=== PATIENT | male | born 1955 | race Caucasian/White ===

== ENCOUNTER 2019-04-21 22:12 | Emergency (ER) | payer OTHER ==
[2019-04-21 23:14] LABS: Absolute Lymphocytes (CBC) 0.1 K/uL (0.7-4.9); Basophils % 0.6 % (0-1.3); Lymphocytes % 4.8 % (15.3-44.8); MPV 9.7 fL (7.6-11.3); RBC Red Blood Cell Count 3.11 M/uL (4.33-5.43)
[2019-04-21 23:20] LABS: Protime INR 2.2
[2019-04-21] MEDS ORDERED: Levofloxacin500mg IV 500 MG/100 ML BAG IV ONE (23:55)
[2019-04-21] MEDS ORDERED: CEFEPIME 2 GM VIAL ONE (23:55)
[2019-04-21] MEDS ORDERED: NA CHLORIDE 0.9% 250 ML ONE (23:55)
[2019-04-22 00:14] LABS: ALT/SGPT 50 U/L (12-78); AST/SGOT 42 U/L (15-37); Alkaline Phosphatase 257 U/L (45-117); BUN Blood Urea Nitrogen 47 mg/dL (7-18); Bicarbonate 17 mmol/L (21-32); Bilirubin Direct 1.3 mg/dL (0-0.2); Bilirubin Total 2.4 mg/dL (0.2-1.0); Glucose Level 77 mg/dL (74-106); NT PRO-BNP 2131 pg/mL (<125); Potassium 5.4 mmol/L (3.5-5.1); Protein, Total 5.5 g/dL (6.4-8.2); Sodium Level 147 mmol/L (136-145); Troponin (Emerg Dept Use Only) < 0.02 ng/mL (0.0-0.045)
[2019-04-22 00:19] LABS: Magnesium 1.2 mg/dL (1.8-2.4)
[2019-04-22 00:30] LABS: Blood Morphology Comment NOT SEEN (NOT SEEN); Platelet Estimate DECR
[2019-04-22] MEDS ORDERED: MORPHINE 2 MG/ML SYR ONE (01:47)
[2019-04-22] MEDS ORDERED: ONDANSETRON 4 MG/2 ML VIAL ONE (01:47)
[2019-04-22] MEDS ORDERED: MAGNESIUM SULFATE 1 gm IVPB 1 GM/100 ML BAG IV ONE (01:48)
--- NOTE | 2019-04-22 01:48 | EDPHYS ---
Physician Documentation [facility] Name: Joel Desouza Age: 63 yrs Sex: Male : 1955 Arrival Date: 04/21/2019 Time: 22:17 Bed 4 Private MD: ED Physician Diaz Millan HPI: 04/22 00:48 This 63 yrs old Male presents to ER via Ambulatory with complaints of tw4 Shortness Of Breath, Vomiting. 00:48 The patient has shortness of breath at rest. Onset: The symptoms/episode began/occurred tw4 today. Duration: The symptoms are continuous, and are unchanged since they started. The patient's shortness of breath has no apparent modifying factors. Associated signs and symptoms: The patient has no apparent associated signs or symptoms. Severity of symptoms: At their worst the symptoms were mild in the emergency department the symptoms are unchanged. The patient has not experienced similar symptoms in the past. Historical: - Allergies: 04/21 22:42 No Known Allergies; ao - Home Meds: 22:42 tocophersolan oral oral [Active]; Prednisone 4 MG Oral [Active]; Metoprolol Tartrate ao Oral [Active]; Omeprazole Oral [Active]; - PMHx: 22:42 Cirrhosis; ao - PSHx: 22:42 Lung transplant; ao - Immunization history:: Adult Immunizations up to date. - Social history:: Smoking status: Patient/guardian denies using tobacco. - Ebola Screening: : Patient negative for fever greater than or equal to 101.5 degrees Fahrenheit, and additional compatible Ebola Virus Disease symptoms Patient denies exposure to infectious person Patient denies travel to an Ebola-affected area in the 21 days before illness onset. ROS: 04/22 00:48 ENT: Negative for injury, pain, and discharge, Neck: Negative for injury, pain, and tw4 swelling, Cardiovascular: Negative for chest pain, palpitations, and edema, Abdomen/GI: Negative for abdominal pain, nausea, vomiting, diarrhea, and constipation, Back: Negative for injury and pain, MS/Extremity: Negative for injury and deformity, Skin: Negative for injury, rash, and discoloration, Neuro: Negative for headache, weakness, numbness, tingling, and seizure. Constitutional: Positive for fever, malaise. Respiratory: Positive for cough, dyspnea on exertion, shortness of breath, on exertion. Exam: 00:48 Constitutional: This is a well developed, well nourished patient who is awake, alert, tw4 and in no acute distress. Head/Face: Normocephalic, atraumatic. Chest/axilla: Normal chest wall appearance and motion. Nontender with no deformity. No lesions are appreciated. Cardiovascular: Regular rate and rhythm with a normal S1 and S2. No gallops, murmurs, or rubs. Normal PMI, no JVD. No pulse deficits. Abdomen/GI: Soft, non-tender, with normal bowel sounds. No distension or tympany. No guarding or rebound. No evidence of tenderness throughout. Back: No spinal tenderness. No costovertebral tenderness. Full range of motion. Skin: Warm, dry with normal turgor. Normal color with no rashes, no lesions, and no evidence of cellulitis. MS/ Extremity: Pulses equal, no cyanosis. Neurovascular intact. Full, normal range of motion. Neuro: Awake and alert, GCS 15, oriented to person, place, time, and situation. Cranial nerves II-XII grossly intact. Motor strength 5/5 in all extremities. Sensory grossly intact. Cerebellar exam normal. Normal gait. 00:48 Respiratory: mild respiratory distress is noted, Respirations: normal, Breath sounds: rhonchi, are heard in the right middle lobe, right lower lobe, right posterior middle lobe and right posterior lower lobe. Vital Signs: 04/21 22:39 BP 90 / 58; Pulse 96; Resp 18; Temp 98.6(O); Pulse Ox 96% on R/A; Weight 50.8 kg (R); ao Height 5 ft. 6 in. (167.64 cm) (R); Pain 6/10; 04/22 00:05 BP 95 / 55; Pulse 95; Resp 18; Pulse Ox 100% on 2 lpm NC; ao 01:01 BP 97 / 58; Pulse 82; Resp 16; Pulse Ox 100% on 2 lpm NC; ao 02:11 BP 102 / 60; Pulse 85; Resp 16; Temp 98.5(O); Pulse Ox 99% on 2 lpm NC; ao 04/21 22:39 Body Mass Index 18.08 (50.80 kg, 167.64 cm) ao MDM: 04/21 22:30 Patient medically screened. tw4 10/23 00:48 Differential diagnosis: Anemia Anxiety Reaction reactive airway disease, Sepsis. tw4 Antibiotic administration: Not indicated. Data reviewed: vital signs, nurses notes. Data reviewed: lab test result(s), cardiac enzymes, troponin i, CBC, white blood cell count, hemoglobin, hematocrit, platelets, electrolytes, sodium, potassium, chloride, serum bicarbonate, BUN, creatinine, serum glucose. Data interpreted: Pulse oximetry: Interpretation: normal. Counseling: I had a detailed discussion with the patient and/or guardian regarding: the historical points, exam findings, and any diagnostic results supporting the discharge/admit diagnosis, lab results, radiology results. 04/21 22:43 Order name: Basic Metabolic Panel; Complete Time: 00:30 4 04/22 00:30 Interpretation: Normal except: NA 147; CL 117; CO2 17; K 5.4; BUN 47; CRE 2.73; GFR 24. tw04/21:43 Order name: CBC with Diff; Complete Time: 00:32 4 04/22 00:32 Interpretation: Normal except: RBC 3.11; WBC 1.9; HGB 9.6; HCT 28.0; PLT 47; RDW 17.5; tw4 JESSICA% 89.1; LYM% 4.8. 04/21 22:43 Order name: LFT's; Complete Time: 00:30 4 04/22 00:30 Interpretation: Normal except: AST 42; ALK 257; BILIT 2.4; BILID 1.3; TP 5.5; ALB 3.0. 04/21:43 Order name: Magnesium; Complete Time: 00:30 04/22 00:30 Interpretation: Normal except: MG 1.2. 04/21:43 Order name: NT PRO-BNP; Complete Time: 00:30 4 04/22 00:31 Interpretation: Normal except: NT PRO-BNP 2131. 04/21:43 Order name: PT-INR; Complete Time: 00:16 4 04/22 00:32 Interpretation: Normal except: PT 25.2. 04/21:43 Order name: Troponin (emerg Dept Use Only); Complete Time: 00:30 4 04/22 00:31 Interpretation: Within normal limits: TROPED < 0.02. /22 22:43 Order name: XRAY Chest (1 view) tw4 04/21 22:52 Order name: Blood Culture Adult (2) tw4 04/21 23:18 Order name: Manual Differential; Complete Time: 00:32 EDMS 04/22 00:32 Interpretation: Normal except: BANDS [F] 25; LYM 5; META 1. tw4 04/21 22:43 Order name: EKG; Complete Time: 22:44 tw4 04/21 22:43 Order name: Cardiac monitoring; Complete Time: 22:52 tw4 04/21 22:43 Order name: EKG - Nurse/Tech; Complete Time: 23:14 tw4 04/21 22:43 Order name: IV Saline Lock; Complete Time: 23:14 tw4 04/21 22:43 Order name: Labs collected and sent; Complete Time: 23:14 tw4 04/21 22:43 Order name: O2 Per Protocol; Complete Time: 22:52 tw4 04/21 22:43 Order name: O2 Sat Monitoring; Complete Time: 22:52 tw4 EC:48 Rate is 84 beats/min. Rhythm is regular. QRS [place] is Normal. [place] interval is normal. QRS tw4 interval is normal. QT interval is normal. No Q waves. T waves are Flattened. No ST changes noted. Clinical impression: NSR w/ Non-specific ST/T Changes. Interpreted by me. Reviewed by me. Administered Medications: 04/21 23:17 Drug: NS 0.9% 1000 ml Route: IV; Rate: 1 bolus; Site: right antecubital; ao 04/22 02:00 Follow up: IV Status: Completed infusion; IV Intake: 1000ml ao 00:04 Drug: LevaQUIN 500 mg Volume: 100 ml; Route: IVPB; Infused Over: 60 mins; Site: right ao antecubital; 01:00 Follow up: IV Status: Completed infusion; IV Intake: 200ml ao 00:05 Drug: Cefepime 2 grams Route: IVPB; Rate: 200 ml/hr; Infused Over: 30 mins; Site: right ao antecubital; 01:00 Follow up: IV Status: Completed infusion; IV Intake: 100ml ao 01:50 Drug: Magnesium Sulfate 1 grams Route: IVPB; Infused Over: 1 hrs; Site: right ao antecubital; 02:10 Follow up: IV Status: Infusion continued upon transfer ao 01:57 Drug: Zofran 4 mg Route: IVP; Site: right antecubital; ao 02:10 Follow up: Response: No adverse reaction ao 01:58 Drug: morphine 2 mg Route: IVP; Site: right antecubital; ao 02:10 Follow up: Response: No adverse reaction; Pain is decreased ao Disposition: 04/22/19 01:47 Transfer ordered to [facility]. Diagnosis are Neutropenia, unspecified, Fever of other and unknown origin, Thrombocytopenia, unspecified, Hypomagnesemia. - Reason for transfer: Higher level of care. - Accepting physician is Dr Lozano. - Condition is Stable. - Problem is new. - Symptoms are unchanged. Signatures: Dispatcher [employer] Chriss Rodriguez RN RN Diaz Burt MD MD tw Corrections: (The following items were deleted from the chart) 00:32 00:31 Normal except: RBC 3.11; WBC 1.9; HGB 9.6; HCT 28.0. 02:14 01:47 04/22/2019 01:47 Transfer ordered to [facility]. Diagnosis is ao Neutropenia, unspecified; Fever of other and unknown origin; Thrombocytopenia, unspecified; Hypomagnesemia. Reason for transfer: Higher level of care. Accepting physician is Dr Lozano. Condition is Stable. Problem is new. Symptoms are unchanged.
--- NOTE | 2019-04-22 01:48 | ER ---
Nurse's Notes [facility] Name: Joel Desouza Age: 63 yrs Sex: Male : 1955 Arrival Date: 04/21/2019 Time: 22:17 Bed 4 Private MD: Diagnosis: Neutropenia, unspecified;Fever of other and unknown origin;Thrombocytopenia, unspecified;Hypomagnesemia Presentation: 04/21 22:37 Presenting complaint: Patient states: Had a lung transplant 6 years ago and now when I ao had fever I come to the hospital. Pt C/O fever, SOB, Vomiting and diarrhea as today. Transition of care: patient was not received from another setting of care. Onset of symptoms is unknown. Risk Assessment: Do you want to hurt yourself or someone else? Patient reports no desire to harm self or others. Initial Sepsis Screen: Does the patient meet any 2 criteria? No. Patient's initial sepsis screen is negative. Does the patient have a suspected source of infection? No. Patient's initial sepsis screen is negative. Care prior to arrival: None. 22:37 Method Of Arrival: Ambulatory ao 22:37 Acuity: TESSIE 3 ao Triage Assessment: 22:44 General: Appears in no apparent distress. comfortable. Respiratory: Reports shortness ao of breath at rest Onset: The symptoms/episode began/occurred suddenly, the patient has moderate shortness of breath. Historical: - Allergies: 22:42 No Known Allergies; ao - Home Meds: 22:42 tocophersolan oral oral [Active]; Prednisone 4 MG Oral [Active]; Metoprolol Tartrate ao Oral [Active]; Omeprazole Oral [Active]; - PMHx: 22:42 Cirrhosis; ao - PSHx: 22:42 Lung transplant; ao - Immunization history:: Adult Immunizations up to date. - Social history:: Smoking status: Patient/guardian denies using tobacco. - Ebola Screening: : Patient negative for fever greater than or equal to 101.5 degrees Fahrenheit, and additional compatible Ebola Virus Disease symptoms Patient denies exposure to infectious person Patient denies travel to an Ebola-affected area in the 21 days before illness onset. Screenin:45 Abuse screen: Denies threats or abuse. Denies injuries from another. Nutritional ao screening: No deficits noted. Tuberculosis screening: No symptoms or risk factors identified. Fall Risk None identified. Assessment: 22:42 General: Appears in no apparent distress. comfortable, Behavior is calm, cooperative, ao appropriate for age. Pain:. Neuro: Level of Consciousness is awake, alert, obeys commands, Oriented to person, place, time, situation, Appropriate for age Moves all extremities. Full function Speech is normal, Facial symmetry appears normal. Cardiovascular: Heart tones S1 S2 Rhythm is regular. Respiratory: Airway is patent Respiratory effort is even, unlabored, Respiratory pattern is regular, symmetrical, Breath sounds are clear. GI: Abdomen is flat. : No signs and/or symptoms were reported regarding the genitourinary system. EENT: No signs and/or symptoms were reported regarding the EENT system. Derm: Skin is intact, Skin is pink, warm \T\ dry. normal, Skin temperature is warm. Musculoskeletal: Circulation, motion, and sensation intact. Range of motion: intact in all extremities. 04/22 00:05 Reassessment: Patient appears in no apparent distress at this time. Patient and/or ao family updated on plan of care and expected duration. Pain level reassessed. Patient in no distress. 01:01 Reassessment: Patient appears in no apparent distress at this time. Patient and/or ao family updated on plan of care and expected duration. Pain level reassessed. Waiting on dispo orders. Per Dr Millan patient to be transfer. 01:45 Reassessment: Received and order from DR Millan to medicate patient with Morphine 2 Mg, ao Zofran 4mg and Magnesium 1 GM. See MAR. 01:50 Reassessment: Called report to [facility]. Patient waiting on EMS for transportation. ao 02:12 Reassessment: Hand off care to [facility]. Patient VS Stable. ao Vital Signs: 04/21 22:39 BP 90 / 58; Pulse 96; Resp 18; Temp 98.6(O); Pulse Ox 96% on R/A; Weight 50.8 kg (R); ao Height 5 ft. 6 in. (167.64 cm) (R); Pain 12/08; 04/22 00:05 BP 95 / 55; Pulse 95; Resp 18; Pulse Ox 100% on 2 lpm NC; ao 01:01 BP 97 / 58; Pulse 82; Resp 16; Pulse Ox 100% on 2 lpm NC; ao 02:11 BP 102 / 60; Pulse 85; Resp 16; Temp 98.5(O); Pulse Ox 99% on 2 lpm NC; ao 04/21 22:39 Body Mass Index 18.08 (50.80 kg, 167.64 cm) ao ED Course: 04/21 22:17 Patient arrived in ED. cl3 22:26 Lm Gibson is Primary Nurse. wh 22:30 Diaz Millan MD is Attending Physician. tw4 22:39 Triage completed. ao 22:40 Arm band placed on right wrist. Patient placed in an exam room, on a stretcher, on ao oxygen, on quality assurance monitor final, on pulse oximetry, Patient notified of wait time. 22:45 Patient has correct armband on for positive identification. shelter monitor on. Pulse ao ox on. NIBP on. 22:56 XRAY Chest (1 view) In Process Unspecified. EDMS 04/22 02:12 No provider procedures requiring assistance completed. Patient transferred, IV remains ao in place. Administered Medications: 04/21 23:17 Drug: NS 0.9% 1000 ml Route: IV; Rate: 1 bolus; Site: right antecubital; ao 04/22 02:00 Follow up: IV Status: Completed infusion; IV Intake: 1000ml ao 00:04 Drug: LevaQUIN 500 mg Volume: 100 ml; Route: IVPB; Infused Over: 60 mins; Site: right ao antecubital; 01:00 Follow up: IV Status: Completed infusion; IV Intake: 200ml ao 00:05 Drug: Cefepime 2 grams Route: IVPB; Rate: 200 ml/hr; Infused Over: 30 mins; Site: right ao antecubital; 01:00 Follow up: IV Status: Completed infusion; IV Intake: 100ml ao 01:50 Drug: Magnesium Sulfate 1 grams Route: IVPB; Infused Over: 1 hrs; Site: right ao antecubital; 02:10 Follow up: IV Status: Infusion continued upon transfer ao 01:57 Drug: Zofran 4 mg Route: IVP; Site: right antecubital; ao 02:10 Follow up: Response: No adverse reaction ao 01:58 Drug: morphine 2 mg Route: IVP; Site: right antecubital; ao 02:10 Follow up: Response: No adverse reaction; Pain is decreased ao Intake: 01:00 IV: 100ml; Total: 100ml. ao 01:00 IV: 200ml; Total: 300ml. ao 02:00 IV: 1000ml; Total: 1300ml. ao Outcome: 01:47 ER care complete, transfer ordered by MD. [email or web address] 02:12 Transferred by ground EMS to [facility], Transfer form completed. ao X-rays sent w/ patient. 02:12 Condition: stable 02:14 Patient left the ED. ao Addendum: 04/24/2019 08:38 Addendum: Culture Results: Positive blood culture. pt transferred to [facility], i w faxed report to [address] [place] [address], . Signatures: Dispatcher [employer] Hilda Roman RN RN iw Ortiz, Alex, RN RN ao Habalo, Winsy wh Wadley, Terrence, MD MD tw4 Joce Shipley cl3
[2019-04-22 02:29] VITALS: BP 102/60; TEMP 98.5; O2SAT 99
--- NOTE | 2019-04-22 07:04 | EKG ---
Test Date: 2019-04-21 Test Time: 23:02:06 Construction Driller: CONSTANTINE MEASUREMENT RESULTS: Intervals: Rate: 84 NJ: 120 QRSD: 84 QT: 364 QTc: 430 Epes: P: 35 NJ: 120 QRS: 44 T: 14 INTERPRETIVE STATEMENTS: Normal sinus rhythm Septal infarct, age undetermined Abnormal ECG Compared to ECG 09/29/2010 15:19:06 Myocardial infarct finding now present Left ventricular hypertrophy no longer present Electronically Signed On 04-22-19 07:03:39 CDT by Reg Tafoya
--- NOTE | 2019-04-22 08:10 | RAD REPORT ---
EXAM DESCRIPTION: [place] Single View04/21/2019 10:56 pm CLINICAL HISTORY: Shortness of breath COMPARISON: 2011 FINDINGS: Mildly prominent interstitial pattern within the lungs bilaterally. . The heart is normal size Postsurgical changes involve the chest. IMPRESSION: Mildly prominent interstitial pattern within the lungs bilaterally. This may indicate a n atypical infection or pneumonitis
== END 2019-04-22 02:14 | disposition short-term general hospital (02) ==
LOC: ER 22:12
DX: D70.9 Neutropenia, unspecified (principal); R50.81 Fever presenting with conditions classified elsewhere; D69.6 Thrombocytopenia, unspecified; E83.42 Hypomagnesemia; Z94.4 Liver transplant status
CPT/HCPCS: 96365; 96367; 96361; 96368; 93005; 87040 ×2; 85025; 80048; 36415; 83735; 87205 ×4; 85610; 80076; 87077 ×2; 87186 ×2; 84484; 83880; 71045; 96375; 99285; J0692; J3475; J2270; J7030; J2405

== ENCOUNTER 2019-07-05 20:13 | Emergency (ER) | payer OTHER ==
--- OUTSIDE RECORDS SUMMARY | 2019-07-05 20:28 | XMS REPORT ---
:1955 Author Organization [facility] Address [address] [place] [address] [place] [id number] Care Team Providers Name Role Phone ROBERT URIAS Unavailable Unavailable RAUL LOVETT Unavailable Unavailable MARAH CASTAÑEDA Unavailable Unavailable FRANKLIN SALDIVAR Unavailable Unavailable CHRISTIANO SEE Unavailable Unavailable DELIA MARTINEZ Unavailable Unavailable CHIOMA HERRERA Unavailable Unavailable YARY LOZANO Unavailable Unavailable REG SERRANO Unavailable Unavailable RAUL RAZA Unavailable Unavailable FABRICE FERRER Unavailable Unavailable Problems This patient has no known problems. Allergies, Adverse Reactions, Alerts This patient has no known allergies or adverse reactions. Medications This patient has no known medications. Results Test Description Test Time Test Comments Text Results Atomic Results Result Comments TACROLIMUS LEVEL 2019-07-03 13:42:00 Test Item Value Reference Range Comments TACROLIMUS BLOOD (BEAKER) (test fwnl=594) 5.3 ng/mL 10.0-20.0 [id number] 12:03:00 Test Item Value Reference Range Comments PHOSPHORUS (BEAKER) (test ivnu=975) 2.9 mg/dL 2.3-4.7 [id number] 12:03:00 Test Item Value Reference Range Comments MAGNESIUM (BEAKER) (test vhnc=993) 1.7 mg/dL 1.6-2.6 COMPREHENSIVE METABOLIC [id number] 12:03:00 Test Item Value Reference Range Comments TOTAL PROTEIN (BEAKER) 5.4 gm/dL 6.0-8.3 (test bqcl=265) ALBUMIN (BEAKER) (test 3.6 g/dL 3.5-5.0 skgm=5852) ALKALINE PHOSPHATASE 436 U/L 40-150 (BEAKER) (test pwdl=550) BILIRUBIN TOTAL (BEAKER) 0.9 mg/dL 0.2-1.2 (test eiao=015) SODIUM (BEAKER) (test 140 meq/L 136-145 ewqc=446) POTASSIUM (BEAKER) (test 4.3 meq/L 3.5-5.1 qqvb=800) CHLORIDE (BEAKER) (test 113 meq/L 98-107 wnuc=456) CO2 (BEAKER) (test 19 meq/L 22-29 exlo=716) BLOOD UREA NITROGEN 25 mg/dL 7-21 (BEAKER) (test wyez=524) CREATININE (BEAKER) (test 1.63 mg/dL 0.57-1.25 uglg=761) GLUCOSE RANDOM (BEAKER) 92 mg/dL 70-105 (test gmha=984) CALCIUM (BEAKER) (test 8.4 mg/dL 8.4-10.2 tqxo=737) AST (SGOT) (BEAKER) (test 41 U/L 5-34 rjsg=157) ALT (SGPT) (BEAKER) (test 34 U/L 6-55 snqi=583) EGFR (BEAKER) (test 43 mL/min/1.73 sq m ESTIMATED GFR IS NOT xtie=3365) ACCURATE CREATININE CLEARANCE IN PREDICTING GLOMERULAR FILTRATION RATE. ESTIMATED GFR IS NOT APPLICABLE FOR DIALYSIS PATIENTS. LACTATE DEHYDROGENASE (LDH)2019-07-03 12:03:00 Test Item Value Reference Range Comments LACTATE DEHYDROGENASE (BEAKER) (test ltzp=823) 207 U/L 125-220 CBC W/PLT COUNT & AUTO [id number] 11:41:00 Test Item Value Reference Range Comments WHITE BLOOD CELL COUNT (BEAKER) (test xhfx=061) 5.8 K/ L 3.5-10.5 RED BLOOD CELL COUNT (BEAKER) (test yxkp=301) 3.07 M/ L 4.63-6.08 HEMOGLOBIN (BEAKER) (test kaht=589) 9.3 GM/DL 13.7-17.5 HEMATOCRIT (BEAKER) (test nbvh=864) 28.4 % 40.1-51.0 MEAN CORPUSCULAR VOLUME (BEAKER) (test agut=648) 92.5 fL 79.0-92.2 MEAN CORPUSCULAR HEMOGLOBIN (BEAKER) (test 30.3 pg 25.7-32.2 zhdi=083) MEAN CORPUSCULAR HEMOGLOBIN CONC (BEAKER) (test 32.7 GM/DL 32.3-36.5 oruv=854) RED CELL DISTRIBUTION WIDTH (BEAKER) (test 17.5 % 11.6-14.4 gbny=556) PLATELET COUNT (BEAKER) (test ubny=036) 114 K/CU MM 150-450 MEAN PLATELET VOLUME (BEAKER) (test dyqi=586) 11.1 fL 9.4-12.4 NUCLEATED RED BLOOD CELLS (BEAKER) (test 0 /100 WBC 0-0 vduz=297) NEUTROPHILS RELATIVE PERCENT (BEAKER) (test 76 % mwsi=870) LYMPHOCYTES RELATIVE PERCENT (BEAKER) (test 12 % abyn=146) MONOCYTES RELATIVE PERCENT (BEAKER) (test 7 % zmhk=766) EOSINOPHILS RELATIVE PERCENT (BEAKER) (test 4 % rzvo=989) BASOPHILS RELATIVE PERCENT (BEAKER) (test 1 % dexl=589) NEUTROPHILS ABSOLUTE COUNT (BEAKER) (test 4.41 K/ L 1.78-5.38 eviw=004) LYMPHOCYTES ABSOLUTE COUNT (BEAKER) (test 0.70 K/ L 1.32-3.57 tybw=376) MONOCYTES ABSOLUTE COUNT (BEAKER) (test 0.42 K/ L 0.30-0.82 njem=238) EOSINOPHILS ABSOLUTE COUNT (BEAKER) (test 0.22 K/ L 0.04-0.54 fnbp=850) BASOPHILS ABSOLUTE COUNT (BEAKER) (test 0.04 K/ L 0.01-0.08 sbdb=220) IMMATURE GRANULOCYTES-RELATIVE PERCENT (BEAKER) 0 % 0-1 (test euxj=5394) U/S, [id number] 12:23:00Referring: Dr. Yary Fernando for exam: ->ABDOMINAL PAINReason for exam:->ASCITESFINAL REPORT Procedure: Ultrasound-Guided Paracentesis: Clinical History: Ascites Physician: Natali Sedation: None Local anesthesia: 1% Xylocaine and sodium bicarbonate Technique: Following informed consent, the right abdomen was prepped and draped with maximal sterile barriertechnique and local anesthesia given. A 5 F paracentesis catheter was inserted into the peritoneal space with ultrasound guidance and 2600 cc of yellow ascites was aspirated. The catheter was removed.No immediate complications were noted. Impression: Uncomplicated ultrasound-guided paracentesis. Signed: Joey Hurst MDReport Verified Date/Time : 06/27/2019 12:23:23 Reading Location: [facility] C013T Transitional Reading Room BASIC METABOLIC [id number] 10:54:00 Test Item Value Reference Range Comments SODIUM (BEAKER) (test 139 meq/L 136-145 suat=198) POTASSIUM (BEAKER) (test 4.0 meq/L 3.5-5.1 kubs=558) CHLORIDE (BEAKER) (test 113 meq/L 98-107 wbbx=977) CO2 (BEAKER) (test 17 meq/L 22-29 oqsc=281) BLOOD UREA NITROGEN 22 mg/dL 7-21 (BEAKER) (test dgxh=799) CREATININE (BEAKER) (test 1.32 mg/dL 0.57-1.25 qpjl=875) GLUCOSE RANDOM (BEAKER) 80 mg/dL 70-105 (test udnt=535) CALCIUM (BEAKER) (test 8.0 mg/dL 8.4-10.2 xnzu=084) EGFR (BEAKER) (test 55 mL/min/1.73 sq m ESTIMATED GFR IS NOT uvlk=3262) ACCURATE CREATININE CLEARANCE IN PREDICTING GLOMERULAR FILTRATION RATE. ESTIMATED GFR IS NOT APPLICABLE FOR DIALYSIS PATIENTS. PROTHROMBIN [id number] 10:41:00 Test Item Value Reference Range Comments PROTIME (BEAKER) (test hfbi=261) 17.0 seconds 11.9-14.2 INR (BEAKER) (test gajm=068) 1.4 <=5.9 Effective 11/26/2018: PT Reference Range ChangeNew: 11.9-14.2 Previous: 11.7- 14.7RECOMMENDED COUMADIN/WARFARIN INR THERAPY RANGESSTANDARD DOSE: 2.0-3.0 Includes: PROPHYLAXIS for venous thrombosis, systemic embolization; TREATMENT for venous thrombosis and/or pulmonary embolus.HIGH RISK: Target INR is2.5-3.5 for patients wiht mechanical heart valves.CBC W/PLT COUNT & AUTO [id number] 10:35:00 Test Item Value Reference Range Comments WHITE BLOOD CELL COUNT (BEAKER) (test svsa=656) 4.8 K/ L 3.5-10.5 RED BLOOD CELL COUNT (BEAKER) (test swhp=595) 3.01 M/ L 4.63-6.08 HEMOGLOBIN (BEAKER) (test ovjp=237) 9.0 GM/DL 13.7-17.5 HEMATOCRIT (BEAKER) (test xxcu=697) 27.9 % 40.1-51.0 MEAN CORPUSCULAR VOLUME (BEAKER) (test ynvs=237) 92.7 fL 79.0-92.2 MEAN CORPUSCULAR HEMOGLOBIN (BEAKER) (test 29.9 pg 25.7-32.2 ncid=178) MEAN CORPUSCULAR HEMOGLOBIN CONC (BEAKER) (test 32.3 GM/DL 32.3-36.5 wfzl=742) RED CELL DISTRIBUTION WIDTH (BEAKER) (test 17.4 % 11.6-14.4 krns=010) PLATELET COUNT (BEAKER) (test fwcs=296) 105 K/CU MM 150-450 MEAN PLATELET VOLUME (BEAKER) (test ahrf=647) 11.4 fL 9.4-12.4 NUCLEATED RED BLOOD CELLS (BEAKER) (test 0 /100 WBC 0-0 simu=901) NEUTROPHILS RELATIVE PERCENT (BEAKER) (test 66 % zewa=070) LYMPHOCYTES RELATIVE PERCENT (BEAKER) (test 22 % kiwz=749) MONOCYTES RELATIVE PERCENT (BEAKER) (test 8 % ejku=543) EOSINOPHILS RELATIVE PERCENT (BEAKER) (test 3 % rrgd=652) BASOPHILS RELATIVE PERCENT (BEAKER) (test 1 % jbcx=067) NEUTROPHILS ABSOLUTE COUNT (BEAKER) (test 3.14 K/ L 1.78-5.38 aesk=646) LYMPHOCYTES ABSOLUTE COUNT (BEAKER) (test 1.05 K/ L 1.32-3.57 xxxm=007) MONOCYTES ABSOLUTE COUNT (BEAKER) (test 0.37 K/ L 0.30-0.82 vtpc=777) EOSINOPHILS ABSOLUTE COUNT (BEAKER) (test 0.14 K/ L 0.04-0.54 ainb=334) BASOPHILS ABSOLUTE COUNT (BEAKER) (test 0.05 K/ L 0.01-0.08 zjrx=130) IMMATURE GRANULOCYTES-RELATIVE PERCENT (BEAKER) 0 % 0-1 (test geof=9894) TACROLIMUS [id number] 14:52:00 Test Item Value Reference Range Comments TACROLIMUS BLOOD (BEAKER) (test bzau=830) 7.9 ng/mL 10.0-20.0 [id number] 14:27:00 Test Item Value Reference Range Comments MAGNESIUM (BEAKER) (test imbj=187) 1.6 mg/dL 1.6-2.6 BASIC METABOLIC [id number] 14:27:00 Test Item Value Reference Range Comments SODIUM (BEAKER) (test 140 meq/L 136-145 uyka=212) POTASSIUM (BEAKER) (test 4.0 meq/L 3.5-5.1 swxm=125) CHLORIDE (BEAKER) (test 115 meq/L 98-107 chmb=739) CO2 (BEAKER) (test 18 meq/L 22-29 joji=984) BLOOD UREA NITROGEN 28 mg/dL 7-21 (BEAKER) (test pqjn=538) CREATININE (BEAKER) (test 1.71 mg/dL 0.57-1.25 ktno=865) GLUCOSE RANDOM (BEAKER) 113 mg/dL 70-105 (test pnny=786) CALCIUM (BEAKER) (test 8.7 mg/dL 8.4-10.2 hdpu=930) EGFR (BEAKER) (test 41 mL/min/1.73 sq m ESTIMATED GFR IS NOT mddn=0919) ACCURATE CREATININE CLEARANCE IN PREDICTING GLOMERULAR FILTRATION RATE. ESTIMATED GFR IS NOT APPLICABLE FOR DIALYSIS PATIENTS. CBC W/PLT COUNT & AUTO [id number] 14:18:00 Test Item Value Reference Range Comments WHITE BLOOD CELL COUNT (BEAKER) (test qqdw=462) 8.1 K/ L 3.5-10.5 RED BLOOD CELL COUNT (BEAKER) (test zxdl=703) 3.48 M/ L 4.63-6.08 HEMOGLOBIN (BEAKER) (test egnp=621) 10.2 GM/DL 13.7-17.5 HEMATOCRIT (BEAKER) (test pbdw=401) 32.9 % 40.1-51.0 MEAN CORPUSCULAR VOLUME (BEAKER) (test jmet=545) 94.5 fL 79.0-92.2 MEAN CORPUSCULAR HEMOGLOBIN (BEAKER) (test 29.3 pg 25.7-32.2 kwje=516) MEAN CORPUSCULAR HEMOGLOBIN CONC (BEAKER) (test 31.0 GM/DL 32.3-36.5 vhep=408) RED CELL DISTRIBUTION WIDTH (BEAKER) (test 16.4 % 11.6-14.4 wucu=204) PLATELET COUNT (BEAKER) (test felj=745) 83 K/CU MM 150-450 MEAN PLATELET VOLUME (BEAKER) (test bciu=069) 10.7 fL 9.4-12.4 NUCLEATED RED BLOOD CELLS (BEAKER) (test 0 /100 WBC 0-0 klei=049) NEUTROPHILS RELATIVE PERCENT (BEAKER) (test 84 % nqae=307) LYMPHOCYTES RELATIVE PERCENT (BEAKER) (test 11 % zbwe=161) MONOCYTES RELATIVE PERCENT (BEAKER) (test 3 % zevg=617) EOSINOPHILS RELATIVE PERCENT (BEAKER) (test 1 % poxo=047) BASOPHILS RELATIVE PERCENT (BEAKER) (test 1 % nsxs=834) NEUTROPHILS ABSOLUTE COUNT (BEAKER) (test 6.80 K/ L 1.78-5.38 ianr=562) LYMPHOCYTES ABSOLUTE COUNT (BEAKER) (test 0.87 K/ L 1.32-3.57 fsyr=759) MONOCYTES ABSOLUTE COUNT (BEAKER) (test rlff=562) 0.26 K/ L 0.30-0.82 EOSINOPHILS ABSOLUTE COUNT (BEAKER) (test 0.11 K/ L 0.04-0.54 loks=758) BASOPHILS ABSOLUTE COUNT (BEAKER) (test ifko=049) 0.05 K/ L 0.01-0.08 IMMATURE GRANULOCYTES-RELATIVE PERCENT (BEAKER) 0 % 0-1 (test yjwh=6084) CMV PCR, [id number] 15:45:00 Test Item Value Reference Range Comments CMV VIRAL LOAD - NEGATIVE Negative or below the linear (BEAKER) (test tdui=7514) range of the assay (<375 copies/mL) Cytomegalovirus (CMV) infection can cause significant disease in immunosuppressed patients. However,it is common for CMV to manifest as a limited infection which is of no clinical significance in immunosuppressed patients or in healthy individuals.Viral load measurements are helpful to identify clinical CMV infection and to guide the pre-emptive management of antiviral therapy. For treatment of CMVinfection due to reactivation in transplant recipients, a threshold between 4,000 and 5,000 copies/mL is suggested. For treatment of primary CMV infection, a lower threshold can be used.CMV infection may also be monitored using weekly serial measurements. Serial measurements of CMV DNA viral load canbe evaluated by identifying a 10- fold change, as well as assessing the CMV DNA viral load and the clinical context for each patient.The plasma CMV DNA viral load was detected using quantitative polymerase chain reaction and fluorescent monitoring of a specific hybridized probe. Genetic variation and other factors can affect the accuracy of nucleic acid testing. Therefore, the results should be interpreted in light of clinical data. A negative result may not exclude the presence of CMV disease.This test was developed and its performance characteristics determined by the [facility] Pathology Department, Section of Molecular Pathology. It has not been cleared or approved by the U.S. Food and Drug Administration (FDA), since FDA approval is not required for clinical use of the test. Validation was done as required by The Clinical Laboratory Improvement Amendments of 1988.TACROLIMUS [id number] 12:22:00 Test Item Value Reference Range Comments TACROLIMUS BLOOD (BEAKER) (test xynj=540) 8.9 ng/mL 10.0-20.0 RAD, CHEST, 2 [id number] 11:35:00Referring: Dr. Yary Fernando for Exam:->s/p lung transplantFINAL REPORT INDICATION: s/ p lung transplant COMPARISON: None TECHNIQUE: Frontal and lateral views of the chest. FINDINGS: Lungs and pleura: Clear lungs. No effusion.Heart and mediastinum: Normal heart size. Unremarkable mediastinal contours.Osseous structures: No acute abnormality.Additional findings: Post procedure changes compatible with prior transplant. IMPRESSION: No acute intrathoracic abnormality. Signed: Fitz Hall MDReport Verified Date/Time: 05/19/2019 11 :35:20 Reading Location: [facility] Radiology Reading Room COMPREHENSIVE METABOLIC [id number] 10:12:00 Test Item Value Reference Range Comments TOTAL PROTEIN (BEAKER) 5.8 gm/dL 6.0-8.3 (test zuci=732) ALBUMIN (BEAKER) (test 3.8 g/dL 3.5-5.0 lsum=2903) ALKALINE PHOSPHATASE 447 U/L 40-150 (BEAKER) (test qzzj=827) BILIRUBIN TOTAL (BEAKER) 0.8 mg/dL 0.2-1.2 (test tlbl=450) SODIUM (BEAKER) (test 145 meq/L 136-145 whku=879) POTASSIUM (BEAKER) (test 5.8 meq/L 3.5-5.1 jtnx=220) CHLORIDE (BEAKER) (test 120 meq/L 98-107 dwdl=308) CO2 (BEAKER) (test 18 meq/L 22-29 rldy=738) BLOOD UREA NITROGEN 23 mg/dL 7-21 (BEAKER) (test amkb=710) CREATININE (BEAKER) (test 2.28 mg/dL 0.57-1.25 ppfc=050) GLUCOSE RANDOM (BEAKER) 97 mg/dL 70-105 (test pugj=701) CALCIUM (BEAKER) (test 8.8 mg/dL 8.4-10.2 ikkr=283) AST (SGOT) (BEAKER) (test 47 U/L 5-34 lcli=706) ALT (SGPT) (BEAKER) (test 43 U/L 6-55 zdhr=275) EGFR (BEAKER) (test 29 mL/min/1.73 sq m ESTIMATED GFR IS NOT nozt=6943) ACCURATE CREATININE CLEARANCE IN PREDICTING GLOMERULAR FILTRATION RATE. ESTIMATED GFR IS NOT APPLICABLE FOR DIALYSIS PATIENTS. [id number] 10:04:00 Test Item Value Reference Range Comments PHOSPHORUS (BEAKER) (test arsp=024) 3.7 mg/dL 2.3-4.7 [id number] 10:04:00 Test Item Value Reference Range Comments MAGNESIUM (BEAKER) (test ahnt=172) 1.5 mg/dL 1.6-2.6 LACTATE DEHYDROGENASE (LDH)2019-05-19 10:04:00 Test Item Value Reference Range Comments LACTATE DEHYDROGENASE (BEAKER) (test voub=870) 186 U/L 125-220 CBC W/PLT COUNT & AUTO [id number] 09:24:00 Test Item Value Reference Range Comments WHITE BLOOD CELL COUNT (BEAKER) (test fknz=122) 4.5 K/ L 3.5-10.5 RED BLOOD CELL COUNT (BEAKER) (test yrtx=138) 3.49 M/ L 4.63-6.08 HEMOGLOBIN (BEAKER) (test tzqh=789) 10.3 GM/DL 13.7-17.5 HEMATOCRIT (BEAKER) (test cbhd=131) 34.0 % 40.1-51.0 MEAN CORPUSCULAR VOLUME (BEAKER) (test gnjz=590) 97.4 fL 79.0-92.2 MEAN CORPUSCULAR HEMOGLOBIN (BEAKER) (test 29.5 pg 25.7-32.2 vqbn=247) MEAN CORPUSCULAR HEMOGLOBIN CONC (BEAKER) (test 30.3 GM/DL 32.3-36.5 kfls=546) RED CELL DISTRIBUTION WIDTH (BEAKER) (test 17.1 % 11.6-14.4 obab=625) PLATELET COUNT (BEAKER) (test ishe=081) 96 K/CU MM 150-450 MEAN PLATELET VOLUME (BEAKER) (test wdmz=384) 11.0 fL 9.4-12.4 NUCLEATED RED BLOOD CELLS (BEAKER) (test 0 /100 WBC 0-0 imrl=658) NEUTROPHILS RELATIVE PERCENT (BEAKER) (test 64 % ipuy=828) LYMPHOCYTES RELATIVE PERCENT (BEAKER) (test 21 % gjhk=755) MONOCYTES RELATIVE PERCENT (BEAKER) (test 9 % ohxu=980) EOSINOPHILS RELATIVE PERCENT (BEAKER) (test 4 % vkjj=403) BASOPHILS RELATIVE PERCENT (BEAKER) (test 1 % lunm=061) NEUTROPHILS ABSOLUTE COUNT (BEAKER) (test 2.91 K/ L 1.78-5.38 ruhv=916) LYMPHOCYTES ABSOLUTE COUNT (BEAKER) (test 0.95 K/ L 1.32-3.57 fxay=924) MONOCYTES ABSOLUTE COUNT (BEAKER) (test mvxt=562) 0.40 K/ L 0.30-0.82 EOSINOPHILS ABSOLUTE COUNT (BEAKER) (test 0.17 K/ L 0.04-0.54 yxcs=246) BASOPHILS ABSOLUTE COUNT (BEAKER) (test okyk=701) 0.04 K/ L 0.01-0.08 IMMATURE GRANULOCYTES-RELATIVE PERCENT (BEAKER) 1 % 0-1 (test luar=5713) CMV PCR, [id number] 14:26:00 Test Item Value Reference Range Comments CMV VIRAL LOAD - NEGATIVE Negative or below the linear (BEAKER) (test jzbi=7076) range of the assay (<375 copies/mL) Cytomegalovirus (CMV) infection can cause significant disease in immunosuppressed patients. However,it is common for CMV to manifest as a limited infection which is of no clinical significance in immunosuppressed patients or in healthy individuals.Viral load measurements are helpful to identify clinical CMV infection and to guide the pre-emptive management of antiviral therapy. For treatment of CMVinfection due to reactivation in transplant recipients, a threshold between 4,000 and 5,000 copies/mL is suggested. For treatment of primary CMV infection, a lower threshold can be used.CMV infection may also be monitored using weekly serial measurements. Serial measurements of CMV DNA viral load canbe evaluated by identifying a 10- fold change, as well as assessing the CMV DNA viral load and the clinical context for each patient.The plasma CMV DNA viral load was detected using quantitative polymerase chain reaction and fluorescent monitoring of a specific hybridized probe. Genetic variation and other factors can affect the accuracy of nucleic acid testing. Therefore, the results should be interpreted in light of clinical data. A negative result may not exclude the presence of CMV disease.This test was developed and its performance characteristics determined by the [facility] Pathology Department, Section of Molecular Pathology. It has not been cleared or approved by the U.S. Food and Drug Administration (FDA), since FDA approval is not required for clinical use of the test. Validation was done as required by The Clinical Laboratory Improvement Amendments of 1988.MR, ABDOMEN, [id number] 15:52:00Referring: Dr. Yary Noriega MRCPWith MRCPLocation: For [place] Only->with MRCPFINAL REPORT TECHNIQUE: MRI of the abdomen and MRCP WITHOUT and WITH intravenous contrast. 3-D volume reconstructions were obtained to evaluate the biliary ductal system. INDICATION: with MRCP, Cirrhosis, elevated alkaline phosphatase, screening for cancer, evaluate bile ducts. COMPARISON: CT of the abdomen and pelvis from 11/2013. FINDINGS: LOWER THORAX: Unchanged left pleural thickening. LIVER: Nodular liver contour compatible with cirrhosis. No hepatic signal abnormality. There are scattered simple cysts throughout the liver. There is a 1 cm focus of arterial enhancement in segment without associated washout (series 19 image 57). There is subtle T2 hyperintensity associated with this lesion. Additional subcentimeter foci of arterial phase enhancement without associated T2 abnormality or washout in the periphery of segment and VIII are likely perfusional.BILIARY: Cholelithiasis. No gallbladder wall thickening.. No biliary ductal dilatation or filling defect.SPLEEN: 17.4 cm splenomegaly. Scattered nonenhancing splenic cysts.PANCREAS: No focal masses or ductal dilatation. ADRENALS: No adrenal nodules.KIDNEYS/URETERS: No hydronephrosis or solid mass lesions. Simple cysts in both kidneys. PERITONEUM/RETROPERITONEUM: Moderate ascites.LYMPH NODES: No lymphadenopathy.VESSELS: The portal vein is patent and measures 1.9 cm. Conventional hepatic arterial anatomy. 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 GI TRACT: There are thickened loops of small bowel and colon, which likely related to patient's volume status. This is similar to comparison prior studies.. BONES AND SOFT TISSUES: Unremarkable. IMPRESSION: 1.Cirrhosis andportal hypertension. 2.A 1 cm segment arterial enhancing lesion without washout and associated T2 hyperintensity which could represent shunt. However dysplastic nodule or early HCC are considerations. Recommend follow-up MRI in three months for reevaluation. 3.Tiny arterial enhancing foci without associated T2 abnormality or washout are most likely perfusional. These can also be reassessed on follow-up MRI. 4.Cholelithiasis. Signed: Georgi Mike MDReport Verified Date/Time: 2018 15:52:20 Reading Location: [address] TACROLIMUS [id number] 13:36:00 Test Item Value Reference Range Comments TACROLIMUS BLOOD (BEAKER) (test mmmc=323) 9.8 ng/mL 10.0-20.0 [id number] 13:00:00 Test Item Value Reference Range Comments PHOSPHORUS (BEAKER) (test nnww=614) 3.2 mg/dL 2.3-4.7 [id number] 13:00:00 Test Item Value Reference Range Comments MAGNESIUM (BEAKER) (test jpcs=171) 1.6 mg/dL 1.6-2.6 COMPREHENSIVE METABOLIC [id number] 13:00:00 Test Item Value Reference Range Comments TOTAL PROTEIN (BEAKER) 5.1 gm/dL 6.0-8.3 (test fybc=300) ALBUMIN (BEAKER) (test 3.3 g/dL 3.5-5.0 crhp=0443) ALKALINE PHOSPHATASE 392 U/L 40-150 (BEAKER) (test fzdi=584) BILIRUBIN TOTAL (BEAKER) 0.8 mg/dL 0.2-1.2 (test vsox=745) SODIUM (BEAKER) (test 139 meq/L 136-145 jjxw=712) POTASSIUM (BEAKER) (test 4.4 meq/L 3.5-5.1 cvhp=323) CHLORIDE (BEAKER) (test 113 meq/L 98-107 hkyr=136) CO2 (BEAKER) (test 19 meq/L 22-29 qkeg=151) BLOOD UREA NITROGEN 19 mg/dL 7-21 (BEAKER) (test gcjn=792) CREATININE (BEAKER) (test 1.70 mg/dL 0.57-1.25 bwck=379) GLUCOSE RANDOM (BEAKER) 130 mg/dL 70-105 (test nbdo=599) CALCIUM (BEAKER) (test 8.0 mg/dL 8.4-10.2 avzv=779) AST (SGOT) (BEAKER) (test 43 U/L 5-34 hmib=384) ALT (SGPT) (BEAKER) (test 36 U/L 6-55 neuv=716) EGFR (BEAKER) (test 41 mL/min/1.73 sq m ESTIMATED GFR IS NOT zmvy=5653) ACCURATE CREATININE CLEARANCE IN PREDICTING GLOMERULAR FILTRATION RATE. ESTIMATED GFR IS NOT APPLICABLE FOR DIALYSIS PATIENTS. CBC W/PLT COUNT & AUTO [id number] 12:49:00 Test Item Value Reference Range Comments WHITE BLOOD CELL COUNT (BEAKER) (test bipm=450) 1.7 K/ L 3.5-10.5 RED BLOOD CELL COUNT (BEAKER) (test hmcn=052) 2.98 M/ L 4.63-6.08 HEMOGLOBIN (BEAKER) (test ptnf=868) 8.8 GM/DL 13.7-17.5 HEMATOCRIT (BEAKER) (test zuio=908) 28.9 % 40.1-51.0 MEAN CORPUSCULAR VOLUME (BEAKER) (test xita=838) 97.0 fL 79.0-92.2 MEAN CORPUSCULAR HEMOGLOBIN (BEAKER) (test 29.5 pg 25.7-32.2 tnpp=971) MEAN CORPUSCULAR HEMOGLOBIN CONC (BEAKER) (test 30.4 GM/DL 32.3-36.5 ycyi=737) RED CELL DISTRIBUTION WIDTH (BEAKER) (test 16.9 % 11.6-14.4 myuk=676) PLATELET COUNT (BEAKER) (test ayns=897) 60 K/CU MM 150-450 MEAN PLATELET VOLUME (BEAKER) (test pwhx=032) 11.1 fL 9.4-12.4 NUCLEATED RED BLOOD CELLS (BEAKER) (test 0 /100 WBC 0-0 lpks=860) No clot(CELLAVISION MANUAL DIFF)2019-05-13 12:49:00 Test Item Value Reference Range Comments NEUTROPHILS - REL (CELLAVISION)(BEAKER) (test 66 % epvy=0893) LYMPHOCYTES - REL (CELLAVISION)(BEAKER) (test 18 % xthy=6451) MONOCYTES - REL (CELLAVISION)(BEAKER) (test 9 % ztcz=0765) EOSINOPHILS - REL (CELLAVISION)(BEAKER) (test 1 % nwiw=5431) BASOPHILS - REL (CELLAVISION)(BEAKER) (test 2 % xnjf=4955) BANDS - REL (CELLAVISION)(BEAKER) (test eoai=5259) 3 % 0-10 NEUTROPHILS - ABS (CELLAVISION)(BEAKER) (test 1.12 K/ul 1.78-5.38 murb=4490) LYMPHOCYTES - ABS (CELLAVISION)(BEAKER) (test 0.31 K/ul 1.32-3.57 olyr=4703) MONOCYTES - ABS (CELLAVISION)(BEAKER) (test 0.15 K/uL 0.30-0.82 nnpw=4329) EOSINOPHILS - ABS (CELLAVISION)(BEAKER) (test 0.02 K/uL 0.04-0.54 armi=9277) BASOPHILS - ABS (CELLAVISION)(BEAKER) (test 0.03 K/uL 0.01-0.08 ezxr=4720) BANDS - ABS (CELLAVISION)(BEAKER) (test aefj=1252) 0.05 K/uL 0.00-0.80 TOTAL COUNTED (BEAKER) (test tuew=6646) 100 WBC MORPHOLOGY (BEAKER) (test vptl=025) Normal PLT MORPHOLOGY (BEAKER) (test fivp=489) Normal ANISOCYTOSIS (BEAKER) (test suuu=458) 1+ few POIKILOCYTES (BEAKER) (test jgvv=448) 3+ many ELLIPTOCYTES (BEAKER) (test gbwa=888) 1+ few OVALOCYTES (BEAKER) (test oofd=045) 3+ many ARTIFACT (CELLAVISION)(BEAKER) (test gbsg=6700) Present PLATELET CONCENTRATION (CELLAVISION)(BEAKER) (test Decreased qblc=1889) Received comment: User comments: Slide comments:TACROLIMUS [id number] 09:45 :00 Test Item Value Reference Range Comments TACROLIMUS BLOOD (BEAKER) (test xkkj=297) 13.2 ng/mL 10.0-20.0 ALPHA FETOPROTEIN (AFP), TUMOR [id number] 18:10:00 Test Item Value Reference Range Comments ALPHA-FETOPROTEIN (BEAKER) (test xbhy=1683) 2.8 ng/mL <10.0 [id number] 17:45:00 Test Item Value Reference Range Comments MAGNESIUM (BEAKER) (test dttu=083) 1.6 mg/dL 1.6-2.6 BASIC METABOLIC [id number] 17:45:00 Test Item Value Reference Range Comments SODIUM (BEAKER) (test 141 meq/L 136-145 tfna=211) POTASSIUM (BEAKER) (test 5.1 meq/L 3.5-5.1 liey=691) CHLORIDE (BEAKER) (test 115 meq/L 98-107 gvzm=214) CO2 (BEAKER) (test 25 meq/L 22-29 rhzc=056) BLOOD UREA NITROGEN 27 mg/dL 7-21 (BEAKER) (test wjcl=032) CREATININE (BEAKER) (test 1.61 mg/dL 0.57-1.25 hvvs=767) GLUCOSE RANDOM (BEAKER) 101 mg/dL 70-105 (test vugx=919) CALCIUM (BEAKER) (test 8.2 mg/dL 8.4-10.2 acod=086) EGFR (BEAKER) (test 44 mL/min/1.73 sq m ESTIMATED GFR IS NOT gvcf=4937) ACCURATE CREATININE CLEARANCE IN PREDICTING GLOMERULAR FILTRATION RATE. ESTIMATED GFR IS NOT APPLICABLE FOR DIALYSIS PATIENTS. HEPATIC FUNCTION [id number] 17:45:00 Test Item Value Reference Range Comments TOTAL PROTEIN (BEAKER) (test jxsp=536) 4.9 gm/dL 6.0-8.3 ALBUMIN (BEAKER) (test vhsw=3271) 3.1 g/dL 3.5-5.0 BILIRUBIN TOTAL (BEAKER) (test ddmw=095) 1.0 mg/dL 0.2-1.2 BILIRUBIN DIRECT (BEAKER) (test xzxw=629) 0.6 mg/dL 0.1-0.5 ALKALINE PHOSPHATASE (BEAKER) (test ugae=248) 340 U/L 40-150 AST (SGOT) (BEAKER) (test lfji=469) 41 U/L 5-34 ALT (SGPT) (BEAKER) (test hutl=005) 32 U/L 6-55 BASIC METABOLIC [id number] 17:43:00 Test Item Value Reference Range Comments SODIUM (BEAKER) (test 141 meq/L 136-145 tsqm=190) POTASSIUM (BEAKER) (test 5.1 meq/L 3.5-5.1 wjhi=763) CHLORIDE (BEAKER) (test 115 meq/L 98-107 zkkm=829) CO2 (BEAKER) (test 25 meq/L 22-29 qetp=316) BLOOD UREA NITROGEN 27 mg/dL 7-21 (BEAKER) (test iiac=563) CREATININE (BEAKER) (test 1.63 mg/dL 0.57-1.25 fpog=584) GLUCOSE RANDOM (BEAKER) 100 mg/dL 70-105 (test ryfk=950) CALCIUM (BEAKER) (test 8.2 mg/dL 8.4-10.2 czfr=385) EGFR (BEAKER) (test 43 mL/min/1.73 sq m ESTIMATED GFR IS NOT rrny=1220) ACCURATE CREATININE CLEARANCE IN PREDICTING GLOMERULAR FILTRATION RATE. ESTIMATED GFR IS NOT APPLICABLE FOR DIALYSIS PATIENTS. URINALYSIS W/ [id number] 17:35:00 Test Item Value Reference Range Comments COLOR (BEAKER) (test irvy=286) Yellow CLARITY (BEAKER) (test stzh=475) Clear SPECIFIC GRAVITY UA (BEAKER) (test uhvq=869) 1.023 1.001-1.035 PH UA (BEAKER) (test mvlo=480) 5.0 5.0-8.0 PROTEIN UA (BEAKER) (test ohnq=812) 20 mg/dL Negative GLUCOSE UA (BEAKER) (test deey=675) Negative Negative KETONES UA (BEAKER) (test wlqa=947) Negative Negative BILIRUBIN UA (BEAKER) (test gbgh=104) Negative Negative BLOOD UA (BEAKER) (test zzqi=174) Negative Negative NITRITE UA (BEAKER) (test waxr=883) Negative Negative LEUKOCYTE ESTERASE UA (BEAKER) (test kkkk=165) Negative Negative UROBILINOGEN UA (BEAKER) (test ckqj=560) 0.2 mg/dL 0.2-1.0 RBC UA (BEAKER) (test ifmz=783) < /HPF WBC UA (BEAKER) (test iscq=135) < /HPF MUCUS (BEAKER) (test xcbl=7133) Occasional HYALINE CASTS (BEAKER) (test pxsi=599) 2 /LPF SOURCE(BEAKER) (test uotz=6976) PROTHROMBIN [id number] 17:26:00 Test Item Value Reference Range Comments PROTIME (BEAKER) (test yzjx=752) 15.9 seconds 11.9-14.2 INR (BEAKER) (test fskt=964) 1.3 <=5.9 Effective 11/26/2018: PT Reference Range ChangeNew: 11.9-14.2 Previous: 11.7- 14.7RECOMMENDED COUMADIN/WARFARIN INR THERAPY RANGESSTANDARD DOSE: 2.0-3.0 Includes: PROPHYLAXIS for venous thrombosis, systemic embolization; TREATMENT for venous thrombosis and/or pulmonary embolus.HIGH RISK: Target INR is2.5-3.5 for patients wiht mechanical heart valves.CBC W/PLT COUNT & AUTO [id number] 17:19:00 Test Item Value Reference Range Comments WHITE BLOOD CELL COUNT (BEAKER) (test xtnm=745) 4.0 K/ L 3.5-10.5 RED BLOOD CELL COUNT (BEAKER) (test thra=984) 3.08 M/ L 4.63-6.08 HEMOGLOBIN (BEAKER) (test ckfq=611) 9.1 GM/DL 13.7-17.5 HEMATOCRIT (BEAKER) (test mhaz=496) 29.7 % 40.1-51.0 MEAN CORPUSCULAR VOLUME (BEAKER) (test nfoy=849) 96.4 fL 79.0-92.2 MEAN CORPUSCULAR HEMOGLOBIN (BEAKER) (test 29.5 pg 25.7-32.2 xdcg=870) MEAN CORPUSCULAR HEMOGLOBIN CONC (BEAKER) (test 30.6 GM/DL 32.3-36.5 pjps=439) RED CELL DISTRIBUTION WIDTH (BEAKER) (test 17.5 % 11.6-14.4 exac=627) PLATELET COUNT (BEAKER) (test xnbt=103) 112 K/CU MM 150-450 MEAN PLATELET VOLUME (BEAKER) (test lttf=749) 10.9 fL 9.4-12.4 NUCLEATED RED BLOOD CELLS (BEAKER) (test 0 /100 WBC 0-0 pxay=648) NEUTROPHILS RELATIVE PERCENT (BEAKER) (test 66 % ietl=180) LYMPHOCYTES RELATIVE PERCENT (BEAKER) (test 22 % jfvz=444) MONOCYTES RELATIVE PERCENT (BEAKER) (test 8 % ugsr=123) EOSINOPHILS RELATIVE PERCENT (BEAKER) (test 2 % qlbo=743) BASOPHILS RELATIVE PERCENT (BEAKER) (test 2 % qgwt=565) NEUTROPHILS ABSOLUTE COUNT (BEAKER) (test 2.61 K/ L 1.78-5.38 yeod=182) LYMPHOCYTES ABSOLUTE COUNT (BEAKER) (test 0.88 K/ L 1.32-3.57 jolj=316) MONOCYTES ABSOLUTE COUNT (BEAKER) (test 0.31 K/ L 0.30-0.82 vnsh=192) EOSINOPHILS ABSOLUTE COUNT (BEAKER) (test 0.07 K/ L 0.04-0.54 npkz=909) BASOPHILS ABSOLUTE COUNT (BEAKER) (test 0.08 K/ L 0.01-0.08 khru=475) IMMATURE GRANULOCYTES-RELATIVE PERCENT (BEAKER) 0 % 0-1 (test sfxa=0482) CBC W/PLT COUNT & AUTO [id number] 17:18:00 Test Item Value Reference Range Comments WHITE BLOOD CELL COUNT (BEAKER) (test rosq=915) 4.0 K/ L 3.5-10.5 RED BLOOD CELL COUNT (BEAKER) (test qysw=004) 3.00 M/ L 4.63-6.08 HEMOGLOBIN (BEAKER) (test arbd=205) 9.0 GM/DL 13.7-17.5 HEMATOCRIT (BEAKER) (test evet=619) 29.3 % 40.1-51.0 MEAN CORPUSCULAR VOLUME (BEAKER) (test lvhq=686) 97.7 fL 79.0-92.2 MEAN CORPUSCULAR HEMOGLOBIN (BEAKER) (test 30.0 pg 25.7-32.2 orzi=990) MEAN CORPUSCULAR HEMOGLOBIN CONC (BEAKER) (test 30.7 GM/DL 32.3-36.5 uijb=541) RED CELL DISTRIBUTION WIDTH (BEAKER) (test 17.5 % 11.6-14.4 derr=130) PLATELET COUNT (BEAKER) (test kovv=772) 113 K/CU MM 150-450 MEAN PLATELET VOLUME (BEAKER) (test ubrk=096) 11.3 fL 9.4-12.4 NUCLEATED RED BLOOD CELLS (BEAKER) (test 0 /100 WBC 0-0 lpfl=022) NEUTROPHILS RELATIVE PERCENT (BEAKER) (test 68 % koga=591) LYMPHOCYTES RELATIVE PERCENT (BEAKER) (test 21 % fxiy=460) MONOCYTES RELATIVE PERCENT (BEAKER) (test 7 % xgaw=696) EOSINOPHILS RELATIVE PERCENT (BEAKER) (test 2 % xtpa=121) BASOPHILS RELATIVE PERCENT (BEAKER) (test 2 % hini=689) NEUTROPHILS ABSOLUTE COUNT (BEAKER) (test 2.76 K/ L 1.78-5.38 nqea=266) LYMPHOCYTES ABSOLUTE COUNT (BEAKER) (test 0.83 K/ L 1.32-3.57 gbgu=820) MONOCYTES ABSOLUTE COUNT (BEAKER) (test 0.29 K/ L 0.30-0.82 bogs=587) EOSINOPHILS ABSOLUTE COUNT (BEAKER) (test 0.07 K/ L 0.04-0.54 kjhr=940) BASOPHILS ABSOLUTE COUNT (BEAKER) (test 0.06 K/ L 0.01-0.08 rjxv=649) IMMATURE GRANULOCYTES-RELATIVE PERCENT (BEAKER) 1 % 0-1 (test txzq=5337) BODY FLUID CULTURE + GRAM [id number] 14:13:00 Test Item Value Reference Range Comments CULTURE (BEAKER) (test cjxa=4514) No growth GRAM STAIN RESULT (BEAKER) (test 1+ WBCs htfo=3618) GRAM STAIN RESULT (BEAKER) (test No organisms seen lbzk=37635) LACTATE DEHYDROGENASE (LDH), BODY [id number] 19:19:00 Test Item Value Reference Range Comments LACTATE DEHYDROGENASE FLUID (BEAKER) (test xzok=389) < U/L Absence of reference range indicates that normals have not been defined.Assay performance has not been validated for this type of specimen.U/S, [id number] 18:38:00Referring: Dr. Yary Olivas to be ordered:-& gt;Body Fluid Culture (w/Gram Stain, C\\T\\S)Reason for exam:->ABDOMINAL PAINFINAL REPORT Ultrasound guided paracentesis Clinical History: Ascites. Sedation: None. Fire Alarm Repairer: Aure Huerta PA-C Supervising Physician: Torey Etienne MD [employer] Math Teacher: None. Estimated Blood Loss: < 1 mL. Specimen: 2700 mL of clear yellow fluid, samples sent to laboratory. Technique: Informed consent was obtained. The risks of pain, bleeding, infection, bowel perforation, injury to adjacent structures, and adverse medication reactions were discussed with the patient. After informed consent was obtained, the patient's abdomen was scanned. The right lower quadrant of the abdomen was selected for paracentesis. After the largest fluid pocket area was marked, and the anterior abdominal wall was evaluated with color Doppler to exclude presenceof blood vessels traversing the area, the skin was prepped and draped in the usual sterile manner. After local anesthesia was achieved with lidocaine, a 5 Italian one-step catheter was advanced into the peritoneal cavity under ultrasound guidance. After completion of drainage, the catheter was removed. There was no evidence of complication. This procedure was performed by PRIYANKA Ramírez under direct supervision of Torey Etienne M.D. Impression:Successful ultrasound guided paracentesis. Signed:Torey Etienne MDReport Verified Date/Time: 05/01/2019 18:38:36 Reading Location: [address] Ultrasound Reading Room U/S, [id number] 18:05:00Referring: Dr. Yary Olivas to be ordered:->Body Fluid Culture (w/Gram Stain, C\\T\\S) Labs to be ordered:->Glucose+LDH+ProteinReason for exam:->ABD SWELLINGShould this be performed at the bedside?->YesFINAL REPORT Ultrasound guided paracentesis, 05/01/2019. Clinical History: Ascites. Sedation: None. Fire Alarm Repairer: Lola. Middle School Math Teacher: None. Estimated Blood Loss: < 1 cc. Specimen: 800 cc of clear yellow fluid , samples sent to laboratory. Technique: Informed consent was obtained. The risks of pain, bleeding, infection, bowel perforation, injury to adjacent structures, and adverse medication reactions were discussed with the patient. After informed consent was obtained, the patient's abdomen was scanned. The right lower quadrant of the abdomen was selected for paracentesis. After the largest fluid pocket area was marked, and the anterior abdominalwall was evaluated with color Doppler to exclude presence of blood vessels traversing the area, the skin was prepped and draped in the usual sterile manner. After local anesthesia was achieved with 1%lidocaine, a 5 Italian one-step catheter was advanced into the peritoneal cavity under ultrasound guidance. After completion of drainage, the catheter was removed. There was no evidence of complication.Patient Disposition: The patient was discharged from the ultrasound department after the paracentesis, in good condition. Impression: Successful ultrasound guided paracentesis. Signed: Anton Davila MDRthe [facility] of living Verified Date/Time: 05/01/2019 18:05:44 Reading Location: [place] [id number] Angio Body Reading Room Electronically signed by: ANTON DAVILA M.D. on 2018 06:05 PMBODY FLUID CELL COUNT WITH [id number] 17:23:00 Test Item Value Reference Range Comments APPEARANCE FLUID (BEAKER) (test jiim=106) Slightly Cloudy Clear COLOR FLUID (BEAKER) (test fvbv=273) Straw Colorless, Straw RBC FLUID (BEAKER) (test etfz=431) 370 /cu mm <=1 ADJUSTED WBC FLUID (BEAKER) (test 624 /cu mm <=5 ujyx=2328) LINING CELLS (BEAKER) (test yyeu=2662) 6 /cu mm <=1 NEUTROPHILS FLUID (BEAKER) (test sbju=3199) 8 % LYMPHS FLUID (BEAKER) (test iwwv=563) 44 % MONO/MACROPHAGE FLUID (BEAKER) (test 47 % cbcd=688) EOSINOPHILS FLUID (BEAKER) (test bznp=376) 0 % BASO FLUID (BEAKER) (test ljgx=431) 1 % CONTAINER BODY FLUID (BEAKER) (test EDTA Tube eist=7654) ALBUMIN, BODY [id number] 17:17:00 Test Item Value Reference Range Comments ALBUMIN FLUID (BEAKER) (test lqma=203) 0.5 gm/dL Reference Range: No Normals Assay performance has not been validated for this type of specimen.PROTEIN, BODY [id number] 17:16:00 Test Item Value Reference Range Comments PROTEIN FLUID (BEAKER) (test kgrm=618) 0.8 g/dL Absence of reference range indicates that normals have not been defined.Assay performance has not been validated for this type of specimen.GLUCOSE, BODY [id number] 17:07:00 Test Item Value Reference Range Comments GLUCOSE, BODY FLUID (BEAKER) (test tznc=9620) 94 mg/dL Absence of reference range indicates that normals have not been defined.Assay performance has not been validated for this type of specimen.TACROLIMUS [id number] 16:10:00 Test Item Value Reference Range Comments TACROLIMUS BLOOD (BEAKER) (test yeje=286) 7.4 ng/mL 10.0-20.0 COMPREHENSIVE METABOLIC [id number] 15:01:00 Test Item Value Reference Range Comments TOTAL PROTEIN (BEAKER) 5.3 gm/dL 6.0-8.3 (test duvp=060) ALBUMIN (BEAKER) (test 3.2 g/dL 3.5-5.0 butp=0273) ALKALINE PHOSPHATASE 373 U/L 40-150 (BEAKER) (test cyjm=715) BILIRUBIN TOTAL (BEAKER) 1.0 mg/dL 0.2-1.2 (test lcxx=716) SODIUM (BEAKER) (test 139 meq/L 136-145 psdm=451) POTASSIUM (BEAKER) (test 4.5 meq/L 3.5-5.1 sbqp=945) CHLORIDE (BEAKER) (test 111 meq/L 98-107 ejpt=359) CO2 (BEAKER) (test 23 meq/L 22-29 aayp=764) BLOOD UREA NITROGEN 27 mg/dL 7-21 (BEAKER) (test veyf=686) CREATININE (BEAKER) (test 1.41 mg/dL 0.57-1.25 nxdk=564) GLUCOSE RANDOM (BEAKER) 84 mg/dL 70-105 (test suay=953) CALCIUM (BEAKER) (test 7.8 mg/dL 8.4-10.2 bojf=713) AST (SGOT) (BEAKER) (test 54 U/L 5-34 jthi=778) ALT (SGPT) (BEAKER) (test 40 U/L 6-55 cwyo=224) EGFR (BEAKER) (test 51 mL/min/1.73 sq m ESTIMATED GFR IS NOT asto=8594) ACCURATE CREATININE CLEARANCE IN PREDICTING GLOMERULAR FILTRATION RATE. ESTIMATED GFR IS NOT APPLICABLE FOR DIALYSIS PATIENTS. [id number] 14:57:00 Test Item Value Reference Range Comments MAGNESIUM (BEAKER) (test uwef=496) 1.8 mg/dL 1.6-2.6 [id number] 14:57:00 Test Item Value Reference Range Comments PROTIME (BEAKER) (test gvit=107) 15.1 seconds 11.9-14.2 INR (BEAKER) (test wlbq=764) 1.2 <=5.9 PARTIAL THROMBOPLASTIN TIME (BEAKER) (test 32.8 seconds 22.5-36.0 yjmo=742) Effective 11/26/2018: PT Reference Range ChangeNew: 11.9-14.2 Previous: 11.7- 14.7RECOMMENDED COUMADIN/WARFARIN INR THERAPY RANGESSTANDARD DOSE: 2.0-3.0 Includes: PROPHYLAXIS for venous thrombosis, systemic embolization; TREATMENT for venous thrombosis and/or pulmonary embolus.HIGH RISK: Target INR is2.5-3.5 for patients wiht mechanical heart valves.RAD, CHEST, 1 VIEW, NON [id number] 14:53:00Referring: Dr. Yary Fernando for exam:->chest painShould this be performed at the bedside?->YesFINAL REPORT TECHNIQUE: Frontal chest radiograph dated 05/01/2019. CLINICAL HISTORY: Chest pain COMPARISON STUDY: Chest radiograph dated 04/22/2019 IMPRESSION:Blunting along the costophrenic angles is due to either scarring and/or trace effusion. No pneumothorax. Cardiomediastinal silhouette is normal in size. No pulmonary edema. No fracture. Midline sternotomy wires are intactand well aligned. Signed : Micheal Crenshaw MDReport Verified Date/Time: 05/01/2019 14:53:51 Reading Location: [facility] Reading Room CBC W/PLT COUNT & AUTO [id number] 14:42:00 Test Item Value Reference Range Comments WHITE BLOOD CELL COUNT (BEAKER) (test lwud=279) 3.8 K/ L 3.5-10.5 RED BLOOD CELL COUNT (BEAKER) (test oonw=444) 3.17 M/ L 4.63-6.08 HEMOGLOBIN (BEAKER) (test gyko=694) 9.5 GM/DL 13.7-17.5 HEMATOCRIT (BEAKER) (test aqaz=054) 30.8 % 40.1-51.0 MEAN CORPUSCULAR VOLUME (BEAKER) (test cnff=633) 97.2 fL 79.0-92.2 MEAN CORPUSCULAR HEMOGLOBIN (BEAKER) (test 30.0 pg 25.7-32.2 msoz=901) MEAN CORPUSCULAR HEMOGLOBIN CONC (BEAKER) (test 30.8 GM/DL 32.3-36.5 tjlo=110) RED CELL DISTRIBUTION WIDTH (BEAKER) (test 17.2 % 11.6-14.4 hmss=096) PLATELET COUNT (BEAKER) (test swlz=497) 66 K/CU MM 150-450 MEAN PLATELET VOLUME (BEAKER) (test wvtq=659) 12.4 fL 9.4-12.4 NUCLEATED RED BLOOD CELLS (BEAKER) (test 0 /100 WBC 0-0 slof=416) NEUTROPHILS RELATIVE PERCENT (BEAKER) (test 73 % dxht=219) LYMPHOCYTES RELATIVE PERCENT (BEAKER) (test 18 % wpea=312) MONOCYTES RELATIVE PERCENT (BEAKER) (test 5 % smlg=316) EOSINOPHILS RELATIVE PERCENT (BEAKER) (test 2 % ocbb=566) BASOPHILS RELATIVE PERCENT (BEAKER) (test 1 % wczo=911) NEUTROPHILS ABSOLUTE COUNT (BEAKER) (test 2.76 K/ L 1.78-5.38 pash=521) LYMPHOCYTES ABSOLUTE COUNT (BEAKER) (test 0.68 K/ L 1.32-3.57 kwuy=904) MONOCYTES ABSOLUTE COUNT (BEAKER) (test ewxw=746) 0.20 K/ L 0.30-0.82 EOSINOPHILS ABSOLUTE COUNT (BEAKER) (test 0.09 K/ L 0.04-0.54 fzxc=197) BASOPHILS ABSOLUTE COUNT (BEAKER) (test grdf=451) 0.02 K/ L 0.01-0.08 IMMATURE GRANULOCYTES-RELATIVE PERCENT (BEAKER) 1 % 0-1 (test ykcu=5648) BODY FLUID CULTURE + GRAM [id number] 11:52:00 Test Item Value Reference Range Comments CULTURE (BEAKER) (test bpew=9623) No growth GRAM STAIN RESULT (BEAKER) (test <1+ White blood cells seen hmfm=3899) GRAM STAIN RESULT (BEAKER) (test No organisms seen iwzz=75452) BODY FLUID CELL COUNT WITH [id number] 18:29:00 Test Item Value Reference Range Comments APPEARANCE FLUID (BEAKER) (test npmc=395) Slightly Hazy Clear COLOR FLUID (BEAKER) (test czut=262) Yellow Colorless, Straw RBC FLUID (BEAKER) (test owti=656) 403 /cu mm <=1 ADJUSTED WBC FLUID (BEAKER) (test hsdj=4299) 650 /cu mm <=5 LINING CELLS (BEAKER) (test wfgf=1396) 6 /cu mm <=1 NEUTROPHILS FLUID (BEAKER) (test zzlj=3894) 44 % LYMPHS FLUID (BEAKER) (test rqhm=648) 32 % MONO/MACROPHAGE FLUID (BEAKER) (test 23 % gfnz=714) EOSINOPHILS FLUID (BEAKER) (test fjok=423) 0 % BASO FLUID (BEAKER) (test qlif=827) 1 % CONTAINER BODY FLUID (BEAKER) (test EDTA Tube wuuu=6789) CBC W/PLT COUNT & AUTO [id number] 14:08:00 Test Item Value Reference Range Comments WHITE BLOOD CELL COUNT (BEAKER) (test szzw=430) 4.0 K/ L 3.5-10.5 RED BLOOD CELL COUNT (BEAKER) (test txjx=881) 3.09 M/ L 4.63-6.08 HEMOGLOBIN (BEAKER) (test blqo=063) 9.1 GM/DL 13.7-17.5 HEMATOCRIT (BEAKER) (test gyzu=953) 29.3 % 40.1-51.0 MEAN CORPUSCULAR VOLUME (BEAKER) (test ztac=477) 94.8 fL 79.0-92.2 MEAN CORPUSCULAR HEMOGLOBIN (BEAKER) (test 29.4 pg 25.7-32.2 pbud=750) MEAN CORPUSCULAR HEMOGLOBIN CONC (BEAKER) (test 31.1 GM/DL 32.3-36.5 eaye=823) RED CELL DISTRIBUTION WIDTH (BEAKER) (test 17.0 % 11.6-14.4 ukby=939) PLATELET COUNT (BEAKER) (test hujp=573) 41 K/CU MM 150-450 MEAN PLATELET VOLUME (BEAKER) (test fivg=026) 10.1 fL 9.4-12.4 NUCLEATED RED BLOOD CELLS (BEAKER) (test 1 /100 WBC 0-0 epvj=846) (CELLAVISION MANUAL DIFF)[id number] 14:08:00 Test Item Value Reference Range Comments NEUTROPHILS - REL (CELLAVISION)(BEAKER) (test 70 % zgtb=7240) LYMPHOCYTES - REL (CELLAVISION)(BEAKER) (test 13 % tkow=3019) MONOCYTES - REL (CELLAVISION)(BEAKER) (test 9 % efkc=6749) EOSINOPHILS - REL (CELLAVISION)(BEAKER) (test 2 % eyky=2603) METAMYELOCYTES - REL (CELLAVISION)(BEAKER) (test 3 % 0-0 xnyd=0384) MYELOCYTES - REL (CELLAVISION)(BEAKER) (test 3 % 0-0 tgjp=4325) NEUTROPHILS - ABS (CELLAVISION)(BEAKER) (test 2.80 K/ul 1.78-5.38 pmsq=1941) LYMPHOCYTES - ABS (CELLAVISION)(BEAKER) (test 0.52 K/ul 1.32-3.57 fqvo=5656) MONOCYTES - ABS (CELLAVISION)(BEAKER) (test 0.36 K/uL 0.30-0.82 wpkj=6587) EOSINOPHILS - ABS (CELLAVISION)(BEAKER) (test 0.08 K/uL 0.04-0.54 ooum=2343) METAMYELOCYTES - ABS (CELLAVISION)(BEAKER) (test 0.12 K/uL 0.00-0.00 brly=6932) MYELOCYTES-ABS (CELLAVISION)(BEAKER) (test 0.12 K/uL 0.00-0.00 wgcb=3857) TOTAL COUNTED (BEAKER) (test zrht=5205) 100 WBC MORPHOLOGY (BEAKER) (test tlqk=496) Normal PLT MORPHOLOGY (BEAKER) (test kujs=577) Normal ANISOCYTOSIS (BEAKER) (test ojfp=589) 1+ few MICROCYTES (BEAKER) (test wspi=276) 1+ few POIKILOCYTES (BEAKER) (test mgjg=915) 2+ moderate ELLIPTOCYTES (BEAKER) (test ltpb=260) 2+ moderate ACANTHOCYTES (BEAKER) (test blhp=378) 1+ few ARTIFACT (CELLAVISION)(BEAKER) (test iifd=3337) Present PLATELET CONCENTRATION (CELLAVISION)(BEAKER) Decreased (test wepn=9678) Received comment: User comments: Slide comments:[id number] 12:58:00 Test Item Value Reference Range Comments LIPASE (BEAKER) (test yivg=246) 153 U/L 8-78 BASIC METABOLIC [id number] 12:58:00 Test Item Value Reference Range Comments SODIUM (BEAKER) (test 142 meq/L 136-145 mwnd=309) POTASSIUM (BEAKER) (test 4.1 meq/L 3.5-5.1 cgkc=499) CHLORIDE (BEAKER) (test 110 meq/L 98-107 btgp=137) CO2 (BEAKER) (test 23 meq/L 22-29 iupb=442) BLOOD UREA NITROGEN 54 mg/dL 7-21 (BEAKER) (test fxmb=454) CREATININE (BEAKER) (test 1.75 mg/dL 0.57-1.25 ckgo=392) GLUCOSE RANDOM (BEAKER) 101 mg/dL 70-105 (test pmua=081) CALCIUM (BEAKER) (test 8.3 mg/dL 8.4-10.2 kskp=960) EGFR (BEAKER) (test 40 mL/min/1.73 sq m ESTIMATED GFR IS NOT zrsc=3811) ACCURATE CREATININE CLEARANCE IN PREDICTING GLOMERULAR FILTRATION RATE. ESTIMATED GFR IS NOT APPLICABLE FOR DIALYSIS PATIENTS. HEPATIC FUNCTION [id number] 12:58:00 Test Item Value Reference Range Comments TOTAL PROTEIN (BEAKER) (test gnnt=331) 4.9 gm/dL 6.0-8.3 ALBUMIN (BEAKER) (test sqoa=6818) 2.9 g/dL 3.5-5.0 BILIRUBIN TOTAL (BEAKER) (test hgwo=474) 1.1 mg/dL 0.2-1.2 BILIRUBIN DIRECT (BEAKER) (test bahe=903) 0.6 mg/dL 0.1-0.5 ALKALINE PHOSPHATASE (BEAKER) (test mobi=135) 304 U/L 40-150 AST (SGOT) (BEAKER) (test xvse=093) 44 U/L 5-34 ALT (SGPT) (BEAKER) (test vskd=652) 37 U/L 6-55 [id number] 12:49:00 Test Item Value Reference Range Comments PROTIME (BEAKER) (test lyjo=407) 16.0 seconds 11.9-14.2 INR (BEAKER) (test ivlb=159) 1.4 <=5.9 PARTIAL THROMBOPLASTIN TIME (BEAKER) (test 36.7 seconds 22.5-36.0 jvor=024) Effective 11/26/2018: PT Reference Range ChangeNew: 11.9-14.2 Previous: 11.7- 14.7RECOMMENDED COUMADIN/WARFARIN INR THERAPY RANGESSTANDARD DOSE: 2.0-3.0 Includes: PROPHYLAXIS for venous thrombosis, systemic embolization; TREATMENT for venous thrombosis and/or pulmonary embolus.HIGH RISK: Target INR is2.5-3.5 for patients wiht mechanical heart valves.BLOOD [id number] 12:00:00 Test Item Value Reference Range Comments CULTURE (BEAKER) (test vqwg=4479) No growth in 5 days BLOOD [id number] 12:00:00 Test Item Value Reference Range Comments CULTURE (BEAKER) (test bdkj=6242) No growth in 5 days STOOL CULTURE + SHIGA [id number] 15:15:00 Test Item Value Reference Range Comments CULTURE (BEAKER) (test No Salmonella, Shigella or mnup=4165) Campylobacter isolated TACROLIMUS [id number] 09:27:00 Test Item Value Reference Range Comments TACROLIMUS BLOOD (BEAKER) (test xrtp=379) 9.5 ng/mL 10.0-20.0 CBC W/PLT COUNT & AUTO [id number] 08:36:00 Test Item Value Reference Range Comments WHITE BLOOD CELL COUNT (BEAKER) (test syju=212) 4.8 K/ L 3.5-10.5 RED BLOOD CELL COUNT (BEAKER) (test rtsb=032) 3.13 M/ L 4.63-6.08 HEMOGLOBIN (BEAKER) (test ikjg=299) 9.3 GM/DL 13.7-17.5 HEMATOCRIT (BEAKER) (test neum=102) 30.9 % 40.1-51.0 MEAN CORPUSCULAR VOLUME (BEAKER) (test gecy=492) 98.7 fL 79.0-92.2 MEAN CORPUSCULAR HEMOGLOBIN (BEAKER) (test 29.7 pg 25.7-32.2 kcqy=663) MEAN CORPUSCULAR HEMOGLOBIN CONC (BEAKER) (test 30.1 GM/DL 32.3-36.5 bhkl=978) RED CELL DISTRIBUTION WIDTH (BEAKER) (test 16.8 % 11.6-14.4 eqvm=521) PLATELET COUNT (BEAKER) (test qbcb=245) 43 K/CU MM 150-450 MEAN PLATELET VOLUME (BEAKER) (test sbkf=404) 13.0 fL 9.4-12.4 NUCLEATED RED BLOOD CELLS (BEAKER) (test 1 /100 WBC 0-0 suan=334) (CELLAVISION MANUAL DIFF)[id number] 08:36:00 Test Item Value Reference Range Comments NEUTROPHILS - REL (CELLAVISION)(BEAKER) (test 69 % gyyh=1474) LYMPHOCYTES - REL (CELLAVISION)(BEAKER) (test 15 % cnkr=8527) MONOCYTES - REL (CELLAVISION)(BEAKER) (test 3 % oaub=0070) EOSINOPHILS - REL (CELLAVISION)(BEAKER) (test 1 % jtvs=4199) BASOPHILS - REL (CELLAVISION)(BEAKER) (test 1 % rkty=2508) BANDS - REL (CELLAVISION)(BEAKER) (test 11 % 0-10 aqqa=4089) NEUTROPHILS - ABS (CELLAVISION)(BEAKER) (test 3.31 K/ul 1.78-5.38 fpes=4385) LYMPHOCYTES - ABS (CELLAVISION)(BEAKER) (test 0.72 K/ul 1.32-3.57 joxz=2699) MONOCYTES - ABS (CELLAVISION)(BEAKER) (test 0.14 K/uL 0.30-0.82 icon=7350) EOSINOPHILS - ABS (CELLAVISION)(BEAKER) (test 0.05 K/uL 0.04-0.54 nnnl=4770) BASOPHILS - ABS (CELLAVISION)(BEAKER) (test 0.05 K/uL 0.01-0.08 vxzf=6165) BANDS - ABS (CELLAVISION)(BEAKER) (test 0.53 K/uL 0.00-0.80 rraz=6590) TOTAL COUNTED (BEAKER) (test ibmm=7735) 100 MANUAL NRBC PER 100 CELLS (BEAKER) (test 4 /100 WBC 0-0 mdxv=1690) WBC MORPHOLOGY (BEAKER) (test pwmm=042) Normal PLT MORPHOLOGY (BEAKER) (test ctzm=490) Normal POLYCHROMATOPHILLIC RBCS(BEAKER) (test kojy=207) 1+ few ANISOCYTOSIS (BEAKER) (test ceup=154) 1+ few MACROCYTES (BEAKER) (test bikl=689) 1+ few POIKILOCYTES (BEAKER) (test kfqt=995) 3+ many ELLIPTOCYTES (BEAKER) (test bvhz=163) 2+ moderate MICKEY CELLS (BEAKER) (test pqnf=763) 2+ moderate ARTIFACT (CELLAVISION)(BEAKER) (test rhlz=7698) Present PLATELET CONCENTRATION (CELLAVISION)(BEAKER) Decreased (test fnoz=1103) Received comment: User comments: Slide comments:[id number] 07:02:00 Test Item Value Reference Range Comments PHOSPHORUS (BEAKER) (test hakj=357) 2.7 mg/dL 2.3-4.7 [id number] 07:02:00 Test Item Value Reference Range Comments MAGNESIUM (BEAKER) (test aowu=564) 1.7 mg/dL 1.6-2.6 BASIC METABOLIC [id number] 07:02:00 Test Item Value Reference Range Comments SODIUM (BEAKER) (test 138 meq/L 136-145 gpml=653) POTASSIUM (BEAKER) (test 4.3 meq/L 3.5-5.1 sylc=335) CHLORIDE (BEAKER) (test 106 meq/L 98-107 wpyd=450) CO2 (BEAKER) (test 22 meq/L 22-29 cgbg=342) BLOOD UREA NITROGEN 51 mg/dL 7-21 (BEAKER) (test nazb=747) CREATININE (BEAKER) (test 2.07 mg/dL 0.57-1.25 yewf=498) GLUCOSE RANDOM (BEAKER) 216 mg/dL 70-105 (test hdgn=976) CALCIUM (BEAKER) (test 8.5 mg/dL 8.4-10.2 cnwn=897) EGFR (BEAKER) (test 33 mL/min/1.73 sq m ESTIMATED GFR IS NOT rhgp=1064) ACCURATE CREATININE CLEARANCE IN PREDICTING GLOMERULAR FILTRATION RATE. ESTIMATED GFR IS NOT APPLICABLE FOR DIALYSIS PATIENTS. HEPATIC FUNCTION [id number] 07:02:00 Test Item Value Reference Range Comments TOTAL PROTEIN (BEAKER) (test nugq=661) 5.4 gm/dL 6.0-8.3 ALBUMIN (BEAKER) (test ukfi=1891) 3.1 g/dL 3.5-5.0 BILIRUBIN TOTAL (BEAKER) (test ofic=982) 1.2 mg/dL 0.2-1.2 BILIRUBIN DIRECT (BEAKER) (test uelx=567) 0.7 mg/dL 0.1-0.5 ALKALINE PHOSPHATASE (BEAKER) (test lrns=931) 306 U/L 40-150 AST (SGOT) (BEAKER) (test cfdz=468) 32 U/L 5-34 ALT (SGPT) (BEAKER) (test nddu=671) 29 U/L 6-55 CALCIUM, [id number] 06:41:00 Test Item Value Reference Range Comments CALCIUM IONIZED (BEAKER) (test skie=260) 1.10 mmol/L 1.12-1.27 PH, BLOOD (BEAKER) (test tfon=0907) 7.41 SHIGA TOXIN [id number] 13:55:00 Test Item Value Reference Range Comments SHIGA TOXIN 1 (BEAKER) (test ujxp=8087) Not detected Not detected SHIGA TOXIN 2 (BEAKER) (test paii=9920) Not detected Not detected CBC W/PLT COUNT & AUTO [id number] 13:00:00 Test Item Value Reference Range Comments WHITE BLOOD CELL COUNT (BEAKER) (test xoqs=816) 2.3 K/ L 3.5-10.5 RED BLOOD CELL COUNT (BEAKER) (test nziu=374) 2.70 M/ L 4.63-6.08 HEMOGLOBIN (BEAKER) (test yghf=622) 8.0 GM/DL 13.7-17.5 HEMATOCRIT (BEAKER) (test mcbm=494) 25.7 % 40.1-51.0 MEAN CORPUSCULAR VOLUME (BEAKER) (test apwf=849) 95.2 fL 79.0-92.2 MEAN CORPUSCULAR HEMOGLOBIN (BEAKER) (test 29.6 pg 25.7-32.2 ystd=081) MEAN CORPUSCULAR HEMOGLOBIN CONC (BEAKER) (test 31.1 GM/DL 32.3-36.5 qkuj=765) RED CELL DISTRIBUTION WIDTH (BEAKER) (test 17.1 % 11.6-14.4 jiyx=236) PLATELET COUNT (BEAKER) (test amck=660) 36 K/CU MM 150-450 MEAN PLATELET VOLUME (BEAKER) (test vcje=688) 12.0 fL 9.4-12.4 NUCLEATED RED BLOOD CELLS (BEAKER) (test 0 /100 WBC 0-0 hbsy=828) (CELLAVISION MANUAL DIFF)2019-04-24 13:00:00 Test Item Value Reference Range Comments NEUTROPHILS - REL (CELLAVISION)(BEAKER) (test 68 % pkbj=6569) LYMPHOCYTES - REL (CELLAVISION)(BEAKER) (test 12 % gvxv=8371) MONOCYTES - REL (CELLAVISION)(BEAKER) (test 14 % jxhf=0671) EOSINOPHILS - REL (CELLAVISION)(BEAKER) (test 3 % kjyt=7276) METAMYELOCYTES - REL (CELLAVISION)(BEAKER) (test 2 % 0-0 zncf=9277) BANDS - REL (CELLAVISION)(BEAKER) (test dwrw=1089) 1 % 0-10 NEUTROPHILS - ABS (CELLAVISION)(BEAKER) (test 1.56 K/ul 1.78-5.38 cpwd=8488) LYMPHOCYTES - ABS (CELLAVISION)(BEAKER) (test 0.28 K/ul 1.32-3.57 itnb=7114) MONOCYTES - ABS (CELLAVISION)(BEAKER) (test 0.32 K/uL 0.30-0.82 jgxn=7486) EOSINOPHILS - ABS (CELLAVISION)(BEAKER) (test 0.07 K/uL 0.04-0.54 ntfg=2917) METAMYELOCYTES - ABS (CELLAVISION)(BEAKER) (test 0.05 K/uL 0.00-0.00 qvwq=3206) BANDS - ABS (CELLAVISION)(BEAKER) (test zahs=3801) 0.02 K/uL 0.00-0.80 TOTAL COUNTED (BEAKER) (test bkhh=8851) 100 WBC MORPHOLOGY (BEAKER) (test axkq=204) Normal PLT MORPHOLOGY (BEAKER) (test eyfg=062) Normal POLYCHROMATOPHILLIC RBCS(BEAKER) (test cgnt=251) 1+ few HYPOCHROMIA (BEAKER) (test hzjd=571) 1+ few ANISOCYTOSIS (BEAKER) (test rtet=746) 1+ few MACROCYTES (BEAKER) (test dust=810) 1+ few POIKILOCYTES (BEAKER) (test axep=143) 1+ few SCHISTOCYTES (BEAKER) (test doim=492) 1+ few ELLIPTOCYTES (BEAKER) (test jhtq=362) 1+ few OVALOCYTES (BEAKER) (test rwdj=306) 1+ few TEAR DROP CELLS (BEAKER) (test czai=078) 1+ few Wbc differential done manuallyTACROLIMUS [id number] 10:40:00 Test Item Value Reference Range Comments TACROLIMUS BLOOD (BEAKER) (test dlkp=399) 3.0 ng/mL 10.0-20.0 STOOL PATH [id number] 10:16:00 Test Item Value Reference Range Comments PATHOGEN EXAM CHARGED (BEAKER) (test ynjy=0409) Done CALCIUM, [id number] 07:43:00 Test Item Value Reference Range Comments CALCIUM IONIZED (BEAKER) (test ohwt=291) 1.14 mmol/L 1.12-1.27 PH, BLOOD (BEAKER) (test hlli=0591) 7.42 [id number] 06:35:00 Test Item Value Reference Range Comments PHOSPHORUS (BEAKER) (test qkis=618) 2.4 mg/dL 2.3-4.7 [id number] 06:35:00 Test Item Value Reference Range Comments MAGNESIUM (BEAKER) (test ehat=769) 1.6 mg/dL 1.6-2.6 BASIC METABOLIC [id number] 06:35:00 Test Item Value Reference Range Comments SODIUM (BEAKER) (test 141 meq/L 136-145 dezu=051) POTASSIUM (BEAKER) (test 3.4 meq/L 3.5-5.1 lvbx=980) CHLORIDE (BEAKER) (test 109 meq/L 98-107 zopw=701) CO2 (BEAKER) (test 24 meq/L 22-29 muuz=926) BLOOD UREA NITROGEN 45 mg/dL 7-21 (BEAKER) (test oijn=356) CREATININE (BEAKER) (test 1.74 mg/dL 0.57-1.25 vtmc=610) GLUCOSE RANDOM (BEAKER) 86 mg/dL 70-105 (test eocd=798) CALCIUM (BEAKER) (test 8.6 mg/dL 8.4-10.2 dmtx=503) EGFR (BEAKER) (test 40 mL/min/1.73 sq m ESTIMATED GFR IS NOT yzzx=1703) ACCURATE CREATININE CLEARANCE IN PREDICTING GLOMERULAR FILTRATION RATE. ESTIMATED GFR IS NOT APPLICABLE FOR DIALYSIS PATIENTS. HEPATIC FUNCTION [id number] 06:35:00 Test Item Value Reference Range Comments TOTAL PROTEIN (BEAKER) (test hfoh=540) 4.6 gm/dL 6.0-8.3 ALBUMIN (BEAKER) (test uovw=6941) 2.9 g/dL 3.5-5.0 BILIRUBIN TOTAL (BEAKER) (test sraq=308) 1.3 mg/dL 0.2-1.2 BILIRUBIN DIRECT (BEAKER) (test ebpi=000) 0.8 mg/dL 0.1-0.5 ALKALINE PHOSPHATASE (BEAKER) (test avbx=179) 224 U/L 40-150 AST (SGOT) (BEAKER) (test tqqr=922) 36 U/L 5-34 ALT (SGPT) (BEAKER) (test qrmk=677) 30 U/L 6-55 RESPIRATORY PANEL [id number] 14:16:00 Test Item Value Reference Range Comments HUMAN METAPNEUMOVIRUS (BEAKER) (test Not detected Not detected, Equivocal xcji=5284) RHINOVIRUS (BEAKER) (test eelz=2095) Not detected Not detected, Equivocal INFLUENZA A (BEAKER) (test bipp=3406) Not detected Not detected, Equivocal INFLUENZA A (NO SUBTYPE) (test odmo=3682) INFLUENZA A SUBTYPE H1 (BEAKER) (test dbbr=5886) INFLUENZA A SUBTYPE H3 (BEAKER) (test rzuv=2138) INFLUENZA A SUBTYPE H1-2009 (BEAKER) (test pzfa=0019) INFLUENZA B (BEAKER) (test wrgy=4369) Not detected Not detected, Equivocal RESPIRATORY SYNCYTIAL VIRUS (BEAKER) Not detected Not detected, Equivocal (test tnro=0309) PARAINFLUENZA VIRUS 1 (BEAKER) (test Not detected Not detected, Equivocal ftbp=5720) PARAINFLUENZA VIRUS 2 (BEAKER) (test Not detected Not detected, Equivocal bgxu=6361) PARAINFLUENZA VIRUS 3 (BEAKER) (test Not detected Not detected, Equivocal hyux=0574) PARAINFLUENZA VIRUS 4 (BEAKER) (test Not detected Not detected, Equivocal wwmz=1416) ADENOVIRUS (BEAKER) (test uxjo=4468) Not detected Not detected, Equivocal CORONAVIRUS 229E (BEAKER) (test Not detected Not detected, Equivocal mqvu=7347) CORONAVIRUS HKU1 (BEAKER) (test Not detected Not detected, Equivocal vwho=6075) CORONAVIRUS NL63 (BEAKER) (test Not detected Not detected, Equivocal omhd=2222) CORONAVIRUS OC43 (BEAKER) (test Not detected Not detected, Equivocal fong=4185) BORDETELLA PERTUSSIS (BEAKER) (test Not detected Not detected, Equivocal ggni=3589) CHLAMYDOPHILA PNEUMONIAE (BEAKER) (test Not detected Not detected, Equivocal kwjl=5446) MYCOPLASMA PNEUMONIAE (BEAKER) (test Not detected Not detected, Equivocal hzmz=8638) Other viruses and bacteria not targeted by this PCR panel cannot be excluded; therefore clinical correlation and follow up of serology, culture results, and other molecular studies is required. The results are not intended to be used as the sole means for clinical diagnosis or patient management decisions. This sample was tested at the [facility] Molecular Diagnostics Laboratory using the CheggArray Respiratory Panel. It is FDA cleared and has been verified and approved by the [facility] Molecular Diagnostics Laboratory for clinical use on nasopharyngeal swab specimens.The performance of the FilmArrayRP has not been established in individuals who received influenza vaccine. Recent administration ofa nasal influenza vaccine may cause false positive results for Influenza A and/orInfluenza B.TACROLIMUS [id number] 11:08:00 Test Item Value Reference Range Comments TACROLIMUS BLOOD (BEAKER) (test vrih=675) 2.8 ng/mL 10.0-20.0 C. DIFFICILE GDH [id number] 10:53:00 Test Item Value Reference Range Comments CDT TOXIN (test Negative Negative phzl=[id number]) CDT GDH ANTIGEN (test Negative Negative No indication of Clostridium wpvx=[id number]) difficile infection and no colonization. Discontinue enteric isolation and therapy. Testing performed by [employer] Rapid Cassette Assay. For GDH, published sensitivity of the assay is 98.7% compared to cytotoxicity testing. For Toxin AB, published sensitivity is 87.8% and specificity 99.4% compared to cytotoxicity testing.Verification of kit performance was done by the [facility] Microbiology Lab prior to clinical use.BASIC METABOLIC [id number] 10:21:00 Test Item Value Reference Range Comments SODIUM (BEAKER) (test 139 meq/L 136-145 tdyg=647) POTASSIUM (BEAKER) (test 3.3 meq/L 3.5-5.1 kvys=440) CHLORIDE (BEAKER) (test 106 meq/L 98-107 wffu=849) CO2 (BEAKER) (test 22 meq/L 22-29 dfdo=984) BLOOD UREA NITROGEN 53 mg/dL 7-21 (BEAKER) (test jpjd=262) CREATININE (BEAKER) (test 2.05 mg/dL 0.57-1.25 ojdu=500) GLUCOSE RANDOM (BEAKER) 109 mg/dL 70-105 (test gdwe=609) CALCIUM (BEAKER) (test 8.4 mg/dL 8.4-10.2 cvik=979) EGFR (BEAKER) (test 33 mL/min/1.73 sq m ESTIMATED GFR IS NOT sqcg=7935) ACCURATE CREATININE CLEARANCE IN PREDICTING GLOMERULAR FILTRATION RATE. ESTIMATED GFR IS NOT APPLICABLE FOR DIALYSIS PATIENTS. PERIPHERAL BLOOD SMEAR - PATHOLOGIST [id number] 09:58:00 Test Item Value Reference Range Comments PERIPHERAL SMR REVIEW (BEAKER) Rare atypical lymphocytes, (test kmmo=6760) favore reactive. No circulating blasts. Clinical follow up recommended. [id number]-[id number] (BEAKER) Macario Walker (test ldci=6252) Ben(electronic signature) CBC W/PLT COUNT & AUTO [id number] 09:36:00 Test Item Value Reference Range Comments WHITE BLOOD CELL COUNT (BEAKER) (test abhk=566) 1.2 K/ L 3.5-10.5 RED BLOOD CELL COUNT (BEAKER) (test mima=546) 2.46 M/ L 4.63-6.08 HEMOGLOBIN (BEAKER) (test tufg=086) 7.3 GM/DL 13.7-17.5 HEMATOCRIT (BEAKER) (test qrez=605) 23.0 % 40.1-51.0 MEAN CORPUSCULAR VOLUME (BEAKER) (test qhjv=426) 93.5 fL 79.0-92.2 MEAN CORPUSCULAR HEMOGLOBIN (BEAKER) (test 29.7 pg 25.7-32.2 hehc=039) MEAN CORPUSCULAR HEMOGLOBIN CONC (BEAKER) (test 31.7 GM/DL 32.3-36.5 gfzj=113) RED CELL DISTRIBUTION WIDTH (BEAKER) (test 17.0 % 11.6-14.4 zrmt=520) PLATELET COUNT (BEAKER) (test jdft=149) 36 K/CU MM 150-450 MEAN PLATELET VOLUME (BEAKER) (test xsbn=366) 12.3 fL 9.4-12.4 NUCLEATED RED BLOOD CELLS (BEAKER) (test 0 /100 WBC 0-0 mjwh=573) (CELLAVISION MANUAL DIFF)2019-04-23 09:36:00 Test Item Value Reference Range Comments NEUTROPHILS - REL (CELLAVISION)(BEAKER) (test 64 % ivcz=9572) LYMPHOCYTES - REL (CELLAVISION)(BEAKER) (test 13 % bgfk=9052) MONOCYTES - REL (CELLAVISION)(BEAKER) (test 10 % swuw=1259) EOSINOPHILS - REL (CELLAVISION)(BEAKER) (test 4 % vtyx=5607) BANDS - REL (CELLAVISION)(BEAKER) (test pgdy=0908) 9 % 0-10 ATYPICAL LYMPHOCYTES - REL (CELLAVISION)(BEAKER) 1 % 0-0 (test wxmy=2824) NEUTROPHILS - ABS (CELLAVISION)(BEAKER) (test 0.77 K/ul 1.78-5.38 ekjd=4588) LYMPHOCYTES - ABS (CELLAVISION)(BEAKER) (test 0.16 K/ul 1.32-3.57 idek=2139) MONOCYTES - ABS (CELLAVISION)(BEAKER) (test 0.12 K/uL 0.30-0.82 ejie=4217) EOSINOPHILS - ABS (CELLAVISION)(BEAKER) (test 0.05 K/uL 0.04-0.54 heto=1448) BANDS - ABS (CELLAVISION)(BEAKER) (test hhhq=2868) 0.11 K/uL 0.00-0.80 ATYPICAL LYMPHOCYTES - ABS (CELLAVISION)(BEAKER) 0.01 K/uL 0.00-0.00 (test gbdy=1434) TOTAL COUNTED (BEAKER) (test gyzr=5828) 100 WBC MORPHOLOGY (BEAKER) (test pvoa=836) Normal PLT MORPHOLOGY (BEAKER) (test qzmc=239) Normal POLYCHROMATOPHILLIC RBCS(BEAKER) (test xbiu=078) 1+ few HYPOCHROMIA (BEAKER) (test pqhf=855) 1+ few SCHISTOCYTES (BEAKER) (test gijc=258) 1+ few OVALOCYTES (BEAKER) (test maoq=170) 1+ few TEAR DROP CELLS (BEAKER) (test gmol=264) 1+ few MICKEY CELLS (BEAKER) (test ohcr=234) 1+ few ARTIFACT (CELLAVISION)(BEAKER) (test ceaz=5966) Present PLATELET CONCENTRATION (CELLAVISION)(BEAKER) (test Decreased etdx=0889) Received comment: User comments: Slide comments:POCT-GLUCOSE [id number] 09: 31:00 Test Item Value Reference Range Comments POC-GLUCOSE METER (BEAKER) 103 mg/dL 70-110 : TESTED AT [facility] [address] [facility] (test erxa=4993) [facility] [place], [address]: [employer] IK=[id number] for BG SALAS IMMUNOGLOBULIN G (IGG)2019-04-23 07:17:00 Test Item Value Reference Range Comments IMMUNOGLOBULIN G (IGG) (BEAKER) (test mqgd=612) 291 mg/dL 540-1,822 CALCIUM, [id number] 07:14:00 Test Item Value Reference Range Comments CALCIUM IONIZED (BEAKER) (test odxv=417) 1.10 mmol/L 1.12-1.27 PH, BLOOD (BEAKER) (test nvlx=8334) 7.43 [id number] 07:11:00 Test Item Value Reference Range Comments CORTISOL, TOTAL (BEAKER) (test owro=7194) 3.7 ug/dL 3.7-19.4 BLOOD GAS, [id number] 07:09:00 Test Item Value Reference Range Comments PH VENOUS (BEAKER) (test szpk=926) 7.43 7.32-7.42 PCO2 VENOUS (BEAKER) (test bnve=311) 35 mmHg 41-51 PO2 VENOUS (BEAKER) (test yqrp=741) 62 mmHg 25-40 O2 SATURATION VENOUS (BEAKER) (test upbp=105) 92.9 % 40.0-70.0 HCO3 VENOUS (BEAKER) (test aund=497) 23 mmol/L 21-29 BASE EXCESS VENOUS (BEAKER) (test mbtf=413) -1.2 mmol/L -2.0-3.0 PATIENT TEMPERATURE (BEAKER) (test wfvx=4048) 36.6 C FIO2 (BEAKER) (test wefn=3419) 21.0 % [id number] 06:54:00 Test Item Value Reference Range Comments PHOSPHORUS (BEAKER) (test psci=286) 3.1 mg/dL 2.3-4.7 [id number] 06:54:00 Test Item Value Reference Range Comments MAGNESIUM (BEAKER) (test apyb=345) 1.7 mg/dL 1.6-2.6 BASIC METABOLIC [id number] 06:54:00 Test Item Value Reference Range Comments SODIUM (BEAKER) (test 139 meq/L 136-145 yxrg=417) POTASSIUM (BEAKER) (test 3.8 meq/L 3.5-5.1 qyxm=475) CHLORIDE (BEAKER) (test 109 meq/L 98-107 uwsk=443) CO2 (BEAKER) (test 22 meq/L 22-29 maas=664) BLOOD UREA NITROGEN 53 mg/dL 7-21 (BEAKER) (test itex=749) CREATININE (BEAKER) (test 1.97 mg/dL 0.57-1.25 yjhd=060) GLUCOSE RANDOM (BEAKER) 94 mg/dL 70-105 (test zbgw=428) CALCIUM (BEAKER) (test 8.0 mg/dL 8.4-10.2 medf=067) EGFR (BEAKER) (test 35 mL/min/1.73 sq m ESTIMATED GFR IS NOT dnnq=5732) ACCURATE CREATININE CLEARANCE IN PREDICTING GLOMERULAR FILTRATION RATE. ESTIMATED GFR IS NOT APPLICABLE FOR DIALYSIS PATIENTS. HEPATIC FUNCTION [id number] 06:54:00 Test Item Value Reference Range Comments TOTAL PROTEIN (BEAKER) (test cith=359) 4.4 gm/dL 6.0-8.3 ALBUMIN (BEAKER) (test eent=8789) 2.7 g/dL 3.5-5.0 BILIRUBIN TOTAL (BEAKER) (test jwvk=335) 1.3 mg/dL 0.2-1.2 BILIRUBIN DIRECT (BEAKER) (test edvt=201) 0.9 mg/dL 0.1-0.5 ALKALINE PHOSPHATASE (BEAKER) (test bfjz=260) 148 U/L 40-150 AST (SGOT) (BEAKER) (test ujzu=519) 28 U/L 5-34 ALT (SGPT) (BEAKER) (test wvbx=238) 28 U/L 6-55 VANCOMYCIN LEVEL, [id number] 06:48:00 Test Item Value Reference Range Comments VANCOMYCIN RANDOM (BEAKER) (test ujsm=732) 6.0 ug/mL Reference Range: No NormalsLACTIC ACID, [id number] 06:42:00 Test Item Value Reference Range Comments LACTATE BLOOD ARTERIAL (2) (BEAKER) (test 2.1 mmol/L 0.5-2.2 rhfh=0957) FECAL [id number] 01:59:00 Test Item Value Reference Range Comments FECAL LEUKOCYTES (BEAKER) No fecal leukocytes seen No fecal leukocytes seen (test xdqb=448) BLOOD GAS, [id number] 23:40:00 Test Item Value Reference Range Comments PH VENOUS (BEAKER) (test icjn=148) 7.39 7.32-7.42 PCO2 VENOUS (BEAKER) (test clrj=251) 34 mmHg 41-51 PO2 VENOUS (BEAKER) (test yuyi=497) 52 mmHg 25-40 O2 SATURATION VENOUS (BEAKER) (test hpbs=977) 88.0 % 40.0-70.0 HCO3 VENOUS (BEAKER) (test wsvb=730) 21 mmol/L 21-29 BASE EXCESS VENOUS (BEAKER) (test wczh=563) -4.0 mmol/L -2.0-3.0 PATIENT TEMPERATURE (BEAKER) (test odvp=2843) 36.6 C FIO2 (BEAKER) (test alsh=1309) 21.0 % LEGIONELLA ANTIGEN, [id number] 19:38:00 Test Item Value Reference Range Comments L. PNEUMOPHILA SEROGP 1 Negative - see Negative for L. UR AG (BEAKER) (test comment pneumophila serogroup 1 dpdo=6442) antigen, suggesting no recent or current infection with this serogroup. Legionellosis cannot be ruled out since other serogroups and species may cause disease. STREP PNEUMONIAE [id number] 19:38:00 Test Item Value Reference Range Comments STREP PNEUMONIAE ANTIGEN Presumptive negative for Presumptive negative for (BEAKER) (test pneumococcal pneumonia - pneumococcal pneumonia - wkzy=8345) see comment see commen Presumptive negative for pneumococcal pneumonia, suggesting no current or recent pneumococcal infection. Infection due to S. pneumoniae cannot be ruled out since the antigen present in the sample may be below the detection limit of the test.BASIC METABOLIC [id number] 19:14:00 Test Item Value Reference Range Comments SODIUM (BEAKER) (test 138 meq/L 136-145 znav=895) POTASSIUM (BEAKER) (test 5.0 meq/L 3.5-5.1 yaxz=949) CHLORIDE (BEAKER) (test 112 meq/L 98-107 vxaw=575) CO2 (BEAKER) (test 19 meq/L 22-29 mkbp=634) BLOOD UREA NITROGEN 53 mg/dL 7-21 (BEAKER) (test semv=712) CREATININE (BEAKER) (test 2.18 mg/dL 0.57-1.25 ippo=125) GLUCOSE RANDOM (BEAKER) 125 mg/dL 70-105 (test cfef=622) CALCIUM (BEAKER) (test 8.1 mg/dL 8.4-10.2 wqjy=273) EGFR (BEAKER) (test 31 mL/min/1.73 sq m ESTIMATED GFR IS NOT jryx=3513) ACCURATE CREATININE CLEARANCE IN PREDICTING GLOMERULAR FILTRATION RATE. ESTIMATED GFR IS NOT APPLICABLE FOR DIALYSIS PATIENTS. [id number] 19:13:00 Test Item Value Reference Range Comments HAPTOGLOBIN (BEAKER) (test ouib=558) 63 mg/dL 14-258 LACTIC ACID, [id number] 19:11:00 Test Item Value Reference Range Comments LACTATE BLOOD VENOUS (2) (BEAKER) (test 2.0 mmol/L 0.5-2.2 efte=9289) LACTATE DEHYDROGENASE (LDH)2019-04-22 18:26:00 Test Item Value Reference Range Comments LACTATE DEHYDROGENASE (BEAKER) (test moqi=003) 199 U/L 125-220 U/S, ABDOMINAL, [id number] 16:07:00Referring: Dr. Yary Fernando for exam:->abnormal LFTs and renal fxnFINAL REPORT Ultrasound of the abdomen. Clinical History: abnormal LFTs and renal fxn. Comparison study: December 26, [address] scan of the chest dated January 20, 2019. Findings: Theliver is echogenic in nature consistent with fatty infiltration. No definite focal masses are seen. It measures 15.3 cm in length. There is no evidence of intra or extrahepatic biliary dilatation with the common bile duct measuring 5 mm. The main portal vein diameter is 1.3 cm. Multiple gallstones areseen with the gallbladder wall thickened measuring 8 mm. No gallbladder distention is seen. There juan m small amount of pericholecystic fluid. No sonographic Baltazar sign is present. The spleen measures 16.4 cm, enlarged. The pancreas is only partially visualized. No ascites is present. The right kidneymeasures 8.8 cm and left kidney measures 11.1 cm. A 1.1 x 0.9 x 1.0 cm cyst is seen in the left kidney. The proximal aorta and IVC are unremarkable. No pleural effusions are seen. Impression: 1. Echogenic liver consistent with fatty infiltration. No focal masses.2. Splenomegaly.3. Multiple gallstones with gallbladder wall thickening and minimal pericholecystic fluid. No gallbladder distention or sonographic Baltazar sign are present and therefore this is felt most likely to be related to a low albuminstate. The gallbladder appears less distended than on the prior study dated December 27, 2017.4. Left renal cyst. Signed : Georgi Mike MDReport Verified Date/Time: 04/22/2019 16:07:26 Reading Location:[address] Radiology Reading Room CMV PCR, [id number] 15:18 :00 Test Item Value Reference Range Comments CMV VIRAL LOAD - NEGATIVE Negative or below the linear (BEAKER) (test iwnt=0300) range of the assay (<375 copies/mL) Cytomegalovirus (CMV) infection can cause significant disease in immunosuppressed patients. However,it is common for CMV to manifest as a limited infection which is of no clinical significance in immunosuppressed patients or in healthy individuals.Viral load measurements are helpful to identify clinical CMV infection and to guide the pre-emptive management of antiviral therapy. For treatment of CMVinfection due to reactivation in transplant recipients, a threshold between 4,000 and 5,000 copies/mL is suggested. For treatment of primary CMV infection, a lower threshold can be used.CMV infection may also be monitored using weekly serial measurements. Serial measurements of CMV DNA viral load canbe evaluated by identifying a 10- fold change, as well as assessing the CMV DNA viral load and the clinical context for each patient.The plasma CMV DNA viral load was detected using quantitative polymerase chain reaction and fluorescent monitoring of a specific hybridized probe. Genetic variation and other factors can affect the accuracy of nucleic acid testing. Therefore, the results should be interpreted in light of clinical data. A negative result may not exclude the presence of CMV disease.This test was developed and its performance characteristics determined by the [facility] [place] [facility] Department, Section of Molecular Pathology. It has not been cleared or approved by the U.S. Food and Drug Administration (FDA), since FDA approval is not required for clinical use of the test. Validation was done as required by The Clinical Laboratory Improvement Amendments of 1988.EBV VIRAL [id number] 15:07:00 Test Item Value Reference Range Comments EBV VIRAL LOAD - NEGATIVE Negative or below the linear (BEAKER) (test ojaj=5278) range of the assay (<500 copies/mL) This assay was performed by real-time PCR for the detection of the Elina-Joyner virus (EBV) gene EBNA-1. The test is composed of (1) DNA extraction from patient specimen, and (2) real-time PCR amplification and detection with EBNA-1- specific primers and probes. A well-conserved region of the EBNA-1 gene is targeted, along with an internal control sequence used to confirm PCR amplification. Asymptomatic carriers and viral genetic variation, among other factors, can affect the accuracy of nucleic acid testing; therefore, results should be interpreted in light of clinical data.This test was developedand its performance characteristics determined by the [facility] [place] [facility] Department, Section of Molecular Pathology. It has not been cleared or approved by the U.S. Food and Drug Administration (FDA), since FDA approval is not required for clinical use of the test. Validation was doneas required by The Clinical Laboratory Improvement Amendments of 1988.(CELLAVISION MANUAL DIFF) 2019-04-22 14:01:00 Test Item Value Reference Range Comments NEUTROPHILS - REL (CELLAVISION)(BEAKER) (test 60 % uzmn=3538) LYMPHOCYTES - REL (CELLAVISION)(BEAKER) (test 7 % ltlg=6427) MONOCYTES - REL (CELLAVISION)(BEAKER) (test 10 % elby=3380) BASOPHILS - REL (CELLAVISION)(BEAKER) (test 1 % diup=0177) METAMYELOCYTES - REL (CELLAVISION)(BEAKER) (test 1 % 0-0 seyn=3028) BANDS - REL (CELLAVISION)(BEAKER) (test 19 % 0-10 rgav=4197) ATYPICAL LYMPHOCYTES - REL (CELLAVISION)(BEAKER) 1 % 0-0 (test uwsw=7418) NEUTROPHILS - ABS (CELLAVISION)(BEAKER) (test 0.66 K/ul 1.78-5.38 knwh=5823) LYMPHOCYTES - ABS (CELLAVISION)(BEAKER) (test 0.08 K/ul 1.32-3.57 tyqi=8935) MONOCYTES - ABS (CELLAVISION)(BEAKER) (test 0.11 K/uL 0.30-0.82 ccax=3257) BASOPHILS - ABS (CELLAVISION)(BEAKER) (test 0.01 K/uL 0.01-0.08 bjca=3758) METAMYELOCYTES - ABS (CELLAVISION)(BEAKER) (test 0.01 K/uL 0.00-0.00 tgge=0451) BANDS - ABS (CELLAVISION)(BEAKER) (test 0.21 K/uL 0.00-0.80 xxpa=7760) ATYPICAL LYMPHOCYTES - ABS (CELLAVISION)(BEAKER) 0.01 K/uL 0.00-0.00 (test vqiz=8634) TOTAL COUNTED (BEAKER) (test lymn=4121) 100 GIANT PLATELETS (BEAKER) (test iyst=859) Present PLASMA CELLS(BEAKER) (test xnak=5911) Present POLYCHROMATOPHILLIC RBCS(BEAKER) (test asra=431) 1+ few HYPOCHROMIA (BEAKER) (test cgeg=504) 1+ few ANISOCYTOSIS (BEAKER) (test gccl=017) 2+ moderate MICROCYTES (BEAKER) (test dezk=642) 2+ moderate MACROCYTES (BEAKER) (test gccw=330) 1+ few POIKILOCYTES (BEAKER) (test ikbk=961) 2+ moderate SCHISTOCYTES (BEAKER) (test omfj=961) 1+ few ELLIPTOCYTES (BEAKER) (test zqed=248) 2+ moderate MICKEY CELLS (BEAKER) (test ccph=193) 2+ moderate ARTIFACT (CELLAVISION)(BEAKER) (test pqqu=6232) Present PLATELET CONCENTRATION (CELLAVISION)(BEAKER) Decreased (test igpw=6622) Received comment: User comments: Slide comments:CBC W/PLT COUNT & AUTO [id number] 14:00:00 Test Item Value Reference Range Comments WHITE BLOOD CELL COUNT (BEAKER) (test zzhf=322) 1.1 K/ L 3.5-10.5 RED BLOOD CELL COUNT (BEAKER) (test udfy=495) 2.59 M/ L 4.63-6.08 HEMOGLOBIN (BEAKER) (test huyx=258) 7.8 GM/DL 13.7-17.5 HEMATOCRIT (BEAKER) (test mwiz=430) 25.2 % 40.1-51.0 MEAN CORPUSCULAR VOLUME (BEAKER) (test xqys=463) 97.3 fL 79.0-92.2 MEAN CORPUSCULAR HEMOGLOBIN (BEAKER) (test 30.1 pg 25.7-32.2 fqcw=218) MEAN CORPUSCULAR HEMOGLOBIN CONC (BEAKER) (test 31.0 GM/DL 32.3-36.5 xlzz=974) RED CELL DISTRIBUTION WIDTH (BEAKER) (test 17.0 % 11.6-14.4 zeoi=952) PLATELET COUNT (BEAKER) (test uufl=810) 36 K/CU MM 150-450 MEAN PLATELET VOLUME (BEAKER) (test xdtm=047) 12.6 fL 9.4-12.4 NUCLEATED RED BLOOD CELLS (BEAKER) (test 0 /100 WBC 0-0 waob=494) TROPONIN [id number] 13:53:00 Test Item Value Reference Range Comments TROPONIN I (BEAKER) (test nzac=151) < ng/mL 0.00-0.03 Troponin I (TnI) levels must be interpreted in the context of the presenting symptoms and the clinical findings. Elevated TnI levels indicate myocardial damage, but are not specific for ischemic heart disease. Elevated TnI levels are seen in patients with other cardiac conditions (including myocarditis and congestive heart failure), and slight TnI elevations occur in patients with other conditions, including sepsis, renal failure, acidosis, acute neurological disease, and persistent tachyarrhythmia.BASIC METABOLIC [id number] 13:45:00 Test Item Value Reference Range Comments SODIUM (BEAKER) (test 135 meq/L 136-145 kjqy=625) POTASSIUM (BEAKER) (test 5.6 meq/L 3.5-5.1 njqs=047) CHLORIDE (BEAKER) (test 111 meq/L 98-107 efej=769) CO2 (BEAKER) (test 14 meq/L 22-29 xvki=195) BLOOD UREA NITROGEN 51 mg/dL 7-21 (BEAKER) (test crgj=027) CREATININE (BEAKER) (test 2.13 mg/dL 0.57-1.25 rrpl=684) GLUCOSE RANDOM (BEAKER) 77 mg/dL 70-105 (test smvr=489) CALCIUM (BEAKER) (test 7.9 mg/dL 8.4-10.2 tuod=800) EGFR (BEAKER) (test 32 mL/min/1.73 sq m ESTIMATED GFR IS NOT ezdl=5398) ACCURATE CREATININE CLEARANCE IN PREDICTING GLOMERULAR FILTRATION RATE. ESTIMATED GFR IS NOT APPLICABLE FOR DIALYSIS PATIENTS. CHLORIDE, RANDOM [id number] 12:41:00 Test Item Value Reference Range Comments CHLORIDE URINE (BEAKER) (test regv=413) 45 meq/L Reference Range: No NormalsCREATININE, RANDOM [id number] 12:41:00 Test Item Value Reference Range Comments CREATININE URINE (BEAKER) (test igdb=578) 131.6 mg/dL Reference Range: No NormalsPOTASSIUM, RANDOM [id number] 12:41:00 Test Item Value Reference Range Comments POTASSIUM URINE (BEAKER) (test vvby=105) 68.5 meq/L Reference Range: No NormalsSODIUM, RANDOM [id number] 12:41:00 Test Item Value Reference Range Comments SODIUM URINE (BEAKER) (test dlyu=738) 27 meq/L Reference Range: No NormalsUREA NITROGEN, RANDOM [id number] 12:41:00 Test Item Value Reference Range Comments UREA NITROGEN URINE (BEAKER) (test qnrg=131) 732 mg/dL Reference Range: No NormalsURINALYSIS W/ REFLEX URINE [id number] 11:59:00 Test Item Value Reference Range Comments COLOR (BEAKER) (test iqfu=679) Yellow CLARITY (BEAKER) (test qxmf=349) Hazy SPECIFIC GRAVITY UA (BEAKER) (test yzxh=527) 1.024 1.001-1.035 PH UA (BEAKER) (test lnld=959) 5.0 5.0-8.0 PROTEIN UA (BEAKER) (test mbbh=865) 30 mg/dL Negative GLUCOSE UA (BEAKER) (test qlid=870) Negative Negative KETONES UA (BEAKER) (test qydg=943) Trace Negative BILIRUBIN UA (BEAKER) (test mxdj=942) Negative Negative BLOOD UA (BEAKER) (test eemo=603) Negative Negative NITRITE UA (BEAKER) (test gtto=917) Negative Negative LEUKOCYTE ESTERASE UA (BEAKER) (test qihd=150) Trace Negative UROBILINOGEN UA (BEAKER) (test hlqu=665) 0.2 mg/dL 0.2-1.0 RBC UA (BEAKER) (test cdvp=680) 0 /HPF WBC UA (BEAKER) (test dnqn=679) 3 /HPF BACTERIA (BEAKER) (test errq=806) Rare MUCUS (BEAKER) (test jquu=1317) Rare SQUAMOUS EPITHELIAL (BEAKER) (test lorp=729) 2 /HPF HYALINE CASTS (BEAKER) (test aeic=995) 3 /LPF GRANULAR CASTS (BEAKER) (test lelo=082) 15 /LPF AMORPHOUS CRYSTALS (BEAKER) (test paue=7597) Rare SOURCE(BEAKER) (test wrle=3923) OSMOLALITY, [id number] 11:59:00 Test Item Value Reference Range Comments OSMOLALITY URINE (BEAKER) (test gmcx=928) 536 mOsm/kg 40-1,400 SPECIFIC GRAVITY, [id number] 11:52:00 Test Item Value Reference Range Comments SPECIFIC GRAVITY UA (BEAKER) (test qrvy=001) 1.024 1.001-1.035 TACROLIMUS [id number] 11:08:00 Test Item Value Reference Range Comments TACROLIMUS BLOOD (BEAKER) (test tjgq=880) 3.9 ng/mL 10.0-20.0 [id number] 09:00:00 Test Item Value Reference Range Comments PROCALCITONIN (BEAKER) (test woxq=8039) 64.50 ng/mL <0.05 SEPSIS RISK (ng/mL)Low: 0.05-0.50Intermediate: 0.51-2.00High: & gt;=2.01RAPID INFLUENZA A&B [id number] 07:45:00 Test Item Value Reference Range Comments RAPID INFLUENZA A AG (BEAKER) (test Negative Negative, Inconclusive htyq=6061) RAPID INFLUENZA B AG (BEAKER) (test Negative Negative, Inconclusive zypz=0214) B-TYPE NATRIURETIC FACTOR (BNP)2019-04-22 07:27:00 Test Item Value Reference Range Comments B-TYPE NATRIURETIC PEPTIDE (BEAKER) (test 1132 pg/mL 0-100 mwfe=184) TROPONIN [id number] 07:27:00 Test Item Value Reference Range Comments TROPONIN I (BEAKER) (test gkzw=277) 0.05 ng/mL 0.00-0.03 Troponin I (TnI) levels must be interpreted in the context of the presenting symptoms and the clinical findings. Elevated TnI levels indicate myocardial damage, but are not specific for ischemic heart disease. Elevated TnI levels are seen in patients with other cardiac conditions (including myocarditis and congestive heart failure), and slight TnI elevations occur in patients with other conditions, including sepsis, renal failure, acidosis, acute neurological disease, and persistent tachyarrhythmia.BASIC METABOLIC [id number] 07:21:00 Test Item Value Reference Range Comments SODIUM (BEAKER) (test 135 meq/L 136-145 ugdt=963) POTASSIUM (BEAKER) (test 5.4 meq/L 3.5-5.1 dbxp=553) CHLORIDE (BEAKER) (test 112 meq/L 98-107 sixq=450) CO2 (BEAKER) (test 13 meq/L 22-29 xvfj=104) BLOOD UREA NITROGEN 47 mg/dL 7-21 (BEAKER) (test rajj=225) CREATININE (BEAKER) (test 2.17 mg/dL 0.57-1.25 fazn=668) GLUCOSE RANDOM (BEAKER) 67 mg/dL 70-105 (test nxnc=421) CALCIUM (BEAKER) (test 7.7 mg/dL 8.4-10.2 cslh=090) EGFR (BEAKER) (test 31 mL/min/1.73 sq m ESTIMATED GFR IS NOT solg=0987) ACCURATE CREATININE CLEARANCE IN PREDICTING GLOMERULAR FILTRATION RATE. ESTIMATED GFR IS NOT APPLICABLE FOR DIALYSIS PATIENTS. [id number] 07:20:00 Test Item Value Reference Range Comments PHOSPHORUS (BEAKER) (test dvfs=321) 4.7 mg/dL 2.3-4.7 [id number] 07:20:00 Test Item Value Reference Range Comments MAGNESIUM (BEAKER) (test yukd=791) 1.5 mg/dL 1.6-2.6 HEPATIC FUNCTION [id number] 07:20:00 Test Item Value Reference Range Comments TOTAL PROTEIN (BEAKER) (test znqy=528) 4.6 gm/dL 6.0-8.3 ALBUMIN (BEAKER) (test zgei=6071) 3.0 g/dL 3.5-5.0 BILIRUBIN TOTAL (BEAKER) (test jtyi=765) 2.2 mg/dL 0.2-1.2 BILIRUBIN DIRECT (BEAKER) (test qwvb=465) 1.6 mg/dL 0.1-0.5 ALKALINE PHOSPHATASE (BEAKER) (test svcx=469) 185 U/L 40-150 AST (SGOT) (BEAKER) (test foap=265) 29 U/L 5-34 ALT (SGPT) (BEAKER) (test qnkj=251) 33 U/L 6-55 [id number] 07:13:00 Test Item Value Reference Range Comments PROTIME (BEAKER) (test mddi=598) 26.2 seconds 11.9-14.2 INR (BEAKER) (test bgow=447) 2.6 <=5.9 PARTIAL THROMBOPLASTIN TIME (BEAKER) (test 51.0 seconds 22.5-36.0 xdch=623) Effective 11/26/2018: PT Reference Range ChangeNew: 11.9-14.2 Previous: 11.7- 14.7RECOMMENDED COUMADIN/WARFARIN INR THERAPY RANGESSTANDARD DOSE: 2.0-3.0 Includes: PROPHYLAXIS for venous thrombosis, systemic embolization; TREATMENT for venous thrombosis and/or pulmonary embolus.HIGH RISK: Target INR is2.5-3.5 for patients wiht mechanical heart valves.PROTHROMBIN TIME/[id number] 07:11: 00 Test Item Value Reference Range Comments PROTIME (BEAKER) (test egop=450) 26.2 seconds 11.9-14.2 INR (BEAKER) (test loah=832) 2.6 <=5.9 Effective 11/26/2018: PT Reference Range ChangeNew: 11.9-14.2 Previous: 11.7- 14.7RECOMMENDED COUMADIN/WARFARIN INR THERAPY RANGESSTANDARD DOSE: 2.0-3.0 Includes: PROPHYLAXIS for venous thrombosis, systemic embolization; TREATMENT for venous thrombosis and/or pulmonary embolus.HIGH RISK: Target INR is2.5-3.5 for patients wiht mechanical heart valves.CALCIUM, [id number] 06:59:00 Test Item Value Reference Range Comments CALCIUM IONIZED (BEAKER) (test cwpy=405) 1.10 mmol/L 1.12-1.27 PH, BLOOD (BEAKER) (test ppvu=9404) 7.32 BLOOD GAS, [id number] 06:58:00 Test Item Value Reference Range Comments PH VENOUS (BEAKER) (test djao=427) 7.32 7.32-7.42 PCO2 VENOUS (BEAKER) (test ucke=546) 29 mmHg 41-51 PO2 VENOUS (BEAKER) (test jkje=838) 49 mmHg 25-40 O2 SATURATION VENOUS (BEAKER) (test cptv=796) 82.1 % 40.0-70.0 HCO3 VENOUS (BEAKER) (test kmsz=985) 15 mmol/L 21-29 BASE EXCESS VENOUS (BEAKER) (test xlcd=034) -10.4 mmol/L -2.0-3.0 PATIENT TEMPERATURE (BEAKER) (test isic=0514) 37.0 C FIO2 (BEAKER) (test eojb=1993) 21.0 % RAD, ABDOMEN/KUB, 1 VIEW [id number] 06:48:00Referring: Dr. Yary Fernando for exam:->abdominal painFINAL REPORT CLINICAL HISTORY: Abdominal pain COMPARISON: 12/31/2017 FINDINGS:Two supine views of the abdomen are submitted. The abdominal bowel gas pattern is nonspecific but grossly unobstructed. There is no focus of gas dilated large or small bowel. There is splenomegaly. No abnormal calcification is noted. There is no acute bony abnormality. Signed: Alvarez Romero MDReportVerified Date/Time: 04/22 06:48:47 Electronically signed by: ALVAREZ ROMERO M.D. on 2018 06:48 AMRAD, CHEST, 1 VIEW, NON [id number] 06:46:00Referring: Dr. Yary Fernando for exam:->chest discomfortShould this be performed at the bedside?->YesFINAL REPORT History: Chest discomfort. Comparison: 01/20/2019 Findings: A single view of the chest is submitted. The examination is limited by low lung volumes and slight rightward rotation. The cardiac silhouette is prominent in size, and appearance likely magnified by low lung volumes and portable technique. Sternotomy wires are in place. There is central vascular congestion. Diffuse interstitial opacities, including peripheral interlobular septal thickening, suggest pulmonary edema. Patchy bibasilar airspace opacities may reflect a combination of atelectasis and edema but pneumonitis should be excluded clinically. There is no pneumothorax or acute bony abnormality. Signed: Alvarez Romeroeport Verified Date/Time: 04/22/2019 06:46:48 BUN AND [id number] 12:39:00 Test Item Value Reference Range Comments BLOOD UREA NITROGEN 29 mg/dL 7-21 (BEAKER) (test ounz=463) CREATININE (BEAKER) (test 1.40 mg/dL 0.57-1.25 Specimen moderately ozsm=148) hemolyzed EGFR (BEAKER) (test 52 mL/min/1.73 sq m ESTIMATED GFR IS NOT rith=3818) ACCURATE CREATININE CLEARANCE IN PREDICTING GLOMERULAR FILTRATION RATE. ESTIMATED GFR IS NOT APPLICABLE FOR DIALYSIS PATIENTS. TISSUE [id number] 12:55:00Surgical Pathology Report Case: [id number] Authorizing Provider: Reg Serrano, Collected: 02/20/2019 1622 [facility] Received: 2018 0843 Services Pathologist: Gemma Samayoa MD Specimens: A) -Polyp, Colon - Cecum, cecum polyp B) - Large Intestine, Colon - Right/Ascending, random right colon biopsy R/O microscopic colitis C) - Polyp, Colon - Right/Ascending, ascending colon polyp x 3 D) - Large Intestine, Colon - Left/ Descending, random left colon biopsy R/O microscopic colitis A. COLON , CECUM POLYP, POLYPECTOMY- POLYPOID MUCOSAL FRAGMENTS WITHOUT ADENOMATOUS OR HYPERPLASTIC CHANGE- FOCAL ACUTE COLITIS, MILDB. COLON, RIGHT/ASCENDING, BIOPSY- NO EVIDENCE OF LYMPHOCYTIC OR COLLAGENOUS COLITIS- CD 138 DOESNOT HIGHLIGHT PLASMA CELLS IN LAMINA PROPRIA (SEE COMMENT)C. COLON, RIGHT/ ASCENDING COLON POLYP, POLYPECTOMY- TUBULAR ADENOMA, TWO- ONE POLYPOID MUCOSAL FRAGMENT WITHOUT DIAGNOSTIC ALTERATIOND.COLON, LEFT/DESCENDING, BIOPSY- NO EVIDENCE OF LYMPHOCYTIC OR COLLAGENOUS COLITIS- MILD EDEMA IN LAMINA PROPRIA - CD 138 DOES NOT HIGHLIGHT PLASMA CELLS IN LAMINA PROPRIA IN MAJORITY OF THE FRAGMENTS EXCEPT ONE (SEE COMMENT) Signing Pathologist Direct Phone Line: [phone] signed by Gemma Samayoa MD on 03/03/2019 at 12:55 PMDecreased to absent plasma cells are seen inthe lamina propria consistent with history of common variable immunodeficiency. No features of microscopic colitis, active inflammation or parasites are seen.INTRADEPARTMENTAL CONSULTATION: - Sarah Siegel MD has seen specimen B and D and agrees with the diagnosis.[id number] x 4, 17744, 40826Uqjjglk diarrhea, polyp of cecum , H/O lung transplant in 12/2012, Common variable immunodeficiencyA. Cecum polyp. B.Random right colon biopsy, rule out microscopic colitis. C. Ascending colon polyp x3. D. Random leftcolon biopsy, rule out microscopic colitis.Received in formalin in four parts, all labeled with the patient's name and accession number.Part A. Labeled "polyp, colon-cecum" are two irregular salvador- red soft tissue fragments each measuring 0.3 cm, which are submitted in toto in A1.Part B. Labeled "large intestine, colon-right/ascending" are two irregular salvador soft tissue fragments measuring 0.5 cm and 0.4cm, which are submitted in toto in B1.Part C. Labeled "polyp, colon-right/ascending" are multiple salvador soft tissue fragments admixed with clotted blood ranging 0.2-0.5 cm, which are submitted in toto inC1.Part D. Labeled "large intestine, colon-left/descending" are multiple salvador soft tissue fragments ranging from 0.2-0.5 cm, which are submitted in toto in D1. CG/ewPerformed.The interpretation of this case included the use of immunohistochemistry or special stains.JRC176- no plasma cells highlighted in lamina propriaD CD138- no plasma cells highlighted in lamina propria , except in one fragmentControl Slides Examined: In-house known positive controls were evaluated along with the test tissue. These control slides run alongside of the patients sample show appropriate staining. Internal positive and negative controls when available are evaluated [facility] where it was developed and its performancecharacteristics were determined. It has not been cleared or approved by the U.S. Food and Drug Administration. The FDA has determined that such clearance or approval is not necessary. The test is used for clinical purposes. It should not be regarded as investigational or for research. This laboratory is certified under the Clinical Laboratory Improvement Amendments of 1988 (CLIA- 88) as qualified to perform high complexity clinical laboratory testing.CT, CHEST, WITHOUT [id number] 16:06:00Referring: Dr. Yary Fernando for Exam:->s/p lung transplant, yearly follow upFINAL REPORT CT scan of the chest. HISTORY: Blunt abdominal trauma, microscopic hematuria, lung transplant follow-up. COMPARISON STUDY: Chest x-ray dated October and CT scanof the chest dated March 02, 2016. TECHNIQUE: Contiguous helical slices were acquired through thethorax without the administration of contrast. This exam was performed according to our department dose optimization program which includes automated exposure control, adjustment of the mA and/or kV according to the patient's size and/or use of iterative reconstruction technique. FINDINGS: The mediastinum demonstrates atherosclerosis but no suspicious masses or adenopathy. Post lung transplant changes are seen. There are trace effusions/pleural thickening, similar to previous and slightly more pronounced on the left side. The visualized portions of the upper abdomen demonstrate a nodular, cirrhoticappearing liver and splenomegaly with the spleen measuring 13.7 cm in AP diameter. Cholelithiasis isseen. Trace ascites is noted. The tracheobronchial tree is clear with no endobronchial lesions. The pulmonary parenchyma demonstrates atelectasis or fibrosis in both lung bases. A 4 mm nodule is seen in the posterior aspect of the left lung apex, likely scarring. Stable minimal nodularity is seen in the right upper lobe, image 16. Bone windows demonstrate degenerative changes. Post sternotomy changesare seen. IMPRESSION:1. Status post bilateral lung transplant. There is 4 mm nodule in the posterioraspect of the left lung apex which is more pronounced on previous. While it likely represent subpleural scarring, it could be followed up in 3-6 months time.2. There is pleural thickening, similar to previous.3. Nodular, cirrhotic liver with splenomegaly and trace ascites. The ascites is new.4. Cholelithiasis. Signed: Georgi Mike MDReport Verified Date/Time: 2018 16:06:56 Reading Location:[facility] C013Y CT Body Reading Room CMV PCR, [id number] 13:51:00 Test Item Value Reference Range Comments CMV VIRAL LOAD - NEGATIVE Negative or below the linear (BEAKER) (test jffr=7422) range of the assay (<375 copies/mL) Cytomegalovirus (CMV) infection can cause significant disease in immunosuppressed patients. However,it is common for CMV to manifest as a limited infection which is of no clinical significance in immunosuppressed patients or in healthy individuals.Viral load measurements are helpful to identify clinical CMV infection and to guide the pre-emptive management of antiviral therapy. For treatment of CMVinfection due to reactivation in transplant recipients, a threshold between 4,000 and 5,000 copies/mL is suggested. For treatment of primary CMV infection, a lower threshold can be used.CMV infection may also be monitored using weekly serial measurements. Serial measurements of CMV DNA viral load canbe evaluated by identifying a 10- fold change, as well as assessing the CMV DNA viral load and the clinical context for each patient.The plasma CMV DNA viral load was detected using quantitative polymerase chain reaction and fluorescent monitoring of a specific hybridized probe. Genetic variation and other factors can affect the accuracy of nucleic acid testing. Therefore, the results should be interpreted in light of clinical data. A negative result may not exclude the presence of CMV disease.This test was developed and its performance characteristics determined by the [facility] Pathology Department, Section of Molecular Pathology. It has not been cleared or approved by the U.S. Food and Drug Administration (FDA), since FDA approval is not required for clinical use of the test. Validation was done as required by The Clinical Laboratory Improvement Amendments of 1988.TACROLIMUS [id number] 12:43:00 Test Item Value Reference Range Comments TACROLIMUS BLOOD (BEAKER) (test clgg=008) 10.4 ng/mL 10.0-20.0 RAD, CHEST, 2 [id number] 12:28:00Referring: Dr. Yary Lozano Reason for Exam:->s/p lung transplantFINAL REPORT PA and lateral chest, 01/20/2019 COMPARISON: 11/18/2018 The heart,lungs and mediastinum remain within normal limits. Sternal sutures and mediastinal clips are noted. There is persistent minimal blunting of both costophrenic angles consistent with mild thickening or tiny effusions. No significant osseous abnormalities are identified. Signed: Noe Rowan MDReport Verified Date/Time: 01/20/2019 12:28 :25 Reading Location: [facility] Diagnostic Imaging Reading Room - [facility] 1.310.12 [id number] 12:02:00 Test Item Value Reference Range Comments PROSTATE SPECIFIC ANTIGEN (BEAKER) (test bbtw=278) 0.3 ng/mL 0.0-4.0 MALES onlyVITAMIN D, [id number] 12:02:00 Test Item Value Reference Range Comments VITAMIN D 25-OH (BEAKER) (test luhf=8649) 23.8 ng/mL 6.6-49.9 Effective 04/10/2017: Reference Range ChangeNew: 6.6-49.9 ng/mL Previous: 13.0 -47.8 ng/mLRecommended Vitamin D Target Range: 30.0-40.0 ng/mLMALES onlyHEMOGLOBIN [id number] 11:40:00 Test Item Value Reference Range Comments HEMOGLOBIN A1C (BEAKER) (test onxm=484) 4.4 % 4.3-6.1 [id number] 10:45:00 Test Item Value Reference Range Comments PHOSPHORUS (BEAKER) (test oach=511) 3.5 mg/dL 2.3-4.7 [id number] 10:45:00 Test Item Value Reference Range Comments MAGNESIUM (BEAKER) (test uzle=793) 1.5 mg/dL 1.6-2.6 COMPREHENSIVE METABOLIC [id number] 10:45:00 Test Item Value Reference Range Comments TOTAL PROTEIN (BEAKER) 6.1 gm/dL 6.0-8.3 (test fkxc=300) ALBUMIN (BEAKER) (test 4.0 g/dL 3.5-5.0 twqw=5909) ALKALINE PHOSPHATASE 383 U/L 40-150 (BEAKER) (test qqld=705) BILIRUBIN TOTAL (BEAKER) 0.9 mg/dL 0.2-1.2 (test emxz=534) SODIUM (BEAKER) (test 140 meq/L 136-145 nuhn=156) POTASSIUM (BEAKER) (test 5.2 meq/L 3.5-5.1 mwdn=428) CHLORIDE (BEAKER) (test 116 meq/L 98-107 prit=700) CO2 (BEAKER) (test 19 meq/L 22-29 fpsb=324) BLOOD UREA NITROGEN 36 mg/dL 7-21 (BEAKER) (test batv=004) CREATININE (BEAKER) (test 1.47 mg/dL 0.57-1.25 bwmx=766) GLUCOSE RANDOM (BEAKER) 85 mg/dL 70-105 (test jgrg=386) CALCIUM (BEAKER) (test 8.9 mg/dL 8.4-10.2 lgpf=275) AST (SGOT) (BEAKER) (test 59 U/L 5-34 iiqn=496) ALT (SGPT) (BEAKER) (test 54 U/L 6-55 ryri=750) EGFR (BEAKER) (test 49 mL/min/1.73 sq m ESTIMATED GFR IS NOT okxk=6422) ACCURATE CREATININE CLEARANCE IN PREDICTING GLOMERULAR FILTRATION RATE. ESTIMATED GFR IS NOT APPLICABLE FOR DIALYSIS PATIENTS. LIPID [id number] 10:45:00 Test Item Value Reference Range Comments TRIGLYCERIDES (BEAKER) (test phsf=128) 82 mg/dL CHOLESTEROL (BEAKER) (test wyma=644) 117 mg/dL HDL CHOLESTEROL (BEAKER) (test iqea=251) 39 mg/dL LDL CHOLESTEROL CALCULATED (BEAKER) (test 62 mg/dL tdfb=061) Triglyceride Reference Range: Low Risk <150 Borderline 150- 199 High Risk 200-499 Very High Risk >=500Cholesterol Reference Range: Low Risk <200 Borderline 200-239 High Risk > 240HDL Cholesterol Reference Range: Low Risk >=60 High Risk <40LDL Cholesterol Reference Range: Optimal <100 Near Optimal 100-129 Borderline 130-159 High 160-189 Very High >=190LACTATE DEHYDROGENASE (LDH)2019-01-20 10:45:00 Test Item Value Reference Range Comments LACTATE DEHYDROGENASE (BEAKER) (test wpro=525) 205 U/L 125-220 CBC W/PLT COUNT & AUTO [id number] 09:48:00 Test Item Value Reference Range Comments WHITE BLOOD CELL COUNT (BEAKER) (test bfcf=665) 3.9 K/ L 3.5-10.5 RED BLOOD CELL COUNT (BEAKER) (test jdre=472) 3.25 M/ L 4.63-6.08 HEMOGLOBIN (BEAKER) (test topa=685) 10.2 GM/DL 13.7-17.5 HEMATOCRIT (BEAKER) (test cckg=482) 31.7 % 40.1-51.0 MEAN CORPUSCULAR VOLUME (BEAKER) (test itmd=712) 97.5 fL 79.0-92.2 MEAN CORPUSCULAR HEMOGLOBIN (BEAKER) (test 31.4 pg 25.7-32.2 wlfe=532) MEAN CORPUSCULAR HEMOGLOBIN CONC (BEAKER) (test 32.2 GM/DL 32.3-36.5 glsg=654) RED CELL DISTRIBUTION WIDTH (BEAKER) (test 15.7 % 11.6-14.4 scjy=477) PLATELET COUNT (BEAKER) (test vmhy=624) 73 K/CU MM 150-450 MEAN PLATELET VOLUME (BEAKER) (test ccwi=456) 11.9 fL 9.4-12.4 NUCLEATED RED BLOOD CELLS (BEAKER) (test 0 /100 WBC 0-0 abhx=137) NEUTROPHILS RELATIVE PERCENT (BEAKER) (test 70 % czhf=165) LYMPHOCYTES RELATIVE PERCENT (BEAKER) (test 19 % trko=690) MONOCYTES RELATIVE PERCENT (BEAKER) (test 7 % tdpx=662) EOSINOPHILS RELATIVE PERCENT (BEAKER) (test 2 % hhqu=113) BASOPHILS RELATIVE PERCENT (BEAKER) (test 1 % kugj=402) NEUTROPHILS ABSOLUTE COUNT (BEAKER) (test 2.71 K/ L 1.78-5.38 chhg=143) LYMPHOCYTES ABSOLUTE COUNT (BEAKER) (test 0.75 K/ L 1.32-3.57 epab=853) MONOCYTES ABSOLUTE COUNT (BEAKER) (test yybh=009) 0.28 K/ L 0.30-0.82 EOSINOPHILS ABSOLUTE COUNT (BEAKER) (test 0.07 K/ L 0.04-0.54 uncz=836) BASOPHILS ABSOLUTE COUNT (BEAKER) (test rtol=163) 0.04 K/ L 0.01-0.08 IMMATURE GRANULOCYTES-RELATIVE PERCENT (BEAKER) 0 % 0-1 (test frgi=9045) SPUTUM CULTURE + GRAM [id number] 23:12:00 Test Item Value Reference Range Comments CULTURE (BEAKER) (test Oropharyngeal contamination, xuji=0514) specimen rejected. Recollect requested. GRAM STAIN RESULT (BEAKER) <1+ WBCs (test rwsv=4563) GRAM STAIN RESULT (BEAKER) 10-15 epithelial cells (test yunv=17035) GRAM STAIN RESULT (BEAKER) <1+ gram negative rods (test mxue=53572) GRAM STAIN RESULT (BEAKER) 3+ gram positive cocci in pairs (test gufs=730393) and clusters TACROLIMUS [id number] 11:06:00 Test Item Value Reference Range Comments TACROLIMUS BLOOD (BEAKER) (test hmiy=313) 9.7 ng/mL 10.0-20.0 [id number] 09:20:00 Test Item Value Reference Range Comments MAGNESIUM (BEAKER) (test dxan=496) 1.7 mg/dL 1.6-2.6 COMPREHENSIVE METABOLIC [id number] 09:20:00 Test Item Value Reference Range Comments TOTAL PROTEIN (BEAKER) 5.7 gm/dL 6.0-8.3 (test vypo=835) ALBUMIN (BEAKER) (test 3.8 g/dL 3.5-5.0 bxko=8935) ALKALINE PHOSPHATASE 495 U/L 40-150 (BEAKER) (test apxh=855) BILIRUBIN TOTAL (BEAKER) 0.7 mg/dL 0.2-1.2 (test uxqa=812) SODIUM (BEAKER) (test 144 meq/L 136-145 uaon=531) POTASSIUM (BEAKER) (test 5.3 meq/L 3.5-5.1 talw=009) CHLORIDE (BEAKER) (test 119 meq/L 98-107 uhsc=443) CO2 (BEAKER) (test 20 meq/L 22-29 hcpc=719) BLOOD UREA NITROGEN 30 mg/dL 7-21 (BEAKER) (test cver=695) CREATININE (BEAKER) (test 1.50 mg/dL 0.57-1.25 cclh=976) GLUCOSE RANDOM (BEAKER) 93 mg/dL 70-105 (test lhcl=126) CALCIUM (BEAKER) (test 9.2 mg/dL 8.4-10.2 hyiu=720) AST (SGOT) (BEAKER) (test 41 U/L 5-34 otdp=830) ALT (SGPT) (BEAKER) (test 49 U/L 6-55 alnr=377) EGFR (BEAKER) (test 48 mL/min/1.73 sq m ESTIMATED GFR IS NOT gmcp=1728) ACCURATE CREATININE CLEARANCE IN PREDICTING GLOMERULAR FILTRATION RATE. ESTIMATED GFR IS NOT APPLICABLE FOR DIALYSIS PATIENTS. CBC W/PLT COUNT & AUTO [id number] 09:01:00 Test Item Value Reference Range Comments WHITE BLOOD CELL COUNT (BEAKER) (test rkdf=771) 4.0 K/ L 3.5-10.5 RED BLOOD CELL COUNT (BEAKER) (test jhzh=949) 3.21 M/ L 4.63-6.08 HEMOGLOBIN (BEAKER) (test afal=885) 9.6 GM/DL 13.7-17.5 HEMATOCRIT (BEAKER) (test weut=646) 31.4 % 40.1-51.0 MEAN CORPUSCULAR VOLUME (BEAKER) (test mggm=653) 97.8 fL 79.0-92.2 MEAN CORPUSCULAR HEMOGLOBIN (BEAKER) (test 29.9 pg 25.7-32.2 giru=968) MEAN CORPUSCULAR HEMOGLOBIN CONC (BEAKER) (test 30.6 GM/DL 32.3-36.5 lqrm=767) RED CELL DISTRIBUTION WIDTH (BEAKER) (test 18.0 % 11.6-14.4 msmd=850) PLATELET COUNT (BEAKER) (test crof=835) 84 K/CU MM 150-450 MEAN PLATELET VOLUME (BEAKER) (test vjuk=320) 9.8 fL 9.4-12.4 NUCLEATED RED BLOOD CELLS (BEAKER) (test 0 /100 WBC 0-0 xpqa=548) NEUTROPHILS RELATIVE PERCENT (BEAKER) (test 70 % fdzl=723) LYMPHOCYTES RELATIVE PERCENT (BEAKER) (test 19 % qfxm=150) MONOCYTES RELATIVE PERCENT (BEAKER) (test 7 % nqrr=184) EOSINOPHILS RELATIVE PERCENT (BEAKER) (test 3 % nhyg=567) BASOPHILS RELATIVE PERCENT (BEAKER) (test 1 % hyrg=865) NEUTROPHILS ABSOLUTE COUNT (BEAKER) (test 2.82 K/ L 1.78-5.38 nrje=772) LYMPHOCYTES ABSOLUTE COUNT (BEAKER) (test 0.78 K/ L 1.32-3.57 ocxb=137) MONOCYTES ABSOLUTE COUNT (BEAKER) (test vvvq=261) 0.28 K/ L 0.30-0.82 EOSINOPHILS ABSOLUTE COUNT (BEAKER) (test 0.10 K/ L 0.04-0.54 ltmp=510) BASOPHILS ABSOLUTE COUNT (BEAKER) (test vqxs=153) 0.03 K/ L 0.01-0.08 IMMATURE GRANULOCYTES-RELATIVE PERCENT (BEAKER) 1 % 0-1 (test vprr=5776) CMV PCR, [id number] 15:10:00 Test Item Value Reference Range Comments CMV VIRAL LOAD - NEGATIVE Negative or below the linear (BEAKER) (test mtzy=3932) range of the assay (<375 copies/mL) Cytomegalovirus (CMV) infection can cause significant disease in immunosuppressed patients. However,it is common for CMV to manifest as a limited infection which is of no clinical significance in immunosuppressed patients or in healthy individuals.Viral load measurements are helpful to identify clinical CMV infection and to guide the pre-emptive management of antiviral therapy. For treatment of CMVinfection due to reactivation in transplant recipients, a threshold between 4,000 and 5,000 copies/mL is suggested. For treatment of primary CMV infection, a lower threshold can be used.CMV infection may also be monitored using weekly serial measurements. Serial measurements of CMV DNA viral load canbe evaluated by identifying a 10- fold change, as well as assessing the CMV DNA viral load and the clinical context for each patient.The plasma CMV DNA viral load was detected using quantitative polymerase chain reaction and fluorescent monitoring of a specific hybridized probe. Genetic variation and other factors can affect the accuracy of nucleic acid testing. Therefore, the results should be interpreted in light of clinical data. A negative result may not exclude the presence of CMV disease.This test was developed and its performance characteristics determined by the [facility] Pathology Department, Section of Molecular Pathology. It has not been cleared or approved by the U.S. Food and Drug Administration (FDA), since FDA approval is not required for clinical use of the test. Validation was done as required by The Clinical Laboratory Improvement Amendments of 1988.RESPIRATORY PANEL [id number] 16:22:00 Test Item Value Reference Range Comments HUMAN METAPNEUMOVIRUS (BEAKER) (test Not detected Not detected, Equivocal wsna=4039) RHINOVIRUS (BEAKER) (test hplt=5581) Not detected Not detected, Equivocal INFLUENZA A (BEAKER) (test jtku=6637) Not detected Not detected, Equivocal INFLUENZA A (NO SUBTYPE) (test Not detected, Equivocal ldiv=3561) INFLUENZA A SUBTYPE H1 (BEAKER) (test Not detected, Equivocal azqq=8122) INFLUENZA A SUBTYPE H3 (BEAKER) (test Not detected, Equivocal alzu=0450) INFLUENZA A SUBTYPE H1-2009 (BEAKER) Not detected, Equivocal (test yqjm=2420) INFLUENZA B (BEAKER) (test tujx=0845) Not detected Not detected, Equivocal RESPIRATORY SYNCYTIAL VIRUS (BEAKER) Not detected Not detected, Equivocal (test jxzv=7994) PARAINFLUENZA VIRUS 1 (BEAKER) (test Not detected Not detected, Equivocal lith=4853) PARAINFLUENZA VIRUS 2 (BEAKER) (test Not detected Not detected, Equivocal rhmr=9408) PARAINFLUENZA VIRUS 3 (BEAKER) (test Not detected Not detected, Equivocal xkjq=8620) PARAINFLUENZA VIRUS 4 (BEAKER) (test Not detected Not detected, Equivocal hfoj=2377) ADENOVIRUS (BEAKER) (test pdmy=2308) Not detected Not detected, Equivocal CORONAVIRUS 229E (BEAKER) (test Not detected Not detected, Equivocal pydl=0246) CORONAVIRUS HKU1 (BEAKER) (test Not detected Not detected, Equivocal hawn=9911) CORONAVIRUS NL63 (BEAKER) (test Not detected Not detected, Equivocal lxpr=4698) CORONAVIRUS OC43 (BEAKER) (test Not detected Not detected, Equivocal logb=7765) BORDETELLA PERTUSSIS (BEAKER) (test Not detected Not detected, Equivocal bcxj=7488) CHLAMYDOPHILA PNEUMONIAE (BEAKER) (test Not detected Not detected, Equivocal afue=8104) MYCOPLASMA PNEUMONIAE (BEAKER) (test Not detected Not detected, Equivocal rfgg=2727) Other viruses and bacteria not targeted by this PCR panel cannot be excluded; therefore clinical correlation and follow up of serology, culture results, and other molecular studies is required. The results are not intended to be used as the sole means for clinical diagnosis or patient management decisions. This sample was tested at the [facility] Molecular Diagnostics Laboratory using the CheggArray Respiratory Panel. It is FDA cleared and has been verified and approved by the [facility] Molecular Diagnostics Laboratory for clinical use on nasopharyngeal swab specimens.The performance of the FilmArrayRP has not been established in individuals who received influenza vaccine. Recent administration ofa nasal influenza vaccine may cause false positive results for Influenza A and/orInfluenza B.HEMOGLOBIN [id number] 12:52:00 Test Item Value Reference Range Comments HEMOGLOBIN A1C (BEAKER) (test fshj=144) 4.9 % 4.3-6.1 TACROLIMUS [id number] 12:24:00 Test Item Value Reference Range Comments TACROLIMUS BLOOD (BEAKER) (test rbtz=244) 2.8 ng/mL 10.0-20.0 [id number] 11:47:00 Test Item Value Reference Range Comments PHOSPHORUS (BEAKER) (test oxtz=473) 3.2 mg/dL 2.3-4.7 [id number] 11:47:00 Test Item Value Reference Range Comments MAGNESIUM (BEAKER) (test fsto=872) 1.6 mg/dL 1.6-2.6 COMPREHENSIVE METABOLIC [id number] 11:47:00 Test Item Value Reference Range Comments TOTAL PROTEIN (BEAKER) 5.9 gm/dL 6.0-8.3 (test tgjf=220) ALBUMIN (BEAKER) (test 3.7 g/dL 3.5-5.0 dlxn=6960) ALKALINE PHOSPHATASE 593 U/L 40-150 (BEAKER) (test haao=255) BILIRUBIN TOTAL (BEAKER) 0.5 mg/dL 0.2-1.2 (test nqva=053) SODIUM (BEAKER) (test 139 meq/L 136-145 oadp=330) POTASSIUM (BEAKER) (test 4.5 meq/L 3.5-5.1 kult=961) CHLORIDE (BEAKER) (test 111 meq/L 98-107 orzp=703) CO2 (BEAKER) (test 23 meq/L 22-29 dfyb=318) BLOOD UREA NITROGEN 26 mg/dL 7-21 (BEAKER) (test mile=718) CREATININE (BEAKER) (test 1.23 mg/dL 0.57-1.25 shjw=487) GLUCOSE RANDOM (BEAKER) 93 mg/dL 70-105 (test fzhl=327) CALCIUM (BEAKER) (test 8.8 mg/dL 8.4-10.2 vqko=794) AST (SGOT) (BEAKER) (test 36 U/L 5-34 bpvc=297) ALT (SGPT) (BEAKER) (test 49 U/L 6-55 foul=497) EGFR (BEAKER) (test 60 mL/min/1.73 sq m ESTIMATED GFR IS NOT fvuf=0151) ACCURATE CREATININE CLEARANCE IN PREDICTING GLOMERULAR FILTRATION RATE. ESTIMATED GFR IS NOT APPLICABLE FOR DIALYSIS PATIENTS. LIPID [id number] 11:47:00 Test Item Value Reference Range Comments TRIGLYCERIDES (BEAKER) (test hqzs=512) 94 mg/dL CHOLESTEROL (BEAKER) (test sdvf=449) 135 mg/dL HDL CHOLESTEROL (BEAKER) (test krii=692) 41 mg/dL LDL CHOLESTEROL CALCULATED (BEAKER) (test 75 mg/dL tvap=634) Triglyceride Reference Range: Low Risk <150 Borderline 150- 199 High Risk 200-499 Very High Risk >=500Cholesterol Reference Range: Low Risk <200 Borderline 200-239 High Risk > 240HDL Cholesterol Reference Range: Low Risk >=60 High Risk <40LDL Cholesterol Reference Range: Optimal <100 Near Optimal 100-129 Borderline 130-159 High 160-189 Very High >=190LACTATE DEHYDROGENASE (LDH)2018-11-18 11:47:00 Test Item Value Reference Range Comments LACTATE DEHYDROGENASE (BEAKER) (test blec=634) 194 U/L 125-220 CBC W/PLT COUNT & AUTO [id number] 11:19:00 Test Item Value Reference Range Comments WHITE BLOOD CELL COUNT (BEAKER) (test zgey=311) 6.1 K/ L 3.5-10.5 RED BLOOD CELL COUNT (BEAKER) (test sykm=428) 2.95 M/ L 4.63-6.08 HEMOGLOBIN (BEAKER) (test ibvz=776) 8.7 GM/DL 13.7-17.5 HEMATOCRIT (BEAKER) (test xxss=869) 27.9 % 40.1-51.0 MEAN CORPUSCULAR VOLUME (BEAKER) (test qwpc=471) 94.6 fL 79.0-92.2 MEAN CORPUSCULAR HEMOGLOBIN (BEAKER) (test 29.5 pg 25.7-32.2 zqba=439) MEAN CORPUSCULAR HEMOGLOBIN CONC (BEAKER) (test 31.2 GM/DL 32.3-36.5 jhoo=087) RED CELL DISTRIBUTION WIDTH (BEAKER) (test 16.1 % 11.6-14.4 xlad=003) PLATELET COUNT (BEAKER) (test fxdg=702) 99 K/CU MM 150-450 MEAN PLATELET VOLUME (BEAKER) (test gote=996) 10.7 fL 9.4-12.4 NUCLEATED RED BLOOD CELLS (BEAKER) (test 0 /100 WBC 0-0 nmpm=045) NEUTROPHILS RELATIVE PERCENT (BEAKER) (test 84 % jqbn=413) LYMPHOCYTES RELATIVE PERCENT (BEAKER) (test 9 % osri=219) MONOCYTES RELATIVE PERCENT (BEAKER) (test 5 % vlek=622) EOSINOPHILS RELATIVE PERCENT (BEAKER) (test 0 % thoz=777) BASOPHILS RELATIVE PERCENT (BEAKER) (test 0 % sqta=673) NEUTROPHILS ABSOLUTE COUNT (BEAKER) (test 5.10 K/ L 1.78-5.38 soqn=174) LYMPHOCYTES ABSOLUTE COUNT (BEAKER) (test 0.57 K/ L 1.32-3.57 bxff=654) MONOCYTES ABSOLUTE COUNT (BEAKER) (test hogp=301) 0.31 K/ L 0.30-0.82 EOSINOPHILS ABSOLUTE COUNT (BEAKER) (test 0.02 K/ L 0.04-0.54 luxm=412) BASOPHILS ABSOLUTE COUNT (BEAKER) (test zrjr=871) 0.01 K/ L 0.01-0.08 IMMATURE GRANULOCYTES-RELATIVE PERCENT (BEAKER) 2 % 0-1 (test ngzk=9018) RAD, CHEST, 2 [id number] 10:04:00Reason for Exam:->s/p lung transplantFINAL REPORT Chest, 2 views. Clinical History: s/p lung transplant ComparisonStudy: August 05, 2018 Findings: The heart and lungs are within normal limits. Sternotomy wires are seen. Blunting of the right costophrenic angle is seen. No significant bony or soft tissue abnormalities are seen. Impression: No significant change. Signed: Georgi Mike Verified Date/Time: 11/18/2018 10:04:14 Reading Location: [address] Radiology Reading Room [id number] 13:40:00 Test Item Value Reference Range Comments BLOOD UREA NITROGEN (BEAKER) (test rsxj=632) 22 mg/dL - [id number] 13:40:00 Test Item Value Reference Range Comments CREATININE (BEAKER) (test 1.03 mg/dL 0.57-1.25 sxbi=073) EGFR (BEAKER) (test 73 mL/min/1.73 sq m ESTIMATED GFR IS NOT aome=4398) ACCURATE CREATININE CLEARANCE IN PREDICTING GLOMERULAR FILTRATION RATE. ESTIMATED GFR IS NOT APPLICABLE FOR DIALYSIS PATIENTS. GIARDIA [id number] 15:23:00 Test Item Value Reference Range Comments GIARDIA ANTIGEN (QUEST) Not detected Not detected NOTE: Due to (test rckl=[id number]) intermittent shedding, one negative sample does not necessarily rule out the presence of a parasitic infection. Performing Lab *[facility], [address] [place] [id number] Sumi Davila MD, PhDOVA AND PARASITE [id number] 07:46:00 Test Item Value Reference Range Comments DIRECT SMEAR - O\\T\\P No ova or parasites seen No ova or parasites seen (BEAKER) (test ulkx=930) CONCENTRATE SMEAR - O\\T\\P No ova or parasites seen No ova or parasites seen (BEAKER) (test tbqv=452) TRICHROME SMEAR - O\\T\\P No ova or parasites seen No ova or parasites seen (BEAKER) (test wndy=433) U/S, [id number] 15:43:00Reason for Exam:->abdl distentionReason for Exam:->s/p lung transplantFINAL REPORT Ultrasound guided paracentesis Clinical History: Ascites LocalAnesthesia: 5 cc of 1% lidocaine Technique: Informed consent is obtained. The risks of pain , bleeding, infection, bowel perforation, injury to adjacent structures, and adverse medication reactions are discussed with the patient. After informed consent is obtained, the patient's abdomen is scanned. The right lower quadrant of the abdomen is selected for paracentesis. After the largest fluid pocket area is marked, and the anterior abdominal wall is evaluated with color Doppler to exclude presence of blood vessels traversing the area, the skin is prepped and draped in the usual sterile manner.After local anesthesia is achieved, a 5 Italian catheter is advanced into the peritoneal cavity. Approximately 1300 cc of serosanguineous fluid is drained, without immediate complications. Fluid is sent for analysis. Patient Disposition: The patient is discharged from the ultrasound department after the paracentesis, in good condition. Impression: Successful and uncomplicated ultrasound guided paracentesis is performed. Signed: Tonny Perryort Verified Date/Time: 2018 15:43:52 Reading Location: [address] Ultrasound Reading Room Electronically signed by: TONNY PERRY M.D. on08/19/2018 03:43 PMRESPIRATORY PANEL [id number] 13:59:00 Test Item Value Reference Range Comments HUMAN METAPNEUMOVIRUS (BEAKER) (test Not detected Not detected, Equivocal czio=3064) RHINOVIRUS (BEAKER) (test klaw=8031) Not detected Not detected, Equivocal INFLUENZA A (BEAKER) (test krph=9146) Not detected Not detected, Equivocal INFLUENZA A (NO SUBTYPE) (test Not detected, Equivocal ejxu=6432) INFLUENZA A SUBTYPE H1 (BEAKER) (test Not detected, Equivocal dbbl=1100) INFLUENZA A SUBTYPE H3 (BEAKER) (test Not detected, Equivocal ypzp=3749) INFLUENZA A SUBTYPE H1-2009 (BEAKER) Not detected, Equivocal (test koyi=7198) INFLUENZA B (BEAKER) (test ybma=8413) Not detected Not detected, Equivocal RESPIRATORY SYNCYTIAL VIRUS (BEAKER) Not detected Not detected, Equivocal (test lebi=5424) PARAINFLUENZA VIRUS 1 (BEAKER) (test Not detected Not detected, Equivocal fvnh=6520) PARAINFLUENZA VIRUS 2 (BEAKER) (test Not detected Not detected, Equivocal jnyw=0629) PARAINFLUENZA VIRUS 3 (BEAKER) (test Not detected Not detected, Equivocal tegj=3548) PARAINFLUENZA VIRUS 4 (BEAKER) (test Not detected Not detected, Equivocal tlrg=0681) ADENOVIRUS (BEAKER) (test zona=2678) Not detected Not detected, Equivocal CORONAVIRUS 229E (BEAKER) (test Not detected Not detected, Equivocal vbhx=1520) CORONAVIRUS HKU1 (BEAKER) (test Not detected Not detected, Equivocal tpfu=9217) CORONAVIRUS NL63 (BEAKER) (test Not detected Not detected, Equivocal wqaa=6213) CORONAVIRUS OC43 (BEAKER) (test Not detected Not detected, Equivocal rvfp=2653) BORDETELLA PERTUSSIS (BEAKER) (test Not detected Not detected, Equivocal rwri=1228) CHLAMYDOPHILA PNEUMONIAE (BEAKER) (test Not detected Not detected, Equivocal mbky=5945) MYCOPLASMA PNEUMONIAE (BEAKER) (test Not detected Not detected, Equivocal bbat=6641) Other viruses and bacteria not targeted by this PCR panel cannot be excluded; therefore clinical correlation and follow up of serology, culture results, and other molecular studies is required. The results are not intended to be used as the sole means for clinical diagnosis or patient management decisions. This sample was tested at the [facility] Molecular Diagnostics Laboratory using the CheggArray Respiratory Panel. It is FDA cleared and has been verified and approved by the [facility] Molecular Diagnostics Laboratory for clinical use on nasal swab specimens. It is not FDA-cleared for use on bronchial wash/lavage samples. However, for this sample type, validation was performed and test characteristics were determined and approved, by [facility] laboratory for clinical use under the Clinical Laboratory Improvement Amendments (CLIA) of 1988 requirements. Therefore, FDA clearance isnot required. This laboratory is CLIA-certified and [employer] ([employer])-accredited to perform high complexity testing.TACROLIMUS [id number] 13:46:00 Test Item Value Reference Range Comments TACROLIMUS BLOOD (BEAKER) (test dkfv=986) 5.5 ng/mL 10.0-20.0 PROTHROMBIN [id number] 13:05:00 Test Item Value Reference Range Comments PROTIME (BEAKER) (test jdbm=909) 14.6 seconds 11.7-14.7 INR (BEAKER) (test lesx=855) 1.1 <=5.9 RECOMMENDED COUMADIN/WARFARIN INR THERAPY RANGESSTANDARD DOSE: 2.0 - 3.0 Includes: PROPHYLAXIS forvenous thrombosis, systemic embolization; TREATMENT for venous thrombosis and/or pulmonary embolus.HIGH RISK: Target INR is 2.5-3.5 for patients with mechanical heart valves.RAPID STREP A [id number] 11:41: 00 Test Item Value Reference Range Comments STREP A ANTIGEN (BEAKER) (test sjhz=479) Negative Negative [id number] 11:10:00 Test Item Value Reference Range Comments MAGNESIUM (BEAKER) (test wshj=175) 1.4 mg/dL 1.6-2.6 BASIC METABOLIC [id number] 11:10:00 Test Item Value Reference Range Comments SODIUM (BEAKER) (test 141 meq/L 136-145 uxlj=115) POTASSIUM (BEAKER) (test 3.9 meq/L 3.5-5.1 ufgt=052) CHLORIDE (BEAKER) (test 114 meq/L 98-107 tebt=666) CO2 (BEAKER) (test 21 meq/L 22-29 hpdl=923) BLOOD UREA NITROGEN 15 mg/dL 7-21 (BEAKER) (test tsct=134) CREATININE (BEAKER) (test 1.12 mg/dL 0.57-1.25 rqyy=541) GLUCOSE RANDOM (BEAKER) 82 mg/dL 70-105 (test nerx=979) CALCIUM (BEAKER) (test 8.1 mg/dL 8.4-10.2 kjdy=143) EGFR (BEAKER) (test 67 mL/min/1.73 sq m ESTIMATED GFR IS NOT qeor=9806) ACCURATE CREATININE CLEARANCE IN PREDICTING GLOMERULAR FILTRATION RATE. ESTIMATED GFR IS NOT APPLICABLE FOR DIALYSIS PATIENTS. CBC W/PLT COUNT & AUTO [id number] 10:55:00 Test Item Value Reference Range Comments WHITE BLOOD CELL COUNT (BEAKER) (test eadx=791) 3.0 K/ L 3.5-10.5 RED BLOOD CELL COUNT (BEAKER) (test psky=027) 3.28 M/ L 4.63-6.08 HEMOGLOBIN (BEAKER) (test zhql=027) 8.7 GM/DL 13.7-17.5 HEMATOCRIT (BEAKER) (test njta=585) 29.0 % 40.1-51.0 MEAN CORPUSCULAR VOLUME (BEAKER) (test xzdt=518) 88.4 fL 79.0-92.2 MEAN CORPUSCULAR HEMOGLOBIN (BEAKER) (test 26.5 pg 25.7-32.2 ffkj=500) MEAN CORPUSCULAR HEMOGLOBIN CONC (BEAKER) (test 30.0 GM/DL 32.3-36.5 xnyw=014) RED CELL DISTRIBUTION WIDTH (BEAKER) (test 16.7 % 11.6-14.4 ribr=598) PLATELET COUNT (BEAKER) (test kjfb=018) 80 K/CU MM 150-450 MEAN PLATELET VOLUME (BEAKER) (test wmyd=083) 11.0 fL 9.4-12.4 NUCLEATED RED BLOOD CELLS (BEAKER) (test 0 /100 WBC 0-0 ssnz=494) NEUTROPHILS RELATIVE PERCENT (BEAKER) (test 76 % paca=053) LYMPHOCYTES RELATIVE PERCENT (BEAKER) (test 17 % mtsz=337) MONOCYTES RELATIVE PERCENT (BEAKER) (test 5 % vahh=388) EOSINOPHILS RELATIVE PERCENT (BEAKER) (test 1 % aard=026) BASOPHILS RELATIVE PERCENT (BEAKER) (test 0 % wkri=349) NEUTROPHILS ABSOLUTE COUNT (BEAKER) (test 2.27 K/ L 1.78-5.38 tqil=050) LYMPHOCYTES ABSOLUTE COUNT (BEAKER) (test 0.51 K/ L 1.32-3.57 kjfd=176) MONOCYTES ABSOLUTE COUNT (BEAKER) (test dwfs=408) 0.16 K/ L 0.30-0.82 EOSINOPHILS ABSOLUTE COUNT (BEAKER) (test 0.02 K/ L 0.04-0.54 zjst=519) BASOPHILS ABSOLUTE COUNT (BEAKER) (test hzon=669) 0.01 K/ L 0.01-0.08 IMMATURE GRANULOCYTES-RELATIVE PERCENT (BEAKER) 0 % 0-1 (test iork=8305) BUN AND [id number] 15:09:00 Test Item Value Reference Range Comments BLOOD UREA NITROGEN 22 mg/dL 7-21 (BEAKER) (test xiul=806) CREATININE (BEAKER) (test 1.19 mg/dL 0.57-1.25 Specimen slightly hvas=540) hemolyzed EGFR (BEAKER) (test 62 mL/min/1.73 sq m ESTIMATED GFR IS NOT etcy=0284) ACCURATE CREATININE CLEARANCE IN PREDICTING GLOMERULAR FILTRATION RATE. ESTIMATED GFR IS NOT APPLICABLE FOR DIALYSIS PATIENTS. STOOL CULTURE + SHIGA [id number] 12:11:00 Test Item Value Reference Range Comments CULTURE (BEAKER) (test No Salmonella, Shigella or gozb=3736) Campylobacter isolated SHIGA TOXIN [id number] 16:28:00 Test Item Value Reference Range Comments SHIGA TOXIN 1 (BEAKER) (test llbd=3156) Not detected Not detected SHIGA TOXIN 2 (BEAKER) (test hcfh=9326) Not detected Not detected STOOL PATH [id number] 12:11:00 Test Item Value Reference Range Comments PATHOGEN EXAM CHARGED (BEAKER) (test kkrm=1592) Done C. DIFFICILE GDH [id number] 16:18:00 Test Item Value Reference Range Comments CDT TOXIN (test Negative Negative seki=[id number]) CDT GDH ANTIGEN (test Negative Negative No indication of Clostridium seop=[id number]) difficile infection and no colonization. Discontinue enteric isolation and therapy. Testing performed by [employer] Rapid Cassette Assay. For GDH, published sensitivity of the assay is 98.7% compared to cytotoxicity testing. For Toxin AB, published sensitivity is 87.8% and specificity 99.4% compared to cytotoxicity testing.Verification of kit performance was done by the [facility] Microbiology Lab prior to clinical use.FECAL [id number] 14:50:00 Test Item Value Reference Range Comments FECAL LEUKOCYTES (BEAKER) No fecal leukocytes seen No fecal leukocytes seen (test olat=386) CMV PCR, [id number] 14:34:00 Test Item Value Reference Range Comments CMV VIRAL LOAD - NEGATIVE Negative or below the linear (BEAKER) (test jguk=[id number]) range of the assay (<375 copies/mL) Cytomegalovirus (CMV) infection can cause significant disease in immunosuppressed patients. However,it is common for CMV to manifest as a limited infection which is of no clinical significance in immunosuppressed patients or in healthy individuals.Viral load measurements are helpful to identify clinical CMV infection and to guide the pre-emptive management of antiviral therapy. For treatment of CMVinfection due to reactivation in transplant recipients, a threshold between 4,000 and 5,000 copies/mL is suggested. For treatment of primary CMV infection, a lower threshold can be used.CMV infection may also be monitored using weekly serial measurements. Serial measurements of CMV DNA viral load canbe evaluated by identifying a 10- fold change, as well as assessing the CMV DNA viral load and the clinical context for each patient.The plasma CMV DNA viral load was detected using quantitative polymerase chain reaction and fluorescent monitoring of a specific hybridized probe. Genetic variation and other factors can affect the accuracy of nucleic acid testing. Therefore, the results should be interpreted in light of clinical data. A negative result may not exclude the presence of CMV disease.This test was developed and its performance characteristics determined by the [facility] [place] Pathology Department, Section of Molecular Pathology. It has not been cleared or approved by the [place]. Food and Drug Administration (FDA), since FDA approval is not required for clinical use of the test. Validation was done as required by The Clinical Laboratory Improvement Amendments of 1988.TACROLIMUS [id number] 12:06:00 Test Item Value Reference Range Comments TACROLIMUS BLOOD (BEAKER) (test pcah=881) 4.8 ng/mL 10.0-20.0 [id number] 08:47:00 Test Item Value Reference Range Comments PHOSPHORUS (BEAKER) (test ifbb=877) 2.1 mg/dL 2.3-4.7 [id number] 08:47:00 Test Item Value Reference Range Comments MAGNESIUM (BEAKER) (test sqmy=489) 1.7 mg/dL 1.6-2.6 COMPREHENSIVE METABOLIC [id number] 08:47:00 Test Item Value Reference Range Comments TOTAL PROTEIN (BEAKER) 5.2 gm/dL 6.0-8.3 (test kkqw=648) ALBUMIN (BEAKER) (test 3.7 g/dL 3.5-5.0 jexb=9985) ALKALINE PHOSPHATASE 421 U/L 40-150 (BEAKER) (test gmdv=593) BILIRUBIN TOTAL (BEAKER) 0.8 mg/dL 0.2-1.2 (test yfbv=940) SODIUM (BEAKER) (test 145 meq/L 136-145 hmul=175) POTASSIUM (BEAKER) (test 5.2 meq/L 3.5-5.1 ttyk=464) CHLORIDE (BEAKER) (test 117 meq/L 98-107 ndct=661) CO2 (BEAKER) (test 22 meq/L 22-29 zqbd=032) BLOOD UREA NITROGEN 23 mg/dL 7-21 (BEAKER) (test qqni=032) CREATININE (BEAKER) (test 1.21 mg/dL 0.57-1.25 awcm=755) GLUCOSE RANDOM (BEAKER) 91 mg/dL 70-105 (test fbhj=553) CALCIUM (BEAKER) (test 8.6 mg/dL 8.4-10.2 mxzc=753) AST (SGOT) (BEAKER) (test 39 U/L 5-34 ohrm=083) ALT (SGPT) (BEAKER) (test 44 U/L 6-55 dapd=371) EGFR (BEAKER) (test 61 mL/min/1.73 sq m ESTIMATED GFR IS NOT veod=4319) ACCURATE CREATININE CLEARANCE IN PREDICTING GLOMERULAR FILTRATION RATE. ESTIMATED GFR IS NOT APPLICABLE FOR DIALYSIS PATIENTS. LACTATE DEHYDROGENASE (LDH)2018-08-05 08:47:00 Test Item Value Reference Range Comments LACTATE DEHYDROGENASE (BEAKER) (test ztfx=060) 189 U/L 125-220 RAD, CHEST, 2 [id number] 08:33:00Reason for Exam:->s/p lung transplantFINAL REPORT CHEST, AP AND LATERAL. HISTORY: Status post lung transplant. COMPARISON: 05/29/2018. FINDINGS/IMPRESSION: There are post surgical changes from prior median sternotomy. The trachea is midline. There are suspected trace bilateral pleural effusions and bibasilar opacities suggestive of atelectasis. There is no evidence for large focal consolidation or pneumothorax. The cardiomediastinal silhouette is stable in appearance. No acute osseous abnormalities identified. The soft tissues are unremarkable. Signed: Javed Paezeport Verified Date/Time: 08/05/2018 08: 33:35 Reading Location: [facility] Radiology Reading Room CBC W/PLT COUNT & AUTO [id number] 08:23:00 Test Item Value Reference Range Comments WHITE BLOOD CELL COUNT (BEAKER) (test meiw=200) 5.5 K/ L 3.5-10.5 RED BLOOD CELL COUNT (BEAKER) (test eamy=725) 3.46 M/ L 4.63-6.08 HEMOGLOBIN (BEAKER) (test rhao=472) 9.4 GM/DL 13.7-17.5 HEMATOCRIT (BEAKER) (test iwxv=513) 31.3 % 40.1-51.0 MEAN CORPUSCULAR VOLUME (BEAKER) (test qhdl=492) 90.5 fL 79.0-92.2 MEAN CORPUSCULAR HEMOGLOBIN (BEAKER) (test 27.2 pg 25.7-32.2 vjmg=017) MEAN CORPUSCULAR HEMOGLOBIN CONC (BEAKER) (test 30.0 GM/DL 32.3-36.5 hnrw=654) RED CELL DISTRIBUTION WIDTH (BEAKER) (test 16.5 % 11.6-14.4 yfnf=199) PLATELET COUNT (BEAKER) (test wxcg=303) 126 K/CU MM 150-450 MEAN PLATELET VOLUME (BEAKER) (test uper=882) 11.0 fL 9.4-12.4 NUCLEATED RED BLOOD CELLS (BEAKER) (test 0 /100 WBC 0-0 rjhj=333) NEUTROPHILS RELATIVE PERCENT (BEAKER) (test 74 % oneo=441) LYMPHOCYTES RELATIVE PERCENT (BEAKER) (test 16 % greh=034) MONOCYTES RELATIVE PERCENT (BEAKER) (test 8 % bpyy=850) EOSINOPHILS RELATIVE PERCENT (BEAKER) (test 2 % yrwi=535) BASOPHILS RELATIVE PERCENT (BEAKER) (test 1 % riwe=845) NEUTROPHILS ABSOLUTE COUNT (BEAKER) (test 4.03 K/ L 1.78-5.38 jdpa=293) LYMPHOCYTES ABSOLUTE COUNT (BEAKER) (test 0.86 K/ L 1.32-3.57 xhgd=951) MONOCYTES ABSOLUTE COUNT (BEAKER) (test 0.41 K/ L 0.30-0.82 qsxq=654) EOSINOPHILS ABSOLUTE COUNT (BEAKER) (test 0.13 K/ L 0.04-0.54 jlwx=641) BASOPHILS ABSOLUTE COUNT (BEAKER) (test 0.03 K/ L 0.01-0.08 verh=354) IMMATURE GRANULOCYTES-RELATIVE PERCENT (BEAKER) 0 % 0-1 (test twgm=3045) AFB CULTURE + [id number] 12:42:00 Test Item Value Reference Range Comments CULTURE (BEAKER) (test No acid-fast bacilli isolated rpzm=6522) in 42 days AFB SMEAR (BEAKER) (test No acid fast bacilli seen qzgp=967) TACROLIMUS [id number] 11:26:00 Test Item Value Reference Range Comments TACROLIMUS BLOOD (BEAKER) (test lpll=751) 5.6 ng/mL 10.0-20.0 CBC W/PLT COUNT & AUTO [id number] 08:07:00 Test Item Value Reference Range Comments WHITE BLOOD CELL COUNT (BEAKER) (test kacg=142) 5.2 K/ L 3.5-10.5 RED BLOOD CELL COUNT (BEAKER) (test jqdl=318) 3.11 M/ L 4.63-6.08 HEMOGLOBIN (BEAKER) (test giub=083) 9.1 GM/DL 13.7-17.5 HEMATOCRIT (BEAKER) (test cvrm=604) 29.2 % 40.1-51.0 MEAN CORPUSCULAR VOLUME (BEAKER) (test sjmn=064) 93.9 fL 79.0-92.2 MEAN CORPUSCULAR HEMOGLOBIN (BEAKER) (test 29.3 pg 25.7-32.2 uzeg=398) MEAN CORPUSCULAR HEMOGLOBIN CONC (BEAKER) (test 31.2 GM/DL 32.3-36.5 orbm=300) RED CELL DISTRIBUTION WIDTH (BEAKER) (test 15.9 % 11.6-14.4 pslo=506) PLATELET COUNT (BEAKER) (test gcce=141) 100 K/CU MM 150-450 MEAN PLATELET VOLUME (BEAKER) (test bzus=387) 10.0 fL 9.4-12.4 NUCLEATED RED BLOOD CELLS (BEAKER) (test 0 /100 WBC 0-0 wsep=899) NEUTROPHILS RELATIVE PERCENT (BEAKER) (test 82 % pwzk=408) LYMPHOCYTES RELATIVE PERCENT (BEAKER) (test 10 % zbkt=973) MONOCYTES RELATIVE PERCENT (BEAKER) (test 7 % drvt=927) EOSINOPHILS RELATIVE PERCENT (BEAKER) (test 1 % ttpx=165) BASOPHILS RELATIVE PERCENT (BEAKER) (test 1 % twtu=460) NEUTROPHILS ABSOLUTE COUNT (BEAKER) (test 4.24 K/ L 1.78-5.38 ccif=859) LYMPHOCYTES ABSOLUTE COUNT (BEAKER) (test 0.49 K/ L 1.32-3.57 gxyi=397) MONOCYTES ABSOLUTE COUNT (BEAKER) (test 0.34 K/ L 0.30-0.82 hryo=327) EOSINOPHILS ABSOLUTE COUNT (BEAKER) (test 0.07 K/ L 0.04-0.54 nejv=632) BASOPHILS ABSOLUTE COUNT (BEAKER) (test 0.03 K/ L 0.01-0.08 zbyf=630) IMMATURE GRANULOCYTES-RELATIVE PERCENT (BEAKER) 0 % 0-1 (test pxsa=2911) [id number] 07:54:00 Test Item Value Reference Range Comments MAGNESIUM (BEAKER) (test djaq=079) 1.7 mg/dL 1.6-2.6 BASIC METABOLIC [id number] 07:54:00 Test Item Value Reference Range Comments SODIUM (BEAKER) (test 140 meq/L 136-145 yeli=912) POTASSIUM (BEAKER) (test 4.6 meq/L 3.5-5.1 hydc=694) CHLORIDE (BEAKER) (test 109 meq/L 98-107 vevz=297) CO2 (BEAKER) (test 24 meq/L 22-29 oxcp=593) BLOOD UREA NITROGEN 30 mg/dL 7-21 (BEAKER) (test glpj=704) CREATININE (BEAKER) (test 1.77 mg/dL 0.57-1.25 ctbl=133) GLUCOSE RANDOM (BEAKER) 94 mg/dL 70-105 (test nfhd=635) CALCIUM (BEAKER) (test 9.0 mg/dL 8.4-10.2 ftwq=482) EGFR (BEAKER) (test 39 mL/min/1.73 sq m ESTIMATED GFR IS NOT vvyu=8643) ACCURATE CREATININE CLEARANCE IN PREDICTING GLOMERULAR FILTRATION RATE. ESTIMATED GFR IS NOT APPLICABLE FOR DIALYSIS PATIENTS. FUNGUS CULTURE + [id number] 13:47:00 Test Item Value Reference Range Comments CULTURE (BEAKER) (test <1+ Jane dubliniensis muon=2686) FUNGUS SMEAR (BEAKER) (test No fungi seen ebsk=8756) TACROLIMUS [id number] 12:34:00 Test Item Value Reference Range Comments TACROLIMUS BLOOD (BEAKER) (test nqja=261) 3.3 ng/mL 10.0-20.0 RAD, BONE DENSITY [id number] 12:09:00Reason for Exam:->terminal worker use of prednisoneReason for Exam:->s/p lung transplantFINAL REPORT Bone mineral density study, 06/05/2018. CLINICAL INDICATION: Long-term prednisone use. COMPARISON: None. IMPRESSION: Bone densitometry of the femoral necks and lumbar spine was performed. The left femoral neck bone mineral density is 0.689 gm/cm2, the T-score is -2.9, and the Z-score is -1.5. The right femoral neck total bone mineral density is 0.649 gm/cm2, the T-score is - 3.2, and the Z-score is -1.7. The lumbar spine total bone mineral density is 0.887 gm/cm2, the T-score is -2.9, and the Z-score is -1.7. Signed: Damari Ocampo MDReport Verified Date/Time: 06/05/2018 12:09:02 Reading Location: [facility] Reading Room IMMUNOGLOBULIN A (IGA)2018-06-05 11:42:00 Test Item Value Reference Range Comments IMMUNOGLOBULIN A (IGA) (BEAKER) (test zcjf=125) < mg/dL 63-484 IMMUNOGLOBULIN M (IGM)2018-06-05 11:42:00 Test Item Value Reference Range Comments IMMUNOGLOBULIN M (IGM) (BEAKER) (test kbem=728) < mg/dL 22-293 IMMUNOGLOBULIN G (IGG)2018-06-05 11:42:00 Test Item Value Reference Range Comments IMMUNOGLOBULIN G (IGG) (BEAKER) (test yrup=530) < mg/dL 540-1,822 [id number] 11:15:00 Test Item Value Reference Range Comments MAGNESIUM (BEAKER) (test xwih=934) 1.6 mg/dL 1.6-2.6 BASIC METABOLIC [id number] 11:15:00 Test Item Value Reference Range Comments SODIUM (BEAKER) (test 142 meq/L 136-145 divg=694) POTASSIUM (BEAKER) (test 4.5 meq/L 3.5-5.1 ndqd=550) CHLORIDE (BEAKER) (test 110 meq/L 98-107 zves=783) CO2 (BEAKER) (test 25 meq/L 22-29 qitz=305) BLOOD UREA NITROGEN 35 mg/dL 7-21 (BEAKER) (test wtrm=213) CREATININE (BEAKER) (test 1.62 mg/dL 0.57-1.25 fclt=435) GLUCOSE RANDOM (BEAKER) 91 mg/dL 70-105 (test jkwy=306) CALCIUM (BEAKER) (test 9.5 mg/dL 8.4-10.2 pfmn=884) EGFR (BEAKER) (test 44 mL/min/1.73 sq m ESTIMATED GFR IS NOT coeu=9294) ACCURATE CREATININE CLEARANCE IN PREDICTING GLOMERULAR FILTRATION RATE. ESTIMATED GFR IS NOT APPLICABLE FOR DIALYSIS PATIENTS. CBC W/PLT COUNT & AUTO [id number] 11:12:00 Test Item Value Reference Range Comments WHITE BLOOD CELL COUNT (BEAKER) (test kigp=824) 4.0 K/ L 3.5-10.5 RED BLOOD CELL COUNT (BEAKER) (test ndas=253) 2.91 M/ L 4.63-6.08 HEMOGLOBIN (BEAKER) (test yurf=378) 8.8 GM/DL 13.7-17.5 HEMATOCRIT (BEAKER) (test bukc=942) 27.7 % 40.1-51.0 MEAN CORPUSCULAR VOLUME (BEAKER) (test qayq=077) 95.2 fL 79.0-92.2 MEAN CORPUSCULAR HEMOGLOBIN (BEAKER) (test 30.2 pg 25.7-32.2 pvgd=106) MEAN CORPUSCULAR HEMOGLOBIN CONC (BEAKER) (test 31.8 GM/DL 32.3-36.5 rzpy=386) RED CELL DISTRIBUTION WIDTH (BEAKER) (test 16.1 % 11.6-14.4 orxr=462) PLATELET COUNT (BEAKER) (test vrol=372) 78 K/CU MM 150-450 MEAN PLATELET VOLUME (BEAKER) (test kosw=749) 10.7 fL 9.4-12.4 NUCLEATED RED BLOOD CELLS (BEAKER) (test 0 /100 WBC 0-0 fpdj=891) NEUTROPHILS RELATIVE PERCENT (BEAKER) (test 81 % lwwy=245) LYMPHOCYTES RELATIVE PERCENT (BEAKER) (test 10 % sieg=427) MONOCYTES RELATIVE PERCENT (BEAKER) (test 7 % vgdo=149) EOSINOPHILS RELATIVE PERCENT (BEAKER) (test 2 % oxvr=642) BASOPHILS RELATIVE PERCENT (BEAKER) (test 1 % hlea=212) NEUTROPHILS ABSOLUTE COUNT (BEAKER) (test 3.23 K/ L 1.78-5.38 xydd=808) LYMPHOCYTES ABSOLUTE COUNT (BEAKER) (test 0.40 K/ L 1.32-3.57 egfa=828) MONOCYTES ABSOLUTE COUNT (BEAKER) (test nhrx=209) 0.26 K/ L 0.30-0.82 EOSINOPHILS ABSOLUTE COUNT (BEAKER) (test 0.06 K/ L 0.04-0.54 flaz=125) BASOPHILS ABSOLUTE COUNT (BEAKER) (test ygen=957) 0.04 K/ L 0.01-0.08 IMMATURE GRANULOCYTES-RELATIVE PERCENT (BEAKER) 0 % 0-1 (test dsdk=3513) SPUTUM CULTURE + GRAM [id number] 19:04:00 Test Item Value Reference Range Comments CULTURE (BEAKER) (test 4+ Normal respiratory tre yxri=5594) present GRAM STAIN RESULT (BEAKER) 1+ WBCs (test stjt=7694) GRAM STAIN RESULT (BEAKER) 0-5 epithelial cells (test ywed=93439) GRAM STAIN RESULT (BEAKER) 1+ gram negative rods (test qinc=37279) GRAM STAIN RESULT (BEAKER) 3+ gram positive rods (test ptme=749925) SPIN/CONCENTRATION [id number] 00:19:00 Test Item Value Reference Range Comments CONCENTRATION CHARGED (BEAKER) (test bwfe=3288) Done CMV PCR, [id number] 14:39:00 Test Item Value Reference Range Comments CMV VIRAL LOAD - NEGATIVE Negative or below the linear (BEAKER) (test hiet=2567) range of the assay (<375 copies/mL) Cytomegalovirus (CMV) infection can cause significant disease in immunosuppressed patients. However,it is common for CMV to manifest as a limited infection which is of no clinical significance in immunosuppressed patients or in healthy individuals.Viral load measurements are helpful to identify clinical CMV infection and to guide the pre-emptive management of antiviral therapy. For treatment of CMVinfection due to reactivation in transplant recipients, a threshold between 4,000 and 5,000 copies/mL is suggested. For treatment of primary CMV infection, a lower threshold can be used.CMV infection may also be monitored using weekly serial measurements. Serial measurements of CMV DNA viral load canbe evaluated by identifying a 10- fold change, as well as assessing the CMV DNA viral load and the clinical context for each patient.The plasma CMV DNA viral load was detected using quantitative polymerase chain reaction and fluorescent monitoring of a specific hybridized probe. Genetic variation and other factors can affect the accuracy of nucleic acid testing. Therefore, the results should be interpreted in light of clinical data. A negative result may not exclude the presence of CMV disease.This test was developed and its performance characteristics determined by the [facility] Pathology Department, Section of Molecular Pathology. It has not been cleared or approved by the U.S. Food and Drug Administration (FDA), since FDA approval is not required for clinical use of the test. Validation was done as required by The Clinical Laboratory Improvement Amendments of 1988.TACROLIMUS [id number] 14:31:00 Test Item Value Reference Range Comments TACROLIMUS BLOOD (BEAKER) (test hsie=020) 13.0 ng/mL 10.0-20.0 RESPIRATORY PANEL [id number] 12:51:00 Test Item Value Reference Range Comments HUMAN METAPNEUMOVIRUS Not detected Not detected, (BEAKER) (test jgny=0787) Equivocal RHINOVIRUS (BEAKER) (test Detected Not detected, Assay is not able kzva=0442) Equivocal differentiate between Human Rhinovirus and Enterovirus.Droplet isolation. Contact isolation if young infants. Consider stopping antibiotics. INFLUENZA A (BEAKER) (test Not detected Not detected, tjew=1752) Equivocal INFLUENZA A (NO SUBTYPE) Not detected, (test bolo=1186) Equivocal INFLUENZA A SUBTYPE H1 Not detected, (BEAKER) (test vibe=5826) Equivocal INFLUENZA A SUBTYPE H3 Not detected, (BEAKER) (test ochd=6449) Equivocal INFLUENZA A SUBTYPE H1-2009 Not detected, (BEAKER) (test ffrd=2182) Equivocal INFLUENZA B (BEAKER) (test Not detected Not detected, fduk=8790) Equivocal RESPIRATORY SYNCYTIAL VIRUS Not detected Not detected, (BEAKER) (test ammi=2121) Equivocal PARAINFLUENZA VIRUS 1 Not detected Not detected, (BEAKER) (test ystl=6808) Equivocal PARAINFLUENZA VIRUS 2 Not detected Not detected, (BEAKER) (test lrrb=2963) Equivocal PARAINFLUENZA VIRUS 3 Not detected Not detected, (BEAKER) (test bpmj=7614) Equivocal PARAINFLUENZA VIRUS 4 Not detected Not detected, (BEAKER) (test ejnd=3471) Equivocal ADENOVIRUS (BEAKER) (test Not detected Not detected, elfk=9558) Equivocal CORONAVIRUS 229E (BEAKER) Not detected Not detected, (test gqut=1400) Equivocal CORONAVIRUS HKU1 (BEAKER) Not detected Not detected, (test hfsl=5251) Equivocal CORONAVIRUS NL63 (BEAKER) Not detected Not detected, (test qiad=5326) Equivocal CORONAVIRUS OC43 (BEAKER) Not detected Not detected, (test vcze=7458) Equivocal BORDETELLA PERTUSSIS Not detected Not detected, (BEAKER) (test tuml=1954) Equivocal CHLAMYDOPHILA PNEUMONIAE Not detected Not detected, (BEAKER) (test urqr=0504) Equivocal MYCOPLASMA PNEUMONIAE Not detected Not detected, (BEAKER) (test smxq=0587) Equivocal Other viruses and bacteria not targeted by this PCR panel cannot be excluded; therefore clinical correlation and follow up of serology, culture results, and other molecular studies is required. The results are not intended to be used as the sole means for clinical diagnosis or patient management decisions. This sample was tested at the [facility] Molecular Diagnostics Laboratory using the [employer] Respiratory Panel. It is FDA cleared and has been verified and approved by the [facility] Molecular Diagnostics Laboratory for clinical use on nasal swab specimens. It is not FDA-cleared for use on bronchial wash/lavage samples. However, for this sample type, validation was performed and test characteristics were determined and approved, by [facility] laboratory for clinical use under the Clinical Laboratory Improvement Amendments (CLIA) of 1988 requirements. Therefore, FDA clearance isnot required. This laboratory is CLIA-certified and [employer] ([employer])-accredited to perform high complexity testing.HEMOGLOBIN [id number] 10:37:00 Test Item Value Reference Range Comments HEMOGLOBIN A1C (BEAKER) (test esyd=173) 4.5 % 4.3-6.1 CREATININE, RANDOM [id number] 09:55:00 Test Item Value Reference Range Comments CREATININE URINE (BEAKER) (test sqas=586) 195.0 mg/dL Reference Range: No NormalsPROTEIN, RANDOM [id number] 09:55:00 Test Item Value Reference Range Comments PROTEIN, URINE (BEAKER) (test pxen=9744) 18 mg/dL 0-14 MICROALBUMIN, RANDOM [id number] 09:55:00 Test Item Value Reference Range Comments MICROALBUMIN URINE (BEAKER) (test kvgk=8189) 1.5 mg/dL Reference Range: No NormalsRAD, CHEST, 2 [id number] 09:22:00Reason for Exam :->s/p lung transplantFINAL REPORT INDICATION: s/p lung transplant COMPARISON: February 05, 2018 TECHNIQUE: Frontal and lateral views of the chest. FINDINGS: Lungs and pleura: Clear lungs. Small posterior fusions bilaterally.Heart and mediastinum: Normal heart size. Stable surgical changes.Osseous structures: No acute abnormality.Additional findings: None. IMPRESSION: No acute intrathoracic abnormality. Signed: JR Rizzo Robert MDReport Verified Date/Time: 05/29/2018 09:22:59 Reading Location: [facility] Radiology Reading Room [id number] 09:10:00 Test Item Value Reference Range Comments PROSTATE SPECIFIC ANTIGEN (BEAKER) (test etkf=527) 0.4 ng/mL 0.0-4.0 MALES onlyHEPATITIS PANEL, [id number] 09:10:00 Test Item Value Reference Range Comments HEPATITIS A IGM ANTIBODY (BEAKER) (test Nonreactive Nonreactive rgmh=831) HEPATITIS B CORE IGM ANTIBODY (BEAKER) (test Nonreactive Nonreactive nwlv=541) HEPATITIS C ANTIBODY (BEAKER) (test bmqd=628) Nonreactive Nonreactive HEPATITIS B SURFACE ANTIGEN (2) (BEAKER) (test Nonreactive Nonreactive togx=6062) MALES onlyVITAMIN D, [id number] 09:10:00 Test Item Value Reference Range Comments VITAMIN D 25-OH (BEAKER) (test gomd=0543) 26.8 ng/mL 6.6-49.9 Effective 04/10/2017: Reference Range ChangeNew: 6.6-49.9 ng/mL Previous: 13.0 -47.8 ng/mLRecommended Vitamin D Target Range: 30.0-40.0 ng/mLMALES onlyHIV-1 ANTIGEN WITH HIV-1/2 [id number] 09:10:00 Test Item Value Reference Range Comments HIV-1 ANTIGEN WITH HIV 1\\T\\2 ANTIBODY (2) Nonreactive Nonreactive (BEAKER) (test srro=3689) MALES [id number] 08:48:00 Test Item Value Reference Range Comments PHOSPHORUS (BEAKER) (test cjqp=471) 3.2 mg/dL 2.3-4.7 COMPREHENSIVE METABOLIC [id number] 08:48:00 Test Item Value Reference Range Comments TOTAL PROTEIN (BEAKER) 5.9 gm/dL 6.0-8.3 (test lfhl=921) ALBUMIN (BEAKER) (test 4.2 g/dL 3.5-5.0 hjhm=0051) ALKALINE PHOSPHATASE 361 U/L 40-150 (BEAKER) (test cbkb=991) BILIRUBIN TOTAL (BEAKER) 0.8 mg/dL 0.2-1.2 (test gqct=924) SODIUM (BEAKER) (test 143 meq/L 136-145 mpxv=517) POTASSIUM (BEAKER) (test 5.1 meq/L 3.5-5.1 kmaz=782) CHLORIDE (BEAKER) (test 111 meq/L 98-107 plmo=704) CO2 (BEAKER) (test 23 meq/L 22-29 ceav=036) BLOOD UREA NITROGEN 29 mg/dL 7-21 (BEAKER) (test zgpk=058) CREATININE (BEAKER) (test 1.72 mg/dL 0.57-1.25 noba=175) GLUCOSE RANDOM (BEAKER) 95 mg/dL 70-105 (test rsgt=140) CALCIUM (BEAKER) (test 9.5 mg/dL 8.4-10.2 udbh=426) AST (SGOT) (BEAKER) (test 45 U/L 5-34 kpcj=953) ALT (SGPT) (BEAKER) (test 49 U/L 6-55 fbap=375) EGFR (BEAKER) (test 41 mL/min/1.73 sq m ESTIMATED GFR IS NOT nhzi=8016) ACCURATE CREATININE CLEARANCE IN PREDICTING GLOMERULAR FILTRATION RATE. ESTIMATED GFR IS NOT APPLICABLE FOR DIALYSIS PATIENTS. LIPID [id number] 08:48:00 Test Item Value Reference Range Comments TRIGLYCERIDES (BEAKER) (test xmcj=496) 61 mg/dL CHOLESTEROL (BEAKER) (test fokq=509) 119 mg/dL HDL CHOLESTEROL (BEAKER) (test afzp=932) 37 mg/dL LDL CHOLESTEROL CALCULATED (BEAKER) (test 70 mg/dL pycd=839) Triglyceride Reference Range: Low Risk <150 Borderline 150- 199 High Risk 200-499 Very High Risk >=500Cholesterol Reference Range: Low Risk <200 Borderline 200-239 High Risk > 240HDL Cholesterol Reference Range: Low Risk >=60 High Risk <40LDL Cholesterol Reference Range: Optimal <100 Near Optimal 100-129 Borderline 130-159 High 160-189 Very High >=190LACTATE DEHYDROGENASE (LDH)2018-05-29 08:48:00 Test Item Value Reference Range Comments LACTATE DEHYDROGENASE (BEAKER) (test llnl=100) 200 U/L 125-220 CBC W/PLT COUNT & AUTO [id number] 08:30:00 Test Item Value Reference Range Comments WHITE BLOOD CELL COUNT (BEAKER) (test ywgw=435) 4.3 K/ L 3.5-10.5 RED BLOOD CELL COUNT (BEAKER) (test pute=558) 3.15 M/ L 4.63-6.08 HEMOGLOBIN (BEAKER) (test jymd=854) 9.3 GM/DL 13.7-17.5 HEMATOCRIT (BEAKER) (test xnza=078) 29.8 % 40.1-51.0 MEAN CORPUSCULAR VOLUME (BEAKER) (test mxir=968) 94.6 fL 79.0-92.2 MEAN CORPUSCULAR HEMOGLOBIN (BEAKER) (test 29.5 pg 25.7-32.2 tdli=173) MEAN CORPUSCULAR HEMOGLOBIN CONC (BEAKER) (test 31.2 GM/DL 32.3-36.5 rbjm=070) RED CELL DISTRIBUTION WIDTH (BEAKER) (test 16.9 % 11.6-14.4 hvwe=828) PLATELET COUNT (BEAKER) (test cpwp=941) 98 K/CU MM 150-450 MEAN PLATELET VOLUME (BEAKER) (test pdfg=642) 10.1 fL 9.4-12.4 NUCLEATED RED BLOOD CELLS (BEAKER) (test 0 /100 WBC 0-0 kfvj=457) NEUTROPHILS RELATIVE PERCENT (BEAKER) (test 73 % pzsj=737) LYMPHOCYTES RELATIVE PERCENT (BEAKER) (test 17 % shzl=148) MONOCYTES RELATIVE PERCENT (BEAKER) (test 6 % uklp=622) EOSINOPHILS RELATIVE PERCENT (BEAKER) (test 3 % kofr=499) BASOPHILS RELATIVE PERCENT (BEAKER) (test 1 % ywuv=454) NEUTROPHILS ABSOLUTE COUNT (BEAKER) (test 3.13 K/ L 1.78-5.38 pvdc=016) LYMPHOCYTES ABSOLUTE COUNT (BEAKER) (test 0.72 K/ L 1.32-3.57 rism=988) MONOCYTES ABSOLUTE COUNT (BEAKER) (test fscq=900) 0.27 K/ L 0.30-0.82 EOSINOPHILS ABSOLUTE COUNT (BEAKER) (test 0.12 K/ L 0.04-0.54 ggmf=694) BASOPHILS ABSOLUTE COUNT (BEAKER) (test senv=472) 0.03 K/ L 0.01-0.08 IMMATURE GRANULOCYTES-RELATIVE PERCENT (BEAKER) 0 % 0-1 (test opbt=2311) AFB CULTURE + [id number] 17:58:00 Test Item Value Reference Range Comments CULTURE (BEAKER) (test No acid-fast bacilli isolated jcan=3644) in 42 days AFB SMEAR (BEAKER) (test No acid fast bacilli seen idqr=846) BODY FLUID CULTURE + GRAM [id number] 18:20:00 Test Item Value Reference Range Comments CULTURE (BEAKER) (test snqv=9554) No growth GRAM STAIN RESULT (BEAKER) (test <1+ WBCs yrnf=8320) GRAM STAIN RESULT (BEAKER) (test No organisms seen qdhi=46534) CBC W/PLT COUNT & AUTO [id number] 11:48:00 Test Item Value Reference Range Comments WHITE BLOOD CELL COUNT (BEAKER) (test ejuh=185) 1.9 K/ L 3.5-10.5 RED BLOOD CELL COUNT (BEAKER) (test nuar=918) 2.39 M/ L 4.63-6.08 HEMOGLOBIN (BEAKER) (test bubo=959) 7.0 GM/DL 13.7-17.5 HEMATOCRIT (BEAKER) (test kybc=790) 22.8 % 40.1-51.0 MEAN CORPUSCULAR VOLUME (BEAKER) (test xzxf=616) 95.4 fL 79.0-92.2 MEAN CORPUSCULAR HEMOGLOBIN (BEAKER) (test 29.3 pg 25.7-32.2 wgno=905) MEAN CORPUSCULAR HEMOGLOBIN CONC (BEAKER) (test 30.7 GM/DL 32.3-36.5 swlo=812) RED CELL DISTRIBUTION WIDTH (BEAKER) (test 15.7 % 11.6-14.4 ydyh=938) PLATELET COUNT (BEAKER) (test umin=131) 78 K/CU MM 150-450 MEAN PLATELET VOLUME (BEAKER) (test ahuc=283) 9.7 fL 9.4-12.4 NUCLEATED RED BLOOD CELLS (BEAKER) (test 0 /100 WBC 0-0 mtkh=662) (CELLAVISION MANUAL DIFF)[id number] 11:48:00 Test Item Value Reference Range Comments NEUTROPHILS - REL (CELLAVISION)(BEAKER) (test 64 % unyn=7156) LYMPHOCYTES - REL (CELLAVISION)(BEAKER) (test 30 % dpgh=2914) MONOCYTES - REL (CELLAVISION)(BEAKER) (test 4 % side=5552) EOSINOPHILS - REL (CELLAVISION)(BEAKER) (test 1 % qvkf=6945) BASOPHILS - REL (CELLAVISION)(BEAKER) (test 1 % ovqb=3105) NEUTROPHILS - ABS (CELLAVISION)(BEAKER) (test 1.22 K/ul 1.78-5.38 idpp=1078) LYMPHOCYTES - ABS (CELLAVISION)(BEAKER) (test 0.57 K/ul 1.32-3.57 rtns=8245) MONOCYTES - ABS (CELLAVISION)(BEAKER) (test 0.08 K/uL 0.30-0.82 iqds=2914) EOSINOPHILS - ABS (CELLAVISION)(BEAKER) (test 0.02 K/uL 0.04-0.54 zjhl=8063) BASOPHILS - ABS (CELLAVISION)(BEAKER) (test 0.02 K/uL 0.01-0.08 ymch=8133) TOTAL COUNTED (BEAKER) (test ymqd=2730) 100 WBC MORPHOLOGY (BEAKER) (test kfhk=445) Normal PLT MORPHOLOGY (BEAKER) (test tksf=462) Normal ANISOCYTOSIS (BEAKER) (test zrgm=759) 2+ moderate POIKILOCYTES (BEAKER) (test mjec=347) 2+ moderate ARTIFACT (CELLAVISION)(BEAKER) (test ockl=2399) Present PLATELET CONCENTRATION (CELLAVISION)(BEAKER) Decreased (test ljjm=8218) Received comment: User comments: Slide comments:TACROLIMUS [id number] 09:58 :00 Test Item Value Reference Range Comments TACROLIMUS BLOOD (BEAKER) (test kulm=000) 5.3 ng/mL 10.0-20.0 POCT-GLUCOSE [id number] 08:33:00 Test Item Value Reference Range Comments POC-GLUCOSE METER (BEAKER) 100 mg/dL 70-110 TESTED AT [address] (test xxws=5238) [facility] [address] [id number] 07:13:00 Test Item Value Reference Range Comments MAGNESIUM (BEAKER) (test piyt=726) 1.6 mg/dL 1.6-2.6 COMPREHENSIVE METABOLIC [id number] 07:13:00 Test Item Value Reference Range Comments TOTAL PROTEIN (BEAKER) 4.6 gm/dL 6.0-8.3 (test rvye=707) ALBUMIN (BEAKER) (test 3.2 g/dL 3.5-5.0 aigt=4199) ALKALINE PHOSPHATASE 445 U/L 40-150 (BEAKER) (test ztea=282) BILIRUBIN TOTAL (BEAKER) 0.7 mg/dL 0.2-1.2 (test xitb=109) SODIUM (BEAKER) (test 137 meq/L 136-145 qdrz=684) POTASSIUM (BEAKER) (test 4.9 meq/L 3.5-5.1 fxse=340) CHLORIDE (BEAKER) (test 109 meq/L 98-107 osua=885) CO2 (BEAKER) (test 20 meq/L 22-29 kmos=093) BLOOD UREA NITROGEN 20 mg/dL 7-21 (BEAKER) (test jxol=754) CREATININE (BEAKER) (test 1.09 mg/dL 0.57-1.25 utsa=051) GLUCOSE RANDOM (BEAKER) 88 mg/dL 70-105 (test bjsz=985) CALCIUM (BEAKER) (test 8.4 mg/dL 8.4-10.2 xfwc=633) AST (SGOT) (BEAKER) (test 30 U/L 5-34 hcje=106) ALT (SGPT) (BEAKER) (test 28 U/L 6-55 begt=157) EGFR (BEAKER) (test 69 mL/min/1.73 sq m ESTIMATED GFR IS NOT vkrk=2635) ACCURATE CREATININE CLEARANCE IN PREDICTING GLOMERULAR FILTRATION RATE. ESTIMATED GFR IS NOT APPLICABLE FOR DIALYSIS PATIENTS. BODY FLUID CELL COUNT WITH [id number] 17:27:00 Test Item Value Reference Range Comments APPEARANCE FLUID (BEAKER) (test naft=206) Cloudy Clear COLOR FLUID (BEAKER) (test kugn=427) Yellow Colorless, Straw RBC FLUID (BEAKER) (test snwp=974) 90 /cu mm <=1 ADJUSTED WBC FLUID (BEAKER) (test immu=7219) 250 /cu mm <=5 LINING CELLS (BEAKER) (test fdyy=9430) 0 /cu mm <=1 NEUTROPHILS FLUID (BEAKER) (test pjit=0379) 20 % LYMPHS FLUID (BEAKER) (test fghu=956) 70 % MONO/MACROPHAGE FLUID (BEAKER) (test pvkz=872) 10 % EOSINOPHILS FLUID (BEAKER) (test ftyg=651) 0 % BASO FLUID (BEAKER) (test imjn=437) 0 % CONTAINER BODY FLUID (BEAKER) (test nqpp=5210) EDTA Tube PROTEIN, BODY [id number] 17:03:00 Test Item Value Reference Range Comments PROTEIN FLUID (BEAKER) (test znvg=967) 1.2 g/dL Absence of reference range indicates that normals have not been defined.Assay performance has not been validated for this type of specimen.ascitesascitesGLUCOSE, BODY [id number] 17:03:00 Test Item Value Reference Range Comments GLUCOSE, BODY FLUID (BEAKER) (test ajmj=5000) 92 mg/dL Absence of reference range indicates that normals have not been defined.Assay performance has not been validated for this type of specimen.ascitesascitesTACROLIMUS [id number] 15:07:00 Test Item Value Reference Range Comments TACROLIMUS BLOOD (BEAKER) (test csnm=980) 7.7 ng/mL 10.0-20.0 VITAMIN B12 AND [id number] 14:40:00 Test Item Value Reference Range Comments VITAMIN B12 (BEAKER) (test bkwz=980) 714 pg/mL 213-816 FOLATE (BEAKER) (test vngr=314) 13.4 ng/mL >=7.0 IMMUNOGLOBULIN G (IGG)[id number] 14:19:00 Test Item Value Reference Range Comments IMMUNOGLOBULIN G (IGG) (BEAKER) (test efnd=910) 133 mg/dL 540-1822 POCT-GLUCOSE [id number] 13:31:00 Test Item Value Reference Range Comments POC-GLUCOSE METER (BEAKER) 149 mg/dL 70-110 TESTED AT [facility] [address] [place] [address] (test ksij=9062) [facility] [address] U/S, [id number] 11:08:00Reason for exam:->ABDOMINAL PAINFINAL REPORT HISTORY : Ascites Comment : The procedure, including the risks and complications of the procedure, were explained to the patient and the patient consented. A pocketof fluid was identified in the right lower quadrant of the abdomen. This area was marked. The area was prepped and draped in the usual sterile fashion. 1% lidocaine was applied to the skin and deep soft tissues. A 5 Italian multi-sidehole catheter was inserted and removed from the peritoneal space and approximately 3.1 liters of clear yellow fluid was aspirated from the abdomen. Specimens were collected for the lab. There were no immediate complications. Impression: Successful ultrasound guided paracentesis with aspiration of 3.1 liters of fluid. Signed: Javed Paezort Verified Date/Time: 02/05/2018 11:08:13 Reading Location: [facility] [id number] Ultrasound Reading Room Electronically signedby: JAVED PAEZ MD on 02/05/2018 11:08 AMCBC W/PLT COUNT & AUTO [id number] 09:16:00 Test Item Value Reference Range Comments WHITE BLOOD CELL COUNT (BEAKER) (test ttba=042) 2.6 K/ L 3.5-10.5 RED BLOOD CELL COUNT (BEAKER) (test gmjx=513) 2.44 M/ L 4.63-6.08 HEMOGLOBIN (BEAKER) (test artz=171) 7.3 GM/DL 13.7-17.5 HEMATOCRIT (BEAKER) (test buqi=963) 23.8 % 40.1-51.0 MEAN CORPUSCULAR VOLUME (BEAKER) (test srpr=823) 97.5 fL 79.0-92.2 MEAN CORPUSCULAR HEMOGLOBIN (BEAKER) (test 29.9 pg 25.7-32.2 noyh=151) MEAN CORPUSCULAR HEMOGLOBIN CONC (BEAKER) (test 30.7 GM/DL 32.3-36.5 efdz=590) RED CELL DISTRIBUTION WIDTH (BEAKER) (test 15.9 % 11.6-14.4 thic=709) PLATELET COUNT (BEAKER) (test hvre=870) 82 K/CU MM 150-450 MEAN PLATELET VOLUME (BEAKER) (test szcv=631) 10.1 fL 9.4-12.4 NUCLEATED RED BLOOD CELLS (BEAKER) (test 0 /100 WBC 0-0 tzue=892) NEUTROPHILS RELATIVE PERCENT (BEAKER) (test 53 % uoim=730) LYMPHOCYTES RELATIVE PERCENT (BEAKER) (test 35 % kcoh=989) MONOCYTES RELATIVE PERCENT (BEAKER) (test 9 % oeqg=789) EOSINOPHILS RELATIVE PERCENT (BEAKER) (test 2 % ikhl=515) BASOPHILS RELATIVE PERCENT (BEAKER) (test 0 % xodo=150) NEUTROPHILS ABSOLUTE COUNT (BEAKER) (test 1.38 K/ L 1.78-5.38 cfth=937) LYMPHOCYTES ABSOLUTE COUNT (BEAKER) (test 0.91 K/ L 1.32-3.57 kkow=498) MONOCYTES ABSOLUTE COUNT (BEAKER) (test fyxb=649) 0.24 K/ L 0.30-0.82 EOSINOPHILS ABSOLUTE COUNT (BEAKER) (test 0.04 K/ L 0.04-0.54 gfoh=643) BASOPHILS ABSOLUTE COUNT (BEAKER) (test zfbp=552) 0.01 K/ L 0.01-0.08 IMMATURE GRANULOCYTES-RELATIVE PERCENT (BEAKER) 0 % 0-1 (test mino=2050) TROPONIN [id number] 09:11:00 Test Item Value Reference Range Comments TROPONIN I (BEAKER) (test auzl=507) < ng/mL 0.00-0.03 Troponin I (TnI) levels must be interpreted in the context of the presenting symptoms and the clinical findings. Elevated TnI levels indicate myocardial damage, but are not specific for ischemic heart disease. Elevated TnI levels are seen in patients with other cardiac conditions (including myocarditis and congestive heart failure), and slight TnI elevations occur in patients with other conditions, including sepsis, renal failure, acidosis, acute neurological disease, and persistent tachyarrhythmia.B-TYPE NATRIURETIC FACTOR (BNP) 09:10:00 Test Item Value Reference Range Comments B-TYPE NATRIURETIC PEPTIDE (BEAKER) (test 353 pg/mL 0-100 jdlm=132) [id number] 09:04:00 Test Item Value Reference Range Comments MAGNESIUM (BEAKER) (test wlwj=219) 1.7 mg/dL 1.6-2.6 BASIC METABOLIC [id number] 09:04:00 Test Item Value Reference Range Comments SODIUM (BEAKER) (test 140 meq/L 136-145 ndrd=110) POTASSIUM (BEAKER) (test 4.8 meq/L 3.5-5.1 wjnm=518) CHLORIDE (BEAKER) (test 111 meq/L 98-107 rtbp=142) CO2 (BEAKER) (test 23 meq/L 22-29 qgof=943) BLOOD UREA NITROGEN 21 mg/dL 7-21 (BEAKER) (test gscn=962) CREATININE (BEAKER) (test 1.17 mg/dL 0.57-1.25 pkqf=172) GLUCOSE RANDOM (BEAKER) 83 mg/dL 70-105 (test ayvo=517) CALCIUM (BEAKER) (test 8.9 mg/dL 8.4-10.2 rrlu=150) EGFR (BEAKER) (test 64 mL/min/1.73 sq m ESTIMATED GFR IS NOT qvyu=5690) ACCURATE CREATININE CLEARANCE IN PREDICTING GLOMERULAR FILTRATION RATE. ESTIMATED GFR IS NOT APPLICABLE FOR DIALYSIS PATIENTS. HEPATIC FUNCTION [id number] 09:04:00 Test Item Value Reference Range Comments TOTAL PROTEIN (BEAKER) (test goxa=846) 4.9 gm/dL 6.0-8.3 ALBUMIN (BEAKER) (test sckp=0584) 3.3 g/dL 3.5-5.0 BILIRUBIN TOTAL (BEAKER) (test bnbx=078) 0.5 mg/dL 0.2-1.2 BILIRUBIN DIRECT (BEAKER) (test pvbd=457) 0.3 mg/dL 0.1-0.5 ALKALINE PHOSPHATASE (BEAKER) (test iirp=297) 480 U/L 40-150 AST (SGOT) (BEAKER) (test rcct=525) 39 U/L 5-34 ALT (SGPT) (BEAKER) (test wixt=727) 38 U/L 6-55 [id number] 09:04:00 Test Item Value Reference Range Comments AMYLASE (BEAKER) (test enhg=378) 79 U/L 25-125 [id number] 09:04:00 Test Item Value Reference Range Comments LIPASE (BEAKER) (test xyjz=813) 36 U/L 8-78 [id number] 08:54:00 Test Item Value Reference Range Comments PROTIME (BEAKER) (test jscr=262) 16.7 seconds 11.7-14.7 INR (BEAKER) (test blyh=348) 1.4 <=5.9 PARTIAL THROMBOPLASTIN TIME (BEAKER) (test 34.6 seconds 22.5-36.0 rwwk=483) RECOMMENDED COUMADIN/WARFARIN INR THERAPY RANGESSTANDARD DOSE: 2.0 - 3.0 Includes: PROPHYLAXIS forvenous thrombosis, systemic embolization; TREATMENT for venous thrombosis and/or pulmonary embolus.HIGH RISK: Target INR is 2.5-3.5 for patients with mechanical heart valves.RAD, CHEST, 1 VIEW, NON [id number] 07:45:00Reason for exam:->chest painFINAL REPORT Chest one view AP 02/05/2018 7:45 AM CLINICAL INDICATION: chest pain COMPARISON: IMPRESSION: There are trace bilateral pleural effusions with adjacent basilar atelectasis. Cardiomediastinal contours are within normal limits. The central pulmonary vasculatureis not engorged. Sternotomy wires remain midline. Signed: Jacob Craven Verified Date/Time: 02/05/2018 07:45:26 Reading Location: [place] [id number] Neuro Reading Room FUNGUS CULTURE + [id number] 12:31:00 Test Item Value Reference Range Comments CULTURE (BEAKER) (test No fungus isolated in 28 days pgua=0965) FUNGUS SMEAR (BEAKER) (test No fungi seen zxws=1411) VIRUS [id number] 12:15:00 Test Item Value Reference Range Comments CULTURE (BEAKER) (test izui=0241) No virus isolated CMV PCR, [id number] 14:49:00 Test Item Value Reference Range Comments CMV VIRAL LOAD - NEGATIVE Negative or below the linear (BEAKER) (test horc=0795) range of the assay (<375 copies/mL) Cytomegalovirus (CMV) infection can cause significant disease in immunosuppressed patients. However,it is common for CMV to manifest as a limited infection which is of no clinical significance in immunosuppressed patients or in healthy individuals.Viral load measurements are helpful to identify clinical CMV infection and to guide the pre-emptive management of antiviral therapy. For treatment of CMVinfection due to reactivation in transplant recipients, a threshold between 4,000 and 5,000 copies/mL is suggested. For treatment of primary CMV infection, a lower threshold can be used.CMV infection may also be monitored using weekly serial measurements. Serial measurements of CMV DNA viral load canbe evaluated by identifying a 10- fold change, as well as assessing the CMV DNA viral load and the clinical context for each patient.The plasma CMV DNA viral load was detected using quantitative polymerase chain reaction and fluorescent monitoring of a specific hybridized probe. Genetic variation and other factors can affect the accuracy of nucleic acid testing. Therefore, the results should be interpreted in light of clinical data. A negative result may not exclude the presence of CMV disease.This test was developed and its performance characteristics determined by the [facility] Pathology Department, Section of Molecular Pathology. It has not been cleared or approved by the U.S. Food and Drug Administration (FDA), since FDA approval is not required for clinical use of the test. Validation was done as required by The Clinical Laboratory Improvement Amendments of 1988.TACROLIMUS [id number] 12:09:00 Test Item Value Reference Range Comments TACROLIMUS BLOOD (BEAKER) (test unam=662) 3.9 ng/mL 10.0-20.0 POCT-GLUCOSE [id number] 11:51:00 Test Item Value Reference Range Comments POC-GLUCOSE METER (BEAKER) 121 mg/dL 70-110 TESTED AT [facility] [address] [facility] (test kxmt=3206) [facility] [address] RAD, CHEST, 1 VIEW, NON [id number] 08:39:00Reason for exam:->Follow-up respiratory failureShould this be performed at the bedside?->YesFINAL REPORT Chest one view compared to January 07, 2018 Discussion: Moderately improved bilateral airspace opacities. Right PICC line in place. No gross effusion or pneumothorax. Signed: Raul Callejas Verified Date/Time : 01/13/2018 08:39:15 Reading Location: [facility] Reading Room HEPATIC FUNCTION [id number] 07:13:00 Test Item Value Reference Range Comments TOTAL PROTEIN (BEAKER) (test cmpm=629) 4.2 gm/dL 6.0-8.3 ALBUMIN (BEAKER) (test jfxi=8568) 2.8 g/dL 3.5-5.0 BILIRUBIN TOTAL (BEAKER) (test xmtg=806) 1.1 mg/dL 0.2-1.2 BILIRUBIN DIRECT (BEAKER) (test ydbd=940) 0.6 mg/dL 0.1-0.5 ALKALINE PHOSPHATASE (BEAKER) (test gstm=105) 241 U/L 40-150 AST (SGOT) (BEAKER) (test mdls=280) 56 U/L 5-34 ALT (SGPT) (BEAKER) (test pgxn=279) 55 U/L 6-55 BASIC METABOLIC [id number] 07:13:00 Test Item Value Reference Range Comments SODIUM (BEAKER) (test 142 meq/L 136-145 qyrh=252) POTASSIUM (BEAKER) (test 3.7 meq/L 3.5-5.1 kypy=784) CHLORIDE (BEAKER) (test 109 meq/L 98-107 vrph=326) CO2 (BEAKER) (test 26 meq/L 22-29 zjqa=427) BLOOD UREA NITROGEN 54 mg/dL 7-21 (BEAKER) (test nfnx=251) CREATININE (BEAKER) (test 1.25 mg/dL 0.57-1.25 dxwq=437) GLUCOSE RANDOM (BEAKER) 76 mg/dL 70-105 (test bmha=941) CALCIUM (BEAKER) (test 8.3 mg/dL 8.4-10.2 zxem=954) EGFR (BEAKER) (test 59 mL/min/1.73 sq m ESTIMATED GFR IS NOT tjgq=8494) ACCURATE CREATININE CLEARANCE IN PREDICTING GLOMERULAR FILTRATION RATE. ESTIMATED GFR IS NOT APPLICABLE FOR DIALYSIS PATIENTS. PT/[id number] 06:52:00 Test Item Value Reference Range Comments PROTIME (BEAKER) (test cylz=239) 17.3 seconds 11.7-14.7 INR (BEAKER) (test jdmg=924) 1.4 <=5.9 PARTIAL THROMBOPLASTIN TIME (BEAKER) (test 33.4 seconds 22.5-36.0 nhuu=907) RECOMMENDED COUMADIN/WARFARIN INR THERAPY RANGESSTANDARD DOSE: 2.0 - 3.0 Includes: PROPHYLAXIS forvenous thrombosis, systemic embolization; TREATMENT for venous thrombosis and/or pulmonary embolus.HIGH RISK: Target INR is 2.5-3.5 for patients with mechanical heart valves.CBC W/PLT COUNT & AUTO [id number] 06:45:00 Test Item Value Reference Range Comments WHITE BLOOD CELL COUNT (BEAKER) (test hnlh=857) 3.6 K/ L 3.5-10.5 RED BLOOD CELL COUNT (BEAKER) (test bchm=371) 2.41 M/ L 4.63-6.08 HEMOGLOBIN (BEAKER) (test nsgs=476) 7.3 GM/DL 13.7-17.5 HEMATOCRIT (BEAKER) (test oeni=616) 24.1 % 40.1-51.0 MEAN CORPUSCULAR VOLUME (BEAKER) (test ucyp=191) 100.0 fL 79.0-92.2 MEAN CORPUSCULAR HEMOGLOBIN (BEAKER) (test 30.3 pg 25.7-32.2 seol=838) MEAN CORPUSCULAR HEMOGLOBIN CONC (BEAKER) (test 30.3 GM/DL 32.3-36.5 iops=724) RED CELL DISTRIBUTION WIDTH (BEAKER) (test 16.7 % 11.6-14.4 xqfh=367) PLATELET COUNT (BEAKER) (test rjyl=691) 95 K/CU MM 150-450 MEAN PLATELET VOLUME (BEAKER) (test kigs=015) 11.3 fL 9.4-12.4 NUCLEATED RED BLOOD CELLS (BEAKER) (test 0 /100 WBC 0-0 takl=728) NEUTROPHILS RELATIVE PERCENT (BEAKER) (test 71 % kmti=731) LYMPHOCYTES RELATIVE PERCENT (BEAKER) (test 19 % ymyj=697) MONOCYTES RELATIVE PERCENT (BEAKER) (test 7 % wppv=163) EOSINOPHILS RELATIVE PERCENT (BEAKER) (test 1 % mmqm=201) BASOPHILS RELATIVE PERCENT (BEAKER) (test 1 % xgyk=746) NEUTROPHILS ABSOLUTE COUNT (BEAKER) (test 2.55 K/ L 1.78-5.38 yler=943) LYMPHOCYTES ABSOLUTE COUNT (BEAKER) (test 0.68 K/ L 1.32-3.57 tcfm=939) MONOCYTES ABSOLUTE COUNT (BEAKER) (test ofbk=701) 0.26 K/ L 0.30-0.82 EOSINOPHILS ABSOLUTE COUNT (BEAKER) (test 0.04 K/ L 0.04-0.54 oyfn=084) BASOPHILS ABSOLUTE COUNT (BEAKER) (test vpzo=551) 0.02 K/ L 0.01-0.08 IMMATURE GRANULOCYTES-RELATIVE PERCENT (BEAKER) 1 % 0-1 (test hvit=4611) POCT-GLUCOSE [id number] 22:11:00 Test Item Value Reference Range Comments POC-GLUCOSE METER (BEAKER) 165 mg/dL 70-110 TESTED AT [facility] [address] [facility] (test hsct=6977) [facility] [address] C. DIFFICILE GDH [id number] 16:06:00 Test Item Value Reference Range Comments CDT TOXIN (test Negative Negative ykrq=[id number]) CDT GDH ANTIGEN (test Negative Negative No indication of Clostridium ozgj=[id number]) difficile infection and no colonization. Discontinue enteric isolation and therapy. Testing performed by [employer] Rapid Cassette Assay. For GDH, published sensitivity of the assay is 98.7% compared to cytotoxicity testing. For Toxin AB, published sensitivity is 87.8% and specificity 99.4% compared to cytotoxicity testing.Verification of kit performance was done by the [facility] Microbiology Lab prior to clinical use.TACROLIMUS [id number] 10:30:00 Test Item Value Reference Range Comments TACROLIMUS BLOOD (BEAKER) (test mkwl=868) 2.7 ng/mL 10.0-20.0 [id number] 07:37:00 Test Item Value Reference Range Comments PHOSPHORUS (BEAKER) (test otkn=860) 4.1 mg/dL 2.3-4.7 BASIC METABOLIC [id number] 07:37:00 Test Item Value Reference Range Comments SODIUM (BEAKER) (test 143 meq/L 136-145 syns=747) POTASSIUM (BEAKER) (test 4.0 meq/L 3.5-5.1 unds=483) CHLORIDE (BEAKER) (test 106 meq/L 98-107 pnvw=718) CO2 (BEAKER) (test 25 meq/L 22-29 xdup=386) BLOOD UREA NITROGEN 65 mg/dL 7-21 (BEAKER) (test zlzq=187) CREATININE (BEAKER) (test 1.39 mg/dL 0.57-1.25 yybp=152) GLUCOSE RANDOM (BEAKER) 83 mg/dL 70-105 (test rbcj=844) CALCIUM (BEAKER) (test 8.2 mg/dL 8.4-10.2 ysly=687) EGFR (BEAKER) (test 52 mL/min/1.73 sq m ESTIMATED GFR IS NOT xzos=4612) ACCURATE CREATININE CLEARANCE IN PREDICTING GLOMERULAR FILTRATION RATE. ESTIMATED GFR IS NOT APPLICABLE FOR DIALYSIS PATIENTS. POCT-GLUCOSE [id number] 07:30:00 Test Item Value Reference Range Comments POC-GLUCOSE METER (BEAKER) 103 mg/dL 70-110 TESTED AT [facility] [address] (test qllx=1450) [facility] [address] CBC W/PLT COUNT & AUTO [id number] 07:16:00 Test Item Value Reference Range Comments WHITE BLOOD CELL COUNT (BEAKER) (test tymt=020) 4.0 K/ L 3.5-10.5 RED BLOOD CELL COUNT (BEAKER) (test aovk=650) 2.51 M/ L 4.63-6.08 HEMOGLOBIN (BEAKER) (test lgqz=314) 7.6 GM/DL 13.7-17.5 HEMATOCRIT (BEAKER) (test tmrh=498) 25.1 % 40.1-51.0 MEAN CORPUSCULAR VOLUME (BEAKER) (test mthk=380) 100.0 fL 79.0-92.2 MEAN CORPUSCULAR HEMOGLOBIN (BEAKER) (test 30.3 pg 25.7-32.2 lrsr=966) MEAN CORPUSCULAR HEMOGLOBIN CONC (BEAKER) (test 30.3 GM/DL 32.3-36.5 enyt=288) RED CELL DISTRIBUTION WIDTH (BEAKER) (test 16.9 % 11.6-14.4 vkuy=691) PLATELET COUNT (BEAKER) (test hscc=777) 102 K/CU MM 150-450 MEAN PLATELET VOLUME (BEAKER) (test tliu=365) 11.0 fL 9.4-12.4 NUCLEATED RED BLOOD CELLS (BEAKER) (test 0 /100 WBC 0-0 adql=682) NEUTROPHILS RELATIVE PERCENT (BEAKER) (test 74 % bcnd=462) LYMPHOCYTES RELATIVE PERCENT (BEAKER) (test 17 % firu=895) MONOCYTES RELATIVE PERCENT (BEAKER) (test 7 % xwoq=749) EOSINOPHILS RELATIVE PERCENT (BEAKER) (test 1 % azan=500) BASOPHILS RELATIVE PERCENT (BEAKER) (test 1 % cmho=426) NEUTROPHILS ABSOLUTE COUNT (BEAKER) (test 2.98 K/ L 1.78-5.38 xfph=480) LYMPHOCYTES ABSOLUTE COUNT (BEAKER) (test 0.67 K/ L 1.32-3.57 ywfh=890) MONOCYTES ABSOLUTE COUNT (BEAKER) (test 0.28 K/ L 0.30-0.82 lbft=772) EOSINOPHILS ABSOLUTE COUNT (BEAKER) (test 0.03 K/ L 0.04-0.54 dhkv=714) BASOPHILS ABSOLUTE COUNT (BEAKER) (test 0.03 K/ L 0.01-0.08 qxwx=241) IMMATURE GRANULOCYTES-RELATIVE PERCENT (BEAKER) 1 % 0-1 (test neug=7245) POCT-GLUCOSE [id number] 21:04:00 Test Item Value Reference Range Comments POC-GLUCOSE METER (BEAKER) 161 mg/dL 70-110 TESTED AT [facility] [address] (test twwb=2471) [facility] [address] TACROLIMUS [id number] 10:37:00 Test Item Value Reference Range Comments TACROLIMUS BLOOD (BEAKER) (test vozp=681) 3.4 ng/mL 10.0-20.0 [id number] 07:21:00 Test Item Value Reference Range Comments PHOSPHORUS (BEAKER) (test echa=427) 5.3 mg/dL 2.3-4.7 BASIC METABOLIC [id number] 07:21:00 Test Item Value Reference Range Comments SODIUM (BEAKER) (test 145 meq/L 136-145 wuwd=192) POTASSIUM (BEAKER) (test 3.9 meq/L 3.5-5.1 cshg=566) CHLORIDE (BEAKER) (test 105 meq/L 98-107 aosz=270) CO2 (BEAKER) (test 29 meq/L 22-29 tend=877) BLOOD UREA NITROGEN 78 mg/dL 7-21 (BEAKER) (test xakj=137) CREATININE (BEAKER) (test 1.74 mg/dL 0.57-1.25 fwjn=475) GLUCOSE RANDOM (BEAKER) 110 mg/dL 70-105 (test ztnk=458) CALCIUM (BEAKER) (test 7.8 mg/dL 8.4-10.2 zmur=680) EGFR (BEAKER) (test 40 mL/min/1.73 sq m ESTIMATED GFR IS NOT pbfw=9814) ACCURATE CREATININE CLEARANCE IN PREDICTING GLOMERULAR FILTRATION RATE. ESTIMATED GFR IS NOT APPLICABLE FOR DIALYSIS PATIENTS. CBC W/PLT COUNT & AUTO [id number] 07:03:00 Test Item Value Reference Range Comments WHITE BLOOD CELL COUNT (BEAKER) (test msdu=935) 3.0 K/ L 3.5-10.5 RED BLOOD CELL COUNT (BEAKER) (test snyy=840) 2.53 M/ L 4.63-6.08 HEMOGLOBIN (BEAKER) (test nios=535) 7.8 GM/DL 13.7-17.5 HEMATOCRIT (BEAKER) (test dore=003) 25.3 % 40.1-51.0 MEAN CORPUSCULAR VOLUME (BEAKER) (test oxlq=983) 100.0 fL 79.0-92.2 MEAN CORPUSCULAR HEMOGLOBIN (BEAKER) (test 30.8 pg 25.7-32.2 wkkb=729) MEAN CORPUSCULAR HEMOGLOBIN CONC (BEAKER) (test 30.8 GM/DL 32.3-36.5 haoi=574) RED CELL DISTRIBUTION WIDTH (BEAKER) (test 17.3 % 11.6-14.4 hokc=456) PLATELET COUNT (BEAKER) (test pjia=864) 109 K/CU MM 150-450 MEAN PLATELET VOLUME (BEAKER) (test bhkb=788) 11.3 fL 9.4-12.4 NUCLEATED RED BLOOD CELLS (BEAKER) (test 0 /100 WBC 0-0 xbxe=768) NEUTROPHILS RELATIVE PERCENT (BEAKER) (test 69 % ofev=410) LYMPHOCYTES RELATIVE PERCENT (BEAKER) (test 22 % scex=055) MONOCYTES RELATIVE PERCENT (BEAKER) (test 8 % mflz=910) EOSINOPHILS RELATIVE PERCENT (BEAKER) (test 1 % gbsj=125) BASOPHILS RELATIVE PERCENT (BEAKER) (test 1 % qpyr=788) NEUTROPHILS ABSOLUTE COUNT (BEAKER) (test 2.08 K/ L 1.78-5.38 ywdd=184) LYMPHOCYTES ABSOLUTE COUNT (BEAKER) (test 0.66 K/ L 1.32-3.57 xnlf=449) MONOCYTES ABSOLUTE COUNT (BEAKER) (test 0.23 K/ L 0.30-0.82 qguo=730) EOSINOPHILS ABSOLUTE COUNT (BEAKER) (test 0.03 K/ L 0.04-0.54 ffmr=766) BASOPHILS ABSOLUTE COUNT (BEAKER) (test 0.02 K/ L 0.01-0.08 iadw=095) IMMATURE GRANULOCYTES-RELATIVE PERCENT (BEAKER) 0 % 0-1 (test wiwm=4648) POCT-GLUCOSE [id number] 17:24:00 Test Item Value Reference Range Comments POC-GLUCOSE METER (BEAKER) 178 mg/dL 70-110 TESTED AT [facility] [address] [facility] (test mbbx=7351) [facility] [address] [place] [id number] 12:24:00 Test Item Value Reference Range Comments TACROLIMUS BLOOD (BEAKER) (test amow=346) 4.3 ng/mL 10.0-20.0 POCT-GLUCOSE [id number] 09:17:00 Test Item Value Reference Range Comments POC-GLUCOSE METER (BEAKER) 162 mg/dL 70-110 TESTED AT [facility] [address] [facility] (test oyvp=6964) [place] [address] CBC W/PLT COUNT & AUTO [id number] 07:36:00 Test Item Value Reference Range Comments WHITE BLOOD CELL COUNT (BEAKER) (test nibz=534) 4.9 K/ L 3.5-10.5 RED BLOOD CELL COUNT (BEAKER) (test bbay=480) 2.47 M/ L 4.63-6.08 HEMOGLOBIN (BEAKER) (test fpsq=635) 7.7 GM/DL 13.7-17.5 HEMATOCRIT (BEAKER) (test ebdl=466) 24.1 % 40.1-51.0 MEAN CORPUSCULAR VOLUME (BEAKER) (test aubo=605) 97.6 fL 79.0-92.2 MEAN CORPUSCULAR HEMOGLOBIN (BEAKER) (test 31.2 pg 25.7-32.2 hkas=410) MEAN CORPUSCULAR HEMOGLOBIN CONC (BEAKER) (test 32.0 GM/DL 32.3-36.5 oger=247) RED CELL DISTRIBUTION WIDTH (BEAKER) (test 17.4 % 11.6-14.4 yjpl=192) PLATELET COUNT (BEAKER) (test xydk=694) 100 K/CU MM 150-450 MEAN PLATELET VOLUME (BEAKER) (test itga=854) 11.5 fL 9.4-12.4 NUCLEATED RED BLOOD CELLS (BEAKER) (test 0 /100 WBC 0-0 tyou=687) NEUTROPHILS RELATIVE PERCENT (BEAKER) (test 72 % aynp=550) LYMPHOCYTES RELATIVE PERCENT (BEAKER) (test 18 % bvbd=036) MONOCYTES RELATIVE PERCENT (BEAKER) (test 9 % xysd=753) EOSINOPHILS RELATIVE PERCENT (BEAKER) (test 1 % vwnc=968) BASOPHILS RELATIVE PERCENT (BEAKER) (test 0 % wpdc=862) NEUTROPHILS ABSOLUTE COUNT (BEAKER) (test 3.48 K/ L 1.78-5.38 ajgl=174) LYMPHOCYTES ABSOLUTE COUNT (BEAKER) (test 0.86 K/ L 1.32-3.57 wknn=783) MONOCYTES ABSOLUTE COUNT (BEAKER) (test 0.45 K/ L 0.30-0.82 boda=985) EOSINOPHILS ABSOLUTE COUNT (BEAKER) (test 0.04 K/ L 0.04-0.54 bwjn=138) BASOPHILS ABSOLUTE COUNT (BEAKER) (test 0.01 K/ L 0.01-0.08 sqxu=497) IMMATURE GRANULOCYTES-RELATIVE PERCENT (BEAKER) 1 % 0-1 (test rvoj=7379) BASIC METABOLIC [id number] 06:41:00 Test Item Value Reference Range Comments SODIUM (BEAKER) (test 143 meq/L 136-145 ovcg=924) POTASSIUM (BEAKER) (test 3.8 meq/L 3.5-5.1 wnej=760) CHLORIDE (BEAKER) (test 104 meq/L 98-107 jegz=460) CO2 (BEAKER) (test 25 meq/L 22-29 lbth=507) BLOOD UREA NITROGEN 86 mg/dL 7-21 (BEAKER) (test iffl=374) CREATININE (BEAKER) (test 2.14 mg/dL 0.57-1.25 auoj=771) GLUCOSE RANDOM (BEAKER) 104 mg/dL 70-105 (test bilx=328) CALCIUM (BEAKER) (test 7.5 mg/dL 8.4-10.2 erjy=199) EGFR (BEAKER) (test 32 mL/min/1.73 sq m ESTIMATED GFR IS NOT firw=5574) ACCURATE CREATININE CLEARANCE IN PREDICTING GLOMERULAR FILTRATION RATE. ESTIMATED GFR IS NOT APPLICABLE FOR DIALYSIS PATIENTS. [id number] 06:39:00 Test Item Value Reference Range Comments PHOSPHORUS (BEAKER) (test loxx=172) 6.1 mg/dL 2.3-4.7 LEGIONELLA [id number] 04:55:00 Test Item Value Reference Range Comments CULTURE (BEAKER) (test No Legionella species isolated zamb=9615) POCT-GLUCOSE [id number] 21:37:00 Test Item Value Reference Range Comments POC-GLUCOSE METER (BEAKER) 174 mg/dL 70-110 TESTED AT [facility] [address] [facility] (test jwyk=2370) [facility] [address] POCT-GLUCOSE [id number] 18:18:00 Test Item Value Reference Range Comments POC-GLUCOSE METER (BEAKER) 230 mg/dL 70-110 TESTED AT [facility] [address] [facility] (test pkop=1341) [facility] [address] POCT-GLUCOSE [id number] 13:15:00 Test Item Value Reference Range Comments POC-GLUCOSE METER (BEAKER) 104 mg/dL 70-110 TESTED AT [address] (test shkz=0620) [facility] [address] [place] [id number] 11:40:00 Test Item Value Reference Range Comments TACROLIMUS BLOOD (BEAKER) (test tsvz=642) 4.3 ng/mL 10.0-20.0 POCT-GLUCOSE [id number] 09:28:00 Test Item Value Reference Range Comments POC-GLUCOSE METER (BEAKER) 206 mg/dL 70-110 TESTED AT [address] (test yojc=3283) [place] [id number] BASIC METABOLIC [id number] 07:44:00 Test Item Value Reference Range Comments SODIUM (BEAKER) (test 139 meq/L 136-145 iais=121) POTASSIUM (BEAKER) (test 4.0 meq/L 3.5-5.1 xopf=521) CHLORIDE (BEAKER) (test 103 meq/L 98-107 qkho=236) CO2 (BEAKER) (test 25 meq/L 22-29 oiwf=466) BLOOD UREA NITROGEN 83 mg/dL 7-21 (BEAKER) (test usiw=983) CREATININE (BEAKER) (test 2.43 mg/dL 0.57-1.25 nuhq=380) GLUCOSE RANDOM (BEAKER) 116 mg/dL 70-105 (test nidz=759) CALCIUM (BEAKER) (test 7.6 mg/dL 8.4-10.2 qgkx=309) EGFR (BEAKER) (test 27 mL/min/1.73 sq m ESTIMATED GFR IS NOT kuxc=7965) ACCURATE CREATININE CLEARANCE IN PREDICTING GLOMERULAR FILTRATION RATE. ESTIMATED GFR IS NOT APPLICABLE FOR DIALYSIS PATIENTS. CBC W/PLT COUNT & AUTO [id number] 06:46:00 Test Item Value Reference Range Comments WHITE BLOOD CELL COUNT (BEAKER) (test gcwt=243) 4.4 K/ L 3.5-10.5 RED BLOOD CELL COUNT (BEAKER) (test cwdw=987) 2.44 M/ L 4.63-6.08 HEMOGLOBIN (BEAKER) (test slts=014) 7.4 GM/DL 13.7-17.5 HEMATOCRIT (BEAKER) (test fnwq=854) 23.8 % 40.1-51.0 MEAN CORPUSCULAR VOLUME (BEAKER) (test heuu=982) 97.5 fL 79.0-92.2 MEAN CORPUSCULAR HEMOGLOBIN (BEAKER) (test 30.3 pg 25.7-32.2 bjji=600) MEAN CORPUSCULAR HEMOGLOBIN CONC (BEAKER) (test 31.1 GM/DL 32.3-36.5 tnoa=862) RED CELL DISTRIBUTION WIDTH (BEAKER) (test 17.5 % 11.6-14.4 nhco=975) PLATELET COUNT (BEAKER) (test zioi=612) 95 K/CU MM 150-450 MEAN PLATELET VOLUME (BEAKER) (test algc=720) 11.4 fL 9.4-12.4 NUCLEATED RED BLOOD CELLS (BEAKER) (test 0 /100 WBC 0-0 eqjm=989) NEUTROPHILS RELATIVE PERCENT (BEAKER) (test 72 % yozi=357) LYMPHOCYTES RELATIVE PERCENT (BEAKER) (test 16 % skey=042) MONOCYTES RELATIVE PERCENT (BEAKER) (test 10 % xaer=895) EOSINOPHILS RELATIVE PERCENT (BEAKER) (test 1 % lttp=466) BASOPHILS RELATIVE PERCENT (BEAKER) (test 0 % arpr=726) NEUTROPHILS ABSOLUTE COUNT (BEAKER) (test 3.18 K/ L 1.78-5.38 moww=806) LYMPHOCYTES ABSOLUTE COUNT (BEAKER) (test 0.72 K/ L 1.32-3.57 nnkh=071) MONOCYTES ABSOLUTE COUNT (BEAKER) (test tjuq=122) 0.43 K/ L 0.30-0.82 EOSINOPHILS ABSOLUTE COUNT (BEAKER) (test 0.04 K/ L 0.04-0.54 nvnk=667) BASOPHILS ABSOLUTE COUNT (BEAKER) (test rosc=688) 0.01 K/ L 0.01-0.08 IMMATURE GRANULOCYTES-RELATIVE PERCENT (BEAKER) 1 % 0-1 (test xett=9803) POCT-GLUCOSE [id number] 18:11:00 Test Item Value Reference Range Comments POC-GLUCOSE METER (BEAKER) 214 mg/dL 70-110 TESTED AT [facility] [address] [facility] (test uyxq=0948) [facility] [address] POCT-GLUCOSE [id number] 12:38:00 Test Item Value Reference Range Comments POC-GLUCOSE METER (BEAKER) 173 mg/dL 70-110 TESTED AT [facility] [address] [facility] (test qfte=4221) [facility] [address] [place] [id number] 10:03:00 Test Item Value Reference Range Comments TACROLIMUS BLOOD (BEAKER) (test tepi=117) 6.2 ng/mL 10.0-20.0 CBC W/PLT COUNT & AUTO [id number] 07:36:00 Test Item Value Reference Range Comments WHITE BLOOD CELL COUNT (BEAKER) (test hlia=865) 14.9 K/ L 3.5-10.5 RED BLOOD CELL COUNT (BEAKER) (test erca=118) 2.96 M/ L 4.63-6.08 HEMOGLOBIN (BEAKER) (test dahb=851) 9.0 GM/DL 13.7-17.5 HEMATOCRIT (BEAKER) (test nmnw=053) 28.3 % 40.1-51.0 MEAN CORPUSCULAR VOLUME (BEAKER) (test lzef=141) 95.6 fL 79.0-92.2 MEAN CORPUSCULAR HEMOGLOBIN (BEAKER) (test 30.4 pg 25.7-32.2 cvzs=370) MEAN CORPUSCULAR HEMOGLOBIN CONC (BEAKER) (test 31.8 GM/DL 32.3-36.5 hres=936) RED CELL DISTRIBUTION WIDTH (BEAKER) (test 18.1 % 11.6-14.4 nrfg=913) PLATELET COUNT (BEAKER) (test hiyv=210) 138 K/CU MM 150-450 MEAN PLATELET VOLUME (BEAKER) (test welz=166) 11.5 fL 9.4-12.4 NUCLEATED RED BLOOD CELLS (BEAKER) (test 0 /100 WBC 0-0 lusw=553) (CELLAVISION MANUAL DIFF)2018-01-08 07:36:00 Test Item Value Reference Range Comments NEUTROPHILS - REL (CELLAVISION)(BEAKER) (test 86 % ectx=9299) LYMPHOCYTES - REL (CELLAVISION)(BEAKER) (test 7 % ouhv=2027) MONOCYTES - REL (CELLAVISION)(BEAKER) (test 5 % xogq=5663) EOSINOPHILS - REL (CELLAVISION)(BEAKER) (test 2 % oewf=8405) NEUTROPHILS - ABS (CELLAVISION)(BEAKER) (test 12.81 K/ul 1.78-5.38 mrbk=9941) LYMPHOCYTES - ABS (CELLAVISION)(BEAKER) (test 1.04 K/ul 1.32-3.57 dcjr=1816) MONOCYTES - ABS (CELLAVISION)(BEAKER) (test 0.75 K/uL 0.30-0.82 yehz=8479) EOSINOPHILS - ABS (CELLAVISION)(BEAKER) (test 0.30 K/uL 0.04-0.54 tbti=3985) TOTAL COUNTED (BEAKER) (test nlpf=2697) 100 WBC MORPHOLOGY (BEAKER) (test hiua=035) Normal PLT MORPHOLOGY (BEAKER) (test altr=522) Normal ANISOCYTOSIS (BEAKER) (test ybms=317) 1+ few MICROCYTES (BEAKER) (test qzcx=309) 1+ few POIKILOCYTES (BEAKER) (test irlh=841) 1+ few ARTIFACT (CELLAVISION)(BEAKER) (test amfy=8643) Present PLATELET CONCENTRATION (CELLAVISION)(BEAKER) Decreased (test xdty=4493) Received comment: User comments: Slide comments:HEPATIC FUNCTION [id number] 06:16:00 Test Item Value Reference Range Comments TOTAL PROTEIN (BEAKER) (test sddv=149) 4.9 gm/dL 6.0-8.3 ALBUMIN (BEAKER) (test trch=6068) 3.3 g/dL 3.5-5.0 BILIRUBIN TOTAL (BEAKER) (test ymff=986) 1.7 mg/dL 0.2-1.2 BILIRUBIN DIRECT (BEAKER) (test yfzt=298) 1.1 mg/dL 0.1-0.5 ALKALINE PHOSPHATASE (BEAKER) (test almq=919) 263 U/L 40-150 AST (SGOT) (BEAKER) (test ehvi=999) 58 U/L 5-34 ALT (SGPT) (BEAKER) (test kmjs=080) 84 U/L 6-55 BASIC METABOLIC [id number] 06:16:00 Test Item Value Reference Range Comments SODIUM (BEAKER) (test 139 meq/L 136-145 ojyq=206) POTASSIUM (BEAKER) (test 4.1 meq/L 3.5-5.1 ugjs=239) CHLORIDE (BEAKER) (test 102 meq/L 98-107 yuoq=512) CO2 (BEAKER) (test 23 meq/L 22-29 vbmj=996) BLOOD UREA NITROGEN 76 mg/dL 7-21 (BEAKER) (test itvx=353) CREATININE (BEAKER) (test 2.77 mg/dL 0.57-1.25 ygls=896) GLUCOSE RANDOM (BEAKER) 111 mg/dL 70-105 (test pdxp=408) CALCIUM (BEAKER) (test 8.2 mg/dL 8.4-10.2 ahdq=895) EGFR (BEAKER) (test 24 mL/min/1.73 sq m ESTIMATED GFR IS NOT anjr=4702) ACCURATE CREATININE CLEARANCE IN PREDICTING GLOMERULAR FILTRATION RATE. ESTIMATED GFR IS NOT APPLICABLE FOR DIALYSIS PATIENTS. POCT-GLUCOSE [id number] 00:25:00 Test Item Value Reference Range Comments POC-GLUCOSE METER (BEAKER) 149 mg/dL 70-110 TESTED AT [address] (test axbs=8467) [place] [address] POCT-GLUCOSE [id number] 18:42:00 Test Item Value Reference Range Comments POC-GLUCOSE METER (BEAKER) 204 mg/dL 70-110 TESTED AT [address] (test eurt=6909) [place] [address] POCT-GLUCOSE [id number] 11:49:00 Test Item Value Reference Range Comments POC-GLUCOSE METER (BEAKER) 104 mg/dL 70-110 TESTED AT [address] (test bkbg=8422) [place] [address] [place] [id number] 09:02:00 Test Item Value Reference Range Comments TACROLIMUS BLOOD (BEAKER) (test isll=454) 7.4 ng/mL 10.0-20.0 RAD, CHEST, 1 VIEW, NON [id number] 08:16:00Reason for exam:->respiratory failureShould this be performed at the bedside?->YesFINAL REPORT Chest one view compared to January 06 Discussion: Bilateral airspacepulmonary opacities are similar. Lateral lines in place lower SVC level. No gross effusion or pneumothorax. Signed: Raul Callejaseport Verified Date/Time: 01/07/2018 08:16:36 Reading Location: [facility] Radiology Reading Room Electronically signed by: RAUL CALLEJAS M.D. on 03/2018 08:16 AMBASIC METABOLIC [id number] 05:23:00 Test Item Value Reference Range Comments SODIUM (BEAKER) (test 141 meq/L 136-145 adnc=381) POTASSIUM (BEAKER) (test 4.2 meq/L 3.5-5.1 nmua=289) CHLORIDE (BEAKER) (test 108 meq/L 98-107 oqhx=792) CO2 (BEAKER) (test 22 meq/L 22-29 cbcu=567) BLOOD UREA NITROGEN 54 mg/dL 7-21 (BEAKER) (test apul=926) CREATININE (BEAKER) (test 2.35 mg/dL 0.57-1.25 dcwi=669) GLUCOSE RANDOM (BEAKER) 77 mg/dL 70-105 (test ffmh=444) CALCIUM (BEAKER) (test 7.9 mg/dL 8.4-10.2 pewr=268) EGFR (BEAKER) (test 28 mL/min/1.73 sq m ESTIMATED GFR IS NOT gkaj=8917) ACCURATE CREATININE CLEARANCE IN PREDICTING GLOMERULAR FILTRATION RATE. ESTIMATED GFR IS NOT APPLICABLE FOR DIALYSIS PATIENTS. CBC W/PLT COUNT & AUTO [id number] 05:21:00 Test Item Value Reference Range Comments WHITE BLOOD CELL COUNT (BEAKER) (test pdlo=173) 16.5 K/ L 3.5-10.5 RED BLOOD CELL COUNT (BEAKER) (test zqje=672) 2.92 M/ L 4.63-6.08 HEMOGLOBIN (BEAKER) (test fieq=728) 8.8 GM/DL 13.7-17.5 HEMATOCRIT (BEAKER) (test cscf=259) 28.4 % 40.1-51.0 MEAN CORPUSCULAR VOLUME (BEAKER) (test fyex=145) 97.3 fL 79.0-92.2 MEAN CORPUSCULAR HEMOGLOBIN (BEAKER) (test 30.1 pg 25.7-32.2 risb=075) MEAN CORPUSCULAR HEMOGLOBIN CONC (BEAKER) (test 31.0 GM/DL 32.3-36.5 okkl=405) RED CELL DISTRIBUTION WIDTH (BEAKER) (test 17.7 % 11.6-14.4 ojmf=431) PLATELET COUNT (BEAKER) (test bpuq=634) 104 K/CU MM 150-450 MEAN PLATELET VOLUME (BEAKER) (test ohts=996) 11.9 fL 9.4-12.4 NUCLEATED RED BLOOD CELLS (BEAKER) (test 0 /100 WBC 0-0 axod=849) NEUTROPHILS RELATIVE PERCENT (BEAKER) (test 82 % xuml=462) LYMPHOCYTES RELATIVE PERCENT (BEAKER) (test 7 % aeso=553) MONOCYTES RELATIVE PERCENT (BEAKER) (test 7 % juyu=264) EOSINOPHILS RELATIVE PERCENT (BEAKER) (test 1 % xaif=414) BASOPHILS RELATIVE PERCENT (BEAKER) (test 0 % bcqz=229) NEUTROPHILS ABSOLUTE COUNT (BEAKER) (test 13.47 K/ L 1.78-5.38 leaf=408) LYMPHOCYTES ABSOLUTE COUNT (BEAKER) (test 1.16 K/ L 1.32-3.57 rbyt=899) MONOCYTES ABSOLUTE COUNT (BEAKER) (test 1.22 K/ L 0.30-0.82 fmru=565) EOSINOPHILS ABSOLUTE COUNT (BEAKER) (test 0.21 K/ L 0.04-0.54 wiqv=253) BASOPHILS ABSOLUTE COUNT (BEAKER) (test 0.02 K/ L 0.01-0.08 uplw=651) IMMATURE GRANULOCYTES-RELATIVE PERCENT (BEAKER) 2 % 0-1 (test uyif=5083) HEPATIC FUNCTION [id number] 05:21:00 Test Item Value Reference Range Comments TOTAL PROTEIN (BEAKER) (test xnet=510) 4.4 gm/dL 6.0-8.3 ALBUMIN (BEAKER) (test bgbl=3919) 2.9 g/dL 3.5-5.0 BILIRUBIN TOTAL (BEAKER) (test wsoy=357) 1.9 mg/dL 0.2-1.2 BILIRUBIN DIRECT (BEAKER) (test zmli=947) 1.2 mg/dL 0.1-0.5 ALKALINE PHOSPHATASE (BEAKER) (test ihpj=416) 263 U/L 40-150 AST (SGOT) (BEAKER) (test uiqj=927) 64 U/L 5-34 ALT (SGPT) (BEAKER) (test wqzv=989) 91 U/L 6-55 POCT-GLUCOSE [id number] 23:36:00 Test Item Value Reference Range Comments POC-GLUCOSE METER (BEBANNER) 86 mg/dL 70-110 TESTED AT [address] (test tfmy=0735) [place] [address] POCT-GLUCOSE [id number] 22:44:00 Test Item Value Reference Range Comments POC-GLUCOSE METER ([facility]) 138 mg/dL 70-110 TESTED AT [address] (test mwrc=6341) [place] [address] HEPATOBILIARY [id number] 16:02:00Per REPORT PROCEDURE: HEPATOBILIARY SCAN CPT CODE: [id number] INDICATION: Right upper quadrant pain, fever, leukocytosis PROTOCOL: 5.35 mCi of Tc-99m mebrofenin was injected intravenously. Images of the upper abdomen were obtained for approximately 60 minutes after tracer injection. Four-hour delay images were also obtained. FINDINGS: Initial tracer uptake into the liver is physiological. Subsequent tracer clearance from the liver proceeds normally. There is good visualization of the extrahepatic biliary duct but minimal visualization of the gallbladder. Tracer appears appropriately in the small bowel. IMPRESSION:1. There is nonvisualization of the gallbladder. While this finding is consistent with acute cholecystitis, no morphine sulfate aredelayed images were obtained to verify and to increase the positive predictive value. Imaging studies available for correlation included ultrasound abdomen 12/27/2017. Signed: Rush Aiken MDReport Verified Date/Time : 01/06/2018 16:02:34 Reading Location: [address] Reading Room TACROLIMUS [id number] 10:39:00 Test Item Value Reference Range Comments TACROLIMUS BLOOD (KATELYNN) (test gojm=402) 9.1 ng/mL 10.0-20.0 RAD, CHEST, 1 VIEW, NON [id number] 03:58:00Reason for exam:->respiratory failureShould this be performed at the bedside?->YesFINAL REPORT EXAMINATION: AP PORTABLE CHEST RADIOGRAPH CLINICAL INDICATION: Respiratory failure IMPRESSION: Compared with 01/05/2018 Support tube and catheter positions are unchanged. Cardiac and mediastinal contours are stable. Relatively stable opacities are again noted throughout both lungs, most conspicuous in the perihilar regions and lung bases. The small superimposed pleural effusions and/or pleural thickening are also stable. No evidence of new lung consolidation or pneumothorax. In summary, no significant interval change. Signed: Osiris Lira MDReport Verified Date/Time: 01/06/2018 03:58:03 Reading Location: [address] Reading Room CBC W/PLT COUNT & AUTO [id number] 03:53:00 Test Item Value Reference Range Comments WHITE BLOOD CELL COUNT (BEAKER) (test mlwb=400) 10.2 K/ L 3.5-10.5 RED BLOOD CELL COUNT (BEAKER) (test wgmo=240) 2.58 M/ L 4.63-6.08 HEMOGLOBIN (BEAKER) (test gfpc=632) 7.9 GM/DL 13.7-17.5 HEMATOCRIT (BEAKER) (test pqvr=787) 24.4 % 40.1-51.0 MEAN CORPUSCULAR VOLUME (BEAKER) (test nclm=903) 94.6 fL 79.0-92.2 MEAN CORPUSCULAR HEMOGLOBIN (BEAKER) (test 30.6 pg 25.7-32.2 udld=821) MEAN CORPUSCULAR HEMOGLOBIN CONC (BEAKER) (test 32.4 GM/DL 32.3-36.5 qikk=968) RED CELL DISTRIBUTION WIDTH (BEAKER) (test 17.0 % 11.6-14.4 ibcp=465) PLATELET COUNT (BEAKER) (test sfzy=578) 51 K/CU MM 150-450 MEAN PLATELET VOLUME (BEAKER) (test hzle=962) 12.8 fL 9.4-12.4 NUCLEATED RED BLOOD CELLS (BEAKER) (test 0 /100 WBC 0-0 gers=803) NEUTROPHILS RELATIVE PERCENT (BEAKER) (test 84 % ndjb=728) LYMPHOCYTES RELATIVE PERCENT (BEAKER) (test 6 % nfwi=348) MONOCYTES RELATIVE PERCENT (BEAKER) (test 5 % mxry=290) EOSINOPHILS RELATIVE PERCENT (BEAKER) (test 1 % zuxd=351) BASOPHILS RELATIVE PERCENT (BEAKER) (test 0 % anaw=260) NEUTROPHILS ABSOLUTE COUNT (BEAKER) (test 8.55 K/ L 1.78-5.38 azos=927) LYMPHOCYTES ABSOLUTE COUNT (BEAKER) (test 0.65 K/ L 1.32-3.57 uekn=054) MONOCYTES ABSOLUTE COUNT (BEAKER) (test gqbh=814) 0.53 K/ L 0.30-0.82 EOSINOPHILS ABSOLUTE COUNT (BEAKER) (test 0.11 K/ L 0.04-0.54 gtdv=636) BASOPHILS ABSOLUTE COUNT (BEAKER) (test yzbg=506) 0.01 K/ L 0.01-0.08 IMMATURE GRANULOCYTES-RELATIVE PERCENT (BEAKER) 4 % 0-1 (test xlaw=2226) BASIC METABOLIC [id number] 03:51:00 Test Item Value Reference Range Comments SODIUM (BEAKER) (test 137 meq/L 136-145 tjfo=295) POTASSIUM (BEAKER) (test 4.1 meq/L 3.5-5.1 ivcm=519) CHLORIDE (BEAKER) (test 106 meq/L 98-107 ptds=166) CO2 (BEAKER) (test 23 meq/L 22-29 hoko=379) BLOOD UREA NITROGEN 36 mg/dL 7-21 (BEAKER) (test ymdu=571) CREATININE (BEAKER) (test 1.83 mg/dL 0.57-1.25 qypu=097) GLUCOSE RANDOM (BEAKER) 113 mg/dL 70-105 (test stdk=687) CALCIUM (BEAKER) (test 8.2 mg/dL 8.4-10.2 zrqy=015) EGFR (BEAKER) (test 38 mL/min/1.73 sq m ESTIMATED GFR IS NOT jhgp=0811) ACCURATE CREATININE CLEARANCE IN PREDICTING GLOMERULAR FILTRATION RATE. ESTIMATED GFR IS NOT APPLICABLE FOR DIALYSIS PATIENTS. [id number] 03:51:00 Test Item Value Reference Range Comments MAGNESIUM (BEAKER) (test knbu=294) 2.1 mg/dL 1.6-2.6 [id number] 03:51:00 Test Item Value Reference Range Comments PHOSPHORUS (BEAKER) (test qwqu=321) 3.9 mg/dL 2.3-4.7 POCT-GLUCOSE [id number] 00:02:00 Test Item Value Reference Range Comments POC-GLUCOSE METER (BEAKER) 110 mg/dL 70-110 TESTED AT [address] (test isvi=5977) [place] [address] BASIC METABOLIC [id number] 18:14:00 Test Item Value Reference Range Comments SODIUM (BEAKER) (test 137 meq/L 136-145 dmwl=816) POTASSIUM (BEAKER) (test 4.5 meq/L 3.5-5.1 zwek=131) CHLORIDE (BEAKER) (test 106 meq/L 98-107 ziki=832) CO2 (BEAKER) (test 22 meq/L 22-29 geya=857) BLOOD UREA NITROGEN 28 mg/dL 7-21 (BEAKER) (test rqop=756) CREATININE (BEAKER) (test 1.33 mg/dL 0.57-1.25 ejrp=391) GLUCOSE RANDOM (BEAKER) 134 mg/dL 70-105 (test bsap=777) CALCIUM (BEAKER) (test 8.5 mg/dL 8.4-10.2 jzyb=042) EGFR (BEAKER) (test 55 mL/min/1.73 sq m ESTIMATED GFR IS NOT ohmb=3815) ACCURATE CREATININE CLEARANCE IN PREDICTING GLOMERULAR FILTRATION RATE. ESTIMATED GFR IS NOT APPLICABLE FOR DIALYSIS PATIENTS. POCT-GLUCOSE [id number] 17:56:00 Test Item Value Reference Range Comments POC-GLUCOSE METER (BEAKER) 143 mg/dL 70-110 TESTED AT [address] (test ivwu=5732) [place] [address] [id number] 16:39:00 Test Item Value Reference Range Comments POTASSIUM (BEAKER) (test yygy=289) 4.7 meq/L 3.5-5.1 CALCIUM, [id number] 16:33:00 Test Item Value Reference Range Comments CALCIUM IONIZED (BEAKER) (test nqli=823) 1.11 mmol/L 1.12-1.27 PH, BLOOD (BEAKER) (test dkgc=2065) 7.53 [id number] 12:31:00 Test Item Value Reference Range Comments POTASSIUM (BEAKER) (test vhos=647) 4.2 meq/L 3.5-5.1 POCT-GLUCOSE [id number] 12:06:00 Test Item Value Reference Range Comments POC-GLUCOSE METER (BEAKER) 137 mg/dL 70-110 TESTED AT [facility] [address] [facility] (test nfpx=1416) [facility] [address] [id number] 10:53:00 Test Item Value Reference Range Comments AMYLASE (BEAKER) (test syna=230) 53 U/L 25-125 Specimen slightly [id number] 10:53:00 Test Item Value Reference Range Comments LIPASE (BEAKER) (test cpqc=803) 34 U/L 8-78 Specimen slightly ictericTACROLIMUS [id number] 10:02:00 Test Item Value Reference Range Comments TACROLIMUS BLOOD (BEAKER) (test tbgn=278) 8.9 ng/mL 10.0-20.0 [id number] 08:58:00 Test Item Value Reference Range Comments PHOSPHORUS (BEAKER) (test ebsw=253) 2.5 mg/dL 2.3-4.7 [id number] 08:58:00 Test Item Value Reference Range Comments MAGNESIUM (BEAKER) (test ttzc=421) 1.9 mg/dL 1.6-2.6 BASIC METABOLIC [id number] 08:58:00 Test Item Value Reference Range Comments SODIUM (BEAKER) (test 139 meq/L 136-145 nqcw=219) POTASSIUM (BEAKER) (test 4.1 meq/L 3.5-5.1 voku=395) CHLORIDE (BEAKER) (test 108 meq/L 98-107 xhmv=228) CO2 (BEAKER) (test 23 meq/L 22-29 sham=522) BLOOD UREA NITROGEN 29 mg/dL 7-21 (BEAKER) (test kwaj=943) CREATININE (BEAKER) (test 1.37 mg/dL 0.57-1.25 hntv=664) GLUCOSE RANDOM (BEAKER) 138 mg/dL 70-105 (test zspu=007) CALCIUM (BEAKER) (test 8.7 mg/dL 8.4-10.2 nlcs=163) EGFR (BEAKER) (test 53 mL/min/1.73 sq m ESTIMATED GFR IS NOT jyfj=7340) ACCURATE CREATININE CLEARANCE IN PREDICTING GLOMERULAR FILTRATION RATE. ESTIMATED GFR IS NOT APPLICABLE FOR DIALYSIS PATIENTS. CALCIUM, [id number] 08:38:00 Test Item Value Reference Range Comments CALCIUM IONIZED (BEAKER) (test cker=408) 1.07 mmol/L 1.12-1.27 PH, BLOOD (BEAKER) (test wosd=0521) 7.51 RAD, CHEST, 1 VIEW, NON [id number] 06:36:00Reason for exam:->respiratory failureShould this be performed at the bedside?->YesFINAL REPORT Chest one view. Clinical history: respiratory failure Comparison: Chest radiograph 01/04/2018. Technique: A single frontal view of the chest was obtained. Findings: Cardiomediastinal contours are unchanged. There is a feeding tube in satisfactory position. There has been interval removal of endotracheal tube. There is a left-sided central venous catheter with tipin the SVC. There is a right PICC line with tip in the SVC/RA junction.The patient is status post median sternotomy. Surgical clips overlie the left mediastinum. There are diffuse bilateral airspace opacities, not significantly changed. There are small bilateral pleural effusions. There is no pneumothorax. Signed : David Brantley MDReport Verified Date/Time: 01/05/2018 06:36:45 Reading Location: [address] Transitional Reading Room BASIC METABOLIC [id number] 06:33:00 Test Item Value Reference Range Comments SODIUM (BEAKER) (test 139 meq/L 136-145 ebyx=500) POTASSIUM (BEAKER) (test 4.1 meq/L 3.5-5.1 wwye=721) CHLORIDE (BEAKER) (test 108 meq/L 98-107 eorq=967) CO2 (BEAKER) (test 24 meq/L 22-29 khwd=633) BLOOD UREA NITROGEN 29 mg/dL 7-21 (BEAKER) (test tlow=414) CREATININE (BEAKER) (test 1.31 mg/dL 0.57-1.25 hjpi=892) GLUCOSE RANDOM (BEAKER) 132 mg/dL 70-105 (test rmte=825) CALCIUM (BEAKER) (test 8.8 mg/dL 8.4-10.2 aanv=249) EGFR (BEAKER) (test 56 mL/min/1.73 sq m ESTIMATED GFR IS NOT dwzk=3744) ACCURATE CREATININE CLEARANCE IN PREDICTING GLOMERULAR FILTRATION RATE. ESTIMATED GFR IS NOT APPLICABLE FOR DIALYSIS PATIENTS. Specimen slightly ictericHEPATIC FUNCTION [id number] 06:33:00 Test Item Value Reference Range Comments TOTAL PROTEIN (BEAKER) (test bzqt=491) 4.4 gm/dL 6.0-8.3 ALBUMIN (BEAKER) (test rqmy=2533) 3.0 g/dL 3.5-5.0 BILIRUBIN TOTAL (BEAKER) (test hydj=195) 2.7 mg/dL 0.2-1.2 BILIRUBIN DIRECT (BEAKER) (test wovu=649) 1.7 mg/dL 0.1-0.5 ALKALINE PHOSPHATASE (BEAKER) (test tpzd=308) 265 U/L 40-150 AST (SGOT) (BEAKER) (test bltd=357) 78 U/L 5-34 ALT (SGPT) (BEAKER) (test xioz=372) 114 U/L 6-55 Specimen slightly ictericCBC W/PLT COUNT & AUTO [id number] 06:07 :00 Test Item Value Reference Range Comments WHITE BLOOD CELL COUNT (BEAKER) (test nrkc=255) 12.0 K/ L 3.5-10.5 RED BLOOD CELL COUNT (BEAKER) (test meft=214) 2.55 M/ L 4.63-6.08 HEMOGLOBIN (BEAKER) (test ozai=662) 7.8 GM/DL 13.7-17.5 HEMATOCRIT (BEAKER) (test hxqo=210) 24.4 % 40.1-51.0 MEAN CORPUSCULAR VOLUME (BEAKER) (test mpaj=547) 95.7 fL 79.0-92.2 MEAN CORPUSCULAR HEMOGLOBIN (BEAKER) (test 30.6 pg 25.7-32.2 qjoq=467) MEAN CORPUSCULAR HEMOGLOBIN CONC (BEAKER) (test 32.0 GM/DL 32.3-36.5 usgj=750) RED CELL DISTRIBUTION WIDTH (BEAKER) (test 15.8 % 11.6-14.4 boez=960) PLATELET COUNT (BEAKER) (test xrgr=581) 39 K/CU MM 150-450 MEAN PLATELET VOLUME (BEAKER) (test xayi=387) 13.4 fL 9.4-12.4 NUCLEATED RED BLOOD CELLS (BEAKER) (test 0 /100 WBC 0-0 mzdp=882) NEUTROPHILS RELATIVE PERCENT (BEAKER) (test 87 % ykzz=302) LYMPHOCYTES RELATIVE PERCENT (BEAKER) (test 5 % exhb=893) MONOCYTES RELATIVE PERCENT (BEAKER) (test 3 % mxtk=062) EOSINOPHILS RELATIVE PERCENT (BEAKER) (test 1 % letd=898) BASOPHILS RELATIVE PERCENT (BEAKER) (test 0 % ymhb=831) NEUTROPHILS ABSOLUTE COUNT (BEAKER) (test 10.49 K/ L 1.78-5.38 obtp=367) LYMPHOCYTES ABSOLUTE COUNT (BEAKER) (test 0.55 K/ L 1.32-3.57 tejq=598) MONOCYTES ABSOLUTE COUNT (BEAKER) (test iydc=927) 0.40 K/ L 0.30-0.82 EOSINOPHILS ABSOLUTE COUNT (BEAKER) (test 0.14 K/ L 0.04-0.54 kvge=656) BASOPHILS ABSOLUTE COUNT (BEAKER) (test mwse=043) 0.01 K/ L 0.01-0.08 IMMATURE GRANULOCYTES-RELATIVE PERCENT (BEAKER) 4 % 0-1 (test tllj=1471) [id number] 00:54:00 Test Item Value Reference Range Comments POTASSIUM (BEAKER) (test ywbc=281) 4.0 meq/L 3.5-5.1 CALCIUM, [id number] 00:39:00 Test Item Value Reference Range Comments CALCIUM IONIZED (BEAKER) (test vvta=276) 1.09 mmol/L 1.12-1.27 PH, BLOOD (BEAKER) (test yidp=6616) 7.49 POCT-GLUCOSE [id number] 00:12:00 Test Item Value Reference Range Comments POC-GLUCOSE METER (BEAKER) 96 mg/dL 70-110 TESTED AT [facility] [address] [facility] (test qejv=9563) [facility] [address] [id number] 20:37:00 Test Item Value Reference Range Comments POTASSIUM (BEAKER) (test jobc=944) 4.3 meq/L 3.5-5.1 [id number] 20:37:00 Test Item Value Reference Range Comments MAGNESIUM (BEAKER) (test fwtt=510) 2.0 mg/dL 1.6-2.6 [id number] 20:37:00 Test Item Value Reference Range Comments PHOSPHORUS (BEAKER) (test nnwl=486) 2.1 mg/dL 2.3-4.7 [id number] 17:29:00 Test Item Value Reference Range Comments POTASSIUM (BEAKER) (test qgjx=928) 4.6 meq/L 3.5-5.1 BASIC METABOLIC [id number] 17:29:00 Test Item Value Reference Range Comments SODIUM (BEAKER) (test 136 meq/L 136-145 pkbh=603) POTASSIUM (BEAKER) (test 4.6 meq/L 3.5-5.1 wakh=689) CHLORIDE (BEAKER) (test 105 meq/L 98-107 jfci=637) CO2 (BEAKER) (test 23 meq/L 22-29 rsnr=022) BLOOD UREA NITROGEN 33 mg/dL 7-21 (BEAKER) (test jxbx=193) CREATININE (BEAKER) (test 1.39 mg/dL 0.57-1.25 khfq=368) GLUCOSE RANDOM (BEAKER) 211 mg/dL 70-105 (test kvuc=773) CALCIUM (BEAKER) (test 8.6 mg/dL 8.4-10.2 bgon=982) EGFR (BEAKER) (test 52 mL/min/1.73 sq m ESTIMATED GFR IS NOT cfgh=1248) ACCURATE CREATININE CLEARANCE IN PREDICTING GLOMERULAR FILTRATION RATE. ESTIMATED GFR IS NOT APPLICABLE FOR DIALYSIS PATIENTS. Specimen slightly ictericCALCIUM, [id number] 17:06:00 Test Item Value Reference Range Comments CALCIUM IONIZED (BEAKER) (test clfx=291) 1.09 mmol/L 1.12-1.27 PH, BLOOD (BEAKER) (test hgiy=5309) 7.49 TACROLIMUS [id number] 14:39:00 Test Item Value Reference Range Comments TACROLIMUS BLOOD (BEAKER) (test gcsm=413) 9.5 ng/mL 10.0-20.0 [id number] 13:49:00 Test Item Value Reference Range Comments POTASSIUM (BEAKER) (test spvh=749) 4.4 meq/L 3.5-5.1 POCT-GLUCOSE [id number] 12:21:00 Test Item Value Reference Range Comments POC-GLUCOSE METER (BEAKER) 182 mg/dL 70-110 TESTED AT [facility] [address] [facility] (test vwjh=5587) [facility] [address] [id number] 10:13:00 Test Item Value Reference Range Comments MAGNESIUM (BEAKER) (test oohp=344) 2.3 mg/dL 1.6-2.6 BASIC METABOLIC [id number] 10:13:00 Test Item Value Reference Range Comments SODIUM (BEAKER) (test 136 meq/L 136-145 lfnc=610) POTASSIUM (BEAKER) (test 4.1 meq/L 3.5-5.1 dqgm=087) CHLORIDE (BEAKER) (test 105 meq/L 98-107 fadi=376) CO2 (BEAKER) (test 23 meq/L 22-29 pciw=854) BLOOD UREA NITROGEN 35 mg/dL 7-21 (BEAKER) (test lvmr=428) CREATININE (BEAKER) (test 1.37 mg/dL 0.57-1.25 aawb=753) GLUCOSE RANDOM (BEAKER) 186 mg/dL 70-105 (test ymel=530) CALCIUM (BEAKER) (test 8.3 mg/dL 8.4-10.2 wrbu=351) EGFR (BEAKER) (test 53 mL/min/1.73 sq m ESTIMATED GFR IS NOT nbtq=7336) ACCURATE CREATININE CLEARANCE IN PREDICTING GLOMERULAR FILTRATION RATE. ESTIMATED GFR IS NOT APPLICABLE FOR DIALYSIS PATIENTS. Specimen slightly ictericRAD, CHEST, 1 VIEW, NON [id number] 09:57:00Reason for exam:->respiratory failureShould this be performed at the bedside?-> YesFINAL REPORT Chest dated 01/04/2018 COMPARISON: December Clinical Information: respiratory failure Comment: Heart is enlarged. Pulmonary vasculature is indistinct. Airspace disease is seen bilaterally suggestive of pulmonary edema or pneumonia unchanged from prior study. No pleural effusion or pneumothorax is seen. Endotracheal tube, feeding tube, left IJ central venous catheter, and right PICC line remain in place. No pneumothorax is noted. Impression: Bilateral airspace disease suggestive of pulmonary edema or pneumonia unchanged from prior study. Signed: Ken Harper MDReport Verified Date/Time: 01/04/2018 09:57:17 Reading Location: [facility] B1 C013Y CT Body Reading Room Electronically signed by: KEN HARPER M.D. on 12/2017 09:57 AMCALCIUM, [id number] 09:33:00 Test Item Value Reference Range Comments CALCIUM IONIZED (BEAKER) (test emtb=809) 1.12 mmol/L 1.12-1.27 PH, BLOOD (BEAKER) (test ywko=7039) 7.45 Check serum Ionized Calcium level after 4 hours after IV Calcium replacement.[id number] 06:16:00 Test Item Value Reference Range Comments PHOSPHORUS (BEAKER) (test nonb=261) 3.2 mg/dL 2.3-4.7 [id number] 06:16:00 Test Item Value Reference Range Comments MAGNESIUM (BEAKER) (test cagk=908) 1.9 mg/dL 1.6-2.6 BASIC METABOLIC [id number] 06:16:00 Test Item Value Reference Range Comments SODIUM (BEAKER) (test 136 meq/L 136-145 owkj=734) POTASSIUM (BEAKER) (test 4.1 meq/L 3.5-5.1 uimm=396) CHLORIDE (BEAKER) (test 106 meq/L 98-107 miwq=068) CO2 (BEAKER) (test 23 meq/L 22-29 ldmy=591) BLOOD UREA NITROGEN 34 mg/dL 7-21 (BEAKER) (test yjhy=915) CREATININE (BEAKER) (test 1.39 mg/dL 0.57-1.25 detk=444) GLUCOSE RANDOM (BEAKER) 173 mg/dL 70-105 (test rlgk=643) CALCIUM (BEAKER) (test 8.3 mg/dL 8.4-10.2 ovtl=218) EGFR (BEAKER) (test 52 mL/min/1.73 sq m ESTIMATED GFR IS NOT fnyq=0342) ACCURATE CREATININE CLEARANCE IN PREDICTING GLOMERULAR FILTRATION RATE. ESTIMATED GFR IS NOT APPLICABLE FOR DIALYSIS PATIENTS. Specimen slightly ictericCBC W/PLT COUNT & AUTO [id number] 05:51 :00 Test Item Value Reference Range Comments WHITE BLOOD CELL COUNT (BEAKER) (test mvpk=180) 13.3 K/ L 3.5-10.5 RED BLOOD CELL COUNT (BEAKER) (test gmtg=429) 2.42 M/ L 4.63-6.08 HEMOGLOBIN (BEAKER) (test pzic=636) 7.4 GM/DL 13.7-17.5 HEMATOCRIT (BEAKER) (test zeos=353) 23.1 % 40.1-51.0 MEAN CORPUSCULAR VOLUME (BEAKER) (test csrg=352) 95.5 fL 79.0-92.2 MEAN CORPUSCULAR HEMOGLOBIN (BEAKER) (test 30.6 pg 25.7-32.2 vnyp=153) MEAN CORPUSCULAR HEMOGLOBIN CONC (BEAKER) (test 32.0 GM/DL 32.3-36.5 tibg=410) RED CELL DISTRIBUTION WIDTH (BEAKER) (test 14.9 % 11.6-14.4 gubg=440) PLATELET COUNT (BEAKER) (test hmgf=687) 28 K/CU MM 150-450 MEAN PLATELET VOLUME (BEAKER) (test tbbm=860) 13.3 fL 9.4-12.4 NUCLEATED RED BLOOD CELLS (BEAKER) (test 0 /100 WBC 0-0 dibx=414) NEUTROPHILS RELATIVE PERCENT (BEAKER) (test 86 % oshq=327) LYMPHOCYTES RELATIVE PERCENT (BEAKER) (test 4 % pqpg=661) MONOCYTES RELATIVE PERCENT (BEAKER) (test 3 % zfve=540) EOSINOPHILS RELATIVE PERCENT (BEAKER) (test 2 % avwm=182) BASOPHILS RELATIVE PERCENT (BEAKER) (test 0 % gifz=074) NEUTROPHILS ABSOLUTE COUNT (BEAKER) (test 11.41 K/ L 1.78-5.38 ahjs=187) LYMPHOCYTES ABSOLUTE COUNT (BEAKER) (test 0.54 K/ L 1.32-3.57 piwf=735) MONOCYTES ABSOLUTE COUNT (BEAKER) (test jbhn=134) 0.36 K/ L 0.30-0.82 EOSINOPHILS ABSOLUTE COUNT (BEAKER) (test 0.22 K/ L 0.04-0.54 mxwz=924) BASOPHILS ABSOLUTE COUNT (BEAKER) (test zfjx=272) 0.02 K/ L 0.01-0.08 IMMATURE GRANULOCYTES-RELATIVE PERCENT (BEAKER) 5 % 0-1 (test yytp=5170) BLOOD GAS, [id number] 05:27:00 Test Item Value Reference Range Comments PH ARTERIAL (BEAKER) (test rdhq=765) 7.42 7.35-7.45 PCO2 ARTERIAL (BEAKER) (test hgau=280) 40 mmHg 35-45 PO2 ARTERIAL (BEAKER) (test abic=183) 90 mmHg 80-90 O2 SATURATION ARTERIAL (BEAKER) (test jroe=675) 97.0 % 96.0-97.0 HCO3 ARTERIAL (BEAKER) (test jcoa=338) 26 mmol/L 21-29 BASE EXCESS ARTERIAL (BEAKER) (test dgym=909) 1.0 mmol/L -2.0-3.0 PATIENT TEMPERATURE (BEAKER) (test ubmh=1403) 37.0 C FIO2 (BEAKER) (test kyiv=7855) 40.0 % CALCIUM, [id number] 05:27:00 Test Item Value Reference Range Comments CALCIUM IONIZED (BEAKER) (test jzbd=385) 1.14 mmol/L 1.12-1.27 PH, BLOOD (BEAKER) (test wigg=5024) 7.42 [id number] 00:40:00 Test Item Value Reference Range Comments POTASSIUM (BEAKER) (test dxdp=474) 4.2 meq/L 3.5-5.1 CALCIUM, [id number] 00:26:00 Test Item Value Reference Range Comments CALCIUM IONIZED (BEAKER) (test tsat=051) 1.15 mmol/L 1.12-1.27 PH, BLOOD (BEAKER) (test jpqu=4095) 7.42 POCT-GLUCOSE [id number] 00:09:00 Test Item Value Reference Range Comments POC-GLUCOSE METER (BEAKER) 224 mg/dL 70-110 TESTED AT [facility] [address] [facility] (test jfoo=9204) [facility] [address] [id number] 21:19:00 Test Item Value Reference Range Comments POTASSIUM (BEAKER) (test zfuf=686) 4.6 meq/L 3.5-5.1 [id number] 21:19:00 Test Item Value Reference Range Comments MAGNESIUM (BEAKER) (test cwab=480) 1.9 mg/dL 1.6-2.6 [id number] 21:19:00 Test Item Value Reference Range Comments PHOSPHORUS (BEAKER) (test gqjf=323) 2.7 mg/dL 2.3-4.7 BASIC METABOLIC [id number] 19:10:00 Test Item Value Reference Range Comments SODIUM (BEAKER) (test 137 meq/L 136-145 nvpe=846) POTASSIUM (BEAKER) (test 4.7 meq/L 3.5-5.1 mrab=245) CHLORIDE (BEAKER) (test 108 meq/L 98-107 cuex=469) CO2 (BEAKER) (test 21 meq/L 22-29 lkfl=712) BLOOD UREA NITROGEN 35 mg/dL 7-21 (BEAKER) (test dzyx=613) CREATININE (BEAKER) (test 1.45 mg/dL 0.57-1.25 ypje=995) GLUCOSE RANDOM (BEAKER) 201 mg/dL 70-105 (test vfbw=283) CALCIUM (BEAKER) (test 7.8 mg/dL 8.4-10.2 zcas=491) EGFR (BEAKER) (test 50 mL/min/1.73 sq m ESTIMATED GFR IS NOT iicl=4546) ACCURATE CREATININE CLEARANCE IN PREDICTING GLOMERULAR FILTRATION RATE. ESTIMATED GFR IS NOT APPLICABLE FOR DIALYSIS PATIENTS. POCT-GLUCOSE [id number] 18:48:00 Test Item Value Reference Range Comments POC-GLUCOSE METER (BEAKER) 176 mg/dL 70-110 TESTED AT [address] (test jvhe=5590) [facility] [address] [id number] 16:50:00 Test Item Value Reference Range Comments POTASSIUM (BEAKER) (test dnms=529) 4.9 meq/L 3.5-5.1 CALCIUM, [id number] 16:31:00 Test Item Value Reference Range Comments CALCIUM IONIZED (BEAKER) (test adje=413) 1.12 mmol/L 1.12-1.27 PH, BLOOD (BEAKER) (test spzd=0144) 7.42 POCT-GLUCOSE [id number] 13:33:00 Test Item Value Reference Range Comments POC-GLUCOSE METER (BEAKER) 259 mg/dL 70-110 [address] (test npza=6325) [facility] [address] [id number] 13:26:00 Test Item Value Reference Range Comments POTASSIUM (BEAKER) (test lpzt=783) 4.5 meq/L 3.5-5.1 [id number] 10:47:00 Test Item Value Reference Range Comments CORTISOL, TOTAL (BEAKER) (test hrrk=4020) 8.7 ug/dL 3.7-19.4 It is important that this lab be drawn as close to 8 am as possible. Thanks! [id number] 09:00:00 Test Item Value Reference Range Comments PHOSPHORUS (BEAKER) (test pdkc=689) 2.4 mg/dL 2.3-4.7 [id number] 09:00:00 Test Item Value Reference Range Comments MAGNESIUM (BEAKER) (test auey=763) 2.1 mg/dL 1.6-2.6 BASIC METABOLIC [id number] 09:00:00 Test Item Value Reference Range Comments SODIUM (BEAKER) (test 137 meq/L 136-145 bnno=197) POTASSIUM (BEAKER) (test 3.8 meq/L 3.5-5.1 omwn=258) CHLORIDE (BEAKER) (test 108 meq/L 98-107 rbrz=404) CO2 (BEAKER) (test 23 meq/L 22-29 pgly=735) BLOOD UREA NITROGEN 36 mg/dL 7-21 (BEAKER) (test ozju=109) CREATININE (BEAKER) (test 1.56 mg/dL 0.57-1.25 zhoq=396) GLUCOSE RANDOM (BEAKER) 169 mg/dL 70-105 (test xgkm=856) CALCIUM (BEAKER) (test 8.2 mg/dL 8.4-10.2 inzy=190) EGFR (BEAKER) (test 46 mL/min/1.73 sq m ESTIMATED GFR IS NOT pcuk=8720) ACCURATE CREATININE CLEARANCE IN PREDICTING GLOMERULAR FILTRATION RATE. ESTIMATED GFR IS NOT APPLICABLE FOR DIALYSIS PATIENTS. Specimen slightly ictericTACROLIMUS [id number] 08:45:00 Test Item Value Reference Range Comments TACROLIMUS BLOOD (BEAKER) (test denp=726) 8.1 ng/mL 10.0-20.0 CBC W/PLT COUNT & AUTO [id number] 08:28:00 Test Item Value Reference Range Comments WHITE BLOOD CELL COUNT (BEAKER) (test orxk=050) 31.2 K/ L 3.5-10.5 RED BLOOD CELL COUNT (BEAKER) (test fues=281) 2.56 M/ L 4.63-6.08 HEMOGLOBIN (BEAKER) (test lcjp=008) 8.0 GM/DL 13.7-17.5 HEMATOCRIT (BEAKER) (test lwro=825) 23.9 % 40.1-51.0 MEAN CORPUSCULAR VOLUME (BEAKER) (test tinb=690) 93.4 fL 79.0-92.2 MEAN CORPUSCULAR HEMOGLOBIN (BEAKER) (test 31.3 pg 25.7-32.2 tipw=606) MEAN CORPUSCULAR HEMOGLOBIN CONC (BEAKER) (test 33.5 GM/DL 32.3-36.5 tehs=154) RED CELL DISTRIBUTION WIDTH (BEAKER) (test 15.0 % 11.6-14.4 ivmx=899) PLATELET COUNT (BEAKER) (test ippk=318) 39 K/CU MM 150-450 MEAN PLATELET VOLUME (BEAKER) (test avfh=901) 13.2 fL 9.4-12.4 NUCLEATED RED BLOOD CELLS (BEAKER) (test 1 /100 WBC 0-0 ixyb=082) (CELLAVISION MANUAL DIFF)2018-01-03 08:28:00 Test Item Value Reference Range Comments NEUTROPHILS - REL (CELLAVISION)(BEAKER) (test 92 % aomu=4614) LYMPHOCYTES - REL (CELLAVISION)(BEAKER) (test 2 % nhfi=5361) MONOCYTES - REL (CELLAVISION)(BEAKER) (test 3 % gqtw=0227) MYELOCYTES - REL (CELLAVISION)(BEAKER) (test 3 % 0-0 vebk=2956) NEUTROPHILS - ABS (CELLAVISION)(BEAKER) (test 28.70 K/ul 1.78-5.38 bghb=6022) LYMPHOCYTES - ABS (CELLAVISION)(BEAKER) (test 0.62 K/ul 1.32-3.57 pjid=4328) MONOCYTES - ABS (CELLAVISION)(BEAKER) (test 0.94 K/uL 0.30-0.82 elsw=6648) MYELOCYTES-ABS (CELLAVISION)(BEAKER) (test 0.94 K/uL 0.00-0.00 ohcd=2765) TOTAL COUNTED (BEAKER) (test mzeo=1360) 100 MANUAL NRBC PER 100 CELLS (BEAKER) (test 1 /100 WBC 0-0 bade=6360) WBC MORPHOLOGY (BEAKER) (test wiwq=488) Normal PLT MORPHOLOGY (BEAKER) (test pvpi=498) Normal ANISOCYTOSIS (BEAKER) (test yjkb=170) 1+ few MICROCYTES (BEAKER) (test hcar=252) 1+ few POIKILOCYTES (BEAKER) (test wyzd=632) 1+ few OVALOCYTES (BEAKER) (test qyni=978) 1+ few BASOPHILIC STIPPLING (BEAKER) (test qoyc=487) Present ARTIFACT (CELLAVISION)(BEAKER) (test jywc=3245) Present PLATELET CONCENTRATION (CELLAVISION)(BEAKER) Decreased (test gcrj=5100) Received comment: User comments: Slide comments:CALCIUM, [id number] 08:15 :00 Test Item Value Reference Range Comments CALCIUM IONIZED (BEAKER) (test fdou=870) 1.03 mmol/L 1.12-1.27 PH, BLOOD (BEAKER) (test dkmm=1848) 7.40 RAD, CHEST, 1 VIEW, NON [id number] 07:27:00Reason for exam:->respiratory failureShould this be performed at the bedside?->YesFINAL REPORT Chest one view. Clinical history: respiratory failure Comparison: Discussion: A frontal chest is provided. Cardiomediastinal contours are unchanged. Lines and tubes are in stable position. Extensive bilateral interstitial and airspace opacities appear unchanged. Small right pleural effusion is suspected. No pneumothorax. Signed: Tonny Perry Verified Date/ Time: 01/03/2018 07:27:35 Reading Location: [facility] Radiology Reading Room POCT -GLUCOSE [id number] 06:51:00 Test Item Value Reference Range Comments POC-GLUCOSE METER (BEAKER) 230 mg/dL 70-110 TESTED AT [facility] [address] (test allk=6020) [place] [address] [id number] 04:24:00 Test Item Value Reference Range Comments MAGNESIUM (BEAKER) (test eihf=138) 2.1 mg/dL 1.6-2.6 BASIC METABOLIC [id number] 04:24:00 Test Item Value Reference Range Comments SODIUM (BEAKER) (test 139 meq/L 136-145 orcv=522) POTASSIUM (BEAKER) (test 3.8 meq/L 3.5-5.1 kzze=234) CHLORIDE (BEAKER) (test 107 meq/L 98-107 kaax=990) CO2 (BEAKER) (test 22 meq/L 22-29 vmdo=876) BLOOD UREA NITROGEN 40 mg/dL 7-21 (BEAKER) (test pgue=619) CREATININE (BEAKER) (test 1.60 mg/dL 0.57-1.25 bkha=952) GLUCOSE RANDOM (BEAKER) 225 mg/dL 70-105 (test kgkj=235) CALCIUM (BEAKER) (test 8.4 mg/dL 8.4-10.2 muys=515) EGFR (BEAKER) (test 44 mL/min/1.73 sq m ESTIMATED GFR IS NOT vgfj=0419) ACCURATE CREATININE CLEARANCE IN PREDICTING GLOMERULAR FILTRATION RATE. ESTIMATED GFR IS NOT APPLICABLE FOR DIALYSIS PATIENTS. Specimen slightly ictericCALCIUM, [id number] 04:07:00 Test Item Value Reference Range Comments CALCIUM IONIZED (BEAKER) (test qdzo=080) 1.12 mmol/L 1.12-1.27 PH, BLOOD (BEAKER) (test olwc=1821) 7.39 BLOOD GAS, [id number] 04:07:00 Test Item Value Reference Range Comments PH ARTERIAL (BEAKER) (test fqjl=303) 7.40 7.35-7.45 PCO2 ARTERIAL (BEAKER) (test bsig=091) 41 mmHg 35-45 PO2 ARTERIAL (BEAKER) (test qrui=359) 94 mmHg 80-90 O2 SATURATION ARTERIAL (BEAKER) (test glvg=499) 97.4 % 96.0-97.0 HCO3 ARTERIAL (BEAKER) (test sbct=410) 25 mmol/L 21-29 BASE EXCESS ARTERIAL (BEAKER) (test xqmk=863) 0.0 mmol/L -2.0-3.0 PATIENT TEMPERATURE (BEAKER) (test opfd=2983) 36.4 C FIO2 (BEAKER) (test atbw=3232) 40.0 % [id number] 01:24:00 Test Item Value Reference Range Comments POTASSIUM (BEAKER) (test hmmv=081) 4.0 meq/L 3.5-5.1 CALCIUM, [id number] 01:04:00 Test Item Value Reference Range Comments CALCIUM IONIZED (BEAKER) (test ixae=139) 1.09 mmol/L 1.12-1.27 PH, BLOOD (BEAKER) (test vghh=8508) 7.36 POCT-GLUCOSE [id number] 00:16:00 Test Item Value Reference Range Comments POC-GLUCOSE METER (BEAKER) 227 mg/dL 70-110 TESTED AT [facility] [address] [facility] (test eyhz=1452) [facility] [address] [id number] 20:37:00 Test Item Value Reference Range Comments POTASSIUM (BEAKER) (test fase=427) 4.4 meq/L 3.5-5.1 [id number] 20:37:00 Test Item Value Reference Range Comments MAGNESIUM (BEAKER) (test tvuv=789) 1.9 mg/dL 1.6-2.6 [id number] 20:37:00 Test Item Value Reference Range Comments PHOSPHORUS (BEAKER) (test fjvr=679) 1.8 mg/dL 2.3-4.7 BASIC METABOLIC [id number] 18:56:00 Test Item Value Reference Range Comments SODIUM (BEAKER) (test 136 meq/L 136-145 sxxi=995) POTASSIUM (BEAKER) (test 4.5 meq/L 3.5-5.1 aicz=118) CHLORIDE (BEAKER) (test 105 meq/L 98-107 nvdj=352) CO2 (BEAKER) (test 22 meq/L 22-29 hhkj=780) BLOOD UREA NITROGEN 44 mg/dL 7-21 (BEAKER) (test wowe=621) CREATININE (BEAKER) (test 1.60 mg/dL 0.57-1.25 jndq=212) GLUCOSE RANDOM (BEAKER) 235 mg/dL 70-105 (test rybm=688) CALCIUM (BEAKER) (test 8.2 mg/dL 8.4-10.2 vqrm=386) EGFR (BEAKER) (test 44 mL/min/1.73 sq m ESTIMATED GFR IS NOT jnse=8391) ACCURATE CREATININE CLEARANCE IN PREDICTING GLOMERULAR FILTRATION RATE. ESTIMATED GFR IS NOT APPLICABLE FOR DIALYSIS PATIENTS. Specimen slightly ictericPOCT-GLUCOSE [id number] 18:20:00 Test Item Value Reference Range Comments POC-GLUCOSE METER (BEAKER) 224 mg/dL 70-110 TESTED AT [address] (test cdqe=1596) [place] [address] [id number] 17:48:00 Test Item Value Reference Range Comments POTASSIUM (BEAKER) (test 4.7 meq/L 3.5-5.1 Specimen slightly hemolyzed fxux=497) CALCIUM, [id number] 17:35:00 Test Item Value Reference Range Comments CALCIUM IONIZED (BEAKER) (test djae=643) 1.12 mmol/L 1.12-1.27 PH, BLOOD (BEAKER) (test qbal=7067) 7.41 PLATELET [id number] 17:35:00 Test Item Value Reference Range Comments PLATELET COUNT (BEAKER) (test jukb=714) 31 K/CU MM 150-450 POCT-GLUCOSE [id number] 12:15:00 Test Item Value Reference Range Comments POC-GLUCOSE METER (BEAKER) 181 mg/dL 70-110 TESTED AT [address] (test rhvo=6425) [place] [id number] 10:15:00 Test Item Value Reference Range Comments POTASSIUM (BEAKER) (test kbct=566) 4.4 meq/L 3.5-5.1 [id number] 10:15:00 Test Item Value Reference Range Comments MAGNESIUM (BEAKER) (test vgbr=462) 2.3 mg/dL 1.6-2.6 [id number] 10:15:00 Test Item Value Reference Range Comments PHOSPHORUS (BEAKER) (test umdt=909) 2.2 mg/dL 2.3-4.7 BASIC METABOLIC [id number] 10:15:00 Test Item Value Reference Range Comments SODIUM (BEAKER) (test 138 meq/L 136-145 cwpe=192) POTASSIUM (BEAKER) (test 4.4 meq/L 3.5-5.1 uhcv=199) CHLORIDE (BEAKER) (test 107 meq/L 98-107 ozbn=425) CO2 (BEAKER) (test 23 meq/L 22-29 acry=816) BLOOD UREA NITROGEN 48 mg/dL 7-21 (BEAKER) (test toyx=033) CREATININE (BEAKER) (test 1.52 mg/dL 0.57-1.25 arnb=278) GLUCOSE RANDOM (BEAKER) 181 mg/dL 70-105 (test eacn=201) CALCIUM (BEAKER) (test 8.5 mg/dL 8.4-10.2 dmdi=381) EGFR (BEAKER) (test 47 mL/min/1.73 sq m ESTIMATED GFR IS NOT eyar=5260) ACCURATE CREATININE CLEARANCE IN PREDICTING GLOMERULAR FILTRATION RATE. ESTIMATED GFR IS NOT APPLICABLE FOR DIALYSIS PATIENTS. Specimen slightly ictericTACROLIMUS [id number] 09:21:00 Test Item Value Reference Range Comments TACROLIMUS BLOOD (BEAKER) (test sqwf=548) 7.8 ng/mL 10.0-20.0 CALCIUM, [id number] 09:15:00 Test Item Value Reference Range Comments CALCIUM IONIZED (BEAKER) (test wiij=151) 1.15 mmol/L 1.12-1.27 PH, BLOOD (BEAKER) (test rgmc=7030) 7.42 RAD, CHEST, 1 VIEW, NON [id number] 09:14:00Reason for exam:->respiratory failureShould this be performed at the bedside?->YesFINAL REPORT CLINICAL HISTORY: respiratory failure TECHNIQUE: 1 view of the chest. COMPARISON: 01/01/2018 IMPRESSION: The supporting lines and tubes are unchanged. Diffuse bilateral pulmonary infiltrates are unchanged. A small right pleural effusion is again suspected. The cardiomediastinal silhouette is magnified by technique with sternotomy wires. Signed: Jad Bernabe MDReport Verified Date/Time: 01/02/2018 09:14:20 Reading Location: [facility] Radiology Reading Room Electronically signed by: JAD BERNABE M.D. on 2017 09:14 AMBLOOD GAS, [id number] 05:19:00 Test Item Value Reference Range Comments PH ARTERIAL (BEAKER) (test eyfs=866) 7.41 7.35-7.45 PCO2 ARTERIAL (BEAKER) (test saar=937) 39 mmHg 35-45 PO2 ARTERIAL (BEAKER) (test dkiz=428) 118 mmHg 80-90 O2 SATURATION ARTERIAL (BEAKER) (test nvpk=317) 98.4 % 96.0-97.0 HCO3 ARTERIAL (BEAKER) (test mdwd=616) 24 mmol/L 21-29 BASE EXCESS ARTERIAL (BEAKER) (test gdel=871) -0.5 mmol/L -2.0-3.0 PATIENT TEMPERATURE (BEAKER) (test yytt=0369) 36.1 C FIO2 (BEAKER) (test agde=1345) 40.0 % CBC W/PLT COUNT & AUTO [id number] 05:04:00 Test Item Value Reference Range Comments WHITE BLOOD CELL COUNT (BEAKER) (test vlfl=666) 9.8 K/ L 3.5-10.5 RED BLOOD CELL COUNT (BEAKER) (test kyrr=736) 2.64 M/ L 4.63-6.08 HEMOGLOBIN (BEAKER) (test ovyk=301) 7.9 GM/DL 13.7-17.5 HEMATOCRIT (BEAKER) (test apzt=919) 24.2 % 40.1-51.0 MEAN CORPUSCULAR VOLUME (BEAKER) (test gjcz=551) 91.7 fL 79.0-92.2 MEAN CORPUSCULAR HEMOGLOBIN (BEAKER) (test 29.9 pg 25.7-32.2 gyyd=921) MEAN CORPUSCULAR HEMOGLOBIN CONC (BEAKER) (test 32.6 GM/DL 32.3-36.5 ezhu=226) RED CELL DISTRIBUTION WIDTH (BEAKER) (test 14.7 % 11.6-14.4 kmop=381) PLATELET COUNT (BEAKER) (test fazi=884) 19 K/CU MM 150-450 MEAN PLATELET VOLUME (BEAKER) (test kmpk=288) 12.4 fL 9.4-12.4 NUCLEATED RED BLOOD CELLS (BEAKER) (test 0 /100 WBC 0-0 vbqu=370) NEUTROPHILS RELATIVE PERCENT (BEAKER) (test 92 % uvns=120) LYMPHOCYTES RELATIVE PERCENT (BEAKER) (test 2 % gvam=477) MONOCYTES RELATIVE PERCENT (BEAKER) (test 4 % ccmg=882) EOSINOPHILS RELATIVE PERCENT (BEAKER) (test 0 % jhnz=699) BASOPHILS RELATIVE PERCENT (BEAKER) (test 0 % qpud=712) NEUTROPHILS ABSOLUTE COUNT (BEAKER) (test 9.08 K/ L 1.78-5.38 vkuo=647) LYMPHOCYTES ABSOLUTE COUNT (BEAKER) (test 0.23 K/ L 1.32-3.57 oxcy=246) MONOCYTES ABSOLUTE COUNT (BEAKER) (test srcw=699) 0.35 K/ L 0.30-0.82 EOSINOPHILS ABSOLUTE COUNT (BEAKER) (test 0.02 K/ L 0.04-0.54 jxxs=056) BASOPHILS ABSOLUTE COUNT (BEAKER) (test skgt=267) 0.01 K/ L 0.01-0.08 IMMATURE GRANULOCYTES-RELATIVE PERCENT (BEAKER) 2 % 0-1 (test ingm=6572) BASIC METABOLIC [id number] 05:04:00 Test Item Value Reference Range Comments SODIUM (BEAKER) (test 137 meq/L 136-145 stos=173) POTASSIUM (BEAKER) (test 4.0 meq/L 3.5-5.1 hqsw=076) CHLORIDE (BEAKER) (test 105 meq/L 98-107 gpmh=073) CO2 (BEAKER) (test 22 meq/L 22-29 ahvi=429) BLOOD UREA NITROGEN 48 mg/dL 7-21 (BEAKER) (test hmmg=460) CREATININE (BEAKER) (test 1.53 mg/dL 0.57-1.25 gsnj=243) GLUCOSE RANDOM (BEAKER) 220 mg/dL 70-105 (test kisu=456) CALCIUM (BEAKER) (test 8.5 mg/dL 8.4-10.2 fvnp=651) EGFR (BEAKER) (test 47 mL/min/1.73 sq m ESTIMATED GFR IS NOT bufq=7979) ACCURATE CREATININE CLEARANCE IN PREDICTING GLOMERULAR FILTRATION RATE. ESTIMATED GFR IS NOT APPLICABLE FOR DIALYSIS PATIENTS. Specimen slightly ictericCALCIUM, [id number] 04:48:00 Test Item Value Reference Range Comments CALCIUM IONIZED (BEAKER) (test haan=334) 1.10 mmol/L 1.12-1.27 PH, BLOOD (BEAKER) (test jnns=1160) 7.39 [id number] 01:06:00 Test Item Value Reference Range Comments POTASSIUM (BEAKER) (test qkct=695) 4.2 meq/L 3.5-5.1 CALCIUM, [id number] 00:53:00 Test Item Value Reference Range Comments CALCIUM IONIZED (BEAKER) (test kcem=272) 1.17 mmol/L 1.12-1.27 PH, BLOOD (BEAKER) (test ispt=0951) 7.36 POCT-GLUCOSE [id number] 00:37:00 Test Item Value Reference Range Comments POC-GLUCOSE METER (BEAKER) 233 mg/dL 70-110 TESTED AT [address] [address] (test sgzq=8464) [place] [address] [id number] 21:09:00 Test Item Value Reference Range Comments POTASSIUM (BEAKER) (test wgry=011) 4.2 meq/L 3.5-5.1 [id number] 21:09:00 Test Item Value Reference Range Comments MAGNESIUM (BEAKER) (test pbnb=794) 2.1 mg/dL 1.6-2.6 [id number] 21:09:00 Test Item Value Reference Range Comments PHOSPHORUS (BEAKER) (test ckeo=820) 2.3 mg/dL 2.3-4.7 POCT-GLUCOSE [id number] 18:00:00 Test Item Value Reference Range Comments POC-GLUCOSE METER (BEAKER) 262 mg/dL 70-110 TESTED AT [address] (test fqgk=0672) [place] [address] BASIC METABOLIC [id number] 17:51:00 Test Item Value Reference Range Comments SODIUM (BEAKER) (test 137 meq/L 136-145 lamf=387) POTASSIUM (BEAKER) (test 3.8 meq/L 3.5-5.1 rrpj=048) CHLORIDE (BEAKER) (test 105 meq/L 98-107 wobs=055) CO2 (BEAKER) (test 20 meq/L 22-29 kxie=992) BLOOD UREA NITROGEN 55 mg/dL 7-21 (BEAKER) (test irlq=277) CREATININE (BEAKER) (test 1.78 mg/dL 0.57-1.25 xktn=166) GLUCOSE RANDOM (BEAKER) 234 mg/dL 70-105 (test rleg=821) CALCIUM (BEAKER) (test 8.3 mg/dL 8.4-10.2 zxjz=239) EGFR (BEAKER) (test 39 mL/min/1.73 sq m ESTIMATED GFR IS NOT pqys=2791) ACCURATE CREATININE CLEARANCE IN PREDICTING GLOMERULAR FILTRATION RATE. ESTIMATED GFR IS NOT APPLICABLE FOR DIALYSIS PATIENTS. Specimen slightly ictericVANCOMYCIN LEVEL, [id number] 17:51:00 Test Item Value Reference Range Comments VANCOMYCIN TROUGH (BEAKER) (test kzhs=344) 11.6 ug/mL 10.0-20.0 CALCIUM, [id number] 17:26:00 Test Item Value Reference Range Comments CALCIUM IONIZED (BEAKER) (test oukv=927) 1.09 mmol/L 1.12-1.27 PH, BLOOD (BEAKER) (test vmuu=7337) 7.38 [id number] 14:04:00 Test Item Value Reference Range Comments POTASSIUM (BEAKER) (test lqny=294) 4.0 meq/L 3.5-5.1 BRONCHIAL CULTURE + GRAM [id number] 13:45:00 Test Item Value Reference Range Comments CULTURE (BEAKER) (test wcmj=3781) No growth GRAM STAIN RESULT (BEAKER) (test 1+ WBCs rsgy=6742) GRAM STAIN RESULT (BEAKER) (test No organisms seen ogkh=50237) POCT-GLUCOSE [id number] 13:12:00 Test Item Value Reference Range Comments POC-GLUCOSE METER (BEAKER) 210 mg/dL 70-110 TESTED AT [address] (test wcvf=4028) [facility] [address] BLOOD GAS, [id number] 11:50:00 Test Item Value Reference Range Comments PH ARTERIAL (BEAKER) (test etzw=953) 7.39 7.35-7.45 PCO2 ARTERIAL (BEAKER) (test fumz=742) 34 mmHg 35-45 PO2 ARTERIAL (BEAKER) (test uvtv=533) 94 mmHg 80-90 O2 SATURATION ARTERIAL (BEAKER) (test ocpp=470) 97.3 % 96.0-97.0 HCO3 ARTERIAL (BEAKER) (test vfzg=087) 20 mmol/L 21-29 BASE EXCESS ARTERIAL (BEAKER) (test nslo=061) -4.1 mmol/L -2.0-3.0 PATIENT TEMPERATURE (BEAKER) (test kzsx=8148) 36.8 C FIO2 (BEAKER) (test nhvm=2570) 40.0 % [id number] 09:26:00 Test Item Value Reference Range Comments POTASSIUM (BEAKER) (test meve=603) 4.3 meq/L 3.5-5.1 [id number] 09:26:00 Test Item Value Reference Range Comments MAGNESIUM (BEAKER) (test gshp=051) 2.1 mg/dL 1.6-2.6 [id number] 09:26:00 Test Item Value Reference Range Comments PHOSPHORUS (BEAKER) (test spwb=846) 3.0 mg/dL 2.3-4.7 TACROLIMUS [id number] 09:06:00 Test Item Value Reference Range Comments TACROLIMUS BLOOD (BEAKER) (test pfbs=123) 7.8 ng/mL 10.0-20.0 POCT-GLUCOSE [id number] 08:39:00 Test Item Value Reference Range Comments POC-GLUCOSE METER (BEAKER) 255 mg/dL 70-110 TESTED AT [facility] [address] [facility] (test kgph=5831) [facility] [address] CALCIUM, [id number] 08:34:00 Test Item Value Reference Range Comments CALCIUM IONIZED (BEAKER) (test iexb=473) 1.14 mmol/L 1.12-1.27 PH, BLOOD (BEAKER) (test iyvh=3432) 7.39 CBC W/PLT COUNT & AUTO [id number] 07:35:00 Test Item Value Reference Range Comments WHITE BLOOD CELL COUNT (BEAKER) (test lrwd=966) 15.0 K/ L 3.5-10.5 RED BLOOD CELL COUNT (BEAKER) (test jchx=733) 2.72 M/ L 4.63-6.08 HEMOGLOBIN (BEAKER) (test rlxk=488) 8.1 GM/DL 13.7-17.5 HEMATOCRIT (BEAKER) (test mrhl=912) 24.8 % 40.1-51.0 MEAN CORPUSCULAR VOLUME (BEAKER) (test sqor=556) 91.2 fL 79.0-92.2 MEAN CORPUSCULAR HEMOGLOBIN (BEAKER) (test 29.8 pg 25.7-32.2 nttn=272) MEAN CORPUSCULAR HEMOGLOBIN CONC (BEAKER) (test 32.7 GM/DL 32.3-36.5 wrxp=041) RED CELL DISTRIBUTION WIDTH (BEAKER) (test 15.1 % 11.6-14.4 vcbo=958) PLATELET COUNT (BEAKER) (test aszs=979) 30 K/CU MM 150-450 MEAN PLATELET VOLUME (BEAKER) (test hmni=695) 12.1 fL 9.4-12.4 NUCLEATED RED BLOOD CELLS (BEAKER) (test 0 /100 WBC 0-0 hnlo=971) (CELLAVISION MANUAL DIFF)2018-01-01 07:35:00 Test Item Value Reference Range Comments NEUTROPHILS - REL (CELLAVISION)(BEAKER) (test 94 % zhzi=5431) LYMPHOCYTES - REL (CELLAVISION)(BEAKER) (test 2 % evaa=9193) MONOCYTES - REL (CELLAVISION)(BEAKER) (test 4 % ohth=3327) NEUTROPHILS - ABS (CELLAVISION)(BEAKER) (test 14.10 K/ul 1.78-5.38 bzzm=1471) LYMPHOCYTES - ABS (CELLAVISION)(BEAKER) (test 0.30 K/ul 1.32-3.57 cglp=3648) MONOCYTES - ABS (CELLAVISION)(BEAKER) (test 0.60 K/uL 0.30-0.82 fbvp=7043) TOTAL COUNTED (BEAKER) (test qaps=7005) 100 MANUAL NRBC PER 100 CELLS (BEAKER) (test 1 /100 WBC 0-0 dkmu=9488) WBC MORPHOLOGY (BEAKER) (test shbf=631) Normal PLT MORPHOLOGY (BEAKER) (test ufrd=182) Normal ANISOCYTOSIS (BEAKER) (test izlp=743) 1+ few MICROCYTES (BEAKER) (test imrw=527) 1+ few POIKILOCYTES (BEAKER) (test ascg=289) 2+ moderate OVALOCYTES (BEAKER) (test kfpv=944) 1+ few ARTIFACT (CELLAVISION)(BEAKER) (test jqgt=0147) Present PLATELET CONCENTRATION (CELLAVISION)(BEAKER) Decreased (test kqwc=4957) Received comment: User comments: Slide comments:BLOOD GAS, [id number] 06 :11:00 Test Item Value Reference Range Comments PH ARTERIAL (BEAKER) (test jiub=127) 7.36 7.35-7.45 PCO2 ARTERIAL (BEAKER) (test gwfu=619) 36 mmHg 35-45 PO2 ARTERIAL (BEAKER) (test rzwd=458) 107 mmHg 80-90 O2 SATURATION ARTERIAL (BEAKER) (test xgvu=260) 97.9 % 96.0-97.0 HCO3 ARTERIAL (BEAKER) (test hinx=647) 20 mmol/L 21-29 BASE EXCESS ARTERIAL (BEAKER) (test onwd=366) -5.0 mmol/L -2.0-3.0 PATIENT TEMPERATURE (BEAKER) (test ktzi=3700) 36.4 C FIO2 (BEAKER) (test xped=8948) 40.0 % BLOOD [id number] 06:00:00 Test Item Value Reference Range Comments CULTURE (BEAKER) (test torj=4314) No growth in 5 days BLOOD [id number] 06:00:00 Test Item Value Reference Range Comments CULTURE (BEAKER) (test likw=2380) No growth in 5 days RAD, CHEST, 1 VIEW, NON [id number] 05:37:00Reason for exam:->shortness of breathShould this be performed at the bedside?->YesFINAL REPORT Comparison exam: 12/31/2017 Diffuse bilateral pulmonary opacities, unchanged. Blunting of the right costophrenic angle. Stable cardiomediastinal contours. Appropriate position of the support hardware. Signed: Mio Em MDReport Verified Date/Time: 01/01/2018 05:37:06 Reading Location: [address] Transitional Reading Room BASIC METABOLIC [id number] 05:06:00 Test Item Value Reference Range Comments SODIUM (BEAKER) (test 136 meq/L 136-145 zlvs=023) POTASSIUM (BEAKER) (test 4.6 meq/L 3.5-5.1 insw=598) CHLORIDE (BEAKER) (test 104 meq/L 98-107 hhcu=348) CO2 (BEAKER) (test 19 meq/L 22-29 etzj=570) BLOOD UREA NITROGEN 63 mg/dL 7-21 (BEAKER) (test rymz=956) CREATININE (BEAKER) (test 1.99 mg/dL 0.57-1.25 tmyf=020) GLUCOSE RANDOM (BEAKER) 188 mg/dL 70-105 (test gcqe=870) CALCIUM (BEAKER) (test 9.0 mg/dL 8.4-10.2 tmwp=557) EGFR (BEAKER) (test 34 mL/min/1.73 sq m ESTIMATED GFR IS NOT gdtc=8619) ACCURATE CREATININE CLEARANCE IN PREDICTING GLOMERULAR FILTRATION RATE. ESTIMATED GFR IS NOT APPLICABLE FOR DIALYSIS PATIENTS. Specimen slightly [id number] 01:21:00 Test Item Value Reference Range Comments POTASSIUM (BEAKER) (test zepz=161) 4.3 meq/L 3.5-5.1 CRYPTOCOCCAL [id number] 01:09:00 Test Item Value Reference Range Comments CRYPTOCOCCAL ANTIGEN, SERUM (BEAKER) (test Negative Negative, Interference sipg=9116) CALCIUM, [id number] 00:26:00 Test Item Value Reference Range Comments CALCIUM IONIZED (BEAKER) (test kdcl=446) 1.09 mmol/L 1.12-1.27 PH, BLOOD (BEAKER) (test pakp=8046) 7.38 POCT-GLUCOSE [id number] 00:02:00 Test Item Value Reference Range Comments POC-GLUCOSE METER (BEAKER) 165 mg/dL 70-110 TESTED AT [facility] [address] [facility] (test khpz=8330) [facility] [address] [id number] 21:18:00 Test Item Value Reference Range Comments POTASSIUM (BEAKER) (test gqrp=579) 4.6 meq/L 3.5-5.1 [id number] 21:18:00 Test Item Value Reference Range Comments MAGNESIUM (BEAKER) (test ccof=712) 2.1 mg/dL 1.6-2.6 [id number] 21:18:00 Test Item Value Reference Range Comments PHOSPHORUS (BEAKER) (test bbkr=699) 4.2 mg/dL 2.3-4.7 POCT-GLUCOSE [id number] 18:03:00 Test Item Value Reference Range Comments POC-GLUCOSE METER (BEAKER) 142 mg/dL 70-110 TESTED AT [facility] [address] (test weyl=2979) [facility] [address] BLOOD GAS, [id number] 17:55:00 Test Item Value Reference Range Comments PH ARTERIAL (BEAKER) (test xbcf=999) 7.37 7.35-7.45 PCO2 ARTERIAL (BEAKER) (test dexf=454) 38 mmHg 35-45 PO2 ARTERIAL (BEAKER) (test djdh=049) 94 mmHg 80-90 O2 SATURATION ARTERIAL (BEAKER) (test qxps=004) 96.8 % 96.0-97.0 HCO3 ARTERIAL (BEAKER) (test pmsg=366) 21 mmol/L 21-29 BASE EXCESS ARTERIAL (BEAKER) (test vgyx=471) -3.7 mmol/L -2.0-3.0 PATIENT TEMPERATURE (BEAKER) (test qyle=2560) 37.5 C FIO2 (BEAKER) (test qige=3193) 40.0 % [id number] 17:29:00 Test Item Value Reference Range Comments POTASSIUM (BEAKER) (test wniq=795) 4.9 meq/L 3.5-5.1 CALCIUM, [id number] 16:38:00 Test Item Value Reference Range Comments CALCIUM IONIZED (BEAKER) (test reez=696) 1.05 mmol/L 1.12-1.27 PH, BLOOD (BEAKER) (test vypv=1348) 7.37 [id number] 14:13:00Medical Cytology Report Case: [id number] Authorizing Provider: Yary Lozano MD Collected: 12/30/2017 1434 Ordering Location: [address] Received: 12/30/2017 1620 Pathologist: Rivera Painter MD Specimen: Lung, Right Middle Lobe, BAL RIGHT MIDDLE LOBELUNG, BAL (CYTOSPINS): - NEGATIVE FOR MALIGNANCY LIMITED BY OBSCURING ACUTE INFLAMMATION AND SCANT PULMONARY ELEMENTS The GMS stains are negative for Pneumocystis organisms and other fungi. No viral inclusions are seen. - The iron stain is negative Signing Pathologist Direct Phone Line: [phone] signed by Rivera Painter MD on 12/31/2017 at 2:13 [id number], [id number], [id number] post lung transplant, evaluate for infection and rejection.RIGHT MIDDLE LOBE LUNG BALPrepared 3 cytospins, 1 iron stain and 1 GMS from 40 ml cytorich red fixative sampleCollected: [id number]: [id number] following special studies were performed on this case and the interpretation is incorporated in the diagnostic report above:GMS, [facility] [place] [facility], Department of Pathology, [address] [place] [address], [facility], [facility], [address] [place] [address], [facility], Department of [facility], [address] [place] [address], [id number] 13:49:00 Test Item Value Reference Range Comments POTASSIUM (BEAKER) (test ssjk=428) 4.9 meq/L 3.5-5.1 RAD, ABDOMEN/KUB, 1 VIEW [id number] 13:24:00Reason for exam:->corpak placement Should this be performed at the bedside?->YesFINAL REPORT TECHNIQUE: Supine view of the abdomen dated 12/31/2017 COMPARISON: Abdominal radiograph dated 04/28/2014 HISTORY: Enteric tube placement. IMPRESSION:Enteric tube is seen with the tip in the region of the ligament of Treitz. No air-filled, dilated loops of bowel to suggest obstruction. No free intraperitoneal air. No abnormal soft tissue mass or calcification. No fracture. Signed: Micheal Crenshaw Verified Date/Time: 12/31/2017 13 :24:39 Reading Location: [facility] Radiology Reading Room POCT-GLUCOSE [id number] 12: 27:00 Test Item Value Reference Range Comments POC-GLUCOSE METER (BEAKER) 170 mg/dL 70-110 TESTED AT [facility] [address] (test pnax=4480) [facility] [address] SPIN/CONCENTRATION [id number] 12:24:00 Test Item Value Reference Range Comments CONCENTRATION CHARGED (BEAKER) (test gike=3027) Done [id number] 09:52:00 Test Item Value Reference Range Comments POTASSIUM (BEAKER) (test aljs=587) 4.7 meq/L 3.5-5.1 [id number] 09:52:00 Test Item Value Reference Range Comments MAGNESIUM (BEAKER) (test vhot=677) 2.3 mg/dL 1.6-2.6 [id number] 09:52:00 Test Item Value Reference Range Comments PHOSPHORUS (BEAKER) (test jabv=741) 5.3 mg/dL 2.3-4.7 TACROLIMUS [id number] 08:55:00 Test Item Value Reference Range Comments TACROLIMUS BLOOD (BEAKER) (test zxdw=289) 7.2 ng/mL 10.0-20.0 CALCIUM, [id number] 08:29:00 Test Item Value Reference Range Comments CALCIUM IONIZED (BEAKER) (test tahw=195) 1.01 mmol/L 1.12-1.27 PH, BLOOD (BEAKER) (test duda=8035) 7.36 Check serum Ionized Calcium level after 4 hours after IV Calcium replacement.RAD , CHEST, 1 VIEW, NON [id number] 06:37:00Reason for exam:->shortness of breathShould this be performed at the bedside?->YesFINAL REPORT Comparison exam: 12/30/2017 Extensive bilateral airspace opacities unchanged. Stable cardiomediastinal contours. Appropriate position of the support hardware. Signed: Mio Em MDReport Verified Date/Time: 2017 06:37:39 Reading Location: [address] Transitional Reading Room BASIC METABOLIC [id number] 04:02:00 Test Item Value Reference Range Comments SODIUM (BEAKER) (test 138 meq/L 136-145 itcu=215) POTASSIUM (BEAKER) (test 5.3 meq/L 3.5-5.1 naju=718) CHLORIDE (BEAKER) (test 103 meq/L 98-107 ufnf=445) CO2 (BEAKER) (test 17 meq/L 22-29 ifmq=529) BLOOD UREA NITROGEN 91 mg/dL 7-21 (BEAKER) (test tynv=195) CREATININE (BEAKER) (test 2.53 mg/dL 0.57-1.25 phej=042) GLUCOSE RANDOM (BEAKER) 143 mg/dL 70-105 (test fbas=937) CALCIUM (BEAKER) (test 8.1 mg/dL 8.4-10.2 tfyu=591) EGFR (BEAKER) (test 26 mL/min/1.73 sq m ESTIMATED GFR IS NOT rqoy=5661) ACCURATE CREATININE CLEARANCE IN PREDICTING GLOMERULAR FILTRATION RATE. ESTIMATED GFR IS NOT APPLICABLE FOR DIALYSIS PATIENTS. Specimen slightly ictericHEPATIC FUNCTION [id number] 03:57:00 Test Item Value Reference Range Comments TOTAL PROTEIN (BEAKER) (test oivk=215) 4.4 gm/dL 6.0-8.3 ALBUMIN (BEAKER) (test oljs=5400) 3.0 g/dL 3.5-5.0 BILIRUBIN TOTAL (BEAKER) (test wrep=158) 3.7 mg/dL 0.2-1.2 BILIRUBIN DIRECT (BEAKER) (test rxzw=254) 2.8 mg/dL 0.1-0.5 ALKALINE PHOSPHATASE (BEAKER) (test brze=664) 116 U/L 40-150 AST (SGOT) (BEAKER) (test gqin=516) 58 U/L 5-34 ALT (SGPT) (BEAKER) (test jxiw=134) 62 U/L 6-55 Specimen slightly ictericCBC W/PLT COUNT & AUTO [id number] 03:43 :00 Test Item Value Reference Range Comments WHITE BLOOD CELL COUNT (BEAKER) (test oaol=162) 16.2 K/ L 3.5-10.5 RED BLOOD CELL COUNT (BEAKER) (test wfsj=365) 2.44 M/ L 4.63-6.08 HEMOGLOBIN (BEAKER) (test wbqg=102) 7.4 GM/DL 13.7-17.5 HEMATOCRIT (BEAKER) (test hvru=895) 22.7 % 40.1-51.0 MEAN CORPUSCULAR VOLUME (BEAKER) (test mezv=087) 93.0 fL 79.0-92.2 MEAN CORPUSCULAR HEMOGLOBIN (BEAKER) (test 30.3 pg 25.7-32.2 jefb=621) MEAN CORPUSCULAR HEMOGLOBIN CONC (BEAKER) (test 32.6 GM/DL 32.3-36.5 tazo=866) RED CELL DISTRIBUTION WIDTH (BEAKER) (test 15.4 % 11.6-14.4 nowp=004) PLATELET COUNT (BEAKER) (test sqgv=538) 40 K/CU MM 150-450 MEAN PLATELET VOLUME (BEAKER) (test zqpq=187) 12.0 fL 9.4-12.4 NUCLEATED RED BLOOD CELLS (BEAKER) (test 0 /100 WBC 0-0 dqdt=939) NEUTROPHILS RELATIVE PERCENT (BEAKER) (test 92 % inoa=610) LYMPHOCYTES RELATIVE PERCENT (BEAKER) (test 1 % voev=308) MONOCYTES RELATIVE PERCENT (BEAKER) (test 7 % vgux=421) EOSINOPHILS RELATIVE PERCENT (BEAKER) (test 0 % zvcn=045) BASOPHILS RELATIVE PERCENT (BEAKER) (test 0 % xuip=600) NEUTROPHILS ABSOLUTE COUNT (BEAKER) (test 14.94 K/ L 1.78-5.38 hlyp=505) LYMPHOCYTES ABSOLUTE COUNT (BEAKER) (test 0.16 K/ L 1.32-3.57 emug=651) MONOCYTES ABSOLUTE COUNT (BEAKER) (test uwli=024) 1.09 K/ L 0.30-0.82 EOSINOPHILS ABSOLUTE COUNT (BEAKER) (test 0.00 K/ L 0.04-0.54 jynq=392) BASOPHILS ABSOLUTE COUNT (BEAKER) (test zbys=771) 0.01 K/ L 0.01-0.08 IMMATURE GRANULOCYTES-RELATIVE PERCENT (BEAKER) 0 % 0-1 (test czkd=5103) BLOOD GAS, [id number] 03:30:00 Test Item Value Reference Range Comments PH ARTERIAL (BEAKER) (test kjtm=321) 7.34 7.35-7.45 PCO2 ARTERIAL (BEAKER) (test ayjk=961) 42 mmHg 35-45 PO2 ARTERIAL (BEAKER) (test uapg=915) 191 mmHg 80-90 O2 SATURATION ARTERIAL (BEAKER) (test ibls=679) 99.2 % 96.0-97.0 HCO3 ARTERIAL (BEAKER) (test pcbh=906) 22 mmol/L 21-29 BASE EXCESS ARTERIAL (BEAKER) (test xrrg=766) -3.8 mmol/L -2.0-3.0 PATIENT TEMPERATURE (BEAKER) (test mmrj=0813) 37.0 C FIO2 (BEAKER) (test syky=8876) 65.0 % OXYGEN SATURATION, [id number] 01:31:00 Test Item Value Reference Range Comments O2 SATURATION (MEASURED) (BEAKER) (test vska=5313) 87.4 % CALCIUM, [id number] 01:26:00 Test Item Value Reference Range Comments CALCIUM IONIZED (BEAKER) (test xfoh=062) 0.93 mmol/L 1.12-1.27 PH, BLOOD (BEAKER) (test rmqc=1425) 7.32 Check serum Ionized Calcium level after 4 hours after IV Calcium replacement.BLOOD GAS, [id number] 01:12:00 Test Item Value Reference Range Comments PH ARTERIAL (BEAKER) (test dbke=723) 7.29 7.35-7.45 PCO2 ARTERIAL (BEAKER) (test tgaz=827) 41 mmHg 35-45 PO2 ARTERIAL (BEAKER) (test rbdh=954) 193 mmHg 80-90 O2 SATURATION ARTERIAL (BEAKER) (test xgcg=490) 99.1 % 96.0-97.0 HCO3 ARTERIAL (BEAKER) (test pkpl=969) 19 mmol/L 21-29 BASE EXCESS ARTERIAL (BEAKER) (test qsdv=128) -7.1 mmol/L -2.0-3.0 PATIENT TEMPERATURE (BEAKER) (test qvva=2432) 37.0 C FIO2 (BEAKER) (test hezl=5891) 80.0 % BASIC METABOLIC [id number] 00:59:00 Test Item Value Reference Range Comments SODIUM (BEAKER) (test 137 meq/L 136-145 qfqe=105) POTASSIUM (BEAKER) (test 5.5 meq/L 3.5-5.1 jktj=389) CHLORIDE (BEAKER) (test 103 meq/L 98-107 avxh=493) CO2 (BEAKER) (test 16 meq/L 22-29 sjmf=717) BLOOD UREA NITROGEN 98 mg/dL 7-21 (BEAKER) (test atcr=621) CREATININE (BEAKER) (test 2.62 mg/dL 0.57-1.25 jcvs=974) GLUCOSE RANDOM (BEAKER) 150 mg/dL 70-105 (test xcbg=010) CALCIUM (BEAKER) (test 7.5 mg/dL 8.4-10.2 vpat=789) EGFR (BEAKER) (test 25 mL/min/1.73 sq m ESTIMATED GFR IS NOT uqqo=1632) ACCURATE CREATININE CLEARANCE IN PREDICTING GLOMERULAR FILTRATION RATE. ESTIMATED GFR IS NOT APPLICABLE FOR DIALYSIS PATIENTS. Specimen slightly [id number] 00:57:00 Test Item Value Reference Range Comments MAGNESIUM (BEAKER) (test nwwe=532) 2.2 mg/dL 1.6-2.6 LACTIC ACID, ARTERIAL, WHOLE [id number] 00:55:00 Test Item Value Reference Range Comments LACTATE BLOOD ARTERIAL (2) (BEAKER) (test 1.3 mmol/L 0.5-2.2 wsmk=1736) Effective 11/02/2015: Units/Reference Range ChangeNew: 0.5-2.2 mmol/L Previous: 5 -20 mg/dLSpecimen slightly [id number] 22:04:00 Test Item Value Reference Range Comments POTASSIUM (BEAKER) (test npxr=763) 5.7 meq/L 3.5-5.1 [id number] 20:35:00 Test Item Value Reference Range Comments PHOSPHORUS (BEAKER) (test xssr=114) 6.9 mg/dL 2.3-4.7 [id number] 20:35:00 Test Item Value Reference Range Comments MAGNESIUM (BEAKER) (test pkdd=504) 2.2 mg/dL 1.6-2.6 BODY FLUID CELL COUNT WITH [id number] 18:56:00 Test Item Value Reference Range Comments APPEARANCE FLUID (BEAKER) (test lrhf=459) Moderately Bloody Clear COLOR FLUID (BEAKER) (test dlrv=345) Colorless Colorless, Straw RBC FLUID (BEAKER) (test rmqt=210) 245[address] /cu mm <=1 ADJUSTED WBC FLUID (BEAKER) (test 859 /cu mm <=5 ujib=5754) LINING CELLS (BEAKER) (test lpmc=9789) 0 /cu mm <=1 NEUTROPHILS FLUID (BEAKER) (test 88 % lybf=0849) LYMPHS FLUID (BEAKER) (test qzdq=390) 3 % MONO/MACROPHAGE FLUID (BEAKER) (test 9 % jxwu=619) EOSINOPHILS FLUID (BEAKER) (test 0 % lskt=257) BASO FLUID (BEAKER) (test mvox=166) 0 % CONTAINER BODY FLUID (BEAKER) (test EDTA Tube axsw=6051) POCT-GLUCOSE [id number] 18:40:00 Test Item Value Reference Range Comments POC-GLUCOSE METER (BEAKER) 156 mg/dL 70-110 TESTED AT [facility] [address] [facility] (test hukf=4246) [facility] [address] BLOOD GAS, [id number] 18:15:00 Test Item Value Reference Range Comments PH ARTERIAL (BEAKER) (test cgdb=432) 7.27 7.35-7.45 PCO2 ARTERIAL (BEAKER) (test juao=666) 38 mmHg 35-45 PO2 ARTERIAL (BEAKER) (test jqzy=178) 147 mmHg 80-90 O2 SATURATION ARTERIAL (BEAKER) (test npzd=936) 98.7 % 96.0-97.0 HCO3 ARTERIAL (BEAKER) (test nfbf=834) 17 mmol/L 21-29 BASE EXCESS ARTERIAL (BEAKER) (test dtlz=834) -9.3 mmol/L -2.0-3.0 PATIENT TEMPERATURE (BEAKER) (test wbeu=0338) 36.0 C FIO2 (BEAKER) (test ihge=0799) 80.0 % U/S, RENAL, [id number] 18:05:00Reason for exam:->NOHEMI AND ASSESS PVRFINAL REPORT Renal ultrasound Comparison: No comparison ultrasounds ClinicalHistory: Acute kidney injury Technique: Sonographic evaluation of the kidneys was performed. 36 images were submitted for interpretation, using a five MHz transducer. Right kidney:The kidney measures 9.4 cm in length. The cortical echogenicity is increased. The cortex measures 1.1 cm. There is no evidence of a focal mass. There is no evidence of hydronephrosis. There is no evidence of a shadowing stone. There is no evidence of a cyst. There is no evidence of a perinephric fluid collection. Flow was visualized to the right kidney. Left kidney:The kidney measures 11.4 cm in length. The cortical echogenicity is increased. The cortex measures one cm. There is no evidence of a focal mass. There is no evidence of hydronephrosis. There is no evidence of a shadowing stone. There is no evidence of a cyst. There is no evidence of a perinephric fluid collection. Flow was visualized to the left kidney. Survey images of the bladder demonstrate a Parnell catheter. Impression:Small right kidney.There is no evidence of hydronephrosis. There is increased echogenicity bilaterally. Signed : Genesis Bates MDReport Verified Date/Time: 12/30/2017 18:05:19 Reading Location : [address] Ultrasound Reading Room CYTOLOGY [id number] 18:00:00 Test Item Value Reference Range Comments CYTOLOGY RESULT POINTER (BEAKER) (test See Separate Report rajc=[id number]) BASIC METABOLIC [id number] 15:00:00 Test Item Value Reference Range Comments SODIUM (BEAKER) (test 139 meq/L 136-145 lzuc=328) POTASSIUM (BEAKER) (test 5.2 meq/L 3.5-5.1 fqfs=174) CHLORIDE (BEAKER) (test 98 meq/L 98-107 nzxp=745) CO2 (BEAKER) (test 17 meq/L 22-29 mmsw=250) BLOOD UREA NITROGEN 114 mg/dL 7-21 (BEAKER) (test czgr=064) CREATININE (BEAKER) (test 3.17 mg/dL 0.57-1.25 jjky=230) GLUCOSE RANDOM (BEAKER) 144 mg/dL 70-105 (test ygdp=708) CALCIUM (BEAKER) (test 8.4 mg/dL 8.4-10.2 hyii=806) EGFR (BEAKER) (test 20 mL/min/1.73 sq m ESTIMATED GFR IS NOT fhzn=2122) ACCURATE CREATININE CLEARANCE IN PREDICTING GLOMERULAR FILTRATION RATE. ESTIMATED GFR IS NOT APPLICABLE FOR DIALYSIS PATIENTS. Specimen slightly [id number] 14:59:00 Test Item Value Reference Range Comments MAGNESIUM (BEAKER) (test xtjk=174) 2.4 mg/dL 1.6-2.6 RAD, CHEST, 1 VIEW, NON [id number] 14:45:00Reason for exam:->s/p intubation and dialysis line placementFINAL REPORT AP chest, two images HISTORY: Intubation COMPARISON: 12/30/2017 IMPRESSION: Endotracheal tube placed in satisfactory position. Left IJ catheter present with tip at upper SVC. Right arm PICC present. Stable cardiac silhouette. Diffuse airspace disease in both lungs may reflect edema, pneumonia or ARDS. No pneumothorax. Signed: Damari Ocampo MDReport Verified Date/Time: 12/30/2017 14:45:29 Reading Location: [facility] Reading Room CALCIUM, [id number] 14: 42:00 Test Item Value Reference Range Comments CALCIUM IONIZED (BEAKER) (test kylp=538) 1.02 mmol/L 1.12-1.27 PH, BLOOD (BEAKER) (test ftln=2805) 7.21 Check serum Ionized Calcium level after 4 hours after IV Calcium replacement.BLOOD GAS, [id number] 14:42:00 Test Item Value Reference Range Comments PH ARTERIAL (BEAKER) (test tnui=753) 7.21 7.35-7.45 PCO2 ARTERIAL (BEAKER) (test qpdf=663) 45 mmHg 35-45 PO2 ARTERIAL (BEAKER) (test ahin=220) 88 mmHg 80-90 O2 SATURATION ARTERIAL (BEAKER) (test fgly=231) 94.8 % 96.0-97.0 HCO3 ARTERIAL (BEAKER) (test tutl=429) 18 mmol/L 21-29 BASE EXCESS ARTERIAL (BEAKER) (test nyeo=709) -9.8 mmol/L -2.0-3.0 PATIENT TEMPERATURE (BEAKER) (test lkjr=1975) 37.0 C FIO2 (BEAKER) (test mgom=3254) 100.0 % CMV PCR, [id number] 13:37:00 Test Item Value Reference Range Comments CMV VIRAL LOAD - NEGATIVE Negative or below the linear (BEAKER) (test sdxu=9255) range of the assay (<375 copies/mL) Cytomegalovirus (CMV) infection can cause significant disease in immunosuppressed patients. However,it is common for CMV to manifest as a limited infection which is of no clinical significance in immunosuppressed patients or in healthy individuals.Viral load measurements are helpful to identify clinical CMV infection and to guide the pre-emptive management of antiviral therapy. For treatment of CMVinfection due to reactivation in transplant recipients, a threshold between 4,000 and 5,000 copies/mL is suggested. For treatment of primary CMV infection, a lower threshold can be used.CMV infection may also be monitored using weekly serial measurements. Serial measurements of CMV DNA viral load canbe evaluated by identifying a 10- fold change, as well as assessing the CMV DNA viral load and the clinical context for each patient.The plasma CMV DNA viral load was detected using quantitative polymerase chain reaction and fluorescent monitoring of a specific hybridized probe. Genetic variation and other factors can affect the accuracy of nucleic acid testing. Therefore, the results should be interpreted in light of clinical data. A negative result may not exclude the presence of CMV disease.This test was developed and its performance characteristics determined by the [facility] [place] [facility] Pathology Department, Section of Molecular Pathology. It has not been cleared or approved by the U.S. Food and Drug Administration (FDA), since FDA approval is not required for clinical use of the test. Validation was done as required by The Clinical Laboratory Improvement Amendments of 1988.BLOOD GAS, [id number] 13:09:00 Test Item Value Reference Range Comments PH ARTERIAL (BEAKER) (test gcdj=721) 7.17 7.35-7.45 PCO2 ARTERIAL (BEAKER) (test bdsq=271) 55 mmHg 35-45 PO2 ARTERIAL (BEAKER) (test aztu=998) 123 mmHg 80-90 O2 SATURATION ARTERIAL (BEAKER) (test dmyj=322) 97.4 % 96.0-97.0 HCO3 ARTERIAL (BEAKER) (test ylkv=064) 20 mmol/L 21-29 BASE EXCESS ARTERIAL (BEAKER) (test xdzw=296) -8.9 mmol/L -2.0-3.0 PATIENT TEMPERATURE (BEAKER) (test uyij=1723) 37.0 C FIO2 (BEAKER) (test nuor=7151) 100.0 % BLOOD GAS, [id number] 12:16:00 Test Item Value Reference Range Comments PH ARTERIAL (BEAKER) (test sskt=794) 7.18 7.35-7.45 PCO2 ARTERIAL (BEAKER) (test ehhe=592) 57 mmHg 35-45 PO2 ARTERIAL (BEAKER) (test zhii=805) 62 mmHg 80-90 O2 SATURATION ARTERIAL (BEAKER) (test jmwy=735) 86.0 % 96.0-97.0 HCO3 ARTERIAL (BEAKER) (test blwd=266) 21 mmol/L 21-29 BASE EXCESS ARTERIAL (BEAKER) (test vlva=889) -7.4 mmol/L -2.0-3.0 PATIENT TEMPERATURE (BEAKER) (test ctex=4148) 36.6 C FIO2 (BEAKER) (test yvts=7099) 100.0 % POCT-LACTIC ACID, [id number] 11:59:00 Test Item Value Reference Range Comments POC-LACTIC ACID, ARTERIAL 2.1 mmol/L 0.4-1.3 [address] (BEAKER) (test tkkm=6232) [place] [id number] POCT-BLOOD GASES, [id number] 11:59:00 Test Item Value Reference Range Comments TEMP, CELSIUS-POC (BEAKER) 37.0 (test nncf=7623) FIO2-POC (BEAKER) (test TESTED AT [address] hxvw=9144) [facility] [address] PH, ARTERIAL-POC (BEAKER) 7.151 7.350-7.450 (test dmao=7958) PCO2, ARTERIAL-POC (BEAKER) 48.3 mm Hg 35.0-45.0 (test ozmq=1565) PO2, ARTERIAL-POC (BEAKER) 49.0 mm Hg 80.0-90.0 (test kohi=8801) SO2, ARTERIAL-POC (BEAKER) 73.0 % 96.0-97.0 (test vlqi=1202) HCO3, ARTERIAL-POC (BEAKER) 16.9 meq/L 21.0-29.0 (test iwaj=1802) BASE EXCESS, ARTERIAL-POC -12.0 meq/L -2.0-3.0 (BEAKER) (test qbdn=7393) [id number] 11:59:00 Test Item Value Reference Range Comments POC-SODIUM (BEAKER) (test 136 meq/L 135-148 TESTED AT [address] pmem=6395) [place] [address] [id number] 11:59:00 Test Item Value Reference Range Comments POC-POTASSIUM (BEAKER) (test 5.7 meq/L 3.6-5.5 TESTED AT [address] sled=1473) [place] [address] [id number] 11:59:00 Test Item Value Reference Range Comments POC-GLUCOSE (BEAKER) (test 123 mg/dL 70-110 TESTED AT [address] bqxk=1260) [place] [address] POCT-CALCIUM [id number] 11:59:00 Test Item Value Reference Range Comments POC-CALCIUM IONIZED (BEAKER) 1.06 mmol/L 1.12-1.27 TESTED AT [address] (test gqet=4769) [place] [address] [id number] 11:59:00 Test Item Value Reference Range Comments POC-HEMATOCRIT (BEAKER) (test 25 % 40-50 TESTED AT [address] jsuo=1135) [place] [address] [id number] 11:59:00 Test Item Value Reference Range Comments POC-HEMOGLOBIN (BEAKER) 8.5 g/dL 13.0-16.8 TESTED AT [address] (test uczf=8796) [place] [address]TESTED AT [place] [address] TACROLIMUS [id number] 10:52:00 Test Item Value Reference Range Comments TACROLIMUS BLOOD (BEAKER) (test lxaz=735) 8.6 ng/mL 10.0-20.0 RAD, CHEST, 1 VIEW, NON [id number] 04:44:00Reason for exam:->shortness of breathShould this be performed at the bedside?->YesFINAL REPORT Comparison exam: 12/28/2017 Increasing bilateral airspace consolidation. Stable cardiomediastinal contours. Right PICC line terminates in the right atrium. Signed: Mio Em Verified Date/Time : 12/30/2017 04:44:59 Reading Location: [address] Ortho Consult Reading Room CBC W/PLT COUNT & AUTO [id number] 03:53:00 Test Item Value Reference Range Comments WHITE BLOOD CELL COUNT (BEAKER) (test nmyf=579) 15.3 K/ L 3.5-10.5 RED BLOOD CELL COUNT (BEAKER) (test legk=482) 2.68 M/ L 4.63-6.08 HEMOGLOBIN (BEAKER) (test aauq=900) 8.3 GM/DL 13.7-17.5 HEMATOCRIT (BEAKER) (test xctp=503) 24.9 % 40.1-51.0 MEAN CORPUSCULAR VOLUME (BEAKER) (test lgia=157) 92.9 fL 79.0-92.2 MEAN CORPUSCULAR HEMOGLOBIN (BEAKER) (test 31.0 pg 25.7-32.2 tckh=190) MEAN CORPUSCULAR HEMOGLOBIN CONC (BEAKER) (test 33.3 GM/DL 32.3-36.5 wsip=155) RED CELL DISTRIBUTION WIDTH (BEAKER) (test 15.1 % 11.6-14.4 jbbn=768) PLATELET COUNT (BEAKER) (test hrvt=533) 32 K/CU MM 150-450 MEAN PLATELET VOLUME (BEAKER) (test gdpg=321) 12.3 fL 9.4-12.4 NUCLEATED RED BLOOD CELLS (BEAKER) (test 0 /100 WBC 0-0 zjps=583) NEUTROPHILS RELATIVE PERCENT (BEAKER) (test 94 % lhkb=431) LYMPHOCYTES RELATIVE PERCENT (BEAKER) (test 1 % qnnb=533) MONOCYTES RELATIVE PERCENT (BEAKER) (test 4 % kbhh=081) EOSINOPHILS RELATIVE PERCENT (BEAKER) (test 0 % lsqa=805) BASOPHILS RELATIVE PERCENT (BEAKER) (test 0 % lltt=995) NEUTROPHILS ABSOLUTE COUNT (BEAKER) (test 14.45 K/ L 1.78-5.38 vatx=161) LYMPHOCYTES ABSOLUTE COUNT (BEAKER) (test 0.15 K/ L 1.32-3.57 figo=947) MONOCYTES ABSOLUTE COUNT (BEAKER) (test haqm=165) 0.55 K/ L 0.30-0.82 EOSINOPHILS ABSOLUTE COUNT (BEAKER) (test 0.00 K/ L 0.04-0.54 bryu=173) BASOPHILS ABSOLUTE COUNT (BEAKER) (test zsje=600) 0.02 K/ L 0.01-0.08 IMMATURE GRANULOCYTES-RELATIVE PERCENT (BEAKER) 1 % 0-1 (test yscq=9984) BASIC METABOLIC [id number] 03:35:00 Test Item Value Reference Range Comments SODIUM (BEAKER) (test 138 meq/L 136-145 bqac=098) POTASSIUM (BEAKER) (test 4.8 meq/L 3.5-5.1 enpk=683) CHLORIDE (BEAKER) (test 100 meq/L 98-107 qezb=946) CO2 (BEAKER) (test 16 meq/L 22-29 plbo=974) BLOOD UREA NITROGEN 100 mg/dL 7-21 (BEAKER) (test jfff=651) CREATININE (BEAKER) (test 2.97 mg/dL 0.57-1.25 dmlu=872) GLUCOSE RANDOM (BEAKER) 105 mg/dL 70-105 (test optm=890) CALCIUM (BEAKER) (test 8.4 mg/dL 8.4-10.2 vyjt=616) EGFR (BEAKER) (test 22 mL/min/1.73 sq m ESTIMATED GFR IS NOT sdeh=7578) ACCURATE CREATININE CLEARANCE IN PREDICTING GLOMERULAR FILTRATION RATE. ESTIMATED GFR IS NOT APPLICABLE FOR DIALYSIS PATIENTS. [id number] 03:34:00 Test Item Value Reference Range Comments MAGNESIUM (BEAKER) (test qkwi=266) 2.5 mg/dL 1.6-2.6 HEPATIC FUNCTION [id number] 03:34:00 Test Item Value Reference Range Comments TOTAL PROTEIN (BEAKER) (test gnkr=648) 5.0 gm/dL 6.0-8.3 ALBUMIN (BEAKER) (test fftj=8256) 3.2 g/dL 3.5-5.0 BILIRUBIN TOTAL (BEAKER) (test suji=285) 2.4 mg/dL 0.2-1.2 BILIRUBIN DIRECT (BEAKER) (test ctnk=661) 1.6 mg/dL 0.1-0.5 ALKALINE PHOSPHATASE (BEAKER) (test edoe=789) 91 U/L 40-150 AST (SGOT) (BEAKER) (test rjli=183) 78 U/L 5-34 ALT (SGPT) (BEAKER) (test wuaw=125) 86 U/L 6-55 CALCIUM, [id number] 03:24:00 Test Item Value Reference Range Comments CALCIUM IONIZED (BEAKER) (test wzon=395) 1.04 mmol/L 1.12-1.27 PH, BLOOD (BEAKER) (test cmbr=8764) 7.29 BLOOD GAS, [id number] 03:24:00 Test Item Value Reference Range Comments PH ARTERIAL (BEAKER) (test kxvj=177) 7.30 7.35-7.45 PCO2 ARTERIAL (BEAKER) (test zdkr=409) 38 mmHg 35-45 PO2 ARTERIAL (BEAKER) (test vvdy=387) 170 mmHg 80-90 O2 SATURATION ARTERIAL (BEAKER) (test qtgl=866) 99.0 % 96.0-97.0 HCO3 ARTERIAL (BEAKER) (test iezd=963) 18 mmol/L 21-29 BASE EXCESS ARTERIAL (BEAKER) (test sxdr=550) -7.8 mmol/L -2.0-3.0 PATIENT TEMPERATURE (BEAKER) (test ccdb=3343) 36.5 C FIO2 (BEAKER) (test qadb=3706) 85.0 % BLOOD GAS, [id number] 21:12:00 Test Item Value Reference Range Comments PH ARTERIAL (BEAKER) (test jivr=447) 7.37 7.35-7.45 PCO2 ARTERIAL (BEAKER) (test ebud=248) 32 mmHg 35-45 PO2 ARTERIAL (BEAKER) (test kegn=043) 230 mmHg 80-90 O2 SATURATION ARTERIAL (BEAKER) (test iuhz=346) 99.5 % 96.0-97.0 HCO3 ARTERIAL (BEAKER) (test xiww=555) 18 mmol/L 21-29 BASE EXCESS ARTERIAL (BEAKER) (test iiex=623) -6.5 mmol/L -2.0-3.0 PATIENT TEMPERATURE (BEAKER) (test lhmf=5988) 37.0 C FIO2 (BEAKER) (test fwfv=7507) 85.0 % POCT-GLUCOSE [id number] 21:11:00 Test Item Value Reference Range Comments POC-GLUCOSE METER (BEAKER) 117 mg/dL 70-110 TESTED AT [address] (test moaz=7026) [facility] [address] LACTIC ACID, ARTERIAL, WHOLE [id number] 20:27:00 Test Item Value Reference Range Comments LACTATE BLOOD ARTERIAL (2) (BEAKER) (test 1.0 mmol/L 0.5-2.2 mbpy=7855) Effective 11/02/2015: Units/Reference Range ChangeNew: 0.5-2.2 mmol/L Previous: 5 -20 mg/dLBLOOD GAS, [id number] 20:09:00 Test Item Value Reference Range Comments PH ARTERIAL (BEAKER) (test ergb=915) 7.34 7.35-7.45 PCO2 ARTERIAL (BEAKER) (test zumf=850) 30 mmHg 35-45 PO2 ARTERIAL (BEAKER) (test hrma=609) 93 mmHg 80-90 O2 SATURATION ARTERIAL (BEAKER) (test wwqk=935) 96.8 % 96.0-97.0 HCO3 ARTERIAL (BEAKER) (test ntym=142) 16 mmol/L 21-29 BASE EXCESS ARTERIAL (BEAKER) (test snmm=873) -9.1 mmol/L -2.0-3.0 PATIENT TEMPERATURE (BEAKER) (test dbtx=0503) 37.0 C COMPREHENSIVE METABOLIC [id number] 18:59:00 Test Item Value Reference Range Comments TOTAL PROTEIN (BEAKER) 4.8 gm/dL 6.0-8.3 (test ontn=722) ALBUMIN (BEAKER) (test 3.1 g/dL 3.5-5.0 iwnl=3826) ALKALINE PHOSPHATASE 74 U/L 40-150 (BEAKER) (test noxz=871) BILIRUBIN TOTAL (BEAKER) 2.3 mg/dL 0.2-1.2 (test zlkt=055) SODIUM (BEAKER) (test 137 meq/L 136-145 juii=748) POTASSIUM (BEAKER) (test 4.5 meq/L 3.5-5.1 zbtq=417) CHLORIDE (BEAKER) (test 101 meq/L 98-107 wlqi=865) CO2 (BEAKER) (test 14 meq/L 22-29 iolp=494) BLOOD UREA NITROGEN 90 mg/dL 7-21 (BEAKER) (test sofi=710) CREATININE (BEAKER) (test 2.78 mg/dL 0.57-1.25 ioqc=880) GLUCOSE RANDOM (BEAKER) 98 mg/dL 70-105 (test zcve=898) CALCIUM (BEAKER) (test 8.3 mg/dL 8.4-10.2 fmrk=043) AST (SGOT) (BEAKER) (test 72 U/L 5-34 huvc=249) ALT (SGPT) (BEAKER) (test 88 U/L 6-55 zmvg=078) EGFR (BEAKER) (test 23 mL/min/1.73 sq m ESTIMATED GFR IS NOT povu=7733) ACCURATE CREATININE CLEARANCE IN PREDICTING GLOMERULAR FILTRATION RATE. ESTIMATED GFR IS NOT APPLICABLE FOR DIALYSIS PATIENTS. [id number] 18:35:00 Test Item Value Reference Range Comments MAGNESIUM (BEAKER) (test lsta=920) 2.3 mg/dL 1.6-2.6 BLOOD GAS, [id number] 18:00:00 Test Item Value Reference Range Comments PH ARTERIAL (BEAKER) (test spuj=077) 7.35 7.35-7.45 PCO2 ARTERIAL (BEAKER) (test dabo=377) 29 mmHg 35-45 PO2 ARTERIAL (BEAKER) (test tmqw=579) 63 mmHg 80-90 O2 SATURATION ARTERIAL (BEAKER) (test iibv=877) 91.4 % 96.0-97.0 HCO3 ARTERIAL (BEAKER) (test atwj=772) 16 mmol/L 21-29 BASE EXCESS ARTERIAL (BEAKER) (test fqdo=345) -9.1 mmol/L -2.0-3.0 PATIENT TEMPERATURE (BEAKER) (test ubet=6711) 37.0 C OXYGEN SATURATION, [id number] 18:00:00 Test Item Value Reference Range Comments O2 SATURATION (MEASURED) (BEAKER) (test czdd=3811) 89.9 % CALCIUM, [id number] 18:00:00 Test Item Value Reference Range Comments CALCIUM IONIZED (BEAKER) (test fjmn=955) 1.03 mmol/L 1.12-1.27 PH, BLOOD (BEAKER) (test jdpt=8238) 7.35 CBC W/PLT COUNT & AUTO [id number] 15:15:00 Test Item Value Reference Range Comments WHITE BLOOD CELL COUNT (BEAKER) (test oaiw=519) 9.6 K/ L 3.5-10.5 RED BLOOD CELL COUNT (BEAKER) (test hmpe=930) 2.60 M/ L 4.63-6.08 HEMOGLOBIN (BEAKER) (test zdke=366) 8.2 GM/DL 13.7-17.5 HEMATOCRIT (BEAKER) (test qsrf=720) 24.0 % 40.1-51.0 MEAN CORPUSCULAR VOLUME (BEAKER) (test ylxy=836) 92.3 fL 79.0-92.2 MEAN CORPUSCULAR HEMOGLOBIN (BEAKER) (test 31.5 pg 25.7-32.2 upza=499) MEAN CORPUSCULAR HEMOGLOBIN CONC (BEAKER) (test 34.2 GM/DL 32.3-36.5 qoev=633) RED CELL DISTRIBUTION WIDTH (BEAKER) (test 15.4 % 11.6-14.4 ehnt=571) PLATELET COUNT (BEAKER) (test vujj=157) 30 K/CU MM 150-450 MEAN PLATELET VOLUME (BEAKER) (test iuwi=566) 12.2 fL 9.4-12.4 NUCLEATED RED BLOOD CELLS (BEAKER) (test 0 /100 WBC 0-0 zrvv=283) NEUTROPHILS RELATIVE PERCENT (BEAKER) (test 95 % wfsg=189) LYMPHOCYTES RELATIVE PERCENT (BEAKER) (test 1 % pvhu=893) MONOCYTES RELATIVE PERCENT (BEAKER) (test 3 % jcdk=976) EOSINOPHILS RELATIVE PERCENT (BEAKER) (test 0 % fyxh=899) BASOPHILS RELATIVE PERCENT (BEAKER) (test 0 % misp=939) NEUTROPHILS ABSOLUTE COUNT (BEAKER) (test 9.14 K/ L 1.78-5.38 qvlr=299) LYMPHOCYTES ABSOLUTE COUNT (BEAKER) (test 0.10 K/ L 1.32-3.57 isvj=864) MONOCYTES ABSOLUTE COUNT (BEAKER) (test jbvb=459) 0.26 K/ L 0.30-0.82 EOSINOPHILS ABSOLUTE COUNT (BEAKER) (test 0.00 K/ L 0.04-0.54 uxnd=230) BASOPHILS ABSOLUTE COUNT (BEAKER) (test ribq=526) 0.02 K/ L 0.01-0.08 IMMATURE GRANULOCYTES-RELATIVE PERCENT (BEAKER) 1 % 0-1 (test faav=3237) POCT-GLUCOSE [id number] 12:54:00 Test Item Value Reference Range Comments POC-GLUCOSE METER (BEAKER) 111 mg/dL 70-110 TESTED AT [facility] [address] (test toqi=9324) [facility] [address] SPUTUM CULTURE + GRAM [id number] 10:56:00 Test Item Value Reference Range Comments CULTURE (BEAKER) (test 3+ Normal respiratory tre twmp=6440) present GRAM STAIN RESULT (BEAKER) 3+ White blood cells seen (test rltk=4485) GRAM STAIN RESULT (BEAKER) 0-5 epithelial cells (test olxt=91289) GRAM STAIN RESULT (BEAKER) <1+ gram negative rods (test feah=75564) GRAM STAIN RESULT (BEAKER) <1+ gram positive rods (test xqaz=231600) GRAM STAIN RESULT (BEAKER) <1+ gram positive cocci in (test unap=830610) clusters TACROLIMUS [id number] 10:34:00 Test Item Value Reference Range Comments TACROLIMUS BLOOD (BEAKER) (test qumh=482) 9.2 ng/mL 10.0-20.0 BLOOD GAS, [id number] 08:45:00 Test Item Value Reference Range Comments PH ARTERIAL (BEAKER) (test zdnq=822) 7.42 7.35-7.45 PCO2 ARTERIAL (BEAKER) (test fzqv=956) 24 mmHg 35-45 PO2 ARTERIAL (BEAKER) (test dwrw=956) 85 mmHg 80-90 O2 SATURATION ARTERIAL (BEAKER) (test cknp=091) 96.9 % 96.0-97.0 HCO3 ARTERIAL (BEAKER) (test ykuc=003) 16 mmol/L 21-29 BASE EXCESS ARTERIAL (BEAKER) (test wmmq=543) -7.8 mmol/L -2.0-3.0 PATIENT TEMPERATURE (BEAKER) (test kyhx=0792) 36.8 C FIO2 (BEAKER) (test ihiw=9732) 40.0 % CALCIUM, [id number] 07:52:00 Test Item Value Reference Range Comments CALCIUM IONIZED (BEAKER) (test trqp=738) 1.01 mmol/L 1.12-1.27 PH, BLOOD (BEAKER) (test uctk=4317) 7.41 Check serum Ionized Calcium level after 4 hours after IV Calcium replacement.BASIC METABOLIC [id number] 06:54:00 Test Item Value Reference Range Comments SODIUM (BEAKER) (test 141 meq/L 136-145 gciz=367) POTASSIUM (BEAKER) (test 4.3 meq/L 3.5-5.1 bipx=360) CHLORIDE (BEAKER) (test 105 meq/L 98-107 zdth=759) CO2 (BEAKER) (test 15 meq/L 22-29 bwaa=379) BLOOD UREA NITROGEN 77 mg/dL 7-21 (BEAKER) (test rxkx=319) CREATININE (BEAKER) (test 2.66 mg/dL 0.57-1.25 pqkm=837) GLUCOSE RANDOM (BEAKER) 75 mg/dL 70-105 (test psth=019) CALCIUM (BEAKER) (test 8.3 mg/dL 8.4-10.2 teff=473) EGFR (BEAKER) (test 25 mL/min/1.73 sq m ESTIMATED GFR IS NOT znbs=3607) ACCURATE CREATININE CLEARANCE IN PREDICTING GLOMERULAR FILTRATION RATE. ESTIMATED GFR IS NOT APPLICABLE FOR DIALYSIS PATIENTS. HEPATIC FUNCTION [id number] 06:14:00 Test Item Value Reference Range Comments TOTAL PROTEIN (BEAKER) (test mlbh=028) 4.8 gm/dL 6.0-8.3 ALBUMIN (BEAKER) (test hyxb=2931) 3.2 g/dL 3.5-5.0 BILIRUBIN TOTAL (BEAKER) (test jgsn=559) 2.3 mg/dL 0.2-1.2 BILIRUBIN DIRECT (BEAKER) (test uckn=917) 1.5 mg/dL 0.1-0.5 ALKALINE PHOSPHATASE (BEAKER) (test ubuy=762) 63 U/L 40-150 AST (SGOT) (BEAKER) (test riqr=799) 72 U/L 5-34 ALT (SGPT) (BEAKER) (test iwup=161) 96 U/L 6-55 VANCOMYCIN LEVEL, [id number] 06:12:00 Test Item Value Reference Range Comments VANCOMYCIN TROUGH (BEAKER) (test pfmw=017) 17.7 ug/mL 10.0-20.0 HEPATITIS PANEL, [id number] 01:10:00 Test Item Value Reference Range Comments HEPATITIS A IGM ANTIBODY (BEAKER) (test Nonreactive Nonreactive eqyg=379) HEPATITIS B CORE IGM ANTIBODY (BEAKER) (test Nonreactive Nonreactive yltb=866) HEPATITIS C ANTIBODY (BEAKER) (test msjc=717) Nonreactive Nonreactive HEPATITIS B SURFACE ANTIGEN (2) (BEAKER) (test Nonreactive Nonreactive qnoe=1393) BLOOD GAS, [id number] 23:35:00 Test Item Value Reference Range Comments PH ARTERIAL (BEAKER) (test sdwr=985) 7.44 7.35-7.45 PCO2 ARTERIAL (BEAKER) (test cfgm=041) 27 mmHg 35-45 PO2 ARTERIAL (BEAKER) (test tnex=623) 101 mmHg 80-90 O2 SATURATION ARTERIAL (BEAKER) (test bajn=222) 97.9 % 96.0-97.0 HCO3 ARTERIAL (BEAKER) (test rdfx=446) 18 mmol/L 21-29 BASE EXCESS ARTERIAL (BEAKER) (test biaq=354) -4.9 mmol/L -2.0-3.0 PATIENT TEMPERATURE (BEAKER) (test pzmq=5379) 37.0 C FIO2 (BEAKER) (test qktr=2771) 40.0 % 30 minutes after sodium bicarbonate administration.CALCIUM, [id number] 20 :10:00 Test Item Value Reference Range Comments CALCIUM IONIZED (BEAKER) (test jmnt=743) 1.02 mmol/L 1.12-1.27 PH, BLOOD (BEAKER) (test pybx=9418) 7.38 BLOOD GAS, [id number] 20:09:00 Test Item Value Reference Range Comments PH ARTERIAL (BEAKER) (test mfpw=912) 7.38 7.35-7.45 PCO2 ARTERIAL (BEAKER) (test eyrs=326) 28 mmHg 35-45 PO2 ARTERIAL (BEAKER) (test gmsw=678) 168 mmHg 80-90 O2 SATURATION ARTERIAL (BEAKER) (test cbiw=732) 99.1 % 96.0-97.0 HCO3 ARTERIAL (BEAKER) (test hfvn=582) 16 mmol/L 21-29 BASE EXCESS ARTERIAL (BEAKER) (test tgka=158) -8.0 mmol/L -2.0-3.0 PATIENT TEMPERATURE (BEAKER) (test zdfz=7763) 37.0 C FIO2 (BEAKER) (test pfjy=9055) 40.0 % [id number] 17:27:00 Test Item Value Reference Range Comments HAPTOGLOBIN (BEAKER) (test iwpk=916) 86 mg/dL 14-258 CREATININE, RANDOM [id number] 16:05:00 Test Item Value Reference Range Comments CREATININE URINE (BEAKER) (test esec=016) 53.1 mg/dL Reference Range: No NormalsPOTASSIUM, RANDOM [id number] 16:05:00 Test Item Value Reference Range Comments POTASSIUM URINE (BEAKER) (test bnvi=595) 48.4 meq/L Reference Range: No NormalsPROTEIN, RANDOM [id number] 16:05:00 Test Item Value Reference Range Comments PROTEIN, URINE (BEAKER) (test hmho=0000) 9 mg/dL 0-14 SODIUM, RANDOM [id number] 16:05:00 Test Item Value Reference Range Comments SODIUM URINE (BEAKER) (test tqes=661) 64 meq/L Reference Range: No NormalsURINALYSIS W/ [id number] 16:02:00 Test Item Value Reference Range Comments COLOR (BEAKER) (test qqdc=349) Yellow CLARITY (BEAKER) (test gxcs=051) Clear SPECIFIC GRAVITY UA (BEAKER) (test yiof=295) 1.011 1.001-1.035 PH UA (BEAKER) (test jwie=352) 5.0 5.0-8.0 PROTEIN UA (BEAKER) (test agyj=381) Negative Negative GLUCOSE UA (BEAKER) (test tsdc=485) Negative Negative KETONES UA (BEAKER) (test qeyp=807) Trace Negative BILIRUBIN UA (BEAKER) (test dqty=264) Negative Negative BLOOD UA (BEAKER) (test thbj=782) Negative Negative NITRITE UA (BEAKER) (test utkp=464) Negative Negative LEUKOCYTE ESTERASE UA (BEAKER) (test avpc=776) Negative Negative UROBILINOGEN UA (BEAKER) (test hwrm=066) 0.2 mg/dL 0.2-1.0 RBC UA (BEAKER) (test ujce=421) 0 /HPF WBC UA (BEAKER) (test cgcg=082) < /HPF MUCUS (BEAKER) (test nmbf=5562) Rare SOURCE(BEAKER) (test oyim=3160) Urine, Voided CREATINE KINASE (CK)2017-12-28 15:27:00 Test Item Value Reference Range Comments CREATINE KINASE TOTAL (BEAKER) (test thwh=923) 133 U/L 29-200 [id number] 15:26:00 Test Item Value Reference Range Comments POTASSIUM (BEAKER) (test begy=577) 4.6 meq/L 3.5-5.1 [id number] 15:26:00 Test Item Value Reference Range Comments MAGNESIUM (BEAKER) (test mnre=750) 2.2 mg/dL 1.6-2.6 [id number] 15:26:00 Test Item Value Reference Range Comments PHOSPHORUS (BEAKER) (test ahbp=610) 4.1 mg/dL 2.3-4.7 CALCIUM, [id number] 14:59:00 Test Item Value Reference Range Comments CALCIUM IONIZED (BEAKER) (test ucgy=457) 0.98 mmol/L 1.12-1.27 PH, BLOOD (BEAKER) (test wvpe=8974) 7.42 [id number] 12:31:00 Test Item Value Reference Range Comments PROCALCITONIN (BEAKER) (test koez=1342) > ng/mL <0.05 SEPSIS RISK (ng/mL)Low: 0.05-0.50Intermediate: 0.51-2.00High: & gt;=2.01IMMUNOGLOBULIN G (IGG)2017-12-28 12:15:00 Test Item Value Reference Range Comments IMMUNOGLOBULIN G (IGG) (BEAKER) (test qtke=456) < mg/dL 540-1822 CBC W/PLT COUNT & AUTO [id number] 11:41:00 Test Item Value Reference Range Comments WHITE BLOOD CELL COUNT (BEAKER) (test uuzj=308) 10.6 K/ L 3.5-10.5 RED BLOOD CELL COUNT (BEAKER) (test gxyk=157) 2.78 M/ L 4.63-6.08 HEMOGLOBIN (BEAKER) (test puyh=485) 8.4 GM/DL 13.7-17.5 HEMATOCRIT (BEAKER) (test umgo=682) 25.5 % 40.1-51.0 MEAN CORPUSCULAR VOLUME (BEAKER) (test fznn=965) 91.7 fL 79.0-92.2 MEAN CORPUSCULAR HEMOGLOBIN (BEAKER) (test 30.2 pg 25.7-32.2 ntze=878) MEAN CORPUSCULAR HEMOGLOBIN CONC (BEAKER) (test 32.9 GM/DL 32.3-36.5 qhap=546) RED CELL DISTRIBUTION WIDTH (BEAKER) (test 15.3 % 11.6-14.4 jvho=837) PLATELET COUNT (BEAKER) (test dzic=249) 35 K/CU MM 150-450 MEAN PLATELET VOLUME (BEAKER) (test rjqz=825) 12.3 fL 9.4-12.4 NUCLEATED RED BLOOD CELLS (BEAKER) (test 0 /100 WBC 0-0 sfoe=072) (CELLAVISION MANUAL DIFF)2017-12-28 11:41:00 Test Item Value Reference Range Comments NEUTROPHILS - REL (CELLAVISION)(BEAKER) (test 71 % aleq=8289) MONOCYTES - REL (CELLAVISION)(BEAKER) (test 4 % bgse=1282) METAMYELOCYTES - REL (CELLAVISION)(BEAKER) (test 2 % 0-0 ouug=3017) BANDS - REL (CELLAVISION)(BEAKER) (test 22 % 0-10 lauw=3069) NEUTROPHILS - ABS (CELLAVISION)(BEAKER) (test 7.53 K/ul 1.78-5.38 ynig=8088) MONOCYTES - ABS (CELLAVISION)(BEAKER) (test 0.42 K/uL 0.30-0.82 hwkf=5565) METAMYELOCYTES - ABS (CELLAVISION)(BEAKER) (test 0.21 K/uL 0.00-0.00 jfow=0190) BANDS - ABS (CELLAVISION)(BEAKER) (test 2.33 K/uL 0.00-0.80 smte=8648) TOTAL COUNTED (BEAKER) (test axhq=0019) 100 WBC MORPHOLOGY (BEAKER) (test xxfs=999) Normal PLT MORPHOLOGY (BEAKER) (test wijv=882) Normal HYPOCHROMIA (BEAKER) (test cnti=276) 1+ few ANISOCYTOSIS (BEAKER) (test mnra=039) 2+ moderate MICROCYTES (BEAKER) (test dlmk=495) 1+ few MACROCYTES (BEAKER) (test ynil=853) 2+ moderate POIKILOCYTES (BEAKER) (test dvbz=991) 2+ moderate OVALOCYTES (BEAKER) (test isye=595) 1+ few TEAR DROP CELLS (BEAKER) (test wssy=435) 1+ few ACANTHOCYTES (BEAKER) (test cqou=585) 1+ few MICKEY CELLS (BEAKER) (test fkgr=625) 2+ moderate ARTIFACT (CELLAVISION)(BEAKER) (test aqac=4511) Present PLATELET CONCENTRATION (CELLAVISION)(BEAKER) Decreased (test gjrz=7389) Received comment: User comments: Slide comments:RAD, CHEST, 1 VIEW, NON [id number] -[id number] 10:56:00Reason for exam:->dyspneaShould this be performed at the bedside?->YesFINAL REPORT Chest, one view. HISTORY: Dyspnea COMPARISON: 12/27/2017 IMPRESSION: No significant change. Right-sided PICC unchanged in position. Unchanged patchy bilateral airspace disease. Trace bilateral pleural effusions, right greater than left. Cardiomediastinal silhouette is persistently enlarged. Median sternotomy wires and post surgical changes in the mediastinum. Signed: Torey Sam MDReport Verified Date/Time: 12/28/2017 10:56:56 Reading Location: [address] Consult Reading Room HEPATIC FUNCTION [id number] 10:02:00 Test Item Value Reference Range Comments TOTAL PROTEIN (BEAKER) (test utoz=675) 4.7 gm/dL 6.0-8.3 ALBUMIN (BEAKER) (test hyly=6784) 3.3 g/dL 3.5-5.0 BILIRUBIN TOTAL (BEAKER) (test fllj=368) 1.8 mg/dL 0.2-1.2 BILIRUBIN DIRECT (BEAKER) (test zaml=688) 1.3 mg/dL 0.1-0.5 ALKALINE PHOSPHATASE (BEAKER) (test odlm=423) 68 U/L 40-150 AST (SGOT) (BEAKER) (test hvdm=610) 90 U/L 5-34 ALT (SGPT) (BEAKER) (test alay=142) 107 U/L 6-55 LACTATE DEHYDROGENASE (LDH)2017-12-28 10:01:00 Test Item Value Reference Range Comments LACTATE DEHYDROGENASE (BEAKER) (test fetq=498) 235 U/L 125-220 HEPATIC FUNCTION [id number] 09:38:00 Test Item Value Reference Range Comments TOTAL PROTEIN (BEAKER) (test bmjh=835) 4.5 gm/dL 6.0-8.3 ALBUMIN (BEAKER) (test pvov=8886) 3.1 g/dL 3.5-5.0 BILIRUBIN TOTAL (BEAKER) (test bmas=923) 1.4 mg/dL 0.2-1.2 BILIRUBIN DIRECT (BEAKER) (test vbmd=132) 1.0 mg/dL 0.1-0.5 ALKALINE PHOSPHATASE (BEAKER) (test vkhs=472) 63 U/L 40-150 AST (SGOT) (BEAKER) (test unah=483) 97 U/L 5-34 ALT (SGPT) (BEAKER) (test dspv=115) 109 U/L 6-55 TACROLIMUS [id number] 08:50:00 Test Item Value Reference Range Comments TACROLIMUS BLOOD (BEAKER) (test xyzf=526) 11.2 ng/mL 10.0-20.0 [id number] 08:44:00 Test Item Value Reference Range Comments CORTISOL, TOTAL (BEAKER) (test hgye=0345) 16.7 ug/dL 3.7-19.4 BASIC METABOLIC [id number] 07:08:00 Test Item Value Reference Range Comments SODIUM (BEAKER) (test 138 meq/L 136-145 flej=388) POTASSIUM (BEAKER) (test 4.9 meq/L 3.5-5.1 jzkw=392) CHLORIDE (BEAKER) (test 107 meq/L 98-107 vjwa=697) CO2 (BEAKER) (test 15 meq/L 22-29 ycvj=975) BLOOD UREA NITROGEN 56 mg/dL 7-21 (BEAKER) (test uycp=236) CREATININE (BEAKER) (test 2.66 mg/dL 0.57-1.25 tezt=193) GLUCOSE RANDOM (BEAKER) 113 mg/dL 70-105 (test drft=015) CALCIUM (BEAKER) (test 7.5 mg/dL 8.4-10.2 chma=756) EGFR (BEAKER) (test 25 mL/min/1.73 sq m ESTIMATED GFR IS NOT vvdy=1579) ACCURATE CREATININE CLEARANCE IN PREDICTING GLOMERULAR FILTRATION RATE. ESTIMATED GFR IS NOT APPLICABLE FOR DIALYSIS PATIENTS. VANCOMYCIN LEVEL, [id number] 06:47:00 Test Item Value Reference Range Comments VANCOMYCIN RANDOM (BEAKER) (test uolm=916) 13.8 ug/mL Reference Range: No [id number] 06:23:00 Test Item Value Reference Range Comments MAGNESIUM (BEAKER) (test crzf=656) 1.7 mg/dL 1.6-2.6 BLOOD GAS, [id number] 06:07:00 Test Item Value Reference Range Comments PH ARTERIAL (BEAKER) (test xfjr=889) 7.39 7.35-7.45 PCO2 ARTERIAL (BEAKER) (test eiqv=132) 30 mmHg 35-45 PO2 ARTERIAL (BEAKER) (test ztxy=743) 109 mmHg 80-90 O2 SATURATION ARTERIAL (BEAKER) (test zsjs=674) 98.1 % 96.0-97.0 HCO3 ARTERIAL (BEAKER) (test zesx=176) 18 mmol/L 21-29 BASE EXCESS ARTERIAL (BEAKER) (test kwrf=109) -6.3 mmol/L -2.0-3.0 PATIENT TEMPERATURE (BEAKER) (test zkzb=0201) 36.5 C FIO2 (BEAKER) (test aqso=2209) 100.0 % LACTIC ACID, ARTERIAL, WHOLE [id number] 05:20:00 Test Item Value Reference Range Comments LACTATE BLOOD ARTERIAL (2) (BEAKER) (test 3.1 mmol/L 0.5-2.2 ixir=9677) Effective 11/02/2015: Units/Reference Range ChangeNew: 0.5-2.2 mmol/L Previous: 5 -20 mg/dLLACTIC ACID, VENOUS, WHOLE [id number] 23:10:00 Test Item Value Reference Range Comments LACTATE BLOOD VENOUS (2) (BEAKER) (test 4.1 mmol/L 0.5-2.2 vful=8289) Effective 11/02/2015: Units/Reference Range ChangeNew: 0.5-2.2 mmol/L Previous: 5 -20 mg/[id number] 23:09:00 Test Item Value Reference Range Comments POTASSIUM (BEAKER) (test xbiq=472) 5.0 meq/L 3.5-5.1 BLOOD GAS, [id number] 22:54:00 Test Item Value Reference Range Comments PH VENOUS (BEAKER) (test cblu=140) 7.34 7.32-7.42 PCO2 VENOUS (BEAKER) (test lvsq=361) 32 mmHg 41-51 PO2 VENOUS (BEAKER) (test dsmo=106) 36 mmHg 25-40 O2 SATURATION VENOUS (BEAKER) (test harj=720) 66.4 % 40.0-70.0 HCO3 VENOUS (BEAKER) (test begr=853) 17 mmol/L 21-29 BASE EXCESS VENOUS (BEAKER) (test ynsm=979) -8.0 mmol/L -2.0-3.0 PATIENT TEMPERATURE (BEAKER) (test lafo=2293) 37.0 C U/S, ABDOMINAL, [id number] 22:00:00Abdomen limited area? Add comment if clarification is needed.->Right upper quadrantReason for exam:->Ascites, hepatosplenomegalyShould this be performed at the bedside?->YesFINAL REPORT Comparison exam: Abdominal ultrasound 03/09/2015 The liver is normal in size, morphology, and echotexture. Gallstones. Gallbladder wall thickening. Questionable sonographic Baltazar's sign. No intrahepatic biliary ductal dilatation. Normal IVC and hepatic veins. Incomplete visualization of the pancreas.Normal aorta.Normal right kidney. Small volume ascites. Bilateralpleural effusions. The measurements are as follows: Liver : 16.9 cmGallbladder wall : 5 mmCommon bile duct: 6 mmPortal vein diameter : 9 mmRight kidney : 9.1 x 3.8 x 3.9 cm Impression: 1. Cholelithiasis with gallbladder wall thickening and questionable sonographic Baltazar's sign. Further evaluation with a nuclear medicine hepatobiliary scan may be of value to exclude the possibility of acute cholecystitis. 2. Small volume ascites. Signed : Mio Emeport Verified Date/Time: 12/27/2017 22:00:32 Reading Location: [address] Consult Reading Room RAD, CHEST, 1 VIEW, NON [id number] 19:03:00Reason for exam:->eval pulmonary congestion/dyspneaShould this be performed at the bedside?->YesFINAL REPORT RAD, CHEST , 1 VIEW, NON DEPT INDICATION: eval pulmonary congestion/dyspnea COMPARISON: Three hours prior FINDINGS: Portable frontal view of the chest. IMPRESSION: Support Lines: Stable right PICC. Lungs and pleura: No significant interval change in previously noted interstitial congestion. Bilateral pleural effusions again noted, greater on the right. No pneumothorax.Heart and mediastinum: Stable contours. Stable surgical changes.Additional findings: None. Signed: JR Rizzo Robert MDReport Verified Date/Time: 12/27/2017 19:03:45 Reading Location: [address] Reading Room BLOOD GAS, [id number] 18:29:00 Test Item Value Reference Range Comments PH ARTERIAL (BEAKER) (test yywq=515) 7.41 7.35-7.45 PCO2 ARTERIAL (BEAKER) (test ubxu=193) 24 mmHg 35-45 PO2 ARTERIAL (BEAKER) (test mbhd=245) 69 mmHg 80-90 O2 SATURATION ARTERIAL (BEAKER) (test ebec=527) 94.8 % 96.0-97.0 HCO3 ARTERIAL (BEAKER) (test wdfs=213) 15 mmol/L 21-29 BASE EXCESS ARTERIAL (BEAKER) (test uktk=832) -8.2 mmol/L -2.0-3.0 PATIENT TEMPERATURE (BEAKER) (test pvaz=9776) 36.4 C FIO2 (BEAKER) (test rkfi=6880) 21.0 % RAD, CHEST, 1 VIEW, NON [id number] 15:36:00Reason for exam:->RUE picc line placement Should this be performed at the bedside?->YesFINAL REPORT CLINICAL HISTORY:RUE picc line placement TECHNIQUE: 1 view of the chest. COMPARISON: 12/26/2017 IMPRESSION: The tip of the right PICC line is in the right atrium approximately 6 cm below the cavoatrial junction. There are increased right asymmetric airspace opacities. A small right effusion is again seen. The cardiomediastinal silhouette is magnified by technique with sternotomy wires.. Signed: Jad Bernabe MDReport Verified Date/Time: 2017 15:36:05 Reading Location: [address] Consult Reading Room BASI METABOLIC [id number] 14:47:00 Test Item Value Reference Range Comments SODIUM (BEAKER) (test 138 meq/L 136-145 menf=582) POTASSIUM (BEAKER) (test 5.2 meq/L 3.5-5.1 xvin=681) CHLORIDE (BEAKER) (test 111 meq/L 98-107 tfoh=245) CO2 (BEAKER) (test 15 meq/L 22-29 eqxk=657) BLOOD UREA NITROGEN 45 mg/dL 7-21 (BEAKER) (test yhdt=328) CREATININE (BEAKER) (test 2.34 mg/dL 0.57-1.25 xvge=455) GLUCOSE RANDOM (BEAKER) 88 mg/dL 70-105 (test pzmk=104) CALCIUM (BEAKER) (test 7.9 mg/dL 8.4-10.2 lnms=059) EGFR (BEAKER) (test 29 mL/min/1.73 sq m ESTIMATED GFR IS NOT fnuj=4310) ACCURATE CREATININE CLEARANCE IN PREDICTING GLOMERULAR FILTRATION RATE. ESTIMATED GFR IS NOT APPLICABLE FOR DIALYSIS PATIENTS. LACTIC ACID, ARTERIAL, WHOLE [id number] 14:33:00 Test Item Value Reference Range Comments LACTATE BLOOD ARTERIAL (2) (BEAKER) (test 4.2 mmol/L 0.5-2.2 ejkq=7113) Effective 11/02/2015: Units/Reference Range ChangeNew: 0.5-2.2 mmol/L Previous: 5 -20 mg/dLBLOOD GAS, [id number] 14:11:00 Test Item Value Reference Range Comments PH ARTERIAL (BEAKER) (test zrmr=398) 7.38 7.35-7.45 PCO2 ARTERIAL (BEAKER) (test yeer=763) 26 mmHg 35-45 PO2 ARTERIAL (BEAKER) (test jtdj=780) 174 mmHg 80-90 O2 SATURATION ARTERIAL (BEAKER) (test qrvu=929) 99.2 % 96.0-97.0 HCO3 ARTERIAL (BEAKER) (test cxte=727) 15 mmol/L 21-29 BASE EXCESS ARTERIAL (BEAKER) (test hgvi=605) -8.7 mmol/L -2.0-3.0 PATIENT TEMPERATURE (BEAKER) (test agpn=1646) 36.5 C FIO2 (BEAKER) (test mjow=7368) 21.0 % PROTHROMBIN [id number] 11:17:00 Test Item Value Reference Range Comments PROTIME (BEAKER) (test yndl=033) 23.8 seconds 11.7-14.7 INR (BEAKER) (test kvua=103) 2.1 <=5.9 RECOMMENDED COUMADIN/WARFARIN INR THERAPY RANGESSTANDARD DOSE: 2.0 - 3.0 Includes: PROPHYLAXIS forvenous thrombosis, systemic embolization; TREATMENT for venous thrombosis and/or pulmonary embolus.HIGH RISK: Target INR is 2.5-3.5 for patients with mechanical heart valves.[id number] 11:17:00 Test Item Value Reference Range Comments FIBRINOGEN LEVEL (BEAKER) (test xxnu=902) 337 mg/dl 225-434 CBC W/PLT COUNT & AUTO [id number] 11:13:00 Test Item Value Reference Range Comments WHITE BLOOD CELL COUNT (BEAKER) (test ksza=138) 9.2 K/ L 3.5-10.5 RED BLOOD CELL COUNT (BEAKER) (test hnen=024) 2.92 M/ L 4.63-6.08 HEMOGLOBIN (BEAKER) (test pvib=329) 8.9 GM/DL 13.7-17.5 HEMATOCRIT (BEAKER) (test ajkz=149) 28.0 % 40.1-51.0 MEAN CORPUSCULAR VOLUME (BEAKER) (test qvzc=864) 95.9 fL 79.0-92.2 MEAN CORPUSCULAR HEMOGLOBIN (BEAKER) (test 30.5 pg 25.7-32.2 pfet=003) MEAN CORPUSCULAR HEMOGLOBIN CONC (BEAKER) (test 31.8 GM/DL 32.3-36.5 igfm=816) RED CELL DISTRIBUTION WIDTH (BEAKER) (test 15.0 % 11.6-14.4 oqzv=600) PLATELET COUNT (BEAKER) (test pkos=500) 46 K/CU MM 150-450 MEAN PLATELET VOLUME (BEAKER) (test afup=850) 12.1 fL 9.4-12.4 NUCLEATED RED BLOOD CELLS (BEAKER) (test 0 /100 WBC 0-0 zflv=556) (CELLAVISION MANUAL DIFF)2017-12-27 11:13:00 Test Item Value Reference Range Comments NEUTROPHILS - REL (CELLAVISION)(BEAKER) (test 70 % qpfs=6536) LYMPHOCYTES - REL (CELLAVISION)(BEAKER) (test 4 % pyfa=9422) MONOCYTES - REL (CELLAVISION)(BEAKER) (test 2 % vzpk=7337) MYELOCYTES - REL (CELLAVISION)(BEAKER) (test 3 % 0-0 irel=3852) BANDS - REL (CELLAVISION)(BEAKER) (test 21 % 0-10 uwgr=2300) NEUTROPHILS - ABS (CELLAVISION)(BEAKER) (test 6.44 K/ul 1.78-5.38 gqlb=6100) LYMPHOCYTES - ABS (CELLAVISION)(BEAKER) (test 0.37 K/ul 1.32-3.57 fvts=8157) MONOCYTES - ABS (CELLAVISION)(BEAKER) (test 0.18 K/uL 0.30-0.82 albi=8197) MYELOCYTES-ABS (CELLAVISION)(BEAKER) (test 0.28 K/uL 0.00-0.00 yxve=8606) BANDS - ABS (CELLAVISION)(BEAKER) (test 1.93 K/uL 0.00-0.80 mtrm=4520) TOTAL COUNTED (BEAKER) (test fkmc=7151) 100 WBC MORPHOLOGY (BEAKER) (test bcho=626) Normal PLT MORPHOLOGY (BEAKER) (test mymm=132) Normal ANISOCYTOSIS (BEAKER) (test gzbe=747) 2+ moderate MICROCYTES (BEAKER) (test jsor=750) 2+ moderate POIKILOCYTES (BEAKER) (test lpzo=644) 3+ many OVALOCYTES (BEAKER) (test kkuw=785) 1+ few MICKEY CELLS (BEAKER) (test nyqv=462) 1+ few ARTIFACT (CELLAVISION)(BEAKER) (test xlrv=4408) Present PLATELET CONCENTRATION (CELLAVISION)(BEAKER) Decreased (test duxj=6365) Received comment: User comments: Slide comments:RESPIRATORY PANEL [id number] 10:38:00 Test Item Value Reference Range Comments HUMAN METAPNEUMOVIRUS (BEAKER) (test Not detected Not detected, Inconclusive zmas=9741) RHINOVIRUS (BEAKER) (test agxm=2103) Not detected Not detected, Inconclusive INFLUENZA A (BEAKER) (test Not detected Not detected, Inconclusive ozwm=8438) INFLUENZA A SUBTYPE H1 (BEAKER) Not detected Not detected, Inconclusive (test esps=3161) INFLUENZA A SUBTYPE H3 (BEAKER) Not detected Not detected, Inconclusive (test wpxp=5187) INFLUENZA A SUBTYPE H1-2009 (BEAKER) Not detected Not detected, Inconclusive (test dzzn=2325) INFLUENZA B (BEAKER) (test Not detected Not detected, Inconclusive ylfj=4986) RESPIRATORY SYNCYTIAL VIRUS (BEAKER) Not detected Not detected, Inconclusive (test nros=6062) PARAINFLUENZA VIRUS 1 (BEAKER) (test Not detected Not detected, Inconclusive icyh=3611) PARAINFLUENZA VIRUS 2 (BEAKER) (test Not detected Not detected, Inconclusive kjyw=8959) PARAINFLUENZA VIRUS 3 (BEAKER) (test Not detected Not detected, Inconclusive wyhw=9903) PARAINFLUENZA VIRUS 4 (BEAKER) (test Not detected Not detected, Inconclusive qyle=9597) ADENOVIRUS (BEAKER) (test fucs=2059) Not detected Not detected, Inconclusive CORONAVIRUS 229E (BEAKER) (test Not detected Not detected, Inconclusive wuwx=1683) CORONAVIRUS HKU1 (BEAKER) (test Not detected Not detected, Inconclusive qzdp=0995) CORONAVIRUS NL63 (BEAKER) (test Not detected Not detected, Inconclusive nvlv=7627) CORONAVIRUS OC43 (BEAKER) (test Not detected Not detected, Inconclusive klmt=5523) BORDETELLA PERTUSSIS (BEAKER) (test Not detected Not detected, Inconclusive cnea=8277) CHLAMYDOPHILA PNEUMONIAE (BEAKER) Not detected Not detected, Inconclusive (test ygeu=7773) MYCOPLASMA PNEUMONIAE (BEAKER) (test Not detected Not detected, Inconclusive ukjq=2923) TACROLIMUS [id number] 08:44:00 Test Item Value Reference Range Comments TACROLIMUS BLOOD (BEAKER) (test sdag=962) 12.2 ng/mL 10.0-20.0 [id number] 08:35:00 Test Item Value Reference Range Comments MAGNESIUM (BEAKER) (test vyun=310) 1.7 mg/dL 1.6-2.6 CALCIUM, [id number] 06:59:00 Test Item Value Reference Range Comments CALCIUM IONIZED (BEAKER) (test dbuz=220) 1.05 mmol/L 1.12-1.27 PH, BLOOD (BEAKER) (test cfxt=6664) 7.35 Check serum Ionized Calcium level after 4 hours after IV Calcium replacement.BASIC METABOLIC [id number] 06:02:00 Test Item Value Reference Range Comments SODIUM (BEAKER) (test 141 meq/L 136-145 bjkb=490) POTASSIUM (BEAKER) (test 4.5 meq/L 3.5-5.1 gsex=982) CHLORIDE (BEAKER) (test 112 meq/L 98-107 nmyn=964) CO2 (BEAKER) (test 15 meq/L 22-29 bhdd=179) BLOOD UREA NITROGEN 38 mg/dL 7-21 (BEAKER) (test vuii=153) CREATININE (BEAKER) (test 1.96 mg/dL 0.57-1.25 jajl=937) GLUCOSE RANDOM (BEAKER) 117 mg/dL 70-105 (test glcr=209) CALCIUM (BEAKER) (test 7.9 mg/dL 8.4-10.2 gdef=902) EGFR (BEAKER) (test 35 mL/min/1.73 sq m ESTIMATED GFR IS NOT bupq=9439) ACCURATE CREATININE CLEARANCE IN PREDICTING GLOMERULAR FILTRATION RATE. ESTIMATED GFR IS NOT APPLICABLE FOR DIALYSIS PATIENTS. LACTIC ACID, VENOUS, WHOLE [id number] 05:50:00 Test Item Value Reference Range Comments LACTATE BLOOD VENOUS (2) (BEAKER) (test 5.9 mmol/L 0.5-2.2 anqf=7703) Effective 11/02/2015: Units/Reference Range ChangeNew: 0.5-2.2 mmol/L Previous: 5 -20 mg/dLBLOOD GAS, [id number] 05:29:00 Test Item Value Reference Range Comments PH VENOUS (BEAKER) (test eptf=570) 7.34 7.32-7.42 PCO2 VENOUS (BEAKER) (test tubt=671) 33 mmHg 41-51 PO2 VENOUS (BEAKER) (test svjn=712) 50 mmHg 25-40 O2 SATURATION VENOUS (BEAKER) (test ivda=601) 83.5 % 40.0-70.0 HCO3 VENOUS (BEAKER) (test xldy=716) 17 mmol/L 21-29 BASE EXCESS VENOUS (BEAKER) (test xmgy=713) -7.7 mmol/L -2.0-3.0 PATIENT TEMPERATURE (BEAKER) (test rvry=7108) 37.0 C FIO2 (BEAKER) (test zpyz=5349) 21.0 % STREP PNEUMONIAE [id number] 04:39:00 Test Item Value Reference Range Comments STREP PNEUMONIAE ANTIGEN Presumptive negative for Presumptive negative for (BEAKER) (test pneumococcal pneumonia - pneumococcal pneumonia - gqub=7360) see comment see commen Presumptive negative for pneumococcal pneumonia, suggesting no current or recent pneumococcal infection. Infection due to S. pneumoniae cannot be ruled out since the antigen present in the sample may be below the detection limit of the test.LEGIONELLA ANTIGEN, [id number] 04:39:00 Test Item Value Reference Range Comments L. PNEUMOPHILA SEROGP 1 Negative - see Negative for L. UR AG (BEAKER) (test comment pneumophila serogroup 1 llnp=3441) antigen, suggesting no recent or current infection with this serogroup. Legionellosis cannot be ruled out since other serogroups and species may cause disease. [id number] 02:38:00 Test Item Value Reference Range Comments POTASSIUM (BEAKER) (test kqjp=067) 5.2 meq/L 3.5-5.1 LACTIC ACID, ARTERIAL, WHOLE [id number] 02:38:00 Test Item Value Reference Range Comments LACTATE BLOOD ARTERIAL (2) 6.1 mmol/L 0.5-2.2 Specimen slightly hemolyzed (BEAKER) (test cpae=2285) Effective 11/02/2015: Units/Reference Range ChangeNew: 0.5-2.2 mmol/L Previous: 5 -20 mg/dLBLOOD GAS, [id number] 02:17:00 Test Item Value Reference Range Comments PH VENOUS (BEAKER) (test dcpm=020) 7.27 7.32-7.42 PCO2 VENOUS (BEAKER) (test ufoh=715) 31 mmHg 41-51 PO2 VENOUS (BEAKER) (test gpid=424) 49 mmHg 25-40 O2 SATURATION VENOUS (BEAKER) (test iwpl=922) 80.2 % 40.0-70.0 HCO3 VENOUS (BEAKER) (test ikuq=952) 14 mmol/L 21-29 BASE EXCESS VENOUS (BEAKER) (test bglt=064) -11.7 mmol/L -2.0-3.0 PATIENT TEMPERATURE (BEAKER) (test rycx=2957) 37.0 C FIO2 (BEAKER) (test fsvv=8588) 100.0 % BASIC METABOLIC [id number] 01:24:00 Test Item Value Reference Range Comments SODIUM (BEAKER) (test 137 meq/L 136-145 wbrr=658) POTASSIUM (BEAKER) (test 5.8 meq/L 3.5-5.1 sdjh=185) CHLORIDE (BEAKER) (test 114 meq/L 98-107 kdri=378) CO2 (BEAKER) (test 9 meq/L 22-29 nvzd=308) BLOOD UREA NITROGEN 36 mg/dL 7-21 (BEAKER) (test dcyn=313) CREATININE (BEAKER) (test 1.82 mg/dL 0.57-1.25 krkf=061) GLUCOSE RANDOM (BEAKER) 93 mg/dL 70-105 (test rooy=827) CALCIUM (BEAKER) (test 7.7 mg/dL 8.4-10.2 wkoh=941) EGFR (BEAKER) (test 38 mL/min/1.73 sq m ESTIMATED GFR IS NOT hzeg=7126) ACCURATE CREATININE CLEARANCE IN PREDICTING GLOMERULAR FILTRATION RATE. ESTIMATED GFR IS NOT APPLICABLE FOR DIALYSIS PATIENTS. [id number] 01:12:00 Test Item Value Reference Range Comments MAGNESIUM (BEAKER) (test dqdc=245) 1.2 mg/dL 1.6-2.6 LACTIC ACID, VENOUS, WHOLE [id number] 01:04:00 Test Item Value Reference Range Comments LACTATE BLOOD VENOUS (2) (BEAKER) (test 6.2 mmol/L 0.5-2.2 uifv=1957) Effective 11/02/2015: Units/Reference Range ChangeNew: 0.5-2.2 mmol/L Previous: 5 -20 mg/dLCALCIUM, [id number] 00:32:00 Test Item Value Reference Range Comments CALCIUM IONIZED (BEAKER) (test icub=847) 1.05 mmol/L 1.12-1.27 PH, BLOOD (BEAKER) (test nksx=7318) 7.22 BLOOD GAS, [id number] 00:31:00 Test Item Value Reference Range Comments PH VENOUS (BEAKER) (test zoqh=730) 7.22 7.32-7.42 PCO2 VENOUS (BEAKER) (test ttnw=053) 29 mmHg 41-51 PO2 VENOUS (BEAKER) (test sgje=247) 51 mmHg 25-40 O2 SATURATION VENOUS (BEAKER) (test jeog=996) 79.7 % 40.0-70.0 HCO3 VENOUS (BEAKER) (test qopw=115) 12 mmol/L 21-29 BASE EXCESS VENOUS (BEAKER) (test wtrg=688) -14.5 mmol/L -2.0-3.0 PATIENT TEMPERATURE (BEAKER) (test nirk=6692) 37.0 C FIO2 (BEAKER) (test lsnq=3940) 21.0 % HEMOGLOBIN AND [id number] 00:28:00 Test Item Value Reference Range Comments HEMOGLOBIN (BEAKER) (test xgsy=945) 9.9 GM/DL 13.7-17.5 HEMATOCRIT (BEAKER) (test zybh=307) 31.0 % 40.1-51.0 (CELLAVISION MANUAL DIFF)2017-12-26 22:19:00 Test Item Value Reference Range Comments NEUTROPHILS - REL (CELLAVISION)(BEAKER) (test 61 % wtvn=5543) LYMPHOCYTES - REL (CELLAVISION)(BEAKER) (test 2 % tano=8582) MONOCYTES - REL (CELLAVISION)(BEAKER) (test 12 % klhj=0898) METAMYELOCYTES - REL (CELLAVISION)(BEAKER) (test 1 % 0-0 loxv=6719) BANDS - REL (CELLAVISION)(BEAKER) (test 24 % 0-10 mxya=5567) NEUTROPHILS - ABS (CELLAVISION)(BEAKER) (test 10.61 K/ul 1.78-5.38 nnhw=3479) LYMPHOCYTES - ABS (CELLAVISION)(BEAKER) (test 0.35 K/ul 1.32-3.57 vjpw=1092) MONOCYTES - ABS (CELLAVISION)(BEAKER) (test 2.09 K/uL 0.30-0.82 uelk=3078) METAMYELOCYTES - ABS (CELLAVISION)(BEAKER) (test 0.17 K/uL 0.00-0.00 towt=5073) BANDS - ABS (CELLAVISION)(BEAKER) (test 4.18 K/uL 0.00-0.80 xjni=5464) TOTAL COUNTED (BEAKER) (test eujh=9052) 100 WBC MORPHOLOGY (BEAKER) (test kylo=024) Normal GIANT PLATELETS (BEAKER) (test mxtj=725) Present POLYCHROMATOPHILLIC RBCS(BEAKER) (test jlot=303) 1+ few HYPOCHROMIA (BEAKER) (test ugbl=209) 1+ few ANISOCYTOSIS (BEAKER) (test pjoz=211) 1+ few MICROCYTES (BEAKER) (test gdin=140) 1+ few POIKILOCYTES (BEAKER) (test tgkc=321) 3+ many PLATELET CONCENTRATION (CELLAVISION)(BEAKER) Decreased (test xjcq=3788) Received comment: User comments: Slide comments:COMPREHENSIVE METABOLIC [id number] 22:18:00 Test Item Value Reference Range Comments TOTAL PROTEIN (BEAKER) 4.4 gm/dL 6.0-8.3 (test ytsy=950) ALBUMIN (BEAKER) (test 3.3 g/dL 3.5-5.0 sbdw=9682) ALKALINE PHOSPHATASE 210 U/L 40-150 (BEAKER) (test qvbd=148) BILIRUBIN TOTAL (BEAKER) 1.2 mg/dL 0.2-1.2 (test mbsp=726) SODIUM (BEAKER) (test 141 meq/L 136-145 yjbq=837) POTASSIUM (BEAKER) (test 5.6 meq/L 3.5-5.1 ubju=289) CHLORIDE (BEAKER) (test 117 meq/L 98-107 nysl=545) CO2 (BEAKER) (test 10 meq/L 22-29 rvoc=679) BLOOD UREA NITROGEN 33 mg/dL 7-21 (BEAKER) (test mkhr=736) CREATININE (BEAKER) (test 1.97 mg/dL 0.57-1.25 qlbs=547) GLUCOSE RANDOM (BEAKER) 84 mg/dL 70-105 (test biog=257) CALCIUM (BEAKER) (test 7.8 mg/dL 8.4-10.2 ssrc=504) AST (SGOT) (BEAKER) (test 49 U/L 5-34 skwl=471) ALT (SGPT) (BEAKER) (test 51 U/L 6-55 rigd=399) EGFR (BEAKER) (test 35 mL/min/1.73 sq m ESTIMATED GFR IS NOT zrcs=4736) ACCURATE CREATININE CLEARANCE IN PREDICTING GLOMERULAR FILTRATION RATE. ESTIMATED GFR IS NOT APPLICABLE FOR DIALYSIS PATIENTS. CBC W/PLT COUNT & AUTO [id number] 22:18:00 Test Item Value Reference Range Comments WHITE BLOOD CELL COUNT (BEAKER) (test ymmg=253) 17.4 K/ L 3.5-10.5 RED BLOOD CELL COUNT (BEAKER) (test hxub=027) 3.52 M/ L 4.63-6.08 HEMOGLOBIN (BEAKER) (test xtxy=194) 10.7 GM/DL 13.7-17.5 HEMATOCRIT (BEAKER) (test snoy=678) 35.9 % 40.1-51.0 MEAN CORPUSCULAR VOLUME (BEAKER) (test lrlm=789) 102.0 fL 79.0-92.2 MEAN CORPUSCULAR HEMOGLOBIN (BEAKER) (test 30.4 pg 25.7-32.2 ymgp=666) MEAN CORPUSCULAR HEMOGLOBIN CONC (BEAKER) (test 29.8 GM/DL 32.3-36.5 xpsn=744) RED CELL DISTRIBUTION WIDTH (BEAKER) (test 14.8 % 11.6-14.4 olgm=542) PLATELET COUNT (BEAKER) (test zmfo=675) 92 K/CU MM 150-450 MEAN PLATELET VOLUME (BEAKER) (test yayh=695) 12.2 fL 9.4-12.4 NUCLEATED RED BLOOD CELLS (BEAKER) (test 0 /100 WBC 0-0 riab=582) LACTIC ACID, VENOUS, WHOLE [id number] 22:08:00 Test Item Value Reference Range Comments LACTATE BLOOD VENOUS (2) (BEAKER) (test 9.1 mmol/L 0.5-2.2 eniq=3176) Effective 11/02/2015: Units/Reference Range ChangeNew: 0.5-2.2 mmol/L Previous: 5 -20 mg/dLRAD, CHEST, 1 VIEW, NON [id number] 21:46:00Reason for exam:-> SOBFINAL REPORT RAD, CHEST, 1 VIEW, NON DEPT INDICATION: SOB COMPARISON: Prior day's exam FINDINGS: Portable frontal view of the chest. IMPRESSION: Support Lines: None. Lungs andpleura: Bibasilar subsegmental atelectasis. Right basilar consolidation, concerning for developing pneumonia. Trace bilateral effusions. No pneumothorax.Heart and mediastinum: Stable contours. Stable surgical changes.Additional findings: None. Signed: JR Rizzo Robert MDReport Verified Date/Time: 12/26/2017 21:46:39 Reading Location: [address] Reading Room TACROLIMUS [id number] 15: 12:00 Test Item Value Reference Range Comments TACROLIMUS BLOOD (BEAKER) (test edyz=248) 11.5 ng/mL 10.0-20.0 [id number] 11:00:00 Test Item Value Reference Range Comments MAGNESIUM (BEAKER) (test ajmv=750) 1.9 mg/dL 1.6-2.6 BASIC METABOLIC [id number] 11:00:00 Test Item Value Reference Range Comments SODIUM (BEAKER) (test 141 meq/L 136-145 khcf=173) POTASSIUM (BEAKER) (test 5.1 meq/L 3.5-5.1 jipz=196) CHLORIDE (BEAKER) (test 109 meq/L 98-107 jpuu=633) CO2 (BEAKER) (test 25 meq/L 22-29 xzho=177) BLOOD UREA NITROGEN 31 mg/dL 7-21 (BEAKER) (test fmqz=303) CREATININE (BEAKER) (test 1.59 mg/dL 0.57-1.25 klro=758) GLUCOSE RANDOM (BEAKER) 129 mg/dL 70-105 (test zemr=971) CALCIUM (BEAKER) (test 9.2 mg/dL 8.4-10.2 czzt=677) EGFR (BEAKER) (test 45 mL/min/1.73 sq m ESTIMATED GFR IS NOT cjdm=2584) ACCURATE CREATININE CLEARANCE IN PREDICTING GLOMERULAR FILTRATION RATE. ESTIMATED GFR IS NOT APPLICABLE FOR DIALYSIS PATIENTS. CBC W/PLT COUNT & AUTO [id number] 10:42:00 Test Item Value Reference Range Comments WHITE BLOOD CELL COUNT (BEAKER) (test ftqp=524) 3.9 K/ L 3.5-10.5 RED BLOOD CELL COUNT (BEAKER) (test ebzi=062) 3.75 M/ L 4.63-6.08 HEMOGLOBIN (BEAKER) (test jwhk=744) 11.8 GM/DL 13.7-17.5 HEMATOCRIT (BEAKER) (test obyr=538) 36.3 % 40.1-51.0 MEAN CORPUSCULAR VOLUME (BEAKER) (test hxrw=370) 96.8 fL 79.0-92.2 MEAN CORPUSCULAR HEMOGLOBIN (BEAKER) (test 31.5 pg 25.7-32.2 rnry=041) MEAN CORPUSCULAR HEMOGLOBIN CONC (BEAKER) (test 32.5 GM/DL 32.3-36.5 berl=340) RED CELL DISTRIBUTION WIDTH (BEAKER) (test 14.0 % 11.6-14.4 emok=675) PLATELET COUNT (BEAKER) (test gyao=499) 73 K/CU MM 150-450 MEAN PLATELET VOLUME (BEAKER) (test tifp=031) 9.9 fL 9.4-12.4 NUCLEATED RED BLOOD CELLS (BEAKER) (test 0 /100 WBC 0-0 ntyw=906) NEUTROPHILS RELATIVE PERCENT (BEAKER) (test 75 % oakm=417) LYMPHOCYTES RELATIVE PERCENT (BEAKER) (test 14 % clin=684) MONOCYTES RELATIVE PERCENT (BEAKER) (test 8 % pktv=716) EOSINOPHILS RELATIVE PERCENT (BEAKER) (test 2 % uhij=516) BASOPHILS RELATIVE PERCENT (BEAKER) (test 1 % iadb=697) NEUTROPHILS ABSOLUTE COUNT (BEAKER) (test 2.96 K/ L 1.78-5.38 uacn=158) LYMPHOCYTES ABSOLUTE COUNT (BEAKER) (test 0.53 K/ L 1.32-3.57 bgyj=017) MONOCYTES ABSOLUTE COUNT (BEAKER) (test zzeg=466) 0.30 K/ L 0.30-0.82 EOSINOPHILS ABSOLUTE COUNT (BEAKER) (test 0.09 K/ L 0.04-0.54 lpmh=511) BASOPHILS ABSOLUTE COUNT (BEAKER) (test nafd=668) 0.03 K/ L 0.01-0.08 IMMATURE GRANULOCYTES-RELATIVE PERCENT (BEAKER) 1 % 0-1 (test oemn=7717) BLOOD [id number] 13:27:00 Test Item Value Reference Range Comments CULTURE (BEAKER) (test kybo=7666) No growth in 5 days SPUTUM CULTURE + GRAM [id number] 13:39:00 Test Item Value Reference Range Comments CULTURE (BEAKER) (test 2+ Normal respiratory tre igcs=4579) present GRAM STAIN RESULT (BEAKER) 3+ WBCs (test tfod=6455) GRAM STAIN RESULT (BEAKER) 0-5 epithelial cells (test goru=26465) GRAM STAIN RESULT (BEAKER) No organisms seen (test gmup=67349) TACROLIMUS [id number] 09:48:00 Test Item Value Reference Range Comments TACROLIMUS BLOOD (BEAKER) (test tayf=541) 7.3 ng/mL 10.0-20.0 BASIC METABOLIC [id number] 06:43:00 Test Item Value Reference Range Comments SODIUM (BEAKER) (test 139 meq/L 136-145 xlgf=170) POTASSIUM (BEAKER) (test 4.6 meq/L 3.5-5.1 ouiy=886) CHLORIDE (BEAKER) (test 111 meq/L 98-107 mjnv=960) CO2 (BEAKER) (test 20 meq/L 22-29 ixra=769) BLOOD UREA NITROGEN 26 mg/dL 7-21 (BEAKER) (test hgko=743) CREATININE (BEAKER) (test 1.26 mg/dL 0.57-1.25 iaqt=215) GLUCOSE RANDOM (BEAKER) 171 mg/dL 70-105 (test sift=806) CALCIUM (BEAKER) (test 8.3 mg/dL 8.4-10.2 jimv=788) EGFR (BEAKER) (test 59 mL/min/1.73 sq m ESTIMATED GFR IS NOT xrzt=9091) ACCURATE CREATININE CLEARANCE IN PREDICTING GLOMERULAR FILTRATION RATE. ESTIMATED GFR IS NOT APPLICABLE FOR DIALYSIS PATIENTS. CBC W/PLT COUNT & AUTO [id number] 06:41:00 Test Item Value Reference Range Comments WHITE BLOOD CELL COUNT (BEAKER) (test yjee=640) 5.0 K/ L 4.0-10.0 RED BLOOD CELL COUNT (BEAKER) (test ptll=827) 3.62 M/ L 4.20-5.80 HEMOGLOBIN (BEAKER) (test ubeq=109) 11.5 GM/DL 13.0-16.8 HEMATOCRIT (BEAKER) (test euvj=362) 35.2 % 40.0-50.0 MEAN CORPUSCULAR VOLUME (BEAKER) (test zwgx=488) 97.2 fL 82.0-98.0 MEAN CORPUSCULAR HEMOGLOBIN (BEAKER) (test 31.9 pg 27.0-33.0 zjif=335) MEAN CORPUSCULAR HEMOGLOBIN CONC (BEAKER) (test 32.9 GM/DL 32.0-36.0 jodx=632) RED CELL DISTRIBUTION WIDTH (BEAKER) (test 12.0 % 10.3-14.2 vlgp=936) PLATELET COUNT (BEAKER) (test odov=921) 116 K/CU MM 150-430 MEAN PLATELET VOLUME (BEAKER) (test vnwt=161) 7.6 fL 6.5-10.5 NUCLEATED RED BLOOD CELLS (BEAKER) (test 0 /100 WBC 0-0 eqrs=040) NEUTROPHILS RELATIVE PERCENT (BEAKER) (test 85 % gaae=362) LYMPHOCYTES RELATIVE PERCENT (BEAKER) (test 10 % lemz=895) MONOCYTES RELATIVE PERCENT (BEAKER) (test 4 % bmfi=576) EOSINOPHILS RELATIVE PERCENT (BEAKER) (test 1 % zljq=177) BASOPHILS RELATIVE PERCENT (BEAKER) (test 0 % kxcs=905) NEUTROPHILS ABSOLUTE COUNT (BEAKER) (test 4.24 K/ L 1.80-8.00 rnmn=894) LYMPHOCYTES ABSOLUTE COUNT (BEAKER) (test 0.51 K/ L 1.48-4.50 zuzy=144) MONOCYTES ABSOLUTE COUNT (BEAKER) (test 0.20 K/ L 0.00-1.30 hwpb=715) EOSINOPHILS ABSOLUTE COUNT (BEAKER) (test 0.03 K/ L 0.00-0.50 ivvq=845) BASOPHILS ABSOLUTE COUNT (BEAKER) (test 0.02 K/ L 0.00-0.20 ajvw=946) 0.00TACROLIMUS [id number] 12:16:00 Test Item Value Reference Range Comments TACROLIMUS BLOOD (BEAKER) (test utqm=256) 7.3 ng/mL 10.0-20.0 CBC W/PLT COUNT & AUTO [id number] 07:26:00 Test Item Value Reference Range Comments WHITE BLOOD CELL COUNT (BEAKER) (test ffec=001) 4.3 K/ L 4.0-10.0 RED BLOOD CELL COUNT (BEAKER) (test dzrh=441) 3.40 M/ L 4.20-5.80 HEMOGLOBIN (BEAKER) (test xfbg=882) 11.2 GM/DL 13.0-16.8 HEMATOCRIT (BEAKER) (test pnfg=490) 32.3 % 40.0-50.0 MEAN CORPUSCULAR VOLUME (BEAKER) (test dtrv=763) 95.0 fL 82.0-98.0 MEAN CORPUSCULAR HEMOGLOBIN (BEAKER) (test 32.9 pg 27.0-33.0 rytn=785) MEAN CORPUSCULAR HEMOGLOBIN CONC (BEAKER) (test 34.6 GM/DL 32.0-36.0 twdu=496) RED CELL DISTRIBUTION WIDTH (BEAKER) (test 12.8 % 10.3-14.2 cazd=685) PLATELET COUNT (BEAKER) (test hqhk=525) 109 K/CU MM 150-430 MEAN PLATELET VOLUME (BEAKER) (test klnx=005) 7.3 fL 6.5-10.5 NUCLEATED RED BLOOD CELLS (BEAKER) (test 0 /100 WBC 0-0 pxxn=187) NEUTROPHILS RELATIVE PERCENT (BEAKER) (test 72 % skdr=871) LYMPHOCYTES RELATIVE PERCENT (BEAKER) (test 18 % qmea=285) MONOCYTES RELATIVE PERCENT (BEAKER) (test 8 % bsbe=121) EOSINOPHILS RELATIVE PERCENT (BEAKER) (test 2 % xqkp=153) BASOPHILS RELATIVE PERCENT (BEAKER) (test 0 % mmcq=815) NEUTROPHILS ABSOLUTE COUNT (BEAKER) (test 3.07 K/ L 1.80-8.00 blzg=163) LYMPHOCYTES ABSOLUTE COUNT (BEAKER) (test 0.77 K/ L 1.48-4.50 wtun=876) MONOCYTES ABSOLUTE COUNT (BEAKER) (test 0.33 K/ L 0.00-1.30 leqw=935) EOSINOPHILS ABSOLUTE COUNT (BEAKER) (test 0.09 K/ L 0.00-0.50 bpnf=819) BASOPHILS ABSOLUTE COUNT (BEAKER) (test 0.01 K/ L 0.00-0.20 suer=918) 0.00BASIC METABOLIC [id number] 06:50:00 Test Item Value Reference Range Comments SODIUM (BEAKER) (test 141 meq/L 136-145 tnbd=230) POTASSIUM (BEAKER) (test 3.7 meq/L 3.5-5.1 sczv=389) CHLORIDE (BEAKER) (test 111 meq/L 98-107 xhwu=980) CO2 (BEAKER) (test 24 meq/L 22-29 mmgo=568) BLOOD UREA NITROGEN 20 mg/dL 7-21 (BEAKER) (test wybt=890) CREATININE (BEAKER) (test 1.13 mg/dL 0.57-1.25 bpaa=229) GLUCOSE RANDOM (BEAKER) 128 mg/dL 70-105 (test icia=122) CALCIUM (BEAKER) (test 8.3 mg/dL 8.4-10.2 ryjv=607) EGFR (BEAKER) (test 66 mL/min/1.73 sq m ESTIMATED GFR IS NOT zvjr=8772) ACCURATE CREATININE CLEARANCE IN PREDICTING GLOMERULAR FILTRATION RATE. ESTIMATED GFR IS NOT APPLICABLE FOR DIALYSIS PATIENTS. SPUTUM CULTURE + GRAM [id number] 15:49:00 Test Item Value Reference Range Comments CULTURE (BEAKER) (test Oropharyngeal contamination, eufz=1086) specimen rejected. Recollect requested. GRAM STAIN RESULT (BEAKER) 3+ White blood cells seen (test ozgz=2661) GRAM STAIN RESULT (BEAKER) >25 epithelial cells (test eawm=09982) GRAM STAIN RESULT (BEAKER) <1+ gram negative rods (test ebkw=57855) TACROLIMUS [id number] 13:39:00 Test Item Value Reference Range Comments TACROLIMUS BLOOD (BEAKER) (test pirs=042) 6.1 ng/mL 10.0-20.0 RESPIRATORY PANEL [id number] 13:06:00 Test Item Value Reference Range Comments HUMAN METAPNEUMOVIRUS (BEAKER) (test Not detected Not detected, Inconclusive xqsa=6376) RHINOVIRUS (BEAKER) (test nbjk=8886) Not detected Not detected, Inconclusive INFLUENZA A (BEAKER) (test Not detected Not detected, Inconclusive ircg=0155) INFLUENZA A SUBTYPE H1 (BEAKER) Not detected Not detected, Inconclusive (test flvd=5229) INFLUENZA A SUBTYPE H3 (BEAKER) Not detected Not detected, Inconclusive (test uwud=9101) INFLUENZA A SUBTYPE H1-2009 (BEAKER) Not detected Not detected, Inconclusive (test hnfo=1290) INFLUENZA B (BEAKER) (test Not detected Not detected, Inconclusive itrc=7642) RESPIRATORY SYNCYTIAL VIRUS (BEAKER) Not detected Not detected, Inconclusive (test vfva=6903) PARAINFLUENZA VIRUS 1 (BEAKER) (test Not detected Not detected, Inconclusive pzzc=3885) PARAINFLUENZA VIRUS 2 (BEAKER) (test Not detected Not detected, Inconclusive oukw=1795) PARAINFLUENZA VIRUS 3 (BEAKER) (test Not detected Not detected, Inconclusive fylw=0563) PARAINFLUENZA VIRUS 4 (BEAKER) (test Not detected Not detected, Inconclusive cucx=8546) ADENOVIRUS (BEAKER) (test jnsz=6507) Not detected Not detected, Inconclusive CORONAVIRUS 229E (BEAKER) (test Not detected Not detected, Inconclusive nipy=5290) CORONAVIRUS HKU1 (BEAKER) (test Not detected Not detected, Inconclusive onmu=6330) CORONAVIRUS NL63 (BEAKER) (test Not detected Not detected, Inconclusive mwmb=0551) CORONAVIRUS OC43 (BEAKER) (test Not detected Not detected, Inconclusive yerd=7928) BORDETELLA PERTUSSIS (BEAKER) (test Not detected Not detected, Inconclusive kyhl=9877) CHLAMYDOPHILA PNEUMONIAE (BEAKER) Not detected Not detected, Inconclusive (test kbxk=3478) MYCOPLASMA PNEUMONIAE (BEAKER) (test Not detected Not detected, Inconclusive haum=7065) TACROLIMUS [id number] 11:17:00 Test Item Value Reference Range Comments TACROLIMUS BLOOD (BEAKER) (test exmm=729) 5.9 ng/mL 10.0-20.0 BASIC METABOLIC [id number] 07:20:00 Test Item Value Reference Range Comments SODIUM (BEAKER) (test 141 meq/L 136-145 qmxm=399) POTASSIUM (BEAKER) (test 4.4 meq/L 3.5-5.1 Specimen slightly ptab=468) hemolyzed CHLORIDE (BEAKER) (test 112 meq/L 98-107 egzy=510) CO2 (BEAKER) (test 19 meq/L 22-29 qkxk=351) BLOOD UREA NITROGEN 25 mg/dL 7-21 (BEAKER) (test rnna=997) CREATININE (BEAKER) (test 1.23 mg/dL 0.57-1.25 Specimen slightly pukp=492) hemolyzed GLUCOSE RANDOM (BEAKER) 137 mg/dL 70-105 (test ugyp=289) CALCIUM (BEAKER) (test 8.8 mg/dL 8.4-10.2 kdxp=902) EGFR (BEAKER) (test 60 mL/min/1.73 sq m ESTIMATED GFR IS NOT wmos=8497) ACCURATE CREATININE CLEARANCE IN PREDICTING GLOMERULAR FILTRATION RATE. ESTIMATED GFR IS NOT APPLICABLE FOR DIALYSIS PATIENTS. CBC W/PLT COUNT & AUTO [id number] 07:16:00 Test Item Value Reference Range Comments WHITE BLOOD CELL COUNT (BEAKER) (test ptpw=897) 6.1 K/ L 4.0-10.0 RED BLOOD CELL COUNT (BEAKER) (test drqq=844) 4.01 M/ L 4.20-5.80 HEMOGLOBIN (BEAKER) (test hvma=493) 12.5 GM/DL 13.0-16.8 HEMATOCRIT (BEAKER) (test mhbp=186) 39.1 % 40.0-50.0 MEAN CORPUSCULAR VOLUME (BEAKER) (test jdki=337) 97.5 fL 82.0-98.0 MEAN CORPUSCULAR HEMOGLOBIN (BEAKER) (test 31.0 pg 27.0-33.0 wqmd=331) MEAN CORPUSCULAR HEMOGLOBIN CONC (BEAKER) (test 31.8 GM/DL 32.0-36.0 yzww=129) RED CELL DISTRIBUTION WIDTH (BEAKER) (test 12.2 % 10.3-14.2 ifjp=877) PLATELET COUNT (BEAKER) (test rxjk=867) 125 K/CU MM 150-430 MEAN PLATELET VOLUME (BEAKER) (test dmft=963) 7.9 fL 6.5-10.5 NUCLEATED RED BLOOD CELLS (BEAKER) (test 0 /100 WBC 0-0 rnbg=812) NEUTROPHILS RELATIVE PERCENT (BEAKER) (test 76 % hszg=917) LYMPHOCYTES RELATIVE PERCENT (BEAKER) (test 15 % ybwn=858) MONOCYTES RELATIVE PERCENT (BEAKER) (test 8 % sxvm=924) EOSINOPHILS RELATIVE PERCENT (BEAKER) (test 1 % zmwp=799) BASOPHILS RELATIVE PERCENT (BEAKER) (test 0 % fyke=067) NEUTROPHILS ABSOLUTE COUNT (BEAKER) (test 4.59 K/ L 1.80-8.00 xgqb=149) LYMPHOCYTES ABSOLUTE COUNT (BEAKER) (test 0.93 K/ L 1.48-4.50 ppod=720) MONOCYTES ABSOLUTE COUNT (BEAKER) (test 0.48 K/ L 0.00-1.30 qqwo=857) EOSINOPHILS ABSOLUTE COUNT (BEAKER) (test 0.06 K/ L 0.00-0.50 mfrf=542) BASOPHILS ABSOLUTE COUNT (BEAKER) (test 0.01 K/ L 0.00-0.20 spbl=882) 0.00CREATINE KINASE (CK), TOTAL AND [id number] 18:57:00 Test Item Value Reference Range Comments CREATINE KINASE TOTAL (BEAKER) (test mmyh=007) 35 U/L 29-200 CREATINE KINASE-MB (BEAKER) (test udfg=395) 0.9 ng/mL 0.0-6.6 CREATINE KINASE-MB INDEX (BEAKER) (test ahsw=947) 2.6 % Effective 05/18/2014: CK-MB Reference Range ChangeNew: 0.0-6.6 Previous: 0.0- 4.9CK-MB Reference Range:<6.7 Normal6.7-10.0 Borderline>10.0 AbnormalTROPONIN [id number] 18:57:00 Test Item Value Reference Range Comments TROPONIN I (BEAKER) (test cano=422) < ng/mL 0.00-0.03 Effective 05/18/2014: Reference Range ChangeNew: 0.00-0.03 Previous 0.00- 0.15Troponin I (TnI) levels must be interpreted in the context of the presenting symptoms and the clinical findings. Elevated TnI levels indicate myocardial damage, but are not specific for ischemic heart disease. Elevated TnI levels are seen in patients with other cardiac conditions (including myocarditis and congestive heartfailure), and slight TnI elevations occur in patients with other conditions, including sepsis, renalfailure, acidosis, acute neurological disease, and persistent tachyarrhythmia.B-TYPE NATRIURETIC FACTOR ( BNP)[id number] 18:57:00 Test Item Value Reference Range Comments B-TYPE NATRIURETIC PEPTIDE (BEAKER) (test etnw=623) 61 pg/mL 0-100 BASIC METABOLIC [id number] 18:50:00 Test Item Value Reference Range Comments SODIUM (BEAKER) (test 141 meq/L 136-145 mknv=324) POTASSIUM (BEAKER) (test 3.8 meq/L 3.5-5.1 Specimen slightly ygdx=624) hemolyzed CHLORIDE (BEAKER) (test 107 meq/L 98-107 rgpy=003) CO2 (BEAKER) (test 20 meq/L 22-29 pcrw=649) BLOOD UREA NITROGEN 28 mg/dL 7-21 (BEAKER) (test moyu=572) CREATININE (BEAKER) (test 1.45 mg/dL 0.57-1.25 Specimen slightly ukwt=804) hemolyzed GLUCOSE RANDOM (BEAKER) 202 mg/dL 70-105 (test yoik=858) CALCIUM (BEAKER) (test 9.4 mg/dL 8.4-10.2 rogj=558) EGFR (BEAKER) (test 50 mL/min/1.73 sq m ESTIMATED GFR IS NOT vegj=7549) ACCURATE CREATININE CLEARANCE IN PREDICTING GLOMERULAR FILTRATION RATE. ESTIMATED GFR IS NOT APPLICABLE FOR DIALYSIS PATIENTS. [id number] 18:50:00 Test Item Value Reference Range Comments PROTIME (BEAKER) (test fapl=845) 15.2 seconds 11.7-14.7 INR (BEAKER) (test fsod=754) 1.2 <=5.9 PARTIAL THROMBOPLASTIN TIME (BEAKER) (test 33.6 seconds 22.5-36.0 itfd=896) RECOMMENDED COUMADIN/WARFARIN INR THERAPY RANGESSTANDARD DOSE: 2.0 - 3.0 Includes: PROPHYLAXIS forvenous thrombosis, systemic embolization; TREATMENT for venous thrombosis and/or pulmonary embolus.HIGH RISK: Target INR is 2.5-3.5 for patients with mechanical heart valves.CBC W/PLT COUNT & AUTO [id number] 18:47:00 Test Item Value Reference Range Comments WHITE BLOOD CELL COUNT (BEAKER) (test xcjf=987) 10.0 K/ L 4.0-10.0 RED BLOOD CELL COUNT (BEAKER) (test wjac=981) 4.52 M/ L 4.20-5.80 HEMOGLOBIN (BEAKER) (test unub=243) 14.6 GM/DL 13.0-16.8 HEMATOCRIT (BEAKER) (test ghil=727) 42.8 % 40.0-50.0 MEAN CORPUSCULAR VOLUME (BEAKER) (test npnw=147) 94.7 fL 82.0-98.0 MEAN CORPUSCULAR HEMOGLOBIN (BEAKER) (test 32.3 pg 27.0-33.0 qunr=846) MEAN CORPUSCULAR HEMOGLOBIN CONC (BEAKER) (test 34.1 GM/DL 32.0-36.0 sboi=732) RED CELL DISTRIBUTION WIDTH (BEAKER) (test 12.2 % 10.3-14.2 kfzl=208) PLATELET COUNT (BEAKER) (test bxvf=605) 158 K/CU MM 150-430 MEAN PLATELET VOLUME (BEAKER) (test dnmh=413) 7.4 fL 6.5-10.5 NUCLEATED RED BLOOD CELLS (BEAKER) (test 0 /100 WBC 0-0 kjvg=754) NEUTROPHILS RELATIVE PERCENT (BEAKER) (test 81 % qvcd=807) LYMPHOCYTES RELATIVE PERCENT (BEAKER) (test 12 % ksrp=621) MONOCYTES RELATIVE PERCENT (BEAKER) (test 6 % inry=864) EOSINOPHILS RELATIVE PERCENT (BEAKER) (test 1 % ssnn=904) BASOPHILS RELATIVE PERCENT (BEAKER) (test 0 % fafd=626) NEUTROPHILS ABSOLUTE COUNT (BEAKER) (test 8.10 K/ L 1.80-8.00 staw=078) LYMPHOCYTES ABSOLUTE COUNT (BEAKER) (test 1.18 K/ L 1.48-4.50 yipc=421) MONOCYTES ABSOLUTE COUNT (BEAKER) (test 0.59 K/ L 0.00-1.30 yuou=316) EOSINOPHILS ABSOLUTE COUNT (BEAKER) (test 0.08 K/ L 0.00-0.50 ywdo=162) BASOPHILS ABSOLUTE COUNT (BEAKER) (test 0.02 K/ L 0.00-0.20 zyve=082) 0.00LACTIC ACID, VENOUS, WHOLE [id number] 18:46:00 Test Item Value Reference Range Comments LACTATE BLOOD VENOUS (2) 1.7 mmol/L 0.5-2.2 Specimen moderately hemolyzed (BEAKER) (test yhxj=5106) Effective 11/02/2015: Units/Reference Range ChangeNew: 0.5-2.2 mmol/L Previous: 5 -20 mg/dL
[2019-07-05] MEDS ORDERED: NA CHLORIDE 0.9% 1,000 ML ONE ×2 (20:38→21:06)
[2019-07-05] MEDS ORDERED: NA CHLORIDE 0.9% 500 ML ONE (20:47)
[2019-07-05] MEDS ORDERED: IBUPROFEN 200 MG TAB PO ONE (20:47)
[2019-07-05] MEDS ORDERED: VANCOMYCIN 1 GM/VIAL ONE (20:47)
[2019-07-05] MEDS ORDERED: NA CHLORIDE 0.9% 250 ML ONE (20:47)
[2019-07-05] MEDS ORDERED: CEFEPIME 1 GM/100 ML BAG IV ONE ×2 (20:48→21:46)
[2019-07-05 21:23] LABS: Absolute Lymphocytes (CBC) 0.5 K/uL (0.7-4.9); Basophils % 0.3 % (0-1.3); Hematocrit 30.4 % (39.6-49.0); Lymphocytes % 4.8 % (15.3-44.8); MPV 8.3 fL (7.6-11.3); RBC Red Blood Cell Count 3.38 M/uL (4.33-5.43)
--- NOTE | 2019-07-05 21:26 | RAD REPORT ---
EXAM DESCRIPTION: RAD - Chest Single View - 07/05/2019 9:10 pm CLINICAL HISTORY: CHEST PAIN Chest pain. COMPARISON: Chest Single View dated 04/21/2019; CHEST PA AND LAT 2 VIEW dated 02/07/2012; CHEST SINGLE VIEW dated 09/29/2010; CHEST PA AND LAT 2 VIEW dated 10/31/2009 FINDINGS: Portable technique limits examination quality. Moderate airspace opacity is seen in the left lower lobe most compatible with pneumonia. The heart is upper limit of normal in size. Sternotomy wires. IMPRESSION: Left lower lung pneumonia suspected.
[2019-07-05 21:30] LABS: Protime INR 1.44
[2019-07-05 21:46] LABS: ALT/SGPT 45 U/L (12-78); AST/SGOT 38 U/L (15-37); Alkaline Phosphatase 408 U/L (45-117); BUN Blood Urea Nitrogen 23 mg/dL (7-18); Bicarbonate 18 mmol/L (21-32); Bilirubin Direct 0.4 mg/dL (0-0.2); Bilirubin Total 1.1 mg/dL (0.2-1.0); CKMB Creatine Kinase MB < 1.0 ng/mL (0.3-3.6); Creatine Phosphokinase 95 U/L (39-308); Glucose Level 96 mg/dL (74-106); Lipase 121 U/L (73-393); Potassium 4.1 mmol/L (3.5-5.1); Protein, Total 5.2 g/dL (6.4-8.2); Sodium Level 141 mmol/L (136-145); Troponin (Emerg Dept Use Only) < 0.02 ng/mL (0.0-0.045)
[2019-07-05 21:47] LABS: Blood Morphology Comment NOTED (NOT SEEN); Elliptocytes 1+; Platelet Estimate ADEQ; Poikilocytosis 1+; Teardrop Cell 1+
--- NOTE | 2019-07-05 22:28 | EDPHYS ---
Physician Documentation [facility] Name: Joel Desouza Age: 63 yrs Sex: Male : 1955 Arrival Date: 07/05/2019 Time: 20:15 Bed 27 Private MD: ED Physician Maykel Burton HPI: 07/05 20:39 This 63 yrs old Male presents to ER via Ambulatory with complaints of Fever. cp 20:39 The patient reports fever, that was measured at 102 degrees Fahrenheit. cp 20:39 Onset: The symptoms/episode began/occurred today. Associated signs and symptoms: cp Pertinent positives: chills, Pertinent negatives: abdominal pain, altered mental status, chest pain, cough, diarrhea, headache, vomiting. Severity of symptoms: in the emergency department the symptoms are unchanged despite home interventions. Patient reports PMHX of bilateral lung transplant in 2012, liver cirrhosis, and Common Variable Immune Disorder. Historical: - Allergies: 20:36 No Known Allergies; ca1 - Home Meds: 22:58 Metoprolol Tartrate Oral [Active]; Omeprazole Oral [Active]; Prednisone 4 mg Oral mg2 [Active]; tocophersolan Oral [Active]; Folic Acid Oral [Active]; antidiarrheal [Active]; tacrolimus oral oral [Active]; - PMHx: 20:36 Cirrhosis; CVID - Common Variable Immune Disorder; ca1 - PSHx: 20:36 Lung transplant; ca1 20:36 Appendectomy; ca1 - Immunization history:: Adult Immunizations up to date, Pneumococcal vaccine is up to date, Flu vaccine is up to date. - Social history:: Smoking status: Patient/guardian denies using tobacco. - Ebola Screening: : Patient negative for fever greater than or equal to 101.5 degrees Fahrenheit, and additional compatible Ebola Virus Disease symptoms Patient denies exposure to infectious person Patient denies travel to an Ebola-affected area in the 21 days before illness onset No symptoms or risks identified at this time. ROS: 20:45 Constitutional: Positive for chills, fever, Negative for body aches, poor PO intake. cp 20:45 Eyes: Negative for injury, pain, redness, and discharge. cp 20:45 ENT: Negative for drainage from ear(s), ear pain, sore throat, difficulty swallowing, difficulty handling secretions. 20:45 Cardiovascular: Negative for chest pain, palpitations. 20:45 Respiratory: Negative for cough, shortness of breath, wheezing. 20:45 Abdomen/GI: Positive for abdominal distension, Negative for abdominal pain, nausea, vomiting, and diarrhea, black/tarry stool, rectal bleeding. 20:45 Back: Negative for pain at rest, pain with movement. 20:45 : Negative for urinary symptoms. 20:45 Skin: Negative for cellulitis, rash. 20:45 Neuro: Negative for altered mental status, headache, weakness. 20:45 All other systems are negative. Exam: 20:52 Constitutional: The patient appears in no acute distress, alert, awake, cp non-diaphoretic, non-toxic, well developed, well nourished. 20:52 Head/Face: Normocephalic, atraumatic. cp 20:52 Eyes: Periorbital structures: appear normal, Conjunctiva: normal, no exudate, no injection, Sclera: no appreciated abnormality, Lids and lashes: appear normal, bilaterally. 20:52 ENT: External ear(s): are unremarkable, Ear canal(s): are normal, clear, TM's: dullness, bilaterally, Nose: is normal, Mouth: Lips: moist, Oral mucosa: pink and intact, moist, Posterior pharynx: Airway: no evidence of obstruction, patent, Tonsils: are normal in appearance, erythema, is not appreciated, exudate, is not appreciated. 20:52 Neck: ROM/movement: Meningeal signs: are not present, nuchal rigidity, is not appreciated. 20:52 Chest/axilla: Inspection: normal, Palpation: is normal, no crepitus, no tenderness. 20:52 Cardiovascular: Rate: tachycardic, Rhythm: regular, Edema: is not appreciated, JVD: is not appreciated. 20:52 Respiratory: the patient does not display signs of respiratory distress, Respirations: normal, no use of accessory muscles, no retractions, no splinting, no tachypnea, Breath sounds: decreased breath sounds, that are mild, are located in both bases, rhonchi, that are mild, are heard in the left posterior lower lobe, wheezing: is not appreciated. 20:52 Abdomen/GI: Inspection: distension, that is moderate, in the abdomen diffusely, Bowel sounds: active, all quadrants, Palpation: soft, in all quadrants, mild abdominal tenderness, in all quadrants, rebound tenderness, is not appreciated, voluntary guarding, is not appreciated, involuntary guarding, is not appreciated. 20:52 Back: pain, is absent, ROM is normal. 20:52 Skin: no rash present. 20:52 Neuro: Orientation: to person, place \T\ time. Mentation: is normal, Motor: moves all fours, strength is normal. 21:09 ECG was reviewed by the Attending Physician. cp Vital Signs: 20:36 BP 135 / 85; Pulse 110; Resp 18 S; Temp 101.4(O); Pulse Ox 98% on R/A; Weight 51.71 kg ca1 (R); Height 5 ft. 3 in. (160.02 cm); Pain 7/10; 22:33 BP 117 / 75; Pulse 92; Resp 18; Temp 99.3; Pulse Ox 100% on R/A; mg2 22:56 BP 116 / 73; Pulse 88; Resp 18; Temp 99.3; Pulse Ox 100% on R/A; mg2 20:36 Body Mass Index 20.19 (51.71 kg, 160.02 cm) ca1 MDM: 20:31 Patient medically screened. [place] 20:45 Differential diagnosis: viral Infection, bacterial infection, pneumonia UTI, cp meningitis, sepsis. 22:09 Data reviewed: vital signs, nurses notes, lab test result(s), EKG, radiologic studies, cp plain films. 22:09 Test interpretation: by ED physician or midlevel provider: ECG, plain radiologic cp studies, chest xray shows opacity left lower lung. Counseling: I had a detailed discussion with the patient and/or guardian regarding: the historical points, exam findings, and any diagnostic results supporting the discharge/admit diagnosis, lab results, radiology results, the need to transfer to another facility, for higher level of care. 22:12 Physician consultation: DR Cordero \T\[facility], discussed cp patient's condition and approved transfer for continued care. 07/05 20:27 Order name: Basic Metabolic Panel; Complete Time: 21:48 mg2 07/05 21:48 Interpretation: Normal except: CL 115; CO2 18; BUN 23; CRE 1.62; GFR 44. cp 07/05 20:27 Order name: Blood Culture Adult (2) mg2 07/05 20:27 Order name: CBC with Diff; Complete Time: 21:49 mg2 07/05 21:33 Interpretation: Normal except: RBC 3.38; HGB 10.4; HCT 30.4; PLT 108; RDW 17.9; JESSICA% cp 91.0; LYM% 4.8; MN% 3.1; NEUT A 8.9; LYMA 0.5. 07/05 20:27 Order name: Ckmb; Complete Time: 21:48 mg2 07/05 20:27 Order name: CPK; Complete Time: 21:48 mg2 07/05 20:27 Order name: Lactate; Complete Time: 21:48 mg2 07/05 20:27 Order name: LFT's; Complete Time: 21:48 mg2 07/05 20:27 Order name: Lipase; Complete Time: 21:48 mg2 07/05 20:27 Order name: Procalcitonin; Complete Time: 22:09 mg2 07/05 20:27 Order name: Protime (+inr); Complete Time: 21:48 mg2 07/05 20:27 Order name: Ptt, Activated; Complete Time: 21:48 mg2 07/05 20:27 Order name: Troponin (emerg Dept Use Only); Complete Time: 21:48 mg2 07/05 20:27 Order name: Chest Single View XRAY; Complete Time: 21:32 mg2 07/05 21:33 Interpretation: Report review. cp 07/05 20:27 Order name: Accucheck; Complete Time: 21:16 mg2 07/05 20:27 Order name: Cardiac monitoring; Complete Time: 21:52 mg2 07/05 20:27 Order name: EKG - Nurse/Tech; Complete Time: 21:52 mg2 07/05 20:27 Order name: IV Saline Lock - Large Bore; Complete Time: 21:52 mg2 07/05 20:27 Order name: Labs collected and sent; Complete Time: 21:52 mg2 07/05 20:27 Order name: O2 Per Protocol; Complete Time: 21:52 mg2 07/05 20:27 Order name: O2 Sat Monitoring; Complete Time: 21:52 mg2 07/05 20:33 Order name: Influenza Screen (a \T\ B); Complete Time: 21:48 cp 07/05 21:27 Order name: Glucose, Ancillary Testing; Complete Time: 21:32 EDMS 07/05 21:48 Order name: Manual Differential; Complete Time: 21:49 EDMS 07/05 21:49 Interpretation: Normal except: SEGS 86; BANDS [F] 5; LYM 7. cp 07/05 21:49 Order name: PO challenge: crackers and juice ok; Complete Time: 22:32 cp 07/05 22:14 Order name: Vital Signs: update to include temp; Complete Time: 22:36 cp EC:09 Rate is 100 beats/min. Rhythm is regular. WA interval is normal. QRS interval is cp normal. QT interval is normal. T waves are Inverted in leads V3, V4, V5, V6. Interpreted by me. Reviewed by me. Administered Medications: 21:10 Drug: Cefepime 2 grams Route: IVPB; Rate: 200 ml/hr; Infused Over: 30 mins; Site: right mg2 antecubital; 23:33 Follow up: Response: No adverse reaction; IV Status: Completed infusion mg2 21:12 CANCELLED (Physician Discretion): Cefepime 1 grams IVPB at 200 ml/hr once over 30 mins; cp (mix in NS 100 mL) 21:16 Drug: Ibuprofen 600 mg Route: PO; mg2 23:34 Follow up: Response: No adverse reaction; Temperature is decreased mg2 21:18 Drug: NS 0.9% (30 ml/kg) 30 ml/kg Route: IV; Rate: bolus; Site: right antecubital; mg2 23:35 Follow up: Response: No adverse reaction; IV Status: Completed infusion; IV Intake: mg2 1500ml 22:23 Drug: vancoMYCIN 1 grams Route: IVPB; Infused Over: 2 hrs; Site: right antecubital; mg2 23:35 Follow up: Response: No adverse reaction; IV Status: Infusion continued upon transfer mg2 Disposition: 07/06 09:46 Co-signature as Attending Physician, Maykel Burton MD I agree with the assessment and [facility] plan of care. Disposition: 07/05/19 22:24 Transfer ordered to [facility]. Diagnosis is Pneumonia due to other specified bacteria. - Reason for transfer: Higher level of care. - Accepting physician is DR Galaviz. - Condition is Stable. - Problem is new. - Symptoms have improved. Signatures: Dispatcher [employer] EDNH Maykel Burton MD MD cha Page, Corey, PA PA cp Gardose, Michele, RN RN mg2 Acob, Barbi, RN RN ca1 Corrections: (The following items were deleted from the chart) 07/05 21:12 20:33 Cefepime 1 grams IVPB at 200 ml/hr once over 30 mins; (mix in NS 100 mL) ordered. cp cp 23:41 22:24 07/05/2019 22:24 Transfer ordered to [facility]. Diagnosis is mg2 Pneumonia due to other specified bacteria. Reason for transfer: Higher level of care. Accepting physician is DR Galaviz. Condition is Stable. Problem is new. Symptoms have improved. cp
--- NOTE | 2019-07-05 22:28 | ER ---
Nurse's Notes [facility] Name: Joel Desouza Age: 63 yrs Sex: Male : 1955 Arrival Date: 07/05/2019 Time: 20:15 Bed 27 Private MD: Diagnosis: Pneumonia due to other specified bacteria Presentation: 07/05 20:31 Presenting complaint: Patient states: "I have a fever of 102.2 today. 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 Pt also reports Stage 4 Liver Cirrhosis and regular paracentesis. Transition of care: patient was not received from another setting of care. Onset of symptoms was July 05, 2019. Risk Assessment: Do you want to hurt yourself or someone else? Patient reports no desire to harm self or others. Initial Sepsis Screen: Does the patient meet any 2 criteria? Temp <36.0*C (96.8*F)) or > 38.3*C (100.9*F). HR > 90 bpm. Yes Does the patient have a suspected source of infection? Yes: Other: pt on immunosuppressants. Care prior to arrival: None. 20:31 Method Of Arrival: Ambulatory ca1 20:31 Acuity: TESSIE 2 ca1 Triage Assessment: 23:00 General: Behavior is calm, cooperative. mg2 Historical: - Allergies: 20:36 No Known Allergies; ca1 - Home Meds: 22:58 Metoprolol Tartrate Oral [Active]; Omeprazole Oral [Active]; Prednisone 4 mg Oral mg2 [Active]; tocophersolan Oral [Active]; Folic Acid Oral [Active]; antidiarrheal [Active]; tacrolimus oral oral [Active]; - PMHx: 20:36 Cirrhosis; CVID - Common Variable Immune Disorder; ca1 - PSHx: 20:36 Lung transplant; ca1 20:36 Appendectomy; ca1 - Immunization history:: Adult Immunizations up to date, Pneumococcal vaccine is up to date, Flu vaccine is up to date. - Social history:: Smoking status: Patient/guardian denies using tobacco. - Ebola Screening: : Patient negative for fever greater than or equal to 101.5 degrees Fahrenheit, and additional compatible Ebola Virus Disease symptoms Patient denies exposure to infectious person Patient denies travel to an Ebola-affected area in the 21 days before illness onset No symptoms or risks identified at this time. Screenin:55 Abuse screen: Denies threats or abuse. Denies injuries from another. Nutritional mg2 screening: No deficits noted. Tuberculosis screening: No symptoms or risk factors identified. Fall Risk IV access (20 points). Assessment: 22:00 General: Appears in no apparent distress. comfortable. Pain: Complains of pain in mg2 abdomen. Neuro: Level of Consciousness is awake, alert, obeys commands, Oriented to person, place, time, situation. Cardiovascular: Capillary refill < 3 seconds Patient's skin is warm and dry. Respiratory: Airway is patent Respiratory effort is even, unlabored, Respiratory pattern is regular, symmetrical. GI: Abdomen is distended, noted to have ascites, Reports lower abdominal pain, upper abdominal pain, diarrhea. : No signs and/or symptoms were reported regarding the genitourinary system. EENT: No signs and/or symptoms were reported regarding the EENT system. Derm: Skin is intact, is healthy with good turgor, Skin is pink, warm \\T\\ dry. normal. Musculoskeletal: Circulation, motion, and sensation intact. Capillary refill < 3 seconds. 22:59 Reassessment: report given to DELISA Irizarry of [facility]. mg2 23:15 Reassessment: Patient appears in no apparent distress at this time. Patient and/or mg2 family updated on plan of care and expected duration. Pain level reassessed. Patient is alert, oriented x 3, equal unlabored respirations, skin warm/dry/pink. 23:37 Reassessment: report given to EMS, patient in good condition, AOx4, IV intact, t mg2 with IV Vancomycin ongoing. Vital Signs: 20:36 BP 135 / 85; Pulse 110; Resp 18 S; Temp 101.4(O); Pulse Ox 98% on R/A; Weight 51.71 kg ca1 (R); Height 5 ft. 3 in. (160.02 cm); Pain 7/10; 22:33 BP 117 / 75; Pulse 92; Resp 18; Temp 99.3; Pulse Ox 100% on R/A; mg2 22:56 BP 116 / 73; Pulse 88; Resp 18; Temp 99.3; Pulse Ox 100% on R/A; mg2 20:36 Body Mass Index 20.19 (51.71 kg, 160.02 cm) ca1 ED Course: 20:15 Patient arrived in ED. cl3 20:26 Yaya Navarrete, DELISA is Primary Nurse. mg2 20:31 Maykel Weinstein PA is PHCP. cp 20:31 Maykel Burton MD is Attending Physician. cp 20:35 Triage completed. ca1 20:36 Arm band placed on right wrist. ca1 21:00 Inserted saline lock: 20 gauge in right antecubital area, using aseptic technique. mg2 Blood collected. 21:00 First set of blood cultures drawn. mg2 21:10 Chest Single View XRAY In Process Unspecified. EDMS 22:56 Patient has correct armband on for positive identification. electronic device monitor on. Pulse mg2 ox on. NIBP on. Door closed. 22:56 No provider procedures requiring assistance completed. mg2 23:36 Patient transferred, IV remains in place. mg2 Administered Medications: 21:10 Drug: Cefepime 2 grams Route: IVPB; Rate: 200 ml/hr; Infused Over: 30 mins; Site: right mg2 antecubital; 23:33 Follow up: Response: No adverse reaction; IV Status: Completed infusion mg2 21:12 CANCELLED (Physician Discretion): Cefepime 1 grams IVPB at 200 ml/hr once over 30 mins; cp (mix in NS 100 mL) 21:16 Drug: Ibuprofen 600 mg Route: PO; mg2 23:34 Follow up: Response: No adverse reaction; Temperature is decreased mg2 21:18 Drug: NS 0.9% (30 ml/kg) 30 ml/kg Route: IV; Rate: bolus; Site: right antecubital; mg2 23:35 Follow up: Response: No adverse reaction; IV Status: Completed infusion; IV Intake: mg2 1500ml 22:23 Drug: vancoMYCIN 1 grams Route: IVPB; Infused Over: 2 hrs; Site: right antecubital; mg2 23:35 Follow up: Response: No adverse reaction; IV Status: Infusion continued upon transfer mg2 Intake: 23:35 IV: 1500ml; Total: 1500ml. mg2 Outcome: 22:24 ER care complete, transfer ordered by . cp 23:40 Transferred by ground EMS to [facility], Transfer form completed. mg2 23:40 Condition: stable 23:40 Instructed on the need for transfer, Demonstrated understanding of instructions. 23:41 Patient left the ED. mg2 Signatures: Dispatcher [employer] EDMS Maykel Weinstein PA PA cp Gardose, Michele, RN RN mg2 Barbi Bailey RN RN ca1 Joce Shipley cl3 Corrections: (The following items were deleted from the chart) 20:37 20:31 Presenting complaint: Patient states: "I have a fever of 102.2 today. I am ca1 Bilateral lung transplant pt and on immunosuppressants so every time i get a temperature I should be in the ER" Denies cough and congestion, abdominal pain, diarrhea. Pt also reports Stage 4 Liver Cirrhosis and regular paracentesis. ca1
[2019-07-05 23:57] VITALS: TEMP 99.3; O2SAT 100
[2019-07-05 23:59] VITALS: BP 116/73
--- NOTE | 2019-07-06 09:24 | EKG ---
Test Date: 2019-07-05 Test Time: 20:47:55 Manager Cath Lab: [facility] MEASUREMENT RESULTS: Intervals: Rate: 100 CO: 116 QRSD: 76 QT: 332 QTc: 428 [place]: P: 9 CO: 116 QRS: 37 T: -72 INTERPRETIVE STATEMENTS: Normal sinus rhythm ST & T wave abnormality, consider anterolateral ischemia Abnormal ECG Compared to ECG 04/21/2019 23:02:06 ST (T wave) deviation now present Possible ischemia now present Myocardial infarct finding no longer present Electronically Signed On 07-06-19 09:23:35 FRAMING INSPECTOR by Tahir Israel
== END 2019-07-05 23:41 | disposition short-term general hospital (02) ==
LOC: ER 20:13
DX: J15.8 Pneumonia due to other specified bacteria (principal); K74.60 Unspecified cirrhosis of liver; Z94.2 Lung transplant status
CPT/HCPCS: 96365; 96361; 96368; 93005; 87040 ×2; 85025; 80048; 36415; 82550; 85610; 82947; 80076; 83605; 85730; 84484; 82553; 83690; 84145; 87804 ×2; 71045; 99285; 96366; J0692 ×2; J7030 ×3; J7040; 96367

== ENCOUNTER 2020-06-07 16:27 | Emergency (ER) | payer OTHER ==
[2020-06-07 17:30] LABS: Absolute Lymphocytes (CBC) 0.5 K/uL (0.7-4.9); Basophils % 1.4 % (0-1.3); Hematocrit 19.9 % (39.6-49.0); Lymphocytes % 17.2 % (15.3-44.8); MPV 8.6 fL (7.6-11.3); RBC Red Blood Cell Count 2.08 M/uL (4.33-5.43)
[2020-06-07 17:52] LABS: Albumin 2.3 g/dL (3.4-5.0); Bilirubin Total 2.2 mg/dL (0.2-1.0); Protein, Total 3.8 g/dL (6.4-8.2)
[2020-06-07 18:04] LABS: Blood Morphology Comment NOT SEEN (NOT SEEN); Platelet Estimate DECR; White Blood Cell Scan OK (OK)
[2020-06-07] MEDS ORDERED: NA CHLORIDE 0.9% 100 ML ONE (18:35)
--- OUTSIDE RECORDS SUMMARY | 2020-06-07 18:51 | XMS REPORT | Clinical Summary ---
:1955 Author Organization [facility] Address [address] [place] [address] Care Team Providers Name Role Phone Ez Rodriguez RN Registered Nurse Unavailable Ramiro Centeno MD Primary Care Provider Allergies No Known Allergies Medications Medication Sig Dispensed Refills Start End Date Status Date multivitamin capsule Take 1 0 Active capsule by mouth daily. folic acid (FOLVITE) Take 1 mg by 0 Active 1 MG tablet mouth daily. simethicone Take 1 30 tablet 3 Active (MYLICON) 80 MG tablet (80 0 chewable tablet mg total) by mouth every 6 (six) hours as needed (flatulence or gas). omeprazole Take 2 120 capsule 2 Active (PRILOSEC) 20 MG capsules (40 0 capsule mg total) by mouth 2 (two) times daily. rifAXIMin 550 mg Tab Take 1 60 tablet 2 Active tablet (550 0 mg total) by mouth 2 (two) times daily. predniSONE Take 4 360 tablet 3 Active (DELTASONE) 1 MG tablets (4 0 tabletIndications: mg total) by S/P lung transplant mouth daily. (HCC) gabapentin Take 1 30 capsule 0 Active (NEURONTIN) 100 MG capsule (100 0 capsuleIndications: mg total) by Itching mouth nightly. tacrolimus (PROGRAF) Take 1 30 capsule 3 02/26/20 Active 0.5 MG capsule capsule (0.5 0 21 mg total) by mouth daily Starting 02/26. ergocalciferol Take 1 6 capsule 0 03/03/20 Activ e (ERGOCALCIFEROL) capsule 0 21 1,250 mcg (50,000 (50,000 unit) capsule Units total) by mouth once a week Every . AZITHROmycin Take 1 36 tablet 3 Active (ZITHROMAX) 250 MG tablet (250 0 tablet mg total) by mouth 3 (three) times a week MON/SAT/SAT Take by mouth as directed.. ondansetron (ZOFRAN) Take 4 mg by 0 Active 4 MG tablet mouth 3 0 (three) times daily as needed . gabapentin Take 3 30 capsule 1 Active (NEURONTIN) 100 MG capsules 0 capsuleIndications: (300 mg Itching total) by mouth every night as needed. sevelamer (RENVELA) Take 1 90 tablet 11 05/01/20 Active 800 mg tablet tablet (800 0 21 mg total) by mouth 3 (three) times daily with meals. sodium bicarbonate Take 2 180 tablet 11 05/01/20 Active 650 MG tablet tablets 0 21 (1,300 mg total) by mouth 3 (three) times daily. lactulose Take 30 mLs 2700 mL 1 Active (CHRONULAC) 20 (20 g total) 0 gram/30 mL solution by mouth 3 (three) times daily Take up to three times daily for a goal of 2-3 bowel movement per day. calcitrioL Take 1 30 capsule 1 05/01/20 Active (ROCALTROL) 0.25 MCG capsule 0 21 capsule (0.25 mcg total) by mouth daily For kidney disease. inuylo-iarpwcdf-zugi Take 2 tabs 180 capsule 11 Active ase (CREON) po with 0 36,000-114,000- meals. 180,000 unit CpDR capsule omeprazole Take 40 mg 0 07/30/19 Disconti nued (PRILOSEC) 20 MG by mouth 20 (Re order) capsule daily . propranolol Take 10 mg 0 07/08/19 Discont inued (INDERAL) 10 MG by mouth 20 (Sto p Taking at tablet daily. Discharge) lactobacillus Take 1 30 capsule 6 08/17/19 Disco ntinued rhamnosus, GG, capsule by 9 20 (Err or) (CULTURELLE) 10 mouth daily. billion cell capsuleIndications: Diarrhea, unspecified type predniSONE TAKE FOUR 90 tablet 1 08/31/19 Discontin ued (DELTASONE) 1 MG TABLETS BY 9 20 (R eorder) tabletIndications: MOUTH DAILY S/P lung transplant ([facility]) azithromycin Take 1 12 tablet 6 02/05/20 Discont inued (ZITHROMAX) 250 MG tablet (250 9 20 tabletIndications: mg total) by Lung transplanted mouth 3 ([facility]) (three) times a week EVERY SATURDAY, SATURDAY, AND SATURDAY. midodrine Take 1 90 tablet 6 02/05/20 Discontinu ed (PROAMATINE) 5 MG tablet (5 mg 9 20 tablet total) by mouth 3 (three) times daily. fludrocortisone Take 0.5 15 tablet 11 07/08/19 Disc ontinued (FLORINEF) 0.1 mg tablets 9 20 (R eorder) tabletIndications: (0.05 mg Hyperkalemia total) by mouth daily. mmgxbc-suwgerpk-iwix Take 2 tabs 180 capsule 11 05/16 Discontinued ase (CREON) po with 9 20 (Reorder ) 36,000-114,000- meals. 180,000 unit CpDR capsule tacrolimus (PROGRAF) Take 1 30 capsule 11 07/30/19 Discontinued 0.5 MG capsule capsule (0.5 9 20 (R eorder) mg total) by mouth Daily (0600). levoFLOXacin Take 2 tabs 9 tablet 0 07/08/19 Disco ntinued (LEVAQUIN) 250 MG (500 mg) day 9 20 (Reorder) tabletIndications: 1, then 1 Fever, unspecified tab daily fever cause for 1 week.. fludrocortisone Take 1 30 tablet 3 02/05/20 Disc ontinued (MD (FLORINEF) 0.1 mg tablet (0.1 0 20 Discontinued) tabletIndications: mg total) by Hyperkalemia mouth daily. levoFLOXacin Take 1 7 tablet 0 07/15/19 (LEVAQUIN) 500 MG tablet (500 0 20 tabletIndications: mg total) by Fever, unspecified mouth daily fever cause for 7 days. omeprazole Take 2 120 capsule 1 07/30/19 Discont inued (PRILOSEC) 20 MG capsules (40 0 20 (Reorder) capsule mg total) by mouth 2 (two) times daily. tacrolimus (PROGRAF) Take 1 60 capsule 1 08/26/19 Discontinued 0.5 MG capsule capsule (0.5 0 20 (S top Taking at mg total) by Dischar ge) mouth 2 (two) times daily. sucralfate Take 10 mLs 800 mL 1 08/29/19 (CARAFATE) 100 mg/mL (1 g total) 0 20 suspension by mouth every 6 (six) hours for 30 days. cefdinir (OMNICEF) Take 1 4 capsule 0 08/01/19 E xpired 300 MG capsule capsule (300 0 20 mg total) by mouth 2 (two) times daily for 2 days. tacrolimus (PROGRAF) Take 1 30 capsule 3 02/26/20 Discontinued 0.5 MG capsule capsule (0.5 0 20 (R eorder) mg total) by mouth 3 (three) times a week MON/WED/FRI. tacrolimus (PROGRAF) Take 1 30 capsule 6 12/11/19 Discontinued 0.5 MG capsule capsule (0.5 0 20 (R eorder) mg total) by mouth Daily (0600). predniSONE Take 4 360 tablet 3 09/03/19 Disconti nued (DELTASONE) 1 MG tablets (4 0 20 (R eorder) tabletIndications: mg total) by S/P lung transplant mouth daily. (HCC) furosemide (LASIX) Take 1 90 tablet 1 12/11/19 D iscontinued 20 MG tablet (20 0 20 (Reorder) tabletIndications: mg total) by Other ascites mouth daily for 180 days. spironolactone Take 1 60 tablet 2 12/11/19 Disco ntinued (ALDACTONE) 50 MG tablet (50 0 20 ( Reorder) tabletIndications: mg total) by Other ascites mouth daily for 180 days. hydrOXYzine (ATARAX) Take 1 10 tablet 0 09/30/19 25 MG tablet (25 0 20 tabletIndications: mg total) by Itching mouth once in morning for 1 dose. gabapentin Take 1 60 capsule 0 02/16/20 Disconti nued (NEURONTIN) 300 MG capsule (300 0 20 (Reorder) capsuleIndications: mg total) by Itching mouth once at bedtime. furosemide (LASIX) Take 1 90 tablet 1 02/26/20 D iscontinued 20 MG tablet (20 0 20 (Stop Darrick ing at tabletIndications: mg total) by Discharge) Other ascites mouth daily for 180 days. spironolactone Take 1 60 tablet 1 02/05/20 Disco ntinued (ALDACTONE) 50 MG tablet (50 0 20 tabletIndications: mg total) by Other ascites mouth daily for 180 days. tacrolimus (PROGRAF) Take 1 30 capsule 6 02/26/20 Discontinued 0.5 MG capsule capsule (0.5 0 20 (S top Taking at mg total) by Dischar ge) mouth Daily (0600) On , , Sat, Sat. sodium polystyrene Take 60 mLs 60 mL 0 01/28/20 (KAYEXALATE) 15 (15 g total) 0 20 gram/60 mL by mouth suspensionIndication once for 1 s: Hyperkalemia dose. citric acid-sodium Take 30 mLs 473 mL 6 02/26/20 Discontinued citrate (BICITRA) by mouth 3 0 20 ( Stop Taking at 500-334 mg/5 mL (three) Disc harge) solution times daily with meals for 30 days. sodium polystyrene Take 120 mLs 120 mL 3 02/05/20 (KAYEXALATE) 15 (30 g total) 0 20 gram/60 mL by mouth suspension once for 1 dose. spironolactone Hold per 60 tablet 1 02/26/20 Disco ntinued (ALDACTONE) 50 MG liver team. 0 20 (Stop Taking at tabletIndications: D ischarge) Other ascites midodrine Patient 90 tablet 6 02/26/20 Discontinu ed (PROAMATINE) 5 MG states he is 0 20 (Stop Taking at tablet not taking. Discharg e) gabapentin Take 1 60 capsule 0 02/26/20 Disconti nued (NEURONTIN) 300 MG capsule (300 0 20 (Reorder) capsuleIndications: mg total) by Itching mouth once at bedtime. lactulose Take 30 mLs 2700 mL 0 05/01/20 Disconti nued (CHRONULAC) 20 (20 g total) 0 20 (R eorder) gram/30 mL solution by mouth 3 (three) times daily Take up to three times daily for a goal of 2-3 bowel movement per day. calcitrioL Take 1 30 capsule 0 05/01/20 Disconti nued (ROCALTROL) 0.25 MCG capsule 0 20 (Reorder) capsule (0.25 mcg total) by mouth daily For kidney disease. furosemide (LASIX) Take 1 90 tablet 0 03/30/20 D iscontinued 40 MG tablet tablet (40 0 20 (Reord er) mg total) by mouth 3 (three) times daily. AZITHROmycin Take 1 36 tablet 3 03/29/20 Discont inued (ZITHROMAX) 250 MG tablet (250 0 20 (Reorder) tablet mg total) by mouth 3 (three) times a week MON/WED/FRI Take by mouth as directed.. furosemide (LASIX) Take 1 90 tablet 1 05/01/20 D iscontinued 40 MG tablet (40 0 20 (Stop Darrick ing at tabletIndications: mg total) by Discharge) Hypervolemia, mouth daily unspecified as needed. hypervolemia type Hospital, Clinic, or Other Ordered Dose Route Frequency Start Date End Date Status Facility Administered Medication diphenhydrAMINE (BENADRYL) 25 mg IV Once 12/01/2019 Ended injection 25 mg diphenhydrAMINE (BENADRYL) 25 mg IV Once 01/26/2020 Ended injection 25 mg Active Problems Problem Noted Date CKD (chronic kidney disease) 04/06/2020 Last Assessment & Plan: He has CKD and does not currently requir e dialysis but has required it in the past. He will continue follow up with nephrolo gy. Impaired ambulation 04/06/2020 Last Assessment & Plan: He will benefit from home physical thera py. He states that he has issues with his ambulation while ambulating at home. Drug use 04/06/2020 Last Assessment & Plan: He states that he consumes "marijuana gu mmies" for anxiety. He was instructed to abstain from consuming marijuana contain ing treats. Pre-transplant evaluation for liver transplant 020 Last Assessment & Plan: He will be considered a high risk candid ate due to his social history s/p lung transplant. He will require routine imag ing/testing and official review at [facility] for official candidacy. Volume overload 02/23/2020 NOHEMI (acute kidney injury) 02/23/2020 Dyspnea and respiratory abnormality 12/10/2019 Portal hypertension 11/05/2019 Last Assessment & Plan: Portal hypertension with evidence by asc ites (s/p TIPs), varices and splenomegaly. S/P TIPS (transjugular intrahepatic portosystemic shun t) 08/31/2019 Scrotal swelling 08/23/2019 Esophageal ulcer 07/29/2019 Sarcopenia 05/07/2019 Hypotension due to drugs 05/07/2019 Chest discomfort 04/22/2019 Other cirrhosis of liver 12/05/2018 Last Assessment & Plan: His liver biopsy in August indicated fibrosis stage 4 of 4, consistent with cirrhosis. 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 He will continue follow up with pulmonary. Bronchiectasis 05/07/2012 GERD (gastroesophageal reflux disease) 05/07/2012 CVID (common variable immunodeficiency) 05/07/2012 COPD (chronic obstructive pulmonary disease) 2 Acute respiratory distress Cardiac arrest Resolved Problems Problem Noted Date Resolved Date Cirrhosis 07/29/2019 11/05/2019 Septic shock 12/28/2017 03/12/2020 Transaminitis 12/28/2017 09/18/2019 Severe sepsis 12/27/2017 03/12/2020 S/P lung transplant 03/11/2015 11/05/2019 Lung transplanted 03/09/2015 09/18/2019 Nausea & vomiting 04/27/2014 03/12/2020 Encounters Date Type Specialty Care Team Description Documentation Hepatology Jos Skinner 0 Spring, RN IMCU Orders Only Hepatology Jos Skinner Other ascites 0 Spring, RN IMCU (Primary Dx) Documentation Transplant Hepatology Shaista Ellington 0 Office Visit Hepatology Amari Carlton Other cirrho sis of liver (HCC) (Primary Dx); 0 MD Robert Portal hyperten shar (HCC); S/P TIPS (trans jugular intrahepatic portosystemic shunt); Double Lung Tra nsplant; Stage 5 chronic kidney disease not on chronic dialysis (HCC) Telephone Transplant Hepatology Karlie Juarez Appo intment 0 Telephone Transplant Hepatology Karlie Juarez Resu lts of testing 0 Abstract Transplant Analisa Wallis 0 Y, RN Telephone Transplant Augusta Rodriguez Medication R efill 0 C, RN Telephone Transplant Hepatology Karlie Juarez Cert ified Letter 0 Documentation Transplant Hepatology Shaista Ellington 0 Documentation Transplant Hepatology Salima Valentin 0 R, RN Documentation Transplant July Macias 0 Telephone Transplant July Macias Appointment (Called 0 pt to schedule post MRB recommendat ions (lab), pt asked if he can do it at [facility] in [place] , nurse coordinat or said yes and sh e put in lab orders f or pt to have labs do ne 05/13/2020. Pt aware. ) Orders Only Transplant Analisa Wallis Pre-transplan t evaluation for chronic kidney disease (Primary Dx); 0 Y, RN NOHEMI (acute kidn ey injury) (HCC); Immunosuppressi on (HCC) Telephone Transplant Hepatology Ayala Rodriguez Foll ow-up 0 RN Documentation Transplant Hepatology Shaista Ellington 0 Telephone Transplant Hepatology Salima Valentin ow-up 0 R, RN Documentation Transplant [place], [place], Pre-transpla nt evaluation for chronic kidney disease (Primary Dx); 0 RN Abnormal blood chemistry Telephone Transplant [place], [place], Committee Rev iew 0 RN Documentation Transplant Hepatology Karlie Juarez 0 Social Work Transplant Hepatology Tahir, 0 RAMA LopezW Documentation Transplant Hepatology Karlie Juarez 0 Telephone Transplant [place], [place], 0 RN Telephone Transplant Cori Renee referrals fo r 0 T, TIME CYCLE OPERATOR providers Documentation Transplant [place], [place], 0 RN Documentation Transplant [place], [place], 0 RN Documentation Transplant [place], [place], Acute kidney injury 0 RN (nontraumatic) (HCC) Documentation Transplant Hepatology Salima Valentin 0 R, RN Social Work Transplant Hepatology Tahir, 0 Shdarlinribetty, TIME CYCLE OPERATOR Documentation Transplant DavilaReina friedman 0 Documentation Transplant [place], [place], 0 RN Telephone Transplant Hepatology Ayala Rodriguez Foll ow-up 0 RN Surgery Ivette, R & L CATH / CO RONARY 0 MD Vahid ANGIOS (+/- LV) Documentation Transplant Lisa Jung, 0 RN Travel 0 Documentation Transplant Hepatology Shaista Ellington 0 Documentation Transplant Hepatology Jana Tucker 0 Social Work Transplant Hepatology Tahir, 0 ShJEREMIAS matos Hospital Encounter Cardiology MarvinVahid kaufman, NOHEMI ( acute kidney injury) (HCC) (Primary Dx); 0 - MD Hypervolemia, unspecified hypervolemia t ype; [place] Sage Other fatigue; 0 MD Bryan Generalized wea kness; Metabolic acido sis; Stage 5 chronic kidney disease not on chronic dialysis (HCC); Lung transplant status, bilateral (HCC); Other cirrhosis of liver (HCC); S/P TIPS (trans jugular intrahepatic portosystemic shunt); Uremic acidosis ; Anemia due to s tage 5 chronic kidney disease, not on chronic dialysis (HCC); Decompensated h epatic cirrhosis (HCC); Portal hyperten shar (HCC); Other ascites; Portal hyperten sive gastropathy (HCC); Hepatic encepha lopathy (HCC); Chronic kidney disease, unspecified CKD stage; Esophageal vari mark without bleeding, unspecified esophageal varices type (HCC); Screening for m alignant neoplasm; Pre-transplant evaluation for liver transplant; Encounter for p re-operative cardiovascular clearance; Pre-transplant evaluation for chronic kidney disease; CKD (chronic ki dney disease) stage 5, GFR less than 15 ml/min (HCC); Acute kidney in jury (nontraumatic) (HCC); CVID (common va riable immunodeficiency) (HCC); S/P lung transp lant (HCC); Anemia, unspeci fied type; Bronchiectasis without complication (HCC); Elevated liver enzymes; Malignant melan jennifer of face (HCC); 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); Cirrhosis of li ramiro without ascites, unspecified hepatic cirrhosis type (HCC); CKD (chronic ki dney disease) stage 4, GFR 15-29 ml/min (HCC) Orders Only General Internal 0 Medicine Telephone Transplant Hepatology Ayala Rodriguez MRB recommendations 0 RN Refill Hepatology Aaron Reese 0 MD Zahra Telephone Transplant Hepatology Ayala Rodriguez MRB recommendations 0 RN Abstract Transplant Hepatology Zully Spicer 0 Office Visit Cardiology Ivette, Pre-transplant 0 MD Vahid evaluation for liver transplant Hospital Encounter Radiology Vincenzo Linares, Other cirrhosis of liver (HCC); 0 Pre-transplant evaluation for liver transplant; Screening for m alignant neoplasm Hospital Encounter Radiology Aaron Reese Pre-tr ansplant evaluation for liver transplant; 0 MD Zahra Cirrhosis of li ramiro with ascites, unspecified hepatic cirrhosis type (HCC) Orders Only General Internal 0 Medicine Documentation Transplant Hepatology Shaista Ellington 0 Orders Only Transplant Hepatology Salima Valentin Pre- transplant evaluation for liver transplant (Primary Dx); 0 R, RN Cirrhosis of li ramiro with ascites, unspecified hepatic cirrhosis type (HCC) Telephone Transplant Hepatology Ayala Rodriguez, MELD score 0 RN Documentation Transplant Hepatology Karlie Juarez 0 Documentation Transplant Hepatology Karlie Juarez 0 Documentation Transplant Hepatology Karlie Juarez 0 Hospital Encounter Radiology Aaron Reese Encoun ter for preprocedural cardiovascular examination ; 0 MD Zahra Pre-transplant evaluation for liver transplant; Cirrhosis of li ramiro with ascites, unspecified hepatic cirrhosis type (HCC) Hospital Encounter Cardiology Aaron Reese Encoun ter for follow-up examination after completed treatment for conditions other than malignant neoplasm ; 0 MD Zahra Pre-transplant evaluation for liver transplant; Cirrhosis of li ramiro with ascites, unspecified hepatic cirrhosis type (HCC) Hospital Encounter Cardiology Aaron Reese Pre-tr ansplant evaluation for liver transplant; 0 MD Zahra Cirrhosis of li ramiro with ascites, unspecified hepatic cirrhosis type (HCC) Telephone Transplant Hepatology Shaista Ellington Nai er Transplant 0 Pre-evaluation (Left LVM asking pt t o retrun my call, liver txp eval schedu ling needed.) Orders Only General Internal 0 Medicine Hospital Encounter Aaron Reese Pre-tr ansplant evaluation for liver transplant; 0 MD Zahra Cirrhosis of li ramiro with ascites, unspecified hepatic cirrhosis type (HCC) Hospital Encounter Aaron Reese Pre-tr ansplant evaluation for liver transplant; 0 MD Zahar Cirrhosis of li ramiro with ascites, unspecified hepatic cirrhosis type (HCC) Hospital Encounter Aaron Reese Pre-tr ansplant evaluation for liver transplant; 0 MD Zahra Cirrhosis of li ramiro with ascites, unspecified hepatic cirrhosis type (HCC) Evaluation Transplant Hepatology Vincenzo Linares, 0 Aurea Branch Evaluation Transplant Hepatology Vincenzo Linares, Ot er cirrhosis of liver (HCC); 0 Pre-transplant evaluation for liver winn splant; Brenna Quick Portal hyperten shar (HCC); CAIN Roth Double Lung Tr ansplant; Impaired ambula tion; Drug use Evaluation Transplant Hepatology Vincenzo Linares, Pre -transplant 0 evaluation for liver LawZully R transplant ( Primary Dx) Social Work Transplant Hepatology Vincenzo Linares, 0 John Huffman LCSW Orders Only Transplant Hepatology Vincenzo Linares, Pre -transplant evaluation for liver transplant; 0 Cirrhosis of li ramiro with ascites, unspecified hepatic cirrhosis type (HCC); Screening for e ndocrine, nutritional, metabolic and immunity disorder; Abnormal findin g of blood chemistry, unspecified ; Acidosis ; Screening for m alignant neoplasm; Encounter for s creening for other viral diseases; Immunity status testing Orders Only Transplant Hepatology Salima Valentin cirrhosis of liver (HCC) (Primary Dx); 0 R, RN Pre-transplant evaluation for liver transplant; Screening for m alignant neoplasm Documentation Transplant Hepatology Karlie Juarez 0 Orders Only Transplant Hepatology Salima Valentin Oteugenio r cirrhosis of 0 R, RN liver (HCC) (Pr imary Dx) Documentation Transplant Hepatology Karlie Juarez 0 Abstract Transplant Hepatology Salima Valentin 0 R, RN Documentation Transplant Hepatology Salima Valentin 0 R, RN Documentation Transplant Hepatology Karlie Juarez 0 Documentation Transplant Hepatology Karlie Juarez 0 Documentation Transplant Hepatology Karlie Juarez 0 Telephone Hepatology Chanel Grijalva, Follow-up 0 RN Orders Only Hepatology Jos Skinner Hypervolemia, 0 Spring, RN IMCU unspecified hypervolemia ty pe (Primary Dx) Telephone Transplant Hepatology Aure De La Paz ret patient 0 L, TIME CYCLE OPERATOR call Refill Transplant Augusta Rodriguez 0 C, RN Refill Transplant Augusta Rodriguez 0 C, RN Documentation Transplant Hepatology Karlie Juarez 0 Orders Only Transplant Hepatology Salima Valentin Pre- transplant evaluation for liver transplant (Primary Dx); 0 R, RN Cirrhosis of li ramiro with ascites, unspecified hepatic cirrhosis type (HCC); Screening for m alignant neoplasm; Encounter for s creening for other viral diseases; Immunity status testing; Screening for e ndocrine, nutritional, metabolic and immunity disorder; Abnormal findin g of blood chemistry, unspecified ; Acidosis ; Encounter for p reprocedural cardiovascular examination ; Encounter for f ollow-up examination after completed treatment for conditions other than malignant neoplasm Refill Hepatology Aaron Reese Other ascite s 0 MD Zahra Abstract Transplant Hepatology Raul Del Toro Jr., MD Office Visit Hepatology Aaron Reese Acute kidney injury (nontraumatic) (HCC) (Primary Dx); 0 MD Zahra Other cirrhosis of liver (HCC); Acute on chroni c respiratory failure with hypoxemia (HCC); CVID (common va riable immunodeficiency) (HCC); Double Lung Tra nsplant; Elevated liver enzymes; S/P TIPS (trans jugular intrahepatic portosystemic shunt); Portal hyperten shar (HCC); Sarcopenia; Immunosuppressi on (HCC) Telephone Hepatology Ariel Goel Appointment 0 H, SARA Orders Only Transplant Ryan, NOHEMI (acute kidn ey 0 Bhamidipati injury) (HCC) MD Joao (Primary Dx) Telephone Transplant Augusta Rodriguez Prior auth 0 C, RN Hospital Encounter Transplant [place], [place] Hypervole eileen, unspecified hypervolemia type (Primary Dx); 0 - MD Bryan Lung replaced b y transplant (HCC); Generalized abd ominal pain; 0 Acute kidney in jury (nontraumatic) (HCC); Acute on chroni c respiratory failure with hypoxemia (HCC); Acute urinary t ract infection; Other ascites; CVID (common va riable immunodeficiency) (HCC); Immunosuppressi on (HCC); Lung transplant status, bilateral (HCC); Dyspnea and res piratory abnormality; Other hypervole eileen; Other cirrhosis of liver (HCC); Itching; NOHEMI (acute kidn ey injury) (HCC) Office Visit Transplant Li July S/P lung transp lant (HCC); 0 MD Sweta Hyperglycemia Pb Gross MD Hospital Encounter Respiratory Therapy S/ P lung transplant 0 (HCC) Hospital Encounter Radiology S/P lung transplant 0 (HCC) Orders Only Transplant Michael, Augusta S/P lung tra nsplant (HCC) (Primary Dx); 0 C, RN Hyperglycemia Refill Transplant Blake, Yary Lung transpla nted 0 MD Ez (HCC) Telephone Transplant Michael, Augusta Labs Only 0 C, RN Documentation Hepatology Jos Skinner 0 Spring, RN IMCU Documentation Hepatology Jos Skinner 0 Spring, RN IMCU Orders Only Hepatology Jos Skinner Itching 0 Spring, RN IMCU Refill Hepatology Aaron Reese Itching 0 MD Zahra Abstract Hepatology Tiera Barrios, 0 MA Orders Only Transplant Michael, Augusta S/P lung tra nsplant 0 C, RN (HCC) Telephone Transplant Michael, [place] Labs Only 0 C, RN Telephone Transplant Michael, [place] Abnormal Lab 0 C, RN Orders Only Transplant Michael, Augusta 0 C, RN Telephone Transplant Michael, [place] Labs Only 0 C, RN Telephone Transplant Michael, August[place] Labs Only 0 C, RN Orders Only Transplant Augusta Rodriguez S/P lung tra nsplant 0 C, RN (HCC) Telephone Hepatology Erik Pina Abnormal Lab 0 PRIYANKA Peguero Telephone Transplant Augusta Rodriguez Follow-up 0 C, RN Orders Only Transplant MichaelAugusta friedman S/P lung tra nsplant (HCC) (Primary Dx); 0 C, RN Scrotal swellin g; Hepatic cirrhos is, unspecified hepatic cirrhosis type, unspecified whether ascites present (HCC) Telephone Transplant Augusta Rodriguez Labs Only 0 C, RN Telephone Hepatology Miriam Mckinney Follow-up 0 WES Estevez Orders Only Hepatology Miriam Mckinney Hyperkalemia (P rimary 0 WES Estevez Dx) Infusion Oncology Minoo, July 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) (Primary Dx) Abstract Transplant Hepatology Rainer Ramírez, 0 RN Telephone Transplant Mark, Medication Refi ll 0 DELISA Collado Audio - Hepatology Jerrod Santos Cirrhosis of l iver with ascites, unspecified hepatic cirrhosis type (HCC) (Primary Dx); 0 Telemedicine MD Que Chronic kidney disease, unspecified CKD stage; KaMiriam rodriguez Other ascites; WES Estevez Esophageal michael ices without bleeding, unspecified esophageal varices type (HCC); Hepatic encepha lopathy (HCC); Cancer screenin g Orders Only Hepatology Miriam Mckinney Cirrhosis of li ramiro 0 WES Estevez with ascites, unspecified hep atic cirrhosis type (HCC) Telephone Hepatology Odilia Wolfe, Marlon ( ZOOM) 0 SARA Mott Orders Only Hepatology Jos Skinner Other ascites 0 Spring, RN IMCU (Primary Dx) Travel 0 Emergency General Internal Jana Kelly MD Dyspnea and respiratory abnormality (Stephanie graeme Dx); 0 - Medicine Abril Foster Acute pulmona ry edema (HCC); MD Greg Elevated brain natriuretic peptide (BNP) level; 0 History of lung transplant (HCC); History of cirr hosis; Other ascites Orders Only General Internal 0 Medicine Travel 0 Telephone Hepatology Jos Skinner discussion wit h 0 Spring, RN IMCU transplant Telephone Transplant Augusta Rodriguez other 0 C, RN Telephone Hepatology Jos Skinner follow up call 0 Spring, RN IMCU Orders Only Hepatology Ronna Landeros Other cirrh osis of 0 A., TRANSPLANT RN liver (HCC) (Pr imary Dx) Telephone Hepatology Ronna Landeros RN IMCU of the d ay call 0 A., TRANSPLANT RN Infusion Oncology Dronavalli, CVID (common va riable 0 MD Claudio immunodeficienc y) (HCC) (Primary Dx) Orders Only Hepatology Erik Pina Cirrhosis of l iver 0 PRIYANKA Peguero with ascites, unspecified hep atic cirrhosis type (HCC) (Primary Dx) Telephone Hepatology Jos Skinner follow up call 0 Spring, RN IMCU Telephone Hepatology Jos Skinner follow up call 0 Spring, RN IMCU Video - Hepatology Aaron Reese Cirrhosis of liver with ascites, unspecified hepatic cirrhosis type (HCC) (Primary Dx); 0 Telemedicine MD Zahra Lung transplant ed (HCC); Sarcopenia; S/P TIPS (trans jugular intrahepatic portosystemic shunt); S/P lung transp lant (HCC); Other cirrhosis of liver (HCC); CVID (common va riable immunodeficiency) (HCC); Double Lung Tra nsplant; Portal hyperten shar (HCC) Telephone Hepatology Tiera Barrios, Appointment 0 MA Orders Only Transplant Augusta Rodriguez S/P lung tra nsplant 0 C, RN (HCC) Orders Only Transplant Augusta Rodriguez Li-Fraumeni syndrome (Primary Dx); 0 C, RN S/P lung transp lant (HCC) Orders Only Hepatology Erik Pina Cirrhosis of l iver 0 PRIYANKA Peguero with ascites, unspecified hep atic cirrhosis type (HCC) (Primary Dx) Telephone Hepatology Jos Skinner Labs Only 0 Spring, RN IMCU Telephone Transplant Augusta Rodriguez Labs Only 0 C, RN Telephone Hepatology Odilia Wolfe, RETURNING LUZMARIA L FOR 0 SARA Mott-RN IMCU Telephone Hepatology Jos Skinner labs/new medic ation 0 Spring, RN IMCU Telephone Hepatology Chanel Grijalva, Follow up 0 RN Telephone Hepatology Jos Skinner itching/labs 0 Spring, RN IMCU Telephone Hepatology Chanel Grijalva, Follow up 0 RN Telephone Hepatology Chanel Grijalva, Follow up 0 RN Orders Only Transplant Hepatology Aaron Reese Ot er ascites; 0 MD Zahra Cirrhosis of li ramiro with ascites, unspecified hepatic cirrhosis type (HCC); S/P lung transp lant (HCC) Orders Only Hepatology Cho, Line S/P lung winn splant 0 Kastrup, TRANSPLANT RN (HCC) (Primary Dx) Telephone Hepatology Jos Skinner itching 0 Spring, RN IMCU Telephone Hepatology Jos Skinner follow up call 0 Spring, RN IMCU Office Visit Hepatology Aaron Reese Other ascite s (Primary Dx); 0 MD Zahra Cirrhosis of li ramiro with ascites, unspecified hepatic cirrhosis type (HCC); S/P TIPS (trans jugular intrahepatic portosystemic shunt); S/P lung transp lant (HCC); Other cirrhosis of liver (HCC); Immunosuppressi on (HCC); CVID (common va riable immunodeficiency) (HCC); Double Lung Tra nsplant; Diarrhea, unspe cified type Telephone Hepatology Jos Skinner COVID 19 - scr eening 0 Spring, RN IMCU Telephone Hepatology PRIOR Willie AUTH (XIF AXAN 0 Sydni 550 MG ) Documentation Hepatology Erik Pina 0 PRIYANKA Peguero Refill Transplant Augusta Rodriguez S/P lung tra nsplant 0 C, RN (HCC) Anesthesia Event Josie, 0 Josep Ceja MD Surgery Virtual, Surgeon PROCEDURE D ONE 0 OUTSIDE OR Hospital Encounter General Internal Vincenzo Linares, Ot her ascites (Primary Dx); 0 - Medicine Double Lung Transplant Natanael Morales 0 MD Greta Peña Tuan Quoc, MD Travel 0 Refill Transplant Augusta Rodriguez S/P lung tra nsplant 0 C, RN (HCC) Orders Only Internal Medicine Bill Scanlon 0 MD Addis Orders Only Hepatology Ronna Landeros Cirrhosis o f liver 0 A., TRANSPLANT RN with ascites, unspecified hep atic cirrhosis type (HCC) (Primary Dx) Telephone Hepatology Ronna Landeros Order kiana fication 0 A., TRANSPLANT RN Orders Only General Internal 0 Medicine Orders Only Hepatology Erik Pina Other ascites 0 PRIYANKA Peguero (Primary Dx) Documentation Hepatology Erik Pina 0 PRIYANKA Peguero Telephone Hepatology Brook Gomez returned page 0 CAIN Peguero Orders Only Transplant MichaelAugusta friedman 0 Ez, RN Surgery Moustapha Fabian, R CATH 0 Hospital Encounter Transplant Mark Ortiz MD Scrotal swelling (Primary Dx); 0 - Joudah, Skinny Hepatic cirrhos is, unspecified hepatic cirrhosis type, unspecified whether ascites present (HCC); MD Patricia S/P lung transp lant (HCC); 0 Immunosuppressi on (HCC); Acute kidney in jury (nontraumatic) (HCC); Other ascites; Cirrhosis of li ramiro with ascites, unspecified hepatic cirrhosis type (HCC); CVID (common va riable immunodeficiency) (HCC); Elevated liver enzymes; Portal hyperten shar (HCC); 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); Cancer screenin g; Screening for m alignant neoplasm Travel 0 Anesthesia Event Gastroenterology Siria Fish, DO 0 Surgery Gastroenterology Vincenzo Linares, UPPER EN DOSCOPY 0 Hospital Encounter Gastroenterology Vincenzo Linares, 0 Orders Only Cardiology Minoo, July Double Lung 0 MD Sweta Transplant Hospital Encounter Radiology Vincenzo Linares, Cirrho sis of liver 0 with ascites, unspecified hep atic cirrhosis type (HCC) Orders Only Hepatology Erik Pina Liver mass (Pr imary Dx); 0 PRIYANKA Peguero Cirrhosis of li ramiro with ascites, unspecified hepatic cirrhosis type (HCC) Hospital Encounter Pre-Admission Testing 0 Telephone Transplant Cori Renee follow up pu lmonary 0 T, TIME CYCLE OPERATOR rehab referral Hospital Encounter Radiology Vincenzo Linares, Cirrho sis of liver 0 with ascites, unspecified hep atic cirrhosis type (HCC) Telephone Hepatology Desiree Chaves, Follow-up (O rders for 0 RN Paracentesis) Orders Only Hepatology Erik Pina Cirrhosis of l iver 0 PRIYANKA Peguero with ascites, unspecified hep atic cirrhosis type (HCC) (Primary Dx) Hospital Encounter Radiology Vincenzo Linares, Other ascites 0 Telephone Transplant Cori Renee pulmonary re hab 0 T, TIME CYCLE OPERATOR Telephone Hepatology Augusta Pardo Procedure ( EGD/TIVA) 0 Emergency Emergency Medicine Ricky Benton Chronic l iver disease (Primary Dx); 0 MD Rivera Other ascites; Hernan Stock MD Travel 0 Telephone Transplant Cori Renee pulmonary re hab 0 T, TIME CYCLE OPERATOR Telephone Transplant Cori Renee status of pu lmonary 0 T, TIME CYCLE OPERATOR rehab Surgery Gastroenterology Familia Day UPPER ENDOS COPY 0 Fernando Pagan III, MD Anesthesia Event Gastroenterology [place] 0 MD Maria Isabel Curry Chandra Ann, CRNA Hospital Encounter General Internal Vu, Mark Lopez MD Generalized abdominal pain (Primary Dx); 0 - Medicine Huber Mcadams, Melena; Other cirrhosis of liver (HCC); 0 Other ascites; Lung transplant ed (HCC); Acute on chroni c respiratory failure with hypoxemia (HCC); Chronic diarrhe a; Elevated liver enzymes; CVID (common va riable immunodeficiency) (HCC); Gastroesophagea l reflux disease with esophagitis Travel 0 Orders Only Transplant Michael Augusta Double Lung 0 C, community service director (Stephanie graeme Dx) Telephone Transplant Cori Renee follow up st atus 0 T, TIME CYCLE OPERATOR pulmonary rehab Hospital Encounter Radiology Vincenzo Linares, Other ascites 0 Hospital Encounter Transplant Jose Galaviz zeclaire abdominal pain; 0 - MD Fidencio CVID (common variable immunodeficiency) (HCC); July Hennessy Other cirrhosis of liver (HCC); 0 MD Sweta Fever, unspeci fied fever cause; Hyperkalemia Telephone Hepatology Edelmira Pereira, Paracentesis order 0 MA Travel 0 Orders Only Transplant Lokesh Vega Double Lung 0 MD Andre Transplant Orders Only Hepatology Federico Bonds Other ascites 0 CAIN Salas (Primary Dx) Outside Orders Central Scheduling Gary Lokesh Lung transplant 0 MD Andre status, bilater al (HCC) (Primary Dx) Emergency Emergency Medicine Raul Diaz Abdominal distention (Primary Dx); 9 MD Cristo Other ascites Travel 9 Infusion Oncology Dronavalli, CVID (common va riable 9 MD Claudio immunodeficienc y) (HCC) (Primary Dx) after 06/07/2019 Immunizations Name Administration Dates Next Due Hepatitis B 08/11/2012, 06/16/2012 INFLUENZA TRIVALENT ADJUVANTED PF IM 04/25/2019 Influenza High Dose Preservative Free IM 05/29/2018, 016 Influenza High Dose Preservative Free TG338005/24/2015 Influenza TIV (IM) 03/01/2012 Influenza, High Dose Seasonal 04/20/2014 Pneumococcal Conjugate (Prevnar) 13-Valent 05/29/2018 Pneumococcal Polysaccharide (Pneumovax) 07/01/2008 Family History Medical History Relation Name Comments Hypertension Brother Cancer Father Cancer Mother Cancer Paternal Aunt Relation Name Status Comments Brother Father Mother Paternal Aunt Social History Tobacco Use Types Packs/Day Years Used Date Former Smoker 1 20 Quit: 01/18/20 03 Smokeless Tobacco: Never Used Alcohol Use Drinks/Week oz/Week Comments No Sex Assigned at Date Recorded Not on file Last Filed Vital Signs Vital Sign Reading Time Taken Comments Blood Pressure 112/64 05/01/2020 8:16 AM APPLICATIONS INTERN Pulse 68 05/01/2020 8:16 AM APPLICATIONS INTERN Temperature 36.5 C (97.7 F) 05/01/2020 8:16 AM APPLICATIONS INTERN Respiratory Rate 18 05/01/2020 8:16 AM APPLICATIONS INTERN Oxygen Saturation 100% 05/01/2020 8:16 AM APPLICATIONS INTERN Inhaled Oxygen Concentration 21% 04/25/2020 7:34 PM CDT Weight 49.5 kg (109 lb 1.6 oz) 05/20/2020 9:22 AM APPLICATIONS INTERN Height 175.3 cm (5' 9") 05/20/2020 9:22 AM APPLICATIONS INTERN Body Mass Index 16.11 05/20/2020 9:22 AM APPLICATIONS INTERN Plan of Treatment Date Type Specialty Care Team Description 06/10/2020 Hospital Encounter Radiology Jos Skinner NP [address] [facility] [id number] [place], [place] [address] [phone] 06/17/2020 Office Visit Hepatology Amari Carlton MD [address] [facility] [address] [place], [place] [address] [phone] Health Maintenance Due Date Last Done Comments COLON CANCER SCREENING ANNUAL FOBT 1955 PNEUMOCOCCAL VACCINE 0-64 YRS (3 07/24/2018 05/29/2018, 07/2008 of 3 - PPSV23) DEPRESSION SCREENING (12+) 07/01/2019 08/31/2019 INFLUENZA VACCINE (#1) 2020 04/25/2019, 05/29/2018, 06/05/2016, Additional history exists LIPID PANEL 04/06/2025 04/06/2020, 01/20/2019, 11/18/2018, Additional history exists Procedures Procedure Name Priority Date/Time Associated Comments Diagnosis EBV ANTIBODY, IGG Routine 05/13/2020 1:22 Pre-transplant Resu lts for this PM APPLICATIONS INTERN evaluation for procedure are in chronic kidney the results disease section. NOHEMI (acute kidney injury) (HCC) Immunosuppression (HCC) POCT-GLUCOSE METER Routine 05/01/2020 8:19 Resul ts for this AM APPLICATIONS INTERN procedure are i n the results section. CBC W/PLT COUNT & AUTO Routine 05/01/2020 5:03 R esults for this DIFFERENTIAL AM APPLICATIONS INTERN procedure are i n the results section. B-TYPE NATRIURETIC Routine 05/01/2020 5:03 Resul ts for this FACTOR (BNP) AM APPLICATIONS INTERN procedure are i n the results section. TACROLIMUS LEVEL Routine 05/01/2020 5:03 Results for this AM APPLICATIONS INTERN procedure are i n the results section. PHOSPHORUS Routine 05/01/2020 5:03 Results for this AM APPLICATIONS INTERN procedure are i n the results section. MAGNESIUM Routine 05/01/2020 5:03 Results for this AM APPLICATIONS INTERN procedure are i n the results section. CBC W/PLT COUNT & AUTO Routine 05/01/2020 5:03 R esults for this DIFFERENTIAL AM APPLICATIONS INTERN procedure are i n the results section. PROTHROMBIN TIME/INR Routine 05/01/2020 5:03 Res ults for this AM APPLICATIONS INTERN procedure are i n the results section. HEPATIC FUNCTION PANEL Routine 05/01/2020 5:03 R esults for this AM APPLICATIONS INTERN procedure are i n the results section. BASIC METABOLIC PANEL Routine 05/01/2020 5:03 Re sults for this (7) AM APPLICATIONS INTERN procedure are i n the results section. POCT-GLUCOSE METER Routine 04/30/2020 11:54 Resul ts for this AM CDT procedure are i n the results section. POCT-GLUCOSE METER Routine 04/30/2020 8:09 Resul ts for this AM CDT procedure are i n the results section. CBC W/PLT COUNT & AUTO Routine 04/30/2020 5:32 R esults for this DIFFERENTIAL AM CDT procedure are i n the results section. B-TYPE NATRIURETIC Routine 04/30/2020 5:32 Resul ts for this FACTOR (BNP) AM CDT procedure are i n the results section. TACROLIMUS LEVEL Routine 04/30/2020 5:32 Results for this AM CDT procedure are i n the results section. PHOSPHORUS Routine 04/30/2020 5:32 Results for this AM CDT procedure are i n the results section. MAGNESIUM Routine 04/30/2020 5:32 Results for this AM CDT procedure are i n the results section. CBC W/PLT COUNT & AUTO Routine 04/30/2020 5:32 R esults for this DIFFERENTIAL AM CDT procedure are i n the results section. PROTHROMBIN TIME/INR Routine 04/30/2020 5:32 Res ults for this AM CDT procedure are i n the results section. HEPATIC FUNCTION PANEL Routine 04/30/2020 5:32 R esults for this AM CDT procedure are i n the results section. BASIC METABOLIC PANEL Routine 04/30/2020 5:32 Re sults for this (7) AM CDT procedure are i n the results section. POCT-GLUCOSE METER Routine 04/29/2020 11:58 Resul ts for this AM CDT procedure are i n the results section. HLA TYPING CII MEHRAN 04/29/2020 10:41 Results f or this AM CDT procedure are i n the results section. HLA TYPING CI MEHRAN 04/29/2020 10:41 Results fo r this AM CDT procedure are i n the results section. FLOW PRA CLASS II WITH MEHRAN 04/29/2020 10:41 R esults for this REFLEX TO ANTIBODY AM CDT procedure are in SPECIFICITY the results section. FLOW PRA CLASS I WITH MEHRAN 04/29/2020 10:41 Re sults for this REFLEX TO ANTIBODY AM CDT procedure are in SPECIFICITY the results section. POCT-GLUCOSE METER Routine 04/29/2020 8:23 Resul ts for this AM CDT procedure are i n the results section. B-TYPE NATRIURETIC Routine 04/29/2020 6:00 Resul ts for this FACTOR (BNP) AM CDT procedure are i n the results section. CBC W/PLT COUNT & AUTO Routine 04/29/2020 5:59 R esults for this DIFFERENTIAL AM CDT procedure are i n the results section. TACROLIMUS LEVEL Routine 04/29/2020 5:59 Results for this AM CDT procedure are i n the results section. PHOSPHORUS Routine 04/29/2020 5:59 Results for this AM CDT procedure are i n the results section. MAGNESIUM Routine 04/29/2020 5:59 Results for this AM CDT procedure are i n the results section. CBC W/PLT COUNT & AUTO Routine 04/29/2020 5:59 R esults for this DIFFERENTIAL AM CDT procedure are i n the results section. PROTHROMBIN TIME/INR Routine 04/29/2020 5:59 Res ults for this AM CDT procedure are i n the results section. HEPATIC FUNCTION PANEL Routine 04/29/2020 5:59 R esults for this AM CDT procedure are i n the results section. BASIC METABOLIC PANEL Routine 04/29/2020 5:59 Re sults for this (7) AM CDT procedure are i n the results section. POCT-GLUCOSE METER Routine 04/28/2020 9:47 Resul ts for this PM CDT procedure are i n the results section. POCT-GLUCOSE METER Routine 04/28/2020 5:38 Resul ts for this PM CDT procedure are i n the results section. POCT-GLUCOSE METER Routine 04/28/2020 12:19 Resul ts for this PM CDT procedure are i n the results section. US PELVIS WITH DOPPLER Routine 04/28/2020 11:15 R esults for this AM CDT procedure are i n the results section. POCT-GLUCOSE METER Routine 04/28/2020 7:31 Resul ts for this AM CDT procedure are i n the results section. PREPARE LEUKO-REDUCED Routine 04/27/2020 11:54 Re sults for this RBC PM CDT procedure are i n the results section. POCT-GLUCOSE METER Routine 04/27/2020 10:00 Resul ts for this PM CDT procedure are i n the results section. POCT-GLUCOSE METER Routine 04/27/2020 5:54 Resul ts for this PM CDT procedure are i n the results section. HEMOGLOBIN AND Routine 04/27/2020 4:50 Results f or this HEMATOCRIT PM CDT procedure are i n the results section. POCT-ACT Routine 04/27/2020 4:49 Results for this PM CDT procedure are i n the results section. POCT-GLUCOSE METER Routine 04/27/2020 4:49 Resul ts for this PM CDT procedure are i n the results section. POCT-GLUCOSE METER Routine 04/27/2020 3:22 Resul ts for this PM CDT procedure are i n the results section. POCT-GLUCOSE METER Routine 04/27/2020 3:12 Resul ts for this PM CDT procedure are i n the results section. POCT-ACT Routine 04/27/2020 1:40 Results for this PM CDT procedure are i n the results section. POCT-GLUCOSE METER Routine 04/27/2020 11:23 Resul ts for this AM CDT procedure are i n the results section. R & L CATH / CORONARY 04/27/2020 11:13 Other specified ANGIOS (+/- LV) AM CDT pre-operative examination POCT-GLUCOSE METER Routine 04/27/2020 9:58 Resul ts for this AM CDT procedure are i n the results section. CBC W/PLT COUNT & AUTO Routine 04/27/2020 5:31 R esults for this DIFFERENTIAL AM CDT procedure are i n the results section. B-TYPE NATRIURETIC Routine 04/27/2020 5:31 Resul ts for this FACTOR (BNP) AM CDT procedure are i n the results section. TACROLIMUS LEVEL Routine 04/27/2020 5:31 Results for this AM CDT procedure are i n the results section. PHOSPHORUS Routine 04/27/2020 5:31 Results for this AM CDT procedure are i n the results section. MAGNESIUM Routine 04/27/2020 5:31 Results for this AM CDT procedure are i n the results section. CBC W/PLT COUNT & AUTO Routine 04/27/2020 5:31 R esults for this DIFFERENTIAL AM CDT procedure are i n the results section. PROTHROMBIN TIME/INR Routine 04/27/2020 5:31 Res ults for this AM CDT procedure are i n the results section. HEPATIC FUNCTION PANEL Routine 04/27/2020 5:31 R esults for this AM CDT procedure are i n the results section. BASIC METABOLIC PANEL Routine 04/27/2020 5:31 Re sults for this (7) AM CDT procedure are i n the results section. TRANSFUSE LEUKO-REDUCED Routine 04/26/2020 8:54 RED BLOOD CELLS PM CDT POCT-GLUCOSE METER Routine 04/26/2020 7:48 Resul ts for this PM CDT procedure are i n the results section. US DOPPLER STAT 04/26/2020 4:07 Results for this PM CDT procedure are i n the results section. US ABDOMEN COMPLETE STAT 04/26/2020 4:07 Resu lts for this PM CDT procedure are i n the results section. TRANSFUSE LEUKO-REDUCED Routine 04/26/2020 3:19 RED BLOOD CELLS PM CDT POCT-GLUCOSE METER Routine 04/26/2020 12:18 Resul ts for this PM CDT procedure are i n the results section. HAPTOGLOBIN Routine 04/26/2020 9:05 Results for this AM CDT procedure are i n the results section. VITAMIN B12 AND FOLATE Routine 04/26/2020 9:05 R esults for this AM CDT procedure are i n the results section. CBC W/PLT COUNT & AUTO STAT 04/26/2020 8:06 R esults for this DIFFERENTIAL AM CDT procedure are i n the results section. ABORH, MANUAL Routine 04/26/2020 8:06 Results fo r this AM CDT procedure are i n the results section. TYPE AND SCREEN, Routine 04/26/2020 8:06 Results for this AUTOMATED AM CDT procedure are i n the results section. CBC W/PLT COUNT & AUTO STAT 04/26/2020 8:06 R esults for this DIFFERENTIAL AM CDT procedure are i n the results section. POCT-GLUCOSE METER Routine 04/26/2020 7:46 Resul ts for this AM CDT procedure are i n the results section. (CELLAVISION MANUAL Routine 04/26/2020 5:31 Resu lts for this DIFF) AM CDT procedure are i n the results section. CBC W/PLT COUNT & AUTO Routine 04/26/2020 5:31 R esults for this DIFFERENTIAL AM CDT procedure are i n the results section. RETICULOCYTE COUNT Add-On 04/26/2020 5:31 Resul ts for this AM CDT procedure are i n the results section. LACTATE DEHYDROGENASE Add-On 04/26/2020 5:31 Re sults for this (LDH) AM CDT procedure are i n the results section. B-TYPE NATRIURETIC Routine 04/26/2020 5:31 Resul ts for this FACTOR (BNP) AM CDT procedure are i n the results section. TACROLIMUS LEVEL Routine 04/26/2020 5:31 Results for this AM CDT procedure are i n the results section. PHOSPHORUS Routine 04/26/2020 5:31 Results for this AM CDT procedure are i n the results section. MAGNESIUM Routine 04/26/2020 5:31 Results for this AM CDT procedure are i n the results section. CBC W/PLT COUNT & AUTO Routine 04/26/2020 5:31 R esults for this DIFFERENTIAL AM CDT procedure are i n the results section. PROTHROMBIN TIME/INR Routine 04/26/2020 5:31 Res ults for this AM CDT procedure are i n the results section. HEPATIC FUNCTION PANEL Routine 04/26/2020 5:31 R esults for this AM CDT procedure are i n the results section. BASIC METABOLIC PANEL Routine 04/26/2020 5:31 Re sults for this (7) AM CDT procedure are i n the results section. POCT-GLUCOSE METER Routine 04/25/2020 10:06 Resul ts for this PM CDT procedure are i n the results section. BLOOD GAS, VENOUS Routine 04/25/2020 9:40 Result s for this PM CDT procedure are i n the results section. VITAMIN D, 25-HYDROXY Routine 04/25/2020 7:55 Re sults for this PM CDT procedure are i n the results section. IRON, TIBC, % SAT. Routine 04/25/2020 7:55 Resul ts for this (WITHOUT FERRITIN) PM CDT procedure are in the results section. FERRITIN Routine 04/25/2020 7:55 Results for this PM CDT procedure are i n the results section. TOXICOLOGY SCREEN, STAT 04/25/2020 7:53 Resul ts for this SERUM PM CDT procedure are i n the results section. POCT-GLUCOSE METER Routine 04/25/2020 3:14 Resul ts for this PM CDT procedure are i n the results section. MISCELLANEOUS LAB ORDER STAT 04/25/2020 2:44 PM CDT POCT-GLUCOSE METER Routine 04/25/2020 11:21 Resul ts for this AM CDT procedure are i n the results section. POCT-GLUCOSE METER Routine 04/25/2020 7:35 Resul ts for this AM CDT procedure are i n the results section. FIBRINOGEN STAT 04/25/2020 5:51 Results for this AM CDT procedure are i n the results section. LACTIC ACID, VENOUS Routine 04/25/2020 5:51 Resu lts for this AM CDT procedure are i n the results section. CBC W/PLT COUNT & AUTO Routine 04/25/2020 4:16 R esults for this DIFFERENTIAL AM CDT procedure are i n the results section. LIPASE Routine 04/25/2020 4:16 Results for this AM CDT procedure are i n the results section. IMMUNOGLOBULIN M (IGM) Routine 04/25/2020 4:16 R esults for this AM CDT procedure are i n the results section. IMMUNOGLOBULIN A (IGA) Routine 04/25/2020 4:16 R esults for this AM CDT procedure are i n the results section. IMMUNOGLOBULIN G (IGG) Routine 04/25/2020 4:16 R esults for this AM CDT procedure are i n the results section. B-TYPE NATRIURETIC Routine 04/25/2020 4:16 Resul ts for this FACTOR (BNP) AM CDT procedure are i n the results section. TACROLIMUS LEVEL Routine 04/25/2020 4:16 Results for this AM CDT procedure are i n the results section. PHOSPHORUS Routine 04/25/2020 4:16 Results for this AM CDT procedure are i n the results section. MAGNESIUM Routine 04/25/2020 4:16 Results for this AM CDT procedure are i n the results section. CBC W/PLT COUNT & AUTO Routine 04/25/2020 4:16 R esults for this DIFFERENTIAL AM CDT procedure are i n the results section. HEPATIC FUNCTION PANEL Routine 04/25/2020 4:16 R esults for this AM CDT procedure are i n the results section. BASIC METABOLIC PANEL Routine 04/25/2020 4:16 Re sults for this (7) AM CDT procedure are i n the results section. IGG SUBCLASSES PANEL Routine 04/25/2020 4:15 Res ults for this AM CDT procedure are i n the results section. PROTHROMBIN TIME/INR Routine 04/25/2020 4:15 Res ults for this AM CDT procedure are i n the results section. XR ABDOMEN / KUB 1 VIEW STAT 04/25/2020 1:19 Results for this AM CDT procedure are i n the results section. US RENAL COMPLETE STAT 04/25/2020 1:05 Result s for this AM CDT procedure are i n the results section. POCT-GLUCOSE METER Routine 04/25/2020 12:29 Resul ts for this AM CDT procedure are i n the results section. SARS-COV2/RT-PCR ([facility] [facility] STAT 04/25/2020 12:05 R esults for this & REF LABS) AM CDT procedure are i n the results section. POCT-GLUCOSE METER Routine 04/24/2020 11:40 Resul ts for this PM CDT procedure are i n the results section. PROTEIN, RANDOM URINE Routine 04/24/2020 9:31 Re sults for this PM CDT procedure are i n the results section. CREATININE, RANDOM Routine 04/24/2020 9:31 Resul ts for this URINE PM CDT procedure are i n the results section. UREA NITROGEN, RANDOM Routine 04/24/2020 9:31 Re sults for this URINE PM CDT procedure are i n the results section. POTASSIUM, RANDOM URINE Routine 04/24/2020 9:31 Results for this PM CDT procedure are i n the results section. CHLORIDE, RANDOM URINE Routine 04/24/2020 9:31 R esults for this PM CDT procedure are i n the results section. SODIUM, RANDOM URINE Routine 04/24/2020 9:31 Res ults for this PM CDT procedure are i n the results section. URINALYSIS W/ REFLEX STAT 04/24/2020 9:31 Res ults for this URINE CULTURE PM CDT procedure are in the results section. TACROLIMUS LEVEL STAT 04/24/2020 9:05 Results for this PM CDT procedure are i n the results section. LACTIC ACID, VENOUS STAT 04/24/2020 9:05 Resu lts for this PM CDT procedure are i n the results section. ECG 12-LEAD Routine 04/24/2020 9:04 Results for this PM CDT procedure are i n the results section. ECG 12-LEAD Routine 04/24/2020 9:04 PM CDT Procedure Note - Interface, External Ris In - 04/24/2020 10:46 PM CDT Ventricular Rate 66 BPM Atrial Rate 66 BPM P-R Interval 134 ms QRS Duration 94 ms Q-T Interval 442 ms QTC Calculation(Bazett) 463 ms P [place] 68 degrees R [place] 48 degrees T [place] 226 degrees Sinus rhythm with Premature atrial complexes Nonspecific T wave abnormali ty Abnormal ECG When compared with ECG of 21:00, Sinus rhythm has replaced Ju nctional rhythm Nonspecific T wave abnormali ty has replaced inverted T waves in Anterior leads Nonspecific T wave abnormali ty, worse in Lateral leads ECG 12-LEAD Routine 04/24/2020 9:00 PM CDT Procedure Note - Interface, External Ris In - 04/24/2020 10:46 PM CDT Ventricular Rate 65 BPM Atrial Rate 65 BPM QRS Duration 96 ms Q-T Interval 440 ms QTC Calculation(Bazett) 457 ms R [place] 20 degrees T [place] -55 degrees Junctional rhythm Left ventricular hypertrophy with repolarization abnormality Abnormal ECG When compared with ECG of 11:13, Junctional rhythm has replac ed Sinus rhythm Inverted T waves have replac ed nonspecific T wave abnormality in Inferior leads T wave inversion more eviden t in Anterior leads ECG 12-LEAD STAT 04/24/2020 9:00 Results for this PM CDT procedure are i n the results section. XR CHEST 2 VIEWS STAT 04/24/2020 6:36 Results for this PM CDT procedure are i n the results section. T4, FREE Routine 04/24/2020 6:33 Results for this PM CDT procedure are i n the results section. B-TYPE NATRIURETIC STAT 04/24/2020 6:33 Resul ts for this FACTOR (BNP) PM CDT procedure are i n the results section. TSH/FREE T4 IF STAT 04/24/2020 6:33 Results f or this INDICATED PM CDT procedure are i n the results section. PROCALCITONIN STAT 04/24/2020 6:33 Results fo r this PM CDT procedure are i n the results section. BLOOD GAS, VENOUS STAT 04/24/2020 6:33 Result s for this PM CDT procedure are i n the results section. CBC W/PLT COUNT & AUTO STAT 04/24/2020 6:22 R esults for this DIFFERENTIAL PM CDT procedure are i n the results section. TROPONIN I STAT 04/24/2020 6:22 Results for this PM CDT procedure are i n the results section. APTT STAT 04/24/2020 6:22 Results for this PM CDT procedure are i n the results section. PROTHROMBIN TIME/INR STAT 04/24/2020 6:22 Res ults for this PM CDT procedure are i n the results section. COMPREHENSIVE METABOLIC STAT 04/24/2020 6:22 Results for this PANEL PM CDT procedure are i n the results section. LACTIC ACID, VENOUS STAT 04/24/2020 6:22 Resu lts for this PM CDT procedure are i n the results section. CBC W/PLT COUNT & AUTO STAT 04/24/2020 6:22 R esults for this DIFFERENTIAL PM CDT procedure are i n the results section. BLOOD CULTURE STAT 04/24/2020 6:22 Results fo r this PM CDT procedure are i n the results section. BLOOD CULTURE STAT 04/24/2020 6:22 Results fo r this PM CDT procedure are i n the results section. ED ECG INTERPRETATION Routine 04/24/2020 5:38 Re sults for this PM CDT procedure are i n the results section. REPORT OF PROCEDURE - 04/24/2020 Result s for this ENDOSCOPY SCAN procedure are in the results section. CARDIAC CATH REPORT - 04/24/2020 Result s for this SCAN procedure are i n the results section. NM MYOCARDIAL PERFUSION Routine 04/19/2020 3:30 Pre-transplan t Results for this SPECT, PHARM(LEXISCAN) PM CDT evaluation for pro cedure are in liver transplant the results Cirrhosis of liver section. with ascites, unspecified hepatic cirrhosis type (HCC) TREADMILL Routine 04/19/2020 11:26 Results for this TOLERANCE(NON-NUCLEAR AM CDT proced ure are in TREADMILL) the results section. ECG 12-LEAD Routine 04/19/2020 11:13 Results for this AM CDT procedure are i n the results section. ECG 12-LEAD Routine 04/19/2020 11:13 AM CDT Procedure Note - Interface, External Ris In - 04/19/2020 1:04 PM CDT Ventricular Rate 83 BPM Atrial Rate 83 BPM P-R Interval 140 ms QRS Duration 78 ms Q-T Interval 400 ms QTC Calculation(Bazett) 470 ms P [place] 62 degrees R [place] 36 degrees T [place] 21 degrees Normal sinus rhythm Nonspecific ST and T wave ab normality Prolonged QT Abnormal ECG ECG 12-LEAD Routine 04/19/2020 11:12 AM CDT Procedure Note - Interface, External Ris In - 04/19/2020 1:04 PM CDT Ventricular Rate 84 BPM Atrial Rate 84 BPM P-R Interval 136 ms QRS Duration 78 ms Q-T Interval 392 ms QTC Calculation(Bazett) 463 ms P [place] 66 degrees R [place] 39 degrees T [place] 15 degrees Sinus rhythm with Premature atrial complexes Nonspecific T wave abnormali ty Prolonged QT Abnormal ECG CAROTID DOPPLER Routine 04/07/2020 9:05 Encounter for follow- up Results for this BILATERAL AM CDT examination after completed procedure are in treatment for conditions the results other than malignant section . neoplasm Pre-transplant evaluation for liver transp lant Cirrhosis of liver with ascites, unspecified hepatic cirrhosis type (HCC) ECG 12-LEAD Routine 04/07/2020 8:45 AM CDT Procedure Note - Interface, External Ris In - 04/07/2020 9:30 AM CDT Ventricular Rate 68 BPM Atrial Rate 68 BPM P-R Interval 132 ms QRS Duration 98 ms Q-T Interval 408 ms QTC Calculation(Bazett) 433 ms P [place] 97 degrees R [place] 46 degrees T [place] -3 degrees Normal sinus rhythm with sin us arrhythmia Nonspecific T wave abnormali ty Abnormal ECG When compared with ECG of 18:48, Inverted T waves have replac ed nonspecific T wave abnormality in Inferior leads Nonspecific T wave abnormali ty, worse in Anterolateral leads ECG 12-LEAD Routine 04/07/2020 Pre-transplant evaluation Re sults for 8:45 AM CDT for liver transp lant this procedure Cirrhosis of liver with are in the ascites, unspecified results hepatic cirrhosis type secti on. (HCC) XR CHEST 2 VIEWS Routine 04/06/2020 Pre-transplant evaluatio n Results for 12:40 PM CDT for liver transp lant this procedure Cirrhosis of liver with are in the ascites, unspecified results hepatic cirrhosis type secti on. (HCC) XR MANDIBLE 4 VIEWS Routine 04/06/2020 Pre-transplant evalua tion Results for MIN 12:40 PM CDT for liver transp lant this procedure Cirrhosis of liver with are in the ascites, unspecified results hepatic cirrhosis type secti on. (HCC) XR DXA BONE DENSITY Routine 04/06/2020 Pre-transplant evalua tion Results for STUDY 12:39 PM CDT for liver transp lant this procedure Cirrhosis of liver with are in the ascites, unspecified results hepatic cirrhosis type secti on. (HCC) MISCELLANEOUS LAB Routine 04/06/2020 Other cirrhosis of live r ORDER 10:55 AM CDT (HCC) CBC W/PLT COUNT & AUTO Routine 04/06/2020 Pre-transplant stevenson luation Results for DIFFERENTIAL 7:38 AM CDT for liver transp lant this procedure Cirrhosis of liver with are in the ascites, unspecified results hepatic cirrhosis type secti on. (HCC) RUBELLA ANTIBODY, IGG Routine 04/06/2020 Immunity status mindy ting Results for 7:38 AM CDT this procedure are in the results section. VARICELLA ZOSTER Routine 04/06/2020 Immunity status testing Results for ANTIBODY, IGG 7:38 AM CDT this procedure are in the results section. CRYPTOCOCCAL ANTIGEN Routine 04/06/2020 Immunity status test ing Results for 7:38 AM CDT this procedure are in the results section. ALPHA-1 ANTITRYPSIN Routine 04/06/2020 Pre-transplant evalua tion Results for MUTATION ANALYSIS 7:38 AM CDT for liver winn splant this procedure Cirrhosis of liver with are in the ascites, unspecified results hepatic cirrhosis type secti on. (HCC) URINALYSIS W/ Routine 04/06/2020 Pre-transplant evaluation R esults for MICROSCOPIC 7:38 AM CDT for liver transp lant this procedure Cirrhosis of liver with are in the ascites, unspecified results hepatic cirrhosis type secti on. (HCC) T SPOT TB Routine 04/06/2020 Pre-transplant evaluation Re sults for 7:38 AM CDT for liver transp lant this procedure Cirrhosis of liver with are in the ascites, unspecified results hepatic cirrhosis type secti on. (HCC) Encounter for screening for other viral diseases RPR Routine 04/06/2020 Pre-transplant evaluation Re sults for 7:38 AM CDT for liver transp lant this procedure Cirrhosis of liver with are in the ascites, unspecified results hepatic cirrhosis type secti on. (HCC) Encounter for screening for other viral diseases EBV ANTIBODY, IGM Routine 04/06/2020 Pre-transplant evaluati on Results for 7:38 AM CDT for liver transp lant this procedure Cirrhosis of liver with are in the ascites, unspecified results hepatic cirrhosis type secti on. (HCC) Encounter for screening for other viral diseases CYTOMEGALOVIRUS Routine 04/06/2020 Pre-transplant evaluation Results for ANTIBODY, IGM 7:38 AM CDT for liver transp lant this procedure Cirrhosis of liver with are in the ascites, unspecified results hepatic cirrhosis type secti on. (HCC) Encounter for screening for other viral diseases T3 Routine 04/06/2020 Pre-transplant evaluation Re sults for 7:38 AM CDT for liver transp lant this procedure Cirrhosis of liver with are in the ascites, unspecified results hepatic cirrhosis type secti on. (HCC) Screening for endocrine, nutritional, metabolic and immunity disorder URIC ACID Routine 04/06/2020 Pre-transplant evaluation Re sults for 7:38 AM CDT for liver transp lant this procedure Cirrhosis of liver with are in the ascites, unspecified results hepatic cirrhosis type secti on. (HCC) Screening for endocrine, nutritional, metabolic and immunity disorder ZINC Routine 04/06/2020 Pre-transplant evaluation Re sults for 7:38 AM CDT for liver transp lant this procedure Cirrhosis of liver with are in the ascites, unspecified results hepatic cirrhosis type secti on. (HCC) Screening for endocrine, nutritional, metabolic and immunity disorder DRUG SCREEN, URINE, Routine 04/06/2020 Acidosis TRANSPLANT 7:38 AM CDT Pre-transplant evaluation for liver transp lant Cirrhosis of liver with ascites, unspecified hepatic cirrhosis type (HCC) Screening for endocrine, nutritional, metabolic and immunity disorder LIPID PANEL Routine 04/06/2020 Abnormal finding of blood Re sults for 7:38 AM CDT chemistry, unspe cified this procedure Pre-transplant evaluation ar e in the for liver transp lant results Cirrhosis of liver with sect ion. ascites, unspecified hepatic cirrhosis type (HCC) Screening for endocrine, nutritional, metabolic and immunity disorder CBC W/PLT COUNT & AUTO Routine 04/06/2020 Pre-transplant stevenson luation Results for DIFFERENTIAL 7:38 AM CDT for liver transp lant this procedure Cirrhosis of liver with are in the ascites, unspecified results hepatic cirrhosis type secti on. (HCC) PHOSPHORUS Routine 04/06/2020 Pre-transplant evaluation Re sults for 7:38 AM CDT for liver transp lant this procedure Cirrhosis of liver with are in the ascites, unspecified results hepatic cirrhosis type secti on. (HCC) Screening for endocrine, nutritional, metabolic and immunity disorder MAGNESIUM Routine 04/06/2020 Pre-transplant evaluation Re sults for 7:38 AM CDT for liver transp lant this procedure Cirrhosis of liver with are in the ascites, unspecified results hepatic cirrhosis type secti on. (HCC) Screening for endocrine, nutritional, metabolic and immunity disorder CALCIUM, IONIZED Routine 04/06/2020 Pre-transplant evaluatio n Results for 7:38 AM CDT for liver transp lant this procedure Cirrhosis of liver with are in the ascites, unspecified results hepatic cirrhosis type secti on. (HCC) Screening for endocrine, nutritional, metabolic and immunity disorder GAMMA GLUTAMYL Routine 04/06/2020 Pre-transplant evaluation Results for TRANSFERASE (GGT) 7:38 AM CDT for liver winn splant this procedure Cirrhosis of liver with are in the ascites, unspecified results hepatic cirrhosis type secti on. (HCC) Screening for endocrine, nutritional, metabolic and immunity disorder BILIRUBIN, DIRECT Routine 04/06/2020 Pre-transplant evaluati on Results for 7:38 AM CDT for liver transp lant this procedure Cirrhosis of liver with are in the ascites, unspecified results hepatic cirrhosis type secti on. (HCC) Screening for endocrine, nutritional, metabolic and immunity disorder COMPREHENSIVE Routine 04/06/2020 Pre-transplant evaluation R esults for METABOLIC PANEL 7:38 AM CDT for liver transp lant this procedure Cirrhosis of liver with are in the ascites, unspecified results hepatic cirrhosis type secti on. (HCC) Screening for endocrine, nutritional, metabolic and immunity disorder [id number] Routine 04/06/2020 Pre-transplant evalua tion Results for (AAT) PHENOTYPE 7:37 AM CDT for liver transp lant this procedure Cirrhosis of liver with are in the ascites, unspecified results hepatic cirrhosis type secti on. (HCC) [id number], Routine 04/06/2020 Pre-transplant eval uation Results for SERUM 7:37 AM CDT for liver transp lant this procedure Cirrhosis of liver with are in the ascites, unspecified results hepatic cirrhosis type secti on. (HCC) RUBEOLA ANTIBODY IGG Routine 04/06/2020 Immunity status test ing Results for 7:37 AM CDT this procedure are in the results section. MUMPS ANTIBODY, IGG Routine 04/06/2020 Immunity status testi ng Results for 7:37 AM CDT this procedure are in the results section. TESTOSTERONE, FREE + Routine 04/06/2020 Pre-transplant evalu ation Results for TOTAL 7:37 AM CDT for liver transp lant this procedure Cirrhosis of liver with are in the ascites, unspecified results hepatic cirrhosis type secti on. (HCC) Screening for endocrine, nutritional, metabolic and immunity disorder PSA Routine 04/06/2020 Pre-transplant evaluation Re sults for 7:37 AM CDT for liver transp lant this procedure Cirrhosis of liver with are in the ascites, unspecified results hepatic cirrhosis type secti on. (HCC) Screening for endocrine, nutritional, metabolic and immunity disorder [id number] Routine 04/06/2020 Pre-transplant evalua tion QUANTITATION & 7:37 AM CDT for liver transp lant PHENOTYPE Cirrhosis of liver with ascites, unspecified hepatic cirrhosis type (HCC) HIV-1 ANTIGEN WITH Routine 04/06/2020 Pre-transplant evaluat ion Results for HIV-1/2 ANTIBODY 7:37 AM CDT for liver trans plant this procedure Cirrhosis of liver with are in the ascites, unspecified results hepatic cirrhosis type secti on. (HCC) Encounter for screening for other viral diseases HEPATITIS C ANTIBODY Routine 04/06/2020 Pre-transplant evalu ation Results for 7:37 AM CDT for liver transp lant this procedure Cirrhosis of liver with are in the ascites, unspecified results hepatic cirrhosis type secti on. (HCC) Encounter for screening for other viral diseases HEPATITIS B CORE Routine 04/06/2020 Pre-transplant evaluatio n Results for ANTIBODY, IGM 7:37 AM CDT for liver transp lant this procedure Cirrhosis of liver with are in the ascites, unspecified results hepatic cirrhosis type secti on. (HCC) Encounter for screening for other viral diseases HEPATITIS B CORE Routine 04/06/2020 Pre-transplant evaluatio n Results for ANTIBODY, TOTAL 7:37 AM CDT for liver transp lant this procedure Cirrhosis of liver with are in the ascites, unspecified results hepatic cirrhosis type secti on. (HCC) Encounter for screening for other viral diseases HEPATITIS B SURFACE Routine 04/06/2020 Pre-transplant evalua tion Results for ANTIBODY 7:37 AM CDT for liver transp lant this procedure Cirrhosis of liver with are in the ascites, unspecified results hepatic cirrhosis type secti on. (HCC) Encounter for screening for other viral diseases HEPATITIS B SURFACE Routine 04/06/2020 Pre-transplant evalua tion Results for ANTIGEN 7:37 AM CDT for liver transp lant this procedure Cirrhosis of liver with are in the ascites, unspecified results hepatic cirrhosis type secti on. (HCC) Encounter for screening for other viral diseases HEPATITIS A ANTIBODY, Routine 04/06/2020 Pre-transplant eval uation Results for IGM 7:37 AM CDT for liver transp lant this procedure Cirrhosis of liver with are in the ascites, unspecified results hepatic cirrhosis type secti on. (HCC) Encounter for screening for other viral diseases HEPATITIS A ANTIBODY, Routine 04/06/2020 Pre-transplant eval uation Results for IGG 7:37 AM CDT for liver transp lant this procedure Cirrhosis of liver with are in the ascites, unspecified results hepatic cirrhosis type secti on. (HCC) Encounter for screening for other viral diseases T4 Routine 04/06/2020 Pre-transplant evaluation Re sults for 7:37 AM CDT for liver transp lant this procedure Cirrhosis of liver with are in the ascites, unspecified results hepatic cirrhosis type secti on. (HCC) Screening for endocrine, nutritional, metabolic and immunity disorder TSH Routine 04/06/2020 Pre-transplant evaluation Re sults for 7:37 AM CDT for liver transp lant this procedure Cirrhosis of liver with are in the ascites, unspecified results hepatic cirrhosis type secti on. (HCC) Screening for endocrine, nutritional, metabolic and immunity disorder CARCINOEMBRYONIC Routine 04/06/2020 Pre-transplant evaluatio n Results for ANTIGEN (CEA) 7:37 AM CDT for liver transp lant this procedure Cirrhosis of liver with are in the ascites, unspecified results hepatic cirrhosis type secti on. (HCC) Screening for malignant neoplasm CARBOHYDRATE ANTIGEN Routine 04/06/2020 Pre-transplant evalu ation Results for 19-9 (CA 19-9) 7:37 AM CDT for liver transp lant this procedure Cirrhosis of liver with are in the ascites, unspecified results hepatic cirrhosis type secti on. (HCC) Screening for malignant neoplasm ETHANOL Routine 04/06/2020 Acidosis Results for 7:37 AM CDT Pre-transplant evaluation th is procedure for liver transp lant are in the Cirrhosis of liver with resu lts ascites, unspecified section . hepatic cirrhosis type (HCC) Screening for endocrine, nutritional, metabolic and immunity disorder VITAMIN D, 25-HYDROXY Routine 04/06/2020 Pre-transplant eval uation Results for 7:37 AM CDT for liver transp lant this procedure Cirrhosis of liver with are in the ascites, unspecified results hepatic cirrhosis type secti on. (HCC) Screening for endocrine, nutritional, metabolic and immunity disorder CERULOPLASMIN Routine 04/06/2020 Pre-transplant evaluation R esults for 7:37 AM CDT for liver transp lant this procedure Cirrhosis of liver with are in the ascites, unspecified results hepatic cirrhosis type secti on. (HCC) Screening for endocrine, nutritional, metabolic and immunity disorder TRANSFERRIN Routine 04/06/2020 Pre-transplant evaluation Re sults for 7:37 AM CDT for liver transp lant this procedure Cirrhosis of liver with are in the ascites, unspecified results hepatic cirrhosis type secti on. (HCC) Screening for endocrine, nutritional, metabolic and immunity disorder ACTIN (SMOOTH MUSCLE) Routine 04/06/2020 Pre-transplant eval uation Results for ANTIBODY, IGG 7:37 AM CDT for liver transp lant this procedure Cirrhosis of liver with are in the ascites, unspecified results hepatic cirrhosis type secti on. (HCC) APTT Routine 04/06/2020 Pre-transplant evaluation Re sults for 7:37 AM CDT for liver transp lant this procedure Cirrhosis of liver with are in the ascites, unspecified results hepatic cirrhosis type secti on. (HCC) Screening for endocrine, nutritional, metabolic and immunity disorder PROTHROMBIN TIME/INR Routine 04/06/2020 Pre-transplant evalu ation Results for 7:37 AM CDT for liver transp lant this procedure Cirrhosis of liver with are in the ascites, unspecified results hepatic cirrhosis type secti on. (HCC) Screening for endocrine, nutritional, metabolic and immunity disorder FIBRINOGEN Routine 04/06/2020 Pre-transplant evaluation Re sults for 7:37 AM CDT for liver transp lant this procedure Cirrhosis of liver with are in the ascites, unspecified results hepatic cirrhosis type secti on. (HCC) Screening for endocrine, nutritional, metabolic and immunity disorder CBC W/PLT COUNT & AUTO Routine 03/09/2020 Acute kidney injur y Results for DIFFERENTIAL 2:31 PM CDT (nontraumatic) ( HCC) this procedure Other cirrhosis of liver are in the (HCC) results section. TACROLIMUS LEVEL Routine 03/09/2020 Acute kidney injury Resu lts for 2:31 PM CDT (nontraumatic) ( HCC) this procedure Other cirrhosis of liver are in the (HCC) results section. ALPHA FETOPROTEIN Routine 03/09/2020 Acute kidney injury Res ults for (AFP), TUMOR MARKER 2:31 PM CDT (nontraumati c) (HCC) this procedure Other cirrhosis of liver are in the (HCC) results section. PROTHROMBIN TIME/INR Routine 03/09/2020 Acute kidney injury Results for 2:31 PM CDT (nontraumatic) ( HCC) this procedure Other cirrhosis of liver are in the (HCC) results section. CBC W/PLT COUNT & AUTO Routine 03/09/2020 Acute kidney injur y Results for DIFFERENTIAL 2:31 PM CDT (nontraumatic) ( HCC) this procedure Other cirrhosis of liver are in the (HCC) results section. HEPATIC FUNCTION PANEL Routine 03/09/2020 Acute kidney injur y Results for 2:31 PM CDT (nontraumatic) ( HCC) this procedure Other cirrhosis of liver are in the (HCC) results section. BASIC METABOLIC PANEL Routine 03/09/2020 Acute kidney injury Results for (7) 2:31 PM CDT (nontraumatic) ( HCC) this procedure Other cirrhosis of liver are in the (HCC) results section. BASIC METABOLIC PANEL Routine 02/29/2020 NOHEMI (acute kidney i njury) Results for (7) 12:46 PM CDT (HCC) this procedure are in the results section. MAGNESIUM Routine 02/26/2020 Results for 6:15 AM CDT this procedure are in the results section. TACROLIMUS LEVEL Routine 02/26/2020 Results for 6:15 AM CDT this procedure are in the results section. BASIC METABOLIC PANEL Routine 02/26/2020 Result s for (7) 6:15 AM CDT this procedure are in the results section. BASIC METABOLIC PANEL Routine 02/25/2020 Result s for (7) 2:04 PM CDT this procedure are in the results section. PULMONARY FUNCTION - 02/25/2020 Results for SCAN 1:40 PM CDT this procedure are in the results section. HEPATIC FUNCTION PANEL Add-On 02/25/2020 Resul ts for 5:52 AM CDT this procedure are in the results section. VITAMIN D, 25-HYDROXY Routine 02/25/2020 Result s for 5:52 AM CDT this procedure are in the results section. PTH, INTACT Routine 02/25/2020 Results for 5:52 AM CDT this procedure are in the results section. CBC (HEMOGRAM ONLY) Routine 02/25/2020 Results for 5:52 AM CDT this procedure are in the results section. MAGNESIUM Routine 02/25/2020 Results for 5:52 AM CDT this procedure are in the results section. TACROLIMUS LEVEL Routine 02/25/2020 Results for 5:52 AM CDT this procedure are in the results section. BASIC METABOLIC PANEL Routine 02/25/2020 Result s for (7) 5:52 AM CDT this procedure are in the results section. US ABDOMINAL WITH Routine 02/24/2020 Results fo r DOPPLER 10:56 PM CDT this procedure are in the results section. BLOOD GAS, VENOUS Routine 02/24/2020 Results fo r 6:13 PM CDT this procedure are in the results section. CREATININE, RANDOM Routine 02/24/2020 Results f or URINE 6:02 PM CDT this procedure are in the results section. UREA NITROGEN, RANDOM Routine 02/24/2020 Result s for URINE 6:02 PM CDT this procedure are in the results section. CHLORIDE, RANDOM URINE Routine 02/24/2020 Resul ts for 6:02 PM CDT this procedure are in the results section. POTASSIUM, RANDOM Routine 02/24/2020 Results fo r URINE 6:02 PM CDT this procedure are in the results section. SODIUM, RANDOM URINE Routine 02/24/2020 Results for 6:02 PM CDT this procedure are in the results section. BASIC METABOLIC PANEL Routine 02/24/2020 Result s for (7) 12:47 PM CDT this procedure are in the results section. 2D ECHO W/ DOPPLER Routine 02/24/2020 Results f or (CW/PW/COLOR) 11:53 AM CDT this procedure are in the results section. TACROLIMUS LEVEL Routine 02/24/2020 Results for 6:07 AM CDT this procedure are in the results section. PROTHROMBIN TIME/INR Routine 02/24/2020 Results for 6:07 AM CDT this procedure are in the results section. BASIC METABOLIC PANEL Routine 02/24/2020 Result s for (7) 6:07 AM CDT this procedure are in the results section. US RENAL COMPLETE Routine 02/24/2020 Results fo r 12:25 AM CDT this procedure are in the results section. PROTEIN, RANDOM URINE Routine 02/23/2020 Result s for 8:51 PM CDT this procedure are in the results section. CREATININE, RANDOM Routine 02/23/2020 Results f or URINE 8:51 PM CDT this procedure are in the results section. SODIUM, RANDOM URINE Routine 02/23/2020 Results for 8:51 PM CDT this procedure are in the results section. URINALYSIS W/ Routine 02/23/2020 Results for MICROSCOPIC 8:51 PM CDT this procedure are in the results section. FERRITIN Routine 02/23/2020 Results for 5:53 PM CDT this procedure are in the results section. VITAMIN B12 AND FOLATE Routine 02/23/2020 Resul ts for 5:53 PM CDT this procedure are in the results section. IRON, TIBC, % SAT. Routine 02/23/2020 Results f or (WITHOUT FERRITIN) 5:53 PM CDT this proc edure are in the results section. B-TYPE NATRIURETIC Routine 02/23/2020 Results f or FACTOR (BNP) 5:53 PM CDT this procedure are in the results section. BASIC METABOLIC PANEL Routine 02/23/2020 Result s for (7) 5:53 PM CDT this procedure are in the results section. SARS-COV2/RT-PCR ([facility] Routine 02/23/2020 Resul ts for & REF LABS) 12:33 PM CDT this procedure are in the results section. XR CHEST 2 VIEWS Routine 02/23/2020 S/P lung transplant ([facility] ) Results for 11:42 AM CDT this procedure are in the results section. SPIROMETRY Routine 02/23/2020 S/P lung transplant ([facility]) Re sults for 10:54 AM CDT this procedure are in the results section. CBC W/PLT COUNT & AUTO Routine 02/23/2020 S/P lung transplan t ([facility]) Results for DIFFERENTIAL 10:27 AM CDT this procedure are in the results section. AB DONOR SPECIFIC, DSA Routine 02/23/2020 S/P lung transplan t ([facility]) Results for 10:27 AM CDT this procedure are in the results section. PHOSPHORUS Routine 02/23/2020 S/P lung transplant ([facility]) Re sults for 10:27 AM CDT this procedure are in the results section. MAGNESIUM Routine 02/23/2020 S/P lung transplant ([facility]) Re sults for 10:27 AM CDT this procedure are in the results section. HEMOGLOBIN A1C Routine 02/23/2020 S/P lung transpl ant ([facility]) Results for 10:27 AM CDT Hyperglycemia this procedure are in the results section. FLOW PRA CLASS II WITH Routine 02/23/2020 S/P lung transplan t ([facility]) Results for REFLEX TO ANTIBODY 10:27 AM CDT this proc edure SPECIFICITY are in the results section. FLOW PRA CLASS I WITH Routine 02/23/2020 S/P lung transplant ([facility]) Results for REFLEX TO ANTIBODY 10:27 AM CDT this proc edure SPECIFICITY are in the results section. COMPREHENSIVE Routine 02/23/2020 S/P lung transplant ([facility]) R esults for METABOLIC PANEL 10:27 AM CDT this procedu re are in the results section. CBC W/PLT COUNT & AUTO Routine 02/23/2020 S/P lung transplan t ([facility]) Results for DIFFERENTIAL 10:27 AM CDT this procedure are in the results section. AB SPECIFICITY CLASS Routine 02/23/2020 S/P lung transplant ([facility]) Results for II 10:27 AM CDT this procedure are in the results section. AB SPECIFICITY CLASS I Routine 02/23/2020 S/P lung transplan t ([facility]) Results for 10:27 AM CDT this procedure are in the results section. TACROLIMUS LEVEL Routine 02/23/2020 S/P lung transplant (HCC ) Results for 10:26 AM CDT this procedure are in the results section. CMV PCR, QUANTITATIVE Routine 02/23/2020 S/P lung transplant (HCC) Results for 10:26 AM CDT this procedure are in the results section. CBC W/PLT COUNT & AUTO Routine 01/27/2020 Cirrhosis of liver with Results for DIFFERENTIAL 10:56 AM CDT ascites, unspecified this pr ocedure hepatic cirrhosis type are i n the (HCC) results section. BASIC METABOLIC PANEL Routine 01/27/2020 Cirrhosis of liver with Results for (7) 10:56 AM CDT ascites, unspecified this pr ocedure hepatic cirrhosis type are i n the (HCC) results section. HEPATIC FUNCTION PANEL Routine 01/27/2020 Cirrhosis of liver with Results for 10:56 AM CDT ascites, unspecified this pr ocedure hepatic cirrhosis type are i n the (HCC) results section. PROTHROMBIN TIME/INR Routine 01/27/2020 Cirrhosis of liver w ith Results for 10:56 AM CDT ascites, unspecified this pr ocedure hepatic cirrhosis type are i n the (HCC) results section. REPORT OF PROCEDURE - 12/17/2019 ENDOSCOPY SCAN 3:00 PM CDT RHYTHM STRIP - SCAN 12/14/2019 10:01 AM CDT BLOOD CULTURE STAT 12/10/2019 Results for 8:28 PM CDT this procedure are in the results section. LACTIC ACID, VENOUS STAT 12/10/2019 Results for 8:27 PM CDT this procedure are in the results section. CBC W/PLT COUNT & AUTO STAT 12/10/2019 Resul ts for DIFFERENTIAL 8:07 PM CDT this procedure are in the results section. B-TYPE NATRIURETIC STAT 12/10/2019 Results f or FACTOR (BNP) 8:07 PM CDT this procedure are in the results section. TROPONIN I STAT 12/10/2019 Results for 8:07 PM CDT this procedure are in the results section. HEPATIC FUNCTION PANEL STAT 12/10/2019 Resul ts for 8:07 PM CDT this procedure are in the results section. BASIC METABOLIC PANEL STAT 12/10/2019 Result s for (7) 8:07 PM CDT this procedure are in the results section. APTT STAT 12/10/2019 Results for 8:07 PM CDT this procedure are in the results section. PROTHROMBIN TIME/INR STAT 12/10/2019 Results for 8:07 PM CDT this procedure are in the results section. LACTIC ACID, VENOUS STAT 12/10/2019 Results for 8:07 PM CDT this procedure are in the results section. CBC W/PLT COUNT & AUTO STAT 12/10/2019 Resul ts for DIFFERENTIAL 8:07 PM CDT this procedure are in the results section. BLOOD CULTURE STAT 12/10/2019 Results for 8:07 PM CDT this procedure are in the results section. SARS-COV2/RT-PCR ([facility] STAT 12/10/2019 Resul ts for & REF LABS) 8:07 PM CDT this procedure are in the results section. XR CHEST 1 VIEW STAT 12/10/2019 Results for PORTABLE/BEDSIDE 7:48 PM CDT this proced ure are in the results section. ED ECG INTERPRETATION Routine 12/10/2019 Result s for 6:59 PM CDT this procedure are in the results section. ECG 12-LEAD Routine 12/10/2019 Results for 6:48 PM CDT this procedure are in the results section. ECG 12-LEAD Routine 12/10/2019 6:48 PM CDT Procedure Note - Interface, External Ris In - 12/11/2019 1:08 AM CDT Ventricular Rate 66 BPM Atrial Rate 66 BPM P-R Interval 126 ms QRS Duration 84 ms Q-T Interval 400 ms QTC Calculation(Bazett) 419 ms P [place] 40 degrees R [place] 17 degrees T [place] 61 degrees Normal sinus rhythm Normal ECG When compared with ECG of 07:44, Nonspecific T wave abnormali ty no longer evident in Anterior leads BASIC METABOLIC Routine 11/09/2019 3:39 Cirrhosis of liver wi th Results for PANEL (7) PM CDT ascites, unspecified this pr ocedure hepatic cirrhosis type are i n the (HCC) results section. HEPATIC FUNCTION Routine 11/09/2019 3:39 Cirrhosis of liver w ith Results for PANEL PM CDT ascites, unspecified this pr ocedure hepatic cirrhosis type are i n the (HCC) results section. CBC W/PLT COUNT & Routine 11/09/2019 3:39 Cirrhosis of liver with Results for AUTO DIFFERENTIAL PM CDT ascites, unspecified th is procedure hepatic cirrhosis type are i n the (HCC) results section. PROTHROMBIN Routine 11/09/2019 3:39 Cirrhosis of liver with Results for TIME/INR PM CDT ascites, unspecified this pr ocedure hepatic cirrhosis type are i n the (HCC) results section. TACROLIMUS LEVEL Routine 11/09/2019 3:39 Lung transplanted ([facility]) Results for PM CDT this procedure are in the results section. TACROLIMUS LEVEL Routine 10/20/2019 8:57 Immunosuppression ([facility]) Results for AM CDT this procedure are in the results section. PROTHROMBIN Routine 10/20/2019 8:52 Cirrhosis of liver with Results for TIME/INR AM CDT ascites, unspecified this pr ocedure hepatic cirrhosis type are i n the (HCC) results section. CBC W/PLT COUNT & Routine 10/20/2019 8:52 Cirrhosis of liver with Results for AUTO DIFFERENTIAL AM CDT ascites, unspecified th is procedure hepatic cirrhosis type are i n the (HCC) results section. HEPATIC FUNCTION Routine 10/20/2019 8:52 Cirrhosis of liver w ith Results for PANEL AM CDT ascites, unspecified this pr ocedure hepatic cirrhosis type are i n the (HCC) results section. BASIC METABOLIC Routine 10/20/2019 8:52 Cirrhosis of liver wi th Results for PANEL (7) AM CDT ascites, unspecified this pr ocedure hepatic cirrhosis type are i n the (HCC) results section. CBC W/PLT COUNT & Routine 10/05/2019 1:43 Other ascites Results for AUTO DIFFERENTIAL PM CDT Cirrhosis of liver with this procedure ascites, unspecified are in the hepatic cirrhosis type resul ts (HCC) section. CMV PCR, Routine 10/05/2019 1:43 S/P lung transplant Resu lts for QUANTITATIVE PM CDT (HCC) this procedure are in the results section. TACROLIMUS LEVEL Routine 10/05/2019 1:43 S/P lung transplant Results for PM CDT (HCC) this procedure are in the results section. ALPHA FETOPROTEIN Routine 10/05/2019 1:43 Other ascites Results for (AFP), TUMOR MARKER PM CDT Cirrhosis of liver wi th this procedure ascites, unspecified are in the hepatic cirrhosis type resul ts (HCC) section. PROTHROMBIN Routine 10/05/2019 1:43 Other ascites Results for TIME/INR PM CDT Cirrhosis of liver with this procedure ascites, unspecified are in the hepatic cirrhosis type resul ts (HCC) section. CBC W/PLT COUNT & Routine 10/05/2019 1:43 Other ascites Results for AUTO DIFFERENTIAL PM CDT Cirrhosis of liver with this procedure ascites, unspecified are in the hepatic cirrhosis type resul ts (HCC) section. HEPATIC FUNCTION Routine 10/05/2019 1:43 Other ascites Results for PANEL PM CDT Cirrhosis of liver with this procedure ascites, unspecified are in the hepatic cirrhosis type resul ts (HCC) section. BASIC METABOLIC Routine 10/05/2019 1:43 Other ascites Results for PANEL (7) PM CDT Cirrhosis of liver with this procedure ascites, unspecified are in the hepatic cirrhosis type resul ts (HCC) section. RHYTHM STRIP - SCAN 09/03/2019 8:50 AM APPLICATIONS INTERN IR TIPSS PROCEDURE Routine 08/31/2019 11:30 Other ascites Resu lts for AM APPLICATIONS INTERN this procedure are in the results section. TISSUE EXAM AP Routine 08/31/2019 11:20 Results for AM APPLICATIONS INTERN this procedure are in the results section. ECG 12-LEAD Routine 08/31/2019 7:44 AM APPLICATIONS INTERN Procedure Note - Interface, External Ris In - 08/31/2019 7:46 AM APPLICATIONS INTERN Ventricular Rate 64 BPM Atrial Rate 64 BPM P-R Interval 132 ms QRS Duration 86 ms Q-T Interval 402 ms QTC Calculation(Bazett) 414 ms P [place] 50 degrees R [place] 38 degrees T [place] 57 degrees Normal sinus rhythm Nonspecific T wave abnormali ty Abnormal ECG When compared with ECG of 14:08, No significant change was fo und ECG 12-LEAD Routine 08/31/2019 7:44 AM Results for this APPLICATIONS INTERN procedure are i n the results section. CBC W/PLT COUNT & AUTO Routine 08/31/2019 7:31 AM Results for this DIFFERENTIAL APPLICATIONS INTERN procedure are i n the results section. APTT Routine 08/31/2019 7:31 AM Results for this APPLICATIONS INTERN procedure are i n the results section. PROTHROMBIN TIME/INR Routine 08/31/2019 7:31 AM Results for this APPLICATIONS INTERN procedure are i n the results section. CBC W/PLT COUNT & AUTO Routine 08/31/2019 7:31 AM Results for this DIFFERENTIAL APPLICATIONS INTERN procedure are i n the results section. BILIRUBIN, DIRECT Routine 08/31/2019 7:31 AM Res ults for this APPLICATIONS INTERN procedure are i n the results section. COMPREHENSIVE Routine 08/31/2019 7:31 AM Results for this METABOLIC PANEL APPLICATIONS INTERN procedure ar e in the results section. PROCEDURE DONE OUTSIDE 08/31/2019 7:30 AM Alcoholic OR APPLICATIONS INTERN cirrhosis, unspecified whether ascites present (HCC) Status post transplant, lung (HCC) Special Needs (RM 1210) CARDIAC CATH REPORT 08/28/2019 1:40 - SCAN PM APPLICATIONS INTERN CBC W/PLT COUNT & Routine 08/26/2019 5:55 Result s for this AUTO DIFFERENTIAL AM APPLICATIONS INTERN procedure are in the results section. PROTHROMBIN TIME/INR Routine 08/26/2019 5:55 Res ults for this AM APPLICATIONS INTERN procedure are i n the results section. APTT Routine 08/26/2019 5:55 Results for this AM APPLICATIONS INTERN procedure are i n the results section. TACROLIMUS LEVEL Routine 08/26/2019 5:55 Results for this AM APPLICATIONS INTERN procedure are i n the results section. BASIC METABOLIC Routine 08/26/2019 5:55 Results for this PANEL (7) AM APPLICATIONS INTERN procedure are i n the results section. CBC W/PLT COUNT & Routine 08/26/2019 5:55 Result s for this AUTO DIFFERENTIAL AM APPLICATIONS INTERN procedure are in the results section. US HEPATIC PORTAL Routine 08/25/2019 9:15 Result s for this VESSEL WITH DOPPLER PM APPLICATIONS INTERN procedur e are in the results section. BASIC METABOLIC Routine 08/25/2019 7:22 Results for this PANEL (7) AM APPLICATIONS INTERN procedure are i n the results section. (CELLAVISION MANUAL Routine 08/25/2019 6:42 Resu lts for this DIFF) AM APPLICATIONS INTERN procedure are i n the results section. CBC W/PLT COUNT & Routine 08/25/2019 6:42 Result s for this AUTO DIFFERENTIAL AM APPLICATIONS INTERN procedure are in the results section. PROTHROMBIN TIME/INR Routine 08/25/2019 6:42 Res ults for this AM APPLICATIONS INTERN procedure are i n the results section. APTT Routine 08/25/2019 6:42 Results for this AM APPLICATIONS INTERN procedure are i n the results section. TACROLIMUS LEVEL Routine 08/25/2019 6:42 Results for this AM APPLICATIONS INTERN procedure are i n the results section. CBC W/PLT COUNT & Routine 08/25/2019 6:42 Result s for this AUTO DIFFERENTIAL AM APPLICATIONS INTERN procedure are in the results section. R CATH 08/24/2019 1:49 Pre-op evaluation PM APPLICATIONS INTERN (CELLAVISION MANUAL Routine 08/24/2019 6:06 Resu lts for this DIFF) AM APPLICATIONS INTERN procedure are i n the results section. CBC W/PLT COUNT & Routine 08/24/2019 6:06 Result s for this AUTO DIFFERENTIAL AM APPLICATIONS INTERN procedure are in the results section. GAMMA GLUTAMYL Routine 08/24/2019 6:06 Results f or this TRANSFERASE (GGT) AM APPLICATIONS INTERN procedure are in the results section. HEPATIC FUNCTION Routine 08/24/2019 6:06 Results for this PANEL AM APPLICATIONS INTERN procedure are i n the results section. BASIC METABOLIC Routine 08/24/2019 6:06 Results for this PANEL (7) AM APPLICATIONS INTERN procedure are i n the results section. CBC W/PLT COUNT & Routine 08/24/2019 6:06 Result s for this AUTO DIFFERENTIAL AM APPLICATIONS INTERN procedure are in the results section. US TESTICULAR WITH STAT 08/23/2019 1:20 Resul ts for this DOPPLER PM APPLICATIONS INTERN procedure are i n the results section. US ABDOMEN LIMITED STAT 08/23/2019 12:25 Resul ts for this PM APPLICATIONS INTERN procedure are i n the results section. CBC W/PLT COUNT & STAT 08/23/2019 10:46 Result s for this AUTO DIFFERENTIAL AM APPLICATIONS INTERN procedure are in the results section. AMYLASE STAT 08/23/2019 10:46 Results for this AM APPLICATIONS INTERN procedure are i n the results section. APTT STAT 08/23/2019 10:46 Results for this AM APPLICATIONS INTERN procedure are i n the results section. PROTHROMBIN TIME/INR STAT 08/23/2019 10:46 Res ults for this AM APPLICATIONS INTERN procedure are i n the results section. BASIC METABOLIC STAT 08/23/2019 10:46 Results for this PANEL (7) AM APPLICATIONS INTERN procedure are i n the results section. HEPATIC FUNCTION STAT 08/23/2019 10:46 Results for this PANEL AM APPLICATIONS INTERN procedure are i n the results section. LIPASE STAT 08/23/2019 10:46 Results for this AM APPLICATIONS INTERN procedure are i n the results section. CBC W/PLT COUNT & STAT 08/23/2019 10:46 Result s for this AUTO DIFFERENTIAL AM APPLICATIONS INTERN procedure are in the results section. REPORT OF PROCEDURE 08/20/2019 12:19 - ENDOSCOPY URL PM APPLICATIONS INTERN UPPER ENDOSCOPY 08/20/2019 11:51 Cirrhosis of liver AM APPLICATIONS INTERN without ascites, unspecified hepatic cirrhosis type ( HCC) Esophageal varices without bleeding, unspecified esophageal varices type (HCC) CBC W/PLT COUNT & Routine 08/19/2019 12:45 Double Lung Transpl ant Results for this AUTO DIFFERENTIAL PM APPLICATIONS INTERN procedure are in the results section. TACROLIMUS LEVEL Routine 08/19/2019 12:45 Double Lung Transpla nt Results for this PM APPLICATIONS INTERN procedure are i n the results section. CBC W/PLT COUNT & Routine 08/19/2019 12:45 Double Lung Transpl ant Results for this AUTO DIFFERENTIAL PM APPLICATIONS INTERN procedure are in the results section. BASIC METABOLIC Routine 08/19/2019 12:45 Double Lung Transplan t Results for this PANEL (7) PM APPLICATIONS INTERN procedure are i n the results section. US PARACENTESIS Routine 08/19/2019 11:22 Cirrhosis of liver wi th Results for this AM APPLICATIONS INTERN ascites, unspecified procedu re are in hepatic cirrhosis type the r esults (HCC) section. BODY FLUID CELL Routine 08/19/2019 11:12 Results for this COUNT WITH AM APPLICATIONS INTERN procedure are i n DIFFERENTIAL the results section. POCT-CREATININE Routine 08/19/2019 11:07 Results for this AM APPLICATIONS INTERN procedure are i n the results section. US PARACENTESIS Routine 08/12/2019 5:30 Cirrhosis of liver wi th Results for this PM APPLICATIONS INTERN ascites, unspecified procedu re are in hepatic cirrhosis type the r esults (HCC) section. BODY FLUID CELL Routine 08/12/2019 5:27 Results for this COUNT WITH PM APPLICATIONS INTERN procedure are i n DIFFERENTIAL the results section. POCT-CREATININE Routine 08/12/2019 4:02 Results for this PM APPLICATIONS INTERN procedure are i n the results section. US PARACENTESIS Routine 08/05/2019 11:11 Other ascites Results for this AM APPLICATIONS INTERN procedure are i n the results section. BODY FLUID CELL Routine 08/05/2019 10:41 Results for this COUNT WITH AM APPLICATIONS INTERN procedure are i n DIFFERENTIAL the results section. POCT-CREATININE Routine 08/05/2019 9:52 Results for this AM APPLICATIONS INTERN procedure are i n the results section. BODY FLUID CELL STAT 08/01/2019 9:35 Results for this COUNT WITH PM APPLICATIONS INTERN procedure are i n DIFFERENTIAL the results section. CBC W/PLT COUNT & STAT 08/01/2019 4:37 Result s for this AUTO DIFFERENTIAL PM APPLICATIONS INTERN procedure are in the results section. BASIC METABOLIC STAT 08/01/2019 4:37 Results for this PANEL (7) PM APPLICATIONS INTERN procedure are i n the results section. PT/APTT STAT 08/01/2019 4:37 Results for this PM APPLICATIONS INTERN procedure are i n the results section. HEPATIC FUNCTION STAT 08/01/2019 4:37 Results for this PANEL PM APPLICATIONS INTERN procedure are i n the results section. CBC W/PLT COUNT & STAT 08/01/2019 4:37 Result s for this AUTO DIFFERENTIAL PM APPLICATIONS INTERN procedure are in the results section. ABDOMINAL Routine 08/01/2019 3:57 Results for this PARACENTESIS-SUBSEQU PM APPLICATIONS INTERN procedu re are in ENT the results section. RHYTHM STRIP - SCAN 07/31/2019 1:40 PM APPLICATIONS INTERN RHYTHM STRIP - SCAN 07/31/2019 11:10 AM APPLICATIONS INTERN CBC W/PLT COUNT & Routine 07/30/2019 7:07 Result s for this AUTO DIFFERENTIAL AM APPLICATIONS INTERN procedure are in the results section. TACROLIMUS LEVEL Routine 07/30/2019 7:07 Results for this AM APPLICATIONS INTERN procedure are i n the results section. HEPATIC FUNCTION Routine 07/30/2019 7:07 Results for this PANEL AM APPLICATIONS INTERN procedure are i n the results section. PHOSPHORUS Routine 07/30/2019 7:07 Results for this AM APPLICATIONS INTERN procedure are i n the results section. MAGNESIUM Routine 07/30/2019 7:07 Results for this AM APPLICATIONS INTERN procedure are i n the results section. BASIC METABOLIC Routine 07/30/2019 7:07 Results for this PANEL (7) AM APPLICATIONS INTERN procedure are i n the results section. CBC W/PLT COUNT & Routine 07/30/2019 7:07 Result s for this AUTO DIFFERENTIAL AM APPLICATIONS INTERN procedure are in the results section. CBC W/PLT COUNT & Routine 07/29/2019 6:43 Result s for this AUTO DIFFERENTIAL AM APPLICATIONS INTERN procedure are in the results section. TACROLIMUS LEVEL Routine 07/29/2019 6:43 Results for this AM APPLICATIONS INTERN procedure are i n the results section. HEPATIC FUNCTION Routine 07/29/2019 6:43 Results for this PANEL AM APPLICATIONS INTERN procedure are i n the results section. PHOSPHORUS Routine 07/29/2019 6:43 Results for this AM APPLICATIONS INTERN procedure are i n the results section. MAGNESIUM Routine 07/29/2019 6:43 Results for this AM APPLICATIONS INTERN procedure are i n the results section. BASIC METABOLIC Routine 07/29/2019 6:43 Results for this PANEL (7) AM APPLICATIONS INTERN procedure are i n the results section. CBC W/PLT COUNT & Routine 07/29/2019 6:43 Result s for this AUTO DIFFERENTIAL AM APPLICATIONS INTERN procedure are in the results section. TRANSFUSION SERVICE 07/28/2019 6:26 REPORT - SCAN PM APPLICATIONS INTERN REPORT OF PROCEDURE 07/28/2019 3:39 - ENDOSCOPY URL PM APPLICATIONS INTERN UPPER ENDOSCOPY 07/28/2019 12:29 Gastrointestinal PM APPLICATIONS INTERN hemorrhage, unspecified gastrointestinal hemorrhage type Special Needs egd w/ anes XR CHEST 1 VIEW Routine 07/28/2019 9:12 Results for this PORTABLE/BEDSIDE AM APPLICATIONS INTERN procedure a re in the results section. (CELLAVISION MANUAL Routine 07/28/2019 4:52 Resu lts for this DIFF) AM APPLICATIONS INTERN procedure are i n the results section. CBC W/PLT COUNT & AUTO Routine 07/28/2019 4:52 R esults for this DIFFERENTIAL AM APPLICATIONS INTERN procedure are i n the results section. CMV PCR, QUANTITATIVE Routine 07/28/2019 4:52 Re sults for this AM APPLICATIONS INTERN procedure are i n the results section. TACROLIMUS LEVEL Routine 07/28/2019 4:52 Results for this AM APPLICATIONS INTERN procedure are i n the results section. HEPATIC FUNCTION PANEL Routine 07/28/2019 4:52 R esults for this AM APPLICATIONS INTERN procedure are i n the results section. PHOSPHORUS Routine 07/28/2019 4:52 Results for this AM APPLICATIONS INTERN procedure are i n the results section. MAGNESIUM Routine 07/28/2019 4:52 Results for this AM APPLICATIONS INTERN procedure are i n the results section. BASIC METABOLIC PANEL Routine 07/28/2019 4:52 Re sults for this (7) AM APPLICATIONS INTERN procedure are i n the results section. CBC W/PLT COUNT & AUTO Routine 07/28/2019 4:52 R esults for this DIFFERENTIAL AM APPLICATIONS INTERN procedure are i n the results section. US PARACENTESIS STAT 07/27/2019 6:20 Results for this PM APPLICATIONS INTERN procedure are i n the results section. BODY FLUID CULTURE + STAT 07/27/2019 6:00 Res ults for this GRAM STAIN PM APPLICATIONS INTERN procedure are i n the results section. BODY FLUID CELL COUNT Routine 07/27/2019 6:00 Re sults for this WITH DIFFERENTIAL PM APPLICATIONS INTERN procedure are in the results section. POCT OCCULT BLOOD STAT 07/27/2019 1:51 Result s for this STOOL(GUIAC) PM APPLICATIONS INTERN procedure are i n the results section. CBC W/PLT COUNT & AUTO STAT 07/27/2019 12:25 R esults for this DIFFERENTIAL PM APPLICATIONS INTERN procedure are i n the results section. TYPE AND SCREEN, STAT 07/27/2019 12:25 Results for this AUTOMATED PM APPLICATIONS INTERN procedure are i n the results section. AMYLASE STAT 07/27/2019 12:25 Results for this PM APPLICATIONS INTERN procedure are i n the results section. BLOOD GAS, VENOUS STAT 07/27/2019 12:25 Result s for this PM APPLICATIONS INTERN procedure are i n the results section. HEPATIC FUNCTION PANEL STAT 07/27/2019 12:25 R esults for this PM APPLICATIONS INTERN procedure are i n the results section. LACTIC ACID, VENOUS STAT 07/27/2019 12:25 Resu lts for this PM APPLICATIONS INTERN procedure are i n the results section. LIPASE STAT 07/27/2019 12:25 Results for this PM APPLICATIONS INTERN procedure are i n the results section. B-TYPE NATRIURETIC STAT 07/27/2019 12:25 Resul ts for this FACTOR (BNP) PM APPLICATIONS INTERN procedure are i n the results section. MAGNESIUM STAT 07/27/2019 12:25 Results for this PM APPLICATIONS INTERN procedure are i n the results section. PHOSPHORUS STAT 07/27/2019 12:25 Results for this PM APPLICATIONS INTERN procedure are i n the results section. BASIC METABOLIC PANEL STAT 07/27/2019 12:25 Re sults for this (7) PM APPLICATIONS INTERN procedure are i n the results section. CBC W/PLT COUNT & AUTO STAT 07/27/2019 12:25 R esults for this DIFFERENTIAL PM APPLICATIONS INTERN procedure are i n the results section. BLOOD CULTURE STAT 07/27/2019 12:25 Results fo r this PM APPLICATIONS INTERN procedure are i n the results section. PT/APTT STAT 07/27/2019 12:10 Results for this PM APPLICATIONS INTERN procedure are i n the results section. BLOOD CULTURE STAT 07/27/2019 12:10 Results fo r this PM APPLICATIONS INTERN procedure are i n the results section. POCT-CREATININE Routine 07/10/2019 3:34 Results for this PM APPLICATIONS INTERN procedure are i n the results section. US PARACENTESIS Routine 07/10/2019 3:19 Other ascites Results for this PM APPLICATIONS INTERN procedure are i n the results section. TRANSFUSION SERVICE 07/09/2019 6:01 REPORT - SCAN PM APPLICATIONS INTERN PREPARE LEUKO-REDUCED Routine 07/08/2019 11:54 Re sults for this RBC PM APPLICATIONS INTERN procedure are i n the results section. TRANSFUSION SERVICE 07/08/2019 6:14 REPORT - SCAN PM APPLICATIONS INTERN CBC W/PLT COUNT & AUTO Routine 07/08/2019 5:54 R esults for this DIFFERENTIAL AM APPLICATIONS INTERN procedure are i n the results section. TACROLIMUS LEVEL Routine 07/08/2019 5:54 Results for this AM APPLICATIONS INTERN procedure are i n the results section. MAGNESIUM Routine 07/08/2019 5:54 Results for this AM APPLICATIONS INTERN procedure are i n the results section. CBC W/PLT COUNT & AUTO Routine 07/08/2019 5:54 R esults for this DIFFERENTIAL AM APPLICATIONS INTERN procedure are i n the results section. BASIC METABOLIC PANEL Routine 07/08/2019 5:54 Re sults for this (7) AM APPLICATIONS INTERN procedure are i n the results section. TRANSFUSE LEUKO-REDUCED Routine 07/07/2019 4:57 RED BLOOD CELLS PM APPLICATIONS INTERN US PARACENTESIS Routine 07/07/2019 11:39 Results for this AM APPLICATIONS INTERN procedure are i n the results section. GLUCOSE PERITONEAL FLUID Routine 07/07/2019 11:28 Results for this AM APPLICATIONS INTERN procedure are i n the results section. BODY FLUID CULTURE + Routine 07/07/2019 11:27 Res ults for this GRAM STAIN AM APPLICATIONS INTERN procedure are i n the results section. BODY FLUID CELL COUNT Routine 07/07/2019 11:27 Re sults for this WITH DIFFERENTIAL AM APPLICATIONS INTERN procedure are in the results section. LACTATE DEHYDROGENASE Routine 07/07/2019 11:26 Re sults for this (LD), PERITONEAL FLUID AM APPLICATIONS INTERN proce dure are in the results section. PROTEIN, BODY FLUID Routine 07/07/2019 11:26 Resu lts for this AM APPLICATIONS INTERN procedure are i n the results section. ABORH, MANUAL MEHRAN 07/07/2019 7:55 Results fo r this AM APPLICATIONS INTERN procedure are i n the results section. TYPE AND SCREEN, MEHRAN 07/07/2019 7:55 Results for this AUTOMATED AM APPLICATIONS INTERN procedure are i n the results section. CBC W/PLT COUNT & AUTO Routine 07/07/2019 5:45 R esults for this DIFFERENTIAL AM APPLICATIONS INTERN procedure are i n the results section. TACROLIMUS LEVEL Routine 07/07/2019 5:45 Results for this AM APPLICATIONS INTERN procedure are i n the results section. MAGNESIUM Routine 07/07/2019 5:45 Results for this AM APPLICATIONS INTERN procedure are i n the results section. CBC W/PLT COUNT & AUTO Routine 07/07/2019 5:45 R esults for this DIFFERENTIAL AM APPLICATIONS INTERN procedure are i n the results section. BASIC METABOLIC PANEL Routine 07/07/2019 5:45 Re sults for this (7) AM APPLICATIONS INTERN procedure are i n the results section. PHOSPHORUS Routine 07/07/2019 5:45 Results for this AM APPLICATIONS INTERN procedure are i n the results section. HEPATIC FUNCTION PANEL Routine 07/07/2019 5:45 R esults for this AM APPLICATIONS INTERN procedure are i n the results section. BLOOD CULTURE Routine 07/06/2019 1:02 Results fo r this PM APPLICATIONS INTERN procedure are i n the results section. RESPIRATORY PANEL SLHS Routine 07/06/2019 12:34 R esults for this PM APPLICATIONS INTERN procedure are i n the results section. BLOOD CULTURE Routine 07/06/2019 12:15 Results fo r this PM APPLICATIONS INTERN procedure are i n the results section. CBC W/PLT COUNT & AUTO Routine 07/06/2019 6:14 R esults for this DIFFERENTIAL AM APPLICATIONS INTERN procedure are i n the results section. CBC W/PLT COUNT & AUTO Routine 07/06/2019 6:14 R esults for this DIFFERENTIAL AM APPLICATIONS INTERN procedure are i n the results section. PHOSPHORUS Routine 07/06/2019 6:14 Results for this AM APPLICATIONS INTERN procedure are i n the results section. MAGNESIUM Routine 07/06/2019 6:14 Results for this AM APPLICATIONS INTERN procedure are i n the results section. HEPATIC FUNCTION PANEL Routine 07/06/2019 6:14 R esults for this AM APPLICATIONS INTERN procedure are i n the results section. BASIC METABOLIC PANEL Routine 07/06/2019 6:14 Re sults for this (7) AM APPLICATIONS INTERN procedure are i n the results section. XR CHEST 2 VIEWS STAT 07/06/2019 2:11 Results for this AM APPLICATIONS INTERN procedure are i n the results section. CBC W/PLT COUNT & AUTO Routine 07/06/2019 1:39 R esults for this DIFFERENTIAL AM APPLICATIONS INTERN procedure are i n the results section. TACROLIMUS LEVEL Routine 07/06/2019 1:39 Results for this AM APPLICATIONS INTERN procedure are i n the results section. CBC W/PLT COUNT & AUTO Routine 07/06/2019 1:39 R esults for this DIFFERENTIAL AM APPLICATIONS INTERN procedure are i n the results section. PHOSPHORUS Routine 07/06/2019 1:39 Results for this AM APPLICATIONS INTERN procedure are i n the results section. MAGNESIUM Routine 07/06/2019 1:39 Results for this AM APPLICATIONS INTERN procedure are i n the results section. PROTHROMBIN TIME/INR Routine 07/06/2019 1:39 Res ults for this AM APPLICATIONS INTERN procedure are i n the results section. PT/APTT Routine 07/06/2019 1:39 Results for this AM APPLICATIONS INTERN procedure are i n the results section. HEPATIC FUNCTION PANEL Routine 07/06/2019 1:39 R esults for this AM APPLICATIONS INTERN procedure are i n the results section. BASIC METABOLIC PANEL Routine 07/06/2019 1:39 Re sults for this (7) AM APPLICATIONS INTERN procedure are i n the results section. CBC W/PLT COUNT & AUTO Routine 07/03/2019 10:57 Double Lung R esults for this DIFFERENTIAL AM APPLICATIONS INTERN Transplant procedure are i n the results section. TACROLIMUS LEVEL Routine 07/03/2019 10:57 Double Lung Results for this AM APPLICATIONS INTERN Transplant procedure are i n the results section. CBC W/PLT COUNT & AUTO Routine 07/03/2019 10:57 Double Lung R esults for this DIFFERENTIAL AM APPLICATIONS INTERN Transplant procedure are i n the results section. LACTATE DEHYDROGENASE Routine 07/03/2019 10:57 Double Lung Re sults for this (LDH) AM APPLICATIONS INTERN Transplant procedure are i n the results section. PHOSPHORUS Routine 07/03/2019 10:57 Double Lung Results for this AM APPLICATIONS INTERN Transplant procedure are i n the results section. MAGNESIUM Routine 07/03/2019 10:57 Double Lung Results for this AM APPLICATIONS INTERN Transplant procedure are i n the results section. COMPREHENSIVE METABOLIC Routine 07/03/2019 10:57 Double Lung Results for this PANEL AM APPLICATIONS INTERN Transplant procedure are i n the results section. US PARACENTESIS STAT 06/27/2019 11:52 Results for this AM APPLICATIONS INTERN procedure are i n the results section. CBC W/PLT COUNT & AUTO STAT 06/27/2019 10:21 R esults for this DIFFERENTIAL AM APPLICATIONS INTERN procedure are i n the results section. PROTHROMBIN TIME/INR STAT 06/27/2019 10:21 Res ults for this AM APPLICATIONS INTERN procedure are i n the results section. CBC W/PLT COUNT & AUTO STAT 06/27/2019 10:21 R esults for this DIFFERENTIAL AM APPLICATIONS INTERN procedure are i n the results section. BASIC METABOLIC PANEL STAT 06/27/2019 10:21 Re sults for this (7) AM APPLICATIONS INTERN procedure are i n the results section. after 06/07/2019 Results EBV-VCA antibody, IgG (05/13/2020 1:22 PM APPLICATIONS INTERN) Pathologist Sig nature EBV Ab VCA, IgG 21.5 (H) 0.0 - 17.9 U/mL [facility] 1 Comment: A second sample should be collected and tested no less than 2-4 weeks. Negat alvaro <18.0 Equiv ocal 18.0 - 21.9 Posit alvaro >21.9 Specimen Blood Narrative Performed At Performed at: 01 - [facility] [place] [facility] [address] [place], [place] [address] 143 Fiction Writer: Ortega Santiago MD, Phone: [phone] Performing Organization Address City/State/Zipcode Phone Number [facility] POC-Glucose meter (05/01/2020 8:19 AM APPLICATIONS INTERN)Only the most recent of25 results within the time period is included. POC-Glucose Meter 119 (H) 70 - 110 mg/dL [facility] Comment: [facility] : TESTED AT [facility] [address] [facility], [address] CENTER : Activities Aide/Combine Driver ID = [id number] for [place] Specimen Blood Performing Organization Address City/State/Zipcode Phone Number [place] [phone] [place], [place] [phone] CENTER CBC with platelet count + automated diff (05/01/2020 5:03 AM APPLICATIONS INTERN)Only the most recent of30 resultswithin the time period is included. Pathologist Sig nature WBC 4.1 3.5 - 10.5 [facility] K/L [facility] RBC 2.18 (L) 4.63 - 6.08 [facility] M/L [facility] Hemoglobin 7.0 (L) 13.7 - 17.5 [facility] GM/DL [facility] Hematocrit 21.5 (L) 40.1 - 51.0 % [facility] MCV 98.6 (H) 79.0 - 92.2 fL [facility] MCH 32.1 25.7 - 32.2 pg [facility] MCHC 32.6 32.3 - 36.5 [facility] GM/DL [facility] RDW 20.5 (H) 11.6 - 14.4 % [facility] Platelets 41 (L) 150 - 450 K/CU [facility] MM [facility] MPV 10.5 9.4 - 12.4 fL [facility] nRBC 0 0 - 0 /100 WBC [facility] % Neutros 81 % [facility] % Lymphs 11 % [facility] % Monos 5 % [facility] % Eos 1 % [facility] % Baso 0 % [facility] # Neutros 3.31 1.78 - 5.38 [facility] # Lymphs 0.46 (L) 1.32 - 3.57 [facility]/L [facility] # Monos 0.22 (L) 0.30 - 0.82 [facility] # Eos 0.02 (L) 0.04 - 0.54 [facility] # Baso 0.01 0.01 - 0.08 [facility] Immature 2 (H) 0 - 1 % [facility] Granulocytes-Relative [facility] Specimen Blood Performing Organization Address City/[facility]/Zipcode Phone Number [place] [phone] CENTER Tacrolimus level (05/01/2020 5:03 AM APPLICATIONS INTERN)Only the most recent of25 results within the time period is included. Pathologist Sig nature Tacrolimus Lvl 7.5 (L) 10.0 - 20.0 ng/mL [facility] Specimen Blood Narrative Performed At Activities Aide EL[facility]ETH - MARCELLE F [facility] Performing Organization Address City/[facility]/Zipcode Phone Number [address] [address] CENTER Prothrombin time/INR (05/01/2020 5:03 AM APPLICATIONS INTERN)Only the most recent of21 results within the time period is included. Pathologist Sig nature Protime 22.9 (H) 11.9 - 14.2 seconds [facility] INR 2.08 <=5.90 [facility] Specimen Blood Narrative Performed At Effective 11/26/2018: PT Reference Range [facility] Change New: 11.9-14.2 Previous: 11.7-14.7 RECOMMENDED COUMADIN/WARFARIN INR THERAPY RANGES STANDARD DOSE: 2.0-3.0 Includes: PROPHYLAXIS for venous thrombosis, systemic embolization; TREATMENT for venous thrombosis and/or pulmonary embolus. HIGH RISK: Target INR is 2.5-3.5 for patients wiht mechanical heart valves. Performing Organization Address [facility] Phone Number [address] [address] CENTER Phosphorus (05/01/2020 5:03 AM APPLICATIONS INTERN)Only the most recent of16 resultswithin the time period is included. Pathologist Sig nature Phosphorus 4.2 2.3 - 4.7 mg/dL [facility] Specimen Blood Narrative Performed At Activities Aide [facility] Performing Organization Address [facility] Phone Number [address] [address] CENTER B-type Natriuretic Factor (BNP) (05/01/2020 5:03 AM APPLICATIONS INTERN)Only the most recent of 10 resultswithin the time period is included. Pathologist Sig nature BNP 996 (H) 0 - 100 pg/mL [facility] Specimen Blood Narrative Performed At Activities Aide ID - [facility] Performing Organization Address [facility] Phone Number [address] [address] CENTER Magnesium (05/01/2020 5:03 AM APPLICATIONS INTERN)Only the most recent of19 resultswithin the time period is included. Pathologist Sig nature Magnesium 1.8 1.6 - 2.6 mg/dL [facility] Specimen Blood Narrative Performed At Activities Aide [facility] Performing Organization Address [facility] Phone Number [address] [address] CENTER Hepatic function panel (05/01/2020 5:03 AM APPLICATIONS INTERN)Only the most recent of23 resultswithin the time period is included. Pathologist Sig nature Protein, Total 3.5 (L) 6.0 - 8.3 gm/dL [facility] Albumin 2.6 (L) 3.5 - 5.0 g/dL [facility] Total Bilirubin 1.2 0.2 - 1.2 mg/dL [facility] Bilirubin, Direct 0.9 (H) 0.1 - 0.5 mg/dL [facility] Alkaline Phosphatase 129 40 - 150 U/L [facility] AST 22 5 - 34 U/L [facility] ALT 15 6 - 55 U/L [facility] Specimen Blood Narrative Performed At Activities Aide ID - EDASI [facility] Performing Organization Address City/State/Zipcode Phone Number [facility] [address] [place] [address] CENTER Basic Metabolic Panel (05/01/2020 5:03 AM APPLICATIONS INTERN)Only the most recent of34 results within the time period is included. Sodium 140 136 - 145 meq/L [facility] Potassium 4.1 3.5 - 5.1 meq/L [facility] Chloride 109 (H) 98 - 107 meq/L [facility] CO2 17 (L) 22 - 29 meq/L [facility] BUN 68 (H) 7 - 21 mg/dL [facility] Creatinine 4.47 (H) 0.57 - 1.25 [facility] mg/dL [facility] Glucose 120 (H) 70 - 105 mg/dL [facility] Calcium 7.7 (L) 8.4 - 10.2 [facility] mg/dL [facility] EGFR 13Comment: ESTIMATED mL/min/1.73 sq [facility] GFR IS NOT [facility] ACCURATE CENTER CREATININE CLEARANCE IN PREDICTING GLOMERULAR FILTRATION RATE. ESTIMATED GFR IS NOT APPLICABLE FOR DIALYSIS PATIENTS. Specimen Blood Narrative Performed At Activities Aide ELIZABETH - DIOGENES [facility] Performing Organization Address City/State/Zipcode Phone Number [facility] [address] [place] [address] CENTER HLA TYPING CII (04/29/2020 10:41 AM CDT) Pathologist Sig nature HLA-DR AG1 [address] [facility] HLA TESTING HLA-DR AG2 [address] [facility] HLA TESTING HLA-DR AG3-[address] [facility] HLA TESTING HLA-DR AG4-[address] [facility] HLA TESTING HLA-DQA1 AG 1-[address] [facility] HLA TESTING HLA-DQA1 AG 1-[address] [facility] HLA TESTING HLA-DQB1 AG 1-[address] [facility] HLA TESTING HLA-DQB1 AG 1-[address] [facility] HLA TESTING HLA-DPA1 AG 1-[address] [facility] HLA TESTING HLA-DPA1 AG 1-[address] [facility] HLA TESTING HLA-DPB1 AG 1-1 04:[address] [facility] HLA TESTING HLA-DPB1 AG 1-2 04:[address] [facility] HLA TESTING Specimen Blood Performing Organization Address City/[facility] Phone Number [facility] HLA TESTING ONE [facility] [place], [place]: [place] [address] [id number], CLIA#[id number] CAP#[id number] UNOS#[id number] HLA TYPING CI (04/29/2020 10:41 AM CDT) Pathologist Sig nature HLA-A AG1 [address] [facility] HLA TESTING HLA-A AG2 [address] [facility] HLA TESTING HLA-B AG1 [address] [facility] HLA TESTING HLA-B AG2 [address] [facility] HLA TESTING HLA-C AG1 [address] [facility] HLA TESTING HLA-C AG2 [address] [facility] HLA TESTING HLA-B BW1 [address] [facility] HLA TESTING HLA-B BW2 [address] [facility] HLA TESTING Specimen Blood Performing Organization Address City/[facility] Phone Number [facility] HLA TESTING ONE [facility] [place], [place]: [place] [address] [id number], CLIA#[id number] CAP#[id number] UNOS#[id number] FLOW PRA CLASS II WITH REFLEX TO ANTIBODY SPECIFICITY (04/29/2020 10:41 AM CDT) Only the most recent of2 resultswithin the time period is included. Pathologist Sig nature Flow Class II Percent [address] [facility] HLA TESTING Positive Specimen Blood Performing Organization Address City/[facility] Phone Number [facility] HLA TESTING ONE Juan R Delar[place], [place]: [place] [address] [id number], CLIA#[id number] CAP#[id number] UNOS#[id number] FLOW PRA CLASS I WITH REFLEX TO ANTIBODY SPECIFICITY (04/29/2020 10:41 AM CDT) Only the most recent of2 resultswithin the time period is included. Pathologist Sig nature Flow Class I Percent [address] [facility] HLA TESTING Positive Specimen Blood Performing Organization Address [facility] Phone Number [facility] HLA TESTING ONE [facility] [place], [place]: [place] [address] [id number], CLIA#[id number] CAP#[id number] UNOS#[id number] US pelvis with doppler (04/28/2020 11:15 AM CDT) Specimen Narrative Performed At FINAL REPORT [facility] TECHNIQUE: Grayscale, color Doppler, and spectral Doppler ultrasound of the distal aorta and bilateral iliac arteries. INDICATION: 64-year-old man for renal tr ansplant evaluation. COMPARISON: None. FINDINGS: Distal abdominal aorta is patent and gracie sures 1.6 cm. Common iliac arteries are patent and gracie sure 1.3 cm on the right and 1.1 cm on the left. External iliac arteries are patent and m easure 0.7 cm on the right and 0.7 cm on the left. Internal iliac arteries are patent and m easure 0.6 cm on the right and 0.5 cm on the left. Normal velocities and waveforms in the d istal aorta and visualized bilateral iliac arteries. Bilateral common, external, and internal iliac veins are patent. IMPRESSION: Unremarkable Doppler ultrasound of the b ilateral iliac vessels. Signed: Alyx Valentine MD Report Verified Date/Time: 04/28/2020 12:18:58 Procedure Note Interface, External Ris In - 04/28/2020 12:21 PM CDT FINAL REPORT TECHNIQUE: Grayscale, color Doppler, and spectral Doppler ultrasound of the distal aorta and bilateral iliac arteries. INDICATION: 64-year-old man for renal tr ansplant evaluation. COMPARISON: None. FINDINGS: Distal abdominal aorta is patent and gracie sures 1.6 cm. Common iliac arteries are patent and gracie sure 1.3 cm on the right and 1.1 cm on the left. External iliac arteries are patent and m easure 0.7 cm on the right and 0.7 cm on the left. Internal iliac arteries are patent and m easure 0.6 cm on the right and 0.5 cm on the left. Normal velocities and waveforms in the d istal aorta and visualized bilateral iliac arteries. Bilateral common, external, and internal iliac veins are patent. IMPRESSION: Unremarkable Doppler ultrasound of the b ilateral iliac vessels. Signed: Alyx Valentine MD Report Verified Date/Time: 04/28/2020 1 2:18:58 Performing Organization Address [facility] Phone Number GE RIS Prepare Leuko-Red RBC (04/27/2020 11:54 PM CDT)Only the most recent of2 results within the time period is included. Pathologist Sig nature CROSSMATCH COMPATIBLE SAFETRACE TX Unit ABO A Pos SAFETRACE TX UNIT NUMBER [id number] SAFETRACE TX Status TX_TIMEINCHART SAFETRACE TX Blood Bank Product RED BLOOD CELLS SAFETRACE TX PRODUCT CODE [id number] SAFETRACE TX CROSSMATCH COMPATIBLE SAFETRACE TX Unit ABO A Pos SAFETRACE TX UNIT NUMBER [id number] SAFETRACE TX Status TX_TIMEINCHART SAFETRACE TX Blood Bank Product RED BLOOD CELLS SAFETRACE TX PRODUCT CODE [id number] SAFETRACE TX Specimen Other Performing Organization Address [email or web address] Phone Number SAFETRACE TX Hemoglobin and hematocrit (04/27/2020 4:50 PM CDT) Pathologist Sig nature Hemoglobin 8.3 (L) 13.7 - 17.5 GM/DL [facility] Hematocrit 24.8 (L) 40.1 - 51.0 % [facility] Specimen Blood Narrative Performed At Activities Aide ID - [id number] [facility] Performing Organization Address City/State/Zipcode Phone Number [facility] [address] [place] [phone] CENTER POC ACTIVATED CLOTTING TIME (04/27/2020 4:49 PM CDT)Only the most recent of2 resultswithin the time period is included. Activated Clotting 147 sec [facility] Comment: [facility] : 74-137 seconds, Baseline CENTER : TESTED AT [address], [address] : Activities Aide/Combine Driver ID = [id number] for SEMAJ SUN Specimen Blood Performing Organization Address [facility] Hospital[facility] Phone Number [address] [phone] CENTER Transfuse Leuko-Red RBC (04/26/2020 8:54 PM CDT)Only the most recent of3 resultswithin the time period is included.US doppler (04/26/2020 4:07 PM CDT) Specimen Narrative Performed At FINAL REPORT [facility] TECHNIQUE: Grayscale ultrasound of the a bdomen with color Doppler and spectral Doppler ultrasound of the dominik l/hepatic vasculature. INDICATION: 64-year-old man with metabol ic acidosis, acute kidney injury, generalized weakness, fatigue, a nd hypervolemia. COMPARISON: Abdomen ultrasound 02/24/2020 , abdomen MRI 05/13/2019. FINDINGS: LIVER: Suboptimal evaluation of the left hepatic lobe secondary to patient agitation. Liver is normal in si ze with coarsened echotexture and nodular contour, consistent with cir rhosis. No definite focal lesion. HEPATIC VASCULATURE: Main portal vein is prominent and measures 1.4 cm in diameter. Portal veins are patent with normal directionality. Flow velocity in the main portal vein is within normal limits. Proper and right hepatic arteries are patent wi th normal resistive indices. Normal acceleration time in the proper h epatic artery. Left hepatic artery is not clearly visualized as this region was suboptimally evaluated secondary to patient agitation . Hepatic veins and confluence are patent. TIPS stent is pat ent with intrastent velocities which range between 109-154 c m/s. BILIARY: Gallbladder: Stones in the gallbladder. Gallbladder wall is mildly thickened up to 0.4 cm, nonspecific find ing in the setting of cirrhosis/ascites. No pericholecystic fl uid or gallbladder distention. Reported negative sonographi c Baltazar sign. Common bile duct measures 0.3 cm, within normal limits. No intrahepatic biliary ductal dilatation. PANCREAS: Visualized portions of the saenz creas are unremarkable. SPLEEN: Spleen is prominent and measures 16 cm. PERITONEUM: Small volume ascites in the right upper quadrant. KIDNEYS: Both kidneys are mildly echogen ic. Right kidney measures 8.4 x 4.2 x 3.7 cm with cortical thickness o f 1.1 cm. Left kidney measures 9.7 x 5 x 4.5 cm with cortical thickness of 1.2 cm. No hydronephrosis. No sonographically evide nt mass. MIDLINE VASCULATURE: Inferior vena cava is not clearly visualized due to overlying bowel gas. Maximum visualiz ed aortic diameter is 1.9 cm. Splenic artery and vein are patent. IMPRESSION: Suboptimal evaluation of the left hepati c lobe secondary to patient agitation. Cirrhosis. No definite focal liver lesio n. Left hepatic artery is not clearly visua lized. Otherwise, unremarkable Doppler evaluation of the p ortal and hepatic vasculature. Patent TIPS stent. Splenomegaly. Small volume ascites. Mildly echogenic kidneys, suggestive of medical renal disease. Cholelithiasis. Signed: Alyx Valentine MD Report Verified Date/Time: 04/26/2020 17:14:41 Procedure Note Interface, External Ris In - 04/26/2020 5:16 PM CDT FINAL REPORT TECHNIQUE: Grayscale ultrasound of the a bdomen with color Doppler and spectral Doppler ultrasound of the dominik l/hepatic vasculature. INDICATION: 64-year-old man with metabol ic acidosis, acute kidney injury, generalized weakness, fatigue, a nd hypervolemia. COMPARISON: Abdomen ultrasound 02/24/2020 , abdomen MRI 05/13/2019. FINDINGS: LIVER: Suboptimal evaluation of the left hepatic lobe secondary to patient agitation. Liver is normal in si ze with coarsened echotexture and nodular contour, consistent with cir rhosis. No definite focal lesion. HEPATIC VASCULATURE: Main portal vein is prominent and measures 1.4 cm in diameter. Portal veins are patent with normal directionality. Flow velocity in the main portal vein is within normal limits. Proper and right hepatic arteries are patent wi th normal resistive indices. Normal acceleration time in the proper h epatic artery. Left hepatic artery is not clearly visualized as this region was suboptimally evaluated secondary to patient agitation . Hepatic veins and confluence are patent. TIPS stent is pat ent with intrastent velocities which range between 109-154 c m/s. BILIARY: Gallbladder: Stones in the gallbladder. Gallbladder wall is mildly thickened up to 0.4 cm, nonspecific find ing in the setting of cirrhosis/ascites. No pericholecystic fl uid or gallbladder distention. Reported negative sonographi c Baltazar sign. Common bile duct measures 0.3 cm, within normal limits. No intrahepatic biliary ductal dilatation. PANCREAS: Visualized portions of the saenz creas are unremarkable. SPLEEN: Spleen is prominent and measures 16 cm. PERITONEUM: Small volume ascites in the right upper quadrant. KIDNEYS: Both kidneys are mildly echogen ic. Right kidney measures 8.4 x 4.2 x 3.7 cm with cortical thickness o f 1.1 cm. Left kidney measures 9.7 x 5 x 4.5 cm with cortical thickness of 1.2 cm. No hydronephrosis. No sonographically evide nt mass. MIDLINE VASCULATURE: Inferior vena cava is not clearly visualized due to overlying bowel gas. Maximum visualiz ed aortic diameter is 1.9 cm. Splenic artery and vein are patent. IMPRESSION: Suboptimal evaluation of the left hepati c lobe secondary to patient agitation. Cirrhosis. No definite focal liver lesio n. Left hepatic artery is not clearly visua lized. Otherwise, unremarkable Doppler evaluation of the p ortal and hepatic vasculature. Patent TIPS stent. Splenomegaly. Small volume ascites. Mildly echogenic kidneys, suggestive of medical renal disease. Cholelithiasis. Signed: Alyx Valentine MD Report Verified Date/Time: 04/26/2020 1 7:14:41 Performing Organization Address City/State/Zipcode Phone Number [facility] US abdomen complete (04/26/2020 4:07 PM CDT) Specimen Narrative Performed At FINAL REPORT [facility] TECHNIQUE: Grayscale ultrasound of the a bdomen with color Doppler and spectral Doppler ultrasound of the dominik l/hepatic vasculature. INDICATION: 64-year-old man with metabol ic acidosis, acute kidney injury, generalized weakness, fatigue, a nd hypervolemia. COMPARISON: Abdomen ultrasound 02/24/2020 , abdomen MRI 05/13/2019. FINDINGS: LIVER: Suboptimal evaluation of the left hepatic lobe secondary to patient agitation. Liver is normal in si ze with coarsened echotexture and nodular contour, consistent with cir rhosis. No definite focal lesion. HEPATIC VASCULATURE: Main portal vein is prominent and measures 1.4 cm in diameter. Portal veins are patent with normal directionality. Flow velocity in the main portal vein is within normal limits. Proper and right hepatic arteries are patent wi th normal resistive indices. Normal acceleration time in the proper h epatic artery. Left hepatic artery is not clearly visualized as this region was suboptimally evaluated secondary to patient agitation . Hepatic veins and confluence are patent. TIPS stent is pat ent with intrastent velocities which range between 109-154 c m/s. BILIARY: Gallbladder: Stones in the gallbladder. Gallbladder wall is mildly thickened up to 0.4 cm, nonspecific find ing in the setting of cirrhosis/ascites. No pericholecystic fl uid or gallbladder distention. Reported negative sonographi c Baltazar sign. Common bile duct measures 0.3 cm, within normal limits. No intrahepatic biliary ductal dilatation. PANCREAS: Visualized portions of the saenz creas are unremarkable. SPLEEN: Spleen is prominent and measures 16 cm. PERITONEUM: Small volume ascites in the right upper quadrant. KIDNEYS: Both kidneys are mildly echogen ic. Right kidney measures 8.4 x 4.2 x 3.7 cm with cortical thickness o f 1.1 cm. Left kidney measures 9.7 x 5 x 4.5 cm with cortical thickness of 1.2 cm. No hydronephrosis. No sonographically evide nt mass. MIDLINE VASCULATURE: Inferior vena cava is not clearly visualized due to overlying bowel gas. Maximum visualiz ed aortic diameter is 1.9 cm. Splenic artery and vein are patent. IMPRESSION: Suboptimal evaluation of the left hepati c lobe secondary to patient agitation. Cirrhosis. No definite focal liver lesio n. Left hepatic artery is not clearly visua lized. Otherwise, unremarkable Doppler evaluation of the p ortal and hepatic vasculature. Patent TIPS stent. Splenomegaly. Small volume ascites. Mildly echogenic kidneys, suggestive of medical renal disease. Cholelithiasis. Signed: Alyx Valentine MD Report Verified Date/Time: 04/26/2020 17:14:41 Procedure Note Interface, External Ris In - 04/26/2020 5:16 PM CDT FINAL REPORT TECHNIQUE: Grayscale ultrasound of the a bdomen with color Doppler and spectral Doppler ultrasound of the dominik l/hepatic vasculature. INDICATION: 64-year-old man with metabol ic acidosis, acute kidney injury, generalized weakness, fatigue, a nd hypervolemia. COMPARISON: Abdomen ultrasound 02/24/2020 , abdomen MRI 05/13/2019. FINDINGS: LIVER: Suboptimal evaluation of the left hepatic lobe secondary to patient agitation. Liver is normal in si ze with coarsened echotexture and nodular contour, consistent with cir rhosis. No definite focal lesion. HEPATIC VASCULATURE: Main portal vein is prominent and measures 1.4 cm in diameter. Portal veins are patent with normal directionality. Flow velocity in the main portal vein is within normal limits. Proper and right hepatic arteries are patent wi th normal resistive indices. Normal acceleration time in the proper h epatic artery. Left hepatic artery is not clearly visualized as this region was suboptimally evaluated secondary to patient agitation . Hepatic veins and confluence are patent. TIPS stent is pat ent with intrastent velocities which range between 109-154 c m/s. BILIARY: Gallbladder: Stones in the gallbladder. Gallbladder wall is mildly thickened up to 0.4 cm, nonspecific find ing in the setting of cirrhosis/ascites. No pericholecystic fl uid or gallbladder distention. Reported negative sonographi c Baltazar sign. Common bile duct measures 0.3 cm, within normal limits. No intrahepatic biliary ductal dilatation. PANCREAS: Visualized portions of the saenz creas are unremarkable. SPLEEN: Spleen is prominent and measures 16 cm. PERITONEUM: Small volume ascites in the right upper quadrant. KIDNEYS: Both kidneys are mildly echogen ic. Right kidney measures 8.4 x 4.2 x 3.7 cm with cortical thickness o f 1.1 cm. Left kidney measures 9.7 x 5 x 4.5 cm with cortical thickness of 1.2 cm. No hydronephrosis. No sonographically evide nt mass. MIDLINE VASCULATURE: Inferior vena cava is not clearly visualized due to overlying bowel gas. Maximum visualiz ed aortic diameter is 1.9 cm. Splenic artery and vein are patent. IMPRESSION: Suboptimal evaluation of the left hepati c lobe secondary to patient agitation. Cirrhosis. No definite focal liver lesio n. Left hepatic artery is not clearly visua lized. Otherwise, unremarkable Doppler evaluation of the p ortal and hepatic vasculature. Patent TIPS stent. Splenomegaly. Small volume ascites. Mildly echogenic kidneys, suggestive of medical renal disease. Cholelithiasis. Signed: Alyx Valentine MD Report Verified Date/Time: 04/26/2020 1 7:14:41 Performing Organization Address City/[facility] Phone Number [facility] Vitamin B12 and Folate (04/26/2020 9:05 AM CDT)Only the most recent of2 results within the time period is included. Pathologist Sig nature Vitamin B12 1,346 (H) 213 - 816 pg/mL [facility] Folate 9.20 >=7.00 ng/mL [facility] Specimen Blood Narrative Performed At Activities Aide ID - RM [facility] CENTER Performing Organization Address [facility] Phone Number [address] [id number] CENTER Haptoglobin (04/26/2020 9:05 AM CDT) Pathologist Sig nature Haptoglobin 15 14 - 258 mg/dL [facility] Specimen Blood Narrative Performed At Activities Aide ID - ROSIANG [facility] CENTER Performing Organization Address [facility] Phone Number [address] [address] CENTER Type and screen, automated (04/26/2020 8:06 AM CDT)Only the most recent of3 resultswithin the time period is included. Pathologist Sig nature Ab Scrn NEGATIVEComment: [facility] Echo 2 [facility] Specimen Blood Performing Organization Address [facility] Hospital[facility] Phone Number [address] [address] ABORH, manual (04/26/2020 8:06 AM CDT)Only the most recent of2 resultswithin the time period is included. Pathologist Sig nature ABO Grouping A [facility] DICAL DRISCOLL Rh Factor POS [facility] Specimen Blood Performing Organization Address City/State/Zipcode Phone Number [facility] [address] [place] [address] Manual Differential (04/26/2020 5:31 AM CDT)Only the most recent of4 results within the time period is included. % Neutros 71 % [facility] % Lymphs 26 % [facility] % Monos 1 % [facility] % Eos 1 % [facility] % Baso 1 % [facility] # Neutros 1.14 (L) 1.78 - 5.38 [facility] # Lymphs 0.42 (L) 1.32 - 3.57 [facility] # Monos 0.02 (L) 0.30 - 0.82 [facility] # Eos 0.02 (L) 0.04 - 0.54 [facility] # Baso 0.02 0.01 - 0.08 [facility] Total Counted 100 [facility] WBC Morphology Normal [facility] Platelet Morphology Normal [facility] Anisocytosis 2+ moderate [facility] Microcytes 2+ moderate [facility] Macrocytes 1+ few [facility] Poikilocytes 3+ many [facility] Ovalocytes 1+ few [facility] Acanthocytes 1+ few [facility] Artifact Present [facility] Platelet Conc Decreased [facility] Specimen Blood Narrative Performed At Activities Aide ID - [id number] [facility] Activities Aide ID - Sadia Parviz User comments: Slide comments: Performing Organization Address [facility] Phone Number [facility] [address] [place] [address] CENTER Reticulocyte count (04/26/2020 5:31 AM CDT) Pathologist Sig nature % Retic 3.2 (H) 0.5 - 1.8 % [facility] Specimen Blood Narrative Performed At Activities Aide ID - [id number] [facility] Performing Organization Address [facility] Phone Number [address] [address] CENTER Lactate dehydrogenase (LDH) (04/26/2020 5:31 AM CDT)Only the most recent of2 resultswithin the time period is included. Pathologist Sig nature LDH 156Comment: Specimen 125 - 220 U/L [facility] slightly hemolyzed [facility] Specimen Blood Narrative Performed At Activities Aide ID - ROSIANG [facility] Performing Organization Address [facility] Phone Number [address] [address] DRISCOLL Blood gas, venous (04/25/2020 9:40 PM CDT)Only the most recent of4 results within the time period is included. Pathologist Sig nature pH, Robbie 7.28 (L) 7.32 - 7.42 [facility] pCO2, Robbie 29 (L) 41 - 51 mm Hg [facility] pO2, Robbie 129 (H) 25 - 40 mm Hg [facility] O2 Sat, Robbie 98.4 (H) 40.0 - 70.0 % [facility] HCO3, Robbie 14 (L) 21 - 29 mmol/L [facility] Base Excess, Robbie -12.2 (L) -2.0 - 3.0 [facility] mmol/L [facility] Patient Temperature 36.0 [facility] FIO2 21.0 [facility] Specimen Blood Performing Organization Address City/[facility] Phone Number [address] [address] CENTER Iron, TIBC, % sat. (without ferritin) (04/25/2020 7:55 PM CDT)Only the most recent of2 resultswithin the time period is included. Pathologist Sig nature Iron 54.0 40.0 - 160.0 [facility] ug/dL [facility] TIBC 115 (L) 250 - 450 ug/dL [facility] Iron % Saturation 47 20 - 55 % [facility] Specimen Blood Narrative Performed At Activities Aide ID - DB [facility] Performing Organization Address [facility] Phone Number [address] [address] CENTER Vitamin D, 25-Hydroxy (04/25/2020 7:55 PM CDT)Only the most recent of3 results within the time period is included. Pathologist Sig nature Vitamin D 25-Hydroxy 8.1 6.6 - 49.9 ng/mL [facility] Specimen Blood Narrative Performed At Effective 04/10/2017: Reference Range Ch stella [facility] New: 6.6-49.9 ng/mL Previous: 13.0-47.8 ng/mL Recommended Vitamin D Target Range: 30.0-40.0 ng/mL Activities Aide ID - DB Performing Organization Address City/[facility] Phone Number [address] [address] CENTER Ferritin (04/25/2020 7:55 PM CDT)Only the most recent of2 resultswithin the time period is included. Pathologist Sig nature Ferritin 150.49 5.00 - 275.00 ng/mL [facility] Specimen Blood Narrative Performed At Activities Aide ID - BS [facility] Performing Organization Address City/State/Zipcode Phone Number [facility] [address] [place] [address] CENTER Toxicology screen, serum (04/25/2020 7:53 PM CDT) DRUG TEST, see note [facility] Comment: [facility] TOXICOLOGY, The following compounds were detected: URINE,[facility] Acetaminophen Hydromorphone Gabapentin Caffeine Hydrocodone THC-COOH For a list of compounds and limits of detection go to: http://education.Aidin/faq/WXE164 This test was developed and its analytical performance characteristics have been determined by [place]. It has not been cleared or approved by the U.S. Food and Drug Administration. This assay has been validated pursuant to the CLIA regulations and is used for clinical purposes. ACETONE ([facility]) 14 (H) mg/dL [facility] METHANOL([facility]) None Detected [facility] Isopropanol(Ques None Detected [facility] t) INC[facility]PORATED ETHANOL None Detected [facility] Comment: INCORPORATED Volatile Limit of Detectio n: 5 mg/dL Specimen Blood Narrative Performed At Performing Lab [facility] [address] [facility], [address] [facility] [place] [address] Rabia Sin MD, PhD Performing Organization Address City/[facility]/Zipcode Phone Number [facility] [place] [address] [facility]ORPORATED [id number] [address] phosphatidylethanol (04/25/2020 2:44 PM CDT)Only the most recent of2 results within the time period is included. Pathologist Sig nature Scan Result [facility] Specimen Blood - Left upper arm structure (body s tructure) Narrative Performed At This result has an attachment that is no t available. Performing Organization Address City/State/Zipcode Phone Number [facility] [address] [place] Lactic acid, venous (04/25/2020 5:51 AM CDT)Only the most recent of6 results within the time period is included. Pathologist Sig nature Lactate, Venous 1.08 0.50 - 2.20 mmol/L [facility] Specimen Blood Narrative Performed At Activities Aide ID - SERGIO Le [facility] Specimen slightly icteric Performing Organization Address [facility] Phone Number [address] [address] CENTER Fibrinogen (04/25/2020 5:51 AM CDT)Only the most recent of2 resultswithin the time period is included. Pathologist Sig nature Fibrinogen 282 225 - 434 mg/dl [facility] Specimen Blood Performing Organization Address [facility] Phone Number [address] [address] CENTER Lipase (04/25/2020 4:16 AM CDT)Only the most recent of3 resultswithin the time period is included. Pathologist Sig nature Lipase 222 (H) 8 - 78 U/L [facility] Specimen Blood Narrative Performed At Activities Aide ELIZABETH - SERGIO Le [facility] Specimen slightly icteric Performing Organization Address [facility] Phone Number [address] [address] CENTER Immunoglobulin A (IgA) (04/25/2020 4:16 AM CDT) Pathologist Sig nature IgA <5 (L) 63 - 484 mg/dL [facility] Specimen Blood Narrative Performed At Activities Aide ID - SERGIO [facility] Activities Aide ID - SERGIO Le Performing Organization Address [facility] Phone Number [address] [address] CENTER Immunoglobulin M (IgM) (04/25/2020 4:16 AM CDT) Pathologist Sig nature IgM <5 (L) 22 - 293 mg/dL [facility] Specimen Blood Narrative Performed At Activities Aide ELIZABETH Le [facility] Activities Aide ELIZABETH Le Performing Organization Address [facility] Phone Number [facility] [address] [place] [address] CENTER Immunoglobulin G (IgG) (04/25/2020 4:16 AM CDT) Pathologist Sig nature IgG <109 (L) 540-1,822 mg/dL [facility] Specimen Blood Narrative Performed At Activities Aide ID - SERGIO Le [facility] Activities Aide ELIZABETH Le Performing Organization Address [facility] Phone Number [address] [address] CENTER IgG subclasses panel (04/25/2020 4:15 AM CDT) Pathologist Sig nature IgG 1 60 (L) 382 - 929 mg/dL [facility] Igg 2 36 (L) 241 - 700 mg/dL [facility] IgG 3 3 (L) 22 - 178 mg/dL [facility] Igg 4 <0.5 (L) 4 - 86 mg/dL [facility] Igg,Serum 107 (L) 600 - 1540 mg/dL [facility] Specimen Blood Narrative Performed At Performing Lab [facility] [address] [place] [address] Chun Dunne MD, PhD, JEAN Performing Organization Address City/[facility] Phone Number [place] [address] INCORPORATED [address] [facility] XR abdomen / KUB 1 view (04/25/2020 1:19 AM CDT) Specimen Narrative Performed At FINAL REPORT GE RIS CLINICAL HISTORY: Abdominal pain COMPARISON: 04/22/2019 FINDINGS: Two supine views of the abdomen are subm itted. The abdominal bowel gas pattern is nonsp ecific but grossly unobstructed. There is no focus of gas d ilated large or small bowel. Centralization of the mid small bowel lo ops suggests underlying ascites. A TIPS shunt overlies the right upper qu adrant. There is no acute bony abnormality. Please note that a supine examination is insensitive in the detection of free intraperitoneal air. Signed: Karissa Haile MD Report Verified Date/Time: 04/25/2020 01:28:39 Procedure Note Interface, External Ris In - 04/25/2020 1:30 AM CDT FINAL REPORT CLINICAL HISTORY: Abdominal pain COMPARISON: 04/22/2019 FINDINGS: Two supine views of the abdomen are subm itted. The abdominal bowel gas pattern is nonsp ecific but grossly unobstructed. There is no focus of gas d ilated large or small bowel. Centralization of the mid small bowel lo ops suggests underlying ascites. A TIPS shunt overlies the right upper qu adrant. There is no acute bony abnormality. Please note that a supine examination is insensitive in the detection of free intraperitoneal air. Signed: Karissa Haile MD Report Verified Date/Time: 04/25/2020 0 1:28:39 Performing Organization Address City/State/Zipcode Phone Number [facility] US renal complete (04/25/2020 1:05 AM CDT)Only the most recent of2 results within the time period is included. Specimen Narrative Performed At FINAL REPORT [facility] Renal ultrasound dated 04/25/2020 CLINICAL HISTORY: Acute on chronic renal dysfunction COMPARISON: 02/23/2020 Comment: Real-time transabdominal jorge l ultrasound was performed. Right kidney measures 6.9 x 3.8 x 4.1 cm . Left kidney measures 8.1 x 4.4 x 3.7 cm. Right renal cortex measures 1.2 cm. Left renal cortex measures 1.2 cm. Renal parenchymal echogenicity: Elevated . No hydronephrosis, nephrolithiasis or so lid mass is seen. No cyst is identified on either kidney. Doppler ultrasound demonstrates a patent main renal artery and vein bilaterally. The bladder is unremarkable. Nodular hepatic margin consistent with c irrhosis. Moderate to large volume ascites. Impression: Elevated renal parenchymal echogenicity, a nonspecific finding suggesting medical renal disease. Cirrhosis and ascites. Signed: Karissa Haile MD Report Verified Date/Time: 04/25/2020 01:26:38 Procedure Note Interface, External Ris In - 04/25/2020 1:28 AM CDT FINAL REPORT Renal ultrasound dated 04/25/2020 CLINICAL HISTORY: Acute on chronic renal dysfunction COMPARISON: 02/23/2020 Comment: Real-time transabdominal renal ultrasound was performed. Right kidney measures 6.9 x 3.8 x 4.1 cm . Left kidney measures 8.1 x 4.4 x 3.7 cm. Right renal cortex measures 1.2 cm. Left renal cortex measures 1.2 cm. Renal parenchymal echogenicity: Elevated . No hydronephrosis, nephrolithiasis or so lid mass is seen. No cyst is identified on either kidney. Doppler ultrasound demonstrates a patent main renal artery and vein bilaterally. The bladder is unremarkable. Nodular hepatic margin consistent with c irrhosis. Moderate to large volume ascites. Impression: Elevated renal parenchymal echogenicity, a nonspecific finding suggesting medical renal disease. Cirrhosis and ascites. Signed: Karissa Haile MD Report Verified Date/Time: 04/25/2020 0 1:26:38 Performing Organization Address City/State/Zipcode Phone Number [facility] SARS-CoV2/RT-PCR (Symptomatic ONLY) (04/25/2020 12:05 AM CDT)Only the most recent of3 resultswithin the time period is included. SARS-COV2/RT-PCR Negative Not Detected, [facility] Negative, See [facility] external report CENTER for linked test SARS-COV-2 [facility] Specimen Other - Nasopharyngeal wall structure (b gibson structure) Narrative Performed At Negative results do not preclude SARS-CoV-2 [facility] infection and should not be used as the sole basis for patient management decisions. Negative results must be combined with clinical observations, patient history, and epidemiological information. A false negative result may occur if a specimen is improperly collected, transported or handled. The limit of detection for this assay is 250 copies/mL. This SARS CoV-2 test is a rapid, real-time RT-PCR test intended for the qualitative detection of nucleic acid from SARS-CoV-2 in a nasopharyngeal swab specimen collected from individuals suspected of COVID-19 by their healthcare provider. This test has not been Food and Drug Administration (FDA) cleared or approved and has been authorized by FDA under an Emergency Use Authorization (EUA). This EUA will be effective until the declaration that circumstances exist justifying the authorization of the emergency use of in vitro diagnostic tests for detection and/or diagnosis of COVID-19 is terminated under Section 564(b)(2) of the Act or the EUA is revoked under Section 564(g) of the Act. Fact Sheet for Healthcare Providers: https://www.[employer]Documents/Xpert%20Xpre ss%20SARS%20CoV-2/Fact%20Sheets/3023802%20SAR S-COV-2%20HEALTHCARE%20PROVIDERS%20FACT%20SHEE T.pdf Fact Sheet for Healthcare Patients: https://www.[employer]Documents/Xpert%20Xpre ss%20SARS%20CoV-2/Fact%20Sheets/3023801%20SAR S-COV-2%20PATIENT%20FACT%20SHEET.pdf Performing Laboratory: [address] [place] [address] Performing Organization Address City/State/Zipcode Phone Number [place] [phone] CENTER Urinalysis w/Microscopic + Reflex to Culture (04/24/2020 9:31 PM CDT) Pathologist Sig nature Color, UA Yellow [facility] Clarity, UA Clear [facility] Specific [place], UA 1.009 1.001 - 1.035 [facility] pH, UA 5.0 5.0 - 8.0 [facility] Protein, UA Negative Negative [facility] Glucose, UA Negative Negative [facility] Ketones, UA Negative Negative [facility] Bilirubin, UA Negative Negative [facility] Blood, UA Negative Negative [facility] Nitrite, UA Negative Negative [facility] Leukocytes, UA Negative Negative [facility] Urobilinogen, UA 0.2 0.2 - 1.0 mg/dL [facility] RBC, UA <1 /HPF [facility] WBC, UA 1 /HPF [facility] Bacteria, UA Rare [facility] Mucus Rare [facility] Hyaline Casts, UA 17 /LPF [facility] Specimen Source [facility] Specimen Urine Narrative Performed At Activities Aide ID - [auto] [facility] Activities Aide ID - tech Performing Organization Address City/[facility] Phone Number [address] [address] [place] Urea Nitrogen, random urine (04/24/2020 9:31 PM CDT)Only the most recent of2 resultswithin the time period is included. Pathologist Sig nature Urea Nitrogen, Ur 367 mg/dL [facility] Specimen Urine Narrative Performed At Reference Range: No Normals [facility] Activities Aide ID - DB Performing Organization Address City/[facility] Phone Number [address] [address] [place] Sodium, random urine (04/24/2020 9:31 PM CDT)Only the most recent of3 results within the time period is included. Pathologist Sig nature Sodium Urine 53 meq/L [facility] Specimen Urine Narrative Performed At Reference Range: No Normals [facility] Activities Aide ID - DB Performing Organization Address City/State/Zipcode Phone Number [address] [address] CENTER Protein, random urine (04/24/2020 9:31 PM CDT)Only the most recent of2 results within the time period is included. Pathologist Sig nature Protein, Urine <7 0 - 14 mg/dL [facility] Specimen Urine Narrative Performed At Activities Aide ID - DB [facility] Performing Organization Address City/[facility]/Zipcode Phone Number [address] [address] CENTER Potassium, random urine (04/24/2020 9:31 PM CDT)Only the most recent of2 resultswithin the time period is included. Pathologist Sig nature Potassium Urine 21.7 meq/L [facility] Specimen Urine Narrative Performed At Reference Range: No Normals [facility] Activities Aide ID - DB Performing Organization Address [facility] Phone Number [address] [address] CENTER Creatinine, random urine (04/24/2020 9:31 PM CDT)Only the most recent of3 resultswithin the time period is included. Pathologist Sig nature Creatinine, Ur 85.6 mg/dL [facility] [place] Specimen Urine Narrative Performed At Reference Range: No Normals [facility] Activities Aide ID - DB Performing Organization Address City/[facility] Phone Number [address] [address] CENTER Chloride, random urine (04/24/2020 9:31 PM CDT)Only the most recent of2 results within the time period is included. Pathologist Sig nature ChlorideUr 67 meq/L [facility] Specimen Urine Narrative Performed At Reference Range: No Normals [facility] Activities Aide ID - DB Performing Organization Address City/State/Zipcode Phone Number [facility] [address] [place] [address] CENTER ECG 12 lead (04/24/2020 9:04 PM CDT)Only the most recent of6 resultswithin the time period is included. Specimen Narrative Performed At Ventricular Rate 66 BPM GE MUSE Atrial Rate 66 BPM P-R Interval 134 ms QRS Duration 94 ms Q-T Interval 442 ms QTC Calculation(Bazett) 463 ms P [place] 68 degrees R [place] 48 degrees T [place] 226 degrees Sinus rhythm with Premature atrial compl exes Nonspecific T wave abnormality Abnormal ECG When compared with ECG of 24-APR-2020 21 :00, Sinus rhythm has replaced Junctional rhy thm Nonspecific T wave abnormality has replaced inverted T waves in Anterior leads Nonspecific T wave abnormality, worse in Lateral leads Confirmed by MD BOONE JOSEPH P ([id number]) on 04/25/20 6:38:14 AM Procedure Note Interface, External Ris In - 04/25/2020 6:38 AM CDT Ventricular Rate 66 BPM Atrial Rate 66 BPM P-R Interval 134 ms QRS Duration 94 ms Q-T Interval 442 ms QTC Calculation(Bazett) 463 ms P [place] 68 degrees R [place] 48 degrees T [place] 226 degrees Sinus rhythm with Premature atrial compl exes Nonspecific T wave abnormality Abnormal ECG When compared with ECG of 24-APR-2020 21 :00, Sinus rhythm has replaced Junctional rhy thm Nonspecific T wave abnormality has repla yuri inverted T waves in Anterior leads Nonspecific T wave abnormality, worse in Lateral leads Confirmed by MD BOONE JOSEPH P ([id number]) on 04/25/2020 6:38:14 AM Performing Organization Address City/[facility] Phone Number [facility] XR chest 2 views (04/24/2020 6:36 PM CDT)Only the most recent of4 resultswithin the time period is included. Specimen Narrative Performed At FINAL REPORT [facility] RAD, CHEST, 2 VIEWS CLINICAL HISTORY: FATIGUE TECHNIQUE: 2 views of the chest COMPARISON: April 06, 2020 IMPRESSION: Development of interstitial opacities wi th peripheral Josr B lines suggesting mild pulmonary edema but pneu monitis should be excluded clinically. Blunted costophrenic angles may represent trace effusions, pleural thickening or atelect asis. No pneumothorax. No focal lung consolidation. Cardiomediasti nal silhouette is stable. Stable osseous structures. Signed: Jed Guadarrama MD Report Verified Date/Time: 04/24/2020 19:10:21 Procedure Note Interface, External Ris In - 04/24/2020 7:13 PM CDT FINAL REPORT RAD, CHEST, 2 VIEWS CLINICAL HISTORY: FATIGUE TECHNIQUE: 2 views of the chest COMPARISON: April 06, 2020 IMPRESSION: Development of interstitial opacities wi th peripheral Josr B lines suggesting mild pulmonary edema but pneu monitis should be excluded clinically. Blunted costophrenic angles may represent trace effusions, pleural thickening or atelect asis. No pneumothorax. No focal lung consolidation. Cardiomediasti nal silhouette is stable. Stable osseous structures. Signed: Jed Guadarrama MD Report Verified Date/Time: 04/24/2020 1 9:10:21 Performing Organization Address [facility] Phone Number GE RIS Procalcitonin (04/24/2020 6:33 PM CDT) Pathologist Sig nature Procalcitonin 5.20 (H) <0.05 ng/mL [facility] Specimen Blood Narrative Performed At SEPSIS RISK (ng/mL) [facility] Low: 0.05-0.50 Intermediate: 0.51-2.00 High: >=2.01 Performing Organization Address [facility] Phone Number [address] [address] CENTER TSH/Free T4 If Indicated (04/24/2020 6:33 PM CDT) Pathologist Sig nature TSH 5.602 (H) 0.350 - 4.940 uIU/mL [facility] Specimen Blood Narrative Performed At Activities Aide ID - DB [facility] Performing Organization Address [facility] Phone Number [address] [address] CENTER T4, free (04/24/2020 6:33 PM CDT) Pathologist Sig nature Free T4 0.55 (L) 0.70 - 1.48 ng/dL [facility] Specimen Blood Narrative Performed At Activities Aide ID - DB [facility] Performing Organization Address City/[facility]/Zipcode Phone Number [address] [address] [place] Troponin I (not available at [facility] [place]) (04/24/2020 6:22 PM CDT)Only the most recent of2 resultswithin the time period is included. Pathologist Sig nature Troponin I <0.01 0.00 - 0.03 ng/mL [facility] Specimen Blood Narrative Performed At Troponin I (TnI) levels must be interpreted [facility] in the context of the presenting symptoms and the clinical findings. Elevated TnI levels indicate myocardial damage, but are not specific for ischemic heart disease. Elevated TnI levels are seen in patients with other cardiac conditions (including myocarditis and congestive heart failure), and slight TnI elevations occur in patients with other conditions, including sepsis, renal failure, acidosis, acute neurological disease, and persistent tachyarrhythmia. Activities Aide ID - DB Performing Organization Address [facility] Phone Number [address] [address] [place] Blood Culture #2 (04/24/2020 6:22 PM CDT)Only the most recent of8 resultswithin the time period is included. Pathologist Sig nature Result No growth in 5 days [facility] Specimen Blood Performing Organization Address City/[facility]/Zipcode Phone Number [address] [address] CENTER aPTT (04/24/2020 6:22 PM CDT)Only the most recent of7 resultswithin the time period is included. Pathologist Sig nature PTT 40.9 (H) 22.5 - 36.0 seconds [facility] Specimen Blood Performing Organization Address City/[facility]/Zipcode Phone Number [facility] [address] [place] [address] CENTER Comprehensive metabolic panel (04/24/2020 6:22 PM CDT)Only the most recent of5 resultswithin the time period is included. Protein, Total 3.9 (L) 6.0 - 8.3 [facility] gm/dL [facility] Albumin 2.7 (L) 3.5 - 5.0 [facility] g/dL [facility] Alkaline 196 (H) 40 - 150 U/L [facility] Phosphatase [facility] Total Bilirubin 2.5 (H) 0.2 - 1.2 [facility] mg/dL [facility] Sodium 136 136 - 145 [facility] meq/L [facility] Potassium 5.4 (H) 3.5 - 5.1 [facility] meq/L [facility] Chloride 109 (H) 98 - 107 [facility] meq/L [facility] CO2 12 (L) 22 - 29 meq/L [facility] BUN 86 (H) 7 - 21 mg/dL [facility] Creatinine 5.06 (H) 0.57 - 1.25 [facility] mg/dL [facility] Glucose 105 70 - 105 [facility] mg/dL [facility] Calcium 7.8 (L) 8.4 - 10.2 [facility] mg/dL [facility] AST 22 5 - 34 U/L [facility] ALT 17 6 - 55 U/L [facility] EGFR 12Comment: mL/min/1.73 [facility] ESTIMATED GFR IS sq [facility] NOT ACCURATE [facility] CREATININE CLEARANCE IN PREDICTING GLOMERULAR FILTRATION RATE. ESTIMATED GFR IS NOT APPLICABLE FOR DIALYSIS PATIENTS. Specimen Blood Narrative Performed At Activities Aide ID - DB [facility] Specimen slightly icteric Performing Organization Address City/State/Zipcode Phone Number [facility] [address] [place] [address] CENTER ECG/EKG Interpretation (04/24/2020 5:38 PM CDT)Only the most recent of2 results within the time period is included. Narrative Performed At Vahid Aguiar MD 04/24/2020 9 :30 PM ECG/EKG Interpretation Date/Time: 04/24/2020 9:30 PM Performed by: Vahid Aguiar MD Authorized by: Vahid Aguiar MD Comments: Sinus rhythm with PACs, rate 66, NV 134, QRS 84, QTc 463, normal axis, no significant ST elevation, ST depressions, T w ave inversions. No QRS prolongation or peak T waves. EKG-SCANNED (04/24/2020)Only the most recent of2 resultswithin the time period is included. Narrative Performed At This result has an attachment that is no t available. Ordered by an unspecified provider. CARDIAC CATH REPORT - SCAN (04/24/2020) Narrative Performed At This result has an attachment that is no t available. Ordered by an unspecified provider. NM myocardial perfusion SPECT, pharm(Lexiscan) (04/19/2020 3:30 PM CDT) Specimen Narrative Performed At FINAL REPORT [facility] PROCEDURE: Rest/Stress MYOCARDIA L PERFUSION SPECT with regadenoson\\XA9\\ CPT CODE: 43920 INDICATION: Preoperative evaluat ion for liver transplant PROTOCOL: 10.4 mCi of Tc-99m ses tamibi was injected iv at rest, and SPECT (tomographic) images were obta ined. Also, 28.8 mCi of Tc-99m sestamibi was injected iv at expe cted peak pharmacologic effect, and gated SPECT images were obta ined. PRELIMINARY STRESS TEST DATA FROM [facility]: Pharmacologic stress was by 10-second iv infusion of 0.4 mg of regadenoson. Radiotracer was injected 30 seconds after start of stress. Heart rate was 85 beats/min at r est and 90 beats/min (56 % of MPHR) at tracer injection. BP was 117/57 mmHg at rest and 114/53 mmHg at tracer injection. Stress was stopped for predetermined endpoint. The patient experienced no symptoms; lamar atment was not required. Preliminary ECG evaluation revealed sinu s rhythm at rest and no ischemic changes with stress. (Final ECG interpretation and other stress and monitoring data are reported separately by Cardiology.) IMAGING FINDINGS: Study quality is good. Im ages obtained after rest and stress injections show normal L V activity. LV and RV volumes appear normal. Gated images obtained at rest after stress show normal LV wall motion and thickening. QGS LVEF is 55%. IMPRESSION: 1. Normal study. 2. Appropriate pharm acologic stress. 3. Normal myocardial perfusion. 4. Nor mal resting LV function. 5. Normal extracardiac tracer distribution. 6. No prior study. Signed: Geoff Edwards MD Report Verified Date/Time: 04/19/2020 15:55:39 Reading Location: [address] Reading Room Procedure Note Interface, External Ris In - 04/19/2020 3:57 PM CDT FINAL REPORT PROCEDURE: Rest/Stress MYOCARDIAL P ERFUSION SPECT with regadenoson\\XA9\\ CPT CODE: 36155 INDICATION: Preoperative evaluation for liver transplant PROTOCOL: 10.4 mCi of Tc-99m sestam ibi was injected iv at rest, and SPECT (tomographic) images were obta ined. Also, 28.8 mCi of Tc-99m sestamibi was injected iv at expe cted peak pharmacologic effect, and gated SPECT images were obta ined. PRELIMINARY STRESS TEST DATA FROM [facility]: Pharmacologic stress was by 10-second iv infusion of 0.4 mg of regadenoson. Radiotracer was injected 30 seconds after start of stress. Heart rate was 85 beats/min at r est and 90 beats/min (56 % of MPHR) at tracer injection. BP was 117/57 mmHg at rest and 114/53 mmHg at tracer injection. Stress was stopped for predetermined endpoint. The patient experienced no symptoms; lamar atment was not required. Preliminary ECG evaluation revealed sinu s rhythm at rest and no ischemic changes with stress. (Final ECG interpretation and other stress and monitoring data are reported separately by Cardiology.) IMAGING FINDINGS: Study quality i s good. Images obtained after rest and stress injections show normal L V activity. LV and RV volumes appear normal. Gated images obtained at rest after stress show normal LV wall motion and thickening. QGS LVEF is 55%. IMPRESSION: 1. Normal study. 2. Appro priate pharmacologic stress. 3. Normal myocardial perfusion. 4. Norm al resting LV function. 5. Normal extracardiac tracer distribution. 6. No prior study. Signed: Geoff Edwards MD Report Verified Date/Time: 04/19/2020 1 5:55:39 Reading Location: [address] Reading Room Performing Organization Address City/[facility] Phone Number GE RIS Treadmill tolerance(Non-Nuclear Treadmill) (04/19/2020 11:26 AM CDT) Specimen Narrative Performed At Protocol Name REGADENOSON GE MUSE Time In Exercise Phase 00:01:00 Max. Systolic BP 114 mmHg Max Diastolic BP 53 mmHg Max Heart Rate 90 BPM Max Predicted Heart Rate 158 BPM Reason For Termination Predetermined end point Reason for Test pre-transplant liver stevenson luation Target HR Formula (220 - Age)*100% Arrhythmias none Resting ECG Normal sinus rhythm ST Changes No Significant Changes Overall Impression Indeterminate due to pharmacological stress Chest Pain none HR Response To Exercise BP Response To Exercise LASIX lactulose Confirmed by fellow Ricky Kwong ([id number]) on 04/19/2020 1:29:04 PM Confirmed by MD Webster Mahboob ([id number]) on 04/21/2020 3: 31:05 PM Procedure Note Interface, External Ris In - 04/21/2020 3:31 PM CDT Protocol Name REGADENOSON Time In Exercise Phase 00:01:00 Max. Systolic BP 114 mmHg Max Diastolic BP 53 mmHg Max Heart Rate 90 BPM Max Predicted Heart Rate 158 BPM Reason For Termination Predetermined end point Reason for Test pre-transplant liver stevenson luation Target HR Formula (220 - Age)*100% Arrhythmias none Resting ECG Normal sinus rhythm ST Changes No Significant Changes Overall Impression Indeterminate due to pharmacological stress Chest Pain none HR Response To Exercise BP Response To Exercise LASIX lactulose Confirmed by fellow Ricky Kwong ([id number]) on 04/19/2020 1:29:04 PM Confirmed by MD Webster Mahboob ([id number]) on 04/21/2020 3:31:05 PM Performing Organization Address City/[facility] Phone Number GE MUSE Carotid doppler bilateral (04/07/2020 9:05 AM CDT) [facility] nature Ejection Fraction [facility] Specimen Impressions Performed At Right Impression [facility] 1. There is <50% diameter reduction (approximately 23% by 2-D measurement) in the internal carotid artery with a peak velocity of 82.5 cm/sec and heterogeneous plaque. 2. The external carotid artery is within normal limits. 3. There is non-occluding plaque in the common carotid artery. 4. The vertebral artery flow is antegrade and normal. 5. The subclavian artery is within normal limits where visualized. Left Impression 1. There is <50% diameter reduction (approximately 24% by 2-D measurement) in the internal carotid artery with a peak velocity of 73.3 cm/sec and heterogeneous plaque. 2. The external carotid artery is within normal limits. 3. There is non-occluding plaque in the common carotid artery. 4. The vertebral artery flow is antegrade and normal. 5. The subclavian artery is within normal limits where visualized. Conclusions Summary Carotid duplex scanning and color flow imaging were performed bilaterally. The arteries were adequately visualized. The bilateral internal carotid arteries had <50% hemodynamically insignificant stenosis (approximately 23% by 2-D measurement on the right, approximately 24% by 2-D measurement on the left) with heterogeneous plaque. The vertebral artery flow was antegrade and normal bilaterally. The subclavian arteries were patent with normal flow bilaterally where visualize d. Signature Velocities are measured in cm/s ; Diameters are measured in cm Carotid Right Measurements + +----+----+-----+ +---- + + !Location !PSV !EDV !Angle!%Stenosis 2D!%Stenosis Doppler!Tortuosity ! + +----+----+-----+ +---- + + !Prox CCA !70.9!14.1!60 ! ! ! ! + +----+----+-----+ +---- + + !Dist CCA !65.1!17.6!60 ! ! ! ! + +----+----+-----+ +---- + + !Prox ICA !46.4!21.2!60 ! ! ! ! + +----+----+-----+ +---- + + !Dist ICA !82.5!29.9!60 ! ! ! ! + +----+----+-----+ +---- + + !Prox ECA !110 !18.1!60 ! ! ! ! + +----+----+-----+ +---- + + !Vertebral !48.7!16.4!60 ! ! ! ! + +----+----+-----+ +---- + + !Prox Subclavian!100 !0 !60 ! ! ! ! + +----+----+-----+ +---- + + - There is antegrade vertebral flow noted on the right side. - Additional Measurements:ICAPSV/CCAPSV 1.27.ICAEDV/CCAEDV 2.12. Carotid Left Measurements + +----+----+-----+ +---- + + !Location !PSV !EDV !Angle!%Stenosis 2D!%Stenosis Doppler!Tortuosity ! + +----+----+-----+ +---- + + !Prox CCA !101 !29.1!60 ! ! ! ! + +----+----+-----+ +---- + + !Dist CCA !75.6!18.8!60 ! ! ! ! + +----+----+-----+ +---- + + !Prox ICA !56.3!22.3!60 ! ! ! ! + +----+----+-----+ +---- + + !Dist ICA !73.3!27.6!60 ! ! ! ! + +----+----+-----+ +---- + + !Prox ECA !81.5!13.5!60 ! ! ! ! + +----+----+-----+ +---- + + !Vertebral !53.9!26.4!60 ! ! ! ! + +----+----+-----+ +---- + + !Prox Subclavian!129 !0 !60 ! ! ! ! + +----+----+-----+ +---- + + - There is antegrade vertebral flow noted on the left side. - Additional Measurements:ICAPSV/CCAPSV 0.97.ICAEDV/CCAEDV 0.95. Narrative Performed At PV LAB - Carotid Duplex Study [facility] Demographics Patient Name JOEL DESOUZA Date of Study 04/07/2020 MELLY Age 64 Visit Number [id number] Gender Male Accession Number [id number] Date of 1955 Referring Mary Ann Palmer Room Number Physician Guide Dog Mobility Instructor Irma Romero T Interpreting Cori Kidd, Physician Procedure Type of Study: Cerebral: Carotid, CAROTID DOPPLER, SOCO ATERAL. Indications for Study:Liver transplant e valuation. Patient Status:Routine. Study Location:Vascular Lab. Technical Quality:Adequate visualization . Risk Factors History of Disease + +----+ + !Diagnosis !Date!Comments ! + +----+ + !History/Risk Factors: ! !h/o lung transplant, cirrhosis, ckd ! + +----+ + Procedure Note Interface, External Ris In - 04/08/2020 7:34 AM CDT [facility] - Carotid Duplex Study Demographics Patient Name JOEL DESOUZA Da te of Study 04/07/2020 MELLY Ag e 64 Visit Number [id number] Ge nder Male Accession Number [id number] Da te of 1955 Referring Mary Ann Esquivel om Number Physician Guide Dog Mobility Instructor Irma Romero RVT In terpreting Cori Kidd, Ph ysician Procedure Type of Study: Cerebral: Carotid, CAROTID DOPPLER, SOCO ATERAL. Indications for Study:Liver transplant e valuation. Patient Status:Routine. Study Location:Vascular Lab. Technical Quality:Adequate visualization . Risk Factors History of Disease + +----+--------- + !Diagnosis !Date!Comments ! + +----+--------- + !History/Risk Factors: ! !h/o lung transplant, cirrhosis, ckd ! + +----+--------- + Impressions Right Impression 1. There is <50% diameter reduction (manas roximately 23% by 2-D measurement) in the internal carotid artery with a pe ak velocity of 82.5 cm/sec and heterogeneous plaque. 2. The external carotid artery is within normal limits. 3. There is non-occluding plaque in the common carotid artery. 4. The vertebral artery flow is antegrad e and normal. 5. The subclavian artery is within conchita l limits where visualized. Left Impression 1. There is <50% diameter reduction (manas roximately 24% by 2-D measurement) in the internal carotid artery with a pe ak velocity of 73.3 cm/sec and heterogeneous plaque. 2. The external carotid artery is within normal limits. 3. There is non-occluding plaque in the common carotid artery. 4. The vertebral artery flow is antegrad e and normal. 5. The subclavian artery is within conchita l limits where visualized. Conclusions Summary Carotid duplex scanning and color flow imaging were performed bilaterally. The arteries were adequately visualized . The bilateral internal carotid arteries had <50% hemodynamically insig nificant stenosis (approximately 23% by 2-D measurement on the right, ap proximately 24% by 2-D measurement on the left) with heterogeneous plaque. The vertebral artery flow was antegrade and normal bilaterally. The s ubclavian arteries were patent with normal flow bilaterally where visualize d. Signature Velocities are measured in cm/s ; Diamet ers are measured in cm Carotid Right Measurements + +----+----+-----+------- -----+ + + !Location !PSV !EDV !Angle!%Stenos is 2D!%Stenosis Doppler!Tortuosity ! + +----+----+-----+------- -----+ + + !Prox CCA !70.9!14.1!60 ! ! ! ! + +----+----+-----+------- -----+ + + !Dist CCA !65.1!17.6!60 ! ! ! ! + +----+----+-----+------- -----+ + + !Prox ICA !46.4!21.2!60 ! ! ! ! + +----+----+-----+------- -----+ + + !Dist ICA !82.5!29.9!60 ! ! ! ! + +----+----+-----+------- -----+ + + !Prox ECA !110 !18.1!60 ! ! ! ! + +----+----+-----+------- -----+ + + !Vertebral !48.7!16.4!60 ! ! ! ! + +----+----+-----+------- -----+ + + !Prox Subclavian!100 !0 !60 ! ! ! ! + +----+----+-----+------- -----+ + + - There is antegrade vertebral flow no abdullahi on the right side. - Additional Measurements:ICAPSV/CCAPS V 1.27.ICAEDV/CCAEDV 2.12. Carotid Left Measurements + +----+----+-----+------- -----+ + + !Location !PSV !EDV !Angle!%Stenos is 2D!%Stenosis Doppler!Tortuosity ! + +----+----+-----+------- -----+ + + !Prox CCA !101 !29.1!60 ! ! ! ! + +----+----+-----+------- -----+ + + !Dist CCA !75.6!18.8!60 ! ! ! ! + +----+----+-----+------- -----+ + + !Prox ICA !56.3!22.3!60 ! ! ! ! + +----+----+-----+------- -----+ + + !Dist ICA !73.3!27.6!60 ! ! ! ! + +----+----+-----+------- -----+ + + !Prox ECA !81.5!13.5!60 ! ! ! ! + +----+----+-----+------- -----+ + + !Vertebral !53.9!26.4!60 ! ! ! ! + +----+----+-----+------- -----+ + + !Prox Subclavian!129 !0 !60 ! ! ! ! + +----+----+-----+------- -----+ + + - There is antegrade vertebral flow no abdullahi on the left side. - Additional Measurements:ICAPSV/CCAPS V 0.97.ICAEDV/CCAEDV 0.95. Performing Organization Address City/State/Zipcode Phone Number [facility] XR mandible 4 views min (04/06/2020 12:40 PM CDT) Specimen Narrative Performed At FINAL REPORT [facility] Clinical history: Liver transplant evalu ation TECHNIQUE: Five views of the mandible we re obtained IMPRESSION: None FINDINGS: There is no evidence for acute fracture or dislocation. No focal lytic or blastic abnormality is identifi ed. Dental hardware is noted. No significant periodontal lucency is id entified to suggest periodontal disease. The surrounding sof t tissues are unremarkable. IMPRESSION: No acute radiographic abnormality identi fied within the mandible. Signed: Javed Paez MD Report Verified Date/Time: 04/06/2020 13:44:20 Procedure Note Interface, External Ris In - 04/06/2020 1:46 PM CDT FINAL REPORT Clinical history: Liver transplant evalu ation TECHNIQUE: Five views of the mandible we re obtained IMPRESSION: None FINDINGS: There is no evidence for acute fracture or dislocation. No focal lytic or blastic abnormality is identifi ed. Dental hardware is noted. No significant periodontal lucency is id entified to suggest periodontal disease. The surrounding sof t tissues are unremarkable. IMPRESSION: No acute radiographic abnormality identi fied within the mandible. Signed: Javed Paez MD Report Verified Date/Time: 04/06/2020 1 3:44:20 Performing Organization Address City/State/Zipcode Phone Number [facility] XR dxa bone density study (04/06/2020 12:39 PM CDT) Specimen Narrative Performed At FINAL REPORT [facility] Bone mineral density study. CLINICAL INDICATION: Liver transplant ev aluation. COMPARISON: 06/05/2018. FINDINGS: Bone densitometry of the femoral necks a nd lumbar spine was performed. The left femoral neck bone mineral densi ty is 0.482 gm/cm2, the T-score is -4.5, and the Z-score is -2.9 . Left femoral neck bone mineral density is decreased 29.8% from the prior examination from 06/05/2018. The right femoral neck total bone minera l density is 0.495 gm/cm2, the T-score is -4.4, and the Z-score is -2.8. Right femoral neck bone mineral density is decreased 23.7% from the prior examination from 06/05/2018. The lumbar spine total bone mineral dens ity is 0.744 gm/cm2, the T-score is -4.0, and the Z-score is -2.6 . Lumbar spine bone mineral density is decreased 15.2% from the prio r examination from 06/05/2018. IMPRESSION: 1. WHO classification of osteoporosis fo r the left femoral neck with a high risk of fracture. 2. WHO classification of osteoporosis fo r the right femoral neck with a high risk of fracture. 3. WHO classification of osteoporosis fo r the lumbar spine with a high risk of fracture. Signed: Javed Paez MD Report Verified Date/Time: 04/06/2020 12:40:47 Procedure Note Interface, External Ris In - 04/06/2020 12:42 PM CDT FINAL REPORT Bone mineral density study. CLINICAL INDICATION: Liver transplant ev aluation. COMPARISON: 06/05/2018. FINDINGS: Bone densitometry of the femoral necks a nd lumbar spine was performed. The left femoral neck bone mineral densi ty is 0.482 gm/cm2, the T-score is -4.5, and the Z-score is -2.9 . Left femoral neck bone mineral density is decreased 29.8% from the prior examination from 06/05/2018. The right femoral neck total bone minera l density is 0.495 gm/cm2, the T-score is -4.4, and the Z-score is -2.8. Right femoral neck bone mineral density is decreased 23.7% from the prior examination from 06/05/2018. The lumbar spine total bone mineral dens ity is 0.744 gm/cm2, the T-score is -4.0, and the Z-score is -2.6 . Lumbar spine bone mineral density is decreased 15.2% from the prio r examination from 06/05/2018. IMPRESSION: 1. WHO classification of osteoporosis fo r the left femoral neck with a high risk of fracture. 2. WHO classification of osteoporosis fo r the right femoral neck with a high risk of fracture. 3. WHO classification of osteoporosis fo r the lumbar spine with a high risk of fracture. Signed: Javed Paez MD Report Verified Date/Time: 04/06/2020 1 2:40:47 Performing Organization Address City/State/Zipcode Phone Number GE [facility] Alpha-1 antitrypsin Mutation Analysis (04/06/2020 7:38 AM CDT) A1 Antitrypsin Mut SEE BELOW [facility] Comment: INCORPORATED RESULT: NO MUTATION DETECTED Interpretation: DNA testing indicates that this indivi dual is negative for the PI*Z and PI*S alleles in the qqdqd-3-lrtesalhytd ( PI) gene (genotype PI*M/PI*M). This negative result does not rule out the presence of other mutations within the PI gene or other causes of alpha- 1-antitrypsin deficiency. Therefore, these results should be interpr eted in the context of the individual's clinical presentation, and other labo ratory tests such as measurement of serum wkpjh-6-urermfdxtkg levels. Laboratory testing supervised and results monito red by Dianna Kendrick, Ph.D., FACMG, HCLD, CGMBS. Axkgw-7-cftswhccnet deficiency is a relatively common autosomal recessive condition. The two most common deficiency alleles in the butbw-4-crbovoqqbzb gene (protease inhibitor locus, PI) are designated PI*Z and PI*S, and the normal allele is designated PI*M. The PI*Z/PI*Z, PI*S/PI*Z, and PI*S/PI*S genotypes associated with decreased serum PI levels that are equivalent to approximately 10-20%, 35-40%, and 50-60% of normal, respectively. The PI*Z/PI*Z and PI*S/PI*Z genotypes are reported to be associated with an increased risk of liver disease in childhood, and chronic obstructive pulmonary disease (COPD) and emphysema in adult life. The PI*M/PI*Z, and PI*M/PI*S genotypes are also associated with decreased serum PI levels but these levels, and the PI levels associated with the PI*S/PI*S genotype, are apparently adequate to protect the lungs in the vast majority of individuals. Individuals with the PI*M/PI*Z genotype may have decreased pulmonary function, and may be at increased risk for COPD, especially if they smoke. It should be noted that serum mcuyb-7-fbttcqqbjwm levels can be induced by a wide variety of conditions that include , infection, numerous inflammatory conditions, cancer, and liver disease. Levels of sotpj-0-azrlxettpfj may be reduced by other conditions. Therefore, immunological and functional determinations of serum djcrp-0-dropzeagooa levels may not correlate with the individual's PI genotype. The PI*Z, PI*S, and PI*M alleles are detected by multiplex polymerase chain reaction (PCR) amplification of specific regions of the PI gene, followed by restriction enzyme digestion and capillary electrophoresis. This assay does not test for the presence of other mutations within the idxqx-7-egflwnqhzkz gene or non-genetic causes of cknuq-2-xmgfxvpupep deficiency. Since genetic variation and other factors can affect the accuracy of direct mutation testing, these results should be interpreted in light of clinical and familial data. This test was developed and its analytical performance characteristics have been determined by [facility]. It has not been cleared or approved by FDA. This assay has been validated pursuant to the CLIA regulations and is used for clini luzmaria purposes. Clinical NOT GIVEN [facility] Indication INCORPORATED Referring NOT GIVEN [facility] Physician INCORPORATED Specimen Blood Narrative Performed At Performing Lab [facility] E[facility] [address] [place] [address] Cuhn Dunne MD, PhD, JEAN Performing Organization Address City/State/Zipcode Phone Number [place] [address] INCORPORATED [address] [facility] Drug screen, urine, transplant (04/06/2020 7:38 AM CDT) Specimen Urine Narrative Performed At This result has an attachment that is no t available. Performing Organization Address City/State/[facility] Phone Number [place] [phone] [place] [address] T Spot TB (04/06/2020 7:38 AM CDT) Pathologist Sig nature T-Spot TB Negative [facility] Neg Ctrl Spot Count 0 [facility] Panel A Spot 1 [facility] Panel B Spot 1 [facility] Pos Ctrl Spot Ct 0 [facility] Scan Result [facility] Specimen Blood Narrative Performed At This result has an attachment that is no t available. Performing Organization Address City/[facility]/Zipcode Phone Number [facility] [phone]ATOR[address] Calcium, Ionized (04/06/2020 7:38 AM CDT) Pathologist Sig [facility] Calcium, Ion 1.15 1.12 - 1.27 mmol/L [facility] pH, Blood 7.33 [facility] Specimen Blood Performing Organization Address City/State/Zipcode Phone Number [facility] [address] [place] [address] CENTER Cytomegalovirus antibody, IgM (04/06/2020 7:38 AM CDT) Pathologist Sig nature CMV IGM Negative Negative, Equivocal [facility] Specimen Blood Narrative Performed At CMV IgM Result Interpretation: [facility] </= 0.8 Al Negative 0.9-1.0 Al Equivocal >/= 1.1 Al Positive Performing Organization Address City/[facility]/Zipcode Phone Number [address] [address] [place] Cryptococcal antigen (04/06/2020 7:38 AM CDT) Cryptococcal Negative Negative, [facility] Antigen, Serum Interference [facility] Specimen Blood Performing Organization Address [facility] Phone Number [address] [address] [place] Zinc (04/06/2020 7:38 AM CDT) Zinc 46 (L) 60 - 130 [facility] Comment: mcg/dL INCORPORATED This test was developed and its analytical performance characteristics have been determined by [facility]. It has not been cleared or approved by [facility] FDA. This assay has been validated pursuant to the CLI A regulations and is used for clinical purposes. Specimen Blood Narrative Performed At Performing Lab [facility] *[facility], [id number] [place] [phone] Nallely Flores MD Performing Organization Address City/[facility] Phone Number [facility] [place] [address] INCORPORATED [address] [facility] EBV-VCA antibody, IgM (04/06/2020 7:38 AM CDT) ELINA JOYNER VIRAL Negative Negative, Equivocal [facility] CAPSID ANTIGEN IGM [facility] Specimen Blood Narrative Performed At Elina Joyner Viral Capsid Antigen IgM Result [facility] Interpretation: </= 0.8 Al Negative 0.9-1.0 Al Equivocal >/= 1.1 Al Positive Performing Organization Address [facility] Phone Number [address] [address] [place] Rubella antibody, IgG (04/06/2020 7:38 AM CDT) Pathologist Sig nature Rubella IgG Quant 9.0 <8.0 IU/mL [facility] Specimen Blood Narrative Performed At Rubella IgG Result Interpretation: [facility] </= 7.0 IU/mL Negative - Presumed non-immune 8.0 - 9.9 IU/mL Equivocal >= 10.0 IU/mL Positive - Presumed immune Performing Organization Address City/[facility]/Zipcode Phone Number [facility] [address] [place] [address] [place] RPR (04/06/2020 7:38 AM CDT) Pathologist Sig nature RPR Nonreactive Nonreactive [facility] Specimen Blood Performing Organization Address City/[facility]/Zipcode Phone Number [address] [address] [place] Urinalysis w/Microscopic (04/06/2020 7:38 AM CDT)Only the most recent of2 resultswithin the time period is included. Pathologist Sig nature Color, UA Yellow [facility] Clarity, UA Clear [facility] Specific [place], UA 1.014 1.001 - 1.035 [facility] pH, UA 5.0 5.0 - 8.0 [facility] Protein, UA Negative Negative [facility] Glucose, UA Negative Negative [facility] Ketones, UA Negative Negative [facility] Bilirubin, UA Negative Negative [facility] Blood, UA Negative Negative [facility] Nitrite, UA Negative Negative [facility] Leukocytes, UA Negative Negative [facility] Urobilinogen, UA 0.2 0.2 - 1.0 mg/dL [facility] RBC, UA 0 /HPF [facility] WBC, UA 2 /HPF [facility] Squam Epithel, UA <1 /HPF [facility] Hyaline Casts, UA 3 /LPF [facility] Specimen Source [facility] Specimen Urine Narrative Performed At Activities Aide ID - [auto] [facility] Activities Aide ID - tech Performing Organization Address City/[facility] Phone Number [facility] [address] [place] [address] CENTER Varicella zoster antibody, IgG (04/06/2020 7:38 AM CDT) Pathologist Sig [facility] Varicella IgG 0.9 [facility] DICAL [place] Specimen Blood Narrative Performed At VARICELLA ZOSTER RESULT INTERPRETATIONS: [facility] <=0.8 Al Nonreactive: Presumed non-immune to VZV 0.9-1.0 Al Equivocal >=1.1 Al Reactive: Presumed immune to VZV Performing Organization Address [facility] Phone Number [address] [address] CENTER Uric acid (04/06/2020 7:38 AM CDT) Pathologist Sig [facility] Uric Acid 15.2 (H) 2.6 - 7.2 mg/dL [facility] Specimen Blood Narrative Performed At Activities Aide ID - GENARO Hui [facility] Performing Organization Address City/[facility]/Zipcode Phone Number [address] [address] [place] T3 (04/06/2020 7:38 AM CDT) Pathologist Sig nature T3, Total 36 (L) 48 - 159 ng/dL [facility] Specimen Blood Narrative Performed At This result has an attachment that is no t available. Performing Organization Address City/[facility]/Zipcode Phone Number [facility] [address] [place], [place] Gamma Glutamyl Transferase (GGT) (04/06/2020 7:38 AM CDT)Only the most recent of2 resultswithin the time period is included. Pathologist Sig nature GGT 46 9 - 64 U/L [facility] Specimen Blood Narrative Performed At Activities Aide ID - GENARO C [facility] ICAL [place] Performing Organization Address [facility] Phone Number [address] [address] CENTER Bilirubin, direct (04/06/2020 7:38 AM CDT)Only the most recent of2 results within the time period is included. Pathologist Sig nature Bilirubin, Direct 0.9 (H) 0.1 - 0.5 mg/dL [facility] Specimen Blood Narrative Performed At Activities Aide ID - GENARO C [facility] Performing Organization Address [facility] Phone Number [address] [address] [place] Lipid panel (04/06/2020 7:38 AM CDT) Pathologist Sig nature Triglycerides 56 mg/dL [facility] DICAL CENTER Cholesterol 100 mg/dL [facility] ICAL [place] HDL 34 mg/dL [facility] ICAL [place] LDL Calculated 55 mg/dL [facility] EDICAL [place] Specimen Blood Narrative Performed At Triglyceride Reference Range: [facility] Low Risk <150 Borderline 150-199 High Risk 200-499 Very High Risk >=500 Cholesterol Reference Range: Low Risk <200 Borderline 200-239 High Risk >240 HDL Cholesterol Reference Range: Low Risk >=60 High Risk <40 LDL Cholesterol Reference Range: Optimal <100 Near Optimal 100-129 Borderline 130-159 High 160-189 Very High >=190 Activities Aide ID - GENARO C Performing Organization Address [facility] Phone Number [address] [address] CENTER Gtmbh-3-Vlwsizbujna (AAT) Phenotype (04/06/2020 7:37 AM CDT) A-1 Antitryp SEE BELOW [facility] Phenotyp Comment: INCORPORATED THIS PATIENT'S PIWJW-4-GMWUCXYCHYE PHENOTYPE IS PI*MM. 90% of normal individuals have the MM phenotype, with normal quantitative AAT levels. Many phenotypic patterns have been described, including deficiency states with F, S, Z, or other alleles. As a gene ral estimation, compared to M allele of 100% of normal X-7-Dqlcpnlycfw protein, the S allele produces approximately 60% and the Z allele 20%. For example, a n MS phenotype would have about 80% of normal L-2-Ifgqrstwkzp protein level , a 50% contribution from the M allele and 30% from the S allele. A ZZ phen otype would have about 20% of normal levels, a 10% contribution from each Z g roni. The F allele has normal I-9-Guqshkrrbjq levels, but the kinetics of elastase inhibition is not as efficient as an M allele product; F alleles should be considered functionally mildly deficient. Other variants are iden tifiable by phenotypic analysis. These include CM, DP, EM, GM, IS, LM, M1M2, M3M3, MP, MT, XX, MY, and M1N. I, P, T and null alleles are considered delet erious. C, D, E, G, L, M1, M2, M3, X and Y alleles are generally considered n ormal variants. The MZ-Vargas phenotype is a normal variant; care should be taken to avoid confusion with the deficient MZ phenotype. Specimen Blood Narrative Performed At Performing Lab [facility] [address] [place] [address] Chun Dunne MD, PhD, JEAN Performing Organization Address City/[facility]/Zipcode Phone Number [facility] [place] [address] INCORPORATED [address] [facility] Hepatitis A antibody, IgG ([facility] Lab ONLY) (04/06/2020 7:37 AM CDT) Pathologist Sig nature Hep A IgG Reactive (A) Nonreactive [facility] Specimen Blood Narrative Performed At Activities Aide ELIZABETH Hui [facility] Performing Organization Address City/[facility]/Zipcode Phone Number [facility] [address] [facility] [place] [address] CENTER Asume-3-hrtfftbptlq Quant and Phenotype (04/06/2020 7:37 AM CDT) Specimen Blood Performing Organization Address City/[facility]/Zipcode Phone Number [facility] [address] INCORPORATED [address] [facility] HIV-1 Antigen with HIV-1/2 Antibody (04/06/2020 7:37 AM CDT) Pathologist Sig nature HIV-1 Antigen with Nonreactive Nonreactive [facility] HIV 1&2 Antibody [facility] Specimen Blood Narrative Performed At Activities Aide ID - GENARO C [facility] Performing Organization Address City/[facility]/Zipcode Phone Number [address] [phone] [place] Hepatitis C antibody (04/06/2020 7:37 AM CDT) Pathologist Sig nature Hepatitis C Ab Nonreactive Nonreactive [facility] Specimen Blood Narrative Performed At Activities Aide ID - GENARO C [facility] Performing Organization Address City/[facility] Phone Number [address] [address] [place] Actin (Smooth Muscle) Antibody, IgG (04/06/2020 7:37 AM CDT) Anti-Smooth <20 See Note: U [facility] Comment: INCORPORATED Reference Range: <20 NEGATIVE > OR = 20 POSITIVE Antibodies recognizing actin are the main component of smooth muscle antibodies associated with autoimmune liver disease. Actin antibodies are found in approximately 75% of patients with autoimmune hepatitis (AIH) type 1, approximately 65% of patients with autoimmune cholangitis, approximately 30% of patients with primary biliary cirrhosis, and approximately 2% of healthy people. High values are closely correlated with AIH type 1. Specimen Blood Narrative Performed At Performing Lab [facility] EZ [facility] [place] [address] [place] [address] Chun Dunne MD, PhD, JEAN Performing Organization Address City/[facility]/Zipcode Phone Number [place] [address] INCORPORATED [address] [facility] Htnza-7-xlvyhjnauzi (04/06/2020 7:37 AM CDT) Pathologist Sig nature Fnleg-1-Etxskuinjdt 133 83 - 199 mg/dL [facility] Specimen Blood Narrative Performed At Performing Lab [facility] [place] [address] [place] [address] Chun Dunne MD, PhD, JEAN Performing Organization Address City/[facility] Phone Number [place] [address] INCORPORATED [address] [facility] Hepatitis A antibody, IgM (04/06/2020 7:37 AM CDT) Pathologist Sig nature Hep A IgM Nonreactive Nonreactive [facility] Specimen Blood Narrative Performed At Activities Aide ELIZABETH - GENARO Ez [facility] Performing Organization Address City/[facility] Phone Number [facility] [address] [place] [address] CENTER Carbohydrate antigen 19-9 (CA 19-9) (04/06/2020 7:37 AM CDT) CA 19-9 33 <34 U/mL [facility] Comment: INCORPORATED This test was performed using the Siemens Chemilumines cent method. Values obtained from different assay methods cannot be used interchangeably. CA19-9 levels, regardless of value, should not be inte rpreted as absolute evidence of the presence or absence of disease. Specimen Blood Narrative Performed At Performing Lab [facility] [place] [address] [place] [address] Chun Dunne MD, PhD, JEAN Performing Organization Address [facility] Phone Number [place] [address] INCORPORATED [address] [facility] Ceruloplasmin (04/06/2020 7:37 AM CDT) Pathologist Sig nature Ceruloplasmin 14 (L) 18 - 36 mg/dL [facility] Specimen Blood Narrative Performed At Performing Lab [facility] *YOJANA [facility], [address] [id number] Nallely Flores MD Performing Organization Address City/[facility] Phone Number [place] [address] INCORPORATED [address] [facility] Rubeola antibody IgG (04/06/2020 7:37 AM CDT) Rubeola Ab, Igg 43.20 AU/mL [facility] Comment: INCORPORATED REFERENCE RANGE: <13.50 AU/mL AU/mL Interpretation <13.50 Negative 13.50-16.49 Equivocal >16.49 Positive A positive result indicates that the patient has antibody to measles virus. It does not differentiate between an active or past infection. The clinical diagnosis must be interpreted in conjunction with clinical signs and symptoms of the patient. For additional information, please refer to http://education.[employer]/faq/FWL934 (This link is being provided for informational/ educational purposes only.) Specimen Blood Narrative Performed At Performing Lab [facility] *QDID [facility] [address] [place] [address] Luz Kiser MD Performing Organization Address City/[facility] Phone Number [place] [address] INCORPORATED [address] [facility] Hepatitis B core antibody, IgM (04/06/2020 7:37 AM CDT) Pathologist Sig nature Hep B C IgM Nonreactive Nonreactive [facility] Specimen Blood Narrative Performed At Activities Aide ID - GENARO C [facility]ENTER Performing Organization Address City/State/Zipcode Phone Number [address] [address] CENTER Hepatitis B core antibody, total (04/06/2020 7:37 AM CDT) Pathologist Sig nature Hep B Core Total Ab Nonreactive Nonreactive [facility] Specimen Blood Narrative Performed At Activities Aide ID - GENARO C [facility] Performing Organization Address City/[facility]/Zipcode Phone Number [address], [place] [phone] [place] Hepatitis B surface antibody (04/06/2020 7:37 AM CDT) Pathologist Sig nature Hep B S Ab 60.7 (H) <8.0 mIU/mL [facility] Specimen Blood Narrative Performed At Activities Aide ID - GENARO Hui [facility] Performing Organization Address [facility]/Zipcode Phone Number [address] [phone] [place] Hepatitis B surface antigen (04/06/2020 7:37 AM CDT) Pathologist Sig nature HBsAg Screen Nonreactive Nonreactive [facility] Specimen Blood Narrative Performed At Specimen is considered negative for HBsAg. [facility] Performing Organization Address [facility]/Zipcode Phone Number [address] [address] [place] Testosterone, free + total (04/06/2020 7:37 AM CDT) Testosterone 15 (L) 250 - 1100 [facility] Comment: ng/dL INCORPORATED Men with clinically significant hypogonadal symptoms and testosterone values repeatedly in the range of the 200-300 ng/dL or less, may benefit from testosterone treatment after adequate risk and benefits counseling. For additional information, please refer to http://education.[employer].Yidio/faq/Total TestosteroneLCMSMS (This link is being provided for informational/e ducational purposes only.) This test was developed and its analytical performance characteristics have been determined by [employer]. It has not been cleared or approved by [facility] FDA. This assay has been validated pursuant to the CLI A regulations and is used for clinical purposes. Testosterone, Free 1.9 (L) 35.0 - [facility] Comment: 155.0 INCORPORATED pg/mL This test was developed and its analytical performance characteristics have been determined by [facility]. It has not been cleared or approved by [facility] FDA. This assay has been validated pursuant to the CLI A regulations and is used for clinical purposes. Specimen Blood Narrative Performed At Performing Lab [facility] *YOJANA [facility], [address] [place] [address] T Sandra ARGUETA Performing Organization Address City/[facility] Phone Number [place] [address] INCORPORATED [address] [facility] Mumps antibody, IgG (04/06/2020 7:37 AM CDT) Mumps Ab Igg <9.00 (L) AU/mL [facility] Comment: INCORPORATED REFERENCE RANGE: <9.00 AU/mL Interpretation <9.00 Negative 9.00-10.99 Equivocal >10.99 Positive A positive result indicates that the patient has antibody to mumps virus. It does not differentiate between an active or past infection. The clinical diagnosis must be interpreted in conjunction with clinical signs and symptoms of the patient. Specimen Blood Narrative Performed At Performing Lab [facility] *QDID [employer] [facility] [address] [place] [address] H Sumi Kiser MD Performing Organization Address [facility] Phone Number [place] [address] INCORPORATED [address] [facility] Transferrin (04/06/2020 7:37 AM CDT) Pathologist Sig nature Transferrin 134 (L) 174 - 382 mg/dL [facility] Specimen Blood Narrative Performed At Activities Aide ID - GENARO C [facility] Performing Organization Address City/[facility] Phone Number [address] [address] CENTER TSH (04/06/2020 7:37 AM CDT) Pathologist Sig nature TSH 4.994 (H) 0.350 - 4.940 uIU/mL [facility] Specimen Blood Narrative Performed At Activities Aide ID - GENARO C [facility] CENTER Performing Organization Address City/[facility]/Zipcode Phone Number [address] [address] CENTER T4 (04/06/2020 7:37 AM CDT) Pathologist Sig nature T4, Total 3.8 (L) 4.9 - 11.7 ug/dL [facility] Specimen Blood Narrative Performed At Activities Aide ID - GENARO Hui [facility] Performing Organization Address City/[facility] Phone Number [address] [address] CENTER PSA (04/06/2020 7:37 AM CDT) Pathologist Sig [facility] PSA 0.0 0.0 - 4.0 ng/mL [facility] Specimen Blood Narrative Performed At Activities Aide ID - GENARO Hui [facility] Performing Organization Address City/[facility] Phone Number [address] [address] CENTER Carcinoembryonic Antigen (CEA) (04/06/2020 7:37 AM CDT) Pathologist Sig [facility] CEA, SERUM 3.6 0.0 - 5.0 ng/mL [facility] Specimen Blood Narrative Performed At Activities Aide ID - GENARO Hui [facility] Performing Organization Address City/[facility] Phone Number [address] [address] CENTER Ethanol (04/06/2020 7:37 AM CDT) Pathologist Sig [facility] Ethanol Lvl <10 <=10 mg/dL [facility] Specimen Blood Narrative Performed At Activities Aide ID - GENARO Hui [facility] Performing Organization Address City/[facility] Phone Number [address] [address] CENTER Alpha fetoprotein (AFP), tumor marker (03/09/2020 2:31 PM CDT)Only the most recent of2 resultswithin the time period is included. Pathologist Sig [facility] Alpha-Fetoprotein 3.0 <10.0 ng/mL [facility] Specimen Blood Narrative Performed At Activities Aide ID - BS [facility] Performing Organization Address City/State/Zipcode Phone Number [facility] [address] [place] [address] CENTER PULMONARY FUNCTION - SCAN (02/25/2020 1:40 PM CDT) Narrative Performed At This result has an attachment that is no t available. CBC (Hemogram only) (02/25/2020 5:52 AM CDT) Pathologist Sig nature WBC 2.8 (L) 3.5 - 10.5 K/L [facility] RBC 2.21 (L) 4.63 - 6.08 M/L [facility] Hemoglobin 7.3 (L) 13.7 - 17.5 GM/DL [facility] Hematocrit 22.4 (L) 40.1 - 51.0 % [facility] MCV 101.4 (H) 79.0 - 92.2 fL [facility] MCH 33.0 (H) 25.7 - 32.2 pg [facility] MCHC 32.6 32.3 - 36.5 GM/DL [facility] RDW 17.2 (H) 11.6 - 14.4 % [facility] Platelets 48 (L) 150 - 450 K/CU MM [facility] MPV 10.6 9.4 - 12.4 fL [facility] nRBC 0 0 - 0 /100 WBC [facility] Specimen Blood Performing Organization Address City/State/Zipcode Phone Number [facility] [address] [place] [address] CENTER PTH, intact (02/25/2020 5:52 AM CDT) Pathologist Sig nature PTH 425.2 (H) 8.5 - 72.5 pg/mL [facility] Specimen Blood Narrative Performed At Activities Aide ID - NTP [facility] CENTER Performing Organization Address City/State/Zipcode Phone Number [facility] [address] [place] [address] CENTER US abdominal with doppler (02/24/2020 10:56 PM CDT) Specimen Narrative Performed At FINAL REPORT [facility] Exam: U/S, ABDOMINAL, WITH DOPPLER Clinical History: HCC screening in cir rhotic patient and TIPS evaluation (rule out thrombosis) Discussion: Sonographic evaluation of the abdomen wa s performed with Doppler. Comparison is made to right upper quadra nt ultrasound with Doppler 08/25/2019 Liver: 9.7 cm in length at the right midclavicular line. Cirrhotic morphology. 9 x 8 x 8 mm cyst in the r ight hepatic lobe. TIPS stent noted. Main portal vein diameter 1.6 cm. Biliary tree: Common duct 6 mm. No i ntrahepatic biliary ductal dilatation. Gallbladder: Contracted. Cholelithiasi s. No wall thickening. No pericholecystic fluid. Negative sonograp hic Baltazar's sign. Pancreas: Partially obscured by bowel ga s but the visualized portions are unremarkable. Ascites: Small right abdominal ascites Spleen: 15.8 cm in length. Kidneys: Right kidney 8.5 x 4 x 3.5 c m with cortical thickness of 0.9 cm. Left kidney 9.3 x 4.5 x 4 cm w ith cortical thickness of 1.3 cm. Normal cortical echogenicity. N o shadowing calculus, no hydronephrosis. IVC/Aorta: Segments partially seen. Unremarkable. Color and spectral Doppler evaluation of the hepatic vasculature: The main portal vein and branches are patent and demonstrate appropriate directional flow. The peak systolic [place] in the main portal vein is 26 cm/s. The TIPS is patent without a velocity gradient to suggest thrombosis or stenosis. The peak systoli c velocities in the proximal, mid and distal TIPS are 120 cm/s, 118 cm /s and 99 cm/s respectively. The proper, right and left hepatic arter ies are patent with normal waveforms. The resistive indices in the proper, right and left hepatic arteries are 0.7, 0.8 and 0.8 re spectively. The hepatic confluence, main hepatic vein and branch es are patent with normal waveforms. The splenic vein at the pancr eatic head and tail are patent with normal waveforms. Impression: Cirrhosis and evidence of portal hyperte nsion. Small liver cyst. Please note that liver protocol CT or MRI is more sensitive for the evaluation of HCC. Patent TIPS. No evidence of thrombosis. Elevated resistive indices in the right and left hepatic arteries. Cholelithiasis without sonographic evide nce of acute cholecystitis. Small abdominal ascites. Signed: David Yee MD Report Verified Date/Time: 02/24/2020 23:24:17 Procedure Note Interface, External Ris In - 02/24/2020 11:26 PM CDT FINAL REPORT Exam: U/S, ABDOMINAL, WITH DOPPLER Clinical History: HCC screening in [facility] patient and TIPS evaluation (rule out thrombosis) Discussion: Sonographic evaluation of the abdomen wa s performed with Doppler. Comparison is made to right upper quadra nt ultrasound with Doppler 08/25/2019 Liver: 9.7 cm in length at the right m idclavicular line. Cirrhotic morphology. 9 x 8 x 8 mm cyst in the ri ght hepatic lobe. TIPS stent noted. Main portal vein diameter 1.6 cm. Biliary tree: Common duct 6 mm. No int rahepatic biliary ductal dilatation. Gallbladder: Contracted. Cholelithiasis . No wall thickening. No pericholecystic fluid. Negative sonograp hic Baltazar's sign. Pancreas: Partially obscured by bowel ga s but the visualized portions are unremarkable. Ascites: Small right abdominal ascites Spleen: 15.8 cm in length. Kidneys: Right kidney 8.5 x 4 x 3.5 cm with cortical thickness of 0.9 cm. Left kidney 9.3 x 4.5 x 4 cm wi th cortical thickness of 1.3 cm. Normal cortical echogenicity. No shadowing calculus, no hydronephrosis. IVC/Aorta: Segments partially seen. Un remarkable. Color and spectral Doppler evaluation of the hepatic vasculature: The main portal vein and branches are patent and demonstrate appropriate directional flow. The peak systolic [place] in the main portal vein is 26 cm/s. The TIPS is patent without a velocity gradient to suggest thrombosis or stenosis. The peak systoli c velocities in the proximal, mid and distal TIPS are 120 cm/s, 118 cm /s and 99 cm/s respectively. The proper, right and left hepatic arter ies are patent with normal waveforms. The resistive indices in the proper, right and left hepatic arteries are 0.7, 0.8 and 0.8 re spectively. The hepatic confluence, main hepatic vein and branch es are patent with normal waveforms. The splenic vein at the pancr eatic head and tail are patent with normal waveforms. Impression: Cirrhosis and evidence of portal hyperte nsion. Small liver cyst. Please note that liver protocol CT or MRI is more sensitive for the evaluation of HCC. Patent TIPS. No evidence of thrombosis. Elevated resistive indices in the right and left hepatic arteries. Cholelithiasis without sonographic evide nce of acute cholecystitis. Small abdominal ascites. Signed: David Yee MD Report Verified Date/Time: 02/24/2020 2 3:24:17 Performing Organization Address City/State/Zipcode Phone Number [facility] 2D Echo W/Doppler(CW/PW/Color) (02/24/2020 11:53 AM CDT) Pathologist Sig nature Ejection Fraction [facility] Specimen Narrative Performed At Transthoracic Echocardiography Report (T TE) [facility] Demographics Patient Name JOEL DESOUZA Date of Study 02/24/2020 MELLY Gender Male Visit Number [id number] Race Unknown Room Number 1230 Number Date of 1955 Referring [facility] Age 64 year(s) Guide Dog Mobility Instructor Arsenio pringle RDCS Police Detective Concepcion Lion RDCS Interpreting Elaina buckley Physician Procedure Type of Study TTE procedure:2DECHO W DOPPLER(CW/PW/COLOR) (Routine) Indications:Known or suspected cardiomyo sara. Clinical History NOHEMI, COPD, Pneumonia Lung transplant (12/2012) HGB 7.3 HCT 23.0 % Height: 66 inches Weight: 53.07 kg (117 lbs) BSA: 1.59 m^2 BMI: 18.88 kg/m^2 HR: 60 bpm BP: 149/65 mmHg Summary 1. LV is mildly enlarged. All segments contract normally. LVEF is normal (>60%) . 2. Normal RV size and function. 3. Estimated peak systolic PA pressure is 20-25 mmHg (normal range) . 4. E/e' is normal c/w normal left atria l pressure Previous Study In comparison with the prior exam on 01/20/2019 there are no significant changes. Signature Findings Left Ventricle The left ventricle is chamber size (by vol index) is mildly enlarged (male - LVED 75-89ml/m2). No evidence of LV hypertrophy. All of the LV segments contract normally . Global LV systolic function normal . LVEF by Solano's method of disk assessment is normal (>60%) . LV diastolic function is indeterminate. E/e' is normal c/w normal left atrial pressure Left Atrium LA size is severely enlarged (>48 ml/m2) . Right Ventricle The right ventricular chamber size and systolic function are within normal limits. Right Atrium RA size is normal. Aortic Valve Normal AoV structure and function. Mitral Valve Mild MV leaflet thickening. Trace mitral regurgitation. Tricuspid Valve TV structure is normal. Mild tricuspid regurgitation. Estimated peak systolic PA pressure is 20-25 mmHg (normal range) . Pulmonic Valve Normal PV structure and function by limited views and Doppler. Aorta Aortic root size (SInus of Valsalva diameter) is norm al . Pericardium No pericardial effusion is visualized. Ascites is visualized. IVC/SVC/PA/PV/Pleural The estimated RA pressure by IVC dynamics 0-5mmHg . Chambers/Structures Left Atrium LA Volume: 106.29 ml LA Area: 27.54 cm^2 LA Vol. Index: 67 ml/m^2 Left Ventricle LVIDd: 4.91 cm LVIDs: 3.13 cm LV Septum Diastolic: 1.05 cm LV PW Diastolic: 1.07 cm LV FS: 36.3 % LVEDV Solano's:132.53 ml LVESV Solano's:51.21 ml LVEDVI: 83 ml/m^2 LVEF Solano's: 61.4 % LVESVI: 32 ml/m^2 LVOT Diameter: 1.88 cm Aorta Ao Root S of Yojana.: 3.65 cm Doppler/Quantitative Measurements Mitral Valve MV Peak E-Wave: 0.8 m/s MV Peak A-Wave: 0.44 m/s E/A Ratio: 1.81 Peak Gradient: 2.56 mmHg Deceleration Time: 199.5 msec MV Gui. Peak: Tissue Doppler E' Lateral Velocity: 0.13 m/s E/E': 6.23 Aortic Valve Peak Velocity: 1.37 m/s Mean Velocity: 0.87 m/s Peak Gradient: 7.54 mmHg Mean Gradient: 3.63 mmHg AV Area (continuity): 2.31 cm^2 AV VTI: 33.2 cm AV DVI: 0.83 LVOT Peak Velocity: 1.27 m/s Peak Gradient: 6.44 mmHg Mean Velocity: 0.74 m/s Mean Gradient: 2.69 mmHg LVOT Diameter: 1.88 cm LVOT VTI: 27.6 cm LVOT Area: 2.78 cm^2 LVOT SV:76.58 ml LVOT CO: 4.59 l/min LVOT CI: 2.89 l/min/m^2 Tricuspid Valve TR Velocity: 2.05 m/s TR Gradient: 16.76 mmHg Procedure Note Interface, External Ris In - 02/24/2020 8:08 PM CDT Transthoracic Echocardiography Report (TTE) Demographics Patient Name JOEL DESOUZA Date of Study 02/24/2020 MELLY Gende r Male Visit Number [id number] Race Unknown Room Number 1230 Number Date of 1955 Refer ring [place] [facility] Mely demetrice Age 64 year(s) Sonog rapher Arsenio Jason RDCS Police Detective Concepcion Lion RDCS Inter pretmaria de jesus L[facility] Physi demetrice ARGUETA Procedure Type of Study TTE procedure:2DECHO W DOPPLE R(CW/PW/COLOR) (Routine) Indications:Known or suspected cardiomyo sara. Clinical History NOHEMI, COPD, Pneumonia Lung transplant (12/2012) HGB 7.3 HCT 23.0 % Height: 66 inches Weight: 53.07 kg (117 lbs) BSA: 1.59 m^2 BMI: 18.88 kg/m^2 HR: 60 bpm BP: 149/65 mmHg Summary 1. LV is mildly enlarged. All segments contract normally. LVEF is normal (>60%) . 2. Normal RV size and function. 3. Estimated peak systolic PA pressure is 20-25 mmHg (normal range) . 4. E/e' is normal c/w normal left atria l pressure Previous Study In comparison with the prior exam on there are no significant changes. Signature Findings Left Ventricle The left ventric le is chamber size (by vol index) is mildly enlarg ed (male - LVED 75-89ml/m2). No evidence of LV h ypertrophy. All of the LV segments contract normall y . Global LV systolic function normal . LVEF by Solano's method of disk assessment is no rmal (>60%) . LV diastolic function is indeterminate . E/e' is normal c/w normal left atrial pressure Left Atrium LA size is sever corine enlarged (>48 ml/m2) . Right Ventricle The right ventri cular chamber size and systolic function are wit hin normal limits. Right Atrium RA size is conchita l. Aortic Valve Normal AoV struc ture and function. Mitral Valve Mild MV leaflet thickening. Trace mitral reg urgitation. Tricuspid Valve TV structure is normal. Mild tricuspid r egurgitation. Estimated peak s ystolic PA pressure is 20-25 mmHg (normal range) . Pulmonic Valve Normal PV struct ure and function by limited views and Doppler. Aorta Aortic root size (SInus of Valsalva diameter) is normal . Pericardium No pericardial e ffusion is visualized. Ascites is visua lized. IVC/SVC/PA/PV/Pleural The estimated RA pressure by IVC dynamics 0-5mmHg . Chambers/Structures Left Atrium LA Volume: 106.29 ml LA Area: 27.54 cm^2 LA Vol. Index: 67 ml/m^2 Left Ventricle LVIDd: 4.91 cm LVIDs: 3.13 cm LV Septum Diastolic: 1.05 cm LV PW Diastolic: 1.07 cm LV FS: 36.3 % LVEDV Solano's:132.53 ml LVESV Solano's:51.21 ml LVEDVI: 83 ml/m^2 LVEF Solano's: 61.4 % LVESVI: 32 ml/m^2 LVOT Diameter: 1.88 cm Aorta Ao Root S of Yojana.: 3.65 cm Doppler/Quantitative Measurements Mitral Valve MV Peak E-Wave: 0.8 m/s M V Peak A-Wave: 0.44 m/s E /A Ratio: 1.81 P eak Gradient: 2.56 mmHg D eceleration Time: 199.5 msec MV Gui. Peak: Tissue Doppler E' Lateral Velocity: 0.13 m/s E /E': 6.23 Aortic Valve Peak Velocity: 1.37 m/s Mean Velocity: 0.87 m/s Peak Gradient: 7.54 mmHg Mean Gradient: 3.63 mmHg AV Area (continuity): 2.31 cm^2 AV VTI: 33.2 cm AV DVI: 0.83 LVOT Peak Velocity: 1.27 m/s Pea k Gradient: 6.44 mmHg Mean Velocity: 0.74 m/s Gracie n Gradient: 2.69 mmHg LVOT Diameter: 1.88 cm LVO T VTI: 27.6 cm LVOT Area: 2.78 cm^2 LVO T SV:76.58 ml LVOT CO: 4.59 l/min LVO T CI: 2.89 l/min/m^2 Tricuspid Valve TR Velocity: 2.05 m/s TR Gradient: 16.76 mmHg Performing Organization Address City/State/Zipcode Phone Number [facility] Pulmonary Funct Lab Spirometry (02/23/2020 10:54 AM CDT) Narrative Performed At [place], [facility], [facility] 02/23/20 20 4:15 PM [facility] PFT CHARTING REPORT Infection Control/Hand Hygiene procedure s followed throughout the encounter with patient: Yes Patient Identification Method: Patient n maria luisa verified on armband, and Medical record on armband, Is the order complete?: Yes Account ID#: [id number] Patient Name: Joel Desouza Birthdate: 1955 Age: 64 y.o. Sex: male Admission Date: 02/23/2020 Patient Status: Outpatient Reasons/Symptom for having the Test?: th e need of post-op transplant evaluation Type of study/treatment ordered by physi demetrice: Spirometry Lab Results Component Value Date HGB 7.3 (L) 02/23/2020 Ranges: Adult Male 13 - 16.8 g/dl Adult Female 12 - 15 g/dl 6 Minute Walk (read only) 12/11/201902/2202/23/2020 BP Pre - - - Start Time - - - Young Perceived Exertion Scale Pre - - - Ordering Physician - - - Interval - - - Pulse 67 63 72 SpO2 98 100 99 Supplemental O2 Flow Activity - - - Activity - - - Total Distance (in mts) - - - BP Post - - - Tank Pulled? - - - Tank Carried? - - - End Time - - - Young Perceived Exertion Scale Post - - - Study Date: 02/23/20 Jamison dy Time: 1054 ASSESSMENT History & Physical Mode of Arrival: Ambulatory Pulse: 72 Resp: 19 SPO2: 99 % on RA Pain Assessment Pain:None TESTING/THERAPEUTICS Medications ordered or required for pro cedure: N/A PT EDUCATION/INSTRUCTIONS Barriers to learning: No Known learning barriers Learning need identified: Yes, Patient/ Family/Guradian was informed of the ordered study by the jacki jim Barriers to performing study or treatme nt: Patient has no known disability to perform the study or treat ment. DISCHARGE The study was completed in accordance wi th the physician's order and patient released from the lab withou t adverse outcome. AB SPECIFICITY CLASS II (02/23/2020 10:27 AM CDT) AB Specificity Class NO CLASS II [facility] HLA TESTING II ANTIBODY DETECTED WITH MFIs > 1000 Specimen Blood Narrative Performed At Disclaimer: [facility] HLA TESTING This test was developed and its performance characteri stics determined by the [facility] Laboratory. It has not been aleks red or approved by the U.S. Food and Drug Administration. The FDA has determined that such clearance or approval is not nece ssary. This test is used for clinical purposes. It should not be r egarded as investigational or for research. This laboratory is ce rtified under the Clinical Laboratory Improvement Amendments o f 1988 (CLIA-88) as qualified to perform high complexity clin ical laboratory testing. Performing Organization Address City/[facility]/Zipcode Phone Number [facility] HLA TESTING ONE Juan R Delarosa, MS: [place] [address] [id number], CLIA#[id number] CAP#[id number] UNOS#[id number] AB SPECIFICITY CLASS I (02/23/2020 10:27 AM CDT) Pathologist [facility] AB Specificity Class NO CLASS I [facility] HLA TESTING I ANTIBODY DETECTED WITH MFIs > 1000 Specimen Blood Narrative Performed At Disclaimer: [facility] HLA TESTING This test was developed and its performance characteri stics determined by the [facility] Laboratory. It has not been aleks red or approved by the U.S. Food and Drug Administration. The FDA has determined that such clearance or approval is not nece ssary. This test is used for clinical purposes. It should not be r egarded as investigational or for research. This laboratory is ce rtified under the Clinical Laboratory Improvement Amendments o f 1988 (CLIA-88) as qualified to perform high complexity clin ical laboratory testing. Performing Organization Address City/State/Zipcode Phone Number [facility] HLA TESTING ONE Juan R Delarosa, MS: [place] [address] [id number], CLIA#[id number] CAP#[id number] UNOS#[id number] AB Specifities DSA (02/23/2020 10:27 AM CDT) Pathologist [facility] DSA A AG1 03:[address] [facility] HLA TESTING DSA B AG1 44:[address] [facility] HLA TESTING DSA B AG2 58:[address] [facility] HLA TESTING DSA C AG1 06:[address] [facility] HLA TESTING DSA C AG2 16:[address] [facility] HLA TESTING DSA DR AG1 07:[address] [facility] HLA TESTING DSA DR AG2 03:[address] [facility] HLA TESTING DSA DRw AG1 4*01:[address] [facility] HLA TESTING DSA DRw AG2 3*01:[address] [facility] HLA TESTING DSA DQA AG1 02:[address] [facility] HLA TESTING DSA DQA AG2 04:[address] [facility] HLA TESTING DSA DQB AG1 04:[address] [facility] HLA TESTING DSA DQB AG2 02:[address] [facility] HLA TESTING DSA DPA AG1 02:[address] [facility] HLA TESTING DSA DPA AG2 02:[address] [facility] HLA TESTING DSA DPB AG1 01:[address] [facility] HLA TESTING DSA DPB AG2 11:[address] [facility] HLA TESTING AB Specificity DSA NO DONOR SPECIFIC [facility] HLA Comment ANTIBODY DETECTED TESTING WITH MFIs > 1000; If a specific bead is not available on single antigen panel and MFIs > 1000, results reflect the average of beads with serological equivalence. Specimen Blood Narrative Performed At Disclaimer: [facility] HLA TESTING This test was developed and its performance characteri stics determined by the [facility] Laboratory. It has not been aleks red or approved by the U.S. Food and Drug Administration. The FDA has determined that such clearance or approval is not nece ssary. This test is used for clinical purposes. It should not be r egarded as investigational or for research. This laboratory is ce rtified under the Clinical Laboratory Improvement Amendments o f 1988 (CLIA-88) as qualified to perform high complexity clin ical laboratory testing. Performing Organization Address City/State/Zipcode Phone Number [facility] HLA TESTING ONE Juan R Delarosa, MS: [place] [address] [id number], CLIA#[id number] CAP#[id number] UNOS#[id number] Hemoglobin A1c (02/23/2020 10:27 AM CDT) Pathologist Sig nature Hemoglobin A1C <3.8 (L) 4.3 - 6.1 % [facility] Specimen Blood Performing Organization Address City/State/Zipcode Phone Number [facility] [address], [place] [phone] CENTER CMV PCR, quantitative (02/23/2020 10:26 AM CDT)Only the most recent of3 results within the time period is included. CMV DNA Viral Load Comment: See [facility] Scanned Report. (ANY) CMV DNA Viral Load Comment: See [facility] Scanned Report. (ANY) Specimen Blood Narrative Performed At This result has an attachment that is no t available. Performing Organization Address City/State/Zipcode Phone Number [facility] (ANY) CBC with platelet count + automated diff (01/27/2020 10:56 AM CDT)Only the most recent of3 resultswithin the time period is included. WBC 5.2 3.4 - 10.8 [facility] 1 x10E3/uL RBC 2.18 (LL) 4.14 - 5.80 [facility] 1 x10E6/uL Hemoglobin 7.2 (L) 13.0 - 17.7 [facility] 1 g/dL Hematocrit 21.2 (L) 37.5 - 51.0 % [facility] 1 MCV 97 79 - 97 fL [facility] 1 MCH 33.0 26.6 - 33.0 pg [facility] 1 MCHC 34.0 31.5 - 35.7 [facility] 1 g/dL RDW 13.3 11.6 - 15.4 % [facility] 1 Platelets 52 (LL) 150 - 450 [facility] 1 Comment: x10E3/uL Platelet count verified by examination of peripheral b lood smear. Decreased. % Neutros 88 Not Estab. % [facility] 1 % Lymphs 6 Not Estab. % [facility] 1 % Monos 5 Not Estab. % [facility] 1 % Eos 0 Not Estab. % [facility] 1 % Baso 0 Not Estab. % [facility] 1 # Neutros 4.6 1.4 - 7.0 [facility] 1 x10E3/uL # Lymphs 0.3 (L) 0.7 - 3.1 [facility] 1 x10E3/uL # Monos 0.3 0.1 - 0.9 [facility] 1 x10E3/uL # Eos 0.0 0.0 - 0.4 [facility] 1 x10E3/uL Baso (Absolute) 0.0 0.0 - 0.2 [facility] 1 x10E3/uL % Immature Grans 1 Not Estab. % [facility] 1 # Immature Grans 0.0 0.0 - 0.1 [facility] 1 x10E3/uL Hematology Note:Comment: [facility] 1 Comments: Verified by microscopic examination. Specimen Blood Narrative Performed At Performed at: 01 - [facility] [place] [facility] [address] [place], [place] [address] 143 Fiction Writer: Ortega Santiago MD, Phone: [phone] Performing Organization Address City/State/Zipcode Phone Number [facility] 1 RHYTHM STRIP - SCAN (12/14/2019 10:01 AM CDT)Only the most recent of4 results within the time period is included. Narrative Performed At This result has an attachment that is no t available. XR chest 1 view portable / bedside (12/10/2019 7:48 PM CDT)Only the most recent of2 resultswithin the time period is included. Specimen Narrative Performed At FINAL REPORT GE RIS History: Shortness of breath. Comparison: 07/28/2019 Findings: A single view of the chest is submitted. The cardiac silhouette is within normal limits for size. The patient has undergone previous sternotomy. There is central vascular engorgement. D iffuse interstitial and patchy mid and lower lung airspace opaci ties suggest pulmonary edema. Small bilateral pleural effusions are pr esent and new from previous. There is no pneumothorax or acute bony a bnormality. Signed: Karissa Haile MD Report Verified Date/Time: 12/10/2019 20:23:47 Procedure Note Interface, External Ris In - 12/10/2019 8:25 PM CDT FINAL REPORT History: Shortness of breath. Comparison: 07/28/2019 Findings: A single view of the chest is submitted. The cardiac silhouette is within normal limits for size. The patient has undergone previous sternotomy. There is central vascular engorgement. D iffuse interstitial and patchy mid and lower lung airspace opaci ties suggest pulmonary edema. Small bilateral pleural effusions are pr esent and new from previous. There is no pneumothorax or acute bony a bnormality. Signed: Karissa Haile MD Report Verified Date/Time: 12/10/2019 2 0:23:47 Performing Organization Address City/State/Zipcode Phone Number [facility] TIPSS Procedure (08/31/2019 11:30 AM APPLICATIONS INTERN) Specimen Narrative Performed At FINAL REPORT [facility] History: Portal hypertension, recurrent ascites. PROCEDURE: Following informed written consent, gene ral endotracheal anesthesia was administered and the patient's right cervical region was prepped and draped in the usual sterile manner. Maximum sterile barrier techniques were utilized. Access was gai norah to the right internal jugular vein using ultrasound guidance a nd a micropuncture needle. A 10 [place] sheath was placed at the [facility] s site. A 5 [place] multipurpose catheter and Smith wire wer e then used to carefully select and perform right and middle hepa tic venography. The catheter was removed over the Smith wire and repl aced with a transjugular biopsy sheath. A total of three 19-gauge core tissue samples were obtained from the hepatic parenchyma adj acent to the middle hepatic vein and submitted in formalin to pathstephanie hidalgo for evaluation. Hepatic pressures were also measured. The biopsy sheath was then exchanged over the wire for a multipurpose cathete r which was used to select the right hepatic vein. The catheter was exchanged over the wire for a Col[place]into needle and tip sheath. The C olapinto needle was seated in the wall of the right hepatic vein and u sing coaxial technique and a 21-gauge 65 cm Chiba needle, percutaneou s access was gained to the right portal vein. An 018 wire was advan yuri through the needle into the main portal vein. The tract was dila abdullahi using a 5 mm balloon and a Berenstein catheter was advanced over the wire into the main portal vein. Portal venography was performed. A n Amplatz wire was then placed through the portal venous access and into the superior mesenteric vein. A 45 cm 10 [place] sheat h was advanced over the wire into the main portal vein. A 7 x 2 cm Vi ator stent was placed across the hepatic tract between the right port al and right hepatic veins. The stent was dilated using an 8 x 40 mm balloon. Repeat portal venogram and portal venous pressures wer e obtained. At the conclusion of the procedure, the catheter was remov ed and hemostasis achieved using May no compression. Overall, the p atient tolerated the procedure well without immediate complic ations and was discharged to the recovery room in stable condition. FINDINGS: Ultrasound images of the right internal jugular vein obtained prior to percutaneous access demonstrated hopkins nt and compressible vessel without evidence for thrombus. These viviana ges were archived to PACS. Right hepatic venogram shows a relativel y small but patent right hepatic vein. Middle hepatic vein is als o patent and is larger than the right. Portal venous pressures obtai norah at the time of the transjugular liver biopsy are as follows : Wedged hepatic pressure: 18 mmHg Three hepatic pressure: 5 mmHg Right atrial pressure: 5 mmHg Total gradient: 13 mmHg Following transhepatic access to the rig ht portal vein, portal venogram demonstrates a patent main righ t and left portal veins with hepatopedal flow. No filling defects or thrombus is identified. Following stent deployment and dilatatio n, the Viator stent is noted to lie in expected position between the right portal and right hepatic veins. Flow through the stent is brisk. Persistent hepatopedal flow is seen in the [place] p ortal veins. No varices are identified. Post stent gradient pressure s as follows: Main portal vein: 15 mmHg Right atrial pressure: 9 mmHg Total gradient: 6 mmHg IMPRESSION: 1. Successful uncomplicated transjugular liver biopsy and hepatic venous pressures as described above. A t otal of three 19-gauge core tissue samples were obtained from the li ramiro and submitted in formalin to pathology for evaluation. 2. Technically successful uncomplicated TIPS stent deployment between the right hepatic and right portal veins with a post stent gradient of 6 mmHg between the main portal vein a nd right atrium. Total fluoroscopy time: 15.6 minutes. Estimated total patient dose reported as (Ka,r): 358 mGy Signed: Raul Fernandez MD Report Verified Date/Time: 09/01/2019 18:36:48 Reading Location: [place] [address] Angio Body Reading Room Procedure Note Interface, External Ris In - 09/01/2019 6:39 PM APPLICATIONS INTERN FINAL REPORT History: Portal hypertension, recurrent ascites. PROCEDURE: Following informed written consent, gene ral endotracheal anesthesia was administered and the patient's right cervical region was prepped and draped in the usual sterile manner. Maximum sterile barrier techniques were utilized. Access was gai norah to the right internal jugular vein using ultrasound guidance a nd a micropuncture needle. A 10 [place] sheath was placed at the acces s site. A 5 [place] multipurpose catheter and Smith wire wer e then used to carefully select and perform right and middle hepa tic venography. The catheter was removed over the Smith wire and repl aced with a transjugular biopsy sheath. A total of three 19-gauge core tissue samples were obtained from the hepatic parenchyma adj acent to the middle hepatic vein and submitted in formalin to blanca hidalgo for evaluation. Hepatic pressures were also measured. The biopsy sheath was then exchanged over the wire for a multipurpose cathete r which was used to select the right hepatic vein. The catheter was exchanged over the wire for a Colapinto needle and tip sheath. The C olapinto needle was seated in the wall of the right hepatic vein and u sing coaxial technique and a 21-gauge 65 cm Chiba needle, percutaneou s access was gained to the right portal vein. An 018 wire was advan yuri through the needle into the main portal vein. The tract was dila abdullahi using a 5 mm balloon and a Berenstein catheter was advanced over the wire into the main portal vein. Portal venography was performed. A n Amplatz wire was then placed through the portal venous access and into the superior mesenteric vein. A 45 cm 10 [place] sheat h was advanced over the wire into the main portal vein. A 7 x 2 cm Vi ator stent was placed across the hepatic tract between the right port al and right hepatic veins. The stent was dilated using an 8 x 40 mm balloon. Repeat portal venogram and portal venous pressures wer e obtained. At the conclusion of the procedure, the catheter was remov ed and hemostasis achieved using May no compression. Overall, the p atient tolerated the procedure well without immediate complic ations and was discharged to the recovery room in stable condition. FINDINGS: Ultrasound images of the right internal jugular vein obtained prior to percutaneous access demonstrated hopkins nt and compressible vessel without evidence for thrombus. These viviana ges were archived to PACS. Right hepatic venogram shows a relativel y small but patent right hepatic vein. Middle hepatic vein is als o patent and is larger than the right. Portal venous pressures obtai norah at the time of the transjugular liver biopsy are as follows : Wedged hepatic pressure: 18 mmHg Three hepatic pressure: 5 mmHg Right atrial pressure: 5 mmHg Total gradient: 13 mmHg Following transhepatic access to the rig ht portal vein, portal venogram demonstrates a patent main righ t and left portal veins with hepatopedal flow. No filling defects or thrombus is identified. Following stent deployment and dilatatio n, the Viator stent is noted to lie in expected position between the right portal and right hepatic veins. Flow through the stent is brisk. Persistent hepatopedal flow is seen in the [place] p ortal veins. No varices are identified. Post stent gradient pressure s as follows: Main portal vein: 15 mmHg Right atrial pressure: 9 mmHg Total gradient: 6 mmHg IMPRESSION: 1. Successful uncomplicated transjugular liver biopsy and hepatic venous pressures as described above. A t otal of three 19-gauge core tissue samples were obtained from the li ramiro and submitted in formalin to pathology for evaluation. 2. Technically successful uncomplicated TIPS stent deployment between the right hepatic and right portal veins with a post stent gradient of 6 mmHg between the main portal vein a nd right atrium. Total fluoroscopy time: 15.6 minutes. Estimated total patient dose reported as (Ka,r): 358 mGy Signed: Raul Fernandez MD Report Verified Date/Time: 09/01/2019 1 8:36:48 Reading Location: [place] [address] Angio Body Reading Room Performing Organization Address City/State/Zipcode Phone Number [facility] Tissue Exam (08/31/2019 11:20 AM APPLICATIONS INTERN) Case Report Surgical Pathology Report Case: [id number] [facility] Authorizing Provider: Aaron Nunez MD Collected: 08/31/2019 1120 [facility] Ordering Location: [facility] Radiology Angio Received: 08/31/[address] [place] [address] Pathologist: Mandie Tyler MD Specimen: Biopsy, Liver DIAGNOSIS LIVER, TRANSJUGULAR NEEDLE BIOPSIES MELODY S [facility] Electronically - FIBROSIS STAGE 4 OF 4, CONSISTENT WITH CIRRHOSIS [facility] signed by Jayson, - see comment [facility] MD Mandie o n Signing Pathologist Direct Phone Line: [phone] 09/04/2019 at 10:25 AM COMMENT The liver biopsy shows [facility] foci of sinusoidal [facility] dilatation and congestion [facility] with dilated venous radicals. These features could be secondary to portal hypertension or may suggest a chronic venous outflow obstruction. 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 SPECIMEN SOURCE A. Liver biopsy [facility] GROSS DESCRIPTION The case is received in one part labeled with the patient's information as [id number] which corresponds to the accompanying requisition slip. [facility] A. Received in formalin labe led with the patient's information and "liver biopsy" are four fragments of kwong-red soft tissue needle cores measuring 1 x 0.3 x 0.3 cm in aggregate. They are submitted in toto after filtration in cassette A1. [place]/[facility] MICROSCOPIC Section shows four cores of liver parenchyma with greater than 10 portal tracts and is adequate for evaluation. Trichrome and reticulin stains show expanded fibrotic portal areas with foci of bridging a [facility] DES[facility] nd nodularity, consistent wi th cirrhosis. Perisinusoidal fibrosis is prominent. Focal areas suggest fibrosis of centrilobular hepatic veins and dilatation of venous radicals. Sinusoidal dilatation and c [facility] ongestion is present. Mild n onspecific lymphocyte predominant portal inflammation is present. There is ductular reaction with associated neutrophils. The bile ducts are preserved and appear unremarkable [facility] . No periductal inflammation , granulomas or bile duct scars are seen. Few glycogenated nuclei are present. No significant steatosis, ballooning degeneration, Sheron Denk hyaline, lobular necroinflammat ion or cholestasis is presen t. Minimal small droplet steatosis involving less than 5% of liver parenchyma is present. No hyaline globules are seen on PASD stain. Iron stain is negative. Special stains: trichrome, reticulin, iron and PAS wit h diastase SPECIAL STUDIES The interpretation of this c ase included the use of immunohistochemistry or special stains. [facility] Control Slides Examined: In -house known positive controls were evaluated along with the test tissue. These control slides run alongside of the patients sample show appropriate staining. Internal [facility] [address] alvaro and negative controls when available are evaluated Immunohistochemistry technic al testing was performed at [facility], Pathology Laboratory where it was developed and its performance characteristics were determined. It has not be en cleared or approved by [facility] [place]. Food and Drug Administration. The FDA has determined that such clearance or approval is not necessary. The test is used for clinical purposes. It should not be regarde d as investigational or for research. This laboratory is certified under the Clinical Laboratory Improvement Amendments of 1988 (CLIA-88) as qualified to perform high complexity clinical laboratory testing. Specimen Tissue - Biopsy, Liver Performing Organization Address City/State/Zipcode Phone Number [facility] [address] [place] [address] CENTER CARDIAC CATH REPORT - SCAN (08/28/2019 1:40 PM APPLICATIONS INTERN) Narrative Performed At This result has an attachment that is no t available. US Hepatic Portal Vessel with Doppler (08/25/2019 9:15 PM APPLICATIONS INTERN) Specimen Narrative Performed At FINAL REPORT [facility] TECHNIQUE: Grayscale ultrasound of the a bdomen with color Doppler and spectral Doppler ultrasound of the dominik l/hepatic vasculature. INDICATION: Assess for portal vein throm bus. COMPARISON: Ultrasound from 04/22/2019. MRI from 05/13/2019. FINDINGS: LIVER: Nodular liver contour. No focal l iver lesions. HEPATIC VASCULATURE: Portal veins are pa tent with normal waveform and directionality. Flow velocity in the kemal n portal vein is within normal limits. The hepatic veins and con fluence are patent. The main portal vein measures 1.6 cm in diameter. The left hepatic artery was unable to be visualized. The hepatic arterial resistive indices measure 0.7 o n the right hepatic artery and 0.8 in the proper hepatic artery. e proper hepatic arterial acceleration time measures 0.04 seconds. BILIARY: Gallbladder: The gallbladder is filled w ith stones. No gallbladder distention. Mild gallbladder wall thicke elsie may be related to the portal hypertension. Negative sonographi c Baltazar sign. Common bile duct measures 0.4 cm, within normal limits. No intrahepatic biliary ductal dilatation. PANCREAS: Incompletely visualized due to overlying bowel gas. The partially visualized pancreatic neck and body are normal. SPLEEN: Spleen is enlarged at 16.8 cm in length. PERITONEUM: No free fluid. KIDNEYS: The kidneys are small. The righ t kidney measures 8.4 x 3.8 x 3.7 cm, and the left kidney measures 9.9 x 3.4 x 3 cm. No hydronephrosis. No sonographically evide nt solid mass lesion. MIDLINE VASCULATURE: The visualized infe rior vena cava is patent. The maximum visualized aortic diameter is 2. 2 cm. Splenic artery and vein are patent. IMPRESSION: 1.The portal venous system is patent. 2.The left hepatic artery was unable to be visualized. The mildly elevated resistive index in the proper h epatic artery is likely due to the cirrhosis. 3.Cirrhosis with sequelae of portal hype rtension including small volume ascites and moderate splenomegaly . 4.Cholelithiasis. The gallbladder wall t hickening is likely related to the portal hypertension. No definitiv e signs of acute cholecystitis. 5.The kidneys are small. Signed: Yuni Mcmahan MD Report Verified Date/Time: 08/25/2019 22:44:25 Reading Location: [address] Procedure Note Interface, External Ris In - 08/25/2019 10:47 PM APPLICATIONS INTERN FINAL REPORT TECHNIQUE: Grayscale ultrasound of the a bdomen with color Doppler and spectral Doppler ultrasound of the dominik l/hepatic vasculature. INDICATION: Assess for portal vein throm bus. COMPARISON: Ultrasound from 04/22/2019. MRI from 05/13/2019. FINDINGS: LIVER: Nodular liver contour. No focal l iver lesions. HEPATIC VASCULATURE: Portal veins are pa tent with normal waveform and directionality. Flow velocity in the kemal n portal vein is within normal limits. The hepatic veins and con fluence are patent. The main portal vein measures 1.6 cm in diameter. The left hepatic artery was unable to be visualized. The hepatic arterial resistive indices measure 0.7 o n the right hepatic artery and 0.8 in the proper hepatic artery. Th e proper hepatic arterial acceleration time measures 0.04 seconds. BILIARY: Gallbladder: The gallbladder is filled w ith stones. No gallbladder distention. Mild gallbladder wall thicke elsie may be related to the portal hypertension. Negative sonographi c Baltazar sign. Common bile duct measures 0.4 cm, within normal limits. No intrahepatic biliary ductal dilatation. PANCREAS: Incompletely visualized due to overlying bowel gas. The partially visualized pancreatic neck and body are normal. SPLEEN: Spleen is enlarged at 16.8 cm in length. PERITONEUM: No free fluid. KIDNEYS: The kidneys are small. The righ t kidney measures 8.4 x 3.8 x 3.7 cm, and the left kidney measures 9.9 x 3.4 x 3 cm. No hydronephrosis. No sonographically evide nt solid mass lesion. MIDLINE VASCULATURE: The visualized infe rior vena cava is patent. The maximum visualized aortic diameter is 2. 2 cm. Splenic artery and vein are patent. IMPRESSION: 1.The portal venous system is patent. 2.The left hepatic artery was unable to be visualized. The mildly elevated resistive index in the proper h epatic artery is likely due to the cirrhosis. 3.Cirrhosis with sequelae of portal hype rtension including small volume ascites and moderate splenomegaly . 4.Cholelithiasis. The gallbladder wall t hickening is likely related to the portal hypertension. No definitiv e signs of acute cholecystitis. 5.The kidneys are small. Signed: Yuni Mcmahan MD Report Verified Date/Time: 08/25/2019 2 2:44:25 Reading Location: [facility] C013 Consult R reading [facility] Room Performing Organization Address City/State/Zipcode Phone Number [facility] US testicular with doppler (08/23/2019 1:20 PM APPLICATIONS INTERN) Specimen Narrative Performed At FINAL REPORT [facility] Limited abdominal ultrasound dated 2019 COMMENT: Limited ultrasound examination of the abdomen was performed. No ascites was seen in the abdomen. Plan norah ultrasound guided paracentesis was not performed. IMPRESSION: No ascites. Testicular ultrasound date 08/23/2019 Comment: Real-time ultrasound examinat ion of the testis were obtained. Right testes measures 4.0 x 2.6 x 2.2 cm . Left testes measures 3.9 x 32.4 x 3 point cm. Both testis are homogeneous without foca l mass. Doppler ultrasound demonstrates patent arterial and venous flow in both testis. Right epididymis measures 1.4 x 0.7 cm. Left epididymis measures 1.5 x 0.7 cm. There is bilateral hydrocele. Edema is s een involving the scrotum. Impression: Bilateral hydroceles and scr otal edema. Signed: Ken Harper MD Report Verified Date/Time: 08/23/2019 15:29:24 Reading Location: [facility] B1 C013X [facility] Reading Room Procedure Note Interface, External Ris In - 08/23/2019 3:31 PM APPLICATIONS INTERN FINAL REPORT Limited abdominal ultrasound dated 2019 COMMENT: Limited ultrasound examination of the abdomen was performed. No ascites was seen in the abdomen. Plan norah ultrasound guided paracentesis was not performed. IMPRESSION: No ascites. Testicular ultrasound date 08/23/2019 Comment: Real-time ultrasound examinati on of the testis were obtained. Right testes measures 4.0 x 2.6 x 2.2 cm . Left testes measures 3.9 x 32.4 x 3 point cm. Both testis are homogeneous without foca l mass. Doppler ultrasound demonstrates patent arterial and venous flow in both testis. Right epididymis measures 1.4 x 0.7 cm. Left epididymis measures 1.5 x 0.7 cm. There is bilateral hydrocele. Edema is s een involving the scrotum. Impression: Bilateral hydroceles and scr otal edema. Signed: Ken Harper MD Report Verified Date/Time: 08/23/2019 1 5:29:24 Reading Location: [facility] [id number] [facility] Reading Room Performing Organization Address City/State/Zipcode Phone Number [facility] US abdomen limited (08/23/2019 12:25 PM APPLICATIONS INTERN) Specimen Narrative Performed At FINAL REPORT [facility] Limited abdominal ultrasound dated 2019 COMMENT: Limited ultrasound examination of the abdomen was performed. No ascites was seen in the abdomen. Plan norah ultrasound guided paracentesis was not performed. IMPRESSION: No ascites. Testicular ultrasound date 08/23/2019 Comment: Real-time ultrasound examinat ion of the testis were obtained. Right testes measures 4.0 x 2.6 x 2.2 cm . Left testes measures 3.9 x 32.4 x 3 point cm. Both testis are homogeneous without foca l mass. Doppler ultrasound demonstrates patent arterial and venous flow in both testis. Right epididymis measures 1.4 x 0.7 cm. Left epididymis measures 1.5 x 0.7 cm. There is bilateral hydrocele. Edema is s een involving the scrotum. Impression: Bilateral hydroceles and scr otal edema. Signed: Ken Harper MD Report Verified Date/Time: 08/23/2019 15:29:24 Reading Location: [facility] C013[facility] Reading Room Procedure Note Interface, External Ris In - 08/23/2019 3:31 PM APPLICATIONS INTERN FINAL REPORT Limited abdominal ultrasound dated 2019 COMMENT: Limited ultrasound examination of the abdomen was performed. No ascites was seen in the abdomen. Plan norah ultrasound guided paracentesis was not performed. IMPRESSION: No ascites. Testicular ultrasound date 08/23/2019 Comment: Real-time ultrasound examinati on of the testis were obtained. Right testes measures 4.0 x 2.6 x 2.2 cm . Left testes measures 3.9 x 32.4 x 3 point cm. Both testis are homogeneous without foca l mass. Doppler ultrasound demonstrates patent arterial and venous flow in both testis. Right epididymis measures 1.4 x 0.7 cm. Left epididymis measures 1.5 x 0.7 cm. There is bilateral hydrocele. Edema is s een involving the scrotum. Impression: Bilateral hydroceles and scr otal edema. Signed: Ken Harper MD Report Verified Date/Time: 08/23/2019 1 5:29:24 Reading Location: [facility] C013[facility] Reading Room Performing Organization Address City/State/Zipcode Phone Number [facility] Amylase (08/23/2019 10:46 AM APPLICATIONS INTERN)Only the most recent of2 resultswithin the time period is included. Pathologist Sig nature Amylase 80 25 - 125 U/L [facility] Specimen Blood Narrative Performed At Activities Aide ID - MARCELLE Hampton [facility] Performing Organization Address City/State/Zipcode Phone Number [facility] [address] [address] CENTER REPORT OF PROCEDURE - ENDOSCOPY URL (08/20/2019 12:19 PM APPLICATIONS INTERN) Narrative Performed At This result has an attachment that is no t available. US paracentesis (08/19/2019 11:22 AM APPLICATIONS INTERN)Only the most recent of7 resultswithin the time period is included. Specimen Narrative Performed At FINAL REPORT [facility] Ultrasound guided paracentesis Clinical History: Ascites. Sedation: None. Building Equipment Operator: Aure Huerta PA-C Supervising Physician: Deanna Barraza MD Cracker Sprayer: None. Estimated Blood Loss: < 1 mL. Specimen: 3500 mL of cloudy yellow fluid , samples sent to laboratory. Technique: Informed consent was obtain ed. The risks of pain, bleeding, infection, bowel perforation, injury to adjacent structures, and adverse medication react ions were discussed with the patient. After informed consent was o btained, the patient's abdomen was scanned. The right lower quadrant of the abdomen was selected for paracentesis. After the largest fl uid pocket area was marked, and the anterior abdominal wall was eval uated with color Doppler to exclude presence of blood vessels lemuel sing the area, the skin was prepped and draped in the usual sterile manner. After local anesthesia was achieved with lidocaine, a 5 [place] one-step catheter was advanced into the peritoneal cavity under ultrasound guidance. After completion of drainage, the cathet er was removed. There was no evidence of complication. Impression: Successful ultrasound guided paracentesi s. Signed: Deanna Barraza MD Report Verified Date/Time: 08/19/2019 13:52:23 Reading Location: [facility] [id number] [facility] Reading Room Electronically signed by: DEANNA BARRAZA MD o n 08/19/2019 01:52 PM Procedure Note Interface, External Ris In - 08/19/2019 3:16 PM APPLICATIONS INTERN FINAL REPORT Ultrasound guided paracentesis Clinical History: Ascites. Sedation: None. Building Equipment Operator: Aure Huerta PA-C Supervising Physician: Deanna Barraza MD Cracker Sprayer: None. Estimated Blood Loss: < 1 mL. Specimen: 3500 mL of cloudy yellow fluid , samples sent to laboratory. Technique: Informed consent was obtaine d. The risks of pain, bleeding, infection, bowel perforation, injury to adjacent structures, and adverse medication react ions were discussed with the patient. After informed consent was ob tained, the patient's abdomen was scanned. The right lower quadrant o f the abdomen was selected for paracentesis. After the largest flu id pocket area was marked, and the anterior abdominal wall was eval uated with color Doppler to exclude presence of blood vessels lemuel sing the area, the skin was prepped and draped in the usual sterile manner. After local anesthesia was achieved with lidocaine, a 5 [place] one-step catheter was advanced into the peritoneal cavity under ultrasound guidance. After completion of drainage, the cathet er was removed. There was no evidence of complication. Impression: Successful ultrasound guided paracentesi s. Signed: Deanna Barraza MD Report Verified Date/Time: 08/19/2019 1 3:52:23 Reading Location: [facility] [id number] [facility] Reading Room Performing Organization Address City/[facility] Phone Number [facility] Body fluid cell count with differential (08/19/2019 11:12 AM APPLICATIONS INTERN)Only the most recent of6 resultswithin the time period is included. Pathologist Sig nature Appearance Hazy (A) Clear [facility] Color Straw Colorless, [facility] RBCs 1,040 (H) <=1 /cu mm [facility] Adjusted WBC Count 217 (H) <=5 /cu mm [facility] Lining Cells 4 (H) <=1 /cu mm [facility] % Segs 61 % [facility] % Lymphs 23 % [facility] % Monos 15 % [facility] % Eos 1 % [facility] % Baso 0 % [facility] Container Body Fluid EDTA Tube [facility] Specimen Body Fluid - Ascites (disorder) Performing Organization Address City/[facility]/Zipcode Phone Number [place] [id number] [place] [address] [id number] [place] POC-Creatinine (08/19/2019 11:07 AM APPLICATIONS INTERN)Only the most recent of4 resultswithin the time period is included. POC-Creatinine 1.9 (H)Comment: : 0.6 - 1.3 [facility] mg/dL [address], [id number]: Activities Aide/Technicia n ID = [id number] for SHOULDERS, CORI POC-EGFR 36 mL/min/1.73M2 [facility] Specimen Blood Performing Organization Address City/State/Zipcode Phone Number [address] [address] [place] PT/aPTT (08/01/2019 4:37 PM APPLICATIONS INTERN)Only the most recent of3 resultswithin the time period is included. Pathologist Sig nature Protime 16.4 (H) 11.9 - 14.2 seconds [facility] INR 1.4 <=5.9 [facility] PTT 30.1 22.5 - 36.0 seconds [facility] Specimen Blood Narrative Performed At Effective 11/26/2018: PT Reference Range [facility] Change New: 11.9-14.2 Previous: 11.7-14.7 RECOMMENDED COUMADIN/WARFARIN INR THERAPY RANGES STANDARD DOSE: 2.0-3.0 Includes: PROPHYLAXIS for venous thrombosis, systemic embolization; TREATMENT for venous thrombosis and/or pulmonary embolus. HIGH RISK: Target INR is 2.5-3.5 for patients wiht mechanical heart valves. Performing Organization Address City/State/Zipcode Phone Number [address] [address] [place] Paracentesis (08/01/2019 3:57 PM APPLICATIONS INTERN) Narrative Performed At Hernan Stock MD 08/02/2019 7:15 PM Paracentesis Date/Time: 08/01/2019 9:32 PM Performed by: Hernan Stock MD Authorized by: Hernan Stock MD Consent: Verbal consent obtained. Rosy pringle consent obtained. Consent given by: patient Patient understanding: patient states understanding of the procedure being performed Patient consent: the patient's understan ding of the procedure matches consent given Procedure consent: procedure consent mat ches procedure scheduled Relevant documents: relevant documents p resent and verified Test results: test results available and properly labeled Site marked: the operative site was sujata ed Imaging studies: imaging studies availab le Required items: required blood products, implants, devices, and special equipment available Patient identity confirmed: verbally wit h patient Time out: Immediately prior to procedure a "time out" was called to verify the correct patient, procedure, equipmen t, network support and site/side marked as required. Procedure purpose: therapeutic Indications: abdominal discomfort second mague to ascites Anesthesia: local infiltration Anesthesia: Local Anesthetic: lidocaine 1% without e pinephrine Anesthetic total: 5 mL Sedation: Patient sedated: no Needle gauge: 18 Ultrasound guidance: yes Puncture site: right lower quadrant Fluid appearance: bilious Patient tolerance: Patient tolerated the procedure wel l with no immediate complications Immediate Post-Procedure Note Date/Time: 08/01/2019 9:10 PM Assistants to the procedure: None Pre-procedure diagnosis: ascitis Post-procedure diagnosis: Same Procedures Performed: Paracentesis Specimens removed: None Estimated blood loss (mL): None Type of anesthesia: None Grafts or Implants: None Comments: 500 cc drained There was no large bore paracentecic kit available TRANSFUSION SERVICE REPORT - SCAN (07/28/2019 6:26 PM APPLICATIONS INTERN)Only the most recent of3 resultswithin the time period is included. Narrative Performed At This result has an attachment that is no t available. REPORT OF PROCEDURE - ENDOSCOPY URL (07/28/2019 3:39 PM APPLICATIONS INTERN) Narrative Performed At This result has an attachment that is no t available. Body fluid culture (07/27/2019 6:00 PM APPLICATIONS INTERN)Only the most recent of2 results within the time period is included. Result No growth [facility] Gram Stain Result 2+ White blood [facility] cells seen [facility] Gram Stain Result No organisms seen [facility] Specimen Body Fluid - Ascites (disorder) Performing Organization Address City/State/Zipcode Phone Number [facility] [address] [place] [address] CENTER POCT OCCULT BLOOD STOOL (GUIAC) [facility] ED & CEC'S ONLY (07/27/2019 1:51 PM APPLICATIONS INTERN) Pathologist Sig nature Fecal Occult Blood Positive (A) Negative (Guiac), POC QC Result QC Acceptable Acceptable?, POC FOB Card Lot #, POC [id number] 08-22 FOB Developer Lot # [id number].CDComment: POSITIVE Specimen Stool Glucose Peritoneal Fluid (07/07/2019 11:28 AM APPLICATIONS INTERN) Glucose, 130 mg/dL [facility] Peritoneal Fluid Comment: INCORPORATED Reference Range approximates that found in serum. Specimen Body Fluid - Ascites (disorder) Narrative Performed At Performing Lab [facility] [address] [address] [place] [address] Chun Dunen MD, PhD, JEAN Performing Organization Address [facility] Phone Number [facility] [place] [address] INCORPORATED [id number] [place] Protein, Total, Peritoneal Fluid (07/07/2019 11:26 AM APPLICATIONS INTERN) Pathologist Sig nature PROTEIN, TOTAL, 0.9 [facility] PERITONEAL FLUID INCORPORATED Specimen Body Fluid - Ascites (disorder) Narrative Performed At This result has an attachment that is no t available. Performing Organization Address [facility] Phone Number [facility] [place] [address] INCORPORATED [id number] [place] Lactate Dehydrogenase (LD), Peritoneal Fluid (07/07/2019 11:26 AM APPLICATIONS INTERN) Pathologist Sig nature LACTATE DEHYDROGENASE 32 <63 U/L [facility] (LD), PERITONEAL FLUID INCORPORATED Specimen Body Fluid - Ascites (disorder) Narrative Performed At Performing Lab [facility] [employer] [place] [address] [place] [address] Chun Dunne MD, PhD, JEAN Performing Organization Address [facility] Phone Number [facility] [place] [address] INCORPORATED [id number] [place] Respiratory Panel [facility] (07/06/2019 12:34 PM APPLICATIONS INTERN) Human Metapneumovirus Not detected Not detected, [facility] Rhinovirus Not detected Not detected, [facility] Influenza A Not detected Not detected, [facility] INFLUENZA A (NO [facility] SUBTYPE) [facility] Influenza A subtype H1 [facility] Influenza A Subtype H3 [facility] Influenza A Subtype [facility] H1-2009 [facility] Influenza B Not detected Not detected, [facility] Respiratory Syncytial Not detected Not detected, [facility] Virus [facility] Parainfluenza Virus 1 Not detected Not detected, [facility] Parainfluenza Virus 2 Not detected Not detected, [facility] Parainfluenza virus 3 Not detected Not detected, [facility] Parainfluenza Virus 4 Not detected Not detected, [facility] Adenovirus Not detected Not detected, [facility] Coronavirus 229E Not detected Not detected, [facility] Coronavirus HKU1 Not detected Not detected, [facility] Coronavirus NL63 Not detected Not detected, [facility] Coronavirus OC43 Not detected Not detected, [facility] Bordetella Pertussis Not detected Not detected, [facility] Chlamydophila Not detected Not detected, [facility] Pneumoniae [facility] Mycoplasma Pneumoniae Not detected Not detected, [facility] Specimen Nasopharyngeal - Nasopharyngeal wall str ucture (body structure) Narrative Performed At Other viruses and bacteria not targeted by [facility] this PCR panel cannot be excluded; therefore clinical correlation and follow up of serology, culture results, and other molecular studies is required. The results are not intended to be used as the sole means for clinical diagnosis or patient management decisions. This sample was tested at the [facility] Molecular Diagnostics Laboratory using the [employer] FilmArray Respiratory Panel. It is FDA cleared and has been verified and approved by the [facility] Molecular Diagnostics Laboratory for clinical use on nasopharyngeal swab specimens. The performance of the FilmArray RP has not been established in individuals who received influenza vaccine. Recent administration of a nasal influenza vaccine may cause false positive results for Influenza A and/or Influenza B. Performing Organization Address City/State/Zipcode Phone Number [facility] [address] [place] [address] CENTER after 06/07/2019 Insurance Payer Benefit Plan Subscriber ID Effective Dates Phone Address Type / Group MEDICAID - [facility] [id number] 2019-Georgina Gutierrez editzel MEDICAID MGD STAR PLAN [facility] (Home) [place] [address] Advance Directives For more information, please contact: [phone] Code Status Date Activated Date Inactivated Comments Full Code 04/24/2020 10:19 PM 05/01/2020 4:12 PM This code status was determined by: Patient Full Code 04/24/2020 8:55 PM 04/24/2020 10:18 PM This code status was determined by: Patient Full Code 02/23/2020 5:32 PM 02/26/2020 3:36 PM This code status was determined by: Patient Full Code 12/10/2019 7:02 PM 12/11/2019 12:37 PM This code status was determined by: Patient Full Code 08/31/2019 2:48 PM 09/01/2019 6:15 PM This code status was determined by: Patient Name Relationship Healthcare Agent Communication Relationship Chika Desouza Daughter Health Care Agent Abdifatah Desouza Son Second Alternate Health Care Agent (Mobile)
--- OUTSIDE RECORDS SUMMARY | 2020-06-07 18:56 | XMS REPORT | Continuity of Care Document ---
:1955 Author Organization [facility] t Address [address] [place] [address] Care Team Providers Name Role Phone Ramiro Centeno MD Primary Care Physician Ashley Skinner NP Attending Clinician Nestor Myers MD Attending Clinician Chandana Attending Clinician Unavailable Robert Carlton MD Attending Clinician Larry Attending Clinician Unavailable Bimal HERCULES, Yanet Attending Clinician Unavailable Michael HERCULES, C Attending Clinician Unavailable Homero HERCULES, R Attending Clinician Unavailable Rody Macias Attending Clinician Unavailable Michael HERCULES Attending Clinician Unavailable Dennys HERCULES Attending Clinician Unavailable Tahir ONTIVEROSW Attending Clinician Unavailable Víctor MCDOWELL, T Attending Clinician Unavailable COSME Attending Clinician Unavailable Cosme ARGUETA Attending Clinician Bryan Hernandez MD Attending Clinician Giovanni Attending Clinician Unavailable Ivette ARGUETA Attending Clinician Fabiana HERCULES Attending Clinician Unavailable Garrett Attending Clinician Unavailable Zahra Green MD Attending Clinician Jose Spicer Attending Clinician Unavailable Severo See MD Attending Clinician Michael Attending Clinician Unavailable Ira Quick NP Attending Clinician Severo SEE Attending Clinician Unavailable Rudi HERCULES Attending Clinician Unavailable Ana Cristina SPOT BILLING CLERK, L Attending Clinician Unavailable Delgado Del Toro MD Attending Clinician ZAHRA GREEN Attending Clinician Unavailable Luz Goel MA Attending Clinician Unavailable NESTOR MYERS Attending Clinician Unavailable Joao Davis MD Attending Clinician SWETA HENNESSY Attending Clinician Unavailable Sweta Hennessy MD Attending Clinician Charlie Gross MD Attending Clinician BRYAN HERNANDEZ Attending Clinician Unavailable Ez Eastman MD Attending Clinician Denis RUIZ Attending Clinician Unavailable Marielena Smith Attending Clinician Zenaida Mckinney PA-C Attending Clinician Darrell HERCULES Attending Clinician Unavailable Jas HERCULES Attending Clinician Unavailable Que Santos MD Attending Clinician Odilia Wolfe MA Attending Clinician Unavailable ROBIN Attending Clinician Unavailable Robin ARGUETA Attending Clinician Cristian ARGUETA V. Attending Clinician Sathish Lagos Attending Clinician Yariel ARGUETA Attending Clinician Renetta Cnaales Attending Clinician Unavailable Willie Attending Clinician Unavailable Casey Morales MD Attending Clinician Gerardo Hernandes MD Attending Clinician Marcial Galindo MD Attending Clinician Philip Attending Clinician Unavailable Addis Scanlon MD Attending Clinician Marielena Gomez NP Attending Clinician John Ortiz MD Attending Clinician Patricia Molina MD Attending Clinician Yumiko Fabian MD Attending Clinician Unavailable John ORTIZ Attending Clinician Unavailable Tommy Fish DO Attending Clinician Anastacio HERCULES, Y Attending Clinician Unavailable Rey Pardo Attending Clinician Unavailable Sarita Benton MD Attending Clinician Juan Stock MD Attending Clinician SARITA BENTON Attending Clinician Unavailable Esme ARGUETA Attending Clinician Fernando Day MD Attending Clinician [phone] Antoinette Teresa MD Attending Clinician Judy Nicolas CRNA Attending Clinician FIDENCIO JAIN Attending Clinician Unavailable Fidencio Jain MD Attending Clinician Randall RUIZ Attending Clinician Unavailable Andre Vega MD Attending Clinician ANDRE VEGA Attending Clinician Unavailable Vamshi BARLOW, Maritza Attending Clinician Cristo Diaz MD Attending Clinician CRISTO DIAZ Attending Clinician Unavailable YARIEL Attending Clinician Unavailable FAITH MARTINEZ Attending Clinician Unavailable KATI HERRERA Attending Clinician Unavailable Ez EASTMAN Attending Clinician Unavailable MYLES SERRANO Attending Clinician Unavailable Myles Serrano MD Attending Clinician KEN RAZA Attending Clinician Unavailable NOHEMY FERRER Attending Clinician Unavailable BRYAN HERNANDEZ Admitting Clinician Unavailable rGeg CORONEL Admitting Clinician Unavailable Severo SEE Admitting Clinician Unavailable PATRICIA MOLINA Admitting Clinician Unavailable ESME Admitting Clinician Unavailable FIDENICO JAIN Admitting Clinician Unavailable Ez EASTMAN Admitting Clinician Unavailable MYLES SERRANO Admitting Clinician Unavailable ANDRE VEGA Admitting Clinician Unavailable YARIEL Admitting Clinician Unavailable Payers Payer Name Policy Type Policy Effective Date Expiration Date Sour ce Number MEDICAID - [id number] 2019 [facility] MEDICAID MGD 00:00:00 - Medical [facility] Center STAR [id number] aid Contracted Problems Condition Condition Condition Status Onset Resolution Last Treating Co mments Source Name Details Category Date Date Treatment Clinician Date CKD CKD Disease Active 2019-[address] [facility] kidney kidney 00:00: t & Plan: Medical disease) disease) 00 He has Center CKD and does not currently require dialysis but has required it in the past. He will continue follow up with nephrolog y. Impaired Impaired Disease Active 2019-[facility]: t & Plan: Medical 00 He will Center benefit from home physical therapy. He states that he has issues with his ambulatio n while ambulatin g at home. Drug use Drug use Disease Active 2019-07 [facility]: t & Plan: Medical 00 He states Center that he consumes "marijuan a gummies" for anxiety. He was instructe d to abstain from consuming marijuana containin g treats. Pre-transp Pre-transp Disease Active 2019-[address] lant lant 0-[facility] 00:00: t & Plan: Medical for liver for liver [address] transplant transplant be considere d a high risk candidate due to his social history s/p lung transplan t. He will require routine imaging/t esting and official review at [facility] for official candidacy . Volume Volume Disease Active [facility] overload overload 8-25 [facility] - 00:00: Medical 00 Center NOHEMI (acute NOHEMI (acute Disease Active [facility] kidney kidney 8-25 [facility] - injury) injury) 00:00: Medical 00 Center Dyspnea Dyspnea Disease Active [facility] and and 6-11 [facility] - respirator respirator 00:00: Me dical y y 00 Center abnormalit abnormalit y y Portal Portal Disease Active [facility] St hypertensi hypertensi 5-07 [facility] - on on 00:00: t & Plan: Medical 00 Portal Center hypertens ion with evidence by ascites (s/p TIPs), varices and splenomeg jackelyn. S/P TIPS S/P TIPS Disease [facility] (transjugu (transjugu 3-02 [facility] - lar lar 00:00: Medical intrahepat intrahepat 00 Ce nter ic ic portosyste portosyste apoorva shunt) apoorva shunt) Scrotal Scrotal Disease Active [facility] swelling swelling 2- [facility] - 00:00: Medical 00 Center Esophageal Esophageal Disease Active [facility] ulcer ulcer 1- [facility] - 00:00: Medical 00 [place] Sarcopenia Sarcopenia Disease Active 2018-[address] 1-07 [facility] - 00:00: Medical 00 [place] Hypotensio Hypotensio Disease Active 2018-[address] n due to n due to 1 [facility] - drugs drugs 00:00: Medical 00 Center Chest Chest Disease Active 2018-[address] [facility] discomfort discomfort 0-23 [facility] - 00:00: Medical 00 Center Other Other Disease Active Last [facility] cirrhosis cirrhosis 6 [facility] - of liver of liver 00:00: t & Plan: Med ical 00 His liver Center biopsy in August indicated fibrosis stage 4 of 4, consisten t with cirrhosis . Chronic Chronic Disease Active [facility] diarrhea diarrhea 6- [facility] - 00:00: Medical 00 Center Cancer Cancer Disease Active [facility] screening screening 6-07 [facility] - 00:00: Medical 00 [place] Acute on Acute on Disease Active [facility] chronic chronic 6-30 [facility] - respirator respirator 00:00: Me dical y failure y failure 00 Cent er with with hypoxemia hypoxemia Acute Acute Disease Active [facility] kidney kidney 6-30 [facility] - injury injury 00:00: Medical (nontrauma (nontrauma 00 Ce nter tic) tic) Uremic Uremic Disease Active [facility] acidosis acidosis 6-30 [facility] - 00:00: Medical 00 Center Lactic Lactic Disease Active [facility] acid acid 6-30 [facility] - acidosis acidosis 00:00: Medica l 00 Center Metabolic Metabolic Disease Active [facility] acidosis acidosis 6-29 [facility] - 00:00: Medical 00 Center Acute Acute Disease Active [facility] urinary urinary 5-04 [facility] - tract tract 00:00: Medical infection infection 00 Cent er URI (upper URI (upper Disease Active [facility] respirator respirator 5-03 [facility] - y y 00:00: Medical infection) infection) 00 Ce nter Elevated Elevated Disease Active [facility] liver liver 623 [facility] - enzymes enzymes 00:00: Medical 00 Center Ascites Ascites Disease Active [facility] 6-23 [facility] - 00:00: Medical 00 Center Pneumonia Pneumonia Disease Active [facility] 5-06 [facility] - 00:00: Medical 00 Center Diarrhea Diarrhea Disease Active [facility] 2-26 [facility] - 00:00: Medical 00 Center Abdominal Abdominal Disease Active Overview: [facility] pain pain 8-30 [facility] - 00:00: Medical 00 [place] Gastropare Gastropare Disease Active [facility] sis sis 8-30 [facility] - 00:00: Medical 00 Center Immunosupp Immunosupp Disease Active [facility] ression ression 8-30 [facility] - 00:00: Medical 00 [place] 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 He will continue follow up with pulmonary . Bronchiect Bronchiect Disease Active 2011-[address] asis asis 07-07 [facility] - 00:00: Medical 00 [place] GERD GERD Disease Active 2011-[address] [facility] (gastroeso (gastroeso 07-07 [facility] - phageal phageal 00:00: [facility] reflux reflux 00 [place] disease) disease) CVID CVID Disease Active 2011-[address] [facility] (common (common 07-07 [facility] - variable variable 00:00: Medica l immunodefi immunodefi 00 Ce nter ciency) ciency) COPD COPD Disease Active 2011-[address] [facility] (chronic (chronic 07-07 [facility] - obstructiv obstructiv 00:00: Or dical e e 00 Center pulmonary pulmonary disease) disease) Acute Acute Disease Active [facility] respirator respirator [facility] - y distress y distress [facility] Disease [facility] arrest arrest [facility] History of Past Illness Condition Condition Condition Status Onset Resolution Last Treating Co mments Source Name Details Category Date Date Treatment Clinician Date Septic Septic Disease Resolve 2020-03-12 2020-03-[address] [facility] shock shock d 12-28 00:00:00 19:13:43 [facility] - 00:00: Medical 00 [place] Severe Severe Disease Resolve 2020-03-12 2020-03-[address] [facility] [facility] sepsis sepsis d 12-27 00:00:00 19:13:40 [facility] - 00:00: Medical 00 [place] Nausea & Nausea & Disease Resolve 2013-2020-03-12 2020-03-[address] [facility] vomiting vomiting d 0- 00:00:00 19:13:05 [facility] - 00:00: Medical 00 [place] Cirrhosis Cirrhosis Disease Resolve 2019-11-05 2019-11-[address] [facility] [facility] d 1- 00:00:00 11:30:52 [facility] - 00:00: Medical 00 [place] S/P lung S/P lung Disease Resolve 2019-11-05 2019-11-[address] [facility] transplant transplant d 03-11 00:00:00 11:31:32 [facility] - 00:[facility]: Medical 00 [place] Transamini Transamini Disease Resolve 2019-09-18 2019-09-[address] [facility] [facility] tis tis d 12-28 00:00:00 18:19:09 [facility] - 00:00: Medical 00 [place] Lung Lung Disease Resolve 2019-09-18 2019-09-[address] [facility] transplant transplant d 03-09 00:00:00 18:19:48 [facility] - ed ed 00:00: Medical 00 [place] Allergies, Adverse Reactions, Alerts This patient has no known allergies or adverse reactions. Family History Family Member Diagnosis Comments Start Date Stop Date Source Natural brother Hypertension [facility] Natural father Cancer [facility] Natural mother Cancer [facility] Paternal aunt Cancer [facility] Social History Social Habit Start Date Stop Date Quantity Comments Source Sex Assigned At [facility] Cigarettes smoked 2020-06-05 2020-06-05 [facility] - current (pack per 00:00:00 00:00:00 [facility] Center day) - Reported Cigarette 2020-06-05 2020-06-05 [facility] - pack-years 00:00:00 00:00:00 [facility] Tobacco use and 2020-06-05 2020-06-05 Never used [facility] - exposure 00:00:00 00:00:00 [facility] Alcohol intake 2020-06-05 2020-06-05 Current [facility] - 00:00:00 00:00:00 non-drinker of Medical Ce nter alcohol (finding) History of tobacco 2003-01-17 [facility] use 00[facility] Center Smoking Status Start Date Stop Date Source Former smoker 2020-06-05 00:00:00 2020-06-05 00:00:[address] [facility] - [facility] Center Medications Ordered Filled Start Stop Current Ordering Indication Dosage Frequency Signature Comments Components Source Medication Medication Date Date Medication? Clinician (SIG) Name Name multivitami 2019-07 Yes 1{capsu QD Take [address] n capsule 1-20 le} capsule by [facility] - 09:22: mouth Medical 49 daily. [place] folic acid 2019-07 Yes 1mg QD Take [address] (FOLVITE) 1 1-20 by mouth [facility] - MG tablet 09:22: daily. Medica l 49 [place] lipase-prot 2019-07 Yes Take [address] [facility] ease-amylas 1-16 tabs po [facility] - e (CREON) 00:00: with Medical 36,000-114, 00 meals. [place] 000- 180,000 unit CpDR capsule gabapentin 2019-07 Yes Itching 300mg Take [address] (NEURONTIN) 1-05 capsules [facility] - 100 MG 00:00: (300 mg Medical capsule 00 total) by Center mouth every night as needed. lactulose 2019-07 Yes 20g Q.[id number] Take [address] [facility] (CHRONULAC) 07-01 [id number] mLs (20 g [facility] - 20 gram/30 00:00: 3D total) by Or dical mL solution 00 mouth 3 Cente r (three) times daily Take up to three times daily for a goal of 2-3 bowel movement per day. sevelamer 2019-07- Yes 800mg Take [address] [facility] (RENVELA) 07-01 tablet [facility] - 800 mg 00:00: 23:59 (800 mg Medical tablet 00 :00 total) by Center mouth 3 (three) times daily with meals. sodium 2019-07- Yes 1300mg Q.[id number] Take [address] [facility] [address] bicarbonate 07-01 [id number] tablets [facility] - 650 MG 00:00: 23:59 3D (1,300 mg Medic al tablet 00 :00 total) by Center mouth 3 (three) times daily. calcitrioL 2019-07- Yes .25ug QD Take [address] [facility] [address] (ROCALTROL) 07-01 capsule [facility] - 0.25 MCG 00:00: 23:59 (0.25 mcg Med ical capsule 00 :00 total) by Center mouth daily For kidney disease. ondansetron 2019-07 Yes 4mg Take [address] (ZOFRAN) 4 0-08 by mouth 3 [facility] es - MG tablet 00:00: (three) Medic al 00 times Center daily as needed . AZITHROmyci Yes 250mg Q.[id number] Take [address] [facility] n 03-30 [id number] tablet [facility] - (ZITHROMAX) 00:00: 3W (250 mg Med ical 250 MG 00 total) by Center tablet mouth 3 (three) times a week I Take by mouth as directed.. furosemide 2019- No Hypervolemi 40mg Take [address] [facility] (LASIX) 40 03-30 a, tablet (40 [facility] - MG tablet 00:00: 00:00 unspecified mg total) Medical 00 :00 hypervolemi by mouth Cent er a type daily as needed. AZITHROmyci 2019- No 250mg Q.[id number] Take [address] [facility] n 03-28 [id number] tablet [facility] - (ZITHROMAX) 00:00: 00:00 3W (250 mg Me dical 250 MG 00 :00 total) by Center tablet mouth 3 (three) times a week I Take by mouth as directed.. ergocalcife 2020- No 38017H Q7D Take [address] rol 03-03 capsule [facility] - (ERGOCALCIF 00:00: 23:59 (50,000 Me dical FLORENTIN) 1,250 00 :00 Units Center mcg (50,000 total) by unit) mouth once capsule a week Every . calcitrioL 2020- No .25ug QD Take [address] [address] (ROCALTROL) 02-26 capsule [facility] - 0.25 MCG 00:00: 00:00 (0.25 mcg Med ical capsule 00 :00 total) by Center mouth daily For kidney disease. gabapentin Yes Itching 100mg QD Take [address] (NEURONTIN) 02-25 capsule [facility] - 100 MG 00:00: (100 mg Medical capsule 00 total) by Center mouth nightly. tacrolimus 2020- No .5mg QD Take [address] [facility] (PROGRAF) 02-25 capsule [facility] - 0.5 MG 00:00: 23:59 (0.5 mg Medical capsule 00 :00 total) by Center mouth daily Starting 02/26. lactulose 2019- No 20g Q.[id number] Take [address] [facility] (CHRONULAC) 02-25 [id number] mLs (20 g [facility] - 20 gram/30 00:00: 00:00 3D total) by [facility] mL solution 00 :00 mouth 3 Cente r (three) times daily Take up to three times daily for a goal of 2-3 bowel movement per day. furosemide No 40mg Q.[id number] Take [address] [facility] (LASIX) 40 02-25 [id number] tablet (40 [facility] - MG tablet 00:00: 00:00 3D mg total) Me dical 00 :00 by mouth 3 Center (three) times daily. gabapentin 2019- No Itching 300mg Take [address] [facility] (NEURONTIN) 02-15 capsule [facility] - 300 MG 00:00: 00:00 (300 mg Medical capsule 00 :00 total) by Center mouth once at bedtime. citric 2019- No 30mL Take [address] [facility] acid-sodium 02-04 mLs by [facility] - citrate 00:00: 00:00 mouth 3 Medica l (BICITRA) 00 :00 (three) Center 500-334 times mg/5 mL daily with solution meals for 30 days. spironolact 2019- No Other Hold per [facility] one 02-04 ascites liver [facility] - (ALDACTONE) 00:00: 00:00 team. Medi isis 50 MG 00 :00 Center tablet midodrine 2019- No Patient [facility] (PROAMATINE 02-04 states he [facility] - ) 5 MG 00:00: 00:00 is not Medical tablet 00 :00 taking. Center sodium 2020-0 2020- No 30g Take [address] [facility] polystyrene 8-07 08-07 mLs (30 g [facility] - (KAYEXALATE 00:00: 23:59 total) by Medical ) 15 00 :00 mouth once Center gram/60 mL for 1 suspension dose. sodium 2019-2019- No Hyperkalemi 15g Take [address] polystyrene 7-30 07-30 a mLs (15 g [facility] - (KAYEXALATE 00:00: 23:59 total) by Medical ) 15 00 :00 mouth once Center gram/60 mL for 1 suspension dose. diphenhydrA 2019-2019- No 25mg [facility] MINE 01-25 07- [facility] - (BENADRYL) 10:15: 10:10 Medica l injection 00 :00 Center 25 mg furosemide 2019-2019- No Other 20mg QD Take [address] [facility] (LASIX) 20 12-10 ascites tablet (20 [facility] - MG tablet 00:00: 00:00 mg total) Me dical 00 :00 by mouth Center daily for 180 days. tacrolimus 2019- No .5mg Take [address] [facility] (PROGRAF) 12-10 capsule [facility] - 0.5 MG 00:00: 00:00 (0.5 mg Medical capsule 00 :00 total) by Center mouth Daily (0600) On , , Sat, Sat. spironolact 2019-0 2019- No Other 50mg QD Take [address] one 12-10 08- ascites tablet (50 [facility] - (ALDACTONE) 00:00: 00:00 mg total) Medical 50 MG 00 :00 by mouth Center tablet daily for 180 days. diphenhydrA 2019-2019- No 25mg [facility] MINE 6 06- [facility] - (BENADRYL) 10:30: 10:20 Medica l injection 00 :00 Center 25 mg gabapentin 2019- 2020- No Itching 300mg Take [address] [facility] (NEURONTIN) 4-14 08-18 capsule [facility] - 300 MG 00:00: 00:00 (300 mg Medical capsule 00 :00 total) by Center mouth once at bedtime. hydrOXYzine 2019-2019- No Itching 25mg Take [address] [facility] (ATARAX) 25 09-28 04- tablet (25 L ukes - MG tablet 00:00: 23:59 mg total) Me dical 00 :00 by mouth Center once in morning for 1 dose. furosemide 2019-0 2020- No Other 20mg QD Take [address] [facility] (LASIX) 20 09-16-12 ascites tablet (20 [facility] - MG tablet 00:00: 00:00 mg total) Me dical 00 :00 by mouth Center daily for 180 days. spironolact 2019- 2020- No Other 50mg QD Take [address] [facility] one 09-16-12 ascites tablet (50 [facility] - (ALDACTONE) 00:00: 00:00 mg total) Medical 50 MG 00 :00 by mouth Center tablet daily for 180 days. predniSONE 2019-0 Yes S/P lung 4mg QD Take [address] (DELTASONE) 3-05 transplant tablets (4 [facility] - 1 MG tablet 00:00: (HCC) mg total) Medical 00 by mouth Center daily. rifAXIMin 0 Yes 550mg Q.5D Take 1 [facility] 550 mg Tab 3-03 tablet [facility] - 00:00: (550 mg Medical 00 total) by Center mouth 2 (two) times daily. predniSONE 2019-0 2020- No S/P lung 4mg QD Take [address] [facility] (DELTASONE) 3-02 03-05 transplant tablets (4 [facility] - 1 MG tablet 00:00: 00:00 (HCC) mg total) Medical 00 :00 by mouth Center daily. tacrolimus 2019-0 2020- No .5mg Take [address] [facility] (PROGRAF) 2- capsule [facility] - 0.5 MG 00:00: 00:00 (0.5 mg Medical capsule 00 :00 total) by Center mouth Daily (06). tacrolimus 2020-0 2020- No .5mg Q.[id number] Take [address] [facility] (PROGRAF) 2- [id number] capsule [facility] - 0.5 MG 00:00: 00:00 3W (0.5 mg Medical capsule 00 :00 total) by Center mouth 3 (three) times a week MON/SAT/ I. omeprazole 2019-0 2020- No 40mg QD Take [address] [facility] (PRILOSEC) 07-30- by mouth [facility] - 20 MG 13:24: 00:00 daily . Medical capsule 10 :00 Center omeprazole 2020-0 Yes 40mg Q.5D Take 2 [facility] (PRILOSEC) -30 capsules [facility] - 20 MG 00:00: (40 mg Medical capsule 00 total) by Center mouth 2 (two) times daily. sucralfate 2019-0 2020- No 1g Take [address] [facility] (CARAFATE) 07-30 02-29 mLs (1 g [facility] - 100 mg/mL 00:00: 23:59 total) by Me dical suspension 00 :00 mouth Center every 6 (six) hours for 30 days. tacrolimus 2019-0 2020- No .5mg Q.5D Take [address] [facility] (PROGRAF) 07-30-26 capsule [facility] - 0.5 MG 00:00: 00:00 (0.5 mg Medical capsule 00 :00 total) by Center mouth 2 (two) times daily. cefdinir 2019-0 2019- No 300mg Q.5D Take 1 [facility] (OMNICEF) 07-30- capsule [facility] - 300 MG 00:00: 23:59 (300 mg Medical capsule 00 :00 total) by Center mouth 2 (two) times daily for 2 days. omeprazole 2019-2019- No 40mg Q.5D Take [address] [facility] (PRILOSEC) 07-30-30 capsules [facility] - 20 MG 00:00: 00:00 (40 mg Medical capsule 00 :00 total) by Center mouth 2 (two) times daily. propranolol 2019-0 2019- No 10mg QD Take [address] [facility] (INDERAL) 07-08-08 by mouth [facility] - 10 MG 08:58: 00:00 daily. Medical tablet 27 :00 [place] simethicone 2019-0 Yes 80mg Take [address] [facility] (MYLICON) -08 tablet (80 [facility] - 80 MG 00:00: mg total) Medical chewable 00 by mouth [place] tablet every 6 (six) hours as needed (flatulenc e or gas). fludrocorti 2019-0 2020- No Hyperkalemi .1mg QD Take [address] [facility] sone 07-08 08-07 a tablet [facility] - (FLORINEF) 00:00: 00:00 (0.1 mg Med ical 0.1 mg 00 :00 total) by Center tablet mouth daily. levoFLOXaci 2019- No Fever, 500mg QD Take [address] [facility] n 1 01-15 unspecified tablet [facility] - (LEVAQUIN) 00:00: 23:59 fever cause (500 mg Medical 500 MG 00 :00 total) by Center tablet mouth daily for 7 days. levoFLOXaci 2018-07- No Fever, Take [address] n 2-08 unspecified tabs (500 [facility] - (LEVAQUIN) 00:00: 00:00 fever cause mg) day 1, Medical 250 MG 00 :00 then 1 tab Center tablet daily for 1 week.. lipase-prot 2018-07- No Take [address] [facility] ease-amylas 07-27 11-16 tabs po [facility] - e (CREON) 00:00: 00:00 with Medical 36,000-114, 00 :00 meals. Center 000- 180,000 unit CpDR capsule tacrolimus 2018-07- No .5mg Take [address] [facility] (PROGRAF) 07-27 capsule [facility] - 0.5 MG 00:00: 00:00 (0.5 mg Medical capsule 00 :00 total) by Center mouth Daily (0600). fludrocorti 2018-07- No Hyperkalemi .05mg QD Take 0.[address] sone 07-20 a tablets [facility] - (FLORINEF) 00:00: 00:00 (0.05 mg Me dical 0.1 mg 00 :00 total) by Center tablet mouth daily. midodrine 2018-07- No 5mg Q.[id number] Take [address] [facility] (PROAMATINE 07-06 [id number] tablet (5 [facility] - ) 5 MG 00:00: 00:00 3D mg total) Medic al tablet 00 :00 by mouth 3 Center (three) times daily. azithromyci 2019- No Lung 250mg Q.[id number] Take [address] [facility] n 6-14 07 transplante [id number] tablet [facility] - (ZITHROMAX) 00:00: 00:00 d (HCC) 3W (250 mg Medical 250 MG 00 :00 total) by Center tablet mouth 3 (three) times a week EVERY SATURDAY, SATURDAY, AND RODERICK. predniSONE 2019- No S/P lung TAKE FOUR [facility] (DELTASONE) 6-11 - transplant TABLETS BY Shea - 1 MG tablet 00:00: 00:00 ([facility]LY [facility]) MOUTH Med ical 00 :00 DAILY [place] [facility]- No Diarrhea, 1{capsu QD Take [address] [facility] [address] us 5-08-17 unspecified le} capsule by Rey ching - rhamnosus, 00:00: 00:00 type mouth Medic al GG, 00 :00 daily. [place] [facility] 10 billion cell capsule Immunizations Ordered Immunization Filled Immunization Date Status Commen ts Source Name Name INFLUENZA TRIVALENT 2019-04-[facility] IM 00:00:00 [facility] Pneumococcal Conjugate 2018-05-[address] [facility] [address] [facility] - (Prevnar) 13-Valent 00:00:00 Medic [facility] Influenza High Dose 2018-05-29 [facility] - Preservative Free IM 00:00:00 [facility] Influenza High Dose 2016-06-05 [facility] - Preservative Free IM 00:00:00 [facility] Influenza High Dose 2015-05-24 [facility] Preserv[facility] Free 00:00:00 [facility] [id number] Influenza, High Dose 2014-04-[address] [facility] Seasonal 00:00:00 [facility] Hepatitis B 2012-08-[address] [facility] 00:[facility]:00 [facility] Hepatitis B 2012-06-[address] [facility] - 00:[facility]:00 [facility] Influenza TIV (IM) 2012-03-[address] [facility] - 00:00:00 [facility] Pneumococcal 2008-07-[address] [facility] - Polysaccharide 00:00:00 Medical nter (Pneumovax) Vital Signs Vital Name Observation Time Observation Value Comments Source Body height 2020-05-20 09:22:00 175.3 cm [facility] Body weight 2020-05-20 09:22:00 49.487 kg [facility] BMI 2020-05-20 09:22:00 16.11 kg/m2 [facility] Systolic blood 2020-05-01 08:16:00 112 mm[Hg] [facility] Diastolic blood 2020-05-01 08:16:00 64 mm[Hg] [facility] Heart rate 2020-05-01 08:16:00 68 /min [facility] Body temperature 2020-05-01 08:16:00 36.5 Saray [facility] Respiratory rate 2020-05-01 08:16:00 18 /min [facility] Oxygen saturation in 2020-05-01 08:16:00 100 /min [facility] Arterial blood by Medical Ce nter Pulse oximetry Procedures Procedure Date / Time Performing Clinician Source Performed EBV ANTIBODY, IGG 2020-05-13 13:22:[address] [facility] POCT-GLUCOSE METER 2020-05-01 08:19:00 [place] Hernandez [facility] BASIC METABOLIC PANEL (7) 2020-05-01 05:03:00 Ernesot Funes [facility] HEPATIC FUNCTION PANEL 2020-05-01 05:03:00 Marin [facility] PROTHROMBIN TIME/INR 2020-05-01 05:03:00 [facility] MAGNESIUM 2020-05-01 05:03:00 [facility] PHOSPHORUS 2020-05-01 05:03:00 Marin [facility] TACROLIMUS LEVEL 2020-05-01 05:03:[address] [facility] B-TYPE NATRIURETIC FACTOR 2020-05-01 05:03:00 [facility] CBC W/PLT COUNT & AUTO 2020-05-01 05:03:00 Marin [facility] POCT-GLUCOSE METER 2020-04-30 11:54:00 [facility] POCT-GLUCOSE METER 2020-04-30 08:09:00 [place] Hernandez [facility] BASIC METABOLIC PANEL (7) 2020-04-30 05:32:00 Fajilan, Ernesto [facility] HEPATIC FUNCTION PANEL 2020-04-30 05:32:00 [facility] PROTHROMBIN TIME/INR 2020-04-30 05:32:00 Marin [facility] MAGNESIUM 2020-04-30 05:32:00 Marin [facility] PHOSPHORUS 2020-04-30 05:32:00 Marin [facility] TACROLIMUS LEVEL 2020-04-30 05:32:[address] [facility] B-TYPE NATRIURETIC FACTOR 2020-04-30 05:32:00 Marin [facility] (BNP) [facility] CBC W/PLT COUNT & AUTO 2020-04-30 05:32:00 Marin [facility] POCT-GLUCOSE METER 2020-04-29 11:58:00 [facility]ona [facility] FLOW PRA CLASS I WITH 2020-04-29 10:41:00 Ryan, Bhamidipati CH I [facility] - REFLEX TO ANTIBODY [facility] SPECIFICITY FLOW PRA CLASS II WITH 2020-04-29 10:41:00 Ryan, Bhamidipati C [facility] - REFLEX TO ANTIBODY [facility] SPECIFICITY HLA TYPING CI 2020-04-29 10:41:00 Ryan amidipati [facility] HLA TYPING CII 2020-04-29 10:41:00 Ryan, amidipati [facility] POCT-GLUCOSE METER 2020-04-29 08:23:00 AlonaMaine weston [facility] B-TYPE NATRIURETIC FACTOR 2020-04-29 06:00:00 [facility] BASIC METABOLIC PANEL (7) 2020-04-29 05:59:00 Mairn [facility] HEPATIC FUNCTION PANEL 2020-04-29 05:59:00 [facility] PROTHROMBIN TIME/INR 2020-04-29 05:59:00 Dominickkuldeep [facility] MAGNESIUM 2020-04-29 05:59:00 Shereeeduardo [facility] PHOSPHORUS 2020-04-29 05:59:00 Marin [facility] TACROLIMUS LEVEL 2020-04-29 05:59:[address] [facility] CBC W/PLT COUNT & AUTO 2020-04-29 05:59:00 Marin [facility] POCT-GLUCOSE METER 2020-04-28 21:47:00 Alona [facility] POCT-GLUCOSE METER 2020-04-28 17:38:00 Alona, [facility] POCT-GLUCOSE METER 2020-04-28 12:19:00 Alona [facility] US PELVIS WITH DOPPLER 2020-04-28 11:15:00 Josue [facility] POCT-GLUCOSE METER 2020-04-28 07:31:00 Alona [facility] PREPARE LEUKO-REDUCED RBC 2020-04-27 23:54:00 AlonaMaine weston [facility] POCT-GLUCOSE METER 2020-04-27 22:00:00 Alona, [facility] POCT-GLUCOSE METER 2020-04-27 17:54:00 Alona, [facility] HEMOGLOBIN AND HEMATOCRIT 2020-04-27 16:50:00 AlonaMaine weston a [facility] POCT-GLUCOSE METER 2020-04-27 16:49:00 Alona, [facility] POCT-ACT 2020-04-27 16:49:00 [facility] POCT-GLUCOSE METER 2020-04-27 15:22:00 [facility] POCT-GLU[facility]SE METER 2020-04-27 15:12:00 Alona, [place] [facility] POCT-ACT 2020-04-27 13:40:00 AlonaMaine weston [facility] POCT-GLUCOSE METER 2020-04-27 11:23:00 Kal[facility] R & L CATH / CORONARY 2020-04-27 11:13:00 Vahid Steele [facility] ANGIOS (+/- LV) [facility] POCT-GLUCOSE METER 2020-04-27 09:58:00 Alona [facility] BASIC METABOLIC PANEL (7) 2020-04-27 05:31:00 Marin [facility] HEPATIC FUNCTION PANEL 2020-04-27 05:31:00 Marin [facility] PROTHROMBIN TIME/INR 2020-04-27 05:31:00 Marin [facility] MAGNESIUM 2020-04-27 05:31:00 Marin [facility] PHOSPHORUS 2020-04-27 05:31:00 Marin [facility] TACROLIMUS LEVEL 2020-04-27 05:31:[address] [facility] B-TYPE NATRIURETIC FACTOR 2020-04-27 05:31:00 Marin [facility] (BNP) [facility] CBC W/PLT COUNT & AUTO 2020-04-27 05:31:00 Marin [facility] DIFFERENTIAL [facility] TRANSFUSE LEUKO-REDUCED RED 2020-04-26 20:54:02 Alona [place] [facility] BLOOD CELLS [facility] POCT-GLUCOSE METER 2020-04-26 19:48:00 Alona [place] [facility] US ABDOMEN COMPLETE 2020-04-26 16:07:00 Indio Pleitez [facility] US DOPPLER 2020-04-26 16:07:00 Alona [place] Kavehnorma [facility] TRANSFUSE LEUKO-REDUCED RED 2020-04-26 15:19:40 AlonaMaine [facility] BLOOD CELLS [facility] POCT-GLUCOSE METER 2020-04-26 12:18:00 AlonaMaine weston [facility] VITAMIN B12 AND FOLATE 2020-04-26 09:05:00 AlonaMaine weston C [facility] HAPTOGLOBIN 2020-04-26 09:05:00 Alona, [place] Adams [facility] ABORH, MANUAL 2020-04-26 08:06:00 AlonaMaine weston Kavehnorma [facility] CBC W/PLT COUNT & AUTO 2020-04-26 08:06:00 [place] Hernandez [facility] POCT-GLUCOSE METER 2020-04-26 07:46:00 AlonaMaine weston [facility] BASIC METABOLIC PANEL (7) 2020-04-26 05:31:00 Marin [facility] HEPATIC FUNCTION PANEL 2020-04-26 05:31:00 [facility]/INR 2020-04-26 05:31:00 Marin [facility] MAGNESIUM 2020-04-26 05:31:00 Marin [facility] PHOSPHORUS 2020-04-26 05:31:00 Marin [facility] TACROLIMUS LEVEL 2020-04-26 05:31:[address] [facility] B-TYPE NATRIURETIC FACTOR 2020-04-26 05:31:00 [facility]ha [facility] ([facility] LACTATE DEHYDROGENASE (LDH) 2020-04-26 05:31:00 [place] Hernandez [facility] RETICULOCYTE COUNT 2020-04-26 05:31:00 Alona, [facility] CBC W/PLT COUNT & AUTO 2020-04-26 05:31:00 Marin [facility] (CELLAVISION MANUAL DIFF) 2020-04-26 05:31:00 Marin [facility] POCT-GLUCOSE METER 2020-04-25 22:06:00 Alona [facility] BLOOD GAS, VENOUS 2020-04-25 21:40:00 [facility] FERRITIN 2020-04-25 19:55:00 [facility] IRON, TIBC, % SAT. (WITHOUT 2020-04-25 19:55:00 [facility] FERRITIN) [facility] VITAMIN D, 25-HYDROXY 2020-04-25 19:55:00 [facility] TOXICOLOGY SCREEN, SERUM 2020-04-25 19:53:00 [facility] PO[facility]SE METER 2020-04-25 15:14:00 Alona [facility] MISCELLANEOUS LAB ORDER 2020-04-25 14:44:00 Mary Ann, [facility] POCT-GLUCOSE METER 2020-04-25 11:21:00 Alona [facility] POCT-GLUCOSE METER 2020-04-25 07:35:00 Alona [facility] LACTIC ACID, VENOUS 2020-04-25 05:51:00 Marin [facility] FIBRINOGEN 2020-04-25 05:51:00 [facility] BASIC METABOLIC PANEL (7) 2020-04-25 04:16:00 Marin [facility] HEPATIC FUNCTION PANEL 2020-04-25 04:16:00 Marin [facility] MAGNESIUM 2020-04-25 04:16:00 Marin [facility] PHOSPHORUS 2020-04-25 04:16:00 Marin [facility] TACROLIMUS LEVEL 2020-04-25 04:16:[address] [facility] B-TYPE NATRIURETIC FACTOR 2020-04-25 04:16:00 Marin [facility] (BNP) [facility] IMMUNOGLOBULIN M (IGM) 2020-04-25 04:16:00 Marin [facility] LIPASE 2020-04-25 04:16:00 Marin [facility] CBC W/PLT COUNT & AUTO 2020-04-25 04:16:00 Marin [facility] PROTHROMBIN TIME/INR 2020-04-25 04:15:00 Marin [facility] IGG SUBCLASSES PANEL 2020-04-25 04:15:00 Marin [facility] XR ABDOMEN / KUB 1 VIEW 2020-04-25 01:19:00 Marin [facility] US RENAL COMPLETE 2020-04-25 01:05:00 Marin [facility] POCT-GLUCOSE METER 2020-04-25 00:29:00 Alona [facility] SARS-COV2/RT-PCR ([facility] 2020-04-25 00:05:00 Vahid Aguiar [facility] REF LABS) [facility] POCT-GLUCOSE METER 2020-04-24 23:40:00 Alona [facility] URINALYSIS W/ REFLEX URINE 2020-04-24 21:31:00 Vahid Aguiar [facility] SODIUM, RANDOM URINE 2020-04-24 21:31:00 Roman Myers [facility] CHLORIDE, RANDOM URINE 2020-04-24 21:31:00 Roman Myers [facility] POTASSIUM, RANDOM URINE 2020-04-24 21:31:00 Lucia, Roman Hui [facility] UREA NITROGEN, RANDOM URINE 2020-04-24 21:31:00 Lucia, Roman riley [facility] CREATININE, RANDOM URINE 2020-04-24 21:31:00 Lucia, [facility] PROTEIN, RANDOM URINE 2020-04-24 21:31:00 Lucia, [facility] LACTIC ACID, VENOUS 2020-04-24 21:05:00 Cosme, [facility] TACROLIMUS LEVEL 2020-04-24 21:05:00 Cosme, [facility] ECG 12-LEAD 2020-04-24 21:04:40 Unknown, Hl7 [facility] ECG 12-LEAD 2020-04-24 21:00:10 Unknown, Hl7 [facility] XR CHEST 2 VIEWS 2020-04-24 18:36:00 Cosme [facility] BLOOD GAS, VENOUS 2020-04-24 18:33:00 Cosme, [facility] PROCALCITONIN 2020-04-24 18:33:00 Cosme, [facility] TSH/FREE T4 IF INDICATED 2020-04-24 18:33:00 Cosme [facility] B-TYPE NATRIURETIC FACTOR 2020-04-24 18:33:00 Cosme, [facility] (BNP) [facility] T4, FREE 2020-04-24 18:33:00 Cosme, [facility] BLOOD CULTURE 2020-04-24 18:22:00 Cosme, [facility] LACTIC ACID, VENOUS 2020-04-24 18:22:00 Cosme, [facility] COMPREHENSIVE METABOLIC 2020-04-24 18:22:00 Cosme, [facility] PROTHROMBIN TIME/INR 2020-04-24 18:22:00 Cosme [facility] APTT 2020-04-24 18:22:00 Cosme [facility] TROPONIN I 2020-04-24 18:22:00 Cosme [facility] CBC W/PLT COUNT & AUTO 2020-04-24 18:22:00 Vahid Aguiar [facility] ED ECG INTERPRETATION 2020-04-24 17:38:57 Cosme [facility] CARDIAC CATH REPORT - SCAN 2020-04-24 00:00:00 Provider, Default [facility] REPORT OF PROCEDURE - 2020-04-24 00:00:00 Provider, Default [facility] ENDOSCOPY SCAN [facility] [place] MYOCARDIAL PERFUSION 2020-04-19 15:30:00 Vincenzo See [facility] - SPECT, PHARM(LEXISCAN) Medical C enter TREADMILL 2020-04-19 11:26:36 Unknown, Hl7 Doctor [facility] TOLERANCE(NON-NUCLEAR Medical Ce nter TREADMILL) ECG 12-LEAD 2020-04-19 11:13:30 Unknown, Hl7 [facility] ECG 12-LEAD 2020-04-19 11:12:55 Unknown, 7 [facility] CAROTID DOPPLER BILATERAL 2020-04-07 09:05:00 Aaron Green [facility] ECG 12-LEAD 2020-04-07 08:45:08 Unknown, 7 [facility] XR MANDIBLE 4 VIEWS MIN 2020-04-06 12:40:[address] [facility] XR CHEST 2 VIEWS 2020-04-06 12:40:00 Aaron Green [facility] XR DXA BONE DENSITY STUDY 2020-04-06 12:39:00 Aaron Green [facility] MISCELLANEOUS LAB ORDER 2020-04-06 10:55:00 Vincenzo See [facility] COMPREHENSIVE METABOLIC 2020-04-06 07:38:00 Aaron Green [facility] BILIRUBIN, DIRECT 2020-04-06 07:38:00 Aaron Green [facility] GAMMA GLUTAMYL TRANSFERASE 2020-04-06 07:38:00 Aaron Green [facility] (GGT) [facility] CALCIUM, IONIZED 2020-04-06 07:38:00 Aaron Green [facility] s [facility] MAGNESIUM 2020-04-06 07:38:00 Aaron Green [facility] PHOSPHORUS 2020-04-06 07:38:[address] [facility] LIPID PANEL 2020-04-06 07:38:[address] [facility] DRUG SCREEN, URINE, 2020-04-06 07:38:00 [facility] ZINC 2020-04-06 07:38:[address] [facility] URIC ACID 2020-04-06 07:38:00 Aaron Green [facility] T3 2020-04-06 07:38:[address] [facility] CYTOMEGALOVIRUS ANTIBODY, 2020-04-06 07:38:[address] [facility] IGM [facility] EBV ANTIBODY, IGM 2020-04-06 07:38:00 Aaron Green [facility] RPR 2020-04-06 07:38:[address] [facility] T SPOT TB 2020-04-06 07:38:[address] [facility] URINALYSIS W/ MICROSCOPIC 2020-04-06 07:38:00 Aaron Green [facility] ALPHA-1 ANTITRYPSIN 2020-04-06 07:38:00 Aaron Green [facility] - MUTATION ANALYSIS [facility] CRYPTOCOCCAL ANTIGEN 2020-04-06 07:38:[address] [facility] VARICELLA ZOSTER ANTIBODY, 2020-04-06 07:38:00 Aaron Green [facility] - IGG [facility] RUBELLA ANTIBODY, IGG 2020-04-06 07:38:[address] [facility] CBC W/PLT COUNT & AUTO 2020-04-06 07:38:00 Aaron Green [facility] DIFFERENTIAL [facility] FIBRINOGEN 2020-04-06 07:37:[address] [facility] PROTHROMBIN TIME/INR 2020-04-06 07:37:[address] [facility] APTT 2020-04-06 07:37:[address] [facility] ACTIN (SMOOTH MUSCLE) 2020-04-06 07:37:00 Aaron Green [facility] - ANTIBODY, IGG [facility] TRANSFERRIN 2020-04-06 07:37:[address] [facility] CERULOPLASMIN 2020-04-06 07:37:[address] [facility] VITAMIN D, 25-HYDROXY 2020-04-06 07:37:[address] [facility] ETHANOL 2020-04-06 07:37:[address] [facility] CARBOHYDRATE ANTIGEN 19-9 2020-04-06 07:37:[address] [facility] ([place] 19-9) [facility] CARCINOEMBRYONIC ANTIGEN 2020-04-06 07:37:00 Aaron Green [facility] (CEA) [facility] TSH 2020-04-06 07:37:[address] [facility] T4 2020-04-06 07:37:[address] [facility] HEPATITIS A ANTIBODY, IGG 2020-04-06 07:37:00 Aaron Green [facility] HEPATITIS A ANTIBODY, IGM 2020-04-06 07:37:00 Aaron Green [facility] HEPATITIS B SURFACE ANTIGEN 2020-04-06 07:37:[address] [facility] HEPATITIS B SURFACE 2020-04-06 07:37:00 Aaron Green [facility] uk - ANTIBODY [facility] HEPATITIS B CORE ANTIBODY, 2020-04-06 07:37:00 Aaron Green [facility] - TOTAL [facility] HEPATITIS B CORE ANTIBODY, 2020-04-06 07:37:00 Aaron Green [facility] - IGM [facility] HEPATITIS C ANTIBODY 2020-04-06 07:37:[address] [facility] HIV-1 ANTIGEN WITH HIV-1/2 2020-04-06 07:37:00 Aaron Green [facility] - ANTIBODY [facility] PSA 2020-04-06 07:37:[address] [facility] TESTOSTERONE, FREE + TOTAL 2020-04-06 07:37:00 Aaron Green [facility] MUMPS ANTIBODY, IGG 2020-04-06 07:37:[address] [facility] RUBEOLA ANTIBODY IGG 2020-04-06 07:37:[address] [facility] [id number]\\, SERUM 2020-04-06 07:37:[address] [facility] [id number] (AAT) 2020-04-06 07:37:00 Aaron Green [facility] BASIC METABOLIC PANEL (7) 2020-03-09 14:31:00 Jos Skinner [facility] HEPATIC FUNCTION PANEL 2020-03-09 14:31:00 Jos Skinner [facility] PROTHROMBIN TIME/INR 2020-03-09 14:31:00 Skinner, [facility] ALPHA FETOPROTEIN (AFP), 2020-03-09 14:31:00 Jos Skinner [facility] TUMOR MARKER [facility] TACROLIMUS LEVEL 2020-03-09 14:31:00 Susanne [facility] CBC W/PLT COUNT & AUTO 2020-03-09 14:31:00 Susanneformerly [facility] BASIC METABOLIC PANEL (7) 2020-02-29 12:46:[address] [facility] BASIC METABOLIC PANEL (7) 2020-02-26 06:15:00 Alona [place] Hyunn a [facility] TACROLIMUS LEVEL 2020-02-26 06:15:00 Ginny Pb [facility] MAGNESIUM 2020-02-26 06:15:00 Alona, [place] Hyunna [facility] BASIC METABOLIC PANEL (7) 2020-02-25 14:04:00 Dar Dacosta [facility] PULMONARY FUNCTION - SCAN 2020-02-25 13:40:03 Mayi Fragoso [facility] BASIC METABOLIC PANEL (7) 2020-02-25 05:52:00 Alona Maineva Linnunn a [facility] TACROLIMUS LEVEL 2020-02-25 05:52:00 GinnyPb [facility] MAGNESIUM 2020-02-25 05:52:00 Alona, [place] Hyunna [facility] CBC (HEMOGRAM ONLY) 2020-02-25 05:52:00 Alona [place] Hyunna [facility] PTH, INTACT 2020-02-25 05:52:00 Vo, [facility] VITAMIN D, 25-HYDROXY 2020-02-25 05:52:00 Vo, [facility] HEPATIC FUNCTION PANEL 2020-02-25 05:52:00 [facility] US ABDOMINAL WITH DOPPLER 2020-02-24 22:56:00 [facility] BLOOD GAS, VENOUS 2020-02-24 18:13:00 Vo, [facility] SODIUM, RANDOM URINE 2020-02-24 18:02:00 Vo, [facility] POTASSIUM, RANDOM URINE 2020-02-24 18:02:00 Vo, [facility] CHLORIDE, RANDOM URINE 2020-02-24 18:02:00 Vo, [facility] UREA NITROGEN, RANDOM URINE 2020-02-24 18:02:00 Vo, [facility] CREATININE, RANDOM URINE 2020-02-24 18:02:00 Vo, [facility] BASIC METABOLIC PANEL (7) 2020-02-24 12:47:00 Vo, [facility] 2D ECHO W/ DOPPLER 2020-02-24 11:53:11 Alona, [place] Adams [facility] (CW/PW/COLOR) [facility] BASIC METABOLIC PANEL (7) 2020-02-24 06:07:00 Alona, [place] jose [facility] PROTHROMBIN TIME/INR 2020-02-24 06:07:00 Alona, [place] Bryan [facility] TACROLIMUS LEVEL 2020-02-24 06:07:00 Pb Gross [facility] US RENAL COMPLETE 2020-02-24 00:25:00 Alona, [place] Rogersa [facility] URINALYSIS W/ MICROSCOPIC 2020-02-23 20:51:00 Alona, [place] Hyunn a [facility] SODIUM, RANDOM URINE 2020-02-23 20:51:00 Alona, [place] Hybrycea [facility] CREATININE, RANDOM URINE 2020-02-23 20:51:00 Alona, [place] Hybrycea [facility] PROTEIN, RANDOM URINE 2020-02-23 20:51:00 Alona, [place] Kena [facility] BASIC METABOLIC PANEL (7) 2020-02-23 17:53:00 Alona, [place] Linnunn a [facility] B-TYPE NATRIURETIC FACTOR 2020-02-23 17:53:00 Alona, Maineva Rogers a [facility] (BNP) [facility] IRON, TIBC, % SAT. (WITHOUT 2020-02-23 17:53:00 Alona, Maineva Bishop nna [facility] - FERRITIN) [facility] VITAMIN B12 AND FOLATE 2020-02-23 17:53:00 Alona, Maineva Adams C [facility] FERRITIN 2020-02-23 17:53:00 Alona, [place] Rogersa [facility] SARS-COV2/RT-PCR ([facility] & 2020-02-23 12:33:00 Pb Gross h [facility] - REF LABS) [facility] XR CHEST 2 VIEWS 2020-02-23 11:42:00 July Hennessy [facility] SPIROMETRY 2020-02-23 10:54:00 July Hennessy [facility] AB SPECIFICITY CLASS I 2020-02-23 10:27:00 July Hennessy [facility] AB SPECIFICITY CLASS II 2020-02-23 10:27:00 July Hennessy [facility] COMPREHENSIVE METABOLIC 2020-02-23 10:27:00 July Hennessy [facility] FLOW PRA CLASS I WITH 2020-02-23 10:27:00 July Hennessy [facility] - REFLEX TO ANTIBODY [facility] SPECIFICITY FLOW PRA CLASS II WITH 2020-02-23 10:27:00 [facility] SPECIFICITY HEMOGLOBIN A1C 2020-02-23 10:27:00 July Hennessy [facility] MAGNESIUM 2020-02-23 10:27:00 July Hennessy [facility] PHOSPHORUS 2020-02-23 10:27:00 Minoo [facility] AB DONOR SPECIFIC, DSA 2020-02-23 10:27:00 Li, July Erik-Bonds [facility] CBC W/PLT COUNT & AUTO 2020-02-23 10:27:00 July Hennessy [facility] CMV PCR, QUANTITATIVE 2020-02-23 10:26:00 July Hennessy [facility] TACROLIMUS LEVEL 2020-02-23 10:26:00 July HennessyVamshi [facility] PROTHROMBIN TIME/INR 2020-01-27 10:56:[address] [facility] HEPATIC FUNCTION PANEL 2020-01-27 10:56:[address] [facility] BASIC METABOLIC PANEL (7) 2020-01-27 10:56:00 Aaron Green [facility] CBC W/PLT COUNT & AUTO 2020-01-27 10:56:00 Mary AnnAaron riley [facility] REPORT OF PROCEDURE - 2019-12-17 15:00:40 Provider, [facility] SCAN [facility] [facility] RHYTHM STRIP - SCAN 2019-12-14 10:01:05 Provider, [facility] BLOOD CULTURE 2019-12-10 20:28:00 Robin, [facility] LACTIC ACID, VENOUS 2019-12-10 20:27:00 Robin, [facility] SARS-COV2/RT-PCR ([facility] 2019-12-10 20:07:00 Robin, [facility] REF [facility] BLOOD CULTURE 2019-12-10 20:07:00 Robin, [facility] LACTIC ACID, VENOUS 2019-12-10 20:07:00 Robin, [facility] PROTHROMBIN TIME/INR 2019-12-10 20:07:00 Robin, [facility] APTT 2019-12-10 20:07:00 Robin, [facility] BASIC METABOLIC PANEL (7) 2019-12-10 20:07:00 Robin, [facility] HEPATIC FUNCTION PANEL 2019-12-10 20:07:00 Robin, [facility] TROPONIN I 2019-12-10 20:07:00 Robin, [facility] B-TYPE NATRIURETIC FACTOR 2019-12-10 20:07:00 Robin, [facility] (BNP) [facility] CBC W/PLT COUNT & AUTO 2019-12-10 20:07:00 Robin, [facility] XR CHEST 1 VIEW 2019-12-10 19:48:00 Robin, [facility] ED ECG INTERPRETATION 2019-12-10 18:59:05 Robin, [facility] ECG 12-LEAD 2019-12-10 18:48:28 Unknown, Hl7 Doctor [facility] TACROLIMUS LEVEL 2019-11-09 15:39:00 [facility] PROT[facility] TIME/INR 2019-11-09 15:39:[address] [facility] CBC W/PLT COUNT & AUTO 2019-11-09 15:39:00 Mary AnnAaron riley [facility] HEPATIC FUNCTION PANEL 2019-11-09 15:39:[address] [facility] BASIC METABOLIC PANEL (7) 2019-11-09 15:39:00 Aaron Green [facility] TACROLIMUS LEVEL 2019-10-20 08:57:00 Susanne [facility] BASIC METABOLIC PANEL (7) 2019-10-20 08:52:00 Jos Skinner [facility] HEPATIC FUNCTION PANEL 2019-10-20 08:52:00 Susanne [facility] CBC W/PLT COUNT & AUTO 2019-10-20 08:52:00 Susanneformerly [facility] PROTHROMBIN TIME/INR 2019-10-20 [facility]OL[facility] PANEL (7) 2019-10-05 13:43:00 Aaron Green [facility] I [facility] HEPATIC FUNCTION PANEL 2019-10-05 13:43:[address] [facility] PROTHROMBIN TIME/INR 2019-10-05 13:43:[address] [facility] ALPHA FETOPROTEIN (AFP), 2019-10-05 13:43:00 Renaldo Greenan [facility] - TUMOR MARKER [facility] TACROLIMUS LEVEL 2019-10-05 13:43:00 [facility] CMV PCR, QUANTITATIVE 2019-10-05 13:43:00 Cho [facility] CBC W/PLT COUNT & AUTO 2019-10-05 13:43:00 Aaron Green [facility] DIFFERENTIAL [facility] RHYTHM STRIP - SCAN 2019-09-03 08:50:52 Provider, Mayi [facility] IR TIPSS PROCEDURE 2019-08-31 11:30:00 Vincenzo See [facility] TISSUE EXAM 2019-08-31 11:20:[address] [facility] ECG 12-LEAD 2019-08-31 07:44:47 Unknown, Hl7 Doctor [facility] COMPREHENSIVE METABOLIC 2019-08-31 07:31:00 Lynn Chávez [facility] BILIRUBIN, DIRECT 2019-08-31 07:31:00 Lynn Chávez [facility] PROTHROMBIN TIME/INR 2019-08-31 07:31:00 Lynn Chávez [facility] APTT 2019-08-31 07:31:00 Lynn [facility] CBC W/PLT COUNT & AUTO 2019-08-31 07:31:00 Lynn Ch[facility]vez [facility] PROCEDURE DONE OUTSIDE OR 2019-08-31 07:30:00 Virtual, Surgeon C [facility] CARDIAC CATH REPORT - SCAN 2019-08-28 13:40:29 Provider, Default [facility] BASIC METABOLIC PANEL (7) 2019-08-26 05:55:00 Siriafan Skinny Patricia [facility] TACROLIMUS LEVEL 2019-08-26 05:55:00 Lauro Peterson [facility] APTT 2019-08-26 05:55:00 Siriakenyattaluz Skinny Patricia [facility] PROTHROMBIN TIME/INR 2019-08-26 05:55:00 Danaluz Skinny Patricia [facility] CBC W/PLT COUNT & AUTO 2019-08-26 05:55:00 Giovanni Skinny Gomez [facility] US HEPATIC PORTAL VESSEL 2019-08-25 21:15:00 Lauro Peterson [facility] BASIC METABOLIC PANEL (7) 2019-08-25 07:22:00 Skinny Molina [facility] TACROLIMUS LEVEL 2019-08-25 06:42:00 Lauro Peterson [facility] APTT 2019-08-25 06:42:00 SiriakenyattaRustyy [facility] PROTHROMBIN TIME/INR 2019-08-25 06:42:00 Skinny Molina [facility] CBC W/PLT COUNT & AUTO 2019-08-25 06:42:[address] [facility] (CELLAVISION MANUAL DIFF) 2019-08-25 06:42:00 Skinny Molina [facility] R CATH 2019-08-24 13:49:00 Moustapha Fabian [facility] BASIC METABOLIC PANEL (7) 2019-08-24 06:06:00 Skinny Molina [facility] HEPATIC FUNCTION PANEL 2019-08-24 06:06:00 Skinny Molina CH I [facility] GAMMA GLUTAMYL TRANSFERASE 2019-08-24 06:06:00 Aaron [facility] W/[facility]T COUNT & AUTO 2019-08-24 06:06:00 Skinny Molina [facility] (CELLAVISION MANUAL DIFF) 2019-08-24 06:06:00 Skinny Molina [facility] US TESTICULAR WITH DOPPLER 2019-08-23 13:20:00 Mark Ortiz [facility] US ABDOMEN LIMITED 2019-08-23 12:25:00 Angel, Mark Lopez [facility] LIPASE 2019-08-23 10:46:00 Angel, [facility] HEPATIC FUNCTION PANEL 2019-08-23 10:46:00 Angel, [facility] BASIC METABOLIC PANEL (7) 2019-08-23 10:46:00 Angel, Mark Lopez [facility] PROTHROMBIN TIME/INR 2019-08-23 10:46:00 Angel, [facility] Eloisa [facility] APTT 2019-08-23 10:46:00 Angel, Mark Lopez [facility] AMYLASE 2019-08-23 10:46:00 nAgel, Mark Lopez [facility] CBC W/PLT COUNT & AUTO 2019-08-23 10:46:00 Angel, [facility] REPORT OF PROCEDURE - 2019-08-20 12:19:21 Vincenzo See [facility] ENDOSCOPY [facility] UPPER ENDOSCOPY 2019-08-20 11:51:00 Vincenzo See [facility] BASIC METABOLIC PANEL (7) 2019-08-19 12:45:00 July Hennessy [facility] TACROLIMUS LEVEL 2019-08-19 12:45:00 July Hennessy [facility] CBC W/PLT COUNT & AUTO 2019-08-19 12:45:00 July Hennessy [facility] US PARACENTESIS 2019-08-19 11:22:00 Vincenzo See [facility] BODY FLUID CELL COUNT WITH 2019-08-19 11:12:00 Erik Pina [facility] POCT-CREATININE 2019-08-19 11:07:00 VijayVincenzo womack [facility] US PARACENTESIS 2019-08-12 17:30:00 VijayVincenzo womack [facility] BODY FLUID CELL COUNT WITH 2019-08-12 17:27:00 VijayVincenzo womack [facility] POCT-CREATININE 2019-08-12 16:02:00 VijayVincenzo womack [facility] US PARACENTESIS 2019-08-05 11:11:00 VijayVincenzo womack [facility] BODY FLUID CELL COUNT WITH 2019-08-05 10:41:00 VijayVincenzo womack [facility] POCT-CREATININE 2019-08-05 09:52:00 VijayVincenzo womack [facility] BODY FLUID CELL COUNT WITH 2019-08-01 21:35:00 Hernan Stock [facility] HEPATIC FUNCTION PANEL 2019-08-01 16:37:00 Hernan Stock [facility] PT/APTT 2019-08-01 16:37:00 Hernan Stock [facility] BASIC METABOLIC PANEL (7) 2019-08-01 16:37:00 Hernan Stock [facility] CBC W/PLT COUNT & AUTO 2019-08-01 16:37:[address] [facility] ABDOMINAL 2019-08-01 15:57:23 Hernan Stock [facility]ENTESIS[facility] RHYTHM STRIP - SCAN 2019-07-31 13:40:15 Provider, Default [facility] RHYTHM STRIP - SCAN 2019-07-31 11:10:39 Provider, Default [facility] BASIC METABOLIC PANEL (7) 2019-07-30 07:07:00 Huber Mcadams [facility] MAGNESIUM 2019-07-30 07:07:00 Huber Mcadams [facility] PHOSPHORUS 2019-07-30 07:07:00 Esme [facility] HEPATIC FUNCTION PANEL 2019-07-30 07:07:00 Huber Mcadams [facility] TACROLIMUS LEVEL 2019-07-30 07:07:00 [facility] CBC W/PLT COUNT & AUTO 2019-07-30 07:07:00 [facility] BASIC METABOLIC PANEL (7) 2019-07-29 06:43:00 Huber Mcadams [facility] MAGNESIUM 2019-07-29 06:43:00 Esme [facility] PHOSPHORUS 2019-07-29 06:43:00 Esme [facility] HEPATIC FUNCTION PANEL 2019-07-29 06:43:00 Esme Huber [facility] TACROLIMUS LEVEL 2019-07-29 06:43:00 [facility] W/[facility]T COUNT & AUTO 2019-07-29 06:43:00 Esme [facility] TRANSFUSION SERVICE REPORT 2019-07-28 18:26:28 Mayi Fragoso [facility] - - SCAN Scanning [facility] REPORT OF PROCEDURE - 2019-07-28 15:39:22 Familia Day [facility] - ENDOSCOPY URL [facility] UPPER ENDOSCOPY 2019-07-28 12:29:00 Familia Day [facility] XR CHEST 1 VIEW 2019-07-28 09:12:00 July Hennessy-Vamshi [facility] - [facility]ABLE[facility] BASIC METABOLIC PANEL (7) 2019-07-28 04:52:00 Huber Mcadams [facility] MAGNESIUM 2019-07-28 04:52:00 Esme [facility] PHOSPHORUS 2019-07-28 04:52:00 Esme [facility] HEPATIC FUNCTION PANEL 2019-07-28 04:52:00 Huber Mcadams [facility] TACROLIMUS LEVEL 2019-07-28 04:52:00 Bernabe Duggan [facility] CMV PCR, QUANTITATIVE 2019-07-28 04:52:00 July Hennessy [facility] CBC W/PLT COUNT & AUTO 2019-07-28 04:52:00 Huber Mcadams [facility] (CELLAVISION MANUAL DIFF) 2019-07-28 04:52:00 Huber Mcadams [facility] US PARACENTESIS 2019-07-27 18:20:00 Mark Ortiz [facility] BODY FLUID CELL COUNT WITH 2019-07-27 18:00:00 Mark Ortiz [facility] BODY FLUID CULTURE + GRAM 2019-07-27 18:00:00 Mark Ortiz [facility] POCT OCCULT BLOOD 2019-07-27 13:51:00 Mark Ortiz [facility] - STOOL(GUIAC) [facility] BLOOD CULTURE 2019-07-27 12:25:00 Anna Herrera [facility] BASIC METABOLIC PANEL (7) 2019-07-27 12:25:00 Anna Herrera se [facility] PHOSPHORUS 2019-07-27 12:25:00 Anna Herrera [facility] MAGNESIUM 2019-07-27 12:25:00 Anna Herrera [facility] B-TYPE NATRIURETIC FACTOR 2019-07-27 12:25:00 Anna Herrera se [facility] (BNP) [facility] LIPASE 2019-07-27 12:25:00 Anna Herrera [facility] LACTIC ACID, VENOUS 2019-07-27 12:25:00 Anna Herrera [facility] HEPATIC FUNCTION PANEL 2019-07-27 12:25:00 Anna Herrera [facility] BLOOD GAS, VENOUS 2019-07-27 12:25:00 Anna Herrera [facility] AMYLASE 2019-07-27 12:25:00 Mark Ortiz [facility] TYPE AND SCREEN, AUTOMATED 2019-07-27 12:25:00 Anna Herrera [facility] CBC W/PLT COUNT & AUTO 2019-07-27 12:25:00 Anna Herrera [facility] BLOOD CULTURE 2019-07-27 12:10:00 Anna Herrera Kati [facility] PT/APTT 2019-07-27 12:10:00 Anna Herrera Kati [facility] POCT-CREATININE 2019-07-10 15:34:00 Vincenzo See [facility] US PARACENTESIS 2019-07-10 15:19:00 Vincenzo eSe [facility] TRANSFUSION SERVICE REPORT 2019-07-09 18:01:22 Provider, [facility] PREPARE LEUKO-REDUCED RBC 2019-07-08 23:54:00 July Hennessy [facility] TRANSFUSION SERVICE REPORT 2019-07-08 18:14:03 Provider, [facility] BASIC METABOLIC PANEL (7) 2019-07-08 05:54:00 Rozina Chou CH, I [facility] MAGNESIUM 2019-07-08 05:54:00 Rozina Chou [facility] TACROLIMUS LEVEL 2019-07-08 05:54:00 Rozina Chou [facility] CBC W/PLT COUNT & AUTO 2019-07-08 05:54:00 [facility] TRANSFUSE LEUKO-REDUCED RED 2019-07-07 16:57:30 July Hennessy [facility] BLOOD [facility] US PARACENTESIS 2019-07-07 11:39:00 July Hennessy [facility] GLUCOSE PERITONEAL FLUID 2019-07-07 11:28:00 July Hennessy g [facility] BODY FLUID CELL COUNT WITH 2019-07-07 11:27:00 July Hennessy [facility] BODY FLUID CULTURE + GRAM 2019-07-07 11:27:00 July Hennessy [facility] PROTEIN, BODY FLUID 2019-07-07 11:26:00 July Hennessy [facility] LACTATE DEHYDROGENASE (LD), 2019-07-07 11:26:00 July Hennessy [facility] PERITONEAL [facility] ABORH, MANUAL 2019-07-07 07:55:00 July Hennessy [facility] HEPATIC FUNCTION PANEL 2019-07-07 05:45:00 Campbell, [facility] PHOSPHORUS 2019-07-07 05:45:[facility] BASIC METABOLIC PANEL (7) 2019-07-07 05:45:00 Rozina Chou [facility] MAGNESIUM 2019-07-07 05:45:00 Effie Kell [facility] TACROLIMUS LEVEL 2019-07-07 05:45:00 Effie [facility] CBC W/PLT COUNT & AUTO 2019-07-07 05:45:00 Effie [facility] BLOOD CULTURE 2019-07-06 13:02:00 Bernabe Duggan [facility] RESPIRATORY PANEL [facility] 2019-07-06 12:34:00 Jose Jain [facility] BLOOD CULTURE 2019-07-06 12:15:00 Bernabe Duggan [facility] BASIC METABOLIC PANEL (7) 2019-07-06 06:14:00 Campbell, [facility] HEPATIC FUNCTION PANEL 2019-07-06 06:14:00 Campbell [facility] MAGNESIUM 2019-07-06 06:14:00 Campbell, [facility] PHOSPHORUS 2019-07-06 06:14:00 Adrian [facility] CBC W/PLT COUNT & AUTO 2019-07-06 06:14:00 Adrian [facility] XR CHEST 2 VIEWS 2019-07-06 02:11:00 [facility] BASIC MET[facility]OLIC PANEL (7) 2019-07-06 01:39:00 Adrian [facility] HEPATIC FUNCTION PANEL 2019-07-06 01:39:00 [facility] 2019-07-06 01:39:00 [facility] PROTHROMBIN TIME/INR 2019-07-06 01:39:00 [facility] MAGNESIUM 2019-07-06 01:39:00 [facility] PHOSPHORUS 2019-07-06 01:39:00 [facility]EL 2019-07-06 01:39:00 [facility] CBC W/PLT COUNT & AUTO 2019-07-06 01:39:00 [facility] COMPREHENSIVE METABOLIC 2019-07-03 10:57:00 Lokesh Vega p [facility] MAGNESIUM 2019-07-03 10:57:00 Lokesh Vega [facility] PHOSPHORUS 2019-07-03 10:57:00 Lokesh Vega [facility] LACTATE DEHYDROGENASE (LDH) 2019-07-03 10:57:00 Lokesh Vega [facility] TACROLIMUS LEVEL 2019-07-03 10:57:00 July Hennessy [facility] CBC W/PLT COUNT & AUTO 2019-07-03 10:57:00 July Hennessy [facility] US PARACENTESIS 2019-06-27 11:52:00 Denilson Diaz [facility] BASIC METABOLIC PANEL (7) 2019-06-27 10:21:00 Denilson Diaz [facility] PROTHROMBIN TIME/INR 2019-06-27 10:21:00 Denilson Diaz [facility] CBC W/PLT COUNT & AUTO 2019-06-27 10:21:00 Joe Denilson Hui HI [facility] Plan of Care Planned Activity Planned Date Details Comments Source Future Scheduled Test 2025-04-06 Lipid panel [facility] - 00:00:00 (procedure) [code = [facility] 44564935] Future Scheduled Test 2020-03-01 INFLUENZA VACCINE (#1) [facility] - 00:00:00 [code = INFLUENZA Medical Ce nter VACCINE (#1)] Future Scheduled Test 2019-07-01 DEPRESSION SCREENING [facility] - 00:00:00 (12+) [code = [facility] DEPRESSION SCREENING (12+)] Future Scheduled Test 2018-07-24 PNEUMOCOCCAL VACCINE [facility] - 00:00:00 0-64 YRS (3 of 3 - Medical C enter PPSV23) [code = PNEUMOCOCCAL VACCINE 0-64 YRS (3 of 3 - PPSV23)] Future Scheduled Test 1955 Screening for [facility] S t [facility] - 00:00:00 malignant neoplasm of [facility] colon (procedure) [code = 870242009] Future Appointment 2020-06-10 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; [facility] [address], [place] [address] Encounters Start End Encounter Admission Attending Care Care Encounter Source Date/Time Date/Time Type Type Clinicians Facility Department ID 2020-06-06 2020-06-06 Office Roman Myers [id number] 09:14:41 10:09:35 Visit Nestor AMBULATOR [id number] Preston Y [id number] 2019-02-04 2019-02-04 Office MAGI Serrano [id number] 13:15:13 13:45:13 Visit Reg AMBULATOR [id number] Shultz Y [id number] Results Test Description Test Time Test Comments Results Result Comments Source EBV-VCA antibody, IgG 2020-05-14 12:08:00 Test Item Value Reference Range Interpretation Comme nts EBV Ab VCA, IgG (test code = 21.5 U/mL 0-17.9 H A second sample should ) be collected an d tested no less than 2- 4 weeks. Negativ e <18.0 E quivocal 18.0 - 21.9 Positive >21.9 LATRELL (test code = LATRELL) Performed at: [facility] [id number] Director: Ortega Santiago MD, Phone: [phone] Lab Interpretation (test code Abnormal = 44185-1) [facility] [id number] 11:48:00 Test Item Value Reference Range Interpretation Comments SCAN RESULT (test code = 4572687) [id number] 11:48:00Scan ResultQUEST NON-INTERFACED LABGlendale Adventist Medical CenterCARDIAC CATH REPORT - [id number] 10:09:47Ordered by an unspecified provider.[facility] CenterToxicology screen, serum 2020-05-04 13:48:00 Test Item Value Reference Interpretation Comments Range DRUG TEST, see note The following c ompounds were GENERAL detected: Ac etaminophen TOXICOLOGY, Hydromorphone Gabapentin URINE,QUEST (test Caffein e Hydrocodone code = 3052) THC-COOH For a list of compounds and l imits of detection go to:http://educa tion.Codota.YupiCall/fa q/FKJ596 This test was claire guzman and its analytical performancechar acteristics have been deter mined by [email or web address] s [place], [place]. It hasnot been lyly ared or approved by the U.S. Food and DrugAdminis tration. This assay has been validated pursuantto the CLIA regulations and is used for clinicalpurpose s. ACETONE (QUEST) 14 mg/dL H (test code = 0619749) METHANOL(QUEST) None Detected (test code = 2439396) Isopropanol(Quest None Detected ) (test code = 3055) ETHANOL (test None Detected Volatile code = 2968) Limit of Detect ion: 5 mg/dL LATRELL (test code = Performing Lab LATRELL) [address] [facility] [address] [place] [address] Rabia Sin MD, PhD Lab Abnormal Interpretation (test code = 19634-8) [facility] PRA CLASS I WITH REFLEX TO ANTIBODY [id number] 13:37:00 Test Item Value Reference Range Interpretation Comments Flow Class I Percent Positive (test 0 code = 3229) [facility] PRA CLASS II WITH REFLEX TO ANTIBODY [id number] 13:37:00 Test Item Value Reference Range Interpretation Comments Flow Class II Percent Positive (test 0 code = 3231) [facility] CenterTacrolimus [id number] 12:17:00 Test Item Value Reference Range Interpretation Comments Tacrolimus Lvl (test code 7.5 ng/mL 10-20 L = 33313-5) LATRELL (test code = LATRELL) [employer] ID [place] IBANEZ F Lab Interpretation (test Abnormal code = 65298-4) [facility] CenterTACROLIMUS [id number] 12:17:00 Test Item Value Reference Range Interpretation Comments TACROLIMUS BLOOD (BEAKER) (test 7.5 ng/mL 10.0-20.0 L code = 657) [employer] ID [place] IBANEZ FPOC-Glucose [id number] 08:31:00 Test Item Value Reference Range Interpretation Comments POC-Glucose Meter (test 119 mg/dL 70-110 H : TE STED AT [facility] code = 1538) [address] [facility], 770 30: Leather Belt Shaper/Techni demetrice ID = [id number] for [place]abor[place]air[place] Lab Interpretation (test Abnormal code = 67770-9) [facility] CenterPOCT-GLUCOSE [id number] 08:31:00 Test Item Value Reference Range Interpretation Comments POC-GLUCOSE METER 119 mg/dL 70-110 H : TESTED A T [facility] 6720 (BEAKER) (test code = PARESH Garcia [facility], 1538) [address]: Leather Belt Shaper/Techni demetrice ID = [id number] for Be noit, Kyaira Basic Metabolic [id number] 06:20:00 Test Item Value Reference Range Interpretation Comments Sodium (test code = 140 meq/L 445-782 9166-2) Potassium (test code = 4.1 meq/L 3.5-5.1 2823-3) Chloride (test code = 109 meq/L 98-107 H 2075-0) CO2 (test code = 17 meq/L 22-29 L 2028-9) BUN (test code = 68 mg/dL 7-21 H 3094-0) Creatinine (test code 4.47 mg/dL 0.57-1.25 H = 2160-0) Glucose (test code = 120 mg/dL 70-105 H 2345-7) Calcium (test code = 7.7 mg/dL 8.4-10.2 L 49626-7) EGFR (test code = 13 mL/min/1.73 [place] [address]-2) NOT ACCURATE CREATININE CLEARANCE IN PREDICTING GLOMERULAR FILTRATION RATE . ESTIMATED GFR I S NOT APPLICABLE FOR DIALYSIS PATIENTS. LATRELL (test code = LATRELL) Leather Belt Shaper ID - EDASI Lab Interpretation Abnormal (test code = 83117-2) [facility] METABOLIC [id number] 06:20:00 Test Item Value Reference Range Interpretation Comments SODIUM (BEAKER) 140 meq/L 136-145 (test code = 381) POTASSIUM (BEAKER) 4.1 meq/L 3.5-5.1 (test code = 379) CHLORIDE (BEAKER) 109 meq/L 98-107 H (test code = 382) CO2 (BEAKER) (test 17 meq/L 22-29 L code = 355) BLOOD UREA NITROGEN 68 mg/dL 7-21 H (BEAKER) (test code = 354) CREATININE (BEAKER) 4.47 mg/dL 0.57-1.25 H (test code = 358) GLUCOSE RANDOM 120 mg/dL 70-105 H (BEAKER) (test code = 652) CALCIUM (BEAKER) 7.7 mg/dL 8.4-10.2 L (test code = 697) EGFR (BEAKER) (test 13 mL/min/1.73 ESTIMA ROBERTA GFR IS code = 1092) sq m NOT ACCURATE CREATININE CLEARANCE IN PREDICTING GLOMERULAR FILTRATION RATE . ESTIMATED GFR I S NOT APPLICABLE FOR DIALYSIS PATIEN TS. Leather Belt Shaper ID - EDASIHepatic function [id number] 06:18:00 Test Item Value Reference Range Interpretation Comments Protein, Total (test code 3.5 6.0- 8.3 gm/dL L = 2885-2) Albumin (test code = 2.6 g/dL 3.5-5 L 87981-0) Total Bilirubin (test code 1.2 mg/dL 0.2-1.2 = 1975-2) Bilirubin, Direct (test 0.9 mg/dL 0.1-0.5 H code = 1968-7) Alkaline Phosphatase (test 129 U/L 40-150 code = 6768-6) AST (test code = 1920-8) 22 U/L 5-34 ALT (test code = 1742-6) 15 U/L 6-55 LATRELL (test code = LATRELL) Leather Belt Shaper ID - EDASI Lab Interpretation (test Abnormal code = 59943-1) [facility] [facility]00 Test Item Value Reference Range Interpretation Comments Magnesium (test code = 1.8 mg/dL 1.6-2.6 03756-9) LATRELL (test code = LATRELL) Leather Belt Shaper ID - EDASI Lab Interpretation (test Normal code = 96642-3) [facility] 06:18:00 Test Item Value Reference Range Interpretation Comments Phosphorus (test code = 4.2 mg/dL 2.3-4.7 2777-1) LATRELL (test code = LATRELL) Leather Belt Shaper ID - EDASI Lab Interpretation (test Normal code = 82879-2) [facility]UM2020-[facility]-01 06:18:00 Test Item Value Reference Range Interpretation Comments MAGNESIUM (BEAKER) (test code = 1.8 mg/dL 1.6-2.6 627) Leather Belt Shaper ID - [id number] 06:18:00 Test Item Value Reference Range Interpretation Comments PHOSPHORUS (BEAKER) (test code = 4.2 mg/dL 2.3-4.7 604) Leather Belt Shaper ID - EDASIHEPATIC FUNCTION [id number] 06:18:00 Test Item Value Reference Range Interpretation Comments TOTAL PROTEIN (BEAKER) (test code = 3.5 gm/dL 6.0-8.3 L 770) ALBUMIN (BEAKER) (test code = 1145) 2.6 g/dL 3.5-5.0 L BILIRUBIN TOTAL (BEAKER) (test code 1.2 mg/dL 0.2-1.2 = 377) BILIRUBIN DIRECT (BEAKER) (test 0.9 mg/dL 0.1-0.5 H code = 706) ALKALINE PHOSPHATASE (BEAKER) (test 129 U/L 40-150 code = 346) AST (SGOT) (BEAKER) (test code = 22 U/L 5-34 353) ALT (SGPT) (BEAKER) (test code = 15 U/L 6-55 347) Leather Belt Shaper ID - EDASICBC with platelet count + automated [id number] 06:07:00 Test Item Value Reference Range Interpretation Comments WBC (test code = 6690-2) 4.1 3.5- 10.5 K/L RBC (test code = 789-8) 2.18 4.63- 6.08 M/L L MCHC (test code = 786-4) 32.6 32.3- 36.5 GM/DL L Hematocrit (test code = 4544-3) 21.5 % 40.1-51 L MCV (test code = 787-2) 98.6 fL 79-92.2 H MCH (test code = 785-6) 32.1 pg 25.7-32.2 RDW (test code = 788-0) 20.5 % 11.6-14.4 H Platelets (test code = 777-3) 41 150- 450 K/CU MM L MPV (test code = 94864-2) 10.5 fL 9.4-12.4 nRBC (test code = 413) 0 0- 0 /100 WBC % Neutros (test code = 429) 81 % % Lymphs (test code = 430) 11 % % Monos (test code = 431) 5 % % Eos (test code = 432) 1 % % Baso (test code = 437) 0 % # Neutros (test code = 670) 3.31 1.78- 5.38 K/L # Lymphs (test code = 414) 0.46 1.32- 3.57 K/L L # Monos (test code = 415) 0.22 0.30- 0.82 K/L L # Eos (test code = 416) 0.02 0.04- 0.54 K/L L # Baso (test code = 417) 0.01 0.01- 0.08 K/L Immature Granulocytes-Relative 2 % 0-1 H (test code = 2801) Lab Interpretation (test code = Abnormal 77320-4) [facility] W/PLT COUNT & AUTO [id number] 06:07:00 Test Item Value Reference Range Interpretation Comments WHITE BLOOD CELL COUNT (BEAKER) 4.1 K/ L 3.5-10.5 (test code = 775) RED BLOOD CELL COUNT (BEAKER) 2.18 M/ L 4.63-6.08 L (test code = 761) HEMOGLOBIN (BEAKER) (test code = 7.0 GM/DL 13.7-17.5 L 410) HEMATOCRIT (BEAKER) (test code = 21.5 % 40.1-51.0 L 411) MEAN CORPUSCULAR VOLUME (BEAKER) 98.6 fL 79.0-92.2 H (test code = 753) MEAN CORPUSCULAR HEMOGLOBIN 32.1 pg 25.7-32.2 (BEAKER) (test code = 751) MEAN CORPUSCULAR HEMOGLOBIN CONC 32.6 GM/DL 32.3-36.5 (BEAKER) (test code = 752) RED CELL DISTRIBUTION WIDTH 20.5 % 11.6-14.4 H (BEAKER) (test code = 412) PLATELET COUNT (BEAKER) (test code 41 K/CU MM 150-450 L = 756) MEAN PLATELET VOLUME (BEAKER) 10.5 fL 9.4-12.4 (test code = 754) NUCLEATED RED BLOOD CELLS (BEAKER) 0 /100 WBC 0-0 (test code = 413) NEUTROPHILS RELATIVE PERCENT 81 % (BEAKER) (test code = 429) LYMPHOCYTES RELATIVE PERCENT 11 % (BEAKER) (test code = 430) MONOCYTES RELATIVE PERCENT 5 % (BEAKER) (test code = 431) EOSINOPHILS RELATIVE PERCENT 1 % (BEAKER) (test code = 432) BASOPHILS RELATIVE PERCENT 0 % (BEAKER) (test code = 437) NEUTROPHILS ABSOLUTE COUNT 3.31 K/ L 1.78-5.38 (BEAKER) (test code = 670) LYMPHOCYTES ABSOLUTE COUNT 0.46 K/ L 1.32-3.57 L (BEAKER) (test code = 414) MONOCYTES ABSOLUTE COUNT (BEAKER) 0.22 K/ L 0.30-0.82 L (test code = 415) EOSINOPHILS ABSOLUTE COUNT 0.02 K/ L 0.04-0.54 L (BEAKER) (test code = 416) BASOPHILS ABSOLUTE COUNT (BEAKER) 0.01 K/ L 0.01-0.08 (test code = 417) IMMATURE GRANULOCYTES-RELATIVE 2 % 0-1 H PERCENT (BEAKER) (test code = 2801) Prothrombin time/[id number] 06:04:00 Test Item Value Reference Range Interpretation Comments Protime (test code = 22.9 11.9- 14.2 H 5902-2) seconds INR (test code = 2.08 <=5.90 6301-6) LATRELL (test code = LATRELL) Effective 11/26/2018: PT Reference Range ChangeNew: 11.9-14.2 Previous: 11.7-14.7 RECOMMENDED COUMADIN/WARFARIN INR THERAPY RANGESSTANDARD DOSE: 2.0-3.0 Includes: PROPHYLAXIS for venous thrombosis, systemic embolization; TREATMENT for venous thrombosis and/or pulmonary embolus.HIGH RISK: Target INR is 2.5-3.5 for patients wiht mechanical heart valves. Lab Interpretation Abnormal (test code = 10188-5) [facility] CenterPROTHROMBIN TIME/[id number] 06:04:00 Test Item Value Reference Range Interpretation Comments PROTIME (BEAKER) (test code = 22.9 seconds 11.9-14.2 H 759) INR (BEAKER) (test code = 370) 2.08 <=5.90 Effective 11/26/2018: PT Reference Range ChangeNew: 11.9-14.2 Previous: 11.7- 14.7RECOMMENDED COUMADIN/WARFARIN INR THERAPY RANGESSTANDARD DOSE: 2.0-3.0 Includes: PROPHYLAXIS for venous thrombosis, systemic embolization; TREATMENT for venous thrombosis and/or pulmonary embolus.HIGH RISK: Target INR is2.5-3.5 for patients wiht mechanical heart valves.B-type Natriuretic Factor (BNP) 2020-05-01 06:00:00 Test Item Value Reference Range Interpretation Comments BNP (test code = 88262-3) 996 pg/mL 0-100 H LATRELL (test code = LATRELL) Leather Belt Shaper ID - DB Lab Interpretation (test Abnormal code = 43105-6) [facility] Center[facility] NATRIURET[facility] FACTOR (BNP)2020-05-01 06:00:00 Test Item Value Reference Range Interpretation Comments B-TYPE NATRIURETIC PEPTIDE (BEAKER) 996 pg/mL 0-100 H (test code = 700) Leather Belt Shaper ID - DBPOCT-GLUCOSE [id number] 13:59:00 Test Item Value Reference Range Interpretation Comments POC-GLUCOSE METER 123 mg/dL 70-110 H : TESTED A T [facility] 6720 (BEAKER) (test code = [facility] Jose [facility], 1538) [address]: Leather Belt Shaper/Techni demetrice ID = [id number] for LEE JUAN M BEL POCT-GLUCOSE [id number] 13:54:00 Test Item Value Reference Range Interpretation Comments POC-GLUCOSE METER 78 mg/dL 70-110 : TESTED A T [facility] 6720 (BEAKER) (test code = [facility], 1538) [address]: Leather Belt Shaper/Techni demetrice ID = [id number] for HARDY ROMANYOR, KASSY TACROLIMUS [id number] 10:49:00 Test Item Value Reference Range Interpretation Comments TACROLIMUS BLOOD (BEAKER) (test 10.9 ng/mL 10.0-20.0 code = 657) Leather Belt Shaper ID - JUNO WCBC W/PLT COUNT & AUTO [id number] 06:48:00 Test Item Value Reference Range Interpretation Comments WHITE BLOOD CELL COUNT (BEAKER) 8.4 K/ L 3.5-10.5 (test code = 775) RED BLOOD CELL COUNT (BEAKER) 2.24 M/ L 4.63-6.08 L (test code = 761) HEMOGLOBIN (BEAKER) (test code = 7.1 GM/DL 13.7-17.5 L 410) HEMATOCRIT (BEAKER) (test code = 21.6 % 40.1-51.0 L 411) MEAN CORPUSCULAR VOLUME (BEAKER) 96.4 fL 79.0-92.2 H (test code = 753) MEAN CORPUSCULAR HEMOGLOBIN 31.7 pg 25.7-32.2 (BEAKER) (test code = 751) MEAN CORPUSCULAR HEMOGLOBIN CONC 32.9 GM/DL 32.3-36.5 (BEAKER) (test code = 752) RED CELL DISTRIBUTION WIDTH 19.9 % 11.6-14.4 H (BEAKER) (test code = 412) PLATELET COUNT (BEAKER) (test code 50 K/CU MM 150-450 L = 756) MEAN PLATELET VOLUME (BEAKER) 12.5 fL 9.4-12.4 H (test code = 754) NUCLEATED RED BLOOD CELLS (BEAKER) 0 /100 WBC 0-0 (test code = 413) NEUTROPHILS RELATIVE PERCENT 87 % (BEAKER) (test code = 429) LYMPHOCYTES RELATIVE PERCENT 8 % (BEAKER) (test code = 430) MONOCYTES RELATIVE PERCENT 3 % (BEAKER) (test code = 431) EOSINOPHILS RELATIVE PERCENT 1 % (BEAKER) (test code = 432) BASOPHILS RELATIVE PERCENT 0 % (BEAKER) (test code = 437) NEUTROPHILS ABSOLUTE COUNT 7.30 K/ L 1.78-5.38 H (BEAKER) (test code = 670) LYMPHOCYTES ABSOLUTE COUNT 0.68 K/ L 1.32-3.57 L (BEAKER) (test code = 414) MONOCYTES ABSOLUTE COUNT (BEAKER) 0.28 K/ L 0.30-0.82 L (test code = 415) EOSINOPHILS ABSOLUTE COUNT 0.05 K/ L 0.04-0.54 (BEAKER) (test code = 416) BASOPHILS ABSOLUTE COUNT (BEAKER) 0.02 K/ L 0.01-0.08 (test code = 417) IMMATURE GRANULOCYTES-RELATIVE 1 % 0-1 PERCENT (BEAKER) (test code = 2801) BASIC METABOLIC [id number] 06:35:00 Test Item Value Reference Range Interpretation Comments SODIUM (BEAKER) 139 meq/L 136-145 (test code = 381) POTASSIUM (BEAKER) 4.7 meq/L 3.5-5.1 Specimen slightly (test code = 379) hemolyzed CHLORIDE (BEAKER) 109 meq/L 98-107 H (test code = 382) CO2 (BEAKER) (test 16 meq/L 22-29 L code = 355) BLOOD UREA NITROGEN 73 mg/dL 7-21 H (BEAKER) (test code = 354) CREATININE (BEAKER) 4.62 mg/dL 0.57-1.25 H Specimen slightly (test code = 358) hemolyzed GLUCOSE RANDOM 85 mg/dL 70-105 (BEAKER) (test code = 652) CALCIUM (BEAKER) 7.6 mg/dL 8.4-10.2 L (test code = 697) EGFR (BEAKER) (test 13 mL/min/1.73 ESTIMA ROBERTA GFR IS code = 1092) sq m NOT ACCURATE CREATININE CLEARANCE IN PREDICTING GLOMERULAR FILTRATION RATE . ESTIMATED GFR I S NOT APPLICABLE FOR DIALYSIS PATIEN TS. Leather Belt Shaper ID - CASEY [id number] 06:25:00 Test Item Value Reference Range Interpretation Comments MAGNESIUM (BEAKER) 1.8 mg/dL 1.6-2.6 Specimen slightly (test code = 627) hemolyzed Leather Belt Shaper ID - CASEY [id number] 06:25:00 Test Item Value Reference Range Interpretation Comments PHOSPHORUS (BEAKER) 4.5 mg/dL 2.3-4.7 Specimen slightly (test code = 604) hemolyzed Leather Belt Shaper ID - CASEY MHEPATIC FUNCTION [id number] 06:25:00 Test Item Value Reference Range Interpretation Comments TOTAL PROTEIN (BEAKER) 3.7 gm/dL 6.0-8.3 L Speci men slightly (test code = 770) hemolyzed ALBUMIN (BEAKER) (test 2.6 g/dL 3.5-5.0 L Speci men slightly code = 1145) hemolyzed BILIRUBIN TOTAL 1.2 mg/dL 0.2-1.2 Specimen sli ghtly (BEAKER) (test code = hemoly zed 377) BILIRUBIN DIRECT 0.7 mg/dL 0.1-0.5 H Specimen sl ightly (BEAKER) (test code = hemoly zed 706) ALKALINE PHOSPHATASE 131 U/L 40-150 (BEAKER) (test code = 346) AST (SGOT) (BEAKER) 28 U/L 5-34 Specimen slightly (test code = 353) hemolyzed ALT (SGPT) (BEAKER) 12 U/L 6-55 Specimen slightly (test code = 347) hemolyzed Leather Belt Shaper ID - CASEY MB-TYPE NATRIURETIC FACTOR (BNP)2020-04-30 06:20:00 Test Item Value Reference Range Interpretation Comments B-TYPE NATRIURETIC PEPTIDE (BEAKER) 890 pg/mL 0-100 H (test code = 700) Leather Belt Shaper ID - EDASIPROTHROMBIN TIME/[id number] 06:11:00 Test Item Value Reference Range Interpretation Comments PROTIME (KATELYNN) (test code = 26.2 seconds 11.9-14.2 H 759) INR (KATELYNN) (test code = 370) 2.48 <=5.90 Effective 11/26/2018: PT Reference Range ChangeNew: 11.9-14.2 Previous: 11.7- 14.7RECOMMENDED COUMADIN/WARFARIN INR THERAPY RANGESSTANDARD DOSE: 2.0-3.0 Includes: PROPHYLAXIS for venous thrombosis, systemic embolization; TREATMENT for venous thrombosis and/or pulmonary embolus.HIGH RISK: Target INR is2.5-3.5 for patients wiht mechanical heart valves.HLA TYPING [id number] 23:22:00 Test Item Value Reference Range Interpretation Comments HLA-DR AG1 (test code = 3465) 4 HLA-DR AG2 (test code = 3472) 13 HLA-DR AG3-2 (test code = 3239) 52 HLA-DR AG4-1 (test code = 3240) 53 HLA-DQA1 AG 1-1 (test code = 3463) 3 HLA-DQA1 AG 1-2 (test code = 3464) 5 HLA-DQB1 AG 1-1 (test code = 3244) 7 HLA-DQB1 AG 1-2 (test code = 3245) 7 HLA-DPA1 AG 1-1 (test code = 3246) 1 HLA-DPA1 AG 1-2 (test code = 3247) 1 HLA-DPB1 AG 1-1 (test code = 3248) 04:01 HLA-DPB1 AG 1-2 (test code = 3249) 04:01 [facility] Center[facility] [id number] 23:17:00 Test Item Value Reference Range Interpretation Comments HLA-A AG1 (test code = 3466) 2 HLA-A AG2 (test code = 3467) 2 HLA-B AG1 (test code = 3468) 38 HLA-B AG2 (test code = 3469) 44 HLA-C AG1 (test code = 3470) 12 HLA-C AG2 (test code = 3471) 5 HLA-B BW1 (test code = 3234) 4 HLA-B BW2 (test code = 3235) 4 [facility] # 21:00:00 Test Item Value Reference Range Interpretation Comments Result (test code = No growth in 5 days 6463-4) [facility] CenterBLOOD [id number] 21:00:00 Test Item Value Reference Range Interpretation Comments CULTURE (BEAKER) (test No growth in 5 days code = 1095) BLOOD [id number] 21:00:00 Test Item Value Reference Range Interpretation Comments CULTURE (BEAKER) (test No growth in 5 days code = 1095) POCT-GLUCOSE [id number] 12:11:00 Test Item Value Reference Range Interpretation Comments POC-GLUCOSE METER 84 mg/dL 70-110 : TESTED A T [facility] 6720 (BEAKER) (test code = [facility], 1538) [address]: Leather Belt Shaper/Techni demetrice ID = [id number] for Yosi it Adams TACROLIMUS [id number] 08:57:00 Test Item Value Reference Range Interpretation Comments TACROLIMUS BLOOD (BEAKER) (test 7.8 ng/mL 10.0-20.0 L code = 657) Leather Belt Shaper ID - JUNO WPOCT-GLUCOSE [id number] 08:34:00 Test Item Value Reference Range Interpretation Comments POC-GLUCOSE METER 81 mg/dL 70-110 : TESTED A T [facility] 6720 (BEAKER) (test code = [facility], 1538) [address]: Leather Belt Shaper/Techni demetrice ID = [id number] for Yosi it, Kyaira BASIC METABOLIC [id number] 07:02:00 Test Item Value Reference Range Interpretation Comments SODIUM (BEAKER) 142 meq/L 136-145 (test code = 381) POTASSIUM (BEAKER) 4.3 meq/L 3.5-5.1 (test code = 379) CHLORIDE (BEAKER) 112 meq/L 98-107 H (test code = 382) CO2 (BEAKER) (test 16 meq/L 22-29 L code = 355) BLOOD UREA NITROGEN 77 mg/dL 7-21 H (BEAKER) (test code = 354) CREATININE (BEAKER) 4.76 mg/dL 0.57-1.25 H (test code = 358) GLUCOSE RANDOM 79 mg/dL 70-105 (BEAKER) (test code = 652) CALCIUM (BEAKER) 7.8 mg/dL 8.4-10.2 L (test code = 697) EGFR (BEAKER) (test 13 mL/min/1.73 ESTIMA ROBERTA GFR IS code = 1092) sq m NOT ACCURATE CREATININE CLEARANCE IN PREDICTING GLOMERULAR FILTRATION RATE . ESTIMATED GFR I S NOT APPLICABLE FOR DIALYSIS PATIEN TS. Leather Belt Shaper ID - EDASIB-TYPE NATRIURETIC FACTOR (BNP)2020-04-29 06:49:00 Test Item Value Reference Range Interpretation Comments B-TYPE NATRIURETIC PEPTIDE (BEAKER) 948 pg/mL 0-100 H (test code = 700) Leather Belt Shaper ID - [id number] 06:46:00 Test Item Value Reference Range Interpretation Comments MAGNESIUM (BEAKER) (test code = 1.8 mg/dL 1.6-2.6 627) Leather Belt Shaper ID - [id number] 06:46:00 Test Item Value Reference Range Interpretation Comments PHOSPHORUS (BEAKER) (test code = 4.1 mg/dL 2.3-4.7 604) Leather Belt Shaper ID - EDASIHEPATIC FUNCTION [id number] 06:46:00 Test Item Value Reference Range Interpretation Comments TOTAL PROTEIN (BEAKER) (test code = 3.6 gm/dL 6.0-8.3 L 770) ALBUMIN (BEAKER) (test code = 1145) 2.7 g/dL 3.5-5.0 L BILIRUBIN TOTAL (BEAKER) (test code 1.4 mg/dL 0.2-1.2 H = 377) BILIRUBIN DIRECT (BEAKER) (test 1.0 mg/dL 0.1-0.5 H code = 706) ALKALINE PHOSPHATASE (BEAKER) (test 122 U/L 40-150 code = 346) AST (SGOT) (BEAKER) (test code = 17 U/L 5-34 353) ALT (SGPT) (BEAKER) (test code = 11 U/L 6-55 347) Leather Belt Shaper ID - EDASIPROTHROMBIN TIME/[id number] 06:41:00 Test Item Value Reference Range Interpretation Comments PROTIME (BEAKER) (test code = 25.0 seconds 11.9-14.2 H 759) INR (BEAKER) (test code = 370) 2.33 <=5.90 Effective 11/26/2018: PT Reference Range ChangeNew: 11.9-14.2 Previous: 11.7- 14.7RECOMMENDED COUMADIN/WARFARIN INR THERAPY RANGESSTANDARD DOSE: 2.0-3.0 Includes: PROPHYLAXIS for venous thrombosis, systemic embolization; TREATMENT for venous thrombosis and/or pulmonary embolus.HIGH RISK: Target INR is2.5-3.5 for patients wiht mechanical heart valves.CBC W/PLT COUNT & AUTO [id number] 06:40:00 Test Item Value Reference Range Interpretation Comments WHITE BLOOD CELL COUNT 8.8 K/ L 3.5-10.5 (BEAKER) (test code = 775) RED BLOOD CELL COUNT 2.36 M/ L 4.63-6.08 L (BEAKER) (test code = 761) HEMOGLOBIN (BEAKER) 7.6 GM/DL 13.7-17.5 L (test code = 410) HEMATOCRIT (BEAKER) 22.9 % 40.1-51.0 L (test code = 411) MEAN CORPUSCULAR 97.0 fL 79.0-92.2 H Discordant mcv result VOLUME (BEAKER) (test compar ed to previous code = 753) result, clinica l correlation req uired MEAN CORPUSCULAR 32.2 pg 25.7-32.2 HEMOGLOBIN (BEAKER) (test code = 751) MEAN CORPUSCULAR 33.2 GM/DL 32.3-36.5 HEMOGLOBIN CONC (BEAKER) (test code = 752) RED CELL DISTRIBUTION 19.8 % 11.6-14.4 H WIDTH (BEAKER) (test code = 412) PLATELET COUNT 31 K/CU MM 150-450 L (BEAKER) (test code = 756) MEAN PLATELET VOLUME 11.9 fL 9.4-12.4 (BEAKER) (test code = 754) NUCLEATED RED BLOOD 0 /100 WBC 0-0 CELLS (BEAKER) (test code = 413) NEUTROPHILS RELATIVE 83 % PERCENT (BEAKER) (test code = 429) LYMPHOCYTES RELATIVE 10 % PERCENT (BEAKER) (test code = 430) MONOCYTES RELATIVE 3 % PERCENT (BEAKER) (test code = 431) EOSINOPHILS RELATIVE 1 % PERCENT (BEAKER) (test code = 432) BASOPHILS RELATIVE 1 % PERCENT (BEAKER) (test code = 437) NEUTROPHILS ABSOLUTE 7.30 K/ L 1.78-5.38 H COUNT (BEAKER) (test code = 670) LYMPHOCYTES ABSOLUTE 0.91 K/ L 1.32-3.57 L COUNT (BEAKER) (test code = 414) MONOCYTES ABSOLUTE 0.29 K/ L 0.30-0.82 L COUNT (BEAKER) (test code = 415) EOSINOPHILS ABSOLUTE 0.10 K/ L 0.04-0.54 COUNT (BEAKER) (test code = 416) BASOPHILS ABSOLUTE 0.05 K/ L 0.01-0.08 COUNT (BEAKER) (test code = 417) IMMATURE 2 % 0-1 H GRANULOCYTES-RELATIVE PERCENT (BEAKER) (test code = 2801) POCT-GLUCOSE [id number] 21:59:00 Test Item Value Reference Range Interpretation Comments POC-GLUCOSE METER 90 mg/dL 70-110 : TESTED A T [facility] 6720 (BEAKER) (test code = [facility], 1538) 07258: Leather Belt Shaper/Techni demetrice ID = [id number] for KALL ON, KAM POCT-GLUCOSE [id number] 17:53:00 Test Item Value Reference Range Interpretation Comments POC-GLUCOSE METER 87 mg/dL 70-110 : TESTED A T [facility] 6720 (BEAKER) (test code = [facility], 1538) 00081: Leather Belt Shaper/Techni demetrice ID = [id number] for Yosi it, Kyaira POCT-GLUCOSE [id number] 12:31:00 Test Item Value Reference Range Interpretation Comments POC-GLUCOSE METER 69 mg/dL 70-110 L : TESTED A T [facility] 6720 (BEAKER) (test code = [facility], 1538) 50643: Leather Belt Shaper/Techni demetrice ID = [id number] for Yosi it, Kyaira U/S, PELVIS, WITH [id number] 12:18:00Referring: Dr. Yary Eastman/ [place] for exam:->pre-kidney transplant evaluation of pelvic vessels [facility] 1955 Sex: MFINAL REPORT TECHNIQUE: Grayscale, color Doppler, and spectral Doppler ultrasound of the distal aorta and bilateral iliac arteries. INDICATION: 64-year-old man for renal transplant evaluation. COMPARISON: None. FINDINGS: Distal abdominal aorta is patent and measures 1.6 cm. Common iliac arteries are patent and measure 1.3 cm on the right and 1.1 cm on the left.External iliac arteries are patent and measure 0.7 cm on the right and 0.7 cm on the left.Internal iliac arteries are patent and measure 0.6 cm on the right and 0.5 cm on the left. Normal velocities and waveforms in the distal aorta and visualized bilateral iliac arteries. Bilateral common, external, andinternal iliac veins are patent. IMPRESSION:Unremarkable Doppler ultrasound of the bilateral iliac vessels. Signed: Alyx Valentine MDReport Verified Date/Time: 04/28/2020 12:18:58 Electronicallysigned by: ALYX VALENTINE MD on 04/28/2020 12:18 PMUS pelvis with [id number] 12:18:00Interface, External Ris In - 04/28/2020 12:21 PM CDTFINAL REPORT TECHNIQUE: Grayscale, color Doppler, and spectral Doppler ultrasound of the distal aorta and bilateral iliac arteries. INDICATION: 64-year-old man for renal transplant evaluation. COMPARISON: None. FINDINGS: Distal abdominal aorta is patent and measures 1.6 cm. Common iliac arteries are patent and measure 1.3 cm on the right and 1.1 cm on the left.External iliac arteries are patent and measure 0.7 cm on the right and 0.7 cm on the left.Internal iliac arteries are patent and measure 0.6 cm on the right and 0.5 cm on the left. Normal velocities and waveforms in the distal aorta and visualized bilateral iliac arteries. Bilateral common, external, and internal iliac veins are patent. IMPRESSION:Unremarkable Doppler ultrasound of the bilateral iliac vessels. Signed: Alyx Valentine MDReport Verified Date/Time: 04/28/2020 12:18:58 [facility] POCT-GLUCOSE [id number] 07:43:00 Test Item Value Reference Range Interpretation Comments POC-GLUCOSE METER 85 mg/dL 70-110 : TESTED A T [facility] 6720 (BEAKER) (test code = [facility] [place], 1538) 18[address]: Leather Belt Shaper/Techni demetrice ID = [id number] for Adams Villeda Prepare Leuko-Red [id number] 23:54:00 Test Item Value Reference Range Interpretation Comments CROSSMATCH (test code = 2264) COMPATIBLE Unit ABO (test code = A Pos 7477678) UNIT NUMBER (test code = [id number] 934-0) Status (test code = 8067281) TX_TIMEINCHART Blood Bank Product (test code RED BLOOD CELLS = 2263) PRODUCT CODE (test code = D3359T12 933-2) [facility] [id number] 22:37:00 Test Item Value Reference Range Interpretation Comments IgG 1 (test code = 60 mg/dL 382-929 L 2466-1) Igg 2 (test code = 36 mg/dL 241-700 L 0228570) IgG 3 (test code = 3 mg/dL 22-178 L 2468-7) Igg 4 (test code = <0.5 4-86 L 7400082) Igg,Serum (test code = 107 mg/dL 600-1540 L 1753765) LATRELL (test code = LATRELL) Performing Lab EZ [facility] [address] [place] [address] Chun Dunne MD, PhD, JEAN Lab Interpretation (test Abnormal code = 58625-7) [facility] [id number] 22:13:00 Test Item Value Reference Range Interpretation Comments POC-GLUCOSE METER 79 mg/dL 70-110 : Notified RN/MD: TESTED ([facility]) (test code = AT [place] [id number]) [facility], [address]: Leather Belt Shaper/Techni demetrice ID = [id number] for KENNETH MORAES POCT-GLUCOSE [id number] 18:06:00 Test Item Value Reference Range Interpretation Comments POC-GLUCOSE METER 105 mg/dL 70-110 : TESTED A T [place] [id number] ([facility]) (test code = PARESH Garcia [facility], 1538) [address]: Leather Belt Shaper/Techni demetrice ID = [id number] for KWASI GARCIA, IRIS POC ACTIVATED CLOTTING [id number] 17:07:00 Test Item Value Reference Range Interpretation Comments Activated Clotting Time 147 sec : 74 -137 seconds, (test code = 441) Baseline: TESTED AT [address], [address]: Leather Belt Shaper/Techni demetrice ID = [id number] for BA TTAD, SEMAJ [id number] 17:07:00 Test Item Value Reference Range Interpretation Comments ACTIVATED CLOTTING TIME 147 sec : 74 -137 seconds, ([facility]) (test code = Baseli ne: TESTED AT [employer]) [address], [address]: Leather Belt Shaper/Techni demetrice ID = [id number] for BA TTAD, SEMAJ POCT-GLUCOSE [id number] 17:05:00 Test Item Value Reference Range Interpretation Comments POC-GLUCOSE METER 127 mg/dL 70-110 H : TESTED A T [place] [id number] ([facility]) (test code [facility], = 1538) [address]: Leather Belt Shaper/Techni demetrice ID = [id number] for CONR OD DUPLECHIAN (V), DYLLAN Hemoglobin and [id number] 17:00:00 Test Item Value Reference Range Interpretation Comments Hemoglobin (test code = 8.3 13.7- 17.5 GM/DL L 786-4) Hematocrit (test code = 24.8 % 40.1-51 L 4544-3) LATRELL (test code = LATRELL) Leather Belt Shaper ID - [id number] Lab Interpretation (test Abnormal code = 23791-3) [facility] CenterHEMOGLOB[facility] AND [id number] 17:00:00 Test Item Value Reference Range Interpretation Comments HEMOGLOBIN ([facility]) (test code = 8.3 GM/DL 13.7-17.5 L 410) HEMATOCRIT ([facility]) (test code = 24.8 % 40.1-51.0 L 411) Leather Belt Shaper ID - [id number]-GLUCOSE [id number] 15:34:00 Test Item Value Reference Range Interpretation Comments POC-GLUCOSE METER 132 mg/dL 70-110 H : TESTED A T [facility] 6720 ([facility]) (test code = [facility], 153) [address]: Leather Belt Shaper/Techni demetrice ID = [id number] for BA TTAD, SEMAJ POCT-GLUCOSE [id number] 15:23:00 Test Item Value Reference Range Interpretation Comments POC-GLUCOSE METER 63 mg/dL 70-110 L : TESTED A T [facility] 6720 ([facility]) (test code = [facility], 153) [address]: Leather Belt Shaper/Techni demetrice ID = [id number] for RYAN MORENO MARCUS [id number] 14:00:00 Test Item Value Reference Range Interpretation Comments ACTIVATED CLOTTING TIME 252 sec : 74 -137 seconds, ([facility]) (test code = Baseli ne: TESTED AT 441) [facility] 67[address] [facility], 770 30: Leather Belt Shaper/Techni demetrice ID = [id number] for Ortiz SANCHEZ POCT-GLUCOSE [id number] 11:36:00 Test Item Value Reference Range Interpretation Comments POC-GLUCOSE METER 75 mg/dL 70-110 : TESTED A T [facility] 6720 ([facility]) (test code = [facility], 1538) [address]: Leather Belt Shaper/Techni demetrice ID = [id number] for LO GUERRERO POCT-GLUCOSE [id number] 10:10:00 Test Item Value Reference Range Interpretation Comments POC-GLUCOSE METER 79 mg/dL 70-110 : TESTED A T [facility] 6720 ([facility]) (test code = [facility], 1538) [address]: Leather Belt Shaper/Techni demetrice ID = [id number] for MORG AN, IRIS TACROLIMUS [id number] 09:38:00 Test Item Value Reference Range Interpretation Comments TACROLIMUS BLOOD (BEAKER) (test 12.2 ng/mL 10.0-20.0 code = 657) Leather Belt Shaper ID - SAMY MUÑOZEBASIC METABOLIC [id number] 06:45:00 Test Item Value Reference Range Interpretation Comments SODIUM (BEAKER) 140 meq/L 136-145 (test code = 381) POTASSIUM (BEAKER) 4.3 meq/L 3.5-5.1 (test code = 379) CHLORIDE (BEAKER) 112 meq/L 98-107 H (test code = 382) CO2 (BEAKER) (test 14 meq/L 22-29 L code = 355) BLOOD UREA NITROGEN 86 mg/dL 7-21 H (BEAKER) (test code = 354) CREATININE (BEAKER) 5.09 mg/dL 0.57-1.25 H (test code = 358) GLUCOSE RANDOM 106 mg/dL 70-105 H (BEAKER) (test code = 652) CALCIUM (BEAKER) 7.5 mg/dL 8.4-10.2 L (test code = 697) EGFR (BEAKER) (test 12 mL/min/1.73 ESTIMA ROBERTA GFR IS code = 1092) sq m NOT ACCURATE CREATININE CLEARANCE IN PREDICTING GLOMERULAR FILTRATION RATE . ESTIMATED GFR I S NOT APPLICABLE FOR DIALYSIS PATIEN TS. Leather Belt Shaper ID - TORREYASISpecimen slightly [id number] 06:43:00 Test Item Value Reference Range Interpretation Comments MAGNESIUM (BEAKER) (test code = 1.8 mg/dL 1.6-2.6 627) Leather Belt Shaper ID - [id number] 06:43:00 Test Item Value Reference Range Interpretation Comments PHOSPHORUS (BEAKER) (test code = 4.2 mg/dL 2.3-4.7 604) Leather Belt Shaper ID - EDASIHEPATIC FUNCTION [id number] 06:43:00 Test Item Value Reference Range Interpretation Comments TOTAL PROTEIN (BEAKER) (test code = 3.5 gm/dL 6.0-8.3 L 770) ALBUMIN (BEAKER) (test code = 1145) 2.6 g/dL 3.5-5.0 L BILIRUBIN TOTAL (BEAKER) (test code 2.8 mg/dL 0.2-1.2 H = 377) BILIRUBIN DIRECT (BEAKER) (test 1.5 mg/dL 0.1-0.5 H code = 706) ALKALINE PHOSPHATASE (BEAKER) (test 122 U/L 40-150 code = 346) AST (SGOT) (BEAKER) (test code = 16 U/L 5-34 353) ALT (SGPT) (BEAKER) (test code = 11 U/L 6-55 347) Leather Belt Shaper ID - EDASISpecimen slightly ictericB-TYPE NATRIURETIC FACTOR (BNP) 2020-04-27 06:40:00 Test Item Value Reference Range Interpretation Comments B-TYPE NATRIURETIC PEPTIDE (BEAKER) 871 pg/mL 0-100 H (test code = 700) Leather Belt Shaper ID - ELIZABETHAYA LCBC W/PLT COUNT & AUTO [id number] 06:38:00 Test Item Value Reference Range Interpretation Comments WHITE BLOOD CELL COUNT 8.1 K/ L 3.5-10.5 (BEAKER) (test code = 775) RED BLOOD CELL COUNT 2.84 M/ L 4.63-6.08 L (BEAKER) (test code = 761) HEMOGLOBIN (BEAKER) 8.8 GM/DL 13.7-17.5 L Discorda nt HGB result (test code = 410) compared t o previous result; clinica l correlation required.Patien t received blood products. HEMATOCRIT (BEAKER) 26.4 % 40.1-51.0 L (test code = 411) MEAN CORPUSCULAR 93.0 fL 79.0-92.2 H Discordant MCV result VOLUME (BEAKER) (test compar ed to previous code = 753) result; clinica l correlation req uired. MEAN CORPUSCULAR 31.0 pg 25.7-32.2 HEMOGLOBIN (BEAKER) (test code = 751) MEAN CORPUSCULAR 33.3 GM/DL 32.3-36.5 HEMOGLOBIN CONC (BEAKER) (test code = 752) RED CELL DISTRIBUTION 18.6 % 11.6-14.4 H WIDTH (BEAKER) (test code = 412) PLATELET COUNT 31 K/CU MM 150-450 L (BEAKER) (test code = 756) MEAN PLATELET VOLUME 9.5 fL 9.4-12.4 (BEAKER) (test code = 754) NUCLEATED RED BLOOD 0 /100 WBC 0-0 CELLS (BEAKER) (test code = 413) NEUTROPHILS RELATIVE 87 % PERCENT (BEAKER) (test code = 429) LYMPHOCYTES RELATIVE 6 % PERCENT (BEAKER) (test code = 430) MONOCYTES RELATIVE 3 % PERCENT (BEAKER) (test code = 431) EOSINOPHILS RELATIVE 1 % PERCENT (BEAKER) (test code = 432) BASOPHILS RELATIVE 0 % PERCENT (BEAKER) (test code = 437) NEUTROPHILS ABSOLUTE 7.03 K/ L 1.78-5.38 H COUNT (BEAKER) (test code = 670) LYMPHOCYTES ABSOLUTE 0.48 K/ L 1.32-3.57 L COUNT (BEAKER) (test code = 414) MONOCYTES ABSOLUTE 0.26 K/ L 0.30-0.82 L COUNT (BEAKER) (test code = 415) EOSINOPHILS ABSOLUTE 0.08 K/ L 0.04-0.54 COUNT (BEAKER) (test code = 416) BASOPHILS ABSOLUTE 0.02 K/ L 0.01-0.08 COUNT (BEAKER) (test code = 417) IMMATURE 2 % 0-1 H GRANULOCYTES-RELATIVE PERCENT (BEAKER) (test code = 2801) PROTHROMBIN [id number] 06:26:00 Test Item Value Reference Range Interpretation Comments PROTIME (BEAKER) (test code = 23.4 seconds 11.9-14.2 H 759) INR (BEAKER) (test code = 370) 2.14 <=5.90 Effective 11/26/2018: PT Reference Range ChangeNew: 11.9-14.2 Previous: 11.7- 14.7RECOMMENDED COUMADIN/WARFARIN INR THERAPY RANGESSTANDARD DOSE: 2.0-3.0 Includes: PROPHYLAXIS for venous thrombosis, systemic embolization; TREATMENT for venous thrombosis and/or pulmonary embolus.HIGH RISK: Target INR is2.5-3.5 for patients wiht mechanical heart valves.POCT-GLUCOSE [id number] 19:59:00 Test Item Value Reference Range Interpretation Comments POC-GLUCOSE METER 108 mg/dL 70-110 : TESTED A T [facility] 6720 (BEAKER) (test code = [facility] [place], 1538) [address]: Leather Belt Shaper/Techni demetrice ID = [id number] for Ba iley, Lesa U/S, ABDOMINAL, [id number] 17:14:00Referring: Dr. Yary Eastman/ [place] Liver lesions, and Hepatic Vasculature with Doppler. Determine amount of ascites - to determine need for ParacentesisReason for exam:- >Evaluate Liver lesions, and Hepatic Vasculature with DopplerHx of Liver cystReason for exam:->Determine amount of ascites - to determine need for ParacentesisShould this be performed at the bedside?->Yes [facility] : 1955 Sex: MFINAL REPORT TECHNIQUE: Grayscale ultrasound of the abdomen with color Doppler and spectral Doppler ultrasound of the portal/hepatic vasculature. INDICATION: 64-year-old man with metabolic acidosis, acute kidney injury, generalized weakness, fatigue, and hypervolemia. COMPARISON: Abdomen ultrasound 02/24/2020, abdomen MRI 05/13/2019. FINDINGS: LIVER: Suboptimal evaluation of the left hepatic lobe secondary to patient agitation. Liver is normal in size with coarsened echotexture and nodular contour, consistent with cirrhosis. No definite focal lesion. HEPATIC VASCULATURE: Main portal vein is prominent and measures 1.4 cm in diameter. Portal veins are patent withnormal directionality. Flow velocity in the main portal vein is within normal limits. Proper and right hepatic arteries are patent with normal resistive indices. Normal acceleration time in the proper hepatic artery. Left hepatic artery is not clearly visualized as this region was suboptimally evaluated secondary to patient agitation. Hepatic veins and confluence are patent. TIPS stent is patent withintrastent velocities which range between 109-154 cm/s. BILIARY:Gallbladder: Stones in the gallbladder. Gallbladder wall is mildly thickened up to 0.4 cm, nonspecific finding in the setting of cirrhosis/ascites. No pericholecystic fluid or gallbladder distention. Reported negative sonographic Baltazar sign.Common bile duct measures 0.3 cm, within normal limits. No intrahepatic biliary ductal dilatation. PANCREAS: Visualized portions of the pancreas are unremarkable. SPLEEN: Spleen is prominent and measures 16 cm. PERITONEUM: Small volume ascites in the right upper quadrant. KIDNEYS: Both kidneys are mildly echogenic. Right kidney measures 8.4 x 4.2 x 3.7 cm with cortical thickness of 1.1 cm. Left kid vianney measures 9.7 x 5 x 4.5 cm with cortical thickness of 1.2 cm. No hydronephrosis. No sonographically evident mass. MIDLINE VASCULATURE: Inferior vena cava is not clearly visualized due to overlying bowel gas. Maximum visualized aortic diameter is 1.9 cm. Splenic artery and vein are patent. IMPRESSION:Suboptimal evaluation of the left hepatic lobe secondary to patient agitation. Cirrhosis. No definite focal liver lesion. Left hepatic artery is not clearly visualized. Otherwise, unremarkable Doppler evaluation of the portal and hepatic vasculature. Patent TIPS stent. Splenomegaly. Small volume ascites. Mildly echogenic kidneys, suggestive of medical renal disease. Cholelithiasis. Signed: Alyx Valentine MDReport Verified Date/Time: 04/26/2020 17:14:41 U/S, DUPLEX, [id number] 17:14:00Referring: Dr. Yary Eastman/ [place] for exam:->Eval liver lesions and hepatic vasculature wDopplers- Determine amt of ascites to determine for paracentesisShould this be performed at [facility]?->[facility] : 1955 Sex: MFINAL REPORT TECHNIQUE: Grayscale ultrasound of the abdomen with color Doppler and spectral Doppler ultrasound of the portal/hepatic vasculature. INDICATION: 64-year-old man with metabolic acidosis, acute kidney injury, generalized weakness, fatigue, and hypervolemia. COMPARISON: Abdomen ultrasound 02/24/2020, abdomen MRI 05/13/2019. FINDINGS: LIVER: Suboptimal evaluation of the left hepatic lobe secondary to patient agitation. Liver is normal in size with coarsened echotexture and nodular contour, consistent with cirrhosis. No definite focal lesion. HEPATIC VASCULATURE: Main portal vein is prominent and measures 1.4 cm in diameter. Portal veins are patent withnormal directionality. Flow velocity in the main portal vein is within normal limits. Proper and right hepatic arteries are patent with normal resistive indices. Normal acceleration time in the proper hepatic artery. Left hepatic artery is not clearly visualized as this region was suboptimally evaluated secondary to patient agitation. Hepatic veins and confluence are patent. TIPS stent is patent withintrastent velocities which range between 109-154 cm/s. BILIARY:Gallbladder: Stones in the gallbladder. Gallbladder wall is mildly thickened up to 0.4 cm, nonspecific finding in the setting of cirrhosis/ascites. No pericholecystic fluid or gallbladder distention. Reported negative sonographic Baltazar sign.Common bile duct measures 0.3 cm, within normal limits. No intrahepatic biliary ductal dilatation. PANCREAS: Visualized portions of the pancreas are unremarkable. SPLEEN: Spleen is prominent and measures 16 cm. PERITONEUM: Small volume ascites in the right upper quadrant. KIDNEYS: Both kidneys are mildly echogenic. Right kidney measures 8.4 x 4.2 x 3.7 cm with cortical thickness of 1.1 cm. Left kid vianney measures 9.7 x 5 x 4.5 cm with cortical thickness of 1.2 cm. No hydronephrosis. No sonographically evident mass. MIDLINE VASCULATURE: Inferior vena cava is not clearly visualized due to overlying bowel gas. Maximum visualized aortic diameter is 1.9 cm. Splenic artery and vein are patent. IMPRESSION:Suboptimal evaluation of the left hepatic lobe secondary to patient agitation. Cirrhosis. No definite focal liver lesion. Left hepatic artery is not clearly visualized. Otherwise, unremarkable Doppler evaluation of the portal and hepatic vasculature. Patent TIPS stent. Splenomegaly. Small volume ascites. Mildly echogenic kidneys, suggestive of medical renal disease. Cholelithiasis. Signed: Likhari,Gauruv MDReport Verified Date/Time: 04/26/2020 17:14:41 US abdomen [id number] 17:14:00Interface, External Ris In - 04/26/2020 5:16 PM CDTFINAL REPORT TECHNIQUE: Grayscale ultrasound of the abdomen with color Doppler and spectral Doppler ultrasound of the portal/hepatic vasculature. INDICATION: 64-year-old man with metabolic acidosis, acute kidney injury, generalized weakness, fatigue, and hypervolemia. COMPARISON: Abdomen ultrasound 02/24/2020, abdomen MRI 05/13/2019. FINDINGS: LIVER: Suboptimal evaluation of the left hepatic lobe secondary to patient agitation. Liver is normal in size with coarsened echotexture and nodular contour, consistent with cirrhosis.No definite focal lesion. HEPATIC VASCULATURE: Main portal vein is prominent and measures 1.4 cm in diameter. Portal veins are patent with normal directionality. Flow velocity in the main portal vein is within normal limits. Proper and right hepatic arteries are patent with normal resistive indices. No rmal acceleration time in the proper hepatic artery. Left hepatic artery is not clearly visualized as this region was suboptimally evaluated secondary to patient agitation. Hepatic veins and confluenceare patent. TIPS stent is patent with intrastent velocities which range between 109-154 cm/s. BILIARY :Gallbladder: Stones in the gallbladder. Gallbladder wall is mildly thickened up to 0.4 cm, nonspecific finding in the setting of cirrhosis/ascites. No pericholecystic fluid or gallbladder distention. Reported negative sonographic Baltazar sign.Common bile duct measures 0.3 cm, within normal limits. No i ntrahepatic biliary ductal dilatation. PANCREAS: Visualized portions of the pancreas are unremarkable. SPLEEN: Spleen is prominent and measures 16 cm. PERITONEUM: Small volume ascites in the right upper quadrant. KIDNEYS: Both kidneys are mildly echogenic. Right kidney measures 8.4 x 4.2 x 3.7 cm with cortical thickness of 1.1 cm. Left kidney measures 9.7 x 5 x 4.5 cm with cortical thickness of 1.2 cm. No hydronephrosis. No sonographically evident mass. MIDLINE VASCULATURE: Inferior vena cava is notclearly visualized due to overlying bowel gas. Maximum visualized aortic diameter is 1.9 cm. Splenicartery and vein are patent. IMPRESSION:Suboptimal evaluation of the left hepatic lobe secondary to patient agitation. Cirrhosis. No definite focal liver lesion. Left hepatic artery is not clearly visualized. Otherwise, unremarkable Doppler evaluation of the portal and hepatic vasculature. Patent TIPSstent. Splenomegaly. Small volume ascites. Mildly echogenic kidneys, suggestive of medical renal disease. Cholelithiasis. Signed: Alyx Valentine MDReport Verified Date/Time: 04/26/2020 17:14:41 [facility] 2020-[facility] 17:14:00Interface, External Ris In - 04/26/2020 5:16 PM CDTFINAL REPORT TECHNIQUE: Grayscale ultrasound of the abdomen with color Doppler and spectral Doppler ultrasound of the portal/hepatic vasculature. INDICATION: 64-year-old man with metabolic acidosis, acute kidney injury, generalized weakness, fatigue, and hypervolemia. COMPARISON: Abdomen ultrasound 02/24/2020, abdomen MRI 05/13/2019. FINDINGS: LIVER: Suboptimal evaluation of the left hepatic lobe secondary to patient agitation. Liver is normal in size with coarsened echotexture and nodular contour, consistent with cirrhosis.No definite focal lesion. HEPATIC VASCULATURE: Main portal vein is prominent and measures 1.4 cm in diameter. Portal veins are patent with normal directionality. Flow velocity in the main portal vein is within normal limits. Proper and right hepatic arteries are patent with normal resistive indices. No rmal acceleration time in the proper hepatic artery. Left hepatic artery is not clearly visualized as this region was suboptimally evaluated secondary to patient agitation. Hepatic veins and confluenceare patent. TIPS stent is patent with intrastent velocities which range between 109-154 cm/s. BILIARY :Gallbladder: Stones in the gallbladder. Gallbladder wall is mildly thickened up to 0.4 cm, nonspecific finding in the setting of cirrhosis/ascites. No pericholecystic fluid or gallbladder distention. Reported negative sonographic Baltazar sign.Common bile duct measures 0.3 cm, within normal limits. No i ntrahepatic biliary ductal dilatation. PANCREAS: Visualized portions of the pancreas are unremarkable. SPLEEN: Spleen is prominent and measures 16 cm. PERITONEUM: Small volume ascites in the right upper quadrant. KIDNEYS: Both kidneys are mildly echogenic. Right kidney measures 8.4 x 4.2 x 3.7 cm with cortical thickness of 1.1 cm. Left kidney measures 9.7 x 5 x 4.5 cm with cortical thickness of 1.2 cm. No hydronephrosis. No sonographically evident mass. MIDLINE VASCULATURE: Inferior vena cava is notclearly visualized due to overlying bowel gas. Maximum visualized aortic diameter is 1.9 cm. Splenicartery and vein are patent. IMPRESSION:Suboptimal evaluation of the left hepatic lobe secondary to patient agitation. Cirrhosis. No definite focal liver lesion. Left hepatic artery is not clearly visualized. Otherwise, unremarkable Doppler evaluation of the portal and hepatic vasculature. Patent TIPSstent. Splenomegaly. Small volume ascites. Mildly echogenic kidneys, suggestive of medical renal disease. Cholelithiasis. Signed: Alyx Valentine MDReport Verified Date/Time: 04/26/2020 17:14:41 [facility] [id number] 12:29:00 Test Item Value Reference Range Interpretation Comments POC-GLUCOSE METER 100 mg/dL 70-110 : TESTED A T [facility] 6720 (BEAKER) (test code = [facility] [place], 1538) [address]: Leather Belt Shaper/Techni demetrice ID = [id number] for Adams Ordaz [id number] 10:27:00 Test Item Value Reference Range Interpretation Comments Haptoglobin (test code = 15 mg/dL 14-258 4542-7) LATRELL (test code = LATRELL) Leather Belt Shaper ID - JAVONG Lab Interpretation (test Normal code = 31857-0) [facility]2020[facility] 10:27:00 Test Item Value Reference Range Interpretation Comments HAPTOGLOBIN (AKER) (test code = 15 mg/dL 14-258 366) Leather Belt Shaper ID - JAVONGCBC W/PLT COUNT & AUTO [id number] 10:04:00 Test Item Value Reference Range Interpretation Comments WHITE BLOOD CELL COUNT ([facility]) 1.5 K/ L 3.5-10.5 L (test code = 775) RED BLOOD CELL COUNT ([facility]) 1.66 M/ L 4.63-6.08 L (test code = 761) HEMOGLOBIN (BEAKER) (test code = 5.4 GM/DL 13.7-17.5 LL 410) HEMATOCRIT (BEAKER) (test code = 17.1 % 40.1-51.0 L 411) MEAN CORPUSCULAR VOLUME (BEAKER) 103.0 fL 79.0-92.2 H (test code = 753) MEAN CORPUSCULAR HEMOGLOBIN 32.5 pg 25.7-32.2 H (BEAKER) (test code = 751) MEAN CORPUSCULAR HEMOGLOBIN CONC 31.6 GM/DL 32.3-36.5 L (BEAKER) (test code = 752) RED CELL DISTRIBUTION WIDTH 15.7 % 11.6-14.4 H (BEAKER) (test code = 412) PLATELET COUNT (BEAKER) (test code 36 K/CU MM 150-450 L = 756) MEAN PLATELET VOLUME (BEAKER) 11.8 fL 9.4-12.4 (test code = 754) NUCLEATED RED BLOOD CELLS (BEAKER) 0 /100 WBC 0-0 (test code = 413) Vitamin B12 and [id number] 10:02:00 Test Item Value Reference Range Interpretation Comments Vitamin B12 (test code = 1346 pg/mL 213-816 H 2132-9) Folate (test code = 2284-8) 9.20 ng/mL >=7.00 LATRELL (test code = LATRELL) Leather Belt Shaper ID - RM Lab Interpretation (test Abnormal code = 99167-7) [facility] CenterVITAMIN B12 AND [id number] 10:02:00 Test Item Value Reference Range Interpretation Comments VITAMIN B12 (BEAKER) (test code = 1346 pg/mL 213-816 H 774) FOLATE (BEAKER) (test code = 362) 9.20 ng/mL >=7.00 Leather Belt Shaper ID - RMManual [id number] 10:00:00 Test Item Value Reference Range Interpretation Comments % Neutros (test code = 71 % 2816) % Lymphs (test code = 26 % 2817) % Monos (test code = 1 % 2818) % Eos (test code = 2819) 1 % % Baso (test code = 1 % 2820) # Neutros (test code = 1.14 K/ul 1.78-5.38 L 2830) # Lymphs (test code = 0.42 K/ul 1.32-3.57 L 2831) # Monos (test code = 0.02 K/uL 0.3-0.82 L 2832) # Eos (test code = 2834) 0.02 K/uL 0.04-0.54 L # Baso (test code = 0.02 K/uL 0.01-0.08 2835) Total Counted (test code 100 = 1351) WBC Morphology (test Normal code = 487) Platelet Morphology Normal (test code = 486) Anisocytosis (test code 2+ moderate = 961) Microcytes (test code = 2+ moderate 965) Macrocytes (test code = 1+ few 964) Poikilocytes (test code 3+ many = 966) Ovalocytes (test code = 1+ few 477) Acanthocytes (test code 1+ few = 471) Artifact (test code = Present 3432) Platelet Conc (test code Decreased = 3438) LATRELL (test code = LATRELL) Leather Belt Shaper ID - IsabellaOperator ID - Sadia Reeder comments: Slide comments: Lab Interpretation (test Abnormal code = 93233-8) [facility](CELLAVISION MANUAL DIFF)2020-04-26 10:00:00 Test Item Value Reference Range Interpretation Comments NEUTROPHILS - REL 71 % (CELLAVISION)(BEAKER) (test code = 2816) LYMPHOCYTES - REL 26 % (CELLAVISION)(BEAKER) (test code = 2817) MONOCYTES - REL 1 % (CELLAVISION)(BEAKER) (test code = 2818) EOSINOPHILS - REL 1 % (CELLAVISION)(BEAKER) (test code = 2819) BASOPHILS - REL 1 % (CELLAVISION)(BEAKER) (test code = 2820) NEUTROPHILS - ABS 1.14 K/ul 1.78-5.38 L (CELLAVISION)(BEAKER) (test code = 2830) LYMPHOCYTES - ABS 0.42 K/ul 1.32-3.57 L (CELLAVISION)(BEAKER) (test code = 2831) MONOCYTES - ABS 0.02 K/uL 0.30-0.82 L (CELLAVISION)(BEAKER) (test code = 2832) EOSINOPHILS - ABS 0.02 K/uL 0.04-0.54 L (CELLAVISION)(BEAKER) (test code = 2834) BASOPHILS - ABS 0.02 K/uL 0.01-0.08 (CELLAVISION)(BEAKER) (test code = 2835) TOTAL COUNTED (BEAKER) (test code 100 = 1351) WBC MORPHOLOGY (BEAKER) (test Normal code = 487) PLT MORPHOLOGY (BEAKER) (test Normal code = 486) ANISOCYTOSIS (BEAKER) (test code 2+ moderate = 961) MICROCYTES (BEAKER) (test code = 2+ moderate 965) MACROCYTES (BEAKER) (test code = 1+ few 964) POIKILOCYTES (BEAKER) (test code 3+ many = 966) OVALOCYTES (BEAKER) (test code = 1+ few 477) ACANTHOCYTES (BEAKER) (test code 1+ few = 471) ARTIFACT (CELLAVISION)(BEAKER) Present (test code = 3432) PLATELET CONCENTRATION Decreased (CELLAVISION)(BEAKER) (test code = 3438) Leather Belt Shaper ID - [id number] ID - Sadia Reeder comments: Slide comments: ABORH, [id number] 09:22:00 Test Item Value Reference Range Interpretation Comments ABO Grouping (test code = 2588) A Rh Factor (test code = 2589) POS [facility] CenterType and screen, [id number] 09:15:00 Test Item Value Reference Range Interpretation Comments Ab Scrn (test code = 890-4) NEGATIVE Echo 2 [facility] CenterReticulocyte [id number] 08:41:00 Test Item Value Reference Range Interpretation Comments % Retic (test code = 3.2 % 0.5-1.8 H 08735-1) LATRELL (test code = LATRELL) Leather Belt Shaper ID - [id number] Lab Interpretation (test Abnormal code = 95897-2) [facility] CenterRETICULOCYTE [id number] 08:41:00 Test Item Value Reference Range Interpretation Comments RETICULOCYTE COUNT PCT (BEAKER) (test 3.2 % 0.5-1.8 H code = 575) Leather Belt Shaper ID - [id number] W/PLT COUNT & AUTO [id number] 08:35:00 Test Item Value Reference Range Interpretation Comments WHITE BLOOD CELL COUNT (BEAKER) 1.8 K/ L 3.5-10.5 L (test code = 775) RED BLOOD CELL COUNT (BEAKER) 1.69 M/ L 4.63-6.08 L (test code = 761) HEMOGLOBIN (BEAKER) (test code = 5.5 GM/DL 13.7-17.5 LL 410) HEMATOCRIT (BEAKER) (test code = 17.1 % 40.1-51.0 L 411) MEAN CORPUSCULAR VOLUME (BEAKER) 101.2 fL 79.0-92.2 H (test code = 753) MEAN CORPUSCULAR HEMOGLOBIN 32.5 pg 25.7-32.2 H (BEAKER) (test code = 751) MEAN CORPUSCULAR HEMOGLOBIN CONC 32.2 GM/DL 32.3-36.5 L (BEAKER) (test code = 752) RED CELL DISTRIBUTION WIDTH 15.6 % 11.6-14.4 H (BEAKER) (test code = 412) PLATELET COUNT (BEAKER) (test code 38 K/CU MM 150-450 L = 756) MEAN PLATELET VOLUME (BEAKER) 12.1 fL 9.4-12.4 (test code = 754) NUCLEATED RED BLOOD CELLS (BEAKER) 0 /100 WBC 0-0 (test code = 413) Lactate dehydrogenase (LDH)2020-04-26 08:34:00 Test Item Value Reference Range Interpretation Comments LDH (test code = 156 U/L 125-220 Specimen 2532-0) slightly hemolyzed LATRELL (test code = LATRELL) Leather Belt Shaper ID - MARLINE Lab Interpretation Normal (test code = 41233-1) [facility] Center[facility]CT[facility] DEHYDROGENASE (LDH)2020-04-26 08:34:00 Test Item Value Reference Range Interpretation Comments LACTATE DEHYDROGENASE 156 U/L 125-220 Specim en slightly (BEAKER) (test code = hemoly zed 635) Leather Belt Shaper ID - JOHNYACROLIMUS [id number] 08:33:00 Test Item Value Reference Range Interpretation Comments TACROLIMUS BLOOD (BEAKER) (test 5.6 ng/mL 10.0-20.0 L code = 657) Leather Belt Shaper ID - JUNO WPOCT-GLUCOSE [id number] 07:58:00 Test Item Value Reference Range Interpretation Comments POC-GLUCOSE METER 87 mg/dL 70-110 : TESTED A T [facility] 6720 (BEAKER) (test code = PARESH Garcia [place], 1538) [address]: Leather Belt Shaper/Techni demetrice ID = [id number] for Adams Villeda [id number] 06:19:00 Test Item Value Reference Range Interpretation Comments MAGNESIUM (BEAKER) 2.0 mg/dL 1.6-2.6 Specimen slightly (test code = 627) hemolyzed Leather Belt Shaper ID - eduasIUMHTBNWDM2190-75-02 06:19:00 Test Item Value Reference Range Interpretation Comments PHOSPHORUS (BEAKER) 5.4 mg/dL 2.3-4.7 H Specimen slightly (test code = 604) hemolyzed Leather Belt Shaper ID - edasiHEPATIC FUNCTION [id number] 06:19:00 Test Item Value Reference Range Interpretation Comments TOTAL PROTEIN (BEAKER) 3.6 gm/dL 6.0-8.3 L Speci men slightly (test code = 770) hemolyzed ALBUMIN (BEAKER) (test 2.5 g/dL 3.5-5.0 L Speci men slightly code = 1145) hemolyzed BILIRUBIN TOTAL 1.8 mg/dL 0.2-1.2 H Specimen sli ghtly (BEAKER) (test code = hemoly zed 377) BILIRUBIN DIRECT 1.1 mg/dL 0.1-0.5 H Specimen sl ightly (BEAKER) (test code = hemoly zed 706) ALKALINE PHOSPHATASE 126 U/L 40-150 (BEAKER) (test code = 346) AST (SGOT) (BEAKER) 18 U/L 5-34 Specimen slightly (test code = 353) hemolyzed ALT (SGPT) (BEAKER) 11 U/L 6-55 Specimen slightly (test code = 347) hemolyzed Leather Belt Shaper ID - edasiBASIC METABOLIC [id number] 06:19:00 Test Item Value Reference Range Interpretation Comments SODIUM (BEAKER) 138 meq/L 136-145 (test code = 381) POTASSIUM (BEAKER) 4.8 meq/L 3.5-5.1 Specimen slightly (test code = 379) hemolyzed CHLORIDE (BEAKER) 112 meq/L 98-107 H (test code = 382) CO2 (BEAKER) (test 14 meq/L 22-29 L code = 355) BLOOD UREA NITROGEN 91 mg/dL 7-21 H (BEAKER) (test code = 354) CREATININE (BEAKER) 5.24 mg/dL 0.57-1.25 H Specimen slightly (test code = 358) hemolyzed GLUCOSE RANDOM 85 mg/dL 70-105 (BEAKER) (test code = 652) CALCIUM (BEAKER) 7.6 mg/dL 8.4-10.2 L (test code = 697) EGFR (BEAKER) (test 11 mL/min/1.73 ESTIMA ROBERTA GFR IS code = 1092) sq m NOT ACCURATE CREATININE CLEARANCE IN PREDICTING GLOMERULAR FILTRATION RATE . ESTIMATED GFR I S NOT APPLICABLE FOR DIALYSIS PATIEN TS. Leather Belt Shaper ID - edasiB-TYPE NATRIURETIC FACTOR (BNP)2020-04-26 06:14:00 Test Item Value Reference Range Interpretation Comments B-TYPE NATRIURETIC PEPTIDE (BEAKER) 616 pg/mL 0-100 H (test code = 700) Leather Belt Shaper ID - edasiPROTHROMBIN TIME/[id number] 05:58:00 Test Item Value Reference Range Interpretation Comments PROTIME (BEAKER) (test code = 23.3 seconds 11.9-14.2 H 759) INR (BEAKER) (test code = 370) 2.13 <=5.90 Effective 11/26/2018: PT Reference Range ChangeNew: 11.9-14.2 Previous: 11.7- 14.7RECOMMENDED COUMADIN/WARFARIN INR THERAPY RANGESSTANDARD DOSE: 2.0-3.0 Includes: PROPHYLAXIS for venous thrombosis, systemic embolization; TREATMENT for venous thrombosis and/or pulmonary embolus.HIGH RISK: Target INR is2.5-3.5 for patients wiht mechanical heart valves.POCT-GLUCOSE [id number] 22:18:00 Test Item Value Reference Range Interpretation Comments POC-GLUCOSE METER 90 mg/dL 70-110 : TESTED A T [facility] 6720 (BEAKER) (test code = PARESH [place], 1538) [address]: Leather Belt Shaper/Techni demetrice ID = [id number] for Lesa Kay Blood gas, [id number] 21:59:00 Test Item Value Reference Range Interpretation Comments pH, Robbie (test code = 2746-6) 7.28 7.32-7.42 L pCO2, Robbie (test code = 755) 29 41- 51 mm Hg L pO2, Robbie (test code = 2705-2) 129 25- 40 mm Hg H O2 Sat, Robbie (test code = 2711-0) 98.4 % 40-70 H HCO3, Robbie (test code = 45823-7) 14 mmol/L 21-29 L Base Excess, Robbie (test code = -12.2 mmol/L -2-3 L 1927-3) Patient Temperature (test code = 36.0 8310-5) FIO2 (test code = 1819) 21 Lab Interpretation (test code = Abnormal 06757-7) [facility] Center[facility], [id number] 21:59:00 Test Item Value Reference Range Interpretation Comments PH VENOUS (BEAKER) (test code = 7.28 7.32-7.42 L 701) PCO2 VENOUS (BEAKER) (test code 29 mm Hg 41-51 L = 755) PO2 VENOUS (BEAKER) (test code = 129 mm Hg 25-40 H 702) O2 SATURATION VENOUS (BEAKER) 98.4 % 40.0-70.0 H (test code = 703) HCO3 VENOUS (BEAKER) (test code 14 mmol/L 21-29 L = 705) BASE EXCESS VENOUS (BEAKER) -12.2 mmol/L -2.0-3.0 L (test code = 704) PATIENT TEMPERATURE (BEAKER) 36.0 (test code = 1818) FIO2 (BEAKER) (test code = 1819) 21.0 [id number] 21:00:00 Test Item Value Reference Range Interpretation Comments Ferritin (test code = 150.49 ng/mL 5-275 2276-4) LATRELL (test code = LATRELL) Leather Belt Shaper ID - BS Lab Interpretation (test Normal code = 25673-6) [facility] CenterFERRITIN2020-10-26 21:00:00 Test Item Value Reference Range Interpretation Comments FERRITIN (BEAKER) (test code = 150.49 ng/mL 5.00-275.00 361) Leather Belt Shaper ID - BSVitamin D, 68-Rhxjubg3522-11-26 20:47:00 Test Item Value Reference Range Interpretation Comments Vitamin D 25-Hydroxy 8.1 ng/mL 6.6-49.9 (test code = 2764) LATRELL (test code = LATRELL) Effective 04/10/2017: Reference Range ChangeNew: 6.6-49.9 ng/mL Previous: 13.0-47.8 ng/mL Recommended Vitamin D Target Range: 30.0-40.0 ng/mLOperator ID - DB Lab Interpretation (test Normal code = 63588-1) [facility] CenterVITAMIN D, [id number] 20:47:00 Test Item Value Reference Range Interpretation Comments VITAMIN D 25-OH (BEAKER) (test code 8.1 ng/mL 6.6-49.9 = 2764) Effective 04/10/2017: Reference Range ChangeNew: 6.6-49.9 ng/mL Previous: 13.0-47.8 ng/mLRecommended Vitamin D Target Range: 30.0-40.0 ng/mLOperator ID - DBIron, TIBC, % sat. (without ferritin)2020-04-25 20:26:00 Test Item Value Reference Range Interpretation Comments Iron (test code = 2498-4) 54.0 ug/dL 40-160 TIBC (test code = 2500-7) 115 ug/dL 250-450 L Iron % Saturation (test code 47 % 20-55 = 2502-3) LATRELL (test code = LATRELL) Leather Belt Shaper ID - DB Lab Interpretation (test Abnormal code = 48853-5) [facility] CenterIRON, TIBC, % SAT. (WITHOUT FERRITIN)2020-04-25 20:26:00 Test Item Value Reference Range Interpretation Comments IRON (BEAKER) (test code = 547) 54.0 ug/dL 40.0-160.0 TOTAL IRON BINDING CAPACITY 115 ug/dL 250-450 L (BEAKER) (test code = 769) IRON % SATURATION (2) (BEAKER) 47 % 20-55 (test code = 2590) Leather Belt Shaper ID - DBPOCT-GLUCOSE [id number] 15:26:00 Test Item Value Reference Range Interpretation Comments POC-GLUCOSE METER 84 mg/dL 70-110 : TESTED A T [facility] 6720 (BEAKER) (test code = PARESH [place], 1538) [address]: Leather Belt Shaper/Techni demetrice ID = [id number] for ARNAUD KINSEY POCT-GLUCOSE [id number] 11:35:00 Test Item Value Reference Range Interpretation Comments POC-GLUCOSE METER 89 mg/dL 70-110 : TESTED A T [facility] 6720 (BEAKER) (test code = PARESH Garcia [facility], 1538) [address]: Leather Belt Shaper/Techni demetrice ID = [id number] for GAIL ZHOU TACROLIMUS [id number] 10:55:00 Test Item Value Reference Range Interpretation Comments TACROLIMUS BLOOD (BEAKER) (test 9.5 ng/mL 10.0-20.0 L code = 657) Leather Belt Shaper ID - MARCELLE FTACROLIMUS [id number] 10:55:00 Test Item Value Reference Range Interpretation Comments TACROLIMUS BLOOD (BEAKER) (test 11.4 ng/mL 10.0-20.0 code = 657) Leather Belt Shaper ID - MARCELLE FPOCT-GLUCOSE [id number] 07:51:00 Test Item Value Reference Range Interpretation Comments POC-GLUCOSE METER 110 mg/dL 70-110 : TESTED A T [facility] 6720 (BEAKER) (test code = PARESH Garcia [facility], 1538) [address]: Leather Belt Shaper/Techni demetrice ID = [id number] for GAIL ALVARENGA ECG 12 [id number] 06:38:19Interface, External Ris In - 04/25/2020 6:38 AM CDTVentricular Rate 66 BPMAtrial Rate 66 BPMP-R Interval 134 msQRS Duration 94 msQ-T Interval 442 msQTC Calculation(Bazett) 463 msP Pitman 68 degreesR Pitman 48 degreesT Pitman 226 degreesSinus rhythm with Premature atrial complexesNonspecific T wave abnormalityAbnormal ECGWhen compared with ECG of 24-APR-2020 21:00,Sinus rhythm has replaced Junctional rhythmNonspecific T wave abnormality has replaced inverted T waves in Anterior leadsNonspecific T wave abnormality, worse in Lateral leadsConfirmed by MD MELY, JOEL Camarillo ([id number]) on 04/25/2020 6:38:14 AM [facility] CenterFibrinogen2020-10-26 06:18:00 Test Item Value Reference Range Interpretation Comments Fibrinogen (test code = 3255-7) 282 mg/dl 225-434 Lab Interpretation (test code = Normal 97467-6) [facility] CenterFIBRINOGEN2020-10-26 06:18:00 Test Item Value Reference Range Interpretation Comments FIBRINOGEN LEVEL (BEAKER) (test 282 mg/dl 225-434 code = 658) Immunoglobulin G (IgG)2020-04-25 06:10:00 Test Item Value Reference Range Interpretation Comments IgG (test code = 2465-3) <673 683-8676 L LATRELL (test code = LATRELL) Leather Belt Shaper ID - PIANTONIO LOperator ID - PIAYA L Lab Interpretation (test Abnormal code = 55612-8) [facility] CenterImmunoglobulin M (IgM)2020-04-25 06:10:00 Test Item Value Reference Range Interpretation Comments IgM (test code = 2464-6) <5 22-293 L LATRELL (test code = LATRELL) Leather Belt Shaper ID - SERGIO Peresrator ID - PIAYA L Lab Interpretation (test Abnormal code = 54947-7) [facility] CenterImmunoglobulin A (IgA)2020-04-25 06:10:00 Test Item Value Reference Range Interpretation Comments IgA (test code = 2458-8) <5 63-484 L LARTELL (test code = LATRELL) Leather Belt Shaper ID - SERGIO Peresrator ID - PIAYA L Lab Interpretation (test Abnormal code = 96955-7) [facility] CenterIMMUNOGLOBULIN A (IGA)2020-04-25 06:10:00 Test Item Value Reference Range Interpretation Comments IMMUNOGLOBULIN A (IGA) (BEAKER) (test < mg/dL 63-484 L code = 639) Leather Belt Shaper ID - SERGIO Peresrator ID - PIAYA LIMMUNOGLOBULIN G (IGG)2020-04-25 06:10:00 Test Item Value Reference Range Interpretation Comments IMMUNOGLOBULIN G (IGG) (BEAKER) (test < mg/dL 540-1,822 L code = 427) Leather Belt Shaper ID - SERGIO Peresrator ID - PIAYA LIMMUNOGLOBULIN M (IGM)2020-04-25 06:10:00 Test Item Value Reference Range Interpretation Comments IMMUNOGLOBULIN M (IGM) (BEAKER) (test < mg/dL 22-293 L code = 638) Leather Belt Shaper ID - SERGIO LOperator ID - PIAYA LLactic acid, [id number] 06:09:00 Test Item Value Reference Range Interpretation Comments Lactate, Venous (test 1.08 mmol/L 0.5-2.2 code = 2872) LATRELL (test code = LATRELL) Leather Belt Shaper ID [place] HOWARDpecimen slightly icteric Lab Interpretation (test Normal code = 38081-5) [facility] CenterLACTIC ACID, [id number] 06:09:00 Test Item Value Reference Range Interpretation Comments LACTATE BLOOD VENOUS (2) (BEAKER) 1.08 mmol/L 0.50-2.20 (test code = 2872) Leather Belt Shaper ID [place] HOWARDpecimen slightly ictericB-TYPE NATRIURETIC FACTOR (BNP) 2020-04-25 04:54:00 Test Item Value Reference Range Interpretation Comments B-TYPE NATRIURETIC PEPTIDE (BEAKER) 699 pg/mL 0-100 H (test code = 700) Leather Belt Shaper ID [place] LBASIC METABOLIC [id number] 04:49:00 Test Item Value Reference Range Interpretation Comments SODIUM (BEAKER) 137 meq/L 136-145 (test code = 381) POTASSIUM (BEAKER) 4.8 meq/L 3.5-5.1 (test code = 379) CHLORIDE (BEAKER) 112 meq/L 98-107 H (test code = 382) CO2 (BEAKER) (test 12 meq/L 22-29 L code = 355) BLOOD UREA NITROGEN 90 mg/dL 7-21 H (BEAKER) (test code = 354) CREATININE (BEAKER) 5.02 mg/dL 0.57-1.25 H (test code = 358) GLUCOSE RANDOM 127 mg/dL 70-105 H (BEAKER) (test code = 652) CALCIUM (BEAKER) 7.6 mg/dL 8.4-10.2 L (test code = 697) EGFR (BEAKER) (test 12 mL/min/1.73 ESTIMA ROBERTA GFR IS code = 1092) sq m NOT ACCURATE CREATININE CLEARANCE IN PREDICTING GLOMERULAR FILTRATION RATE . ESTIMATED GFR I S NOT APPLICABLE FOR DIALYSIS PATIEN TS. Leather Belt Shaper ID [place] HOWARDpecimen slightly [id number] 04:45:00 Test Item Value Reference Range Interpretation Comments Lipase (test code = 222 U/L 8-78 H 3040-3) LATRELL (test code = LATRELL) Leather Belt Shaper ID - PIAYA LSpecimen slightly icteric Lab Interpretation (test Abnormal code = 35776-4) [facility] CenterMAGNESIUM2020-10-26 04:45:00 Test Item Value Reference Range Interpretation Comments MAGNESIUM (BEAKER) (test code = 2.2 mg/dL 1.6-2.6 627) Leather Belt Shaper ID - SERGIO [id number] 04:45:00 Test Item Value Reference Range Interpretation Comments PHOSPHORUS (BEAKER) (test code = 5.4 mg/dL 2.3-4.7 H 604) Leather Belt Shaper ID - SERGIO LHEPATIC FUNCTION [id number] 04:45:00 Test Item Value Reference Range Interpretation Comments TOTAL PROTEIN (BEAKER) (test code = 3.9 gm/dL 6.0-8.3 L 770) ALBUMIN (BEAKER) (test code = 1145) 2.7 g/dL 3.5-5.0 L BILIRUBIN TOTAL (BEAKER) (test code 2.6 mg/dL 0.2-1.2 H = 377) BILIRUBIN DIRECT (BEAKER) (test 1.7 mg/dL 0.1-0.5 H code = 706) ALKALINE PHOSPHATASE (BEAKER) (test 171 U/L 40-150 H code = 346) AST (SGOT) (BEAKER) (test code = 17 U/L 5-34 353) ALT (SGPT) (BEAKER) (test code = 15 U/L 6-55 347) Leather Belt Shaper ID - SERGIO HOWARDpecimen slightly [id number] 04:45:00 Test Item Value Reference Range Interpretation Comments LIPASE (BEAKER) (test code = 749) 222 U/L 8-78 H Leather Belt Shaper ID - SERGIO HOWARDpecimen slightly ictericPROTHROMBIN TIME/[id number] 04:35:00 Test Item Value Reference Range Interpretation Comments PROTIME (BEAKER) (test code = 19.6 seconds 11.9-14.2 H 759) INR (BEAKER) (test code = 370) 1.71 <=5.90 Effective 11/26/2018: PT Reference Range ChangeNew: 11.9-14.2 Previous: 11.7- 14.7RECOMMENDED COUMADIN/WARFARIN INR THERAPY RANGESSTANDARD DOSE: 2.0-3.0 Includes: PROPHYLAXIS for venous thrombosis, systemic embolization; TREATMENT for venous thrombosis and/or pulmonary embolus.HIGH RISK: Target INR is2.5-3.5 for patients wiht mechanical heart valves.CBC W/PLT COUNT & AUTO [id number] 04:29:00 Test Item Value Reference Range Interpretation Comments WHITE BLOOD CELL COUNT (BEAKER) 3.1 K/ L 3.5-10.5 L (test code = 775) RED BLOOD CELL COUNT (BEAKER) 2.20 M/ L 4.63-6.08 L (test code = 761) HEMOGLOBIN (BEAKER) (test code = 7.2 GM/DL 13.7-17.5 L 410) HEMATOCRIT (BEAKER) (test code = 22.6 % 40.1-51.0 L 411) MEAN CORPUSCULAR VOLUME (BEAKER) 102.7 fL 79.0-92.2 H (test code = 753) MEAN CORPUSCULAR HEMOGLOBIN 32.7 pg 25.7-32.2 H (BEAKER) (test code = 751) MEAN CORPUSCULAR HEMOGLOBIN CONC 31.9 GM/DL 32.3-36.5 L (BEAKER) (test code = 752) RED CELL DISTRIBUTION WIDTH 15.7 % 11.6-14.4 H (BEAKER) (test code = 412) PLATELET COUNT (BEAKER) (test code 41 K/CU MM 150-450 L = 756) MEAN PLATELET VOLUME (BEAKER) 9.4 fL 9.4-12.4 (test code = 754) NUCLEATED RED BLOOD CELLS (BEAKER) 0 /100 WBC 0-0 (test code = 413) NEUTROPHILS RELATIVE PERCENT 75 % (BEAKER) (test code = 429) LYMPHOCYTES RELATIVE PERCENT 15 % (BEAKER) (test code = 430) MONOCYTES RELATIVE PERCENT 7 % (BEAKER) (test code = 431) EOSINOPHILS RELATIVE PERCENT 2 % (BEAKER) (test code = 432) BASOPHILS RELATIVE PERCENT 0 % (BEAKER) (test code = 437) NEUTROPHILS ABSOLUTE COUNT 2.32 K/ L 1.78-5.38 (BEAKER) (test code = 670) LYMPHOCYTES ABSOLUTE COUNT 0.47 K/ L 1.32-3.57 L (BEAKER) (test code = 414) MONOCYTES ABSOLUTE COUNT (BEAKER) 0.23 K/ L 0.30-0.82 L (test code = 415) EOSINOPHILS ABSOLUTE COUNT 0.05 K/ L 0.04-0.54 (BEAKER) (test code = 416) BASOPHILS ABSOLUTE COUNT (BEAKER) 0.01 K/ L 0.01-0.08 (test code = 417) IMMATURE GRANULOCYTES-RELATIVE 1 % 0-1 PERCENT (BEAKER) (test code = 2801) SARS-CoV2/RT-PCR (Symptomatic ONLY)2020-04-25 04:12:00 Test Item Value Reference Range Interpretation Comments SARS-COV2/RT-PCR Negative Not Detected, (test code = Negative, See 23904-9) external report for linked test SARS-COV-2 [facility] PERFORMING LAB (test code = 15989-9) LATRELL (test code = Negative results do not LATRELL) preclude SARS-CoV-2 infection and should not be used as [...] of the Act. Fact Sheet for Healthcare Providers:https://www.Sumomi.YupiCall/Documents/Xper t%20Xpress%20SARS%20CoV- 2/Fact%20Sheets/302-0532 %47OMPV-IZP-2%20HEALTHCA RE%20PROVIDERS%20FACT%20 SHEET.pdf Fact Sheet for Healthcare Patients:https://www.[employer]/Documents/Xpert %20Xpress%20SARS%20CoV-2 /Fact%20Sheets/302-3801% 25HFEX-ZSG-6%20PATIENT%2 0FACT%20SHEET.pdf Performing Laboratory:[facility] [place] [address] [facility] ([facility])2020-04-25 04:12:00 Test Item Value Reference Range Interpretation Comments SARS-COV2/RT-PCR (test code Negative Not Detected, Negative, = 7464909) See external report for linked test SARS-COV-2 PERFORMING LAB [facility] (test code = 3852466) Negative results do not preclude SARS-CoV-2 infection and should not be used as the sole basis for patient management decisions. Negative results must be combined with clinical observations, patient history, and epidemiological information. A false negative result may occur if a specimen is improperly collected, transported or handled.The limit of detection for this assay is 250 copies/mL.This SARS CoV-2 test is a rapid, real-time RT-PCR test intended for the qualitative detection of nucleic acid from SARS-CoV-2 in a nasopharyngeal swab specimen collected from individuals suspected of COVID-19 by their healthcare provider.This test has not been Food and Drug [...] is revoked under Section 564(g) of the Act.Fact Sheet for Healthcare Pro viders:https://www.Wisr.YupiCall/Documents/Xpert%20Xpress%20SARS%20CoV-2/Fact%20Sh eets/3023802%21XTRT-HLY-8%20HEALTHCARE%20PROVIDERS%20FACT%20SHEET.pdfFact Sheet for Healthcare Patients:https://www.[employer]/Documents/Xpert%20Xpress%20SARS%20CoV-2/Fact%20Sheets/302-3801%20SARS-COV -2%20PATIENT%20FACT%20SHEET.pdfPerforming Laboratory:[facility], [place] [address]HYJ, ABDOMEN/KUB, 1 VIEW [id number] 01:28:00Referring: Dr. Yary Eastman/ [place] for exam:->abdominal pain [facility] 1955 Sex: MFINAL REPORT CLINICAL HISTORY: Abdominal pain COMPARISON: 04/22/2019 FINDINGS: Two supine views of the abdomen are submitted. The abdominal bowel gas pattern is nonspecific but grossly unobstructed. There is no focus of gas dilated large or small bowel. Centralization of the mid small bowel loops suggests underlying ascites. A TIPS shunt overlies the right upperquadrant. There is no acute bony abnormality. Please note that a supine examination is insensitive in the detection of free intraperitoneal air. Signed: Karissa Romero MDReport Verified Date/Time: 04/25/2020 01:28:39 XR abdomen / KUB 1 [id number] 01:28:00Interface, External Ris In - 04/25/2020 1:30 AM CDTFINAL REPORT CLINICAL HISTORY: Abdominal pain COMPARISON: 04/22/2019 FINDINGS: Two supine views of the abdomen are submitted.The abdominal bowel gas pattern is nonspecific but grossly unobstructed. There is no focus of gas dil ated large or small bowel. Centralization of the mid small bowel loops suggests underlying ascites.A TIPS shunt overlies the right upper quadrant. There is no acute bony abnormality. Please note thata supine examination is insensitive in the detection of free intraperitoneal air. Signed: Karissa Romeroeport Verified Date/Time: 04/25/2020 01:28:39 [facility] OaklandU/[facility], RENAL, [id number] 01:26:00Referring: Dr. Yary Eastman/ Alexandra include bladder as wellReason for exam:->NOHEMI on CKD [facility] 1955 Sex: MFINAL REPORT Renal ultrasound dated 04/25/2020 CLINICAL HISTORY: Acute on chronic renal dysfunction COMPARISON: 02/23/2020 Comment: Real-time transabdominal renal ultrasound was performed. Right kidney measures 6.9 x 3.8 x 4.1 cm. Left kidney measures 8.1 x 4.4 x 3.7 cm. Right renal cortex measures 1.2 cm. Left renal cortex measures 1.2 cm. Renal parenchymal echogenicity: Elevated. No hydronephrosis, nephrolithiasis or solid mass is seen. No cyst is identified on either kidney. Doppler ultrasound demonstrates a patent main renal artery and vein bilaterally. The bladder is unremarkable. Nodular hepatic margin consistent with cirrhosis. Moderate to large volume ascites. Impression: Elevated renal parenchymal echogenicity, a nonspecific finding suggestingmedical renal disease. Cirrhosis and ascites. Signed: Karissa Romero MDReport Verified Date/Time: 04/25/2020 01:26:38 US renal complete 2020-04-25 01:26:00Interface, External Ris In - 04/25/2020 1:28 AM CDTFINAL REPORT Renal ultrasound dated 04/25/2020 CLINICAL HISTORY: Acute on chronic renal dysfunction COMPARISON: 02/23/2020 Comment: Real-time transabdominal renal ultrasound was performed. Right kidney measures 6.9 x 3.8 x 4.1 cm. Left kidney measures 8.1 x 4.4 x 3.7 cm. Right renal cortex measures 1.2 cm. Left renal cortex measures 1.2 cm. Renal parenchymal echogenicity: Elevated. No hydronephrosis, nephrolithiasis or solid mass is seen. No cyst is identified on either kidney. Doppler ultrasound demonstrates a patent main renal artery and vein bilaterally. The bladder is unremarkable. Nodular hepatic margin consistent with cirrhosis. Moderate to large volume ascites. Impression: Elevated renal parenchymal echogenicity, a nonspecific finding suggesting medical renal disease. Cirrhosis and ascites. Signed: Karissa Romero MDReport Verified Date/Time: 04/25/2020 01:26:38 [facility] OaklandPOCT-GLUCOSE [id number] 00:44:00 Test Item Value Reference Range Interpretation Comments POC-GLUCOSE METER 177 mg/dL 70-110 H : TESTED A T [facility] 6720 ([employer]ital[employer]) (test code = TeacherTubeOR Tran[employer] [facility], 1538) [address]: Leather Belt Shaper/Techni demetrice ID = [id number] for CE BALLOS, TAN POCT-GLUCOSE [id number] 23:52:00 Test Item Value Reference Range Interpretation Comments POC-GLUCOSE METER 99 mg/dL 70-110 : TESTED A T [facility] 6720 (BEAKER) (test code = [facility] TranSiC [facility], 1538) [address]: Leather Belt Shaper/Techni demetrice ID = [id number] for CEBA LLOS, TAN Protein, random [id number] 22:02:00 Test Item Value Reference Range Interpretation Comments Protein, Urine (test code = <7 0-14 2888-6) LATRELL (test code = LATRELL) Leather Belt Shaper ID - DB Lab Interpretation (test Normal code = 03656-3) [facility] CenterPROTEIN, RANDOM [id number] 22:02:00 Test Item Value Reference Range Interpretation Comments PROTEIN, URINE (BEAKER) (test code = < mg/dL 0-14 1569) Leather Belt Shaper ID - DBChloride, random [id number] 22:01:00 Test Item Value Reference Range Interpretation Comments ChlorideUr (test 67 meq/L code = 90691-5) LATRELL (test code = Reference Range: No LATRELL) NormalsOperator ID - DB [facility] CenterCreatinine, random [id number] 22:01:00 Test Item Value Reference Range Interpretation Comments Creatinine, Ur 85.6 mg/dL (test code = 2161-8) LATRELL (test code = Reference Range: No LATRELL) NormalsOperator ID - DB [facility] CenterPotassium, random [id number] 22:01:00 Test Item Value Reference Range Interpretation Comments Potassium Urine 21.7 meq/L (test code = 2828-2) LATRELL (test code = Reference Range: No LATRELL) NormalsOperator ID - [facility] [id number] 22:01:00 Test Item Value Reference Range Interpretation Comments Sodium Urine (test 53 meq/L code = 2955-3) LATRELL (test code = Reference Range: No LATRELL) NormalsOperator ID - DB [facility] Nitrogen, random [id number] 22:01:00 Test Item Value Reference Range Interpretation Comments Urea Nitrogen, Ur 367 mg/dL (test code = 3095-7) LATRELL (test code = Reference Range: No LATRELL) NormalsOperator ID - DB [facility] CenterUREA NITROGEN, RANDOM [id number] 22:01:00 Test Item Value Reference Range Interpretation Comments UREA NITROGEN URINE (BEAKER) (test 367 mg/dL code = 538) Reference Range: No NormalsOperator ID - DBCHLORIDE, RANDOM [id number] 22:01:00 Test Item Value Reference Range Interpretation Comments CHLORIDE URINE (BEAKER) (test code = 67 meq/L 682) Reference Range: No NormalsOperator ID - DBCREATININE, RANDOM [id number] 22:01:00 Test Item Value Reference Range Interpretation Comments CREATININE URINE (BEAKER) (test 85.6 mg/dL code = 375) Reference Range: No NormalsOperator ID - DBPOTASSIUM, RANDOM [id number] 22:01:00 Test Item Value Reference Range Interpretation Comments POTASSIUM URINE (BEAKER) (test 21.7 meq/L code = 195) Reference Range: No NormalsOperator ID - DBSODIUM, RANDOM [id number] 22:01:00 Test Item Value Reference Range Interpretation Comments SODIUM URINE (BEAKER) (test code = 53 meq/L 243) Reference Range: No NormalsOperator ID - DBUrinalysis w/Microscopic + Reflex to [id number] 21:51:00 Test Item Value Reference Range Interpretation Comments Color, UA (test code = Yellow 5778-6) Clarity, UA (test code Clear = 5767-9) Specific Rush, UA 1.009 1.001-1.035 (test code = 5811-5) pH, UA (test code = 5.0 5.0-8.0 5803-2) Protein, UA (test code Negative Negative = 70598-0) Glucose, UA (test code Negative Negative = 365) Ketones, UA (test code Negative Negative = 2514-8) Bilirubin, UA (test Negative Negative code = 91716-2) Blood, UA (test code = Negative Negative 03524-1) Nitrite, UA (test code Negative Negative = 5802-4) Leukocytes, UA (test Negative Negative code = 5799-2) Urobilinogen, UA (test 0.2 mg/dL 0.2-1 code = 86348-7) RBC, UA (test code = <1 /HPF 42150-0) WBC, UA (test code = 1 /HPF 5821-4) Bacteria, UA (test code Rare = 10627-0) Mucus (test code = Rare 8247-9) Hyaline Casts, UA (test 17 /LPF code = 18247-9) Specimen Source (test code = 2795) LATRELL (test code = LATRELL) Leather Belt Shaper ID - [auto]Leather Belt Shaper ID - tech [facility] CenterURINALYSIS W/ REFLEX URINE [id number] 21:51:00 Test Item Value Reference Range Interpretation Comments COLOR (BEAKER) (test code = 470) Yellow CLARITY (BEAKER) (test code = 469) Clear SPECIFIC GRAVITY UA (BEAKER) (test 1.009 1.001-1.035 code = 468) PH UA (BEAKER) (test code = 467) 5.0 5.0-8.0 PROTEIN UA (BEAKER) (test code = Negative Negative 464) GLUCOSE UA (BEAKER) (test code = Negative Negative 365) KETONES UA (BEAKER) (test code = Negative Negative 371) BILIRUBIN UA (BEAKER) (test code = Negative Negative 462) BLOOD UA (BEAKER) (test code = 461) Negative Negative NITRITE UA (BEAKER) (test code = Negative Negative 465) LEUKOCYTE ESTERASE UA (BEAKER) Negative Negative (test code = 466) UROBILINOGEN UA (BEAKER) (test code 0.2 mg/dL 0.2-1.0 = 463) RBC UA (BEAKER) (test code = 519) < /HPF WBC UA (BEAKER) (test code = 520) 1 /HPF BACTERIA (BEAKER) (test code = 517) Rare MUCUS (BEAKER) (test code = 1574) Rare HYALINE CASTS (BEAKER) (test code = 17 /LPF 514) SOURCE(BEAKER) (test code = 2795) Leather Belt Shaper ID - [auto]Leather Belt Shaper ID - techLACTIC ACID, [id number] 21:32:00 Test Item Value Reference Range Interpretation Comments LACTATE BLOOD VENOUS (2) (BEAKER) 1.05 mmol/L 0.50-2.20 (test code = 2872) Leather Belt Shaper ID - DBSpecimen slightly ictericT, [id number] 20:07:00 Test Item Value Reference Range Interpretation Comments Free T4 (test code = 3024-7) 0.55 ng/dL 0.7-1.48 L LATRELL (test code = LATRELL) Leather Belt Shaper ID - DB Lab Interpretation (test Abnormal code = 12827-4) [facility] CenterT4, [id number] 20:07:00 Test Item Value Reference Range Interpretation Comments FREE T4 (BEAKER) (test code = 655) 0.55 ng/dL 0.70-1.48 L Leather Belt Shaper ID - VUMqowmvvkxukim2983-15-23 20:02:00 Test Item Value Reference Range Interpretation Comments Procalcitonin (test code = 5.20 ng/mL <0.05 H 27283-0) LATRELL (test code = LATRELL) SEPSIS RISK (ng/mL)Low: 0.05-0.50Intermedi ate: 0.51-2.00High: >=2.01 Lab Interpretation (test Abnormal code = 35001-2) [facility] CenterPROCALCITONIN2020-10-25 20:02:00 Test Item Value Reference Range Interpretation Comments PROCALCITONIN (BEAKER) (test code 5.20 ng/mL <0.05 H = 3036) SEPSIS RISK (ng/mL)Low: 0.05-0.50Intermediate: 0.51-2.00High: >=2.01Troponin I (not available at [facility])2020-04-24 19:34:00 Test Item Value Reference Range Interpretation Comments Troponin I (test code = <0.01 0-0.03 15708-3) LATRELL (test code = LATRELL) Troponin I (TnI) levels must be interpreted [...] failure, acidosis, acute neurological disease, and persistent tachyarrhythmia.Opera tor ID - DB Lab Interpretation (test Normal code = 11588-4) [facility] CenterTROPONIN [id number] 19:34:00 Test Item Value Reference Range Interpretation Comments TROPONIN I (BEAKER) (test code = 397) < ng/mL 0.00-0.03 Troponin I (TnI) levels [...] failure, acidosis, acute neurological disease, and persistent tachyarrhythmia.Leather Belt Shaper ID - DBTSH/Free T4 If Indicated 2020-04-24 19:33:00 Test Item Value Reference Range Interpretation Comments TSH (test code = 54393-0) 5.602 0.350- 4.940 uIU/mL H LATRELL (test code = LATRELL) Leather Belt Shaper ID - DB Lab Interpretation (test Abnormal code = 67088-2) [facility] CenterTSH/FREE T4 IF [id number] 19:33:00 Test Item Value Reference Range Interpretation Comments THYROID STIMULATING HORMONE 5.602 uIU/mL 0.350-4.940 H (BEAKER) (test code = 772) Leather Belt Shaper ID - DBRAD, CHEST, 2 [id number] 19:10:00Referring: Dr. Yary Eastman/ [place] for exam:->[facility] : 1955 Sex: MFINAL REPORT RAD, CHEST, 2 VIEWS CLINICAL HISTORY: FATIGUE TECHNIQUE: 2 views of the chest COMPARISON: April 06, 2020 IMPRESSION: Development of interstitial opacities with peripheral Josr B lines suggesting mild pulmonary edema but pneumonitis should be excluded clinically. Blunted costophrenic angles may represent trace effusions, pleural thickening or atelectasis. No pneumothorax. No focal lung consolidation. Cardiomediastinal silhouette is stable. Stable osseous structures. Signed: Jed Guadarrama MDReport Verified Date/Time: 04/24/2020 19:10:21 XR chest 2 [id number] 19:10:00Interface, External Ris In - 04/24/2020 7:13 PM CDTFINAL REPORT RAD, CHEST, 2 VIEWS CLINICAL HISTORY: FATIGUE TECHNIQUE: 2 views of the chest COMPARISON: April 06, 2020 IMPRESSION: Development of interstitial opacities with peripheral Josr B lines suggesting mild pulmonary edema but pneumonitis should be excluded clinically. Blunted costophrenic angles may represent trace effusions, pleural thickening or atelectasis. No pneumothorax. No focal lung consolidation. Cardiomediastinal silhouette is stable. Stable osseous structures. Signed: Jed Guadarrama MDReport Verified Date/Time: 04/24/2020 19:10:21 [facility]inoB-TYPE NATRIURETIC FACTOR (BNP)2020-04-24 19:09:00 Test Item Value Reference Range Interpretation Comments B-TYPE NATRIURETIC PEPTIDE (BEAKER) 619 pg/mL 0-100 H (test code = 700) Leather Belt Shaper ID - DBComprehensive metabolic [id number] 18:53:00 Test Item Value Reference Range Interpretation Comments Protein, Total (test 3.9 6.0- 8.3 gm/dL L code = 2885-2) Albumin (test code = 2.7 g/dL 3.5-5 L 23981-4) Alkaline Phosphatase 196 U/L 40-150 H (test code = 6768-6) Total Bilirubin (test 2.5 mg/dL 0.2-1.2 H code = 1975-2) Sodium (test code = 136 meq/L 565-736 8783-2) Potassium (test code 5.4 meq/L 3.5-5.1 H = 2823-3) Chloride (test code = 109 meq/L 98-107 H 2075-0) CO2 (test code = 12 meq/L 22-29 L 2028-9) BUN (test code = 86 mg/dL 7-21 H 3094-0) Creatinine (test code 5.06 mg/dL 0.57-1.25 H = 2160-0) Glucose (test code = 105 mg/dL 70-105 2345-7) Calcium (test code = 7.8 mg/dL 8.4-10.2 L 11628-4) AST (test code = 22 U/L 5-34 1920-8) ALT (test code = 17 U/L 6-55 1742-6) EGFR (test code = 12 mL/min/1.73 [place] [address]-5) NOT ACCURATE CREATININE CLEARANCE IN PREDICTING GLOMERULAR FILTRATION RATE . ESTIMATED GFR I S NOT APPLICABLE FOR DIALYSIS PATIENTS. LATRELL (test code = LATRELL) Leather Belt Shaper ID - DBSpecimen slightly icteric Lab Interpretation Abnormal (test code = 89966-4) [facility] CenterCOMPREHENSIVE METABOLIC [id number] 18:53:00 Test Item Value Reference Range Interpretation Comments TOTAL PROTEIN 3.9 gm/dL 6.0-8.3 L (BEAKER) (test code = 770) ALBUMIN (BEAKER) 2.7 g/dL 3.5-5.0 L (test code = 1145) ALKALINE PHOSPHATASE 196 U/L 40-150 H (BEAKER) (test code = 346) BILIRUBIN TOTAL 2.5 mg/dL 0.2-1.2 H (BEAKER) (test code = 377) SODIUM (BEAKER) (test 136 meq/L 136-145 code = 381) POTASSIUM (BEAKER) 5.4 meq/L 3.5-5.1 H (test code = 379) CHLORIDE (BEAKER) 109 meq/L 98-107 H (test code = 382) CO2 (BEAKER) (test 12 meq/L 22-29 L code = 355) BLOOD UREA NITROGEN 86 mg/dL 7-21 H (BEAKER) (test code = 354) CREATININE (BEAKER) 5.06 mg/dL 0.57-1.25 H (test code = 358) GLUCOSE RANDOM 105 mg/dL 70-105 (BEAKER) (test code = 652) CALCIUM (BEAKER) 7.8 mg/dL 8.4-10.2 L (test code = 697) AST (SGOT) (BEAKER) 22 U/L 5-34 (test code = 353) ALT (SGPT) (BEAKER) 17 U/L 6-55 (test code = 347) EGFR (BEAKER) (test 12 mL/min/1.73 ESTIMA ROBERTA GFR IS code = 1092) sq m NOT ACCURATE CREATININE CLEARANCE IN PREDICTING GLOMERULAR FILTRATION RATE . ESTIMATED GFR I S NOT APPLICABLE FOR DIALYSIS PATIEN TS. Leather Belt Shaper ID - DBSpecimen slightly [id number] 18:49:00 Test Item Value Reference Range Interpretation Comments PTT (test code = 30187-6) 40.9 22.5- 36.0 seconds H Lab Interpretation (test code = Abnormal 49060-1) [facility] CenterAPTT2020-10-25 18:49:00 Test Item Value Reference Range Interpretation Comments PARTIAL THROMBOPLASTIN TIME 40.9 seconds 22.5-36.0 H (BEAKER) (test code = 760) PROTHROMBIN TIME/[id number] 18:48:00 Test Item Value Reference Range Interpretation Comments PROTIME (BEAKER) (test code = 19.3 seconds 11.9-14.2 H 759) INR (BEAKER) (test code = 370) 1.68 <=5.90 Effective 11/26/2018: PT Reference Range ChangeNew: 11.9-14.2 Previous: 11.7- 14.7RECOMMENDED COUMADIN/WARFARIN INR THERAPY RANGESSTANDARD DOSE: 2.0-3.0 Includes: PROPHYLAXIS for venous thrombosis, systemic embolization; TREATMENT for venous thrombosis and/or pulmonary embolus.HIGH RISK: Target INR is2.5-3.5 for patients wiht mechanical heart valves.LACTIC ACID, [id number] 18:47:00 Test Item Value Reference Range Interpretation Comments LACTATE BLOOD VENOUS (2) (BEAKER) 1.10 mmol/L 0.50-2.20 (test code = 2872) Leather Belt Shaper ID - DBSpecimen slightly ictericBLOOD GAS, [id number] 18:42:00 Test Item Value Reference Range Interpretation Comments PH VENOUS (BEAKER) (test code = 7.28 7.32-7.42 L 701) PCO2 VENOUS (BEAKER) (test code 30 mm Hg 41-51 L = 755) PO2 VENOUS (BEAKER) (test code = 38 mm Hg 25-40 702) O2 SATURATION VENOUS (BEAKER) 65.8 % 40.0-70.0 (test code = 703) HCO3 VENOUS (BEAKER) (test code 14 mmol/L 21-29 L = 705) BASE EXCESS VENOUS (BEAKER) -11.8 mmol/L -2.0-3.0 L (test code = 704) PATIENT TEMPERATURE (BEAKER) 37.0 (test code = 1818) FIO2 (BEAKER) (test code = 1819) 21.0 CBC W/PLT COUNT & AUTO [id number] 18:39:00 Test Item Value Reference Range Interpretation Comments WHITE BLOOD CELL COUNT (BEAKER) 4.1 K/ L 3.5-10.5 (test code = 775) RED BLOOD CELL COUNT (BEAKER) 2.37 M/ L 4.63-6.08 L (test code = 761) HEMOGLOBIN (BEAKER) (test code = 7.7 GM/DL 13.7-17.5 L 410) HEMATOCRIT (BEAKER) (test code = 23.9 % 40.1-51.0 L 411) MEAN CORPUSCULAR VOLUME (BEAKER) 100.8 fL 79.0-92.2 H (test code = 753) MEAN CORPUSCULAR HEMOGLOBIN 32.5 pg 25.7-32.2 H (BEAKER) (test code = 751) MEAN CORPUSCULAR HEMOGLOBIN CONC 32.2 GM/DL 32.3-36.5 L (BEAKER) (test code = 752) RED CELL DISTRIBUTION WIDTH 15.9 % 11.6-14.4 H (BEAKER) (test code = 412) PLATELET COUNT (BEAKER) (test code 56 K/CU MM 150-450 L = 756) MEAN PLATELET VOLUME (BEAKER) 10.5 fL 9.4-12.4 (test code = 754) NUCLEATED RED BLOOD CELLS (BEAKER) 0 /100 WBC 0-0 (test code = 413) NEUTROPHILS RELATIVE PERCENT 74 % (BEAKER) (test code = 429) LYMPHOCYTES RELATIVE PERCENT 17 % (BEAKER) (test code = 430) MONOCYTES RELATIVE PERCENT 7 % (BEAKER) (test code = 431) EOSINOPHILS RELATIVE PERCENT 2 % (BEAKER) (test code = 432) BASOPHILS RELATIVE PERCENT 0 % (BEAKER) (test code = 437) NEUTROPHILS ABSOLUTE COUNT 3.02 K/ L 1.78-5.38 (BEAKER) (test code = 670) LYMPHOCYTES ABSOLUTE COUNT 0.68 K/ L 1.32-3.57 L (BEAKER) (test code = 414) MONOCYTES ABSOLUTE COUNT (BEAKER) 0.28 K/ L 0.30-0.82 L (test code = 415) EOSINOPHILS ABSOLUTE COUNT 0.06 K/ L 0.04-0.54 (BEAKER) (test code = 416) BASOPHILS ABSOLUTE COUNT (BEAKER) 0.01 K/ L 0.01-0.08 (test code = 417) IMMATURE GRANULOCYTES-RELATIVE 1 % 0-1 PERCENT (BEAKER) (test code = 2801) ECG/EKG [id number] 17:38:57Vahid Aguiar MD 04/24/2020 9:30 PMECG/EKG Interpretation Date/Time: 04/24/2020 9:30 PMPerformed by: Vahid Aguiar MDAuthorized by: Vahid Aguiar MD Comments: Sinus rhythm with PACs, rate66, [place] 134, QRS 84, QTc 463, normal axis, no significant ST elevation, ST depressions, T wave inversions. No QRS prolongation or peak T waves.[facility] CenterEKG-[id number] 00:00:00Ordered by an unspecified provider.[facility] CenterTreadmill tolerance(Non- Nuclear Treadmill)2020-04-21 15:31:30Interface, External Ris In - 04/21/2020 3:31 PM CDTProtocol Name REGADENOSON Time In Exercise Phase00:01:00 Max. Systolic BP 114 mmHgMax Diastolic BP 53 mmHgMax Heart Rate 90 BPMMax Predicted Heart Rate 158 BPMReason For Termination Predetermined end point Reason for Test pre-transplant liver evaluation Target HR Formula (220 - Age)*100% Arrhythmias none Resting ECG Normal sinus rhythm ST Changes No Significant Changes Overall Impression Indeterminate due to pharmacological stress Chest Pain none HR Response To Exercise BP Response To Exercise LASIXlactuloseConfirmed by fellow Ricky Kwong ([id number]) on 04/19/2020 1:29:04 PMConfirmed by MD Darin, Bella ([id number]) on 04/21/2020 3:31:05 [facility]inoMYOCARD IMAGING, MULTI, PHARM, [id number] 15:55:00Referring: Dr. Yary Eastman/ Josee Reason for Exam - Click Yes and Enter Reason Below->YesUnlisted Reason for Exam->liver transplant evaluation [facility] : 1955 Sex: MFINAL REPORT PROCEDURE: Rest/Stress MYOCARDIAL PERFUSION SPECT with regadenoson\\XA9\\ CPT CODE: 71258 INDICATION: Preoperative evaluation for liver transplant PROTOCOL: 10.4 mCi of Tc-99m sestamibi was injected iv at rest, and SPECT (tomographic) images were obtained. Also, 28.8 mCi of Tc-99m sestamibi was injected iv at expected peak pharmacologic effect, and gated SPECT images were obtained. PRELIMINARY STRESS TEST DATA FROM NONINVASIVE CARDIOLOGY: Pharmacologic stress was by 10-second iv infusion of 0.4 mg of regadenoson. Radiotracer was injected 30 seconds after start of stress. Heart rate was 85 beats/min at rest and 90 beats/min (56 % of MPHR) at tracer injection. BP was 117/57 mmHg at rest and 114/53 mmHg at tracer injection. Stress was stopped for predetermined endpoint. The patient experienced no symptoms; treatment was not required. Preliminary ECG evaluation revealed sinus rhythm at rest and no ischemic changes with stress. (Final ECG interpretation and other stress and monitoring data are reported separately by Cardiology.) IMAGING FINDINGS: Study quality is good. Images obtained after rest and stress injectionsshow normal LV activity. LV and RV volumes appear normal. Gated images obtained at rest after stressshow normal LV wall motion and thickening. QGS LVEF is 55%. IMPRESSION: 1. Normal study. 2. Appropriate pharmacologic stress. 3. Normal myocardial perfusion. 4. Normal resting LV function. 5. Normal extracardiac tracer distribution. 6. No prior study. Signed: Geoff Edwards MDReport Verified Date/Time: 04/19/2020 15:55:39 Reading Location: [facility] 3rd Flr [id number] Nuc Med Reading Room NM myocardial perfusion SPECT, pharm(Lexiscan)2020-04-19 15:55:00Interface, External Ris In - 04/19/2020 3:57 PM CDTFINAL REPORT PROCEDURE: Rest/Stress MYOCARDIAL PERFUSION SPECT with regadenoson\\XA9\\ CPT CODE: 38268 INDICATION: Preoperative evaluation for liver transplant PROTOCOL: 10.4 mCi of Tc-99m sestamibi was injected iv at rest, and SPECT (tomographic) images were obtained. Also, 28.8 mCi of Tc-99m sestamibi was injected iv at expected peak pharmacologic effect, and gated SPECT images were obtained. PRELIMINARY STRESS TEST DATA FROM NONINVASIVE CARDIOLOGY: Pharmacologic stress was by 10-second iv infusion of 0.4 mg of regadenoson. Radiotracer was injected 30 seconds after start of stress. Heart rate was 85 beats/min at rest and 90 beats/min (56 % of MPHR) at tracer injection. BP was 117/57 mmHg at rest and 114/53 mmHg at tracer injection. Stress was stopped for predetermined endpoint. The patient experienced no symptoms; treatment was not required. Preliminary ECG evaluation revealed sinus rhythm at rest and no ischemic changes with stress. (Final ECG interpretation and other stress and monitoring data are reported separately by Cardiology.) IMAGING FINDINGS: Study quality is good. Images obtained after rest and stress injections show normal LV activity. LV and RV volumes appear normal. Gated images obtained at rest after stress show normal LV wall motion and thickening. QGS LVEF is 55%. IMPRESSION: 1. Normal study. 2. Appropriate pharmacologic stress. 3. Normal myocardial perfusion.4. Normal resting LV function. 5. Normal extracardiac tracer distribution. 6. No prior study. Signed: Geoff dEwards MDReport Verified Date/Time: 04/19/2020 15:55:39 Reading Location: [place] [id number] Nuc Med Reading Room [facility]inoAlpha-1 antitrypsin Mutation [id number] 09:00:00 Test Item Value Reference Interpretation Comments Range A1 Antitrypsin SEE BELOW RESULT: NO MU TATION Mut (test code = DETECTED In terpretation: 3466463) DNA testing ind icates that this indiv idual is negative forthe PI*Z and PI*S alleles in the zscbd-3-hushrso psin (PI) gene (genotypePI*M/P I*M). This negative r esult does not rule o ut the presence of othermutations within the PI gene or other causes of xrpwb-5-snuzxcv psindefic iency. Therefor e, these results should be interpreted in the context ofthe individual's cl inical presentation, a nd other laboratory test s such asmeasurement o f serum rjehz-3-tybcmqz psin levels. Labora tory testing supervi sed and results monitor ed by Dianna Kendrick, Ph.D.,FACMG, HC LD, CGMBS. Ebevv-4-nolyhvg psin deficiency is a relativelycommo n autosomal reces sive condition. The twomost common deficien cy alleles in mzvihewj-3-okdu trypsin gene (protease inhibitorlocus, PI) are designated PI*Z and PI*S, and theno rmal allele is desig nated PI*M. The PI*Z/PI*Z,PI*S/ PI*Z, and PI*S/PI*S genot ypes associatedwith decreased serum PI levels that areequivalent t o approximately 1 0-20%, 35-40%, and50-6 0% of normal, respect ively. The PI*Z/PI*Z andPI*S/PI*Z ge notypes are reported to beassociated wi th an increased risk of liverdisease in childhood, and chronic obstructivepulm onary disease (COPD) and emphysema in ad ultlife. The PI*M/PI*Z, and PI*M/PI*S genot ypesare also associated with decreased serum PIlevels but these level s, and the PI levelsas sociated with the PI*S/P I*S genotype, areap parently adequate to pro tect the lungs inthe vas t majority of ind ividuals. Individualswith the PI*M/PI*Z genot ype may have decreasedp ulmonary function, and m ay be at increasedrisk f or COPD, especially if t hey smoke. It shoul d be noted that seru m nloyn-3-wvbniza psinlevel s can be induce d by a wide variety ofconditions th at include pregnan cy, infection,numer ous inflammatory co nditions, cancer, andlive r disease. Levels of bvcby-3-flkzpkn psinmay be reduced by o ther conditions. Therefore,immun ological and functional determinations ofserum dsmwy-4-kumyvoc psin levels may notc orrelate with the indivi dual's PI genotype. The P I*Z, PI*S, and PI*M alleles are detectedby multiplex polymerase marixa n reaction (PCR)amplificat ion of specific region s of the PIgene, followe d by restriction enz yme digestionand ca pillary electrophoresis . This assay doesnot t est for the presence of other mutationswithin the jjxpt-8-bzroaaf psin gene ornon-genetic c auses of aqgek-6-skpezqz psindefic iency. Since ge netic variation and otherfactors ca n affect the accuracy of directmutation testing, these results s hould beinterpreted i n light of clinical and familialdata. T his test was developed a nd its analytical perf ormance characteristics havebeen determined by [facility].It h as not been cleared or approved by FDA. This as say has been validatedp ursuant to the CLIA reg ulations and is used for clinical purposes. Clinical NOT GIVEN Indication (test code = 0846069) Referring NOT GIVEN Physician (test code = 7398612) LATRELL (test code = Performing Lab LATRELL) [facility] [address] [place] [address] Chun Dunne MD, PhD, JEAN [facility] CenterMISCELLANEOUS LAB [id number] 12:14:00 Test Item Value Reference Range Interpretation Comments SCAN RESULT (test code = 9747991) [id number] 17:08:00 Test Item Value Reference Interpretation Comments Range Zinc (test code = 46 60- 130 mcg/dL L This te st was 8056927) developed and i ts analytical performance characteristics have been determined by [employer]. It has not been cleared or appr hamida by theFDA. This assay has been validated pursu ant to the CLIA regulations and is used for clinic al purposes. LATRELL (test code = Performing Lab LATRELL) *LUZ MARIA [facility], [address] [place] [address] Nlalely Flores MD Lab Interpretation Abnormal (test code = 16481-7) [facility] CenterT Spot [id number] 13:21:00 Test Item Value Reference Range Interpretation Comments T-Spot TB (test code = 39247-6) Negative Neg Ctrl Spot Count (test code = 0 85064-5) Panel A Spot (test code = 15388-4) 1 Panel B Spot (test code = 14472-8) [address] (test code = 0 33117-2) Scan Result (test code = 1391422) [facility] CenterT SPOT [id number] 13:21:00 Test Item Value Reference Range Interpretation Comments T-SPOT TB (BEAKER) (test code = Negative 1683) NEG CONTROL SPOT COUNT (BEAKER) 0 (test code = 1684) PANEL A SPOT (BEAKER) (test code = 1 1685) PANEL B SPOT (BEAKER) (test code = 1 1686) POS CONTROL SPOT CT (BEAKER) (test 0 code = 1687) SCAN RESULT (test code = 3210971) [id number] 20:57:00 Test Item Value Reference Range Interpretation Comments Fxnow-6-Maikhqlfxwq 133 mg/dL 83-199 (test code = 2425108) LATRELL (test code = Performing Lab EZ LATRELL) [employer] [facility] [address] [place] [address] Chun Dunne MD, PhD, JEAN [facility] CenterAlpha-1-Antitrypsin (AAT) [id number] 20:57:00 Test Item Value Reference Interpretation Comments Range A-1 Antitryp SEE BELOW THIS PATIENT'S Phenotyp (test AAEFZ-6-JLEEW RYPSIN code = PHENOTYPE IS PI *MM. 90% of ) normal individu als have the MM phenotyp e, with normal quantita tive AATlevels. Many phenotypic patterns have b een described, incl uding deficiencystate s with F, S, Z, or other alleles. As a general estim ation, compared to Mal fabby of 100% of normal F-8-Pdrtmjjgjnx protein, the S allele producesapproxi mately 60% and the Z allel e 20%. For example, an MS phenotype wouldhave about 80% of normal A-1-Anti trypsin protein level, a 50% contributionfro m the M allele and 30% from the S allele. A ZZ ph enotype would have abou t20% of normal levels, a 10% contribution fr om each Z gene. The F all gregorio hasnormal A-1-A ntitrypsin levels, but the kinetics of elastase inh ibition is notas efficient as an M allele product; F alleles should be consideredfunct ionally mildly deficien t. Other variants are id entifiable by phenotypican alysis. These include C M, DP, EM, GM, IS, LM, M1M 2, M3M3, MP, MT, XX, MY, and M1N. I, P, T and null a lleles are considered philipp terious. C, D, E, G, L,M1, M2, M3, X and Y alleles a re generally consi dered normal variants . TheMZ-Vargas phe notype is a normal variant; care should be taken to avoidconfusion with the deficient MZ ph enotype. LATRELL (test code Performing Lab = LATRELL) [employer] [address] [address] Chun Dunne MD, PhD, JEAN [facility] CenterCarbohydrate antigen 19-9 (CA 19-9)2020-04-09 20:54:00 Test Item Value Reference Range Interpretation Comments CA 19-9 33 U/mL <34 This test was (test code = performed using the 23007-5) Siemens Chemiluminescen t method.Values o btained from different assay methods cannot be used interchangeably .CA19-9 levels, regardl ess of value, should n ot be interpreted as absoluteevidenc e of the presence or abs ence of disease. LATRELL (test Performing Lab code = LATRELL) [employer] [facility] [address] [place] [address] Chun Dunne MD, PhD, JEAN [facility] CenterMumps antibody, [id number] 17:56:00 Test Item Value Reference Interpretation Comments Range Mumps Ab Igg (test <9.00 AU/mL L REFERENCE RANGE: <9.00 code = 9053777) AU/mL Interpretation< 9.00 Negative9 .00-10.99 Equivocal >10.99 Positive A positive result indicates that the patient hasanti body to mumps virus. It does not differentiatebe tween an active or past infection. The clinicaldiagnos is must be interpreted in conjunction wit hclinical signs and sympt oms of the patient. LATRELL (test code = Performing Lab LATRELL) *QDID [employer] [facility] [address] [place] [address] Luz Kiser MD Lab Interpretation Abnormal (test code = 12245-3) [facility] CenterTestosterone, free + [id number] 15:21:00 Test Item Value Reference Interpretation Comments Range Testosterone (test 15 ng/dL 250-1100 L Men with clinically code = 2591911) significant hypogonadal symptomsand testosterone va lues repeatedly in t he range of the 20 0-300 ng/dL or less, may benefit from testosterone treatment after adequate risk a nd benefits kimber ordoñez. For additional information, pl ease refer to http://educatio n.[facility] stdiagnostics.c om/fa q/TotalTestoste Lorie [facility] (This li nk is being provided for informational/e ducat ional purposes only.) This mindy t was developed and i ts analytical performance characteristics have been determined by [employer]. It has not been cleared or appr hamida by theFDA. This assay has been validated pursu ant to the CLIA regulations and is used for clinic al purposes. Testosterone, Free 1.9 pg/mL 35-155 L This mindy t was (test code = developed and i ts 3028456) analytical performance characteristics have been determined by [employer]. It has not been cleared or appr hamida by theFDA. This assay has been validated pursu ant to the CLIA regulations and is used for clinic al purposes. LATRELL (test code = Performing Lab LATRELL) *LUZ MARIA [employer] [facility], [address] [place] [phone] Nallely Flores MD Lab Interpretation Abnormal (test code = 40234-3) [facility] CenterActin (Smooth Muscle) Antibody, [id number] 03:36:00 Test Item Value Reference Range Interpretation Comments Anti-Smooth <20 See Note: U Reference Range :<20 Muscle Ab NEGATIVE> O R = 20 (test code = POSITIVE Antibo dies 1583855) recognizing act in are the main compon entof smooth muscle antibodies asso ciated withautoimmune liver disease. Actin antibodies aref ound in approximatel y 75% of patients withautoimmune hepatitis (AIH) type 1, approximatel y65% of patients wit h autoimmune cholangitis,manas roxima tely 30% of pat ients with primary biliarycirrhosi s, and approximately 2 % of healthy people. High values are clos corine correlated with AIH type 1. LATRELL (test code Performing Lab = LATRELL) [employer] [facility] [address] [place] [address] Chun Dunne MD, PhD, JEAN [facility] CenterRubeola antibody [id number] 19:59:00 Test Item Value Reference Range Interpretation Comments Rubeola Ab, 43.2 AU/mL REFERENCE RANGE : Igg (test code <13.50 AU/mL = 13871-6) AU/mL Interpretation ==== <13.50 Negative 13.50-16.49 Equivocal >16.49 Positive A posi tive result indicate s that the patient hasantibody to measles virus. It does notdifferentiat e between an acti ve or past infection. The clinical diagno sis must be interpr eted inconjunction w ith clinical signs and symptoms ofthe patient. For additional information, pl ease refer tohttp://educat ion.[facility] stDiagnostics.c om/faq/ BZK209(This richelle k is being provided for informational/e ducatio nal purposes on ly.) LATRELL (test code Performing Lab = LATRELL) *QDID [employer] [facility] [address] [place] [address] Luz Kiser MD [facility] CenterCeruloplasmin2020-10-09 14:49:00 Test Item Value Reference Range Interpretation Comments Ceruloplasmin (test code 14 mg/dL 18-36 L = 7827808) LATRELL (test code = LATRELL) Performing Lab *LUZ MARIA [employer] [facility], [address] [place] [phone] Nallely Flores MD Lab Interpretation (test Abnormal code = 38365-0) [facility] CenterCarotid doppler [id number] 07:33:50 Ejection FractionSLEH ECHO HEARTLAB MKCKESSON CPACSRight Impression1. There is <50% diameter reduction (approximately 23% by 2-D measurement)in the internal carotid artery with a peak velocity of 82.5 cm/sec andheterogeneous plaque.2. The external carotid artery is within normal limits.3. There is non-occluding plaque in the common carotid artery.4. The vertebral artery flow is antegrade and normal.5. The subclavian artery is within normal limits where visualized.Left Impression1. There is <50% diameter reduction (approximately 24% by 2-D measurement)in the internal carotid artery with a peakvelocity of 73.3 cm/sec andheterogeneous plaque.2. The external carotid artery is within normal limits.3. There is non-occluding plaque in the common carotid artery.4. The vertebral artery flow is antegrade and normal.5. The subclavian artery is within normal limits [...] were patent with normal flow bilaterally where visualized. Signature Velocities are measured in cm/s ; Diameters are measured in cm Carotid Right Measureme nts+ +----+----+-----+ + + +! Location !PSV !EDV !Angle!%Stenosis 2D!%Stenosis Doppler!Tortuosity !+ +----+----+-----+ +- + +!Prox CCA !70.9!14.1!60 ! ! ! !+ +----+----+-----+ + + +!Di st CCA !65.1!17.6!60 ! ! ! !+ +----+----+-----+ + + +!Prox ICA !46.4!21.2!60 ! ! ! !+ +----+----+-----+ + + +!Di st ICA !82.5!29.9!60 ! ! ! !+ +----+----+-----+ + + +!Prox ECA !110 !18.1!60 ! ! ! !+ +----+----+-----+ + + +!Ve rtebral !48.7!16.4!60 ! ! ! !+ +----+----+-----+ -+ + +!Prox Subclavian!100 !0 !60 ! ! ! !+ +----+----+-----+ + + + - There is antegrade vertebral flow noted on the right side. - Additional Measurements:ICAPSV/CCAPSV 1.27.ICAEDV/CCAEDV 2.12. Carotid Left Measurements+ +----+----+-----+ + + +!Location !PSV !EDV !Angle!%Stenosis 2D!%Stenosis Doppler!Tortuosity !+ ---+----+----+-----+ + + +!Prox CCA !101 !29.1!60 ! ! ! !+ +----+----+-----+ + + +!Dist CCA !75.6!18.8!60 ! ! ! !+ ----+----+----+-----+ + + +!Prox ICA !56.3!22.3!60 ! ! ! !+ +----+----+-----+ + -+ +!Dist ICA !73.3!27.6!60 ! ! ! !+ -----+----+----+-----+ + + +!Prox ECA !81.5!13.5!60 ! ! ! !+ +----+----+-----+ + --+ +!Vertebral !53.9!26.4!60 ! ! ! !+--------- ------+----+----+-----+ + + +!Prox Subclavian!129 !0 !60 ! ! ! !+ +----+----+-----+ + + + - There is antegrade vertebral flow noted on the left side. - Additional Measurements:ICAPSV/CCAPSV 0.97.ICAEDV/CCAEDV 0.95. Interface, External Ris In - 04/08/2020 7:34 AM CDTPV LAB - Carotid Duplex Study Demographics Patient Name JOEL DESOUZA Date of Study 04/07/2020 MELLY Age 64 Visit Number [id number] Gender Male Accession Number [id number] Date of 1955 Referring Mary Ann Walker Estela Room Number Physician Licensed Clinician Irma Romero T Interpreting Cori Kidd, Physician ProcedureType of Study: Cerebral: Carotid, CAROTID DOPPLER, BILATERAL. Indications for Study:Liver transplant evaluation.Patient Status:Routine.Study Location:Vascular Lab.Technical Quality:Adequate visualization.Risk FactorsHistory of Disease+ +----+ +!Diagnosis !Date!Comments !+ +----+ +!Hi story/Risk Factors: ! !h/o lung transplant, cirrhosis, ckd !+ +----+ +ImpressionsRight Impression1. There is <50% diameter reduction (approximately 23% by 2-D measurement)in the internal carotid artery with a peak velocity of 82.5 cm/sec andheterogeneous plaque.2. The external carotid artery is within normal limits.3. There is non-occluding plaque in the common carotid artery.4. The vertebral artery flow is antegrade and normal.5. The subclavian artery is within normal limits where visualized.Left Impression1. There is <50% diameter reduction (approximately 24% by 2-D measurement)in the internal carotid artery with a peak velocity of73.3 cm/sec andheterogeneous plaque.2. The external carotid artery is within normal limits.3. There is non-occluding plaque in the common carotid artery.4. The vertebral artery flow is antegrade and normal.5. The subclavian artery is within normal limits where visualized. Conclusions Summary Carotidduplex scanning and color flow imaging were performed bilaterally. The arteries were adequately visualized. The bilateral internal carotid arteries had <50% hemodynamically insignificant stenosis (approximately 23% by 2-D measurement on the right, approximately 24% by 2-D measurement on the left) with heterogeneous plaque. The vertebral artery flow was antegrade and normal bilaterally. The subclavian arteries were patent with normal flow bilaterally where visualized. Signature Velocities are measured in cm/s ; Diameters are measured in cmCarotid Right Measurements+ -----+----+----+-----+ + + +!Location !PSV !EDV !Angle!%Stenosis 2D!%Stenosis Doppler!Tortuosity !+ +----+----+-----+ + --+ +!Prox CCA !70.9!14.1!60 ! ! ! !+--------- ------+----+----+-----+ + + +!Dist CCA !65.1!17.6!60 ! ! ! !+ +----+----+-----+ + ---+ +!Prox ICA !46.4!21.2!60 ! ! ! !+-------- -------+----+----+-----+ + + +!Dist ICA !82.5!29.9!60 ! ! ! !+ +----+----+-----+ + ----+ +!Prox ECA !110 !18.1!60 ! ! ! !+------- --------+----+----+-----+ + + +!Vertebral !48.7!16.4!60 ! ! ! !+ +----+----+-----+ + -----+ +!Prox Subclavian!100 !0 !60 ! ! ! !+------ ---------+----+----+-----+ + + + - There is antegrade vertebral flow noted on the right side. - Additional Measurements:ICAPSV/CCAPSV 1.27.ICAEDV/CCAEDV 2.12.Carotid Left Measurements+ +----+----+-----+ + +---- -------+!Location !PSV !EDV !Angle!%Stenosis 2D!%Stenosis Doppler!Tortuosity !+ +----+----+--- --+ + + +!Prox CCA !101 !29.1!60 ! ! ! !+ +----+----+-----+ + + +!Di st CCA !75.6!18.8!60 ! ! ! !+ +----+----+-- ---+ + + +!Prox ICA !56.3!22.3!60 ! ! ! !+ +----+----+-----+ + + +!Di st ICA !73.3!27.6!60 ! ! ! !+ +----+----+- ----+ + + +!Prox ECA !81.5!13.5!60 ! ! ! !+ +----+----+-----+ + + +!V ertebral !53.9!26.4!60 ! ! ! !+ +----+----+ -----+ + + +!Prox Subclavian!129 !0 !60 ! ! ! !+ +----+----+-----+ + + + - There is antegrade vertebral flow noted on the left side. - Additional Measurements:ICAPSV/CCAPSV 0.97.ICAEDV/CCAEDV 0.95.[facility] [id number] 12:43:00 Test Item Value Reference Range Interpretation Comments T3, Total (test code = 3053-6) 36 ng/dL 48-159 L Lab Interpretation (test code = Abnormal 90185-9) [facility] CenterT32020-10-08 12:43:00 Test Item Value Reference Range Interpretation Comments T3 TOTAL (ANYIAKER) (test code = 656) 36 ng/dL 48-159 L Varicella zoster antibody, [id number] 09:11:00 Test Item Value Reference Range Interpretation Comments Varicella IgG (test 0.9 code = 61808-2) LATRELL (test code = LATRELL) VARICELLA ZOSTER RESULT INTERPRETATIONS: <=0.8 Al Nonreactive: Presumed non-immune to VZV 0.9-1.0 Al Equivocal >=1.1 Al Reactive: Presumed immune to VZV [facility] CenterVARICELLA ZOSTER ANTIBODY, [id number] 09:11:00 Test Item Value Reference Range Interpretation Comments VARICELLA ZOSTER IGG (AL) (BEAKER) 0.9 (test code = 3197) VARICELLA ZOSTER RESULT INTERPRETATIONS: <=0.8 Al Nonreactive: Presumed non-immune to VZV 0.9-1.0 Al Equivocal >=1.1 Al Reactive: Presumed immune to VZVRubella antibody, [id number] 08:17:00 Test Item Value Reference Range Interpretation Comments Rubella IgG Quant (test 9.0 <8.0 IU/mL code = 8014-3) LATRELL (test code = LATRELL) Rubella IgG Result Interpretation: </= 7.0 IU/mL Negative - Presumed non-immune 8.0 - 9.9 IU/mL Equivocal >= 10.0 IU/mL Positive - Presumed immune Lab Interpretation (test Abnormal code = 97685-7) [facility] CenterEBV-VCA antibody, [id number] 08:17:00 Test Item Value Reference Range Interpretation Comments ELINA JOYNER VIRAL Negative Negative, CAPSID ANTIGEN IGM (test Equivocal code = 3418) LATRELL (test code = LATRELL) Elina Joyner Viral Capsid Antigen IgM Result Interpretation: </= 0.8 Al Negative 0.9-1.0 Al Equivocal >/= 1.1 Al Positive Lab Interpretation (test Normal code = 22476-5) [facility] CenterCytomegalovirus antibody, [id number] 08:17:00 Test Item Value Reference Range Interpretation Comments CMV IGM (test code = Negative Negative, 3437) Equivocal LATRELL (test code = LATRELL) CMV IgM Result Interpretation: </= 0.8 Al Negative 0.9-1.0 Al Equivocal >/= 1.1 Al Positive Lab Interpretation (test Normal code = 29300-0) [facility] CenterCYTOMEGALOVIRUS ANTIBODY, [id number] 08:17:00 Test Item Value Reference Range Interpretation Comments CYTOMEGALOVIRUS IGM ANTIBODY Negative Negative, Equivocal (BEAKER) (test code = 3437) CMV IgM Result Interpretation: </= 0.8 Al Negative 0.9-1.0 Al Equivocal >/= 1.1 Al PositiveEBV ANTIBODY, [id number] 08:17:00 Test Item Value Reference Range Interpretation Comments ELINA JOYNER VIRAL CAPSID Negative Negative, Equivocal ANTIGEN IGM (BEAKER) (test code = 3418) Elina Joyner Viral Capsid Antigen IgM Result Interpretation: </= 0.8 Al Negative 0.9-1.0 Al Equivocal >/= 1.1 Al PositiveRUBELLA ANTIBODY, IGG 2020-04-07 08:17:00 Test Item Value Reference Range Interpretation Comments RUBELLA IGG QUANTITATION (BEAKER) 9.0 IU/mL <8.0 (test code = 572) Rubella IgG Result Interpretation: </= 7.0 IU/mL Negative - Presumed non- immune 8.0 - 9.9 IU/mL Equivocal >= 10.0 IU/mL Positive - Presumed immune RAD, MANDIBLE, MIN 4 [id number] 13:44:00Referring: Dr. Yary Eastman/ [place] for Exam:->liver transplant evaluationFINAL REPORT Clinical history: Liver transplant evaluation TECHNIQUE: Five views of the mandible were obtained IMPRESSION: None FINDINGS:There is no evidence for acute fracture or dislocation. No focal lytic or blastic abnormality is identified. Dental hardware is noted. No significant periodontal lucency is identified to suggest periodontal disease. The surrounding soft tissues are unremarkable. IMPRESSION: No acute radiographic abnormality identified within the mandible. Signed: Javed Paez MDReport Verified Date/Time: 04/06/2020 13:44:20 XR mandible 4 views [id number] 13:44:00Interface, External Ris In - 04/06/2020 1:46 PM CDTFINAL REPORT Clinical history: Liver transplant evaluation TECHNIQUE: Five views of the mandible were obtained IMPRESSION: None FINDINGS:There is no evidence for acute fracture or dislocation. No focal lytic or blastic abnormality is identified. Dental hardware is noted. No significant periodontal lucency is identified to suggest periodontal disease. The surrounding soft tissues are unremarkable. IMPRESSION: No acute radiographic abnormality identified within the mandible. Signed: Javed Paez MDReport Verified Date/Time:04/06/2020 13:44:20 [facility] 2 [id number] 13:27:00Referring: Dr. Yary Eastman/ [place] for Exam:->liver transplant evaluationFINAL REPORT CHEST PA AND LATERAL COMPARISON STUDY: 02/23/2020 History provided : Liver transplantation evaluation Heart size normal. Prior sternotomy. Chronic blunting of the right costophrenic angle probably due to pleural thickening. Lungs clear and vascularity normal. Signed: Moreno Wilkes MDReport Verified Date/Time: 04/06/2020 13:27:52 Reading Location: [facility] Radiology Reading Room RAD, BONE DENSITY [id number] 12:40:00Referring: Dr. Yary Eastman/ [place] for Exam:->liver transplant evaluationFINAL REPORT Bone mineral density study. CLINICAL INDICATION: Liver transplant evaluation. COMPARISON: 06/05/2018. FINDINGS: Bone densitometry of the femoral necks and lumbar spine was performed. The left femoral neck bone mineral density is 0.482 gm/cm2, the T-score is -4.5, and the Z-score is -2.9. Left femoral neck bone mineral density is decreased 29.8% from the prior examination from 06/05/2018. The right femoral neck total bone mineral density is 0.495 gm/cm2, the T-scoreis -4.4, and the Z-score is -2.8. Right femoral neck bone mineral density is decreased 23.7% from the prior examination from 06/05/2018. The lumbar spine total bone mineral density is 0.744 gm/cm2, the T-score is -4.0, and the Z-score is -2.6. Lumbar spine bone mineral density is decreased 15.2% from the prior examination from 06/05/2018. IMPRESSION: 1. WHO classification of osteoporosis for the leftfemoral neck with a high risk of fracture. 2. WHO classification of osteoporosis for the right femoral neck with a high risk of fracture. 3. WHO classification of osteoporosis for the lumbar spine witha high risk of fracture. Signed: Javed Paez Verified Date/Time: 04/06/2020 12:40:47 XR dxa bone density [id number] 12:40:00Interface, External Ris In - 04/06/2020 12:42 PM CDTFINAL REPORT Bone mineral density study. CLINICAL INDICATION: Liver transplant evaluation. COMPARISON: 06/05/2018. FINDINGS: Bone densitometry of the femoral necks and lumbar spine was performed. The left femoral neck bone mineral density is 0.482 gm/cm2, the T-score is -4.5, and the Z-score is -2.9. Left femoral neck bone mineral density is decreased 29.8% from the prior examination from 06/05/2018. The right femoral neck total bone mineral density is 0.495 gm/cm2, the T-score is -4.4, and the Z-score is -2.8. Right femoral neck bone mineral density is decreased 23.7% from the prior examination from 06/05/2018. The lumbar spine total bone mineral density is 0.744 gm/cm2, the T-score is -4.0, and the Z-score is -2.6. Lumbar spine bone mineral density is decreased 15.2% from the prior examination from 06/05/2018. IMPRESSION: 1. WHO classification of osteoporosis for the left femoral neck with a high risk of fracture. 2. WHO classification of osteoporosis for the right femoral neck with a high risk of fracture. 3. WHO classification of osteoporosis for the lumbar spine with a high risk of fracture. Signed: Javed Paez MDRfernandoort Verified Date/Time: 04/06/2020 12:40:47 [facility]inoCryptococcal antigen 2020-04-06 11:19:00 Test Item Value Reference Range Interpretation Comments Cryptococcal Antigen, Serum Negative Negative, Interference (test code = 33523-7) Lab Interpretation (test code Normal = 34537-3) [facility] CenterCRYPTOCOCCAL [id number] 11:19:00 Test Item Value Reference Range Interpretation Comments CRYPTOCOCCAL ANTIGEN, SERUM Negative Negative, Interference (BEAKER) (test code = 1828) [id number] 11:16:00 Test Item Value Reference Range Interpretation Comments RPR (test code = 68727-3) Nonreactive Nonreactive Lab Interpretation (test code = Normal 73705-9) [facility] CenterRPR2020-10-07 11:16:00 Test Item Value Reference Range Interpretation Comments RPR SCREEN (BEAKER) (test code = Nonreactive Nonreactive 420) [id number] 10:35:00 Test Item Value Reference Range Interpretation Comments T4, Total (test code = 3.8 ug/dL 4.9-11.7 L 3026-2) LATRELL (test code = LATRELL) [employer] ID - GENARO C Lab Interpretation (test Abnormal code = 61943-7) [facility] CenterT42020-10-07 10:35:00 Test Item Value Reference Range Interpretation Comments T4 TOTAL (BEAKER) (test code = 895) 3.8 ug/dL 4.9-11.7 L [employer]ather Belt Shaper ID - GENARO [id number] 09:39:00 Test Item Value Reference Range Interpretation Comments PSA (test code = 2857-1) 0.0 ng/mL 0-4 LATRELL (test code = LATRELL) [employer]ather [employer] Shaper ID - GENARO C Lab Interpretation (test Normal code = 99732-7) [facility] CenterTSH2020-10-07 09:39:00 Test Item Value Reference Range Interpretation Comments TSH (test code = 4.994 0.350- 4.940 uIU/mL H 57295-5) LATRELL (test code = LATRELL) [employer]ather Belt Shaper ID - GENARO C Lab Interpretation (test Abnormal code = 06052-1) [facility] CenterHepatitis A antibody, IgG ([facility] ONLY)2020-04-06 09:39:00 Test Item Value Reference Range Interpretation Comments Hep A IgG (test code = Reactive Nonreactive A 45801-2) LATRELL (test code = LATRELL) Leather Belt Shaper ID - GENARO C Lab Interpretation (test Abnormal code = 10478-3) [facility] A ANTIBODY, [id number] 09:39:00 Test Item Value Reference Range Interpretation Comments HEPATITIS A IGG ANTIBODY (BEAKER) Reactive Nonreactive A (test code = 2797) [employer]ather Belt Shaper ID - GENARO [id number] 09:39:00 Test Item Value Reference Range Interpretation Comments PROSTATE SPECIFIC ANTIGEN (BEAKER) 0.0 ng/mL 0.0-4.0 (test code = 844) [employer] ID - GENARO [id number] 09:39:00 Test Item Value Reference Range Interpretation Comments THYROID STIMULATING HORMONE 4.994 uIU/mL 0.350-4.940 H (BEAKER) (test code = 772) [employer]ather Belt Shaper ID - GENARO CCarcinoembryonic Antigen (CEA)2020-04-06 09:26:00 Test Item Value Reference Range Interpretation Comments CEA, SERUM (test code = 3.6 ng/mL 0-5 9-6) LATRELL (test code = LATRELL) Leather Belt Shaper ID - GENARO C Lab Interpretation (test Normal code = 99245-9) [facility] B core antibody, [id number] 09:26:00 Test Item Value Reference Range Interpretation Comments Hep B Core Total Ab (test Nonreactive Nonreactive code = 60506-8) LATRELL (test code = LATRELL) Leather Belt Shaper ID - GENARO C Lab Interpretation (test Normal code = 76473-6) [facility] B core antibody, [id number] 09:26:00 Test Item Value Reference Range Interpretation Comments Hep B C IgM (test code = Nonreactive Nonreactive 81349-4) LATRELL (test code = LATRELL) Leather Belt Shaper ID - GENARO C Lab Interpretation (test Normal code = 04906-5) [facility] A antibody, [id number] 09:26:00 Test Item Value Reference Range Interpretation Comments Hep A IgM (test code = Nonreactive Nonreactive 25492-2) LATRELL (test code = LATRELL) Leather Belt Shaper ID - GENARO C Lab Interpretation (test Normal code = 55726-3) [facility] CenterCARCINOEMBRYONIC ANTIGEN (CEA)2020-04-06 09:26:00 Test Item Value Reference Range Interpretation Comments CARCINOEMBRYONIC ANTIGEN (BEAKER) 3.6 ng/mL 0.0-5.0 (test code = 685) [employer]ather [employer] Shaper ID - GENARO CHEPATITIS B CORE ANTIBODY, [id number] 09:26:00 Test Item Value Reference Range Interpretation Comments HEPATITIS B CORE IGM ANTIBODY Nonreactive Nonreactive (BEAKER) (test code = 645) Leather Belt Shaper ID - GENARO CHEPATITIS A ANTIBODY, [id number] 09:26:00 Test Item Value Reference Range Interpretation Comments HEPATITIS A IGM ANTIBODY (BEAKER) Nonreactive Nonreactive (test code = 498) Leather Belt Shaper [facility] - [facility]DEEPATITIS B CORE ANTIBODY, [id number] 09:26:00 Test Item Value Reference Range Interpretation Comments HEPATITIS B CORE TOTAL ANTIBODY Nonreactive Nonreactive (BEAKER) (test code = 497) Leather Belt Shaper [facility] - [facility] surface [id number] 09:23:00 Test Item Value Reference Range Interpretation Comments HBsAg Screen (test code Nonreactive Nonreactive = 5195-3) LATRELL (test code = LATRELL) Specimen is considered negative for HBsAg. Lab Interpretation (test Normal code = 91322-8) [facility] surface [id number] 09:23:00 Test Item Value Reference Range Interpretation Comments Hep B S Ab (test code = 60.7 <8.0 mIU/mL H 87288-8) LATRELL (test code = LATRELL) Leather Belt Shaper ID - [facility] C Lab Interpretation (test Abnormal code = 87480-8) [facility] C [id number] 09:23:00 Test Item Value Reference Range Interpretation Comments Hepatitis C Ab (test code Nonreactive Nonreactive = 72397-2) LATRELL (test code = LATRELL) Leather Belt Shaper HI - [facility] C Lab Interpretation (test Normal code = 91560-9) [facility] Antigen with HIV-1/2 [id number] 09:23:00 Test Item Value Reference Range Interpretation Comments HIV-1 Antigen with HIV Nonreactive Nonreactive 1&2 Antibody (test code = 33696-8) LATRELL (test code = LATRELL) Leather Belt Shaper ID - [facility] C Lab Interpretation (test Normal code = 27232-6) [facility] CenterHEPATITIS [facility] SURFACE [id number] 09:23:00 Test Item Value Reference Range Interpretation Comments HEPATITIS B SURFACE ANTIGEN (2) Nonreactive Nonreactive (BEAKER) (test code = 2585) Specimen is considered negative for HBsAg.HEPATITIS B SURFACE [id number] 09:23:00 Test Item Value Reference Range Interpretation Comments HEPATITIS B SURFACE ANTIBODY 60.7 mIU/mL <8.0 H (BEAKER) (test code = 647) Leather Belt Shaper ID - GENARO CHEPATITIS C [id number] 09:23:00 Test Item Value Reference Range Interpretation Comments HEPATITIS C ANTIBODY (BEAKER) Nonreactive Nonreactive (test code = 367) Leather Belt Shaper ID - GENARO CHIV-1 ANTIGEN WITH HIV-1/2 [id number] 09:23:00 Test Item Value Reference Range Interpretation Comments HIV-1 ANTIGEN WITH HIV 1\\T\\2 Nonreactive Nonreactive ANTIBODY (2) (BEAKER) (test code = 2586) Leather Belt Shaper ID - GENARO CVITAMIN D, [id number] 09:20:00 Test Item Value Reference Range Interpretation Comments VITAMIN D 25-OH (BEAKER) (test 12.7 ng/mL 6.6-49.9 code = 2764) Effective 04/10/2017: Reference Range ChangeNew: 6.6-49.9 ng/mL Previous: 13.0-47.8 ng/mLRecommended Vitamin D Target Range: 30.0-40.0 ng/mLOperator ID - GENARO CCOMPREHENSIVE METABOLIC [id number] 09:05:00 Test Item Value Reference Range Interpretation Comments TOTAL PROTEIN 4.1 gm/dL 6.0-8.3 L (BEAKER) (test code = 770) ALBUMIN (BEAKER) 3.0 g/dL 3.5-5.0 L (test code = 1145) ALKALINE PHOSPHATASE 183 U/L 40-150 H (BEAKER) (test code = 346) BILIRUBIN TOTAL 1.4 mg/dL 0.2-1.2 H (BEAKER) (test code = 377) SODIUM (BEAKER) (test 138 meq/L 136-145 code = 381) POTASSIUM (BEAKER) 5.4 meq/L 3.5-5.1 H (test code = 379) CHLORIDE (BEAKER) 111 meq/L 98-107 H (test code = 382) CO2 (BEAKER) (test 18 meq/L 22-29 L code = 355) BLOOD UREA NITROGEN 61 mg/dL 7-21 H (BEAKER) (test code = 354) CREATININE (BEAKER) 4.62 mg/dL 0.57-1.25 H (test code = 358) GLUCOSE RANDOM 114 mg/dL 70-105 H (BEAKER) (test code = 652) CALCIUM (BEAKER) 7.9 mg/dL 8.4-10.2 L (test code = 697) AST (SGOT) (BEAKER) 27 U/L 5-34 (test code = 353) ALT (SGPT) (BEAKER) 30 U/L 6-55 (test code = 347) EGFR (BEAKER) (test 13 mL/min/1.73 ESTIMA ROBERTA GFR IS code = 1092) sq m NOT ACCURATE CREATININE CLEARANCE IN PREDICTING GLOMERULAR FILTRATION RATE . ESTIMATED GFR I S NOT APPLICABLE FOR DIALYSIS PATIEN TS. Leather Belt Shaper ID - GENARO [id number] 09:01:00 Test Item Value Reference Range Interpretation Comments Transferrin (test code = 134 mg/dL 174-382 L 3034-6) LATRELL (test code = LATRELL) Leather Belt Shaper ID - GENARO C Lab Interpretation (test Abnormal code = 49622-6) [facility] CenterTRANSFERRIN2020-10-07 09:01:00 Test Item Value Reference Range Interpretation Comments TRANSFERRIN (BEAKER) (test code = 134 mg/dL 174-382 L 541) Leather Belt Shaper ID - GENARO CLipid [id number] 08:57:00 Test Item Value Reference Range Interpretation Comments Triglycerides (test 56 mg/dL code = 2571-8) Cholesterol (test code 100 mg/dL = 2093-3) HDL (test code = 34 mg/dL 2085-9) LDL Calculated (test 55 mg/dL code = 27385-8) LATRELL (test code = LATRELL) Triglyceride Reference Range: Low Risk <150 Borderline 150-199 High Risk 200-499 Very High Risk >=500 Cholesterol Reference Range: Low Risk <200 Borderline 200-239 High Risk >240 HDL Cholesterol Reference Range: Low Risk >=60 High Risk <40 LDL Cholesterol Reference Range: Optimal <100 Near Optimal 100-129 Borderline 130-159 High 160-189 Very High >=190 Leather Belt Shaper ID - GENARO C [facility] CenterEthanol2020-10-07 08:57:00 Test Item Value Reference Range Interpretation Comments Ethanol Lvl (test code = <10 <=10 mg/dL 5643-2) LATRELL (test code = LATRELL) Leather Belt Shaper ID - GENARO C Lab Interpretation (test Normal code = 95953-3) [facility] CenterBilirubin, [id number] 08:57:00 Test Item Value Reference Range Interpretation Comments Bilirubin, Direct (test 0.9 mg/dL 0.1-0.5 H code = 1968-7) LATRELL (test code = LATRELL) Leather Belt Shaper ID - GENARO C Lab Interpretation (test Abnormal code = 53524-0) [facility] CenterGamma Glutamyl Transferase (GGT)2020-04-06 08:57:00 Test Item Value Reference Range Interpretation Comments GGT (test code = 2324-2) 46 U/L 9-64 LATRELL (test code = LATRELL) Leather Belt Shaper ID - GENARO C Lab Interpretation (test Normal code = 40903-7) [facility] CenterUric [id number] 08:57:00 Test Item Value Reference Range Interpretation Comments Uric Acid (test code = 15.2 mg/dL 2.6-7.2 H 3084-1) LATRELL (test code = LATRELL) Leather Belt Shaper ID - GENARO C Lab Interpretation (test Abnormal code = 33626-7) [facility] CenterURIC [id number] 08:57:00 Test Item Value Reference Range Interpretation Comments URIC ACID (BEAKER) (test code = 15.2 mg/dL 2.6-7.2 H 773) Leather Belt Shaper ID - GENARO [id number] 08:57:00 Test Item Value Reference Range Interpretation Comments MAGNESIUM (BEAKER) (test code = 2.4 mg/dL 1.6-2.6 627) Leather Belt Shaper ID - GENARO [id number] 08:57:00 Test Item Value Reference Range Interpretation Comments PHOSPHORUS (BEAKER) (test code = 3.0 mg/dL 2.3-4.7 604) Leather Belt Shaper ID - GENARO CLIPID [id number] 08:57:00 Test Item Value Reference Range Interpretation Comments TRIGLYCERIDES (BEAKER) (test code = 56 mg/dL 540) CHOLESTEROL (BEAKER) (test code = 100 mg/dL 631) HDL CHOLESTEROL (BEAKER) (test code 34 mg/dL = 976) LDL CHOLESTEROL CALCULATED (BEAKER) 55 mg/dL (test code = 633) Triglyceride Reference Range: Low Risk <150 Borderline 150-199 High Risk 200-499 Very High Risk >=500Cholesterol Reference Range: Low Risk <200 Borderline 200-239 High Risk >240HDL Cholesterol Reference Range: Low Risk >=60 High Risk <40LDL Cholesterol Reference Range: Optimal <100 Near Optimal 100-129 Borderline 130-159 High 160-189 Very High >=190 Leather Belt Shaper ID - GENARO CBILIRUBIN, [id number] 08:57:00 Test Item Value Reference Range Interpretation Comments BILIRUBIN DIRECT (BEAKER) (test 0.9 mg/dL 0.1-0.5 H code = 706) Leather Belt Shaper ID - GENARO CGAMMA GLUTAMYL TRANSFERASE (GGT)2020-04-06 08:57:00 Test Item Value Reference Range Interpretation Comments GAMMA GLUTAMYL TRANSFERASE (BEAKER) 46 U/L 9-64 (test code = 364) Leather Belt Shaper ID - GENARO [id number] 08:57:00 Test Item Value Reference Range Interpretation Comments ETHANOL (BEAKER) (test code = 400) < mg/dL <=10 Leather Belt Shaper ID - GENARO CCBC W/PLT COUNT & AUTO [id number] 08:56:00 Test Item Value Reference Range Interpretation Comments WHITE BLOOD CELL COUNT (BEAKER) 4.1 K/ L 3.5-10.5 (test code = 775) RED BLOOD CELL COUNT (BEAKER) 2.07 M/ L 4.63-6.08 L (test code = 761) HEMOGLOBIN (BEAKER) (test code = 6.9 GM/DL 13.7-17.5 L 410) HEMATOCRIT (BEAKER) (test code = 21.1 % 40.1-51.0 L 411) MEAN CORPUSCULAR VOLUME (BEAKER) 101.9 fL 79.0-92.2 H (test code = 753) MEAN CORPUSCULAR HEMOGLOBIN 33.3 pg 25.7-32.2 H (BEAKER) (test code = 751) MEAN CORPUSCULAR HEMOGLOBIN CONC 32.7 GM/DL 32.3-36.5 (BEAKER) (test code = 752) RED CELL DISTRIBUTION WIDTH 17.8 % 11.6-14.4 H (BEAKER) (test code = 412) PLATELET COUNT (BEAKER) (test code 62 K/CU MM 150-450 L = 756) MEAN PLATELET VOLUME (BEAKER) 10.5 fL 9.4-12.4 (test code = 754) NUCLEATED RED BLOOD CELLS (BEAKER) 0 /100 WBC 0-0 (test code = 413) NEUTROPHILS RELATIVE PERCENT 78 % (BEAKER) (test code = 429) LYMPHOCYTES RELATIVE PERCENT 14 % (BEAKER) (test code = 430) MONOCYTES RELATIVE PERCENT 6 % (BEAKER) (test code = 431) EOSINOPHILS RELATIVE PERCENT 2 % (BEAKER) (test code = 432) BASOPHILS RELATIVE PERCENT 0 % (BEAKER) (test code = 437) NEUTROPHILS ABSOLUTE COUNT 3.20 K/ L 1.78-5.38 (BEAKER) (test code = 670) LYMPHOCYTES ABSOLUTE COUNT 0.58 K/ L 1.32-3.57 L (BEAKER) (test code = 414) MONOCYTES ABSOLUTE COUNT (BEAKER) 0.24 K/ L 0.30-0.82 L (test code = 415) EOSINOPHILS ABSOLUTE COUNT 0.06 K/ L 0.04-0.54 (BEAKER) (test code = 416) BASOPHILS ABSOLUTE COUNT (BEAKER) 0.01 K/ L 0.01-0.08 (test code = 417) IMMATURE GRANULOCYTES-RELATIVE 1 % 0-1 PERCENT (BEAKER) (test code = 2801) Urinalysis w/Tsvfyajqmgz2436-27-69 08:49:00 Test Item Value Reference Range Interpretation Comments Color, UA (test code = Yellow 5778-6) Clarity, UA (test code Clear = 5767-9) Specific Rush, UA 1.014 1.001-1.035 (test code = 5811-5) pH, UA (test code = 5.0 5.0-8.0 5803-2) Protein, UA (test code Negative Negative = 73425-5) Glucose, UA (test code Negative Negative = 365) Ketones, UA (test code Negative Negative = 2514-8) Bilirubin, UA (test Negative Negative code = 24068-9) Blood, UA (test code = Negative Negative 94644-8) Nitrite, UA (test code Negative Negative = 5802-4) Leukocytes, UA (test Negative Negative code = 5799-2) Urobilinogen, UA (test 0.2 mg/dL 0.2-1 code = 61957-7) RBC, UA (test code = 0 /HPF 78822-0) WBC, UA (test code = 2 /HPF 5821-4) Squam Epithel, UA (test <1 /HPF code = 16982-8) Hyaline Casts, UA (test 3 /LPF code = 52452-4) Specimen Source (test code = 2795) LATRELL (test code = LATRELL) Leather Belt Shaper ID - [auto]Leather Belt Shaper ID - tech [facility] CenterURINALYSIS W/ [id number] 08:49:00 Test Item Value Reference Range Interpretation Comments COLOR (BEAKER) (test code = 470) Yellow CLARITY (BEAKER) (test code = 469) Clear SPECIFIC GRAVITY UA (BEAKER) (test 1.014 1.001-1.035 code = 468) PH UA (BEAKER) (test code = 467) 5.0 5.0-8.0 PROTEIN UA (BEAKER) (test code = Negative Negative 464) GLUCOSE UA (BEAKER) (test code = Negative Negative 365) KETONES UA (BEAKER) (test code = Negative Negative 371) BILIRUBIN UA (BEAKER) (test code = Negative Negative 462) BLOOD UA (BEAKER) (test code = 461) Negative Negative NITRITE UA (BEAKER) (test code = Negative Negative 465) LEUKOCYTE ESTERASE UA (BEAKER) Negative Negative (test code = 466) UROBILINOGEN UA (BEAKER) (test code 0.2 mg/dL 0.2-1.0 = 463) RBC UA (BEAKER) (test code = 519) 0 /HPF WBC UA (BEAKER) (test code = 520) 2 /HPF SQUAMOUS EPITHELIAL (BEAKER) (test < /HPF code = 516) HYALINE CASTS (BEAKER) (test code = 3 /LPF 514) SOURCE(BEAKER) (test code = 2795) Leather Belt Shaper ID - [auto]Leather Belt Shaper ID - [id number] 08:48:00 Test Item Value Reference Range Interpretation Comments PARTIAL THROMBOPLASTIN TIME 33.4 seconds 22.5-36.0 (BEAKER) (test code = 760) [id number] 08:48:00 Test Item Value Reference Range Interpretation Comments FIBRINOGEN LEVEL (BEAKER) (test 163 mg/dl 225-434 L code = 658) PROTHROMBIN [id number] 08:47:00 Test Item Value Reference Range Interpretation Comments PROTIME (BEAKER) (test code = 18.5 seconds 11.9-14.2 H 759) INR (BEAKER) (test code = 370) 1.59 <=5.90 Effective 11/26/2018: PT Reference Range ChangeNew: 11.9-14.2 Previous: 11.7- 14.7RECOMMENDED COUMADIN/WARFARIN INR THERAPY RANGESSTANDARD DOSE: 2.0-3.0 Includes: PROPHYLAXIS for venous thrombosis, systemic embolization; TREATMENT for venous thrombosis and/or pulmonary embolus.HIGH RISK: Target INR is2.5-3.5 for patients wiht mechanical heart valves.Calcium, [id number] 08:32:00 Test Item Value Reference Range Interpretation Comments Calcium, Ion (test code = 1993-) 1.15 mmol/L 1.12-1.27 pH, Blood (test code = 13500-8) 7.33 [facility] CenterCALCIUM, [id number] 08:32:00 Test Item Value Reference Range Interpretation Comments CALCIUM IONIZED (BEAKER) (test 1.15 mmol/L 1.12-1.27 code = 698) PH, BLOOD (BEAKER) (test code = 7.33 1810) TACROLIMUS [id number] 08:39:00 Test Item Value Reference Range Interpretation Comments TACROLIMUS BLOOD (BEAKER) (test 8.3 ng/mL 10.0-20.0 L code = 657) Leather Belt Shaper ID - RMAlpha fetoprotein (AFP), tumor [id number] 19:02:00 Test Item Value Reference Range Interpretation Comments Alpha-Fetoprotein (test code 3.0 ng/mL <10.0 = 1834-1) LATRELL (test code = LATRELL) Leather Belt Shaper ID - BS Lab Interpretation (test Normal code = 74580-2) [facility] CenterALPHA FETOPROTEIN (AFP), TUMOR [id number] 19:02:00 Test Item Value Reference Range Interpretation Comments ALPHA-FETOPROTEIN (BEAKER) (test 3.0 ng/mL <10.0 code = 1094) Leather Belt Shaper ID - BSBASIC METABOLIC [id number] 17:37:00 Test Item Value Reference Range Interpretation Comments SODIUM (BEAKER) 143 meq/L 136-145 (test code = 381) POTASSIUM (BEAKER) 4.4 meq/L 3.5-5.1 (test code = 379) CHLORIDE (BEAKER) 111 meq/L 98-107 H (test code = 382) CO2 (BEAKER) (test 22 meq/L 22-29 code = 355) BLOOD UREA NITROGEN 39 mg/dL 7-21 H (BEAKER) (test code = 354) CREATININE (BEAKER) 3.49 mg/dL 0.57-1.25 H (test code = 358) GLUCOSE RANDOM 104 mg/dL 70-105 (BEAKER) (test code = 652) CALCIUM (BEAKER) 8.1 mg/dL 8.4-10.2 L (test code = 697) EGFR (BEAKER) (test 18 mL/min/1.73 ESTIMA ROBERTA GFR IS code = 1092) sq m NOT ACCURATE CREATININE CLEARANCE IN PREDICTING GLOMERULAR FILTRATION RATE . ESTIMATED GFR I S NOT APPLICABLE FOR DIALYSIS PATIEN TS. Leather Belt Shaper ID - BSSpecimen slightly ictericHEPATIC FUNCTION [id number] 17:32:00 Test Item Value Reference Range Interpretation Comments TOTAL PROTEIN (BEAKER) (test code = 4.8 gm/dL 6.0-8.3 L 770) ALBUMIN (BEAKER) (test code = 1145) 3.3 g/dL 3.5-5.0 L BILIRUBIN TOTAL (BEAKER) (test code 2.9 mg/dL 0.2-1.2 H = 377) BILIRUBIN DIRECT (BEAKER) (test 1.4 mg/dL 0.1-0.5 H code = 706) ALKALINE PHOSPHATASE (BEAKER) (test 201 U/L 40-150 H code = 346) AST (SGOT) (BEAKER) (test code = 35 U/L 5-34 H 353) ALT (SGPT) (BEAKER) (test code = 25 U/L 6-55 347) Leather Belt Shaper ID - BSSpecimen slightly ictericCBC W/PLT COUNT & AUTO DIFFERENTIAL 2020-03-09 15:54:00 Test Item Value Reference Range Interpretation Comments WHITE BLOOD CELL COUNT (BEAKER) 4.8 K/ L 3.5-10.5 (test code = 775) RED BLOOD CELL COUNT (BEAKER) 2.36 M/ L 4.63-6.08 L (test code = 761) HEMOGLOBIN (BEAKER) (test code = 7.9 GM/DL 13.7-17.5 L 410) HEMATOCRIT (BEAKER) (test code = 24.0 % 40.1-51.0 L 411) MEAN CORPUSCULAR VOLUME (BEAKER) 101.7 fL 79.0-92.2 H (test code = 753) MEAN CORPUSCULAR HEMOGLOBIN 33.5 pg 25.7-32.2 H (BEAKER) (test code = 751) MEAN CORPUSCULAR HEMOGLOBIN CONC 32.9 GM/DL 32.3-36.5 (BEAKER) (test code = 752) RED CELL DISTRIBUTION WIDTH 17.4 % 11.6-14.4 H (BEAKER) (test code = 412) PLATELET COUNT (BEAKER) (test code 73 K/CU MM 150-450 L = 756) MEAN PLATELET VOLUME (BEAKER) 10.2 fL 9.4-12.4 (test code = 754) NUCLEATED RED BLOOD CELLS (BEAKER) 0 /100 WBC 0-0 (test code = 413) NEUTROPHILS RELATIVE PERCENT 69 % (BEAKER) (test code = 429) LYMPHOCYTES RELATIVE PERCENT 19 % (BEAKER) (test code = 430) MONOCYTES RELATIVE PERCENT 8 % (BEAKER) (test code = 431) EOSINOPHILS RELATIVE PERCENT 2 % (BEAKER) (test code = 432) BASOPHILS RELATIVE PERCENT 1 % (BEAKER) (test code = 437) NEUTROPHILS ABSOLUTE COUNT 3.36 K/ L 1.78-5.38 (BEAKER) (test code = 670) LYMPHOCYTES ABSOLUTE COUNT 0.94 K/ L 1.32-3.57 L (BEAKER) (test code = 414) MONOCYTES ABSOLUTE COUNT (BEAKER) 0.39 K/ L 0.30-0.82 (test code = 415) EOSINOPHILS ABSOLUTE COUNT 0.10 K/ L 0.04-0.54 (BEAKER) (test code = 416) BASOPHILS ABSOLUTE COUNT (BEAKER) 0.03 K/ L 0.01-0.08 (test code = 417) IMMATURE GRANULOCYTES-RELATIVE 0 % 0-1 PERCENT (BEAKER) (test code = 2801) PROTHROMBIN [id number] 15:49:00 Test Item Value Reference Range Interpretation Comments PROTIME (BEAKER) (test code = 18.3 seconds 11.9-14.2 H 759) INR (BEAKER) (test code = 370) 1.56 <=5.90 Effective 11/26/2018: PT Reference Range ChangeNew: 11.9-14.2 Previous: 11.7- 14.7RECOMMENDED COUMADIN/WARFARIN INR THERAPY RANGESSTANDARD DOSE: 2.0-3.0 Includes: PROPHYLAXIS for venous thrombosis, systemic embolization; TREATMENT for venous thrombosis and/or pulmonary embolus.HIGH RISK: Target INR is2.5-3.5 for patients wiht mechanical heart valves.CMV PCR, [id number] 19:30:00 Test Item Value Reference Range Interpretation Comments CMV VIRAL LOAD - POSITIVE Se e Scanned Report. (BEAKER) (test code = 1557) CMV VIRAL LOAD - NEGATIVE Se e Scanned Report. (BEAKER) (test code = 2558) CMV PCR, [id number] 19:30:00CMV DNA Viral LoadComment: See Scanned Report.[facility] (ANY)CMV DNA Viral LoadComment: See Scanned Report.[facility] (ANY)[facility] CenterBASI METABOLIC [id number] 14:13:00 Test Item Value Reference Range Interpretation Comments SODIUM (BEAKER) 142 meq/L 136-145 (test code = 381) POTASSIUM (BEAKER) 4.5 meq/L 3.5-5.1 (test code = 379) CHLORIDE (BEAKER) 109 meq/L 98-107 H (test code = 382) CO2 (BEAKER) (test 20 meq/L 22-29 L code = 355) BLOOD UREA NITROGEN 58 mg/dL 7-21 H (BEAKER) (test code = 354) CREATININE (BEAKER) 5.58 mg/dL 0.57-1.25 H (test code = 358) GLUCOSE RANDOM 102 mg/dL 70-105 (BEAKER) (test code = 652) CALCIUM (BEAKER) 8.1 mg/dL 8.4-10.2 L (test code = 697) EGFR (BEAKER) (test 10 mL/min/1.73 ESTIMA ROBERTA GFR IS code = 1092) sq m NOT ACCURATE CREATININE CLEARANCE IN PREDICTING GLOMERULAR FILTRATION RATE . ESTIMATED GFR I S NOT APPLICABLE FOR DIALYSIS PATIEN TS. Leather Belt Shaper ID - GENARO CTACROLIMUS [id number] 10:37:00 Test Item Value Reference Range Interpretation Comments TACROLIMUS BLOOD (BEAKER) (test 8.3 ng/mL 10.0-20.0 L code = 657) Leather Belt Shaper ID - AAHAMIDBASIC METABOLIC [id number] 07:48:00 Test Item Value Reference Range Interpretation Comments SODIUM (BEAKER) 140 meq/L 136-145 (test code = 381) POTASSIUM (BEAKER) 4.4 meq/L 3.5-5.1 (test code = 379) CHLORIDE (BEAKER) 111 meq/L 98-107 H (test code = 382) CO2 (BEAKER) (test 18 meq/L 22-29 L code = 355) BLOOD UREA NITROGEN 58 mg/dL 7-21 H (BEAKER) (test code = 354) CREATININE (BEAKER) 5.98 mg/dL 0.57-1.25 H (test code = 358) GLUCOSE RANDOM 88 mg/dL 70-105 (BEAKER) (test code = 652) CALCIUM (BEAKER) 7.3 mg/dL 8.4-10.2 L (test code = 697) EGFR (BEAKER) (test 10 mL/min/1.73 ESTIMA ROBERTA GFR IS code = 1092) sq m NOT ACCURATE CREATININE CLEARANCE IN PREDICTING GLOMERULAR FILTRATION RATE . ESTIMATED GFR I S NOT APPLICABLE FOR DIALYSIS PATIEN TS. Leather Belt Shaper ID - GENARO [id number] 07:35:00 Test Item Value Reference Range Interpretation Comments MAGNESIUM (BEAKER) (test code = 1.9 mg/dL 1.6-2.6 627) Leather Belt Shaper ID - GENARO CBASIC METABOLIC [id number] 14:54:00 Test Item Value Reference Range Interpretation Comments SODIUM (BEAKER) 141 meq/L 136-145 (test code = 381) POTASSIUM (BEAKER) 5.0 meq/L 3.5-5.1 (test code = 379) CHLORIDE (BEAKER) 112 meq/L 98-107 H (test code = 382) CO2 (BEAKER) (test 19 meq/L 22-29 L code = 355) BLOOD UREA NITROGEN 56 mg/dL 7-21 H (BEAKER) (test code = 354) CREATININE (BEAKER) 6.16 mg/dL 0.57-1.25 H (test code = 358) GLUCOSE RANDOM 175 mg/dL 70-105 H (BEAKER) (test code = 652) CALCIUM (BEAKER) 7.4 mg/dL 8.4-10.2 L (test code = 697) EGFR (BEAKER) (test 9 mL/min/1.73 ESTIMAT ED GFR IS code = 1092) sq m NOT ACCURATE CREATININE CLEARANCE IN PREDICTING GLOMERULAR FILTRATION RATE . ESTIMATED GFR I S NOT APPLICABLE FOR DIALYSIS PATIEN TS. Leather Belt Shaper ID - RENETTAACROLIMUS [id number] 09:59:00 Test Item Value Reference Range Interpretation Comments TACROLIMUS BLOOD (BEAKER) (test 11.6 ng/mL 10.0-20.0 code = 657) Leather Belt Shaper ID - SAMY ZEEITAMIN D, [id number] 08:26:00 Test Item Value Reference Range Interpretation Comments VITAMIN D 25-OH (BEAKER) (test code 8.5 ng/mL 6.6-49.9 = 2764) Effective 04/10/2017: Reference Range ChangeNew: 6.6-49.9 ng/mL Previous: 13.0-47.8 ng/mLRecommended Vitamin D Target Range: 30.0-40.0 ng/mLOperator ID - NTPHEPATIC FUNCTION [id number] 08:00:00 Test Item Value Reference Range Interpretation Comments TOTAL PROTEIN (BEAKER) (test code = 4.1 gm/dL 6.0-8.3 L 770) ALBUMIN (BEAKER) (test code = 1145) 2.9 g/dL 3.5-5.0 L BILIRUBIN TOTAL (BEAKER) (test code 1.4 mg/dL 0.2-1.2 H = 377) BILIRUBIN DIRECT (BEAKER) (test 0.9 mg/dL 0.1-0.5 H code = 706) ALKALINE PHOSPHATASE (BEAKER) (test 223 U/L 40-150 H code = 346) AST (SGOT) (BEAKER) (test code = 41 U/L 5-34 H 353) ALT (SGPT) (BEAKER) (test code = 40 U/L 6-55 347) Leather Belt Shaper ID - [facility] (Hemogram only)2020-02-25 07:01:00 Test Item Value Reference Range Interpretation Comments WBC (test code = 6690-2) 2.8 3.5- 10.5 K/L L RBC (test code = 789-8) 2.21 4.63- 6.08 M/L L MCHC (test code = 786-4) 32.6 32.3- 36.5 GM/DL L Hematocrit (test code = 4544-3) 22.4 % 40.1-51 L MCV (test code = 787-2) 101.4 fL 79-92.2 H MCH (test code = 785-6) 33.0 pg 25.7-32.2 H RDW (test code = 788-0) 17.2 % 11.6-14.4 H Platelets (test code = 777-3) 48 150- 450 K/CU MM L MPV (test code = 87234-1) 10.6 fL 9.4-12.4 nRBC (test code = 413) 0 0- 0 /100 WBC Lab Interpretation (test code = Abnormal 06575-3) [facility] (HEMOGRAM ONLY)2020-02-25 07:01:00 Test Item Value Reference Range Interpretation Comments WHITE BLOOD CELL COUNT (BEAKER) 2.8 K/ L 3.5-10.5 L (test code = 775) RED BLOOD CELL COUNT (BEAKER) 2.21 M/ L 4.63-6.08 L (test code = 761) HEMOGLOBIN (BEAKER) (test code = 7.3 GM/DL 13.7-17.5 L 410) HEMATOCRIT (BEAKER) (test code = 22.4 % 40.1-51.0 L 411) MEAN CORPUSCULAR VOLUME (BEAKER) 101.4 fL 79.0-92.2 H (test code = 753) MEAN CORPUSCULAR HEMOGLOBIN 33.0 pg 25.7-32.2 H (BEAKER) (test code = 751) MEAN CORPUSCULAR HEMOGLOBIN CONC 32.6 GM/DL 32.3-36.5 (BEAKER) (test code = 752) RED CELL DISTRIBUTION WIDTH 17.2 % 11.6-14.4 H (BEAKER) (test code = 412) PLATELET COUNT (BEAKER) (test code 48 K/CU MM 150-450 L = 756) MEAN PLATELET VOLUME (BEAKER) 10.6 fL 9.4-12.4 (test code = 754) NUCLEATED RED BLOOD CELLS (BEAKER) 0 /100 WBC 0-0 (test code = 413) BASIC METABOLIC [id number] 07:01:00 Test Item Value Reference Range Interpretation Comments SODIUM (BEAKER) 140 meq/L 136-145 (test code = 381) POTASSIUM (BEAKER) 5.3 meq/L 3.5-5.1 H (test code = 379) CHLORIDE (BEAKER) 113 meq/L 98-107 H (test code = 382) CO2 (BEAKER) (test 18 meq/L 22-29 L code = 355) BLOOD UREA NITROGEN 55 mg/dL 7-21 H (BEAKER) (test code = 354) CREATININE (BEAKER) 6.06 mg/dL 0.57-1.25 H (test code = 358) GLUCOSE RANDOM 94 mg/dL 70-105 (BEAKER) (test code = 652) CALCIUM (BEAKER) 7.6 mg/dL 8.4-10.2 L (test code = 697) EGFR (BEAKER) (test 9 mL/min/1.73 ESTIMAT ED GFR IS code = 1092) sq m NOT ACCURATE CREATININE CLEARANCE IN PREDICTING GLOMERULAR FILTRATION RATE . ESTIMATED GFR I S NOT APPLICABLE FOR DIALYSIS PATIEN TS. Leather Belt Shaper ID - [id number] 06:49:00 Test Item Value Reference Range Interpretation Comments MAGNESIUM (BEAKER) (test code = 2.0 mg/dL 1.6-2.6 627) Leather [employer] Shaper ID - NTPPTH, [id number] 06:44:00 Test Item Value Reference Range Interpretation Comments PTH (test code = 2731-8) 425.2 pg/mL 8.5-72.5 H LATRELL (test code = LATRELL) Leather Belt Shaper ID - NTP Lab Interpretation (test Abnormal code = 52571-8) [facility] [id number] 06:44:00 Test Item Value Reference Range Interpretation Comments PARATHYROID HORMONE INTACT 425.2 pg/mL 8.5-72.5 H (KATELYNN) (test code = 577) Leather Belt Shaper ID - NTPU/S, ABDOMINAL, WITH [id number] 23:24:00Referring: Dr. Yary Eastman/ [facility] for exam:->HCC screening in cirrhotic patient and TIPS evaluation (rule out thrombosis)FINAL REPORT Exam: U/S, ABDOMINAL, WITH DOPPLER Clinical History: HCC screening in cirrhotic patient and TIPS evaluation (rule out thrombosis) Discussion: Sonographic evaluation of the abdomen was performed with Doppler. Comparison is made to right upper quadrant ultrasound with Doppler 08/25/2019 Liver: 9.7 cm in length at the right midclavicular line. Cirrhotic morphology. 9 x 8 x 8 mm cyst in the right hepatic lobe. TIPS stent noted. Main portal vein diameter 1.6 cm. Bi liary tree: Common duct 6 mm. No intrahepatic biliary ductal dilatation. Gallbladder: Contracted.Cholelithiasis. No wall thickening. No pericholecystic fluid. Negative sonographic Baltazar's sign. Pancreas: Partially obscured by bowel gas but the visualized portions are unremarkable. Ascites: Small right abdominal ascites Spleen: 15.8 cm in length. Kidneys: Right kidney 8.5 x 4 x 3.5 cm with cortical thickness of 0.9 cm. Left kidney 9.3 x 4.5 x 4 cm with cortical thickness of 1.3 cm. Normal cortical echogenicity. No shadowing calculus, no hydronephrosis. IVC/Aorta: Segments partially seen. Unremarkable. Color and spectral Doppler evaluation of the hepatic vasculature: The main portal vein and branches are patent and demonstrate appropriate directional flow. The peak systolic velocity in the main portal vein is 26 cm/s. The TIPS is patent without a velocity gradient to suggest thrombosis or stenosis. The peak systolic velocities in the proximal, mid and distal TIPS are 120 cm/s,118 cm/s and 99 cm/s respectively. The proper, right and left hepatic arteries are patent with normal waveforms. The resistive indices in the proper, right and left hepatic arteries are 0.7, 0.8 and 0.8 respectively. The hepatic confluence, main hepatic vein and branches are patent with normal waveforms. The splenic vein at the pancreatic head and tail are patent with normal waveforms. Impression:Cirrhosis and evidence of portal hypertension. Small liver cyst. Please note that liver protocol CT orMRI is more sensitive for the evaluation of HCC. Patent TIPS. No evidence of thrombosis. Elevated resistive indices in the right and left hepatic arteries. Cholelithiasis without sonographic evidence of acute cholecystitis. Small abdominal ascites. Signed: David Yee MDReport Verified Date/Time: 02/24/2020 23:24:17 US abdominal with [id number] 23:24:00Interface, External Ris In - 02/24/2020 11:26 PM CDTFINAL REPORT Exam: U/S, ABDOMINAL, WITH DOPPLER Clinical History: HCC screening in cirrhotic patient and TIPS evaluation (rule out thrombosis) Discussion: Sonographic evaluation of the abdomen was performed with Doppler. Comparison is made to right upper quadrant ultrasound with Doppler 08/25/2019 Liver: 9.7 cm in length atthe right midclavicular line. Cirrhotic morphology. 9 x 8 x 8 mm cyst in the right hepatic lobe. TIPS stent noted. Main portal vein diameter 1.6 cm. Biliary tree: Common duct 6 mm. No intrahepatic biliary ductal dilatation. Gallbladder: Contracted. Cholelithiasis. No wall thickening. No pericholecystic fluid. Negative sonographic Baltazar's sign. Pancreas: Partially obscured by bowel gas but thevisualized portions are unremarkable. Ascites: Small right abdominal ascites Spleen: 15.8 cm in l ength. Kidneys: Right kidney 8.5 x 4 x 3.5 cm with cortical thickness of 0.9 cm. Left kidney 9.3x 4.5 x 4 cm with cortical thickness of 1.3 cm. Normal cortical echogenicity. No shadowing calculus, no hydronephrosis. IVC/Aorta: Segments partially seen. Unremarkable. Color and spectral Dopplerevaluation of the hepatic vasculature: The main portal vein and branches are patent and demonstrate appropriate directional flow. The peak systolic velocity in the main portal vein is 26 cm/s. The TIPSis patent without a velocity gradient to suggest thrombosis or stenosis. The peak systolic velocities in the proximal, mid and distal TIPS are 120 cm/s, 118 cm/s and 99 cm/s respectively. The proper, right and left hepatic arteries are patent with normal waveforms. The resistive indices in the proper, right and left hepatic arteries are 0.7, 0.8 and 0.8 respectively. The hepatic confluence, main hepatic vein and branches are patent with normal waveforms. The splenic vein at the pancreatic head and tail are patent with normal waveforms. Impression:Cirrhosis and evidence of portal hypertension. Small liver cyst. Please note that liver protocol CT or MRI is more sensitive for the evaluation of HCC.Patent TIPS. No evidence of thrombosis. Elevated resistive indices in the right and left hepatic arteries. Cholelithiasis without sonographic evidence of acute cholecystitis. Small abdominal ascites. Signed: David Yeeeport Verified Date/Time: 02/24/2020 23:24:[address] Echo W/Doppler(CW/PW/Color) 2020-02-24 20:08:32Ejection FractionSLE ECHO HEARTLAB MKCKESSON CPACSInterface, External Ris In - 02/24/2020 8:08 PM CDTTransthoracic Echocardiography Report (TTE) Demographics Patient Name JOEL DESOUZA Date of Study 02/24/2020 MELLY Gender Male Visit Number [id number] Race Unknown Room Number 1230 Number Date of 1955 Referring Maine Hernandez Physician Age 64 year(s) Licensed Clinician Nallely Jason RDCS Electrician [employer] Concepcion Lion RDCS Interpreting Physician KENDALL Devries Procedure Type of Study TTE procedure:2DECHO W DOPPLER(CW/PW/COLOR) (Routine) Indications:Known or suspected cardiomyopathy.Clinical HistoryAKI, COPD, PneumoniaLung transplant (12/2012)HGB 7.3HCT 23.0 %Height: 66 inches Weight: 53.07 kg (117 lbs) BSA: 1.59 m^2 BMI: 18.88 kg/m^2HR: 60 bpm BP: 149/65 mmHg Summary 1. LV is mildly enlarged. All segments contract normally. LVEF is normal (>60%). 2. Normal RV size and function. 3. Estimated peak systolic PA pressure is 20-25 mmHg (normal range) . 4. E/e' is normal c/w normal left atrial pressure Previous Study In comparison with the priorexam on 01/20/2019 there are no significant changes. [...] Ventricle The right ventricular chamber size and systolicfunction are within normal limits. Right Atrium RA [...] diameter) is normal . Pericardium No pericardial effusion is visualized. Ascites is visualized. IVC/SVC/PA/PV/Pleural The estimated RA pressure by IVC dynamics 0- 5mmHg . Chambers/Structures Left Atrium LA Volume: 106.29 [...] 1.88 cm Aorta Ao Root S of Luz Maria.: 3.65 cm Doppler/Quantitative Measurements Mitral Valve MV [...] TR Velocity: 2.05 m/s TR Gradient: 16.76 mmHgCHI Pioneers [facility] HospitalCHLORIDE, RANDOM [id number] 18:44:00 Test Item Value Reference Range Interpretation Comments CHLORIDE URINE (BEAKER) (test code 130 meq/L = 682) Reference Range: No NormalsOperator ID - BSCREATININE, RANDOM [id number] 18:44:00 Test Item Value Reference Range Interpretation Comments CREATININE URINE (BEAKER) (test 27.5 mg/dL code = 375) Reference Range: No NormalsOperator ID - BSPOTASSIUM, RANDOM [id number] 18:44:00 Test Item Value Reference Range Interpretation Comments POTASSIUM URINE (BEAKER) (test 26.2 meq/L code = 195) Reference Range: No NormalsOperator ID - BSSODIUM, RANDOM [id number] 18:44:00 Test Item Value Reference Range Interpretation Comments SODIUM URINE (BEAKER) (test code = 102 meq/L 243) Reference Range: No NormalsOperator ID - BSUREA NITROGEN, RANDOM [id number] 18:44:00 Test Item Value Reference Range Interpretation Comments UREA NITROGEN URINE (BEAKER) (test 122 mg/dL code = 538) Reference Range: No NormalsOperator ID - BSBLOOD GAS, [id number] 18:33:00 Test Item Value Reference Range Interpretation Comments PH VENOUS (BEAKER) (test code = 7.30 7.32-7.42 L 701) PCO2 VENOUS (BEAKER) (test code = 37 mmHg 41-51 L 755) PO2 VENOUS (BEAKER) (test code = 60 mmHg 25-40 H 702) O2 SATURATION VENOUS (BEAKER) 88.7 % 40.0-70.0 H (test code = 703) HCO3 VENOUS (BEAKER) (test code = 18 mmol/L 21-29 L 705) BASE EXCESS VENOUS (BEAKER) (test -8.0 mmol/L -2.0-3.0 L code = 704) PATIENT TEMPERATURE (BEAKER) 37.0 C (test code = 1818) FIO2 (BEAKER) (test code = 1819) 21.0 % AB Specifities [id number] 14:52:00 Test Item Value Reference Range Interpretation Comments DSA A AG1 (test code 03:01 = 3253) DSA B AG1 (test code 44:02 = 3257) DSA B AG2 (test code 58:02 = 3259) DSA C AG1 (test code 06:02 = 3261) DSA C AG2 (test code 16:01 = 3263) DSA DR AG1 (test code 07:01 = 3265) DSA DR AG2 (test code 03:02 = 3267) DSA DRw AG1 (test 4*01:01 code = 3269) DSA DRw AG2 (test 3*01:01 code = 3271) DSA DQA AG1 (test 02:01 code = 3277) DSA DQA AG2 (test 04:01 code = 3279) DSA DQB AG1 (test 04:02 code = 3273) DSA DQB AG2 (test 02:02 code = 3275) DSA DPA AG1 (test 02:01 code = 3285) DSA DPA AG2 (test 02:02 code = 3287) DSA DPB AG1 (test 01: code = 3281) DSA DPB AG2 (test 11:01 code = 3283) AB Specificity DSA NO DONOR SPECIFIC Comment (test code = ANTIBODY DETECTED WITH 3452) MFIs > 1000; If a specific bead is not available on single antigen panel and MFIs > 1000, results reflect the average of beads with serological equivalence. LATRELL (test code = LATRELL) Disclaimer: This test was developed and its performance characteristics determined by the [facility]. It has not been cleared or approved by the U.S. Food and Drug Administration. The FDA has determined that such clearance or approval is not necessary. This test is used for clinical purposes. It should not be regarded as investigational or for research. This laboratory is certified under the Clinical Laboratory Improvement Amendments of 1988 (CLIA-88) as qualified to perform high complexity clinical laboratory testing. [facility] [id number] 14:47:00 Test Item Value Reference Range Interpretation Comments AB Specificity Class NO CLASS II ANTIBODY II (test code = 3458) DETECTED WITH MFIs > 1000 LATRELL (test code = LATRELL) Disclaimer: This test was developed and its performance characteristics determined by the [facility]. It has not been cleared or approved by the U.S. Food and Drug Administration. The FDA has determined that such clearance or approval is not necessary. This test is used for clinical purposes. It should not be regarded as investigational or for research. This laboratory is certified under the Clinical Laboratory Improvement Amendments of 1988 (CLIA-88) as qualified to perform high complexity clinical laboratory testing. [facility] SPE[facility] [id number] 14:46:00 Test Item Value Reference Range Interpretation Comments AB Specificity Class NO CLASS I ANTIBODY I (test code = 3457) DETECTED WITH MFIs > 1000 LATRELL (test code = LATRELL) Disclaimer: This test was developed and its performance characteristics determined by the [facility]. It has not been cleared or approved by the U.S. Food and Drug Administration. The FDA has determined that such clearance or approval is not necessary. This test is used for clinical purposes. It should not be regarded as investigational or for research. This laboratory is certified under the Clinical Laboratory Improvement Amendments of 1988 (CLIA-88) as qualified to perform high complexity clinical laboratory testing. [facility] METABOLIC [id number] 13:33:00 Test Item Value Reference Range Interpretation Comments SODIUM (BEAKER) 139 meq/L 136-145 (test code = 381) POTASSIUM (BEAKER) 5.0 meq/L 3.5-5.1 (test code = 379) CHLORIDE (BEAKER) 114 meq/L 98-107 H (test code = 382) CO2 (BEAKER) (test 18 meq/L 22-29 L code = 355) BLOOD UREA NITROGEN 53 mg/dL 7-21 H (BEAKER) (test code = 354) CREATININE (BEAKER) 5.82 mg/dL 0.57-1.25 H (test code = 358) GLUCOSE RANDOM 84 mg/dL 70-105 (BEAKER) (test code = 652) CALCIUM (BEAKER) 7.5 mg/dL 8.4-10.2 L (test code = 697) EGFR (BEAKER) (test 10 mL/min/1.73 ESTIMA ROBERTA GFR IS code = 1092) sq m NOT ACCURATE CREATININE CLEARANCE IN PREDICTING GLOMERULAR FILTRATION RATE . ESTIMATED GFR I S NOT APPLICABLE FOR DIALYSIS PATIEN TS. Leather Belt Shaper ID - GENARO CTACROLIMUS [id number] 11:30:00 Test Item Value Reference Range Interpretation Comments TACROLIMUS BLOOD (BEAKER) (test 13.2 ng/mL 10.0-20.0 code = 657) Leather Belt Shaper ID - [facility] METABOLIC [id number] 07:00:00 Test Item Value Reference Range Interpretation Comments SODIUM (BEAKER) 139 meq/L 136-145 (test code = 381) POTASSIUM (BEAKER) 5.6 meq/L 3.5-5.1 H (test code = 379) CHLORIDE (BEAKER) 116 meq/L 98-107 H (test code = 382) CO2 (BEAKER) (test 17 meq/L 22-29 L code = 355) BLOOD UREA NITROGEN 53 mg/dL 7-21 H (BEAKER) (test code = 354) CREATININE (BEAKER) 5.87 mg/dL 0.57-1.25 H (test code = 358) GLUCOSE RANDOM 79 mg/dL 70-105 (BEAKER) (test code = 652) CALCIUM (BEAKER) 7.3 mg/dL 8.4-10.2 L (test code = 697) EGFR (BEAKER) (test 10 mL/min/1.73 ESTIMA ROBERTA GFR IS code = 1092) sq m NOT ACCURATE CREATININE CLEARANCE IN PREDICTING GLOMERULAR FILTRATION RATE . ESTIMATED GFR I S NOT APPLICABLE FOR DIALYSIS PATIEN TS. Leather Belt Shaper ID - EDASIPROTHROMBIN [id number] 06:41:00 Test Item Value Reference Range Interpretation Comments PROTIME (KATELYNN) (test code = 19.0 seconds 11.9-14.2 H 759) INR (BENOLVIA) (test code = 370) 1.64 <=5.90 Effective 11/26/2018: PT Reference Range ChangeNew: 11.9-14.2 Previous: 11.7- 14.7RECOMMENDED COUMADIN/WARFARIN INR THERAPY RANGESSTANDARD DOSE: 2.0-3.0 Includes: PROPHYLAXIS for venous thrombosis, systemic embolization; TREATMENT for venous thrombosis and/or pulmonary embolus.HIGH RISK: Target INR is2.5-3.5 for patients wiht mechanical heart valves.U/S, RENAL, [id number] 01:22:00Referring: Dr. Yary Eastman/ [place] for exam:->NOHEMI on [id number] REPORT TECHNIQUE: Grayscale ultrasound of the kidneys and bladder with Doppler and spectral analysis. INDICATION: NOHEMI on CKD3. COMPARISON: 04/22/2019. FINDINGS: RIGHT KIDNEY: The right kidney is 8.7 x 3.9 x 4.5 cm. Cortical thickness is 0.9 cm. No solid mass lesions. No hydronephrosis. Renal artery and vein are patent. LEFT KIDNEY: The left kidney is 9.7 x 3.9 x 4.8 cm. Cortical thickness is 1.0 cm. No solid mass lesions. No hydronephrosis. Renal artery and vein are patent. BLADDER: Unremarkable. OTHER: Cirrhotic liver with perihepatic free fluid. IMPRESSION: 1. No acute abnormality of the kidneys. No hydronephrosis. 2. Mildly small right kidney unchanged compared to prior Signed: Ken Huertaeport Verified Date/Time: 02/24/2020 01:22:47 CREATININE, RANDOM [id number] 21:28:00 Test Item Value Reference Range Interpretation Comments CREATININE URINE (BEAKER) (test 82.9 mg/dL code = 375) Reference Range: No NormalsOperator ID - BSPROTEIN, RANDOM [id number] 21:28:00 Test Item Value Reference Range Interpretation Comments PROTEIN, URINE (BEAKER) (test code = 7 mg/dL 0-14 1569) Leather Belt Shaper ID - BSSODIUM, RANDOM [id number] 21:28:00 Test Item Value Reference Range Interpretation Comments SODIUM URINE (BEAKER) (test code = 67 meq/L 243) Reference Range: No NormalsOperator ID - BSURINALYSIS W/ [id number] 21:12:00 Test Item Value Reference Range Interpretation Comments COLOR (BEAKER) (test code = 470) Yellow CLARITY (BEAKER) (test code = 469) Clear SPECIFIC GRAVITY UA (BEAKER) (test 1.009 1.001-1.035 code = 468) PH UA (BEAKER) (test code = 467) 5.0 5.0-8.0 PROTEIN UA (BEAKER) (test code = Negative Negative 464) GLUCOSE UA (BEAKER) (test code = Negative Negative 365) KETONES UA (BEAKER) (test code = Negative Negative 371) BILIRUBIN UA (BEAKER) (test code = Negative Negative 462) BLOOD UA (BEAKER) (test code = 461) Negative Negative NITRITE UA (BEAKER) (test code = Negative Negative 465) LEUKOCYTE ESTERASE UA (BEAKER) Negative Negative (test code = 466) UROBILINOGEN UA (BEAKER) (test code 0.2 mg/dL 0.2-1.0 = 463) RBC UA (BEAKER) (test code = 519) < /HPF WBC UA (BEAKER) (test code = 520) 2 /HPF SQUAMOUS EPITHELIAL (BEAKER) (test < /HPF code = 516) CRYSTALS, URINE (BEAKER) (test code Rare = 1521) SOURCE(BEAKER) (test code = 2795) Leather Belt Shaper ID - [auto]Leather Belt Shaper ID - [id number] 19:00:00 Test Item Value Reference Range Interpretation Comments FERRITIN (BEAKER) (test code = 71.41 ng/mL 5.00-275.00 361) Leather Belt Shaper ID - BSVITAMIN B12 AND [id number] 19:00:00 Test Item Value Reference Range Interpretation Comments VITAMIN B12 (BEAKER) (test code = 633 pg/mL 213-816 774) FOLATE (BEAKER) (test code = 362) 16.00 ng/mL >=7.00 Leather Belt Shaper ID - BSB-TYPE NATRIURETIC FACTOR (BNP)2020-02-23 18:31:00 Test Item Value Reference Range Interpretation Comments B-TYPE NATRIURETIC PEPTIDE 1388 pg/mL 0-100 H (BEAKER) (test code = 700) Leather Belt Shaper ID - BSIRON, TIBC, % SAT. (WITHOUT FERRITIN)2020-02-23 18:24:00 Test Item Value Reference Range Interpretation Comments IRON (BEAKER) (test code = 547) 111.0 ug/dL 40.0-160.0 TOTAL IRON BINDING CAPACITY 214 ug/dL 250-450 L (BEAKER) (test code = 769) IRON % SATURATION (2) (BEAKER) 52 % 20-55 (test code = 2590) Leather Belt Shaper ID - BSBASIC METABOLIC [id number] 18:24:00 Test Item Value Reference Range Interpretation Comments SODIUM (BEAKER) 140 meq/L 136-145 (test code = 381) POTASSIUM (BEAKER) 4.8 meq/L 3.5-5.1 (test code = 379) CHLORIDE (BEAKER) 118 meq/L 98-107 H (test code = 382) CO2 (BEAKER) (test 12 meq/L 22-29 L code = 355) BLOOD UREA NITROGEN 51 mg/dL 7-21 H (BEAKER) (test code = 354) CREATININE (BEAKER) 5.84 mg/dL 0.57-1.25 H (test code = 358) GLUCOSE RANDOM 127 mg/dL 70-105 H (BEAKER) (test code = 652) CALCIUM (BEAKER) 7.6 mg/dL 8.4-10.2 L (test code = 697) EGFR (BEAKER) (test 10 mL/min/1.73 ESTIMA ROBERTA GFR IS code = 1092) sq m NOT ACCURATE CREATININE CLEARANCE IN PREDICTING GLOMERULAR FILTRATION RATE . ESTIMATED GFR I S NOT APPLICABLE FOR DIALYSIS PATIEN TS. Leather Belt Shaper ID - BSSARS-COV2/RT-PCR ([facility])2020-02-23 15:02:00 Test Item Value Reference Range Interpretation Comments SARS-COV2/RT-PCR (test code Negative Not Detected, Negative, = 8523209) See external report for linked test SARS-COV-2 PERFORMING LAB [facility] (test code = 4235284) Negative results do not preclude SARS-CoV-2 infection and should not be used as the sole basis for patient management decisions. Negative results must be combined with clinical observations, patient history, and epidemiological information. A false negative result may occur if a specimen is improperly collected, transported or handled.The limit of detection for this assay is 250 copies/mL.This SARS CoV-2 test is a rapid, real-time RT-PCR test intended for the qualitative detection of nucleic acid from SARS-CoV-2 in a nasopharyngeal swab specimen collected from individuals suspected of COVID-19 by their healthcare provider.This test has not been Food and Drug [...] is revoked under Section 564(g) of the Act.Fact Sheet for Healthcare Pro viders:https://www.Wisr.YupiCall/Documents/Xpert%20Xpress%20SARS%20CoV-2/Fact%20Sh eets/3023802%78MUFX-VKX-7%20HEALTHCARE%20PROVIDERS%20FACT%20SHEET.pdfFact Sheet for Healthcare Patients:https://www.BarEye.com/Documents/Xpert%20Xpress%20SARS%20CoV-2/Fact%20Sheets/3023801%20SARS-COV -2%20PATIENT%20FACT%20SHEET.pdfPerforming Laboratory:[facility], [place] [address]OLJJEQZVGH [id number] 12:46:00 Test Item Value Reference Range Interpretation Comments TACROLIMUS BLOOD (BEAKER) (test 18.3 ng/mL 10.0-20.0 code = 657) Leather Belt Shaper ID - RMRAD, CHEST, 2 [id number] 11:47:00Referring: Dr. Yary Eastman/ [place] for Exam:->s/p lung transplantFINAL REPORT INDICATION: s/p lung transplant COMPARISON: December 10, 2019 TECHNIQUE: Frontal and lateral views of the chest. FINDINGS: Lungs and pleura: Clear lungs. Small bilateraleffusions.Heart and mediastinum: Normal heart size. Unremarkable mediastinal contours.Osseous structures: No acute abnormality.Additional findings: Status post lung transplant. IMPRESSION: No acute intrathoracic abnormality. Signed: Fitz Fernandez Verified Date/Time: 02/23/2020 11:47:27 Reading Location: [facility] Radiology Reading Room Hemoglobin A1c 2020-02-23 11:44:00 Test Item Value Reference Range Interpretation Comments Hemoglobin A1C (test code = 4548-4) <3.8 4.3-6.1 L Lab Interpretation (test code = Abnormal 82404-0) [facility] [id number] 11:44:00 Test Item Value Reference Range Interpretation Comments HEMOGLOBIN A1C (BEAKER) (test code = < % 4.3-6.1 L 368) COMPREHENSIVE METABOLIC [id number] 11:14:00 Test Item Value Reference Range Interpretation Comments TOTAL PROTEIN 4.4 gm/dL 6.0-8.3 L (BEAKER) (test code = 770) ALBUMIN (BEAKER) 3.1 g/dL 3.5-5.0 L (test code = 1145) ALKALINE PHOSPHATASE 212 U/L 40-150 H (BEAKER) (test code = 346) BILIRUBIN TOTAL 1.2 mg/dL 0.2-1.2 (BEAKER) (test code = 377) SODIUM (BEAKER) (test 140 meq/L 136-145 code = 381) POTASSIUM (BEAKER) 5.3 meq/L 3.5-5.1 H (test code = 379) CHLORIDE (BEAKER) 115 meq/L 98-107 H (test code = 382) CO2 (BEAKER) (test 17 meq/L 22-29 L code = 355) BLOOD UREA NITROGEN 54 mg/dL 7-21 H (BEAKER) (test code = 354) CREATININE (BEAKER) 5.87 mg/dL 0.57-1.25 H (test code = 358) GLUCOSE RANDOM 108 mg/dL 70-105 H (BEAKER) (test code = 652) CALCIUM (BEAKER) 7.7 mg/dL 8.4-10.2 L (test code = 697) AST (SGOT) (BEAKER) 37 U/L 5-34 H (test code = 353) ALT (SGPT) (BEAKER) 38 U/L 6-55 (test code = 347) EGFR (BEAKER) (test 10 mL/min/1.73 ESTIMA ROBERTA GFR IS code = 1092) sq m NOT ACCURATE CREATININE CLEARANCE IN PREDICTING GLOMERULAR FILTRATION RATE . ESTIMATED GFR I S NOT APPLICABLE FOR DIALYSIS PATIEN TS. Leather Belt Shaper ID - [id number] 11:08:00 Test Item Value Reference Range Interpretation Comments PHOSPHORUS (BEAKER) (test code = 5.4 mg/dL 2.3-4.7 H 604) Leather Belt Shaper ID - [id number] 11:08:00 Test Item Value Reference Range Interpretation Comments MAGNESIUM (BEAKER) (test code = 2.3 mg/dL 1.6-2.6 627) Leather Belt Shaper ID - NTPCBC W/PLT COUNT & AUTO [id number] 10:57:00 Test Item Value Reference Range Interpretation Comments WHITE BLOOD CELL COUNT (BEAKER) 2.9 K/ L 3.5-10.5 L (test code = 775) RED BLOOD CELL COUNT (BEAKER) 2.24 M/ L 4.63-6.08 L (test code = 761) HEMOGLOBIN (BEAKER) (test code = 7.3 GM/DL 13.7-17.5 L 410) HEMATOCRIT (BEAKER) (test code = 23.0 % 40.1-51.0 L 411) MEAN CORPUSCULAR VOLUME (BEAKER) 102.7 fL 79.0-92.2 H (test code = 753) MEAN CORPUSCULAR HEMOGLOBIN 32.6 pg 25.7-32.2 H (BEAKER) (test code = 751) MEAN CORPUSCULAR HEMOGLOBIN CONC 31.7 GM/DL 32.3-36.5 L (BEAKER) (test code = 752) RED CELL DISTRIBUTION WIDTH 17.5 % 11.6-14.4 H (BEAKER) (test code = 412) PLATELET COUNT (BEAKER) (test code 44 K/CU MM 150-450 L = 756) MEAN PLATELET VOLUME (BEAKER) 10.0 fL 9.4-12.4 (test code = 754) NUCLEATED RED BLOOD CELLS (BEAKER) 0 /100 WBC 0-0 (test code = 413) NEUTROPHILS RELATIVE PERCENT 70 % (BEAKER) (test code = 429) LYMPHOCYTES RELATIVE PERCENT 18 % (BEAKER) (test code = 430) MONOCYTES RELATIVE PERCENT 8 % (BEAKER) (test code = 431) EOSINOPHILS RELATIVE PERCENT 2 % (BEAKER) (test code = 432) BASOPHILS RELATIVE PERCENT 1 % (BEAKER) (test code = 437) NEUTROPHILS ABSOLUTE COUNT 2.05 K/ L 1.78-5.38 (BEAKER) (test code = 670) LYMPHOCYTES ABSOLUTE COUNT 0.52 K/ L 1.32-3.57 L (BEAKER) (test code = 414) MONOCYTES ABSOLUTE COUNT (BEAKER) 0.23 K/ L 0.30-0.82 L (test code = 415) EOSINOPHILS ABSOLUTE COUNT 0.06 K/ L 0.04-0.54 (BEAKER) (test code = 416) BASOPHILS ABSOLUTE COUNT (BEAKER) 0.02 K/ L 0.01-0.08 (test code = 417) IMMATURE GRANULOCYTES-RELATIVE 1 % 0-1 PERCENT (BEAKER) (test code = 2801) Pulmonary Funct Lab [id number] 10:54:00Shauna Campa, GOLF BALL INSPECTOR, HARVEST SUPERVISOR 02/23/2020 4:15 [facility] PFT CHARTING REPORT Infection Control/Hand Hygiene procedures followed throughout the encounter with patient: YesPatient Identification Method: Patient name verified on armband, and Medical record on armband, Is the order complete?: Yes Account ID#: [id number] Name: Joel Desouza Birthdate: 1955 Age: 64 y.o. Sex: male Admission Date: 02/23/2020Patient Status: Outpatient Reasons/Symptom for having the Test?: the need of post-op transplant evaluation Type of study/treatment ordered by physician: Spirometry Lab Results Component Value Date HGB 7.3 (L) 02/23/2020 Ranges: Adult Male 13 - 16.8 g/dl Adult Female 12 - 15 g/dl 6 M inute Walk (read only) 12/11/2019 02/23/2020 02/23/2020 BP Pre - - - Start Time - - - Young Perceived Exertion Scale Pre - - - Ordering Physician - - - Interval - - - Pulse 67 63 72 SpO2 98 100 99 Supplemental O2 Flow Activity - - - Activity - - - Total Distance (in mts) - - - BP Post - - - Tank Pulled? -- - Tank Carried? - - - End Time - - - Young Perceived Exertion Scale Post - - - Study Date: 02/23/20 Study Time: 1054 ASSESSMENT History & Physical Mode of Arrival: Ambulatory Pulse: 72 Resp: 19 SPO2: 99 % on RA Pain Assessment Pain:None TESTING/THERAPEUTICS Medications ordered or required for procedure: N/A PT EDUCATION/INSTRUCTIONS Barriers to learning: No Known learning barriers Learning need identified: Yes, Patient/Family/Guradian was informed of the ordered study by the physician Barriers to performing study or treatment: Patient has no known disability to perform the study or treatment. DISCHARGE The study was completed in accordance with the physician's order and patient released from the lab without adverse outcome.[facility] 2020-01-28 12:10:00 Test Item Value Reference Range Interpretation Comments WBC (test code = 5.2 3.4- 10.8 ) x10E3/uL RBC (test code = 2.18 4.14- 5.80 LL 789-8) x10E6/uL Hemoglobin (test code 7.2 g/dL 13-17.7 L = ) Hematocrit (test code 21.2 % 37.5-51 L = ) MCV (test code = 97 fL 79-97 ) MCH (test code = 33.0 pg 26.6-33 ) MCHC (test code = 34.0 g/dL 31.5-35.7 ) RDW (test code = 13.3 % 11.6-15.4 ) Platelets (test code 52 150- 450 LL Platele t count = ) x10E3/uL verified by examination of peripheral bloo d smear.Decreased . % Neutros (test code 88 % Not Estab. = ) % Lymphs (test code = 6 % Not Estab. ) % Monos (test code = 5 % Not Estab. ) % Eos (test code = 0 % Not Estab. ) % Baso (test code = 0 % Not Estab. ) # Neutros (test code 4.6 1.4- 7.0 = ) x10E3/uL # Lymphs (test code = 0.3 0.7- 3.1 L ) x10E3/uL # Monos (test code = 0.3 0.1- 0.9 ) x10E3/uL # Eos (test code = 0.0 0.0- 0.4 ) x10E3/uL Baso (Absolute) (test 0.0 0.0- 0.2 code = ) x10E3/uL % Immature Grans 1 % Not Estab. (test code = ) # Immature Grans 0.0 0.0- 0.1 (test code = ) x10E3/uL Hematology Comments: Note: Verifie d by (test code = ) micros copic examination. LATRELL (test code = LATRELL) Performed at: [address] [place] [address] [id number] Director: Ortega Santiago MD, Phone: [phone] Lab Interpretation Abnormal (test code = 57030-1) [facility] [id number] 22:00:00 Test Item Value Reference Range Interpretation Comments CULTURE (BEAKER) (test No growth in 5 days code = 1095) BLOOD [id number] 22:00:00 Test Item Value Reference Range Interpretation Comments CULTURE (BEAKER) (test No growth in 5 days code = 1095) LACTIC ACID, [id number] 00:13:00 Test Item Value Reference Range Interpretation Comments LACTATE BLOOD VENOUS (2) (BEAKER) 1.38 mmol/L 0.50-2.20 (test code = 2872) Leather Belt Shaper ID - PIAYA LSARS-COV2/RT-PCR ([facility])2019-12-10 21:39:00 Test Item Value Reference Range Interpretation Comments SARS-COV2/RT-PCR (test Not Detected Not Detected, Negative code = 6223878) SARS-COV-2 PERFORMING LAB [facility] (test code = 6591843) Negative results do not preclude SARS-CoV-2 infection and should not be used as the sole basis for patient management decisions. Negative results must be combined with clinical observations, patient history, and epidemiological information. A false negative result may occur if a specimen is improperly collected, transported or handled.The limit of detection for this assay is 250 copies/mL.This SARS CoV-2 test is a rapid, real-time RT-PCR test intended for the qualitative detection of nucleic acid from SARS-CoV-2 in a nasopharyngeal swab specimen collected from individuals suspected of COVID-19 by their healthcare provider.This test has not been Food and Drug [...] is revoked under Section 564(g) of the Act.Fact Sheet for Healthcare Pro viders:https://www.WiFast/Documents/Xpert%20Xpress%20SARS%20CoV-2/Fact%20Sh eets/3023802%83EAAS-NCI-4%20HEALTHCARE%20PROVIDERS%20FACT%20SHEET.pdfFact Sheet for Healthcare Patients:https://www.BarEye.YupiCall/Documents/Xpert%20Xpress%20SARS%20CoV-2/Fact%20Sheets/3023801%20SARS-COV -2%20PATIENT%20FACT%20SHEET.pdfPerforming Laboratory:[facility], [place] [address]QVSQKMRV [id number] 20:47:00 Test Item Value Reference Range Interpretation Comments TROPONIN I (BEAKER) (test code = 397) < ng/mL 0.00-0.03 Troponin I (TnI) levels [...] failure, acidosis, acute neurological disease, and persistent tachyarrhythmia.Leather Belt Shaper ID - BSB-TYPE NATRIURETIC FACTOR (BNP)2019-12-10 20:45:00 Test Item Value Reference Range Interpretation Comments B-TYPE NATRIURETIC PEPTIDE 1761 pg/mL 0-100 H (BEAKER) (test code = 700) Leather Belt Shaper ID - [id number] 20:44:00 Test Item Value Reference Range Interpretation Comments PARTIAL THROMBOPLASTIN TIME 36.0 seconds 22.5-36.0 (BEAKER) (test code = 760) PROTHROMBIN [id number] 20:43:00 Test Item Value Reference Range Interpretation Comments PROTIME (BEAKER) (test code = 18.6 seconds 11.9-14.2 H 759) INR (BEAKER) (test code = 370) 1.6 <=5.9 Effective 11/26/2018: PT Reference Range ChangeNew: 11.9-14.2 Previous: 11.7- 14.7RECOMMENDED COUMADIN/WARFARIN INR THERAPY RANGESSTANDARD DOSE: 2.0-3.0 Includes: PROPHYLAXIS for venous thrombosis, systemic embolization; TREATMENT for venous thrombosis and/or pulmonary embolus.HIGH RISK: Target INR is2.5-3.5 for patients wiht mechanical heart valves.HEPATIC FUNCTION [id number] 20:41:00 Test Item Value Reference Range Interpretation Comments TOTAL PROTEIN (BEAKER) (test code = 4.1 gm/dL 6.0-8.3 L 770) ALBUMIN (BEAKER) (test code = 1145) 2.9 g/dL 3.5-5.0 L BILIRUBIN TOTAL (BEAKER) (test code 2.3 mg/dL 0.2-1.2 H = 377) BILIRUBIN DIRECT (BEAKER) (test 1.2 mg/dL 0.1-0.5 H code = 706) ALKALINE PHOSPHATASE (BEAKER) (test 308 U/L 40-150 H code = 346) AST (SGOT) (BEAKER) (test code = 37 U/L 5-34 H 353) ALT (SGPT) (BEAKER) (test code = 36 U/L 6-55 347) Leather Belt Shaper ID - BSBASIC METABOLIC [id number] 20:41:00 Test Item Value Reference Range Interpretation Comments SODIUM (BEAKER) 142 meq/L 136-145 (test code = 381) POTASSIUM (BEAKER) 4.3 meq/L 3.5-5.1 (test code = 379) CHLORIDE (BEAKER) 118 meq/L 98-107 H (test code = 382) CO2 (BEAKER) (test 17 meq/L 22-29 L code = 355) BLOOD UREA NITROGEN 30 mg/dL 7-21 H (BEAKER) (test code = 354) CREATININE (BEAKER) 2.06 mg/dL 0.57-1.25 H (test code = 358) GLUCOSE RANDOM 129 mg/dL 70-105 H (BEAKER) (test code = 652) CALCIUM (BEAKER) 7.5 mg/dL 8.4-10.2 L (test code = 697) EGFR (BEAKER) (test 33 mL/min/1.73 ESTIMA ROBERTA GFR IS code = 1092) sq m NOT ACCURATE CREATININE CLEARANCE IN PREDICTING GLOMERULAR FILTRATION RATE . ESTIMATED GFR I S NOT APPLICABLE FOR DIALYSIS PATIEN TS. Leather Belt Shaper ID - BSLACTIC ACID, [id number] 20:35:00 Test Item Value Reference Range Interpretation Comments LACTATE BLOOD VENOUS (2) (BEAKER) 2.02 mmol/L 0.50-2.20 (test code = 2872) Leather Belt Shaper ID - BSCBC W/PLT COUNT & AUTO [id number] 20:32:00 Test Item Value Reference Range Interpretation Comments WHITE BLOOD CELL COUNT (BEAKER) 2.6 K/ L 3.5-10.5 L (test code = 775) RED BLOOD CELL COUNT (BEAKER) 2.18 M/ L 4.63-6.08 L (test code = 761) HEMOGLOBIN (BEAKER) (test code = 7.4 GM/DL 13.7-17.5 L 410) HEMATOCRIT (BEAKER) (test code = 23.2 % 40.1-51.0 L 411) MEAN CORPUSCULAR VOLUME (BEAKER) 106.4 fL 79.0-92.2 H (test code = 753) MEAN CORPUSCULAR HEMOGLOBIN 33.9 pg 25.7-32.2 H (BEAKER) (test code = 751) MEAN CORPUSCULAR HEMOGLOBIN CONC 31.9 GM/DL 32.3-36.5 L (BEAKER) (test code = 752) RED CELL DISTRIBUTION WIDTH 16.1 % 11.6-14.4 H (BEAKER) (test code = 412) PLATELET COUNT (BEAKER) (test code 60 K/CU MM 150-450 L = 756) MEAN PLATELET VOLUME (BEAKER) 10.0 fL 9.4-12.4 (test code = 754) NUCLEATED RED BLOOD CELLS (BEAKER) 0 /100 WBC 0-0 (test code = 413) NEUTROPHILS RELATIVE PERCENT 70 % (BEAKER) (test code = 429) LYMPHOCYTES RELATIVE PERCENT 15 % (BEAKER) (test code = 430) MONOCYTES RELATIVE PERCENT 12 % (BEAKER) (test code = 431) EOSINOPHILS RELATIVE PERCENT 2 % (BEAKER) (test code = 432) BASOPHILS RELATIVE PERCENT 0 % (BEAKER) (test code = 437) NEUTROPHILS ABSOLUTE COUNT 1.79 K/ L 1.78-5.38 (BEAKER) (test code = 670) LYMPHOCYTES ABSOLUTE COUNT 0.39 K/ L 1.32-3.57 L (BEAKER) (test code = 414) MONOCYTES ABSOLUTE COUNT (BEAKER) 0.30 K/ L 0.30-0.82 (test code = 415) EOSINOPHILS ABSOLUTE COUNT 0.05 K/ L 0.04-0.54 (BEAKER) (test code = 416) BASOPHILS ABSOLUTE COUNT (BEAKER) 0.01 K/ L 0.01-0.08 (test code = 417) IMMATURE GRANULOCYTES-RELATIVE 1 % 0-1 PERCENT (BEAKER) (test code = 2801) RAD, CHEST, 1 VIEW, NON [id number] 20:23:00Referring: Dr. Yary Fernando for exam:->SHORTNESS OF BREATHFINAL REPORT History: Shortness of breath. Comparison: 07/28/2019 Findings: Asingle view of the chest is submitted. The cardiac silhouette is within normal limits for size. The patient has undergone previous sternotomy. There is central vascular engorgement. Diffuse interstitial and patchy mid and lower lung airspace opacities suggest pulmonary edema. Small bilateral pleural effusions are present and new from previous. There is no pneumothorax or acute bony abnormality. Signed: Karissa Romero MDReport Verified Date/Time: 12/10/2019 20:23:47 XR chest 1 view portable / [id number] 20:23:00Interface, External Ris In - 12/10/2019 8:25 PM CDTFINAL REPORT History: Shortness of breath. Comparison: 07/28/2019 Findings: A single view of the chest is submitted. The cardiac silhouette is within normal limits for size. The patient has undergone previous sternotomy. Thereis central vascular engorgement. Diffuse interstitial and patchy mid and lower lung airspace opacities suggest pulmonary edema. Small bilateral pleural effusions are present and new from previous. There is no pneumothorax or acute bony abnormality. Signed: Karissa Romero MDReport Verified Date/Time:12/10/2019 20:23:47 [facility], [id number] 14:32:00 Test Item Value Reference Range Interpretation Comments CMV VIRAL LOAD - Negative or below <375- >375,000 NEGATIVE (BEAKER) the linear range of copies/mL (test code = 2558) the assay (<375 copies/mL) Cytomegalovirus (CMV) infection [...] viral load canbe evaluated by identifying a 10-fold change, as well as assessing the CMV DNA viral load and the clinical context for each patient.The plasma CMV DNA viral load was detected using quantitative polymerase chain reaction and fluorescent monitoring of a specific hybridized probe. Genetic variation and ot her factors can affect the accuracy of nucleic acid testing. Therefore, the results should be interpreted in light of clinical data. A negative result may not exclude the presence of CMV disease.This test was developed and its performance characteristics determined by the [facility] Path ology Department, Section of Molecular Pathology. It has not been cleared or approved by the U.S. Food and Drug Administration (FDA), since FDA approval is not required for clinical use of the test. Validation was done as required by The Clinical Laboratory Improvement Amendments of 1988.TACROLIMUS LEVEL 2019-10-06 12:20:00 Test Item Value Reference Range Interpretation Comments TACROLIMUS BLOOD (BEAKER) (test 14.3 ng/mL 10.0-20.0 code = 657) [facility] LaboratoryALPHA FETOPROTEIN (AFP), TUMOR [id number] 18:05:00 Test Item Value Reference Range Interpretation Comments ALPHA-FETOPROTEIN (BEAKER) (test 2.8 ng/mL <10.0 code = 1094) Leather Belt Shaper ID - BSHEPATIC FUNCTION [id number] 15:21:00 Test Item Value Reference Range Interpretation Comments TOTAL PROTEIN (BEAKER) (test code = 4.8 gm/dL 6.0-8.3 L 770) ALBUMIN (BEAKER) (test code = 1145) 3.5 g/dL 3.5-5.0 BILIRUBIN TOTAL (BEAKER) (test code 3.2 mg/dL 0.2-1.2 H = 377) BILIRUBIN DIRECT (BEAKER) (test 1.1 mg/dL 0.1-0.5 H code = 706) ALKALINE PHOSPHATASE (BEAKER) (test 314 U/L 40-150 H code = 346) AST (SGOT) (BEAKER) (test code = 47 U/L 5-34 H 353) ALT (SGPT) (BEAKER) (test code = 42 U/L 6-55 347) Leather Belt Shaper ID - BSBASIC METABOLIC [id number] 15:21:00 Test Item Value Reference Range Interpretation Comments SODIUM (BEAKER) 143 meq/L 136-145 (test code = 381) POTASSIUM (BEAKER) 4.9 meq/L 3.5-5.1 (test code = 379) CHLORIDE (BEAKER) 115 meq/L 98-107 H (test code = 382) CO2 (BEAKER) (test 21 meq/L 22-29 L code = 355) BLOOD UREA NITROGEN 41 mg/dL 7-21 H (BEAKER) (test code = 354) CREATININE (BEAKER) 2.09 mg/dL 0.57-1.25 H (test code = 358) GLUCOSE RANDOM 110 mg/dL 70-105 H (BEAKER) (test code = 652) CALCIUM (BEAKER) 8.3 mg/dL 8.4-10.2 L (test code = 697) EGFR (BEAKER) (test 32 mL/min/1.73 ESTIMA ROBERTA GFR IS code = 1092) sq m NOT ACCURATE CREATININE CLEARANCE IN PREDICTING GLOMERULAR FILTRATION RATE . ESTIMATED GFR I S NOT APPLICABLE FOR DIALYSIS PATIEN TS. Leather Belt Shaper ID - BSPROTHROMBIN [id number] 15:03:00 Test Item Value Reference Range Interpretation Comments PROTIME (BEAKER) (test code = 17.1 seconds 11.9-14.2 H 759) INR (BEAKER) (test code = 370) 1.4 <=5.9 Effective 11/26/2018: PT Reference Range ChangeNew: 11.9-14.2 Previous: 11.7- 14.7RECOMMENDED COUMADIN/WARFARIN INR THERAPY RANGESSTANDARD DOSE: 2.0-3.0 Includes: PROPHYLAXIS for venous thrombosis, systemic embolization; TREATMENT for venous thrombosis and/or pulmonary embolus.HIGH RISK: Target INR is2.5-3.5 for patients wiht mechanical heart valves.CBC W/PLT COUNT & AUTO [id number] 14:52:00 Test Item Value Reference Range Interpretation Comments WHITE BLOOD CELL COUNT (BEAKER) 4.3 K/ L 3.5-10.5 (test code = 775) RED BLOOD CELL COUNT (BEAKER) 2.63 M/ L 4.63-6.08 L (test code = 761) HEMOGLOBIN (BEAKER) (test code = 8.8 GM/DL 13.7-17.5 L 410) HEMATOCRIT (BEAKER) (test code = 27.2 % 40.1-51.0 L 411) MEAN CORPUSCULAR VOLUME (BEAKER) 103.4 fL 79.0-92.2 H (test code = 753) MEAN CORPUSCULAR HEMOGLOBIN 33.5 pg 25.7-32.2 H (BEAKER) (test code = 751) MEAN CORPUSCULAR HEMOGLOBIN CONC 32.4 GM/DL 32.3-36.5 (BEAKER) (test code = 752) RED CELL DISTRIBUTION WIDTH 18.9 % 11.6-14.4 H (BEAKER) (test code = 412) PLATELET COUNT (BEAKER) (test code 91 K/CU MM 150-450 L = 756) MEAN PLATELET VOLUME (BEAKER) 9.7 fL 9.4-12.4 (test code = 754) NUCLEATED RED BLOOD CELLS (BEAKER) 0 /100 WBC 0-0 (test code = 413) NEUTROPHILS RELATIVE PERCENT 74 % (BEAKER) (test code = 429) LYMPHOCYTES RELATIVE PERCENT 14 % (BEAKER) (test code = 430) MONOCYTES RELATIVE PERCENT 7 % (BEAKER) (test code = 431) EOSINOPHILS RELATIVE PERCENT 3 % (BEAKER) (test code = 432) BASOPHILS RELATIVE PERCENT 1 % (BEAKER) (test code = 437) NEUTROPHILS ABSOLUTE COUNT 3.19 K/ L 1.78-5.38 (BEAKER) (test code = 670) LYMPHOCYTES ABSOLUTE COUNT 0.62 K/ L 1.32-3.57 L (BEAKER) (test code = 414) MONOCYTES ABSOLUTE COUNT (BEAKER) 0.32 K/ L 0.30-0.82 (test code = 415) EOSINOPHILS ABSOLUTE COUNT 0.14 K/ L 0.04-0.54 (BEAKER) (test code = 416) BASOPHILS ABSOLUTE COUNT (BEAKER) 0.05 K/ L 0.01-0.08 (test code = 417) IMMATURE GRANULOCYTES-RELATIVE 0 % 0-1 PERCENT (BEAKER) (test code = 2801) Tissue [id number] 10:25:00 Test Item Value Reference Range Interpretation Comments Case Report (test code Surgical Pathology = 104) Report Case: [id number] Authorizing Provider: Aaron Green MD Collected: 08/31/2019 1120 Ordering Location: [facility] Radiology Angio Received: 08/31/2019 [facility] Pathologist: Mandie Tyler MD Specimen: Biopsy, Liver DIAGNOSIS (test code = [id number] 3220) FuZzEwMzNcZnRuYmpcdWMx VOfoxdJmQVznm1SqF3HrQn AwMFxhbnNpXGRlZmxhbmcx MLYiFFE2uyRxCHTfNKxhOK ZzUVjvXp2gnMTsyHlqLcRg XIMyq7mmbpTWwenljAa8iG jlV16vh1Y3UgfaF6kdWNIo LBRmT6AjLX5aZUYkTot9ML Z3JCI2DPLwTWSoH2BdZR4n XOHzkDYfPJo5q4maiBykZN CkUFB8x7wiWIkebyLtTY9a vl5vqQh3k4wkoyYgSTTbMP CrtFLNLICvZ3SheRmdKb0y zTf2zNsaKjpcOOW2Cgh5LP 1rjl51iys8kLbbFNIszmiw MxH5FCfsOFSbakwaLOd8QF xtYXJnbDcyMFxtYXJncjcy MFxtYXJndDcyMFxtYXJnYj jyHEjuONUiAVG7KFgqh710 CQH2ALdlj0wjr6zecFWzAz u7LUVmKkIeNdqsTPgod2Jw o5awSTBieb6lFEH7zNUwuT enb9I4gWIkIUWcdDWurgHa ELGzDdK7VSjfBE4jev98MC MkHXR2vy9npJNywVbazhJc rAIxIDwoD7WeUNNda070XS MvH7EnMKPqm1S0wmKwThXb CKZdpCK6sqN0GSXoGOl3mV RzsaI6xxGnfBLgL8klfP65 AeCusFGiX1ScnR71IqYeuW GmD0XduU01ByBnmXVcU8Fw lY52QnXxyJIvJHIrnLNcDa 5wnYFhhHDfz9PpnEDkXMft L83pk222URZaktSfC5pndF FpblxwbGFpblxmMFxmczI0 XHFsXHBsYWluXGYwXGZzMj BcbGFuZzEwMzNcaGljaFxm HEscMxUlSKFlWRppB8otXo BcZnMyMCBMSVZFUiwgVFJB CgIKTZxTQQPKPH3ZNTETZH YEOU9UA7nVQ5lrEQWpQEGQ DGIKX3BNEhRFCXSUNKC7JS 6WJYXuCENOXeROR0LDXdEy G9rYTSBRVRTVOO7ATMQqjZ IoGW2tq0XuEIHbtG7vibZy mOTyfMcsgcXjGWxdp0ZtND cjCXWwNN3jkQrkXDHgZX7u DPOtK4eysP5iytv2FfScRQ UyPbA7BUVspqI1Nov2GOOv BXycu0glr0DzKSQbEGu4nQ tyOkXuYPAht4ahyaUiAoLz RNXkNPXnQSKpuMPuE275a3 gsi0ecvwGkkRW7ITQlIXO4 DMsmeyZmctT5PLcdfDKkOt D7DZqveqVnCPfwdwOetwWe Sod8UWCjP389VQF2hKucj6 xkLNA2XBKpSVPvGgJtUx2n wGQdS111QDDdGYOUPSToyP g1SWOyvdZwpbIuxZBPd845 G586n1kvVIUilhIdsHmApy iag3ltR589BSPpgJWnvoPp EfTuFTEqzXFryGK9AJXoKA 2rgfpxHIvyUXyyYTUcneA4 WMCcsMBvG2AsGGHrHR5roz nbIDC0SZdhJTGfSZT5PaZq OLBme3Znokw7LoBprz9yos 75EHP9n1NtuNilTBW4EYU8 EcBnKu2haNBqBCXgIF3aFp OtfEVwSCAzcx53vIpaEYkm SFC0KNDauePad1Ido7pgYq OqwrPsG2tnY5LtXQVfSXYl XBMmPcHgbcHjf4Fkr4KkcG VuhNd1k5nwDAJsQLSvqEhl e5rqDQE8MSEuaQKkD7azkJ 5fMNQsRW3qvlalq7mnCGyp WBcaIREpgPI5peO2FOWwxG KpN5GbkZ3xNZKwFPeoXYId pdn8RuBsHg3ssSXyxWgfTD xzYmtwYWdlXHBnbmNvbnRc cGduZGVjXHBsYWluXHBsYW luXGYwXGZzMjRccWxcbGFu ZzEwMzNcaGljaFxmMVxkYm AfKUXxNWfuF7vyJpVoCyAa Zcg9LDGukZHsKMOhXgb8LL PpmTRoQPGKvByoxM3tIPBt xZiboD9abPV0MHYalaRusZ VIhV9rONUKzE5xSxY0EtUj OkS9HSIoEYhvcOHorV8= COMMENT (test code = g8azeRPmUVBqzTPmDfNaNI 3357) ZzDTVjs3dtBIRroPZzClHk MzNcZnRuYmpcdWMxXGRlZm Qji7rls511mNNer5ljIMMj OfK5vGAdEPBnsCEaS112h1 mqq8gxlaZxbOI1EKBkIFB4 NAktzeBbrlN3EGffeCFkBt Z4KByeaeBmQCqscvYkuaMy Ffm3QQVtF438HYQ6iAazj8 myQZX2EYTnACKkEyLhQg0a zNRmT860JGNwKFNIYIRmdZ y6SGIoccPdxwQwaEPMp253 W904c7cnINIdmeWgbLcEqp mjt5moI990WBYdcIMdkqOq KxGaFRKdcEKxkZG6NUSxFP 0xibnxFaUuYG7eafuyVlBc FF1hjxc9AfHaDE2rmqhyRw FhJJzxNDNtuuxbCTEeg7Ob jbliXB0hR8Ucm7Z4xA0bfO JyTDKwzIRnMdYjWXOrch6s yODuYFmik7UjXEK0bjK6aI JwrTQvGXJrRO64Grmor2Rw CccnIEO6HLLaptGzq7Mpi2 uwHcEwqtQlF2gyK2UcOWYw ZCFjKXDzRzJdiyJmi8Sui1 NcmFYeyJg5p4vcSDAfINTx nRxgr4axCFN0OYRnB7A0vX Cda3epPWblYWDabPQ5udrh ADtwDBMxgsW6ezeqIXbtBQ OukDZ8dqciWCsfTZGsUdI2 jayfFZcqJHHvYUU5BMicz3 75NDI2TMyxYlebDOpvYRBn bmNvbnRccGduZGVjXHBsYW luXHBsYWluXGYwXGZzMjRc qXlmxGzcgX5qAqEbWlXwNG pmDM5fXIRlJ0fwnEXqZKLu SJBpZ5mzDbCmaR8eqYepGK xmczIwIFRoZSBsaXZlciBi kP4fm2exu9opu6PiEw3ahQ GmNlSzuV03r24rHJJiYVGo wPG4OUWwi71pQO5xGRMobv dec6Dkf19ap5u5vWJxtLws aUNgSOOrgl62epPfETYdV8 Hpbb1qGXpux5QuOfJvbIHv ZZItY790bDCvLySjf7Ovx7 3qMZG3HRAmUZEepbQkyLNf cZLgctLonfCgs78at8LyjQ K0HLI8O9lmg8AtKVRdzTQz lypbREAmhy59mgOqbONonW 74JQ8ap7LfqZT5sU6eZsBs cGFyfQ== CPT Code(s) (test code g0klyXFuZEJomWHeIcHpWY = 3357) AbRCUre6uvKIFxcANpShPd MzNcZnRuYmpcdWMxXGRlZm Kui0pvl233gZCje6agJNNz GyZ4nLWqKVIfgXDaL082p6 gdp5xtlcQbqZQ6JUFuOQN9 VTkesiTelzL4TItqaISnQy N0XGhdaiTzOGqhunIzrlWf Vnz2MXJzB745WAA2zUash4 ybWOB3VWFyAOFzIdWiOa8b kVOhU056CSMgQZXOESMpkT o4MHWyshLmjxFxxCJFd807 R040w0qjISDdlqDccYyNmo urz9qkF224EJAovNRnjiXv MpHtUWTlwDLyjMQ2OVMfOU 0wxmviJzQbNH8gygptPqTr TD7dbhn3OcCsCR8ozwrqQt VxMLorPGGftevzBNQbx3Wx ldhiLH0dL1Yza0H3eT2qnV ZuDBSnyJIwOfXuQEHkje1c oLLdOXuof8AdSHH8xbX7uY IhoXAdYDKcMO75Dufuy0Zl ZmljNIU7RZLsmjLkp9Edy4 lcAmYipjGmW6zgB3PyZQCl QQUtPQEjBuRxklJkf2Lxn9 MlgXGvdDs7j8cwGDCeWEPq eHgan5psSFH4CHGsM1K6xZ Kiq1dnSLliDEWtwTF2gdqg WMdjMOBgyhR8kufhLMcqFK SwdZQ7ipnyACzhWJSaCfB9 lqhzDMidLOKxGHG1OBhgd9 80YIY4QJaqLookQSwiENKd bmNvbnRccGduZGVjXHBsYW luXHBsYWluXGYwXGZzMjRc rVdfoBrzuS0gLzSyVuQcWS hrNT7lJNSpV1wxaQSqOWFl TQHdO1wgKtWtjZ0dzUieMM drtxYiJPn3StR3UJW7DWUp MyBYNFxwYXJccGFyfQ== CLINICAL HISTORY (test t3tlpERxEMYbhROlQsYwBV code = 3356) InSVYmm3igZIQqbLRhFeKb MzNcZnRuYmpcdWMxXGRlZm Afq9ktn321hMYtb5bcIRBr ChS6lSTmMKNlpESwK464x7 juw7lanpAcoTF5NIMeZSY8 JHwqppTwgwK3GAfwoLLoRp R0VJnwdgOcWRoktbKljuAf Cnr8FVViE947AQM6lGlpa5 faSSX8FEKuIABkToLxLp3p eDRkN778QRQzRQXODXYgcY w3NGMkhjNsneHuqFKZn824 W248f8lpAHLsjjCxqUgAng fag2kcJ417HIXpcSJijxKc YnEpHRFusONprEH3HJSzWZ 2ownioUlGdFW9kguoiNnTw SP4ykcs0IeHmZX0dirkgYm BlTIfcTSEpexofKSQxf9Tp qxqpQZ8rX5Qko2B9oH2ckA TcZXFqvMHxKeVlJNBoec1c wZZmHFkmj0FtYZZ0xjU4sL JqhCAqJTCvKM57Qsscy2Nk LbmyNCT9DSXvrqLhj6Lxg3 hzQnAnpqBiZ3dyI7GhJFVh KMFoHAFlEtIezmUhr2Hrw1 YjlANewOl7s6haGBSqGSPk eGyog5lqZYJ7SGUkK8D1iL Wxb9ayZIomGHGbaNH8bolw KZouQDWvrbJ0wsbsVMtoSD HkyKQ0fkzjZMooULLxOcT8 untcGMjpMKJiQBF2OOwhh0 44LAN5NMfwKavlTMonKHZd bmNvbnRccGduZGVjXHBsYW luXHBsYWluXGYwXGZzMjRc vBwsnMryqE0tSkEvZeHlXU gpBU5aQMWgS0lubBMqXOTb IMTpG9wxAsMzjI3xyCrbFW hlhkCpFZUjvDpikwSiw9g8 zOKleRP1n9D1WF8sFUYysH I7TQDyvJFnoG2vVTYuWW3p cGxhbnRzIGluIDIwMTMsIG LzSJFwk7eew3w5kQLtu6Ba iMZbQMZoWFZty8Z3IWinoI xxIDN3CW4alD6bNwGncOHo fQ== SPECIMEN SOURCE (test u6vnoPFrXKRraKOkWrSeZF code = 3377) CsRKBcf5mvHHDmiKInYbFm MzNcZnRuYmpcdWMxXGRlZm Imu2lqq346tYFbf8ucTDTt GfD1lALdTLEnjMQfA552z4 tiy3lctgBijWV1BDXaNML9 NOrylrHxdaO7MPjacAPdZk M6PMahahPjYHrvmgPptqFw Gyc9LTTeY334MUO7aHgdi6 ryRYD3IDJxHQSzBoDtHv3c wKQcP591WFZrIPAUVQRnuP m3KUAobcBllyDlhVACf551 F821s7oqCGLnbeRdqOaKug szq2doO498GMWtyCFaxlGk XkBoYIFhvPGkaES7CVRmAQ 6gpmjmAaQoUD0mehclAhRk TD6oozv8YdHsOV9eovczNi MoWQzrTBWdfxhkIEGdo5Rv mfedZA2gK0Qwd1D0oD9pwM BzKMRwcVAoLgRkXNQykx5a eTUfNYquk8AlZMK5gnB7qB BdsAKsZOPbYQ03Cutbs0Qj UqgvKVO8KOYyyaVsw1Dzg8 vhVtBrurSxV1ilG5GuZNUp AUQfJHVrPnKtlqGrs8Jpk0 XtjVSfgTp7h9rwOPUfLJWd qTacy7acLEO2INVtP2B7xT Xlm4dhQGcgDFXhuPY5scqy YXxzXAKpxaJ6wcfeHPxjVN TnlHZ1fgkpNFkgFMJjMfG1 fxfxKIulGDIoBSQ0JBflm9 55JTF1WAckNwduGHisOFPp bmNvbnRccGduZGVjXHBsYW luXHBsYWluXGYwXGZzMjRc qCrjpKwsxN1xSmUsLqYoTA vgWL9vRIGcO4nvvPLdNVSx YYBfA9bjGfSebZ4meCvaPU xmczIwIEEuIExpdmVyIGJp h4KmeJdrMJF9 GROSS DESCRIPTION (test m5bccACyBVOsdSXbIpRtLC code = 3366) QvCMIbl8dzVWQymSIvCjHd MzNcZnRuYmpcdWMxXGRlZm Lno0voc431fOKnm6axIGXw PeJ8sHOmLPJkpYBqF072VZ BdOPtbv6stg4HbSYVloNWz b2F2LYAZwbwllIz4oAfoE4 9hn6Q9ReaqL7oxHNTxXJnu DKSlOIqfaHMwJDV5KRNwPZ J9VGdlsbUnjnT4KWahqMBw KiM1WOr5b8qkjLsdRAHzFI K3r4jhHHkzsyIbOD6gft6y uHe7h8ddisQpKPZvKOJrdJ ADXPLdA1HioIyqSt3kuHg5 kLcrJqijLDT3Llo2UR3cnt 26lts0mRacMIZqsfvcAyH1 KOchUHByrccbTSl6BIncQH JnbDcyMFxtYXJncjcyMFxt YXJndDcyMFxtYXJnYjcyMF blQZYxBAB3FVrpb381XIQ3 OWfyv6ngl7pqoRWwFya0VQ TwPsDuHkhkYPntt8Rhc0lg NTWbta6rVHH4iOSarJwmc0 Q0eIXnTOTeeQQaxpGaUIVd PkB7KKlwYM3wsv87HNQaMV V2zb6ynAIplWuoceJjmMVv EXkjE5EkINQto173KKSpI9 FgCGOgb9E9uuSkXtHfJYFs tCO2lgS9KEQhBUh8cFAixj I7pqDfaTAnP5votH62PdJc hAGiF4JdtP84TxMicPAzG1 NumN68SgJemLBsL6RaoF06 CkQraVDcPGUbjTBiDf8awG ElzKBrw4PweKYxDHpiU38p o530QPLrdmCsO2yblYDgoe xwbGFpblxmMFxmczIwXHFs XHBsYWluXGYwXGZzMjBccG vvrS0aSjNkLmAiWLUYoGIr L6YiNUPqgfDlZPWmfVUbEU BpbiBvbmUgcGFydCBsYWJl bGVkIHdpdGggdGhlIHBhdG pswvVuovQrchClvd9mlGdf biBhcyBTMjAtMzIwNkEgd2 znZ1fbV09xoxShtW0dRHSm sM4rhWiyEQEmY25jlPLavU rdGyYwTCV1pOIluXcbhvFw bGlwLiBccGFyXHBhciBBLi PRDXCziJTkAVOlxfZeu1Sh YWxpbiBsYWJlbGVkIHdpdG ggdGhlIHBhdGllbnQncyBp llEiqn6wmLmkjfUhxiQwSg oeziKsWAEbt9ZboGGcBTXl XIZquJVpVbEzA14tnwWpKD 3fQNDwdq2qOOIcb67tmDC8 aXNzdWUgbmVlZGxlIGNvcm VkFR6sMKE3nmgqFxItXXxf LS7bUVktTK2tIMYjYRzwRP MhJ5WdT1U5RE3tEHferUYk llYsg9MbcTs8oUVyQPnkKY IreK2vMFR8QTTkSjbcePCz nEiozgNopqSsQBKjSCI4EE YKHQ1aEXVVO4RjJRCylc7= MICROSCOPIC DESCRIPTION c7oxlDSxUSEnuNVsRcDyEB (test code = 3371) LfXDDbw6ytOUHceHFpHqWh MzNcZnRuYmpcdWMxXGRlZm Zcr8evf371fZFrt9giFIZm TeB1hLEgRFZybJCpP235z0 nqg4rfwyKutVM5IEFaLYO0 ZUvijeOtqdK9IFumaRPpIs T3SWmcaqEwTPxjfwGpehIw Cks6XTYhS858XCS6dUynj8 vkAUI8CQOoVDOxStDhRo2d bGSvB571WRPxDBTBRACqhY s6FUXimgCbqkFviPCSw795 N526v9qwZLPrjcUwyMoQye qyp4tdI857MJCawEGsbeMz LiMfSUOosPHtkUU3FSAhSJ 1jnvnfIjIxSS7tqoyyLwZa EI8euma9OnTqJI7abxdbZf SlEFezCKThnrxzQFWaz4Bl cuqmCM2vT1Wzi7E4iX3qhB PfFSZpaHTrJjUpFLFeuh7b qOLaJXjff1GdPEW5peM4pA TytDHcYIRcJU02Bzuin8Us QvotOIU7IOTdkdWhz9Kem3 bkOuJjmyFcM8wcW6RdZUWy CUWePJXmAaQgkbVwm6Liy4 QbwJGzrZm0w2wmWBQyPYTu uScee8qyCUK7AQElR2J5cW Fcw2qkCRxdDQPlyDF5ldhc QEbqDIXwqsX7vbxmIAzsIU EjcVP8spwrZVokNXXbPrH7 znvzVEuhWUJqNOU4DYeuh8 34SWY3TAnpMyhhZVglIAUs bmNvbnRccGduZGVjXHBsYW luXHBsYWluXGYwXGZzMjRc jEmllEkevP2gGrXiMdAoXT trOH3oPBFoC3jypWMkZJEf NVQkZ9xcYhJjqX9itTmlRV mjguPmLHUnT6Fvl13ff3kw t1FdBd07kjEqc4QnniMgEb TezDAwdlFsVLJjorDuaB6m FLizcHvnO3WbTOLgugM2qD GeLKPySNAstkBzzCU3aeLc dHHkFW5oFEbuRMLiMPL6XQ BlWPNdatSospFwjCV5sU1g NuFArzqhdEYcaLJhAS3lOH JldGljdWxpbiBzdGFpbnMg l2aheoJreAXsfhZxZSOcuC Hay3EvXrGip1X0VVjcGIEn BCLnm6k0vESrh1XxXY4iGK GybQNdtT6eAQIqRZOzp0X7 eSQpaVF2NXGxn60agKS6XJ 57BAgauZyfA0zyrjdwh9ou KtRZDGUhz0uukAFxmUUxuB XdsDJnw5AftdBbnpKfij7v mW9wczFuMSDvK6KwPMIuGW MgDGK9D0cvg5IgTlonil6x fYXhp8VdM5IiqKHtvI3phX cgxzBuZHAqmGaoTBWrlZ5h KOFdZDPeiZgtpAC0cX6hUO 3tCDVepr96cnXaWWBwM8Zv fe1vT3zytTAewBMxtXNcpL lzxWO0oK1rIDPoZKQpt65e PEI7dD7vIPzlMKVbCAEwym KgVV2dqVMspf2cu6TxQ6gu tCDknGvbePhtT7z7KJYfqx Xcj60mrpVrcRJnz5N2BXzf xJ1ckJHckUQ7vG9nJQtbYO ByZXNlbnQuIFRoZXJlIGlz BVT6R7E6aJKeLXRrYWT7nF 1gQNpdpZwrVELmd5HlYANl PNErVAG0of6jkRjyqw5tKM hlIGJpbGUgZHVjdHMgYXJl IHByZXNlcnZlZCBhbmQgYX BwZWFyIHVucmVtYXJrYWJs JA8fQc0ciGQtcFP4E9WodP EnvlIvBE5lOTSfi37cOLja AT79sP2wHPRjn7AaMtzmHF NmzGZ5OZXvQGPeLHMiQKXa ACNgFaNZWSfkB3p6Q11iZL 1baKFuYK07O7ywjFNsusMs hYHui8NdsZ2oOo5lq7iicy rxyWJktdYvp5MuOZSes0ei BYGmCDupi06wvO6kWLFkH0 JiHXMcjOgcrdxoLGUbfK0o sGIBPD0hOXr0WMkuslZnKL bpFgRxYFTbxrQdlu1sdqWo SO9tCESta51tm7CvY6hzyL VxmIHehBGyjJJroTFaq0Sy hD0wZGpluT7ziGOvdNFbxD Dkrx2lsBN6PEY4XFF9r1Ds cyBpbnZvbHZpbmcgbGVzcy G4bZIgEIZiSJ6dVMykysSz HNWarbRpP5s6aWVuxXVexT Mfc6RkuD2kKy0kqEmkpKoc VLOxdU1ooGyzwiAjrdGld7 BohrFngfAWDNORMIV5YQsj JyXDwg6qJTT5SYgbMXvmTY 7iF2P4lIJhMhowOXOovVUh EHPdPDSbDSjtx9QedS4uJk C8pfxxcNRhfEZyCNRceAmj dWxpbiwgaXJvbiBhbmQgUE UWTIywgLggZCrek7Qkv6Zh cGFyXHBhclxwYXJ9 SPECIAL STUDIES (test y0djuTOwVZHfh6fiHKGnxW code = 3379) FuZzEwMzNcZnRuYmpcdWMx ZRiphgKjTEygm9QuP9NbFj AwMFxhbnNpXGRlZmxhbmcx GCVjRYK3syTfUCBqTGgaHN BmNIolEm4ugAMahThuIsZk EUDzu1ubuzAYdpbtvQl5l0 tyRFOyUdS9xDYpMTrdF8qi urVsrCCvQ2DkyUQfyVd7i1 tmNwKsLaQ4dOYdARnwL4wl dxMyyKIePBFzIVv0sW09LE XjdF2dsWXkCUrgfgPcOlT9 QVdxXJWeBuA6MJBczGAgNC OcI7xtDJGhDYmuBYLlLAaa fJHuMZA1pWryo9S3qKCorW HxvSpbHoMdZiQvGtHRt5Yz QZw6wYdkA9SgLWQtAtG8cC QgUGFyYWdyYXBoIEZvbnQ7 fYbhwdWpu73dhGIpGSPaCS PpUbIhvRdcGASgJLMJz2Ow yXyjHHP0oLj4nKoxKploJE K2Gne0PD6crm85xqk5zEvi YORuuazeQuC0HBpwEHNnto zkOKu4TYewJHAscEO5HYUm yWChL6XfSWCwLC8txfx1RW R3GJnrWBEiUlU8TNAlpAWc TWJmaIdmUMqsh699UTQ1Ll ImLT1xS5Jvj7F9qT9bwZLz DOLwvNAhTzKmPVIbdb2czS KeYGqbo6JiEAH7gqS2hLQv bTPsVLQcMT28Kxutx5TrAb ani4LlW85fzKR7QEsvx8vi YZ8kHnZ5eoItBDifo4sinN 0gAeR1ZAjdTO8aWR4eBNMm uA3bjcruZBSuWbXwlcmeWH AvvBxnbkByBt5zgEqbZXB1 IKgvK1xgmV9gUkK3NIijE4 iewH6sPXm3PHlzqDZ9AWPh fD5lZY2jcpwsn5coSEbbZC dqUYZocgR0ywK2LNBpeBYu X7RveT4rFCEyUC5xrniqa4 dvFVM4HRltLLDzIZS5GlUo TIDck7Byrar0WlZan6FcjY GlUIycG95cv267JFVzxdXd Z8yzpYZsridiiDYwifxwGV kyecA9QQSmGXSnBLdvFTWv XGZzMjJcbGFuZzEwMzNcaG ljaFxmMVxkYmNoXGYxXGxv B4qeVaDvL4UeVZRfYgRxDU imCWpkwHQvpSXkvNJ8yD4x II7uMWMdgXUtI3CcWRCyru JpjRDgWDF8kAEzvSJwDC6w BRynmAFfv0qhq9QwQ2mfdT nelJL7JF3yQHRdUOYkHBva o0QugV9aWycssNGtakbkTZ xmczIyXGxhbmcxMDMzXGhp I1tiZdFlKAYqlZbtLJcij5 NoXGYxXGNmMlxmczIyXGx0 cmNoXHBhclxwYXJccGxhaW 8zFnGoFrYmWebfJO7fEJDs W0objLQgDDRiVZAuY1xxJc ItwF5clOmdVSqfNjDyPxBb BeDDa176mq6hVIWacQBgmk ZQuYVdyK1eFKewWPwsWVaq uSGbFIttv5fyYVQuc7z4sX QmYKLtgdNpl1hiPViegzGe OFTboHWygEIxTJTgc62qQC ulpJmqaJxtYBUrj3SqqFhr h3AdZuAoKObia0OwH82yzZ JvbCBzbGlkZXMgcnVuIGFs f46ng6rbVAUsEuZ6rZFgoB P9zHZkwTCyl8YpmFmjMKVw j6soBMGqzy9gjcgngRWof2 YqqB6elxglVKiafMYijpNn MLFmv4q1mYGlBWIfTWLfZJ dymZr2KVIeg624yh1salR2 uYSlBXM7TDvdLBNlOONupz UgZXZhbHVhdGVkXHBsYWlu XGYxXGZzMjJcbGFuZzEwMz NcaGljaFxmMVxkYmNoXGYx QOfmT5vjZgEhI6JhRGWrQw CphGDnC3wcrHImCRMmMGfh XGYxXGZzMjJcbGFuZzEwMz NcaGljaFxmMVxkYmNoXGYx LIpgN2ejPkJgS7AvKAYdXu IgIFxwbGFpblxmMVxmczIy AVnxnchwRIAiQLdhR4tcAf VeARKssItiEUouo4TwRRCc JTPoZcgtjfGmMKy3npVgOE BhclxwbGFpblxmMVxmczIy OKcgalegJFMqMDexB5ohDd GgVDZpmNsaYJyog0QaCYTq XGNmMlxmczIyIEltbXVub2 biv4YgS8vqtXdfjDM2XHWi E8wmsBEmpMF3MZE9uH1qWM tlcaEcDSZaq2NtRQIfQHSb FuI0iY8uTKD7IxRMpAuhRO BsYWluXGYxXGZzMjJcbGFu ZzEwMzNcaGljaFxmMVxkYm SbHWOoQFotG5heQxNqW8Os LYOyFmBhbHjjNSxuUQv8Iy xwbGFpblxmMVxmczIyXGxh zrxmFNGqOPfgG7yiJhTfAZ WkyGegXNols0FuWWKtEAXf MlxmczIyIHMgTWVkaWNhbC NRXJ08FGKwCMWriHvgiO4p dMHSIJOqnvF8b8T0MDqwWJ HcKUu0FEmmbaVaNCEygK0h LZEpNW4bZSs9nrMvVGUib3 GoQG3tHEYagEAeQDD9EKDn p6PkS9Vnm0MzSLHtAMSgjy 6dudBcXnIJoKDnLZRmrh02 QSLgDS6dZ8vcTMMtIBBskg AzcUJte2UqBRBylUV5iZTh ZX1GAmFOn99zXIHcSOCOmy JhZCOfcQeseMU3pgI6rQ7u LiBUaGUgRkRBIGhhcyBkZX Bjrm3sndZwXOEfMTWgp2Gb pDLanBVahvHdS1Rwl0NxLH Bpfr61BCqkaQLdbh96UW4y U1Pcf8OttY0rNVwcJBRsv8 CtuKKmrXOzNXKvv6PwT9gb vbdwJLipyGZecW0bAXFkQC c7EKOik1ZlYBGqz0EsJgGz giQmMQWkRMWfSXSfcC61CC V1sKazrNbgfmGfNT9bXJRr wzMbHRJlGTXpuJ7jXGaews AlXHKcbtX1m7Z7JLinNRKf aiBxDfwtLOO0brIgagO4tY ZbE8opbuhhYTjdEMKrm4Pw lX5awCJZvURir0VnyBYbuC DUeRJcFG9vzrNxBW8bVTX6 ODggKENMSUEtODgpIGFzIH N8KSxfWopuEPS0lqQcULGe k7VxXYnrJ9joV89gcKysfW k9pLSdmIedcHOvwPQwHWVv xeQ5i4U6SQDql3WxkeqgJD BsYWluXGYyXGZzMjJcbGFu ZzEwMzNcaGljaFxmMlxkYm ZaNIGyWUikD7csFjVdCpKh AftjTML0iR== [id number] 10:25:00Surgical Pathology Report Case: [id number] Authorizing Provider: Aaron Green MD Collected: 08/31/2019 1120 Ordering Location: [facility] Radiology Angio Received: 08/31/2019 1257 Pathologist: Mandie Tyler MD Specimen: Biopsy, Liver LIVER, TRANSJUGULAR NEEDLE BIOPSIES- FIBROSIS STAGE 4 OF 4, CONSISTENT WITH CIRRHOSIS- see comment Signing Pathologist Direct Phone Line: [phone] signed by Mandie Tyler MD on 09/04/2019 at 10:25 AMThe liver biopsy shows foci of sinusoidal dilatation and congestion with dilated venous radicals. These features could be secondary to portal hypertension or may suggest a chronic venous outflow obstruction. [id number], [id number] with history of bilateral lung transplants in 2012, and now with a scites and portal hypertension. A. Liver biopsyThe case is received in one part labeled with the patient's information as [id number] which corresponds to the accompanying requisition slip. A. Received in formalin labeled with the patient's information and "liver biopsy" are four fragments of kwong-red soft tissue needle cores measuring 1 x 0.3 x 0.3 cm in aggregate. They are submitted in toto after filtration in cassette A1. SC/plSection shows four cores of liver parenchyma with greater than 10 portaltracts and is adequate for evaluation. Trichrome and reticulin stains show expanded fibrotic portal areas with foci of bridging and nodularity, consistent with cirrhosis. Perisinusoidal fibrosis is prominent. Focal areas suggest fibrosis of centrilobular hepatic veins and dilatation of venous radicals. Sinusoidal dilatation and congestion is present. Mild nonspecific lymphocyte predominant portal inflammation is present. There is ductular reaction with associated neutrophils. The bile ducts are preserved and appear unremarkable. No periductal inflammation, granulomas or bile duct scars are seen. Few glycogenated nuclei are present. No significant steatosis, ballooning degeneration, Sheron Denk hyaline, lobular necroinflammation or cholestasis is present. Minimal small droplet steatosis involvingless than 5% of liver parenchyma is present. No hyaline globules are seen on PASD stain. Iron stain is negative.Special stains: trichrome, reticulin, iron and PAS with diastaseThe interpretation of this case included the use of immunohistochemistry or special stains.Control Slides Examined: In-house known positive controls were evaluated along with the test tissue. These control slides run alongside of the patients sample show appropriate staining. Internal positive and negative controls when available are evaluated Immunohistochemistry technical testing was performed at [facility], Pathology Laboratory where it was developed and its performance characteristics were determined. It has not been cleared [...] qualified to perform high complexity clinical laboratory testing.SINA [id number] 18:36:00Referring: Dr. Yary Fernando for Exam:->refractory ascitesFINAL REPORT History: Portal hypertension, recurrent ascites. PROCEDURE: Following informed written consent, general endotracheal anesthesia was administered and the patient's right cervical region was prepped and draped in the usual sterile manner. Maximum sterile barrier techniques were utilized. Access was gained to the right internal jugular vein using ultrasound guidance and a micropuncture needle. A 10 Chinese sheath was placed at the access site. A 5 Chinese multipurpose catheter and Smith wire were then used to carefully select and perform right and middle hepatic venography. The catheter was removed over the Smith wire and replaced with a transjugular biopsy sheath. Atotal of three 19- gauge core tissue samples were obtained from the hepatic parenchyma adjacent to the middle hepatic vein and submitted in formalin to pathology for evaluation. Hepatic pressures were also measured. The biopsy sheath was then exchanged over the wire for a multipurpose catheter which was used to select the right hepatic vein. The catheter was exchanged over the wire for a Colapinto needle and tip sheath. The Colapinto needle was seated in the wall of the right hepatic vein and using coaxial technique and a 21-gauge 65 cm Chiba needle, percutaneous access was gained to the right portal vein. An 018 wire was advanced through the needle into the main portal vein. The tract was dilated using a 5 mm balloon and a Data Expeditionenstein catheter was advanced over the wire into the main portal vein. Portal venography was performed. An Amplatz wire was then placed through the portal venous access andinto the superior mesenteric vein. A 45 cm 10 Chinese sheath was advanced over the wire into the mainportal vein. A 7 x 2 cm Viator stent was placed across the hepatic tract between the right portal and right hepatic veins. The stent was dilated using an 8 x 40 mm balloon. Repeat portal venogram and portal venous pressures were obtained. At the conclusion of the procedure, the catheter was removed and hemostasis achieved using May no compression. Overall, the patient tolerated the procedure well without immediate complications and was discharged to the recovery room in stable condition. FINDINGS: Ultrasound images of the right internal jugular vein obtained prior to percutaneous access demonstrated patent and compressible vessel without evidence for thrombus. These images were archived to PACS. Right hepatic venogram shows a relatively small but patent right hepatic vein. Middle hepatic vein is also patent and is larger than the right. Portal venous pressures obtained at the time of the transjugular liver biopsy are as follows: Wedged hepatic pressure: 18 mmHgThree hepatic pressure: 5 mmHgRight atrial pressure: 5 mmHg Total gradient: 13 mmHg Following transhepatic access to the right portal vein, portal venogram demonstrates a patent main right and left portal veins with hepatopedal flow. Nofilling defects or thrombus is identified. Following stent deployment and dilatation, the Viator stent is noted to lie in expected position between the right portal and right hepatic veins. Flow through the stent is brisk. Persistent hepatopedal flow is seen in the venetie portal veins. No varices are identified. Post stent gradient pressures as follows: Main portal vein: 15 mmHgRight atrial pressure:9 mmHgTotal gradient: 6 mmHg IMPRESSION: 1. Successful uncomplicated transjugular liver biopsy and hepatic venous pressures as described above. A total of three 19-gauge core tissue samples were obtained from the liver and submitted in formalin to pathology for evaluation. 2. Technically successful uncomplicated TIPS stent deployment between the right hepatic and right portal veins with a post stent gradient of 6 mmHg between the main portal vein and right atrium. Total fluoroscopy time: 15.6 minutes. Estimated total patient dose reported as (Ka,r): 358 mGy Signed: Denilson Liao MDReport VerifiedDate/Time: 09/01/2019 18:36:48 Reading Location: [facility] P048 Angio Body Reading Room IR TIPSS [id number] 18:36:00Interface, External Ris In - 09/01/2019 6:39 PM CSTFINAL REPORT History: Portal hypertension, recurrent ascites. PROCEDURE: Following informed written consent, general endotracheal anesthesia was administered and the patient's right cervical region was prepped and draped in theusual sterile manner. Maximum sterile barrier techniques were utilized. Access was gained to the right internal jugular vein using ultrasound guidance and a micropuncture needle. A 10 Chinese sheath wasplaced at the access site. A 5 Chinese multipurpose catheter and Smith wire were then used to carefully select and perform right and middle hepatic venography. The catheter was removed over the Smith wire and replaced with a transjugular biopsy sheath. A total of three 19-gauge core tissue samples wereobtained from the hepatic parenchyma adjacent to the middle hepatic vein and submitted in formalin to pathology for evaluation. Hepatic pressures were also measured. The biopsy sheath was then exchanged over the wire for a multipurpose catheter which was used to select the right hepatic vein. The kareem ter was exchanged over the wire for a Colapinto needle and tip sheath. The Colapinto needle was seated in the wall of the right hepatic vein and using coaxial technique and a 21-gauge 65 cm Chiba needle, percutaneous access was gained to the right portal vein. An 018 wire was advanced through the needle into the main portal vein. The tract was dilated using a 5 mm balloon and a Berenstein catheter was advanced over the wire into the main portal vein. Portal venography was performed. An Amplatz wire was then placed through the portal venous access and into the superior mesenteric vein. A 45 cm 10 Chinese sheath was advanced over the wire into the main portal vein. A 7 x 2 cm Viator stent was placed across the hepatic tract between the right portal and right hepatic veins. The stent was dilated using an 8 x 40 mm balloon. Repeat portal venogram and portal venous pressures were obtained. At the conclusion of the procedure, the catheter was removed and hemostasis achieved using May no compression. Ov erall, the patient tolerated the procedure well without immediate complications and was discharged to the recovery room in stable condition. FINDINGS: Ultrasound images of the right internal jugular vein obtained prior to percutaneous access demonstrated patent and compressible vessel without evidence for thrombus. These images were archived to PACS. Right hepatic venogram shows a relatively small but patent right hepatic vein. Middle hepatic vein is also patent and is larger than the right. Portal venous pressures obtained at the time of the transjugular liver biopsy are as follows: Wedged hepaticpressure: 18 mmHgThree hepatic pressure: 5 mmHgRight atrial pressure: 5 mmHg Total gradient: 13 mmHgFollowing transhepatic access to the right portal vein, portal venogram demonstrates a patent main right and left portal veins with hepatopedal flow. No filling defects or thrombus is identified. Following stent deployment and dilatation, the Viator stent is noted to lie in expected position between the right portal and right hepatic veins. Flow through the stent is brisk. Persistent hepatopedal flowis seen in the venetie portal veins. No varices are identified. Post stent gradient pressures as follows: Main portal vein: 15 mmHgRight atrial pressure: 9 mmHgTotal gradient: 6 mmHg IMPRESSION: 1. Succe ssful uncomplicated transjugular liver biopsy and hepatic venous pressures as described above. A total of three 19-gauge core tissue samples were obtained from the liver and submitted in formalin to pathology for evaluation. 2. Technically successful uncomplicated TIPS stent deployment between the right hepatic and right portal veins with a post stent gradient of 6 mmHg between the main portal vein and right atrium. Total fluoroscopy time: 15.6 minutes. Estimated total patient dose reported as (Ka,r): 358 mGy Signed: Denilson Liaoeport Verified Date/Time: 09/01/2019 18:36:48 Reading Location: [place] [address] [facility]io Body [facility], [id number] 07:58:00 Test Item Value Reference Range Interpretation Comments BILIRUBIN DIRECT (BEAKER) (test 0.6 mg/dL 0.1-0.5 H code = 706) Leather Belt Shaper ID [place] PABLO MCOMPREHENSIVE METABOLIC [id number] 07:58:00 Test Item Value Reference Range Interpretation Comments TOTAL PROTEIN 4.6 gm/dL 6.0-8.3 L (BEAKER) (test code = 770) ALBUMIN (BEAKER) 3.3 g/dL 3.5-5.0 L (test code = 1145) ALKALINE PHOSPHATASE 506 U/L 40-150 H (BEAKER) (test code = 346) BILIRUBIN TOTAL 1.2 mg/dL 0.2-1.2 (BEAKER) (test code = 377) SODIUM (BEAKER) (test 138 meq/L 136-145 code = 381) POTASSIUM (BEAKER) 3.5 meq/L 3.5-5.1 (test code = 379) CHLORIDE (BEAKER) 112 meq/L 98-107 H (test code = 382) CO2 (BEAKER) (test 17 meq/L 22-29 L code = 355) BLOOD UREA NITROGEN 19 mg/dL 7-21 (BEAKER) (test code = 354) CREATININE (BEAKER) 1.56 mg/dL 0.57-1.25 H (test code = 358) GLUCOSE RANDOM 90 mg/dL 70-105 (BEAKER) (test code = 652) CALCIUM (BEAKER) 7.8 mg/dL 8.4-10.2 L (test code = 697) AST (SGOT) (BEAKER) 32 U/L 5-34 (test code = 353) ALT (SGPT) (BEAKER) 27 U/L 6-55 (test code = 347) EGFR (BEAKER) (test 45 mL/min/1.73 ESTIMA ROBERTA GFR IS code = 1092) sq m NOT ACCURATE CREATININE CLEARANCE IN PREDICTING GLOMERULAR FILTRATION RATE . ESTIMATED GFR I S NOT APPLICABLE FOR DIALYSIS PATIEN TS. Leather Belt Shaper ID [place] PABLO MPROTHROMBIN TIME/[id number] 07:53:00 Test Item Value Reference Range Interpretation Comments PROTIME (BEAKER) (test code = 18.0 seconds 11.9-14.2 H 759) INR (BEAKER) (test code = 370) 1.5 <=5.9 Effective 11/26/2018: PT Reference Range ChangeNew: 11.9-14.2 Previous: 11.7- 14.7RECOMMENDED COUMADIN/WARFARIN INR THERAPY RANGESSTANDARD DOSE: 2.0-3.0 Includes: PROPHYLAXIS for venous thrombosis, systemic embolization; TREATMENT for venous thrombosis and/or pulmonary embolus.HIGH RISK: Target INR is2.5-3.5 for patients wiht mechanical heart valves.[id number] 07:53:00 Test Item Value Reference Range Interpretation Comments PARTIAL THROMBOPLASTIN TIME 36.5 seconds 22.5-36.0 H (BEAKER) (test code = 760) CBC W/PLT COUNT & AUTO [id number] 07:45:00 Test Item Value Reference Range Interpretation Comments WHITE BLOOD CELL COUNT (BEAKER) 4.9 K/ L 3.5-10.5 (test code = 775) RED BLOOD CELL COUNT (BEAKER) 2.54 M/ L 4.63-6.08 L (test code = 761) HEMOGLOBIN (BEAKER) (test code = 7.9 GM/DL 13.7-17.5 L 410) HEMATOCRIT (BEAKER) (test code = 24.2 % 40.1-51.0 L 411) MEAN CORPUSCULAR VOLUME (BEAKER) 95.3 fL 79.0-92.2 H (test code = 753) MEAN CORPUSCULAR HEMOGLOBIN 31.1 pg 25.7-32.2 (BEAKER) (test code = 751) MEAN CORPUSCULAR HEMOGLOBIN CONC 32.6 GM/DL 32.3-36.5 (BEAKER) (test code = 752) RED CELL DISTRIBUTION WIDTH 16.0 % 11.6-14.4 H (BEAKER) (test code = 412) PLATELET COUNT (BEAKER) (test code 70 K/CU MM 150-450 L = 756) MEAN PLATELET VOLUME (BEAKER) 11.4 fL 9.4-12.4 (test code = 754) NUCLEATED RED BLOOD CELLS (BEAKER) 0 /100 WBC 0-0 (test code = 413) NEUTROPHILS RELATIVE PERCENT 81 % (BEAKER) (test code = 429) LYMPHOCYTES RELATIVE PERCENT 10 % (BEAKER) (test code = 430) MONOCYTES RELATIVE PERCENT 7 % (BEAKER) (test code = 431) EOSINOPHILS RELATIVE PERCENT 1 % (BEAKER) (test code = 432) BASOPHILS RELATIVE PERCENT 1 % (BEAKER) (test code = 437) NEUTROPHILS ABSOLUTE COUNT 3.92 K/ L 1.78-5.38 (BEAKER) (test code = 670) LYMPHOCYTES ABSOLUTE COUNT 0.49 K/ L 1.32-3.57 L (BEAKER) (test code = 414) MONOCYTES ABSOLUTE COUNT (BEAKER) 0.32 K/ L 0.30-0.82 (test code = 415) EOSINOPHILS ABSOLUTE COUNT 0.06 K/ L 0.04-0.54 (BEAKER) (test code = 416) BASOPHILS ABSOLUTE COUNT (BEAKER) 0.03 K/ L 0.01-0.08 (test code = 417) IMMATURE GRANULOCYTES-RELATIVE 1 % 0-1 PERCENT (BEAKER) (test code = 2801) TACROLIMUS [id number] 11:25:00 Test Item Value Reference Range Interpretation Comments TACROLIMUS BLOOD (BEAKER) (test 5.7 ng/mL 10.0-20.0 L code = 657) Leather Belt Shaper [place] - ETTRICK FBASIC METABOLIC [id number] 07:04:00 Test Item Value Reference Range Interpretation Comments SODIUM (BEAKER) 141 meq/L 136-145 (test code = 381) POTASSIUM (BEAKER) 4.1 meq/L 3.5-5.1 Specimen slightly (test code = 379) hemolyzed CHLORIDE (BEAKER) 119 meq/L 98-107 H (test code = 382) CO2 (BEAKER) (test 15 meq/L 22-29 L code = 355) BLOOD UREA NITROGEN 30 mg/dL 7-21 H (BEAKER) (test code = 354) CREATININE (BEAKER) 1.55 mg/dL 0.57-1.25 H Specimen slightly (test code = 358) hemolyzed GLUCOSE RANDOM 77 mg/dL 70-105 (BEAKER) (test code = 652) CALCIUM (BEAKER) 7.7 mg/dL 8.4-10.2 L (test code = 697) EGFR (BEAKER) (test 46 mL/min/1.73 ESTIMA ROBERTA GFR IS code = 1092) sq m NOT ACCURATE CREATININE CLEARANCE IN PREDICTING GLOMERULAR FILTRATION RATE . ESTIMATED GFR I S NOT APPLICABLE FOR DIALYSIS PATIEN TS. Leather Belt Shaper ID - [id number] 06:37:00 Test Item Value Reference Range Interpretation Comments PARTIAL THROMBOPLASTIN TIME 33.2 seconds 22.5-36.0 (BEAKER) (test code = 760) PROTHROMBIN [id number] 06:36:00 Test Item Value Reference Range Interpretation Comments PROTIME (BEAKER) (test code = 16.9 seconds 11.9-14.2 H 759) INR (BEAKER) (test code = 370) 1.4 <=5.9 Effective 11/26/2018: PT Reference Range ChangeNew: 11.9-14.2 Previous: 11.7- 14.7RECOMMENDED COUMADIN/WARFARIN INR THERAPY RANGESSTANDARD DOSE: 2.0-3.0 Includes: PROPHYLAXIS for venous thrombosis, systemic embolization; TREATMENT for venous thrombosis and/or pulmonary embolus.HIGH RISK: Target INR is2.5-3.5 for patients wiht mechanical heart valves.CBC W/PLT COUNT & AUTO [id number] 06:26:00 Test Item Value Reference Range Interpretation Comments WHITE BLOOD CELL COUNT 5.6 K/ L 3.5-10.5 (BEAKER) (test code = 775) RED BLOOD CELL COUNT 2.42 M/ L 4.63-6.08 L (BEAKER) (test code = 761) HEMOGLOBIN (BEAKER) 7.6 GM/DL 13.7-17.5 L (test code = 410) HEMATOCRIT (BEAKER) 24.0 % 40.1-51.0 L (test code = 411) MEAN CORPUSCULAR 99.2 fL 79.0-92.2 H DISCORDANT MCV RESULT VOLUME (BEAKER) (test COMPAR ED TO PREVIOUS code = 753) RESULT; CLINICA L CORRELATION REQ UIRED. MEAN CORPUSCULAR 31.4 pg 25.7-32.2 HEMOGLOBIN (BEAKER) (test code = 751) MEAN CORPUSCULAR 31.7 GM/DL 32.3-36.5 L HEMOGLOBIN CONC (BEAKER) (test code = 752) RED CELL DISTRIBUTION 16.6 % 11.6-14.4 H WIDTH (BEAKER) (test code = 412) PLATELET COUNT 74 K/CU MM 150-450 L (BEAKER) (test code = 756) MEAN PLATELET VOLUME 11.8 fL 9.4-12.4 (BEAKER) (test code = 754) NUCLEATED RED BLOOD 0 /100 WBC 0-0 CELLS (BEAKER) (test code = 413) NEUTROPHILS RELATIVE 84 % PERCENT (BEAKER) (test code = 429) LYMPHOCYTES RELATIVE 10 % PERCENT (BEAKER) (test code = 430) MONOCYTES RELATIVE 4 % PERCENT (BEAKER) (test code = 431) EOSINOPHILS RELATIVE 1 % PERCENT (BEAKER) (test code = 432) BASOPHILS RELATIVE 1 % PERCENT (BEAKER) (test code = 437) NEUTROPHILS ABSOLUTE 4.71 K/ L 1.78-5.38 COUNT (BEAKER) (test code = 670) LYMPHOCYTES ABSOLUTE 0.54 K/ L 1.32-3.57 L COUNT (BEAKER) (test code = 414) MONOCYTES ABSOLUTE 0.24 K/ L 0.30-0.82 L COUNT (BEAKER) (test code = 415) EOSINOPHILS ABSOLUTE 0.08 K/ L 0.04-0.54 COUNT (BEAKER) (test code = 416) BASOPHILS ABSOLUTE 0.03 K/ L 0.01-0.08 COUNT (BEAKER) (test code = 417) IMMATURE 0 % 0-1 GRANULOCYTES-RELATIVE PERCENT (BEAKER) (test code = 2801) U/S, HEPATIC PORTAL VESSEL WITH [id number] 22:44:00Referring: Dr. Yary Fernando for exam:->Assess for portal vein thrombusFINAL REPORT TECHNIQUE: Grayscale ultrasound of the abdomen with color Doppler and spectral Doppler ultrasound of the portal/hepatic vasculature. INDICATION: Assess for portal vein thrombus. COMPARISON: Ultrasound from 04/22/2019. MRI from 05/13/2019. FINDINGS: LIVER: Nodular liver contour. No focal liver lesions. HEPATIC VASCULATURE: Portal veins are patent with normal waveform and directionality. Flow velocity in the main portal vein is within normal limits. The hepatic veins and confluence are patent. The main portal vein measures 1.6 cm in diameter. The left hepatic artery was unable to be visualized. The hepatic arterial resistive indices measure 0.7 on the right hepatic artery and 0.8 in the proper hepatic artery. The proper hepatic arterial acceleration time measures 0.04 seconds. BILIARY:Gallbladder: The gallbladder is filled with stones. No gallbladder distention. Mild gallbladder wall thickening may be related to the portal hypertension. Negative sonographic Mur phy sign.Common bile duct measures 0.4 cm, within normal limits. No intrahepatic biliary ductal dilatation. PANCREAS: Incompletely visualized due to overlying bowel gas. The partially visualized pancreatic neck and body are normal. SPLEEN: Spleen is enlarged at 16.8 cm in length. PERITONEUM: No free fluid. KIDNEYS: The kidneys are small. The right kidney measures 8.4 x 3.8 x 3.7 cm, and the left kidney measures 9.9 x 3.4 x 3 cm. No hydronephrosis. No sonographically evident solid mass lesion. MIDLINE VASCULATURE: The visualized inferior vena cava is patent. The maximum visualized aortic diameter is2.2 cm. Splenic artery and vein are patent. IMPRESSION: 1.The portal venous system is patent. 2.The left hepatic artery was unable to be visualized. The mildly elevated resistive index in the proper hepatic artery is likely due to the cirrhosis. 3.Cirrhosis with sequelae of portal hypertension including small volume ascites and moderate splenomegaly. 4.Cholelithiasis. The gallbladder wall thickening is likely related to the portal hypertension. No definitive signs of acute cholecystitis. 5.The kidneys are small. Signed: Mina Mcmahan MDReport Verified Date/Time: 08/25/2019 22:44:25 Reading Location: [address] Consult Reading Room US Hepatic Portal Vessel with [id number] 22:44:00Interface, External Ris In - 08/25/2019 10:47 PM CSTFINAL REPORT TECHNIQUE: Grayscale ultrasound of the abdomen with color Doppler and spectral Doppler ultrasound of the portal/hepatic vasculature. INDICATION: Assess for portal vein thrombus. COMPARISON: Ultrasound from 04/22/2019. MRI from 05/13/2019. FINDINGS: LIVER: Nodular liver contour. No focal liver lesions. HEPATIC VASCULATURE: Portal veins are patent with normal waveform and directionality. Flow velocity in the main p ortal vein is within normal limits. The hepatic veins and confluence are patent. The main portal vein measures 1.6 cm in diameter. The left hepatic artery was unable to be visualized. The hepatic arterial resistive indices measure 0.7 on the right hepatic artery and 0.8 in the proper hepatic artery. The proper hepatic arterial acceleration time measures 0.04 seconds. BILIARY:Gallbladder: The gallbladder is filled with stones. No gallbladder distention. Mild gallbladder wall thickening may be relatedto the portal hypertension. Negative sonographic Baltazar sign.Common bile duct measures 0.4 cm, within normal limits. No intrahepatic biliary ductal dilatation. PANCREAS: Incompletely visualized due to overlying bowel gas. The partially visualized pancreatic neck and body are normal. SPLEEN: Spleen is enlarged at 16.8 cm in length. PERITONEUM: No free fluid. KIDNEYS: The kidneys are small. The right kidney measures 8.4 x 3.8 x 3.7 cm, and the left kidney measures 9.9 x 3.4 x 3 cm. No hydronephrosis. No sonographically evident solid mass lesion. MIDLINE VASCULATURE: The visualized inferior vena cava is patent. The maximum visualized aortic diameter is 2.2 cm. Splenic artery and vein are patent. IMPRESSION: 1.The portal venous system is patent. 2.The left hepatic artery was unable to be visualized. The mildly elevated resistive index in the proper hepatic artery is likely due to the cirrhosis. 3.Cirrhosis with sequelae of portal hypertension including small volume ascites and moderate splenomegaly. 4.Cholelithiasis. The gallbladder wall thickening is likely related to the portal hypertension. No definitive signs of acute cholecystitis. 5.The kidneys are small. Signed: Mina Mcmahan [facility] Verified Date/Time: 08/25/2019 22:44:25 Reading Location: [facility] C013W Consult Reading Room [facility] W/PLT COUNT & AUTO DIFFERENTIAL 2019-08-25 10:38:00 Test Item Value Reference Range Interpretation Comments WHITE BLOOD CELL COUNT (BEAKER) 8.3 K/ L 3.5-10.5 (test code = 775) RED BLOOD CELL COUNT (BEAKER) 2.52 M/ L 4.63-6.08 L (test code = 761) HEMOGLOBIN (BEAKER) (test code = 7.7 GM/DL 13.7-17.5 L 410) HEMATOCRIT (BEAKER) (test code = 24.0 % 40.1-51.0 L 411) MEAN CORPUSCULAR VOLUME (BEAKER) 95.2 fL 79.0-92.2 H (test code = 753) MEAN CORPUSCULAR HEMOGLOBIN 30.6 pg 25.7-32.2 (BEAKER) (test code = 751) MEAN CORPUSCULAR HEMOGLOBIN CONC 32.1 GM/DL 32.3-36.5 L (BEAKER) (test code = 752) RED CELL DISTRIBUTION WIDTH 16.4 % 11.6-14.4 H (BEAKER) (test code = 412) PLATELET COUNT (BEAKER) (test code 70 K/CU MM 150-450 L = 756) MEAN PLATELET VOLUME (BEAKER) 10.6 fL 9.4-12.4 (test code = 754) NUCLEATED RED BLOOD CELLS (BEAKER) 0 /100 WBC 0-0 (test code = 413) (CELLAVISION MANUAL DIFF)2019-08-25 10:38:00 Test Item Value Reference Range Interpretation Comments NEUTROPHILS - REL 81 % (CELLAVISION)(BEAKER) (test code = 2816) LYMPHOCYTES - REL 3 % (CELLAVISION)(BEAKER) (test code = 2817) MONOCYTES - REL 1 % (CELLAVISION)(BEAKER) (test code = 2818) EOSINOPHILS - REL 1 % (CELLAVISION)(BEAKER) (test code = 2819) BANDS - REL (CELLAVISION)(BEAKER) 14 % 0-10 H (test code = 2826) NEUTROPHILS - ABS 6.72 K/ul 1.78-5.38 H (CELLAVISION)(BEAKER) (test code = 2830) LYMPHOCYTES - ABS 0.25 K/ul 1.32-3.57 L (CELLAVISION)(BEAKER) (test code = 2831) MONOCYTES - ABS 0.08 K/uL 0.30-0.82 L (CELLAVISION)(BEAKER) (test code = 2832) EOSINOPHILS - ABS 0.08 K/uL 0.04-0.54 (CELLAVISION)(BEAKER) (test code = 2834) BANDS - ABS (CELLAVISION)(BEAKER) 1.16 K/uL 0.00-0.80 H (test code = 2840) TOTAL COUNTED (BEAKER) (test code 100 = 1351) PLT MORPHOLOGY (BEAKER) (test Normal code = 486) DOHLE BODIES (BEAKER) (test code Present = 359) TOXIC GRANULATION (BEAKER) (test Present code = 771) HYPOCHROMIA (BEAKER) (test code = 1+ few 963) ANISOCYTOSIS (BEAKER) (test code 1+ few = 961) MACROCYTES (BEAKER) (test code = 1+ few 964) POIKILOCYTES (BEAKER) (test code 2+ moderate = 966) ARTIFACT (CELLAVISION)(BEAKER) Present (test code = 3432) HELMET CELLS 2+ moderate (CELLAVISION)(BEAKER) (test code = 3434) PLATELET CONCENTRATION Decreased (CELLAVISION)(BEAKER) (test code = 3438) Leather Belt Shaper ID - Ade Lucero comments: Slide comments:TACROLIMUS [id number] 09:27:00 Test Item Value Reference Range Interpretation Comments TACROLIMUS BLOOD (BEAKER) (test 7.6 ng/mL 10.0-20.0 L code = 657) Leather Belt Shaper ID - MARCELLE FBASIC METABOLIC [id number] 08:01:00 Test Item Value Reference Range Interpretation Comments SODIUM (BEAKER) 141 meq/L 136-145 (test code = 381) POTASSIUM (BEAKER) 4.2 meq/L 3.5-5.1 (test code = 379) CHLORIDE (BEAKER) 117 meq/L 98-107 H (test code = 382) CO2 (BEAKER) (test 19 meq/L 22-29 L code = 355) BLOOD UREA NITROGEN 30 mg/dL 7-21 H (BEAKER) (test code = 354) CREATININE (BEAKER) 1.59 mg/dL 0.57-1.25 H (test code = 358) GLUCOSE RANDOM 79 mg/dL 70-105 (BEAKER) (test code = 652) CALCIUM (BEAKER) 7.9 mg/dL 8.4-10.2 L (test code = 697) EGFR (BEAKER) (test 44 mL/min/1.73 ESTIMA ROBERTA GFR IS code = 1092) sq m NOT ACCURATE CREATININE CLEARANCE IN PREDICTING GLOMERULAR FILTRATION RATE . ESTIMATED GFR I S NOT APPLICABLE FOR DIALYSIS PATIEN TS. Leather Belt Shaper ID - SAMY MPROTHROMBIN TIME/[id number] 07:12:00 Test Item Value Reference Range Interpretation Comments PROTIME (BEAKER) (test code = 17.4 seconds 11.9-14.2 H 759) INR (BEAKER) (test code = 370) 1.5 <=5.9 Effective 11/26/2018: PT Reference Range ChangeNew: 11.9-14.2 Previous: 11.7- 14.7RECOMMENDED COUMADIN/WARFARIN INR THERAPY RANGESSTANDARD DOSE: 2.0-3.0 Includes: PROPHYLAXIS for venous thrombosis, systemic embolization; TREATMENT for venous thrombosis and/or pulmonary embolus.HIGH RISK: Target INR is2.5-3.5 for patients wiht mechanical heart valves.[id number] 07:12:00 Test Item Value Reference Range Interpretation Comments PARTIAL THROMBOPLASTIN TIME 33.9 seconds 22.5-36.0 (BEAKER) (test code = 760) CBC W/PLT COUNT & AUTO [id number] 11:28:00 Test Item Value Reference Range Interpretation Comments WHITE BLOOD CELL COUNT (BEAKER) 1.9 K/ L 3.5-10.5 L (test code = 775) RED BLOOD CELL COUNT (BEAKER) 2.40 M/ L 4.63-6.08 L (test code = 761) HEMOGLOBIN (BEAKER) (test code = 7.5 GM/DL 13.7-17.5 L 410) HEMATOCRIT (BEAKER) (test code = 23.0 % 40.1-51.0 L 411) MEAN CORPUSCULAR VOLUME (BEAKER) 95.8 fL 79.0-92.2 H (test code = 753) MEAN CORPUSCULAR HEMOGLOBIN 31.3 pg 25.7-32.2 (BEAKER) (test code = 751) MEAN CORPUSCULAR HEMOGLOBIN CONC 32.6 GM/DL 32.3-36.5 (BEAKER) (test code = 752) RED CELL DISTRIBUTION WIDTH 16.5 % 11.6-14.4 H (BEAKER) (test code = 412) PLATELET COUNT (BEAKER) (test code 58 K/CU MM 150-450 L = 756) MEAN PLATELET VOLUME (BEAKER) 11.4 fL 9.4-12.4 (test code = 754) NUCLEATED RED BLOOD CELLS (BEAKER) 0 /100 WBC 0-0 (test code = 413) (CELLAVISION MANUAL DIFF)2019-08-24 11:28:00 Test Item Value Reference Range Interpretation Comments NEUTROPHILS - REL 79 % (CELLAVISION)(BEAKER) (test code = 2816) LYMPHOCYTES - REL 14 % (CELLAVISION)(BEAKER) (test code = 2817) MONOCYTES - REL 4 % (CELLAVISION)(BEAKER) (test code = 2818) BASOPHILS - REL 1 % (CELLAVISION)(BEAKER) (test code = 2820) BANDS - REL (CELLAVISION)(BEAKER) 2 % 0-10 (test code = 2826) NEUTROPHILS - ABS 1.50 K/ul 1.78-5.38 L (CELLAVISION)(BEAKER) (test code = 2830) LYMPHOCYTES - ABS 0.27 K/ul 1.32-3.57 L (CELLAVISION)(BEAKER) (test code = 2831) MONOCYTES - ABS 0.08 K/uL 0.30-0.82 L (CELLAVISION)(BEAKER) (test code = 2832) BASOPHILS - ABS 0.02 K/uL 0.01-0.08 (CELLAVISION)(BEAKER) (test code = 2835) BANDS - ABS (CELLAVISION)(BEAKER) 0.04 K/uL 0.00-0.80 (test code = 2840) TOTAL COUNTED (BEAKER) (test code 100 = 1351) WBC MORPHOLOGY (BEAKER) (test Normal code = 487) PLT MORPHOLOGY (BEAKER) (test Normal code = 486) ANISOCYTOSIS (BEAKER) (test code 1+ few = 961) MICROCYTES (BEAKER) (test code = 1+ few 965) POIKILOCYTES (BEAKER) (test code 2+ moderate = 966) OVALOCYTES (BEAKER) (test code = 2+ moderate 477) ARTIFACT (CELLAVISION)(BEAKER) Present (test code = 3432) PLATELET CONCENTRATION Decreased (CELLAVISION)(BEAKER) (test code = 3438) Leather Belt Shaper ID - Elisabet OverholtUser comments: Slide comments:HEPATIC FUNCTION PANEL 2019-08-24 07:38:00 Test Item Value Reference Range Interpretation Comments TOTAL PROTEIN (BEAKER) (test code = 4.4 gm/dL 6.0-8.3 L 770) ALBUMIN (BEAKER) (test code = 1145) 3.0 g/dL 3.5-5.0 L BILIRUBIN TOTAL (BEAKER) (test code 0.7 mg/dL 0.2-1.2 = 377) BILIRUBIN DIRECT (BEAKER) (test 0.4 mg/dL 0.1-0.5 code = 706) ALKALINE PHOSPHATASE (BEAKER) (test 415 U/L 40-150 H code = 346) AST (SGOT) (BEAKER) (test code = 36 U/L 5-34 H 353) ALT (SGPT) (BEAKER) (test code = 35 U/L 6-55 347) Leather Belt Shaper ID - MARCELLE FBASIC METABOLIC [id number] 07:38:00 Test Item Value Reference Range Interpretation Comments SODIUM (BEAKER) 142 meq/L 136-145 (test code = 381) POTASSIUM (BEAKER) 4.2 meq/L 3.5-5.1 (test code = 379) CHLORIDE (BEAKER) 118 meq/L 98-107 H (test code = 382) CO2 (BEAKER) (test 18 meq/L 22-29 L code = 355) BLOOD UREA NITROGEN 31 mg/dL 7-21 H (BEAKER) (test code = 354) CREATININE (BEAKER) 1.58 mg/dL 0.57-1.25 H (test code = 358) GLUCOSE RANDOM 76 mg/dL 70-105 (BEAKER) (test code = 652) CALCIUM (BEAKER) 8.0 mg/dL 8.4-10.2 L (test code = 697) EGFR (BEAKER) (test 45 mL/min/1.73 ESTIMA ROBERTA GFR IS code = 1092) sq m NOT ACCURATE CREATININE CLEARANCE IN PREDICTING GLOMERULAR FILTRATION RATE . ESTIMATED GFR I S NOT APPLICABLE FOR DIALYSIS PATIEN TS. Leather Belt Shaper ID [place] IBANEZ FGAMMA GLUTAMYL TRANSFERASE (GGT)2019-08-24 07:38:00 Test Item Value Reference Range Interpretation Comments GAMMA GLUTAMYL TRANSFERASE (BEAKER) 151 U/L 9-64 H (test code = 364) Leather Belt Shaper ID [place] IBANEZ FU/S, ABDOMINAL, [id number] 15:29:00Referring: Dr. Yary Eastman Labs to be ordered:->Other (please add comment) cell count Labs to be ordered:->Body Fluid Culture (w/Gram Stain, C\\T\\S) Reason for exam:->ASCITES Reason for exam:->GROIN SWELLINGFINAL REPORT Limited abdominal ultrasound dated 08/23/2019 COMMENT: Limited ult rasound examination of the abdomen was performed. No ascites was seen in the abdomen. Planned ultrasound guided paracentesis was not performed. IMPRESSION: No ascites. Testicular ultrasound date 08/23/2019 Comment: Real-time ultrasound examination of the testis were obtained. Right testes measures 4.0x 2.6 x 2.2 cm. Left testes measures 3.9 x 32.4 x 3 point cm. Both testis are homogeneous without focal mass. Doppler ultrasound demonstrates patent arterial and venous flow in both testis. Right epididymis measures 1.4 x 0.7 cm. Left epididymis measures 1.5 x 0.7 cm. There is bilateral hydrocele. Edema is seen involving the scrotum. Impression: Bilateral hydroceles and scrotal edema. Signed: Sumi Harpereport Verified Date/Time: 08/23/2019 15:29:24 Reading Location: [facility] C013X Ortho Consult Reading Room U/S, TESTICULAR, WITH [id number] 15:29:00 Referring: Dr. Yary Fernando for exam:->ASCITESReason for exam:- >GROIN SWELLINGFINAL REPORT Limited abdominal ultrasound dated 08/23/2019 COMMENT: Limited ultrasound examination of the abdomen was performed. No ascites was seen in the abdomen. Planned ultrasound guided paracentesis was not performed. IMPRESSION: No ascites. Testicular ultrasound date 08/23/2019 Comment: Real-time ultrasound examination of the testis were obtained. Right testes measures 4.0x 2.6 x 2.2 cm. Left testes measures 3.9 x 32.4 x 3 point cm. Both testis are homogeneous without focal mass. Doppler ultrasound demonstrates patent arterial and venous flow in both testis. Right epididymis measures 1.4 x 0.7 cm. Left epididymis measures 1.5 x 0.7 cm. There is bilateral hydrocele. Edema is seen involving the scrotum. Impression: Bilateral hydroceles and scrotal edema. Signed: Ken Harper MDRfernandoort Verified Date/Time: 08/23/2019 15:29:24 Reading Location: [address] Ortho Consult Reading Room US testicular with [id number] 15:29:00Interface, External Ris In - 08/23/2019 3:31 PM CSTFINAL REPORT Limited abdominal ultrasound dated 08/23/2019 COMMENT: Limited ultrasound examination of the abdomen was performed. No ascites was seen in the abdomen. Planned ultrasound guided paracentesis was not performed. IMPRESSION: No ascites. Testicular ultrasound date 08/23/2019 Comment: Real-time ultrasound examination ofthe testis were obtained. Right testes measures 4.0 x 2.6 x 2.2 cm. Left testes measures 3.9 x 32.4 x 3 point cm. Both testis are homogeneous without focal mass. Doppler ultrasound demonstrates patentarterial and venous flow in both testis. Right epididymis measures 1.4 x 0.7 cm. Left epididymis measures 1.5 x 0.7 cm. There is bilateral hydrocele. Edema is seen involving the scrotum. Impression: Bilateral hydroceles and scrotal edema. Signed: Ken Harper Verified Date/Time: 08/23/2019 15:29:24 Reading Location: [facility] C013X [facility] 2019-08-23 15:29:00Interface, External Ris In - 08/23/2019 3:31 PM CSTFINAL REPORT Limited abdominal ultrasound dated 08/23/2019 COMMENT: Limited ultrasound examination of the abdomen was performed. No ascites was seen in the abdomen. Planned ultrasound guided paracentesis was not performed. IMPRESSION: No ascites. Testicular ultrasound date 08/23/2019 Comment: Real-time ultrasound examination ofthe testis were obtained. Right testes measures 4.0 x 2.6 x 2.2 cm. Left testes measures 3.9 x 32.4 x 3 point cm. Both testis are homogeneous without focal mass. Doppler ultrasound demonstrates patentarterial and venous flow in both testis. Right epididymis measures 1.4 x 0.7 cm. Left epididymis measures 1.5 x 0.7 cm. There is bilateral hydrocele. Edema is seen involving the scrotum. Impression: Bilateral hydroceles and scrotal edema. Signed: Ken Harpereport Verified Date/Time: 08/23/2019 15: 29:24 Reading Location: [address] Ortho Consult Reading Room [facility]inoAmylase2020-02-23 11:14:00 Test Item Value Reference Range Interpretation Comments Amylase (test code = 80 U/L 25-125 1798-8) LATRELL (test code = LATRELL) Leather Belt Shaper ID [place] MARCELLE F Lab Interpretation (test Normal code = 27270-6) [facility] 11:14:00 Test Item Value Reference Range Interpretation Comments LIPASE (BEAKER) (test code = 749) 37 U/L 8-78 Leather Belt Shaper ID [place] IBANEZ [id number] 11:14:00 Test Item Value Reference Range Interpretation Comments AMYLASE (BEAKER) (test code = 349) 80 U/L 25-125 Leather Belt Shaper ID [place] MARCELLE FBASIC METABOLIC [id number] 11:14:00 Test Item Value Reference Range Interpretation Comments SODIUM (BEAKER) 140 meq/L 136-145 (test code = 381) POTASSIUM (BEAKER) 3.9 meq/L 3.5-5.1 (test code = 379) CHLORIDE (BEAKER) 115 meq/L 98-107 H (test code = 382) CO2 (BEAKER) (test 17 meq/L 22-29 L code = 355) BLOOD UREA NITROGEN 26 mg/dL 7-21 H (BEAKER) (test code = 354) CREATININE (BEAKER) 1.80 mg/dL 0.57-1.25 H (test code = 358) GLUCOSE RANDOM 74 mg/dL 70-105 (BEAKER) (test code = 652) CALCIUM (BEAKER) 8.2 mg/dL 8.4-10.2 L (test code = 697) EGFR (BEAKER) (test 38 mL/min/1.73 ESTIMA ROBERTA GFR IS code = 1092) sq m NOT ACCURATE CREATININE CLEARANCE IN PREDICTING GLOMERULAR FILTRATION RATE . ESTIMATED GFR I S NOT APPLICABLE FOR DIALYSIS PATIEN TS. Leather Belt Shaper ID - MARCELLE FHEPATIC FUNCTION [id number] 11:14:00 Test Item Value Reference Range Interpretation Comments TOTAL PROTEIN (BEAKER) (test code = 5.0 gm/dL 6.0-8.3 L 770) ALBUMIN (BEAKER) (test code = 1145) 3.5 g/dL 3.5-5.0 BILIRUBIN TOTAL (BEAKER) (test code 0.6 mg/dL 0.2-1.2 = 377) BILIRUBIN DIRECT (BEAKER) (test 0.3 mg/dL 0.1-0.5 code = 706) ALKALINE PHOSPHATASE (BEAKER) (test 444 U/L 40-150 H code = 346) AST (SGOT) (BEAKER) (test code = 32 U/L 5-34 353) ALT (SGPT) (BEAKER) (test code = 34 U/L 6-55 347) Leather Belt Shaper ID - MARCELLE [id number] 11:09:00 Test Item Value Reference Range Interpretation Comments PARTIAL THROMBOPLASTIN TIME 28.8 seconds 22.5-36.0 (BEAKER) (test code = 760) PROTHROMBIN [id number] 11:08:00 Test Item Value Reference Range Interpretation Comments PROTIME (BEAKER) (test code = 15.7 seconds 11.9-14.2 H 759) INR (BEAKER) (test code = 370) 1.3 <=5.9 Effective 11/26/2018: PT Reference Range ChangeNew: 11.9-14.2 Previous: 11.7- 14.7RECOMMENDED COUMADIN/WARFARIN INR THERAPY RANGESSTANDARD DOSE: 2.0-3.0 Includes: PROPHYLAXIS for venous thrombosis, systemic embolization; TREATMENT for venous thrombosis and/or pulmonary embolus.HIGH RISK: Target INR is2.5-3.5 for patients wiht mechanical heart valves.CBC W/PLT COUNT & AUTO [id number] 10:53:00 Test Item Value Reference Range Interpretation Comments WHITE BLOOD CELL COUNT (BEAKER) 2.6 K/ L 3.5-10.5 L (test code = 775) RED BLOOD CELL COUNT (BEAKER) 2.85 M/ L 4.63-6.08 L (test code = 761) HEMOGLOBIN (BEAKER) (test code = 8.6 GM/DL 13.7-17.5 L 410) HEMATOCRIT (BEAKER) (test code = 28.1 % 40.1-51.0 L 411) MEAN CORPUSCULAR VOLUME (BEAKER) 98.6 fL 79.0-92.2 H (test code = 753) MEAN CORPUSCULAR HEMOGLOBIN 30.2 pg 25.7-32.2 (BEAKER) (test code = 751) MEAN CORPUSCULAR HEMOGLOBIN CONC 30.6 GM/DL 32.3-36.5 L (BEAKER) (test code = 752) RED CELL DISTRIBUTION WIDTH 16.4 % 11.6-14.4 H (BEAKER) (test code = 412) PLATELET COUNT (BEAKER) (test code 75 K/CU MM 150-450 L = 756) MEAN PLATELET VOLUME (BEAKER) 10.7 fL 9.4-12.4 (test code = 754) NUCLEATED RED BLOOD CELLS (BEAKER) 0 /100 WBC 0-0 (test code = 413) NEUTROPHILS RELATIVE PERCENT 73 % (BEAKER) (test code = 429) LYMPHOCYTES RELATIVE PERCENT 16 % (BEAKER) (test code = 430) MONOCYTES RELATIVE PERCENT 8 % (BEAKER) (test code = 431) EOSINOPHILS RELATIVE PERCENT 3 % (BEAKER) (test code = 432) BASOPHILS RELATIVE PERCENT 1 % (BEAKER) (test code = 437) NEUTROPHILS ABSOLUTE COUNT 1.92 K/ L 1.78-5.38 (BEAKER) (test code = 670) LYMPHOCYTES ABSOLUTE COUNT 0.42 K/ L 1.32-3.57 L (BEAKER) (test code = 414) MONOCYTES ABSOLUTE COUNT (BEAKER) 0.20 K/ L 0.30-0.82 L (test code = 415) EOSINOPHILS ABSOLUTE COUNT 0.07 K/ L 0.04-0.54 (BEAKER) (test code = 416) BASOPHILS ABSOLUTE COUNT (BEAKER) 0.02 K/ L 0.01-0.08 (test code = 417) IMMATURE GRANULOCYTES-RELATIVE 0 % 0-1 PERCENT (BEAKER) (test code = 2801) Body fluid cell count with [id number] 14:49:00 Test Item Value Reference Range Interpretation Comments Appearance (test code = 9335-1) Hazy Clear A Color (test code = 6824-7) Straw Colorless, Straw RBCs (test code = 37816-6) 1040 <=1 /cu mm H Adjusted WBC Count (test code = 217 <=5 /cu mm H 64375-0) Lining Cells (test code = 49477-1) 4 <=1 /cu mm H % Segs (test code = 70101-7) 61 % % Lymphs (test code = 63605-7) 23 % % Monos (test code = 72397-1) 15 % % Eos (test code = 02330-7) 1 % % Baso (test code = 41076-6) 0 % Container Body Fluid (test code = EDTA Tube 2873) Lab Interpretation (test code = Abnormal 90887-8) [facility] WITH [id number] 14:49:00 Test Item Value Reference Range Interpretation Comments APPEARANCE FLUID (BEAKER) (test Hazy Clear A code = 510) COLOR FLUID (BEAKER) (test code Straw Colorless, Straw = 511) RBC FLUID (BEAKER) (test code = 1040 /cu mm <=1 H 513) ADJUSTED WBC FLUID (BEAKER) 217 /cu mm <=5 H (test code = 1691) LINING CELLS (BEAKER) (test code 4 /cu mm <=1 H = 1590) NEUTROPHILS FLUID (BEAKER) (test 61 % code = 1656) LYMPHS FLUID (BEAKER) (test code 23 % = 488) MONO/MACROPHAGE FLUID (BEAKER) 15 % (test code = 489) EOSINOPHILS FLUID (BEAKER) (test 1 % code = 491) BASO FLUID (BEAKER) (test code = 0 % 492) CONTAINER BODY FLUID (BEAKER) EDTA Tube (test code = 2873) TACROLIMUS [id number] 14:35:00 Test Item Value Reference Range Interpretation Comments TACROLIMUS BLOOD (BEAKER) (test 6.7 ng/mL 10.0-20.0 L code = 657) Leather Belt Shaper ID - SAMY DAWN/Cassandra, [id number] 13:52:00Referring: Dr. Yary Sears ascitic fluid for cell count and differential If Cr > 1.5, do not remove more than 3.5L of ascitic fluid. If > 3L removed, please administer 200 mL of albumin 25%(50 grams) IV x 1Labs to be ordered:->Other (please add comment)Reason for Exam:->ascitesFINAL REPORT Ultrasound guided paracentesis Clinical History: Ascites. Sedation: None. Tinsmith Apprentice: Aure Huerta PA-C Supervising Physician: Edmund Barraza MD Assistant Finance Manager: None. Estimated Blood Loss: < 1 mL. Specimen: 3500 mL of cloudy yellow fluid, samples sent to laboratory. Technique: [...] evaluated with color Doppler to exclude presence ofblood vessels traversing the area, the skin was prepped and draped in the usual sterile manner. After local anesthesia was achieved with lidocaine, a 5 Chinese one-step catheter was advanced into the peritoneal cavity under ultrasound guidance. After completion of drainage, the catheter was removed. Th ere was no evidence of complication. Impression:Successful ultrasound guided paracentesis. Signed: Edmund Barraza MDReport Verified Date/Time: 08/19/2019 13:52:23 Reading Location: [address] Ultrasound Reading Room US paracentesis 2019-08-19 13:52:00Interface, External Ris In - 08/19/2019 3:16 PM CSTFINAL REPORT Ultrasound guided paracentesis Clinical History: Ascites. Sedation: None. Tinsmith Apprentice: Aure Huerta PA-C Supervising Physician: Edmund Barraza MD Assistant Finance Manager: None. Estimated Blood Loss: < 1mL. Specimen: 3500 mL of cloudy yellow fluid, samples sent to laboratory. Technique: Informed consent was obtained. The risks of pain, bleeding, infection, bowel perforation, injury to adjacent structures, and adverse medication reactions were discussed with the patient. After informed consent wasobtained, the patient's abdomen was scanned. The right lower quadrant of the abdomen was selected for paracentesis. After the largest fluid pocket area was marked, and the anterior abdominal wall wasevaluated with color Doppler to exclude presence of blood vessels traversing the area, the skin was prepped and draped in the usual sterile manner. After local anesthesia was achieved with lidocaine, a 5 Chinese one-step catheter was advanced into the peritoneal cavity under ultrasound guidance. Aftercompletion of drainage, the catheter was removed. There was no evidence of complication. Impression:Successful ultrasound guided paracentesis. Signed: Edmund Barraza MDReport Verified Date/Time: 08/19/2019 13:52:23 Reading Location: [address] Ultrasound Reading [facility] [id number] 13:08:00 Test Item Value Reference Range Interpretation Comments SODIUM (BEAKER) 144 meq/L 136-145 (test code = 381) POTASSIUM (BEAKER) 4.2 meq/L 3.5-5.1 (test code = 379) CHLORIDE (BEAKER) 117 meq/L 98-107 H (test code = 382) CO2 (BEAKER) (test 20 meq/L 22-29 L code = 355) BLOOD UREA NITROGEN 40 mg/dL 7-21 H (BEAKER) (test code = 354) CREATININE (BEAKER) 2.02 mg/dL 0.57-1.25 H (test code = 358) GLUCOSE RANDOM 86 mg/dL 70-105 (BEAKER) (test code = 652) CALCIUM (BEAKER) 8.9 mg/dL 8.4-10.2 (test code = 697) EGFR (BEAKER) (test 34 mL/min/1.73 ESTIMA ROBERTA GFR IS code = 1092) sq m NOT ACCURATE CREATININE CLEARANCE IN PREDICTING GLOMERULAR FILTRATION RATE . ESTIMATED GFR I S NOT APPLICABLE FOR DIALYSIS PATIEN TS. Leather Belt Shaper ID - ROSIANGCBC W/PLT COUNT & AUTO [id number] 12:54:00 Test Item Value Reference Range Interpretation Comments WHITE BLOOD CELL COUNT (BEAKER) 2.8 K/ L 3.5-10.5 L (test code = 775) RED BLOOD CELL COUNT (BEAKER) 2.58 M/ L 4.63-6.08 L (test code = 761) HEMOGLOBIN (BEAKER) (test code = 8.0 GM/DL 13.7-17.5 L 410) HEMATOCRIT (BEAKER) (test code = 25.1 % 40.1-51.0 L 411) MEAN CORPUSCULAR VOLUME (BEAKER) 97.3 fL 79.0-92.2 H (test code = 753) MEAN CORPUSCULAR HEMOGLOBIN 31.0 pg 25.7-32.2 (BEAKER) (test code = 751) MEAN CORPUSCULAR HEMOGLOBIN CONC 31.9 GM/DL 32.3-36.5 L (BEAKER) (test code = 752) RED CELL DISTRIBUTION WIDTH 16.6 % 11.6-14.4 H (BEAKER) (test code = 412) PLATELET COUNT (BEAKER) (test code 59 K/CU MM 150-450 L = 756) MEAN PLATELET VOLUME (BEAKER) 10.7 fL 9.4-12.4 (test code = 754) NUCLEATED RED BLOOD CELLS (BEAKER) 0 /100 WBC 0-0 (test code = 413) NEUTROPHILS RELATIVE PERCENT 77 % (BEAKER) (test code = 429) LYMPHOCYTES RELATIVE PERCENT 13 % (BEAKER) (test code = 430) MONOCYTES RELATIVE PERCENT 8 % (BEAKER) (test code = 431) EOSINOPHILS RELATIVE PERCENT 2 % (BEAKER) (test code = 432) BASOPHILS RELATIVE PERCENT 1 % (BEAKER) (test code = 437) NEUTROPHILS ABSOLUTE COUNT 2.16 K/ L 1.78-5.38 (BEAKER) (test code = 670) LYMPHOCYTES ABSOLUTE COUNT 0.35 K/ L 1.32-3.57 L (BEAKER) (test code = 414) MONOCYTES ABSOLUTE COUNT (BEAKER) 0.22 K/ L 0.30-0.82 L (test code = 415) EOSINOPHILS ABSOLUTE COUNT 0.05 K/ L 0.04-0.54 (BEAKER) (test code = 416) BASOPHILS ABSOLUTE COUNT (BEAKER) 0.02 K/ L 0.01-0.08 (test code = 417) IMMATURE GRANULOCYTES-RELATIVE 0 % 0-1 PERCENT (BEAKER) (test code = 2801) [id number] 11:24:00 Test Item Value Reference Range Interpretation Comments POC-Creatinine (test code 1.9 mg/dL 0.6-1.3 H : TESTED AT [facility] = 1859) [address] [place], [address]: Leather Belt Shaper/Techni demetrice ID = [id number] for SHOULDERSELLE POC-EGFR (test code = 36 mL/min/1.73M2 1860) Lab Interpretation (test Abnormal code = 37670-8) [facility][id number] 11:24:00 Test Item Value Reference Range Interpretation Comments POC-CREATININE 1.9 mg/dL 0.6-1.3 H : TESTED AT [facility] (BEAKER) (test [address] code = 1859) [place], [address]: Leather Belt Shaper/Techni demetrice ID = [id number] for SHOULDERSELLE POC-EGFR (BEAKER) 36 mL/min/1.73M2 (test code = 1860) BODY FLUID CELL COUNT WITH [id number] 19:33:00 Test Item Value Reference Range Interpretation Comments APPEARANCE FLUID (BEAKER) (test Hazy Clear A code = 510) COLOR FLUID (BEAKER) (test code Straw Colorless, Straw = 511) RBC FLUID (BEAKER) (test code = 1000 /cu mm <=1 H 513) ADJUSTED WBC FLUID (BEAKER) 162 /cu mm <=5 H (test code = 1691) LINING CELLS (BEAKER) (test code 2 /cu mm <=1 H = 1590) NEUTROPHILS FLUID (BEAKER) (test 80 % code = 1656) LYMPHS FLUID (BEAKER) (test code 8 % = 488) MONO/MACROPHAGE FLUID (BEAKER) 11 % (test code = 489) EOSINOPHILS FLUID (BEAKER) (test 1 % code = 491) BASO FLUID (BEAKER) (test code = 0 % 492) CONTAINER BODY FLUID (BEAKER) EDTA Tube (test code = 2873) U/S, [id number] 17:37:00Referring: Dr. Yary Sears ascitic fluid for cell count and differential If Cr > 1.5, do not remove more than 3.5L of ascitic fluid. If > 3L removed, please administer 200 mL of albumin 25%(50 grams) IV x 1Labs to be ordered:->Other (please add comment)Reason for Exam:->ascitesFINAL REPORT HISTORY : Ascites Technique/findings:Informed written consent was obtained. Discussion of risks, benefits, and alternatives were made with the patient. The patient expressed understanding and agreed to proceed. A universal timeout was performed prior to starting the procedure. Initial ultrasound images demonstrate moderate to large volume of ascites. A pocket offluid was identified in the right lower quadrant of the abdomen. This area was marked. The area was prepped and draped in the usual sterile fashion. 1% lidocaine was applied to the skin and deep soft tissues. A 5 Chinese one-step catheter was inserted and removed from the peritoneal space and approximately 3.2 liters of clear yellow fluid was aspirated from the abdomen. Specimens were collected for the lab. There were no immediate complications. Impression: Successful ultrasound guided paracentesis with aspiration of 3.2 liters of fluid. Signed: Javed [facility] Verified Date/Time: 08/12/2019 17:37:37 Reading Location: [address] Body Reading Room -[id number] 16:08:00 Test Item Value Reference Range Interpretation Comments POC-CREATININE 2.2 mg/dL 0.6-1.[address] [facility] [address] (BEAKER) (test [address] [place] code = 1859) [address] POC-EGFR (BEAKER) 30 mL/min/1.73M2 (test code = 1860) BODY FLUID CELL COUNT WITH [id number] 15:08:00 Test Item Value Reference Range Interpretation Comments APPEARANCE FLUID (BEAKER) (test Hazy Clear A code = 510) COLOR FLUID (BEAKER) (test code Straw Colorless, Straw = 511) RBC FLUID (BEAKER) (test code = 2244 /cu mm <=1 H 513) ADJUSTED WBC FLUID (BEAKER) 198 /cu mm <=5 H (test code = 1691) LINING CELLS (BEAKER) (test code 0 /cu mm <=1 = 1590) NEUTROPHILS FLUID (BEAKER) (test 47 % code = 1656) LYMPHS FLUID (BEAKER) (test code 23 % = 488) MONO/MACROPHAGE FLUID (BEAKER) 30 % (test code = 489) EOSINOPHILS FLUID (BEAKER) (test 0 % code = 491) BASO FLUID (BEAKER) (test code = 0 % 492) CONTAINER BODY FLUID (BEAKER) EDTA Tube (test code = 2873) U/S, [id number] 13:11:00Referring: Dr. Yary Sears ascitic fluid for cell count and differential If Cr > 1.5, do not remove more than 3.5L of ascitic fluid. If > 3L removed, please administer 200 mL of albumin 25%(50 grams) IV x 1Labs to be ordered:->Other (please add comment)Reason for Exam:->ascitesFINAL REPORT Ultrasound guided paracentesis. Clinical History: Ascites. Sedation: None. Tinsmith Apprentice: Lynn Chávez PA-C Assistant Finance Manager: None. Estimated Blood Loss: < 1 cc. Specimen: 2850 cc of clear yellow fluid, samples sent to laboratory. Technique: Informed consent was obtained. The risks of pain, bleeding, infection, bowel perforation, injury to adjacent structures, and adverse medication reactions were discussed with the patient. After informed consent was obtained, the patient's abdomen was scanned. The RLQ of the abdomen was selected for paracentesis. After the largest fluid pocket area was marked, and the anterior abdominal wall was evaluated with color Doppler to exclude presence of blood vessels traversing the area, the skin was preppedand draped in the usual sterile manner. After local anesthesia was achieved with 2% lidocaine, a 5 Chinese one-step catheter was advanced into the peritoneal cavity under ultrasound guidance. After completion of drainage, the catheter was removed. There was no evidence of complication. Impression:Successful ultrasound guided paracentesis. Signed: Edmund Barrazaort Verified Date/Time: 08/05/2019 13 :11:25 Reading Location: [facility] [id number] Ultrasound Reading Room POCT-CREATININE 2019-08-05 09:57:00 Test Item Value Reference Range Interpretation Comments POC-CREATININE 1.6 mg/dL 0.6-1.[address] [facility] [address] (BEAKER) (test [address] [place] code = 1859) [address] POC-EGFR (BEAKER) 44 mL/min/1.73M2 (test code = 1860) BODY FLUID CELL COUNT WITH [id number] 22:25:00 Test Item Value Reference Range Interpretation Comments APPEARANCE FLUID (BEAKER) (test Hazy Clear A code = 510) COLOR FLUID (BEAKER) (test code Yellow Colorless, Straw A = 511) RBC FLUID (BEAKER) (test code = 2000 /cu mm <=1 H 513) ADJUSTED WBC FLUID (BEAKER) 98 /cu mm <=5 H (test code = 1691) LINING CELLS (BEAKER) (test 1 /cu mm <=1 code = 1590) NEUTROPHILS FLUID (BEAKER) 40 % (test code = 1656) LYMPHS FLUID (BEAKER) (test 46 % code = 488) MONO/MACROPHAGE FLUID (BEAKER) 14 % (test code = 489) EOSINOPHILS FLUID (BEAKER) 0 % (test code = 491) BASO FLUID (BEAKER) (test code 0 % = 492) CONTAINER BODY FLUID (BEAKER) Sterile Vial (test code = 2873) HEPATIC FUNCTION [id number] 17:04:00 Test Item Value Reference Range Interpretation Comments TOTAL PROTEIN (BEAKER) (test code = 4.6 gm/dL 6.0-8.3 L 770) ALBUMIN (BEAKER) (test code = 1145) 3.2 g/dL 3.5-5.0 L BILIRUBIN TOTAL (BEAKER) (test code 0.8 mg/dL 0.2-1.2 = 377) BILIRUBIN DIRECT (BEAKER) (test 0.5 mg/dL 0.1-0.5 code = 706) ALKALINE PHOSPHATASE (BEAKER) (test 379 U/L 40-150 H code = 346) AST (SGOT) (BEAKER) (test code = 41 U/L 5-34 H 353) ALT (SGPT) (BEAKER) (test code = 23 U/L 6-55 347) Leather Belt Shaper ID - PIAYA LBASIC METABOLIC [id number] 17:04:00 Test Item Value Reference Range Interpretation Comments SODIUM (BEAKER) 141 meq/L 136-145 (test code = 381) POTASSIUM (BEAKER) 5.0 meq/L 3.5-5.1 (test code = 379) CHLORIDE (BEAKER) 113 meq/L 98-107 H (test code = 382) CO2 (BEAKER) (test 24 meq/L 22-29 code = 355) BLOOD UREA NITROGEN 20 mg/dL 7-21 (BEAKER) (test code = 354) CREATININE (BEAKER) 1.53 mg/dL 0.57-1.25 H (test code = 358) GLUCOSE RANDOM 103 mg/dL 70-105 (BEAKER) (test code = 652) CALCIUM (BEAKER) 8.0 mg/dL 8.4-10.2 L (test code = 697) EGFR (BEAKER) (test 46 mL/min/1.73 ESTIMA ROBERTA GFR IS code = 1092) sq m NOT ACCURATE CREATININE CLEARANCE IN PREDICTING GLOMERULAR FILTRATION RATE . ESTIMATED GFR I S NOT APPLICABLE FOR DIALYSIS PATIEN TS. Leather Belt Shaper ID - PIAYA LPT/[id number] 17:00:00 Test Item Value Reference Range Interpretation Comments Protime (test code = 16.4 11.9- 14.2 H 5902-2) seconds INR (test code = 1.4 <=5.9 6301-6) PTT (test code = 30.1 22.5- 36.0 14916-6) seconds LATRELL (test code = LATRELL) Effective 11/26/2018: PT Reference Range ChangeNew: 11.9-14.2 Previous: 11.7-14.7 RECOMMENDED COUMADIN/WARFARIN INR THERAPY RANGESSTANDARD DOSE: 2.0-3.0 Includes: PROPHYLAXIS for venous thrombosis, systemic embolization; TREATMENT for venous thrombosis and/or pulmonary embolus.HIGH RISK: Target INR is 2.5-3.5 for patients wiht mechanical heart valves. Lab Interpretation Abnormal (test code = 27815-3) [facility]PT[facility][id number] 17:00:00 Test Item Value Reference Range Interpretation Comments PROTIME (BEAKER) (test code = 16.4 seconds 11.9-14.2 H 759) INR (BEAKER) (test code = 370) 1.4 <=5.9 PARTIAL THROMBOPLASTIN TIME 30.1 seconds 22.5-36.0 (BEAKER) (test code = 760) Effective 11/26/2018: PT Reference Range ChangeNew: 11.9-14.2 Previous: 11.7- 14.7RECOMMENDED COUMADIN/WARFARIN INR THERAPY RANGESSTANDARD DOSE: 2.0-3.0 Includes: PROPHYLAXIS for venous thrombosis, systemic embolization; TREATMENT for venous thrombosis and/or pulmonary embolus.HIGH RISK: Target INR is2.5-3.5 for patients wiht mechanical heart valves.CBC W/PLT COUNT & AUTO [id number] 16:45:00 Test Item Value Reference Range Interpretation Comments WHITE BLOOD CELL COUNT (BEAKER) 3.5 K/ L 3.5-10.5 (test code = 775) RED BLOOD CELL COUNT (BEAKER) 2.92 M/ L 4.63-6.08 L (test code = 761) HEMOGLOBIN (BEAKER) (test code = 8.8 GM/DL 13.7-17.5 L 410) HEMATOCRIT (BEAKER) (test code = 28.3 % 40.1-51.0 L 411) MEAN CORPUSCULAR VOLUME (BEAKER) 96.9 fL 79.0-92.2 H (test code = 753) MEAN CORPUSCULAR HEMOGLOBIN 30.1 pg 25.7-32.2 (BEAKER) (test code = 751) MEAN CORPUSCULAR HEMOGLOBIN CONC 31.1 GM/DL 32.3-36.5 L (BEAKER) (test code = 752) RED CELL DISTRIBUTION WIDTH 17.2 % 11.6-14.4 H (BEAKER) (test code = 412) PLATELET COUNT (BEAKER) (test code 67 K/CU MM 150-450 L = 756) MEAN PLATELET VOLUME (BEAKER) 10.3 fL 9.4-12.4 (test code = 754) NUCLEATED RED BLOOD CELLS (BEAKER) 0 /100 WBC 0-0 (test code = 413) NEUTROPHILS RELATIVE PERCENT 74 % (BEAKER) (test code = 429) LYMPHOCYTES RELATIVE PERCENT 15 % (BEAKER) (test code = 430) MONOCYTES RELATIVE PERCENT 9 % (BEAKER) (test code = 431) EOSINOPHILS RELATIVE PERCENT 2 % (BEAKER) (test code = 432) BASOPHILS RELATIVE PERCENT 1 % (BEAKER) (test code = 437) NEUTROPHILS ABSOLUTE COUNT 2.56 K/ L 1.78-5.38 (BEAKER) (test code = 670) LYMPHOCYTES ABSOLUTE COUNT 0.50 K/ L 1.32-3.57 L (BEAKER) (test code = 414) MONOCYTES ABSOLUTE COUNT (BEAKER) 0.30 K/ L 0.30-0.82 (test code = 415) EOSINOPHILS ABSOLUTE COUNT 0.06 K/ L 0.04-0.54 (BEAKER) (test code = 416) BASOPHILS ABSOLUTE COUNT (BEAKER) 0.02 K/ L 0.01-0.08 (test code = 417) IMMATURE GRANULOCYTES-RELATIVE 0 % 0-1 PERCENT (BEAKER) (test code = 2801) [id number] 15:57:23TorHerann fuentes MD 08/02/2019 7:15 PMParacentesisDate/Time: 08/01/2019 9:32 PMPerformed by: Hernan Stock MDAuthorized by: Hernan Stock MD Consent: Verbal consent obtained. Written consent obtained.Consent given by: patientPatient understanding: patient states understanding of the procedure being performedPatient consent: the patient's understanding of the procedure matches consent givenProcedure consent: procedure consent matches procedure scheduledRelevant documents: relevant docu ments present and verifiedTest results: test results available and properly labeledSite marked: the operative site was markedImaging studies: imaging studies availableRequired items: required blood products, implants, devices, and special equipment availablePatient identity confirmed: verbally with pat ientTime out: Immediately prior to procedure a "time out" was called to verify the correct patient, procedure, equipment, sales support administrator and site/side marked as required.Procedure purpose: therapeuticIndications: abdominal discomfort secondary to ascitesAnesthesia: local infiltration Anesthesia:Local Anesthetic: lidocaine 1% without epinephrineAnesthetic total: 5 mL Sedation:Patient sedated: no Needlegauge: 18Ultrasound guidance: yesPuncture site: right lower quadrantFluid appearance: biliousPatienttolerance: Patient tolerated the procedure well with no immediate complicationsImmediate Post-Procedure Note Date/Time: 08/01/2019 9:10 PMAssistants to the procedure: NonePre-procedure diagnosis: ascitisPost-procedure diagnosis: SameProcedures Performed: ParacentesisSpecimens removed: NoneEstimated blood loss (mL): NoneType of anesthesia: NoneGrafts or Implants: None Comments: 500 cc drainedThere was no large bore paracentecic kit availableGlendale Adventist Medical CenterBLOOD CULTURE 2019-08-01 14:00:00 Test Item Value Reference Range Interpretation Comments CULTURE (BEAKER) (test No growth in 5 days code = 1095) BLOOD [id number] 14:00:00 Test Item Value Reference Range Interpretation Comments CULTURE (BEAKER) (test No growth in 5 days code = 1095) Body fluid [id number] 09:19:00 Test Item Value Reference Range Interpretation Comments Result (test code = 6463-4) No growth Gram Stain Result (test No organisms seen code = 1123) [facility] CenterBODY FLUID CULTURE + GRAM [id number] 09:19:00 Test Item Value Reference Range Interpretation Comments CULTURE (BEAKER) (test No growth code = 1095) GRAM STAIN RESULT 2+ White blood cells (BEAKER) (test code = seen 1123) GRAM STAIN RESULT No organisms seen (BEAKER) (test code = 01804) TACROLIMUS [id number] 11:05:00 Test Item Value Reference Range Interpretation Comments TACROLIMUS BLOOD (BEAKER) (test 9.4 ng/mL 10.0-20.0 L code = 657) Leather Belt Shaper ID - MARCELLE FBASIC METABOLIC [id number] 07:34:00 Test Item Value Reference Range Interpretation Comments SODIUM (BEAKER) 137 meq/L 136-145 (test code = 381) POTASSIUM (BEAKER) 4.5 meq/L 3.5-5.1 (test code = 379) CHLORIDE (BEAKER) 111 meq/L 98-107 H (test code = 382) CO2 (BEAKER) (test 20 meq/L 22-29 L code = 355) BLOOD UREA NITROGEN 21 mg/dL 7-21 (BEAKER) (test code = 354) CREATININE (BEAKER) 1.63 mg/dL 0.57-1.25 H (test code = 358) GLUCOSE RANDOM 87 mg/dL 70-105 (BEAKER) (test code = 652) CALCIUM (BEAKER) 7.7 mg/dL 8.4-10.2 L (test code = 697) EGFR (BEAKER) (test 43 mL/min/1.73 ESTIMA ROBERTA GFR IS code = 1092) sq m NOT ACCURATE CREATININE CLEARANCE IN PREDICTING GLOMERULAR FILTRATION RATE . ESTIMATED GFR I S NOT APPLICABLE FOR DIALYSIS PATIEN TS. Leather Belt Shaper ID - CASEY [id number] 07:30:00 Test Item Value Reference Range Interpretation Comments PHOSPHORUS (BEAKER) (test code = 2.8 mg/dL 2.3-4.7 604) Leather Belt Shaper ID - CASEY [id number] 07:30:00 Test Item Value Reference Range Interpretation Comments MAGNESIUM (BEAKER) (test code = 1.7 mg/dL 1.6-2.6 627) Leather Belt Shaper ID - CASEY MHEPATIC FUNCTION [id number] 07:30:00 Test Item Value Reference Range Interpretation Comments TOTAL PROTEIN (BEAKER) (test code = 4.5 gm/dL 6.0-8.3 L 770) ALBUMIN (BEAKER) (test code = 1145) 3.1 g/dL 3.5-5.0 L BILIRUBIN TOTAL (BEAKER) (test code 0.8 mg/dL 0.2-1.2 = 377) BILIRUBIN DIRECT (BEAKER) (test 0.4 mg/dL 0.1-0.5 code = 706) ALKALINE PHOSPHATASE (BEAKER) (test 348 U/L 40-150 H code = 346) AST (SGOT) (BEAKER) (test code = 27 U/L 5-34 353) ALT (SGPT) (BEAKER) (test code = 18 U/L 6-55 347) Leather Belt Shaper ID - CASEY MCBC W/PLT COUNT & AUTO [id number] 07:15:00 Test Item Value Reference Range Interpretation Comments WHITE BLOOD CELL COUNT (BEAKER) 5.1 K/ L 3.5-10.5 (test code = 775) RED BLOOD CELL COUNT (BEAKER) 3.13 M/ L 4.63-6.08 L (test code = 761) HEMOGLOBIN (BEAKER) (test code = 9.6 GM/DL 13.7-17.5 L 410) HEMATOCRIT (BEAKER) (test code = 29.6 % 40.1-51.0 L 411) MEAN CORPUSCULAR VOLUME (BEAKER) 94.6 fL 79.0-92.2 H (test code = 753) MEAN CORPUSCULAR HEMOGLOBIN 30.7 pg 25.7-32.2 (BEAKER) (test code = 751) MEAN CORPUSCULAR HEMOGLOBIN CONC 32.4 GM/DL 32.3-36.5 (BEAKER) (test code = 752) RED CELL DISTRIBUTION WIDTH 17.2 % 11.6-14.4 H (BEAKER) (test code = 412) PLATELET COUNT (BEAKER) (test 110 K/CU MM 150-450 L code = 756) MEAN PLATELET VOLUME (BEAKER) 10.9 fL 9.4-12.4 (test code = 754) NUCLEATED RED BLOOD CELLS 0 /100 WBC 0-0 (BEAKER) (test code = 413) NEUTROPHILS RELATIVE PERCENT 63 % (BEAKER) (test code = 429) LYMPHOCYTES RELATIVE PERCENT 22 % (BEAKER) (test code = 430) MONOCYTES RELATIVE PERCENT 10 % (BEAKER) (test code = 431) EOSINOPHILS RELATIVE PERCENT 4 % (BEAKER) (test code = 432) BASOPHILS RELATIVE PERCENT 1 % (BEAKER) (test code = 437) NEUTROPHILS ABSOLUTE COUNT 3.24 K/ L 1.78-5.38 (BEAKER) (test code = 670) LYMPHOCYTES ABSOLUTE COUNT 1.14 K/ L 1.32-3.57 L (BEAKER) (test code = 414) MONOCYTES ABSOLUTE COUNT (BEAKER) 0.49 K/ L 0.30-0.82 (test code = 415) EOSINOPHILS ABSOLUTE COUNT 0.18 K/ L 0.04-0.54 (BEAKER) (test code = 416) BASOPHILS ABSOLUTE COUNT (BEAKER) 0.06 K/ L 0.01-0.08 (test code = 417) IMMATURE GRANULOCYTES-RELATIVE 0 % 0-1 PERCENT (BEAKER) (test code = 2801) TACROLIMUS [id number] 14:21:00 Test Item Value Reference Range Interpretation Comments TACROLIMUS BLOOD (BEAKER) (test 5.3 ng/mL 10.0-20.0 L code = 657) Leather Belt Shaper ID - AAHAMIDBASIC METABOLIC [id number] 07:26:00 Test Item Value Reference Range Interpretation Comments SODIUM (BEAKER) 137 meq/L 136-145 (test code = 381) POTASSIUM (BEAKER) 4.8 meq/L 3.5-5.1 (test code = 379) CHLORIDE (BEAKER) 110 meq/L 98-107 H (test code = 382) CO2 (BEAKER) (test 19 meq/L 22-29 L code = 355) BLOOD UREA NITROGEN 23 mg/dL 7-21 H (BEAKER) (test code = 354) CREATININE (BEAKER) 1.61 mg/dL 0.57-1.25 H (test code = 358) GLUCOSE RANDOM 88 mg/dL 70-105 (BEAKER) (test code = 652) CALCIUM (BEAKER) 7.6 mg/dL 8.4-10.2 L (test code = 697) EGFR (BEAKER) (test 44 mL/min/1.73 ESTIMA ROBERTA GFR IS code = 1092) sq m NOT ACCURATE CREATININE CLEARANCE IN PREDICTING GLOMERULAR FILTRATION RATE . ESTIMATED GFR I S NOT APPLICABLE FOR DIALYSIS PATIEN TS. Leather Belt Shaper ID [place] IBANEZ [id number] 07:22:00 Test Item Value Reference Range Interpretation Comments PHOSPHORUS (BEAKER) (test code = 3.4 mg/dL 2.3-4.7 604) Leather Belt Shaper ID - MARCELLE [id number] 07:22:00 Test Item Value Reference Range Interpretation Comments MAGNESIUM (BEAKER) (test code = 1.9 mg/dL 1.6-2.6 627) Leather Belt Shaper ID [place] IBANEZ FHEPATIC FUNCTION [id number] 07:22:00 Test Item Value Reference Range Interpretation Comments TOTAL PROTEIN (BEAKER) (test code = 4.5 gm/dL 6.0-8.3 L 770) ALBUMIN (BEAKER) (test code = 1145) 2.9 g/dL 3.5-5.0 L BILIRUBIN TOTAL (BEAKER) (test code 0.8 mg/dL 0.2-1.2 = 377) BILIRUBIN DIRECT (BEAKER) (test 0.4 mg/dL 0.1-0.5 code = 706) ALKALINE PHOSPHATASE (BEAKER) (test 335 U/L 40-150 H code = 346) AST (SGOT) (BEAKER) (test code = 28 U/L 5-34 353) ALT (SGPT) (BEAKER) (test code = 19 U/L 6-55 347) Leather Belt Shaper ID [place] IBANEZ FCBC W/PLT COUNT & AUTO [id number] 06:59:00 Test Item Value Reference Range Interpretation Comments WHITE BLOOD CELL COUNT (BEAKER) 3.1 K/ L 3.5-10.5 L (test code = 775) RED BLOOD CELL COUNT (BEAKER) 2.95 M/ L 4.63-6.08 L (test code = 761) HEMOGLOBIN (BEAKER) (test code = 9.0 GM/DL 13.7-17.5 L 410) HEMATOCRIT (BEAKER) (test code = 28.4 % 40.1-51.0 L 411) MEAN CORPUSCULAR VOLUME (BEAKER) 96.3 fL 79.0-92.2 H (test code = 753) MEAN CORPUSCULAR HEMOGLOBIN 30.5 pg 25.7-32.2 (BEAKER) (test code = 751) MEAN CORPUSCULAR HEMOGLOBIN CONC 31.7 GM/DL 32.3-36.5 L (BEAKER) (test code = 752) RED CELL DISTRIBUTION WIDTH 16.9 % 11.6-14.4 H (BEAKER) (test code = 412) PLATELET COUNT (BEAKER) (test code 86 K/CU MM 150-450 L = 756) MEAN PLATELET VOLUME (BEAKER) 11.1 fL 9.4-12.4 (test code = 754) NUCLEATED RED BLOOD CELLS (BEAKER) 0 /100 WBC 0-0 (test code = 413) NEUTROPHILS RELATIVE PERCENT 67 % (BEAKER) (test code = 429) LYMPHOCYTES RELATIVE PERCENT 20 % (BEAKER) (test code = 430) MONOCYTES RELATIVE PERCENT 8 % (BEAKER) (test code = 431) EOSINOPHILS RELATIVE PERCENT 4 % (BEAKER) (test code = 432) BASOPHILS RELATIVE PERCENT 1 % (BEAKER) (test code = 437) NEUTROPHILS ABSOLUTE COUNT 2.05 K/ L 1.78-5.38 (BEAKER) (test code = 670) LYMPHOCYTES ABSOLUTE COUNT 0.61 K/ L 1.32-3.57 L (BEAKER) (test code = 414) MONOCYTES ABSOLUTE COUNT (BEAKER) 0.25 K/ L 0.30-0.82 L (test code = 415) EOSINOPHILS ABSOLUTE COUNT 0.11 K/ L 0.04-0.54 (BEAKER) (test code = 416) BASOPHILS ABSOLUTE COUNT (BEAKER) 0.04 K/ L 0.01-0.08 (test code = 417) IMMATURE GRANULOCYTES-RELATIVE 0 % 0-1 PERCENT (BEAKER) (test code = 2801) U/S, [id number] 17:39:00Referring: Dr. Yary Olivas to be ordered:->Body Fluid Culture (w/Gram Stain, C\\T\\S)cell countReason for exam:- >ABDOMINAL PAINReason for exam:->EMESISFINAL REPORT Ultrasound guided paracentesis Clinical History: Ascites. Sedation: None. Tinsmith Apprentice: Aure Huerta PA-C Supervising Physician: Denilson Liao MD Assistant Finance Manager: None. Estimated Blood Loss: < 1 mL. Specimen: 3800 mL of clear yellow fluid, samples sent [...] anesthesia was achieved with lidocaine, a 5 Chinese one-step catheter was advanced into the peritoneal cavity under ultrasound guidance. After completion of drainage, the catheter was removed. T here was no evidence of complication. Impression:Successful ultrasound guided paracentesis. Signed: Denilson Liao MDReport Verified Date/Time: 07/28/2019 17:39:14 Reading Location: [address] Ultrasound Reading Room CMV PCR, [id number] 17:32:00 Test Item Value Reference Range Interpretation Comments CMV VIRAL LOAD - Negative or below <375- >375,000 NEGATIVE (BEAKER) the linear range of copies/mL (test code = 2558) the assay (<375 copies/mL) Cytomegalovirus (CMV) infection [...] viral load canbe evaluated by identifying a 10-fold change, as well as assessing the CMV DNA viral load and the clinical context for each patient.The plasma CMV DNA viral load was detected using quantitative polymerase chain reaction and fluorescent monitoring of a specific hybridized probe. Genetic variation and ot her factors can affect the accuracy of nucleic acid testing. Therefore, the results should be interpreted in light of clinical data. A negative result may not exclude the presence of CMV disease.This test was developed and its performance characteristics determined by the [facility] Path ology Department, Section of Molecular Pathology. It has not been cleared or approved by the U.S. Food and Drug Administration (FDA), since FDA approval is not required for clinical use of the test. Validation was done as required by The Clinical Laboratory Improvement Amendments of 1988.CBC W/PLT COUNT & AUTO [id number] 11:59:00 Test Item Value Reference Range Interpretation Comments WHITE BLOOD CELL COUNT (BEAKER) 1.6 K/ L 3.5-10.5 L (test code = 775) RED BLOOD CELL COUNT (BEAKER) 2.59 M/ L 4.63-6.08 L (test code = 761) HEMOGLOBIN (BEAKER) (test code = 7.8 GM/DL 13.7-17.5 L 410) HEMATOCRIT (BEAKER) (test code = 24.8 % 40.1-51.0 L 411) MEAN CORPUSCULAR VOLUME (BEAKER) 95.8 fL 79.0-92.2 H (test code = 753) MEAN CORPUSCULAR HEMOGLOBIN 30.1 pg 25.7-32.2 (BEAKER) (test code = 751) MEAN CORPUSCULAR HEMOGLOBIN CONC 31.5 GM/DL 32.3-36.5 L (BEAKER) (test code = 752) RED CELL DISTRIBUTION WIDTH 17.0 % 11.6-14.4 H (BEAKER) (test code = 412) PLATELET COUNT (BEAKER) (test code 62 K/CU MM 150-450 L = 756) MEAN PLATELET VOLUME (BEAKER) 11.4 fL 9.4-12.4 (test code = 754) NUCLEATED RED BLOOD CELLS (BEAKER) 0 /100 WBC 0-0 (test code = 413) (CELLAVISION MANUAL DIFF)2019-07-28 11:59:00 Test Item Value Reference Range Interpretation Comments NEUTROPHILS - REL 74 % (CELLAVISION)(BEAKER) (test code = 2816) LYMPHOCYTES - REL 18 % (CELLAVISION)(BEAKER) (test code = 2817) MONOCYTES - REL 4 % (CELLAVISION)(BEAKER) (test code = 2818) EOSINOPHILS - REL 4 % (CELLAVISION)(BEAKER) (test code = 2819) NEUTROPHILS - ABS 1.18 K/ul 1.78-5.38 L (CELLAVISION)(BEAKER) (test code = 2830) LYMPHOCYTES - ABS 0.29 K/ul 1.32-3.57 L (CELLAVISION)(BEAKER) (test code = 2831) MONOCYTES - ABS 0.06 K/uL 0.30-0.82 L (CELLAVISION)(BEAKER) (test code = 2832) EOSINOPHILS - ABS 0.06 K/uL 0.04-0.54 (CELLAVISION)(BEAKER) (test code = 2834) TOTAL COUNTED (BEAKER) (test code = 100 1351) WBC MORPHOLOGY (BEAKER) (test code Normal = 487) LARGE PLT(BEAKER) (test code = Present 2156) ANISOCYTOSIS (BEAKER) (test code = 1+ few 961) MICROCYTES (BEAKER) (test code = 1+ few 965) POIKILOCYTES (BEAKER) (test code = 1+ few 966) OVALOCYTES (BEAKER) (test code = 1+ few 477) ARTIFACT (CELLAVISION)(BEAKER) Present (test code = 3432) PLATELET CONCENTRATION Decreased (CELLAVISION)(BEAKER) (test code = 3438) Leather Belt Shaper ID - Phillip Ghassan comments: Slide comments:TACROLIMUS LEVEL 2019-07-28 10:17:00 Test Item Value Reference Range Interpretation Comments TACROLIMUS BLOOD (BEAKER) (test 3.9 ng/mL 10.0-20.0 L code = 657) Leather Belt Shaper ID - JONES, CHEST, 1 VIEW, NON [id number] 09:31:00Referring: Dr. Yary Fernando for exam:->s/p lung transplantFINAL REPORT TECHNIQUE: Frontal chest radiograph dated 07/28/2019. CLINICAL HI STORY: Status post lung transplant COMPARISON STUDY: Chest radiographs dated 07/06/2019 IMPRESSION:There is improved aeration of the left lung base. Stable airspace opacities seen throughout the right lung. No pleural effusion or pneumothorax. Cardiomediastinal silhouette is normal in size. No pulmonaryedema. Midline sternotomy wires are intact and well aligned. Signed: Micheal Crenshaw Verified Date/Time: 07/28/2019 09:31:05 Reading Location: [facility] Reading Room [id number] 05:42:00 Test Item Value Reference Range Interpretation Comments PHOSPHORUS (BEAKER) (test code = 3.3 mg/dL 2.3-4.7 604) Leather Belt Shaper ID - CASEY [id number] 05:42:00 Test Item Value Reference Range Interpretation Comments MAGNESIUM (BEAKER) (test code = 2.0 mg/dL 1.6-2.6 627) Leather Belt Shaper ID - CASEY MBASIC METABOLIC [id number] 05:42:00 Test Item Value Reference Range Interpretation Comments SODIUM (BEAKER) 139 meq/L 136-145 (test code = 381) POTASSIUM (BEAKER) 4.5 meq/L 3.5-5.1 (test code = 379) CHLORIDE (BEAKER) 112 meq/L 98-107 H (test code = 382) CO2 (BEAKER) (test 23 meq/L 22-29 code = 355) BLOOD UREA NITROGEN 24 mg/dL 7-21 H (BEAKER) (test code = 354) CREATININE (BEAKER) 1.39 mg/dL 0.57-1.25 H (test code = 358) GLUCOSE RANDOM 100 mg/dL 70-105 (BEAKER) (test code = 652) CALCIUM (BEAKER) 8.0 mg/dL 8.4-10.2 L (test code = 697) EGFR (BEAKER) (test 52 mL/min/1.73 ESTIMA ROBERTA GFR IS code = 1092) sq m NOT ACCURATE CREATININE CLEARANCE IN PREDICTING GLOMERULAR FILTRATION RATE . ESTIMATED GFR I S NOT APPLICABLE FOR DIALYSIS PATIEN TS. Leather Belt Shaper ID - CASEY EPATIC FUNCTION [id number] 05:42:00 Test Item Value Reference Range Interpretation Comments TOTAL PROTEIN (BEAKER) (test code = 4.0 gm/dL 6.0-8.3 L 770) ALBUMIN (BEAKER) (test code = 1145) 2.7 g/dL 3.5-5.0 L BILIRUBIN TOTAL (BEAKER) (test code 0.8 mg/dL 0.2-1.2 = 377) BILIRUBIN DIRECT (BEAKER) (test 0.5 mg/dL 0.1-0.5 code = 706) ALKALINE PHOSPHATASE (BEAKER) (test 309 U/L 40-150 H code = 346) AST (SGOT) (BEAKER) (test code = 33 U/L 5-34 353) ALT (SGPT) (BEAKER) (test code = 21 U/L 6-55 347) Leather Belt Shaper ID - CASEY MBODY FLUID CELL COUNT WITH [id number] 19:31:00 Test Item Value Reference Range Interpretation Comments APPEARANCE FLUID (BEAKER) (test Hazy Clear A code = 510) COLOR FLUID (BEAKER) (test code Yellow Colorless, Straw A = 511) RBC FLUID (BEAKER) (test code = 1810 /cu mm <=1 H 513) ADJUSTED WBC FLUID (BEAKER) 78 /cu mm <=5 H (test code = 1691) LINING CELLS (BEAKER) (test code 2 /cu mm <=1 H = 1590) NEUTROPHILS FLUID (BEAKER) (test 41 % code = 1656) LYMPHS FLUID (BEAKER) (test code 26 % = 488) MONO/MACROPHAGE FLUID (BEAKER) 33 % (test code = 489) EOSINOPHILS FLUID (BEAKER) (test 0 % code = 491) BASO FLUID (BEAKER) (test code = 0 % 492) CONTAINER BODY FLUID (BEAKER) EDTA Tube (test code = 1033) POCT OCCULT BLOOD STOOL (GUIAC) [facility] [id number] 13:51:00 Test Item Value Reference Range Interpretation Comments Fecal Occult Blood (Guiac), Positive Negative A POC (test code = 2335-8) QC Result Acceptable?, POC QC Acceptable (test code = 7243796) FOB Card Lot #, POC (test code 14111 4R 08-22 = [id number]) FOB Developer Lot # (test code 822018.CD POSITIVE = [id number]) Lab Interpretation (test code Abnormal = 95844-9) [facility] (BNP)2019-07-27 13:13:00 Test Item Value Reference Range Interpretation Comments B-TYPE NATRIURETIC PEPTIDE (BEAKER) 500 pg/mL 0-100 H (test code = 700) Leather Belt Shaper ID [place] MARCELLE [id number] 13:07:00 Test Item Value Reference Range Interpretation Comments PHOSPHORUS (BEAKER) (test code = 2.5 mg/dL 2.3-4.7 604) Leather Belt Shaper ID [place] MARCELLE [id number] 13:07:00 Test Item Value Reference Range Interpretation Comments MAGNESIUM (BEAKER) (test code = 1.5 mg/dL 1.6-2.6 L 627) Leather Belt Shaper ID [place] IBANEZ FBASIC METABOLIC [id number] 13:07:00 Test Item Value Reference Range Interpretation Comments SODIUM (BEAKER) 140 meq/L 136-145 (test code = 381) POTASSIUM (BEAKER) 4.7 meq/L 3.5-5.1 (test code = 379) CHLORIDE (BEAKER) 111 meq/L 98-107 H (test code = 382) CO2 (BEAKER) (test 21 meq/L 22-29 L code = 355) BLOOD UREA NITROGEN 25 mg/dL 7-21 H (BEAKER) (test code = 354) CREATININE (BEAKER) 1.30 mg/dL 0.57-1.25 H (test code = 358) GLUCOSE RANDOM 84 mg/dL 70-105 (BEAKER) (test code = 652) CALCIUM (BEAKER) 9.0 mg/dL 8.4-10.2 (test code = 697) EGFR (BEAKER) (test 56 mL/min/1.73 ESTIMA ROBERTA GFR IS code = 1092) sq m NOT ACCURATE CREATININE CLEARANCE IN PREDICTING GLOMERULAR FILTRATION RATE . ESTIMATED GFR I S NOT APPLICABLE FOR DIALYSIS PATIEN TS. Leather Belt Shaper ID [place] IBANEZ FHEPATIC FUNCTION [id number] 13:07:00 Test Item Value Reference Range Interpretation Comments TOTAL PROTEIN (BEAKER) (test code = 4.8 gm/dL 6.0-8.3 L 770) ALBUMIN (BEAKER) (test code = 1145) 3.3 g/dL 3.5-5.0 L BILIRUBIN TOTAL (BEAKER) (test code 1.2 mg/dL 0.2-1.2 = 377) BILIRUBIN DIRECT (BEAKER) (test 0.6 mg/dL 0.1-0.5 H code = 706) ALKALINE PHOSPHATASE (BEAKER) (test 395 U/L 40-150 H code = 346) AST (SGOT) (BEAKER) (test code = 40 U/L 5-34 H 353) ALT (SGPT) (BEAKER) (test code = 26 U/L 6-55 347) Leather Belt Shaper ID - MARCELLE [id number] 13:07:00 Test Item Value Reference Range Interpretation Comments AMYLASE (BEAKER) (test code = 349) 55 U/L 25-125 Leather Belt Shaper ID - MARCELLE [id number] 13:07:00 Test Item Value Reference Range Interpretation Comments LIPASE (BEAKER) (test code = 749) 14 U/L 8-78 Leather Belt Shaper ID [place] MARCELLE FLACTIC ACID, [id number] 13:01:00 Test Item Value Reference Range Interpretation Comments LACTATE BLOOD VENOUS 1.0 mmol/L 0.5-2.2 Specime n slightly (2) (BEAKER) (test hemolyzed code = 1898) Leather Belt Shaper ID [place] MARCELLE FCBC W/PLT COUNT & AUTO [id number] 12:40:00 Test Item Value Reference Range Interpretation Comments WHITE BLOOD CELL COUNT (BEAKER) 2.4 K/ L 3.5-10.5 L (test code = 775) RED BLOOD CELL COUNT (BEAKER) 2.96 M/ L 4.63-6.08 L (test code = 761) HEMOGLOBIN (BEAKER) (test code = 9.0 GM/DL 13.7-17.5 L 410) HEMATOCRIT (BEAKER) (test code = 28.7 % 40.1-51.0 L 411) MEAN CORPUSCULAR VOLUME (BEAKER) 97.0 fL 79.0-92.2 H (test code = 753) MEAN CORPUSCULAR HEMOGLOBIN 30.4 pg 25.7-32.2 (BEAKER) (test code = 751) MEAN CORPUSCULAR HEMOGLOBIN CONC 31.4 GM/DL 32.3-36.5 L (BEAKER) (test code = 752) RED CELL DISTRIBUTION WIDTH 17.3 % 11.6-14.4 H (BEAKER) (test code = 412) PLATELET COUNT (BEAKER) (test code 58 K/CU MM 150-450 L = 756) MEAN PLATELET VOLUME (BEAKER) 10.9 fL 9.4-12.4 (test code = 754) NUCLEATED RED BLOOD CELLS (BEAKER) 0 /100 WBC 0-0 (test code = 413) NEUTROPHILS RELATIVE PERCENT 66 % (BEAKER) (test code = 429) LYMPHOCYTES RELATIVE PERCENT 21 % (BEAKER) (test code = 430) MONOCYTES RELATIVE PERCENT 8 % (BEAKER) (test code = 431) EOSINOPHILS RELATIVE PERCENT 3 % (BEAKER) (test code = 432) BASOPHILS RELATIVE PERCENT 1 % (BEAKER) (test code = 437) NEUTROPHILS ABSOLUTE COUNT 1.62 K/ L 1.78-5.38 L (BEAKER) (test code = 670) LYMPHOCYTES ABSOLUTE COUNT 0.50 K/ L 1.32-3.57 L (BEAKER) (test code = 414) MONOCYTES ABSOLUTE COUNT (BEAKER) 0.20 K/ L 0.30-0.82 L (test code = 415) EOSINOPHILS ABSOLUTE COUNT 0.08 K/ L 0.04-0.54 (BEAKER) (test code = 416) BASOPHILS ABSOLUTE COUNT (BEAKER) 0.03 K/ L 0.01-0.08 (test code = 417) IMMATURE GRANULOCYTES-RELATIVE 0 % 0-1 PERCENT (BEAKER) (test code = 2801) BLOOD GAS, [id number] 12:40:00 Test Item Value Reference Range Interpretation Comments PH VENOUS (BEAKER) (test code = 7.37 7.32-7.42 701) PCO2 VENOUS (BEAKER) (test code = 43 mmHg 41-51 755) PO2 VENOUS (BEAKER) (test code = 21 mmHg 25-40 L 702) O2 SATURATION VENOUS (BEAKER) 33.0 % 40.0-70.0 L (test code = 703) HCO3 VENOUS (BEAKER) (test code = 24 mmol/L 70) BASE EXCESS VENOUS (BEAKER) (test -1.0 mmol/L -2.0-3.0 code = 704) PATIENT TEMPERATURE (BEAKER) 37.0 C (test code = 1818) FIO2 (BEAKER) (test code = 1819) 21.0 % [id number] 12:29:00 Test Item Value Reference Range Interpretation Comments PROTIME (BEAKER) (test code = 16.3 seconds 11.9-14.2 H 759) INR (BEAKER) (test code = 370) 1.4 <=5.9 PARTIAL THROMBOPLASTIN TIME 32.7 seconds 22.5-36.0 (BEAKER) (test code = 760) Effective 11/26/2018: PT Reference Range ChangeNew: 11.9-14.2 Previous: 11.7- 14.7RECOMMENDED COUMADIN/WARFARIN INR THERAPY RANGESSTANDARD DOSE: 2.0-3.0 Includes: PROPHYLAXIS for venous thrombosis, systemic embolization; TREATMENT for venous thrombosis and/or pulmonary embolus.HIGH RISK: Target INR is2.5-3.5 for patients wiht mechanical heart valves.U/S, [id number] 11:38:00 Referring: Dr. Yary Sears ascitic fluid for cell count and differential If Cr > 1.5, do not remove more than 3.5L of ascitic fluid. If > 3L removed, please administer 200 mL of albumin 25%(50 grams) IV x 1Labs to be ordered:->Other (please add comment)Reason for Exam:->ascitesFINAL REPORT Ultrasound guided paracentesis. Clinical History: Ascites. Sedation: None. Tinsmith Apprentice: Lynn Chávez PA-C Assistant Finance Manager: None. Estimated Blood Loss: < 1 cc. Specimen: 3300 cc of clear yellow fluid, samples sent to laboratory. Technique: Informed consent was obtained. The risks of pain, bleeding, infection, bowel perforation, injury to adjacent structures, and adverse medication reactions were discussed with the patient. After informed consent was obtained, the patient's abdomen was scanned. The RLQ of the abdomen was selected for paracentesis. After the largest fluid pocket area was marked, and the anterior abdominal wall was evaluated with color Doppler to exclude presence of blood vessels traversing the area, the skin was preppedand draped in the usual sterile manner. After local anesthesia was achieved with 2% lidocaine, a 5 Chinese one-step catheter was advanced into the peritoneal cavity under ultrasound guidance. After completion of drainage, the catheter was removed. There was no evidence of complication. Impression:Successful ultrasound guided paracentesis. Signed: Steven Kimbrough MDReport Verified Date/Time: 07/13/201911:38:58 Reading Location: [address] Ultrasound Reading Room BLOOD [id number] 13:44:00 Test Item Value Reference Range Interpretation Comments CULTURE (BEAKER) (test No growth in 5 days code = 1095) BLOOD [id number] 13:44:00 Test Item Value Reference Range Interpretation Comments CULTURE (BEAKER) (test No growth in 5 days code = 1095) BODY FLUID CULTURE + GRAM [id number] 10:08:00 Test Item Value Reference Range Interpretation Comments CULTURE (BEAKER) (test code No growth = 1095) GRAM STAIN RESULT (BEAKER) <1+ WBCs (test code = 1123) GRAM STAIN RESULT (BEAKER) No organisms seen (test code = 76428) [id number] 15:38:00 Test Item Value Reference Range Interpretation Comments POC-CREATININE 1.5 mg/dL 0.6-1.[address] [facility] 67[address] (BEAKER) (test [place] code = 1859) [address] POC-EGFR (BEAKER) 48 mL/min/1.73M2 (test code = 1860) Glucose Peritoneal [id number] 16:28:00 Test Item Value Reference Range Interpretation Comments Glucose, 130 mg/dL Reference Rang e Peritoneal Fluid approximate s that (test code = found in serum. 2347-3) LATRELL (test code = Performing Lab LATRELL) EZ [facility] [address] [place] [address] Chun Dunne MD, PhD, JEAN [facility] CenterLactate Dehydrogenase (LD), Peritoneal Fluid 2019-07-09 16:23:00 Test Item Value Reference Range Interpretation Comments LACTATE DEHYDROGENASE 32 U/L <63 (LD), PERITONEAL FLUID (test code = 26026-4) LATRELL (test code = LATRELL) Performing Lab EZ [facility] [address] [place] [address] Chun Dunne MD, PhD, JEAN [facility] CenterTACROLIMUS [id number] 10:37:00 Test Item Value Reference Range Interpretation Comments TACROLIMUS BLOOD (BEAKER) (test 4.6 ng/mL 10.0-20.0 L code = 657) [id number] 07:42:00 Test Item Value Reference Range Interpretation Comments MAGNESIUM (BEAKER) (test code = 1.6 mg/dL 1.6-2.6 627) BASIC METABOLIC [id number] 07:42:00 Test Item Value Reference Range Interpretation Comments SODIUM (BEAKER) 136 meq/L 136-145 (test code = 381) POTASSIUM (BEAKER) 4.5 meq/L 3.5-5.1 (test code = 379) CHLORIDE (BEAKER) 115 meq/L 98-107 H (test code = 382) CO2 (BEAKER) (test 13 meq/L 22-29 L code = 355) BLOOD UREA NITROGEN 27 mg/dL 7-21 H (BEAKER) (test code = 354) CREATININE (BEAKER) 1.44 mg/dL 0.57-1.25 H (test code = 358) GLUCOSE RANDOM 152 mg/dL 70-105 H (BEAKER) (test code = 652) CALCIUM (BEAKER) 7.9 mg/dL 8.4-10.2 L (test code = 697) EGFR (BEAKER) (test 50 mL/min/1.73 ESTIMA ROBERTA GFR IS code = 1092) sq m NOT ACCURATE CREATININE CLEARANCE IN PREDICTING GLOMERULAR FILTRATION RATE . ESTIMATED GFR I S NOT APPLICABLE FOR DIALYSIS PATIEN TS. Protein, Total, Peritoneal [id number] 07:36:00 Test Item Value Reference Range Interpretation Comments PROTEIN, TOTAL, PERITONEAL FLUID (test 0.9 code = 2883-7) [facility] W/PLT COUNT & AUTO [id number] 07:19:00 Test Item Value Reference Range Interpretation Comments WHITE BLOOD CELL COUNT (BEAKER) 5.1 K/ L 3.5-10.5 (test code = 775) RED BLOOD CELL COUNT (BEAKER) 2.99 M/ L 4.63-6.08 L (test code = 761) HEMOGLOBIN (BEAKER) (test code = 8.8 GM/DL 13.7-17.5 L 410) HEMATOCRIT (BEAKER) (test code = 27.3 % 40.1-51.0 L 411) MEAN CORPUSCULAR VOLUME (BEAKER) 91.3 fL 79.0-92.2 (test code = 753) MEAN CORPUSCULAR HEMOGLOBIN 29.4 pg 25.7-32.2 (BEAKER) (test code = 751) MEAN CORPUSCULAR HEMOGLOBIN CONC 32.2 GM/DL 32.3-36.5 L (BEAKER) (test code = 752) RED CELL DISTRIBUTION WIDTH 17.4 % 11.6-14.4 H (BEAKER) (test code = 412) PLATELET COUNT (BEAKER) (test code 86 K/CU MM 150-450 L = 756) MEAN PLATELET VOLUME (BEAKER) 10.9 fL 9.4-12.4 (test code = 754) NUCLEATED RED BLOOD CELLS (BEAKER) 0 /100 WBC 0-0 (test code = 413) NEUTROPHILS RELATIVE PERCENT 90 % (BEAKER) (test code = 429) LYMPHOCYTES RELATIVE PERCENT 5 % (BEAKER) (test code = 430) MONOCYTES RELATIVE PERCENT 4 % (BEAKER) (test code = 431) EOSINOPHILS RELATIVE PERCENT 0 % (BEAKER) (test code = 432) BASOPHILS RELATIVE PERCENT 0 % (BEAKER) (test code = 437) NEUTROPHILS ABSOLUTE COUNT 4.61 K/ L 1.78-5.38 (BEAKER) (test code = 670) LYMPHOCYTES ABSOLUTE COUNT 0.27 K/ L 1.32-3.57 L (BEAKER) (test code = 414) MONOCYTES ABSOLUTE COUNT (BEAKER) 0.21 K/ L 0.30-0.82 L (test code = 415) EOSINOPHILS ABSOLUTE COUNT 0.01 K/ L 0.04-0.54 L (BEAKER) (test code = 416) BASOPHILS ABSOLUTE COUNT (BEAKER) 0.01 K/ L 0.01-0.08 (test code = 417) IMMATURE GRANULOCYTES-RELATIVE 0 % 0-1 PERCENT (BEAKER) (test code = 2801) BODY FLUID CELL COUNT WITH [id number] 14:42:00 Test Item Value Reference Range Interpretation Comments APPEARANCE FLUID (BEAKER) Slightly Hazy Clear A (test code = 510) COLOR FLUID (BEAKER) (test Straw Colorless, Straw code = 511) RBC FLUID (BEAKER) (test code 1275 /cu mm <=1 H = 513) ADJUSTED WBC FLUID (BEAKER) 313 /cu mm <=5 H (test code = 1691) LINING CELLS (BEAKER) (test 16 /cu mm <=1 H code = 1590) NEUTROPHILS FLUID (BEAKER) 69 % (test code = 1656) LYMPHS FLUID (BEAKER) (test 14 % code = 488) MONO/MACROPHAGE FLUID (BEAKER) 16 % (test code = 489) EOSINOPHILS FLUID (BEAKER) 0 % (test code = 491) BASO FLUID (BEAKER) (test code 0 % = 492) CONTAINER BODY FLUID (BEAKER) EDTA Tube (test code = 2873) U/S, [id number] 13:48:00Referring: Dr. Yary Olivas to be ordered:->Body Fluid Culture (w/Gram Stain, C\\T\\S)fluid cell countLabs to be ordered:->Glucose+LDH+ProteinLabs to be ordered:->Other (please add comment)Reason for exam:->abdominal distention and ascites.FINAL REPORT Ultrasound guided paracentesis. Clinical History: Ascites. Sedation: None. Tinsmith Apprentice: Lynn Chávez PA-C Assistant Finance Manager: None. Estimated Blood Loss: < 1 cc. Specimen: 2800 cc of clear yellow fluid, samples sent to laboratory. Technique: Informed consent was obtained. The risks of pain, bleeding, infection, bowel perforation, injury to adjacent structures, and adverse medication reactions were discussed with the patient. After informed consent was obtained, the patient's abdomen was scanned. The RLQ of the abdomen was selected for paracentesis. After the largest fluid pocket area was marked, and the anterior abdominal wall was evaluated with color Doppler to exclude presence of blood vessels traversing the area, the skin was preppedand draped in the usual sterile manner. After local anesthesia was achieved with 2% lidocaine, a 5 Chinese one-step catheter was advanced into the peritoneal cavity under ultrasound guidance. After completion of drainage, the catheter was removed. There was no evidence of complication. Impression:Successful ultrasound guided paracentesis. Signed: Edmund Barraza MDReport Verified Date/Time: 07/07/2019 13:48:10 Reading Location: [facility] [id number] Ultrasound Reading Room TACROLIMUS [id number] 10:03:00 Test Item Value Reference Range Interpretation Comments TACROLIMUS BLOOD (BEAKER) (test 3.5 ng/mL 10.0-20.0 L code = 657) [id number] 07:00:00 Test Item Value Reference Range Interpretation Comments PHOSPHORUS (BEAKER) (test code = 2.9 mg/dL 2.3-4.7 604) [id number] 07:00:00 Test Item Value Reference Range Interpretation Comments MAGNESIUM (BEAKER) (test code = 1.4 mg/dL 1.6-2.6 L 627) HEPATIC FUNCTION [id number] 07:00:00 Test Item Value Reference Range Interpretation Comments TOTAL PROTEIN (BEAKER) (test code = 4.0 gm/dL 6.0-8.3 L 770) ALBUMIN (BEAKER) (test code = 1145) 2.6 g/dL 3.5-5.0 L BILIRUBIN TOTAL (BEAKER) (test code 0.5 mg/dL 0.2-1.2 = 377) BILIRUBIN DIRECT (BEAKER) (test 0.4 mg/dL 0.1-0.5 code = 706) ALKALINE PHOSPHATASE (BEAKER) (test 265 U/L 40-150 H code = 346) AST (SGOT) (BEAKER) (test code = 21 U/L 5-34 353) ALT (SGPT) (BEAKER) (test code = 24 U/L 6-55 347) CBC W/PLT COUNT & AUTO [id number] 07:00:00 Test Item Value Reference Range Interpretation Comments WHITE BLOOD CELL COUNT (BEAKER) 3.0 K/ L 3.5-10.5 L (test code = 775) RED BLOOD CELL COUNT (BEAKER) 2.25 M/ L 4.63-6.08 L (test code = 761) HEMOGLOBIN (BEAKER) (test code = 6.8 GM/DL 13.7-17.5 L 410) HEMATOCRIT (BEAKER) (test code = 21.0 % 40.1-51.0 L 411) MEAN CORPUSCULAR VOLUME (BEAKER) 93.3 fL 79.0-92.2 H (test code = 753) MEAN CORPUSCULAR HEMOGLOBIN 30.2 pg 25.7-32.2 (BEAKER) (test code = 751) MEAN CORPUSCULAR HEMOGLOBIN CONC 32.4 GM/DL 32.3-36.5 (BEAKER) (test code = 752) RED CELL DISTRIBUTION WIDTH 17.8 % 11.6-14.4 H (BEAKER) (test code = 412) PLATELET COUNT (BEAKER) (test code 66 K/CU MM 150-450 L = 756) MEAN PLATELET VOLUME (BEAKER) 11.9 fL 9.4-12.4 (test code = 754) NUCLEATED RED BLOOD CELLS (BEAKER) 0 /100 WBC 0-0 (test code = 413) NEUTROPHILS RELATIVE PERCENT 78 % (BEAKER) (test code = 429) LYMPHOCYTES RELATIVE PERCENT 12 % (BEAKER) (test code = 430) MONOCYTES RELATIVE PERCENT 6 % (BEAKER) (test code = 431) EOSINOPHILS RELATIVE PERCENT 4 % (BEAKER) (test code = 432) BASOPHILS RELATIVE PERCENT 0 % (BEAKER) (test code = 437) NEUTROPHILS ABSOLUTE COUNT 2.36 K/ L 1.78-5.38 (BEAKER) (test code = 670) LYMPHOCYTES ABSOLUTE COUNT 0.36 K/ L 1.32-3.57 L (BEAKER) (test code = 414) MONOCYTES ABSOLUTE COUNT (BEAKER) 0.19 K/ L 0.30-0.82 L (test code = 415) EOSINOPHILS ABSOLUTE COUNT 0.12 K/ L 0.04-0.54 (BEAKER) (test code = 416) BASOPHILS ABSOLUTE COUNT (BEAKER) 0.00 K/ L 0.01-0.08 L (test code = 417) IMMATURE GRANULOCYTES-RELATIVE 0 % 0-1 PERCENT (BEAKER) (test code = 2801) BASIC METABOLIC [id number] 07:00:00 Test Item Value Reference Range Interpretation Comments SODIUM (BEAKER) 138 meq/L 136-145 (test code = 381) POTASSIUM (BEAKER) 3.7 meq/L 3.5-5.1 (test code = 379) CHLORIDE (BEAKER) 115 meq/L 98-107 H (test code = 382) CO2 (BEAKER) (test 15 meq/L 22-29 L code = 355) BLOOD UREA NITROGEN 27 mg/dL 7-21 H (BEAKER) (test code = 354) CREATININE (BEAKER) 1.45 mg/dL 0.57-1.25 H (test code = 358) GLUCOSE RANDOM 87 mg/dL 70-105 (BEAKER) (test code = 652) CALCIUM (BEAKER) 7.4 mg/dL 8.4-10.2 L (test code = 697) EGFR (BEAKER) (test 49 mL/min/1.73 ESTIMA ROBERTA GFR IS code = 1092) sq m NOT ACCURATE CREATININE CLEARANCE IN PREDICTING GLOMERULAR FILTRATION RATE . ESTIMATED GFR I S NOT APPLICABLE FOR DIALYSIS PATIEN TS. Respiratory Panel [id number] 17:34:00 Test Item Value Reference Range Interpretation Comments Human Metapneumovirus Not detected Not detected, (test code = 52554-6) Equivocal Rhinovirus (test code = Not detected Not detected, 88134-0) Equivocal INFLUENZA A (NO Not detected Not detected, SUBTYPE) (test code = Equivocal 10664-7) Influenza A subtype H1 (test code = 38830-9) Influenza A Subtype H3 (test code = 71532-2) Influenza A Subtype H1-2009 (test code = 23823-0) Influenza B (test code Not detected Not detected, = 21134-6) Equivocal Respiratory Syncytial Not detected Not detected, Virus (test code = Equivocal 00029-1) Parainfluenza Virus 1 Not detected Not detected, (test code = 23764-4) Equivocal Parainfluenza Virus 2 Not detected Not detected, (test code = 67242-0) Equivocal Parainfluenza virus 3 Not detected Not detected, (test code = 27791-4) Equivocal Parainfluenza Virus 4 Not detected Not detected, (test code = 12628-2) Equivocal Adenovirus (test code = Not detected Not detected, 92101-4) Equivocal Coronavirus 229E (test Not detected Not detected, code = 16492-7) Equivocal Coronavirus HKU1 (test Not detected Not detected, code = 47904-1) Equivocal Coronavirus NL63 (test Not detected Not detected, code = 17259-5) Equivocal Coronavirus OC43 (test Not detected Not detected, code = 08438-8) Equivocal Bordetella Pertussis Not detected Not detected, (test code = 78233-6) Equivocal Chlamydophila Not detected Not detected, Pneumoniae (test code = Equivocal 21611-1) Mycoplasma Pneumoniae Not detected Not detected, (test code = 70898-0) Equivocal LATRELL (test code = LATRELL) Other viruses and bacteria not targeted by [...] [facility] Molecular [facility] Laboratory using the [employer] Respiratory Panel. It is FDA cleared and has been verified and approved by the [facility] Molecular Diagnostics Laboratory for clinical use on nasopharyngeal swab specimens. The performance of the FilmArray RP has not been established in individuals who received influenza vaccine. Recent administration of a nasal influenza vaccine may cause false positive results for Influenza A and/orInfluenza B. [facility] [id number] 17:34:00 Test Item Value Reference Range Interpretation Comments HUMAN METAPNEUMOVIRUS Not detected Not detected, (BEAKER) (test code = 2683) Equivocal RHINOVIRUS (BEAKER) (test Not detected Not detected, code = 2684) Equivocal INFLUENZA A (BEAKER) (test Not detected Not detected, code = 2685) Equivocal INFLUENZA A (NO SUBTYPE) (test code = 3606) INFLUENZA A SUBTYPE H1 (BEAKER) (test code = 2686) INFLUENZA A SUBTYPE H3 (BEAKER) (test code = 2687) INFLUENZA A SUBTYPE H1-2009 (BEAKER) (test code = 3198) INFLUENZA B (BEAKER) (test Not detected Not detected, code = 2688) Equivocal RESPIRATORY SYNCYTIAL VIRUS Not detected Not detected, (BEAKER) (test code = 3199) Equivocal PARAINFLUENZA VIRUS 1 Not detected Not detected, (BEAKER) (test code = 2691) Equivocal PARAINFLUENZA VIRUS 2 Not detected Not detected, (BEAKER) (test code = 2692) Equivocal PARAINFLUENZA VIRUS 3 Not detected Not detected, (BEAKER) (test code = 2693) Equivocal PARAINFLUENZA VIRUS 4 Not detected Not detected, (BEAKER) (test code = 3200) Equivocal ADENOVIRUS (BEAKER) (test Not detected Not detected, code = 2694) Equivocal CORONAVIRUS 229E (BEAKER) Not detected Not detected, (test code = 3201) Equivocal CORONAVIRUS HKU1 (BEAKER) Not detected Not detected, (test code = 3202) Equivocal CORONAVIRUS NL63 (BEAKER) Not detected Not detected, (test code = 3203) Equivocal CORONAVIRUS OC43 (BEAKER) Not detected Not detected, (test code = 3204) Equivocal BORDETELLA PERTUSSIS Not detected Not detected, (BEAKER) (test code = 3205) Equivocal CHLAMYDOPHILA PNEUMONIAE Not detected Not detected, (BEAKER) (test code = 3206) Equivocal MYCOPLASMA PNEUMONIAE Not detected Not detected, (BEAKER) (test code = 3207) Equivocal Other viruses and bacteria not targeted [...] [facility] Molecular Diagnostics Laboratory using the [employer] FilmArray Respiratory Panel. It is FDA cleared and has been verified and approved by the [facility] Molecular Diagnostics Laboratory for clinical use on nasopharyngeal swab specimens.The performance of the FilmArrayRP has not been established in individuals who received influenza vaccine. Recent administration ofa nasal influenza vaccine may cause false positive results for Influenza A and/orInfluenza B.TACROLIMUS [id number] 09:50:00 Test Item Value Reference Range Interpretation Comments TACROLIMUS BLOOD (BEAKER) (test 3.6 ng/mL 10.0-20.0 L code = 657) BASIC METABOLIC [id number] 07:47:00 Test Item Value Reference Range Interpretation Comments SODIUM (BEAKER) 136 meq/L 136-145 (test code = 381) POTASSIUM (BEAKER) 4.0 meq/L 3.5-5.1 (test code = 379) CHLORIDE (BEAKER) 115 meq/L 98-107 H (test code = 382) CO2 (BEAKER) (test 15 meq/L 22-29 L code = 355) BLOOD UREA NITROGEN 25 mg/dL 7-21 H (BEAKER) (test code = 354) CREATININE (BEAKER) 1.38 mg/dL 0.57-1.25 H (test code = 358) GLUCOSE RANDOM 80 mg/dL 70-105 (BEAKER) (test code = 652) CALCIUM (BEAKER) 7.2 mg/dL 8.4-10.2 L (test code = 697) EGFR (BEAKER) (test 52 mL/min/1.73 ESTIMA ROBERTA GFR IS code = 1092) sq m NOT ACCURATE CREATININE CLEARANCE IN PREDICTING GLOMERULAR FILTRATION RATE . ESTIMATED GFR I S NOT APPLICABLE FOR DIALYSIS PATIEN TS. [id number] 07:39:00 Test Item Value Reference Range Interpretation Comments PHOSPHORUS (BEAKER) (test code = 2.6 mg/dL 2.3-4.7 604) [id number] 07:39:00 Test Item Value Reference Range Interpretation Comments MAGNESIUM (BEAKER) (test code = 1.4 mg/dL 1.6-2.6 L 627) HEPATIC FUNCTION [id number] 07:39:00 Test Item Value Reference Range Interpretation Comments TOTAL PROTEIN (BEAKER) (test code = 4.1 gm/dL 6.0-8.3 L 770) ALBUMIN (BEAKER) (test code = 1145) 2.6 g/dL 3.5-5.0 L BILIRUBIN TOTAL (BEAKER) (test code 0.8 mg/dL 0.2-1.2 = 377) BILIRUBIN DIRECT (BEAKER) (test 0.4 mg/dL 0.1-0.5 code = 706) ALKALINE PHOSPHATASE (BEAKER) (test 280 U/L 40-150 H code = 346) AST (SGOT) (BEAKER) (test code = 28 U/L 5-34 353) ALT (SGPT) (BEAKER) (test code = 26 U/L 6-55 347) CBC W/PLT COUNT & AUTO [id number] 06:46:00 Test Item Value Reference Range Interpretation Comments WHITE BLOOD CELL COUNT (BEAKER) 5.4 K/ L 3.5-10.5 (test code = 775) RED BLOOD CELL COUNT (BEAKER) 2.44 M/ L 4.63-6.08 L (test code = 761) HEMOGLOBIN (BEAKER) (test code = 7.4 GM/DL 13.7-17.5 L 410) HEMATOCRIT (BEAKER) (test code = 22.7 % 40.1-51.0 L 411) MEAN CORPUSCULAR VOLUME (BEAKER) 93.0 fL 79.0-92.2 H (test code = 753) MEAN CORPUSCULAR HEMOGLOBIN 30.3 pg 25.7-32.2 (BEAKER) (test code = 751) MEAN CORPUSCULAR HEMOGLOBIN CONC 32.6 GM/DL 32.3-36.5 (BEAKER) (test code = 752) RED CELL DISTRIBUTION WIDTH 17.5 % 11.6-14.4 H (BEAKER) (test code = 412) PLATELET COUNT (BEAKER) (test code 63 K/CU MM 150-450 L = 756) MEAN PLATELET VOLUME (BEAKER) 10.3 fL 9.4-12.4 (test code = 754) NUCLEATED RED BLOOD CELLS (BEAKER) 0 /100 WBC 0-0 (test code = 413) NEUTROPHILS RELATIVE PERCENT 86 % (BEAKER) (test code = 429) LYMPHOCYTES RELATIVE PERCENT 6 % (BEAKER) (test code = 430) MONOCYTES RELATIVE PERCENT 5 % (BEAKER) (test code = 431) EOSINOPHILS RELATIVE PERCENT 2 % (BEAKER) (test code = 432) BASOPHILS RELATIVE PERCENT 0 % (BEAKER) (test code = 437) NEUTROPHILS ABSOLUTE COUNT 4.63 K/ L 1.78-5.38 (BEAKER) (test code = 670) LYMPHOCYTES ABSOLUTE COUNT 0.34 K/ L 1.32-3.57 L (BEAKER) (test code = 414) MONOCYTES ABSOLUTE COUNT (BEAKER) 0.25 K/ L 0.30-0.82 L (test code = 415) EOSINOPHILS ABSOLUTE COUNT 0.12 K/ L 0.04-0.54 (BEAKER) (test code = 416) BASOPHILS ABSOLUTE COUNT (BEAKER) 0.02 K/ L 0.01-0.08 (test code = 417) IMMATURE GRANULOCYTES-RELATIVE 0 % 0-1 PERCENT (BEAKER) (test code = 2801) PROTHROMBIN [id number] 02:37:00 Test Item Value Reference Range Interpretation Comments PROTIME (BEAKER) (test code = 19.4 seconds 11.9-14.2 H 759) INR (BEAKER) (test code = 370) 1.7 <=5.9 Effective 11/26/2018: PT Reference Range ChangeNew: 11.9-14.2 Previous: 11.7- 14.7RECOMMENDED COUMADIN/WARFARIN INR THERAPY RANGESSTANDARD DOSE: 2.0-3.0 Includes: PROPHYLAXIS for venous thrombosis, systemic embolization; TREATMENT for venous thrombosis and/or pulmonary embolus.HIGH RISK: Target INR is2.5-3.5 for patients wiht mechanical heart valves.[id number] 02:37:00 Test Item Value Reference Range Interpretation Comments PROTIME (BEAKER) (test code = 19.4 seconds 11.9-14.2 H 759) INR (BEAKER) (test code = 370) 1.7 <=5.9 PARTIAL THROMBOPLASTIN TIME 39.2 seconds 22.5-36.0 H (BEAKER) (test code = 760) Effective 11/26/2018: PT Reference Range ChangeNew: 11.9-14.2 Previous: 11.7- 14.7RECOMMENDED COUMADIN/WARFARIN INR THERAPY RANGESSTANDARD DOSE: 2.0-3.0 Includes: PROPHYLAXIS for venous thrombosis, systemic embolization; TREATMENT for venous thrombosis and/or pulmonary embolus.HIGH RISK: Target INR is2.5-3.5 for patients wiht mechanical heart valves.BASIC METABOLIC [id number] 02:23:00 Test Item Value Reference Range Interpretation Comments SODIUM (BEAKER) 137 meq/L 136-145 (test code = 381) POTASSIUM (BEAKER) 3.9 meq/L 3.5-5.1 (test code = 379) CHLORIDE (BEAKER) 114 meq/L 98-107 H (test code = 382) CO2 (BEAKER) (test 16 meq/L 22-29 L code = 355) BLOOD UREA NITROGEN 24 mg/dL 7-21 H (BEAKER) (test code = 354) CREATININE (BEAKER) 1.47 mg/dL 0.57-1.25 H (test code = 358) GLUCOSE RANDOM 111 mg/dL 70-105 H (BEAKER) (test code = 652) CALCIUM (BEAKER) 7.7 mg/dL 8.4-10.2 L (test code = 697) EGFR (BEAKER) (test 49 mL/min/1.73 ESTIMA ROBERTA GFR IS code = 1092) sq m NOT ACCURATE CREATININE CLEARANCE IN PREDICTING GLOMERULAR FILTRATION RATE . ESTIMATED GFR I S NOT APPLICABLE FOR DIALYSIS PATIEN TS. [id number] 02:22:00 Test Item Value Reference Range Interpretation Comments PHOSPHORUS (BEAKER) (test code = 2.1 mg/dL 2.3-4.7 L 604) [id number] 02:22:00 Test Item Value Reference Range Interpretation Comments MAGNESIUM (BEAKER) (test code = 1.4 mg/dL 1.6-2.6 L 627) HEPATIC FUNCTION [id number] 02:22:00 Test Item Value Reference Range Interpretation Comments TOTAL PROTEIN (BEAKER) (test code = 4.5 gm/dL 6.0-8.3 L 770) ALBUMIN (BEAKER) (test code = 1145) 3.0 g/dL 3.5-5.0 L BILIRUBIN TOTAL (BEAKER) (test code 0.9 mg/dL 0.2-1.2 = 377) BILIRUBIN DIRECT (BEAKER) (test 0.6 mg/dL 0.1-0.5 H code = 706) ALKALINE PHOSPHATASE (BEAKER) (test 325 U/L 40-150 H code = 346) AST (SGOT) (BEAKER) (test code = 31 U/L 5-34 353) ALT (SGPT) (BEAKER) (test code = 29 U/L 6-55 347) RAD, CHEST, 2 [id number] 02:14:00Referring: Dr. Yary Fernando for exam:->pneumoniaFINAL REPORT CLINICAL HISTORY: Pneumonia Two views of the chest are submitted. COMPARISON: 05/19/2019 The cardiac silhouette is within normal limits for size. Sternotomy wires are in place. Diffuse interstitial coarsening and vague airspace opacities in the left greater than right lungs, a nonspecific appearance which could reflect asymmetrical pulmonary edema or multifocal pneumonitis. Blunting of the costophrenic sulci suggests small effusions or pleural thickening. There is no pneumothorax or acute bony abnormality. Signed: Karissa Romero MDReport Verified Date/Time: 07/06/2019 02:14:45 CBC W/PLT COUNT & AUTO [id number] 01:50:00 Test Item Value Reference Range Interpretation Comments WHITE BLOOD CELL COUNT (BEAKER) 9.4 K/ L 3.5-10.5 (test code = 775) RED BLOOD CELL COUNT (BEAKER) 2.80 M/ L 4.63-6.08 L (test code = 761) HEMOGLOBIN (BEAKER) (test code = 8.4 GM/DL 13.7-17.5 L 410) HEMATOCRIT (BEAKER) (test code = 25.8 % 40.1-51.0 L 411) MEAN CORPUSCULAR VOLUME (BEAKER) 92.1 fL 79.0-92.2 (test code = 753) MEAN CORPUSCULAR HEMOGLOBIN 30.0 pg 25.7-32.2 (BEAKER) (test code = 751) MEAN CORPUSCULAR HEMOGLOBIN CONC 32.6 GM/DL 32.3-36.5 (BEAKER) (test code = 752) RED CELL DISTRIBUTION WIDTH 17.4 % 11.6-14.4 H (BEAKER) (test code = 412) PLATELET COUNT (BEAKER) (test code 76 K/CU MM 150-450 L = 756) MEAN PLATELET VOLUME (BEAKER) 10.0 fL 9.4-12.4 (test code = 754) NUCLEATED RED BLOOD CELLS (BEAKER) 0 /100 WBC 0-0 (test code = 413) NEUTROPHILS RELATIVE PERCENT 91 % (BEAKER) (test code = 429) LYMPHOCYTES RELATIVE PERCENT 5 % (BEAKER) (test code = 430) MONOCYTES RELATIVE PERCENT 3 % (BEAKER) (test code = 431) EOSINOPHILS RELATIVE PERCENT 1 % (BEAKER) (test code = 432) BASOPHILS RELATIVE PERCENT 0 % (BEAKER) (test code = 437) NEUTROPHILS ABSOLUTE COUNT 8.52 K/ L 1.78-5.38 H (BEAKER) (test code = 670) LYMPHOCYTES ABSOLUTE COUNT 0.43 K/ L 1.32-3.57 L (BEAKER) (test code = 414) MONOCYTES ABSOLUTE COUNT (BEAKER) 0.32 K/ L 0.30-0.82 (test code = 415) EOSINOPHILS ABSOLUTE COUNT 0.05 K/ L 0.04-0.54 (BEAKER) (test code = 416) BASOPHILS ABSOLUTE COUNT (BEAKER) 0.02 K/ L 0.01-0.08 (test code = 417) IMMATURE GRANULOCYTES-RELATIVE 1 % 0-1 PERCENT (BEAKER) (test code = 2801) TACROLIMUS [id number] 13:42:00 Test Item Value Reference Range Interpretation Comments TACROLIMUS BLOOD (BEAKER) (test 5.3 ng/mL 10.0-20.0 L code = 657) [id number] 12:03:00 Test Item Value Reference Range Interpretation Comments PHOSPHORUS (BEAKER) (test code = 2.9 mg/dL 2.3-4.7 604) [id number] 12:03:00 Test Item Value Reference Range Interpretation Comments MAGNESIUM (BEAKER) (test code = 1.7 mg/dL 1.6-2.6 627) COMPREHENSIVE METABOLIC [id number] 12:03:00 Test Item Value Reference Range Interpretation Comments TOTAL PROTEIN 5.4 gm/dL 6.0-8.3 L (BEAKER) (test code = 770) ALBUMIN (BEAKER) 3.6 g/dL 3.5-5.0 (test code = 1145) ALKALINE PHOSPHATASE 436 U/L 40-150 H (BEAKER) (test code = 346) BILIRUBIN TOTAL 0.9 mg/dL 0.2-1.2 (BEAKER) (test code = 377) SODIUM (BEAKER) (test 140 meq/L 136-145 code = 381) POTASSIUM (BEAKER) 4.3 meq/L 3.5-5.1 (test code = 379) CHLORIDE (BEAKER) 113 meq/L 98-107 H (test code = 382) CO2 (BEAKER) (test 19 meq/L 22-29 L code = 355) BLOOD UREA NITROGEN 25 mg/dL 7-21 H (BEAKER) (test code = 354) CREATININE (BEAKER) 1.63 mg/dL 0.57-1.25 H (test code = 358) GLUCOSE RANDOM 92 mg/dL 70-105 (BEAKER) (test code = 652) CALCIUM (BEAKER) 8.4 mg/dL 8.4-10.2 (test code = 697) AST (SGOT) (BEAKER) 41 U/L 5-34 H (test code = 353) ALT (SGPT) (BEAKER) 34 U/L 6-55 (test code = 347) EGFR (BEAKER) (test 43 mL/min/1.73 ESTIMA ROBERTA GFR IS code = 1092) sq m NOT ACCURATE CREATININE CLEARANCE IN PREDICTING GLOMERULAR FILTRATION RATE . ESTIMATED GFR I S NOT APPLICABLE FOR DIALYSIS PATIEN TS. LACTATE DEHYDROGENASE (LDH)2019-07-03 12:03:00 Test Item Value Reference Range Interpretation Comments LACTATE DEHYDROGENASE (BEAKER) (test 207 U/L 125-220 code = 635) CBC W/PLT COUNT & AUTO [id number] 11:41:00 Test Item Value Reference Range Interpretation Comments WHITE BLOOD CELL COUNT (BEAKER) 5.8 K/ L 3.5-10.5 (test code = 775) RED BLOOD CELL COUNT (BEAKER) 3.07 M/ L 4.63-6.08 L (test code = 761) HEMOGLOBIN (BEAKER) (test code = 9.3 GM/DL 13.7-17.5 L 410) HEMATOCRIT (BEAKER) (test code = 28.4 % 40.1-51.0 L 411) MEAN CORPUSCULAR VOLUME (BEAKER) 92.5 fL 79.0-92.2 H (test code = 753) MEAN CORPUSCULAR HEMOGLOBIN 30.3 pg 25.7-32.2 (BEAKER) (test code = 751) MEAN CORPUSCULAR HEMOGLOBIN CONC 32.7 GM/DL 32.3-36.5 (BEAKER) (test code = 752) RED CELL DISTRIBUTION WIDTH 17.5 % 11.6-14.4 H (BEAKER) (test code = 412) PLATELET COUNT (BEAKER) (test 114 K/CU MM 150-450 L code = 756) MEAN PLATELET VOLUME (BEAKER) 11.1 fL 9.4-12.4 (test code = 754) NUCLEATED RED BLOOD CELLS 0 /100 WBC 0-0 (BEAKER) (test code = 413) NEUTROPHILS RELATIVE PERCENT 76 % (BEAKER) (test code = 429) LYMPHOCYTES RELATIVE PERCENT 12 % (BEAKER) (test code = 430) MONOCYTES RELATIVE PERCENT 7 % (BEAKER) (test code = 431) EOSINOPHILS RELATIVE PERCENT 4 % (BEAKER) (test code = 432) BASOPHILS RELATIVE PERCENT 1 % (BEAKER) (test code = 437) NEUTROPHILS ABSOLUTE COUNT 4.41 K/ L 1.78-5.38 (BEAKER) (test code = 670) LYMPHOCYTES ABSOLUTE COUNT 0.70 K/ L 1.32-3.57 L (BEAKER) (test code = 414) MONOCYTES ABSOLUTE COUNT (BEAKER) 0.42 K/ L 0.30-0.82 (test code = 415) EOSINOPHILS ABSOLUTE COUNT 0.22 K/ L 0.04-0.54 (BEAKER) (test code = 416) BASOPHILS ABSOLUTE COUNT (BEAKER) 0.04 K/ L 0.01-0.08 (test code = 417) IMMATURE GRANULOCYTES-RELATIVE 0 % 0-1 PERCENT (BEAKER) (test code = 2801) U/S, [id number] 12:23:00Referring: Dr. Yary Fernando for exam:->ABDOMINAL PAINReason for exam:->ASCITESFINAL REPORT Procedure: Ultrasound-Guided Paracentesis: [...] noted. Impression: Uncomplicated ultrasound-guided paracentesis. Signed: Joey Liu MDReport Verified Date/Time: 06/27/2019 12:23:23 Reading Location: [address] Reading Room BASI METABOLIC [id number] 10:54:00 Test Item Value Reference Range Interpretation Comments SODIUM (BEAKER) 139 meq/L 136-145 (test code = 381) POTASSIUM (BEAKER) 4.0 meq/L 3.5-5.1 (test code = 379) CHLORIDE (BEAKER) 113 meq/L 98-107 H (test code = 382) CO2 (BEAKER) (test 17 meq/L 22-29 L code = 355) BLOOD UREA NITROGEN 22 mg/dL 7-21 H (BEAKER) (test code = 354) CREATININE (BEAKER) 1.32 mg/dL 0.57-1.25 H (test code = 358) GLUCOSE RANDOM 80 mg/dL 70-105 (BEAKER) (test code = 652) CALCIUM (BEAKER) 8.0 mg/dL 8.4-10.2 L (test code = 697) EGFR (BEAKER) (test 55 mL/min/1.73 ESTIMA ROBERTA GFR IS code = 1092) sq m NOT ACCURATE CREATININE CLEARANCE IN PREDICTING GLOMERULAR FILTRATION RATE . ESTIMATED GFR I S NOT APPLICABLE FOR DIALYSIS PATIEN TS. PROTHROMBIN [id number] 10:41:00 Test Item Value Reference Range Interpretation Comments PROTIME (BEAKER) (test code = 17.0 seconds 11.9-14.2 H 759) INR (BEAKER) (test code = 370) 1.4 <=5.9 Effective 11/26/2018: PT Reference Range ChangeNew: 11.9-14.2 Previous: 11.7- 14.7RECOMMENDED COUMADIN/WARFARIN INR THERAPY RANGESSTANDARD DOSE: 2.0-3.0 Includes: PROPHYLAXIS for venous thrombosis, systemic embolization; TREATMENT for venous thrombosis and/or pulmonary embolus.HIGH RISK: Target INR is2.5-3.5 for patients wiht mechanical heart valves.CBC W/PLT COUNT & AUTO [id number] 10:35:00 Test Item Value Reference Range Interpretation Comments WHITE BLOOD CELL COUNT (BEAKER) 4.8 K/ L 3.5-10.5 (test code = 775) RED BLOOD CELL COUNT (BEAKER) 3.01 M/ L 4.63-6.08 L (test code = 761) HEMOGLOBIN (BEAKER) (test code = 9.0 GM/DL 13.7-17.5 L 410) HEMATOCRIT (BEAKER) (test code = 27.9 % 40.1-51.0 L 411) MEAN CORPUSCULAR VOLUME (BEAKER) 92.7 fL 79.0-92.2 H (test code = 753) MEAN CORPUSCULAR HEMOGLOBIN 29.9 pg 25.7-32.2 (BEAKER) (test code = 751) MEAN CORPUSCULAR HEMOGLOBIN CONC 32.3 GM/DL 32.3-36.5 (BEAKER) (test code = 752) RED CELL DISTRIBUTION WIDTH 17.4 % 11.6-14.4 H (BEAKER) (test code = 412) PLATELET COUNT (BEAKER) (test 105 K/CU MM 150-450 L code = 756) MEAN PLATELET VOLUME (BEAKER) 11.4 fL 9.4-12.4 (test code = 754) NUCLEATED RED BLOOD CELLS 0 /100 WBC 0-0 (BEAKER) (test code = 413) NEUTROPHILS RELATIVE PERCENT 66 % (BEAKER) (test code = 429) LYMPHOCYTES RELATIVE PERCENT 22 % (BEAKER) (test code = 430) MONOCYTES RELATIVE PERCENT 8 % (BEAKER) (test code = 431) EOSINOPHILS RELATIVE PERCENT 3 % (BEAKER) (test code = 432) BASOPHILS RELATIVE PERCENT 1 % (BEAKER) (test code = 437) NEUTROPHILS ABSOLUTE COUNT 3.14 K/ L 1.78-5.38 (BEAKER) (test code = 670) LYMPHOCYTES ABSOLUTE COUNT 1.05 K/ L 1.32-3.57 L (BEAKER) (test code = 414) MONOCYTES ABSOLUTE COUNT (BEAKER) 0.37 K/ L 0.30-0.82 (test code = 415) EOSINOPHILS ABSOLUTE COUNT 0.14 K/ L 0.04-0.54 (BEAKER) (test code = 416) BASOPHILS ABSOLUTE COUNT (BEAKER) 0.05 K/ L 0.01-0.08 (test code = 417) IMMATURE GRANULOCYTES-RELATIVE 0 % 0-1 PERCENT (BEAKER) (test code = 2801) TACROLIMUS [id number] 14:52:00 Test Item Value Reference Range Interpretation Comments TACROLIMUS BLOOD (BEAKER) (test 7.9 ng/mL 10.0-20.0 L code = 657) [id number] 14:27:00 Test Item Value Reference Range Interpretation Comments MAGNESIUM (BEAKER) (test code = 1.6 mg/dL 1.6-2.6 627) BASIC METABOLIC [id number] 14:27:00 Test Item Value Reference Range Interpretation Comments SODIUM (BEAKER) 140 meq/L 136-145 (test code = 381) POTASSIUM (BEAKER) 4.0 meq/L 3.5-5.1 (test code = 379) CHLORIDE (BEAKER) 115 meq/L 98-107 H (test code = 382) CO2 (BEAKER) (test 18 meq/L 22-29 L code = 355) BLOOD UREA NITROGEN 28 mg/dL 7-21 H (BEAKER) (test code = 354) CREATININE (BEAKER) 1.71 mg/dL 0.57-1.25 H (test code = 358) GLUCOSE RANDOM 113 mg/dL 70-105 H (BEAKER) (test code = 652) CALCIUM (BEAKER) 8.7 mg/dL 8.4-10.2 (test code = 697) EGFR (BEAKER) (test 41 mL/min/1.73 ESTIMA ROBERTA GFR IS code = 1092) sq m NOT ACCURATE CREATININE CLEARANCE IN PREDICTING GLOMERULAR FILTRATION RATE . ESTIMATED GFR I S NOT APPLICABLE FOR DIALYSIS PATIEN TS. CBC W/PLT COUNT & AUTO [id number] 14:18:00 Test Item Value Reference Range Interpretation Comments WHITE BLOOD CELL COUNT (BEAKER) 8.1 K/ L 3.5-10.5 (test code = 775) RED BLOOD CELL COUNT (BEAKER) 3.48 M/ L 4.63-6.08 L (test code = 761) HEMOGLOBIN (BEAKER) (test code = 10.2 GM/DL 13.7-17.5 L 410) HEMATOCRIT (BEAKER) (test code = 32.9 % 40.1-51.0 L 411) MEAN CORPUSCULAR VOLUME (BEAKER) 94.5 fL 79.0-92.2 H (test code = 753) MEAN CORPUSCULAR HEMOGLOBIN 29.3 pg 25.7-32.2 (BEAKER) (test code = 751) MEAN CORPUSCULAR HEMOGLOBIN CONC 31.0 GM/DL 32.3-36.5 L (BEAKER) (test code = 752) RED CELL DISTRIBUTION WIDTH 16.4 % 11.6-14.4 H (BEAKER) (test code = 412) PLATELET COUNT (BEAKER) (test code 83 K/CU MM 150-450 L = 756) MEAN PLATELET VOLUME (BEAKER) 10.7 fL 9.4-12.4 (test code = 754) NUCLEATED RED BLOOD CELLS (BEAKER) 0 /100 WBC 0-0 (test code = 413) NEUTROPHILS RELATIVE PERCENT 84 % (BEAKER) (test code = 429) LYMPHOCYTES RELATIVE PERCENT 11 % (BEAKER) (test code = 430) MONOCYTES RELATIVE PERCENT 3 % (BEAKER) (test code = 431) EOSINOPHILS RELATIVE PERCENT 1 % (BEAKER) (test code = 432) BASOPHILS RELATIVE PERCENT 1 % (BEAKER) (test code = 437) NEUTROPHILS ABSOLUTE COUNT 6.80 K/ L 1.78-5.38 H (BEAKER) (test code = 670) LYMPHOCYTES ABSOLUTE COUNT 0.87 K/ L 1.32-3.57 L (BEAKER) (test code = 414) MONOCYTES ABSOLUTE COUNT (BEAKER) 0.26 K/ L 0.30-0.82 L (test code = 415) EOSINOPHILS ABSOLUTE COUNT 0.11 K/ L 0.04-0.54 (BEAKER) (test code = 416) BASOPHILS ABSOLUTE COUNT (BEAKER) 0.05 K/ L 0.01-0.08 (test code = 417) IMMATURE GRANULOCYTES-RELATIVE 0 % 0-1 PERCENT (BEAKER) (test code = 2801) CMV PCR, [id number] 15:45:00 Test Item Value Reference Range Interpretation Comments CMV VIRAL LOAD - Negative or below the NEGATIVE (BEAKER) (test linear range of the code = 2558) assay (<375 copies/mL) Cytomegalovirus (CMV) infection can [...] viral load canbe evaluated by identifying a 10-fold change, as well as assessing the CMV DNA viral load and the clinical context for each patient.The plasma CMV DNA viral load was detected using quantitative polymerase chain reaction and fluorescent monitoring of a specific hybridized probe. Genetic variation and ot her factors can affect the accuracy of nucleic acid testing. Therefore, the results should be interpreted in light of clinical data. A negative result may not exclude the presence of CMV disease.This test was developed and its performance characteristics determined by the [facility] Path ology Department, Section of Molecular Pathology. It has not been cleared or approved by the U.S. Food and Drug Administration (FDA), since FDA approval is not required for clinical use of the test. Validation was done as required by The Clinical Laboratory Improvement Amendments of 1988.TACROLIMUS LEVEL 2019-05-19 12:22:00 Test Item Value Reference Range Interpretation Comments TACROLIMUS BLOOD (BEAKER) (test 8.9 ng/mL 10.0-20.0 L code = 657) RAD, CHEST, 2 [id number] 11:35:00Referring: Dr. Yary Fernando for Exam:->s/p lung transplantFINAL REPORT INDICATION: s/p lung transplant COMPARISON: None TECHNIQUE: Frontal and lateral views of the chest. FINDINGS: Lungs and pleura: Clear lungs. No effusion.Heart and med iastinum: Normal heart size. Unremarkable mediastinal contours.Osseous structures: No acute abnormality.Additional findings: Post procedure changes compatible with prior transplant. IMPRESSION: No acute intrathoracic abnormality. Signed: Fitz Fernandez Verified Date/Time: 05/19/2019 11:35:20 Reading Location: [facility] Radiology Reading Room COMPREHENSIVE METABOLIC [id number] 10:12:00 Test Item Value Reference Range Interpretation Comments TOTAL PROTEIN 5.8 gm/dL 6.0-8.3 L (BEAKER) (test code = 770) ALBUMIN (BEAKER) 3.8 g/dL 3.5-5.0 (test code = 1145) ALKALINE PHOSPHATASE 447 U/L 40-150 H (BEAKER) (test code = 346) BILIRUBIN TOTAL 0.8 mg/dL 0.2-1.2 (BEAKER) (test code = 377) SODIUM (BEAKER) (test 145 meq/L 136-145 code = 381) POTASSIUM (BEAKER) 5.8 meq/L 3.5-5.1 H (test code = 379) CHLORIDE (BEAKER) 120 meq/L 98-107 H (test code = 382) CO2 (BEAKER) (test 18 meq/L 22-29 L code = 355) BLOOD UREA NITROGEN 23 mg/dL 7-21 H (BEAKER) (test code = 354) CREATININE (BEAKER) 2.28 mg/dL 0.57-1.25 H (test code = 358) GLUCOSE RANDOM 97 mg/dL 70-105 (BEAKER) (test code = 652) CALCIUM (BEAKER) 8.8 mg/dL 8.4-10.2 (test code = 697) AST (SGOT) (BEAKER) 47 U/L 5-34 H (test code = 353) ALT (SGPT) (BEAKER) 43 U/L 6-55 (test code = 347) EGFR (BEAKER) (test 29 mL/min/1.73 ESTIMA ROBERTA GFR IS code = 1092) sq m NOT ACCURATE CREATININE CLEARANCE IN PREDICTING GLOMERULAR FILTRATION RATE . ESTIMATED GFR I S NOT APPLICABLE FOR DIALYSIS PATIEN TS. [id number] 10:04:00 Test Item Value Reference Range Interpretation Comments PHOSPHORUS (BEAKER) (test code = 3.7 mg/dL 2.3-4.7 604) [id number] 10:04:00 Test Item Value Reference Range Interpretation Comments MAGNESIUM (BEAKER) (test code = 1.5 mg/dL 1.6-2.6 L 627) LACTATE DEHYDROGENASE (LDH)2019-05-19 10:04:00 Test Item Value Reference Range Interpretation Comments LACTATE DEHYDROGENASE (BEAKER) (test 186 U/L 125-220 code = 635) CBC W/PLT COUNT & AUTO [id number] 09:24:00 Test Item Value Reference Range Interpretation Comments WHITE BLOOD CELL COUNT (BEAKER) 4.5 K/ L 3.5-10.5 (test code = 775) RED BLOOD CELL COUNT (BEAKER) 3.49 M/ L 4.63-6.08 L (test code = 761) HEMOGLOBIN (BEAKER) (test code = 10.3 GM/DL 13.7-17.5 L 410) HEMATOCRIT (BEAKER) (test code = 34.0 % 40.1-51.0 L 411) MEAN CORPUSCULAR VOLUME (BEAKER) 97.4 fL 79.0-92.2 H (test code = 753) MEAN CORPUSCULAR HEMOGLOBIN 29.5 pg 25.7-32.2 (BEAKER) (test code = 751) MEAN CORPUSCULAR HEMOGLOBIN CONC 30.3 GM/DL 32.3-36.5 L (BEAKER) (test code = 752) RED CELL DISTRIBUTION WIDTH 17.1 % 11.6-14.4 H (BEAKER) (test code = 412) PLATELET COUNT (BEAKER) (test code 96 K/CU MM 150-450 L = 756) MEAN PLATELET VOLUME (BEAKER) 11.0 fL 9.4-12.4 (test code = 754) NUCLEATED RED BLOOD CELLS (BEAKER) 0 /100 WBC 0-0 (test code = 413) NEUTROPHILS RELATIVE PERCENT 64 % (BEAKER) (test code = 429) LYMPHOCYTES RELATIVE PERCENT 21 % (BEAKER) (test code = 430) MONOCYTES RELATIVE PERCENT 9 % (BEAKER) (test code = 431) EOSINOPHILS RELATIVE PERCENT 4 % (BEAKER) (test code = 432) BASOPHILS RELATIVE PERCENT 1 % (BEAKER) (test code = 437) NEUTROPHILS ABSOLUTE COUNT 2.91 K/ L 1.78-5.38 (BEAKER) (test code = 670) LYMPHOCYTES ABSOLUTE COUNT 0.95 K/ L 1.32-3.57 L (BEAKER) (test code = 414) MONOCYTES ABSOLUTE COUNT (BEAKER) 0.40 K/ L 0.30-0.82 (test code = 415) EOSINOPHILS ABSOLUTE COUNT 0.17 K/ L 0.04-0.54 (BEAKER) (test code = 416) BASOPHILS ABSOLUTE COUNT (BEAKER) 0.04 K/ L 0.01-0.08 (test code = 417) IMMATURE GRANULOCYTES-RELATIVE 1 % 0-1 PERCENT (BEAKER) (test code = 2801) CMV PCR, [id number] 14:26:00 Test Item Value Reference Range Interpretation Comments CMV VIRAL LOAD - Negative or below the NEGATIVE (BEAKER) (test linear range of the code = 2558) assay (<375 copies/mL) Cytomegalovirus (CMV) infection can [...] viral load canbe evaluated by identifying a 10-fold change, as well as assessing the CMV DNA viral load and the clinical context for each patient.The plasma CMV DNA viral load was detected using quantitative polymerase chain reaction and fluorescent monitoring of a specific hybridized probe. Genetic variation and ot her factors can affect the accuracy of nucleic acid testing. Therefore, the results should be interpreted in light of clinical data. A negative result may not exclude the presence of CMV disease.This test was developed and its performance characteristics determined by the [facility] Path ology Department, Section of Molecular Pathology. It has not been cleared or approved by the U.S. Food and Drug Administration (FDA), since FDA approval is not required for clinical use of the test. Validation was done as required by The Clinical Laboratory Improvement Amendments of 1988.MR, ABDOMEN, WITH 2019-05-13 15:52:00Referring: Dr. Yary Noriega MRCPWith MRCPLocation: For [place] Only->with MRCPFINAL REPORT TECHNIQUE: MRI of the [...] perfusional. These can also be reassessed on follow- up MRI. 4.Cholelithiasis. Signed: Georgi Mancilla MDReport Verified Date/Time: 05/13/2019 15:52:20 Reading Location: [address] TACROLIMUS [id number] 13:36:00 Test Item Value Reference Range Interpretation Comments TACROLIMUS BLOOD (BEAKER) (test 9.8 ng/mL 10.0-20.0 L code = 657) [id number] 13:00:00 Test Item Value Reference Range Interpretation Comments PHOSPHORUS (BEAKER) (test code = 3.2 mg/dL 2.3-4.7 604) [id number] 13:00:00 Test Item Value Reference Range Interpretation Comments MAGNESIUM (BEAKER) (test code = 1.6 mg/dL 1.6-2.6 627) COMPREHENSIVE METABOLIC [id number] 13:00:00 Test Item Value Reference Range Interpretation Comments TOTAL PROTEIN 5.1 gm/dL 6.0-8.3 L (BEAKER) (test code = 770) ALBUMIN (BEAKER) 3.3 g/dL 3.5-5.0 L (test code = 1145) ALKALINE PHOSPHATASE 392 U/L 40-150 H (BEAKER) (test code = 346) BILIRUBIN TOTAL 0.8 mg/dL 0.2-1.2 (BEAKER) (test code = 377) SODIUM (BEAKER) (test 139 meq/L 136-145 code = 381) POTASSIUM (BEAKER) 4.4 meq/L 3.5-5.1 (test code = 379) CHLORIDE (BEAKER) 113 meq/L 98-107 H (test code = 382) CO2 (BEAKER) (test 19 meq/L 22-29 L code = 355) BLOOD UREA NITROGEN 19 mg/dL 7-21 (BEAKER) (test code = 354) CREATININE (BEAKER) 1.70 mg/dL 0.57-1.25 H (test code = 358) GLUCOSE RANDOM 130 mg/dL 70-105 H (BEAKER) (test code = 652) CALCIUM (BEAKER) 8.0 mg/dL 8.4-10.2 L (test code = 697) AST (SGOT) (BEAKER) 43 U/L 5-34 H (test code = 353) ALT (SGPT) (BEAKER) 36 U/L 6-55 (test code = 347) EGFR (BEAKER) (test 41 mL/min/1.73 ESTIMA ROBERTA GFR IS code = 1092) sq m NOT ACCURATE CREATININE CLEARANCE IN PREDICTING GLOMERULAR FILTRATION RATE . ESTIMATED GFR I S NOT APPLICABLE FOR DIALYSIS PATIEN TS. CBC W/PLT COUNT & AUTO [id number] 12:49:00 Test Item Value Reference Range Interpretation Comments WHITE BLOOD CELL COUNT (BEAKER) 1.7 K/ L 3.5-10.5 L (test code = 775) RED BLOOD CELL COUNT (BEAKER) 2.98 M/ L 4.63-6.08 L (test code = 761) HEMOGLOBIN (BEAKER) (test code = 8.8 GM/DL 13.7-17.5 L 410) HEMATOCRIT (BEAKER) (test code = 28.9 % 40.1-51.0 L 411) MEAN CORPUSCULAR VOLUME (BEAKER) 97.0 fL 79.0-92.2 H (test code = 753) MEAN CORPUSCULAR HEMOGLOBIN 29.5 pg 25.7-32.2 (BEAKER) (test code = 751) MEAN CORPUSCULAR HEMOGLOBIN CONC 30.4 GM/DL 32.3-36.5 L (BEAKER) (test code = 752) RED CELL DISTRIBUTION WIDTH 16.9 % 11.6-14.4 H (BEAKER) (test code = 412) PLATELET COUNT (BEAKER) (test code 60 K/CU MM 150-450 L = 756) MEAN PLATELET VOLUME (BEAKER) 11.1 fL 9.4-12.4 (test code = 754) NUCLEATED RED BLOOD CELLS (BEAKER) 0 /100 WBC 0-0 (test code = 413) No clot(CELLAVISION MANUAL DIFF)2019-05-13 12:49:00 Test Item Value Reference Range Interpretation Comments NEUTROPHILS - REL 66 % (CELLAVISION)(BEAKER) (test code = 2816) LYMPHOCYTES - REL 18 % (CELLAVISION)(BEAKER) (test code = 2817) MONOCYTES - REL 9 % (CELLAVISION)(BEAKER) (test code = 2818) EOSINOPHILS - REL 1 % (CELLAVISION)(BEAKER) (test code = 2819) BASOPHILS - REL 2 % (CELLAVISION)(BEAKER) (test code = 2820) BANDS - REL (CELLAVISION)(BEAKER) 3 % 0-10 (test code = 2826) NEUTROPHILS - ABS 1.12 K/ul 1.78-5.38 L (CELLAVISION)(BEAKER) (test code = 2830) LYMPHOCYTES - ABS 0.31 K/ul 1.32-3.57 L (CELLAVISION)(BEAKER) (test code = 2831) MONOCYTES - ABS 0.15 K/uL 0.30-0.82 L (CELLAVISION)(BEAKER) (test code = 2832) EOSINOPHILS - ABS 0.02 K/uL 0.04-0.54 L (CELLAVISION)(BEAKER) (test code = 2834) BASOPHILS - ABS 0.03 K/uL 0.01-0.08 (CELLAVISION)(BEAKER) (test code = 2835) BANDS - ABS (CELLAVISION)(BEAKER) 0.05 K/uL 0.00-0.80 (test code = 2840) TOTAL COUNTED (BEAKER) (test code = 100 1351) WBC MORPHOLOGY (BEAKER) (test code Normal = 487) PLT MORPHOLOGY (BEAKER) (test code Normal = 486) ANISOCYTOSIS (BEAKER) (test code = 1+ few 961) POIKILOCYTES (BEAKER) (test code = 3+ many 966) ELLIPTOCYTES (BEAKER) (test code = 1+ few 962) OVALOCYTES (BEAKER) (test code = 3+ many 477) ARTIFACT (CELLAVISION)(BEAKER) Present (test code = 3432) PLATELET CONCENTRATION Decreased (CELLAVISION)(BEAKER) (test code = 3438) Received comment: User comments: Slide comments:TACROLIMUS [id number] 09:45:00 Test Item Value Reference Range Interpretation Comments TACROLIMUS BLOOD (BEAKER) (test 13.2 ng/mL 10.0-20.0 code = 657) ALPHA FETOPROTEIN (AFP), TUMOR [id number] 18:10:00 Test Item Value Reference Range Interpretation Comments ALPHA-FETOPROTEIN (BEAKER) (test 2.8 ng/mL <10.0 code = 1094) [id number] 17:45:00 Test Item Value Reference Range Interpretation Comments MAGNESIUM (BEAKER) (test code = 1.6 mg/dL 1.6-2.6 627) BASIC METABOLIC [id number] 17:45:00 Test Item Value Reference Range Interpretation Comments SODIUM (BEAKER) 141 meq/L 136-145 (test code = 381) POTASSIUM (BEAKER) 5.1 meq/L 3.5-5.1 (test code = 379) CHLORIDE (BEAKER) 115 meq/L 98-107 H (test code = 382) CO2 (BEAKER) (test 25 meq/L 22-29 code = 355) BLOOD UREA NITROGEN 27 mg/dL 7-21 H (BEAKER) (test code = 354) CREATININE (BEAKER) 1.61 mg/dL 0.57-1.25 H (test code = 358) GLUCOSE RANDOM 101 mg/dL 70-105 (BEAKER) (test code = 652) CALCIUM (BEAKER) 8.2 mg/dL 8.4-10.2 L (test code = 697) EGFR (BEAKER) (test 44 mL/min/1.73 ESTIMA ROBERTA GFR IS code = 1092) sq m NOT ACCURATE CREATININE CLEARANCE IN PREDICTING GLOMERULAR FILTRATION RATE . ESTIMATED GFR I S NOT APPLICABLE FOR DIALYSIS PATIEN TS. HEPATIC FUNCTION [id number] 17:45:00 Test Item Value Reference Range Interpretation Comments TOTAL PROTEIN (BEAKER) (test code = 4.9 gm/dL 6.0-8.3 L 770) ALBUMIN (BEAKER) (test code = 1145) 3.1 g/dL 3.5-5.0 L BILIRUBIN TOTAL (BEAKER) (test code 1.0 mg/dL 0.2-1.2 = 377) BILIRUBIN DIRECT (BEAKER) (test 0.6 mg/dL 0.1-0.5 H code = 706) ALKALINE PHOSPHATASE (BEAKER) (test 340 U/L 40-150 H code = 346) AST (SGOT) (BEAKER) (test code = 41 U/L 5-34 H 353) ALT (SGPT) (BEAKER) (test code = 32 U/L 6-55 347) BASIC METABOLIC [id number] 17:43:00 Test Item Value Reference Range Interpretation Comments SODIUM (BEAKER) 141 meq/L 136-145 (test code = 381) POTASSIUM (BEAKER) 5.1 meq/L 3.5-5.1 (test code = 379) CHLORIDE (BEAKER) 115 meq/L 98-107 H (test code = 382) CO2 (BEAKER) (test 25 meq/L 22-29 code = 355) BLOOD UREA NITROGEN 27 mg/dL 7-21 H (BEAKER) (test code = 354) CREATININE (BEAKER) 1.63 mg/dL 0.57-1.25 H (test code = 358) GLUCOSE RANDOM 100 mg/dL 70-105 (BEAKER) (test code = 652) CALCIUM (BEAKER) 8.2 mg/dL 8.4-10.2 L (test code = 697) EGFR (BEAKER) (test 43 mL/min/1.73 ESTIMA ROBERTA GFR IS code = 1092) sq m NOT ACCURATE CREATININE CLEARANCE IN PREDICTING GLOMERULAR FILTRATION RATE . ESTIMATED GFR I S NOT APPLICABLE FOR DIALYSIS PATIEN TS. URINALYSIS W/ [id number] 17:35:00 Test Item Value Reference Range Interpretation Comments COLOR (BEAKER) (test code = 470) Yellow CLARITY (BEAKER) (test code = 469) Clear SPECIFIC GRAVITY UA (BEAKER) (test 1.023 1.001-1.035 code = 468) PH UA (BEAKER) (test code = 467) 5.0 5.0-8.0 PROTEIN UA (BEAKER) (test code = 20 mg/dL Negative A 464) GLUCOSE UA (BEAKER) (test code = Negative Negative 365) KETONES UA (BEAKER) (test code = Negative Negative 371) BILIRUBIN UA (BEAKER) (test code = Negative Negative 462) BLOOD UA (BEAKER) (test code = Negative Negative 461) NITRITE UA (BEAKER) (test code = Negative Negative 465) LEUKOCYTE ESTERASE UA (BEAKER) Negative Negative (test code = 466) UROBILINOGEN UA (BEAKER) (test 0.2 mg/dL 0.2-1.0 code = 463) RBC UA (BEAKER) (test code = 519) < /HPF WBC UA (BEAKER) (test code = 520) < /HPF MUCUS (BEAKER) (test code = 1574) Occasional HYALINE CASTS (BEAKER) (test code 2 /LPF = 514) SOURCE(BEAKER) (test code = 2795) PROTHROMBIN [id number] 17:26:00 Test Item Value Reference Range Interpretation Comments PROTIME (BEAKER) (test code = 15.9 seconds 11.9-14.2 H 759) INR (BEAKER) (test code = 370) 1.3 <=5.9 Effective 11/26/2018: PT Reference Range ChangeNew: 11.9-14.2 Previous: 11.7- 14.7RECOMMENDED COUMADIN/WARFARIN INR THERAPY RANGESSTANDARD DOSE: 2.0-3.0 Includes: PROPHYLAXIS for venous thrombosis, systemic embolization; TREATMENT for venous thrombosis and/or pulmonary embolus.HIGH RISK: Target INR is2.5-3.5 for patients wiht mechanical heart valves.CBC W/PLT COUNT & AUTO [id number] 17:19:00 Test Item Value Reference Range Interpretation Comments WHITE BLOOD CELL COUNT (BEAKER) 4.0 K/ L 3.5-10.5 (test code = 775) RED BLOOD CELL COUNT (BEAKER) 3.08 M/ L 4.63-6.08 L (test code = 761) HEMOGLOBIN (BEAKER) (test code = 9.1 GM/DL 13.7-17.5 L 410) HEMATOCRIT (BEAKER) (test code = 29.7 % 40.1-51.0 L 411) MEAN CORPUSCULAR VOLUME (BEAKER) 96.4 fL 79.0-92.2 H (test code = 753) MEAN CORPUSCULAR HEMOGLOBIN 29.5 pg 25.7-32.2 (BEAKER) (test code = 751) MEAN CORPUSCULAR HEMOGLOBIN CONC 30.6 GM/DL 32.3-36.5 L (BEAKER) (test code = 752) RED CELL DISTRIBUTION WIDTH 17.5 % 11.6-14.4 H (BEAKER) (test code = 412) PLATELET COUNT (BEAKER) (test 112 K/CU MM 150-450 L code = 756) MEAN PLATELET VOLUME (BEAKER) 10.9 fL 9.4-12.4 (test code = 754) NUCLEATED RED BLOOD CELLS 0 /100 WBC 0-0 (BEAKER) (test code = 413) NEUTROPHILS RELATIVE PERCENT 66 % (BEAKER) (test code = 429) LYMPHOCYTES RELATIVE PERCENT 22 % (BEAKER) (test code = 430) MONOCYTES RELATIVE PERCENT 8 % (BEAKER) (test code = 431) EOSINOPHILS RELATIVE PERCENT 2 % (BEAKER) (test code = 432) BASOPHILS RELATIVE PERCENT 2 % (BEAKER) (test code = 437) NEUTROPHILS ABSOLUTE COUNT 2.61 K/ L 1.78-5.38 (BEAKER) (test code = 670) LYMPHOCYTES ABSOLUTE COUNT 0.88 K/ L 1.32-3.57 L (BEAKER) (test code = 414) MONOCYTES ABSOLUTE COUNT (BEAKER) 0.31 K/ L 0.30-0.82 (test code = 415) EOSINOPHILS ABSOLUTE COUNT 0.07 K/ L 0.04-0.54 (BEAKER) (test code = 416) BASOPHILS ABSOLUTE COUNT (BEAKER) 0.08 K/ L 0.01-0.08 (test code = 417) IMMATURE GRANULOCYTES-RELATIVE 0 % 0-1 PERCENT (BEAKER) (test code = 2801) CBC W/PLT COUNT & AUTO [id number] 17:18:00 Test Item Value Reference Range Interpretation Comments WHITE BLOOD CELL COUNT (BEAKER) 4.0 K/ L 3.5-10.5 (test code = 775) RED BLOOD CELL COUNT (BEAKER) 3.00 M/ L 4.63-6.08 L (test code = 761) HEMOGLOBIN (BEAKER) (test code = 9.0 GM/DL 13.7-17.5 L 410) HEMATOCRIT (BEAKER) (test code = 29.3 % 40.1-51.0 L 411) MEAN CORPUSCULAR VOLUME (BEAKER) 97.7 fL 79.0-92.2 H (test code = 753) MEAN CORPUSCULAR HEMOGLOBIN 30.0 pg 25.7-32.2 (BEAKER) (test code = 751) MEAN CORPUSCULAR HEMOGLOBIN CONC 30.7 GM/DL 32.3-36.5 L (BEAKER) (test code = 752) RED CELL DISTRIBUTION WIDTH 17.5 % 11.6-14.4 H (BEAKER) (test code = 412) PLATELET COUNT (BEAKER) (test 113 K/CU MM 150-450 L code = 756) MEAN PLATELET VOLUME (BEAKER) 11.3 fL 9.4-12.4 (test code = 754) NUCLEATED RED BLOOD CELLS 0 /100 WBC 0-0 (BEAKER) (test code = 413) NEUTROPHILS RELATIVE PERCENT 68 % (BEAKER) (test code = 429) LYMPHOCYTES RELATIVE PERCENT 21 % (BEAKER) (test code = 430) MONOCYTES RELATIVE PERCENT 7 % (BEAKER) (test code = 431) EOSINOPHILS RELATIVE PERCENT 2 % (BEAKER) (test code = 432) BASOPHILS RELATIVE PERCENT 2 % (BEAKER) (test code = 437) NEUTROPHILS ABSOLUTE COUNT 2.76 K/ L 1.78-5.38 (BEAKER) (test code = 670) LYMPHOCYTES ABSOLUTE COUNT 0.83 K/ L 1.32-3.57 L (BEAKER) (test code = 414) MONOCYTES ABSOLUTE COUNT (BEAKER) 0.29 K/ L 0.30-0.82 L (test code = 415) EOSINOPHILS ABSOLUTE COUNT 0.07 K/ L 0.04-0.54 (BEAKER) (test code = 416) BASOPHILS ABSOLUTE COUNT (BEAKER) 0.06 K/ L 0.01-0.08 (test code = 417) IMMATURE GRANULOCYTES-RELATIVE 1 % 0-1 PERCENT (BEAKER) (test code = 2801) BODY FLUID CULTURE + GRAM [id number] 14:13:00 Test Item Value Reference Range Interpretation Comments CULTURE (BEAKER) (test code No growth = 1095) GRAM STAIN RESULT (BEAKER) 1+ WBCs (test code = 1123) GRAM STAIN RESULT (BEAKER) No organisms seen (test code = 01659) LACTATE DEHYDROGENASE (LDH), BODY [id number] 19:19:00 Test Item Value Reference Range Interpretation Comments LACTATE DEHYDROGENASE FLUID (BEAKER) < U/L (test code = 634) Absence of reference range indicates that normals have not been defined.Assay performance has not been validated for this type of specimen.U/S, PARACENTESIS 2019-05-01 18:38:00Referring: Dr. Yary Olivas to be ordered:->Body Fluid Culture (w/Gram Stain, C\\T\\S)Reason for exam:->ABDOMINAL PAINFINAL REPORT Ultrasound guided paracentesis Clinical History: Ascites. Sedation: None. Tinsmith Apprentice: Aure Huerta PA-C Supervising Physician: Torey Burkett MD Assistant Finance Manager: None. Estimated Blood Loss: < 1 mL. [...] anesthesia was achieved with lidocaine, a 5 Chinese one-step catheter was advanced into the peritoneal cavity under ultrasound guidance. After completion of drainage, the catheter was removed. There was no evidence of complication. This procedure was performed by PRIYANKA Ramírez under direct supervision of Torey Burkett M.D. Impression:Successful ultrasound guided paracentesis. Signed:Torey Burkett MDReport Verified Date/Time: 05/01/2019 18:38:36 Reading Location: [facility] B1 [id number] Ultrasound Reading Room U/S, [id number] 18:05:00Referring: Dr. Yary Olvias to be ordered:->Body Fluid Culture (w/Gram Stain, C\\T\\S)Labs to be ordered:->Glucose+LDH+ProteinReason for exam:->ABD SWELLINGShould this be performed at the bedside?->YesFINAL REPORT Ultrasound guided paracentesis, 05/01/2019. Clinical History: Ascites. Sedation: None. Tinsmith Apprentice: Lola. Assistant Finance Manager: None. Estimated Blood Loss: < 1 cc. Specimen: 800 cc of clear yellow fluid, samples sent to [...] manner. After local anesthesia was achieved with 1% lidocaine, a 5 Chinese one-step catheter was advanced into the peritoneal cavity under ultrasound guidance. After completion of drainage, the catheter was removed. There was no evidence of complication.Patient Disposition: The patient was discharged from the ultrasound department after the paracentesis, in good condition. Impression:Successful ultrasound guided paracentesis. Signed: Rohit Ruth MDReport Verified Date/Time: 05/01/2019 18:05:44 Reading Location: [facility] P048 Angio Body Reading Room BODY FLUID CELL COUNT WITH [id number] 17:23:00 Test Item Value Reference Range Interpretation Comments APPEARANCE FLUID (BEAKER) Slightly Cloudy Clear A (test code = 510) COLOR FLUID (BEAKER) (test Straw Colorless, Straw code = 511) RBC FLUID (BEAKER) (test 370 /cu mm <=1 H code = 513) ADJUSTED WBC FLUID (BEAKER) 624 /cu mm <=5 H (test code = 1691) LINING CELLS (BEAKER) (test 6 /cu mm <=1 H code = 1590) NEUTROPHILS FLUID (BEAKER) 8 % (test code = 1656) LYMPHS FLUID (BEAKER) (test 44 % code = 488) MONO/MACROPHAGE FLUID 47 % (BEAKER) (test code = 489) EOSINOPHILS FLUID (BEAKER) 0 % (test code = 491) BASO FLUID (BEAKER) (test 1 % code = 492) CONTAINER BODY FLUID EDTA Tube (BEAKER) (test code = 2873) ALBUMIN, BODY [id number] 17:17:00 Test Item Value Reference Range Interpretation Comments ALBUMIN FLUID (BEAKER) (test code = 0.5 gm/dL 501) Reference Range: No Normals Assay performance has not been validated for this type of specimen.PROTEIN, BODY [id number] 17:16:00 Test Item Value Reference Range Interpretation Comments PROTEIN FLUID (BEAKER) (test code = 0.8 g/dL 579) Absence of reference range indicates that normals have not been defined.Assay performance has not been validated for this type of specimen.GLUCOSE, BODY FLUID 2019-05-01 17:07:00 Test Item Value Reference Range Interpretation Comments GLUCOSE, BODY FLUID (BEAKER) (test 94 mg/dL code = 1528) Absence of reference range indicates that normals have not been defined.Assay performance has not been validated for this type of specimen.TACROLIMUS LEVEL 2019-05-01 16:10:00 Test Item Value Reference Range Interpretation Comments TACROLIMUS BLOOD (BEAKER) (test 7.4 ng/mL 10.0-20.0 L code = 657) COMPREHENSIVE METABOLIC [id number] 15:01:00 Test Item Value Reference Range Interpretation Comments TOTAL PROTEIN 5.3 gm/dL 6.0-8.3 L (BEAKER) (test code = 770) ALBUMIN (BEAKER) 3.2 g/dL 3.5-5.0 L (test code = 1145) ALKALINE PHOSPHATASE 373 U/L 40-150 H (BEAKER) (test code = 346) BILIRUBIN TOTAL 1.0 mg/dL 0.2-1.2 (BEAKER) (test code = 377) SODIUM (BEAKER) (test 139 meq/L 136-145 code = 381) POTASSIUM (BEAKER) 4.5 meq/L 3.5-5.1 (test code = 379) CHLORIDE (BEAKER) 111 meq/L 98-107 H (test code = 382) CO2 (BEAKER) (test 23 meq/L 22-29 code = 355) BLOOD UREA NITROGEN 27 mg/dL 7-21 H (BEAKER) (test code = 354) CREATININE (BEAKER) 1.41 mg/dL 0.57-1.25 H (test code = 358) GLUCOSE RANDOM 84 mg/dL 70-105 (BEAKER) (test code = 652) CALCIUM (BEAKER) 7.8 mg/dL 8.4-10.2 L (test code = 697) AST (SGOT) (BEAKER) 54 U/L 5-34 H (test code = 353) ALT (SGPT) (BEAKER) 40 U/L 6-55 (test code = 347) EGFR (BEAKER) (test 51 mL/min/1.73 ESTIMA ROBERTA GFR IS code = 1092) sq m NOT ACCURATE CREATININE CLEARANCE IN PREDICTING GLOMERULAR FILTRATION RATE . ESTIMATED GFR I S NOT APPLICABLE FOR DIALYSIS PATIEN TS. [id number] 14:57:00 Test Item Value Reference Range Interpretation Comments MAGNESIUM (BEAKER) (test code = 1.8 mg/dL 1.6-2.6 627) [id number] 14:57:00 Test Item Value Reference Range Interpretation Comments PROTIME (BEAKER) (test code = 15.1 seconds 11.9-14.2 H 759) INR (BEAKER) (test code = 370) 1.2 <=5.9 PARTIAL THROMBOPLASTIN TIME 32.8 seconds 22.5-36.0 (BEAKER) (test code = 760) Effective 11/26/2018: PT Reference Range ChangeNew: 11.9-14.2 Previous: 11.7- 14.7RECOMMENDED COUMADIN/WARFARIN INR THERAPY RANGESSTANDARD DOSE: 2.0-3.0 Includes: PROPHYLAXIS for venous thrombosis, systemic embolization; TREATMENT for venous thrombosis and/or pulmonary embolus.HIGH RISK: Target INR is2.5-3.5 for patients wiht mechanical heart valves.RAD, CHEST, 1 VIEW, NON [id number] 14:53:00Referring: Dr. Yary Fernando for exam:->chest painShould this be performed at the bedside?->YesFINAL REPORT TECHNIQUE: Frontal chest radiograph dated 05/01/2019. CLINICAL HISTORY: Chest pain COMPARISON STUDY: Chest radiograph dated 04/22/2019 IMPRESSION:Blunting along the costophrenic angles is due to either scarring and/or trace effusion. No pneumothorax. Cardiomediastinal silhouette is normal in size. No pulmonary edema. No fracture. Midline sternotomy wires are intactand well aligned. Signed: Micheal Crenshaw MDReport Verified Date/Time: 05/01/2019 14:53:51 Reading Location: [facility] Reading Room CBC W/PLT COUNT & AUTO DIFFERENTIAL 2019-05-01 14:42:00 Test Item Value Reference Range Interpretation Comments WHITE BLOOD CELL COUNT (BEAKER) 3.8 K/ L 3.5-10.5 (test code = 775) RED BLOOD CELL COUNT (BEAKER) 3.17 M/ L 4.63-6.08 L (test code = 761) HEMOGLOBIN (BEAKER) (test code = 9.5 GM/DL 13.7-17.5 L 410) HEMATOCRIT (BEAKER) (test code = 30.8 % 40.1-51.0 L 411) MEAN CORPUSCULAR VOLUME (BEAKER) 97.2 fL 79.0-92.2 H (test code = 753) MEAN CORPUSCULAR HEMOGLOBIN 30.0 pg 25.7-32.2 (BEAKER) (test code = 751) MEAN CORPUSCULAR HEMOGLOBIN CONC 30.8 GM/DL 32.3-36.5 L (BEAKER) (test code = 752) RED CELL DISTRIBUTION WIDTH 17.2 % 11.6-14.4 H (BEAKER) (test code = 412) PLATELET COUNT (BEAKER) (test code 66 K/CU MM 150-450 L = 756) MEAN PLATELET VOLUME (BEAKER) 12.4 fL 9.4-12.4 (test code = 754) NUCLEATED RED BLOOD CELLS (BEAKER) 0 /100 WBC 0-0 (test code = 413) NEUTROPHILS RELATIVE PERCENT 73 % (BEAKER) (test code = 429) LYMPHOCYTES RELATIVE PERCENT 18 % (BEAKER) (test code = 430) MONOCYTES RELATIVE PERCENT 5 % (BEAKER) (test code = 431) EOSINOPHILS RELATIVE PERCENT 2 % (BEAKER) (test code = 432) BASOPHILS RELATIVE PERCENT 1 % (BEAKER) (test code = 437) NEUTROPHILS ABSOLUTE COUNT 2.76 K/ L 1.78-5.38 (BEAKER) (test code = 670) LYMPHOCYTES ABSOLUTE COUNT 0.68 K/ L 1.32-3.57 L (BEAKER) (test code = 414) MONOCYTES ABSOLUTE COUNT (BEAKER) 0.20 K/ L 0.30-0.82 L (test code = 415) EOSINOPHILS ABSOLUTE COUNT 0.09 K/ L 0.04-0.54 (BEAKER) (test code = 416) BASOPHILS ABSOLUTE COUNT (BEAKER) 0.02 K/ L 0.01-0.08 (test code = 417) IMMATURE GRANULOCYTES-RELATIVE 1 % 0-1 PERCENT (BEAKER) (test code = 2801) BODY FLUID CULTURE + GRAM [id number] 11:52:00 Test Item Value Reference Range Interpretation Comments CULTURE (BEAKER) (test No growth code = 1095) GRAM STAIN RESULT <1+ White blood cells (BEAKER) (test code = seen 1123) GRAM STAIN RESULT No organisms seen (BEAKER) (test code = 21316) BODY FLUID CELL COUNT WITH [id number] 18:29:00 Test Item Value Reference Range Interpretation Comments APPEARANCE FLUID (BEAKER) Slightly Hazy Clear A (test code = 510) COLOR FLUID (BEAKER) (test Yellow Colorless, Straw A code = 511) RBC FLUID (BEAKER) (test code 403 /cu mm <=1 H = 513) ADJUSTED WBC FLUID (BEAKER) 650 /cu mm <=5 H (test code = 1691) LINING CELLS (BEAKER) (test 6 /cu mm <=1 H code = 1590) NEUTROPHILS FLUID (BEAKER) 44 % (test code = 1656) LYMPHS FLUID (BEAKER) (test 32 % code = 488) MONO/MACROPHAGE FLUID (BEAKER) 23 % (test code = 489) EOSINOPHILS FLUID (BEAKER) 0 % (test code = 491) BASO FLUID (BEAKER) (test code 1 % = 492) CONTAINER BODY FLUID (BEAKER) EDTA Tube (test code = 2873) CBC W/PLT COUNT & AUTO [id number] 14:08:00 Test Item Value Reference Range Interpretation Comments WHITE BLOOD CELL COUNT (BEAKER) 4.0 K/ L 3.5-10.5 (test code = 775) RED BLOOD CELL COUNT (BEAKER) 3.09 M/ L 4.63-6.08 L (test code = 761) HEMOGLOBIN (BEAKER) (test code = 9.1 GM/DL 13.7-17.5 L 410) HEMATOCRIT (BEAKER) (test code = 29.3 % 40.1-51.0 L 411) MEAN CORPUSCULAR VOLUME (BEAKER) 94.8 fL 79.0-92.2 H (test code = 753) MEAN CORPUSCULAR HEMOGLOBIN 29.4 pg 25.7-32.2 (BEAKER) (test code = 751) MEAN CORPUSCULAR HEMOGLOBIN CONC 31.1 GM/DL 32.3-36.5 L (BEAKER) (test code = 752) RED CELL DISTRIBUTION WIDTH 17.0 % 11.6-14.4 H (BEAKER) (test code = 412) PLATELET COUNT (BEAKER) (test code 41 K/CU MM 150-450 L = 756) MEAN PLATELET VOLUME (BEAKER) 10.1 fL 9.4-12.4 (test code = 754) NUCLEATED RED BLOOD CELLS (BEAKER) 1 /100 WBC 0-0 H (test code = 413) (CELLAVISION MANUAL DIFF)[id number] 14:08:00 Test Item Value Reference Range Interpretation Comments NEUTROPHILS - REL 70 % (CELLAVISION)(BEAKER) (test code = 2816) LYMPHOCYTES - REL 13 % (CELLAVISION)(BEAKER) (test code = 2817) MONOCYTES - REL 9 % (CELLAVISION)(BEAKER) (test code = 2818) EOSINOPHILS - REL 2 % (CELLAVISION)(BEAKER) (test code = 2819) METAMYELOCYTES - REL 3 % 0-0 H (CELLAVISION)(BEAKER) (test code = 2821) MYELOCYTES - REL 3 % 0-0 H (CELLAVISION)(BEAKER) (test code = 2822) NEUTROPHILS - ABS 2.80 K/ul 1.78-5.38 (CELLAVISION)(BEAKER) (test code = 2830) LYMPHOCYTES - ABS 0.52 K/ul 1.32-3.57 L (CELLAVISION)(BEAKER) (test code = 2831) MONOCYTES - ABS 0.36 K/uL 0.30-0.82 (CELLAVISION)(BEAKER) (test code = 2832) EOSINOPHILS - ABS 0.08 K/uL 0.04-0.54 (CELLAVISION)(BEAKER) (test code = 2834) METAMYELOCYTES - ABS 0.12 K/uL 0.00-0.00 H (CELLAVISION)(BEAKER) (test code = 2836) MYELOCYTES-ABS 0.12 K/uL 0.00-0.00 H (CELLAVISION)(BEAKER) (test code = 2837) TOTAL COUNTED (BEAKER) (test code 100 = 1351) WBC MORPHOLOGY (BEAKER) (test Normal code = 487) PLT MORPHOLOGY (BEAKER) (test Normal code = 486) ANISOCYTOSIS (BEAKER) (test code 1+ few = 961) MICROCYTES (BEAKER) (test code = 1+ few 965) POIKILOCYTES (BEAKER) (test code 2+ moderate = 966) ELLIPTOCYTES (BEAKER) (test code 2+ moderate = 962) ACANTHOCYTES (BEAKER) (test code 1+ few = 471) ARTIFACT (CELLAVISION)(BEAKER) Present (test code = 3432) PLATELET CONCENTRATION Decreased (CELLAVISION)(BEAKER) (test code = 3438) Received comment: User comments: Slide comments:[id number] 12:58:00 Test Item Value Reference Range Interpretation Comments LIPASE (BEAKER) (test code = 749) 153 U/L 8-78 H BASIC METABOLIC [id number] 12:58:00 Test Item Value Reference Range Interpretation Comments SODIUM (BEAKER) 142 meq/L 136-145 (test code = 381) POTASSIUM (BEAKER) 4.1 meq/L 3.5-5.1 (test code = 379) CHLORIDE (BEAKER) 110 meq/L 98-107 H (test code = 382) CO2 (BEAKER) (test 23 meq/L 22-29 code = 355) BLOOD UREA NITROGEN 54 mg/dL 7-21 H (BEAKER) (test code = 354) CREATININE (BEAKER) 1.75 mg/dL 0.57-1.25 H (test code = 358) GLUCOSE RANDOM 101 mg/dL 70-105 (BEAKER) (test code = 652) CALCIUM (BEAKER) 8.3 mg/dL 8.4-10.2 L (test code = 697) EGFR (BEAKER) (test 40 mL/min/1.73 ESTIMA ROBERTA GFR IS code = 1092) sq m NOT ACCURATE CREATININE CLEARANCE IN PREDICTING GLOMERULAR FILTRATION RATE . ESTIMATED GFR I S NOT APPLICABLE FOR DIALYSIS PATIEN TS. HEPATIC FUNCTION [id number] 12:58:00 Test Item Value Reference Range Interpretation Comments TOTAL PROTEIN (BEAKER) (test code = 4.9 gm/dL 6.0-8.3 L 770) ALBUMIN (BEAKER) (test code = 1145) 2.9 g/dL 3.5-5.0 L BILIRUBIN TOTAL (BEAKER) (test code 1.1 mg/dL 0.2-1.2 = 377) BILIRUBIN DIRECT (BEAKER) (test 0.6 mg/dL 0.1-0.5 H code = 706) ALKALINE PHOSPHATASE (BEAKER) (test 304 U/L 40-150 H code = 346) AST (SGOT) (BEAKER) (test code = 44 U/L 5-34 H 353) ALT (SGPT) (BEAKER) (test code = 37 U/L 6-55 347) [id number] 12:49:00 Test Item Value Reference Range Interpretation Comments PROTIME (BEAKER) (test code = 16.0 seconds 11.9-14.2 H 759) INR (BEAKER) (test code = 370) 1.4 <=5.9 PARTIAL THROMBOPLASTIN TIME 36.7 seconds 22.5-36.0 H (BEAKER) (test code = 760) Effective 11/26/2018: PT Reference Range ChangeNew: 11.9-14.2 Previous: 11.7- 14.7RECOMMENDED COUMADIN/WARFARIN INR THERAPY RANGESSTANDARD DOSE: 2.0-3.0 Includes: PROPHYLAXIS for venous thrombosis, systemic embolization; TREATMENT for venous thrombosis and/or pulmonary embolus.HIGH RISK: Target INR is2.5-3.5 for patients wiht mechanical heart valves.BLOOD [id number] 12:00:00 Test Item Value Reference Range Interpretation Comments CULTURE (BEAKER) (test No growth in 5 days code = 1095) BLOOD [id number] 12:00:00 Test Item Value Reference Range Interpretation Comments CULTURE (BEAKER) (test No growth in 5 days code = 1095) STOOL CULTURE + SHIGA [id number] 15:15:00 Test Item Value Reference Range Interpretation Comments CULTURE (BEAKER) No Salmonella, Shigella (test code = 1095) or Campylobacter isolated TACROLIMUS [id number] 09:27:00 Test Item Value Reference Range Interpretation Comments TACROLIMUS BLOOD (BEAKER) (test 9.5 ng/mL 10.0-20.0 L code = 657) CBC W/PLT COUNT & AUTO [id number] 08:36:00 Test Item Value Reference Range Interpretation Comments WHITE BLOOD CELL COUNT (BEAKER) 4.8 K/ L 3.5-10.5 (test code = 775) RED BLOOD CELL COUNT (BEAKER) 3.13 M/ L 4.63-6.08 L (test code = 761) HEMOGLOBIN (BEAKER) (test code = 9.3 GM/DL 13.7-17.5 L 410) HEMATOCRIT (BEAKER) (test code = 30.9 % 40.1-51.0 L 411) MEAN CORPUSCULAR VOLUME (BEAKER) 98.7 fL 79.0-92.2 H (test code = 753) MEAN CORPUSCULAR HEMOGLOBIN 29.7 pg 25.7-32.2 (BEAKER) (test code = 751) MEAN CORPUSCULAR HEMOGLOBIN CONC 30.1 GM/DL 32.3-36.5 L (BEAKER) (test code = 752) RED CELL DISTRIBUTION WIDTH 16.8 % 11.6-14.4 H (BEAKER) (test code = 412) PLATELET COUNT (BEAKER) (test code 43 K/CU MM 150-450 L = 756) MEAN PLATELET VOLUME (BEAKER) 13.0 fL 9.4-12.4 H (test code = 754) NUCLEATED RED BLOOD CELLS (BEAKER) 1 /100 WBC 0-0 H (test code = 413) (CELLAVISION MANUAL DIFF)[id number] 08:36:00 Test Item Value Reference Range Interpretation Comments NEUTROPHILS - REL 69 % (CELLAVISION)(BEAKER) (test code = 2816) LYMPHOCYTES - REL 15 % (CELLAVISION)(BEAKER) (test code = 2817) MONOCYTES - REL 3 % (CELLAVISION)(BEAKER) (test code = 2818) EOSINOPHILS - REL 1 % (CELLAVISION)(BEAKER) (test code = 2819) BASOPHILS - REL 1 % (CELLAVISION)(BEAKER) (test code = 2820) BANDS - REL (CELLAVISION)(BEAKER) 11 % 0-10 H (test code = 2826) NEUTROPHILS - ABS 3.31 K/ul 1.78-5.38 (CELLAVISION)(BEAKER) (test code = 2830) LYMPHOCYTES - ABS 0.72 K/ul 1.32-3.57 L (CELLAVISION)(BEAKER) (test code = 2831) MONOCYTES - ABS 0.14 K/uL 0.30-0.82 L (CELLAVISION)(BEAKER) (test code = 2832) EOSINOPHILS - ABS 0.05 K/uL 0.04-0.54 (CELLAVISION)(BEAKER) (test code = 2834) BASOPHILS - ABS 0.05 K/uL 0.01-0.08 (CELLAVISION)(BEAKER) (test code = 2835) BANDS - ABS (CELLAVISION)(BEAKER) 0.53 K/uL 0.00-0.80 (test code = 2840) TOTAL COUNTED (BEAKER) (test code 100 = 1351) MANUAL NRBC PER 100 CELLS 4 /100 WBC 0-0 H (BEAKER) (test code = 1353) WBC MORPHOLOGY (BEAKER) (test Normal code = 487) PLT MORPHOLOGY (BEAKER) (test Normal code = 486) POLYCHROMATOPHILLIC RBCS(BEAKER) 1+ few (test code = 478) ANISOCYTOSIS (BEAKER) (test code 1+ few = 961) MACROCYTES (BEAKER) (test code = 1+ few 964) POIKILOCYTES (BEAKER) (test code 3+ many = 966) ELLIPTOCYTES (BEAKER) (test code 2+ moderate = 962) MICKEY CELLS (BEAKER) (test code = 2+ moderate 474) ARTIFACT (CELLAVISION)(BEAKER) Present (test code = 3432) PLATELET CONCENTRATION Decreased (CELLAVISION)(BEAKER) (test code = 3438) Received comment: User comments: Slide comments:[id number] 07:02:00 Test Item Value Reference Range Interpretation Comments PHOSPHORUS (BEAKER) (test code = 2.7 mg/dL 2.3-4.7 604) [id number] 07:02:00 Test Item Value Reference Range Interpretation Comments MAGNESIUM (BEAKER) (test code = 1.7 mg/dL 1.6-2.6 627) BASIC METABOLIC [id number] 07:02:00 Test Item Value Reference Range Interpretation Comments SODIUM (BEAKER) 138 meq/L 136-145 (test code = 381) POTASSIUM (BEAKER) 4.3 meq/L 3.5-5.1 (test code = 379) CHLORIDE (BEAKER) 106 meq/L 98-107 (test code = 382) CO2 (BEAKER) (test 22 meq/L 22-29 code = 355) BLOOD UREA NITROGEN 51 mg/dL 7-21 H (BEAKER) (test code = 354) CREATININE (BEAKER) 2.07 mg/dL 0.57-1.25 H (test code = 358) GLUCOSE RANDOM 216 mg/dL 70-105 H (BEAKER) (test code = 652) CALCIUM (BEAKER) 8.5 mg/dL 8.4-10.2 (test code = 697) EGFR (BEAKER) (test 33 mL/min/1.73 ESTIMA ROBERTA GFR IS code = 1092) sq m NOT ACCURATE CREATININE CLEARANCE IN PREDICTING GLOMERULAR FILTRATION RATE . ESTIMATED GFR I S NOT APPLICABLE FOR DIALYSIS PATIEN TS. HEPATIC FUNCTION [id number] 07:02:00 Test Item Value Reference Range Interpretation Comments TOTAL PROTEIN (BEAKER) (test code = 5.4 gm/dL 6.0-8.3 L 770) ALBUMIN (BEAKER) (test code = 1145) 3.1 g/dL 3.5-5.0 L BILIRUBIN TOTAL (BEAKER) (test code 1.2 mg/dL 0.2-1.2 = 377) BILIRUBIN DIRECT (BEAKER) (test 0.7 mg/dL 0.1-0.5 H code = 706) ALKALINE PHOSPHATASE (BEAKER) (test 306 U/L 40-150 H code = 346) AST (SGOT) (BEAKER) (test code = 32 U/L 5-34 353) ALT (SGPT) (BEAKER) (test code = 29 U/L 6-55 347) CALCIUM, [id number] 06:41:00 Test Item Value Reference Range Interpretation Comments CALCIUM IONIZED (BEAKER) (test 1.10 mmol/L 1.12-1.27 L code = 698) PH, BLOOD (BEAKER) (test code = 7.41 1810) SHIGA TOXIN [id number] 13:55:00 Test Item Value Reference Range Interpretation Comments SHIGA TOXIN 1 (BEAKER) (test Not detected Not detected code = 2177) SHIGA TOXIN 2 (BEAKER) (test Not detected Not detected code = 2179) CBC W/PLT COUNT & AUTO [id number] 13:00:00 Test Item Value Reference Range Interpretation Comments WHITE BLOOD CELL COUNT (BEAKER) 2.3 K/ L 3.5-10.5 L (test code = 775) RED BLOOD CELL COUNT (BEAKER) 2.70 M/ L 4.63-6.08 L (test code = 761) HEMOGLOBIN (BEAKER) (test code = 8.0 GM/DL 13.7-17.5 L 410) HEMATOCRIT (BEAKER) (test code = 25.7 % 40.1-51.0 L 411) MEAN CORPUSCULAR VOLUME (BEAKER) 95.2 fL 79.0-92.2 H (test code = 753) MEAN CORPUSCULAR HEMOGLOBIN 29.6 pg 25.7-32.2 (BEAKER) (test code = 751) MEAN CORPUSCULAR HEMOGLOBIN CONC 31.1 GM/DL 32.3-36.5 L (BEAKER) (test code = 752) RED CELL DISTRIBUTION WIDTH 17.1 % 11.6-14.4 H (BEAKER) (test code = 412) PLATELET COUNT (BEAKER) (test code 36 K/CU MM 150-450 L = 756) MEAN PLATELET VOLUME (BEAKER) 12.0 fL 9.4-12.4 (test code = 754) NUCLEATED RED BLOOD CELLS (BEAKER) 0 /100 WBC 0-0 (test code = 413) (CELLAVISION MANUAL DIFF)[id number] 13:00:00 Test Item Value Reference Range Interpretation Comments NEUTROPHILS - REL 68 % (CELLAVISION)(BEAKER) (test code = 2816) LYMPHOCYTES - REL 12 % (CELLAVISION)(BEAKER) (test code = 2817) MONOCYTES - REL 14 % (CELLAVISION)(BEAKER) (test code = 2818) EOSINOPHILS - REL 3 % (CELLAVISION)(BEAKER) (test code = 2819) METAMYELOCYTES - REL 2 % 0-0 H (CELLAVISION)(BEAKER) (test code = 2821) BANDS - REL (CELLAVISION)(BEAKER) 1 % 0-10 (test code = 2826) NEUTROPHILS - ABS 1.56 K/ul 1.78-5.38 L (CELLAVISION)(BEAKER) (test code = 2830) LYMPHOCYTES - ABS 0.28 K/ul 1.32-3.57 L (CELLAVISION)(BEAKER) (test code = 2831) MONOCYTES - ABS 0.32 K/uL 0.30-0.82 (CELLAVISION)(BEAKER) (test code = 2832) EOSINOPHILS - ABS 0.07 K/uL 0.04-0.54 (CELLAVISION)(BEAKER) (test code = 2834) METAMYELOCYTES - ABS 0.05 K/uL 0.00-0.00 H (CELLAVISION)(BEAKER) (test code = 2836) BANDS - ABS (CELLAVISION)(BEAKER) 0.02 K/uL 0.00-0.80 (test code = 2840) TOTAL COUNTED (BEAKER) (test code = 100 1351) WBC MORPHOLOGY (BEAKER) (test code Normal = 487) PLT MORPHOLOGY (BEAKER) (test code Normal = 486) POLYCHROMATOPHILLIC RBCS(BEAKER) 1+ few (test code = 478) HYPOCHROMIA (BEAKER) (test code = 1+ few 963) ANISOCYTOSIS (BEAKER) (test code = 1+ few 961) MACROCYTES (BEAKER) (test code = 1+ few 964) POIKILOCYTES (BEAKER) (test code = 1+ few 966) SCHISTOCYTES (BEAKER) (test code = 1+ few 765) ELLIPTOCYTES (BEAKER) (test code = 1+ few 962) OVALOCYTES (BEAKER) (test code = 1+ few 477) TEAR DROP CELLS (BEAKER) (test code 1+ few = 481) Wbc differential done manuallyTACROLIMUS [id number] 10:40:00 Test Item Value Reference Range Interpretation Comments TACROLIMUS BLOOD (BEAKER) (test 3.0 ng/mL 10.0-20.0 L code = 657) STOOL PATH [id number] 10:16:00 Test Item Value Reference Range Interpretation Comments PATHOGEN EXAM CHARGED (BEAKER) (test Done code = 2381) CALCIUM, [id number] 07:43:00 Test Item Value Reference Range Interpretation Comments CALCIUM IONIZED (BEAKER) (test 1.14 mmol/L 1.12-1.27 code = 698) PH, BLOOD (BEAKER) (test code = 7.42 1810) [id number] 06:35:00 Test Item Value Reference Range Interpretation Comments PHOSPHORUS (BEAKER) (test code = 2.4 mg/dL 2.3-4.7 604) [id number] 06:35:00 Test Item Value Reference Range Interpretation Comments MAGNESIUM (BEAKER) (test code = 1.6 mg/dL 1.6-2.6 627) BASIC METABOLIC [id number] 06:35:00 Test Item Value Reference Range Interpretation Comments SODIUM (BEAKER) 141 meq/L 136-145 (test code = 381) POTASSIUM (BEAKER) 3.4 meq/L 3.5-5.1 L (test code = 379) CHLORIDE (BEAKER) 109 meq/L 98-107 H (test code = 382) CO2 (BEAKER) (test 24 meq/L 22-29 code = 355) BLOOD UREA NITROGEN 45 mg/dL 7-21 H (BEAKER) (test code = 354) CREATININE (BEAKER) 1.74 mg/dL 0.57-1.25 H (test code = 358) GLUCOSE RANDOM 86 mg/dL 70-105 (BEAKER) (test code = 652) CALCIUM (BEAKER) 8.6 mg/dL 8.4-10.2 (test code = 697) EGFR (BEAKER) (test 40 mL/min/1.73 ESTIMA ROBERTA GFR IS code = 1092) sq m NOT ACCURATE CREATININE CLEARANCE IN PREDICTING GLOMERULAR FILTRATION RATE . ESTIMATED GFR I S NOT APPLICABLE FOR DIALYSIS PATIEN TS. HEPATIC FUNCTION [id number] 06:35:00 Test Item Value Reference Range Interpretation Comments TOTAL PROTEIN (BEAKER) (test code = 4.6 gm/dL 6.0-8.3 L 770) ALBUMIN (BEAKER) (test code = 1145) 2.9 g/dL 3.5-5.0 L BILIRUBIN TOTAL (BEAKER) (test code 1.3 mg/dL 0.2-1.2 H = 377) BILIRUBIN DIRECT (BEAKER) (test 0.8 mg/dL 0.1-0.5 H code = 706) ALKALINE PHOSPHATASE (BEAKER) (test 224 U/L 40-150 H code = 346) AST (SGOT) (BEAKER) (test code = 36 U/L 5-34 H 353) ALT (SGPT) (BEAKER) (test code = 30 U/L 6-55 347) RESPIRATORY PANEL [id number] 14:16:00 Test Item Value Reference Range Interpretation Comments HUMAN METAPNEUMOVIRUS Not detected Not detected, (BEAKER) (test code = 2683) Equivocal RHINOVIRUS (BEAKER) (test Not detected Not detected, code = 2684) Equivocal INFLUENZA A (BEAKER) (test Not detected Not detected, code = 2685) Equivocal INFLUENZA A (NO SUBTYPE) (test code = 3606) INFLUENZA A SUBTYPE H1 (BEAKER) (test code = 2686) INFLUENZA A SUBTYPE H3 (BEAKER) (test code = 2687) INFLUENZA A SUBTYPE H1-2009 (BEAKER) (test code = 3198) INFLUENZA B (BEAKER) (test Not detected Not detected, code = 2688) Equivocal RESPIRATORY SYNCYTIAL VIRUS Not detected Not detected, (BEAKER) (test code = 3199) Equivocal PARAINFLUENZA VIRUS 1 Not detected Not detected, (BEAKER) (test code = 2691) Equivocal PARAINFLUENZA VIRUS 2 Not detected Not detected, (BEAKER) (test code = 2692) Equivocal PARAINFLUENZA VIRUS 3 Not detected Not detected, (BEAKER) (test code = 2693) Equivocal PARAINFLUENZA VIRUS 4 Not detected Not detected, (BEAKER) (test code = 3200) Equivocal ADENOVIRUS (BEAKER) (test Not detected Not detected, code = 2694) Equivocal CORONAVIRUS 229E (BEAKER) Not detected Not detected, (test code = 3201) Equivocal CORONAVIRUS HKU1 (BEAKER) Not detected Not detected, (test code = 3202) Equivocal CORONAVIRUS NL63 (BEAKER) Not detected Not detected, (test code = 3203) Equivocal CORONAVIRUS OC43 (BEAKER) Not detected Not detected, (test code = 3204) Equivocal BORDETELLA PERTUSSIS Not detected Not detected, (BEAKER) (test code = 3205) Equivocal CHLAMYDOPHILA PNEUMONIAE Not detected Not detected, (BEAKER) (test code = 3206) Equivocal MYCOPLASMA PNEUMONIAE Not detected Not detected, (BEAKER) (test code = 3207) Equivocal Other viruses and bacteria not targeted [...] [facility] using the [employer] Respiratory Panel. It is FDA cleared and has been verified and approved by the [facility] Molecular Diagnostics Laboratory for clinical use on nasopharyngeal swab specimens.The performance of the FilmArrayRP has not been established in individuals who received influenza vaccine. Recent administration ofa nasal influenza vaccine may cause false positive results for Influenza A and/orInfluenza B.TACROLIMUS [id number] 11:08:00 Test Item Value Reference Range Interpretation Comments TACROLIMUS BLOOD (BEAKER) (test 2.8 ng/mL 10.0-20.0 L code = 657) C. DIFFICILE GDH [id number] 10:53:00 Test Item Value Reference Range Interpretation Comments CDT TOXIN (test code Negative Negative = [id number]) CDT GDH ANTIGEN (test Negative Negative No ind ication of code = [id number]) Clostridi um difficile infection and n o colonization. Discontinue ent phyllis isolation and t herapy. Testing performed by [employer] Rapid Cassette Assay. For GDH, published sensitivity of the assay is 98.7% compared to cytotoxicity testing. For Toxin AB, published sensitivity is 87.8% and specificity 99.4% compared to cytotoxicity testing.Verification of kit performance was done by the [facility] Microbiology Lab prior to clinical use.BASIC METABOLIC [id number] 10:21:00 Test Item Value Reference Range Interpretation Comments SODIUM (BEAKER) 139 meq/L 136-145 (test code = 381) POTASSIUM (BEAKER) 3.3 meq/L 3.5-5.1 L (test code = 379) CHLORIDE (BEAKER) 106 meq/L 98-107 (test code = 382) CO2 (BEAKER) (test 22 meq/L 22-29 code = 355) BLOOD UREA NITROGEN 53 mg/dL 7-21 H (BEAKER) (test code = 354) CREATININE (BEAKER) 2.05 mg/dL 0.57-1.25 H (test code = 358) GLUCOSE RANDOM 109 mg/dL 70-105 H (BEAKER) (test code = 652) CALCIUM (BEAKER) 8.4 mg/dL 8.4-10.2 (test code = 697) EGFR (BEAKER) (test 33 mL/min/1.73 ESTIMA ROBERTA GFR IS code = 1092) sq m NOT ACCURATE CREATININE CLEARANCE IN PREDICTING GLOMERULAR FILTRATION RATE . ESTIMATED GFR I S NOT APPLICABLE FOR DIALYSIS PATIEN TS. PERIPHERAL BLOOD SMEAR - PATHOLOGIST [id number] 09:58:00 Test Item Value Reference Range Interpretation Comments PERIPHERAL SMR REVIEW Rare atypical (BEAKER) (test code = lymphocytes, favore 7150) reactive. No circulating blasts. Clinical follow up recommended. [id number] Macario Walker, (BEAKER) (test code = M.D.(electronic 5083) signature) CBC W/PLT COUNT & AUTO [id number] 09:36:00 Test Item Value Reference Range Interpretation Comments WHITE BLOOD CELL COUNT (BEAKER) 1.2 K/ L 3.5-10.5 L (test code = 775) RED BLOOD CELL COUNT (BEAKER) 2.46 M/ L 4.63-6.08 L (test code = 761) HEMOGLOBIN (BEAKER) (test code = 7.3 GM/DL 13.7-17.5 L 410) HEMATOCRIT (BEAKER) (test code = 23.0 % 40.1-51.0 L 411) MEAN CORPUSCULAR VOLUME (BEAKER) 93.5 fL 79.0-92.2 H (test code = 753) MEAN CORPUSCULAR HEMOGLOBIN 29.7 pg 25.7-32.2 (BEAKER) (test code = 751) MEAN CORPUSCULAR HEMOGLOBIN CONC 31.7 GM/DL 32.3-36.5 L (BEAKER) (test code = 752) RED CELL DISTRIBUTION WIDTH 17.0 % 11.6-14.4 H (BEAKER) (test code = 412) PLATELET COUNT (BEAKER) (test code 36 K/CU MM 150-450 L = 756) MEAN PLATELET VOLUME (BEAKER) 12.3 fL 9.4-12.4 (test code = 754) NUCLEATED RED BLOOD CELLS (BEAKER) 0 /100 WBC 0-0 (test code = 413) (CELLAVISION MANUAL DIFF)2019-04-23 09:36:00 Test Item Value Reference Range Interpretation Comments NEUTROPHILS - REL 64 % (CELLAVISION)(BEAKER) (test code = 2816) LYMPHOCYTES - REL 13 % (CELLAVISION)(BEAKER) (test code = 2817) MONOCYTES - REL 10 % (CELLAVISION)(BEAKER) (test code = 2818) EOSINOPHILS - REL 4 % (CELLAVISION)(BEAKER) (test code = 2819) BANDS - REL (CELLAVISION)(BEAKER) 9 % 0-10 (test code = 2826) ATYPICAL LYMPHOCYTES - REL 1 % 0-0 H (CELLAVISION)(BEAKER) (test code = 2829) NEUTROPHILS - ABS 0.77 K/ul 1.78-5.38 L (CELLAVISION)(BEAKER) (test code = 2830) LYMPHOCYTES - ABS 0.16 K/ul 1.32-3.57 L (CELLAVISION)(BEAKER) (test code = 2831) MONOCYTES - ABS 0.12 K/uL 0.30-0.82 L (CELLAVISION)(BEAKER) (test code = 2832) EOSINOPHILS - ABS 0.05 K/uL 0.04-0.54 (CELLAVISION)(BEAKER) (test code = 2834) BANDS - ABS (CELLAVISION)(BEAKER) 0.11 K/uL 0.00-0.80 (test code = 2840) ATYPICAL LYMPHOCYTES - ABS 0.01 K/uL 0.00-0.00 H (CELLAVISION)(BEAKER) (test code = 2858) TOTAL COUNTED (BEAKER) (test code = 100 1351) WBC MORPHOLOGY (BEAKER) (test code Normal = 487) PLT MORPHOLOGY (BEAKER) (test code Normal = 486) POLYCHROMATOPHILLIC RBCS(BEAKER) 1+ few (test code = 478) HYPOCHROMIA (BEAKER) (test code = 1+ few 963) SCHISTOCYTES (BEAKER) (test code = 1+ few 765) OVALOCYTES (BEAKER) (test code = 1+ few 477) TEAR DROP CELLS (BEAKER) (test code 1+ few = 481) MICKEY CELLS (BEAKER) (test code = 1+ few 474) ARTIFACT (CELLAVISION)(BEAKER) Present (test code = 3432) PLATELET CONCENTRATION Decreased (CELLAVISION)(BEAKER) (test code = 3438) Received comment: User comments: Slide comments:POCT-GLUCOSE [id number] 09:31:00 Test Item Value Reference Range Interpretation Comments POC-GLUCOSE METER 103 mg/dL 70-110 : TESTED A T [facility] 6720 (BEAKER) (test code = [place], 1538) [address]: Le[employer]aper/Techni demetrice ID = [id number] for BG SAUC[place]O IMMUNOGLOBULIN G (IGG)2019-04-23 07:17:00 Test Item Value Reference Range Interpretation Comments IMMUNOGLOBULIN G (IGG) (BEAKER) 291 mg/dL 540-1,822 L (test code = 427) CALCIUM, [id number] 07:14:00 Test Item Value Reference Range Interpretation Comments CALCIUM IONIZED (BEAKER) (test 1.10 mmol/L 1.12-1.27 L code = 698) PH, BLOOD (BEAKER) (test code = 7.43 1810) [id number] 07:11:00 Test Item Value Reference Range Interpretation Comments CORTISOL, TOTAL (BEAKER) (test code 3.7 ug/dL 3.7-19.4 = 2755) BLOOD GAS, [id number] 07:09:00 Test Item Value Reference Range Interpretation Comments PH VENOUS (BEAKER) (test code = 7.43 7.32-7.42 H 701) PCO2 VENOUS (BEAKER) (test code = 35 mmHg 41-51 L 755) PO2 VENOUS (BEAKER) (test code = 62 mmHg 25-40 H 702) O2 SATURATION VENOUS (BEAKER) 92.9 % 40.0-70.0 H (test code = 703) HCO3 VENOUS (BEAKER) (test code = 23 mmol/L 21-29 705) BASE EXCESS VENOUS (BEAKER) (test -1.2 mmol/L -2.0-3.0 code = 704) PATIENT TEMPERATURE (BEAKER) 36.6 C (test code = 1818) FIO2 (BEAKER) (test code = 1819) 21.0 % [id number] 06:54:00 Test Item Value Reference Range Interpretation Comments PHOSPHORUS (BEAKER) (test code = 3.1 mg/dL 2.3-4.7 604) [id number] 06:54:00 Test Item Value Reference Range Interpretation Comments MAGNESIUM (BEAKER) (test code = 1.7 mg/dL 1.6-2.6 627) BASIC METABOLIC [id number] 06:54:00 Test Item Value Reference Range Interpretation Comments SODIUM (BEAKER) 139 meq/L 136-145 (test code = 381) POTASSIUM (BEAKER) 3.8 meq/L 3.5-5.1 (test code = 379) CHLORIDE (BEAKER) 109 meq/L 98-107 H (test code = 382) CO2 (BEAKER) (test 22 meq/L 22-29 code = 355) BLOOD UREA NITROGEN 53 mg/dL 7-21 H (BEAKER) (test code = 354) CREATININE (BEAKER) 1.97 mg/dL 0.57-1.25 H (test code = 358) GLUCOSE RANDOM 94 mg/dL 70-105 (BEAKER) (test code = 652) CALCIUM (BEAKER) 8.0 mg/dL 8.4-10.2 L (test code = 697) EGFR (BEAKER) (test 35 mL/min/1.73 ESTIMA ROBERTA GFR IS code = 1092) sq m NOT ACCURATE CREATININE CLEARANCE IN PREDICTING GLOMERULAR FILTRATION RATE . ESTIMATED GFR I S NOT APPLICABLE FOR DIALYSIS PATIEN TS. HEPATIC FUNCTION [id number] 06:54:00 Test Item Value Reference Range Interpretation Comments TOTAL PROTEIN (BEAKER) (test code = 4.4 gm/dL 6.0-8.3 L 770) ALBUMIN (BEAKER) (test code = 1145) 2.7 g/dL 3.5-5.0 L BILIRUBIN TOTAL (BEAKER) (test code 1.3 mg/dL 0.2-1.2 H = 377) BILIRUBIN DIRECT (BEAKER) (test 0.9 mg/dL 0.1-0.5 H code = 706) ALKALINE PHOSPHATASE (BEAKER) (test 148 U/L 40-150 code = 346) AST (SGOT) (BEAKER) (test code = 28 U/L 5-34 353) ALT (SGPT) (BEAKER) (test code = 28 U/L 6-55 347) VANCOMYCIN LEVEL, [id number] 06:48:00 Test Item Value Reference Range Interpretation Comments VANCOMYCIN RANDOM (BEAKER) (test 6.0 ug/mL code = 523) Reference Range: No NormalsLACTIC ACID, [id number] 06:42:00 Test Item Value Reference Range Interpretation Comments LACTATE BLOOD ARTERIAL (2) 2.1 mmol/L 0.5-2.2 (BEAKER) (test code = 2874) FECAL [id number] 01:59:00 Test Item Value Reference Range Interpretation Comments FECAL LEUKOCYTES No fecal leukocytes No fecal leukocytes (BEAKER) (test code = seen seen 992) BLOOD GAS, [id number] 23:40:00 Test Item Value Reference Range Interpretation Comments PH VENOUS (BEAKER) (test code = 7.39 7.32-7.42 701) PCO2 VENOUS (BEAKER) (test code = 34 mmHg 41-51 L 755) PO2 VENOUS (BEAKER) (test code = 52 mmHg 25-40 H 702) O2 SATURATION VENOUS (BEAKER) 88.0 % 40.0-70.0 H (test code = 703) HCO3 VENOUS (BEAKER) (test code = 21 mmol/L 21-29 705) BASE EXCESS VENOUS (BEAKER) (test -4.0 mmol/L -2.0-3.0 L code = 704) PATIENT TEMPERATURE (BEAKER) 36.6 C (test code = 1818) FIO2 (BEAKER) (test code = 1819) 21.0 % LEGIONELLA ANTIGEN, [id number] 19:38:00 Test Item Value Reference Range Interpretation Comments L. PNEUMOPHILA Negative - see Negative fo r L. SEROGP 1 UR AG comment pneumophila (BEAKER) (test code serogrou p 1 antigen, = 1156) suggesting no r ecent or current infe ction with this serog roup. Legionellosis c annot be ruled out si nce other serogroup s and species may cau se disease. STREP PNEUMONIAE [id number] 19:38:00 Test Item Value Reference Range Interpretation Comments STREP PNEUMONIAE Presumptive negative Presumptive negative ANTIGEN (BEAKER) for pneumococcal for pneumococcal (test code = 1615) pneumonia - see pneumonia - see comment commen Presumptive negative for pneumococcal pneumonia, suggesting no current or recent pneumococcal infection. Infection due to S. pneumoniae cannot be ruled out since the antigen present in the sample may be below the detection limit of the test.BASIC METABOLIC [id number] 19:14:00 Test Item Value Reference Range Interpretation Comments SODIUM (BEAKER) 138 meq/L 136-145 (test code = 381) POTASSIUM (BEAKER) 5.0 meq/L 3.5-5.1 (test code = 379) CHLORIDE (BEAKER) 112 meq/L 98-107 H (test code = 382) CO2 (BEAKER) (test 19 meq/L 22-29 L code = 355) BLOOD UREA NITROGEN 53 mg/dL 7-21 H (BEAKER) (test code = 354) CREATININE (BEAKER) 2.18 mg/dL 0.57-1.25 H (test code = 358) GLUCOSE RANDOM 125 mg/dL 70-105 H (BEAKER) (test code = 652) CALCIUM (BEAKER) 8.1 mg/dL 8.4-10.2 L (test code = 697) EGFR (BEAKER) (test 31 mL/min/1.73 ESTIMA ROBERTA GFR IS code = 1092) sq m NOT ACCURATE CREATININE CLEARANCE IN PREDICTING GLOMERULAR FILTRATION RATE . ESTIMATED GFR I S NOT APPLICABLE FOR DIALYSIS PATIEN TS. [id number] 19:13:00 Test Item Value Reference Range Interpretation Comments HAPTOGLOBIN (BEAKER) (test code = 63 mg/dL 14-258 366) LACTIC ACID, [id number] 19:11:00 Test Item Value Reference Range Interpretation Comments LACTATE BLOOD VENOUS (2) (BEAKER) 2.0 mmol/L 0.5-2.2 (test code = 2872) LACTATE DEHYDROGENASE (LDH)2019-04-22 18:26:00 Test Item Value Reference Range Interpretation Comments LACTATE DEHYDROGENASE (BEAKER) (test 199 U/L 125-220 code = 635) U/S, ABDOMINAL, [id number] 16:07:00Referring: Dr. Yary Fernando for exam:->abnormal LFTs [...] vein diameter is 1.3 cm. Multiple gallstones are seen with the gallbladder wall thickened measuring 8 mm. No gallbladder distention is seen. There juan m small amount of pericholecystic fluid. No sonographic Baltazar sign is present. The spleen measures 16.4 cm, enlarged. The pancreas is only partially visualized. No ascites is present. The right kidney measures 8.8 cm and left kidney measures 11.1 [...] dated December 27, 2017.4. Left renal cyst. Signed: Georgi Mancilla MDReport Verified Date/Time: 04/22/2019 16:07:26 Reading Location:[address] Radiology Reading Room CMV PCR, [id number] 15:18:00 Test Item Value Reference Range Interpretation Comments CMV VIRAL LOAD - Negative or below the NEGATIVE (BEAKER) (test linear range of the code = 2558) assay (<375 copies/mL) Cytomegalovirus (CMV) infection can [...] viral load canbe evaluated by identifying a 10-fold change, as well as assessing the CMV DNA viral load and the clinical context for each patient.The plasma CMV DNA viral load was detected using quantitative polymerase chain reaction and fluorescent monitoring of a specific hybridized probe. Genetic variation and ot her factors can affect the accuracy of nucleic acid testing. Therefore, the results should be interpreted in light of clinical data. A negative result may not exclude the presence of CMV disease.This test was developed and its performance characteristics determined by the [facility] Path ology Department, Section of Molecular Pathology. It has not been cleared or approved by the U.S. Food and Drug Administration (FDA), since FDA approval is not required for clinical use of the test. Validation was done as required by The Clinical Laboratory Improvement Amendments of 1988.EBV VIRAL [id number] 15:07:00 Test Item Value Reference Range Interpretation Comments EBV VIRAL LOAD - Negative or below the NEGATIVE (BEAKER) (test linear range of the code = 2559) assay (<500 copies/mL) This assay was performed by real-time PCR for the detection of the Elina-Joyner virus (EBV) gene EBNA-1. The test is composed of (1) DNA extraction from patient specimen, and (2) real-time PCR amplification and detection with GASF-1-kdltsrad primers and probes. A well-conserved region of the EBNA-1 gene is targeted, along with an internal control sequence used to confirm PCR amplification. Asymptomatic carriers and viral genetic variation, among other factors, can affect the accuracy of nucleic acid testing; therefore, results should be interpreted in light of clinical data.This test was developedand its performance characteristics determined by the [facility] Pathology Department, Section of Molecular Pathology. It has not been cleared or approved by the U.S. Food and Drug Administration (FDA), since FDA approval is not required for clinical use of the test. Validation was doneas required by The Clinical Laboratory Improvement Amendments of 1988.(CELLAVISION MANUAL DIFF) 2019-04-22 14:01:00 Test Item Value Reference Range Interpretation Comments NEUTROPHILS - REL 60 % (CELLAVISION)(BEAKER) (test code = 2816) LYMPHOCYTES - REL 7 % (CELLAVISION)(BEAKER) (test code = 2817) MONOCYTES - REL 10 % (CELLAVISION)(BEAKER) (test code = 2818) BASOPHILS - REL 1 % (CELLAVISION)(BEAKER) (test code = 2820) METAMYELOCYTES - REL 1 % 0-0 H (CELLAVISION)(BEAKER) (test code = 2821) BANDS - REL (CELLAVISION)(BEAKER) 19 % 0-10 H (test code = 2826) ATYPICAL LYMPHOCYTES - REL 1 % 0-0 H (CELLAVISION)(BEAKER) (test code = 2829) NEUTROPHILS - ABS 0.66 K/ul 1.78-5.38 L (CELLAVISION)(BEAKER) (test code = 2830) LYMPHOCYTES - ABS 0.08 K/ul 1.32-3.57 L (CELLAVISION)(BEAKER) (test code = 2831) MONOCYTES - ABS 0.11 K/uL 0.30-0.82 L (CELLAVISION)(BEAKER) (test code = 2832) BASOPHILS - ABS 0.01 K/uL 0.01-0.08 (CELLAVISION)(BEAKER) (test code = 2835) METAMYELOCYTES - ABS 0.01 K/uL 0.00-0.00 H (CELLAVISION)(BEAKER) (test code = 2836) BANDS - ABS (CELLAVISION)(BEAKER) 0.21 K/uL 0.00-0.80 (test code = 2840) ATYPICAL LYMPHOCYTES - ABS 0.01 K/uL 0.00-0.00 H (CELLAVISION)(BEAKER) (test code = 2858) TOTAL COUNTED (BEAKER) (test code 100 = 1351) GIANT PLATELETS (BEAKER) (test Present code = 313) PLASMA CELLS(BEAKER) (test code = Present 2151) POLYCHROMATOPHILLIC RBCS(BEAKER) 1+ few (test code = 478) HYPOCHROMIA (BEAKER) (test code = 1+ few 963) ANISOCYTOSIS (BEAKER) (test code 2+ moderate = 961) MICROCYTES (BEAKER) (test code = 2+ moderate 965) MACROCYTES (BEAKER) (test code = 1+ few 964) POIKILOCYTES (BEAKER) (test code 2+ moderate = 966) SCHISTOCYTES (BEAKER) (test code 1+ few = 765) ELLIPTOCYTES (BEAKER) (test code 2+ moderate = 962) MICKEY CELLS (BEAKER) (test code = 2+ moderate 474) ARTIFACT (CELLAVISION)(BEAKER) Present (test code = 3432) PLATELET CONCENTRATION Decreased (CELLAVISION)(BEAKER) (test code = 3438) Received comment: User comments: Slide comments:CBC W/PLT COUNT & AUTO [id number] 14:00:00 Test Item Value Reference Range Interpretation Comments WHITE BLOOD CELL COUNT (BEAKER) 1.1 K/ L 3.5-10.5 L (test code = 775) RED BLOOD CELL COUNT (BEAKER) 2.59 M/ L 4.63-6.08 L (test code = 761) HEMOGLOBIN (BEAKER) (test code = 7.8 GM/DL 13.7-17.5 L 410) HEMATOCRIT (BEAKER) (test code = 25.2 % 40.1-51.0 L 411) MEAN CORPUSCULAR VOLUME (BEAKER) 97.3 fL 79.0-92.2 H (test code = 753) MEAN CORPUSCULAR HEMOGLOBIN 30.1 pg 25.7-32.2 (BEAKER) (test code = 751) MEAN CORPUSCULAR HEMOGLOBIN CONC 31.0 GM/DL 32.3-36.5 L (BEAKER) (test code = 752) RED CELL DISTRIBUTION WIDTH 17.0 % 11.6-14.4 H (BEAKER) (test code = 412) PLATELET COUNT (BEAKER) (test code 36 K/CU MM 150-450 L = 756) MEAN PLATELET VOLUME (BEAKER) 12.6 fL 9.4-12.4 H (test code = 754) NUCLEATED RED BLOOD CELLS (BEAKER) 0 /100 WBC 0-0 (test code = 413) TROPONIN [id number] 13:53:00 Test Item Value Reference Range Interpretation Comments TROPONIN I (BEAKER) (test code = 397) < ng/mL 0.00-0.03 Troponin I (TnI) levels [...] acute neurological disease, and persistent tachyarrhythmia.BASIC METABOLIC [id number] 13:45:00 Test Item Value Reference Range Interpretation Comments SODIUM (BEAKER) 135 meq/L 136-145 L (test code = 381) POTASSIUM (BEAKER) 5.6 meq/L 3.5-5.1 H (test code = 379) CHLORIDE (BEAKER) 111 meq/L 98-107 H (test code = 382) CO2 (BEAKER) (test 14 meq/L 22-29 L code = 355) BLOOD UREA NITROGEN 51 mg/dL 7-21 H (BEAKER) (test code = 354) CREATININE (BEAKER) 2.13 mg/dL 0.57-1.25 H (test code = 358) GLUCOSE RANDOM 77 mg/dL 70-105 (BEAKER) (test code = 652) CALCIUM (BEAKER) 7.9 mg/dL 8.4-10.2 L (test code = 697) EGFR (BEAKER) (test 32 mL/min/1.73 ESTIMA ROBERTA GFR IS code = 1092) sq m NOT ACCURATE CREATININE CLEARANCE IN PREDICTING GLOMERULAR FILTRATION RATE . ESTIMATED GFR I S NOT APPLICABLE FOR DIALYSIS PATIEN TS. CHLORIDE, RANDOM [id number] 12:41:00 Test Item Value Reference Range Interpretation Comments CHLORIDE URINE (BEAKER) (test code = 45 meq/L 682) Reference Range: No NormalsCREATININE, RANDOM [id number] 12:41:00 Test Item Value Reference Range Interpretation Comments CREATININE URINE (BEAKER) (test 131.6 mg/dL code = 375) Reference Range: No NormalsPOTASSIUM, RANDOM [id number] 12:41:00 Test Item Value Reference Range Interpretation Comments POTASSIUM URINE (BEAKER) (test 68.5 meq/L code = 195) Reference Range: No NormalsSODIUM, RANDOM [id number] 12:41:00 Test Item Value Reference Range Interpretation Comments SODIUM URINE (BEAKER) (test code = 27 meq/L 243) Reference Range: No NormalsUREA NITROGEN, RANDOM [id number] 12:41:00 Test Item Value Reference Range Interpretation Comments UREA NITROGEN URINE (BEAKER) (test 732 mg/dL code = 538) Reference Range: No NormalsURINALYSIS W/ REFLEX URINE [id number] 11:59:00 Test Item Value Reference Range Interpretation Comments COLOR (BEAKER) (test code = 470) Yellow CLARITY (BEAKER) (test code = 469) Hazy SPECIFIC GRAVITY UA (BEAKER) (test 1.024 1.001-1.035 code = 468) PH UA (BEAKER) (test code = 467) 5.0 5.0-8.0 PROTEIN UA (BEAKER) (test code = 30 mg/dL Negative A 464) GLUCOSE UA (BEAKER) (test code = Negative Negative 365) KETONES UA (BEAKER) (test code = Trace Negative A 371) BILIRUBIN UA (BEAKER) (test code = Negative Negative 462) BLOOD UA (BEAKER) (test code = 461) Negative Negative NITRITE UA (BEAKER) (test code = Negative Negative 465) LEUKOCYTE ESTERASE UA (BEAKER) Trace Negative A (test code = 466) UROBILINOGEN UA (BEAKER) (test code 0.2 mg/dL 0.2-1.0 = 463) RBC UA (BEAKER) (test code = 519) 0 /HPF WBC UA (BEAKER) (test code = 520) 3 /HPF BACTERIA (BEAKER) (test code = 517) Rare MUCUS (BEAKER) (test code = 1574) Rare SQUAMOUS EPITHELIAL (BEAKER) (test 2 /HPF code = 516) HYALINE CASTS (BEAKER) (test code = 3 /LPF 514) GRANULAR CASTS (BEAKER) (test code 15 /LPF = 515) AMORPHOUS CRYSTALS (BEAKER) (test Rare code = 1584) SOURCE(BEAKER) (test code = 2795) OSMOLALITY, [id number] 11:59:00 Test Item Value Reference Range Interpretation Comments OSMOLALITY URINE (BEAKER) (test 536 mOsm/kg 40-1,400 code = 614) SPECIFIC GRAVITY, [id number] 11:52:00 Test Item Value Reference Range Interpretation Comments SPECIFIC GRAVITY UA (BEAKER) (test code 1.024 1.001-1.035 = 468) TACROLIMUS [id number] 11:08:00 Test Item Value Reference Range Interpretation Comments TACROLIMUS BLOOD (BEAKER) (test 3.9 ng/mL 10.0-20.0 L code = 657) [id number] 09:00:00 Test Item Value Reference Range Interpretation Comments PROCALCITONIN (BEAKER) (test code 64.50 ng/mL <0.05 HH = 3036) SEPSIS RISK (ng/mL)Low: 0.05-0.50Intermediate: 0.51-2.00High: >=2.01RAPID INFLUENZA A&B [id number] 07:45:00 Test Item Value Reference Range Interpretation Comments RAPID INFLUENZA A AG (BEAKER) Negative Negative, Inconclusive (test code = 1622) RAPID INFLUENZA B AG (BEAKER) Negative Negative, Inconclusive (test code = 1623) B-TYPE NATRIURETIC FACTOR (BNP)2019-04-22 07:27:00 Test Item Value Reference Range Interpretation Comments B-TYPE NATRIURETIC PEPTIDE 1132 pg/mL 0-100 H (BEAKER) (test code = 700) TROPONIN [id number] 07:27:00 Test Item Value Reference Range Interpretation Comments TROPONIN I (BEAKER) (test code = 0.05 ng/mL 0.00-0.03 H 397) Troponin I (TnI) levels must be interpreted [...] acute neurological disease, and persistent tachyarrhythmia.BASIC METABOLIC [id number] 07:21:00 Test Item Value Reference Range Interpretation Comments SODIUM (BEAKER) 135 meq/L 136-145 L (test code = 381) POTASSIUM (BEAKER) 5.4 meq/L 3.5-5.1 H (test code = 379) CHLORIDE (BEAKER) 112 meq/L 98-107 H (test code = 382) CO2 (BEAKER) (test 13 meq/L 22-29 L code = 355) BLOOD UREA NITROGEN 47 mg/dL 7-21 H (BEAKER) (test code = 354) CREATININE (BEAKER) 2.17 mg/dL 0.57-1.25 H (test code = 358) GLUCOSE RANDOM 67 mg/dL 70-105 L (BEAKER) (test code = 652) CALCIUM (BEAKER) 7.7 mg/dL 8.4-10.2 L (test code = 697) EGFR (BEAKER) (test 31 mL/min/1.73 ESTIMA ROBERTA GFR IS code = 1092) sq m NOT ACCURATE CREATININE CLEARANCE IN PREDICTING GLOMERULAR FILTRATION RATE . ESTIMATED GFR I S NOT APPLICABLE FOR DIALYSIS PATIEN TS. [id number] 07:20:00 Test Item Value Reference Range Interpretation Comments PHOSPHORUS (BEAKER) (test code = 4.7 mg/dL 2.3-4.7 604) [id number] 07:20:00 Test Item Value Reference Range Interpretation Comments MAGNESIUM (BEAKER) (test code = 1.5 mg/dL 1.6-2.6 L 627) HEPATIC FUNCTION [id number] 07:20:00 Test Item Value Reference Range Interpretation Comments TOTAL PROTEIN (BEAKER) (test code = 4.6 gm/dL 6.0-8.3 L 770) ALBUMIN (BEAKER) (test code = 1145) 3.0 g/dL 3.5-5.0 L BILIRUBIN TOTAL (BEAKER) (test code 2.2 mg/dL 0.2-1.2 H = 377) BILIRUBIN DIRECT (BEAKER) (test 1.6 mg/dL 0.1-0.5 H code = 706) ALKALINE PHOSPHATASE (BEAKER) (test 185 U/L 40-150 H code = 346) AST (SGOT) (BEAKER) (test code = 29 U/L 5-34 353) ALT (SGPT) (BEAKER) (test code = 33 U/L 6-55 347) [id number] 07:13:00 Test Item Value Reference Range Interpretation Comments PROTIME (BEAKER) (test code = 26.2 seconds 11.9-14.2 H 759) INR (BEAKER) (test code = 370) 2.6 <=5.9 PARTIAL THROMBOPLASTIN TIME 51.0 seconds 22.5-36.0 H (BEAKER) (test code = 760) Effective 11/26/2018: PT Reference Range ChangeNew: 11.9-14.2 Previous: 11.7- 14.7RECOMMENDED COUMADIN/WARFARIN INR THERAPY RANGESSTANDARD DOSE: 2.0-3.0 Includes: PROPHYLAXIS for venous thrombosis, systemic embolization; TREATMENT for venous thrombosis and/or pulmonary embolus.HIGH RISK: Target INR is2.5-3.5 for patients wiht mechanical heart valves.PROTHROMBIN [id number] 07:11:00 Test Item Value Reference Range Interpretation Comments PROTIME (BEAKER) (test code = 26.2 seconds 11.9-14.2 H 759) INR (BEAKER) (test code = 370) 2.6 <=5.9 Effective 11/26/2018: PT Reference Range ChangeNew: 11.9-14.2 Previous: 11.7- 14.7RECOMMENDED COUMADIN/WARFARIN INR THERAPY RANGESSTANDARD DOSE: 2.0-3.0 Includes: PROPHYLAXIS for venous thrombosis, systemic embolization; TREATMENT for venous thrombosis and/or pulmonary embolus.HIGH RISK: Target INR is2.5-3.5 for patients wiht mechanical heart valves.CALCIUM, [id number] 06:59:00 Test Item Value Reference Range Interpretation Comments CALCIUM IONIZED (BEAKER) (test 1.10 mmol/L 1.12-1.27 L code = 698) PH, BLOOD (BEAKER) (test code = 7.32 1810) BLOOD GAS, [id number] 06:58:00 Test Item Value Reference Range Interpretation Comments PH VENOUS (BEAKER) (test code = 7.32 7.32-7.42 701) PCO2 VENOUS (BEAKER) (test code 29 mmHg 41-51 L = 755) PO2 VENOUS (BEAKER) (test code = 49 mmHg 25-40 H 702) O2 SATURATION VENOUS (BEAKER) 82.1 % 40.0-70.0 H (test code = 703) HCO3 VENOUS (BEAKER) (test code 15 mmol/L 21-29 L = 705) BASE EXCESS VENOUS (BEAKER) -10.4 mmol/L -2.0-3.0 L (test code = 704) PATIENT TEMPERATURE (BEAKER) 37.0 C (test code = 1818) FIO2 (BEAKER) (test code = 1819) 21.0 % RAD, ABDOMEN/KUB, 1 VIEW [id number] 06:48:00Referring: Dr. Yary Fernando for exam:->abdominal painFINAL REPORT CLINICAL HISTORY: Abdominal pain COMPARISON: 12/31/2017 FINDINGS:Two supine views of the abdomen are submitted. The abdominal bowel gas pattern is nonspecific but lety ssly unobstructed. There is no focus of gas dilated large or small bowel. There is splenomegaly. No abnormal calcification is noted. There is no acute bony abnormality. Signed: Karissa Romero MDReportVerified Date/Time: 04/22/2019 06:48:47 RAD, CHEST, 1 VIEW, NON [id number] 06:46:00Referring: Dr. Yary Fernando for exam:->chest discomfortShould [facility]?->YesFINAL REPORT History: Chest discomfort. Comparison: 01/20/2019 Findings: [...] no pneumothorax or acute bony abnormality. Signed: Karissa Romero MDReport Verified Date/Time: 04/22/2019 06:46:48 BUN AND [id number] 12:39:00 Test Item Value Reference Range Interpretation Comments BLOOD UREA NITROGEN 29 mg/dL 7-21 H (BEAKER) (test code = 354) CREATININE (BEAKER) 1.40 mg/dL 0.57-1.25 H Specimen moderately (test code = 358) hemolyzed EGFR (BEAKER) (test 52 mL/min/1.73 ESTIMA ROBERTA GFR IS code = 1092) sq m NOT ACCURATE CREATININE CLEARANCE IN PREDICTING GLOMERULAR FILTRATION RATE . ESTIMATED GFR I S NOT APPLICABLE FOR DIALYSIS PATIEN TS. TISSUE [id number] 12:55:00Surgical Pathology Report Case: [id number] Authorizing Provider: Reg Serrano, Collected: 02/20/2019 Margret ARGUETA Ordering Location: [facility] Endoscopy Received: 02/23/2019 0843 Services Pathologist: Gemma Samayoa MD Specimens: A) -Polyp, Colon - Cecum, cecum polyp B) - Large Intestine, Colon - Right/Ascending, random right colon biopsy R/O microscopic colitis C) - Polyp, Colon - Right/Ascending, ascending colon polyp x 3 D) - Large Intestine, Colon - Left/Descending, random left colon biopsy R/O microscopic colitis A. COLON, CECUM POLYP, POLYPECTOMY- POLYPOID MUCOSAL FRAGMENTS WITHOUT ADENOMATOUS OR HYPERPLASTIC CHANGE- FOCAL ACUTE COLITIS, MILDB. COLON, RIGHT/ASCENDING, BIOPSY- NO EVIDENCE OF LYMPHOCYTIC OR COLLAGENOUS COLITIS- CD 138 DOESNOT HIGHLIGHT PLASMA CELLS IN LAMINA PROPRIA (SEE COMMENT)C. COLON, RIGHT/ASCENDING COLON POLYP, POLYPECTOMY- TUBULAR ADENOMA, TWO- ONE POLYPOID MUCOSAL FRAGMENT WITHOUT DIAGNOSTIC ALTERATIOND.COLON, LEFT/DESCENDING, BIOPSY- NO EVIDENCE OF LYMPHOCYTIC OR COLLAGENOUS COLITIS- MILD EDEMA IN LAMINA PROPRIA - CD 138 DOES NOT HIGHLIGHT PLASMA CELLS IN LAMINA PROPRIA IN MAJORITY OF THE FRAGMENTS EXCEPT ONE (SEE COMMENT) Signing Pathologist Direct Phone Line: [phone] signed by Gemma Samayoa MD on 03/03/2019 at 12:55 PMDecreased to absent plasma cells are seen inthe lamina propria consistent with history of common variable immunodeficiency. No features of microscopic colitis, active inflammation or parasites are seen.INTRADEPARTMENTAL CONSULTATION: - Sarah Siegel MD has seen specimen B and D and agrees with the diagnosis.[id number] x 4, [id number], [id number] diarrhea, polyp of cecum , H/O lung transplant in 12/2012, Common variable immunodeficiencyA. Cecum polyp. B.Random right colon biopsy, rule out microscopic colitis. C. Ascending colon polyp x3. D. Random leftcolon biopsy, rule out microscopic colitis.Received in formalin in four parts, all labeled with the patient's name and accession number.Part A. Labeled "polyp, colon-cecum" are two irregular kwong-red soft tissue fragments each measuring 0.3 cm, which are submitted in toto in A1.Part B. Labeled "large intestine, colon-right/ascending" are two irregular kwong soft tissue fragments measuring 0.5 cm and 0.4cm, which are submitted in toto in B1.Part C. Labeled "polyp, colon-right/ascending" are multiple wkong soft tissue fragments admixed with clotted blood ranging 0.2-0.5 cm, which are submitted in toto inC1.Part D. Labeled "large intestine, colon-left/descending" are multiple kwong soft tissue fragments ranging from 0.2-0.5 cm, which are submitted in toto in D1. CG/ewPerformed.The interpretation of this case included the use of immunohistochemistry or special stains.PHC539- no plasma cells highlighted in lamina propriaD CD138- no plasma cells highlighted in lamina propria , except in one fragmentControl Slides Examined: In-house known positive controls were evaluated along with the test tissue. These control slides run alongside of the patients sample show appropriate staining. Internal positive and negative controls when available are evaluated Immunohistochemistry technical testing [facility] where it was developed and its performancecharacteristics were determined. It has not been cleared or approved by the U.S. Food and Drug Administration. The FDA has determined that such clearance or approval is not necessary. The test is used f or clinical purposes. It should not be regarded as investigational or for research. This laboratory is certified under the Clinical Laboratory Improvement Amendments of 1988 (CLIA-88) as qualified to perform high complexity clinical laboratory testing.CT, CHEST, WITHOUT [id number] 16:06:00Referring: Dr. Yary Fernando for Exam:->s/p lung transplant, yearly follow upFINAL REPORT CT scan of the chest. HISTORY: Blunt abdominal trauma, microscopic hematuria, lung transplant follow-up. COMPARISON STUDY: Chest x-ray dated November 18, [address] scanof the chest dated March [...] is clear with no endobronchial lesions. The p ulmonary parenchyma demonstrates atelectasis or fibrosis in both [...] The ascites is new.4. Cholelithiasis. Signed: Georgi Mancilla MDReport Verified Date/Time: 01/20/2019 16:06:56 Reading Location:[facility] B1 C013Y CT Body Reading Room CMV PCR, QUANTITATIVE 2019-01-20 13:51:00 Test Item Value Reference Range Interpretation Comments CMV VIRAL LOAD - Negative or below the NEGATIVE (BEAKER) (test linear range of the code = 2558) assay (<375 copies/mL) Cytomegalovirus (CMV) infection can [...] viral load canbe evaluated by identifying a 10-fold change, as well as assessing the CMV DNA viral load and the clinical context for each patient.The plasma CMV DNA viral load was detected using quantitative polymerase chain reaction and fluorescent monitoring of a specific hybridized probe. Genetic variation and ot her factors can affect the accuracy of nucleic acid testing. Therefore, the results should be interpreted in light of clinical data. A negative result may not exclude the presence of CMV disease.This test was developed and its performance characteristics determined by the [facility] Path ology Department, Section of Molecular Pathology. It has not been cleared or approved by the U.S. Food and Drug Administration (FDA), since FDA approval is not required for clinical use of the test. Validation was done as required by The Clinical Laboratory Improvement Amendments of 1988.TACROLIMUS LEVEL 2019-01-20 12:43:00 Test Item Value Reference Range Interpretation Comments TACROLIMUS BLOOD (BEAKER) (test 10.4 ng/mL 10.0-20.0 code = 657) RAD, CHEST, 2 [id number] 12:28:00Referring: Dr. Yary Eastman Reason for Exam:->s/p lung transplantFINAL REPORT PA and lateral chest, 01/20/2019 COMPARISON: 11/18/2018 The heart,lungs and mediastinum remain within normal limits. Sternal sutures and mediastinal clips are noted. There is persistent minimal blunting of both costophrenic angles consistent with mild thickening or tiny effusions. No significant osseous abnormalities are identified. Signed: Fabio Rowan MDReport Verified Date/Time: 01/20/2019 12:28:25 Reading Location: [facility] Diagnostic Imaging Reading Room - [facility] [id number] 12:02:00 Test Item Value Reference Range Interpretation Comments PROSTATE SPECIFIC ANTIGEN (BEAKER) 0.3 ng/mL 0.0-4.0 (test code = 844) MALES onlyVITAMIN D, [id number] 12:02:00 Test Item Value Reference Range Interpretation Comments VITAMIN D 25-OH (BEAKER) (test 23.8 ng/mL 6.6-49.9 code = 2764) Effective 04/10/2017: Reference Range ChangeNew: 6.6-49.9 ng/mL Previous: 13.0-47.8 ng/mLRecommended Vitamin D Target Range: 30.0-40.0 ng/mLMALES only HEMOGLOBIN [id number] 11:40:00 Test Item Value Reference Range Interpretation Comments HEMOGLOBIN A1C (BEAKER) (test code = 4.4 % 4.3-6.1 368) [id number] 10:45:00 Test Item Value Reference Range Interpretation Comments PHOSPHORUS (BEAKER) (test code = 3.5 mg/dL 2.3-4.7 604) [id number] 10:45:00 Test Item Value Reference Range Interpretation Comments MAGNESIUM (BEAKER) (test code = 1.5 mg/dL 1.6-2.6 L 627) COMPREHENSIVE METABOLIC [id number] 10:45:00 Test Item Value Reference Range Interpretation Comments TOTAL PROTEIN 6.1 gm/dL 6.0-8.3 (BEAKER) (test code = 770) ALBUMIN (BEAKER) 4.0 g/dL 3.5-5.0 (test code = 1145) ALKALINE PHOSPHATASE 383 U/L 40-150 H (BEAKER) (test code = 346) BILIRUBIN TOTAL 0.9 mg/dL 0.2-1.2 (BEAKER) (test code = 377) SODIUM (BEAKER) (test 140 meq/L 136-145 code = 381) POTASSIUM (BEAKER) 5.2 meq/L 3.5-5.1 H (test code = 379) CHLORIDE (BEAKER) 116 meq/L 98-107 H (test code = 382) CO2 (BEAKER) (test 19 meq/L 22-29 L code = 355) BLOOD UREA NITROGEN 36 mg/dL 7-21 H (BEAKER) (test code = 354) CREATININE (BEAKER) 1.47 mg/dL 0.57-1.25 H (test code = 358) GLUCOSE RANDOM 85 mg/dL 70-105 (BEAKER) (test code = 652) CALCIUM (BEAKER) 8.9 mg/dL 8.4-10.2 (test code = 697) AST (SGOT) (BEAKER) 59 U/L 5-34 H (test code = 353) ALT (SGPT) (BEAKER) 54 U/L 6-55 (test code = 347) EGFR (BEAKER) (test 49 mL/min/1.73 ESTIMA ROBERTA GFR IS code = 1092) sq m NOT ACCURATE CREATININE CLEARANCE IN PREDICTING GLOMERULAR FILTRATION RATE . ESTIMATED GFR I S NOT APPLICABLE FOR DIALYSIS PATIEN TS. LIPID [id number] 10:45:00 Test Item Value Reference Range Interpretation Comments TRIGLYCERIDES (BEAKER) (test code = 82 mg/dL 540) CHOLESTEROL (BEAKER) (test code = 117 mg/dL 631) HDL CHOLESTEROL (BEAKER) (test code 39 mg/dL = 976) LDL CHOLESTEROL CALCULATED (BEAKER) 62 mg/dL (test code = 633) Triglyceride Reference Range: Low Risk <150 Borderline 150-199 High Risk 200-499 Very High Risk >=500Cholesterol Reference Range: Low Risk <200 Borderline 200-239 High Risk >240HDL Cholesterol Reference Range: Low Risk >=60 High Risk <40LDL Cholesterol Reference Range: Optimal <100 Near Optimal 100-129 Borderline 130-159 High 160-189 Very High >=190LACTATE DEHYDROGENASE (LDH)2019-01-20 10:45:00 Test Item Value Reference Range Interpretation Comments LACTATE DEHYDROGENASE (BEAKER) (test 205 U/L 125-220 code = 635) CBC W/PLT COUNT & AUTO [id number] 09:48:00 Test Item Value Reference Range Interpretation Comments WHITE BLOOD CELL COUNT (BEAKER) 3.9 K/ L 3.5-10.5 (test code = 775) RED BLOOD CELL COUNT (BEAKER) 3.25 M/ L 4.63-6.08 L (test code = 761) HEMOGLOBIN (BEAKER) (test code = 10.2 GM/DL 13.7-17.5 L 410) HEMATOCRIT (BEAKER) (test code = 31.7 % 40.1-51.0 L 411) MEAN CORPUSCULAR VOLUME (BEAKER) 97.5 fL 79.0-92.2 H (test code = 753) MEAN CORPUSCULAR HEMOGLOBIN 31.4 pg 25.7-32.2 (BEAKER) (test code = 751) MEAN CORPUSCULAR HEMOGLOBIN CONC 32.2 GM/DL 32.3-36.5 L (BEAKER) (test code = 752) RED CELL DISTRIBUTION WIDTH 15.7 % 11.6-14.4 H (BEAKER) (test code = 412) PLATELET COUNT (BEAKER) (test code 73 K/CU MM 150-450 L = 756) MEAN PLATELET VOLUME (BEAKER) 11.9 fL 9.4-12.4 (test code = 754) NUCLEATED RED BLOOD CELLS (BEAKER) 0 /100 WBC 0-0 (test code = 413) NEUTROPHILS RELATIVE PERCENT 70 % (BEAKER) (test code = 429) LYMPHOCYTES RELATIVE PERCENT 19 % (BEAKER) (test code = 430) MONOCYTES RELATIVE PERCENT 7 % (BEAKER) (test code = 431) EOSINOPHILS RELATIVE PERCENT 2 % (BEAKER) (test code = 432) BASOPHILS RELATIVE PERCENT 1 % (BEAKER) (test code = 437) NEUTROPHILS ABSOLUTE COUNT 2.71 K/ L 1.78-5.38 (BEAKER) (test code = 670) LYMPHOCYTES ABSOLUTE COUNT 0.75 K/ L 1.32-3.57 L (BEAKER) (test code = 414) MONOCYTES ABSOLUTE COUNT (BEAKER) 0.28 K/ L 0.30-0.82 L (test code = 415) EOSINOPHILS ABSOLUTE COUNT 0.07 K/ L 0.04-0.54 (BEAKER) (test code = 416) BASOPHILS ABSOLUTE COUNT (BEAKER) 0.04 K/ L 0.01-0.08 (test code = 417) IMMATURE GRANULOCYTES-RELATIVE 0 % 0-1 PERCENT (BEAKER) (test code = 2801) SPUTUM CULTURE + GRAM [id number] 23:12:00 Test Item Value Reference Range Interpretation Comments CULTURE (BEAKER) Oropharyngeal (test code = 1095) contamination, specimen rejected. Recollect requested. GRAM STAIN RESULT <1+ WBCs (BEAKER) (test code = 1123) GRAM STAIN RESULT 10-15 epithelial cells (BEAKER) (test code = 92036) GRAM STAIN RESULT <1+ gram negative rods (BEAKER) (test code = 98476) GRAM STAIN RESULT 3+ gram positive cocci in (BEAKER) (test code pairs and clusters = 950993) TACROLIMUS [id number] 11:06:00 Test Item Value Reference Range Interpretation Comments TACROLIMUS BLOOD (BEAKER) (test 9.7 ng/mL 10.0-20.0 L code = 657) [id number] 09:20:00 Test Item Value Reference Range Interpretation Comments MAGNESIUM (BEAKER) (test code = 1.7 mg/dL 1.6-2.6 627) COMPREHENSIVE METABOLIC [id number] 09:20:00 Test Item Value Reference Range Interpretation Comments TOTAL PROTEIN 5.7 gm/dL 6.0-8.3 L (BEAKER) (test code = 770) ALBUMIN (BEAKER) 3.8 g/dL 3.5-5.0 (test code = 1145) ALKALINE PHOSPHATASE 495 U/L 40-150 H (BEAKER) (test code = 346) BILIRUBIN TOTAL 0.7 mg/dL 0.2-1.2 (BEAKER) (test code = 377) SODIUM (BEAKER) (test 144 meq/L 136-145 code = 381) POTASSIUM (BEAKER) 5.3 meq/L 3.5-5.1 H (test code = 379) CHLORIDE (BEAKER) 119 meq/L 98-107 H (test code = 382) CO2 (BEAKER) (test 20 meq/L 22-29 L code = 355) BLOOD UREA NITROGEN 30 mg/dL 7-21 H (BEAKER) (test code = 354) CREATININE (BEAKER) 1.50 mg/dL 0.57-1.25 H (test code = 358) GLUCOSE RANDOM 93 mg/dL 70-105 (BEAKER) (test code = 652) CALCIUM (BEAKER) 9.2 mg/dL 8.4-10.2 (test code = 697) AST (SGOT) (BEAKER) 41 U/L 5-34 H (test code = 353) ALT (SGPT) (BEAKER) 49 U/L 6-55 (test code = 347) EGFR (BEAKER) (test 48 mL/min/1.73 ESTIMA ROBERTA GFR IS code = 1092) sq m NOT ACCURATE CREATININE CLEARANCE IN PREDICTING GLOMERULAR FILTRATION RATE . ESTIMATED GFR I S NOT APPLICABLE FOR DIALYSIS PATIEN TS. CBC W/PLT COUNT & AUTO [id number] 09:01:00 Test Item Value Reference Range Interpretation Comments WHITE BLOOD CELL COUNT (BEAKER) 4.0 K/ L 3.5-10.5 (test code = 775) RED BLOOD CELL COUNT (BEAKER) 3.21 M/ L 4.63-6.08 L (test code = 761) HEMOGLOBIN (BEAKER) (test code = 9.6 GM/DL 13.7-17.5 L 410) HEMATOCRIT (BEAKER) (test code = 31.4 % 40.1-51.0 L 411) MEAN CORPUSCULAR VOLUME (BEAKER) 97.8 fL 79.0-92.2 H (test code = 753) MEAN CORPUSCULAR HEMOGLOBIN 29.9 pg 25.7-32.2 (BEAKER) (test code = 751) MEAN CORPUSCULAR HEMOGLOBIN CONC 30.6 GM/DL 32.3-36.5 L (BEAKER) (test code = 752) RED CELL DISTRIBUTION WIDTH 18.0 % 11.6-14.4 H (BEAKER) (test code = 412) PLATELET COUNT (BEAKER) (test code 84 K/CU MM 150-450 L = 756) MEAN PLATELET VOLUME (BEAKER) 9.8 fL 9.4-12.4 (test code = 754) NUCLEATED RED BLOOD CELLS (BEAKER) 0 /100 WBC 0-0 (test code = 413) NEUTROPHILS RELATIVE PERCENT 70 % (BEAKER) (test code = 429) LYMPHOCYTES RELATIVE PERCENT 19 % (BEAKER) (test code = 430) MONOCYTES RELATIVE PERCENT 7 % (BEAKER) (test code = 431) EOSINOPHILS RELATIVE PERCENT 3 % (BEAKER) (test code = 432) BASOPHILS RELATIVE PERCENT 1 % (BEAKER) (test code = 437) NEUTROPHILS ABSOLUTE COUNT 2.82 K/ L 1.78-5.38 (BEAKER) (test code = 670) LYMPHOCYTES ABSOLUTE COUNT 0.78 K/ L 1.32-3.57 L (BEAKER) (test code = 414) MONOCYTES ABSOLUTE COUNT (BEAKER) 0.28 K/ L 0.30-0.82 L (test code = 415) EOSINOPHILS ABSOLUTE COUNT 0.10 K/ L 0.04-0.54 (BEAKER) (test code = 416) BASOPHILS ABSOLUTE COUNT (BEAKER) 0.03 K/ L 0.01-0.08 (test code = 417) IMMATURE GRANULOCYTES-RELATIVE 1 % 0-1 PERCENT (BEAKER) (test code = 2801) CMV PCR, [id number] 15:10:00 Test Item Value Reference Range Interpretation Comments CMV VIRAL LOAD - Negative or below the NEGATIVE (BEAKER) (test linear range of the code = 2558) assay (<375 copies/mL) Cytomegalovirus (CMV) infection can [...] viral load canbe evaluated by identifying a 10-fold change, as well as assessing the CMV DNA viral load and the clinical context for each patient.The plasma CMV DNA viral load was detected using quantitative polymerase chain reaction and fluorescent monitoring of a specific hybridized probe. Genetic variation and ot her factors can affect the accuracy of nucleic acid testing. Therefore, the results should be interpreted in light of clinical data. A negative result may not exclude the presence of CMV disease.This test was developed and its performance characteristics determined by the [facility] Path ology Department, Section of Molecular Pathology. It has not been cleared or approved by the U.S. Food and Drug Administration (FDA), since FDA approval is not required for clinical use of the test. Validation was done as required by The Clinical Laboratory Improvement Amendments of 1988.RESPIRATORY PANEL [facility] 2018-11-18 16:22:00 Test Item Value Reference Range Interpretation Comments HUMAN METAPNEUMOVIRUS Not detected Not detected, (BEAKER) (test code = 2683) Equivocal RHINOVIRUS (BEAKER) (test Not detected Not detected, code = 2684) Equivocal INFLUENZA A (BEAKER) (test Not detected Not detected, code = 2685) Equivocal INFLUENZA A (NO SUBTYPE) Not detected, (test code = 3606) Equivocal INFLUENZA A SUBTYPE H1 Not detected, (BEAKER) (test code = 2686) Equivocal INFLUENZA A SUBTYPE H3 Not detected, (BEAKER) (test code = 2687) Equivocal INFLUENZA A SUBTYPE H1-2009 Not detected, (BEAKER) (test code = 3198) Equivocal INFLUENZA B (BEAKER) (test Not detected Not detected, code = 2688) Equivocal RESPIRATORY SYNCYTIAL VIRUS Not detected Not detected, (BEAKER) (test code = 3199) Equivocal PARAINFLUENZA VIRUS 1 Not detected Not detected, (BEAKER) (test code = 2691) Equivocal PARAINFLUENZA VIRUS 2 Not detected Not detected, (BEAKER) (test code = 2692) Equivocal PARAINFLUENZA VIRUS 3 Not detected Not detected, (BEAKER) (test code = 2693) Equivocal PARAINFLUENZA VIRUS 4 Not detected Not detected, (BEAKER) (test code = 3200) Equivocal ADENOVIRUS (BEAKER) (test Not detected Not detected, code = 2694) Equivocal CORONAVIRUS 229E (BEAKER) Not detected Not detected, (test code = 3201) Equivocal CORONAVIRUS HKU1 (BEAKER) Not detected Not detected, (test code = 3202) Equivocal CORONAVIRUS NL63 (BEAKER) Not detected Not detected, (test code = 3203) Equivocal CORONAVIRUS OC43 (BEAKER) Not detected Not detected, (test code = 3204) Equivocal BORDETELLA PERTUSSIS Not detected Not detected, (BEAKER) (test code = 3205) Equivocal CHLAMYDOPHILA PNEUMONIAE Not detected Not detected, (BEAKER) (test code = 3206) Equivocal MYCOPLASMA PNEUMONIAE Not detected Not detected, (BEAKER) (test code = 3207) Equivocal Other viruses and bacteria not targeted [...] [facility] Molecular Diagnostics Laboratory using the Book Buyback[employer] Respiratory Panel. It is FDA cleared and has been verified and approved by the [facility] Molecular Diagnostics Laboratory for clinical use on nasopharyngeal swab specimens.The performance of the FilmArrayRP has not been established in individuals who received influenza vaccine. Recent administration ofa nasal influenza vaccine may cause false positive results for Influenza A and/orInfluenza B.HEMOGLOBIN [id number] 12:52:00 Test Item Value Reference Range Interpretation Comments HEMOGLOBIN A1C (BEAKER) (test code = 4.9 % 4.3-6.1 368) TACROLIMUS [id number] 12:24:00 Test Item Value Reference Range Interpretation Comments TACROLIMUS BLOOD (BEAKER) (test 2.8 ng/mL 10.0-20.0 L code = 657) [id number] 11:47:00 Test Item Value Reference Range Interpretation Comments PHOSPHORUS (BEAKER) (test code = 3.2 mg/dL 2.3-4.7 604) [id number] 11:47:00 Test Item Value Reference Range Interpretation Comments MAGNESIUM (BEAKER) (test code = 1.6 mg/dL 1.6-2.6 627) COMPREHENSIVE METABOLIC [id number] 11:47:00 Test Item Value Reference Range Interpretation Comments TOTAL PROTEIN 5.9 gm/dL 6.0-8.3 L (BEAKER) (test code = 770) ALBUMIN (BEAKER) 3.7 g/dL 3.5-5.0 (test code = 1145) ALKALINE PHOSPHATASE 593 U/L 40-150 H (BEAKER) (test code = 346) BILIRUBIN TOTAL 0.5 mg/dL 0.2-1.2 (BEAKER) (test code = 377) SODIUM (BEAKER) (test 139 meq/L 136-145 code = 381) POTASSIUM (BEAKER) 4.5 meq/L 3.5-5.1 (test code = 379) CHLORIDE (BEAKER) 111 meq/L 98-107 H (test code = 382) CO2 (BEAKER) (test 23 meq/L 22-29 code = 355) BLOOD UREA NITROGEN 26 mg/dL 7-21 H (BEAKER) (test code = 354) CREATININE (BEAKER) 1.23 mg/dL 0.57-1.25 (test code = 358) GLUCOSE RANDOM 93 mg/dL 70-105 (BEAKER) (test code = 652) CALCIUM (BEAKER) 8.8 mg/dL 8.4-10.2 (test code = 697) AST (SGOT) (BEAKER) 36 U/L 5-34 H (test code = 353) ALT (SGPT) (BEAKER) 49 U/L 6-55 (test code = 347) EGFR (BEAKER) (test 60 mL/min/1.73 ESTIMA ROBERTA GFR IS code = 1092) sq m NOT ACCURATE CREATININE CLEARANCE IN PREDICTING GLOMERULAR FILTRATION RATE . ESTIMATED GFR I S NOT APPLICABLE FOR DIALYSIS PATIEN TS. LIPID [id number] 11:47:00 Test Item Value Reference Range Interpretation Comments TRIGLYCERIDES (BEAKER) (test code = 94 mg/dL 540) CHOLESTEROL (BEAKER) (test code = 135 mg/dL 631) HDL CHOLESTEROL (BEAKER) (test code 41 mg/dL = 976) LDL CHOLESTEROL CALCULATED (BEAKER) 75 mg/dL (test code = 633) Triglyceride Reference Range: Low Risk <150 Borderline 150-199 High Risk 200-499 Very High Risk >=500Cholesterol Reference Range: Low Risk <200 Borderline 200-239 High Risk >240HDL Cholesterol Reference Range: Low Risk >=60 High Risk <40LDL Cholesterol Reference Range: Optimal <100 Near Optimal 100-129 Borderline 130-159 High 160-189 Very High >=190LACTATE DEHYDROGENASE (LDH)2018-11-18 11:47:00 Test Item Value Reference Range Interpretation Comments LACTATE DEHYDROGENASE (BEAKER) (test 194 U/L 125-220 code = 635) CBC W/PLT COUNT & AUTO [id number] 11:19:00 Test Item Value Reference Range Interpretation Comments WHITE BLOOD CELL COUNT (BEAKER) 6.1 K/ L 3.5-10.5 (test code = 775) RED BLOOD CELL COUNT (BEAKER) 2.95 M/ L 4.63-6.08 L (test code = 761) HEMOGLOBIN (BEAKER) (test code = 8.7 GM/DL 13.7-17.5 L 410) HEMATOCRIT (BEAKER) (test code = 27.9 % 40.1-51.0 L 411) MEAN CORPUSCULAR VOLUME (BEAKER) 94.6 fL 79.0-92.2 H (test code = 753) MEAN CORPUSCULAR HEMOGLOBIN 29.5 pg 25.7-32.2 (BEAKER) (test code = 751) MEAN CORPUSCULAR HEMOGLOBIN CONC 31.2 GM/DL 32.3-36.5 L (BEAKER) (test code = 752) RED CELL DISTRIBUTION WIDTH 16.1 % 11.6-14.4 H (BEAKER) (test code = 412) PLATELET COUNT (BEAKER) (test code 99 K/CU MM 150-450 L = 756) MEAN PLATELET VOLUME (BEAKER) 10.7 fL 9.4-12.4 (test code = 754) NUCLEATED RED BLOOD CELLS (BEAKER) 0 /100 WBC 0-0 (test code = 413) NEUTROPHILS RELATIVE PERCENT 84 % (BEAKER) (test code = 429) LYMPHOCYTES RELATIVE PERCENT 9 % (BEAKER) (test code = 430) MONOCYTES RELATIVE PERCENT 5 % (BEAKER) (test code = 431) EOSINOPHILS RELATIVE PERCENT 0 % (BEAKER) (test code = 432) BASOPHILS RELATIVE PERCENT 0 % (BEAKER) (test code = 437) NEUTROPHILS ABSOLUTE COUNT 5.10 K/ L 1.78-5.38 (BEAKER) (test code = 670) LYMPHOCYTES ABSOLUTE COUNT 0.57 K/ L 1.32-3.57 L (BEAKER) (test code = 414) MONOCYTES ABSOLUTE COUNT (BEAKER) 0.31 K/ L 0.30-0.82 (test code = 415) EOSINOPHILS ABSOLUTE COUNT 0.02 K/ L 0.04-0.54 L (BEAKER) (test code = 416) BASOPHILS ABSOLUTE COUNT (BEAKER) 0.01 K/ L 0.01-0.08 (test code = 417) IMMATURE GRANULOCYTES-RELATIVE 2 % 0-1 H PERCENT (BEAKER) (test code = 2801) RAD, CHEST, 2 [id number] 10:04:00Reason for Exam:->s/p lung transplant FINAL REPORT Chest, 2 views. Clinical History: s/p lung transplant ComparisonStudy: August 05, 2018 Findings: The heart and lungs are within normal limits. Sternotomy wires are seen. Blunting of the right costophrenic angle is seen. No significant bony or soft tissue abnormalities are seen. Impression: No significant change. Signed: Georgi Mancilla Verified Date/Time: 11/18/2018 10:04:14 Reading Location: [address] Radiology Reading Room [id number] 13:40:00 Test Item Value Reference Range Interpretation Comments BLOOD UREA NITROGEN (BEAKER) (test 22 mg/dL 7-21 H code = 354) [id number] 13:40:00 Test Item Value Reference Range Interpretation Comments CREATININE (BEAKER) 1.03 mg/dL 0.57-1.25 (test code = 358) EGFR (BEAKER) (test 73 mL/min/1.73 ESTIMA ROBERTA GFR IS code = 1092) sq m NOT ACCURATE CREATININE CLEARANCE IN PREDICTING GLOMERULAR FILTRATION RATE . ESTIMATED GFR I S NOT APPLICABLE FOR DIALYSIS PATIEN TS. GIARDIA [id number] 15:23:00 Test Item Value Reference Range Interpretation Comments GIARDIA ANTIGEN Not detected Not detected NOTE: Due to (QUEST) (test code intermitt ent shedding, = 1313104) one negative sample does not necess arily rule out the presence of a parasitic infec tion. Performing Lab *[facility], [address] [place] [id number] Sumi Davila MD, PhDOVA AND PARASITE [id number] 07:46:00 Test Item Value Reference Range Interpretation Comments DIRECT SMEAR - O\\T\\P No ova or parasites No ova or parasites (BEAKER) (test code = seen seen 196) CONCENTRATE SMEAR - No ova or parasites No ova or parasites O\\T\\P (BEAKER) (test seen seen code = 247) TRICHROME SMEAR - No ova or parasites No ova or parasites O\\T\\P (BEAKER) (test seen seen code = 248) U/S, [id number] 15:43:00Reason for Exam:->abdl distentionReason for Exam:->s/p lung transplantFINAL REPORT Ultrasound guided paracentesis Clinical History: Ascites LocalAnesthesia: 5 cc of 1% lidocaine Technique: Informed consent is obtained. The risks of pain, bleed ing, infection, bowel perforation, injury to adjacent structures, [...] manner.After local anesthesia is achieved, a 5 Chinese catheter is advanced into the peritoneal cavity. Approximately 1300 cc of serosanguineous fluid is drained, without immediate complications. Fluid is sent for analysis. Patient Disposition: The patient is discharged from the ultrasound department after the paracentesis, in good condition. Impression: Successful and uncomplicated ultrasound guided paracentesis is performed. Signed: Judy Perry Verified Date/Time: 08/19/2018 15:43:52 Reading Location: [address] Ultrasound Reading Room Electronically signed by: JUDY PERRY M.D. on08/19/2018 03:43 PMRESPIRATORY PANEL [id number] 13:59:00 Test Item Value Reference Range Interpretation Comments HUMAN METAPNEUMOVIRUS Not detected Not detected, (BEAKER) (test code = 2683) Equivocal RHINOVIRUS (BEAKER) (test Not detected Not detected, code = 2684) Equivocal INFLUENZA A (BEAKER) (test Not detected Not detected, code = 2685) Equivocal INFLUENZA A (NO SUBTYPE) Not detected, (test code = 3606) Equivocal INFLUENZA A SUBTYPE H1 Not detected, (BEAKER) (test code = 2686) Equivocal INFLUENZA A SUBTYPE H3 Not detected, (BEAKER) (test code = 2687) Equivocal INFLUENZA A SUBTYPE H1-2009 Not detected, (BEAKER) (test code = 3198) Equivocal INFLUENZA B (BEAKER) (test Not detected Not detected, code = 2688) Equivocal RESPIRATORY SYNCYTIAL VIRUS Not detected Not detected, (BEAKER) (test code = 3199) Equivocal PARAINFLUENZA VIRUS 1 Not detected Not detected, (BEAKER) (test code = 2691) Equivocal PARAINFLUENZA VIRUS 2 Not detected Not detected, (BEAKER) (test code = 2692) Equivocal PARAINFLUENZA VIRUS 3 Not detected Not detected, (BEAKER) (test code = 2693) Equivocal PARAINFLUENZA VIRUS 4 Not detected Not detected, (BEAKER) (test code = 3200) Equivocal ADENOVIRUS (BEAKER) (test Not detected Not detected, code = 2694) Equivocal CORONAVIRUS 229E (BEAKER) Not detected Not detected, (test code = 3201) Equivocal CORONAVIRUS HKU1 (BEAKER) Not detected Not detected, (test code = 3202) Equivocal CORONAVIRUS NL63 (BEAKER) Not detected Not detected, (test code = 3203) Equivocal CORONAVIRUS OC43 (BEAKER) Not detected Not detected, (test code = 3204) Equivocal BORDETELLA PERTUSSIS Not detected Not detected, (BEAKER) (test code = 3205) Equivocal CHLAMYDOPHILA PNEUMONIAE Not detected Not detected, (BEAKER) (test code = 3206) Equivocal MYCOPLASMA PNEUMONIAE Not detected Not detected, (BEAKER) (test code = 3207) Equivocal Other viruses and bacteria not targeted [...] [facility] Molecular Diagnostics Laboratory using the Book [employer] Respiratory Panel. It is FDA cleared and has been verified and approved by the [facility] Molecular Diagnostics Laboratory for clinical use on nasal swab specimens. It is not FDA-cleared for use on bronchial wash/lavage samples. However, for this sample type, validation was performed and test characteristics were determined and approved, by [facility] laboratory for clinical use under the Clinical Laboratory Improvement Amendments (CLIA) of 1988 requirements. Therefore, FDA clearance isnot required. This laboratory is CLIA-certified and [employer] ([employer])-accredited to perform high complexity testing.TACROLIMUS [id number] 13:46:00 Test Item Value Reference Range Interpretation Comments TACROLIMUS BLOOD (BEAKER) (test 5.5 ng/mL 10.0-20.0 L code = 657) PROTHROMBIN [id number] 13:05:00 Test Item Value Reference Range Interpretation Comments PROTIME (BEAKER) (test code = 14.6 seconds 11.7-14.7 759) INR (BEAKER) (test code = 370) 1.1 <=5.9 RECOMMENDED COUMADIN/WARFARIN INR THERAPY RANGESSTANDARD DOSE: 2.0 - 3.0 Includes: PROPHYLAXIS forvenous thrombosis, systemic embolization; TREATMENT for venous thrombosis and/or pulmonary embolus.HIGH RISK: Target INR is 2.5-3.5 for patients with mechanical heart valves.RAPID STREP A [id number] 11:41:00 Test Item Value Reference Range Interpretation Comments STREP A ANTIGEN (BEAKER) (test code Negative Negative = 556) [id number] 11:10:00 Test Item Value Reference Range Interpretation Comments MAGNESIUM (BEAKER) (test code = 1.4 mg/dL 1.6-2.6 L 627) BASIC METABOLIC [id number] 11:10:00 Test Item Value Reference Range Interpretation Comments SODIUM (BEAKER) 141 meq/L 136-145 (test code = 381) POTASSIUM (BEAKER) 3.9 meq/L 3.5-5.1 (test code = 379) CHLORIDE (BEAKER) 114 meq/L 98-107 H (test code = 382) CO2 (BEAKER) (test 21 meq/L 22-29 L code = 355) BLOOD UREA NITROGEN 15 mg/dL 7-21 (BEAKER) (test code = 354) CREATININE (BEAKER) 1.12 mg/dL 0.57-1.25 (test code = 358) GLUCOSE RANDOM 82 mg/dL 70-105 (BEAKER) (test code = 652) CALCIUM (BEAKER) 8.1 mg/dL 8.4-10.2 L (test code = 697) EGFR (BEAKER) (test 67 mL/min/1.73 ESTIMA ROBERTA GFR IS code = 1092) sq m NOT ACCURATE CREATININE CLEARANCE IN PREDICTING GLOMERULAR FILTRATION RATE . ESTIMATED GFR I S NOT APPLICABLE FOR DIALYSIS PATIEN TS. CBC W/PLT COUNT & AUTO [id number] 10:55:00 Test Item Value Reference Range Interpretation Comments WHITE BLOOD CELL COUNT (BEAKER) 3.0 K/ L 3.5-10.5 L (test code = 775) RED BLOOD CELL COUNT (BEAKER) 3.28 M/ L 4.63-6.08 L (test code = 761) HEMOGLOBIN (BEAKER) (test code = 8.7 GM/DL 13.7-17.5 L 410) HEMATOCRIT (BEAKER) (test code = 29.0 % 40.1-51.0 L 411) MEAN CORPUSCULAR VOLUME (BEAKER) 88.4 fL 79.0-92.2 (test code = 753) MEAN CORPUSCULAR HEMOGLOBIN 26.5 pg 25.7-32.2 (BEAKER) (test code = 751) MEAN CORPUSCULAR HEMOGLOBIN CONC 30.0 GM/DL 32.3-36.5 L (BEAKER) (test code = 752) RED CELL DISTRIBUTION WIDTH 16.7 % 11.6-14.4 H (BEAKER) (test code = 412) PLATELET COUNT (BEAKER) (test code 80 K/CU MM 150-450 L = 756) MEAN PLATELET VOLUME (BEAKER) 11.0 fL 9.4-12.4 (test code = 754) NUCLEATED RED BLOOD CELLS (BEAKER) 0 /100 WBC 0-0 (test code = 413) NEUTROPHILS RELATIVE PERCENT 76 % (BEAKER) (test code = 429) LYMPHOCYTES RELATIVE PERCENT 17 % (BEAKER) (test code = 430) MONOCYTES RELATIVE PERCENT 5 % (BEAKER) (test code = 431) EOSINOPHILS RELATIVE PERCENT 1 % (BEAKER) (test code = 432) BASOPHILS RELATIVE PERCENT 0 % (BEAKER) (test code = 437) NEUTROPHILS ABSOLUTE COUNT 2.27 K/ L 1.78-5.38 (BEAKER) (test code = 670) LYMPHOCYTES ABSOLUTE COUNT 0.51 K/ L 1.32-3.57 L (BEAKER) (test code = 414) MONOCYTES ABSOLUTE COUNT (BEAKER) 0.16 K/ L 0.30-0.82 L (test code = 415) EOSINOPHILS ABSOLUTE COUNT 0.02 K/ L 0.04-0.54 L (BEAKER) (test code = 416) BASOPHILS ABSOLUTE COUNT (BEAKER) 0.01 K/ L 0.01-0.08 (test code = 417) IMMATURE GRANULOCYTES-RELATIVE 0 % 0-1 PERCENT (BEAKER) (test code = 2801) BUN AND [id number] 15:09:00 Test Item Value Reference Range Interpretation Comments BLOOD UREA NITROGEN 22 mg/dL 7-21 H (BEAKER) (test code = 354) CREATININE (BEAKER) 1.19 mg/dL 0.57-1.25 Specimen slightly (test code = 358) hemolyzed EGFR (BEAKER) (test 62 mL/min/1.73 ESTIMA ROBERTA GFR IS code = 1092) sq m NOT ACCURATE CREATININE CLEARANCE IN PREDICTING GLOMERULAR FILTRATION RATE . ESTIMATED GFR I S NOT APPLICABLE FOR DIALYSIS PATIEN TS. STOOL CULTURE + SHIGA [id number] 12:11:00 Test Item Value Reference Range Interpretation Comments CULTURE (BEAKER) No Salmonella, Shigella (test code = 1095) or Campylobacter isolated SHIGA TOXIN [id number] 16:28:00 Test Item Value Reference Range Interpretation Comments SHIGA TOXIN 1 (BEAKER) (test Not detected Not detected code = 2177) SHIGA TOXIN 2 (BEAKER) (test Not detected Not detected code = 2179) STOOL PATH [id number] 12:11:00 Test Item Value Reference Range Interpretation Comments PATHOGEN EXAM CHARGED (BEAKER) (test Done code = 2381) C. DIFFICILE GDH [id number] 16:18:00 Test Item Value Reference Range Interpretation Comments CDT TOXIN (test code Negative Negative = [id number]) CDT GDH ANTIGEN (test Negative Negative No ind ication of code = [id number]) Clostridi um difficile infection and n o colonization. Discontinue ent phyllis isolation and t herapy. Testing performed by [employer] Rapid Cassette Assay. For GDH, published sensitivity of the assay is 98.7% compared to cytotoxicity testing. For Toxin AB, published sensitivity is 87.8% and specificity 99.4% compared to cytotoxicity testing.Verification of kit performance was done by the [facility] Microbiology Lab prior to clinical use.FECAL [id number] 14:50:00 Test Item Value Reference Range Interpretation Comments FECAL LEUKOCYTES No fecal leukocytes No fecal leukocytes (BEAKER) (test code = seen seen 992) CMV PCR, [id number] 14:34:00 Test Item Value Reference Range Interpretation Comments CMV VIRAL LOAD - Negative or below the NEGATIVE (BEAKER) (test linear range of the code = 2558) assay (<375 copies/mL) Cytomegalovirus (CMV) infection can [...] viral load canbe evaluated by identifying a 10-fold change, as well as assessing the CMV DNA viral load and the clinical context for each patient.The plasma CMV DNA viral load was detected using quantitative polymerase chain reaction and fluorescent monitoring of a specific hybridized probe. Genetic variation and ot her factors can affect the accuracy of nucleic acid testing. Therefore, the results should be interpreted in light of clinical data. A negative result may not exclude the presence of CMV disease.This test was developed and its performance characteristics determined by the [facility] Path ology Department, Section of Molecular Pathology. It has not been cleared or approved by the U.S. Food and Drug Administration (FDA), since FDA approval is not required for clinical use of the test. Validation was done as required by The Clinical Laboratory Improvement Amendments of 1988.TACROLIMUS LEVEL 2018-08-05 12:06:00 Test Item Value Reference Range Interpretation Comments TACROLIMUS BLOOD (BEAKER) (test 4.8 ng/mL 10.0-20.0 L code = 657) [id number] 08:47:00 Test Item Value Reference Range Interpretation Comments PHOSPHORUS (BEAKER) (test code = 2.1 mg/dL 2.3-4.7 L 604) [id number] 08:47:00 Test Item Value Reference Range Interpretation Comments MAGNESIUM (BEAKER) (test code = 1.7 mg/dL 1.6-2.6 627) COMPREHENSIVE METABOLIC [id number] 08:47:00 Test Item Value Reference Range Interpretation Comments TOTAL PROTEIN 5.2 gm/dL 6.0-8.3 L (BEAKER) (test code = 770) ALBUMIN (BEAKER) 3.7 g/dL 3.5-5.0 (test code = 1145) ALKALINE PHOSPHATASE 421 U/L 40-150 H (BEAKER) (test code = 346) BILIRUBIN TOTAL 0.8 mg/dL 0.2-1.2 (BEAKER) (test code = 377) SODIUM (BEAKER) (test 145 meq/L 136-145 code = 381) POTASSIUM (BEAKER) 5.2 meq/L 3.5-5.1 H (test code = 379) CHLORIDE (BEAKER) 117 meq/L 98-107 H (test code = 382) CO2 (BEAKER) (test 22 meq/L 22-29 code = 355) BLOOD UREA NITROGEN 23 mg/dL 7-21 H (BEAKER) (test code = 354) CREATININE (BEAKER) 1.21 mg/dL 0.57-1.25 (test code = 358) GLUCOSE RANDOM 91 mg/dL 70-105 (BEAKER) (test code = 652) CALCIUM (BEAKER) 8.6 mg/dL 8.4-10.2 (test code = 697) AST (SGOT) (BEAKER) 39 U/L 5-34 H (test code = 353) ALT (SGPT) (BEAKER) 44 U/L 6-55 (test code = 347) EGFR (BEAKER) (test 61 mL/min/1.73 ESTIMA ROBERTA GFR IS code = 1092) sq m NOT ACCURATE CREATININE CLEARANCE IN PREDICTING GLOMERULAR FILTRATION RATE . ESTIMATED GFR I S NOT APPLICABLE FOR DIALYSIS PATIEN TS. LACTATE DEHYDROGENASE (LDH)2018-08-05 08:47:00 Test Item Value Reference Range Interpretation Comments LACTATE DEHYDROGENASE (BEAKER) (test 189 U/L 125-220 code = 635) RAD, CHEST, 2 [id number] 08:33:00Reason for Exam:->s/p lung transplant FINAL REPORT CHEST, AP AND LATERAL. HISTORY: Status [...] The soft tissues are unremarkable. Signed: Javed Paez MDReport Verified Date/Time: 08/05/2018 08:33:35 Reading Location: [facility] Radiology Reading Room CBC W/PLT COUNT & AUTO [id number] 08:23:00 Test Item Value Reference Range Interpretation Comments WHITE BLOOD CELL COUNT (BEAKER) 5.5 K/ L 3.5-10.5 (test code = 775) RED BLOOD CELL COUNT (BEAKER) 3.46 M/ L 4.63-6.08 L (test code = 761) HEMOGLOBIN (BEAKER) (test code = 9.4 GM/DL 13.7-17.5 L 410) HEMATOCRIT (BEAKER) (test code = 31.3 % 40.1-51.0 L 411) MEAN CORPUSCULAR VOLUME (BEAKER) 90.5 fL 79.0-92.2 (test code = 753) MEAN CORPUSCULAR HEMOGLOBIN 27.2 pg 25.7-32.2 (BEAKER) (test code = 751) MEAN CORPUSCULAR HEMOGLOBIN CONC 30.0 GM/DL 32.3-36.5 L (BEAKER) (test code = 752) RED CELL DISTRIBUTION WIDTH 16.5 % 11.6-14.4 H (BEAKER) (test code = 412) PLATELET COUNT (BEAKER) (test 126 K/CU MM 150-450 L code = 756) MEAN PLATELET VOLUME (BEAKER) 11.0 fL 9.4-12.4 (test code = 754) NUCLEATED RED BLOOD CELLS 0 /100 WBC 0-0 (BEAKER) (test code = 413) NEUTROPHILS RELATIVE PERCENT 74 % (BEAKER) (test code = 429) LYMPHOCYTES RELATIVE PERCENT 16 % (BEAKER) (test code = 430) MONOCYTES RELATIVE PERCENT 8 % (BEAKER) (test code = 431) EOSINOPHILS RELATIVE PERCENT 2 % (BEAKER) (test code = 432) BASOPHILS RELATIVE PERCENT 1 % (BEAKER) (test code = 437) NEUTROPHILS ABSOLUTE COUNT 4.03 K/ L 1.78-5.38 (BEAKER) (test code = 670) LYMPHOCYTES ABSOLUTE COUNT 0.86 K/ L 1.32-3.57 L (BEAKER) (test code = 414) MONOCYTES ABSOLUTE COUNT (BEAKER) 0.41 K/ L 0.30-0.82 (test code = 415) EOSINOPHILS ABSOLUTE COUNT 0.13 K/ L 0.04-0.54 (BEAKER) (test code = 416) BASOPHILS ABSOLUTE COUNT (BEAKER) 0.03 K/ L 0.01-0.08 (test code = 417) IMMATURE GRANULOCYTES-RELATIVE 0 % 0-1 PERCENT (BEAKER) (test code = 2801) AFB CULTURE + [id number] 12:42:00 Test Item Value Reference Range Interpretation Comments CULTURE (BEAKER) (test No acid-fast bacilli code = 1095) isolated in 42 days AFB SMEAR (BEAKER) No acid fast bacilli (test code = 994) seen TACROLIMUS [id number] 11:26:00 Test Item Value Reference Range Interpretation Comments TACROLIMUS BLOOD (BEAKER) (test 5.6 ng/mL 10.0-20.0 L code = 657) CBC W/PLT COUNT & AUTO [id number] 08:07:00 Test Item Value Reference Range Interpretation Comments WHITE BLOOD CELL COUNT (BEAKER) 5.2 K/ L 3.5-10.5 (test code = 775) RED BLOOD CELL COUNT (BEAKER) 3.11 M/ L 4.63-6.08 L (test code = 761) HEMOGLOBIN (BEAKER) (test code = 9.1 GM/DL 13.7-17.5 L 410) HEMATOCRIT (BEAKER) (test code = 29.2 % 40.1-51.0 L 411) MEAN CORPUSCULAR VOLUME (BEAKER) 93.9 fL 79.0-92.2 H (test code = 753) MEAN CORPUSCULAR HEMOGLOBIN 29.3 pg 25.7-32.2 (BEAKER) (test code = 751) MEAN CORPUSCULAR HEMOGLOBIN CONC 31.2 GM/DL 32.3-36.5 L (BEAKER) (test code = 752) RED CELL DISTRIBUTION WIDTH 15.9 % 11.6-14.4 H (BEAKER) (test code = 412) PLATELET COUNT (BEAKER) (test 100 K/CU MM 150-450 L code = 756) MEAN PLATELET VOLUME (BEAKER) 10.0 fL 9.4-12.4 (test code = 754) NUCLEATED RED BLOOD CELLS 0 /100 WBC 0-0 (BEAKER) (test code = 413) NEUTROPHILS RELATIVE PERCENT 82 % (BEAKER) (test code = 429) LYMPHOCYTES RELATIVE PERCENT 10 % (BEAKER) (test code = 430) MONOCYTES RELATIVE PERCENT 7 % (BEAKER) (test code = 431) EOSINOPHILS RELATIVE PERCENT 1 % (BEAKER) (test code = 432) BASOPHILS RELATIVE PERCENT 1 % (BEAKER) (test code = 437) NEUTROPHILS ABSOLUTE COUNT 4.24 K/ L 1.78-5.38 (BEAKER) (test code = 670) LYMPHOCYTES ABSOLUTE COUNT 0.49 K/ L 1.32-3.57 L (BEAKER) (test code = 414) MONOCYTES ABSOLUTE COUNT (BEAKER) 0.34 K/ L 0.30-0.82 (test code = 415) EOSINOPHILS ABSOLUTE COUNT 0.07 K/ L 0.04-0.54 (BEAKER) (test code = 416) BASOPHILS ABSOLUTE COUNT (BEAKER) 0.03 K/ L 0.01-0.08 (test code = 417) IMMATURE GRANULOCYTES-RELATIVE 0 % 0-1 PERCENT (BEAKER) (test code = 2801) [id number] 07:54:00 Test Item Value Reference Range Interpretation Comments MAGNESIUM (BEAKER) (test code = 1.7 mg/dL 1.6-2.6 627) BASIC METABOLIC [id number] 07:54:00 Test Item Value Reference Range Interpretation Comments SODIUM (BEAKER) 140 meq/L 136-145 (test code = 381) POTASSIUM (BEAKER) 4.6 meq/L 3.5-5.1 (test code = 379) CHLORIDE (BEAKER) 109 meq/L 98-107 H (test code = 382) CO2 (BEAKER) (test 24 meq/L 22-29 code = 355) BLOOD UREA NITROGEN 30 mg/dL 7-21 H (BEAKER) (test code = 354) CREATININE (BEAKER) 1.77 mg/dL 0.57-1.25 H (test code = 358) GLUCOSE RANDOM 94 mg/dL 70-105 (BEAKER) (test code = 652) CALCIUM (BEAKER) 9.0 mg/dL 8.4-10.2 (test code = 697) EGFR (BEAKER) (test 39 mL/min/1.73 ESTIMA ROBERTA GFR IS code = 1092) sq m NOT ACCURATE CREATININE CLEARANCE IN PREDICTING GLOMERULAR FILTRATION RATE . ESTIMATED GFR I S NOT APPLICABLE FOR DIALYSIS PATIEN TS. FUNGUS CULTURE + [id number] 13:47:00 Test Item Value Reference Range Interpretation Comments CULTURE (BEAKER) A <1+ Jane (test code = 1095) [place] FUNGUS SMEAR No fungi seen (BEAKER) (test code = 1406) TACROLIMUS [id number] 12:34:00 Test Item Value Reference Range Interpretation Comments TACROLIMUS BLOOD (BEAKER) (test 3.3 ng/mL 10.0-20.0 L code = 657) RAD, BONE DENSITY [id number] 12:09:00Reason for Exam:->terminal supervisor use of prednisoneReason for Exam:->s/p lung transplantFINAL [...] density is 0.649 gm/cm2, the T-score is -3.2, and the Z-score is -1.7. The lumbar spine total bone mineral density is 0.887 gm/cm2, the T-score is -2.9, and the Z-score is -1.7. Signed: Damari Ocampo MDReport Verified Date/Time: 06/05/2018 12:09:02 Reading Location: [facility] Mammo Reading Room IMMUNOGLOBULIN A (IGA)2018-06-05 11:42:00 Test Item Value Reference Range Interpretation Comments IMMUNOGLOBULIN A (IGA) (BEAKER) (test < mg/dL 63-484 L code = 639) IMMUNOGLOBULIN M (IGM)2018-06-05 11:42:00 Test Item Value Reference Range Interpretation Comments IMMUNOGLOBULIN M (IGM) (BEAKER) (test < mg/dL 22-293 L code = 638) IMMUNOGLOBULIN G (IGG)2018-06-05 11:42:00 Test Item Value Reference Range Interpretation Comments IMMUNOGLOBULIN G (IGG) (BEAKER) (test < mg/dL 540-1,822 L code = 427) [id number] 11:15:00 Test Item Value Reference Range Interpretation Comments MAGNESIUM (BEAKER) (test code = 1.6 mg/dL 1.6-2.6 627) BASIC METABOLIC [id number] 11:15:00 Test Item Value Reference Range Interpretation Comments SODIUM (BEAKER) 142 meq/L 136-145 (test code = 381) POTASSIUM (BEAKER) 4.5 meq/L 3.5-5.1 (test code = 379) CHLORIDE (BEAKER) 110 meq/L 98-107 H (test code = 382) CO2 (BEAKER) (test 25 meq/L 22-29 code = 355) BLOOD UREA NITROGEN 35 mg/dL 7-21 H (BEAKER) (test code = 354) CREATININE (BEAKER) 1.62 mg/dL 0.57-1.25 H (test code = 358) GLUCOSE RANDOM 91 mg/dL 70-105 (BEAKER) (test code = 652) CALCIUM (BEAKER) 9.5 mg/dL 8.4-10.2 (test code = 697) EGFR (BEAKER) (test 44 mL/min/1.73 ESTIMA ROBERTA GFR IS code = 1092) sq m NOT ACCURATE CREATININE CLEARANCE IN PREDICTING GLOMERULAR FILTRATION RATE . ESTIMATED GFR I S NOT APPLICABLE FOR DIALYSIS PATIEN TS. CBC W/PLT COUNT & AUTO [id number] 11:12:00 Test Item Value Reference Range Interpretation Comments WHITE BLOOD CELL COUNT (BEAKER) 4.0 K/ L 3.5-10.5 (test code = 775) RED BLOOD CELL COUNT (BEAKER) 2.91 M/ L 4.63-6.08 L (test code = 761) HEMOGLOBIN (BEAKER) (test code = 8.8 GM/DL 13.7-17.5 L 410) HEMATOCRIT (BEAKER) (test code = 27.7 % 40.1-51.0 L 411) MEAN CORPUSCULAR VOLUME (BEAKER) 95.2 fL 79.0-92.2 H (test code = 753) MEAN CORPUSCULAR HEMOGLOBIN 30.2 pg 25.7-32.2 (BEAKER) (test code = 751) MEAN CORPUSCULAR HEMOGLOBIN CONC 31.8 GM/DL 32.3-36.5 L (BEAKER) (test code = 752) RED CELL DISTRIBUTION WIDTH 16.1 % 11.6-14.4 H (BEAKER) (test code = 412) PLATELET COUNT (BEAKER) (test code 78 K/CU MM 150-450 L = 756) MEAN PLATELET VOLUME (BEAKER) 10.7 fL 9.4-12.4 (test code = 754) NUCLEATED RED BLOOD CELLS (BEAKER) 0 /100 WBC 0-0 (test code = 413) NEUTROPHILS RELATIVE PERCENT 81 % (BEAKER) (test code = 429) LYMPHOCYTES RELATIVE PERCENT 10 % (BEAKER) (test code = 430) MONOCYTES RELATIVE PERCENT 7 % (BEAKER) (test code = 431) EOSINOPHILS RELATIVE PERCENT 2 % (BEAKER) (test code = 432) BASOPHILS RELATIVE PERCENT 1 % (BEAKER) (test code = 437) NEUTROPHILS ABSOLUTE COUNT 3.23 K/ L 1.78-5.38 (BEAKER) (test code = 670) LYMPHOCYTES ABSOLUTE COUNT 0.40 K/ L 1.32-3.57 L (BEAKER) (test code = 414) MONOCYTES ABSOLUTE COUNT (BEAKER) 0.26 K/ L 0.30-0.82 L (test code = 415) EOSINOPHILS ABSOLUTE COUNT 0.06 K/ L 0.04-0.54 (BEAKER) (test code = 416) BASOPHILS ABSOLUTE COUNT (BEAKER) 0.04 K/ L 0.01-0.08 (test code = 417) IMMATURE GRANULOCYTES-RELATIVE 0 % 0-1 PERCENT (BEAKER) (test code = 2801) SPUTUM CULTURE + GRAM [id number] 19:04:00 Test Item Value Reference Range Interpretation Comments CULTURE (BEAKER) 4+ Normal respiratory (test code = 1095) tre present GRAM STAIN RESULT 1+ WBCs (BEAKER) (test code = 1123) GRAM STAIN RESULT 0-5 epithelial cells (BEAKER) (test code = 08272) GRAM STAIN RESULT 1+ gram negative rods (BEAKER) (test code = 31829) GRAM STAIN RESULT 3+ gram positive rods (BEAKER) (test code = 287773) SPIN/CONCENTRATION [id number] 00:19:00 Test Item Value Reference Range Interpretation Comments CONCENTRATION CHARGED (BEAKER) (test Done code = 2657) CMV PCR, [id number] 14:39:00 Test Item Value Reference Range Interpretation Comments CMV VIRAL LOAD - Negative or below the NEGATIVE (BEAKER) (test linear range of the code = 2558) assay (<375 copies/mL) Cytomegalovirus (CMV) infection can [...] viral load canbe evaluated by identifying a 10-fold change, as well as assessing the CMV DNA viral load and the clinical context for each patient.The plasma CMV DNA viral load was detected using quantitative polymerase chain reaction and fluorescent monitoring of a specific hybridized probe. Genetic variation and ot her factors can affect the accuracy of nucleic acid testing. Therefore, the results should be interpreted in light of clinical data. A negative result may not exclude the presence of CMV disease.This test was developed and its performance characteristics determined by the [facility] Path ology Department, Section of Molecular Pathology. It has not been cleared or approved by the U.S. Food and Drug Administration (FDA), since FDA approval is not required for clinical use of the test. Validation was done as required by The Clinical Laboratory Improvement Amendments of 1988.TACROLIMUS LEVEL 2018-05-29 14:31:00 Test Item Value Reference Range Interpretation Comments TACROLIMUS BLOOD (BEAKER) (test 13.0 ng/mL 10.0-20.0 code = 657) RESPIRATORY PANEL [id number] 12:51:00 Test Item Value Reference Range Interpretation Comments HUMAN METAPNEUMOVIRUS Not detected Not detected, (BEAKER) (test code = Equivocal 2683) RHINOVIRUS (BEAKER) Detected Not detected, A Assay i s not able (test code = 2684) Equivocal different iate between Human Rhinovirus and Enterovirus.Yo plet isolation. Cont act isolation if yo kike infants. Consid er stopping antibiotics. INFLUENZA A (BEAKER) Not detected Not detected, (test code = 2685) Equivocal INFLUENZA A (NO Not detected, SUBTYPE) (test code = Equivocal 3606) INFLUENZA A SUBTYPE H1 Not detected, (BEAKER) (test code = Equivocal 2686) INFLUENZA A SUBTYPE H3 Not detected, (BEAKER) (test code = Equivocal 2687) INFLUENZA A SUBTYPE Not detected, H1-2009 (BEAKER) (test Equivocal code = 3198) INFLUENZA B (BEAKER) Not detected Not detected, (test code = 2688) Equivocal RESPIRATORY SYNCYTIAL Not detected Not detected, VIRUS (BEAKER) (test Equivocal code = 3199) PARAINFLUENZA VIRUS 1 Not detected Not detected, (BEAKER) (test code = Equivocal 2691) PARAINFLUENZA VIRUS 2 Not detected Not detected, (BEAKER) (test code = Equivocal 2692) PARAINFLUENZA VIRUS 3 Not detected Not detected, (BEAKER) (test code = Equivocal 2693) PARAINFLUENZA VIRUS 4 Not detected Not detected, (BEAKER) (test code = Equivocal 3200) ADENOVIRUS (BEAKER) Not detected Not detected, (test code = 2694) Equivocal CORONAVIRUS 229E Not detected Not detected, (BEAKER) (test code = Equivocal 3201) CORONAVIRUS HKU1 Not detected Not detected, (BEAKER) (test code = Equivocal 3202) CORONAVIRUS NL63 Not detected Not detected, (BEAKER) (test code = Equivocal 3203) CORONAVIRUS OC43 Not detected Not detected, (BEAKER) (test code = Equivocal 3204) BORDETELLA PERTUSSIS Not detected Not detected, (BEAKER) (test code = Equivocal 3205) CHLAMYDOPHILA Not detected Not detected, PNEUMONIAE (BEAKER) Equivocal (test code = 3206) MYCOPLASMA PNEUMONIAE Not detected Not detected, (BEAKER) (test code = Equivocal 3207) Other viruses and bacteria not targeted by [...] [facility] Molecular Diagnostics Laboratory using the [employer] Respiratory Panel. It is FDA cleared and has been verified and approved by the [facility] Molecular Diagnostics Laboratory for clinical use on nasal swab specimens. It is not FDA-cleared for use on bronchial wash/lavage samples. However, for this sample type, validation was performed and test characteristics were determined and approved, by [facility] Molecular Diagnostics laboratory for clinical use under the Clinical Laboratory Improvement Amendments (CLIA) of 1988 requirements. Therefore, FDA clearance isnot required. This laboratory is CLIA-certified and [employer] ([employer])-accredited to perform high complexity testing.HEMOGLOBIN [id number] 10:37:00 Test Item Value Reference Range Interpretation Comments HEMOGLOBIN A1C (BEAKER) (test code = 4.5 % 4.3-6.1 368) CREATININE, RANDOM [id number] 09:55:00 Test Item Value Reference Range Interpretation Comments CREATININE URINE (BEAKER) (test 195.0 mg/dL code = 375) Reference Range: No NormalsPROTEIN, RANDOM [id number] 09:55:00 Test Item Value Reference Range Interpretation Comments PROTEIN, URINE (BEAKER) (test code = 18 mg/dL 0-14 H 1569) MICROALBUMIN, RANDOM [id number] 09:55:00 Test Item Value Reference Range Interpretation Comments MICROALBUMIN URINE (BEAKER) (test 1.5 mg/dL code = 1794) Reference Range: No NormalsRAD, CHEST, 2 [id number] 09:22:00Reason for Exam:->s/p lung transplantFINAL REPORT INDICATION: s/p lung transplant COMPARISON: February 05, 2018 TECHNIQUE: Frontal and lateral views of the chest. FINDINGS: Lungs and pleura: Clear lungs. Small posterior fusions bilaterally.Heart and mediastinum: Normal heart size. Stable surgical changes.Osseous structures: No acute abnormality.Additional findings: None. IMPRESSION: No acute intrathoracic abnormality. Signed: JR Rizzo Robert MDReport Verified Date/Time: 05/29/2018 09:22:59 [facility] [id number] 09:10:00 Test Item Value Reference Range Interpretation Comments PROSTATE SPECIFIC ANTIGEN (BEAKER) 0.4 ng/mL 0.0-4.0 (test code = 844) MALES onlyHEPATITIS PANEL, [id number] 09:10:00 Test Item Value Reference Range Interpretation Comments HEPATITIS A IGM ANTIBODY (BEAKER) Nonreactive Nonreactive (test code = 498) HEPATITIS B CORE IGM ANTIBODY Nonreactive Nonreactive (BEAKER) (test code = 645) HEPATITIS C ANTIBODY (BEAKER) Nonreactive Nonreactive (test code = 367) HEPATITIS B SURFACE ANTIGEN (2) Nonreactive Nonreactive (BEAKER) (test code = 2585) MALES onlyVITAMIN D, [id number] 09:10:00 Test Item Value Reference Range Interpretation Comments VITAMIN D 25-OH (BEAKER) (test 26.8 ng/mL 6.6-49.9 code = 2764) Effective 04/10/2017: Reference Range ChangeNew: 6.6-49.9 ng/mL Previous: 13.0-47.8 ng/mLRecommended Vitamin D Target Range: 30.0-40.0 ng/mLMALES onlyHIV- 1 ANTIGEN WITH HIV-1/2 [id number] 09:10:00 Test Item Value Reference Range Interpretation Comments HIV-1 ANTIGEN WITH HIV 1\\T\\2 Nonreactive Nonreactive ANTIBODY (2) (BEAKER) (test code = 2586) MALES [id number] 08:48:00 Test Item Value Reference Range Interpretation Comments PHOSPHORUS (BEAKER) (test code = 3.2 mg/dL 2.3-4.7 604) COMPREHENSIVE METABOLIC [id number] 08:48:00 Test Item Value Reference Range Interpretation Comments TOTAL PROTEIN 5.9 gm/dL 6.0-8.3 L (BEAKER) (test code = 770) ALBUMIN (BEAKER) 4.2 g/dL 3.5-5.0 (test code = 1145) ALKALINE PHOSPHATASE 361 U/L 40-150 H (BEAKER) (test code = 346) BILIRUBIN TOTAL 0.8 mg/dL 0.2-1.2 (BEAKER) (test code = 377) SODIUM (BEAKER) (test 143 meq/L 136-145 code = 381) POTASSIUM (BEAKER) 5.1 meq/L 3.5-5.1 (test code = 379) CHLORIDE (BEAKER) 111 meq/L 98-107 H (test code = 382) CO2 (BEAKER) (test 23 meq/L 22-29 code = 355) BLOOD UREA NITROGEN 29 mg/dL 7-21 H (BEAKER) (test code = 354) CREATININE (BEAKER) 1.72 mg/dL 0.57-1.25 H (test code = 358) GLUCOSE RANDOM 95 mg/dL 70-105 (BEAKER) (test code = 652) CALCIUM (BEAKER) 9.5 mg/dL 8.4-10.2 (test code = 697) AST (SGOT) (BEAKER) 45 U/L 5-34 H (test code = 353) ALT (SGPT) (BEAKER) 49 U/L 6-55 (test code = 347) EGFR (BEAKER) (test 41 mL/min/1.73 ESTIMA ROBERTA GFR IS code = 1092) sq m NOT ACCURATE CREATININE CLEARANCE IN PREDICTING GLOMERULAR FILTRATION RATE . ESTIMATED GFR I S NOT APPLICABLE FOR DIALYSIS PATIEN TS. LIPID [id number] 08:48:00 Test Item Value Reference Range Interpretation Comments TRIGLYCERIDES (BEAKER) (test code = 61 mg/dL 540) CHOLESTEROL (BEAKER) (test code = 119 mg/dL 631) HDL CHOLESTEROL (BEAKER) (test code 37 mg/dL = 976) LDL CHOLESTEROL CALCULATED (BEAKER) 70 mg/dL (test code = 633) Triglyceride Reference Range: Low Risk <150 Borderline 150-199 High Risk 200-499 Very High Risk >=500Cholesterol Reference Range: Low Risk <200 Borderline 200-239 High Risk >240HDL Cholesterol Reference Range: Low Risk >=60 High Risk <40LDL Cholesterol Reference Range: Optimal <100 Near Optimal 100-129 Borderline 130-159 High 160-189 Very High >=190LACTATE DEHYDROGENASE (LDH)2018-05-29 08:48:00 Test Item Value Reference Range Interpretation Comments LACTATE DEHYDROGENASE (BEAKER) (test 200 U/L 125-220 code = 635) CBC W/PLT COUNT & AUTO [id number] 08:30:00 Test Item Value Reference Range Interpretation Comments WHITE BLOOD CELL COUNT (BEAKER) 4.3 K/ L 3.5-10.5 (test code = 775) RED BLOOD CELL COUNT (BEAKER) 3.15 M/ L 4.63-6.08 L (test code = 761) HEMOGLOBIN (BEAKER) (test code = 9.3 GM/DL 13.7-17.5 L 410) HEMATOCRIT (BEAKER) (test code = 29.8 % 40.1-51.0 L 411) MEAN CORPUSCULAR VOLUME (BEAKER) 94.6 fL 79.0-92.2 H (test code = 753) MEAN CORPUSCULAR HEMOGLOBIN 29.5 pg 25.7-32.2 (BEAKER) (test code = 751) MEAN CORPUSCULAR HEMOGLOBIN CONC 31.2 GM/DL 32.3-36.5 L (BEAKER) (test code = 752) RED CELL DISTRIBUTION WIDTH 16.9 % 11.6-14.4 H (BEAKER) (test code = 412) PLATELET COUNT (BEAKER) (test code 98 K/CU MM 150-450 L = 756) MEAN PLATELET VOLUME (BEAKER) 10.1 fL 9.4-12.4 (test code = 754) NUCLEATED RED BLOOD CELLS (BEAKER) 0 /100 WBC 0-0 (test code = 413) NEUTROPHILS RELATIVE PERCENT 73 % (BEAKER) (test code = 429) LYMPHOCYTES RELATIVE PERCENT 17 % (BEAKER) (test code = 430) MONOCYTES RELATIVE PERCENT 6 % (BEAKER) (test code = 431) EOSINOPHILS RELATIVE PERCENT 3 % (BEAKER) (test code = 432) BASOPHILS RELATIVE PERCENT 1 % (BEAKER) (test code = 437) NEUTROPHILS ABSOLUTE COUNT 3.13 K/ L 1.78-5.38 (BEAKER) (test code = 670) LYMPHOCYTES ABSOLUTE COUNT 0.72 K/ L 1.32-3.57 L (BEAKER) (test code = 414) MONOCYTES ABSOLUTE COUNT (BEAKER) 0.27 K/ L 0.30-0.82 L (test code = 415) EOSINOPHILS ABSOLUTE COUNT 0.12 K/ L 0.04-0.54 (BEAKER) (test code = 416) BASOPHILS ABSOLUTE COUNT (BEAKER) 0.03 K/ L 0.01-0.08 (test code = 417) IMMATURE GRANULOCYTES-RELATIVE 0 % 0-1 PERCENT (BEAKER) (test code = 2801) AFB CULTURE + [id number] 17:58:00 Test Item Value Reference Range Interpretation Comments CULTURE (BEAKER) (test No acid-fast bacilli code = 1095) isolated in 42 days AFB SMEAR (BEAKER) No acid fast bacilli (test code = 994) seen BODY FLUID CULTURE + GRAM [id number] 18:20:00 Test Item Value Reference Range Interpretation Comments CULTURE (BEAKER) (test code No growth = 1095) GRAM STAIN RESULT (BEAKER) <1+ WBCs (test code = 1123) GRAM STAIN RESULT (BEAKER) No organisms seen (test code = 81924) CBC W/PLT COUNT & AUTO [id number] 11:48:00 Test Item Value Reference Range Interpretation Comments WHITE BLOOD CELL COUNT (BEAKER) 1.9 K/ L 3.5-10.5 L (test code = 775) RED BLOOD CELL COUNT (BEAKER) 2.39 M/ L 4.63-6.08 L (test code = 761) HEMOGLOBIN (BEAKER) (test code = 7.0 GM/DL 13.7-17.5 L 410) HEMATOCRIT (BEAKER) (test code = 22.8 % 40.1-51.0 L 411) MEAN CORPUSCULAR VOLUME (BEAKER) 95.4 fL 79.0-92.2 H (test code = 753) MEAN CORPUSCULAR HEMOGLOBIN 29.3 pg 25.7-32.2 (BEAKER) (test code = 751) MEAN CORPUSCULAR HEMOGLOBIN CONC 30.7 GM/DL 32.3-36.5 L (BEAKER) (test code = 752) RED CELL DISTRIBUTION WIDTH 15.7 % 11.6-14.4 H (BEAKER) (test code = 412) PLATELET COUNT (BEAKER) (test code 78 K/CU MM 150-450 L = 756) MEAN PLATELET VOLUME (BEAKER) 9.7 fL 9.4-12.4 (test code = 754) NUCLEATED RED BLOOD CELLS (BEAKER) 0 /100 WBC 0-0 (test code = 413) (CELLAVISION MANUAL DIFF)2018-02-06 11:48:00 Test Item Value Reference Range Interpretation Comments NEUTROPHILS - REL 64 % (CELLAVISION)(BEAKER) (test code = 2816) LYMPHOCYTES - REL 30 % (CELLAVISION)(BEAKER) (test code = 2817) MONOCYTES - REL 4 % (CELLAVISION)(BEAKER) (test code = 2818) EOSINOPHILS - REL 1 % (CELLAVISION)(BEAKER) (test code = 2819) BASOPHILS - REL 1 % (CELLAVISION)(BEAKER) (test code = 2820) NEUTROPHILS - ABS 1.22 K/ul 1.78-5.38 L (CELLAVISION)(BEAKER) (test code = 2830) LYMPHOCYTES - ABS 0.57 K/ul 1.32-3.57 L (CELLAVISION)(BEAKER) (test code = 2831) MONOCYTES - ABS 0.08 K/uL 0.30-0.82 L (CELLAVISION)(BEAKER) (test code = 2832) EOSINOPHILS - ABS 0.02 K/uL 0.04-0.54 L (CELLAVISION)(BEAKER) (test code = 2834) BASOPHILS - ABS 0.02 K/uL 0.01-0.08 (CELLAVISION)(BEAKER) (test code = 2835) TOTAL COUNTED (BEAKER) (test code 100 = 1351) WBC MORPHOLOGY (BEAKER) (test Normal code = 487) PLT MORPHOLOGY (BEAKER) (test Normal code = 486) ANISOCYTOSIS (BEAKER) (test code 2+ moderate = 961) POIKILOCYTES (BEAKER) (test code 2+ moderate = 966) ARTIFACT (CELLAVISION)(BEAKER) Present (test code = 3432) PLATELET CONCENTRATION Decreased (CELLAVISION)(BEAKER) (test code = 3438) Received comment: User comments: Slide comments:TACROLIMUS [id number] 09:58:00 Test Item Value Reference Range Interpretation Comments TACROLIMUS BLOOD (BEAKER) (test 5.3 ng/mL 10.0-20.0 L code = 657) POCT-GLUCOSE [id number] 08:33:00 Test Item Value Reference Range Interpretation Comments POC-GLUCOSE METER 100 mg/dL 70-110 TESTED AT [facility] [address] (BEAKER) (test code = [place] 1538) [address] [id number] 07:13:00 Test Item Value Reference Range Interpretation Comments MAGNESIUM (BEAKER) (test code = 1.6 mg/dL 1.6-2.6 627) COMPREHENSIVE METABOLIC [id number] 07:13:00 Test Item Value Reference Range Interpretation Comments TOTAL PROTEIN 4.6 gm/dL 6.0-8.3 L (BEAKER) (test code = 770) ALBUMIN (BEAKER) 3.2 g/dL 3.5-5.0 L (test code = 1145) ALKALINE PHOSPHATASE 445 U/L 40-150 H (BEAKER) (test code = 346) BILIRUBIN TOTAL 0.7 mg/dL 0.2-1.2 (BEAKER) (test code = 377) SODIUM (BEAKER) (test 137 meq/L 136-145 code = 381) POTASSIUM (BEAKER) 4.9 meq/L 3.5-5.1 (test code = 379) CHLORIDE (BEAKER) 109 meq/L 98-107 H (test code = 382) CO2 (BEAKER) (test 20 meq/L 22-29 L code = 355) BLOOD UREA NITROGEN 20 mg/dL 7-21 (BEAKER) (test code = 354) CREATININE (BEAKER) 1.09 mg/dL 0.57-1.25 (test code = 358) GLUCOSE RANDOM 88 mg/dL 70-105 (BEAKER) (test code = 652) CALCIUM (BEAKER) 8.4 mg/dL 8.4-10.2 (test code = 697) AST (SGOT) (BEAKER) 30 U/L 5-34 (test code = 353) ALT (SGPT) (BEAKER) 28 U/L 6-55 (test code = 347) EGFR (BEAKER) (test 69 mL/min/1.73 ESTIMA ROBERTA GFR IS code = 1092) sq m NOT ACCURATE CREATININE CLEARANCE IN PREDICTING GLOMERULAR FILTRATION RATE . ESTIMATED GFR I S NOT APPLICABLE FOR DIALYSIS PATIEN TS. BODY FLUID CELL COUNT WITH [id number] 17:27:00 Test Item Value Reference Range Interpretation Comments APPEARANCE FLUID (BEAKER) (test Cloudy Clear A code = 510) COLOR FLUID (BEAKER) (test code = Yellow Colorless, Straw A 511) RBC FLUID (BEAKER) (test code = 90 /cu mm <=1 H 513) ADJUSTED WBC FLUID (BEAKER) (test 250 /cu mm <=5 H code = 1691) LINING CELLS (BEAKER) (test code 0 /cu mm <=1 = 1590) NEUTROPHILS FLUID (BEAKER) (test 20 % code = 1656) LYMPHS FLUID (BEAKER) (test code 70 % = 488) MONO/MACROPHAGE FLUID (BEAKER) 10 % (test code = 489) EOSINOPHILS FLUID (BEAKER) (test 0 % code = 491) BASO FLUID (BEAKER) (test code = 0 % 492) CONTAINER BODY FLUID (BEAKER) EDTA Tube (test code = 2873) PROTEIN, BODY [id number] 17:03:00 Test Item Value Reference Range Interpretation Comments PROTEIN FLUID (BEAKER) (test code = 1.2 g/dL 579) Absence of reference range indicates that normals have not been defined.Assay performance has not been validated for this type of specimen.ascitesascites GLUCOSE, BODY [id number] 17:03:00 Test Item Value Reference Range Interpretation Comments GLUCOSE, BODY FLUID (BEAKER) (test 92 mg/dL code = 1528) Absence of reference range indicates that normals have not been defined.Assay performance has not been validated for this type of specimen.ascitesascites TACROLIMUS [id number] 15:07:00 Test Item Value Reference Range Interpretation Comments TACROLIMUS BLOOD (BEAKER) (test 7.7 ng/mL 10.0-20.0 L code = 657) VITAMIN B12 AND [id number] 14:40:00 Test Item Value Reference Range Interpretation Comments VITAMIN B12 (BEAKER) (test code = 714 pg/mL 213-816 774) FOLATE (BEAKER) (test code = 362) 13.4 ng/mL >=7.0 IMMUNOGLOBULIN G (IGG)2018-02-05 14:19:00 Test Item Value Reference Range Interpretation Comments IMMUNOGLOBULIN G (IGG) (BEAKER) 133 mg/dL 540-1822 L (test code = 427) POCT-GLUCOSE [id number] 13:31:00 Test Item Value Reference Range Interpretation Comments POC-GLUCOSE METER 149 mg/dL 70-110 H TESTED AT [facility] 67[address] (BEAKER) (test code = PAR[place] 1538) [address] U/S, [id number] 11:08:00Reason for exam:->ABDOMINAL PAINFINAL REPORT HISTORY : [...] skin and deep soft tissues. A 5 Chinese multi-sidehole catheter was inserted and removed from the peritoneal space and approximately 3.1 liters of clear yellow fluid was aspirated from the abdomen. Specimens were collected for the lab. There were no immediate complications. Impression: Successful ultrasound guided paracentesis with aspiration of 3.1 liters of fluid. Signed: Javed Paez [facility]epmer[facility] Verified Date/Time: 02/05/2018 11:08:13 Reading Location: [address] Ultrasound Reading Room Electronically signedby: JAVED PAEZ MD on 02/05/2018 11:08 AMCBC W/PLT COUNT & AUTO [id number] 09:16:00 Test Item Value Reference Range Interpretation Comments WHITE BLOOD CELL COUNT (BEAKER) 2.6 K/ L 3.5-10.5 L (test code = 775) RED BLOOD CELL COUNT (BEAKER) 2.44 M/ L 4.63-6.08 L (test code = 761) HEMOGLOBIN (BEAKER) (test code = 7.3 GM/DL 13.7-17.5 L 410) HEMATOCRIT (BEAKER) (test code = 23.8 % 40.1-51.0 L 411) MEAN CORPUSCULAR VOLUME (BEAKER) 97.5 fL 79.0-92.2 H (test code = 753) MEAN CORPUSCULAR HEMOGLOBIN 29.9 pg 25.7-32.2 (BEAKER) (test code = 751) MEAN CORPUSCULAR HEMOGLOBIN CONC 30.7 GM/DL 32.3-36.5 L (BEAKER) (test code = 752) RED CELL DISTRIBUTION WIDTH 15.9 % 11.6-14.4 H (BEAKER) (test code = 412) PLATELET COUNT (BEAKER) (test code 82 K/CU MM 150-450 L = 756) MEAN PLATELET VOLUME (BEAKER) 10.1 fL 9.4-12.4 (test code = 754) NUCLEATED RED BLOOD CELLS (BEAKER) 0 /100 WBC 0-0 (test code = 413) NEUTROPHILS RELATIVE PERCENT 53 % (BEAKER) (test code = 429) LYMPHOCYTES RELATIVE PERCENT 35 % (BEAKER) (test code = 430) MONOCYTES RELATIVE PERCENT 9 % (BEAKER) (test code = 431) EOSINOPHILS RELATIVE PERCENT 2 % (BEAKER) (test code = 432) BASOPHILS RELATIVE PERCENT 0 % (BEAKER) (test code = 437) NEUTROPHILS ABSOLUTE COUNT 1.38 K/ L 1.78-5.38 L (BEAKER) (test code = 670) LYMPHOCYTES ABSOLUTE COUNT 0.91 K/ L 1.32-3.57 L (BEAKER) (test code = 414) MONOCYTES ABSOLUTE COUNT (BEAKER) 0.24 K/ L 0.30-0.82 L (test code = 415) EOSINOPHILS ABSOLUTE COUNT 0.04 K/ L 0.04-0.54 (BEAKER) (test code = 416) BASOPHILS ABSOLUTE COUNT (BEAKER) 0.01 K/ L 0.01-0.08 (test code = 417) IMMATURE GRANULOCYTES-RELATIVE 0 % 0-1 PERCENT (BEAKER) (test code = 2801) TROPONIN [id number] 09:11:00 Test Item Value Reference Range Interpretation Comments TROPONIN I (BEAKER) (test code = 397) < ng/mL 0.00-0.03 Troponin I (TnI) levels [...] disease, and persistent tachyarrhythmia.B-TYPE NATRIURETIC FACTOR (BNP) 2018-02-05 09:10:00 Test Item Value Reference Range Interpretation Comments B-TYPE NATRIURETIC PEPTIDE (BEAKER) 353 pg/mL 0-100 H (test code = 700) [id number] 09:04:00 Test Item Value Reference Range Interpretation Comments MAGNESIUM (BEAKER) (test code = 1.7 mg/dL 1.6-2.6 627) BASIC METABOLIC [id number] 09:04:00 Test Item Value Reference Range Interpretation Comments SODIUM (BEAKER) 140 meq/L 136-145 (test code = 381) POTASSIUM (BEAKER) 4.8 meq/L 3.5-5.1 (test code = 379) CHLORIDE (BEAKER) 111 meq/L 98-107 H (test code = 382) CO2 (BEAKER) (test 23 meq/L 22-29 code = 355) BLOOD UREA NITROGEN 21 mg/dL 7-21 (BEAKER) (test code = 354) CREATININE (BEAKER) 1.17 mg/dL 0.57-1.25 (test code = 358) GLUCOSE RANDOM 83 mg/dL 70-105 (BEAKER) (test code = 652) CALCIUM (BEAKER) 8.9 mg/dL 8.4-10.2 (test code = 697) EGFR (BEAKER) (test 64 mL/min/1.73 ESTIMA ROBERTA GFR IS code = 1092) sq m NOT ACCURATE CREATININE CLEARANCE IN PREDICTING GLOMERULAR FILTRATION RATE . ESTIMATED GFR I S NOT APPLICABLE FOR DIALYSIS PATIEN TS. HEPATIC FUNCTION [id number] 09:04:00 Test Item Value Reference Range Interpretation Comments TOTAL PROTEIN (BEAKER) (test code = 4.9 gm/dL 6.0-8.3 L 770) ALBUMIN (BEAKER) (test code = 1145) 3.3 g/dL 3.5-5.0 L BILIRUBIN TOTAL (BEAKER) (test code 0.5 mg/dL 0.2-1.2 = 377) BILIRUBIN DIRECT (BEAKER) (test 0.3 mg/dL 0.1-0.5 code = 706) ALKALINE PHOSPHATASE (BEAKER) (test 480 U/L 40-150 H code = 346) AST (SGOT) (BEAKER) (test code = 39 U/L 5-34 H 353) ALT (SGPT) (BEAKER) (test code = 38 U/L 6-55 347) [id number] 09:04:00 Test Item Value Reference Range Interpretation Comments AMYLASE (BEAKER) (test code = 349) 79 U/L 25-125 [id number] 09:04:00 Test Item Value Reference Range Interpretation Comments LIPASE (BEAKER) (test code = 749) 36 U/L 8-78 [id number] 08:54:00 Test Item Value Reference Range Interpretation Comments PROTIME (BEAKER) (test code = 16.7 seconds 11.7-14.7 H 759) INR (BEAKER) (test code = 370) 1.4 <=5.9 PARTIAL THROMBOPLASTIN TIME 34.6 seconds 22.5-36.0 (BEAKER) (test code = 760) RECOMMENDED COUMADIN/WARFARIN INR THERAPY RANGESSTANDARD DOSE: 2.0 - 3.0 Includes: PROPHYLAXIS forvenous thrombosis, systemic embolization; TREATMENT for venous thrombosis and/or pulmonary embolus.HIGH RISK: Target INR is 2.5-3.5 for patients with mechanical heart valves.RAD, CHEST, 1 VIEW, NON [id number] 07:45:00Reason for exam:->chest painFINAL REPORT Chest one view AP 02/05/2018 7:45 AM CLINICAL INDICATION: chest pain COMPARISON: 01/13/2018 IMPRESSION: There are trace bilateral pleural effusions with adjacent basilar atelectasis. Cardiomediastinal contours are within normal limits. The central pulmonary vasculatureis not engorged. Sternotomy wires remain midline. Signed: Bryce Craven Verified Date/Time: 02/05/2018 07:45:26 Reading Location: [facility] C013V Neuro Reading Room FUNGUS CULTURE + [id number] 12:31:00 Test Item Value Reference Range Interpretation Comments CULTURE (BEAKER) (test No fungus isolated in code = 1095) 28 days FUNGUS SMEAR (BEAKER) No fungi seen (test code = 1406) VIRUS [id number] 12:15:00 Test Item Value Reference Range Interpretation Comments CULTURE (BEAKER) (test code No virus isolated = 1095) CMV PCR, [id number] 14:49:00 Test Item Value Reference Range Interpretation Comments CMV VIRAL LOAD - Negative or below the NEGATIVE (BEAKER) (test linear range of the code = 2558) assay (<375 copies/mL) Cytomegalovirus (CMV) infection can [...] viral load canbe evaluated by identifying a 10-fold change, as well as assessing the CMV DNA viral load and the clinical context for each patient.The plasma CMV DNA viral load was detected using quantitative polymerase chain reaction and fluorescent monitoring of a specific hybridized probe. Genetic variation and ot her factors can affect the accuracy of nucleic acid testing. Therefore, the results should be interpreted in light of clinical data. A negative result may not exclude the presence of CMV disease.This test was developed and its performance characteristics determined by the [facility] Path ology Department, Section of Molecular Pathology. It has not been cleared or approved by the U.S. Food and Drug Administration (FDA), since FDA approval is not required for clinical use of the test. Validation was done as required by The Clinical Laboratory Improvement Amendments of 1988.TACROLIMUS LEVEL 2018-01-13 12:09:00 Test Item Value Reference Range Interpretation Comments TACROLIMUS BLOOD (KATELYNN) (test 3.9 ng/mL 10.0-20.0 L code = 657) POCT-GLUCOSE [id number] 11:51:00 Test Item Value Reference Range Interpretation Comments POC-GLUCOSE METER 121 mg/dL 70-110 H TESTED AT [facility] 67[address] (KATELYNN) (test code = [place] 1538) [address] RAD, CHEST, 1 VIEW, NON [id number] 08:39:00Reason for exam:->Follow-up respiratory failureShould this be performed at the bedside?->YesFINAL REPORT Chest one view compared to January 07, 2018 Discussion: Moderately improved bilateral airspace opacities. Right PICC line in place. No gross effusion or pneumothorax. Signed: Denilson Callejasjessica Verified Date/Time: 01/13/2018 08:39:15 Reading Location: [facility] Reading Room TIC FUNCTION [id number] 07:13:00 Test Item Value Reference Range Interpretation Comments TOTAL PROTEIN (BEAKER) (test code = 4.2 gm/dL 6.0-8.3 L 770) ALBUMIN (BEAKER) (test code = 1145) 2.8 g/dL 3.5-5.0 L BILIRUBIN TOTAL (BEAKER) (test code 1.1 mg/dL 0.2-1.2 = 377) BILIRUBIN DIRECT (BEAKER) (test 0.6 mg/dL 0.1-0.5 H code = 706) ALKALINE PHOSPHATASE (BEAKER) (test 241 U/L 40-150 H code = 346) AST (SGOT) (BEAKER) (test code = 56 U/L 5-34 H 353) ALT (SGPT) (BEAKER) (test code = 55 U/L 6-55 347) BASIC METABOLIC [id number] 07:13:00 Test Item Value Reference Range Interpretation Comments SODIUM (BEAKER) 142 meq/L 136-145 (test code = 381) POTASSIUM (BEAKER) 3.7 meq/L 3.5-5.1 (test code = 379) CHLORIDE (BEAKER) 109 meq/L 98-107 H (test code = 382) CO2 (BEAKER) (test 26 meq/L 22-29 code = 355) BLOOD UREA NITROGEN 54 mg/dL 7-21 H (BEAKER) (test code = 354) CREATININE (BEAKER) 1.25 mg/dL 0.57-1.25 (test code = 358) GLUCOSE RANDOM 76 mg/dL 70-105 (BEAKER) (test code = 652) CALCIUM (BEAKER) 8.3 mg/dL 8.4-10.2 L (test code = 697) EGFR (BEAKER) (test 59 mL/min/1.73 ESTIMA ROBERTA GFR IS code = 1092) sq m NOT ACCURATE CREATININE CLEARANCE IN PREDICTING GLOMERULAR FILTRATION RATE . ESTIMATED GFR I S NOT APPLICABLE FOR DIALYSIS PATIEN TS. [id number] 06:52:00 Test Item Value Reference Range Interpretation Comments PROTIME (BEAKER) (test code = 17.3 seconds 11.7-14.7 H 759) INR (BEAKER) (test code = 370) 1.4 <=5.9 PARTIAL THROMBOPLASTIN TIME 33.4 seconds 22.5-36.0 (BEAKER) (test code = 760) RECOMMENDED COUMADIN/WARFARIN INR THERAPY RANGESSTANDARD DOSE: 2.0 - 3.0 Includes: PROPHYLAXIS forvenous thrombosis, systemic embolization; TREATMENT for venous thrombosis and/or pulmonary embolus.HIGH RISK: Target INR is 2.5-3.5 for patients with mechanical heart valves.CBC W/PLT COUNT & AUTO DIFFERENTIAL 2018-01-13 06:45:00 Test Item Value Reference Range Interpretation Comments WHITE BLOOD CELL COUNT (BEAKER) 3.6 K/ L 3.5-10.5 (test code = 775) RED BLOOD CELL COUNT (BEAKER) 2.41 M/ L 4.63-6.08 L (test code = 761) HEMOGLOBIN (BEAKER) (test code = 7.3 GM/DL 13.7-17.5 L 410) HEMATOCRIT (BEAKER) (test code = 24.1 % 40.1-51.0 L 411) MEAN CORPUSCULAR VOLUME (BEAKER) 100.0 fL 79.0-92.2 H (test code = 753) MEAN CORPUSCULAR HEMOGLOBIN 30.3 pg 25.7-32.2 (BEAKER) (test code = 751) MEAN CORPUSCULAR HEMOGLOBIN CONC 30.3 GM/DL 32.3-36.5 L (BEAKER) (test code = 752) RED CELL DISTRIBUTION WIDTH 16.7 % 11.6-14.4 H (BEAKER) (test code = 412) PLATELET COUNT (BEAKER) (test code 95 K/CU MM 150-450 L = 756) MEAN PLATELET VOLUME (BEAKER) 11.3 fL 9.4-12.4 (test code = 754) NUCLEATED RED BLOOD CELLS (BEAKER) 0 /100 WBC 0-0 (test code = 413) NEUTROPHILS RELATIVE PERCENT 71 % (BEAKER) (test code = 429) LYMPHOCYTES RELATIVE PERCENT 19 % (BEAKER) (test code = 430) MONOCYTES RELATIVE PERCENT 7 % (BEAKER) (test code = 431) EOSINOPHILS RELATIVE PERCENT 1 % (BEAKER) (test code = 432) BASOPHILS RELATIVE PERCENT 1 % (BEAKER) (test code = 437) NEUTROPHILS ABSOLUTE COUNT 2.55 K/ L 1.78-5.38 (BEAKER) (test code = 670) LYMPHOCYTES ABSOLUTE COUNT 0.68 K/ L 1.32-3.57 L (BEAKER) (test code = 414) MONOCYTES ABSOLUTE COUNT (BEAKER) 0.26 K/ L 0.30-0.82 L (test code = 415) EOSINOPHILS ABSOLUTE COUNT 0.04 K/ L 0.04-0.54 (BEAKER) (test code = 416) BASOPHILS ABSOLUTE COUNT (BEAKER) 0.02 K/ L 0.01-0.08 (test code = 417) IMMATURE GRANULOCYTES-RELATIVE 1 % 0-1 PERCENT (BEAKER) (test code = 2801) POCT-GLUCOSE [id number] 22:11:00 Test Item Value Reference Range Interpretation Comments POC-GLUCOSE METER 165 mg/dL 70-110 H TESTED AT [facility] 6720 (AKER) (test code = PARESH Garcia [facility] 1538) [address] C. DIFFICILE GDH [id number] 16:06:00 Test Item Value Reference Range Interpretation Comments CDT TOXIN (test code Negative Negative = [id number]) CDT GDH ANTIGEN (test Negative Negative No ind ication of code = [id number]) Clostridi um difficile infection and n o colonization. Discontinue ent phyllis isolation and t herapy. Testing performed by [employer] Rapid Cassette Assay. For GDH, published sensitivity of the assay is 98.7% compared to cytotoxicity testing. For Toxin AB, published sensitivity is 87.8% and specificity 99.4% compared to cytotoxicity testing.Verification of kit performance was done by the [facility] Microbiology Lab prior to clinical use.TACROLIMUS [id number] 10:30:00 Test Item Value Reference Range Interpretation Comments TACROLIMUS BLOOD (BEAKER) (test 2.7 ng/mL 10.0-20.0 L code = 657) [id number] 07:37:00 Test Item Value Reference Range Interpretation Comments PHOSPHORUS (BEAKER) (test code = 4.1 mg/dL 2.3-4.7 604) BASIC METABOLIC [id number] 07:37:00 Test Item Value Reference Range Interpretation Comments SODIUM (BEAKER) 143 meq/L 136-145 (test code = 381) POTASSIUM (BEAKER) 4.0 meq/L 3.5-5.1 (test code = 379) CHLORIDE (BEAKER) 106 meq/L 98-107 (test code = 382) CO2 (BEAKER) (test 25 meq/L 22-29 code = 355) BLOOD UREA NITROGEN 65 mg/dL 7-21 H (BEAKER) (test code = 354) CREATININE (BEAKER) 1.39 mg/dL 0.57-1.25 H (test code = 358) GLUCOSE RANDOM 83 mg/dL 70-105 (BEAKER) (test code = 652) CALCIUM (BEAKER) 8.2 mg/dL 8.4-10.2 L (test code = 697) EGFR (BEAKER) (test 52 mL/min/1.73 ESTIMA ROBERTA GFR IS code = 1092) sq m NOT ACCURATE CREATININE CLEARANCE IN PREDICTING GLOMERULAR FILTRATION RATE . ESTIMATED GFR I S NOT APPLICABLE FOR DIALYSIS PATIEN TS. POCT-GLUCOSE [id number] 07:30:00 Test Item Value Reference Range Interpretation Comments POC-GLUCOSE METER 103 mg/dL 70-110 TESTED AT [facility] [address] ([facility]) (test code = [place] 1538) [id number] CBC W/PLT COUNT & AUTO [id number] 07:16:00 Test Item Value Reference Range Interpretation Comments WHITE BLOOD CELL COUNT (BEAKER) 4.0 K/ L 3.5-10.5 (test code = 775) RED BLOOD CELL COUNT (BEAKER) 2.51 M/ L 4.63-6.08 L (test code = 761) HEMOGLOBIN (BEAKER) (test code = 7.6 GM/DL 13.7-17.5 L 410) HEMATOCRIT (BEAKER) (test code = 25.1 % 40.1-51.0 L 411) MEAN CORPUSCULAR VOLUME (BEAKER) 100.0 fL 79.0-92.2 H (test code = 753) MEAN CORPUSCULAR HEMOGLOBIN 30.3 pg 25.7-32.2 (BEAKER) (test code = 751) MEAN CORPUSCULAR HEMOGLOBIN CONC 30.3 GM/DL 32.3-36.5 L (BEAKER) (test code = 752) RED CELL DISTRIBUTION WIDTH 16.9 % 11.6-14.4 H (BEAKER) (test code = 412) PLATELET COUNT (BEAKER) (test 102 K/CU MM 150-450 L code = 756) MEAN PLATELET VOLUME (BEAKER) 11.0 fL 9.4-12.4 (test code = 754) NUCLEATED RED BLOOD CELLS 0 /100 WBC 0-0 (BEAKER) (test code = 413) NEUTROPHILS RELATIVE PERCENT 74 % (BEAKER) (test code = 429) LYMPHOCYTES RELATIVE PERCENT 17 % (BEAKER) (test code = 430) MONOCYTES RELATIVE PERCENT 7 % (BEAKER) (test code = 431) EOSINOPHILS RELATIVE PERCENT 1 % (BEAKER) (test code = 432) BASOPHILS RELATIVE PERCENT 1 % (BEAKER) (test code = 437) NEUTROPHILS ABSOLUTE COUNT 2.98 K/ L 1.78-5.38 (BEAKER) (test code = 670) LYMPHOCYTES ABSOLUTE COUNT 0.67 K/ L 1.32-3.57 L (BEAKER) (test code = 414) MONOCYTES ABSOLUTE COUNT (BEAKER) 0.28 K/ L 0.30-0.82 L (test code = 415) EOSINOPHILS ABSOLUTE COUNT 0.03 K/ L 0.04-0.54 L (BEAKER) (test code = 416) BASOPHILS ABSOLUTE COUNT (BEAKER) 0.03 K/ L 0.01-0.08 (test code = 417) IMMATURE GRANULOCYTES-RELATIVE 1 % 0-1 PERCENT (BEAKER) (test code = 2801) POCT-GLUCOSE [id number] 21:04:00 Test Item Value Reference Range Interpretation Comments POC-GLUCOSE METER 161 mg/dL 70-110 H TESTED AT [facility] [address] (BEAKER) (test code = [place] 1538) [id number] TACROLIMUS [id number] 10:37:00 Test Item Value Reference Range Interpretation Comments TACROLIMUS BLOOD (BEAKER) (test 3.4 ng/mL 10.0-20.0 L code = 657) [id number] 07:21:00 Test Item Value Reference Range Interpretation Comments PHOSPHORUS (BEAKER) (test code = 5.3 mg/dL 2.3-4.7 H 604) BASIC METABOLIC [id number] 07:21:00 Test Item Value Reference Range Interpretation Comments SODIUM (BEAKER) 145 meq/L 136-145 (test code = 381) POTASSIUM (BEAKER) 3.9 meq/L 3.5-5.1 (test code = 379) CHLORIDE (BEAKER) 105 meq/L 98-107 (test code = 382) CO2 (BEAKER) (test 29 meq/L 22-29 code = 355) BLOOD UREA NITROGEN 78 mg/dL 7-21 H (BEAKER) (test code = 354) CREATININE (BEAKER) 1.74 mg/dL 0.57-1.25 H (test code = 358) GLUCOSE RANDOM 110 mg/dL 70-105 H (BEAKER) (test code = 652) CALCIUM (BEAKER) 7.8 mg/dL 8.4-10.2 L (test code = 697) EGFR (BEAKER) (test 40 mL/min/1.73 ESTIMA ROBERTA GFR IS code = 1092) sq m NOT ACCURATE CREATININE CLEARANCE IN PREDICTING GLOMERULAR FILTRATION RATE . ESTIMATED GFR I S NOT APPLICABLE FOR DIALYSIS PATIEN TS. CBC W/PLT COUNT & AUTO [id number] 07:03:00 Test Item Value Reference Range Interpretation Comments WHITE BLOOD CELL COUNT (BEAKER) 3.0 K/ L 3.5-10.5 L (test code = 775) RED BLOOD CELL COUNT (BEAKER) 2.53 M/ L 4.63-6.08 L (test code = 761) HEMOGLOBIN (BEAKER) (test code = 7.8 GM/DL 13.7-17.5 L 410) HEMATOCRIT (BEAKER) (test code = 25.3 % 40.1-51.0 L 411) MEAN CORPUSCULAR VOLUME (BEAKER) 100.0 fL 79.0-92.2 H (test code = 753) MEAN CORPUSCULAR HEMOGLOBIN 30.8 pg 25.7-32.2 (BEAKER) (test code = 751) MEAN CORPUSCULAR HEMOGLOBIN CONC 30.8 GM/DL 32.3-36.5 L (BEAKER) (test code = 752) RED CELL DISTRIBUTION WIDTH 17.3 % 11.6-14.4 H (BEAKER) (test code = 412) PLATELET COUNT (BEAKER) (test 109 K/CU MM 150-450 L code = 756) MEAN PLATELET VOLUME (BEAKER) 11.3 fL 9.4-12.4 (test code = 754) NUCLEATED RED BLOOD CELLS 0 /100 WBC 0-0 (BEAKER) (test code = 413) NEUTROPHILS RELATIVE PERCENT 69 % (BEAKER) (test code = 429) LYMPHOCYTES RELATIVE PERCENT 22 % (BEAKER) (test code = 430) MONOCYTES RELATIVE PERCENT 8 % (BEAKER) (test code = 431) EOSINOPHILS RELATIVE PERCENT 1 % (BEAKER) (test code = 432) BASOPHILS RELATIVE PERCENT 1 % (BEAKER) (test code = 437) NEUTROPHILS ABSOLUTE COUNT 2.08 K/ L 1.78-5.38 (BEAKER) (test code = 670) LYMPHOCYTES ABSOLUTE COUNT 0.66 K/ L 1.32-3.57 L (BEAKER) (test code = 414) MONOCYTES ABSOLUTE COUNT (BEAKER) 0.23 K/ L 0.30-0.82 L (test code = 415) EOSINOPHILS ABSOLUTE COUNT 0.03 K/ L 0.04-0.54 L (BEAKER) (test code = 416) BASOPHILS ABSOLUTE COUNT (BEAKER) 0.02 K/ L 0.01-0.08 (test code = 417) IMMATURE GRANULOCYTES-RELATIVE 0 % 0-1 PERCENT (BEAKER) (test code = 2801) POCT-GLUCOSE [id number] 17:24:00 Test Item Value Reference Range Interpretation Comments POC-GLUCOSE METER 178 mg/dL 70-110 H TESTED AT [place] [address] ([facility]) (test code = PARESH Garcia [facility] 1538) [address] TACROLIMUS [id number] 12:24:00 Test Item Value Reference Range Interpretation Comments TACROLIMUS BLOOD ([facility]) (test 4.3 ng/mL 10.0-20.0 L code = 657) POCT-GLUCOSE [id number] 09:17:00 Test Item Value Reference Range Interpretation Comments POC-GLUCOSE METER 162 mg/dL 70-110 H TESTED AT [facility] 6720 ([facility]) (test code = PARESH Garcia [facility] 1538) [address] CBC W/PLT COUNT & AUTO [id number] 07:36:00 Test Item Value Reference Range Interpretation Comments WHITE BLOOD CELL COUNT (BEAKER) 4.9 K/ L 3.5-10.5 (test code = 775) RED BLOOD CELL COUNT (BEAKER) 2.47 M/ L 4.63-6.08 L (test code = 761) HEMOGLOBIN (BEAKER) (test code = 7.7 GM/DL 13.7-17.5 L 410) HEMATOCRIT (BEAKER) (test code = 24.1 % 40.1-51.0 L 411) MEAN CORPUSCULAR VOLUME (BEAKER) 97.6 fL 79.0-92.2 H (test code = 753) MEAN CORPUSCULAR HEMOGLOBIN 31.2 pg 25.7-32.2 (BEAKER) (test code = 751) MEAN CORPUSCULAR HEMOGLOBIN CONC 32.0 GM/DL 32.3-36.5 L (BEAKER) (test code = 752) RED CELL DISTRIBUTION WIDTH 17.4 % 11.6-14.4 H (BEAKER) (test code = 412) PLATELET COUNT (BEAKER) (test 100 K/CU MM 150-450 L code = 756) MEAN PLATELET VOLUME (BEAKER) 11.5 fL 9.4-12.4 (test code = 754) NUCLEATED RED BLOOD CELLS 0 /100 WBC 0-0 (BEAKER) (test code = 413) NEUTROPHILS RELATIVE PERCENT 72 % (BEAKER) (test code = 429) LYMPHOCYTES RELATIVE PERCENT 18 % (BEAKER) (test code = 430) MONOCYTES RELATIVE PERCENT 9 % (BEAKER) (test code = 431) EOSINOPHILS RELATIVE PERCENT 1 % (BEAKER) (test code = 432) BASOPHILS RELATIVE PERCENT 0 % (BEAKER) (test code = 437) NEUTROPHILS ABSOLUTE COUNT 3.48 K/ L 1.78-5.38 (BEAKER) (test code = 670) LYMPHOCYTES ABSOLUTE COUNT 0.86 K/ L 1.32-3.57 L (BEAKER) (test code = 414) MONOCYTES ABSOLUTE COUNT (BEAKER) 0.45 K/ L 0.30-0.82 (test code = 415) EOSINOPHILS ABSOLUTE COUNT 0.04 K/ L 0.04-0.54 (BEAKER) (test code = 416) BASOPHILS ABSOLUTE COUNT (BEAKER) 0.01 K/ L 0.01-0.08 (test code = 417) IMMATURE GRANULOCYTES-RELATIVE 1 % 0-1 PERCENT (BEAKER) (test code = 2801) BASIC METABOLIC [id number] 06:41:00 Test Item Value Reference Range Interpretation Comments SODIUM (BEAKER) 143 meq/L 136-145 (test code = 381) POTASSIUM (BEAKER) 3.8 meq/L 3.5-5.1 (test code = 379) CHLORIDE (BEAKER) 104 meq/L 98-107 (test code = 382) CO2 (BEAKER) (test 25 meq/L 22-29 code = 355) BLOOD UREA NITROGEN 86 mg/dL 7-21 H (BEAKER) (test code = 354) CREATININE (BEAKER) 2.14 mg/dL 0.57-1.25 H (test code = 358) GLUCOSE RANDOM 104 mg/dL 70-105 (BEAKER) (test code = 652) CALCIUM (BEAKER) 7.5 mg/dL 8.4-10.2 L (test code = 697) EGFR (BEAKER) (test 32 mL/min/1.73 ESTIMA ROBERTA GFR IS code = 1092) sq m NOT ACCURATE CREATININE CLEARANCE IN PREDICTING GLOMERULAR FILTRATION RATE . ESTIMATED GFR I S NOT APPLICABLE FOR DIALYSIS PATIEN TS. [id number] 06:39:00 Test Item Value Reference Range Interpretation Comments PHOSPHORUS (BEAKER) (test code = 6.1 mg/dL 2.3-4.7 H 604) LEGIONELLA [id number] 04:55:00 Test Item Value Reference Range Interpretation Comments CULTURE (BEAKER) No Legionella species (test code = 1095) isolated POCT-GLUCOSE [id number] 21:37:00 Test Item Value Reference Range Interpretation Comments POC-GLUCOSE METER 174 mg/dL 70-110 H TESTED AT [facility] 67 ([facility] (test code = PARESH [place] 1538) [address] POCT-GLUCOSE [id number] 18:18:00 Test Item Value Reference Range Interpretation Comments POC-GLUCOSE METER 230 mg/dL 70-110 H TESTED AT [facility] 6720 ([facility] (test code = PARESH Garcia [place] 1538) [address] POCT-GLUCOSE [id number] 13:15:00 Test Item Value Reference Range Interpretation Comments POC-GLUCOSE METER 104 mg/dL 70-110 TESTED AT [place] [address] ([facility]) (test code = PARESH Garcia [place] 1538) [address] TACROLIMUS [id number] 11:40:00 Test Item Value Reference Range Interpretation Comments TACROLIMUS BLOOD (BEAKER) (test 4.3 ng/mL 10.0-20.0 L code = 657) POCT-GLUCOSE [id number] 09:28:00 Test Item Value Reference Range Interpretation Comments POC-GLUCOSE METER 206 mg/dL 70-110 H TESTED AT [facility] 6720 ([facility]) (test code = PARESH Garcia [facility] 1538) [address] BASIC METABOLIC [id number] 07:44:00 Test Item Value Reference Range Interpretation Comments SODIUM (BEAKER) 139 meq/L 136-145 (test code = 381) POTASSIUM (BEAKER) 4.0 meq/L 3.5-5.1 (test code = 379) CHLORIDE (BEAKER) 103 meq/L 98-107 (test code = 382) CO2 (BEAKER) (test 25 meq/L 22-29 code = 355) BLOOD UREA NITROGEN 83 mg/dL 7-21 H (BEAKER) (test code = 354) CREATININE (BEAKER) 2.43 mg/dL 0.57-1.25 H (test code = 358) GLUCOSE RANDOM 116 mg/dL 70-105 H (BEAKER) (test code = 652) CALCIUM (BEAKER) 7.6 mg/dL 8.4-10.2 L (test code = 697) EGFR (BEAKER) (test 27 mL/min/1.73 ESTIMA ROBERTA GFR IS code = 1092) sq m NOT ACCURATE CREATININE CLEARANCE IN PREDICTING GLOMERULAR FILTRATION RATE . ESTIMATED GFR I S NOT APPLICABLE FOR DIALYSIS PATIEN TS. CBC W/PLT COUNT & AUTO [id number] 06:46:00 Test Item Value Reference Range Interpretation Comments WHITE BLOOD CELL COUNT (BEAKER) 4.4 K/ L 3.5-10.5 (test code = 775) RED BLOOD CELL COUNT (BEAKER) 2.44 M/ L 4.63-6.08 L (test code = 761) HEMOGLOBIN (BEAKER) (test code = 7.4 GM/DL 13.7-17.5 L 410) HEMATOCRIT (BEAKER) (test code = 23.8 % 40.1-51.0 L 411) MEAN CORPUSCULAR VOLUME (BEAKER) 97.5 fL 79.0-92.2 H (test code = 753) MEAN CORPUSCULAR HEMOGLOBIN 30.3 pg 25.7-32.2 (BEAKER) (test code = 751) MEAN CORPUSCULAR HEMOGLOBIN CONC 31.1 GM/DL 32.3-36.5 L (BEAKER) (test code = 752) RED CELL DISTRIBUTION WIDTH 17.5 % 11.6-14.4 H (BEAKER) (test code = 412) PLATELET COUNT (BEAKER) (test code 95 K/CU MM 150-450 L = 756) MEAN PLATELET VOLUME (BEAKER) 11.4 fL 9.4-12.4 (test code = 754) NUCLEATED RED BLOOD CELLS (BEAKER) 0 /100 WBC 0-0 (test code = 413) NEUTROPHILS RELATIVE PERCENT 72 % (BEAKER) (test code = 429) LYMPHOCYTES RELATIVE PERCENT 16 % (BEAKER) (test code = 430) MONOCYTES RELATIVE PERCENT 10 % (BEAKER) (test code = 431) EOSINOPHILS RELATIVE PERCENT 1 % (BEAKER) (test code = 432) BASOPHILS RELATIVE PERCENT 0 % (BEAKER) (test code = 437) NEUTROPHILS ABSOLUTE COUNT 3.18 K/ L 1.78-5.38 (BEAKER) (test code = 670) LYMPHOCYTES ABSOLUTE COUNT 0.72 K/ L 1.32-3.57 L (BEAKER) (test code = 414) MONOCYTES ABSOLUTE COUNT (BEAKER) 0.43 K/ L 0.30-0.82 (test code = 415) EOSINOPHILS ABSOLUTE COUNT 0.04 K/ L 0.04-0.54 (BEAKER) (test code = 416) BASOPHILS ABSOLUTE COUNT (BEAKER) 0.01 K/ L 0.01-0.08 (test code = 417) IMMATURE GRANULOCYTES-RELATIVE 1 % 0-1 PERCENT (BEAKER) (test code = 2808) POCT-GLUCOSE [id number] 18:11:00 Test Item Value Reference Range Interpretation Comments POC-GLUCOSE METER 214 mg/dL 70-110 H TESTED AT [facility] 6720 (BEAKER) (test code = JACQUELINEYULISA [place] 1538) [address] POCT-GLUCOSE [id number] 12:38:00 Test Item Value Reference Range Interpretation Comments POC-GLUCOSE METER 173 mg/dL 70-110 H TESTED AT [facility] 6720 (BEAKER) (test code = PARESH [place] 1538) [address] TACROLIMUS [id number] 10:03:00 Test Item Value Reference Range Interpretation Comments TACROLIMUS BLOOD (BEAKER) (test 6.2 ng/mL 10.0-20.0 L code = 657) CBC W/PLT COUNT & AUTO [id number] 07:36:00 Test Item Value Reference Range Interpretation Comments WHITE BLOOD CELL COUNT (BEAKER) 14.9 K/ L 3.5-10.5 H (test code = 775) RED BLOOD CELL COUNT (BEAKER) 2.96 M/ L 4.63-6.08 L (test code = 761) HEMOGLOBIN (BEAKER) (test code = 9.0 GM/DL 13.7-17.5 L 410) HEMATOCRIT (BEAKER) (test code = 28.3 % 40.1-51.0 L 411) MEAN CORPUSCULAR VOLUME (BEAKER) 95.6 fL 79.0-92.2 H (test code = 753) MEAN CORPUSCULAR HEMOGLOBIN 30.4 pg 25.7-32.2 (BEAKER) (test code = 751) MEAN CORPUSCULAR HEMOGLOBIN CONC 31.8 GM/DL 32.3-36.5 L (BEAKER) (test code = 752) RED CELL DISTRIBUTION WIDTH 18.1 % 11.6-14.4 H (BEAKER) (test code = 412) PLATELET COUNT (BEAKER) (test 138 K/CU MM 150-450 L code = 756) MEAN PLATELET VOLUME (BEAKER) 11.5 fL 9.4-12.4 (test code = 754) NUCLEATED RED BLOOD CELLS 0 /100 WBC 0-0 (BEAKER) (test code = 413) (CELLAVISION MANUAL DIFF)[id number] 07:36:00 Test Item Value Reference Range Interpretation Comments NEUTROPHILS - REL 86 % (CELLAVISION)(BEAKER) (test code = 2816) LYMPHOCYTES - REL 7 % (CELLAVISION)(BEAKER) (test code = 2817) MONOCYTES - REL 5 % (CELLAVISION)(BEAKER) (test code = 2818) EOSINOPHILS - REL 2 % (CELLAVISION)(BEAKER) (test code = 2819) NEUTROPHILS - ABS 12.81 K/ul 1.78-5.38 H (CELLAVISION)(BEAKER) (test code = 2830) LYMPHOCYTES - ABS 1.04 K/ul 1.32-3.57 L (CELLAVISION)(BEAKER) (test code = 2831) MONOCYTES - ABS 0.75 K/uL 0.30-0.82 (CELLAVISION)(BEAKER) (test code = 2832) EOSINOPHILS - ABS 0.30 K/uL 0.04-0.54 (CELLAVISION)(BEAKER) (test code = 2834) TOTAL COUNTED (BEAKER) (test code 100 = 1351) WBC MORPHOLOGY (BEAKER) (test code Normal = 487) PLT MORPHOLOGY (BEAKER) (test code Normal = 486) ANISOCYTOSIS (BEAKER) (test code = 1+ few 961) MICROCYTES (BEAKER) (test code = 1+ few 965) POIKILOCYTES (BEAKER) (test code = 1+ few 966) ARTIFACT (CELLAVISION)(BEAKER) Present (test code = 3432) PLATELET CONCENTRATION Decreased (CELLAVISION)(BEAKER) (test code = 3438) Received comment: User comments: Slide comments:HEPATIC FUNCTION [id number] 06:16:00 Test Item Value Reference Range Interpretation Comments TOTAL PROTEIN (BEAKER) (test code = 4.9 gm/dL 6.0-8.3 L 770) ALBUMIN (BEAKER) (test code = 1145) 3.3 g/dL 3.5-5.0 L BILIRUBIN TOTAL (BEAKER) (test code 1.7 mg/dL 0.2-1.2 H = 377) BILIRUBIN DIRECT (BEAKER) (test 1.1 mg/dL 0.1-0.5 H code = 706) ALKALINE PHOSPHATASE (BEAKER) (test 263 U/L 40-150 H code = 346) AST (SGOT) (BEAKER) (test code = 58 U/L 5-34 H 353) ALT (SGPT) (BEAKER) (test code = 84 U/L 6-55 H 347) BASIC METABOLIC [id number] 06:16:00 Test Item Value Reference Range Interpretation Comments SODIUM (BEAKER) 139 meq/L 136-145 (test code = 381) POTASSIUM (BEAKER) 4.1 meq/L 3.5-5.1 (test code = 379) CHLORIDE (BEAKER) 102 meq/L 98-107 (test code = 382) CO2 (BEAKER) (test 23 meq/L 22-29 code = 355) BLOOD UREA NITROGEN 76 mg/dL 7-21 H (BEAKER) (test code = 354) CREATININE (BEAKER) 2.77 mg/dL 0.57-1.25 H (test code = 358) GLUCOSE RANDOM 111 mg/dL 70-105 H (BEAKER) (test code = 652) CALCIUM (BEAKER) 8.2 mg/dL 8.4-10.2 L (test code = 697) EGFR (BEAKER) (test 24 mL/min/1.73 ESTIMA ROBERTA GFR IS code = 1092) sq m NOT ACCURATE CREATININE CLEARANCE IN PREDICTING GLOMERULAR FILTRATION RATE . ESTIMATED GFR I S NOT APPLICABLE FOR DIALYSIS PATIEN TS. POCT-GLUCOSE [id number] 00:25:00 Test Item Value Reference Range Interpretation Comments POC-GLUCOSE METER 149 mg/dL 70-110 H TESTED AT [place] [address] ([facility]) (test code = [facility] 1538) [address] POCT-GLUCOSE [id number] 18:42:00 Test Item Value Reference Range Interpretation Comments POC-GLUCOSE METER 204 mg/dL 70-110 H TESTED AT [place] [address] ([facility]) (test code = [facility] 1538) [address] POCT-GLUCOSE [id number] 11:49:00 Test Item Value Reference Range Interpretation Comments POC-GLUCOSE METER 104 mg/dL 70-110 TESTED AT [place] [address] ([facility]) (test code = [facility] 1538) [address] TACROLIMUS [id number] 09:02:00 Test Item Value Reference Range Interpretation Comments TACROLIMUS BLOOD ([facility]) (test 7.4 ng/mL 10.0-20.0 L code = 657) RAD, CHEST, 1 VIEW, NON [id number] 08:16:00Reason for exam:->respiratory failureShould this be performed at the bedside?->YesFINAL REPORT Chest one view compared to January 06 Discussion: Bilateral airspace pulmonary opacities are similar. Lateral lines in place lower SVC level. No gross effusion or pneumothorax. Signed: Denilson Callejas Verified Date/Time: 01/07/2018 08:16:36 Reading Location: [facility] Reading Room BASIC METABOLIC [id number] 05:23:00 Test Item Value Reference Range Interpretation Comments SODIUM (BEAKER) 141 meq/L 136-145 (test code = 381) POTASSIUM (BEAKER) 4.2 meq/L 3.5-5.1 (test code = 379) CHLORIDE (BEAKER) 108 meq/L 98-107 H (test code = 382) CO2 (BEAKER) (test 22 meq/L 22-29 code = 355) BLOOD UREA NITROGEN 54 mg/dL 7-21 H (BEAKER) (test code = 354) CREATININE (BEAKER) 2.35 mg/dL 0.57-1.25 H (test code = 358) GLUCOSE RANDOM 77 mg/dL 70-105 (BEAKER) (test code = 652) CALCIUM (BEAKER) 7.9 mg/dL 8.4-10.2 L (test code = 697) EGFR (BEAKER) (test 28 mL/min/1.73 ESTIMA ROBERTA GFR IS code = 1092) sq m NOT ACCURATE CREATININE CLEARANCE IN PREDICTING GLOMERULAR FILTRATION RATE . ESTIMATED GFR I S NOT APPLICABLE FOR DIALYSIS PATIEN TS. CBC W/PLT COUNT & AUTO [id number] 05:21:00 Test Item Value Reference Range Interpretation Comments WHITE BLOOD CELL COUNT (BEAKER) 16.5 K/ L 3.5-10.5 H (test code = 775) RED BLOOD CELL COUNT (BEAKER) 2.92 M/ L 4.63-6.08 L (test code = 761) HEMOGLOBIN (BEAKER) (test code = 8.8 GM/DL 13.7-17.5 L 410) HEMATOCRIT (BEAKER) (test code = 28.4 % 40.1-51.0 L 411) MEAN CORPUSCULAR VOLUME (BEAKER) 97.3 fL 79.0-92.2 H (test code = 753) MEAN CORPUSCULAR HEMOGLOBIN 30.1 pg 25.7-32.2 (BEAKER) (test code = 751) MEAN CORPUSCULAR HEMOGLOBIN CONC 31.0 GM/DL 32.3-36.5 L (BEAKER) (test code = 752) RED CELL DISTRIBUTION WIDTH 17.7 % 11.6-14.4 H (BEAKER) (test code = 412) PLATELET COUNT (BEAKER) (test 104 K/CU MM 150-450 L code = 756) MEAN PLATELET VOLUME (BEAKER) 11.9 fL 9.4-12.4 (test code = 754) NUCLEATED RED BLOOD CELLS 0 /100 WBC 0-0 (BEAKER) (test code = 413) NEUTROPHILS RELATIVE PERCENT 82 % (BEAKER) (test code = 429) LYMPHOCYTES RELATIVE PERCENT 7 % (BEAKER) (test code = 430) MONOCYTES RELATIVE PERCENT 7 % (BEAKER) (test code = 431) EOSINOPHILS RELATIVE PERCENT 1 % (BEAKER) (test code = 432) BASOPHILS RELATIVE PERCENT 0 % (BEAKER) (test code = 437) NEUTROPHILS ABSOLUTE COUNT 13.47 K/ L 1.78-5.38 H (BEAKER) (test code = 670) LYMPHOCYTES ABSOLUTE COUNT 1.16 K/ L 1.32-3.57 L (BEAKER) (test code = 414) MONOCYTES ABSOLUTE COUNT (BEAKER) 1.22 K/ L 0.30-0.82 H (test code = 415) EOSINOPHILS ABSOLUTE COUNT 0.21 K/ L 0.04-0.54 (BEAKER) (test code = 416) BASOPHILS ABSOLUTE COUNT (BEAKER) 0.02 K/ L 0.01-0.08 (test code = 417) IMMATURE GRANULOCYTES-RELATIVE 2 % 0-1 H PERCENT (BEAKER) (test code = 2801) HEPATIC FUNCTION [id number] 05:21:00 Test Item Value Reference Range Interpretation Comments TOTAL PROTEIN (BEAKER) (test code = 4.4 gm/dL 6.0-8.3 L 770) ALBUMIN (BEAKER) (test code = 1145) 2.9 g/dL 3.5-5.0 L BILIRUBIN TOTAL (BEAKER) (test code 1.9 mg/dL 0.2-1.2 H = 377) BILIRUBIN DIRECT (BEAKER) (test 1.2 mg/dL 0.1-0.5 H code = 706) ALKALINE PHOSPHATASE ([facility]) (test 263 U/L 40-150 H code = 346) AST (SGOT) ([facility]) (test code = 64 U/L 5-34 H 353) ALT (SGPT) ([facility]) (test code = 91 U/L 6-55 H 347) POCT-GLUCOSE [id number] 23:36:00 Test Item Value Reference Range Interpretation Comments POC-GLUCOSE METER 86 mg/dL 70-110 TESTED AT [place] [address] ([facility]) (test code = [facility] [address] 1538) POCT-GLUCOSE [id number] 22:44:00 Test Item Value Reference Range Interpretation Comments POC-GLUCOSE METER 138 mg/dL 70-110 H TESTED AT [place] [address] ([facility]) (test code = [facility] 1538) [id number] HEPATOBILIARY [id number] 16:02:00Per REPORT PROCEDURE: HEPATOBILIARY SCAN CPT CODE: 09600 INDICATION: Right upper quadrant pain, fever, leukocytosis [...] consistent with acute cholecystitis, no morphine sulfate are delayed images were obtained to verify and to increase the positive predictive value. Imaging studies available for correlation included ultrasound abdomen 12/27/2017. Signed: Kasia Aiken MDReport Verified Date/Time: 01/06/2018 16:02:34 Reading Location: [address] Reading Room El ectronically signed by: KASIA AIKEN MD on 01/06/2018 04:02 PMTACROLIMUS [id number] 10:39:00 Test Item Value Reference Range Interpretation Comments TACROLIMUS BLOOD ([facility]) (test 9.1 ng/mL 10.0-20.0 L code = 657) RAD, CHEST, 1 VIEW, NON [id number] 03:58:00Reason for exam:->respiratory failureShould this be performed at the bedside?->YesFINAL REPORT EXAMINATION: AP PORTABLE CHEST RADIOGRAPH CLINICAL INDICATION: Re spiratory failure IMPRESSION: Compared with 01/05/2018 Support tube and catheter positions are unchanged. Cardiac and mediastinal contours are stable. Relatively stable opacities are again noted throughout both lungs, most conspicuous in the perihilar regions and lung bases. The small superimposed pleural effusions and/or pleural thickening are also stable. No evidence of new lung consolidation or pneumothorax. In summary, no significant interval change. Signed: Osiris Reagan MDReport Verified Date/Time: 01/06/2018 03:58:03 Reading Location: [address] Reading Room CBC W/PLT COUNT & AUTO [id number] 03:53:00 Test Item Value Reference Range Interpretation Comments WHITE BLOOD CELL COUNT (BEAKER) 10.2 K/ L 3.5-10.5 (test code = 775) RED BLOOD CELL COUNT (BEAKER) 2.58 M/ L 4.63-6.08 L (test code = 761) HEMOGLOBIN (BEAKER) (test code = 7.9 GM/DL 13.7-17.5 L 410) HEMATOCRIT (BEAKER) (test code = 24.4 % 40.1-51.0 L 411) MEAN CORPUSCULAR VOLUME (BEAKER) 94.6 fL 79.0-92.2 H (test code = 753) MEAN CORPUSCULAR HEMOGLOBIN 30.6 pg 25.7-32.2 (BEAKER) (test code = 751) MEAN CORPUSCULAR HEMOGLOBIN CONC 32.4 GM/DL 32.3-36.5 (BEAKER) (test code = 752) RED CELL DISTRIBUTION WIDTH 17.0 % 11.6-14.4 H (BEAKER) (test code = 412) PLATELET COUNT (BEAKER) (test code 51 K/CU MM 150-450 L = 756) MEAN PLATELET VOLUME (BEAKER) 12.8 fL 9.4-12.4 H (test code = 754) NUCLEATED RED BLOOD CELLS (BEAKER) 0 /100 WBC 0-0 (test code = 413) NEUTROPHILS RELATIVE PERCENT 84 % (BEAKER) (test code = 429) LYMPHOCYTES RELATIVE PERCENT 6 % (BEAKER) (test code = 430) MONOCYTES RELATIVE PERCENT 5 % (BEAKER) (test code = 431) EOSINOPHILS RELATIVE PERCENT 1 % (BEAKER) (test code = 432) BASOPHILS RELATIVE PERCENT 0 % (BEAKER) (test code = 437) NEUTROPHILS ABSOLUTE COUNT 8.55 K/ L 1.78-5.38 H (BEAKER) (test code = 670) LYMPHOCYTES ABSOLUTE COUNT 0.65 K/ L 1.32-3.57 L (BEAKER) (test code = 414) MONOCYTES ABSOLUTE COUNT (BEAKER) 0.53 K/ L 0.30-0.82 (test code = 415) EOSINOPHILS ABSOLUTE COUNT 0.11 K/ L 0.04-0.54 (BEAKER) (test code = 416) BASOPHILS ABSOLUTE COUNT (BEAKER) 0.01 K/ L 0.01-0.08 (test code = 417) IMMATURE GRANULOCYTES-RELATIVE 4 % 0-1 H PERCENT (BEAKER) (test code = 2801) BASIC METABOLIC [id number] 03:51:00 Test Item Value Reference Range Interpretation Comments SODIUM (BEAKER) 137 meq/L 136-145 (test code = 381) POTASSIUM (BEAKER) 4.1 meq/L 3.5-5.1 (test code = 379) CHLORIDE (BEAKER) 106 meq/L 98-107 (test code = 382) CO2 (BEAKER) (test 23 meq/L 22-29 code = 355) BLOOD UREA NITROGEN 36 mg/dL 7-21 H (BEAKER) (test code = 354) CREATININE (BEAKER) 1.83 mg/dL 0.57-1.25 H (test code = 358) GLUCOSE RANDOM 113 mg/dL 70-105 H (BEAKER) (test code = 652) CALCIUM (BEAKER) 8.2 mg/dL 8.4-10.2 L (test code = 697) EGFR (BEAKER) (test 38 mL/min/1.73 ESTIMA ROBERTA GFR IS code = 1092) sq m NOT ACCURATE CREATININE CLEARANCE IN PREDICTING GLOMERULAR FILTRATION RATE . ESTIMATED GFR I S NOT APPLICABLE FOR DIALYSIS PATIEN TS. [id number] 03:51:00 Test Item Value Reference Range Interpretation Comments MAGNESIUM (BEAKER) (test code = 2.1 mg/dL 1.6-2.6 627) [id number] 03:51:00 Test Item Value Reference Range Interpretation Comments PHOSPHORUS (BEAKER) (test code = 3.9 mg/dL 2.3-4.7 604) POCT-GLUCOSE [id number] 00:02:00 Test Item Value Reference Range Interpretation Comments POC-GLUCOSE METER 110 mg/dL 70-110 TESTED AT [facility] [address] (BEAKER) (test code = [facility] [place] 1538) [id number] BASIC METABOLIC [id number] 18:14:00 Test Item Value Reference Range Interpretation Comments SODIUM (BEAKER) 137 meq/L 136-145 (test code = 381) POTASSIUM (BEAKER) 4.5 meq/L 3.5-5.1 (test code = 379) CHLORIDE (BEAKER) 106 meq/L 98-107 (test code = 382) CO2 (BEAKER) (test 22 meq/L 22-29 code = 355) BLOOD UREA NITROGEN 28 mg/dL 7-21 H (BEAKER) (test code = 354) CREATININE (BEAKER) 1.33 mg/dL 0.57-1.25 H (test code = 358) GLUCOSE RANDOM 134 mg/dL 70-105 H (BEAKER) (test code = 652) CALCIUM (BEAKER) 8.5 mg/dL 8.4-10.2 (test code = 697) EGFR (BEAKER) (test 55 mL/min/1.73 ESTIMA ROBERTA GFR IS code = 1092) sq m NOT ACCURATE CREATININE CLEARANCE IN PREDICTING GLOMERULAR FILTRATION RATE . ESTIMATED GFR I S NOT APPLICABLE FOR DIALYSIS PATIEN TS. POCT-GLUCOSE [id number] 17:56:00 Test Item Value Reference Range Interpretation Comments POC-GLUCOSE METER 143 mg/dL 70-110 H TESTED AT [facility] [address] (BEAKER) (test code = [facility] [place] 1538) [id number] 16:39:00 Test Item Value Reference Range Interpretation Comments POTASSIUM (BEAKER) (test code = 4.7 meq/L 3.5-5.1 379) CALCIUM, [id number] 16:33:00 Test Item Value Reference Range Interpretation Comments CALCIUM IONIZED (BEAKER) (test 1.11 mmol/L 1.12-1.27 L code = 698) PH, BLOOD (BEAKER) (test code = 7.53 1810) [id number] 12:31:00 Test Item Value Reference Range Interpretation Comments POTASSIUM (BEAKER) (test code = 4.2 meq/L 3.5-5.1 379) POCT-GLUCOSE [id number] 12:06:00 Test Item Value Reference Range Interpretation Comments POC-GLUCOSE METER 137 mg/dL 70-110 H TESTED AT [facility] [address] (BEAKER) (test code = PARESH AVALOS [place]ON[place] 1538) [id number] 10:53:00 Test Item Value Reference Range Interpretation Comments AMYLASE (BEAKER) (test code = 349) 53 U/L 25-125 Specimen slightly [id number] 10:53:00 Test Item Value Reference Range Interpretation Comments LIPASE (BEAKER) (test code = 749) 34 U/L 8-78 Specimen slightly ictericTACROLIMUS [id number] 10:02:00 Test Item Value Reference Range Interpretation Comments TACROLIMUS BLOOD (BEAKER) (test 8.9 ng/mL 10.0-20.0 L code = 657) [id number] 08:58:00 Test Item Value Reference Range Interpretation Comments PHOSPHORUS (BEAKER) (test code = 2.5 mg/dL 2.3-4.7 604) [id number] 08:58:00 Test Item Value Reference Range Interpretation Comments MAGNESIUM (BEAKER) (test code = 1.9 mg/dL 1.6-2.6 627) BASIC METABOLIC [id number] 08:58:00 Test Item Value Reference Range Interpretation Comments SODIUM (BEAKER) 139 meq/L 136-145 (test code = 381) POTASSIUM (BEAKER) 4.1 meq/L 3.5-5.1 (test code = 379) CHLORIDE (BEAKER) 108 meq/L 98-107 H (test code = 382) CO2 (BEAKER) (test 23 meq/L 22-29 code = 355) BLOOD UREA NITROGEN 29 mg/dL 7-21 H (BEAKER) (test code = 354) CREATININE (BEAKER) 1.37 mg/dL 0.57-1.25 H (test code = 358) GLUCOSE RANDOM 138 mg/dL 70-105 H (BEAKER) (test code = 652) CALCIUM (BEAKER) 8.7 mg/dL 8.4-10.2 (test code = 697) EGFR (BEAKER) (test 53 mL/min/1.73 ESTIMA ROBERTA GFR IS code = 1092) sq m NOT ACCURATE CREATININE CLEARANCE IN PREDICTING GLOMERULAR FILTRATION RATE . ESTIMATED GFR I S NOT APPLICABLE FOR DIALYSIS PATIEN TS. CALCIUM, [id number] 08:38:00 Test Item Value Reference Range Interpretation Comments CALCIUM IONIZED (BEAKER) (test 1.07 mmol/L 1.12-1.27 L code = 698) PH, BLOOD (BEAKER) (test code = 7.51 1810) RAD, CHEST, 1 VIEW, NON [id number] 06:36:00Reason for exam:->respiratory failureShould this be performed [...] bilateral pleural effusions. There is no pneumothorax. Signed: David Yee MDReport Verified Date/Time: 01/05/2018 06:36:45 Reading Location: [address] Transitional Reading Room BASIC METABOLIC [id number] 06:33:00 Test Item Value Reference Range Interpretation Comments SODIUM (BEAKER) 139 meq/L 136-145 (test code = 381) POTASSIUM (BEAKER) 4.1 meq/L 3.5-5.1 (test code = 379) CHLORIDE (BEAKER) 108 meq/L 98-107 H (test code = 382) CO2 (BEAKER) (test 24 meq/L 22-29 code = 355) BLOOD UREA NITROGEN 29 mg/dL 7-21 H (BEAKER) (test code = 354) CREATININE (BEAKER) 1.31 mg/dL 0.57-1.25 H (test code = 358) GLUCOSE RANDOM 132 mg/dL 70-105 H (BEAKER) (test code = 652) CALCIUM (BEAKER) 8.8 mg/dL 8.4-10.2 (test code = 697) EGFR (BEAKER) (test 56 mL/min/1.73 ESTIMA ROBERTA GFR IS code = 1092) sq m NOT ACCURATE CREATININE CLEARANCE IN PREDICTING GLOMERULAR FILTRATION RATE . ESTIMATED GFR I S NOT APPLICABLE FOR DIALYSIS PATIEN TS. Specimen slightly ictericHEPATIC FUNCTION [id number] 06:33:00 Test Item Value Reference Range Interpretation Comments TOTAL PROTEIN (BEAKER) (test code = 4.4 gm/dL 6.0-8.3 L 770) ALBUMIN (BEAKER) (test code = 1145) 3.0 g/dL 3.5-5.0 L BILIRUBIN TOTAL (BEAKER) (test code 2.7 mg/dL 0.2-1.2 H = 377) BILIRUBIN DIRECT (BEAKER) (test 1.7 mg/dL 0.1-0.5 H code = 706) ALKALINE PHOSPHATASE (BEAKER) (test 265 U/L 40-150 H code = 346) AST (SGOT) (BEAKER) (test code = 78 U/L 5-34 H 353) ALT (SGPT) (BEAKER) (test code = 114 U/L 6-55 H 347) Specimen slightly ictericCBC W/PLT COUNT & AUTO [id number] 06:07:00 Test Item Value Reference Range Interpretation Comments WHITE BLOOD CELL COUNT (BEAKER) 12.0 K/ L 3.5-10.5 H (test code = 775) RED BLOOD CELL COUNT (BEAKER) 2.55 M/ L 4.63-6.08 L (test code = 761) HEMOGLOBIN (BEAKER) (test code = 7.8 GM/DL 13.7-17.5 L 410) HEMATOCRIT (BEAKER) (test code = 24.4 % 40.1-51.0 L 411) MEAN CORPUSCULAR VOLUME (BEAKER) 95.7 fL 79.0-92.2 H (test code = 753) MEAN CORPUSCULAR HEMOGLOBIN 30.6 pg 25.7-32.2 (BEAKER) (test code = 751) MEAN CORPUSCULAR HEMOGLOBIN CONC 32.0 GM/DL 32.3-36.5 L (BEAKER) (test code = 752) RED CELL DISTRIBUTION WIDTH 15.8 % 11.6-14.4 H (BEAKER) (test code = 412) PLATELET COUNT (BEAKER) (test code 39 K/CU MM 150-450 L = 756) MEAN PLATELET VOLUME (BEAKER) 13.4 fL 9.4-12.4 H (test code = 754) NUCLEATED RED BLOOD CELLS (BEAKER) 0 /100 WBC 0-0 (test code = 413) NEUTROPHILS RELATIVE PERCENT 87 % (BEAKER) (test code = 429) LYMPHOCYTES RELATIVE PERCENT 5 % (BEAKER) (test code = 430) MONOCYTES RELATIVE PERCENT 3 % (BEAKER) (test code = 431) EOSINOPHILS RELATIVE PERCENT 1 % (BEAKER) (test code = 432) BASOPHILS RELATIVE PERCENT 0 % (BEAKER) (test code = 437) NEUTROPHILS ABSOLUTE COUNT 10.49 K/ L 1.78-5.38 H (BEAKER) (test code = 670) LYMPHOCYTES ABSOLUTE COUNT 0.55 K/ L 1.32-3.57 L (BEAKER) (test code = 414) MONOCYTES ABSOLUTE COUNT (BEAKER) 0.40 K/ L 0.30-0.82 (test code = 415) EOSINOPHILS ABSOLUTE COUNT 0.14 K/ L 0.04-0.54 (BEAKER) (test code = 416) BASOPHILS ABSOLUTE COUNT (BEAKER) 0.01 K/ L 0.01-0.08 (test code = 417) IMMATURE GRANULOCYTES-RELATIVE 4 % 0-1 H PERCENT (BEAKER) (test code = 2801) [id number] 00:54:00 Test Item Value Reference Range Interpretation Comments POTASSIUM (BEAKER) (test code = 4.0 meq/L 3.5-5.1 379) CALCIUM, [id number] 00:39:00 Test Item Value Reference Range Interpretation Comments CALCIUM IONIZED (BEAKER) (test 1.09 mmol/L 1.12-1.27 L code = 698) PH, BLOOD (BEAKER) (test code = 7.49 1810) POCT-GLUCOSE [id number] 00:12:00 Test Item Value Reference Range Interpretation Comments POC-GLUCOSE METER 96 mg/dL 70-110 TESTED AT [facility] 67[address] (BEAKER) (test code = [place] [address] 1538) [id number] 20:37:00 Test Item Value Reference Range Interpretation Comments POTASSIUM (BEAKER) (test code = 4.3 meq/L 3.5-5.1 379) [id number] 20:37:00 Test Item Value Reference Range Interpretation Comments MAGNESIUM (BEAKER) (test code = 2.0 mg/dL 1.6-2.6 627) [id number] 20:37:00 Test Item Value Reference Range Interpretation Comments PHOSPHORUS (BEAKER) (test code = 2.1 mg/dL 2.3-4.7 L 604) [id number] 17:29:00 Test Item Value Reference Range Interpretation Comments POTASSIUM (BEAKER) (test code = 4.6 meq/L 3.5-5.1 379) BASIC METABOLIC [id number] 17:29:00 Test Item Value Reference Range Interpretation Comments SODIUM (BEAKER) 136 meq/L 136-145 (test code = 381) POTASSIUM (BEAKER) 4.6 meq/L 3.5-5.1 (test code = 379) CHLORIDE (BEAKER) 105 meq/L 98-107 (test code = 382) CO2 (BEAKER) (test 23 meq/L 22-29 code = 355) BLOOD UREA NITROGEN 33 mg/dL 7-21 H (BEAKER) (test code = 354) CREATININE (BEAKER) 1.39 mg/dL 0.57-1.25 H (test code = 358) GLUCOSE RANDOM 211 mg/dL 70-105 H (BEAKER) (test code = 652) CALCIUM (BEAKER) 8.6 mg/dL 8.4-10.2 (test code = 697) EGFR (BEAKER) (test 52 mL/min/1.73 ESTIMA ROBERTA GFR IS code = 1092) sq m NOT ACCURATE CREATININE CLEARANCE IN PREDICTING GLOMERULAR FILTRATION RATE . ESTIMATED GFR I S NOT APPLICABLE FOR DIALYSIS PATIEN TS. Specimen slightly ictericCALCIUM, [id number] 17:06:00 Test Item Value Reference Range Interpretation Comments CALCIUM IONIZED (BEAKER) (test 1.09 mmol/L 1.12-1.27 L code = 698) PH, BLOOD (BEAKER) (test code = 7.49 1810) TACROLIMUS [id number] 14:39:00 Test Item Value Reference Range Interpretation Comments TACROLIMUS BLOOD (BEAKER) (test 9.5 ng/mL 10.0-20.0 L code = 657) [id number] 13:49:00 Test Item Value Reference Range Interpretation Comments POTASSIUM (BEAKER) (test code = 4.4 meq/L 3.5-5.1 379) POCT-GLUCOSE [id number] 12:21:00 Test Item Value Reference Range Interpretation Comments POC-GLUCOSE METER 182 mg/dL 70-110 H TESTED AT [facility] [address] (BEAKER) (test code = PARESH AVAL[place] 1538) [id number] 10:13:00 Test Item Value Reference Range Interpretation Comments MAGNESIUM (BEAKER) (test code = 2.3 mg/dL 1.6-2.6 627) BASIC METABOLIC [id number] 10:13:00 Test Item Value Reference Range Interpretation Comments SODIUM (BEAKER) 136 meq/L 136-145 (test code = 381) POTASSIUM (BEAKER) 4.1 meq/L 3.5-5.1 (test code = 379) CHLORIDE (BEAKER) 105 meq/L 98-107 (test code = 382) CO2 (BEAKER) (test 23 meq/L 22-29 code = 355) BLOOD UREA NITROGEN 35 mg/dL 7-21 H (BEAKER) (test code = 354) CREATININE (BEAKER) 1.37 mg/dL 0.57-1.25 H (test code = 358) GLUCOSE RANDOM 186 mg/dL 70-105 H (BEAKER) (test code = 652) CALCIUM (BEAKER) 8.3 mg/dL 8.4-10.2 L (test code = 697) EGFR (BEAKER) (test 53 mL/min/1.73 ESTIMA ROBERTA GFR IS code = 1092) sq m NOT ACCURATE CREATININE CLEARANCE IN PREDICTING GLOMERULAR FILTRATION RATE . ESTIMATED GFR I S NOT APPLICABLE FOR DIALYSIS PATIEN TS. Specimen slightly ictericRAD, CHEST, 1 VIEW, NON [id number] 09:57:00Reason for exam:->respiratory failureShould this be performed at the bedside?->YesFINAL REPORT Chest dated 01/04/2018 COMPARISON: January 03, 2018 Clinical Information: respiratory failure Comment: Heart is [...] MDReport Verified Date/Time: 01/04/2018 09:57:17 Reading Location: [address] Body Reading Room CALCIUM, [id number] 09:33:00 Test Item Value Reference Range Interpretation Comments CALCIUM IONIZED (BEAKER) (test 1.12 mmol/L 1.12-1.27 code = 698) PH, BLOOD (BEAKER) (test code = 7.45 1810) Check serum Ionized Calcium level after 4 hours after IV Calcium replacement. [id number] 06:16:00 Test Item Value Reference Range Interpretation Comments PHOSPHORUS (BEAKER) (test code = 3.2 mg/dL 2.3-4.7 604) [id number] 06:16:00 Test Item Value Reference Range Interpretation Comments MAGNESIUM (BEAKER) (test code = 1.9 mg/dL 1.6-2.6 627) BASIC METABOLIC [id number] 06:16:00 Test Item Value Reference Range Interpretation Comments SODIUM (BEAKER) 136 meq/L 136-145 (test code = 381) POTASSIUM (BEAKER) 4.1 meq/L 3.5-5.1 (test code = 379) CHLORIDE (BEAKER) 106 meq/L 98-107 (test code = 382) CO2 (BEAKER) (test 23 meq/L 22-29 code = 355) BLOOD UREA NITROGEN 34 mg/dL 7-21 H (BEAKER) (test code = 354) CREATININE (BEAKER) 1.39 mg/dL 0.57-1.25 H (test code = 358) GLUCOSE RANDOM 173 mg/dL 70-105 H (BEAKER) (test code = 652) CALCIUM (BEAKER) 8.3 mg/dL 8.4-10.2 L (test code = 697) EGFR (BEAKER) (test 52 mL/min/1.73 ESTIMA ROBERTA GFR IS code = 1092) sq m NOT ACCURATE CREATININE CLEARANCE IN PREDICTING GLOMERULAR FILTRATION RATE . ESTIMATED GFR I S NOT APPLICABLE FOR DIALYSIS PATIEN TS. Specimen slightly ictericCBC W/PLT COUNT & AUTO [id number] 05:51:00 Test Item Value Reference Range Interpretation Comments WHITE BLOOD CELL COUNT (BEAKER) 13.3 K/ L 3.5-10.5 H (test code = 775) RED BLOOD CELL COUNT (BEAKER) 2.42 M/ L 4.63-6.08 L (test code = 761) HEMOGLOBIN (BEAKER) (test code = 7.4 GM/DL 13.7-17.5 L 410) HEMATOCRIT (BEAKER) (test code = 23.1 % 40.1-51.0 L 411) MEAN CORPUSCULAR VOLUME (BEAKER) 95.5 fL 79.0-92.2 H (test code = 753) MEAN CORPUSCULAR HEMOGLOBIN 30.6 pg 25.7-32.2 (BEAKER) (test code = 751) MEAN CORPUSCULAR HEMOGLOBIN CONC 32.0 GM/DL 32.3-36.5 L (BEAKER) (test code = 752) RED CELL DISTRIBUTION WIDTH 14.9 % 11.6-14.4 H (BEAKER) (test code = 412) PLATELET COUNT (BEAKER) (test code 28 K/CU MM 150-450 L = 756) MEAN PLATELET VOLUME (BEAKER) 13.3 fL 9.4-12.4 H (test code = 754) NUCLEATED RED BLOOD CELLS (BEAKER) 0 /100 WBC 0-0 (test code = 413) NEUTROPHILS RELATIVE PERCENT 86 % (BEAKER) (test code = 429) LYMPHOCYTES RELATIVE PERCENT 4 % (BEAKER) (test code = 430) MONOCYTES RELATIVE PERCENT 3 % (BEAKER) (test code = 431) EOSINOPHILS RELATIVE PERCENT 2 % (BEAKER) (test code = 432) BASOPHILS RELATIVE PERCENT 0 % (BEAKER) (test code = 437) NEUTROPHILS ABSOLUTE COUNT 11.41 K/ L 1.78-5.38 H (BEAKER) (test code = 670) LYMPHOCYTES ABSOLUTE COUNT 0.54 K/ L 1.32-3.57 L (BEAKER) (test code = 414) MONOCYTES ABSOLUTE COUNT (BEAKER) 0.36 K/ L 0.30-0.82 (test code = 415) EOSINOPHILS ABSOLUTE COUNT 0.22 K/ L 0.04-0.54 (BEAKER) (test code = 416) BASOPHILS ABSOLUTE COUNT (BEAKER) 0.02 K/ L 0.01-0.08 (test code = 417) IMMATURE GRANULOCYTES-RELATIVE 5 % 0-1 H PERCENT (BEAKER) (test code = 2801) BLOOD GAS, [id number] 05:27:00 Test Item Value Reference Range Interpretation Comments PH ARTERIAL (BEAKER) (test code = 7.42 7.35-7.45 383) PCO2 ARTERIAL (BEAKER) (test code 40 mmHg 35-45 = 384) PO2 ARTERIAL (BEAKER) (test code = 90 mmHg 80-90 385) O2 SATURATION ARTERIAL (BEAKER) 97.0 % 96.0-97.0 (test code = 386) HCO3 ARTERIAL (BEAKER) (test code 26 mmol/L 21-29 = 388) BASE EXCESS ARTERIAL (BEAKER) 1.0 mmol/L -2.0-3.0 (test code = 387) PATIENT TEMPERATURE (BEAKER) (test 37.0 C code = 1818) FIO2 (BEAKER) (test code = 1819) 40.0 % CALCIUM, [id number] 05:27:00 Test Item Value Reference Range Interpretation Comments CALCIUM IONIZED (BEAKER) (test 1.14 mmol/L 1.12-1.27 code = 698) PH, BLOOD (BEAKER) (test code = 7.42 1810) [id number] 00:40:00 Test Item Value Reference Range Interpretation Comments POTASSIUM (BEAKER) (test code = 4.2 meq/L 3.5-5.1 379) CALCIUM, [id number] 00:26:00 Test Item Value Reference Range Interpretation Comments CALCIUM IONIZED (BEAKER) (test 1.15 mmol/L 1.12-1.27 code = 698) PH, BLOOD (BEAKER) (test code = 7.42 1810) POCT-GLUCOSE [id number] 00:09:00 Test Item Value Reference Range Interpretation Comments POC-GLUCOSE METER 224 mg/dL 70-110 H TESTED AT [facility] [address] (BEAKER) (test code = PARESH [place] 1538) [id number] 21:19:00 Test Item Value Reference Range Interpretation Comments POTASSIUM (BEAKER) (test code = 4.6 meq/L 3.5-5.1 379) [id number] 21:19:00 Test Item Value Reference Range Interpretation Comments MAGNESIUM (BEAKER) (test code = 1.9 mg/dL 1.6-2.6 627) [id number] 21:19:00 Test Item Value Reference Range Interpretation Comments PHOSPHORUS (BEAKER) (test code = 2.7 mg/dL 2.3-4.7 604) BASIC METABOLIC [id number] 19:10:00 Test Item Value Reference Range Interpretation Comments SODIUM (BEAKER) 137 meq/L 136-145 (test code = 381) POTASSIUM (BEAKER) 4.7 meq/L 3.5-5.1 (test code = 379) CHLORIDE (BEAKER) 108 meq/L 98-107 H (test code = 382) CO2 (BEAKER) (test 21 meq/L 22-29 L code = 355) BLOOD UREA NITROGEN 35 mg/dL 7-21 H (BEAKER) (test code = 354) CREATININE (BEAKER) 1.45 mg/dL 0.57-1.25 H (test code = 358) GLUCOSE RANDOM 201 mg/dL 70-105 H (BEAKER) (test code = 652) CALCIUM (BEAKER) 7.8 mg/dL 8.4-10.2 L (test code = 697) EGFR (BEAKER) (test 50 mL/min/1.73 ESTIMA ROBERTA GFR IS code = 1092) sq m NOT ACCURATE CREATININE CLEARANCE IN PREDICTING GLOMERULAR FILTRATION RATE . ESTIMATED GFR I S NOT APPLICABLE FOR DIALYSIS PATIEN TS. POCT-GLUCOSE [id number] 18:48:00 Test Item Value Reference Range Interpretation Comments POC-GLUCOSE METER 176 mg/dL 70-110 H TESTED AT [facility] 67[address] (BEAKER) (test code = PARESH Garcia [place] 1538) [id number] 16:50:00 Test Item Value Reference Range Interpretation Comments POTASSIUM (BEAKER) (test code = 4.9 meq/L 3.5-5.1 379) CALCIUM, [id number] 16:31:00 Test Item Value Reference Range Interpretation Comments CALCIUM IONIZED (BEAKER) (test 1.12 mmol/L 1.12-1.27 code = 698) PH, BLOOD (BEAKER) (test code = 7.42 1810) POCT-GLUCOSE [id number] 13:33:00 Test Item Value Reference Range Interpretation Comments POC-GLUCOSE METER 259 mg/dL 70-110 H TESTED AT [facility] 67[address] (BEAKER) (test code = PARESH Garcia [place] 1538) [address] [id number] 13:26:00 Test Item Value Reference Range Interpretation Comments POTASSIUM (BEAKER) (test code = 4.5 meq/L 3.5-5.1 379) [id number] 10:47:00 Test Item Value Reference Range Interpretation Comments CORTISOL, TOTAL (BEAKER) (test code 8.7 ug/dL 3.7-19.4 = 2755) It is important that this lab be drawn as close to 8 am as possible. Thanks! [id number] 09:00:00 Test Item Value Reference Range Interpretation Comments PHOSPHORUS (BEAKER) (test code = 2.4 mg/dL 2.3-4.7 604) [id number] 09:00:00 Test Item Value Reference Range Interpretation Comments MAGNESIUM (BEAKER) (test code = 2.1 mg/dL 1.6-2.6 627) BASIC METABOLIC [id number] 09:00:00 Test Item Value Reference Range Interpretation Comments SODIUM (BEAKER) 137 meq/L 136-145 (test code = 381) POTASSIUM (BEAKER) 3.8 meq/L 3.5-5.1 (test code = 379) CHLORIDE (BEAKER) 108 meq/L 98-107 H (test code = 382) CO2 (BEAKER) (test 23 meq/L 22-29 code = 355) BLOOD UREA NITROGEN 36 mg/dL 7-21 H (BEAKER) (test code = 354) CREATININE (BEAKER) 1.56 mg/dL 0.57-1.25 H (test code = 358) GLUCOSE RANDOM 169 mg/dL 70-105 H (BEAKER) (test code = 652) CALCIUM (BEAKER) 8.2 mg/dL 8.4-10.2 L (test code = 697) EGFR (BEAKER) (test 46 mL/min/1.73 ESTIMA ROBERTA GFR IS code = 1092) sq m NOT ACCURATE CREATININE CLEARANCE IN PREDICTING GLOMERULAR FILTRATION RATE . ESTIMATED GFR I S NOT APPLICABLE FOR DIALYSIS PATIEN TS. Specimen slightly ictericTACROLIMUS [id number] 08:45:00 Test Item Value Reference Range Interpretation Comments TACROLIMUS BLOOD (BEAKER) (test 8.1 ng/mL 10.0-20.0 L code = 657) CBC W/PLT COUNT & AUTO [id number] 08:28:00 Test Item Value Reference Range Interpretation Comments WHITE BLOOD CELL COUNT (BEAKER) 31.2 K/ L 3.5-10.5 H (test code = 775) RED BLOOD CELL COUNT (BEAKER) 2.56 M/ L 4.63-6.08 L (test code = 761) HEMOGLOBIN (BEAKER) (test code = 8.0 GM/DL 13.7-17.5 L 410) HEMATOCRIT (BEAKER) (test code = 23.9 % 40.1-51.0 L 411) MEAN CORPUSCULAR VOLUME (BEAKER) 93.4 fL 79.0-92.2 H (test code = 753) MEAN CORPUSCULAR HEMOGLOBIN 31.3 pg 25.7-32.2 (BEAKER) (test code = 751) MEAN CORPUSCULAR HEMOGLOBIN CONC 33.5 GM/DL 32.3-36.5 (BEAKER) (test code = 752) RED CELL DISTRIBUTION WIDTH 15.0 % 11.6-14.4 H (BEAKER) (test code = 412) PLATELET COUNT (BEAKER) (test code 39 K/CU MM 150-450 L = 756) MEAN PLATELET VOLUME (BEAKER) 13.2 fL 9.4-12.4 H (test code = 754) NUCLEATED RED BLOOD CELLS (BEAKER) 1 /100 WBC 0-0 H (test code = 413) (CELLAVISION MANUAL DIFF)[id number] 08:28:00 Test Item Value Reference Range Interpretation Comments NEUTROPHILS - REL 92 % (CELLAVISION)(BEAKER) (test code = 2816) LYMPHOCYTES - REL 2 % (CELLAVISION)(BEAKER) (test code = 2817) MONOCYTES - REL 3 % (CELLAVISION)(BEAKER) (test code = 2818) MYELOCYTES - REL 3 % 0-0 H (CELLAVISION)(BEAKER) (test code = 2822) NEUTROPHILS - ABS 28.70 K/ul 1.78-5.38 H (CELLAVISION)(BEAKER) (test code = 2830) LYMPHOCYTES - ABS 0.62 K/ul 1.32-3.57 L (CELLAVISION)(BEAKER) (test code = 2831) MONOCYTES - ABS 0.94 K/uL 0.30-0.82 H (CELLAVISION)(BEAKER) (test code = 2832) MYELOCYTES-ABS 0.94 K/uL 0.00-0.00 H (CELLAVISION)(BEAKER) (test code = 2837) TOTAL COUNTED (BEAKER) (test code 100 = 1351) MANUAL NRBC PER 100 CELLS (BEAKER) 1 /100 WBC 0-0 H (test code = 1353) WBC MORPHOLOGY (BEAKER) (test code Normal = 487) PLT MORPHOLOGY (BEAKER) (test code Normal = 486) ANISOCYTOSIS (BEAKER) (test code = 1+ few 961) MICROCYTES (BEAKER) (test code = 1+ few 965) POIKILOCYTES (BEAKER) (test code = 1+ few 966) OVALOCYTES (BEAKER) (test code = 1+ few 477) BASOPHILIC STIPPLING (BEAKER) Present (test code = 473) ARTIFACT (CELLAVISION)(BEAKER) Present (test code = 3432) PLATELET CONCENTRATION Decreased (CELLAVISION)(BEAKER) (test code = 3438) Received comment: User comments: Slide comments:CALCIUM, [id number] 08:15:00 Test Item Value Reference Range Interpretation Comments CALCIUM IONIZED (BEAKER) (test 1.03 mmol/L 1.12-1.27 L code = 698) PH, BLOOD (BEAKER) (test code = 7.40 1810) RAD, CHEST, 1 VIEW, NON [id number] 07:27:00Reason for exam:->respiratory failureShould this be performed at the bedside?->YesFINAL REPORT Chest one view. Clinical history: respiratory failure Comparison: 01/02/2018 Discussion: A frontal chest is provided. Cardiomediastinal contours are unchanged. Lines and tubes are in stable position. Extensive bilateral interstitial and airspace opacities appear unchanged. Small right pleural effusion is suspected. No pneumothorax. Signed: Judy Perry Verified Date/Time: 01/03/2018 07:27:35 Reading Location: [facility] Radiology Reading Room POCT-GLUCOSE [id number] 06:51:00 Test Item Value Reference Range Interpretation Comments POC-GLUCOSE METER 230 mg/dL 70-110 H TESTED AT [facility] 6720 (BEAKER) (test code = PARESH Garcia [facility] 1538) [id number] 04:24:00 Test Item Value Reference Range Interpretation Comments MAGNESIUM (BEAKER) (test code = 2.1 mg/dL 1.6-2.6 627) BASIC METABOLIC [id number] 04:24:00 Test Item Value Reference Range Interpretation Comments SODIUM (BEAKER) 139 meq/L 136-145 (test code = 381) POTASSIUM (BEAKER) 3.8 meq/L 3.5-5.1 (test code = 379) CHLORIDE (BEAKER) 107 meq/L 98-107 (test code = 382) CO2 (BEAKER) (test 22 meq/L 22-29 code = 355) BLOOD UREA NITROGEN 40 mg/dL 7-21 H (BEAKER) (test code = 354) CREATININE (BEAKER) 1.60 mg/dL 0.57-1.25 H (test code = 358) GLUCOSE RANDOM 225 mg/dL 70-105 H (BEAKER) (test code = 652) CALCIUM (BEAKER) 8.4 mg/dL 8.4-10.2 (test code = 697) EGFR (BEAKER) (test 44 mL/min/1.73 ESTIMA ROBERTA GFR IS code = 1092) sq m NOT ACCURATE CREATININE CLEARANCE IN PREDICTING GLOMERULAR FILTRATION RATE . ESTIMATED GFR I S NOT APPLICABLE FOR DIALYSIS PATIEN TS. Specimen slightly ictericCALCIUM, [id number] 04:07:00 Test Item Value Reference Range Interpretation Comments CALCIUM IONIZED (BEAKER) (test 1.12 mmol/L 1.12-1.27 code = 698) PH, BLOOD (BEAKER) (test code = 7.39 1810) BLOOD GAS, [id number] 04:07:00 Test Item Value Reference Range Interpretation Comments PH ARTERIAL (BEAKER) (test code = 7.40 7.35-7.45 383) PCO2 ARTERIAL (BEAKER) (test code 41 mmHg 35-45 = 384) PO2 ARTERIAL (BEAKER) (test code = 94 mmHg 80-90 H 385) O2 SATURATION ARTERIAL (BEAKER) 97.4 % 96.0-97.0 H (test code = 386) HCO3 ARTERIAL (BEAKER) (test code 25 mmol/L 21-29 = 388) BASE EXCESS ARTERIAL (BEAKER) 0.0 mmol/L -2.0-3.0 (test code = 387) PATIENT TEMPERATURE (BEAKER) (test 36.4 C code = 1818) FIO2 (BEAKER) (test code = 1819) 40.0 % [id number] 01:24:00 Test Item Value Reference Range Interpretation Comments POTASSIUM (BEAKER) (test code = 4.0 meq/L 3.5-5.1 379) CALCIUM, [id number] 01:04:00 Test Item Value Reference Range Interpretation Comments CALCIUM IONIZED (BEAKER) (test 1.09 mmol/L 1.12-1.27 L code = 698) PH, BLOOD (BEAKER) (test code = 7.36 1810) POCT-GLUCOSE [id number] 00:16:00 Test Item Value Reference Range Interpretation Comments POC-GLUCOSE METER 227 mg/dL 70-110 H TESTED AT [facility] 6720 (BEAKER) (test code = PARESH WHITNEY 7285) [id number] 20:37:00 Test Item Value Reference Range Interpretation Comments POTASSIUM (BEAKER) (test code = 4.4 meq/L 3.5-5.1 379) [id number] 20:37:00 Test Item Value Reference Range Interpretation Comments MAGNESIUM (BEAKER) (test code = 1.9 mg/dL 1.6-2.6 627) [id number] 20:37:00 Test Item Value Reference Range Interpretation Comments PHOSPHORUS (BEAKER) (test code = 1.8 mg/dL 2.3-4.7 L 604) BASIC METABOLIC [id number] 18:56:00 Test Item Value Reference Range Interpretation Comments SODIUM (BEAKER) 136 meq/L 136-145 (test code = 381) POTASSIUM (BEAKER) 4.5 meq/L 3.5-5.1 (test code = 379) CHLORIDE (BEAKER) 105 meq/L 98-107 (test code = 382) CO2 (BEAKER) (test 22 meq/L 22-29 code = 355) BLOOD UREA NITROGEN 44 mg/dL 7-21 H (BEAKER) (test code = 354) CREATININE (BEAKER) 1.60 mg/dL 0.57-1.25 H (test code = 358) GLUCOSE RANDOM 235 mg/dL 70-105 H (BEAKER) (test code = 652) CALCIUM (BEAKER) 8.2 mg/dL 8.4-10.2 L (test code = 697) EGFR (BEAKER) (test 44 mL/min/1.73 ESTIMA ROBERTA GFR IS code = 1092) sq m NOT ACCURATE CREATININE CLEARANCE IN PREDICTING GLOMERULAR FILTRATION RATE . ESTIMATED GFR I S NOT APPLICABLE FOR DIALYSIS PATIEN TS. Specimen slightly ictericPOCT-GLUCOSE [id number] 18:20:00 Test Item Value Reference Range Interpretation Comments POC-GLUCOSE METER 224 mg/dL 70-110 H TESTED AT [facility] 6720 (BEAKER) (test code = JACQUELINEYULISA [place] 1538) [id number] 17:48:00 Test Item Value Reference Range Interpretation Comments POTASSIUM (BEAKER) 4.7 meq/L 3.5-5.1 Specimen slightly (test code = 379) hemolyzed CALCIUM, [id number] 17:35:00 Test Item Value Reference Range Interpretation Comments CALCIUM IONIZED (BEAKER) (test 1.12 mmol/L 1.12-1.27 code = 698) PH, BLOOD (BEAKER) (test code = 7.41 1810) PLATELET [id number] 17:35:00 Test Item Value Reference Range Interpretation Comments PLATELET COUNT (BEAKER) (test code 31 K/CU MM 150-450 L = 756) POCT-GLUCOSE [id number] 12:15:00 Test Item Value Reference Range Interpretation Comments POC-GLUCOSE METER 181 mg/dL 70-110 H TESTED AT [facility] 6720 (BEAKER) (test code = PARESH [place] 1538) [address] [id number] 10:15:00 Test Item Value Reference Range Interpretation Comments POTASSIUM (BEAKER) (test code = 4.4 meq/L 3.5-5.1 379) [id number] 10:15:00 Test Item Value Reference Range Interpretation Comments MAGNESIUM (BEAKER) (test code = 2.3 mg/dL 1.6-2.6 627) [id number] 10:15:00 Test Item Value Reference Range Interpretation Comments PHOSPHORUS (BEAKER) (test code = 2.2 mg/dL 2.3-4.7 L 604) BASIC METABOLIC [id number] 10:15:00 Test Item Value Reference Range Interpretation Comments SODIUM (BEAKER) 138 meq/L 136-145 (test code = 381) POTASSIUM (BEAKER) 4.4 meq/L 3.5-5.1 (test code = 379) CHLORIDE (BEAKER) 107 meq/L 98-107 (test code = 382) CO2 (BEAKER) (test 23 meq/L 22-29 code = 355) BLOOD UREA NITROGEN 48 mg/dL 7-21 H (BEAKER) (test code = 354) CREATININE (BEAKER) 1.52 mg/dL 0.57-1.25 H (test code = 358) GLUCOSE RANDOM 181 mg/dL 70-105 H (BEAKER) (test code = 652) CALCIUM (BEAKER) 8.5 mg/dL 8.4-10.2 (test code = 697) EGFR (BEAKER) (test 47 mL/min/1.73 ESTIMA ROBERTA GFR IS code = 1092) sq m NOT ACCURATE CREATININE CLEARANCE IN PREDICTING GLOMERULAR FILTRATION RATE . ESTIMATED GFR I S NOT APPLICABLE FOR DIALYSIS PATIEN TS. Specimen slightly ictericTACROLIMUS [id number] 09:21:00 Test Item Value Reference Range Interpretation Comments TACROLIMUS BLOOD (BEAKER) (test 7.8 ng/mL 10.0-20.0 L code = 657) CALCIUM, [id number] 09:15:00 Test Item Value Reference Range Interpretation Comments CALCIUM IONIZED (BEAKER) (test 1.15 mmol/L 1.12-1.27 code = 698) PH, BLOOD (BEAKER) (test code = 7.42 1810) RAD, CHEST, 1 VIEW, NON [id number] 09:14:00Reason for exam:->respiratory failureShould this be performed at the bedside?->YesFINAL REPORT CLINICAL HISTORY: respiratory failure TECHNIQUE: 1 view of the chest. COMPARISON: 01/01/2018 IMPRESSION: The supporting lines and tubes are unchanged. Diffuse bilateral pulmonary infiltrates are unchanged. A small right pleural effusion is again suspected. The cardiomediastinal silhouette is magnified by technique with sternotomy wires. Signed: Jad Isaac MDReport Verified Date/Time: 01/02/2018 09:14:20 Reading Location: [facility] Radiology Reading Room BLOOD GAS, [id number] 05:19:00 Test Item Value Reference Range Interpretation Comments PH ARTERIAL (BEAKER) (test code = 7.41 7.35-7.45 383) PCO2 ARTERIAL (BEAKER) (test code 39 mmHg 35-45 = 384) PO2 ARTERIAL (BEAKER) (test code 118 mmHg 80-90 H = 385) O2 SATURATION ARTERIAL (BEAKER) 98.4 % 96.0-97.0 H (test code = 386) HCO3 ARTERIAL (BEAKER) (test code 24 mmol/L 21-29 = 388) BASE EXCESS ARTERIAL (BEAKER) -0.5 mmol/L -2.0-3.0 (test code = 387) PATIENT TEMPERATURE (BEAKER) 36.1 C (test code = 1818) FIO2 (BEAKER) (test code = 1819) 40.0 % CBC W/PLT COUNT & AUTO [id number] 05:04:00 Test Item Value Reference Range Interpretation Comments WHITE BLOOD CELL COUNT (BEAKER) 9.8 K/ L 3.5-10.5 (test code = 775) RED BLOOD CELL COUNT (BEAKER) 2.64 M/ L 4.63-6.08 L (test code = 761) HEMOGLOBIN (BEAKER) (test code = 7.9 GM/DL 13.7-17.5 L 410) HEMATOCRIT (BEAKER) (test code = 24.2 % 40.1-51.0 L 411) MEAN CORPUSCULAR VOLUME (BEAKER) 91.7 fL 79.0-92.2 (test code = 753) MEAN CORPUSCULAR HEMOGLOBIN 29.9 pg 25.7-32.2 (BEAKER) (test code = 751) MEAN CORPUSCULAR HEMOGLOBIN CONC 32.6 GM/DL 32.3-36.5 (BEAKER) (test code = 752) RED CELL DISTRIBUTION WIDTH 14.7 % 11.6-14.4 H (BEAKER) (test code = 412) PLATELET COUNT (BEAKER) (test code 19 K/CU MM 150-450 L = 756) MEAN PLATELET VOLUME (BEAKER) 12.4 fL 9.4-12.4 (test code = 754) NUCLEATED RED BLOOD CELLS (BEAKER) 0 /100 WBC 0-0 (test code = 413) NEUTROPHILS RELATIVE PERCENT 92 % (BEAKER) (test code = 429) LYMPHOCYTES RELATIVE PERCENT 2 % (BEAKER) (test code = 430) MONOCYTES RELATIVE PERCENT 4 % (BEAKER) (test code = 431) EOSINOPHILS RELATIVE PERCENT 0 % (BEAKER) (test code = 432) BASOPHILS RELATIVE PERCENT 0 % (BEAKER) (test code = 437) NEUTROPHILS ABSOLUTE COUNT 9.08 K/ L 1.78-5.38 H (BEAKER) (test code = 670) LYMPHOCYTES ABSOLUTE COUNT 0.23 K/ L 1.32-3.57 L (BEAKER) (test code = 414) MONOCYTES ABSOLUTE COUNT (BEAKER) 0.35 K/ L 0.30-0.82 (test code = 415) EOSINOPHILS ABSOLUTE COUNT 0.02 K/ L 0.04-0.54 L (BEAKER) (test code = 416) BASOPHILS ABSOLUTE COUNT (BEAKER) 0.01 K/ L 0.01-0.08 (test code = 417) IMMATURE GRANULOCYTES-RELATIVE 2 % 0-1 H PERCENT (BEAKER) (test code = 2801) BASIC METABOLIC [id number] 05:04:00 Test Item Value Reference Range Interpretation Comments SODIUM (BEAKER) 137 meq/L 136-145 (test code = 381) POTASSIUM (BEAKER) 4.0 meq/L 3.5-5.1 (test code = 379) CHLORIDE (BEAKER) 105 meq/L 98-107 (test code = 382) CO2 (BEAKER) (test 22 meq/L 22-29 code = 355) BLOOD UREA NITROGEN 48 mg/dL 7-21 H (BEAKER) (test code = 354) CREATININE (BEAKER) 1.53 mg/dL 0.57-1.25 H (test code = 358) GLUCOSE RANDOM 220 mg/dL 70-105 H (BEAKER) (test code = 652) CALCIUM (BEAKER) 8.5 mg/dL 8.4-10.2 (test code = 697) EGFR (BEAKER) (test 47 mL/min/1.73 ESTIMA ROBERTA GFR IS code = 1092) sq m NOT ACCURATE CREATININE CLEARANCE IN PREDICTING GLOMERULAR FILTRATION RATE . ESTIMATED GFR I S NOT APPLICABLE FOR DIALYSIS PATIEN TS. Specimen slightly ictericCALCIUM, [id number] 04:48:00 Test Item Value Reference Range Interpretation Comments CALCIUM IONIZED (BEAKER) (test 1.10 mmol/L 1.12-1.27 L code = 698) PH, BLOOD (BEAKER) (test code = 7.39 1810) [id number] 01:06:00 Test Item Value Reference Range Interpretation Comments POTASSIUM (BEAKER) (test code = 4.2 meq/L 3.5-5.1 379) CALCIUM, [id number] 00:53:00 Test Item Value Reference Range Interpretation Comments CALCIUM IONIZED (BEAKER) (test 1.17 mmol/L 1.12-1.27 code = 698) PH, BLOOD (BEAKER) (test code = 7.36 1810) POCT-GLUCOSE [id number] 00:37:00 Test Item Value Reference Range Interpretation Comments POC-GLUCOSE METER 233 mg/dL 70-110 H TESTED AT [facility] 6720 (BEAKER) (test code = PARESH Garcia [place] 1538) [address] [id number] 21:09:00 Test Item Value Reference Range Interpretation Comments POTASSIUM (BEAKER) (test code = 4.2 meq/L 3.5-5.1 379) [id number] 21:09:00 Test Item Value Reference Range Interpretation Comments MAGNESIUM (BEAKER) (test code = 2.1 mg/dL 1.6-2.6 627) [id number] 21:09:00 Test Item Value Reference Range Interpretation Comments PHOSPHORUS (BEAKER) (test code = 2.3 mg/dL 2.3-4.7 604) POCT-GLUCOSE [id number] 18:00:00 Test Item Value Reference Range Interpretation Comments POC-GLUCOSE METER 262 mg/dL 70-110 H TESTED AT [place] [address] [facility] (test code = JACQUELINEOR Jose [facility] 1538) [address] BASIC METABOLIC [id number] 17:51:00 Test Item Value Reference Range Interpretation Comments SODIUM (BEAKER) 137 meq/L 136-145 (test code = 381) POTASSIUM (BEAKER) 3.8 meq/L 3.5-5.1 (test code = 379) CHLORIDE (BEAKER) 105 meq/L 98-107 (test code = 382) CO2 (BEAKER) (test 20 meq/L 22-29 L code = 355) BLOOD UREA NITROGEN 55 mg/dL 7-21 H (BEAKER) (test code = 354) CREATININE (BEAKER) 1.78 mg/dL 0.57-1.25 H (test code = 358) GLUCOSE RANDOM 234 mg/dL 70-105 H (BEAKER) (test code = 652) CALCIUM (BEAKER) 8.3 mg/dL 8.4-10.2 L (test code = 697) EGFR (BEAKER) (test 39 mL/min/1.73 ESTIMA ROBERTA GFR IS code = 1092) sq m NOT ACCURATE CREATININE CLEARANCE IN PREDICTING GLOMERULAR FILTRATION RATE . ESTIMATED GFR I S NOT APPLICABLE FOR DIALYSIS PATIEN TS. Specimen slightly ictericVANCOMYCIN LEVEL, [id number] 17:51:00 Test Item Value Reference Range Interpretation Comments VANCOMYCIN TROUGH (BEAKER) (test 11.6 ug/mL 10.0-20.0 code = 522) CALCIUM, [id number] 17:26:00 Test Item Value Reference Range Interpretation Comments CALCIUM IONIZED (BEAKER) (test 1.09 mmol/L 1.12-1.27 L code = 698) PH, BLOOD (BEAKER) (test code = 7.38 1810) [id number] 14:04:00 Test Item Value Reference Range Interpretation Comments POTASSIUM (BEAKER) (test code = 4.0 meq/L 3.5-5.1 379) BRONCHIAL CULTURE + GRAM [id number] 13:45:00 Test Item Value Reference Range Interpretation Comments CULTURE (BEAKER) (test code No growth = 1095) GRAM STAIN RESULT (BEAKER) 1+ WBCs (test code = 1123) GRAM STAIN RESULT (BEAKER) No organisms seen (test code = 39442) POCT-GLUCOSE [id number] 13:12:00 Test Item Value Reference Range Interpretation Comments POC-GLUCOSE METER 210 mg/dL 70-110 H TESTED AT [facility] 6720 (BEAKER) (test code = JACQUELINEYULISA [place] 1538) [address] BLOOD GAS, [id number] 11:50:00 Test Item Value Reference Range Interpretation Comments PH ARTERIAL (BEAKER) (test code = 7.39 7.35-7.45 383) PCO2 ARTERIAL (BEAKER) (test code 34 mmHg 35-45 L = 384) PO2 ARTERIAL (BEAKER) (test code 94 mmHg 80-90 H = 385) O2 SATURATION ARTERIAL (BEAKER) 97.3 % 96.0-97.0 H (test code = 386) HCO3 ARTERIAL (BEAKER) (test code 20 mmol/L 21-29 L = 388) BASE EXCESS ARTERIAL (BEAKER) -4.1 mmol/L -2.0-3.0 L (test code = 387) PATIENT TEMPERATURE (BEAKER) 36.8 C (test code = 1818) FIO2 (BEAKER) (test code = 1819) 40.0 % [id number] 09:26:00 Test Item Value Reference Range Interpretation Comments POTASSIUM (BEAKER) (test code = 4.3 meq/L 3.5-5.1 379) [id number] 09:26:00 Test Item Value Reference Range Interpretation Comments MAGNESIUM (BEAKER) (test code = 2.1 mg/dL 1.6-2.6 627) [id number] 09:26:00 Test Item Value Reference Range Interpretation Comments PHOSPHORUS (BEAKER) (test code = 3.0 mg/dL 2.3-4.7 604) TACROLIMUS [id number] 09:06:00 Test Item Value Reference Range Interpretation Comments TACROLIMUS BLOOD (BEAKER) (test 7.8 ng/mL 10.0-20.0 L code = 657) POCT-GLUCOSE [id number] 08:39:00 Test Item Value Reference Range Interpretation Comments POC-GLUCOSE METER 255 mg/dL 70-110 H TESTED AT [facility] 6720 (BEAKER) (test code = PARESH Garcia [place] 1538) [address] CALCIUM, [id number] 08:34:00 Test Item Value Reference Range Interpretation Comments CALCIUM IONIZED (BEAKER) (test 1.14 mmol/L 1.12-1.27 code = 698) PH, BLOOD (BEAKER) (test code = 7.39 1810) CBC W/PLT COUNT & AUTO [id number] 07:35:00 Test Item Value Reference Range Interpretation Comments WHITE BLOOD CELL COUNT (BEAKER) 15.0 K/ L 3.5-10.5 H (test code = 775) RED BLOOD CELL COUNT (BEAKER) 2.72 M/ L 4.63-6.08 L (test code = 761) HEMOGLOBIN (BEAKER) (test code = 8.1 GM/DL 13.7-17.5 L 410) HEMATOCRIT (BEAKER) (test code = 24.8 % 40.1-51.0 L 411) MEAN CORPUSCULAR VOLUME (BEAKER) 91.2 fL 79.0-92.2 (test code = 753) MEAN CORPUSCULAR HEMOGLOBIN 29.8 pg 25.7-32.2 (BEAKER) (test code = 751) MEAN CORPUSCULAR HEMOGLOBIN CONC 32.7 GM/DL 32.3-36.5 (BEAKER) (test code = 752) RED CELL DISTRIBUTION WIDTH 15.1 % 11.6-14.4 H (BEAKER) (test code = 412) PLATELET COUNT (BEAKER) (test code 30 K/CU MM 150-450 L = 756) MEAN PLATELET VOLUME (BEAKER) 12.1 fL 9.4-12.4 (test code = 754) NUCLEATED RED BLOOD CELLS (BEAKER) 0 /100 WBC 0-0 (test code = 413) (CELLAVISION MANUAL DIFF)[id number] 07:35:00 Test Item Value Reference Range Interpretation Comments NEUTROPHILS - REL 94 % (CELLAVISION)(BEAKER) (test code = 2816) LYMPHOCYTES - REL 2 % (CELLAVISION)(BEAKER) (test code = 2817) MONOCYTES - REL 4 % (CELLAVISION)(BEAKER) (test code = 2818) NEUTROPHILS - ABS 14.10 K/ul 1.78-5.38 H (CELLAVISION)(BEAKER) (test code = 2830) LYMPHOCYTES - ABS 0.30 K/ul 1.32-3.57 L (CELLAVISION)(BEAKER) (test code = 2831) MONOCYTES - ABS 0.60 K/uL 0.30-0.82 (CELLAVISION)(BEAKER) (test code = 2832) TOTAL COUNTED (BEAKER) (test code 100 = 1351) MANUAL NRBC PER 100 CELLS 1 /100 WBC 0-0 H (BEAKER) (test code = 1353) WBC MORPHOLOGY (BEAKER) (test Normal code = 487) PLT MORPHOLOGY (BEAKER) (test Normal code = 486) ANISOCYTOSIS (BEAKER) (test code 1+ few = 961) MICROCYTES (BEAKER) (test code = 1+ few 965) POIKILOCYTES (BEAKER) (test code 2+ moderate = 966) OVALOCYTES (BEAKER) (test code = 1+ few 477) ARTIFACT (CELLAVISION)(BEAKER) Present (test code = 3432) PLATELET CONCENTRATION Decreased (CELLAVISION)(BEAKER) (test code = 3438) Received comment: User comments: Slide comments:BLOOD GAS, [id number] 06:11:00 Test Item Value Reference Range Interpretation Comments PH ARTERIAL (BEAKER) (test code = 7.36 7.35-7.45 383) PCO2 ARTERIAL (BEAKER) (test code 36 mmHg 35-45 = 384) PO2 ARTERIAL (BEAKER) (test code 107 mmHg 80-90 H = 385) O2 SATURATION ARTERIAL (BEAKER) 97.9 % 96.0-97.0 H (test code = 386) HCO3 ARTERIAL (BEAKER) (test code 20 mmol/L 21-29 L = 388) BASE EXCESS ARTERIAL (BEAKER) -5.0 mmol/L -2.0-3.0 L (test code = 387) PATIENT TEMPERATURE (BEAKER) 36.4 C (test code = 1818) FIO2 (BEAKER) (test code = 1819) 40.0 % BLOOD [id number] 06:00:00 Test Item Value Reference Range Interpretation Comments CULTURE (BEAKER) (test No growth in 5 days code = 1095) BLOOD [id number] 06:00:00 Test Item Value Reference Range Interpretation Comments CULTURE (BEAKER) (test No growth in 5 days code = 1095) RAD, CHEST, 1 VIEW, NON [id number] 05:37:00Reason for exam:->shortness of breathShould this be performed at the bedside?->YesFINAL REPORT Comparison exam: 12/31/2017 Diffuse bilateral pulmonary opacities, unchanged. Blunting of the right costophrenic angle. Stable cardiomediastinal contours. Appropriate position of the support hardware. Signed: Mio Fink Verified Date/Time: 01/01/2018 05:37:06 Reading Location: [address] Transitional Reading Room BASIC METABOLIC [id number] 05:06:00 Test Item Value Reference Range Interpretation Comments SODIUM (BEAKER) 136 meq/L 136-145 (test code = 381) POTASSIUM (BEAKER) 4.6 meq/L 3.5-5.1 (test code = 379) CHLORIDE (BEAKER) 104 meq/L 98-107 (test code = 382) CO2 (BEAKER) (test 19 meq/L 22-29 L code = 355) BLOOD UREA NITROGEN 63 mg/dL 7-21 H (BEAKER) (test code = 354) CREATININE (BEAKER) 1.99 mg/dL 0.57-1.25 H (test code = 358) GLUCOSE RANDOM 188 mg/dL 70-105 H (BEAKER) (test code = 652) CALCIUM (BEAKER) 9.0 mg/dL 8.4-10.2 (test code = 697) EGFR (BEAKER) (test 34 mL/min/1.73 ESTIMA ROBERTA GFR IS code = 1092) sq m NOT ACCURATE CREATININE CLEARANCE IN PREDICTING GLOMERULAR FILTRATION RATE . ESTIMATED GFR I S NOT APPLICABLE FOR DIALYSIS PATIEN TS. Specimen slightly [id number] 01:21:00 Test Item Value Reference Range Interpretation Comments POTASSIUM (BEAKER) (test code = 4.3 meq/L 3.5-5.1 379) CRYPTOCOCCAL [id number] 01:09:00 Test Item Value Reference Range Interpretation Comments CRYPTOCOCCAL ANTIGEN, SERUM Negative Negative, Interference (BEAKER) (test code = 1828) CALCIUM, [id number] 00:26:00 Test Item Value Reference Range Interpretation Comments CALCIUM IONIZED (BEAKER) (test 1.09 mmol/L 1.12-1.27 L code = 698) PH, BLOOD (BEAKER) (test code = 7.38 1810) POCT-GLUCOSE [id number] 00:02:00 Test Item Value Reference Range Interpretation Comments POC-GLUCOSE METER 165 mg/dL 70-110 H TESTED AT [facility] 67 ([facility]) (test code = [facility] 1538) [address] [id number] 21:18:00 Test Item Value Reference Range Interpretation Comments POTASSIUM (BEAKER) (test code = 4.6 meq/L 3.5-5.1 379) [id number] 21:18:00 Test Item Value Reference Range Interpretation Comments MAGNESIUM (BEAKER) (test code = 2.1 mg/dL 1.6-2.6 627) [id number] 21:18:00 Test Item Value Reference Range Interpretation Comments PHOSPHORUS (BEAKER) (test code = 4.2 mg/dL 2.3-4.7 604) POCT-GLUCOSE [id number] 18:03:00 Test Item Value Reference Range Interpretation Comments POC-GLUCOSE METER 142 mg/dL 70-110 H TESTED AT [facility] 6720 ([facility]) (test code = [facility] 1538) [address] BLOOD GAS, [id number] 17:55:00 Test Item Value Reference Range Interpretation Comments PH ARTERIAL (BEAKER) (test code = 7.37 7.35-7.45 383) PCO2 ARTERIAL (BEAKER) (test code 38 mmHg 35-45 = 384) PO2 ARTERIAL (BEAKER) (test code 94 mmHg 80-90 H = 385) O2 SATURATION ARTERIAL (BEAKER) 96.8 % 96.0-97.0 (test code = 386) HCO3 ARTERIAL (BEAKER) (test code 21 mmol/L 21-29 = 388) BASE EXCESS ARTERIAL (BEAKER) -3.7 mmol/L -2.0-3.0 L (test code = 387) PATIENT TEMPERATURE (BEAKER) 37.5 C (test code = 1818) FIO2 (BEAKER) (test code = 1819) 40.0 % [id number] 17:29:00 Test Item Value Reference Range Interpretation Comments POTASSIUM (BEAKER) (test code = 4.9 meq/L 3.5-5.1 379) CALCIUM, [id number] 16:38:00 Test Item Value Reference Range Interpretation Comments CALCIUM IONIZED (BEAKER) (test 1.05 mmol/L 1.12-1.27 L code = 698) PH, BLOOD (BEAKER) (test code = 7.37 1810) [id number] 14:13:00Medical Cytology Report Case: [id number] Authorizing Provider: Yary Eastman MD Collected: 12/30/2017 1434 Ordering Location: [address] Received: 12/30/2017 1620 Pathologist: Sarita Painter MD Specimen: Lung, Right Middle Lobe, BAL RIGHT MIDDLE LOBELUNG, BAL (CYTOSPINS): - NEGATIVE FOR MALIGNANCY LIMITED BY OBSCURING ACUTE INFLAMMATION AND SCANT PULMONARY ELEMENTS The GMS stains are negative for Pneumocystis organisms and other fungi. No viral inclusions are seen. 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.RIGHT MIDDLE LOBE LUNG BALPrepared 3 cytospins, 1 iron stain and 1 GMS from 40 ml cytorich red fixative sampleCollected: [id number]: [id number] following special studies were performed on this case and the interpretation is incorporated in the diagnostic report above:GMS, [facility], Department of Pathology, [address] [place] [address], [facility], [facility] of [facility]ology, [address] [place] [address], [facility], Department of Pathology, [address] [place] [address], [id number] 13:49:00 Test Item Value Reference Range Interpretation Comments POTASSIUM (BEAKER) (test code = 4.9 meq/L 3.5-5.1 379) RAD, ABDOMEN/KUB, 1 VIEW [id number] 13:24:00Reason for exam:->corpak placement Should this be [...] mass or calcification. No fracture. Signed: Micheal Crenshaweport Verified Date/Time: 12/31/2017 13:24:39 Reading Location: [facility] Radiology Reading Room POCT-GLUCOSE [id number] 12:27:00 Test Item Value Reference Range Interpretation Comments POC-GLUCOSE METER 170 mg/dL 70-110 H TESTED AT [place] [address] (BEAKER) (test code = PARESH Garcia [facility] 1538) [address] SPIN/CONCENTRATION [id number] 12:24:00 Test Item Value Reference Range Interpretation Comments CONCENTRATION CHARGED (BEAKER) (test Done code = 2657) [id number] 09:52:00 Test Item Value Reference Range Interpretation Comments POTASSIUM (BEAKER) (test code = 4.7 meq/L 3.5-5.1 379) [id number] 09:52:00 Test Item Value Reference Range Interpretation Comments MAGNESIUM (BEAKER) (test code = 2.3 mg/dL 1.6-2.6 627) [id number] 09:52:00 Test Item Value Reference Range Interpretation Comments PHOSPHORUS (BEAKER) (test code = 5.3 mg/dL 2.3-4.7 H 604) TACROLIMUS [id number] 08:55:00 Test Item Value Reference Range Interpretation Comments TACROLIMUS BLOOD (BEAKER) (test 7.2 ng/mL 10.0-20.0 L code = 657) CALCIUM, [id number] 08:29:00 Test Item Value Reference Range Interpretation Comments CALCIUM IONIZED (BEAKER) (test 1.01 mmol/L 1.12-1.27 L code = 698) PH, BLOOD (BEAKER) (test code = 7.36 1810) Check serum Ionized Calcium level after 4 hours after IV Calcium replacement. RAD, CHEST, 1 VIEW, NON [id number] 06:37:00Reason for exam:->shortness of breathShould this be performed at the bedside?->YesFINAL REPORT Comparison exam: 12/30/2017 Extensive bilateral airspace opacities unchanged. Stable cardiomediastinal contours. Appropriate position of the support hardware. Signed: Mio Fink MDReport Verified Date/Time: 12/31/2017 06:37:39 Reading Location: [address] Transitional Reading Room BASIC METABOLIC [id number] 04:02:00 Test Item Value Reference Range Interpretation Comments SODIUM (BEAKER) 138 meq/L 136-145 (test code = 381) POTASSIUM (BEAKER) 5.3 meq/L 3.5-5.1 H (test code = 379) CHLORIDE (BEAKER) 103 meq/L 98-107 (test code = 382) CO2 (BEAKER) (test 17 meq/L 22-29 L code = 355) BLOOD UREA NITROGEN 91 mg/dL 7-21 H (BEAKER) (test code = 354) CREATININE (BEAKER) 2.53 mg/dL 0.57-1.25 H (test code = 358) GLUCOSE RANDOM 143 mg/dL 70-105 H (BEAKER) (test code = 652) CALCIUM (BEAKER) 8.1 mg/dL 8.4-10.2 L (test code = 697) EGFR (BEAKER) (test 26 mL/min/1.73 ESTIMA ROBERTA GFR IS code = 1092) sq m NOT ACCURATE CREATININE CLEARANCE IN PREDICTING GLOMERULAR FILTRATION RATE . ESTIMATED GFR I S NOT APPLICABLE FOR DIALYSIS PATIEN TS. Specimen slightly ictericHEPATIC FUNCTION [id number] 03:57:00 Test Item Value Reference Range Interpretation Comments TOTAL PROTEIN (BEAKER) (test code = 4.4 gm/dL 6.0-8.3 L 770) ALBUMIN (BEAKER) (test code = 1145) 3.0 g/dL 3.5-5.0 L BILIRUBIN TOTAL (BEAKER) (test code 3.7 mg/dL 0.2-1.2 H = 377) BILIRUBIN DIRECT (BEAKER) (test 2.8 mg/dL 0.1-0.5 H code = 706) ALKALINE PHOSPHATASE (BEAKER) (test 116 U/L 40-150 code = 346) AST (SGOT) (BEAKER) (test code = 58 U/L 5-34 H 353) ALT (SGPT) (BEAKER) (test code = 62 U/L 6-55 H 347) Specimen slightly ictericCBC W/PLT COUNT & AUTO [id number] 03:43:00 Test Item Value Reference Range Interpretation Comments WHITE BLOOD CELL COUNT (BEAKER) 16.2 K/ L 3.5-10.5 H (test code = 775) RED BLOOD CELL COUNT (BEAKER) 2.44 M/ L 4.63-6.08 L (test code = 761) HEMOGLOBIN (BEAKER) (test code = 7.4 GM/DL 13.7-17.5 L 410) HEMATOCRIT (BEAKER) (test code = 22.7 % 40.1-51.0 L 411) MEAN CORPUSCULAR VOLUME (BEAKER) 93.0 fL 79.0-92.2 H (test code = 753) MEAN CORPUSCULAR HEMOGLOBIN 30.3 pg 25.7-32.2 (BEAKER) (test code = 751) MEAN CORPUSCULAR HEMOGLOBIN CONC 32.6 GM/DL 32.3-36.5 (BEAKER) (test code = 752) RED CELL DISTRIBUTION WIDTH 15.4 % 11.6-14.4 H (BEAKER) (test code = 412) PLATELET COUNT (BEAKER) (test code 40 K/CU MM 150-450 L = 756) MEAN PLATELET VOLUME (BEAKER) 12.0 fL 9.4-12.4 (test code = 754) NUCLEATED RED BLOOD CELLS (BEAKER) 0 /100 WBC 0-0 (test code = 413) NEUTROPHILS RELATIVE PERCENT 92 % (BEAKER) (test code = 429) LYMPHOCYTES RELATIVE PERCENT 1 % (BEAKER) (test code = 430) MONOCYTES RELATIVE PERCENT 7 % (BEAKER) (test code = 431) EOSINOPHILS RELATIVE PERCENT 0 % (BEAKER) (test code = 432) BASOPHILS RELATIVE PERCENT 0 % (BEAKER) (test code = 437) NEUTROPHILS ABSOLUTE COUNT 14.94 K/ L 1.78-5.38 H (BEAKER) (test code = 670) LYMPHOCYTES ABSOLUTE COUNT 0.16 K/ L 1.32-3.57 L (BEAKER) (test code = 414) MONOCYTES ABSOLUTE COUNT (BEAKER) 1.09 K/ L 0.30-0.82 H (test code = 415) EOSINOPHILS ABSOLUTE COUNT 0.00 K/ L 0.04-0.54 L (BEAKER) (test code = 416) BASOPHILS ABSOLUTE COUNT (BEAKER) 0.01 K/ L 0.01-0.08 (test code = 417) IMMATURE GRANULOCYTES-RELATIVE 0 % 0-1 PERCENT (BEAKER) (test code = 2801) BLOOD GAS, [id number] 03:30:00 Test Item Value Reference Range Interpretation Comments PH ARTERIAL (BEAKER) (test code = 7.34 7.35-7.45 L 383) PCO2 ARTERIAL (BEAKER) (test code 42 mmHg 35-45 = 384) PO2 ARTERIAL (BEAKER) (test code 191 mmHg 80-90 H = 385) O2 SATURATION ARTERIAL (BEAKER) 99.2 % 96.0-97.0 H (test code = 386) HCO3 ARTERIAL (BEAKER) (test code 22 mmol/L 21-29 = 388) BASE EXCESS ARTERIAL (BEAKER) -3.8 mmol/L -2.0-3.0 L (test code = 387) PATIENT TEMPERATURE (BEAKER) 37.0 C (test code = 1818) FIO2 (BEAKER) (test code = 1819) 65.0 % OXYGEN SATURATION, [id number] 01:31:00 Test Item Value Reference Range Interpretation Comments O2 SATURATION (MEASURED) (BEAKER) 87.4 % (test code = 1455) CALCIUM, [id number] 01:26:00 Test Item Value Reference Range Interpretation Comments CALCIUM IONIZED (BEAKER) (test 0.93 mmol/L 1.12-1.27 L code = 698) PH, BLOOD (BEAKER) (test code = 7.32 1810) Check serum Ionized Calcium level after 4 hours after IV Calcium replacement. BLOOD GAS, [id number] 01:12:00 Test Item Value Reference Range Interpretation Comments PH ARTERIAL (BEAKER) (test code = 7.29 7.35-7.45 L 383) PCO2 ARTERIAL (BEAKER) (test code 41 mmHg 35-45 = 384) PO2 ARTERIAL (BEAKER) (test code 193 mmHg 80-90 H = 385) O2 SATURATION ARTERIAL (BEAKER) 99.1 % 96.0-97.0 H (test code = 386) HCO3 ARTERIAL (BEAKER) (test code 19 mmol/L 21-29 L = 388) BASE EXCESS ARTERIAL (BEAKER) -7.1 mmol/L -2.0-3.0 L (test code = 387) PATIENT TEMPERATURE (BEAKER) 37.0 C (test code = 1818) FIO2 (BEAKER) (test code = 1819) 80.0 % BASIC METABOLIC [id number] 00:59:00 Test Item Value Reference Range Interpretation Comments SODIUM (BEAKER) 137 meq/L 136-145 (test code = 381) POTASSIUM (BEAKER) 5.5 meq/L 3.5-5.1 H (test code = 379) CHLORIDE (BEAKER) 103 meq/L 98-107 (test code = 382) CO2 (BEAKER) (test 16 meq/L 22-29 L code = 355) BLOOD UREA NITROGEN 98 mg/dL 7-21 H (BEAKER) (test code = 354) CREATININE (BEAKER) 2.62 mg/dL 0.57-1.25 H (test code = 358) GLUCOSE RANDOM 150 mg/dL 70-105 H (BEAKER) (test code = 652) CALCIUM (BEAKER) 7.5 mg/dL 8.4-10.2 L (test code = 697) EGFR (BEAKER) (test 25 mL/min/1.73 ESTIMA ROBERTA GFR IS code = 1092) sq m NOT ACCURATE CREATININE CLEARANCE IN PREDICTING GLOMERULAR FILTRATION RATE . ESTIMATED GFR I S NOT APPLICABLE FOR DIALYSIS PATIEN TS. Specimen slightly [id number] 00:57:00 Test Item Value Reference Range Interpretation Comments MAGNESIUM (BEAKER) (test code = 2.2 mg/dL 1.6-2.6 627) LACTIC ACID, ARTERIAL, WHOLE [id number] 00:55:00 Test Item Value Reference Range Interpretation Comments LACTATE BLOOD ARTERIAL (2) 1.3 mmol/L 0.5-2.2 (BEAKER) (test code = 2874) Effective 11/02/2015: Units/Reference Range ChangeNew: 0.5-2.2 mmol/L Previous: 5-20 mg/dLSpecimen slightly [id number] 22:04:00 Test Item Value Reference Range Interpretation Comments POTASSIUM (BEAKER) (test code = 5.7 meq/L 3.5-5.1 H 379) [id number] 20:35:00 Test Item Value Reference Range Interpretation Comments PHOSPHORUS (BEAKER) (test code = 6.9 mg/dL 2.3-4.7 H 604) [id number] 20:35:00 Test Item Value Reference Range Interpretation Comments MAGNESIUM (BEAKER) (test code = 2.2 mg/dL 1.6-2.6 627) BODY FLUID CELL COUNT WITH [id number] 18:56:00 Test Item Value Reference Range Interpretation Comments APPEARANCE FLUID (BEAKER) Moderately Bloody Clear A (test code = 510) COLOR FLUID (BEAKER) (test Colorless Colorless, Straw code = 511) RBC FLUID (BEAKER) (test 60646 /cu mm <=1 H code = 513) ADJUSTED WBC FLUID 859 /cu mm <=5 H (BEAKER) (test code = 1691) LINING CELLS (BEAKER) 0 /cu mm <=1 (test code = 1590) NEUTROPHILS FLUID (BEAKER) 88 % (test code = 1656) LYMPHS FLUID (BEAKER) 3 % (test code = 488) MONO/MACROPHAGE FLUID 9 % (BEAKER) (test code = 489) EOSINOPHILS FLUID (BEAKER) 0 % (test code = 491) BASO FLUID (BEAKER) (test 0 % code = 492) CONTAINER BODY FLUID EDTA Tube (BEAKER) (test code = 2873) POCT-GLUCOSE [id number] 18:40:00 Test Item Value Reference Range Interpretation Comments POC-GLUCOSE METER 156 mg/dL 70-110 H TESTED AT [facility] 6720 (BEAKER) (test code = [place] 1538) [address] BLOOD GAS, [id number] 18:15:00 Test Item Value Reference Range Interpretation Comments PH ARTERIAL (BEAKER) (test code = 7.27 7.35-7.45 L 383) PCO2 ARTERIAL (BEAKER) (test code 38 mmHg 35-45 = 384) PO2 ARTERIAL (BEAKER) (test code 147 mmHg 80-90 H = 385) O2 SATURATION ARTERIAL (BEAKER) 98.7 % 96.0-97.0 H (test code = 386) HCO3 ARTERIAL (BEAKER) (test code 17 mmol/L 21-29 L = 388) BASE EXCESS ARTERIAL (BEAKER) -9.3 mmol/L -2.0-3.0 L (test code = 387) PATIENT TEMPERATURE (BEAKER) 36.0 C (test code = 1818) FIO2 (BEAKER) (test code = 1819) 80.0 % U/S, RENAL, [id number] 18:05:00Reason for exam:->NOHEMI AND ASSESS PVR FINAL REPORT Renal ultrasound Comparison: No comparison ultrasounds ClinicalHistory: Acute kidney injury Technique:Sonographic evaluation of the kidneys was performed. 36 images were submitted for interpretation, using a five MHz transducer. Right kidney:The kidney measures 9 .4 cm in length. The cortical echogenicity is increased. The cortex measures 1.1 cm. There is no evidence of a focal mass. There is no evidence of hydronephrosis. There is no evidence of a shadowing stone. There is no evidence of a cyst. There is no evidence of a perinephric fluid collection. F low was visualized to the right kidney. Left [...] of hydronephrosis. There is increased echogenicity bilaterally. Signed: Andrea Bates MDReport Verified Date/Time: 12/30/2017 18:05:19 Reading Location: [facility] [id number] [facility] CYTOLOGY [id number] 18:00:00 Test Item Value Reference Range Interpretation Comments CYTOLOGY RESULT POINTER See Separate Report (BEAKER) (test code = 2629) BASIC METABOLIC [id number] 15:00:00 Test Item Value Reference Range Interpretation Comments SODIUM (BEAKER) 139 meq/L 136-145 (test code = 381) POTASSIUM (BEAKER) 5.2 meq/L 3.5-5.1 H (test code = 379) CHLORIDE (BEAKER) 98 meq/L 98-107 (test code = 382) CO2 (BEAKER) (test 17 meq/L 22-29 L code = 355) BLOOD UREA NITROGEN 114 mg/dL 7-21 H (BEAKER) (test code = 354) CREATININE (BEAKER) 3.17 mg/dL 0.57-1.25 H (test code = 358) GLUCOSE RANDOM 144 mg/dL 70-105 H (BEAKER) (test code = 652) CALCIUM (BEAKER) 8.4 mg/dL 8.4-10.2 (test code = 697) EGFR (BEAKER) (test 20 mL/min/1.73 ESTIMA ROBERTA GFR IS code = 1092) sq m NOT ACCURATE CREATININE CLEARANCE IN PREDICTING GLOMERULAR FILTRATION RATE . ESTIMATED GFR I S NOT APPLICABLE FOR DIALYSIS PATIEN TS. Specimen slightly [id number] 14:59:00 Test Item Value Reference Range Interpretation Comments MAGNESIUM (BEAKER) (test code = 2.4 mg/dL 1.6-2.6 627) RAD, CHEST, 1 VIEW, NON [id number] 14:45:00Reason for exam:->s/p intubation and dialysis line placementFINAL REPORT AP chest, two images HISTORY: Intubation COMPARISON: 12/30/2017 IMP RESSION:Endotracheal tube placed in satisfactory position. Left IJ catheter present with tip at upper SVC. Right arm PICC present. Stable cardiac silhouette. Diffuse airspace disease in both lungs may reflect edema, pneumonia or ARDS. No pneumothorax. Signed: Damari Ocampo MDReport Verified Date/Time: 12/30/2017 14:45:29 Reading Location: [facility] Reading Room CALCIUM, IONIZED 2017-12-30 14:42:00 Test Item Value Reference Range Interpretation Comments CALCIUM IONIZED (BEAKER) (test 1.02 mmol/L 1.12-1.27 L code = 698) PH, BLOOD (BEAKER) (test code = 7.21 1810) Check serum Ionized Calcium level after 4 hours after IV Calcium replacement. BLOOD GAS, [id number] 14:42:00 Test Item Value Reference Range Interpretation Comments PH ARTERIAL (BEAKER) (test code = 7.21 7.35-7.45 L 383) PCO2 ARTERIAL (BEAKER) (test code 45 mmHg 35-45 = 384) PO2 ARTERIAL (BEAKER) (test code 88 mmHg 80-90 = 385) O2 SATURATION ARTERIAL (BEAKER) 94.8 % 96.0-97.0 L (test code = 386) HCO3 ARTERIAL (BEAKER) (test code 18 mmol/L 21-29 L = 388) BASE EXCESS ARTERIAL (BEAKER) -9.8 mmol/L -2.0-3.0 L (test code = 387) PATIENT TEMPERATURE (BEAKER) 37.0 C (test code = 1818) FIO2 (BEAKER) (test code = 1819) 100.0 % CMV PCR, [id number] 13:37:00 Test Item Value Reference Range Interpretation Comments CMV VIRAL LOAD - Negative or below the NEGATIVE (BEAKER) (test linear range of the code = 2558) assay (<375 copies/mL) Cytomegalovirus (CMV) infection can [...] viral load canbe evaluated by identifying a 10-fold change, as well as assessing the CMV DNA viral load and the clinical context for each patient.The plasma CMV DNA viral load was detected using quantitative polymerase chain reaction and fluorescent monitoring of a specific hybridized probe. Genetic variation and ot her factors can affect the accuracy of nucleic acid testing. Therefore, the results should be interpreted in light of clinical data. A negative result may not exclude the presence of CMV disease.This test was developed and its performance characteristics determined by the [facility] Path ology Department, Section of Molecular Pathology. It has not been cleared or approved by the U.S. Food and Drug Administration (FDA), since FDA approval is not required for clinical use of the test. Validation was done as required by The Clinical Laboratory Improvement Amendments of 1988.BLOOD GAS, ARTERIAL 2017-12-30 13:09:00 Test Item Value Reference Range Interpretation Comments PH ARTERIAL (BEAKER) (test code = 7.17 7.35-7.45 LL 383) PCO2 ARTERIAL (BEAKER) (test code 55 mmHg 35-45 H = 384) PO2 ARTERIAL (BEAKER) (test code 123 mmHg 80-90 H = 385) O2 SATURATION ARTERIAL (BEAKER) 97.4 % 96.0-97.0 H (test code = 386) HCO3 ARTERIAL (BEAKER) (test code 20 mmol/L 21-29 L = 388) BASE EXCESS ARTERIAL (BEAKER) -8.9 mmol/L -2.0-3.0 L (test code = 387) PATIENT TEMPERATURE (BEAKER) 37.0 C (test code = 1818) FIO2 (BEAKER) (test code = 1819) 100.0 % BLOOD GAS, [id number] 12:16:00 Test Item Value Reference Range Interpretation Comments PH ARTERIAL (BEAKER) (test code = 7.18 7.35-7.45 LL 383) PCO2 ARTERIAL (BEAKER) (test code 57 mmHg 35-45 H = 384) PO2 ARTERIAL (BEAKER) (test code 62 mmHg 80-90 L = 385) O2 SATURATION ARTERIAL (BEAKER) 86.0 % 96.0-97.0 L (test code = 386) HCO3 ARTERIAL (BEAKER) (test code 21 mmol/L 21-29 = 388) BASE EXCESS ARTERIAL (BEAKER) -7.4 mmol/L -2.0-3.0 L (test code = 387) PATIENT TEMPERATURE (BEAKER) 36.6 C (test code = 1818) FIO2 (BEAKER) (test code = 1819) 100.0 % POCT-LACTIC ACID, [id number] 11:59:00 Test Item Value Reference Range Interpretation Comments POC-LACTIC ACID, 2.1 mmol/L 0.4-1.3 H TESTED AT [facility] 67[address] ARTERIAL (BEAKER) [facility] [place] (test code = 2804) [address] POCT-BLOOD GASES, [id number] 11:59:00 Test Item Value Reference Range Interpretation Comments TEMP, CELSIUS-POC 37.0 (BEAKER) (test code = 1834) FIO2-POC (BEAKER) TESTED AT [facility] 6720 (test code = 1835) [place] [address] PH, ARTERIAL-POC 7.151 7.350-7.450 LL (BEAKER) (test code = 1836) PCO2, ARTERIAL-POC 48.3 mm Hg 35.0-45.0 H (BEAKER) (test code = 1837) PO2, ARTERIAL-POC 49.0 mm Hg 80.0-90.0 L (BEAKER) (test code = 1838) SO2, ARTERIAL-POC 73.0 % 96.0-97.0 L (BEAKER) (test code = 1839) HCO3, ARTERIAL-POC 16.9 meq/L 21.0-29.0 L (BEAKER) (test code = 1840) BASE EXCESS, -12.0 meq/L -2.0-3.0 L ARTERIAL-POC ([facility]) (test code = 1841) [id number] 11:59:00 Test Item Value Reference Range Interpretation Comments POC-SODIUM (BEAKER) 136 meq/L 135-148 TESTED A [place] [address] (test code = 1542) [facility] [address] [id number] 11:59:00 Test Item Value Reference Range Interpretation Comments POC-POTASSIUM 5.7 meq/L 3.6-5.5 H TESTED AT [place] [address] ([facility]) (test code [facility] [address] = 1540) [id number] 11:59:00 Test Item Value Reference Range Interpretation Comments POC-GLUCOSE ([facility]) 123 mg/dL 70-110 H TESTED AT [place] [address] (test code = 1855) [facility] [address] POCT-CALCIUM [id number] 11:59:00 Test Item Value Reference Range Interpretation Comments POC-CALCIUM IONIZED 1.06 mmol/L 1.12-1.27 L TESTED [place] [address] ([facility]) (test code = PAERSH Garcia [facility] 1537) [address] [id number] 11:59:00 Test Item Value Reference Range Interpretation Comments POC-HEMATOCRIT 25 % 40-50 L TESTED AT [place] [address] ([facility]) (test code = PARESH Garcia [facility] [address]) [id number] 11:59:00 Test Item Value Reference Range Interpretation Comments POC-HEMOGLOBIN 8.5 g/dL 13.0-16.8 L TESTED AT [place] [address] ([facility]) (test code = PARESH Garcia [facility] 1856) [address]HXPEOZ AT [place] [address] [place] [address] TACROLIMUS [id number] 10:52:00 Test Item Value Reference Range Interpretation Comments TACROLIMUS BLOOD ([facility]) (test 8.6 ng/mL 10.0-20.0 L code = 657) RAD, CHEST, 1 VIEW, NON [id number] 04:44:00Reason for exam:->shortness of breathShould this be performed at the bedside?->YesFINAL REPORT Comparison exam: 12/28/2017 Increasing bilateral airspace consoli dation. Stable cardiomediastinal contours. Right PICC line terminates in the right atrium. Signed: Mio Fink Verified Date/Time: 12/30/2017 04:44:59 Reading Location: [address] Ortho Consult Reading Room CBC W/PLT COUNT & AUTO [id number] 03:53:00 Test Item Value Reference Range Interpretation Comments WHITE BLOOD CELL COUNT (BEAKER) 15.3 K/ L 3.5-10.5 H (test code = 775) RED BLOOD CELL COUNT (BEAKER) 2.68 M/ L 4.63-6.08 L (test code = 761) HEMOGLOBIN (BEAKER) (test code = 8.3 GM/DL 13.7-17.5 L 410) HEMATOCRIT (BEAKER) (test code = 24.9 % 40.1-51.0 L 411) MEAN CORPUSCULAR VOLUME (BEAKER) 92.9 fL 79.0-92.2 H (test code = 753) MEAN CORPUSCULAR HEMOGLOBIN 31.0 pg 25.7-32.2 (BEAKER) (test code = 751) MEAN CORPUSCULAR HEMOGLOBIN CONC 33.3 GM/DL 32.3-36.5 (BEAKER) (test code = 752) RED CELL DISTRIBUTION WIDTH 15.1 % 11.6-14.4 H (BEAKER) (test code = 412) PLATELET COUNT (BEAKER) (test code 32 K/CU MM 150-450 L = 756) MEAN PLATELET VOLUME (BEAKER) 12.3 fL 9.4-12.4 (test code = 754) NUCLEATED RED BLOOD CELLS (BEAKER) 0 /100 WBC 0-0 (test code = 413) NEUTROPHILS RELATIVE PERCENT 94 % (BEAKER) (test code = 429) LYMPHOCYTES RELATIVE PERCENT 1 % (BEAKER) (test code = 430) MONOCYTES RELATIVE PERCENT 4 % (BEAKER) (test code = 431) EOSINOPHILS RELATIVE PERCENT 0 % (BEAKER) (test code = 432) BASOPHILS RELATIVE PERCENT 0 % (BEAKER) (test code = 437) NEUTROPHILS ABSOLUTE COUNT 14.45 K/ L 1.78-5.38 H (BEAKER) (test code = 670) LYMPHOCYTES ABSOLUTE COUNT 0.15 K/ L 1.32-3.57 L (BEAKER) (test code = 414) MONOCYTES ABSOLUTE COUNT (BEAKER) 0.55 K/ L 0.30-0.82 (test code = 415) EOSINOPHILS ABSOLUTE COUNT 0.00 K/ L 0.04-0.54 L (BEAKER) (test code = 416) BASOPHILS ABSOLUTE COUNT (BEAKER) 0.02 K/ L 0.01-0.08 (test code = 417) IMMATURE GRANULOCYTES-RELATIVE 1 % 0-1 PERCENT (BEAKER) (test code = 2801) BASIC METABOLIC [id number] 03:35:00 Test Item Value Reference Range Interpretation Comments SODIUM (BEAKER) 138 meq/L 136-145 (test code = 381) POTASSIUM (BEAKER) 4.8 meq/L 3.5-5.1 (test code = 379) CHLORIDE (BEAKER) 100 meq/L 98-107 (test code = 382) CO2 (BEAKER) (test 16 meq/L 22-29 L code = 355) BLOOD UREA NITROGEN 100 mg/dL 7-21 H (BEAKER) (test code = 354) CREATININE (BEAKER) 2.97 mg/dL 0.57-1.25 H (test code = 358) GLUCOSE RANDOM 105 mg/dL 70-105 (BEAKER) (test code = 652) CALCIUM (BEAKER) 8.4 mg/dL 8.4-10.2 (test code = 697) EGFR (BEAKER) (test 22 mL/min/1.73 ESTIMA ROBERTA GFR IS code = 1092) sq m NOT ACCURATE CREATININE CLEARANCE IN PREDICTING GLOMERULAR FILTRATION RATE . ESTIMATED GFR I S NOT APPLICABLE FOR DIALYSIS PATIEN TS. [id number] 03:34:00 Test Item Value Reference Range Interpretation Comments MAGNESIUM (BEAKER) (test code = 2.5 mg/dL 1.6-2.6 627) HEPATIC FUNCTION [id number] 03:34:00 Test Item Value Reference Range Interpretation Comments TOTAL PROTEIN (BEAKER) (test code = 5.0 gm/dL 6.0-8.3 L 770) ALBUMIN (BEAKER) (test code = 1145) 3.2 g/dL 3.5-5.0 L BILIRUBIN TOTAL (BEAKER) (test code 2.4 mg/dL 0.2-1.2 H = 377) BILIRUBIN DIRECT (BEAKER) (test 1.6 mg/dL 0.1-0.5 H code = 706) ALKALINE PHOSPHATASE (BEAKER) (test 91 U/L 40-150 code = 346) AST (SGOT) (BEAKER) (test code = 78 U/L 5-34 H 353) ALT (SGPT) (BEAKER) (test code = 86 U/L 6-55 H 347) CALCIUM, [id number] 03:24:00 Test Item Value Reference Range Interpretation Comments CALCIUM IONIZED (BEAKER) (test 1.04 mmol/L 1.12-1.27 L code = 698) PH, BLOOD (BEAKER) (test code = 7.29 1810) BLOOD GAS, [id number] 03:24:00 Test Item Value Reference Range Interpretation Comments PH ARTERIAL (BEAKER) (test code = 7.30 7.35-7.45 L 383) PCO2 ARTERIAL (BEAKER) (test code 38 mmHg 35-45 = 384) PO2 ARTERIAL (BEAKER) (test code 170 mmHg 80-90 H = 385) O2 SATURATION ARTERIAL (BEAKER) 99.0 % 96.0-97.0 H (test code = 386) HCO3 ARTERIAL (BEAKER) (test code 18 mmol/L 21-29 L = 388) BASE EXCESS ARTERIAL (BEAKER) -7.8 mmol/L -2.0-3.0 L (test code = 387) PATIENT TEMPERATURE (BEAKER) 36.5 C (test code = 1818) FIO2 (BEAKER) (test code = 1819) 85.0 % BLOOD GAS, [id number] 21:12:00 Test Item Value Reference Range Interpretation Comments PH ARTERIAL (BEAKER) (test code = 7.37 7.35-7.45 383) PCO2 ARTERIAL (BEAKER) (test code 32 mmHg 35-45 L = 384) PO2 ARTERIAL (BEAKER) (test code 230 mmHg 80-90 H = 385) O2 SATURATION ARTERIAL (BEAKER) 99.5 % 96.0-97.0 H (test code = 386) HCO3 ARTERIAL (BEAKER) (test code 18 mmol/L 21-29 L = 388) BASE EXCESS ARTERIAL (BEAKER) -6.5 mmol/L -2.0-3.0 L (test code = 387) PATIENT TEMPERATURE (BEAKER) 37.0 C (test code = 1818) FIO2 (BEAKER) (test code = 1819) 85.0 % POCT-GLUCOSE [id number] 21:11:00 Test Item Value Reference Range Interpretation Comments POC-GLUCOSE METER 117 mg/dL 70-110 H TESTED AT [facility] 6720 (BEAKER) (test code = [place] 15[address]) [address] LACTIC ACID, ARTERIAL, WHOLE [id number] 20:27:00 Test Item Value Reference Range Interpretation Comments LACTATE BLOOD ARTERIAL (2) 1.0 mmol/L 0.5-2.2 (BEAKER) (test code = 2874) Effective 11/02/2015: Units/Reference Range ChangeNew: 0.5-2.2 mmol/L Previous: 5-20 mg/dLBLOOD GAS, [id number] 20:09:00 Test Item Value Reference Range Interpretation Comments PH ARTERIAL (BEAKER) (test code = 7.34 7.35-7.45 L 383) PCO2 ARTERIAL (BEAKER) (test code 30 mmHg 35-45 L = 384) PO2 ARTERIAL (BEAKER) (test code 93 mmHg 80-90 H = 385) O2 SATURATION ARTERIAL (BEAKER) 96.8 % 96.0-97.0 (test code = 386) HCO3 ARTERIAL (BEAKER) (test code 16 mmol/L 21-29 L = 388) BASE EXCESS ARTERIAL (BEAKER) -9.1 mmol/L -2.0-3.0 L (test code = 387) PATIENT TEMPERATURE (BEAKER) 37.0 C (test code = 1818) COMPREHENSIVE METABOLIC [id number] 18:59:00 Test Item Value Reference Range Interpretation Comments TOTAL PROTEIN 4.8 gm/dL 6.0-8.3 L (BEAKER) (test code = 770) ALBUMIN (BEAKER) 3.1 g/dL 3.5-5.0 L (test code = 1145) ALKALINE PHOSPHATASE 74 U/L 40-150 (BEAKER) (test code = 346) BILIRUBIN TOTAL 2.3 mg/dL 0.2-1.2 H (BEAKER) (test code = 377) SODIUM (BEAKER) (test 137 meq/L 136-145 code = 381) POTASSIUM (BEAKER) 4.5 meq/L 3.5-5.1 (test code = 379) CHLORIDE (BEAKER) 101 meq/L 98-107 (test code = 382) CO2 (BEAKER) (test 14 meq/L 22-29 L code = 355) BLOOD UREA NITROGEN 90 mg/dL 7-21 H (BEAKER) (test code = 354) CREATININE (BEAKER) 2.78 mg/dL 0.57-1.25 H (test code = 358) GLUCOSE RANDOM 98 mg/dL 70-105 (BEAKER) (test code = 652) CALCIUM (BEAKER) 8.3 mg/dL 8.4-10.2 L (test code = 697) AST (SGOT) (BEAKER) 72 U/L 5-34 H (test code = 353) ALT (SGPT) (BEAKER) 88 U/L 6-55 H (test code = 347) EGFR (BEAKER) (test 23 mL/min/1.73 ESTIMA ROBERTA GFR IS code = 1092) sq m NOT ACCURATE CREATININE CLEARANCE IN PREDICTING GLOMERULAR FILTRATION RATE . ESTIMATED GFR I S NOT APPLICABLE FOR DIALYSIS PATIEN TS. [id number] 18:35:00 Test Item Value Reference Range Interpretation Comments MAGNESIUM (BEAKER) (test code = 2.3 mg/dL 1.6-2.6 627) BLOOD GAS, [id number] 18:00:00 Test Item Value Reference Range Interpretation Comments PH ARTERIAL (BEAKER) (test code = 7.35 7.35-7.45 383) PCO2 ARTERIAL (BEAKER) (test code 29 mmHg 35-45 L = 384) PO2 ARTERIAL (BEAKER) (test code 63 mmHg 80-90 L = 385) O2 SATURATION ARTERIAL (BEAKER) 91.4 % 96.0-97.0 L (test code = 386) HCO3 ARTERIAL (BEAKER) (test code 16 mmol/L 21-29 L = 388) BASE EXCESS ARTERIAL (BEAKER) -9.1 mmol/L -2.0-3.0 L (test code = 387) PATIENT TEMPERATURE (BEAKER) 37.0 C (test code = 1818) OXYGEN SATURATION, [id number] 18:00:00 Test Item Value Reference Range Interpretation Comments O2 SATURATION (MEASURED) (BEAKER) 89.9 % (test code = 1455) CALCIUM, [id number] 18:00:00 Test Item Value Reference Range Interpretation Comments CALCIUM IONIZED (BEAKER) (test 1.03 mmol/L 1.12-1.27 L code = 698) PH, BLOOD (BEAKER) (test code = 7.35 1810) CBC W/PLT COUNT & AUTO [id number] 15:15:00 Test Item Value Reference Range Interpretation Comments WHITE BLOOD CELL COUNT (BEAKER) 9.6 K/ L 3.5-10.5 (test code = 775) RED BLOOD CELL COUNT (BEAKER) 2.60 M/ L 4.63-6.08 L (test code = 761) HEMOGLOBIN (BEAKER) (test code = 8.2 GM/DL 13.7-17.5 L 410) HEMATOCRIT (BEAKER) (test code = 24.0 % 40.1-51.0 L 411) MEAN CORPUSCULAR VOLUME (BEAKER) 92.3 fL 79.0-92.2 H (test code = 753) MEAN CORPUSCULAR HEMOGLOBIN 31.5 pg 25.7-32.2 (BEAKER) (test code = 751) MEAN CORPUSCULAR HEMOGLOBIN CONC 34.2 GM/DL 32.3-36.5 (BEAKER) (test code = 752) RED CELL DISTRIBUTION WIDTH 15.4 % 11.6-14.4 H (BEAKER) (test code = 412) PLATELET COUNT (BEAKER) (test code 30 K/CU MM 150-450 L = 756) MEAN PLATELET VOLUME (BEAKER) 12.2 fL 9.4-12.4 (test code = 754) NUCLEATED RED BLOOD CELLS (BEAKER) 0 /100 WBC 0-0 (test code = 413) NEUTROPHILS RELATIVE PERCENT 95 % (BEAKER) (test code = 429) LYMPHOCYTES RELATIVE PERCENT 1 % (BEAKER) (test code = 430) MONOCYTES RELATIVE PERCENT 3 % (BEAKER) (test code = 431) EOSINOPHILS RELATIVE PERCENT 0 % (BEAKER) (test code = 432) BASOPHILS RELATIVE PERCENT 0 % (BEAKER) (test code = 437) NEUTROPHILS ABSOLUTE COUNT 9.14 K/ L 1.78-5.38 H (BEAKER) (test code = 670) LYMPHOCYTES ABSOLUTE COUNT 0.10 K/ L 1.32-3.57 L (BEAKER) (test code = 414) MONOCYTES ABSOLUTE COUNT (BEAKER) 0.26 K/ L 0.30-0.82 L (test code = 415) EOSINOPHILS ABSOLUTE COUNT 0.00 K/ L 0.04-0.54 L (BEAKER) (test code = 416) BASOPHILS ABSOLUTE COUNT (BEAKER) 0.02 K/ L 0.01-0.08 (test code = 417) IMMATURE GRANULOCYTES-RELATIVE 1 % 0-1 PERCENT (BEAKER) (test code = 2801) POCT-GLUCOSE [id number] 12:54:00 Test Item Value Reference Range Interpretation Comments POC-GLUCOSE METER 111 mg/dL 70-110 H TESTED AT [facility] 67[address] (BEAKER) (test code = [place] 1538) [address] SPUTUM CULTURE + GRAM [id number] 10:56:00 Test Item Value Reference Range Interpretation Comments CULTURE (BEAKER) 3+ Normal respiratory (test code = 1095) tre present GRAM STAIN RESULT 3+ White blood cells (BEAKER) (test code = seen 1123) GRAM STAIN RESULT 0-5 epithelial cells (BEAKER) (test code = 19450) GRAM STAIN RESULT <1+ gram negative rods (BEAKER) (test code = 54287) GRAM STAIN RESULT <1+ gram positive rods (BEAKER) (test code = 447784) GRAM STAIN RESULT <1+ gram positive cocci (BEAKER) (test code = in clusters [id number]) TACROLIMUS [id number] 10:34:00 Test Item Value Reference Range Interpretation Comments TACROLIMUS BLOOD (BEAKER) (test 9.2 ng/mL 10.0-20.0 L code = 657) BLOOD GAS, [id number] 08:45:00 Test Item Value Reference Range Interpretation Comments PH ARTERIAL (BEAKER) (test code = 7.42 7.35-7.45 383) PCO2 ARTERIAL (BEAKER) (test code 24 mmHg 35-45 L = 384) PO2 ARTERIAL (BEAKER) (test code 85 mmHg 80-90 = 385) O2 SATURATION ARTERIAL (BEAKER) 96.9 % 96.0-97.0 (test code = 386) HCO3 ARTERIAL (BEAKER) (test code 16 mmol/L 21-29 L = 388) BASE EXCESS ARTERIAL (BEAKER) -7.8 mmol/L -2.0-3.0 L (test code = 387) PATIENT TEMPERATURE (BEAKER) 36.8 C (test code = 1818) FIO2 (BEAKER) (test code = 1819) 40.0 % CALCIUM, [id number] 07:52:00 Test Item Value Reference Range Interpretation Comments CALCIUM IONIZED (BEAKER) (test 1.01 mmol/L 1.12-1.27 L code = 698) PH, BLOOD (BEAKER) (test code = 7.41 1810) Check serum Ionized Calcium level after 4 hours after IV Calcium replacement. BASIC METABOLIC [id number] 06:54:00 Test Item Value Reference Range Interpretation Comments SODIUM (BEAKER) 141 meq/L 136-145 (test code = 381) POTASSIUM (BEAKER) 4.3 meq/L 3.5-5.1 (test code = 379) CHLORIDE (BEAKER) 105 meq/L 98-107 (test code = 382) CO2 (BEAKER) (test 15 meq/L 22-29 L code = 355) BLOOD UREA NITROGEN 77 mg/dL 7-21 H (BEAKER) (test code = 354) CREATININE (BEAKER) 2.66 mg/dL 0.57-1.25 H (test code = 358) GLUCOSE RANDOM 75 mg/dL 70-105 (BEAKER) (test code = 652) CALCIUM (BEAKER) 8.3 mg/dL 8.4-10.2 L (test code = 697) EGFR (BEAKER) (test 25 mL/min/1.73 ESTIMA ROBERTA GFR IS code = 1092) sq m NOT ACCURATE CREATININE CLEARANCE IN PREDICTING GLOMERULAR FILTRATION RATE . ESTIMATED GFR I S NOT APPLICABLE FOR DIALYSIS PATIEN TS. HEPATIC FUNCTION [id number] 06:14:00 Test Item Value Reference Range Interpretation Comments TOTAL PROTEIN (BEAKER) (test code = 4.8 gm/dL 6.0-8.3 L 770) ALBUMIN (BEAKER) (test code = 1145) 3.2 g/dL 3.5-5.0 L BILIRUBIN TOTAL (BEAKER) (test code 2.3 mg/dL 0.2-1.2 H = 377) BILIRUBIN DIRECT (BEAKER) (test 1.5 mg/dL 0.1-0.5 H code = 706) ALKALINE PHOSPHATASE (BEAKER) (test 63 U/L 40-150 code = 346) AST (SGOT) (BEAKER) (test code = 72 U/L 5-34 H 353) ALT (SGPT) (BEAKER) (test code = 96 U/L 6-55 H 347) VANCOMYCIN LEVEL, [id number] 06:12:00 Test Item Value Reference Range Interpretation Comments VANCOMYCIN TROUGH (BEAKER) (test 17.7 ug/mL 10.0-20.0 code = 522) HEPATITIS PANEL, [id number] 01:10:00 Test Item Value Reference Range Interpretation Comments HEPATITIS A IGM ANTIBODY (BEAKER) Nonreactive Nonreactive (test code = 498) HEPATITIS B CORE IGM ANTIBODY Nonreactive Nonreactive (BEAKER) (test code = 645) HEPATITIS C ANTIBODY (BEAKER) Nonreactive Nonreactive (test code = 367) HEPATITIS B SURFACE ANTIGEN (2) Nonreactive Nonreactive (BEAKER) (test code = 2585) BLOOD GAS, [id number] 23:35:00 Test Item Value Reference Range Interpretation Comments PH ARTERIAL (BEAKER) (test code = 7.44 7.35-7.45 383) PCO2 ARTERIAL (BEAKER) (test code 27 mmHg 35-45 L = 384) PO2 ARTERIAL (BEAKER) (test code 101 mmHg 80-90 H = 385) O2 SATURATION ARTERIAL (BEAKER) 97.9 % 96.0-97.0 H (test code = 386) HCO3 ARTERIAL (BEAKER) (test code 18 mmol/L 21-29 L = 388) BASE EXCESS ARTERIAL (BEAKER) -4.9 mmol/L -2.0-3.0 L (test code = 387) PATIENT TEMPERATURE (BEAKER) 37.0 C (test code = 1818) FIO2 (BEAKER) (test code = 1819) 40.0 % 30 minutes after sodium bicarbonate administration.CALCIUM, [id number] 20:10:00 Test Item Value Reference Range Interpretation Comments CALCIUM IONIZED (BEAKER) (test 1.02 mmol/L 1.12-1.27 L code = 698) PH, BLOOD (BEAKER) (test code = 7.38 1810) BLOOD GAS, [id number] 20:09:00 Test Item Value Reference Range Interpretation Comments PH ARTERIAL (BEAKER) (test code = 7.38 7.35-7.45 383) PCO2 ARTERIAL (BEAKER) (test code 28 mmHg 35-45 L = 384) PO2 ARTERIAL (BEAKER) (test code 168 mmHg 80-90 H = 385) O2 SATURATION ARTERIAL (BEAKER) 99.1 % 96.0-97.0 H (test code = 386) HCO3 ARTERIAL (BEAKER) (test code 16 mmol/L 21-29 L = 388) BASE EXCESS ARTERIAL (BEAKER) -8.0 mmol/L -2.0-3.0 L (test code = 387) PATIENT TEMPERATURE (BEAKER) 37.0 C (test code = 1818) FIO2 (BEAKER) (test code = 1819) 40.0 % [id number] 17:27:00 Test Item Value Reference Range Interpretation Comments HAPTOGLOBIN (BEAKER) (test code = 86 mg/dL 14-258 366) CREATININE, RANDOM [id number] 16:05:00 Test Item Value Reference Range Interpretation Comments CREATININE URINE (BEAKER) (test 53.1 mg/dL code = 375) Reference Range: No NormalsPOTASSIUM, RANDOM [id number] 16:05:00 Test Item Value Reference Range Interpretation Comments POTASSIUM URINE (BEAKER) (test 48.4 meq/L code = 195) Reference Range: No NormalsPROTEIN, RANDOM [id number] 16:05:00 Test Item Value Reference Range Interpretation Comments PROTEIN, URINE (BEAKER) (test code = 9 mg/dL 0-14 1569) SODIUM, RANDOM [id number] 16:05:00 Test Item Value Reference Range Interpretation Comments SODIUM URINE (BEAKER) (test code = 64 meq/L 243) Reference Range: No NormalsURINALYSIS W/ [id number] 16:02:00 Test Item Value Reference Range Interpretation Comments COLOR (BEAKER) (test code = Yellow 470) CLARITY (BEAKER) (test code = Clear 469) SPECIFIC GRAVITY UA (BEAKER) 1.011 1.001-1.035 (test code = 468) PH UA (BEAKER) (test code = 5.0 5.0-8.0 467) PROTEIN UA (BEAKER) (test code Negative Negative = 464) GLUCOSE UA (BEAKER) (test code Negative Negative = 365) KETONES UA (BEAKER) (test code Trace Negative A = 371) BILIRUBIN UA (BEAKER) (test Negative Negative code = 462) BLOOD UA (BEAKER) (test code = Negative Negative 461) NITRITE UA (BEAKER) (test code Negative Negative = 465) LEUKOCYTE ESTERASE UA (BEAKER) Negative Negative (test code = 466) UROBILINOGEN UA (BEAKER) (test 0.2 mg/dL 0.2-1.0 code = 463) RBC UA (BEAKER) (test code = 0 /HPF 519) WBC UA (BEAKER) (test code = < /HPF 520) MUCUS (BEAKER) (test code = Rare 1574) SOURCE(BEAKER) (test code = Urine, Voided 5565) CREATINE KINASE (CK)2017-12-28 15:27:00 Test Item Value Reference Range Interpretation Comments CREATINE KINASE TOTAL (BEAKER) (test 133 U/L 29-200 code = 380) [id number] 15:26:00 Test Item Value Reference Range Interpretation Comments POTASSIUM (BEAKER) (test code = 4.6 meq/L 3.5-5.1 379) [id number] 15:26:00 Test Item Value Reference Range Interpretation Comments MAGNESIUM (BEAKER) (test code = 2.2 mg/dL 1.6-2.6 627) [id number] 15:26:00 Test Item Value Reference Range Interpretation Comments PHOSPHORUS (BEAKER) (test code = 4.1 mg/dL 2.3-4.7 604) CALCIUM, [id number] 14:59:00 Test Item Value Reference Range Interpretation Comments CALCIUM IONIZED (BEAKER) (test 0.98 mmol/L 1.12-1.27 L code = 698) PH, BLOOD (BEAKER) (test code = 7.42 1810) [id number] 12:31:00 Test Item Value Reference Range Interpretation Comments PROCALCITONIN (BEAKER) (test code = > ng/mL <0.05 3036) SEPSIS RISK (ng/mL)Low: 0.05-0.50Intermediate: 0.51-2.00High: >=2.01IMMUNOGLOBULIN G (IGG)2017-12-28 12:15:00 Test Item Value Reference Range Interpretation Comments IMMUNOGLOBULIN G (IGG) (BEAKER) (test < mg/dL 540-1822 L code = 427) CBC W/PLT COUNT & AUTO [id number] 11:41:00 Test Item Value Reference Range Interpretation Comments WHITE BLOOD CELL COUNT (BEAKER) 10.6 K/ L 3.5-10.5 H (test code = 775) RED BLOOD CELL COUNT (BEAKER) 2.78 M/ L 4.63-6.08 L (test code = 761) HEMOGLOBIN (BEAKER) (test code = 8.4 GM/DL 13.7-17.5 L 410) HEMATOCRIT (BEAKER) (test code = 25.5 % 40.1-51.0 L 411) MEAN CORPUSCULAR VOLUME (BEAKER) 91.7 fL 79.0-92.2 (test code = 753) MEAN CORPUSCULAR HEMOGLOBIN 30.2 pg 25.7-32.2 (BEAKER) (test code = 751) MEAN CORPUSCULAR HEMOGLOBIN CONC 32.9 GM/DL 32.3-36.5 (BEAKER) (test code = 752) RED CELL DISTRIBUTION WIDTH 15.3 % 11.6-14.4 H (BEAKER) (test code = 412) PLATELET COUNT (BEAKER) (test code 35 K/CU MM 150-450 L = 756) MEAN PLATELET VOLUME (BEAKER) 12.3 fL 9.4-12.4 (test code = 754) NUCLEATED RED BLOOD CELLS (BEAKER) 0 /100 WBC 0-0 (test code = 413) (CELLAVISION MANUAL DIFF)2017-12-28 11:41:00 Test Item Value Reference Range Interpretation Comments NEUTROPHILS - REL 71 % (CELLAVISION)(BEAKER) (test code = 2816) MONOCYTES - REL 4 % (CELLAVISION)(BEAKER) (test code = 2818) METAMYELOCYTES - REL 2 % 0-0 H (CELLAVISION)(BEAKER) (test code = 2821) BANDS - REL (CELLAVISION)(BEAKER) 22 % 0-10 H (test code = 2826) NEUTROPHILS - ABS 7.53 K/ul 1.78-5.38 H (CELLAVISION)(BEAKER) (test code = 2830) MONOCYTES - ABS 0.42 K/uL 0.30-0.82 (CELLAVISION)(BEAKER) (test code = 2832) METAMYELOCYTES - ABS 0.21 K/uL 0.00-0.00 H (CELLAVISION)(BEAKER) (test code = 2836) BANDS - ABS (CELLAVISION)(BEAKER) 2.33 K/uL 0.00-0.80 H (test code = 2840) TOTAL COUNTED (BEAKER) (test code 100 = 1351) WBC MORPHOLOGY (BEAKER) (test Normal code = 487) PLT MORPHOLOGY (BEAKER) (test Normal code = 486) HYPOCHROMIA (BEAKER) (test code = 1+ few 963) ANISOCYTOSIS (BEAKER) (test code 2+ moderate = 961) MICROCYTES (BEAKER) (test code = 1+ few 965) MACROCYTES (BEAKER) (test code = 2+ moderate 964) POIKILOCYTES (BEAKER) (test code 2+ moderate = 966) OVALOCYTES (BEAKER) (test code = 1+ few 477) TEAR DROP CELLS (BEAKER) (test 1+ few code = 481) ACANTHOCYTES (BEAKER) (test code 1+ few = 471) MICKEY CELLS (BEAKER) (test code = 2+ moderate 474) ARTIFACT (CELLAVISION)(BEAKER) Present (test code = 3432) PLATELET CONCENTRATION Decreased (CELLAVISION)(BEAKER) (test code = 3438) Received comment: User comments: Slide comments:RAD, CHEST, 1 VIEW, NON DEPT 2017-12-28 10:56:00Reason for exam:->dyspneaShould this be performed at the bedside?->YesFINAL REPORT Chest, one view. HISTORY: Dyspnea COMPARISON: 12/27/2017 IMPRESSION: No significant change. Right-sided PICC unchanged in position. Unchanged patchy bilateral airspace disease. Trace bilateral pleural effusions, right greater than left. Cardiomediastinal silhouette is persistently enlarged. Median sternotomy wires and post surgical changes in the mediastinum. Signed: Torey Hartley MDReport Verified Date/Time: 12/28/2017 10:56:56 Reading Location: [facility] [id number] Ortho Consult Reading Room [facility] [id number] 10:02:00 Test Item Value Reference Range Interpretation Comments TOTAL PROTEIN (BEAKER) (test code = 4.7 gm/dL 6.0-8.3 L 770) ALBUMIN (BEAKER) (test code = 1145) 3.3 g/dL 3.5-5.0 L BILIRUBIN TOTAL (BEAKER) (test code 1.8 mg/dL 0.2-1.2 H = 377) BILIRUBIN DIRECT (BEAKER) (test 1.3 mg/dL 0.1-0.5 H code = 706) ALKALINE PHOSPHATASE (BEAKER) (test 68 U/L 40-150 code = 346) AST (SGOT) (BEAKER) (test code = 90 U/L 5-34 H 353) ALT (SGPT) (BEAKER) (test code = 107 U/L 6-55 H 347) LACTATE DEHYDROGENASE (LDH)2017-12-28 10:01:00 Test Item Value Reference Range Interpretation Comments LACTATE DEHYDROGENASE (BEAKER) (test 235 U/L 125-220 H code = 635) HEPATIC FUNCTION [id number] 09:38:00 Test Item Value Reference Range Interpretation Comments TOTAL PROTEIN (BEAKER) (test code = 4.5 gm/dL 6.0-8.3 L 770) ALBUMIN (BEAKER) (test code = 1145) 3.1 g/dL 3.5-5.0 L BILIRUBIN TOTAL (BEAKER) (test code 1.4 mg/dL 0.2-1.2 H = 377) BILIRUBIN DIRECT (BEAKER) (test 1.0 mg/dL 0.1-0.5 H code = 706) ALKALINE PHOSPHATASE (BEAKER) (test 63 U/L 40-150 code = 346) AST (SGOT) (BEAKER) (test code = 97 U/L 5-34 H 353) ALT (SGPT) (BEAKER) (test code = 109 U/L 6-55 H 347) TACROLIMUS [id number] 08:50:00 Test Item Value Reference Range Interpretation Comments TACROLIMUS BLOOD (BEAKER) (test 11.2 ng/mL 10.0-20.0 code = 657) [id number] 08:44:00 Test Item Value Reference Range Interpretation Comments CORTISOL, TOTAL (BEAKER) (test 16.7 ug/dL 3.7-19.4 code = 2755) BASIC METABOLIC [id number] 07:08:00 Test Item Value Reference Range Interpretation Comments SODIUM (BEAKER) 138 meq/L 136-145 (test code = 381) POTASSIUM (BEAKER) 4.9 meq/L 3.5-5.1 (test code = 379) CHLORIDE (BEAKER) 107 meq/L 98-107 (test code = 382) CO2 (BEAKER) (test 15 meq/L 22-29 L code = 355) BLOOD UREA NITROGEN 56 mg/dL 7-21 H (BEAKER) (test code = 354) CREATININE (BEAKER) 2.66 mg/dL 0.57-1.25 H (test code = 358) GLUCOSE RANDOM 113 mg/dL 70-105 H (BEAKER) (test code = 652) CALCIUM (BEAKER) 7.5 mg/dL 8.4-10.2 L (test code = 697) EGFR (BEAKER) (test 25 mL/min/1.73 ESTIMA ROBERTA GFR IS code = 1092) sq m NOT ACCURATE CREATININE CLEARANCE IN PREDICTING GLOMERULAR FILTRATION RATE . ESTIMATED GFR I S NOT APPLICABLE FOR DIALYSIS PATIEN TS. VANCOMYCIN LEVEL, [id number] 06:47:00 Test Item Value Reference Range Interpretation Comments VANCOMYCIN RANDOM (BEAKER) (test 13.8 ug/mL code = 523) Reference Range: No [id number] 06:23:00 Test Item Value Reference Range Interpretation Comments MAGNESIUM (BEAKER) (test code = 1.7 mg/dL 1.6-2.6 627) BLOOD GAS, [id number] 06:07:00 Test Item Value Reference Range Interpretation Comments PH ARTERIAL (BEAKER) (test code = 7.39 7.35-7.45 383) PCO2 ARTERIAL (BEAKER) (test code 30 mmHg 35-45 L = 384) PO2 ARTERIAL (BEAKER) (test code 109 mmHg 80-90 H = 385) O2 SATURATION ARTERIAL (BEAKER) 98.1 % 96.0-97.0 H (test code = 386) HCO3 ARTERIAL (BEAKER) (test code 18 mmol/L 21-29 L = 388) BASE EXCESS ARTERIAL (BEAKER) -6.3 mmol/L -2.0-3.0 L (test code = 387) PATIENT TEMPERATURE (BEAKER) 36.5 C (test code = 1818) FIO2 (BEAKER) (test code = 1819) 100.0 % LACTIC ACID, ARTERIAL, WHOLE [id number] 05:20:00 Test Item Value Reference Range Interpretation Comments LACTATE BLOOD ARTERIAL (2) 3.1 mmol/L 0.5-2.2 H (BEAKER) (test code = 2874) Effective 11/02/2015: Units/Reference Range ChangeNew: 0.5-2.2 mmol/L Previous: 5-20 mg/dLLACTIC ACID, VENOUS, WHOLE [id number] 23:10:00 Test Item Value Reference Range Interpretation Comments LACTATE BLOOD VENOUS (2) (BEAKER) 4.1 mmol/L 0.5-2.2 H (test code = 2872) Effective 11/02/2015: Units/Reference Range ChangeNew: 0.5-2.2 mmol/L Previous: 5-20 mg/[id number] 23:09:00 Test Item Value Reference Range Interpretation Comments POTASSIUM (BEAKER) (test code = 5.0 meq/L 3.5-5.1 379) BLOOD GAS, [id number] 22:54:00 Test Item Value Reference Range Interpretation Comments PH VENOUS (BEAKER) (test code = 7.34 7.32-7.42 701) PCO2 VENOUS (BEAKER) (test code = 32 mmHg 41-51 L 755) PO2 VENOUS (BEAKER) (test code = 36 mmHg 25-40 702) O2 SATURATION VENOUS (BEAKER) 66.4 % 40.0-70.0 (test code = 703) HCO3 VENOUS (BEAKER) (test code = 17 mmol/L 21-29 L 705) BASE EXCESS VENOUS (BEAKER) (test -8.0 mmol/L -2.0-3.0 L code = 704) PATIENT TEMPERATURE (BEAKER) 37.0 C (test code = 1818) U/S, ABDOMINAL, [id number] 22:00:00Abdomen limited area? Add comment if clarification [...] pancreas.Normal aorta.Normal right kidney. Small volume ascites. Bilateral pleural effusions. The measurements are as follows: Liver [...] of acute cholecystitis. 2. Small volume ascites. Signed: Mio Fink Verified Date/Time: 12/27/2017 22:00:32 Reading Location: [address] Reading Room RAD, CHEST, 1 VIEW, NON [id number] 19:03:00Reason for exam:->eval pulmonary congestion/dyspneaShould this be performed at the bedside?->Yes FINAL REPORT RAD, CHEST, 1 VIEW, NON DEPT INDICATION: eval pulmonary congestion/dyspnea COMPARISON: Three hours prior FINDINGS: Portable frontal view of the chest. IMPRESSION:Support Lines: Stable right PICC. Lungs and pleura: No significant interval change in previously noted interstitial congestion. Bilateral pleural effusions again noted, greater on the right. No pneumothorax.Heart and mediastinum: Stable contours. Stable surgical changes.Additional findings: None. Signed: JR Rizzo Robert MDReport Verified Date/Time: 12/27/2017 19:03:45 Reading Location: [address] Reading Room BLOOD GAS, [id number] 18:29:00 Test Item Value Reference Range Interpretation Comments PH ARTERIAL (BEAKER) (test code = 7.41 7.35-7.45 383) PCO2 ARTERIAL (BEAKER) (test code 24 mmHg 35-45 L = 384) PO2 ARTERIAL (BEAKER) (test code 69 mmHg 80-90 L = 385) O2 SATURATION ARTERIAL (BEAKER) 94.8 % 96.0-97.0 L (test code = 386) HCO3 ARTERIAL (BEAKER) (test code 15 mmol/L 21-29 L = 388) BASE EXCESS ARTERIAL (BEAKER) -8.2 mmol/L -2.0-3.0 L (test code = 387) PATIENT TEMPERATURE (BEAKER) 36.4 C (test code = 1818) FIO2 (BEAKER) (test code = 1819) 21.0 % RAD, CHEST, 1 VIEW, NON [id number] 15:36:00Reason for exam:->RUE picc line placement Should [...] by technique with sternotomy wires.. Signed: Jad Isaac MDReport Verified Date/Time: 12/27/2017 15:36:05 Reading Location: [facility] C013W [facility] Reading Room BASIC METABOLIC [id number] 14:47:00 Test Item Value Reference Range Interpretation Comments SODIUM (BEAKER) 138 meq/L 136-145 (test code = 381) POTASSIUM (BEAKER) 5.2 meq/L 3.5-5.1 H (test code = 379) CHLORIDE (BEAKER) 111 meq/L 98-107 H (test code = 382) CO2 (BEAKER) (test 15 meq/L 22-29 L code = 355) BLOOD UREA NITROGEN 45 mg/dL 7-21 H (BEAKER) (test code = 354) CREATININE (BEAKER) 2.34 mg/dL 0.57-1.25 H (test code = 358) GLUCOSE RANDOM 88 mg/dL 70-105 (BEAKER) (test code = 652) CALCIUM (BEAKER) 7.9 mg/dL 8.4-10.2 L (test code = 697) EGFR (BEAKER) (test 29 mL/min/1.73 ESTIMA ROBERTA GFR IS code = 1092) sq m NOT ACCURATE CREATININE CLEARANCE IN PREDICTING GLOMERULAR FILTRATION RATE . ESTIMATED GFR I S NOT APPLICABLE FOR DIALYSIS PATIEN TS. LACTIC ACID, ARTERIAL, WHOLE [id number] 14:33:00 Test Item Value Reference Range Interpretation Comments LACTATE BLOOD ARTERIAL (2) 4.2 mmol/L 0.5-2.2 H (BEAKER) (test code = 2874) Effective 11/02/2015: Units/Reference Range ChangeNew: 0.5-2.2 mmol/L Previous: 5-20 mg/dLBLOOD GAS, [id number] 14:11:00 Test Item Value Reference Range Interpretation Comments PH ARTERIAL (BEAKER) (test code = 7.38 7.35-7.45 383) PCO2 ARTERIAL (BEAKER) (test code 26 mmHg 35-45 L = 384) PO2 ARTERIAL (BEAKER) (test code 174 mmHg 80-90 H = 385) O2 SATURATION ARTERIAL (BEAKER) 99.2 % 96.0-97.0 H (test code = 386) HCO3 ARTERIAL (BEAKER) (test code 15 mmol/L 21-29 L = 388) BASE EXCESS ARTERIAL (BEAKER) -8.7 mmol/L -2.0-3.0 L (test code = 387) PATIENT TEMPERATURE (BEAKER) 36.5 C (test code = 1818) FIO2 (BEAKER) (test code = 1819) 21.0 % PROTHROMBIN [id number] 11:17:00 Test Item Value Reference Range Interpretation Comments PROTIME (BEAKER) (test code = 23.8 seconds 11.7-14.7 H 759) INR (BEAKER) (test code = 370) 2.1 <=5.9 RECOMMENDED COUMADIN/WARFARIN INR THERAPY RANGESSTANDARD DOSE: 2.0 - 3.0 Includes: PROPHYLAXIS forvenous thrombosis, systemic embolization; TREATMENT for venous thrombosis and/or pulmonary embolus.HIGH RISK: Target INR is 2.5-3.5 for patients with mechanical heart valves.[id number] 11:17:00 Test Item Value Reference Range Interpretation Comments FIBRINOGEN LEVEL (BEAKER) (test 337 mg/dl 225-434 code = 658) CBC W/PLT COUNT & AUTO [id number] 11:13:00 Test Item Value Reference Range Interpretation Comments WHITE BLOOD CELL COUNT (BEAKER) 9.2 K/ L 3.5-10.5 (test code = 775) RED BLOOD CELL COUNT (BEAKER) 2.92 M/ L 4.63-6.08 L (test code = 761) HEMOGLOBIN (BEAKER) (test code = 8.9 GM/DL 13.7-17.5 L 410) HEMATOCRIT (BEAKER) (test code = 28.0 % 40.1-51.0 L 411) MEAN CORPUSCULAR VOLUME (BEAKER) 95.9 fL 79.0-92.2 H (test code = 753) MEAN CORPUSCULAR HEMOGLOBIN 30.5 pg 25.7-32.2 (BEAKER) (test code = 751) MEAN CORPUSCULAR HEMOGLOBIN CONC 31.8 GM/DL 32.3-36.5 L (BEAKER) (test code = 752) RED CELL DISTRIBUTION WIDTH 15.0 % 11.6-14.4 H (BEAKER) (test code = 412) PLATELET COUNT (BEAKER) (test code 46 K/CU MM 150-450 L = 756) MEAN PLATELET VOLUME (BEAKER) 12.1 fL 9.4-12.4 (test code = 754) NUCLEATED RED BLOOD CELLS (BEAKER) 0 /100 WBC 0-0 (test code = 413) (CELLAVISION MANUAL DIFF)2017-12-27 11:13:00 Test Item Value Reference Range Interpretation Comments NEUTROPHILS - REL 70 % (CELLAVISION)(BEAKER) (test code = 2816) LYMPHOCYTES - REL 4 % (CELLAVISION)(BEAKER) (test code = 2817) MONOCYTES - REL 2 % (CELLAVISION)(BEAKER) (test code = 2818) MYELOCYTES - REL 3 % 0-0 H (CELLAVISION)(BEAKER) (test code = 2822) BANDS - REL (CELLAVISION)(BEAKER) 21 % 0-10 H (test code = 2826) NEUTROPHILS - ABS 6.44 K/ul 1.78-5.38 H (CELLAVISION)(BEAKER) (test code = 2830) LYMPHOCYTES - ABS 0.37 K/ul 1.32-3.57 L (CELLAVISION)(BEAKER) (test code = 2831) MONOCYTES - ABS 0.18 K/uL 0.30-0.82 L (CELLAVISION)(BEAKER) (test code = 2832) MYELOCYTES-ABS 0.28 K/uL 0.00-0.00 H (CELLAVISION)(BEAKER) (test code = 2837) BANDS - ABS (CELLAVISION)(BEAKER) 1.93 K/uL 0.00-0.80 H (test code = 2840) TOTAL COUNTED (BEAKER) (test code 100 = 1351) WBC MORPHOLOGY (BEAKER) (test Normal code = 487) PLT MORPHOLOGY (BEAKER) (test Normal code = 486) ANISOCYTOSIS (BEAKER) (test code 2+ moderate = 961) MICROCYTES (BEAKER) (test code = 2+ moderate 965) POIKILOCYTES (BEAKER) (test code 3+ many = 966) OVALOCYTES (BEAKER) (test code = 1+ few 477) MICKEY CELLS (BEAKER) (test code = 1+ few 474) ARTIFACT (CELLAVISION)(BEAKER) Present (test code = 3432) PLATELET CONCENTRATION Decreased (CELLAVISION)(BEAKER) (test code = 3438) Received comment: User comments: Slide comments:RESPIRATORY PANEL [id number] 10:38:00 Test Item Value Reference Range Interpretation Comments HUMAN METAPNEUMOVIRUS Not detected Not detected, (BEAKER) (test code = Inconclusive 4436) RHINOVIRUS (BEAKER) (test Not detected Not detected, code = 2684) Inconclusive INFLUENZA A (BEAKER) (test Not detected Not detected, code = 2685) Inconclusive INFLUENZA A SUBTYPE H1 Not detected Not detected, (BEAKER) (test code = Inconclusive 2686) INFLUENZA A SUBTYPE H3 Not detected Not detected, (BEAKER) (test code = Inconclusive 2687) INFLUENZA A SUBTYPE Not detected Not detected, H1-2009 (BEAKER) (test Inconclusive code = 3198) INFLUENZA B (BEAKER) (test Not detected Not detected, code = 2688) Inconclusive RESPIRATORY SYNCYTIAL Not detected Not detected, VIRUS (BEAKER) (test code Inconclusive = 3199) PARAINFLUENZA VIRUS 1 Not detected Not detected, (BEAKER) (test code = Inconclusive 2691) PARAINFLUENZA VIRUS 2 Not detected Not detected, (BEAKER) (test code = Inconclusive 2692) PARAINFLUENZA VIRUS 3 Not detected Not detected, (BEAKER) (test code = Inconclusive 2693) PARAINFLUENZA VIRUS 4 Not detected Not detected, (BEAKER) (test code = Inconclusive 3200) ADENOVIRUS (BEAKER) (test Not detected Not detected, code = 2694) Inconclusive CORONAVIRUS 229E (BEAKER) Not detected Not detected, (test code = 3201) Inconclusive CORONAVIRUS HKU1 (BEAKER) Not detected Not detected, (test code = 3202) Inconclusive CORONAVIRUS NL63 (BEAKER) Not detected Not detected, (test code = 3203) Inconclusive CORONAVIRUS OC43 (BEAKER) Not detected Not detected, (test code = 3204) Inconclusive BORDETELLA PERTUSSIS Not detected Not detected, (BEAKER) (test code = Inconclusive 3205) CHLAMYDOPHILA PNEUMONIAE Not detected Not detected, (BEAKER) (test code = Inconclusive 3206) MYCOPLASMA PNEUMONIAE Not detected Not detected, (BEAKER) (test code = Inconclusive 3207) TACROLIMUS [id number] 08:44:00 Test Item Value Reference Range Interpretation Comments TACROLIMUS BLOOD (BEAKER) (test 12.2 ng/mL 10.0-20.0 code = 657) [id number] 08:35:00 Test Item Value Reference Range Interpretation Comments MAGNESIUM (BEAKER) (test code = 1.7 mg/dL 1.6-2.6 627) CALCIUM, [id number] 06:59:00 Test Item Value Reference Range Interpretation Comments CALCIUM IONIZED (BEAKER) (test 1.05 mmol/L 1.12-1.27 L code = 698) PH, BLOOD (BEAKER) (test code = 7.35 1810) Check serum Ionized Calcium level after 4 hours after IV Calcium replacement. BASIC METABOLIC [id number] 06:02:00 Test Item Value Reference Range Interpretation Comments SODIUM (BEAKER) 141 meq/L 136-145 (test code = 381) POTASSIUM (BEAKER) 4.5 meq/L 3.5-5.1 (test code = 379) CHLORIDE (BEAKER) 112 meq/L 98-107 H (test code = 382) CO2 (BEAKER) (test 15 meq/L 22-29 L code = 355) BLOOD UREA NITROGEN 38 mg/dL 7-21 H (BEAKER) (test code = 354) CREATININE (BEAKER) 1.96 mg/dL 0.57-1.25 H (test code = 358) GLUCOSE RANDOM 117 mg/dL 70-105 H (BEAKER) (test code = 652) CALCIUM (BEAKER) 7.9 mg/dL 8.4-10.2 L (test code = 697) EGFR (BEAKER) (test 35 mL/min/1.73 ESTIMA ROBERTA GFR IS code = 1092) sq m NOT ACCURATE CREATININE CLEARANCE IN PREDICTING GLOMERULAR FILTRATION RATE . ESTIMATED GFR I S NOT APPLICABLE FOR DIALYSIS PATIEN TS. LACTIC ACID, VENOUS, WHOLE [id number] 05:50:00 Test Item Value Reference Range Interpretation Comments LACTATE BLOOD VENOUS (2) (BEAKER) 5.9 mmol/L 0.5-2.2 H (test code = 2872) Effective 11/02/2015: Units/Reference Range ChangeNew: 0.5-2.2 mmol/L Previous: 5-20 mg/dLBLOOD GAS, [id number] 05:29:00 Test Item Value Reference Range Interpretation Comments PH VENOUS (BEAKER) (test code = 7.34 7.32-7.42 701) PCO2 VENOUS (BEAKER) (test code = 33 mmHg 41-51 L 755) PO2 VENOUS (BEAKER) (test code = 50 mmHg 25-40 H 702) O2 SATURATION VENOUS (BEAKER) 83.5 % 40.0-70.0 H (test code = 703) HCO3 VENOUS (BEAKER) (test code = 17 mmol/L 21-29 L 705) BASE EXCESS VENOUS (BEAKER) (test -7.7 mmol/L -2.0-3.0 L code = 704) PATIENT TEMPERATURE (BEAKER) 37.0 C (test code = 1818) FIO2 (BEAKER) (test code = 1819) 21.0 % STREP PNEUMONIAE [id number] 04:39:00 Test Item Value Reference Range Interpretation Comments STREP PNEUMONIAE Presumptive negative Presumptive negative ANTIGEN (BEAKER) for pneumococcal for pneumococcal (test code = 1615) pneumonia - see pneumonia - see comment commen Presumptive negative for pneumococcal pneumonia, suggesting no current or recent pneumococcal infection. Infection due to S. pneumoniae cannot be ruled out since the antigen present in the sample may be below the detection limit of the test.LEGIONELLA ANTIGEN, [id number] 04:39:00 Test Item Value Reference Range Interpretation Comments L. PNEUMOPHILA Negative - see Negative fo r L. SEROGP 1 UR AG comment pneumophila (BEAKER) (test code serogrou p 1 antigen, = 1156) suggesting no r ecent or current infe ction with this serog roup. Legionellosis c annot be ruled out si nce other serogroup s and species may cau se disease. [id number] 02:38:00 Test Item Value Reference Range Interpretation Comments POTASSIUM (BEAKER) (test code = 5.2 meq/L 3.5-5.1 H 379) LACTIC ACID, ARTERIAL, WHOLE [id number] 02:38:00 Test Item Value Reference Range Interpretation Comments LACTATE BLOOD 6.1 mmol/L 0.5-2.2 H Specimen sligh tly ARTERIAL (2) (BEAKER) hemoly zed (test code = 2874) Effective 11/02/2015: Units/Reference Range ChangeNew: 0.5-2.2 mmol/L Previous: 5-20 mg/dLBLOOD GAS, [id number] 02:17:00 Test Item Value Reference Range Interpretation Comments PH VENOUS (BEAKER) (test code = 7.27 7.32-7.42 L 701) PCO2 VENOUS (BEAKER) (test code 31 mmHg 41-51 L = 755) PO2 VENOUS (BEAKER) (test code = 49 mmHg 25-40 H 702) O2 SATURATION VENOUS (BEAKER) 80.2 % 40.0-70.0 H (test code = 703) HCO3 VENOUS (BEAKER) (test code 14 mmol/L 21-29 L = 705) BASE EXCESS VENOUS (BEAKER) -11.7 mmol/L -2.0-3.0 L (test code = 704) PATIENT TEMPERATURE (BEAKER) 37.0 C (test code = 1818) FIO2 (BEAKER) (test code = 1819) 100.0 % BASIC METABOLIC [id number] 01:24:00 Test Item Value Reference Range Interpretation Comments SODIUM (BEAKER) 137 meq/L 136-145 (test code = 381) POTASSIUM (BEAKER) 5.8 meq/L 3.5-5.1 H (test code = 379) CHLORIDE (BEAKER) 114 meq/L 98-107 H (test code = 382) CO2 (BEAKER) (test 9 meq/L 22-29 LL code = 355) BLOOD UREA NITROGEN 36 mg/dL 7-21 H (BEAKER) (test code = 354) CREATININE (BEAKER) 1.82 mg/dL 0.57-1.25 H (test code = 358) GLUCOSE RANDOM 93 mg/dL 70-105 (BEAKER) (test code = 652) CALCIUM (BEAKER) 7.7 mg/dL 8.4-10.2 L (test code = 697) EGFR (BEAKER) (test 38 mL/min/1.73 ESTIMA ROBERTA GFR IS code = 1092) sq m NOT ACCURATE CREATININE CLEARANCE IN PREDICTING GLOMERULAR FILTRATION RATE . ESTIMATED GFR I S NOT APPLICABLE FOR DIALYSIS PATIEN TS. [id number] 01:12:00 Test Item Value Reference Range Interpretation Comments MAGNESIUM (BEAKER) (test code = 1.2 mg/dL 1.6-2.6 L 627) LACTIC ACID, VENOUS, WHOLE [id number] 01:04:00 Test Item Value Reference Range Interpretation Comments LACTATE BLOOD VENOUS (2) (BEAKER) 6.2 mmol/L 0.5-2.2 H (test code = 2872) Effective 11/02/2015: Units/Reference Range ChangeNew: 0.5-2.2 mmol/L Previous: 5-20 mg/dLCALCIUM, [id number] 00:32:00 Test Item Value Reference Range Interpretation Comments CALCIUM IONIZED (BEAKER) (test 1.05 mmol/L 1.12-1.27 L code = 698) PH, BLOOD (BEAKER) (test code = 7.22 1810) BLOOD GAS, [id number] 00:31:00 Test Item Value Reference Range Interpretation Comments PH VENOUS (BEAKER) (test code = 7.22 7.32-7.42 L 701) PCO2 VENOUS (BEAKER) (test code 29 mmHg 41-51 L = 755) PO2 VENOUS (BEAKER) (test code = 51 mmHg 25-40 H 702) O2 SATURATION VENOUS (BEAKER) 79.7 % 40.0-70.0 H (test code = 703) HCO3 VENOUS (BEAKER) (test code 12 mmol/L 21-29 L = 705) BASE EXCESS VENOUS (BEAKER) -14.5 mmol/L -2.0-3.0 L (test code = 704) PATIENT TEMPERATURE (BEAKER) 37.0 C (test code = 1818) FIO2 (BEAKER) (test code = 1819) 21.0 % HEMOGLOBIN AND [id number] 00:28:00 Test Item Value Reference Range Interpretation Comments HEMOGLOBIN (BEAKER) (test code = 9.9 GM/DL 13.7-17.5 L 410) HEMATOCRIT (BEAKER) (test code = 31.0 % 40.1-51.0 L 411) (CELLAVISION MANUAL DIFF)[id number] 22:19:00 Test Item Value Reference Range Interpretation Comments NEUTROPHILS - REL 61 % (CELLAVISION)(BEAKER) (test code = 2816) LYMPHOCYTES - REL 2 % (CELLAVISION)(BEAKER) (test code = 2817) MONOCYTES - REL 12 % (CELLAVISION)(BEAKER) (test code = 2818) METAMYELOCYTES - REL 1 % 0-0 H (CELLAVISION)(BEAKER) (test code = 2821) BANDS - REL (CELLAVISION)(BEAKER) 24 % 0-10 H (test code = 2826) NEUTROPHILS - ABS 10.61 K/ul 1.78-5.38 H (CELLAVISION)(BEAKER) (test code = 2830) LYMPHOCYTES - ABS 0.35 K/ul 1.32-3.57 L (CELLAVISION)(BEAKER) (test code = 2831) MONOCYTES - ABS 2.09 K/uL 0.30-0.82 H (CELLAVISION)(BEAKER) (test code = 2832) METAMYELOCYTES - ABS 0.17 K/uL 0.00-0.00 H (CELLAVISION)(BEAKER) (test code = 2836) BANDS - ABS (CELLAVISION)(BEAKER) 4.18 K/uL 0.00-0.80 H (test code = 2840) TOTAL COUNTED (BEAKER) (test code 100 = 1351) WBC MORPHOLOGY (BEAKER) (test code Normal = 487) GIANT PLATELETS (BEAKER) (test Present code = 313) POLYCHROMATOPHILLIC RBCS(BEAKER) 1+ few (test code = 478) HYPOCHROMIA (BEAKER) (test code = 1+ few 963) ANISOCYTOSIS (BEAKER) (test code = 1+ few 961) MICROCYTES (BEAKER) (test code = 1+ few 965) POIKILOCYTES (BEAKER) (test code = 3+ many 966) PLATELET CONCENTRATION Decreased (CELLAVISION)(BEAKER) (test code = 3438) Received comment: User comments: Slide comments:COMPREHENSIVE METABOLIC PANEL 2017-12-26 22:18:00 Test Item Value Reference Range Interpretation Comments TOTAL PROTEIN 4.4 gm/dL 6.0-8.3 L (BEAKER) (test code = 770) ALBUMIN (BEAKER) 3.3 g/dL 3.5-5.0 L (test code = 1145) ALKALINE PHOSPHATASE 210 U/L 40-150 H (BEAKER) (test code = 346) BILIRUBIN TOTAL 1.2 mg/dL 0.2-1.2 (BEAKER) (test code = 377) SODIUM (BEAKER) (test 141 meq/L 136-145 code = 381) POTASSIUM (BEAKER) 5.6 meq/L 3.5-5.1 H (test code = 379) CHLORIDE (BEAKER) 117 meq/L 98-107 H (test code = 382) CO2 (BEAKER) (test 10 meq/L 22-29 LL code = 355) BLOOD UREA NITROGEN 33 mg/dL 7-21 H (BEAKER) (test code = 354) CREATININE (BEAKER) 1.97 mg/dL 0.57-1.25 H (test code = 358) GLUCOSE RANDOM 84 mg/dL 70-105 (BEAKER) (test code = 652) CALCIUM (BEAKER) 7.8 mg/dL 8.4-10.2 L (test code = 697) AST (SGOT) (BEAKER) 49 U/L 5-34 H (test code = 353) ALT (SGPT) (BEAKER) 51 U/L 6-55 (test code = 347) EGFR (BEAKER) (test 35 mL/min/1.73 ESTIMA ROBERTA GFR IS code = 1092) sq m NOT ACCURATE CREATININE CLEARANCE IN PREDICTING GLOMERULAR FILTRATION RATE . ESTIMATED GFR I S NOT APPLICABLE FOR DIALYSIS PATIEN TS. CBC W/PLT COUNT & AUTO [id number] 22:18:00 Test Item Value Reference Range Interpretation Comments WHITE BLOOD CELL COUNT (BEAKER) 17.4 K/ L 3.5-10.5 H (test code = 775) RED BLOOD CELL COUNT (BEAKER) 3.52 M/ L 4.63-6.08 L (test code = 761) HEMOGLOBIN (BEAKER) (test code = 10.7 GM/DL 13.7-17.5 L 410) HEMATOCRIT (BEAKER) (test code = 35.9 % 40.1-51.0 L 411) MEAN CORPUSCULAR VOLUME (BEAKER) 102.0 fL 79.0-92.2 H (test code = 753) MEAN CORPUSCULAR HEMOGLOBIN 30.4 pg 25.7-32.2 (BEAKER) (test code = 751) MEAN CORPUSCULAR HEMOGLOBIN CONC 29.8 GM/DL 32.3-36.5 L (BEAKER) (test code = 752) RED CELL DISTRIBUTION WIDTH 14.8 % 11.6-14.4 H (BEAKER) (test code = 412) PLATELET COUNT (BEAKER) (test code 92 K/CU MM 150-450 L = 756) MEAN PLATELET VOLUME (BEAKER) 12.2 fL 9.4-12.4 (test code = 754) NUCLEATED RED BLOOD CELLS (BEAKER) 0 /100 WBC 0-0 (test code = 413) LACTIC ACID, VENOUS, WHOLE [id number] 22:08:00 Test Item Value Reference Range Interpretation Comments LACTATE BLOOD VENOUS (2) (BEAKER) 9.1 mmol/L 0.5-2.2 H (test code = 2872) Effective 11/02/2015: Units/Reference Range ChangeNew: 0.5-2.2 mmol/L Previous: 5-20 mg/dLRAD, CHEST, 1 VIEW, NON [id number] 21:46:00Reason for exam:->SOBFINAL REPORT RAD, CHEST, 1 VIEW, NON DEPT INDICATION: SOB COMPARISON: Prior day's exam FINDINGS: Portable frontal view of the chest. IMPRESSION: Support Lines: None. Lungs andpleura: Bibasilar subsegmental atelectasis. Right basilar consolidation, concerning for developing pneumonia. Trace bilateral effusions. No pneumothorax.Heart and mediastinum: Stable contours. Stable surgical changes.Additional findings: None. Signed: JR Rizzo Robert MDReport Verified Date/Time: 12/26/2017 21:46:39 Reading Location: [address] Reading Room TACROLIMUS [id number] 15:12:00 Test Item Value Reference Range Interpretation Comments TACROLIMUS BLOOD (BEAKER) (test 11.5 ng/mL 10.0-20.0 code = 657) [id number] 11:00:00 Test Item Value Reference Range Interpretation Comments MAGNESIUM (BEAKER) (test code = 1.9 mg/dL 1.6-2.6 627) BASIC METABOLIC [id number] 11:00:00 Test Item Value Reference Range Interpretation Comments SODIUM (BEAKER) 141 meq/L 136-145 (test code = 381) POTASSIUM (BEAKER) 5.1 meq/L 3.5-5.1 (test code = 379) CHLORIDE (BEAKER) 109 meq/L 98-107 H (test code = 382) CO2 (BEAKER) (test 25 meq/L 22-29 code = 355) BLOOD UREA NITROGEN 31 mg/dL 7-21 H (BEAKER) (test code = 354) CREATININE (BEAKER) 1.59 mg/dL 0.57-1.25 H (test code = 358) GLUCOSE RANDOM 129 mg/dL 70-105 H (BEAKER) (test code = 652) CALCIUM (BEAKER) 9.2 mg/dL 8.4-10.2 (test code = 697) EGFR (BEAKER) (test 45 mL/min/1.73 ESTIMA ROBERTA GFR IS code = 1092) sq m NOT ACCURATE CREATININE CLEARANCE IN PREDICTING GLOMERULAR FILTRATION RATE . ESTIMATED GFR I S NOT APPLICABLE FOR DIALYSIS PATIEN TS. CBC W/PLT COUNT & AUTO [id number] 10:42:00 Test Item Value Reference Range Interpretation Comments WHITE BLOOD CELL COUNT (BEAKER) 3.9 K/ L 3.5-10.5 (test code = 775) RED BLOOD CELL COUNT (BEAKER) 3.75 M/ L 4.63-6.08 L (test code = 761) HEMOGLOBIN (BEAKER) (test code = 11.8 GM/DL 13.7-17.5 L 410) HEMATOCRIT (BEAKER) (test code = 36.3 % 40.1-51.0 L 411) MEAN CORPUSCULAR VOLUME (BEAKER) 96.8 fL 79.0-92.2 H (test code = 753) MEAN CORPUSCULAR HEMOGLOBIN 31.5 pg 25.7-32.2 (BEAKER) (test code = 751) MEAN CORPUSCULAR HEMOGLOBIN CONC 32.5 GM/DL 32.3-36.5 (BEAKER) (test code = 752) RED CELL DISTRIBUTION WIDTH 14.0 % 11.6-14.4 (BEAKER) (test code = 412) PLATELET COUNT (BEAKER) (test code 73 K/CU MM 150-450 L = 756) MEAN PLATELET VOLUME (BEAKER) 9.9 fL 9.4-12.4 (test code = 754) NUCLEATED RED BLOOD CELLS (BEAKER) 0 /100 WBC 0-0 (test code = 413) NEUTROPHILS RELATIVE PERCENT 75 % (BEAKER) (test code = 429) LYMPHOCYTES RELATIVE PERCENT 14 % (BEAKER) (test code = 430) MONOCYTES RELATIVE PERCENT 8 % (BEAKER) (test code = 431) EOSINOPHILS RELATIVE PERCENT 2 % (BEAKER) (test code = 432) BASOPHILS RELATIVE PERCENT 1 % (BEAKER) (test code = 437) NEUTROPHILS ABSOLUTE COUNT 2.96 K/ L 1.78-5.38 (BEAKER) (test code = 670) LYMPHOCYTES ABSOLUTE COUNT 0.53 K/ L 1.32-3.57 L (BEAKER) (test code = 414) MONOCYTES ABSOLUTE COUNT (BEAKER) 0.30 K/ L 0.30-0.82 (test code = 415) EOSINOPHILS ABSOLUTE COUNT 0.09 K/ L 0.04-0.54 (BEAKER) (test code = 416) BASOPHILS ABSOLUTE COUNT (BEAKER) 0.03 K/ L 0.01-0.08 (test code = 417) IMMATURE GRANULOCYTES-RELATIVE 1 % 0-1 PERCENT (BEAKER) (test code = 2801) BLOOD [id number] 13:27:00 Test Item Value Reference Range Interpretation Comments CULTURE (BEAKER) (test No growth in 5 days code = 1095) SPUTUM CULTURE + GRAM [id number] 13:39:00 Test Item Value Reference Range Interpretation Comments CULTURE (BEAKER) 2+ Normal respiratory (test code = 1095) tre present GRAM STAIN RESULT 3+ WBCs (BEAKER) (test code = 1123) GRAM STAIN RESULT 0-5 epithelial cells (BEAKER) (test code = 44924) GRAM STAIN RESULT No organisms seen (BEAKER) (test code = 15532) TACROLIMUS [id number] 09:48:00 Test Item Value Reference Range Interpretation Comments TACROLIMUS BLOOD (BEAKER) (test 7.3 ng/mL 10.0-20.0 L code = 657) BASIC METABOLIC [id number] 06:43:00 Test Item Value Reference Range Interpretation Comments SODIUM (BEAKER) 139 meq/L 136-145 (test code = 381) POTASSIUM (BEAKER) 4.6 meq/L 3.5-5.1 (test code = 379) CHLORIDE (BEAKER) 111 meq/L 98-107 H (test code = 382) CO2 (BEAKER) (test 20 meq/L 22-29 L code = 355) BLOOD UREA NITROGEN 26 mg/dL 7-21 H (BEAKER) (test code = 354) CREATININE (BEAKER) 1.26 mg/dL 0.57-1.25 H (test code = 358) GLUCOSE RANDOM 171 mg/dL 70-105 H (BEAKER) (test code = 652) CALCIUM (BEAKER) 8.3 mg/dL 8.4-10.2 L (test code = 697) EGFR (BEAKER) (test 59 mL/min/1.73 ESTIMA ROBERTA GFR IS code = 1092) sq m NOT ACCURATE CREATININE CLEARANCE IN PREDICTING GLOMERULAR FILTRATION RATE . ESTIMATED GFR I S NOT APPLICABLE FOR DIALYSIS PATIEN TS. CBC W/PLT COUNT & AUTO [id number] 06:41:00 Test Item Value Reference Range Interpretation Comments WHITE BLOOD CELL COUNT (BEAKER) 5.0 K/ L 4.0-10.0 (test code = 775) RED BLOOD CELL COUNT (BEAKER) 3.62 M/ L 4.20-5.80 L (test code = 761) HEMOGLOBIN (BEAKER) (test code = 11.5 GM/DL 13.0-16.8 L 410) HEMATOCRIT (BEAKER) (test code = 35.2 % 40.0-50.0 L 411) MEAN CORPUSCULAR VOLUME (BEAKER) 97.2 fL 82.0-98.0 (test code = 753) MEAN CORPUSCULAR HEMOGLOBIN 31.9 pg 27.0-33.0 (BEAKER) (test code = 751) MEAN CORPUSCULAR HEMOGLOBIN CONC 32.9 GM/DL 32.0-36.0 (BEAKER) (test code = 752) RED CELL DISTRIBUTION WIDTH 12.0 % 10.3-14.2 (BEAKER) (test code = 412) PLATELET COUNT (BEAKER) (test 116 K/CU MM 150-430 L code = 756) MEAN PLATELET VOLUME (BEAKER) 7.6 fL 6.5-10.5 (test code = 754) NUCLEATED RED BLOOD CELLS 0 /100 WBC 0-0 (BEAKER) (test code = 413) NEUTROPHILS RELATIVE PERCENT 85 % (BEAKER) (test code = 429) LYMPHOCYTES RELATIVE PERCENT 10 % (BEAKER) (test code = 430) MONOCYTES RELATIVE PERCENT 4 % (BEAKER) (test code = 431) EOSINOPHILS RELATIVE PERCENT 1 % (BEAKER) (test code = 432) BASOPHILS RELATIVE PERCENT 0 % (BEAKER) (test code = 437) NEUTROPHILS ABSOLUTE COUNT 4.24 K/ L 1.80-8.00 (BEAKER) (test code = 670) LYMPHOCYTES ABSOLUTE COUNT 0.51 K/ L 1.48-4.50 L (BEAKER) (test code = 414) MONOCYTES ABSOLUTE COUNT (BEAKER) 0.20 K/ L 0.00-1.30 (test code = 415) EOSINOPHILS ABSOLUTE COUNT 0.03 K/ L 0.00-0.50 (BEAKER) (test code = 416) BASOPHILS ABSOLUTE COUNT (BEAKER) 0.02 K/ L 0.00-0.20 (test code = 417) 0.00TACROLIMUS [id number] 12:16:00 Test Item Value Reference Range Interpretation Comments TACROLIMUS BLOOD (BEAKER) (test 7.3 ng/mL 10.0-20.0 L code = 657) CBC W/PLT COUNT & AUTO [id number] 07:26:00 Test Item Value Reference Range Interpretation Comments WHITE BLOOD CELL COUNT (BEAKER) 4.3 K/ L 4.0-10.0 (test code = 775) RED BLOOD CELL COUNT (BEAKER) 3.40 M/ L 4.20-5.80 L (test code = 761) HEMOGLOBIN (BEAKER) (test code = 11.2 GM/DL 13.0-16.8 L 410) HEMATOCRIT (BEAKER) (test code = 32.3 % 40.0-50.0 L 411) MEAN CORPUSCULAR VOLUME (BEAKER) 95.0 fL 82.0-98.0 (test code = 753) MEAN CORPUSCULAR HEMOGLOBIN 32.9 pg 27.0-33.0 (BEAKER) (test code = 751) MEAN CORPUSCULAR HEMOGLOBIN CONC 34.6 GM/DL 32.0-36.0 (BEAKER) (test code = 752) RED CELL DISTRIBUTION WIDTH 12.8 % 10.3-14.2 (BEAKER) (test code = 412) PLATELET COUNT (BEAKER) (test 109 K/CU MM 150-430 L code = 756) MEAN PLATELET VOLUME (BEAKER) 7.3 fL 6.5-10.5 (test code = 754) NUCLEATED RED BLOOD CELLS 0 /100 WBC 0-0 (BEAKER) (test code = 413) NEUTROPHILS RELATIVE PERCENT 72 % (BEAKER) (test code = 429) LYMPHOCYTES RELATIVE PERCENT 18 % (BEAKER) (test code = 430) MONOCYTES RELATIVE PERCENT 8 % (BEAKER) (test code = 431) EOSINOPHILS RELATIVE PERCENT 2 % (BEAKER) (test code = 432) BASOPHILS RELATIVE PERCENT 0 % (BEAKER) (test code = 437) NEUTROPHILS ABSOLUTE COUNT 3.07 K/ L 1.80-8.00 (BEAKER) (test code = 670) LYMPHOCYTES ABSOLUTE COUNT 0.77 K/ L 1.48-4.50 L (BEAKER) (test code = 414) MONOCYTES ABSOLUTE COUNT (BEAKER) 0.33 K/ L 0.00-1.30 (test code = 415) EOSINOPHILS ABSOLUTE COUNT 0.09 K/ L 0.00-0.50 (BEAKER) (test code = 416) BASOPHILS ABSOLUTE COUNT (BEAKER) 0.01 K/ L 0.00-0.20 (test code = 417) 0.00BASIC METABOLIC [id number] 06:50:00 Test Item Value Reference Range Interpretation Comments SODIUM (BEAKER) 141 meq/L 136-145 (test code = 381) POTASSIUM (BEAKER) 3.7 meq/L 3.5-5.1 (test code = 379) CHLORIDE (BEAKER) 111 meq/L 98-107 H (test code = 382) CO2 (BEAKER) (test 24 meq/L 22-29 code = 355) BLOOD UREA NITROGEN 20 mg/dL 7-21 (BEAKER) (test code = 354) CREATININE (BEAKER) 1.13 mg/dL 0.57-1.25 (test code = 358) GLUCOSE RANDOM 128 mg/dL 70-105 H (BEAKER) (test code = 652) CALCIUM (BEAKER) 8.3 mg/dL 8.4-10.2 L (test code = 697) EGFR (BEAKER) (test 66 mL/min/1.73 ESTIMA ROBERTA GFR IS code = 1092) sq m NOT ACCURATE CREATININE CLEARANCE IN PREDICTING GLOMERULAR FILTRATION RATE . ESTIMATED GFR I S NOT APPLICABLE FOR DIALYSIS PATIEN TS. SPUTUM CULTURE + GRAM [id number] 15:49:00 Test Item Value Reference Range Interpretation Comments CULTURE (BEAKER) Oropharyngeal (test code = 1095) contamination, specimen rejected. Recollect requested. GRAM STAIN RESULT 3+ White blood cells seen (BEAKER) (test code = 1123) GRAM STAIN RESULT >25 epithelial cells (BEAKER) (test code = 21493) GRAM STAIN RESULT <1+ gram negative rods (BEAKER) (test code = 88276) TACROLIMUS [id number] 13:39:00 Test Item Value Reference Range Interpretation Comments TACROLIMUS BLOOD (BEAKER) (test 6.1 ng/mL 10.0-20.0 L code = 657) RESPIRATORY PANEL [id number] 13:06:00 Test Item Value Reference Range Interpretation Comments HUMAN METAPNEUMOVIRUS Not detected Not detected, (BEAKER) (test code = Inconclusive 2683) RHINOVIRUS (BEAKER) (test Not detected Not detected, code = 2684) Inconclusive INFLUENZA A (BEAKER) (test Not detected Not detected, code = 2685) Inconclusive INFLUENZA A SUBTYPE H1 Not detected Not detected, (BEAKER) (test code = Inconclusive 2686) INFLUENZA A SUBTYPE H3 Not detected Not detected, (BEAKER) (test code = Inconclusive 2687) INFLUENZA A SUBTYPE Not detected Not detected, H1-2009 (BEAKER) (test Inconclusive code = 3198) INFLUENZA B (BEAKER) (test Not detected Not detected, code = 2688) Inconclusive RESPIRATORY SYNCYTIAL Not detected Not detected, VIRUS (BEAKER) (test code Inconclusive = 3199) PARAINFLUENZA VIRUS 1 Not detected Not detected, (BEAKER) (test code = Inconclusive 2691) PARAINFLUENZA VIRUS 2 Not detected Not detected, (BEAKER) (test code = Inconclusive 2692) PARAINFLUENZA VIRUS 3 Not detected Not detected, (BEAKER) (test code = Inconclusive 2693) PARAINFLUENZA VIRUS 4 Not detected Not detected, (BEAKER) (test code = Inconclusive 3200) ADENOVIRUS (BEAKER) (test Not detected Not detected, code = 2694) Inconclusive CORONAVIRUS 229E (BEAKER) Not detected Not detected, (test code = 3201) Inconclusive CORONAVIRUS HKU1 (BEAKER) Not detected Not detected, (test code = 3202) Inconclusive CORONAVIRUS NL63 (BEAKER) Not detected Not detected, (test code = 3203) Inconclusive CORONAVIRUS OC43 (BEAKER) Not detected Not detected, (test code = 3204) Inconclusive BORDETELLA PERTUSSIS Not detected Not detected, (BEAKER) (test code = Inconclusive 3205) CHLAMYDOPHILA PNEUMONIAE Not detected Not detected, (BEAKER) (test code = Inconclusive 3206) MYCOPLASMA PNEUMONIAE Not detected Not detected, (BEAKER) (test code = Inconclusive 3207) TACROLIMUS [id number] 11:17:00 Test Item Value Reference Range Interpretation Comments TACROLIMUS BLOOD (BEAKER) (test 5.9 ng/mL 10.0-20.0 L code = 657) BASIC METABOLIC [id number] 07:20:00 Test Item Value Reference Range Interpretation Comments SODIUM (BEAKER) 141 meq/L 136-145 (test code = 381) POTASSIUM (BEAKER) 4.4 meq/L 3.5-5.1 Specimen slightly (test code = 379) hemolyzed CHLORIDE (BEAKER) 112 meq/L 98-107 H (test code = 382) CO2 (BEAKER) (test 19 meq/L 22-29 L code = 355) BLOOD UREA NITROGEN 25 mg/dL 7-21 H (BEAKER) (test code = 354) CREATININE (BEAKER) 1.23 mg/dL 0.57-1.25 Specimen slightly (test code = 358) hemolyzed GLUCOSE RANDOM 137 mg/dL 70-105 H (BEAKER) (test code = 652) CALCIUM (BEAKER) 8.8 mg/dL 8.4-10.2 (test code = 697) EGFR (BEAKER) (test 60 mL/min/1.73 ESTIMA ROBERTA GFR IS code = 1092) sq m NOT ACCURATE CREATININE CLEARANCE IN PREDICTING GLOMERULAR FILTRATION RATE . ESTIMATED GFR I S NOT APPLICABLE FOR DIALYSIS PATIEN TS. CBC W/PLT COUNT & AUTO [id number] 07:16:00 Test Item Value Reference Range Interpretation Comments WHITE BLOOD CELL COUNT (BEAKER) 6.1 K/ L 4.0-10.0 (test code = 775) RED BLOOD CELL COUNT (BEAKER) 4.01 M/ L 4.20-5.80 L (test code = 761) HEMOGLOBIN (BEAKER) (test code = 12.5 GM/DL 13.0-16.8 L 410) HEMATOCRIT (BEAKER) (test code = 39.1 % 40.0-50.0 L 411) MEAN CORPUSCULAR VOLUME (BEAKER) 97.5 fL 82.0-98.0 (test code = 753) MEAN CORPUSCULAR HEMOGLOBIN 31.0 pg 27.0-33.0 (BEAKER) (test code = 751) MEAN CORPUSCULAR HEMOGLOBIN CONC 31.8 GM/DL 32.0-36.0 L (BEAKER) (test code = 752) RED CELL DISTRIBUTION WIDTH 12.2 % 10.3-14.2 (BEAKER) (test code = 412) PLATELET COUNT (BEAKER) (test 125 K/CU MM 150-430 L code = 756) MEAN PLATELET VOLUME (BEAKER) 7.9 fL 6.5-10.5 (test code = 754) NUCLEATED RED BLOOD CELLS 0 /100 WBC 0-0 (BEAKER) (test code = 413) NEUTROPHILS RELATIVE PERCENT 76 % (BEAKER) (test code = 429) LYMPHOCYTES RELATIVE PERCENT 15 % (BEAKER) (test code = 430) MONOCYTES RELATIVE PERCENT 8 % (BEAKER) (test code = 431) EOSINOPHILS RELATIVE PERCENT 1 % (BEAKER) (test code = 432) BASOPHILS RELATIVE PERCENT 0 % (BEAKER) (test code = 437) NEUTROPHILS ABSOLUTE COUNT 4.59 K/ L 1.80-8.00 (BEAKER) (test code = 670) LYMPHOCYTES ABSOLUTE COUNT 0.93 K/ L 1.48-4.50 L (BEAKER) (test code = 414) MONOCYTES ABSOLUTE COUNT (BEAKER) 0.48 K/ L 0.00-1.30 (test code = 415) EOSINOPHILS ABSOLUTE COUNT 0.06 K/ L 0.00-0.50 (BEAKER) (test code = 416) BASOPHILS ABSOLUTE COUNT (BEAKER) 0.01 K/ L 0.00-0.20 (test code = 417) 0.00CREATINE KINASE (CK), TOTAL AND [id number] 18:57:00 Test Item Value Reference Range Interpretation Comments CREATINE KINASE TOTAL (BEAKER) 35 U/L 29-200 (test code = 380) CREATINE KINASE-MB (BEAKER) (test 0.9 ng/mL 0.0-6.6 code = 750) CREATINE KINASE-MB INDEX (BEAKER) 2.6 % (test code = 395) Effective 05/18/2014: CK-MB Reference Range ChangeNew: 0.0-6.6 Previous: 0.0-4.9CK-MB Reference Range:<6.7 Normal6.7-10.0 Borderline>10.0 AbnormalTROPONIN [id number] 18:57:00 Test Item Value Reference Range Interpretation Comments TROPONIN I (BEAKER) (test code = 397) < ng/mL 0.00-0.03 Effective 05/18/2014: Reference Range [...] disease, and persistent tachyarrhythmia.B-TYPE NATRIURETIC FACTOR (BNP) 2016-10-31 18:57:00 Test Item Value Reference Range Interpretation Comments B-TYPE NATRIURETIC PEPTIDE (BEAKER) 61 pg/mL 0-100 (test code = 700) BASIC METABOLIC [id number] 18:50:00 Test Item Value Reference Range Interpretation Comments SODIUM (BEAKER) 141 meq/L 136-145 (test code = 381) POTASSIUM (BEAKER) 3.8 meq/L 3.5-5.1 Specimen slightly (test code = 379) hemolyzed CHLORIDE (BEAKER) 107 meq/L 98-107 (test code = 382) CO2 (BEAKER) (test 20 meq/L 22-29 L code = 355) BLOOD UREA NITROGEN 28 mg/dL 7-21 H (BEAKER) (test code = 354) CREATININE (BEAKER) 1.45 mg/dL 0.57-1.25 H Specimen slightly (test code = 358) hemolyzed GLUCOSE RANDOM 202 mg/dL 70-105 H (BEAKER) (test code = 652) CALCIUM (BEAKER) 9.4 mg/dL 8.4-10.2 (test code = 697) EGFR (BEAKER) (test 50 mL/min/1.73 ESTIMA ROBERTA GFR IS code = 1092) sq m NOT ACCURATE CREATININE CLEARANCE IN PREDICTING GLOMERULAR FILTRATION RATE . ESTIMATED GFR I S NOT APPLICABLE FOR DIALYSIS PATIEN TS. PT/[id number] 18:50:00 Test Item Value Reference Range Interpretation Comments PROTIME (BEAKER) (test code = 15.2 seconds 11.7-14.7 H 759) INR (BEAKER) (test code = 370) 1.2 <=5.9 PARTIAL THROMBOPLASTIN TIME 33.6 seconds 22.5-36.0 (BEAKER) (test code = 760) RECOMMENDED COUMADIN/WARFARIN INR THERAPY RANGESSTANDARD DOSE: 2.0 - 3.0 Includes: PROPHYLAXIS forvenous thrombosis, systemic embolization; TREATMENT for venous thrombosis and/or pulmonary embolus.HIGH RISK: Target INR is 2.5-3.5 for patients with mechanical heart valves.CBC W/PLT COUNT & AUTO DIFFERENTIAL 2016-10-31 18:47:00 Test Item Value Reference Range Interpretation Comments WHITE BLOOD CELL COUNT (BEAKER) 10.0 K/ L 4.0-10.0 (test code = 775) RED BLOOD CELL COUNT (BEAKER) 4.52 M/ L 4.20-5.80 (test code = 761) HEMOGLOBIN (BEAKER) (test code = 14.6 GM/DL 13.0-16.8 410) HEMATOCRIT (BEAKER) (test code = 42.8 % 40.0-50.0 411) MEAN CORPUSCULAR VOLUME (BEAKER) 94.7 fL 82.0-98.0 (test code = 753) MEAN CORPUSCULAR HEMOGLOBIN 32.3 pg 27.0-33.0 (BEAKER) (test code = 751) MEAN CORPUSCULAR HEMOGLOBIN CONC 34.1 GM/DL 32.0-36.0 (BEAKER) (test code = 752) RED CELL DISTRIBUTION WIDTH 12.2 % 10.3-14.2 (BEAKER) (test code = 412) PLATELET COUNT (BEAKER) (test 158 K/CU MM 150-430 code = 756) MEAN PLATELET VOLUME (BEAKER) 7.4 fL 6.5-10.5 (test code = 754) NUCLEATED RED BLOOD CELLS 0 /100 WBC 0-0 (BEAKER) (test code = 413) NEUTROPHILS RELATIVE PERCENT 81 % (BEAKER) (test code = 429) LYMPHOCYTES RELATIVE PERCENT 12 % (BEAKER) (test code = 430) MONOCYTES RELATIVE PERCENT 6 % (BEAKER) (test code = 431) EOSINOPHILS RELATIVE PERCENT 1 % (BEAKER) (test code = 432) BASOPHILS RELATIVE PERCENT 0 % (BEAKER) (test code = 437) NEUTROPHILS ABSOLUTE COUNT 8.10 K/ L 1.80-8.00 H (BEAKER) (test code = 670) LYMPHOCYTES ABSOLUTE COUNT 1.18 K/ L 1.48-4.50 L (BEAKER) (test code = 414) MONOCYTES ABSOLUTE COUNT (BEAKER) 0.59 K/ L 0.00-1.30 (test code = 415) EOSINOPHILS ABSOLUTE COUNT 0.08 K/ L 0.00-0.50 (BEAKER) (test code = 416) BASOPHILS ABSOLUTE COUNT (BEAKER) 0.02 K/ L 0.00-0.20 (test code = 417) 0.00LACTIC ACID, VENOUS, WHOLE [id number] 18:46:00 Test Item Value Reference Range Interpretation Comments LACTATE BLOOD VENOUS 1.7 mmol/L 0.5-2.2 Specime n moderately (2) (BEAKER) (test hemolyzed code = 2872) Effective 11/02/2015: Units/Reference Range ChangeNew: 0.5-2.2 mmol/L Previous: 5-20 mg/dL
--- OUTSIDE RECORDS SUMMARY | 2020-06-07 18:57 | XMS REPORT | Summary of Care ---
:1955 Author Organization [facility] [place] [address] Care Team Providers Name Role Phone System, Not In Primary Care Provider SARA Mark Crc Navigator Unavailable Reason for Visit Reason Comments Disease Management Encounter Details Date Type Department Care Team Description 06/06[facility] Nephrology MD [place] [address]; [address] [place] [address] [place] [address] [phone] Allergies No Known Active Allergiesdocumented as of this encounter (statuses as of 06/06/2020) Medications Medication Sig Dispensed Refills Start Date End Date Status albuterol HFA (PROAIR Inhale 1-2 Puffs 1 Inhaler 3 01/16/2012 Active HFA) 108 (90 base) by mouth every 6 mcg/act hours as needed inhalerIndications: for Wheezing (or Bronchiectasis (HCCode) shortness of breath). Additional Information Patient not taking. Reason: Patient's preference, Reported on 06/06/2020 predniSONE (DELTASONE) 10 MG Take 1 Tab by mouth daily. Take as directed 100 Tab 2 05/05/2012 Active tabletIndications: Bronchiectasis (HCCode), Anxiety azithromycin (ZITHROMAX) 250 MG Take 1 Tab by mouth 0 04/07/2018 Active tablet every Saturday, Saturday, Saturday. omeprazole (PRILOSEC) 40 MG Take 40 mg by mouth 0 Active capsule daily. propranolol (INDERAL) 10 MG Take 10 mg by mouth 0 Active tablet daily. tacrolimus (PROGRAF) 0.5 MG Take 0.5 mg by mouth 0 0 11/18/2018 Active capsule two times daily. Na Sulfate-K Sulfate-Mg Sulf [SUPREP] Take as 1 Bottle 0 08/0 12/2018 Active (SUPREP BOWEL PREP KIT) directed. 17.5-3.13-1.6 GM/177ML SOLNIndications: Chronic diarrhea, Polyp of cecum Additional Information Patient not taking. Reason: Patient's preference, Reported on 06/06/2020 Pancrelipase, Eip-Umxa-Hlig, Take 2 Caps by mouth 3 240 Cap 6 07/03/2019 Active 15609 units CPEPIndications: times daily (with Chronic diarrhea, Exocrine meals). And 1 cap with pancreatic insufficiency snacks. Additional Information Patient not taking. Reason: Patient's preference, Reported on 06/06/2020 diphenoxylate-atropine (LOMOTIL) Take 1 Tab by mouth 4 120 Tab 3 07/03/2019 Active 2.5-0.025 MG per times daily as needed tabletIndications: Chronic for Diarrhea. diarrhea Additional Information Patient not taking. Reason: Patient's preference, Reported on 06/06/2020 Ergocalciferol (ERGOCAL OR) Take 50,000 Units by 0 Active mouth. sevelamer (RENAGEL) 800 MG Take 1 Tab by mouth 3 90 Tab 2 1 07/02/2019 Active tabletIndications: CKD (chronic times daily. kidney disease) stage 5, GFR less than 15 ml/min (HCCode) Additional Information Patient not taking. Reason: Patient's preference, Reported on 06/06/2020 calcitRIOL (ROCALTROL) 0.25 Take 1 Cap by mouth daily. 30 Cap 2 05/02/2020 Active MCG capsuleIndications: Indications: Secondary Secondary Hyperparathyroidism Hyperparathyroidism Additional Information Patient not taking. Reason: Patient's preference, Reported on 06/06/2020 furosemide (LASIX) 40 MG Take 1 Tab by mouth 30 Tab 3 05/02 Active tabletIndications: CKD (chronic daily as needed for kidney disease) stage 5, GFR Other (leg swelling). less than 15 ml/min (HCCode) sodium bicarbonate 325 MG Take 2 Tabs by mouth 3 120 Tab 2 1 07/02/2019 Active tabletIndications: CKD (chronic times daily. kidney disease) stage 5, GFR less than 15 ml/min (HCCode) Ergocalciferol 1.25 MG (98767 Take 1 Cap by mouth 24 Each 0 05/02/2020 Active UT) CAPSIndications: CKD every 7 days. (chronic kidney disease) stage 5, GFR less than 15 ml/min (HCCode) Additional Information Patient not taking. Reason: Patient's preference, Reported on 06/06/2020 documented as of this encounter (statuses as of 06/06/2020) Active Problems Problem Noted Date CKD (chronic kidney disease) stage 5, GFR less than 15 ml/min (HCCode) 06/06/2020 Cirrhosis of liver with ascites (HCCode) 06/06/2020 Lung transplant recipient (HCCode) 06/06/2020 Chronic diarrhea 01/12/2014 Anxiety 04/15/2012 Last Assessment & Plan: He remains quite anxious and is using hi s xanax twice daily, very low dose. He states the prednisone worsens this and h e uses it consistently when on prednisone but once he tapers down he usually does not require daily dosing. 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 BRONCHIECTASIS Last Assessment & Plan: Mr Desouza is much improved after his recent hospitalization. He does not currently do any form of airway clearance. He has vest but does not use it. I reviewed appropriate use of acapella and asked him to incorporate one treatment daily into this regimen. I had him complete a 6 minute walk today and his oxygen fell to 77% with activity, he required three liters NC to maintain sats above 92% with activity. I will prescribe him oxygen and ask that he use it with activity and sleep. I have asked him to taper off of his steroids down to a base does of 5 mg. He will require a very slow taper off that level and may not tolerate it. I will refer him to [facility] lung transp lant program for further evaluation, Dr. Epperson I will refer him to pulmonary rehab as t his may improve his quality of life. I will see him back after he completes h is lung transplant visit. ATYPICAL MYCOBACTERIAL INFECTION SINUSITIS, CHRONIC documented as of this encounter (statuses as of 06/06/2020) Immunizations Name Administration Dates Next Due Pneumococcal Conjugate 10/21/2008 Td 10/21/2008 documented as of this encounter Social History Tobacco Use Types Packs/Day Years Used Date Former Smoker Cigarettes 07 30 Quit: 10/26/19 05 Smokeless Tobacco: Never Used Alcohol Use Drinks/Week oz/Week Comments No Sex Assigned at Date Recorded Not on file documented as of this encounter Last Filed Vital Signs Vital Sign Reading Time Taken Comments Blood Pressure 91/62 06/06/2020 9:21 AM COOLER MAN Pulse 84 06/06/2020 9:21 AM COOLER MAN Temperature - - Respiratory Rate 16 06/06/2020 9:21 AM COOLER MAN Oxygen Saturation - - Inhaled Oxygen Concentration - - Weight 52.5 kg (115 lb 12.8 oz) 06/06/2020 9:21 AM COOLER MAN Height 167.6 cm (5' 6") 06/06/2020 9:21 AM COOLER MAN Body Mass Index 18.69 06/06/2020 9:21 AM COOLER MAN documented in this encounter Patient Instructions Patient InstructionsRoman Myers MD - 06/06/2020 9:20 AM COOLER MAN Patient Education [facility] Low Sodium Diet (2,000 Milligram): Care Instructions Your Care Instructions Too much sodium causes your body to hold on to extra water. This can raise your blood pressure and force your heart and kidneys to work harder. In very serious cases, this could cause you to be put in the hospital. It might even be life- threatening. By limiting sodium, you will feel better and lower your risk of serious problems. The most common source of sodium is salt. People get most of the salt in their diet from canned, prepared, and packaged foods. Fast food and restaurant meals also are very high in sodium. Your doctor will probably limit your sodium to less than 2,000 milligrams (mg) a day. This limit counts all the sodium in prepared and packaged foods and any salt you add to your food. Follow-up care is a gordon part of your treatment and safety. Be sure to make and go to all appointments, and call your doctor if you are having problems. It's also a good idea to know your test results and keep a list of the medicines you take. How can you care for yourself at home? Read food labels Read labels on cans and food packages. The labels tell you how much sodium is in each serving. Make sure that you look at the serving size. If you eat more than the serving size, you have eaten moresodium. Food labels also tell you the Percent Daily Value for sodium. Choose products with low Percent Daily Values for sodium. Be aware that sodium can come in forms other than salt, including monosodium glutamate (MSG), sodium citrate, and sodium bicarbonate (baking soda). MSG is often added to food. When you eat out, you can sometimes ask for food without MSG or added salt. Buy low-sodium foods Buy foods that are labeled "unsalted" (no salt added), "sodium-free" (less than 5 mg of sodium per serving), or "low-sodium" (less than 140 mg of sodium per serving). Foods labeled "reduced-sodium" and "light sodium" may still have too much sodium. Be sure to read the label to see how much sodium you are getting. Buy fresh vegetables, or frozen vegetables without added sauces. Buy low- sodium versions of canned vegetables, soups, and other canned goods. Prepare low-sodium meals Cut back on the amount of salt you use in cooking. This will help you adjust to the taste. Do notadd salt after cooking. One teaspoon of salt has about 2,300 mg of sodium. Take the salt shaker off the table. Flavor your food with garlic, lemon juice, onion, vinegar, herbs, and spices. Do not use soy sauce, lite soy sauce, steak sauce, onion salt, garlic salt, celery salt, mustard, or ketchup on your food. Use low-sodium salad dressings, sauces, and ketchup. Or make your own salad dressings and sauces without adding salt. Use less salt (or none) when recipes call for it. You can often use half the salt a recipe calls for without losing flavor. Other foods such as rice, pasta, and grains do not need added salt. Rinse canned vegetables, and cook them in fresh water. This removes somebut not allof the salt. Avoid water that is naturally high in sodium or that has been treated with water softeners, whichadd sodium. Call your local water company to find out the sodium content of your water supply. If you buy bottled water, read the label and choose a sodium-free brand. Avoid high-sodium foods Avoid eating: ? Smoked, cured, salted, and canned meat, fish, and poultry. ? Ham, pacheco, hot dogs, and luncheon meats. ? Regular, hard, and processed cheese and regular peanut butter. ? Crackers with salted tops, and other salted snack foods such as pretzels, chips, and salted popcorn. ? Frozen prepared meals, unless labeled low-sodium. ? Canned and dried soups, broths, and bouillon, unless labeled sodium-free or low-sodium. ? Canned vegetables, unless labeled sodium-free or low-sodium. ? Sinhala fries, pizza, tacos, and other fast foods. ? Pickles, olives, ketchup, and other condiments, especially soy sauce, unless labeled sodium-free or low-sodium. Where can you learn more? Go to [email or web address] Click on the magnifying glass tab, and enter V843 in the search box to learn more about "Low Sodium Diet (2,000 Milligram): Care Instructions." Current as of: February 19, 2019Content Version: 12.6 [employer]. Care instructions adapted under license by [facility]. If you have questions about amedical condition or this instruction, always ask your healthcare professional. [employer] disclaims any warranty or liability for your use of this information. 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 Chronic Kidney Disease stage 5 (chronic tacrolimus toxicity, history of ATN) Patient has been on the fence regarding starting dialysis. However, after our discussion today regarding different modalities of dialysis, there pros and cons, and the option of no dialysis with palliative care, he has chosen to proceed with PD if and when absolutely needed. His BP might tolerate PD better and he absolutely does not want to go to dialysis unit 3 times a week. He was made aware of therisks of PD including peritonitis and leak around the site of catheter. He understands.. His daughter is willing to help him if needed. Check BMP today 2. Electrolytes: check today 3. Acid-base: on oral sodium bicarbonate - check today 4. Volume: cont lasix daily for volume overload 5. Hypertension: BP control acceptable. 6. 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 Counseling provided on diet control of his medical condition, prognosis and differential diagnosis of current medical problems, risks and benefits of treatment vs. No treatment, importance of compliance with diet, medications and follow-up. The plan was discussed with the patient who verbalized understanding. F/U in 2 months (needs face to face visit) Thank you for referring this patient for consultation and allowing me to participate in his care. Please do not hesitate to call with any questions. I spent 45 minutes with this patient, more than 75 % of the time was used to discuss management andcare of kidney disease. Chief Complaint: follow up for CKD 5 History: History of Present Illness: Obtained history from patient, daughter is accompanying the patient Joel Desouza is a 64 y.o. 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 Recently admitted to hospital from 04/24/20 to 05/01/20 for NOHEMI, hyperkalemia, confusion, drop in hemoglobin. His Cr was 5.02 at presentation, came down to 4.47 by the time of discharge. Patient was evaluated for liver transplant and has been denied by [facility]. He is waiting for a second opinion from [facility]. He is very depressed about the denial and has lot of questions about future plan of care Reports worsening abdominal distention and leg swelling. He has not been lasix , although he has it at home and was asked to use as needed Reports BP at home has been above 100 systolic. No lightheadedness or dizziness. Denies any n/v/lackof appetite/cp/sob. Still making decent amount of urine Current Medications: Medications reviewed and reconciled in medical records Current Outpatient Medications Medication Sig Dispense Refill albuterol HFA (PROAIR HFA) 108 (90 base) mcg/act inhaler Inhale 1-2 Puffs by mouth every 6 hoursas needed for Wheezing (or shortness of breath). (Patient not taking: Reported on 06/06/2020) 1 Inhaler 3 azithromycin (ZITHROMAX) 250 MG tablet Take 1 Tab by mouth every Saturday, Saturday, Saturday. calcitRIOL (ROCALTROL) 0.25 MCG capsule Take 1 Cap by mouth daily. Indications: Secondary Hyperparathyroidism (Patient not taking: Reported on 06/06/2020) 30 Cap 2 diphenoxylate-atropine (LOMOTIL) 2.5-0.025 MG per tablet Take 1 Tab by mouth 4 times daily as needed for Diarrhea. (Patient not taking: Reported on 06/06/2020) 120 Tab 3 Ergocalciferol (ERGOCAL OR) Take 50,000 Units by mouth. Ergocalciferol 1.25 MG (18931 UT) CAPS Take 1 Cap by mouth every 7 days. (Patient not taking: Reported on 06/06/2020) 24 Each 0 furosemide (LASIX) 40 MG tablet Take 1 Tab by mouth daily as needed for Other (leg swelling). 30Tab 3 Na Sulfate-K Sulfate-Mg Sulf (SUPREP BOWEL PREP KIT) 17.5-3.13-1.6 GM/177ML SOLN [SUPREP] Take as directed. (Patient not taking: Reported on 06/06/2020) 1 Bottle 0 omeprazole (PRILOSEC) 40 MG capsule Take 40 mg by mouth daily. Pancrelipase, Qbs-Lhze-Oplu, 08044 units CPEP Take 2 Caps by mouth 3 times daily (with meals). And 1 cap with snacks. (Patient not taking: Reported on 06/06/2020) 240 Cap 6 predniSONE (DELTASONE) 10 MG tablet Take 1 Tab by mouth daily. Take as directed 100 Tab 2 propranolol (INDERAL) 10 MG tablet Take 10 mg by mouth daily. sevelamer (RENAGEL) 800 MG tablet Take 1 Tab by mouth 3 times daily. (Patient not taking: Reported on 06/06/2020) 90 Tab 2 sodium bicarbonate 325 MG tablet Take 2 Tabs by mouth 3 times daily. 120 Tab 2 tacrolimus (PROGRAF) 0.5 MG capsule Take 0.5 mg by mouth two times daily. No current facility-administered medications for this visit. Allergies: No Known Allergies Past Medical History: Past Medical History: Diagnosis Date [facility] CVID (common variable immunodeficiency) [facility] Past Surgical History: Past Surgical History: Procedure Laterality Date HX LUNG TRANSPLANT, DOUBLE 2014 UNREMARKABLE Social History: Social History Tobacco Use Smoking status: Former Smoker Packs/day: 1.00 Years: 30.00 Pack years: 30.00 Types: Cigarettes Quit date: 10/25/2004 Years since quittin.6 Smokeless tobacco: Never Used Substance Use Topics Alcohol use: No Family History: Family History Problem Relation Name Age of Onset Unremarkable Other Review of Systems: Negative except as noted above Examination: Physical Exam Constitutional: He is oriented to person, place, and time. He appears well-developed. Eyes: Conjunctivae are normal. Neck: No JVD present. No thyromegaly present. Cardiovascular: Normal rate and normal heart sounds. Pulmonary/Chest: Effort normal and breath sounds normal. Abdominal: He exhibits distension. He exhibits no mass. There is no abdominal tenderness. There is no rebound and no guarding. Musculoskeletal: Cervical back: Neck supple. Neurological: He is alert and oriented to person, place, and time. Skin: Skin is warm. Rash noted. Psychiatric: Moods appears depressed, crying at times during interview Data: Laboratory Testing: Reviewed in [facility] Reviewed outside records Radiology Studies: Reviewed in [facility] Reviewed outside records documented in this encounter Plan of Treatment Date Type Specialty Care Team Description 07/04/2020 Office Visit Nephrology Roman Myers MD [address], [place] [address] [phone] Name Type Priority Associated Diagnoses Order S chedule BASIC METABOLIC PANEL Lab Routine CKD (chronic kidney disease) Ordered: 06/06/2020 stage 5, GFR less than 15 ml/min (HCCode) CBC W/O DIFF W PLT Lab Routine CKD (chronic kidney di sease) Ordered: 06/06/2020 stage 5, GFR less than 15 ml/min (HCCode) Health Maintenance Due Date Last Done Comments BMI FOLLOW UP PLAN 1975 ZOSTER VACCINE (1 of 2) 2007 TETANUS SHOT (ADULT) 10/21/2018 10/21/2008 FLU VACCINE > 6 MONTHS 01/30/2020 COLON CANCER SCREENIN02/20/2022 02/20/2019, 08/28/2013 COLONOSCOPY HEPATITIS C SCREENING Completed 04/06/2020, 04/06/2020, 05/29/2018, Additional history exists HIV SCREENING Completed 04/06/2020, 04/06/2020, 05/29/2018, Additional history exists HPV VACCINE Aged Out No longer eligib le based on patient 's age to complete this topic documented as of this encounter Results Not on filedocumented in this encounter Visit Diagnoses Diagnosis CKD (chronic kidney disease) stage 5, GF R less than 15 ml/min (HCCode) - Primary Chronic kidney disease, Stage V Cirrhosis of liver with ascites, unspeci fied hepatic cirrhosis type (HCCode) Lung transplant recipient (HCCode) documented in this encounter Insurance Payer Benefit Plan / Subscriber ID Effective Phone Address T ype Group Dates [facility] [id number] 2019-Pres [address] [address] Medicaid [employer] [place] [place] [address] documented as of this encounter Advance Directives For more information, please contact: [phone] Type Date Recorded Patient Senior Medical Director Explanati on Advance Directives and Living Will Power of Special Delivery Messenger
[2020-06-07] MEDS ORDERED: CALCIUM GLUCONATE 1 GM IVPB 1 GM/50 ML BAG IV ONE (19:12)
[2020-06-07] MEDS ORDERED: POTASSIUM CL SA 10 MEQ TAB PO ONE (19:12)
[2020-06-07] MEDS ORDERED: KCL 20 MEQ/100 mL IVPB 20 MEQ/100 ML BAG IV ONE (19:14)
--- NOTE | 2020-06-07 21:34 | EDPHYS ---
Physician Documentation [facility] Name: Joel Desouza Age: 64 yrs Sex: Male : 1955 Arrival Date: 06/07/2020 Time: 16:29 Bed 7 Private MD: Blayne Centeno E ED Physician Maykel Burton HPI: 06/07 17:08 This 64 yrs old Male presents to ER via Wheelchair with complaints of ma2 Abnormal Lab Results. 17:08 sent form his doctor office for low potassium or low HB, patient has no symptoms . ma2 Onset: The symptoms/episode began/occurred gradually, 1 day(s) ago. Severity of symptoms: At their worst the symptoms were very mild. The patient has experienced similar episodes in the past. Historical: - Allergies: 16:35 No Known Allergies; aa5 - PMHx: 16:40 Cirrhosis; CVID - Common Variable Immune Disorder; tw2 16:35 Skin Cancer; Kidney failure; aa5 - PSHx: 16:40 Lung transplant; Appendectomy; tw2 - Immunization history:: Adult Immunizations. - Social history:: Smoking status: Patient/guardian denies using. ROS: 17:08 Constitutional: Negative for fever, chills, and weight loss. ma2 17:08 All other systems are negative. Exam: 17:08 Constitutional: This is a well developed, well nourished patient who is awake, alert, ma2 and in no acute distress. Head/Face: Normocephalic, atraumatic. Eyes: Pupils equal round and reactive to light, extra-ocular motions intact. Lids and lashes normal. Conjunctiva and sclera are non-icteric and not injected. Cornea within normal limits. Periorbital areas with no swelling, redness, or edema. ENT: Nares patent. No nasal discharge, no septal abnormalities noted. Tympanic membranes are normal and external auditory canals are clear. Oropharynx with no redness, swelling, or masses, exudates, or evidence of obstruction, uvula midline. Mucous membranes moist. Neck: Trachea midline, no thyromegaly or masses palpated, and no cervical lymphadenopathy. Supple, full range of motion without nuchal rigidity, or vertebral point tenderness. No Meningismus. Chest/axilla: Normal chest wall appearance and motion. Nontender with no deformity. No lesions are appreciated. Cardiovascular: Regular rate and rhythm with a normal S1 and S2. No gallops, murmurs, or rubs. Normal PMI, no JVD. No pulse deficits. Respiratory: Lungs have equal breath sounds bilaterally, clear to auscultation and percussion. No rales, rhonchi or wheezes noted. No increased work of breathing, no retractions or nasal flaring. Abdomen/GI: Soft, non-tender, with normal bowel sounds. No distension or tympany. No guarding or rebound. No evidence of tenderness throughout. MS/ Extremity: Pulses equal, no cyanosis. Neurovascular intact. Full, normal range of motion. Neuro: Awake and alert, GCS 15, oriented to person, place, time, and situation. Cranial nerves II-XII grossly intact. Motor strength 5/5 in all extremities. Sensory grossly intact. Cerebellar exam normal. Normal gait. 20:31 ECG was reviewed by the Attending Physician. [place] Vital Signs: 16:45 BP 130 / 80; Pulse 77; Resp 15; Temp 98.3(O); Pulse Ox 100% on R/A; tw2 16:45 Weight 52.16 kg (R); tw2 17:38 BP 133 / 72; Pulse 71; Resp 16; Pulse Ox 100% on R/A; tw2 18:30 BP 127 / 75; Pulse 72; Resp 17; Pulse Ox 100% on R/A; tw2 19:28 BP 124 / 68; Pulse 64; Resp 16; Pulse Ox 100% ; ea 21:54 BP 133 / 87; Pulse 64; Resp 18; Temp 98.9; Pulse Ox 100% on R/A; ea 22:35 BP 129 / 64; Pulse 76; Resp 18; Pulse Ox 100% on R/A; ea 06/08 00:00 BP 160 / 86; Pulse 77; Resp 18; Pulse Ox 100% ; ea 01:09 BP 140 / 84; Pulse 73; Resp 19; Pulse Ox 100% on R/A; ea MDM: 06/07 16:38 Patient medically screened. ma2 18:44 Differential Diagnosis anemia d/t chronic disease, unlikely gi bleeding or other active ma2 bleeding.. he had this issue before . Data reviewed: vital signs, nurses notes. Counseling: I had a detailed discussion with the patient and/or guardian regarding: the historical points, exam findings, and any diagnostic results supporting the discharge/admit diagnosis, the presence of at least one elevated blood pressure reading (>120/80) during this emergency department visit, the need for outpatient follow up. Response to treatment: the patient's symptoms have markedly improved after treatment. 19:41 Patient medically screened. [facility] 06/07 16:51 Order name: CBC with Diff; Complete Time: 18:19 ma2 06/07 16:51 Order name: CMP ma2 06/07 17:40 Order name: Type And Screen ma2 06/07 17:46 Order name: Bb Add On bd 06/07 18:08 Order name: Comprehensive Metabolic Panel; Complete Time: 18:19 EDMS 06/07 19:00 Order name: Type and Screen EDMS 06/07 19:02 Order name: ABO/RH no charge; Complete Time: 19:49 EDNC 06/07 19:51 Order name: EKG; Complete Time: 19:51 [facility] 06/07 17:40 Order name: Transfuse: transfuse 2 Units pRBC, transfuse each unit over 2 hrs for; [facility] Complete Time: 01:09 06/07 17:41 Order name: IV Start; Complete Time: 17:41 tw2 06/07 18:06 Order name: Consent for Blood Transfusion; Complete Time: 18:06 jl7 06/07 19:51 Order name: EKG - Nurse/Tech; Complete Time: 20:19 [facility] EC:31 Rate is 72 beats/min. Rhythm is regular. QRS Pillow is Normal. ME interval is normal. QRS [place] interval is normal. QT interval is normal. No Q waves. T waves are Normal. No ST changes noted. Clinical impression: No evidence of ischemia. Interpreted by me. Reviewed by me. Administered Medications: 19:10 Drug: Potassium Chloride 10 mEq Route: IV; Rate: calculated rate; Site: right forearm; ea 19:10 Not Given (Duplicate Order): Potassium Chloride 40 mEq PO once tw2 19:10 Not Given (Duplicate Order): Potassium Chloride 40 mEq PO once tw2 19:11 Drug: Calcium Gluconate 1 grams Route: IVPB; Infused Over: 60 mins; Site: right forearm;ea 20:19 Follow up: Response: No adverse reaction; IV Status: Completed infusion ea 20:20 Follow up: Response: No adverse reaction; IV Status: Completed infusion ea 20:33 Drug: Potassium Chloride 20 mEq Route: PO; ea 21:25 Follow up: Response: No adverse reaction ea Disposition: 06/07/20 21:33 Discharged to Home. 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 - Condition is Stable. - Discharge Instructions: Blood Transfusion, Adult, Blood Transfusion, [id number], Hypokalemia, Blood Transfusion, Care After, Ytul-[id number], Blood Transfusion, Adult, Care After, Anemia, Nonspecific. - Medication Reconciliation Form, Thank You Letter, Antibiotic Education, Prescription Opioid Use form. - Follow up: Private Physician; When: Tomorrow; Reason: If symptoms return, Continuance of care. Signatures: Dispatcher [employer] [facility] Maykel Burton MD MD cha Calderon, Audri, RN RN aa5 Naeem Giordano, SUPERVISOR FUR [employer]ESS[employer]-C SUPERVISOR FUR DRESSING-Cla1 Desiree Franco RN RN tw2 Margaux Iraheta RN RN jl7 Madison Abdullahi RN RN ea Alzahri, Mohammad, MD MD ma2 Corrections: (The following items were deleted from the chart) 20:44 19:51 Chest Single View+RAD.RAD.BRZ ordered. [facility] 06/08 01:14 06/07 21:33 06/07/2020 21:33 Discharged to Home. Impression: Anemia in neoplastic ea disease; Anemia in other chronic diseases classified elsewhere. Condition is Stable. Discharge Instructions: Anemia, Nonspecific, Blood Transfusion, Adult, Blood Transfusion, Cmay-ng-[id number], Hypokalemia, Blood Transfusion, Care After, Wwno-tg-[id number], Blood Transfusion, Adult, Care After. Forms are Medication Reconciliation Form, Thank You Letter, Antibiotic Education, Prescription Opioid Use. Follow up: Private Physician; When: Tomorrow; Reason: If symptoms return, Continuance of care. [place]
--- NOTE | 2020-06-07 21:34 | ER ---
Nurse's Notes [facility] Name: Joel Desouza Age: 64 yrs Sex: Male : 1955 Arrival Date: 06/07/2020 Time: 16:29 Bed 7 Private MD: Blayne Centeno E Diagnosis: Anemia in neoplastic disease;Anemia in other chronic diseases classified elsewhere Presentation: 06/07 16:35 Chief complaint: Patient states: "my doctor from [facility] called me and said my potassium aa5 is low and I may need a blood transfusion". 16:35 Coronavirus screen: Client denies travel out of the [place] in the last 14 days. At this aa5 time, the client does not indicate any symptoms associated with coronavirus-19. Onset of symptoms was June 07, 2020. 16:35 Acuity: TESSIE 3 aa5 16:35 Method Of Arrival: Wheelchair aa5 17:00 Ebola Screen: No symptoms or risks identified at this time. Initial Sepsis Screen: Does jl7 the patient meet any 2 criteria? No. Patient's initial sepsis screen is negative. Does the patient have a suspected source of infection? No. Patient's initial sepsis screen is negative. Risk Assessment: Do you want to hurt yourself or someone else? Patient reports no desire to harm self or others. Triage Assessment: 17:00 General: Appears in no apparent distress. uncomfortable, Behavior is cooperative. jl7 Historical: - Allergies: 16:35 No Known Allergies; aa5 - PMHx: 16:40 Cirrhosis; CVID - Common Variable Immune Disorder; tw2 16:35 Skin Cancer; Kidney failure; aa5 - PSHx: 16:40 Lung transplant; Appendectomy; tw2 - Immunization history:: Adult Immunizations. - Social history:: Smoking status: Patient/guardian denies using. Screenin:41 Abuse screen: Denies threats or abuse. Nutritional screening: No deficits noted. tw2 Tuberculosis screening: No symptoms or risk factors identified. Fall Risk Secondary diagnosis (15 points) impaired mobility. 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 16:45 General: Appears in no apparent distress. uncomfortable, ill, slender, Behavior is jl7 calm, cooperative, appropriate for age. Pain: Denies pain. Neuro: Level of Consciousness is awake, alert, obeys commands, Oriented to person, place, time, situation. Cardiovascular: Denies chest pain, Patient's skin is warm and dry. Edema is 3+ to left ankle, left foot, left toes, right ankle, right foot and right toes pitting to left ankle, left foot, left toes, right ankle, right foot and right toes. Respiratory: Airway is patent Respiratory effort is even, unlabored, Respiratory pattern is regular, symmetrical, Denies shortness of breath. GI: Abdomen is round non-distended, noted to have ascites. EENT: Oral mucosa is dry. Derm: Skin is dry, Skin is jaundiced, Skin temperature is cool. 16:54 Reassessment: provider at bedside at this time. tw2 17:10 Reassessment: Bingo Usher at the bedside. jl7 17:39 Reassessment: Patient appears in no apparent distress at this time. No changes from tw2 previously documented assessment. Patient and/or family updated on plan of care and expected duration. Pain level reassessed. 17:44 Reassessment: provider at bedside going over lab results at this time. tw2 18:33 Reassessment: Patient appears in no apparent distress at this time. No changes from tw2 previously documented assessment. Patient and/or family updated on plan of care and expected duration. Pain level reassessed. 19:27 General: Appears in no apparent distress. Behavior is calm, cooperative, appropriate ea for age. Pain: Denies pain. Neuro: Level of Consciousness is awake, alert, obeys commands, Oriented to person, place, time, situation. Cardiovascular: Patient's skin is warm and dry. Respiratory: Airway is patent Respiratory effort is even, unlabored, Respiratory pattern is regular, symmetrical. GI: Abdomen is non-distended. Derm: Skin is dry, Skin is jaundiced, Skin temperature is cool. 19:46 Reassessment: Attempted to start second IV, pt refused IV states, "I don't want another ea IV" Pt verbalized the understanding of need for second IV to infuse blood products. Pt refused IV. Denies pain at this time. Awaiting on blood for transfusion. 20:23 Reassessment: Patient and/or family updated on plan of care and expected duration. Pain ea level reassessed. Pt alert and oriented x 3. Pt agreed to second IV start, tolerated well. 21:20 Reassessment: Patient and/or family updated on plan of care and expected duration. Pain ea level reassessed. 21:53 Reassessment: Pt awaiting on blood transfusion to complete. ea 22:53 Reassessment: Patient and/or family updated on plan of care and expected duration. Pain ea level reassessed. Pt resting with eyes closed, respirations even and unlabored. Chest expansions even and symmetrical. Pt second unit of blood products infusing. 06/08 01:14 Reassessment: Patient and/or family updated on plan of care and expected duration. Pain ea level reassessed. Patient is alert, oriented x 3, equal unlabored respirations, skin warm/dry/pink. Discharge instruction given to patient, verbalized the understanding o instruction .Pt left ED via wheelchair per family Patient states feeling better. Vital Signs: 06/07 16:45 BP 130 / 80; Pulse 77; Resp 15; Temp 98.3(O); Pulse Ox 100% on R/A; tw2 16:45 Weight 52.16 kg (R); tw2 17:38 BP 133 / 72; Pulse 71; Resp 16; Pulse Ox 100% on R/A; tw2 18:30 BP 127 / 75; Pulse 72; Resp 17; Pulse Ox 100% on R/A; tw2 19:28 BP 124 / 68; Pulse 64; Resp 16; Pulse Ox 100% ; ea 21:54 BP 133 / 87; Pulse 64; Resp 18; Temp 98.9; Pulse Ox 100% on R/A; ea 22:35 BP 129 / 64; Pulse 76; Resp 18; Pulse Ox 100% on R/A; ea 06/08 00:00 BP 160 / 86; Pulse 77; Resp 18; Pulse Ox 100% ; ea 01:09 BP 140 / 84; Pulse 73; Resp 19; Pulse Ox 100% on R/A; ea ED Course: 06/07 16:29 Patient arrived in ED. ag5 16:29 Blayne Centeno MD is Private Physician. ag5 16:38 Bianca Sherman MD is Attending Physician. ma2 16:40 Arm band placed on. tw2 16:45 Patient has correct armband on for positive identification. Placed in gown. Bed in low jl7 position. Call light in reach. Side rails up X2. hide and skin processing worker on. Pulse ox on. NIBP on. Warm blanket given. 16:45 Initial lab(s) drawn, by nv, sent to lab. Inserted saline lock: 22 gauge in left jl7 forearm, using aseptic technique. Blood collected. 16:49 Triage completed. aa5 16:56 Margaux Iraheta RN is Primary Nurse. 7 18:06 Consent for blood and/or blood product transfusion explained by staff, explained by jl7 physician, signed by patient. 18:07 T\\T\\S collected, blood band applied to patient. 7 19:27 Attending Physician role handed off by Bianca Sherman MD [facility] 19:27 Maykel Burton MD is Attending Physician. [facility] 06/08 01:13 No provider procedures requiring assistance completed. IV discontinued, intact, ea bleeding controlled, No redness/swelling at site. Pressure dressing applied. Administered Medications: 06/07 19:10 Drug: Potassium Chloride 10 mEq Route: IV; Rate: calculated rate; Site: right forearm; ea 19:10 Not Given (Duplicate Order): Potassium Chloride 40 mEq PO once tw2 19:10 Not Given (Duplicate Order): Potassium Chloride 40 mEq PO once tw2 19:11 Drug: Calcium Gluconate 1 grams Route: IVPB; Infused Over: 60 mins; Site: right forearm;ea 20:19 Follow up: Response: No adverse reaction; IV Status: Completed infusion ea 20:20 Follow up: Response: No adverse reaction; IV Status: Completed infusion ea 20:33 Drug: Potassium Chloride 20 mEq Route: PO; ea 21:25 Follow up: Response: No adverse reaction ea Outcome: 21:33 Discharge ordered by . [facility] 06/08 01:13 Discharged to home via wheelchair, with family. ea Condition: stable Discharge instructions given to patient, Instructed on discharge instructions, follow up and referral plans. Demonstrated understanding of instructions, follow-up care. 01:14 Patient left the ED. ea Signatures: Maykel Burton MD MD cha Calderon, Audri, RN RN aa5 Desiree Franco RN RN 2 Margaux Iraheta RN RN jl7 Madison Abdullahi RN RN ea Bianca Sherman MD MD ma2 Shimon, Elsa ag5
--- NOTE | 2020-06-08 07:12 | EKG ---
Test Date: 2020-06-07 Test Time: 20:16:53 Doctor Naturopathic: ELIJAH MEASUREMENT RESULTS: Intervals: Rate: 72 NV: 134 QRSD: 86 QT: 356 QTc: 389 [place]: P: 51 NV: 134 QRS: 66 T: 226 INTERPRETIVE STATEMENTS: Sinus rhythm with premature supraventricular complexes ST & T wave abnormality, consider inferolateral ischemia Abnormal ECG Compared to ECG 07/05/2019 20:47:55 Atrial premature complex(es) now present ST (T wave) deviation still present Possible ischemia still present Electronically Signed On 06-08-20 07:09:02 ENVIRONMENT COORDINATOR by Reg Tafoya
== END 2020-06-08 01:14 | disposition home or self-care (01) ==
LOC: ER 16:27
PROC: 30233N1 Transfusion of Nonautologous Red Blood Cells into Peripheral Vein, Percutaneous Approach (ICD-10-PCS; principal; 2020-06-08)
DX: C44.90 Unspecified malignant neoplasm of skin, unspecified (principal); D63.0 Anemia in neoplastic disease; N19 Unspecified kidney failure; D63.1 Anemia in chronic kidney disease; Z94.2 Lung transplant status
CPT/HCPCS: 96365; 93005; 85025; 36415; 86900; 86850; 86901; 80053; 96375; 99284; 36430; J3480; J0610; P9016 ×2

== ENCOUNTER 2020-11-21 04:30 | Emergency (ER) | payer OTHER ==
--- OUTSIDE RECORDS SUMMARY | 2020-11-21 04:54 | XMS REPORT | Continuity of Care Document ---
:1955 Author Organization [facility] t Address [address] [place] [address] Eric. [address] [place] [address] Care Team Providers Name Role Phone Ramiro Centeno MD Primary Care Physician Daniel HERCULES Attending Clinician Unavailable Bree Barrett Attending Clinician Unavailable Víctor ADVERTISING SUPERVISOR, T Attending Clinician Unavailable Edmund BARLOW, Kasia Attending Clinician Bryan Hernandez MD Attending Clinician Duarte ARGUETA, Yobany Attending Clinician BRYAN HERNANDEZ Attending Clinician Unavailable Ceasar HERCULES, L Attending Clinician Unavailable Gato HERCULES, M Attending Clinician Unavailable Nestor Myers MD Attending Clinician Paty ARGUETA, Bree Attending Clinician Charlie Gross MD Attending Clinician Michelle Mccray NP Attending Clinician Ashley Chaney NP Attending Clinician Robin ARGUETA Attending Clinician Giovanni ARGUETA, Patricia Attending Clinician Ben ARGUETA Attending Clinician Michael HERCULES, C Attending Clinician Unavailable ROBIN Attending Clinician Unavailable Denis RUIZ Attending Clinician Unavailable Jessica Attending Clinician Unavailable Ryan ARGUETA, Joao Attending Clinician Nestor Myers MD Attending Clinician Rody Askew RN Attending Clinician Unavailable Isauro Arias MD Attending Clinician ISAURO ARIAS Attending Clinician Unavailable Cole ARGUETA, Gordon Attending Clinician Que Santos MD Attending Clinician Luz Goel MA Attending Clinician Unavailable Minoo ARGUETA, Sweta Attending Clinician Chandana Attending Clinician Unavailable Shahid ARGUETA Attending Clinician Catrachito Muniz MD Attending Clinician SHAHID Attending Clinician Unavailable Fernandez Hicks CRNA Attending Clinician Philip Attending Clinician Unavailable Anali Andrews DO Attending Clinician Fidencio Jain MD Attending Clinician ANALI ANDREWS Attending Clinician Unavailable ASHLEY CHANEY Attending Clinician Unavailable Robert Carlton MD Attending Clinician Robert CARLTON Attending Clinician Unavailable Maritza Bonds NP Attending Clinician Larry Attending Clinician Unavailable Mitchel Wallis RN Attending Clinician Unavailable Jose Valentin RN Attending Clinician Unavailable Rody Macias Attending Clinician Unavailable Michael HERCULES Attending Clinician Unavailable Dennys HERCULES Attending Clinician Unavailable Tahir MCDOWELL Attending Clinician Unavailable Cosme ARGUETA Attending Clinician COSME Attending Clinician Unavailable Giovanni Attending Clinician Unavailable Ivette ARGUETA Attending Clinician Fabiana HERCULES Attending Clinician Unavailable Garrett Attending Clinician Unavailable Zahra Green MD Attending Clinician Jose Spicer Attending Clinician Unavailable Severo See MD Attending Clinician Michael Attending Clinician Unavailable Ira Quick NP Attending Clinician Severo SEE Attending Clinician Unavailable Rudi HERCULES Attending Clinician Unavailable De La Paz ADVERTISING SUPERVISOR, L Attending Clinician Unavailable Delgado Del Toro MD Attending Clinician ZAHRA GREEN Attending Clinician Unavailable NESTOR MYERS Attending Clinician Unavailable SWETA HENNESSY Attending Clinician Unavailable Ez Eastman MD Attending Clinician Lorraine Smith Attending Clinician Zenaida Mckinney PA-C Attending Clinician Darrell HERCULES Attending Clinician Unavailable Jas HERCULES Attending Clinician Unavailable Odilia Wolfe MA Attending Clinician Unavailable Cristian ARGUETA V. Attending Clinician Sathish Lagos Attending Clinician Yariel ARGUETA Attending Clinician John BAKER Attending Clinician Unavailable SARITA LYON Attending Clinician Unavailable FIDENCIO JAIN Attending Clinician Unavailable IGGY URIAS Attending Clinician Unavailable ZAIDA LOVETT Attending Clinician Unavailable YARIEL Attending Clinician Unavailable FAITH MARTINEZ Attending Clinician Unavailable CLEMENT HERRERA Attending Clinician Unavailable Ez EASTMAN Attending Clinician Unavailable MYLES SERRANO Attending Clinician Unavailable Myles Serrano MD Attending Clinician KEN RAZA Attending Clinician Unavailable NOHEMY FERRER Attending Clinician Unavailable BRYAN HERNANDEZ Admitting Clinician Unavailable PATRICIA MOLINA Admitting Clinician Unavailable BEN Admitting Clinician Unavailable CATRACHITO MUNIZ Admitting Clinician Unavailable FIDENCIO JAIN Admitting Clinician Unavailable ASHLEY CHANEY Admitting Clinician Unavailable Greg CORONEL Admitting Clinician Unavailable Severo SEE Admitting Clinician Unavailable ESME Admitting Clinician Unavailable Ez EASTMAN Admitting Clinician Unavailable MYLES SERRANO Admitting Clinician Unavailable IGGY URIAS Admitting Clinician Unavailable YARIEL Admitting Clinician Unavailable Payers Payer Name Policy Type Policy Number Effective Date Expiration Date S luis fernando [facility] [id number] 2020 2021 PLAN SSI 00:00:00 00:00:00 MEDICAID - [id number] [address] [facility] MEDICAID MGD 00:00:00 - [facility] [id number] icaid Contracted UNITED [id number] 2020 2021 [facility] 00:00:00 23:59:59 Health [facility] PLAN [id number]- [phone].[address]. [id number] [place] [address] Problems Condition Condition Condition Status Onset Resolution Last Treating Co mments Source Name Details Category Date Date Treatment Clinician Date Anemia Anemia Disease Active [facility] 00:[facility]: Medical 00 [place] Acute Acute Disease Active [facility] encephalop encephalop 3-28 [facility] - athy athy 00:00: Medical 00 [place] Acute Acute Disease Active [facility] metabolic metabolic 2-01 [facility] - encephalop encephalop 00:00: Me dical athy athy 00 [place] Acute Acute Disease Active [facility] kidney kidney 2-01 [facility] - injury injury 00:00: Medical superimpos superimpos 00 Ce nter ed on CKD ed on CKD Altered Altered Disease Active [facility] mental mental 1-03 [facility] - status, status, 00:00: Medical unspecifie unspecifie 00 Ce nter d altered d altered mental mental status status type type Pancytopen Pancytopen Disease Active 2019-[address] ia ia 2-24 [facility] - 00:00: Medical 00 [place] Stage 3b Stage 3b Disease Active 2019-07 [facility] chronic [facility] - kidney kidney 00:00: Medical disease disease 00 Center SBP SBP Disease Active 2019-[address] [facility] (spontaneo (spontaneo 2-21 [facility] - us us 00:00: Medical bacterial bacterial 00 Cent er peritoniti peritoniti s) s) Hepatic Hepatic Disease Active 2019-[address] [facility] encephalop encephalop 2-18 [facility] - athy athy 00:00: Medical 00 Center 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 He will continue follow up with nephrolog y. Impaired Impaired Disease Active 2019-[facility] Plan: Medical 00 He will Center benefit from home physical therapy. He states that he has issues with his ambulatio n while ambulatin g at home. Drug use Drug use Disease Active 2019-07 [facility] t & Plan: Medical He states Center that he consumes "marijuan a gummies" for anxiety. He was instructe d to abstain from consuming marijuana containin g treats. Pre-transp Pre-transp Disease Active 2019-07 [facility] lant lant 0-07 [facility] - evaluation evaluation 00:00: t & Plan: Medical for liver for liver [address] transplant transplant be considere d a high risk candidate due to his social history s/p lung transplan t. He will require routine imaging/t esting and official review at B for official candidacy . Volume Volume Disease Active [facility] overload overload 8-25 [facility] - 00:[facility]: Medical Center NOHEMI (acute NOHEMI (acute Disease Active [facility] kidney kidney 8-25 [facility] - injury) injury) 00:00: Medical [place] Dyspnea Dyspnea Disease Active [facility] and and 6-11 [facility] - respirator respirator 00:00: Me dical y y 00 Center abnormalit abnormalit y y Portal Portal Disease Active [facility] hypertensi hypertensi 5-07 [facility] - [...] ulcer 1- [facility] - 00:00: Medical 00 [place] Sarcopenia Sarcopenia Disease Active 2018-[address] 1- [facility] - 00:00: Medical 00 Center Hypotensio Hypotensio Disease Active 2018- [facility] n due to n due to 07-07 [facility] - drugs drugs 00:00: Medical 00 [...] Chronic Disease Active [facility] diarrhea diarrhea 6 [facility] - 00:00: Medical 00 Center Cancer Cancer Disease Active [facility] screening screening 6- [facility] - 00:00: Medical 00 [place] Acute on Acute on Disease Active [facility] [...] acidosis 6-30 [facility] - 00:00: Medical 00 [place] Lactic Lactic Disease Active [facility] acid [...] Disease Active [facility] liver liver 6-23 [facility] - enzymes enzymes 00:00: Medical 00 Center Ascites Ascites Disease Active [facility] 6[facility]23 [facility] - 00:00: Medical 00 Center Pneumonia Pneumonia Disease Active [facility] 5[facility]06 [facility] - 00:00: Medical 00 [place] Diarrhea Diarrhea Disease Active [facility] 2[facility]26 [facility] - 00:00: Medical 00 [place] Abdominal Abdominal Disease Active Overview: [facility] pain pain 8-30 [facility] - 00:00: Medical 00 [place] Gastropare Gastropare Disease Active [facility] sis sis 8-30 [facility] - 00:00: Medical 00 [place] Immunosupp Immunosupp Disease Active [facility] ression ression 830 [facility] - 00:00: Medical 00 [place] 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 He will continue follow up with pulmonary . Bronchiect Bronchiect Disease Active 2011-[address] asis asis 1- [facility] - 00:00: Medical 00 [place] GERD GERD Disease Active 2011-[address] [facility] (gastroeso (gastroeso - [facility] - phageal phageal 00:00: Medical reflux reflux 00 [place] disease) disease) CVID CVID Disease Active 2011-[address] [facility] (common (common - [facility] - variable variable 00:00: Medica l immunodefi immunodefi 00 Ce nter ciency) ciency) COPD COPD Disease Active 2011-[address] [facility] (chronic (chronic 1-07 [facility] - obstructiv obstructiv 00:00: Md dical e e 00 [place] pulmonary pulmonary disease) disease) Acute Acute Disease Active [facility] respirator respirator [facility] - y distress y distress [facility] Cardiac Disease [facility] arrest arrest [facility] Septic Septic Disease Resolve 2020-03-12 2020-03-[address] [facility] shock shock d 6 00:00:00 19:13:43 [facility] - 00:00: Medical 00 [place] Severe Severe Disease Resolve 2020-03-12 2020-03-[address] [facility] sepsis sepsis d 6 00:00:00 19:13:40 [facility] - 00:00: Medical 00 [place] Nausea & Nausea & Disease Resolve 2013-072020-03-12 2020-03-[address] [facility] vomiting vomiting d 0-28 00:00:00 19:13:05 [facility] - 00:00: Medical Center Allergies, Adverse Reactions, Alerts This patient has no known allergies or adverse reactions. Family History Family Member Diagnosis Comments Start Date Stop Date Source Natural brother Hypertension [facility] Natural father Cancer [facility] Natural mother Cancer [facility] Paternal aunt Cancer [facility] Social History Social Habit Start Date Stop Date Quantity Comments Source Sex Assigned At [facility] Exposure to Not sure [facility] - SARS-CoV-2 (event) [facility] Cigarettes smoked 2020-09-16 2020-09-16 [facility] - current (pack per 00:00:00 00:00:00 [facility] day) - Reported Cigarette 2020-09-16 2020-09-16 [facility] - pack-years 00:00:00 00:00:00 [facility] Tobacco use and 2020-09-16 2020-09-16 Never used [facility] - exposure 00:00:00 00:00:00 [facility] Alcohol intake 2020-09-16 2020-09-16 Current [facility] - 00:00:00 00:00:00 non-drinker of Medical nter alcohol (finding) History of tobacco 2003-01-17 [facility] - use 00:00:00 [facility] Smoking Status Start Date Stop Date Source Former smoker 2020-09-16 00:00:00 2020-09-16 00:00:00 [facility] Medications Ordered Filled Start Stop Current Ordering Indication Dosage Frequency Signature Comments Components Source Medication Medication Date Date Medication? Clinician (SIG) Name Name tacrolimus 2021- Yes .5mg Take [address] [facility] (PROGRAF) 5-14 05-14 capsule [facility] - 0.5 MG 00:00: 23:59 (0.5 mg Medical capsule 00 :00 total) by [place] mouth 3 (three) times a week at bedtime SAT/SAT/ I. multivitami Yes 1{capsu QD Take [address] n capsule 5-13 le} capsule by Lev s - 18:28: mouth Medical 04 daily. [place] folic acid Yes 1mg QD Take [address] (FOLVITE) 1 5-13 by mouth [facility] - MG tablet 18:28: daily. Medica l 04 Center lidocaine 2020- No Neoplasm of 6mL [place] 2%-epinephr 4-14 04-14 uncertain He alth ine 16:00: 16:24 behavior of 1:100,000 2 00 :00 skin %-1:100,000 injection 6 mL predniSONE Yes S/P lung 4mg QD Take [address] (DELTASONE) 4-13 transplant tablets (4 [facility] - 1 MG tablet 00:00: (HCC) mg total) Medical 00 by mouth Center daily. predniSONE 2020- No S/P lung 4mg QD Take [address] [facility] (DELTASONE) 4-13 04-13 transplant tablets (4 [facility] - 1 MG tablet 00:00: 00:00 (HCC) mg total) Medical 00 :00 by mouth Center daily. hydrOXYzine 2020- No Itching 20mg Take [address] [facility] (ATARAX) 10 4-07 05-07 tablets [facility] - MG tablet 00:00: 23:59 (20 mg Medic al 00 :00 total) by Center mouth every night as needed for Itching for up to 30 days Take one tablet at night as needed for itching.. predniSONE 2020- No S/P lung 4mg QD Take [address] [facility] (DELTASONE) 3-29 04-13 transplant tablets (4 [facility] - 1 MG tablet 00:00: 00:00 (HCC) mg total) Medical 00 :00 by mouth Center daily. hydrOXYzine 2020- No Itching 10mg Take [address] [facility] (ATARAX) 10 3-19 04-07 tablet (10 L ukes - MG tablet 00:00: 00:00 mg total) Me dical 00 :00 by mouth Center every night as needed for Itching for up to 30 days Take one tablet at night as needed for itching.. potassium Yes [address] [facility] chloride SA 2-01 daily, and [facility] - (K-DUR,KLOR 00:00: take an Med ical -CON) 20 00 additional Cente r MEQ tablet tablet if you are using Lasix that day as well. No more refills through my office. lactulose 2021- No Other 20g Q.[id number] Take [address] [facility] (Kristalose 1-14 -24 cirrhosis [id number] packet (20 [facility] - ) 20 gram 00:00: 23:59 of liver 3D g total) Medical packet 00 :00 (HCC) by mouth 3 Center (three) times daily. furosemide 2019-[address] [facility] (LASIX) 40 2-24 taking 1 [facility] - MG tablet 00:00: tablet Medica l 00 daily as Center needed for fluid retention. tacrolimus 2019-07- No Every [facility] (PROGRAF) 08-24-Saturday [facility] - 0.5 MG 00:00: 00:00 Saturday Medic al capsule 00 :00 Saturday in Center the evening. You have this at home already.. polyethylen 2019-07- No Take [address] [facility] e glycol 08-24 (1 dose) [facility] - (GLYCOLAX) 00:00: 00:00 twice a Med ical 17 gram 00 :00 day. May Center packet decrease frequency if you have too many BMs, may increase to 3 times a day if still having constipati on. It is over-the-c ounter. potassium 2019-07- No Continue [facility] chloride -24 08- taking 1 [facility] - (KLOR-CON) 00:00: 00:00 tablet Medi isis 20 mEq 00 :00 daily if Center packet you are taking Lasix (furosemid e). hydrOXYzine 2019-07- No Other 25mg Take [address] (ATARAX) 25 18 -17 cirrhosis tablet (25 [facility] - MG tablet 00:00: 23:59 of liver mg total) Medical 00 :00 (HCC) by mouth Center daily as needed for Itching for up to 30 days. levoFLOXaci 2019-07- No Take one [facility] n 2-18 -14 dose [facility] - (LEVAQUIN) 00:00: 00:00 Saturday Dec Medical 500 MG 00 :00 25 in the Center tablet evening.. potassium 2019-07- No 40meq QD Take [address] [facility] chloride 2-18 12-24 mEq by [facility] - (KLOR-CON) 00:00: 00:00 mouth Medic al 20 mEq 00 :00 daily for Center packet 33 days. potassium 2019-07- No [facility] chloride 2-10 -18 [facility] - (KLOR-CON) 00:00: 00:00 Medica l 20 mEq 00 :00 Center packet lipase-prot 2019-07 Yes Take [address] [facility] ease-amylas 1-16 tabs po [facility] - e (CREON) 00:00: with Medical 36,000-114, 00 meals. Center 000- 180,000 unit CpDR capsule gabapentin 2019-07- No Itching 300mg Take [address] [facility] (NEURONTIN) 07-05 capsules [facility] - 100 MG 00:00: 00:00 (300 mg Medical capsule 00 :00 total) by Center mouth every night as needed. furosemide 2019-07- No 40mg Take [address] [facility] (LASIX) 40 07-02 by mouth. [facility] - MG tablet 00:00: 00:00 Medical 00 :00 [place] calcitrioL 2019-07- No .25ug QD Take [address] [facility] (ROCALTROL) 07-01 capsule [facility] - 0.25 MCG 00:00: 23:59 (0.25 mcg Med ical capsule 00 :00 total) by Center mouth daily For kidney disease. lactulose 2019-07- No 20g Q.[id number] Take [address] [facility] (CHRONULAC) 07-01 [id number] mLs (20 g [facility] - 20 gram/30 00:00: 00:00 3D total) by adolph mL solution 00 :00 mouth 3 Cente r (three) times daily Take up to three times daily for a goal of 2-3 bowel movement per day. sevelamer 2019-07- No 800mg Take [address] [facility] (RENVELA) 07-01 tablet [facility] - 800 mg 00:00: 00:00 (800 mg Medical tablet 00 :00 total) by Center mouth 3 (three) times daily with meals. sodium 2019-07- No 1300mg Q.[id number] Take [address] [facility] bicarbonate 07-01 [id number] tablets [facility] - 650 MG 00:00: 00:00 3D (1,300 mg Medic al tablet 00 :00 total) by Center mouth 3 (three) times daily. ondansetron 2019-07 Yes 4mg Take [address] (ZOFRAN) 4 0-08 by mouth 3 [facility] - MG tablet 00:00: (three) Medic al 00 times Center daily as needed . AZITHROmyci 2019- Yes 250mg Q.[id number] Take [address] [facility] n 03-30 [id number] tablet [facility] - (ZITHROMAX) 00:00: 3W (250 [...] daily as needed. AZITHROmyci 2019- No 250mg Q.[id number] Take [address] [facility] n 03-28 [id number] tablet [facility] - (ZITHROMAX) 00:00: 00:00 3W (250 mg Me dical 250 MG 00 :00 total) by Center tablet mouth 3 (three) times a week I Take by mouth as directed.. ergocalcife 2020- No [id number] Q7D Take [address] rol 03-03 capsule [facility] - (ERGOCALCIF 00:00: 23:59 (50,000 Me dical FLORENTIN) 1,250 00 :00 Units Center mcg (50,000 total) by unit) mouth once capsule a week Every . calcitrioL 2019- No .25ug QD Take [address] [facility] (ROCALTROL) 02-26 capsule [facility] - 0.25 MCG 00:00: 00:00 (0.25 mcg Med ical capsule 00 :00 total) by Center mouth daily For kidney disease. tacrolimus 2020- No .5mg QD Take [address] [facility] (PROGRAF) 02-25 capsule [facility] - 0.5 MG 00:00: 23:59 (0.5 mg Medical capsule 00 :00 total) by Center mouth daily Starting 02/26. gabapentin No Itching 100mg QD Take [address] [facility] (NEURONTIN) 02-25 capsule [facility] - 100 MG 00:00: 00:00 (100 mg Medical capsule 00 :00 total) by Center mouth nightly. lactulose 2019- No 20g Q.[id number] Take [address] [facility] (CHRONULAC) 02-25 [id number] mLs (20 g [facility] - 20 gram/30 00:00: 00:00 3D total) by edical mL solution 00 :00 mouth 3 Cente r (three) times daily Take up to three times daily for a goal of 2-3 bowel movement per day. furosemide 2019- No 40mg Q.[id number] Take [address] [facility] (LASIX) 40 02-25 [id number] tablet (40 [facility] - MG tablet 00:00: [...] Medical tablet 00 :00 taking. Center sodium 2019- No 30g Take [address] [facility] polystyrene 02-04 mLs (30 g [facility] - (KAYEXALATE 00:00: 23:59 total) by Medical ) 15 00 :00 mouth once Center gram/60 mL for 1 suspension dose. sodium 2019-2019- No Hyperkalemi 15g Take [address] [address] polystyrene 7- 07-30 a mLs (15 g [facility] - (KAYEXALATE 00:00: 23:59 total) by Medical ) 15 00 :00 mouth once Center gram/60 mL for 1 suspension dose. diphenhydrA 2019-2019- No 25mg [facility] MINE 7 07-28 [facility] - (BENADRYL) 10:15: 10:10 Medica l injection 00 :00 Center 25 mg furosemide 2019- 2020- No Other 20mg QD Take [address] [facility] (LASIX) 20 12-10- ascites tablet (20 [facility] - MG tablet 00:00: 00:00 mg total) Me dical 00 :00 by mouth Center daily for 180 days. tacrolimus 2019-2019- No .5mg Take [address] [facility] (PROGRAF) 12-10 capsule [facility] - 0.5 MG 00:00: 00:00 (0.5 mg Medical capsule 00 :00 total) by Center mouth Daily (0600) On , , Sat, Sat. spironolact 2019- 2020- No Other 50mg QD Take [address] one 12-10- ascites tablet (50 [facility] - (ALDACTONE) 00:00: [...] total) by Center mouth once at bedtime. furosemide 2019-0 2020- No Other 20mg QD Take [address] [facility] (LASIX) 20 3-19 06-12 ascites tablet (20 [facility] - MG tablet 00:00: 00:00 mg total) Me dical 00 :00 by mouth Center daily for 180 days. spironolact 2020-0 2020- No Other 50mg QD Take [address] [facility] one 09-16 06-12 ascites tablet (50 [facility] - (ALDACTONE) 00:00: 00:00 mg total) Medical 50 MG 00 :00 by mouth Center tablet daily for 180 days. predniSONE No S/P lung 4mg QD Take [address] [facility] (DELTASONE) 3- 03-29 transplant tablets (4 [facility] - 1 MG tablet 00:00: 00:00 (HCC) mg total) Medical 00 :00 by mouth Center daily. rifAXIMin 2019- Yes 550mg Q.5D Take 1 [facility] 550 mg Tab 3-03 tablet [facility] - 00:00: (550 mg Medical 00 total) by Center mouth 2 (two) times daily. tacrolimus 2019- No .5mg Take [address] [facility] (PROGRAF) 08-27 capsule [facility] - 0.5 MG 00:00: 00:00 (0.5 mg Medical capsule 00 :00 total) by Center mouth Daily (0600). tacrolimus 2019- No .5mg Q.[id number] Take [address] [facility] (PROGRAF) 08-26 [id number] capsule [facility] - 0.5 MG 00:00: 00:00 3W (0.5 mg Medical capsule 00 :00 total) by Center mouth 3 (three) times a week SAT/SAT/ I. omeprazole 2019-0 Yes 40mg Q.5D Take 2 [facility] (PRILOSEC) 1-30 capsules [facility] - 20 MG 00:00: (40 mg Medical capsule 00 total) by Center mouth 2 (two) times daily. simethicone No 80mg Take [address] [facility] (MYLICON) 07-0819 tablet (80 [place] [facility] - 80 MG 00:00: 00:00 mg total) Medica l chewable 00 :00 by mouth Center tablet every 6 (six) hours as needed (flatulenc e or gas). fludrocorti 2019- No Hyperkalemi .1mg QD Take [address] [facility] sone 07-08 08-07 a tablet [facility] - (FLORINEF) 00:00: 00:00 (0.1 mg Med ical 0.1 mg 00 :00 total) by Center tablet mouth daily. lipase-prot 2018-07 2020- No Take [address] [facility] ease-amylas 27 11-16 tabs po [facility] - e (CREON) 00:00: 00:00 with Medical 36,000-114, 00 :00 meals. Center 000- 180,000 unit CpDR capsule midodrine 2018-07 2020- No 5mg Q.[id number] Take [address] [facility] (PROAMATINE 07-06 08-07 [id number] tablet (5 [facility] - ) 5 MG 00:00: 00:00 3D mg total) Medic al tablet 00 :00 by mouth 3 Center (three) times daily. azithromyci 2019- No Lung 250mg Q.[id number] Take [address] [facility] n 14 08-07 transplante [id number] tablet [facility] - (ZITHROMAX) 00:00: 00:00 d (HCC) 3W (250 mg Medical 250 MG 00 :00 total) by Center tablet mouth 3 (three) times a week EVERY SATURDAY, SATURDAY, AND SATURDAY. Immunizations Ordered Immunization Filled Immunization Date Status Commen ts Source Name Name INFLUENZA TRIVALENT 2019-04-[facility] IM 00:00:00 [facility] Pneumococcal Conjugate 2018-05-[address] [facility] - (Prevnar) 13-Valent 00:00:00 Medic [facility] Influenza High Dose 2018-05-29 [facility] Preservative Free IM 00:00:00 [facility] Influenza High Dose 2016-06-05 [facility] - Preservative Free IM 00:00:00 [facility] Influenza High Dose 2015-05-24 [facility] - Preservative Free 00:00:00 [facility] [id number] Influenza, High Dose 2014-04-[address] [facility] - Seasonal 00:00:00 [facility] Hepatitis B 2012-08-[address] [facility] - 00:00:00 [facility] Hepatitis B 2012-06-[address] [facility] - 00:00:00 [facility] Influenza TIV (IM) 2012-03-[address] [facility] - 00:00:00 [facility] Pneumococcal 2008-07-[address] [facility] - Polysaccharide 00:00:00 Medical Ce nter (Pneumovax) Vital Signs Vital Name Observation Time Observation Value Comments Source Systolic blood 2020-11-10 11:00:00 145 mm[Hg] [facility] pressure [facility] Diastolic blood 2020-11-10 11:00:00 65 mm[Hg] [facility] Heart rate 2020-11-10 11:00:00 70 /min [facility] Body temperature 2020-11-10 11:00:00 37 Saray [facility] Respiratory rate 2020-11-10 11:00:00 18 /min [facility] Oxygen saturation in 2020-11-10 11:00:00 98 /min [facility] Arterial blood by Medical Ce nter Pulse oximetry Body height 2020-11-09 20:00:00 165.1 cm [facility] Body weight 2020-11-09 20:00:00 54.477 kg [facility] BMI 2020-11-09 20:00:00 19.99 kg/m2 [facility] Procedures Procedure Date / Time Performing Clinician Source Performed PREPARE LEUKO-REDUCED RBC 2020-11-10 23:55:00 Mahdi Evelina Johnson [facility] CBC W/PLT COUNT & AUTO 2020-11-10 04:19:00 [facility]/INR 2020-11-10 04:19:00 [facility] TACROLIMUS LEVEL 2020-11-10 04:19:00 Marin [facility] COMPREHENSIVE METABOLIC 2020-11-10 04:19:00 [facility] PANEL [facility] MAGNESIUM 2020-11-10 04:19:00 [facility] PHOSPHORUS 2020-11-10 04:19:00 [facility]SF[facility] LEUKO-REDUCED RED 2020-11-10 01:18:49 Mahdi Evelina Johnson [facility] BLOOD CELLS [facility] SARS-COV2/RT-PCR ([facility] & 2020-11-09 20:53:00 Alex, Alandi Said CH I [facility] - REF LABS) [facility] CBC (HEMOGRAM ONLY) 2020-11-09 20:50:00 Maine Hernandez [facility] COMPREHENSIVE METABOLIC 2020-11-09 20:50:[address] [facility] TYPE AND SCREEN, AUTOMATED 2020-11-09 20:50:00 Maine Hernandezun ernesto [facility] TISSUE EXAM 2020-10-12 16:39:00 Salima Sung h PREPARE LEUKO-REDUCED RBC 2020-09-26 23:54:00 Torey Chapman [facility] CBC W/PLT COUNT & AUTO 2020-09-26 05:45:00 Torey Chapman [facility] BASIC METABOLIC PANEL (7) 2020-09-26 05:45:00 Torey Chapman [facility] MAGNESIUM 2020-09-26 05:45:00 Torey Chapman [facility] TACROLIMUS LEVEL 2020-09-26 05:45:00 Christiano Holloway [facility] TACROLIMUS LEVEL 2020-09-25 10:34:00 Torey Chapman [facility] MAGNESIUM 2020-09-25 10:34:00 Torey Chapman [facility] XR CHEST 1 VIEW 2020-09-25 09:35:[address] [facility] PORTABLE/BEDSIDE [facility] TRANSFUSE LEUKO-REDUCED RED 2020-09-25 08:52:16 Torey Chapman [facility] BLOOD [facility] URINALYSIS W/ REFLEX URINE 2020-09-25 04:05:00 Torey Chapman [facility] TYPE AND SCREEN, AUTOMATED 2020-09-25 03:54:00 Torey Chapman [facility] CBC W/PLT COUNT & AUTO 2020-09-25 02:51:00 Robin, [facility] BASIC METABOLIC PANEL (7) 2020-09-25 02:51:00 Robin, [facility] HEPATIC FUNCTION PANEL 2020-09-25 02:51:00 Robin, [facility] AMMONIA 2020-09-25 02:51:00 Robin, [facility] PT/APTT 2020-09-25 02:51:00 Robin, [facility] SARS-COV2/RT-PCR ([facility] & 2020-09-25 02:51:00 Robin, [facility] LABS) [facility] BRAIN WITHOUT IV 2020-09-25 02:35:00 Robin, [facility] BASIC METABOLIC PANEL (7) 2020-08-01 05:22:00 Ben [facility] MAGNESIUM 2020-08-01 05:22:00 [facility] 2020-08-01 05:22:00 Givetrista [facility] CBC W/PLT COUNT & AUTO 2020-08-01 05:21:00 Ben [facility] PT/APTT 2020-08-01 05:21:00 Ben [facility] PREPARE LEUKO-REDUCED RBC 2020-07-31 23:54:00 Ben [facility] CMV PCR, QUANTITATIVE 2020-07-31 05:37:00 Chandra Grey [facility] CBC W/PLT COUNT & AUTO 2020-07-31 05:37:00 [facility]IC METABOLIC PANEL (7) 2020-07-31 05:37:00 Ben [facility] MAGNESIUM 2020-07-31 05:37:00 [facility] HEPATIC FUNCTION PANEL 2020-07-31 05:37:00 [facility] PT/APTT 2020-07-31 05:37:00 Giveon, [facility] TRANSFUSE LEUKO-REDUCED RED 2020-07-31 00:23:24 [facility]-REDUCED RED 2020-07-30 19:05:04 Ben [facility] HEMOGLOBIN AND HEMATOCRIT 2020-07-30 12:30:00 Luis Contreras [facility] IRON, TIBC, % SAT. (WITHOUT 2020-07-30 12:30:00 Ben [facility] FERRITIN) [facility] FERRITIN 2020-07-30 12:30:00 Ben [facility] VITAMIN B12 AND FOLATE 2020-07-30 12:30:00 Ben [facility] TSH/FREE T4 IF INDICATED 2020-07-30 12:30:00 Ben [facility] TYPE AND SCREEN, AUTOMATED 2020-07-30 12:30:00 Luis Contreras [facility] CBC W/PLT COUNT & AUTO 2020-07-30 08:26:00 [facility] BASIC METABOLIC PANEL (7) 2020-07-30 05:36:00 Luis Contreras [facility] MAGNESIUM 2020-07-30 05:36:00 Ben [facility] HEPATIC FUNCTION PANEL 2020-07-30 05:36:00 [facility] PT/APTT 2020-07-30 05:36:00 Ben [facility] US ABDOMEN LIMITED 2020-07-29 15:19:00 [facility] SODIUM, RANDOM URINE 2020-07-29 13:08:00 [facility] POTASSIUM, RANDOM URINE 2020-07-29 13:08:00 [facility] CREATININE, RANDOM URINE 2020-07-29 13:08:00 [facility] UREA NITROGEN, RANDOM URINE 2020-07-29 13:08:[address] [facility] CHLORIDE, RANDOM URINE 2020-07-29 13:08:00 Zach Abel [facility] OSMOLALITY, URINE 2020-07-29 13:08:[address] [facility] PROTEIN, RANDOM URINE 2020-07-29 13:08:00 Zach Abel I [facility] URINALYSIS W/ MICROSCOPIC 2020-07-29 12:32:00 Gabriel Arias [facility] LACTIC ACID, VENOUS 2020-07-29 12:30:00 [facility] BLOOD CULTURE 2020-07-29 12:30:00 [facility] SARS-COV2/INFLUENZA/RSV 2020-07-29 12:30:00 Juana [facility] - RT-PCR [facility] ECG 12-LEAD 2020-07-29 12:26:22 [facility] XR CHEST 1 VIEW 2020-07-29 11:29:00 Juana [facility]/BEDSIDE [facility] CT BRAIN WITHOUT IV 2020-07-29 11:11:[address] [facility] CONTRAST [facility] CBC W/PLT COUNT & AUTO 2020-07-29 10:52:00 [facility] BASIC METABOLIC PANEL (7) 2020-07-29 10:52:00 Gabriel Arias [facility] HEPATIC FUNCTION PANEL 2020-07-29 10:52:00 [facility] PROTHROMBIN TIME/INR 2020-07-29 10:52:00 [facility] TROPONIN I 2020-07-29 10:52:00 [facility] LACTIC ACID, VENOUS 2020-07-29 10:52:00 Juana [facility] BLOOD GAS, VENOUS 2020-07-29 10:52:00 Juana [facility] AMMONIA 2020-07-29 10:52:00 Juana [facility] BLOOD CULTURE 2020-07-29 10:52:00 Juana [facility] POCT-GLUCOSE METER 2020-07-29 10:12:00 Juana [facility] REPORT OF PROCEDURE - 2020-07-29 00:00:00 ProviderMayi [facility] ENDOSCOPY SCAN Scanning [facility] BASIC METABOLIC PANEL (7) 2020-07-26 15:57:00 Myrna Mccray [facility] HEPATIC FUNCTION PANEL 2020-07-26 15:57:00 Myrna Mccray [facility] CBC W/PLT COUNT & AUTO 2020-07-26 15:57:00 Myrna Mccray [facility] PROTHROMBIN TIME/INR 2020-07-26 15:57:00 Myrna Mccray [facility] ALPHA FETOPROTEIN (AFP), 2020-07-26 15:57:00 Myrna Mccray [facility] TUMOR MARKER [facility] CBC W/PLT COUNT & AUTO 2020-07-07 05:56:[address] [facility] TACROLIMUS LEVEL 2020-07-07 05:56:00 Pb Gross [facility] COMPREHENSIVE METABOLIC 2020-07-07 05:56:[address] [facility] US DOPPLER 2020-07-06 18:06:00 Sulma [facility] US ABDOMEN COMPLETE 2020-07-06 17:18:00 Sulma [facility] US PARACENTESIS 2020-07-06 17:18:00 Sulma [facility] BODY FLUID CELL COUNT WITH 2020-07-06 17:09:00 Joi Ozuna bal [facility] BODY FLUID CULTURE + GRAM 2020-07-06 17:09:00 Joi Ozuna Iqb al [facility] CBC W/PLT COUNT & AUTO 2020-07-06 07:24:00 Ricardo Muniz [facility] S t [facility] DIFFERENTIAL [facility] COMPREHENSIVE METABOLIC 2020-07-06 07:24:[address] [facility] TACROLIMUS LEVEL 2020-07-06 07:24:00 Ginny [facility] PREPARE LEUKO-REDUCED RBC 2020-07-05 23:54:00 Ricardo Muniz [facility] URINALYSIS W/ MICROSCOPIC 2020-07-05 15:45:00 [facility] SODIUM, RANDOM URINE 2020-07-05 15:45:[address] [facility] CBC W/PLT COUNT & AUTO 2020-07-05 04:58:00 Ricardo Muniz [facility] COMPREHENSIVE METABOLIC 2020-07-05 04:58:[address] [facility] TACROLIMUS LEVEL 2020-07-05 04:58:00 Ginny [facility] TRANSFUSE LEUKO-REDUCED RED 2020-07-04 19:40:31 Ricardo Muniz [facility] BLOOD CELLS [facility] XR CHEST 1 VIEW 2020-07-04 12:46:00 Xander Shaffer [facility] s - PORTABLE/BEDSIDE [facility] SARS-COV2/RT-PCR ([facility] & 2020-07-04 12:11:00 Ricardo Muniz [facility] - REF LABS) [facility] TYPE AND SCREEN, AUTOMATED 2020-07-04 11:04:00 Ricardo Muniz [facility] CBC W/PLT COUNT & AUTO 2020-07-04 05:00:00 Ricardo Muniz [facility] COMPREHENSIVE METABOLIC 2020-07-04 05:00:[address] [facility] PHOSPHORUS 2020-07-04 05:00:[address] [facility] SARS-COV2/RT-PCR ([facility] & 2020-07-03 17:09:00 Ricardo Muniz [facility] - REF LABS) [facility] US PARACENTESIS 2020-07-03 15:19:00 [facility] CYTOLOGY 2020-07-03 14:54:00 [facility] ALBUMIN PERITONEAL FLUID 2020-07-03 14:53:00 [facility] AMYLASE PERITONEAL FLUID 2020-07-03 14:53:00 [facility] BODY FLUID CELL COUNT WITH 2020-07-03 14:53:00 [facility] PROTEIN, BODY FLUID 2020-07-03 14:53:00 [facility] CULTURE + SMEAR 2020-07-03 14:52:00 [facility] (NON-SPUTUM) [facility] BODY FLUID CULTURE + GRAM 2020-07-03 14:52:00 [facility] FUNGUS CULTURE + SMEAR 2020-07-03 14:52:00 [facility] 2020-07-03 13:27:[address] [facility] [address] [facility] IV 2020-07-03 12:05:00 [facility] POCT-GLUCOSE METER 2020-07-03 11:55:00 [facility] BLOOD CULTURE 2020-07-03 11:44:00 [facility] AMMONIA 2020-07-03 11:43:00 [facility] CBC W/PLT COUNT & AUTO 2020-07-03 11:37:00 Shahid [facility] LACTIC ACID, VENOUS 2020-07-03 11:37:00 [facility] COMPREHENSIVE METABOLIC 2020-07-03 11:37:00 [facility] PROTHROMBIN TIME/INR 2020-07-03 11:37:00 [facility]innieroger [facility], [facility] APTT 2020-07-03 11:37:00 [facility] BLOOD CULTURE 2020-07-03 11:37:00 [facility] ECG 12-LEAD 2020-07-03 11:19:12 Unknown, Hl7 Doctor [facility] REPORT OF PROCEDURE - 2020-07-03 00:00:00 Provider, Mayi [facility] ENDOSCOPY SCAN Scanning [facility] PREPARE LEUKO-REDUCED AND 2020-06-23 23:54:00 Luis Contreras [facility] IRRADIATED RBC [facility] BASIC METABOLIC PANEL (7) 2020-06-23 04:16:00 Luis Contreras [facility] CBC W/PLT COUNT & AUTO 2020-06-23 04:16:[address] [facility] MAGNESIUM 2020-06-23 04:16:00 Luis Contreras [facility] TACROLIMUS LEVEL 2020-06-23 04:16:00 Chandra Grey [facility] TRANSFUSE LEUKO-REDUCED AND 2020-06-22 16:04:31 Luis Contreras [facility] IRRADIATED RED BLOOD CELLS [facility] CMV PCR, QUANTITATIVE 2020-06-22 11:28:00 Xander Shaffer [facility] PREPARE LEUKO-REDUCED RBC 2020-06-22 11:05:00 Luis Contreras [facility] TYPE AND SCREEN, AUTOMATED 2020-06-22 09:38:00 Luis Contreras [facility] CBC W/PLT COUNT & AUTO 2020-06-22 06:11:00 Torey Chapman [facility] BASIC METABOLIC PANEL (7) 2020-06-22 03:37:00 Allencherril [facility] MAGNESIUM 2020-06-22 03:37:00 [facility] CBC W/PLT COUNT & AUTO 2020-06-22 03:37:00 [facility]ERR[facility]IN 2020-06-21 16:53:00 [facility] IRON, TIBC, % SAT. (WITHOUT 2020-06-21 16:53:00 [facility] FERR[facility]IN) [facility] BASIC METABOLIC PANEL (7) 2020-06-21 03:44:00 Allencherri [facility] MAGNESIUM 2020-06-21 03:44:00 [facility] CBC W/PLT COUNT & AUTO 2020-06-21 03:44:00 [facility] PHOSPHORUS 2020-06-21 03:44:00 [facility] SARS-COV2/RT-PCR ([facility] & 2020-06-20 20:10:00 Joel Andrews [facility] LACTIC ACID, VENOUS 2020-06-20 19:48:00 Joel Andrews [facility] BLOOD CULTURE 2020-06-20 19:48:00 Joel Andrews [facility] CBC W/PLT COUNT & AUTO 2020-06-20 18:19:00 Joel Andrews [facility] LACTIC ACID, VENOUS 2020-06-20 18:19:00 Joel Andrews [facility] COMPREHENSIVE METABOLIC 2020-06-20 18:19:[address] [facility] PROTHROMBIN TIME/INR 2020-06-20 18:19:00 Joel Andrews [facility] APTT 2020-06-20 18:19:00 Joel Andrews [facility] BLOOD CULTURE 2020-06-20 18:19:00 Joel Andrews [facility] BODY FLUID CELL COUNT WITH 2020-06-17 16:32:00 Oniel Chaneyan Michelle [facility] US PARACENTESIS 2020-06-17 15:55:00 [facility] POCT-CREATININE 2020-06-17 15:33:00 [facility] PROTHROMBIN TIME/INR 2020-06-17 10:02:00 Myrna Mccray [facility] TOXICOLOGY SCREEN, SERUM 2020-06-17 10:02:00 Myrna Mccray [facility] BASIC METABOLIC PANEL (7) 2020-06-17 10:01:00 Myrna Mccray [facility] HEPATIC FUNCTION PANEL 2020-06-17 10:01:00 Myrna Mccray [facility] CBC W/PLT COUNT & AUTO 2020-06-17 10:01:00 Myrna Mccray [facility] US PARACENTESIS 2020-06-10 17:00:00 [facility] BODY FLUID CELL COUNT WITH 2020-06-10 16:51:00 Jos Chaney [facility] CBC W/PLT COUNT & AUTO 2020-06-10 13:25:00 [facility] PROTHROMBIN TIME/INR 2020-06-10 13:25:00 Lynn Chávez [facility] APTT 2020-06-10 13:25:00 Lynn Chávez [facility] EBV ANTIBODY, IGG 2020-05-13 13:22:00 Ulices Davis [facility] POCT-GLUCOSE METER 2020-05-01 08:19:00 Maine Hernandez [facility] BASIC METABOLIC PANEL (7) 2020-05-01 05:03:00 Ernesto Funes CH, I [facility] HEPATIC FUNCTION PANEL 2020-05-01 05:03:00 Fajilan, [facility] PROTHROMBIN TIME/INR 2020-05-01 05:03:00 Shereeeduardo [facility] CBC W/PLT COUNT & AUTO 2020-05-01 05:03:00 [facility] MAGNESIUM 2020-05-01 05:03:00 [facility] PHOSPHORUS 2020-05-01 05:03:00 Dominickkuldeep [facility] TACROLIMUS LEVEL 2020-05-01 05:03:00 [facility] B-TYPE NATRIURETIC FACTOR 2020-05-01 05:03:00 Marin [facility] (BNP) [facility] POCT-GLUCOSE METER 2020-04-30 11:54:00 Alona, [facility] POCT-GLUCOSE METER 2020-04-30 08:09:00 Alona [facility] CBC W/PLT COUNT & AUTO 2020-04-30 05:32:00 [facility] MAGNESIUM 2020-04-30 05:32:00 [facility] PHOSPHORUS 2020-04-30 05:32:00 [facility] TA[facility]OLIMUS LEVEL 2020-04-30 05:32:00 [facility] B-TYPE NATRIURETIC FACTOR 2020-04-30 05:32:00 Marin [facility] (BNP) [facility] BASIC METABOLIC PANEL (7) 2020-04-30 05:32:00 Marin [facility] HEPATIC FUNCTION PANEL 2020-04-30 05:32:00 [facility] PROT[facility]/INR 2020-04-30 05:32:00 [facility] POCT-GLUCOSE METER 2020-04-29 11:58:00 Alona, [facility] FLOW PRA CLASS I WITH 2020-04-29 10:41:00 Ryan, Bhamidipati CH I [facility] - REFLEX TO ANTIBODY [facility] SPECIFICITY FLOW PRA CLASS II WITH 2020-04-29 10:41:00 Ryan, Bhamidipati C [facility] - REFLEX TO ANTIBODY [facility] SPECIFICITY HLA TYPING CI 2020-04-29 10:41:00 Ryan, Bhamidipati [facility] HLA TYPING CII 2020-04-29 10:41:00 Ryan, Bhamidipati [facility] POCT-GLUCOSE METER 2020-04-29 08:23:00 Alona [facility] B-TYPE NATRIURETIC FACTOR 2020-04-29 06:00:00 [facility] CBC W/PLT COUNT & AUTO 2020-04-29 05:59:00 [facility] BASIC METABOLIC PANEL (7) 2020-04-29 05:59:00 Marin [facility] HEPATIC FUNCTION PANEL 2020-04-29 05:59:00 Marin [facility] PROTHROMBIN TIME/INR 2020-04-29 05:59:00 [facility] MAGNESIUM 2020-04-29 05:59:00 [facility] PHOSPHORUS 2020-04-29 05:59:00 [facility] TACROLIMUS LEVEL 2020-04-29 05:59:00 Marin [facility] POCT-GLUCOSE METER 2020-04-28 21:47:00 Alona [facility] POCT-GLUCOSE METER 2020-04-28 17:38:00 Alona [facility] POCT-GLUCOSE METER 2020-04-28 12:19:00 Alona [facility] US PELVIS WITH DOPPLER 2020-04-28 11:15:00 Josue [facility] POCT-GLUCOSE METER 2020-04-28 07:31:00 Alona, [place] [facility] PREPARE LEUKO-REDUCED RBC 2020-04-27 23:54:00 Alona, [place] jose [facility] POCT-GLUCOSE METER 2020-04-27 22:00:00 Alona, [place] [facility] POCT-GLUCOSE METER 2020-04-27 17:54:00 Alona, [facility] HEMOGLOBIN AND HEMATOCRIT 2020-04-27 16:50:00 Alona, [place] jose [facility] POCT-GLUCOSE METER 2020-04-27 16:49:00 [facility] 2020-04-27 16:49:00 Alona, [place] [facility] POCT-GLUCOSE METER 2020-04-27 15:22:00 Alona, [facility] POCT-GLUCOSE METER 2020-04-27 15:12:00 [facility] POCT-ACT 2020-04-27 13:40:00 Alona, [place] [facility] POCT-GLUCOSE METER 2020-04-27 11:23:00 [place]ona, [place] [facility] R & L CATH / CORONARY 2020-04-27 11:13:00 Vahid Steele [facility] ANGIOS (+/- LV) [facility] POCT-GLUCOSE METER 2020-04-27 09:58:00 Alona, [facility] CBC W/PLT COUNT & AUTO 2020-04-27 05:31:[address] [facility] BASIC METABOLIC PANEL (7) 2020-04-27 05:31:00 Ernesto Funes [facility] HEPATIC FUNCTION PANEL 2020-04-27 05:31:00 Marin [facility] PROTHROMBIN TIME/INR 2020-04-27 05:31:00 [facility] MAGNESIUM 2020-04-27 05:31:00 [facility] PHOSPHORUS 2020-04-27 05:31:00 [facility] TACROLIMUS LEVEL 2020-04-27 05:31:00 Marin [facility] B-TYPE NATRIURETIC FACTOR 2020-04-27 05:31:00 [facility] ([facility] TRANSFUSE LEUKO-REDUCED RED 2020-04-26 20:54:02 [place] Hernandezu nna [facility] POCT-GLUCOSE METER 2020-04-26 19:48:00 Maine Hernandez [facility] US ABDOMEN COMPLETE 2020-04-26 16:07:00 Indio Pleitez [facility] US DOPPLER 2020-04-26 16:07:00 Maine Hernandez [facility] TRANSFUSE LEUKO-REDUCED RED 2020-04-26 15:19:40 [place] Hernandezu nna [facility] POCT-GLUCOSE METER 2020-04-26 12:18:00 Maine Hernandez [facility] VITAMIN B12 AND FOLATE 2020-04-26 09:05:00 Maine Hernandeza C [facility] HAPTOGLOBIN 2020-04-26 09:05:00 [place] Hernandeza [facility] TYPE AND SCREEN, AUTOMATED 2020-04-26 08:06:00 Maine Hernandezun na [facility] CBC W/PLT COUNT & AUTO 2020-04-26 08:06:00 [place] Hernandez Hyunna C [facility] POCT-GLUCOSE METER 2020-04-26 07:46:00 [place] Hernandezbrycebree [facility] CBC W/PLT COUNT & AUTO 2020-04-26 05:31:00 [facility] (CELLAVISION MANUAL DIFF) 2020-04-26 05:31:00 Marin [facility] BASIC METABOLIC PANEL (7) 2020-04-26 05:31:00 Marin [facility] HEPATIC FUNCTION PANEL 2020-04-26 05:31:00 Marin [facility] PROTHROMBIN TIME/INR 2020-04-26 05:31:00 [facility] MAGNESIUM 2020-04-26 05:31:00 [facility] PHOSPHORUS 2020-04-26 05:31:00 [facility] TACROLIMUS LEVEL 2020-04-26 05:31:00 Marin [facility] B-TYPE NATRIURETIC FACTOR 2020-04-26 05:31:00 Marin [facility] (BNP) [facility] LACTATE DEHYDROGENASE (LDH) 2020-04-26 05:31:00 [place] Hernandez [facility] RETICULOCYTE COUNT 2020-04-26 05:31:00 Alona [facility] POCT-GLUCOSE METER 2020-04-25 22:06:00 [facility] BLOOD GAS, VENOUS 2020-04-25 21:40:00 [facility] 2020-04-25 19:55:00 [facility] IRON, TIBC, % SAT. (WITHOUT 2020-04-25 19:55:00 [facility] FERRITIN) [facility] VITAMIN D, 25-HYDROXY 2020-04-25 19:55:00 [facility] TOXICOLOGY SCREEN, SERUM 2020-04-25 19:53:00 Mary Ann, [facility] POCT-GLUCOSE METER 2020-04-25 15:14:00 Alona [facility] MISCELLANEOUS LAB ORDER 2020-04-25 14:44:00 Mary Ann, [facility] POCT-GLUCOSE METER 2020-04-25 11:21:00 Alona [facility] POCT-GLUCOSE METER 2020-04-25 07:35:00 Alona [facility] LACTIC ACID, VENOUS 2020-04-25 05:51:00 Marin [facility] FIBRINOGEN 2020-04-25 05:51:00 [facility] CBC W/PLT COUNT & AUTO 2020-04-25 04:16:00 [facility] [facility] BASIC METABOLIC PANEL (7) 2020-04-25 04:16:00 [facility] HEPATIC FUNCTION PANEL 2020-04-25 04:16:00 [facility] MAGNESIUM 2020-04-25 04:16:00 [facility] PHOSPHORUS 2020-04-25 04:16:00 [facility] TACROLIMUS LEVEL 2020-04-25 04:16:00 [facility] B-TYPE NATRIURETIC FACTOR 2020-04-25 04:16:00 [facility] (BNP) [facility] IMMUNOGLOBULIN G (IGG) 2020-04-25 04:16:00 [facility] LIPASE 2020-04-25 04:16:00 [facility] PROTHROMBIN TIME/INR 2020-04-25 04:15:00 [facility] IGG SUBCLASSES PANEL 2020-04-25 04:15:00 [facility] XR ABDOMEN / KUB 1 VIEW 2020-04-25 01:19:00 Ernesto Funes [facility] US RENAL COMPLETE 2020-04-25 01:05:00 Ernesto Funes [facility] POCT-GLUCOSE METER 2020-04-25 00:29:00 Alona [facility] SARS-COV2/RT-PCR ([facility] & 2020-04-25 00:05:00 Vahid Aguiar [facility] - REF LABS) [facility] POCT-GLUCOSE METER 2020-04-24 23:40:00 Alona, [facility] URINALYSIS W/ REFLEX URINE 2020-04-24 21:31:00 Vahid Aguiar [facility] SODIUM, RANDOM URINE 2020-04-24 21:31:00 [facility] CHLORIDE, RANDOM URINE 2020-04-24 21:31:00 Lucia neo Baez [facility] POTASSIUM, RANDOM URINE 2020-04-24 21:31:00 Roman Myers [facility] UREA NITROGEN, RANDOM URINE 2020-04-24 21:31:00 Roman Myers [facility] CREATININE, RANDOM URINE 2020-04-24 21:31:00 Lucia [facility] PROTEIN, RANDOM URINE 2020-04-24 21:31:00 [facility] LACTIC ACID, VENOUS 2020-04-24 21:05:00 Vahid Aguiar [facility] TACROLIMUS LEVEL 2020-04-24 21:05:00 Vahid Aguiar [facility] ECG 12-LEAD 2020-04-24 21:04:40 Unknown, Hl7 [facility] ECG 12-LEAD 2020-04-24 21:00:10 Vahid Aguiar [facility] XR CHEST 2 VIEWS 2020-04-24 18:36:00 Cosme, [facility] BLOOD GAS, VENOUS 2020-04-24 18:33:00 Cosme, [facility] PROCALCITONIN 2020-04-24 18:33:00 [facility] TSH/FREE T4 IF INDICATED 2020-04-24 18:33:00 Cosme, [facility] B-TYPE NATRIURETIC FACTOR 2020-04-24 18:33:00 Cosme, [facility] (BNP) [facility] T4, FREE 2020-04-24 18:33:00 Cosme, [facility] CBC W/PLT COUNT & AUTO 2020-04-24 18:22:00 Cosme, [facility] BLOOD CULTURE 2020-04-24 18:22:00 Cosme, [facility] LACTIC ACID, VENOUS 2020-04-24 18:22:00 Cosme, [facility] COMPREHENSIVE METABOLIC 2020-04-24 18:22:00 Cosme, [facility] PROTHROMBIN TIME/INR 2020-04-24 18:22:00 Cosme, [facility] APTT 2020-04-24 18:22:00 Cosme, [facility] TROPONIN I 2020-04-24 18:22:00 Cosme, [facility] ED ECG INTERPRETATION 2020-04-24 17:38:57 Kaushikwilder, [facility] CARDIAC CATH REPORT - SCAN 2020-04-24 00:00:00 Provider, Default [facility] REPORT OF PROCEDURE - 2020-04-24 00:00:00 Provider, [facility] ENDOSCOPY SCAN [facility] NM MYOCARDIAL PERFUSION 2020-04-19 15:30:00 Vincenzo See [facility] - SPECT, PHARM(LEXISCAN) Medical C enter TREADMILL 2020-04-19 11:26:36 Unknown, Hl7 [facility] - TOLERANCE(NON-NUCLEAR Medical Ce nter TREADMILL) ECG 12-LEAD 2020-04-19 11:13:30 Unknown, Hl7 Doctor [facility] ECG 12-LEAD 2020-04-19 11:12:55 Unknown, Hl7 Doctor [facility] CAROTID DOPPLER BILATERAL 2020-04-07 09:05:00 Aaron Green CH I [facility] ECG 12-LEAD 2020-04-07 08:45:08 Aaron Green [facility] XR MANDIBLE 4 VIEWS MIN 2020-04-06 12:40:00 Aaron Green [facility] XR CHEST 2 VIEWS 2020-04-06 12:40:00 Aaron Green [facility] DXA BONE DENSITY STUDY 2020-04-06 12:39:00 Aaron Green CH [facility] MISCELLANEOUS LAB ORDER 2020-04-06 10:55:00 Vincenzo See [facility] CBC W/PLT COUNT & AUTO 2020-04-06 07:38:[address] [facility] - DIFFERENTIAL [facility] COMPREHENSIVE METABOLIC 2020-04-06 07:38:00 Aaron Green [facility] BILIRUBIN, DIRECT 2020-04-06 07:38:[address] [facility] GAMMA GLUTAMYL TRANSFERASE 2020-04-06 07:38:00 Aaron Green [facility] (GGT) [facility] CALCIUM, IONIZED 2020-04-06 07:38:00 Aaron Green [facility] MAGNESIUM 2020-04-06 07:38:00 Aaron Green [facility] PHOSPHORUS 2020-04-06 07:38:00 Aaron Green [facility] LIPID PANEL 2020-04-06 07:38:00 Aaron Green [facility] DRUG SCREEN, URINE, 2020-04-06 07:38:[address] [facility] TRANSPLANT [facility] ZINC 2020-04-06 07:38:00 Aaron Green [facility] URIC ACID 2020-04-06 07:38:00 Aaron Green [facility] T3 2020-04-06 07:38:00 Aaron Green [facility] CYTOMEGALOVIRUS ANTIBODY, 2020-04-06 07:38:[address] [facility] IGM [facility] EBV ANTIBODY, IGM 2020-04-06 07:38:[address] [facility] RPR 2020-04-06 07:38:00 Aaron Green [facility] T SPOT TB 2020-04-06 07:38:00 Aaron Green [facility] URINALYSIS W/ MICROSCOPIC 2020-04-06 07:38:00 Aaron Green CH [facility] ALPHA-1 ANTITRYPSIN 2020-04-06 07:38:00 Aaron Green [facility] - MUTATION ANALYSIS [facility] CRYPTOCOCCAL ANTIGEN 2020-04-06 07:38:00 Aaron Green [facility] VARICELLA ZOSTER ANTIBODY, 2020-04-06 07:38:[address] [facility] - IGG [facility] RUBELLA ANTIBODY, IGG 2020-04-06 07:38:00 Aaron Green [facility] FIBRINOGEN 2020-04-06 07:37:00 Aaron Green [facility] PROTHROMBIN TIME/INR 2020-04-06 07:37:00 Aaron Green [facility] APTT 2020-04-06 07:37:00 Aaron Green [facility] ACTIN (SMOOTH MUSCLE) 2020-04-06 07:37:00 Aaron Green [facility] - ANTIBODY, IGG [facility] TRANSFERRIN 2020-04-06 07:37:00 Aaron Green [facility] CERULOPLASMIN 2020-04-06 07:37:00 Aaron Green [facility] VITAMIN D, 25-HYDROXY 2020-04-06 07:37:00 Aaron Green [facility] ETHANOL 2020-04-06 07:37:00 Aaron Green [facility] CARBOHYDRATE ANTIGEN 19-9 2020-04-06 07:37:[address] [facility] (CA 19-9) [facility] CARCINOEMBRYONIC ANTIGEN 2020-04-06 07:37:00 Aaron Green [facility] (CEA) [facility] TSH 2020-04-06 07:37:00 Aaron Green [facility] T4 2020-04-06 07:37:00 Aaron Green [facility] HEPATITIS A ANTIBODY, IGG 2020-04-06 07:37:00 Aaron Green CH I [facility] HEPATITIS A ANTIBODY, IGM 2020-04-06 07:37:00 Aaron Green CH I [facility] HEPATITIS B SURFACE ANTIGEN 2020-04-06 07:37:00 Aaron Green [facility] HEPATITIS B SURFACE 2020-04-06 07:37:00 [facility] HEPATITIS B CORE ANTIBODY, 2020-04-06 07:37:00 Aaron Green HI [facility] - TOTAL [facility] HEPATITIS B CORE ANTIBODY, 2020-04-06 07:37:00 Aaron Green [facility] - IGM [facility] HEPATITIS C ANTIBODY 2020-04-06 07:37:00 Aaron Green [facility] HIV-1 ANTIGEN WITH HIV-1/2 2020-04-06 07:37:00 Aaron Green [facility] - ANTIBODY [facility] [id number] 2020-04-06 07:37:00 Aaron Green [facility] - QUANTITATION & [facility] PSA 2020-04-06 07:37:00 Aaron Green [facility] TESTOSTERONE, FREE + TOTAL 2020-04-06 07:37:00 Aaron Green [facility] ANTIBODY, IGG 2020-04-06 07:37:00 Aaron Green [facility] RUBEOLA ANTIBODY IGG 2020-04-06 07:37:00 Aaron Green [facility] [id number] (AAT) 2020-04-06 07:37:00 Aaron Green [facility] CBC W/PLT COUNT & AUTO 2020-03-09 14:31:00 Susanne [facility] BASIC METABOLIC PANEL (7) 2020-03-09 14:31:00 Jos Chaney [facility] HEPATIC FUNCTION PANEL 2020-03-09 14:31:00 Susanne [facility] PROTHROMBIN TIME/INR 2020-03-09 14:31:00 Susanne [facility] ALPHA FETOPROTEIN (AFP), 2020-03-09 14:31:[address] [facility] TACROLIMUS LEVEL 2020-03-09 14:31:00 Susanne [facility] BASIC METABOLIC PANEL (7) 2020-02-29 12:46:00 RyanDaisyt i [facility] BASIC METABOLIC PANEL (7) 2020-02-26 06:15:00 [place] Hernandez a [facility] TACROLIMUS LEVEL 2020-02-26 06:15:00 Pb Gross [facility] MAGNESIUM 2020-02-26 06:15:00 Maine Hernandeza [facility] BASIC METABOLIC PANEL (7) 2020-02-25 14:04:00 Dar Dacosta [facility] PULMONARY FUNCTION - SCAN 2020-02-25 13:40:03 Provider, Mayi [facility] BASIC METABOLIC PANEL (7) 2020-02-25 05:52:00 Maine Hernandez [facility] TACROLIMUS LEVEL 2020-02-25 05:52:00 Pb Gross [facility] MAGNESIUM 2020-02-25 05:52:00 Alona, [place] Rogersa [facility] CBC (HEMOGRAM ONLY) 2020-02-25 05:52:00 Alona, [place] norma [facility] PTH, INTACT 2020-02-25 05:52:00 Vo, [facility] VITAMIN D, 25-HYDROXY 2020-02-25 05:52:00 Vo, [facility] HEPATIC FUNCTION PANEL 2020-02-25 05:52:00 Екатерина [facility] US ABDOMINAL WITH DOPPLER 2020-02-24 22:56:00 Екатерина [facility] BLOOD GAS, VENOUS 2020-02-24 18:13:00 Vo, [facility] SODIUM, RANDOM URINE 2020-02-24 18:02:00 Vo, [facility] POTASSIUM, RANDOM URINE 2020-02-24 18:02:00 Vo, [facility] CHLORIDE, RANDOM URINE 2020-02-24 18:02:00 Vo, [facility] UREA NITROGEN, RANDOM URINE 2020-02-24 18:02:00 Vo, [facility] CREATININE, RANDOM URINE 2020-02-24 18:02:00 Vo, [facility] BASIC METABOLIC PANEL (7) 2020-02-24 12:47:00 Vo, [facility] 2D ECHO W/ DOPPLER 2020-02-24 11:53:11 [place] [facility] ([facility] BASIC METABOLIC PANEL (7) 2020-02-24 06:07:00 Alona, [place] Rogers a [facility] PROTHROMBIN TIME/INR 2020-02-24 06:07:00 Alona, [place] Adams [facility] TACROLIMUS LEVEL 2020-02-24 06:07:00 Pb Gross [facility] US RENAL COMPLETE 2020-02-24 00:25:00 Alona, [place] Adams [facility] URINALYSIS W/ MICROSCOPIC 2020-02-23 20:51:00 Alona, [place] jose [facility] SODIUM, RANDOM URINE 2020-02-23 20:51:00 Alona, [place] Bryan [facility] CREATININE, RANDOM URINE 2020-02-23 20:51:00 Alona, [place] Hynorma [facility] PROTEIN, RANDOM URINE 2020-02-23 20:51:00 Alona, [place] Adams CH I [facility] BASIC METABOLIC PANEL (7) 2020-02-23 17:53:00 Alona, Maineva Rogers a [facility] B-TYPE NATRIURETIC FACTOR 2020-02-23 17:53:00 Alona, [place] [facility] IRON, TIBC, % SAT. (WITHOUT 2020-02-23 17:53:00 Alona, [place] Linnu nna [facility] - FERRITIN) [facility] VITAMIN B12 AND FOLATE 2020-02-23 17:53:00 Alona, [place] Rogersa C HI [facility] FERRITIN 2020-02-23 17:53:00 Alona, [place] Hybrycea [facility] SARS-COV2/RT-PCR (HS & 2020-02-23 12:33:00 Pb Gross h [facility] - REF LABS) [facility] XR CHEST 2 VIEWS 2020-02-23 11:42:00 [facility] 2020-02-23 10:54:00 [facility] W/PLT COUNT & AUTO 2020-02-23 10:27:00 July HennessyBonds [facility] AB SPECIFICITY CLASS I 2020-02-23 10:27:00 July Hennessy [facility] AB SPECIFICITY CLASS II 2020-02-23 10:27:00 [facility]PREHENSIVE METABOLIC 2020-02-23 10:27:00 July Hennessy [facility] FLOW PRA CLASS I WITH 2020-02-23 10:27:00 July Hennessy [facility] REFLEX TO ANTIBODY Medical Cente r SPECIFICITY FLOW PRA CLASS II WITH 2020-02-23 10:27:00 July HennessyBonds [facility] REFLEX TO ANTIBODY Medical Cente r SPECIFICITY HEMOGLOBIN A1C 2020-02-23 10:27:00 [facility] 2020-02-23 10:27:00 July Hennessy [facility] PHOSPHORUS 2020-02-23 10:27:00 [facility]o [facility] DONOR SPECIFIC, DSA 2020-02-23 10:27:00 [facility] CMV PCR, QUANTITATIVE 2020-02-23 10:26:00 July Hennessy [facility] TACROLIMUS LEVEL 2020-02-23 10:26:00 Minoo July [facility] PROTHROMBIN TIME/INR 2020-01-27 10:56:00 Aaron Green [facility] HEPATIC FUNCTION PANEL 2020-01-27 10:56:00 Aaron Green [facility] BASIC METABOLIC PANEL (7) 2020-01-27 10:56:00 Aaron Green [facility] CBC W/PLT COUNT & AUTO 2020-01-27 10:56:00 Aaron Green [facility] REPORT OF PROCEDURE - 2019-12-17 15:00:40 Provider, Default [facility] - ENDOSCOPY SCAN Scanning [facility] RHYTHM STRIP - SCAN 2019-12-14 10:01:05 Provider, Default [facility] BLOOD CULTURE 2019-12-10 20:28:00 Robin, [facility] LACTIC ACID, VENOUS 2019-12-10 20:27:00 Robin, [facility] CBC W/PLT COUNT & AUTO 2019-12-10 20:07:00 Robin, [facility] SARS-COV2/RT-PCR (HS & 2019-12-10 20:07:00 Robin, [facility] REF LABS) [facility] BLOOD CULTURE 2019-12-10 20:07:00 Robin, [facility] LACTIC ACID, VENOUS 2019-12-10 20:07:00 Robin, [facility] PROTHROMBIN TIME/INR 2019-12-10 20:07:00 Robin, [facility] APTT 2019-12-10 20:07:00 Robin, [facility] BASIC METABOLIC PANEL (7) 2019-12-10 20:07:00 Robin, [facility] HEPATIC FUNCTION PANEL 2019-12-10 20:07:00 Robin, [facility] TROPONIN I 2019-12-10 20:07:00 Robin, [facility] B-TYPE NATRIURETIC FACTOR 2019-12-10 20:07:00 Robin, [facility] (BNP) [facility] XR CHEST 1 VIEW 2019-12-10 19:48:00 Robin, [facility] PORTABLE/BEDSIDE [facility] ED ECG INTERPRETATION 2019-12-10 18:59:05 Robin, [facility] ECG 12-LEAD 2019-12-10 18:48:28 Unknown, Hl7 Doctor [facility] Plan of Care Planned Activity Planned Date Details Comments Source Future Scheduled 2025-04-06 Lipid panel [facility] s Test 00:00:00 (procedure) [code = Medical Center 38097514] Future Scheduled 2021-03-31 IMM Influenza [facility]al [facility] Test 00:00:00 Mar to August (>/= 19 yrs) [code = IMM Influenza Seasonal Mar to August (>/= 19 yrs)] Future Scheduled 2021-03-[address] [facility] - Test 00:00:00 (Season Ended) [code = Medic al Center INFLUENZA VACCINE (Season Ended)] Future Scheduled 2018-07-[address] [facility] - Test 00:00:00 0-64 YRS (3 of 3 - Medical C enter PPSV23) [code = PNEUMOCOCCAL VACCINE 0-64 YRS (3 of 3 - PPSV23)] Future Scheduled 2007 SHINGLES VACCINES ([address] [facility] - Test 00:00:00 of 2) [code = SHINGLES Medic al Center VACCINES (1 of 2)] Future Scheduled 2007 [facility] 00:[facility]:00 malignant neoplasm of colon (procedure) [code = 169588341] Future Scheduled 1976 DTAP/TDAP/TD VACCINES [facility] Test 00:00:00 (1 - Tdap) [code = Medical C enter DTAP/TDAP/TD VACCINES (1 - Tdap)] Future Scheduled [address] [facility] - Test 00:00:00 malignant neoplasm of Medica l Center colon (procedure) [code = 699431203] Encounters Start End Encounter Admission Attending Care Care Encounter Source Date/Time Date/Time Type Type Clinicians Facility Department ID 2020-12-26 2020-12-26 Outpatient [facility] [id number] [place] 00:00:00 00:00:00 Health 2020-11-30 2020-11-30 Outpatient [facility] [id number] [place] 00:00:00 00:00:00 Health 2020-11-16 2020-11-16 Outpatient [facility] [id number] [place] 00:00:00 00:00:00 Health 2020-11-14 2020-11-14 Outpatient [facility] [id number] [place] 00:00:00 00:00:00 Health 2020-10-17 2020-10-17 Office Roman Myers [id number] 09:47:48 16:38:46 Visit Nestor AMBULATOR [id number] Preston Y [id number] 2020-10-12 2020-10-12 [facility] [id number] [place] 14:56:37 17:12:47 [facility] 2020-10-12 2020-10-12 [facility] [id number] [place] 00:00:00 00:00:00 [facility] 2020-07-26 2020-07-26 Office Cole BC [id number] 09:42:55 10:28:31 Visit Rosi AMBULATOR [id number] Jory-Kathie Y [id number] 2020-06-06 2020-06-06 Office Roman Myers BC [id number] 09:14:41 10:09:35 Visit Nestor AMBULATOR [id number] Preston Y [id number] 2019-02-04 2019-02-04 Office Zach [facility] [id number] 13:15:13 13:45:13 Visit Reg AMBULATOR [id number] Shultz Y [id number] Results Test Description Test Time Test Comments Results Result Comments Source Prepare Leuko-Red RBC 2020-11-10 23:55:00 Test Item Value Reference Range Interpretation Comme nts CROSSMATCH (test code = 2264) COMPATIBLE Unit ABO (test code = 5009532) A Pos UNIT NUMBER (test code = 934-0) [id number] Status (test code = 5855759) [place]_TIMEINCHART Blood Bank Product (test code = 2263) RED BLOOD CELLS PRODUCT CODE (test code = 933-2) [id number] [facility] [id number] 10:05:00 Test Item Value Reference Range Interpretation Comments Tacrolimus Lvl (test 3.6 ng/mL 10-20 L Test pe rformed on code = 37284-8) Colon Archi tect Immunoassay sys tem with Chemilumin escent Microparticle Immunoassay (CM IA) technology. LATRELL (test code = Agricultural Systems Specialist ID - LATRELL) MARCELLE [facility] Interpretation Abnormal (test code = 83556-4) [facility]CR[facility] [id number] 10:05:00 Test Item Value Reference Range Interpretation Comments TACROLIMUS BLOOD 3.6 ng/mL 10.0-20.0 L Test perfor med on Colon (BEAKER) (test code Architec t Immunoassay = 657) system with Chemiluminescen t Microparticle I mmunoassay (CMIA) technolo gy. Agricultural Systems Specialist ID - MARCELLE FComprehensive metabolic [id number] 05:38:00 Test Item Value Reference Range Interpretation Comments Protein, Total (test 4.1 See_Comment L [Autom ated code = 2885-2) message] The system which generated this result transmitted reference range : 6.0 - 8.3 gm/dL . The reference range was not used to interpr et this result as normal/abnormal . Albumin (test code = 3.0 g/dL 3.5-5 L 64419-5) Alkaline Phosphatase 184 U/L 40-150 H (test code = 6768-6) Total Bilirubin (test 2.3 mg/dL 0.2-1.2 H code = 1974-2) Sodium (test code = 143 meq/L 807-858 8909-2) Potassium (test code 3.9 meq/L 3.5-5.1 = 2823-3) Chloride (test code = 114 meq/L 98-107 H 2075-0) CO2 (test code = 22 meq/L 22-29 8-9) BUN (test code = 38 mg/dL 7-21 H 3094-0) Creatinine (test code 1.96 mg/dL 0.57-1.25 H = 2160-0) Glucose (test code = 83 mg/dL 70-105 2345-7) Calcium (test code = 8.1 mg/dL 8.4-10.2 L 17533-0) AST (test code = 25 U/L 5-34 1920-8) ALT (test code = 23 U/L 6-55 1742-6) EGFR (test code = 35 mL/min/1.73 [place] [address]-2) NOT ACCURATE CREATININE CLEARANCE IN PREDICTING GLOMERULAR FILTRATION RATE . ESTIMATED GFR I S NOT APPLICABLE FOR DIALYSIS PATIENTS. LATRELL (test code = LATRELL) Agricultural Systems Specialist ID [place] LSpecimen slightly icteric Lab Interpretation Abnormal (test code = 81800-4) [facility]21-[facility]13 05:38:00 Test Item Value Reference Range Interpretation Comments Magnesium (test code = 1.7 mg/dL 1.6-2.6 58441-4) LATRELL (test code = LATRELL) Agricultural Systems Specialist ID - SERGIO L Lab Interpretation (test Normal code = 33265-8) [facility]21-[facility]-13 05:38:00 Test Item Value Reference Range Interpretation Comments Phosphorus (test code = 4.0 mg/dL 2.3-4.7 2777-1) LATRELL (test code = LATRELL) Agricultural Systems Specialist ID - SERGIO L Lab Interpretation (test Normal code = 12877-6) [facility]21-[facility]-13 05:38:00 Test Item Value Reference Range Interpretation Comments MAGNESIUM (BEAKER) (test code = 1.7 mg/dL 1.6-2.6 627) [employer] Systems Specialist ID - SERGIO [id number] 05:38:00 Test Item Value Reference Range Interpretation Comments PHOSPHORUS (BEAKER) (test code = 4.0 mg/dL 2.3-4.7 604) [employer] Systems Specialist ID [place] LCOMPREHENSIVE METABOLIC [id number] 05:38:00 Test Item Value Reference Range Interpretation Comments TOTAL PROTEIN 4.1 gm/dL 6.0-8.3 L (BEAKER) (test code = 770) ALBUMIN (BEAKER) 3.0 g/dL 3.5-5.0 L (test code = 1145) ALKALINE PHOSPHATASE 184 U/L 40-150 H (BEAKER) (test code = 346) BILIRUBIN TOTAL 2.3 mg/dL 0.2-1.2 H (BEAKER) (test code = 377) SODIUM (BEAKER) (test 143 meq/L 136-145 code = 381) POTASSIUM (BEAKER) 3.9 meq/L 3.5-5.1 (test code = 379) CHLORIDE (BEAKER) 114 meq/L 98-107 H (test code = 382) CO2 (BEAKER) (test 22 meq/L 22-29 code = 355) BLOOD UREA NITROGEN 38 mg/dL 7-21 H (BEAKER) (test code = 354) CREATININE (BEAKER) 1.96 mg/dL 0.57-1.25 H (test code = 358) GLUCOSE RANDOM 83 mg/dL 70-105 (BEAKER) (test code = 652) CALCIUM (BEAKER) 8.1 mg/dL 8.4-10.2 L (test code = 697) AST (SGOT) (BEAKER) 25 U/L 5-34 (test code = 353) ALT (SGPT) (BEAKER) 23 U/L 6-55 (test code = 347) EGFR (BEAKER) (test 35 mL/min/1.73 ESTIMA ABDULLAHI GFR IS code = 1092) sq m NOT ACCURATE CREATININE CLEARANCE IN PREDICTING GLOMERULAR FILTRATION RATE . ESTIMATED GFR I S NOT APPLICABLE FOR DIALYSIS PATIEN TS. Agricultural Systems Specialist ID - PIAYA LSpecimen slightly ictericCBC with platelet count + automated [id number] 05:30:00 Test Item Value Reference Range Interpretation Comments WBC (test code = 6690-2) 3.3 See_Comment L [A utomated message] The system AMS-Qi generated this result transmitted ref erence range: 3.5 - 10 .5 K/L. The refe rence range was not u sed to interpret this result as normal/abnor mal. RBC (test code = 789-8) 2.22 See_Comment L [Au tomated message] The system A[employer]-Qi generated this result transmitted ref erence range: 4.63 - 6 .08 M/L. The refe rence range was not u sed to interpret this result as normal/abnor mal. MCHC (test code = 786-4) 33.9 See_Comment L [A utomated message] The system A[employer]-Qi generated this result transmitted ref erence range: 32.3 - 3 6.5 GM/DL. The refe rence range was not u sed to interpret this result as normal/abnor mal. Hematocrit (test code = 22.1 % 40.1-51 L 4544-3) MCV (test code = 787-2) 99.5 fL 79-92.2 H Disc ordant MCV results compare d to previous result s; clinical correl ation required. MCH (test code = 785-6) 33.8 pg 25.7-32.2 H RDW (test code = 788-0) 16.8 % 11.6-14.4 H Platelets (test code = 52 See_Comment L [Aut omated message] 777-3) The system [employer] generated this result transmitted ref erence range: 150 - 45 0 K/CU MM. The referen ce range was not u sed to interpret this result as normal/abnor mal. MPV (test code = 9.0 fL 9.4-12.4 L 84832-9) nRBC (test code = 413) 0 See_Comment [Aut omated message] The system AMS-Qi generated this result transmitted ref erence range: 0 - 0 /1 00 WBC. The refere nce range was not u sed to interpret this result as normal/abnor mal. % Neutros (test code = 71 % 429) % Lymphs (test code = 16 % 430) % Monos (test code = 8 % 431) % Eos (test code = 432) 3 % % Baso (test code = 437) 1 % # Neutros (test code = 2.29 See_Comment [Aut omated message] 670) The system [employer]-Qi generated this result transmitted ref erence range: 1.78 - 5 .38 K/L. The refe rence range was not u sed to interpret this result as normal/abnor mal. # Lymphs (test code = 0.52 See_Comment L [Auto mated message] 414) The system [employer]-Qi generated this result transmitted ref erence range: 1.32 - 3 .57 K/L. The refe rence range was not u sed to interpret this result as normal/abnor mal. # Monos (test code = 0.26 See_Comment L [Autom ated message] 415) The system [employer]-Qi generated this result transmitted ref erence range: 0.30 - 0 .82 K/L. The refe rence range was not u sed to interpret this result as normal/abnor mal. # Eos (test code = 416) 0.09 See_Comment [Au tomated message] The system [employer]-Qi generated this result transmitted ref erence range: 0.04 - 0 .54 K/L. The refe rence range was not u sed to interpret this result as normal/abnor mal. # Baso (test code = 417) 0.03 See_Comment [A utomated message] The system [employer]-Qi generated this result transmitted ref erence range: 0.01 - 0 .08 K/L. The refe rence range was not u sed to interpret this result as normal/abnor mal. Immature 2 % 0-1 H Granulocytes-Relative (test code = 2801) Lab Interpretation (test Abnormal code = 70536-2) [facility] W/PLT COUNT & AUTO [id number] 05:30:00 Test Item Value Reference Range Interpretation Comments WHITE BLOOD CELL COUNT 3.3 K/ L 3.5-10.5 L (BEAKER) (test code = 775) RED BLOOD CELL COUNT 2.22 M/ L 4.63-6.08 L (BEAKER) (test code = 761) HEMOGLOBIN (BEAKER) 7.5 GM/DL 13.7-17.5 L (test code = 410) HEMATOCRIT (BEAKER) 22.1 % 40.1-51.0 L (test code = 411) MEAN CORPUSCULAR 99.5 fL 79.0-92.2 H Discordant MCV VOLUME (BEAKER) (test result s compared to code = 753) previous result s; clinical correl ation required. MEAN CORPUSCULAR 33.8 pg 25.7-32.2 H HEMOGLOBIN (BEAKER) (test code = 751) MEAN CORPUSCULAR 33.9 GM/DL 32.3-36.5 HEMOGLOBIN CONC (BEAKER) (test code = 752) RED CELL DISTRIBUTION 16.8 % 11.6-14.4 H WIDTH (BEAKER) (test code = 412) PLATELET COUNT 52 K/CU MM 150-450 L (BEAKER) (test code = 756) MEAN PLATELET VOLUME 9.0 fL 9.4-12.4 L (BEAKER) (test code = 754) NUCLEATED RED BLOOD 0 /100 WBC 0-0 CELLS (BEAKER) (test code = 413) NEUTROPHILS RELATIVE 71 % PERCENT (BEAKER) (test code = 429) LYMPHOCYTES RELATIVE 16 % PERCENT (BEAKER) (test code = 430) MONOCYTES RELATIVE 8 % PERCENT (BEAKER) (test code = 431) EOSINOPHILS RELATIVE 3 % PERCENT (BEAKER) (test code = 432) BASOPHILS RELATIVE 1 % PERCENT (BEAKER) (test code = 437) NEUTROPHILS ABSOLUTE 2.29 K/ L 1.78-5.38 COUNT (BEAKER) (test code = 670) LYMPHOCYTES ABSOLUTE 0.52 K/ L 1.32-3.57 L COUNT (BEAKER) (test code = 414) MONOCYTES ABSOLUTE 0.26 K/ L 0.30-0.82 L COUNT (BEAKER) (test code = 415) EOSINOPHILS ABSOLUTE 0.09 K/ L 0.04-0.54 COUNT (BEAKER) (test code = 416) BASOPHILS ABSOLUTE 0.03 K/ L 0.01-0.08 COUNT (BEAKER) (test code = 417) IMMATURE 2 % 0-1 H GRANULOCYTES-RELATIVE PERCENT (BEAKER) (test code = 2801) SARS-CoV2/RT-PCR (Asymptomatic ONLY)2020-11-10 04:55:00 Test Item Value Reference Range Interpretation Comments SARS-COV2/RT-PCR Negative Not Detected, (test code = Negative, See 69287-3) external report for linked test [facility]OV[facility]2 [facility] (test code = 24663-3) LATRELL (test code = Negative result for this LATRELL) test determines that SARS-CoV-2 RNA was not present in the specimen above the Limit of Detection (LOD). However, Negative results do not preclude SARS-CoV-2 infection and should not be used as the sole basis for treatment or patient management decisions. Negative results must be combined with clinical observations, patient history, and epidemiological information. A false negative result may occur if a specimen is improperly collected, transported or handled. A false negative result should be considered if patient's recent exposures or clinical presentation indicate that COVID-19 (SARS-CoV-2) is likely and diagnostic tests for other causes of illness are negative. Re-testing should be considered in cases of suspected false negatives. The limit of detection for this assay is 800 copies/mL. This SARS CoV-2 test is a real-time RT-PCR test intended for the qualitative detection of nucleic acid from SARS-CoV-2 in a nasopharyngeal swab specimen collected from individuals suspected of COVID-19 by their healthcare provider. This test has not been Food and Drug Administration (FDA) cleared or approved. This is a modified version of an approved Emergency Use Authorization (EUA) and is in the process of review by the FDA. Once authorized by the FDA, the issued EUA will be effective until the declaration that circumstances exist justifying the authorization of the emergency use of in vitro diagnostic tests for detection and/or diagnosis of COVID-19 is terminated under Section 564(b)(2) of the Act or the EUA is revoked under Section 564(g) of the Act. Fact Sheet for Healthcare Providers:https://www.[employer]/sites/default/f shelli/product/documents/F act_Sheet_HC_Providers_L xpd_WZDT-DbS-7.pdf Fact Sheet for Healthcare Patients:https://www.[employer]/sites/default/fi les/product/documents/Fa ct_Sheet_Patients_Lyra_S ARS-CoV-2.pdf Performing Laboratory:[facility], [place] [address] [place], [place] [address]ARS-COV2/RT-PCR ([facility])2020-11-10 04:55:00 Test Item Value Reference Range Interpretation Comments SARS-COV2/RT-PCR (test Negative Not Detected, Negative, code = 5009382) See external report for linked test SARS-COV-2 PERFORMING LAB [facility] (test code = 0667968) Negative result for this test determines that SARS-CoV-2 RNA was not present in the specimen above the Limit of Detection (LOD). However, Negative results do not preclude SARS-CoV-2 infection and should not be used as the sole basis for treatment or patient management decisions. Negative results mustbe combined with clinical observations, patient history, and epidemiological information. A false negative result may occur if a specimen is improperly collected, transported or handled. A false negative result should be considered if patient's recent exposures or clinical presentation indicate that COVID-19 (SARS-CoV-2) is likely and diagnostic tests for other causes of illness are negative. Re-testing should be considered in cases of suspected false negatives.The limit of detection for this assay is 800 copies/mL.This SARS CoV-2 test is a real-time RT-PCR test intended for the qualitative detection of nucleic acid from SARS-CoV-2 in a nasopharyngeal swab specimen collected from individuals susp ected of COVID-19 by their healthcare provider.This test has not been Food and Drug Administration (FDA) cleared or approved. This is a modified version of an approved Emergency Use Authorization (EUA) and is in the process of review by the FDA. Once authorized by the FDA, the issued EUA will be effective until the declaration that circumstances exist justifying the authorization of the emergency use of in vitro diagnostic tests for detection and/or diagnosis of COVID-19 is terminated under Section 564(b)(2) of the Act or the EUA is revoked under Section 564(g) of the Act.Fact Sheet for Healthcare Providers:https://www.[employer]/sites/default/files/product/documents/Fact_Shee c_JR_Xfcnmpstj_Jvny_QOTF-VyC-6.pdfFact Sheet for Healthcare Patients:https://www.[employer]/sites/default/files/product/ documents/Ubvs_Fjtct_Vnljvmcf_Aunv_XLHZ-EbY-0.pdfPerforming Laboratory:[facility] [facility] [address], [place] [address]Jtwwcynkgwi time/INR 2020-11-10 04:45:00 Test Item Value Reference Interpretation Comments Range Protime (test code = 17.5 See_Comment H [Autom ated 5902-2) message] The system which generated this result transmitted reference range : 11.9 - 14.2 seconds. The reference range was not used to interpret this result as normal/abnormal . INR (test code = 1.48 See_Comment [Automated 6301-6) message] The system which generated this result transmitted reference range : <=5.90. The reference range was not used to interpret this result as normal/abnormal . LATRELL (test code = Effective 11/26/2018: LATRELL) PT Reference Range ChangeNew: 11.9-14.2 Previous: 11.7-14.7 RECOMMENDED COUMADIN/WARFARIN INR THERAPY RANGESSTANDARD DOSE: 2.0-3.0 Includes: PROPHYLAXIS for venous thrombosis, systemic embolization; TREATMENT for venous thrombosis and/or pulmonary embolus.HIGH RISK: Target INR is 2.5-3.5 for patients wiht mechanical heart valves. Lab Interpretation Abnormal (test code = 47399-4) [facility][id number] 04:45:00 Test Item Value Reference Range Interpretation Comments PROTIME (BEAKER) 17.5 seconds 11.9-14.2 H (test code = 759) INR (BEAKER) (test 1.48 See_Comment [Automat ed message] code = 370) The system AMS-Qi generated this result transmitted ref erence range: <=5.90. The reference range was not used to int erpret this result as normal/abnormal . Effective 11/26/2018: PT Reference Range ChangeNew: 11.9-14.2 Previous: 11.7- 14.7RECOMMENDED COUMADIN/WARFARIN INR THERAPY RANGESSTANDARD DOSE: 2.0-3.0 Includes: PROPHYLAXIS for venous thrombosis, systemic embolization; TREATMENT for venous thrombosis and/or pulmonary embolus.HIGH RISK: Target INR is2.5-3.5 for patients wiht mechanical heart valves.ABORH, [id number] 22:24:00 Test Item Value Reference Range Interpretation Comments Rh Factor (test code = POS Very Weak Reverse extra 2589) plasma used ABO Grouping (test code A = 2588) [facility]Type [facility] screen, [id number] 21:55:00 Test Item Value Reference Range Interpretation Comments Ab Scrn (test code = 890-4) NEGATIVE [facility]PRE[facility]ENSIVE METABOLIC [id number] 21:19:00 Test Item Value Reference Range Interpretation Comments TOTAL PROTEIN 4.6 gm/dL 6.0-8.3 L (BEAKER) (test code = 770) ALBUMIN (BEAKER) 3.4 g/dL 3.5-5.0 L (test code = 1145) ALKALINE PHOSPHATASE 200 U/L 40-150 H (BEAKER) (test code = 346) BILIRUBIN TOTAL 2.2 mg/dL 0.2-1.2 H (BEAKER) (test code = 377) SODIUM (BEAKER) (test 143 meq/L 136-145 code = 381) POTASSIUM (BEAKER) 4.2 meq/L 3.5-5.1 (test code = 379) CHLORIDE (BEAKER) 112 meq/L 98-107 H (test code = 382) CO2 (BEAKER) (test 23 meq/L 22-29 code = 355) BLOOD UREA NITROGEN 38 mg/dL 7-21 H (BEAKER) (test code = 354) CREATININE (BEAKER) 2.08 mg/dL 0.57-1.25 H (test code = 358) GLUCOSE RANDOM 165 mg/dL 70-105 H (BEAKER) (test code = 652) CALCIUM (BEAKER) 8.2 mg/dL 8.4-10.2 L (test code = 697) AST (SGOT) (BEAKER) 28 U/L 5-34 (test code = 353) ALT (SGPT) (BEAKER) 25 U/L 6-55 (test code = 347) EGFR (BEAKER) (test 32 mL/min/1.73 ESTIMA ABDULLAHI GFR IS code = 1092) sq m NOT ACCURATE CREATININE CLEARANCE IN PREDICTING GLOMERULAR FILTRATION RATE . ESTIMATED GFR I S NOT APPLICABLE FOR DIALYSIS PATIEN TS. [employer] Specialist ID - BSCBC (Hemogram only)2020-11-09 21:00:00 Test Item Value Reference Range Interpretation Comments WBC (test code = 6690-2) 3.4 See_Comment L [A utomated message] The system AMS-Qi generated this result transmitted ref erence range: 3.5 - 10 .5 K/L. The refe rence range was not u sed to interpret this result as normal/abnor mal. RBC (test code = 789-8) 1.99 See_Comment L [Au tomated message] The system AMS-Qi generated this result transmitted ref erence range: 4.63 - 6 .08 M/L. The refe rence range was not u sed to interpret this result as normal/abnor mal. MCHC (test code = 786-4) 33.3 See_Comment L [A utomated message] The system AMS-Qi generated this result transmitted ref erence range: 32.3 - 3 6.5 GM/DL. The refe rence range was not u sed to interpret this result as normal/abnor mal. Hematocrit (test code = 20.7 % 40.1-51 L 4544-3) MCV (test code = 787-2) 104.0 fL 79-92.2 H MCH (test code = 785-6) 34.7 pg 25.7-32.2 H RDW (test code = 788-0) 16.6 % 11.6-14.4 H Platelets (test code = 49 See_Comment L [Aut omated message] 777-3) The system AMS-Qi generated this result transmitted ref erence range: 150 - 45 0 K/CU MM. The referen ce range was not u sed to interpret this result as normal/abnor mal. MPV (test code = 9.0 fL 9.4-12.4 L 28144-9) nRBC (test code = 413) 0 See_Comment [Aut omated message] The system AMS-Qi generated this result transmitted ref erence range: 0 - 0 /1 00 WBC. The refere nce range was not u sed to interpret this result as normal/abnor mal. Lab Interpretation (test Abnormal code = 05414-7) [facility] (HEMOGRAM ONLY)2020-11-09 21:00:00 Test Item Value Reference Range Interpretation Comments WHITE BLOOD CELL COUNT (BEAKER) 3.4 K/ L 3.5-10.5 L (test code = 775) RED BLOOD CELL COUNT (BEAKER) 1.99 M/ L 4.63-6.08 L (test code = 761) HEMOGLOBIN (BEAKER) (test code = 6.9 GM/DL 13.7-17.5 L 410) HEMATOCRIT (BEAKER) (test code = 20.7 % 40.1-51.0 L 411) MEAN CORPUSCULAR VOLUME (BEAKER) 104.0 fL 79.0-92.2 H (test code = 753) MEAN CORPUSCULAR HEMOGLOBIN 34.7 pg 25.7-32.2 H (BEAKER) (test code = 751) MEAN CORPUSCULAR HEMOGLOBIN CONC 33.3 GM/DL 32.3-36.5 (BEAKER) (test code = 752) RED CELL DISTRIBUTION WIDTH 16.6 % 11.6-14.4 H (BEAKER) (test code = 412) PLATELET COUNT (BEAKER) (test code 49 K/CU MM 150-450 L = 756) MEAN PLATELET VOLUME (BEAKER) 9.0 fL 9.4-12.4 L (test code = 754) NUCLEATED RED BLOOD CELLS (BEAKER) 0 /100 WBC 0-0 (test code = 413) Pathology - Tissue [id number] 18:45:00 Test Item Value Reference Range Interpretation Comments Case Report (test code Surgical Pathology = [id number]) Case: [id number] Authorizing Provider: Amber Newman MD Collected: 10/12/2020 04:39 PM Ordering Location: [facility] Received: 10/12/2020 05:19 PM Pathologist: Shruthi Fields MD Specimens: A) - Forehead, right B) - Cheek, right, medial C) - Back, upper, left D) - Forearm, right E) - Forearm, left FINAL DIAGNOSIS (test i7pjyRAaQJPaeSY3SkQcVM code = 95613772) Ttg5sla4UdpKMfjCXoMYzm pYChjkKltq17xSK9pH81WW 4hMLWeQrS5JTWgglO6Vho0 LYWbUTOfvTSqZ589x6wjg2 gtwsVubTP6zDrxKMXuIYRc LFgvSDEgJuCaTV3cYHBNKN 5eJIGKC2xDNPOAGsWFZQTB NXQQTK0CH1o8TNBegab0GZ IgLSBCQVNBTCBDRUxMIENB WkVJKq3BFBohZc9PVYwGVq LFNUMZJGBwwty1BWHfATZD TwBHN6WUPVCZOCQMMHVPG5 GxfMQxZMXkhbYFPfZoF6nP CpfsGhzDYKRbO7vJXFsqQY GCH6DNVYnbdGMrYQAeAjWv IEFUIExFQVNUIFNRVUFNT1 SKASLNSXvnA0JTR7uHF63C IElOIFNJVFUgKFNFRSBDT0 0KHD4KLVzcADHxOke3RhYm LDLRKcQVT5GMMOIMXLZQFJ ECY3NoGMKyhdyvfTFeaGPx YBTuBHLUO2wLGWHVQQKLXo DHQVBJXNQJNJ3JD0a1XJAn dbn1KGKuLNKGLiJUE2wRJL PBJXZRTS8LHfNMIMlBUUGW JdSREi2ZFMMhR2SMZPRPOX 1FTlQpXHBhclxmaTcyMCAt NCXNHE9ZXVVSGDYfVVVqLj FTRVxwYXJcZmkwXHBhciBE WjAoY2mZOojkVruYDUGoKl 9SRUFSTSwgQklPUFNZOlxw HJGfcAZaWE6fQ2GYBU9ZBO SwQ9BINCMETJGESF4FNXLa LK7nC2nYYWPxyBOwHWMsMm YgIV2dAGDUZePQS9SWRIVE VCBQRVJJUEhFUkFMIFRJU1 NVRSBFREdFXHBhclxmaTBc kNYfQFFfLCWGX1eXAFFFIO IWVRJPJjGYFj7mLGEQN0IT WTpccGFyXHRhYiAtIEFUIE pYDDCTGWICKYHYA4ERWPHE DPrhX2RFD4lTU00IEDcYOY FQQFDhICMNTYMJZ16WVR0C PCbaODPhMjq8ChSkQXKFVb AXD2WWPDRYMPBSXBZAY5Oh cGFyfQ== Comment (test code = j5uofEXaZNWdyPB6LcFrKA [id number]) Fps4xfe3YztWVkyKHuBJhi pBEpazEmah95qAN8iE45OZ 5vKFBxNcT2RHJewdA3Nab4 FGPaPWTnvFDuA777r3qrj9 bwssRfyIW0gJflIFGpIOSl YWluXGZzMjAgQiZFOiAgT3 J5lN0tnNLvibKezBA1yU2g COFczuJhuwWsh0gaxiKdzh VjbHVkZWQgZHVlIHRvIGxp oKr6HHJtu2Lsv11sHInyQI QdEJJybhVojY9zaMagEULb w7CliX1xfABtvT== Pertinent Clinical y5ynfWJeTYExf0arGEPfbW Information (test code BnVvVvCkEcWySrGjh2MPCn = 70677372) jsM0Tzh1KFNhCBgdxA9xHX YoFBplQ6abwpAfdTYqZZHp RUq9hE5rpLvggT0vBxPgEs DeDEA5sbRlo4JlBO74SWWo vIomklXru70vtKWofp1hdX 45yozjO07wE6GeaoEft6Av Wd4SG5mrIFFqvN== Clinical Impression e3nogMJkSHKux3qwLJCsmG (test code = JkQpQqCfJjFmCgEct8IOGg [id number]) laW0Zrs9NITaMTihyD9zVQ UaJUdkP4qlgwXrlKMyYPQq TBr2nX7gdAwusK3tEqZkAh MyMCBOTVNDXHBhciB9 Gross Description (test o3ttyOWzDUNncRDHQOCpNJ code = 97282) srhqTfIBAqzEIhB3Hhelrc BOjeZH1pHZ9oeCgwqWXtiQ YwBE1BTZEhYfKpRBIawYTi vjOuYiPrGLTgkXMwmTN9VV UxLC0ibpjtVGgxDUcaZZKs niH9HXWiuQGoD9IaDSLgNK 8eyieeFAA6JLymzT9lfzYC TetrMr2oeBKblEraFgZtXo NoYXJzZXQwXGZuaWwgQXJp PGj6hY8YNhaeSGC2OVCKWk nuKMUgTR0Nc0wnKTLfoKUn UVV5GEqloOBgSOWwYAFdWH m6KOHuDWwouWHlER7soWop YwwxaHvei7MoxTLpKQzcKN NsAWAlKRxyTCFlGY9PWrBg FZe4OSB9MBCmLLs6EIy1QO 0BRaBoGCLnFVdhNao2LvTr YKy1BTvsHA4SPBE4ZLmmIR VmVKKbPLG7WXQaZWv0QLVh XFxmIEFyaWFsIFxcZnMgOC QiZYMtASucpjY7MAPpADqk XGZzMTYgIFxwYXIgDQpccG xshC2vIGLcQ29hc9UZt8Lb XU0MLLNznaOsxACvrYLuYO G2QnSaJQM5AVY8LJd2hHOm GtMyvUmpNJvlATV2GyFoOQ v2aAYrOxWqlHi2WYHyCGS2 OMw0RHz4sHD0OUFsmFk8On PiXKQ1CmxvPNn2rSx3JIIk xYs3VyRpPTE5FFRqZPXeAE dtlSLgB6pwGroyqkGnTOHe UTLmlXXaJT0vzGBwwZMyLg FnSDSpYVFkNCPaH7r6FEIk cmVoZWFkLCBCLiBSaWdodC EfqVWuomwqJg4eTYKjEZLe YmFjayBELiBSaWdodCBmb3 AhGQGuXRVNJbBERTX4FVRj qlDdne9xoBTmZJ1UKQA4Dc LcJWC8UQG3EGe5mZXuQrYu jJbnAIasWZX3SkEcSXq4wC BbEbEvvFc2RIDoIVZ2UQh3 IIx3lOT4HWOnxOh9LfOwOR K8DdvrIId6tZp1ZNZijQy8 WdBkUOE7CVAdSRKlLTmkrY RuEN1ULEHlxlVriHJktAMx SF4GYDrkZOIlq1ZyaIJpuu UvALg4BFKfdT1uTlv7JXWa NJM2ywGsKTWeZUujWrDnFQ Wce3y2iUI2dDQqmHW6yJNf rQhaXW7aaPFaVsxKK8lFZk MCMQDGH3BWIQucRNEqUQRr C4DrVOIeT32wTPGnpR3gSK CrCC2oLSjgzsHmRABmY7Ru f7puxpBuxM3rFBPfSbLdRJ V7TrWxBRHfLQKxqLKjfgEb Q3YbwEBcbnklDFKqfSJiXL FksNDkl0c9aN6lBSHwbk9c mYOkNXxbYEE5wHPvBZBdGW AlED5xMK6poLZwYW9dXGHq Z8Xpj7flpxAgoM0iGBEwSB BhciANClxwYXIgDQpQYXJ0 IEEuICBSZWNlaXZlZCBpbi Cnw7UtHKxdvkFiKNOjtRSu ICJSSUdIVCIgaXMgYSAwLj BjqHDtYlGiS22rO2JtxB09 uDy4OZJapcQnK3OlFRYzS3 MzakHlZTNnx3nnfyVylAA2 IUSmdYLwc4IbUGPhBNXuYF AycAkmh3QxbIIqrdT7cBMk BRLmAJWlkI0gSUTnCLLasR PpaN1yblAcuiYkurtsNWD3 NPbss3xkXc1wHYWflIftru FdfKWindNuLhfyZPYzv88f NR1bKYcgW1N7uM2dDCZfs0 jebcF3lM5jMRF2odvmMGD5 YAHgPI0xAGO2Rh9efJKwXX CywjDbvSQeDY87cHYunIux qW0tH2Ooa6K1cWMhTFRwNY vxdRjxbF7mEPXkH54dm5BZ x9BbNEAoKZgga6dmoOclj1 VjdGVuZFxwYXJccGFyZFxz hZ7mYwUug8rblKt6DMxtye T1ZVTifk2PFwcmUjhcgYwx v3VsyUXxSTppGBWjKZVuOU hyVAQsZW5VIiHxYGu6PXD6 BAFuSVx8ZCi0MC5JLfCeYN ErBIymRdg3KNYrYRn9SCno MF3VBOG6LBigXVLgEuQeQX F5IZNhWNi4CLJfOGduDFVv aWFsIFxcZnMgOCBcXGZsIF unehK9KPGtTITnDXyfKZBo ENjfzKyewX5bTSRxW13zv3 JLb5RwUZ4XKNn1qvKwcddc jB1nRQSwheHpXBiylDLpE1 moPlKcXXVXGJW9IESoBLKW CNVasWJmEXGxubWni9MzBS xpbiBsYWJlbGVkICJNRURJ COnmSUbkZJIyJ9XmmL60sP q2EQL1eh6ayREreAAfIRlp zjEglNnkmoEyn7qhLQOrSD MrCQ0bCDW5qoklFmEmQtCi lOZtJaVuA44nMHH4H0bbRL AevI7qTORcFCF0dFLgNgAh XFCiWZQrZJ8qNH7dOAViPz AgVGhlIHNwZWNpbWVuIGlz PAgaf7UiCKKaaAYtOj2jQW BhdGllbnQgaWRlbnRpZmlj LQWcm60uKXLazAYqJ0MkRA wcKI0aPAX6Qd5lsRSsOCMl uzAbjRKkEO81pGOwoNqknZ 9zG9Eyc7J6xFKtIsZsULqe vBfqcE3iUHDdK75xi2BAq2 CqIEXgCQfdz4bkhEbyx2Pw dGVuZFxwYXJccGFyZFxzbC 6mNeIwm7oszYs9VHigfzD0 PXFoeg6HWsjkEibovYzfa4 VjdCBcXGlkIDUxMDAyIFxc CYWbOY4OHsJrMHj5AHM2IP SaKPv3EOp4MF7IQtVgUYEa HHfvJry2RGQvNUd3FThySR 0FIVA5YUdhQZP7RkKvAGO1 JVMyAOq9VPXrFAgbLPPdgA FsIFxcZnMgOCBcXGZsIFxc ztK0XMFzTMRoRCzyGADoFZ gytWbdzO4sZMWnU91gw4EC w4CuPW9XVVp8ioYyryafnC 7fWGDpltFdGNagzBUlN7hn ArMxUUKGGIK1UEZjIZVNNP WhcHBpICAyjkBxq7LtYNaz biBsYWJlbGVkICJMRUZUIi AykuErWKqcYIxnq7jyxTGj Y9AnuzRqHSSirT5rewqzpp IfFYUtg0lxABJcVOJmCK8w VPS3fubpPlQmWPgtHCEpuV ubXPwfhRZmYUZ7xuHpLOKx nYGvNT8yDBVoKm6oDOPtOB AgcCDbuY1sdkMsphSwecxa AZOpjoSmZ9VrMs8rFHFatJ llbnQgaWRlbnRpZmljYXRp m77mUE5vQTfuR9B0nF4yFR Yxr2lhdsX9dQ4tPCCnLAJk eLMjbNA4VMDnrT3ovL44oq BdgcOhOUIbYDY8OEICME7e NW1RXCJaEOftUGVcnEOMGZ D0HE5wUSbarYVxmkkhSZLl L5AxS8IdlmTuoCKwCRUwrm Cpe9vbFID0UNIxsNUotWSo OkWfJvxhTEB3JXb8FXwkBU BwP8QeX1EuMCccSUZ6DHQk MiBcXGRiICBPVlIgIiBJNT V0ODN3OnB5WHa9LDWENuUv KtUnAWK6OEL0NgHnRFa4LQ y9SJrWDtJkFDL5XYl6AaGt YSU0ElftGVdekTIcLIfzVj BBcmlhbCBcXGZzIDggXFxm oILlLB0meFduiuE2ARIoqO PrJU5ITQAkJTacFPRdbYMC PYG2LU2nWPQMFwdtbIGwOX WwuIupYNezqR6aPJ3PIHb8 cmNoXGZzMjAgUGFydCBELi YjMaSoNEq6HBFzmN4dHb5b qRAwqT1kzDEqDVgwCAUlDk sTYRHtOb0COAPABKFRORMB RISyKLsiLYFwO3FmuT58eY m4AZHulbHsZ3GwGRLeFQKr w0MyJW99FPYtbNPdnh1zHJ OblQ0qIFIqmY8yw3xtrsKe kJPtw9FlhR2cUSNvMbY1EA TlC39pITH6T7zuXZSorQ7d BGJnYBB5kJIdKfCdVGSuYJ FsMZ3tWB5tYJSrScXzAPac IHNwZWNpbWVuIGlzIGlua2 IiNNWsa6gueIJec8XymNU2 aWVudCBpZGVudGlmaWNhdG sloeSywxWanL8cUNHfy43w PBXttTlsBEMab94wPIZtvf kooPe4BHZrE6Kud17aZCBv stSbx3QfzEp6hEDqRVsnBV x1xhZwmgOoenD8tSLhqcNu KYJjEZC9IKAPSA8YSrfcbU FpblxlcGljTmVzdERvYzBc oXzwnR74AUMdeJCfFNR7EO 9lHRFcmftcZHLlIFVpCMW0 PEjjsK41tFRsQAZyLPCgcJ IdbJ5Tt6ueNYNqrYTjMNR3 IFxcaWQgNTEwMDIgXFxkYi PlN5ZQCXYlWLC2CxIdDECa YLw1FOnsT8VIGDTqLKH6GV AzBga6CvS3KIy7ZSUSKz7t UAp9NXO8QsReSHJ3XTK3Un BcXHQgMiBcXGYgQXJpYWwg SNopysH4JClkPmxlQGfhI9 1cZnMxNiAgXHBhciANClxw bGFpblxlcGljTmVzdERvYz EgDQpcbHRycGFyXGxpbjBc cmluMCANClxsdHJjaFxmcz ZwPTQnxpTwIJ2mHURaI6Br coBqBPbrFDKvqc3jmErzTU zdScFxHHKtFirPSlPaTu8J RUFSTSBUSVNTVUUiIGlzIG CuY8ZpgU69lTk4LJI9no7n aWVudGVkIGlycmVndWxhci viG9CpioJxXODbb9ppwvKe cSG1ZWLcVHNooIUnsevbFW U5GVCwO34hKJM7H2zeEHVy gO8yRLBmOPE7uAImSkJiPS BpREKtZK7yIK4zOOOfVyGb VGhlIHNwZWNpbWVuIGlzIG pjx5ByNAExHGLlq2VxbUW7 aWVudCBpZGVudGlmaWNhdG xgboGfotUagA7dDXFfk63j MGCzwKftBGWgu73gJQQyhu omiHc6YYIsM7Hdk25dZCEe quOzh5KxlRc9eSKoVZwtNH d9ckPsyxSjqmL6lNRghtGg SOUaYAK9MXBSYM8DOpehmV FpblxlcGljTmVzdERvYzBc lIpnpN55AYEynRJsWCI6LQ 1sWMQoddygKSXwPASxJGR3 TAxruN06iJRrSPFhORYyfW QedJ7BEQEiOIQ9UGqflI16 tECmWJ9NMLYyHQS7NYElbT YcLGW8ZG4qqD4CqR== Microscopic Description d4bpuSIvQOTaqQT5JqYtVL (test code = 155641062) Ecq0yjm0DdgWUhzGAvUYlr mXUgrrVpvd80mQC6aB54SW 5iZGEdCzB5CLChfhP3Wvw6 QEHoATArnRTnR495r0woe3 qggbVixMB1jYzyRKFfQGCw ZPlvTINaTvFbBJ6YVfHdZX GyJk6kbEWpCzuyCVTxBzOt MlxwYXJcZnMxNiBJIGhhdm AqeSHbz73iQAxjlOOjQJSm RXlnHLU6wRFdepMbCWDauu IuqSWagJUiZRHlv31iGEOh nyF6lVWeh7GfD6ggRI2vht ptTGZhaokas3UoXGGgJHXi K3ZvGGZub1j3lSC9mDFabg AacZEphqTkAzVufJ91B9Rb nV44XSTorwH3KDXuz32gLU Bhcn0= [facility] [id number] 11:13:00 Test Item Value Reference Range Interpretation Comments TACROLIMUS BLOOD 3.5 ng/mL 10.0-20.0 L Test perfor med on Photos to [employer] ([employer] ([employer])) (test code Architec t Immunoassay = 657) system with Chemiluminescen t Microparticle I mmunoassay (CMIA) technolo gy. Agricultural Systems Specialist ID - SAMY MBasic metabolic [id number] 06:49:00 Test Item Value Reference Range Interpretation Comments Sodium (test code = 141 meq/L 962-655 0327-2) Potassium (test code 3.8 meq/L 3.5-5.1 = 2823-3) Chloride (test code = 110 meq/L 98-107 H 2075-0) CO2 (test code = 22 meq/L 22-29 2028-9) BUN (test code = 47 mg/dL 7-21 H 3094-0) Creatinine (test code 1.94 mg/dL 0.57-1.25 H = 2160-0) Glucose (test code = 104 mg/dL 70-105 2345-7) Calcium (test code = 8.0 mg/dL 8.4-10.2 L 07310-6) EGFR (test code = 35 mL/min/1.73 [place] [address]-0) NOT ACCURATE CREATININE CLEARANCE IN PREDICTING GLOMERULAR FILTRATION RATE . ESTIMATED GFR I S NOT APPLICABLE FOR DIALYSIS PATIENTS. LATRELL (test code = LATRELL) Agricultural Systems Specialist ID - CASEY MSpecimen slightly icteric Lab Interpretation Abnormal (test code = 04064-1) [id number] Test Item Value Reference Range Interpretation Comments MAGNESIUM (BEAKER) (test code = 1.9 mg/dL 1.6-2.6 627) Agricultural Systems Specialist ID - CASEY MBASIC METABOLIC [id number] 06:49:00 Test Item Value Reference Range Interpretation Comments SODIUM (BEAKER) 141 meq/L 136-145 (test code = 381) POTASSIUM (BEAKER) 3.8 meq/L 3.5-5.1 (test code = 379) CHLORIDE (BEAKER) 110 meq/L 98-107 H (test code = 382) CO2 (BEAKER) (test 22 meq/L 22-29 code = 355) BLOOD UREA NITROGEN 47 mg/dL 7-21 H (BEAKER) (test code = 354) CREATININE (BEAKER) 1.94 mg/dL 0.57-1.25 H (test code = 358) GLUCOSE RANDOM 104 mg/dL 70-105 (BEAKER) (test code = 652) CALCIUM (BEAKER) 8.0 mg/dL 8.4-10.2 L (test code = 697) EGFR (BEAKER) (test 35 mL/min/1.73 ESTIMA ABDULLAHI GFR IS code = 1092) sq m NOT ACCURATE CREATININE CLEARANCE IN PREDICTING GLOMERULAR FILTRATION RATE . ESTIMATED GFR I S NOT APPLICABLE FOR DIALYSIS PATIEN TS. Agricultural Systems Specialist ID - CASEY MSpecimen slightly ictericCBC W/PLT COUNT & AUTO [id number] 06:12:00 Test Item Value Reference Range Interpretation Comments WHITE BLOOD CELL COUNT 3.7 K/ L 3.5-10.5 (BEAKER) (test code = 775) RED BLOOD CELL COUNT 2.12 M/ L 4.63-6.08 L (BEAKER) (test code = 761) HEMOGLOBIN (BEAKER) 7.4 GM/DL 13.7-17.5 L (test code = 410) HEMATOCRIT (BEAKER) 20.9 % 40.1-51.0 L (test code = 411) MEAN CORPUSCULAR 98.6 fL 79.0-92.2 H Discordant result VOLUME (BEAKER) (test compar ed to previous code = 753) result. Clinica l correlation req uired MEAN CORPUSCULAR 34.9 pg 25.7-32.2 H HEMOGLOBIN (BEAKER) (test code = 751) MEAN CORPUSCULAR 35.4 GM/DL 32.3-36.5 HEMOGLOBIN CONC (BEAKER) (test code = 752) RED CELL DISTRIBUTION 17.1 % 11.6-14.4 H WIDTH (BEAKER) (test code = 412) PLATELET COUNT 51 K/CU MM 150-450 L (BEAKER) (test code = 756) MEAN PLATELET VOLUME 9.9 fL 9.4-12.4 (BEAKER) (test code = 754) NUCLEATED RED BLOOD 0 /100 WBC 0-0 CELLS (BEAKER) (test code = 413) NEUTROPHILS RELATIVE 73 % PERCENT (BEAKER) (test code = 429) LYMPHOCYTES RELATIVE 14 % PERCENT (BEAKER) (test code = 430) MONOCYTES RELATIVE 8 % PERCENT (BEAKER) (test code = 431) EOSINOPHILS RELATIVE 4 % PERCENT (BEAKER) (test code = 432) BASOPHILS RELATIVE 1 % PERCENT (BEAKER) (test code = 437) NEUTROPHILS ABSOLUTE 2.67 K/ L 1.78-5.38 COUNT (BEAKER) (test code = 670) LYMPHOCYTES ABSOLUTE 0.50 K/ L 1.32-3.57 L COUNT (BEAKER) (test code = 414) MONOCYTES ABSOLUTE 0.31 K/ L 0.30-0.82 COUNT (BEAKER) (test code = 415) EOSINOPHILS ABSOLUTE 0.16 K/ L 0.04-0.54 COUNT (BEAKER) (test code = 416) BASOPHILS ABSOLUTE 0.02 K/ L 0.01-0.08 COUNT (BEAKER) (test code = 417) IMMATURE 1 % 0-1 GRANULOCYTES-RELATIVE PERCENT (BEAKER) (test code = 2801) TACROLIMUS [id number] 14:50:00 Test Item Value Reference Range Interpretation Comments TACROLIMUS BLOOD 8.7 ng/mL 10.0-20.0 L Test perfor med on Colon (BEAKER) (test code Architec t Immunoassay = 657) system with Chemiluminescen t Microparticle I mmunoassay (CMIA) technolo gy. Agricultural Systems Specialist ID - [id number] 11:10:00 Test Item Value Reference Range Interpretation Comments MAGNESIUM (BEAKER) (test code = 1.8 mg/dL 1.6-2.6 627) Agricultural Systems Specialist ID - GENARO CSARS-COV2/RT-PCR ([facility]2020-09-25 09:54:00 Test Item Value Reference Range Interpretation Comments SARS-COV2/RT-PCR (test Negative Not Detected, Negative, code = 2839030) See external report for linked test SARS-COV-2 PERFORMING LAB [facility] (test code = 1831668) Negative result for this test determines that SARS-CoV-2 RNA was not present in the specimen above the Limit of Detection (LOD). However, Negative results do not preclude SARS-CoV-2 infection and should not be used as the sole basis for treatment or patient management decisions. Negative results mustbe combined with clinical observations, patient history, and epidemiological information. A false negative result may occur if a specimen is improperly collected, transported or handled. A false negative result should be considered if patient's recent exposures or clinical presentation indicate that COVID-19 (SARS-CoV-2) is likely and diagnostic tests for other causes of illness are negative. Re-testing should be considered in cases of suspected false negatives.The limit of detection for this assay is 800 copies/mL.This SARS CoV-2 test is a real-time RT-PCR test intended for the qualitative detection of nucleic acid from SARS-CoV-2 in a nasopharyngeal swab specimen collected from individuals susp ected of COVID-19 by their healthcare provider.This test has not been Food and Drug Administration (FDA) cleared or approved. This is a modified version of an approved Emergency Use Authorization (EUA) and is in the process of review by the FDA. Once authorized by the FDA, the issued EUA will be effective until the declaration that circumstances exist justifying the authorization of the emergency use of in vitro diagnostic tests for detection and/or diagnosis of COVID-19 is terminated under Section 564(b)(2) of the Act or the EUA is revoked under Section 564(g) of the Act.Fact Sheet for Healthcare Providers:https://www.[employer]/sites/default/files/product/documents/Fact_Shee o_AI_Qzfbkwwip_Qtvd_VHCM-JbO-4.pdfFact Sheet for Healthcare Patients:https://www.[employer]/sites/default/files/product/ documents/Ggcw_Iydde_Efemjntb_Mwwa_PYPR-UbN-7.pdfPerforming Laboratory:[facility], [place] [address]GRR, CHEST, 1 VIEW, NON [id number] 09:53:00Referring: Dr. Yary Eastman/ [place] for exam:- >ALTERED MENTAL STATUSShould this be performed at the bedside?->Yes [facility] : 1955 Sex: MFINAL REPORT INDICATION: ALTERED MENTAL STATUS COMPARISON: July 29, 2020 TECHNIQUE: Single frontal view of the chest. FINDINGS: Lungs and pleura: Scattered interstitial markings. Trace bilateral effusions.Heart and mediastinum: Normal heart size. Stable mediastinal surgical changes.Osseous structures: No acute abnormality.Other: None. IMPRESSION: Mild interstitial coarsening suggesting edema. No lobar consolidation. Signed: JR Rizzo Robert MDReport Verified Date/Time: 09/25/2020 09:53:27 Reading Location: [address] Neuro Reading Room XR chest 1 view portable / [id number] 09:53:00 Interface, External Ris In - 09/25/2020 9:55 AM CDTFINAL REPORT INDICATION: ALTERED MENTAL STATUS COMPARISON: July 29, 2020 TECHNIQUE: Single frontal view of the chest. FINDINGS: Lungs and pleura: Scattered interstitial markings. Trace bilateral effusions.Heart and mediastinu m: Normal heart size. Stable mediastinal surgical changes.Osseous structures: No acute abnormality.Other: None. IMPRESSION: Mild interstitial coarsening suggesting edema. No lobar consolidation. Signed: JR Rizzo Robert MDReport Verified Date/Time: 09/25/2020 09:53:27 Reading Location: [address] Neuro Reading [facility] + Reflex to [id number] 04:36:00 Test Item Value Reference Range Interpretation Comments Color, UA (test Yellow code = 5778-6) Clarity, UA (test Clear code = 5767-9) Specific [place], 1.014 1.001-1.035 UA (test code = 5811-5) pH, UA (test code 6.5 5.0-8.0 = 5803-2) Protein, UA (test Negative Negative code = 34243-5) Glucose, UA (test Negative Negative code = 365) Ketones, UA (test Negative Negative code = 2514-8) Bilirubin, UA Negative Negative (test code = 34073-4) Blood, UA (test Negative Negative code = 59308-1) Nitrite, UA (test Negative Negative code = 5802-4) Leukocytes, UA Negative Negative (test code = 5799-2) Urobilinogen, UA 0.2 mg/dL 0.2-1 (test code = 49623-5) RBC, UA (test code 0 See_Comment [Automat ed = 83183-0) message] The sy stem which generated this result transmitted reference range : /HPF. The refer ence range was not u sed to interpret th is result as normal/abnormal . WBC, UA (test code 1 See_Comment [Automat ed = 5821-4) message] The sy stem which generated this result transmitted reference range : /HPF. The refer ence range was not u sed to interpret th is result as normal/abnormal . Squam Epithel, UA <1 See_Comment [Automate d (test code = message] The sy stem 74997-0) which generated this result transmitted reference range : /HPF. The refer ence range was not u sed to interpret th is result as normal/abnormal . Amorphous Crystals Rare (test code = 42096-9) Specimen Source (test code = 2795) LATRELL (test code = Agricultural Systems Specialist ID - LATRELL) [auto]Agricultural Systems Specialist ID - tech [facility] URINE [id number] 04:36:00 Test Item Value Reference Range Interpretation Comments COLOR (BEAKER) (test code = 470) Yellow CLARITY (BEAKER) (test code = 469) Clear SPECIFIC GRAVITY UA (BEAKER) (test 1.014 1.001-1.035 code = 468) PH UA (BEAKER) (test code = 467) 6.5 5.0-8.0 PROTEIN UA (BEAKER) (test code = [...] (BEAKER) (test code = 520) 1 /HPF SQUAMOUS EPITHELIAL (BEAKER) (test < /HPF code = 516) AMORPHOUS CRYSTALS (BEAKER) (test Rare code = 1584) SOURCE(BEAKER) (test code = 2795) Agricultural Systems Specialist ID - [auto]Agricultural Systems Specialist ID - techHepatic function [id number] 03:24:00 Test Item Value Reference Range Interpretation Comments Protein, Total (test 4.7 See_Comment L [Autom ated code = 2885-2) message] The system which generated this result transmitted reference range : 6.0 - 8.3 gm/dL . The reference range was not used to interpr et this result as normal/abnormal . Albumin (test code = 3.5 g/dL 3.5-5 11382-4) Total Bilirubin (test 2.8 mg/dL 0.2-1.2 H code = 1975-2) Bilirubin, Direct 1.3 mg/dL 0.1-0.5 H (test code = 1968-7) Alkaline Phosphatase 196 U/L 40-150 H (test code = 6768-6) AST (test code = 27 U/L 5-34 1920-8) ALT (test code = 36 U/L 6-55 1742-6) LATRELL (test code = LATRELL) Agricultural Systems Specialist ID - CASEY MSpecimen slightly icteric Lab Interpretation Abnormal (test code = 22649-9) [facility] HospitalBASI METABOLIC [id number] 03:24:00 Test Item Value Reference Range Interpretation Comments SODIUM (BEAKER) 143 meq/L 136-145 (test code = 381) POTASSIUM (BEAKER) 3.6 meq/L 3.5-5.1 (test code = 379) CHLORIDE (BEAKER) 107 meq/L 98-107 (test code = 382) CO2 (BEAKER) (test 23 meq/L 22-29 code = 355) BLOOD UREA NITROGEN 51 mg/dL 7-21 H (BEAKER) (test code = 354) CREATININE (BEAKER) 2.15 mg/dL 0.57-1.25 H (test code = 358) GLUCOSE RANDOM 93 mg/dL 70-105 (BEAKER) (test code = 652) CALCIUM (BEAKER) 8.1 mg/dL 8.4-10.2 L (test code = 697) EGFR (BEAKER) (test 31 mL/min/1.73 ESTIMA ABDULLAHI GFR IS code = 1092) sq m NOT ACCURATE CREATININE CLEARANCE IN PREDICTING GLOMERULAR FILTRATION RATE . ESTIMATED GFR I S NOT APPLICABLE FOR DIALYSIS PATIEN TS. Agricultural Systems Specialist ID - CASEY MSpecimen slightly ictericHEPATIC FUNCTION [id number] 03:24:00 Test Item Value Reference Range Interpretation Comments TOTAL PROTEIN (BEAKER) (test code = 4.7 gm/dL 6.0-8.3 L 770) ALBUMIN (BEAKER) (test code = 1145) 3.5 g/dL 3.5-5.0 BILIRUBIN TOTAL (BEAKER) (test code 2.8 mg/dL 0.2-1.2 H = 377) BILIRUBIN DIRECT (BEAKER) (test 1.3 mg/dL 0.1-0.5 H code = 706) ALKALINE PHOSPHATASE (BEAKER) (test 196 U/L 40-150 H code = 346) AST (SGOT) (BEAKER) (test code = 27 U/L 5-34 353) ALT (SGPT) (BEAKER) (test code = 36 U/L 6-55 347) Agricultural Systems Specialist ID - CASEY MSpecimen slightly [id number] 03:12:00 Test Item Value Reference Range Interpretation Comments Ammonia (test code = 63 See_Comment [Autom ated 14230-9) message] The system which generated this result transmit abdullahi reference range : 18 - 72 mol/L . The reference range was not u sed to interpret th is result as normal/abnormal . LATRELL (test code = LATRELL) Agricultural Systems Specialist ID - CASEY M Lab Interpretation Normal (test code = 90141-4) [facility]2021-03-28 03:12:00 Test Item Value Reference Range Interpretation Comments AMMONIA (BEAKER) (test code = 348) 63 mol/L 18-72 Agricultural Systems Specialist ID - CASEY MPT/pXNW6582-05-22 03:11:00 Test Item Value Reference Interpretation Comments Range Protime (test code = 16.4 See_Comment H [Autom ated 5902-2) message] The system which generated this result transmitted reference range : 11.9 - 14.2 seconds. The reference range was not used to interpret this result as normal/abnormal . INR (test code = 1.36 See_Comment [Automated 5351-6) message] The system which generated this result transmitted reference range : <=5.90. The reference range was not used to interpret this result as normal/abnormal . PTT (test code = 33.7 See_Comment [Automated 56380-4) message] The system which generated this result transmitted reference range : 22.5 - 36.0 seconds. The reference range was not used to interpret this result as normal/abnormal . LATRELL (test code = Effective 11/26/2018: LATRELL) PT Reference Range ChangeNew: 11.9-14.2 Previous: 11.7-14.7 RECOMMENDED COUMADIN/WARFARIN INR THERAPY RANGESSTANDARD DOSE: 2.0-3.0 Includes: PROPHYLAXIS for venous thrombosis, systemic embolization; TREATMENT for venous thrombosis and/or pulmonary embolus.HIGH RISK: Target INR is 2.5-3.5 for patients wiht mechanical heart valves. Lab Interpretation Abnormal (test code = 62366-0) [facility] HospitalPT/[id number] 03:11:00 Test Item Value Reference Range Interpretation Comments PROTIME (BEAKER) (test 16.4 seconds 11.9-14.2 H code = 759) INR (BEAKER) (test 1.36 See_Comment [Automat ed code = 370) message] The sy stem which generated this result transmitted reference range : <=5.90. The reference range was not used to interpret this result as normal/abnormal . PARTIAL THROMBOPLASTIN 33.7 seconds 22.5-36.0 TIME (BEAKER) (test code = 760) Effective 11/26/2018: PT Reference Range ChangeNew: 11.9-14.2 Previous: 11.7- 14.7RECOMMENDED COUMADIN/WARFARIN INR THERAPY RANGESSTANDARD DOSE: 2.0-3.0 Includes: PROPHYLAXIS for venous thrombosis, systemic embolization; TREATMENT for venous thrombosis and/or pulmonary embolus.HIGH RISK: Target INR is2.5-3.5 for patients wiht mechanical heart valves.CBC W/PLT COUNT & AUTO [id number] 03:10:00 Test Item Value Reference Range Interpretation Comments WHITE BLOOD CELL COUNT (BEAKER) 4.8 K/ L 3.5-10.5 (test code = 775) RED BLOOD CELL COUNT (BEAKER) 1.80 M/ L 4.63-6.08 L (test code = 761) HEMOGLOBIN (BEAKER) (test code = 6.4 GM/DL 13.7-17.5 L 410) HEMATOCRIT (BEAKER) (test code = 18.8 % 40.1-51.0 L 411) MEAN CORPUSCULAR VOLUME (BEAKER) 104.4 fL 79.0-92.2 H (test code = 753) MEAN CORPUSCULAR HEMOGLOBIN 35.6 pg 25.7-32.2 H (BEAKER) (test code = 751) MEAN CORPUSCULAR HEMOGLOBIN CONC 34.0 GM/DL 32.3-36.5 (BEAKER) (test code = 752) [...] (test code = 415) EOSINOPHILS ABSOLUTE COUNT 0.15 K/ L 0.04-0.54 (BEAKER) (test code = 416) BASOPHILS ABSOLUTE COUNT (BEAKER) 0.05 K/ L 0.01-0.08 (test code = 417) IMMATURE GRANULOCYTES-RELATIVE 0 % 0-1 PERCENT (BEAKER) (test code = 2801) CT, BRAIN, WITHOUT [id number] 02:42:00Referring: Dr. Yary Eastman/ [place] for exam:->confusionWhat is the patient's sedation requirement?- >No SedationE[facility]HOWER [facility]Name[facility] : 1955 Sex: MFINAL REPORT EXAM: CT head without contrast. CLINICAL HISTORY: Altered mental status. Confusion. COMPARISON: Head CT 07/29/2020. TECHNIQUE: CT images of the head were obtained without intravenous contrast. This exam was performed according to our departmental doseoptimization program which includes automated exposure control, adjustment of the mA and/or kV according to patient's size and/or use of iterative reconstructive technique. FINDINGS: There is no acute intracranial hemorrhage, extra-axial fluid collection, mass effect, herniation, hydrocephalus or large demarcated acute territorial infarct. The basal cisterns are patent. There are bilateral lens replacements. The visualized paranasal sinuses and tympanomastoid cavities are clear. The skull base and calvarium are intact. IMPRESSION: No acute intracranial hemorrhage, mass effect or hydrocephalus.Signed: David Yee Verified Date/Time: 09/25/2020 02:42:37 [facility] without IV [id number] 02:42:00Interface, External Ris In - 09/25/2020 2:44 AM CDTFINAL REPORT EXAM: CT head without contrast. CLINICAL HISTORY: Altered mental status. Confusion. COMPARISON: Head CT 07/29/2020. TECHNIQUE: CT images of the head were obtained without intravenous contrast. This exam was performed according to our departmental dose optimization program which includes automated exposure control, adjustment of the mA and/or kV according to patient's size and/or use of iterative reconstructive technique. FINDINGS: There is no acute intracranial hemorrhage, extra-axial fluid collection, mass effect, herniation, hydrocephalus or large demarcated acute territorial infarct. The basal cisterns arepatent. There are bilateral lens replacements. The visualized paranasal sinuses and tympanomastoid cavities are clear. The skull base and calvarium are intact. IMPRESSION: No acute intracranial hemorrhage, mass effect or hydrocephalus. Signed: David Yee Verified Date/Time: 102:42:37 [facility]sputum[facility]2020-08-15 10:06:00 Test Item Value Reference Range Interpretation Comments Result (test code = No acid-fast bacilli 6463-4) isolated in 42 days AFB Smear (test code = No acid fast bacilli 87888-2) seen [facility] + [facility]MEAR (NON-SPUTUM)2020-08-15 10:06:00 Test Item Value Reference Range Interpretation Comments CULTURE (BEAKER) (test No acid-fast bacilli code = 1095) isolated in 42 days AFB SMEAR (BEAKER) No acid fast bacilli (test code = 994) seen CMV PCR, [id number] 11:20:00 Test Item Value Reference Range Interpretation Comments CMV VIRAL LOAD - Testing per formed at POSITIVE (BEAKER) (test Ques t Diagnostics code = 1557) CMV VIRAL LOAD - Testing per formed at NEGATIVE (BEAKER) (test Ques t Diagnostics code = 2558) CMV PCR, [id number] 11:20:00CMV DNA Viral LoadComment: Testing performed at [facility]ENTERCMV DNA Viral LoadComment: Testing performed at [facility]22[facility] - Routine (Right Venipuncture)2020-08-03 14:00:00 Test Item Value Reference Range Interpretation Comments Result (test code = No growth in 5 days 6463-4) [facility] HospitalBLOOD [id number] 14:00:00 Test Item Value Reference Range Interpretation Comments CULTURE (BEAKER) (test No growth in 5 days code = 1095) BLOOD [id number] 12:00:00 Test Item Value Reference Range Interpretation Comments CULTURE (BEAKER) (test No growth in 5 days code = 1095) BASIC METABOLIC [id number] 06:37:00 Test Item Value Reference Range Interpretation Comments SODIUM (BEAKER) 139 meq/L 136-145 (test code = 381) POTASSIUM (BEAKER) 3.5 meq/L 3.5-5.1 (test code = 379) CHLORIDE (BEAKER) 106 meq/L 98-107 (test code = 382) CO2 (BEAKER) (test 26 meq/L 22-29 code = 355) BLOOD UREA NITROGEN 46 mg/dL 7-21 H (BEAKER) (test code = 354) CREATININE (BEAKER) 1.99 mg/dL 0.57-1.25 H (test code = 358) GLUCOSE RANDOM 91 mg/dL 70-105 (BEAKER) (test code = 652) CALCIUM (BEAKER) 7.8 mg/dL 8.4-10.2 L (test code = 697) EGFR (BEAKER) (test 34 mL/min/1.73 ESTIMA ABDULLAHI GFR IS code = 1092) sq m NOT ACCURATE CREATININE CLEARANCE IN PREDICTING GLOMERULAR FILTRATION RATE . ESTIMATED GFR I S NOT APPLICABLE FOR DIALYSIS PATIEN TS. Agricultural Systems Specialist ID - PIAYA [id number] 06:30:00 Test Item Value Reference Range Interpretation Comments MAGNESIUM (BEAKER) (test code = 2.0 mg/dL 1.6-2.6 627) Agricultural Systems Specialist ID - PIAYA LHEPATIC FUNCTION [id number] 06:30:00 Test Item Value Reference Range Interpretation Comments TOTAL PROTEIN (BEAKER) (test code = 3.5 gm/dL 6.0-8.3 L 770) ALBUMIN (BEAKER) (test code = 1145) 2.5 g/dL 3.5-5.0 L BILIRUBIN TOTAL (BEAKER) (test code 2.0 mg/dL 0.2-1.2 H = 377) BILIRUBIN DIRECT (BEAKER) (test 1.2 mg/dL 0.1-0.5 H code = 706) ALKALINE PHOSPHATASE (BEAKER) (test 244 U/L 40-150 H code = 346) AST (SGOT) (BEAKER) (test code = 32 U/L 5-34 353) ALT (SGPT) (BEAKER) (test code = 30 U/L 6-55 347) Agricultural Systems Specialist ID - PIAYA LPT/[id number] 06:05:00 Test Item Value Reference Range Interpretation Comments PROTIME (BEAKER) (test code = 17.1 seconds 11.9-14.2 H 759) INR (BEAKER) (test code = 370) 1.43 <=5.90 PARTIAL THROMBOPLASTIN TIME 34.2 seconds 22.5-36.0 (BEAKER) (test code = 760) Effective 11/26/2018: PT Reference Range ChangeNew: 11.9-14.2 Previous: 11.7- 14.7RECOMMENDED COUMADIN/WARFARIN INR THERAPY RANGESSTANDARD DOSE: 2.0-3.0 Includes: PROPHYLAXIS for venous thrombosis, systemic embolization; TREATMENT for venous thrombosis and/or pulmonary embolus.HIGH RISK: Target INR is2.5-3.5 for patients wiht mechanical heart valves.CBC W/PLT COUNT & AUTO [id number] 05:55:00 Test Item Value Reference Range Interpretation Comments WHITE BLOOD CELL COUNT (BEAKER) 3.5 K/ L 3.5-10.5 (test code = 775) RED BLOOD CELL COUNT (BEAKER) 2.29 M/ L 4.63-6.08 L (test code = 761) HEMOGLOBIN (BEAKER) (test code = 7.5 GM/DL 13.7-17.5 L 410) HEMATOCRIT (BEAKER) (test code = 22.4 % 40.1-51.0 L 411) MEAN CORPUSCULAR VOLUME (BEAKER) 97.8 fL 79.0-92.2 H (test code = 753) MEAN CORPUSCULAR HEMOGLOBIN 32.8 pg 25.7-32.2 H (BEAKER) (test code = 751) MEAN CORPUSCULAR HEMOGLOBIN CONC 33.5 GM/DL 32.3-36.5 (BEAKER) (test code = 752) RED CELL DISTRIBUTION WIDTH 18.7 % 11.6-14.4 H (BEAKER) (test code = [...] (test code = 431) EOSINOPHILS RELATIVE PERCENT 5 % (BEAKER) (test code = 432) BASOPHILS RELATIVE PERCENT 1 % (BEAKER) (test code = 437) NEUTROPHILS ABSOLUTE COUNT 2.53 K/ L 1.78-5.38 (BEAKER) (test code = 670) LYMPHOCYTES ABSOLUTE COUNT 0.48 K/ L 1.32-3.57 L (BEAKER) (test code = 414) MONOCYTES ABSOLUTE COUNT (BEAKER) 0.29 K/ L 0.30-0.82 L (test code = 415) EOSINOPHILS ABSOLUTE COUNT 0.18 K/ L 0.04-0.54 (BEAKER) (test code = 416) BASOPHILS ABSOLUTE COUNT (BEAKER) 0.02 K/ L 0.01-0.08 (test code = 417) IMMATURE GRANULOCYTES-RELATIVE 0 % 0-1 PERCENT (BEAKER) (test code = 2801) ECG 12 [id number] 13:37:47Interface, External Ris In - 07/31/2020 1:37 PM CSTVentricular Rate 85 BPMAtrial Rate 85 BPMP-R Interval 128 msQRS Duration 90 msQ-T Interval 402 msQTC Calculation(Bazett) 478 msP [place]aker 74 degreesR [place]aker 57 degreesT [place] 59 degreesSinus rhythm with Premature supraventricular complexesNonspecific ST andT wave abnormalityProlonged QTAbnormal ECGWhen compared with ECG of 03-JUL-2020 11:19,Premature supraventricular complexes are now PresentNonspecific T wave abnormality, improved in Anterior leadsQT has lengthenedConfirmed by MD YASMANY, KOKI ([id number]) on 07/31/2020 1:37:[address] [id number] 07:14:00 Test Item Value Reference Range Interpretation Comments MAGNESIUM (BEAKER) (test code = 2.0 mg/dL 1.6-2.6 627) Agricultural Systems Specialist ID - PIAYA LHEPATIC FUNCTION [id number] 07:14:00 Test Item Value Reference Range Interpretation Comments TOTAL PROTEIN (BEAKER) (test code = 3.6 gm/dL 6.0-8.3 L 770) ALBUMIN (BEAKER) (test code = 1145) 2.5 g/dL 3.5-5.0 L BILIRUBIN TOTAL (BEAKER) (test code 3.0 mg/dL 0.2-1.2 H = 377) BILIRUBIN DIRECT (BEAKER) (test 1.3 mg/dL 0.1-0.5 H code = 706) ALKALINE PHOSPHATASE (BEAKER) (test 229 U/L 40-150 H code = 346) AST (SGOT) (BEAKER) (test code = 22 U/L 5-34 353) ALT (SGPT) (BEAKER) (test code = 25 U/L 6-55 347) Agricultural Systems Specialist ID [place] slightly ictericBASIC METABOLIC [id number] 07:14:00 Test Item Value Reference Range Interpretation [...] 697) EGFR (BEAKER) (test 34 mL/min/1.73 ESTIMA ABDULLAHI GFR IS code = 1092) sq m NOT ACCURATE CREATININE CLEARANCE IN PREDICTING GLOMERULAR FILTRATION RATE . ESTIMATED GFR I S NOT APPLICABLE FOR DIALYSIS PATIEN TS. Agricultural Systems Specialist ID - SERGIO Rivera slightly ictericPT/[id number] 06:20:00 Test Item Value Reference Range Interpretation Comments PROTIME (BEAKER) (test code = 17.2 seconds 11.9-14.2 H 759) INR (BEAKER) (test code = 370) 1.46 <=5.90 PARTIAL THROMBOPLASTIN TIME 34.0 seconds 22.5-36.0 (BEAKER) (test code = 760) Effective 11/26/2018: PT Reference Range ChangeNew: 11.9-14.2 Previous: 11.7- 14.7RECOMMENDED COUMADIN/WARFARIN INR THERAPY RANGESSTANDARD DOSE: 2.0-3.0 Includes: PROPHYLAXIS for venous thrombosis, systemic embolization; TREATMENT for venous thrombosis and/or pulmonary embolus.HIGH RISK: Target INR is2.5-3.5 for patients wiht mechanical heart valves.CBC W/PLT COUNT & AUTO [id number] 06:16:00 Test Item Value Reference Range Interpretation Comments WHITE BLOOD CELL COUNT 3.1 K/ L 3.5-10.5 L (BEAKER) (test code = 775) RED BLOOD CELL COUNT 2.24 M/ L 4.63-6.08 L (BEAKER) (test code = 761) HEMOGLOBIN (BEAKER) 7.3 GM/DL 13.7-17.5 L (test code = 410) HEMATOCRIT (BEAKER) 21.6 % 40.1-51.0 L (test code = 411) MEAN CORPUSCULAR 96.4 fL 79.0-92.2 H Discordant MCV VOLUME (BEAKER) (test result s compared to code = 753) previous result s; clinical correl ation required. MEAN CORPUSCULAR 32.6 pg 25.7-32.2 H HEMOGLOBIN (BEAKER) (test code = 751) MEAN CORPUSCULAR 33.8 GM/DL 32.3-36.5 HEMOGLOBIN CONC (BEAKER) (test code = 752) RED CELL DISTRIBUTION 18.6 % 11.6-14.4 H WIDTH (BEAKER) (test code = 412) PLATELET COUNT 52 K/CU MM 150-450 L (BEAKER) (test code = 756) MEAN PLATELET VOLUME 9.9 fL 9.4-12.4 (BEAKER) (test code = 754) NUCLEATED RED BLOOD 1 /100 WBC 0-0 H CELLS (BEAKER) (test code = 413) NEUTROPHILS RELATIVE 73 % PERCENT (BEAKER) (test code = 429) LYMPHOCYTES RELATIVE 15 % PERCENT (BEAKER) (test code = 430) MONOCYTES RELATIVE 7 % PERCENT (BEAKER) (test code = 431) EOSINOPHILS RELATIVE 4 % PERCENT (BEAKER) (test code = 432) BASOPHILS RELATIVE 1 % PERCENT (BEAKER) (test code = 437) NEUTROPHILS ABSOLUTE 2.26 K/ L 1.78-5.38 COUNT (BEAKER) (test code = 670) LYMPHOCYTES ABSOLUTE 0.48 K/ L 1.32-3.57 L COUNT (BEAKER) (test code = 414) MONOCYTES ABSOLUTE 0.22 K/ L 0.30-0.82 L COUNT (BEAKER) (test code = 415) EOSINOPHILS ABSOLUTE 0.12 K/ L 0.04-0.54 COUNT (BEAKER) (test code = 416) BASOPHILS ABSOLUTE 0.02 K/ L 0.01-0.08 COUNT (BEAKER) (test code = 417) IMMATURE 1 % 0-1 GRANULOCYTES-RELATIVE PERCENT (BEAKER) (test code = 2801) Vitamin B12 and [id number] 14:36:00 Test Item Value Reference Range Interpretation Comments Vitamin B12 (test 505 pg/mL 213-816 code = 2132-9) Folate (test code = 32.30 ng/mL See_Comment [Automa abdullahi 2284-8) message] The system which generated this result transmitted reference range : >=7.00. The reference range was not used to interpret this result as normal/abnormal . LATRELL (test code = Agricultural Systems Specialist ID - LATRELL) EDASIOperator ID - EDASI Lab Interpretation Normal (test code = 31431-6) [facility] [id number] 14:36:00 Test Item Value Reference Range Interpretation Comments VITAMIN B12 (BEAKER) (test code = 505 pg/mL 213-816 774) FOLATE (BEAKER) (test code = 362) 32.30 ng/mL >=7.00 Agricultural Systems Specialist ID - EDASIOperator ID - XOABNDdmiowug2702-03-94 14:33:00 Test Item Value Reference Range Interpretation Comments Ferritin (test code = 425.01 ng/mL 5-275 H 2276-4) LATRELL (test code = LATRELL) Agricultural Systems Specialist ID - EDASI Lab Interpretation (test Abnormal code = 83408-3) [facility] 14:33:00 Test Item Value Reference Range Interpretation Comments FERRITIN (BEAKER) (test code = 425.01 ng/mL 5.00-275.00 H 361) Agricultural Systems Specialist ID - EDASITSH/Free T4 If Lrnmuxmbq3432-14-48 14:28:00 Test Item Value Reference Range Interpretation Comments TSH (test code = 4.181 See_Comment [Automated 49533-6) message] The system which generated this result transmit abdullahi reference range : 0.350 - 4.940 uIU/mL. The reference range was not used to interpret this result as normal/abnormal . LATRELL (test code = LATRELL) Agricultural Systems Specialist ID - DB Lab Interpretation Normal (test code = 35316-1) [facility]SH/FREE T4 IF [id number] 14:28:00 Test Item Value Reference Range Interpretation Comments THYROID STIMULATING HORMONE 4.181 uIU/mL 0.350-4.940 (BEAKER) (test code = 772) Agricultural Systems Specialist ID - DBIron, TIBC, % sat. (without ferritin)2020-07-30 13:13:00 Test Item Value Reference Range Interpretation Comments Iron (test code = 2498-4) 90.0 ug/dL 40-160 TIBC (test code = 2500-7) 156 ug/dL 250-450 L Iron % Saturation (test 58 % 20-55 H code = 2502-3) LATRELL (test code = LATRELL) Agricultural Systems Specialist ID - EDASI Lab Interpretation (test Abnormal code = 53093-6) [facility]IR[facility], TIBC, % SAT. (WITHOUT FERRITIN)2020-07-30 13:13:00 Test Item Value Reference Range Interpretation Comments IRON (BEAKER) (test code = 547) 90.0 ug/dL 40.0-160.0 TOTAL IRON BINDING CAPACITY 156 ug/dL 250-450 L (BEAKER) (test code = 769) IRON % SATURATION (2) (BEAKER) 58 % 20-55 H (test code = 2590) Agricultural Systems Specialist ID - EDASIHemoglobin and akzatnnjbx2560-00-20 12:48:00 Test Item Value Reference Range Interpretation Comments Hemoglobin (test code 6.0 See_Comment LL [Auto mated = 786-4) message] The system which generated this result transmit abdullahi reference range : 13.7 - 17.5 GM/ DL. The reference range was not u sed to interpret th is result as normal/abnormal . Hematocrit (test code 18.3 % 40.1-51 L = 4544-3) LATRELL (test code = LATRELL) Agricultural Systems Specialist ID - [id number] Lab Interpretation Abnormal (test code = 63083-2) [facility]HEMOGLOBIN AND [id number] 12:48:00 Test Item Value Reference Range Interpretation Comments HEMOGLOBIN (BEAKER) (test code = 6.0 GM/DL 13.7-17.5 LL 410) HEMATOCRIT (BEAKER) (test code = 18.3 % 40.1-51.0 L 411) Agricultural Systems Specialist ID - 6000U/S, ABDOMINAL, [id number] 09:00:00Referring: Dr. Yary Eastman/ KINA Labs to be ordered:->Body Fluid Culture (w/Gram Stain, C\\T\\S)Labs to be ordered:->Cell Count Reason for exam:->ALTERED MENTAL STATUSCHI [facility]ame: JOEL DESOUZA : 1955 Sex: MFINAL REPORT History: Ascites. PROCEDURE: Limited sonographic ex amination of the abdomen was performed in preparation for planned ultrasound- guided paracentesis. Limited sonographic examination of the abdomen showed no ascites. Therefore, paracentesis was not performed. IMPRESSION: 1. No ascites, not enough for planned paracentesis. Signed: Edmund Barraza Verified Date/Time: 07/30/2020 09:00:16 Reading Location: [facility] P006 Ultrasound Reading Room US abdomen [id number] 09:00:00Interface, External Ris In - 07/30/2020 9:02 AM CSTFINAL REPORT History: Ascites. PROCEDURE: Limited sonographic examination of the abdomen was performed in preparation for planned ultrasound-guided paracentesis. Limited sonographic examination of the abdomen showed no ascites.Therefore, paracentesis was not performed. IMPRESSION: 1. No ascites, not enough for planned paracentesis. Signed: Edmund Barraza Verified Date/Time: 07/30/2020 09:00:16 Reading Location: [facility] [id number] Ultrasound Reading Room [facility] W/PLT COUNT & AUTO [id number] 08:41:00 Test Item Value Reference Range Interpretation Comments WHITE BLOOD CELL COUNT (BEAKER) 3.3 K/ L 3.5-10.5 L (test code = 775) RED BLOOD CELL COUNT (BEAKER) 1.87 M/ L 4.63-6.08 L (test code = 761) HEMOGLOBIN (BEAKER) (test code = 6.4 GM/DL 13.7-17.5 L 410) HEMATOCRIT (BEAKER) (test code = 18.8 % 40.1-51.0 L 411) MEAN CORPUSCULAR VOLUME (BEAKER) 100.5 fL 79.0-92.2 H (test code = 753) MEAN CORPUSCULAR HEMOGLOBIN 34.2 pg 25.7-32.2 H (BEAKER) (test code = 751) MEAN CORPUSCULAR HEMOGLOBIN CONC 34.0 GM/DL 32.3-36.5 (BEAKER) (test code = 752) RED CELL DISTRIBUTION WIDTH 18.6 % 11.6-14.4 H (BEAKER) (test code = 412) PLATELET COUNT (BEAKER) (test code 56 K/CU MM 150-450 L = 756) MEAN PLATELET VOLUME (BEAKER) 9.6 fL 9.4-12.4 (test code = 754) NUCLEATED [...] (test code = 437) NEUTROPHILS ABSOLUTE COUNT 2.34 K/ L 1.78-5.38 (BEAKER) (test code = [...] (BEAKER) (test code = 2801) BASIC METABOLIC [id number] 07:50:00 Test Item Value Reference Range Interpretation Comments SODIUM (BEAKER) 142 meq/L 136-145 (test code = 381) POTASSIUM (BEAKER) 3.7 meq/L 3.5-5.1 (test code = 379) CHLORIDE (BEAKER) 107 meq/L 98-107 (test code = 382) CO2 (BEAKER) (test 24 meq/L 22-29 code = 355) BLOOD UREA NITROGEN 49 mg/dL 7-21 H (BEAKER) (test code = 354) CREATININE (BEAKER) 1.74 mg/dL 0.57-1.25 H (test code = 358) GLUCOSE RANDOM 63 mg/dL 70-105 L (BEAKER) (test code = 652) CALCIUM (BEAKER) 7.7 mg/dL 8.4-10.2 L (test code = 697) EGFR (BEAKER) (test 40 mL/min/1.73 ESTIMA ABDULLAHI GFR IS code = 1092) sq m NOT ACCURATE CREATININE CLEARANCE IN PREDICTING GLOMERULAR FILTRATION RATE . ESTIMATED GFR I S NOT APPLICABLE FOR DIALYSIS PATIEN TS. Agricultural Systems Specialist ID - EDASISpecimen slightly vfmqecvXLQPCKGDW9919-08-22 07:49:00 Test Item Value Reference Range Interpretation Comments MAGNESIUM (BEAKER) (test code = 2.0 mg/dL 1.6-2.6 627) Agricultural Systems Specialist ID - EDASIHEPATIC FUNCTION [id number] 07:49:00 Test Item Value Reference Range Interpretation Comments TOTAL PROTEIN (BEAKER) (test code = 3.8 gm/dL 6.0-8.3 L 770) ALBUMIN (BEAKER) (test code = 1145) 2.7 g/dL 3.5-5.0 L BILIRUBIN TOTAL (BEAKER) (test code 3.3 mg/dL 0.2-1.2 H = 377) BILIRUBIN DIRECT (BEAKER) (test 1.2 mg/dL 0.1-0.5 H code = 706) ALKALINE PHOSPHATASE (BEAKER) (test 218 U/L 40-150 H code = 346) AST (SGOT) (BEAKER) (test code = 26 U/L 5-34 353) ALT (SGPT) (BEAKER) (test code = 29 U/L 6-55 347) Agricultural Systems Specialist ID - EDASISpecimen slightly ictericPT/[id number] 07:38:00 Test Item Value Reference Range Interpretation Comments PROTIME (BEAKER) (test code = 17.5 seconds 11.9-14.2 H 759) INR (BEAKER) (test code = 370) 1.48 <=5.90 PARTIAL THROMBOPLASTIN TIME 33.6 seconds 22.5-36.0 (BEAKER) (test code = 760) Effective 11/26/2018: PT Reference Range ChangeNew: 11.9-14.2 Previous: 11.7- 14.7RECOMMENDED COUMADIN/WARFARIN INR THERAPY RANGESSTANDARD DOSE: 2.0-3.0 Includes: PROPHYLAXIS for venous thrombosis, systemic embolization; TREATMENT for venous thrombosis and/or pulmonary embolus.HIGH RISK: Target INR is2.5-3.5 for patients wiht mechanical heart valves.SARS-CoV2/Influenza/RSV RT-PCR (Symptomatic ONLY)2020-07-29 19:02:00 Test Item Value Reference Range Interpretation Comments SARS-COV2/RT-PCR (test Negative Negative code = 59297-8) Influenza A RT-PCR Negative Negative (test code = 31009-5) Influenza B RT-PCR Negative Negative (test code = 01557-7) RSV by RT-PCR (test Negative Negative Performa nce of the code = 16915-3) Xpert Xpress SARS-CoV-2/Flu/ RSV test has only been established in nasopharyngeal swab specimens. Use of the Xpert Xpress SARS-CoV-2/Flu/ RSV test with other spec imen types has not b een assessed and performance characteristics are unknown. As wi th any molecular test, mutations withi n the targeted geneti c regions identif ied by the Xpert Xpres s SARS-CoV-2/Flu/ RSV test could affect pr mildred and/or probe bi nding resulting in fa ilure to detect the pres ence of virus or the vi baudilio being detected less predictably.Neg ative results do not preclude SARS-CoV-2, Inf luenza A/B, or RSV inf ection and should not be used as the sole bas is for treatment or ot her patient managem ent decisions. Res ults from the Xpert Xpress SARS-CoV-2/Flu/ RSV test should be corre lated with the clinic al history, epidemiological data, and other data available to th e clinician evalu ating the patient. I nvalid test results ma y occur from improper s pecimen collection; mary lure to follow the jennifer mmended sample collecti on, handling, and s torage procedures; rafal hnical error. False ne gative results may occ ur if virus is presen t at levels below th e analytical limi t of detection (LOD: 131 copies/mL). Vi ral nucleic acid ma y persist in vivo , independent of virus viability. Dete ction of analyte target( s) does not imply that the corresponding v irus(es) are infectious or are the causative a gents for clinical sy mptoms. Recent patient exposure to FluMist or other live attenuated influenza vacci artis may cause inaccurat e positive result s.This test has been authorized by [employer] under an EUA for use by authorized laboratories. This test is only au thorized for the duratio n of the declaration nu t circumstances e xist justifying the authorization o f emergency use o f in vitro diagnosti c tests for detection a nd/or diagnosis of CO VID-19 under Section 5 64(b)(1) of the Federal Food, Drug and Cosmet ic Act, 21 U.S.C. 360bbb-3(b)(1), unless the authorizati on is terminated or r evoked sooner. Fact Sh eet for Healthcare Prov iders: https://www.[employer].com /Documents/Xper t%20Xpre ss%67VMDO-KqI-6 -Flu-RSV /302-8135%20Rev .%20B%20 HCP%20Fact%20Sh eet.pdf Fact Sheet for Healthcare Denise ents: https://www.[employer] /Documents/Xper t%20Xpre ss%69NBTF-LtW-9 -Flu-RSV /682-4507%20Rev .%20B%20 Patient%20Fact% 20Sheet. pdf Lab Interpretation Normal (test code = 04778-8) [facility]RSV [id number] 19:02:00 Test Item Value Reference Range Interpretation Comments SARS-COV2/RT-PCR Negative Negative (test code = 4772286) INFLUENZA A RT-PCR Negative Negative (test code = 7054651) INFLUENZA B RT-PCR Negative Negative (test code = 5380535) RSV RT-PCR (test Negative Negative Performanc e of the Xpert code = 6276427) Xpress SARS- CoV-2/Flu/RSV test has only b een established in nasopharyngeal swab specimens. Use of the Xpert Xpress SARS-CoV-2/Flu/ RSV test with other spec imen types has not been as sessed and performance characteristics are unknown. As wi th any molecular test, mutations within the targ eted genetic regions identified by t Xpert Xpress SARS-CoV -2/Flu/RSV test could affe ct primer and/or probe bi nding resulting in fa ilure to detect the pres ence of virus or the vi baudilio being detected less predictably.Neg ative results do not preclude SARS-CoV-2, Inf luenza A/B, or RSV inf ection and should not be u sed as the sole basis for treatment or other patien t management deci sions. Results from e Xpert Xpress SARS-CoV -2/Flu/RSV test should be correlated with the clinic al history, epidem iological data, and other data available to e clinician evalu ating the patient. Inval id test results may occ ur from improper specim en collection; mary lure to follow the jennifer mmended sample collecti on, handling, and s torage procedures; rafal hnical error. False ne gative results may occ ur if virus is presen t at levels below e analytical limi t of detection (LOD: 131 copies/mL). Vi ral nucleic acid ma y persist in vivo, indepe ndent of virus viability . Detection of an alyte target(s) does not imply that the corres ponding virus(es) are i nfectious or are the caus ative agents for clin ical symptoms. Rece nt patient exposure to Flu Mist or other live atte nuated influenza vacci artis may cause inaccurat e positive results.This te st has been authorized by FDA under an EUA fo r use by authorized labo ratories. This test is on ly authorized for the duration of the declaration nu t circumstances e xist justifying the authorization o f emergency use o f in vitro diagnostic test s for detection and/o r diagnosis of CO VID-19 under Section 5 64(b)(1) of the Federal Food, Drug and Cosmetic Ac t, 21 U.S.C. 360bbb -3(b)(1), unless the auth orization is terminated o r revoked sooner.Fact She et for Healthcare Prov iders: https://www.[employer]/D ocuments/Xpert% 20Xpress%2 1CWDR-ZoK-1-Flu -RSV/302-4 508%20Rev.%20B% 20HCP%20Fa ct%20Sheet.pdfF act Sheet for Healthcare Patients: https://www.[employer]/D ocuments/Xpert% 20Xpress%2 5VAVQ-IvW-0-Flu -RSV/302-4 507%20Rev.%20B% 20Patient% 20Fact%20Sheet. pdf Protein, random [id number] 16:42:00 Test Item Value Reference Range Interpretation Comments Protein, Urine (test code = 11 mg/dL 0-14 2888-6) LATRELL (test code = LATRELL) Agricultural Systems Specialist ID - DB Lab Interpretation (test Normal code = 59759-3) [facility], random [id number] 16:42:00 Test Item Value Reference Range Interpretation Comments Sodium Urine (test 37 meq/L code = 2955-3) LATRELL (test code = Reference Range: No LATRELL) NormalsOperator ID - DB [facility]PROTEIN, RANDOM [id number] 16:42:00 Test Item Value Reference Range Interpretation Comments PROTEIN, URINE (BEAKER) (test code = 11 mg/dL 0-14 1569) Agricultural Systems Specialist ID - DBSODIUM, RANDOM [id number] 16:42:00 Test Item Value Reference Range Interpretation Comments SODIUM URINE (BEAKER) (test code = 37 meq/L 243) Reference Range: No NormalsOperator ID - DBUrea Nitrogen, random [id number] 14:39:00 Test Item Value Reference Range Interpretation Comments Urea Nitrogen, Ur 681 mg/dL (test code = 3095-7) LATRELL (test code = Reference Range: No LATRELL) NormalsOperator ID - SAMY Gutierrez [facility] HospitalUREA NITROGEN, RANDOM [id number] 14:39:00 Test Item Value Reference Range Interpretation Comments UREA NITROGEN URINE (BEAKER) (test 681 mg/dL code = 538) Reference Range: No NormalsOperator ID - SAMY MChloride, random urine 2020-07-29 14:38:00 Test Item Value Reference Range Interpretation Comments ChlorideUr (test 26 meq/L code = 76117-8) LATRELL (test code = Reference Range: No LATRELL) NormalsOperator ID - SAMY [facility] [id number] 14:38:00 Test Item Value Reference Range Interpretation Comments Creatinine, Ur 82.1 mg/dL (test code = 2161-8) LATRELL (test code = Reference Range: No LATRELL) NormalsOperator ID - SAMY [facility] HospitalPotassium, random [id number] 14:38:00 Test Item Value Reference Range Interpretation Comments Potassium Urine 49.1 meq/L (test code = 2828-2) LATRELL (test code = Reference Range: No LATRELL) NormalsOperator ID - SAMY Gutierrez [facility] HospitalCHLORIDE, RANDOM [id number] 14:38:00 Test Item Value Reference Range Interpretation Comments CHLORIDE URINE (BEAKER) (test code = 26 meq/L 682) Reference Range: No NormalsOperator ID - SAMY MCREATININE, RANDOM URINE 2020-07-29 14:38:00 Test Item Value Reference Range Interpretation Comments CREATININE URINE (BEAKER) (test 82.1 mg/dL code = 375) Reference Range: No NormalsOperator ID - SAMY MPOTASSIUM, RANDOM URINE 2020-07-29 14:38:00 Test Item Value Reference Range Interpretation Comments POTASSIUM URINE (BEAKER) (test 49.1 meq/L code = 195) Reference Range: No NormalsOperator ID - SAMY MUrinalysis w/Microscopic 2020-07-29 13:42:00 Test Item Value Reference Range Interpretation Comments Color, UA (test Yellow code = 5778-6) Clarity, UA (test Clear code = 5767-9) Specific [place], 1.015 1.001-1.035 UA (test code = 5811-5) pH, UA (test code 6.0 5.0-8.0 = 5803-2) Protein, UA (test Negative Negative code = 49423-7) Glucose, UA (test Negative Negative code = 365) Ketones, UA (test Negative Negative code = 2514-8) Bilirubin, UA Negative Negative (test code = 44394-3) Blood, UA (test Negative Negative code = 98513-2) Nitrite, UA (test Negative Negative code = 5802-4) Leukocytes, UA Negative Negative (test code = 5799-2) Urobilinogen, UA 0.2 mg/dL 0.2-1 (test code = 69674-4) RBC, UA (test 0 See_Comment [Automated me ssage] code = 57131-9) The system [facility] generated this result transmit abdullahi reference range : /HPF. The refer ence range was not u sed to interpret th is result as normal/abnormal . WBC, UA (test 1 See_Comment [Automated me ssage] code = 5821-4) The system [facility] generated this result transmit abdullahi reference range : /HPF. The refer ence range was not u sed to interpret th is result as normal/abnormal . Specimen Source (test code = 2795) LATRELL (test code = Agricultural Systems Specialist ID - LATRELL) [auto]Agricultural Systems Specialist ID - [auto] [facility] [id number] 13:42:00 Test Item Value Reference Range Interpretation Comments Osmolality, Ur (test code 434 See_Comment [ Automated message] = 2695-5) The system [facility] generated this result transmitted ref erence range: 50-1,200 mOsm/kg mOsm/kg . The reference range was not used to int erpret this result as normal/abnormal . Lab Interpretation (test Normal code = 97792-0) [facility], [id number] 13:42:00 Test Item Value Reference Range Interpretation Comments OSMOLALITY URINE (BEAKER) (test 434 mOsm/kg 50-1,200 mOsm/kg code = 614) URINALYSIS W/ [id number] 13:42:00 Test Item Value Reference Range Interpretation Comments COLOR (BEAKER) (test code = 470) Yellow CLARITY (BEAKER) (test code = 469) Clear SPECIFIC GRAVITY UA (BEAKER) (test 1.015 1.001-1.035 code = 468) PH UA (BEAKER) (test code = 467) 6.0 5.0-8.0 PROTEIN UA (BEAKER) (test code = [...] (BEAKER) (test code = 520) 1 /HPF SOURCE(BEAKER) (test code = 2795) Agricultural Systems Specialist ID - [auto]Agricultural Systems Specialist ID - [auto]Lactic acid, [id number] 13:02:00 Test Item Value Reference Range Interpretation Comments Lactate, Venous (test 1.84 mmol/L 0.5-2.2 code = 2872) LATRELL (test code = LATRELL) Agricultural Systems Specialist ID - EDASISpecimen slightly icteric Lab Interpretation Normal (test code = 99341-2) [facility] HospitalLACTIC ACID, [id number] 13:02:00 Test Item Value Reference Range Interpretation Comments LACTATE BLOOD VENOUS (2) (BEAKER) 1.84 mmol/L 0.50-2.20 (test code = 2872) Agricultural Systems Specialist ID - EDASISpecimen slightly ictericRAD, CHEST, 1 VIEW, NON DEPT 2020-07-29 12:11:00Referring: Dr. Yary Eastman/ [place] for exam:- >ALTERED MENTAL STATUSShould this be performed at the bedside?->Yes [facility] : 1955 Sex: MFINAL REPORT CLINICAL HISTORY: ALTERED MENTAL STATUS TECHNIQUE: 1 view of the chest. COMPARISON: 07/04/2020 IMPRESSION: There is vaguely increased opacity projectingover the right lung zone, but no focal lobar consolidation at this time. There are trace bilateral pleural effusions. The cardiomediastinal silhouette is magnified by technique with sternotomy wires. Signed: Jad Isaac Verified Date/Time: 07/29/2020 12:11:10 Reading Location: [facility] Radiology Reading Room Troponin I (not available at [facility] [place]) 2020-07-29 11:30:00 Test Item Value Reference Range Interpretation Comments Troponin I (test code = <0.01 0-0.03 86778-4) LATRELL (test code = LATRELL) Troponin I [...] failure, acidosis, acute neurological disease, and persistent tachyarrhythmia.Nya alexia JOHNSON - SAMY Matt Lab Interpretation (test Normal code = 86975-1) [facility] HospitalTROPONIN [id number] 11:30:00 Test Item Value Reference Range Interpretation [...] failure, acidosis, acute neurological disease, and persistent tachyarrhythmia.Agricultural Systems Specialist ID [place] PABLO MBASIC METABOLIC [id number] 11:26:00 Test Item Value Reference Range Interpretation Comments SODIUM (BEAKER) 145 meq/L 136-145 (test code = 381) POTASSIUM (BEAKER) 4.2 meq/L 3.5-5.1 (test code = 379) CHLORIDE (BEAKER) 106 meq/L 98-107 (test code = 382) CO2 (BEAKER) (test 27 meq/L 22-29 code = 355) BLOOD UREA NITROGEN 54 mg/dL 7-21 H (BEAKER) (test code = 354) CREATININE (BEAKER) 2.15 mg/dL 0.57-1.25 H (test code = 358) GLUCOSE RANDOM 116 mg/dL 70-105 H (BEAKER) (test code = 652) CALCIUM (BEAKER) 8.7 mg/dL 8.4-10.2 (test code = 697) EGFR (BEAKER) (test 31 mL/min/1.73 ESTIMA ABDULLAHI GFR IS code = 1092) sq m NOT ACCURATE CREATININE CLEARANCE IN PREDICTING GLOMERULAR FILTRATION RATE . ESTIMATED GFR I S NOT APPLICABLE FOR DIALYSIS PATIEN TS. Agricultural Systems Specialist ID [place] PABLO MSpecimen slightly ictericHEPATIC FUNCTION [id number] 11:26:00 Test Item Value Reference Range Interpretation Comments TOTAL PROTEIN (BEAKER) (test code = 4.8 gm/dL 6.0-8.3 L 770) ALBUMIN (BEAKER) (test code = 1145) 3.4 g/dL 3.5-5.0 L BILIRUBIN TOTAL (BEAKER) (test code 3.7 mg/dL 0.2-1.2 H = 377) BILIRUBIN DIRECT (BEAKER) (test 1.7 mg/dL 0.1-0.5 H code = 706) ALKALINE PHOSPHATASE (BEAKER) (test 279 U/L 40-150 H code = 346) AST (SGOT) (BEAKER) (test code = 25 U/L 5-34 353) ALT (SGPT) (BEAKER) (test code = 34 U/L 6-55 347) Agricultural Systems Specialist ID - SAMY MSpecimen slightly ictericPROTHROMBIN TIME/[id number] 11:23:00 Test Item Value Reference Range Interpretation Comments PROTIME (BEAKER) (test code = 15.9 seconds 11.9-14.2 H 759) INR (BEAKER) (test code = 370) 1.31 <=5.90 Effective 11/26/2018: PT Reference Range ChangeNew: 11.9-14.2 Previous: 11.7- 14.7RECOMMENDED COUMADIN/WARFARIN INR THERAPY RANGESSTANDARD DOSE: 2.0-3.0 Includes: PROPHYLAXIS for venous thrombosis, systemic embolization; TREATMENT for venous thrombosis and/or pulmonary embolus.HIGH RISK: Target INR is2.5-3.5 for patients wiht mechanical heart valves.LACTIC ACID, [id number] 11:20:00 Test Item Value Reference Range Interpretation Comments LACTATE BLOOD VENOUS (2) (BEAKER) 2.31 mmol/L 0.50-2.20 H (test code = 2872) Agricultural Systems Specialist ID - SAMY MSpecimen slightly [id number] 11:16:00 Test Item Value Reference Range Interpretation Comments AMMONIA (BEAKER) 52 mol/L 18-72 Specimen sl ightly (test code = 348) hemolyzed Agricultural Systems Specialist ID - SAMY MCT, BRAIN, WITHOUT [id number] 11:14:00Referring: Dr. Yary Eastman/ [place] for exam:->ALTERED MENTAL STATUSWhat is the patient's sedation requirement?->No Sedation [facility] : 1955 Sex: MFINAL REPORT CT, BRAIN, WITHOUT CONTRAST CLINICAL INDICATION: U nlisted Reason for ExamALTERED MENTAL STATUS COMPARISON: July 03, 2020 TECHNIQUE: Noncontrast axial CT imaging of the brain and skull. DOSE REDUCTION: Dose modulation, iterative reconstruction, and/or weight-based adjustment of the mA/kV was utilized to reduce the radiation dose to as low as reasonably achievable. FINDINGS:No intracranial hemorrhage, midline shift or mass effect. Midline structures are normally developed. Mild chronic microvascular ischemic changes of the periventricular and subcortical white matter are present. No hydrocephalus. Orbits are within normal limits. No obstructive paranasal sinus disease. IMPRESSION: No acute intracranial findings If there is persistent clinical concern for intracranial pathology, MR examination is recommended for further characterization. Signed: Fitz Fernandez MDReport Verified Date/Time: 07/29/2020 11:14:58 Reading Location: [address] Neuro Reading Room CBC W/PLT COUNT & AUTO [id number] 11:12:00 Test Item Value Reference Range Interpretation Comments WHITE BLOOD CELL COUNT (BEAKER) 7.0 K/ L 3.5-10.5 (test code = 775) RED BLOOD CELL COUNT (BEAKER) 2.44 M/ L 4.63-6.08 L (test code = 761) HEMOGLOBIN (BEAKER) (test code = 8.3 GM/DL 13.7-17.5 L 410) HEMATOCRIT (BEAKER) (test code = 25.1 % 40.1-51.0 L 411) MEAN CORPUSCULAR VOLUME (BEAKER) 102.9 fL 79.0-92.2 H (test code = 753) MEAN CORPUSCULAR HEMOGLOBIN 34.0 pg 25.7-32.2 H (BEAKER) (test code = 751) MEAN CORPUSCULAR HEMOGLOBIN CONC 33.1 GM/DL 32.3-36.5 (BEAKER) (test code = 752) RED CELL DISTRIBUTION WIDTH 18.9 % 11.6-14.4 H (BEAKER) (test code = 412) PLATELET COUNT (BEAKER) (test code 84 K/CU MM 150-450 L = 756) MEAN PLATELET VOLUME (BEAKER) 9.5 fL 9.4-12.4 (test code = 754) NUCLEATED RED BLOOD CELLS (BEAKER) 0 /100 WBC 0-0 (test code = 413) NEUTROPHILS RELATIVE PERCENT 79 % (BEAKER) (test code = 429) LYMPHOCYTES RELATIVE PERCENT 10 % (BEAKER) (test code = 430) MONOCYTES RELATIVE PERCENT 8 % (BEAKER) (test code = 431) EOSINOPHILS RELATIVE PERCENT 2 % (BEAKER) (test code = 432) BASOPHILS RELATIVE PERCENT 1 % (BEAKER) (test code = 437) NEUTROPHILS ABSOLUTE COUNT 5.54 K/ L 1.78-5.38 H (BEAKER) (test code = 670) LYMPHOCYTES ABSOLUTE COUNT 0.71 K/ L 1.32-3.57 L (BEAKER) (test code = 414) MONOCYTES ABSOLUTE COUNT (BEAKER) 0.55 K/ L 0.30-0.82 (test code = 415) EOSINOPHILS ABSOLUTE COUNT 0.14 K/ L 0.04-0.54 (BEAKER) (test code = 416) BASOPHILS ABSOLUTE COUNT (BEAKER) 0.08 K/ L 0.01-0.08 (test code = 417) IMMATURE GRANULOCYTES-RELATIVE 0 % 0-1 PERCENT (BEAKER) (test code = 2801) Blood gas, [id number] 11:04:00 Test Item Value Reference Range Interpretation Comments pH, Robbie (test code = 7.40 7.32-7.42 2746-6) pCO2, Robbie (test code = 48 See_Comment [Aut omated message] 515) The system AMS-Qi generated this result transmit abdullahi reference range : 41 - 51 mm Hg. The reference range was not used to interpret this result as normal/abnormal . pO2, Robbie (test code = 26 See_Comment [Auto mated message] 1986-2) The system [employer] generated this result transmit abdullahi reference range : 25 - 40 mm Hg. The reference range was not used to interpret this result as normal/abnormal . O2 Sat, Robbie (test code 47.3 % 40-70 = 2711-0) HCO3, Robbie (test code = 29 mmol/L 21-29 62677-0) Base Excess, Robbie (test 3.6 mmol/L -2-3 H code = 1927-3) Patient Temperature 37.0 (test code = 8310-5) FIO2 (test code = 1819) 21 Lab Interpretation Abnormal (test code = 16644-0) [facility], [id number] 11:04:00 Test Item Value Reference Range Interpretation Comments PH VENOUS (BEAKER) (test code = 7.40 7.32-7.42 701) PCO2 VENOUS (BEAKER) (test code = 48 mm Hg 41-51 755) PO2 VENOUS (BEAKER) (test code = 26 mm Hg 25-40 702) O2 SATURATION VENOUS (BEAKER) 47.3 % 40.0-70.0 (test code = 703) HCO3 VENOUS (BEAKER) (test code = 29 mmol/L 21-29 705) BASE EXCESS VENOUS (BEAKER) (test 3.6 mmol/L -2.0-3.0 H code = 704) PATIENT TEMPERATURE (BEAKER) (test 37.0 code = 1818) FIO2 (BEAKER) (test code = 1819) 21.0 POC-Glucose [id number] 10:23:00 Test Item Value Reference Range Interpretation Comments POC-Glucose Meter (test 114 mg/dL 70-110 H : TE STED AT [facility] code = 1538) [address] [facility], 770 30: Agricultural Systems Specialist/Techni demetrice ID = [id number] for [employer]Z [employer] Lab Interpretation (test Abnormal code = 49601-4) [facility] HospitalPOCT-GLUCOSE [id number] 10:23:00 Test Item Value Reference Range Interpretation Comments POC-GLUCOSE METER 114 mg/dL 70-110 H : TESTED A T [facility] 6720 (BEAKER) (test code = [facility], 1538) [address]: Agricultural Systems Specialist/Techni demetrice ID = [id number] for FITZ HOLDEN [id number] 00:00:00Ordered by an unspecified provider.[facility] HospitalFungus culture + [id number] 23:36:00 Test Item Value Reference Range Interpretation Comments Result (test code = No fungus isolated in 6463-4) 28 days Fungus Smear (test No fungi seen code = 1406) [facility] C[facility]URE + [id number] 23:36:00 Test Item Value Reference Range Interpretation Comments CULTURE (BEAKER) (test No fungus isolated in code = 1095) 28 days FUNGUS SMEAR (BEAKER) No fungi seen (test code = 1406) CBC with platelet count + automated [id number] 08:37:00 Test Item Value Reference Interpretation Comments Range WBC (test code = 5.2 See_Comment [Automated message] ) The system [employer] generated this result transmitted ref erence range: 3.4 - 10 .8 x10E3/uL. The r eference range was not u sed to interpret this result as normal/abnor mal. RBC (test code = 2.26 See_Comment LL Polychromas ia 789-8) presentElliptoc ytes present. [Auto mated message] The sy stem which generated this result transmit abdullahi reference range : 4.14 - 5.80 x10E6/uL. The reference range was not used to interpr et this result as normal/abnormal . Hemoglobin (test 7.4 g/dL 13-17.7 L code = ) Hematocrit (test 21.6 % 37.5-51 L code = ) MCV (test code = 96 fL 79-97 ) MCH (test code = 32.7 pg 26.6-33 ) MCHC (test code = 34.3 g/dL 31.5-35.7 ) RDW (test code = 17.8 % 11.6-15.4 H ) Platelets (test 76 See_Comment LL Platelet cou nt verified code = ) by examinati on of peripheral bloo d smear.Decreased . [Automated mess age] The system which ge nerated this result tra nsmitted reference range : 150 - 450 x10E3/uL. T he reference range was not used to interpr et this result as normal/abnormal . % Neutros (test 76 % Not Estab. code = ) % Lymphs (test code 14 % Not Estab. = ) % Monos (test code 6 % Not Estab. = ) % Eos (test code = 3 % Not Estab. ) % Baso (test code = 1 % Not Estab. ) # Neutros (test 4.0 See_Comment [Automated message] code = ) The system [facility] generated this result transmitted ref erence range: 1.4 - 7. 0 x10E3/uL. The r eference range was not u sed to interpret this result as normal/abnor mal. # Lymphs (test code 0.7 See_Comment [Automa abdullahi message] = ) The system AMS-Qi generated this result transmitted ref erence range: 0.7 - 3. 1 x10E3/uL. The r eference range was not u sed to interpret this result as normal/abnor mal. # Monos (test code 0.3 See_Comment [Automat ed message] = ) The system AMS-Qi generated this result transmitted ref erence range: 0.1 - 0. 9 x10E3/uL. The r eference range was not u sed to interpret this result as normal/abnor mal. # Eos (test code = 0.2 See_Comment [Automat ed message] ) The system AMS-Qi generated this result transmitted ref erence range: 0.0 - 0. 4 x10E3/uL. The r eference range was not u sed to interpret this result as normal/abnor mal. Baso (Absolute) 0.1 See_Comment [Automated message] (test code = The system AMS-Qi ) generated this result transmitted ref erence range: 0.0 - 0. 2 x10E3/uL. The r eference range was not u sed to interpret this result as normal/abnor mal. % Immature Grans 0 % Not Estab. (test code = ) # Immature Grans 0.0 See_Comment [Automated message] (test code = The system AMS-Qi ) generated this result transmitted ref erence range: 0.0 - 0. 1 x10E3/uL. The r eference range was not u sed to interpret this result as normal/abnor mal. Hematology Note: Verified by [facility] roscopic Comments: (test examination. code = ) LATRELL (test code = Performed at: [facility]) [address] [place] [id number] Director: Ortega Santiago MD, Phone: [phone] Lab Interpretation Abnormal (test code = 16356-6) [facility] HospitalAlpha fetoprotein (AFP), tumor [id number] 08:37:00 Test Item Value Reference Interpretation Comments Range AFP, Serum, 2.6 ng/mL 0-8.3 [facility] Tumor Marker Electrochemilum inescence (test code = Immunoassay (EC YAMIL)Values ) obtained with d ifferent assay methods or kits cannot beused interchangeably . Results cannot be inter preted as absoluteevidenc e of the presence or abs ence of malignant disea se.This test is not interpre table in female s. LATRELL (test Performed at: code = LATRELL) - [facility] [id number] Director: Ortega Santiago MD, Phone: [phone] [facility] HospitalBody fluid culture + gram [id number] 11:14:00 Test Item Value Reference Range Interpretation Comments Result (test code = 6463-4) No growth Gram Stain Result (test No organisms seen code = 1123) [facility] HospitalBODY FLUID CULTURE + GRAM [id number] 11:14:00 Test Item Value Reference Range Interpretation Comments CULTURE (BEAKER) (test code No growth = 1095) GRAM STAIN RESULT (BEAKER) <1+ WBCs (test code = 1123) GRAM STAIN RESULT (BEAKER) No organisms seen (test code = 09908) U/S, [id number] 22:47:00Referring: Dr. Yary Eastman/ Beto to be ordered:->Cell CountLabs to be ordered:->Body Fluid Culture (w/Gram Stain, C\\T\\S)Reason for exam:->ascites [facility] : 1955 Sex: MFINAL REPORT Ultrasound guided paracentesis Clinical History: A scites. Sedation: None. Microfilm Duplicating Unit Supervisor: Aure Huerta PA-C Supervising Physician: Denilson Liao MD Rrt: None. Estimated Blood Loss: < 1 mL. Specimen: 3000 mL of clear yellow fluid, samples sent to laboratory. Technique: Informed consent was obtained. The risks of pain, b leeding, infection, bowel perforation, injury to adjacent structures, [...] anesthesia was achieved with lidocaine, a 5 [place] one-step catheter was advanced into the peritoneal cavity under ultrasound guidance. After completion of drainage, the catheterwas removed. There was no evidence of complication. Impression:Successful ultrasound guided paracentesis. Signed: Denilson Liao MDReport Verified Date/Time: 07/08/2020 22:47:46 Reading Location: [address] Ultrasound Reading Room US [id number] 22:47:00Interface, External Ris In - 07/08/2020 10:50 PM CSTFINAL REPORT Ultrasound guided paracentesis Clinical History: Ascites. Sedation: None. Microfilm Duplicating Unit Supervisor: Aure Huerta PA-C Supervising Physician: Denilson Liao MD Rrt: None. Estimated Blood Loss: <1 mL. Specimen: 3000 mL of clear yellow fluid, samples sent [...] blood vessels traversing the area, the skin wasprepped and draped in the usual sterile manner. After local anesthesia was achieved with lidocaine,a 5 [place] one-step catheter was advanced into the peritoneal cavity under ultrasound guidance. After completion of drainage, the catheter was removed. There was no evidence of complication. Impression:Successful ultrasound guided paracentesis. Signed: Denilson Liao Verified Date/Time: 07/08/2020 22:47:46 Reading Location: [address] Ultrasound Reading [facility] [id number] 14:01:00 Test Item Value Reference Range Interpretation Comments CULTURE (BEAKER) (test No growth in 5 days code = 1095) BLOOD [id number] 13:02:00 Test Item Value Reference Range Interpretation Comments CULTURE (BEAKER) (test No growth in 5 days code = 1095) TACROLIMUS [id number] 11:01:00 Test Item Value Reference Range Interpretation Comments TACROLIMUS BLOOD 3.4 ng/mL 10.0-20.0 L Test perfor med on Colon (BEAKER) (test code Architec t Immunoassay = 657) system with Chemiluminescen t Microparticle I mmunoassay (CMIA) marisaolo Agricultural Systems Specialist ID - MARCELLE FCOMPREHENSIVE METABOLIC [id number] 07:32:00 Test Item Value Reference Range Interpretation Comments TOTAL PROTEIN 3.6 gm/dL 6.0-8.3 L Specimen sligh tly (BEAKER) (test code = hemoly zed 770) ALBUMIN (BEAKER) 2.6 g/dL 3.5-5.0 L Specimen sl ightly (test code = 1145) hemolyzed ALKALINE PHOSPHATASE 231 U/L 40-150 H (BEAKER) (test code = 346) BILIRUBIN TOTAL 1.9 mg/dL 0.2-1.2 H Specimen sli ghtly (BEAKER) (test code = hemoly zed 377) SODIUM (BEAKER) (test 138 meq/L 136-145 code = 381) POTASSIUM (BEAKER) 3.8 meq/L 3.5-5.1 Specimen slightly (test code = 379) hemolyzed CHLORIDE (BEAKER) 105 meq/L 98-107 (test code = 382) CO2 (BEAKER) (test 25 meq/L 22-29 code = 355) BLOOD UREA NITROGEN 29 mg/dL 7-21 H (BEAKER) (test code = 354) CREATININE (BEAKER) 1.68 mg/dL 0.57-1.25 H Specimen slightly (test code = 358) hemolyzed GLUCOSE RANDOM 75 mg/dL 70-105 (BEAKER) (test code = 652) CALCIUM (BEAKER) 8.2 mg/dL 8.4-10.2 L (test code = 697) AST (SGOT) (BEAKER) 39 U/L 5-34 H Specimen slightly (test code = 353) hemolyzed ALT (SGPT) (BEAKER) 27 U/L 6-55 Specimen slightly (test code = 347) hemolyzed EGFR (BEAKER) (test 42 mL/min/1.73 ESTIMA ABDULLAHI GFR IS code = 1092) sq m NOT ACCURATE CREATININE CLEARANCE IN PREDICTING GLOMERULAR FILTRATION RATE . ESTIMATED GFR I S NOT APPLICABLE FOR DIALYSIS PATIEN TS. Agricultural Systems Specialist ID - CASEY MCBC W/PLT COUNT & AUTO [id number] 06:57:00 Test Item Value Reference Range Interpretation Comments WHITE BLOOD CELL COUNT (BEAKER) 4.0 K/ L 3.5-10.5 (test code = 775) RED BLOOD CELL COUNT (BEAKER) 2.33 M/ L 4.63-6.08 L (test code = 761) HEMOGLOBIN (BEAKER) (test code = 7.5 GM/DL 13.7-17.5 L 410) HEMATOCRIT (BEAKER) (test code = 22.2 % 40.1-51.0 L 411) MEAN CORPUSCULAR VOLUME (BEAKER) 95.3 fL 79.0-92.2 H (test code = 753) MEAN CORPUSCULAR HEMOGLOBIN 32.2 pg 25.7-32.2 (BEAKER) (test code = 751) MEAN CORPUSCULAR HEMOGLOBIN CONC 33.8 GM/DL 32.3-36.5 (BEAKER) (test code = 752) RED CELL DISTRIBUTION WIDTH 18.9 % 11.6-14.4 H (BEAKER) (test code = 412) PLATELET COUNT (BEAKER) (test code 49 K/CU MM 150-450 L = 756) MEAN PLATELET VOLUME (BEAKER) 11.3 fL 9.4-12.4 (test code = 754) NUCLEATED RED BLOOD CELLS (BEAKER) 0 /100 WBC 0-0 (test code = 413) NEUTROPHILS RELATIVE PERCENT 75 % (BEAKER) (test code = 429) LYMPHOCYTES RELATIVE PERCENT 13 % (BEAKER) (test code = 430) MONOCYTES RELATIVE PERCENT 6 % (BEAKER) (test code = 431) EOSINOPHILS RELATIVE PERCENT 5 % (BEAKER) (test code = 432) BASOPHILS RELATIVE PERCENT 1 % (BEAKER) (test code = 437) NEUTROPHILS ABSOLUTE COUNT 3.01 K/ L 1.78-5.38 (BEAKER) (test code = 670) LYMPHOCYTES ABSOLUTE COUNT 0.52 K/ L 1.32-3.57 L (BEAKER) (test code = 414) MONOCYTES ABSOLUTE COUNT (BEAKER) 0.24 K/ L 0.30-0.82 L (test code = 415) EOSINOPHILS ABSOLUTE COUNT 0.19 K/ L 0.04-0.54 (BEAKER) (test code = 416) BASOPHILS ABSOLUTE COUNT (BEAKER) 0.04 K/ L 0.01-0.08 (test code = 417) IMMATURE GRANULOCYTES-RELATIVE 1 % 0-1 PERCENT (BEAKER) (test code = 2801) U/S, ABDOMINAL, [id number] 19:29:00Referring: Dr. Yary Eastman/ KINA doppler for TIPS assessment Reason for exam:->doppler for TIPS assessment [facility] : 1955 Sex: MFINAL REPORT TECHNIQUE: Grayscale ultrasound of the abdomen with color Doppler and spectral Doppler ultrasound of the portal/hepatic vasculature. INDICATION: doppler for TIPS assessment. COMPARISON: 04/26/2020. FINDINGS: LIVER: Nodular and cirrhotic liver contour.No focal liver lesions. HEPATIC VASCULATURE: Portal veins are patent with normal waveform and directionality. Flow velocity in the main portal vein is within normal limits. The hepatic arteries are patent with normal flow velocities, resistive indices, and waveforms. The hepatic veins and confluence are patent. The main portal vein measures 1.6 cm. TIPS is patent with intrastent velocities which range between 108-148 cm/s. BILIARY:Gallbladder: Shadowing gallstones are present within the gallbladder. Gallbladder wall is thickened to 0.6 cm which is nonspecific in the setting of cirrhosis. No gallbladder wall thickening, pericholecystic fluid, or distention. Negative sonographic Baltazar sign.Commonbile duct measures 0.4 cm, within normal limits. No intrahepatic biliary ductal dilatation. PANCREAS: Incompletely visualized due to overlying bowel gas. SPLEEN: Mild splenomegaly. The spleen measures 15.2 cm PERITONEUM: Small volume free fluid. KIDNEYS: Right kidney has measurements of 8.6 x 3.4 x by 4.2 cm and the left kidney has measurements 9.7 x 3.7 x 4.1 cm. No hydronephrosis. No sonographically evident solid mass lesion. MIDLINE VASCULATURE: The visualized inferior vena cava is patent. The maximum visualized aortic diameter is 2.1 cm. Splenic artery and vein are patent. IMPRESSION: 1. Cirrhotic liver with splenomegaly and ascites. 2. Patent TIPS. Remainder of the hepatic and portal vasculature is patent with normal flow directionality. 3. Cholelithiasis. Signed: Ken Huerta Ve rified Date/Time: 07/06/2020 19:29:38 U/S, DUPLEX, [id number] 19:29:00 Referring: Dr. Yary Eastman/ KINA stein for TIPS assessment Reason for exam:->doppler for TIPS assessment [facility] 1955 Sex: MFINAL REPORT TECHNIQUE: Grayscale ultrasound of the abdomen with color Doppler and spectral Doppler ultrasound of the portal/hepatic vasculature. INDICATION: doppler for TIPS assessment. COMPARISON: 04/26/2020. FINDINGS: LIVER: Nodular and cirrhotic liver contour.No focal liver lesions. HEPATIC VASCULATURE: Portal veins are patent with normal waveform and directionality. Flow velocity in the main portal vein is within normal limits. The hepatic arteries are patent with normal flow velocities, resistive indices, and waveforms. The hepatic veins and confluence are patent. The main portal vein measures 1.6 cm. TIPS is patent with intrastent velocities which range between 108-148 cm/s. BILIARY:Gallbladder: Shadowing gallstones are present within the gallbladder. Gallbladder wall is thickened to 0.6 cm which is nonspecific in the setting of cirrhosis. No gallbladder wall thickening, pericholecystic fluid, or distention. Negative sonographic Baltazar sign.Commonbile duct measures 0.4 cm, within normal limits. No intrahepatic biliary ductal dilatation. PANCREAS: Incompletely visualized due to overlying bowel gas. SPLEEN: Mild splenomegaly. The spleen measures 15.2 cm PERITONEUM: Small volume free fluid. KIDNEYS: Right kidney has measurements of 8.6 x 3.4 x by 4.2 cm and the left kidney has measurements 9.7 x 3.7 x 4.1 cm. No hydronephrosis. No sonographically evident solid mass lesion. MIDLINE VASCULATURE: The visualized inferior vena cava is patent. The maximum visualized aortic diameter is 2.1 cm. Splenic artery and vein are patent. IMPRESSION: 1. Cirrhotic liver with splenomegaly and ascites. 2. Patent TIPS. Remainder of the hepatic and portal vasculature is patent with normal flow directionality. 3. Cholelithiasis. Signed: Ken Huertaeport Ve rified Date/Time: 07/06/2020 19:29:38 US [id number] 19:29:00Interface, External Ris In - 07/06/2020 7:31 PM CSTFINAL REPORT TECHNIQUE: Grayscale ultrasound of the abdomen with color Doppler and spectral Doppler ultrasound of the portal/hepatic vasculature. INDICATION: doppler for TIPS assessment. COMPARISON: 04/26/2020. FINDINGS: LIVER: Nodular and cirrhotic liver contour. No focal liver lesions. HEPATIC VASCULATURE: Portal veins are p atent with normal waveform and directionality. Flow velocity in the main portal vein is within normal limits. The hepatic arteries are patent with normal flow velocities, resistive indices, and waveforms. The hepatic veins and confluence are patent. The main portal vein measures 1.6 cm. TIPS is patent with intrastent velocities which range between 108-148 cm/s. BILIARY:Gallbladder: Shadowing gallstones are present within the gallbladder. Gallbladder wall is thickened to 0.6 cm which is nonspecificin the setting of cirrhosis. No gallbladder wall thickening, pericholecystic fluid, or distention. Negative sonographic Baltazar sign.Common bile duct measures 0.4 cm, within normal limits. No intrahepatic biliary ductal dilatation. PANCREAS: Incompletely visualized due to overlying bowel gas. SPLEEN:Mild splenomegaly. The spleen measures 15.2 cm PERITONEUM: Small volume free fluid. KIDNEYS: Right kidney has measurements of 8.6 x 3.4 x by 4.2 cm and the left kidney has measurements 9.7 x 3.7 x 4.1 c m. No hydronephrosis. No sonographically evident solid mass lesion. MIDLINE VASCULATURE: The visualized inferior vena cava is patent. The maximum visualized aortic diameter is 2.1 cm. Splenic artery and vein are patent. IMPRESSION: 1. Cirrhotic liver with splenomegaly and ascites. 2. Patent TIPS. Remainder of the hepatic and portal vasculature is patent with normal flow directionality. 3. Cholelithiasis. Signed: Ken Huerta MDReport Verified Date/Time: 07/06/2020 19:29:38 [facility]US [facility] [id number] 19:29:00Interface, External Ris In - 07/06/2020 7:31 PM CSTFINAL REPORT TECHNIQUE: Grayscale ultrasound of the abdomen with color Doppler and spectral Doppler ultrasound of the portal/hepatic vasculature. INDICATION: doppler for TIPS assessment. COMPARISON: 04/26/2020. FINDINGS: LIVER: Nodular and cirrhotic liver contour. No focal liver lesions. HEPATIC VASCULATURE: Portal veins are p atent with normal waveform and directionality. Flow velocity in the main portal vein is within normal limits. The hepatic arteries are patent with normal flow velocities, resistive indices, and waveforms. The hepatic veins and confluence are patent. The main portal vein measures 1.6 cm. TIPS is patent with intrastent velocities which range between 108-148 cm/s. BILIARY:Gallbladder: Shadowing gallstones are present within the gallbladder. Gallbladder wall is thickened to 0.6 cm which is nonspecificin the setting of cirrhosis. No gallbladder wall thickening, pericholecystic fluid, or distention. Negative sonographic Baltazar sign.Common bile duct measures 0.4 cm, within normal limits. No intrahepatic biliary ductal dilatation. PANCREAS: Incompletely visualized due to overlying bowel gas. SPLEEN:Mild splenomegaly. The spleen measures 15.2 cm PERITONEUM: Small volume free fluid. KIDNEYS: Right kidney has measurements of 8.6 x 3.4 x by 4.2 cm and the left kidney has measurements 9.7 x 3.7 x 4.1 c m. No hydronephrosis. No sonographically evident solid mass lesion. MIDLINE VASCULATURE: The visualized inferior vena cava is patent. The maximum visualized aortic diameter is 2.1 cm. Splenic artery and vein are patent. IMPRESSION: 1. Cirrhotic liver with splenomegaly and ascites. 2. Patent TIPS. Remainder of the hepatic and portal vasculature is patent with normal flow directionality. 3. Cholelithiasis. Signed: Ken Huertaeport Verified Date/Time: 07/06/2020 19:29:38 [facility] count with [id number] 18:12:00 Test Item Value Reference Range Interpretation Comments Appearance (test code = Clear Clear 9335-1) Color (test code = Yellow Colorless, Straw A 6824-7) RBCs (test code = 450 See_Comment H [Automate d message] 56530-6) The system [employer]MS-Qi generated this result transmit abdullahi reference range : <=1 /cu mm. The reference range was not used to interpret this result as normal/abnormal . Adjusted WBC Count 69 See_Comment H [Automat ed message] (test code = 22062-4) The sy stem which generated this result transmit abdullahi reference range : <=5 /cu mm. The reference range was not used to interpret this result as normal/abnormal . Lining Cells (test code 1 See_Comment [Au tomated message] = 52352-2) The system [employer] generated this result transmit abdullahi reference range : <=1 /cu mm. The reference range was not used to interpret this result as normal/abnormal . % Segs (test code = 17 % 56542-9) % Lymphs (test code = 20 % 10282-9) % Monos (test code = 63 % 51389-6) % Eos (test code = 0 % 64191-6) % Baso (test code = 0 % 90888-6) Container Body Fluid EDTA Tube (test code = 2873) Lab Interpretation Abnormal (test code = 62103-6) [facility] WITH [id number] 18:12:00 Test Item Value Reference Range Interpretation Comments APPEARANCE FLUID (BEAKER) (test Clear Clear code = 510) COLOR FLUID (BEAKER) (test code = Yellow Colorless, Straw A 511) RBC FLUID (BEAKER) (test code = 450 /cu mm <=1 H 513) ADJUSTED WBC FLUID (BEAKER) (test 69 /cu mm <=5 H code = 1691) LINING CELLS (BEAKER) (test code 1 /cu mm <=1 = 1590) NEUTROPHILS FLUID (BEAKER) (test 17 % code = 1656) LYMPHS FLUID (BEAKER) (test code 20 % = 488) MONO/MACROPHAGE FLUID (BEAKER) 63 % (test code = 489) EOSINOPHILS FLUID (BEAKER) (test 0 % code = 491) BASO FLUID (BEAKER) (test code = 0 % 492) CONTAINER BODY FLUID (BEAKER) EDTA Tube (test code = 2873) Protein, Total, Peritoneal [id number] 17:03:00 Test Item Value Reference Range Interpretation Comments PROTEIN, TOTAL, 0.9 g/dL See Note: Reference PERITONEAL FLUID Range:TRANS UDATE: (test code = < OR = 2883-7) 3.0EXUDATE: >3.0 LATRELL (test code = Performing Lab LATRELL) [facility] [address] [place] [address] Chun Dunne MD, PhD, JEAN [facility] C[facility] + GRAM [id number] 13:45:00 Test Item Value Reference Range Interpretation Comments CULTURE (BEAKER) (test code No growth = 1095) GRAM STAIN RESULT (BEAKER) <1+ WBCs (test code = 1123) GRAM STAIN RESULT (BEAKER) No organisms seen (test code = 84823) BODY FLUID CULTURE + GRAM [id number] 13:44:00 Test Item Value Reference Range Interpretation Comments CULTURE (BEAKER) (test code No growth = 1095) GRAM STAIN RESULT (BEAKER) 1+ WBCs (test code = 1123) GRAM STAIN RESULT (BEAKER) No organisms seen (test code = 67738) [id number] 11:44:00 Test Item Value Reference Range Interpretation Comments Case Report (test code Medical Cytology = 104) Report Case: [id number] Authorizing Provider: Nicolas Key MD Collected: 07/03/2020 02:54 PM Ordering Location: [facility] Emergency Department Received: 07/04/2020 02:19 PM Pathologist: Angella Delgado MD Specimen: Paracentesis DIAGNOSIS (test code = f1apvQKyDTSvj2gwNRKasF 3220) FuZzEwMzNcZnRuYmpcdWMx IHtccnRmMVxlcGljOTIwMF fvmtJqTIPskZBtD6Mqkssl YEleSB2eIB8khDvjrUYurC MzANWoShDda6ahe359iDQi n5wtSPQOifguqVi9mLwoE4 0mp3I3XwwcG15pbJMtNVah bGFpblxmczIwIFBFUklUT0 8GXTypShiEQSSlTUSNJB0P GRuQTrTIThKjZ0ZZIPITPL 3HSnr7MODjjtYoYGFdMV8C F6YDYYESXJPXKqQELVeRC8 5BTkNZIFxwYXIgICAgLSBN yTltDGUjagXoNB3bTGGng1 2vGLJwxi5ptDMuGH1nVHHd zMZnRQhmAUS3t3lnrCMdIB NzdGUxODAwMFxhbnNpXGRl VtycjrcwINSvXCV2jrYtHY XkOGpwCQCvUYjjAt4ruVXo rNozUsGoYLQam2sfynCXyx evgUl4r6njIPEfQmG7zMVl TJzlZ2qzjdVtfYYbNXRoZY a0xN89IZWryM2hlJDkYJgc gsZrEwQ0RNcxTZJcHvX7VS HntWBaTXZcD5orAKMgMNly SCQsTIdqlEVdJXK6tMuvn9 Y9tUEkwBJcyDsdUfLoAmQf VyZWk2JlOZw8eRhjX5VsBL MkOjK7sXQpFQUtSWyaPXRf KUGjqzP0eN77FFmgvqI8eS Ibt5Huj88mc363yP5qdZCg TUR3HXBsCPNeoLCtOJLyZO J2UGGkePJnT9bqGQMnXT7x oducEResSFhxGFKerLL0EY NjeSZdO0KkPQHlGBovRBHo vwv2OzArAb3tsPLyjCclWH jrh5gfr5pomUKcBmb3BWVt FdRlIubrGYchg2Glm3qiDZ Hcwc8uAKY6yIZfmVpih3S7 nOWfVYSbmWMpKBDpHJ5poW InFHMswU7wupndQPTdCqJn hzbcYIUnhCohjyLvRh6ewV dqREX9DXelU7bmhW7gPpT8 YHwvK9bmxH1vZUq8RXkkQK EwoQW0kdT7KPAmzUSaC7Dp nT4nWJSpXR5wcnm8f1zjJA G3VLwqMSLaTeA1evJ8VUVk wSQcEYBgyXnyKCama495QY F8BjAuMGNia0OjC1EwlGdq V38ebDxpY85iWGOcsNvobI 2szNowxN0kArGeHjXePMhx mVchZD0sVMBmQ3piwDGyWP KeFELqW7fxWcAynC6kaLsk OFbvqrInFTAuGde6HIFjlB BxNYWvHfn7SIMbVGChS55u dqecZWY9yQ6hs0daa6MjNR cdBKR8YUGyc08yPNummbX6 FAvnFr6aISQoAYRkPXfaQH J9fQ== CPT Code(s) (test code e6htpOPcJNRljQV8QyYhLT = 3357) Anp4xqj4BfwFKgzUXjULld sDCvcqInba33oRK1xI53UA 6hJDDzClO8ZYVemvD3Qok7 SBNaWHAotHGeR301p6hrh0 qhgyDhoRL4rDftDOBiVRHl YWluXGZzMjAgODgxMDhccG FyfQ== CLINICAL DATA (test n8ywuCCjNFZmcME8GjGxUI code = 3355) Fuq6fva4XuaFPgoXPbLBuz lOHuofKzne71mBW7wE96KR 9mURDqMrQ1KNGgojR5Fwf7 BIIfSKRxcSLuR413q5wgx7 okooTvdMT6aWkpXXShMXZw YWluXGZzMjAgQXNjaXRlcz asL08dgP3xROEhoxhuLnax UVliqZHmc8RjXxrwoSEiF4 nkDJ6mku5nZ1hzNVI6COIy qn7TN9CZHK0vY1EyKazcXY GetmLtGHt7ceaodAQakuGc bGFudFx+KDIwMTYpLFx+Y2 jfjoaif4ijVB9kJkBigs4m SL1gc4RchMU2jTAwWLMwyj Akk5qaDHxrHUhqfMDmcOvw ffZwD1FmVLmMQuGukyJmKp 2dXWShCKAPW1MjO1ZfQ5Ug fjQsIFx+TTXbvWU0NDMjj0 3sEJ9oXvDsGDvuyFufBQp3 AUJeSOWcQI85UBkce8BhfC VzXHBhcn0= SPECIMEN SOURCE (test s0croLPyWRQneGW6FtCuTC code = 3377) Pmu1xkk6UykZNniXYuBTii jHZdjjJmyl64lHT2xM57LW 3sJMIlBuL6GWZjxfK8Eln8 JSKcNJFyqWGmR487t1lmi3 slolYzbGF8zBhuWDMgAYAl YWluXGZzMjAgUEVSSVRPTk VBTCBGTFVJRFxwYXJ9 GROSS DESCRIPTION (test y3siqRTnFAVjaPF5IjUpQG code = 3366) Tsr1btu0WulLVfqSMsXLpn sMMlfeNkxo79xWY9bV49YZ 1mRDGdLaD6IICbojR7Kjr3 HHCrMCDtzKOlF122t8iyh3 pzfjMidGG2eRnrNFLjSXFx JLrgAZOzCeVrDbApJOt8PH WySOKfXJKirOHdjN72SZem IHllbGxvdyBmbHVpZDsgcH CyyHGbHLQaZPMiqTWvv9Zq bnMgXHBhcn0= MICROSCOPIC DESCRIPTION y6zpaMAcYCZymWR4UhNwFT (test code = 3371) Uzy9sqq9QnmLYxaEHgVUff jTJrhiVvpg04hRL4pV38MZ 7wDKGjBbV0HYCkazI6Cwg2 ZMNsFZPceROeZ911r5ica1 ddrqIilBH9bScaPHHjDRAa MZguVJCxErToLNBcTp0krP VkLiBccGFyfQ== STATEMENT OF ADEQUACY Satisfactory (test code = 2757) Gross assessment was [facility] performed at ([facility], = 2777) Department of Pathology, [address] [place] [address], Technical component was [facility] performed at ([facility], = 2778) Department of Pathology, [address] [place] [address], Professional component [facility] was performed at ([facility], code = 2779) Department of Pathology, [address] [place] [address], [facility] 11:44:00Medical Cytology Report Case: [id number] Aut horizing Provider: Nicolas Key MD Collected: 07/03/2020 02:54 PM Ordering Location: [facility] Emergency Department Received: 07/04/2020 02:19 PM Pathologist: Angella Delgado MD Specimen: Paracentesis PERITONEAL FLUID (CYTOSPINS AND CELL BLOCK): - NEGATIVE FOR MALIGNANCY - Mixed inflammation (chronic and acute) Signing Pathologist Direct Phone Line: [phone] signed by Angella Delgado MD on 07/06/2020 at 11:44 [id number]; common variable immunodeficiency, bronchiectasis/COPD s/p bilateral lung transplant (2015), 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 [facility] of Pathology, [address] [place] [address], [facility], Department of Pathology, [address] [place] [address], [facility]qyAd[facility] [facility], Department of Pathology, [address] [place] [address] [place] [address], LTNEGZBSZV [id number] 10:33:00 Test Item Value Reference Range Interpretation Comments TACROLIMUS BLOOD 3.2 ng/mL 10.0-20.0 L Test perfor med on Colon (BEAKER) (test code Architec t Immunoassay = 657) system with Chemiluminescen t Microparticle I mmunoassay (CMIA) technolo gy. Agricultural Systems Specialist ID - EMERSONCOMPREHENSIVE METABOLIC [id number] 08:12:00 Test Item Value Reference Range Interpretation Comments TOTAL PROTEIN 3.7 gm/dL 6.0-8.3 L (BEAKER) (test code = 770) ALBUMIN (BEAKER) 2.8 g/dL 3.5-5.0 L (test code = 1145) ALKALINE PHOSPHATASE 200 U/L 40-150 H (BEAKER) (test code = 346) BILIRUBIN TOTAL 2.2 mg/dL 0.2-1.2 H (BEAKER) (test code = 377) SODIUM (BEAKER) (test 141 meq/L 136-145 code = 381) POTASSIUM (BEAKER) 3.7 meq/L 3.5-5.1 (test code = 379) CHLORIDE (BEAKER) 107 meq/L 98-107 (test code = 382) CO2 (BEAKER) (test 28 meq/L 22-29 code = 355) BLOOD UREA NITROGEN 29 mg/dL 7-21 H (BEAKER) (test code = 354) CREATININE (BEAKER) 1.87 mg/dL 0.57-1.25 H (test code = 358) GLUCOSE RANDOM 88 mg/dL 70-105 (BEAKER) (test code = 652) CALCIUM (BEAKER) 8.0 mg/dL 8.4-10.2 L (test code = 697) AST (SGOT) (BEAKER) 24 U/L 5-34 (test code = 353) ALT (SGPT) (BEAKER) 21 U/L 6-55 (test code = 347) EGFR (BEAKER) (test 37 mL/min/1.73 ESTIMA ABDULLAHI GFR IS code = 1092) sq m NOT ACCURATE CREATININE CLEARANCE IN PREDICTING GLOMERULAR FILTRATION RATE . ESTIMATED GFR I S NOT APPLICABLE FOR DIALYSIS PATIEN TS. Agricultural Systems Specialist ID - ADMINSpecimen slightly ictericCBC W/PLT COUNT & AUTO [id number] 08:02:00 Test Item Value Reference Range Interpretation Comments WHITE BLOOD CELL COUNT (BEAKER) 3.8 K/ L 3.5-10.5 (test code = 775) RED BLOOD CELL COUNT (BEAKER) 2.34 M/ L 4.63-6.08 L (test code = 761) HEMOGLOBIN (BEAKER) (test code = 7.5 GM/DL 13.7-17.5 L 410) HEMATOCRIT (BEAKER) (test code = 22.5 % 40.1-51.0 L 411) MEAN CORPUSCULAR VOLUME (BEAKER) 96.2 fL 79.0-92.2 H (test code = 753) MEAN CORPUSCULAR HEMOGLOBIN 32.1 pg 25.7-32.2 (BEAKER) (test code = 751) MEAN CORPUSCULAR HEMOGLOBIN CONC 33.3 GM/DL 32.3-36.5 (BEAKER) (test code = 752) RED CELL DISTRIBUTION WIDTH 19.3 % 11.6-14.4 H (BEAKER) (test code = 412) PLATELET COUNT (BEAKER) (test code 42 K/CU MM 150-450 L = 756) MEAN PLATELET VOLUME (BEAKER) 10.6 fL 9.4-12.4 (test code = 754) NUCLEATED RED BLOOD CELLS (BEAKER) 0 /100 WBC 0-0 (test code = 413) NEUTROPHILS RELATIVE PERCENT 74 % (BEAKER) (test code = 429) LYMPHOCYTES RELATIVE PERCENT 13 % (BEAKER) (test code = 430) MONOCYTES RELATIVE PERCENT 7 % (BEAKER) (test code = 431) EOSINOPHILS RELATIVE PERCENT 5 % (BEAKER) (test code = 432) BASOPHILS RELATIVE PERCENT 1 % (BEAKER) (test code = 437) NEUTROPHILS ABSOLUTE COUNT 2.77 K/ L 1.78-5.38 (BEAKER) (test code = [...] 0-1 PERCENT (BEAKER) (test code = 2801) URINALYSIS W/ [id number] 16:50:00 Test Item Value Reference Range Interpretation Comments COLOR (BEAKER) (test code = 470) Yellow CLARITY (BEAKER) (test code = 469) Clear SPECIFIC GRAVITY UA (BEAKER) (test 1.021 1.001-1.035 code = 468) PH UA (BEAKER) (test code = 467) 5.5 5.0-8.0 PROTEIN UA (BEAKER) (test code = [...] (BEAKER) (test code = 520) 2 /HPF BACTERIA (BEAKER) (test code = 517) Rare MUCUS (BEAKER) (test code = 1574) Rare HYALINE CASTS (BEAKER) (test code = 2 /LPF 514) CRYSTALS, URINE (BEAKER) (test code Rare = 1521) SOURCE(BEAKER) (test code = 2795) Agricultural Systems Specialist ID - [auto]Agricultural Systems Specialist ID - techSODIUM, RANDOM [id number] 16:49:00 Test Item Value Reference Range Interpretation Comments SODIUM URINE (BEAKER) (test code = 27 meq/L 243) Reference Range: No NormalsOperator ID - ADMINALBUMIN PERITONEAL [id number] 15:03:00 Test Item Value Reference Range Interpretation Comments Albumin, Peritoneal Fluid (test code = 0.8 1749-1) [facility]AL[facility] PERIT[facility]AL [id number] 15:03:00 Test Item Value Reference Range Interpretation Comments ALBUMIN, PERITONEAL FLUID (BEAKER) 0.8 (test code = 3800319) TACROLIMUS [id number] 11:19:00 Test Item Value Reference Range Interpretation Comments TACROLIMUS BLOOD 2.2 ng/mL 10.0-20.0 L Test perfor med on Colon (BEAKER) (test code Architec t Immunoassay = 657) system with Chemiluminescen t Microparticle I mmunoassay (CMIA) technolo gy. Agricultural Systems Specialist ID - SAMY MCOMPREHENSIVE METABOLIC [id number] 06:56:00 Test Item Value Reference Range Interpretation Comments TOTAL PROTEIN 3.4 gm/dL 6.0-8.3 L (BEAKER) (test code = 770) ALBUMIN (BEAKER) 2.5 g/dL 3.5-5.0 L (test code = 1145) ALKALINE PHOSPHATASE 210 U/L 40-150 H (BEAKER) (test code = 346) BILIRUBIN TOTAL 2.3 mg/dL 0.2-1.2 H (BEAKER) (test code = 377) SODIUM (BEAKER) (test 141 meq/L 136-145 code = 381) POTASSIUM (BEAKER) 3.8 meq/L 3.5-5.1 (test code = 379) CHLORIDE (BEAKER) 107 meq/L 98-107 (test code = 382) CO2 (BEAKER) (test 26 meq/L 22-29 code = 355) BLOOD UREA NITROGEN 29 mg/dL 7-21 H (BEAKER) (test code = 354) CREATININE (BEAKER) 1.98 mg/dL 0.57-1.25 H (test code = 358) GLUCOSE RANDOM 115 mg/dL 70-105 H (BEAKER) (test code = 652) CALCIUM (BEAKER) 7.7 mg/dL 8.4-10.2 L (test code = 697) AST (SGOT) (BEAKER) 25 U/L 5-34 (test code = 353) ALT (SGPT) (BEAKER) 21 U/L 6-55 (test code = 347) EGFR (BEAKER) (test 34 mL/min/1.73 ESTIMA ABDULLAHI GFR IS code = 1092) sq m NOT ACCURATE CREATININE CLEARANCE IN PREDICTING GLOMERULAR FILTRATION RATE . ESTIMATED GFR I S NOT APPLICABLE FOR DIALYSIS PATIEN TS. Agricultural Systems Specialist ID - JUNO WSpecimen slightly ictericCBC W/PLT COUNT & AUTO [id number] 05:38:00 Test Item Value Reference Range Interpretation Comments WHITE BLOOD CELL COUNT 3.4 K/ L 3.5-10.5 L (BEAKER) (test code = 775) RED BLOOD CELL COUNT 2.35 M/ L 4.63-6.08 L (BEAKER) (test code = 761) HEMOGLOBIN (BEAKER) 7.3 GM/DL 13.7-17.5 L (test code = 410) HEMATOCRIT (BEAKER) 22.2 % 40.1-51.0 L (test code = 411) MEAN CORPUSCULAR 94.5 fL 79.0-92.2 H Discordant mcv result VOLUME (BEAKER) (test compar ed to previous code = 753) result, clinica l correlation req uired MEAN CORPUSCULAR 31.1 pg 25.7-32.2 HEMOGLOBIN (BEAKER) (test code = 751) MEAN CORPUSCULAR 32.9 GM/DL 32.3-36.5 HEMOGLOBIN CONC (BEAKER) (test code = 752) RED CELL DISTRIBUTION 20.0 % 11.6-14.4 H WIDTH (BEAKER) (test code = 412) PLATELET COUNT 43 K/CU MM 150-450 L (BEAKER) (test code = 756) MEAN PLATELET VOLUME 10.5 fL 9.4-12.4 (BEAKER) (test code = 754) NUCLEATED RED BLOOD 0 /100 WBC 0-0 CELLS (BEAKER) (test code = 413) NEUTROPHILS RELATIVE 76 % PERCENT (BEAKER) (test code = 429) LYMPHOCYTES RELATIVE 16 % PERCENT (BEAKER) (test code = 430) MONOCYTES RELATIVE 6 % PERCENT (BEAKER) (test code = 431) EOSINOPHILS RELATIVE 3 % PERCENT (BEAKER) (test code = 432) BASOPHILS RELATIVE 0 % PERCENT (BEAKER) (test code = 437) NEUTROPHILS ABSOLUTE 2.56 K/ L 1.78-5.38 COUNT (BEAKER) (test code = 670) LYMPHOCYTES ABSOLUTE 0.53 K/ L 1.32-3.57 L COUNT (BEAKER) (test code = 414) MONOCYTES ABSOLUTE 0.19 K/ L 0.30-0.82 L COUNT (BEAKER) (test code = 415) EOSINOPHILS ABSOLUTE 0.09 K/ L 0.04-0.54 COUNT (BEAKER) (test code = 416) BASOPHILS ABSOLUTE 0.01 K/ L 0.01-0.08 COUNT (BEAKER) (test code = 417) IMMATURE 0 % 0-1 GRANULOCYTES-RELATIVE PERCENT (BEAKER) (test code = 2801) SARS-COV2/RT-PCR ([facility] & REF LABS)2020-07-04 17:49:00 Test Item Value Reference Range Interpretation Comments SARS-COV2/RT-PCR (test Negative Not Detected, Negative, code = 5277619) See external report for linked test SARS-COV-2 PERFORMING LAB [facility] TARA (test code = 7713714) Negative result for this test determines that SARS-CoV-2 RNA was not present in the specimen above the Limit of Detection (LOD). However, Negative results do not preclude SARS-CoV-2 infection and should not be used as the sole basis for treatment or patient management decisions. Negative results mustbe combined with clinical observations, patient history, and epidemiological information. A false negative result may occur if a specimen is improperly collected, transported or handled. A false negative result should be considered if patient's recent exposures or clinical presentation indicate that COVID-19 (SARS-CoV-2) is likely and diagnostic tests for other causes of illness are negative. Re-testing should be considered in cases of suspected false negatives.The limit of detection for this assay is 800 copies/mL.This SARS CoV-2 test is a real-time RT-PCR test intended for the qualitative detection of nucleic acid from SARS-CoV-2 in a nasopharyngeal swab specimen collected from individuals suspected of COVID-19 by their healthcare provider.This test has not been Food and Drug Administration (FDA) cleared or approved. This is a modified version of an approved Emergency Use Authorization (EUA) and is in the process of review by the FDA. Once authorized by the FDA, the issued EUA will be effective until the declaration that circumstances exist justifying the authorization of the emergency use of in vitro diagnostic tests for detection and/or diagnosis of COVID-19 is terminated under Section 564(b)(2) of the Act or the EUA is revoked under Section 564(g) of the Act.Fact Sheet for Healthcare Providers:https://www.[employer].com/sites/default/files/product/documents/Fact_Shee h_GN_Cwewvfjwd_Ltqm_OBCC-IzU-9.pdfFact Sheet for Healthcare Patients:https://www.[employer]/sites/default/files/product/ documents/Ckiz_Rkzpo_Csjdkica_Ndkl_USSO-QiP-1.pdfPerforming Laboratory:[facility] [place], [place] [id number] 13:40:00 Test Item Value Reference Range Interpretation Comments PHOSPHORUS (BEAKER) (test code = 4.1 mg/dL 2.3-4.7 604) Agricultural Systems Specialist ID - CASEY MRAD, CHEST, 1 VIEW, NON [id number] 12:56:00Referring: Dr. Yary Eastman/ [place] for exam:->lung transplantShould this be performed at the bedside?->Yes [facility] 1955 Sex: MFINAL REPORT RAD, CHEST, 1 VIEW, NON DEPT INDICATION: lung transplant COMPARISON: April 24, 2020 FINDINGS: Portable frontal view of the chest. IMPRESSION: Support Lines: None Lungs and pleura: Hypoinflated lungs without consolidation. Minimal interstitial prominence may reflect mild edema. Trace effusions. No pneumothorax.Heart and mediastinum: Stable contours. Stable surgical changes.Additional findings: None. Signed: JR Rizzo Robert MDReport Verified Date/Time: 07/04/2020 12:56:55 Reading Location: [facility] Radiology Reading Room SARS-COV2/RT-PCR ([facility])2020-07-04 09:52:00 Test Item Value Reference Range Interpretation Comments SARS-COV2/RT-PCR (test Negative Not Detected, Negative, code = 4434772) See external report for linked test SARS-COV-2 PERFORMING LAB [facility] (test code = 0667584) Negative result for this test determines that SARS-CoV-2 RNA was not present in the specimen above the Limit of Detection (LOD). However, Negative results do not preclude SARS-CoV-2 infection and should not be used as the sole basis for treatment or patient management decisions. Negative results mustbe combined with clinical observations, patient history, and epidemiological information. A false negative result may occur if a specimen is improperly collected, transported or handled. A false negative result should be considered if patient's recent exposures or clinical presentation indicate that COVID-19 (SARS-CoV-2) is likely and diagnostic tests for other causes of illness are negative. Re-testing should be considered in cases of suspected false negatives.The limit of detection for this assay is 800 copies/mL.This SARS CoV-2 test is a real-time RT-PCR test intended for the qualitative detection of nucleic acid from SARS-CoV-2 in a nasopharyngeal swab specimen collected from individuals suspected of COVID-19 by their healthcare provider.This test has not been Food and Drug Administration (FDA) cleared or approved. This is a modified version of an approved Emergency Use Authorization (EUA) and is in the process of review by the FDA. Once authorized by the FDA, the issued EUA will be effective until the declaration that circumstances exist justifying the authorization of the emergency use of in vitro diagnostic tests for detection and/or diagnosis of COVID-19 is terminated under Section 564(b)(2) of the Act or the EUA is revoked under Section 564(g) of the Act.Fact Sheet for Healthcare Providers:https://www.[employer]/sites/default/files/product/documents/Fact_Shee r_FJ_Ynmmancjh_Uaas_ZSKI-GkU-0.pdfFact Sheet for Healthcare Patients:https://www.[employer].com/sites/default/files/product/ documents/Wunu_Zmagy_Vmnovzez_Kgqk_FUAN-MlG-2.pdfPerforming Laboratory:[facility], [place] [address]EZPBQTAZEUQTG METABOLIC [id number] 07:04:00 Test Item Value Reference Range Interpretation Comments TOTAL PROTEIN 3.8 gm/dL 6.0-8.3 L (BEAKER) (test code = 770) ALBUMIN (BEAKER) 2.8 g/dL 3.5-5.0 L (test code = 1145) ALKALINE PHOSPHATASE 228 U/L 40-150 H (BEAKER) (test code = 346) BILIRUBIN TOTAL 2.4 mg/dL 0.2-1.2 H (BEAKER) (test code = 377) SODIUM (BEAKER) (test 142 meq/L 136-145 code = 381) POTASSIUM (BEAKER) 3.4 meq/L 3.5-5.1 L (test code = 379) CHLORIDE (BEAKER) 106 meq/L 98-107 (test code = 382) CO2 (BEAKER) (test 27 meq/L 22-29 code = 355) BLOOD UREA NITROGEN 29 mg/dL 7-21 H (BEAKER) (test code = 354) CREATININE (BEAKER) 1.74 mg/dL 0.57-1.25 H (test code = 358) GLUCOSE RANDOM 84 mg/dL 70-105 (BEAKER) (test code = 652) CALCIUM (BEAKER) 7.9 mg/dL 8.4-10.2 L (test code = 697) AST (SGOT) (BEAKER) 29 U/L 5-34 (test code = 353) ALT (SGPT) (BEAKER) 25 U/L 6-55 (test code = 347) EGFR (BEAKER) (test 40 mL/min/1.73 ESTIMA ABDULLAHI GFR IS code = 1092) sq m NOT ACCURATE CREATININE CLEARANCE IN PREDICTING GLOMERULAR FILTRATION RATE . ESTIMATED GFR I S NOT APPLICABLE FOR DIALYSIS PATIEN TS. Agricultural Systems Specialist ID - PIAYA LSpecimen slightly ictericCBC W/PLT COUNT & AUTO [id number] 06:15:00 Test Item Value Reference Range Interpretation Comments WHITE BLOOD CELL COUNT (BEAKER) 3.7 K/ L 3.5-10.5 (test code = 775) RED BLOOD CELL COUNT (BEAKER) 2.07 M/ L 4.63-6.08 L (test code = 761) HEMOGLOBIN (BEAKER) (test code = 6.7 GM/DL 13.7-17.5 L 410) HEMATOCRIT (BEAKER) (test code = 20.4 % 40.1-51.0 L 411) MEAN CORPUSCULAR VOLUME (BEAKER) 98.6 fL 79.0-92.2 H (test code = 753) MEAN CORPUSCULAR HEMOGLOBIN 32.4 pg 25.7-32.2 H (BEAKER) (test code = 751) MEAN CORPUSCULAR HEMOGLOBIN CONC 32.8 GM/DL 32.3-36.5 (BEAKER) (test code = 752) RED CELL DISTRIBUTION WIDTH 18.4 % 11.6-14.4 H (BEAKER) (test code = 412) PLATELET COUNT (BEAKER) (test code 52 K/CU MM 150-450 L = 756) MEAN PLATELET VOLUME (BEAKER) 10.9 fL 9.4-12.4 (test code = 754) NUCLEATED RED BLOOD CELLS (BEAKER) 0 /100 WBC 0-0 (test code = 413) NEUTROPHILS RELATIVE PERCENT 80 % (BEAKER) (test code = 429) LYMPHOCYTES RELATIVE PERCENT 11 % (BEAKER) (test code = 430) MONOCYTES RELATIVE PERCENT 5 % (BEAKER) (test code = 431) EOSINOPHILS RELATIVE PERCENT 2 % (BEAKER) (test code = 432) BASOPHILS RELATIVE PERCENT 1 % (BEAKER) (test code = 437) NEUTROPHILS ABSOLUTE COUNT 2.95 K/ L 1.78-5.38 (BEAKER) (test code = 670) LYMPHOCYTES ABSOLUTE COUNT 0.41 K/ L 1.32-3.57 L (BEAKER) (test code = 414) MONOCYTES ABSOLUTE COUNT (BEAKER) 0.19 K/ L 0.30-0.82 L (test code = 415) EOSINOPHILS ABSOLUTE COUNT 0.08 K/ L 0.04-0.54 (BEAKER) (test code = 416) BASOPHILS ABSOLUTE COUNT (BEAKER) 0.03 K/ L 0.01-0.08 (test code = 417) IMMATURE GRANULOCYTES-RELATIVE 1 % 0-1 PERCENT (BEAKER) (test code = 2801) U/S, [id number] 19:33:00Referring: Dr. Yary Eastman/ Beto to be ordered:->No Labs NeededLabs to be ordered:->AFBCulture with StainLabs to be ordered:->Body Fluid Culture (w/Gram Stain, C\\T\\S)Labs to be ordered:- >CytologyLabs to be ordered:->Glucose+LDH+ProteinReason for exam:- >HYPOTENSIONReason for exam:->ALTERED M[facility]AL STATUS [facility] : 1955 Sex: MFINAL REPORT PROCEDURE: Ultrasound-guided paracentesis. INDICATION: Ascites. DESCRIPTION: After obtaining informed written consent, ultrasound scan of the abdomen identified ascites in the right lower quadrant. The overlying skin was prepped and draped in the usual, sterile fashion and local 2% lidocaine anesthesia was administered. A 5 [place] catheter was advanced into the peritoneal cavity and 2000 mL of clear yellow fluid was removed. The catheter was removed without immediate complication. Samples were sent for analysis. IMPRESSION:Uncomplicated ultrasound-guided paracentesis with 2000 mL of fluid removed. Signed: Mina Mcmahan MDRfernandoort Verified Date/Time: 07/03/2020 19:33:14 Reading Location: [address] Body Reading Room Amylase Peritoneal [id number] 18:31:00 Test Item Value Reference Range Interpretation Comments AMYLASE, PERITONEAL 22 U/L See Comment FLUID (test code = 7482421) LATRELL (test code = Amylase activity in LATRELL) peritoneal fluids of non-pancreatic origin is often less than or equal to the amylase activity in blood, whereas elevated amylase activity has been reported in fluid of pancreatic origin (five-folds or higher compared to contemporaneously collected blood specimen).This test has been modified from the supervising fire marshal's instructions and its performance characteristics were determined by [facility]. The laboratory is regulated under CLIA as qualified to perform high-complexity testing. This test has not been cleared or approved by the U.S. Food and Drug Administration. The reference intervals and other method performance specifications are unavailable for amylase in peritoneal fluid. Comparison of this result with the blood amylase is recommended. Agricultural Systems Specialist ID - DB [facility] HospitalAMYLASE PERITONEAL [id number] 18:31:00 Test Item Value Reference Range Interpretation Comments AMYLASE, PERITONEAL FLUID (test code = 22 U/L See Comment [id number]) Amylase activity in peritoneal fluids of non-pancreatic origin is often less than or equal to the amylase activity in blood, whereas elevated amylase activity has been reported in fluid of pancreatic origin (five-folds or higher compared to contemporaneously collected blood specimen).This test has been modified from the supervising fire marshal's instructions and its performance characteristics were determined by [facility]. The laboratory is regulated under CLIA as qualified to perform high-complexity testing. This test has not been cleared or approved by the U.S. Food and Drug Administration. The reference intervals and other method performance specifications are unavailable for amylase in peritoneal fluid. Comparison of this result with the blood amylase is recommended.Agricultural Systems Specialist ID - DBBODY FLUID CELL COUNT WITH [id number] 16:01:00 Test Item Value Reference Range Interpretation Comments APPEARANCE FLUID (BEAKER) (test Hazy Clear A code = 510) COLOR FLUID (BEAKER) (test code = Yellow Colorless, Straw A 511) RBC FLUID (BEAKER) (test code = 530 /cu mm <=1 H 513) ADJUSTED WBC FLUID (BEAKER) (test 132 /cu mm <=5 H code = 1691) LINING CELLS (BEAKER) (test code 3 /cu mm <=1 H = 1590) NEUTROPHILS FLUID (BEAKER) (test 38 % code = 3386) LYMPHS FLUID (BEAKER) (test code 36 % = 488) MONO/MACROPHAGE FLUID (BEAKER) 26 % (test code = 489) EOSINOPHILS FLUID (BEAKER) (test 0 % code = 491) BASO FLUID (BEAKER) (test code = 0 % 492) CONTAINER BODY FLUID (BEAKER) EDTA Tube (test code = 2873) ECG/EKG [id number] 13:27:22Nicolas Key MD 07/03/2020 1:38 PMECG/EKG Interpretation Date/Time: 07/03/2020 1:35 PMPerformed by: Nicolas Key MDAuthorized by: Nicolas Key MD The ECG was interpreted by ED physician. The ECG is interpreted as sinus rhythm. Rate is normal rate. Heart rate is 75 BPM.Clinical Impression: non-specific ECGECG reviewed and does not meet STEMI criteria.[facility] HospitalCT, BRAIN, WITHOUT CONTRAST 2020-07-03 12:39:00Referring: Dr. Yary Eastman/ [place] for exam:- >ALTERED MENTAL STATUSWhat is the patient's sedation requirement?->No SedationEISENHOWER MEDICAL [facility]ENTERName: [facility] : 1955 Sex: MFINAL REPORT CT, BRAIN, WITHOUT CONTRAST INDICATION: Altered mental statusALTERED MENTAL STATUS TECHNIQUE: Noncontrast axial imaging was obtained from the vertex to the skull base. Axial images were reconstructed using a bone algorithm. DOSE REDUCTION: Dose modulation, iterative reconstruction, and/or weight-based adjustment of the mA/kV was utilized to reduce the radiation dose to as low as reasonably achievable. COMPARISON: None. FINDINGS: Intracranial: No intracranial hemorrhage or abnormal extra-axial collection. No evidence of acute territorial infarct. No mass effect. No hydrocephalus. Mild generalized cerebral volume loss. Scattered foci of hypoattenuation within the periventricular and subcortical white matter are a nonspecific finding commonly attributed to chronic small vessel ischemic disease. Osseous structures: No fracture. No suspicious lesion. Paranasal sinuses and mastoid air cells: No evidence of sinusitis. Mastoids are clear. Orbital contents: Globes are intact. IMPRESSION: No acute intracranial hemorrhage or CT evidence of territorial i nfarct. If there is persistent clinical concern for intracranial pathology, MR examination is recommended for further characterization. Signed: Lorraine Thompson Verified Date/Time: 07/03/2020 12:39:26 COMPREHENSIVE METABOLIC PANEL 2020-07-03 12:20:00 Test Item Value Reference Range Interpretation Comments TOTAL PROTEIN 4.4 gm/dL 6.0-8.3 L (BEAKER) (test code = 770) ALBUMIN (BEAKER) 3.3 g/dL 3.5-5.0 L (test code = 1145) ALKALINE PHOSPHATASE 269 U/L 40-150 H (BEAKER) (test code = 346) BILIRUBIN TOTAL 2.9 mg/dL 0.2-1.2 H (BEAKER) (test code = 377) SODIUM (BEAKER) (test 141 meq/L 136-145 code = 381) POTASSIUM (BEAKER) 3.5 meq/L 3.5-5.1 (test code = 379) CHLORIDE (BEAKER) 104 meq/L 98-107 (test code = 382) CO2 (BEAKER) (test 28 meq/L 22-29 code = 355) BLOOD UREA NITROGEN 28 mg/dL 7-21 H (BEAKER) (test code = 354) CREATININE (BEAKER) 1.82 mg/dL 0.57-1.25 H (test code = 358) GLUCOSE RANDOM 109 mg/dL 70-105 H (BEAKER) (test code = 652) CALCIUM (BEAKER) 8.2 mg/dL 8.4-10.2 L (test code = 697) AST (SGOT) (BEAKER) 33 U/L 5-34 (test code = 353) ALT (SGPT) (BEAKER) 28 U/L 6-55 (test code = 347) EGFR (BEAKER) (test 38 mL/min/1.73 ESTIMA ABDULLAHI GFR IS code = 1092) sq m NOT ACCURATE CREATININE CLEARANCE IN PREDICTING GLOMERULAR FILTRATION RATE . ESTIMATED GFR I S NOT APPLICABLE FOR DIALYSIS PATIEN TS. Agricultural Systems Specialist ID - GENARO CSpecimen slightly ictericCBC W/PLT COUNT & AUTO [id number] 12:19:00 Test Item Value Reference Range Interpretation Comments WHITE BLOOD CELL COUNT (BEAKER) 5.2 K/ L 3.5-10.5 (test code = 775) RED BLOOD CELL COUNT (BEAKER) 2.48 M/ L 4.63-6.08 L (test code = 761) HEMOGLOBIN (BEAKER) (test code = 8.1 GM/DL 13.7-17.5 L 410) HEMATOCRIT (BEAKER) (test code = 24.3 % 40.1-51.0 L 411) MEAN CORPUSCULAR VOLUME (BEAKER) 98.0 fL 79.0-92.2 H (test code = 753) MEAN CORPUSCULAR HEMOGLOBIN 32.7 pg 25.7-32.2 H (BEAKER) (test code = 751) MEAN CORPUSCULAR HEMOGLOBIN CONC 33.3 GM/DL 32.3-36.5 (BEAKER) (test code = 752) RED CELL DISTRIBUTION WIDTH 18.6 % 11.6-14.4 H (BEAKER) (test code = 412) PLATELET COUNT (BEAKER) (test code 68 K/CU MM 150-450 L = 756) MEAN [...] (test code = 437) NEUTROPHILS ABSOLUTE COUNT 4.27 K/ L 1.78-5.38 (BEAKER) (test code = 670) LYMPHOCYTES ABSOLUTE COUNT 0.48 K/ L 1.32-3.57 L (BEAKER) (test code = 414) MONOCYTES ABSOLUTE COUNT (BEAKER) 0.27 K/ L 0.30-0.82 L (test code = 415) EOSINOPHILS ABSOLUTE COUNT 0.11 K/ L 0.04-0.54 (BEAKER) (test code = 416) BASOPHILS ABSOLUTE COUNT (BEAKER) 0.05 K/ L 0.01-0.08 (test code = 417) IMMATURE GRANULOCYTES-RELATIVE 1 % 0-1 PERCENT (BEAKER) (test code = 2801) [id number] 12:09:00 Test Item Value Reference Range Interpretation Comments PTT (test code = 74401-8) 32.6 See_Comment [ Automated message] The system AMS-Qi generated this result transmitted ref erence range: 22.5 - 3 6.0 seconds. The re ference range was not u sed to interpret this result as normal/abnor mal. Lab Interpretation (test Normal code = 01816-3) [facility] HospitalAPTT2021-01-[facility] 12:09:00 Test Item Value Reference Range Interpretation Comments PARTIAL THROMBOPLASTIN TIME 32.6 seconds 22.5-36.0 (BEAKER) (test code = 760) POCT-GLUCOSE [id number] 12:08:00 Test Item Value Reference Range Interpretation Comments POC-GLUCOSE METER 108 mg/dL 70-110 : TESTED A T [facility] 6720 (BEAKER) (test code = PARESH Garcia [facility], 1538) [address]: Agricultural Systems Specialist/Techni demetrice ID = [id number] for CL FRED FREIRE PROTHROMBIN TIME/[id number] 12:08:00 Test Item Value Reference Range Interpretation Comments PROTIME (BEAKER) (test code = 17.0 seconds 11.9-14.2 H 759) INR (BEAKER) (test code = 370) 1.42 <=5.90 Effective 11/26/2018: PT Reference Range ChangeNew: 11.9-14.2 Previous: 11.7- 14.7RECOMMENDED COUMADIN/WARFARIN INR THERAPY RANGESSTANDARD DOSE: 2.0-3.0 Includes: PROPHYLAXIS for venous thrombosis, systemic embolization; TREATMENT for venous thrombosis and/or pulmonary embolus.HIGH RISK: Target INR is2.5-3.5 for patients wiht mechanical heart valves.LACTIC ACID, [id number] 12:06:00 Test Item Value Reference Range Interpretation Comments LACTATE BLOOD VENOUS 1.69 mmol/L 0.50-2.20 Specime n slightly (2) (KATELYNN) (test hemolyzed code = 2872) Agricultural Systems Specialist ID - GENARO CSpecimen slightly [id number] 11:59:00 Test Item Value Reference Range Interpretation Comments AMMONIA (KATELYNN) (test code = 348) 61 mol/L 18-72 Agricultural Systems Specialist ID - GENARO WZHT-[id number] 14:05:00 Test Item Value Reference Range Interpretation Comments POC-Creatinine (test code 2.0 mg/dL 0.6-1.3 H : TESTED AT [facility] = 1859) [address] [facility] [place], [address]: Agricultural Systems Specialist/Techni demetrice ID = [id number] for Edquilang, Yolanda fe POC-EGFR (test code = 34 mL/min/1.73M2 1860) Lab Interpretation (test Abnormal code = 28074-4) [facility] HospitalPOCT-[id number] 14:05:00 Test Item Value Reference Range Interpretation Comments POC-CREATININE 2.0 mg/dL 0.6-1.3 H : TESTED AT [facility] (KATELYNN) (test [address] [facility] code = 1859) [place], [address]: Agricultural Systems Specialist/Techni demetrice ID = [id number] for Edquilang, Yoladna fe POC-EGFR (KATELYNN) 34 mL/min/1.73M2 (test code = 1860) Toxicology screen, [id number] 21:30:00 Test Item Value Reference Interpretation Comments Range DRUG TEST, see note The following c ompounds were GENERAL detected: Ca ffeine For a TOXICOLOGY, list of compoun ds and limits URINE,[facility] of detection go (test code = to:http://educa tion.LoftyVistasdia 3052) Cream Style/fa q/QKZ526 This test was d megan and its analytical performancechar acteristics have been deter mined by [employer] s [place], [place]. It hasnot been lyly ared or approved by the U.S. Food and DrugAdminis tration. This assay has been validated pursuantto the CLIA regulations and is used for clinicalpurpose s. ACETONE None Detected ([facility]) (test code = 4023378) METHANOL(QUE None Detected ST) (test code = 4746337) Isopropanol( None Detected [facility]) (test code = 3055) ETHANOL None Detected Volatile (test code = Limit of Detect ion: 5 mg/dL 2968) LATRELL (test Performing Lab code = LATRELL) 15 [facility], [address] [place] [address] [place] [address] Rabia Sin MD, PhD [facility] HospitalCMV PCR, [id number] 11:44:00 Test Item Value Reference Range Interpretation Comments CMV VIRAL LOAD - Testing don e at [facility] POSITIVE (BEAKER) (test Diag nostics code = 1557) CMV VIRAL LOAD - Testing don e at [facility] NEGATIVE (BEAKER) (test Diag nostics code = 2558) BLOOD [id number] 23:00:00 Test Item Value Reference Range Interpretation Comments CULTURE (BEAKER) (test No growth in 5 days code = 1095) BLOOD [id number] 19:01:00 Test Item Value Reference Range Interpretation Comments CULTURE (BEAKER) (test No growth in 5 days code = 1095) Prepare Leuko-Red & Irrad [id number] 23:54:00 Test Item Value Reference Range Interpretation Comments CROSSMATCH (test code = 2264) COMPATIBLE Unit ABO (test code = A Pos 0758915) UNIT NUMBER (test code = [id number] 934-0) Status (test code = 4434773) TX_TIMEINCHART Blood Bank Product (test code RED BLOOD CELLS = 2263) PRODUCT CODE (test code = M7229D04 933-2) [facility] HospitalTACROLIMUS [id number] 08:47:00 Test Item Value Reference Range Interpretation Comments TACROLIMUS BLOOD 3.6 ng/mL 10.0-20.0 L Test perfor med on Colon (BEAKER) (test code Architec t Immunoassay = 657) system with Chemiluminescen t Microparticle I mmunoassay (CMIA) technolo gy. Agricultural Systems Specialist ID - AAHAMIDBASIC METABOLIC [id number] 06:07:00 Test Item Value Reference Range Interpretation Comments SODIUM (BEAKER) 142 meq/L 136-145 (test code = 381) POTASSIUM (BEAKER) 3.2 meq/L 3.5-5.1 L (test code = 379) CHLORIDE (BEAKER) 105 meq/L 98-107 (test code = 382) CO2 (BEAKER) (test 26 meq/L 22-29 code = 355) BLOOD UREA NITROGEN 27 mg/dL 7-21 H (BEAKER) (test code = 354) CREATININE (BEAKER) 1.89 mg/dL 0.57-1.25 H (test code = 358) GLUCOSE RANDOM 93 mg/dL 70-105 (BEAKER) (test code = 652) CALCIUM (BEAKER) 8.3 mg/dL 8.4-10.2 L (test code = 697) EGFR (BEAKER) (test 36 mL/min/1.73 ESTIMA ABDULLAHI GFR IS code = 1092) sq m NOT ACCURATE CREATININE CLEARANCE IN PREDICTING GLOMERULAR FILTRATION RATE . ESTIMATED GFR I S NOT APPLICABLE FOR DIALYSIS PATIEN TS. Agricultural Systems Specialist ID - CASEY [id number] 06:07:00 Test Item Value Reference Range Interpretation Comments MAGNESIUM (BEAKER) (test code = 1.8 mg/dL 1.6-2.6 627) Agricultural Systems Specialist ID - CASEY MCBC W/PLT COUNT & AUTO [id number] 04:57:00 Test Item Value Reference Range Interpretation Comments WHITE BLOOD CELL COUNT (BEAKER) 3.7 K/ L 3.5-10.5 (test code = 775) RED BLOOD CELL COUNT (BEAKER) 2.50 M/ L 4.63-6.08 L (test code = 761) HEMOGLOBIN (BEAKER) (test code = 7.9 GM/DL 13.7-17.5 L 410) HEMATOCRIT (BEAKER) (test code = 22.7 % 40.1-51.0 L 411) MEAN CORPUSCULAR VOLUME (BEAKER) 90.8 fL 79.0-92.2 (test code = 753) MEAN CORPUSCULAR HEMOGLOBIN 31.6 pg 25.7-32.2 (BEAKER) (test code = 751) MEAN CORPUSCULAR HEMOGLOBIN CONC 34.8 GM/DL 32.3-36.5 (BEAKER) (test code = 752) RED CELL DISTRIBUTION WIDTH 15.9 % 11.6-14.4 H (BEAKER) (test code = 412) PLATELET COUNT (BEAKER) (test code 50 K/CU MM 150-450 L = 756) MEAN PLATELET VOLUME (BEAKER) 11.2 fL 9.4-12.4 (test code = 754) NUCLEATED RED BLOOD CELLS (BEAKER) 0 /100 WBC 0-0 (test code = 413) NEUTROPHILS RELATIVE PERCENT 73 % (BEAKER) (test code = 429) LYMPHOCYTES RELATIVE PERCENT 13 % (BEAKER) (test code = 430) MONOCYTES RELATIVE PERCENT 7 % (BEAKER) (test code = 431) EOSINOPHILS RELATIVE PERCENT 5 % (BEAKER) (test code = 432) BASOPHILS RELATIVE PERCENT 1 % (BEAKER) (test code = 437) NEUTROPHILS ABSOLUTE COUNT 2.71 K/ L 1.78-5.38 (BEAKER) (test code = 670) LYMPHOCYTES ABSOLUTE COUNT 0.50 K/ L 1.32-3.57 L (BEAKER) (test code = 414) MONOCYTES ABSOLUTE COUNT (BEAKER) 0.27 K/ L 0.30-0.82 L (test code = 415) EOSINOPHILS ABSOLUTE COUNT 0.19 K/ L 0.04-0.54 (BEAKER) (test code = 416) BASOPHILS ABSOLUTE COUNT (BEAKER) 0.03 K/ L 0.01-0.08 (test code = 417) IMMATURE GRANULOCYTES-RELATIVE 1 % 0-1 PERCENT (BEAKER) (test code = 2801) CBC W/PLT COUNT & AUTO [id number] 06:45:00 Test Item Value Reference Range Interpretation Comments WHITE BLOOD CELL COUNT (BEAKER) 2.5 K/ L 3.5-10.5 L (test code = 775) RED BLOOD CELL COUNT (BEAKER) 1.97 M/ L 4.63-6.08 L (test code = 761) HEMOGLOBIN (BEAKER) (test code = 6.4 GM/DL 13.7-17.5 L 410) HEMATOCRIT (BEAKER) (test code = 18.6 % 40.1-51.0 L 411) MEAN CORPUSCULAR VOLUME (BEAKER) 94.4 fL 79.0-92.2 H (test code = 753) MEAN CORPUSCULAR HEMOGLOBIN 32.5 pg 25.7-32.2 H (BEAKER) (test code = 751) MEAN CORPUSCULAR HEMOGLOBIN CONC 34.4 GM/DL 32.3-36.5 (BEAKER) (test code = 752) RED CELL DISTRIBUTION WIDTH 16.1 % 11.6-14.4 H (BEAKER) (test code = 412) PLATELET COUNT (BEAKER) (test code 42 K/CU MM 150-450 L = 756) MEAN PLATELET VOLUME (BEAKER) 10.4 fL 9.4-12.4 (test code = 754) NUCLEATED RED BLOOD CELLS (BEAKER) 0 /100 WBC 0-0 (test code = 413) NEUTROPHILS RELATIVE PERCENT 67 % (BEAKER) (test code = 429) LYMPHOCYTES RELATIVE PERCENT 18 % (BEAKER) (test code = 430) MONOCYTES RELATIVE PERCENT 8 % (BEAKER) (test code = 431) EOSINOPHILS RELATIVE PERCENT 6 % (BEAKER) (test code = 432) BASOPHILS RELATIVE PERCENT 1 % (BEAKER) (test code = 437) NEUTROPHILS ABSOLUTE COUNT 1.66 K/ L 1.78-5.38 L (BEAKER) (test code = 670) LYMPHOCYTES ABSOLUTE COUNT 0.45 K/ L 1.32-3.57 L (BEAKER) (test code = 414) MONOCYTES ABSOLUTE COUNT (BEAKER) 0.20 K/ L 0.30-0.82 L (test code = 415) EOSINOPHILS ABSOLUTE COUNT 0.14 K/ L 0.04-0.54 (BEAKER) (test code = 416) BASOPHILS ABSOLUTE COUNT (BEAKER) 0.02 K/ L 0.01-0.08 (test code = 417) IMMATURE GRANULOCYTES-RELATIVE 0 % 0-1 PERCENT (BEAKER) (test code = 2801) BASIC METABOLIC [id number] 04:53:00 Test Item Value Reference Range Interpretation Comments SODIUM (BEAKER) 140 meq/L 136-145 (test code = 381) POTASSIUM (BEAKER) 3.0 meq/L 3.5-5.1 L (test code = 379) CHLORIDE (BEAKER) 104 meq/L 98-107 (test code = 382) CO2 (BEAKER) (test 24 meq/L 22-29 code = 355) BLOOD UREA NITROGEN 28 mg/dL 7-21 H (BEAKER) (test code = 354) CREATININE (BEAKER) 1.87 mg/dL 0.57-1.25 H (test code = 358) GLUCOSE RANDOM 98 mg/dL 70-105 (BEAKER) (test code = 652) CALCIUM (BEAKER) 7.9 mg/dL 8.4-10.2 L (test code = 697) EGFR (BEAKER) (test 37 mL/min/1.73 ESTIMA ABDULLAHI GFR IS code = 1092) sq m NOT ACCURATE CREATININE CLEARANCE IN PREDICTING GLOMERULAR FILTRATION RATE . ESTIMATED GFR I S NOT APPLICABLE FOR DIALYSIS PATIEN TS. Agricultural Systems Specialist ID - CASEY MCBC W/PLT COUNT & AUTO [id number] 04:31:00 Test Item Value Reference Range Interpretation Comments WHITE BLOOD CELL COUNT (BEAKER) 2.2 K/ L 3.5-10.5 L (test code = 775) RED BLOOD CELL COUNT (BEAKER) 1.89 M/ L 4.63-6.08 L (test code = 761) HEMOGLOBIN (BEAKER) (test code = 6.0 GM/DL 13.7-17.5 LL 410) HEMATOCRIT (BEAKER) (test code = 17.8 % 40.1-51.0 L 411) MEAN CORPUSCULAR VOLUME (BEAKER) 94.2 fL 79.0-92.2 H (test code = 753) MEAN CORPUSCULAR HEMOGLOBIN 31.7 pg 25.7-32.2 (BEAKER) (test code = 751) MEAN CORPUSCULAR HEMOGLOBIN CONC 33.7 GM/DL 32.3-36.5 (BEAKER) (test code = 752) RED CELL DISTRIBUTION WIDTH 16.1 % 11.6-14.4 H (BEAKER) (test code = 412) PLATELET COUNT (BEAKER) (test code 45 K/CU MM 150-450 L = 756) MEAN PLATELET VOLUME (BEAKER) 10.5 fL 9.4-12.4 (test code = 754) NUCLEATED RED BLOOD CELLS (BEAKER) 0 /100 WBC 0-0 (test code = 413) NEUTROPHILS RELATIVE PERCENT 66 % (BEAKER) (test code = 429) LYMPHOCYTES RELATIVE PERCENT 21 % (BEAKER) (test code = 430) MONOCYTES RELATIVE PERCENT 7 % (BEAKER) (test code = 431) EOSINOPHILS RELATIVE PERCENT 5 % (BEAKER) (test code = 432) BASOPHILS RELATIVE PERCENT 1 % (BEAKER) (test code = 437) NEUTROPHILS ABSOLUTE COUNT 1.42 K/ L 1.78-5.38 L (BEAKER) (test code = 670) LYMPHOCYTES ABSOLUTE COUNT 0.45 K/ L 1.32-3.57 L (BEAKER) (test code = 414) MONOCYTES ABSOLUTE COUNT (BEAKER) 0.15 K/ L 0.30-0.82 L (test code = 415) EOSINOPHILS ABSOLUTE COUNT 0.10 K/ L 0.04-0.54 (BEAKER) (test code = 416) BASOPHILS ABSOLUTE COUNT (BEAKER) 0.02 K/ L 0.01-0.08 (test code = 417) IMMATURE GRANULOCYTES-RELATIVE 1 % 0-1 PERCENT (BEAKER) (test code = 2801) [id number] 04:29:00 Test Item Value Reference Range Interpretation Comments MAGNESIUM (BEAKER) (test code = 1.7 mg/dL 1.6-2.6 627) Agricultural Systems Specialist ID - CASEY [id number] 17:55:00 Test Item Value Reference Range Interpretation Comments FERRITIN (BEAKER) (test code = 338.04 ng/mL 5.00-275.00 H 361) Agricultural Systems Specialist ID - BSIRON, TIBC, % SAT. (WITHOUT FERRITIN)2020-06-21 17:42:00 Test Item Value Reference Range Interpretation Comments IRON (BEAKER) (test code = 547) 79.0 ug/dL 40.0-160.0 TOTAL IRON BINDING CAPACITY 74 ug/dL 250-450 L (BEAKER) (test code = 769) IRON % SATURATION (2) (BEAKER) 107 % 20-55 H (test code = 2590) Agricultural Systems Specialist ID - [id number] 11:24:00 Test Item Value Reference Range Interpretation Comments PHOSPHORUS (BEAKER) (test code = 2.0 mg/dL 2.3-4.7 L 604) Agricultural Systems Specialist ID - JAVONGSARS-COV2/RT-PCR ([facility])2020-06-21 09:14:00 Test Item Value Reference Range Interpretation Comments SARS-COV2/RT-PCR (test Negative Not Detected, Negative, code = 0458089) See external report for linked test SARS-COV-2 PERFORMING LAB [facility] TARA (test code = 5491423) Negative result for this test determines that SARS-CoV-2 RNA was not present in the specimen above the Limit of Detection (LOD). However, Negative results do not preclude SARS-CoV-2 infection and should not be used as the sole basis for treatment or patient management decisions. Negative results mustbe combined with clinical observations, patient history, and epidemiological information. A false negative result may occur if a specimen is improperly collected, transported or handled. A false negative result should be considered if patient's recent exposures or clinical presentation indicate that COVID-19 (SARS-CoV-2) is likely and diagnostic tests for other causes of illness are negative. Re-testing should be considered in cases of suspected false negatives.The limit of detection for this assay is 800 copies/mL.This SARS CoV-2 test is a real-time RT-PCR test intended for the qualitative detection of nucleic acid from SARS-CoV-2 in a nasopharyngeal swab specimen collected from individuals susp ected of COVID-19 by their healthcare provider.This test has not been Food and Drug Administration (FDA) cleared or approved. This is a modified version of an approved Emergency Use Authorization (EUA) and is in the process of review by the FDA. Once authorized by the FDA, the issued EUA will be effective until the declaration that circumstances exist justifying the authorization of the emergency use of in vitro diagnostic tests for detection and/or diagnosis of COVID-19 is terminated under Section 564(b)(2) of the Act or the EUA is revoked under Section 564(g) of the Act.Fact Sheet for Healthcare Providers:https://www.[employer]Brite.[employer]/sites/default/files/product/documents/Fact_Shee d_QA_Dtlbfagip_Lycz_SZTV-YoT-5.pdfFact Sheet for Healthcare Patients:https://www.[employer]rite.[employer]/sites/default/files/product/ documents/Lwwq_Yvywe_Cymgpiqd_Nzlr_QPIU-JtA-3.pdfPerforming Laboratory:[facility], [place] [address]SGMTY METABOLIC PANEL 2020-06-21 05:39:00 Test Item Value Reference Range Interpretation Comments SODIUM (BEAKER) 136 meq/L 136-145 (test code = 381) POTASSIUM (BEAKER) 3.1 meq/L 3.5-5.1 L (test code = 379) CHLORIDE (BEAKER) 101 [...] 697) EGFR (BEAKER) (test 40 mL/min/1.73 ESTIMA ABDULLAHI GFR IS code = 1092) sq m NOT ACCURATE CREATININE CLEARANCE IN PREDICTING GLOMERULAR FILTRATION RATE . ESTIMATED GFR I S NOT APPLICABLE FOR DIALYSIS PATIEN TS. Agricultural Systems Specialist ID - PIAYA LSpecimen slightly [id number] 05:21:00 Test Item Value Reference Range Interpretation Comments MAGNESIUM (BEAKER) (test code = 1.6 mg/dL 1.6-2.6 627) Agricultural Systems Specialist ID - PIAYA LCBC W/PLT COUNT & AUTO [id number] 04:40:00 Test Item Value Reference Range Interpretation Comments WHITE BLOOD CELL COUNT (BEAKER) 3.3 K/ L 3.5-10.5 L (test code = 775) RED BLOOD CELL COUNT (BEAKER) 2.38 M/ L 4.63-6.08 L (test code = 761) HEMOGLOBIN (BEAKER) (test code = 7.5 GM/DL 13.7-17.5 L 410) HEMATOCRIT (BEAKER) (test code = 21.9 % 40.1-51.0 L 411) MEAN CORPUSCULAR VOLUME (BEAKER) 92.0 fL 79.0-92.2 (test code = 753) MEAN CORPUSCULAR HEMOGLOBIN 31.5 pg 25.7-32.2 (BEAKER) (test code = 751) MEAN CORPUSCULAR HEMOGLOBIN CONC 34.2 GM/DL 32.3-36.5 (BEAKER) (test code = 752) RED CELL DISTRIBUTION WIDTH 16.1 % 11.6-14.4 H (BEAKER) (test code = 412) PLATELET COUNT (BEAKER) (test code 59 K/CU MM 150-450 L = 756) MEAN PLATELET VOLUME (BEAKER) 10.8 fL 9.4-12.4 (test code = 754) NUCLEATED [...] (test code = 437) NEUTROPHILS ABSOLUTE COUNT 2.33 K/ L 1.78-5.38 (BEAKER) (test code = [...] 0-1 PERCENT (BEAKER) (test code = 2801) LACTIC ACID, [id number] 20:16:00 Test Item Value Reference Range Interpretation Comments LACTATE BLOOD VENOUS (2) (BEAKER) 2.38 mmol/L 0.50-2.20 H (test code = 2872) Agricultural [employer] Specialist ID - BSCOMPREHENSIVE METABOLIC [id number] 19:14:00 Test Item Value Reference Range Interpretation Comments TOTAL PROTEIN 3.8 gm/dL 6.0-8.3 L (BEAKER) (test code = 770) ALBUMIN (BEAKER) 2.8 g/dL 3.5-5.0 L (test code = 1145) ALKALINE PHOSPHATASE 291 U/L 40-150 H (BEAKER) (test code = 346) BILIRUBIN TOTAL 2.9 mg/dL 0.2-1.2 H (BEAKER) (test code = 377) SODIUM (BEAKER) (test 137 meq/L 136-145 code = 381) POTASSIUM (BEAKER) 3.3 meq/L 3.5-5.1 L (test code = 379) CHLORIDE (BEAKER) 100 meq/L 98-107 (test code = 382) CO2 (BEAKER) (test 29 meq/L 22-29 code = 355) BLOOD UREA NITROGEN 26 mg/dL 7-21 H (BEAKER) (test code = 354) CREATININE (BEAKER) 1.76 mg/dL 0.57-1.25 H (test code = 358) GLUCOSE RANDOM 196 mg/dL 70-105 H (BEAKER) (test code = 652) CALCIUM (BEAKER) 7.6 mg/dL 8.4-10.2 L (test code = 697) AST (SGOT) (BEAKER) 27 U/L 5-34 (test code = 353) ALT (SGPT) (BEAKER) 24 U/L 6-55 (test code = 347) EGFR (BEAKER) (test 39 mL/min/1.73 ESTIMA ABDULLAHI GFR IS code = 1092) sq m NOT ACCURATE CREATININE CLEARANCE IN PREDICTING GLOMERULAR FILTRATION RATE . ESTIMATED GFR I S NOT APPLICABLE FOR DIALYSIS PATIEN TS. Agricultural Systems Specialist ID - BSSpecimen slightly [id number] 18:54:00 Test Item Value Reference Range Interpretation Comments PARTIAL THROMBOPLASTIN TIME 37.1 seconds 22.5-36.0 H (BEAKER) (test code = 760) PROTHROMBIN [id number] 18:53:00 Test Item Value Reference Range Interpretation Comments PROTIME (BEAKER) (test code = 19.1 seconds 11.9-14.2 H 759) INR (BEAKER) (test code = 370) 1.65 <=5.90 Effective 11/26/2018: PT Reference Range ChangeNew: 11.9-14.2 Previous: 11.7- 14.7RECOMMENDED COUMADIN/WARFARIN INR THERAPY RANGESSTANDARD DOSE: 2.0-3.0 Includes: PROPHYLAXIS for venous thrombosis, systemic embolization; TREATMENT for venous thrombosis and/or pulmonary embolus.HIGH RISK: Target INR is2.5-3.5 for patients wiht mechanical heart valves.LACTIC ACID, [id number] 18:48:00 Test Item Value Reference Range Interpretation Comments LACTATE BLOOD VENOUS (2) (BEAKER) 2.89 mmol/L 0.50-2.20 H (test code = 2872) Agricultural Systems Specialist ID - BSCBC W/PLT COUNT & AUTO [id number] 18:38:00 Test Item Value Reference Range Interpretation Comments WHITE BLOOD CELL COUNT (BEAKER) 6.4 K/ L 3.5-10.5 (test code = 775) RED BLOOD CELL COUNT (BEAKER) 2.56 M/ L 4.63-6.08 L (test code = 761) HEMOGLOBIN (BEAKER) (test code = 8.1 GM/DL 13.7-17.5 L 410) HEMATOCRIT (BEAKER) (test code = 23.9 % 40.1-51.0 L 411) MEAN CORPUSCULAR VOLUME (BEAKER) 93.4 fL 79.0-92.2 H (test code = 753) MEAN CORPUSCULAR HEMOGLOBIN 31.6 pg 25.7-32.2 (BEAKER) (test code = 751) MEAN CORPUSCULAR HEMOGLOBIN CONC 33.9 GM/DL 32.3-36.5 (BEAKER) (test code = 752) RED CELL DISTRIBUTION WIDTH 16.2 % 11.6-14.4 H (BEAKER) (test code = [...] (test code = 437) NEUTROPHILS ABSOLUTE COUNT 5.24 K/ L 1.78-5.38 (BEAKER) (test code = [...] = 2801) BODY FLUID CELL COUNT WITH [id number] 17:52:00 Test Item Value Reference Range Interpretation Comments APPEARANCE FLUID (BEAKER) Slightly Hazy Clear A (test code = 510) COLOR FLUID (BEAKER) (test Yellow Colorless, Straw A code = 511) RBC FLUID (BEAKER) (test 725 /cu mm <=1 H code = 513) ADJUSTED WBC FLUID 1720 /cu mm <=5 H (BEAKER) (test code = 1691) LINING CELLS (BEAKER) 0 /cu mm <=1 (test code = 1590) NEUTROPHILS FLUID (BEAKER) 81 % (test code = 1656) LYMPHS FLUID (BEAKER) 6 % (test code = 488) MONO/MACROPHAGE FLUID 13 % (BEAKER) (test code = 489) EOSINOPHILS FLUID (BEAKER) 0 % (test code = 491) BASO FLUID (BEAKER) (test 0 % code = 492) CONTAINER BODY FLUID Sterile Container (BEAKER) (test code = 2873) U/S, [id number] 16:42:00Referring: Dr. Yary Eastman/ Semaj ascitic fluid for cell count and differential If Cr > 1.5, do not remove more than 3.5L of ascitic fluid. If > 3L removed, please administer 200 mL of albumin 25% (50 grams) IV x 1Labs to be ordered:->Cell CountLabs to be ordered:->Other (please add comment)Reason for Exam:->ascites [facility] JO[facility] TRANLEY : 1955 Sex: MFINAL REPORT Ultrasound guided paracentesis, 06/17/2020. Clinical History: Ascites. Sedation: None. Microfilm Duplicating Unit Supervisor: Lola. Rrt: None. Estimated Blood Loss: < 1 cc. Specimen: 3100 cc of clear yellow fluid, samples sent to laboratory. Technique: Informed consent was obtained. The risks of pain, bleeding, infection, bowel perforation,injury to adjacent structures, and adverse medication reactions [...] was achieved with 1% lidocaine, a 5 [place] one-step catheter was advanced into the peritoneal cavity under ultrasound guidance. After completion of drainage, the catheter was removed. There was no evidence of complication. Patient Disposition: The patient was discharged from the ultrasound department after the paracentesis, in good condition. Impression:Successful ultrasound guided paracentesis. Signed:Rohit Ruth Verified Date/Time: 06/17/2020 16:42:07 Reading Location: [place] [address] [facility] Reading Room BASIC METABOLIC [id number] 12:29:00 Test Item Value Reference Range Interpretation Comments SODIUM (BEAKER) 136 meq/L 136-145 (test code = 381) POTASSIUM (BEAKER) 2.5 meq/L 3.5-5.1 LL (test code = 379) CHLORIDE (BEAKER) 100 meq/L 98-107 (test code = 382) CO2 (BEAKER) (test 26 meq/L 22-29 code = 355) BLOOD UREA NITROGEN 28 mg/dL 7-21 H (BEAKER) (test code = 354) CREATININE (BEAKER) 1.93 mg/dL 0.57-1.25 H (test code = 358) GLUCOSE RANDOM 102 mg/dL 70-105 (BEAKER) (test code = 652) CALCIUM (BEAKER) 7.0 mg/dL 8.4-10.2 L (test code = 697) EGFR (BEAKER) (test 35 mL/min/1.73 ESTIMA ABDULLAHI GFR IS code = 1092) sq m NOT ACCURATE CREATININE CLEARANCE IN PREDICTING GLOMERULAR FILTRATION RATE . ESTIMATED GFR I S NOT APPLICABLE FOR DIALYSIS PATIEN TS. Agricultural Systems Specialist ID - SERGIO Dudleyn slightly ictericHEPATIC FUNCTION [id number] 11:27:00 Test Item Value Reference Range Interpretation Comments TOTAL PROTEIN (BEAKER) (test code = 3.7 gm/dL 6.0-8.3 L 770) ALBUMIN (BEAKER) (test code = 1145) 2.7 g/dL 3.5-5.0 L BILIRUBIN TOTAL (BEAKER) (test code 2.9 mg/dL 0.2-1.2 H = 377) BILIRUBIN DIRECT (BEAKER) (test 1.6 mg/dL 0.1-0.5 H code = 706) ALKALINE PHOSPHATASE (BEAKER) (test 285 U/L 40-150 H code = 346) AST (SGOT) (BEAKER) (test code = 33 U/L 5-34 353) ALT (SGPT) (BEAKER) (test code = 27 U/L 6-55 347) Agricultural Systems Specialist ELIZABETH Rivera slightly ictericPROTHROMBIN [id number] 11:04:00 Test Item Value Reference Range Interpretation Comments PROTIME (BEAKER) (test code = 19.4 seconds 11.9-14.2 H 759) INR (BEAKER) (test code = 370) 1.69 <=5.90 Effective 11/26/2018: PT Reference Range ChangeNew: 11.9-14.2 Previous: 11.7- 14.7RECOMMENDED COUMADIN/WARFARIN INR THERAPY RANGESSTANDARD DOSE: 2.0-3.0 Includes: PROPHYLAXIS for venous thrombosis, systemic embolization; TREATMENT for venous thrombosis and/or pulmonary embolus.HIGH RISK: Target INR is2.5-3.5 for patients wiht mechanical heart valves.CBC W/PLT COUNT & AUTO [id number] 10:57:00 Test Item Value Reference Range Interpretation Comments WHITE BLOOD CELL COUNT (BEAKER) 6.7 K/ L 3.5-10.5 (test code = 775) RED BLOOD CELL COUNT (BEAKER) 2.63 M/ L 4.63-6.08 L (test code = 761) HEMOGLOBIN (BEAKER) (test code = 8.4 GM/DL 13.7-17.5 L 410) HEMATOCRIT (BEAKER) (test code = 24.4 % 40.1-51.0 L 411) MEAN CORPUSCULAR VOLUME (BEAKER) 92.8 fL 79.0-92.2 H (test code = 753) MEAN CORPUSCULAR HEMOGLOBIN 31.9 pg 25.7-32.2 (BEAKER) (test code = 751) MEAN CORPUSCULAR HEMOGLOBIN CONC 34.4 GM/DL 32.3-36.5 (BEAKER) (test code = 752) RED CELL DISTRIBUTION WIDTH 16.1 % 11.6-14.4 H (BEAKER) (test code = 412) PLATELET COUNT (BEAKER) (test code 77 K/CU MM 150-450 L = 756) MEAN [...] (test code = 415) EOSINOPHILS ABSOLUTE COUNT 0.19 K/ L 0.04-0.54 (BEAKER) (test code = 416) BASOPHILS ABSOLUTE COUNT (BEAKER) 0.05 K/ L 0.01-0.08 (test code = 417) IMMATURE GRANULOCYTES-RELATIVE 0 % 0-1 PERCENT (BEAKER) (test code = 2801) U/S, [id number] 11:34:00Referring: Dr. Yary Eastman/ Semaj ascitic fluid for cell count and differential If Cr > 1.5, do not remove more than 4L of ascitic fluid. If > 3L removed, please administer 200 mL of albumin 25% (50 grams) IV x 1Labs to be ordered:->Other (please add comment)Labs to be ordered:->CellCountReason for Exam:->ascites [facility] : 1955 Sex: MFINAL REPORT Ultrasound guided paracentesis Clinical History: A scites. Sedation: None. Microfilm Duplicating Unit Supervisor: Aure Huerta PA-C Supervising Physician: Sixto Martinez MD Rrt: None. Estimated Blood Loss: < 1 mL. Specimen: 3000 mL of clear yellow fluid, samples sent to laboratory. Technique: Informed consent was obtained. The risks of pain, bleeding, infection, bowel perforation, injury to adjacent structures, and adverse medication reactions were discussed with the patient. After informed consent was obtained, the patient's abdomen wasscanned. The right lower quadrant of the abdomen was selected for paracentesis. After the largest fluid pocket area was marked, and the anterior abdominal wall was evaluated with color Doppler to exclude presence of blood vessels traversing the area, the skin was prepped and draped in the usual sterile manner. After local anesthesia was achieved with lidocaine, a 5 [place] one-step catheter was advanced into the peritoneal cavity under ultrasound guidance. After completion of drainage, the catheter was removed. There was no evidence of complication. Impression:Successful ultrasound guided paracentesis. Signed: Sixto Martinez Verified Date/Time: 06/13/2020 11:34:44 Reading Location: [address] Ultrasound Reading Room 11:34 AMBODY FLUID CELL COUNT WITH [id number] 18:14:00 Test Item Value Reference Range Interpretation Comments APPEARANCE FLUID (BEAKER) Slightly Hazy Clear A (test code = 510) COLOR FLUID (BEAKER) (test Yellow Colorless, Straw A code = 511) RBC FLUID (BEAKER) (test 550 /cu mm <=1 H code = 513) ADJUSTED WBC FLUID 100 /cu mm <=5 H (BEAKER) (test code = 1691) LINING CELLS (BEAKER) 0 /cu mm <=1 (test code = 1590) NEUTROPHILS FLUID (BEAKER) 56 % (test code = 1656) LYMPHS FLUID (BEAKER) 16 % (test code = 488) MONO/MACROPHAGE FLUID 28 % (BEAKER) (test code = 489) EOSINOPHILS FLUID (BEAKER) 0 % (test code = 491) BASO FLUID (BEAKER) (test 0 % code = 492) CONTAINER BODY FLUID Sterile Container (BEAKER) (test code = 2873) PROTHROMBIN [id number] 13:40:00 Test Item Value Reference Range Interpretation Comments PROTIME (BEAKER) (test code = 19.4 seconds 11.9-14.2 H 759) INR (BEAKER) (test code = 370) 1.69 <=5.90 Effective 11/26/2018: PT Reference Range ChangeNew: 11.9-14.2 Previous: 11.7- 14.7RECOMMENDED COUMADIN/WARFARIN INR THERAPY RANGESSTANDARD DOSE: 2.0-3.0 Includes: PROPHYLAXIS for venous thrombosis, systemic embolization; TREATMENT for venous thrombosis and/or pulmonary embolus.HIGH RISK: Target INR is2.5-3.5 for patients wiht mechanical heart valves.[id number] 13:40:00 Test Item Value Reference Range Interpretation Comments PARTIAL THROMBOPLASTIN TIME 36.6 seconds 22.5-36.0 H (BEAKER) (test code = 760) CBC W/PLT COUNT & AUTO [id number] 13:30:00 Test Item Value Reference Range Interpretation Comments WHITE BLOOD CELL COUNT (BEAKER) 5.6 K/ L 3.5-10.5 (test code = 775) RED BLOOD CELL COUNT (BEAKER) 2.81 M/ L 4.63-6.08 L (test code = 761) HEMOGLOBIN (BEAKER) (test code = 9.1 GM/DL 13.7-17.5 L 410) HEMATOCRIT (BEAKER) (test code = 26.5 % 40.1-51.0 L 411) MEAN CORPUSCULAR VOLUME (BEAKER) 94.3 fL 79.0-92.2 H (test code = 753) MEAN CORPUSCULAR HEMOGLOBIN 32.4 pg 25.7-32.2 H (BEAKER) (test code = 751) MEAN CORPUSCULAR HEMOGLOBIN CONC 34.3 GM/DL 32.3-36.5 (BEAKER) (test code = 752) [...] (test code = 431) EOSINOPHILS RELATIVE PERCENT 5 % (BEAKER) (test code = 432) BASOPHILS RELATIVE PERCENT 1 % (BEAKER) (test code = 437) NEUTROPHILS ABSOLUTE COUNT 4.03 K/ L 1.78-5.38 (BEAKER) (test code = 670) LYMPHOCYTES ABSOLUTE COUNT 0.88 K/ L 1.32-3.57 L (BEAKER) (test code = 414) MONOCYTES ABSOLUTE COUNT (BEAKER) 0.33 K/ L 0.30-0.82 (test code = 415) EOSINOPHILS ABSOLUTE COUNT 0.25 K/ L 0.04-0.54 (BEAKER) (test code = 416) BASOPHILS ABSOLUTE COUNT (AKER) 0.05 K/ L 0.01-0.08 (test code = 417) IMMATURE GRANULOCYTES-RELATIVE 0 % 0-1 PERCENT (AKER) (test code = 2801) EBV-VCA antibody, [id number] 12:08:00 Test Item Value Reference Range Interpretation Comments EBV Ab VCA, IgG (test 21.5 U/mL 0-17.9 H [place] sample code = 6702369) should be collected and tested no less than 2-4 weeks. Negative <18.0 Equivocal 18.0 - 21.9 Positive >21.9 LATRELL (test code = LATRELL) Performed at: [facility] [id number] Director: Ortega Santiago MD, Phone: [phone] Lab Interpretation Abnormal (test code = 73450-4) [facility] [id number] 11:48:00 Test Item Value Reference Range Interpretation Comments SCAN RESULT (test code = 7894316) [id number] 11:48:00Scan ResultQUEST NON-INTERFACED LABCHI [facility] HospitalCARDIAC CATH REPORT - [id number] 10:09:47Ordered by an unspecified provider.[facility] HospitalFLOW PRA CLASS I WITH REFLEX TO ANTIBODY [id number] 13:37:00 Test Item Value Reference Range Interpretation Comments Flow Class I Percent Positive (test 0 code = 3229) [facility] II WITH REFLEX TO ANTIBODY [id number] 13:37:00 Test Item Value Reference Range Interpretation Comments Flow Class II Percent Positive (test 0 code = 3231) [facility] HospitalTACROLIMUS [id number] 12:17:00 Test Item Value Reference Range Interpretation Comments TACROLIMUS BLOOD (AKER) (test 7.5 ng/mL 10.0-20.0 L code = 657) Agricultural Systems Specialist ID - MARCELLE FPOCT-GLUCOSE [id number] 08:31:00 Test Item Value Reference Range Interpretation Comments POC-GLUCOSE METER 119 mg/dL 70-110 H : TESTED A T [facility] 6720 (BEAKER) (test code = PARESH Garcia [facility], 1538) [address]: Agricultural Systems Specialist/Techni demetrice ID = [id number] for Adams Ordaz BASIC METABOLIC [id number] 06:20:00 Test Item Value Reference Range Interpretation [...] 697) EGFR (BEAKER) (test 13 mL/min/1.73 ESTIMA ABDULLAHI GFR IS code = 1092) sq m NOT ACCURATE CREATININE CLEARANCE IN PREDICTING GLOMERULAR FILTRATION RATE . ESTIMATED GFR I S NOT APPLICABLE FOR DIALYSIS PATIEN TS. Agricultural Systems Specialist ID - [id number] 06:18:00 Test Item Value Reference Range Interpretation Comments MAGNESIUM (BEAKER) (test code = 1.8 mg/dL 1.6-2.6 627) Agricultural Systems Specialist ID - [id number] 06:18:00 Test Item Value Reference Range Interpretation Comments PHOSPHORUS (BEAKER) (test code = 4.2 mg/dL 2.3-4.7 604) Agricultural Systems Specialist ID - EDASIHEPATIC FUNCTION [id number] 06:18:00 Test Item Value Reference Range Interpretation [...] (test code = 15 U/L 6-55 347) Agricultural Systems Specialist ID - EDASICBC W/PLT COUNT & AUTO [id number] 06:07:00 Test Item Value Reference Range Interpretation [...] H PERCENT (BEAKER) (test code = 2801) PROTHROMBIN [id number] 06:04:00 Test Item Value Reference Range Interpretation [...] Range Interpretation Comments BNP (test code = 08968-7) 996 pg/mL 0-100 H LATRELL (test code = LATRELL) Agricultural Systems Specialist ID - DB Lab Interpretation (test Abnormal code = 07048-7) [facility] Hospital[facility]-TYPE NATRIURETIC FACTOR (BNP)2020-05-01 06:00:00 Test Item Value Reference Range Interpretation Comments B-TYPE NATRIURETIC PEPTIDE (BEAKER) 996 pg/mL 0-100 H (test code = 700) Agricultural Systems Specialist ID - DBPOCT-GLUCOSE [id number] 13:59:00 Test Item Value Reference Range Interpretation Comments POC-GLUCOSE METER 123 mg/dL 70-110 H : TESTED A T [facility] 6720 (BEAKER) (test code = PARESH Garcia [place], 1538) [address]: Agricultural Systems Specialist/Techni demetrice ID = [id number] for LEEJUAN M ROBISON POCT-GLUCOSE [id number] 13:54:00 Test Item Value Reference Range Interpretation Comments POC-GLUCOSE METER 78 mg/dL 70-110 : TESTED A T [facility] 6720 (BEAKER) (test code = PARESH [place], 1538) [address]: Agricultural Systems Specialist/Techni demetrice ID = [id number] for KRISTINA PERRYABEL TACROLIMUS [id number] 10:49:00 Test Item Value Reference Range Interpretation Comments TACROLIMUS BLOOD (BEAKER) (test 10.9 ng/mL 10.0-20.0 code = 657) Agricultural Systems Specialist ID - JUNO WCBC W/PLT COUNT & AUTO [id number] 06:48:00 Test Item Value Reference Range Interpretation [...] (BEAKER) (test code = 2801) BASIC METABOLIC [id number] 06:35:00 Test Item Value Reference Range Interpretation [...] 697) EGFR (BEAKER) (test 13 mL/min/1.73 ESTIMA ABDULLAHI GFR IS code = 1092) sq m NOT ACCURATE CREATININE CLEARANCE IN PREDICTING GLOMERULAR FILTRATION RATE . ESTIMATED GFR I S NOT APPLICABLE FOR DIALYSIS PATIEN TS. Agricultural Systems Specialist ID - CASEY [id number] 06:25:00 Test Item Value Reference Range Interpretation Comments MAGNESIUM (BEAKER) 1.8 mg/dL 1.6-2.6 Specimen slightly (test code = 627) hemolyzed Agricultural Systems Specialist ID - CASEY [id number] 06:25:00 Test Item Value Reference Range Interpretation Comments PHOSPHORUS (BEAKER) 4.5 mg/dL 2.3-4.7 Specimen slightly (test code = 604) hemolyzed Agricultural Systems Specialist ID - CASEY MHEPATIC FUNCTION [id number] 06:25:00 Test Item Value Reference Range Interpretation [...] Specimen slightly (test code = 347) hemolyzed Agricultural Systems Specialist ID - CASEY MB-TYPE NATRIURETIC FACTOR (BNP)2020-04-30 06:20:00 Test Item Value Reference Range Interpretation Comments B-TYPE NATRIURETIC PEPTIDE (BEAKER) 890 pg/mL 0-100 H (test code = 700) Agricultural Systems Specialist ID - EDASIPROTHROMBIN [id number] 06:11:00 Test Item Value Reference Range Interpretation Comments PROTIME (BEAKER) (test code = 26.2 seconds 11.9-14.2 H 759) INR (BEAKER) (test code = 370) 2.48 <=5.90 Effective 11/26/2018: PT Reference Range ChangeNew: 11.9-14.2 Previous: 11.7- 14.7RECOMMENDED COUMADIN/WARFARIN INR THERAPY RANGESSTANDARD DOSE: 2.0-3.0 Includes: PROPHYLAXIS for venous thrombosis, systemic embolization; TREATMENT for venous thrombosis and/or pulmonary embolus.HIGH RISK: Target INR is2.5-3.5 for patients wiht mechanical heart valves.HLA TYPING [id number] 23:22:00 Test Item Value Reference Range Interpretation [...] AG 1-2 (test code = 3249) 04:01 [facility] HospitalHLA [facility]YPING [id number] 23:17:00 Test Item Value Reference Range Interpretation [...] HLA-B BW2 (test code = 3235) 4 [facility] HospitalBLOOD [id number] 21:00:00 Test Item Value Reference Range Interpretation Comments CULTURE (BEAKER) (test No growth in 5 days code = 1095) BLOOD [id number] 21:00:00 Test Item Value Reference Range Interpretation Comments CULTURE (BEAKER) (test No growth in 5 days code = 1095) POCT-GLUCOSE [id number] 12:11:00 Test Item Value Reference Range Interpretation Comments POC-GLUCOSE METER 84 mg/dL 70-110 : TESTED A T [facility] 6720 (BEAKER) (test code = PARESH [place], 1538) [address]: Agricultural Systems Specialist/Techni demetrice ID = [id number] for Adams Villeda TACROLIMUS [id number] 08:57:00 Test Item Value Reference Range Interpretation Comments TACROLIMUS BLOOD (BEAKER) (test 7.8 ng/mL 10.0-20.0 L code = 657) Agricultural Systems Specialist ID - JUNO WPOCT-GLUCOSE [id number] 08:34:00 Test Item Value Reference Range Interpretation Comments POC-GLUCOSE METER 81 mg/dL 70-110 : TESTED A T [facility] 6720 (BEAKER) (test code = PARESH Garcia [place], 1538) [address]: Agricultural Systems Specialist/Techni demetrice ID = [id number] for Yosi it, Kong[place] BASIC METABOLIC [id number] 07:02:00 Test Item Value Reference Range Interpretation [...] 697) EGFR (BEAKER) (test 13 mL/min/1.73 ESTIMA ABDULLAHI GFR IS code = 1092) sq m NOT ACCURATE CREATININE CLEARANCE IN PREDICTING GLOMERULAR FILTRATION RATE . ESTIMATED GFR I S NOT APPLICABLE FOR DIALYSIS PATIEN TS. Agricultural Systems Specialist ID - EDASIB-TYPE NATRIURETIC FACTOR (BNP)2020-04-29 06:49:00 Test Item Value Reference Range Interpretation Comments B-TYPE NATRIURETIC PEPTIDE (BEAKER) 948 pg/mL 0-100 H (test code = 700) Agricultural Systems Specialist ID - [id number] 06:46:00 Test Item Value Reference Range Interpretation Comments MAGNESIUM (BEAKER) (test code = 1.8 mg/dL 1.6-2.6 627) Agricultural Systems Specialist ID - [id number] 06:46:00 Test Item Value Reference Range Interpretation Comments PHOSPHORUS (BEAKER) (test code = 4.1 mg/dL 2.3-4.7 604) Agricultural Systems Specialist ID - EDASIHEPATIC FUNCTION [id number] 06:46:00 Test Item Value Reference Range Interpretation [...] (test code = 11 U/L 6-55 347) Agricultural Systems Specialist ID - EDASIPROTHROMBIN TIME/[id number] 06:41:00 Test Item Value Reference Range Interpretation [...] mechanical heart valves.CBC W/PLT COUNT & AUTO [id number] 06:40:00 Test Item Value Reference Range Interpretation [...] PERCENT (BEAKER) (test code = 2801) POCT-GLUCOSE [id number] 21:59:00 Test Item Value Reference Range Interpretation Comments POC-GLUCOSE METER 90 mg/dL 70-110 : TESTED A T [facility] 6720 (ANYIAKER) (test code = PARESH Garcia [place], 1538) [address]: Agricultural Systems Specialist/Techni demetrice ID = [id number] for KALL ON, KAM POCT-GLUCOSE [id number] 17:53:00 Test Item Value Reference Range Interpretation Comments POC-GLUCOSE METER 87 mg/dL 70-110 : TESTED A T [facility] 6720 (BEAKER) (test code = PARESH Garcia [place], 1538) [address]: Agricultural Systems Specialist/Techni demetrice ID = [id number] for Yosi it, Kyaira POCT-GLUCOSE [id number] 12:31:00 Test Item Value Reference Range Interpretation Comments POC-GLUCOSE METER 69 mg/dL 70-110 L : TESTED A T [facility] 6720 (BEAKER) (test code = PARESH Garcia [place], 1538) [address]: Agricultural Systems Specialist/Techni demetrice ID = [id number] for Yosi it, Kyaira U/S, PELVIS, WITH [id number] 12:18:00Referring: Dr. 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 POCT-GLUCOSE [id number] 07:43:00 Test Item Value Reference Range Interpretation Comments POC-GLUCOSE METER 85 mg/dL 70-110 : TESTED A T [facility] 6720 (BEAKER) (test code = PARESH [place], 1538) [address]: Agricultural Systems Specialist/Techni demetrice ID = [id number] for Adams Villeda IgG subclasses [id number] 22:37:00 Test Item Value Reference Range Interpretation Comments IgG 1 (test code = 60 mg/dL 382-929 L 2466-1) Igg 2 (test code = 36 mg/dL 241-700 L 9268141) IgG 3 (test code = 3 mg/dL 22-178 L 2468-7) Igg 4 (test code = <0.5 4-86 L 0803353) Igg,Serum (test code = 107 mg/dL 600-1540 L 4097317) LATRELL (test code = LATRELL) Performing Lab E[facility] [address] [place] [address] Chun Dunne MD, PhD, JEAN Lab Interpretation (test Abnormal code = 71376-9) [facility] [id number] 22:13:00 Test Item Value Reference Range Interpretation Comments POC-GLUCOSE METER 79 mg/dL 70-110 : Notified RN/MD: TESTED ([facility]) (test code = AT [address] 1538) [facility], [facility] 30: Agricultural Systems Specialist/Techni demetrice ID = [id number] for KENNETH MORAES POCT-GLUCOSE [id number] 18:06:00 Test Item Value Reference Range Interpretation Comments POC-GLUCOSE METER 105 mg/dL 70-110 : TESTED A T [place] [address] ([facility]) (test code = PARESH Garcia [facility], 1538) [id number]: Agricultural Systems Specialist/Techni demetrice ID = [id number] for KWASI GARCIA IRIS POC ACTIVATED CLOTTING [id number] 17:07:00 Test Item Value Reference Range Interpretation Comments Activated Clotting Time 147 sec : 74 -137 seconds, (test code = 441) Baseline: TESTED AT [address], [facility] 30: Agricultural Systems Specialist/Techni demetrice ID = [id number] for BA TTAD, [id number] 17:07:00 Test Item Value Reference Range Interpretation Comments ACTIVATED CLOTTING TIME 147 sec : 74 -137 seconds, ([facility]) (test code = Baseli ne: TESTED AT [facility]) [address], [facility] 30: Agricultural Systems Specialist/Techni demetrice ID = [id number] for BA TTAD, SEMAJ POCT-GLUCOSE [id number] 17:05:00 Test Item Value Reference Range Interpretation Comments POC-GLUCOSE METER 127 mg/dL 70-110 H : TESTED A T [facility] 6720 (BEAKER) (test code [facility], = 1538) 55120: Agricultural Systems Specialist/Techni demetrice ID = [id number] for PILAR SÁNCHEZ (V), DYLLAN HEMOGLOBIN AND [id number] 17:00:00 Test Item Value Reference Range Interpretation Comments HEMOGLOBIN (BEAKER) (test code = 8.3 GM/DL 13.7-17.5 L 410) HEMATOCRIT (BEAKER) (test code = 24.8 % 40.1-51.0 L 411) Agricultural Systems Specialist ID - [id number]-GLUCOSE [id number] 15:34:00 Test Item Value Reference Range Interpretation Comments POC-GLUCOSE METER 132 mg/dL 70-110 H : TESTED A T [facility] 6720 (BEAKER) (test code = [facility], 153) 46691: Agricultural Systems Specialist/Techni demetrice ID = [id number] for BA TTAD, SEMAJ POCT-GLUCOSE [id number] 15:23:00 Test Item Value Reference Range Interpretation Comments POC-GLUCOSE METER 63 mg/dL 70-110 L : TESTED A T [facility] 6720 (BEAKER) (test code = [facility], 153) 95073: Agricultural Systems Specialist/Techni demetrice ID = [id number] for RYAN MARCUS MORENO [id number] 14:00:00 Test Item Value Reference Range Interpretation Comments ACTIVATED CLOTTING TIME 252 sec : 74 -137 seconds, (BEAKER) (test code = Baseli ne: TESTED AT 441) [facility] [address] [facility], 770 30: Agricultural Systems Specialist/Techni demetrice ID = [id number] for Ortiz SANCHEZ POCT-GLUCOSE [id number] 11:36:00 Test Item Value Reference Range Interpretation Comments POC-GLUCOSE METER 75 mg/dL 70-110 : TESTED A T [facility] 6720 (BEAKER) (test code = [facility], 153) 09908: Agricultural Systems Specialist/Techni demetrice ID = [id number] for POLO MACK LO POCT-GLUCOSE [id number] 10:10:00 Test Item Value Reference Range Interpretation Comments POC-GLUCOSE METER 79 mg/dL 70-110 : TESTED A T [facility] 6720 (BEAKER) (test code = [facility] [place], 1538) 38438: Agricultural Systems Specialist/Techni demetrice ID = [id number] for JAMILA CAPPS TACROLIMUS [id number] 09:38:00 Test Item Value Reference Range Interpretation Comments TACROLIMUS BLOOD (BEAKER) (test 12.2 ng/mL 10.0-20.0 code = 657) Agricultural Systems Specialist ID - SAMY MCKEEBASIC METABOLIC [id number] 06:45:00 Test Item Value Reference Range Interpretation [...] 697) EGFR (BEAKER) (test 12 mL/min/1.73 ESTIMA ABDULLAHI GFR IS code = 1092) sq m NOT ACCURATE CREATININE CLEARANCE IN PREDICTING GLOMERULAR FILTRATION RATE . ESTIMATED GFR I S NOT APPLICABLE FOR DIALYSIS PATIEN TS. Agricultural Systems Specialist ID - EDASISpecimen slightly gakbsqlDCSVGEZVP9013-75-53 06:43:00 Test Item Value Reference Range Interpretation Comments MAGNESIUM (BEAKER) (test code = 1.8 mg/dL 1.6-2.6 627) Agricultural Systems Specialist ID - UPZGZFBIQPEWDCH9317-15-79 06:43:00 Test Item Value Reference Range Interpretation Comments PHOSPHORUS (BEAKER) (test code = 4.2 mg/dL 2.3-4.7 604) Agricultural Systems Specialist ID - EDASIHEPATIC FUNCTION [id number] 06:43:00 Test Item Value Reference Range Interpretation [...] (test code = 11 U/L 6-55 347) Agricultural Systems Specialist ID - EDASISpecimen slightly ictericB-TYPE NATRIURETIC FACTOR (BNP) 2020-04-27 06:40:00 Test Item Value Reference Range Interpretation Comments B-TYPE NATRIURETIC PEPTIDE (BEAKER) 871 pg/mL 0-100 H (test code = 700) Agricultural Systems Specialist ID - PIAYA LCBC W/PLT COUNT & AUTO [id number] 06:38:00 Test Item Value Reference Range Interpretation [...] PERCENT (BEAKER) (test code = 2801) PROTHROMBIN TIME/[id number] 06:26:00 Test Item Value Reference Range Interpretation [...] is2.5-3.5 for patients wiht mechanical heart valves.POCT-GLUCOSE [id number] 19:59:00 Test Item Value Reference Range Interpretation Comments POC-GLUCOSE METER 108 mg/dL 70-110 : TESTED A T [facility] 6720 (BEAKER) (test code = PARESH Garcia [facility], 1538) 76275: Agricultural Systems Specialist/Techni demetrice ID = [id number] for Lesa Pritchett U/S, ABDOMINAL, [id number] 17:14:00Referring: Dr. Yary Eastman/ [place]auate Liver lesions, and Hepatic Vasculature with Doppler. Determine amount of ascites - to determine need for ParacentesisReason for exam:- >Evaluate Liver lesions, and Hepatic Vasculature with DopplerHx of Liver cystReason for exam:->Determine amount of ascites - to determine need for ParacentesisShould this be performed at the bedside?->Yes [facility] 1955 Sex: MFINAL [...] MDReport Verified Date/Time: 04/26/2020 17:14:41 U/S, DUPLEX, [id number] 17:14:00Referring: Dr. Yary Eastman/ [place] for exam:->Eval liver lesions and hepatic vasculature wDopplers- Determine amt of ascites to determine for paracentesisShould [facility] : 1955 Sex: MFINAL [...] Alyx Valentine MDReport Verified Date/Time: 04/26/2020 17:14:41 POCT- GLUCOSE [id number] 12:29:00 Test Item Value Reference Range Interpretation Comments POC-GLUCOSE METER 100 mg/dL 70-110 : TESTED A T [facility] 6720 (BEAKER) (test code = [facility] [place], 1538) 31410: Agricultural Systems Specialist/Techni demetrice ID = [id number] for Adams Ordaz [id number] 10:27:00 Test Item Value Reference Range Interpretation Comments Haptoglobin (test code = 15 mg/dL 14258 4542-7) LATRELL (test code = LATRELL) Agricultural Systems Specialist ID - ABDULKADIRIANG Lab Interpretation (test Normal code = 40894-6) [facility] 10:27:00 Test Item Value Reference Range Interpretation Comments HAPTOGLOBIN (BEAKER) (test code = 15 mg/dL 14258 366) Agricultural Systems Specialist ID - ROSIANGCBC W/PLT COUNT & AUTO [id number] 10:04:00 Test Item Value Reference Range Interpretation Comments WHITE BLOOD CELL COUNT (BEAKER) 1.5 K/ L 3.5-10.5 L (test code = 775) RED BLOOD CELL COUNT (BEAKER) 1.66 M/ L 4.63-6.08 L (test code [...] /100 WBC 0-0 (test code = 413) VITAMIN B12 AND [id number] 10:02:00 Test Item Value Reference Range Interpretation Comments VITAMIN B12 (BEAKER) (test code = 1346 pg/mL 213-816 H 774) FOLATE (BEAKER) (test code = 362) 9.20 ng/mL >=7.00 Agricultural Systems Specialist ID - RMManual [id number] 10:00:00 Test Item Value Reference Range Interpretation [...] = 3438) LATRELL (test code = LATRELL) Agricultural Systems Specialist ID - [id number] ID - Sadia Reeder comments: Slide comments: Lab Interpretation (test Abnormal code = 05138-2) [facility](CELLAVISION MANUAL DIFF)2020-04-26 10:00:00 Test Item Value Reference [...] CONCENTRATION Decreased (CELLAVISION)(BEAKER) (test code = 3438) Agricultural Systems Specialist ID - [id number] ID - Sadia Reeder comments: Slide comments: Reticulocyte [id number] 08:41:00 Test Item Value Reference Range Interpretation Comments % Retic (test code = 3.2 % 0.5-1.8 H 71687-8) LATRELL (test code = LATRELL) Agricultural Systems Specialist ID - [id number] Lab Interpretation (test Abnormal code = 26149-2) [facility] HospitalRETICULOCYTE [id number] 08:41:00 Test Item Value Reference Range Interpretation Comments RETICULOCYTE COUNT PCT (BEAKER) (test 3.2 % 0.5-1.8 H code = 575) Agricultural Systems Specialist ID - [id number] W/PLT COUNT & AUTO [id number] 08:35:00 Test Item Value Reference Range Interpretation [...] slightly hemolyzed LATRELL (test code = LATRELL) Agricultural Systems Specialist ID - MARLINE Lab Interpretation Normal (test code = 23628-0) [facility] HospitalLACT[facility] DEHYDROGENASE (LDH)2020-04-26 08:34:00 Test Item Value Reference Range Interpretation Comments LACTATE DEHYDROGENASE 156 U/L 125-220 Specim en slightly (BEAKER) (test code = hemoly zed 635) Agricultural Systems Specialist ID - JAVONGTACROLIMUS [id number] 08:33:00 Test Item Value Reference Range Interpretation Comments TACROLIMUS BLOOD (BEAKER) (test 5.6 ng/mL 10.0-20.0 L code = 657) Agricultural Systems Specialist ID - JUNO WPOCT-GLUCOSE [id number] 07:58:00 Test Item Value Reference Range Interpretation Comments POC-GLUCOSE METER 87 mg/dL 70-110 : TESTED A T [facility] 6720 (BEAKER) (test code = [facility] [place], 1538) 99463: Agricultural Systems Specialist/Techni demetrice ID = [id number] for Adams Villeda [id number] 06:19:00 Test Item Value Reference Range Interpretation Comments MAGNESIUM (BEAKER) 2.0 mg/dL 1.6-2.6 Specimen slightly (test code = 627) hemolyzed Agricultural Systems Specialist ID - ppkutUHMBQTRJMP4622-89-52 06:19:00 Test Item Value Reference Range Interpretation Comments PHOSPHORUS (BEAKER) 5.4 mg/dL 2.3-4.7 H Specimen slightly (test code = 604) hemolyzed Agricultural Systems Specialist ID - edasiHEPATIC FUNCTION [id number] 06:19:00 Test Item Value Reference Range Interpretation [...] Specimen slightly (test code = 347) hemolyzed Agricultural Systems Specialist ID - edasiBASIC METABOLIC [id number] 06:19:00 Test Item Value Reference Range Interpretation [...] 697) EGFR (BEAKER) (test 11 mL/min/1.73 ESTIMA ABDULLAHI GFR IS code = 1092) sq m NOT ACCURATE CREATININE CLEARANCE IN PREDICTING GLOMERULAR FILTRATION RATE . ESTIMATED GFR I S NOT APPLICABLE FOR DIALYSIS PATIEN TS. Agricultural Systems Specialist ID - edasiB-TYPE NATRIURETIC FACTOR (BNP)2020-04-26 06:14:00 Test Item Value Reference Range Interpretation Comments B-TYPE NATRIURETIC PEPTIDE (BEAKER) 616 pg/mL 0-100 H (test code = 700) Agricultural Systems Specialist ID - edasiPROTHROMBIN TIME/[id number] 05:58:00 Test Item Value Reference Range Interpretation [...] is2.5-3.5 for patients wiht mechanical heart valves.POCT-GLUCOSE [id number] 22:18:00 Test Item Value Reference Range Interpretation Comments POC-GLUCOSE METER 90 mg/dL 70-110 : TESTED A T [facility] 6720 (BEAKER) (test code = [facility] [place], 1538) 32749: Agricultural Systems Specialist/Techni demetrice ID = [id number] for Lesa Kay BLOOD GAS, [id number] 21:59:00 Test Item Value Reference Range Interpretation [...] FIO2 (BEAKER) (test code = 1819) 21.0 [id number] 21:00:00 Test Item Value Reference Range Interpretation Comments FERRITIN (BEAKER) (test code = 150.49 ng/mL 5.00-275.00 361) Agricultural Systems Specialist ID - BSVitamin D, 33-[id number] 20:47:00 Test Item Value Reference Range Interpretation Comments Vitamin D 25-Hydroxy 8.1 ng/mL 6.6-49.9 (test code = 2764) LATRELL (test code = LATRELL) Effective 04/10/2017: Reference Range ChangeNew: 6.6-49.9 ng/mL Previous: 13.0-47.8 ng/mL Recommended Vitamin D Target Range: 30.0-40.0 ng/mLOperator ID - DB Lab Interpretation (test Normal code = 10264-7) [facility]VITAMIN D, [id number] 20:47:00 Test Item Value Reference Range Interpretation Comments VITAMIN D 25-OH (BEAKER) (test code 8.1 ng/mL 6.6-49.9 = 2764) Effective 04/10/2017: Reference Range ChangeNew: 6.6-49.9 ng/mL Previous: 13.0-47.8 ng/mLRecommended Vitamin D Target Range: 30.0-40.0 ng/mLOperator ID - DBIRON, TIBC, % SAT. (WITHOUT FERRITIN)2020-04-25 20:26:00 Test Item Value Reference Range Interpretation Comments IRON (BEAKER) (test code = 547) 54.0 ug/dL 40.0-160.0 TOTAL IRON BINDING CAPACITY 115 ug/dL 250-450 L (BEAKER) (test code = 769) IRON % SATURATION (2) (BEAKER) 47 % 20-55 (test code = 2590) Agricultural Systems Specialist ID - DBPOCT-GLUCOSE [id number] 15:26:00 Test Item Value Reference Range Interpretation Comments POC-GLUCOSE METER 84 mg/dL 70-110 : TESTED A T [facility] 6720 (BEAKER) (test [facility] = [facility], 1538) 74982: Agricultural Systems Specialist/Techni demetrice ID = [id number] for ARNAUD KINSEY POCT-GLUCOSE [id number] 11:35:00 Test Item Value Reference Range Interpretation Comments POC-GLUCOSE METER 89 mg/dL 70-110 : TESTED A T [facility] 6720 (BEAKER) (test code = [employer] [facility], 1538) 97679: Agricultural Systems Specialist/Techni demetrice ID = [id number] for HIDA LGO, AGLAE TACROLIMUS [id number] 10:55:00 Test Item Value Reference Range Interpretation Comments TACROLIMUS BLOOD (BEAKER) (test 9.5 ng/mL 10.0-20.0 L code = 657) Agricultural Systems Specialist ID - MARCELLE FTACROLIMUS [id number] 10:55:00 Test Item Value Reference Range Interpretation Comments TACROLIMUS BLOOD (BEAKER) (test 11.4 ng/mL 10.0-20.0 code = 657) Agricultural Systems Specialist ID [place] IBANEZ FPOCT-GLUCOSE [id number] 07:51:00 Test Item Value Reference Range Interpretation Comments POC-GLUCOSE METER 110 mg/dL 70-110 : [facility] ([facility]ER[facility] (test code = [facility] [place], 1538) [address]: Agricultural Systems Specialist/Techni demetrice ID = [id number] for GAIL ALVARENGA [id number] 06:18:00 Test Item Value Reference Range Interpretation Comments Fibrinogen (test code = 3255-7) 282 mg/dl 225-434 Lab Interpretation (test code = Normal 54910-6) [facility] HospitalFIBRINOGEN2020-10-26 06:18:00 Test Item Value Reference Range Interpretation Comments FIBRINOGEN LEVEL (BEAKER) (test 282 mg/dl 225-434 code = 658) Immunoglobulin G (IgG)2020-04-25 06:10:00 Test Item Value Reference Range Interpretation Comments IgG (test code = 2465-3) <883 253-5391 L LATRELL (test code = LATRELL) Agricultural Systems Specialist ID [place] Gutierrez ID - PIAYA L Lab Interpretation (test Abnormal code = 96360-6) [facility] HospitalImmunoglobulin M (IgM)2020-04-25 06:10:00 Test Item Value Reference Range Interpretation Comments IgM (test code = 2464-6) <5 22-293 L LATRELL (test code = LATRELL) Agricultural Systems Specialist ID [place] Gutierrez ID - PIAYA L Lab Interpretation (test Abnormal code = 57393-1) [facility]Immunoglob[facility] A (IgA)2020-04-25 06:10:00 Test Item Value Reference Range Interpretation Comments IgA (test code = 2458-8) <5 63-484 L LATRELL (test code = LATRELL) Agricultural Systems Specialist ID [place] Gutierrez ID - PIAYA L Lab Interpretation (test Abnormal code = 37178-2) [facility] HospitalIMMUNOGLOBULIN A (IGA)2020-04-25 06:10:00 Test Item Value Reference Range Interpretation Comments IMMUNOGLOBULIN A (IGA) (BEAKER) (test < mg/dL 63-484 L code = 639) Agricultural Systems Specialist ELIZABETH Casianotor ID - SERGIO LIMMUNOGLOBULIN G (IGG)2020-04-25 06:10:00 Test Item Value Reference Range Interpretation Comments IMMUNOGLOBULIN G (IGG) (BEAKER) (test < mg/dL 540-1,822 L code = 427) Agricultural Systems Specialist ELIZABETH - SERGIO JOHNSON - SERGIO LIMMUNOGLOBULIN M (IGM)2020-04-25 06:10:00 Test Item Value Reference Range Interpretation Comments IMMUNOGLOBULIN M (IGM) (BEAKER) (test < mg/dL 22-293 L code = 638) Agricultural Systems Specialist ID - SERGIO JOHNSON - SERGIO LLACTIC ACID, [id number] 06:09:00 Test Item Value Reference Range Interpretation Comments LACTATE BLOOD VENOUS (2) (BEAKER) 1.08 mmol/L 0.50-2.20 (test code = 2872) Agricultural Systems Specialist ELIZABETH HILL LSpecimen slightly ictericB-TYPE NATRIURETIC FACTOR (BNP) 2020-04-25 04:54:00 Test Item Value Reference Range Interpretation Comments B-TYPE NATRIURETIC PEPTIDE (BEAKER) 699 pg/mL 0-100 H (test code = 700) Agricultural Systems Specialist ELIZABETH HILL LBASIC METABOLIC [id number] 04:49:00 Test Item Value Reference Range Interpretation [...] 697) EGFR (BEAKER) (test 12 mL/min/1.73 ESTIMA ABDULLAHI GFR IS code = 1092) sq m NOT ACCURATE CREATININE CLEARANCE IN PREDICTING GLOMERULAR FILTRATION RATE . ESTIMATED GFR I S NOT APPLICABLE FOR DIALYSIS PATIEN TS. Agricultural Systems Specialist ID - SERGIO LSpecimen slightly [id number] 04:45:00 Test Item Value Reference Range Interpretation Comments Lipase (test code = 222 U/L 8-78 H 3040-3) LATRELL (test code = LATRELL) Agricultural Systems Specialist ID - SERGIO HOWARDpecimen slightly icteric Lab Interpretation (test Abnormal code = 91710-4) [facility] HospitalMAGNESIUM2020-10-26 04:45:00 Test Item Value Reference Range Interpretation Comments MAGNESIUM (BEAKER) (test code = 2.2 mg/dL 1.6-2.6 627) Agricultural Systems Specialist ID - SERGIO [id number] 04:45:00 Test Item Value Reference Range Interpretation Comments PHOSPHORUS (BEAKER) (test code = 5.4 mg/dL 2.3-4.7 H 604) Agricultural Systems Specialist ID - SERGIO LHEPATIC FUNCTION [id number] 04:45:00 Test Item Value Reference Range Interpretation [...] (test code = 15 U/L 6-55 347) Agricultural Systems Specialist ID - SERGIO HOWARDpecimen slightly [id number] 04:45:00 Test Item Value Reference Range Interpretation Comments LIPASE (BEAKER) (test code = 749) 222 U/L 8-78 H Agricultural Systems Specialist ID - SERGIO HOWARDpecimen slightly ictericPROTHROMBIN TIME/[id number] 04:35:00 Test Item Value Reference Range Interpretation [...] mechanical heart valves.CBC W/PLT COUNT & AUTO [id number] 04:29:00 Test Item Value Reference Range Interpretation [...] 0-1 PERCENT (BEAKER) (test code = 2801) SARS-COV2/RT-PCR [facility]2020-04-25 04:12:00 Test Item Value Reference Range Interpretation Comments SARS-COV2/RT-PCR (test code Negative Not Detected, Negative, = 4640257) See external report for linked test SARS-COV-2 PERFORMING LAB [facility] (test code = 6341292) Negative results do not preclude SARS-CoV-2 infection [...] of the Act.Fact Sheet for Healthcare Pro viders:https://www.[employer].com/Documents/Xpert%20Xpress%20SARS%20CoV-2/Fact%20Sh eets/302-3802%21WLYT-QBW-9%20HEALTHCARE%20PROVIDERS%20FACT%20SHEET.pdfFact Sheet for Healthcare Patients:https://www.[employer]/Documents/Xpert%20Xpress%20SARS%20CoV-2/Fact%20Sheets/302-3801%20SARS-COV -2%20PATIENT%20FACT%20SHEET.pdfPerforming Laboratory:[facility], [place] [address]FIL, ABDOMEN/KUB, 1 VIEW [id number] 01:28:00Referring: Dr. Yary Eastman/ [place] for exam:->abdominal pain [facility] 1955 Sex: MFINAL [...] 04/25/2020 01:28:39 XR abdomen / KUB 1 [id number] 01:28:00Interface, External Ris In - 04/25/2020 1:30 [...] Karissa Romero MDReport Verified Date/Time: 04/25/2020 01:28:39 [facility] RE[facility], [id number] 01:26:00Referring: Dr. Yary Eastman/ Alexandra include bladder as wellReason for exam:->NOHEMI on CKD [facility] : 1955 Sex: MFINAL [...] Karissa Romero MDReport Verified Date/Time: 04/25/2020 01:26:38 [facility]PO[facility] [id number] 00:44:00 Test Item Value Reference Range Interpretation Comments POC-GLUCOSE METER 177 mg/dL 70-110 H : TESTED A T [facility] 6720 ([employer] ([employer])) (test code = [employer] [facility], 1538) 77929: Agricultural Systems Specialist/Techni demetrice ID = [id number] for TAN SOLIMAN POCT-GLUCOSE [id number] 23:52:00 Test Item Value Reference Range Interpretation Comments POC-GLUCOSE METER 99 mg/dL 70-110 : TESTED A T [facility] 6720 ([employer] ([employer])) (test code = [employer] [facility], 1538) 24188: Agricultural Systems Specialist/Techni demetrice ID = [id number] for TAN WILSON PROTEIN, RANDOM [id number] 22:02:00 Test Item Value Reference Range Interpretation Comments PROTEIN, URINE (BEAKER) (test code = < mg/dL 0-14 1569) Agricultural Systems Specialist ID - DBUREA NITROGEN, RANDOM [id number] 22:01:00 Test Item Value Reference Range Interpretation Comments UREA NITROGEN URINE (BEAKER) (test 367 mg/dL code = 538) Reference Range: No NormalsOperator ID - DBCHLORIDE, RANDOM [id number] 22:01:00 Test Item Value Reference Range Interpretation Comments CHLORIDE URINE (BEAKER) (test code = 67 meq/L 682) Reference Range: No NormalsOperator ID - DBCREATININE, RANDOM [id number] 22:01:00 Test Item Value Reference Range Interpretation Comments CREATININE URINE (BEAKER) (test 85.6 mg/dL code = 375) Reference Range: No NormalsOperator ID - DBPOTASSIUM, RANDOM [id number] 22:01:00 Test Item Value Reference Range Interpretation Comments POTASSIUM URINE (BEAKER) (test 21.7 meq/L code = 195) Reference Range: No NormalsOperator ID - DBSODIUM, RANDOM [id number] 22:01:00 Test Item Value Reference Range Interpretation Comments SODIUM URINE (BEAKER) (test code = 53 meq/L 243) Reference Range: No NormalsOperator ID - DBURINALYSIS W/ REFLEX URINE CULTURE 2020-04-24 21:51:00 Test Item Value Reference Range Interpretation [...] /LPF 514) SOURCE(BEAKER) (test code = 2795) Agricultural Systems Specialist ID - [auto]Agricultural Systems Specialist ID - techLACTIC ACID, [id number] 21:32:00 Test Item Value Reference Range Interpretation Comments LACTATE BLOOD VENOUS (2) (BEAKER) 1.05 mmol/L 0.50-2.20 (test code = 2872) Agricultural Systems Specialist ID - DBSpecimen slightly ictericT4, [id number] 20:07:00 Test Item Value Reference Range Interpretation Comments Free T4 (test code = 3024-7) 0.55 ng/dL 0.7-1.48 L LATRELL (test code = LATRELL) Agricultural Systems Specialist ID - DB Lab Interpretation (test Abnormal code = 37430-9) [facility] HospitalT4, [id number] 20:07:00 Test Item Value Reference Range Interpretation Comments FREE T4 (BEAKER) (test code = 655) 0.55 ng/dL 0.70-1.48 L Agricultural Systems Specialist ID - YKLoqiaidmicwhf2455-18-57 20:02:00 Test Item Value Reference Range Interpretation Comments Procalcitonin (test code = 5.20 ng/mL <0.05 H 31405-7) LATRELL (test code = LATRELL) SEPSIS RISK (ng/mL)Low: 0.05-0.50Intermedi ate: 0.51-2.00High: >=2.01 Lab Interpretation (test Abnormal code = 84614-6) [facility] HospitalPROCALCITONIN2020-10-25 20:02:00 Test Item Value Reference Range Interpretation Comments PROCALCITONIN (BEAKER) (test code 5.20 ng/mL <0.05 H = 3036) SEPSIS RISK (ng/mL)Low: 0.05-0.50Intermediate: 0.51-2.00High: >=2.01TROPONIN [id number] 19:34:00 Test Item Value Reference Range Interpretation Comments TROPONIN I (KATELYNN) (test code = 397) < ng/mL 0.00-0.03 [...] failure, acidosis, acute neurological disease, and persistent tachyarrhythmia.Agricultural Systems Specialist ID - DBTSH/FREE T4 IF INDICATED 2020-04-24 19:33:00 Test Item Value Reference Range Interpretation Comments THYROID STIMULATING HORMONE 5.602 uIU/mL 0.350-4.940 H (KATELYNN) (test code = 772) Agricultural Systems Specialist ID - DBRAD, CHEST, 2 [id number] 19:10:00Referring: Dr. Yary Eastman/ [place] for exam:->FATIGUE [facility] : 1955 Sex: MFINAL REPORT RAD, CHEST, 2 VIEWS CLINICAL HISTORY: FATIGUE TECHNIQUE: 2 views of the chest COMPARISON: April 06, 2020 IMPRESSION: Development of interstitial opacities with peripheral Ojsr B lines suggesting mild pulmonary edema but pneumonitis should be excluded clinically. Blunted costophrenic angles may represent trace effusions, pleural thickening or atelectasis. No pneumothorax. No focal lung consolidation. Cardiomediastinal silhouette is stable. Stable osseous structures. Signed: Jed Guadarrama MDReport Verified Date/Time: 04/24/2020 19:10:21 XR chest 2 [id number] 19:10:00Interface, External Ris In - 04/24/2020 7:13 [...] Jed Guadarrama MDReport Verified Date/Time: 04/24/2020 19:10:[address] [facility] NATRIURETIC FACTOR (BNP)2020-04-24 19:09:00 Test Item Value Reference Range Interpretation Comments B-TYPE NATRIURETIC PEPTIDE (BEAKER) 619 pg/mL 0-100 H (test code = 700) Agricultural Systems Specialist ID - DBCOMPREHENSIVE METABOLIC [id number] 18:53:00 Test Item Value Reference Range Interpretation [...] 347) EGFR (BEAKER) (test 12 mL/min/1.73 ESTIMA ABDULLAHI GFR IS code = 1092) sq m NOT ACCURATE CREATININE CLEARANCE IN PREDICTING GLOMERULAR FILTRATION RATE . ESTIMATED GFR I S NOT APPLICABLE FOR DIALYSIS PATIEN TS. Agricultural Systems Specialist ID - DBSpecimen slightly hnfkylwMUZP6044-13-94 18:49:00 Test Item Value Reference Range Interpretation Comments PARTIAL THROMBOPLASTIN TIME 40.9 seconds 22.5-36.0 H (BEAKER) (test code = 760) PROTHROMBIN TIME/[id number] 18:48:00 Test Item Value Reference Range Interpretation [...] for patients wiht mechanical heart valves.LACTIC ACID, [id number] 18:47:00 Test Item Value Reference Range Interpretation Comments LACTATE BLOOD VENOUS (2) (BEAKER) 1.10 mmol/L 0.50-2.20 (test code = 2872) Agricultural Systems Specialist ID - DBSpecimen slightly ictericBLOOD GAS, [id number] 18:42:00 Test Item Value Reference Range Interpretation [...] 1819) 21.0 CBC W/PLT COUNT & AUTO [id number] 18:39:00 Test Item Value Reference Range Interpretation [...] 0-1 PERCENT (BEAKER) (test code = 2801) Treadmill tolerance(Non-Nuclear Treadmill)2020-04-21 15:31:30Interface, External Ris In - 04/21/2020 [...] BP Response To Exercise LASIXlactuloseConfirmed by fellow Anali Kwong ([id number]) on 04/19/2020 1:29:04 PMConfirmed by MD Darin, Bella ([id number]) on 04/21/2020 3:31:05 [facility] CenterMYOCARD IMAGING, MULTI, PHARM, [id number] 15:55:00 Referring: Dr. Yary Eastman/ Josee Reason for Exam - Click Yes and Enter Reason Below->YesUnlisted Reason for Exam->liver transplant evaluationVAN NESS C[facility]ENTERName: JOEL DESOUZA : 1955 Sex: MFINAL REPORT PROCEDURE: Rest/Stress MYOCARDIAL PERFUSION SPECT with regadenoson\\XA9\\ CPT CODE: 64980 INDICATION: Preoperative evaluation for liver transplant PROTOCOL: 10.4 mCi of Tc-99m sestamibi was injected iv at rest, and SPECT (tomographic) images were obtained. Also, 28.8 mCi of Tc-99m sestamibi was injected iv at expected peak pharmac ologic effect, and gated SPECT images were obtained. [...] MDReport Verified Date/Time: 04/19/2020 15:55:39 Reading Location: [address] Reading Room NM myocardial perfusion SPECT, pharm(Lexiscan)2020-04-19 15:55:00Interface, External Ris In - 04/19/2020 3:57 PM CDTFINAL REPORT PROCEDURE: Rest/Stress MYOCARDIAL PERFUSION SPECT with regadenoson\\XA9\\ CPT CODE: 23605 INDICATION: Preoperative evaluation for liver transplant PROTOCOL: [...] MDReport Verified Date/Time: 04/19/2020 15:55:39 Reading Location: [address] Med Reading [facility] CenterAlpha-1 antitrypsin Mutation [id number] 09:00:00 Test Item Value Reference Interpretation Comments Range A1 Antitrypsin SEE BELOW RESULT: NO MU TATION Mut (test code = DETECTED In terpretation: 8471368) DNA testing ind icates that this indiv idual is negative forthe PI*Z and PI*S alleles in the iackc-1-qfsuoeq psin (PI) gene (genotypePI*M/P I*M). This negative r esult does not rule o ut the presence of othermutations within the PI gene or other causes of qkgtc-2-mbsxrtd psindefic iency. Therefor e, these results should be interpreted in the context ofthe individual's cl inical presentation, a nd other laboratory test s such asmeasurement o f serum tvnvk-7-fnqbxyh psin levels. Labora tory testing supervi sed and results monitor ed by Dianna Kendrick, Ph.D.,FACMG, HC LD, CGMBS. Nrtxh-8-cagwleg psin deficiency is a relativelycommo n autosomal reces sive condition. The twomost common deficien cy alleles in xntdfadf-2-tqjq trypsin gene (protease inhibitorlocus, PI) are designated [...] shoul d be noted that seru m bvwcx-9-clzfesa psinlevel s can be induce d by a wide variety ofconditions th at include pregnan cy, infection,numer ous inflammatory co nditions, cancer, andlive r disease. Levels of kblpz-3-emmltzp psinmay be reduced by o ther conditions. Therefore,immun ological and functional determinations ofserum expiv-8-jkrmdzn psin levels may notc orrelate with the indivi dual's PI genotype. The P I*Z, PI*S, and PI*M alleles are detectedby multiplex polymerase marixa n reaction (PCR)amplificat ion of specific region s of the PIgene, followe d by restriction enz yme digestionand ca pillary electrophoresis . This assay doesnot t est for the presence of other mutationswithin the jtnim-5-fsofehx psin gene ornon-genetic c auses of ndugw-7-qgzcvlk psindefic iency. Since ge netic variation and otherfactors ca n affect the accuracy of directmutation testing, these results s hould beinterpreted i n light of clinical and familialdata. T his test was developed a nd its analytical perf ormance characteristics havebeen determined by [facility].It h as not been cleared or approved by FDA. This as say has been validatedp ursuant to the CLIA reg ulations and is used for clinical purposes. Clinical NOT GIVEN Indication (test code = 1305975) Referring NOT GIVEN Physician (test code = 0506255) LATRELL (test code = Performing Lab LATRELL) EZ [facility] [address] [place] [address] Chun Dunne MD, PhD, JEAN [facility] HospitalMISCELLANEOUS LAB [id number] 12:14:00 Test Item Value Reference Range Interpretation Comments SCAN RESULT (test code = 8882956) [id number] 17:08:00 Test Item Value Reference Interpretation Comments Range Zinc (test code = 46 See_Comment L This test was 1687978) developed and i ts analytical performance characteristics have been determined by [employer]. It has not been cleared or appr hamida by theFDA. This assay has been validated pursu ant to the CLIA regulations and is used for clinic al purposes. [Auto mated message] The sy stem which generated this result transmit abdullahi reference range : 60 - 130 mcg/dL. T he reference range was not used to interpret this result as normal/abnormal . LATRELL (test code = Performing Lab LATRELL) *LUZ MARIA Save[facility], [address] [place] [address] Nallely Flores MD Lab Interpretation Abnormal (test code = 16054-8) [facility] HospitalT Spot [id number] 13:21:00 Test Item Value Reference Range Interpretation Comments T-Spot TB (test code = 85414-5) Negative Neg Ctrl Spot Count (test code = 0 92371-0) Panel A Spot (test code = 03532-4) 1 Panel B Spot (test code = 98467-9) [address] (test code = 0 33447-2) Scan Result (test code = 2724217) [facility] HospitalT SPOT [id number] 13:21:00 Test Item Value Reference Range Interpretation Comments T-SPOT TB (BEAKER) (test code = Negative 1683) NEG CONTROL SPOT COUNT (BEAKER) 0 (test code = 1684) PANEL A SPOT (BEAKER) (test code = 1 1685) PANEL B SPOT (BEAKER) (test code = 1 1686) POS CONTROL SPOT CT (BEAKER) (test 0 code = 1687) SCAN RESULT (test code = 5333157) Dicvj-5-[id number] 20:57:00 Test Item Value Reference Range Interpretation Comments Aesgy-2-Ynetxufjmzv 133 mg/dL 83-199 (test code = 4820099) LATRELL (test code = Performing Lab EZ LATRELL) Save[facility] [address] [place] [address] Chun Dunne MD, PhD, JEAN [facility] HospitalAlpha-1-Antitrypsin (AAT) [id number] 20:57:00 Test Item Value Reference Interpretation Comments Range A-1 Antitryp SEE BELOW THIS PATIENT'S Phenotyp (test UEPUH-2-ILCSX RYPSIN code = PHENOTYPE IS PI *MM. 90% of ) normal individu als have the MM phenotyp e, with normal quantita tive AATlevels. Many phenotypic patterns have b een described, incl uding deficiencystate s with F, S, Z, or other alleles. As a general estim ation, compared to Mal fabby of 100% of normal R-1-Ilohrcocajc protein, the S allele producesapproxi mately 60% [...] LATRELL (test code Performing Lab = LATRELL) [employer] [place] [address] [place] [address] Chun Dunne MD, PhD, JEAN [facility] HospitalCarbohydrate antigen 19-9 (CA 19-9)2020-04-09 20:54:00 Test Item Value Reference Range Interpretation Comments CA 19-9 33 U/mL <34 This test was (test code = performed using the 44168-2) Siemens Chemiluminescen t method.Values o btained from different assay methods cannot be used interchangeably .CA19-9 levels, regardl ess of value, should n ot be interpreted as absoluteevidenc e of the presence or abs ence of disease. LATRELL (test Performing Lab code = LATRELL) [employer] [place] [address] [place] [address] Chun Dunne MD, PhD, JEAN [facility] HospitalMumps antibody, [id number] 17:56:00 Test Item Value Reference Interpretation Comments Range Mumps Ab Igg (test <9.00 AU/mL L REFERENCE RANGE: <9.00 code = 5073173) AU/mL Interpretation< 9.00 Negative9 .00-10.99 Equivocal >10.99 Positive A positive result indicates that the patient hasanti body to mumps virus. It does not differentiatebe tween an active or past infection. The clinicaldiagnos is must be interpreted in conjunction wit hclinical signs and sympt oms of the patient. LATRELL (test code = Performing Lab LATRELL) *QDID [employer] [facility], [employer] [address] [place] [address] Luz Kiser MD Lab Interpretation Abnormal (test code = 31769-1) [facility] HospitalTestosterone, free + [id number] 15:21:00 Test Item Value Reference Interpretation Comments Range Testosterone (test 15 ng/dL 250-1100 L Men with clinically code = 8683453) significant hypogonadal symptomsand testosterone va lues repeatedly in t he range of the 20 0-300 ng/dL or less, may benefit from testosterone treatment after adequate risk a nd benefits kimber ordoñez. For additional information, pl ease refer to http://educatio avinash stdiagnostics.c om/fa q/TotalTestoste [facility] (This li nk is being provided for informational/e ducat ional purposes only.) This mindy t was developed and i ts analytical performance characteristics have been determined by [employer]. It has not been cleared or appr hamida by theFDA. This assay has been validated pursu ant to the CLIA regulations and is used for clinic al purposes. Testosterone, Free 1.9 pg/mL 35-155 L This mindy t was (test code = developed and i ts 9345251) analytical performance characteristics have been determined by [employer]. It has not been cleared or appr hamida by theFDA. This assay has been validated pursu ant to the CLIA regulations and is used for clinic al purposes. LATRELL (test code = Performing Lab LATRELL) *LUZ MARIA [facility], [address] [place] [address] Nallely Flores MD Lab Interpretation Abnormal (test code = 91778-9) [facility] HospitalActin (Smooth Muscle) Antibody, [id number] 03:36:00 Test Item Value Reference Range Interpretation Comments Anti-Smooth <20 See Note: U Reference Range :<20 Muscle Ab NEGATIVE> O R = 20 (test code = POSITIVE Antibo dies ) recognizing act in are the main compon [...] (test code Performing Lab = LATRELL) EZ [facility] [address] [place] [address] Chun Dunne MD, PhD, JEAN [facility] HospitalRubeola antibody [id number] 19:59:00 Test Item Value Reference Range Interpretation Comments Rubeola Ab, 43.2 AU/mL REFERENCE RANGE : Igg (test code <13.50 AU/mL = 34297-3) AU/mL Interpretation ==== <13.50 Negative 13.50-16.49 Equivocal >16.49 Positive A posi tive result indicate s that the patient hasantibody to measles virus. It does notdifferentiat e between an acti ve or past infection. The clinical diagno sis must be interpr eted inconjunction w ith clinical signs and symptoms ofthe patient. For additional information, pl ease refer tohttp://educat ion.[facility] stDiagnostics.c om/faq/ URW756(This richelle k is being provided for informational/e ducatio nal purposes on ly.) LATRELL (test code Performing Lab = LATRELL) *QDID [facility], [employer] [address] [place] [address] Luz Kiser MD [facility] HospitalCeruloplasmin2020-10-09 14:49:00 Test Item Value Reference Range Interpretation Comments Ceruloplasmin (test code 14 mg/dL 18-36 L = 8711475) LATRELL (test code = LATRELL) Performing Lab *LUZ MARIA [facility], [address] [place] [address] Nallely Flores MD Lab Interpretation (test Abnormal code = 43279-8) [facility] HospitalCarotid doppler [id number] 07:33:50 Ejection FractionSLEH ECHO HEARTLAB MKCKESSON CPACSRight [...] Study 04/07/2020 MELLY Age 64 Visit Number [id number] Gender Male Accession Number [id number] Date of 1955 Referring Mary Ann Palmer Room Number Physician Computer Compositor Irma Romero T Interpreting Cori Kidd Physician ProcedureType of Study: Cerebral: Carotid, CAROTID DOPPLER, BILATERAL. Indications for Jamison dy:Liver transplant evaluation.Patient Status:Routine.Study Location:Vascular Lab.Technical Quality:Adequate visualization.Risk [...] the left side. - Additional Measurements:ICAPSV/CCAPSV 0.97.ICAEDV/CCAEDV 0.95.[facility] [id number] 12:43:00 Test Item Value Reference Range Interpretation Comments T3, Total (test code = 3053-6) 36 ng/dL 48-159 L Lab Interpretation (test code = Abnormal 94168-2) [facility] HospitalT32020-10-08 12:43:00 Test Item Value Reference Range Interpretation Comments T3 TOTAL (BEAKER) (test code = 656) 36 ng/dL 48-159 L Varicella zoster antibody, [id number] 09:11:00 Test Item Value Reference Range Interpretation Comments Varicella IgG (test 0.9 code = 53349-7) LATRELL (test code = LATRELL) VARICELLA ZOSTER RESULT INTERPRETATIONS: <=0.8 Al Nonreactive: Presumed non-immune to VZV 0.9-1.0 Al Equivocal >=1.1 Al Reactive: Presumed immune to VZV [facility] HospitalVARICELLA ZOSTER ANTIBODY, [id number] 09:11:00 Test Item Value Reference Range Interpretation Comments VARICELLA ZOSTER IGG (AL) (BEAKER) 0.9 (test code = 3197) VARICELLA ZOSTER RESULT INTERPRETATIONS: <=0.8 Al Nonreactive: Presumed non-immune to VZV 0.9-1.0 Al Equivocal >=1.1 Al Reactive: Presumed immune to VZVRubella antibody, [id number] 08:17:00 Test Item Value Reference Range Interpretation Comments Rubella IgG Quant 9.0 See_Comment [Automate d (test code = 8014-3) message ] The system which generated this result transmitted reference range : <8.0 IU/mL. The reference range was not used to interpret this result as normal/abnormal . LATRELL (test code = LATRELL) Rubella IgG Result Interpretation: </= 7.0 IU/mL Negative - Presumed non-immune 8.0 - 9.9 IU/mL Equivocal >= 10.0 IU/mL Positive - Presumed immune Lab Interpretation Abnormal (test code = 66029-6) [facility] HospitalEBV-VCA antibody, [id number] 08:17:00 Test Item Value Reference Range Interpretation Comments ELINA JOYNER VIRAL Negative Negative, CAPSID ANTIGEN IGM (test Equivocal code = 3418) LATRELL (test code = LATRELL) Elina Joyner Viral Capsid Antigen IgM Result Interpretation: </= 0.8 Al Negative 0.9-1.0 Al Equivocal >/= 1.1 Al Positive Lab Interpretation (test Normal code = 58922-0) [facility] HospitalCytomegalovirus antibody, [id number] 08:17:00 Test Item Value Reference Range Interpretation Comments CMV IGM (test code = Negative Negative, 3437) Equivocal LATRELL (test code = LATRELL) CMV IgM Result Interpretation: </= 0.8 Al Negative 0.9-1.0 Al Equivocal >/= 1.1 Al Positive Lab Interpretation (test Normal code = 30472-2) [facility] HospitalCYTOMEGALOVIRUS ANTIBODY, [id number] 08:17:00 Test Item Value Reference Range Interpretation Comments CYTOMEGALOVIRUS IGM ANTIBODY Negative Negative, Equivocal (BEAKER) (test code = 3437) CMV IgM Result Interpretation: </= 0.8 Al Negative 0.9-1.0 Al Equivocal >/= 1.1 Al PositiveEBV ANTIBODY, [id number] 08:17:00 Test Item Value Reference Range Interpretation [...] - Presumed immune RAD, MANDIBLE, MIN 4 [id number] 13:44:00Referring: Dr. Yary Eastman/ River for Exam:->liver [...] Date/Time: 04/06/2020 13:44:20 XR mandible 4 views [id number] 13:44:00Interface, External Ris In - 04/06/2020 1:46 [...] Signed: Javed Paez MDReport Verified Date/Time:04/06/2020 13:44:20 [facility] CenterRAD, CHEST, 2 [id number] 13:27:00Referring: Dr. Yary Eastman/ River for Exam:->liver transplant evaluationFINAL REPORT CHEST PA AND LATERAL COMPARISON STUDY: 02/23/2020 History provided : Liver transplantation evaluation Heart size normal. Prior sternotomy. Chronic blunting of the right costophrenic angle probably due to pleural thickening. Lungs clear and vascularity normal. Signed: Moreno Wilkes MDReport Verified Date/Time: 04/06/2020 13:27:52 Reading Location: [facility] Radiology Reading Room RAD, BONE DENSITY [id number] 12:40:00Referring: Dr. Yary Eastman/ River for Exam:->liver [...] high risk of fracture. Signed: Javed Paez MDReport Verified Date/Time: 04/06/2020 12:40:47 XR dxa bone density [id number] 12:40:00Interface, External Ris In - 04/06/2020 12:42 [...] high risk of fracture. Signed: Javed Paez MDReport Verified Date/Time: 04/06/2020 12:40:47 [facility] CenterCryptococcal antigen 2020-04-06 11:19:00 Test Item Value Reference Range Interpretation Comments Cryptococcal Antigen, Serum Negative Negative, Interference (test code = 87302-9) Lab Interpretation (test code Normal = 57984-7) [facility] HospitalCRYPTOCOCCAL [id number] 11:19:00 Test Item Value Reference Range Interpretation Comments CRYPTOCOCCAL ANTIGEN, SERUM Negative Negative, Interference (BEAKER) (test code = 1828) [id number] 11:16:00 Test Item Value Reference Range Interpretation Comments RPR (test code = 00554-9) Nonreactive Nonreactive Lab Interpretation (test code = Normal 26473-5) [facility] HospitalRPR2020-10-07 11:16:00 Test Item Value Reference Range Interpretation Comments RPR SCREEN (BEAKER) (test code = Nonreactive Nonreactive 420) [id number] 10:35:00 Test Item Value Reference Range Interpretation Comments T4, Total (test code = 3.8 ug/dL 4.9-11.7 L 3026-2) LATRELL (test code = LATRELL) Agricultural Systems Specialist ID - GENARO C Lab Interpretation (test Abnormal code = 71028-1) [facility] HospitalT42020-10-07 10:35:00 Test Item Value Reference Range Interpretation Comments T4 TOTAL (BEAKER) (test code = 895) 3.8 ug/dL 4.9-11.7 L Agricultural Systems Specialist ID - GENARO [id number] 09:39:00 Test Item Value Reference Range Interpretation Comments PSA (test code = 2857-1) 0.0 ng/mL 0-4 LATRELL (test code = LATRELL) Agricultural Systems Specialist ID - GENARO C Lab Interpretation (test Normal code = 53269-3) [facility] HospitalTSH2020-10-07 09:39:00 Test Item Value Reference Range Interpretation Comments TSH (test code = 4.994 See_Comment H [Automated 40009-5) message] The system which generated this result transmit abdullahi reference range : 0.350 - 4.940 uIU/mL. The reference range was not used to interpret this result as normal/abnormal . LATRELL (test code = LATRELL) Agricultural Systems Specialist ID - GENARO C Lab Interpretation Abnormal (test code = 62796-2) [facility] A antibody, IgG ([facility] Lab ONLY)2020-04-06 09:39:00 Test Item Value Reference Range Interpretation Comments Hep A IgG (test code = Reactive Nonreactive A 64073-6) LATRELL (test code = LATRELL) Agricultural Systems Specialist ID - GENARO C Lab Interpretation (test Abnormal code = 16470-1) [facility]TIBODY, [id number] 09:39:00 Test Item Value Reference Range Interpretation Comments HEPATITIS A IGG ANTIBODY (BEAKER) Reactive Nonreactive A (test code = 2797) Agricultural Systems Specialist ID - [facility] [id number] 09:39:00 Test Item Value Reference Range Interpretation Comments PROSTATE SPECIFIC ANTIGEN (BEAKER) 0.0 ng/mL 0.0-4.0 (test code = 844) Agricultural Systems Specialist ID - [facility] [id number] 09:39:00 Test Item Value Reference Range Interpretation Comments THYROID STIMULATING HORMONE 4.994 uIU/mL 0.350-4.940 H (BEAKER) (test code = 772) Agricultural Systems Specialist ID - GENARO CCarcinoembryonic Antigen (CEA)2020-04-06 09:26:00 Test Item Value Reference Range Interpretation Comments CEA, SERUM (test code = 3.6 ng/mL 0-5 2038-6) LATRELL (test code = LATRELL) Agricultural Systems Specialist ID - GENARO C Lab Interpretation (test Normal code = 34987-1) [facility] B core antibody, [id number] 09:26:00 Test Item Value Reference Range Interpretation Comments Hep B Core Total Ab (test Nonreactive Nonreactive code = 35706-7) LATRELL (test code = LATRELL) Agricultural Systems Specialist ID - GENARO C Lab Interpretation (test Normal code = 20845-7) [facility] antibody, [id number] 09:26:00 Test Item Value Reference Range Interpretation Comments Hep B C IgM (test code = Nonreactive Nonreactive 95533-9) LATRELL (test code = LATRELL) Agricultural Systems Specialist ID - GENARO C Lab Interpretation (test Normal code = 45882-3) [facility] HospitalHepatitis A antibody, [id number] 09:26:00 Test Item Value Reference Range Interpretation Comments Hep A IgM (test code = Nonreactive Nonreactive 68334-6) LATRELL (test code = LATRELL) Agricultural Systems Specialist ID - GENARO C Lab Interpretation (test Normal code = 20566-4) [facility] HospitalCARCINOEMBRYONIC ANTIGEN (CEA)2020-04-06 09:26:00 Test Item Value Reference Range Interpretation Comments CARCINOEMBRYONIC ANTIGEN (BEAKER) 3.6 ng/mL 0.0-5.0 (test code = 685) Agricultural Systems Specialist ID - GENARO CHEPATITIS B CORE ANTIBODY, [id number] 09:26:00 Test Item Value Reference Range Interpretation Comments HEPATITIS B CORE IGM ANTIBODY Nonreactive Nonreactive (BEAKER) (test code = 645) Agricultural Systems Specialist [facility] - [facility] A ANTIBODY, [id number] 09:26:00 Test Item Value Reference Range Interpretation Comments HEPATITIS A IGM ANTIBODY (BEAKER) Nonreactive Nonreactive (test code = 498) Agricultural Systems Specialist ID - [facility]ENTERPATITIS B CORE ANTIBODY, [id number] 09:26:00 Test Item Value Reference Range Interpretation Comments HEPATITIS B CORE TOTAL ANTIBODY Nonreactive Nonreactive (BEAKER) (test code = 497) Agricultural Systems Specialist [facility] - [facility] surface [id number] 09:23:00 Test Item Value Reference Range Interpretation Comments HBsAg Screen (test code Nonreactive Nonreactive = 5195-3) LATRELL (test code = LATRELL) Specimen is considered negative for HBsAg. Lab Interpretation (test Normal code = 24837-1) [facility] HospitalHepatitis B surface [id number] 09:23:00 Test Item Value Reference Range Interpretation Comments Hep B S Ab (test code 60.7 See_Comment H [Auto mated = 13395-9) message] The system which generated this result transmit abdullahi reference range : <8.0 mIU/mL. Th e reference range was not used to interpret this result as normal/abnormal . LATRELL (test code = LATRELL) Agricultural Systems Specialist ID - GENARO C Lab Interpretation Abnormal (test code = 48093-4) [facility] HospitalHepatitis C [id number] 09:23:00 Test Item Value Reference Range Interpretation Comments Hepatitis C Ab (test code Nonreactive Nonreactive = 37498-4) LATRELL (test code = LATRELL) Agricultural Systems Specialist ID - GENARO C Lab Interpretation (test Normal code = 94579-8) [facility] HospitalHIV-1 Antigen with HIV-1/2 [id number] 09:23:00 Test Item Value Reference Range Interpretation Comments HIV-1 Antigen with HIV Nonreactive Nonreactive 1&2 Antibody (test code = 04923-3) LATRELL (test code = LATRELL) Agricultural Systems Specialist ID - GENARO C Lab Interpretation (test Normal code = 49930-9) [facility] HospitalHEPATITIS B SURFACE [id number] 09:23:00 Test Item Value Reference Range Interpretation Comments HEPATITIS B SURFACE ANTIGEN (2) Nonreactive Nonreactive (BEAKER) (test code = 2585) Specimen is considered negative for HBsAg.HEPATITIS B SURFACE [id number] 09:23:00 Test Item Value Reference Range Interpretation Comments HEPATITIS B SURFACE ANTIBODY 60.7 mIU/mL <8.0 H (BEAKER) (test code = 647) Agricultural Systems Specialist [facility] [id number] 09:23:00 Test Item Value Reference Range Interpretation Comments HEPATITIS C ANTIBODY (BEAKER) Nonreactive Nonreactive (test code = 367) Agricultural Systems Specialist ID - [facility] CHIV-1 ANTIGEN WITH HIV-1/2 [id number] 09:23:00 Test Item Value Reference Range Interpretation Comments HIV-1 ANTIGEN WITH HIV 1\\T\\2 Nonreactive Nonreactive ANTIBODY (2) (BEAKER) (test code = 2586) Agricultural Systems Specialist ID - GENARO CVITAMIN D, [id number] 09:20:00 Test Item Value Reference Range Interpretation Comments VITAMIN D 25-OH (BEAKER) (test 12.7 ng/mL 6.6-49.9 code = 2764) Effective 04/10/2017: Reference Range ChangeNew: 6.6-49.9 ng/mL Previous: 13.0-47.8 ng/mLRecommended Vitamin D Target Range: 30.0-40.0 ng/mLOperator ID - GENARO CCOMPREHENSIVE METABOLIC [id number] 09:05:00 Test Item Value Reference Range Interpretation [...] 347) EGFR (BEAKER) (test 13 mL/min/1.73 ESTIMA ABDULLAHI GFR IS code = 1092) sq m NOT ACCURATE CREATININE CLEARANCE IN PREDICTING GLOMERULAR FILTRATION RATE . ESTIMATED GFR I S NOT APPLICABLE FOR DIALYSIS PATIEN TS. Agricultural Systems Specialist ID - GENARO [id number] 09:01:00 Test Item Value Reference Range Interpretation Comments Transferrin (test code = 134 mg/dL 174-382 L 3034-6) LATRELL (test code = LATRELL) Agricultural Systems Specialist ID - GENARO C Lab Interpretation (test Abnormal code = 71020-5) [facility] 09:01:00 Test Item Value Reference Range Interpretation Comments TRANSFERRIN (BEAKER) (test code = 134 mg/dL 174-382 L 541) Agricultural Systems Specialist ID - GENARO CLipid [id number] 08:57:00 Test Item Value Reference Range Interpretation Comments Triglycerides (test 56 mg/dL code = 2571-8) Cholesterol (test code 100 mg/dL = 2093-3) HDL (test code = 34 mg/dL 5-9) LDL Calculated (test 55 mg/dL code = 04168-0) LATRELL (test code = LATRELL) Triglyceride Reference Range: Low Risk <150 Borderline 150-199 High Risk 200-499 Very High Risk >=500 Cholesterol Reference Range: Low Risk <200 Borderline 200-239 High Risk >240 HDL Cholesterol Reference Range: Low Risk >=60 High Risk <40 LDL Cholesterol Reference Range: Optimal <100 Near Optimal 100-129 Borderline 130-159 High 160-189 Very High >=190 Agricultural Systems Specialist ID - GENARO Ez [facility] HospitalEthanol2020-10-[facility] 08:57:00 Test Item Value Reference Range Interpretation Comments Ethanol Lvl (test <10 See_Comment [Automate d code = 5643-2) message] The system which generated this result transmit abdullahi reference range : <=10 mg/dL. The reference range was not used to interpret this result as normal/abnormal . LATRELL (test code = LATRELL) Agricultural Systems Specialist ID - GENARO C Lab Interpretation Normal (test code = 88666-6) [facility] HospitalBilirubin, [id number] 08:57:00 Test Item Value Reference Range Interpretation Comments Bilirubin, Direct (test 0.9 mg/dL 0.1-0.5 H code = 1968-7) LATRELL (test code = LATRELL) Agricultural Systems Specialist ID - GENARO C Lab Interpretation (test Abnormal code = 66115-4) [facility] HospitalGamma Glutamyl Transferase (GGT)2020-04-06 08:57:00 Test Item Value Reference Range Interpretation Comments GGT (test code = 2324-2) 46 U/L 9-64 LATRELL (test code = LATRELL) Agricultural Systems Specialist ID - GENARO C Lab Interpretation (test Normal code = 40017-2) [facility] HospitalUric [id number] 08:57:00 Test Item Value Reference Range Interpretation Comments Uric Acid (test code = 15.2 mg/dL 2.6-7.2 H 3084-1) LATRELL (test code = LATRELL) Agricultural Systems Specialist ID - GENARO C Lab Interpretation (test Abnormal code = 36959-7) [facility] HospitalURIC [id number] 08:57:00 Test Item Value Reference Range Interpretation Comments URIC ACID (BEAKER) (test code = 15.2 mg/dL 2.6-7.2 H 773) Agricultural Systems Specialist ID - GENARO [id number] 08:57:00 Test Item Value Reference Range Interpretation Comments MAGNESIUM (BEAKER) (test code = 2.4 mg/dL 1.6-2.6 627) Agricultural Systems Specialist ID - GENARO [id number] 08:57:00 Test Item Value Reference Range Interpretation Comments PHOSPHORUS (BEAKER) (test code = 3.0 mg/dL 2.3-4.7 604) Agricultural Systems Specialist ID - GENARO CLIPID [id number] 08:57:00 Test Item Value Reference Range Interpretation [...] Borderline 130-159 High 160-189 Very High >=190 Agricultural Systems Specialist ID - GENARO CBILIRUBIN, [id number] 08:57:00 Test Item Value Reference Range Interpretation Comments BILIRUBIN DIRECT (BEAKER) (test 0.9 mg/dL 0.1-0.5 H code = 706) Agricultural Systems Specialist ID - GENARO CGAMMA GLUTAMYL TRANSFERASE (GGT)2020-04-06 08:57:00 Test Item Value Reference Range Interpretation Comments GAMMA GLUTAMYL TRANSFERASE (BEAKER) 46 U/L 9-64 (test code = 364) Agricultural Systems Specialist ID - GENARO [id number] 08:57:00 Test Item Value Reference Range Interpretation Comments ETHANOL (BEAKER) (test code = 400) < mg/dL <=10 Agricultural Systems Specialist ID - GENARO CCBC W/PLT COUNT & AUTO [id number] 08:56:00 Test Item Value Reference Range Interpretation [...] 0-1 PERCENT (BEAKER) (test code = 2801) URINALYSIS W/ [id number] 08:49:00 Test Item Value Reference Range Interpretation [...] /LPF 514) SOURCE(BEAKER) (test code = 2795) Agricultural Systems Specialist ID - [auto]Agricultural Systems Specialist ID - [id number] 08:48:00 Test Item Value Reference Range Interpretation Comments PARTIAL THROMBOPLASTIN TIME 33.4 seconds 22.5-36.0 (BEAKER) (test code = 760) [id number] 08:48:00 Test Item Value Reference Range Interpretation Comments FIBRINOGEN LEVEL (BEAKER) (test 163 mg/dl 225-434 L code = 658) PROTHROMBIN TIME/[id number] 08:47:00 Test Item Value Reference Range Interpretation [...] is2.5-3.5 for patients wiht mechanical heart valves.Calcium, [id number] 08:32:00 Test Item Value Reference Range Interpretation Comments Calcium, Ion (test code = 1994-3) 1.15 mmol/L 1.12-1.27 pH, Blood (test code = 30832-8) 7.33 [facility], [id number] 08:32:00 Test Item Value Reference Range Interpretation Comments CALCIUM IONIZED (BEAKER) (test 1.15 mmol/L 1.12-1.27 code = 698) PH, BLOOD (BEAKER) (test code = 7.33 1810) TACROLIMUS [id number] 08:39:00 Test Item Value Reference Range Interpretation Comments TACROLIMUS BLOOD (BEAKER) (test 8.3 ng/mL 10.0-20.0 L code = 657) Agricultural Systems Specialist ID - RMALPHA FETOPROTEIN (AFP), TUMOR [id number] 19:02:00 Test Item Value Reference Range Interpretation Comments ALPHA-FETOPROTEIN (BEAKER) (test 3.0 ng/mL <10.0 code = 1094) Agricultural Systems Specialist ID - BSBASIC METABOLIC [id number] 17:37:00 Test Item Value Reference Range Interpretation [...] 697) EGFR (BEAKER) (test 18 mL/min/1.73 ESTIMA ABDULLAHI GFR IS code = 1092) sq m NOT ACCURATE CREATININE CLEARANCE IN PREDICTING GLOMERULAR FILTRATION RATE . ESTIMATED GFR I S NOT APPLICABLE FOR DIALYSIS PATIEN TS. Agricultural Systems Specialist ID - BSSpecimen slightly ictericHEPATIC FUNCTION [id number] 17:32:00 Test Item Value Reference Range Interpretation [...] (test code = 25 U/L 6-55 347) Agricultural Systems Specialist ID - BSSpecimen slightly ictericCBC W/PLT COUNT [...] PERCENT (BEAKER) (test code = 2801) PROTHROMBIN [id number] 15:49:00 Test Item Value Reference Range Interpretation [...] for patients wiht mechanical heart valves.CMV PCR, [id number] 19:30:00 Test Item Value Reference Range Interpretation Comments CMV VIRAL LOAD - POSITIVE Se e Scanned Report. (BEAKER) (test code = 1557) CMV VIRAL LOAD - NEGATIVE Se e Scanned Report. (BEAKER) (test code = 2558) BASIC METABOLIC [id number] 14:13:00 Test Item Value Reference Range Interpretation [...] 697) EGFR (BEAKER) (test 10 mL/min/1.73 ESTIMA ABDULLAHI GFR IS code = 1092) sq m NOT ACCURATE CREATININE CLEARANCE IN PREDICTING GLOMERULAR FILTRATION RATE . ESTIMATED GFR I S NOT APPLICABLE FOR DIALYSIS PATIEN TS. Agricultural Systems Specialist ID - GENARO CTACROLIMUS [id number] 10:37:00 Test Item Value Reference Range Interpretation Comments TACROLIMUS BLOOD (BEAKER) (test 8.3 ng/mL 10.0-20.0 L code = 657) Agricultural Systems Specialist ID - AAHAMIDBASIC METABOLIC [id number] 07:48:00 Test Item Value Reference Range Interpretation [...] 697) EGFR (BEAKER) (test 10 mL/min/1.73 ESTIMA ABDULLAHI GFR IS code = 1092) sq m NOT ACCURATE CREATININE CLEARANCE IN PREDICTING GLOMERULAR FILTRATION RATE . ESTIMATED GFR I S NOT APPLICABLE FOR DIALYSIS PATIEN TS. Agricultural Systems Specialist ID - GENARO [id number] 07:35:00 Test Item Value Reference Range Interpretation Comments MAGNESIUM (BEAKER) (test code = 1.9 mg/dL 1.6-2.6 627) Agricultural Systems Specialist ID - GENARO CBASIC METABOLIC [id number] 14:54:00 Test Item Value Reference Range Interpretation [...] S NOT APPLICABLE FOR DIALYSIS PATIEN TS. Agricultural Systems Specialist ID - RENETTAACROLIMUS [id number] 09:59:00 Test Item Value Reference Range Interpretation Comments TACROLIMUS BLOOD (BEAKER) (test 11.6 ng/mL 10.0-20.0 code = 657) Agricultural Systems Specialist ID - SAMY ZEEITAMIN D, [id number] 08:26:00 Test Item Value Reference Range Interpretation Comments VITAMIN D 25-OH (BEAKER) (test code 8.5 ng/mL 6.6-49.9 = 2764) Effective 04/10/2017: Reference Range ChangeNew: 6.6-49.9 ng/mL Previous: 13.0-47.8 ng/mLRecommended Vitamin D Target Range: 30.0-40.0 ng/mLOperator ID - NTPHEPATIC FUNCTION [id number] 08:00:00 Test Item Value Reference Range Interpretation [...] (test code = 40 U/L 6-55 347) Agricultural Systems Specialist ID - NTPCBC (HEMOGRAM ONLY)2020-02-25 07:01:00 Test Item Value Reference [...] 0-0 (test code = 413) BASIC METABOLIC [id number] 07:01:00 Test Item Value Reference Range Interpretation [...] S NOT APPLICABLE FOR DIALYSIS PATIEN TS. Agricultural Systems Specialist ID - [id number] 06:49:00 Test Item Value Reference Range Interpretation Comments MAGNESIUM (BEAKER) (test code = 2.0 mg/dL 1.6-2.6 627) Agricultural Systems Specialist ID - NTPPT, [id number] 06:44:00 Test Item Value Reference Range Interpretation Comments PTH (test code = 2731-8) 425.2 pg/mL 8.5-72.5 H LATRELL (test code = LATRELL) Agricultural Systems Specialist ID - NTP Lab Interpretation (test Abnormal code = 99568-7) [facility] HospitalPTH, [id number] 06:44:00 Test Item Value Reference Range Interpretation Comments PARATHYROID HORMONE INTACT 425.2 pg/mL 8.5-72.5 H (BEAKER) (test code = 577) Agricultural Systems Specialist ID - NTPU/S, ABDOMINAL, WITH [id number] 23:24:00Referring: Dr. Yary Eastman/ [place] for exam:->HCC [...] Verified Date/Time: 02/24/2020 23:24:17 US abdominal with [id number] 23:24:00Interface, External Ris In - 02/24/2020 11:26 [...] David Yee MDReport Verified Date/Time: 02/24/2020 23:24:[address] Echo W/Doppler(CW/PW/Color) 2020-02-24 20:08:32Ejection FractionSLEH ECHO HEARTLAB MKCKESSON CPACSInterface, External Ris In - 02/24/2020 8:08 PM CDTTransthoracic Echocardiography Report (TTE) Demographics Patient Name JOEL DESOUZA Date of Study 02/24/2020 MELLY Gender Male Visit Number [id number] Race Unknown Room Number 1230 Number Date of 1955 Referring Maine Hernandez Physician Age 64 year(s) Computer Compositor Nallely Jason CS Security Services Manager Concepcion Lion CS Interpreting Elaina López Physician Procedure Type of Study TTE procedure:2DECHO [...] Velocity: 2.05 m/s TR Gradient: 16.76 mmHgCHI Bellwood General HospitalCHLORIDE, RANDOM [id number] 18:44:00 Test Item Value Reference Range Interpretation Comments CHLORIDE URINE (BEAKER) (test code 130 meq/L = 682) Reference Range: No NormalsOperator ID - BSCREATININE, RANDOM [id number] 18:44:00 Test Item Value Reference Range Interpretation Comments CREATININE URINE (BEAKER) (test 27.5 mg/dL code = 375) Reference Range: No NormalsOperator ID - BSPOTASSIUM, RANDOM [id number] 18:44:00 Test Item Value Reference Range Interpretation Comments POTASSIUM URINE (BEAKER) (test 26.2 meq/L code = 195) Reference Range: No NormalsOperator ID - BSSODIUM, RANDOM [id number] 18:44:00 Test Item Value Reference Range Interpretation Comments SODIUM URINE (BEAKER) (test code = 102 meq/L 243) Reference Range: No NormalsOperator ID - BSUREA NITROGEN, RANDOM [id number] 18:44:00 Test Item Value Reference Range Interpretation Comments UREA NITROGEN URINE (BEAKER) (test 122 mg/dL code = 538) Reference Range: No NormalsOperator ID - BSBLOOD GAS, [id number] 18:33:00 Test Item Value Reference Range Interpretation [...] code = 1819) 21.0 % AB Specifities [id number] 14:52:00 Test Item Value Reference Range Interpretation [...] code = 3287) DSA DPB AG1 (test 01:01 code = 3281) DSA DPB AG2 (test [...] and its performance characteristics determined by the [facility]. It has not been cleared [...] to perform high complexity clinical laboratory testing. [facility] HospitalAB SPECIFICITY CLASS [id number] 14:47:00 Test Item Value Reference Range Interpretation Comments AB Specificity Class NO CLASS II ANTIBODY II (test code = 3458) DETECTED WITH MFIs > 1000 LATRELL (test code = LATRELL) Disclaimer: This test was developed and its performance characteristics determined by the [facility]. It has not been cleared [...] to perform high complexity clinical laboratory testing. [facility] HospitalAB SPECIFICITY CLASS [id number] 14:46:00 Test Item Value Reference Range Interpretation Comments AB Specificity Class NO CLASS I ANTIBODY I (test code = 3457) DETECTED WITH MFIs > 1000 LATRELL (test code = LATRELL) Disclaimer: This test was developed and its performance characteristics determined by the [facility]. It has not been cleared [...] to perform high complexity clinical laboratory testing. [facility] HospitalBASI METABOLIC [id number] 13:33:00 Test Item Value Reference Range Interpretation [...] 697) EGFR (BEAKER) (test 10 mL/min/1.73 ESTIMA ABDULLAHI GFR IS code = 1092) sq m NOT ACCURATE CREATININE CLEARANCE IN PREDICTING GLOMERULAR FILTRATION RATE . ESTIMATED GFR I S NOT APPLICABLE FOR DIALYSIS PATIEN TS. Agricultural Systems Specialist ID - GENARO CTACROLIMUS [id number] 11:30:00 Test Item Value Reference Range Interpretation Comments TACROLIMUS BLOOD (BEAKER) (test 13.2 ng/mL 10.0-20.0 code = 657) Agricultural Systems Specialist ID - SAMY [facility] METABOLIC [id number] 07:00:00 Test Item Value Reference Range Interpretation [...] 697) EGFR (BEAKER) (test 10 mL/min/1.73 ESTIMA ABDULLAHI GFR IS code = 1092) sq m NOT ACCURATE CREATININE CLEARANCE IN PREDICTING GLOMERULAR FILTRATION RATE . ESTIMATED GFR I S NOT APPLICABLE FOR DIALYSIS PATIEN TS. Agricultural Systems Specialist ID - EDASIPROTHROMBIN TIME/[id number] 06:41:00 Test Item Value Reference Range Interpretation Comments PROTIME (BENOLVIA) (test code = 19.0 seconds 11.9-14.2 H 759) INR (BEAKER) (test code = 370) 1.64 <=5.90 Effective 11/26/2018: PT Reference Range ChangeNew: 11.9-14.2 Previous: 11.7- 14.7RECOMMENDED COUMADIN/WARFARIN INR THERAPY RANGESSTANDARD DOSE: 2.0-3.0 Includes: PROPHYLAXIS for venous thrombosis, systemic embolization; TREATMENT for venous thrombosis and/or pulmonary embolus.HIGH RISK: Target INR is2.5-3.5 for patients wiht mechanical heart valves.U/S, RENAL, [id number] 01:22:00Referring: Dr. Yary Eastman/ [place] for exam:->NOHEMI on [id number] REPORT TECHNIQUE: Grayscale ultrasound of the kidneys [...] kidney unchanged compared to prior Signed: Ken Huerta MDReport Verified Date/Time: 02/24/2020 01:22:47 CREATININE, RANDOM [id number] 21:28:00 Test Item Value Reference Range Interpretation Comments CREATININE URINE (BEAKER) (test 82.9 mg/dL code = 375) Reference Range: No NormalsOperator ID - BSPROTEIN, RANDOM [id number] 21:28:00 Test Item Value Reference Range Interpretation Comments PROTEIN, URINE (BEAKER) (test code = 7 mg/dL 0-14 1569) Agricultural Systems Specialist ID - BSSODIUM, RANDOM [id number] 21:28:00 Test Item Value Reference Range Interpretation Comments SODIUM URINE (BEAKER) (test code = 67 meq/L 243) Reference Range: No NormalsOperator ID - BSURINALYSIS W/ [id number] 21:12:00 Test Item Value Reference Range Interpretation [...] = 1521) SOURCE(BEAKER) (test code = 2795) Agricultural Systems Specialist ID - [auto]Agricultural Systems Specialist ID - [id number] 19:00:00 Test Item Value Reference Range Interpretation Comments FERRITIN (BEAKER) (test code = 71.41 ng/mL 5.00-275.00 361) Agricultural Systems Specialist ID - BSVITAMIN B12 AND [id number] 19:00:00 Test Item Value Reference Range Interpretation Comments VITAMIN B12 (BEAKER) (test code = 633 pg/mL 213-816 774) FOLATE (BEAKER) (test code = 362) 16.00 ng/mL >=7.00 Agricultural Systems Specialist ID - BSB-TYPE NATRIURETIC FACTOR (BNP)2020-02-23 18:31:00 Test Item Value Reference Range Interpretation Comments B-TYPE NATRIURETIC PEPTIDE 1388 pg/mL 0-100 H (BEAKER) (test code = 700) Agricultural Systems Specialist ID - BSIRON, TIBC, % SAT. (WITHOUT FERRITIN)2020-02-23 18:24:00 Test Item Value Reference Range Interpretation Comments IRON (BEAKER) (test code = 547) 111.0 ug/dL 40.0-160.0 TOTAL IRON BINDING CAPACITY 214 ug/dL 250-450 L (BEAKER) (test code = 769) IRON % SATURATION (2) (BEAKER) 52 % 20-55 (test code = 2590) Agricultural Systems Specialist ID - BSBASIC METABOLIC [id number] 18:24:00 Test Item Value Reference Range Interpretation [...] 697) EGFR (BEAKER) (test 10 mL/min/1.73 ESTIMA ABDULLAHI GFR IS code = 1092) sq m NOT ACCURATE CREATININE CLEARANCE IN PREDICTING GLOMERULAR FILTRATION RATE . ESTIMATED GFR I S NOT APPLICABLE FOR DIALYSIS PATIEN TS. Agricultural Systems Specialist ID - BSSARS-COV2/RT-PCR ([facility])2020-02-23 15:02:00 Test Item Value Reference Range Interpretation Comments SARS-COV2/RT-PCR (test code Negative Not Detected, Negative, = 8970145) See external report for linked test SARS-COV-2 PERFORMING LAB [facility] (test code = 8785516) Negative results do not preclude SARS-CoV-2 infection [...] of the Act.Fact Sheet for Healthcare Pro viders:https://www.[employer]/Documents/Xpert%20Xpress%20SARS%20CoV-2/Fact%20Sh eets/3023802%28JKAO-XZE-5%20HEALTHCARE%20PROVIDERS%20FACT%20SHEET.pdfFact Sheet for Healthcare Patients:https://www.[employer]/Documents/Xpert%20Xpress%20SARS%20CoV-2/Fact%20Sheets/3023801%20SARS-COV -2%20PATIENT%20FACT%20SHEET.pdfPerforming Laboratory:[facility], [place] [address]UNMGSYWYPG [id number] 12:46:00 Test Item Value Reference Range Interpretation Comments TACROLIMUS BLOOD (BEAKER) (test 18.3 ng/mL 10.0-20.0 code = 657) Agricultural Systems Specialist ID - RMRAD, CHEST, 2 [id number] 11:47:00Referring: Dr. Yary Eastman/ [place] for Exam:->s/p lung transplantFINAL REPORT INDICATION: s/p lung transplant COMPARISON: December 10, 2019 TECHNIQUE: Frontal and lateral views of the chest. FINDINGS: Lungs and pleura: Clear lungs. Small bilateraleffusions.Heart and mediastinum: Normal heart size. Unremarkable mediastinal contours.Osseous structures: No acute abnormality.Additional findings: Status post lung transplant. IMPRESSION: No acute intrathoracic abnormality. Signed: Fitz Fernandez MDReport Verified Date/Time: 02/23/2020 11:47:27 Reading Location: [facility] Radiology Reading Room Hemoglobin A1c 2020-02-23 11:44:00 Test Item Value Reference Range Interpretation Comments Hemoglobin A1C (test code = 4548-4) <3.8 4.3-6.1 L Lab Interpretation (test code = Abnormal 89062-3) [facility] HospitalHEMOGLOBIN [id number] 11:44:00 Test Item Value Reference Range Interpretation Comments HEMOGLOBIN A1C (BEAKER) (test code = < % 4.3-6.1 L 368) COMPREHENSIVE METABOLIC [id number] 11:14:00 Test Item Value Reference Range Interpretation [...] 347) EGFR (BEAKER) (test 10 mL/min/1.73 ESTIMA ABDULLAHI GFR IS code = 1092) sq m NOT ACCURATE CREATININE CLEARANCE IN PREDICTING GLOMERULAR FILTRATION RATE . ESTIMATED GFR I S NOT APPLICABLE FOR DIALYSIS PATIEN TS. Agricultural Systems Specialist ID - [id number] 11:08:00 Test Item Value Reference Range Interpretation Comments PHOSPHORUS (BEAKER) (test code = 5.4 mg/dL 2.3-4.7 H 604) Agricultural Systems Specialist ID - [id number] 11:08:00 Test Item Value Reference Range Interpretation Comments MAGNESIUM (BEAKER) (test code = 2.3 mg/dL 1.6-2.6 627) Agricultural Systems Specialist ID - NTPCBC W/PLT COUNT & AUTO [id number] 10:57:00 Test Item Value Reference Range Interpretation [...] (test code = 2801) Pulmonary Funct Lab [id number] 10:54:00Shauna Campa, FOIL CUTTER, LAND CLASSIFIER 02/23/2020 4:15 [facility] PFT CHARTING REPORT Infection Control/Hand Hygiene procedures followed throughout the encounter with patient: YesPatient Identification Method: Patient name verified on armband, and Medical record on armband, Is the order complete?: Yes Account ID#: [id number] Name: Joel Desouza Birthdate: 1955 Age: 64 [...] patient released from the lab without adverse outcome.[facility] HospitalBLOOD [id number] 22:00:00 Test Item Value Reference Range Interpretation Comments CULTURE (BEAKER) (test No growth in 5 days code = 1095) BLOOD [id number] 22:00:00 Test Item Value Reference Range Interpretation Comments CULTURE (BEAKER) (test No growth in 5 days code = 1095) LACTIC ACID, [id number] 00:13:00 Test Item Value Reference Range Interpretation Comments LACTATE BLOOD VENOUS (2) (BEAKER) 1.38 mmol/L 0.50-2.20 (test code = 2872) Agricultural Systems Specialist ID - PIAYA LSARS-COV2/RT-PCR ([facility])2019-12-10 21:39:00 Test Item Value Reference Range Interpretation Comments SARS-COV2/RT-PCR (test Not Detected Not Detected, Negative code = 4300137) SARS-COV-2 PERFORMING LAB [facility] (test code = 3187661) Negative results do not preclude SARS-CoV-2 infection [...] of the Act.Fact Sheet for Healthcare Pro viders:https://www.[employer]/Documents/Xpert%20Xpress%20SARS%20CoV-2/Fact%20Sh eets/3023802%93HLGP-DJJ-2%20HEALTHCARE%20PROVIDERS%20FACT%20SHEET.pdfFact Sheet for Healthcare Patients:https://www.[employer]/Documents/Xpert%20Xpress%20SARS%20CoV-2/Fact%20Sheets/3023801%20SARS-COV -2%20PATIENT%20FACT%20SHEET.pdfPerforming Laboratory:[facility], [place] [address]IFKECZMM [id number] 20:47:00 Test Item Value Reference Range Interpretation [...] failure, acidosis, acute neurological disease, and persistent tachyarrhythmia.Agricultural Systems Specialist ID - BSB-TYPE NATRIURETIC FACTOR (BNP)2019-12-10 20:45:00 Test Item Value Reference Range Interpretation Comments B-TYPE NATRIURETIC PEPTIDE 1761 pg/mL 0-100 H (BEAKER) (test code = 700) Agricultural Systems Specialist ID - [id number] 20:44:00 Test Item Value Reference Range Interpretation Comments PARTIAL THROMBOPLASTIN TIME 36.0 seconds 22.5-36.0 (BEAKER) (test code = 760) PROTHROMBIN TIME/[id number] 20:43:00 Test Item Value Reference Range Interpretation [...] for patients wiht mechanical heart valves.HEPATIC FUNCTION [id number] 20:41:00 Test Item Value Reference Range Interpretation [...] (test code = 36 U/L 6-55 347) Agricultural Systems Specialist ID - BSBASIC METABOLIC [id number] 20:41:00 Test Item Value Reference Range Interpretation [...] 697) EGFR (BEAKER) (test 33 mL/min/1.73 ESTIMA ABDULLAHI GFR IS code = 1092) sq m NOT ACCURATE CREATININE CLEARANCE IN PREDICTING GLOMERULAR FILTRATION RATE . ESTIMATED GFR I S NOT APPLICABLE FOR DIALYSIS PATIEN TS. Agricultural Systems Specialist ID - BSLACTIC ACID, [id number] 20:35:00 Test Item Value Reference Range Interpretation Comments LACTATE BLOOD VENOUS (2) (BEAKER) 2.02 mmol/L 0.50-2.20 (test code = 2872) Agricultural Systems Specialist ID - BSCBC W/PLT COUNT & AUTO [id number] 20:32:00 Test Item Value Reference Range Interpretation [...] = 2801) RAD, CHEST, 1 VIEW, NON [id number] 20:23:00Referring: Dr. Yary Fernando for exam:->SHORTNESS OF [...] Karissa Romero MDReport Verified Date/Time: 12/10/2019 20:23:47 CMV PCR, [id number] 14:32:00 Test Item Value Reference Range Interpretation [...] and its performance characteristics determined by the [facility] Path ology Department, Section of Molecular Pathology. [...] ng/mL 10.0-20.0 code = 657) [facility] LaboratoryALPHA FETOPROTEIN (AFP), TUMOR [id number] 18:05:00 Test Item Value Reference Range Interpretation Comments ALPHA-FETOPROTEIN (BEAKER) (test 2.8 ng/mL <10.0 code = 1094) Agricultural Systems Specialist ID - BSHEPATIC FUNCTION [id number] 15:21:00 Test Item Value Reference Range Interpretation [...] (test code = 42 U/L 6-55 347) Agricultural Systems Specialist ID - BSBASIC METABOLIC [id number] 15:21:00 Test Item Value Reference Range Interpretation [...] 697) EGFR (BEAKER) (test 32 mL/min/1.73 ESTIMA ABDULLAHI GFR IS code = 1092) sq m NOT ACCURATE CREATININE CLEARANCE IN PREDICTING GLOMERULAR FILTRATION RATE . ESTIMATED GFR I S NOT APPLICABLE FOR DIALYSIS PATIEN TS. Agricultural Systems Specialist ID - BSPROTHROMBIN TIME/[id number] 15:03:00 Test Item Value Reference Range Interpretation [...] mechanical heart valves.CBC W/PLT COUNT & AUTO [id number] 14:52:00 Test Item Value Reference Range Interpretation [...] 0-1 PERCENT (BEAKER) (test code = 2801) TISSUE [id number] 10:25:00Surgical Pathology Report Case: [id number] Authorizing Provider: Aaron Green MD Collected: 08/31/2019 1120 Ordering Location: [facility] Radiology Angio Received: 08/31/2019 1257 Pathologist: Mandie Tyler MD Specimen: Biopsy, Liver LIVER, TRANSJUGULAR NEEDLE BIOPSIES- FIBROSIS STAGE 4 OF 4, CONSISTENT WITH CIRRHOSIS- see comment Signing Path ologist Direct Phone Line: [phone] signed by Mandie Tyler MD on 09/04/2019 at 10:25 AMThe liver biopsy shows foci of sinusoidal dilatation and congestion with dilated venous radicals. These features could be secondary to portal hypertension or may suggest a chronic venous outflow obstruction. 56782, 84853 L6Vymcocf with history of bilateral lung transplants in 2012, and now with ascites and portal hypertension. A. Liver biopsyThe case is received in one part labeled with the patient's information as [id number] which corresponds to the accompanying requisition slip. [...] evaluated Immunohistochemistry technical testing was performed at [facility], Pathology Laboratory where it was developed [...] to perform high complexity clinical laboratory testing.SINA [id number] 18:36:00Referring: Dr. Yary Fernando for Exam:->refractory ascitesFINAL REPORT History: Portal hypertension, recurrent ascites. PROCEDURE: Following informed written consent, general endotracheal anesthesia was administered and the patient's right cervical region was prepped and draped in the usual sterile manner. Maximum sterile barrier techniques were utilized. Access was gained to the right internal jugular vein using ultrasound guidance and a micropuncture needle. A 10 [place] sheath was placed at the access site. A 5 [place] multipurpose catheter and Smith wire were then [...] using a 5 mm balloon and a [place]stein catheter was advanced over the wire into the main portal vein. Portal venography was performed. An Amplatz wire was then placed through the portal venous access andinto the superior mesenteric vein. A 45 cm 10 [place] sheath was advanced over the wire into [...] Persistent hepatopedal flow is seen in the [place] portal veins. No varices are identified. Post [...] Liao MDReport VerifiedDate/Time: 09/01/2019 18:36:48 Reading Location: [place] [address] Angio Body Reading Room BILIRUBIN, [id number] 07:58:00 Test Item Value Reference Range Interpretation Comments BILIRUBIN DIRECT (BEAKER) (test 0.6 mg/dL 0.1-0.5 H code = 706) Agricultural Systems Specialist ID - SAMY MCOMPREHENSIVE METABOLIC [id number] 07:58:00 Test Item Value Reference Range Interpretation [...] 347) EGFR (BEAKER) (test 45 mL/min/1.73 ESTIMA ABDULLAHI GFR IS code = 1092) sq m NOT ACCURATE CREATININE CLEARANCE IN PREDICTING GLOMERULAR FILTRATION RATE . ESTIMATED GFR I S NOT APPLICABLE FOR DIALYSIS PATIEN BAM. Agricultural Systems Specialist ID - SAMY MPROTHROMBIN TIME/[id number] 07:53:00 Test Item Value Reference Range Interpretation [...] INR is2.5-3.5 for patients wiht mechanical heart valves.[id number] 07:53:00 Test Item Value Reference Range Interpretation Comments PARTIAL THROMBOPLASTIN TIME 36.5 seconds 22.5-36.0 H (BEAKER) (test code = 760) CBC W/PLT COUNT & AUTO [id number] 07:45:00 Test Item Value Reference Range Interpretation [...] PERCENT (BEAKER) (test code = 2801) TACROLIMUS [id number] 11:25:00 Test Item Value Reference Range Interpretation Comments TACROLIMUS BLOOD (BEAKER) (test 5.7 ng/mL 10.0-20.0 L code = 657) Agricultural Systems Specialist [facility] FBASIC METABOLIC [id number] 07:04:00 Test Item Value Reference Range Interpretation [...] 697) EGFR (BEAKER) (test 46 mL/min/1.73 ESTIMA ABDULLAHI GFR IS code = 1092) sq m NOT ACCURATE CREATININE CLEARANCE IN PREDICTING GLOMERULAR FILTRATION RATE . ESTIMATED GFR I S NOT APPLICABLE FOR DIALYSIS PATIEN TS. Agricultural Systems Specialist ID - [id number] 06:37:00 Test Item Value Reference Range Interpretation Comments PARTIAL THROMBOPLASTIN TIME 33.2 seconds 22.5-36.0 (BEAKER) (test code = 760) PROTHROMBIN TIME/[id number] 06:36:00 Test Item Value Reference Range Interpretation [...] mechanical heart valves.CBC W/PLT COUNT & AUTO [id number] 06:26:00 Test Item Value Reference Range Interpretation [...] = 2801) U/S, HEPATIC PORTAL VESSEL WITH [id number] 22:44:00Referring: Dr. Yary Fernando for exam:->Assess for [...] 5.The kidneys are small. Signed: Mina Mcmahan MDRepellett [facility] Verified Date/Time: 08/25/2019 22:44:25 Reading Location: [address] Consult Reading Room CBC W/PLT COUNT & AUTO [id number] 10:38:00 Test Item Value Reference Range Interpretation [...] CONCENTRATION Decreased (CELLAVISION)(BEAKER) (test code = 3438) Agricultural Systems Specialist ID - Ade Lucero comments: Slide comments:TACROLIMUS [id number] 09:27:00 Test Item Value Reference Range Interpretation Comments TACROLIMUS BLOOD (BEAKER) (test 7.6 ng/mL 10.0-20.0 L code = 657) Agricultural Systems Specialist ID - MARCELLE FBASIC METABOLIC [id number] 08:01:00 Test Item Value Reference Range Interpretation [...] 697) EGFR (BEAKER) (test 44 mL/min/1.73 ESTIMA ABDULLAHI GFR IS code = 1092) sq m NOT ACCURATE CREATININE CLEARANCE IN PREDICTING GLOMERULAR FILTRATION RATE . ESTIMATED GFR I S NOT APPLICABLE FOR DIALYSIS PATIEN TS. Agricultural Systems Specialist ID - SAMY MPROTHROMBIN TIME/[id number] 07:12:00 Test Item Value Reference Range Interpretation [...] INR is2.5-3.5 for patients wiht mechanical heart valves.[id number] 07:12:00 Test Item Value Reference Range Interpretation Comments PARTIAL THROMBOPLASTIN TIME 33.9 seconds 22.5-36.0 (BEAKER) (test code = 760) CBC W/PLT COUNT & AUTO [id number] 11:28:00 Test Item Value Reference Range Interpretation [...] CONCENTRATION Decreased (CELLAVISION)(BEAKER) (test code = 3438) Agricultural Systems Specialist ID [place] Bhandari OverholtUser comments: Slide comments:HEPATIC FUNCTION PANEL 2019-08-24 [...] (test code = 35 U/L 6-55 347) Agricultural Systems Specialist ID [place] IBANEZ FBASIC METABOLIC [id number] 07:38:00 Test Item Value Reference Range Interpretation [...] 697) EGFR (BEAKER) (test 45 mL/min/1.73 ESTIMA ABDULLAHI GFR IS code = 1092) sq m NOT ACCURATE CREATININE CLEARANCE IN PREDICTING GLOMERULAR FILTRATION RATE . ESTIMATED GFR I S NOT APPLICABLE FOR DIALYSIS PATIEN TS. Agricultural Systems Specialist ID [place] IBANEZ FGAMMA GLUTAMYL TRANSFERASE (GGT)2019-08-24 07:38:00 Test Item Value Reference Range Interpretation Comments GAMMA GLUTAMYL TRANSFERASE (BEAKER) 151 U/L 9-64 H (test code = 364) Agricultural Systems Specialist ID - MARCELLE FU/S, ABDOMINAL, [id number] 15:29:00Referring: Dr. Yary [facility] to be [...] Bilateral hydroceles and scrotal edema. Signed: Sumi Harper MDReport Verified Date/Time: 08/23/2019 15:29:24 Reading Location: [address] Consult Reading Room U/S, TESTICULAR, WITH [id number] 15:29:00 Referring: Dr. Yary Fernando for exam:->ASCITESReason [...] hydroceles and scrotal edema. Signed: Ken Harper MDReport Verified Date/Time: 08/23/2019 15:29:24 Reading Location: [facility] C013X Ortho Consult Reading Room [id number] 11:14:00 Test Item Value Reference Range Interpretation Comments LIPASE (BEAKER) (test code = 749) 37 U/L 8-78 Agricultural Systems Specialist ID [place] IBANEZ [id number] 11:14:00 Test Item Value Reference Range Interpretation Comments AMYLASE (BEAKER) (test code = 349) 80 U/L 25-125 Agricultural Systems Specialist ID [place] IBANEZ FBASIC METABOLIC [id number] 11:14:00 Test Item Value Reference Range Interpretation [...] 697) EGFR (BEAKER) (test 38 mL/min/1.73 ESTIMA ABDULLAHI GFR IS code = 1092) sq m NOT ACCURATE CREATININE CLEARANCE IN PREDICTING GLOMERULAR FILTRATION RATE . ESTIMATED GFR I S NOT APPLICABLE FOR DIALYSIS PATIEN TS. Agricultural Systems Specialist ID [place] IBANEZ FHEPATIC FUNCTION [id number] 11:14:00 Test Item Value Reference Range Interpretation [...] (test code = 34 U/L 6-55 347) Agricultural Systems Specialist ID - MARCELLE [id number] 11:09:00 Test Item Value Reference Range Interpretation Comments PARTIAL THROMBOPLASTIN TIME 28.8 seconds 22.5-36.0 (BEAKER) (test code = 760) PROTHROMBIN TIME/[id number] 11:08:00 Test Item Value Reference Range Interpretation [...] mechanical heart valves.CBC W/PLT COUNT & AUTO [id number] 10:53:00 Test Item Value Reference Range Interpretation [...] = 2801) BODY FLUID CELL COUNT WITH [id number] 14:49:00 Test Item Value Reference Range Interpretation [...] EDTA Tube (test code = 2873) TACROLIMUS [id number] 14:35:00 Test Item Value Reference Range Interpretation Comments TACROLIMUS BLOOD (BEAKER) (test 6.7 ng/mL 10.0-20.0 L code = 657) Agricultural Systems Specialist ID - SAMY DAWN/Cassandra, [id number] 13:52:00Referring: Dr. Yary Sears ascitic fluid for cell count and differential If Cr > 1.5, do not remove more than 3.5L of ascitic fluid. If > 3L removed, please administer 200 mL of albumin 25%(50 grams) IV x 1Labs to be ordered:->Other (please add comment)Reason for Exam:->ascitesFINAL REPORT Ultrasound guided paracentesis Clinical History: Ascites. Sedation: None. Microfilm Duplicating Unit Supervisor: Aure Huerta PA-C Supervising Physician: Edmund Barraza MD Rrt: None. Estimated Blood Loss: < 1 mL. [...] anesthesia was achieved with lidocaine, a 5 [place] one-step catheter was advanced into the peritoneal cavity under ultrasound guidance. After completion of drainage, the catheter was removed. Th ere was no evidence of complication. Impression:Successful ultrasound guided paracentesis. Signed: Edmund Barrazaeport Verified Date/Time: 08/19/2019 13:52:23 Reading Location: [facility] P006J Ultrasound Reading Room BASIC METABOLIC [id number] 13:08:00 Test Item Value Reference Range Interpretation [...] 697) EGFR (BEAKER) (test 34 mL/min/1.73 ESTIMA ABDULLAHI GFR IS code = 1092) sq m NOT ACCURATE CREATININE CLEARANCE IN PREDICTING GLOMERULAR FILTRATION RATE . ESTIMATED GFR I S NOT APPLICABLE FOR DIALYSIS PATIEN TS. Agricultural Systems Specialist ID - ROSIANGCBC W/PLT COUNT & AUTO [id number] 12:54:00 Test Item Value Reference Range Interpretation [...] 0-1 PERCENT (BEAKER) (test code = 2801) [id number] 11:24:00 Test Item Value Reference Range Interpretation Comments POC-CREATININE 1.9 mg/dL 0.6-1.3 H : TESTED AT [facility] ([facility]) (test [address] [facility] code = 1859) [place], [address]: Agricultural Systems Specialist/Techni demetrice ID = [id number] for SHOULDERS, ELLE IFER POC-EGFR ([facility]) 36 mL/min/1.73M2 (test code = 1860) BODY FLUID CELL COUNT WITH [id number] 19:33:00 Test Item Value Reference Range Interpretation [...] EDTA Tube (test code = 2873) U/S, [id number] 17:37:00Referring: Dr. Yary Gaviriad ascitic fluid for cell count and differential [...] skin and deep soft tissues. A 5 [place] one-step catheter was inserted and removed from the peritoneal space and approximately 3.2 liters of clear yellow fluid was aspirated from the abdomen. Specimens were collected for the lab. There were no immediate complications. Impression: Successful ultrasound guided paracentesis with aspiration of 3.2 liters of fluid. Signed: Savjani, Javed MDReport Verified Date/Time: 08/12/2019 17:37:37 Reading Location: [address] Body Reading Room -[id number] 16:08:00 Test Item Value Reference Range Interpretation Comments POC-CREATININE 2.2 mg/dL 0.6-1.[address] [facility] [address] (BEAKER) ([place] code = 1859) [address] POC-EGFR (BEAKER) 30 mL/min/1.73M2 (test code = 1860) BODY FLUID CELL COUNT WITH [id number] 15:08:00 Test Item Value Reference Range Interpretation [...] EDTA Tube (test code = 2873) U/S, [id number] 13:11:00Referring: Dr. Yary Sears ascitic fluid for cell count and differential If Cr > 1.5, do not remove more than 3.5L of ascitic fluid. If > 3L removed, please administer 200 mL of albumin 25%(50 grams) IV x 1Labs to be ordered:->Other (please add comment)Reason for Exam:->ascitesFINAL REPORT Ultrasound guided paracentesis. Clinical History: Ascites. Sedation: None. Microfilm Duplicating Unit Supervisor: Lynn Chávez PA-C Rrt: None. Estimated Blood Loss: < 1 cc. [...] was achieved with 2% lidocaine, a 5 [place] one-step catheter was advanced into the peritoneal cavity under ultrasound guidance. After completion of drainage, the catheter was removed. There was no evidence of complication. Impression:Successful ultrasound guided paracentesis. Signed: Edmund Barraza Verified Date/Time: 08/05/2019 13 :11:25 Reading Location: [address] Ultrasound Reading Room POCT-CREATININE 2019-08-05 09:57:00 Test Item Value Reference Range Interpretation Comments POC-CREATININE 1.6 mg/dL 0.6-1.[address] [facility] [address] (BEAKER) ([place] code = 1859) [address] POC-EGFR (BEAKER) 44 mL/min/1.73M2 (test code = 1860) BODY FLUID CELL COUNT WITH [id number] 22:25:00 Test Item Value Reference Range Interpretation [...] Vial (test code = 2873) HEPATIC FUNCTION [id number] 17:04:00 Test Item Value Reference Range Interpretation [...] (test code = 23 U/L 6-55 347) Agricultural Systems Specialist [place] LBASIC METABOLIC [id number] 17:04:00 Test Item Value Reference Range Interpretation [...] 697) EGFR (BEAKER) (test 46 mL/min/1.73 ESTIMA ABDULLAHI GFR IS code = 1092) sq m NOT ACCURATE CREATININE CLEARANCE IN PREDICTING GLOMERULAR FILTRATION RATE . ESTIMATED GFR I S NOT APPLICABLE FOR DIALYSIS PATIEN TS. Agricultural Systems Specialist ID - SERGIO LPT/[id number] 17:00:00 Test Item Value Reference Range Interpretation [...] mechanical heart valves.CBC W/PLT COUNT & AUTO [id number] 16:45:00 Test Item Value Reference Range Interpretation [...] PERCENT (BEAKER) (test code = 2801) BLOOD [id number] 14:00:00 Test Item Value Reference Range Interpretation Comments CULTURE (BEAKER) (test No growth in 5 days code = 1095) BLOOD [id number] 14:00:00 Test Item Value Reference Range Interpretation Comments CULTURE (BEAKER) (test No growth in 5 days code = 1095) BODY FLUID CULTURE + GRAM [id number] 09:19:00 Test Item Value Reference Range Interpretation Comments CULTURE (BEAKER) (test No growth code = 1095) GRAM STAIN RESULT 2+ White blood cells (BEAKER) (test code = seen 1123) GRAM STAIN RESULT No organisms seen (BEAKER) (test code = 55790) TACROLIMUS [id number] 11:05:00 Test Item Value Reference Range Interpretation Comments TACROLIMUS BLOOD (BEAKER) (test 9.4 ng/mL 10.0-20.0 L code = 657) Agricultural Systems Specialist ID - AMES FBASIC METABOLIC [id number] 07:34:00 Test Item Value Reference Range Interpretation [...] 697) EGFR (BEAKER) (test 43 mL/min/1.73 ESTIMA ABDULLAHI GFR IS code = 1092) sq m NOT ACCURATE CREATININE CLEARANCE IN PREDICTING GLOMERULAR FILTRATION RATE . ESTIMATED GFR I S NOT APPLICABLE FOR DIALYSIS PATIEN TS. Agricultural Systems Specialist ID - CASEY [id number] 07:30:00 Test Item Value Reference Range Interpretation Comments PHOSPHORUS (BEAKER) (test code = 2.8 mg/dL 2.3-4.7 604) Agricultural Systems Specialist ID - CASEY [id number] 07:30:00 Test Item Value Reference Range Interpretation Comments MAGNESIUM (BEAKER) (test code = 1.7 mg/dL 1.6-2.6 627) Agricultural Systems Specialist ID - CASEY MHEPATIC FUNCTION [id number] 07:30:00 Test Item Value Reference Range Interpretation [...] (test code = 18 U/L 6-55 347) Agricultural Systems Specialist ID - CASEY MCBC W/PLT COUNT & AUTO [id number] 07:15:00 Test Item Value Reference Range Interpretation [...] PERCENT (BEAKER) (test code = 2801) TACROLIMUS [id number] 14:21:00 Test Item Value Reference Range Interpretation Comments TACROLIMUS BLOOD (BEAKER) (test 5.3 ng/mL 10.0-20.0 L code = 657) Agricultural Systems Specialist ID [place] LIRIANOIDBASIC METABOLIC [id number] 07:26:00 Test Item Value Reference Range Interpretation [...] 697) EGFR (BEAKER) (test 44 mL/min/1.73 ESTIMA ABUDLLAHI GFR IS code = 1092) sq m NOT ACCURATE CREATININE CLEARANCE IN PREDICTING GLOMERULAR FILTRATION RATE . ESTIMATED GFR I S NOT APPLICABLE FOR DIALYSIS PATIEN TS. Agricultural Systems Specialist ID [place] IBANEZ [id number] 07:22:00 Test Item Value Reference Range Interpretation Comments PHOSPHORUS (BEAKER) (test code = 3.4 mg/dL 2.3-4.7 604) Agricultural Systems Specialist ID [place] MARCELLE [id number] 07:22:00 Test Item Value Reference Range Interpretation Comments MAGNESIUM (BEAKER) (test code = 1.9 mg/dL 1.6-2.6 627) Agricultural Systems Specialist ID [place] MARCELLE FHEPATIC FUNCTION [id number] 07:22:00 Test Item Value Reference Range Interpretation [...] (test code = 19 U/L 6-55 347) Agricultural Systems Specialist [facility] FCBC W/PLT COUNT & AUTO [id number] 06:59:00 Test Item Value Reference Range Interpretation [...] PERCENT (BEAKER) (test code = 2801) U/S, [id number] 17:39:00Referring: Dr. Yary Olivas to be ordered:->Body Fluid Culture (w/Gram Stain, C\\T\\S)cell countReason for exam:- >ABDOMINAL PAINReason for exam:->EMESISFINAL REPORT Ultrasound guided paracentesis Clinical History: Ascites. Sedation: None. Microfilm Duplicating Unit Supervisor: Aure Huerta PA-C Supervising Physician: Denilson Liao MD Rrt: None. Estimated Blood Loss: < 1 mL. [...] anesthesia was achieved with lidocaine, a 5 [place] one-step catheter was advanced into the peritoneal cavity under ultrasound guidance. After completion of drainage, the catheter was removed. T here was no evidence of complication. Impression:Successful ultrasound guided paracentesis. Signed: Denilson Liao MDReport Verified Date/Time: 07/28/2019 17:39:14 Reading Location: [facility] P006 Ultrasound Reading Room CMV PCR, [id number] 17:32:00 Test Item Value Reference Range Interpretation [...] and its performance characteristics determined by the [facility] Path ology Department, Section of Molecular Pathology. It has not been cleared or approved by the U.S. Food and Drug Administration (FDA), since FDA approval is not required for clinical use of the test. Validation was done as required by The Clinical Laboratory Improvement Amendments of 1988.CBC W/PLT COUNT & AUTO [id number] 11:59:00 Test Item Value Reference Range Interpretation [...] CONCENTRATION Decreased (CELLAVISION)(BEAKER) (test code = 3438) Agricultural Systems Specialist ID - Phillip Ferrell comments: Slide comments:TACROLIMUS LEVEL 2019-07-28 10:17:00 Test Item Value Reference Range Interpretation Comments TACROLIMUS BLOOD (BEAKER) (test 3.9 ng/mL 10.0-20.0 L code = 657) Agricultural Systems Specialist ID - JONES, CHEST, 1 VIEW, NON [id number] 09:31:00Referring: Dr. Yary Fernando for exam:->s/p lung [...] are intact and well aligned. Signed: Micheal Crenshawepjessica Verified Date/Time: 07/28/2019 09:31:05 Reading Location: [facility] Reading Room [id number] 05:42:00 Test Item Value Reference Range Interpretation Comments PHOSPHORUS (BEAKER) (test code = 3.3 mg/dL 2.3-4.7 604) Agricultural Systems Specialist ID - CASEY [id number] 05:42:00 Test Item Value Reference Range Interpretation Comments MAGNESIUM (BEAKER) (test code = 2.0 mg/dL 1.6-2.6 627) Agricultural Systems Specialist ID - CASEY MBASIC METABOLIC [id number] 05:42:00 Test Item Value Reference Range Interpretation [...] 697) EGFR (BEAKER) (test 52 mL/min/1.73 ESTIMA ABDULLAHI GFR IS code = 1092) sq m NOT ACCURATE CREATININE CLEARANCE IN PREDICTING GLOMERULAR FILTRATION RATE . ESTIMATED GFR I S NOT APPLICABLE FOR DIALYSIS PATIEN TS. Agricultural Systems Specialist ID - CASEY EPATIC FUNCTION [id number] 05:42:00 Test Item Value Reference Range Interpretation [...] (test code = 21 U/L 6-55 347) Agricultural Systems Specialist ID - CASEY MBODY FLUID CELL COUNT WITH [id number] 19:31:00 Test Item Value Reference Range Interpretation [...] (BEAKER) EDTA Tube (test code = 2873) B-TYPE NATRIURETIC FACTOR (BNP)2019-07-27 13:13:00 Test Item Value Reference Range Interpretation Comments B-TYPE NATRIURETIC PEPTIDE (BEAKER) 500 pg/mL 0-100 H (test code = 700) Agricultural Systems Specialist ID [place] MARCELLE [id number] 13:07:00 Test Item Value Reference Range Interpretation Comments PHOSPHORUS (BEAKER) (test code = 2.5 mg/dL 2.3-4.7 604) Agricultural Systems Specialist ELIZABETH IBANEZ [id number] 13:07:00 Test Item Value Reference Range Interpretation Comments MAGNESIUM (BEAKER) (test code = 1.5 mg/dL 1.6-2.6 L 627) Agricultural Systems Specialist ELIZABETH IBANEZ FBASIC METABOLIC [id number] 13:07:00 Test Item Value Reference Range Interpretation [...] 697) EGFR (BEAKER) (test 56 mL/min/1.73 ESTIMA ABDULLAHI GFR IS code = 1092) sq m NOT ACCURATE CREATININE CLEARANCE IN PREDICTING GLOMERULAR FILTRATION RATE . ESTIMATED GFR I S NOT APPLICABLE FOR DIALYSIS PATIEN TS. Agricultural Systems Specialist ID [place] IBANEZ FHEPATIC FUNCTION [id number] 13:07:00 Test Item Value Reference Range Interpretation [...] (test code = 26 U/L 6-55 347) Agricultural Systems Specialist ID - MARCELLE [id number] 13:07:00 Test Item Value Reference Range Interpretation Comments AMYLASE (BEAKER) (test code = 349) 55 U/L 25-125 Agricultural Systems Specialist ID - MARCELLE [id number] 13:07:00 Test Item Value Reference Range Interpretation Comments LIPASE (BEAKER) (test code = 749) 14 U/L 8-78 Agricultural Systems Specialist ID [place] MARCELLE FLACTIC ACID, [id number] 13:01:00 Test Item Value Reference Range Interpretation Comments LACTATE BLOOD VENOUS 1.0 mmol/L 0.5-2.2 Specime n slightly (2) (BEAKER) (test hemolyzed code = 8785) Agricultural Systems Specialist ID [place] MARCELLE FCBC W/PLT COUNT & AUTO [id number] 12:40:00 Test Item Value Reference Range Interpretation [...] (BEAKER) (test code = 2801) BLOOD GAS, [id number] 12:40:00 Test Item Value Reference Range Interpretation [...] (BEAKER) (test code = 1819) 21.0 % [id number] 12:29:00 Test Item Value Reference Range Interpretation [...] is2.5-3.5 for patients wiht mechanical heart valves.U/S, [id number] 11:38:00 Referring: Dr. Yary Sears ascitic fluid for cell count and differential If Cr > 1.5, do not remove more than 3.5L of ascitic fluid. If > 3L removed, please administer 200 mL of albumin 25%(50 grams) IV x 1Labs to be ordered:->Other (please add comment)Reason for Exam:->ascitesFINAL REPORT Ultrasound guided paracentesis. Clinical History: Ascites. Sedation: None. Microfilm Duplicating Unit Supervisor: Lynn Chávez PA-C Rrt: None. Estimated Blood Loss: < 1 cc. [...] was achieved with 2% lidocaine, a 5 [place] one-step catheter was advanced into the peritoneal cavity under ultrasound guidance. After completion of drainage, the catheter was removed. There was no evidence of complication. Impression:Successful ultrasound guided paracentesis. Signed: Steven Kimbrough MDReport Verified Date/Time: 07/13/201911:38:58 Reading Location: [address] Ultrasound Reading Room BLOOD [id number] 13:44:00 Test Item Value Reference Range Interpretation Comments CULTURE (BEAKER) (test No growth in 5 days code = 1095) BLOOD [id number] 13:44:00 Test Item Value Reference Range Interpretation Comments CULTURE (BEAKER) (test No growth in 5 days code = 1095) BODY FLUID CULTURE + GRAM [id number] 10:08:00 Test Item Value Reference Range Interpretation Comments CULTURE (BEAKER) (test code No growth = 1095) GRAM STAIN RESULT (BEAKER) <1+ WBCs (test code = 1123) GRAM STAIN RESULT (BEAKER) No organisms seen (test code = 95657) [id number] 15:38:00 Test Item Value Reference Range Interpretation Comments POC-CREATININE 1.5 mg/dL 0.6-1.[address] [facility] 6720 (BEAKER) (test [place] code = 1859) [address] POC-EGFR (BEAKER) 48 mL/min/1.73M2 (test code = 1860) TACROLIMUS [id number] 10:37:00 Test Item Value Reference Range Interpretation Comments TACROLIMUS BLOOD (BEAKER) (test 4.6 ng/mL 10.0-20.0 L code = 657) [id number] 07:42:00 Test Item Value Reference Range Interpretation Comments MAGNESIUM (BEAKER) (test code = 1.6 mg/dL 1.6-2.6 627) BASIC METABOLIC [id number] 07:42:00 Test Item Value Reference Range Interpretation [...] 697) EGFR (BEAKER) (test 50 mL/min/1.73 ESTIMA ABDULLAHI GFR IS code = 1092) sq m NOT ACCURATE CREATININE CLEARANCE IN PREDICTING GLOMERULAR FILTRATION RATE . ESTIMATED GFR I S NOT APPLICABLE FOR DIALYSIS PATIEN TS. CBC W/PLT COUNT & AUTO [id number] 07:19:00 Test Item Value Reference Range Interpretation [...] = 2801) BODY FLUID CELL COUNT WITH [id number] 14:42:00 Test Item Value Reference Range Interpretation [...] EDTA Tube (test code = 2873) U/S, [id number] 13:48:00Referring: Dr. Yary Olivas to be ordered:->Body Fluid Culture (w/Gram Stain, C\\T\\S)fluid cell countLabs to be ordered:->Glucose+LDH+ProteinLabs to be ordered:->Other (please add comment)Reason for exam:->abdominal distention and ascites.FINAL REPORT Ultrasound guided paracentesis. Clinical History: Ascites. Sedation: None. Microfilm Duplicating Unit Supervisor: Lynn Chávez PA-C Rrt: None. Estimated Blood Loss: < 1 cc. [...] was achieved with 2% lidocaine, a 5 [place] one-step catheter was advanced into the peritoneal cavity under ultrasound guidance. After completion of drainage, the catheter was removed. There was no evidence of complication. Impression:Successful ultrasound guided paracentesis. Signed: Edmund Barraza MDReport Verified Date/Time: 07/07/2019 13:48:10 Reading Location: [place] [address] Ultrasound Reading Room TACROLIMUS [id number] 10:03:00 Test Item Value Reference Range Interpretation Comments TACROLIMUS BLOOD (BEAKER) (test 3.5 ng/mL 10.0-20.0 L code = 657) [id number] 07:00:00 Test Item Value Reference Range Interpretation Comments PHOSPHORUS (BEAKER) (test code = 2.9 mg/dL 2.3-4.7 604) [id number] 07:00:00 Test Item Value Reference Range Interpretation Comments MAGNESIUM (BEAKER) (test code = 1.4 mg/dL 1.6-2.6 L 627) HEPATIC FUNCTION [id number] 07:00:00 Test Item Value Reference Range Interpretation [...] 6-55 347) CBC W/PLT COUNT & AUTO [id number] 07:00:00 Test Item Value Reference Range Interpretation [...] (BEAKER) (test code = 2801) BASIC METABOLIC [id number] 07:00:00 Test Item Value Reference Range Interpretation [...] 697) EGFR (BEAKER) (test 49 mL/min/1.73 ESTIMA ABDULLAHI GFR IS code = 1092) sq m NOT ACCURATE CREATININE CLEARANCE IN PREDICTING GLOMERULAR FILTRATION RATE . ESTIMATED GFR I S NOT APPLICABLE FOR DIALYSIS PATIEN TS. RESPIRATORY PANEL [id number] 17:34:00 Test Item Value Reference Range Interpretation [...] decisions. This sample was tested at the [facility] Molecular Diagnostics Laboratory using the [employer] FilmArray Respiratory Panel. It is FDA cleared and has been verified and approved by the [facility] Molecular Diagnostics Laboratory for clinical use on nasopharyngeal swab specimens.The performance of the FilmArrayRP has not been established in individuals who received influenza vaccine. Recent administration ofa nasal influenza vaccine may cause false positive results for Influenza A and/orInfluenza B.TACROLIMUS [id number] 09:50:00 Test Item Value Reference Range Interpretation Comments TACROLIMUS BLOOD (BEAKER) (test 3.6 ng/mL 10.0-20.0 L code = 657) BASIC METABOLIC [id number] 07:47:00 Test Item Value Reference Range Interpretation [...] 697) EGFR (BEAKER) (test 52 mL/min/1.73 ESTIMA ABDULLAHI GFR IS code = 1092) sq m NOT ACCURATE CREATININE CLEARANCE IN PREDICTING GLOMERULAR FILTRATION RATE . ESTIMATED GFR I S NOT APPLICABLE FOR DIALYSIS PATIEN TS. [id number] 07:39:00 Test Item Value Reference Range Interpretation Comments PHOSPHORUS (BEAKER) (test code = 2.6 mg/dL 2.3-4.7 604) [id number] 07:39:00 Test Item Value Reference Range Interpretation Comments MAGNESIUM (BEAKER) (test code = 1.4 mg/dL 1.6-2.6 L 627) HEPATIC FUNCTION [id number] 07:39:00 Test Item Value Reference Range Interpretation [...] 6-55 347) CBC W/PLT COUNT & AUTO [id number] 06:46:00 Test Item Value Reference Range Interpretation [...] PERCENT (BEAKER) (test code = 2801) PROTHROMBIN [id number] 02:37:00 Test Item Value Reference Range Interpretation [...] INR is2.5-3.5 for patients wiht mechanical heart valves.PT/[id number] 02:37:00 Test Item Value Reference Range Interpretation [...] for patients wiht mechanical heart valves.BASIC METABOLIC [id number] 02:23:00 Test Item Value Reference Range Interpretation [...] 697) EGFR (BEAKER) (test 49 mL/min/1.73 ESTIMA ABDULLAHI GFR IS code = 1092) sq m NOT ACCURATE CREATININE CLEARANCE IN PREDICTING GLOMERULAR FILTRATION RATE . ESTIMATED GFR I S NOT APPLICABLE FOR DIALYSIS PATIEN TS. [id number] 02:22:00 Test Item Value Reference Range Interpretation Comments PHOSPHORUS (BEAKER) (test code = 2.1 mg/dL 2.3-4.7 L 604) [id number] 02:22:00 Test Item Value Reference Range Interpretation Comments MAGNESIUM (BEAKER) (test code = 1.4 mg/dL 1.6-2.6 L 627) HEPATIC FUNCTION [id number] 02:22:00 Test Item Value Reference Range Interpretation [...] 29 U/L 6-55 347) RAD, CHEST, 2 [id number] 02:14:00Referring: Dr. Yary Fernando for exam:->pneumoniaFINAL REPORT [...] or acute bony abnormality. Signed: Karissa Romero MDRort Verified Date/Time: 07/06/2019 02:14:45 CBC W/PLT COUNT & AUTO [id number] 01:50:00 Test Item Value Reference Range Interpretation [...] PERCENT (BEAKER) (test code = 2801) TACROLIMUS [id number] 13:42:00 Test Item Value Reference Range Interpretation Comments TACROLIMUS BLOOD (BEAKER) (test 5.3 ng/mL 10.0-20.0 L code = 657) [id number] 12:03:00 Test Item Value Reference Range Interpretation Comments PHOSPHORUS (BEAKER) (test code = 2.9 mg/dL 2.3-4.7 604) [id number] 12:03:00 Test Item Value Reference Range Interpretation Comments MAGNESIUM (BEAKER) (test code = 1.7 mg/dL 1.6-2.6 627) COMPREHENSIVE METABOLIC [id number] 12:03:00 Test Item Value Reference Range Interpretation [...] 347) EGFR (BEAKER) (test 43 mL/min/1.73 ESTIMA ABDULLAHI GFR IS code = 1092) sq m NOT ACCURATE CREATININE CLEARANCE IN PREDICTING GLOMERULAR FILTRATION RATE . ESTIMATED GFR I S NOT APPLICABLE FOR DIALYSIS PATIEN TS. LACTATE DEHYDROGENASE (LDH)2019-07-03 12:03:00 Test Item Value Reference Range Interpretation Comments LACTATE DEHYDROGENASE (BEAKER) (test 207 U/L 125-220 code = 635) CBC W/PLT COUNT & AUTO [id number] 11:41:00 Test Item Value Reference Range Interpretation [...] PERCENT (BEAKER) (test code = 2801) U/S, [id number] 12:23:00Referring: Dr. Yary Fernando for exam:->ABDOMINAL PAINReason [...] MDReport Verified Date/Time: 06/27/2019 12:23:23 Reading Location: [address] Transitional Reading Room BASI METABOLIC [id number] 10:54:00 Test Item Value Reference Range Interpretation [...] 697) EGFR (BEAKER) (test 55 mL/min/1.73 ESTIMA ABDULLAHI GFR IS code = 1092) sq m NOT ACCURATE CREATININE CLEARANCE IN PREDICTING GLOMERULAR FILTRATION RATE . ESTIMATED GFR I S NOT APPLICABLE FOR DIALYSIS PATIEN TS. PROTHROMBIN [id number] 10:41:00 Test Item Value Reference Range Interpretation [...] mechanical heart valves.CBC W/PLT COUNT & AUTO [id number] 10:35:00 Test Item Value Reference Range Interpretation [...] PERCENT (BEAKER) (test code = 2801) TACROLIMUS [id number] 14:52:00 Test Item Value Reference Range Interpretation Comments TACROLIMUS BLOOD (BEAKER) (test 7.9 ng/mL 10.0-20.0 L code = 657) [id number] 14:27:00 Test Item Value Reference Range Interpretation Comments MAGNESIUM (BEAKER) (test code = 1.6 mg/dL 1.6-2.6 627) BASIC METABOLIC [id number] 14:27:00 Test Item Value Reference Range Interpretation [...] 697) EGFR (BEAKER) (test 41 mL/min/1.73 ESTIMA ABDULLAHI GFR IS code = 1092) sq m NOT ACCURATE CREATININE CLEARANCE IN PREDICTING GLOMERULAR FILTRATION RATE . ESTIMATED GFR I S NOT APPLICABLE FOR DIALYSIS PATIEN TS. CBC W/PLT COUNT & AUTO [id number] 14:18:00 Test Item Value Reference Range Interpretation [...] (BEAKER) (test code = 2801) CMV PCR, [id number] 15:45:00 Test Item Value Reference Range Interpretation [...] and its performance characteristics determined by the [facility] Path ology Department, Section of Molecular Pathology. [...] L code = 657) RAD, CHEST, 2 [id number] 11:35:00Referring: Dr. Yary Fernando for Exam:->s/p lung transplantFINAL REPORT INDICATION: s/p lung transplant COMPARISON: None TECHNIQUE: Frontal and lateral views of the chest. FINDINGS: Lungs and pleura: Clear lungs. No effusion.Heart and med iastinum: Normal heart size. Unremarkable mediastinal contours.Osseous structures: No acute abnormality.Additional findings: Post procedure changes compatible with prior transplant. IMPRESSION: No acute intrathoracic abnormality. Signed: Fitz Fernandez MDReport Verified Date/Time: 05/19/2019 11:35:20 Reading Location: [facility] Reading Room COMPREHENSIVE METABOLIC [id number] 10:12:00 Test Item Value Reference Range Interpretation [...] 347) EGFR (BEAKER) (test 29 mL/min/1.73 ESTIMA ABDULLAHI GFR IS code = 1092) sq m NOT ACCURATE CREATININE CLEARANCE IN PREDICTING GLOMERULAR FILTRATION RATE . ESTIMATED GFR I S NOT APPLICABLE FOR DIALYSIS PATIEN TS. [id number] 10:04:00 Test Item Value Reference Range Interpretation Comments PHOSPHORUS (BEAKER) (test code = 3.7 mg/dL 2.3-4.7 604) [id number] 10:04:00 Test Item Value Reference Range Interpretation Comments MAGNESIUM (BEAKER) (test code = 1.5 mg/dL 1.6-2.6 L 627) LACTATE DEHYDROGENASE (LDH)2019-05-19 10:04:00 Test Item Value Reference Range Interpretation Comments LACTATE DEHYDROGENASE (BEAKER) (test 186 U/L 125-220 code = 635) CBC W/PLT COUNT & AUTO [id number] 09:24:00 Test Item Value Reference Range Interpretation [...] (BEAKER) (test code = 2801) CMV PCR, [id number] 14:26:00 Test Item Value Reference Range Interpretation [...] and its performance characteristics determined by the [facility] Path ology Department, Section of Molecular Pathology. It has not been cleared or approved by the U.S. Food and Drug Administration (FDA), since FDA approval is not required for clinical use of the test. Validation was done as required by The Clinical Laboratory Improvement Amendments of 1988.MR ABDOMEN, WITH 2019-05-13 15:52:00Referring: Dr. Yary Noriega MRCPWith MRCPLocation: For [place] Only->with MRCPFINAL REPORT TECHNIQUE: MRI of the [...] MDReport Verified Date/Time: 05/13/2019 15:52:20 Reading Location[facility] [address] [facility] [place]CROLIMUS [id number] 13:36:00 Test Item Value Reference Range Interpretation Comments TACROLIMUS BLOOD (BEAKER) (test 9.8 ng/mL 10.0-20.0 L code = 657) [id number] 13:00:00 Test Item Value Reference Range Interpretation Comments PHOSPHORUS (BEAKER) (test code = 3.2 mg/dL 2.3-4.7 604) [id number] 13:00:00 Test Item Value Reference Range Interpretation Comments MAGNESIUM (BEAKER) (test code = 1.6 mg/dL 1.6-2.6 627) COMPREHENSIVE METABOLIC [id number] 13:00:00 Test Item Value Reference Range Interpretation [...] 347) EGFR (BEAKER) (test 41 mL/min/1.73 ESTIMA ABDULLAHI GFR IS code = 1092) sq m NOT ACCURATE CREATININE CLEARANCE IN PREDICTING GLOMERULAR FILTRATION RATE . ESTIMATED GFR I S NOT APPLICABLE FOR DIALYSIS PATIEN TS. CBC W/PLT COUNT & AUTO [id number] 12:49:00 Test Item Value Reference Range Interpretation [...] 3438) Received comment: User comments: Slide comments:TACROLIMUS [id number] 09:45:00 Test Item Value Reference Range Interpretation Comments TACROLIMUS BLOOD (BEAKER) (test 13.2 ng/mL 10.0-20.0 code = 657) ALPHA FETOPROTEIN (AFP), TUMOR [id number] 18:10:00 Test Item Value Reference Range Interpretation Comments ALPHA-FETOPROTEIN (BEAKER) (test 2.8 ng/mL <10.0 code = 1094) [id number] 17:45:00 Test Item Value Reference Range Interpretation Comments MAGNESIUM (BEAKER) (test code = 1.6 mg/dL 1.6-2.6 627) BASIC METABOLIC [id number] 17:45:00 Test Item Value Reference Range Interpretation [...] 697) EGFR (BEAKER) (test 44 mL/min/1.73 ESTIMA ABDULLAHI GFR IS code = 1092) sq m NOT ACCURATE CREATININE CLEARANCE IN PREDICTING GLOMERULAR FILTRATION RATE . ESTIMATED GFR I S NOT APPLICABLE FOR DIALYSIS PATIEN TS. HEPATIC FUNCTION [id number] 17:45:00 Test Item Value Reference Range Interpretation [...] = 32 U/L 6-55 347) BASIC METABOLIC [id number] 17:43:00 Test Item Value Reference Range Interpretation [...] 697) EGFR (BEAKER) (test 43 mL/min/1.73 ESTIMA ABDULLAHI GFR IS code = 1092) sq m NOT ACCURATE CREATININE CLEARANCE IN PREDICTING GLOMERULAR FILTRATION RATE . ESTIMATED GFR I S NOT APPLICABLE FOR DIALYSIS PATIEN TS. URINALYSIS W/ [id number] 17:35:00 Test Item Value Reference Range Interpretation [...] /LPF = 514) SOURCE(BEAKER) (test code = 7292) PROTHROMBIN [id number] 17:26:00 Test Item Value Reference Range Interpretation [...] mechanical heart valves.CBC W/PLT COUNT & AUTO [id number] 17:19:00 Test Item Value Reference Range Interpretation [...] = 2801) CBC W/PLT COUNT & AUTO [id number] 17:18:00 Test Item Value Reference Range Interpretation [...] = 2801) BODY FLUID CULTURE + GRAM [id number] 14:13:00 Test Item Value Reference Range Interpretation Comments CULTURE (BEAKER) (test code No growth = 1095) GRAM STAIN RESULT (BEAKER) 1+ WBCs (test code = 1123) GRAM STAIN RESULT (BEAKER) No organisms seen (test code = 17669) LACTATE DEHYDROGENASE (LDH), BODY [id number] 19:19:00 Test Item Value Reference Range Interpretation [...] guided paracentesis Clinical History: Ascites. Sedation: None. Microfilm Duplicating Unit Supervisor: Aure Huerta PA-C Supervising Physician: Torey Burkett MD Rrt: None. Estimated Blood Loss: < 1 mL. [...] anesthesia was achieved with lidocaine, a 5 [place] one-step catheter was advanced into the peritoneal cavity under ultrasound guidance. After completion of drainage, the catheter was removed. There was no evidence of complication. This procedure was performed by PRIYANKA Ramírez under direct supervision of Torey Burkett M.D. Impression:Successful ultrasound guided paracentesis. Signed:Torey Burkett MDReport Verified Date/Time: 05/01/2019 18:38:36 Reading Location: [address] Ultrasound Reading Room U/S, [id number] 18:05:00Referring: Dr. Yary Olivas to be ordered:->Body Fluid Culture (w/Gram Stain, C\\T\\S)Labs to be ordered:->Glucose+LDH+ProteinReason for exam:->ABD SWELLINGShould this be performed at the bedside?->YesFINAL REPORT Ultrasound guided paracentesis, 05/01/2019. Clinical History: Ascites. Sedation: None. Microfilm Duplicating Unit Supervisor: Lola. Rrt: None. Estimated Blood Loss: < 1 cc. [...] was achieved with 1% lidocaine, a 5 [place] one-step catheter was advanced into the peritoneal cavity under ultrasound guidance. After completion of drainage, the catheter was removed. There was no evidence of complication.Patient Disposition: The patient was discharged from the ultrasound department after the paracentesis, in good condition. Impression:Successful ultrasound guided paracentesis. Signed: Rohit Rutheport Verified Date/Time: 05/01/2019 18:05:44 Reading Location: [address] Body Reading Room BODY FLUID CELL COUNT WITH [id number] 17:23:00 Test Item Value Reference Range Interpretation [...] (BEAKER) (test code = 2873) ALBUMIN, BODY [id number] 17:17:00 Test Item Value Reference Range Interpretation Comments ALBUMIN FLUID (BEAKER) (test code = 0.5 gm/dL 501) Reference Range: No Normals Assay performance has not been validated for this type of specimen.PROTEIN, BODY [id number] 17:16:00 Test Item Value Reference Range Interpretation [...] 10.0-20.0 L code = 657) COMPREHENSIVE METABOLIC [id number] 15:01:00 Test Item Value Reference Range Interpretation [...] 347) EGFR (BEAKER) (test 51 mL/min/1.73 ESTIMA ABDULLAHI GFR IS code = 1092) sq m NOT ACCURATE CREATININE CLEARANCE IN PREDICTING GLOMERULAR FILTRATION RATE . ESTIMATED GFR I S NOT APPLICABLE FOR DIALYSIS PATIEN TS. [id number] 14:57:00 Test Item Value Reference Range Interpretation Comments MAGNESIUM (BEAKER) (test code = 1.8 mg/dL 1.6-2.6 627) [id number] 14:57:00 Test Item Value Reference Range Interpretation [...] mechanical heart valves.RAD, CHEST, 1 VIEW, NON [id number] 14:53:00Referring: Dr. Yary Fernando for exam:->chest painShould [...] MDReport Verified Date/Time: 05/01/2019 14:53:51 Reading Location: [facility] Reading Room CBC W/PLT COUNT & [...] = 2801) BODY FLUID CULTURE + GRAM [id number] 11:52:00 Test Item Value Reference Range Interpretation Comments CULTURE (BEAKER) (test No growth code = 1095) GRAM STAIN RESULT <1+ White blood cells (BEAKER) (test code = seen 1123) GRAM STAIN RESULT No organisms seen (BEAKER) (test code = 30478) BODY FLUID CELL COUNT WITH [id number] 18:29:00 Test Item Value Reference Range Interpretation [...] = 2873) CBC W/PLT COUNT & AUTO [id number] 14:08:00 Test Item Value Reference Range Interpretation [...] = 3438) Received comment: User comments: Slide comments:[id number] 12:58:00 Test Item Value Reference Range Interpretation Comments LIPASE (BEAKER) (test code = 749) 153 U/L 8-78 H BASIC METABOLIC [id number] 12:58:00 Test Item Value Reference Range Interpretation [...] 697) EGFR (BEAKER) (test 40 mL/min/1.73 ESTIMA ABDULLAHI GFR IS code = 1092) sq m NOT ACCURATE CREATININE CLEARANCE IN PREDICTING GLOMERULAR FILTRATION RATE . ESTIMATED GFR I S NOT APPLICABLE FOR DIALYSIS PATIEN TS. HEPATIC FUNCTION [id number] 12:58:00 Test Item Value Reference Range Interpretation [...] (test code = 37 U/L 6-55 347) [id number] 12:49:00 Test Item Value Reference Range Interpretation [...] is2.5-3.5 for patients wiht mechanical heart valves.BLOOD [id number] 12:00:00 Test Item Value Reference Range Interpretation Comments CULTURE (BEAKER) (test No growth in 5 days code = 1095) BLOOD [id number] 12:00:00 Test Item Value Reference Range Interpretation Comments CULTURE (BEAKER) (test No growth in 5 days code = 1095) STOOL CULTURE + SHIGA [id number] 15:15:00 Test Item Value Reference Range Interpretation Comments CULTURE (BEAKER) No Salmonella, Shigella (test code = 1095) or Campylobacter isolated TACROLIMUS [id number] 09:27:00 Test Item Value Reference Range Interpretation Comments TACROLIMUS BLOOD (BEAKER) (test 9.5 ng/mL 10.0-20.0 L code = 657) CBC W/PLT COUNT & AUTO [id number] 08:36:00 Test Item Value Reference Range Interpretation [...] = 3438) Received comment: User comments: Slide comments:[id number] 07:02:00 Test Item Value Reference Range Interpretation Comments PHOSPHORUS (BEAKER) (test code = 2.7 mg/dL 2.3-4.7 604) [id number] 07:02:00 Test Item Value Reference Range Interpretation Comments MAGNESIUM (BEAKER) (test code = 1.7 mg/dL 1.6-2.6 627) BASIC METABOLIC [id number] 07:02:00 Test Item Value Reference Range Interpretation [...] 697) EGFR (BEAKER) (test 33 mL/min/1.73 ESTIMA ABDULLAHI GFR IS code = 1092) sq m NOT ACCURATE CREATININE CLEARANCE IN PREDICTING GLOMERULAR FILTRATION RATE . ESTIMATED GFR I S NOT APPLICABLE FOR DIALYSIS PATIEN TS. HEPATIC FUNCTION [id number] 07:02:00 Test Item Value Reference Range Interpretation [...] code = 29 U/L 6-55 347) CALCIUM, [id number] 06:41:00 Test Item Value Reference Range Interpretation Comments CALCIUM IONIZED (BEAKER) (test 1.10 mmol/L 1.12-1.27 L code = 698) PH, BLOOD (BEAKER) (test code = 7.41 1810) SHIGA TOXIN [id number] 13:55:00 Test Item Value Reference Range Interpretation Comments SHIGA TOXIN 1 (BEAKER) (test Not detected Not detected code = 2177) SHIGA TOXIN 2 (BEAKER) (test Not detected Not detected code = 2179) CBC W/PLT COUNT & AUTO [id number] 13:00:00 Test Item Value Reference Range Interpretation [...] few = 481) Wbc differential done manuallyTACROLIMUS [id number] 10:40:00 Test Item Value Reference Range Interpretation Comments TACROLIMUS BLOOD (BEAKER) (test 3.0 ng/mL 10.0-20.0 L code = 657) STOOL PATH [id number] 10:16:00 Test Item Value Reference Range Interpretation Comments PATHOGEN EXAM CHARGED (BEAKER) (test Done code = 2381) CALCIUM, [id number] 07:43:00 Test Item Value Reference Range Interpretation Comments CALCIUM IONIZED (BEAKER) (test 1.14 mmol/L 1.12-1.27 code = 698) PH, BLOOD (BEAKER) (test code = 7.42 1810) [id number] 06:35:00 Test Item Value Reference Range Interpretation Comments PHOSPHORUS (BEAKER) (test code = 2.4 mg/dL 2.3-4.7 604) [id number] 06:35:00 Test Item Value Reference Range Interpretation Comments MAGNESIUM (BEAKER) (test code = 1.6 mg/dL 1.6-2.6 627) BASIC METABOLIC [id number] 06:35:00 Test Item Value Reference Range Interpretation [...] 697) EGFR (BEAKER) (test 40 mL/min/1.73 ESTIMA ABDULLAHI GFR IS code = 1092) sq m NOT ACCURATE CREATININE CLEARANCE IN PREDICTING GLOMERULAR FILTRATION RATE . ESTIMATED GFR I S NOT APPLICABLE FOR DIALYSIS PATIEN TS. HEPATIC FUNCTION [id number] 06:35:00 Test Item Value Reference Range Interpretation [...] = 30 U/L 6-55 347) RESPIRATORY PANEL [id number] 14:16:00 Test Item Value Reference Range Interpretation [...] decisions. This sample was tested at the [facility] Molecular Diagnostics Laboratory using the [employer] FilmArray Respiratory Panel. It is FDA cleared and has been verified and approved by the [facility] Diagnostics Laboratory for clinical use on nasopharyngeal swab specimens.The performance of the FilmArrayRP has not been established in individuals who received influenza vaccine. Recent administration ofa nasal influenza vaccine may cause false positive results for Influenza A and/orInfluenza B.TACROLIMUS [id number] 11:08:00 Test Item Value Reference Range Interpretation Comments TACROLIMUS BLOOD (BEAKER) (test 2.8 ng/mL 10.0-20.0 L code = 657) C. DIFFICILE GDH [id number] 10:53:00 Test Item Value Reference Range Interpretation Comments CDT TOXIN (test code Negative Negative = [id number]) CDT GDH ANTIGEN (test Negative Negative No ind ication of code = [id number]) Clostridi um difficile infection and n o colonization. Discontinue ent phyllis isolation and t herapy. Testing performed by [employer] Rapid Cassette Assay. For GDH, published sensitivity of the assay is 98.7% compared to cytotoxicity testing. For Toxin AB, published sensitivity is 87.8% and specificity 99.4% compared to cytotoxicity testing.Verification of kit performance was done by the [facility] Microbiology Lab prior to clinical use.BASIC METABOLIC [id number] 10:21:00 Test Item Value Reference Range Interpretation [...] 697) EGFR (BEAKER) (test 33 mL/min/1.73 ESTIMA ABDULLAHI GFR IS code = 1092) sq m NOT ACCURATE CREATININE CLEARANCE IN PREDICTING GLOMERULAR FILTRATION RATE . ESTIMATED GFR I S NOT APPLICABLE FOR DIALYSIS PATIEN TS. PERIPHERAL BLOOD SMEAR - PATHOLOGIST [id number] 09:58:00 Test Item Value Reference Range Interpretation Comments PERIPHERAL SMR REVIEW Rare atypical (BEAKER) (test code = lymphocytes, favore 2640) reactive. No circulating blasts. Clinical follow up recommended. [id number] Macario Gianfrancoerlinda, (BEAKER) (test code = M.D.(electronic 9556) signature) CBC W/PLT COUNT & AUTO [id number] 09:36:00 Test Item Value Reference Range Interpretation [...] K/uL 0.00-0.00 H (CELLAVISION)(BEAKER) (test code = 1838) TOTAL COUNTED (BEAKER) (test code = 100 [...] 3438) Received comment: User comments: Slide comments:POCT-GLUCOSE [id number] 09:31:00 Test Item Value Reference Range Interpretation Comments POC-GLUCOSE METER 103 mg/dL 70-110 : TESTED A T [facility] 6720 (BEAKER) (test code = PARESH AVALOS MS, 1538) [id number]: Agricultural Systems Specialist/Techni demetrice ID = [id number] for BG SAUCEDO IMMUNOGLOBULIN G (IGG)2019-04-23 07:17:00 Test Item Value Reference Range Interpretation Comments IMMUNOGLOBULIN G (IGG) (BEAKER) 291 mg/dL 540-1,822 L (test code = 427) CALCIUM, [id number] 07:14:00 Test Item Value Reference Range Interpretation Comments CALCIUM IONIZED (BEAKER) (test 1.10 mmol/L 1.12-1.27 L code = 698) PH, BLOOD (BEAKER) (test code = 7.43 1810) [id number] 07:11:00 Test Item Value Reference Range Interpretation Comments CORTISOL, TOTAL (BEAKER) (test code 3.7 ug/dL 3.7-19.4 = 2755) BLOOD GAS, [id number] 07:09:00 Test Item Value Reference Range Interpretation [...] (BEAKER) (test code = 1819) 21.0 % [id number] 06:54:00 Test Item Value Reference Range Interpretation Comments PHOSPHORUS (BEAKER) (test code = 3.1 mg/dL 2.3-4.7 604) [id number] 06:54:00 Test Item Value Reference Range Interpretation Comments MAGNESIUM (BEAKER) (test code = 1.7 mg/dL 1.6-2.6 627) BASIC METABOLIC [id number] 06:54:00 Test Item Value Reference Range Interpretation [...] 697) EGFR (BEAKER) (test 35 mL/min/1.73 ESTIMA ABDULLAHI GFR IS code = 1092) sq m NOT ACCURATE CREATININE CLEARANCE IN PREDICTING GLOMERULAR FILTRATION RATE . ESTIMATED GFR I S NOT APPLICABLE FOR DIALYSIS PATIEN TS. HEPATIC FUNCTION [id number] 06:54:00 Test Item Value Reference Range Interpretation [...] = 28 U/L 6-55 347) VANCOMYCIN LEVEL, [id number] 06:48:00 Test Item Value Reference Range Interpretation Comments VANCOMYCIN RANDOM (BEAKER) (test 6.0 ug/mL code = 523) Reference Range: No NormalsLACTIC ACID, [id number] 06:42:00 Test Item Value Reference Range Interpretation Comments LACTATE BLOOD ARTERIAL (2) 2.1 mmol/L 0.5-2.2 (BEAKER) (test code = 2874) FECAL [id number] 01:59:00 Test Item Value Reference Range Interpretation Comments FECAL LEUKOCYTES No fecal leukocytes No fecal leukocytes (BEAKER) (test code = seen seen 992) BLOOD GAS, [id number] 23:40:00 Test Item Value Reference Range Interpretation [...] code = 1819) 21.0 % LEGIONELLA ANTIGEN, [id number] 19:38:00 Test Item Value Reference Range Interpretation Comments L. PNEUMOPHILA Negative - see Negative fo r L. SEROGP 1 UR AG comment pneumophila (BEAKER) (test code serogrou p 1 antigen, = 1156) suggesting no r ecent or current infe ction with this serog roup. Legionellosis c annot be ruled out si nce other serogroup s and species may cau se disease. STREP PNEUMONIAE [id number] 19:38:00 Test Item Value Reference Range Interpretation [...] the detection limit of the test.BASIC METABOLIC [id number] 19:14:00 Test Item Value Reference Range Interpretation [...] 697) EGFR (BEAKER) (test 31 mL/min/1.73 ESTIMA ABDULLAHI GFR IS code = 1092) sq m NOT ACCURATE CREATININE CLEARANCE IN PREDICTING GLOMERULAR FILTRATION RATE . ESTIMATED GFR I S NOT APPLICABLE FOR DIALYSIS PATIEN TS. [id number] 19:13:00 Test Item Value Reference Range Interpretation Comments HAPTOGLOBIN (BEAKER) (test code = 63 mg/dL 14-258 366) LACTIC ACID, [id number] 19:11:00 Test Item Value Reference Range Interpretation Comments LACTATE BLOOD VENOUS (2) (BEAKER) 2.0 mmol/L 0.5-2.2 (test code = 2872) LACTATE DEHYDROGENASE (LDH)2019-04-22 18:26:00 Test Item Value Reference Range Interpretation Comments LACTATE DEHYDROGENASE (BEAKER) (test 199 U/L 125-220 code = 635) U/S, ABDOMINAL, [id number] 16:07:00Referring: Dr. Yary Fernando for exam:->abnormal LFTs [...] 2017.4. Left renal cyst. Signed: [facility]i [facility] Verified Date/Time: 04/22/2019 16:07:26 Reading Location:[address] Radiology Reading Room CMV PCR, [id number] 15:18:00 Test Item Value Reference Range Interpretation [...] and its performance characteristics determined by the [facility] Path ology Department, Section of Molecular Pathology. It has not been cleared or approved by the U.S. Food and Drug Administration (FDA), since FDA approval is not required for clinical use of the test. Validation was done as required by The Clinical Laboratory Improvement Amendments of 1988.EBV VIRAL [id number] 15:07:00 Test Item Value Reference Range Interpretation [...] (2) real-time PCR amplification and detection with OEXS-6-uhatinra primers and probes. A well-conserved region of the EBNA-1 gene is targeted, along with an internal control sequence used to confirm PCR amplification. Asymptomatic carriers and viral genetic variation, among other factors, can affect the accuracy of nucleic acid testing; therefore, results should be interpreted in light of clinical data.This test was developedand its performance characteristics determined by the [facility] Pathology Department, Section of Molecular Pathology. It [...] PLATELET CONCENTRATION Decreased (CELLAVISION)(BEAKER) (test code = 3439) Received comment: User comments: Slide comments:CBC W/PLT COUNT & AUTO [id number] 14:00:00 Test Item Value Reference Range Interpretation [...] WBC 0-0 (test code = 413) TROPONIN [id number] 13:53:00 Test Item Value Reference Range Interpretation [...] acute neurological disease, and persistent tachyarrhythmia.BASIC METABOLIC [id number] 13:45:00 Test Item Value Reference Range Interpretation [...] 697) EGFR (BEAKER) (test 32 mL/min/1.73 ESTIMA ABDULLAHI GFR IS code = 1092) sq m NOT ACCURATE CREATININE CLEARANCE IN PREDICTING GLOMERULAR FILTRATION RATE . ESTIMATED GFR I S NOT APPLICABLE FOR DIALYSIS PATIEN TS. CHLORIDE, RANDOM [id number] 12:41:00 Test Item Value Reference Range Interpretation Comments CHLORIDE URINE (BEAKER) (test code = 45 meq/L 682) Reference Range: No NormalsCREATININE, RANDOM [id number] 12:41:00 Test Item Value Reference Range Interpretation Comments CREATININE URINE (BEAKER) (test 131.6 mg/dL code = 375) Reference Range: No NormalsPOTASSIUM, RANDOM [id number] 12:41:00 Test Item Value Reference Range Interpretation Comments POTASSIUM URINE (BEAKER) (test 68.5 meq/L code = 195) Reference Range: No NormalsSODIUM, RANDOM [id number] 12:41:00 Test Item Value Reference Range Interpretation Comments SODIUM URINE (BEAKER) (test code = 27 meq/L 243) Reference Range: No NormalsUREA NITROGEN, RANDOM [id number] 12:41:00 Test Item Value Reference Range Interpretation Comments UREA NITROGEN URINE (BEAKER) (test 732 mg/dL code = 538) Reference Range: No NormalsURINALYSIS W/ REFLEX URINE [id number] 11:59:00 Test Item Value Reference Range Interpretation [...] 1584) SOURCE(BEAKER) (test code = 2795) OSMOLALITY, [id number] 11:59:00 Test Item Value Reference Range Interpretation Comments OSMOLALITY URINE (BEAKER) (test 536 mOsm/kg 40-1,400 code = 614) SPECIFIC GRAVITY, [id number] 11:52:00 Test Item Value Reference Range Interpretation Comments SPECIFIC GRAVITY UA (BEAKER) (test code 1.024 1.001-1.035 = 468) TACROLIMUS [id number] 11:08:00 Test Item Value Reference Range Interpretation Comments TACROLIMUS BLOOD (BEAKER) (test 3.9 ng/mL 10.0-20.0 L code = 657) [id number] 09:00:00 Test Item Value Reference Range Interpretation Comments PROCALCITONIN (BEAKER) (test code 64.50 ng/mL <0.05 = 3036) SEPSIS RISK (ng/mL)Low: 0.05-0.50Intermediate: 0.51-2.00High: >=2.01RAPID INFLUENZA A&B [id number] 07:45:00 Test Item Value Reference Range Interpretation Comments RAPID INFLUENZA A AG (BEAKER) Negative Negative, Inconclusive (test code = 1622) RAPID INFLUENZA B AG (BEAKER) Negative Negative, Inconclusive (test code = 1623) B-TYPE NATRIURETIC FACTOR (BNP)2019-04-22 07:27:00 Test Item Value Reference Range Interpretation Comments B-TYPE NATRIURETIC PEPTIDE 1132 pg/mL 0-100 H (BEAKER) (test code = 700) TROPONIN [id number] 07:27:00 Test Item Value Reference Range Interpretation [...] acute neurological disease, and persistent tachyarrhythmia.BASIC METABOLIC [id number] 07:21:00 Test Item Value Reference Range Interpretation [...] 697) EGFR (BEAKER) (test 31 mL/min/1.73 ESTIMA ABDULLAHI GFR IS code = 1092) sq m NOT ACCURATE CREATININE CLEARANCE IN PREDICTING GLOMERULAR FILTRATION RATE . ESTIMATED GFR I S NOT APPLICABLE FOR DIALYSIS PATIEN TS. [id number] 07:20:00 Test Item Value Reference Range Interpretation Comments PHOSPHORUS (BEAKER) (test code = 4.7 mg/dL 2.3-4.7 604) [id number] 07:20:00 Test Item Value Reference Range Interpretation Comments MAGNESIUM (BEAKER) (test code = 1.5 mg/dL 1.6-2.6 L 627) HEPATIC FUNCTION [id number] 07:20:00 Test Item Value Reference Range Interpretation [...] (test code = 33 U/L 6-55 347) [id number] 07:13:00 Test Item Value Reference Range Interpretation [...] is2.5-3.5 for patients wiht mechanical heart valves.PROTHROMBIN TIME/[id number] 07:11:00 Test Item Value Reference Range Interpretation [...] is2.5-3.5 for patients wiht mechanical heart valves.CALCIUM, [id number] 06:59:00 Test Item Value Reference Range Interpretation Comments CALCIUM IONIZED (BEAKER) (test 1.10 mmol/L 1.12-1.27 L code = 698) PH, BLOOD (BEAKER) (test code = 7.32 1810) BLOOD GAS, [id number] 06:58:00 Test Item Value Reference Range Interpretation [...] 1819) 21.0 % RAD, ABDOMEN/KUB, 1 VIEW [id number] 06:48:00Referring: Dr. Yary Fernando for exam:->abdominal painFINAL [...] 04/22/2019 06:48:47 RAD, CHEST, 1 VIEW, NON [id number] 06:46:00Referring: Dr. Yary Fernando for exam:->chest discomfortShould this be performed at the psychiatric?->YesFINAL REPORT History: Chest discomfort. Comparison: 01/20/2019 Findings: [...] MDReport Verified Date/Time: 04/22/2019 06:46:48 BUN AND [id number] 12:39:00 Test Item Value Reference Range Interpretation Comments BLOOD UREA NITROGEN 29 mg/dL 7-21 H (BEAKER) (test code = 354) CREATININE (BEAKER) 1.40 mg/dL 0.57-1.25 H Specimen moderately (test code = 358) hemolyzed EGFR (BEAKER) (test 52 mL/min/1.73 ESTIMA ABDULLAHI GFR IS code = 1092) sq m NOT ACCURATE CREATININE CLEARANCE IN PREDICTING GLOMERULAR FILTRATION RATE . ESTIMATED GFR I S NOT APPLICABLE FOR DIALYSIS PATIEN TS. TISSUE [id number] 12:55:00Surgical Pathology Report Case: [id number] Authorizing Provider: Reg Serrano, Collected: 02/20/2019 1622 Ordering Location: [facility] Endoscopy Received: 02/23/2019 0843 Services Pathologist: [...] (SEE COMMENT) Signing Pathologist Direct Phone Line: [phone] signed by Gemma Samayoa MD on 03/03/2019 at 12:55 PMDecreased to absent plasma cells are seen inthe lamina propria consistent with history of common variable immunodeficiency. No features of microscopic colitis, active inflammation or parasites are seen.INTRADEPARTMENTAL CONSULTATION: - Sarah Siegel MD has seen specimen B and D and agrees with the diagnosis.01940 x 4, 06357, 66904Oungutu diarrhea, polyp of cecum , H/O lung [...] B1.Part C. Labeled "polyp, colon-right/ascending" are multiple kwong soft tissue fragments admixed with clotted blood ranging 0.2-0.5 cm, which are submitted in toto inC1.Part D. Labeled "large intestine, colon-left/descending" are multiple kwong soft tissue fragments ranging from 0.2-0.5 cm, which are submitted in toto in D1. CG/ewPerformed.The interpretation of this case included the use of immunohistochemistry or special stains.SQX883- no plasma cells highlighted in lamina propriaD CD138- no plasma cells highlighted in lamina propria , except in one fragmentControl Slides Examined: In-house known positive controls were evaluated along with the test tissue. These control slides run alongside of the patients sample show appropriate staining. Internal positive and negative controls when available are evaluated [facility] was developed [...] high complexity clinical laboratory testing.CT, CHEST, WITHOUT [id number] 16:06:00Referring: Dr. Yary Fernando for Exam:->s/p lung [...] Mancilla MDReport Verified Date/Time: 01/20/2019 16:06:56 Reading Location:[address] Body Reading Room CMV PCR, QUANTITATIVE [...] and its performance characteristics determined by the [facility] Path ology Department, Section of Molecular Pathology. [...] 10.0-20.0 code = 657) RAD, CHEST, 2 [id number] 12:28:00Referring: Dr. Yary Eastman Reason for Exam:->s/p [...] MDReport Verified Date/Time: 01/20/2019 12:28:25 Reading Location: [facility] Diagnostic Imaging Reading Room - [facility] 5.310.12 [id number] 12:02:00 Test Item Value Reference Range Interpretation Comments PROSTATE SPECIFIC ANTIGEN (BEAKER) 0.3 ng/mL 0.0-4.0 (test code = 844) MALES onlyVITAMIN D, [id number] 12:02:00 Test Item Value Reference Range Interpretation Comments VITAMIN D 25-OH (BEAKER) (test 23.8 ng/mL 6.6-49.9 code = 2764) Effective 04/10/2017: Reference Range ChangeNew: 6.6-49.9 ng/mL Previous: 13.0-47.8 ng/mLRecommended Vitamin D Target Range: 30.0-40.0 ng/mLMALES only HEMOGLOBIN [id number] 11:40:00 Test Item Value Reference Range Interpretation Comments HEMOGLOBIN A1C (BEAKER) (test code = 4.4 % 4.3-6.1 368) [id number] 10:45:00 Test Item Value Reference Range Interpretation Comments PHOSPHORUS (BEAKER) (test code = 3.5 mg/dL 2.3-4.7 604) [id number] 10:45:00 Test Item Value Reference Range Interpretation Comments MAGNESIUM (BEAKER) (test code = 1.5 mg/dL 1.6-2.6 L 627) COMPREHENSIVE METABOLIC [id number] 10:45:00 Test Item Value Reference Range Interpretation [...] 347) EGFR (BEAKER) (test 49 mL/min/1.73 ESTIMA ABDULLAHI GFR IS code = 1092) sq m NOT ACCURATE CREATININE CLEARANCE IN PREDICTING GLOMERULAR FILTRATION RATE . ESTIMATED GFR I S NOT APPLICABLE FOR DIALYSIS PATIEN TS. LIPID [id number] 10:45:00 Test Item Value Reference Range Interpretation [...] = 635) CBC W/PLT COUNT & AUTO [id number] 09:48:00 Test Item Value Reference Range Interpretation [...] code = 2801) SPUTUM CULTURE + GRAM [id number] 23:12:00 Test Item Value Reference Range Interpretation Comments CULTURE (BEAKER) Oropharyngeal (test code = 1095) contamination, specimen rejected. Recollect requested. GRAM STAIN RESULT <1+ WBCs (BEAKER) (test code = 1123) GRAM STAIN RESULT 10-15 epithelial cells (BEAKER) (test code = 08092) GRAM STAIN RESULT <1+ gram negative rods (BEAKER) (test code = 46922) GRAM STAIN RESULT 3+ gram positive cocci in (BEAKER) (test code pairs and clusters = 222645) TACROLIMUS [id number] 11:06:00 Test Item Value Reference Range Interpretation Comments TACROLIMUS BLOOD (BEAKER) (test 9.7 ng/mL 10.0-20.0 L code = 657) [id number] 09:20:00 Test Item Value Reference Range Interpretation Comments MAGNESIUM (BEAKER) (test code = 1.7 mg/dL 1.6-2.6 627) COMPREHENSIVE METABOLIC [id number] 09:20:00 Test Item Value Reference Range Interpretation [...] 347) EGFR (BEAKER) (test 48 mL/min/1.73 ESTIMA ABDULLAHI GFR IS code = 1092) sq m NOT ACCURATE CREATININE CLEARANCE IN PREDICTING GLOMERULAR FILTRATION RATE . ESTIMATED GFR I S NOT APPLICABLE FOR DIALYSIS PATIEN TS. CBC W/PLT COUNT & AUTO [id number] 09:01:00 Test Item Value Reference Range Interpretation [...] (BEAKER) (test code = 2801) CMV PCR, [id number] 15:10:00 Test Item Value Reference Range Interpretation [...] and its performance characteristics determined by the [facility] Path oly Department, Section of Molecular Pathology. It has not been cleared or approved by the U.S. Food and Drug Administration (FDA), since FDA approval is not required for clinical use of the test. Validation was done as required by The Clinical Laboratory Improvement Amendments of 1988.RESPIRATORY PANEL [facility] 2018-11-18 16:22:00 Test Item Value Reference [...] decisions. This sample was tested at the [facility] Molecular Diagnostics Laboratory using the ME[employer] Technologies[employer] Respiratory Panel. It is FDA cleared and has been verified and approved by the [facility] Molecular Diagnostics Laboratory for clinical use on nasopharyngeal swab specimens.The performance of the FilmArrayRP has not been established in individuals who received influenza vaccine. Recent administration ofa nasal influenza vaccine may cause false positive results for Influenza A and/orInfluenza B.HEMOGLOBIN [id number] 12:52:00 Test Item Value Reference Range Interpretation Comments HEMOGLOBIN A1C (BEAKER) (test code = 4.9 % 4.3-6.1 368) TACROLIMUS [id number] 12:24:00 Test Item Value Reference Range Interpretation Comments TACROLIMUS BLOOD (BEAKER) (test 2.8 ng/mL 10.0-20.0 L code = 657) [id number] 11:47:00 Test Item Value Reference Range Interpretation Comments PHOSPHORUS (BEAKER) (test code = 3.2 mg/dL 2.3-4.7 604) [id number] 11:47:00 Test Item Value Reference Range Interpretation Comments MAGNESIUM (BEAKER) (test code = 1.6 mg/dL 1.6-2.6 627) COMPREHENSIVE METABOLIC [id number] 11:47:00 Test Item Value Reference Range Interpretation [...] 347) EGFR (BEAKER) (test 60 mL/min/1.73 ESTIMA ABDULLAHI GFR IS code = 1092) sq m NOT ACCURATE CREATININE CLEARANCE IN PREDICTING GLOMERULAR FILTRATION RATE . ESTIMATED GFR I S NOT APPLICABLE FOR DIALYSIS PATIEN TS. LIPID [id number] 11:47:00 Test Item Value Reference Range Interpretation [...] = 635) CBC W/PLT COUNT & AUTO [id number] 11:19:00 Test Item Value Reference Range Interpretation [...] (test code = 2801) RAD, CHEST, 2 [id number] 10:04:00Reason for Exam:->s/p lung transplant FINAL REPORT Chest, 2 views. Clinical History: s/p lung transplant ComparisonStudy: August 05, 2018 Findings: The heart and lungs are within normal limits. Sternotomy wires are seen. Blunting of the right costophrenic angle is seen. No significant bony or soft tissue abnormalities are seen. Impression: No significant change. Signed: Georgi Mancilla Verified Date/Time: 11/18/2018 10:04:14 Reading Location: [address] Radiology Reading Room [id number] 13:40:00 Test Item Value Reference Range Interpretation Comments BLOOD UREA NITROGEN (BEAKER) (test 22 mg/dL 7-21 H code = 354) [id number] 13:40:00 Test Item Value Reference Range Interpretation Comments CREATININE (BEAKER) 1.03 mg/dL 0.57-1.25 (test code = 358) EGFR (BEAKER) (test 73 mL/min/1.73 ESTIMA ABDULLAHI GFR IS code = 1092) sq m NOT ACCURATE CREATININE CLEARANCE IN PREDICTING GLOMERULAR FILTRATION RATE . ESTIMATED GFR I S NOT APPLICABLE FOR DIALYSIS PATIEN TS. GIARDIA [id number] 15:23:00 Test Item Value Reference Range Interpretation Comments GIARDIA ANTIGEN Not detected Not detected NOTE: Due to (QUEST) (test code intermitt ent shedding, = 8219541) one negative sample does not necess arily rule out the presence of a parasitic infec tion. Performing Lab *[facility], [address] [place] [id number] Sumi Davila MD, PhDOVA AND PARASITE [id number] 07:46:00 Test Item Value Reference Range Interpretation [...] (test seen seen code = 248) U/S, [id number] 15:43:00Reason for Exam:->abdl distentionReason for Exam:->s/p lung [...] manner.After local anesthesia is achieved, a 5 [place] catheter is advanced into the peritoneal cavity. Approximately 1300 cc of serosanguineous fluid is drained, without immediate complications. Fluid is sent for analysis. Patient Disposition: The patient is discharged from the ultrasound department after the paracentesis, in good condition. Impression: Successful and uncomplicated ultrasound guided paracentesis is performed. Signed: Judy Perry MDReport Verified Date/Time: 08/19/2018 15:43:52 Reading Location: [facility] [id number] Ultrasound Reading Room Electronically signed by: JUDY PERRY M.D. on08/19/2018 03:43 PMRESPIRATORY PANEL [id number] 13:59:00 Test Item Value Reference Range Interpretation [...] decisions. This sample was tested at the [facility] Molecular Diagnostics Laboratory using the [employer] Respiratory Panel. It is FDA cleared and has been verified and approved by the [facility] Molecular Diagnostics Laboratory for clinical use on nasal swab specimens. It is not FDA-cleared for use on bronchial wash/lavage samples. However, for this sample type, validation was performed and test characteristics were determined and approved, by [facility] laboratory for clinical use under the Clinical Laboratory Improvement Amendments (CLIA) of 1988 requirements. Therefore, FDA clearance isnot required. This laboratory is CLIA-certified and [employer] ([employer])-accredited to perform high complexity testing.TACROLIMUS [id number] 13:46:00 Test Item Value Reference Range Interpretation Comments TACROLIMUS BLOOD (BEAKER) (test 5.5 ng/mL 10.0-20.0 L code = 657) PROTHROMBIN [id number] 13:05:00 Test Item Value Reference Range Interpretation Comments PROTIME (BEAKER) (test code = 14.6 seconds 11.7-14.7 759) INR (BEAKER) (test code = 370) 1.1 <=5.9 RECOMMENDED COUMADIN/WARFARIN INR THERAPY RANGESSTANDARD DOSE: 2.0 - 3.0 Includes: PROPHYLAXIS forvenous thrombosis, systemic embolization; TREATMENT for venous thrombosis and/or pulmonary embolus.HIGH RISK: Target INR is 2.5-3.5 for patients with mechanical heart valves.RAPID STREP A [id number] 11:41:00 Test Item Value Reference Range Interpretation Comments STREP A ANTIGEN (BEAKER) (test code Negative Negative = 556) [id number] 11:10:00 Test Item Value Reference Range Interpretation Comments MAGNESIUM (BEAKER) (test code = 1.4 mg/dL 1.6-2.6 L 627) BASIC METABOLIC [id number] 11:10:00 Test Item Value Reference Range Interpretation [...] 697) EGFR (BEAKER) (test 67 mL/min/1.73 ESTIMA ABDULLAHI GFR IS code = 1092) sq m NOT ACCURATE CREATININE CLEARANCE IN PREDICTING GLOMERULAR FILTRATION RATE . ESTIMATED GFR I S NOT APPLICABLE FOR DIALYSIS PATIEN TS. CBC W/PLT COUNT & AUTO [id number] 10:55:00 Test Item Value Reference Range Interpretation [...] (BEAKER) (test code = 2801) BUN AND [id number] 15:09:00 Test Item Value Reference Range Interpretation Comments BLOOD UREA NITROGEN 22 mg/dL 7-21 H (BEAKER) (test code = 354) CREATININE (BEAKER) 1.19 mg/dL 0.57-1.25 Specimen slightly (test code = 358) hemolyzed EGFR (BEAKER) (test 62 mL/min/1.73 ESTIMA ABDULLAHI GFR IS code = 1092) sq m NOT ACCURATE CREATININE CLEARANCE IN PREDICTING GLOMERULAR FILTRATION RATE . ESTIMATED GFR I S NOT APPLICABLE FOR DIALYSIS PATIEN TS. STOOL CULTURE + SHIGA [id number] 12:11:00 Test Item Value Reference Range Interpretation Comments CULTURE (BEAKER) No Salmonella, Shigella (test code = 1095) or Campylobacter isolated SHIGA TOXIN [id number] 16:28:00 Test Item Value Reference Range Interpretation Comments SHIGA TOXIN 1 (BEAKER) (test Not detected Not detected code = 2177) SHIGA TOXIN 2 (BEAKER) (test Not detected Not detected code = 2179) STOOL PATH [id number] 12:11:00 Test Item Value Reference Range Interpretation Comments PATHOGEN EXAM CHARGED (BEAKER) (test Done code = 2381) C. DIFFICILE GDH [id number] 16:18:00 Test Item Value Reference Range Interpretation Comments CDT TOXIN (test code Negative Negative = [id number]) CDT GDH ANTIGEN (test Negative Negative No ind ication of code = 3402989573) Clostridi um difficile infection and n o colonization. Discontinue ent phyllis isolation and t herapy. Testing performed by [employer] Rapid Cassette Assay. For GDH, published sensitivity of the assay is 98.7% compared to cytotoxicity testing. For Toxin AB, published sensitivity is 87.8% and specificity 99.4% compared to cytotoxicity testing.Verification of kit performance was done by the [facility] Microbiology Lab prior to clinical use.FECAL [id number] 14:50:00 Test Item Value Reference Range Interpretation Comments FECAL LEUKOCYTES No fecal leukocytes No fecal leukocytes (BEAKER) (test code = seen seen 992) CMV PCR, [id number] 14:34:00 Test Item Value Reference Range Interpretation [...] and its performance characteristics determined by the [facility] Path ology Department, Section of Molecular Pathology. [...] 4.8 ng/mL 10.0-20.0 L code = 657) [id number] 08:47:00 Test Item Value Reference Range Interpretation Comments PHOSPHORUS (BEAKER) (test code = 2.1 mg/dL 2.3-4.7 L 604) [id number] 08:47:00 Test Item Value Reference Range Interpretation Comments MAGNESIUM (BEAKER) (test code = 1.7 mg/dL 1.6-2.6 627) COMPREHENSIVE METABOLIC [id number] 08:47:00 Test Item Value Reference Range Interpretation [...] 347) EGFR (BEAKER) (test 61 mL/min/1.73 ESTIMA ABDULLAHI GFR IS code = 1092) sq m NOT ACCURATE CREATININE CLEARANCE IN PREDICTING GLOMERULAR FILTRATION RATE . ESTIMATED GFR I S NOT APPLICABLE FOR DIALYSIS PATIEN TS. LACTATE DEHYDROGENASE (LDH)2018-08-05 08:47:00 Test Item Value Reference Range Interpretation Comments LACTATE DEHYDROGENASE (BEAKER) (test 189 U/L 125-220 code = 635) RAD, CHEST, 2 [id number] 08:33:00Reason for Exam:->s/p lung transplant FINAL REPORT [...] unremarkable. Signed: Javed Paezeport Verified Date/Time: 08/05/2018 08:33:35 Reading Location: [facility] Radiology Reading Room CBC W/PLT COUNT & AUTO [id number] 08:23:00 Test Item Value Reference Range Interpretation [...] (test code = 2801) AFB CULTURE + [id number] 12:42:00 Test Item Value Reference Range Interpretation Comments CULTURE (BEAKER) (test No acid-fast bacilli code = 1095) isolated in 42 days AFB SMEAR (BEAKER) No acid fast bacilli (test code = 994) seen TACROLIMUS [id number] 11:26:00 Test Item Value Reference Range Interpretation Comments TACROLIMUS BLOOD (BEAKER) (test 5.6 ng/mL 10.0-20.0 L code = 657) CBC W/PLT COUNT & AUTO [id number] 08:07:00 Test Item Value Reference Range Interpretation [...] 0-1 PERCENT (BEAKER) (test code = 2801) [id number] 07:54:00 Test Item Value Reference Range Interpretation Comments MAGNESIUM (BEAKER) (test code = 1.7 mg/dL 1.6-2.6 627) BASIC METABOLIC [id number] 07:54:00 Test Item Value Reference Range Interpretation [...] 697) EGFR (BEAKER) (test 39 mL/min/1.73 ESTIMA ABDULLAHI GFR IS code = 1092) sq m NOT ACCURATE CREATININE CLEARANCE IN PREDICTING GLOMERULAR FILTRATION RATE . ESTIMATED GFR I S NOT APPLICABLE FOR DIALYSIS PATIEN TS. FUNGUS CULTURE + [id number] 13:47:00 Test Item Value Reference Range Interpretation Comments CULTURE (BEAKER) A <1+ Jane (test code = 1095) amira [place] FUNGUS SMEAR No fungi seen (BEAKER) (test code = 1406) TACROLIMUS [id number] 12:34:00 Test Item Value Reference Range Interpretation Comments TACROLIMUS BLOOD (BEAKER) (test 3.3 ng/mL 10.0-20.0 L code = 657) RAD, BONE DENSITY [id number] 12:09:00Reason for Exam:->alf use of prednisoneReason for Exam:->s/p lung transplantFINAL [...] MDReport Verified Date/Time: 06/05/2018 12:09:02 Reading Location: [facility] Reading Room IMMUNOGLOBULIN A (IGA)2018-06-05 11:42:00 Test [...] < mg/dL 540-1,822 L code = 427) [id number] 11:15:00 Test Item Value Reference Range Interpretation Comments MAGNESIUM (BEAKER) (test code = 1.6 mg/dL 1.6-2.6 627) BASIC METABOLIC [id number] 11:15:00 Test Item Value Reference Range Interpretation [...] 697) EGFR (BEAKER) (test 44 mL/min/1.73 ESTIMA ABDULLAHI GFR IS code = 1092) sq m NOT ACCURATE CREATININE CLEARANCE IN PREDICTING GLOMERULAR FILTRATION RATE . ESTIMATED GFR I S NOT APPLICABLE FOR DIALYSIS PATIEN TS. CBC W/PLT COUNT & AUTO [id number] 11:12:00 Test Item Value Reference Range Interpretation [...] code = 2801) SPUTUM CULTURE + GRAM [id number] 19:04:00 Test Item Value Reference Range Interpretation Comments CULTURE (BEAKER) 4+ Normal respiratory (test code = 1095) tre present GRAM STAIN RESULT 1+ WBCs (BEAKER) (test code = 1123) GRAM STAIN RESULT 0-5 epithelial cells (BEAKER) (test code = 35105) GRAM STAIN RESULT 1+ gram negative rods (BEAKER) (test code = 31989) GRAM STAIN RESULT 3+ gram positive rods (BEAKER) (test code = 361106) SPIN/CONCENTRATION [id number] 00:19:00 Test Item Value Reference Range Interpretation Comments CONCENTRATION CHARGED (BEAKER) (test Done code = 2657) CMV PCR, [id number] 14:39:00 Test Item Value Reference Range Interpretation [...] and its performance characteristics determined by the [facility] Path oly Department, Section of Molecular Pathology. It has [...] ng/mL 10.0-20.0 code = 657) RESPIRATORY PANEL [id number] 12:51:00 Test Item Value Reference Range Interpretation [...] decisions. This sample was tested at the [facility] Molecular Diagnostics Laboratory using the [employer] Respiratory Panel. It is FDA cleared and has been verified and approved by the [facility] Molecular Diagnostics Laboratory for clinical use on nasal swab specimens. It is not FDA-cleared for use on bronchial wash/lavage samples. However, for this sample type, validation was performed and test characteristics were determined and approved, by [facility] laboratory for clinical use under the Clinical Laboratory Improvement Amendments (CLIA) of 1988 requirements. Therefore, FDA clearance isnot required. This laboratory is CLIA-certified and [employer] (CAP)-accredited to perform high complexity testing.HEMOGLOBIN [id number] 10:37:00 Test Item Value Reference Range Interpretation Comments HEMOGLOBIN A1C (BEAKER) (test code = 4.5 % 4.3-6.1 368) CREATININE, RANDOM [id number] 09:55:00 Test Item Value Reference Range Interpretation Comments CREATININE URINE (BEAKER) (test 195.0 mg/dL code = 375) Reference Range: No NormalsPROTEIN, RANDOM [id number] 09:55:00 Test Item Value Reference Range Interpretation Comments PROTEIN, URINE (BEAKER) (test code = 18 mg/dL 0-14 H 1569) MICROALBUMIN, RANDOM [id number] 09:55:00 Test Item Value Reference Range Interpretation Comments MICROALBUMIN URINE (BEAKER) (test 1.5 mg/dL code = 1794) Reference Range: No NormalsRAD, CHEST, 2 [id number] 09:22:00Reason for Exam:->s/p lung transplantFINAL REPORT INDICATION: s/p lung transplant COMPARISON: February 05, 2018 TECHNIQUE: Frontal and lateral views of the chest. FINDINGS: Lungs and pleura: Clear lungs. Small posterior fusions bilaterally.Heart and mediastinum: Normal heart size. Stable surgical changes.Osseous structures: No acute abnormality.Additional findings: None. IMPRESSION: No acute intrathoracic abnormality. Signed: JR Rizzo Robert MDReport Verified Date/Time: 05/29/2018 09:22:59 Reading Location: [facility] Radiology Reading Room [id number] 09:10:00 Test Item Value Reference Range Interpretation Comments PROSTATE SPECIFIC ANTIGEN (BEAKER) 0.4 ng/mL 0.0-4.0 (test code = 844) MALES onlyHEPATITIS PANEL, [id number] 09:10:00 Test Item Value Reference Range Interpretation Comments HEPATITIS A IGM ANTIBODY (BEAKER) Nonreactive Nonreactive (test code = 498) HEPATITIS B CORE IGM ANTIBODY Nonreactive Nonreactive (BEAKER) (test code = 645) HEPATITIS C ANTIBODY (BEAKER) Nonreactive Nonreactive (test code = 367) HEPATITIS B SURFACE ANTIGEN (2) Nonreactive Nonreactive (BEAKER) (test code = 2585) MALES onlyVITAMIN D, [id number] 09:10:00 Test Item Value Reference Range Interpretation Comments VITAMIN D 25-OH (BEAKER) (test 26.8 ng/mL 6.6-49.9 code = 2764) Effective 04/10/2017: Reference Range ChangeNew: 6.6-49.9 ng/mL Previous: 13.0-47.8 ng/mLRecommended Vitamin D Target Range: 30.0-40.0 ng/mLMALES onlyHIV- 1 ANTIGEN WITH HIV-1/2 [id number] 09:10:00 Test Item Value Reference Range Interpretation Comments HIV-1 ANTIGEN WITH HIV 1\\T\\2 Nonreactive Nonreactive ANTIBODY (2) (BEAKER) (test code = 2586) MALES [id number] 08:48:00 Test Item Value Reference Range Interpretation Comments PHOSPHORUS (BEAKER) (test code = 3.2 mg/dL 2.3-4.7 604) COMPREHENSIVE METABOLIC [id number] 08:48:00 Test Item Value Reference Range Interpretation [...] 347) EGFR (BEAKER) (test 41 mL/min/1.73 ESTIMA ABDULLAHI GFR IS code = 1092) sq m NOT ACCURATE CREATININE CLEARANCE IN PREDICTING GLOMERULAR FILTRATION RATE . ESTIMATED GFR I S NOT APPLICABLE FOR DIALYSIS PATIEN TS. LIPID [id number] 08:48:00 Test Item Value Reference Range Interpretation [...] = 635) CBC W/PLT COUNT & AUTO [id number] 08:30:00 Test Item Value Reference Range Interpretation [...] (test code = 2801) AFB CULTURE + [id number] 17:58:00 Test Item Value Reference Range Interpretation Comments CULTURE (BEAKER) (test No acid-fast bacilli code = 1095) isolated in 42 days AFB SMEAR (BEAKER) No acid fast bacilli (test code = 994) seen BODY FLUID CULTURE + GRAM [id number] 18:20:00 Test Item Value Reference Range Interpretation Comments CULTURE (BEAKER) (test code No growth = 1095) GRAM STAIN RESULT (BEAKER) <1+ WBCs (test code = 1123) GRAM STAIN RESULT (BEAKER) No organisms seen (test code = 50199) CBC W/PLT COUNT & AUTO [id number] 11:48:00 Test Item Value Reference Range Interpretation [...] 3438) Received comment: User comments: Slide comments:TACROLIMUS [id number] 09:58:00 Test Item Value Reference Range Interpretation Comments TACROLIMUS BLOOD (BEAKER) (test 5.3 ng/mL 10.0-20.0 L code = 657) POCT-GLUCOSE [id number] 08:33:00 Test Item Value Reference Range Interpretation Comments POC-GLUCOSE METER 100 mg/dL 70-110 TESTED AT [facility] 6720 (BEAKER) (test code = PARESH [place] 1538) [address] [id number] 07:13:00 Test Item Value Reference Range Interpretation Comments MAGNESIUM (BEAKER) (test code = 1.6 mg/dL 1.6-2.6 627) COMPREHENSIVE METABOLIC [id number] 07:13:00 Test Item Value Reference Range Interpretation [...] 347) EGFR (BEAKER) (test 69 mL/min/1.73 ESTIMA ABDULLAHI GFR IS code = 1092) sq m NOT ACCURATE CREATININE CLEARANCE IN PREDICTING GLOMERULAR FILTRATION RATE . ESTIMATED GFR I S NOT APPLICABLE FOR DIALYSIS PATIEN TS. BODY FLUID CELL COUNT WITH [id number] 17:27:00 Test Item Value Reference Range Interpretation [...] Tube (test code = 2873) PROTEIN, BODY [id number] 17:03:00 Test Item Value Reference Range Interpretation Comments PROTEIN FLUID (BEAKER) (test code = 1.2 g/dL 579) Absence of reference range indicates that normals have not been defined.Assay performance has not been validated for this type of specimen.ascitesascites GLUCOSE, BODY [id number] 17:03:00 Test Item Value Reference Range Interpretation Comments GLUCOSE, BODY FLUID (BEAKER) (test 92 mg/dL code = 1528) Absence of reference range indicates that normals have not been defined.Assay performance has not been validated for this type of specimen.ascitesascites TACROLIMUS [id number] 15:07:00 Test Item Value Reference Range Interpretation Comments TACROLIMUS BLOOD (KATELYNN) (test 7.7 ng/mL 10.0-20.0 L code = 657) VITAMIN B12 AND [id number] 14:40:00 Test Item Value Reference Range Interpretation Comments VITAMIN B12 (BEAKER) (test code = 714 pg/mL 213-816 774) FOLATE (BEAKER) (test code = 362) 13.4 ng/mL >=7.0 IMMUNOGLOBULIN G (IGG)2018-02-05 14:19:00 Test Item Value Reference Range Interpretation Comments IMMUNOGLOBULIN G (IGG) (ANYIAKER) 133 mg/dL 540-1822 L (test code = 427) POCT-GLUCOSE [id number] 13:31:00 Test Item Value Reference Range Interpretation Comments POC-GLUCOSE METER 149 mg/dL 70-110 H TESTED AT [facility] 6720 (KATELYNN) (test code = PARESH Jose [facility] 1538) [address] U/S, [id number] 11:08:00Reason for exam:->ABDOMINAL PAINFINAL REPORT HISTORY : [...] skin and deep soft tissues. A 5 [place] multi-sidehole catheter was inserted and removed from the peritoneal space and approximately 3.1 liters of clear yellow fluid was aspirated from the abdomen. Specimens were collected for the lab. There were no immediate complications. Impression: Successful ultrasound guided paracentesis with aspiration of 3.1 liters of fluid. Signed: Javed Paez Verified Date/Time: 02/05/2018 11:08:13 Reading Location: [address] Ultrasound Reading Room Electronically signedby: JAVED PAEZ MD on 02/05/2018 11:08 AMCBC W/PLT COUNT & AUTO [id number] 09:16:00 Test Item Value Reference Range Interpretation [...] PERCENT (BEAKER) (test code = 2801) TROPONIN [id number] 09:11:00 Test Item Value Reference Range Interpretation [...] pg/mL 0-100 H (test code = 700) [id number] 09:04:00 Test Item Value Reference Range Interpretation Comments MAGNESIUM (BEAKER) (test code = 1.7 mg/dL 1.6-2.6 627) BASIC METABOLIC [id number] 09:04:00 Test Item Value Reference Range Interpretation [...] 697) EGFR (BEAKER) (test 64 mL/min/1.73 ESTIMA ABDULLAHI GFR IS code = 1092) sq m NOT ACCURATE CREATININE CLEARANCE IN PREDICTING GLOMERULAR FILTRATION RATE . ESTIMATED GFR I S NOT APPLICABLE FOR DIALYSIS PATIEN TS. HEPATIC FUNCTION [id number] 09:04:00 Test Item Value Reference Range Interpretation [...] (test code = 38 U/L 6-55 347) [id number] 09:04:00 Test Item Value Reference Range Interpretation Comments AMYLASE (BEAKER) (test code = 349) 79 U/L 25-125 [id number] 09:04:00 Test Item Value Reference Range Interpretation Comments LIPASE (BEAKER) (test code = 749) 36 U/L 8-78 [id number] 08:54:00 Test Item Value Reference Range Interpretation [...] mechanical heart valves.RAD, CHEST, 1 VIEW, NON [id number] 07:45:00Reason for exam:->chest painFINAL REPORT Chest one view AP 02/05/2018 7:45 AM CLINICAL INDICATION: chest pain COMPARISON: 01/13/2018 IMPRESSION: There are trace bilateral pleural effusions with adjacent basilar atelectasis. Cardiomediastinal contours are within normal limits. The central pulmonary vasculatureis not engorged. Sternotomy wires remain midline. Signed: Bryce Craven MDReport Verified Date/Time: 02/05/2018 07:45:26 Reading Location: [facility] C013V Neuro Reading Room FUNGUS CULTURE + [id number] 12:31:00 Test Item Value Reference Range Interpretation Comments CULTURE (BEAKER) (test No fungus isolated in code = 1095) 28 days FUNGUS SMEAR (BEAKER) No fungi seen (test code = 1406) VIRUS [id number] 12:15:00 Test Item Value Reference Range Interpretation Comments CULTURE (BEAKER) (test code No virus isolated = 1095) CMV PCR, [id number] 14:49:00 Test Item Value Reference Range Interpretation [...] and its performance characteristics determined by the [facility] Path ology Department, Section of Molecular Pathology. [...] ng/mL 10.0-20.0 L code = 657) POCT-GLUCOSE [id number] 11:51:00 Test Item Value Reference Range Interpretation Comments POC-GLUCOSE METER 121 mg/dL 70-110 H TESTED AT [facility] 6720 (BEAKER) (test code = PARESH A[place] 1538) [address] RAD, CHEST, 1 VIEW, NON [id number] 08:39:00Reason for exam:->Follow-up respiratory failureShould this be performed at the bedside?->YesFINAL REPORT Chest one view compared to January 07, 2018 Discussion: Moderately improved bilateral airspace opacities. Right PICC line in place. No gross effusion or pneumothorax. Signed: Denilson Callejas Verified Date/Time: 01/13/2018 08:39:15 Reading Location: [facility] Reading Room TIC FUNCTION [id number] 07:13:00 Test Item Value Reference Range Interpretation [...] = 55 U/L 6-55 347) BASIC METABOLIC [id number] 07:13:00 Test Item Value Reference Range Interpretation [...] 697) EGFR (BEAKER) (test 59 mL/min/1.73 ESTIMA ABDULLAHI GFR IS code = 1092) sq m NOT ACCURATE CREATININE CLEARANCE IN PREDICTING GLOMERULAR FILTRATION RATE . ESTIMATED GFR I S NOT APPLICABLE FOR DIALYSIS PATIEN TS. [id number] 06:52:00 Test Item Value Reference Range Interpretation [...] PERCENT (BEAKER) (test code = 2801) POCT-GLUCOSE [id number] 22:11:00 Test Item Value Reference Range Interpretation Comments POC-GLUCOSE METER 165 mg/dL 70-110 H TESTED AT [facility] 6720 (BEAKER) (test code = PARESH WH[place] 1538) [address] C. DIFFICILE [facility] [id number] 16:06:00 Test Item Value Reference Range Interpretation Comments CDT TOXIN (test code Negative Negative = [id number]) CDT GDH ANTIGEN (test Negative Negative No ind ication of code = 3818049977) Clostridi um difficile infection and n o colonization. Discontinue ent phyllis isolation and t herapy. Testing performed by [employer] Rapid Cassette Assay. For GDH, published sensitivity of the assay is 98.7% compared to cytotoxicity testing. For Toxin AB, published sensitivity is 87.8% and specificity 99.4% compared to cytotoxicity testing.Verification of kit performance was done by the [facility] Microbiology Lab prior to clinical use.TACROLIMUS [id number] 10:30:00 Test Item Value Reference Range Interpretation Comments TACROLIMUS BLOOD (BEAKER) (test 2.7 ng/mL 10.0-20.0 L code = 657) [id number] 07:37:00 Test Item Value Reference Range Interpretation Comments PHOSPHORUS (BEAKER) (test code = 4.1 mg/dL 2.3-4.7 604) BASIC METABOLIC [id number] 07:37:00 Test Item Value Reference Range Interpretation [...] 697) EGFR (BEAKER) (test 52 mL/min/1.73 ESTIMA ABDULLAHI GFR IS code = 1092) sq m NOT ACCURATE CREATININE CLEARANCE IN PREDICTING GLOMERULAR FILTRATION RATE . ESTIMATED GFR I S NOT APPLICABLE FOR DIALYSIS PATIEN TS. POCT-GLUCOSE [id number] 07:30:00 Test Item Value Reference Range Interpretation Comments POC-GLUCOSE METER 103 mg/dL 70-110 TESTED AT [facility] 6720 (BEAKER) (test code = PARESH [place] 1538) [address] CBC W/PLT COUNT & AUTO [id number] 07:16:00 Test Item Value Reference Range Interpretation [...] PERCENT (BEAKER) (test code = 2801) POCT-GLUCOSE [id number] 21:04:00 Test Item Value Reference Range Interpretation Comments POC-GLUCOSE METER 161 mg/dL 70-110 H TESTED AT [facility] 6720 (BEAKER) (test code = PARESH [place] 1538) [address] TACROLIMUS [id number] 10:37:00 Test Item Value Reference Range Interpretation Comments TACROLIMUS BLOOD (BEAKER) (test 3.4 ng/mL 10.0-20.0 L code = 657) [id number] 07:21:00 Test Item Value Reference Range Interpretation Comments PHOSPHORUS (BEAKER) (test code = 5.3 mg/dL 2.3-4.7 H 604) BASIC METABOLIC [id number] 07:21:00 Test Item Value Reference Range Interpretation [...] 697) EGFR (BEAKER) (test 40 mL/min/1.73 ESTIMA ABDULLAHI GFR IS code = 1092) sq m NOT ACCURATE CREATININE CLEARANCE IN PREDICTING GLOMERULAR FILTRATION RATE . ESTIMATED GFR I S NOT APPLICABLE FOR DIALYSIS PATIEN TS. CBC W/PLT COUNT & AUTO [id number] 07:03:00 Test Item Value Reference Range Interpretation [...] % 0-1 PERCENT (BEAKER) (test code = 6951) POCT-GLUCOSE [id number] 17:24:00 Test Item Value Reference Range Interpretation Comments POC-GLUCOSE METER 178 mg/dL 70-110 H TESTED AT [facility] 67 ([facility]) (test code = PARESH [place] 1538) [address] TACROLIMUS [id number] 12:24:00 Test Item Value Reference Range Interpretation Comments TACROLIMUS BLOOD (BEAKER) (test 4.3 ng/mL 10.0-20.0 L code = 657) POCT-GLUCOSE [id number] 09:17:00 Test Item Value Reference Range Interpretation Comments POC-GLUCOSE METER 162 mg/dL 70-110 H TESTED AT [facility] 67 (BEAKER) (test code = PARESH [place] 1538) [address] CBC W/PLT COUNT & AUTO [id number] 07:36:00 Test Item Value Reference Range Interpretation [...] (BEAKER) (test code = 2801) BASIC METABOLIC [id number] 06:41:00 Test Item Value Reference Range Interpretation [...] 697) EGFR (BEAKER) (test 32 mL/min/1.73 ESTIMA ABDULLAHI GFR IS code = 1092) sq m NOT ACCURATE CREATININE CLEARANCE IN PREDICTING GLOMERULAR FILTRATION RATE . ESTIMATED GFR I S NOT APPLICABLE FOR DIALYSIS PATIEN TS. [id number] 06:39:00 Test Item Value Reference Range Interpretation Comments PHOSPHORUS (BEAKER) (test code = 6.1 mg/dL 2.3-4.7 H 604) LEGIONELLA [id number] 04:55:00 Test Item Value Reference Range Interpretation Comments CULTURE ([facility]) No Legionella species (test code = 1095) isolated POCT-GLUCOSE [id number] 21:37:00 Test Item Value Reference Range Interpretation Comments POC-GLUCOSE METER 174 mg/dL 70-110 H [facility] [place] [address] [facility] (test code = [facility] 1538) [address] POCT-GLUCOSE [id number] 18:18:00 Test Item Value Reference Range Interpretation Comments POC-GLUCOSE METER 230 mg/dL 70-110 H TESTED AT [place] [address] ([facility]) (test code = [facility] 1538) [address] POCT-GLUCOSE [id number] 13:15:00 Test Item Value Reference Range Interpretation Comments POC-GLUCOSE METER 104 mg/dL 70-110 TESTED AT [place] [address] ([facility]) (test code = [facility] 1538) [address] TACROLIMUS [id number] 11:40:00 Test Item Value Reference Range Interpretation Comments TACROLIMUS BLOOD (BEAKER) (test 4.3 ng/mL 10.0-20.0 L code = 657) POCT-GLUCOSE [id number] 09:28:00 Test Item Value Reference Range Interpretation Comments POC-GLUCOSE METER 206 mg/dL 70-110 H TESTED AT [place] [address] ([facility]) (test code = [facility] 1538) [address] BASIC METABOLIC [id number] 07:44:00 Test Item Value Reference Range Interpretation [...] 697) EGFR (BEAKER) (test 27 mL/min/1.73 ESTIMA ABDULLAHI GFR IS code = 1092) sq m NOT ACCURATE CREATININE CLEARANCE IN PREDICTING GLOMERULAR FILTRATION RATE . ESTIMATED GFR I S NOT APPLICABLE FOR DIALYSIS PATIEN TS. CBC W/PLT COUNT & AUTO [id number] 06:46:00 Test Item Value Reference Range Interpretation [...] PERCENT (BEAKER) (test code = 2801) POCT-GLUCOSE [id number] 18:11:00 Test Item Value Reference Range Interpretation Comments POC-GLUCOSE METER 214 mg/dL 70-110 H TESTED AT [facility] 67 ([facility]) (test code = PARESH [place] 1538) [address] POCT-GLUCOSE [id number] 12:38:00 Test Item Value Reference Range Interpretation Comments POC-GLUCOSE METER 173 mg/dL 70-110 H TESTED AT [place] [address] ([facility]) (test code = PARESH [place] 1538) [address] TACROLIMUS [id number] 10:03:00 Test Item Value Reference Range Interpretation Comments TACROLIMUS BLOOD (BEAKER) (test 6.2 ng/mL 10.0-20.0 L code = 657) CBC W/PLT COUNT & AUTO [id number] 07:36:00 Test Item Value Reference Range Interpretation [...] Received comment: User comments: Slide comments:HEPATIC FUNCTION [id number] 06:16:00 Test Item Value Reference Range Interpretation [...] 84 U/L 6-55 H 347) BASIC METABOLIC [id number] 06:16:00 Test Item Value Reference Range Interpretation [...] 697) EGFR (BEAKER) (test 24 mL/min/1.73 ESTIMA ABDULLAHI GFR IS code = 1092) sq m NOT ACCURATE CREATININE CLEARANCE IN PREDICTING GLOMERULAR FILTRATION RATE . ESTIMATED GFR I S NOT APPLICABLE FOR DIALYSIS PATIEN TS. POCT-GLUCOSE [id number] 00:25:00 Test Item Value Reference Range Interpretation Comments POC-GLUCOSE METER 149 mg/dL 70-110 H TESTED AT [facility] 6720 (BEAKER) (test code = JACQUELINEYULISA [place] 1538) [address] POCT-GLUCOSE [id number] 18:42:00 Test Item Value Reference Range Interpretation Comments POC-GLUCOSE METER 204 mg/dL 70-110 H TESTED AT [facility] 6720 (BEAKER) (test code = PARESH Garcia [place] 1538) [address] POCT-GLUCOSE [id number] 11:49:00 Test Item Value Reference Range Interpretation Comments POC-GLUCOSE METER 104 mg/dL 70-110 TESTED AT [facility] 6720 (BEAKER) (test code = PARESH Garcia [place] 1538) [address] TACROLIMUS [id number] 09:02:00 Test Item Value Reference Range Interpretation Comments TACROLIMUS BLOOD (BEAKER) (test 7.4 ng/mL 10.0-20.0 L code = 657) RAD, CHEST, 1 VIEW, NON [id number] 08:16:00Reason for exam:->respiratory failureShould this be performed at the bedside?->YesFINAL REPORT Chest one view compared to January 06 Discussion: Bilateral airspace pulmonary opacities are similar. Lateral lines in place lower SVC level. No gross effusion or pneumothorax. Signed: Denilson Callejas Verified Date/Time: 01/07/2018 08:16:36 Reading Location: [facility] Radiology Reading Room BASIC METABOLIC [id number] 05:23:00 Test Item Value Reference Range Interpretation [...] 697) EGFR (BEAKER) (test 28 mL/min/1.73 ESTIMA ABDULLAHI GFR IS code = 1092) sq m NOT ACCURATE CREATININE CLEARANCE IN PREDICTING GLOMERULAR FILTRATION RATE . ESTIMATED GFR I S NOT APPLICABLE FOR DIALYSIS PATIEN TS. CBC W/PLT COUNT & AUTO [id number] 05:21:00 Test Item Value Reference Range Interpretation [...] (BEAKER) (test code = 2801) HEPATIC FUNCTION [id number] 05:21:00 Test Item Value Reference Range Interpretation [...] 346) AST (SGOT) (BEAKER) (test code = 64 U/L 5-34 H 353) ALT (SGPT) (BEAKER) (test code = 91 U/L 6-55 H 347) POCT-GLUCOSE [id number] 23:36:00 Test Item Value Reference Range Interpretation Comments POC-GLUCOSE METER 86 mg/dL 70-110 TESTED AT [place] [address] ([facility]) (test code = [facility] [address] 1538) POCT-GLUCOSE [id number] 22:44:00 Test Item Value Reference Range Interpretation Comments POC-GLUCOSE METER 138 mg/dL 70-110 H TESTED AT [place] [address] ([facility]) (test code = [facility] 1538) [address] HEPATOBILIARY [id number] 16:02:00Per REPORT PROCEDURE: HEPATOBILIARY SCAN CPT CODE: 05894 INDICATION: Right upper quadrant pain, fever, leukocytosis [...] included ultrasound abdomen 12/27/2017. Signed: Kasia Aiken Verified Date/Time: 01/06/2018 16:02:34 Reading Location: [place] [id number] Reading Room El ectronically signed by: KASIA AIKEN MD on 01/06/2018 04:02 PMTACROLIMUS [id number] 10:39:00 Test Item Value Reference Range Interpretation Comments TACROLIMUS BLOOD (BEAKER) (test 9.1 ng/mL 10.0-20.0 L code = 657) RAD, CHEST, 1 VIEW, NON [id number] 03:58:00Reason for exam:->respiratory failureShould this be performed [...] no significant interval change. Signed: Osiris Reagan Verified Date/Time: 01/06/2018 03:58:03 Reading Location: [address] Reading Room CBC W/PLT COUNT & AUTO [id number] 03:53:00 Test Item Value Reference Range Interpretation [...] 0-1 H PERCENT (BEAKER) (test code = 2808) BASIC METABOLIC [id number] 03:51:00 Test Item Value Reference Range Interpretation [...] 697) EGFR (BEAKER) (test 38 mL/min/1.73 ESTIMA ABDULLAHI GFR IS code = 1092) sq m NOT ACCURATE CREATININE CLEARANCE IN PREDICTING GLOMERULAR FILTRATION RATE . ESTIMATED GFR I S NOT APPLICABLE FOR DIALYSIS PATIEN TS. [id number] 03:51:00 Test Item Value Reference Range Interpretation Comments MAGNESIUM (BEAKER) (test code = 2.1 mg/dL 1.6-2.6 627) [id number] 03:51:00 Test Item Value Reference Range Interpretation Comments PHOSPHORUS (BEAKER) (test code = 3.9 mg/dL 2.3-4.7 604) POCT-GLUCOSE [id number] 00:02:00 Test Item Value Reference Range Interpretation Comments POC-GLUCOSE METER 110 mg/dL 70-110 TESTED AT [facility] 6720 (BEAKER) (test code = PARESH Garcia [place] 1538) [address] BASIC METABOLIC [id number] 18:14:00 Test Item Value Reference Range Interpretation [...] 697) EGFR (BEAKER) (test 55 mL/min/1.73 ESTIMA ABDULLAHI GFR IS code = 1092) sq m NOT ACCURATE CREATININE CLEARANCE IN PREDICTING GLOMERULAR FILTRATION RATE . ESTIMATED GFR I S NOT APPLICABLE FOR DIALYSIS PATIEN TS. POCT-GLUCOSE [id number] 17:56:00 Test Item Value Reference Range Interpretation Comments POC-GLUCOSE METER 143 mg/dL 70-110 H TEST[facility] AT [place] [address] [facility] (test code = [facility] 1538) [address] [id number] 16:39:00 Test Item Value Reference Range Interpretation Comments POTASSIUM (BEAKER) (test code = 4.7 meq/L 3.5-5.1 379) CALCIUM, [id number] 16:33:00 Test Item Value Reference Range Interpretation Comments CALCIUM IONIZED (BEAKER) (test 1.11 mmol/L 1.12-1.27 L code = 698) PH, BLOOD (BEAKER) (test code = 7.53 1810) [id number] 12:31:00 Test Item Value Reference Range Interpretation Comments POTASSIUM (BEAKER) (test code = 4.2 meq/L 3.5-5.1 379) POCT-GLUCOSE [id number] 12:06:00 Test Item Value Reference Range Interpretation Comments POC-GLUCOSE METER 137 mg/dL 70-110 H TESTED AT [place] [address] ([facility]) (test code = [facility] 1538) [address] [id number] 10:53:00 Test Item Value Reference Range Interpretation Comments AMYLASE (BEAKER) (test code = 349) 53 U/L 25-125 Specimen slightly [id number] 10:53:00 Test Item Value Reference Range Interpretation Comments LIPASE (BEAKER) (test code = 749) 34 U/L 8-78 Specimen slightly ictericTACROLIMUS [id number] 10:02:00 Test Item Value Reference Range Interpretation Comments TACROLIMUS BLOOD (BEAKER) (test 8.9 ng/mL 10.0-20.0 L code = 657) [id number] 08:58:00 Test Item Value Reference Range Interpretation Comments PHOSPHORUS (BEAKER) (test code = 2.5 mg/dL 2.3-4.7 604) [id number] 08:58:00 Test Item Value Reference Range Interpretation Comments MAGNESIUM (BEAKER) (test code = 1.9 mg/dL 1.6-2.6 627) BASIC METABOLIC [id number] 08:58:00 Test Item Value Reference Range Interpretation [...] 697) EGFR (BEAKER) (test 53 mL/min/1.73 ESTIMA ABDULLAHI GFR IS code = 1092) sq m NOT ACCURATE CREATININE CLEARANCE IN PREDICTING GLOMERULAR FILTRATION RATE . ESTIMATED GFR I S NOT APPLICABLE FOR DIALYSIS PATIEN TS. CALCIUM, [id number] 08:38:00 Test Item Value Reference Range Interpretation Comments CALCIUM IONIZED (BEAKER) (test 1.07 mmol/L 1.12-1.27 L code = 698) PH, BLOOD (BEAKER) (test code = 7.51 1810) RAD, CHEST, 1 VIEW, NON [id number] 06:36:00Reason for exam:->respiratory failureShould this be performed [...] MDReport Verified Date/Time: 01/05/2018 06:36:45 Reading Location: [facility] Transitional Reading Room BASIC METABOLIC [id number] 06:33:00 Test Item Value Reference Range Interpretation [...] 697) EGFR (BEAKER) (test 56 mL/min/1.73 ESTIMA ABDULLAHI GFR IS code = 1092) sq m NOT ACCURATE CREATININE CLEARANCE IN PREDICTING GLOMERULAR FILTRATION RATE . ESTIMATED GFR I S NOT APPLICABLE FOR DIALYSIS PATIEN TS. Specimen slightly ictericHEPATIC FUNCTION [id number] 06:33:00 Test Item Value Reference Range Interpretation [...] Specimen slightly ictericCBC W/PLT COUNT & AUTO [id number] 06:07:00 Test Item Value Reference Range Interpretation [...] H PERCENT (BEAKER) (test code = 2801) [id number] 00:54:00 Test Item Value Reference Range Interpretation Comments POTASSIUM (BEAKER) (test code = 4.0 meq/L 3.5-5.1 379) CALCIUM, [id number] 00:39:00 Test Item Value Reference Range Interpretation Comments CALCIUM IONIZED (BEAKER) (test 1.09 mmol/L 1.12-1.27 L code = 698) PH, BLOOD (BEAKER) (test code = 7.49 1810) POCT-GLUCOSE [id number] 00:12:00 Test Item Value Reference Range Interpretation Comments POC-GLUCOSE METER 96 mg/dL 70-110 TESTED AT [facility] 6720 (BEAKER) (test code = [place] [address] 1538) [id number] 20:37:00 Test Item Value Reference Range Interpretation Comments POTASSIUM (BEAKER) (test code = 4.3 meq/L 3.5-5.1 379) [id number] 20:37:00 Test Item Value Reference Range Interpretation Comments MAGNESIUM (BEAKER) (test code = 2.0 mg/dL 1.6-2.6 627) [id number] 20:37:00 Test Item Value Reference Range Interpretation Comments PHOSPHORUS (BEAKER) (test code = 2.1 mg/dL 2.3-4.7 L 604) [id number] 17:29:00 Test Item Value Reference Range Interpretation Comments POTASSIUM (BEAKER) (test code = 4.6 meq/L 3.5-5.1 379) BASIC METABOLIC [id number] 17:29:00 Test Item Value Reference Range Interpretation [...] 697) EGFR (BEAKER) (test 52 mL/min/1.73 ESTIMA ABDULLAHI GFR IS code = 1092) sq m NOT ACCURATE CREATININE CLEARANCE IN PREDICTING GLOMERULAR FILTRATION RATE . ESTIMATED GFR I S NOT APPLICABLE FOR DIALYSIS PATIEN TS. Specimen slightly ictericCALCIUM, [id number] 17:06:00 Test Item Value Reference Range Interpretation Comments CALCIUM IONIZED (BEAKER) (test 1.09 mmol/L 1.12-1.27 L code = 698) PH, BLOOD (BEAKER) (test code = 7.49 1810) TACROLIMUS [id number] 14:39:00 Test Item Value Reference Range Interpretation Comments TACROLIMUS BLOOD (BEAKER) (test 9.5 ng/mL 10.0-20.0 L code = 657) [id number] 13:49:00 Test Item Value Reference Range Interpretation Comments POTASSIUM (BEAKER) (test code = 4.4 meq/L 3.5-5.1 379) POCT-GLUCOSE [id number] 12:21:00 Test Item Value Reference Range Interpretation Comments POC-GLUCOSE METER 182 mg/dL 70-110 H TESTED AT [facility] 6720 (BEAKER) (test code = PARESH [place] 1538) [address] [id number] 10:13:00 Test Item Value Reference Range Interpretation Comments MAGNESIUM (BEAKER) (test code = 2.3 mg/dL 1.6-2.6 627) BASIC METABOLIC [id number] 10:13:00 Test Item Value Reference Range Interpretation [...] 697) EGFR (BEAKER) (test 53 mL/min/1.73 ESTIMA ABDULLAHI GFR IS code = 1092) sq m NOT ACCURATE CREATININE CLEARANCE IN PREDICTING GLOMERULAR FILTRATION RATE . ESTIMATED GFR I S NOT APPLICABLE FOR DIALYSIS PATIEN TS. Specimen slightly ictericRAD, CHEST, 1 VIEW, NON [id number] 09:57:00Reason for exam:->respiratory failureShould this be performed [...] MDReport Verified Date/Time: 01/04/2018 09:57:17 Reading Location: [address] [place] Body Reading Room CALCIUM, [id number] 09:33:00 Test Item Value Reference Range Interpretation Comments CALCIUM IONIZED (BEAKER) (test 1.12 mmol/L 1.12-1.27 code = 698) PH, BLOOD (BEAKER) (test code = 7.45 1810) Check serum Ionized Calcium level after 4 hours after IV Calcium replacement. [id number] 06:16:00 Test Item Value Reference Range Interpretation Comments PHOSPHORUS (BEAKER) (test code = 3.2 mg/dL 2.3-4.7 604) [id number] 06:16:00 Test Item Value Reference Range Interpretation Comments MAGNESIUM (BEAKER) (test code = 1.9 mg/dL 1.6-2.6 627) BASIC METABOLIC [id number] 06:16:00 Test Item Value Reference Range Interpretation [...] 697) EGFR (BEAKER) (test 52 mL/min/1.73 ESTIMA ABDULLAHI GFR IS code = 1092) sq m NOT ACCURATE CREATININE CLEARANCE IN PREDICTING GLOMERULAR FILTRATION RATE . ESTIMATED GFR I S NOT APPLICABLE FOR DIALYSIS PATIEN TS. Specimen slightly ictericCBC W/PLT COUNT & AUTO [id number] 05:51:00 Test Item Value Reference Range Interpretation [...] (BEAKER) (test code = 2801) BLOOD GAS, [id number] 05:27:00 Test Item Value Reference Range Interpretation [...] (test code = 1819) 40.0 % CALCIUM, [id number] 05:27:00 Test Item Value Reference Range Interpretation Comments CALCIUM IONIZED (BEAKER) (test 1.14 mmol/L 1.12-1.27 code = 698) PH, BLOOD (BEAKER) (test code = 7.42 1810) [id number] 00:40:00 Test Item Value Reference Range Interpretation Comments POTASSIUM (BEAKER) (test code = 4.2 meq/L 3.5-5.1 379) CALCIUM, [id number] 00:26:00 Test Item Value Reference Range Interpretation Comments CALCIUM IONIZED (BEAKER) (test 1.15 mmol/L 1.12-1.27 code = 698) PH, BLOOD (BEAKER) (test code = 7.42 1810) POCT-GLUCOSE [id number] 00:09:00 Test Item Value Reference Range Interpretation Comments POC-GLUCOSE METER 224 mg/dL 70-110 H TESTED AT [facility] 6720 (BEAKER) (test code = PARESH [place] 1538) [address] [id number] 21:19:00 Test Item Value Reference Range Interpretation Comments POTASSIUM (BEAKER) (test code = 4.6 meq/L 3.5-5.1 379) [id number] 21:19:00 Test Item Value Reference Range Interpretation Comments MAGNESIUM (BEAKER) (test code = 1.9 mg/dL 1.6-2.6 627) [id number] 21:19:00 Test Item Value Reference Range Interpretation Comments PHOSPHORUS (BEAKER) (test code = 2.7 mg/dL 2.3-4.7 604) BASIC METABOLIC [id number] 19:10:00 Test Item Value Reference Range Interpretation [...] 697) EGFR (BEAKER) (test 50 mL/min/1.73 ESTIMA ABDULLAHI GFR IS code = 1092) sq m NOT ACCURATE CREATININE CLEARANCE IN PREDICTING GLOMERULAR FILTRATION RATE . ESTIMATED GFR I S NOT APPLICABLE FOR DIALYSIS PATIEN TS. POCT-GLUCOSE [id number] 18:48:00 Test Item Value Reference Range Interpretation Comments POC-GLUCOSE METER 176 mg/dL 70-110 H [facility] [place] [address] [facility] (test code = [facility] 1538) [address] [id number] 16:50:00 Test Item Value Reference Range Interpretation Comments POTASSIUM (BEAKER) (test code = 4.9 meq/L 3.5-5.1 379) CALCIUM, [id number] 16:31:00 Test Item Value Reference Range Interpretation Comments CALCIUM IONIZED (BEAKER) (test 1.12 mmol/L 1.12-1.27 code = 698) PH, BLOOD (BEAKER) (test code = 7.42 1810) POCT-GLUCOSE [id number] 13:33:00 Test Item Value Reference Range Interpretation Comments POC-GLUCOSE METER 259 mg/dL 70-110 H TESTED AT [facility] 6720 [facility] (test code = [facility] 1538) [address] [id number] 13:26:00 Test Item Value Reference Range Interpretation Comments POTASSIUM (BEAKER) (test code = 4.5 meq/L 3.5-5.1 379) [id number] 10:47:00 Test Item Value Reference Range Interpretation Comments CORTISOL, TOTAL (BEAKER) (test code 8.7 ug/dL 3.7-19.4 = 2755) It is important that this lab be drawn as close to 8 am as possible. Thanks! [id number] 09:00:00 Test Item Value Reference Range Interpretation Comments PHOSPHORUS (BEAKER) (test code = 2.4 mg/dL 2.3-4.7 604) [id number] 09:00:00 Test Item Value Reference Range Interpretation Comments MAGNESIUM (BEAKER) (test code = 2.1 mg/dL 1.6-2.6 627) BASIC METABOLIC [id number] 09:00:00 Test Item Value Reference Range Interpretation [...] 697) EGFR (BEAKER) (test 46 mL/min/1.73 ESTIMA ABDULLAHI GFR IS code = 1092) sq m NOT ACCURATE CREATININE CLEARANCE IN PREDICTING GLOMERULAR FILTRATION RATE . ESTIMATED GFR I S NOT APPLICABLE FOR DIALYSIS PATIEN TS. Specimen slightly ictericTACROLIMUS [id number] 08:45:00 Test Item Value Reference Range Interpretation Comments TACROLIMUS BLOOD (BEAKER) (test 8.1 ng/mL 10.0-20.0 L code = 657) CBC W/PLT COUNT & AUTO [id number] 08:28:00 Test Item Value Reference Range Interpretation [...] 3438) Received comment: User comments: Slide comments:CALCIUM, [id number] 08:15:00 Test Item Value Reference Range Interpretation Comments CALCIUM IONIZED (BEAKER) (test 1.03 mmol/L 1.12-1.27 L code = 698) PH, BLOOD (BEAKER) (test code = 7.40 1810) RAD, CHEST, 1 VIEW, NON [id number] 07:27:00Reason for exam:->respiratory failureShould this be performed at the bedside?->YesFINAL REPORT Chest one view. Clinical history: respiratory failure Comparison: 01/02/2018 Discussion: A frontal chest is provided. Cardiomediastinal contours are unchanged. Lines and tubes are in stable position. Extensive bilateral interstitial and airspace opacities appear unchanged. Small right pleural effusion is suspected. No pneumothorax. Signed: Judy Perry Verified Date/Time: 01/03/2018 07:27:35 Reading Location: [facility] Radiology Reading Room POCT-GLUCOSE [id number] 06:51:00 Test Item Value Reference Range Interpretation Comments POC-GLUCOSE METER 230 mg/dL 70-110 H TESTED AT [facility] 6720 (BEAKER) (test code = PARESH Garcia [place] 1538) [address] [id number] 04:24:00 Test Item Value Reference Range Interpretation Comments MAGNESIUM (BEAKER) (test code = 2.1 mg/dL 1.6-2.6 627) BASIC METABOLIC [id number] 04:24:00 Test Item Value Reference Range Interpretation [...] 697) EGFR (BEAKER) (test 44 mL/min/1.73 ESTIMA ABDULLAHI GFR IS code = 1092) sq m NOT ACCURATE CREATININE CLEARANCE IN PREDICTING GLOMERULAR FILTRATION RATE . ESTIMATED GFR I S NOT APPLICABLE FOR DIALYSIS PATIEN TS. Specimen slightly ictericCALCIUM, [id number] 04:07:00 Test Item Value Reference Range Interpretation Comments CALCIUM IONIZED (BEAKER) (test 1.12 mmol/L 1.12-1.27 code = 698) PH, BLOOD (BEAKER) (test code = 7.39 1810) BLOOD GAS, [id number] 04:07:00 Test Item Value Reference Range Interpretation [...] (BEAKER) (test code = 1819) 40.0 % [id number] 01:24:00 Test Item Value Reference Range Interpretation Comments POTASSIUM (BEAKER) (test code = 4.0 meq/L 3.5-5.1 379) CALCIUM, [id number] 01:04:00 Test Item Value Reference Range Interpretation Comments CALCIUM IONIZED (BEAKER) (test 1.09 mmol/L 1.12-1.27 L code = 698) PH, BLOOD (BEAKER) (test code = 7.36 1810) POCT-GLUCOSE [id number] 00:16:00 Test Item Value Reference Range Interpretation Comments POC-GLUCOSE METER 227 mg/dL 70-110 H TESTED AT [facility] 6720 (BEAKER) (test code = PARESH Garcia [place] 1538) [address] [id number] 20:37:00 Test Item Value Reference Range Interpretation Comments POTASSIUM (BEAKER) (test code = 4.4 meq/L 3.5-5.1 379) [id number] 20:37:00 Test Item Value Reference Range Interpretation Comments MAGNESIUM (BEAKER) (test code = 1.9 mg/dL 1.6-2.6 627) [id number] 20:37:00 Test Item Value Reference Range Interpretation Comments PHOSPHORUS (BEAKER) (test code = 1.8 mg/dL 2.3-4.7 L 604) BASIC METABOLIC [id number] 18:56:00 Test Item Value Reference Range Interpretation [...] 697) EGFR (BEAKER) (test 44 mL/min/1.73 ESTIMA ABDULLAHI GFR IS code = 1092) sq m NOT ACCURATE CREATININE CLEARANCE IN PREDICTING GLOMERULAR FILTRATION RATE . ESTIMATED GFR I S NOT APPLICABLE FOR DIALYSIS PATIEN TS. Specimen slightly ictericPOCT-GLUCOSE [id number] 18:20:00 Test Item Value Reference Range Interpretation Comments POC-GLUCOSE METER 224 mg/dL 70-110 H TESTED AT [place] [address] ([facility]) (test code = [facility] 1538) [address] [id number] 17:48:00 Test Item Value Reference Range Interpretation Comments POTASSIUM (BEAKER) 4.7 meq/L 3.5-5.1 Specimen slightly (test code = 379) hemolyzed CALCIUM, [id number] 17:35:00 Test Item Value Reference Range Interpretation Comments CALCIUM IONIZED (BEAKER) (test 1.12 mmol/L 1.12-1.27 code = 698) PH, BLOOD (AKER) (test code = 7.41 1810) PLATELET [id number] 17:35:00 Test Item Value Reference Range Interpretation Comments PLATELET COUNT (BEAKER) (test code 31 K/CU MM 150-450 L = 756) POCT-GLUCOSE [id number] 12:15:00 Test Item Value Reference Range Interpretation Comments POC-GLUCOSE METER 181 mg/dL 70-110 H TESTED AT [place] [address] ([facility]) (test code = [facility] 1538) [address] [id number] 10:15:00 Test Item Value Reference Range Interpretation Comments POTASSIUM (BEAKER) (test code = 4.4 meq/L 3.5-5.1 379) [id number] 10:15:00 Test Item Value Reference Range Interpretation Comments MAGNESIUM (BEAKER) (test code = 2.3 mg/dL 1.6-2.6 627) [id number] 10:15:00 Test Item Value Reference Range Interpretation Comments PHOSPHORUS (BEAKER) (test code = 2.2 mg/dL 2.3-4.7 L 604) BASIC METABOLIC [id number] 10:15:00 Test Item Value Reference Range Interpretation [...] 697) EGFR (BEAKER) (test 47 mL/min/1.73 ESTIMA ABDULLAHI GFR IS code = 1092) sq m NOT ACCURATE CREATININE CLEARANCE IN PREDICTING GLOMERULAR FILTRATION RATE . ESTIMATED GFR I S NOT APPLICABLE FOR DIALYSIS PATIEN TS. Specimen slightly ictericTACROLIMUS [id number] 09:21:00 Test Item Value Reference Range Interpretation Comments TACROLIMUS BLOOD (BEAKER) (test 7.8 ng/mL 10.0-20.0 L code = 657) CALCIUM, [id number] 09:15:00 Test Item Value Reference Range Interpretation Comments CALCIUM IONIZED (BEAKER) (test 1.15 mmol/L 1.12-1.27 code = 698) PH, BLOOD (BEAKER) (test code = 7.42 1810) RAD, CHEST, 1 VIEW, NON [id number] 09:14:00Reason for exam:->respiratory failureShould this be performed [...] MDReport Verified Date/Time: 01/02/2018 09:14:20 Reading Location: [facility] Radiology Reading Room BLOOD GAS, [id number] 05:19:00 Test Item Value Reference Range Interpretation [...] 40.0 % CBC W/PLT COUNT & AUTO [id number] 05:04:00 Test Item Value Reference Range Interpretation [...] (BEAKER) (test code = 2801) BASIC METABOLIC [id number] 05:04:00 Test Item Value Reference Range Interpretation [...] 697) EGFR (BEAKER) (test 47 mL/min/1.73 ESTIMA ABDULLAHI GFR IS code = 1092) sq m NOT ACCURATE CREATININE CLEARANCE IN PREDICTING GLOMERULAR FILTRATION RATE . ESTIMATED GFR I S NOT APPLICABLE FOR DIALYSIS PATIEN TS. Specimen slightly ictericCALCIUM, [id number] 04:48:00 Test Item Value Reference Range Interpretation Comments CALCIUM IONIZED (BEAKER) (test 1.10 mmol/L 1.12-1.27 L code = 698) PH, BLOOD (BEAKER) (test code = 7.39 1810) [id number] 01:06:00 Test Item Value Reference Range Interpretation Comments POTASSIUM (BEAKER) (test code = 4.2 meq/L 3.5-5.1 379) CALCIUM, [id number] 00:53:00 Test Item Value Reference Range Interpretation Comments CALCIUM IONIZED (BEAKER) (test 1.17 mmol/L 1.12-1.27 code = 698) PH, BLOOD (BEAKER) (test code = 7.36 1810) POCT-GLUCOSE [id number] 00:37:00 Test Item Value Reference Range Interpretation Comments POC-GLUCOSE METER 233 mg/dL 70-110 H TESTED AT [facility] 6720 (BEAKER) (test code = [facility] [place] 1538) [address] [id number] 21:09:00 Test Item Value Reference Range Interpretation Comments POTASSIUM (BEAKER) (test code = 4.2 meq/L 3.5-5.1 379) [id number] 21:09:00 Test Item Value Reference Range Interpretation Comments MAGNESIUM (BEAKER) (test code = 2.1 mg/dL 1.6-2.6 627) [id number] 21:09:00 Test Item Value Reference Range Interpretation Comments PHOSPHORUS (BEAKER) (test code = 2.3 mg/dL 2.3-4.7 604) POCT-GLUCOSE [id number] 18:00:00 Test Item Value Reference Range Interpretation Comments POC-GLUCOSE METER 262 mg/dL 70-110 H TESTED AT [facility] 6720 (BEAKER) (test code = [facility] [place] 1538) [id number] BASIC METABOLIC [id number] 17:51:00 Test Item Value Reference Range Interpretation [...] 697) EGFR (BEAKER) (test 39 mL/min/1.73 ESTIMA ABDULLAHI GFR IS code = 1092) sq m NOT ACCURATE CREATININE CLEARANCE IN PREDICTING GLOMERULAR FILTRATION RATE . ESTIMATED GFR I S NOT APPLICABLE FOR DIALYSIS PATIEN TS. Specimen slightly ictericVANCOMYCIN LEVEL, [id number] 17:51:00 Test Item Value Reference Range Interpretation Comments VANCOMYCIN TROUGH (BEAKER) (test 11.6 ug/mL 10.0-20.0 code = 522) CALCIUM, [id number] 17:26:00 Test Item Value Reference Range Interpretation Comments CALCIUM IONIZED (BEAKER) (test 1.09 mmol/L 1.12-1.27 L code = 698) PH, BLOOD (BEAKER) (test code = 7.38 1810) [id number] 14:04:00 Test Item Value Reference Range Interpretation Comments POTASSIUM (BEAKER) (test code = 4.0 meq/L 3.5-5.1 379) BRONCHIAL CULTURE + GRAM [id number] 13:45:00 Test Item Value Reference Range Interpretation Comments CULTURE (BEAKER) (test code No growth = 1095) GRAM STAIN RESULT (BEAKER) 1+ WBCs (test code = 1123) GRAM STAIN RESULT (BEAKER) No organisms seen (test code = 68512) POCT-GLUCOSE [id number] 13:12:00 Test Item Value Reference Range Interpretation Comments POC-GLUCOSE METER 210 mg/dL 70-110 H TESTED AT [facility] 6720 (BEAKER) (test code = [place] 1538) [id number] BLOOD GAS, [id number] 11:50:00 Test Item Value Reference Range Interpretation [...] (BEAKER) (test code = 1819) 40.0 % [id number] 09:26:00 Test Item Value Reference Range Interpretation Comments POTASSIUM (BEAKER) (test code = 4.3 meq/L 3.5-5.1 379) [id number] 09:26:00 Test Item Value Reference Range Interpretation Comments MAGNESIUM (BEAKER) (test code = 2.1 mg/dL 1.6-2.6 627) [id number] 09:26:00 Test Item Value Reference Range Interpretation Comments PHOSPHORUS (BEAKER) (test code = 3.0 mg/dL 2.3-4.7 604) TACROLIMUS [id number] 09:06:00 Test Item Value Reference Range Interpretation Comments TACROLIMUS BLOOD (BEAKER) (test 7.8 ng/mL 10.0-20.0 L code = 657) POCT-GLUCOSE [id number] 08:39:00 Test Item Value Reference Range Interpretation Comments POC-GLUCOSE METER 255 mg/dL 70-110 H TESTED AT [facility] 6720 (BEAKER) (test code = PARESH Garcia [place] 1538) [address] CALCIUM, [id number] 08:34:00 Test Item Value Reference Range Interpretation Comments CALCIUM IONIZED (BEAKER) (test 1.14 mmol/L 1.12-1.27 code = 698) PH, BLOOD (BEAKER) (test code = 7.39 1810) CBC W/PLT COUNT & AUTO [id number] 07:35:00 Test Item Value Reference Range Interpretation [...] Received comment: User comments: Slide comments:BLOOD GAS, [id number] 06:11:00 Test Item Value Reference Range Interpretation [...] (test code = 1819) 40.0 % BLOOD [id number] 06:00:00 Test Item Value Reference Range Interpretation Comments CULTURE (BEAKER) (test No growth in 5 days code = 1095) BLOOD [id number] 06:00:00 Test Item Value Reference Range Interpretation Comments CULTURE (BEAKER) (test No growth in 5 days code = 1095) RAD, CHEST, 1 VIEW, NON [id number] 05:37:00Reason for exam:->shortness of breathShould this be performed at the bedside?->YesFINAL REPORT Comparison exam: 12/31/2017 Diffuse bilateral pulmonary opacities, unchanged. Blunting of the right costophrenic angle. Stable cardiomediastinal contours. Appropriate position of the support hardware. Signed: Mio [place] Verified Date/Time: 01/01/2018 05:37:06 Reading Location: [facility] C013T Transitional Reading Room BASIC METABOLIC [id number] 05:06:00 Test Item Value Reference Range Interpretation [...] 697) EGFR (BEAKER) (test 34 mL/min/1.73 ESTIMA ABDULLAHI GFR IS code = 1092) sq m NOT ACCURATE CREATININE CLEARANCE IN PREDICTING GLOMERULAR FILTRATION RATE . ESTIMATED GFR I S NOT APPLICABLE FOR DIALYSIS PATIEN TS. Specimen slightly [id number] 01:21:00 Test Item Value Reference Range Interpretation Comments POTASSIUM (BEAKER) (test code = 4.3 meq/L 3.5-5.1 379) CRYPTOCOCCAL [id number] 01:09:00 Test Item Value Reference Range Interpretation Comments CRYPTOCOCCAL ANTIGEN, SERUM Negative Negative, Interference (BEAKER) (test code = 1828) CALCIUM, [id number] 00:26:00 Test Item Value Reference Range Interpretation Comments CALCIUM IONIZED (BEAKER) (test 1.09 mmol/L 1.12-1.27 L code = 698) PH, BLOOD (BEAKER) (test code = 7.38 1810) POCT-GLUCOSE [id number] 00:02:00 Test Item Value Reference Range Interpretation Comments POC-GLUCOSE METER 165 mg/dL 70-110 H TESTED AT [facility] 6720 (BEAKER) (test code = PARESH [place] 1538) [address] [id number] 21:18:00 Test Item Value Reference Range Interpretation Comments POTASSIUM (BEAKER) (test code = 4.6 meq/L 3.5-5.1 379) [id number] 21:18:00 Test Item Value Reference Range Interpretation Comments MAGNESIUM (BEAKER) (test code = 2.1 mg/dL 1.6-2.6 627) [id number] 21:18:00 Test Item Value Reference Range Interpretation Comments PHOSPHORUS (BEAKER) (test code = 4.2 mg/dL 2.3-4.7 604) POCT-GLUCOSE [id number] 18:03:00 Test Item Value Reference Range Interpretation Comments POC-GLUCOSE METER 142 mg/dL 70-110 H TESTED AT [facility] 6720 (BEAKER) (test code = PARESH [place] 1538) [address] BLOOD GAS, [id number] 17:55:00 Test Item Value Reference Range Interpretation [...] (BEAKER) (test code = 1819) 40.0 % [id number] 17:29:00 Test Item Value Reference Range Interpretation Comments POTASSIUM (BEAKER) (test code = 4.9 meq/L 3.5-5.1 379) CALCIUM, [id number] 16:38:00 Test Item Value Reference Range Interpretation Comments CALCIUM IONIZED (BEAKER) (test 1.05 mmol/L 1.12-1.27 L code = 698) PH, BLOOD (BEAKER) (test code = 7.37 1810) [id number] 14:13:00Medical Cytology Report Case: [id number] Authorizing Provider: Yary Eastman MD Collected: 12/30/2017 1434 Ordering Location: [address] Received: 12/30/2017 1620 Pathologist: Sarita Painter MD Specimen: Lung, Right Middle Lobe, BAL RIGHT MIDDLE LOBELUNG, BAL (CYTOSPINS): - NEGATIVE FOR MALIGNANCY LIMITED BY OBSCURING ACUTE INFLAMMATION AND SCANT PULMONARY ELEMENTS The GMS stains are negative for Pneumocystis organisms and other fungi. No viral inclusions are seen. 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, Department of Pathology, [address] [place] [id number], [facility], Department of Pathology, [address] [place] [address], [facility]uxw[address] [facility] [place], Department of Pathology, [address] [place] [address], [id number] 13:49:00 Test Item Value Reference Range Interpretation Comments POTASSIUM (BEAKER) (test code = 4.9 meq/L 3.5-5.1 379) RAD, ABDOMEN/KUB, 1 VIEW [id number] 13:24:00Reason for exam:->corpak placement Should this be [...] [place] Verified Date/Time: 12/31/2017 13:24:39 Reading Location: [facility] Radiology Reading Room POCT-GLUCOSE [id number] 12:27:00 Test Item Value Reference Range Interpretation Comments POC-GLUCOSE METER 170 mg/dL 70-110 H TESTED AT [facility] 6720 (BEAKER) (test code = PARESH [place] 1538) [address] SPIN/CONCENTRATION [id number] 12:24:00 Test Item Value Reference Range Interpretation Comments CONCENTRATION CHARGED (BEAKER) (test Done code = 2657) [id number] 09:52:00 Test Item Value Reference Range Interpretation Comments POTASSIUM (BEAKER) (test code = 4.7 meq/L 3.5-5.1 379) [id number] 09:52:00 Test Item Value Reference Range Interpretation Comments MAGNESIUM (BEAKER) (test code = 2.3 mg/dL 1.6-2.6 627) [id number] 09:52:00 Test Item Value Reference Range Interpretation Comments PHOSPHORUS (BEAKER) (test code = 5.3 mg/dL 2.3-4.7 H 604) TACROLIMUS [id number] 08:55:00 Test Item Value Reference Range Interpretation Comments TACROLIMUS BLOOD (BEAKER) (test 7.2 ng/mL 10.0-20.0 L code = 657) CALCIUM, [id number] 08:29:00 Test Item Value Reference Range Interpretation Comments CALCIUM IONIZED (BEAKER) (test 1.01 mmol/L 1.12-1.27 L code = 698) PH, BLOOD (BEAKER) (test code = 7.36 1810) Check serum Ionized Calcium level after 4 hours after IV Calcium replacement. RAD, CHEST, 1 VIEW, NON [id number] 06:37:00Reason for exam:->shortness of breathShould this be performed at the bedside?->YesFINAL REPORT Comparison exam: 12/30/2017 Extensive bilateral airspace opacities unchanged. Stable cardiomediastinal contours. Appropriate position of the support hardware. Signed: Mio [place] Verified Date/Time: 12/31/2017 06:37:39 Reading Location: [facility] C013 Transitional Reading Room BASIC METABOLIC [id number] 04:02:00 Test Item Value Reference Range Interpretation [...] 697) EGFR (BEAKER) (test 26 mL/min/1.73 ESTIMA ABDULLAHI GFR IS code = 1092) sq m NOT ACCURATE CREATININE CLEARANCE IN PREDICTING GLOMERULAR FILTRATION RATE . ESTIMATED GFR I S NOT APPLICABLE FOR DIALYSIS PATIEN TS. Specimen slightly ictericHEPATIC FUNCTION [id number] 03:57:00 Test Item Value Reference Range Interpretation [...] Specimen slightly ictericCBC W/PLT COUNT & AUTO [id number] 03:43:00 Test Item Value Reference Range Interpretation [...] (BEAKER) (test code = 2801) BLOOD GAS, [id number] 03:30:00 Test Item Value Reference Range Interpretation [...] code = 1819) 65.0 % OXYGEN SATURATION, [id number] 01:31:00 Test Item Value Reference Range Interpretation Comments O2 SATURATION (MEASURED) (BEAKER) 87.4 % (test code = 1455) CALCIUM, [id number] 01:26:00 Test Item Value Reference Range Interpretation Comments CALCIUM IONIZED (BEAKER) (test 0.93 mmol/L 1.12-1.27 L code = 698) PH, BLOOD (BEAKER) (test code = 7.32 1810) Check serum Ionized Calcium level after 4 hours after IV Calcium replacement. BLOOD GAS, [id number] 01:12:00 Test Item Value Reference Range Interpretation [...] code = 1819) 80.0 % BASIC METABOLIC [id number] 00:59:00 Test Item Value Reference Range Interpretation [...] 697) EGFR (BEAKER) (test 25 mL/min/1.73 ESTIMA ABDULLAHI GFR IS code = 1092) sq m NOT ACCURATE CREATININE CLEARANCE IN PREDICTING GLOMERULAR FILTRATION RATE . ESTIMATED GFR I S NOT APPLICABLE FOR DIALYSIS PATIEN TS. Specimen slightly [id number] 00:57:00 Test Item Value Reference Range Interpretation Comments MAGNESIUM (BEAKER) (test code = 2.2 mg/dL 1.6-2.6 627) LACTIC ACID, ARTERIAL, WHOLE [id number] 00:55:00 Test Item Value Reference Range Interpretation Comments LACTATE BLOOD ARTERIAL (2) 1.3 mmol/L 0.5-2.2 (BEAKER) (test code = 2874) Effective 11/02/2015: Units/Reference Range ChangeNew: 0.5-2.2 mmol/L Previous: 5-20 mg/dLSpecimen slightly [id number] 22:04:00 Test Item Value Reference Range Interpretation Comments POTASSIUM (BEAKER) (test code = 5.7 meq/L 3.5-5.1 H 379) [id number] 20:35:00 Test Item Value Reference Range Interpretation Comments PHOSPHORUS (BEAKER) (test code = 6.9 mg/dL 2.3-4.7 H 604) [id number] 20:35:00 Test Item Value Reference Range Interpretation Comments MAGNESIUM (BEAKER) (test code = 2.2 mg/dL 1.6-2.6 627) BODY FLUID CELL COUNT WITH [id number] 18:56:00 Test Item Value Reference Range Interpretation Comments APPEARANCE FLUID (BEAKER) Moderately Bloody Clear A (test code = 510) COLOR FLUID (BEAKER) (test Colorless Colorless, Straw code = 511) RBC FLUID (BEAKER) (test 32852 /cu mm <=1 H code = 513) [...] Tube (BEAKER) (test code = 2873) POCT-GLUCOSE [id number] 18:40:00 Test Item Value Reference Range Interpretation Comments POC-GLUCOSE METER 156 mg/dL 70-110 H TESTED AT [facility] 6720 (BEAKER) (test code = PARESH [place] 1538) [address] BLOOD GAS, [id number] 18:15:00 Test Item Value Reference Range Interpretation [...] code = 1819) 80.0 % U/S, RENAL, [id number] 18:05:00Reason for exam:->NOHEMI AND ASSESS PVR FINAL [...] [place] Verified Date/Time: 12/30/2017 18:05:19 Reading Location: [facility] B1 P006J [facility] CYTOLOGY [id number] 18:00:00 Test Item Value Reference Range Interpretation Comments CYTOLOGY RESULT POINTER See Separate Report (BEAKER) (test code = 2629) BASIC METABOLIC [id number] 15:00:00 Test Item Value Reference Range Interpretation [...] 697) EGFR (BEAKER) (test 20 mL/min/1.73 ESTIMA ABDULLAHI GFR IS code = 1092) sq m NOT ACCURATE CREATININE CLEARANCE IN PREDICTING GLOMERULAR FILTRATION RATE . ESTIMATED GFR I S NOT APPLICABLE FOR DIALYSIS PATIEN TS. Specimen slightly [id number] 14:59:00 Test Item Value Reference Range Interpretation Comments MAGNESIUM (BEAKER) (test code = 2.4 mg/dL 1.6-2.6 627) RAD, CHEST, 1 VIEW, NON [id number] 14:45:00Reason for exam:->s/p intubation and dialysis line [...] MDReport Verified Date/Time: 12/30/2017 14:45:29 Reading Location: [facility] Mammo Reading Room CALCIUM, IONIZED 2017-12-30 14:42:00 Test Item Value Reference Range Interpretation Comments CALCIUM IONIZED (BEAKER) (test 1.02 mmol/L 1.12-1.27 L code = 698) PH, BLOOD (BEAKER) (test code = 7.21 1810) Check serum Ionized Calcium level after 4 hours after IV Calcium replacement. BLOOD GAS, [id number] 14:42:00 Test Item Value Reference Range Interpretation [...] code = 1819) 100.0 % CMV PCR, [id number] 13:37:00 Test Item Value Reference Range Interpretation [...] and its performance characteristics determined by the [facility] Path ology Department, Section of Molecular Pathology. [...] code = 1819) 100.0 % BLOOD GAS, [id number] 12:16:00 Test Item Value Reference Range Interpretation [...] code = 1819) 100.0 % POCT-LACTIC ACID, [id number] 11:59:00 Test Item Value Reference Range Interpretation Comments POC-LACTIC ACID, 2.1 mmol/L 0.4-1.3 H TESTED AT [facility] 6720 ARTERIAL (BEAKER) [facility] (test code = 2804) [address] POCT-BLOOD GASES, [id number] 11:59:00 Test Item Value Reference Range Interpretation Comments TEMP, CELSIUS-POC 37.0 (BEAKER) (test code = 1834) FIO2-POC (BEAKER) TESTED AT [place] [address] (test code = 1835) [facility] [address] PH, ARTERIAL-POC 7.151 7.350-7.450 LL (BEAKER) (test code = 1836) PCO2, ARTERIAL-POC 48.3 mm Hg 35.0-45.0 H (BEAKER) (test code = 1837) PO2, ARTERIAL-POC 49.0 mm Hg 80.0-90.0 L (BEAKER) (test code = 1838) SO2, ARTERIAL-POC 73.0 % 96.0-97.0 L (BEAKER) (test code = 1839) HCO3, ARTERIAL-POC 16.9 meq/L 21.0-29.0 L (BEAKER) (test code = 1840) BASE EXCESS, -12.0 meq/L -2.0-3.0 L ARTERIAL-POC (BEAKER) (test code = 1841) [id number] 11:59:00 Test Item Value Reference Range Interpretation Comments POC-SODIUM (BEAKER) 136 meq/L 135-148 TESTED A [place] [address] (test code = 1542) [facility] [address] [id number] 11:59:00 Test Item Value Reference Range Interpretation Comments POC-POTASSIUM 5.7 meq/L 3.6-5.5 H TESTED AT [place] [id number] (BEAKER) (test code [facility] [address] = 1540) [id number] 11:59:00 Test Item Value Reference Range Interpretation Comments POC-GLUCOSE (BEAKER) 123 mg/dL 70-110 H TESTED AT [place] [address] (test code = 1855) [facility] [address] POCT-CALCIUM [id number] 11:59:00 Test Item Value Reference Range Interpretation Comments POC-CALCIUM IONIZED 1.06 mmol/L 1.12-1.27 L TESTED A [place] [id number] (BEAKER) (test code = [facility] [place] 1536) [address] [id number] 11:59:00 Test Item Value Reference Range Interpretation Comments POC-HEMATOCRIT 25 % 40-[address] [facility] 6720 (BEAKER) (test code = [place] [address]) [id number] 11:59:00 Test Item Value Reference Range Interpretation Comments POC-HEMOGLOBIN 8.5 g/dL 13.0-16.[address] [facility] 6720 (BEAKER) (test code = PARESH [place] 1856) [address]BBAQUT AT [facility] [address] [place] [address] TACROLIMUS [id number] 10:52:00 Test Item Value Reference Range Interpretation Comments TACROLIMUS BLOOD (BEAKER) (test 8.6 ng/mL 10.0-20.0 L code = 657) RAD, CHEST, 1 VIEW, NON [id number] 04:44:00Reason for exam:->shortness of breathShould this be performed at the bedside?->YesFINAL REPORT Comparison exam: 12/28/2017 Increasing bilateral airspace consoli dation. Stable cardiomediastinal contours. Right PICC line terminates in the right atrium. Signed: Mio [place] Verified Date/Time: 12/30/2017 04:44:59 Reading Location: [address] Ortho Consult Reading Room CBC W/PLT COUNT & AUTO [id number] 03:53:00 Test Item Value Reference Range Interpretation [...] (BEAKER) (test code = 2801) BASIC METABOLIC [id number] 03:35:00 Test Item Value Reference Range Interpretation [...] 697) EGFR (BEAKER) (test 22 mL/min/1.73 ESTIMA ABDULLAHI GFR IS code = 1092) sq m NOT ACCURATE CREATININE CLEARANCE IN PREDICTING GLOMERULAR FILTRATION RATE . ESTIMATED GFR I S NOT APPLICABLE FOR DIALYSIS PATIEN TS. [id number] 03:34:00 Test Item Value Reference Range Interpretation Comments MAGNESIUM (BEAKER) (test code = 2.5 mg/dL 1.6-2.6 627) HEPATIC FUNCTION [id number] 03:34:00 Test Item Value Reference Range Interpretation [...] = 86 U/L 6-55 H 347) CALCIUM, [id number] 03:24:00 Test Item Value Reference Range Interpretation Comments CALCIUM IONIZED (BEAKER) (test 1.04 mmol/L 1.12-1.27 L code = 698) PH, BLOOD (BEAKER) (test code = 7.29 1810) BLOOD GAS, [id number] 03:24:00 Test Item Value Reference Range Interpretation [...] code = 1819) 85.0 % BLOOD GAS, [id number] 21:12:00 Test Item Value Reference Range Interpretation [...] (test code = 1819) 85.0 % POCT-GLUCOSE [id number] 21:11:00 Test Item Value Reference Range Interpretation Comments POC-GLUCOSE METER 117 mg/dL 70-110 H TESTED AT [facility] 6720 (BEAKER) (test code = PAR[place] 1538) [address] LACTIC ACID, ARTERIAL, WHOLE [id number] 20:27:00 Test Item Value Reference Range Interpretation Comments LACTATE BLOOD ARTERIAL (2) 1.0 mmol/L 0.5-2.2 (BEAKER) (test code = 2874) Effective 11/02/2015: Units/Reference Range ChangeNew: 0.5-2.2 mmol/L Previous: 5-20 mg/dLBLOOD GAS, [id number] 20:09:00 Test Item Value Reference Range Interpretation [...] C (test code = 1818) COMPREHENSIVE METABOLIC [id number] 18:59:00 Test Item Value Reference Range Interpretation [...] 347) EGFR (BEAKER) (test 23 mL/min/1.73 ESTIMA ABDULLAHI GFR IS code = 1092) sq m NOT ACCURATE CREATININE CLEARANCE IN PREDICTING GLOMERULAR FILTRATION RATE . ESTIMATED GFR I S NOT APPLICABLE FOR DIALYSIS PATIEN TS. [id number] 18:35:00 Test Item Value Reference Range Interpretation Comments MAGNESIUM (BEAKER) (test code = 2.3 mg/dL 1.6-2.6 627) BLOOD GAS, [id number] 18:00:00 Test Item Value Reference Range Interpretation [...] C (test code = 1818) OXYGEN SATURATION, [id number] 18:00:00 Test Item Value Reference Range Interpretation Comments O2 SATURATION (MEASURED) (BEAKER) 89.9 % (test code = 1455) CALCIUM, [id number] 18:00:00 Test Item Value Reference Range Interpretation Comments CALCIUM IONIZED (BEAKER) (test 1.03 mmol/L 1.12-1.27 L code = 698) PH, BLOOD (BEAKER) (test code = 7.35 1810) CBC W/PLT COUNT & AUTO [id number] 15:15:00 Test Item Value Reference Range Interpretation [...] PERCENT (BEAKER) (test code = 2801) POCT-GLUCOSE [id number] 12:54:00 Test Item Value Reference Range Interpretation Comments POC-GLUCOSE METER 111 mg/dL 70-110 H TESTED AT [facility] 6720 (BEAKER) (test code = PARESH [place] 1538) [address] SPUTUM CULTURE + GRAM [id number] 10:56:00 Test Item Value Reference Range Interpretation Comments CULTURE (BEAKER) 3+ Normal respiratory (test code = 1095) tre present GRAM STAIN RESULT 3+ White blood cells (BEAKER) (test code = seen 1123) GRAM STAIN RESULT 0-5 epithelial cells (BEAKER) (test code = 55824) GRAM STAIN RESULT <1+ gram negative rods (BEAKER) (test code = 19337) GRAM STAIN RESULT <1+ gram positive rods (BEAKER) (test code = 568762) GRAM STAIN RESULT <1+ gram positive cocci (BEAKER) (test code = in clusters 396905) TACROLIMUS [id number] 10:34:00 Test Item Value Reference Range Interpretation Comments TACROLIMUS BLOOD (BEAKER) (test 9.2 ng/mL 10.0-20.0 L code = 657) BLOOD GAS, [id number] 08:45:00 Test Item Value Reference Range Interpretation [...] (test code = 1819) 40.0 % CALCIUM, [id number] 07:52:00 Test Item Value Reference Range Interpretation Comments CALCIUM IONIZED (BEAKER) (test 1.01 mmol/L 1.12-1.27 L code = 698) PH, BLOOD (BEAKER) (test code = 7.41 1810) Check serum Ionized Calcium level after 4 hours after IV Calcium replacement. BASIC METABOLIC [id number] 06:54:00 Test Item Value Reference Range Interpretation [...] 697) EGFR (BEAKER) (test 25 mL/min/1.73 ESTIMA ABDULLAHI GFR IS code = 1092) sq m NOT ACCURATE CREATININE CLEARANCE IN PREDICTING GLOMERULAR FILTRATION RATE . ESTIMATED GFR I S NOT APPLICABLE FOR DIALYSIS PATIEN TS. HEPATIC FUNCTION [id number] 06:14:00 Test Item Value Reference Range Interpretation [...] 96 U/L 6-55 H 347) VANCOMYCIN LEVEL, [id number] 06:12:00 Test Item Value Reference Range Interpretation Comments VANCOMYCIN TROUGH (BEAKER) (test 17.7 ug/mL 10.0-20.0 code = 522) HEPATITIS PANEL, [id number] 01:10:00 Test Item Value Reference Range Interpretation Comments HEPATITIS A IGM ANTIBODY (BEAKER) Nonreactive Nonreactive (test code = 498) HEPATITIS B CORE IGM ANTIBODY Nonreactive Nonreactive (BEAKER) (test code = 645) HEPATITIS C ANTIBODY (BEAKER) Nonreactive Nonreactive (test code = 367) HEPATITIS B SURFACE ANTIGEN (2) Nonreactive Nonreactive (BEAKER) (test code = 2585) BLOOD GAS, [id number] 23:35:00 Test Item Value Reference Range Interpretation [...] % 30 minutes after sodium bicarbonate administration.CALCIUM, [id number] 20:10:00 Test Item Value Reference Range Interpretation Comments CALCIUM IONIZED (BEAKER) (test 1.02 mmol/L 1.12-1.27 L code = 698) PH, BLOOD (BEAKER) (test code = 7.38 1810) BLOOD GAS, [id number] 20:09:00 Test Item Value Reference Range Interpretation [...] (BEAKER) (test code = 1819) 40.0 % [id number] 17:27:00 Test Item Value Reference Range Interpretation Comments HAPTOGLOBIN (BEAKER) (test code = 86 mg/dL 14-258 366) CREATININE, RANDOM [id number] 16:05:00 Test Item Value Reference Range Interpretation Comments CREATININE URINE (BEAKER) (test 53.1 mg/dL code = 375) Reference Range: No NormalsPOTASSIUM, RANDOM [id number] 16:05:00 Test Item Value Reference Range Interpretation Comments POTASSIUM URINE (BEAKER) (test 48.4 meq/L code = 195) Reference Range: No NormalsPROTEIN, RANDOM [id number] 16:05:00 Test Item Value Reference Range Interpretation Comments PROTEIN, URINE (BEAKER) (test code = 9 mg/dL 0-14 1569) SODIUM, RANDOM [id number] 16:05:00 Test Item Value Reference Range Interpretation Comments SODIUM URINE (BEAKER) (test code = 64 meq/L 243) Reference Range: No NormalsURINALYSIS W/ [id number] 16:02:00 Test Item Value Reference Range Interpretation [...] 1574) SOURCE(BEAKER) (test code = Urine, Voided 1634) CREATINE KINASE (CK)2017-12-28 15:27:00 Test Item Value Reference Range Interpretation Comments CREATINE KINASE TOTAL (BEAKER) (test 133 U/L 29-200 code = 380) [id number] 15:26:00 Test Item Value Reference Range Interpretation Comments POTASSIUM (BEAKER) (test code = 4.6 meq/L 3.5-5.1 379) [id number] 15:26:00 Test Item Value Reference Range Interpretation Comments MAGNESIUM (BEAKER) (test code = 2.2 mg/dL 1.6-2.6 627) [id number] 15:26:00 Test Item Value Reference Range Interpretation Comments PHOSPHORUS (BEAKER) (test code = 4.1 mg/dL 2.3-4.7 604) CALCIUM, [id number] 14:59:00 Test Item Value Reference Range Interpretation Comments CALCIUM IONIZED (BEAKER) (test 0.98 mmol/L 1.12-1.27 L code = 698) PH, BLOOD (BEAKER) (test code = 7.42 1810) [id number] 12:31:00 Test Item Value Reference Range Interpretation Comments PROCALCITONIN (BEAKER) (test code = > ng/mL <0.05 3036) SEPSIS RISK (ng/mL)Low: 0.05-0.50Intermediate: 0.51-2.00High: >=2.01IMMUNOGLOBULIN G (IGG)2017-12-28 12:15:00 Test Item Value Reference Range Interpretation Comments IMMUNOGLOBULIN G (IGG) (BEAKER) (test < mg/dL 540-1822 L code = 427) CBC W/PLT COUNT & AUTO [id number] 11:41:00 Test Item Value Reference Range Interpretation [...] MDReport Verified Date/Time: 12/28/2017 10:56:56 Reading Location: [facility] [id number] Ortho Consult Reading [facility] [id number] 10:02:00 Test Item Value Reference Range Interpretation [...] 125-220 H code = 635) HEPATIC FUNCTION [id number] 09:38:00 Test Item Value Reference Range Interpretation [...] = 109 U/L 6-55 H 347) TACROLIMUS [id number] 08:50:00 Test Item Value Reference Range Interpretation Comments TACROLIMUS BLOOD (BEAKER) (test 11.2 ng/mL 10.0-20.0 code = 657) [id number] 08:44:00 Test Item Value Reference Range Interpretation Comments CORTISOL, TOTAL (BEAKER) (test 16.7 ug/dL 3.7-19.4 code = 2755) BASIC METABOLIC [id number] 07:08:00 Test Item Value Reference Range Interpretation [...] 697) EGFR (BEAKER) (test 25 mL/min/1.73 ESTIMA ABDULLAHI GFR IS code = 1092) sq m NOT ACCURATE CREATININE CLEARANCE IN PREDICTING GLOMERULAR FILTRATION RATE . ESTIMATED GFR I S NOT APPLICABLE FOR DIALYSIS PATIEN TS. VANCOMYCIN LEVEL, [id number] 06:47:00 Test Item Value Reference Range Interpretation Comments VANCOMYCIN RANDOM (BEAKER) (test 13.8 ug/mL code = 523) Reference Range: No [id number] 06:23:00 Test Item Value Reference Range Interpretation Comments MAGNESIUM (BEAKER) (test code = 1.7 mg/dL 1.6-2.6 627) BLOOD GAS, [id number] 06:07:00 Test Item Value Reference Range Interpretation [...] 1819) 100.0 % LACTIC ACID, ARTERIAL, WHOLE [id number] 05:20:00 Test Item Value Reference Range Interpretation Comments LACTATE BLOOD ARTERIAL (2) 3.1 mmol/L 0.5-2.2 H (BEAKER) (test code = 2874) Effective 11/02/2015: Units/Reference Range ChangeNew: 0.5-2.2 mmol/L Previous: 5-20 mg/dLLACTIC ACID, VENOUS, WHOLE [id number] 23:10:00 Test Item Value Reference Range Interpretation Comments LACTATE BLOOD VENOUS (2) (BEAKER) 4.1 mmol/L 0.5-2.2 H (test code = 2872) Effective 11/02/2015: Units/Reference Range ChangeNew: 0.5-2.2 mmol/L Previous: 5-20 mg/[id number] 23:09:00 Test Item Value Reference Range Interpretation Comments POTASSIUM (BEAKER) (test code = 5.0 meq/L 3.5-5.1 379) BLOOD GAS, [id number] 22:54:00 Test Item Value Reference Range Interpretation [...] C (test code = 1818) U/S, ABDOMINAL, [id number] 22:00:00Abdomen limited area? Add comment if clarification [...] cholecystitis. 2. Small volume ascites. Signed: Mio Finkort Verified Date/Time: 12/27/2017 22:00:32 Reading Location: [address] Consult Reading Room RAD, CHEST, 1 VIEW, NON [id number] 19:03:00Reason for exam:->eval pulmonary congestion/dyspneaShould this be [...] MDReport Verified Date/Time: 12/27/2017 19:03:45 Reading Location: [address] Reading Room BLOOD GAS, [id number] 18:29:00 Test Item Value Reference Range Interpretation [...] 21.0 % RAD, CHEST, 1 VIEW, NON [id number] 15:36:00Reason for exam:->RUE picc line placement Should [...] MDReport Verified Date/Time: 12/27/2017 15:36:05 Reading Location: [address] Consult Reading Room BASI METABOLIC [id number] 14:47:00 Test Item Value Reference Range Interpretation [...] 697) EGFR (BEAKER) (test 29 mL/min/1.73 ESTIMA ABDULLAHI GFR IS code = 1092) sq m NOT ACCURATE CREATININE CLEARANCE IN PREDICTING GLOMERULAR FILTRATION RATE . ESTIMATED GFR I S NOT APPLICABLE FOR DIALYSIS PATIEN TS. LACTIC ACID, ARTERIAL, WHOLE [id number] 14:33:00 Test Item Value Reference Range Interpretation Comments LACTATE BLOOD ARTERIAL (2) 4.2 mmol/L 0.5-2.2 H (BEAKER) (test code = 2874) Effective 11/02/2015: Units/Reference Range ChangeNew: 0.5-2.2 mmol/L Previous: 5-20 mg/dLBLOOD GAS, [id number] 14:11:00 Test Item Value Reference Range Interpretation [...] (test code = 1819) 21.0 % PROTHROMBIN [id number] 11:17:00 Test Item Value Reference Range Interpretation Comments PROTIME (BEAKER) (test code = 23.8 seconds 11.7-14.7 H 759) INR (BEAKER) (test code = 370) 2.1 <=5.9 RECOMMENDED COUMADIN/WARFARIN INR THERAPY RANGESSTANDARD DOSE: 2.0 - 3.0 Includes: PROPHYLAXIS forvenous thrombosis, systemic embolization; TREATMENT for venous thrombosis and/or pulmonary embolus.HIGH RISK: Target INR is 2.5-3.5 for patients with mechanical heart valves.[id number] 11:17:00 Test Item Value Reference Range Interpretation Comments FIBRINOGEN LEVEL (BEAKER) (test 337 mg/dl 225-434 code = 658) CBC W/PLT COUNT & AUTO [id number] 11:13:00 Test Item Value Reference Range Interpretation [...] Received comment: User comments: Slide comments:RESPIRATORY PANEL [id number] 10:38:00 Test Item Value Reference Range Interpretation [...] (BEAKER) (test code = Inconclusive 3207) TACROLIMUS [id number] 08:44:00 Test Item Value Reference Range Interpretation Comments TACROLIMUS BLOOD (BEAKER) (test 12.2 ng/mL 10.0-20.0 code = 657) [id number] 08:35:00 Test Item Value Reference Range Interpretation Comments MAGNESIUM (BEAKER) (test code = 1.7 mg/dL 1.6-2.6 627) CALCIUM, [id number] 06:59:00 Test Item Value Reference Range Interpretation Comments CALCIUM IONIZED (BEAKER) (test 1.05 mmol/L 1.12-1.27 L code = 698) PH, BLOOD (BEAKER) (test code = 7.35 1810) Check serum Ionized Calcium level after 4 hours after IV Calcium replacement. BASIC METABOLIC [id number] 06:02:00 Test Item Value Reference Range Interpretation [...] 697) EGFR (BEAKER) (test 35 mL/min/1.73 ESTIMA ABDULLAHI GFR IS code = 1092) sq m NOT ACCURATE CREATININE CLEARANCE IN PREDICTING GLOMERULAR FILTRATION RATE . ESTIMATED GFR I S NOT APPLICABLE FOR DIALYSIS PATIEN TS. LACTIC ACID, VENOUS, WHOLE [id number] 05:50:00 Test Item Value Reference Range Interpretation Comments LACTATE BLOOD VENOUS (2) (BEAKER) 5.9 mmol/L 0.5-2.2 H (test code = 2872) Effective 11/02/2015: Units/Reference Range ChangeNew: 0.5-2.2 mmol/L Previous: 5-20 mg/dLBLOOD GAS, [id number] 05:29:00 Test Item Value Reference Range Interpretation [...] code = 1819) 21.0 % STREP PNEUMONIAE [id number] 04:39:00 Test Item Value Reference Range Interpretation [...] the detection limit of the test.LEGIONELLA ANTIGEN, [id number] 04:39:00 Test Item Value Reference Range Interpretation Comments L. PNEUMOPHILA Negative - see Negative fo r L. SEROGP 1 UR AG comment pneumophila (BEAKER) (test code serogrou p 1 antigen, = 1156) suggesting no r ecent or current infe ction with this serog roup. Legionellosis c annot be ruled out si nce other serogroup s and species may cau se disease. [id number] 02:38:00 Test Item Value Reference Range Interpretation Comments POTASSIUM (BEAKER) (test code = 5.2 meq/L 3.5-5.1 H 379) LACTIC ACID, ARTERIAL, WHOLE [id number] 02:38:00 Test Item Value Reference Range Interpretation Comments LACTATE BLOOD 6.1 mmol/L 0.5-2.2 H Specimen sligh tly ARTERIAL (2) (BEAKER) hemoly zed (test code = 2874) Effective 11/02/2015: Units/Reference Range ChangeNew: 0.5-2.2 mmol/L Previous: 5-20 mg/dLBLOOD GAS, [id number] 02:17:00 Test Item Value Reference Range Interpretation [...] code = 1819) 100.0 % BASIC METABOLIC [id number] 01:24:00 Test Item Value Reference Range Interpretation [...] 697) EGFR (BEAKER) (test 38 mL/min/1.73 ESTIMA ABDULLAHI GFR IS code = 1092) sq m NOT ACCURATE CREATININE CLEARANCE IN PREDICTING GLOMERULAR FILTRATION RATE . ESTIMATED GFR I S NOT APPLICABLE FOR DIALYSIS PATIEN TS. [id number] 01:12:00 Test Item Value Reference Range Interpretation Comments MAGNESIUM (BEAKER) (test code = 1.2 mg/dL 1.6-2.6 L 627) LACTIC ACID, VENOUS, WHOLE [id number] 01:04:00 Test Item Value Reference Range Interpretation Comments LACTATE BLOOD VENOUS (2) (BEAKER) 6.2 mmol/L 0.5-2.2 H (test code = 2872) Effective 11/02/2015: Units/Reference Range ChangeNew: 0.5-2.2 mmol/L Previous: 5-20 mg/dLCALCIUM, [id number] 00:32:00 Test Item Value Reference Range Interpretation Comments CALCIUM IONIZED (BEAKER) (test 1.05 mmol/L 1.12-1.27 L code = 698) PH, BLOOD (BEAKER) (test code = 7.22 1810) BLOOD GAS, [id number] 00:31:00 Test Item Value Reference Range Interpretation [...] code = 1819) 21.0 % HEMOGLOBIN AND [id number] 00:28:00 Test Item Value Reference Range Interpretation [...] 347) EGFR (BEAKER) (test 35 mL/min/1.73 ESTIMA ABDULLAHI GFR IS code = 1092) sq m NOT ACCURATE CREATININE CLEARANCE IN PREDICTING GLOMERULAR FILTRATION RATE . ESTIMATED GFR I S NOT APPLICABLE FOR DIALYSIS PATIEN TS. CBC W/PLT COUNT & AUTO [id number] 22:18:00 Test Item Value Reference Range Interpretation [...] code = 413) LACTIC ACID, VENOUS, WHOLE [id number] 22:08:00 Test Item Value Reference Range Interpretation Comments LACTATE BLOOD VENOUS (2) (BEAKER) 9.1 mmol/L 0.5-2.2 H (test code = 2872) Effective 11/02/2015: Units/Reference Range ChangeNew: 0.5-2.2 mmol/L Previous: 5-20 mg/dLRAD, CHEST, 1 VIEW, NON [id number] 21:46:00Reason for exam:->SOBFINAL REPORT RAD, CHEST, 1 [...] MDReport Verified Date/Time: 12/26/2017 21:46:39 Reading Location: [address] Reading Room TACROLIMUS [id number] 15:12:00 Test Item Value Reference Range Interpretation Comments TACROLIMUS BLOOD (BEAKER) (test 11.5 ng/mL 10.0-20.0 code = 657) [id number] 11:00:00 Test Item Value Reference Range Interpretation Comments MAGNESIUM (BEAKER) (test code = 1.9 mg/dL 1.6-2.6 627) BASIC METABOLIC [id number] 11:00:00 Test Item Value Reference Range Interpretation [...] 697) EGFR (BEAKER) (test 45 mL/min/1.73 ESTIMA ABDULLAHI GFR IS code = 1092) sq m NOT ACCURATE CREATININE CLEARANCE IN PREDICTING GLOMERULAR FILTRATION RATE . ESTIMATED GFR I S NOT APPLICABLE FOR DIALYSIS PATIEN TS. CBC W/PLT COUNT & AUTO [id number] 10:42:00 Test Item Value Reference Range Interpretation [...] PERCENT (BEAKER) (test code = 2801) BLOOD [id number] 13:27:00 Test Item Value Reference Range Interpretation Comments CULTURE (BEAKER) (test No growth in 5 days code = 1095) SPUTUM CULTURE + GRAM [id number] 13:39:00 Test Item Value Reference Range Interpretation Comments CULTURE (BEAKER) 2+ Normal respiratory (test code = 1095) tre present GRAM STAIN RESULT 3+ WBCs (BEAKER) (test code = 1123) GRAM STAIN RESULT 0-5 epithelial cells (BEAKER) (test code = 96747) GRAM STAIN RESULT No organisms seen (BEAKER) (test code = 21981) TACROLIMUS [id number] 09:48:00 Test Item Value Reference Range Interpretation Comments TACROLIMUS BLOOD (BEAKER) (test 7.3 ng/mL 10.0-20.0 L code = 657) BASIC METABOLIC [id number] 06:43:00 Test Item Value Reference Range Interpretation [...] 697) EGFR (BEAKER) (test 59 mL/min/1.73 ESTIMA ABDULLAHI GFR IS code = 1092) sq m NOT ACCURATE CREATININE CLEARANCE IN PREDICTING GLOMERULAR FILTRATION RATE . ESTIMATED GFR I S NOT APPLICABLE FOR DIALYSIS PATIEN TS. CBC W/PLT COUNT & AUTO [id number] 06:41:00 Test Item Value Reference Range Interpretation [...] L 0.00-0.20 (test code = 417) 0.00TACROLIMUS [id number] 12:16:00 Test Item Value Reference Range Interpretation Comments TACROLIMUS BLOOD (BEAKER) (test 7.3 ng/mL 10.0-20.0 L code = 657) CBC W/PLT COUNT & AUTO [id number] 07:26:00 Test Item Value Reference Range Interpretation [...] K/ L 0.00-0.20 (test code = 417) 0.00BASI METABOLIC [id number] 06:50:00 Test Item Value Reference Range Interpretation [...] 697) EGFR (BEAKER) (test 66 mL/min/1.73 ESTIMA ABDULLAHI GFR IS code = 1092) sq m NOT ACCURATE CREATININE CLEARANCE IN PREDICTING GLOMERULAR FILTRATION RATE . ESTIMATED GFR I S NOT APPLICABLE FOR DIALYSIS PATIEN TS. SPUTUM CULTURE + GRAM [id number] 15:49:00 Test Item Value Reference Range Interpretation Comments CULTURE (BEAKER) Oropharyngeal (test code = 1095) contamination, specimen rejected. Recollect requested. GRAM STAIN RESULT 3+ White blood cells seen (BEAKER) (test code = 1123) GRAM STAIN RESULT >25 epithelial cells (BEAKER) (test code = 52141) GRAM STAIN RESULT <1+ gram negative rods (BEAKER) (test code = 55673) TACROLIMUS [id number] 13:39:00 Test Item Value Reference Range Interpretation Comments TACROLIMUS BLOOD (BEAKER) (test 6.1 ng/mL 10.0-20.0 L code = 657) RESPIRATORY PANEL [id number] 13:06:00 Test Item Value Reference Range Interpretation Comments HUMAN METAPNEUMOVIRUS Not detected Not detected, (BEAKER) (test code = Inconclusive 6193) RHINOVIRUS (BEAKER) (test Not detected Not detected, code = 6594) Inconclusive INFLUENZA A (BEAKER) (test Not detected Not detected, code = 5715) Inconclusive INFLUENZA A SUBTYPE H1 Not detected [...] detected, VIRUS (BEAKER) (test code Inconclusive = 5844) PARAINFLUENZA VIRUS 1 Not detected Not detected, (BEAKER) (test code = Inconclusive 2691) PARAINFLUENZA VIRUS 2 Not detected Not detected, (BEAKER) (test code = Inconclusive 2692) PARAINFLUENZA VIRUS 3 Not detected Not detected, (BEAKER) (test code = Inconclusive 2693) PARAINFLUENZA VIRUS 4 Not detected Not detected, (BEAKER) (test code = Inconclusive 3200) ADENOVIRUS (BEAKER) (test Not detected Not detected, code = 1257) Inconclusive CORONAVIRUS 229E (BEAKER) Not detected Not [...] (BEAKER) (test code = Inconclusive 3207) TACROLIMUS [id number] 11:17:00 Test Item Value Reference Range Interpretation Comments TACROLIMUS BLOOD (BEAKER) (test 5.9 ng/mL 10.0-20.0 L code = 657) BASIC METABOLIC [id number] 07:20:00 Test Item Value Reference Range Interpretation [...] 697) EGFR (BEAKER) (test 60 mL/min/1.73 ESTIMA ABDULLAHI GFR IS code = 1092) sq m NOT ACCURATE CREATININE CLEARANCE IN PREDICTING GLOMERULAR FILTRATION RATE . ESTIMATED GFR I S NOT APPLICABLE FOR DIALYSIS PATIEN TS. CBC W/PLT COUNT & AUTO [id number] 07:16:00 Test Item Value Reference Range Interpretation [...] K/ L 0.00-0.20 (test code = 417) 0.00TROPONIN [id number] 18:57:00 Test Item Value Reference Range Interpretation [...] 61 pg/mL 0-100 (test code = 700) CREATINE KINASE (CK), TOTAL AND [id number] 18:57:00 Test Item Value Reference Range Interpretation Comments CREATINE KINASE TOTAL (BEAKER) 35 U/L 29-200 (test code = 380) CREATINE KINASE-MB (BEAKER) (test 0.9 ng/mL 0.0-6.6 code = 750) CREATINE KINASE-MB INDEX (BEAKER) 2.6 % (test code = 395) Effective 05/18/2014: CK-MB Reference Range ChangeNew: 0.0-6.6 Previous: 0.0-4.9CK-MB Reference Range:<6.7 Normal6.7-10.0 Borderline>10.0 AbnormalBASIC METABOLIC [id number] 18:50:00 Test Item Value Reference Range Interpretation [...] 697) EGFR (BEAKER) (test 50 mL/min/1.73 ESTIMA ABDULLAHI GFR IS code = 1092) sq m NOT ACCURATE CREATININE CLEARANCE IN PREDICTING GLOMERULAR FILTRATION RATE . ESTIMATED GFR I S NOT APPLICABLE FOR DIALYSIS PATIEN TS. [id number] 18:50:00 Test Item Value Reference Range Interpretation [...] code = 417) 0.00LACTIC ACID, VENOUS, WHOLE [id number] 18:46:00 Test Item Value Reference Range Interpretation Comments LACTATE BLOOD VENOUS 1.7 mmol/L 0.5-2.2 Specime n moderately (2) (BEAKER) (test hemolyzed code = 2872) Effective 11/02/2015: Units/Reference Range ChangeNew: 0.5-2.2 mmol/L Previous: 5-20 mg/dL
[2020-11-21] MEDS ORDERED: HYDROCODONE/APAP 7.5/325 MG TAB ONE (05:32)
[2020-11-21 05:56] LABS: Absolute Lymphocytes (CBC) 0.5 K/uL (0.7-4.9); Basophils % 1.2 % (0-1.3); Hematocrit 23.2 % (39.6-49.0); Lymphocytes % 13.8 % (15.3-44.8); MPV 7.7 fL (7.6-11.3); RBC Red Blood Cell Count 2.35 M/uL (4.33-5.43)
[2020-11-21 06:04] LABS: C-Reactive Protein 9.73 mg/L (<3.00); Potassium 4.2 mmol/L (3.5-5.1)
--- NOTE | 2020-11-21 06:46 | ER ---
Nurse's Notes [facility] Name: Joel Desouza Age: 65 yrs Sex: Male : 1955 Arrival Date: 11/21/2020 Time: 04:35 Bed 13 Private MD: Diagnosis: Pain both feet. Possible gout. Chronic renal disease Presentation: 11/21 04:43 Chief complaint: Patient states: foot pain for a week. Coronavirus screen: Client wh denies travel out of the [place] in the last 14 days. At this time, the client does not indicate any symptoms associated with coronavirus-19. Ebola Screen: Patient negative for fever greater than or equal to 101.5 degrees Fahrenheit, and additional compatible Ebola Virus Disease symptoms Patient denies exposure to infectious person. Initial Sepsis Screen: Does the patient meet any 2 criteria? No. Patient's initial sepsis screen is negative. Does the patient have a suspected source of infection? No. Patient's initial sepsis screen is negative. Risk Assessment: Do you want to hurt yourself or someone else? Patient reports no desire to harm self or others. Onset of symptoms was November 21, 2020. 04:43 Method Of Arrival: Wheelchair 04:43 Acuity: TESSIE 3 Historical: - Allergies: 04:45 No Known Allergies; - PMHx: 04:45 Cirrhosis; CVID - Common Variable Immune Disorder; kidney failure; skin cancer; - PSHx: 04:45 Lung Transplant; - Immunization history:: Adult Immunizations up to date. - Social history:: Smoking status: Patient denies any tobacco usage or history of. Screenin:46 Abuse screen: Denies threats or abuse. Denies injuries from another. Nutritional screening: No deficits noted. Tuberculosis screening: No symptoms or risk factors identified. Fall Risk None identified. Assessment: 04:46 General: Appears in no apparent distress. Behavior is calm, cooperative. Pain: Complains of pain in right foot and left foot Pain currently is 8 out of 10 on a pain scale. Quality of pain is described as throbbing. Neuro: Level of Consciousness is awake, alert, obeys commands, Oriented to person, place, time, situation. Cardiovascular: Capillary refill < 3 seconds Edema pitting to left foot and right foot. Respiratory: Airway is patent Respiratory effort is even, unlabored, Respiratory pattern is regular, symmetrical. GI: Abdomen is flat, non-distended. : No signs and/or symptoms were reported regarding the genitourinary system. EENT: No signs and/or symptoms were reported regarding the EENT system. Derm: Skin is intact, is healthy with good turgor, Skin is pink, warm \T\ dry. normal. Musculoskeletal: Circulation, motion, and sensation intact. 06:23 Reassessment: Patient appears in no apparent distress at this time. No changes from previously documented assessment. Patient and/or family updated on plan of care and expected duration. Pain level reassessed. Patient is alert, oriented x 3, equal unlabored respirations, skin warm/dry/pink. 06:29 Reassessment: MD discussing management for Gout, Colchicine not recommended for Pt with renal disease, Pt stated still wants to try one dose for relief. Vital Signs: 04:43 BP 129 / 70; Pulse 67; Resp 18; Temp 98.9; Pulse Ox 100% ; Weight 52.16 kg; Height 5 wh ft. 6 in. (167.64 cm); Pain 8/10; 06:23 BP 143 / 62; Pulse 76; Resp 18; Pulse Ox 99% on R/A; 04:43 Body Mass Index 18.56 (52.16 kg, 167.64 cm) ED Course: 04:35 Patient arrived in ED. am4 04:36 mL Gibson, RN is Primary Nurse. 04:45 Triage completed. 04:46 Patient has correct armband on for positive identification. Bed in low position. Call light in reach. Side rails up X 1. Pulse ox on. NIBP on. 04:46 Arm band placed on right wrist. 04:55 Martín Yin MD is Attending Physician. pkl 05:28 Foot Left 3 View XRAY In Process Unspecified. EDMS 05:29 Foot Right 3 View XRAY In Process Unspecified. EDMS 06:57 No provider procedures requiring assistance completed. Patient did not have IV access during this emergency room visit. Administered Medications: 05:14 Drug: Dania (HYDROcodone-acetaminophen) (7.5 mg-325 mg) 1 tabs Route: PO; ak2 06:57 Follow up: Response: No adverse reaction; Pain is decreased; RASS: Alert and Calm (0) 06:41 Drug: Colcrys (colchicine) 1.2 mg Route: PO; 06:57 Follow up: Response: No adverse reaction Outcome: 06:45 Discharge ordered by . maco 06:57 Discharged to home via wheelchair. 06:57 Condition: stable 06:57 Discharge instructions given to patient, Instructed on discharge instructions, follow up and referral plans. no drinking with medication, no driving heavy equipment, medication usage, POC Demonstrated understanding of instructions, follow-up care, medications, POC Prescriptions given X 1. 06:58 Patient left the ED. Signatures: Dispatcher [employer] EDMS Martín Yin MD MD pkl Habalo, Winsy, RN RN Salima Gaines Anthony ak2 Corrections: (The following items were deleted from the chart) 05:20 04:46 Cardiovascular: Capillary refill < 3 seconds [facility]
--- NOTE | 2020-11-21 06:46 | EDPHYS ---
Physician Documentation [facility] Name: Joel Desouza Age: 65 yrs Sex: Male : 1955 Arrival Date: 11/21/2020 Time: 04:35 Bed 13 Private MD: ED Physician Martín Yin HPI: 11/21 05:20 This 65 yrs old Male presents to ER via Wheelchair with complaints of Foot pkl Pain. 05:20 The patient presents with pain, that is acute. The complaints affect the left foot, pkl right foot. Onset: The symptoms/episode began/occurred 1 week(s) ago. Associated signs and symptoms: The patient has no apparent associated signs or symptoms. Historical: - Allergies: 04:45 No Known Allergies; wh - PMHx: 04:45 Cirrhosis; CVID - Common Variable Immune Disorder; kidney failure; skin cancer; wh - PSHx: 04:45 Lung Transplant; wh - Immunization history:: Adult Immunizations up to date. - Social history:: Smoking status: Patient denies any tobacco usage or history of. ROS: 05:20 MS/extremity: Positive for pain, of the left foot and right foot. pkl 05:20 Eyes: Negative for injury, pain, redness, and discharge, ENT: Negative for injury, pain, and discharge, Neck: Negative for injury, pain, and swelling, Cardiovascular: Negative for chest pain, palpitations, and edema, Respiratory: Negative for shortness of breath, cough, wheezing, and pleuritic chest pain, Abdomen/GI: Negative for abdominal pain, nausea, vomiting, diarrhea, and constipation, Back: Negative for injury and pain, : Negative for injury, bleeding, discharge, and swelling, Skin: Negative for injury, rash, and discoloration, Neuro: Negative for headache, weakness, numbness, tingling, and seizure. Exam: 05:20 Head/Face: Normocephalic, atraumatic. Eyes: Pupils equal round and reactive to light, pkl extra-ocular motions intact. Lids and lashes normal. Conjunctiva and sclera are non-icteric and not injected. Cornea within normal limits. Periorbital areas with no swelling, redness, or edema. ENT: Nares patent. No nasal discharge, no septal abnormalities noted. Tympanic membranes are normal and external auditory canals are clear. Oropharynx with no redness, swelling, or masses, exudates, or evidence of obstruction, uvula midline. Mucous membranes moist. Neck: Trachea midline, no thyromegaly or masses palpated, and no cervical lymphadenopathy. Supple, full range of motion without nuchal rigidity, or vertebral point tenderness. No Meningismus. Chest/axilla: Normal chest wall appearance and motion. Nontender with no deformity. No lesions are appreciated. Cardiovascular: Regular rate and rhythm with a normal S1 and S2. No gallops, murmurs, or rubs. Normal PMI, no JVD. No pulse deficits. Respiratory: Lungs have equal breath sounds bilaterally, clear to auscultation and percussion. No rales, rhonchi or wheezes noted. No increased work of breathing, no retractions or nasal flaring. Abdomen/GI: Soft, non-tender, with normal bowel sounds. No distension or tympany. No guarding or rebound. No evidence of tenderness throughout. Back: No spinal tenderness. No costovertebral tenderness. Full range of motion. Skin: Warm, dry with normal turgor. Normal color with no rashes, no lesions, and no evidence of cellulitis. Neuro: Awake and alert, GCS 15, oriented to person, place, time, and situation. Cranial nerves II-XII grossly intact. Motor strength 5/5 in all extremities. Sensory grossly intact. Cerebellar exam normal. Normal gait. 05:20 Musculoskeletal/extremity: Extremities: grossly normal except: noted in the left foot and right foot: pain. Vital Signs: 04:43 BP 129 / 70; Pulse 67; Resp 18; Temp 98.9; Pulse Ox 100% ; Weight 52.16 kg; Height 5 wh ft. 6 in. (167.64 cm); Pain 8/10; 06:23 BP 143 / 62; Pulse 76; Resp 18; Pulse Ox 99% on R/A; wh 04:43 Body Mass Index 18.56 (52.16 kg, 167.64 cm) wh MDM: 04:55 Patient medically screened. pkl 06:31 Data reviewed: vital signs, nurses notes, lab test result(s), radiologic studies, plain pkl films. ED course: Discussed lab and X' rays result with patient. Uric Acid elevated ( 14 ) Explained to patient Colchicine for treatment of gout is contraindicated in renal impaired patient. Patient said he would like to try just one dose of Colchicine to see if he would get some pain relief.. 11/21 05:08 Order name: CBC with Diff pkl 11/21 05:08 Order name: Chem 7; Complete Time: 06:11 pkl 11/21 05:08 Order name: CRP; Complete Time: 06:11 pkl 11/21 05:08 Order name: Sed Rate pkl 11/21 05:08 Order name: Uric Acid; Complete Time: 06:11 pkl 11/21 05:08 Order name: Foot Left 3 View XRAY pkl 11/21 05:08 Order name: Foot Right 3 View XRAY pkl Administered Medications: 05:14 Drug: [place] (HYDROcodone-acetaminophen) (7.5 mg-325 mg) 1 tabs Route: PO; ak2 06:57 Follow up: Response: No adverse reaction; Pain is decreased; RASS: Alert and Calm (0) 06:41 Drug: Colcrys (colchicine) 1.2 mg Route: PO; 06:57 Follow up: Response: No adverse reaction Disposition: 11/21/20 06:45 Discharged to Home. Impression: Pain both feet. Possible gout. Chronic renal disease. - Condition is Stable. - Discharge Instructions: Gout, [id number]. - Prescriptions for Tylenol- Codeine #3 300-30 mg Oral Tablet - take 1 tablet by ORAL route every 8 hours As needed; 15 tablet. - Medication Reconciliation Form, Thank You Letter, Antibiotic Education, Prescription Opioid Use form. - Follow up: Private Physician; When: 2 - 3 days; Reason: Re-evaluation by your physician. - Problem is new. - Symptoms have improved. Signatures: Dispatcher [employer] EDMartín Easton MD MD pkl Habalo, Winsy RN RN Nikita Ricardo ak2 Corrections: (The following items were deleted from the chart) 06:58 06:45 11/21/2020 06:45 Discharged to Home. Impression: Pain both feet. Possible gout. Chronic renal disease. Condition is Stable. Discharge Instructions: Gout, [id number]. Forms are Medication Reconciliation Form, Thank You Letter, Antibiotic Education, Prescription Opioid Use. Follow up: Private Physician; When: 2 - 3 days; Reason: Re-evaluation by your physician. Problem is new. Symptoms have improved. pkl
[2020-11-21] MEDS ORDERED: COLCHICINE 0.6 MG TAB ONE (06:56)
[2020-11-21 07:04] VITALS: TEMP 98.9
[2020-11-21 07:05] VITALS: BP 143/62; O2SAT 99
[2020-11-21 08:13] LABS: Blood Morphology Comment NOT SEEN (NOT SEEN); Platelet Estimate DECR
--- NOTE | 2020-11-21 09:14 | RAD REPORT ---
EXAM DESCRIPTION: RAD - Foot Right 3 View - 11/21/2020 5:28 am CLINICAL HISTORY: PAIN, no trauma history COMPARISON: No comparisons FINDINGS: No fracture, dislocation or periosteal reaction. No acute or destructive bone process seen . Soft tissue swelling is present the mid and distal right foot with no air or foreign body in the soft tissues. IMPRESSION: Right foot soft tissue swelling is evident. No acute bone or joint finding.
--- NOTE | 2020-11-21 09:15 | RAD REPORT ---
EXAM DESCRIPTION: RAD - Foot Left 3 View - 11/21/2020 5:28 am CLINICAL HISTORY: PAIN COMPARISON: No comparisons FINDINGS: No fracture, dislocation or periosteal reaction. No acute or destructive bony process. Soft tissue swelling of the mid and distal foot evident with no air or foreign body in the soft tissu es. IMPRESSION: Soft tissue swelling is evident without acute bone or joint finding.
== END 2020-11-21 06:58 | disposition home or self-care (01) ==
LOC: ER 04:30
DX: M79.672 Pain in left foot (principal); M79.671 Pain in right foot; N18.9 Chronic kidney disease, unspecified; Z94.2 Lung transplant status
CPT/HCPCS: 36415; 80048; 84550; 85025; 85652; 86140; 99284

== ENCOUNTER 2021-10-19 23:56 | Emergency (ER) | payer OTHER ==
--- NOTE | 2021-10-20 00:26 | ER ---
Nurse's Notes [facility] Name: Joel Desouza Age: 66 yrs Sex: Male : 1955 Arrival Date: 10/20/2021 Time: 00:01 Bed 13 Private MD: Diagnosis: Dental caries, unspecified;Fracture of tooth (traumatic) Presentation: 10/20 00:11 Chief complaint: Patient states: "I broke a tooth about a week ago, but it really tw5 started hurting tonight after I bit down on it. Tylenol isn't touching the pain at all.". Coronavirus screen: Vaccine status: Patient reports receiving the 2nd dose of the covid vaccine. Ebola Screen: Patient negative for fever greater than or equal to 101.5 degrees Fahrenheit, and additional compatible Ebola Virus Disease symptoms Patient denies exposure to infectious person. Patient denies travel to an Ebola-affected area in the 21 days before illness onset. Initial Sepsis Screen: Does the patient meet any 2 criteria? No. Patient's initial sepsis screen is negative. Does the patient have a suspected source of infection? No. Patient's initial sepsis screen is negative. Risk Assessment: Do you want to hurt yourself or someone else? Patient reports no desire to harm self or others. Onset of symptoms is unknown. 00:11 Method Of Arrival: Ambulatory tw5 00:11 Acuity: TESSIE 4 tw5 Triage Assessment: 00:12 General: Appears in no apparent distress. slender, Behavior is calm, cooperative, tw5 appropriate for age. Pain: Pain currently is 7 out of 10 on a pain scale. EENT: Reports pain in mouth. Historical: - PMHx: 00:12 Cirrhosis; CVID - Common Variable Immune Disorder; kidney failure; skin cancer; tw5 - PSHx: 00:12 bilateral lung transplant; tw5 - Immunization history:: Flu vaccine is up to date. - Social history:: Smoking status: Patient/guardian denies using tobacco, but has a distant history of tobacco abuse. - Family history:: not pertinent. - Hospitalizations: : No recent hospitalization is reported. Screenin:37 Abuse screen: Denies threats or abuse. Denies injuries from another. Nutritional kd3 screening: No deficits noted. Tuberculosis screening: No symptoms or risk factors identified. Fall Risk None identified. Assessment: 00:37 General: Appears in no apparent distress. Behavior is calm, cooperative. Neuro: Level kd3 of Consciousness is awake, alert, obeys commands, Oriented to person, place, time, situation. Respiratory: Airway is patent Trachea midline Respiratory effort is even, unlabored. GI: No signs and/or symptoms were reported involving the gastrointestinal system. : No signs and/or symptoms were reported regarding the genitourinary system. Vital Signs: 00:11 BP 192 / 71; Pulse 95; Resp 18; Temp 98.4; Pulse Ox 100% on R/A; Weight 52.16 kg; tw5 Height 5 ft. 6 in. (167.64 cm); Pain 7/10; 00:11 Body Mass Index 18.56 (52.16 kg, 167.64 cm) tw5 ED Course: 00:01 Patient arrived in ED. bp1 00:02 Dario Sanchez MD is Attending Physician. rn 00:12 Triage completed. tw5 00:12 Arm band placed on right wrist. tw5 00:22 Monica Brock RN is Primary Nurse. kd3 00:37 Patient has correct armband on for positive identification. kd3 00:37 No provider procedures requiring assistance completed. Patient did not have IV access kd3 during this emergency room visit. Administered Medications: 00:23 CANCELLED (Duplicate Order): Ketorolac 30 mg IM once rn 00:29 Drug: HYDROcodone-acetaminophen 5 mg-325 mg 1 tabs Route: PO; kd3 00:38 Follow up: Response: No adverse reaction kd3 00:31 CANCELLED (Physician Discretion): Ketorolac 15 mg IM once kd3 00:31 Drug: Ketorolac 30 mg Route: IM; Site: left deltoid; kd3 00:38 Follow up: Response: No adverse reaction kd3 Outcome: 00:26 Discharge ordered by . rn 00:37 Discharged to home kd3 00:37 Condition: stable 00:37 Discharge instructions given to patient, Instructed on discharge instructions, follow up and referral plans. Demonstrated understanding of instructions, follow-up care. 00:38 Patient left the ED. kd3 Signatures: Dario Sanchez MD MD rn [place]ia[place], Brittany bp1 Opal Bajwa tw5 Monica Brock RN RN kd3
[2021-10-20] MEDS ORDERED: KETOROLAC 30 MG/ML INJ ONE (00:27)
[2021-10-20] MEDS ORDERED: HYDROCODONE/APAP 5/325 MG TAB ONE (00:27)
--- NOTE | 2021-10-20 00:27 | EDPHYS ---
Physician Documentation [facility] Name: Joel Desouza Age: 66 yrs Sex: Male : 1955 Arrival Date: 10/20/2021 Time: 00:01 Bed 13 Private MD: ED Physician Dario Sanchez HPI: 10/20 00:22 This 66 yrs old Male presents to ER via Ambulatory with complaints of Toothache. rn 00:22 The patient presents with broken tooth/teeth. The problem is located in the right lower rn teeth. Onset: The symptoms/episode began/occurred 1 week(s) ago. Modifying factors: The symptoms are alleviated by nothing, the symptoms are aggravated by chewing. Severity of symptoms: At their worst the symptoms were moderate, in the emergency department the symptoms are unchanged. The patient has not experienced similar symptoms in the past. The patient has not recently seen a physician. Pt reports dental pain for about 1 week. States broke piece of tooth 1-2 weeks ago, has not gotten in with a dentist. No fever. No swelling. . Historical: - PMHx: 00:12 Cirrhosis; CVID - Common Variable Immune Disorder; kidney failure; skin cancer; tw5 - PSHx: 00:12 bilateral lung transplant; tw5 - Immunization history:: Flu vaccine is up to date. - Social history:: Smoking status: Patient/guardian denies using tobacco, but has a distant history of tobacco abuse. - Family history:: not pertinent. - Hospitalizations: : No recent hospitalization is reported. ROS: 00:23 Constitutional: Negative for fever, chills, and weight loss, ENT: + dental pain and rn injury Neck: Negative for injury, pain, and swelling, Neuro: Negative for headache, weakness, numbness, tingling, and seizure. Exam: 00:23 Constitutional: This is a well developed, well nourished patient who is awake, alert, rn and in no acute distress. Head/Face: Normocephalic, atraumatic. ENT: + poor dentition, exposed tooth anchor or post, + partially broken tooth lower right but does not appear to be acute. No swelling. No bleeding. No drainage. No evidence of infection. Vital Signs: 00:11 BP 192 / 71; Pulse 95; Resp 18; Temp 98.4; Pulse Ox 100% on R/A; Weight 52.16 kg; tw5 Height 5 ft. 6 in. (167.64 cm); Pain 7/10; 00:11 Body Mass Index 18.56 (52.16 kg, 167.64 cm) tw5 MDM: 00:02 Patient medically screened. rn 00:23 Differential diagnosis: dental caries, broken tooth. Data reviewed: vital signs, nurses rn notes, and as a result, I will discharge patient. Counseling: I had a detailed discussion with the patient and/or guardian regarding: the historical points, exam findings, and any diagnostic results supporting the discharge/admit diagnosis, the need for outpatient follow up, to return to the emergency department if symptoms worsen or persist or if there are any questions or concerns that arise at home. Response to treatment: the patient's symptoms have mildly improved after treatment, and as a result, I will discharge patient. ED course: Pt upset that cannot be prescribed hydrocodone or stronger, declines tramadol, will dc home with instructions to f/u with dentist tomorrow.. Administered Medications: 00:23 CANCELLED (Duplicate Order): Ketorolac 30 mg IM once rn 00:29 Drug: HYDROcodone-acetaminophen 5 mg-325 mg 1 tabs Route: PO; kd3 00:38 Follow up: Response: No adverse reaction kd3 00:31 CANCELLED (Physician Discretion): Ketorolac 15 mg IM once kd3 00:31 Drug: Ketorolac 30 mg Route: IM; Site: left deltoid; kd3 00:38 Follow up: Response: No adverse reaction kd3 Disposition Summary: 10/20/21 00:26 Discharge Ordered Location: Home rn Problem: an ongoing problem rn Symptoms: have improved rn Condition: Stable rn Diagnosis - Dental caries, unspecified rn - Fracture of tooth (traumatic) rn Followup: rn - With: Private Physician - When: As needed - Reason: Recheck today's complaints, Re-evaluation by your physician Discharge Instructions: - Discharge Summary Sheet rn - Dental Caries, Adult rn - Dental Pain rn Forms: - Medication Reconciliation Form rn - Thank You Letter rn - Antibiotic pattern grader cutter - Prescription Opioid Use rn Signatures: Dario Sanchez MD MD rn Wood, Tiffany tw5 Monica Brock RN RN kd3 Corrections: (The following items were deleted from the chart) 00:23 00:20 Ketorolac 30 mg IM once ordered. rn rn 00:24 00:23 Constitutional: Negative for fever, chills, and weight loss, ENT: + dental pain rn and injury Neuro: Negative for headache, weakness, numbness, tingling, and seizure, rn 00:31 00:23 Ketorolac 15 mg IM once ordered. rn kd3
--- OUTSIDE RECORDS SUMMARY | 2021-10-20 00:32 | XMS REPORT | Continuity of Care Document ---
:1955 Author Organization [facility] t Address [address] [place] [address] [address]. Erickson [address] [place] [address] Care Team Providers Name Role Phone Pcp, Does Not Have A Primary Care Physician BRODIE HERNANDEZ Attending Clinician Unavailable Joselin BRANNON Attending Clinician Unavailable Nestor Myers MD Attending Clinician JODIE Attending Clinician Unavailable Sumi POOLE Attending Clinician Unavailable Delonte DIAZ Attending Clinician Unavailable Provider, [facility] Attending Clinician Unavailable Bud HERCULES T Attending Clinician Unavailable SYL Attending Clinician Unavailable LISA CASTAÑEDA Attending Clinician Unavailable GEORGIANA EVERETT Attending Clinician Unavailable Michelle HOLDEN Attending Clinician Unavailable VIANNEY Attending Clinician Unavailable Michelle ONOFRE Attending Clinician Unavailable DOMI Attending Clinician Unavailable BRIANNE Attending Clinician Unavailable Christina FRIAS Attending Clinician Unavailable Rody WEST Attending Clinician Unavailable SARAH Attending Clinician Unavailable NESTOR MYERS Attending Clinician Unavailable Bree RODNEY Attending Clinician Unavailable SAMI Attending Clinician Unavailable ISAURO MÁRQUEZ Attending Clinician Unavailable Gordon Galvan MD Attending Clinician ROGELIO Attending Clinician Unavailable ANALI ANDREWS Attending Clinician Unavailable ELIAZAR CHANEY Attending Clinician Unavailable Robert HICKS Attending Clinician Unavailable GRETCHEN Attending Clinician Unavailable Severo SEE Attending Clinician Unavailable TO GREEN Attending Clinician Unavailable JOVAN Attending Clinician Unavailable NESTOR MYERS Attending Clinician Unavailable MARIELENA CONTRERAS Attending Clinician Unavailable John BAKER Attending Clinician Unavailable SARITA LYON Attending Clinician Unavailable CRISTINA JAIN Attending Clinician Unavailable IGGY URIAS Attending Clinician Unavailable ZAIDA LOVETT Attending Clinician Unavailable YARIEL Attending Clinician Unavailable FAITH MARTINEZ Attending Clinician Unavailable CLEMENT HERRERA Attending Clinician Unavailable Ez EASTMAN Attending Clinician Unavailable MYLES SERRANO Attending Clinician Unavailable Myles Serrano MD Attending Clinician KEN RAZA Attending Clinician Unavailable NOHEMY FERRER Attending Clinician Unavailable BRODIE HERNANDEZ Admitting Clinician Unavailable SERJIO MOLINA Admitting Clinician Unavailable MAURICIO Admitting Clinician Unavailable CATRACHITO BATISTA Admitting Clinician Unavailable CRISTINA JAIN Admitting Clinician Unavailable ELIAZAR CHANEY Admitting Clinician Unavailable Greg COORNEL Admitting Clinician Unavailable Severo SEE Admitting Clinician Unavailable ESME Admitting Clinician Unavailable Ez EASTMAN Admitting Clinician Unavailable MYLES SERRANO Admitting Clinician Unavailable IGGY URIAS Admitting Clinician Unavailable YARIEL Admitting Clinician Unavailable Payers Payer Name Policy Type Policy Number Effective Date Expiration Date Cassandra gould [facility] STAR [id number] 2018 PLAN 00:00:00 CDC REVIEW [id number] 2019 00:00:00 NORM CARE - [id number] GENERIC - NORM CARE [facility]-MEDICAID - [id number] 2017 2018 MEDICAID 00:00:00 00:00:00 [place] - [id number] FOR[facility]LY [facility] [id number] HMO-[employer] - BCBS COVID19 [facility] [id number] GENERIC PPO - [id number] GENERIC PAYOR [facility] [id number] 2020 2021 PLAN SSI 00:00:00 00:00:00 OPTUM NON-UNITED [id number] 2020 STAR 00:00:00 Problems Condition Condition Condition Status Onset Resolution Last Treating Co mments Source Name Details Category Date Date Treatment Clinician Date CKD CKD Disease Active 2019-07 [facility] (chronic (chronic 2-07 Colleg e kidney kidney 00:00: of disease) disease) 00 Medici n stage 5, stage 5, e GFR less GFR less than 15 than 15 ml/min ml/min (HCCode) (HCCode) Cirrhosis Cirrhosis Disease Active 2019-07 [facility] of liver of liver 2 Colleg e with with 00:00: of ascites ascites 00 Medicin (HCCode) (HCCode) e Lung Lung Disease Active 2019-07 [facility] transplant transplant 08-07 Co llege recipient recipient 00:00: of (HCCode) (HCCode) 00 Medici n e Chronic Chronic Disease Active [facility] diarrhea diarrhea 7-15 Colleg e 00:00: of 00 Medicin e Anxiety Anxiety Disease Active 2011-07 Last [facility] 0-16 Assessmen College 00:00: t & Plan: of 00 Formattin Medicin g of this e note might be different from the original. He remains quite anxious and is using his xanax twice daily, very low dose. He states the prednison e worsens this and he uses it consisten tly when on prednison e but once he tapers down he usually does not require daily dosing. 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 IVIG infusions continue. BRONCHIECT BRONCHIECT Disease Active Last [facility] ASIS ASIS Assessmen Gerty t & Plan: of Formattin Medicin g of this e note might be different from the original. Mr Desouza is much improved after his recent hospitali zation. He does not currently do any form of airway clearance . He has vest but does not use it. I reviewed appropria te use of acapella and asked him to incorpora te one treatment daily into this regimen. I [...] tolerate it. I will refer him to [facility] lung transplan t program for further evaluatio n, Dr. Trivedi will refer him to pulmonary rehab as this may improve his quality of life. I will see him back after he completes his lung transplan t visit. ATYPICAL ATYPICAL Disease Active [facility] r [facility] Co llege IAL IAL of INFECTION INFECTION Medi michaela e SINUSITIS, SINUSITIS, Disease Active [facility] CHRONIC College of Medicin e Allergies, Adverse Reactions, Alerts Allergy Allergy Status Severity Reaction(s) Onset Inactive Treating Comm ents Source Name Type Date Date Clinician NO KNOWN Allergy Active [facility] NO KNOWN Drug Active [facility] Class ity of [facility] Social History Social Habit Start Date Stop Date Quantity Comments Source Exposure to Not sure Juan R ritchie SARS-CoV-2 (event) of Med icine Alcohol intake 2021-08-27 2021-08-27 Current [facility] Col lege 00:00:00 00:00:00 non-drinker of of Medicin e alcohol (finding) Cigarettes smoked 2020-07-26 2020-07-26 [facility] current (pack per 00:00:00 00:00:00 of [facility] day) - Reported Cigarette 2020-07-26 2020-07-26 [facility] pack-years 00:00:00 00:00:00 of Medicine Tobacco use and 2020-07-26 2020-07-26 Never used [facility] Co llege exposure 00:00:00 00:00:00 of Medicine History of tobacco 2004-10-25 Cigarette Smoker [facility] use 00:00:00 of Medicine Sex [birth year] [facility] Co llege 00:00:00 00:00:00 of Medicine Smoking Status Start Date Stop Date Source Unknown if ever smoked [facility] Ex-smoker 2020-07-26 00:00:00 2020-07-26 00:00:00 [facility] ollege of Medicine Medications Ordered Filled Start Stop Current Ordering Indication Dosage Frequency Signature Comments Components Source Medication Medication Date Date Medication? Clinician (SIG) Name Name Multiple Yes 1{capsu Take 1 [facility] Vitamin 2-07 le} capsule by Harpreet ritchie (MULTIVITAM 09:21: mouth of IN ADULT 05 daily. Medicin OR) e folic acid Yes 1mg Take 1 mg [facility] (FOLVITE) 1 2-07 by mouth Deborah ege MG tablet 09:21: daily. of 05 Medicin e propranolol 2022-0 Yes 10mg Take 10 mg [facility] (INDERAL) 2-07 by mouth Colleg e 10 MG 09:18: daily. of tablet 28 Medicin e Ergocalcife 2021-0 Yes [id number] Take [facility] rol 2-07 50,000 College (ERGOCAL 09:18: Units by of OR) 28 mouth. Medicin e Ergocalcife 2020-07 Yes [id number] 1{capsu Take 1 [facility] rol 1.25 MG 2-06 le} capsule by Co llege ([id number] UT) 00:00: mouth of CAPS 00 every 7 Medicin days. e propranolol 2020-0 Yes 10mg Take 10 mg [facility] (INDERAL) 4-19 by mouth Colleg e 10 MG 09:58: daily. of tablet 01 Medicin e Ergocalcife 2020-0 Yes [id number] Take [facility] rol 4-19 50,000 College (ERGOCAL 09:58: Units by of OR) 01 mouth. Medicin e calcitRIOL 2020-0 Yes 1565 .25ug Take 1 [facility] (ROCALTROL) 3-29 capsule by Co llege 0.25 MCG 00:00: mouth of capsule 00 daily. Medicin Indication e s: Secondary Hyperparat hyroidism calcitRIOL 2020-0 Yes 1565 .25ug Take 1 [facility] (ROCALTROL) 3-29 capsule by Co llege 0.25 MCG 00:00: mouth of capsule 00 daily. Medicin Indication e s: Secondary Hyperparat hyroidism Ergocalcife 2020-0 Yes [id number] 1{capsu Take 1 [facility] rol 1.25 MG 2-08 le} capsule by Co llege ([id number] UT) 00:00: mouth of CAPS 00 every 7 Medicin days. e propranolol 2020-0 Yes 10mg Take 10 mg Juan R (INDERAL) 1-26 by mouth Colleg e 10 MG 15:47: daily. of tablet 08 Medicin e Ergocalcife 2020-0 Yes [id number] Take [facility] rol 1-26 50,000 College (ERGOCAL 15:47: Units by of OR) 08 mouth. Medicin e propranolol 2019- Yes 10mg Take 10 mg [facility] (INDERAL) 2-07 by mouth Colleg e 10 MG 15:26: daily. of tablet 54 Medicin e Ergocalcife 2019-07 Yes [id number] Take [facility] rol 2-07 50,000 College (ERGOCAL 15:26: Units by of OR) 54 mouth. Medicin e sevelamer 2019-07 Yes [id number] 800mg Take 1 Tab [facility] (RENAGEL) 1-02 by mouth 3 Deborah ege 800 MG 00:00: times of tablet 00 daily. Medicin e calcitRIOL 2019-07 Yes 1565 .25ug Take 1 Cap [facility] (ROCALTROL) 1-02 by mouth Deborah ege 0.25 MCG 00:00: daily. of capsule 00 Indication Medici n s: e Secondary Hyperparat hyroidism furosemide 2019-07 Yes [id number] 40mg Take 1 Tab [facility] (LASIX) 40 1-02 by mouth Colle ge MG tablet 00:00: daily as of 00 needed for Medicin Other (leg e swelling). sodium 2019-07 Yes [id number] 650mg Take 2 [facility] bicarbonate 1-02 Tabs by Colle ge 325 MG 00:00: mouth 3 of tablet 00 times Medicin daily. e Ergocalcife 2019-07 Yes [id number] 1{capsu Take 1 Cap [facility] rol 1.25 MG 1-02 le} by mouth Deborah ege ([id number] UT) 00:00: every 7 of CAPS 00 days. Medicin e sevelamer 2019-07 Yes [id number] 800mg Take 1 Tab [facility] (RENAGEL) 1-02 by mouth 3 Deborah ege 800 MG 00:00: times of tablet 00 daily. Medicin e furosemide 2019-07 Yes [id number] 40mg Take 1 Tab [facility] (LASIX) 40 1-02 by mouth Colle ge MG tablet 00:00: daily as of 00 needed for Medicin Other (leg e swelling). sodium 2019-07 Yes [id number] 650mg Take 2 [facility] bicarbonate 1-02 Tabs by Colle ge 325 MG 00:00: mouth 3 of tablet 00 times Medicin daily. e sevelamer 2019-07 Yes [id number] 800mg Take 1 Tab [facility] (RENAGEL) 1-02 by mouth 3 Deborah ege 800 MG 00:00: times of tablet 00 daily. Medicin e furosemide 2019-07 Yes [id number] 40mg Take 1 Tab [facility] (LASIX) 40 1-02 by mouth Colle ge MG tablet 00:00: daily as of 00 needed for Medicin Other (leg e swelling). sodium 2019-07 Yes [id number] 650mg Take 2 [facility] bicarbonate 1-02 Tabs by Colle ge 325 MG 00:00: mouth 3 of tablet 00 times Medicin daily. e sevelamer 2019-07 Yes [id number] 800mg Take 1 Tab [facility] (RENAGEL) -02 by mouth 3 Deborah ege 800 MG 00:00: times of tablet 00 daily. Medicin e calcitRIOL 2019-07 Yes 1565 .25ug Take 1 Cap [facility] (ROCALTROL) 02 by mouth Deborah ege 0.25 MCG 00:00: daily. of capsule 00 Indication Medici n s: e Secondary Hyperparat hyroidism furosemide 2019-07 Yes [id number] 40mg Take 1 Tab [facility] (LASIX) 40 07-02 by mouth Colle ge MG tablet 00:00: daily as of 00 needed for Medicin Other (leg e swelling). sodium 2019-07 Yes [id number] 650mg Take 2 [facility] bicarbonate 1-02 Tabs by Colle ge 325 MG 00:00: mouth 3 of tablet 00 times Medicin daily. e Ergocalcife 2019-07 Yes [id number] 1{capsu Take 1 Cap [facility] rol 1.25 MG -02 le} by mouth Deborah ege ([id number] UT) 00:00: every 7 of CAPS 00 days. Medicin e Pancrelipas Yes [id number] 2{capsu Take 2 [facility] e, 1-03 le} Caps by Gerty Lip-Prot-Am 00:00: mouth 3 of yl, 77509 00 times Medicin units CPEP daily e (with meals). And 1 cap with snacks. diphenoxyla Yes [id number] 1{tbl} Take 1 Tab [facility] te-atropine 1-03 by mouth 4 Co llege (LOMOTIL) 00:00: times of 2.5-0.025 00 daily as Medici n MG per needed for e tablet Diarrhea. Pancrelipas Yes [id number] 2{capsu Take 2 [facility] e, 1-03 le} Caps by Gerty Lip-Prot-Am 00:00: mouth 3 of yl, 74188 00 times Medicin units CPEP daily e (with meals). And 1 cap with snacks. diphenoxyla 2020-0 Yes [id number] 1{tbl} Take 1 Tab [facility] te-atropine 1-03 by mouth 4 Co llege (LOMOTIL) 00:00: times of 2.5-0.025 00 daily as Medici n MG per needed for e tablet Diarrhea. Pancrelipas 2020-0 Yes [id number] 2{capsu Take 2 [facility] e, 1-03 le} Caps by Gerty Lip-Prot-Am 00:00: mouth 3 of yl, 26804 00 times Medicin units CPEP daily e (with meals). And 1 cap with snacks. diphenoxyla 2020-0 Yes [id number] 1{tbl} Take 1 Tab [facility] te-atropine 1-03 by mouth 4 Co llege (LOMOTIL) 00:00: times of 2.5-0.025 00 daily as Medici n MG per needed for e tablet Diarrhea. Pancrelipas 2020-0 Yes [id number] 2{capsu Take 2 [facility] e, 1-03 le} Caps by Gerty Lip-Prot-Am 00:00: mouth 3 of yl, 56652 00 times Medicin units CPEP daily e (with meals). And 1 cap with snacks. diphenoxyla 2020-0 Yes [id number] 1{tbl} Take 1 Tab [facility] te-atropine 1-03 by mouth 4 Co llege (LOMOTIL) 00:00: times of 2.5-0.025 00 daily as Medici n MG per needed for e tablet Diarrhea. propranolol Yes 10mg Take 10 mg [facility] (INDERAL) 8-07 by mouth Colleg e 10 MG 18:32: daily. of tablet 30 Medicin e Na Yes [id number] [SUPREP] [facility] Sulfate-K 8-07 Take as Gerty Sulfate-Mg 00:00: directed. of Sulf 00 Medicin (SUPREP e BOWEL PREP KIT) 17.5-3.13-1 .6 GM/177ML SOLN Na Yes [id number] [SUPREP] [facility] Sulfate-K 8-07 Take as College Sulfate-Mg 00:00: directed. of Sulf 00 Medicin (SUPREP e BOWEL PREP KIT) 17.5-3.13-1 .6 GM/177ML SOLN Na Yes [id number] [SUPREP] [facility] Sulfate-K 8- Take as College Sulfate-Mg 00:00: directed. of Sulf 00 Medicin (SUPREP e BOWEL PREP KIT) 17.5-3.13-1 .6 GM/177ML SOLN Na 2018- Yes [id number] [SUPREP] [facility] Sulfate-K 8- Take as College Sulfate-Mg 00:00: directed. of Sulf 00 Medicin (SUPREP e BOWEL PREP KIT) 17.5-3.13-1 .6 GM/177ML SOLN Na 2018- Yes [id number] [SUPREP] [facility] Sulfate-K 8- Take as College Sulfate-Mg 00:00: directed. of Sulf 00 Medicin (SUPREP e BOWEL PREP KIT) 17.5-3.13-1 .6 GM/177ML SOLN metronidazo 2019- No [id number] 500mg Take 1 Tab [facility] le (FLAGYL) 02-04 08-15 by mouth Col lege 500 MG 00:00: 04:59 two times of tablet 00 :00 daily for Medicin 7 days. e tacrolimus 2019-0 Yes .5mg Take 0.5 [facility] (PROGRAF) 5-21 mg by College 0.5 MG 00:00: mouth two of capsule 00 times Medicin daily. e tacrolimus 2019-0 Yes .5mg Take 0.5 [facility] (PROGRAF) 5-21 mg by College 0.5 MG 00:00: mouth two of capsule 00 times Medicin daily. e tacrolimus 2019-0 Yes .5mg Take 0.5 [facility] (PROGRAF) 5-21 mg by College 0.5 MG 00:00: mouth two of capsule 00 times Medicin daily. e tacrolimus 2019-0 Yes .5mg Take 0.5 [place] [facility] (PROGRAF) 5-21 mg by College 0.5 MG 00:00: mouth two of capsule 00 times Medicin daily. e tacrolimus 2019-0 Yes .5mg Take 0.5 [facility] (PROGRAF) 5-21 mg by College 0.5 MG 00:00: mouth two of capsule 00 times Medicin daily. e omeprazole 2019-0 Yes 40mg Take 40 mg [facility] (PRILOSEC) 5-10 by mouth Colle ge 40 MG 00:00: daily. of capsule 00 Medicin e omeprazole 2019-0 Yes 40mg Take 40 mg [facility] (PRILOSEC) 5-10 by mouth Colle ge 40 MG 00:00: daily. of capsule 00 Medicin e omeprazole 2019-0 Yes 40mg Take 40 mg [facility] (PRILOSEC) 5-10 by mouth Colle ge 40 MG 00:00: daily. of capsule 00 Medicin e omeprazole 2019-0 Yes 40mg Take 40 mg [facility] (PRILOSEC) 5-10 by mouth Colle ge 40 MG 00:00: daily. of capsule 00 Medicin e omeprazole 2018-0 Yes 40mg Take 40 mg [facility] (PRILOSEC) 5-10 by mouth Colle ge 40 MG 00:00: daily. of capsule 00 Medicin e furosemide 2020- No 20mg Take 20 mg [facility] (LASIX) 20 2-05 02-06 by mouth Deborah ege MG tablet 00:00: 05:59 daily. of 00 :00 Medicin e Calcium 2017-07 2019- No 1500mg Take 1,500 [facility] Carbonate 2-10 12-11 mg by College (CALCIUM 00:00: 05:59 mouth of 600) 600 MG 00 :00 daily. Medici n TABS e azithromyci 2017-07 Yes 1{tbl} Take 1 Tab [facility] n 0-08 by mouth College (ZITHROMAX) 00:00: every of 250 MG 00 Saturday, Medicin tablet Saturday, e Saturday. azithromyci 2017- Yes 1{tbl} Take 1 Tab [facility] n 0-08 by mouth College (ZITHROMAX) 00:00: every of 250 MG 00 Saturday, Medicin tablet Saturday, e Saturday. azithromyci 2017- Yes 1{tbl} Take 1 Tab [facility] n 0-08 by mouth College (ZITHROMAX) 00:00: every of 250 MG 00 Saturday, Medicin tablet Saturday, e Saturday. azithromyci 2017- Yes 1{tbl} Take 1 Tab [facility] n 0-08 by mouth College (ZITHROMAX) 00:00: every of 250 MG Saturday, Medicin tablet Saturday, e Saturday. azithromyci 2017-07 Yes 1{tbl} Take 1 Tab [facility] n 0-08 by mouth College (ZITHROMAX) 00:00: every of 250 MG 00 Saturday, Medicin tablet Saturday, e Saturday. predniSONE 2011-07 Yes [id number] 10mg Take 1 Tab [facility] (DELTASONE) 1-05 by mouth Deborah ege 10 MG 00:00: daily. of tablet 00 Take as Medicin directed e predniSONE 2011-07 Yes [id number] 10mg Take 1 Tab [facility] (DELTASONE) 1-05 by mouth [facility]ge 10 MG 00:00: daily. of tablet 00 Take as Medicin directed e predniSONE 2011-07 Yes [id number] 10mg Take 1 Tab [facility] (DELTASONE) 1-05 by mouth Deborah ege 10 MG 00:00: daily. of tablet 00 Take as Medicin directed e predniSONE 2011-07 Yes [id number] 10mg Take 1 Tab [facility] (DELTASONE) 1-05 by mouth Deborah ege 10 MG 00:00: daily. of tablet 00 Take as Medicin directed e predniSONE 2011-07 Yes [id number] 10mg Take 1 Tab [facility] (DELTASONE) 1-05 by mouth Deborah ege 10 MG 00:00: daily. of tablet 00 Take as Medicin directed e albuterol Yes [id number] 1{puff} Inhale 1-2 [facility]FA (PROAIR 7-18 Puffs by Deborah ege HFA) 108 00:00: mouth of (90 base) 00 every 6 Medicin mcg/act hours as e inhaler needed for Wheezing (or shortness of breath). albuterol Yes [id number] 1{puff} Inhale 1-2 [facility] HFA (PROAIR 7-18 Puffs by Deborah LinkStorme HFA) 108 00:00: mouth of (90 base) 00 every 6 Medicin mcg/act hours as e inhaler needed for Wheezing (or shortness of breath). albuterol Yes [id number] 1{puff} Inhale 1-2 [facility]FA (PROAIR 7-18 Puffs by Deborah ege HFA) 108 00:00: mouth of (90 base) 00 every 6 Medicin mcg/act hours as e inhaler needed for Wheezing (or shortness of breath). albuterol Yes [id number] 1{puff} Inhale 1-2 [facility]FA (PROAIR 7-18 Puffs by Deborah ege HFA) 108 00:00: mouth of (90 base) 00 every 6 Medicin mcg/act hours as e inhaler needed for Wheezing (or shortness of breath). albuterol Yes [id number] 1{puff} Inhale 1-2 [facility] HFA (PROAIR 7-18 Puffs by Deborah ege HFA) 108 00:00: mouth of (90 base) 00 every 6 Medicin mcg/act hours as e inhaler needed for Wheezing (or shortness of breath). Immunizations Ordered Immunization Filled Immunization Date Status Commen ts Source Name Name Modernbree SARS-CoV-2 2020-10-07 Completed [facility] Vaccination 00:00:00 of Medicine Moderna SARS-CoV-2 2020-10-07 Completed [facility] Vaccination 00:00:00 of Medicine Moderna SARS-CoV-2 2020-08-31 Completed [facility] Vaccination 00:00:00 of Medicine Moderna SARS-CoV-2 2020-08-31 Completed [facility] Vaccination 00:00:00 of Medicine Td 2008-10-21 Completed [facility] 00:00:00 of Medicine Pneumococcal 2008-10-21 Completed [facility] Colle ge Conjugate 00:00:00 of Medicine Td 2008-10-21 Completed [facility] 00:00:00 of Medicine Pneumococcal 2008-10-21 Completed [facility] Colle ge Conjugate 00:00:00 of Medicine Td 2008-10-21 Completed [facility] 00:00:00 of Medicine Pneumococcal 2008-10-21 Completed [facility] Colle ge Conjugate 00:00:00 of Medicine Td 2008-10-21 Completed [facility] 00:00:00 of Medicine Pneumococcal 2008-10-21 Completed [facility] Colle ge Conjugate 00:00:00 of Medicine Td 2008-10-21 Completed [facility] 00:00:00 of Medicine Pneumococcal 2008-10-21 Completed [facility] Colle ge Conjugate 00:00:00 of Medicine Vital Signs Vital Name Observation Time Observation Value Comments Source WEIGHT 2020-02-23 00:00:00 51.801 kg Systolic blood 2021-08-07 15:21:00 116 mm[Hg] [facility] pressure Medicine Diastolic blood 2021-08-07 15:21:00 62 mm[Hg] [facility] of pressure Medicine Heart rate 2021-08-07 15:21:00 60 /min [facility] of [facility] Body height 2021-08-07 15:21:00 167.6 cm [facility] C ollege of Medicine Body weight 2021-08-07 15:21:00 55.792 kg [facility] C ollege of Medicine BMI 2021-08-07 15:21:00 19.85 kg/m2 [facility] WEIGHT 2021-02-28 10:08:00 58.559 kg WEIGHT 2021-02-28 10:08:00 58.559 kg WEIGHT 2021-02-13 12:20:00 57.108 kg WEIGHT 2020-11-09 20:00:00 54.477 kg HEIGHT 2020-11-09 20:00:00 165.1 cm WEIGHT 2020-11-09 20:00:00 54.477 kg HEIGHT 2020-11-09 20:00:00 165.1 cm Systolic blood 2020-10-17 14:53:00 124 mm[Hg] [facility] of pressure Medicine Diastolic blood 2020-10-17 14:53:00 65 mm[Hg] [facility] of pressure Medicine Heart rate 2020-10-17 14:53:00 65 /min [facility] C ollege of Medicine Body height 2020-10-17 14:53:00 167.6 cm [facility] C ollege of Medicine Body weight 2020-10-17 14:53:00 54.432 kg [facility] C ollege of Medicine BMI 2020-10-17 14:53:00 19.37 kg/m2 [facility] C ollege of Medicine Systolic blood 2020-10-17 14:53:00 124 mm[Hg] [facility] of pressure Medicine Diastolic blood 2020-10-17 14:53:00 65 mm[Hg] [facility] of pressure Medicine Heart rate 2020-10-17 14:53:00 65 /min [facility] C ollege of Medicine Body height 2020-10-17 14:53:00 167.6 cm [facility] C ollege of Medicine Body weight 2020-10-17 14:53:00 54.432 kg [facility] C ollege of Medicine BMI 2020-10-17 14:53:00 19.37 kg/m2 [facility] ollege of [facility] WEIGHT 2020-09-16 09:02:00 47.628 kg HEIGHT 2020-08-23 14:44:00 165.1 cm WEIGHT 2020-08-23 14:44:00 44.861 kg WEIGHT 2020-08-01 12:00:00 44.543 kg WEIGHT 2020-07-31 10:00:00 44.861 kg WEIGHT 2020-08-01 12:00:00 44.543 kg WEIGHT 2020-07-31 10:00:00 44.861 kg Systolic blood 2020-07-26 15:47:00 107 mm[Hg] [facility] pressure Medicine Diastolic blood 2020-07-26 15:47:00 61 mm[Hg] [facility] pressure Medicine Heart rate 2020-07-26 15:47:00 79 /min [facility] Systolic blood 2020-07-26 15:47:00 107 mm[Hg] [facility] Medicine Diastolic blood 2020-07-26 15:47:00 61 mm[Hg] [facility] Medicine Heart rate 2020-07-26 15:47:00 79 /min [facility] HEIGHT 2020-07-14 12:21:00 167.6 cm WEIGHT 2020-07-14 12:21:00 45.813 kg HEIGHT 2020-07-03 11:18:05 167.6 cm WEIGHT 2020-07-03 11:18:05 54.432 kg HEIGHT 2020-07-03 11:18:05 167.6 cm WEIGHT 2020-07-03 11:18:05 54.432 kg WEIGHT 2020-06-22 06:00:00 43.182 kg WEIGHT 2020-06-21 06:00:00 42.547 kg HEIGHT 2020-06-20 22:10:00 167.6 cm WEIGHT 2020-06-20 22:10:00 43.182 kg WEIGHT 2020-06-20 17:00:00 46.22 kg WEIGHT 2020-06-22 06:00:00 43.182 kg WEIGHT 2020-06-21 06:00:00 42.547 kg HEIGHT 2020-06-20 22:10:00 167.6 cm WEIGHT 2020-06-20 22:10:00 43.182 kg WEIGHT 2020-06-20 17:00:00 46.22 kg HEIGHT 2020-06-17 09:05:00 167.6 cm WEIGHT 2020-06-17 09:05:00 46.222 kg HEIGHT 2020-06-17 09:05:00 167.6 cm WEIGHT 2020-06-17 09:05:00 46.222 kg Systolic blood 2020-06-06 15:21:00 91 mm[Hg] [facility] pressure Medicine Diastolic blood 2020-06-06 15:21:00 62 mm[Hg] [facility] Medicine Heart rate 2020-06-06 15:21:00 84 /min [facility] Respiratory rate 2020-06-06 15:21:00 16 /min [facility] Body height 2020-06-06 15:21:00 167.6 cm [facility] Body weight 2020-06-06 15:21:00 52.527 kg [facility] of Medicine BMI 2020-06-06 15:21:00 18.69 kg/m2 [facility] Systolic blood 2020-06-06 15:21:00 91 mm[Hg] [facility] Medicine Diastolic blood 2020-06-06 15:21:00 62 mm[Hg] [facility] Medicine Heart rate 2020-06-06 15:21:00 84 /min [facility] Respiratory rate 2020-06-06 15:21:00 16 /min [facility] Body height 2020-06-06 15:21:00 167.6 cm [facility] Body weight 2020-06-06 15:21:00 52.527 kg [facility] BMI 2020-06-06 15:21:00 18.69 kg/m2 [facility] HEIGHT 2020-05-20 09:22:00 175.3 cm WEIGHT 2020-05-20 09:22:00 49.487 kg WEIGHT 2020-04-28 08:55:00 46.8 kg HEIGHT 2020-04-27 05:47:00 167.6 cm WEIGHT 2020-04-27 05:47:00 49.896 kg HEIGHT 2020-04-26 05:25:00 167.6 cm WEIGHT 2020-04-26 05:25:00 49.896 kg HEIGHT 2020-04-24 16:55:09 167.6 cm WEIGHT 2020-04-24 16:55:09 49.896 kg WEIGHT 2020-04-28 08:55:00 46.8 kg HEIGHT 2020-04-27 05:47:00 167.6 cm WEIGHT 2020-04-27 05:47:00 49.896 kg HEIGHT 2020-04-26 05:25:00 167.6 cm WEIGHT 2020-04-26 05:25:00 49.896 kg HEIGHT 2020-04-24 16:55:09 167.6 cm WEIGHT 2020-04-24 16:55:09 49.896 kg HEIGHT 2020-04-19 14:15:00 167.6 cm WEIGHT 2020-04-19 14:15:00 49.487 kg HEIGHT 2020-04-06 00:00:00 168.7 cm WEIGHT 2020-04-06 00:00:00 49.986 kg HEIGHT 2020-04-06 00:00:00 168.7 cm WEIGHT 2020-04-06 00:00:00 49.986 kg HEIGHT 2020-03-09 00:00:00 167.6 cm WEIGHT 2020-03-09 00:00:00 49.17 kg HEIGHT 2020-03-09 00:00:00 167.6 cm WEIGHT 2020-03-09 00:00:00 49.17 kg WEIGHT 2020-02-23 00:00:00 54.976 kg WEIGHT 2020-02-23 00:00:00 51.801 kg WEIGHT 2020-02-23 00:00:00 54.976 kg HEIGHT 2019-12-10 00:00:00 167.6 cm WEIGHT 2019-12-10 00:00:00 52.164 kg HEIGHT 2019-12-10 00:00:00 167.6 cm WEIGHT 2019-12-10 00:00:00 52.164 kg Systolic blood 2019-02-04 18:32:00 130 mm[Hg] [facility] pressure Medicine Diastolic blood 2019-02-04 18:32:00 75 mm[Hg] [facility] pressure Medicine Heart rate 2019-02-04 18:32:00 61 /min [facility] Body temperature 2019-02-04 18:32:00 36.89 Saray [facility] Respiratory rate 2019-02-04 18:32:00 16 /min [facility] Body height 2019-02-04 18:32:00 167.6 cm [facility] Body weight 2019-02-04 18:32:00 52.345 kg [facility] BMI 2019-02-04 18:32:00 18.63 kg/m2 [facility] Systolic blood 2019-02-04 18:32:00 130 mm[Hg] [facility] Diastolic blood 2019-02-04 18:32:00 75 mm[Hg] [facility] Heart rate 2019-02-04 18:32:00 61 /min [facility] Body temperature 2019-02-04 18:32:00 36.89 Saray [facility] Respiratory rate 2019-02-04 18:32:00 16 /min [facility] Body height 2019-02-04 18:32:00 167.6 cm [facility] Body weight 2019-02-04 18:32:00 52.345 kg [facility] BMI 2019-02-04 18:32:00 18.63 kg/m2 [facility] Procedures Procedure Date / Time Performed Performing Clinician [facility] BASIC METABOLIC PANEL 2021-08-07 16:18:00 Lucia [facility] ALBUMIN 2021-08-07 16:18:00 Lucia [facility] FERRITIN 2021-08-07 16:18:00 Lucia, [facility] PTH INTACT 2021-08-07 16:18:00 Lucia, [facility] PHOSPHORUS 2021-08-07 16:18:00 Lucia, [facility] CBC W/O DIFF W PLT 2021-08-07 16:18:00 Lucia [facility] VITAMIN D 25 HYDROXY 2021-08-07 16:18:00 Lucia [facility] IRON+TIBC+%SAT 2021-08-07 16:18:00 Lucia [facility] (SCN) LAB 2021-08-07 14:33:16 Lucia [facility] BASIC METABOLIC PANEL 2020-10-17 15:33:00 Lucia, [facility] ALBUMIN 2020-10-17 15:33:00 Lucia, [facility] PTH INTACT 2020-10-17 15:33:00 Lucia, [facility] PHOSPHORUS 2020-10-17 15:33:00 Lucia, [facility] CBC W/O DIFF W PLT 2020-10-17 15:33:00 Lucia, [facility] VITAMIN D 25 HYDROXY 2020-10-17 15:33:00 Lucia [facility] IRON+TIBC+%SAT 2020-10-17 15:33:00 Lucia, [facility] Plan of Care Planned Activity Planned Date Details Comments Source Future Scheduled 2021-08-27 ZOSTER VACCINE (1 of [facility] Test 19:33:16 2) [code = ZOSTER of Medicin e VACCINE (1 of 2)] Future Scheduled 2021-08-27 Pneumococcal [facility] Deborah [employer]ge Test 19:33:16 Combined (1 of 2 - of Medici ne PPSV23) [code = Pneumococcal Combined (1 of 2 - PPSV23)] Future Scheduled 2021-08-27 TETANUS SHOT (ADULT) [facility] Test 19:33:16 [code = TETANUS SHOT of Medi cine (ADULT)] Future Scheduled 2021-08-27 COVID-19 Vaccine (3 [facility] or Gerty Test 19:33:16 - Moderna risk of Medicine 4-dose series) [code = COVID-19 Vaccine (3 - Moderna risk 4-dose series)] Future Scheduled 2021-08-27 FLU VACCINE > 6 [facility] C [facility]lege Test 19:33:16 MONTHS [code = FLU of Medici ne VACCINE > 6 MONTHS] Future Scheduled 2021-08-27 Screening for [facility] [employer] Test 19:33:16 malignant neoplasm of Medici ne of colon (procedure) [code = 882995032] Future Scheduled 2021-08-07 CALCIUM [code = Ordered: [facility] C [facility]lege Test 09:50:03 36295-5] 08/07/2021 of Medicine Future Scheduled 2020-11-06 ZOSTER VACCINE (1 of [employer] Test 15:00:30 2) [code = ZOSTER of Medicin e VACCINE (1 of 2)] Future Scheduled 2020-11-06 TETANUS SHOT (ADULT) [employer] Test 15:00:30 [code = TETANUS SHOT of Medi cine (ADULT)] Future Scheduled 2020-11-06 FLU VACCINE > 6 [facility] C [facility]lege Test 15:00:30 MONTHS [code = FLU of Medici ne VACCINE > 6 MONTHS] Future Scheduled 2020-11-06 Screening for [facility] Test 15:00:30 malignant neoplasm of Medici ne of colon (procedure) [code = 339432630] Future Scheduled 2020-10-17 CALCIUM [code = Ordered: [facility] C [facility]lege Test 10:19:16 28780-0] 10/17/2020 of Medicine Future Scheduled COVID-19 Vaccine [facility] College Test Evaluation [code = of Medici ne COVID-19 Vaccine Evaluation] Future Scheduled ZOSTER VACCINE (1 of [employer] Test 2) [code = ZOSTER of Medicin e VACCINE (1 of 2)] Future Scheduled TETANUS SHOT (ADULT) [employer] Test [code = TETANUS SHOT of Medi cine (ADULT)] Future Scheduled FLU VACCINE > 6 [facility] [employer] Test MONTHS [code = FLU of Medici ne VACCINE > 6 MONTHS] Future Scheduled COLON CANCER [facility] [employer] Test SCREENING: of Medicine COLONOSCOPY [code = COLON CANCER SCREENING: COLONOSCOPY] Future Scheduled TETANUS SHOT (ADULT) [employer] Test [code = TETANUS SHOT of Medi cine (ADULT)] Future Scheduled FLU VACCINE > 6 [facility] [employer] Test MONTHS [code = FLU of Medici ne VACCINE > 6 MONTHS] Future Scheduled PREVNAR >= 65 [employer] Test (PCV13) [code = of Medicine PREVNAR >= 65 (PCV13)] Future Scheduled COLON CANCER [facility] [employer] Test SCREENING: of Medicine COLONOSCOPY [code = COLON CANCER SCREENING: COLONOSCOPY] Future Scheduled BASIC METABOLIC Ordered: [facility]lege Test PANEL [code = 06/06/2020 of Medicine 74438-0] Future Scheduled CBC W/O DIFF W PLT Ordered: [facility] r College Test [code = 6690-2] 06/06/2020 of Medicine Future Scheduled BMI FOLLOW UP PLAN [employer] Test [code = BMI FOLLOW of Medici ne UP PLAN] Future Scheduled ZOSTER VACCINE (1 of [employer] Test 2) [code = ZOSTER of Medicin e VACCINE (1 of 2)] Future Scheduled TETANUS SHOT (ADULT) [employer] Test [code = TETANUS SHOT of Medi cine (ADULT)] Future Scheduled FLU VACCINE > 6 [facility] C ollege Test MONTHS [code = FLU of Medici ne VACCINE > 6 MONTHS] Future Scheduled COLON CANCER [facility] [employer] Test SCREENING: of Medicine COLONOSCOPY [code = COLON CANCER SCREENING: COLONOSCOPY] Future Scheduled COLONOSCOPY W MAC GI 1 Occurrences [employer] Test DEPT [code = 38761] starting of Medic ine 02/04/2019 until 08/07/2019 Encounters Start End Encounter Admission Attending Care Care Encounter Source Date/Time Date/Time Type Type Clinicians Facility Department ID 2020-02-23 Inpatient AGUSTIN AYALA Transplant [id number] [facility] 16:04:00 TEODORA 2021-08-16 2021-08-16 Outpatient CHESTER BRANNON [facility] [id number] [facility] 00:00:00 00:00:00 NAVA 2021-08-16 2021-08-16 [facility] [id number] [facility] 00:00:00 00:00:00 2021-08-07 2021-08-07 Office Roman Myers [id number] [id number] [facility] 09:00:00 10:48:05 Visit Nestor AMBULATOR [id number] College [place] Y 0.2.7.2.686 of [id number] Medi michaela 335 e 2021-05-18 2021-05-18 Outpatient [facility] [id number] [facility] 12:31:58 23:59:00 Colleg e of Medicin e 2021-05-05 2021-05-05 Outpatient JODIE, [facility] [id number] [place] 13:22:20 15:04:33 [facility]LEX[facility] 2021-04-20 2021-04-20 Outpatient BCM BCM [id number] [facility] 13:12:08 23:59:00 Colleg e of Medicin e 2021-03-27 2021-03-27 Outpatient ZULEMA, [facility] [id number] [place] 14:08[facility]39 [facility] 2021-[facility] 2021-03-21 Outpatient BCM BC [id number] [facility] 13:47:09 23:59:00 Colleg e of Medicin e 2021-03-17 2021-03-17 Outpatient AMARA, [facility] [id number] [place] 10:33:46 14:07:00 [facility] 2021-03-17 2021-03-17 [facility] [id number] [place] 00:00:00 00:00:00 [facility] 2021-03-17 2021-03-17 Letter Fouzia, [facility] [id number] Univers 00:00:00 00:00:00 (Out) [facility] 350.1.13.10 it y of Urgent Care [place] 4.2.7.2.686 [facility]?Blea [phone] [address] Medical Office Building 2021-03-16 2021-03-16 Letter RAUL Farrell 1.2.840.[id number] [place] [address] 00:00:00 00:00:00 (Out) Evita DURANT 350.1.13.10 it y of HOSPITAL 4.2.7.2.686 Parish as [phone] [address] 2021-03-15 2021-03-[address] [facility] [id number] Univers 16:00:00 16:00:00 RUPINDER velazquez [facility] 2021-03-14 2021-03-14 Outpatient MARAH CASTAÑEDA [facility] [id number] [facility] 00:00:00 00:00:00 2021-03-14 2021-03-14 Outpatient MARAH CASTAÑEDA [facility] [id number] [facility] 00:00:00 00:00:00 2021-03-14 2021-03-14 Outpatient MARAH CASTAÑEDA [facility] [id number] [facility] 00:00:00 00:00:00 2021-03-14 2021-03-14 Outpatient MARAH DUTTAH [facility] [id number] [facility] 00:00:00 00:00:00 2021-03-14 2021-03-14 Outpatient MARGUERITE [facility] [id number] [facility] 00:00:00 00:00:00 [facility] 2021-03-10 2021-03-10 [facility] [id number] [place] 00:00:00 00:00:00 [facility] 2021-02-28 2021-02-28 Outpatient MARAH CASTAÑEDA [facility] [id number] [facility] 00:00:00 00:00:00 2021-02-28 2021-02-28 Outpatient MARGUERITE [facility] [id number] [facility] 00:00:00 00:00:00 [facility] 2021-02-28 2021-02-28 Outpatient MARAH DUTTA [facility] [id number] [facility] 00:00:00 00:00:00 2021-02-28 2021-02-28 Outpatient MARAH CASTAÑEDA [facility] [id number] [facility] 00:00:00 00:00:00 2021-02-28 2021-02-28 Outpatient MARGUERITE [facility] [id number] [facility] 00:00:00 00:00:00 [facility] 2021-02-28 2021-02-28 Outpatient MARAH DUTTA [facility] [id number] [facility] 00:00:00 00:00:00 2021-02-21 2021-02-21 Outpatient [facility] [id number] [facility] 13:40:55 23:59:00 Bernadette 2021-02-14 2021-02-14 Outpatient SLEH [facility] [id number] [facility] 00:00:00 00:00:00 2021-02-14 2021-02-14 Outpatient CHESTER SLELuz [facility] [id number] [facility] 00:00:00 00:00:00 2021-02-14 2021-02-14 Outpatient MARGUERITE [facility] [id number] [facility] 00:00:00 00:00:00 TRUMAN 2021-02-13 2021-02-13 Outpatient EL [facility] [id number] [facility] 00:00:00 00:00:00 2021-02-10 2021-02-10 Outpatient [facility] [id number] [place] 00:00:00 00:00:00 Health 2021-02-10 2021-02-10 Outpatient [facility] [id number] [place] 00:00:00 00:00:00 Health 2021-02-02 2021-02-02 [facility] [id number] [place] 00:00:00 00:00:00 [facility] 2021-02-02 2021-02-02 Outpatient [facility] [id number] [place] 00:00:00 00:00:00 Health 2021-02-01 2021-02-01 Outpatient [facility] [id number] [place] 00:00:00 00:00:00 [facility] 2021-01-31 2021-01-31 Outpatient CHESTER HOLDEN [facility] [id number] [facility] 00:00:00 00:00:00 JERILYN 2021-01-24 2021-01-24 Outpatient [facility] [id number] [facility] 13:25:47 23:59:00 Bernadette 2021-01-24 2021-01-24 Outpatient EL [facility] [id number] [facility] 00:00:00 00:00:00 2021-01-23 2021-01-23 Outpatient FAITH, MARIZOL [facility] [id number] Jhonatan 12:55:10 15:19:16 Health 2021-01-23 2021-01-23 Outpatient [facility] [id number] [place] 00:00:00 00:00:00 Health 2021-01-23 2021-01-23 Outpatient ZULEMA, [facility] [id number] [place] 00:00:00 00:00:00 [facility] 2021-01-18 2021-01-18 Outpatient [facility] [id number] [place] 11:05:12 11:39:09 [facility] 2021-01-16 2021-01-16 Outpatient AGUSTIN NASCIMENTO SLE [id number] SLE[facility] 00:00:00 00:00:00 JERILYN 2021-01-06 2021-01-06 Outpatient BEVERLY DURON [facility] [id number] [place] 07:00:00 14:50:00 Health 2021-01-06 2021-01-06 Outpatient [facility] [id number] [place] 00:00:00 00:00:00 Health 2021-01-05 2021-01-05 Outpatient SLEH SLE [id number] SLE 00:00:00 00:00:00 2020-12-30 2020-12-30 Outpatient [facility] [id number] [place] 07:14:23 10:09:43 [facility] 2020-12-30 2020-12-30 Outpatient [facility] [id number] [place] 00:00:00 00:00:00 [facility] 2020-12-29 2020-12-29 Outpatient AGUSTIN NASCIMENTO SLE [id number] SLE 00:00:00 00:00:00 JERILYN 2020-12-27 2020-12-27 Outpatient [facility] [id number] [facility] 13:08:48 23:59:00 [facility] 2020-12-27 2020-12-27 Outpatient BEVERLY DURON [facility] [id number] [place] 00:00:00 00:00:00 [facility] 2020-12-26 2020-12-26 Outpatient BRETT [facility] [id number] [place] 09:46:32 10:22:52 , [facility] 2020-11-30 2020-11-30 Outpatient [facility] [id number] [place] 09:54:29 10:55:52 [facility] 2020-11-24 2020-11-24 Outpatient EL SLE SLE [id number] SLE 00:00:00 00:00:00 2020-11-16 2020-11-16 Outpatient [facility] [id number] [place] 00:00:00 00:00:00 Health 2020-11-14 2020-11-14 Outpatient [facility] [id number] [place] 00:00:00 00:00:00 Health 2020-11-09 2020-11-09 Outpatient AGUSTIN AYALA [facility] [id number] SLE[facility] 19:50:00 19:50:00 TEODORA 2020-10-17 2020-10-17 Office Roman Myers 1.2.840.114 [id number] 09:47:48 16:38:46 Visit Nestor AMBULATOR 350.1.13.21 [place] Y 0.2.7.2.686 [id number] 2020-10-17 2020-10-17 Office ROMAN MYERS 1.2.840.114 [id number] [facility] 09:47:48 16:38:46 Visit AMBULATOR 350.1.13.21 College Y 0.2.7.2.686 of [id number] [facility] 335 e 2020-10-12 2020-10-12 Outpatient [facility] [id number] [place] 14:56:37 17:12:47 [facility] 2020-10-12 2020-10-12 Outpatient [facility] [id number] [place] 00:00:00 00:00:00 [facility] 2020-09-25 2020-09-25 Emergency ER SLE Emergency [id number] [facility] 01:38:00 01:38:00 2020-09-16 2020-09-16 Outpatient EL [facility] [id number] SLE 00:00:00 00:00:00 2020-08-23 2020-08-23 Outpatient EL [facility] [id number] SLE 00:00:00 00:00:00 2020-08-02 2020-08-02 Outpatient EL [facility] [id number] SLE 00:00:00 00:00:00 2020-07-29 2020-07-29 Emergency ER SLE Emergency [id number] SLE 10:01:00 10:01:00 2020-07-26 2020-07-26 Office MAGI Galvan 1.2.840.114 [id number] 09:42:55 10:28:31 Visit Rosi AMBULATOR 350.1.13.21 Jory-Kathie Y 0.2.7.2.686 [id number] 2020-07-26 2020-07-26 Office MAGI Galvan 1.2.840.114 [id number] [facility] 09:42:55 10:28:31 Visit Rosi AMBULATOR 350.1.13.21 Gerty Jory-Kathie Y 0.2.7.2.686 [id number] [facility] 800 e 2020-07-14 2020-07-14 Outpatient EL [facility] [id number] [facility] 00:00:00 00:00:00 2020-07-06 2020-07-06 Outpatient EL [facility] [id number] [facility] 00:00:00 00:00:00 2020-07-03 2020-07-03 Emergency ER SLE Emergency [id number] [facility] 11:03:00 11:03:00 2020-06-20 2020-06-20 Emergency ER SLE Emergency [id number] [facility] 17:49:00 17:49:00 2020-06-17 2020-06-17 Outpatient SLEH [facility] [id number] [facility] 00:00:00 00:00:00 2020-06-17 2020-06-17 Outpatient CHESTER CHANEY [facility] [id number] [facility]H 00:00:00 00:00:00 DAVE 2020-06-10 2020-06-10 Outpatient CHESTER CHANEY SLELuz [facility]H [id number] SLEH 00:00:00 00:00:00 DAVE 2020-06-08 2020-06-08 Outpatient RITU [facility] SLE[facility] [id number] [facility] 00:00:00 00:00:00 DAVE 2020-06-07 2020-06-07 Outpatient CHESTER CHANEY [facility] SLEH [id number] [facility] 00:00:00 00:00:00 2020-06-06 2020-06-06 Office Roman Myers [facility] 1.2.840.114 [id number] 09:14:41 10:09:35 Visit Nestor AMBULATOR 350.1.13.21 [place] Y 0.2.7.2.686 [id number] [facility] 2020-06-06 2020-06-06 Office Roman Myers 1.2.840.114 [id number] [facility] 09:14:41 10:09:35 Visit Nestor AMBULATOR 350.1.13.21 Gerty [place] Y 0.2.7.2.686 [id number] [facility] 335 e 2020-05-20 2020-05-20 Outpatient EL FABIOLA, SLEH SLEH [id number] SLEH 00:00:00 00:00:00 RISE 2020-05-13 2020-05-13 Outpatient EL SLEH SLEH [id number] SLEH 00:00:00 00:00:00 2020-04-24 2020-04-24 Emergency ER SLEH Emergency [id number] [facility]H 16:46:00 16:46:00 2020-04-19 2020-04-19 Outpatient CHRISTIANO SEE [facility]H SLEH [id number] SLEH 00:00:00 00:00:00 2020-04-19 2020-04-19 Outpatient EL PETER, SLEH SLEH [id number] SLEH 00:00:00 00:00:00 AARON 2020-04-19 2020-04-19 Outpatient EL SLEH SLEH [id number] [facility]H 00:00:00 00:00:00 2020-04-19 2020-04-19 Outpatient EL JOVAN, SLEH SLEH [id number] SLEH 00:00:00 00:00:00 PRATEEK 2020-04-15 2020-04-15 Outpatient CHRISTIANO SEE [facility]H SLEH [id number] SLEH 00:00:00 00:00:00 2020-04-15 2020-04-15 Outpatient EL PETER, SLEH SLEH [id number] [facility]H 00:00:00 00:00:00 AARON 2020-04-14 2020-04-14 Outpatient EL PETER, SLEH SLEH [id number] SLEH 00:00:00 00:00:00 AARON 2020-04-07 2020-04-07 Outpatient EL PETER, SLEH SLEH [id number] SLEH 00:00:00 00:00:00 AARON 2020-04-07 2020-04-07 Outpatient PETER, SLEH SLEH [id number] SLEH 00:00:00 00:00:00 AARON 2020-04-07 2020-04-07 Outpatient PETER, SLEH SLEH [id number] SLEH 00:00:00 00:00:00 AARON 2020-04-06 2020-04-06 Outpatient SLEH SLEH [id number] SLEH 00:00:00 00:00:00 2020-04-06 2020-04-06 Outpatient PETER [facility] SLEH [id number] SLEH 00:00:00 00:00:00 AARON 2020-04-06 2020-04-06 Outpatient PETER, SLEH SLEH [id number] [facility] 00:00:00 00:00:00 AARON 2020-04-06 2020-04-06 Outpatient EL PETER [facility] SLEH [id number] [facility] 00:00:00 00:00:00 AARON 2020-04-06 2020-04-06 Outpatient SLEH SLEH [id number] [facility] 00:00:00 00:00:00 2020-04-06 2020-04-06 Outpatient SLEH SLEH [id number] [facility]H 00:00:00 00:00:00 2020-04-06 2020-04-06 Outpatient SLEH SLEH [id number] [facility]H 00:00:00 00:00:00 2020-04-06 2020-04-06 Outpatient SLEH SLEH [id number] [facility]H 00:00:00 00:00:00 2020-04-06 2020-04-06 Outpatient SLEH SLEH [id number] [facility]H 00:00:00 00:00:00 2020-04-06 2020-04-06 Outpatient SLEH SLEH [id number] [facility]H 00:00:00 00:00:00 2020-03-09 2020-03-09 Outpatient EL SLEH [facility]H [id number] [facility] 00:00:00 00:00:00 2020-02-29 2020-02-29 Outpatient EL SLEH SLEH [id number] [facility]H 00:00:00 00:00:00 2020-02-23 2020-02-23 Outpatient EL SLEH SLEH [id number] [facility]H 00:00:00 00:00:00 2020-02-23 2020-02-23 Outpatient MARAH CASTAÑEDA [facility] SLEH [id number] SLEH 00:00:00 00:00:00 2020-02-23 2020-02-23 Outpatient SLEH SLEH [id number] SLEH 00:00:00 00:00:00 2020-02-23 2020-02-23 Outpatient EL SLEH [facility]H [id number] SLEH 00:00:00 00:00:00 2020-02-03 2020-02-03 Outpatient EL SLEH SLEH [id number] [facility] 00:00:00 00:00:00 2020-01-26 2020-01-26 Outpatient EL [facility]H [facility] [id number] [facility]H 00:00:00 00:00:00 2020-01-05 2020-01-05 Outpatient EL SLEH SLEH [id number] SLEH 00:00:00 00:00:00 2019-12-31 2019-12-31 Outpatient EL [facility]H [id number] [facility] 00:00:00 00:00:00 2019-12-14 2019-12-14 Outpatient CONTRERAS, SLEH SLEH [id number] [facility]H 00:00:00 00:00:00 PARXANN 2019-12-10 2019-12-10 Emergency ER [facility] Emergency [id number] [facility] 18:43:00 18:43:00 2019-12-01 2019-12-01 Outpatient [facility] [id number] [facility] 00:00:00 00:00:00 2019-11-05 2019-11-05 Outpatient [place] [facility] [id number] [facility] 08:39:08 08:39:08 AARON 2019-11-05 2019-11-05 Outpatient [facility] [id number] [facility] 00:00:00 00:00:00 [id number] 2019-10-05 2019-10-05 Outpatient [facility] [id number] [facility] 00:00:00 00:00:00 [id number] 2019-09-17 2019-09-17 Outpatient [facility] [id number] [facility] 00:00:00 00:00:00 [id number] 2019-09-09 2019-09-09 Outpatient [facility] [id number] [facility] 00:00:00 00:00:00 [id number] 2019-09-02 2019-09-02 Outpatient CHRISTIANO CABALLERO [facility] [id number] SLE 00:00:00 00:00:00 2019-08-31 2019-08-31 Outpatient SLE SLE [id number] [facility] 00:00:00 00:00:00 [id number] 2019-08-26 2019-08-26 Outpatient CHRISTIANO CABALLERO [facility] [id number] SLE 00:00:00 00:00:00 2019-06-03 2019-06-03 Outpatient [facility] [id number] SLE 00:00:00 00:00:00 2019-02-04 2019-02-04 Office MAGI Serrano [id number] 13:15:13 13:45:13 Visit Reg AMBULATOR [id number] Shultz Y [id number] [facility] 2019-02-04 2019-02-04 Office MAGI Serrano [id number] [facility] 13:15:13 13:45:13 Visit Reg AMBULATOR [id number] Gerty Shultz Y [id number] of [id number] [facility] 325 e Results Test Description Test Time Test Comments Results Result Sour e Comments MR, ABDOMEN, WITH 2021-09-01 Referring: 12:35:00 Yary Eastman/ KINA Unlisted Reason for Exam MELODY [facility] RAY - - Click Yes and [facility]: Enter Reason DEOTANA WHEELER Below->Yes MELLY AGUILAR: Unlisted Reason 1955 for Exam->liver Sex: protocol, M cirrhosis, liver lesions, pancreas *FINAL REPORT lesion, s/p PATIENT ID: TIM, MILAN [id number] MRI of the screening abdomen with and without contrast Clinical History: Unlisted Reason for Examliver protocol, cirrhosis, liver lesions, pancreas lesion, s/p TIPS, HCC screening Technique: Multiplanar and multisequence MR images of the abdomen are obtained before and after intravenous contrast administration. Contrast is administered to evaluate neoplasm and vasculature. Comparison: January 31, 2021 Discussion: There are trace bilateral pleural effusions. Liver is cirrhotic. There is no biliary ductal dilatation. Multiple stones are noted in the gallbladder. Status post TIPS, the stent is patent. The main portal vein measures 16 mm in diameter. No suspicious liver mass is identified. There is a small cyst in the inferior right lobe. Spleen is enlarged and measures 16 cm sagittally. In the pancreatic head, there is a stable 1 cm unilocular cystic lesion. No solid component or abnormal enhancement is identified. Main pancreatic duct is normal in caliber. Adrenal glands are normal. Kidneys demonstrate no hydronephrosis, or mass. There is trace perihepatic ascites. No adenopathy. Perisplenic varices are noted. Visualized bowel is unremarkable. No suspicious bony lesion. Impression: Cirrhosis and splenomegaly. Patent TIPS. Cholelithiasis. No suspicious liver mass. 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 Suggest continued surveillance. Trace bilateral pleural effusions. Trace ascites. S[facility]: [facility] Verified Date/Time: 09/01/2021 12:35:23 Reading Location: [address] Consult Reading Room W/O DIFF W PLT 2021-08-10 06:30:02 Test Item Value Reference Range Interpretation Comme nts WHITE BLOOD CELL COUNT (test See_Comment [Automated message] The system code = 22413-8) which genera abdullahi this result transmitted ref erence range: 3.5 - 11.0 K/UL. Th e reference range was not used to interpret this result as conchita l/abnormal. RED BLOOD CELL COUNT (test See_Comment L [Automated message] The system code = 67124-6) which genera abdullahi this result transmitted ref erence range: 4.50 - 6.10 M/U L. The reference range was not u sed to interpret this result as normal/abnormal. HEMOGLOBIN (test code = 718-7) See_Comment L [Automated message] The system which generated this result transmitted ref erence range: 13.5 - 17.0 G/D L. The reference range was not u sed to interpret this result as normal/abnormal. HEMATOCRIT (test code = 24.0 % 40.0-51.0 L 09297-6) MEAN CORPUSCULAR VOLUME (test 97.6 fL 80.0-99.0 code = 50249-1) MEAN CORPUSCULAR HEMOGLOBIN 35.0 PG 25.0-33.0 H (test code = 77117-4) MEAN CORPUSCULAR HEMOGLOBIN See_Comment [Automated message] The system CONC (test code = 07438-8) w hich generated this result transmitted ref erence range: 31.0 - 36.0 G/D L. The reference range was not u sed to interpret this result as normal/abnormal. PLATELET COUNT (test code = See_Comment L [Automated message] The system 17441-5) which generated this result transmitted ref erence range: 130 - 400 K/UL. The reference range was not used to interpret this result as conchita l/abnormal. Comments (test code = 73178-1) (NOTE) NO SPECIFIC RBC ABNORMALITIES I DENTIFIED PLATELETS AP PEAR DECREASED SEE ADDITI ONAL COMMENTS BELOW: PLATELET COUNT CONFIRMED BY REVIEW OF THE SEVERO PHERAL SMEAR. NO MORPHOLOGIC ABN ORMALITY OF PLATELETS IDENTIFIED. Unless Otherw ise Indicated, All Testing Per formed At: [facility], [address] [place] [address] Laborator y Director: Sahra Alcala CLIA Number [id number] [place] o. [id number] Lab Interpretation (test code Abnormal = 33783-4) [facility] [id number] 16:33:04 Test Item Value Reference Range Interpretation Comments PARATHYROID HORMONE 136 PG/ML 15-65 H Unless INTACT (test code = Otherwis e Indicated, 2731-8) All Testing Per formed At: [facility], [address] [place] [address] Laboratory Dire ctor: Faith pringle M.D. CLI A Number [id number] Cap Accreditati on No. Lab Interpretation Abnormal (test code = 18061-3) [facility] 12:03:08 Test Item Value Reference Range Interpretation Comments FERRITIN (test code = See_Comment Unless Otherwise 71881-2) Indicated, All Testing Performed At: [facility], [address] [place], [place] [address] Laboratory Di joel: Faith pringle M.D. CLIA Number [id number] Cap Accreditati on No. [Auto mated message] The sy stem which generated this result transmitted ref erence range: 30 - 400 NG/ML. The reference range was not used to interpr et this result as conchita l/abnormal. [facility] 25 [id number] 11:47:28 Test Item Value Reference Range Interpretation Comments VITAMIN D 25-HYDROXY SEE BELOW NG/ML NOT E: 25-HYDROXYVITAMIN D (test code = 1988-) ASSAY I NCLUDES 25-HYDROXYVITAM IN D2 AND D3. METHOD OLOGY IS CHEMILUMINESCEN T IMMUNOASSAY. $$$$$ INTERPRET VERENA RANGES $$$$$PEDIATRIC (<17 YEARS) . . . . . . . . . . . NG/ML 20-100ADUL T: INSUFFICIENT . . . . . . . . . . . . . . N G/ML <20 SUBOPTI MAL . . . . . . . . . . . . . . . NG/ML 20-29 O PTIMAL . . . . . . . . . . . . . . . . . NG/ML 3 0-100 Unless Otherwi se Indicated, All Testing Per formed At: [facility], [address] [place], [place] [id number] Laboratory Dire ctor: Faith Pan M.D. CLIA Number [id number] Cap Accreditation N o. [facility] H[id number] 09:38:27 Test Item Value Reference Range Interpretation Comments PHOSPHORUS (test code = See_Comment Unless Otherwise 2777-1) Indicated, All Testing Performed At: [facility], [address] [place] [address] Laboratory D irector: Faith pringle M.D. CLIA Number [id number] Cap Accreditation N o. [id number] [Auto mated message] The sy stem which generated this result transmitted ref erence range: 2.5 - 4. 5 MG/DL. The reference r stella was not used to int erpret this result as normal/abnormal . [facility] 09:37:53 Test Item Value Reference Range Interpretation Comments ALBUMIN (test code = See_Comment Unless Otherwise 84288-5) Indicated, All Testing Performed At: [facility], [address] [place] [address] Laboratory Dir ronnie: Sahra Alcala CLIA Number [id number] [place]. [id number] [Automated mess age] The system which ge nerated this result transmit abdullahi reference range : 3.5 - 5.2 G/DL. The refer ence range was not used to interpret this result as normal/abnormal . [facility] HospitalBASI METABOLIC [id number] 09:37:53 Test Item Value Reference Range Interpretation Comments GLUCOSE (test code = See_Comment [Autom ated message] 2345-7) The system [employer] generated this result transmitted ref erence range: 70 - 99 MG/DL. The reference r stella was not used to interpret this result as normal/abnor mal. BLOOD UREA NITROGEN See_Comment H [Automa abdullahi message] (test code = 3091-6) The sys tem which generated this result transmitted ref erence range: 8 - 23 M G/DL. The reference r stella was not used to interpret this result as normal/abnor mal. CREATININE (test code = See_Comment H [Au tomated message] 2160-0) The system [employer] generated this result transmitted ref erence range: 0.80 - 1 .40 MG/DL. The refe rence range was not u sed to interpret this result as normal/abnor mal. EGFR (test code = See_Comment L [Automate d message] 25125-8) The system [employer] generated this result transmitted ref erence range: >60 ML/MIN/1.73. Th e reference range was not used to int erpret this result as normal/abnormal . SODIUM (test code = See_Comment [Automa abdullahi message] 2951-2) The system [employer] generated this result transmitted ref erence range: 133 - 14 6 MEQ/L. The refe rence range was not u sed to interpret this result as normal/abnor mal. POTASSIUM (test code = See_Comment [Aut omated message] 3413-3) The system [employer] generated this result transmitted ref erence range: 3.5 - 5. 4 MEQ/L. The refe rence range was not u sed to interpret this result as normal/abnor mal. CHLORIDE (test code = See_Comment H [Auto mated message] 2074-0) The system [employer] generated this result transmitted ref erence range: 95 - 107 MEQ/L. The reference r stella was not used to interpret this result as normal/abnor mal. CO2 (test code = See_Comment [Automated message] 8) The system [employer] generated this result transmitted ref erence range: 19 - 31 MEQ/L. The reference r stella was not used to interpret this result as normal/abnor mal. CALCIUM (test code = See_Comment Unless 67424-4) Otherwise Indic ated, All Testing Per formed At: [facility], [address] [place] [address] Laboratory Dire ctor: Faith pringle M.D. [place] Num [facility] [id number] [place]. [id number] [Auto mated message] The sy stem which generated this result transmit abdullahi reference range : 8.5 - 10.5 MG/DL. The reference range was not used to int erpret this result as normal/abnormal . Lab Interpretation Abnormal (test code = 26448-6) [facility] HospitalIRON+TIBC+%[id number] 09:37:53 Test Item Value Reference Range Interpretation Comments IRON (test code = See_Comment [Automate d message] 1138-4) The system [employer] generated this result transmitted ref erence range: 59 - 158 UG/DL. The reference r stella was not used to interpret this result as normal/abnor mal. UIBC (test code = See_Comment L [Automate d message] 2501-5) The system [employer] generated this result transmitted ref erence range: 112 - 34 7 UG/DL. The refe rence range was not u sed to interpret this result as normal/abnor mal. TIBC (test code = See_Comment L [Automate d message] 38882-5) The system [employer] generated this result transmitted ref erence range: 250 - 45 0 UG/DL. The refe rence range was not u sed to interpret this result as normal/abnor mal. IRON SATURATION % (test 59 % 20-50 H Unless code = 2502-3) Otherwise Ind icated, All Testing Per formed At: [facility], [address] [place] [address] Laboratory Dire ctor: Faith pringle M.D. CLIA Num mamie [id number] [place]reditation [place] o. [id number] Lab Interpretation Abnormal (test code = 65535-9) [facility] Hospital[facility]BV [facility]IRAL [id number] 15:54:00 Test Item Value Reference Range Interpretation Comments EBV VIRAL LOAD - POSITIVE Se e Scanned Report. (BEAKER) (test code = 2291) EBV VIRAL LOAD - NEGATIVE Se e Scanned Report. (BEAKER) (test code = 2559) This assay was performed by real-time PCR for the detection of the Elina-Joyner virus (EBV) gene EBNA-1. The test is composed of (1) DNA extraction from patient specimen, and (2) real-time PCR amplification and detection with MXQL-0-lliiddie primers and probes. A well-conserved region of the EBNA-1 gene is targeted, along with an internal control sequence used to confirm PCR amplification. Asymptomatic carriers and viral genetic variation, among other factors, can affect the accuracy of nucleic acid testing; therefore, results should be interpreted in light of clinical data.This test was developedand its performance characteristics determined by the [facility] Pathology Department, Section of Molecular Pathology. It has not been cleared or approved by the U.S. Food and Drug Administration (FDA), since FDA approval is not required for clinical use of the test. Validation was doneas required by The Clinical Laboratory Improvement Amendments of 1988.CMV PCR, QUANTITATIVE 2021-03-01 14:14:00 Test Item Value Reference Range Interpretation Comments CMV VIRAL LOAD - Negative or below See_Comment [Auto mated message] NEGATIVE (KATELYNN) the linear range The sy stem which (test code = of the assay generated this 2558) (<300 IU/mL) result transmit abdullahi reference range : <300 - >3,00 0,000 IU/mL. The refe rence range was not u sed to interpret th is result as normal/abnormal . Cytomegalovirus (CMV) infection can cause significant disease [...] and its performance characteristics determined by the [facility] Path ology Department, Section of Molecular Pathology. It has not been cleared or approved by the U.S. Food and Drug Administration (FDA), since FDA approval is not required for clinical use of the test. Validation was done as required by The Clinical Laboratory Improvement Amendments of 1987.[id number] 19:01:00 Test Item Value Reference Range Interpretation Comments PROSTATE SPECIFIC ANTIGEN (KATELYNN) 0.2 ng/mL 0.0-4.0 (test code = 844) Mate [facility] ID - BSVITAMIN D, [id number] 19:01:00 Test Item Value Reference Range Interpretation Comments VITAMIN D 25-OH (BENOLVIA) (test 30.3 ng/mL 6.6-49.9 code = 2764) Effective 04/10/2017: Reference Range ChangeNew: 6.6-49.9 ng/mL Previous: 13.0-47.8 ng/mLRecommended Vitamin D Target Range: 30.0-40.0 ng/mLOperator ID - BSHEMOGLOBIN [id number] 15:22:00 Test Item Value Reference Range Interpretation Comments HEMOGLOBIN A1C (BEAKER) (test code = < % 4.3-6.1 L 368) TACROLIMUS [id number] 15:11:00 Test Item Value Reference Range Interpretation Comments TACROLIMUS BLOOD 4.5 ng/mL 10.0-20.0 L Test perfor med on Colon (BEAKER) (test code Architec t Immunoassay = 657) system with Chemiluminescen t Microparticle I mmunoassay (CMIA) technolo gy. [facility] ID - ADMINIMMUNOGLOBULIN G (IGG)2021-02-28 13:50:00 Test Item Value Reference Range Interpretation Comments IMMUNOGLOBULIN G (IGG) < mg/dL See_Comment L [Aut omated message] (BEAKER) (test code = The sy stem which 427) generated this result transmitted ref erence range: 540-1,82 2. The reference range was not used to int erpret this result as normal/abnormal . [facility] ID - SERGIO Gutierrez ID - SERGIO LCOMPREHENSIVE METABOLIC PANEL 2021-02-28 12:48:00 Test Item Value Reference Range Interpretation Comments TOTAL PROTEIN 5.0 gm/dL 6.0-8.3 L (BEAKER) (test code = 770) ALBUMIN (BEAKER) 3.6 g/dL 3.5-5.0 (test code = 1145) ALKALINE PHOSPHATASE 213 U/L 40-150 H (BEAKER) (test code = 346) BILIRUBIN TOTAL 2.7 mg/dL 0.2-1.2 H (BEAKER) (test code = 377) SODIUM (BEAKER) (test 141 meq/L 136-145 code = 381) POTASSIUM (BEAKER) 4.5 meq/L 3.5-5.1 (test code = 379) CHLORIDE (BEAKER) 113 meq/L 98-107 H (test code = 382) CO2 (BEAKER) (test 24 meq/L 22-29 code = 355) BLOOD UREA NITROGEN 29 mg/dL 7-21 H (BEAKER) (test code = 354) CREATININE (BEAKER) 1.65 mg/dL 0.57-1.25 H (test code = 358) GLUCOSE RANDOM 134 mg/dL 70-105 H (BEAKER) (test code = 652) CALCIUM (BEAKER) 9.1 mg/dL 8.4-10.2 (test code = 697) AST (SGOT) (BEAKER) 34 U/L 5-34 (test code = 353) ALT (SGPT) (BEAKER) 23 U/L 6-55 (test code = 347) EGFR (BEAKER) (test 42 mL/min/1.73 ESTIMA ABDULLAHI GFR IS code = 1092) sq m NOT ACCURATE CREATININE CLEARANCE IN PREDICTING GLOMERULAR FILTRATION RATE . ESTIMATED GFR I S NOT APPLICABLE FOR DIALYSIS PATIEN TS. [facility] ID - SERGIO LOpetor ID - SERGIO LSpecimen slightly ictericMAGNESIUM 2021-02-28 12:27:00 Test Item Value Reference Range Interpretation Comments MAGNESIUM (BEAKER) (test code = 1.7 mg/dL 1.6-2.6 627) [facility] ID - SERGIO LLIPID [id number] 12:27:00 Test Item Value Reference Range Interpretation Comments TRIGLYCERIDES (BEAKER) (test code = 65 mg/dL 540) CHOLESTEROL (BEAKER) (test code = 154 mg/dL 631) HDL CHOLESTEROL (BEAKER) (test code 61 mg/dL = 976) LDL CHOLESTEROL CALCULATED (BEAKER) 80 mg/dL (test code = 633) Triglyceride Reference Range: Low Risk <150 Borderline 150-199 High Risk 200-499 Very High Risk >=500Cholesterol Reference Range: Low Risk <200 Borderline 200-239 High Risk >240HDL Cholesterol Reference Range: Low Risk >=60 High Risk <40LDL Cholesterol Reference Range: Optimal <100 Near Optimal 100-129 Borderline 130-159 High 160-189 Very High >=190 Mate [facility] ID - SERGIOLSpecimen slightly ictericRAD, CHEST, 2 VIEWS 2021-02-28 12:13:00Referring: Dr. Yary Eastman/ [place] for Exam:->s/[facility] : 1955 Sex: MFINAL REPORT INDICATION: s/p lung transplant COMPARISON: August 2020 TECHNIQUE: Frontal and lateral views of the chest. FINDINGS: Lungs and pleura: No new consolidation. Trace bilateral effusions. Central subsegmental atelectasis.Heart and mediastinum: Normal heart size. Stable mediastinal surgical changes.Osseous structures: No acute abnormality.Additional findings: None. IMPRESSION: No acute intrathoracic abnormality. Signed: JR Rizzo Robert MDReport Verified Date/Time: 02/28/2021 12:13:10 Reading Location: [facility] Radiology Reading Room URINALYSIS W/ REFLEX URINE [id number] 11:12:00 Test Item Value Reference Range Interpretation Comments COLOR (BEAKER) (test code = 470) Yellow CLARITY (BEAKER) (test code = 469) Clear SPECIFIC GRAVITY UA (BEAKER) (test 1.019 1.001-1.035 code = 468) PH UA (BEAKER) [...] RBC UA (BEAKER) (test code = 519) 1 /HPF WBC UA (BEAKER) (test code = 520) < /HPF BACTERIA (BEAKER) (test code = 517) None Seen MUCUS (BEAKER) (test code = 1574) Rare CRYSTALS, URINE (BEAKER) (test code None Seen = 1521) AMORPHOUS CRYSTALS (BEAKER) (test Rare code = 1584) SOURCE(BEAKER) (test code = 2795) Mate [facility] ID - [auto]Mate Relief ID - techCREATININE, RANDOM [id number] 10:58:00 Test Item Value Reference Range Interpretation Comments CREATININE URINE (BEAKER) (test 162.2 mg/dL code = 375) Reference Range: No NormalsOperator ID - PIAYA LPROTEIN, RANDOM [id number] 10:58:00 Test Item Value Reference Range Interpretation Comments PROTEIN, URINE (BEAKER) (test code = 9 mg/dL 0-14 1569) [facility] ID - PIAYA LMICROALBUMIN, RANDOM [id number] 10:58:00 Test Item Value Reference Range Interpretation Comments MICROALBUMIN URINE (BEAKER) (test 1.6 mg/dL code = 1794) Reference Range: No NormalsOperator ID - PIAYA LCBC W/PLT COUNT & AUTO [id number] 10:42:00 Test Item Value Reference Range Interpretation [...] (test code = 753) MEAN CORPUSCULAR HEMOGLOBIN 33.8 pg 25.7-32.2 H (BEAKER) (test code = 751) MEAN CORPUSCULAR HEMOGLOBIN CONC 33.2 GM/DL 32.3-36.5 (BEAKER) (test code = 752) RED CELL DISTRIBUTION WIDTH 16.3 % 11.6-14.4 H (BEAKER) (test code = 412) PLATELET COUNT (BEAKER) (test code 47 K/CU MM 150-450 L = 756) MEAN [...] 0-1 PERCENT (BEAKER) (test code = 2801) MR, ABDOMEN, [id number] 10:33:00Referring: Dr. Yary Eastman/ KINA Patient has CKD 4. Please use Gadolinium Based Contrast Agent: Multihance or Gadovist. Unlisted Reason for Exam - Click Yes and Enter Reason Below->Yes Unlisted R janine for Exam->cirrhosis, screen for HCC, liver [facility] 1955 Sex: MFINAL REPORT TECHNIQUE: MRI of the abdomen WITHOUT and WITH intr avenous contrast. INDICATION: Cirrhosis, screen for HCC. COMPARISON: 05/13/2019. FINDINGS: LOWER THORAX: Trace bilateral pleural effusions with basilar atelectasis. The heart is enlarged.. LIVER: Cirrhotic morphology of the liver.. A few small hepatic cysts. Largest measures 1 cm in segment five. No suspicious hepatic observation. Previously described arterial enhancing focus in segment six of the liver is not visualized on this exam and may have represented a focus of altered perfusion on previousMRI.BILIARY: Cholelithiasis.. No biliary ductal dilatation or filling defect.SPLEEN: Spleen is enlarged measuring 17 cm in length..PANCREAS: No focal masses or ductal dilatation. 1 cm cystic lesion in t he pancreatic head. ADRENALS: No adrenal nodules.KIDNEYS/URETERS: No hydronephrosis or solid mass lesions. PERITONEUM/RETROPERITONEUM: No free fluid.LYMPH NODES: No lymphadenopathy.VESSELS: Portal vein, splenic vein and superior mesenteric vein are patent. Main portal vein measures 1.8 cm in diameter.TIPS is present. Evaluation for TIPS patency limited on this exam secondary to susceptibility artifact from the stent.. Conventional hepatic arterial anatomy. GI TRACT: No distention or wall thickening. BONES AND SOFT TISSUES: Mild degenerative changes in the spine. No suspicious osseous lesion.. IMPRESSION:Cirrhosis with sequela of portal hypertension. No suspicious hepatic obscuration. New 1 cm cystic focus in the pancreatic head which may represents pseudocyst or cystic pancreatic neoplasm such as side branch IPMN. There is no main pancreatic ductal dilation. Further evaluation with MRCP on subsequent follow-up MRI is recommended. Cholelithiasis. Cardiomegaly with trace bilateral pleural effusions. Signed: Cheyenne Jensen MDReport Verified Date/Time: 02/02/2021 10:33:11 Reading Location: [address] Consult Reading Room -[id number] 13:46:00 Test Item Value Reference Range Interpretation Comments POC-CREATININE 2.3 mg/dL 0.6-1.3 H : [place] [facility] [place] (test [address], code = 1859) [place] [address]: Mate Relief/Techni demetrice ID = [id number] for Michelle Prescott POC-EGFR (BEAKER) 29 mL/min/1.73M2 (test code = 1860) TACROLIMUS [id number] 10:05:00 Test Item Value Reference Range Interpretation Comments TACROLIMUS BLOOD 3.6 ng/mL 10.0-20.0 L Test perfor med on Colon (BEAKER) (test code Architec t Immunoassay = 657) system with Chemiluminescen t Microparticle I mmunoassay (CMIA) technolo gy. Mate [facility] ID - MARCELLE [id number] 05:38:00 Test Item Value Reference Range Interpretation Comments MAGNESIUM (BEAKER) (test code = 1.7 mg/dL 1.6-2.6 627) Mate [facility] ID - SERGIO [id number] 05:38:00 Test Item Value Reference Range Interpretation Comments PHOSPHORUS (BEAKER) (test code = 4.0 mg/dL 2.3-4.7 604) Mate [facility] ID - SERGIO LCOMPREHENSIVE METABOLIC [id number] 05:38:00 Test Item Value Reference Range Interpretation [...] S NOT APPLICABLE FOR DIALYSIS PATIEN TS. Mate [facility] ID - PIAYA LSpecimen slightly ictericCBC W/PLT COUNT & AUTO [id number] 05:30:00 Test Item Value Reference Range Interpretation [...] PERCENT (BEAKER) (test code = 2801) SARS-COV2/RT-PCR ([facility])2020-11-10 04:55:00 Test Item Value Reference Range Interpretation Comments SARS-COV2/RT-PCR (test Negative Not Detected, Negative, code = 8292730) See external report for linked test SARS-COV-2 PERFORMING LAB [facility] (test code = 8694891) Negative result for this test determines that [...] 564(g) of the Act.Fact Sheet for Healthcare Providers:https://www.[employer]/sites/default/files/product/documents/Fact_Shee v_XQ_Jmjqrlkbe_Jhwb_MUKC-DyP-9.pdfFact Sheet for Healthcare Patients:https://www.[employer]/sites/default/files/product/ documents/Qnvx_Nxozq_Phsbkwpy_Uart_AUNV-OqX-0.pdfPerforming Laboratory:[facility], [place] [address]JSVPTGSUCOD TIME/INR 2020-11-10 04:45:00 Test Item Value Reference Range Interpretation Comments PROTIME (BEAKER) 17.5 seconds 11.9-14.2 H (test code = 759) INR (BEAKER) (test 1.48 See_Comment [Automat ed message] code = 370) The system [employer] generated this result transmitted ref erence range: <=5.90. The reference range was not used to int erpret this result as normal/abnormal . Effective 11/26/2018: PT Reference Range ChangeNew: 11.9-14.2 Previous: 11.7- 14.7RECOMMENDED COUMADIN/WARFARIN INR THERAPY RANGESSTANDARD DOSE: 2.0-3.0 Includes: PROPHYLAXIS for venous thrombosis, systemic embolization; TREATMENT for venous thrombosis and/or pulmonary embolus.HIGH RISK: Target INR is2.5-3.5 for patients wiht mechanical heart valves.COMPREHENSIVE METABOLIC PANEL 2020-11-09 21:19:00 Test Item Value Reference Range Interpretation [...] S NOT APPLICABLE FOR DIALYSIS PATIEN TS. Mate Relief ID - BSCBC (HEMOGRAM ONLY)2020-11-09 21:00:00 Test Item Value Reference [...] /100 WBC 0-0 (test code = 413) PTH [id number] 14:22:57 Test Item Value Reference Range Interpretation Comments PARATHYROID HORMONE 210 PG/ML 15-65 H Unless INTACT (test code = Otherwis e Indicated, 2731-8) All Testing Per formed At: [facility], [address] [place] [address] Laboratory Dire ctor: Faith pringle M.D. CLI A Number [id number] [place] [id number] Lab Interpretation Abnormal (test code = 87008-8) [facility] [id number] 11:24:36 Test Item Value Reference Range Interpretation Comments VITAMIN D 25-HYDROXY SEE BELOW NG/ML NOT E: 25-HYDROXYVITAMIN D (test code = 1988-08) ASSAY I NCLUDES 25-HYDROXYVITAM IN D2 AND D3. METHOD OLOGY IS CHEMILUMINESCEN T IMMUNOASSAY. $$$$$ INTERPRET VERENA RANGES $$$$$PEDIATRIC (<17 YEARS) . . . . . . . . . . . NG/ML 20-100ADUL T: INSUFFICIENT . . . . . . . . . . . . . . N G/ML <20 SUBOPTI MAL . . . . . . . . . . . . . . . NG/ML 20-29 O PTIMAL . . . . . . . . . . . . . . . . . NG/ML 3 0-100 Unless Otherwi se Indicated, All Testing Per formed At: [facility], [address] [place], [place] [address] 4 Laboratory Dire ctor: Faith Pan M.D. CLIA Number [id number] Cap Accreditation N o. [id number] [facility] 09:08[facility]03 Test Item Value Reference Range Interpretation Comments ALBUMIN (test code = See_Comment Unless Otherwise 90882-7) Indicated, All Testing Performed At: [facility], [address] [place] [address] Laboratory Dir ronnie: Sahra Alcala CLIA Number [id number] Cap Accreditation N o. [id number] [Automated mess age] The system which ge nerated this result transmit abdullahi reference range : 3.5 - 5.2 G/DL. The refer ence range was not used to interpret this result as normal/abnormal . [facility] [id number] 09:08:03 Test Item Value Reference Range Interpretation Comments GLUCOSE (test code = See_Comment H [Autom ated message] 1385-7) The system [employer] generated this result transmitted ref erence range: 70 - 99 MG/DL. The reference r stella was not used to interpret this result as normal/abnor mal. BLOOD UREA NITROGEN See_Comment H [Automa abdullahi message] (test code = 3091-6) The [employer] tem which generated this result transmitted ref erence range: 8 - 23 M G/DL. The reference r stella was not used to interpret this result as normal/abnor mal. CREATININE (test code = See_Comment H [Au tomated message] 2160-0) The system [employer] generated this result transmitted ref erence range: 0.80 - 1 .40 MG/DL. The refe rence range was not u sed to interpret this result as normal/abnor mal. EGFR AA (test code = See_Comment L [Autom ated message] 24749-6) The system [employer] generated this result transmitted ref erence range: >60 ML/MIN/1.73. Th e reference range was not used to int erpret this result as normal/abnormal . EGFR (test code = See_Comment L [Automate d message] 07668-2) The system [employer] generated this result transmitted ref erence range: >60 ML/MIN/1.73. Th e reference range was not used to int erpret this result as normal/abnormal . SODIUM (test code = See_Comment [Automa abdullahi message] 2951-2) The system [employer] generated this result transmitted ref erence range: 133 - 14 6 MEQ/L. The refe rence range was not u sed to interpret this result as normal/abnor mal. POTASSIUM (test code = See_Comment [Aut omated message] 8873-3) The system [employer] generated this result transmitted ref erence range: 3.5 - 5. 4 MEQ/L. The refe rence range was not u sed to interpret this result as normal/abnor mal. CHLORIDE (test code = See_Comment H [Auto mated message] 2074-0) The system [employer] generated this result transmitted ref erence range: 95 - 107 MEQ/L. The reference r stella was not used to interpret this result as normal/abnor mal. CO2 (test code = See_Comment [Automated message] 1962-8) The system [employer] generated this result transmitted ref erence range: 19 - 31 MEQ/L. The reference r stella was not used to interpret this result as normal/abnor mal. CALCIUM (test code = See_Comment Unless 84022-7) Otherwise Indic ated, All Testing Per formed At: [facility], [address] [place] [address] Laboratory Dire ctor: Faith pringle M.D. CLIA Num mamie [id number] Cap Accreditation N o. [id number] [Auto mated message] The sy stem which generated this result transmit abdullahi reference range : 8.5 - 10.5 MG/DL. The reference range was not used to int erpret this result as normal/abnormal . Lab Interpretation Abnormal (test code = 18351-0) [facility]IRON+TIBC+%[id number] 09:08:03 Test Item Value Reference Range Interpretation Comments IRON (test code = See_Comment H [Automate d message] 2498-4) The system [employer] generated this result transmitted ref erence range: 59 - 158 UG/DL. The reference r stella was not used to interpret this result as normal/abnor mal. UIBC (test code = See_Comment L [Automate d message] 2501-5) The system [employer] generated this result transmitted ref erence range: 112 - 34 7 UG/DL. The refe rence range was not u sed to interpret this result as normal/abnor mal. TIBC (test code = See_Comment L [Automate d message] 51654-4) The system [employer] generated this result transmitted ref erence range: 250 - 45 0 UG/DL. The refe rence range was not u sed to interpret this result as normal/abnor mal. IRON SATURATION % (test 75 % 20-50 H Unless code = 2502-3) Otherwise Ind icated, All Testing Per formed At: [facility], [address] [place] [address] Laboratory Dire ctor: Faith pringle M.D. CLIA Num mamie [id number] Cap [place]reditation [place] o. [id number] Lab Interpretation Abnormal (test code = 61195-7) [facility] HospitalYtnkgnecBLQVVNMLAK1268-01-83 09:06:58 Test Item Value Reference Range Interpretation Comments PHOSPHORUS (test code = See_Comment Unless Otherwise 2777-1) Indicated, All Testing Performed At: [facility], [address] [place] [address] Laboratory D irector: Faith pringle M.D. CLIA Number [id number] Cap Accreditation N o. [id number] [Auto mated message] The sy stem which generated this result transmitted ref erence range: 2.5 - 4. 5 MG/DL. The reference r stella was not used to int erpret this result as normal/abnormal . [facility] W/O DIFF W [id number] 07:47:30 Test Item Value Reference Range Interpretation Comments WHITE BLOOD CELL COUNT See_Comment [Aut omated message] (test code = 35605-1) The sy stem which generated this result transmitted ref erence range: 3.5 - 11 .0 K/UL. The refer ence range was not u sed to interpret this result as normal/abnor mal. RED BLOOD CELL COUNT See_Comment L [Autom ated message] (test code = 31282-4) The sy stem which generated this result transmitted ref erence range: 4.50 - 6 .10 M/UL. The refer ence range was not u sed to interpret this result as normal/abnor mal. HEMOGLOBIN (test code = See_Comment L [Au tomated message] 718-7) The system whic h generated this result transmitted ref erence range: 13.5 - 1 7.0 G/DL. The refer ence range was not u sed to interpret this result as normal/abnor mal. HEMATOCRIT (test code = 22.6 % 40.0-51.0 L 38225-5) MEAN CORPUSCULAR VOLUME 99.6 fL 80.0-99.0 H (test code = 88338-5) MEAN CORPUSCULAR 35.2 PG 25.0-33.0 H HEMOGLOBIN (test code = 79211-6) MEAN CORPUSCULAR See_Comment [Automated message] HEMOGLOBIN CONC (test The sy stem which code = 37496-0) generated th is result transmitted ref erence range: 31 - 36 G/DL. The reference r stella was not used to interpret this result as normal/abnor mal. PLATELET COUNT (test See_Comment L Unless code = 42860-8) Otherwise In dicated, All Testing Per formed At: [facility], [address] [place] [address] Laboratory Dire ctor: Faith pringle M.D. CLIA Num mamie [id number] Cap Accreditation N o. [id number] [Auto mated message] The sy stem which generated this result transmit abdullahi reference range : 130 - 400 K/UL. The reference range was not used to int erpret this result as normal/abnormal . Lab Interpretation Abnormal (test code = 60942-6) [facility] HospitalTACROLIMUS [id number] 11:13:00 Test Item Value Reference Range Interpretation Comments TACROLIMUS BLOOD 3.5 ng/mL 10.0-20.0 L Test perfor med on Colon (BEAKER) (test code Architec t Immunoassay = 657) system with Chemiluminescen t Microparticle I mmunoassay (CMIA) technolo gy. Mate [facility] ID - SAMY [id number] 06:49:00 Test Item Value Reference Range Interpretation Comments MAGNESIUM (BEAKER) (test code = 1.9 mg/dL 1.6-2.6 627) [facility] ID - CASEY MBASIC METABOLIC [id number] 06:49:00 Test Item Value Reference Range Interpretation [...] S NOT APPLICABLE FOR DIALYSIS PATIEN TS. [facility] ID - CASEY MSpecimen slightly ictericCBC W/PLT COUNT & AUTO [id number] 06:12:00 Test Item Value Reference Range Interpretation [...] PERCENT (BEAKER) (test code = 2801) TACROLIMUS [id number] 14:50:00 Test Item Value Reference Range Interpretation Comments TACROLIMUS BLOOD 8.7 ng/mL 10.0-20.0 L Test perfor med on Colon (BEAKER) (test code Architec t Immunoassay = 657) system with Chemiluminescen t Microparticle I mmunoassay (CMIA) technolo gy. Mate [facility] ID - [id number] 11:10:00 Test Item Value Reference Range Interpretation Comments MAGNESIUM (BEAKER) (test code = 1.8 mg/dL 1.6-2.6 627) Mate [facility] ID - GENARO CSARS-COV2/RT-PCR ([facility])2020-09-25 09:54:00 Test Item Value Reference Range Interpretation Comments SARS-COV2/RT-PCR (test Negative Not Detected, Negative, code = 9863053) See external report for linked test SARS-COV-2 PERFORMING LAB [facility] (test code = 1176713) Negative result for this test determines that [...] 564(g) of the Act.Fact Sheet for Healthcare Providers:https://www.[employer].com/sites/default/files/product/documents/Fact_Shee g_BW_Uqanyrmel_Eckd_TYOF-RhG-6.pdfFact Sheet for Healthcare Patients:https://www.[employer]/sites/default/files/product/ documents/Xsiq_Jknxt_Ejmmbawk_Jhkt_VNFJ-QtP-1.pdfPerforming Laboratory:[facility], [place] [address]DVM, CHEST, 1 VIEW, NON [id number] 09:53:00Referring: Dr. Yary Eastman/ [place] for exam:- >ALTERED MENTAL STATUSShould this be performed at the bedside?->Yes [facility] 1955 Sex: MFINAL REPORT INDICATION: [...] MDReport Verified Date/Time: 09/25/2020 09:53:27 Reading Location: [address] Neuro Reading Room URINALYSIS W/ REFLEX URINE [id number] 04:36:00 Test Item Value Reference Range Interpretation [...] = 1584) SOURCE(BEAKER) (test code = 2795) Mate [facility] ID - [auto]Mate Relief ID - techBASIC METABOLIC [id number] 03:24:00 Test Item Value Reference Range Interpretation [...] S NOT APPLICABLE FOR DIALYSIS PATIEN TS. [facility] ID - CASEY MSpecimen slightly ictericHEPATIC FUNCTION [id number] 03:24:00 Test Item Value Reference Range Interpretation [...] (test code = 36 U/L 6-55 347) Mate [facility] ID - CASEY MSpecimen slightly ygsodqyZIHRPGR6492-13-07 03:12:00 Test Item Value Reference Range Interpretation Comments AMMONIA (BEAKER) (test code = 348) 63 mol/L 18-72 Mate [facility] ID - CASEY MPT/[id number] 03:11:00 Test Item Value Reference Range Interpretation [...] mechanical heart valves.CBC W/PLT COUNT & AUTO [id number] 03:10:00 Test Item Value Reference Range Interpretation [...] (test code = 2801) CT, BRAIN, WITHOUT [id number] 02:42:00Referring: Dr. Yary Eastman/ [place] for exam:->confusionWhat is the patient's sedation requirement?- >No SedationCHI [facility] : 1955 Sex: MFINAL REPORT EXAM: [...] hemorrhage, mass effect or hydrocephalus.Signed: David Yee MDReport Verified Date/Time: 09/25/2020 02:42:37 AFB CULTURE + SMEAR (NON-SPUTUM)2020-08-15 10:06:00 Test Item Value Reference Range Interpretation Comments CULTURE (BEAKER) (test No acid-fast bacilli code = 1095) isolated in 42 days AFB SMEAR (BEAKER) No acid fast bacilli (test code = 994) seen CMV PCR, [id number] 11:20:00 Test Item Value Reference Range Interpretation Comments CMV VIRAL LOAD - Testing per formed at POSITIVE (BEAKER) (test Ques t Diagnostics code = 1557) CMV VIRAL LOAD - Testing per formed at NEGATIVE (BEAKER) (test Ques t Diagnostics code = 2558) BLOOD [id number] 14:00:00 Test Item Value Reference Range Interpretation Comments CULTURE (BEAKER) (test No growth in 5 days code = 1095) BLOOD [id number] 12:00:00 Test Item Value Reference Range Interpretation Comments CULTURE (BEAKER) (test No growth in 5 days code = 1095) BASIC METABOLIC [id number] 06:37:00 Test Item Value Reference Range Interpretation [...] S NOT APPLICABLE FOR DIALYSIS PATIEN TS. Mate [facility] ID - PIAYA [id number] 06:30:00 Test Item Value Reference Range Interpretation Comments MAGNESIUM (BEAKER) (test code = 2.0 mg/dL 1.6-2.6 627) Mate [facility] ID - PIAYA LHEPATIC FUNCTION [id number] 06:30:00 Test Item Value Reference Range Interpretation [...] (test code = 30 U/L 6-55 347) Mate [facility] ID - PIAYA LPT/[id number] 06:05:00 Test Item Value Reference Range Interpretation [...] mechanical heart valves.CBC W/PLT COUNT & AUTO [id number] 05:55:00 Test Item Value Reference Range Interpretation [...] 0-1 PERCENT (BEAKER) (test code = 2801) [id number] 07:14:00 Test Item Value Reference Range Interpretation Comments MAGNESIUM (BEAKER) (test code = 2.0 mg/dL 1.6-2.6 627) Mate [facility] ID - PIAYA LHEPATIC FUNCTION [id number] 07:14:00 Test Item Value Reference Range Interpretation [...] (test code = 25 U/L 6-55 347) Mate [facility] ID - PIANTONIO LSpecimen slightly ictericBASIC METABOLIC [id number] 07:14:00 Test Item Value Reference Range Interpretation [...] S NOT APPLICABLE FOR DIALYSIS PATIEN TS. Mate [facility] ID - PIAYA LSpecimen slightly ictericPT/[id number] 06:20:00 Test Item Value Reference Range Interpretation [...] mechanical heart valves.CBC W/PLT COUNT & AUTO [id number] 06:16:00 Test Item Value Reference Range Interpretation [...] GRANULOCYTES-RELATIVE PERCENT (BEAKER) (test code = 2801) VITAMIN B12 AND [id number] 14:36:00 Test Item Value Reference Range Interpretation Comments VITAMIN B12 (BEAKER) (test code = 505 pg/mL 213-816 774) FOLATE (BEAKER) (test code = 362) 32.30 ng/mL >=7.00 Mate [facility] ID - EDASIOperator ID - [id number] 14:33:00 Test Item Value Reference Range Interpretation Comments FERRITIN (BEAKER) (test code = 425.01 ng/mL 5.00-275.00 H 361) Mate [facility] ID - EDASITSH/FREE T4 IF [id number] 14:28:00 Test Item Value Reference Range Interpretation Comments THYROID STIMULATING HORMONE 4.181 uIU/mL 0.350-4.940 (BEAKER) (test code = 772) Mate [facility] ID - DBIRON, TIBC, % SAT. (WITHOUT FERRITIN)2020-07-30 13:13:00 Test Item Value Reference Range Interpretation Comments IRON (BEAKER) (test code = 547) 90.0 ug/dL 40.0-160.0 TOTAL IRON BINDING CAPACITY 156 ug/dL 250-450 L (BEAKER) (test code = 769) IRON % SATURATION (2) (BEAKER) 58 % 20-55 H (test code = 2590) Mate [facility] ID - EDASIHEMOGLOBIN AND [id number] 12:48:00 Test Item Value Reference Range Interpretation Comments HEMOGLOBIN (BEAKER) (test code = 6.0 GM/DL 13.7-17.5 LL 410) HEMATOCRIT (BEAKER) (test code = 18.3 % 40.1-51.0 L 411) Mate Relief ID - 6000U/S, ABDOMINAL, [id number] 09:00:00Referring: Dr. Yary Eastman/ KINA Labs to be ordered:->Body Fluid Culture (w/Gram Stain, C\\T\\S)Labs to be ordered:->Cell Count Reason for exam:->ALTERED MENTAL STATUSST[facility] : 1955 Sex: MFINAL REPORT History: Ascites. PROCEDURE: Limited sonographic ex amination of the abdomen was performed in preparation for planned ultrasound- guided paracentesis. Limited sonographic examination of the abdomen showed no ascites. Therefore, paracentesis was not performed. IMPRESSION: 1. No ascites, not enough for planned paracentesis. Signed: Deanna Barrazaort Verified Date/Time: 07/30/2020 09:00:16 Reading Location: [address] Ultrasound Reading Room CBC W/PLT COUNT & AUTO [id number] 08:41:00 Test Item Value Reference Range Interpretation [...] (BEAKER) (test code = 2801) BASIC METABOLIC [id number] 07:50:00 Test Item Value Reference Range Interpretation [...] S NOT APPLICABLE FOR DIALYSIS PATIEN TS. Mate Relief ID - EDASISpecimen slightly [id number] 07:49:00 Test Item Value Reference Range Interpretation Comments MAGNESIUM (BEAKER) (test code = 2.0 mg/dL 1.6-2.6 627) Mate Relief ID - EDASIHEPATIC FUNCTION [id number] 07:49:00 Test Item Value Reference Range Interpretation [...] (test code = 29 U/L 6-55 347) Mate Relief ID - EDASISpecimen slightly ictericPT/[id number] 07:38:00 Test Item Value Reference Range Interpretation [...] INR is2.5-3.5 for patients wiht mechanical heart valves.SARS-COV2/INFLUENZA/RSV RT-PCR 2020-07-29 19:02:00 Test Item Value Reference Range Interpretation Comments SARS-COV2/RT-PCR Negative Negative (test code = 1563990) INFLUENZA A RT-PCR Negative Negative (test code = 1152701) INFLUENZA B RT-PCR Negative Negative (test code = 8443352) RSV RT-PCR (test Negative Negative Performanc e of the Xpert code = 7829594) Xpress SARS- CoV-2/Flu/RSV test has only b [...] sooner.Fact She et for Healthcare Prov iders: https://www.FlxOne.[employer]/D ocuments/Xpert% 20Xpress%2 1BPCO-PgR-0-Flu -RSV/- 508%20Rev.%20B% 20HCP%20Fa ct%20Sheet.pdfF act Sheet for Healthcare Patients: https://www.[employer]One.[employer]/D ocuments/Xpert% 20Xpress%2 8BUTC-KuN-1-Flu -RSV/- 507%20Rev.%20B% 20Patient% 20Fact%20Sheet. pdf PROTEIN, RANDOM [id number] 16:42:00 Test Item Value Reference Range Interpretation Comments PROTEIN, URINE (BEAKER) (test code = 11 mg/dL 0-14 1569) Mate [facility] ID - DBSODIUM, RANDOM [id number] 16:42:00 Test Item Value Reference Range Interpretation Comments SODIUM URINE (BEAKER) (test code = 37 meq/L 243) Reference Range: No NormalsOperator ID - DBUREA NITROGEN, RANDOM [id number] 14:39:00 Test Item Value Reference Range Interpretation Comments UREA NITROGEN URINE (BEAKER) (test 681 mg/dL code = 538) Reference Range: No NormalsOperator ID - SAMY MCHLORIDE, RANDOM URINE 2020-07-29 14:38:00 Test Item Value [...] Reference Range: No NormalsOperator ID - SAMY MOSMOLALITY, [id number] 13:42:00 Test Item Value Reference Range Interpretation Comments OSMOLALITY URINE (BEAKER) (test 434 mOsm/kg 50-1,200 mOsm/kg code = 614) URINALYSIS W/ [id number] 13:42:00 Test Item Value Reference Range Interpretation [...] 1 /HPF SOURCE(BEAKER) (test code = 2795) Mate Relief ID - [auto]Mate Relief ID - [auto]LACTIC ACID, [id number] 13:02:00 Test Item Value Reference Range Interpretation Comments LACTATE BLOOD VENOUS (2) (KATELYNN) 1.84 mmol/L 0.50-2.20 (test code = 2872) Mate [facility] ID - Linh mack ictericRAD, CHEST, 1 VIEW, NON DEPT 2020-07-29 12:11:00Referring: Dr. Yary Eastman/ [place] for exam:- >ALTERED MENTAL STATUSShould this be performed at the bedside?->Yes [facility] : 1955 Sex: MFINAL REPORT CLINICAL HISTORY: ALTERED MENTAL STATUS TECHNIQUE: 1 view of the chest. COMPARISON: 07/04/2020 IMPRESSION: There is vaguely increased opacity projectingover the right lung zone, but no focal lobar consolidation at this time. There are trace bilateral pleural effusions. The cardiomediastinal silhouette is magnified by technique with sternotomy wires. Signed: Jad Isaac MDReport Verified Date/Time: 07/29/2020 12:11:10 Reading Location: [facility] Radiology Reading Room TROPONIN [id number] 11:30:00 Test Item Value Reference Range Interpretation [...] failure, acidosis, acute neurological disease, and persistent tachyarrhythmia.Mate Relief ELIZABETH PABLO MBASIC METABOLIC [id number] 11:26:00 Test Item Value Reference Range Interpretation [...] S NOT APPLICABLE FOR DIALYSIS PATIEN TS. Mate Relief ELIZABETH PABLO MSpecimen slightly ictericHEPATIC FUNCTION [id number] 11:26:00 Test Item Value Reference Range Interpretation [...] (test code = 34 U/L 6-55 347) Mate Relief ELIZABETH PABLO MSpecimen slightly ictericPROTHROMBIN TIME/[id number] 11:23:00 Test Item Value Reference Range Interpretation [...] for patients wiht mechanical heart valves.LACTIC ACID, [id number] 11:20:00 Test Item Value Reference Range Interpretation Comments LACTATE BLOOD VENOUS (2) (BEAKER) 2.31 mmol/L 0.50-2.20 H (test code = 2872) Mate Relief ID - SAMY MSpecimen slightly [id number] 11:16:00 Test Item Value Reference Range Interpretation Comments AMMONIA (BEAKER) 52 mol/L 18-72 Specimen sl ightly (test code = 348) hemolyzed Mate Relief ID [place] PABLO MCT, BRAIN, WITHOUT [id number] 11:14:00Referring: Dr. Yary Eastman/ [place] for exam:->ALTERED MENTAL STATUSWhat is the patient's sedation requirement?->No Sedation [facility] : 1955 Sex: MFINAL REPORT CT, [...] examination is recommended for further characterization. Signed: Brenna Fernandez MDReport Verified Date/Time: 07/29/2020 11:14:58 Reading Location: [address] Neuro Reading Room CBC W/PLT COUNT & AUTO [id number] 11:12:00 Test Item Value Reference Range Interpretation [...] (BEAKER) (test code = 2801) BLOOD GAS, [id number] 11:04:00 Test Item Value Reference Range Interpretation [...] FIO2 (BEAKER) (test code = 1819) 21.0 POCT-GLUCOSE [id number] 10:23:00 Test Item Value Reference Range Interpretation Comments POC-GLUCOSE METER 114 mg/dL 70-110 H : TESTED A T [facility] (BEAKER) (test code = PAR[place], 1538) [address]: Mate Relief/Techni demetrice ID = [id number] for BRENNA HOLDEN FUNGUS CULTURE + [id number] 23:36:00 Test Item Value Reference Range Interpretation Comments CULTURE (BEAKER) (test No fungus isolated in code = 1095) 28 days FUNGUS SMEAR (BEAKER) No fungi seen (test code = 1406) BODY FLUID CULTURE + GRAM [id number] 11:14:00 Test Item Value Reference Range Interpretation Comments CULTURE (BEAKER) (test code No growth = 1095) GRAM STAIN RESULT (BEAKER) <1+ WBCs (test code = 1123) GRAM STAIN RESULT (BEAKER) No organisms seen (test code = 93778) U/S, [id number] 22:47:00Referring: Dr. Yary Eastman/ Beto to be ordered:->Cell CountLabs to be ordered:->Body Fluid Culture (w/Gram Stain, C\\T\\S)Reason for exam:->ascites [facility] : 1955 Sex: MFINAL REPORT Ultrasound guided paracentesis Clinical History: A scites. Sedation: None. Process Controller: Aure Huerta PA-C Supervising Physician: Raul Liao MD [employer] Operator: None. Estimated Blood Loss: < 1 mL. [...] anesthesia was achieved with lidocaine, a 5 Swiss one-step catheter was advanced into the peritoneal cavity under ultrasound guidance. After completion of drainage, the catheterwas removed. There was no evidence of complication. Impression:Successful ultrasound guided paracentesis. Signed: Raul Liaoeport Verified Date/Time: 07/08/2020 22:47:46 Reading Location: [facility] P006J Ultrasound Reading Room BLOOD [id number] 14:01:00 Test Item Value Reference Range Interpretation Comments CULTURE (BEAKER) (test No growth in 5 days code = 1095) BLOOD [id number] 13:02:00 Test Item Value Reference Range Interpretation Comments CULTURE (BEAKER) (test No growth in 5 days code = 1095) TACROLIMUS [id number] 11:01:00 Test Item Value Reference Range Interpretation Comments TACROLIMUS BLOOD 3.4 ng/mL 10.0-20.0 L Test perfor med on Colon (BEAKER) (test code Architec t Immunoassay = 657) system with Chemiluminescen t Microparticle I mmunoassay (CMIA) technolo gy. Mate Relief ID - MARCELLE FCOMPREHENSIVE METABOLIC [id number] 07:32:00 Test Item Value Reference Range Interpretation [...] S NOT APPLICABLE FOR DIALYSIS PATIEN TS. Mate Relief ID - CASEY MCBC W/PLT COUNT & AUTO [id number] 06:57:00 Test Item Value Reference Range Interpretation [...] (BEAKER) (test code = 2801) U/S, ABDOMINAL, [id number] 19:29:00Referring: Dr. Yary Eastman/ KINA doppler for TIPS assessment Reason for exam:->doppler for TIPS assessment [facility] : 1955 Sex: MFINAL REPORT TECHNIQUE: Grayscale [...] Ve rified Date/Time: 07/06/2020 19:29:38 U/S, DUPLEX, [id number] 19:29:00 Referring: Dr. Yary Eastman/ KINA setin for TIPS assessment Reason for exam:->doppler for TIPS assessment [facility] : 1955 Sex: MFINAL REPORT TECHNIQUE: Grayscale [...] normal flow directionality. 3. Cholelithiasis. Signed: Ken Huertaied Date/Time: 07/06/2020 19:29:38 BODY FLUID CELL COUNT WITH DIFFERENTIAL 2020-07-06 18:12:00 Test Item Value Reference Range Interpretation [...] (BEAKER) EDTA Tube (test code = 2873) BODY FLUID CULTURE + GRAM [id number] 13:45:00 Test Item Value Reference Range Interpretation Comments CULTURE (BEAKER) (test code No growth = 1095) GRAM STAIN RESULT (BEAKER) <1+ WBCs (test code = 1123) GRAM STAIN RESULT (BEAKER) No organisms seen (test code = 82998) BODY FLUID CULTURE + GRAM [id number] 13:44:00 Test Item Value Reference Range Interpretation Comments CULTURE (BEAKER) (test code No growth = 1095) GRAM STAIN RESULT (BEAKER) 1+ WBCs (test code = 1123) GRAM STAIN RESULT (BEAKER) No organisms seen (test code = 11975) [id number] 11:44:00Medical Cytology Report Case: [id number] Authorizing Provider: Nicolas Key MD Collected: 07/03/2020 02:54 PM Ordering Location: [facility] Emergency Department Received: 07/04/2020 02:19 PM Pathologist: Angella Delgado MD Specimen: Pa racentesis PERITONEAL FLUID (CYTOSPINS AND CELL BLOCK): - NEGATIVE FOR MALIGNANCY - Mixed inflammation (chronic and acute) Signing Pathologist Direct Phone Line: [phone] signed by Agnella Delgado MD on 07/06/2020 at 11:44 [id number]; common variable immunodeficiency, bronchiectasis/COPD s/p bilateral lung transplant (2016), 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 [facility], Department of Pathology, [address] [place] [address], ErfjrgLucile [facility], Department of Pathology, [address] [place] [address], QvjgcnLucile [facility], Department of Pathology, [address] [place] [address], DAHINVGIUO [id number] 10:33:00 Test Item Value Reference Range Interpretation Comments TACROLIMUS BLOOD 3.2 ng/mL 10.0-20.0 L Test perfor med on Colon (BEAKER) (test code Architec t Immunoassay = 657) system with Chemiluminescen t Microparticle I mmunoassay (CMIA) technolo gy. Mate Relief ID - EMERSONCOMPREHENSIVE METABOLIC [id number] 08:12:00 Test Item Value Reference Range Interpretation [...] S NOT APPLICABLE FOR DIALYSIS PATIEN TS. Mate Relief ID - ADMINSpecimen slightly ictericCBC W/PLT COUNT & AUTO [id number] 08:02:00 Test Item Value Reference Range Interpretation [...] (BEAKER) (test code = 2801) URINALYSIS W/ [id number] 16:50:00 Test Item Value Reference Range Interpretation [...] = 1521) SOURCE(BEAKER) (test code = 2795) Mate Relief ID - [auto]Mate Relief ID - techSODIUM, RANDOM [id number] 16:49:00 Test Item Value Reference Range Interpretation Comments SODIUM URINE (BEAKER) (test code = 27 meq/L 243) Reference Range: No NormalsOperator ID - ADMINALBUMIN PERITONEAL [id number] 15:03:00 Test Item Value Reference Range Interpretation Comments ALBUMIN, PERITONEAL FLUID (BEAKER) 0.8 (test code = 4780623) TACROLIMUS [id number] 11:19:00 Test Item Value Reference Range Interpretation Comments TACROLIMUS BLOOD 2.2 ng/mL 10.0-20.0 L Test perfor med on Colon (BEAKER) (test code Architec t Immunoassay = 657) system with Chemiluminescen t Microparticle I mmunoassay (CMIA) technolo gy. Mate Relief ID - SAMY MCOMPREHENSIVE METABOLIC [id number] 06:56:00 Test Item Value Reference Range Interpretation [...] S NOT APPLICABLE FOR DIALYSIS PATIEN TS. Mate Relief ID - JUNO WSpecimen slightly ictericCBC W/PLT COUNT & AUTO [id number] 05:38:00 Test Item Value Reference Range Interpretation [...] PERCENT (BEAKER) (test code = 2801) SARS-COV2/RT-PCR ([facility])2020-07-04 17:49:00 Test Item Value Reference Range Interpretation Comments SARS-COV2/RT-PCR (test Negative Not Detected, Negative, code = 3671666) See external report for linked test SARS-COV-2 PERFORMING LAB [facility] (test code = 7097056) Negative result for this test determines that [...] 564(g) of the Act.Fact Sheet for Healthcare Providers:https://www.[employer]/sites/default/files/product/documents/Fact_Shee g_BG_Cwrvikfor_Kglh_QYXK-IvD-0.pdfFact Sheet for Healthcare Patients:https://www.[employer]/sites/default/files/product/ documents/Rmbd_Faxyw_Rwmewpuf_Picw_JJJW-SlR-8.pdfPerforming Laboratory:[facility], [place] [id number] 13:40:00 Test Item Value Reference Range Interpretation Comments PHOSPHORUS (BEAKER) (test code = 4.1 mg/dL 2.3-4.7 604) Mate Relief ID - CASEY MRAD, CHEST, 1 VIEW, NON [id number] 12:56:00Referring: Dr. Yary Eastman/ River for exam:->lung transplantShould this be performed at the bedside?->Yes [facility] : 1955 Sex: MFINAL REPORT RAD, [...] MDReport Verified Date/Time: 07/04/2020 12:56:55 Reading Location: [facility] Radiology Reading Room SARS-COV2/RT-PCR ([facility])2020-07-04 09:52:00 Test Item Value Reference Range Interpretation Comments SARS-COV2/RT-PCR (test Negative Not Detected, Negative, code = 6957806) See external report for linked test SARS-COV-2 PERFORMING LAB [facility] (test code = 8631756) Negative result for this test determines that [...] 564(g) of the Act.Fact Sheet for Healthcare Providers:https://www.[employer]/sites/default/files/product/documents/Fact_Shee m_ST_Tlkmzyrfw_Poim_HXAK-ZqW-7.pdfFact Sheet for Healthcare Patients:https://www.[employer]/sites/default/files/product/ documents/Gahv_Rggcq_Hlltfsbq_Hlsr_LPUS-EwO-2.pdfPerforming Laboratory:[facility], [place] [address]VYGCOMQMCBSJN METABOLIC [id number] 07:04:00 Test Item Value Reference Range Interpretation [...] S NOT APPLICABLE FOR DIALYSIS PATIEN TS. Mate Relief ID - PIAYA LSpecimen slightly ictericCBC W/PLT COUNT & AUTO [id number] 06:15:00 Test Item Value Reference Range Interpretation [...] PERCENT (BEAKER) (test code = 2801) U/S, [id number] 19:33:00Referring: Dr. Yary Eastman/ Beto to be ordered:->No Labs NeededLabs to be ordered:->AFBCulture with StainLabs to be ordered:->Body Fluid Culture (w/Gram Stain, C\\T\\S)Labs to be ordered:- >CytologyLabs to be ordered:->Glucose+LDH+ProteinReason for exam:- >HYPOTENSIONReason for exam:->ALTERED MENTAL STATUS [facility] : 1955 Sex: MFINAL REPORT PROCEDURE: Ultrasound-guided paracentesis. INDICATION: Ascites. DESCRIPTION: After obtaining informed written consent, ultrasound scan of the abdomen identified ascites in the right lower quadrant. The overlying skin was prepped and draped in the usual, sterile fashion and local 2% lidocaine anesthesia was administered. A 5 Swiss catheter was advanced into the peritoneal cavity and 2000 mL of clear yellow fluid was removed. The catheter was removed without immediate complication. Samples were sent for analysis. IMPRESSION:Uncomplicated ultrasound-guided paracentesis with 2000 mL of fluid removed. Signed: Yuni Mcmahan MDReport Verified Date/Time: 07/03/2020 19:33:14 Reading Location: [facility] B1 C013Y CT Body Reading Room AMYLASE PERITONEAL [id number] 18:31:00 Test Item Value Reference Range Interpretation Comments AMYLASE, PERITONEAL FLUID (test code = 22 U/L See Comment 6853257) Amylase activity in peritoneal fluids of non-pancreatic origin is often less than or equal to the amylase activity in blood, whereas elevated amylase activity has been reported in fluid of pancreatic origin (five-folds or higher compared to contemporaneously collected blood specimen).This test has been modified from the permaculture designer's instructions and its performance characteristics were determined by [facility]. The laboratory is regulated under CLIA as qualified to perform high-complexity testing. This test has not been cleared or approved by the U.S. Food and Drug Administration. The reference intervals and other method performance specifications are unavailable for amylase in peritoneal fluid. Comparison of this result with the blood amylase is recommended.Mate Relief ID - DBBODY FLUID CELL COUNT WITH [id number] 16:01:00 Test Item Value Reference Range Interpretation [...] FLUID (BEAKER) (test 38 % code = 1656) LYMPHS FLUID (BEAKER) (test code 36 % = 488) MONO/MACROPHAGE FLUID (BEAKER) 26 % (test code = 489) EOSINOPHILS FLUID (BEAKER) (test 0 % code = 491) BASO FLUID (BEAKER) (test code = 0 % 492) CONTAINER BODY FLUID (BEAKER) EDTA Tube (test code = 2873) CT, BRAIN, WITHOUT [id number] 12:39:00Referring: Dr. Yary Eastman/ River for exam:->ALTERED MENTAL STATUSWhat is the patient's sedation requirement?->No Sedation [facility] : 1955 Sex: MFINAL REPORT CT, [...] examination is recommended for further characterization. Signed: Marielena Thompson Verified Date/Time: 07/03/2020 12:39:26 COMPREHENSIVE METABOLIC [...] S NOT APPLICABLE FOR DIALYSIS PATIEN TS. Mate Relief ID - GENARO CSpecimen slightly ictericCBC W/PLT COUNT & AUTO [id number] 12:19:00 Test Item Value Reference Range Interpretation [...] 0-1 PERCENT (BEAKER) (test code = 2801) [id number] 12:09:00 Test Item Value Reference Range Interpretation Comments PARTIAL THROMBOPLASTIN TIME 32.6 seconds 22.5-36.0 (BEAKER) (test code = 760) POCT-GLUCOSE [id number] 12:08:00 Test Item Value Reference Range Interpretation Comments POC-GLUCOSE METER 108 mg/dL 70-110 : TESTED A T [facility] [address] ([facility]) (test code = [place], 1538) [address]: Mate Relief/Techni demetrice ID = [id number] for CL FRED FREIRE PROTHROMBIN TIME/[id number] 12:08:00 Test Item Value Reference Range Interpretation Comments PROTIME ([facility]) (test code = 17.0 seconds 11.9-14.2 H 759) INR ([facility]) (test code = 370) 1.42 <=5.90 Effective 11/26/2018: PT Reference Range ChangeNew: 11.9-14.2 Previous: 11.7- 14.7RECOMMENDED COUMADIN/WARFARIN INR THERAPY RANGESSTANDARD DOSE: 2.0-3.0 Includes: PROPHYLAXIS for venous thrombosis, systemic embolization; TREATMENT for venous thrombosis and/or pulmonary embolus.HIGH RISK: Target INR is2.5-3.5 for patients wiht mechanical heart valves.LACTIC ACID, [id number] 12:06:00 Test Item Value Reference Range Interpretation Comments LACTATE BLOOD VENOUS 1.69 mmol/L 0.50-2.20 Specime n slightly (2) ([facility]) (test hemolyzed code = 2872) Mate Relief ID - GENARO CSpecimen slightly [id number] 11:59:00 Test Item Value Reference Range Interpretation Comments AMMONIA ([facility]) (test code = 348) 61 mol/L 18-72 Mate Relief ID - GENARO [id number] 14:05:00 Test Item Value Reference Range Interpretation Comments POC-CREATININE 2.0 mg/dL 0.6-1.3 H : TESTED AT [facility] ([facility]) (test [address] [facility] code = 1859) [place], [address]: Mate Relief/Techni demetrice ID = [id number] for Edquilang, Yolanda fe POC-EGFR ([facility]) 34 mL/min/1.73M2 (test code = 1860) CMV PCR, [id number] 11:44:00 Test Item Value Reference Range Interpretation Comments CMV VIRAL LOAD - Testing don e at [facility] POSITIVE ([facility]) (test Diag nostics code = 1557) CMV VIRAL LOAD - Testing don e at [facility] NEGATIVE ([facility]) (test Diag nostics code = 2558) BLOOD [id number] 23:00:00 Test Item Value Reference Range Interpretation Comments CULTURE (BEAKER) (test No growth in 5 days code = 1095) BLOOD [id number] 19:01:00 Test Item Value Reference Range Interpretation Comments CULTURE (BEAKER) (test No growth in 5 days code = 1095) TACROLIMUS [id number] 08:47:00 Test Item Value Reference Range Interpretation Comments TACROLIMUS BLOOD 3.6 ng/mL 10.0-20.0 L Test perfor med on Colon (BEAKER) (test code Architec t Immunoassay = 657) system with Chemiluminescen t Microparticle I mmunoassay (CMIA) technolo gy. Mate Relief ID - AAHAMIDBASIC METABOLIC [id number] 06:07:00 Test Item Value Reference Range Interpretation [...] S NOT APPLICABLE FOR DIALYSIS PATIEN TS. Mate Relief ID - CASEY [id number] 06:07:00 Test Item Value Reference Range Interpretation Comments MAGNESIUM (BEAKER) (test code = 1.8 mg/dL 1.6-2.6 627) Mate Relief ID - CASEY MCBC W/PLT COUNT & AUTO [id number] 04:57:00 Test Item Value Reference Range Interpretation [...] = 2801) CBC W/PLT COUNT & AUTO [id number] 06:45:00 Test Item Value Reference Range Interpretation [...] (BEAKER) (test code = 2801) BASIC METABOLIC [id number] 04:53:00 Test Item Value Reference Range Interpretation [...] S NOT APPLICABLE FOR DIALYSIS PATIEN TS. Mate Relief ID - CASEY MCBC W/PLT COUNT & AUTO [id number] 04:31:00 Test Item Value Reference Range Interpretation [...] 0-1 PERCENT (BEAKER) (test code = 2801) [id number] 04:29:00 Test Item Value Reference Range Interpretation Comments MAGNESIUM (BEAKER) (test code = 1.7 mg/dL 1.6-2.6 627) Mate Relief ID - CASEY [id number] 17:55:00 Test Item Value Reference Range Interpretation Comments FERRITIN (BEAKER) (test code = 338.04 ng/mL 5.00-275.00 H 361) Mate Relief ID - BSIRON, TIBC, % SAT. (WITHOUT FERRITIN)2020-06-21 17:42:00 Test Item Value Reference Range Interpretation Comments IRON (BEAKER) (test code = 547) 79.0 ug/dL 40.0-160.0 TOTAL IRON BINDING CAPACITY 74 ug/dL 250-450 L (BEAKER) (test code = 769) IRON % SATURATION (2) (BEAKER) 107 % 20-55 H (test code = 2590) Mate Relief ID - [id number] 11:24:00 Test Item Value Reference Range Interpretation Comments PHOSPHORUS (BEAKER) (test code = 2.0 mg/dL 2.3-4.7 L 604) Mate Relief ID - RUBEN-COV2/RT-PCR ([facility])2020-06-21 09:14:00 Test Item Value Reference Range Interpretation Comments SARS-COV2/RT-PCR (test Negative Not Detected, Negative, code = 5432750) See external report for linked test SARS-COV-2 PERFORMING LAB [facility] (test code = 3955352) Negative result for this test determines that [...] 564(g) of the Act.Fact Sheet for Healthcare Providers:https://www.[employer]/sites/default/files/product/documents/Fact_Sherody mcraet_CS_Chgbuaqkn_Jiyp_ROTJ-UoZ-0.pdfFact Sheet for Healthcare Patients:https://www.[employer]/sites/default/files/product/ documents/Brlk_Qjfff_Werrlokg_Zxun_SYKN-PwB-9.pdfPerforming Laboratory:[facility], [place] [address]WFZPY METABOLIC PANEL 2020-06-21 05:39:00 Test Item Value [...] S NOT APPLICABLE FOR DIALYSIS PATIEN TS. Mate Relief ID - SERGIO LSpecimen slightly [id number] 05:21:00 Test Item Value Reference Range Interpretation Comments MAGNESIUM (BEAKER) (test code = 1.6 mg/dL 1.6-2.6 627) Mate Relief ID - SERGIO LCBC W/PLT COUNT & AUTO [id number] 04:40:00 Test Item Value Reference Range Interpretation [...] (BEAKER) (test code = 2801) LACTIC ACID, [id number] 20:16:00 Test Item Value Reference Range Interpretation Comments LACTATE BLOOD VENOUS (2) (BEAKER) 2.38 mmol/L 0.50-2.20 H (test code = 2872) Mate Relief ID - BSCOMPREHENSIVE METABOLIC [id number] 19:14:00 Test Item Value Reference Range Interpretation [...] S NOT APPLICABLE FOR DIALYSIS PATIEN TS. Mate Relief ID - BSSpecimen slightly [id number] 18:54:00 Test Item Value Reference Range Interpretation Comments PARTIAL THROMBOPLASTIN TIME 37.1 seconds 22.5-36.0 H (BEAKER) (test code = 760) PROTHROMBIN TIME/[id number] 18:53:00 Test Item Value Reference Range Interpretation [...] for patients wiht mechanical heart valves.LACTIC ACID, [id number] 18:48:00 Test Item Value Reference Range Interpretation Comments LACTATE BLOOD VENOUS (2) (BEAKER) 2.89 mmol/L 0.50-2.20 H (test code = 2872) Mate Relief ID - BSCBC W/PLT COUNT & AUTO [id number] 18:38:00 Test Item Value Reference Range Interpretation [...] = 2801) BODY FLUID CELL COUNT WITH [id number] 17:52:00 Test Item Value Reference Range Interpretation [...] Container (BEAKER) (test code = 2873) U/S, [id number] 16:42:00Referring: Dr. Yary Eastman/ Semaj ascitic fluid for cell count and differential If Cr > 1.5, do not remove more than 3.5L of ascitic fluid. If > 3L removed, please administer 200 mL of albumin 25% (50 grams) IV x 1Labs to be ordered:->Cell CountLabs to be ordered:->Other (please add comment)Reason for Exam:->ascites [facility] 1955 Sex: MFINAL REPORT Ultrasound guided paracentesis, 06/17/2020. Clinical History: Ascites. Sedation: None. Process Controller: Lola. Bushing And Broach Operator: None. Estimated Blood Loss: < 1 cc. [...] was achieved with 1% lidocaine, a 5 Swiss one- step catheter was advanced into the peritoneal cavity under ultrasound guidance. After completion of drainage, the catheter was removed. There was no evidence o f complication. Patient Disposition: The patient was discharged from the ultrasound department after the paracentesis, in good condition. Impression:Successful ultrasound guided paracentesis. Signed:Anton Ruth Verified Date/Time: 06/17/2020 16:42:07 Reading Location: [facility] B1 P048 AngioBody Reading Room BASIC METABOLIC [id number] 12:29:00 Test Item Value Reference Range Interpretation [...] S NOT APPLICABLE FOR DIALYSIS PATIEN TS. Mate Relief ID - SERGIO HOWARDpecimen slightly ictericHEPATIC FUNCTION [id number] 11:27:00 Test Item Value Reference Range Interpretation [...] (test code = 27 U/L 6-55 347) Mate Relief ID - SERGIO HOWARDpecimen slightly ictericPROTHROMBIN TIME/[id number] 11:04:00 Test Item Value Reference Range Interpretation [...] mechanical heart valves.CBC W/PLT COUNT & AUTO [id number] 10:57:00 Test Item Value Reference Range Interpretation [...] PERCENT (BEAKER) (test code = 2801) U/S, [id number] 11:34:00Referring: Dr. Yary Eastman/ Semaj ascitic fluid for cell count and differential If Cr > 1.5, do not remove more than 4L of ascitic fluid. If > 3L removed, please administer 200 mL of albumin 25% (50 grams) IV x 1Labs to be ordered:->Other (please add comment)Labs to be ordered:->CellCountReason for Exam:->ascites [facility] : 1955 Sex: MFINAL REPORT Ultrasound guided paracentesis Clinical History: A scites. Sedation: None. Process Controller: Aure Huerta PA-C Supervising Physician: Vu Martinez MD Bushing And Broach Operator: None. Estimated Blood Loss: < 1 mL. [...] anesthesia was achieved with lidocaine, a 5 Swiss one-step catheter was advanced into the peritoneal cavity under ultrasound guidance. After completion of drainage, the catheter was removed. There was no evidence of complication. Impression:Successful ultrasound guided paracentesis. Signed: Vu Martinez MDReport Verified Date/Time: 06/13/2020 11:34:44 Reading Location: [address] Ultrasound Reading Room 11:34 AMBODY FLUID CELL COUNT WITH [id number] 18:14:00 Test Item Value Reference Range Interpretation [...] Container (BEAKER) (test code = 2873) PROTHROMBIN [id number] 13:40:00 Test Item Value Reference Range Interpretation [...] INR is2.5-3.5 for patients wiht mechanical heart valves.[id number] 13:40:00 Test Item Value Reference Range Interpretation Comments PARTIAL THROMBOPLASTIN TIME 36.6 seconds 22.5-36.0 H (BEAKER) (test code = 760) CBC W/PLT COUNT & AUTO [id number] 13:30:00 Test Item Value Reference Range Interpretation [...] 0-1 PERCENT (BEAKER) (test code = 2801) MISCELLANEOUS LAB [id number] 11:48:00 Test Item Value Reference Range Interpretation Comments SCAN RESULT (test code = 7168969) TACROLIMUS [id number] 12:17:00 Test Item Value Reference Range Interpretation Comments TACROLIMUS BLOOD (BEAKER) (test 7.5 ng/mL 10.0-20.0 L code = 657) Mate Relief ID - MARCELLE FPOCT-GLUCOSE [id number] 08:31:00 Test Item Value Reference Range Interpretation Comments POC-GLUCOSE METER 119 mg/dL 70-110 H : TESTED A T [facility] [address] (BEAKER) (test code = PARESH [address] [facility], 1538) [address]: Mate Relief/Techni demetrice ID = [id number] for Be Adams renee BASIC METABOLIC [id number] 06:20:00 Test Item Value Reference Range Interpretation [...] S NOT APPLICABLE FOR DIALYSIS PATIEN TS. Mate Relief ID - [id number] 06:18:00 Test Item Value Reference Range Interpretation Comments MAGNESIUM (BEAKER) (test code = 1.8 mg/dL 1.6-2.6 627) Mate Relief ID - [id number] 06:18:00 Test Item Value Reference Range Interpretation Comments PHOSPHORUS (BEAKER) (test code = 4.2 mg/dL 2.3-4.7 604) Mate Relief ID - EDASIHEPATIC FUNCTION [id number] 06:18:00 Test Item Value Reference Range Interpretation [...] (test code = 15 U/L 6-55 347) Mate Relief ID - EDASICBC W/PLT COUNT & AUTO [id number] 06:07:00 Test Item Value Reference Range Interpretation [...] PERCENT (BEAKER) (test code = 2801) PROTHROMBIN TIME/[id number] 06:04:00 Test Item Value Reference Range Interpretation Comments PROTIME (ANYIAKER) (test code = 22.9 seconds 11.9-14.2 H 759) INR (BEAKER) (test code = 370) 2.08 <=5.90 Effective 11/26/2018: PT Reference Range ChangeNew: 11.9-14.2 Previous: 11.7- 14.7RECOMMENDED COUMADIN/WARFARIN INR THERAPY RANGESSTANDARD DOSE: 2.0-3.0 Includes: PROPHYLAXIS for venous thrombosis, systemic embolization; TREATMENT for venous thrombosis and/or pulmonary embolus.HIGH RISK: Target INR is2.5-3.5 for patients wiht mechanical heart valves.B-TYPE NATRIURETIC FACTOR (BNP) 2020-05-01 06:00:00 Test Item Value Reference Range Interpretation Comments B-TYPE NATRIURETIC PEPTIDE (BEAKER) 996 pg/mL 0-100 H (test code = 700) Mate Relief ID - DBPOCT-GLUCOSE [id number] 13:59:00 Test Item Value Reference Range Interpretation Comments POC-GLUCOSE METER 123 mg/dL 70-110 H : TESTED A T [facility] 6720 ([employer].meAKER) (test code = [facility] [place], 1538) [address]: Mate Relief/Techni demetrice ID = [id number] for JOSE LUIS HOWARD BEL POCT-GLUCOSE [id number] 13:54:00 Test Item Value Reference Range Interpretation Comments POC-GLUCOSE METER 78 mg/dL 70-110 : TESTED A T [facility] [address] ([facility]) (test code = [facility] [place], 1538) [address]: Mate Relief/Techni demetrice ID = [id number] for HARDY JESSIEYOR, KASSY TACROLIMUS [id number] 10:49:00 Test Item Value Reference Range Interpretation Comments TACROLIMUS BLOOD (AKER) (test 10.9 ng/mL 10.0-20.0 code = 657) Mate Relief ID - JUNO WCBC W/PLT COUNT & AUTO [id number] 06:48:00 Test Item Value Reference Range Interpretation Comments WHITE BLOOD CELL COUNT (AKER) 8.4 K/ L 3.5-10.5 (test code = 775) RED BLOOD CELL COUNT (AKER) 2.24 M/ L 4.63-6.08 L (test code [...] (BEAKER) (test code = 2801) BASIC METABOLIC [id number] 06:35:00 Test Item Value Reference Range Interpretation [...] S NOT APPLICABLE FOR DIALYSIS PATIEN TS. Mate Relief ID - CASEY [id number] 06:25:00 Test Item Value Reference Range Interpretation Comments MAGNESIUM (BEAKER) 1.8 mg/dL 1.6-2.6 Specimen slightly (test code = 627) hemolyzed Mate Relief ID - CASEY [id number] 06:25:00 Test Item Value Reference Range Interpretation Comments PHOSPHORUS (BEAKER) 4.5 mg/dL 2.3-4.7 Specimen slightly (test code = 604) hemolyzed Mate Relief ID - CASEY MHEPATIC FUNCTION [id number] 06:25:00 Test Item Value Reference Range Interpretation [...] Specimen slightly (test code = 347) hemolyzed Mate Relief ID - CASEY MB-TYPE NATRIURETIC FACTOR (BNP)2020-04-30 06:20:00 Test Item Value Reference Range Interpretation Comments B-TYPE NATRIURETIC PEPTIDE (BEAKER) 890 pg/mL 0-100 H (test code = 700) Mate Relief ID - EDASIPROTHROMBIN TIME/[id number] 06:11:00 Test Item Value Reference Range Interpretation [...] is2.5-3.5 for patients wiht mechanical heart valves.BLOOD [id number] 21:00:00 Test Item Value Reference Range Interpretation Comments CULTURE (BEAKER) (test No growth in 5 days code = 1095) BLOOD [id number] 21:00:00 Test Item Value Reference Range Interpretation Comments CULTURE (BEAKER) (test No growth in 5 days code = 1095) POCT-GLUCOSE [id number] 12:11:00 Test Item Value Reference Range Interpretation Comments POC-GLUCOSE METER 84 mg/dL 70-110 : [facility] (BEAKER) (test code = [place], 1538) [address]: Mate Relief/Techni demetrice ID = [id number] for Adams Villeda TACROLIMUS [id number] 08:57:00 Test Item Value Reference Range Interpretation Comments TACROLIMUS BLOOD (BEAKER) (test 7.8 ng/mL 10.0-20.0 L code = 657) Mate Relief ID - JUNO WPOCT-GLUCOSE [id number] 08:34:00 Test Item Value Reference Range Interpretation Comments POC-GLUCOSE METER 81 mg/dL 70-110 : TESTED A T [facility] 6720 (BEAKER) (test code = PARESH [place], 1538) [address]: Mate Relief/Techni demetrice ID = [id number] for Adams Villeda BASIC METABOLIC [id number] 07:02:00 Test Item Value Reference Range Interpretation [...] S NOT APPLICABLE FOR DIALYSIS PATIEN TS. Mate Relief ID - EDASIB-TYPE NATRIURETIC FACTOR (BNP)2020-04-29 06:49:00 Test Item Value Reference Range Interpretation Comments B-TYPE NATRIURETIC PEPTIDE (BEAKER) 948 pg/mL 0-100 H (test code = 700) Mate Relief ID - [id number] 06:46:00 Test Item Value Reference Range Interpretation Comments MAGNESIUM (BEAKER) (test code = 1.8 mg/dL 1.6-2.6 627) Mate Relief ID - [id number] 06:46:00 Test Item Value Reference Range Interpretation Comments PHOSPHORUS (BEAKER) (test code = 4.1 mg/dL 2.3-4.7 604) Mate Relief ID - EDASIHEPATIC FUNCTION [id number] 06:46:00 Test Item Value Reference Range Interpretation [...] (test code = 11 U/L 6-55 347) Mate Relief ID - EDASIPROTHROMBIN TIME/[id number] 06:41:00 Test Item Value Reference Range Interpretation [...] mechanical heart valves.CBC W/PLT COUNT & AUTO [id number] 06:40:00 Test Item Value Reference Range Interpretation [...] PERCENT (BEAKER) (test code = 2801) POCT-GLUCOSE [id number] 21:59:00 Test Item Value Reference Range Interpretation Comments POC-GLUCOSE METER 90 mg/dL 70-110 : TESTED A T [facility] 6720 (BEAKER) (test code = [place], 1538) [address]: Mate Relief/Techni demetrice ID = [id number] for KALL ONKAM POCT-GLUCOSE [id number] 17:53:00 Test Item Value Reference Range Interpretation Comments POC-GLUCOSE METER 87 mg/dL 70-110 : TESTED A T [facility] 6720 (KATELYNN) (test code = PARESH Garcia [place], 1538) 120[address]: Mate Relief/Techni demetrice ID = [id number] for Yosi it, Kyaira POCT-GLUCOSE [id number] 12:31:00 Test Item Value Reference Range Interpretation Comments POC-GLUCOSE METER 69 mg/dL 70-110 L : TESTED A T [facility] 6720 (KATELYNN) (test code = [place], 1538) [address]: Mate Relief/Techni demetrice ID = [id number] for Yosi it, Kyaira U/S, PELVIS, WITH [id number] 12:18:00Referring: Dr. Yary Eastman/ [place] for exam:->pre-kidney transplant evaluation of pelvic vessels [facility] : 1955 Sex: MFINAL REPORT TECHNIQUE: [...] by: ALYX VALENTINE MD on 04/28/2020 12:18 PMPOCT-GLUCOSE [id number] 07:43:00 Test Item Value Reference Range Interpretation Comments POC-GLUCOSE METER 85 mg/dL 70-110 : TESTED A T [facility] 6720 ([facility]) (test code = [facility] [place], 1538) [address]: Mate Relief/Techni demetrice ID = [id number] for Adams Villeda POCT-GLUCOSE [id number] 22:13:00 Test Item Value Reference Range Interpretation Comments POC-GLUCOSE METER 79 mg/dL 70-110 : Notified RN/MD: TESTED ([facility]) (test code = AT [facility] 6720 [facility] 1538) [facility], [facility] 30: Mate Relief/Techni demetrice ID = [id number] for KENNETH MORAES POCT-GLUCOSE [id number] 18:06:00 Test Item Value Reference Range Interpretation Comments POC-GLUCOSE METER 105 mg/dL 70-110 : [facility] ([facility]) (test code = [facility] [place], 1538) [address]: Mate Relief/Techni demetrice ID = [id number] for KWASI GARCIA, IRIS [id number] 17:07:00 Test Item Value Reference Range Interpretation Comments ACTIVATED CLOTTING TIME 147 sec : 74 -137 seconds, ([facility]) (test code = Baseli ne: TESTED AT [facility]) [facility] 6720 [facility], [facility] 30: Mate Relief/Techni demetrice ID = [id number] for BA TTAD, SEMAJ POCT-GLUCOSE [id number] 17:05:00 Test Item Value Reference Range Interpretation Comments POC-GLUCOSE METER 127 mg/dL 70-110 H : TESTED A T [facility] 6720 ([facility]) (test code [facility], = 1538) 6[address]: Mate Relief/Techni demetrice ID = [id number] for CONR OD DUPLECHIAN (V), DYLLAN HEMOGLOBIN AND [id number] 17:00:00 Test Item Value Reference Range Interpretation Comments HEMOGLOBIN (BEAKER) (test code = 8.3 GM/DL 13.7-17.5 L 410) HEMATOCRIT ([facility]) (test code = 24.8 % 40.1-51.0 L 411) Mate Relief ID - 6000POCT-GLUCOSE [id number] 15:34:00 Test Item Value Reference Range Interpretation Comments POC-GLUCOSE METER 132 mg/dL 70-110 H : TESTED A T [facility] 6720 ([facility]) (test code = [facility] [place], 153) 313[address]: Mate Relief/Techni demetrice ID = [id number] for BA TTAD, SEMAJ POCT-GLUCOSE [id number] 15:23:00 Test Item Value Reference Range Interpretation Comments POC-GLUCOSE METER 63 mg/dL 70-110 L : TESTED A T [facility] 6720 ([facility]) (test code = [facility] [place], 153) [address]: Mate Relief/Techni demetrice ID = [id number] for MARCUS MORALES [id number] 14:00:00 Test Item Value Reference Range Interpretation Comments ACTIVATED CLOTTING TIME 252 sec : 74 -137 seconds, ([facility]) (test code = Baseli ne: TESTED AT 441) [facility] 6720 [facility], 770 30: Mate Relief/Techni demetrice ID = [id number] for AMANDEEP DAVIDRodyOrtiz POCT-GLUCOSE [id number] 11:36:00 Test Item Value Reference Range Interpretation Comments POC-GLUCOSE METER 75 mg/dL 70-110 : TESTED A T [facility] 6720 ([facility]) (test code = [facility] [place], 153) 14[address]: Mate Relief/Techni demetrice ID = [id number] for LO GUERRERO POCT-GLUCOSE [id number] 10:10:00 Test Item Value Reference Range Interpretation Comments POC-GLUCOSE METER 79 mg/dL 70-110 : TESTED A T [facility] 6720 ([facility]) (test code = [facility] [place], 153) [address]: Mate Relief/Techni demetrice ID = [id number] for MORG AN, IRIS TACROLIMUS [id number] 09:38:00 Test Item Value Reference Range Interpretation Comments TACROLIMUS BLOOD ([facility]) (test 12.2 ng/mL 10.0-20.0 code = 657) Mate Relief ID - SAMY MCKEEBASIC METABOLIC [id number] 06:45:00 Test Item Value Reference Range Interpretation [...] S NOT APPLICABLE FOR DIALYSIS PATIEN TS. Mate Relief ID - EDASISpecimen slightly [id number] 06:43:00 Test Item Value Reference Range Interpretation Comments MAGNESIUM (BEAKER) (test code = 1.8 mg/dL 1.6-2.6 627) Mate Relief ID - [id number] 06:43:00 Test Item Value Reference Range Interpretation Comments PHOSPHORUS (BEAKER) (test code = 4.2 mg/dL 2.3-4.7 604) Mate Relief ID - EDASIHEPATIC FUNCTION [id number] 06:43:00 Test Item Value Reference Range Interpretation [...] (test code = 11 U/L 6-55 347) Mate Relief ID - EDASISpecimen slightly ictericB-TYPE NATRIURETIC FACTOR (BNP) 2020-04-27 06:40:00 Test Item Value Reference Range Interpretation Comments B-TYPE NATRIURETIC PEPTIDE (BEAKER) 871 pg/mL 0-100 H (test code = 700) Mate Relief ID - ELIZABETHAYA LCBC W/PLT COUNT & AUTO [id number] 06:38:00 Test Item Value Reference Range Interpretation [...] PERCENT (BEAKER) (test code = 2801) PROTHROMBIN TIME/[id number] 06:26:00 Test Item Value Reference Range Interpretation [...] is2.5-3.5 for patients wiht mechanical heart valves.POCT-GLUCOSE [id number] 19:59:00 Test Item Value Reference Range Interpretation Comments POC-GLUCOSE METER 108 mg/dL 70-110 : TESTED A T [facility] 6720 (BEAKER) (test code = [place], 1538) 83773: Mate Relief/Techni demetrice ID = [id number] for Ba iley, Lesa U/S, ABDOMINAL, [id number] 17:14:00Referring: Dr. Yary Eastman/ [place]au[place] Liver lesions, and Hepatic Vasculature with Doppler. Determine amount of ascites - to determine need for ParacentesisReason for exam:- >Evaluate Liver lesions, and Hepatic Vasculature with DopplerHx of Liver cystReason for exam:->Determine amount of ascites - to determine need for ParacentesisShould this be performed at the bedside?->Yes [facility] 1955 Sex: MFINAL REPORT TECHNIQUE: [...] MDReport Verified Date/Time: 04/26/2020 17:14:41 U/S, DUPLEX, [id number] 17:14:00Referring: Dr. Yary Eastman/ [place] for exam:->Eval liver lesions and hepatic vasculature wDopplers- Determine amt of ascites to determine for paracentesisShould this be performed [facility] : 1955 Sex: MFINAL REPORT TECHNIQUE: Grayscale ultrasound of the abdomen with color Doppler and spectral Doppler ultrasound of the portal/hepatic vasculature. INDICATION: 64-year-old man with metabolic acidosis, acute kidney injury, generalized weakness, fatigue, and hypervolemia. COMPARISON: Abdomen ultrasound 02/24/2020, abdomen MRI 05/13/2019. FINDINGS: LIVER: Suboptimal stevenson luation of the left hepatic lobe secondary to [...] medical renal disease. Cholelithiasis. Signed: Alyx Valentine [facility] CENTEReport Verified Date/Time: 04/26/2020 17:14:41 POCT-GLUCOSE [id number] 12:29:00 Test Item Value Reference Range Interpretation Comments POC-GLUCOSE METER 100 mg/dL 70-110 : TESTED A T [facility] 6720 (BEAKER) (test code = [place], 1538) 105[address]: Mate Relief/Techni demetrice ID = [id number] for Adams Ordaz [id number] 10:27:00 Test Item Value Reference Range Interpretation Comments HAPTOGLOBIN (BEAKER) (test code = 15 mg/dL 14-258 366) Mate Relief ID - ROSIANGCBC W/PLT COUNT & AUTO [id number] 10:04:00 Test Item Value Reference Range Interpretation [...] (test code = 413) VITAMIN B12 AND [id number] 10:02:00 Test Item Value Reference Range Interpretation Comments VITAMIN B12 (BEAKER) (test code = 1346 pg/mL 213-816 H 774) FOLATE (BEAKER) (test code = 362) 9.20 ng/mL >=7.00 Mate Relief ID - RM(CELLAVISION MANUAL DIFF)2020-04-26 10:00:00 Test Item Value Reference [...] CONCENTRATION Decreased (CELLAVISION)(BEAKER) (test code = 3438) Mate Relief ID - 6000Operator ID - Sadia Reeder comments: Slide comments: RETICULOCYTE [id number] 08:41:00 Test Item Value Reference Range Interpretation Comments RETICULOCYTE COUNT PCT (BEAKER) (test 3.2 % 0.5-1.8 H code = 575) Mate Relief ID - 6000CBC W/PLT COUNT & AUTO [id number] 08:35:00 Test Item Value Reference Range Interpretation [...] /100 WBC 0-0 (test code = 413) LACTATE DEHYDROGENASE (LDH)2020-04-26 08:34:00 Test Item Value Reference Range Interpretation Comments LACTATE DEHYDROGENASE 156 U/L 125-220 Specim en slightly (BEAKER) (test code = hemoly zed 635) Mate Relief ID - ROSIANGTACROLIMUS [id number] 08:33:00 Test Item Value Reference Range Interpretation Comments TACROLIMUS BLOOD (BEAKER) (test 5.6 ng/mL 10.0-20.0 L code = 657) Mate Relief ID - JUNO WPOCT-GLUCOSE [id number] 07:58:00 Test Item Value Reference Range Interpretation Comments POC-GLUCOSE METER 87 mg/dL 70-110 : [facility] (BEAKER) (test code = [place], 1538) [address]: Mate Relief/Techni demetrice ID = [id number] for Adams Villeda [id number] 06:19:00 Test Item Value Reference Range Interpretation Comments MAGNESIUM (BEAKER) 2.0 mg/dL 1.6-2.6 Specimen slightly (test code = 627) hemolyzed Mate Relief ID - [id number] 06:19:00 Test Item Value Reference Range Interpretation Comments PHOSPHORUS (BEAKER) 5.4 mg/dL 2.3-4.7 H Specimen slightly (test code = 604) hemolyzed Mate Relief ID - edasiHEPATIC FUNCTION [id number] 06:19:00 Test Item Value Reference Range Interpretation [...] Specimen slightly (test code = 347) hemolyzed Mate Relief ID - edasiBASIC METABOLIC [id number] 06:19:00 Test Item Value Reference Range Interpretation [...] S NOT APPLICABLE FOR DIALYSIS PATIEN TS. Mate Relief ID - edasiB-TYPE NATRIURETIC FACTOR (BNP)2020-04-26 06:14:00 Test Item Value Reference Range Interpretation Comments B-TYPE NATRIURETIC PEPTIDE (BEAKER) 616 pg/mL 0-100 H (test code = 700) Mate Relief ID - edasiPROTHROMBIN TIME/[id number] 05:58:00 Test Item Value Reference Range Interpretation [...] is2.5-3.5 for patients wiht mechanical heart valves.POCT-GLUCOSE [id number] 22:18:00 Test Item Value Reference Range Interpretation Comments POC-GLUCOSE METER 90 mg/dL 70-110 : TESTED A T [facility] 6720 (BEAKER) (test code = [place], 1538) [address]: Mate Relief/Techni demetrice ID = [id number] for Lesa Kay BLOOD GAS, [id number] 21:59:00 Test Item Value Reference Range Interpretation [...] FIO2 (BEAKER) (test code = 1819) 21.0 [id number] 21:00:00 Test Item Value Reference Range Interpretation Comments FERRITIN (BEAKER) (test code = 150.49 ng/mL 5.00-275.00 361) Mate Relief ID - BSVITAMIN D, [id number] 20:47:00 Test Item Value Reference Range Interpretation [...] 47 % 20-55 (test code = 2590) Mate Relief ID - DBPOCT-GLUCOSE [id number] 15:26:00 Test Item Value Reference Range Interpretation Comments POC-GLUCOSE METER 84 mg/dL 70-110 : TESTED A T [facility] 6720 (BEAKER) (test code = [facility] [place], 1538) [address]26[address]: Mate Relief/Techni demetrice ID = [id number] for ARNAUD KINSEY POCT-GLUCOSE [id number] 11:35:00 Test Item Value Reference Range Interpretation Comments POC-GLUCOSE METER 89 mg/dL 70-110 : TESTED A T [facility] 6720 (BEAKER) (test code = [facility] [place], 1538) 12423: Mate Relief/Techni demetrice ID = [id number] for GAIL ZHOU TACROLIMUS [id number] 10:55:00 Test Item Value Reference Range Interpretation Comments TACROLIMUS BLOOD (BEAKER) (test 9.5 ng/mL 10.0-20.0 L code = 657) Mate Relief ID [place] IBANEZ FTACROLIMUS [id number] 10:55:00 Test Item Value Reference Range Interpretation Comments TACROLIMUS BLOOD (BEAKER) (test 11.4 ng/mL 10.0-20.0 code = 657) Mate Relief ID [place] IBANEZ FPOCT-GLUCOSE [id number] 07:51:00 Test Item Value Reference Range Interpretation Comments POC-GLUCOSE METER 110 mg/dL 70-110 : TESTED A T [facility] 6720 (BEAKER) (test code = [facility] [place], 1538) 03582: Mate Relief/Techni demetrice ID = [id number] for HERACLIO NGUYEN, AGLAE [id number] 06:18:00 Test Item Value Reference Range Interpretation Comments FIBRINOGEN LEVEL (BEAKER) (test 282 mg/dl 225-434 code = 658) IMMUNOGLOBULIN A (IGA)2020-04-25 06:10:00 Test Item Value Reference Range Interpretation Comments IMMUNOGLOBULIN A (IGA) (BEAKER) (test < mg/dL 63-484 L code = 639) Mate Relief ELIZABETH HILL LIMMUNOGLOBULIN G (IGG)2020-04-25 06:10:00 Test Item Value Reference Range Interpretation Comments IMMUNOGLOBULIN G (IGG) (BEAKER) (test < mg/dL 540-1,822 L code = 427) Mate Relief ELIZABETH HILL LIMMUNOGLOBULIN M (IGM)2020-04-25 06:10:00 Test Item Value Reference Range Interpretation Comments IMMUNOGLOBULIN M (IGM) (BEAKER) (test < mg/dL 22-293 L code = 638) Mate Relief ID - SERGIO LOperator ID - SERGIO LLACTIC ACID, [id number] 06:09:00 Test Item Value Reference Range Interpretation Comments LACTATE BLOOD VENOUS (2) (BEAKER) 1.08 mmol/L 0.50-2.20 (test code = 2872) Mate Relief ID - SERGIO LSpecimen slightly ictericB-TYPE NATRIURETIC FACTOR (BNP) 2020-04-25 04:54:00 Test Item Value Reference Range Interpretation Comments B-TYPE NATRIURETIC PEPTIDE (BEAKER) 699 pg/mL 0-100 H (test code = 700) Mate Relief ID - SERGIO LBASIC METABOLIC [id number] 04:49:00 Test Item Value Reference Range Interpretation [...] S NOT APPLICABLE FOR DIALYSIS PATIEN TS. Mate Relief ID - SERGIO LSpecimen slightly [id number] 04:45:00 Test Item Value Reference Range Interpretation Comments MAGNESIUM (BEAKER) (test code = 2.2 mg/dL 1.6-2.6 627) Mate Relief ID - SERGIO [id number] 04:45:00 Test Item Value Reference Range Interpretation Comments PHOSPHORUS (BEAKER) (test code = 5.4 mg/dL 2.3-4.7 H 604) Mate Relief ID [place] LHEPATIC FUNCTION [id number] 04:45:00 Test Item Value Reference Range Interpretation [...] (test code = 15 U/L 6-55 347) Mate Relief ID [place] LSpecimen slightly [id number] 04:45:00 Test Item Value Reference Range Interpretation Comments LIPASE (BEAKER) (test code = 749) 222 U/L 8-78 H Mate Relief ID - SEGRIO Cifuentesimen slightly ictericPROTHROMBIN TIME/[id number] 04:35:00 Test Item Value Reference Range Interpretation [...] mechanical heart valves.CBC W/PLT COUNT & AUTO [id number] 04:29:00 Test Item Value Reference Range Interpretation [...] % 0-1 PERCENT (BEAKER) (test code = 2809) SARS-COV2/RT-PCR ([facility])2020-04-25 04:12:00 Test Item Value Reference Range Interpretation Comments SARS-COV2/RT-PCR (test code Negative Not Detected, Negative, = 1106792) See external report for linked test SARS-COV-2 PERFORMING LAB [facility] (test code = 2875618) Negative results do not preclude SARS-CoV-2 infection [...] of the Act.Fact Sheet for Healthcare Pro viders:https://www.[employer]/Documents/Xpert%20Xpress%20SARS%20CoV-2/Fact%20Sh eets/3023802%79SJIF-YUH-6%20HEALTHCARE%20PROVIDERS%20FACT%20SHEET.pdfFact Sheet for Healthcare Patients:https://www.[employer]/Documents/Xpert%20Xpress%20SARS%20CoV-2/Fact%20Sheets/3023801%20SARS-COV -2%20PATIENT%20FACT%20SHEET.pdfPerforming Laboratory:[facility], [place] [address]NLD, ABDOMEN/KUB, 1 VIEW [id number] 01:28:00Referring: Dr. Yary Eastman/ [place] for exam:->abdominal pain [facility] 1955 Sex: MFINAL REPORT CLINICAL [...] Karissa Romero MDReport Verified Date/Time: 04/25/2020 01:28:39 U/S, RENAL, [id number] 01:26:00Referring: Dr. Yary Eastman/ Alexandra include bladder as wellReason for exam:->NOHEMI on CKD [facility] : 1955 Sex: MFINAL REPORT Renal [...] Karissa Romero MDReport Verified Date/Time: 04/25/2020 01:26:38 POCT-GLUCOSE METER 2020-04-25 00:44:00 Test Item Value Reference Range Interpretation Comments POC-GLUCOSE METER 177 mg/dL 70-110 H : TESTED A T [facility] 6720 ([employer]) (test code = [facility] [place], 1538) [address]: Mate Relief/Techni demetirce ID = [id number] for CE BALLOS, TAN POCT-GLUCOSE [id number] 23:52:00 Test Item Value Reference Range Interpretation Comments POC-GLUCOSE METER 99 mg/dL 70-110 : TESTED A T [facility] 6720 ([employer]me[employer]) (test code = [facility] [place], 1538) [address]: Mate Relief/Techni demetrice ID = [id number] for CEBA LLOS, TAN PROTEIN, RANDOM [id number] 22:02:00 Test Item Value Reference Range Interpretation Comments PROTEIN, URINE ([employer]me[employer]) (test code = < mg/dL 0-14 1569) Mate Relief ID - DBUREA NITROGEN, RANDOM [id number] 22:01:00 Test Item Value Reference Range Interpretation Comments UREA NITROGEN URINE ([facility]) (test 367 mg/dL code = 538) Reference Range: No NormalsOperator ID - DBCHLORIDE, RANDOM [id number] 22:01:00 Test Item Value Reference Range Interpretation Comments CHLORIDE URINE (BEAKER) (test code = 67 meq/L 682) Reference Range: No NormalsOperator ID - DBCREATININE, RANDOM [id number] 22:01:00 Test Item Value Reference Range Interpretation Comments CREATININE URINE (BEAKER) (test 85.6 mg/dL code = 375) Reference Range: No NormalsOperator ID - DBPOTASSIUM, RANDOM [id number] 22:01:00 Test Item Value Reference Range Interpretation Comments POTASSIUM URINE (BEAKER) (test 21.7 meq/L code = 195) Reference Range: No NormalsOperator ID - DBSODIUM, RANDOM [id number] 22:01:00 Test Item Value Reference Range Interpretation [...] /LPF 514) SOURCE(BEAKER) (test code = 2795) Mate Relief ID - [auto]Mate Relief ID - techLACTIC ACID, [id number] 21:32:00 Test Item Value Reference Range Interpretation Comments LACTATE BLOOD VENOUS (2) (ANYIAKER) 1.05 mmol/L 0.50-2.20 (test code = 2872) Mate Relief ID - DBSpecimen slightly ictericT4, [id number] 20:07:00 Test Item Value Reference Range Interpretation Comments FREE T4 (KATELYNN) (test code = 655) 0.55 ng/dL 0.70-1.48 L Mate Relief ID - [id number] 20:02:00 Test Item Value Reference Range Interpretation Comments PROCALCITONIN (KATELYNN) (test code 5.20 ng/mL <0.05 H = 3036) SEPSIS RISK (ng/mL)Low: 0.05-0.50Intermediate: 0.51-2.00High: >=2.01TROPONIN [id number] 19:34:00 Test Item Value Reference Range Interpretation Comments TROPONIN I (ANYIAKER) (test code = 397) < ng/mL 0.00-0.03 [...] failure, acidosis, acute neurological disease, and persistent tachyarrhythmia.Mate Relief ID - DBTSH/FREE T4 IF INDICATED 2020-04-24 19:33:00 Test Item Value Reference Range Interpretation Comments THYROID STIMULATING HORMONE 5.602 uIU/mL 0.350-4.940 H ([employer]) (test code = 772) Mate Relief ID - DBRAD, CHEST, 2 [id number] 19:10:00Referring: Dr. Yary Eastman/ [place] for exam:->[facility] : 1955 Sex: MFINAL REPORT RAD, [...] Jed Guadarrama MDReport Verified Date/Time: 04/24/2020 19:10:21 B-TYPE NATRIURETIC FACTOR (BNP)2020-04-24 19:09:00 Test Item Value Reference Range Interpretation Comments B-TYPE NATRIURETIC PEPTIDE (BEAKER) 619 pg/mL 0-100 H (test code = 700) Mate Relief ID - DBCOMPREHENSIVE METABOLIC [id number] 18:53:00 Test Item Value Reference Range Interpretation [...] S NOT APPLICABLE FOR DIALYSIS PATIEN TS. [employer] ID - DBSpecimen slightly [id number] 18:49:00 Test Item Value Reference Range Interpretation Comments PARTIAL THROMBOPLASTIN TIME 40.9 seconds 22.5-36.0 H (BEAKER) (test code = 760) PROTHROMBIN TIME/[id number] 18:48:00 Test Item Value Reference Range Interpretation [...] for patients wiht mechanical heart valves.LACTIC ACID, [id number] 18:47:00 Test Item Value Reference Range Interpretation Comments LACTATE BLOOD VENOUS (2) (BEAKER) 1.10 mmol/L 0.50-2.20 (test code = 2872) [facility] ID - DBSpecimen slightly ictericBLOOD GAS, [id number] 18:42:00 Test Item Value Reference Range Interpretation [...] 1819) 21.0 CBC W/PLT COUNT & AUTO [id number] 18:39:00 Test Item Value Reference Range Interpretation [...] 0-1 PERCENT (BEAKER) (test code = 2801) MYOCARD IMAGING, MULTI, PHARM, [id number] 15:55:00Referring: Dr. Yary Eastman/ [place]e Reason for Exam - Click Yes and Enter Reason Below->Ye sUnlisted Reason for Exam->liver [facility] : 1955 Sex: MFINAL REPORT PROCEDURE: Rest/Stress MYOCARDIAL PERFUSION SPECT with regadenoson\\XA9\\ CPT CODE: 10338 INDICATION: Preoperative evaluation for liver transplant PROTOCOL: [...] MDReport Verified Date/Time: 04/19/2020 15:55:39 Reading Location: [address] Reading Room MISCELLANEOUS LAB [id number] 12:14:00 Test Item Value Reference Range Interpretation Comments SCAN RESULT (test code = 3659535) T SPOT [id number] 13:21:00 Test Item Value Reference Range Interpretation Comments T-SPOT TB (BEAKER) (test code = Negative 1683) NEG CONTROL SPOT COUNT (BEAKER) 0 (test code = 1684) PANEL A SPOT (BEAKER) (test code = 1 1685) PANEL B SPOT (BEAKER) (test code = 1 1686) POS CONTROL SPOT CT (BEAKER) (test 0 code = 1687) SCAN RESULT (test code = 8583649) [id number] 12:43:00 Test Item Value Reference Range Interpretation Comments T3 TOTAL (BEAKER) (test code = 656) 36 ng/dL 48-159 L VARICELLA ZOSTER ANTIBODY, [id number] 09:11:00 Test Item Value Reference Range Interpretation Comments VARICELLA ZOSTER IGG (AL) (BEAKER) 0.9 (test code = 3197) VARICELLA ZOSTER RESULT INTERPRETATIONS: <=0.8 Al Nonreactive: Presumed non-immune to VZV 0.9-1.0 Al Equivocal >=1.1 Al Reactive: Presumed immune to VZVCYTOMEGALOVIRUS ANTIBODY, [id number] 08:17:00 Test Item Value Reference Range Interpretation Comments CYTOMEGALOVIRUS IGM ANTIBODY Negative Negative, Equivocal (BEAKER) (test code = 3437) CMV IgM Result Interpretation: </= 0.8 Al Negative 0.9-1.0 Al Equivocal >/= 1.1 Al PositiveEBV ANTIBODY, [id number] 08:17:00 Test Item Value Reference Range Interpretation Comments ELINA JOYNER VIRAL CAPSID Negative Negative, Equivocal ANTIGEN IGM (Cvgram.meAKER) (test code = 3418) Elina Joyner Viral Capsid Antigen IgM Result Interpretation: </= 0.8 Al Negative 0.9-1.0 Al Equivocal >/= 1.1 Al PositiveRUBELLA ANTIBODY, IGG 2020-04-07 08:17:00 Test Item Value Reference Range Interpretation Comments RUBELLA IGG QUANTITATION (Cvgram.meAKER) 9.0 IU/mL <8.0 (test code = 572) Rubella IgG Result Interpretation: </= 7.0 IU/mL Negative - Presumed non- immune 8.0 - 9.9 IU/mL Equivocal >= 10.0 IU/mL Positive - Presumed immune RAD, MANDIBLE, MIN 4 [id number] 13:44:00Referring: Dr. Yary Eastman/ [place] for Exam:->liver [...] Javed Paez MDReport Verified Date/Time: 04/06/2020 13:44:20 RAD, CHEST, 2 [id number] 13:27:00Referring: Dr. Yary Eastman/ [place] for Exam:->liver transplant evaluationFINAL REPORT CHEST PA AND LATERAL COMPARISON STUDY: 02/23/2020 History provided: Liver transplantation evaluation Heart size normal. Prior sternotomy. Chronic blunting of the right costophrenic angle probably due to pleural thickening. Lungs clear and vascularity normal. Signed: Moreno Wilkes Verified Date/Time: 04/06/2020 13:27:52 Reading Location: [facility] Radiology Reading Room RAD, BONE DENSITY [id number] 12:40:00Referring: Dr. Yary Eastman/ [place] for Exam:->liver [...] witha high risk of fracture. Signed: Javed Paezort Verified Date/Time: 04/06/2020 12:40:47 CRYPTOCOCCAL [id number] 11:19:00 Test Item Value Reference Range Interpretation Comments CRYPTOCOCCAL ANTIGEN, SERUM Negative Negative, Interference (BEAKER) (test code = 1828) [id number] 11:16:00 Test Item Value Reference Range Interpretation Comments RPR SCREEN (BEAKER) (test code = Nonreactive Nonreactive 420) [id number] 10:35:00 Test Item Value Reference Range Interpretation Comments T4 TOTAL (BEAKER) (test code = 895) 3.8 ug/dL 4.9-11.7 L Mate Relief ID - GENARO CHEPATITIS A ANTIBODY, [id number] 09:39:00 Test Item Value Reference Range Interpretation Comments HEPATITIS A IGG ANTIBODY (BEAKER) Reactive Nonreactive A (test code = 2797) Mate Relief ID - GENARO [id number] 09:39:00 Test Item Value Reference Range Interpretation Comments PROSTATE SPECIFIC ANTIGEN (BEAKER) 0.0 ng/mL 0.0-4.0 (test code = 844) Mate Relief ID - GENARO [id number] 09:39:00 Test Item Value Reference Range Interpretation Comments THYROID STIMULATING HORMONE 4.994 uIU/mL 0.350-4.940 H (BEAKER) (test code = 772) Mate Relief ID - GENARO CCARCINOEMBRYONIC ANTIGEN (CEA)2020-04-06 09:26:00 Test Item Value Reference Range Interpretation Comments CARCINOEMBRYONIC ANTIGEN (BEAKER) 3.6 ng/mL 0.0-5.0 (test code = 685) Mate Relief ID - GENARO CHEPATITIS B CORE ANTIBODY, [id number] 09:26:00 Test Item Value Reference Range Interpretation Comments HEPATITIS B CORE IGM ANTIBODY Nonreactive Nonreactive (BEAKER) (test code = 645) Mate [facility] ID - GENARO CHEPATITIS A ANTIBODY, [id number] 09:26:00 Test Item Value Reference Range Interpretation Comments HEPATITIS A IGM ANTIBODY (BEAKER) Nonreactive Nonreactive (test code = 498) Mate Relief ID - GENARO CHEPATITIS B CORE ANTIBODY, [id number] 09:26:00 Test Item Value Reference Range Interpretation Comments HEPATITIS B CORE TOTAL ANTIBODY Nonreactive Nonreactive (BEAKER) (test code = 497) Mate Relief ID - GENARO CHEPATITIS B SURFACE [id number] 09:23:00 Test Item Value Reference Range Interpretation Comments HEPATITIS B SURFACE ANTIGEN (2) Nonreactive Nonreactive (BEAKER) (test code = 2585) Specimen is considered negative for HBsAg.HEPATITIS B SURFACE [id number] 09:23:00 Test Item Value Reference Range Interpretation Comments HEPATITIS B SURFACE ANTIBODY 60.7 mIU/mL <8.0 H (BEAKER) (test code = 647) Mate [facility] ID - GENARO CHEPATITIS C [id number] 09:23:00 Test Item Value Reference Range Interpretation Comments HEPATITIS C ANTIBODY (BEAKER) Nonreactive Nonreactive (test code = 367) Mate Relief ID - GENARO CHIV-1 ANTIGEN WITH HIV-1/2 [id number] 09:23:00 Test Item Value Reference Range Interpretation Comments HIV-1 ANTIGEN WITH HIV 1\\T\\2 Nonreactive Nonreactive ANTIBODY (2) (BEAKER) (test code = 2586) Mate Relief ID - GENARO CVITAMIN D, 64-[id number] 09:20:00 Test Item Value Reference Range Interpretation Comments VITAMIN D 25-OH (BEAKER) (test 12.7 ng/mL 6.6-49.9 code = 2764) Effective 04/10/2017: Reference Range ChangeNew: 6.6-49.9 ng/mL Previous: 13.0-47.8 ng/mLRecommended Vitamin D Target Range: 30.0-40.0 ng/mLOperator ID - GENARO CCOMPREHENSIVE METABOLIC [id number] 09:05:00 Test Item Value Reference Range Interpretation [...] S NOT APPLICABLE FOR DIALYSIS PATIEN TS. Mate Relief ID - GENARO [id number] 09:01:00 Test Item Value Reference Range Interpretation Comments TRANSFERRIN (BEAKER) (test code = 134 mg/dL 174-382 L 541) Mate [facility] ID - GENARO CURIC [id number] 08:57:00 Test Item Value Reference Range Interpretation Comments URIC ACID (BEAKER) (test code = 15.2 mg/dL 2.6-7.2 H 773) Mate Relief ID - GENARO [id number] 08:57:00 Test Item Value Reference Range Interpretation Comments MAGNESIUM (BEAKER) (test code = 2.4 mg/dL 1.6-2.6 627) Mate Relief ID - GENARO [id number] 08:57:00 Test Item Value Reference Range Interpretation Comments PHOSPHORUS (BEAKER) (test code = 3.0 mg/dL 2.3-4.7 604) Mate Relief ID - GENARO CLIPID [id number] 08:57:00 Test Item Value Reference Range Interpretation [...] Borderline 130-159 High 160-189 Very High >=190 Mate Relief ID - GENARO CBILIRUBIN, [id number] 08:57:00 Test Item Value Reference Range Interpretation Comments BILIRUBIN DIRECT (BEAKER) (test 0.9 mg/dL 0.1-0.5 H code = 706) Mate Relief ID - GENARO CGAMMA GLUTAMYL TRANSFERASE (GGT)2020-04-06 08:57:00 Test Item Value Reference Range Interpretation Comments GAMMA GLUTAMYL TRANSFERASE (BEAKER) 46 U/L 9-64 (test code = 364) Mate Relief ID - GENARO [id number] 08:57:00 Test Item Value Reference Range Interpretation Comments ETHANOL (BEAKER) (test code = 400) < mg/dL <=10 Mate Relief ID - GENARO CCBC W/PLT COUNT & AUTO [id number] 08:56:00 Test Item Value Reference Range Interpretation [...] (BEAKER) (test code = 2801) URINALYSIS W/ [id number] 08:49:00 Test Item Value Reference Range Interpretation [...] /LPF 514) SOURCE(BEAKER) (test code = 2795) Mate Relief ID - [auto]Mate Relief ID - [id number] 08:48:00 Test Item Value Reference Range Interpretation Comments PARTIAL THROMBOPLASTIN TIME 33.4 seconds 22.5-36.0 (BEAKER) (test code = 760) [id number] 08:48:00 Test Item Value Reference Range Interpretation Comments FIBRINOGEN LEVEL (BEAKER) (test 163 mg/dl 225-434 L code = 658) PROTHROMBIN TIME/[id number] 08:47:00 Test Item Value Reference Range Interpretation [...] is2.5-3.5 for patients wiht mechanical heart valves.CALCIUM, [id number] 08:32:00 Test Item Value Reference Range Interpretation Comments CALCIUM IONIZED (BEAKER) (test 1.15 mmol/L 1.12-1.27 code = 698) PH, BLOOD (BEAKER) (test code = 7.33 1810) TACROLIMUS [id number] 08:39:00 Test Item Value Reference Range Interpretation Comments TACROLIMUS BLOOD (BEAKER) (test 8.3 ng/mL 10.0-20.0 L code = 657) Mate Relief ID - RMALPHA FETOPROTEIN (AFP), TUMOR [id number] 19:02:00 Test Item Value Reference Range Interpretation Comments ALPHA-FETOPROTEIN (BEAKER) (test 3.0 ng/mL <10.0 code = 1094) Mate Relief ID - BSBASIC METABOLIC [id number] 17:37:00 Test Item Value Reference Range Interpretation [...] S NOT APPLICABLE FOR DIALYSIS PATIEN TS. Mate Relief ID - BSSpecimen slightly ictericHEPATIC FUNCTION [id number] 17:32:00 Test Item Value Reference Range Interpretation [...] (test code = 25 U/L 6-55 347) Mate Relief ID - BSSpecimen slightly ictericCBC W/PLT COUNT [...] PERCENT (BEAKER) (test code = 2801) PROTHROMBIN TIME/[id number] 15:49:00 Test Item Value Reference Range Interpretation [...] for patients wiht mechanical heart valves.CMV PCR, [id number] 19:30:00 Test Item Value Reference Range Interpretation Comments CMV VIRAL LOAD - POSITIVE Se e Scanned Report. (BEAKER) (test code = 1557) CMV VIRAL LOAD - NEGATIVE Se e Scanned Report. (BEAKER) (test code = 2558) BASIC METABOLIC [id number] 14:13:00 Test Item Value Reference Range Interpretation [...] S NOT APPLICABLE FOR DIALYSIS PATIEN TS. Mate Relief ID - GENARO CTACROLIMUS [id number] 10:37:00 Test Item Value Reference Range Interpretation Comments TACROLIMUS BLOOD (BEAKER) (test 8.3 ng/mL 10.0-20.0 L code = 657) Mate Relief ID - TODDHAMIDBASIC METABOLIC [id number] 07:48:00 Test Item Value Reference Range Interpretation [...] S NOT APPLICABLE FOR DIALYSIS PATIEN TS. Mate Relief ID - GENARO [id number] 07:35:00 Test Item Value Reference Range Interpretation Comments MAGNESIUM (BEAKER) (test code = 1.9 mg/dL 1.6-2.6 627) Mate Relief ID - GENARO CBASIC METABOLIC [id number] 14:54:00 Test Item Value Reference Range Interpretation [...] S NOT APPLICABLE FOR DIALYSIS PATIEN TS. Mate Relief ID - BSTACROLIMUS [id number] 09:59:00 Test Item Value Reference Range Interpretation Comments TACROLIMUS BLOOD (BEAKER) (test 11.6 ng/mL 10.0-20.0 code = 657) Mate Relief ID - SAMY KOCHITAMIN D, [id number] 08:26:00 Test Item Value Reference Range Interpretation Comments VITAMIN D 25-OH (BEAKER) (test code 8.5 ng/mL 6.6-49.9 = 2764) Effective 04/10/2017: Reference Range ChangeNew: 6.6-49.9 ng/mL Previous: 13.0-47.8 ng/mLRecommended Vitamin D Target Range: 30.0-40.0 ng/mLOperator ID - NTPHEPATIC FUNCTION [id number] 08:00:00 Test Item Value Reference Range Interpretation [...] (test code = 40 U/L 6-55 347) Mate Relief ID - NTPCBC (HEMOGRAM ONLY)2020-02-25 07:01:00 Test [...] 0-0 (test code = 413) BASIC METABOLIC [id number] 07:01:00 Test Item Value Reference Range Interpretation [...] S NOT APPLICABLE FOR DIALYSIS PATIEN TS. Mate Relief ID - [id number] 06:49:00 Test Item Value Reference Range Interpretation Comments MAGNESIUM (KATELYNN) (test code = 2.0 mg/dL 1.6-2.6 627) Mate Relief ID - NTPPTH, [id number] 06:44:00 Test Item Value Reference Range Interpretation Comments PARATHYROID HORMONE INTACT 425.2 pg/mL 8.5-72.5 H (ANYIAKER) (test code = 577) Mate Relief ID - NTPU/S, ABDOMINAL, WITH [id number] 23:24:00Referring: Dr. Yary Eastman/ [place] for exam:->HCC [...] cholecystitis. Small abdominal ascites. Signed: David Yee [facility] Verified Date/Time: 02/24/2020 23:24:17 CHLORIDE, RANDOM [id number] 18:44:00 Test Item Value Reference Range Interpretation Comments CHLORIDE URINE (BEAKER) (test code 130 meq/L = 682) Reference Range: No NormalsOperator ID - BSCREATININE, RANDOM [id number] 18:44:00 Test Item Value Reference Range Interpretation Comments CREATININE URINE (BEAKER) (test 27.5 mg/dL code = 375) Reference Range: No NormalsOperator ID - BSPOTASSIUM, RANDOM [id number] 18:44:00 Test Item Value Reference Range Interpretation Comments POTASSIUM URINE (BEAKER) (test 26.2 meq/L code = 195) Reference Range: No NormalsOperator ID - BSSODIUM, RANDOM [id number] 18:44:00 Test Item Value Reference Range Interpretation Comments SODIUM URINE (BEAKER) (test code = 102 meq/L 243) Reference Range: No NormalsOperator ID - BSUREA NITROGEN, RANDOM [id number] 18:44:00 Test Item Value Reference Range Interpretation Comments UREA NITROGEN URINE (BEAKER) (test 122 mg/dL code = 538) Reference Range: No NormalsOperator ID - BSBLOOD GAS, [id number] 18:33:00 Test Item Value Reference Range Interpretation [...] (BEAKER) (test code = 1819) 21.0 % BASIC METABOLIC [id number] 13:33:00 Test Item Value Reference Range Interpretation [...] S NOT APPLICABLE FOR DIALYSIS PATIEN TS. Mate Relief ID - GENARO CTACROLIMUS [id number] 11:30:00 Test Item Value Reference Range Interpretation Comments TACROLIMUS BLOOD (BEAKER) (test 13.2 ng/mL 10.0-20.0 code = 657) Mate Relief ID - SAMY [facility] TULSAEBASIC METABOLIC [id number] 07:00:00 Test Item Value Reference Range Interpretation [...] S NOT APPLICABLE FOR DIALYSIS PATIEN TS. Mate Relief ID - EDASIPROTHROMBIN TIME/[id number] 06:41:00 Test Item Value Reference Range Interpretation Comments PROTIME (BEAKER) (test code = 19.0 seconds 11.9-14.2 H 759) INR (BEAKER) (test code = 370) 1.64 <=5.90 Effective 11/26/2018: PT Reference Range ChangeNew: 11.9-14.2 Previous: 11.7- 14.7RECOMMENDED COUMADIN/WARFARIN INR THERAPY RANGESSTANDARD DOSE: 2.0-3.0 Includes: PROPHYLAXIS for venous thrombosis, systemic embolization; TREATMENT for venous thrombosis and/or pulmonary embolus.HIGH RISK: Target INR is2.5-3.5 for patients wiht mechanical heart valves.U/S, RENAL, [id number] 01:22:00Referring: Dr. Yary Eastman/ [place] for exam:->NOHEMI on [id number] REPORT TECHNIQUE: Grayscale ultrasound of the kidneys [...] MDReport Verified Date/Time: 02/24/2020 01:22:47 CREATININE, RANDOM [id number] 21:28:00 Test Item Value Reference Range Interpretation Comments CREATININE URINE (BEAKER) (test 82.9 mg/dL code = 375) Reference Range: No NormalsOperator ID - BSPROTEIN, RANDOM [id number] 21:28:00 Test Item Value Reference Range Interpretation Comments PROTEIN, URINE (BEAKER) (test code = 7 mg/dL 0-14 1569) Mate Relief ID - BSSODIUM, RANDOM [id number] 21:28:00 Test Item Value Reference Range Interpretation Comments SODIUM URINE (BEAKER) (test code = 67 meq/L 243) Reference Range: No NormalsOperator ID - BSURINALYSIS W/ [id number] 21:12:00 Test Item Value Reference Range Interpretation [...] = 1521) SOURCE(BEAKER) (test code = 2795) Mate Relief ID - [auto]Mate Relief ID - [id number] 19:00:00 Test Item Value Reference Range Interpretation Comments FERRITIN (BEAKER) (test code = 71.41 ng/mL 5.00-275.00 361) Mate Relief ID - BSVITAMIN B12 AND [id number] 19:00:00 Test Item Value Reference Range Interpretation Comments VITAMIN B12 (BEAKER) (test code = 633 pg/mL 213-816 774) FOLATE (BEAKER) (test code = 362) 16.00 ng/mL >=7.00 Mate Relief ID - BSB-TYPE NATRIURETIC FACTOR (BNP)2020-02-23 18:31:00 Test Item Value Reference Range Interpretation Comments B-TYPE NATRIURETIC PEPTIDE 1388 pg/mL 0-100 H (BEAKER) (test code = 700) Mate Relief ID - BSIRON, TIBC, % SAT. (WITHOUT FERRITIN)2020-02-23 18:24:00 Test Item Value Reference Range Interpretation Comments IRON (BEAKER) (test code = 547) 111.0 ug/dL 40.0-160.0 TOTAL IRON BINDING CAPACITY 214 ug/dL 250-450 L (BEAKER) (test code = 769) IRON % SATURATION (2) (BEAKER) 52 % 20-55 (test code = 2590) Mate Relief ID - BSBASIC METABOLIC [id number] 18:24:00 Test Item Value Reference Range Interpretation [...] S NOT APPLICABLE FOR DIALYSIS PATIEN TS. Mate Relief ID - BSSARS-COV2/RT-PCR ([facility])2020-02-23 15:02:00 Test Item Value Reference Range Interpretation Comments SARS-COV2/RT-PCR (test code Negative Not Detected, Negative, = 2591647) See external report for linked test SARS-COV-2 PERFORMING LAB [facility] (test code = 5245305) Negative results do not preclude SARS-CoV-2 infection [...] of the Act.Fact Sheet for Healthcare Pro viders:https://www.[employer]/Documents/Xpert%20Xpress%20SARS%20CoV-2/Fact%20Sh eets/302-3802%44AZSL-XHL-4%20HEALTHCARE%20PROVIDERS%20FACT%20SHEET.pdfFact Sheet for Healthcare Patients:https://www.[employer].com/Documents/Xpert%20Xpress%20SARS%20CoV-2/Fact%20Sheets/302-3801%20SARS-COV -2%20PATIENT%20FACT%20SHEET.pdfPerforming Laboratory:[facility], [place] [address]YWSUZCWJQA [id number] 12:46:00 Test Item Value Reference Range Interpretation Comments TACROLIMUS BLOOD (BEAKER) (test 18.3 ng/mL 10.0-20.0 code = 657) Mate Relief ID - RMRAD, CHEST, 2 [id number] 11:47:00Referring: Dr. Yary Eastman/ [place] for Exam:->s/p lung transplantFINAL REPORT INDICATION: s/p lung transplant COMPARISON: December 10, 2019 TECHNIQUE: Frontal and lateral views of the chest. FINDINGS: Lungs and pleura: Clear lungs. Small bilateraleffusions.Heart and mediastinum: Normal heart size. Unremarkable mediastinal contours.Osseous structures: No acute abnormality.Additional findings: Status post lung transplant. IMPRESSION: No acute intrathoracic abnormality. Signed: Brenna Fernandez MDReport Verified Date/Time: 02/23/2020 11:47:27 Reading Location: [facility] Radiology Reading Room HEMOGLOBIN A1C 2020-02-23 11:44:00 Test Item Value Reference Range Interpretation Comments HEMOGLOBIN A1C (BEAKER) (test code = < % 4.3-6.1 L 368) COMPREHENSIVE METABOLIC [id number] 11:14:00 Test Item Value Reference Range Interpretation [...] S NOT APPLICABLE FOR DIALYSIS PATIEN TS. Mate Relief ID - [id number] 11:08:00 Test Item Value Reference Range Interpretation Comments PHOSPHORUS (BEAKER) (test code = 5.4 mg/dL 2.3-4.7 H 604) Mate Relief ID - [id number] 11:08:00 Test Item Value Reference Range Interpretation Comments MAGNESIUM (BEAKER) (test code = 2.3 mg/dL 1.6-2.6 627) Mate Relief ID - NTPCBC W/PLT COUNT & AUTO [id number] 10:57:00 Test Item Value Reference Range Interpretation [...] PERCENT (BEAKER) (test code = 2801) BLOOD [id number] 22:00:00 Test Item Value Reference Range Interpretation Comments CULTURE (BEAKER) (test No growth in 5 days code = 1095) BLOOD [id number] 22:00:00 Test Item Value Reference Range Interpretation Comments CULTURE (BEAKER) (test No growth in 5 days code = 1095) LACTIC ACID, [id number] 00:13:00 Test Item Value Reference Range Interpretation Comments LACTATE BLOOD VENOUS (2) (BEAKER) 1.38 mmol/L 0.50-2.20 (test code = 2872) Mate Relief ID - PIAYA LSARS-COV2/RT-PCR ([facility])2019-12-10 21:39:00 Test Item Value Reference Range Interpretation Comments SARS-COV2/RT-PCR (test Not Detected Not Detected, Negative code = 7503223) SARS-COV-2 PERFORMING LAB [facility] (test code = 1062211) Negative results do not preclude SARS-CoV-2 infection [...] of the Act.Fact Sheet for Healthcare Pro viders:https://www.[employer]/Documents/Xpert%20Xpress%20SARS%20CoV-2/Fact%20Sh eets/302-5632%20PNFQ-SCF-3%20HEALTHCARE%20PROVIDERS%20FACT%20SHEET.pdfFact Sheet for Healthcare Patients:https://www.[employer]/Documents/Xpert%20Xpress%20SARS%20CoV-2/Fact%20Sheets/302-3801%20SARS-COV -2%20PATIENT%20FACT%20SHEET.pdfPerforming Laboratory:[facility], [place] [address]KWBAGZYW [id number] 20:47:00 Test Item Value Reference Range Interpretation [...] failure, acidosis, acute neurological disease, and persistent tachyarrhythmia.Mate Relief ID - BSB-TYPE NATRIURETIC FACTOR (BNP)2019-12-10 20:45:00 Test Item Value Reference Range Interpretation Comments B-TYPE NATRIURETIC PEPTIDE 1761 pg/mL 0-100 H (BEAKER) (test code = 700) Mate Relief ID - [id number] 20:44:00 Test Item Value Reference Range Interpretation Comments PARTIAL THROMBOPLASTIN TIME 36.0 seconds 22.5-36.0 (BEAKER) (test code = 760) PROTHROMBIN TIME/[id number] 20:43:00 Test Item Value Reference Range Interpretation [...] for patients wiht mechanical heart valves.HEPATIC FUNCTION [id number] 20:41:00 Test Item Value Reference Range Interpretation [...] (test code = 36 U/L 6-55 347) Mate Relief ID - BSBASIC METABOLIC [id number] 20:41:00 Test Item Value Reference Range Interpretation [...] S NOT APPLICABLE FOR DIALYSIS PATIEN TS. Mate Relief ID - BSLACTIC ACID, [id number] 20:35:00 Test Item Value Reference Range Interpretation Comments LACTATE BLOOD VENOUS (2) (BEAKER) 2.02 mmol/L 0.50-2.20 (test code = 2872) Mate Relief ID - BSCBC W/PLT COUNT & AUTO [id number] 20:32:00 Test Item Value Reference Range Interpretation [...] = 2801) RAD, CHEST, 1 VIEW, NON [id number] 20:23:00Referring: Dr. Yary Fernando for exam:->SHORTNESS OF [...] MDReport Verified Date/Time: 12/10/2019 20:23:47 CMV PCR, [id number] 14:32:00 Test Item Value Reference Range Interpretation Comments CMV VIRAL LOAD - Negative or below <375- >375,000 NEGATIVE (KATELYNN) the linear range of copies/mL (test code [...] and its performance characteristics determined by the [facility] Path ology Department, Section of [...] ng/mL 10.0-20.0 code = 657) Performed by [facility] LaboratoryALPHA FETOPROTEIN (AFP), TUMOR [id number] 18:05:00 Test Item Value Reference Range Interpretation Comments ALPHA-FETOPROTEIN (BEAKER) (test 2.8 ng/mL <10.0 code = 1094) Mate Relief ID - BSHEPATIC FUNCTION [id number] 15:21:00 Test Item Value Reference Range Interpretation [...] (test code = 42 U/L 6-55 347) Mate Relief ID - BSBASIC METABOLIC [id number] 15:21:00 Test Item Value Reference Range Interpretation [...] S NOT APPLICABLE FOR DIALYSIS PATIEN TS. Mate Relief ID - BSPROTHROMBIN TIME/[id number] 15:03:00 Test Item Value Reference Range Interpretation [...] mechanical heart valves.CBC W/PLT COUNT & AUTO [id number] 14:52:00 Test Item Value Reference Range Interpretation [...] PERCENT (BEAKER) (test code = 2801) TISSUE [id number] 10:25:00Surgical Pathology Report Case: [id number] Authorizing Provider: Aaron Green MD Collected: 08/31/2019 1120 Ordering Location: [facility] Radiology Angio Received: 08/31/2019 1257 Pathologist: Mandie Tyler MD Specimen: Biopsy, Liver LIVER, TRANSJUGULAR NEEDLE BIOPSIES- FIBROSIS STAGE 4 OF 4, CONSISTENT WITH CIRRHOSIS- see comment Signing Path ologist Direct Phone Line: [phone] signed by Mandie Tyler MD on 09/04/2019 at 10:25 AMThe liver biopsy shows foci of sinusoidal dilatation and congestion with dilated venous radicals. These features could be secondary to portal hypertension or may suggest a chronic venous outflow obstruction. [address], [address] [id number] with history of bilateral lung transplants in 2012, and now with ascites and portal hypertension. A. Liver biopsyThe case is received in one part labeled with the patient's information as [id number] which corresponds to the accompanying requisition slip. A. Received in formalin labeled with the patient's information and "liver biopsy" are four fragments of salvador-red soft tissue needle cores measuring 1 x [...] evaluated Immunohistochemistry technical testing was performed at [facility], Pathology Laboratory where it was [...] to perform high complexity clinical laboratory testing.SINA [id number] 18:36:00Referring: Dr. Yary Fernando for Exam:->refractory ascitesFINAL REPORT History: Portal hypertension, recurrent ascites. PROCEDURE: Following informed written consent, general endotracheal anesthesia was administered and the patient's right cervical region was prepped and draped in the usual sterile manner. Maximum sterile barrier techniques were utilized. Access was gained to the right internal jugular vein using ultrasound guidance and a micropuncture needle. A 10 Swiss sheath was placed at the access site. A 5 Swiss multipurpose catheter and Smith wire were then [...] superior mesenteric vein. A 45 cm 10 Swiss sheath was advanced over the wire into [...] Persistent hepatopedal flow is seen in the [place] portal veins. No varices are identified. Post [...] reported as (Ka,r): 358 mGy Signed: Raul Liao MDReport VerifiedDate/Time: 09/01/2019 18:36:48 Reading Location: [place] [address] Angio Body Reading Room BILIRUBIN, [id number] 07:58:00 Test Item Value Reference Range Interpretation Comments BILIRUBIN DIRECT (BEAKER) (test 0.6 mg/dL 0.1-0.5 H code = 706) Mate Relief ID - SAMY MCOMPREHENSIVE METABOLIC [id number] 07:58:00 Test Item Value Reference Range Interpretation [...] S NOT APPLICABLE FOR DIALYSIS PATIEN TS. Mate Relief ID - SAMY MPROTHROMBIN TIME/[id number] 07:53:00 Test Item Value Reference Range Interpretation [...] INR is2.5-3.5 for patients wiht mechanical heart valves.[id number] 07:53:00 Test Item Value Reference Range Interpretation Comments PARTIAL THROMBOPLASTIN TIME 36.5 seconds 22.5-36.0 H (BEAKER) (test code = 760) CBC W/PLT COUNT & AUTO [id number] 07:45:00 Test Item Value Reference Range Interpretation [...] PERCENT (BEAKER) (test code = 2801) TACROLIMUS [id number] 11:25:00 Test Item Value Reference Range Interpretation Comments TACROLIMUS BLOOD (BEAKER) (test 5.7 ng/mL 10.0-20.0 L code = 657) Mate Relief ID - MARCELLE FBASIC METABOLIC [id number] 07:04:00 Test Item Value Reference Range Interpretation [...] S NOT APPLICABLE FOR DIALYSIS PATIEN TS. Mate Relief ID - [id number] 06:37:00 Test Item Value Reference Range Interpretation Comments PARTIAL THROMBOPLASTIN TIME 33.2 seconds 22.5-36.0 (BEAKER) (test code = 760) PROTHROMBIN TIME/[id number] 06:36:00 Test Item Value Reference Range Interpretation [...] mechanical heart valves.CBC W/PLT COUNT & AUTO [id number] 06:26:00 Test Item Value Reference Range Interpretation [...] = 2801) U/S, HEPATIC PORTAL VESSEL WITH [id number] 22:44:00Referring: Dr. Yary Fernando for exam:->Assess for [...] 5.The kidneys are small. Signed: Yuni Mcmahan MDReport Verified Date/Time: 08/25/2019 22:44:25 Reading Location: [address] Consult Reading Room CBC W/PLT COUNT & AUTO [id number] 10:38:00 Test Item Value Reference Range Interpretation [...] CONCENTRATION Decreased (CELLAVISION)(BEAKER) (test code = 3438) Mate Relief ID - Ade Lucero comments: Slide comments:TACROLIMUS [id number] 09:27:00 Test Item Value Reference Range Interpretation Comments TACROLIMUS BLOOD (BEAKER) (test 7.6 ng/mL 10.0-20.0 L code = 657) Mate Relief ID - MARCELLE FBASIC METABOLIC [id number] 08:01:00 Test Item Value Reference Range Interpretation [...] S NOT APPLICABLE FOR DIALYSIS PATIEN TS. Mate Relief ID - SAMY MPROTHROMBIN TIME/[id number] 07:12:00 Test Item Value Reference Range Interpretation [...] INR is2.5-3.5 for patients wiht mechanical heart valves.[id number] 07:12:00 Test Item Value Reference Range Interpretation Comments PARTIAL THROMBOPLASTIN TIME 33.9 seconds 22.5-36.0 (BEAKER) (test code = 760) CBC W/PLT COUNT & AUTO [id number] 11:28:00 Test Item Value Reference Range Interpretation [...] CONCENTRATION Decreased (CELLAVISION)(BEAKER) (test code = 3438) Mate Relief ID - Elisabet OverholtUser comments: Slide comments:HEPATIC [...] (test code = 35 U/L 6-55 347) Mate Relief ID - MARCELLE FBASIC METABOLIC [id number] 07:38:00 Test Item Value Reference Range Interpretation [...] S NOT APPLICABLE FOR DIALYSIS PATIEN TS. Mate Relief ID - MARCELLE FGAMMA GLUTAMYL TRANSFERASE (GGT)2019-08-24 07:38:00 Test Item Value Reference Range Interpretation Comments GAMMA GLUTAMYL TRANSFERASE (BEAKER) 151 U/L 9-64 H (test code = 364) Mate Relief ID - MARCELLE FU/S, ABDOMINAL, [id number] 15:29:00Referring: Dr. Yary Eastman Labs to be [...] Harpereport Verified Date/Time: 08/23/2019 15:29:24 Reading Location: [facility] C013X Ortho Consult Reading Room U/S, TESTICULAR, WITH [id number] 15:29:00 Referring: Dr. Yary Fernando for exam:->ASCITESReason [...] MDReport Verified Date/Time: 08/23/2019 15:29:24 Reading Location: [facility] C013X Ortho Consult Reading Room [id number] 11:14:00 Test Item Value Reference Range Interpretation Comments LIPASE (BEAKER) (test code = 749) 37 U/L 8-78 Mate Relief ID - MARCELLE [id number] 11:14:00 Test Item Value Reference Range Interpretation Comments AMYLASE (BEAKER) (test code = 349) 80 U/L 25-125 Mate Relief ID - MARCELLE FBASIC METABOLIC [id number] 11:14:00 Test Item Value Reference Range Interpretation [...] S NOT APPLICABLE FOR DIALYSIS PATIEN TS. Mate Relief ELIZABETH IBANEZ FHEPATIC FUNCTION [id number] 11:14:00 Test Item Value Reference Range Interpretation [...] (test code = 34 U/L 6-55 347) Mate Relief ID [place] IBANEZ [id number] 11:09:00 Test Item Value Reference Range Interpretation Comments PARTIAL THROMBOPLASTIN TIME 28.8 seconds 22.5-36.0 (BEAKER) (test code = 760) PROTHROMBIN TIME/[id number] 11:08:00 Test Item Value Reference Range Interpretation [...] mechanical heart valves.CBC W/PLT COUNT & AUTO [id number] 10:53:00 Test Item Value Reference Range Interpretation [...] = 2801) BODY FLUID CELL COUNT WITH [id number] 14:49:00 Test Item Value Reference Range Interpretation [...] EDTA Tube (test code = 2873) TACROLIMUS [id number] 14:35:00 Test Item Value Reference Range Interpretation Comments TACROLIMUS BLOOD (BEAKER) (test 6.7 ng/mL 10.0-20.0 L code = 657) Mate Relief ID - SAMY DAWN/Cassandra, [id number] 13:52:00Referring: Dr. Yary Sears ascitic fluid for cell count and differential If Cr > 1.5, do not remove more than 3.5L of ascitic fluid. If > 3L removed, please administer 200 mL of albumin 25%(50 grams) IV x 1Labs to be ordered:->Other (please add comment)Reason for Exam:->ascitesFINAL REPORT Ultrasound guided paracentesis Clinical History: Ascites. Sedation: None. Process Controller: Aure Huerta PA-C Supervising Physician: Deanna Barraza MD [employer] Operator: None. Estimated Blood Loss: < 1 mL. [...] anesthesia was achieved with lidocaine, a 5 Swiss one-step catheter was advanced into the peritoneal cavity under ultrasound guidance. After completion of drainage, the catheter was removed. Th ere was no evidence of complication. Impression:Successful ultrasound guided paracentesis. Signed: Deanna Barraza [facility] Verified Date/Time: 08/19/2019 13:52:23 Reading Location: [facility] P006J Ultrasound Reading Room BASIC METABOLIC [id number] 13:08:00 Test Item Value Reference Range Interpretation [...] S NOT APPLICABLE FOR DIALYSIS PATIEN TS. Mate Relief ID - ROSIANGCBC W/PLT COUNT & AUTO [id number] 12:54:00 Test Item Value Reference Range Interpretation [...] 0-1 PERCENT (BEAKER) (test code = 2801) [id number] 11:24:00 Test Item Value Reference Range Interpretation Comments POC-CREATININE 1.9 mg/dL 0.6-1.3 H : TESTED AT [facility] (BEAKER) (test [address] [facility] code = 1859) [place], [address]: Mate Relief/Techni demetrice ID = [id number] for SHOULDERS, ELLE IFER POC-EGFR (BEAKER) 36 mL/min/1.73M2 (test code = 1860) BODY FLUID CELL COUNT WITH [id number] 19:33:00 Test Item Value Reference Range Interpretation [...] EDTA Tube (test code = 2873) U/S, [id number] 17:37:00Referring: Dr. Yary Sears ascitic fluid for [...] skin and deep soft tissues. A 5 Swiss one-step catheter was inserted and removed from the peritoneal space and approximately 3.2 liters of clear yellow fluid was aspirated from the abdomen. Specimens were collected for the lab. There were no immediate complications. Impression: Successful ultrasound guided paracentesis with aspiration of 3.2 liters of fluid. Signed: Javed Paez Verified Date/Time: 08/12/2019 17:37:37 Reading Location: [address] Body Reading Room -[id number] 16:08:00 Test Item Value Reference Range Interpretation Comments POC-CREATININE 2.2 mg/dL 0.6-1.3 H TESTED AT [facility] [address] (BEAKER) ([place] [address] code = 1859) [address] POC-EGFR (BEAKER) 30 mL/min/1.73M2 (test code = 1860) BODY FLUID CELL COUNT WITH [id number] 15:08:00 Test Item Value Reference Range Interpretation [...] FLUID (BEAKER) (test 47 % code = 0016) LYMPHS FLUID (BEAKER) (test code 23 % = 488) MONO/MACROPHAGE FLUID (BEAKER) 30 % (test code = 489) EOSINOPHILS FLUID (BEAKER) (test 0 % code = 491) BASO FLUID (BEAKER) (test code = 0 % 492) CONTAINER BODY FLUID (BEAKER) EDTA Tube (test code = 2873) U/S, [id number] 13:11:00Referring: Dr. Yary Sears ascitic fluid for cell count and differential If Cr > 1.5, do not remove more than 3.5L of ascitic fluid. If > 3L removed, please administer 200 mL of albumin 25%(50 grams) IV x 1Labs to be ordered:->Other (please add comment)Reason for Exam:->ascitesFINAL REPORT Ultrasound guided paracentesis. Clinical History: Ascites. Sedation: None. Process Controller: Lynn Chávez PA-C [employer] Operator: None. Estimated Blood Loss: < 1 cc. [...] was achieved with 2% lidocaine, a 5 Swiss one-step catheter was advanced into the peritoneal cavity under ultrasound guidance. After completion of drainage, the catheter was removed. There was no evidence of complication. Impression:Successful ultrasound guided paracentesis. Signed: Deanna Barraza MDReport Verified Date/Time: 08/05/2019 13 :11:25 Reading Location: [address] Ultrasound Reading Room POCT-CREATININE 2019-08-05 09:57:00 Test Item Value Reference Range Interpretation Comments POC-CREATININE 1.6 mg/dL 0.6-1.3 H TESTED AT [facility] [address] (BEAKER) ([place] [address] code = 1859) [address] POC-EGFR (BEAKER) 44 mL/min/1.73M2 (test code = 1860) BODY FLUID CELL COUNT WITH [id number] 22:25:00 Test Item Value Reference Range Interpretation [...] Vial (test code = 2873) HEPATIC FUNCTION [id number] 17:04:00 Test Item Value Reference Range Interpretation [...] (test code = 23 U/L 6-55 347) Mate Relief ID - SERGIO LBASIC METABOLIC [id number] 17:04:00 Test Item Value Reference Range Interpretation [...] S NOT APPLICABLE FOR DIALYSIS PATIEN TS. Mate Relief ID - PIAYA [id number] 17:00:00 Test Item Value Reference Range Interpretation [...] mechanical heart valves.CBC W/PLT COUNT & AUTO [id number] 16:45:00 Test Item Value Reference Range Interpretation [...] % 0-1 PERCENT (BEAKER) (test code = 2806) BLOOD [id number] 14:00:00 Test Item Value Reference Range Interpretation Comments CULTURE (BEAKER) (test No growth in 5 days code = 1095) BLOOD [id number] 14:00:00 Test Item Value Reference Range Interpretation Comments CULTURE (BEAKER) (test No growth in 5 days code = 1095) BODY FLUID CULTURE + GRAM [id number] 09:19:00 Test Item Value Reference Range Interpretation Comments CULTURE (BEAKER) (test No growth code = 1095) GRAM STAIN RESULT 2+ White blood cells (BEAKER) (test code = seen 1123) GRAM STAIN RESULT No organisms seen (BEAKER) (test code = 20636) TACROLIMUS [id number] 11:05:00 Test Item Value Reference Range Interpretation Comments TACROLIMUS BLOOD (BEAKER) (test 9.4 ng/mL 10.0-20.0 L code = 657) Mate Relief ID - MARCELLE FBASIC METABOLIC [id number] 07:34:00 Test Item Value Reference Range Interpretation [...] S NOT APPLICABLE FOR DIALYSIS PATIEN TS. Mate Relief ID - CASEY [id number] 07:30:00 Test Item Value Reference Range Interpretation Comments PHOSPHORUS (BEAKER) (test code = 2.8 mg/dL 2.3-4.7 604) Mate Relief ID - CASEY [id number] 07:30:00 Test Item Value Reference Range Interpretation Comments MAGNESIUM (BEAKER) (test code = 1.7 mg/dL 1.6-2.6 627) Mate Relief ID - CASEY MHEPATIC FUNCTION [id number] 07:30:00 Test Item Value Reference Range Interpretation [...] (test code = 18 U/L 6-55 347) Mate Relief ID - CASEY MCBC W/PLT COUNT & AUTO [id number] 07:15:00 Test Item Value Reference Range Interpretation [...] PERCENT (BEAKER) (test code = 2801) TACROLIMUS [id number] 14:21:00 Test Item Value Reference Range Interpretation Comments TACROLIMUS BLOOD (BEAKER) (test 5.3 ng/mL 10.0-20.0 L code = 657) Mate Relief ID - AAHAMIDBASIC METABOLIC [id number] 07:26:00 Test Item Value Reference Range Interpretation [...] S NOT APPLICABLE FOR DIALYSIS PATIEN TS. Mate Relief ID - MARCELLE [id number] 07:22:00 Test Item Value Reference Range Interpretation Comments PHOSPHORUS (BEAKER) (test code = 3.4 mg/dL 2.3-4.7 604) Mate Relief ID - MARCELLE [id number] 07:22:00 Test Item Value Reference Range Interpretation Comments MAGNESIUM (BEAKER) (test code = 1.9 mg/dL 1.6-2.6 627) Mate Relief ID - MARCELLE FHEPATIC FUNCTION [id number] 07:22:00 Test Item Value Reference Range Interpretation [...] (test code = 19 U/L 6-55 347) Mate Relief ID - MARCELLE FCBC W/PLT COUNT & AUTO [id number] 06:59:00 Test Item Value Reference Range Interpretation [...] PERCENT (BEAKER) (test code = 2801) U/S, [id number] 17:39:00Referring: Dr. Yary Olivas to be ordered:->Body Fluid Culture (w/Gram Stain, C\\T\\S)cell countReason for exam:- >ABDOMINAL PAINReason for exam:->EMESISFINAL REPORT Ultrasound guided paracentesis Clinical History: Ascites. Sedation: None. Process Controller: Aure Huerta PA-C Supervising Physician: Raul Liao MD [employer] Operator: None. Estimated Blood Loss: < 1 mL. [...] anesthesia was achieved with lidocaine, a 5 Swiss one-step catheter was advanced into the peritoneal cavity under ultrasound guidance. After completion of drainage, the catheter was removed. T here was no evidence of complication. Impression:Successful ultrasound guided paracentesis. Signed: Raul Liaoeport Verified Date/Time: 07/28/2019 17:39:14 Reading Location: [facility] P006J Ultrasound Reading Room CMV PCR, [id number] 17:32:00 Test Item Value Reference Range Interpretation [...] and its performance characteristics determined by the [facility] Path ology Department, Section of Molecular Pathology. It has not been cleared or approved by the U.S. Food and Drug Administration (FDA), since FDA approval is not required for clinical use of the test. Validation was done as required by The Clinical Laboratory Improvement Amendments of 1988.CBC W/PLT COUNT & AUTO [id number] 11:59:00 Test Item Value Reference Range Interpretation [...] CONCENTRATION Decreased (CELLAVISION)(BEAKER) (test code = 3438) Mate Relief ID - Phillip Ferrell comments: Slide comments:TACROLIMUS LEVEL 2019-07-28 10:17:00 Test Item Value Reference Range Interpretation Comments TACROLIMUS BLOOD (BEAKER) (test 3.9 ng/mL 10.0-20.0 L code = 657) Mate Relief ID - JONES, CHEST, 1 VIEW, NON [id number] 09:31:00Referring: Dr. Yary Fernando for exam:->s/p lung [...] Crenshaw Verified Date/Time: 07/28/2019 09:31:05 Reading Location: [facility] Reading Room [id number] 05:42:00 Test Item Value Reference Range Interpretation Comments PHOSPHORUS (BEAKER) (test code = 3.3 mg/dL 2.3-4.7 604) Mate Relief ID - CASEY [id number] 05:42:00 Test Item Value Reference Range Interpretation Comments MAGNESIUM (BEAKER) (test code = 2.0 mg/dL 1.6-2.6 627) Mate Relief ID - CASEY MBASIC METABOLIC [id number] 05:42:00 Test Item Value Reference Range Interpretation [...] S NOT APPLICABLE FOR DIALYSIS PATIEN TS. Mate Relief ID - CASEY MHEPATIC FUNCTION [id number] 05:42:00 Test Item Value Reference Range Interpretation [...] (test code = 21 U/L 6-55 347) Mate Relief ID [place] PEÑA MBODY FLUID CELL COUNT WITH [id number] 19:31:00 Test Item Value Reference Range Interpretation [...] pg/mL 0-100 H (test code = 700) Mate Relief ID [place] IBANEZ [id number] 13:07:00 Test Item Value Reference Range Interpretation Comments PHOSPHORUS (BEAKER) (test code = 2.5 mg/dL 2.3-4.7 604) Mate Relief ID [place] IBANEZ [id number] 13:07:00 Test Item Value Reference Range Interpretation Comments MAGNESIUM (BEAKER) (test code = 1.5 mg/dL 1.6-2.6 L 627) Mate Relief ID [place] IBANEZ FBASIC METABOLIC [id number] 13:07:00 Test Item Value Reference Range Interpretation [...] S NOT APPLICABLE FOR DIALYSIS PATIEN TS. Mate Relief ID [place] IBANEZ FHEPATIC FUNCTION [id number] 13:07:00 Test Item Value Reference Range Interpretation [...] (test code = 26 U/L 6-55 347) Mate Relief ID [place] IBANEZ [id number] 13:07:00 Test Item Value Reference Range Interpretation Comments AMYLASE (BEAKER) (test code = 349) 55 U/L 25-125 Mate Relief ID [place] IBANEZ [id number] 13:07:00 Test Item Value Reference Range Interpretation Comments LIPASE (BEAKER) (test code = 749) 14 U/L 8-78 Mate Relief ID [place] IBANEZ FLACTIC ACID, [id number] 13:01:00 Test Item Value Reference Range Interpretation Comments LACTATE BLOOD VENOUS 1.0 mmol/L 0.5-2.2 Specime n slightly (2) (BEAKER) (test hemolyzed code = 2872) Mate Relief ELIZABETH IBANEZ FCBC W/PLT COUNT & AUTO [id number] 12:40:00 Test Item Value Reference Range Interpretation [...] (BEAKER) (test code = 2801) BLOOD GAS, [id number] 12:40:00 Test Item Value Reference Range Interpretation Comments PH VENOUS (BEAKER) (test code = 7.37 7.32-7.42 701) PCO2 VENOUS (BEAKER) (test code = 43 mmHg 41-51 755) PO2 VENOUS (BEAKER) (test code = 21 mmHg 25-40 L 702) O2 SATURATION VENOUS (BEAKER) 33.0 % 40.0-70.0 L (test code = 703) HCO3 VENOUS (BEAKER) (test code = 24 mmol/L 21-29 705) BASE EXCESS VENOUS (BEAKER) (test -1.0 mmol/L -2.0-3.0 code = 704) PATIENT TEMPERATURE (BEAKER) 37.0 C (test code = 1818) FIO2 (BEAKER) (test code = 1819) 21.0 % [id number] 12:29:00 Test Item Value Reference Range Interpretation [...] is2.5-3.5 for patients wiht mechanical heart valves.U/S, [id number] 11:38:00 Referring: Dr. Yary Sears ascitic fluid for cell count and differential If Cr > 1.5, do not remove more than 3.5L of ascitic fluid. If > 3L removed, please administer 200 mL of albumin 25%(50 grams) IV x 1Labs to be ordered:->Other (please add comment)Reason for Exam:->ascitesFINAL REPORT Ultrasound guided paracentesis. Clinical History: Ascites. Sedation: None. Process Controller: Lynn Chávez PA-C [employer] Operator: None. Estimated Blood Loss: < 1 cc. [...] was achieved with 2% lidocaine, a 5 Swiss one-step catheter was advanced into the peritoneal cavity under ultrasound guidance. After completion of drainage, the catheter was removed. There was no evidence of complication. Impression:Successful ultrasound guided paracentesis. Signed: Ant Kimbrough MDReport Verified Date/Time: 07/13/201911:38:58 Reading Location: [address] Ultrasound Reading Room BLOOD [id number] 13:44:00 Test Item Value Reference Range Interpretation Comments CULTURE (BEAKER) (test No growth in 5 days code = 1095) BLOOD [id number] 13:44:00 Test Item Value Reference Range Interpretation Comments CULTURE (BEAKER) (test No growth in 5 days code = 1095) BODY FLUID CULTURE + GRAM [id number] 10:08:00 Test Item Value Reference Range Interpretation Comments CULTURE (BEAKER) (test code No growth = 1095) GRAM STAIN RESULT (BEAKER) <1+ WBCs (test code = 1123) GRAM STAIN RESULT (BEAKER) No organisms seen (test code = 07523) [id number] 15:38:00 Test Item Value Reference Range Interpretation Comments POC-CREATININE 1.5 mg/dL 0.6-1.3 H TESTED AT [facility] [address] (BEAKER) (test [address] [place] code = 1859) [address] POC-EGFR (BEAKER) 48 mL/min/1.73M2 (test code = 1860) TACROLIMUS [id number] 10:37:00 Test Item Value Reference Range Interpretation Comments TACROLIMUS BLOOD (BEAKER) (test 4.6 ng/mL 10.0-20.0 L code = 657) [id number] 07:42:00 Test Item Value Reference Range Interpretation Comments MAGNESIUM (BEAKER) (test code = 1.6 mg/dL 1.6-2.6 627) BASIC METABOLIC [id number] 07:42:00 Test Item Value Reference Range Interpretation [...] PATIEN TS. CBC W/PLT COUNT & AUTO [id number] 07:19:00 Test Item Value Reference Range Interpretation [...] = 2801) BODY FLUID CELL COUNT WITH [id number] 14:42:00 Test Item Value Reference Range Interpretation [...] EDTA Tube (test code = 2873) U/S, [id number] 13:48:00Referring: Dr. Yary Olivas to be ordered:->Body Fluid Culture (w/Gram Stain, C\\T\\S)fluid cell countLabs to be ordered:->Glucose+LDH+ProteinLabs to be ordered:->Other (please add comment)Reason for exam:->abdominal distention and ascites.FINAL REPORT Ultrasound guided paracentesis. Clinical History: Ascites. Sedation: None. Process Controller: Lynn Chávez PA-C [employer] Operator: None. Estimated Blood Loss: < 1 cc. [...] was achieved with 2% lidocaine, a 5 Swiss one-step catheter was advanced into the peritoneal cavity under ultrasound guidance. After completion of drainage, the catheter was removed. There was no evidence of complication. Impression:Successful ultrasound guided paracentesis. Signed: Deanna Barraza MDReport Verified Date/Time: 07/07/2019 13:48:10 Reading Location: [facility] P006J Ultrasound Reading Room TACROLIMUS [id number] 10:03:00 Test Item Value Reference Range Interpretation Comments TACROLIMUS BLOOD (BEAKER) (test 3.5 ng/mL 10.0-20.0 L code = 657) [id number] 07:00:00 Test Item Value Reference Range Interpretation Comments PHOSPHORUS (BEAKER) (test code = 2.9 mg/dL 2.3-4.7 604) [id number] 07:00:00 Test Item Value Reference Range Interpretation Comments MAGNESIUM (BEAKER) (test code = 1.4 mg/dL 1.6-2.6 L 627) HEPATIC FUNCTION [id number] 07:00:00 Test Item Value Reference Range Interpretation [...] 6-55 347) CBC W/PLT COUNT & AUTO [id number] 07:00:00 Test Item Value Reference Range Interpretation [...] (BEAKER) (test code = 2801) BASIC METABOLIC [id number] 07:00:00 Test Item Value Reference Range Interpretation [...] APPLICABLE FOR DIALYSIS PATIEN TS. RESPIRATORY PANEL [id number] 17:34:00 Test Item Value Reference Range Interpretation [...] detected Not detected, (BEAKER) (test code = 0840) Equivocal ADENOVIRUS (BEAKER) (test Not detected Not [...] decisions. This sample was tested at the [facility] using the KineticArray Respiratory Panel. It is FDA cleared and has been verified and approved by the [facility] for clinical use on nasopharyngeal swab specimens.The performance of the FilmArrayRP has not been established in individuals who received influenza vaccine. Recent administration ofa nasal influenza vaccine may cause false positive results for Influenza A and/orInfluenza B.TACROLIMUS [id number] 09:50:00 Test Item Value Reference Range Interpretation Comments TACROLIMUS BLOOD (BEAKER) (test 3.6 ng/mL 10.0-20.0 L code = 657) BASIC METABOLIC [id number] 07:47:00 Test Item Value Reference Range Interpretation [...] S NOT APPLICABLE FOR DIALYSIS PATIEN TS. [id number] 07:39:00 Test Item Value Reference Range Interpretation Comments PHOSPHORUS (BEAKER) (test code = 2.6 mg/dL 2.3-4.7 604) [id number] 07:39:00 Test Item Value Reference Range Interpretation Comments MAGNESIUM (BEAKER) (test code = 1.4 mg/dL 1.6-2.6 L 627) HEPATIC FUNCTION [id number] 07:39:00 Test Item Value Reference Range Interpretation [...] 6-55 347) CBC W/PLT COUNT & AUTO [id number] 06:46:00 Test Item Value Reference Range Interpretation [...] PERCENT (BEAKER) (test code = 2801) PROTHROMBIN [id number] 02:37:00 Test Item Value Reference Range Interpretation [...] INR is2.5-3.5 for patients wiht mechanical heart valves.PT/[id number] 02:37:00 Test Item Value Reference Range Interpretation [...] for patients wiht mechanical heart valves.BASIC METABOLIC [id number] 02:23:00 Test Item Value Reference Range Interpretation [...] S NOT APPLICABLE FOR DIALYSIS PATIEN TS. [id number] 02:22:00 Test Item Value Reference Range Interpretation Comments PHOSPHORUS (BEAKER) (test code = 2.1 mg/dL 2.3-4.7 L 604) [id number] 02:22:00 Test Item Value Reference Range Interpretation Comments MAGNESIUM (BEAKER) (test code = 1.4 mg/dL 1.6-2.6 L 627) HEPATIC FUNCTION [id number] 02:22:00 Test Item Value Reference Range Interpretation [...] 29 U/L 6-55 347) RAD, CHEST, 2 [id number] 02:14:00Referring: Dr. Yayr Fernando for exam:->pneumoniaFINAL REPORT CLINICAL HISTORY: Pneumonia [...] 07/06/2019 02:14:45 CBC W/PLT COUNT & AUTO [id number] 01:50:00 Test Item Value Reference Range Interpretation [...] PERCENT (BEAKER) (test code = 2801) TACROLIMUS [id number] 13:42:00 Test Item Value Reference Range Interpretation Comments TACROLIMUS BLOOD (BEAKER) (test 5.3 ng/mL 10.0-20.0 L code = 657) [id number] 12:03:00 Test Item Value Reference Range Interpretation Comments PHOSPHORUS (BEAKER) (test code = 2.9 mg/dL 2.3-4.7 604) [id number] 12:03:00 Test Item Value Reference Range Interpretation Comments MAGNESIUM (BEAKER) (test code = 1.7 mg/dL 1.6-2.6 627) COMPREHENSIVE METABOLIC [id number] 12:03:00 Test Item Value Reference Range Interpretation [...] = 635) CBC W/PLT COUNT & AUTO [id number] 11:41:00 Test Item Value Reference Range Interpretation [...] PERCENT (BEAKER) (test code = 2801) U/S, [id number] 12:23:00Referring: Dr. Yary Fernando for exam:->ABDOMINAL PAINReason [...] MDReport Verified Date/Time: 06/27/2019 12:23:23 Reading Location: [address] Transitional Reading Room BASI METABOLIC [id number] 10:54:00 Test Item Value Reference Range Interpretation [...] NOT APPLICABLE FOR DIALYSIS PATIEN TS. PROTHROMBIN [id number] 10:41:00 Test Item Value Reference Range Interpretation [...] mechanical heart valves.CBC W/PLT COUNT & AUTO [id number] 10:35:00 Test Item Value Reference Range Interpretation [...] PERCENT (BEAKER) (test code = 2801) TACROLIMUS [id number] 14:52:00 Test Item Value Reference Range Interpretation Comments TACROLIMUS BLOOD (BEAKER) (test 7.9 ng/mL 10.0-20.0 L code = 657) [id number] 14:27:00 Test Item Value Reference Range Interpretation Comments MAGNESIUM (BEAKER) (test code = 1.6 mg/dL 1.6-2.6 627) BASIC METABOLIC [id number] 14:27:00 Test Item Value Reference Range Interpretation [...] PATIEN TS. CBC W/PLT COUNT & AUTO [id number] 14:18:00 Test Item Value Reference Range Interpretation [...] (BEAKER) (test code = 2801) CMV PCR, [id number] 15:45:00 Test Item Value Reference Range Interpretation [...] and its performance characteristics determined by the [facility] Path ology Department, Section of [...] L code = 657) RAD, CHEST, 2 [id number] 11:35:00Referring: Dr. Yary Fernando for Exam:->s/p lung transplantFINAL REPORT INDICATION: s/p lung transplant COMPARISON: None TECHNIQUE: Frontal and lateral views of the chest. FINDINGS: Lungs and pleura: Clear lungs. No effusion.Heart and med iastinum: Normal heart size. Unremarkable mediastinal contours.Osseous structures: No acute abnormality.Additional findings: Post procedure changes compatible with prior transplant. IMPRESSION: No acute intrathoracic abnormality. Signed: Brenna Fernandez Verified Date/Time: 05/19/2019 11:35:20 Reading Location: [facility] Radiology Reading Room COMPREHENSIVE METABOLIC [id number] 10:12:00 Test Item Value Reference Range Interpretation [...] S NOT APPLICABLE FOR DIALYSIS PATIEN TS. [id number] 10:04:00 Test Item Value Reference Range Interpretation Comments PHOSPHORUS (BEAKER) (test code = 3.7 mg/dL 2.3-4.7 604) [id number] 10:04:00 Test Item Value Reference Range Interpretation Comments MAGNESIUM (BEAKER) (test code = 1.5 mg/dL 1.6-2.6 L 627) LACTATE DEHYDROGENASE (LDH)2019-05-19 10:04:00 Test Item Value Reference Range Interpretation Comments LACTATE DEHYDROGENASE (BEAKER) (test 186 U/L 125-220 code = 635) CBC W/PLT COUNT & AUTO [id number] 09:24:00 Test Item Value Reference Range Interpretation [...] (BEAKER) (test code = 2801) CMV PCR, [id number] 14:26:00 Test Item Value Reference Range Interpretation [...] and its performance characteristics determined by the [facility] Path ology Department, Section of Molecular Pathology. It has not been cleared or approved by the U.S. Food and Drug Administration (FDA), since FDA approval is not required for clinical use of the test. Validation was done as required by The Clinical Laboratory Improvement Amendments of 1988.MR, ABDOMEN, WITH 2019-05-13 15:52:00Referring: Dr. Yary Noriega MRCPWith MRCPLocation: For [place] Only->with MRCPFINAL REPORT TECHNIQUE: MRI of the [...] reassessed on follow- up MRI. 4.Cholelithiasis. Signed: Lyric Mancilla MDReport Verified Date/Time: 05/13/2019 15:52:20 Reading Location: [address] TACROLIMUS [id number] 13:36:00 Test Item Value Reference Range Interpretation Comments TACROLIMUS BLOOD (BEAKER) (test 9.8 ng/mL 10.0-20.0 L code = 657) [id number] 13:00:00 Test Item Value Reference Range Interpretation Comments PHOSPHORUS (BEAKER) (test code = 3.2 mg/dL 2.3-4.7 604) [id number] 13:00:00 Test Item Value Reference Range Interpretation Comments MAGNESIUM (BEAKER) (test code = 1.6 mg/dL 1.6-2.6 627) COMPREHENSIVE METABOLIC [id number] 13:00:00 Test Item Value Reference Range Interpretation [...] PATIEN TS. CBC W/PLT COUNT & AUTO [id number] 12:49:00 Test Item Value Reference Range Interpretation [...] 3438) Received comment: User comments: Slide comments:TACROLIMUS [id number] 09:45:00 Test Item Value Reference Range Interpretation Comments TACROLIMUS BLOOD (BEAKER) (test 13.2 ng/mL 10.0-20.0 code = 657) ALPHA FETOPROTEIN (AFP), TUMOR [id number] 18:10:00 Test Item Value Reference Range Interpretation Comments ALPHA-FETOPROTEIN (BEAKER) (test 2.8 ng/mL <10.0 code = 1094) [id number] 17:45:00 Test Item Value Reference Range Interpretation Comments MAGNESIUM (BEAKER) (test code = 1.6 mg/dL 1.6-2.6 627) BASIC METABOLIC [id number] 17:45:00 Test Item Value Reference Range Interpretation [...] APPLICABLE FOR DIALYSIS PATIEN TS. HEPATIC FUNCTION [id number] 17:45:00 Test Item Value Reference Range Interpretation [...] = 32 U/L 6-55 347) BASIC METABOLIC [id number] 17:43:00 Test Item Value Reference Range Interpretation [...] APPLICABLE FOR DIALYSIS PATIEN TS. URINALYSIS W/ [id number] 17:35:00 Test Item Value Reference Range Interpretation [...] 514) SOURCE(BEAKER) (test code = 2795) PROTHROMBIN [id number] 17:26:00 Test Item Value Reference Range Interpretation [...] mechanical heart valves.CBC W/PLT COUNT & AUTO [id number] 17:19:00 Test Item Value Reference Range Interpretation [...] = 2801) CBC W/PLT COUNT & AUTO [id number] 17:18:00 Test Item Value Reference Range Interpretation [...] = 2801) BODY FLUID CULTURE + GRAM [id number] 14:13:00 Test Item Value Reference Range Interpretation Comments CULTURE (BEAKER) (test code No growth = 1095) GRAM STAIN RESULT (BEAKER) 1+ WBCs (test code = 1123) GRAM STAIN RESULT (BEAKER) No organisms seen (test code = 87846) LACTATE DEHYDROGENASE (LDH), BODY [id number] 19:19:00 Test Item Value Reference Range Interpretation [...] guided paracentesis Clinical History: Ascites. Sedation: None. Process Controller: Aure Huerta PA-C Supervising Physician: Torey Burkett MD Bushing And Broach Operator: None. Estimated Blood Loss: < 1 mL. [...] anesthesia was achieved with lidocaine, a 5 Swiss one-step catheter was advanced into the peritoneal cavity under ultrasound guidance. After completion of drainage, the catheter was removed. There was no evidence of complication. This procedure was performed by PRIYANKA Ramírez under direct supervision of Torey Burkett M.D. Impression:Successful ultrasound guided paracentesis. Signed:Torey Burkett MDReport Verified Date/Time: 05/01/2019 18:38:36 Reading Location: [address] Ultrasound Reading Room U/S, [id number] 18:05:00Referring: Dr. Yary Olivas to be ordered:->Body Fluid Culture (w/Gram Stain, C\\T\\S)Labs to be ordered:->Glucose+LDH+ProteinReason for exam:->ABD SWELLINGShould this be performed at the bedside?->YesFINAL REPORT Ultrasound guided paracentesis, 05/01/2019. Clinical History: Ascites. Sedation: None. Process Controller: Lola. Bushing And Broach Operator: None. Estimated Blood Loss: < 1 cc. [...] was achieved with 1% lidocaine, a 5 Swiss one-step catheter was advanced into the peritoneal cavity under ultrasound guidance. After completion of drainage, the catheter was removed. There was no evidence of complication.Patient Disposition: The patient was discharged from the ultrasound department after the paracentesis, in good condition. Impression:Successful ultrasound guided paracentesis. Signed: Anton Ruth MDReport Verified Date/Time: 05/01/2019 18:05:44 Reading Location: [address] Body Reading Room BODY FLUID CELL COUNT WITH [id number] 17:23:00 Test Item Value Reference Range Interpretation [...] (BEAKER) (test code = 2873) ALBUMIN, BODY [id number] 17:17:00 Test Item Value Reference Range Interpretation Comments ALBUMIN FLUID (BEAKER) (test code = 0.5 gm/dL 501) Reference Range: No Normals Assay performance has not been validated for this type of specimen.PROTEIN, BODY [id number] 17:16:00 Test Item Value Reference Range Interpretation [...] 10.0-20.0 L code = 657) COMPREHENSIVE METABOLIC [id number] 15:01:00 Test Item Value Reference Range Interpretation [...] S NOT APPLICABLE FOR DIALYSIS PATIEN TS. [id number] 14:57:00 Test Item Value Reference Range Interpretation Comments MAGNESIUM (BEAKER) (test code = 1.8 mg/dL 1.6-2.6 627) [id number] 14:57:00 Test Item Value Reference Range Interpretation [...] mechanical heart valves.RAD, CHEST, 1 VIEW, NON [id number] 14:53:00Referring: Dr. Yary Fernando for exam:->chest painShould [...] Verified Date/Time: 05/01/2019 14:53:51 Reading Location: [facility] Reading Room CBC W/PLT COUNT & AUTO [...] = 2801) BODY FLUID CULTURE + GRAM [id number] 11:52:00 Test Item Value Reference Range Interpretation Comments CULTURE (BEAKER) (test No growth code = 1095) GRAM STAIN RESULT <1+ White blood cells (BEAKER) (test code = seen 1123) GRAM STAIN RESULT No organisms seen (BEAKER) (test code = 66628) BODY FLUID CELL COUNT WITH [id number] 18:29:00 Test Item Value Reference Range Interpretation [...] = 2873) CBC W/PLT COUNT & AUTO [id number] 14:08:00 Test Item Value Reference Range Interpretation [...] = 3438) Received comment: User comments: Slide comments:[id number] 12:58:00 Test Item Value Reference Range Interpretation Comments LIPASE (BEAKER) (test code = 749) 153 U/L 8-78 H BASIC METABOLIC [id number] 12:58:00 Test Item Value Reference Range Interpretation [...] APPLICABLE FOR DIALYSIS PATIEN TS. HEPATIC FUNCTION [id number] 12:58:00 Test Item Value Reference Range Interpretation [...] (test code = 37 U/L 6-55 347) [id number] 12:49:00 Test Item Value Reference Range Interpretation [...] is2.5-3.5 for patients wiht mechanical heart valves.BLOOD [id number] 12:00:00 Test Item Value Reference Range Interpretation Comments CULTURE (BEAKER) (test No growth in 5 days code = 1095) BLOOD [id number] 12:00:00 Test Item Value Reference Range Interpretation Comments CULTURE (BEAKER) (test No growth in 5 days code = 1095) STOOL CULTURE + SHIGA [id number] 15:15:00 Test Item Value Reference Range Interpretation Comments CULTURE (BEAKER) No Salmonella, Shigella (test code = 1095) or Campylobacter isolated TACROLIMUS [id number] 09:27:00 Test Item Value Reference Range Interpretation Comments TACROLIMUS BLOOD (BEAKER) (test 9.5 ng/mL 10.0-20.0 L code = 657) CBC W/PLT COUNT & AUTO [id number] 08:36:00 Test Item Value Reference Range Interpretation [...] = 3438) Received comment: User comments: Slide comments:[id number] 07:02:00 Test Item Value Reference Range Interpretation Comments PHOSPHORUS (BEAKER) (test code = 2.7 mg/dL 2.3-4.7 604) [id number] 07:02:00 Test Item Value Reference Range Interpretation Comments MAGNESIUM (BEAKER) (test code = 1.7 mg/dL 1.6-2.6 627) BASIC METABOLIC [id number] 07:02:00 Test Item Value Reference Range Interpretation [...] APPLICABLE FOR DIALYSIS PATIEN TS. HEPATIC FUNCTION [id number] 07:02:00 Test Item Value Reference Range Interpretation [...] code = 29 U/L 6-55 347) CALCIUM, [id number] 06:41:00 Test Item Value Reference Range Interpretation Comments CALCIUM IONIZED (BEAKER) (test 1.10 mmol/L 1.12-1.27 L code = 698) PH, BLOOD (BEAKER) (test code = 7.41 1810) SHIGA TOXIN [id number] 13:55:00 Test Item Value Reference Range Interpretation Comments SHIGA TOXIN 1 (BEAKER) (test Not detected Not detected code = 2177) SHIGA TOXIN 2 (BEAKER) (test Not detected Not detected code = 2179) CBC W/PLT COUNT & AUTO [id number] 13:00:00 Test Item Value Reference Range Interpretation [...] few = 481) Wbc differential done manuallyTACROLIMUS [id number] 10:40:00 Test Item Value Reference Range Interpretation Comments TACROLIMUS BLOOD (BEAKER) (test 3.0 ng/mL 10.0-20.0 L code = 657) STOOL PATH [id number] 10:16:00 Test Item Value Reference Range Interpretation Comments PATHOGEN EXAM CHARGED (BEAKER) (test Done code = 2381) CALCIUM, [id number] 07:43:00 Test Item Value Reference Range Interpretation Comments CALCIUM IONIZED (BEAKER) (test 1.14 mmol/L 1.12-1.27 code = 698) PH, BLOOD (BEAKER) (test code = 7.42 1810) [id number] 06:35:00 Test Item Value Reference Range Interpretation Comments PHOSPHORUS (BEAKER) (test code = 2.4 mg/dL 2.3-4.7 604) [id number] 06:35:00 Test Item Value Reference Range Interpretation Comments MAGNESIUM (BEAKER) (test code = 1.6 mg/dL 1.6-2.6 627) BASIC METABOLIC [id number] 06:35:00 Test Item Value Reference Range Interpretation [...] APPLICABLE FOR DIALYSIS PATIEN TS. HEPATIC FUNCTION [id number] 06:35:00 Test Item Value Reference Range Interpretation [...] = 30 U/L 6-55 347) RESPIRATORY PANEL [id number] 14:16:00 Test Item Value Reference Range Interpretation [...] decisions. This sample was tested at the [facility] using the KineticArray Respiratory Panel. It is FDA cleared and has been verified and approved by the [facility] for clinical use on nasopharyngeal swab specimens.The performance of the FilmArrayRP has not been established in individuals who received influenza vaccine. Recent administration ofa nasal influenza vaccine may cause false positive results for Influenza A and/orInfluenza B.TACROLIMUS [id number] 11:08:00 Test Item Value Reference Range Interpretation Comments TACROLIMUS BLOOD (BEAKER) (test 2.8 ng/mL 10.0-20.0 L code = 657) C. DIFFICILE GDH [id number] 10:53:00 Test Item Value Reference Range Interpretation Comments CDT TOXIN (test code Negative Negative = 5702223500) CDT GDH ANTIGEN (test Negative Negative No ind ication of code = 6075230336) Clostridi um difficile infection and n o colonization. Discontinue ent henrique isolation and t herapy. Testing performed by [employer] Rapid Cassette Assay. For GDH, published sensitivity of the assay is 98.7% compared to cytotoxicity testing. For Toxin AB, published sensitivity is 87.8% and specificity 99.4% compared to cytotoxicity testing.Verification of kit performance was done by the [facility] prior to clinical use.BASIC METABOLIC [id number] 10:21:00 Test Item Value Reference Range Interpretation [...] GFR I S NOT APPLICABLE FOR DIALYSIS PATIIRIS TS. PERIPHERAL BLOOD SMEAR - PATHOLOGIST [id number] 09:58:00 Test Item Value Reference Range Interpretation Comments PERIPHERAL SMR REVIEW Rare atypical (BEAKER) (test code = lymphocytes, favore 2640) reactive. No circulating blasts. Clinical follow up recommended. [id number] Macario Walker, (BEAKER) (test code = M.D.(electronic 5242) signature) CBC W/PLT COUNT & AUTO [id number] 09:36:00 Test Item Value Reference Range Interpretation [...] (CELLAVISION)(BEAKER) 0.11 K/uL 0.00-0.80 (test code = 0170) ATYPICAL LYMPHOCYTES - ABS 0.01 K/uL 0.00-0.00 H (CELLAVISION)(BEAKER) (test code = 0618) TOTAL COUNTED (BEAKER) (test code = 100 [...] 3438) Received comment: User comments: Slide comments:POCT-GLUCOSE [id number] 09:31:00 Test Item Value Reference Range Interpretation Comments POC-GLUCOSE METER 103 mg/dL 70-110 : TESTED A T [facility] 6720 (BEAKER) (test code = PARESH Garcia [facility], 1538) [address]: Mate Relief/Techni demetrice ID = [id number] for BG SAUCEDO IMMUNOGLOBULIN G (IGG)2019-04-23 07:17:00 Test Item Value Reference Range Interpretation Comments IMMUNOGLOBULIN G (IGG) (BEAKER) 291 mg/dL 540-1,822 L (test code = 427) CALCIUM, [id number] 07:14:00 Test Item Value Reference Range Interpretation Comments CALCIUM IONIZED (BEAKER) (test 1.10 mmol/L 1.12-1.27 L code = 698) PH, BLOOD (BEAKER) (test code = 7.43 1810) [id number] 07:11:00 Test Item Value Reference Range Interpretation Comments CORTISOL, TOTAL (BEAKER) (test code 3.7 ug/dL 3.7-19.4 = 3515) BLOOD GAS, [id number] 07:09:00 Test Item Value Reference Range Interpretation [...] (BEAKER) (test code = 1819) 21.0 % [id number] 06:54:00 Test Item Value Reference Range Interpretation Comments PHOSPHORUS (BEAKER) (test code = 3.1 mg/dL 2.3-4.7 604) [id number] 06:54:00 Test Item Value Reference Range Interpretation Comments MAGNESIUM (BEAKER) (test code = 1.7 mg/dL 1.6-2.6 627) BASIC METABOLIC [id number] 06:54:00 Test Item Value Reference Range Interpretation [...] APPLICABLE FOR DIALYSIS PATIEN TS. HEPATIC FUNCTION [id number] 06:54:00 Test Item Value Reference Range Interpretation [...] = 28 U/L 6-55 347) VANCOMYCIN LEVEL, [id number] 06:48:00 Test Item Value Reference Range Interpretation Comments VANCOMYCIN RANDOM (BEAKER) (test 6.0 ug/mL code = 523) Reference Range: No NormalsLACTIC ACID, [id number] 06:42:00 Test Item Value Reference Range Interpretation Comments LACTATE BLOOD ARTERIAL (2) 2.1 mmol/L 0.5-2.2 (BEAKER) (test code = 2874) FECAL [id number] 01:59:00 Test Item Value Reference Range Interpretation Comments FECAL LEUKOCYTES No fecal leukocytes No fecal leukocytes (BEAKER) (test code = seen seen 992) BLOOD GAS, [id number] 23:40:00 Test Item Value Reference Range Interpretation [...] code = 1819) 21.0 % LEGIONELLA ANTIGEN, [id number] 19:38:00 Test Item Value Reference Range Interpretation Comments L. PNEUMOPHILA Negative - see Negative fo r L. SEROGP 1 UR AG comment pneumophila (BEAKER) (test code serogrou p 1 antigen, = 1156) suggesting no r ecent or current infe ction with this serog roup. Legionellosis c annot be ruled out si nce other serogroup s and species may cau se disease. STREP PNEUMONIAE [id number] 19:38:00 Test Item Value Reference Range Interpretation [...] the detection limit of the test.BASIC METABOLIC [id number] 19:14:00 Test Item Value Reference Range Interpretation [...] S NOT APPLICABLE FOR DIALYSIS PATIEN TS. [id number] 19:13:00 Test Item Value Reference Range Interpretation Comments HAPTOGLOBIN (BEAKER) (test code = 63 mg/dL 14-258 366) LACTIC ACID, [id number] 19:11:00 Test Item Value Reference Range Interpretation Comments LACTATE BLOOD VENOUS (2) (BEAKER) 2.0 mmol/L 0.5-2.2 (test code = 2600) LACTATE DEHYDROGENASE (LDH)2019-04-22 18:26:00 Test Item Value Reference Range Interpretation Comments LACTATE DEHYDROGENASE (BEAKER) (test 199 U/L 125-220 code = 635) U/S, ABDOMINAL, [id number] 16:07:00Referring: Dr. Yary Fernando for exam:->abnormal LFTs [...] mm. No gallbladder distention is seen. There jose luis small amount of pericholecystic fluid. No sonographic [...] December 27, 2017.4. Left renal cyst. Signed: Lyric Mancilla Verified Date/Time: 04/22/2019 16:07:26 Reading Location:[address] Radiology Reading Room CMV PCR, [id number] 15:18:00 Test Item Value Reference Range Interpretation [...] and its performance characteristics determined by the [facility] Path ology Department, Section of Molecular Pathology. It has not been cleared or approved by the U.S. Food and Drug Administration (FDA), since FDA approval is not required for clinical use of the test. Validation was done as required by The Clinical Laboratory Improvement Amendments of 1988.EBV VIRAL [id number] 15:07:00 Test Item Value Reference Range Interpretation [...] (2) real-time PCR amplification and detection with XECL-5-hrbaddxe primers and probes. A well-conserved region of the EBNA-1 gene is targeted, along with an internal control sequence used to confirm PCR amplification. Asymptomatic carriers and viral genetic variation, among other factors, can affect the accuracy of nucleic acid testing; therefore, results should be interpreted in light of clinical data.This test was developedand its performance characteristics determined by the [facility] Pathology Department, Section of Molecular Pathology. It [...] comments: Slide comments:CBC W/PLT COUNT & AUTO [id number] 14:00:00 Test Item Value Reference Range Interpretation [...] WBC 0-0 (test code = 413) TROPONIN [id number] 13:53:00 Test Item Value Reference Range Interpretation [...] acute neurological disease, and persistent tachyarrhythmia.BASIC METABOLIC [id number] 13:45:00 Test Item Value Reference Range Interpretation [...] APPLICABLE FOR DIALYSIS PATIEN TS. CHLORIDE, RANDOM [id number] 12:41:00 Test Item Value Reference Range Interpretation Comments CHLORIDE URINE (BEAKER) (test code = 45 meq/L 682) Reference Range: No NormalsCREATININE, RANDOM [id number] 12:41:00 Test Item Value Reference Range Interpretation Comments CREATININE URINE (BEAKER) (test 131.6 mg/dL code = 375) Reference Range: No NormalsPOTASSIUM, RANDOM [id number] 12:41:00 Test Item Value Reference Range Interpretation Comments POTASSIUM URINE (BEAKER) (test 68.5 meq/L code = 195) Reference Range: No NormalsSODIUM, RANDOM [id number] 12:41:00 Test Item Value Reference Range Interpretation Comments SODIUM URINE (BEAKER) (test code = 27 meq/L 243) Reference Range: No NormalsUREA NITROGEN, RANDOM [id number] 12:41:00 Test Item Value Reference Range Interpretation Comments UREA NITROGEN URINE (BEAKER) (test 732 mg/dL code = 538) Reference Range: No NormalsURINALYSIS W/ REFLEX URINE [id number] 11:59:00 Test Item Value Reference Range Interpretation [...] 1584) SOURCE(BEAKER) (test code = 2795) OSMOLALITY, [id number] 11:59:00 Test Item Value Reference Range Interpretation Comments OSMOLALITY URINE (BEAKER) (test 536 mOsm/kg 40-1,400 code = 614) SPECIFIC GRAVITY, [id number] 11:52:00 Test Item Value Reference Range Interpretation Comments SPECIFIC GRAVITY UA (BEAKER) (test code 1.024 1.001-1.035 = 468) TACROLIMUS [id number] 11:08:00 Test Item Value Reference Range Interpretation Comments TACROLIMUS BLOOD (BEAKER) (test 3.9 ng/mL 10.0-20.0 L code = 657) [id number] 09:00:00 Test Item Value Reference Range Interpretation Comments PROCALCITONIN (BEAKER) (test code 64.50 ng/mL <0.05 HH = 3036) SEPSIS RISK (ng/mL)Low: 0.05-0.50Intermediate: 0.51-2.00High: >=2.01RAPID INFLUENZA A&B [id number] 07:45:00 Test Item Value Reference Range Interpretation Comments RAPID INFLUENZA A AG (BEAKER) Negative Negative, Inconclusive (test code = 1622) RAPID INFLUENZA B AG (BEAKER) Negative Negative, Inconclusive (test code = 1623) B-TYPE NATRIURETIC FACTOR (BNP)2019-04-22 07:27:00 Test Item Value Reference Range Interpretation Comments B-TYPE NATRIURETIC PEPTIDE 1132 pg/mL 0-100 H (BEAKER) (test code = 700) TROPONIN [id number] 07:27:00 Test Item Value Reference Range Interpretation [...] acute neurological disease, and persistent tachyarrhythmia.BASIC METABOLIC [id number] 07:21:00 Test Item Value Reference Range Interpretation [...] S NOT APPLICABLE FOR DIALYSIS PATIEN TS. [id number] 07:20:00 Test Item Value Reference Range Interpretation Comments PHOSPHORUS (BEAKER) (test code = 4.7 mg/dL 2.3-4.7 604) [id number] 07:20:00 Test Item Value Reference Range Interpretation Comments MAGNESIUM (BEAKER) (test code = 1.5 mg/dL 1.6-2.6 L 627) HEPATIC FUNCTION [id number] 07:20:00 Test Item Value Reference Range Interpretation [...] (test code = 33 U/L 6-55 347) [id number] 07:13:00 Test Item Value Reference Range Interpretation [...] is2.5-3.5 for patients wiht mechanical heart valves.PROTHROMBIN TIME/[id number] 07:11:00 Test Item Value Reference Range Interpretation [...] is2.5-3.5 for patients wiht mechanical heart valves.CALCIUM, [id number] 06:59:00 Test Item Value Reference Range Interpretation Comments CALCIUM IONIZED (BEAKER) (test 1.10 mmol/L 1.12-1.27 L code = 698) PH, BLOOD (BEAKER) (test code = 7.32 1810) BLOOD GAS, [id number] 06:58:00 Test Item Value Reference Range Interpretation [...] 1819) 21.0 % RAD, ABDOMEN/KUB, 1 VIEW [id number] 06:48:00Referring: Dr. Yary Fernando for exam:->abdominal painFINAL [...] 04/22/2019 06:48:47 RAD, CHEST, 1 VIEW, NON [id number] 06:46:00Referring: Dr. Yary Fernando for exam:->chest discomfortShould [facility]?->YesFINAL REPORT History: Chest discomfort. Comparison: 01/20/2019 Findings: [...] MDReport Verified Date/Time: 04/22/2019 06:46:48 BUN AND [id number] 12:39:00 Test Item Value Reference Range Interpretation [...] NOT APPLICABLE FOR DIALYSIS PATIEN TS. TISSUE [id number] 12:55:00Surgical Pathology Report Case: [id number] Authorizing Provider: Reg Serrano, Collected: 02/20/2019 1622 Ordering Location: [facility] Endoscopy Received: 02/23/2019 0843 Services Pathologist: [...] (SEE COMMENT) Signing Pathologist Direct Phone Line: [phone] signed by Gemma Samayoa MD on 03/03/2019 at 12:55 PMDecreased to absent plasma cells are seen inthe lamina propria consistent with history of common variable immunodeficiency. No features of microscopic colitis, active inflammation or parasites are seen.INTRADEPARTMENTAL CONSULTATION: - Sarah Siegel MD has seen specimen B and D and agrees with the diagnosis.26826 x 4, 21613, 91114Fhwsjec diarrhea, polyp of cecum , H/O lung transplant in 12/2012, Common variable immunodeficiencyA. Cecum polyp. B.Random right colon biopsy, rule out microscopic colitis. C. Ascending colon polyp x3. D. Random leftcolon biopsy, rule out microscopic colitis.Received in formalin in four parts, all labeled with the patient's name and accession number.Part A. Labeled "polyp, colon-cecum" are two irregular salvador-red soft tissue fragments each measuring 0.3 cm, [...] included the use of immunohistochemistry or special stains.SRE650- no plasma cells highlighted in lamina propriaD CD138- no plasma cells highlighted in lamina propria , except in one fragmentControl Slides Examined: In-house known positive controls were evaluated along with the test tissue. These control slides run alongside of the patients sample show appropriate staining. Internal positive and negative controls when available are evaluated [facility] where it was developed [...] high complexity clinical laboratory testing.CT, CHEST, WITHOUT [id number] 16:06:00Referring: Dr. Yary Fernando for Exam:->s/p lung [...] ascites. The ascites is new.4. Cholelithiasis. Signed: Lyric Mancilla MDReport Verified Date/Time: 01/20/2019 16:06:56 Reading Location:[facility] B1 C013Y CT Body Reading Room CMV [...] and its performance characteristics determined by the [facility] Path ology Department, Section of [...] 10.0-20.0 code = 657) RAD, CHEST, 2 [id number] 12:28:00Referring: Dr. Yary Eastman Reason for Exam:->s/p lung transplantFINAL REPORT PA and lateral chest, 01/20/2019 COMPARISON: 11/18/2018 The heart,lungs and mediastinum remain within normal limits. Sternal sutures and mediastinal clips are noted. There is persistent minimal blunting of both costophrenic angles consistent with mild thickening or tiny effusions. No significant osseous abnormalities are identified. Signed: Noe Rowan MDReport Verified Date/Time: 01/20/2019 12:28:25 Reading Location: [facility] Diagnostic Imaging Reading Room - [facility] 1.310.12 [id number] 12:02:00 Test Item Value Reference Range Interpretation Comments PROSTATE SPECIFIC ANTIGEN (BEAKER) 0.3 ng/mL 0.0-4.0 (test code = 844) MALES onlyVITAMIN D, [id number] 12:02:00 Test Item Value Reference Range Interpretation Comments VITAMIN D 25-OH (BEAKER) (test 23.8 ng/mL 6.6-49.9 code = 2764) Effective 04/10/2017: Reference Range ChangeNew: 6.6-49.9 ng/mL Previous: 13.0-47.8 ng/mLRecommended Vitamin D Target Range: 30.0-40.0 ng/mLMALES only HEMOGLOBIN [id number] 11:40:00 Test Item Value Reference Range Interpretation Comments HEMOGLOBIN A1C (BEAKER) (test code = 4.4 % 4.3-6.1 368) [id number] 10:45:00 Test Item Value Reference Range Interpretation Comments PHOSPHORUS (BEAKER) (test code = 3.5 mg/dL 2.3-4.7 604) [id number] 10:45:00 Test Item Value Reference Range Interpretation Comments MAGNESIUM (BEAKER) (test code = 1.5 mg/dL 1.6-2.6 L 627) COMPREHENSIVE METABOLIC [id number] 10:45:00 Test Item Value Reference Range Interpretation [...] NOT APPLICABLE FOR DIALYSIS PATIEN TS. LIPID [id number] 10:45:00 Test Item Value Reference Range Interpretation [...] = 635) CBC W/PLT COUNT & AUTO [id number] 09:48:00 Test Item Value Reference Range Interpretation [...] code = 2801) SPUTUM CULTURE + GRAM [id number] 23:12:00 Test Item Value Reference Range Interpretation Comments CULTURE (BEAKER) Oropharyngeal (test code = 1095) contamination, specimen rejected. Recollect requested. GRAM STAIN RESULT <1+ WBCs (BEAKER) (test code = 1123) GRAM STAIN RESULT 10-15 epithelial cells (BEAKER) (test code = 00006) GRAM STAIN RESULT <1+ gram negative rods (BEAKER) (test code = 90500) GRAM STAIN RESULT 3+ gram positive cocci in (BEAKER) (test code pairs and clusters = 802479) TACROLIMUS [id number] 11:06:00 Test Item Value Reference Range Interpretation Comments TACROLIMUS BLOOD (BEAKER) (test 9.7 ng/mL 10.0-20.0 L code = 657) [id number] 09:20:00 Test Item Value Reference Range Interpretation Comments MAGNESIUM (BEAKER) (test code = 1.7 mg/dL 1.6-2.6 627) COMPREHENSIVE METABOLIC [id number] 09:20:00 Test Item Value Reference Range Interpretation [...] PATIEN TS. CBC W/PLT COUNT & AUTO [id number] 09:01:00 Test Item Value Reference Range Interpretation [...] (BEAKER) (test code = 2801) CMV PCR, [id number] 15:10:00 Test Item Value Reference Range Interpretation [...] and its performance characteristics determined by the [facility] Path ology Department, Section of Molecular Pathology. It has not been cleared or approved by the U.S. Food and Drug Administration (FDA), since FDA approval is not required for clinical use of the test. Validation was done as required by The Clinical Laboratory Improvement Amendments of 1988.RESPIRATORY PANEL [facility] 2018-11-18 16:22:00 Test Item Value Reference Range [...] decisions. This sample was tested at the [facility] using the [employer] Film[employer] Respiratory Panel. It is FDA cleared and has been verified and approved by the [facility] for clinical use on nasopharyngeal swab specimens.The performance of the FilmArrayRP has not been established in individuals who received influenza vaccine. Recent administration ofa nasal influenza vaccine may cause false positive results for Influenza A and/orInfluenza B.HEMOGLOBIN [id number] 12:52:00 Test Item Value Reference Range Interpretation Comments HEMOGLOBIN A1C (BEAKER) (test code = 4.9 % 4.3-6.1 368) TACROLIMUS [id number] 12:24:00 Test Item Value Reference Range Interpretation Comments TACROLIMUS BLOOD (BEAKER) (test 2.8 ng/mL 10.0-20.0 L code = 657) [id number] 11:47:00 Test Item Value Reference Range Interpretation Comments PHOSPHORUS (BEAKER) (test code = 3.2 mg/dL 2.3-4.7 604) [id number] 11:47:00 Test Item Value Reference Range Interpretation Comments MAGNESIUM (BEAKER) (test code = 1.6 mg/dL 1.6-2.6 627) COMPREHENSIVE METABOLIC [id number] 11:47:00 Test Item Value Reference Range Interpretation [...] NOT APPLICABLE FOR DIALYSIS PATIEN TS. LIPID [id number] 11:47:00 Test Item Value Reference Range Interpretation [...] = 635) CBC W/PLT COUNT & AUTO [id number] 11:19:00 Test Item Value Reference Range Interpretation [...] (test code = 2801) RAD, CHEST, 2 [id number] 10:04:00Reason for Exam:->s/p lung transplant FINAL REPORT Chest, 2 views. Clinical History: s/p lung transplant ComparisonStudy: August 05, 2018 Findings: The heart and lungs are within normal limits. Sternotomy wires are seen. Blunting of the right costophrenic angle is seen. No significant bony or soft tissue abnormalities are seen. Impression: No significant change. Signed: Lyric Mancillaeport Verified Date/Time: 11/18/2018 10:04:14 Reading Location: [address] Radiology Reading Room [id number] 13:40:00 Test Item Value Reference Range Interpretation Comments BLOOD UREA NITROGEN (BEAKER) (test 22 mg/dL 7-21 H code = 354) [id number] 13:40:00 Test Item Value Reference Range Interpretation Comments CREATININE (BEAKER) 1.03 mg/dL 0.57-1.25 (test code = 358) EGFR (BEAKER) (test 73 mL/min/1.73 ESTIMA ABDULLAHI GFR IS code = 1092) sq m NOT ACCURATE CREATININE CLEARANCE IN PREDICTING GLOMERULAR FILTRATION RATE . ESTIMATED GFR I S NOT APPLICABLE FOR DIALYSIS PATIEN TS. GIARDIA [id number] 15:23:00 Test Item Value Reference Range Interpretation Comments GIARDIA ANTIGEN Not detected Not detected NOTE: Due to (QUEST) (test code intermitt ent shedding, = 8911901) one negative sample does not necess arily rule out the presence of a parasitic infec tion. Performing Lab *[facility], [address] [place] [id number] Sumi Davila MD, PhDOVA AND PARASITE [id number] 07:46:00 Test Item Value Reference Range Interpretation [...] (test seen seen code = 248) U/S, [id number] 15:43:00Reason for Exam:->abdl distentionReason for Exam:->s/p lung [...] manner.After local anesthesia is achieved, a 5 Swiss catheter is advanced into the peritoneal cavity. Approximately 1300 cc of serosanguineous fluid is drained, without immediate complications. Fluid is sent for analysis. Patient Disposition: The patient is discharged from the ultrasound department after the paracentesis, in good condition. Impression: Successful and uncomplicated ultrasound guided paracentesis is performed. Signed: Tonny Perryort Verified Date/Time: 08/19/2018 15:43:52 Reading Location: [facility] P006J Ultrasound Reading Room Electronically signed by: TONNY PERRY M.D. on08/19/2018 03:43 PMRESPIRATORY PANEL [id number] 13:59:00 Test Item Value Reference Range Interpretation [...] decisions. This sample was tested at the [facility] using the [employer] Respiratory Panel. It is FDA cleared and has been verified and approved by the [facility] for clinical use on nasal swab specimens. It is not FDA-cleared for use on bronchial wash/lavage samples. However, for this sample type, validation was performed and test characteristics were determined and approved, by [facility] for clinical use under the Clinical Laboratory Improvement Amendments (CLIA) of 1988 requirements. Therefore, FDA clearance isnot required. This laboratory is CLIA-certified and [employer] [employer] (CAP)-accredited to perform high complexity testing.TACROLIMUS [id number] 13:46:00 Test Item Value Reference Range Interpretation Comments TACROLIMUS BLOOD (BEAKER) (test 5.5 ng/mL 10.0-20.0 L code = 657) PROTHROMBIN [id number] 13:05:00 Test Item Value Reference Range Interpretation Comments PROTIME (BEAKER) (test code = 14.6 seconds 11.7-14.7 759) INR (BEAKER) (test code = 370) 1.1 <=5.9 RECOMMENDED COUMADIN/WARFARIN INR THERAPY RANGESSTANDARD DOSE: 2.0 - 3.0 Includes: PROPHYLAXIS forvenous thrombosis, systemic embolization; TREATMENT for venous thrombosis and/or pulmonary embolus.HIGH RISK: Target INR is 2.5-3.5 for patients with mechanical heart valves.RAPID STREP A [id number] 11:41:00 Test Item Value Reference Range Interpretation Comments STREP A ANTIGEN (BEAKER) (test code Negative Negative = 556) [id number] 11:10:00 Test Item Value Reference Range Interpretation Comments MAGNESIUM (BEAKER) (test code = 1.4 mg/dL 1.6-2.6 L 627) BASIC METABOLIC [id number] 11:10:00 Test Item Value Reference Range Interpretation [...] PATIEN TS. CBC W/PLT COUNT & AUTO [id number] 10:55:00 Test Item Value Reference Range Interpretation [...] (BEAKER) (test code = 2801) BUN AND [id number] 15:09:00 Test Item Value Reference Range Interpretation [...] DIALYSIS PATIEN TS. STOOL CULTURE + SHIGA [id number] 12:11:00 Test Item Value Reference Range Interpretation Comments CULTURE (BEAKER) No Salmonella, Shigella (test code = 1095) or Campylobacter isolated SHIGA TOXIN [id number] 16:28:00 Test Item Value Reference Range Interpretation Comments SHIGA TOXIN 1 (BEAKER) (test Not detected Not detected code = 2177) SHIGA TOXIN 2 (BEAKER) (test Not detected Not detected code = 2179) STOOL PATH [id number] 12:11:00 Test Item Value Reference Range Interpretation Comments PATHOGEN EXAM CHARGED (BEAKER) (test Done code = 2381) C. DIFFICILE GDH [id number] 16:18:00 Test Item Value Reference Range Interpretation Comments CDT TOXIN (test code Negative Negative = 5570704131) CDT GDH ANTIGEN (test Negative Negative No ind ication of code = 4106350516) Clostridi um difficile infection and n o colonization. Discontinue ent henrique isolation and t herapy. Testing performed by [employer] Rapid Cassette Assay. For GDH, published sensitivity of the assay is 98.7% compared to cytotoxicity testing. For Toxin AB, published sensitivity is 87.8% and specificity 99.4% compared to cytotoxicity testing.Verification of kit performance was done by the [facility] prior to clinical use.FECAL [id number] 14:50:00 Test Item Value Reference Range Interpretation Comments FECAL LEUKOCYTES No fecal leukocytes No fecal leukocytes (BEAKER) (test code = seen seen 992) CMV PCR, [id number] 14:34:00 Test Item Value Reference Range Interpretation [...] and its performance characteristics determined by the [facility] Path ology Department, Section of [...] 4.8 ng/mL 10.0-20.0 L code = 657) [id number] 08:47:00 Test Item Value Reference Range Interpretation Comments PHOSPHORUS (BEAKER) (test code = 2.1 mg/dL 2.3-4.7 L 604) [id number] 08:47:00 Test Item Value Reference Range Interpretation Comments MAGNESIUM (BEAKER) (test code = 1.7 mg/dL 1.6-2.6 627) COMPREHENSIVE METABOLIC [id number] 08:47:00 Test Item Value Reference Range Interpretation [...] 125-220 code = 635) RAD, CHEST, 2 [id number] 08:33:00Reason for Exam:->s/p lung transplant FINAL REPORT [...] MDReport Verified Date/Time: 08/05/2018 08:33:35 Reading Location: [facility] Radiology Reading Room CBC W/PLT COUNT & AUTO [id number] 08:23:00 Test Item Value Reference Range Interpretation [...] (test code = 2801) AFB CULTURE + [id number] 12:42:00 Test Item Value Reference Range Interpretation Comments CULTURE (BEAKER) (test No acid-fast bacilli code = 1095) isolated in 42 days AFB SMEAR (BEAKER) No acid fast bacilli (test code = 994) seen TACROLIMUS [id number] 11:26:00 Test Item Value Reference Range Interpretation Comments TACROLIMUS BLOOD (BEAKER) (test 5.6 ng/mL 10.0-20.0 L code = 657) CBC W/PLT COUNT & AUTO [id number] 08:07:00 Test Item Value Reference Range Interpretation [...] 0-1 PERCENT (BEAKER) (test code = 2801) [id number] 07:54:00 Test Item Value Reference Range Interpretation Comments MAGNESIUM (BEAKER) (test code = 1.7 mg/dL 1.6-2.6 627) BASIC METABOLIC [id number] 07:54:00 Test Item Value Reference Range Interpretation [...] FOR DIALYSIS PATIEN TS. FUNGUS CULTURE + [id number] 13:47:00 Test Item Value Reference Range Interpretation Comments CULTURE (BEAKER) A <1+ Jane (test code = 1095) amira sis FUNGUS SMEAR No fungi seen (BEAKER) (test code = 1406) TACROLIMUS [id number] 12:34:00 Test Item Value Reference Range Interpretation Comments TACROLIMUS BLOOD (BEAKER) (test 3.3 ng/mL 10.0-20.0 L code = 657) RAD, BONE DENSITY [id number] 12:09:00Reason for Exam:->fpc use of prednisoneReason for Exam:->s/p lung transplantFINAL [...] MDReport Verified Date/Time: 06/05/2018 12:09:02 Reading Location: [facility] Reading Room IMMUNOGLOBULIN A (IGA)2018-06-05 11:42:00 [...] < mg/dL 540-1,822 L code = 427) [id number] 11:15:00 Test Item Value Reference Range Interpretation Comments MAGNESIUM (BEAKER) (test code = 1.6 mg/dL 1.6-2.6 627) BASIC METABOLIC [id number] 11:15:00 Test Item Value Reference Range Interpretation [...] PATIEN TS. CBC W/PLT COUNT & AUTO [id number] 11:12:00 Test Item Value Reference Range Interpretation [...] code = 2801) SPUTUM CULTURE + GRAM [id number] 19:04:00 Test Item Value Reference Range Interpretation Comments CULTURE (BEAKER) 4+ Normal respiratory (test code = 1095) tre present GRAM STAIN RESULT 1+ WBCs (BEAKER) (test code = 1123) GRAM STAIN RESULT 0-5 epithelial cells (BEAKER) (test code = 89344) GRAM STAIN RESULT 1+ gram negative rods (BEAKER) (test code = 31517) GRAM STAIN RESULT 3+ gram positive rods (BEAKER) (test code = 801663) SPIN/CONCENTRATION [id number] 00:19:00 Test Item Value Reference Range Interpretation Comments CONCENTRATION CHARGED (BEAKER) (test Done code = 2657) CMV PCR, [id number] 14:39:00 Test Item Value Reference Range Interpretation [...] and its performance characteristics determined by the [facility] Path ology Department, Section of [...] ng/mL 10.0-20.0 code = 657) RESPIRATORY PANEL [id number] 12:51:00 Test Item Value Reference Range Interpretation Comments HUMAN METAPNEUMOVIRUS Not detected Not detected, (BEAKER) (test code = Equivocal 9505) RHINOVIRUS (BEAKER) Detected Not detected, A Assay [...] decisions. This sample was tested at the [facility] using the [employer] Respiratory Panel. It is FDA cleared and has been verified and approved by the [facility] for clinical use on nasal swab specimens. It is not FDA-cleared for use on bronchial wash/lavage samples. However, for this sample type, validation was performed and test characteristics were determined and approved, by [facility] for clinical use under the Clinical Laboratory Improvement Amendments (CLIA) of 1988 requirements. Therefore, FDA clearance isnot required. This laboratory is CLIA-certified and [employer] (CAP)-accredited to perform high complexity testing.HEMOGLOBIN [id number] 10:37:00 Test Item Value Reference Range Interpretation Comments HEMOGLOBIN A1C (BEAKER) (test code = 4.5 % 4.3-6.1 368) CREATININE, RANDOM [id number] 09:55:00 Test Item Value Reference Range Interpretation Comments CREATININE URINE (BEAKER) (test 195.0 mg/dL code = 375) Reference Range: No NormalsPROTEIN, RANDOM [id number] 09:55:00 Test Item Value Reference Range Interpretation Comments PROTEIN, URINE (BEAKER) (test code = 18 mg/dL 0-14 H 1569) MICROALBUMIN, RANDOM [id number] 09:55:00 Test Item Value Reference Range Interpretation Comments MICROALBUMIN URINE (BEAKER) (test 1.5 mg/dL code = 1794) Reference Range: No NormalsRAD, CHEST, 2 [id number] 09:22:00Reason for Exam:->s/p lung transplantFINAL REPORT INDICATION: s/p lung transplant COMPARISON: February 05, 2018 TECHNIQUE: Frontal and lateral views of the chest. FINDINGS: Lungs and pleura: Clear lungs. Small posterior fusions bilaterally.Heart and mediastinum: Normal heart size. Stable surgical changes.Osseous structures: No acute abnormality.Additional findings: None. IMPRESSION: No acute intrathoracic abnormality. Signed: JR Rizzo Robert MDReport Verified Date/Time: 05/29/2018 09:22:59 Reading Location: [facility] Radiology Reading Room [id number] 09:10:00 Test Item Value Reference Range Interpretation Comments PROSTATE SPECIFIC ANTIGEN (BEAKER) 0.4 ng/mL 0.0-4.0 (test code = 844) MALES onlyHEPATITIS PANEL, [id number] 09:10:00 Test Item Value Reference Range Interpretation Comments HEPATITIS A IGM ANTIBODY (BEAKER) Nonreactive Nonreactive (test code = 498) HEPATITIS B CORE IGM ANTIBODY Nonreactive Nonreactive (BEAKER) (test code = 645) HEPATITIS C ANTIBODY (BEAKER) Nonreactive Nonreactive (test code = 367) HEPATITIS B SURFACE ANTIGEN (2) Nonreactive Nonreactive (BEAKER) (test code = 2585) MALES onlyVITAMIN D, [id number] 09:10:00 Test Item Value Reference Range Interpretation Comments VITAMIN D 25-OH (BEAKER) (test 26.8 ng/mL 6.6-49.9 code = 2764) Effective 04/10/2017: Reference Range ChangeNew: 6.6-49.9 ng/mL Previous: 13.0-47.8 ng/mLRecommended Vitamin D Target Range: 30.0-40.0 ng/mLMALES onlyHIV- 1 ANTIGEN WITH HIV-1/2 [id number] 09:10:00 Test Item Value Reference Range Interpretation Comments HIV-1 ANTIGEN WITH HIV 1\\T\\2 Nonreactive Nonreactive ANTIBODY (2) (BEAKER) (test code = 2586) MALES [id number] 08:48:00 Test Item Value Reference Range Interpretation Comments PHOSPHORUS (BEAKER) (test code = 3.2 mg/dL 2.3-4.7 604) COMPREHENSIVE METABOLIC [id number] 08:48:00 Test Item Value Reference Range Interpretation [...] NOT APPLICABLE FOR DIALYSIS PATIEN TS. LIPID [id number] 08:48:00 Test Item Value Reference Range Interpretation [...] = 635) CBC W/PLT COUNT & AUTO [id number] 08:30:00 Test Item Value Reference Range Interpretation [...] (test code = 2801) AFB CULTURE + [id number] 17:58:00 Test Item Value Reference Range Interpretation Comments CULTURE (BEAKER) (test No acid-fast bacilli code = 1095) isolated in 42 days AFB SMEAR (BEAKER) No acid fast bacilli (test code = 994) seen BODY FLUID CULTURE + GRAM [id number] 18:20:00 Test Item Value Reference Range Interpretation Comments CULTURE (BEAKER) (test code No growth = 1095) GRAM STAIN RESULT (BEAKER) <1+ WBCs (test code = 1123) GRAM STAIN RESULT (BEAKER) No organisms seen (test code = 72383) CBC W/PLT COUNT & AUTO [id number] 11:48:00 Test Item Value Reference Range Interpretation [...] 3438) Received comment: User comments: Slide comments:TACROLIMUS [id number] 09:58:00 Test Item Value Reference Range Interpretation Comments TACROLIMUS BLOOD (BEAKER) (test 5.3 ng/mL 10.0-20.0 L code = 657) POCT-GLUCOSE [id number] 08:33:00 Test Item Value Reference Range Interpretation Comments POC-GLUCOSE METER 100 mg/dL 70-110 TESTED AT [facility] 6720 (BEAKER) (test code = PARESH WHITNEY 1538) [address] [id number] 07:13:00 Test Item Value Reference Range Interpretation Comments MAGNESIUM (BEAKER) (test code = 1.6 mg/dL 1.6-2.6 627) COMPREHENSIVE METABOLIC [id number] 07:13:00 Test Item Value Reference Range Interpretation [...] PATIEN TS. BODY FLUID CELL COUNT WITH [id number] 17:27:00 Test Item Value Reference Range Interpretation [...] Tube (test code = 2873) PROTEIN, BODY [id number] 17:03:00 Test Item Value Reference Range Interpretation Comments PROTEIN FLUID (BEAKER) (test code = 1.2 g/dL 579) Absence of reference range indicates that normals have not been defined.Assay performance has not been validated for this type of specimen.ascitesascites GLUCOSE, BODY [id number] 17:03:00 Test Item Value Reference Range Interpretation Comments GLUCOSE, BODY FLUID (BEAKER) (test 92 mg/dL code = 1528) Absence of reference range indicates that normals have not been defined.Assay performance has not been validated for this type of specimen.ascitesascites TACROLIMUS [id number] 15:07:00 Test Item Value Reference Range Interpretation Comments TACROLIMUS BLOOD (BEAKER) (test 7.7 ng/mL 10.0-20.0 L code = 657) VITAMIN B12 AND [id number] 14:40:00 Test Item Value Reference Range Interpretation Comments VITAMIN B12 (BEAKER) (test code = 714 pg/mL 213-816 774) FOLATE (BEAKER) (test code = 362) 13.4 ng/mL >=7.0 IMMUNOGLOBULIN G (IGG)2018-02-05 14:19:00 Test Item Value Reference Range Interpretation Comments IMMUNOGLOBULIN G (IGG) (BEAKER) 133 mg/dL 540-1822 L (test code = 427) POCT-GLUCOSE [id number] 13:31:00 Test Item Value Reference Range Interpretation Comments POC-GLUCOSE METER 149 mg/dL 70-110 H TESTED AT [facility] 6720 (BEAKER) (test code = PARESH [place] 1538) [address] U/S, [id number] 11:08:00Reason for exam:->ABDOMINAL PAINFINAL REPORT HISTORY : [...] skin and deep soft tissues. A 5 Swiss multi-sidehole catheter was inserted and removed from the peritoneal space and approximately 3.1 liters of clear yellow fluid was aspirated from the abdomen. Specimens were collected for the lab. There were no immediate complications. Impression: Successful ultrasound guided paracentesis with aspiration of 3.1 liters of fluid. Signed: Javed Paez MDReport Verified Date/Time: 02/05/2018 11:08:13 Reading Location: [address] Ultrasound Reading Room Electronically signedby: JAVED PAEZ MD on 02/05/2018 11:08 AMCBC W/PLT COUNT & AUTO [id number] 09:16:00 Test Item Value Reference Range Interpretation [...] PERCENT (BEAKER) (test code = 2801) TROPONIN [id number] 09:11:00 Test Item Value Reference Range Interpretation [...] pg/mL 0-100 H (test code = 700) [id number] 09:04:00 Test Item Value Reference Range Interpretation Comments MAGNESIUM (BEAKER) (test code = 1.7 mg/dL 1.6-2.6 627) BASIC METABOLIC [id number] 09:04:00 Test Item Value Reference Range Interpretation [...] APPLICABLE FOR DIALYSIS PATIEN TS. HEPATIC FUNCTION [id number] 09:04:00 Test Item Value Reference Range Interpretation [...] (test code = 38 U/L 6-55 347) [id number] 09:04:00 Test Item Value Reference Range Interpretation Comments AMYLASE (BEAKER) (test code = 349) 79 U/L 25-125 [id number] 09:04:00 Test Item Value Reference Range Interpretation Comments LIPASE (BEAKER) (test code = 749) 36 U/L 8-78 [id number] 08:54:00 Test Item Value Reference Range Interpretation [...] mechanical heart valves.RAD, CHEST, 1 VIEW, NON [id number] 07:45:00Reason for exam:->chest painFINAL REPORT Chest one view AP 02/05/2018 7:45 AM CLINICAL INDICATION: chest pain COMPARISON: 01/13/2018 IMPRESSION: There are trace bilateral pleural effusions with adjacent basilar atelectasis. Cardiomediastinal contours are within normal limits. The central pulmonary vasculatureis not engorged. Sternotomy wires remain midline. Signed: Bryce Craven Verified Date/Time: 02/05/2018 07:45:26 Reading Location: [address] Neuro Reading Room FUNGUS CULTURE + [id number] 12:31:00 Test Item Value Reference Range Interpretation Comments CULTURE (BEAKER) (test No fungus isolated in code = 1095) 28 days FUNGUS SMEAR (BEAKER) No fungi seen (test code = 1406) VIRUS [id number] 12:15:00 Test Item Value Reference Range Interpretation Comments CULTURE (BEAKER) (test code No virus isolated = 1095) CMV PCR, [id number] 14:49:00 Test Item Value Reference Range Interpretation [...] and its performance characteristics determined by the [facility] Path ology Department, Section of Molecular Pathology. It has not been cleared or approved by the U.S. Food and Drug Administration (FDA), since FDA approval is not required for clinical use of the test. Validation was done as required by The Clinical Laboratory Improvement Amendments of 1988.TACROLIMUS LEVEL 2018-01-13 12:09:00 Test Item Value Reference Range Interpretation Comments TACROLIMUS BLOOD (NOLVIA) (test 3.9 ng/mL 10.0-20.0 L code = 657) POCT-GLUCOSE [id number] 11:51:00 Test Item Value Reference Range Interpretation Comments POC-GLUCOSE METER 121 mg/dL 70-110 H TESTED AT [facility] 6720 ([facility]) (test code = PARESH [place] 1538) [address] RAD, CHEST, 1 VIEW, NON [id number] 08:39:00Reason for exam:->Follow-up respiratory failureShould this be performed at the bedside?->YesFINAL REPORT Chest one view compared to January 07, 2018 Discussion: Moderately improved bilateral airspace opacities. Right PICC line in place. No gross effusion or pneumothorax. Signed: Raul Callejas Verified Date/Time: 01/13/2018 08:39:15 Reading Location: [facility] Reading Room TIC FUNCTION [id number] 07:13:00 Test Item Value Reference Range Interpretation [...] = 55 U/L 6-55 347) BASIC METABOLIC [id number] 07:13:00 Test Item Value Reference Range Interpretation [...] S NOT APPLICABLE FOR DIALYSIS PATIEN TS. [id number] 06:52:00 Test Item Value Reference Range Interpretation [...] PERCENT (BEAKER) (test code = 2801) POCT-GLUCOSE [id number] 22:11:00 Test Item Value Reference Range Interpretation Comments POC-GLUCOSE METER 165 mg/dL 70-110 H TESTED AT [facility] 67[address] (BEAKER) (test code = PARESH [place] 1538) [address] C. DIFFICILE GDH [id number] 16:06:00 Test Item Value Reference Range Interpretation Comments CDT TOXIN (test code Negative Negative = [id number]) CDT GDH ANTIGEN (test Negative Negative No ind ication of code = [id number]) Clostridi um difficile infection and n o colonization. Discontinue ent henrique isolation and t herapy. Testing performed by [employer] Rapid Cassette Assay. For GDH, published sensitivity of the assay is 98.7% compared to cytotoxicity testing. For Toxin AB, published sensitivity is 87.8% and specificity 99.4% compared to cytotoxicity testing.Verification of kit performance was done by the [facility] Microbiology Lab prior to clinical use.TACROLIMUS [id number] 10:30:00 Test Item Value Reference Range Interpretation Comments TACROLIMUS BLOOD (BEAKER) (test 2.7 ng/mL 10.0-20.0 L code = 657) [id number] 07:37:00 Test Item Value Reference Range Interpretation Comments PHOSPHORUS (BEAKER) (test code = 4.1 mg/dL 2.3-4.7 604) BASIC METABOLIC [id number] 07:37:00 Test Item Value Reference Range Interpretation [...] NOT APPLICABLE FOR DIALYSIS PATIEN TS. POCT-GLUCOSE [id number] 07:30:00 Test Item Value Reference Range Interpretation Comments POC-GLUCOSE METER 103 mg/dL 70-110 TESTED AT [facility] 6720 (AKER) (test code = PARESH [place] 1538) [address] CBC W/PLT COUNT & AUTO [id number] 07:16:00 Test Item Value Reference Range Interpretation [...] PERCENT (BEAKER) (test code = 2801) POCT-GLUCOSE [id number] 21:04:00 Test Item Value Reference Range Interpretation Comments POC-GLUCOSE METER 161 mg/dL 70-110 H TESTED AT [facility] 67[address] (BEAKER) (test code = PARESH [place] 1538) [address] TACROLIMUS [id number] 10:37:00 Test Item Value Reference Range Interpretation Comments TACROLIMUS BLOOD (BEAKER) (test 3.4 ng/mL 10.0-20.0 L code = 657) [id number] 07:21:00 Test Item Value Reference Range Interpretation Comments PHOSPHORUS (BEAKER) (test code = 5.3 mg/dL 2.3-4.7 H 604) BASIC METABOLIC [id number] 07:21:00 Test Item Value Reference Range Interpretation [...] PATIEN TS. CBC W/PLT COUNT & AUTO [id number] 07:03:00 Test Item Value Reference Range Interpretation [...] PERCENT (BEAKER) (test code = 2801) POCT-GLUCOSE [id number] 17:24:00 Test Item Value Reference Range Interpretation Comments POC-GLUCOSE METER 178 mg/dL 70-110 H TESTED AT [place] [address] ([facility]) (test code = PARESH [place] 1538) [address] TACROLIMUS [id number] 12:24:00 Test Item Value Reference Range Interpretation Comments TACROLIMUS BLOOD ([facility]) (test 4.3 ng/mL 10.0-20.0 L code = 657) POCT-GLUCOSE [id number] 09:17:00 Test Item Value Reference Range Interpretation Comments POC-GLUCOSE METER 162 mg/dL 70-110 H TESTED AT [place] [address] ([facility]) (test code = PARESH Gracia [facility] 1538) [address] CBC W/PLT COUNT & AUTO [id number] 07:36:00 Test Item Value Reference Range Interpretation Comments WHITE BLOOD CELL COUNT (AKER) 4.9 K/ L 3.5-10.5 (test code = 775) RED BLOOD CELL COUNT (BEAKER) 2.47 M/ L 4.63-6.08 L (test code = 761) HEMOGLOBIN (BEAKER) (test code = 7.7 GM/DL 13.7-17.5 L 410) HEMATOCRIT (BEAKER) (test code = 24.1 % 40.1-51.0 L 411) MEAN CORPUSCULAR VOLUME (AKER) 97.6 fL 79.0-92.2 H (test code = [...] (BEAKER) (test code = 2801) BASIC METABOLIC [id number] 06:41:00 Test Item Value Reference Range Interpretation Comments SODIUM (BEAKER) 143 meq/L 136-145 (test code = 381) POTASSIUM (BEAKER) 3.8 meq/L 3.5-5.1 (test code = 379) CHLORIDE (BEAKER) 104 meq/L 98-107 (test code = 382) CO2 (BEAKER) (test 25 meq/L 22-29 code = 355) BLOOD UREA NITROGEN 86 mg/dL 7-21 H ([facility]) (test code = 354) CREATININE ([facility]) 2.14 mg/dL 0.57-1.25 H (test code = 358) GLUCOSE RANDOM 104 mg/dL 70-105 ([facility]) (test code = 652) CALCIUM (AKER) 7.5 mg/dL 8.4-10.2 L (test code = 697) EGFR ([facility]) (test 32 mL/min/1.73 ESTIMA ABDULLAHI GFR IS code = 1092) sq m NOT ACCURATE CREATININE CLEARANCE IN PREDICTING GLOMERULAR FILTRATION RATE . ESTIMATED GFR I S NOT APPLICABLE FOR DIALYSIS PATIEN TS. [id number] 06:39:00 Test Item Value Reference Range Interpretation Comments PHOSPHORUS ([facility]) (test code = 6.1 mg/dL 2.3-4.7 H 604) LEGIONELLA [id number] 04:55:00 Test Item Value Reference Range Interpretation Comments CULTURE ([facility]) No Legionella species (test code = 1095) isolated POCT-GLUCOSE [id number] 21:37:00 Test Item Value Reference Range Interpretation Comments POC-GLUCOSE METER 174 mg/dL 70-110 H TESTED AT [place] [address] ([facility]) (test code = PARESH Garcia [place] 1538) [address] POCT-GLUCOSE [id number] 18:18:00 Test Item Value Reference Range Interpretation Comments POC-GLUCOSE METER 230 mg/dL 70-110 H TESTED AT [place] [address] ([facility]) (test code = PARESH Garcia [place] 1538) [address] POCT-GLUCOSE [id number] 13:15:00 Test Item Value Reference Range Interpretation Comments POC-GLUCOSE METER 104 mg/dL 70-110 TESTED AT [place] [address] ([facility]) (test code = PARESH Garcia [place] 1538) [address] TACROLIMUS [id number] 11:40:00 Test Item Value Reference Range Interpretation Comments TACROLIMUS BLOOD ([facility]) (test 4.3 ng/mL 10.0-20.0 L code = 657) POCT-GLUCOSE [id number] 09:28:00 Test Item Value Reference Range Interpretation Comments POC-GLUCOSE METER 206 mg/dL 70-110 H TESTED AT [place] [address] ([facility]) (test code = PARESH [place] 1538) [address] BASIC METABOLIC [id number] 07:44:00 Test Item Value Reference Range Interpretation [...] PATIEN TS. CBC W/PLT COUNT & AUTO [id number] 06:46:00 Test Item Value Reference Range Interpretation [...] % 0-1 PERCENT (BEAKER) (test code = 2802) POCT-GLUCOSE [id number] 18:11:00 Test Item Value Reference Range Interpretation Comments POC-GLUCOSE METER 214 mg/dL 70-110 H TESTED AT [place] [address] ([facility]) (test code = PARESH [place] 1538) [address] POCT-GLUCOSE [id number] 12:38:00 Test Item Value Reference Range Interpretation Comments POC-GLUCOSE METER 173 mg/dL 70-110 H TESTED AT [facility] 67[address] ([facility]) (test code = PARESH [place] 1538) [address] TACROLIMUS [id number] 10:03:00 Test Item Value Reference Range Interpretation Comments TACROLIMUS BLOOD (BEAKER) (test 6.2 ng/mL 10.0-20.0 L code = 657) CBC W/PLT COUNT & AUTO [id number] 07:36:00 Test Item Value Reference Range Interpretation [...] Received comment: User comments: Slide comments:HEPATIC FUNCTION [id number] 06:16:00 Test Item Value Reference Range Interpretation [...] 84 U/L 6-55 H 347) BASIC METABOLIC [id number] 06:16:00 Test Item Value Reference Range Interpretation [...] 358) GLUCOSE RANDOM 111 mg/dL 70-105 H ([facility]) (test code = 652) CALCIUM (BEAKER) 8.2 mg/dL 8.4-10.2 L (test code = 697) EGFR (BEAKER) (test 24 mL/min/1.73 ESTIMA ABDULLAHI GFR IS code = 1092) sq m NOT ACCURATE CREATININE CLEARANCE IN PREDICTING GLOMERULAR FILTRATION RATE . ESTIMATED GFR I S NOT APPLICABLE FOR DIALYSIS PATIEN TS. POCT-GLUCOSE [id number] 00:25:00 Test Item Value Reference Range Interpretation Comments POC-GLUCOSE METER 149 mg/dL 70-110 H TESTED AT [facility] 67[address] ([facility]) (test code = [facility] 1538) [address] POCT-GLUCOSE [id number] 18:42:00 Test Item Value Reference Range Interpretation Comments POC-GLUCOSE METER 204 mg/dL 70-110 H TESTED AT [facility] 67 ([facility]) (test code = [facility] Veratect [facility] 1538) [address] POCT-GLUCOSE [id number] 11:49:00 Test Item Value Reference Range Interpretation Comments POC-GLUCOSE METER 104 mg/dL 70-110 TESTED AT [facility] 67 ([facility]) (test code = [facility] 1538) [address] TACROLIMUS [id number] 09:02:00 Test Item Value Reference Range Interpretation Comments TACROLIMUS BLOOD ([facility]) (test 7.4 ng/mL 10.0-20.0 L code = 657) RAD, CHEST, 1 VIEW, NON [id number] 08:16:00Reason for exam:->respiratory failureShould this be performed at the bedside?->YesFINAL REPORT Chest one view compared to January 06 Discussion: Bilateral airspace pulmonary opacities are similar. Lateral lines in place lower SVC level. No gross effusion or pneumothorax. Signed: Raul Callejasepjessica Verified Date/Time: 01/07/2018 08:16:36 Reading Location: [facility] Radiology Reading Room BASIC METABOLIC [id number] 05:23:00 Test Item Value Reference Range Interpretation [...] PATIEN TS. CBC W/PLT COUNT & AUTO [id number] 05:21:00 Test Item Value Reference Range Interpretation [...] (BEAKER) (test code = 2801) HEPATIC FUNCTION [id number] 05:21:00 Test Item Value Reference Range Interpretation [...] = 91 U/L 6-55 H 347) POCT-GLUCOSE [id number] 23:36:00 Test Item Value Reference Range Interpretation Comments POC-GLUCOSE METER 86 mg/dL 70-110 TESTED AT [place] [address] (BEAKER) (test code = [place] [address] 1538) POCT-GLUCOSE [id number] 22:44:00 Test Item Value Reference Range Interpretation Comments POC-GLUCOSE METER 138 mg/dL 70-110 H TESTED AT [facility] [facility] (test code = PARESH [place] 1538) [address] HEPATOBILIARY [id number] 16:02:00Per REPORT PROCEDURE: HEPATOBILIARY SCAN CPT CODE: 30506 INDICATION: Right upper quadrant pain, fever, leukocytosis [...] Aiken Verified Date/Time: 01/06/2018 16:02:34 Reading Location: [address] Reading Room El ectronically signed by: KASIA AIKEN MD on 01/06/2018 04:02 PMTACROLIMUS [id number] 10:39:00 Test Item Value Reference Range Interpretation Comments TACROLIMUS BLOOD (KATELYNN) (test 9.1 ng/mL 10.0-20.0 L code = 657) RAD, CHEST, 1 VIEW, NON [id number] 03:58:00Reason for exam:->respiratory failureShould this be performed [...] In summary, no significant interval change. Signed: Branden Reaganeport Verified Date/Time: 01/06/2018 03:58:03 Reading Location: [address] Reading Room CBC W/PLT COUNT & AUTO [id number] 03:53:00 Test Item Value Reference Range Interpretation [...] (BEAKER) (test code = 2801) BASIC METABOLIC [id number] 03:51:00 Test Item Value Reference Range Interpretation [...] S NOT APPLICABLE FOR DIALYSIS PATIEN TS. [id number] 03:51:00 Test Item Value Reference Range Interpretation Comments MAGNESIUM (BEAKER) (test code = 2.1 mg/dL 1.6-2.6 627) [id number] 03:51:00 Test Item Value Reference Range Interpretation Comments PHOSPHORUS (BEAKER) (test code = 3.9 mg/dL 2.3-4.7 604) POCT-GLUCOSE [id number] 00:02:00 Test Item Value Reference Range Interpretation Comments POC-GLUCOSE METER 110 mg/dL 70-110 TESTED AT [facility] (test code = PARESH Garcia [facility] 1538) [address] BASIC METABOLIC [id number] 18:14:00 Test Item Value Reference Range Interpretation [...] NOT APPLICABLE FOR DIALYSIS PATIEN TS. POCT-GLUCOSE [id number] 17:56:00 Test Item Value Reference Range Interpretation Comments POC-GLUCOSE METER 143 mg/dL 70-110 H TESTED AT [facility] 67[address] ([facility] (test code = PARESH Garcia [facility] 1538) [address] [id number] 16:39:00 Test Item Value Reference Range Interpretation Comments POTASSIUM (BEAKER) (test code = 4.7 meq/L 3.5-5.1 379) CALCIUM, [id number] 16:33:00 Test Item Value Reference Range Interpretation Comments CALCIUM IONIZED (BEAKER) (test 1.11 mmol/L 1.12-1.27 L code = 698) PH, BLOOD (BEAKER) (test code = 7.53 1810) [id number] 12:31:00 Test Item Value Reference Range Interpretation Comments POTASSIUM (BEAKER) (test code = 4.2 meq/L 3.5-5.1 379) POCT-GLUCOSE [id number] 12:06:00 Test Item Value Reference Range Interpretation Comments POC-GLUCOSE METER 137 mg/dL 70-110 H TESTED AT [facility] 67[address] (BEAKER) (test code = PARESH [place] 1537) [address] [id number] 10:53:00 Test Item Value Reference Range Interpretation Comments AMYLASE (BEAKER) (test code = 349) 53 U/L 25-125 Specimen slightly [id number] 10:53:00 Test Item Value Reference Range Interpretation Comments LIPASE (BEAKER) (test code = 749) 34 U/L 8-78 Specimen slightly ictericTACROLIMUS [id number] 10:02:00 Test Item Value Reference Range Interpretation Comments TACROLIMUS BLOOD (BEAKER) (test 8.9 ng/mL 10.0-20.0 L code = 657) [id number] 08:58:00 Test Item Value Reference Range Interpretation Comments PHOSPHORUS (BEAKER) (test code = 2.5 mg/dL 2.3-4.7 604) [id number] 08:58:00 Test Item Value Reference Range Interpretation Comments MAGNESIUM (BEAKER) (test code = 1.9 mg/dL 1.6-2.6 627) BASIC METABOLIC [id number] 08:58:00 Test Item Value Reference Range Interpretation [...] NOT APPLICABLE FOR DIALYSIS PATIEN TS. CALCIUM, [id number] 08:38:00 Test Item Value Reference Range Interpretation Comments CALCIUM IONIZED (BEAKER) (test 1.07 mmol/L 1.12-1.27 L code = 698) PH, BLOOD (BEAKER) (test code = 7.51 1810) RAD, CHEST, 1 VIEW, NON [id number] 06:36:00Reason for exam:->respiratory failureShould this be performed [...] MDReport Verified Date/Time: 01/05/2018 06:36:45 Reading Location: [address] Transitional Reading Room BASIC METABOLIC [id number] 06:33:00 Test Item Value Reference Range Interpretation [...] DIALYSIS PATIEN TS. Specimen slightly ictericHEPATIC FUNCTION [id number] 06:33:00 Test Item Value Reference Range Interpretation [...] Specimen slightly ictericCBC W/PLT COUNT & AUTO [id number] 06:07:00 Test Item Value Reference Range Interpretation [...] H PERCENT (BEAKER) (test code = 2801) [id number] 00:54:00 Test Item Value Reference Range Interpretation Comments POTASSIUM (BEAKER) (test code = 4.0 meq/L 3.5-5.1 379) CALCIUM, [id number] 00:39:00 Test Item Value Reference Range Interpretation Comments CALCIUM IONIZED (BEAKER) (test 1.09 mmol/L 1.12-1.27 L code = 698) PH, BLOOD (BEAKER) (test code = 7.49 1810) POCT-GLUCOSE [id number] 00:12:00 Test Item Value Reference Range Interpretation Comments POC-GLUCOSE METER 96 mg/dL 70-110 TESTED AT [facility] 6720 (BEAKER) (test code = [place] [address]) [id number] 20:37:00 Test Item Value Reference Range Interpretation Comments POTASSIUM (BEAKER) (test code = 4.3 meq/L 3.5-5.1 379) [id number] 20:37:00 Test Item Value Reference Range Interpretation Comments MAGNESIUM (BEAKER) (test code = 2.0 mg/dL 1.6-2.6 627) [id number] 20:37:00 Test Item Value Reference Range Interpretation Comments PHOSPHORUS (BEAKER) (test code = 2.1 mg/dL 2.3-4.7 L 604) [id number] 17:29:00 Test Item Value Reference Range Interpretation Comments POTASSIUM (BEAKER) (test code = 4.6 meq/L 3.5-5.1 379) BASIC METABOLIC [id number] 17:29:00 Test Item Value Reference Range Interpretation [...] FOR DIALYSIS PATIEN TS. Specimen slightly ictericCALCIUM, [id number] 17:06:00 Test Item Value Reference Range Interpretation Comments CALCIUM IONIZED (BEAKER) (test 1.09 mmol/L 1.12-1.27 L code = 698) PH, BLOOD (BEAKER) (test code = 7.49 1810) TACROLIMUS [id number] 14:39:00 Test Item Value Reference Range Interpretation Comments TACROLIMUS BLOOD (BEAKER) (test 9.5 ng/mL 10.0-20.0 L code = 657) [id number] 13:49:00 Test Item Value Reference Range Interpretation Comments POTASSIUM (BEAKER) (test code = 4.4 meq/L 3.5-5.1 379) POCT-GLUCOSE [id number] 12:21:00 Test Item Value Reference Range Interpretation Comments POC-GLUCOSE METER 182 mg/dL 70-110 H TESTED AT [facility] 6720 (BEAKER) (test code = PARESH [place] 1538) [address] [id number] 10:13:00 Test Item Value Reference Range Interpretation Comments MAGNESIUM (BEAKER) (test code = 2.3 mg/dL 1.6-2.6 627) BASIC METABOLIC [id number] 10:13:00 Test Item Value Reference Range Interpretation [...] Specimen slightly ictericRAD, CHEST, 1 VIEW, NON [id number] 09:57:00Reason for exam:->respiratory failureShould this be performed [...] MDReport Verified Date/Time: 01/04/2018 09:57:17 Reading Location: [address] [place] Body Reading Room CALCIUM, [id number] 09:33:00 Test Item Value Reference Range Interpretation Comments CALCIUM IONIZED (BEAKER) (test 1.12 mmol/L 1.12-1.27 code = 698) PH, BLOOD (BEAKER) (test code = 7.45 1810) Check serum Ionized Calcium level after 4 hours after IV Calcium replacement. [id number] 06:16:00 Test Item Value Reference Range Interpretation Comments PHOSPHORUS (BEAKER) (test code = 3.2 mg/dL 2.3-4.7 604) [id number] 06:16:00 Test Item Value Reference Range Interpretation Comments MAGNESIUM (BEAKER) (test code = 1.9 mg/dL 1.6-2.6 627) BASIC METABOLIC [id number] 06:16:00 Test Item Value Reference Range Interpretation [...] Specimen slightly ictericCBC W/PLT COUNT & AUTO [id number] 05:51:00 Test Item Value Reference Range Interpretation [...] (BEAKER) (test code = 2801) BLOOD GAS, [id number] 05:27:00 Test Item Value Reference Range Interpretation [...] (test code = 1819) 40.0 % CALCIUM, [id number] 05:27:00 Test Item Value Reference Range Interpretation Comments CALCIUM IONIZED (BEAKER) (test 1.14 mmol/L 1.12-1.27 code = 698) PH, BLOOD (BEAKER) (test code = 7.42 1810) [id number] 00:40:00 Test Item Value Reference Range Interpretation Comments POTASSIUM (BEAKER) (test code = 4.2 meq/L 3.5-5.1 379) CALCIUM, [id number] 00:26:00 Test Item Value Reference Range Interpretation Comments CALCIUM IONIZED (BEAKER) (test 1.15 mmol/L 1.12-1.27 code = 698) PH, BLOOD (BEAKER) (test code = 7.42 1810) POCT-GLUCOSE [id number] 00:09:00 Test Item Value Reference Range Interpretation Comments POC-GLUCOSE METER 224 mg/dL 70-110 H TESTED AT [facility] 6720 (BEAKER) (test code = PAR[place] 1538) [address] [id number] 21:19:00 Test Item Value Reference Range Interpretation Comments POTASSIUM (BEAKER) (test code = 4.6 meq/L 3.5-5.1 379) [id number] 21:19:00 Test Item Value Reference Range Interpretation Comments MAGNESIUM (BEAKER) (test code = 1.9 mg/dL 1.6-2.6 627) [id number] 21:19:00 Test Item Value Reference Range Interpretation Comments PHOSPHORUS (BEAKER) (test code = 2.7 mg/dL 2.3-4.7 604) BASIC METABOLIC [id number] 19:10:00 Test Item Value Reference Range Interpretation [...] NOT APPLICABLE FOR DIALYSIS PATIEN TS. POCT-GLUCOSE [id number] 18:48:00 Test Item Value Reference Range Interpretation Comments POC-GLUCOSE METER 176 mg/dL 70-110 H TESTED AT [facility] 6720 (BEAKER) (test code = PARESH Garcia [place] 1538) [address] [id number] 16:50:00 Test Item Value Reference Range Interpretation Comments POTASSIUM (BEAKER) (test code = 4.9 meq/L 3.5-5.1 379) CALCIUM, [id number] 16:31:00 Test Item Value Reference Range Interpretation Comments CALCIUM IONIZED (BEAKER) (test 1.12 mmol/L 1.12-1.27 code = 698) PH, BLOOD (BEAKER) (test code = 7.42 1810) POCT-GLUCOSE [id number] 13:33:00 Test Item Value Reference Range Interpretation Comments POC-GLUCOSE METER 259 mg/dL 70-110 H TESTED AT [facility] 6720 (BEAKER) (test code = PAR[place] 1538) [address] [id number] 13:26:00 Test Item Value Reference Range Interpretation Comments POTASSIUM (BEAKER) (test code = 4.5 meq/L 3.5-5.1 379) [id number] 10:47:00 Test Item Value Reference Range Interpretation Comments CORTISOL, TOTAL (BEAKER) (test code 8.7 ug/dL 3.7-19.4 = 2755) It is important that this lab be drawn as close to 8 am as possible. Thanks! [id number] 09:00:00 Test Item Value Reference Range Interpretation Comments PHOSPHORUS (BEAKER) (test code = 2.4 mg/dL 2.3-4.7 604) [id number] 09:00:00 Test Item Value Reference Range Interpretation Comments MAGNESIUM (BEAKER) (test code = 2.1 mg/dL 1.6-2.6 627) BASIC METABOLIC [id number] 09:00:00 Test Item Value Reference Range Interpretation [...] FOR DIALYSIS PATIEN TS. Specimen slightly ictericTACROLIMUS [id number] 08:45:00 Test Item Value Reference Range Interpretation Comments TACROLIMUS BLOOD (BEAKER) (test 8.1 ng/mL 10.0-20.0 L code = 657) CBC W/PLT COUNT & AUTO [id number] 08:28:00 Test Item Value Reference Range Interpretation [...] 3438) Received comment: User comments: Slide comments:CALCIUM, [id number] 08:15:00 Test Item Value Reference Range Interpretation Comments CALCIUM IONIZED (BEAKER) (test 1.03 mmol/L 1.12-1.27 L code = 698) PH, BLOOD (BEAKER) (test code = 7.40 1810) RAD, CHEST, 1 VIEW, NON [id number] 07:27:00Reason for exam:->respiratory failureShould this be performed at the bedside?->YesFINAL REPORT Chest one view. Clinical history: respiratory failure Comparison: 01/02/2018 Discussion: A frontal chest is provided. Cardiomediastinal contours are unchanged. Lines and tubes are in stable position. Extensive bilateral interstitial and airspace opacities appear unchanged. Small right pleural effusion is suspected. No pneumothorax. Signed: Tonny Perry Verified Date/Time: 01/03/2018 07:27:35 Reading Location: [facility] Radiology Reading Room POCT-GLUCOSE [id number] 06:51:00 Test Item Value Reference Range Interpretation Comments POC-GLUCOSE METER 230 mg/dL 70-110 H TESTED AT [facility] 6720 (BEAKER) (test code = PAR[place] 1538) [address] [id number] 04:24:00 Test Item Value Reference Range Interpretation Comments MAGNESIUM (BEAKER) (test code = 2.1 mg/dL 1.6-2.6 627) BASIC METABOLIC [id number] 04:24:00 Test Item Value Reference Range Interpretation [...] FOR DIALYSIS PATIEN TS. Specimen slightly ictericCALCIUM, [id number] 04:07:00 Test Item Value Reference Range Interpretation Comments CALCIUM IONIZED (BEAKER) (test 1.12 mmol/L 1.12-1.27 code = 698) PH, BLOOD (BEAKER) (test code = 7.39 1810) BLOOD GAS, [id number] 04:07:00 Test Item Value Reference Range Interpretation [...] (BEAKER) (test code = 1819) 40.0 % [id number] 01:24:00 Test Item Value Reference Range Interpretation Comments POTASSIUM (BEAKER) (test code = 4.0 meq/L 3.5-5.1 379) CALCIUM, [id number] 01:04:00 Test Item Value Reference Range Interpretation Comments CALCIUM IONIZED (BEAKER) (test 1.09 mmol/L 1.12-1.27 L code = 698) PH, BLOOD (BEAKER) (test code = 7.36 1810) POCT-GLUCOSE [id number] 00:16:00 Test Item Value Reference Range Interpretation Comments POC-GLUCOSE METER 227 mg/dL 70-110 H TESTED AT [facility] 6720 (BEAKER) (test code = PARESH Garcia [place] 1538) [address] [id number] 20:37:00 Test Item Value Reference Range Interpretation Comments POTASSIUM (BEAKER) (test code = 4.4 meq/L 3.5-5.1 379) [id number] 20:37:00 Test Item Value Reference Range Interpretation Comments MAGNESIUM (BEAKER) (test code = 1.9 mg/dL 1.6-2.6 627) [id number] 20:37:00 Test Item Value Reference Range Interpretation Comments PHOSPHORUS (BEAKER) (test code = 1.8 mg/dL 2.3-4.7 L 604) BASIC METABOLIC [id number] 18:56:00 Test Item Value Reference Range Interpretation [...] FOR DIALYSIS PATIEN TS. Specimen slightly ictericPOCT-GLUCOSE [id number] 18:20:00 Test Item Value Reference Range Interpretation Comments POC-GLUCOSE METER 224 mg/dL 70-110 H TESTED AT [facility] 6720 (BEAKER) (test code = PARESH [place] 1538) [address] [id number] 17:48:00 Test Item Value Reference Range Interpretation Comments POTASSIUM (BEAKER) 4.7 meq/L 3.5-5.1 Specimen slightly (test code = 379) hemolyzed CALCIUM, [id number] 17:35:00 Test Item Value Reference Range Interpretation Comments CALCIUM IONIZED (BEAKER) (test 1.12 mmol/L 1.12-1.27 code = 698) PH, BLOOD (BEAKER) (test code = 7.41 1810) PLATELET [id number] 17:35:00 Test Item Value Reference Range Interpretation Comments PLATELET COUNT (BEAKER) (test code 31 K/CU MM 150-450 L = 756) POCT-GLUCOSE [id number] 12:15:00 Test Item Value Reference Range Interpretation Comments POC-GLUCOSE METER 181 mg/dL 70-110 H TESTED AT [facility] 6720 (BEAKER) (test code = PAR[place] 1538) [address] [id number] 10:15:00 Test Item Value Reference Range Interpretation Comments POTASSIUM (BEAKER) (test code = 4.4 meq/L 3.5-5.1 379) [id number] 10:15:00 Test Item Value Reference Range Interpretation Comments MAGNESIUM (BEAKER) (test code = 2.3 mg/dL 1.6-2.6 627) [id number] 10:15:00 Test Item Value Reference Range Interpretation Comments PHOSPHORUS (BEAKER) (test code = 2.2 mg/dL 2.3-4.7 L 604) BASIC METABOLIC [id number] 10:15:00 Test Item Value Reference Range Interpretation [...] FOR DIALYSIS PATIEN TS. Specimen slightly ictericTACROLIMUS [id number] 09:21:00 Test Item Value Reference Range Interpretation Comments TACROLIMUS BLOOD (BEAKER) (test 7.8 ng/mL 10.0-20.0 L code = 657) CALCIUM, [id number] 09:15:00 Test Item Value Reference Range Interpretation Comments CALCIUM IONIZED (BEAKER) (test 1.15 mmol/L 1.12-1.27 code = 698) PH, BLOOD (BEAKER) (test code = 7.42 1810) RAD, CHEST, 1 VIEW, NON [id number] 09:14:00Reason for exam:->respiratory failureShould this be performed [...] Verified Date/Time: 01/02/2018 09:14:20 Reading Location: [facility] Radiology Reading Room BLOOD GAS, [id number] 05:19:00 Test Item Value Reference Range Interpretation [...] 40.0 % CBC W/PLT COUNT & AUTO [id number] 05:04:00 Test Item Value Reference Range Interpretation [...] (BEAKER) (test code = 2801) BASIC METABOLIC [id number] 05:04:00 Test Item Value Reference Range Interpretation [...] FOR DIALYSIS PATIEN TS. Specimen slightly ictericCALCIUM, [id number] 04:48:00 Test Item Value Reference Range Interpretation Comments CALCIUM IONIZED (BEAKER) (test 1.10 mmol/L 1.12-1.27 L code = 698) PH, BLOOD (BEAKER) (test code = 7.39 1810) [id number] 01:06:00 Test Item Value Reference Range Interpretation Comments POTASSIUM (BEAKER) (test code = 4.2 meq/L 3.5-5.1 379) CALCIUM, [id number] 00:53:00 Test Item Value Reference Range Interpretation Comments CALCIUM IONIZED (BEAKER) (test 1.17 mmol/L 1.12-1.27 code = 698) PH, BLOOD (BEAKER) (test code = 7.36 1810) POCT-GLUCOSE [id number] 00:37:00 Test Item Value Reference Range Interpretation Comments POC-GLUCOSE METER 233 mg/dL 70-110 H TESTED AT [facility] 6720 (BEAKER) (test code = PARESH Garcia [place] 1538) [address] [id number] 21:09:00 Test Item Value Reference Range Interpretation Comments POTASSIUM (BEAKER) (test code = 4.2 meq/L 3.5-5.1 379) [id number] 21:09:00 Test Item Value Reference Range Interpretation Comments MAGNESIUM (BEAKER) (test code = 2.1 mg/dL 1.6-2.6 627) [id number] 21:09:00 Test Item Value Reference Range Interpretation Comments PHOSPHORUS (BEAKER) (test code = 2.3 mg/dL 2.3-4.7 604) POCT-GLUCOSE [id number] 18:00:00 Test Item Value Reference Range Interpretation Comments POC-GLUCOSE METER 262 mg/dL 70-110 H TESTED AT [facility] 6720 (BEAKER) (test code = PAR[place] 1538) [address] BASIC METABOLIC [id number] 17:51:00 Test Item Value Reference Range Interpretation [...] DIALYSIS PATIEN TS. Specimen slightly ictericVANCOMYCIN LEVEL, [id number] 17:51:00 Test Item Value Reference Range Interpretation Comments VANCOMYCIN TROUGH (BEAKER) (test 11.6 ug/mL 10.0-20.0 code = 522) CALCIUM, [id number] 17:26:00 Test Item Value Reference Range Interpretation Comments CALCIUM IONIZED (BEAKER) (test 1.09 mmol/L 1.12-1.27 L code = 698) PH, BLOOD (BEAKER) (test code = 7.38 1810) [id number] 14:04:00 Test Item Value Reference Range Interpretation Comments POTASSIUM (BEAKER) (test code = 4.0 meq/L 3.5-5.1 379) BRONCHIAL CULTURE + GRAM [id number] 13:45:00 Test Item Value Reference Range Interpretation Comments CULTURE (BEAKER) (test code No growth = 1095) GRAM STAIN RESULT (BEAKER) 1+ WBCs (test code = 1123) GRAM STAIN RESULT (BEAKER) No organisms seen (test code = 39515) POCT-GLUCOSE [id number] 13:12:00 Test Item Value Reference Range Interpretation Comments POC-GLUCOSE METER 210 mg/dL 70-110 H TESTED AT [facility] 6720 (BEAKER) (test code = PAR[place] 1538) [address] BLOOD GAS, [id number] 11:50:00 Test Item Value Reference Range Interpretation [...] (BEAKER) (test code = 1819) 40.0 % [id number] 09:26:00 Test Item Value Reference Range Interpretation Comments POTASSIUM (BEAKER) (test code = 4.3 meq/L 3.5-5.1 379) [id number] 09:26:00 Test Item Value Reference Range Interpretation Comments MAGNESIUM (BEAKER) (test code = 2.1 mg/dL 1.6-2.6 627) [id number] 09:26:00 Test Item Value Reference Range Interpretation Comments PHOSPHORUS (BEAKER) (test code = 3.0 mg/dL 2.3-4.7 604) TACROLIMUS [id number] 09:06:00 Test Item Value Reference Range Interpretation Comments TACROLIMUS BLOOD (BEAKER) (test 7.8 ng/mL 10.0-20.0 L code = 657) POCT-GLUCOSE [id number] 08:39:00 Test Item Value Reference Range Interpretation Comments POC-GLUCOSE METER 255 mg/dL 70-110 H TESTED AT [facility] 6720 (BEAKER) (test code = [place] 1538) [address] CALCIUM, [id number] 08:34:00 Test Item Value Reference Range Interpretation Comments CALCIUM IONIZED (BEAKER) (test 1.14 mmol/L 1.12-1.27 code = 698) PH, BLOOD (BEAKER) (test code = 7.39 1810) CBC W/PLT COUNT & AUTO [id number] 07:35:00 Test Item Value Reference Range Interpretation [...] Received comment: User comments: Slide comments:BLOOD GAS, [id number] 06:11:00 Test Item Value Reference Range Interpretation [...] (test code = 1819) 40.0 % BLOOD [id number] 06:00:00 Test Item Value Reference Range Interpretation Comments CULTURE (BEAKER) (test No growth in 5 days code = 1095) BLOOD [id number] 06:00:00 Test Item Value Reference Range Interpretation Comments CULTURE (BEAKER) (test No growth in 5 days code = 1095) RAD, CHEST, 1 VIEW, NON [id number] 05:37:00Reason for exam:->shortness of breathShould this be performed at the bedside?->YesFINAL REPORT Comparison exam: 12/31/2017 Diffuse bilateral pulmonary opacities, unchanged. Blunting of the right costophrenic angle. Stable cardiomediastinal contours. Appropriate position of the support hardware. Signed: iMo [place] Verified Date/Time: 01/01/2018 05:37:06 Reading Location: [address] Reading Room BASIC METABOLIC [id number] 05:06:00 Test Item Value Reference Range Interpretation [...] APPLICABLE FOR DIALYSIS PATIEN TS. Specimen slightly [id number] 01:21:00 Test Item Value Reference Range Interpretation Comments POTASSIUM (BEAKER) (test code = 4.3 meq/L 3.5-5.1 379) CRYPTOCOCCAL [id number] 01:09:00 Test Item Value Reference Range Interpretation Comments CRYPTOCOCCAL ANTIGEN, SERUM Negative Negative, Interference (BEAKER) (test code = 1828) CALCIUM, [id number] 00:26:00 Test Item Value Reference Range Interpretation Comments CALCIUM IONIZED (BEAKER) (test 1.09 mmol/L 1.12-1.27 L code = 698) PH, BLOOD (BEAKER) (test code = 7.38 1810) POCT-GLUCOSE [id number] 00:02:00 Test Item Value Reference Range Interpretation Comments POC-GLUCOSE METER 165 mg/dL 70-110 H TESTED AT [place] [address] [facility] (test code = [facility] 1538) [address] [id number] 21:18:00 Test Item Value Reference Range Interpretation Comments POTASSIUM (BEAKER) (test code = 4.6 meq/L 3.5-5.1 379) [id number] 21:18:00 Test Item Value Reference Range Interpretation Comments MAGNESIUM (BEAKER) (test code = 2.1 mg/dL 1.6-2.6 627) [id number] 21:18:00 Test Item Value Reference Range Interpretation Comments PHOSPHORUS (BEAKER) (test code = 4.2 mg/dL 2.3-4.7 604) POCT-GLUCOSE [id number] 18:03:00 Test Item Value Reference Range Interpretation Comments POC-GLUCOSE METER 142 mg/dL 70-110 H TESTED AT [place] [address] [facility] (test code = [facility] [place] 1538) [address] BLOOD GAS, [id number] 17:55:00 Test Item Value Reference Range Interpretation [...] (BEAKER) (test code = 1819) 40.0 % [id number] 17:29:00 Test Item Value Reference Range Interpretation Comments POTASSIUM (BEAKER) (test code = 4.9 meq/L 3.5-5.1 379) CALCIUM, [id number] 16:38:00 Test Item Value Reference Range Interpretation Comments CALCIUM IONIZED (BEAKER) (test 1.05 mmol/L 1.12-1.27 L code = 698) PH, BLOOD (BEAKER) (test code = 7.37 1810) [id number] 14:13:00Medical Cytology Report Case: [id number] Authorizing Provider: Yray Eastman MD Collected: 12/30/2017 1434 Ordering Location: [address] Received: 12/30/2017 1620 Pathologist: Sarita Painter MD Specimen: Lung, Right Middle Lobe, BAL RIGHT MIDDLE LOBELUNG, BAL (CYTOSPINS): - NEGATIVE FOR MALIGNANCY LIMITED BY OBSCURING ACUTE INFLAMMATION AND SCANT PULMONARY ELEMENTS The GMS stains are negative for Pneumocystis organisms and other fungi. No viral inclusions are seen. - The iron stain is negative Signing Pathologist Direct Phone Line: [phone] signed by Sarita Painter MD on 12/31/2017 at 2:13 [id number], 20402Pemzbc post lung transplant, evaluate for infection and rejection.RIGHT MIDDLE LOBE LUNG BALPrepared 3 cytospins, 1 iron stain and 1 GMS from 40 ml cytorich red fixative sampleCollected: 0 30074Pthpdzbd: [id number] following special studies were performed on this case and the interpretation is incorporated in the diagnostic report above:GMS, [facility], Department of Pathology, [address] [place] [address], YdgrljLucile [facility], [facility] of [facility]ology, [address] [place] [address], AvgmxqLucile [facility], Department of Pathology, [address] [place] [address], [place] [address], [id number] 13:49:00 Test Item Value Reference Range Interpretation Comments POTASSIUM (BEAKER) (test code = 4.9 meq/L 3.5-5.1 379) RAD, ABDOMEN/KUB, 1 VIEW [id number] 13:24:00Reason for exam:->corpak placement Should this be [...] [place] Verified Date/Time: 12/31/2017 13:24:39 Reading Location: [facility] Radiology Reading Room POCT-GLUCOSE [id number] 12:27:00 Test Item Value Reference Range Interpretation Comments POC-GLUCOSE METER 170 mg/dL 70-110 H TESTED AT [place] [address] (BEAKER) (test code = PARESH Garcia [facility] 1538) [address] SPIN/CONCENTRATION [id number] 12:24:00 Test Item Value Reference Range Interpretation Comments CONCENTRATION CHARGED (BEAKER) (test Done code = 2657) [id number] 09:52:00 Test Item Value Reference Range Interpretation Comments POTASSIUM (BEAKER) (test code = 4.7 meq/L 3.5-5.1 379) [id number] 09:52:00 Test Item Value Reference Range Interpretation Comments MAGNESIUM (BEAKER) (test code = 2.3 mg/dL 1.6-2.6 627) [id number] 09:52:00 Test Item Value Reference Range Interpretation Comments PHOSPHORUS (BEAKER) (test code = 5.3 mg/dL 2.3-4.7 H 604) TACROLIMUS [id number] 08:55:00 Test Item Value Reference Range Interpretation Comments TACROLIMUS BLOOD (BEAKER) (test 7.2 ng/mL 10.0-20.0 L code = 657) CALCIUM, [id number] 08:29:00 Test Item Value Reference Range Interpretation Comments CALCIUM IONIZED (BEAKER) (test 1.01 mmol/L 1.12-1.27 L code = 698) PH, BLOOD (BEAKER) (test code = 7.36 1810) Check serum Ionized Calcium level after 4 hours after IV Calcium replacement. RAD, CHEST, 1 VIEW, NON [id number] 06:37:00Reason for exam:->shortness of breathShould this be performed at the bedside?->YesFINAL REPORT Comparison exam: 12/30/2017 Extensive bilateral airspace opacities unchanged. Stable cardiomediastinal contours. Appropriate position of the support hardware. Signed: Mio Fink MDReport Verified Date/Time: 12/31/2017 06:37:39 Reading Location: [address] Transitional Reading Room BASIC METABOLIC [id number] 04:02:00 Test Item Value Reference Range Interpretation [...] DIALYSIS PATIEN TS. Specimen slightly ictericHEPATIC FUNCTION [id number] 03:57:00 Test Item Value Reference Range Interpretation [...] Specimen slightly ictericCBC W/PLT COUNT & AUTO [id number] 03:43:00 Test Item Value Reference Range Interpretation [...] (BEAKER) (test code = 2801) BLOOD GAS, [id number] 03:30:00 Test Item Value Reference Range Interpretation [...] code = 1819) 65.0 % OXYGEN SATURATION, [id number] 01:31:00 Test Item Value Reference Range Interpretation Comments O2 SATURATION (MEASURED) (BEAKER) 87.4 % (test code = 1455) CALCIUM, [id number] 01:26:00 Test Item Value Reference Range Interpretation Comments CALCIUM IONIZED (BEAKER) (test 0.93 mmol/L 1.12-1.27 L code = 698) PH, BLOOD (BEAKER) (test code = 7.32 1810) Check serum Ionized Calcium level after 4 hours after IV Calcium replacement. BLOOD GAS, [id number] 01:12:00 Test Item Value Reference Range Interpretation [...] code = 1819) 80.0 % BASIC METABOLIC [id number] 00:59:00 Test Item Value Reference Range Interpretation [...] APPLICABLE FOR DIALYSIS PATIEN TS. Specimen slightly [id number] 00:57:00 Test Item Value Reference Range Interpretation Comments MAGNESIUM (BEAKER) (test code = 2.2 mg/dL 1.6-2.6 627) LACTIC ACID, ARTERIAL, WHOLE [id number] 00:55:00 Test Item Value Reference Range Interpretation Comments LACTATE BLOOD ARTERIAL (2) 1.3 mmol/L 0.5-2.2 (BEAKER) (test code = 2874) Effective 11/02/2015: Units/Reference Range ChangeNew: 0.5-2.2 mmol/L Previous: 5-20 mg/dLSpecimen slightly [id number] 22:04:00 Test Item Value Reference Range Interpretation Comments POTASSIUM (BEAKER) (test code = 5.7 meq/L 3.5-5.1 H 379) [id number] 20:35:00 Test Item Value Reference Range Interpretation Comments PHOSPHORUS (BEAKER) (test code = 6.9 mg/dL 2.3-4.7 H 604) [id number] 20:35:00 Test Item Value Reference Range Interpretation Comments MAGNESIUM (BEAKER) (test code = 2.2 mg/dL 1.6-2.6 627) BODY FLUID CELL COUNT WITH [id number] 18:56:00 Test Item Value Reference Range Interpretation Comments APPEARANCE FLUID (BEAKER) Moderately Bloody Clear A (test code = 510) COLOR FLUID (BEAKER) (test Colorless Colorless, Straw code = 511) RBC FLUID (BEAKER) (test 32912 /cu mm <=1 H code = 513) [...] Tube (BEAKER) (test code = 2873) POCT-GLUCOSE [id number] 18:40:00 Test Item Value Reference Range Interpretation Comments POC-GLUCOSE METER 156 mg/dL 70-110 H TESTED AT [facility] 6720 (BEAKER) (test code = [place] 1538) [address] BLOOD GAS, [id number] 18:15:00 Test Item Value Reference Range Interpretation [...] code = 1819) 80.0 % U/S, RENAL, [id number] 18:05:00Reason for exam:->NOHEMI AND ASSESS PVR FINAL [...] hydronephrosis. There is increased echogenicity bilaterally. Signed: Genesis Bates MDReport Verified Date/Time: 12/30/2017 18:05:19 Reading Location: [facility] B1 P006J Ultrasound [facility] Room CYTOLOGY [id number] 18:00:00 Test Item Value Reference Range Interpretation Comments CYTOLOGY RESULT POINTER See Separate Report (BEAKER) (test code = 2629) BASIC METABOLIC [id number] 15:00:00 Test Item Value Reference Range Interpretation [...] APPLICABLE FOR DIALYSIS PATIEN TS. Specimen slightly [id number] 14:59:00 Test Item Value Reference Range Interpretation Comments MAGNESIUM (BEAKER) (test code = 2.4 mg/dL 1.6-2.6 627) RAD, CHEST, 1 VIEW, NON [id number] 14:45:00Reason for exam:->s/p intubation and dialysis line [...] MDReport Verified Date/Time: 12/30/2017 14:45:29 Reading Location: [facility] Reading Room CALCIUM, IONIZED 2017-12-30 14:42:00 Test Item Value Reference Range Interpretation Comments CALCIUM IONIZED (BEAKER) (test 1.02 mmol/L 1.12-1.27 L code = 698) PH, BLOOD (BEAKER) (test code = 7.21 1810) Check serum Ionized Calcium level after 4 hours after IV Calcium replacement. BLOOD GAS, [id number] 14:42:00 Test Item Value Reference Range Interpretation [...] code = 1819) 100.0 % CMV PCR, [id number] 13:37:00 Test Item Value Reference Range Interpretation [...] and its performance characteristics determined by the [facility] Path ology Department, Section of [...] code = 1819) 100.0 % BLOOD GAS, [id number] 12:16:00 Test Item Value Reference Range Interpretation [...] code = 1819) 100.0 % POCT-LACTIC ACID, [id number] 11:59:00 Test Item Value Reference Range Interpretation Comments POC-LACTIC ACID, 2.1 mmol/L 0.4-1.3 H TESTED AT [facility] [address] (BEAKER) [facility] (test code = 2804) [address] POCT-BLOOD GASES, [id number] 11:59:00 Test Item Value Reference Range Interpretation Comments TEMP, CELSIUS-POC 37.0 (BEAKER) (test code = 1834) FIO2-POC (BEAKER) TESTED AT [place] [address] (test code = 1835) [facility] [address] PH, ARTERIAL-POC 7.151 7.350-7.450 LL (BEAKER) (test [...] L ARTERIAL-POC (BEAKER) (test code = 1841) [id number] 11:59:00 Test Item Value Reference Range Interpretation Comments POC-SODIUM (BEAKER) 136 meq/L 135-148 TESTED A T [place] [address] (test code = 1542) [facility] [address] [id number] 11:59:00 Test Item Value Reference Range Interpretation Comments POC-POTASSIUM 5.7 meq/L 3.6-5.5 H TESTED AT [place] [address] ([facility]) (test code [facility] [address] = 1540) [id number] 11:59:00 Test Item Value Reference Range Interpretation Comments POC-GLUCOSE ([facility]) 123 mg/dL 70-110 H TESTED AT [place] [place] [address] (test code = 1855) CAROLANN Escobar [facility] [address] POCT-CALCIUM [id number] 11:59:00 Test Item Value Reference Range Interpretation Comments POC-CALCIUM IONIZED 1.06 mmol/L 1.12-1.27 L TESTED A T [place] [address] ([facility]) (test code = [facility] Jose [facility] 1536) [address] [id number] 11:59:00 Test Item Value Reference Range Interpretation Comments POC-HEMATOCRIT 25 % 40-50 L TESTED AT [place] [address] ([facility]) (test code = [facility] [place] [address] 1857) [id number] 11:59:00 Test Item Value Reference Range Interpretation Comments POC-HEMOGLOBIN 8.5 g/dL 13.0-16.8 L TESTED AT [place] [address] ([facility]) (test code = [facility] [place] 1856) [address]ZIUHSS AT [place] [address] CAROLANN LYN [facility] [address] TACROLIMUS [id number] 10:52:00 Test Item Value Reference Range Interpretation Comments TACROLIMUS BLOOD ([facility]) (test 8.6 ng/mL 10.0-20.0 L code = 657) RAD, CHEST, 1 VIEW, NON [id number] 04:44:00Reason for exam:->shortness of breathShould this be performed at the bedside?->YesFINAL REPORT Comparison exam: 12/28/2017 Increasing bilateral airspace consoli dation. Stable cardiomediastinal contours. Right PICC line terminates in the right atrium. Signed: Mio Fink Verified Date/Time: 12/30/2017 04:44:59 Reading Location: [address] Consult Reading Room CBC W/PLT COUNT & AUTO [id number] 03:53:00 Test Item Value Reference Range Interpretation [...] (BEAKER) (test code = 2801) BASIC METABOLIC [id number] 03:35:00 Test Item Value Reference Range Interpretation [...] S NOT APPLICABLE FOR DIALYSIS PATIEN TS. [id number] 03:34:00 Test Item Value Reference Range Interpretation Comments MAGNESIUM (BEAKER) (test code = 2.5 mg/dL 1.6-2.6 627) HEPATIC FUNCTION [id number] 03:34:00 Test Item Value Reference Range Interpretation [...] = 86 U/L 6-55 H 347) CALCIUM, [id number] 03:24:00 Test Item Value Reference Range Interpretation Comments CALCIUM IONIZED (BEAKER) (test 1.04 mmol/L 1.12-1.27 L code = 698) PH, BLOOD (BEAKER) (test code = 7.29 1810) BLOOD GAS, [id number] 03:24:00 Test Item Value Reference Range Interpretation [...] code = 1819) 85.0 % BLOOD GAS, [id number] 21:12:00 Test Item Value Reference Range Interpretation [...] (test code = 1819) 85.0 % POCT-GLUCOSE [id number] 21:11:00 Test Item Value Reference Range Interpretation Comments POC-GLUCOSE METER 117 mg/dL 70-110 H TESTED AT [place] [address] (BEAKER) (test code = [place] 1538) [address] LACTIC ACID, ARTERIAL, WHOLE [id number] 20:27:00 Test Item Value Reference Range Interpretation Comments LACTATE BLOOD ARTERIAL (2) 1.0 mmol/L 0.5-2.2 (BEAKER) (test code = 2874) Effective 11/02/2015: Units/Reference Range ChangeNew: 0.5-2.2 mmol/L Previous: 5-20 mg/dLBLOOD GAS, [id number] 20:09:00 Test Item Value Reference Range Interpretation [...] C (test code = 1818) COMPREHENSIVE METABOLIC [id number] 18:59:00 Test Item Value Reference Range Interpretation [...] GFR I S NOT APPLICABLE FOR DIALYSIS PATIIRIS TS. [id number] 18:35:00 Test Item Value Reference Range Interpretation Comments MAGNESIUM (BEAKER) (test code = 2.3 mg/dL 1.6-2.6 627) BLOOD GAS, [id number] 18:00:00 Test Item Value Reference Range Interpretation [...] C (test code = 1818) OXYGEN SATURATION, [id number] 18:00:00 Test Item Value Reference Range Interpretation Comments O2 SATURATION (MEASURED) (BEAKER) 89.9 % (test code = 1455) CALCIUM, [id number] 18:00:00 Test Item Value Reference Range Interpretation Comments CALCIUM IONIZED (BEAKER) (test 1.03 mmol/L 1.12-1.27 L code = 698) PH, BLOOD (BEAKER) (test code = 7.35 1810) CBC W/PLT COUNT & AUTO [id number] 15:15:00 Test Item Value Reference Range Interpretation [...] PERCENT (BEAKER) (test code = 2801) POCT-GLUCOSE [id number] 12:54:00 Test Item Value Reference Range Interpretation Comments POC-GLUCOSE METER 111 mg/dL 70-110 H TESTED AT [facility] 67[address] (BEAKER) (test code = [place] 1538) [address] SPUTUM CULTURE + GRAM [id number] 10:56:00 Test Item Value Reference Range Interpretation Comments CULTURE (BEAKER) 3+ Normal respiratory (test code = 1095) tre present GRAM STAIN RESULT 3+ White blood cells (BEAKER) (test code = seen 1123) GRAM STAIN RESULT 0-5 epithelial cells (BEAKER) (test code = 47523) GRAM STAIN RESULT <1+ gram negative rods (BEAKER) (test code = 19909) GRAM STAIN RESULT <1+ gram positive rods (BEAKER) (test code = 624024) GRAM STAIN RESULT <1+ gram positive cocci (BEAKER) (test code = in clusters 640297) TACROLIMUS [id number] 10:34:00 Test Item Value Reference Range Interpretation Comments TACROLIMUS BLOOD (BEAKER) (test 9.2 ng/mL 10.0-20.0 L code = 657) BLOOD GAS, [id number] 08:45:00 Test Item Value Reference Range Interpretation [...] (test code = 1819) 40.0 % CALCIUM, [id number] 07:52:00 Test Item Value Reference Range Interpretation Comments CALCIUM IONIZED (BEAKER) (test 1.01 mmol/L 1.12-1.27 L code = 698) PH, BLOOD (BEAKER) (test code = 7.41 1810) Check serum Ionized Calcium level after 4 hours after IV Calcium replacement. BASIC METABOLIC [id number] 06:54:00 Test Item Value Reference Range Interpretation [...] APPLICABLE FOR DIALYSIS PATIEN TS. HEPATIC FUNCTION [id number] 06:14:00 Test Item Value Reference Range Interpretation [...] 96 U/L 6-55 H 347) VANCOMYCIN LEVEL, [id number] 06:12:00 Test Item Value Reference Range Interpretation Comments VANCOMYCIN TROUGH (BEAKER) (test 17.7 ug/mL 10.0-20.0 code = 522) HEPATITIS PANEL, [id number] 01:10:00 Test Item Value Reference Range Interpretation Comments HEPATITIS A IGM ANTIBODY (BEAKER) Nonreactive Nonreactive (test code = 498) HEPATITIS B CORE IGM ANTIBODY Nonreactive Nonreactive (BEAKER) (test code = 645) HEPATITIS C ANTIBODY (BEAKER) Nonreactive Nonreactive (test code = 367) HEPATITIS B SURFACE ANTIGEN (2) Nonreactive Nonreactive (BEAKER) (test code = 2585) BLOOD GAS, [id number] 23:35:00 Test Item Value Reference Range Interpretation [...] % 30 minutes after sodium bicarbonate administration.CALCIUM, [id number] 20:10:00 Test Item Value Reference Range Interpretation Comments CALCIUM IONIZED (BEAKER) (test 1.02 mmol/L 1.12-1.27 L code = 698) PH, BLOOD (BEAKER) (test code = 7.38 1810) BLOOD GAS, [id number] 20:09:00 Test Item Value Reference Range Interpretation [...] (BEAKER) (test code = 1819) 40.0 % [id number] 17:27:00 Test Item Value Reference Range Interpretation Comments HAPTOGLOBIN (BEAKER) (test code = 86 mg/dL 14-258 366) CREATININE, RANDOM [id number] 16:05:00 Test Item Value Reference Range Interpretation Comments CREATININE URINE (BEAKER) (test 53.1 mg/dL code = 375) Reference Range: No NormalsPOTASSIUM, RANDOM [id number] 16:05:00 Test Item Value Reference Range Interpretation Comments POTASSIUM URINE (BEAKER) (test 48.4 meq/L code = 195) Reference Range: No NormalsPROTEIN, RANDOM [id number] 16:05:00 Test Item Value Reference Range Interpretation Comments PROTEIN, URINE (BEAKER) (test code = 9 mg/dL 0-14 1569) SODIUM, RANDOM [id number] 16:05:00 Test Item Value Reference Range Interpretation Comments SODIUM URINE (BEAKER) (test code = 64 meq/L 243) Reference Range: No NormalsURINALYSIS W/ [id number] 16:02:00 Test Item Value Reference Range Interpretation [...] 1574) SOURCE(BEAKER) (test code = Urine, Voided 5729) CREATINE KINASE (CK)2017-12-28 15:27:00 Test Item Value Reference Range Interpretation Comments CREATINE KINASE TOTAL (BEAKER) (test 133 U/L 29-200 code = 380) [id number] 15:26:00 Test Item Value Reference Range Interpretation Comments POTASSIUM (BEAKER) (test code = 4.6 meq/L 3.5-5.1 379) [id number] 15:26:00 Test Item Value Reference Range Interpretation Comments MAGNESIUM (BEAKER) (test code = 2.2 mg/dL 1.6-2.6 627) [id number] 15:26:00 Test Item Value Reference Range Interpretation Comments PHOSPHORUS (BEAKER) (test code = 4.1 mg/dL 2.3-4.7 604) CALCIUM, [id number] 14:59:00 Test Item Value Reference Range Interpretation Comments CALCIUM IONIZED (BEAKER) (test 0.98 mmol/L 1.12-1.27 L code = 698) PH, BLOOD (BEAKER) (test code = 7.42 1810) [id number] 12:31:00 Test Item Value Reference Range Interpretation Comments PROCALCITONIN (BEAKER) (test code = > ng/mL <0.05 3036) SEPSIS RISK (ng/mL)Low: 0.05-0.50Intermediate: 0.51-2.00High: >=2.01IMMUNOGLOBULIN G (IGG)2017-12-28 12:15:00 Test Item Value Reference Range Interpretation Comments IMMUNOGLOBULIN G (IGG) (BEAKER) (test < mg/dL 540-1822 L code = 427) CBC W/PLT COUNT & AUTO [id number] 11:41:00 Test Item Value Reference Range Interpretation [...] MDReport Verified Date/Time: 12/28/2017 10:56:56 Reading Location: [facility] C0X Ortho Consult Reading Room HEPATIC FUNCTION [id number] 10:02:00 Test Item Value Reference Range Interpretation [...] 125-220 H code = 635) HEPATIC FUNCTION [id number] 09:38:00 Test Item Value Reference Range Interpretation [...] = 109 U/L 6-55 H 347) TACROLIMUS [id number] 08:50:00 Test Item Value Reference Range Interpretation Comments TACROLIMUS BLOOD (BEAKER) (test 11.2 ng/mL 10.0-20.0 code = 657) [id number] 08:44:00 Test Item Value Reference Range Interpretation Comments CORTISOL, TOTAL (BEAKER) (test 16.7 ug/dL 3.7-19.4 code = 2755) BASIC METABOLIC [id number] 07:08:00 Test Item Value Reference Range Interpretation [...] APPLICABLE FOR DIALYSIS PATIEN TS. VANCOMYCIN LEVEL, [id number] 06:47:00 Test Item Value Reference Range Interpretation Comments VANCOMYCIN RANDOM (BEAKER) (test 13.8 ug/mL code = 523) Reference Range: No [id number] 06:23:00 Test Item Value Reference Range Interpretation Comments MAGNESIUM (BEAKER) (test code = 1.7 mg/dL 1.6-2.6 627) BLOOD GAS, [id number] 06:07:00 Test Item Value Reference Range Interpretation [...] 1819) 100.0 % LACTIC ACID, ARTERIAL, WHOLE [id number] 05:20:00 Test Item Value Reference Range Interpretation Comments LACTATE BLOOD ARTERIAL (2) 3.1 mmol/L 0.5-2.2 H (BEAKER) (test code = 2874) Effective 11/02/2015: Units/Reference Range ChangeNew: 0.5-2.2 mmol/L Previous: 5-20 mg/dLLACTIC ACID, VENOUS, WHOLE [id number] 23:10:00 Test Item Value Reference Range Interpretation Comments LACTATE BLOOD VENOUS (2) (BEAKER) 4.1 mmol/L 0.5-2.2 H (test code = 2872) Effective 11/02/2015: Units/Reference Range ChangeNew: 0.5-2.2 mmol/L Previous: 5-20 mg/[id number] 23:09:00 Test Item Value Reference Range Interpretation Comments POTASSIUM (BEAKER) (test code = 5.0 meq/L 3.5-5.1 379) BLOOD GAS, [id number] 22:54:00 Test Item Value Reference Range Interpretation [...] C (test code = 1818) U/S, ABDOMINAL, [id number] 22:00:00Abdomen limited area? Add comment if clarification [...] Fink Verified Date/Time: 12/27/2017 22:00:32 Reading Location: [address] Reading Room RAD, CHEST, 1 VIEW, NON [id number] 19:03:00Reason for exam:->eval pulmonary congestion/dyspneaShould this be [...] MDReport Verified Date/Time: 12/27/2017 19:03:45 Reading Location: [address] Reading Room BLOOD GAS, [id number] 18:29:00 Test Item Value Reference Range Interpretation [...] 21.0 % RAD, CHEST, 1 VIEW, NON [id number] 15:36:00Reason for exam:->RUE picc line placement Should [...] MDReport Verified Date/Time: 12/27/2017 15:36:05 Reading Location: [address] Consult Reading Room BASI METABOLIC [id number] 14:47:00 Test Item Value Reference Range Interpretation [...] DIALYSIS PATIEN TS. LACTIC ACID, ARTERIAL, WHOLE [id number] 14:33:00 Test Item Value Reference Range Interpretation Comments LACTATE BLOOD ARTERIAL (2) 4.2 mmol/L 0.5-2.2 H (BEAKER) (test code = 2874) Effective 11/02/2015: Units/Reference Range ChangeNew: 0.5-2.2 mmol/L Previous: 5-20 mg/dLBLOOD GAS, [id number] 14:11:00 Test Item Value Reference Range Interpretation [...] (test code = 1819) 21.0 % PROTHROMBIN [id number] 11:17:00 Test Item Value Reference Range Interpretation Comments PROTIME (BEAKER) (test code = 23.8 seconds 11.7-14.7 H 759) INR (BEAKER) (test code = 370) 2.1 <=5.9 RECOMMENDED COUMADIN/WARFARIN INR THERAPY RANGESSTANDARD DOSE: 2.0 - 3.0 Includes: PROPHYLAXIS forvenous thrombosis, systemic embolization; TREATMENT for venous thrombosis and/or pulmonary embolus.HIGH RISK: Target INR is 2.5-3.5 for patients with mechanical heart valves.[id number] 11:17:00 Test Item Value Reference Range Interpretation Comments FIBRINOGEN LEVEL (BEAKER) (test 337 mg/dl 225-434 code = 658) CBC W/PLT COUNT & AUTO [id number] 11:13:00 Test Item Value Reference Range Interpretation [...] Received comment: User comments: Slide comments:RESPIRATORY PANEL [id number] 10:38:00 Test Item Value Reference Range Interpretation Comments HUMAN METAPNEUMOVIRUS Not detected Not detected, (BEAKER) (test code = Inconclusive 5843) RHINOVIRUS (BEAKER) (test Not detected Not detected, code = 0214) Inconclusive INFLUENZA A (BEAKER) (test Not detected [...] Not detected, (BEAKER) (test code = Inconclusive 269) PARAINFLUENZA VIRUS 3 Not detected Not detected, [...] (BEAKER) (test code = Inconclusive 3207) TACROLIMUS [id number] 08:44:00 Test Item Value Reference Range Interpretation Comments TACROLIMUS BLOOD (BEAKER) (test 12.2 ng/mL 10.0-20.0 code = 657) [id number] 08:35:00 Test Item Value Reference Range Interpretation Comments MAGNESIUM (BEAKER) (test code = 1.7 mg/dL 1.6-2.6 627) CALCIUM, [id number] 06:59:00 Test Item Value Reference Range Interpretation Comments CALCIUM IONIZED (BEAKER) (test 1.05 mmol/L 1.12-1.27 L code = 698) PH, BLOOD (BEAKER) (test code = 7.35 1810) Check serum Ionized Calcium level after 4 hours after IV Calcium replacement. BASIC METABOLIC [id number] 06:02:00 Test Item Value Reference Range Interpretation [...] DIALYSIS PATIEN TS. LACTIC ACID, VENOUS, WHOLE [id number] 05:50:00 Test Item Value Reference Range Interpretation Comments LACTATE BLOOD VENOUS (2) (BEAKER) 5.9 mmol/L 0.5-2.2 H (test code = 2872) Effective 11/02/2015: Units/Reference Range ChangeNew: 0.5-2.2 mmol/L Previous: 5-20 mg/dLBLOOD GAS, [id number] 05:29:00 Test Item Value Reference Range Interpretation [...] code = 1819) 21.0 % STREP PNEUMONIAE [id number] 04:39:00 Test Item Value Reference Range Interpretation [...] the detection limit of the test.LEGIONELLA ANTIGEN, [id number] 04:39:00 Test Item Value Reference Range Interpretation Comments L. PNEUMOPHILA Negative - see Negative fo r L. SEROGP 1 UR AG comment pneumophila (BEAKER) (test code serogrou p 1 antigen, = 1156) suggesting no r ecent or current infe ction with this serog roup. Legionellosis c annot be ruled out si nce other serogroup s and species may cau se disease. [id number] 02:38:00 Test Item Value Reference Range Interpretation Comments POTASSIUM (BEAKER) (test code = 5.2 meq/L 3.5-5.1 H 379) LACTIC ACID, ARTERIAL, WHOLE [id number] 02:38:00 Test Item Value Reference Range Interpretation Comments LACTATE BLOOD 6.1 mmol/L 0.5-2.2 H Specimen sligh tly ARTERIAL (2) (BEAKER) hemoly zed (test code = 2874) Effective 11/02/2015: Units/Reference Range ChangeNew: 0.5-2.2 mmol/L Previous: 5-20 mg/dLBLOOD GAS, [id number] 02:17:00 Test Item Value Reference Range Interpretation [...] code = 1819) 100.0 % BASIC METABOLIC [id number] 01:24:00 Test Item Value Reference Range Interpretation [...] GFR I S NOT APPLICABLE FOR DIALYSIS PATIIRIS TS. [id number] 01:12:00 Test Item Value Reference Range Interpretation Comments MAGNESIUM (BEAKER) (test code = 1.2 mg/dL 1.6-2.6 L 627) LACTIC ACID, VENOUS, WHOLE [id number] 01:04:00 Test Item Value Reference Range Interpretation Comments LACTATE BLOOD VENOUS (2) (BEAKER) 6.2 mmol/L 0.5-2.2 H (test code = 2872) Effective 11/02/2015: Units/Reference Range ChangeNew: 0.5-2.2 mmol/L Previous: 5-20 mg/dLCALCIUM, [id number] 00:32:00 Test Item Value Reference Range Interpretation Comments CALCIUM IONIZED (BEAKER) (test 1.05 mmol/L 1.12-1.27 L code = 698) PH, BLOOD (BEAKER) (test code = 7.22 1810) BLOOD GAS, [id number] 00:31:00 Test Item Value Reference Range Interpretation [...] code = 1819) 21.0 % HEMOGLOBIN AND [id number] 00:28:00 Test Item Value Reference Range Interpretation [...] PATIEN TS. CBC W/PLT COUNT & AUTO [id number] 22:18:00 Test Item Value Reference Range Interpretation [...] code = 413) LACTIC ACID, VENOUS, WHOLE [id number] 22:08:00 Test Item Value Reference Range Interpretation Comments LACTATE BLOOD VENOUS (2) (BEAKER) 9.1 mmol/L 0.5-2.2 H (test code = 2872) Effective 11/02/2015: Units/Reference Range ChangeNew: 0.5-2.2 mmol/L Previous: 5-20 mg/dLRAD, CHEST, 1 VIEW, NON [id number] 21:46:00Reason for exam:->SOBFINAL REPORT RAD, CHEST, 1 VIEW, NON DEPT INDICATION: SOB COMPARISON: Prior day's exam FINDINGS: Portable frontal view of the chest. IMPRESSION: Support Lines: None. Lungs andpleura: Bibasilar subsegmental atelectasis. Right basilar consolidation, concerning for developing pneumonia. Trace bilateral effusions. No pneumothorax.Heart and mediastinum: Stable contours. Stable surgical changes.Additional findings: None. Signed: JR Matthias, Magdaleno BIRDeport Verified Date/Time: 12/26/2017 21:46:39 Reading Location: [address] Reading Room TACROLIMUS [id number] 15:12:00 Test Item Value Reference Range Interpretation Comments TACROLIMUS BLOOD (BEAKER) (test 11.5 ng/mL 10.0-20.0 code = 657) [id number] 11:00:00 Test Item Value Reference Range Interpretation Comments MAGNESIUM (BEAKER) (test code = 1.9 mg/dL 1.6-2.6 627) BASIC METABOLIC [id number] 11:00:00 Test Item Value Reference Range Interpretation [...] PATIEN TS. CBC W/PLT COUNT & AUTO [id number] 10:42:00 Test Item Value Reference Range Interpretation [...] PERCENT (BEAKER) (test code = 2801) BLOOD [id number] 13:27:00 Test Item Value Reference Range Interpretation Comments CULTURE (BEAKER) (test No growth in 5 days code = 1095) SPUTUM CULTURE + GRAM [id number] 13:39:00 Test Item Value Reference Range Interpretation Comments CULTURE (BEAKER) 2+ Normal respiratory (test code = 1095) tre present GRAM STAIN RESULT 3+ WBCs (BEAKER) (test code = 1123) GRAM STAIN RESULT 0-5 epithelial cells (BEAKER) (test code = 11327) GRAM STAIN RESULT No organisms seen (BEAKER) (test code = 50253) TACROLIMUS [id number] 09:48:00 Test Item Value Reference Range Interpretation Comments TACROLIMUS BLOOD (BEAKER) (test 7.3 ng/mL 10.0-20.0 L code = 657) BASIC METABOLIC [id number] 06:43:00 Test Item Value Reference Range Interpretation [...] PATIEN TS. CBC W/PLT COUNT & AUTO [id number] 06:41:00 Test Item Value Reference Range Interpretation [...] L 0.00-0.20 (test code = 417) 0.00TACROLIMUS [id number] 12:16:00 Test Item Value Reference Range Interpretation Comments TACROLIMUS BLOOD (BEAKER) (test 7.3 ng/mL 10.0-20.0 L code = 657) CBC W/PLT COUNT & AUTO [id number] 07:26:00 Test Item Value Reference Range Interpretation [...] 0.00-0.20 (test code = 417) 0.00BASIC METABOLIC [id number] 06:50:00 Test Item Value Reference Range Interpretation [...] DIALYSIS PATIEN TS. SPUTUM CULTURE + GRAM [id number] 15:49:00 Test Item Value Reference Range Interpretation Comments CULTURE (BEAKER) Oropharyngeal (test code = 1095) contamination, specimen rejected. Recollect requested. GRAM STAIN RESULT 3+ White blood cells seen (BEAKER) (test code = 1123) GRAM STAIN RESULT >25 epithelial cells (BEAKER) (test code = 85344) GRAM STAIN RESULT <1+ gram negative rods (BEAKER) (test code = 77805) TACROLIMUS [id number] 13:39:00 Test Item Value Reference Range Interpretation Comments TACROLIMUS BLOOD (BEAKER) (test 6.1 ng/mL 10.0-20.0 L code = 657) RESPIRATORY PANEL [id number] 13:06:00 Test Item Value Reference Range Interpretation Comments HUMAN METAPNEUMOVIRUS Not detected Not detected, (BEAKER) (test code = Inconclusive 9198) RHINOVIRUS (BEAKER) (test Not detected Not detected, code = 2902) Inconclusive INFLUENZA A (BEAKER) (test Not detected [...] (BEAKER) (test code = Inconclusive 3207) TACROLIMUS [id number] 11:17:00 Test Item Value Reference Range Interpretation Comments TACROLIMUS BLOOD (BEAKER) (test 5.9 ng/mL 10.0-20.0 L code = 657) BASIC METABOLIC [id number] 07:20:00 Test Item Value Reference Range Interpretation [...] PATIEN TS. CBC W/PLT COUNT & AUTO [id number] 07:16:00 Test Item Value Reference Range Interpretation [...] = 417) 0.00CREATINE KINASE (CK), TOTAL AND [id number] 18:57:00 Test Item Value Reference Range Interpretation Comments CREATINE KINASE TOTAL (BEAKER) 35 U/L 29-200 (test code = 380) CREATINE KINASE-MB (BEAKER) (test 0.9 ng/mL 0.0-6.6 code = 750) CREATINE KINASE-MB INDEX (BEAKER) 2.6 % (test code = 395) Effective 05/18/2014: CK-MB Reference Range ChangeNew: 0.0-6.6 Previous: 0.0-4.9CK-MB Reference Range:<6.7 Normal6.7-10.0 Borderline>10.0 AbnormalTROPONIN [id number] 18:57:00 Test Item Value Reference Range Interpretation [...] 0-100 (test code = 700) BASIC METABOLIC [id number] 18:50:00 Test Item Value Reference Range Interpretation [...] S NOT APPLICABLE FOR DIALYSIS PATIEN TS. [id number] 18:50:00 Test Item Value Reference Range Interpretation [...] code = 417) 0.00LACTIC ACID, VENOUS, WHOLE [id number] 18:46:00 Test Item Value Reference Range Interpretation Comments LACTATE BLOOD VENOUS 1.7 mmol/L 0.5-2.2 Specime n moderately (2) (BEAKER) (test hemolyzed code = 2872) Effective 11/02/2015: Units/Reference Range ChangeNew: 0.5-2.2 mmol/L Previous: 5-20 mg/dL
[2021-10-20 00:44] VITALS: BP 192/71; TEMP 98.4; O2SAT 100
== END 2021-10-20 00:38 | disposition home or self-care (01) ==
LOC: ER 23:56
DX: K02.9 Dental caries, unspecified (principal); S02.5XXA Fracture of tooth (traumatic), initial encounter for closed fracture; N19 Unspecified kidney failure; Z85.828 Personal history of other malignant neoplasm of skin
CPT/HCPCS: 96372; 99283

== ENCOUNTER 2022-07-29 12:23 | Emergency (ER) | payer OTHER ==
--- OUTSIDE RECORDS SUMMARY | 2022-07-29 12:51 | XMS REPORT | Continuity of Care Document ---
:1955 Author Organization [facility] t Address [address] [place] [address] Care Team Providers Name Role Phone Pcp, Patient Does Not Have A Primary Care Physician [phone] TEODORA HERNANDEZ Attending Clinician Unavailable Melvin Barrett Attending Clinician Unavailable Ann Hough RN Attending Clinician SYLVESTER FELICIANO Attending Clinician Unavailable Jodie ARGUETA, Sylvester Attending Clinician Diane Eastman MD Attending Clinician Lucia ARGUETA, Roman Johnston Attending Clinician [phone] Daniel HERCULES, July Attending Clinician Sandra Ackerman RN Attending Clinician Unavailable Minoo ARGUETA, July Sol Attending Clinician Ginny ARGUETA, Pb Guerra Attending Clinician Chandra Grey MD Attending Clinician Cyrus Brannon MD Attending Clinician [phone] Christiano See MD Attending Clinician CYRUS BRANNON Attending Clinician Unavailable ROMAN MYERS Attending Clinician Unavailable Jason BARLOW, Brook Peguero Attending Clinician PHYLLIS POOLE Attending Clinician Unavailable OSIRIS DIAZ Attending Clinician Unavailable Provider, [facility] Attending Clinician Unavailable Evita Farrell RN Attending Clinician Unavailable RUPINDER STREETER Attending Clinician Unavailable JULY HENNESSY Attending Clinician Unavailable PB GROSS Attending Clinician Unavailable JERILYN HOLDEN Attending Clinician Unavailable MARIZOL FAITH Attending Clinician Unavailable RANDY ONOFRE Attending Clinician Unavailable BEVERLY DURON Attending Clinician Unavailable HILTON DECKER Attending Clinician Unavailable HINA FRIAS Attending Clinician Unavailable CHELSY WEST Attending Clinician Unavailable DOM SMITH Attending Clinician Unavailable JASSON RODNEY Attending Clinician Unavailable AIDEE GALLARDO Attending Clinician Unavailable CARINA MÁRQUEZ Attending Clinician Unavailable Rosi Galvan MD Attending Clinician PETER MERCADO Attending Clinician Unavailable TANA ANDREWS Attending Clinician Unavailable DAVE CHANEY Attending Clinician Unavailable AIMEE HICKS Attending Clinician Unavailable RUBEN GODINEZ Attending Clinician Unavailable CHRISTIANO SEE Attending Clinician Unavailable AARON GREEN Attending Clinician Unavailable PRATEEK ALDANA Attending Clinician Unavailable ROMAN MYERS Attending Clinician Unavailable FROY CONTRERAS Attending Clinician Unavailable TED BAKER Attending Clinician Unavailable ANALI LYON Attending Clinician Unavailable QIAN JAIN Attending Clinician Unavailable ROBERT URIAS Attending Clinician Unavailable DENILSON LOVETT Attending Clinician Unavailable FRANKLIN SALDIVAR Attending Clinician Unavailable DELIA MARTINEZ Attending Clinician Unavailable CHIOMA HERRERA Attending Clinician Unavailable DIANE EASTMAN Attending Clinician Unavailable JORDI SERRANO Attending Clinician Unavailable Jordi Serrano MD Attending Clinician [phone] DENILSON RAZA Attending Clinician Unavailable FABRICE FERRER Attending Clinician Unavailable TEODORA HERNANDEZ Admitting Clinician Unavailable TOOTIE MOLINA Admitting Clinician Unavailable MELLISSA MARTÍNEZ Admitting Clinician Unavailable SARAH BATISTA Admitting Clinician Unavailable QIAN JAIN Admitting Clinician Unavailable DAVE CHANEY Admitting Clinician Unavailable LIANA CORONEL V. Admitting Clinician Unavailable CHRISTIANO SEE Admitting Clinician Unavailable TON VICTORIA Admitting Clinician Unavailable DIANE EASTMAN Admitting Clinician Unavailable JORDI SRERANO Admitting Clinician Unavailable ROBERT URIAS Admitting Clinician Unavailable FRANKLIN SALDIVAR Admitting Clinician Unavailable Payers Payer Name Policy Type Policy Number Effective Date Expiration Date Cassandra gould [facility] [id number] 2018 PLAN 00:00:00 CDC REVIEW [id number] 2019 00:00:00 MEDICARE PART A & [id number] 2022 B 00:00:00 [facility] [id number] 2020 PLAN SSI 00:00:00 NORM CARE - [id number] GENERIC - NORM CARE [facility]-MEDICAID - [id number] 2017 2018 MEDICAID 00:00:00 00:00:00 AMBETTER - [id number] [facility] [id number] HMO-MARKETPLACE - BCBS [id number] [id number] GENERIC PPO - [id number] GENERIC PAYOR [employer] NON-UNITED [id number] 2020 STAR 00:00:00 Problems Condition Condition Condition Status Onset Resolution Last Treating Co mments Source Name Details Category Date Date Treatment Clinician Date Lesion of Lesion of Disease Active [facility] pancreas pancreas 8-16 [facility] 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 Added automatic ally from request for surgery [id number] Anemia Anemia Disease Active [facility]12 [facility] Acute Acute Disease Active [facility] encephalop encephalop 3-28 [facility] athy athy 00:00: Medical 00 Center Acute Acute Disease Active [facility] metabolic metabolic 2-01 [facility] encephalop encephalop 00:00: Me dical athy athy 00 Center Acute Acute Disease Active [facility] kidney kidney 2-01 [facility] injury injury 00:00: Medical superimpos superimpos 00 Ce nter ed on CKD ed on CKD Altered Altered Disease Active [facility] mental mental 1-03 [facility] status, status, 00:00: Medical unspecifie unspecifie 00 Ce nter d altered d altered mental mental status status type type Pancytopen Pancytopen Disease Active 2019-[address] ia ia 2-24 [facility] 00:00: Medical 00 [place] Stage 3b Stage 3b Disease Active 2019-07 [facility] chronic chronic [facility] kidney kidney 00:00: Medical disease disease 00 Center SBP SBP Disease Active 2019-[address] [facility] (spontaneo (spontaneo 2-21 [facility] us us 00:00: Medical bacterial bacterial 00 Cent er peritoniti peritoniti s) s) Hepatic Hepatic Disease Active 2019-[address] [facility] encephalop encephalop 2-18 [facility] athy athy 00:00: Medical 00 [place] Varices of Varices of Disease Active 2019-[address] esophagus esophagus 2-18 [facility] determined determined 00:00: Me dical by by 00 Center endoscopy endoscopy CKD CKD Disease Active 2019-07 [facility] (chronic (chronic 2-07 [facility] kidney kidney 00:00: of disease) disease) 00 Medici n stage 5, stage 5, e GFR less GFR less than 15 than 15 ml/min ml/min Cirrhosis Cirrhosis Disease Active 2019-07 [facility] of liver of liver 2-07 Colleg e with with 00:00: of ascites ascites 00 Medicin e Lung Lung Disease Active 2019-07 [facility] transplant transplant 2-07 Co llege recipient recipient 00:00: of 00 Medicin e Pre-transp Pre-transp Disease Active 2019-[address] lant lant 0-07 [facility] evaluation evaluation 00:00: t & Plan: Medical for liver for liver 00 [facility] enter transplant transplant g of this note might be different from the original. He will be considere d a high risk candidate due to his social history s/p lung transplan t. He will require routine imaging/t esting and official review at [facility] for official candidacy . CKD CKD Disease Active 2019-[address] [facility] [address] (chronic (chronic 0-07 Assessmen [facility] es kidney kidney 00:00: t & Plan: Medical disease) disease) [address] [place] [address] g of this note might be different from the original. He has CKD and does not currently require dialysis but has required it in the past. He will continue follow up with nephrolog y. Impaired Impaired Disease Active 2019-07 [facility] ambulation ambulation 0-07 [facility] 00:00: t & Plan: Medical [address] [place] [address] g of this note might be different from the original. He will benefit from home physical therapy. He states that he has issues with his ambulatio n while ambulatin g at home. Drug use Drug use Disease Active 2019-07 [facility] t 0-07 [facility] 00:00: t & Plan: Medical [address] [place] [address] g of this note might be different from the original. He states that he consumes "marijuan a gummies" for anxiety. He was instructe d to abstain from consuming marijuana containin g treats. Volume Volume Disease Active [facility] overload overload 8-25 [facility] 00:00: Medical [address] [place] [address] NOHEMI (acute NOHEMI (acute Disease Active [facility] kidney kidney 8-25 [facility] injury) injury) 00:00: Medical [address] [place] [address] Dyspnea Dyspnea Disease Active [facility] St and and 6-11 [facility] respirator respirator 00:00: Me dical y y 00 [place] abnormalit abnormalit y y Portal Portal Disease Active [facility] St hypertensi hypertensi 5-07 [facility] on on 00:00: t & Plan: Medical [address] [place] [address] g of this note might be different from the original. Portal hypertens ion with evidence by ascites (s/p TIPs), varices and splenomeg jackelyn. S/P TIPS S/P TIPS Disease Active [facility] S t (transjugu (transjugu 3-02 [facility] lar lar 00:00: Medical intrahepat intrahepat 00 Ce nter ic ic portosyste portosyste apoorva shunt) apoorva shunt) Scrotal Scrotal Disease Active [facility] swelling swelling 2-23 [facility] 00:[facility]: Medical 00 Center Esophageal Esophageal Disease Active [facility] ulcer ulcer 1-29 [facility] 00:00: Medical 00 [place] Sarcopenia Sarcopenia Disease Active 2018-[address] 1-07 [facility] 00:00: Medical 00 [place] Hypotensio Hypotensio Disease Active 2018-[address] n due to n due to 1-07 [facility] drugs drugs 00:00: Medical 00 Center Chest Chest Disease Active 2018-[address] [facility] discomfort discomfort 0-23 [facility] kes 00:00: Medical 00 Center Other Other Disease Active Last [facility] cirrhosis cirrhosis 6-07 Assessmen L humza of liver of liver 00:00: t & Plan: [facility] g of this note might be different from the original. His liver biopsy in August indicated fibrosis stage 4 of 4, consisten t with cirrhosis . Chronic Chronic Disease Active [facility] diarrhea diarrhea 6-07 [facility] 00:[facility]: Medical 00 Center Cancer Cancer Disease Active [facility] screening screening 6-07 [facility] 00:00: Medical 00 [place] Acute on Acute on Disease Active [facility] chronic chronic 6-30 [facility] respirator respirator 00:00: Me dical y failure y failure 00 Cent er with with hypoxemia hypoxemia Acute Acute Disease Active [facility] kidney kidney 6-30 [facility] injury injury 00:00: Medical (nontrauma (nontrauma 00 Ce nter tic) tic) Uremic Uremic Disease Active [facility] acidosis acidosis 6-30 [facility] 00:00: Medical 00 Center Lactic Lactic Disease Active [facility] acid acid 6-30 [facility] acidosis acidosis 00:00: Medica l 00 Center Metabolic Metabolic Disease Active [facility] acidosis acidosis 6-29 [facility] 00:[facility]: Medical 00 Center Acute Acute Disease Active [facility] urinary urinary 5-04 [facility] tract tract 00:00: Medical infection infection 00 Cent er URI (upper URI (upper Disease Active [facility] respirator respirator 5-03 [facility] kes y y 00:00: Medical infection) infection) 00 Ce nter Chronic Chronic Disease Active [facility] diarrhea diarrhea 7-15 Colleg e 00:00: 00 Medicin e Elevated Elevated Disease Active [facility] liver liver 6-23 [facility] enzymes enzymes 00:00: Medical 00 Center Ascites Ascites Disease Active [facility] 6[facility]23 [facility] 00:00: Medical 00 Center Pneumonia Pneumonia Disease Active [facility] 5[facility]06 [facility] 00:[facility]: Medical 00 Center Diarrhea Diarrhea Disease Active [facility] 2[facility]26 [facility] Medical Center Abdominal Abdominal Disease Active Overview: [facility] pain pain 8-30 [facility] 00:00: g of this Medical 00 note Center might be different from the original. Gastropare Gastropare Disease Active [facility] sis sis 8-30 [facility] 00:00: Medical 00 Center Immunosupp Immunosupp Disease Active [facility] ression ression 8-30 [facility] 00:[facility]: Medical 00 Center Double Double Disease Active Last [facility] Lung Lung 7 Assessmen [facility] Transplant Transplant 00:00: t & Plan: Medical [facility] g of this note might be different from the original. He required a double lung transplan t in 2012 secondary to CVID c/b extensive bronchiec tasis. He will continue follow up with pulmonary . Bronchiect Bronchiect Disease Active 2011-[address] asis asis 1-07 [facility] 00:[facility]: Medical 00 Center GERD GERD Disease Active 2011-[address] [facility] (gastroeso (gastroeso 07-07 V[facility] kes phageal phageal 00:00: Medical reflux reflux 00 Center disease) disease) CVID CVID Disease Active 2011-[address] [facility] (common (common 07-07 [facility] variable variable 00:00: Medica l immunodefi immunodefi 00 Ce nter ciency) ciency) COPD COPD Disease Active 2011-[address] [facility] [facility] (chronic (chronic 07-07 [facility] obstructiv obstructiv 00:00: Me dical e e 00 Center pulmonary pulmonary disease) disease) Anxiety Anxiety Disease Active 2011-07 [facility] 0-16 Assessmen College 00:00: t & Plan: of Formattin Medicin g [...] require daily dosing. Common Common Disease Active 1984- Last [facility] variable variable 4-23 Assessmen [facility]ge immunodefi immunodefi 00:00: t & Plan: of ciency ciency 00 Formattin Medicin g of this e note might be different from the original. IVIG infusions continue. Acute Acute Disease Active [facility] St respirator respirator Vicky kes y distress y distress [facility] Center Cardiac Cardiac Disease Active [facility] arrest arrest [facility] ATYPICAL ATYPICAL Disease Active [facility] r MYCOBACTER MYCOBACTER Co llege IAL IAL of INFECTION INFECTION Medi michaela e SINUSITIS, SINUSITIS, Disease Active [facility] of Medicin e Allergies, Adverse Reactions, Alerts Allergy Allergy Status Severity Reaction(s) Onset Inactive Treating Comm ents Source Name Type Date Date Clinician NO KNOWN Allergy Active [facility] ALLERGIE S NO KNOWN Drug Active Univers ALLERGIE Class ity of S [facility] Family History Family Member Diagnosis Comments Start Date Stop Date Source Natural brother Hypertension [facility] Natural father Cancer [facility] Natural mother Cancer [facility] Paternal aunt Cancer [facility] Social History Social Habit Start Date Stop Date Quantity Comments Source Exposure to 2022-07-03 2022-07-13 Not sure [facility] SARS-CoV-2 (event) 00:00:00 14:19:00 Alcohol intake 2022-01-16 2022-01-[address] [facility] 00:00:00 00:00:00 non-drinker of Medical Ce nter alcohol (finding) Cigarettes smoked 2012-06-16 2012-06-[address] [facility] Vickyjada current (pack per 00:00:00 00:00:00 Medical Center day) - Reported Cigarette 2012-06-16 2012-06-[address] [facility] pack-years 00:00:00 00:00:00 [facility] Tobacco use and 2012-06-16 2012-06-[address] [facility] St Vicky mackey exposure 00:00:00 00:00:00 Medical Center History of tobacco 2004-10-25 Cigarette Smoker [facility] use 00:00:00 of Medicine Sex Assigned At [address] [facility] St Vicky elias 00:00:00 00:00:00 Medical Center Smoking Status Start Date Stop Date Source Unknown if ever smoked [facility] Ex-smoker 2021-01-18 00:00:00 2021-01-18 00:00:00 [facility]ations Ordered Filled Start Stop Current Ordering Indication Dosage Frequency Signature Comments Components Source Medication Medication Date Date Medication? Clinician (SIG) Name Name ketoconazol Yes Seborrheic Q.5D Apply to Jhonatan ritchie (NIZORAL) 07-13 dermatitis affected Health 2 % topical 00:00: area 2 cream 00 times daily For rash on face triamcinolo Yes Lichen Q.5D Apply to [place] irineo 07-13 simplex affected Health (KENALOG) 00:00: chronicus area 2 0.1 % 00 times topical daily For cream spots on the legs - do not use on the face, underarms, or groin allopurinol 2021-07 Yes [id number] 100mg Take 1 Juan R (ZYLOPRIM) 07-28 Tablet by Deborah ege 100 MG 00:00: mouth of tablet 00 daily. Medicin Start e after finishing 7 days of colchicine Colchicine 2021-07- Yes [id number] .6mg Take 0.6 Juan R 0.6 MG CAPS 07-28 12-06 mg by Colleg e 00:00: 05:59 mouth of 00 :00 daily for Medicin 7 days. e propranolol 2021-07 Yes 10mg Take 10 mg [facility] (INDERAL) 07-21 by mouth Colleg e 10 MG 13:44: daily. of tablet 33 Medicin e Ergocalcife 2021-07 Yes [id number] Take [facility] or rol 07-21 50,000 College (ERGOCAL 13:44: Units by of OR) 33 mouth. Medicin e Multiple 2021-07 Yes 1{capsu Take 1 [facility] Vitamin 1-21 le} capsule by Harpreet ritchie (MULTIVITAM 13:44: mouth of IN ADULT 33 daily. Medicin OR) e folic acid 2021-07 Yes 1mg Take 1 mg [facility] (FOLVITE) 07-21 by mouth Deborah ege MG tablet 13:44: daily. of 33 Medicin e tacrolimus 2021-07- Yes .5mg Q.5D Take [address] [facility] (PROGRAF) 07-01 capsule [facility] 0.5 MG 00:00: 23:59 (0.5 mg Medical capsule 00 :00 total) by Center mouth 2 (two) times daily. tacrolimus 2021-07- Yes .5mg Q.5D Take [address] [facility] (PROGRAF) 07-01 capsule [facility] 0.5 MG 00:00: 23:59 (0.5 mg Medical capsule 00 :00 total) by Center mouth 2 (two) times daily. AZITHROmyci 2021-07 Yes 250mg Q.[id number] Take [address] [facility] n 0-31 [id number] tablet [facility] (ZITHROMAX) 00:00: 3W (250 mg Med ical 250 MG 00 total) by Center tablet mouth 3 (three) times a week I Take by mouth as directed.. AZITHROmyci 2021-07 Yes 250mg Q.[id number] Take [address] [facility] n 0-31 [id number] tablet [facility] (ZITHROMAX) 00:00: 3W (250 mg Med ical 250 MG 00 total) by Center tablet mouth 3 (three) times a week I Take by mouth as directed.. propranolol Yes 10mg Take 10 mg [facility] (INDERAL) 8-08 by mouth Colleg e 10 MG 13:03: daily. of tablet 39 Medicin e Ergocalcife Yes [id number] Take [facility] rol 8-08 50,000 College (ERGOCAL 13:03: Units by of OR) 39 mouth. Medicin e Multiple Yes 1{capsu Take 1 [facility] Vitamin 8-08 le} capsule by Harpreet ritchie (MULTIVITAM 13:03: mouth of IN ADULT 39 daily. Medicin OR) e folic acid Yes 1mg Take 1 mg [facility] (FOLVITE) 1 8-08 by mouth Deborah ege MG tablet 13:03: daily. of 39 Medicin e multivitami Yes 1{capsu QD Take [address] n capsule 7-19 le} capsule by Lev s 14:05: mouth Medical 17 daily. Center folic acid Yes 1mg QD Take [address] (FOLVITE) 1 7-19 by mouth Luke s MG tablet 14:05: daily. Medica 17 [place] multivitami Yes 1{capsu QD Take [address] n capsule 01-16 le} capsule by Luke s 14:05: mouth Medical 17 daily. [place] folic acid Yes 1mg QD Take [address] (FOLVITE) 1 - by mouth Luke s MG tablet 14:05: daily. Medica l 17 [place] hydrOXYzine Yes 25mg Take [address] [facility] (ATARAX) 25 -19 tablet (25 Vicky kes MG tablet 00:00: mg total) Med ical 00 by mouth 2 Center (two) times daily as needed for Itching. hydrOXYzine Yes 25mg Take [address] [facility] (ATARAX) 25 7- tablet (25 Vicky kes MG tablet 00:00: mg total) Med ical 00 by mouth 2 Center (two) times daily as needed for Itching. quetiapine 2021- No 25mg Take 25 mg Juan R (SEROQUEL) 01-16- by mouth Deborah ege 25 MG 00:00: 04:59 nightly. of tablet 00 :00 Medicin e QUEtiapine 2021- No 25mg QD Take [address] [facility] [facility] (SEROquel) 01-16-18 tablet (25 Vicky kes 25 MG 00:00: 23:59 mg total) Medica l tablet 00 :00 by mouth Center nightly for 30 days. QUEtiapine 2021- No 25mg QD Take [address] [facility] [facility] (SEROquel) 01-16-18 tablet (25 Vicky kes 25 MG 00:00: 23:59 mg total) Medica l tablet 00 :00 by mouth Center nightly for 30 days. furosemide Yes [id number] 40mg Take 1 [facility] (LASIX) 40 6-30 Tablet by Deborah ege MG tablet 00:00: mouth of 00 daily as Medicin needed for e Other (leg swelling). furosemide Yes [id number] 40mg Take 1 [facility] (LASIX) 40 6-30 Tablet by Deborah ege MG tablet 00:00: mouth of 00 daily as Medicin needed for e Other (leg swelling). traZODone 2021- No 50mg QD Take 1 [facility] (DESYREL) 12-01- tablet (50 Shanta es 50 MG 00:00: 23:59 mg total) Medica l tablet 00 :00 by mouth Center nightly for 30 days. traZODone 2021- No 50mg QD Take 1 [facility] (DESYREL) 12-01- tablet (50 Shanta es 50 MG 00:00: 23:59 mg total) Medica l tablet 00 :00 by mouth Center nightly for 30 days. predniSONE Yes S/P lung 4mg QD Take [address] (DELTASONE) 5-09 transplant tablets (4 [facility] 1 MG tablet 00:00: (HCC) mg total) Medical 00 by mouth Center daily. predniSONE Yes S/P lung 4mg QD Take [address] (DELTASONE) 5-09 transplant tablets (4 [facility] 1 MG tablet 00:00: (HCC) mg total) Medical 00 by mouth Center daily. tacrolimus 2021- No Take [address] [facility] (PROGRAF) 11-06 capsule [facility] 0.5 MG 00:00: 00:00 (0.5 mg Medical capsule 00 :00 total) by Center mouth daily AND 1 capsule (0.5 mg total) 3 (three) times a week at bedtime SAT/SAT/FR I. Dx Code Z94.2. tacrolimus 2021- No Take [address] [facility] (PROGRAF) 11-06 capsule [facility] 0.5 MG 00:00: 00:00 (0.5 mg Medical capsule 00 :00 total) by Center mouth daily AND 1 capsule (0.5 mg total) 3 (three) times a week at bedtime SAT/SAT/FR I. Dx Code Z94.2. Multiple Yes 1{capsu Take 1 [facility] Vitamin 2-07 le} capsule by Harpreet ritchie (MULTIVITAM 09:21: mouth of IN ADULT 05 daily. Medicin OR) e folic acid Yes 1mg Take 1 mg [facility] (FOLVITE) 1 2-07 by mouth Deborah ege MG tablet 09:21: daily. of 05 Medicin e propranolol Yes 10mg Take 10 mg [facility] (INDERAL) 2-07 by mouth Colleg e 10 MG 09:18: daily. of tablet 28 Medicin e Ergocalcife Yes [id number] Take [facility] or rol 2-07 50,000 College (ERGOCAL 09:18: Units by of OR) 28 mouth. Medicin e QUEtiapine 2020-07- No 25mg QD Take [address] [facility] (SEROqueL) 2-27 02-26 tablet (25 Vicky kes 25 MG 00:00: 23:59 mg total) Medica l tablet 00 :00 by mouth Center nightly for 61 days. QUEtiapine 2020-07 No 25mg QD Take [address] [facility] (SEROqueL) 2-27 02-26 tablet (25 Vicky kes 25 MG 00:00: 23:59 mg total) Medica l tablet 00 :00 by mouth Center nightly for 61 days. hydrOXYzine 2020-07 Yes Itching TAKE [address] (ATARAX) 10 2-13 TABLETS BY Vicky kes MG tablet 00:00: MOUTH Medical 00 EVERY Center NIGHT AT BEDTIME NEEDED FOR ITCHING FOR UP TO 30 DAYS hydrOXYzine 2020-07 Yes Itching TAKE [address] (ATARAX) 10 2-13 TABLETS BY Vicky kes MG tablet 00:00: MOUTH Medical 00 EVERY Center NIGHT AT BEDTIME NEEDED FOR ITCHING FOR UP TO 30 DAYS Ergocalcife 2020-07 Yes [id number] 1{capsu Take 1 Juan R rol 1.25 MG 2-06 le} capsule by Co llege ([id number] UT) 00:00: mouth of CAPS 00 every 7 Medicin days. e Ergocalcife 2020-07 Yes [id number] 1{capsu Take 1 [facility] rol 1.25 MG 2-06 le} capsule by Co llege ([id number] UT) 00:00: mouth of CAPS 00 every 7 Medicin days. e Ergocalcife 2020-07 Yes [id number] 1{capsu Take 1 [facility] rol 1.25 MG 2-06 le} capsule by Co llege ([id number] UT) 00:00: mouth of CAPS 00 every 7 Medicin days. e hydrOXYzine 2020-07- No Itching TAKE [address] [facility] (ATARAX) 10 1-11 12-13 TABLETS BY L ukes MG tablet 00:00: 00:00 MOUTH Medica l 00 :00 EVERY Center NIGHT AT BEDTIME NEEDED FOR ITCHING FOR UP TO 30 DAYS harjit 2020-07 Yes Pruritus Q.5D Apply to [place] ne 1-05 affected Health (KENALOG) 00:00: area 2 0.1 % 00 times ointment daily Do not apply on the face, groin or axilla Use sparingly, only during flares to affected areas of the legs. Do NOT use consistent ly for more than 2 weeks at a time. AZITHROmyci 2020-07- No 250mg Q.[id number] Take [address] [facility] n 0-06 - [id number] tablet [facility] (ZITHROMAX) 00:00: 00:00 3W (250 mg Me dical 250 MG 00 :00 total) by Center tablet mouth 3 (three) times a week SAT/ I Take by mouth as directed.. AZITHROmyci 2020-07 No 250mg Q.[id number] Take [address] [facility] n 0-06 04-30 [id number] tablet [facility] (ZITHROMAX) 00:00: 00:00 3W (250 mg Me dical 250 MG 00 :00 total) by Center tablet mouth 3 (three) times a week SAT/ I Take by mouth as directed.. albuterol 2020-07 No 2.5mg Take [address] [address] (PROVENTIL) 0- 10-06 (2.5 mg Luke s 2.5 mg /3 00:00: 23:59 total) by Me dical mL (0.083 00 :00 [facility] %) on every 6 nebulizer (six) solution hours as needed for Wheezing (congestio n). albuterol 2020-07- No 2.5mg Take [address] [facility] (PROVENTIL) 0-06 10-06 (2.5 mg Luke s 2.5 mg /3 00:00: 23:59 total) by Me dical mL (0.083 00 :[address] [facility] er %) on every 6 nebulizer (six) solution hours as needed for Wheezing (congestio n). tacrolimus 2021-1 2022- No .5mg QD Take [address] [facility] (PROGRAF) 0-06 05-09 [facility] 0.5 MG 00:00: 00:00 (0.5 mg Medical capsule 00 :00 total) by Center mouth daily Starting 02/26. tacrolimus 2020-07- No .5mg QD Take [address] [facility] (PROGRAF) 0-06 05-09 capsule [facility] 0.5 MG 00:00: 00:00 (0.5 mg Medical capsule 00 :00 total) by Center mouth daily Starting 02/26. traZODone 2020-07 No 50mg QD Take 1 [facility] (DESYREL) 0-06 12-06 tablet (50 [facility] es 50 MG 00:00: 23:59 mg total) Medica l tablet 00 :00 by mouth Center nightly for 61 days. folic acid Yes 1mg Take 1 mg [facility] (FOLVITE) 1 03-27 by mouth. [facility] mg tablet 14:14: 02 MULTIVITAMI Yes 1{capsu Take 1 H arris NS capsule 03-27 le} capsule by [facility] 14:14: mouth. 02 acetaminoph Yes Post-operat 1{tbl} Take 1 [place] en-codeine 9-17 alvaro pain tablet by [facility] (TYLENOL/CO 00:00: mouth DEINE #3) 00 every 6 300-30 mg hours as per tablet needed for Pain. 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 Oint 00 right cheek tacrolimus 2021- No .5mg Take [address] [facility] (PROGRAF) 5-14 05-09 capsule [facility] 0.5 MG 00:00: 00:00 (0.5 mg Medical capsule 00 :00 total) by Center mouth 3 (three) times a week at bedtime SAT/SAT/ I. tacrolimus 2021- No .5mg Take [address] [facility] (PROGRAF) 5-14 05-09 capsule [facility] 0.5 MG 00:00: 00:00 (0.5 mg Medical capsule 00 :00 total) by Center mouth 3 (three) times a week at bedtime MON/SAT/ I. propranolol 2020-0 Yes 10mg Take 10 mg [facility] (INDERAL) 19 by mouth Colleg e 10 MG 09:58: daily. of tablet 01 Medicin e Ergocalcife 2020-0 Yes [id number] Take [facility] 4-19 50,000 [facility] (ERGOCAL 09:58: Units by of OR) 01 mouth. Medicin e predniSONE 2020-0 Yes 4mg Take 4 mg [facility] (DELTASONE) 4-13 by mouth. [facility] 1 mg tablet 00:00: 00 predniSONE 2020-0 2022- No S/P lung 4mg QD Take [address] [facility] (DELTASONE) 4-13 05-09 transplant tablets (4 [facility] 1 MG tablet 00:00: 00:00 (HCC) mg total) Medical 00 :00 by mouth Center daily. predniSONE 2020-0 2022- No S/P lung 4mg QD Take [address] [facility] (DELTASONE) 4-13 05-09 transplant tablets (4 [facility] 1 MG tablet 00:00: 00:00 (HCC) mg total) Medical 00 :00 by mouth Center daily. calcitrioL 2020-0 Yes .25ug Take 0.25 H arris (ROCALTROL) 3-29 mcg by [facility] 0.25 mcg 00:00: mouth. capsule 00 calcitRIOL 2020-0 Yes 1565 .25ug Take 1 [...] Indication e s: Secondary Hyperparat hyroidism calcitRIOL Yes 1565 .25ug Take 1 [facility] (ROCALTROL) 3-29 capsule by Co llege 0.25 MCG 00:00: mouth of capsule 00 daily. Medicin Indication e s: Secondary Hyperparat hyroidism Ergocalcife Yes [id number] 1{capsu Take 1 [facility] rol 1.25 MG 2-08 le} capsule by [place] ([id number] UT) 00:00: mouth of CAPS 00 every 7 Medicin days. e potassium Yes 1 tablet [facility] is chloride 2 daily, and Healt h (KLOR-CON) 00:00: take an 20 mEq 00 additional extended tablet if release you are tablet using Lasix that day as well. No more refills through my office. potassium 2021- No [address] [facility] chloride SA 08-01 daily, and L humza (OKSANA SON 00:00: 00:00 take an Me dical -CON) 20 00 :00 additional Cente r MEQ tablet tablet if you are using Lasix that day as well. No more refills through my office. potassium 2021- No [address] [facility] chloride SA 08-01 daily, and L ukes ([place]-OK[place] ALEXANDER 00:00: 00:00 take an Me dical -CON) 20 00 :00 additional Cente r MEQ tablet tablet if you are using Lasix that day as well. No more refills through my office. propranolol Yes 10mg Take 10 mg [facility] (INDERAL) 1-26 by mouth Colleg e 10 MG 15:47: daily. of tablet 08 Medicin e Ergocalcife Yes [id number] Take [facility] 1-26 50,000 [facility] (ERGOCAL 15:47: Units by of OR) 08 mouth. 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 furosemide 2019-[address] [facility] (LASIX) 40 2-24 taking 1 [facility] MG tablet 00:00: tablet Medica l 00 daily as Center needed for fluid retention. furosemide 2019-[address] [facility] (LASIX) 40 2-24 taking 1 [facility] MG tablet 00:00: tablet Medica l 00 daily as Center needed for fluid retention. propranolol 2019-07 Yes 10mg Take 10 mg [facility] (INDERAL) 07 by mouth Colleg e 10 MG 15:26: daily. of tablet 54 Medicin e Ergocalcife 2019-07 Yes [id number] Take [facility] 08-07 50,000 [facility] (ERGOCAL 15:26: Units by of OR) 54 mouth. Medicin e lipase-prot 2019-07 Yes Take 2 [facility] is ease-amylas 1-16 tabs po Healt h e 00:00: with 36,000-114, 00 meals. 000- 180,000 unit CpDR lipase-prot 2019-07- No Take [address] [facility] ease-amylas 1-16 07-22 tabs po Luke s e (CREON) 00:00: 00:00 with Medical 36,000-114, 00 :00 meals. Center 000- 180,000 unit CpDR capsule lipase-prot 2019-07- No Take [address] [facility] ease-amylas 1-16 07-22 tabs po Luke s e (CREON) 00:00: 00:00 with Medical 36,000-114, 00 :00 meals. Center 000- 180,000 unit CpDR capsule furosemide 2019-07 Yes Continue [facility] (LASIX) 40 1-02 taking 1 Healt h mg tablet 00:00: tablet 00 daily as needed for fluid retention. sevelamer 2019-07 Yes 800mg Take 800 [facility] (RENAGEL) 1-02 mg by Health 800 mg 00:00: mouth. tablet 00 sevelamer 2019-07 Yes [id number] 800mg Take 1 Tab [facility] (RENAGEL) 1-02 by mouth 3 [facility] ege 800 MG 00:00: times of tablet 00 daily. Medicin e calcitRIOL 2019-07 Yes 1565 .25ug Take 1 Cap [facility] (ROCALTROL) 1-02 by mouth Deborah ege 0.25 MCG 00:00: daily. of capsule 00 Indication Medici n s: e Secondary Hyperparat hyroidism furosemide 2019-07 Yes [id number] 40mg Take 1 Tab [facility] (LASIX) 40 1-02 by mouth Colle ge MG tablet 00:00: daily as of 00 needed for Medicin Other (leg e swelling). sodium 2019-07 Yes [id number] 650mg Take 2 [place] [facility] bicarbonate 1-02 Tabs by Colle ge 325 MG 00:00: mouth 3 of tablet 00 times Medicin daily. e Ergocalcife 2019-07 Yes [id number] 1{capsu Take 1 Cap [facility] rol 1.25 MG 1-02 le} by mouth Deborah ege ([id number] UT) 00:00: every 7 of CAPS 00 days. Medicin e sevelamer 2019-07 Yes [id number] 800mg Take 1 Tab [facility] (RENAGEL) 1-02 by mouth 3 Deborah ege 800 MG 00:00: times of tablet 00 daily. Medicin e furosemide 2019-07 Yes [id number] 40mg Take 1 Tab [facility] (LASIX) 40 1-02 by mouth Colle ge MG tablet 00:00: daily as of 00 needed for Medicin Other (leg e swelling). sodium 2019-07 Yes [id number] 650mg Take 2 [place] [facility] bicarbonate 1-02 Tabs by Colle ge 325 MG 00:00: mouth 3 of tablet 00 times Medicin daily. e sevelamer 2019-07 Yes [id number] 800mg Take 1 Tab [facility] (RENAGEL) 1-02 by mouth 3 Deborah ege 800 MG 00:00: times of tablet 00 daily. Medicin e furosemide 2019-07 Yes [id number] 40mg Take 1 Tab [facility] (LASIX) 40 1-02 by mouth Colle ge MG tablet 00:00: daily as of 00 needed for Medicin Other (leg e swelling). sodium 2019-07 Yes [id number] 650mg Take 2 [place] [facility] bicarbonate 1-02 Tabs by Colle ge 325 MG 00:00: mouth 3 of tablet 00 times Medicin daily. e sodium 2019-07 Yes [id number] 650mg Take 2 [place] [facility] bicarbonate 1-02 Tabs by Colle ge 325 MG 00:00: mouth 3 of tablet 00 times Medicin daily. e sodium 2019-07 Yes [id number] 650mg Take 2 [place] [facility] bicarbonate 1-02 Tabs by Colle ge 325 MG 00:00: mouth 3 of tablet 00 times Medicin daily. e sevelamer 2019-07 Yes [id number] 800mg Take 1 Tab [facility] (RENAGEL) 02 by mouth 3 Deborah ege 800 MG 00:00: times of tablet 00 daily. Medicin e calcitRIOL 2019-07 Yes 1565 .25ug Take 1 Cap [facility] (ROCALTROL) 02 by mouth Deborah ege 0.25 MCG 00:00: daily. of capsule 00 Indication Medici n s: e Secondary Hyperparat hyroidism furosemide 2019-07 Yes [id number] 40mg Take 1 Tab [facility] (LASIX) 40 02 by mouth Colle ge MG tablet 00:00: daily as of 00 needed for Medicin Other (leg e swelling). sodium 2019-07 Yes [id number] 650mg Take 2 [place] [facility] bicarbonate 1-02 Tabs by Colle ge 325 MG 00:00: mouth 3 of tablet 00 times Medicin daily. e Ergocalcife 2019-07 Yes [id number] 1{capsu Take 1 Cap [facility] rol 1.25 MG 07-02 le} by mouth Deborah ege ([id number] UT) 00:00: every 7 of CAPS 00 days. Medicin e sevelamer 2019-07- No [id number] 800mg Take 1 Tab [facility] (RENAGEL) 07-02 08-08 by mouth 3 Col lege 800 MG 00:00: 00:00 times of tablet 00 :00 daily. Medicin e ondansetron 2019-07 Yes 4mg Take 4 mg H arris (ZOFRAN) 4 0-08 by mouth. Heal th mg tablet 00:00: 00 ondansetron 2019-07 Yes 4mg Take [address] [facility] (ZOFRAN) 4 0-08 by mouth 3 [facility] es MG tablet 00:00: (three) Medic al 00 times Center daily as needed . ondansetron 2019-07 Yes 4mg Take [address] [facility] (ZOFRAN) 4 0-08 by mouth 3 [facility] es MG tablet 00:00: (three) Medic al 00 times Center daily as needed . tacrolimus Yes .5mg Take 0.5 [facility] (PROGRAF) 8-28 mg by Health 0.5 mg 00:00: mouth. capsule 00 rifAXIMin 2021- No 550mg Q.5D Take [address] [facility] 550 mg Tab 3-09 04- tablet [facility] 00:00: 00:00 (550 mg Medical 00 :00 total) by Center mouth 2 (two) times daily. rifAXIMin 2020-0 2021- No 550mg Q.5D Take [address] [facility] 550 mg Tab 08-31 tablet [facility] 00:00: 00:00 (550 mg Medical 00 :00 total) by Center mouth 2 (two) times daily. omeprazole 2020-0 Yes 40mg Q.5D Take 2 [facility] (PRILOSEC[facility] 1-30 [facility] 20 MG 00:00: (40 mg Medical capsule 00 total) by Center mouth 2 (two) times daily. omeprazole 2020-0 Yes 40mg Q.5D Take 2 [facility] (PRILOSEC[facility] 1-30 [facility] 20 MG 00:00: (40 mg Medical capsule 00 total) by Center mouth 2 (two) times daily. Pancrelipas 2020-0 Yes [id number] 2{capsu Take 2 [facility] e, 1- le} Caps by [place] Lip-Prot-Am 00:00: mouth 3 of yl, 62917 00 times Medicin units CPEP daily e (with meals). And 1 cap with snacks. diphenoxyla 2020-0 Yes [id number] 1{tbl} Take 1 Tab [facility] te-atropine 1-03 by mouth 4 Co llege (LOMOTIL) 00:00: times of 2.5-0.025 00 daily as Medici n MG per needed for e tablet Diarrhea. Pancrelipas 2019-0 Yes [id number] 2{capsu Take 2 [facility] e, 1-03 le} Caps by [place] Lip-Prot-Am 00:00: mouth 3 of yl, 44731 00 times Medicin units CPEP daily e (with meals). And 1 cap with snacks. diphenoxyla 2020-0 Yes [id number] 1{tbl} Take 1 Tab [facility] te-atropine 1-03 by mouth 4 Co llege (LOMOTIL) 00:00: times of 2.5-0.025 00 daily as Medici n MG per needed for e tablet Diarrhea. Pancrelipas 2020-0 Yes [id number] 2{capsu Take 2 [facility] e, 1-03 le} Caps by [place] Lip-Prot-Am 00:00: mouth 3 of yl, 71393 00 times Medicin units CPEP daily e (with meals). And 1 cap with snacks. diphenoxyla 2020-0 Yes [id number] 1{tbl} Take 1 Tab [facility] te-atropine 1-03 by mouth 4 Co llege (LOMOTIL) 00:00: times of 2.5-0.025 00 daily as Medici n MG per needed for e tablet Diarrhea. Pancrelipas 2020-0 Yes [id number] 2{capsu Take 2 [facility] e, 1-03 le} Caps by [place] Lip-Prot-Am 00:00: mouth 3 of yl, 67904 00 times Medicin units CPEP daily e (with meals). And 1 cap with snacks. diphenoxyla 2020-0 Yes [id number] 1{tbl} Take 1 Tab [facility] te-atropine 1-03 by mouth 4 Co [facility]lege (LOMOTIL) 00:00: times of 2.5-0.025 00 daily as Medici n MG per needed for e tablet Diarrhea. Pancrelipas 2020-0 Yes [id number] 2{capsu Take 2 [facility] e, 1-03 le} Caps by [place] Lip-Prot-Am 00:00: mouth 3 of yl, 12906 00 times Medicin units CPEP daily e (with meals). And 1 cap with snacks. diphenoxyla 2020-0 Yes [id number] 1{tbl} Take 1 Tab [facility] te-atropine 1-03 by mouth 4 Co llege (LOMOTIL) 00:00: times of 2.5-0.025 00 daily as Medici n MG per needed for e tablet Diarrhea. Pancrelipas 2020-0 Yes [id number] 2{capsu Take 2 [facility] e, 1-03 le} Caps by [place] Lip-Prot-Am 00:00: mouth 3 of yl, 62659 00 times Medicin units CPEP daily e (with meals). And 1 cap with snacks. diphenoxyla 2020-0 Yes [id number] 1{tbl} Take 1 Tab [facility] te-atropine 1-03 by mouth 4 Co llege (LOMOTIL) 00:00: times of 2.5-0.025 00 daily as Medici n MG per needed for e tablet Diarrhea. propranolol 2019-0 Yes 10mg Take 10 mg [facility] (INDERAL) 8-07 by mouth Colleg e 10 MG 18:32: daily. of tablet 30 Medicin e Na 2019-0 Yes [id number] [SUPREP] [facility] Sulfate-K 8-07 Take as College Sulfate-Mg 00:00: directed. of Sulf 00 Medicin (SUPREP e BOWEL PREP KIT) 17.5-3.13-1 .6 GM/177ML SOLN Na 2019-0 Yes [id number] [SUPREP] [facility] Sulfate-K 8-07 Take as College Sulfate-Mg 00:00: directed. of Sulf 00 Medicin (SUPREP e BOWEL PREP KIT) 17.5-3.13-1 .6 GM/177ML SOLN Na 2019-0 Yes [id number] [SUPREP] [facility] Sulfate-K 8- Take as College Sulfate-Mg 00:00: directed. of Sulf 00 Medicin (SUPREP e BOWEL PREP KIT) 17.5-3.13-1 .6 GM/177ML SOLN Na 2019-0 Yes [id number] [SUPREP] [facility] Sulfate-K 8- Take as College Sulfate-Mg 00:00: directed. of Sulf 00 Medicin (SUPREP e BOWEL PREP KIT) 17.5-3.13-1 .6 GM/177ML SOLN Na 2019-0 Yes [id number] [SUPREP] [facility] Sulfate-K 8- Take as College Sulfate-Mg 00:00: directed. of Sulf 00 Medicin (SUPREP e BOWEL PREP KIT) 17.5-3.13-1 .6 GM/177ML SOLN Na 2019-0 Yes [id number] [SUPREP] [facility] Sulfate-K 8-07 Take as College Sulfate-Mg 00:00: directed. of Sulf 00 Medicin (SUPREP e BOWEL PREP KIT) 17.5-3.13-1 .6 GM/177ML SOLN Na 2019-0 Yes [id number] [SUPREP] [facility] Sulfate-K 8-07 Take as College Sulfate-Mg 00:00: directed. of Sulf 00 Medicin (SUPREP e BOWEL PREP KIT) 17.5-3.13-1 .6 GM/177ML SOLN metronidazo 2018-0 2019- No [id number] 500mg Take 1 Tab [facility] le (FLAGYL) 8-07 08-15 by mouth Col lege 500 MG 00:00: 04:59 two times of tablet 00 :00 daily for Medicin 7 days. e tacrolimus 2019-0 Yes .5mg Take 0.5 [place] [facility] (PROGRAF) 5-21 mg by [place] 0.5 MG 00:00: mouth two of capsule 00 times Medicin daily. e tacrolimus 2019-0 Yes .5mg Take 0.5 [place] [facility] (PROGRAF) 5-21 mg by College 0.5 MG 00:00: mouth two of capsule 00 times Medicin daily. e tacrolimus 2019-0 Yes .5mg Take 0.5 [place] [facility] (PROGRAF) 5-21 mg by College 0.5 MG 00:00: mouth two of capsule 00 times Medicin daily. e tacrolimus 2019-0 Yes .5mg Take 0.5 [place] [facility] (PROGRAF) 5-21 mg by [place] 0.5 MG 00:00: mouth two of capsule 00 times Medicin daily. e tacrolimus 2019-0 Yes .5mg Take 0.5 [place] [facility] (PROGRAF) 5-21 mg by [place] 0.5 MG 00:00: mouth two of capsule 00 times Medicin daily. e tacrolimus 2019-0 Yes .5mg Take 0.5 [place] [facility] (PROGRAF) 5-21 mg by [place] 0.5 MG 00:00: mouth two of capsule 00 times Medicin daily. e tacrolimus 2019-0 Yes .5mg Take 0.5 [place] [facility] (PROGRAF) 5-21 mg by [place] 0.5 MG 00:00: mouth two of capsule [...] daily. of capsule 00 Medicin e furosemide 0 2020- No 20mg Take 20 mg [facility] (LASIX) 20 2-05 02-06 by mouth Deborah ege MG tablet 00:00: 05:59 daily. of 00 :00 Medicin e Calcium 2017-07 2019- No 1500mg Take 1,500 [place] Carbonate 2-10 12-11 mg by College (CALCIUM 00:00: 05:59 mouth of 600) 600 MG 00 :00 daily. Medici n TABS e azithromyci 2017-07 Yes 1{tbl} Take 1 Tab [facility] n 0-08 by mouth College (ZITHROMAX) 00:00: every of 250 MG 00 Saturday, Medicin tablet Saturday, e Saturday. azithromyci 2017-07 Yes 1{tbl} Take 1 Tab [facility] n 0-08 by mouth College (ZITHROMAX) 00:00: every of 250 MG 00 Saturday, Medicin tablet Saturday, e Saturday. azithromyci 2017-07 Yes 1{tbl} Take 1 Tab [facility] n 0-08 by mouth College (ZITHROMAX) 00:00: every of 250 MG 00 Saturday, Medicin tablet Saturday, e Saturday. azithromyci 2017-07 Yes 1{tbl} Take 1 Tab [facility] n 0-08 by mouth College (ZITHROMAX) 00:00: every of 250 MG 00 Saturday, Medicin tablet Saturday, e Saturday. azithromyci 2017-07 Yes 1{tbl} Take 1 Tab [facility] n 0-08 by mouth College (ZITHROMAX) 00:00: every of 250 MG 00 Saturday, Medicin tablet Saturday, e Saturday. azithromyci 2017-07 Yes 1{tbl} Take 1 Tab [facility] n 0-08 by mouth [place] (ZITHROMAX) 00:00: every of 250 MG 00 Saturday, Medicin tablet Saturday, e Saturday. azithromyci 2017-07 Yes 1{tbl} Take 1 Tab [facility] n 0-08 by mouth [place] (ZITHROMAX) 00:00: every of 250 MG 00 Saturday, Medicin tablet Saturday, e Saturday. predniSONE 2011-07 Yes [id number] 10mg Take 1 Tab [facility] (DELTASONE) 1-05 by mouth Deborah ege 10 MG 00:00: daily. of tablet 00 Take as Medicin directed e predniSONE 2011-07 Yes [id number] 10mg Take 1 Tab [facility] (DELTASONE) 1-05 by mouth Deborah ege 10 MG 00:00: daily. of tablet 00 Take as Medicin directed e predniSONE 2011-07 Yes [id number] 10mg Take 1 Tab [facility] (DELTASONE) 1-05 by mouth Deborah ege 10 MG 00:00: daily. of tablet 00 Take as Medicin directed e predniSONE 2011-07 Yes [id number] 10mg Take 1 Tab [facility] (DELTASONE) 1-05 by mouth Deborah ege 10 MG 00:00: daily. of tablet 00 Take as Medicin directed e predniSONE 2011-07 Yes [id number] 10mg Take 1 Tab [facility] (DELTASONE) 1-05 by mouth Deborah ege 10 MG 00:00: daily. of tablet 00 Take as Medicin directed e predniSONE 2011-07 Yes [id number] 10mg Take 1 Tab [facility] (DELTASONE) 1-05 by mouth Deborah ege 10 MG 00:00: daily. of tablet 00 Take as Medicin directed e predniSONE 2011-07 Yes [id number] 10mg Take 1 Tab [facility] (DELTASONE) 1-05 by mouth Deborah ege 10 MG 00:00: daily. of tablet 00 Take as Medicin directed e albuterol Yes [id number] 1{puff} Inhale 1-2 [facility] (PROAIR 7-18 Puffs by Deborah ege HFA) 108 00:00: mouth of (90 base) 00 every 6 Medicin mcg/act hours as e inhaler needed for Wheezing (or shortness of breath). albuterol Yes [id number] 1{puff} Inhale 1-2 [facility] (PROAIR 7-18 Puffs by Deborah ege HFA) 108 00:00: mouth of (90 base) 00 every 6 Medicin mcg/act hours as e inhaler needed for Wheezing (or shortness of breath). albuterol Yes [id number] 1{puff} Inhale 1-2 [facility] HFA (PROAIR 7-18 Puffs by Deborah ege HFA) 108 00:00: mouth of (90 base) 00 every 6 Medicin mcg/act hours as e inhaler needed for Wheezing (or shortness of breath). albuterol Yes [id number] 1{puff} Inhale 1-2 [facility] HFA (PROAIR 7-18 Puffs by Deborah ege HFA) 108 00:00: mouth of (90 base) 00 every 6 Medicin mcg/act hours as e inhaler needed for Wheezing (or shortness of breath). albuterol Yes [id number] 1{puff} Inhale 1-2 [facility] (PROAIR 7-18 Puffs by Deborah ege HFA) 108 00:00: mouth of (90 base) 00 every 6 Medicin mcg/act hours as e inhaler needed for Wheezing (or shortness of breath). albuterol Yes [id number] 1{puff} Inhale 1-2 [facility] (PROAIR 7-18 Puffs by Deborah ege HFA) 108 00:00: mouth of (90 base) 00 every 6 Medicin mcg/act hours as e inhaler needed for Wheezing (or shortness of breath). albuterol Yes [id number] 1{puff} Inhale 1-2 [facility] (PROAIR 7-18 Puffs by Deborah ege HFA) 108 00:00: mouth of (90 base) 00 every 6 Medicin mcg/act hours as e inhaler needed for Wheezing (or shortness of breath). Immunizations Ordered Immunization Filled Immunization Date Status Commen ts Source Name Name Covid-19 Vaccine MRNA 2020-10-07 Completed [facility] (PF) 18yr+ 00:00:00 [facility]([id number]) Covid-19 Vaccine MRNA 2020-10-[address] [facility] (PF) 18yr+ 00:00:00 [facility]([id number]) Moderna SARS-CoV-2 2020-10-07 Completed [facility] Vaccination 00:00:00 of Medicine Moderna SARS-CoV-2 2020-10-07 Completed [facility] Vaccination 00:00:00 of Medicine Moderna SARS-CoV-2 2020-10-07 Completed [facility] Vaccination 00:00:[facility] .[facility] 2020-10-07 Completed [facility] ge SARS-CoV-2 00:00:00 of Medicine Vaccination Covid-19 Vaccine MRNA 2020-08-[address] [facility] (PF) 18yr+ 00:00:00 [facility]([id number]) Covid-19 Vaccine MRNA 2020-08-[address] [facility] (PF) 18yr+ 00:00:00 [facility]([id number]) Moderna SARS-CoV-2 2020-08-31 Completed [facility] Vaccination 00:00:00 of Medicine Moderna SARS-CoV-2 2020-08-31 Completed [facility] Vaccination 00:00:00 of Medicine Moderna SARS-CoV-2 2020-08-31 Completed [facility] Vaccination 00:00:00 [facility] .5mL 2020-08-31 Completed [facility] ge SARS-CoV-2 00:00:00 of Medicine Vaccination INFLUENZA TRIVALENT 2019-04-25 Completed [facility] ADJUVANTED PF IM 00:00:00 [facility] INFLUENZA TRIVALENT 2019-04-25 [facility] ADJUVANTED PF IM 00:00:00 [facility] Pneumococcal 2018-05-[address] [facility] Conjugate (Prevnar) 00:00:00 [facility] 13-Valent Influenza High Dose 2018-05-29 Completed [facility] Preservative Free IM 00:00:00 [facility] ([id number]) Pneumococcal 2018-05-[address] [facility] Conjugate (Prevnar) 00:00:00 [facility] 13-Valent Influenza High Dose 2018-05-29 Completed [facility] Preservative Free IM 00:00:00 [facility] ([id number]) Influenza High Dose 2016-06-05 Completed [facility] Preservative Free IM 00:00:00 [facility] ([id number]) Influenza High Dose 2016-06-05 Completed [facility] Preservative Free IM 00:00:00 [facility] ([id number]) Influenza High Dose 2015-05-24 Com[facility] Preservative Free 00:00:00 [facility] [id number] Influenza High Dose 2015-05-24 Com[facility] Preservative Free 00:00:00 [facility] Influenza, High Dose 2014-04-[address] [facility] Seasonal 00:00:00 [facility] Influenza, High Dose 2014-04-[address] [facility] Seasonal 00:00:00 [facility] Hepatitis B 2012-08-[address] [facility] 00:00:00 [facility] Hepatitis B 2012-08-[address] [facility] 00:00:00 [facility] Hepatitis B 2012-06-[address] [facility] 00:00:00 [facility] Hepatitis B 2012-06-[address] [facility] 00:00:00 [facility] Influenza TIV (IM) 2012-03-[address] [facility] 00:00:00 [facility] Influenza TIV (IM) 2012-03-[address] [facility] 00:00:00 [facility] Td 2008-10-21 Completed [facility] College 00:00:00 of Medicine Pneumococcal 2008-10-21 Completed [facility] Colle ge Conjugate 00:00:00 of Medicine Td 2008-10-21 Completed [facility] 00:00:00 of Medicine Pneumococcal 2008-10-21 Completed [facility] Colle ge Conjugate 00:00:00 of Medicine Td 2008-10-21 Completed [facility] 00:00:00 of Medicine Pneumococcal 2008-10-21 Completed [facility] Conjugate 00:00:00 of Medicine Td 2008-10-21 Completed [facility] 00:00:00 of Medicine Pneumococcal 2008-10-21 Completed [facility]le [facility] Conjugate 00:00:00 of Medicine Td 2008-10-21 Completed [facility] College 00:00:00 of Medicine Pneumococcal 2008-10-21 Completed [facility] Conjugate 00:00:00 of Medicine Td 2008-10-21 Completed [facility] 00:00:00 of Medicine Pneumococcal 2008-10-21 Completed [facility] Colle ge Conjugate 00:00:00 of Medicine Td 2008-10-21 Completed [facility] College 00:00:00 of Medicine Pneumococcal 2008-10-21 Completed [facility] Colle ge Conjugate 00:00:00 of Medicine Pneumococcal 2008-07-[address] [facility] Polysaccharide 00:00:00 Medical Ce [facility]ter (Pneumovax) Pneumococcal 2008-07-[address] [facility] Polysaccharide 00:00:00 Medical Ce nter (Pneumovax) Vital Signs Vital Name Observation Time Observation Value Comments Source WEIGHT 2020-02-23 00:00:00 51.801 kg Systolic blood 2022-05-21 19:41:00 187 mm[Hg] [facility] Medicine Diastolic blood 2022-05-21 19:41:00 62 mm[Hg] [facility] Medicine Heart rate 2022-05-21 19:41:00 66 /min [facility] ollege [facility]3] Respiratory rate 2022-05-21 19:41:00 16 /min [facility] Body height 2022-05-21 19:41:[address] [facility] ollege of [facility] Body weight 2022-05-21 19:41:[address] [facility] ollege of [facility] BMI 2022-05-21 19:41:00 19.21 kg/m2 [facility] ollege of [facility] Systolic blood 2022-02-05 18:02:00 173 mm[Hg] [facility] Medicine Diastolic blood 2022-02-05 18:02:00 78 mm[Hg] [facility] Medicine Heart rate 2022-02-05 18:02:00 71 /min [facility] ollege of [facility] Respiratory rate 2022-02-05 18:02:00 16 /min [facility] Body height 2022-02-05 18:02:[address] [facility] ollege of [facility] Body weight 2022-02-05 18:02:[address] [facility] ollege of [facility] BMI 2022-02-05 18:02:00 19.50 kg/m2 [facility] ollege of Medicine Systolic blood 2021-08-07 15:21:00 116 mm[Hg] [facility] Medicine Diastolic blood 2021-08-07 15:21:00 62 mm[Hg] [facility] Medicine Heart rate 2021-08-07 15:21:00 60 /min [facility] C ollege of Medicine Body height 2021-08-07 15:21:00 167.6 cm [facility] Body weight 2021-08-07 15:21:00 55.792 kg [facility] C ollege of Medicine BMI 2021-08-07 15:21:00 19.85 kg/m2 [facility] WEIGHT 2021-02-28 10:08:00 58.559 kg WEIGHT 2021-02-28 10:08:00 58.559 kg WEIGHT 2021-02-13 12:20:00 57.108 kg WEIGHT 2020-11-09 20:00:00 54.477 kg HEIGHT 2020-11-09 20:00:00 165.1 cm WEIGHT 2020-11-09 20:00:00 54.477 kg HEIGHT 2020-11-09 20:00:00 165.1 cm Systolic blood 2020-10-17 14:53:00 124 mm[Hg] [facility] of pressure Medicine Diastolic blood 2020-10-17 14:53:00 65 mm[Hg] [facility] of pressure Medicine Heart rate 2020-10-17 14:53:00 65 /min [facility] C ollege of Medicine Body height 2020-10-17 14:53:00 167.6 cm [facility] C ollege of Medicine Body weight 2020-10-17 14:53:00 54.432 kg [facility] C ollege of Medicine BMI 2020-10-17 14:53:00 19.37 kg/m2 [facility] C ollege of Medicine Systolic blood 2020-10-17 14:53:00 124 mm[Hg] [facility] of pressure Medicine Diastolic blood 2020-10-17 14:53:00 65 mm[Hg] [facility] of pressure Medicine Heart rate 2020-10-17 14:53:00 65 /min [facility] Body height 2020-10-17 14:53:00 167.6 cm [facility] C ollege of Medicine Body weight 2020-10-17 14:53:00 54.432 kg [facility] C ollege of Medicine BMI 2020-10-17 14:53:00 19.37 kg/m2 [facility] C ollege of Medicine WEIGHT 2020-09-16 09:02:00 47.628 kg HEIGHT 2020-08-23 14:44:00 165.1 cm WEIGHT 2020-08-23 14:44:00 44.861 kg WEIGHT 2020-08-01 12:00:00 44.543 kg WEIGHT 2020-07-31 10:00:00 44.861 kg WEIGHT 2020-08-01 12:00:00 44.543 kg WEIGHT 2020-07-31 10:00:00 44.861 kg Systolic blood 2020-07-26 15:47:00 107 mm[Hg] [facility] pressure Medicine Diastolic blood 2020-07-26 15:47:00 61 mm[Hg] [facility] Medicine Heart rate 2020-07-26 15:47:00 79 /min [facility] Systolic blood 2020-07-26 15:47:00 107 mm[Hg] [facility] pressure Medicine Diastolic blood 2020-07-26 15:47:00 61 mm[Hg] [facility] pressure Medicine Heart rate 2020-07-26 15:47:00 79 /min [facility] HEIGHT 2020-07-14 12:21:00 167.6 cm WEIGHT [...] kg Systolic blood 2020-06-06 15:21:00 91 mm[Hg] [facility] Medicine Diastolic blood 2020-06-06 15:21:00 62 mm[Hg] [facility] Medicine Heart rate 2020-06-06 15:21:00 84 /min [facility] ollege of Medicine Respiratory rate 2020-06-06 15:21:00 16 /min [facility] Body height 2020-06-06 15:21:00 167.6 cm [facility] C ollege of Medicine Body weight 2020-06-06 15:21:[address] [facility] ollege of Medicine BMI 2020-06-06 15:21:00 18.69 kg/m2 [facility] ollege of Medicine Systolic blood 2020-06-06 15:21:00 91 mm[Hg] [facility] Medicine Diastolic blood 2020-06-06 15:21:00 62 mm[Hg] [facility] Medicine Heart rate 2020-06-06 15:21:00 84 /min [facility] ollege of Medicine Respiratory rate 2020-06-06 15:21:00 16 /min [facility] Body height 2020-06-06 15:21:00 167.6 cm [facility] C ollege of Medicine Body weight 2020-06-06 15:21:[address] [facility] ollege of Medicine BMI 2020-06-06 15:21:00 18.69 kg/m2 [facility] C ollege of Medicine HEIGHT [...] kg Systolic blood 2019-02-04 18:32:00 130 mm[Hg] [facility] pressure Medicine Diastolic blood 2019-02-04 18:32:00 75 mm[Hg] [facility] pressure Medicine Heart rate 2019-02-04 18:32:00 61 /min [facility] Body temperature 2019-02-04 18:32:00 36.89 Saray [facility] Respiratory rate 2019-02-04 18:32:00 16 /min [facility] Body height 2019-02-04 18:32:00 167.6 cm [facility] Body weight 2019-02-04 18:32:00 52.345 kg [facility] BMI 2019-02-04 18:32:00 18.63 kg/m2 [facility] Systolic blood 2019-02-04 18:32:00 130 mm[Hg] [facility] Diastolic blood 2019-02-04 18:32:00 75 mm[Hg] [facility] Heart rate 2019-02-04 18:32:00 61 /min [facility] Body temperature 2019-02-04 18:32:00 36.89 Saray [facility] Respiratory rate 2019-02-04 18:32:00 16 /min [facility] Body height 2019-02-04 18:32:00 167.6 cm [facility] Body weight 2019-02-04 18:32:00 52.345 kg [facility] BMI 2019-02-04 18:32:00 18.63 kg/m2 [facility] Body height 2022-07-13 15:08:00 167.6 cm [facility] Systolic blood 2022-01-16 13:34:00 181 mm[Hg] [facility] Diastolic blood 2022-01-16 13:34:00 73 mm[Hg] [facility] Heart rate 2022-01-16 13:34:00 62 /min [facility] Body temperature 2022-01-16 13:34:00 36 Saray [facility] Body height 2022-01-16 13:34:00 167.6 cm [facility] Body weight 2022-01-16 13:34:00 52.663 kg [facility] BMI 2022-01-16 13:34:00 18.74 kg/m2 [facility] Oxygen saturation in 2022-01-16 13:34:00 100 /min [facility] Arterial blood by Medical Ce nter Pulse oximetry Respiratory rate 2022-01-16 11:31:00 18 /min [facility] Procedures Procedure Date / Time Performing Clinician Source Performed COMPREHENSIVE METABOLIC 2022-05-21 20:19:00 Roman Myers [facility] PANEL [facility] Medicine PHOSPHORUS 2022-05-21 20:19:00 Lucia neo Baez [facility] llege of [facility] URIC ACID 2022-05-21 20:19:00 Lucia neo Baez [facility] of [facility] CBC W/AUTO DIFF WITH 2022-05-21 20:19:00 Lucia neo Baez [facility] or [facility] PLATELETS [facility] IRON+TIBC+%SAT 2022-05-21 20:19:00 Lucia neo Baez [facility] TACROLIMUS LEVEL 2022-05-21 20:19:00 Lucia neo Baez [facility] Ez ollege of [facility] URINALYSIS, COMPLETE 2022-05-21 20:19:00 Lucia neo Baez [facility] or [facility] W/REFLEX TO CULTURE [facility] 6 MINUTE WALK(FOR LUNG 2022-01-16 10:16:31 July Hennessy [facility] TRANSPLANT ONLY) Medical Center SPIROMETRY 2022-01-16 10:16:31 July HennessyVamshi [facility] CBC W/PLT COUNT & AUTO 2022-01-16 09:59:00 Pb Gross [facility] CMV PCR, QUANTITATIVE 2022-01-16 09:59:[address] [facility] COMPREHENSIVE METABOLIC 2022-01-16 09:59:00 Ginny, [facility] EBV VIRAL LOAD 2022-01-16 09:59:00 [facility] HEMOGLOBIN A1C 2022-01-16 09:59:00 [facility] IMMUNOGLOBULIN G (IGG) 2022-01-16 09:59:00 [facility] LIPID PANEL 2022-01-16 09:59:00 Ginny [facility] MAGNESIUM 2022-01-16 09:59:00 Ginny [facility] PSA 2022-01-16 09:59:00 Ginny [facility] TACROLIMUS LEVEL 2022-01-16 09:59:00 Ginny, [facility] VITAMIN D, 25-HYDROXY 2022-01-16 09:59:[address] [facility] FLOW PRA CLASS I WITH 2022-01-16 09:59:00 Pb Gross [facility] REFLEX TO ANTIBODY Medical Cente r SPECIFICITY FLOW PRA CLASS II WITH 2022-01-16 09:59:00 Ginny [facility] REFLEX TO ANTIBODY Medical Cente r SPECIFICITY AB SPECIFICITY CLASS I 2022-01-16 09:59:00 Ginny [facility] AB SPECIFICITY CLASS II 2022-01-16 09:59:00 Ginny [facility] AB DONOR SPECIFIC, DSA 2022-01-16 09:59:00 Ginny [facility] CBC W/PLT COUNT & AUTO 2022-01-16 09:59:00 Ginny [facility] URINE CULTURE 2022-01-16 09:57:00 Ginny, [facility] CREATININE, RANDOM URINE 2022-01-16 09:57:00 Ginny [facility] MICROALBUMIN, RANDOM 2022-01-16 09:57:00 Ginny [facility] URINE [facility] PROTEIN, RANDOM URINE 2022-01-16 09:57:[address] [facility] URINALYSIS W/ REFLEX 2022-01-16 09:57:00 Pb Gross [facility] URINE CULTURE [facility] CT CHEST WITHOUT IV 2022-01-16 08:22:00 July Hennessy [facility] XR DXA BONE DENSITY STUDY 2022-01-16 08:15:00 July Hennessy [facility] CBC W/PLT COUNT & AUTO 2021-12-04 10:45:00 Que [facility] CMV PCR, QUANTITATIVE 2021-12-04 10:45:00 Que [facility] COMPREHENSIVE METABOLIC 2021-12-04 10:45:[address] [facility] MAGNESIUM 2021-12-04 10:45:00 Que [facility] TACROLIMUS LEVEL 2021-12-04 10:45:00 Que [facility] MR ABDOMEN WITH & WITHOUT 2021-08-28 12:45:00 Brook Gomez [facility] IV [facility] BASIC METABOLIC PANEL 2021-08-07 16:18:00 Lucia, [facility] ALBUMIN 2021-08-07 16:18:00 Lucia [facility] llege of [facility] FERRITIN 2021-08-07 16:18:00 [facility] PTH INTACT 2021-08-07 16:18:00 Lucia, [facility] PHOSPHORUS 2021-08-07 16:18:00 [facility] CBC W/O DIFF W PLT 2021-08-07 16:18:00 Lucia [facility] VITAMIN D 25 HYDROXY 2021-08-07 16:18:00 Lucia, [facility] IRON+TIBC+%SAT 2021-08-07 16:18:00 Lucia [facility] llege of [facility] ([facility]) LAB 2021-08-07 14:33:16 Lucia, [facility] llege of [facility] ALBUMIN 2021-08-07 10:18:00 [facility] BASIC METABOLIC PANEL 2021-08-07 10:18:00 [facility] CBC W/O DIFF W PLT 2021-08-07 10:18:00 [facility] FERRITIN 2021-08-07 10:18:00 [facility] IRON+TIBC+%SAT 2021-08-07 10:18:00 [facility] PTH INTACT 2021-08-07 10:18:00 [facility] PHOSPHORUS 2021-08-07 10:18:00 [facility] VITAMIN D 25 HYDROXY 2021-08-07 10:18:00 [facility] CALCIUM 2021-08-07 09:50:03 [facility] ([facility]) LAB 2021-08-07 08:33:16 [facility] BASIC METABOLIC PANEL 2020-10-17 15:33:00 Lucia [facility] ALBUMIN 2020-10-17 15:33:00 Lucia [facility] PTH INTACT 2020-10-17 15:33:00 Lucia [facility] PHOSPHORUS 2020-10-17 15:33:00 Lucia [facility] CBC W/O DIFF W PLT 2020-10-17 15:33:00 Lucia [facility] VITAMIN D 25 HYDROXY 2020-10-17 15:33:00 Lucia [facility] IRON+TIBC+%SAT 2020-10-17 15:33:00 Lucia [facility] Plan of Care Planned Activity Planned Date Details Comments Source Future Scheduled 2029-02-[address] [facility] 00:00:00 malignant neoplasm Medical C enter of colon (procedure) [code = 056352147] Future Scheduled 2029-02-[address] [facility] Test 00:00:00 malignant neoplasm Medical C enter of colon (procedure) [code = 579733788] Future Scheduled 2029-02-[address] [facility] Test 00:00:00 malignant neoplasm Medical C enter of colon (procedure) [code = 453447043] Future Scheduled 2029-02-[address] [facility] Test 00:00:00 malignant neoplasm Medical C enter of colon (procedure) [code = 325070040] Future Scheduled 2027-01-[address] [facility] Test 00:00:00 (procedure) [code = [facility] [id number]] Future Scheduled 2027-01-[address] [facility] Test 00:00:00 (procedure) [code = [facility] [id number]] Future Scheduled 2023-01-[address] [facility] Test 00:00:00 Counseling [facility] Medical Cente r Screening (12+) [code = Tobacco Cessation Counseling and Screening (12+)] Future Scheduled 2023-01-[address] [facility] Test 00:00:00 Counseling and Medical Cente r Screening (12+) [code = Tobacco Cessation Counseling and Screening (12+)] Future Scheduled [address] [facility] Test 00:00:00 aneurysm screening Medical C enter (procedure) [code = 302477475] Future Scheduled 2022-07-01 FALLS RISK SCREENING [facility] Test 00:00:00 [code = FALLS RISK Medical C enter SCREENING] Future Scheduled 2022-05-28 ZOSTER VACCINE (1 of [facility] Test 13:31:07 2) [code = ZOSTER of Medicin e VACCINE (1 of 2)] Future Scheduled 2022-05-28 TETANUS SHOT (ADULT) [facility] Test 13:31:07 [code = TETANUS SHOT of Medi cine (ADULT)] Future Scheduled 2022-05-28 COVID-19 Vaccine (3 [facility] or [place] Test 13:31:07 - Moderna risk of Medicine series) [code = COVID-19 Vaccine (3 - Moderna risk series)] Future Scheduled 2022-05-28 FLU VACCINE > 6 [facility] C ollege Test 13:31:07 MONTHS [code = FLU of Medici ne VACCINE > 6 MONTHS] Future Scheduled 2022-05-28 Screening for [facility] Test 13:31:07 malignant neoplasm of Medici ne of colon (procedure) [code = 056730476] Future Scheduled 2022-03-31 IMM Influenza [facility] 00:00:00 Seasonal (>/= 19 yrs) [code = IMM Influenza Seasonal (>/= 19 yrs)] Future Scheduled 2022-03-[address] [facility] Test 00:00:00 (#1) [code = Medical Center INFLUENZA VACCINE (#1)] Future Scheduled 2022-03-[address] [facility] Test 00:00:00 (#1) [code = Medical Center INFLUENZA VACCINE (#1)] Future Scheduled 2022-02-05 ZOSTER VACCINE (1 of [facility] Test 13:36:03 2) [code = ZOSTER of Medicin e VACCINE (1 of 2)] Future Scheduled 2022-02-05 Pneumococcal [facility] Test 13:36:03 Combined (2 - PPSV23 of Medi cine or PCV20) [code = Pneumococcal Combined (2 - PPSV23 or PCV20)] Future Scheduled 2022-02-05 TETANUS SHOT (ADULT) [facility] Test 13:36:03 [code = TETANUS SHOT of Medi cine (ADULT)] Future Scheduled 2022-02-05 COVID-19 Vaccine (3 [facility] or [place] Test 13:36:03 - Moderna risk of Medicine series) [code = COVID-19 Vaccine (3 - Moderna risk series)] Future Scheduled 2022-02-05 FLU VACCINE > 6 [facility] C ollege Test 13:36:03 MONTHS [code = FLU of Medici ne VACCINE > 6 MONTHS] Future Scheduled 2022-02-05 Screening for [facility] Test 13:36:03 malignant neoplasm of Medici ne of colon (procedure) [code = 862002566] Future Scheduled 2022-02-05 IRON+TIBC+%SAT [code Ordered: [facility] Test 13:18:53 = NOCPT] 02/05/2022 of Medicine Future Scheduled 2021-08-27 ZOSTER VACCINE (1 of [facility] Test 19:33:16 2) [code = ZOSTER of Medicin e VACCINE (1 of 2)] Future Scheduled 2021-08-27 Pneumococcal [facility] Test 19:33:16 Combined (1 of 2 - of Medici ne PPSV23) [code = Pneumococcal Combined (1 of 2 - PPSV23)] Future Scheduled 2021-08-27 TETANUS SHOT (ADULT) [facility] Test 19:33:16 [code = TETANUS SHOT of Medi cine (ADULT)] Future Scheduled 2021-08-27 COVID-19 Vaccine (3 [employer] Test 19:33:16 - Moderna risk of Medicine 4-dose series) [code = COVID-19 Vaccine (3 - Moderna risk 4-dose series)] Future Scheduled 2021-08-27 FLU VACCINE > 6 [facility] C ollege Test 19:33:16 MONTHS [code = FLU of Medici ne VACCINE > 6 MONTHS] Future Scheduled 2021-08-27 Screening for [facility] 19:33:16 malignant neoplasm of Medici ne of colon (procedure) [code = 434805175] Future Scheduled 2021-08-07 CALCIUM [code = Ordered: [facility]lege Test 09:50:03 83762-9] 08/07/2021 of Medicine Future Scheduled 2020-11-06 ZOSTER VACCINE (1 of [employer] Test 15:00:30 2) [code = ZOSTER of Medicin e VACCINE (1 of 2)] Future Scheduled 2020-11-06 TETANUS SHOT (ADULT) [employer] Test 15:00:30 [code = TETANUS SHOT of Medi cine (ADULT)] Future Scheduled 2020-11-06 FLU VACCINE > 6 [facility] Test 15:00:30 MONTHS [code = FLU of Medici ne VACCINE > 6 MONTHS] Future Scheduled 2020-11-06 Screening for [facility] Test 15:00:30 malignant neoplasm of Medici ne of colon (procedure) [code = 974593837] Future Scheduled 2020-11-04 COVID-19 VACCINE ([address] [facility] Test 00:00:00 - Moderna risk Medical Cente r series) [code = COVID-19 VACCINE (3 - Moderna risk series)] Future Scheduled 2020-11-04 COVID-19 VACCINE ([address] [facility] Test 00:00:00 - Moderna risk Medical Cente r series) [code = COVID-19 VACCINE (3 - Moderna risk series)] Future Scheduled 2020-10-17 CALCIUM [code = Ordered: [facility] C ollege Test 10:19:16 12405-0] 10/17/2020 of Medicine Future Scheduled 2019-05-[address] [facility] Test 00:00:00 0-64 YRS (3 - PPSV23 Medical Center or PCV20) [code = PNEUMOCOCCAL VACCINE 0-64 YRS (3 - PPSV23 or PCV20)] Future Scheduled 2019-05-29 PNEUMOCOCCAL 65+ YRS [facility] Test 00:00:00 (3 - PPSV23 or Medical [facility] r PCV20) [code = PNEUMOCOCCAL 65+ YRS (3 - PPSV23 or PCV20)] Future Scheduled 2007 Screening for [place] [facility] Test 00:00:00 malignant neoplasm of colon (procedure) [code = 201602633] Future Scheduled 2007 SHINGLES VACCINES ([address] [facility] Test 00:00:00 of 2) [code = Medical Center SHINGLES VACCINES (1 of 2)] Future Scheduled 2007 SHINGLES VACCINES ([address] [facility] Test 00:00:00 of 2) [code = [facility] SHINGLES VACCINES (1 of 2)] Future Scheduled 1976 DTAP/TDAP/TD [facility] Test 00:00:00 VACCINES (1 - Tdap) [facility] [code = DTAP/TDAP/TD VACCINES (1 - Tdap)] Future Scheduled 1976 DTAP/TDAP/TD [facility] Test 00:00:00 VACCINES (1 - Tdap) [facility] [code = DTAP/TDAP/TD VACCINES (1 - Tdap)] Future Scheduled 1963 Imm Pneumococcal 65+ [facility] Test 00:00:00 (1 - PCV) [code = Imm Pneumococcal 65+ (1 - PCV)] Future Scheduled 1958-01-09 COVID-19 Vaccine [facility] Test 00:00:00 (#1) [code = COVID-19 Vaccine (#1)] Future Scheduled [address] [facility] Test 00:00:00 (combo) [code = CT Medical C enter Colonography (combo)] Future Scheduled [address] [facility] Test 00:00:00 malignant neoplasm Medical C enter of colon (procedure) [code = 618386645] Future Scheduled [address] [facility] Test 00:00:00 malignant neoplasm Medical C enter of colon (procedure) [code = 417435186] Future Scheduled 1957 Sigmoidoscopy [code [facility] Test 00:00:00 = Sigmoidoscopy] Medical [address] [facility] Future Scheduled [address] [facility] Test 00:00:00 (combo) [code = CT Medical C enter Colonography (combo)] Future Scheduled [address] [facility] Test 00:00:00 malignant neoplasm Medical C enter of colon (procedure) [code = 001255273] Future Scheduled [address] [facility] Test 00:00:00 malignant neoplasm Medical C enter of colon (procedure) [code = 229054083] Future Scheduled 1957 Sigmoidoscopy [code [facility] Test 00:00:00 = Sigmoidoscopy] Medical [address] [facility] Future Scheduled COVID-19 Vaccine [facility] Test Evaluation [code = of Medici ne COVID-19 Vaccine Evaluation] Future Scheduled ZOSTER VACCINE (1 of [facility] Test 2) [code = ZOSTER of Medicin e VACCINE (1 of 2)] Future Scheduled TETANUS SHOT (ADULT) [employer] Test [code = TETANUS SHOT of Medi cine (ADULT)] Future Scheduled FLU VACCINE > 6 [facility] C ollege Test MONTHS [code = FLU of Medici ne VACCINE > 6 MONTHS] Future Scheduled COLON CANCER [facility] Test SCREENING: of Medicine COLONOSCOPY [code = COLON CANCER SCREENING: COLONOSCOPY] Future Scheduled TETANUS SHOT (ADULT) [employer] Test [code = TETANUS SHOT of Medi cine (ADULT)] Future Scheduled FLU VACCINE > 6 [facility] C ollege Test MONTHS [code = FLU of Medici ne VACCINE > 6 MONTHS] Future Scheduled PREVNAR >= 65 [facility] Test (PCV13) [code = of Medicine PREVNAR >= 65 (PCV13)] Future Scheduled COLON CANCER [facility] Test SCREENING: of Medicine COLONOSCOPY [code = COLON CANCER SCREENING: COLONOSCOPY] Future Scheduled BASIC METABOLIC Ordered: [facility] C [facility]lege Test PANEL [code = 06/06/2020 of Medicine 04427-0] Future Scheduled CBC W/O DIFF W PLT Ordered: [employer] Test [code = 6690-2] 06/06/2020 of Medicine Future Scheduled BMI FOLLOW UP PLAN [facility] Test [code = BMI FOLLOW of Medici ne UP PLAN] Future Scheduled ZOSTER VACCINE (1 of [employer] Test 2) [code = ZOSTER of Medicin e VACCINE (1 of 2)] Future Scheduled TETANUS SHOT (ADULT) [employer] Test [code = TETANUS SHOT of Medi cine (ADULT)] Future Scheduled FLU VACCINE > 6 [facility] C ollege Test MONTHS [code = FLU of Medici ne VACCINE > 6 MONTHS] Future Scheduled COLON CANCER [facility] Test SCREENING: of Medicine COLONOSCOPY [code = COLON CANCER SCREENING: COLONOSCOPY] Future Scheduled COLONOSCOPY W MAC GI 1 Occurrences [employer] Test DEPT [code = 90965] starting of Medic ine 02/04/2019 until 08/07/2019 Encounters Start End Encounter Admission Attending Care Care Encounter Source Date/Time Date/Time Type Type Clinicians Facility Department ID 2020-02-23 Inpatient AGUSTIN AYALA Transplant [id number] [facility] 16:04:00 TEODORA 2022-08-06 2022-08-06 Outpatient [facility] [id number] [place] 00:00:00 00:00:00 [facility] 2022-07-16 2022-07-16 Telephone Nena [facility] [id number] [facility] 00:[facility] 00[facility]00:00 [facility] 2022-07-16 2022-07-16 Telephone Nena [facility] [id number] 00:00[facility]00 00:00:00 [facility] 2022-07-16 2022-07-16 Orders Gianluca [facility] [id number] 00:00:00 00:00:00 Only Ann [facility] 2022-07-13 2022-07-13 [facility] [id number] [place] 14:33:10 15:42:36 [facility] 2022-07-13 2022-07-13 Office [facility] [id number] Jhonatan 14:15:00 15:42:36 Visit [facility] 2022-07-13 2022-07-13 Outside Blake [facility] [id number] [facility] [address] 00:00:00 00:00:00 Orders Diane Hui [facility] 2022-05-21 2022-05-21 Office Roman Myers [facility] [id number] [id number] [facility] 13:40:00 16:36:49 Visit Nestor AMBULATOR [id number] [place] [id number] [id number] [facility] michaela 335 e 2022-05-01 2022-05-01 [facility] [id number] [id number] 00:[facility]00 00:00:00 [facility] 2022-05-01 2022-05-01 [facility] [id number] 00:00[facility]00 00:00:00 [facility] 2022-04-30 2022-04-30 Nadine Hough [facility] [id number] 00:00:00 00:00:00 Only [facility] 2022-04-30 2022-04-30 Nadine Hough [facility] [id number] 00:00:00 00:00:00 Only [facility] 2022-04-13 2022-04-13 Outpatient [facility] [id number] [place] 00:00:00 00:00:00 Health 2022-03-19 2022-03-19 [facility] [id number] 00:00[facility]00 00:00:00 [facility] 2022-03-19 2022-03-19 Telephone [facility] [id number] 00:00[facility]00 00:00:00 [facility] 2022-02-06 2022-02-06 [facility] [id number] 00:00[facility]00 00:00:00 [facility] 2022-02-06 2022-02-06 [facility] [id number] 00:00[facility]00 00:00:00 [facility] 2022-02-05 2022-02-05 Office Roman Myers [facility] [id number] [id number] [facility] 13:00:00 13:36:22 Visit Nestor AMBULATOR [id number] [facility] [id number] [id number] [facility] michaela 335 e 2022-01-30 2022-01-30 Abstract Tyron [facility] [id number] 00:00:00 00:00:00 [facility] 2022-01-30 2022-01-30 Abstract Tyron [facility] [id number] 00:00:00 00:00:00 [facility] 2022-01-16 2022-01-16 [facility] [id number] 10:15:00 23:59:[address] [facility] 2022-01-16 2022-01-16 [facility] [id number] 10:15:00 23:59:[address] [facility] 2022-01-16 2022-01-16 Office Pb [facility] [id number] [facility] 10:40:00 11:00:00 Visit [facility] 2022-01-16 2022-01-16 Office Pb [facility] [id number] 10:40:00 11:00:00 Visit [facility] 2022-01-16 2022-01-16 [facility] [id number] 07:52:45 10:14:[address] [facility] 2022-01-16 2022-01-16 [facility] July Hennessy [facility] [id number] 07:52:45 10:14:[address] [facility] 2022-01-16 2022-01-16 [facility] [id number] 07:52:35 10:14:[address] [facility] 2022-01-16 2022-01-16 [facility] July Hennessy [facility] [id number] 07:52:35 10:14:[address] [facility] 2021-12-29 2021-12-29 Orders Sinwilfred, [facility] [id number] 00:00:00 00:00:00 Only [facility] 2021-12-29 2021-12-29 Orders Sinwilfred, [facility] [id number] 00:00:00 00:00:00 Only [facility] 2021-12-21 2021-12-21 Telephone Daniel, [facility] [id number] 00:00:00 00:00:00 [facility] 2021-12-21 2021-12-21 Telephone Donnywilfred, [facility] [id number] [id number] 00:00:00 00:00:00 [facility] 2021-12-11 2021-12-11 [facility] [id number] 00:00:00 00:00:00 [facility] 2021-12-11 2021-12-11 Telephone Gianluca, [facility] [id number] 00:00:00 00:00:00 [facility] 2021-12-01 2021-12-01 Orders Grey, [facility] [id number] 00:00:00 00:00:00 Only [facility] 2021-12-01 2021-12-01 Refill Daniel, [facility] [id number] 00:00:00 00:00:00 [facility] 2021-12-01 2021-12-01 Telephone Daniel [facility] [id number] 00:00:00 00:00:00 [facility] 2021-12-01 2021-12-01 Orders Que [facility] [id number] 00:00:00 00:00:00 Only [facility] 2021-12-01 2021-12-01 Refill Sintuprenardt, [facility] [id number] 00:00:00 00:00:00 [facility] 2021-12-01 2021-12-01 Telephone Sintuprenardt, [facility] [id number] 00:00:00 00:00:00 [facility] 2021-11-06 2021-11-06 Refill Sintuphant, [facility] [id number] 00:00:00 00:00:00 [facility] 2021-11-06 2021-11-06 Refill Sintuphant, [facility] [id number] 00:00:00 00:00:00 [facility] 2021-08-28 2021-08-28 [facility] [id number] 11:28:15 23:59:00 Encounter , [facility] 2021-08-28 2021-08-28 [facility] [id number] 11:28:15 23:59:00 Encounter , [facility] 2021-08-17 2021-08-17 Outside Christiano See [facility] [id number] 00:00:00 00:00:00 Orders [facility] 2021-08-17 2021-08-17 Outside Christiano See [facility] [id number] 00:00:00 00:00:00 Orders [facility] 2021-08-16 2021-08-16 [facility] [id number] 23:59:00 23:59:00 Encounter , [facility] 2021-08-16 2021-08-16 [facility] [id number] [facility] [facility] St 23:59:00 23:59:00 Encounter , [facility] 2021-08-16 2021-08-16 Outpatient [facility] SLE [id number] SLEH 00:00:00 00:00:00 , CYRUS 2021-08-16 2021-08-16 Outpatient [facility] [id number] SLE 00:00:00 00:00:00 2021-08-07 2021-08-07 Office ROMAN [facility]ERS [facility] [id number] [id number] [facility] 08:33:16 10:48:05 Visit AMBULATOR [id number] College Y 0.2.7.2.686 [id number] Medi michaela 335 e 2021-06-26 2021-06-26 [facility] [id number] [facility] 00:00:00 00:00:00 [facility] 2021-06-09 2021-06-09 Telephone [facility] [id number] [facility] 00:00:00 00:00:00 [facility] 2021-06-09 2021-06-09 Refill [facility] [id number] [facility] 00:00:00 00:00:00 [facility] 2021-05-18 2021-05-18 Outpatient [facility] [id number] [facility] 12:31:58 23:59:00 [facility] 2021-05-05 2021-05-05 Outpatient JODIE, [facility] [id number] [place] 13:22:20 15:04:33 [facility] 2021-04-20 2021-04-20 Outpatient [facility] [id number] [facility] 13:12:08 23:59:00 [facility] 2021-03-27 2021-03-27 Outpatient ZULEMA, [facility] [id number] [place] 14:08:39 14:48:51 [facility] 2021-03-21 2021-03-21 Outpatient [facility] [id number] [facility] 13:47:09 23:59:00 [facility] 2021-03-17 2021-03-17 Outpatient EMILY, [facility] [id number] [place] 10:33:46 14:07:00 [facility] 2021-03-17 2021-03-17 Outpatient EMILY, [facility] [id number] [place] 00:00:00 00:00:00 [facility] 2021-03-17 2021-03-17 Letter [facility], [facility] [id number] Univers 00:00:00 00:00:00 (Out) [facility] [id number] it y of Urgent Care [place] 4.2.7.2.686 [facility] [id number] [address] Medical Office Building 2021-03-16 2021-03-16 Letter DENILSON Farrell 1.2.840.114 [id number] Univers 00:00:00 00:00:00 (Out) Evita DURANT [id number] it y of [facility] [id number] Parish as [id number] [address] 2021-03-15 2021-03-[address] [facility] [id number] Univers 16:00:00 16:00:00 RUPINDER velazquez [facility] 2021-03-14 2021-03-14 Outpatient JULY HENNESSY SLE [id number] [facility] 00:00:00 00:00:00 2021-03-14 2021-03-14 Outpatient JULY HENNESSY SLELuz SLE [id number] [facility] 00:00:00 00:00:00 2021-03-14 2021-03-14 Outpatient JULY HENNESSY SLE [id number] SLEH 00:00:00 00:00:00 2021-03-14 2021-03-14 Outpatient JULY DUTTA [facility]H SLEH [id number] [facility]H 00:00:00 00:00:00 2021-03-14 2021-03-14 Outpatient GINNY SLE SLE [id number] [facility]H 00:00:00 00:00:00 ON LICENSE OF [facility] 2021-03-10 2021-03-10 Outpatient CRISTINAFEIN, [facility] [id number] [place] 00:00:00 00:00:00 [facility] 2021-02-28 2021-02-28 Outpatient JULY HENNESSY SLELuz SLEH [id number] SLEH 00:00:00 00:00:00 2021-02-28 2021-02-28 Outpatient GINNY SLEH SLEH [id number] [facility]H 00:00:00 00:00:00 ON LICENSE OF [facility] 2021-02-28 2021-02-28 Outpatient EL JULY HENNESSY SLEH SLEH [id number] [facility]H 00:00:00 00:00:00 2021-02-28 2021-02-28 Outpatient JULY HENNESSY SLEH SLEH [id number] SLEH 00:00:00 00:00:00 2021-02-28 2021-02-28 Outpatient GINNY SLEH SLEH [id number] [facility]H 00:00:00 00:00:00 ON LICENSE OF [facility] 2021-02-28 2021-02-28 Outpatient EL JULY HENNESSY SLEH SLEH [id number] SLEH 00:00:00 00:00:00 2021-02-21 2021-02-21 Outpatient [facility] [id number] [place] [address] 13:40:55 23:59:00 Bernadette 2021-02-14 2021-02-14 Outpatient SLEH SLEH [id number] [facility]H 00:00:00 00:00:00 2021-02-14 2021-02-14 Outpatient EL SLEH SLEH [id number] SLEH 00:00:00 00:00:00 2021-02-14 2021-02-14 Outpatient GINNY, SLEH SLEH [id number] SLEH 00:00:00 00:00:00 ON LICENSE OF [facility] 2021-02-13 2021-02-13 Outpatient EL SLEH SLEH [id number] [facility]H 00:00:00 00:00:00 2021-02-10 2021-02-10 Outpatient [facility] [id number] [place] 00:00:00 00:00:00 [facility] 2021-02-10 2021-02-10 Outpatient [facility] [id number] [place] 00:00:00 00:00:00 Health 2021-02-02 2021-02-02 Out[place] [id number] [place] 00:00:00 00:00:00 [facility] 2021-02-02 2021-02-02 Outpatient [facility] [id number] [place] 00:00:00 00:00:00 Health 2021-02-01 2021-02-01 Outpatient [place] [id number] [place] 00:00:00 00:00:00 [facility] 2021-01-31 2021-01-31 [facility] [id number] SLE 00:00:00 00:00:00 JERILYN 2021-01-24 2021-01-24 Outpatient [facility] [id number] [facility] 13:25:47 23:59:00 Bernadette 2021-01-24 2021-01-24 [facility] [id number] SLE 00:00:00 00:00:00 2021-01-23 2021-01-23 Outpatient FAITH, MARIZOL [facility] [id number] [place] 12:55:10 15:19:16 Health 2021-01-23 2021-01-23 Outpatient [facility] [id number] [place] 00:00:00 00:00:00 [facility] 2021-01-23 2021-01-23 [facility] [id number] [place] 00:00:00 00:00:00 [facility] 2021-01-18 2021-01-18 [facility] [id number] [place] 11:05:12 11:39:09 [facility] 2021-01-16 2021-01-16 Outpatient AGUSTIN NASCIMENTO SLE [id number] SLE 00:00:00 00:00:00 JERILYN 2021-01-06 2021-01-06 Outpatient DOMI [facility] [id number] [place] 07:00:00 14:50:00 Health 2021-01-06 2021-01-06 Outpatient [facility] [id number] [place] 00:00:00 00:00:00 [facility] 2021-01-05 2021-01-05 Outpatient SLEH SLE [id number] SLE 00:00:00 00:00:00 2020-12-30 2020-12-30 [facility] [id number] [place] 07:14:23 10:09:43 [facility] 2020-12-30 2020-12-30 [facility] [id number] [place] 00:00:00 00:00:00 [facility] 2020-12-29 2020-12-29 Outpatient [facility] SLE [id number] SLE 00:00:00 00:00:00 JERILYN 2020-12-27 2020-12-27 Outpatient [facility] [id number] [facility] 13:08:48 23:59:00 [facility] 2020-12-27 2020-12-27 Outpatient BEVERLY [facility] [id number] [place] 00:00:00 00:00:00 [facility] 2020-12-26 2020-12-26 Outpatient BRETT [facility] [id number] [place] 09:46:32 10:22:52 , [facility] 2020-11-30 2020-11-30 Outpatient [place] [id number] [place] 09:54:29 10:55:52 [facility] 2020-11-24 2020-11-24 Outpatient CHESTER SLE SLE [id number] SLE 00:00:00 00:00:00 2020-11-16 2020-11-16 Outpatient [facility] [id number] [place] 00:00:00 00:00:00 [facility] 2020-11-14 2020-11-14 Outpatient [facility] [id number] [place] 00:00:00 00:00:00 [facility] 2020-11-09 2020-11-09 Outpatient CHESTER HERNANDEZ SLELuz Transplant [id number] SLE 19:50:00 19:50:00 TEODORA 2020-10-17 2020-10-17 Office [facility] 1.2.840.114 [id number] [facility] 09:47:48 16:38:46 Visit AMBULATOR 350.1.13.21 College Y 0.2.7.2.686 of [id number] [facility] michaela 335 e 2020-10-17 2020-10-17 Office Roman Myers 1.2.840.114 [id number] 09:47:48 16:38:46 Visit Nestor AMBULATOR 350.1.13.21 [place] Y 0.2.7.2.686 [id number] 2020-10-12 2020-10-12 [facility]patient [facility] [id number] [place] 14:56:37 17:12:47 [facility] 2020-10-12 2020-10-12 Out[facility] [id number] [place] 00:00:00 00:00:00 [facility] 2020-09-25 2020-09-25 Emergency ER SLE Emergency [id number] SLEH 01:38:00 01:38:00 2020-09-16 2020-09-16 Outpatient EL SLEH SLEH [id number] SLEH 00:00:00 00:00:00 2020-08-23 2020-08-23 Outpatient EL SLEH SLEH [id number] SLEH 00:00:00 00:00:00 2020-08-02 2020-08-02 Outpatient EL SLEH SLEH [id number] [facility]H 00:00:00 00:00:00 2020-07-29 2020-07-29 Emergency ER SLE Emergency [id number] SLEH 10:01:00 10:01:00 2020-07-26 2020-07-26 Office MAGI Galvan 1.2.840.[id number] [place] [address] 09:42:55 10:28:31 Visit Rosi AMBULATOR 350.1.13.21 [place] Jory-Kathie Y 0.2.7.2.686 of [id number] [facility] michaela 800 e 2020-07-26 2020-07-26 Office MAGI Galvan 1.2.840.114 [id number] 09:42:55 10:28:31 Visit Rosi AMBULATOR 350.1.13.21 Jory-Kathie Y 0.2.7.2.686 [id number] 2020-07-14 2020-07-14 Outpatient EL SLEH SLEH [id number] SLEH 00:00:00 00:00:00 2020-07-06 2020-07-06 Outpatient EL SLEH SLEH [id number] SLEH 00:00:00 00:00:00 2020-07-03 2020-07-03 Emergency ER SLEH Emergency [id number] SLEH 11:03:00 11:03:00 2020-06-20 2020-06-20 Emergency ER SLE Emergency [id number] SLEH 17:49:00 17:49:00 2020-06-17 2020-06-17 Outpatient SLEH SLEH [id number] SLEH 00:00:00 00:00:00 2020-06-17 2020-06-17 Outpatient CHESTER CHANEY SLEH SLEH [id number] SLEH 00:00:00 00:00:00 DAVE 2020-06-10 2020-06-10 Outpatient CHESTER CHANEY SLEH SLEH [id number] SLEH 00:00:00 00:00:00 DAVE 2020-06-08 2020-06-08 Outpatient RITU SLEH SLEH [id number] SLEH 00:00:00 00:00:00 DAVE 2020-06-07 2020-06-07 Outpatient CHESTER CHANEY SLEH SLEH [id number] SLEH 00:00:00 00:00:00 DAVE 2020-06-06 2020-06-06 Office Roman Myers 1.2.840.114 [id number] [facility] 09:14:41 10:09:35 Visit Nestor AMBULATOR 350.1.13.21 [place] Y 0.2.7.2.686 of [id number] [place] [address] e 2020-06-06 2020-06-06 Office Roman Myers 1.2.840.114 [id number] 09:14:41 10:09:35 Visit Nestor AMBULATOR 350.1.13.21 [place] Y 0.2.7.2.686 [id number] [facility] 2020-05-20 2020-05-20 Outpatient EL FABIOLA, SLEH SLEH [id number] SLEH 00:00:00 00:00:00 [facility] 2020-05-13 2020-05-13 Outpatient EL SLEH SLEH [id number] SLEH 00:00:00 00:00:00 2020-04-24 2020-04-24 Emergency ER SLEH Emergency [id number] SLEH 16:46:00 16:46:00 2020-04-19 2020-04-19 Outpatient CHRISTIANO SEE SLEH SLEH [id number] SLEH 00:00:00 00:00:00 2020-04-19 2020-04-19 Outpatient CHESTER GREEN, SLEH SLEH [id number] SLEH 00:00:00 00:00:00 AARON 2020-04-19 2020-04-19 Outpatient EL SLEH SLEH [id number] SLEH 00:00:00 00:00:00 2020-04-19 2020-04-19 Outpatient EL JOVAN, SLEH SLEH [id number] SLEH 00:00:00 00:00:00 PRATEEK 2020-04-15 2020-04-15 Outpatient CHRISTIANO SEE SLEH SLEH [id number] SLEH 00:00:00 00:00:00 2020-04-15 2020-04-15 Outpatient EL PETER, SLEH SLEH [id number] SLEH 00:00:00 00:00:00 AARON 2020-04-14 2020-04-14 Outpatient EL PETER, SLEH SLEH [id number] SLEH 00:00:00 00:00:00 AARON 2020-04-07 2020-04-07 Outpatient EL PETER, SLEH SLEH [id number] SLEH 00:00:00 00:00:00 AARON 2020-04-07 2020-04-07 Outpatient PETER, SLEH SLEH [id number] SLEH 00:00:00 00:00:00 AARON 2020-04-07 2020-04-07 Outpatient PETER, SLEH SLEH [id number] SLEH 00:00:00 00:00:00 AARON 2020-04-06 2020-04-06 Outpatient SLEH SLEH [id number] SLEH 00:00:00 00:00:00 2020-04-06 2020-04-06 Outpatient PETER, SLEH SLEH [id number] SLEH 00:00:00 00:00:00 AARON 2020-04-06 2020-04-06 Outpatient PETER SLEH SLEH [id number] SLEH 00:00:00 00:00:00 AARON 2020-04-06 2020-04-06 Outpatient EL PETER SLEH SLEH [id number] SLEH 00:00:00 00:00:00 AARON 2020-04-06 2020-04-06 Outpatient SLEH SLEH [id number] [facility]H 00:00:00 00:00:00 2020-04-06 2020-04-06 Outpatient SLEH SLEH [id number] SLEH 00:00:00 00:00:00 2020-04-06 2020-04-06 Outpatient SLEH SLEH [id number] [facility]H 00:00:00 00:00:00 2020-04-06 2020-04-06 Outpatient SLEH SLEH [id number] [facility]H 00:00:00 00:00:00 2020-04-06 2020-04-06 Outpatient SLEH SLEH [id number] SLEH 00:00:00 00:00:00 2020-04-06 2020-04-06 Outpatient SLEH SLEH [id number] [facility]H 00:00:00 00:00:00 2020-03-09 2020-03-09 Outpatient EL SLEH SLEH [id number] [facility]H 00:00:00 00:00:00 2020-02-29 2020-02-29 Outpatient EL SLEH SLEH [id number] SLEH 00:00:00 00:00:00 2020-02-23 2020-02-23 Outpatient EL SLEH SLEH [id number] SLEH 00:00:00 00:00:00 2020-02-23 2020-02-23 Outpatient JULY HENNESSY SLEH SLEH [id number] SLEH 00:00:00 00:00:00 2020-02-23 2020-02-23 Outpatient SLEH SLEH [id number] SLEH 00:00:00 00:00:00 2020-02-23 2020-02-23 Outpatient EL SLEH SLEH [id number] SLEH 00:00:00 00:00:00 2020-02-03 2020-02-03 Outpatient EL SLEH SLEH [id number] [facility]H 00:00:00 00:00:00 2020-01-26 2020-01-26 Outpatient EL SLEH SLEH [id number] SLEH 00:00:00 00:00:00 2020-01-05 2020-01-05 Outpatient EL SLEH SLEH [id number] SLEH 00:00:00 00:00:00 2019-12-31 2019-12-31 Outpatient EL SLEH SLEH [id number] [facility]H 00:00:00 00:00:00 2019-12-14 2019-12-14 Outpatient CONTRERAS, SLEH SLEH [id number] SLEH 00:00:00 00:00:00 PARXANN 2019-12-10 2019-12-10 Emergency ER SLEH Emergency [id number] SLEH 18:43:00 18:43:00 2019-12-01 2019-12-01 Outpatient EL SLEH SLEH [id number] SLEH 00:00:00 00:00:00 2019-11-05 2019-11-05 Outpatient CHESTER GREEN SLELuz SLEH [id number] SLEH 08:39:08 08:39:08 AARON 2019-11-05 2019-11-05 Outpatient SLEH SLEH [id number] SLEH 00:00:00 00:00:00 [id number] 2019-10-05 2019-10-05 Outpatient SLEH SLEH [id number] SLEH 00:00:00 00:00:00 [id number] 2019-09-17 2019-09-17 Outpatient SLEH SLEH [id number] SLEH 00:00:00 00:00:00 [id number] 2019-09-09 2019-09-09 Outpatient SLEH SLEH [id number] SLEH 00:00:00 00:00:00 [id number] 2019-09-02 2019-09-02 Outpatient CHRISTIANO CABALLERO SLEH SLEH [id number] SLEH 00:00:00 00:00:00 2019-08-31 2019-08-31 Outpatient SLEH SLEH [id number] SLEH 00:00:00 00:00:00 [id number] 2019-08-26 2019-08-26 Outpatient CHRISTIANO CABALLERO [facility] [id number] [facility] 00:00:00 00:00:00 2019-06-03 2019-06-03 Outpatient EL [facility] [id number] [facility] 00:00:00 00:00:00 2019-02-04 2019-02-04 Office MAGI Serrano [id number] [facility] 13:15:13 13:45:13 Visit Jordi AMBULATOR [id number] [facility] [id number] of [id number] Medi michaela 325 e 2019-02-04 2019-02-04 Office MAGI Serrano [id number] 13:15:13 13:45:13 Visit Jordi AMBULATOR [id number] [facility] 0.2.7.2.686 [id number] Results Test Description Test Time Test Comments Results Result Comments Source TACROLIMUS LEVEL 2022-05-22 19:17:36 Test Item Value Reference Range Interpretation Comme nts TACROLIMUS BLOOD See_Comment L The therap eutic range for Tacrolimus (test code = (Prograf) rosendo d beestablished for each 09829-5) patient individ ually based on clinicalevaluat ion. Methodology is Ephraim Willem Electroch emiluminescenceImmunoassay. Unless Otherwis e Indicated, All Testing Performed At: [facility], [address] [place] [address] Laborator y Director: Dalton Pan M.D. CLIA Number [id number] [employer] Accreditation N o. 81061-22 [Automated message] The sy stem which generated this result transmit abdullahi reference range: 5.0 - 20.0 NG/ML. The reference range was not used to interpr et this result as normal/abnormal . Lab Interpretation Abnormal (test code = 05583-4) [facility] W/AUTO DIFF WITH [id number] 15:50:14 Test Item Value Reference Range Interpretation Comments WHITE BLOOD CELL COUNT See_Comment [Aut omated message] (test code = 45234-5) The sy stem which generated this result transmitted ref erence range: 3.5 - 11 .0 K/UL. The refer ence range was not u sed to interpret this result as normal/abnor mal. RED BLOOD CELL COUNT See_Comment L [Autom ated message] (test code = 63344-3) The sy stem which generated this result [...] as normal/abnor mal. HEMATOCRIT (test code = 24.6 % 40.0-51.0 L 58934-8) MEAN CORPUSCULAR VOLUME 98.0 fL 80.0-99.0 (test code = 25666-2) MEAN CORPUSCULAR 34.7 PG 25.0-33.0 H HEMOGLOBIN (test code = 73715-4) MEAN CORPUSCULAR See_Comment [Automated message] HEMOGLOBIN CONC (test The sy stem which code = 36605-5) generated th is result transmitted ref erence range: 31.0 - 3 6.0 G/DL. The refer ence range was not u sed to interpret this result as normal/abnor mal. RED CELL DISTRIBUTION 13.6 % 11.5-15.0 WIDTH (test code = 94029-9) NEUTROPHILS % (test 69.2 % AUTOMAT ED code = 49065-0) DIFFERENTIAL CONFIRMED WITH MANUAL SLI DE REVIEW. LYMPHOCYTES % (test 15.3 % code = 09196-3) MONOCYTES % (test code 8.1 % = 83713-1) EOSINOPHILS % (test 5.7 % code = 54025-3) BASOPHILS % (test code 1.2 % = 86999-6) IMMATURE GRANULOCYTES 0.5 % (test code = 24154-8) NUCLEATED RBC'S See_Comment [Automated message] MYELOPEROX STAIN (test The s ystem which code = 83369-7) generated th is result transmitted ref erence range: 0.00 - 0 .11 K/UL. The refer ence range was not u sed to interpret this result as normal/abnor mal. PLATELET COUNT (test See_Comment L [Autom ated message] code = 15400-7) The system w hich generated this result transmitted ref erence range: 130 - 40 0 K/UL. The reference r stella was not used to interpret this result as normal/abnor mal. NEUTROPHILS ABSOLUTE See_Comment [Autom ated message] COUNT (test code = The syste m which 52938-0) generated this result transmitted ref erence range: 1.50 - 7 .50 K/UL. The refer ence range was not u sed to interpret this result as normal/abnor mal. LYMPHOCYTES ABSOLUTE See_Comment L [Autom ated message] COUNT (test code = The syste m which 45872-9) generated this result transmitted ref erence range: 1.00 - 4 .00 K/UL. The refer ence range was not u sed to interpret this result as normal/abnor mal. MONOCYTES ABSOLUTE See_Comment [Automat ed message] COUNT (test code = The syste m which 13011-4) generated this result transmitted ref erence range: 0.20 - 1 .00 K/UL. The refer ence range was not u sed to interpret this result as normal/abnor mal. BASOPHILS ABSOLUTE See_Comment [Automat ed message] COUNT (test code = The syste m which 21065-6) generated this result transmitted ref erence range: 0.00 - 0 .20 K/UL. The refer ence range was not u sed to interpret this result as normal/abnor mal. IMMATURE GRANS (ABS) See_Comment [Autom ated message] (test code = 9987) The syste m which generated this result transmitted ref erence range: 0.00 - 0 .10 K/UL. The refer ence range was not u sed to interpret this result as normal/abnor mal. Comments (test code = (NOTE) FEW E LLIPTOCYTES 09845-1) SLIGHT POIKILOC YTOSIS FEW TEAR DROP C ELLS PLATELETS APPEA R MARKEDLY DECREA SED Unless Otherwis e Indicated, All Testing Performed At: [facility], [address] [place] [address], [place] [address] Laborator y Director: Dalton Pan M.D. CLIA Number [id number] [employer] [place]. [id number] Lab Interpretation Abnormal (test code = 70133-3) [facility] [id number] 12:01:26 Test Item Value Reference Range Interpretation Comments GLUCOSE (test code = See_Comment H [Autom ated message] 2345-7) The system [employer] generated this result transmitted ref erence range: [...] H [Au tomated message] 2160-0) The system [employer] generated this result transmitted ref erence range: 0.80 - 1 .40 MG/DL. The refe rence range was not u sed to interpret this result as normal/abnor mal. EGFR (test code = See_Comment L [Automate d message] 78201-9) The system [employer] generated this result transmitted ref erence range: >60 ML/MIN/1.73. Th e reference range was not used to int erpret this result as normal/abnormal . BUN/CREAT RATIO (test See_Comment [Auto mated message] code = 3097-3) The system [employer] [facility] generated this result transmitted ref erence range: 6 - 28 R ATIO. The reference r stella was not used to interpret this result as normal/abnor mal. SODIUM (test code = See_Comment H [Automa abdullahi message] 2951-2) The system [employer] generated this result transmitted ref erence range: 133 - 14 6 MEQ/L. The refe rence range was not u sed to interpret this result as normal/abnor mal. POTASSIUM (test code = See_Comment [Aut omated message] 1753-3) The system [employer] generated this result transmitted ref erence range: 3.5 - 5. 4 MEQ/L. The refe rence range was not u sed to interpret this result as normal/abnor mal. CHLORIDE (test code = See_Comment H [Auto mated message] 1595-0) The system [employer] generated this result transmitted ref erence range: 95 - 107 MEQ/L. The reference r stella was not used to interpret this result as normal/abnor mal. CO2 (test code = See_Comment [Automated message] 1962-8) The system [facility] [employer] generated this result transmitted ref erence range: 19 - 31 MEQ/L. The reference r stella was not used to interpret this result as normal/abnor mal. CALCIUM (test code = See_Comment [Autom ated message] 48933-0) The system [facility] generated this result transmitted ref erence range: 8.5 - 10 .5 MG/DL. The refe rence range was not u sed to interpret this result as normal/abnor mal. PROTEIN TOTAL (test See_Comment L RESULTS RECHECKED AND code = 2885-2) VERIFIED [Aut omated message] The sy stem which generated this result transmit abdullahi reference range : 6.1 - 8.3 G/DL. The reference range was not used to int erpret this result as normal/abnormal . ALBUMIN (test code = See_Comment [Autom ated message] 52278-8) The system [facility] generated this result transmitted ref erence range: 3.5 - 5. 2 G/DL. The reference r stella was not used to interpret this result as normal/abnor mal. GLOBULINS, SERUM, TOTAL (NOTE) See_Comment JAMIE BLE TO CALCULATE (test code = 66293-6) [Autom ated message] The system [facility] [employer] generated this result transmitted ref erence range: 1.9 - 3. 7 G/DL. The reference r stella was not used to interpret this result as normal/abnor mal. A/G RATIO (test code = See_Comment H [Aut omated message] 1759-0) The system [facility] generated this result transmitted ref erence range: 1.0 - 2. 6 RATIO. The refe rence range was not u sed to interpret this result as normal/abnor mal. BILIRUBIN TOTAL (test See_Comment H [Auto mated message] code = 1974-2) The system [facility] generated this result transmitted ref erence range: <=1.2 MG /DL. The reference r stella was not used to interpret this result as normal/abnor mal. ALKALINE PHOSPHATASE 157 U/L 40-123 H (test code = 6768-6) AST (SGOT) (test code = 21 U/L 9-50 1920-8) ALT (SGPT) (test code = 18 U/L 5-50 Unl ess Otherwise 1744-2) Indicated, All Testing Performed At: [facility], [address] [place] [address] Laborator y Director: Dalton Pan M.D. CLIA Number [id number] [employer] Accreditation N o. Lab Interpretation Abnormal (test code = 84266-3) [facility]+[id number] 12:01:26 Test Item Value Reference Range Interpretation Comments IRON (test code = See_Comment [Automate d message] 2498-4) The system [employer] generated this result transmitted ref erence range: 59 - 158 UG/DL. The reference r stella was not used to interpret this result as normal/abnor mal. UIBC (test code = See_Comment L [Automate d message] 2501-5) The system [employer] generated this result transmitted ref erence range: 112 - 34 7 UG/DL. The refe rence range was not u sed to interpret this result as normal/abnor mal. TIBC (test code = See_Comment [Automate d message] 19841-8) The system [employer] generated this result transmitted ref erence range: 250 - 45 0 UG/DL. The refe rence range was not u sed to interpret this result as normal/abnor mal. IRON SATURATION % (test 59 % 20-50 H Unl ess Otherwise code = 2502-3) Indicated, Al l Testing Performed At: [facility], [address] [place] [address], [place] [address] Laborator y Director: Dalton Pan M.D. CLIA Number [id number] [employer] Accreditation N o. Lab Interpretation Abnormal (test code = 10485-2) [facility] [id number] 12:01:26 Test Item Value Reference Range Interpretation Comments URIC ACID (test code = See_Comment H Unle ss Otherwise 3084-1) Indicated, All Testing Perform ed At: [facility], [address] [place] [address], [place] [address] Laborator y Director: Dalton Pan M.D. CLIA Number [id number] [employer] [place]. [id number] [Autom ated message] The sy stem which generated this result transmit abdullahi reference range : 3.7 - 8.0 MG/DL. Th e reference range was not used to int erpret this result as normal/abnormal . Lab Interpretation (test Abnormal code = 27440-2) [facility] H[id number] 10:28:39 Test Item Value Reference Range Interpretation Comments PHOSPHORUS (test code = See_Comment Un less Otherwise 2777-1) Indicated, All Testing Performed At: [facility], [address] [place] [id number] [place] [address] Director: Dalton Pan M.D. CLIA Number [id number] [employer] [place]. 50[address]-83 [Autom ated message] The sy stem which generated this result transmit abdullahi reference range : 2.5 - 4.5 MG/DL. The reference range was not u sed to interpret this result as normal/abnormal . [facility], [facility]PLE[facility] W/REFLEX TO [id number] 09:21:22 Test Item Value Reference Range Interpretation Comments COLOR UA (test code = DARK YELLOW YELLOW-STRAW A 5778-6) CLARITY UA (test code CLEAR CLEAR = 5767-9) SPECIFIC GRAVITY UA 1.005-1.035 (test code = 5811-5) LEUKOCYTE ESTERASE UA 1+ NEGATIVE A (test code = 5799-2) NITRITE UA (test code NEGATIVE NEGATIVE = 5802-4) PH UA (test code = 5.0-9.0 5803-2) PROTEIN UA (test code 1+ NEGATIVE A = 76379-1) GLUCOSE UA (test code NEGATIVE NEGATIVE = 5792-7) KETONES UA (test code NEGATIVE NEGATIVE = 5797-6) UROBILINOGEN UA (test See_Comment [Auto mated message] code = 64720-5) The system w hich generated this result transmit abdullahi reference range : <=2.0 MG/DL. Th e reference range was not used to interpret this result as normal/abnormal . BILIRUBIN UA (test NEGATIVE NEGATIVE code = 5770-3) OCCULT BLOOD UA (test NEGATIVE NEGATIVE code = 53932-5) WBC UA (test code = 10-15 See_Comment A [Automa abdullahi message] 61447-9) The system [employer] generated this result transmit abdullahi reference range : 0 - 5 /HPF. The reference range was not used to interpret this result as normal/abnormal . RBC UA (test code = 0-2 See_Comment [Automa abdullahi message] 57626-2) The system [employer] generated this result transmit abdullahi reference range : 0 - 5 /HPF. The reference range was not used to interpret this result as normal/abnormal . EPITHELIAL CELLS (test 0-5 See_Comment [Aut omated message] code = 75877-6) The system [employer] generated this result transmit abdullahi reference range : 0 - 5 /HPF. The reference range was not used to interpret this result as normal/abnormal . BACTERIA (test code = NONE SEEN NONE SEEN 21049-6) CRYSTALS (test code = PRESENT NONE SEEN A CALCI UM OXALATE 5782-8) CRYSTALS HYALINE CASTS (test TRACE NONE-TRACE Unless Otherwise code = 28342-0) Indicated, A ll Testing Perform ed At: [facility], [address] [place] [address] Laborator y Director: Dalton Pan M.D. IA Number [id number] [facility] [place] [id number] Lab Interpretation Abnormal (test code = 06468-0) [facility]BV Viral [id number] 15:26:29 Test Item Value Reference Range Interpretation Comments EBV Viral Negative or below the See_Comment [Auto mated Load (test linear range of the message] The code = 2559) assay (<500 IU /mL) system [employer] generated this result transmit abdullahi reference range : <500 - >5,000,000 IU/mL. The reference range was not used to interpret this result as normal/abnormal . LATRELL (test This assay was code = LATRELL) performed by real-time PCR for the detection of the Elina-Joyner virus (EBV) gene EBNA-1. The test is composed of (1) DNA extraction from patient specimen, and (2) real-time PCR amplification and detection with ATAR-2-qbjptrqi primers and probes. A well-conserved region of the EBNA-1 gene is targeted, along with an internal control sequence used to confirm PCR amplification. Asymptomatic carriers and viral genetic variation, among other factors, can affect the accuracy of nucleic acid testing; therefore, results should be interpreted in light of clinical data. This test was developed and its performance characteristics determined by the [facility] Pathology Department, Section of Molecular Pathology. It has not been cleared or approved by the U.S. Food and Drug Administration (FDA), since FDA approval is not required for clinical use of the test. Validation was done as required by The Clinical Laboratory Improvement Amendments of 1988. This assay was performed by real-time PCR for the detection of the Elina-Joyner virus (EBV) gene EBNA-1. The test is composed of (1) DNA extraction from patient specimen, and (2) real-time PCR amplification and detection with NPAK-2-pfgowtiz primers and probes. A well-conserved region of the EBNA-1 gene is targeted, along with an internal control sequence used to confirm PCR amplification. Asymptomatic carriers and viral genetic variation, among other factors, can affect the accuracy of nucleic acid testing; therefore, results should be interpreted in light of clinical data. This test was developed and its performance characteristics determined by the [facility] Pathology Department, Section of Molecular Pathology. It has not been cleared or approved by the U.S. Food and Drug Administration (FDA), since FDA approval is not required for clinical use of the test. Validation was done as required by The Clinical Laboratory Improvement Amendments of 1988. [facility] [id number] 15:26:29 Test Item Value Reference Range Interpretation Comments EBV Viral Negative or below the See_Comment [Auto mated Load (test linear range of the message] The code = 2559) assay (<500 IU /mL) system [facility] generated this result transmit abdullahi reference range : <500 - >5,000,000 IU/mL. The reference range was not used to interpret this result as normal/abnormal . LATRELL (test This assay was code = LATRELL) performed by real-time PCR for the detection of the Elina-Joyner virus (EBV) gene EBNA-1. The test is composed of (1) DNA extraction from patient specimen, and (2) real-time PCR amplification and detection with WEZF-7-izjazmqx primers and probes. A well-conserved region of the EBNA-1 gene is targeted, along with an internal control sequence used to confirm PCR amplification. Asymptomatic carriers and viral genetic variation, among other factors, can affect the accuracy of nucleic acid testing; therefore, results should be interpreted in light of clinical data. This test was developed and its performance characteristics determined by the [facility] Pathology Department, Section of Molecular Pathology. It has not been cleared or approved by the U.S. Food and Drug Administration (FDA), since FDA approval is not required for clinical use of the test. Validation was done as required by The Clinical Laboratory Improvement Amendments of 1988. This assay was performed by real-time PCR for the detection of the Elina-Joyner virus (EBV) gene EBNA-1. The test is composed of (1) DNA extraction from patient specimen, and (2) real-time PCR amplification and detection with VZIL-6-zwlhbtww primers and probes. A well-conserved region of the EBNA-1 gene is targeted, along with an internal control sequence used to confirm PCR amplification. Asymptomatic carriers and viral genetic variation, among other factors, can affect the accuracy of nucleic acid testing; therefore, results should be interpreted in light of clinical data. This test was developed and its performance characteristics determined by the [facility] Pathology Department, Section of Molecular Pathology. It has not been cleared or approved by the U.S. Food and Drug Administration (FDA), since FDA approval is not required for clinical use of the test. Validation was done as required by The Clinical Laboratory Improvement Amendments of 1988. [facility]AL [id number] 15:26:29 Test Item Value Reference Range Interpretation Comments EBV VIRAL LOAD - Negative or below See_Comment [Auto mated message] NEGATIVE (BEAKER) the linear range The sy stem which (test code = of the assay generated this 2559) (<500 IU /mL) result transmi tted reference range : <500 - >5,00 0,000 IU/mL. The refe rence range was not u sed to interpret th is result as normal/abnormal . This assay was performed by real-time PCR for the detection of the Elina-Joyner virus (EBV) gene EBNA-1. The test is composed of (1) DNA extraction from patient specimen, and (2) real-time PCR amplification and detection with DFRU-9-xgeeffff primers and probes. A well-conserved region of the EBNA-1 gene is targeted, along with an internal control sequence used to confirm PCR amplification. Asymptomatic carriers and viral genetic variation, among other factors, can affect the accuracy of nucleic acidtesting; therefore, results should be interpreted in light of clinical data.This test was developed and its performance characteristics determined by the [facility] Pathology Department,Section of Molecular Pathology. It has not been cleared or approved by the U.S. Food and Drug Administration (FDA), since FDA approval is not required for clinical use of the test. Validation was done as required by The Clinical Laboratory Improvement Amendments of 1988.This assay was performed by real-time PCR for the detection of the Elina-Joyner virus (EBV) gene EBNA-1. The test is composed of (1)DNA extraction from patient specimen, and (2) real- time PCR amplification and detection with IMIP-4-ydoxjprd primers and probes. A well-conserved region of the EBNA-1 gene is targeted, along with an internal control sequence used to confirm PCR amplification. Asymptomatic carriers and viral genetic variation, among other factors, can affect the accuracy of nucleic acid testing; therefore, results should be interpreted in light of clinical data.This test was developed and its performance characteristics determined by the [facility] Pathology Department, Section of Molecular Pathology.It has not been cleared or approved by the U.S. Food and Drug Administration (FDA), since FDA approval is not required for clinical use of the test. Validation was done as required by The Clinical Laboratory Improvement Amendments of 1988.CMV PCR, [id number] 16:08:49 Test Item Value Reference Range Interpretation Comments CMV VIRAL LOAD - Negative or below See_Comment [Auto mated message] NEGATIVE (BEAKER) the linear range The sy stem which [...] management of antiviral therapy. For treatment of CMV infection due to reactivation in transplant recipients, a threshold between 4,000 and 5,000 copies/mLis suggested. For treatment of primary CMV infection, a lower threshold can be used.CMV infection may also be monitored using weekly serial measurements. Serial measurements of CMV DNA viral load can be evaluated by identifying a 10-fold change, as [...] and its performance characteristics determined by the [facility] Pathol ogy Department, Section of Molecular Pathology. It has not been cleared or approved by the U.S. Foodand Drug Administration (FDA), since FDA approval is not required for clinical use of the test. Validation was done as required by The Clinical Laboratory Improvement Amendments of 1988.CT, CHEST, WITHOUT IV [id number] 14:39:00Referring: Dr. Diane Eastman/ [place] for Exam:- >s/p lung transplantReason for Exam:->evaluate for nodules/[facility] 1955 Sex: MFINAL REPORT EXAM: CT Chest WITHOUT contrastINDICATION: Unlisted Reason for Exams/p lung transplant on 01/17/2013evaluate for nodules/ANNA COMPARISON: Chest CT, 01/20/2019; chest x-ray, 02/28/2021 TECHNIQUE:Chest was scanned utilizing a multidetector helical scanner from the lung apexthrough the level of the adrenal glands without administration of IV contrast. Absence of intravenous contrast decreases sensitivity for detection of lymphadenopathy and vascular pathology. Coronal andsagittal reformations were obtained. Routine protocol was performed. IV CONTRAST: None COMPLICATIONS: None RADIATION DOSE: Total DLP: 130.00 mGy*cm Estimated effective dose: (DLP x 0.014 x size factor)mSv CTDIvol has been reviewed. It is below the limits set by the Radiation Protocol Committee (RPC).FINDINGS:Annotations given as (series/image number) LINES/ TUBES: None. LUNGS AND AIRWAYS: No pulmonary consolidation. No bronchiectasis or evidence for bronchial dilatation or bronchial wall thickening. Scarring or atelectasis at the lung bases is generally stable. A previously noted 4 mm subpleural nodule in the posterior left apex has resolved. There is a new linear 4 mm subpleural opacity in the posterior left lower lobe (series 2, image 57). PLEURA: There is mild pleural thickening in the posterior hemithoraces, slightly greater on the left. This is stable from last exam. No effusion or pneumothorax. HEART AND MEDIASTINUM: The thyroid gland is normal. No mediastinal, hilar or axillary lymphadenopathy. A few subcentimeter pretracheal nodes are stable and likely reactive. The heart is normal in size. There is no pericardial effusion. Unremarkable thoracic aorta with scattered calcified plaque. Main pulmonary artery measures 2.8 cm, normal. There are scattered coronary calcifications. UPPER ABDOMEN: Included portions of the unenhanced upper abdominal structures shows nodular contour of the liver compatible with cirrhosis. There is partial visualization of a TIPS stent, new since last exam. The spleen is enlarged. Previous small ascites has decreased and is now trace. Partially visualized ca lcifications likely gallstones. BONES: No acute or suspicious bony lesions. Wire sternotomy sutures again noted. SOFT TISSUES: Superficial surrounding soft tissue unremarkable. IMPRESSION: 1. No pulmonary consolidation. No evidence for bronchial dilatation, bronchial wall thickening or air trapping tospecifically suggest bronchiolitis obliterans. 2. A 4 mm subpleural nodule noted previously has resolved. A new 4 mm linear subpleural nodule is seen at the posterior left lung base. This may representmild atelectasis or subpleural scarring and attention on follow-up exam is suggested. 3. Cirrhotic hepatic morphology with partial visualization of TIPS stent which is new since previous exam. Splenomeg jackelyn. Previous small ascites has decreased and is now trace adjacent to the anterior aspect of the liver. Signed: Torres Martinez MDReport Verified Date/Time: 01/16/2022 14:39:07 Reading Location: [facility] Reading Room [address] [place] [address] OLIMUS [id number] 12:59:55 Test Item Value Reference Range Interpretation Comments TACROLIMUS BLOOD 4.2 ng/mL 10.0-20.0 L Test perfor med on Colon (BEAKER) (test code Architec t Immunoassay = 657) system with Chemiluminescen t Microparticle I mmunoassay (CMIA) technolo gy. Academic Advisor ID - ADMINHEMOGLOBIN [id number] 12:32:56 Test Item Value Reference Range Interpretation Comments HEMOGLOBIN A1C < % See_Comment [Automated m essage] ELECTROPHORESIS ([employer]) The system which (test code = 3811) generated this result transmitted ref erence range: <=5.6%. The reference range was not used to int erpret this result as normal/abnormal . "The A1c is measured using a NGSP-certified method. HbA1c value equal to or greater than 6.5% as thediagnosis cutoff for diabetes. An HbA1c value of 5.7- 6.4% indicates increased risk for diabetes (prediabetes)."Academic Advisor ID - ADM Urinalysis w/Microscopic + Reflex to [id number] 11:58:22 Test Item Value Reference Range Interpretation Comments Color, UA (test code Yellow = 5778-6) Clarity, UA (test Clear code = 5767-9) Specific Willits, UA 1.020 1.001-1.035 (test code = 5811-5) pH, UA (test code = 5.5 5.0-8.0 5803-2) Protein, UA (test Negative Negative code = 88179-3) Glucose, UA (test Negative Negative code = 365) Ketones, UA (test Negative Negative code = 2514-8) Bilirubin, UA (test Negative Negative code = 45283-3) Blood, UA (test code Negative Negative = 34143-3) Nitrite, UA (test Negative Negative code = 5802-4) Leukocytes, UA (test Small Negative A code = 5799-2) Urobilinogen, UA 0.2 mg/dL 0.2-1.0 (test code = 94476-9) RBC, UA (test code = 1 See_Comment [Autom ated 27925-7) message] The system which generated this result transmit abdullahi reference range : /HPF. The reference range was not used to interpret this result as normal/abnormal . WBC, UA (test code = 12 See_Comment [Autom ated 5821-4) message] The system which generated this result transmit abdullahi reference range : /HPF. The reference range was not used to interpret this result as normal/abnormal . Bacteria, UA (test None Seen code = 50165-5) Mucus (test code = Rare 8247-9) Squam Epithel, UA <1 See_Comment [Automate d (test code = 88262-7) messag e] The system which generated this result transmit abdullahi reference range : /HPF. The reference range was not used to interpret this result as normal/abnormal . Hyaline Casts, UA 1 See_Comment [Automate d (test code = 37297-7) messag e] The system which generated this result transmit abdullahi reference range : /LPF. The reference range was not used to interpret this result as normal/abnormal . Crystals, Urine (test None Seen code = 51498-5) Specimen Source (test code = 2795) LATRELL (test code = LATRELL) Academic Advisor ID - [auto]Academic Advisor ID - tech Lab Interpretation Abnormal (test code = 70900-3) [facility] Reflex to Culture 2022-01-16 11:58:22 Test Item Value Reference Range Interpretation Comments Color, UA (test code Yellow = 5778-6) Clarity, UA (test Clear code = 5767-9) Specific Willits, UA 1.020 1.001-1.035 (test code = 5811-5) pH, UA (test code = 5.5 5.0-8.0 5803-2) Protein, UA (test Negative Negative code = 08420-8) Glucose, UA (test Negative Negative code = 365) Ketones, UA (test Negative Negative code = 2514-8) Bilirubin, UA (test Negative Negative code = 23554-2) Blood, UA (test code Negative Negative = 60983-2) Nitrite, UA (test Negative Negative code = 5802-4) Leukocytes, UA (test Small Negative A code = 5799-2) Urobilinogen, UA 0.2 mg/dL 0.2-1.0 (test code = 97148-3) RBC, UA (test code = 1 See_Comment [Autom ated 00289-3) message] The system which generated this result transmit abdullahi reference range : /HPF. The reference range was not used to interpret this result as normal/abnormal . WBC, UA (test code = 12 See_Comment [Autom ated 5821-4) message] The system which generated this result transmit abdullahi reference range : /HPF. The reference range was not used to interpret this result as normal/abnormal . Bacteria, UA (test None Seen code = 16970-9) Mucus (test code = Rare 8247-9) Squam Epithel, UA <1 See_Comment [Automate d (test code = 06433-9) messag e] The system which generated this result transmit abdullahi reference range : /HPF. The reference range was not used to interpret this result as normal/abnormal . Hyaline Casts, UA 1 See_Comment [Automate d (test code = 17722-2) messag e] The system which generated this result transmit abdullahi reference range : /LPF. The reference range was not used to interpret this result as normal/abnormal . Crystals, Urine (test None Seen code = 25622-1) Specimen Source (test code = 2795) LATRELL (test code = LATRELL) Academic Advisor ID - [auto]Academic Advisor ID - tech Lab Interpretation Abnormal (test code = 66026-5) [facility]LEX URINE [id number] 11:58:22 Test Item Value Reference Range Interpretation Comments COLOR (BEAKER) (test code = 470) Yellow CLARITY (BEAKER) (test code = 469) Clear SPECIFIC GRAVITY UA (BEAKER) (test 1.020 1.001-1.035 code = 468) PH UA (BEAKER) [...] Negative Negative 465) LEUKOCYTE ESTERASE UA (BEAKER) Small Negative A (test code = 466) UROBILINOGEN UA (BEAKER) (test code 0.2 mg/dL 0.2-1.0 = 463) RBC UA (BEAKER) (test code = 519) 1 /HPF WBC UA (BEAKER) (test code = 520) 12 /HPF BACTERIA (BEAKER) (test code = 517) None Seen MUCUS (BEAKER) (test code = 1574) Rare SQUAMOUS EPITHELIAL (BEAKER) (test < /HPF code = 516) HYALINE CASTS (BEAKER) (test code = 1 /LPF 514) CRYSTALS, URINE (BEAKER) (test code None Seen = 1521) SOURCE(BEAKER) (test code = 2795) Academic Advisor ID - [auto]Academic Advisor ID - techIMMUNOGLOBULIN G (IGG)2022-01-16 11:46:35 Test Item Value Reference Range Interpretation Comments IMMUNOGLOBULIN G (IGG) < mg/dL See_Comment L [Aut omated message] (BEAKER) (test code = The sy stem which 427) generated this result transmitted ref erence range: 540-1,82 2. The reference range was not used to int erpret this result as normal/abnormal . Academic Advisor ID - DBOperator ID - DBVITAMIN D, 50-[id number] 11:46:29 Test Item Value Reference Range Interpretation Comments VITAMIN D 25-OH (BEAKER) (test 25.3 ng/mL 6.6-49.9 code = 2764) Effective 04/10/2017: Reference Range ChangeNew: 6.6-49.9 ng/mL Previous: 13.0- 47.8 ng/mLRecommendedVitamin D Target Range: 30.0-40.0 ng/mLOperator ID - DBPSA 2022-01-16 11:46:24 Test Item Value Reference Range Interpretation Comments PROSTATE SPECIFIC ANTIGEN (BEAKER) 0.5 ng/mL 0.0-4.0 (test code = 844) Academic Advisor ID - [id number] 11:36:03 Test Item Value Reference Range Interpretation Comments MAGNESIUM (BEAKER) (test code = 1.9 mg/dL 1.6-2.6 627) Academic Advisor ID - DBCOMPREHENSIVE METABOLIC [id number] 11:36:03 Test Item Value Reference Range Interpretation Comments TOTAL PROTEIN 4.8 gm/dL 6.0-8.3 L (BEAKER) (test code = 770) ALBUMIN (BEAKER) 3.6 g/dL 3.5-5.0 (test code = 1145) ALKALINE PHOSPHATASE 164 U/L 40-150 H (BEAKER) (test code = 346) BILIRUBIN TOTAL 2.7 mg/dL 0.2-1.2 H (BEAKER) (test code = 377) SODIUM (BEAKER) (test 142 meq/L 136-145 code = 381) POTASSIUM (BEAKER) 4.6 meq/L 3.5-5.1 (test code = 379) CHLORIDE (BEAKER) 111 meq/L 98-107 H (test code = 382) CO2 (BEAKER) (test 21 meq/L 22-29 L code = 355) BLOOD UREA NITROGEN 32 mg/dL 7-21 H (BEAKER) (test code = 354) CREATININE (BEAKER) 2.20 mg/dL 0.57-1.25 H (test code = 358) GLUCOSE RANDOM 156 mg/dL 70-105 H (BEAKER) (test code = 652) CALCIUM (BEAKER) 9.0 mg/dL 8.4-10.2 (test code = 697) AST (SGOT) (BEAKER) 27 U/L 5-34 (test code = 353) ALT (SGPT) (BEAKER) 25 U/L 6-55 (test code = 347) EGFR (BEAKER) (test 30 mL/min/1.73 ESTIMA ABDULLAHI GFR IS code = 1092) sq m NOT ACCURATE CREATININE CLEARANCE IN PREDICTING GLOMERULAR FILTRATION RATE . ESTIMATED GFR I S NOT APPLICABLE FOR DIALYSIS PATIEN TS. Academic Advisor ID - DBSpecimen slightly ictericLIPID [id number] 11:36:03 Test Item Value Reference Range Interpretation Comments TRIGLYCERIDES (BEAKER) (test code = 55 mg/dL 540) CHOLESTEROL (BEAKER) (test code = 166 mg/dL 631) HDL CHOLESTEROL (BEAKER) (test code 64 mg/dL = 976) LDL CHOLESTEROL CALCULATED (BEAKER) 91 mg/dL (test code = 633) Triglyceride Reference Range: Low Risk <150 Borderline 150-199 High Risk 200- 499 Very High Risk >=500Cholesterol Reference Range: Low Risk <200 Borderline 200-239 High Risk >240HDL Cholesterol Reference Range: Low Risk >=60 High Risk <40LDL Cholesterol Reference Range: Optimal <100 Near Optimal 100-129 Borderline 130-159 High 160-189 Very High >=190 Academic Advisor ID - DBSpecimen slightly ictericCreatinine, random [id number] 11:32:44 Test Item Value Reference Range Interpretation Comments Creatinine, Ur 198.4 mg/dL (test code = 2161-8) LATRELL (test code = Reference Range: No LATRELL) NormalsOperator ID - DB [facility] HospitalProtein, random [id number] 11:32:44 Test Item Value Reference Range Interpretation Comments Protein, Urine (test code = 14 mg/dL 0-14 2888-6) LATRELL (test code = LATRELL) Academic Advisor ID - DB Lab Interpretation (test Normal code = 32841-0) [facility] HospitalMicroalbumin, random [id number] 11:32:44 Test Item Value Reference Range Interpretation Comments Microalbumin, 2.0 mg/dL Urine (test code = 83350-3) LATRELL (test code = Reference Range: No LATRELL) NormalsOperator ID - DB [facility] HospitalCreatinine, random [id number] 11:32:44 Test Item Value Reference Range Interpretation Comments Creatinine, Ur 198.4 mg/dL (test code = 2161-8) LATRELL (test code = Reference Range: No LATRELL) NormalsOperator ID - DB [facility] HospitalProtein, random [id number] 11:32:44 Test Item Value Reference Range Interpretation Comments Protein, Urine (test code = 14 mg/dL 0-14 2888-6) LATRELL (test code = LATRELL) Academic Advisor ID - DB Lab Interpretation (test Normal code = 80926-3) [facility]Microalbumin, random [id number] 11:32:44 Test Item Value Reference Range Interpretation Comments Microalbumin, 2.0 mg/dL Urine (test code = 41127-5) LATRELL (test code = Reference Range: No LATRELL) NormalsOperator ID - DB [facility]AT[facility] RANDOM [id number] 11:32:44 Test Item Value Reference Range Interpretation Comments CREATININE URINE (BEAKER) (test 198.4 mg/dL code = 375) Reference Range: No NormalsOperator ID - DBPROTEIN, RANDOM [id number] 11:32:44 Test Item Value Reference Range Interpretation Comments PROTEIN, URINE (BEAKER) (test code = 14 mg/dL 0-14 1569) Academic Advisor ID - DBMICROALBUMIN, RANDOM [id number] 11:32:44 Test Item Value Reference Range Interpretation Comments MICROALBUMIN URINE (BEAKER) (test 2.0 mg/dL code = 1794) Reference Range: No NormalsOperator ID - DBCBC W/PLT COUNT & AUTO [id number] 11:05:40 Test Item Value Reference Range Interpretation Comments WHITE BLOOD CELL COUNT (BEAKER) 4.0 K/ L 3.5-10.5 (test code = 775) RED BLOOD CELL COUNT (BEAKER) 2.49 M/ L 4.63-6.08 L (test code = 761) HEMOGLOBIN (BEAKER) (test code = 8.5 GM/DL 13.7-17.5 L 410) HEMATOCRIT (BEAKER) (test code = 25.9 % 40.1-51.0 L 411) MEAN CORPUSCULAR VOLUME (BEAKER) 104.0 fL 79.0-92.2 H (test code = 753) MEAN CORPUSCULAR HEMOGLOBIN 34.1 pg 25.7-32.2 H (BEAKER) (test code = [...] PERCENT (BEAKER) (test code = 2801) RAD, BONE DENSITY [id number] 09:26:00Referring: Dr. Diane Eastman/ [place] for Exam:->jail use of prednisoneReason for Exam:->s/p lung transplantK[facility]ED [facility]Name: [facility] : 1955 Sex: MFINAL REPORT Exam: Bone mineral density study. History: Osteopenia. Comparison:None Discussion: Evaluation of the left hip and lumbar spine was performed utilizing DEXA Hologic bone densitometer. The study is technically adequate. Left hip total bone mineral density: 0.500gm/cm2,T-score is -3.5, Z- score is -3.0. Left hip femoral neck bone mineral density: 0.380gm/cm2, T-score is -4.0, Z-score is -3.0. Lumbar spine total bone mineral density:0.720gm/cm2, T-score is-3.4, Z-scoreis -2.6. Impression:1. Osteoporosis of the left hip, fracture risk is high2. Osteoporosis of the lumbar spine, fracture risk is high Least significant change (LSC) for bone mineral density as provided by manager mail is 0.023 g/cm2 for lumbar spine and 0.027 g/cm2 for total hip. 10 - year fracture riskper WHO Fracture Risk Assessment Tool (FRAX) for:Not reported because some T-scores at or below -2.5The patient's fracture risk is compared to an age-matched control. Medical evaluation for secondary causes of low bone bone mineral density may be appropriate. Correlate clinically for the necessity and timing of the next bone mineral density study. Signed: Rogelio Martinez MDReport Verified Date/Time: 01/16/2022 09:26:58 Reading Location: [facility] Reading Room [address] [place] [address] with platelet count + automated [id number] 12:09:00 Test Item Value Reference Range Interpretation Comments WBC (test code = 5.8 See_Comment [Automated ) message] The system which generated this result transmit abdullahi reference range : 3.4 - 10.8 x10E3/uL. The reference range was not used to interpret this result as normal/abnormal . RBC (test code = 2.58 See_Comment LL [Automated 789-8) message] The system which generated this result transmit abdullahi reference range : 4.14 - 5.80 x10E6/uL. The reference range was not used to interpret this result as normal/abnormal . Hemoglobin (test code 8.6 g/dL 13.0-17.7 L = ) Hematocrit (test code 25.2 % 37.5-51.0 L = ) MCV (test code = 98 fL 79-97 H ) MCH (test code = 33.3 pg 26.6-33.0 H ) MCHC (test code = 34.1 g/dL 31.5-35.7 ) RDW (test code = 14.4 % 11.6-15.4 ) Platelets (test code 71 See_Comment LL Platele t count = ) verified by examination of peripheral bloo d smear.Decreased . [Automated message] The system which generated this result transmit abdullahi reference range : 150 - 450 x10E3/uL. The reference range was not used to interpret this result as normal/abnormal . % Neutros (test code 80 % Not Estab. = ) % Lymphs (test code = 16 % Not Estab. Lympho cytes appear ) reactive. % Monos (test code = 3 % Not Estab. ) % Eos (test code = 0 % Not Estab. ) % Baso (test code = 1 % Not Estab. ) # Neutros (test code 4.6 See_Comment [Autom ated = ) message] The system which generated this result transmit abdullahi reference range : 1.4 - 7.0 x10E3/uL. The reference range was not used to interpret this result as normal/abnormal . # Lymphs (test code = 0.9 See_Comment [Auto mated ) message] The system which generated this result transmit abdullahi reference range : 0.7 - 3.1 x10E3/uL. The reference range was not used to interpret this result as normal/abnormal . # Monos (test code = 0.2 See_Comment [Autom ated ) message] The system which generated this result transmit abdullahi reference range : 0.1 - 0.9 x10E3/uL. The reference range was not used to interpret this result as normal/abnormal . # Eos (test code = 0.0 See_Comment [Automat ed ) message] The system which generated this result transmit abdullahi reference range : 0.0 - 0.4 x10E3/uL. The reference range was not used to interpret this result as normal/abnormal . Baso (Absolute) (test 0.1 See_Comment [Auto mated code = ) message] The system which generated this result transmit abdullahi reference range : 0.0 - 0.2 x10E3/uL. The reference range was not used to interpret this result as normal/abnormal . Hematology Comments: Note: Manual (test code = ) differ ential was performed. LATRELL (test code = LATRELL) Performed at: 01 - [address] [id number] Director: Ortega Santiago MD, Phone: [phone] Lab Interpretation Abnormal (test code = 31009-1) [facility] with platelet count + automated [id number] 12:09:00 Test Item Value Reference Range Interpretation Comments WBC (test code = 5.8 See_Comment [Automated ) message] The system which generated this result transmit abdullahi reference range : 3.4 - 10.8 x10E3/uL. The reference range was not used to interpret this result as normal/abnormal . RBC (test code = 2.58 See_Comment LL [Automated ) message] The system which generated this result transmit abdullahi reference range : 4.14 - 5.80 x10E6/uL. The reference range was not used to interpret this result as normal/abnormal . Hemoglobin (test code 8.6 g/dL 13.0-17.7 L = ) Hematocrit (test code 25.2 % 37.5-51.0 L = ) MCV (test code = 98 fL 79-97 H ) MCH (test code = 33.3 pg 26.6-33.0 H ) MCHC (test code = 34.1 g/dL 31.5-35.7 ) RDW (test code = 14.4 % 11.6-15.4 ) Platelets (test code 71 See_Comment LL Platele t count = ) verified by examination of peripheral bloo d smear.Decreased . [Automated message] The system which generated this result transmit abdullahi reference range : 150 - 450 x10E3/uL. The reference range was not used to interpret this result as normal/abnormal . % Neutros (test code 80 % Not Estab. = ) % Lymphs (test code = 16 % Not Estab. Lympho cytes appear ) reactive. % Monos (test code = 3 % Not Estab. ) % Eos (test code = 0 % Not Estab. ) % Baso (test code = 1 % Not Estab. ) # Neutros (test code 4.6 See_Comment [Autom ated = ) message] The system which generated this result transmit abdullahi reference range : 1.4 - 7.0 x10E3/uL. The reference range was not used to interpret this result as normal/abnormal . # Lymphs (test code = 0.9 See_Comment [Auto mated ) message] The system which generated this result transmit abdullahi reference range : 0.7 - 3.1 x10E3/uL. The reference range was not used to interpret this result as normal/abnormal . # Monos (test code = 0.2 See_Comment [Autom ated ) message] The system which generated this result transmit abdullahi reference range : 0.1 - 0.9 x10E3/uL. The reference range was not used to interpret this result as normal/abnormal . # Eos (test code = 0.0 See_Comment [Automat ed ) message] The system which generated this result transmit abdullahi reference range : 0.0 - 0.4 x10E3/uL. The reference range was not used to interpret this result as normal/abnormal . Baso (Absolute) (test 0.1 See_Comment [Auto mated code = ) message] The system which generated this result transmit abdullahi reference range : 0.0 - 0.2 x10E3/uL. The reference range was not used to interpret this result as normal/abnormal . Hematology Comments: Note: Manual (test code = 4763152) differ ential was performed. LATRELL (test code = LATRELL) Performed at: [address] [place] [id number] Director: Ortega Santiago MD, Phone: [phone] Lab Interpretation Abnormal (test code = 92263-5) [facility], ABDOMEN, [id number] 12:35:00Referring: Dr. Diane Eastman/ KINA Unlisted Reason for Exam - Click Yes and Enter Reason Below->Yes Unlisted Reason for Exam->liver protocol, cirrhosis, liver lesions, pancreas lesion, s/p TIPS,HCC screening [facility] : 1955 Sex: MFINAL REPORT MRI of the abdomen with and without contrast Clinical History: Unlisted Reason for Examliver protocol, cirrhosis, liver lesions, pancreas lesion, s/p TIPS, HCC screening Technique: Multiplanar and multisequence MR images of the abdomen are obtained before and after intravenous contrast administration. Contrast is administered to evaluate neoplasm and vasculature. Comparison: January 31, 2021 Discussion: There are trace bilateral pleural effusions. Liver is cirrhotic.There is no biliary ductal dilatation. 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 Suggest continued surveillance. Trace bilateral pleural effusions. Trace ascites. Signed:Judy Perry Verified Date/Time: 09/01/2021 12:35:23 Reading Location: [facility] C013X [facility] Consult Reading Room CBC W/O DIFF W [id number] 06:30:02 Test Item Value Reference Range Interpretation Comments WHITE BLOOD CELL COUNT See_Comment [Aut omated message] (test code = 52848-1) The sy stem which generated this result transmitted ref erence range: 3.5 - 11 .0 K/UL. The refer ence range was not u sed to interpret this result as normal/abnor mal. RED BLOOD CELL COUNT See_Comment L [Autom ated message] (test code = 21758-3) The sy stem which generated this result [...] as normal/abnor mal. HEMATOCRIT (test code = 24.0 % 40.0-51.0 L 87207-4) MEAN CORPUSCULAR VOLUME 97.6 fL 80.0-99.0 (test code = 80244-1) MEAN CORPUSCULAR 35.0 PG 25.0-33.0 H HEMOGLOBIN (test code = 44956-4) MEAN CORPUSCULAR See_Comment [Automated message] HEMOGLOBIN CONC (test The sy stem which code = 47192-3) generated th is result transmitted ref erence range: 31.0 - 3 6.0 G/DL. The refer ence range was not u sed to interpret this result as normal/abnor mal. PLATELET COUNT (test See_Comment L [Autom ated message] code = 21755-6) The system w hich generated this result transmitted ref erence range: 130 - 40 0 K/UL. The reference r stella was not used to interpret this result as normal/abnor mal. Comments (test code = (NOTE) NO SP ECIFIC RBC 50527-9) ABNORMALITIES IDENTIFIED PLAT ELETS APPEAR DECREASE D SEE ADDITIONAL COMM ENTS BELOW: PLATELET COUNT CONFIRMED BY RE VIEW OF THE PERIPHERAL SMEAR. NO MORPHOLOGIC ABNORMALITY OF PLATELETS IDENT IFIED. Unless Otherwis e Indicated, All Testing Performed At: [facility], [address] [facility], [facility] [address] Laborator y Director: Ben AlcalaIA Number [id number] Cap Accreditation N o. Lab Interpretation Abnormal (test code = 69779-0) [facility] [id number] 16:33:04 Test Item Value Reference Range Interpretation Comments PARATHYROID HORMONE 136 PG/ML 15-65 H Unless Otherwise INTACT (test code = Indicate d, All 2731-8) Testing Perform ed At: [facility], [address] [place] [address] Laborator y Director: Dalton Pan M.D. CLIA Number [id number] Cap Accreditation N o. Lab Interpretation Abnormal (test code = 88718-5) [facility]FERR[facility]IN2022-[facility] 12:03:08 Test Item Value Reference Range Interpretation Comments FERRITIN (test code = See_Comment Unles s Otherwise 05981-2) Indicated, All Testing Performed At: [employer] [facility], [address] [place] [address] Laborator y Director: Dalton Pan M.D. CLIA Number [id number] Cap Accreditation N o. 76254-57 [Autom ated message] The sy stem which generated this result transmitted ref erence range: 30 - 400 NG/ML. The reference r stella was not used to int erpret this result as normal/abnormal . [facility]VIT[facility]IN D 25 [id number] 11:47:28 Test Item Value Reference Range Interpretation Comments VITAMIN D 25-HYDROXY SEE BELOW NG/ML NOT E: 25-HYDROXYVITAMIN D (test code = 1988-3) ASSAY I NCLUDES 25-HYDROXYVITAM IN D2 AND D3. METHODOLOGY IS CHEMILUMINESCEN T IMMUNOASSAY. $$ $$$ INTERPRETIVE RA NGES $$$$$PEDIATRIC (<17 YEARS) . . . . . . . . . . . NG/ML 20-100ADULT: IN SUFFICIENT . . . . . . . . . . . . . . NG/ML <20 SUBOP TIMAL . . . . . . . . . . . . . . . NG/ML 20-29 OPTIMAL . . . . . . . . . . . . . . . . . NG/ML 30-100 Unless O therwise Indicated, All Testing Performed At: [id number], [address] [place] [address], [place] [address] Laboratory Dire ctor: Dalton Pan M.D. CLIA Number [id number] [place]. [id number] [facility] Ho[id number] 09:38:27 Test Item Value Reference Range Interpretation Comments PHOSPHORUS (test code = See_Comment Unl ess Otherwise 2777-1) Indicated, All Testing Performed At: [facility], [address] [place] [address] Labora tory Director: Dalton Pan M.D. CLIA Number [id number] Cap Accreditation [place] o. [id number] [Autom ated message] The sy stem which generated this result transmit abdullahi reference range : 2.5 - 4.5 MG/DL. The reference range was not u sed to interpret this result as normal/abnormal . [facility]ALBUMIN2022-[facility] 09:37:53 Test Item Value Reference Range Interpretation Comments ALBUMIN (test code = See_Comment Unless Otherwise 56673-5) Indicated, All Testing Performed At: [address] [address] Laborator y Director: Dalton prinlge M.D. CLIA Number [id number] Cap Accreditation [place] o. 84973-30 [Automated mess age] The system which ge nerated this result tra nsmitted reference range : 3.5 - 5.2 G/DL. The refer ence range was not used to interpret this result as normal/abnormal . [facility] HospitalBASIC METABOLIC [id number] 09:37:53 Test Item Value Reference Range Interpretation Comments GLUCOSE (test code = See_Comment [Autom ated message] 2345-7) The system whic h generated this result [...] H [Au tomated message] 2160-0) The system [employer] generated this result transmitted ref erence range: 0.80 - 1 .40 MG/DL. The refe rence range was not u sed to interpret this result as normal/abnor mal. EGFR (test code = See_Comment L [Automate d message] 11331-9) The system [employer] generated this result transmitted ref erence range: >60 ML/MIN/1.73. Th e reference range was not used to int erpret this result as normal/abnormal . SODIUM (test code = See_Comment [Automa abdullahi message] 2951-2) The system [employer] generated this result transmitted ref erence range: 133 - 14 6 MEQ/L. The refe rence range was not u sed to interpret this result as normal/abnor mal. POTASSIUM (test code = See_Comment [Aut omated message] 2823-3) The system [employer] generated this result transmitted ref erence range: 3.5 - 5. 4 MEQ/L. The refe rence range was not u sed to interpret this result as normal/abnor mal. CHLORIDE (test code = See_Comment H [Auto mated message] 2075-0) The system UGAME generated this result transmitted ref erence range: 95 - 107 MEQ/L. The refe rence range was not u sed to interpret this result as normal/abnor mal. CO2 (test code = 1963-8) See_Comment [A utomated message] The system UGAME generated this result transmitted ref erence range: 19 - 31 MEQ/L. The reference r stella was not used to interpret this result as normal/abnor mal. CALCIUM (test code = See_Comment Unles s Otherwise 74881-6) Indicated, All Testing Perform ed At: [facility], [address] [facility] [place] [address] Laborator y Director: Ben AlcalaIA Number [id number] [place]. [id number] [Autom ated message] The sy stem which generated this result transmit abdullahi reference range : 8.5 - 10.5 MG/DL. T he reference range was not used to int erpret this result as normal/abnormal . Lab Interpretation (test Abnormal code = 12705-6) [facility]+%[id number] 09:37:53 Test Item Value Reference Range Interpretation Comments IRON (test code = See_Comment [Automate d message] 2498-4) The system UGAME generated this result transmitted ref erence range: 59 - 158 UG/DL. The reference r stella was not used to interpret this result as normal/abnor mal. UIBC (test code = See_Comment L [Automate d message] 2501-5) The system UGAME generated this result transmitted ref erence range: 112 - 34 7 UG/DL. The refe rence range was not u sed to interpret this result as normal/abnor mal. TIBC (test code = See_Comment L [Automate d message] 03313-0) The system UGAME generated this result transmitted ref erence range: 250 - 45 0 UG/DL. The refe rence range was not u sed to interpret this result as normal/abnor mal. IRON SATURATION % (test 59 % 20-50 H Unl ess Otherwise code = 2502-3) Indicated, Al l Testing Performed At: [facility], [address] [place] [address] Laborator y Director: Dalton Pan M.D. [place] Number [id number] [facility] [place]reditation [place] o. [id number] Lab Interpretation Abnormal (test code = 25863-8) [facility]IRAL [id number] 15:54:00 Test Item Value Reference Range Interpretation [...] (2) real-time PCR amplification and detection with GPYA-3-yljsgueh primers and probes. A well-conserved region of the EBNA-1 gene is targeted, along with an internal control sequence used to confirm PCR amplification. Asymptomatic carriers and viral genetic variation, among other factors, can affect the accuracy of nucleic acidtesting; therefore, results should be interpreted in light of clinical data.This test was developed and its performance characteristics determined by the [facility] Pathology Department,Section of Molecular Pathology. It has not been [...] or below See_Comment [Auto mated message] NEGATIVE (BEAKER) the linear range The sy stem which [...] management of antiviral therapy. For treatment of CMV infection due to reactivation in transplant recipients, a threshold between 4,000 and 5,000 copies/mLis suggested. For treatment of primary CMV infection, a lower threshold can be used.CMV infection may also be monitored using weekly serial measurements. Serial measurements of CMV DNA viral load can be evaluated by identifying a 10-fold change, as [...] and its performance characteristics determined by the [facility] Pathol ogy Department, Section of Molecular Pathology. It has not been cleared or approved by the U.S. Foodand Drug Administration (FDA), since FDA approval is not required for clinical use of the test. Validation was done as required by The Clinical Laboratory Improvement Amendments of 1988.[id number] 19:01:00 Test Item Value Reference Range Interpretation Comments PROSTATE SPECIFIC ANTIGEN (BEAKER) 0.2 ng/mL 0.0-4.0 (test code = 844) Academic Advisor ID - BSVITAMIN D, [id number] 19:01:00 Test Item Value Reference Range Interpretation Comments VITAMIN D 25-OH (BEAKER) (test 30.3 ng/mL 6.6-49.9 code = 2764) Effective 04/10/2017: Reference Range ChangeNew: 6.6-49.9 ng/mL Previous: 13.0- 47.8 ng/mLRecommendedVitamin D Target Range: 30.0-40.0 ng/mLOperator ID - BS HEMOGLOBIN [id number] 15:22:00 Test Item Value Reference Range Interpretation Comments HEMOGLOBIN A1C (BEAKER) (test code = < % 4.3-6.1 L 368) TACROLIMUS [id number] 15:11:00 Test Item Value Reference Range Interpretation Comments TACROLIMUS BLOOD 4.5 ng/mL 10.0-20.0 L Test perfor med on Colon (BEAKER) (test code Architec t Immunoassay = 657) system with Chemiluminescen t Microparticle I mmunoassay (CMIA) technolo gy. Academic Advisor ID - ADMINIMMUNOGLOBULIN G (IGG)2021-02-28 13:50:00 Test Item Value Reference Range Interpretation Comments IMMUNOGLOBULIN G (IGG) < mg/dL See_Comment L [Aut omated message] (AKER) (test code = The sy stem which 427) generated this result transmitted ref erence range: 540-1,82 2. The reference range was not used to int erpret this result as normal/abnormal . Academic Advisor ID - ELIZABETHANTONIO LOperaalexia ID - PIANTONIO LCOMPREHENSIVE METABOLIC PANEL 2021-02-28 12:48:00 Test Item [...] S NOT APPLICABLE FOR DIALYSIS PATIEN TS. Academic Advisor ID - SERGIO LOperator ELIZABETH HILL LSpecimen slightly ictericMAGNESIUM 2021-02-28 12:27:00 Test Item Value Reference Range Interpretation Comments MAGNESIUM (BEAKER) (test code = 1.7 mg/dL 1.6-2.6 627) Academic Advisor ID - SERGIO LLIPID [id number] 12:27:00 Test Item Value Reference Range Interpretation Comments TRIGLYCERIDES (BEAKER) (test code = 65 mg/dL 540) CHOLESTEROL (BEAKER) (test code = 154 mg/dL 631) HDL CHOLESTEROL (BEAKER) (test code 61 mg/dL = 976) LDL CHOLESTEROL CALCULATED (BEAKER) 80 mg/dL (test code = 633) Triglyceride Reference Range: Low Risk <150 Borderline 150-199 High Risk 200- 499 Very High Risk >=500Cholesterol Reference Range: Low Risk <200 Borderline 200-239 High Risk >240HDL Cholesterol Reference Range: Low Risk >=60 High Risk <40LDL Cholesterol Reference Range: Optimal <100 Near Optimal 100-129 Borderline 130-159 High 160-189 Very High >=190 Academic Advisor ID - SERGIO Rivera slightly ictericRAD, CHEST, 2 [id number] 12:13:00Referring: Dr. Diane Eastman/ River for Exam:->s/[facility] 1955 Sex: MFINAL REPORT [...] MDReport Verified Date/Time: 02/28/2021 12:13:10 Reading Location: [facility] Radiology Reading Room URINALYSIS W/ REFLEX URINE [id number] 11:12:00 Test Item Value Reference Range Interpretation [...] = 1584) SOURCE(BEAKER) (test code = 2795) Academic Advisor ID - [auto]Academic Advisor ID - techCREATININE, RANDOM [id number] 10:58:00 Test Item Value Reference Range Interpretation Comments CREATININE URINE (BEAKER) (test 162.2 mg/dL code = 375) Reference Range: No NormalsOperator ID - PIAYA LPROTEIN, RANDOM [id number] 10:58:00 Test Item Value Reference Range Interpretation Comments PROTEIN, URINE (BEAKER) (test code = 9 mg/dL 0-14 1569) Academic Advisor ID - PIAYA LMICROALBUMIN, RANDOM [id number] 10:58:00 Test Item Value Reference Range Interpretation Comments MICROALBUMIN URINE (BEAKER) (test 1.6 mg/dL code = 1794) Reference Range: No NormalsOperator ID - PIAYA LCBC W/PLT COUNT & AUTO [id number] 10:42:00 Test Item Value Reference Range Interpretation [...] (BEAKER) (test code = 2801) MR, ABDOMEN, [id number] 10:33:00Referring: Dr. Diane Eastman/ KINA Patient has CKD 4. Please use Gadolinium Based Contrast Agent: Multihance or Gadovist. Unlisted Reason for Exam - Click Yes and Enter Reason Below->Yes Unlisted Re ason for Exam->cirrhosis, screen for HCC, liver cyst [facility] : 1955 Sex: MFINAL REPORT TECHNIQUE: MRI of the abdomen WITHOUT and WITH intravenous contrast. INDICATION: Cirrhosis, screen for HCC. COMPARISON: [...] represented a focus of altered perfusion on previous MRI.BILIARY: Cholelithiasis.. No biliary ductal dilatation or filling defect.SPLEEN: Spleen is enlarged measuring 17 cm in length..PANCREAS: No focal masses or ductal dilatation. 1 cm cystic lesion in the pancreatic head. ADRENALS: No adrenal nodules.KIDNEYS/URETERS: No hydronephrosis or solid mass lesions. PERITONEUM/RETROPERITONEUM: No free fluid.LYMPH NODES: No lymphadenopathy.VESSELS: Portal vein, splenic vein and superior mesenteric vein are patent. Main portal vein measures 1.8 cm in diameter. TIPS is present.Evaluation for TIPS patency limited on this exam secondary to susceptibility artifact from the stent.. Conventional hepatic arterial anatomy. GI TRACT: No distention or wall thickening. BONES AND SOFT T ISSUES: Mild degenerative changes in the spine. No [...] with trace bilateral pleural effusions. Signed: Cheyenne Jenseneport Verified Date/Time: 02/02/2021 10:33:11 Reading Location: [facility] B1 C013X Ortho Consult Reading Room -[id number] 13:46:00 Test Item Value Reference Range Interpretation Comments POC-CREATININE 2.3 mg/dL 0.6-1.3 H : [facility] AT [facility] (test [address], code = 1859) [facility] 7703 0: Academic Advisor/Techni demetrice ID = [id number] for Michelle Prescott POC-EGFR (BEAKER) 29 mL/min/1.73M2 (test code = 1860) TACROLIMUS [id number] 10:05:00 Test Item Value Reference Range Interpretation Comments TACROLIMUS BLOOD 3.6 ng/mL 10.0-20.0 L Test perfor med on Colon (BEAKER) (test code Architec t Immunoassay = 657) system with Chemiluminescen t Microparticle I mmunoassay (CMIA) technolo gy. Academic Advisor ID - MARCELLE [id number] 05:38:00 Test Item Value Reference Range Interpretation Comments MAGNESIUM (BEAKER) (test code = 1.7 mg/dL 1.6-2.6 627) Academic Advisor ID - SERGIO [id number] 05:38:00 Test Item Value Reference Range Interpretation Comments PHOSPHORUS (BEAKER) (test code = 4.0 mg/dL 2.3-4.7 604) Academic Advisor ID - SERGIO LCOMPREHENSIVE METABOLIC [id number] 05:38:00 Test Item Value Reference Range Interpretation [...] S NOT APPLICABLE FOR DIALYSIS PATIEN TS. Academic Advisor ID - PIAYA LSpecimen slightly ictericCBC W/PLT COUNT & AUTO [id number] 05:30:00 Test Item Value Reference Range Interpretation [...] PERCENT (BEAKER) (test code = 2801) SARS-COV2/RT-PCR ([facility])2020-11-10 04:55:00 Test Item Value Reference Range Interpretation Comments SARS-COV2/RT-PCR (test Negative Not Detected, Negative, code = 2299163) See external report for linked test SARS-COV-2 PERFORMING LAB [facility] (test code = 2515087) Negative result for this test determines that [...] justifying the authorization of the emergency use ofin vitro diagnostic tests for detection and/or diagnosis of COVID-19 is terminated under Section 564(b)(2) of the Act or the EUA is revoked under Section 564(g) of the Act.Fact Sheet for Healthcare Prov iders:https://www.[facility]/sites/default/files/product/documents/Fact_Sheet_HC _Hefcczuoq_Ibpe_RTQT-HrE-3.pdfFact Sheet for Healthcare Patients:https://www.[facility]/sites/default/files/product/docume nts/Xkgs_Tqnss_Poglnbqw_Tbrc_OPMB-XiM-4.pdfPerforming Laboratory:[facility], [place] [address]HQJTOOGCZPH TIME/INR 2020-11-10 04:45:00 Test Item Value Reference Range Interpretation Comments PROTIME (BEAKER) 17.5 seconds 11.9-14.2 H (test code = 759) INR (BEAKER) (test 1.48 See_Comment [Automat ed message] code = 370) The system UGAME generated this result transmitted ref erence range: <=5.90. The reference range was not used to int erpret this result as normal/abnormal . Effective 11/26/2018: PT Reference Range ChangeNew: 11.9-14.2 Previous: 11.7- 14.7RECOMMENDED COUMADIN/WARFARIN INR THERAPY RANGESSTANDARD DOSE: 2.0-3.0 Includes: PROPHYLAXIS for venous thrombosis, systemic embolization; TREATMENT for venous thrombosis and/or pulmonary embolus.HIGH RISK: Target INR is 2.5-3.5 for patients wiht mechanical heart valves.COMPREHENSIVE METABOLIC [...] S NOT APPLICABLE FOR DIALYSIS PATIEN TS. Academic Advisor ID - BSCBC (HEMOGRAM ONLY)2020-11-09 21:00:00 Test [...] WBC 0-0 (test code = 413) PTH [id number] 14:22:57 Test Item Value Reference Range Interpretation Comments PARATHYROID HORMONE 210 PG/ML 15-65 H Unless Otherwise INTACT (test code = Indicate d, All 2731-8) Testing Perform ed At: [facility], [address] [place] [address] Laborator y Director: Dalton Pan M.D. CLIA Number [id number] [place]. [id number] Lab Interpretation Abnormal (test code = 09409-9) [facility]IT[facility] D 25 [id number] 11:24:36 Test Item Value Reference Range Interpretation Comments VITAMIN D 25-HYDROXY SEE BELOW NG/ML NOT E: 25-HYDROXYVITAMIN D (test code = 1988-08) ASSAY I NCLUDES 25-HYDROXYVITAM IN D2 AND D3. METHODOLOGY IS CHEMILUMINESCEN T IMMUNOASSAY. $$ $$$ INTERPRETIVE RA NGES $$$$$PEDIATRIC (<17 YEARS) . . . . . . . . . . . NG/ML 20-100ADULT: IN SUFFICIENT . . . . . . . . . . . . . . NG/ML <20 SUBOP TIMAL . . . . . . . . . . . . . . . NG/ML 20-29 OPTIMAL . . . . . . . . . . . . . . . . . NG/ML 30-100 Unless O therwise Indicated, All Testing Performed At: [place] [address] Laboratory Dire ctor: Dalton Pan M.D. CLIA Number [id number] [place]. [id number] [facility] HospitalALBUMIN2021-04-20 09:08:03 Test Item Value Reference Range Interpretation Comments ALBUMIN (test code = See_Comment Unless Otherwise [address]7614-9) Indicated, All Testing Performed At: [employer] [address] [address] Laborator y Director: Dalton pringle M.D. CLIA Number [id number] [place]. [id number] [Automated mess age] The system which ge nerated this result tra nsmitted reference range : 3.5 - 5.2 G/DL. The refer ence range was not used to interpret this result as normal/abnormal . [facility] HospitalBASIC METABOLIC [id number] 09:08:03 Test Item Value Reference Range Interpretation Comments GLUCOSE (test code = See_Comment H [Autom ated message] 3045-7) The system UGAME generated this result transmitted ref erence range: 70 - 99 MG/DL. The reference r stella was not used to interpret this result as normal/abnor mal. BLOOD UREA NITROGEN See_Comment H [Automa abdullahi message] (test code = 3091-6) The IPXI tem which generated this result transmitted ref erence range: 8 - 23 M G/DL. The reference r stella was not used to interpret this result as normal/abnor mal. CREATININE (test code = See_Comment H [Au tomated message] 2160-0) The system UGAME generated this result transmitted ref erence range: 0.80 - 1 .40 MG/DL. The refe rence range was not u sed to interpret this result as normal/abnor mal. EGFR AA (test code = See_Comment L [Autom ated message] 72643-5) The system UGAME generated this result transmitted ref erence range: >60 ML/MIN/1.73. Th e reference range was not used to int erpret this result as normal/abnormal . EGFR (test code = See_Comment L [Automate d message] 91497-8) The system UGAME generated this result transmitted ref erence range: >60 ML/MIN/1.73. Th e reference range was not used to int erpret this result as normal/abnormal . SODIUM (test code = See_Comment [Automa abdullahi message] 2951-2) The system UGAME generated this result transmitted ref erence range: 133 - 14 6 MEQ/L. The refe rence range was not u sed to interpret this result as normal/abnor mal. POTASSIUM (test code = See_Comment [Aut omated message] 2823-3) The system UGAME generated this result transmitted ref erence range: 3.5 - 5. 4 MEQ/L. The refe rence range was not u sed to interpret this result as normal/abnor mal. CHLORIDE (test code = See_Comment H [Auto mated message] 2075-0) The system UGAME generated this result transmitted ref erence range: 95 - 107 MEQ/L. The refe rence range was not u sed to interpret this result as normal/abnor mal. CO2 (test code = 1963-8) See_Comment [A utomated message] The system UGAME generated this result transmitted ref erence range: 19 - 31 MEQ/L. The reference r stella was not used to interpret this result as normal/abnor mal. CALCIUM (test code = See_Comment Unless Otherwise 80137-6) Indicated, All Testing Perform ed At: [facility], [address] [place] [address], [place] [address] Laborator y Director: Dalton Pan M.D. CLIA Number [id number] [place] Accreditation [place] o. [id number] [Autom ated message] The sy stem which generated this result transmit abdullahi reference range : 8.5 - 10.5 MG/DL. T he reference range was not used to int erpret this result as normal/abnormal . Lab Interpretation (test Abnormal code = 12247-0) [facility] HospitalIRON+TIBC+%[id number] 09:08:03 Test Item Value Reference Range Interpretation Comments IRON (test code = See_Comment H [Automate d message] 2498-4) The system UGAME generated this result transmitted ref erence range: 59 - 158 UG/DL. The reference r stella was not used to interpret this result as normal/abnor mal. UIBC (test code = See_Comment L [Automate d message] 2501-5) The system UGAME generated this result transmitted ref erence range: 112 - 34 7 UG/DL. The refe rence range was not u sed to interpret this result as normal/abnor mal. TIBC (test code = See_Comment L [Automate d message] 58961-1) The system UGAME generated this result transmitted ref erence range: 250 - 45 0 UG/DL. The refe rence range was not u sed to interpret this result as normal/abnor mal. IRON SATURATION % (test 75 % 20-50 H Unl ess Otherwise code = 2502-3) Indicated, Al l Testing Performed At: [facility], [address] [place] [address] Laborator y Director: Dalton Pan M.D. CLIA Number [id number] [place] Accreditation N o. [id number] Lab Interpretation Abnormal (test code = 61493-7) [facility] [id number] 09:06:58 Test Item Value Reference Range Interpretation Comments PHOSPHORUS (test code = See_Comment Unl ess Otherwise 2777-1) Indicated, All Testing Performed At: [facility] [address] [place] [address] [facility] Director: Dalton Pan M.D. CLIA Number [id number] Cap Accreditation [place] o. [id number] [Autom ated message] The sy stem which generated this result transmit abdullahi reference range : 2.5 - 4.5 MG/DL. The reference range was not u sed to interpret this result as normal/abnormal . [facility] W/O DIFF W [id number] 07:47:30 Test Item Value Reference Range Interpretation Comments WHITE BLOOD CELL COUNT See_Comment [Aut omated message] (test code = 34359-4) The sy stem which generated this result transmitted ref erence range: 3.5 - 11 .0 K/UL. The refer ence range was not u sed to interpret this result as normal/abnor mal. RED BLOOD CELL COUNT See_Comment L [Autom ated message] (test code = 53509-5) The sy stem which generated this result [...] (test code = 22.6 % 40.0-51.0 L 19011-3) MEAN CORPUSCULAR VOLUME 99.6 fL 80.0-99.0 H (test code = 06811-6) MEAN CORPUSCULAR 35.2 PG 25.0-33.0 H HEMOGLOBIN (test code = 39651-1) MEAN CORPUSCULAR See_Comment [Automated message] HEMOGLOBIN CONC (test The sy stem which code = 82199-3) generated th is result transmitted ref erence range: 31 - 36 G/DL. The reference r stella was not used to interpret this result as normal/abnor mal. PLATELET COUNT (test See_Comment L Unless Otherwise code = 87562-3) Indicated, A ll Testing Perform ed At: [facility], [address] [place] [address], [place] [address] Laborator y Director: Dalton Pan M.D. CLIA Number [id number] [place] Accreditation [place] o. [id number] [Autom ated message] The sy stem which generated this result transmit abdullahi reference range : 130 - 400 K/UL. The reference range was not used to int erpret this result as normal/abnormal . Lab Interpretation (test Abnormal code = 17749-6) [facility] HospitalTACROLIMUS [id number] 11:13:00 Test Item Value Reference Range Interpretation Comments TACROLIMUS BLOOD 3.5 ng/mL 10.0-20.0 L Test perfor med on Colon (BEAKER) (test code Architec t Immunoassay = 657) system with Chemiluminescen t Microparticle I mmunoassay (CMIA) technolo gy. Academic Advisor ID - SAMY OOARCSOILF5182-34-24 06:49:00 Test Item Value Reference Range Interpretation Comments MAGNESIUM (BEAKER) (test code = 1.9 mg/dL 1.6-2.6 627) Academic Advisor ID - CASEY MBASIC METABOLIC [id number] 06:49:00 Test Item Value Reference Range Interpretation [...] S NOT APPLICABLE FOR DIALYSIS PATIEN TS. Academic Advisor ID - CASEY MSpecimen slightly ictericCBC W/PLT COUNT & AUTO [id number] 06:12:00 Test Item Value Reference Range Interpretation [...] PERCENT (BEAKER) (test code = 2801) TACROLIMUS [id number] 14:50:00 Test Item Value Reference Range Interpretation Comments TACROLIMUS BLOOD 8.7 ng/mL 10.0-20.0 L Test perfor med on Colon (BEAKER) (test code Architec t Immunoassay = 657) system with Chemiluminescen t Microparticle I mmunoassay (CMIA) technolo gyEloisa Academic Advisor ID - SKWWWITDHLFCMRII9907-53-64 11:10:00 Test Item Value Reference Range Interpretation Comments MAGNESIUM (BEAKER) (test code = 1.8 mg/dL 1.6-2.6 627) Academic Advisor ID - GENARO CSARS-COV2/RT-PCR ([facility])2020-09-25 09:54:00 Test Item Value Reference Range Interpretation Comments SARS-COV2/RT-PCR (test Negative Not Detected, Negative, code = 7875325) See external report for linked test SARS-COV-2 PERFORMING LAB [facility] (test code = 1386468) Negative result for this test determines that [...] justifying the authorization of the emergency use ofin vitro diagnostic tests for detection and/or diagnosis of COVID-19 is terminated under Section 564(b)(2) of the Act or the EUA is revoked under Section 564(g) of the Act.Fact Sheet for Healthcare Prov iders:https://www.[facility]/sites/default/files/product/documents/Fact_Sheet_HC _Wupaqmdwh_Jawf_GWKM-RyD-5.pdfFact Sheet for Healthcare Patients:https://www.[facility]/sites/default/files/product/docume nts/Xibt_Nszya_Jyflxiga_Rvrd_LIHX-ItY-0.pdfPerforming Laboratory:[facility], [place] [address]FKI, CHEST, 1 VIEW, NON [id number] 09:53:00Referring: Dr. Diane Eastman/ River for exam:- >ALTERED MENTAL STATUSShould this be performed at the bedside?->Yes [facility] 1955 Sex: MFINAL REPORT [...] MDReport Verified Date/Time: 09/25/2020 09:53:27 Reading Location: [address] Neuro Reading Room URINALYSIS W/ REFLEX URINE [id number] 04:36:00 Test Item Value Reference Range Interpretation [...] = 1584) SOURCE(BEAKER) (test code = 2795) Academic Advisor ID - [auto]Academic Advisor ID - techBASIC METABOLIC [id number] 03:24:00 Test Item Value Reference Range Interpretation [...] S NOT APPLICABLE FOR DIALYSIS PATIEN TS. Academic Advisor ID - CASEY Floresecimen slightly ictericHEPATIC FUNCTION [id number] 03:24:00 Test Item Value Reference Range Interpretation [...] (test code = 36 U/L 6-55 347) Academic Advisor ID [place] Floresecimen slightly dbjccouFLBLXPR3702-63-39 03:12:00 Test Item Value Reference Range Interpretation Comments AMMONIA (BEAKER) (test code = 348) 63 mol/L 18-72 Academic Advisor ID [place] PEÑA MPT/GOFF6353-34-03 03:11:00 Test Item Value Reference Range Interpretation [...] is 2.5-3.5 for patients wiht mechanical heart valves.CBC W/PLT COUNT & AUTO [id number] 03:10:00 Test Item Value Reference Range Interpretation [...] (test code = 2801) CT, BRAIN, WITHOUT [id number] 02:42:00Referring: Dr. Diane Eastman/ [place] for exam:->confusionWhat is the patient's sedation requirement?- >No SedationK[facility] : 1955 Sex: MFINAL REPORT [...] mass effect, herniation, hydrocephalus or large demarcated acuteterritorial infarct. The basal cisterns are patent. There are bilateral lens replacements. The visualized paranasal sinuses and tympanomastoid cavities are clear. The skull base and calvarium are intact. IMPRESSION: No acute intracranial hemorrhage, mass effect or hydrocephalus. Signed: David Yee MDReport Verified Date/Time: 09/25/2020 02:42:37 AFB CULTURE + SMEAR (NON-SPUTUM)2020-08-15 10:06:00 Test Item Value Reference Range Interpretation Comments CULTURE (BEAKER) (test No acid-fast bacilli code = 1095) isolated in 42 days AFB SMEAR (BEAKER) No acid fast bacilli (test code = 994) seen CMV PCR, [id number] 11:20:00 Test Item Value Reference Range Interpretation Comments CMV VIRAL LOAD - Testing per formed at POSITIVE (BEAKER) (test Ques t Diagnostics code = 1557) CMV VIRAL LOAD - Testing per formed at NEGATIVE (BEAKER) (test Ques t Diagnostics code = 2558) BLOOD [id number] 14:00:00 Test Item Value Reference Range Interpretation Comments CULTURE (BEAKER) (test No growth in 5 days code = 1095) BLOOD [id number] 12:00:00 Test Item Value Reference Range Interpretation Comments CULTURE (BEAKER) (test No growth in 5 days code = 1095) BASIC METABOLIC [id number] 06:37:00 Test Item Value Reference Range Interpretation [...] S NOT APPLICABLE FOR DIALYSIS PATIEN TS. Academic Advisor ID - PIAYA [id number] 06:30:00 Test Item Value Reference Range Interpretation Comments MAGNESIUM (BEAKER) (test code = 2.0 mg/dL 1.6-2.6 627) Academic Advisor ID - PIAYA LHEPATIC FUNCTION [id number] 06:30:00 Test Item Value Reference Range Interpretation [...] (test code = 30 U/L 6-55 347) Academic Advisor ID - PIAYA LPT/[id number] 06:05:00 Test Item Value Reference Range Interpretation [...] is 2.5-3.5 for patients wiht mechanical heart valves.CBC W/PLT COUNT & AUTO [id number] 05:55:00 Test Item Value Reference Range Interpretation [...] 0-1 PERCENT (BEAKER) (test code = 2801) [id number] 07:14:00 Test Item Value Reference Range Interpretation Comments MAGNESIUM (BEAKER) (test code = 2.0 mg/dL 1.6-2.6 627) Academic Advisor ID - PIAYA LHEPATIC FUNCTION [id number] 07:14:00 Test Item Value Reference Range Interpretation [...] (test code = 25 U/L 6-55 347) Academic Advisor ID - PIAYA LSpecimen slightly ictericBASIC METABOLIC [id number] 07:14:00 Test Item Value Reference Range Interpretation [...] S NOT APPLICABLE FOR DIALYSIS PATIEN TS. Academic Advisor ID - PIAYA LSpecimen slightly ictericPT/[id number] 06:20:00 Test Item Value Reference Range Interpretation [...] is 2.5-3.5 for patients wiht mechanical heart valves.CBC W/PLT COUNT & AUTO [id number] 06:16:00 Test Item Value Reference Range Interpretation [...] (test code = 2801) VITAMIN B12 AND [id number] 14:36:00 Test Item Value Reference Range Interpretation Comments VITAMIN B12 (BEAKER) (test code = 505 pg/mL 213-816 774) FOLATE (BEAKER) (test code = 362) 32.30 ng/mL >=7.00 Academic Advisor ID - EDASIOperator ID - [id number] 14:33:00 Test Item Value Reference Range Interpretation Comments FERRITIN (BEAKER) (test code = 425.01 ng/mL 5.00-275.00 H 361) Academic Advisor ID - EDASITSH/FREE T4 IF [id number] 14:28:00 Test Item Value Reference Range Interpretation Comments THYROID STIMULATING HORMONE 4.181 uIU/mL 0.350-4.940 (BEAKER) (test code = 772) Academic Advisor ID - DBIRON, TIBC, % SAT. (WITHOUT FERRITIN)2020-07-30 13:13:00 Test Item Value Reference Range Interpretation Comments IRON (BEAKER) (test code = 547) 90.0 ug/dL 40.0-160.0 TOTAL IRON BINDING CAPACITY 156 ug/dL 250-450 L (BEAKER) (test code = 769) IRON % SATURATION (2) (BEAKER) 58 % 20-55 H (test code = 2590) Academic Advisor ID - EDASIHEMOGLOBIN AND [id number] 12:48:00 Test Item Value Reference Range Interpretation Comments HEMOGLOBIN (BEAKER) (test code = 6.0 GM/DL 13.7-17.5 LL 410) HEMATOCRIT (BEAKER) (test code = 18.3 % 40.1-51.0 L 411) Academic Advisor ID - 6000U/S, ABDOMINAL, [id number] 09:00:00Referring: Dr. Diane Eastman/ KINA Labs to be ordered:->Body Fluid Culture (w/Gram Stain, C\\T\\S)Labs to be ordered:->Cell Count Reason for exam:->ALTERED MENTAL STATUSCH[facility] : 1955 Sex: MFINAL REPORT History: Ascites. PROCEDURE: Limited sonographic examination of the abdomen was performed in preparation for planned ultrasound- guided paracentesis. Limited sonographic examination of the abdomen showed no ascites. Therefore, paracentesis was not performed. IMPRESSION: 1. No ascites, not enough for planned paracentesis. Signed: Edmund Barraza MDReport Verified Date/Time: 07/30/2020 09:00:16 Reading Location: [address] Ultrasound Reading Room CBC W/PLT COUNT & AUTO [id number] 08:41:00 Test Item Value Reference Range Interpretation [...] 0-1 PERCENT (BEAKER) (test code = 2806) BASIC METABOLIC [id number] 07:50:00 Test Item Value Reference Range Interpretation [...] S NOT APPLICABLE FOR DIALYSIS PATIEN TS. Academic Advisor ID - EDASISpecimen slightly [id number] 07:49:00 Test Item Value Reference Range Interpretation Comments MAGNESIUM (BEAKER) (test code = 2.0 mg/dL 1.6-2.6 627) Academic Advisor ID - EDASIHEPATIC FUNCTION [id number] 07:49:00 Test Item Value Reference Range Interpretation [...] (test code = 29 U/L 6-55 347) Academic Advisor ID - EDASISpecimen slightly ictericPT/[id number] 07:38:00 Test Item Value Reference Range Interpretation [...] is 2.5-3.5 for patients wiht mechanical heart valves.SARS-COV2/INFLUENZA/RSV RT-PCR 2020-07-29 19:02:00 Test Item Value Reference Range Interpretation Comments SARS-COV2/RT-PCR Negative Negative (test code = 9368761) INFLUENZA A RT-PCR Negative Negative (test code = 3052925) INFLUENZA B RT-PCR Negative Negative (test code = 2369771) RSV RT-PCR (test Negative Negative Performance of the Xpert code = 7044790) Xpress SARS- CoV-2/Flu/RSV test has only b een established in nasopharyngeal swab specimens. Use of the Xpert Xpress SARS-CoV-2/Flu/ RSV test with other spec imen types has not been as sessed and performance characteristics are unknown. As wit h any molecular test, mutations within the targ eted genetic regions identified by t he Xpert Xpress SARS-CoV -2/Flu/RSV test could affe [...] to e clinician evalu ating the patient. Invali d test results may occ ur from improper specim en collection; mary lure to follow the jennifer mmended sample collecti on, handling, and s torage procedures; rafal hnical error. False ne gative results may occ ur if virus is presen t at levels below th e analytical limi t of detection (LOD: 131 copies/mL). Vir al nucleic acid may persis t in vivo, independent of virus viability. Dete ction of analyte target( s) does not imply that the corresponding v irus(es) are infectious or are the causative agent s for clinical sympto ms. Recent patient exposur e to FluMist or othe r live attenuated infl uenza vaccines may ca use inaccurate posi tive results.This te st has been authorized by FDA under an EUA fo r use by authorized labo ratmio. This test is on ly authorized for the duration of the declaration nu t circumstances e xist justifying the authorization o f emergency use o f in vitro diagnostic test s for detection and/o r diagnosis of CO VID-19 under Section 5 64(b)(1) of the Federal Food, Drug and Cosmetic Ac t, 21 U.S.C. 360bbb-3 (b)(1), unless the auth orization is terminated o r revoked sooner.Fact She et for Healthcare Prov iders: https://www.[employer].com/D ocuments/Xpert% 20Xpress%2 0YQVV-SyF-8-Flu -RSV/302-4 508%20Rev.%20B% 20HCP%20Fa ct%20Sheet.pdfF act Sheet for Healthcare Patients: https://www.[employer].com/D ocuments/Xpert% 20Xpress%2 7UCTA-UtJ-4-Flu -RSV/302-4 507%20Rev.%20B% 20Patient% 20Fact%20Sheet. pdf PROTEIN, RANDOM [id number] 16:42:00 Test Item Value Reference Range Interpretation Comments PROTEIN, URINE (BEAKER) (test code = 11 mg/dL 0-14 1569) Academic Advisor ID - DBSODIUM, RANDOM [id number] 16:42:00 Test Item Value Reference Range Interpretation Comments SODIUM URINE (BEAKER) (test code = 37 meq/L 243) Reference Range: No NormalsOperator ID - DBUREA NITROGEN, RANDOM [id number] 14:39:00 Test Item Value Reference Range Interpretation [...] Range: No NormalsOperator ID - SAMY MOSMOLALITY, [id number] 13:42:00 Test Item Value Reference Range Interpretation Comments OSMOLALITY URINE (BEAKER) (test 434 mOsm/kg 50-1,200 mOsm/kg code = 614) URINALYSIS W/ [id number] 13:42:00 Test Item Value Reference Range Interpretation [...] 1 /HPF SOURCE(BEAKER) (test code = 2795) Academic Advisor ID - [auto]Academic Advisor ID - [auto]LACTIC ACID, [id number] 13:02:00 Test Item Value Reference Range Interpretation Comments LACTATE BLOOD VENOUS (2) (BEAKER) 1.84 mmol/L 0.50-2.20 (test code = 2872) Academic Advisor ID - EDASISpecimen slightly ictericRAD, CHEST, 1 VIEW, NON DEPT 2020-07-29 12:11:00Referring: Dr. Diane Eastman/ [place] for exam:- >ALTERED MENTAL STATUSShould this be performed at the bedside?->Yes [facility] 1955 Sex: MFINAL REPORT CLINICAL HISTORY: ALTERED MENTAL STATUS TECHNIQUE: 1 view of the chest. COMPARISON: 07/04/2020 IMPRESSION: There is vaguely increased opacity projecting over the right lung zone, but no focal lobar consolidation at this time. There are trace bilateral pleural effusions.The cardiomediastinal silhouette is magnified by technique with sternotomy wires. Signed: Roe Isaac MDReport Verified Date/Time: 07/29/2020 12:11:10 Reading Location: [facility] Radiology Reading Room TROPONIN [id number] 11:30:00 Test Item Value Reference Range Interpretation [...] failure, acidosis, acute neurological disease, and persistent tachyarrhythmia.Academic Advisor ELIZABETH PABLO MBASIC METABOLIC [id number] 11:26:00 Test Item Value Reference Range Interpretation [...] S NOT APPLICABLE FOR DIALYSIS PATIEN TS. Academic Advisor ELIZABETH PABLO MSpecimen slightly ictericHEPATIC FUNCTION [id number] 11:26:00 Test Item Value Reference Range Interpretation [...] (test code = 34 U/L 6-55 347) Academic Advisor ID [place] Floresecimen slightly ictericPROTHROMBIN TIME/[id number] 11:23:00 Test Item Value Reference Range Interpretation [...] is 2.5-3.5 for patients wiht mechanical heart valves.LACTIC ACID, [id number] 11:20:00 Test Item Value Reference Range Interpretation Comments LACTATE BLOOD VENOUS (2) (BEAKER) 2.31 mmol/L 0.50-2.20 H (test code = 2872) Academic Advisor ID - SAMY Floresecimen slightly [id number] 11:16:00 Test Item Value Reference Range Interpretation Comments AMMONIA (BEAKER) (test 52 mol/L 18-72 Speci men slightly code = 348) hemolyzed Academic Advisor ID - SAMY MCT, BRAIN, WITHOUT [id number] 11:14:00Referring: Dr. Diane Eastman/ [place] for exam:->ALTERED MENTAL STATUSWhat is the patient's sedation requirement?->No Sedation [facility] : 1955 Sex: MFINAL REPORT CT, BRAIN, WITHOUT CONTRAST CLINICAL INDICATION: Unlisted Reason for ExamALTERED MENTAL STATUS COMPARISON: July [...] MDReport Verified Date/Time: 07/29/2020 11:14:58 Reading Location: [address] Neuro Reading Room Elec tronically signed by: FITZ FERNANDEZ MD on 07/29/2020 11:14 AMCBC W/PLT COUNT & AUTO [id number] 11:12:00 Test Item Value Reference Range Interpretation [...] (BEAKER) (test code = 2801) BLOOD GAS, [id number] 11:04:00 Test Item Value Reference Range Interpretation [...] (BEAKER) (test code = 1819) 21.0 POCT-GLUCOSE [id number] 10:23:00 Test Item Value Reference Range Interpretation Comments POC-GLUCOSE METER 114 mg/dL 70-110 H : TESTED A T [facility] 6720 (BEAKER) (test code = [place], 1538) [address]: Academic Advisor/Techni demetrice ID = [id number] for FITZ HOLDEN FUNGUS CULTURE + [id number] 23:36:00 Test Item Value Reference Range Interpretation Comments CULTURE (BEAKER) (test No fungus isolated in code = 1095) 28 days FUNGUS SMEAR (BEAKER) No fungi seen (test code = 1406) BODY FLUID CULTURE + GRAM [id number] 11:14:00 Test Item Value Reference Range Interpretation Comments CULTURE (BEAKER) (test code No growth = 1095) GRAM STAIN RESULT (BEAKER) <1+ WBCs (test code = 1123) GRAM STAIN RESULT (BEAKER) No organisms seen (test code = 03381) U/S, [id number] 22:47:00Referring: Dr. Diane Eastman/ Beto to be ordered:->Cell CountLabs to be ordered:->Body Fluid Culture (w/Gram Stain, C\\T\\S)Reason for exam:->ascites [facility] : 1955 Sex: MFINAL REPORT Ultrasound guided paracentesis Clinical History: Ascites. Sedation: None. Fishing Lure Assembler: Aure Huerta PA-C Supervising Physician: Denilson Liao MD Emergency Response Officer: None. Estimated Blood Loss: < 1 mL. Specimen: 3000 mL of clear yellow fluid, samples sent to laboratory. Technique: Informed consent was obtained. The risks of pain, bleeding, infection, bowel perforation, injury to adjacent structures, and adverse medication reactions were discussed with the patient.After informed consent was obtained, the patient's abdomen [...] anesthesia was achieved with lidocaine, a 5 Bermudian one-step catheter was advanced into the peritoneal cavity under ultrasound guidance. After completion of drainage, the catheter was removed. There was no evidence of complication. Impression:Successful ultrasound guided paracentesis. Signed: Denilson Liao Verified Date/Time: 07/08/2020 22:47:46 Reading Location: [facility] P006J Ultrasound Reading Room BLOOD [id number] 14:01:00 Test Item Value Reference Range Interpretation Comments CULTURE (BEAKER) (test No growth in 5 days code = 1095) BLOOD [id number] 13:02:00 Test Item Value Reference Range Interpretation Comments CULTURE (BEAKER) (test No growth in 5 days code = 1095) TACROLIMUS [id number] 11:01:00 Test Item Value Reference Range Interpretation Comments TACROLIMUS BLOOD 3.4 ng/mL 10.0-20.0 L Test perfor med on Colon (BEAKER) (test code Architec t Immunoassay = 657) system with Chemiluminescen t Microparticle I mmunoassay (CMIA) technolo gy. Academic Advisor ID - MARCELLE FCOMPREHENSIVE METABOLIC [id number] 07:32:00 Test Item Value Reference Range Interpretation [...] S NOT APPLICABLE FOR DIALYSIS PATIEN TS. Academic Advisor ID - CASEY MCBC W/PLT COUNT & AUTO [id number] 06:57:00 Test Item Value Reference Range Interpretation [...] (BEAKER) (test code = 2801) U/S, ABDOMINAL, [id number] 19:29:00Referring: Dr. Diane Eastman/ KINA doppler for TIPS assessment Reason for exam:->doppler for TIPS assessment [facility] : 1955 Sex: MFINAL REPORT TECHNIQUE: Grayscale [...] patent with intrastent velocities which range between 108-148cm/s. BILIARY:Gallbladder: Shadowing gallstones are present within the gallbladder. Gallbladder rex thickened to 0.6 cm which is nonspecific in the setting of cirrhosis. No gallbladder wall thickening, pericholecystic fluid, or distention. Negative sonographic Baltazar sign.Common bile duct measures0.4 cm, within normal limits. No intrahepatic biliary ductal dilatation. PANCREAS: Incompletely visualized due to overlying bowel gas. SPLEEN: Mild splenomegaly. The spleen measures 15.2 cm PERITONEUM:Small volume free fluid. KIDNEYS: Right kidney has [...] hepatic and portal vasculature is patent with n ormal flow directionality. 3. Cholelithiasis. Signed: Ken Huerta MDReport Verified Date/Time: 07/06/2020 19:29:38 U/S, DUPLEX, [id number] 19:29:00Referring: Dr. Diane Eastman/ KINA doppler for TIPS assessment Reason for exam:->doppler for TIPS assessment [facility] : 1955 Sex: MFINAL REPORT TECHNIQUE: Grayscale ultrasound of the abdomen with color Dopplerand spectral Doppler ultrasound of the portal/hepatic vasculature. [...] Ken Huerta MDReport Verified Date/Time: 07/06/2020 19:29:38 BODY FLUID CELL COUNT WITH [id number] 18:12:00 Test Item Value Reference Range Interpretation [...] = 2873) BODY FLUID CULTURE + GRAM [id number] 13:45:00 Test Item Value Reference Range Interpretation Comments CULTURE (BEAKER) (test code No growth = 1095) GRAM STAIN RESULT (BEAKER) <1+ WBCs (test code = 1123) GRAM STAIN RESULT (BEAKER) No organisms seen (test code = 90157) BODY FLUID CULTURE + GRAM [id number] 13:44:00 Test Item Value Reference Range Interpretation Comments CULTURE (BEAKER) (test code No growth = 1095) GRAM STAIN RESULT (BEAKER) 1+ WBCs (test code = 1123) GRAM STAIN RESULT (BEAKER) No organisms seen (test code = 10220) [id number] 11:44:00Medical Cytology Report Case: [id number] Authorizing Provider: Peter Mercado MD Collected: 07/03/2020 02:54 PM Ordering Location: [facility] Emergency Department Received: 07/04/2020 02:19 PM Pathologist: Angella Delgado MD Specimen: Paracentesis PERITONEAL FLUID (CYTOSPINS AND CELL BLOCK): - NEGATIVE FOR MALIGNANCY - Mixed inflammation (chronic and acute) Signing Pathologist Direct Phone Line: [phone] signed by Angella Delgado MD on 07/06/2020 at 11:44 [id number]; common variable immunodeficiency, bronchiectasis/COPD s/p bilateral lung transplant (2015), 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 [facility], Department of Pathology, [address] [place] [address], [facility], Department of [facility]ology, [address] [place] [address], [facility], Department ofPathology, [address] [place] [address], FYUQEHJSSC [id number] 10:33:00 Test Item Value Reference Range Interpretation Comments TACROLIMUS BLOOD 3.2 ng/mL 10.0-20.0 L Test perfor med on Colon (BEAKER) (test code Architec t Immunoassay = 657) system with Chemiluminescen t Microparticle I mmunoassay (CMIA) technolo gy. Academic Advisor ID - EMERSONCOMPREHENSIVE METABOLIC [id number] 08:12:00 Test Item Value Reference Range Interpretation [...] S NOT APPLICABLE FOR DIALYSIS PATIEN TS. Academic Advisor ID - ADMINSpecimen slightly ictericCBC W/PLT COUNT & AUTO [id number] 08:02:00 Test Item Value Reference Range Interpretation [...] (BEAKER) (test code = 2801) URINALYSIS W/ [id number] 16:50:00 Test Item Value Reference Range Interpretation [...] = 1521) SOURCE(BEAKER) (test code = 2795) Academic Advisor ID - [auto]Academic Advisor ID - techSODIUM, RANDOM [id number] 16:49:00 Test Item Value Reference Range Interpretation Comments SODIUM URINE (BEAKER) (test code = 27 meq/L 243) Reference Range: No NormalsOperator ID - ADMINALBUMIN PERITONEAL [id number] 15:03:00 Test Item Value Reference Range Interpretation Comments ALBUMIN, PERITONEAL FLUID (BEAKER) 0.8 (test code = 5634737) TACROLIMUS [id number] 11:19:00 Test Item Value Reference Range Interpretation Comments TACROLIMUS BLOOD 2.2 ng/mL 10.0-20.0 L Test perfor med on Colon (BEAKER) (test code Architec t Immunoassay = 657) system with Chemiluminescen t Microparticle I mmunoassay (CMIA) technolo whitley. Academic Advisor ID - SAMY MCOMPREHENSIVE METABOLIC [id number] 06:56:00 Test Item Value Reference Range Interpretation [...] S NOT APPLICABLE FOR DIALYSIS PATIEN TS. Academic Advisor ID - JUNO WSpecimen slightly ictericCBC W/PLT COUNT & AUTO [id number] 05:38:00 Test Item Value Reference Range Interpretation [...] PERCENT (BEAKER) (test code = 2801) SARS-COV2/RT-PCR ([facility])2020-07-04 17:49:00 Test Item Value Reference Range Interpretation Comments SARS-COV2/RT-PCR (test Negative Not Detected, Negative, code = 6066389) See external report for linked test SARS-COV-2 PERFORMING LAB [facility] (test code = 9675332) Negative result for this test determines that [...] justifying the authorization of the emergency use ofin vitro diagnostic tests for detection and/or diagnosis of COVID-19 is terminated under Section 564(b)(2) of the Act or the EUA is revoked under Section 564(g) of the Act.Fact Sheet for Healthcare Prov iders:https://www.[facility]/sites/default/files/product/documents/Fact_Sheet_HC _Pihvtidcw_Mqtx_PRBN-MwT-8.pdfFact Sheet for Healthcare Patients:https://www.[facility]/sites/default/files/product/docume nts/Vrtk_Boied_Kzabdyjg_Bhlu_PMAN-UmU-9.pdfPerforming Laboratory:[facility], [place] [id number] 13:40:00 Test Item Value Reference Range Interpretation Comments PHOSPHORUS (BEAKER) (test code = 4.1 mg/dL 2.3-4.7 604) Academic Advisor ID - CASEY MRAD, CHEST, 1 VIEW, NON [id number] 12:56:00Referring: Dr. Diane Eastman/ [place] for exam:->lung transplantShould this be performed at the bedside?->Yes [facility] 1955 Sex: MFINAL REPORT [...] MDReport Verified Date/Time: 07/04/2020 12:56:55 Reading Location: [facility] Radiology Reading Room SARS-COV2/RT-PCR ([facility])2020-07-04 09:52:00 Test Item Value Reference Range Interpretation Comments SARS-COV2/RT-PCR (test Negative Not Detected, Negative, code = 1795994) See external report for linked test SARS-COV-2 PERFORMING LAB [facility] (test code = 6828041) Negative result for this test determines that [...] justifying the authorization of the emergency use ofin vitro diagnostic tests for detection and/or diagnosis of COVID-19 is terminated under Section 564(b)(2) of the Act or the EUA is revoked under Section 564(g) of the Act.Fact Sheet for Healthcare Prov iders:https://www.[facility]/sites/default/files/product/documents/Fact_Sheet_HC _Hvejchbda_Lilr_SJMS-AbQ-6.pdfFact Sheet for Healthcare Patients:https://www.[facility]/sites/default/files/product/docume nts/Iqdd_Qoarq_Fijljeqt_Nbbx_OUII-WlA-8.pdfPerforming Laboratory:[place] [address], [place] [address]OTEEVBXTNASOV METABOLIC [id number] 07:04:00 Test Item Value Reference Range Interpretation [...] S NOT APPLICABLE FOR DIALYSIS PATIEN TS. Academic Advisor ID - PIAYA LSpecimen slightly ictericCBC W/PLT COUNT & AUTO [id number] 06:15:00 Test Item Value Reference Range Interpretation [...] PERCENT (BEAKER) (test code = 2801) U/S, [id number] 19:33:00Referring: Dr. Diane Eastman/ Beto to be ordered:->No Labs NeededLabs to be ordered:->AFBCulture with StainLabs to be ordered:->Body Fluid Culture (w/Gram Stain, C\\T\\S)Labs to be ordered:- >CytologyLabs to be ordered:->Glucose+LDH+ProteinReason for exam:- >HYPOTENSIONReason for exam:->ALTERED MENTAL STATUS [facility] 1955 Sex: MFINAL REPORT PROCEDURE: Ultrasound-guided paracentesis. INDICATION: Ascites. DESCRIPTION: After obtaining informed written consent, ultrasound scan of the abdomen identified ascites in the right lower quadrant. The overlying skin was prepped and draped in the usual, sterile fashion and local 2% lidocaine anesthesia was administered. A 5 Bermudian catheter was advanced into the perito javed cavity and 2000 mL of clear yellow fluid was removed. The catheter was removed without immediate complication. Samples were sent for analysis. IMPRESSION:Uncomplicated ultrasound-guided paracentesis with 2000 mL of fluid removed. Signed: Mina Mcmahan MDReport Verified Date/Time: 07/03/2020 19:33:14 Reading Location: [facility] B1 C013Y CT Body Reading Room Electronically signed by: MINA MCMAHAN MD on07/03/2020 07:33 PMAMYLASE PERITONEAL [id number] 18:31:00 Test Item Value Reference Range Interpretation Comments AMYLASE, PERITONEAL FLUID (test code = 22 U/L See Comment 2856493) Amylase activity in peritoneal fluids of non-pancreatic origin is often less than or equal to the amylase activity in blood, whereas elevated amylase activity has been reported in fluid of pancreatic origin (five-folds or higher compared to contemporaneously collected blood specimen).This test has been modified from the manager mail's instructions and its performance characteristics were determined by [facility]. The laboratory is regulated under CLIA as qualified to perform high-complexity testing. This test has not been cleared or approved by the U.S. Food and Drug Administration. The reference intervals and other method performance specifications are unavailable for amylase in peritoneal fluid. Comparison of this result with the blood amylase is recommended.Academic Advisor ID - DBBODY FLUID CELL COUNT WITH [id number] 16:01:00 Test Item Value Reference Range Interpretation [...] (test code = 2873) CT, BRAIN, WITHOUT [id number] 12:39:00Referring: Dr. Diane Eastman/ [place] for exam:->ALTERED MENTAL STATUSWhat is the patient's sedation requirement?->No Sedation [facility] 1955 Sex: MFINAL REPORT CT, BRAIN, WITHOUT CONTRAST INDICATION: Altered mental statusALTERED MENTAL STATUS TECHNIQUE: Noncontrast axial imaging was obtained from the vertex to the skull base. Axial images were reconstructed using a bone algorithm. DOSE REDUCTION: Dose modulation, iterative reconstruction, and/or weight-based adjustment of the mA/kV was utilized to reduce the radiation doseto as low as reasonably achievable. COMPARISON: None. FINDINGS: Intracranial: No intracranial hemorrhage or abnormal extra-axial collection. No evidence of acute territorial infarct. No mass effect. Nohydrocephalus. Mild generalized cerebral volume loss. Scattered foci of hypoattenuation within the periventricular and subcortical white matter are a nonspecific finding commonly attributed to chronic small vessel ischemic disease. Osseous structures: No fracture. No suspicious lesion. Paranasal sinuses and mastoid air cells: No evidence of sinusitis. Mastoids are clear. Orbital contents: Globes are intact. IMPRESSION: No acute intracranial hemorrhage or CT evidence of territorial infarct. If there is persistent clinical concern for intracranial pathology, MR examination is recommended for further characterization. Signed: Meservy, Lorraine MDReport Verified Date/Time: 07/03/2020 12:39:26 COMPREHENSIVE METABOLIC [id number] 12:20:00 Test Item Value Reference Range Interpretation [...] S NOT APPLICABLE FOR DIALYSIS PATIEN TS. Academic Advisor ID - GENARO CSpecimen slightly ictericCBC W/PLT COUNT & AUTO [id number] 12:19:00 Test Item Value Reference Range Interpretation [...] 0-1 PERCENT (BEAKER) (test code = 2801) [id number] 12:09:00 Test Item Value Reference Range Interpretation Comments PARTIAL THROMBOPLASTIN TIME 32.6 seconds 22.5-36.0 ([facility]) (test code = 760) POCT-GLUCOSE [id number] 12:08:00 Test Item Value Reference Range Interpretation Comments POC-GLUCOSE METER 108 mg/dL 70-110 : TESTED A T [facility] 6720 ([facility]) (test code = [place], 1538) [address]: Academic Advisor/Techni demetrice ID = [id number] for CL AVERIA, FRED PROTHROMBIN [id number] 12:08:00 Test Item Value Reference Range Interpretation Comments PROTIME ([facility]) (test code = 17.0 seconds 11.9-14.2 H 759) INR ([facility]) (test code = 370) 1.42 <=5.90 Effective 11/26/2018: PT Reference Range ChangeNew: 11.9-14.2 Previous: 11.7- 14.7RECOMMENDED COUMADIN/WARFARIN INR THERAPY RANGESSTANDARD DOSE: 2.0-3.0 Includes: PROPHYLAXIS for venous thrombosis, systemic embolization; TREATMENT for venous thrombosis and/or pulmonary embolus.HIGH RISK: Target INR is 2.5-3.5 for patients wiht mechanical heart valves.LACTIC ACID, [id number] 12:06:00 Test Item Value Reference Range Interpretation Comments LACTATE BLOOD VENOUS 1.69 mmol/L 0.50-2.20 Specime n slightly (2) ([facility]) (test hemolyzed code = 2872) Academic Advisor ID - GENARO CSpecimen slightly [id number] 11:59:00 Test Item Value Reference Range Interpretation Comments AMMONIA (NOLVIA) (test code = 348) 61 mol/L 18-72 Academic Advisor ID - GENARO TERCC-[id number] 14:05:00 Test Item Value Reference Range Interpretation Comments POC-CREATININE 2.0 mg/dL 0.6-1.3 H : TESTED AT [facility] ([facility]) (test [address] code = 1859) [place], [address]: Academic Advisor/Techni demetrice ID = [id number] for Edquilang, Yolanda fe POC-EGFR ([facility]) 34 mL/min/1.73M2 (test code = 1860) CMV PCR, [id number] 11:44:00 Test Item Value Reference Range Interpretation Comments CMV VIRAL LOAD - Testing don e at [facility] POSITIVE (BEAKER) (test Diag nostics code = 1557) CMV VIRAL LOAD - Testing don e at [facility] NEGATIVE (BEAKER) (test Diag nostics code = 2558) BLOOD [id number] 23:00:00 Test Item Value Reference Range Interpretation Comments CULTURE (BEAKER) (test No growth in 5 days code = 1095) BLOOD [id number] 19:01:00 Test Item Value Reference Range Interpretation Comments CULTURE (BEAKER) (test No growth in 5 days code = 1095) TACROLIMUS [id number] 08:47:00 Test Item Value Reference Range Interpretation Comments TACROLIMUS BLOOD 3.6 ng/mL 10.0-20.0 L Test perfor med on Colon (BEAKER) (test code Architec t Immunoassay = 657) system with Chemiluminescen t Microparticle I mmunoassay (CMIA) technolo gy. Academic Advisor ID - AAHAMIDBASIC METABOLIC [id number] 06:07:00 Test Item Value Reference Range Interpretation [...] S NOT APPLICABLE FOR DIALYSIS PATIEN TS. Academic Advisor ID - CASEY [id number] 06:07:00 Test Item Value Reference Range Interpretation Comments MAGNESIUM (BEAKER) (test code = 1.8 mg/dL 1.6-2.6 627) Academic Advisor ID - CASEY MCBC W/PLT COUNT & AUTO [id number] 04:57:00 Test Item Value Reference Range Interpretation [...] = 2801) CBC W/PLT COUNT & AUTO [id number] 06:45:00 Test Item Value Reference Range Interpretation [...] (BEAKER) (test code = 2801) BASIC METABOLIC [id number] 04:53:00 Test Item Value Reference Range Interpretation [...] S NOT APPLICABLE FOR DIALYSIS PATIEN TS. Academic Advisor ID - CASEY MCBC W/PLT COUNT & AUTO [id number] 04:31:00 Test Item Value Reference Range Interpretation [...] 0-1 PERCENT (BEAKER) (test code = 2801) [id number] 04:29:00 Test Item Value Reference Range Interpretation Comments MAGNESIUM (BEAKER) (test code = 1.7 mg/dL 1.6-2.6 627) Academic Advisor ELIZABETH - CASEY [id number] 17:55:00 Test Item Value Reference Range Interpretation Comments FERRITIN (BEAKER) (test code = 338.04 ng/mL 5.00-275.00 H 361) Academic Advisor ID - BSIRON, TIBC, % SAT. (WITHOUT FERRITIN)2020-06-21 17:42:00 Test Item Value Reference Range Interpretation Comments IRON (BEAKER) (test code = 547) 79.0 ug/dL 40.0-160.0 TOTAL IRON BINDING CAPACITY 74 ug/dL 250-450 L (BEAKER) (test code = 769) IRON % SATURATION (2) (BEAKER) 107 % 20-55 H (test code = 2590) Academic Advisor ID - [id number] 11:24:00 Test Item Value Reference Range Interpretation Comments PHOSPHORUS (BEAKER) (test code = 2.0 mg/dL 2.3-4.7 L 604) Academic Advisor ID - ROSIANGSARS-COV2/RT-PCR ([facility])2020-06-21 09:14:00 Test Item Value Reference Range Interpretation Comments SARS-COV2/RT-PCR (test Negative Not Detected, Negative, code = 5300707) See external report for linked test SARS-COV-2 PERFORMING LAB [facility] (test code = 6261887) Negative result for this test determines that [...] justifying the authorization of the emergency use ofin vitro diagnostic tests for detection and/or diagnosis of COVID-19 is terminated under Section 564(b)(2) of the Act or the EUA is revoked under Section 564(g) of the Act.Fact Sheet for Healthcare Prov iders:https://www.[facility]/sites/default/files/product/documents/Fact_Sheet_HC _Kgcapeqfl_Kity_QNUY-TxC-2.pdfFact Sheet for Healthcare Patients:https://www.[facility]/sites/default/files/product/docume nts/Rlwk_Wwlyx_Hstdtxuj_Lvbt_FZXI-OlP-5.pdfPerforming Laboratory:[facility], [place] [address]YLFSF METABOLIC PANEL 2020-06-21 05:39:00 Test Item Value [...] S NOT APPLICABLE FOR DIALYSIS PATIEN TS. Academic Advisor ELIZABETH HILL LSpecimen slightly [id number] 05:21:00 Test Item Value Reference Range Interpretation Comments MAGNESIUM (BEAKER) (test code = 1.6 mg/dL 1.6-2.6 627) Academic Advisor ELIZABETH HILL LCBC W/PLT COUNT & AUTO [id number] 04:40:00 Test Item Value Reference Range Interpretation [...] (BEAKER) (test code = 2801) LACTIC ACID, [id number] 20:16:00 Test Item Value Reference Range Interpretation Comments LACTATE BLOOD VENOUS (2) (BEAKER) 2.38 mmol/L 0.50-2.20 H (test code = 2872) Academic Advisor ID - BSCOMPREHENSIVE METABOLIC [id number] 19:14:00 Test Item Value Reference Range Interpretation [...] S NOT APPLICABLE FOR DIALYSIS PATIEN TS. Academic Advisor ID - BSSpecimen slightly [id number] 18:54:00 Test Item Value Reference Range Interpretation Comments PARTIAL THROMBOPLASTIN TIME 37.1 seconds 22.5-36.0 H (BEAKER) (test code = 760) PROTHROMBIN [id number] 18:53:00 Test Item Value Reference Range Interpretation [...] is 2.5-3.5 for patients wiht mechanical heart valves.LACTIC ACID, [id number] 18:48:00 Test Item Value Reference Range Interpretation Comments LACTATE BLOOD VENOUS (2) (BEAKER) 2.89 mmol/L 0.50-2.20 H (test code = 2872) Academic Advisor ID - BSCBC W/PLT COUNT & AUTO [id number] 18:38:00 Test Item Value Reference Range Interpretation [...] = 2801) BODY FLUID CELL COUNT WITH [id number] 17:52:00 Test Item Value Reference Range Interpretation [...] Container (BEAKER) (test code = 2873) U/S, [id number] 16:42:00Referring: Dr. Diane Eastman/ Semaj ascitic fluid for cell count and differential If Cr > 1.5, do not remove more than 3.5L of ascitic fluid. If > 3L removed, please administer 200 mL of albumin 25% (50 grams) IV x 1Labs to be ordered:->Cell CountLabs to be ordered:->Other (please add comment)Reason for Exam:->ascites [facility] 1955 Sex: MFINAL REPORT Ultrasound guided paracentesis, 06/17/2020. Clinical History: Ascites. Sedation: None. Fishing Lure Assembler: Lola. Emergency Response Officer: None. Estimated Blood Loss: < 1 cc. [...] quadrant of the abdomen was selected for paracentesis.After the largest fluid pocket area was marked, and the anterior abdominal wall was evaluated with color Doppler to exclude presence of blood vessels traversing the area, the skin was prepped and draped in the usual sterile manner. After local anesthesia was achieved with 1% lidocaine, a 5 Bermudian one-step catheter was advanced into the peritoneal cavity under ultrasound guidance. After completion of drainage, the catheter was removed. There was no evidence of complication. Patient Disposition: The patient was discharged from the ultrasound department after the paracentesis, in good condition. Impression:Successful ultrasound guided paracentesis. Signed: Rohit Ruth Verified Date/Time: 06/17/2020 16:42:07 Reading Location: [place] [address] Angio Body Reading Room BASIC METABOLIC PANEL 2020-06-17 12:29:00 Test Item Value Reference Range Interpretation [...] S NOT APPLICABLE FOR DIALYSIS PATIEN TS. Academic Advisor ID - PIAYA LSpecimen slightly ictericHEPATIC FUNCTION [id number] 11:27:00 Test Item Value Reference Range Interpretation [...] (test code = 27 U/L 6-55 347) Academic Advisor ELIZABETH - SERGIO Rivera slightly ictericPROTHROMBIN TIME/[id number] 11:04:00 Test Item Value Reference Range Interpretation [...] is 2.5-3.5 for patients wiht mechanical heart valves.CBC W/PLT COUNT & AUTO [id number] 10:57:00 Test Item Value Reference Range Interpretation [...] PERCENT (BEAKER) (test code = 2801) U/S, [id number] 11:34:00Referring: Dr. Diane Eastman/ Semaj ascitic fluid for cell count and differential If Cr > 1.5, do not remove more than 4L of ascitic fluid. If > 3L removed, please administer 200 mL of albumin 25% (50 grams) IV x 1Labs to be ordered:->Other (please add comment)Labs to be ordered:->CellCountReason for Exam:->ascites [facility] 1955 Sex: MFINAL REPORT Ultrasound guided paracentesis Clinical History: Ascites. Sedation: None. Fishing Lure Assembler: Aure Huerta PA-C Supervising Physician: Sixto Martinez MD Emergency Response Officer: None. Estimated Blood Loss: < 1 mL. Specimen: 3000 mL of clear yellow fluid, samples sent to laboratory. Technique: Informed consent was obtained. The risks of pain, bleeding, infection, bowel perforation, injury to adjacent structures, and adverse medication reactions were discussed with the patient. After informed consent was obtained, the patient's abdomen was scanned. The right lower quadrant ofthe abdomen was selected for paracentesis. After the largest fluid pocket area was marked, and the anterior abdominal wall was evaluated with color Doppler to exclude presence of blood vessels traversing the area, the skin was prepped and draped in the usual sterile manner. After local anesthesia was achieved with lidocaine, a 5 Bermudian one-step catheter was advanced into the peritoneal cavity under ultrasound guidance. After completion of drainage, the catheter was removed. There was no evidence of complication. Impression:Successful ultrasound guided paracentesis. Signed: Sixto Martinez MDReport Verified Date/Time: 06/13/2020 11:34:44 Reading Location: [address] Ultrasound Reading Room BODY FLUID CELL COUNT WITH [id number] 18:14:00 Test Item Value Reference Range Interpretation [...] Container (BEAKER) (test code = 2873) PROTHROMBIN TIME/[id number] 13:40:00 Test Item Value Reference Range Interpretation [...] is 2.5-3.5 for patients wiht mechanical heart valves.[id number] 13:40:00 Test Item Value Reference Range Interpretation Comments PARTIAL THROMBOPLASTIN TIME 36.6 seconds 22.5-36.0 H (BEAKER) (test code = 760) CBC W/PLT COUNT & AUTO [id number] 13:30:00 Test Item Value Reference Range Interpretation [...] (BEAKER) (test code = 2801) MISCELLANEOUS LAB [id number] 11:48:00 Test Item Value Reference Range Interpretation Comments SCAN RESULT (test code = 3489307) TACROLIMUS [id number] 12:17:00 Test Item Value Reference Range Interpretation Comments TACROLIMUS BLOOD (BEAKER) (test 7.5 ng/mL 10.0-20.0 L code = 657) Academic Advisor ID - MARCELLE FPOCT-GLUCOSE [id number] 08:31:00 Test Item Value Reference Range Interpretation Comments POC-GLUCOSE METER 119 mg/dL 70-110 H : TESTED A T [facility] 6720 (BEAKER) (test code = [place], 1538) [address]: Academic Advisor/Techni demetrice ID = [id number] for Adams Ordaz BASIC METABOLIC [id number] 06:20:00 Test Item Value Reference Range Interpretation [...] S NOT APPLICABLE FOR DIALYSIS PATIEN TS. Academic Advisor ID - [id number] 06:18:00 Test Item Value Reference Range Interpretation Comments MAGNESIUM (BEAKER) (test code = 1.8 mg/dL 1.6-2.6 627) Academic Advisor ID - [id number] 06:18:00 Test Item Value Reference Range Interpretation Comments PHOSPHORUS (BEAKER) (test code = 4.2 mg/dL 2.3-4.7 604) Academic Advisor ID - EDASIHEPATIC FUNCTION [id number] 06:18:00 Test Item Value Reference Range Interpretation [...] (test code = 15 U/L 6-55 347) Academic Advisor ID - EDASICBC W/PLT COUNT & AUTO [id number] 06:07:00 Test Item Value Reference Range Interpretation [...] PERCENT (BEAKER) (test code = 2801) PROTHROMBIN [id number] 06:04:00 Test Item Value Reference Range Interpretation [...] is 2.5-3.5 for patients wiht mechanical heart valves.B-TYPE NATRIURETIC FACTOR (BNP) 2020-05-01 06:00:00 Test Item Value Reference Range Interpretation Comments B-TYPE NATRIURETIC PEPTIDE (BEAKER) 996 pg/mL 0-100 H (test code = 700) Academic Advisor ID - DBPOCT-GLUCOSE [id number] 13:59:00 Test Item Value Reference Range Interpretation Comments POC-GLUCOSE METER 123 mg/dL 70-110 H : TESTED A T [facility] 6720 ([employer]) (test code = [facility] [employer] [facility], 1538) [address]: Academic Advisor/Techni demetrice ID = [id number] for LEE, JOSE LUIS BEL POCT-GLUCOSE [id number] 13:54:00 Test Item Value Reference Range Interpretation Comments POC-GLUCOSE METER 78 mg/dL 70-110 : TESTED A T [facility] 6720 ([employer]) (test code = [facility] [employer] [facility], 1538) [address]: Academic Advisor/Techni demetrice ID = [id number] for HARDY EMAYOR, KASSY TACROLIMUS [id number] 10:49:00 Test Item Value Reference Range Interpretation Comments TACROLIMUS BLOOD ([employer]) (test 10.9 ng/mL 10.0-20.0 code = 657) Academic Advisor ID - JUNO WCBC W/PLT COUNT & AUTO [id number] 06:48:00 Test Item Value Reference Range Interpretation [...] (BEAKER) (test code = 2801) BASIC METABOLIC [id number] 06:35:00 Test Item Value Reference Range Interpretation [...] S NOT APPLICABLE FOR DIALYSIS PATIEN TS. Academic Advisor ID - CASEY [id number] 06:25:00 Test Item Value Reference Range Interpretation Comments MAGNESIUM (BEAKER) 1.8 mg/dL 1.6-2.6 Specimen slightly (test code = 627) hemolyzed Academic Advisor ID - CASEY [id number] 06:25:00 Test Item Value Reference Range Interpretation Comments PHOSPHORUS (BEAKER) 4.5 mg/dL 2.3-4.7 Specimen slightly (test code = 604) hemolyzed Academic Advisor ID - CASEY MHEPATIC FUNCTION [id number] 06:25:00 Test Item Value Reference Range Interpretation [...] Specimen slightly (test code = 347) hemolyzed Academic Advisor ID - CASEY MB-TYPE NATRIURETIC FACTOR (BNP)2020-04-30 06:20:00 Test Item Value Reference Range Interpretation Comments B-TYPE NATRIURETIC PEPTIDE (BEAKER) 890 pg/mL 0-100 H (test code = 700) Academic Advisor ID - EDASIPROTHROMBIN TIME/[id number] 06:11:00 Test Item Value Reference Range Interpretation [...] is 2.5-3.5 for patients wiht mechanical heart valves.BLOOD [id number] 21:00:00 Test Item Value Reference Range Interpretation Comments CULTURE (BEAKER) (test No growth in 5 days code = 1095) BLOOD [id number] 21:00:00 Test Item Value Reference Range Interpretation Comments CULTURE (BEAKER) (test No growth in 5 days code = 1095) POCT-GLUCOSE [id number] 12:11:00 Test Item Value Reference Range Interpretation Comments POC-GLUCOSE METER 84 mg/dL 70-110 : TESTED A T [facility] 6720 (BEAKER) (test code = [place], 1538) [address]: Academic Advisor/Techni demetrice ID = [id number] for Yosi itAdams TACROLIMUS [id number] 08:57:00 Test Item Value Reference Range Interpretation Comments TACROLIMUS BLOOD (BEAKER) (test 7.8 ng/mL 10.0-20.0 L code = 657) Academic Advisor ID - JUNO WPOCT-GLUCOSE [id number] 08:34:00 Test Item Value Reference Range Interpretation Comments POC-GLUCOSE METER 81 mg/dL 70-110 : TESTED A T [facility] 6720 (BEAKER) (test code = [place], [address]38) [address]: Academic Advisor/Techni demetrice ID = [id number] for Yosi it, Kyaira BASIC METABOLIC [id number] 07:02:00 Test Item Value Reference Range Interpretation [...] S NOT APPLICABLE FOR DIALYSIS PATIEN TS. Academic Advisor ID - EDASIB-TYPE NATRIURETIC FACTOR (BNP)2020-04-29 06:49:00 Test Item Value Reference Range Interpretation Comments B-TYPE NATRIURETIC PEPTIDE (BEAKER) 948 pg/mL 0-100 H (test code = 700) Academic Advisor ID - [id number] 06:46:00 Test Item Value Reference Range Interpretation Comments MAGNESIUM (BEAKER) (test code = 1.8 mg/dL 1.6-2.6 627) Academic Advisor ID - [id number] 06:46:00 Test Item Value Reference Range Interpretation Comments PHOSPHORUS (BEAKER) (test code = 4.1 mg/dL 2.3-4.7 604) Academic Advisor ID - EDASIHEPATIC FUNCTION [id number] 06:46:00 Test Item Value Reference Range Interpretation [...] (test code = 11 U/L 6-55 347) Academic Advisor ID - EDASIPROTHROMBIN TIME/[id number] 06:41:00 Test Item Value Reference Range Interpretation [...] is 2.5-3.5 for patients wiht mechanical heart valves.CBC W/PLT COUNT & AUTO [id number] 06:40:00 Test Item Value Reference Range Interpretation [...] PERCENT (BEAKER) (test code = 2801) POCT-GLUCOSE [id number] 21:59:00 Test Item Value Reference Range Interpretation Comments POC-GLUCOSE METER 90 mg/dL 70-110 : TESTED A T [facility] 6720 (BEAKER) (test code = [address] [place], 153) [address]: Academic Advisor/Techni demetrice ID = [id number] for KALL ON, KAM POCT-GLUCOSE [id number] 17:53:00 Test Item Value Reference Range Interpretation Comments POC-GLUCOSE METER 87 mg/dL 70-110 : TESTED A T [facility] 6720 (BEAKER) (test code = [address], 1538) [address]: Academic Advisor/Techni demetrice ID = [id number] for Yosi it, Kyaira POCT-GLUCOSE [id number] 12:31:00 Test Item Value Reference Range Interpretation Comments POC-GLUCOSE METER 69 mg/dL 70-110 L : TESTED A T [facility] 6720 (BEAKER) (test code = [address] [facility], 1538) [address]: Academic Advisor/Techni demetrice ID = [id number] for Yosi it, Kyaira U/S, PELVIS, WITH [id number] 12:18:00Referring: Dr. Diane Eastman/ [place] for exam:->pre-kidney transplant evaluation of pelvic vessels [facility] 1955 Sex: MFINAL REPORT TECHNIQUE: Grayscale, color Doppler, and spectral Doppler ultrasound of the distal aorta and bilateral iliac arteries. INDICATION: 64-year-old man for renal transplantevaluation. COMPARISON: None. FINDINGS: Distal abdominal aorta is patent and measures 1.6 cm. Commoniliac arteries are patent and measure 1.3 cm [...] Alyx Valentine MDReport Verified Date/Time: 04/28/2020 12:18:58 POCT-GLUCOSE [id number] 07:43:00 Test Item Value Reference Range Interpretation Comments POC-GLUCOSE METER 85 mg/dL 70-110 : TESTED A T [facility] 6720 ([facility]) (test code = [facility], 153) [address]: Academic Advisor/Techni demetrice ID = [id number] for Adams Villeda POCT-GLUCOSE [id number] 22:13:00 Test Item Value Reference Range Interpretation Comments POC-GLUCOSE METER 79 mg/dL 70-110 : Notified RN/MD: TESTED ([facility]) (test code = AT [facility] [address] [place] [id number]) [facility], [address]: Academic Advisor/Techni demetrice ID = [id number] for KENNETH MORAES POCT-GLUCOSE [id number] 18:06:00 Test Item Value Reference Range Interpretation Comments POC-GLUCOSE METER 105 mg/dL 70-110 : TESTED A T [facility] 6720 ([facility]) (test code = [facility], 1538) [address]: Academic Advisor/Techni demetrice ID = [id number] for KWASI RGMIKAELA, IRIS [id number] 17:07:00 Test Item Value Reference Range Interpretation Comments ACTIVATED CLOTTING TIME 147 sec : 74 -137 seconds, ([facility]) (test code = Amari ne: TESTED AT [facility]) [facility] [address] [facility], [address]: Academic Advisor/Techni demetrice ID = [id number] for BA TTAD, SEMAJ POCT-GLUCOSE [id number] 17:05:00 Test Item Value Reference Range Interpretation Comments POC-GLUCOSE METER 127 mg/dL 70-110 H : TESTED A T [facility] 6720 (BEAKER) (test code [facility], = 1538) [address]: Academic Advisor/Techni demetrice ID = [id number] for SACHINR ROBERT DUPLECHIMIKAELA (V), DYLLAN HEMOGLOBIN AND [id number] 17:00:00 Test Item Value Reference Range Interpretation Comments HEMOGLOBIN (BEAKER) (test code = 8.3 GM/DL 13.7-17.5 L 410) HEMATOCRIT (AKER) (test code = 24.8 % 40.1-51.0 L 411) Academic Advisor ID - 6000POCT-GLUCOSE [id number] 15:34:00 Test Item Value Reference Range Interpretation Comments POC-GLUCOSE METER 132 mg/dL 70-110 H : TESTED A T [facility] 6720 ([facility]) (test code = [facility], 153) [address]: Academic Advisor/Techni demetrice ID = [id number] for BA TTAD, SEMAJ POCT-GLUCOSE [id number] 15:23:00 Test Item Value Reference Range Interpretation Comments POC-GLUCOSE METER 63 mg/dL 70-110 L : TESTED A T [facility] 6720 ([facility]) (test code = [facility], 153) [address]: Academic Advisor/Techni demetrice ID = [id number] for RYAN MORENO MARCUS [id number] 14:00:00 Test Item Value Reference Range Interpretation Comments ACTIVATED CLOTTING TIME 252 sec : 74 -137 seconds, (AKER) (test code = Baseli ne: TESTED AT 441) [facility] [facility], 770 30: Academic Advisor/Techni demetrice ID = [id number] for Ortiz SANCHEZ POCT-GLUCOSE [id number] 11:36:00 Test Item Value Reference Range Interpretation Comments POC-GLUCOSE METER 75 mg/dL 70-110 : TESTED A T [facility] 6720 ([facility]) (test code = [facility], 153) [address]: Academic Advisor/Techni demetrice ID = [id number] for LO GUERRERO POCT-GLUCOSE [id number] 10:10:00 Test Item Value Reference Range Interpretation Comments POC-GLUCOSE METER 79 mg/dL 70-110 : TESTED A T [facility] 6720 ([facility]) (test code = [facility], 1538) [address]: Academic Advisor/Techni demetrice ID = [id number] for JAMILA CAPPS TACROLIMUS [id number] 09:38:00 Test Item Value Reference Range Interpretation Comments TACROLIMUS BLOOD (BEAKER) (test 12.2 ng/mL 10.0-20.0 code = 657) Academic Advisor ID - SAMY MCKEEBASIC METABOLIC [id number] 06:45:00 Test Item Value Reference Range Interpretation [...] S NOT APPLICABLE FOR DIALYSIS PATIEN TS. Academic Advisor ID - EDASISpecimen slightly [id number] 06:43:00 Test Item Value Reference Range Interpretation Comments MAGNESIUM (BEAKER) (test code = 1.8 mg/dL 1.6-2.6 627) Academic Advisor ID - [id number] 06:43:00 Test Item Value Reference Range Interpretation Comments PHOSPHORUS (BEAKER) (test code = 4.2 mg/dL 2.3-4.7 604) Academic Advisor ID - EDASIHEPATIC FUNCTION [id number] 06:43:00 Test Item Value Reference Range Interpretation [...] (test code = 11 U/L 6-55 347) Academic Advisor ID - EDASISpecimen slightly ictericB-TYPE NATRIURETIC FACTOR (BNP) 2020-04-27 06:40:00 Test Item Value Reference Range Interpretation Comments B-TYPE NATRIURETIC PEPTIDE (BEAKER) 871 pg/mL 0-100 H (test code = 700) Academic Advisor ID - SERGIO LCBC W/PLT COUNT & AUTO [id number] 06:38:00 Test Item Value Reference Range Interpretation [...] PERCENT (BEAKER) (test code = 2801) PROTHROMBIN [id number] 06:26:00 Test Item Value Reference Range Interpretation [...] is 2.5-3.5 for patients wiht mechanical heart valves.POCT-GLUCOSE [id number] 19:59:00 Test Item Value Reference Range Interpretation Comments POC-GLUCOSE METER 108 mg/dL 70-110 : TESTED A T [facility] 6720 (BEAKER) (test code = [facility] [place], 9519) [address]: Academic Advisor/Techni demetrice ID = [id number] for Lesa Pritchett U/S, ABDOMINAL, [id number] 17:14:00Referring: Dr. Diane Eastman/ [place] Liver lesions, and Hepatic Vasculature with Doppler. Determine amount of ascites - to determine need for ParacentesisReason for exam:- >Evaluate Liver lesions, and Hepatic Vasculature with DopplerHx of Liver cystReason for exam:->Determine amount of ascites - to determine need for ParacentesisShould this be performed at the bedside?->Yes [facility] 1955 Sex: MFINAL REPORT [...] confluence are patent. TIPS stent is patent with intrastent velocities which range between 109-154 cm/s. BILIARY:Gallbladder: Stones in the gallbladder. Gallbladder wall is mildly thickened up to 0.4 cm, nonspecific finding in the setting of cirrhosis/ascites. No pericholecystic fluid or gallbladder distention. Reported negative sonographic Baltazar sign.Common bile du ct measures 0.3 cm, within normal limits. No intrahepatic biliary ductal dilatation. PANCREAS: Visualized portions of the pancreas are unremarkable. SPLEEN: Spleen is prominent and measures 16 cm. PERITONEUM: Small volume ascites in the right upper quadrant. KIDNEYS: Both kidneys are mildly echogenic.Right kidney measures 8.4 x 4.2 x 3.7 cm with cortical thickness of 1.1 cm. Left kidney measures 9.7x 5 x 4.5 cm with cortical thickness [...] MDReport Verified Date/Time: 04/26/2020 17:14:41 U/S, DUPLEX, [id number] 17:14:00Referring: Dr. Diane Eastman/ [place] for exam:->Eval liver lesions and hepatic vasculature wDopplers- Determine amt of ascites to determine for paracentesisShould this be performed at the [facility] : 1955 Sex: MFINAL [...] confluence are patent. TIPS stent is patent with intrastent velocities which range between 109-154 cm/s. BILIARY:Gallbladder: Stones in the gallbladder. Gallbladder wall is mildly thickened up to 0.4 cm, nonspecific finding in the setting of cirrhosis/ascites. No pericholecystic fluid or gallbladder distention. Reported negative sonographic Baltazar sign.Common bile du ct measures 0.3 cm, within normal limits. No intrahepatic biliary ductal dilatation. PANCREAS: Visualized portions of the pancreas are unremarkable. SPLEEN: Spleen is prominent and measures 16 cm. PERITONEUM: Small volume ascites in the right upper quadrant. KIDNEYS: Both kidneys are mildly echogenic.Right kidney measures 8.4 x 4.2 x 3.7 cm with cortical thickness of 1.1 cm. Left kidney measures 9.7x 5 x 4.5 cm with cortical thickness [...] MDReport Verified Date/Time: 04/26/2020 17:14:41 POCT- GLUCOSE [id number] 12:29:00 Test Item Value Reference Range Interpretation Comments POC-GLUCOSE METER 100 mg/dL 70-110 : TESTED A T [facility] 6720 (BEAKER) (test code = [facility] [place], 1538) [address]: Academic Advisor/Techni demetrice ID = [id number] for Adams Ordaz [id number] 10:27:00 Test Item Value Reference Range Interpretation Comments HAPTOGLOBIN (BEAKER) (test code = 15 mg/dL 14-258 366) Academic Advisor ID - ROSIANGCBC W/PLT COUNT & AUTO [id number] 10:04:00 Test Item Value Reference Range Interpretation [...] (test code = 413) VITAMIN B12 AND [id number] 10:02:00 Test Item Value Reference Range Interpretation Comments VITAMIN B12 (BEAKER) (test code = 1346 pg/mL 213-816 H 774) FOLATE (BEAKER) (test code = 362) 9.20 ng/mL >=7.00 Academic Advisor ID - RM(CELLAVISION MANUAL DIFF)2020-04-26 10:00:00 Test [...] CONCENTRATION Decreased (CELLAVISION)(BEAKER) (test code = 3438) Academic Advisor ID - [id number] ID - Sadiafelix SouthBj comments: Slide comments: RETICULOCYTE [id number] 08:41:00 Test Item Value Reference Range Interpretation Comments RETICULOCYTE COUNT PCT (BEAKER) (test 3.2 % 0.5-1.8 H code = 575) Academic Advisor ID - [id number] W/PLT COUNT & AUTO [id number] 08:35:00 Test Item Value Reference Range Interpretation [...] (BEAKER) (test code = hemoly zed 635) Academic Advisor ID - ROSIANGTACROLIMUS [id number] 08:33:00 Test Item Value Reference Range Interpretation Comments TACROLIMUS BLOOD (BEAKER) (test 5.6 ng/mL 10.0-20.0 L code = 657) Academic Advisor ID - JUNO WPOCT-GLUCOSE [id number] 07:58:00 Test Item Value Reference Range Interpretation Comments POC-GLUCOSE METER 87 mg/dL 70-110 : TESTED A T [facility] 6720 (BEAKER) (test code = [facility] [place], 1538) [address]: Academic Advisor/Techni demetrice ID = [id number] for Adams Villeda [id number] 06:19:00 Test Item Value Reference Range Interpretation Comments MAGNESIUM (BEAKER) 2.0 mg/dL 1.6-2.6 Specimen slightly (test code = 627) hemolyzed Academic Advisor ID - vosehJHDVVDBXFH3930-61-71 06:19:00 Test Item Value Reference Range Interpretation Comments PHOSPHORUS (BEAKER) 5.4 mg/dL 2.3-4.7 H Specimen slightly (test code = 604) hemolyzed Academic Advisor ID - edasiHEPATIC FUNCTION [id number] 06:19:00 Test Item Value Reference Range Interpretation [...] Specimen slightly (test code = 347) hemolyzed Academic Advisor ID - edasiBASIC METABOLIC [id number] 06:19:00 Test Item Value Reference Range Interpretation [...] S NOT APPLICABLE FOR DIALYSIS PATIEN TS. Academic Advisor ID - edasiB-TYPE NATRIURETIC FACTOR (BNP)2020-04-26 06:14:00 Test Item Value Reference Range Interpretation Comments B-TYPE NATRIURETIC PEPTIDE (BEAKER) 616 pg/mL 0-100 H (test code = 700) Academic Advisor ID - edasiPROTHROMBIN TIME/[id number] 05:58:00 Test Item Value Reference Range Interpretation [...] is 2.5-3.5 for patients wiht mechanical heart valves.POCT-GLUCOSE [id number] 22:18:00 Test Item Value Reference Range Interpretation Comments POC-GLUCOSE METER 90 mg/dL 70-110 : TESTED A T [facility] 6720 (BEAKER) (test code = [facility] [place], 1538) [address]: Academic Advisor/Techni demetrice ID = [id number] for Lesa Kay BLOOD GAS, [id number] 21:59:00 Test Item Value Reference Range Interpretation [...] FIO2 (BEAKER) (test code = 1819) 21.0 [id number] 21:00:00 Test Item Value Reference Range Interpretation Comments FERRITIN (BEAKER) (test code = 150.49 ng/mL 5.00-275.00 361) Academic Advisor ID - BSVITAMIN D, [id number] 20:47:00 Test Item Value Reference Range Interpretation Comments VITAMIN D 25-OH (BEAKER) (test code 8.1 ng/mL 6.6-49.9 = 2764) Effective 04/10/2017: Reference Range ChangeNew: 6.6-49.9 ng/mL Previous: 13.0- 47.8 ng/mLRecommendedVitamin D Target Range: 30.0-40.0 ng/mLOperator ID - DB IRON, TIBC, % SAT. (WITHOUT FERRITIN)2020-04-25 20:26:00 Test Item Value Reference Range Interpretation Comments IRON (BEAKER) (test code = 547) 54.0 ug/dL 40.0-160.0 TOTAL IRON BINDING CAPACITY 115 ug/dL 250-450 L (BEAKER) (test code = 769) IRON % SATURATION (2) (BEAKER) 47 % 20-55 (test code = 2590) Academic Advisor ID - DBPOCT-GLUCOSE [id number] 15:26:00 Test Item Value Reference Range Interpretation Comments POC-GLUCOSE METER 84 mg/dL 70-110 : TESTED A T [facility] 6720 (BEAKER) (test code = [facility], 1538) [address]: Academic Advisor/Techni demetrice ID = [id number] for ARNAUD KINSEY POCT-GLUCOSE [id number] 11:35:00 Test Item Value Reference Range Interpretation Comments POC-GLUCOSE METER 89 mg/dL 70-110 : TESTED A T [facility] 6720 (BEAKER) (test code = [facility], 1538) 82098: Academic Advisor/Techni demetrice ID = [id number] for COY VARGAS, RUTHANNLAE TACROLIMUS [id number] 10:55:00 Test Item Value Reference Range Interpretation Comments TACROLIMUS BLOOD (BEAKER) (test 9.5 ng/mL 10.0-20.0 L code = 657) Academic Advisor ID - MARCELLE FTACROLIMUS [id number] 10:55:00 Test Item Value Reference Range Interpretation Comments TACROLIMUS BLOOD (BEAKER) (test 11.4 ng/mL 10.0-20.0 code = 657) Academic Advisor ID - MARCELLE FPOCT-GLUCOSE [id number] 07:51:00 Test Item Value Reference Range Interpretation Comments POC-GLUCOSE METER 110 mg/dL 70-110 : TESTED A T [facility] 6720 (BEAKER) (test code = [facility], 1538) [address]: Academic Advisor/Techni demetrice ID = [id number] for HERACLIO NGUYEN, AGLAE [id number] 06:18:00 Test Item Value Reference Range Interpretation Comments FIBRINOGEN LEVEL (BEAKER) (test 282 mg/dl 225-434 code = 658) IMMUNOGLOBULIN A (IGA)2020-04-25 06:10:00 Test Item Value Reference Range Interpretation Comments IMMUNOGLOBULIN A (IGA) (BEAKER) (test < mg/dL 63-484 L code = 639) Academic Advisor ID - SERGIO LOpetor ELIZABETH HILL LIMMUNOGLOBULIN G (IGG)2020-04-25 06:10:00 Test Item Value Reference Range Interpretation Comments IMMUNOGLOBULIN G (IGG) (BEAKER) (test < mg/dL 540-1,822 L code = 427) Academic Advisor ID - SERGIO Gutierrez ID - SERGIO LIMMUNOGLOBULIN M (IGM)2020-04-25 06:10:00 Test Item Value Reference Range Interpretation Comments IMMUNOGLOBULIN M (IGM) (BEAKER) (test < mg/dL 22-293 L code = 638) Academic Advisor ID - SERGIO Gutierrez ID - SERGIO LLACTIC ACID, [id number] 06:09:00 Test Item Value Reference Range Interpretation Comments LACTATE BLOOD VENOUS (2) (BEAKER) 1.08 mmol/L 0.50-2.20 (test code = 2872) Academic Advisor ID - SERGIO LSpecimen slightly ictericB-TYPE NATRIURETIC FACTOR (BNP) 2020-04-25 04:54:00 Test Item Value Reference Range Interpretation Comments B-TYPE NATRIURETIC PEPTIDE (BEAKER) 699 pg/mL 0-100 H (test code = 700) Academic Advisor ID - SERGIO LBASIC METABOLIC [id number] 04:49:00 Test Item Value Reference Range Interpretation [...] S NOT APPLICABLE FOR DIALYSIS PATIEN TS. Academic Advisor ID - SERGIO LSpecimen slightly [id number] 04:45:00 Test Item Value Reference Range Interpretation Comments MAGNESIUM (BEAKER) (test code = 2.2 mg/dL 1.6-2.6 627) Academic Advisor ID - SERGIO [id number] 04:45:00 Test Item Value Reference Range Interpretation Comments PHOSPHORUS (BEAKER) (test code = 5.4 mg/dL 2.3-4.7 H 604) Academic Advisor ID [place] LHEPATIC FUNCTION [id number] 04:45:00 Test Item Value Reference Range Interpretation [...] (test code = 15 U/L 6-55 347) Academic Advisor ID - SERGIO LSpecimen slightly [id number] 04:45:00 Test Item Value Reference Range Interpretation Comments LIPASE (BEAKER) (test code = 749) 222 U/L 8-78 H Academic Advisor ID - SERGIO LSpecimen slightly ictericPROTHROMBIN [id number] 04:35:00 Test Item Value Reference Range Interpretation [...] is 2.5-3.5 for patients wiht mechanical heart valves.CBC W/PLT COUNT & AUTO [id number] 04:29:00 Test Item Value Reference Range Interpretation [...] PERCENT (BEAKER) (test code = 2801) SARS-COV2/RT-PCR ([facility])2020-04-25 04:12:00 Test Item Value Reference Range Interpretation Comments SARS-COV2/RT-PCR (test code Negative Not Detected, Negative, = 6120775) See external report for linked test SARS-COV-2 PERFORMING LAB [facility] (test code = 9678913) Negative results do not preclude SARS-CoV-2 infection [...] of the Act.Fact Sheet for Healthcare Pro viders:https://www.[employer].Composeright/Documents/Xpert%20Xpress%20SARS%20CoV-2/Fact%20Sh eets/061-9692%43WVOE-ONQ-1%20HEALTHCARE%20PROVIDERS%20FACT%20SHEET.pdfFact Sheet for Healthcare Patients:https://www.[employer].Composeright/Documents/Xpert%20Xpress%20SARS%20CoV-2/Fact%20Sheets/3023801%20SARS-COV -2%20PATIENT%20FACT%20SHEET.pdfPerforming Laboratory:[place] [address] [address] [place], [place] [address]TZV, ABDOMEN/KUB, 1 VIEW [id number] 01:28:00Referring: Dr. Diane Eastman/ [place] for exam:->abdominal [facility] 1955 Sex: MFINAL REPORT CLINICAL HISTORY: Abdominal pain COMPARISON: 04/22/2019 FINDINGS: Two supine views of the abdomen are submitted. The abdominal bowel gas pattern is nonspecific but grossly unobstructed. There is no focus of gas dilated large or small bowel. Centralization of the mid small bowel loops suggests underlying ascites. A TIPS shunt overlies the right upper quadrant. There is no acute bony abnormality. Please note that a supine examination is insensitive in the detection offree intraperitoneal air. Signed: Karissa Romero MDReport Verified Date/Time: 04/25/2020 01:28:39 U/S, RENAL, [id number] 01:26:00 Referring: Dr. Diane Eastman/ Alexandra include bladder as wellReason for exam:->NOHEMI on CKD [facility] : 1955 Sex: MFINAL REPORT Renal ultrasound [...] Romero MDReport Verified Date/Time: 04/25/2020 01:26:38 POCT-GLUCOSE [id number] 00:44:00 Test Item Value Reference Range Interpretation Comments POC-GLUCOSE METER 177 mg/dL 70-110 H : TESTED A T [facility] 6720 (ONStorAKER) (test code = [facility], 1538) [address]: Academic Advisor/Techni demetrice ID = [id number] for CE BALLOS, TAN POCT-GLUCOSE [id number] 23:52:00 Test Item Value Reference Range Interpretation Comments POC-GLUCOSE METER 99 mg/dL 70-110 : TESTED A T [facility] 6720 (BEAKER) (test code = [facility], 1538) [address]: Academic Advisor/Techni demetrice ID = [id number] for CEBA LLOS, TAN PROTEIN, RANDOM [id number] 22:02:00 Test Item Value Reference Range Interpretation Comments PROTEIN, URINE (AKER) (test code = < mg/dL 0-14 1569) Academic Advisor ID - DBUREA NITROGEN, RANDOM [id number] 22:01:00 Test Item Value Reference Range Interpretation Comments UREA NITROGEN URINE (BEAKER) (test 367 mg/dL code = 538) Reference Range: No NormalsOperator ID - DBCHLORIDE, RANDOM [id number] 22:01:00 Test Item Value Reference Range Interpretation Comments CHLORIDE URINE (BEAKER) (test code = 67 meq/L 682) Reference Range: No NormalsOperator ID - DBCREATININE, RANDOM [id number] 22:01:00 Test Item Value Reference Range Interpretation Comments CREATININE URINE (BEAKER) (test 85.6 mg/dL code = 375) Reference Range: No NormalsOperator ID - DBPOTASSIUM, RANDOM [id number] 22:01:00 Test Item Value Reference Range Interpretation Comments POTASSIUM URINE (BEAKER) (test 21.7 meq/L code = 195) Reference Range: No NormalsOperator ID - DBSODIUM, RANDOM [id number] 22:01:00 Test Item Value Reference Range Interpretation [...] /LPF 514) SOURCE(BEAKER) (test code = 2795) Academic Advisor ID - [auto]Academic Advisor ID - techLACTIC ACID, [id number] 21:32:00 Test Item Value Reference Range Interpretation Comments LACTATE BLOOD VENOUS (2) (BEAKER) 1.05 mmol/L 0.50-2.20 (test code = 2872) Academic Advisor ID - DBSpecimen slightly ictericT4, [id number] 20:07:00 Test Item Value Reference Range Interpretation Comments FREE T4 (BEAKER) (test code = 655) 0.55 ng/dL 0.70-1.48 L Academic Advisor ID - [id number] 20:02:00 Test Item Value Reference Range Interpretation Comments PROCALCITONIN (BEAKER) (test code 5.20 ng/mL <0.05 H = 3036) SEPSIS RISK (ng/mL)Low: 0.05-0.50Intermediate: 0.51-2.00High: >=2.01TROPONIN [id number] 19:34:00 Test Item Value Reference Range Interpretation [...] failure, acidosis, acute neurological disease, and persistent tachyarrhythmia.Academic Advisor ID - DBTSH/FREE T4 IF INDICATED 2020-04-24 19:33:00 Test Item Value Reference Range Interpretation Comments THYROID STIMULATING HORMONE 5.602 uIU/mL 0.350-4.940 H (BEAKER) (test code = 772) Academic Advisor ID - DBRAD, CHEST, 2 [id number] 19:10:00Referring: Dr. Diane Eastman/ [place] for exam:->FATIGUE [facility] : 1955 Sex: MFINAL REPORT RAD, CHEST, 2 VIEWS CLINICAL HISTORY: FATIGUE TECHNIQUE: 2 views of the chest COMPARISON: April 06, 2020 IMPRESSION: Development of interstitial opacities with peripheral Josr B lines suggesting mild pulmonary edema but pneumonitis should be excluded clinically. Blunted costophrenic angles may represent trace effusions, pleural thickening or atelectasis. No pneumot horax. No focal lung consolidation. Cardiomediastinal silhouette is stable. Stable osseous structures. Signed: Jed Guadarrama MDReport Verified Date/Time: 04/24/2020 19:10:21 B-TYPE NATRIURETIC FACTOR (BNP)2020-04-24 19:09:00 Test Item Value Reference Range Interpretation Comments B-TYPE NATRIURETIC PEPTIDE (BEAKER) 619 pg/mL 0-100 H (test code = 700) Academic Advisor ID - DBCOMPREHENSIVE METABOLIC [id number] 18:53:00 Test Item Value Reference Range Interpretation [...] S NOT APPLICABLE FOR DIALYSIS PATIEN TS. Academic Advisor ID - DBSpecimen slightly [id number] 18:49:00 Test Item Value Reference Range Interpretation Comments PARTIAL THROMBOPLASTIN TIME 40.9 seconds 22.5-36.0 H (BEAKER) (test code = 760) PROTHROMBIN [id number] 18:48:00 Test Item Value Reference Range Interpretation [...] is 2.5-3.5 for patients wiht mechanical heart valves.LACTIC ACID, [id number] 18:47:00 Test Item Value Reference Range Interpretation Comments LACTATE BLOOD VENOUS (2) (BEAKER) 1.10 mmol/L 0.50-2.20 (test code = 2872) Academic Advisor ID - DBSpecimen slightly ictericBLOOD GAS, [id number] 18:42:00 Test Item Value Reference Range Interpretation [...] 1819) 21.0 CBC W/PLT COUNT & AUTO [id number] 18:39:00 Test Item Value Reference Range Interpretation [...] code = 2801) MYOCARD IMAGING, MULTI, PHARM, [id number] 15:55:00Referring: Dr. Diane Eastman/ Josee Reason for Exam - Click Yes and Enter Reason Below->Ye sUnlisted Reason for Exam->liver [facility] : 1955 Sex: MFINAL REPORT PROCEDURE: Rest/Stress MYOCARDIAL PERFUSION SPECT with regadenoson\\XA9\\ CPT CODE: 10002 INDICATION: Preoperative evaluation for liver transplant PROTOCOL: [...] of MPHR) at tracer injection. BP was 1 17/57 mmHg at rest and 114/53 mmHg at [...] normal LV activity. LV and RV volumes appearnormal. Gated images obtained at rest after stress show normal LV wall motion and thickening. QGS LVEF is 55%. IMPRESSION: 1. Normal study. 2. Appropriate pharmacologic stress. 3. Normal myocardial perf usion. 4. Normal resting LV function. 5. Normal extracardiac tracer distribution. 6. No prior study.Signed: Geoff Edwards MDReport Verified Date/Time: 04/19/2020 15:55:39 Reading Location: [address] Reading Room MISCELLANEOUS LAB [id number] 12:14:00 Test Item Value Reference Range Interpretation Comments SCAN RESULT (test code = 9375717) T SPOT [id number] 13:21:00 Test Item Value Reference Range Interpretation Comments T-SPOT TB (BEAKER) (test code = Negative 1682) NEG CONTROL SPOT COUNT (BEAKER) 0 (test code = 1684) PANEL A SPOT (BEAKER) (test code = 1 1685) PANEL B SPOT (BEAKER) (test code = 1 1686) POS CONTROL SPOT CT (BEAKER) (test 0 code = 1687) SCAN RESULT (test code = 6869591) [id number] 12:43:00 Test Item Value Reference Range Interpretation Comments T3 TOTAL (BEAKER) (test code = 656) 36 ng/dL 48-159 L VARICELLA ZOSTER ANTIBODY, [id number] 09:11:00 Test Item Value Reference Range Interpretation Comments VARICELLA ZOSTER IGG (AL) (BEAKER) 0.9 (test code = 3197) VARICELLA ZOSTER RESULT INTERPRETATIONS: <=0.8 Al Nonreactive: Presumed non- immune to VZV 0.9-1.0Al Equivocal >=1.1 Al Reactive: Presumed immune to VZV CYTOMEGALOVIRUS ANTIBODY, [id number] 08:17:00 Test Item Value Reference Range Interpretation Comments CYTOMEGALOVIRUS IGM ANTIBODY Negative Negative, Equivocal (BEAKER) (test code = 3437) CMV IgM Result Interpretation: </= 0.8 Al Negative 0.9-1.0 Al Equivocal >/= 1.1 Al PositiveEBV ANTIBODY, [id number] 08:17:00 Test Item Value Reference Range Interpretation [...] Equivocal >= 10.0 IU/mL Positive - Presumed immuneRAD, MANDIBLE, MIN 4 [id number] 13:44:00Referring: Dr. Diane Eastman/ [place] for Exam:->liver transplant evaluationFINAL REPORT [...] Javed Paez MDReport Verified Date/Time: 04/06/2020 13:44:20 , CHEST, 2 [id number] 13:27:00Referring: Dr. Diane Eastman/ [place] for Exam:->liver transplant evaluationFINAL REPORT CHEST PA AND LATERAL COMPARISON STUDY: 02/23/2020 History provided:Liver transplantation evaluation Heart size normal. Prior sternotomy. Chronic blunting of the right costophrenic angle probably due to pleural thickening. Lungs clear and vascularity normal. Signed: Moreno Wilkes Verified Date/Time: 04/06/2020 13:27:52 Reading Location: [facility] Radiology ReadingRoom RAD, BONE DENSITY STUDY 2020-04-06 12:40:00Referring: Dr. Diane Eastman/ [place] for Exam:->liver transplant evaluationFINAL REPORT Bone mineral density study. CLINICAL INDICATION: Liver transplant evaluation. COMPARISON: 06/05/2018. FINDINGS: Bone densitometry of the femoral necks and lumbar spine was performed. The left femoral neck bone mineral density is 0.482 gm/cm2, the T-score is - 4.5, and the Z-score is -2.9. Left femoral neck bone mineral density is decreased 29.8% from the prior examination from 06/05/2018. The right femoral neck total bone mineral density is 0.495 gm/cm2, the T-score is-4.4, and the Z- score is -2.8. Right femoral neck bone mineral density is decreased 23.7% from the prior examination from 06/05/2018. The lumbar spine total bone mineral density is 0.744 gm/cm2, the T-score is -4.0, and the Z-score is -2.6. Lumbar spine bone mineral density is decreased 15.2% from the prior examination from 06/05/2018. IMPRESSION: 1. WHO classification of osteoporosis for the left femor al neck with a high risk of fracture. 2. WHO classification of osteoporosis for the right femoral neck with a high risk of fracture. 3. WHO classification of osteoporosis for the lumbar spine with a high risk of fracture. Signed: Javed Paez MDReport Verified Date/Time: 04/06/2020 12:40:47 CRYPTOCOCCAL [id number] 11:19:00 Test Item Value Reference Range Interpretation Comments CRYPTOCOCCAL ANTIGEN, SERUM Negative Negative, Interference (BEAKER) (test code = 1828) [id number] 11:16:00 Test Item Value Reference Range Interpretation Comments RPR SCREEN (BEAKER) (test code = Nonreactive Nonreactive 420) [id number] 10:35:00 Test Item Value Reference Range Interpretation Comments T4 TOTAL (BEAKER) (test code = 895) 3.8 ug/dL 4.9-11.7 L Academic Advisor ID - GENARO CHEPATITIS A ANTIBODY, [id number] 09:39:00 Test Item Value Reference Range Interpretation Comments HEPATITIS A IGG ANTIBODY (BEAKER) Reactive Nonreactive A (test code = 2797) Academic Advisor ID - GENARO [id number] 09:39:00 Test Item Value Reference Range Interpretation Comments PROSTATE SPECIFIC ANTIGEN (BEAKER) 0.0 ng/mL 0.0-4.0 (test code = 844) Academic Advisor ID - GENARO [id number] 09:39:00 Test Item Value Reference Range Interpretation Comments THYROID STIMULATING HORMONE 4.994 uIU/mL 0.350-4.940 H (BEAKER) (test code = 772) Academic Advisor ID - GENARO CCARCINOEMBRYONIC ANTIGEN (CEA)2020-04-06 09:26:00 Test Item Value Reference Range Interpretation Comments CARCINOEMBRYONIC ANTIGEN (BEAKER) 3.6 ng/mL 0.0-5.0 (test code = 685) Academic Advisor ID - GENARO CHEPATITIS B CORE ANTIBODY, [id number] 09:26:00 Test Item Value Reference Range Interpretation Comments HEPATITIS B CORE IGM ANTIBODY Nonreactive Nonreactive (BEAKER) (test code = 645) Academic Advisor ID - GENARO CHEPATITIS A ANTIBODY, [id number] 09:26:00 Test Item Value Reference Range Interpretation Comments HEPATITIS A IGM ANTIBODY (BEAKER) Nonreactive Nonreactive (test code = 498) Academic Advisor ID - GENARO FISHTIS B CORE ANTIBODY, [id number] 09:26:00 Test Item Value Reference Range Interpretation Comments HEPATITIS B CORE TOTAL ANTIBODY Nonreactive Nonreactive (BEAKER) (test code = 497) Academic Advisor ID - GENARO CHEPATITIS B SURFACE [id number] 09:23:00 Test Item Value Reference Range Interpretation Comments HEPATITIS B SURFACE ANTIGEN (2) Nonreactive Nonreactive (BEAKER) (test code = 2585) Specimen is considered negative for HBsAg.HEPATITIS B SURFACE [id number] 09:23:00 Test Item Value Reference Range Interpretation Comments HEPATITIS B SURFACE ANTIBODY 60.7 mIU/mL <8.0 H (BEAKER) (test code = 647) Academic Advisor ID - GENARO BAIRD C [id number] 09:23:00 Test Item Value Reference Range Interpretation Comments HEPATITIS C ANTIBODY (BEAKER) Nonreactive Nonreactive (test code = 367) Academic Advisor ID - GENARO CHIV-1 ANTIGEN WITH HIV-1/2 [id number] 09:23:00 Test Item Value Reference Range Interpretation Comments HIV-1 ANTIGEN WITH HIV 1\\T\\2 Nonreactive Nonreactive ANTIBODY (2) (BEAKER) (test code = 2586) Academic Advisor ID - GENARO CVITAMIN D, [id number] 09:20:00 Test Item Value Reference Range Interpretation Comments VITAMIN D 25-OH (BEAKER) (test 12.7 ng/mL 6.6-49.9 code = 2764) Effective 04/10/2017: Reference Range ChangeNew: 6.6-49.9 ng/mL Previous: 13.0- 47.8 ng/mLRecommendedVitamin D Target Range: 30.0-40.0 ng/mLOperator ID - GENARO C COMPREHENSIVE METABOLIC [id number] 09:05:00 Test Item Value Reference Range Interpretation [...] S NOT APPLICABLE FOR DIALYSIS PATIEN TS. Academic Advisor ID - GENARO [id number] 09:01:00 Test Item Value Reference Range Interpretation Comments TRANSFERRIN (BEAKER) (test code = 134 mg/dL 174-382 L 541) Academic Advisor ID - GENARO CURIC [id number] 08:57:00 Test Item Value Reference Range Interpretation Comments URIC ACID (BEAKER) (test code = 15.2 mg/dL 2.6-7.2 H 773) Academic Advisor ID - GENARO [id number] 08:57:00 Test Item Value Reference Range Interpretation Comments MAGNESIUM (BEAKER) (test code = 2.4 mg/dL 1.6-2.6 627) Academic Advisor ID - GENARO [id number] 08:57:00 Test Item Value Reference Range Interpretation Comments PHOSPHORUS (BEAKER) (test code = 3.0 mg/dL 2.3-4.7 604) Academic Advisor ID - GENARO CLIPID [id number] 08:57:00 Test Item Value Reference Range Interpretation Comments TRIGLYCERIDES (BEAKER) (test code = 56 mg/dL 540) CHOLESTEROL (BEAKER) (test code = 100 mg/dL 631) HDL CHOLESTEROL (BEAKER) (test code 34 mg/dL = 976) LDL CHOLESTEROL CALCULATED (BEAKER) 55 mg/dL (test code = 633) Triglyceride Reference Range: Low Risk <150 Borderline 150-199 High Risk 200- 499 Very High Risk >=500Cholesterol Reference Range: Low Risk <200 Borderline 200-239 High Risk >240HDL Cholesterol Reference Range: Low Risk >=60 High Risk <40LDL Cholesterol Reference Range: Optimal <100 Near Optimal 100-129 Borderline 130-159 High 160-189 Very High >=190 Academic Advisor ID - GENARO CBILIRUBIN, [id number] 08:57:00 Test Item Value Reference Range Interpretation Comments BILIRUBIN DIRECT (BEAKER) (test 0.9 mg/dL 0.1-0.5 H code = 706) Academic Advisor ID - GENARO CGAMMA GLUTAMYL TRANSFERASE (GGT)2020-04-06 08:57:00 Test Item Value Reference Range Interpretation Comments GAMMA GLUTAMYL TRANSFERASE (BEAKER) 46 U/L 9-64 (test code = 364) Academic Advisor ID - GENARO [id number] 08:57:00 Test Item Value Reference Range Interpretation Comments ETHANOL (BEAKER) (test code = 400) < mg/dL <=10 Academic Advisor ID - GENARO CCBC W/PLT COUNT & AUTO [id number] 08:56:00 Test Item Value Reference Range Interpretation [...] (BEAKER) (test code = 2801) URINALYSIS W/ [id number] 08:49:00 Test Item Value Reference Range Interpretation [...] /LPF 514) SOURCE(BEAKER) (test code = 2795) Academic Advisor ID - [auto]Academic Advisor ID - [id number] 08:48:00 Test Item Value Reference Range Interpretation Comments PARTIAL THROMBOPLASTIN TIME 33.4 seconds 22.5-36.0 (BEAKER) (test code = 760) [id number] 08:48:00 Test Item Value Reference Range Interpretation Comments FIBRINOGEN LEVEL (BEAKER) (test 163 mg/dl 225-434 L code = 658) PROTHROMBIN [id number] 08:47:00 Test Item Value Reference Range Interpretation [...] is 2.5-3.5 for patients wiht mechanical heart valves.CALCIUM, [id number] 08:32:00 Test Item Value Reference Range Interpretation Comments CALCIUM IONIZED (BEAKER) (test 1.15 mmol/L 1.12-1.27 code = 698) PH, BLOOD (BEAKER) (test code = 7.33 1810) TACROLIMUS [id number] 08:39:00 Test Item Value Reference Range Interpretation Comments TACROLIMUS BLOOD (BEAKER) (test 8.3 ng/mL 10.0-20.0 L code = 657) Academic Advisor ID - RMALPHA FETOPROTEIN (AFP), TUMOR [id number] 19:02:00 Test Item Value Reference Range Interpretation Comments ALPHA-FETOPROTEIN (BEAKER) (test 3.0 ng/mL <10.0 code = 1094) Academic Advisor ID - BSBASIC METABOLIC [id number] 17:37:00 Test Item Value Reference Range Interpretation [...] S NOT APPLICABLE FOR DIALYSIS PATIEN TS. Academic Advisor ID - BSSpecimen slightly ictericHEPATIC FUNCTION [id number] 17:32:00 Test Item Value Reference Range Interpretation [...] (test code = 25 U/L 6-55 347) Academic Advisor ID - BSSpecimen slightly ictericCBC W/PLT COUNT [...] PERCENT (BEAKER) (test code = 2801) PROTHROMBIN [id number] 15:49:00 Test Item Value Reference Range Interpretation [...] is 2.5-3.5 for patients wiht mechanical heart valves.CMV PCR, [id number] 19:30:00 Test Item Value Reference Range Interpretation Comments CMV VIRAL LOAD - POSITIVE Se e Scanned Report. (BEAKER) (test code = 1557) CMV VIRAL LOAD - NEGATIVE Se e Scanned Report. (BEAKER) (test code = 2558) BASIC METABOLIC [id number] 14:13:00 Test Item Value Reference Range Interpretation [...] S NOT APPLICABLE FOR DIALYSIS PATIEN TS. Academic Advisor ID - GENARO CTACROLIMUS [id number] 10:37:00 Test Item Value Reference Range Interpretation Comments TACROLIMUS BLOOD (BEAKER) (test 8.3 ng/mL 10.0-20.0 L code = 657) Academic Advisor ID - AAHAMIDBASIC METABOLIC [id number] 07:48:00 Test Item Value Reference Range Interpretation [...] S NOT APPLICABLE FOR DIALYSIS PATIEN TS. Academic Advisor ID - GENARO [id number] 07:35:00 Test Item Value Reference Range Interpretation Comments MAGNESIUM (BEAKER) (test code = 1.9 mg/dL 1.6-2.6 627) Academic Advisor ID - GENARO CBASIC METABOLIC [id number] 14:54:00 Test Item Value Reference Range Interpretation [...] S NOT APPLICABLE FOR DIALYSIS PATIEN TS. Academic Advisor ID - RENETTAACROLIMUS [id number] 09:59:00 Test Item Value Reference Range Interpretation Comments TACROLIMUS BLOOD (BEAKER) (test 11.6 ng/mL 10.0-20.0 code = 657) Academic Advisor ID - SAMY KOCHITAMIN D, [id number] 08:26:00 Test Item Value Reference Range Interpretation Comments VITAMIN D 25-OH (BEAKER) (test code 8.5 ng/mL 6.6-49.9 = 2764) Effective 04/10/2017: Reference Range ChangeNew: 6.6-49.9 ng/mL Previous: 13.0- 47.8 ng/mLRecommendedVitamin D Target Range: 30.0-40.0 ng/mLOperator ID - NTP HEPATIC FUNCTION [id number] 08:00:00 Test Item Value Reference Range Interpretation [...] (test code = 40 U/L 6-55 347) Academic Advisor ID - NTPCBC (HEMOGRAM ONLY)2020-02-25 07:01:00 Test [...] 0-0 (test code = 413) BASIC METABOLIC [id number] 07:01:00 Test Item Value Reference Range Interpretation [...] S NOT APPLICABLE FOR DIALYSIS PATIEN TS. Academic Advisor ID - [id number] 06:49:00 Test Item Value Reference Range Interpretation Comments MAGNESIUM (BEAKER) (test code = 2.0 mg/dL 1.6-2.6 627) Academic Advisor ID - NTPPTH, [id number] 06:44:00 Test Item Value Reference Range Interpretation Comments PARATHYROID HORMONE INTACT 425.2 pg/mL 8.5-72.5 H (BEAKER) (test code = 577) Academic Advisor ID - NTPU/S, ABDOMINAL, WITH [id number] 23:24:00Referring: Dr. Diane Eastman/ [place] for exam:->HCC screening in cirrhotic patient and TIPS evaluation (rule out thrombosis)FINAL REPORT Exam: U/S, ABDOMINAL, WITH DOPPLER Clinical History: HCC screeningin cirrhotic patient and TIPS evaluation (rule out thrombosis) Discussion: Sonographic evaluation of the abdomen was performed with Doppler. Comparison is made to right upper quadrant ultrasound with Doppler 08/25/2019 Liver: 9.7 cm in length at the right midclavicular line. Cirrhotic morphology. 9 x 8x 8 mm cyst in the right hepatic [...] velocity gradient to suggest thrombosis or stenosis. Thepeak systolic velocities in the proximal, mid and [...] with normal waveforms. Impression:Cirrhosis and evidence of por jil hypertension. Small liver cyst. Please note that liver protocol CT or MRI is more sensitive for the evaluation of HCC. Patent TIPS. No evidence of thrombosis. Elevated resistive indices in the right and left hepatic arteries. Cholelithiasis without sonographic evidence of acute cholecystitis. Small abdominal ascites. Signed: David Yee MDReport Verified Date/Time: 02/24/2020 23:24:17 CHLORIDE, RANDOM [id number] 18:44:00 Test Item Value Reference Range Interpretation Comments CHLORIDE URINE (BEAKER) (test code 130 meq/L = 682) Reference Range: No NormalsOperator ID - BSCREATININE, RANDOM [id number] 18:44:00 Test Item Value Reference Range Interpretation Comments CREATININE URINE (BEAKER) (test 27.5 mg/dL code = 375) Reference Range: No NormalsOperator ID - BSPOTASSIUM, RANDOM [id number] 18:44:00 Test Item Value Reference Range Interpretation Comments POTASSIUM URINE (BEAKER) (test 26.2 meq/L code = 195) Reference Range: No NormalsOperator ID - BSSODIUM, RANDOM [id number] 18:44:00 Test Item Value Reference Range Interpretation Comments SODIUM URINE (BEAKER) (test code = 102 meq/L 243) Reference Range: No NormalsOperator ID - BSUREA NITROGEN, RANDOM [id number] 18:44:00 Test Item Value Reference Range Interpretation Comments UREA NITROGEN URINE (BEAKER) (test 122 mg/dL code = 538) Reference Range: No NormalsOperator ID - BSBLOOD GAS, [id number] 18:33:00 Test Item Value Reference Range Interpretation [...] code = 1819) 21.0 % BASIC METABOLIC [id number] 13:33:00 Test Item Value Reference Range Interpretation [...] S NOT APPLICABLE FOR DIALYSIS PATIEN TS. Academic Advisor ID - JUL CTACROLIMUS [id number] 11:30:00 Test Item Value Reference Range Interpretation Comments TACROLIMUS BLOOD (BEAKER) (test 13.2 ng/mL 10.0-20.0 code = 657) Academic Advisor ID - SAMY MUÑOZEBASIC METABOLIC [id number] 07:00:00 Test Item Value Reference Range Interpretation [...] S NOT APPLICABLE FOR DIALYSIS PATIEN TS. Academic Advisor ID - EDASIPROTHROMBIN TIME/[id number] 06:41:00 Test Item Value Reference Range Interpretation [...] is 2.5-3.5 for patients wiht mechanical heart valves.U/S, RENAL, [id number] 01:22:00Referring: Dr. Diane Eastman/ [place] for exam:->NOHEMI on [id number] REPORT TECHNIQUE: Grayscale ultrasound of the kidneys and bladder with Doppler and spectral analysis. INDICATION: NOHEMI on CKD3. COMPARISON: 04/22/2019. FINDINGS: RIGHT KIDNEY:The right kidney is 8.7 x 3.9 x [...] MDReport Verified Date/Time: 02/24/2020 01:22:47 CREATININE, RANDOM URINE 2020-02-23 21:28:00 Test Item Value Reference Range Interpretation Comments CREATININE URINE (BEAKER) (test 82.9 mg/dL code = 375) Reference Range: No NormalsOperator ID - BSPROTEIN, RANDOM [id number] 21:28:00 Test Item Value Reference Range Interpretation Comments PROTEIN, URINE (BEAKER) (test code = 7 mg/dL 0-14 1569) Academic Advisor ID - BSSODIUM, RANDOM [id number] 21:28:00 Test Item Value Reference Range Interpretation Comments SODIUM URINE (BEAKER) (test code = 67 meq/L 243) Reference Range: No NormalsOperator ID - BSURINALYSIS W/ [id number] 21:12:00 Test Item Value Reference Range Interpretation [...] = 1521) SOURCE(BEAKER) (test code = 2795) Academic Advisor ID - [auto]Academic Advisor ID - [id number] 19:00:00 Test Item Value Reference Range Interpretation Comments FERRITIN (BEAKER) (test code = 71.41 ng/mL 5.00-275.00 361) Academic Advisor ID - BSVITAMIN B12 AND [id number] 19:00:00 Test Item Value Reference Range Interpretation Comments VITAMIN B12 (BEAKER) (test code = 633 pg/mL 213-816 774) FOLATE (BEAKER) (test code = 362) 16.00 ng/mL >=7.00 Academic Advisor ID - BSB-TYPE NATRIURETIC FACTOR (BNP)2020-02-23 18:31:00 Test Item Value Reference Range Interpretation Comments B-TYPE NATRIURETIC PEPTIDE 1388 pg/mL 0-100 H (BEAKER) (test code = 700) Academic Advisor ID - BSIRON, TIBC, % SAT. (WITHOUT FERRITIN)2020-02-23 18:24:00 Test Item Value Reference Range Interpretation Comments IRON (BEAKER) (test code = 547) 111.0 ug/dL 40.0-160.0 TOTAL IRON BINDING CAPACITY 214 ug/dL 250-450 L (BEAKER) (test code = 769) IRON % SATURATION (2) (BEAKER) 52 % 20-55 (test code = 2590) Academic Advisor ID - BSBASIC METABOLIC [id number] 18:24:00 Test Item Value Reference Range Interpretation [...] S NOT APPLICABLE FOR DIALYSIS PATIEN TS. Academic Advisor ID - BSSARS-COV2/RT-PCR ([facility])2020-02-23 15:02:00 Test Item Value Reference Range Interpretation Comments SARS-COV2/RT-PCR (test code Negative Not Detected, Negative, = 9161400) See external report for linked test SARS-COV-2 PERFORMING LAB [facility] (test code = 9188656) Negative results do not preclude SARS-CoV-2 infection [...] of the Act.Fact Sheet for Healthcare Pro viders:https://www.[employer]/Documents/Xpert%20Xpress%20SARS%20CoV-2/Fact%20Sh eets/302-3802%38NOYP-IBT-2%20HEALTHCARE%20PROVIDERS%20FACT%20SHEET.pdfFact Sheet for Healthcare Patients:https://www.[employer]/Documents/Xpert%20Xpress%20SARS%20CoV-2/Fact%20Sheets/302-3801%20SARS-COV -2%20PATIENT%20FACT%20SHEET.pdfPerforming Laboratory:[facility], [place] [address]KYLVKICENG [id number] 12:46:00 Test Item Value Reference Range Interpretation Comments TACROLIMUS BLOOD (BEAKER) (test 18.3 ng/mL 10.0-20.0 code = 657) Academic Advisor ID - RMRAD, CHEST, 2 [id number] 11:47:00Referring: Dr. Diane Eastman/ [place] for Exam:->s/p lung transplantFINAL REPORT INDICATION: s/p lung transplant COMPARISON: December 10, 2019 TECHNIQUE: Frontal and lateral views of the chest. FINDINGS: Lungs and pleura: Clear lungs. Small bilateral effusions.Heart and mediastinum: Normal heart size. Unremarkable mediastinal contours.Osseous structures: No acute abnormality.Additional findings: Status post lung transplant. IMPRESSION: No acute intrathoracic abnormality. Signed: Fitz Fernandez MDReport Verified Date/Time: 02/23/2020 11:47:27 Reading Location: [facility] Radiology Reading Room HEMOGLOBIN [id number] 11:44:00 Test Item Value Reference Range Interpretation Comments HEMOGLOBIN A1C (BEAKER) (test code = < % 4.3-6.1 L 368) COMPREHENSIVE METABOLIC [id number] 11:14:00 Test Item Value Reference Range Interpretation [...] S NOT APPLICABLE FOR DIALYSIS PATIEN TS. Academic Advisor ID - [id number] 11:08:00 Test Item Value Reference Range Interpretation Comments PHOSPHORUS (BEAKER) (test code = 5.4 mg/dL 2.3-4.7 H 604) Academic Advisor ID - [id number] 11:08:00 Test Item Value Reference Range Interpretation Comments MAGNESIUM (BEAKER) (test code = 2.3 mg/dL 1.6-2.6 627) Academic Advisor ID - NTPCBC W/PLT COUNT & AUTO [id number] 10:57:00 Test Item Value Reference Range Interpretation [...] PERCENT (BEAKER) (test code = 2801) BLOOD [id number] 22:00:00 Test Item Value Reference Range Interpretation Comments CULTURE (BEAKER) (test No growth in 5 days code = 1095) BLOOD [id number] 22:00:00 Test Item Value Reference Range Interpretation Comments CULTURE (BEAKER) (test No growth in 5 days code = 1095) LACTIC ACID, [id number] 00:13:00 Test Item Value Reference Range Interpretation Comments LACTATE BLOOD VENOUS (2) (BEAKER) 1.38 mmol/L 0.50-2.20 (test code = 2872) Academic Advisor ID - PIAYA LSARS-COV2/RT-PCR ([facility])2019-12-10 21:39:00 Test Item Value Reference Range Interpretation Comments SARS-COV2/RT-PCR (test Not Detected Not Detected, Negative code = 5775143) SARS-COV-2 PERFORMING LAB [facility] (test code = 9602090) Negative results do not preclude SARS-CoV-2 infection [...] of the Act.Fact Sheet for Healthcare Pro viders:https://www.[employer].com/Documents/Xpert%20Xpress%20SARS%20CoV-2/Fact%20Sh eets/3023802%50HAVY-CBX-6%20HEALTHCARE%20PROVIDERS%20FACT%20SHEET.pdfFact Sheet for Healthcare Patients:https://www.[employer]/Documents/Xpert%20Xpress%20SARS%20CoV-2/Fact%20Sheets/302-6134%20SARS-COV -2%20PATIENT%20FACT%20SHEET.pdfPerforming Laboratory:[facility] [place], [place] [address]JEHIFKXC [id number] 20:47:00 Test Item Value Reference Range Interpretation [...] failure, acidosis, acute neurological disease, and persistent tachyarrhythmia.Academic Advisor ID - BSB-TYPE NATRIURETIC FACTOR (BNP)2019-12-10 20:45:00 Test Item Value Reference Range Interpretation Comments B-TYPE NATRIURETIC PEPTIDE 1761 pg/mL 0-100 H (ANYIAKER) (test code = 700) Academic Advisor ID - [id number] 20:44:00 Test Item Value Reference Range Interpretation Comments PARTIAL THROMBOPLASTIN TIME 36.0 seconds 22.5-36.0 (BEAKER) (test code = 760) PROTHROMBIN [id number] 20:43:00 Test Item Value Reference Range Interpretation [...] is 2.5-3.5 for patients wiht mechanical heart valves.HEPATIC FUNCTION [id number] 20:41:00 Test Item Value Reference Range Interpretation [...] (test code = 36 U/L 6-55 347) Academic Advisor ID - BSBASIC METABOLIC [id number] 20:41:00 Test Item Value Reference Range Interpretation [...] 697) EGFR (BEAKER) (test 33 mL/min/1.73 ESTIMA ABDLULAHI GFR IS code = 1092) sq m NOT ACCURATE CREATININE CLEARANCE IN PREDICTING GLOMERULAR FILTRATION RATE . ESTIMATED GFR I S NOT APPLICABLE FOR DIALYSIS PATIEN TS. Academic Advisor ID - BSLACTIC ACID, [id number] 20:35:00 Test Item Value Reference Range Interpretation Comments LACTATE BLOOD VENOUS (2) (BEAKER) 2.02 mmol/L 0.50-2.20 (test code = 9102) Academic Advisor ID - BSCBC W/PLT COUNT & AUTO [id number] 20:32:00 Test Item Value Reference Range Interpretation [...] = 2801) RAD, CHEST, 1 VIEW, NON [id number] 20:23:00Referring: Dr. Diane Fernando for exam:->SHORTNESS OF BREATHFINAL REPORT History: [...] MDReport Verified Date/Time: 12/10/2019 20:23:47 CMV PCR, [id number] 14:32:00 Test Item Value Reference Range Interpretation [...] management of antiviral therapy. For treatment of CMV infection due to reactivation in transplant recipients, a threshold between 4,000 and 5,000 copies/mLis suggested. For treatment of primary CMV infection, a lower threshold can be used.CMV infection may also be monitored using weekly serial measurements. Serial measurements of CMV DNA viral load can be evaluated by identifying a 10-fold change, as [...] and its performance characteristics determined by the [facility] Pathol ogy Department, Section of Molecular Pathology. It has not been cleared or approved by the U.S. Foodand Drug Administration (FDA), since FDA approval is not required for clinical use of the test. Validation was done as required by The Clinical Laboratory Improvement Amendments of 1988.TACROLIMUS LEVEL 2019-10-06 12:20:00 Test Item Value Reference Range Interpretation Comments TACROLIMUS BLOOD (BEAKER) (test 14.3 ng/mL 10.0-20.0 code = 657) [facility] by [facility] LaboratoryALPHA FETOPROTEIN (AFP), TUMOR [id number] 18:05:00 Test Item Value Reference Range Interpretation Comments ALPHA-FETOPROTEIN (BEAKER) (test 2.8 ng/mL <10.0 code = 1094) Academic Advisor ID - BSHEPATIC FUNCTION [id number] 15:21:00 Test Item Value Reference Range Interpretation [...] (test code = 42 U/L 6-55 347) Academic Advisor ID - BSBASIC METABOLIC [id number] 15:21:00 Test Item Value Reference Range Interpretation [...] S NOT APPLICABLE FOR DIALYSIS PATIEN TS. Academic Advisor ID - BSPROTHROMBIN TIME/[id number] 15:03:00 Test Item Value Reference Range Interpretation [...] is 2.5-3.5 for patients wiht mechanical heart valves.CBC W/PLT COUNT & AUTO [id number] 14:52:00 Test Item Value Reference Range Interpretation [...] PERCENT (BEAKER) (test code = 2801) TISSUE [id number] 10:25:00Surgical Pathology Report Case: [id number] Authorizing Provider: Aaron Green MD Collected: 08/31/2019 1120 Ordering Location: [facility] Radiology Angio Received: 08/31/2019 1257 Pathologist: Mandie Tyler MD Specimen: Biopsy, Liver LIVER, TRANSJUGULAR NEEDLE BIOPSIES- FIBROSIS STAGE 4 OF 4, CONSISTENT WITH CIRRHOSIS- see comment Signing Pathologist Direct Phone Line: [phone] signed by Mandie Tyler MD on 09/04/2019 at 10:25 AMThe liver biopsy shows foci of sinusoidal d ilatation and congestion with dilated venous radicals. These features could be secondary to portal hypertension or may suggest a chronic venous outflow obstruction. [address], [address] Q0Nswchvw with history of bilateral lung transplants in 2013, and now with ascites and portal hypertension. A. Liver biopsyThe case is received in one part labeled with the patient's information as [id number] which correspondsto the accompanying requisition slip. A. Received in formalin labeled with the patient's informationand "liver biopsy" are four fragments of salvador-red soft tissue needle cores measuring 1 x 0.3 x 0.3 cmin aggregate. They are submitted in toto after [...] venous radicals. Sinusoidal dilatation and congestion is present.Mild nonspecific lymphocyte predominant portal inflammation is present. There is ductular reaction with associated neutrophils. The bile ducts are preserved and appear unremarkable. No periductal inflammation, granulomas or bile duct scars are seen. Few glycogenated nuclei are present. No significant s teatosis, ballooning degeneration, Sheron Denk hyaline, lobular necroinflammation or cholestasis ispresent. Minimal small droplet steatosis involving less than 5% of liver parenchyma is present. No hyaline globules are seen on PASD stain. Iron stain is negative.Special stains: trichrome, reticulin, iron and PAS with diastaseThe interpretation of this case included the use of immunohistochemistry orspecial stains.Control Slides Examined: In-house known positive controls were evaluated along with the test tissue. These control slides run alongside of the patients sample show appropriate staining. Internal positive and negative controls when available are evaluated Immunohistochemistry technical testing was performed at [facility], Pathology Laboratory where it was developedand its performance characteristics were determined. It has not been cleared or approved by the U.S.Food and Drug Administration. The FDA has determined that such clearance or approval is not necessary. The test is used for clinical purposes. It should not be regarded as investigational or for research. This laboratory is certified under the Clinical Laboratory Improvement Amendments of 1988 (CLIA-88) as qualified to perform high complexity clinical laboratory testing.ZEFERINO [id number] 18:36:00 Referring: Dr. Diane Fernando for Exam:->refractory ascitesFINAL REPORT History: Portal hypertension, recurrent ascites. PROCEDURE: Following informed written consent, general endotracheal anesthesia was administered and the patient's right cervical region was prepped and draped in the usual sterile manner. Maximum sterile barrier techniques were utilized. Access was gained to the right internal jugular vein using ultrasound guidance mihir micropuncture needle. A 10 Bermudian sheath was placed at the access site. A 5 Bermudian multipurpose catheter and Smith wire were then [...] main portal vein. The tract was dilated usi ng a 5 mm balloon and a Berenstein catheter was advanced over the wire into the main portal vein. Portal venography was performed. An Amplatz wire was then placed through the portal venous access and into the superior mesenteric vein. A 45 cm 10 Bermudian sheath was advanced over the wire into [...] Following stent deployment and dilatation, the Viator stentis noted to lie in expected position between the right portal and right hepatic veins. Flow through the stent is brisk. Persistent hepatopedal flow is seen in the big sandy portal veins. No varices are identified. Post stent gradient pressures as follows: Main portal vein: 15 mmHgRight atrial pressure: 9mmHgTotal gradient: 6 mmHg IMPRESSION: 1. Successful uncomplicated transjugular liver biopsy and hepa tic venous pressures as described above. A total of three 19-gauge core tissue samples were obtainedfrom the liver and submitted in formalin to pathology for evaluation. 2. Technically successful uncomplicated TIPS stent deployment between the right hepatic and right portal veins with a post stent gradient of 6 mmHg between the main portal vein and right atrium. Total fluoroscopy time: 15.6 minutes.Estimated total patient dose reported as (Ka,r): 358 mGy Signed: Denilson Liao [facility] Verified Date/Time: 09/01/2019 18:36:48 Reading Location: [place] [address] Angio Body Reading Room BILIRUBIN, [id number] 07:58:00 Test Item Value Reference Range Interpretation Comments BILIRUBIN DIRECT (BEAKER) (test 0.6 mg/dL 0.1-0.5 H code = 706) Academic Advisor ID - SAMY MCOMPREHENSIVE METABOLIC [id number] 07:58:00 Test Item Value Reference Range Interpretation [...] S NOT APPLICABLE FOR DIALYSIS PATIEN TS. Academic Advisor ID - SAMY MPROTHROMBIN TIME/[id number] 07:53:00 Test Item Value Reference Range Interpretation [...] is 2.5-3.5 for patients wiht mechanical heart valves.[id number] 07:53:00 Test Item Value Reference Range Interpretation Comments PARTIAL THROMBOPLASTIN TIME 36.5 seconds 22.5-36.0 H (BEAKER) (test code = 760) CBC W/PLT COUNT & AUTO [id number] 07:45:00 Test Item Value Reference Range Interpretation [...] PERCENT (BEAKER) (test code = 2801) TACROLIMUS [id number] 11:25:00 Test Item Value Reference Range Interpretation Comments TACROLIMUS BLOOD (BEAKER) (test 5.7 ng/mL 10.0-20.0 L code = 657) Academic Advisor ID - MARCELLE FBASIC METABOLIC [id number] 07:04:00 Test Item Value Reference Range Interpretation [...] S NOT APPLICABLE FOR DIALYSIS PATIEN TS. Academic Advisor ID - [id number] 06:37:00 Test Item Value Reference Range Interpretation Comments PARTIAL THROMBOPLASTIN TIME 33.2 seconds 22.5-36.0 (BEAKER) (test code = 760) PROTHROMBIN [id number] 06:36:00 Test Item Value Reference Range Interpretation [...] is 2.5-3.5 for patients wiht mechanical heart valves.CBC W/PLT COUNT & AUTO [id number] 06:26:00 Test Item Value Reference Range Interpretation [...] = 2801) U/S, HEPATIC PORTAL VESSEL WITH [id number] 22:44:00Referring: Dr. Diane Fernando for exam:->Assess for portal vein thrombusFINAL REPORT TECHNIQUE: Grayscale ultrasound of the abdomen with color Doppler and spectral Doppler ultrasound of the portal/hepatic vasculature. INDICATION: Assess for portal veinthrombus. COMPARISON: Ultrasound from 04/22/2019. MRI from 05/13/2019. [...] related to the portal hypertension. Negative sonographic Baltazar sign.Common [...] MDReport Verified Date/Time: 08/25/2019 22:44:25 Reading Location: [facility] C013W Consult Reading Room CBC W/PLT COUNT & AUTO [id number] 10:38:00 Test Item Value Reference Range Interpretation [...] CONCENTRATION Decreased (CELLAVISION)(BEAKER) (test code = 3438) Academic Advisor ID - Ade Lucero comments: Slide comments:TACROLIMUS [id number] 09:27:00 Test Item Value Reference Range Interpretation Comments TACROLIMUS BLOOD (BEAKER) (test 7.6 ng/mL 10.0-20.0 L code = 657) Academic Advisor ID - MARCELLE FBASIC METABOLIC [id number] 08:01:00 Test Item Value Reference Range Interpretation [...] S NOT APPLICABLE FOR DIALYSIS PATIEN TS. Academic Advisor ID - SAMY MPROTHROMBIN TIME/[id number] 07:12:00 Test Item Value Reference Range Interpretation [...] is 2.5-3.5 for patients wiht mechanical heart valves.[id number] 07:12:00 Test Item Value Reference Range Interpretation Comments PARTIAL THROMBOPLASTIN TIME 33.9 seconds 22.5-36.0 (BEAKER) (test code = 760) CBC W/PLT COUNT & AUTO [id number] 11:28:00 Test Item Value Reference Range Interpretation [...] CONCENTRATION Decreased (CELLAVISION)(BEAKER) (test code = 3438) Academic Advisor ID - Elisabet OverholtUser comments: Slide comments:HEPATIC [...] (test code = 35 U/L 6-55 347) Academic Advisor ID - MARCELLE FBASIC METABOLIC [id number] 07:38:00 Test Item Value Reference Range Interpretation [...] S NOT APPLICABLE FOR DIALYSIS PATIEN TS. Academic Advisor ID - MARCELLE FGAMMA GLUTAMYL TRANSFERASE (GGT)2019-08-24 07:38:00 Test Item Value Reference Range Interpretation Comments GAMMA GLUTAMYL TRANSFERASE (BEAKER) 151 U/L 9-64 H (test code = 364) Academic Advisor ID - MARCELLE FU/S, ABDOMINAL, [id number] 15:29:00Referring: Dr. Diane Eastman Labs to be ordered:->Other (please add comment) cell count Labs to be ordered:->Body Fluid Culture (w/Gram Stain, C\\T\\S) Reason for exam:->ASCITES Reason for exam:->GROIN SWELLINGFINAL REPORT Limited abdominal ultrasound dated 08/23/2019 COMMENT: Limited ultra sound examination of the abdomen was performed. No ascites was seen in the abdomen. Planned ultrasound guided paracentesis was not performed. IMPRESSION: No ascites. Testicular ultrasound date 08/23/2019 Comment: Real-time ultrasound examination of the testis were obtained. Right testes measures 4.0 x 2.6 x 2.2 cm. Left testes measures 3.9 x 32.4 x 3 point cm. Both testis are homogeneous without focalmass. Doppler ultrasound demonstrates patent arterial and venous flow in both testis. Right epididymis measures 1.4 x 0.7 cm. Left epididymis measures 1.5 x 0.7 cm. There is bilateral hydrocele. Edema is seen involving the scrotum. Impression: Bilateral hydroceles and scrotal edema. Signed: Ken Harperort Verified Date/Time: 08/23/2019 15:29:24 Reading Location: [facility] C013X Ortho Consult Reading Room U/S, TESTICULAR, WITH [id number] 15:29:00Referring: Dr. Diane Fernando for exam:->ASCITESReason for exam:->GROIN SWELLING FINAL REPORT Limited abdominal ultrasound dated 08/23/2019 COMMENT: [...] point cm. Both testis are homogeneous without focalmass. Doppler ultrasound demonstrates patent arterial and venous flow in both testis. Right epididymis measures 1.4 x 0.7 cm. Left epididymis measures 1.5 x 0.7 cm. There is bilateral hydrocele. Edema i s seen involving the scrotum. Impression: Bilateral hydroceles and scrotal edema. Signed: Ken Harper Verified Date/Time: 08/23/2019 15:29:24 Reading Location: [place] [address]X Ortho Consult Reading Room [id number] 11:14:00 Test Item Value Reference Range Interpretation Comments LIPASE (BEAKER) (test code = 749) 37 U/L 8-78 Academic Advisor ID - MARCELLE [id number] 11:14:00 Test Item Value Reference Range Interpretation Comments AMYLASE (BEAKER) (test code = 349) 80 U/L 25-125 Academic Advisor ID [place] IBANEZ FBASIC METABOLIC [id number] 11:14:00 Test Item Value Reference Range Interpretation [...] S NOT APPLICABLE FOR DIALYSIS PATIEN TS. Academic Advisor ID [place] MARCELLE FHEPATIC FUNCTION [id number] 11:14:00 Test Item Value Reference Range Interpretation [...] (test code = 34 U/L 6-55 347) Academic Advisor ID - MARCELLE [id number] 11:09:00 Test Item Value Reference Range Interpretation Comments PARTIAL THROMBOPLASTIN TIME 28.8 seconds 22.5-36.0 (BEAKER) (test code = 760) PROTHROMBIN [id number] 11:08:00 Test Item Value Reference Range Interpretation [...] is 2.5-3.5 for patients wiht mechanical heart valves.CBC W/PLT COUNT & AUTO [id number] 10:53:00 Test Item Value Reference Range Interpretation [...] = 2801) BODY FLUID CELL COUNT WITH [id number] 14:49:00 Test Item Value Reference Range Interpretation [...] EDTA Tube (test code = 2873) TACROLIMUS [id number] 14:35:00 Test Item Value Reference Range Interpretation Comments TACROLIMUS BLOOD (BEAKER) (test 6.7 ng/mL 10.0-20.0 L code = 657) Academic Advisor ID - SAMY DAWN/Cassandra, [id number] 13:52:00Referring: Dr. Diane Sears ascitic fluid for cell count and differential If Cr > 1.5, do not remove more than 3.5L of ascitic fluid. If > 3L removed, please administer 200 mL of albumin 25%(50 grams) IV x 1Labs to be ordered:->Other (please add comment)Reason for Exam:->ascitesFINAL REPORT Ultrasound guided paracentesis Clinical History: Ascites. Sedation: None. Fishing Lure Assembler: Aure Huerta PA-C Supervising Physician: Edmund Barraza MD Emergency Response Officer: None. Estimated Blood Loss: < 1 mL. [...] Doppler to exclude presence of blood vessels traversingthe area, the skin was prepped and draped in the usual sterile manner. After local anesthesia was achieved with lidocaine, a 5 Bermudian one-step catheter was advanced into the peritoneal cavity under ultrasound guidance. After completion of drainage, the catheter was removed. There was no evidence of complication. Impression:Successful ultrasound guided paracentesis. Signed: Edmund Barraza MDReport Verified Date/Time: 08/19/2019 13:52:23 Reading Location: [address] Ultrasound Reading Room BASIC METABOLIC [id number] 13:08:00 Test Item Value Reference Range Interpretation [...] S NOT APPLICABLE FOR DIALYSIS PATIEN TS. Academic Advisor ID - ROSIANGCBC W/PLT COUNT & AUTO [id number] 12:54:00 Test Item Value Reference Range Interpretation [...] 0-1 PERCENT (BEAKER) (test code = 2801) [id number] 11:24:00 Test Item Value Reference Range Interpretation Comments POC-CREATININE 1.9 mg/dL 0.6-1.3 H : TESTED AT [facility] (BEAKER) (test [address] [facility] code = 1859) [place], [address]: Academic Advisor/Techni demetrice ID = [id number] for SHOULDERSELLE POC-EGFR (BEAKER) 36 mL/min/1.73M2 (test code = 1860) BODY FLUID CELL COUNT WITH [id number] 19:33:00 Test Item Value Reference Range Interpretation [...] EDTA Tube (test code = 2873) U/S, [id number] 17:37:00Referring: Dr. Diane Sears ascitic fluid for cell count and [...] to large volume of ascites. A pocket of fluid was identified in the right lower quadrant of the abdomen. This area was marked. The area was prepped and draped in the usual sterile fashion. 1% lidocaine was applied to the skin and deep soft tissues. A 5 Bermudian one-step catheter was inserted and removed from the peritoneal space and approximately 3.2 liters of clear yellow fluid was aspirated from the abdomen. Specimens were collected for the lab. There were no immediate complications. Impression: Successful ultrasound guided paracentesis with aspiration of 3.2 liters of fluid. Signed: Javed aPez MDReport Verified Date/Time: 08/12/2019 17:37:37 Reading Location: [address] Body Reading Room -[id number] 16:08:00 Test Item Value Reference Range Interpretation Comments POC-CREATININE 2.2 mg/dL 0.6-1.3 H TESTED AT [facility] [address] (BEAKER) (test [facility] [place] code = 1859) [address] POC-EGFR (BEAKER) 30 mL/min/1.73M2 (test code = 1860) BODY FLUID CELL COUNT WITH [id number] 15:08:00 Test Item Value Reference Range Interpretation [...] EDTA Tube (test code = 2873) U/S, [id number] 13:11:00Referring: Dr. Diane Sears ascitic fluid for cell count and differential If Cr > 1.5, do not remove more than 3.5L of ascitic fluid. If > 3L removed, please administer 200 mL of albumin 25%(50 grams) IV x 1Labs to be ordered:->Other (please add comment)Reason for Exam:->ascitesFINAL REPORT Ultrasound guided paracentesis. Clinical History: Ascites. Sedation: None. Fishing Lure Assembler: Lynn Chávez PA-C Emergency Response Officer: None. Estimated Blood Loss: < 1 cc. Specimen: 2850 cc of clear yellow fluid, samples sent to laboratory. Technique: Informed consent was obtained. The risks of pain, bleeding, infection, bowel perforation, injury to adjacent structures, and adverse medication reactions were discussed with the patient. After informed consent was obtained, thepatient's abdomen was scanned. The RLQ of the abdomen was selected for paracentesis. After the largest fluid pocket area was marked, and the anterior abdominal wall was evaluated with color Doppler to exclude presence of blood vessels traversing the area, the skin was prepped and draped in the usual sterile manner. After local anesthesia was achieved with 2% lidocaine, a 5 Bermudian one-step catheter was advanced into the peritoneal cavity under ultrasound guidance. After completion of drainage, the catheter was removed. There was no evidence of complication. Impression:Successful ultrasound guided paracentesis. Signed: Edmund Barrazaeport Verified Date/Time: 08/05/2019 13:11:25 Reading Location: [facility] P006J Ultrasound Reading Room 01:11 [id number] 09:57:00 Test Item Value Reference Range Interpretation Comments POC-CREATININE 1.6 mg/dL 0.6-1.3 H TESTED AT [facility] [address] (BEAKER) ([place] code = 1859) [address] POC-EGFR (BEAKER) 44 mL/min/1.73M2 (test code = 1860) BODY FLUID CELL COUNT WITH [id number] 22:25:00 Test Item Value Reference Range Interpretation [...] Vial (test code = 2873) HEPATIC FUNCTION [id number] 17:04:00 Test Item Value Reference Range Interpretation [...] (test code = 23 U/L 6-55 347) Academic Advisor ID - PIAYA LBASIC METABOLIC [id number] 17:04:00 Test Item Value Reference Range Interpretation [...] S NOT APPLICABLE FOR DIALYSIS PATIEN TS. Academic Advisor ID - PIAYA [id number] 17:00:00 Test Item Value Reference Range Interpretation [...] is 2.5-3.5 for patients wiht mechanical heart valves.CBC W/PLT COUNT & AUTO [id number] 16:45:00 Test Item Value Reference Range Interpretation [...] PERCENT (BEAKER) (test code = 2801) BLOOD [id number] 14:00:00 Test Item Value Reference Range Interpretation Comments CULTURE (BEAKER) (test No growth in 5 days code = 1095) BLOOD [id number] 14:00:00 Test Item Value Reference Range Interpretation Comments CULTURE (BEAKER) (test No growth in 5 days code = 1095) BODY FLUID CULTURE + GRAM [id number] 09:19:00 Test Item Value Reference Range Interpretation Comments CULTURE (BEAKER) (test No growth code = 1095) GRAM STAIN RESULT 2+ White blood cells (BEAKER) (test code = seen 1123) GRAM STAIN RESULT No organisms seen (BEAKER) (test code = 26812) TACROLIMUS [id number] 11:05:00 Test Item Value Reference Range Interpretation Comments TACROLIMUS BLOOD (BEAKER) (test 9.4 ng/mL 10.0-20.0 L code = 657) Academic Advisor ID [place] IBANEZ FBASIC METABOLIC [id number] 07:34:00 Test Item Value Reference Range Interpretation [...] S NOT APPLICABLE FOR DIALYSIS PATIEN TS. Academic Advisor ID - CASEY [id number] 07:30:00 Test Item Value Reference Range Interpretation Comments PHOSPHORUS (BEAKER) (test code = 2.8 mg/dL 2.3-4.7 604) Academic Advisor ID - CASEY [id number] 07:30:00 Test Item Value Reference Range Interpretation Comments MAGNESIUM (BEAKER) (test code = 1.7 mg/dL 1.6-2.6 627) Academic Advisor ID - CASEY MHEPATIC FUNCTION [id number] 07:30:00 Test Item Value Reference Range Interpretation [...] (test code = 18 U/L 6-55 347) Academic Advisor ID - CASEY MCBC W/PLT COUNT & AUTO [id number] 07:15:00 Test Item Value Reference Range Interpretation [...] PERCENT (BEAKER) (test code = 2801) TACROLIMUS [id number] 14:21:00 Test Item Value Reference Range Interpretation Comments TACROLIMUS BLOOD (BEAKER) (test 5.3 ng/mL 10.0-20.0 L code = 657) Academic Advisor ID - AAHAMIDBASIC METABOLIC [id number] 07:26:00 Test Item Value Reference Range Interpretation [...] S NOT APPLICABLE FOR DIALYSIS PATIEN TS. Academic Advisor ID - MARCELLE [id number] 07:22:00 Test Item Value Reference Range Interpretation Comments PHOSPHORUS (BEAKER) (test code = 3.4 mg/dL 2.3-4.7 604) Academic Advisor ID - MARCELLE [id number] 07:22:00 Test Item Value Reference Range Interpretation Comments MAGNESIUM (BEAKER) (test code = 1.9 mg/dL 1.6-2.6 627) Academic Advisor ID - MARCELLE FHEPATIC FUNCTION [id number] 07:22:00 Test Item Value Reference Range Interpretation [...] (test code = 19 U/L 6-55 347) Academic Advisor ID - MARCELLE FCBC W/PLT COUNT & AUTO [id number] 06:59:00 Test Item Value Reference Range Interpretation [...] PERCENT (BEAKER) (test code = 2801) U/S, [id number] 17:39:00Referring: Dr. Diane Olivas to be ordered:->Body Fluid Culture (w/Gram Stain, C\\T\\S)cell countReason for exam:- >ABDOMINAL PAINReason for exam:->EMESISFINAL REPORT Ultrasound guided paracentesis Clinical History: Ascites. Sedation: None. Fishing Lure Assembler: Aure Urbanelli, PA-C Supervising Physician: Denilson Liao MD Emergency Response Officer: None. Estimated Blood Loss: < 1 mL. Specimen: 3800 mL of clear yellow fluid, samples sent to laboratory. Technique: Informed consent was obtained. The risks of pain, bleeding, infection, bowel perforation, injury to adjacent structures, and adverse medication reactions were discussed with the patient.After informed consent was obtained, the patient's abdomen [...] anesthesia was achieved with lidocaine, a 5 Bermudian one-step catheter was advanced into the peritoneal cavity under ultrasound guidance. After completion of drainage, the catheter was removed. There was no evidence of complication. Impression:Successful ultrasound guided paracentesis. Signed: Denilson Liao MDReport Verified Date/Time: 07/28/2019 17:39:14 Reading Location: [address] Ultrasound Reading Room CMV PCR, [id number] 17:32:00 Test Item Value Reference Range Interpretation [...] management of antiviral therapy. For treatment of CMV infection due to reactivation in transplant recipients, a threshold between 4,000 and 5,000 copies/mLis suggested. For treatment of primary CMV infection, a lower threshold can be used.CMV infection may also be monitored using weekly serial measurements. Serial measurements of CMV DNA viral load can be evaluated by identifying a 10-fold change, as [...] and its performance characteristics determined by the [facility] Pathol ogy Department, Section of Molecular Pathology. It has not been cleared or approved by the U.S. Foodand Drug Administration (FDA), since FDA approval is not required for clinical use of the test. Validation was done as required by The Clinical Laboratory Improvement Amendments of 1988.CBC W/PLT COUNT & AUTO [id number] 11:59:00 Test Item Value Reference Range Interpretation [...] CONCENTRATION Decreased (CELLAVISION)(BEAKER) (test code = 3438) Academic Advisor ID - Phillip EscobarUser comments: Slide comments:TACROLIMUS LEVEL 2019-07-28 10:17:00 Test Item Value Reference Range Interpretation Comments TACROLIMUS BLOOD (BEAKER) (test 3.9 ng/mL 10.0-20.0 L code = 657) Academic Advisor ID - PATSYRAD, CHEST, 1 VIEW, NON [id number] 09:31:00Referring: Dr. Diane Fernando for exam:->s/p lung transplantFINAL REPORT TECHNIQUE: Frontal chest radiograph dated 07/28/2019. CLINICAL HISTO RY: Status post lung transplant COMPARISON STUDY: Chest radiographs dated 07/06/2019 IMPRESSION:There is improved aeration of the left lung base. Stable airspace opacities seen throughout the right lung.No pleural effusion or pneumothorax. Cardiomediastinal silhouette is normal in size. No pulmonary thuy ma. Midline sternotomy wires are intact and well aligned. Signed: Micheal Crenshaw MDReport Verified Date/Time: 07/28/2019 09:31:05 Reading Location: [facility] Reading Room [id number] 05:42:00 Test Item Value Reference Range Interpretation Comments PHOSPHORUS (BEAKER) (test code = 3.3 mg/dL 2.3-4.7 604) Academic Advisor ID - CASEY [id number] 05:42:00 Test Item Value Reference Range Interpretation Comments MAGNESIUM (BEAKER) (test code = 2.0 mg/dL 1.6-2.6 627) Academic Advisor ID - CASEY MBASIC METABOLIC [id number] 05:42:00 Test Item Value Reference Range Interpretation [...] S NOT APPLICABLE FOR DIALYSIS PATIEN TS. Academic Advisor ID - CASEY MHEPATIC FUNCTION [id number] 05:42:00 Test Item Value Reference Range Interpretation [...] (test code = 21 U/L 6-55 347) Academic Advisor ID [place] CASEY MBODY FLUID CELL COUNT WITH [id number] 19:31:00 Test Item Value Reference Range Interpretation [...] pg/mL 0-100 H (test code = 700) Academic Advisor ID - MARCELLE [id number] 13:07:00 Test Item Value Reference Range Interpretation Comments PHOSPHORUS (BEAKER) (test code = 2.5 mg/dL 2.3-4.7 604) Academic Advisor ID [place] IBANEZ [id number] 13:07:00 Test Item Value Reference Range Interpretation Comments MAGNESIUM (BEAKER) (test code = 1.5 mg/dL 1.6-2.6 L 627) Academic Advisor ID [place] IBANEZ FBASIC METABOLIC [id number] 13:07:00 Test Item Value Reference Range Interpretation [...] S NOT APPLICABLE FOR DIALYSIS PATIEN TS. Academic Advisor ID [place] IBANEZ FHEPATIC FUNCTION [id number] 13:07:00 Test Item Value Reference Range Interpretation [...] (test code = 26 U/L 6-55 347) Academic Advisor ID [place] IBANEZ [id number] 13:07:00 Test Item Value Reference Range Interpretation Comments AMYLASE (BEAKER) (test code = 349) 55 U/L 25-125 Academic Advisor ID [place] IBANEZ [id number] 13:07:00 Test Item Value Reference Range Interpretation Comments LIPASE (BEAKER) (test code = 749) 14 U/L 8-78 Academic Advisor ID - MARCELLE FLACTIC ACID, [id number] 13:01:00 Test Item Value Reference Range Interpretation Comments LACTATE BLOOD VENOUS 1.0 mmol/L 0.5-2.2 Specime n slightly (2) (BEAKER) (test hemolyzed code = 2872) Academic Advisor ID [place] IBANEZ FCBC W/PLT COUNT & AUTO [id number] 12:40:00 Test Item Value Reference Range Interpretation [...] (BEAKER) (test code = 2801) BLOOD GAS, [id number] 12:40:00 Test Item Value Reference Range Interpretation [...] (BEAKER) (test code = 1819) 21.0 % [id number] 12:29:00 Test Item Value Reference Range Interpretation [...] is 2.5-3.5 for patients wiht mechanical heart valves.U/S, [id number] 11:38:00 Referring: Dr. Diane Sears ascitic fluid for cell count and differential If Cr > 1.5, do not remove more than 3.5L of ascitic fluid. If > 3L removed, please administer 200 mL of albumin 25%(50 grams) IV x 1Labs to be ordered:->Other (please add comment)Reason for Exam:->ascitesFINAL REPORT Ultrasound guided paracentesis. Clinical History: Ascites. Sedation: None. Fishing Lure Assembler: Lynn Chávez PA-C Emergency Response Officer: None. Estimated Blood Loss: < 1 cc. Specimen: 3300 cc of clear yellow fluid, samples sent to laboratory. Technique: Informed consent was obtained. The risks of pain, bleeding, infection, bowel perforation, injury to adjacent structures, and ad verse medication reactions were discussed with the patient. After informed consent was obtained, thepatient's abdomen was scanned. The RLQ of the abdomen was selected for paracentesis. After the largest fluid pocket area was marked, and the anterior abdominal wall was evaluated with color Doppler to exclude presence of blood vessels traversing the area, the skin was prepped and draped in the usual sterile manner. After local anesthesia was achieved with 2% lidocaine, a 5 Bermudian one-step catheter was advanced into the peritoneal cavity under ultrasound guidance. After completion of drainage, the catheter was removed. There was no evidence of complication. Impression:Successful ultrasound guided paracentesis. Signed: Steven Kimbrough MDReport Verified Date/Time: 07/13/2019 11:38:58 Reading Location: [address] Ultrasound Reading Room D [id number] 13:44:00 Test Item Value Reference Range Interpretation Comments CULTURE (BEAKER) (test No growth in 5 days code = 1095) BLOOD [id number] 13:44:00 Test Item Value Reference Range Interpretation Comments CULTURE (BEAKER) (test No growth in 5 days code = 1095) BODY FLUID CULTURE + GRAM [id number] 10:08:00 Test Item Value Reference Range Interpretation Comments CULTURE (BEAKER) (test code No growth = 1095) GRAM STAIN RESULT (BEAKER) <1+ WBCs (test code = 1123) GRAM STAIN RESULT (BEAKER) No organisms seen (test code = 94108) [id number] 15:38:00 Test Item Value Reference Range Interpretation Comments POC-CREATININE 1.5 mg/dL 0.6-1.3 H TESTED AT [facility] 6720 (BEAKER) (test [place] code = 1859) [address] POC-EGFR (BEAKER) 48 mL/min/1.73M2 (test code = 1860) TACROLIMUS [id number] 10:37:00 Test Item Value Reference Range Interpretation Comments TACROLIMUS BLOOD (BEAKER) (test 4.6 ng/mL 10.0-20.0 L code = 657) [id number] 07:42:00 Test Item Value Reference Range Interpretation Comments MAGNESIUM (BEAKER) (test code = 1.6 mg/dL 1.6-2.6 627) BASIC METABOLIC [id number] 07:42:00 Test Item Value Reference Range Interpretation [...] PATIEN TS. CBC W/PLT COUNT & AUTO [id number] 07:19:00 Test Item Value Reference Range Interpretation [...] = 2801) BODY FLUID CELL COUNT WITH [id number] 14:42:00 Test Item Value Reference Range Interpretation [...] EDTA Tube (test code = 2873) U/S, [id number] 13:48:00Referring: Dr. Diane Olivas to be ordered:->Body Fluid Culture (w/Gram Stain, C\\T\\S)fluid cell countLabs to be ordered:->Glucose+LDH+ProteinLabs to be ordered:->Other (please add comment)Reason for exam:->abdominal distention and ascites.FINAL REPORT Ultrasound guided paracentesis. Clinical History: Ascites. Sedation: None. Fishing Lure Assembler: Lynn Chávez PA-C Emergency Response Officer: None. Estimated Blood Loss: < 1 cc. Specimen: 2800 cc of clear yellow fluid, samples sent to laboratory. Technique: Informed consent was obtained. The risks of pain, bleeding, infection, bowel perforation, injury to adjacent structures, and ad verse medication reactions were discussed with the patient. After informed consent was obtained, thepatient's abdomen was scanned. The RLQ of the abdomen was selected for paracentesis. After the largest fluid pocket area was marked, and the anterior abdominal wall was evaluated with color Doppler to exclude presence of blood vessels traversing the area, the skin was prepped and draped in the usual sterile manner. After local anesthesia was achieved with 2% lidocaine, a 5 Bermudian one-step catheter was advanced into the peritoneal cavity under ultrasound guidance. After completion of drainage, the catheter was removed. There was no evidence of complication. Impression:Successful ultrasound guided paracentesis. Signed: Edmund Barraza MDReport Verified Date/Time: 07/07/2019 13:48:10 Reading Location: [address] Ultrasound Reading Room TACROLIMUS LEVEL 2019-07-07 10:03:00 Test Item Value Reference Range Interpretation Comments TACROLIMUS BLOOD (BEAKER) (test 3.5 ng/mL 10.0-20.0 L code = 657) [id number] 07:00:00 Test Item Value Reference Range Interpretation Comments PHOSPHORUS (BEAKER) (test code = 2.9 mg/dL 2.3-4.7 604) [id number] 07:00:00 Test Item Value Reference Range Interpretation Comments MAGNESIUM (BEAKER) (test code = 1.4 mg/dL 1.6-2.6 L 627) HEPATIC FUNCTION [id number] 07:00:00 Test Item Value Reference Range Interpretation [...] 6-55 347) CBC W/PLT COUNT & AUTO [id number] 07:00:00 Test Item Value Reference Range Interpretation [...] (BEAKER) (test code = 2801) BASIC METABOLIC [id number] 07:00:00 Test Item Value Reference Range Interpretation [...] APPLICABLE FOR DIALYSIS PATIEN TS. RESPIRATORY PANEL [id number] 17:34:00 Test Item Value Reference Range Interpretation [...] (test Not detected Not detected, code = 6044) Equivocal CORONAVIRUS 229E (BEAKER) Not detected Not [...] decisions. This sample was tested at the [facility] using the [employer] FilmArray Respiratory Panel. It is FDA cleared and has been verified and approved by the [facility] for clinical use on nasopharyngeal swab specimens.The performance of the FilmArrayRP has not been established in individuals who received influenza vaccine. Recent administration of a nasal influenza vaccine may cause false positive results for Influenza A and/orInfluenza B.TACROLIMUS [id number] 09:50:00 Test Item Value Reference Range Interpretation Comments TACROLIMUS BLOOD (BEAKER) (test 3.6 ng/mL 10.0-20.0 L code = 657) BASIC METABOLIC [id number] 07:47:00 Test Item Value Reference Range Interpretation [...] S NOT APPLICABLE FOR DIALYSIS PATIEN TS. [id number] 07:39:00 Test Item Value Reference Range Interpretation Comments PHOSPHORUS (BEAKER) (test code = 2.6 mg/dL 2.3-4.7 604) [id number] 07:39:00 Test Item Value Reference Range Interpretation Comments MAGNESIUM (BEAKER) (test code = 1.4 mg/dL 1.6-2.6 L 627) HEPATIC FUNCTION [id number] 07:39:00 Test Item Value Reference Range Interpretation [...] 6-55 347) CBC W/PLT COUNT & AUTO [id number] 06:46:00 Test Item Value Reference Range Interpretation [...] PERCENT (BEAKER) (test code = 2801) PROTHROMBIN [id number] 02:37:00 Test Item Value Reference Range Interpretation [...] is 2.5-3.5 for patients wiht mechanical heart valves.[id number] 02:37:00 Test Item Value Reference Range Interpretation [...] is 2.5-3.5 for patients wiht mechanical heart valves.BASIC METABOLIC [id number] 02:23:00 Test Item Value Reference Range Interpretation [...] S NOT APPLICABLE FOR DIALYSIS PATIEN TS. [id number] 02:22:00 Test Item Value Reference Range Interpretation Comments PHOSPHORUS (BEAKER) (test code = 2.1 mg/dL 2.3-4.7 L 604) [id number] 02:22:00 Test Item Value Reference Range Interpretation Comments MAGNESIUM (BEAKER) (test code = 1.4 mg/dL 1.6-2.6 L 627) HEPATIC FUNCTION [id number] 02:22:00 Test Item Value Reference Range Interpretation [...] 29 U/L 6-55 347) RAD, CHEST, 2 [id number] 02:14:00Referring: Dr. Diane Fernando for exam:->pneumoniaFINAL REPORT CLINICAL HISTORY: Pneumonia Two views of the chest are submitted. COMPARISON: 05/19/2019 The cardiac silhouette is within normal limits for size. Sternotomy wires are in place. Diffuse interstitial coarsening and vague airspace opacities in the left greater than rightlungs, a nonspecific appearance which could reflect asymmetrical pulmonary edema or multifocal pneumonitis. Blunting of the costophrenic sulci suggests small effusions or pleural thickening. There is no pneumothorax or acute bony abnormality. Signed: Karissa Romero MDReport Verified Date/Time: 07/06/2019 02:14:45 CBC W/PLT COUNT & AUTO [id number] 01:50:00 Test Item Value Reference Range Interpretation [...] PERCENT (BEAKER) (test code = 2801) TACROLIMUS [id number] 13:42:00 Test Item Value Reference Range Interpretation Comments TACROLIMUS BLOOD (BEAKER) (test 5.3 ng/mL 10.0-20.0 L code = 657) [id number] 12:03:00 Test Item Value Reference Range Interpretation Comments PHOSPHORUS (BEAKER) (test code = 2.9 mg/dL 2.3-4.7 604) [id number] 12:03:00 Test Item Value Reference Range Interpretation Comments MAGNESIUM (BEAKER) (test code = 1.7 mg/dL 1.6-2.6 627) COMPREHENSIVE METABOLIC [id number] 12:03:00 Test Item Value Reference Range Interpretation [...] = 635) CBC W/PLT COUNT & AUTO [id number] 11:41:00 Test Item Value Reference Range Interpretation [...] PERCENT (BEAKER) (test code = 2801) U/S, [id number] 12:23:00Referring: Dr. Diane Fernando for exam:->ABDOMINAL PAINReason for exam:->ASCITESFINAL REPORT Procedure: Ultrasound-Guided Paracentesis: Clinical History: Ascites Physician: Natali Sedation: None Local anesthesia: 1% Xylocaine and sodium bicarbonate Technique: Following informed consent, the right abdomen was prepped and draped with maximal sterile barrier technique and local anesthesia given. A 5 F paracentesis catheter was inserted into the peritoneal space with ultrasound guidance and 2600 cc of yellow ascites was aspirated. The catheter was removed. No immediate complications were noted. Impression: Uncomplicated ultrasound-guided paracentesis. Signed: Joey Liueport Verified Date/Time: 06/27/2019 12:23:23 Reading Location: [address] Transitional Reading Room BASI METABOLIC [id number] 10:54:00 Test Item Value Reference Range Interpretation [...] NOT APPLICABLE FOR DIALYSIS PATIEN TS. PROTHROMBIN [id number] 10:41:00 Test Item Value Reference Range Interpretation [...] is 2.5-3.5 for patients wiht mechanical heart valves.CBC W/PLT COUNT & AUTO [id number] 10:35:00 Test Item Value Reference Range Interpretation [...] PERCENT (BEAKER) (test code = 2801) TACROLIMUS [id number] 14:52:00 Test Item Value Reference Range Interpretation Comments TACROLIMUS BLOOD (BEAKER) (test 7.9 ng/mL 10.0-20.0 L code = 657) [id number] 14:27:00 Test Item Value Reference Range Interpretation Comments MAGNESIUM (BEAKER) (test code = 1.6 mg/dL 1.6-2.6 627) BASIC METABOLIC [id number] 14:27:00 Test Item Value Reference Range Interpretation [...] PATIEN TS. CBC W/PLT COUNT & AUTO [id number] 14:18:00 Test Item Value Reference Range Interpretation [...] (BEAKER) (test code = 2801) CMV PCR, [id number] 15:45:00 Test Item Value Reference Range Interpretation [...] management of antiviral therapy. For treatment of CMV infection due to reactivation in transplant recipients, a threshold between 4,000 and 5,000 copies/mLis suggested. For treatment of primary CMV infection, a lower threshold can be used.CMV infection may also be monitored using weekly serial measurements. Serial measurements of CMV DNA viral load can be evaluated by identifying a 10-fold change, as [...] and its performance characteristics determined by the [facility] Pathol ogy Department, Section of Molecular Pathology. It has not been cleared or approved by the U.S. Foodand Drug Administration (FDA), since FDA approval is not required for clinical use of the test. Validation was done as required by The Clinical Laboratory Improvement Amendments of 1988.TACROLIMUS LEVEL 2019-05-19 12:22:00 Test Item Value Reference Range Interpretation Comments TACROLIMUS BLOOD (BEAKER) (test 8.9 ng/mL 10.0-20.0 L code = 657) RAD, CHEST, 2 [id number] 11:35:00Referring: Dr. Diane Fernando for Exam:->s/p lung transplantFINAL REPORT INDICATION: s/p lung transplant COMPARISON: None TECHNIQUE: Frontal and lateral views of the chest. FINDINGS: Lungs and pleura: Clear lungs. No effusion.Heart and media stinum: Normal heart size. Unremarkable mediastinal contours.Osseous structures: No acute abnormality.Additional findings: Post procedure changes compatible with prior transplant. IMPRESSION: No acute intrathoracic abnormality. Signed: Fitz Fernandez MDRepsaint francis hospital & [facility] services Verified Date/Time: 05/19/2019 11:35:20 Reading Location: [facility] Radiology Reading Room COMPREHENSIVE METABOLIC PANEL 2019-05-19 10:12:00 Test Item Value Reference Range Interpretation [...] S NOT APPLICABLE FOR DIALYSIS PATIEN TS. [id number] 10:04:00 Test Item Value Reference Range Interpretation Comments PHOSPHORUS (BEAKER) (test code = 3.7 mg/dL 2.3-4.7 604) [id number] 10:04:00 Test Item Value Reference Range Interpretation Comments MAGNESIUM (BEAKER) (test code = 1.5 mg/dL 1.6-2.6 L 627) LACTATE DEHYDROGENASE (LDH)2019-05-19 10:04:00 Test Item Value Reference Range Interpretation Comments LACTATE DEHYDROGENASE (BEAKER) (test 186 U/L 125-220 code = 635) CBC W/PLT COUNT & AUTO [id number] 09:24:00 Test Item Value Reference Range Interpretation [...] (BEAKER) (test code = 2801) CMV PCR, [id number] 14:26:00 Test Item Value Reference Range Interpretation [...] management of antiviral therapy. For treatment of CMV infection due to reactivation in transplant recipients, a threshold between 4,000 and 5,000 copies/mLis suggested. For treatment of primary CMV infection, a lower threshold can be used.CMV infection may also be monitored using weekly serial measurements. Serial measurements of CMV DNA viral load can be evaluated by identifying a 10-fold change, as [...] and its performance characteristics determined by the [facility] Pathol ogy Department, Section of Molecular Pathology. It has not been cleared or approved by the U.S. Foodand Drug Administration (FDA), since FDA approval is not required for clinical use of the test. Validation was done as required by The Clinical Laboratory Improvement Amendments of 1988.MR, ABDOMEN, WITH 2019-05-13 15:52:00Referring: Dr. Diane Noriega MRCPWith MRCPLocation: For [place] Only->with MRCPFINAL REPORT TECHNIQUE: MRI of the [...] measures 1.9 cm. Conventional hepatic arterial anatomy. 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 GI TRACT: There are thickened loops of small bowel and colon, which likely related to patient's volume status. This is similarto comparison prior studies.. BONES AND SOFT TISSUES: Unremarkable. IMPRESSION: 1.Cirrhosis and portal hypertension. 2.A 1 cm segment arterial enhancing lesion without washout and associated T2 hyper intensity which could represent shunt. However dysplastic nodule or early HCC are considerations. Recommend follow-up MRI in three months for reevaluation. 3.Tiny arterial enhancing foci without associated T2 abnormality or washout are most likely perfusional. These can also be reassessed on follow-upMRI. 4.Cholelithiasis. Signed: Georgi Mancilla MDReport Verified Date/Time: 05/13/2019 15:52:20 Reading Location: [address] TACROLIMUS [id number] 13:36:00 Test Item Value Reference Range Interpretation Comments TACROLIMUS BLOOD (BEAKER) (test 9.8 ng/mL 10.0-20.0 L code = 657) [id number] 13:00:00 Test Item Value Reference Range Interpretation Comments PHOSPHORUS (BEAKER) (test code = 3.2 mg/dL 2.3-4.7 604) [id number] 13:00:00 Test Item Value Reference Range Interpretation Comments MAGNESIUM (BEAKER) (test code = 1.6 mg/dL 1.6-2.6 627) COMPREHENSIVE METABOLIC [id number] 13:00:00 Test Item Value Reference Range Interpretation [...] PATIEN TS. CBC W/PLT COUNT & AUTO [id number] 12:49:00 Test Item Value Reference Range Interpretation [...] 477) ARTIFACT (CELLAVISION)(BEAKER) Present (test code = 8652) PLATELET CONCENTRATION Decreased (CELLAVISION)(BEAKER) (test code = 9748) Received comment: User comments: Slide comments:TACROLIMUS [id number] 09:45:00 Test Item Value Reference Range Interpretation Comments TACROLIMUS BLOOD (BEAKER) (test 13.2 ng/mL 10.0-20.0 code = 657) ALPHA FETOPROTEIN (AFP), TUMOR [id number] 18:10:00 Test Item Value Reference Range Interpretation Comments ALPHA-FETOPROTEIN (BEAKER) (test 2.8 ng/mL <10.0 code = 1094) [id number] 17:45:00 Test Item Value Reference Range Interpretation Comments MAGNESIUM (BEAKER) (test code = 1.6 mg/dL 1.6-2.6 627) BASIC METABOLIC [id number] 17:45:00 Test Item Value Reference Range Interpretation [...] APPLICABLE FOR DIALYSIS PATIEN TS. HEPATIC FUNCTION [id number] 17:45:00 Test Item Value Reference Range Interpretation [...] = 32 U/L 6-55 347) BASIC METABOLIC [id number] 17:43:00 Test Item Value Reference Range Interpretation [...] APPLICABLE FOR DIALYSIS PATIEN TS. URINALYSIS W/ [id number] 17:35:00 Test Item Value Reference Range Interpretation [...] 514) SOURCE(BEAKER) (test code = 2795) PROTHROMBIN [id number] 17:26:00 Test Item Value Reference Range Interpretation [...] is 2.5-3.5 for patients wiht mechanical heart valves.CBC W/PLT COUNT & AUTO [id number] 17:19:00 Test Item Value Reference Range Interpretation [...] = 2801) CBC W/PLT COUNT & AUTO [id number] 17:18:00 Test Item Value Reference Range Interpretation [...] = 2801) BODY FLUID CULTURE + GRAM [id number] 14:13:00 Test Item Value Reference Range Interpretation Comments CULTURE (BEAKER) (test code No growth = 1095) GRAM STAIN RESULT (BEAKER) 1+ WBCs (test code = 1123) GRAM STAIN RESULT (BEAKER) No organisms seen (test code = 84112) LACTATE DEHYDROGENASE (LDH), BODY [id number] 19:19:00 Test Item Value Reference Range Interpretation Comments LACTATE DEHYDROGENASE FLUID (BEAKER) < U/L (test code = 634) Absence of reference range indicates that normals have not been defined.Assay performance has not been validated for this type of specimen.U/S, PARACENTESIS 2019-05-01 18:38:00Referring: Dr. Diane Olivas to be ordered:->Body Fluid Culture (w/Gram Stain, C\\T\\S)Reason for exam:->ABDOMINAL PAINFINAL REPORT Ultrasound guided paracentesis Clinical History: Ascites. Sedation: None. Fishing Lure Assembler: Aure Huerta PA-C Supervising Physician: Torey Brukett MD Emergency Response Officer: None. Estimated Blood Loss: < 1 mL. [...] the usual sterile manner. After local anesthesia wasachieved with lidocaine, a 5 Bermudian one-step catheter was advanced into the peritoneal cavity under u ltrasound guidance. After completion of drainage, the catheter was removed. There was no evidence ofcomplication. This procedure was performed by PRIYANKA Ramírez under direct supervision of Torey Burkett M.D. Impression:Successful ultrasound guided paracentesis. Signed: Torey Burkett MDReport Verified Date/Time: 05/01/2019 18:38:36 Reading Location: [facility] P006J Ultrasound Reading Room U/S, [id number] 18:05:00Referring: Dr. Diane Olivas to be ordered:->Body Fluid Culture (w/Gram Stain, C\\T\\S)Labs to be ordered:->Glucose+LDH+ProteinReason for exam:->ABD SWELLINGShould this be performed at the bedside?->YesFINAL REPORT Ultrasound guided paracentesis, 05/01/2019. Clinical History: Ascites. Sedation: None. Fishing Lure Assembler: Lola. Emergency Response Officer: None. Estimated Blood Loss: < 1 cc. Specimen: 800 cc of clear yellow fluid, samples sent to laboratory. Technique: Informed consent was obtained. The risks of pain, bleeding, infection, bowel perforation, injury to adjacent structures, and adverse medication reactions were discussed with the patient. After informed consent was obtained, the pat ient's abdomen was scanned. The right lower quadrant of the abdomen was selected for paracentesis. After the largest fluid pocket area was marked, and the anterior abdominal wall was evaluated with color Doppler to exclude presence of blood vessels traversing the area, the skin was prepped and draped in the usual sterile manner. After local anesthesia was achieved with 1% lidocaine, a 5 Bermudian one-step catheter was advanced into the peritoneal cavity under ultrasound guidance. After completion of drainage, the catheter was removed. There was no evidence of complication. Patient Disposition: The patient was discharged from the ultrasound department after the paracentesis, in good condition. Impression:Successful ultrasound guided paracentesis. Signed: Rohit Ruth Verified Date/Time: 05/01/2019 18:05:44 Reading Location: [address] Body Reading Room BODY FLUID CELL COUNT WITH [id number] 17:23:00 Test Item Value Reference Range Interpretation [...] (BEAKER) (test code = 2873) ALBUMIN, BODY [id number] 17:17:00 Test Item Value Reference Range Interpretation Comments ALBUMIN FLUID (BEAKER) (test code = 0.5 gm/dL 501) Reference Range: No Normals Assay performance has not been validated for this type of specimen.PROTEIN, BODY [id number] 17:16:00 Test Item Value Reference Range Interpretation [...] 10.0-20.0 L code = 657) COMPREHENSIVE METABOLIC [id number] 15:01:00 Test Item Value Reference Range Interpretation [...] S NOT APPLICABLE FOR DIALYSIS PATIEN TS. [id number] 14:57:00 Test Item Value Reference Range Interpretation Comments MAGNESIUM (BEAKER) (test code = 1.8 mg/dL 1.6-2.6 627) [id number] 14:57:00 Test Item Value Reference Range Interpretation [...] is 2.5-3.5 for patients wiht mechanical heart valves.RAD, CHEST, 1 VIEW, NON [id number] 14:53:00Referring: Dr. Diane Fernando for exam:->chest painShould this be performed at the bedside?->YesFINAL REPORT TECHNIQUE: Frontal chest radiograph dated 05/01/2019. CLINICAL HISTORY: Chest pain COMPARISON STUDY: Chest radiograph dated 04/22/2019 IMPRESSION:Blunting along the costophrenic angles is due to either scarring and/or trace effusion. No pneumothorax. Cardiomediastinal silhouette is normal in size. No pulmonary edema. No fracture. Midline sternotomy wires are intact and well aligned. Signed: Micheal Crenshaw MDReport Verified Date/Time: 05/01/2019 14:53:51 Reading Location: [facility] Reading Room 02:53 PMCBC W/PLT COUNT & AUTO [id number] 14:42:00 Test Item Value Reference Range Interpretation [...] = 2801) BODY FLUID CULTURE + GRAM [id number] 11:52:00 Test Item Value Reference Range Interpretation Comments CULTURE (BEAKER) (test No growth code = 1095) GRAM STAIN RESULT <1+ White blood cells (BEAKER) (test code = seen 1123) GRAM STAIN RESULT No organisms seen (BEAKER) (test code = 29861) BODY FLUID CELL COUNT WITH [id number] 18:29:00 Test Item Value Reference Range Interpretation [...] = 2873) CBC W/PLT COUNT & AUTO [id number] 14:08:00 Test Item Value Reference Range Interpretation [...] = 3438) Received comment: User comments: Slide comments:[id number] 12:58:00 Test Item Value Reference Range Interpretation Comments LIPASE (BEAKER) (test code = 749) 153 U/L 8-78 H BASIC METABOLIC [id number] 12:58:00 Test Item Value Reference Range Interpretation [...] APPLICABLE FOR DIALYSIS PATIEN TS. HEPATIC FUNCTION [id number] 12:58:00 Test Item Value Reference Range Interpretation [...] (test code = 37 U/L 6-55 347) [id number] 12:49:00 Test Item Value Reference Range Interpretation [...] is 2.5-3.5 for patients wiht mechanical heart valves.BLOOD [id number] 12:00:00 Test Item Value Reference Range Interpretation Comments CULTURE (BEAKER) (test No growth in 5 days code = 1095) BLOOD [id number] 12:00:00 Test Item Value Reference Range Interpretation Comments CULTURE (BEAKER) (test No growth in 5 days code = 1095) STOOL CULTURE + SHIGA [id number] 15:15:00 Test Item Value Reference Range Interpretation Comments CULTURE (BEAKER) No Salmonella, Shigella (test code = 1095) or Campylobacter isolated TACROLIMUS [id number] 09:27:00 Test Item Value Reference Range Interpretation Comments TACROLIMUS BLOOD (BEAKER) (test 9.5 ng/mL 10.0-20.0 L code = 657) CBC W/PLT COUNT & AUTO [id number] 08:36:00 Test Item Value Reference Range Interpretation [...] = 3438) Received comment: User comments: Slide comments:[id number] 07:02:00 Test Item Value Reference Range Interpretation Comments PHOSPHORUS (BEAKER) (test code = 2.7 mg/dL 2.3-4.7 604) [id number] 07:02:00 Test Item Value Reference Range Interpretation Comments MAGNESIUM (BEAKER) (test code = 1.7 mg/dL 1.6-2.6 627) BASIC METABOLIC [id number] 07:02:00 Test Item Value Reference Range Interpretation [...] APPLICABLE FOR DIALYSIS PATIEN TS. HEPATIC FUNCTION [id number] 07:02:00 Test Item Value Reference Range Interpretation [...] code = 29 U/L 6-55 347) CALCIUM, [id number] 06:41:00 Test Item Value Reference Range Interpretation Comments CALCIUM IONIZED (BEAKER) (test 1.10 mmol/L 1.12-1.27 L code = 698) PH, BLOOD (BEAKER) (test code = 7.41 1810) SHIGA TOXIN [id number] 13:55:00 Test Item Value Reference Range Interpretation Comments SHIGA TOXIN 1 (BEAKER) (test Not detected Not detected code = 2177) SHIGA TOXIN 2 (BEAKER) (test Not detected Not detected code = 2179) CBC W/PLT COUNT & AUTO [id number] 13:00:00 Test Item Value Reference Range Interpretation [...] few = 481) Wbc differential done manuallyTACROLIMUS [id number] 10:40:00 Test Item Value Reference Range Interpretation Comments TACROLIMUS BLOOD (BEAKER) (test 3.0 ng/mL 10.0-20.0 L code = 657) STOOL PATH [id number] 10:16:00 Test Item Value Reference Range Interpretation Comments PATHOGEN EXAM CHARGED (BEAKER) (test Done code = 2381) CALCIUM, [id number] 07:43:00 Test Item Value Reference Range Interpretation Comments CALCIUM IONIZED (BEAKER) (test 1.14 mmol/L 1.12-1.27 code = 698) PH, BLOOD (BEAKER) (test code = 7.42 1810) [id number] 06:35:00 Test Item Value Reference Range Interpretation Comments PHOSPHORUS (BEAKER) (test code = 2.4 mg/dL 2.3-4.7 604) [id number] 06:35:00 Test Item Value Reference Range Interpretation Comments MAGNESIUM (BEAKER) (test code = 1.6 mg/dL 1.6-2.6 627) BASIC METABOLIC [id number] 06:35:00 Test Item Value Reference Range Interpretation [...] APPLICABLE FOR DIALYSIS PATIEN TS. HEPATIC FUNCTION [id number] 06:35:00 Test Item Value Reference Range Interpretation [...] = 30 U/L 6-55 347) RESPIRATORY PANEL [id number] 14:16:00 Test Item Value Reference Range Interpretation [...] decisions. This sample was tested at the [facility] Molecular Diagnostics Laboratory using the Sixteen Eighteen DesignArray Respiratory Panel. It is FDA cleared and has been verified and approved by the [facility] for clinical use on nasopharyngeal swab specimens.The performance of the FilmArrayRP has not been established in individuals who received influenza vaccine. Recent administration of a nasal influenza vaccine may cause false positive results for Influenza A and/orInfluenza B.TACROLIMUS [id number] 11:08:00 Test Item Value Reference Range Interpretation Comments TACROLIMUS BLOOD (BEAKER) (test 2.8 ng/mL 10.0-20.0 L code = 657) C. DIFFICILE GDH [id number] 10:53:00 Test Item Value Reference Range Interpretation Comments CDT TOXIN (test code Negative Negative = [id number]) CDT GDH ANTIGEN (test Negative Negative No ind ication of code = [id number]) Clostridi um difficile infection and n o colonization. Discontinue ent phyllis isolation and t herapy. Testing performed by [employer] Rapid Cassette Assay. For GDH, published sensitivity of the assay is 98.7% compared to cytotoxicity testing. For Toxin AB, published sensitivity is 87.8% and specificity 99.4% compared to cytotoxicity testing.Verification of kit performance was done by the [facility] Micro[facility] prior to clinical use.BASIC METABOLIC [id number] 10:21:00 Test Item Value Reference Range Interpretation [...] PATIEN TS. PERIPHERAL BLOOD SMEAR - PATHOLOGIST [id number] 09:58:00 Test Item Value Reference Range Interpretation Comments PERIPHERAL SMR REVIEW Rare atypical (BEAKER) (test code = lymphocytes, favore 2960) reactive. No circulating blasts. Clinical follow up recommended. [id number] Macario Walker, (BEAKER) (test code = M.D.(electronic 2375) signature) CBC W/PLT COUNT & AUTO [id number] 09:36:00 Test Item Value Reference Range Interpretation [...] 3438) Received comment: User comments: Slide comments:POCT-GLUCOSE [id number] 09:31:00 Test Item Value Reference Range Interpretation Comments POC-GLUCOSE METER 103 mg/dL 70-110 : TESTED A T [facility] 6720 (BEAKER) (test code = PARESH AVALOS [place], 1538) [address]: Academic Advisor/Techni demetrice ID = [id number] for BG SAUCEDO IMMUNOGLOBULIN G (IGG)2019-04-23 07:17:00 Test Item Value Reference Range Interpretation Comments IMMUNOGLOBULIN G (IGG) (BEAKER) 291 mg/dL 540-1,822 L (test code = 427) CALCIUM, [id number] 07:14:00 Test Item Value Reference Range Interpretation Comments CALCIUM IONIZED (BEAKER) (test 1.10 mmol/L 1.12-1.27 L code = 698) PH, BLOOD (BEAKER) (test code = 7.43 1810) [id number] 07:11:00 Test Item Value Reference Range Interpretation Comments CORTISOL, TOTAL (BEAKER) (test code 3.7 ug/dL 3.7-19.4 = 9125) BLOOD GAS, [id number] 07:09:00 Test Item Value Reference Range Interpretation [...] (BEAKER) (test code = 1819) 21.0 % [id number] 06:54:00 Test Item Value Reference Range Interpretation Comments PHOSPHORUS (BEAKER) (test code = 3.1 mg/dL 2.3-4.7 604) [id number] 06:54:00 Test Item Value Reference Range Interpretation Comments MAGNESIUM (BEAKER) (test code = 1.7 mg/dL 1.6-2.6 627) BASIC METABOLIC [id number] 06:54:00 Test Item Value Reference Range Interpretation [...] APPLICABLE FOR DIALYSIS PATIEN TS. HEPATIC FUNCTION [id number] 06:54:00 Test Item Value Reference Range Interpretation [...] = 28 U/L 6-55 347) VANCOMYCIN LEVEL, [id number] 06:48:00 Test Item Value Reference Range Interpretation Comments VANCOMYCIN RANDOM (BEAKER) (test 6.0 ug/mL code = 523) Reference Range: No NormalsLACTIC ACID, [id number] 06:42:00 Test Item Value Reference Range Interpretation Comments LACTATE BLOOD ARTERIAL (2) 2.1 mmol/L 0.5-2.2 (BEAKER) (test code = 2874) FECAL [id number] 01:59:00 Test Item Value Reference Range Interpretation Comments FECAL LEUKOCYTES No fecal leukocytes No fecal leukocytes (BEAKER) (test code = seen seen 992) BLOOD GAS, [id number] 23:40:00 Test Item Value Reference Range Interpretation [...] code = 1819) 21.0 % LEGIONELLA ANTIGEN, [id number] 19:38:00 Test Item Value Reference Range Interpretation Comments L. PNEUMOPHILA Negative - see Negative fo r L. SEROGP 1 UR AG comment pneumophila (BEAKER) (test code serogrou p 1 antigen, = 1156) suggesting no r ecent or current infe ction with this serog roup. Legionellosis c annot be ruled out si nce other serogroup s and species may cau se disease. STREP PNEUMONIAE [id number] 19:38:00 Test Item Value Reference Range Interpretation [...] the detection limit of the test.BASIC METABOLIC [id number] 19:14:00 Test Item Value Reference Range Interpretation [...] S NOT APPLICABLE FOR DIALYSIS PATIEN TS. [id number] 19:13:00 Test Item Value Reference Range Interpretation Comments HAPTOGLOBIN (BEAKER) (test code = 63 mg/dL 14-258 366) LACTIC ACID, [id number] 19:11:00 Test Item Value Reference Range Interpretation Comments LACTATE BLOOD VENOUS (2) (BEAKER) 2.0 mmol/L 0.5-2.2 (test code = 2872) LACTATE DEHYDROGENASE (LDH)2019-04-22 18:26:00 Test Item Value Reference Range Interpretation Comments LACTATE DEHYDROGENASE (BEAKER) (test 199 U/L 125-220 code = 635) U/S, ABDOMINAL, [id number] 16:07:00Referring: Dr. Diane Fernando for exam:->abnormal LFTs and renal fxnFINAL REPORT Ultrasound of the abdomen. Clinical History: abnormal LFTs and renal fxn. Comparison study: December 26, [address] scan of the chest dated January 20, 2019. Findings: The liver is echogenic in nature consistent with fatty infiltration. No definite focal masses are seen. Itmeasures 15.3 cm in length. There is no evidence of intra or extrahepatic biliary dilatation with the common bile duct measuring 5 mm. The main portal vein diameter is 1.3 cm. Multiple gallstones are seen with the gallbladder wall thickened measuring 8 mm. No gallbladder distention is seen. There is asmall amount of pericholecystic fluid. No sonographic Baltazar [...] likely to be related to a low albumin state. The gallbladder appears less distended than on the prior study dated December 27, 2017.4. Left renal cyst. Signed: Georgi Mancilla Verified Date/Time: 04/22/2019 16:07:26 Reading Location: [address] Radiology Reading Room CMV PCR, [id number] 15:18:00 Test Item Value Reference Range Interpretation [...] management of antiviral therapy. For treatment of CMV infection due to reactivation in transplant recipients, a threshold between 4,000 and 5,000 copies/mLis suggested. For treatment of primary CMV infection, a lower threshold can be used.CMV infection may also be monitored using weekly serial measurements. Serial measurements of CMV DNA viral load can be evaluated by identifying a 10-fold change, as [...] and its performance characteristics determined by the [facility] Pathol ogy Department, Section of Molecular Pathology. It has not been cleared or approved by the U.S. Foodand Drug Administration (FDA), since FDA approval is not required for clinical use of the test. Validation was done as required by The Clinical Laboratory Improvement Amendments of 1988.EBV VIRAL [id number] 15:07:00 Test Item Value Reference Range Interpretation [...] (2) real-time PCR amplification and detection with XPVY-0-gcsdfryd primers and probes. A well-conserved region of the EBNA-1 gene is targeted, along with an internal control sequence used to confirm PCR amplification. Asymptomatic carriers and viral genetic variation, among other factors, can affect the accuracy of nucleic acidtesting; therefore, results should be interpreted in light of clinical data.This test was developed and its performance characteristics determined by the [facility] Pathology Department,Section of Molecular Pathology. It has not been [...] comments: Slide comments:CBC W/PLT COUNT & AUTO [id number] 14:00:00 Test Item Value Reference Range Interpretation [...] WBC 0-0 (test code = 413) TROPONIN [id number] 13:53:00 Test Item Value Reference Range Interpretation [...] acute neurological disease, and persistent tachyarrhythmia.BASIC METABOLIC [id number] 13:45:00 Test Item Value Reference Range Interpretation [...] APPLICABLE FOR DIALYSIS PATIEN TS. CHLORIDE, RANDOM [id number] 12:41:00 Test Item Value Reference Range Interpretation Comments CHLORIDE URINE (BEAKER) (test code = 45 meq/L 682) Reference Range: No NormalsCREATININE, RANDOM [id number] 12:41:00 Test Item Value Reference Range Interpretation Comments CREATININE URINE (BEAKER) (test 131.6 mg/dL code = 375) Reference Range: No NormalsPOTASSIUM, RANDOM [id number] 12:41:00 Test Item Value Reference Range Interpretation Comments POTASSIUM URINE (BEAKER) (test 68.5 meq/L code = 195) Reference Range: No NormalsSODIUM, RANDOM [id number] 12:41:00 Test Item Value Reference Range Interpretation Comments SODIUM URINE (BEAKER) (test code = 27 meq/L 243) Reference Range: No NormalsUREA NITROGEN, RANDOM [id number] 12:41:00 Test Item Value Reference Range Interpretation Comments UREA NITROGEN URINE (BEAKER) (test 732 mg/dL code = 538) Reference Range: No NormalsURINALYSIS W/ REFLEX URINE [id number] 11:59:00 Test Item Value Reference Range Interpretation [...] 1584) SOURCE(BEAKER) (test code = 2795) OSMOLALITY, [id number] 11:59:00 Test Item Value Reference Range Interpretation Comments OSMOLALITY URINE (BEAKER) (test 536 mOsm/kg 40-1,400 code = 614) SPECIFIC GRAVITY, [id number] 11:52:00 Test Item Value Reference Range Interpretation Comments SPECIFIC GRAVITY UA (BEAKER) (test code 1.024 1.001-1.035 = 468) TACROLIMUS [id number] 11:08:00 Test Item Value Reference Range Interpretation Comments TACROLIMUS BLOOD (BEAKER) (test 3.9 ng/mL 10.0-20.0 L code = 657) [id number] 09:00:00 Test Item Value Reference Range Interpretation Comments PROCALCITONIN (BEAKER) (test code 64.50 ng/mL <0.05 HH = 3036) SEPSIS RISK (ng/mL)Low: 0.05-0.50Intermediate: 0.51-2.00High: >=2.01RAPID INFLUENZA A&B [id number] 07:45:00 Test Item Value Reference Range Interpretation Comments RAPID INFLUENZA A AG (BEAKER) Negative Negative, Inconclusive (test code = 1622) RAPID INFLUENZA B AG (BEAKER) Negative Negative, Inconclusive (test code = 1623) B-TYPE NATRIURETIC FACTOR (BNP)2019-04-22 07:27:00 Test Item Value Reference Range Interpretation Comments B-TYPE NATRIURETIC PEPTIDE 1132 pg/mL 0-100 H (BEAKER) (test code = 700) TROPONIN [id number] 07:27:00 Test Item Value Reference Range Interpretation [...] acute neurological disease, and persistent tachyarrhythmia.BASIC METABOLIC [id number] 07:21:00 Test Item Value Reference Range Interpretation [...] S NOT APPLICABLE FOR DIALYSIS PATIEN TS. [id number] 07:20:00 Test Item Value Reference Range Interpretation Comments PHOSPHORUS (BEAKER) (test code = 4.7 mg/dL 2.3-4.7 604) [id number] 07:20:00 Test Item Value Reference Range Interpretation Comments MAGNESIUM (BEAKER) (test code = 1.5 mg/dL 1.6-2.6 L 627) HEPATIC FUNCTION [id number] 07:20:00 Test Item Value Reference Range Interpretation [...] (test code = 33 U/L 6-55 347) [id number] 07:13:00 Test Item Value Reference Range Interpretation [...] is 2.5-3.5 for patients wiht mechanical heart valves.PROTHROMBIN [id number] 07:11:00 Test Item Value Reference Range Interpretation [...] is 2.5-3.5 for patients wiht mechanical heart valves.CALCIUM, [id number] 06:59:00 Test Item Value Reference Range Interpretation Comments CALCIUM IONIZED (BEAKER) (test 1.10 mmol/L 1.12-1.27 L code = 698) PH, BLOOD (BEAKER) (test code = 7.32 1810) BLOOD GAS, [id number] 06:58:00 Test Item Value Reference Range Interpretation [...] 1819) 21.0 % RAD, ABDOMEN/KUB, 1 VIEW [id number] 06:48:00Referring: Dr. Diane Fernando for exam:->abdominal painFINAL REPORT CLINICAL HISTORY: Abdominal pain COMPARISON: 12/31/2017 FINDINGS: Two supine views of the abdomen are submitted. The abdominal bowel gas pattern is nonspecific but grossly unobstructed. There is no focus of gas dilated large or small bowel. There is splenomegaly. No abnormal calcification is noted. There is no acute bony abnormality. Signed: Karissa Romero MDReport Verified Date/Time: 04/22/2019 06:48:47 , CHEST, 1 VIEW, NON [id number] 06:46:00Referring: Dr. Diane Fernando for exam:->chest discomfortShould [facility]?->YesFINAL REPORT History: Chest discomfort. Comparison: 01/20/2019 Findings: A single view of the chest is submitted. The examination is limited by low lung volumes and slight rightwardrotation. The cardiac silhouette is prominent in size, and appearance likely magnified by low lung volumes and portable technique. Sternotomy wires are in place. There is central vascular congestion. Diffuse interstitial opacities, including peripheral interlobular septal thickening, suggest pulmonaryedema. Patchy bibasilar airspace opacities may reflect a combination of atelectasis and edema but pneumonitis should be excluded clinically. There is no pneumothorax or acute bony abnormality. Signed: Karissa Romero MDReport Verified Date/Time: 04/22/2019 06:46:48 AND [id number] 12:39:00 Test Item Value Reference Range Interpretation [...] NOT APPLICABLE FOR DIALYSIS PATIEN TS. TISSUE [id number] 12:55:00Surgical Pathology Report Case: [id number] Authorizing Provider: Jordi Serrano, Collected: 02/20/2019 1622 Ordering Location: [facility] Endoscopy Received: 02/23/2019 0843 Services Pathologist: Gemma Samayoa MD Specimens: A) - Polyp, Colon - Cecum, cecum polyp B) - Large Intestine, Colon - Right/Ascending, random right colon biopsy R/O microscopic colitis C) - Polyp, Colon - Right/Ascending, ascending colon polyp x 3 D) - Large Intestine, Colon - Left/Descending, random left colonbiopsy R/O microscopic colitis A. COLON, CECUM POLYP, POLYPECTOMY- POLYPOID MUCOSAL FRAGMENTS WITHOUT ADENOMATOUS OR HYPERPLASTIC CHANGE- FOCAL ACUTE COLITIS, MILDB. COLON, RIGHT/ASCENDING, BIOPSY- NO EVIDENCE OF LYMPHOCYTIC OR COLLAGENOUS COLITIS- CD 138 DOES NOT HIGHLIGHT PLASMA CELLS IN LAMINA PROPRIA (SEE COMMENT)C. COLON, RIGHT/ASCENDING COLON POLYP, POLYPECTOMY- TUBULAR ADENOMA, TWO- ONE POLYPOID MUCOSAL FRAGMENT WITHOUT DIAGNOSTIC ALTERATIOND. COLON, LEFT/DESCENDING, BIOPSY- NO EVIDENCE OF LYMPHOCYTIC OR COLLAGENOUS COLITIS- MILD EDEMA IN LAMINA PROPRIA - CD 138 DOES NOT HIGHLIGHT PLASMA CELLS IN LAMINA PROPRIA IN MAJORITY OF THE FRAGMENTS EXCEPT ONE (SEE COMMENT) Signing Pathologist DirectPhone Line: [phone] signed by Gemma Samayoa MD on 03/03/2019 at 12:55 PMDecreasedto absent plasma cells are seen in the lamina propria consistent with history of common variable immunodeficiency. No features of microscopic colitis, active inflammation or parasites are seen.INTRADEPARTMENTAL CONSULTATION: - Sarah Siegel MD has seen specimen B and D and agrees with the diagnosis.40799 x 4, 71185, 50376Hskxzuu diarrhea, polyp of cecum , H/O lung transplant in 12/2012, Common variable immunodeficiencyA. Cecum polyp. B. Random right colon biopsy, rule out microscopic colitis. C. Ascending colon polyp x3. D. Random left colon biopsy, rule out microscopic colitis.Received in formalin infour parts, all labeled with the patient's name and accession number.Part A. Labeled "polyp, colon-cecum" are two irregular salvador- red soft tissue fragments each measuring 0.3 cm, which are submitted in toto in A1.Part B. Labeled "large intestine, colon-right/ascending" are two irregular salvador soft tissue fragments measuring 0.5 cm and 0.4 cm, which are submitted in toto in B1.Part C. Labeled "polyp, colon-right/ascending" are multiple salvador soft tissue fragments admixed with clotted blood ranging 0.2-0.5 cm, which are submitted in toto in C1.Part D. Labeled "large intestine, colon-left/descending" are multiple salvador soft tissue fragments ranging from 0.2-0.5 cm, which are submitted in toto in D1. CG/ewPerformed.The interpretation of this case included the use of immunohistochemistry or special stains.GSH040- no plasma cells highlighted in lamina propriaD CD138- no plasma cells highlighted in lamina propria , except in one fragmentControl Slides Examined: In-house known positive controls were evaluated along with the test tissue. These control slides run alongside of the patients sample show appropriate staining. Internal positive and negative controls when available are evaluated Immunohistochemistrytechnical testing was performed at [facility], Pathology Laboratory where it was developed and its performance characteristics were determined. It has not been cleared or approvedby the U.S. Food and Drug Administration. The FDA has determined that such clearance or approval is not necessary. The test is used for clinical purposes. It should not be regarded as investigational or for research. This laboratory is certified under the Clinical Laboratory Improvement Amendments of 1988 (CLIA-88) as qualified to perform high complexity clinical laboratory testing.CT, CHEST, WITHOUT [id number] 16:06:00 Referring: Dr. Diane Fernando for Exam:->s/p lung transplant, yearly follow upFINAL REPORT CT scan of the chest. HISTORY: Blunt abdominal trauma, microscopichematuria, lung transplant follow-up. COMPARISON STUDY: Chest x-ray dated November 18, [address] scan of the chest dated March 02, 2016. TECHNIQUE: Contiguous helical slices were acquired through the thorax without the administration of contrast. This exam [...] of the upper abdomen demonstrate a nodular, cirrhotic appearing liver and splenomegaly with the spleen measuring 13.7 cm in AP diameter. Cholelithiasis is seen. Trace ascites is noted. The tracheobronchial tree is clear with no endobronchial lesions. The pulmonary parenchyma demonstrates atelectasis or fibrosis in both lung bases. A 4 mm nodule is seen in the posterior aspect of the left lung apex, likely scarring. Stable minimal nodularity is seen in the right upper lobe, image 16. Bone windows demonstrate degenerative changes. Post sternotomy changes are seen. IMPRESSION:1. Status post bilateral lung transplant. There is 4 mm nodule in the posterior aspect of the left lung apex which is more pronounced on previous. While it likely represent subpleural scarring, it could be followed up in 3-6 months time.2. There is pleural thickening, similar to previous.3. Nodular, cirrhotic liver with splenomegaly and trace ascites. The ascites is new.4. Cholelithiasis. Signed: Georgi Mancilla MDReport Verified Date/Time: 01/20/2019 16:06:56 Reading Location: [address] Body Reading Room CMV PCR, [id number] 13:51:00 Test Item Value Reference Range Interpretation [...] management of antiviral therapy. For treatment of CMV infection due to reactivation in transplant recipients, a threshold between 4,000 and 5,000 copies/mLis suggested. For treatment of primary CMV infection, a lower threshold can be used.CMV infection may also be monitored using weekly serial measurements. Serial measurements of CMV DNA viral load can be evaluated by identifying a 10-fold change, as [...] and its performance characteristics determined by the [facility] Pathol ogy Department, Section of Molecular Pathology. It has not been cleared or approved by the U.S. Foodand Drug Administration (FDA), since FDA approval is not required for clinical use of the test. Validation was done as required by The Clinical Laboratory Improvement Amendments of 1988.TACROLIMUS LEVEL 2019-01-20 12:43:00 Test Item Value Reference Range Interpretation Comments TACROLIMUS BLOOD (BEAKER) (test 10.4 ng/mL 10.0-20.0 code = 657) RAD, CHEST, 2 [id number] 12:28:00Referring: Dr. Diane Eastman Reason for Exam:->s/p lung transplantFINAL REPORT PA and lateral chest, 01/20/2019 COMPARISON: 11/18/2018 The heart, lungs and mediastinum remain within normal limits. Sternal sutures and mediastinal clips are noted. There is persistent minimal blunting of both costophrenic angles consistent with mild thickening or tiny effusions. No significant osseous abnormalities are identified. Signed: Fabio Rowan MDReport Verified Date/Time: 01/20/2019 12:28:25 Reading Location: [facility] Diagnostic Imaging Reading Room - [facility] 1 .310.12 PSA 2019-01-20 12:02:00 Test Item Value Reference Range Interpretation Comments PROSTATE SPECIFIC ANTIGEN (BEAKER) 0.3 ng/mL 0.0-4.0 (test code = 844) MALES onlyVITAMIN D, [id number] 12:02:00 Test Item Value Reference Range Interpretation Comments VITAMIN D 25-OH (BEAKER) (test 23.8 ng/mL 6.6-49.9 code = 2764) Effective 04/10/2017: Reference Range ChangeNew: 6.6-49.9 ng/mL Previous: 13.0- 47.8 ng/mLRecommendedVitamin D Target Range: 30.0-40.0 ng/mLMALES onlyHEMOGLOBIN [id number] 11:40:00 Test Item Value Reference Range Interpretation Comments HEMOGLOBIN A1C (BEAKER) (test code = 4.4 % 4.3-6.1 368) [id number] 10:45:00 Test Item Value Reference Range Interpretation Comments PHOSPHORUS (BEAKER) (test code = 3.5 mg/dL 2.3-4.7 604) [id number] 10:45:00 Test Item Value Reference Range Interpretation Comments MAGNESIUM (BEAKER) (test code = 1.5 mg/dL 1.6-2.6 L 627) COMPREHENSIVE METABOLIC [id number] 10:45:00 Test Item Value Reference Range Interpretation [...] NOT APPLICABLE FOR DIALYSIS PATIEN TS. LIPID [id number] 10:45:00 Test Item Value Reference Range Interpretation Comments TRIGLYCERIDES (BEAKER) (test code = 82 mg/dL 540) CHOLESTEROL (BEAKER) (test code = 117 mg/dL 631) HDL CHOLESTEROL (BEAKER) (test code 39 mg/dL = 976) LDL CHOLESTEROL CALCULATED (BEAKER) 62 mg/dL (test code = 633) Triglyceride Reference Range: Low Risk <150 Borderline 150-199 High Risk 200- 499 Very High Risk >=500Cholesterol Reference Range: Low Risk <200 Borderline 200-239 High Risk >240HDL Cholesterol Reference Range: Low Risk >=60 High Risk <40LDL Cholesterol Reference Range: Optimal <100 Near Optimal 100-129 Borderline 130-159 High 160-189 Very High >=190LACTATE DEHYDROGENASE (LDH)2019-01-20 10:45:00 Test Item Value Reference Range Interpretation Comments LACTATE DEHYDROGENASE (BEAKER) (test 205 U/L 125-220 code = 635) CBC W/PLT COUNT & AUTO [id number] 09:48:00 Test Item Value Reference Range Interpretation [...] code = 2801) SPUTUM CULTURE + GRAM [id number] 23:12:00 Test Item Value Reference Range Interpretation Comments CULTURE (BEAKER) Oropharyngeal (test code = 1095) contamination, specimen rejected. Recollect requested. GRAM STAIN RESULT <1+ WBCs (BEAKER) (test code = 1123) GRAM STAIN RESULT 10-15 epithelial cells (BEAKER) (test code = 63031) GRAM STAIN RESULT <1+ gram negative rods (BEAKER) (test code = 30851) GRAM STAIN RESULT 3+ gram positive cocci in (BEAKER) (test code pairs and clusters = 198950) TACROLIMUS [id number] 11:06:00 Test Item Value Reference Range Interpretation Comments TACROLIMUS BLOOD (BEAKER) (test 9.7 ng/mL 10.0-20.0 L code = 657) [id number] 09:20:00 Test Item Value Reference Range Interpretation Comments MAGNESIUM (BEAKER) (test code = 1.7 mg/dL 1.6-2.6 627) COMPREHENSIVE METABOLIC [id number] 09:20:00 Test Item Value Reference Range Interpretation [...] PATIEN TS. CBC W/PLT COUNT & AUTO [id number] 09:01:00 Test Item Value Reference Range Interpretation [...] (BEAKER) (test code = 2801) CMV PCR, [id number] 15:10:00 Test Item Value Reference Range Interpretation [...] management of antiviral therapy. For treatment of CMV infection due to reactivation in transplant recipients, a threshold between 4,000 and 5,000 copies/mLis suggested. For treatment of primary CMV infection, a lower threshold can be used.CMV infection may also be monitored using weekly serial measurements. Serial measurements of CMV DNA viral load can be evaluated by identifying a 10-fold change, as [...] and its performance characteristics determined by the [facility] Pathol ogy Department, Section of Molecular Pathology. It has not been cleared or approved by the U.S. Foodand Drug Administration (FDA), since FDA approval is not required for clinical use of the test. Validation was done as required by The Clinical Laboratory Improvement Amendments of 1988.[facility]EL [facility] 2018-11-18 16:22:00 Test Item Value Reference [...] decisions. This sample was tested at the [facility] using the [employer] FilmArray Respiratory Panel. It is FDA cleared and has been verified and approved by the [facility] for clinical use on nasopharyngeal swab specimens.The performance of the FilmArrayRP has not been established in individuals who received influenza vaccine. Recent administration of a nasal influenza vaccine may cause false positive results for Influenza A and/orInfluenza B.HEMOGLOBIN [id number] 12:52:00 Test Item Value Reference Range Interpretation Comments HEMOGLOBIN A1C (BEAKER) (test code = 4.9 % 4.3-6.1 368) TACROLIMUS [id number] 12:24:00 Test Item Value Reference Range Interpretation Comments TACROLIMUS BLOOD (BEAKER) (test 2.8 ng/mL 10.0-20.0 L code = 657) [id number] 11:47:00 Test Item Value Reference Range Interpretation Comments PHOSPHORUS (BEAKER) (test code = 3.2 mg/dL 2.3-4.7 604) [id number] 11:47:00 Test Item Value Reference Range Interpretation Comments MAGNESIUM (BEAKER) (test code = 1.6 mg/dL 1.6-2.6 627) COMPREHENSIVE METABOLIC [id number] 11:47:00 Test Item Value Reference Range Interpretation [...] NOT APPLICABLE FOR DIALYSIS PATIEN TS. LIPID [id number] 11:47:00 Test Item Value Reference Range Interpretation Comments TRIGLYCERIDES (BEAKER) (test code = 94 mg/dL 540) CHOLESTEROL (BEAKER) (test code = 135 mg/dL 631) HDL CHOLESTEROL (BEAKER) (test code 41 mg/dL = 976) LDL CHOLESTEROL CALCULATED (BEAKER) 75 mg/dL (test code = 633) Triglyceride Reference Range: Low Risk <150 Borderline 150-199 High Risk 200- 499 Very High Risk >=500Cholesterol Reference Range: Low Risk <200 Borderline 200-239 High Risk >240HDL Cholesterol Reference Range: Low Risk >=60 High Risk <40LDL Cholesterol Reference Range: Optimal <100 Near Optimal 100-129 Borderline 130-159 High 160-189 Very High >=190LACTATE DEHYDROGENASE (LDH)2018-11-18 11:47:00 Test Item Value Reference Range Interpretation Comments LACTATE DEHYDROGENASE (BEAKER) (test 194 U/L 125-220 code = 635) CBC W/PLT COUNT & AUTO [id number] 11:19:00 Test Item Value Reference Range Interpretation [...] 0-1 H PERCENT (BEAKER) (test code = 2800) RAD, CHEST, 2 [id number] 10:04:00Reason for Exam:->s/p lung transplant FINAL REPORT Chest, 2 views. Clinical History: s/p lung transplant Comparison Study: August 05, 2018 Findings: The heart and lungs are within normal limits. Sternotomy wires are seen. Blunting of the right costophrenic angle is seen. No significant bony or soft tissue abnormalities are seen. Impression: No significant change. Signed: Georgi Mancilla MDReport Verified Date/Time: 11/18/2018 10:04:14 Reading Location: [address] Radiology Reading Room [id number] 13:40:00 Test Item Value Reference Range Interpretation Comments BLOOD UREA NITROGEN (BEAKER) (test 22 mg/dL 7-21 H code = 354) [id number] 13:40:00 Test Item Value Reference Range Interpretation Comments CREATININE (BEAKER) 1.03 mg/dL 0.57-1.25 (test code = 358) EGFR (BEAKER) (test 73 mL/min/1.73 ESTIMA ABDULLAHI GFR IS code = 1092) sq m NOT ACCURATE CREATININE CLEARANCE IN PREDICTING GLOMERULAR FILTRATION RATE . ESTIMATED GFR I S NOT APPLICABLE FOR DIALYSIS PATIEN TS. GIARDIA [id number] 15:23:00 Test Item Value Reference Range Interpretation Comments GIARDIA ANTIGEN Not detected Not detected NOTE: Due t o (QUEST) (test code intermitt ent shedding, = 1871299) one negative sa mple does not necess arily rule out the pr esence of a parasitic infection. Performing Lab *[facility], [address] [place] [id number] Sumi Davila MD, PhDOVA AND PARASITE EXAMINATION 2018-08-22 07:46:00 Test Item Value Reference Range Interpretation [...] (test seen seen code = 248) U/S, [id number] 15:43:00Reason for Exam:->abdl distentionReason for Exam:->s/p lung transplantFINAL REPORT Ultrasound guided paracentesis Clinical History: Ascites Local Anesthesia: 5 cc of 1% lidocaine Technique: Informed consent is obtained. The risks of pain, bleeding, infection, [...] with color Doppler to exclude presence of bloodvessels traversing the area, the skin is prepped and draped in the usual sterile manner. After localanesthesia is achieved, a 5 Bermudian catheter is advanced into the peritoneal cavity. Approximately 1300 cc of serosanguineous fluid is drained, without immediate complications. Fluid is sent for analysis. Patient Disposition: The patient is discharged from the ultrasound department after the paracentesis, in good condition. Impression: Successful and uncomplicated ultrasound guided paracentesis is performed. Signed: Judy Perryort Verified Date/Time: 08/19/2018 15:43:52 Reading Location: [address] Ultrasound Reading Room RESPIRATORY PANEL [id number] 13:59:00 Test Item Value Reference Range Interpretation [...] decisions. This sample was tested at the [facility] using the [employer] FilmArray Respiratory Panel. It is FDA cleared and has been verified and approved by the [facility] for clinical use on nasal swab specimens. It is not FDA-cleared for use on bronchial wash/lavage samples. However, for this sample type, validation was performed and test characteristics were determined and approved, by [facility] laboratory for clinical use under the Clinical Laboratory Improvement Amendments (CLIA) of 1988 requirements. Therefore, FDA clearance isnot required. This laboratory is CLIA-certified and [employer] (CAP)-accredited to perform high complexity testing.TACROLIMUS [id number] 13:46:00 Test Item Value Reference Range Interpretation Comments TACROLIMUS BLOOD (BEAKER) (test 5.5 ng/mL 10.0-20.0 L code = 657) PROTHROMBIN [id number] 13:05:00 Test Item Value Reference Range Interpretation Comments PROTIME (BEAKER) (test code = 14.6 seconds 11.7-14.7 759) INR (BEAKER) (test code = 370) 1.1 <=5.9 RECOMMENDED COUMADIN/WARFARIN INR THERAPY RANGESSTANDARD DOSE: 2.0 - 3.0 Includes: PROPHYLAXIS for venous thrombosis, systemic embolization; TREATMENT for venous thrombosis and/or pulmonary embolus.HIGH RISK: Target INR is 2.5-3.5 for patients with mechanical heart valves.RAPID STREP A [id number] 11:41:00 Test Item Value Reference Range Interpretation Comments STREP A ANTIGEN (BEAKER) (test code Negative Negative = 556) [id number] 11:10:00 Test Item Value Reference Range Interpretation Comments MAGNESIUM (BEAKER) (test code = 1.4 mg/dL 1.6-2.6 L 627) BASIC METABOLIC [id number] 11:10:00 Test Item Value Reference Range Interpretation [...] PATIEN TS. CBC W/PLT COUNT & AUTO [id number] 10:55:00 Test Item Value Reference Range Interpretation [...] (BEAKER) (test code = 2801) BUN AND [id number] 15:09:00 Test Item Value Reference Range Interpretation [...] DIALYSIS PATIEN TS. STOOL CULTURE + SHIGA [id number] 12:11:00 Test Item Value Reference Range Interpretation Comments CULTURE (BEAKER) No Salmonella, Shigella (test code = 1095) or Campylobacter isolated SHIGA TOXIN [id number] 16:28:00 Test Item Value Reference Range Interpretation Comments SHIGA TOXIN 1 (BEAKER) (test Not detected Not detected code = 2177) SHIGA TOXIN 2 (BEAKER) (test Not detected Not detected code = 2179) STOOL PATH [id number] 12:11:00 Test Item Value Reference Range Interpretation Comments PATHOGEN EXAM CHARGED (BEAKER) (test Done code = 2381) C. DIFFICILE GDH [id number] 16:18:00 Test Item Value Reference Range Interpretation Comments CDT TOXIN (test code Negative Negative = [id number]) CDT GDH ANTIGEN (test Negative Negative No ind ication of code = 2888625221) Clostridi um difficile infection and n o colonization. Discontinue ent phyllis isolation and t herapy. Testing performed by [employer] Rapid Cassette Assay. For GDH, published sensitivity of the assay is 98.7% compared to cytotoxicity testing. For Toxin AB, published sensitivity is 87.8% and specificity 99.4% compared to cytotoxicity testing.Verification of kit performance was done by the [facility] prior to clinical use.FECAL [id number] 14:50:00 Test Item Value Reference Range Interpretation Comments FECAL LEUKOCYTES No fecal leukocytes No fecal leukocytes (BEAKER) (test code = seen seen 992) CMV PCR, [id number] 14:34:00 Test Item Value Reference Range Interpretation [...] management of antiviral therapy. For treatment of CMV infection due to reactivation in transplant recipients, a threshold between 4,000 and 5,000 copies/mLis suggested. For treatment of primary CMV infection, a lower threshold can be used.CMV infection may also be monitored using weekly serial measurements. Serial measurements of CMV DNA viral load can be evaluated by identifying a 10-fold change, as [...] and its performance characteristics determined by the [facility] Pathol ogy Department, Section of Molecular Pathology. It has not been cleared or approved by the U.S. Foodand Drug Administration (FDA), since FDA approval is not required for clinical use of the test. Validation was done as required by The Clinical Laboratory Improvement Amendments of 1988.TACROLIMUS LEVEL 2018-08-05 12:06:00 Test Item Value Reference Range Interpretation Comments TACROLIMUS BLOOD (BEAKER) (test 4.8 ng/mL 10.0-20.0 L code = 657) [id number] 08:47:00 Test Item Value Reference Range Interpretation Comments PHOSPHORUS (BEAKER) (test code = 2.1 mg/dL 2.3-4.7 L 604) [id number] 08:47:00 Test Item Value Reference Range Interpretation Comments MAGNESIUM (BEAKER) (test code = 1.7 mg/dL 1.6-2.6 627) COMPREHENSIVE METABOLIC [id number] 08:47:00 Test Item Value Reference Range Interpretation [...] 125-220 code = 635) RAD, CHEST, 2 [id number] 08:33:00Reason for Exam:->s/p lung transplant FINAL REPORT CHEST, AP AND LATERAL. HISTORY: Status post lung transplant. COMPARISON: 05/29/2018. FINDINGS/IMPRESSION: There are post surgical changes from prior median sternotomy.The trachea is midline. There are suspected trace bilateral pleural effusions and bibasilar opacities suggestive of atelectasis. There is no evidence for large focal consolidation or pneumothorax. The cardiomediastinal silhouette is stable in appearance. No acute osseous abnormalities identified. The soft tissues are unremarkable. Signed: Javed Paezeport Verified Date/Time: 08/05/2018 08:33:35Reading Location: [facility] Radiology Reading Room Electronically signed by: John CORONA 08/05/2018 08:33 AMCBC W/PLT COUNT & AUTO [id number] 08:23:00 Test Item Value Reference Range Interpretation [...] (test code = 2801) AFB CULTURE + [id number] 12:42:00 Test Item Value Reference Range Interpretation Comments CULTURE (BEAKER) (test No acid-fast bacilli code = 1095) isolated in 42 days AFB SMEAR (BEAKER) No acid fast bacilli (test code = 994) seen TACROLIMUS [id number] 11:26:00 Test Item Value Reference Range Interpretation Comments TACROLIMUS BLOOD (BEAKER) (test 5.6 ng/mL 10.0-20.0 L code = 657) CBC W/PLT COUNT & AUTO [id number] 08:07:00 Test Item Value Reference Range Interpretation [...] 0-1 PERCENT (BEAKER) (test code = 2801) [id number] 07:54:00 Test Item Value Reference Range Interpretation Comments MAGNESIUM (BEAKER) (test code = 1.7 mg/dL 1.6-2.6 627) BASIC METABOLIC [id number] 07:54:00 Test Item Value Reference Range Interpretation [...] FOR DIALYSIS PATIEN TS. FUNGUS CULTURE + [id number] 13:47:00 Test Item Value Reference Range Interpretation Comments CULTURE (BEAKER) A <1+ Jane (test code = 1095) luz elenarichellevanessa sis FUNGUS SMEAR No fungi seen (BEAKER) (test code = 1406) TACROLIMUS [id number] 12:34:00 Test Item Value Reference Range Interpretation Comments TACROLIMUS BLOOD (BEAKER) (test 3.3 ng/mL 10.0-20.0 L code = 657) RAD, BONE DENSITY [id number] 12:09:00Reason for Exam:->adjunct faculty for medical terminology use of prednisoneReason for Exam:->s/p lung transplantFINAL [...] total bone mineral density is 0.887 gm/cm2, theT-score is -2.9, and the Z-score is -1.7. Signed: Damari Ocampo [facility] Verified Date/Time: 06/05/2018 12:09:02 Reading Location: [facility] Reading Room IMMUNOGLOBULIN A (IGA)2018-06-05 [...] < mg/dL 540-1,822 L code = 427) [id number] 11:15:00 Test Item Value Reference Range Interpretation Comments MAGNESIUM (BEAKER) (test code = 1.6 mg/dL 1.6-2.6 627) BASIC METABOLIC [id number] 11:15:00 Test Item Value Reference Range Interpretation [...] PATIEN TS. CBC W/PLT COUNT & AUTO [id number] 11:12:00 Test Item Value Reference Range Interpretation [...] code = 2801) SPUTUM CULTURE + GRAM [id number] 19:04:00 Test Item Value Reference Range Interpretation Comments CULTURE (BEAKER) 4+ Normal respiratory (test code = 1095) tre present GRAM STAIN RESULT 1+ WBCs (BEAKER) (test code = 1123) GRAM STAIN RESULT 0-5 epithelial cells (BEAKER) (test code = 96149) GRAM STAIN RESULT 1+ gram negative rods (BEAKER) (test code = 53244) GRAM STAIN RESULT 3+ gram positive rods (BEAKER) (test code = 406870) SPIN/CONCENTRATION [id number] 00:19:00 Test Item Value Reference Range Interpretation Comments CONCENTRATION CHARGED (BEAKER) (test Done code = 2657) CMV PCR, [id number] 14:39:00 Test Item Value Reference Range Interpretation [...] management of antiviral therapy. For treatment of CMV infection due to reactivation in transplant recipients, a threshold between 4,000 and 5,000 copies/mLis suggested. For treatment of primary CMV infection, a lower threshold can be used.CMV infection may also be monitored using weekly serial measurements. Serial measurements of CMV DNA viral load can be evaluated by identifying a 10-fold change, as [...] and its performance characteristics determined by the [facility] Pathol ogy Department, Section of Molecular Pathology. It has not been cleared or approved by the U.S. Foodand Drug Administration (FDA), since FDA approval is not required for clinical use of the test. Validation was done as required by The Clinical Laboratory Improvement Amendments of 1988.TACROLIMUS LEVEL 2018-05-29 14:31:00 Test Item Value Reference Range Interpretation Comments TACROLIMUS BLOOD (BEAKER) (test 13.0 ng/mL 10.0-20.0 code = 657) RESPIRATORY PANEL [id number] 12:51:00 Test Item Value Reference Range Interpretation Comments HUMAN METAPNEUMOVIRUS Not detected Not detected, (BEAKER) (test code = Equivocal 4023) RHINOVIRUS (BEAKER) Detected Not detected, A Assay i s not able (test code = 3446) Equivocal different iate between Human Rhinovirus and [...] decisions. This sample was tested at the [facility] using the [employer] Respiratory Panel. It is FDA cleared and has been verified and approved by the [facility] for clinical use on nasal swab specimens. It is not FDA-cleared for use on bronchial wash/lavage samples. However, for this sample type, validation was performed and test characteristics were determined and approved, by [facility] laboratory for clinical use under the Clinical Laboratory Improvement Amendments (CLIA) of 1988 requirements. Therefore, FDA clearance isnot required. This laboratory is CLIA-certified and [employer] (CAP)-accredited to perform high complexity testing.HEMOGLOBIN [id number] 10:37:00 Test Item Value Reference Range Interpretation Comments HEMOGLOBIN A1C (BEAKER) (test code = 4.5 % 4.3-6.1 368) CREATININE, RANDOM [id number] 09:55:00 Test Item Value Reference Range Interpretation Comments CREATININE URINE (BEAKER) (test 195.0 mg/dL code = 375) Reference Range: No NormalsPROTEIN, RANDOM [id number] 09:55:00 Test Item Value Reference Range Interpretation Comments PROTEIN, URINE (BEAKER) (test code = 18 mg/dL 0-14 H 1569) MICROALBUMIN, RANDOM [id number] 09:55:00 Test Item Value Reference Range Interpretation Comments MICROALBUMIN URINE (BEAKER) (test 1.5 mg/dL code = 1794) Reference Range: No NormalsRAD, CHEST, 2 [id number] 09:22:00Reason for Exam:->s/p lung transplantFINAL REPORT INDICATION: s/p lung transplant COMPARISON: February 05, 2018 TECHNIQUE: Frontal and lateral views of the chest. FINDINGS: Lungs and pleura: Clear lungs. Small posterior fusions bilaterally.Heart and mediastinum: Normal heart size. Stable surgical changes.Osseous structures: No acute abnormality.Additional findings: None. IMPRESSION: No acute intrathoracic abnormality.Signed: JR Rizzo Robert MDReport Verified Date/Time: 05/29/2018 09:22:59 Reading Location: [facility] Radiology Reading Room [id number] 09:10:00 Test Item Value Reference Range Interpretation Comments PROSTATE SPECIFIC ANTIGEN (BEAKER) 0.4 ng/mL 0.0-4.0 (test code = 844) MALES onlyHEPATITIS PANEL, [id number] 09:10:00 Test Item Value Reference Range Interpretation Comments HEPATITIS A IGM ANTIBODY (BEAKER) Nonreactive Nonreactive (test code = 498) HEPATITIS B CORE IGM ANTIBODY Nonreactive Nonreactive (BEAKER) (test code = 645) HEPATITIS C ANTIBODY (BEAKER) Nonreactive Nonreactive (test code = 367) HEPATITIS B SURFACE ANTIGEN (2) Nonreactive Nonreactive (BEAKER) (test code = 2585) MALES onlyVITAMIN D, [id number] 09:10:00 Test Item Value Reference Range Interpretation Comments VITAMIN D 25-OH (BEAKER) (test 26.8 ng/mL 6.6-49.9 code = 2764) Effective 04/10/2017: Reference Range ChangeNew: 6.6-49.9 ng/mL Previous: 13.0- 47.8 ng/mLRecommendedVitamin D Target Range: 30.0-40.0 ng/mLMALES onlyHIV-1 ANTIGEN WITH HIV-1/2 [id number] 09:10:00 Test Item Value Reference Range Interpretation Comments HIV-1 ANTIGEN WITH HIV 1\\T\\2 Nonreactive Nonreactive ANTIBODY (2) (BEAKER) (test code = 2586) MALES [id number] 08:48:00 Test Item Value Reference Range Interpretation Comments PHOSPHORUS (BEAKER) (test code = 3.2 mg/dL 2.3-4.7 604) COMPREHENSIVE METABOLIC [id number] 08:48:00 Test Item Value Reference Range Interpretation [...] S NOT APPLICABLE FOR DIALYSIS PATIIRIS TS. LIPID [id number] 08:48:00 Test Item Value Reference Range Interpretation Comments TRIGLYCERIDES (BEAKER) (test code = 61 mg/dL 540) CHOLESTEROL (BEAKER) (test code = 119 mg/dL 631) HDL CHOLESTEROL (BEAKER) (test code 37 mg/dL = 976) LDL CHOLESTEROL CALCULATED (BEAKER) 70 mg/dL (test code = 633) Triglyceride Reference Range: Low Risk <150 Borderline 150-199 High Risk 200- 499 Very High Risk >=500Cholesterol Reference Range: Low Risk <200 Borderline 200-239 High Risk >240HDL Cholesterol Reference Range: Low Risk >=60 High Risk <40LDL Cholesterol Reference Range: Optimal <100 Near Optimal 100-129 Borderline 130-159 High 160-189 Very High >=190LACTATE DEHYDROGENASE (LDH)2018-05-29 08:48:00 Test Item Value Reference Range Interpretation Comments LACTATE DEHYDROGENASE (BEAKER) (test 200 U/L 125-220 code = 635) CBC W/PLT COUNT & AUTO [id number] 08:30:00 Test Item Value Reference Range Interpretation [...] (test code = 2801) AFB CULTURE + [id number] 17:58:00 Test Item Value Reference Range Interpretation Comments CULTURE (BEAKER) (test No acid-fast bacilli code = 1095) isolated in 42 days AFB SMEAR (BEAKER) No acid fast bacilli (test code = 994) seen BODY FLUID CULTURE + GRAM [id number] 18:20:00 Test Item Value Reference Range Interpretation Comments CULTURE (BEAKER) (test code No growth = 1095) GRAM STAIN RESULT (BEAKER) <1+ WBCs (test code = 1123) GRAM STAIN RESULT (BEAKER) No organisms seen (test code = 47546) CBC W/PLT COUNT & AUTO [id number] 11:48:00 Test Item Value Reference Range Interpretation [...] 3438) Received comment: User comments: Slide comments:TACROLIMUS [id number] 09:58:00 Test Item Value Reference Range Interpretation Comments TACROLIMUS BLOOD (BEAKER) (test 5.3 ng/mL 10.0-20.0 L code = 657) POCT-GLUCOSE [id number] 08:33:00 Test Item Value Reference Range Interpretation Comments POC-GLUCOSE METER 100 mg/dL 70-110 TESTED AT [facility] 6720 (BEAKER) (test code = PARESH Garcia BAILEY WHITNEY 1538) [address] [id number] 07:13:00 Test Item Value Reference Range Interpretation Comments MAGNESIUM (BEAKER) (test code = 1.6 mg/dL 1.6-2.6 627) COMPREHENSIVE METABOLIC [id number] 07:13:00 Test Item Value Reference Range Interpretation [...] PATIEN TS. BODY FLUID CELL COUNT WITH [id number] 17:27:00 Test Item Value Reference Range Interpretation [...] Tube (test code = 2873) PROTEIN, BODY [id number] 17:03:00 Test Item Value Reference Range Interpretation Comments PROTEIN FLUID (BEAKER) (test code = 1.2 g/dL 579) Absence of reference range indicates that normals have not been defined.Assay performance has not been validated for this type of specimen.ascitesascites GLUCOSE, BODY [id number] 17:03:00 Test Item Value Reference Range Interpretation Comments GLUCOSE, BODY FLUID (BEAKER) (test 92 mg/dL code = 1528) Absence of reference range indicates that normals have not been defined.Assay performance has not been validated for this type of specimen.ascitesascites TACROLIMUS [id number] 15:07:00 Test Item Value Reference Range Interpretation Comments TACROLIMUS BLOOD (BEAKER) (test 7.7 ng/mL 10.0-20.0 L code = 657) VITAMIN B12 AND [id number] 14:40:00 Test Item Value Reference Range Interpretation Comments VITAMIN B12 (BEAKER) (test code = 714 pg/mL 213-816 774) FOLATE (BEAKER) (test code = 362) 13.4 ng/mL >=7.0 IMMUNOGLOBULIN G (IGG)2018-02-05 14:19:00 Test Item Value Reference Range Interpretation Comments IMMUNOGLOBULIN G (IGG) (BEAKER) 133 mg/dL 540-1822 L (test code = 427) POCT-GLUCOSE [id number] 13:31:00 Test Item Value Reference Range Interpretation Comments POC-GLUCOSE METER 149 mg/dL 70-110 H TESTED AT [facility] 6720 (BEAKER) (test code = JACQUELINEIRINEO WHITNEY 1538) [address] U/S, [id number] 11:08:00Reason for exam:->ABDOMINAL PAINFINAL REPORT HISTORY : Ascites Comment : The procedure, including the risks andcomplications of the procedure, were explained to the patient and the patient consented. A pocket offluid was identified in the right lower quadrant of the abdomen. This area was marked. The area was prepped and draped in the usual sterile fashion. 1% lidocaine was applied to the skin and deep soft tissues. A 5 [place] multi-sidehole catheter was inserted and removed from the peritoneal space and approximately 3.1 liters of clear yellow fluid was aspirated from the abdomen. Specimens were collected for the lab. There were no immediate complications. Impression: Successful ultrasound guided paracentesis with aspiration of 3.1 liters of fluid. Signed: Javed Paez MDReport Verified Date/Time: 02/05/2018 11:08:13 Reading Location: [facility] P006J Ultrasound Reading Room CBC W/PLT COUNT & AUTO [id number] 09:16:00 Test Item Value Reference Range Interpretation [...] PERCENT (BEAKER) (test code = 2801) TROPONIN [id number] 09:11:00 Test Item Value Reference Range Interpretation [...] pg/mL 0-100 H (test code = 700) [id number] 09:04:00 Test Item Value Reference Range Interpretation Comments MAGNESIUM (BEAKER) (test code = 1.7 mg/dL 1.6-2.6 627) BASIC METABOLIC [id number] 09:04:00 Test Item Value Reference Range Interpretation [...] APPLICABLE FOR DIALYSIS PATIEN TS. HEPATIC FUNCTION [id number] 09:04:00 Test Item Value Reference Range Interpretation [...] (test code = 38 U/L 6-55 347) [id number] 09:04:00 Test Item Value Reference Range Interpretation Comments AMYLASE (BEAKER) (test code = 349) 79 U/L 25-125 [id number] 09:04:00 Test Item Value Reference Range Interpretation Comments LIPASE (BEAKER) (test code = 749) 36 U/L 8-78 [id number] 08:54:00 Test Item Value Reference Range Interpretation Comments PROTIME (BEAKER) (test code = 16.7 seconds 11.7-14.7 H 759) INR (BEAKER) (test code = 370) 1.4 <=5.9 PARTIAL THROMBOPLASTIN TIME 34.6 seconds 22.5-36.0 (BEAKER) (test code = 760) RECOMMENDED COUMADIN/WARFARIN INR THERAPY RANGESSTANDARD DOSE: 2.0 - 3.0 Includes: PROPHYLAXIS for venous thrombosis, systemic embolization; TREATMENT for venous thrombosis and/or pulmonary embolus.HIGH RISK: Target INR is 2.5-3.5 for patients with mechanical heart valves.RAD, CHEST, 1 VIEW, NON [id number] 07:45:00Reason for exam:->chest painFINAL REPORT Chest one view AP 02/05/2018 7:45 AM CLINICAL INDICATION: chest painCOMPARISON: 01/13/2018 IMPRESSION: There are trace bilateral pleural effusions with adjacent basilar atelectasis. Cardiomediastinal contours are within normal limits. The central pulmonary vasculature is not engorged. Sternotomy wires remain midline. Signed: Bryce Craven Verified Date/Time:02/05/2018 07:45:26 Reading Location: [address] Neuro Reading Room FUNGUS CULTURE + [id number] 12:31:00 Test Item Value Reference Range Interpretation Comments CULTURE (BEAKER) (test No fungus isolated in code = 1095) 28 days FUNGUS SMEAR (BEAKER) No fungi seen (test code = 1406) VIRUS [id number] 12:15:00 Test Item Value Reference Range Interpretation Comments CULTURE (BEAKER) (test code No virus isolated = 1095) CMV PCR, [id number] 14:49:00 Test Item Value Reference Range Interpretation [...] management of antiviral therapy. For treatment of CMV infection due to reactivation in transplant recipients, a threshold between 4,000 and 5,000 copies/mLis suggested. For treatment of primary CMV infection, a lower threshold can be used.CMV infection may also be monitored using weekly serial measurements. Serial measurements of CMV DNA viral load can be evaluated by identifying a 10-fold change, as [...] and its performance characteristics determined by the [facility] Pathol ogy Department, Section of Molecular Pathology. It has not been cleared or approved by the U.S. Foodand Drug Administration (FDA), since FDA approval is not required for clinical use of the test. Validation was done as required by The Clinical Laboratory Improvement Amendments of 1988.TACROLIMUS LEVEL 2018-01-13 12:09:00 Test Item Value Reference Range Interpretation Comments TACROLIMUS BLOOD (KATELYNN) (test 3.9 ng/mL 10.0-20.0 L code = 657) POCT-GLUCOSE [id number] 11:51:00 Test Item Value Reference Range Interpretation Comments POC-GLUCOSE METER 121 mg/dL 70-110 H TESTED AT [facility] 6720 ([facility]) (test code = JACQUELINEIRINEO Garcia [facility] 1538) [address] RAD, CHEST, 1 VIEW, NON [id number] 08:39:00Reason for exam:->Follow-up respiratory failureShould this be performed at the bedside?->YesFINAL REPORT Chest one view compared to January 07, 2018 Discussion: Moderately improved bilateral airspace opacities. Right PICC line in place. No gross effusion or pneumothorax. Signed: Denilson Callejas Verified Date/Time: 01/13/2018 08:39:15 Reading Location: [facility] Radiology Reading Room TIC FUNCTION [id number] 07:13:00 Test Item Value Reference Range Interpretation [...] = 55 U/L 6-55 347) BASIC METABOLIC [id number] 07:13:00 Test Item Value Reference Range Interpretation [...] S NOT APPLICABLE FOR DIALYSIS PATIEN TS. [id number] 06:52:00 Test Item Value Reference Range Interpretation Comments PROTIME (BEAKER) (test code = 17.3 seconds 11.7-14.7 H 759) INR (BEAKER) (test code = 370) 1.4 <=5.9 PARTIAL THROMBOPLASTIN TIME 33.4 seconds 22.5-36.0 (BEAKER) (test code = 760) RECOMMENDED COUMADIN/WARFARIN INR THERAPY RANGESSTANDARD DOSE: 2.0 - 3.0 Includes: PROPHYLAXIS for venous thrombosis, systemic embolization; TREATMENT for venous thrombosis and/or pulmonary embolus.HIGH RISK: Target INR is 2.5-3.5 for patients with mechanical heart valves.CBC W/PLT COUNT & AUTO [id number] 06:45:00 Test Item Value Reference Range Interpretation [...] PERCENT (BEAKER) (test code = 2801) POCT-GLUCOSE [id number] 22:11:00 Test Item Value Reference Range Interpretation Comments POC-GLUCOSE METER 165 mg/dL 70-110 H TESTED AT [facility] 6720 ([facility]) (test code = PARESH [place] 1538) [address] C. DIFFICILE GDH [id number] 16:06:00 Test Item Value Reference Range Interpretation Comments CDT TOXIN (test code Negative Negative = [id number]) CDT GDH ANTIGEN (test Negative Negative No ind ication of code = [id number]) Clostridi um difficile infection and n o colonization. Discontinue ent phyllis isolation and t herapy. Testing performed by [employer] Rapid Cassette Assay. For GDH, published sensitivity of the assay is 98.7% compared to cytotoxicity testing. For Toxin AB, published sensitivity is 87.8% and specificity 99.4% compared to cytotoxicity testing.Verification of kit performance was done by the [facility] MicrobiologyLab prior to clinical use.TACROLIMUS [id number] 10:30:00 Test Item Value Reference Range Interpretation Comments TACROLIMUS BLOOD (BEAKER) (test 2.7 ng/mL 10.0-20.0 L code = 657) [id number] 07:37:00 Test Item Value Reference Range Interpretation Comments PHOSPHORUS (BEAKER) (test code = 4.1 mg/dL 2.3-4.7 604) BASIC METABOLIC [id number] 07:37:00 Test Item Value Reference Range Interpretation [...] NOT APPLICABLE FOR DIALYSIS PATIEN TS. POCT-GLUCOSE [id number] 07:30:00 Test Item Value Reference Range Interpretation Comments POC-GLUCOSE METER 103 mg/dL 70-110 TESTED AT [facility] 6720 ([facility]) (test code = PARESH [place] 1538) [address] CBC W/PLT COUNT & AUTO [id number] 07:16:00 Test Item Value Reference Range Interpretation [...] PERCENT (BEAKER) (test code = 2801) POCT-GLUCOSE [id number] 21:04:00 Test Item Value Reference Range Interpretation Comments POC-GLUCOSE METER 161 mg/dL 70-110 H TESTED AT [facility] 6720 (BEAKER) (test code = PARESH Garcia [facility] 1538) [address] TACROLIMUS [id number] 10:37:00 Test Item Value Reference Range Interpretation Comments TACROLIMUS BLOOD (BEAKER) (test 3.4 ng/mL 10.0-20.0 L code = 657) [id number] 07:21:00 Test Item Value Reference Range Interpretation Comments PHOSPHORUS (BEAKER) (test code = 5.3 mg/dL 2.3-4.7 H 604) BASIC METABOLIC [id number] 07:21:00 Test Item Value Reference Range Interpretation [...] PATIEN TS. CBC W/PLT COUNT & AUTO [id number] 07:03:00 Test Item Value Reference Range Interpretation [...] PERCENT (BEAKER) (test code = 2801) POCT-GLUCOSE [id number] 17:24:00 Test Item Value Reference Range Interpretation Comments POC-GLUCOSE METER 178 mg/dL 70-110 H TESTED AT [place] [address] ([facility]) (test code = [facility] 1538) [address] TACROLIMUS [id number] 12:24:00 Test Item Value Reference Range Interpretation Comments TACROLIMUS BLOOD (AKER) (test 4.3 ng/mL 10.0-20.0 L code = 657) POCT-GLUCOSE [id number] 09:17:00 Test Item Value Reference Range Interpretation Comments POC-GLUCOSE METER 162 mg/dL 70-110 H TESTED AT [place] [address] ([facility]) (test code = [facility] 1538) [address] CBC W/PLT COUNT & AUTO [id number] 07:36:00 Test Item Value Reference Range Interpretation [...] (BEAKER) (test code = 2801) BASIC METABOLIC [id number] 06:41:00 Test Item Value Reference Range Interpretation [...] = 358) GLUCOSE RANDOM 104 mg/dL 70-105 (AKER) (test code = 652) CALCIUM (BEAKER) 7.5 mg/dL 8.4-10.2 L (test code = 697) EGFR (BEAKER) (test 32 mL/min/1.73 ESTIMA ABDULLAHI GFR IS code = 1092) sq m NOT ACCURATE CREATININE CLEARANCE IN PREDICTING GLOMERULAR FILTRATION RATE . ESTIMATED GFR I S NOT APPLICABLE FOR DIALYSIS PATIEN TS. [id number] 06:39:00 Test Item Value Reference Range Interpretation Comments PHOSPHORUS ([facility]) (test code = 6.1 mg/dL 2.3-4.7 H 604) LEGIONELLA [id number] 04:55:00 Test Item Value Reference Range Interpretation Comments CULTURE ([facility]) No Legionella species (test code = 1095) isolated POCT-GLUCOSE [id number] 21:37:00 Test Item Value Reference Range Interpretation Comments POC-GLUCOSE METER 174 mg/dL 70-110 H TESTED AT [place] [address] ([facility]) (test code = [facility] 1538) [address] POCT-GLUCOSE [id number] 18:18:00 Test Item Value Reference Range Interpretation Comments POC-GLUCOSE METER 230 mg/dL 70-110 H TESTED AT [place] [address] ([facility]) (test code = [facility] 1538) [address] POCT-GLUCOSE [id number] 13:15:00 Test Item Value Reference Range Interpretation Comments POC-GLUCOSE METER 104 mg/dL 70-110 TESTED AT [place] [address] ([facility]) (test code = [facility] 1538) [address] TACROLIMUS [id number] 11:40:00 Test Item Value Reference Range Interpretation Comments TACROLIMUS BLOOD ([facility]) (test 4.3 ng/mL 10.0-20.0 L code = 657) POCT-GLUCOSE [id number] 09:28:00 Test Item Value Reference Range Interpretation Comments POC-GLUCOSE METER 206 mg/dL 70-110 H TESTED AT [facility] 6720 (BEAKER) (test code = PARESH [place] 1538) [address] BASIC METABOLIC [id number] 07:44:00 Test Item Value Reference Range Interpretation [...] PATIEN TS. CBC W/PLT COUNT & AUTO [id number] 06:46:00 Test Item Value Reference Range Interpretation [...] PERCENT (BEAKER) (test code = 2801) POCT-GLUCOSE [id number] 18:11:00 Test Item Value Reference Range Interpretation Comments POC-GLUCOSE METER 214 mg/dL 70-110 H TESTED AT [place] [address] ([facility]) (test code = PARESH Garcia [facility] 1538) [address] POCT-GLUCOSE [id number] 12:38:00 Test Item Value Reference Range Interpretation Comments POC-GLUCOSE METER 173 mg/dL 70-110 H TESTED AT [facility] 6720 ([facility]) (test code = PARESH Garcia [facility] 1538) [address] TACROLIMUS [id number] 10:03:00 Test Item Value Reference Range Interpretation Comments TACROLIMUS BLOOD (BEAKER) (test 6.2 ng/mL 10.0-20.0 L code = 657) CBC W/PLT COUNT & AUTO [id number] 07:36:00 Test Item Value Reference Range Interpretation [...] Received comment: User comments: Slide comments:HEPATIC FUNCTION [id number] 06:16:00 Test Item Value Reference Range Interpretation [...] 84 U/L 6-55 H 347) BASIC METABOLIC [id number] 06:16:00 Test Item Value Reference Range Interpretation Comments SODIUM (BEAKER) 139 meq/L 136-145 (test code = 381) POTASSIUM (BEAKER) 4.1 meq/L 3.5-5.1 (test code = 379) CHLORIDE (BEAKER) 102 meq/L 98-107 (test code = 382) CO2 (BEAKER) (test 23 meq/L 22-29 code = 355) BLOOD UREA NITROGEN 76 mg/dL 7-21 H (BEAKER) (test code = 354) CREATININE ([facility]) 2.77 mg/dL 0.57-1.25 H (test code = 358) GLUCOSE RANDOM 111 mg/dL 70-105 H ([facility]) (test code = 652) CALCIUM ([facility]) 8.2 mg/dL 8.4-10.2 L (test code = 697) EGFR ([facility]) (test 24 mL/min/1.73 ESTIMA ABDULLAHI GFR IS code = 1092) sq m NOT ACCURATE CREATININE CLEARANCE IN PREDICTING GLOMERULAR FILTRATION RATE . ESTIMATED GFR I S NOT APPLICABLE FOR DIALYSIS PATIEN TS. POCT-GLUCOSE [id number] 00:25:00 Test Item Value Reference Range Interpretation Comments POC-GLUCOSE METER 149 mg/dL 70-110 H TESTED AT [place] [address] ([facility]) (test code = [facility] 1538) [address] POCT-GLUCOSE [id number] 18:42:00 Test Item Value Reference Range Interpretation Comments POC-GLUCOSE METER 204 mg/dL 70-110 H TESTED AT [place] [address] ([facility]) (test code = [facility] 1538) [address] POCT-GLUCOSE [id number] 11:49:00 Test Item Value Reference Range Interpretation Comments POC-GLUCOSE METER 104 mg/dL 70-110 TESTED AT [place] [address] ([facility]) (test code = [facility] 1538) [address] TACROLIMUS [id number] 09:02:00 Test Item Value Reference Range Interpretation Comments TACROLIMUS BLOOD ([facility]) (test 7.4 ng/mL 10.0-20.0 L code = 657) RAD, CHEST, 1 VIEW, NON [id number] 08:16:00Reason for exam:->respiratory failureShould this be performed at the bedside?->YesFINAL REPORT Chest one view compared to January 06 Discussion: Bilateral airspace pu lmonary opacities are similar. Lateral lines in place lower SVC level. No gross effusion or pneumothorax. Signed: Denilson Callejas Verified Date/Time: 01/07/2018 08:16:36 Reading Location: [facility] Radiology Reading Room BASIC METABOLIC [id number] 05:23:00 Test Item Value Reference Range Interpretation [...] PATIEN TS. CBC W/PLT COUNT & AUTO [id number] 05:21:00 Test Item Value Reference Range Interpretation [...] (BEAKER) (test code = 2801) HEPATIC FUNCTION [id number] 05:21:00 Test Item Value Reference Range Interpretation [...] = 91 U/L 6-55 H 347) POCT-GLUCOSE [id number] 23:36:00 Test Item Value Reference Range Interpretation Comments POC-GLUCOSE METER 86 mg/dL 70-110 TESTED AT [facility] 6720 ([facility]) (test code = PARESH Garcia [facility] [address] 1538) POCT-GLUCOSE [id number] 22:44:00 Test Item Value Reference Range Interpretation Comments POC-GLUCOSE METER 138 mg/dL 70-110 H TESTED AT [place] [address] ([facility]) (test code = PARESH Garcia [facility] 1538) [address] HEPATOBILIARY [id number] 16:02:00Per REPORT PROCEDURE: HEPATOBILIARY SCAN CPT CODE: 53052 INDICATION: Right upper quadrant pain, fever, leukocytosis [...] is nonvisualization of the gallbladder. While this findingis consistent with acute cholecystitis, no morphine sulfate are delayed images were obtained to verify and to increase the positive predictive value. Imaging studies available for correlation included ultrasound abdomen 12/27/2017. Signed: Kasia Aiken Verified Date/Time: 01/06/2018 16:02:34 Reading Location: [address] Reading Room TACROLIMUS [id number] 10:39:00 Test Item Value Reference Range Interpretation Comments TACROLIMUS BLOOD (KATELYNN) (test 9.1 ng/mL 10.0-20.0 L code = 657) RAD, CHEST, 1 VIEW, NON [id number] 03:58:00Reason for exam:->respiratory failureShould this be performed at the bedside?->YesFINAL REPORT EXAMINATION: AP PORTABLE CHEST RADIOGRAPH CLINICAL INDICATION: Resp iratory failure IMPRESSION: Compared with 01/05/2018 Support tube and catheter positions are unchanged. Cardiac and mediastinal contours are stable. Relatively stable opacities are again noted throughoutboth lungs, most conspicuous in the perihilar regions and lung bases. The small superimposed pleuraleffusions and/or pleural thickening are also stable. No evidence of new lung consolidation or pneumothorax. In summary, no significant interval change. Signed: Osiris Reagan Verified Date/Time:01/06/2018 03:58:03 Reading Location: [address] Reading Room CBC W/PLT COUNT & AUTO [id number] 03:53:00 Test Item Value Reference Range Interpretation [...] (BEAKER) (test code = 2801) BASIC METABOLIC [id number] 03:51:00 Test Item Value Reference Range Interpretation [...] S NOT APPLICABLE FOR DIALYSIS PATIEN TS. [id number] 03:51:00 Test Item Value Reference Range Interpretation Comments MAGNESIUM (BEAKER) (test code = 2.1 mg/dL 1.6-2.6 627) [id number] 03:51:00 Test Item Value Reference Range Interpretation Comments PHOSPHORUS (BEAKER) (test code = 3.9 mg/dL 2.3-4.7 604) POCT-GLUCOSE [id number] 00:02:00 Test Item Value Reference Range Interpretation Comments POC-GLUCOSE METER 110 mg/dL 70-110 TESTED AT [facility] 67 ([facility]) (test code = PARESH Garcia [place] 1538) [address] BASIC METABOLIC [id number] 18:14:00 Test Item Value Reference Range Interpretation [...] NOT APPLICABLE FOR DIALYSIS PATIEN TS. POCT-GLUCOSE [id number] 17:56:00 Test Item Value Reference Range Interpretation Comments POC-GLUCOSE METER 143 mg/dL 70-110 H TESTED AT [facility] 6720 [facility] (test code = PARESH Garcia [place] 1538) [address] [id number] 16:39:00 Test Item Value Reference Range Interpretation Comments POTASSIUM (BEAKER) (test code = 4.7 meq/L 3.5-5.1 379) CALCIUM, [id number] 16:33:00 Test Item Value Reference Range Interpretation Comments CALCIUM IONIZED (BEAKER) (test 1.11 mmol/L 1.12-1.27 L code = 698) PH, BLOOD (BEAKER) (test code = 7.53 1810) [id number] 12:31:00 Test Item Value Reference Range Interpretation Comments POTASSIUM (BEAKER) (test code = 4.2 meq/L 3.5-5.1 379) POCT-GLUCOSE [id number] 12:06:00 Test Item Value Reference Range Interpretation Comments POC-GLUCOSE METER 137 mg/dL 70-110 H TESTED AT [facility] 6720 (BEAKER) (test code = PARESH [place] 1538) [address] [id number] 10:53:00 Test Item Value Reference Range Interpretation Comments AMYLASE (BEAKER) (test code = 349) 53 U/L 25-125 Specimen slightly [id number] 10:53:00 Test Item Value Reference Range Interpretation Comments LIPASE (BEAKER) (test code = 749) 34 U/L 8-78 Specimen slightly ictericTACROLIMUS [id number] 10:02:00 Test Item Value Reference Range Interpretation Comments TACROLIMUS BLOOD (BEAKER) (test 8.9 ng/mL 10.0-20.0 L code = 657) [id number] 08:58:00 Test Item Value Reference Range Interpretation Comments PHOSPHORUS (BEAKER) (test code = 2.5 mg/dL 2.3-4.7 604) [id number] 08:58:00 Test Item Value Reference Range Interpretation Comments MAGNESIUM (BEAKER) (test code = 1.9 mg/dL 1.6-2.6 627) BASIC METABOLIC [id number] 08:58:00 Test Item Value Reference Range Interpretation [...] NOT APPLICABLE FOR DIALYSIS PATIEN TS. CALCIUM, [id number] 08:38:00 Test Item Value Reference Range Interpretation Comments CALCIUM IONIZED (BEAKER) (test 1.07 mmol/L 1.12-1.27 L code = 698) PH, BLOOD (BEAKER) (test code = 7.51 1810) RAD, CHEST, 1 VIEW, NON [id number] 06:36:00Reason for exam:->respiratory failureShould this be performed at the bedside?->YesFINAL REPORT Chest one view. Clinical history: respiratory failure Comparison: Chest radiograph 01/04/2018. Technique: A single frontal view of the chest was obtained. Findings: Cardiomediastinal contours are unchanged. There is a feeding tube in satisfactory position. There has been interval removal of endotracheal tube. There is a left-sided central venous catheter with tip in the SVC. There is a right PICC line with tip in the SVC/RA junction.The patient is status post median sternotomy. Surgical clips overlie the left mediastinum. There are diffuse bilateral airspace opacities, not significantly changed. There are small bilateral pleural effusions. There is no pneumothorax. Signed: David Yee MDReport Verified Date/Time: 01/05/2018 06:36:45 Reading Location: [address] Transitional Reading Room BASIC METABOLIC [id number] 06:33:00 Test Item Value Reference Range Interpretation [...] DIALYSIS PATIEN TS. Specimen slightly ictericHEPATIC FUNCTION [id number] 06:33:00 Test Item Value Reference Range Interpretation [...] Specimen slightly ictericCBC W/PLT COUNT & AUTO [id number] 06:07:00 Test Item Value Reference Range Interpretation [...] H PERCENT (BEAKER) (test code = 2801) [id number] 00:54:00 Test Item Value Reference Range Interpretation Comments POTASSIUM (BEAKER) (test code = 4.0 meq/L 3.5-5.1 379) CALCIUM, [id number] 00:39:00 Test Item Value Reference Range Interpretation Comments CALCIUM IONIZED (BEAKER) (test 1.09 mmol/L 1.12-1.27 L code = 698) PH, BLOOD (BEAKER) (test code = 7.49 1810) POCT-GLUCOSE [id number] 00:12:00 Test Item Value Reference Range Interpretation Comments POC-GLUCOSE METER 96 mg/dL 70-110 TESTED AT [facility] 6720 (BEAKER) (test code = [place] [address]) [id number] 20:37:00 Test Item Value Reference Range Interpretation Comments POTASSIUM (BEAKER) (test code = 4.3 meq/L 3.5-5.1 379) [id number] 20:37:00 Test Item Value Reference Range Interpretation Comments MAGNESIUM (BEAKER) (test code = 2.0 mg/dL 1.6-2.6 627) [id number] 20:37:00 Test Item Value Reference Range Interpretation Comments PHOSPHORUS (BEAKER) (test code = 2.1 mg/dL 2.3-4.7 L 604) [id number] 17:29:00 Test Item Value Reference Range Interpretation Comments POTASSIUM (BEAKER) (test code = 4.6 meq/L 3.5-5.1 379) BASIC METABOLIC [id number] 17:29:00 Test Item Value Reference Range Interpretation [...] FOR DIALYSIS PATIEN TS. Specimen slightly ictericCALCIUM, [id number] 17:06:00 Test Item Value Reference Range Interpretation Comments CALCIUM IONIZED (BEAKER) (test 1.09 mmol/L 1.12-1.27 L code = 698) PH, BLOOD (BEAKER) (test code = 7.49 1810) TACROLIMUS [id number] 14:39:00 Test Item Value Reference Range Interpretation Comments TACROLIMUS BLOOD (BEAKER) (test 9.5 ng/mL 10.0-20.0 L code = 657) [id number] 13:49:00 Test Item Value Reference Range Interpretation Comments POTASSIUM (BEAKER) (test code = 4.4 meq/L 3.5-5.1 379) POCT-GLUCOSE [id number] 12:21:00 Test Item Value Reference Range Interpretation Comments POC-GLUCOSE METER 182 mg/dL 70-110 H TESTED AT [facility] 6720 (BEAKER) (test code = PARESH [place] 1538) [address] [id number] 10:13:00 Test Item Value Reference Range Interpretation Comments MAGNESIUM (BEAKER) (test code = 2.3 mg/dL 1.6-2.6 627) BASIC METABOLIC [id number] 10:13:00 Test Item Value Reference Range Interpretation [...] Specimen slightly ictericRAD, CHEST, 1 VIEW, NON [id number] 09:57:00Reason for exam:->respiratory failureShould this be performed [...] MDReport Verified Date/Time: 01/04/2018 09:57:17 Reading Location: [facility] B1 C013Y CT Body Reading Room CALCIUM, [id number] 09:33:00 Test Item Value Reference Range Interpretation Comments CALCIUM IONIZED (BEAKER) (test 1.12 mmol/L 1.12-1.27 code = 698) PH, BLOOD (BEAKER) (test code = 7.45 1810) Check serum Ionized Calcium level after 4 hours after IV Calcium replacement. [id number] 06:16:00 Test Item Value Reference Range Interpretation Comments PHOSPHORUS (BEAKER) (test code = 3.2 mg/dL 2.3-4.7 604) [id number] 06:16:00 Test Item Value Reference Range Interpretation Comments MAGNESIUM (BEAKER) (test code = 1.9 mg/dL 1.6-2.6 627) BASIC METABOLIC [id number] 06:16:00 Test Item Value Reference Range Interpretation [...] Specimen slightly ictericCBC W/PLT COUNT & AUTO [id number] 05:51:00 Test Item Value Reference Range Interpretation [...] (BEAKER) (test code = 2801) BLOOD GAS, [id number] 05:27:00 Test Item Value Reference Range Interpretation [...] (test code = 1819) 40.0 % CALCIUM, [id number] 05:27:00 Test Item Value Reference Range Interpretation Comments CALCIUM IONIZED (BEAKER) (test 1.14 mmol/L 1.12-1.27 code = 698) PH, BLOOD (BEAKER) (test code = 7.42 1810) [id number] 00:40:00 Test Item Value Reference Range Interpretation Comments POTASSIUM (BEAKER) (test code = 4.2 meq/L 3.5-5.1 379) CALCIUM, [id number] 00:26:00 Test Item Value Reference Range Interpretation Comments CALCIUM IONIZED (BEAKER) (test 1.15 mmol/L 1.12-1.27 code = 698) PH, BLOOD (BEAKER) (test code = 7.42 1810) POCT-GLUCOSE [id number] 00:09:00 Test Item Value Reference Range Interpretation Comments POC-GLUCOSE METER 224 mg/dL 70-110 H TESTED AT [facility] 6720 (BEAKER) (test code = PARESH [place] 1538) [address] [id number] 21:19:00 Test Item Value Reference Range Interpretation Comments POTASSIUM (BEAKER) (test code = 4.6 meq/L 3.5-5.1 379) [id number] 21:19:00 Test Item Value Reference Range Interpretation Comments MAGNESIUM (BEAKER) (test code = 1.9 mg/dL 1.6-2.6 627) [id number] 21:19:00 Test Item Value Reference Range Interpretation Comments PHOSPHORUS (BEAKER) (test code = 2.7 mg/dL 2.3-4.7 604) BASIC METABOLIC [id number] 19:10:00 Test Item Value Reference Range Interpretation [...] NOT APPLICABLE FOR DIALYSIS PATIEN TS. POCT-GLUCOSE [id number] 18:48:00 Test Item Value Reference Range Interpretation Comments POC-GLUCOSE METER 176 mg/dL 70-110 H TESTED AT [facility] 6720 (BEAKER) (test code = PARESH [place] 1538) [address] [id number] 16:50:00 Test Item Value Reference Range Interpretation Comments POTASSIUM (BEAKER) (test code = 4.9 meq/L 3.5-5.1 379) CALCIUM, [id number] 16:31:00 Test Item Value Reference Range Interpretation Comments CALCIUM IONIZED (BEAKER) (test 1.12 mmol/L 1.12-1.27 code = 698) PH, BLOOD (BEAKER) (test code = 7.42 1810) POCT-GLUCOSE [id number] 13:33:00 Test Item Value Reference Range Interpretation Comments POC-GLUCOSE METER 259 mg/dL 70-110 H TESTED AT [facility] 6720 (BEAKER) (test code = PARESH [place] 1538) [address] [id number] 13:26:00 Test Item Value Reference Range Interpretation Comments POTASSIUM (BEAKER) (test code = 4.5 meq/L 3.5-5.1 379) [id number] 10:47:00 Test Item Value Reference Range Interpretation Comments CORTISOL, TOTAL (BEAKER) (test code 8.7 ug/dL 3.7-19.4 = 9165) It is important that this lab be drawn as close to 8 am as possible. Thanks! [id number] 09:00:00 Test Item Value Reference Range Interpretation Comments PHOSPHORUS (BEAKER) (test code = 2.4 mg/dL 2.3-4.7 604) [id number] 09:00:00 Test Item Value Reference Range Interpretation Comments MAGNESIUM (BEAKER) (test code = 2.1 mg/dL 1.6-2.6 627) BASIC METABOLIC [id number] 09:00:00 Test Item Value Reference Range Interpretation [...] FOR DIALYSIS PATIEN TS. Specimen slightly ictericTACROLIMUS [id number] 08:45:00 Test Item Value Reference Range Interpretation Comments TACROLIMUS BLOOD (BEAKER) (test 8.1 ng/mL 10.0-20.0 L code = 657) CBC W/PLT COUNT & AUTO [id number] 08:28:00 Test Item Value Reference Range Interpretation [...] 3438) Received comment: User comments: Slide comments:CALCIUM, [id number] 08:15:00 Test Item Value Reference Range Interpretation Comments CALCIUM IONIZED (BEAKER) (test 1.03 mmol/L 1.12-1.27 L code = 698) PH, BLOOD (BEAKER) (test code = 7.40 1810) RAD, CHEST, 1 VIEW, NON [id number] 07:27:00Reason for exam:->respiratory failureShould this be performed at the bedside?->YesFINAL REPORT Chest one view. Clinical history: respiratory failure Comparison: Discussion: A frontal chest is provided. Cardiomediastinal contours are unchanged. Lines andtubes are in stable position. Extensive bilateral interstitial and airspace opacities appear unchanged. Small right pleural effusion is suspected. No pneumothorax. Signed: Judy Perryeport Verified Tj e/Time: 01/03/2018 07:27:35 Reading Location: [facility] Radiology Reading Room POCT- GLUCOSE [id number] 06:51:00 Test Item Value Reference Range Interpretation Comments POC-GLUCOSE METER 230 mg/dL 70-110 H TESTED AT [facility] 6720 (BEAKER) (test code = PARESH [place] 1538) [address] [id number] 04:24:00 Test Item Value Reference Range Interpretation Comments MAGNESIUM (BEAKER) (test code = 2.1 mg/dL 1.6-2.6 627) BASIC METABOLIC [id number] 04:24:00 Test Item Value Reference Range Interpretation [...] FOR DIALYSIS PATIEN TS. Specimen slightly ictericCALCIUM, [id number] 04:07:00 Test Item Value Reference Range Interpretation Comments CALCIUM IONIZED (BEAKER) (test 1.12 mmol/L 1.12-1.27 code = 698) PH, BLOOD (BEAKER) (test code = 7.39 1810) BLOOD GAS, [id number] 04:07:00 Test Item Value Reference Range Interpretation [...] (BEAKER) (test code = 1819) 40.0 % [id number] 01:24:00 Test Item Value Reference Range Interpretation Comments POTASSIUM (BEAKER) (test code = 4.0 meq/L 3.5-5.1 379) CALCIUM, [id number] 01:04:00 Test Item Value Reference Range Interpretation Comments CALCIUM IONIZED (BEAKER) (test 1.09 mmol/L 1.12-1.27 L code = 698) PH, BLOOD (BEAKER) (test code = 7.36 1810) POCT-GLUCOSE [id number] 00:16:00 Test Item Value Reference Range Interpretation Comments POC-GLUCOSE METER 227 mg/dL 70-110 H TESTED AT [facility] 6720 (BEAKER) (test code = PARESH Jose [place] 4368) [address] [id number] 20:37:00 Test Item Value Reference Range Interpretation Comments POTASSIUM (BEAKER) (test code = 4.4 meq/L 3.5-5.1 379) [id number] 20:37:00 Test Item Value Reference Range Interpretation Comments MAGNESIUM (BEAKER) (test code = 1.9 mg/dL 1.6-2.6 627) [id number] 20:37:00 Test Item Value Reference Range Interpretation Comments PHOSPHORUS (BEAKER) (test code = 1.8 mg/dL 2.3-4.7 L 604) BASIC METABOLIC [id number] 18:56:00 Test Item Value Reference Range Interpretation [...] FOR DIALYSIS PATIEN TS. Specimen slightly ictericPOCT-GLUCOSE [id number] 18:20:00 Test Item Value Reference Range Interpretation Comments POC-GLUCOSE METER 224 mg/dL 70-110 H TESTED AT [facility] 6720 (BEAKER) (test code = JACQUELINEIRINEO Jose [place] 1538) [address] [id number] 17:48:00 Test Item Value Reference Range Interpretation Comments POTASSIUM (BEAKER) 4.7 meq/L 3.5-5.1 Specimen slightly (test code = 379) hemolyzed CALCIUM, [id number] 17:35:00 Test Item Value Reference Range Interpretation Comments CALCIUM IONIZED (BEAKER) (test 1.12 mmol/L 1.12-1.27 code = 698) PH, BLOOD (BEAKER) (test code = 7.41 1810) PLATELET [id number] 17:35:00 Test Item Value Reference Range Interpretation Comments PLATELET COUNT (BEAKER) (test code 31 K/CU MM 150-450 L = 756) POCT-GLUCOSE [id number] 12:15:00 Test Item Value Reference Range Interpretation Comments POC-GLUCOSE METER 181 mg/dL 70-110 H TESTED AT [facility] 6720 (BEAKER) (test code = PARESH [place] 1538) [address] [id number] 10:15:00 Test Item Value Reference Range Interpretation Comments POTASSIUM (BEAKER) (test code = 4.4 meq/L 3.5-5.1 379) [id number] 10:15:00 Test Item Value Reference Range Interpretation Comments MAGNESIUM (BEAKER) (test code = 2.3 mg/dL 1.6-2.6 627) [id number] 10:15:00 Test Item Value Reference Range Interpretation Comments PHOSPHORUS (BEAKER) (test code = 2.2 mg/dL 2.3-4.7 L 604) BASIC METABOLIC [id number] 10:15:00 Test Item Value Reference Range Interpretation [...] FOR DIALYSIS PATIEN TS. Specimen slightly ictericTACROLIMUS [id number] 09:21:00 Test Item Value Reference Range Interpretation Comments TACROLIMUS BLOOD (BEAKER) (test 7.8 ng/mL 10.0-20.0 L code = 657) CALCIUM, [id number] 09:15:00 Test Item Value Reference Range Interpretation Comments CALCIUM IONIZED (BEAKER) (test 1.15 mmol/L 1.12-1.27 code = 698) PH, BLOOD (BEAKER) (test code = 7.42 1810) RAD, CHEST, 1 VIEW, NON [id number] 09:14:00Reason for exam:->respiratory failureShould this be performed [...] MDReport Verified Date/Time: 01/02/2018 09:14:20 Reading Location: [facility] Radiology Reading Room BLOOD GAS, [id number] 05:19:00 Test Item Value Reference Range Interpretation [...] 40.0 % CBC W/PLT COUNT & AUTO [id number] 05:04:00 Test Item Value Reference Range Interpretation [...] (BEAKER) (test code = 2801) BASIC METABOLIC [id number] 05:04:00 Test Item Value Reference Range Interpretation [...] FOR DIALYSIS PATIEN TS. Specimen slightly ictericCALCIUM, [id number] 04:48:00 Test Item Value Reference Range Interpretation Comments CALCIUM IONIZED (BEAKER) (test 1.10 mmol/L 1.12-1.27 L code = 698) PH, BLOOD (BEAKER) (test code = 7.39 1810) [id number] 01:06:00 Test Item Value Reference Range Interpretation Comments POTASSIUM (BEAKER) (test code = 4.2 meq/L 3.5-5.1 379) CALCIUM, [id number] 00:53:00 Test Item Value Reference Range Interpretation Comments CALCIUM IONIZED (BEAKER) (test 1.17 mmol/L 1.12-1.27 code = 698) PH, BLOOD (BEAKER) (test code = 7.36 1810) POCT-GLUCOSE [id number] 00:37:00 Test Item Value Reference Range Interpretation Comments POC-GLUCOSE METER 233 mg/dL 70-110 H TESTED AT [facility] 6720 (BEAKER) (test code = PARESH [place] 1538) [address] [id number] 21:09:00 Test Item Value Reference Range Interpretation Comments POTASSIUM (BEAKER) (test code = 4.2 meq/L 3.5-5.1 379) [id number] 21:09:00 Test Item Value Reference Range Interpretation Comments MAGNESIUM (BEAKER) (test code = 2.1 mg/dL 1.6-2.6 627) [id number] 21:09:00 Test Item Value Reference Range Interpretation Comments PHOSPHORUS (BEAKER) (test code = 2.3 mg/dL 2.3-4.7 604) POCT-GLUCOSE [id number] 18:00:00 Test Item Value Reference Range Interpretation Comments POC-GLUCOSE METER 262 mg/dL 70-110 H TESTED AT [facility] 6720 (BEAKER) (test code = PARESH [place] 1538) [address] BASIC METABOLIC [id number] 17:51:00 Test Item Value Reference Range Interpretation [...] DIALYSIS PATIEN TS. Specimen slightly ictericVANCOMYCIN LEVEL, [id number] 17:51:00 Test Item Value Reference Range Interpretation Comments VANCOMYCIN TROUGH (BEAKER) (test 11.6 ug/mL 10.0-20.0 code = 522) CALCIUM, [id number] 17:26:00 Test Item Value Reference Range Interpretation Comments CALCIUM IONIZED (BEAKER) (test 1.09 mmol/L 1.12-1.27 L code = 698) PH, BLOOD (BEAKER) (test code = 7.38 1810) [id number] 14:04:00 Test Item Value Reference Range Interpretation Comments POTASSIUM (BEAKER) (test code = 4.0 meq/L 3.5-5.1 379) BRONCHIAL CULTURE + GRAM [id number] 13:45:00 Test Item Value Reference Range Interpretation Comments CULTURE (BEAKER) (test code No growth = 1095) GRAM STAIN RESULT (BEAKER) 1+ WBCs (test code = 1123) GRAM STAIN RESULT (BEAKER) No organisms seen (test code = 36071) POCT-GLUCOSE [id number] 13:12:00 Test Item Value Reference Range Interpretation Comments POC-GLUCOSE METER 210 mg/dL 70-110 H TESTED AT [facility] 6720 (BEAKER) (test code = PARESH [place] 1538) [address] BLOOD GAS, [id number] 11:50:00 Test Item Value Reference Range Interpretation [...] (BEAKER) (test code = 1819) 40.0 % [id number] 09:26:00 Test Item Value Reference Range Interpretation Comments POTASSIUM (BEAKER) (test code = 4.3 meq/L 3.5-5.1 379) [id number] 09:26:00 Test Item Value Reference Range Interpretation Comments MAGNESIUM (BEAKER) (test code = 2.1 mg/dL 1.6-2.6 627) [id number] 09:26:00 Test Item Value Reference Range Interpretation Comments PHOSPHORUS (BEAKER) (test code = 3.0 mg/dL 2.3-4.7 604) TACROLIMUS [id number] 09:06:00 Test Item Value Reference Range Interpretation Comments TACROLIMUS BLOOD (BEAKER) (test 7.8 ng/mL 10.0-20.0 L code = 657) POCT-GLUCOSE [id number] 08:39:00 Test Item Value Reference Range Interpretation Comments POC-GLUCOSE METER 255 mg/dL 70-110 H TESTED AT [facility] 6720 (BEAKER) (test code = PARESH [place] 1538) [address] CALCIUM, [id number] 08:34:00 Test Item Value Reference Range Interpretation Comments CALCIUM IONIZED (BEAKER) (test 1.14 mmol/L 1.12-1.27 code = 698) PH, BLOOD (BEAKER) (test code = 7.39 1810) CBC W/PLT COUNT & AUTO [id number] 07:35:00 Test Item Value Reference Range Interpretation [...] Received comment: User comments: Slide comments:BLOOD GAS, [id number] 06:11:00 Test Item Value Reference Range Interpretation [...] (test code = 1819) 40.0 % BLOOD [id number] 06:00:00 Test Item Value Reference Range Interpretation Comments CULTURE (BEAKER) (test No growth in 5 days code = 1095) BLOOD [id number] 06:00:00 Test Item Value Reference Range Interpretation Comments CULTURE (BEAKER) (test No growth in 5 days code = 1095) RAD, CHEST, 1 VIEW, NON [id number] 05:37:00Reason for exam:->shortness of breathShould this be performed at the bedside?->YesFINAL REPORT Comparison exam: 12/31/2017 Diffuse bilateral pulmonary opacities, un changed. Blunting of the right costophrenic angle. Stable cardiomediastinal contours. Appropriate position of the support hardware. Signed: Mio Fink MDReport Verified Date/Time: 01/01/2018 05:37:06Reading Location: [address] Transitional Reading Room BASIC METABOLIC [id number] 05:06:00 Test Item Value Reference Range Interpretation [...] APPLICABLE FOR DIALYSIS PATIEN TS. Specimen slightly [id number] 01:21:00 Test Item Value Reference Range Interpretation Comments POTASSIUM (BEAKER) (test code = 4.3 meq/L 3.5-5.1 379) CRYPTOCOCCAL [id number] 01:09:00 Test Item Value Reference Range Interpretation Comments CRYPTOCOCCAL ANTIGEN, SERUM Negative Negative, Interference (BEAKER) (test code = 1828) CALCIUM, [id number] 00:26:00 Test Item Value Reference Range Interpretation Comments CALCIUM IONIZED (BEAKER) (test 1.09 mmol/L 1.12-1.27 L code = 698) PH, BLOOD (BEAKER) (test code = 7.38 1810) POCT-GLUCOSE [id number] 00:02:00 Test Item Value Reference Range Interpretation Comments POC-GLUCOSE METER 165 mg/dL 70-110 H TESTED AT [place] [address] [facility] ([facility] = [facility] [place] 1538) [address] [id number] 21:18:00 Test Item Value Reference Range Interpretation Comments POTASSIUM (BEAKER) (test code = 4.6 meq/L 3.5-5.1 379) [id number] 21:18:00 Test Item Value Reference Range Interpretation Comments MAGNESIUM (BEAKER) (test code = 2.1 mg/dL 1.6-2.6 627) [id number] 21:18:00 Test Item Value Reference Range Interpretation Comments PHOSPHORUS (BEAKER) (test code = 4.2 mg/dL 2.3-4.7 604) POCT-GLUCOSE [id number] 18:03:00 Test Item Value Reference Range Interpretation Comments POC-GLUCOSE METER 142 mg/dL 70-110 H TESTED AT [facility] 67 ([facility]) (test code = [facility] [place] 1538) [address] BLOOD GAS, [id number] 17:55:00 Test Item Value Reference Range Interpretation [...] (BEAKER) (test code = 1819) 40.0 % [id number] 17:29:00 Test Item Value Reference Range Interpretation Comments POTASSIUM (BEAKER) (test code = 4.9 meq/L 3.5-5.1 379) CALCIUM, [id number] 16:38:00 Test Item Value Reference Range Interpretation Comments CALCIUM IONIZED (BEAKER) (test 1.05 mmol/L 1.12-1.27 L code = 698) PH, BLOOD (BEAKER) (test code = 7.37 1810) [id number] 14:13:00Medical Cytology Report Case: [id number] Authorizing Provider: Diane Eastman MD Collected: 12/30/2017 1434 Ordering Location: [address] Received: 12/30/2017 1620 Pathologist: Rivera Painter MD Specimen: Lung, Right Middle Lobe, BAL RIGHT MIDDLE LOBE LUNG, BAL (CYTOSPINS): - NEGATIVE FOR MALIGNANCY LIMITED BY OBSCURING ACUTE INFLAMMATION AND SCANT PULMONARY ELEMENTS The GMS stains are negative for Pneumocystis organisms and other fungi. No viral inclusions are seen. 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 and rejection.RIGHT MIDDLE LOBE LUNG BALPrepared 3 cytospins, 1 iron stain and 1 GMS from40 ml cytorich red fixative sampleCollected: [id number]: [id number] following special studies were performed on this case and the interpretation is incorporated in the diagnostic report above:Nini [facility], Department of Pathology, [address] [place], [place] [address], [facility], [facility] of [facility]ology, [address] [place] [address], [facility], Department of Pathology, [address] [place] [address], [id number] 13:49:00 Test Item Value Reference Range Interpretation Comments POTASSIUM (BEAKER) (test code = 4.9 meq/L 3.5-5.1 379) RAD, ABDOMEN/KUB, 1 VIEW [id number] 13:24:00Reason for exam:->corpak placement Should this be performed at the bedside?->YesFINAL REPORT TECHNIQUE: Supine view of the abdomen dated 12/31/2017 COMPARISON: Ab dominal radiograph dated 04/28/2014 HISTORY: Enteric tube placement. IMPRESSION:Enteric tube is seenwith the tip in the region of the ligament of Treitz. No air-filled, dilated loops of bowel to suggest obstruction. No free intraperitoneal air. No abnormal soft tissue mass or calcification. No fracture. Signed: Micheal Crenshaweport Verified Date/Time: 12/31/2017 13:24:39 Reading Location: [facility] Radiology Reading Room POCT-GLUCOSE [id number] 12:27:00 Test Item Value Reference Range Interpretation Comments POC-GLUCOSE METER 170 mg/dL 70-110 H TESTED AT [place] [address] (BEAKER) (test code = PARESH Garcia [facility] 1538) [address] SPIN/CONCENTRATION [id number] 12:24:00 Test Item Value Reference Range Interpretation Comments CONCENTRATION CHARGED (BEAKER) (test Done code = 2657) [id number] 09:52:00 Test Item Value Reference Range Interpretation Comments POTASSIUM (BEAKER) (test code = 4.7 meq/L 3.5-5.1 379) [id number] 09:52:00 Test Item Value Reference Range Interpretation Comments MAGNESIUM (BEAKER) (test code = 2.3 mg/dL 1.6-2.6 627) [id number] 09:52:00 Test Item Value Reference Range Interpretation Comments PHOSPHORUS (BEAKER) (test code = 5.3 mg/dL 2.3-4.7 H 604) TACROLIMUS [id number] 08:55:00 Test Item Value Reference Range Interpretation Comments TACROLIMUS BLOOD (BEAKER) (test 7.2 ng/mL 10.0-20.0 L code = 657) CALCIUM, [id number] 08:29:00 Test Item Value Reference Range Interpretation Comments CALCIUM IONIZED (BEAKER) (test 1.01 mmol/L 1.12-1.27 L code = 698) PH, BLOOD (BEAKER) (test code = 7.36 1810) Check serum Ionized Calcium level after 4 hours after IV Calcium replacement. RAD, CHEST, 1 VIEW, NON [id number] 06:37:00Reason for exam:->shortness of breathShould this be performed at the bedside?->YesFINAL REPORT Comparison exam: 12/30/2017 Extensive bilateral airspace opacities un changed. Stable cardiomediastinal contours. Appropriate position of the support hardware. Signed: Mio Finkeport Verified Date/Time: 12/31/2017 06:37:39 Reading Location: [address] Transitional Reading Room BASIC METABOLIC [id number] 04:02:00 Test Item Value Reference Range Interpretation [...] DIALYSIS PATIEN TS. Specimen slightly ictericHEPATIC FUNCTION [id number] 03:57:00 Test Item Value Reference Range Interpretation [...] Specimen slightly ictericCBC W/PLT COUNT & AUTO [id number] 03:43:00 Test Item Value Reference Range Interpretation [...] (BEAKER) (test code = 2801) BLOOD GAS, [id number] 03:30:00 Test Item Value Reference Range Interpretation [...] code = 1819) 65.0 % OXYGEN SATURATION, [id number] 01:31:00 Test Item Value Reference Range Interpretation Comments O2 SATURATION (MEASURED) (BEAKER) 87.4 % (test code = 1455) CALCIUM, [id number] 01:26:00 Test Item Value Reference Range Interpretation Comments CALCIUM IONIZED (BEAKER) (test 0.93 mmol/L 1.12-1.27 L code = 698) PH, BLOOD (BEAKER) (test code = 7.32 1810) Check serum Ionized Calcium level after 4 hours after IV Calcium replacement. BLOOD GAS, [id number] 01:12:00 Test Item Value Reference Range Interpretation [...] code = 1819) 80.0 % BASIC METABOLIC [id number] 00:59:00 Test Item Value Reference Range Interpretation [...] APPLICABLE FOR DIALYSIS PATIEN TS. Specimen slightly [id number] 00:57:00 Test Item Value Reference Range Interpretation Comments MAGNESIUM (BEAKER) (test code = 2.2 mg/dL 1.6-2.6 627) LACTIC ACID, ARTERIAL, WHOLE [id number] 00:55:00 Test Item Value Reference Range Interpretation Comments LACTATE BLOOD ARTERIAL (2) 1.3 mmol/L 0.5-2.2 (BEAKER) (test code = 2874) Effective 11/02/2015: Units/Reference Range ChangeNew: 0.5-2.2 mmol/L Previous: 5- 20 mg/dLSpecimen slightly [id number] 22:04:00 Test Item Value Reference Range Interpretation Comments POTASSIUM (BEAKER) (test code = 5.7 meq/L 3.5-5.1 H 379) [id number] 20:35:00 Test Item Value Reference Range Interpretation Comments PHOSPHORUS (BEAKER) (test code = 6.9 mg/dL 2.3-4.7 H 604) [id number] 20:35:00 Test Item Value Reference Range Interpretation Comments MAGNESIUM (BEAKER) (test code = 2.2 mg/dL 1.6-2.6 627) BODY FLUID CELL COUNT WITH [id number] 18:56:00 Test Item Value Reference Range Interpretation Comments APPEARANCE FLUID (BEAKER) Moderately Bloody Clear A (test code = 510) COLOR FLUID (BEAKER) (test Colorless Colorless, Straw code = 511) RBC FLUID (BEAKER) (test 28402 /cu mm <=1 H code = 513) [...] Tube (BEAKER) (test code = 2873) POCT-GLUCOSE [id number] 18:40:00 Test Item Value Reference Range Interpretation Comments POC-GLUCOSE METER 156 mg/dL 70-110 H TESTED AT [facility] 6720 (BEAKER) (test code = [place] 1538) [address] BLOOD GAS, [id number] 18:15:00 Test Item Value Reference Range Interpretation [...] code = 1819) 80.0 % U/S, RENAL, [id number] 18:05:00Reason for exam:->NOHEMI AND ASSESS PVR FINAL REPORT Renal ultrasound Comparison: No comparison ultrasounds Clinical History: Acute kidney injury Technique:Sonographic evaluation of the kidneys was performed. 36 images were submitted for interpretation, using a five MHz transducer. Right kidney:The kidney measures 9.4 cm in length. The cortical echogenicity is increased. The cortex measures 1.1 cm. There is no evidenceof a focal mass. There is no evidence [...] Parnell catheter. Impression:Small right kidney.There is no evidenceof hydronephrosis. There is increased echogenicity bilaterally. Signed: Andrea Bates MDReport Verified Date/Time: 12/30/2017 18:05:19 Reading Location: [address] Ultrasound Reading Room LOGY [id number] 18:00:00 Test Item Value Reference Range Interpretation Comments CYTOLOGY RESULT POINTER See Separate Report (BEAKER) (test code = 2629) BASIC METABOLIC [id number] 15:00:00 Test Item Value Reference Range Interpretation [...] APPLICABLE FOR DIALYSIS PATIEN TS. Specimen slightly [id number] 14:59:00 Test Item Value Reference Range Interpretation Comments MAGNESIUM (BEAKER) (test code = 2.4 mg/dL 1.6-2.6 627) RAD, CHEST, 1 VIEW, NON [id number] 14:45:00Reason for exam:->s/p intubation and dialysis line placementFINAL REPORT AP chest, two images HISTORY: Intubation COMPARISON: 12/30/2017 IMPRE SSION:Endotracheal tube placed in satisfactory position. Left IJ catheter present with tip at upper SVC. Right arm PICC present. Stable cardiac silhouette. Diffuse airspace disease in both lungs may reflect edema, pneumonia or ARDS. No pneumothorax. Signed: Damari Ocampo MDReport Verified Date/Time: 12/30/2017 14:45:29 Reading Location: [facility] Reading Room CALCIUM, IONIZED 2017-12-30 14:42:00 Test Item Value Reference Range Interpretation Comments CALCIUM IONIZED (BEAKER) (test 1.02 mmol/L 1.12-1.27 L code = 698) PH, BLOOD (BEAKER) (test code = 7.21 1810) Check serum Ionized Calcium level after 4 hours after IV Calcium replacement. BLOOD GAS, [id number] 14:42:00 Test Item Value Reference Range Interpretation [...] code = 1819) 100.0 % CMV PCR, [id number] 13:37:00 Test Item Value Reference Range Interpretation [...] management of antiviral therapy. For treatment of CMV infection due to reactivation in transplant recipients, a threshold between 4,000 and 5,000 copies/mLis suggested. For treatment of primary CMV infection, a lower threshold can be used.CMV infection may also be monitored using weekly serial measurements. Serial measurements of CMV DNA viral load can be evaluated by identifying a 10-fold change, as [...] and its performance characteristics determined by the [facility] Pathol ogy Department, Section of Molecular Pathology. It has not been cleared or approved by the U.S. Foodand Drug Administration (FDA), since FDA approval is [...] code = 1819) 100.0 % BLOOD GAS, [id number] 12:16:00 Test Item Value Reference Range Interpretation [...] code = 1819) 100.0 % POCT-LACTIC ACID, [id number] 11:59:00 Test Item Value Reference Range Interpretation Comments POC-LACTIC ACID, 2.1 mmol/L 0.4-1.3 H TESTED AT [place] [address] ARTERIAL (BEAKER) [facility] (test code = 2804) [address] POCT-BLOOD GASES, [id number] 11:59:00 Test Item Value Reference Range Interpretation Comments TEMP, CELSIUS-POC 37.0 (BEAKER) (test code = 1834) FIO2-POC (BEAKER) TESTED AT [place] [address] (test code = 1835) [facility] [address] PH, ARTERIAL-POC 7.151 7.350-7.450 LL (BEAKER) (test [...] L ARTERIAL-POC (BEAKER) (test code = 1841) [id number] 11:59:00 Test Item Value Reference Range Interpretation Comments POC-SODIUM (BEAKER) 136 meq/L 135-148 TESTED A T [place] [address] (test code = 1542) [facility] [address] [id number] 11:59:00 Test Item Value Reference Range Interpretation Comments POC-POTASSIUM 5.7 meq/L 3.6-5.5 H TESTED AT [place] [address] ([facility]) (test code [place] [id number] = 1540) [id number] 11:59:00 Test Item Value Reference Range Interpretation Comments POC-GLUCOSE ([facility]) 123 mg/dL 70-110 H TESTED AT [place] [address] (test code = 1855) CORBIN Escobar [facility] [address] POCT-CALCIUM [id number] 11:59:00 Test Item Value Reference Range Interpretation Comments POC-CALCIUM IONIZED 1.06 mmol/L 1.12-1.27 L TESTED [place] [address] ([facility]) (test code = [facility] Jose [facility] 1536) [address] [id number] 11:59:00 Test Item Value Reference Range Interpretation Comments POC-HEMATOCRIT 25 % 40-50 L TESTED AT [place] [address] ([facility]) (test code = [place] [id number] 1857) [id number] 11:59:00 Test Item Value Reference Range Interpretation Comments POC-HEMOGLOBIN 8.5 g/dL 13.0-16.8 L TESTED AT [place] [address] ([facility]) (test code = [facility] 1856) 00[address]NWTBTG AT [place] [address] [place] [facility] [address] TACROLIMUS [id number] 10:52:00 Test Item Value Reference Range Interpretation Comments TACROLIMUS BLOOD ([facility]) (test 8.6 ng/mL 10.0-20.0 L code = 657) RAD, CHEST, 1 VIEW, NON [id number] 04:44:00Reason for exam:->shortness of breathShould this be performed at the bedside?->YesFINAL REPORT Comparison exam: 12/28/2017 Increasing bilateral airspace consolidation. Stable cardiomediastinal contours. Right PICC line terminates in the right atrium. Signed: Mio [place] Verified Date/Time: 12/30/2017 04:44:59 Reading Location: [facility] C013X Ortho Consult Reading Room CBC W/PLT COUNT & AUTO [id number] 03:53:00 Test Item Value Reference Range Interpretation [...] (BEAKER) (test code = 2801) BASIC METABOLIC [id number] 03:35:00 Test Item Value Reference Range Interpretation [...] S NOT APPLICABLE FOR DIALYSIS PATIEN TS. [id number] 03:34:00 Test Item Value Reference Range Interpretation Comments MAGNESIUM (BEAKER) (test code = 2.5 mg/dL 1.6-2.6 627) HEPATIC FUNCTION [id number] 03:34:00 Test Item Value Reference Range Interpretation [...] = 86 U/L 6-55 H 347) CALCIUM, [id number] 03:24:00 Test Item Value Reference Range Interpretation Comments CALCIUM IONIZED (BEAKER) (test 1.04 mmol/L 1.12-1.27 L code = 698) PH, BLOOD (BEAKER) (test code = 7.29 1810) BLOOD GAS, [id number] 03:24:00 Test Item Value Reference Range Interpretation [...] code = 1819) 85.0 % BLOOD GAS, [id number] 21:12:00 Test Item Value Reference Range Interpretation [...] (test code = 1819) 85.0 % POCT-GLUCOSE [id number] 21:11:00 Test Item Value Reference Range Interpretation Comments POC-GLUCOSE METER 117 mg/dL 70-110 H TESTED AT [facility] 6720 (BEAKER) (test code = [place] 1538) [address] LACTIC ACID, ARTERIAL, WHOLE [id number] 20:27:00 Test Item Value Reference Range Interpretation Comments LACTATE BLOOD ARTERIAL (2) 1.0 mmol/L 0.5-2.2 (BEAKER) (test code = 2874) Effective 11/02/2015: Units/Reference Range ChangeNew: 0.5-2.2 mmol/L Previous: 5- 20 mg/dLBLOOD GAS, [id number] 20:09:00 Test Item Value Reference Range Interpretation [...] C (test code = 1818) COMPREHENSIVE METABOLIC [id number] 18:59:00 Test Item Value Reference Range Interpretation [...] S NOT APPLICABLE FOR DIALYSIS PATIEN TS. [id number] 18:35:00 Test Item Value Reference Range Interpretation Comments MAGNESIUM (BEAKER) (test code = 2.3 mg/dL 1.6-2.6 627) BLOOD GAS, [id number] 18:00:00 Test Item Value Reference Range Interpretation [...] C (test code = 1818) OXYGEN SATURATION, [id number] 18:00:00 Test Item Value Reference Range Interpretation Comments O2 SATURATION (MEASURED) (BEAKER) 89.9 % (test code = 1455) CALCIUM, [id number] 18:00:00 Test Item Value Reference Range Interpretation Comments CALCIUM IONIZED (BEAKER) (test 1.03 mmol/L 1.12-1.27 L code = 698) PH, BLOOD (BEAKER) (test code = 7.35 1810) CBC W/PLT COUNT & AUTO [id number] 15:15:00 Test Item Value Reference Range Interpretation [...] PERCENT (BEAKER) (test code = 2801) POCT-GLUCOSE [id number] 12:54:00 Test Item Value Reference Range Interpretation Comments POC-GLUCOSE METER 111 mg/dL 70-110 H TESTED AT [facility] 6720 (BEAKER) (test code = [place] 1538) [address] SPUTUM CULTURE + GRAM [id number] 10:56:00 Test Item Value Reference Range Interpretation Comments CULTURE (BEAKER) 3+ Normal respiratory (test code = 1095) tre present GRAM STAIN RESULT 3+ White blood cells (BEAKER) (test code = seen 1123) GRAM STAIN RESULT 0-5 epithelial cells (BEAKER) (test code = 26737) GRAM STAIN RESULT <1+ gram negative rods (BEAKER) (test code = 687[address]) GRAM STAIN RESULT <1+ gram positive rods (BEAKER) (test code = 505893) GRAM STAIN RESULT <1+ gram positive cocci (BEAKER) (test code = in clusters 509032) TACROLIMUS [id number] 10:34:00 Test Item Value Reference Range Interpretation Comments TACROLIMUS BLOOD (BEAKER) (test 9.2 ng/mL 10.0-20.0 L code = 657) BLOOD GAS, [id number] 08:45:00 Test Item Value Reference Range Interpretation [...] (test code = 1819) 40.0 % CALCIUM, [id number] 07:52:00 Test Item Value Reference Range Interpretation Comments CALCIUM IONIZED (BEAKER) (test 1.01 mmol/L 1.12-1.27 L code = 698) PH, BLOOD (BEAKER) (test code = 7.41 1810) Check serum Ionized Calcium level after 4 hours after IV Calcium replacement. BASIC METABOLIC [id number] 06:54:00 Test Item Value Reference Range Interpretation [...] APPLICABLE FOR DIALYSIS PATIEN TS. HEPATIC FUNCTION [id number] 06:14:00 Test Item Value Reference Range Interpretation [...] 96 U/L 6-55 H 347) VANCOMYCIN LEVEL, [id number] 06:12:00 Test Item Value Reference Range Interpretation Comments VANCOMYCIN TROUGH (BEAKER) (test 17.7 ug/mL 10.0-20.0 code = 522) HEPATITIS PANEL, [id number] 01:10:00 Test Item Value Reference Range Interpretation Comments HEPATITIS A IGM ANTIBODY (BEAKER) Nonreactive Nonreactive (test code = 498) HEPATITIS B CORE IGM ANTIBODY Nonreactive Nonreactive (BEAKER) (test code = 645) HEPATITIS C ANTIBODY (BEAKER) Nonreactive Nonreactive (test code = 367) HEPATITIS B SURFACE ANTIGEN (2) Nonreactive Nonreactive (BEAKER) (test code = 2585) BLOOD GAS, [id number] 23:35:00 Test Item Value Reference Range Interpretation [...] % 30 minutes after sodium bicarbonate administration.CALCIUM, [id number] 20:10:00 Test Item Value Reference Range Interpretation Comments CALCIUM IONIZED (BEAKER) (test 1.02 mmol/L 1.12-1.27 L code = 698) PH, BLOOD (BEAKER) (test code = 7.38 1810) BLOOD GAS, [id number] 20:09:00 Test Item Value Reference Range Interpretation [...] (BEAKER) (test code = 1819) 40.0 % [id number] 17:27:00 Test Item Value Reference Range Interpretation Comments HAPTOGLOBIN (BEAKER) (test code = 86 mg/dL 14-258 366) CREATININE, RANDOM [id number] 16:05:00 Test Item Value Reference Range Interpretation Comments CREATININE URINE (BEAKER) (test 53.1 mg/dL code = 375) Reference Range: No NormalsPOTASSIUM, RANDOM [id number] 16:05:00 Test Item Value Reference Range Interpretation Comments POTASSIUM URINE (BEAKER) (test 48.4 meq/L code = 195) Reference Range: No NormalsPROTEIN, RANDOM [id number] 16:05:00 Test Item Value Reference Range Interpretation Comments PROTEIN, URINE (BEAKER) (test code = 9 mg/dL 0-14 1569) SODIUM, RANDOM [id number] 16:05:00 Test Item Value Reference Range Interpretation Comments SODIUM URINE (BEAKER) (test code = 64 meq/L 243) Reference Range: No NormalsURINALYSIS W/ [id number] 16:02:00 Test Item Value Reference Range Interpretation [...] 1574) SOURCE(BEAKER) (test code = Urine, Voided 3295) CREATINE KINASE (CK)2017-12-28 15:27:00 Test Item Value Reference Range Interpretation Comments CREATINE KINASE TOTAL (BEAKER) (test 133 U/L 29-200 code = 380) [id number] 15:26:00 Test Item Value Reference Range Interpretation Comments POTASSIUM (BEAKER) (test code = 4.6 meq/L 3.5-5.1 379) [id number] 15:26:00 Test Item Value Reference Range Interpretation Comments MAGNESIUM (BEAKER) (test code = 2.2 mg/dL 1.6-2.6 627) [id number] 15:26:00 Test Item Value Reference Range Interpretation Comments PHOSPHORUS (BEAKER) (test code = 4.1 mg/dL 2.3-4.7 604) CALCIUM, [id number] 14:59:00 Test Item Value Reference Range Interpretation Comments CALCIUM IONIZED (BEAKER) (test 0.98 mmol/L 1.12-1.27 L code = 698) PH, BLOOD (BEAKER) (test code = 7.42 1810) [id number] 12:31:00 Test Item Value Reference Range Interpretation Comments PROCALCITONIN (BEAKER) (test code = > ng/mL <0.05 3036) SEPSIS RISK (ng/mL)Low: 0.05-0.50Intermediate: 0.51-2.00High: >=2.01 IMMUNOGLOBULIN G (IGG)2017-12-28 12:15:00 Test Item Value Reference Range Interpretation Comments IMMUNOGLOBULIN G (IGG) (BEAKER) (test < mg/dL 540-1822 L code = 427) CBC W/PLT COUNT & AUTO [id number] 11:41:00 Test Item Value Reference Range Interpretation [...] MDReport Verified Date/Time: 12/28/2017 10:56:56 Reading Location: [facility] B1 C013X Ortho Consult Reading Room HEPATIC FUNCTION [id number] 10:02:00 Test Item Value Reference Range Interpretation [...] 125-220 H code = 635) HEPATIC FUNCTION [id number] 09:38:00 Test Item Value Reference Range Interpretation [...] = 109 U/L 6-55 H 347) TACROLIMUS [id number] 08:50:00 Test Item Value Reference Range Interpretation Comments TACROLIMUS BLOOD (BEAKER) (test 11.2 ng/mL 10.0-20.0 code = 657) [id number] 08:44:00 Test Item Value Reference Range Interpretation Comments CORTISOL, TOTAL (BEAKER) (test 16.7 ug/dL 3.7-19.4 code = 2755) BASIC METABOLIC [id number] 07:08:00 Test Item Value Reference Range Interpretation [...] APPLICABLE FOR DIALYSIS PATIEN TS. VANCOMYCIN LEVEL, [id number] 06:47:00 Test Item Value Reference Range Interpretation Comments VANCOMYCIN RANDOM (BEAKER) (test 13.8 ug/mL code = 523) Reference Range: No [id number] 06:23:00 Test Item Value Reference Range Interpretation Comments MAGNESIUM (BEAKER) (test code = 1.7 mg/dL 1.6-2.6 627) BLOOD GAS, [id number] 06:07:00 Test Item Value Reference Range Interpretation [...] 1819) 100.0 % LACTIC ACID, ARTERIAL, WHOLE [id number] 05:20:00 Test Item Value Reference Range Interpretation Comments LACTATE BLOOD ARTERIAL (2) 3.1 mmol/L 0.5-2.2 H (BEAKER) (test code = 2874) Effective 11/02/2015: Units/Reference Range ChangeNew: 0.5-2.2 mmol/L Previous: 5- 20 mg/dLLACTIC ACID, VENOUS, WHOLE [id number] 23:10:00 Test Item Value Reference Range Interpretation Comments LACTATE BLOOD VENOUS (2) (BEAKER) 4.1 mmol/L 0.5-2.2 H (test code = 2872) Effective 11/02/2015: Units/Reference Range ChangeNew: 0.5-2.2 mmol/L Previous: 5- 20 mg/[id number] 23:09:00 Test Item Value Reference Range Interpretation Comments POTASSIUM (BEAKER) (test code = 5.0 meq/L 3.5-5.1 379) BLOOD GAS, [id number] 22:54:00 Test Item Value Reference Range Interpretation [...] C (test code = 1818) U/S, ABDOMINAL, [id number] 22:00:00Abdomen limited area? Add comment if clarification is needed.->Right upper quadrantReason for exam:->Ascites, hepatosplenomegalyShould this be performed at the bedside?->YesFINAL REPORT Comparison exam: Abdominal ultrasound 03/09/2015 The liver is normalin size, morphology, and echotexture. Gallstones. Gallbladder wall thickening. Questionable sonographic Baltazar's sign. No intrahepatic biliary ductal dilatation. Normal IVC and hepatic veins. Incomplete visualization of the pancreas.Normal aorta.Normal right kidney. Small volume ascites. Bilateral pleu ral effusions. The measurements are as follows: Liver [...] Verified Date/Time: 12/27/2017 22:00:32 Reading Location: [address] Consult Reading Room RAD, CHEST, 1 VIEW, NON [id number] 19:03:00Reason for exam:->eval pulmonary congestion/dyspneaShould this be [...] MDReport Verified Date/Time: 12/27/2017 19:03:45 Reading Location: [address] Reading Room BLOOD GAS, [id number] 18:29:00 Test Item Value Reference Range Interpretation [...] 21.0 % RAD, CHEST, 1 VIEW, NON [id number] 15:36:00Reason for exam:->RUE picc line placement Should [...] technique with sternotomy wires.. Signed: Jad Isaac [facility]ENTER[facility]ort Verified Date/Time: 12/27/2017 15:36:05 Reading Location: [facility] Consult Reading Room BASIC METABOLIC PANEL 2017-12-27 14:47:00 Test Item Value Reference Range Interpretation [...] DIALYSIS PATIEN TS. LACTIC ACID, ARTERIAL, WHOLE [id number] 14:33:00 Test Item Value Reference Range Interpretation Comments LACTATE BLOOD ARTERIAL (2) 4.2 mmol/L 0.5-2.2 H (BEAKER) (test code = 2874) Effective 11/02/2015: Units/Reference Range ChangeNew: 0.5-2.2 mmol/L Previous: 5- 20 mg/dLBLOOD GAS, [id number] 14:11:00 Test Item Value Reference Range Interpretation [...] (test code = 1819) 21.0 % PROTHROMBIN [id number] 11:17:00 Test Item Value Reference Range Interpretation Comments PROTIME (BEAKER) (test code = 23.8 seconds 11.7-14.7 H 759) INR (BEAKER) (test code = 370) 2.1 <=5.9 RECOMMENDED COUMADIN/WARFARIN INR THERAPY RANGESSTANDARD DOSE: 2.0 - 3.0 Includes: PROPHYLAXIS for venous thrombosis, systemic embolization; TREATMENT for venous thrombosis and/or pulmonary embolus.HIGH RISK: Target INR is 2.5-3.5 for patients with mechanical heart valves.[id number] 11:17:00 Test Item Value Reference Range Interpretation Comments FIBRINOGEN LEVEL (BEAKER) (test 337 mg/dl 225-434 code = 658) CBC W/PLT COUNT & AUTO [id number] 11:13:00 Test Item Value Reference Range Interpretation [...] Received comment: User comments: Slide comments:RESPIRATORY PANEL [id number] 10:38:00 Test Item Value Reference Range Interpretation Comments HUMAN METAPNEUMOVIRUS Not detected Not detected, (BEAKER) (test code = Inconclusive 6263) RHINOVIRUS (BEAKER) (test Not detected Not detected, code = 2684) Inconclusive INFLUENZA A (BEAKER) (test Not detected Not detected, code = 7385) Inconclusive INFLUENZA A SUBTYPE H1 Not detected Not detected, (BEAKER) (test code = Inconclusive 2686) INFLUENZA A SUBTYPE H3 Not detected Not detected, (BEAKER) (test code = Inconclusive 2687) INFLUENZA A SUBTYPE Not detected Not detected, H1-2009 (BEAKER) (test Inconclusive code = 3198) INFLUENZA B (BEAKER) (test Not detected Not detected, code = 9278) Inconclusive RESPIRATORY SYNCYTIAL Not detected Not detected, [...] (BEAKER) (test code = Inconclusive 3207) TACROLIMUS [id number] 08:44:00 Test Item Value Reference Range Interpretation Comments TACROLIMUS BLOOD (BEAKER) (test 12.2 ng/mL 10.0-20.0 code = 657) [id number] 08:35:00 Test Item Value Reference Range Interpretation Comments MAGNESIUM (BEAKER) (test code = 1.7 mg/dL 1.6-2.6 627) CALCIUM, [id number] 06:59:00 Test Item Value Reference Range Interpretation Comments CALCIUM IONIZED (BEAKER) (test 1.05 mmol/L 1.12-1.27 L code = 698) PH, BLOOD (BEAKER) (test code = 7.35 1810) Check serum Ionized Calcium level after 4 hours after IV Calcium replacement. BASIC METABOLIC [id number] 06:02:00 Test Item Value Reference Range Interpretation [...] DIALYSIS PATIEN TS. LACTIC ACID, VENOUS, WHOLE [id number] 05:50:00 Test Item Value Reference Range Interpretation Comments LACTATE BLOOD VENOUS (2) (BEAKER) 5.9 mmol/L 0.5-2.2 H (test code = 2872) Effective 11/02/2015: Units/Reference Range ChangeNew: 0.5-2.2 mmol/L Previous: 5- 20 mg/dLBLOOD GAS, [id number] 05:29:00 Test Item Value Reference Range Interpretation [...] code = 1819) 21.0 % STREP PNEUMONIAE [id number] 04:39:00 Test Item Value Reference Range Interpretation [...] the detection limit of the test.LEGIONELLA ANTIGEN, [id number] 04:39:00 Test Item Value Reference Range Interpretation Comments L. PNEUMOPHILA Negative - see Negative fo r L. SEROGP 1 UR AG comment pneumophila (BEAKER) (test code serogrou p 1 antigen, = 1156) suggesting no r ecent or current infe ction with this serog roup. Legionellosis c annot be ruled out si nce other serogroup s and species may cau se disease. [id number] 02:38:00 Test Item Value Reference Range Interpretation Comments POTASSIUM (BEAKER) (test code = 5.2 meq/L 3.5-5.1 H 379) LACTIC ACID, ARTERIAL, WHOLE [id number] 02:38:00 Test Item Value Reference Range Interpretation Comments LACTATE BLOOD 6.1 mmol/L 0.5-2.2 H Specimen sligh tly ARTERIAL (2) (BEAKER) hemoly zed (test code = 2874) Effective 11/02/2015: Units/Reference Range ChangeNew: 0.5-2.2 mmol/L Previous: 5- 20 mg/dLBLOOD GAS, [id number] 02:17:00 Test Item Value Reference Range Interpretation [...] code = 1819) 100.0 % BASIC METABOLIC [id number] 01:24:00 Test Item Value Reference Range Interpretation [...] S NOT APPLICABLE FOR DIALYSIS PATIEN TS. [id number] 01:12:00 Test Item Value Reference Range Interpretation Comments MAGNESIUM (BEAKER) (test code = 1.2 mg/dL 1.6-2.6 L 627) LACTIC ACID, VENOUS, WHOLE [id number] 01:04:00 Test Item Value Reference Range Interpretation Comments LACTATE BLOOD VENOUS (2) (BEAKER) 6.2 mmol/L 0.5-2.2 H (test code = 2872) Effective 11/02/2015: Units/Reference Range ChangeNew: 0.5-2.2 mmol/L Previous: 5- 20 mg/dLCALCIUM, [id number] 00:32:00 Test Item Value Reference Range Interpretation Comments CALCIUM IONIZED (BEAKER) (test 1.05 mmol/L 1.12-1.27 L code = 698) PH, BLOOD (BEAKER) (test code = 7.22 1810) BLOOD GAS, [id number] 00:31:00 Test Item Value Reference Range Interpretation [...] code = 1819) 21.0 % HEMOGLOBIN AND [id number] 00:28:00 Test Item Value Reference Range Interpretation [...] PATIEN TS. CBC W/PLT COUNT & AUTO [id number] 22:18:00 Test Item Value Reference Range Interpretation [...] code = 413) LACTIC ACID, VENOUS, WHOLE [id number] 22:08:00 Test Item Value Reference Range Interpretation Comments LACTATE BLOOD VENOUS (2) (BEAKER) 9.1 mmol/L 0.5-2.2 H (test code = 2872) Effective 11/02/2015: Units/Reference Range ChangeNew: 0.5-2.2 mmol/L Previous: 5- 20 mg/dLRAD, CHEST, 1 VIEW, NON [id number] 21:46:00Reason for exam:->SOB FINAL REPORT RAD, CHEST, 1 VIEW, NON DEPT INDICATION: SOB COMPARISON: Prior day's exam FINDINGS: Portable frontal view of the chest. IMPRESSION: Support Lines: None. Lungs and pleura: Bibasilar subsegmental atelectasis. Right basilar consolidation, concerning for developing pneumonia. Trace bilateral effusions. No pneumothorax.Heart and mediastinum: Stable contours. Stable surgical changes.Additional findings: None. Signed: JR Rizzo Robert MDRepjessica Verified Date/Time: 12/26/2017 21:46:39 Reading Location: [address] Reading Room TACROLIMUS [id number] 15:12:00 Test Item Value Reference Range Interpretation Comments TACROLIMUS BLOOD (BEAKER) (test 11.5 ng/mL 10.0-20.0 code = 657) [id number] 11:00:00 Test Item Value Reference Range Interpretation Comments MAGNESIUM (BEAKER) (test code = 1.9 mg/dL 1.6-2.6 627) BASIC METABOLIC [id number] 11:00:00 Test Item Value Reference Range Interpretation [...] PATIEN TS. CBC W/PLT COUNT & AUTO [id number] 10:42:00 Test Item Value Reference Range Interpretation [...] PERCENT (BEAKER) (test code = 2801) BLOOD [id number] 13:27:00 Test Item Value Reference Range Interpretation Comments CULTURE (BEAKER) (test No growth in 5 days code = 1095) SPUTUM CULTURE + GRAM [id number] 13:39:00 Test Item Value Reference Range Interpretation Comments CULTURE (BEAKER) 2+ Normal respiratory (test code = 1095) tre present GRAM STAIN RESULT 3+ WBCs (BEAKER) (test code = 1123) GRAM STAIN RESULT 0-5 epithelial cells (BEAKER) (test code = 38755) GRAM STAIN RESULT No organisms seen (BEAKER) (test code = 44110) TACROLIMUS [id number] 09:48:00 Test Item Value Reference Range Interpretation Comments TACROLIMUS BLOOD (BEAKER) (test 7.3 ng/mL 10.0-20.0 L code = 657) BASIC METABOLIC [id number] 06:43:00 Test Item Value Reference Range Interpretation [...] PATIEN TS. CBC W/PLT COUNT & AUTO [id number] 06:41:00 Test Item Value Reference Range Interpretation [...] K/ L 0.00-0.20 (test code = 417) [facility] [id number] 12:16:00 Test Item Value Reference Range Interpretation Comments TACROLIMUS BLOOD (BEAKER) (test 7.3 ng/mL 10.0-20.0 L code = 657) CBC W/PLT COUNT & AUTO [id number] 07:26:00 Test Item Value Reference Range Interpretation [...] 0.00-0.20 (test code = 417) 0.00BASIC METABOLIC [id number] 06:50:00 Test Item Value Reference Range Interpretation [...] DIALYSIS PATIEN TS. SPUTUM CULTURE + GRAM [id number] 15:49:00 Test Item Value Reference Range Interpretation Comments CULTURE (BEAKER) Oropharyngeal (test code = 1095) contamination, specimen rejected. Recollect requested. GRAM STAIN RESULT 3+ White blood cells seen (BEAKER) (test code = 1123) GRAM STAIN RESULT >25 epithelial cells (BEAKER) (test code = 36718) GRAM STAIN RESULT <1+ gram negative rods (BEAKER) (test code = 91723) TACROLIMUS [id number] 13:39:00 Test Item Value Reference Range Interpretation Comments TACROLIMUS BLOOD (BEAKER) (test 6.1 ng/mL 10.0-20.0 L code = 657) RESPIRATORY PANEL [id number] 13:06:00 Test Item Value Reference Range Interpretation Comments HUMAN METAPNEUMOVIRUS Not detected Not detected, (BEAKER) (test code = Inconclusive 7361) RHINOVIRUS (BEAKER) (test Not detected Not detected, [...] (BEAKER) (test code = Inconclusive 3207) TACROLIMUS [id number] 11:17:00 Test Item Value Reference Range Interpretation Comments TACROLIMUS BLOOD (BEAKER) (test 5.9 ng/mL 10.0-20.0 L code = 657) BASIC METABOLIC [id number] 07:20:00 Test Item Value Reference Range Interpretation [...] PATIEN TS. CBC W/PLT COUNT & AUTO [id number] 07:16:00 Test Item Value Reference Range Interpretation [...] = 417) 0.00CREATINE KINASE (CK), TOTAL AND [id number] 18:57:00 Test Item Value Reference Range Interpretation Comments CREATINE KINASE TOTAL (BEAKER) 35 U/L 29-200 (test code = 380) CREATINE KINASE-MB (BEAKER) (test 0.9 ng/mL 0.0-6.6 code = 750) CREATINE KINASE-MB INDEX (BEAKER) 2.6 % (test code = 395) Effective 05/18/2014: CK-MB Reference Range ChangeNew: 0.0-6.6 Previous: 0.0-4.9CK-MB Reference Range:<6.7 Normal6.7-10.0 Borderline>10.0 Abnormal TROPONIN [id number] 18:57:00 Test Item Value Reference Range Interpretation Comments TROPONIN I (BEAKER) (test code = 397) < ng/mL 0.00-0.03 Effective 05/18/2014: Reference Range ChangeNew: 0.00-0.03 Previous 0.00- 0.15Troponin I (TnI) levelsmust be interpreted in the context of the [...] 0-100 (test code = 700) BASIC METABOLIC [id number] 18:50:00 Test Item Value Reference Range Interpretation [...] S NOT APPLICABLE FOR DIALYSIS PATIEN TS. [id number] 18:50:00 Test Item Value Reference Range Interpretation Comments PROTIME (BEAKER) (test code = 15.2 seconds 11.7-14.7 H 759) INR (BEAKER) (test code = 370) 1.2 <=5.9 PARTIAL THROMBOPLASTIN TIME 33.6 seconds 22.5-36.0 (BEAKER) (test code = 760) RECOMMENDED COUMADIN/WARFARIN INR THERAPY RANGESSTANDARD DOSE: 2.0 - 3.0 Includes: PROPHYLAXIS for venous thrombosis, systemic embolization; TREATMENT for venous thrombosis and/or pulmonary embolus.HIGH RISK: Target INR is 2.5-3.5 for patients with mechanical heart valves.CBC W/PLT COUNT & AUTO [id number] 18:47:00 Test Item Value Reference Range Interpretation [...] code = 417) 0.00LACTIC ACID, VENOUS, WHOLE [id number] 18:46:00 Test Item Value Reference Range Interpretation Comments LACTATE BLOOD VENOUS 1.7 mmol/L 0.5-2.2 Specime n moderately (2) (BEAKER) (test hemolyzed code = 2872) Effective 11/02/2015: Units/Reference Range ChangeNew: 0.5-2.2 mmol/L Previous: 5- 20 mg/dL
--- NOTE | 2022-07-29 14:21 | RAD REPORT ---
EXAM DESCRIPTION: RAD - Tib Fib Left - 07/29/2022 2:07 pm CLINICAL HISTORY: PAIN COMPARISON: No comparisons FINDINGS/IMPRESSION: No acute fracture. No malalignment. No significant focal degenerative changes.
--- NOTE | 2022-07-29 14:22 | RAD REPORT ---
EXAM DESCRIPTION: RAD - Clavicle Left - 07/29/2022 2:07 pm CLINICAL HISTORY: PAIN COMPARISON: No comparisons FINDINGS/IMPRESSION: Mildly superiorly angulated left mid clavicle fracture. Displacement is minimal . No other fractures identified. Left shoulder is located. Sternotomy.
--- NOTE | 2022-07-29 14:23 | RAD REPORT ---
EXAM DESCRIPTION: RAD - Hand Left 3 View - 07/29/2022 2:07 pm CLINICAL HISTORY: PAIN COMPARISON: No comparisons FINDINGS/IMPRESSION: Fracture at the base of the fifth distal phalanx. The fracture extends to the D IP joint. The fracture is only minimally displaced .
--- NOTE | 2022-07-29 14:23 | RAD REPORT ---
EXAM DESCRIPTION: US - Extremity Venous Uni Ltd - 07/29/2022 1:56 pm CLINICAL HISTORY: Pain COMPARISON: None. TECHNIQUE: Real-time sonographic evaluation of the left lower extremity deep venous system was perfo rmed. FINDINGS: Normal compressibility, flow augmentation, phasic flow and spontaneous flow is identified in the left lower extremity deep venous system. No intraluminal filling defects seen. IMPRESSION: No DVT in the left lower extremity.
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
[2022-07-29] MEDS ORDERED: CEPHALEXIN 250 MG CAP ONE (15:24)
[2022-07-29] MEDS ORDERED: SMZ./TMP. 800/160 MG TABLET ONE (15:24)
[2022-07-29 16:11] VITALS: BP 101/54; TEMP 97.3; O2SAT 100
== END 2022-07-29 15:39 | disposition home or self-care (01) ==
LOC: ER 12:23
PROC: 2W3KX1Z Immobilization of Left Finger using Splint (ICD-10-PCS; principal; 2022-07-29)
DX: S42.022A Displaced fracture of shaft of left clavicle, initial encounter for closed fracture (principal); S62.522A Displaced fracture of distal phalanx of left thumb, initial encounter for closed fracture; S60.512A Abrasion of left hand, initial encounter; S80.212A Abrasion, left knee, initial encounter; L08.9 Local infection of the skin and subcutaneous tissue, unspecified
CPT/HCPCS: 93971; 99284

== ENCOUNTER 2022-08-04 01:25 | Emergency (ER) | payer OTHER ==
[2022-08-04] MEDS ORDERED: D50W 25 GM/50 ML SYRINGE IV ONE (01:37)
[2022-08-04 01:52] LABS: Absolute Lymphocytes (CBC) 0.1 K/uL (0.7-4.9); Hematocrit 23.8 % (39.6-49.0); Lymphocytes % 1.3 % (15.3-44.8); MCV 109.3 fL (80-100); MPV 10.3 fL (7.6-11.3); RBC Red Blood Cell Count 2.17 M/uL (4.33-5.43)
--- OUTSIDE RECORDS SUMMARY | 2022-08-04 01:57 | XMS REPORT | Continuity of Care Document ---
:1955 Author Organization [facility] t Address [address] [place] [address] Care Team Providers Name Role Phone PCP, PATIENT DOES NOT HAVE A Primary Care Physician UnavailTEODORA Amezcua Attending Clinician Unavailable MIGUELINA FRIAS Attending Clinician Unavailable Melvin Barrett Attending Clinician Unavailable Gianluca HERCULES, Ann Le Attending Clinician Jodie ARGUETA, Sylvester Attending Clinician Diane Eastman MD Attending Clinician Lucia ARGUETA, Roman Johnston Attending Clinician [phone] Daniel HERCULES, July Attending Clinician Sandra Ackerman RN Attending Clinician Unavailable Maddy ARGUETA, July Sol Attending Clinician Ginny ARGUETA, Pb Guerra Attending Clinician Que ARGUETA, Chandra Attending Clinician Cyrus Brannon MD Attending Clinician [phone] Vijay ARGUETAChristiano Attending Clinician CYRUS BRANNON Attending Clinician Unavailable ROMAN MYERS Attending Clinician Unavailable Jason BARLOW, Brook Peguero Attending Clinician SYLVESTER FELICIANO Attending Clinician Unavailable PHYLLIS POOLE Attending Clinician Unavailable OSIRIS DIAZ Attending Clinician Unavailable Provider, [facility] Attending Clinician Unavailable Evita Farrell RN Attending Clinician Unavailable RUPINDER STREETER Attending Clinician Unavailable JULY HENNESSY Attending Clinician Unavailable PB GROSS Attending Clinician Unavailable JERILYN HOLDEN Attending Clinician Unavailable MARIZOL FAITH Attending Clinician Unavailable RNADY ONOFRE Attending Clinician Unavailable BEVERLY DURON Attending [...] Clinician Unavailable Jordi Serrano MD Attending Clinician [phone] DENILSON RAZA Attending Clinician Unavailable FABRICE FERRER Attending Clinician Unavailable TEODORA HERNANDEZ Admitting Clinician Unavailable TOOTIE MOLINA Admitting Clinician Unavailable MELLISSA MARTÍNEZ Admitting Clinician Unavailable SARAH BATISTA Admitting Clinician Unavailable QIAN JAIN Admitting Clinician Unavailable DAVE CHANEY Admitting Clinician Unavailable LIANA CORONEL V. Admitting Clinician Unavailable CHRISTIANO SEE Admitting Clinician Unavailable TON VICTORIA Admitting Clinician Unavailable DIANE EASTMAN Admitting Clinician Unavailable JORDI SERRANO Admitting Clinician Unavailable ROBERT URIAS Admitting Clinician Unavailable FRANKLIN SALDIVAR Admitting Clinician Unavailable Payers Payer Name Policy Type Policy Number Effective Date Expiration Date S luis fernando FORMERLY [facility] STAR [id number] 2018 PLAN 00:00:00 CDC REVIEW [id number] 2019 00:00:00 MEDICAID [facility] [id number] 2017 00:00:00 MEDICARE PART A & [id number] 2022 B 00:00:00 [facility] [id number] 2020 PLAN SSI 00:00:00 NORM CARE - [id number] GENERIC - NORM CARE [facility]-MEDICAID - [id number] 2017 2018 MEDICAID 00:00:00 00:00:00 [place] - [id number] [facility] [id number] HMO-MARKETPLACE - BCBS [id number] [facility] [id number] GENERIC O - [id number] GENERIC PAYOR OPT NONM [facility] [id number] 2020 STAR 00:00:00 Problems Condition Condition Condition Status Onset Resolution Last Treating Co mments Source Name Details Category Date Date Treatment Clinician Date Lesion of Lesion of Disease Active [facility] pancreas pancreas 8-16 [facility] Center 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 Added automatic ally from request for surgery [id number] Anemia Anemia Disease Active [facility] 5-12 [...] ia ia 2-24 [facility] 00:00: Medical 00 Gause Stage 3b Stage 3b Disease Active 2019-07 [...] Vicky kes athy athy 00:00: Medical 00 [place]ause Varices of Varices of Disease Active 2019-[address] esophagus esophagus 2-18 [facility] determined determined 00:00: Me dical by by 00 Center endoscopy endoscopy CKD CKD Disease Active 2019-07 [facility] (chronic (chronic 2-07 Colleg e kidney kidney 00:00: of disease) disease) 00 Medici n stage 5, stage 5, e GFR less GFR less than 15 than 15 ml/min ml/min Cirrhosis Cirrhosis Disease Active 2019-07 [facility] of liver of liver 2-07 Colleg e with with 00:00: of ascites ascites 00 Medicin e Lung Lung Disease Active 2019-07 [facility] transplant transplant 2-07 Co llege recipient recipient 00:00: of 00 Medicin e Pre-transp Pre-transp Disease Active 2020-[address] lant lant 0-07 [facility] evaluation evaluation 00:00: t & Plan: Medical for liver for liver 00 Formattin C enter transplant transplant g of this note might be different from the original. He will be considere d a high risk candidate due to his social history s/p lung transplan t. He will require routine imaging/t esting and official review at [facility] for official candidacy . CKD CKD Disease Active 2019-07 [facility] (chronic (chronic 0-07 Ass[facility]men Shanta es kidney kidney 00:00: t & Plan: Medical disease) disease) [facility] of this note might be different from the original. He has CKD and does not currently require dialysis but has required it in the past. He will continue follow up with nephrolog y. Impaired Impaired Disease Active 2019-07 [facility] ambulation ambulation 0-07 Assessmen kes 00:00: t & Plan: Medical 00 [facility] g of this note might be different from the original. He will benefit from home physical therapy. He states that he has issues with his ambulatio n while ambulatin g at home. Drug use Drug use Disease Active 2019-07 [facility] 0-07 [facility] 00:00: t & Plan: Medical 00 [facility] g of this note might be different from the original. He states that he consumes "marijuan a gummies" for anxiety. He was instructe d to abstain from consuming marijuana containin g treats. Volume Volume Disease Active [facility] overload overload 8-25 [facility] 00:00: Medical [address] [place] [address] NOHEMI (acute NOHEMI (acute Disease Active [facility] kidney kidney 8-25 [facility] injury) injury) 00:00: Medical [address] [place] [address] Dyspnea Dyspnea Disease Active [facility] St and and 6-11 [facility] respirator respirator 00:00: Me dical y y 00 Gause abnormalit abnormalit y y Portal Portal Disease Active [facility] St hypertensi hypertensi 5-07 [facility] on on 00:00: t & Plan: Medical 00 [facility] g of this note might be different from the original. Portal hypertens ion with evidence by ascites (s/p TIPs), varices and splenomeg jackelyn. S/P TIPS S/P TIPS Disease Active 2020-0 [facility] (transjugu (transjugu 3-02 Vicky kes lar lar 00:00: Medical intrahepat intrahepat 00 Ce nter ic ic portosyste portosyste apoorva shunt) apoorva shunt) Scrotal Scrotal Disease Active [facility] swelling swelling 2-23 [facility] 00:00: Medical 00 Center Esophageal Esophageal Disease Active [facility] ulcer ulcer 1-29 [facility] 00:[facility]: Medical 00 Center Sarcopenia Sarcopenia Disease Active 2018-[address] 1-07 [facility] 00:[facility]: Medical 00 Center Hypotensio Hypotensio Disease Active 2018-[address] n due to n due to 107 [facility] drugs drugs 00:00: Medical 00 Gause Chest Chest Disease Active 2018-[address] [facility] [facility] discomfort discomfort 0-23 Vicky kes 00:00: Medical 00 Center Other Other Disease Active Last [facility] cirrhosis cirrhosis 6-07 Assessraul ching of liver of liver 00:00: t & Plan: Med ical 00 [facility] Center g of this note might be different from the original. His liver biopsy in August indicated fibrosis stage 4 of 4, consisten t with cirrhosis . Chronic Chronic Disease Active [facility] diarrhea diarrhea 6-07 [facility] 00:[facility]: Medical 00 Center Cancer Cancer Disease Active [facility] screening screening 6-07 [facility] s 00:00: Medical 00 Gause Acute on Acute on Disease Active [facility] [...] 00 Ce nter Chronic Chronic Disease Active [facility] diarrhea diarrhea 7-15 Colleg e 00:00: of 00 Medicin e Elevated Elevated Disease Active [facility] liver liver 6-23 [facility] enzymes enzymes 00:00: Medical 00 Center Ascites Ascites Disease Active [facility] 6-23 [facility] 00:00: Medical 00 Center Pneumonia Pneumonia Disease Active [facility] 5-06 [facility] 00[facility]: Medical 00 Center Diarrhea Diarrhea Disease Active [facility] 2-26 [facility] 00:[facility]: Medical 00 Center Abdominal Abdominal Disease [...] Last [facility] Lung Lung 7- [facility] Transplant Transplant 00:00: t & Plan: Medical 00 Formattin Center g of this note might be different from the original. He required a double lung transplan t in 2012 secondary to CVID c/b extensive bronchiec tasis. He will continue follow up with pulmonary . Bronchiect Bronchiect Disease Active 2011-[address] asis asis 1-07 [facility] 00:00: Medical 00 Gause GERD GERD Disease Active 2011-[address] (gastroeso (gastroeso 07 Vicky kes phageal phageal 00:00: Medical reflux reflux 00 Center disease) disease) CVID CVID Disease Active 2011-[address] [facility] (common (common 07-07 [facility] variable variable 00:00: Medica l immunodefi immunodefi 00 Ce nter ciency) ciency) COPD COPD Disease Active 2011-[address] [facility] (chronic (chronic 07 [facility] obstructiv obstructiv 00:00: Me dical e e 00 Center pulmonary pulmonary disease) disease) Anxiety Anxiety Disease Active 2011-07 [facility] 0-16 Assessmen College 00:00: t & Plan: [...] daily dosing. Common Common Disease Active Last [facility] variable variable 4-23 Assessmen Col lege immunodefi immunodefi 00:00: t & Plan: of ciency ciency 00 Formattin Medicin g of this e note might be different from the original. IVIG infusions continue. Acute Acute Disease Active [facility] respirator respirator Vicky kes y distress y distress [facility] Cardiac Cardiac Disease Active [facility] arrest arrest [facility] ATYPICAL ATYPICAL Disease Active [facility] r MYCOBACTER [facility] Co llege IAL IAL of INFECTION INFECTION Medi michaela e SINUSITIS, SINUSITIS, Disease Active [facility] CHRONIC College of Medicin e Allergies, Adverse Reactions, Alerts Allergy Allergy Status Severity Reaction(s) Onset Inactive Treating Comm ents Source Name Type Date Date Clinician NO KNOWN Drug Active Univers ALLERGIE Class ity of S [facility] NO KNOWN Allergy Active [facility] ALLERGIE S Family History Family Member Diagnosis Comments Start Date Stop Date Source Natural brother Hypertension [facility] Natural father Cancer [facility] Natural mother Cancer [facility] Paternal aunt Cancer [facility] Social History Social Habit Start Date Stop Date Quantity Comments Source Exposure to 2022-07-03 2022-07-13 Not sure [facility] SARS-CoV-2 (event) 00:00:00 14:19:00 Alcohol intake 2022-01-16 2022-01-16 Current [facility] St Shanta es 00:00:00 00:00:00 non-drinker of Medical Ce nter alcohol (finding) Cigarettes smoked 2012-06-16 2012-06-[address] [facility] current (pack per 00:00:00 00:00:00 Medical Center day) - Reported Cigarette 2012-06-16 2012-06-[address] [facility] [address] [facility] pack-years 00:00:00 00:00:00 [facility] Tobacco use and 2012-06-16 2012-06-[address] [facility] [facility] Vicky kes exposure 00:00:00 00:00:00 Medical Center History of tobacco 2004-10-25 Cigarette Smoker [facility] use 00:00:00 of Medicine Sex [birth year] MELODY Dozier 00:00:00 00:00:00 Medical Center Smoking Status Start Date Stop Date Source Unknown if ever smoked [facility] Ex-smoker 2021-01-18 00:00:00 2021-01-18 00:00:00 Jhonatan vasquez Medications Ordered Filled Start Stop Current Ordering Indication Dosage Frequency Signature Comments Components Source Medication Medication Date Date Medication? Clinician (SIG) Name Name ketoconazol Yes Seborrheic Q.5D Apply to [facility] (NIZORAL) 07-13 dermatitis affected Health 2 % topical 00:00: area 2 cream 00 times daily For rash on face triamcinolo Yes Lichen Q.5D Apply to [facility] 07-13 simplex affected Health (KENALOG) 00:00: chronicus area 2 0.1 % 00 times topical daily For cream spots on the legs - do not use on the face, underarms, or groin ketoconazol Yes Seborrheic Q.5D Apply to [facility] (NIZORAL) 07-13 dermatitis affected Health 2 % topical 00:00: area 2 cream 00 times daily For rash on face triamcinolo Yes Lichen Q.5D Apply to [facility] 07-13 simplex affected Health (KENALOG) 00:00: chronicus area 2 0.1 % 00 times topical daily For cream spots on the legs - do not use on the face, underarms, or groin allopurinol 2021-07 Yes [id number] 100mg Take 1 Juan R (ZYLOPRIM) 07-28 Tablet by Deborah egchau 100 MG 00:00: mouth of tablet 00 daily. Medicin Start e after finishing 7 days of colchicine Colchicine 2021-07- Yes [id number] .6mg Take 0.6 Juan R 0.6 MG CAPS 07-28 12-06 mg by Colleg e 00:00: 05:59 mouth of 00 :00 daily for Medicin 7 days. e propranolol 2021-07 Yes 10mg Take 10 mg Juan R (INDERAL) 07-21 by mouth Colleg e 10 MG 13:44: daily. of tablet 33 Medicin e Ergocalcife 2021-07 Yes [id number] Take [facility] rol 1-21 50,000 College (ERGOCAL 13:44: Units by of OR) 33 mouth. Medicin e Multiple 2021-07 Yes 1{capsu Take 1 [facility] Vitamin 1-21 le} capsule by Harpreet ritchie (MULTIVITAM 13:44: mouth of IN ADULT 33 daily. Medicin OR) e folic acid 2021-07 Yes 1mg Take 1 mg [facility] (FOLVITE) 1 1-21 by mouth Deborah ege MG tablet 13:44: daily. of 33 Medicin e tacrolimus 2021-07- No .5mg Q.5D Take [address] [facility] (PROGRAF) 07-01 capsule [facility] 0.5 MG 00:00: 23:59 (0.5 mg Medical capsule 00 :00 total) by Center mouth 2 (two) times daily. tacrolimus 2021-07- No .5mg Q.5D Take [address] (PROGRAF) 07-01 capsule [facility] 0.5 MG 00:00: 23:59 (0.5 mg Medical capsule 00 :00 total) by Center mouth 2 (two) times daily. tacrolimus 2021-07- No .5mg Q.5D Take [address] (PROGRAF) 07-01 capsule [facility] 0.5 MG 00:00: 23:59 (0.5 mg Medical capsule 00 :00 total) by Center mouth 2 (two) times daily. AZITHROmyci 2021-07 Yes 250mg Q.[id number] Take [address] [facility] n 0-31 [id number] tablet [facility] (ZITHROMAX) 00:00: 3W (250 mg Med ical 250 MG 00 total) by Center tablet mouth 3 (three) times a week SAT/ I Take by mouth as directed.. AZITHROmyci 2021-07 Yes 250mg Q.[id number] Take [address] n 0-31 [id number] tablet [facility] (ZITHROMAX) 00:00: 3W (250 mg Med ical 250 MG 00 total) by Center tablet mouth 3 (three) times a week SAT/ I Take by mouth as directed.. AZITHROmyci 2021-07 Yes 250mg Q.[id number] Take [address] [facility] n 0-31 [id number] tablet [facility] (ZITHROMAX) 00:00: 3W (250 mg Med ical 250 MG 00 total) by Gause tablet mouth 3 (three) times a week MON/SAT/ I Take by mouth as directed.. propranolol Yes 10mg Take 10 mg Juan R (INDERAL) 8-08 by mouth Colleg e 10 MG 13:03: daily. of tablet 39 Medicin e Ergocalcife Yes [id number] Take [facility] or rol 808 50,000 College (ERGOCAL 13:03: Units by of [...] St n capsule 7-19 le} capsule by Luke s 14:05: mouth Medical 17 daily. Gause folic acid Yes 1mg QD Take [address] (FOLVITE) 1 7-19 by mouth Luke s MG tablet 14:05: daily. [address] multivitami Yes 1{capsu QD Take [address] n capsule 7-19 le} capsule by Luke s 14:05: mouth Medical 17 daily. Gause folic acid Yes 1mg QD Take [address] (FOLVITE) 1 7-19 by mouth Luke s MG tablet 14:05: daily. [address] multivitami Yes 1{capsu QD Take [address] n capsule 7-19 le} capsule by Luke s 14:05: mouth Medical 17 daily. Gause folic acid Yes 1mg QD Take [address] (FOLVITE) 1 7-19 by mouth Luke s MG tablet 14:05: daily. [address] hydrOXYzine Yes 25mg Take [address] [facility] (ATARAX) 25 7-19 tablet (25 Vicky kes MG tablet 00:00: mg total) Med ical 00 by mouth 2 Center (two) times daily as needed for Itching. hydrOXYzine 2022-0 Yes 25mg Take [address] [facility] (ATARAX) 25 7-19 tablet (25 Vicky kes MG tablet 00:00: mg total) Med ical 00 by mouth 2 Center (two) times daily as needed for Itching. hydrOXYzine 2-0 Yes 25mg Take [address] [facility] (ATARAX) 25 7-19 tablet (25 Vicky kes MG tablet 00:00: mg total) Med ical 00 by mouth 2 Center (two) times daily as needed for Itching. quetiapine 2021-0 2022- No 25mg Take 25 mg [facility] (SEROQUEL) 01-16- by mouth Deborah ege 25 MG 00:00: 04:59 nightly. of tablet 00 :00 Medicin e QUEtiapine 2021-0 2- No 25mg QD Take [address] [facility] (SEROquel) 01-16-18 tablet (25 Vicky kes 25 MG 00:00: 23:59 mg total) Medica l tablet 00 :00 by mouth Center nightly for 30 days. QUEtiapine 2021-0 202- No 25mg QD Take [address] [facility] (SEROquel) 01-16-18 tablet (25 Vicky kes 25 MG 00:00: 23:59 mg total) Medica l tablet 00 :00 by mouth Center nightly for 30 days. QUEtiapine 2021-0 2022- No 25mg QD Take [address] [facility] (SEROquel) 01-16-18 tablet (25 Vicky kes 25 MG 00:00: 23:59 mg total) Medica l tablet 00 :00 by mouth Center nightly for 30 days. furosemide 2021-0 Yes [id number] 40mg Take 1 Juan R (LASIX) 40 6-30 Tablet by Deborah ege MG tablet 00:00: mouth of 00 daily as Medicin needed for e Other (leg swelling). furosemide 2022-0 Yes [id number] 40mg Take 1 [facility] (LASIX) 40 6-30 Tablet by Deborah ege MG tablet 00:00: mouth of 00 daily as Medicin needed for e Other (leg swelling). traZODone 2021-0 2- No 50mg QD Take 1 [facility] [...] 3 (three) times a week at bedtime MON/SAT/FR I. Dx Code Z94.2. tacrolimus 2021- No Take [address] [facility] (PROGRAF) 11-06 capsule [facility] 0.5 MG 00:00: 00:00 (0.5 mg Medical capsule 00 :00 total) by Center mouth daily AND 1 capsule (0.5 mg total) 3 (three) times a week at bedtime MON/SAT/FR I. Dx Code Z94.2. Multiple Yes 1{capsu Take 1 [facility] Vitamin 2-07 le} capsule by Harpreet ritchie (MULTIVITAM 09:21: mouth of IN ADULT 05 daily. Medicin OR) e folic acid Yes 1mg Take 1 mg [facility] (FOLVITE) 1 2-07 by mouth Deborah ege MG tablet 09:21: daily. of 05 Medicin e propranolol Yes 10mg Take 10 mg [facility] (INDERAL) 08-07 by mouth Colleg e 10 MG 09:18: daily. of tablet 28 Medicin e Ergocalcife Yes [id number] Take [facility] rol 08-07 50,000 College (ERGOCAL 09:18: Units by of [...] mouth Center nightly for 61 days. QUEtiapine 2020-07- No 25mg QD Take 1 [...] UP TO 30 DAYS Ergocalcife 2020-07 Yes [id number] 1{capsu Take 1 [facility] rol 1.25 MG 2-06 le} capsule by Co llege ([id number] [place]) 00:00: mouth of CAPS 00 every 7 Medicin days. e Ergocalcife 2020-07 Yes [id number] 1{capsu Take 1 [facility] rol 1.25 MG 2-06 le} capsule by Co llege ([id number] UT) 00:00: mouth of CAPS 00 every 7 Medicin days. e Ergocalcife 2020-07 Yes [id number] 1{capsu Take 1 [facility] rol 1.25 MG 2-06 le} capsule by Co llege ([id number] [place]) 00:00: mouth of CAPS 00 every 7 Medicin days. e hydrOXYzine 2020-07- No Itching TAKE [address] [facility] (ATARAX) 10 1-11 12-13 TABLETS BY L ukes MG tablet 00:00: 00:00 MOUTH Medica l 00 :00 EVERY Center NIGHT AT BEDTIME NEEDED FOR ITCHING FOR UP TO 30 DAYS tricinolo 2020-07 Yes Pruritus Q.5D Apply to [facility] 07-05 affected Health (KENALOG) 00:00: area 2 0.1 % 00 times ointment daily Do not apply on the face, groin or axilla Use sparingly, only during flares to affected areas of the legs. Do NOT use consistent ly for more than 2 weeks at a time. [facility] Yes Pruritus Q.5D Apply to [facility] 07-05 affected Health (KENALOG) 00:00: area 2 0.1 % 00 times ointment daily Do not apply on the face, groin or axilla Use sparingly, only during flares to affected areas of the legs. Do NOT use consistent ly for more than 2 weeks at a time. AZITHROmyci 2020-07- No 250mg Q.[id number] Take [address] [facility] n 0-06 04-30 [id number] tablet [facility] (ZITHROMAX) 00:00: 00:00 3W (250 mg Me dical 250 MG 00 :00 total) by Center tablet mouth 3 (three) times a week I Take by mouth as directed.. AZITHROmyci 2020-07- No 250mg Q.[id number] Take [address] [facility] [facility] n 0-06 04-30 [id number] tablet [facility] (ZITHROMAX) 00:00: 00:00 3W (250 mg Me dical 250 MG 00 :00 total) by Center tablet mouth 3 (three) times a week I Take by mouth as directed.. AZITHROmyci 2020-07- No 250mg Q.[id number] Take [address] [facility] n 0-06 04-30 [id number] tablet [facility] (ZITHROMAX) 00:00: 00:00 3W (250 mg Me dical 250 MG 00 :00 total) by Center tablet mouth 3 (three) times a week I Take by mouth as directed.. albuterol 2020-07- No 2.5mg Take 3 mLs [...] 2.5 mg /3 00:00: 23:59 total) by Wy dical mL (0.083 00 :[address] [facility] er %) on every 6 nebulizer (six) solution hours as needed for Wheezing (congestio n). tacrolimus 2020-07- No .5mg QD Take 1 [...] Take 1 [facility] (DESYREL) 0-06 12- tablet (50 Shanta es 50 MG 00:00: 23:59 mg total) Medica l tablet 00 :00 by mouth Center nightly for 61 days. folic acid Yes 1mg Take 1 mg Velez rris (FOLVITE) 03-27 by mouth. Hea lth mg tablet 14:14: 02 MULTIVITAMI Yes 1{capsu Take 1 H arris NS capsule 03-27 le} capsule by [facility] lt 14:14: mouth. 02 folic acid Yes 1mg Take 1 mg Velez rris (FOLVITE) 03-27 by mouth. Hea lth mg tablet 14:14: 02 MULTIVITAMI Yes 1{capsu Take 1 H arris NS capsule 03-27 le} capsule by [facility] lt 14:14: mouth. 02 acetaminoph Yes Post-operat 1{tbl} Take 1 [place] en-codeine 9-17 alvaro pain tablet by [facility] (TYLENOL/CO 00:00: mouth DEINE #3) 00 every 6 300-30 mg hours as per tablet needed for Pain. acetaminoph Yes Post-operat 1{tbl} Take 1 [place] en-codeine 9-17 alvaro pain tablet by [facility] (TYLENOL/CO 00:00: mouth DEINE #3) 00 every 6 300-30 mg hours as per tablet needed for Pain. hydrOXYzine Yes TAKE 2 [facility]ia is (ATARAX) 10 9-13 TABLETS BY alth mg tablet 00:00: MOUTH 00 EVERY NIGHT AT BEDTIME NEEDED FOR ITCHING FOR UP TO 30 DAYS hydrOXYzine Yes TAKE 2 [facility]ia is (ATARAX) 10 9-13 TABLETS BY He alth mg tablet 00:00: MOUTH 00 EVERY NIGHT AT BEDTIME NEEDED FOR ITCHING FOR UP TO 30 DAYS bacitracin Yes Squamous Apply to [place] 500 7-09 cell cancer affected Heal th unit/gram 00:00: of skin of area. Oint 00 right cheek bacitracin Yes Squamous Apply to [place] 500 7-09 cell cancer affected Heal th unit/gram 00:00: of skin of area. Oint 00 right cheek tacrolimus 2021- No .5mg Take [address] [facility] (PROGRAF) -14 05-09 capsule [facility] 0.5 MG 00:00: 00:00 (0.5 mg Medical capsule 00 :00 total) by Center mouth 3 (three) times a week at bedtime I. tacrolimus 0 2021- No .5mg Take [address] [facility] (PROGRAF) 5-14 05-09 capsule [facility] 0.5 MG 00:00: 00:00 (0.5 mg Medical capsule 00 :00 total) by Center mouth 3 (three) times a week at bedtime I. tacrolimus 2021- No .5mg Take [address] [facility] (PROGRAF) 5-14 05-09 capsule [facility] 0.5 MG 00:00: 00:00 (0.5 mg Medical capsule 00 :00 total) by Center mouth 3 (three) times a week at bedtime I. propranolol 2021-0 Yes 10mg Take 10 mg [facility] (INDERAL) 4-19 by mouth Colleg e 10 MG 09:58: daily. of tablet 01 Medicin e Ergocalcife 2020-0 Yes [id number] Take [facility] rol 4-19 50,000 College (ERGOCAL 09:58: Units by of OR) 01 mouth. Medicin e predniSONE 2020-0 Yes 4mg Take 4 mg Velez rris (DELTASONE) 4-13 by mouth. Hea lth 1 mg tablet 00:00: 00 predniSONE 2020-0 Yes 4mg Take 4 mg [facility] r[facility] (DELTASONE) 4-13 by mouth. Hea lth 1 mg tablet 00:00: 00 predniSONE 2020-0 2021- No S/P lung 4mg QD Take [address] [facility] (DELTASONE) 4-13 05-09 transplant tablets (4 [facility] 1 MG tablet 00:00: 00:00 (HCC) mg total) Medical 00 :00 by mouth Center daily. predniSONE 2020-0 2021- No S/P lung 4mg QD Take [address] [facility] (DELTASONE) 4-13 05-09 transplant tablets (4 [facility] 1 MG tablet 00:00: 00:00 (HCC) mg total) Medical 00 :00 by mouth Center daily. predniSONE 2020-0 2021- No S/P lung 4mg QD Take [address] [facility] (DELTASONE) 4-13 05-09 transplant tablets (4 [facility] tablet 00:00: 00:00 (HCC) mg total) Medical 00 :00 by mouth Center daily. calcitrioL 0 Yes .25ug Take 0.25 [facility] (ROCALTROL) 3-29 mcg by Health 0.25 mcg 00:00: mouth. capsule 00 calcitRIOL [...] Indication e s: Secondary Hyperparat hyroidism calcitRIOL 2021-0 Yes 1565 .25ug Take 1 [facility] (ROCALTROL) 3-29 capsule by Co llege 0.25 MCG 00:00: mouth of capsule 00 daily. Medicin Indication e s: Secondary Hyperparat hyroidism calcitRIOL Yes 1565 .25ug Take 1 [facility] (ROCALTROL) 3-29 capsule by Co llege 0.25 MCG 00:00: mouth of capsule 00 daily. Medicin Indication e s: Secondary Hyperparat hyroidism calcitrioL Yes .25ug Take 0.25 [facility] (ROCALTROL) 3-29 mcg by Health 0.25 mcg 00:00: mouth. capsule 00 Ergocalcife Yes [id number] 1{capsu Take 1 [facility] rol 1.25 MG 2-08 le} capsule by Co llege ([id number] UT) 00:00: mouth of CAPS 00 every 7 Medicin days. e potassium Yes 1 tablet [facility] is chloride 2-01 daily, and Healt h (KLOR-CON) 00:00: take an 20 mEq 00 additional extended tablet if release you are tablet using Lasix that day as well. No more refills through my office. potassium Yes 1 tablet [facility] is chloride 2-01 daily, and Healt h (KLOR-CON) 00:00: take an 20 mEq 00 additional extended tablet if release you are tablet using Lasix that day as well. No more refills through my office. potassium 2021- No [address] [facility] chloride SA 08-01 daily, and L humza ([place]-OKSANA ALEXANDER 00:00: 00:00 take an Me dical -CON) 20 00 :00 additional Cente r MEQ tablet tablet if you are using Lasix that day as well. No more refills through my office. potassium 2021- No [address] [facility] chloride SA 08-01 daily, and L humza (K-CATHERINE,KLOR 00:00: 00:00 take an Me dical -CON) 20 00 :00 additional Cente r MEQ tablet tablet if you are using Lasix that day as well. No more refills through my office. potassium 2021- No [address] [facility] chloride SA 2-22 daily, and L albino (K-DUR,KLOR 00:00: 00:00 take an Me dical -CON) 20 00 :00 additional Cente r MEQ tablet tablet if you are using Lasix that day as well. No more refills through my office. propranolol Yes 10mg Take 10 mg [facility] (INDERAL) 26 by mouth Colleg e 10 MG 15:47: daily. of tablet 08 Medicin e Ergocalcife Yes [id number] Take [facility] rol - 50,000 College (ERGOCAL 15:47: Units by of OR) 08 mouth. Medicin e lactulose 2021- No Other 20g [id number] Take [address] [facility] (Kristalose 1-14 24 cirrhosis [id number] packet (20 [facility] ) 20 gram 00:00: [...] propranolol 2019-07 Yes 10mg Take 10 mg [facility] (INDERAL) - by mouth Colleg e 10 MG 15:26: daily. of tablet 54 Medicin e Ergocalcife 2019-07 Yes [id number] Take [facility] rol 2-07 50,000 College (ERGOCAL 15:26: Units by of OR) 54 mouth. Medicin e lipase-prot 2019-07 Yes Take 2 [facility] ease-amylas 1-16 tabs po Healt h e 00:00: with 36,000-114, 00 meals. 000- 180,000 unit CpDR lipase-prot 2019-07 Yes Take 2 [facility] is [...] Health 800 mg 00:00: mouth. tablet 00 furosemide 2019-07 Yes Continue [facility] (LASIX) 40 1-02 taking 1 Healt h mg tablet 00:00: tablet 00 daily as needed for fluid retention. sevelamer 2019-07 Yes 800mg Take 800 [facility] (RENAGEL) 1-02 mg by Health 800 mg 00:00: mouth. tablet 00 sevelamer 2019-07 Yes [id number] 800mg Take 1 Tab [facility] (RENAGEL) 1-02 by mouth 3 [facility] 800 MG 00:00: times of tablet 00 daily. Medicin e calcitRIOL 2019-07 Yes 1565 .25ug Take 1 Cap [facility] (ROCALTROL) 1-02 by mouth [facility] ege 0.25 MCG 00:00: daily. of capsule 00 Indication Medici n s: e Secondary Hyperparat hyroidism furosemide 2019-07 Yes [id number] 40mg Take 1 Tab [facility] (LASIX) 40 1-02 by mouth Colle ge MG tablet 00:00: daily as of 00 needed for Medicin Other (leg e swelling). sodium 2019-07 Yes [id number] 650mg Take 2 [place] [facility] bicarbonate 1-02 Tabs by Colle ge 325 MG 00:00: mouth 3 of tablet 00 times Medicin daily. e Ergocalcife 2019-07 Yes [id number] 1{capsu Take 1 Cap [facility] rol 1.25 MG 1-02 le} by mouth [facility]ge ([id number] UT) 00:00: every 7 of CAPS 00 days. Medicin e sevelamer 2019-07 Yes [id number] 800mg Take 1 Tab [facility] (RENAGEL) 1-02 by mouth 3 [facility] 800 MG 00:00: times of tablet 00 daily. Medicin e furosemide 2019-07 Yes [id number] 40mg Take 1 Tab [facility] (LASIX) 40 1-02 by mouth Colle ge MG tablet 00:00: daily as of 00 needed for Medicin Other (leg e swelling). sodium 2019-07 Yes [id number] 650mg Take 2 [place] [facility] bicarbonate 1-02 Tabs by Colle ge 325 MG 00:00: mouth 3 of tablet 00 times Medicin daily. e sevelamer 2019-07 Yes [id number] 800mg Take 1 Tab [facility] (RENAGEL) 1-02 by mouth 3 [facility] 800 MG 00:00: times of tablet 00 daily. Medicin e furosemide 2019-07 Yes [id number] 40mg Take 1 Tab [facility] (LASIX) 40 1-02 by mouth Colle ge MG tablet 00:00: daily as of 00 needed for Medicin Other (leg e swelling). sodium 2019-07 Yes [id number] 650mg Take 2 [place] [facility] bicarbonate 1-02 Tabs by Colle ge 325 MG 00:00: mouth 3 of tablet 00 times Medicin daily. e sodium 2019-07 Yes [id number] 650mg Take 2 [place] [facility] bicarbonate 1-02 Tabs by Colle ge 325 MG 00:00: mouth 3 of tablet 00 times Medicin daily. e sodium 2019-07 Yes [id number] 650mg Take 2 [place] [facility] bicarbonate 1-02 Tabs by Colle ge 325 MG 00:00: mouth 3 of tablet 00 times Medicin daily. e sevelamer 2019-07 Yes [id number] 800mg Take 1 Tab [facility] (RENAGEL) 1-02 by mouth 3 [facility] ege 800 MG 00:00: times of tablet 00 daily. Medicin e calcitRIOL 2019-07 Yes 1565 .25ug Take 1 Cap [facility] (ROCALTROL) 1-02 by mouth Deborah ege 0.25 MCG 00:00: daily. of capsule 00 Indication Medici n s: e Secondary Hyperparat hyroidism furosemide 2019-07 Yes [id number] 40mg Take 1 Tab [facility] (LASIX) 40 -02 by mouth Colle ge MG tablet 00:00: daily as of 00 needed for Medicin Other (leg e swelling). sodium 2019-07 Yes [id number] 650mg Take 2 [place] [facility] bicarbonate 1-02 Tabs by Colle ge 325 MG 00:00: mouth 3 of tablet 00 times Medicin daily. e Ergocalcife 2019-07 Yes [id number] 1{capsu Take 1 Cap [facility] rol 1.25 MG -02 le} by mouth [facility] ege ([id number] UT) 00:00: every 7 of CAPS 00 days. Medicin e sevelamer 2019-07- No [id number] 800mg Take 1 Tab [facility] (RENAGEL) 1-02 08-08 by mouth 3 Col lege 800 [...] times Center daily as needed . ondansetron 2019- Yes 4mg Take [address] [facility] (ZOFRAN) 4 0-08 by mouth 3 [facility] es MG tablet 00:00: (three) Medic al 00 times Center daily as needed . tacrolimus 2019- Yes .5mg Take 0.5 [facility] (PROGRAF) 8-28 mg by Health 0.5 mg 00:00: mouth. capsule 00 tacrolimus 2020-0 Yes .5mg Take 0.5 [facility] (PROGRAF) 8-28 mg by Health 0.5 mg 00:00: mouth. capsule 00 rifAXIMin 2020-0 2021- No 550mg Q.5D Take [address] [facility] 550 mg Tab 301-19 tablet [facility] (550 mg Medical 00 :00 total) by Center mouth 2 (two) times daily. rifAXIMin 2020-0 2021- No 550mg Q.5D Take [address] [facility] 550 mg Tab 301-19 tablet [facility] 00:[facility]: [facility] (550 mg Medical [...] 2 (two) times daily. Pancrelipas 2020-0 Yes [id number] 2{capsu Take 2 [facility] e, 1- le} Caps by [facility] Lip-Prot-Am 00:00: mouth 3 of yl, 32903 00 times Medicin units CPEP daily e (with meals). And 1 cap with snacks. diphenoxyla 2020-0 Yes [id number] 1{tbl} Take 1 Tab [facility] te-atropine 1-03 by mouth 4 Co llege (LOMOTIL) 00:00: times of 2.5-0.025 00 daily as Medici n MG per needed for e tablet Diarrhea. Pancrelipas 2020-0 Yes [id number] 2{capsu Take 2 [facility] e, 1-03 le} Caps by [facility] Lip-Prot-Am 00:00: mouth 3 of yl, 27143 00 times Medicin units CPEP daily e (with meals). And 1 cap with snacks. diphenoxyla 2020-0 Yes [id number] 1{tbl} Take 1 Tab [facility] te-atropine 1-03 by mouth 4 Co llege (LOMOTIL) 00:00: times of 2.5-0.025 00 daily as Medici n MG per needed for e tablet Diarrhea. Pancrelipas 2020-0 Yes [id number] 2{capsu Take 2 [facility] e, 1-03 le} Caps by [facility] Lip-Prot-Am 00:00: mouth 3 of yl, 33857 00 times Medicin units CPEP daily e (with meals). And 1 cap with snacks. diphenoxyla 2020-0 Yes [id number] 1{tbl} Take 1 Tab [facility] te-atropine 1-03 by mouth 4 Co llege (LOMOTIL) 00:00: times of 2.5-0.025 00 daily as Medici n MG per needed for e tablet Diarrhea. Pancrelipas 2020-0 Yes [id number] 2{capsu Take 2 [facility] e, 1-03 le} Caps by [facility] Lip-Prot-Am 00:00: mouth 3 of yl, 35223 00 times Medicin units CPEP daily e (with meals). And 1 cap with snacks. diphenoxyla 2020-0 Yes [id number] 1{tbl} Take 1 Tab [facility] te-atropine 1-03 by mouth 4 Co [facility]lege (LOMOTIL) 00:00: times of 2.5-0.025 00 daily as Medici n MG per needed for e tablet Diarrhea. Pancrelipas 2020-0 Yes [id number] 2{capsu Take 2 [facility] e, 1-03 le} Caps by [facility] Lip-Prot-Am 00:00: mouth 3 of yl, 78859 00 times Medicin units CPEP daily e (with meals). And 1 cap with snacks. diphenoxyla 2020-0 Yes [id number] 1{tbl} Take 1 Tab [facility] te-atropine 1-03 by mouth 4 Co llege (LOMOTIL) 00:00: times of 2.5-0.025 00 daily as Medici n MG per needed for e tablet Diarrhea. Pancrelipas 2019- Yes [id number] 2{capsu Take 2 [facility] e, 1-03 le} Caps by [facility] Lip-Prot-Am 00:00: mouth 3 of yl, 76887 00 times Medicin units CPEP daily e (with meals). And 1 cap with snacks. diphenoxyla Yes [id number] 1{tbl} Take 1 Tab [facility] te-atropine 1-03 by mouth 4 Co [facility]lege (LOMOTIL) 00:00: times of 2.5-0.025 00 daily as Medici n MG per needed for e tablet Diarrhea. propranolol Yes 10mg Take 10 mg [facility] (INDERAL) 8-07 by mouth Colleg e 10 MG 18:32: daily. of tablet 30 Medicin e Na 2018- [id number] [facility] Sulfate-K 8-07 Take as [facility] Sulfate-Mg 00:00: directed. of Sulf 00 Medicin (SUPREP e BOWEL PREP KIT) 17.5-3.13-1 .6 GM/177ML SOLN Na 2019- Yes [id number] [facility] Sulfate-K 8-07 Take as [facility] Sulfate-Mg 00:00: directed. of Sulf 00 Medicin (SUPREP e BOWEL PREP KIT) 17.5-3.13-1 .6 GM/177ML SOLN Na 2019-0 Yes [id number] [SUPREP] [facility] Sulfate-K 8-07 Take as College Sulfate-Mg 00:00: directed. of Sulf 00 Medicin (SUPREP e BOWEL PREP KIT) 17.5-3.13-1 .6 GM/177ML SOLN Na 2019- Yes [id number] [SUPREP] [facility] Sulfate-K 8-07 Take as College Sulfate-Mg 00:00: directed. of Sulf 00 Medicin (SUPREP e BOWEL PREP KIT) 17.5-3.13-1 .6 GM/177ML SOLN Na 2019-0 Yes [id number] [SUPREP] [facility] Sulfate-K 8-07 Take as [facility] Sulfate-Mg 00:00: directed. of Sulf 00 Medicin (SUPREP e BOWEL PREP KIT) 17.5-3.13-1 .6 GM/177ML SOLN Na 2019-0 Yes [id number] [SUPREP] [facility] Sulfate-K - Take as College Sulfate-Mg 00:00: directed. of Sulf 00 Medicin (SUPREP e BOWEL PREP KIT) 17.5-3.13-1 .6 GM/177ML SOLN Na 2018-0 Yes [id number] [SUPREP] [facility] Sulfate-K 8- Take as College Sulfate-Mg 00:00: directed. of Sulf 00 Medicin (SUPREP e BOWEL PREP KIT) 17.5-3.13-1 .6 GM/177ML SOLN metronidazo 2018- 2019- No [id number] 500mg Take 1 Tab [facility] le (FLAGYL) 02-04-15 by mouth Col lege 500 MG 00:00: 04:59 two times of tablet 00 :00 daily for Medicin 7 days. e tacrolimus 2019-0 Yes .5mg Take 0.5 [place] [facility] (PROGRAF) 5-21 mg by [facility] 0.5 MG 00:00: mouth two of capsule 00 times Medicin daily. e tacrolimus 2019-0 Yes .5mg Take 0.5 [place] [facility] (PROGRAF) 5-21 mg by [facility] 0.5 MG 00:00: mouth two of capsule 00 times Medicin daily. e tacrolimus 2019-0 Yes .5mg Take 0.5 [place] [facility] (PROGRAF) 5-21 mg by [facility] 0.5 MG 00:00: mouth two of capsule 00 times Medicin daily. e tacrolimus 2019-0 Yes .5mg Take 0.5 [place] [facility] (PROGRAF) 5-21 mg by [facility] 0.5 MG 00:00: mouth two of capsule 00 times Medicin daily. e tacrolimus 2019-0 Yes .5mg Take 0.5 [place] [facility] (PROGRAF) 5-21 mg by College 0.5 MG 00:00: mouth two of capsule 00 times Medicin daily. e tacrolimus 2019-0 Yes .5mg Take 0.5 [place] [facility] (PROGRAF) 5-21 mg by College 0.5 MG 00:00: mouth two of capsule 00 times Medicin daily. e tacrolimus 2019-0 Yes .5mg Take 0.5 [place] [facility] (PROGRAF) 5-21 mg by [facility] 0.5 MG 00:00: mouth two of capsule [...] daily. of capsule 00 Medicin e furosemide 2018-0 2020- No 20mg Take 20 mg [facility] (LASIX) 20 2-05 02-06 by mouth [facility] ege MG tablet 00:00: 05:59 daily. of 00 :00 Medicin e Calcium 2017-07 2019- No 1500mg Take 1,500 [facility] Carbonate 2-10 12-11 mg by [facility] (CALCIUM 00:00: 05:59 mouth of 600) 600 MG 00 :00 daily. Medici n TABS e azithromyci 2017- Yes 1{tbl} Take 1 Tab [facility] n 0-08 by mouth [facility] (ZITHROMAX) 00:00: every of 250 MG Saturday, Medicin tablet Saturday, saturday. azithromyci 2017-07 Yes 1{tbl} Take 1 Tab [facility] n 0-08 by mouth [facility] (ZITHROMAX) 00:00: every of 250 MG Saturday, Medicin tablet Saturday, e Saturday. azithromyci 2017-07 Yes 1{tbl} Take 1 Tab [facility] n 0-08 by [facility] (ZITHROMAX) 00:00: every of 250 MG 00 Saturday, Medicin tablet Saturday, e Saturday. azithromyci 2017-07 Yes 1{tbl} Take 1 Tab [facility] n 0-08 by [facility] (ZITHROMAX) 00:00: every of 250 MG Saturday, Medicin tablet Saturday, e Saturday. azithromyci 2017-07 Yes 1{tbl} Take 1 Tab [facility] n 0-08 by [facility] (ZITHROMAX) 00:00: every of 250 MG Saturday, Medicin tablet Saturday, e Saturday. azithromyci 2017-07 Yes 1{tbl} Take 1 Tab [facility] n 0-08 by [facility] (ZITHROMAX) 00:00: every of 250 MG Saturday, Medicin tablet Saturday, e Saturday. azithromyci 2017-07 Yes 1{tbl} Take 1 Tab [facility] n 0-08 by [facility] (ZITHROMAX) 00:00: every of 250 MG Saturday, Medicin tablet Saturday, e Saturday. predniSONE 2011-07 Yes [id number] 10mg Take 1 Tab [facility] (DELTASONE) 1-05 by mouth [facility] 10 MG 00:00: daily. of tablet 00 Take as Medicin directed e predniSONE 2011-07 Yes [id number] 10mg Take 1 Tab [facility] (DELTASONE) 1-05 by mouth [facility] ege 10 MG 00:00: daily. of tablet 00 Take as Medicin directed e predniSONE 2011-07 Yes [id number] 10mg Take 1 Tab [facility] (DELTASONE) 1-05 by mouth [facility] 10 MG 00:00: daily. of tablet 00 Take as Medicin directed e predniSONE 2011-07 Yes [id number] 10mg Take 1 Tab [facility] (DELTASONE) 1-05 by mouth [facility] ege 10 MG 00:00: daily. of tablet 00 Take as Medicin directed e predniSONE 2011-07 Yes [id number] 10mg Take 1 Tab [facility] (DELTASONE) 1-05 by mouth [facility] 10 MG 00:00: daily. of tablet 00 Take as Medicin directed e predniSONE 2011-07 Yes [id number] 10mg Take 1 Tab [facility] (DELTASONE) 1-05 by mouth [facility] ege 10 MG 00:00: daily. of tablet 00 Take as Medicin directed e predniSONE 2011-07 Yes [id number] 10mg Take 1 Tab [facility] (DELTASONE) 1-05 by mouth [facility] ege 10 MG 00:00: daily. of tablet 00 Take as Medicin directed e albuterol Yes [id number] 1{puff} Inhale 1-2 [facility] HFA (PROAIR 7-18 Puffs by [facility] ege HFA) 108 00:00: mouth of (90 base) 00 every 6 Medicin mcg/act hours as e inhaler needed for Wheezing (or shortness of breath). albuterol Yes [id number] 1{puff} Inhale 1-2 [facility] HFA (PROAIR 7-18 Puffs by [facility] ege HFA) 108 00:00: mouth of (90 base) 00 every 6 Medicin mcg/act hours as e inhaler needed for Wheezing (or shortness of breath). albuterol Yes [id number] 1{puff} Inhale 1-2 [facility] HFA (PROAIR 7-18 Puffs by [facility] ege HFA) 108 00:00: mouth of (90 base) 00 every 6 Medicin mcg/act hours as e inhaler needed for Wheezing (or shortness of breath). albuterol Yes [id number] 1{puff} Inhale 1-2 [facility] HFA (PROAIR 7-18 Puffs by [facility] ege HFA) 108 00:00: mouth of (90 base) 00 every 6 Medicin mcg/act hours as e inhaler needed for Wheezing (or shortness of breath). albuterol Yes [id number] 1{puff} Inhale 1-2 [facility]FA (PROAIR 7-18 Puffs by [facility] ege HFA) 108 00:00: mouth of (90 base) 00 every 6 Medicin mcg/act hours as e inhaler needed for Wheezing (or shortness of breath). albuterol Yes [id number] 1{puff} Inhale 1-2 [facility]FA (PROAIR 7-18 Puffs by [facility] HFA) 108 00:00: mouth of (90 base) 00 every 6 Medicin mcg/act hours as e inhaler needed for Wheezing (or shortness of breath). albuterol 2012-0 Yes [id number] 1{puff} Inhale 1-2 [facility] HFA (PROAIR 7-18 Puffs by [facility] HFA) 108 00:00: mouth of (90 base) 00 every 6 Medicin mcg/act hours as e inhaler needed for Wheezing (or shortness of breath). Immunizations Ordered Immunization Filled Immunization Date Status Commen ts Source Name Name Covid-19 Vaccine MRNA 2020-10-[address] [facility] (PF) 18yr+ 00:00:00 [facility] ([facility])([id number]) Covid-19 Vaccine MRNA 2020-10-[address] [facility] (PF) 18yr+ 00:00:00 [facility])([id number]) Covid-19 Vaccine MRNA 2020-10-[address] [facility] (PF) 18yr+ 00:00:00 [facility])([id number]) Moderna SARS-CoV-2 2020-10-07 Completed [facility] Vaccination 00:00:00 of Medicine [facility] SARS-CoV-2 2020-10-07 Completed [facility] Vaccination 00:00:00 of Medicine [facility] SARS-CoV-2 2020-10-07 Completed [facility] Vaccination 00:00:00 of Medicine [facility] .5mL 2020-10-07 Completed [facility] ge SARS-CoV-2 00:00:00 of Medicine Vaccination Covid-19 Vaccine MRNA 2020-08-[address] [facility] (PF) 18yr+ 00:00:00 [facility] ([facility])([id number]) Covid-19 Vaccine MRNA 2020-08-[address] [facility] (PF) 18yr+ 00:00:00 [facility] ([facility])([id number]) Covid-19 Vaccine MRNA 2020-08-[address] [facility] (PF) 18yr+ 00:00:00 [facility] ([facility])([id number]) Moderna SARS-CoV-2 2020-08-31 Completed [facility] Vaccination 00:00:00 of Medicine Moderna SARS-CoV-2 2020-08-31 Completed [facility] Vaccination 00:00:00 of Medicine Moderna SARS-CoV-2 2020-08-31 Completed [facility] Vaccination 00:00:00 of Medicine Moderna .5mL 2020-08-31 Completed [facility] SARS-CoV-2 00:00:00 of Medicine Vaccination INFLUENZA TRIVALENT 2019-04-25 [facility] ADJUVANTED PF IM 00:00:00 [facility] INFLUENZA TRIVALENT 2019-04-25 [facility] ADJUV[facility] PF IM 00:00:00 [facility] INFLUENZA TRIVALENT 2019-04-25 [facility] ADJUVANTED PF IM 00:00:00 [facility] Pneumococcal 2018-05-[address] [facility] Conjugate (Prevnar) 00:00:00 [facility] 13-Valent Influenza High Dose 2018-05-29 [facility] Preservative Free IM 00:00:00 [facility] ([id number]) Pneumococcal 2018-05-[address] [facility] Conjugate (Prevnar) 00:00:00 [facility] 13-Valent Influenza High Dose 2018-05-29 [facility] Preservative Free IM 00:00:00 [facility] ([id number]) Pneumococcal 2018-05-[address] [facility] Conjugate (Prevnar) 00:00:00 [facility] 13-Valent Influenza High Dose 2018-05-29 [facility] Preservative Free IM 00:00:00 [facility] ([id number]) Influenza High Dose 2016-06-05 Com[facility] Preservative Free IM 00:00:00 [facility] ([id number]) Influenza High Dose 2016-06-05 Com[facility] Preservative Free IM 00:00:00 [facility] ([id number]) Influenza High Dose 2016-06-05 [facility] Preservative Free IM 00:00:00 [facility] ([id number]) Influenza High Dose 2015-05-24 [facility] Preservative Free 00:00:00 [facility] Influenza High Dose 2015-05-24 [facility] Preservative Free 00:00:00 [facility] Influenza High Dose 2015-05-24 [facility] Preservative Free 00:00:00 [facility] Influenza, High Dose 2014-04-[address] [facility] Seasonal 00:00:00 [facility] Influenza, High Dose 2014-04-[address] [facility] Seasonal 00:00:00 Medical Center Influenza, High Dose 2014-04-[address] [facility] Seasonal 00:00:00 [facility] Hepatitis B 2012-08-[address] [facility] 00[facility]00:00 [facility] Hepatitis B 2012-08-[address] [facility] 00:00:00 [facility] Hepatitis B 2012-08-[address] [facility] 00[facility]00:00 [facility] Hepatitis B 2012-06-[address] [facility] 00[facility]00:00 [facility] Hepatitis B 2012-06-[address] [facility] 00[facility]00:00 [facility] Hepatitis B 2012-06-[address] [facility] 00:00:00 [facility] Influenza TIV (IM) 2012-03-[address] [facility] 00:00:00 [facility] Influenza TIV (IM) 2012-03-[address] [facility] 00:00:00 [facility] Influenza TIV (IM) 2012-03-[address] [facility] 00:00:00 [facility] Center Td 2008-10-21 Completed [facility] 00:00:00 of Medicine Pneumococcal 2008-10-21 Completed [facility] Colle ge Conjugate 00:00:00 of Medicine Td 2008-10-21 Completed [facility] College 00:00:00 of Medicine Pneumococcal 2008-10-21 Completed [facility] Colle ge Conjugate 00:00:00 of Medicine Td 2008-10-21 Completed [facility] College 00:00:00 of Medicine Pneumococcal 2008-10-21 Completed [facility] Colle ge Conjugate 00:00:00 of Medicine Td 2008-10-21 Completed [facility] 00:00:00 of Medicine Pneumococcal 2008-10-21 Completed [facility]le [facility] Conjugate 00:00:00 of Medicine Td 2008-10-21 Completed [facility] College 00:00:00 of Medicine Pneumococcal 2008-10-21 Completed [facility] Colle ge Conjugate 00:00:00 of Medicine Td 2008-10-21 Completed [facility] College 00:00:00 of Medicine Pneumococcal 2008-10-21 Completed [facility]le [facility] Conjugate 00:00:00 of Medicine Td 2008-10-21 Completed [facility] College 00:00:00 of Medicine Pneumococcal 2008-10-21 Completed [facility] Colle ge Conjugate 00:00:00 of [...] kg Systolic blood 2022-05-21 19:41:00 187 mm[Hg] [facility] Medicine Diastolic blood 2022-05-21 19:41:00 62 mm[Hg] [facility] Medicine Heart rate 2022-05-21 19:41:00 66 /min [facility] Respiratory rate 2022-05-21 19:41:00 16 /min [facility] Body height 2022-05-21 19:41:00 [facility] weight 2022-05-21 19:41:00 [facility] BMI 2022-05-21 19:41:00 19.21 [facility]2 [facility] Systolic blood 2022-02-05 18:02:00 173 mm[Hg] [facility] Medicine Diastolic blood 2022-02-05 18:02:00 78 mm[Hg] [facility] Medicine Heart rate 2022-02-05 18:02:00 71 /min [facility] Medicine Respiratory rate 2022-02-05 18:02:00 16 /min [facility] Body height 2022-02-05 18:02:[address] [facility] Body weight 2022-02-05 18:02:[address] [facility] BMI 2022-02-05 18:02:00 19.50 kg/m2 [facility] Systolic blood 2021-08-07 15:21:00 116 mm[Hg] [facility] Medicine Diastolic blood 2021-08-07 15:21:00 62 mm[Hg] [facility] Medicine Heart rate 2021-08-07 15:21:00 60 /min [facility] of Medicine Body height 2021-08-07 15:21:00 167.6 cm [facility] Body weight 2021-08-07 15:21:00 55.792 kg [facility] BMI 2021-08-07 15:21:00 19.85 kg/m2 [facility] WEIGHT 2021-02-28 10:08:00 58.559 kg WEIGHT 2021-02-28 10:08:00 58.559 kg WEIGHT 2021-02-13 12:20:00 57.108 kg WEIGHT 2020-11-09 20:00:00 54.477 kg HEIGHT 2020-11-09 20:00:00 165.1 cm WEIGHT 2020-11-09 20:00:00 54.477 kg HEIGHT 2020-11-09 20:00:00 165.1 cm Systolic blood 2020-10-17 14:53:00 124 mm[Hg] [facility] of pressure Medicine Diastolic blood 2020-10-17 14:53:00 65 mm[Hg] [facility] of pressure Medicine Heart rate 2020-10-17 14:53:00 65 /min [facility] Body height 2020-10-17 14:53:00 167.6 cm [facility] Body weight 2020-10-17 14:53:00 54.432 kg [facility] BMI 2020-10-17 14:53:00 19.37 kg/m2 [facility] Systolic blood 2020-10-17 14:53:00 124 mm[Hg] [facility] of pressure Medicine Diastolic blood 2020-10-17 14:53:00 65 mm[Hg] [facility] of pressure Medicine Heart rate 2020-10-17 14:53:00 65 /min [facility] Body height 2020-10-17 14:53:00 167.6 cm [facility] Body weight 2020-10-17 14:53:00 54.432 kg [facility] BMI 2020-10-17 14:53:00 19.37 kg/m2 [facility] ollege of Medicine WEIGHT 2020-09-16 09:02:00 47.628 kg HEIGHT 2020-08-23 14:44:00 165.1 cm WEIGHT 2020-08-23 14:44:00 44.861 kg WEIGHT 2020-08-01 12:00:00 44.543 kg WEIGHT 2020-07-31 10:00:00 44.861 kg WEIGHT 2020-08-01 12:00:00 44.543 kg WEIGHT 2020-07-31 10:00:00 44.861 kg Systolic blood 2020-07-26 15:47:00 107 mm[Hg] [facility] pressure Medicine Diastolic blood 2020-07-26 15:47:00 61 mm[Hg] [facility] pressure Medicine Heart rate 2020-07-26 15:47:00 79 /min [facility] Systolic blood 2020-07-26 15:47:00 107 mm[Hg] [facility] pressure Medicine Diastolic blood 2020-07-26 15:47:00 61 mm[Hg] [facility] pressure Medicine Heart rate 2020-07-26 15:47:00 79 /min [facility] HEIGHT 2020-07-14 12:21:00 167.6 cm WEIGHT [...] kg Systolic blood 2020-06-06 15:21:00 91 mm[Hg] [facility] Medicine Diastolic blood 2020-06-06 15:21:00 62 mm[Hg] [facility] Medicine Heart rate 2020-06-06 15:21:00 84 /min [facility] ollege of Medicine Respiratory rate 2020-06-06 15:21:00 16 /min [facility] Body height 2020-06-06 15:21:00 167.6 cm [facility] Body weight 2020-06-06 15:21:00 52.527 kg [facility] BMI 2020-06-06 15:21:00 18.69 kg/m2 [facility] Systolic blood 2020-06-06 15:21:00 91 mm[Hg] [facility] Medicine Diastolic blood 2020-06-06 15:21:00 62 mm[Hg] [facility] Medicine Heart rate 2020-06-06 15:21:00 84 /min [facility] ollege of Medicine Respiratory rate 2020-06-06 15:21:00 16 /min [facility] Body height 2020-06-06 15:21:00 167.6 cm [facility] Body weight 2020-06-06 15:21:00 52.527 kg [facility] BMI 2020-06-06 15:21:00 18.69 kg/m2 [facility] HEIGHT [...] kg Systolic blood 2019-02-04 18:32:00 130 mm[Hg] [facility] pressure Medicine Diastolic blood 2019-02-04 18:32:00 75 mm[Hg] [facility] pressure Medicine Heart rate 2019-02-04 18:32:00 61 /min [facility] Body temperature 2019-02-04 18:32:00 36.89 Saray [facility] Respiratory rate 2019-02-04 18:32:00 16 /min [facility] Body height 2019-02-04 18:32:00 167.6 cm [facility] Body weight 2019-02-04 18:32:00 52.345 kg [facility] BMI 2019-02-04 18:32:00 18.63 kg/m2 [facility] Systolic blood 2019-02-04 18:32:00 130 mm[Hg] [facility] Medicine Diastolic blood 2019-02-04 18:32:00 75 mm[Hg] [facility] Heart rate 2019-02-04 18:32:00 61 /min [facility] Body temperature 2019-02-04 18:32:00 36.89 Saray [facility] Respiratory rate 2019-02-04 18:32:00 16 /min [facility] Body height 2019-02-04 18:32:00 167.6 cm [facility] Body weight 2019-02-04 18:32:00 52.345 kg [facility] BMI 2019-02-04 18:32:00 18.63 kg/m2 [facility] Body height 2022-07-13 15:08:00 167.6 cm [facility] Systolic blood 2022-01-16 13:34:00 181 mm[Hg] [facility] Diastolic blood 2022-01-16 13:34:00 73 mm[Hg] [facility] Heart rate 2022-01-16 13:34:00 62 /min [facility] Body temperature 2022-01-16 13:34:00 36 Saray [facility] Body height 2022-01-16 13:34:00 167.6 cm [facility] Body weight 2022-01-16 13:34:00 52.663 kg [facility] BMI 2022-01-16 13:34:00 18.74 kg/m2 [facility] Oxygen saturation in 2022-01-16 13:34:00 100 /min [facility] Arterial blood by Medical Ce nter Pulse oximetry Respiratory rate 2022-01-16 11:31:00 18 /min [facility] Procedures Procedure Date / Time Performing Clinician Source Performed COMPREHENSIVE METABOLIC 2022-05-21 20:19:00 Roman Myers [facility] PANEL [facility] Medicine PHOSPHORUS 2022-05-21 20:19:00 Lucia neo Baez [facility] llege [facility] URIC ACID 2022-05-21 20:19:00 Lucia, neo Baez [facility] lleg of [facility] CBC W/AUTO DIFF WITH 2022-05-21 20:19:00 Lucia neo Baez [facility] PLATELETS [facility] IRON+TIBC+%SAT 2022-05-21 20:19:00 Lucia [facility] TACROLIM[facility] LEVEL 2022-05-21 20:19:00 Lucia neo Baez [facility] Ez ollege [facility] URINALYSIS, COMPLETE 2022-05-21 20:19:00 Roman Myers [place] [facility] W/REFLEX TO CULTURE [facility] 6 MINUTE WALK(FOR LUNG 2022-01-16 10:16:31 July Hennessy [facility] TRANSPLANT ONLY) [facility] Center SPIROMETRY 2022-01-16 10:16:31 [facility] CBC W/PLT COUNT & AUTO 2022-01-16 09:59:00 Ginny Pb [facility] CMV PCR, QUANTITATIVE 2022-01-16 09:59:00 Pb [facility] COMPREHENSIVE METABOLIC 2022-01-16 09:59:00 [facility] EBV VIRAL LOAD 2022-01-16 09:59:00 [facility] HEMOGLOBIN A1C 2022-01-16 09:59:00 [facility] IMMUNOGLOBULIN G (IGG) 2022-01-16 09:59:00 [facility] LIPID PANEL 2022-01-16 09:59:00 Ginny [facility] MAGNESIUM 2022-01-16 09:59:00 Ginny [facility] PSA 2022-01-16 09:59:00 Ginny [facility] TACROLIMUS LEVEL 2022-01-16 09:59:00 Ginny [facility] VITAMIN D, 25-HYDROXY 2022-01-16 09:59:00 Pb [facility] FLOW PRA CLASS I WITH 2022-01-16 09:59:00 Pb Gross [facility] REFLEX TO ANTIBODY Medical Cente r SPECIFICITY FLOW PRA CLASS II WITH 2022-01-16 09:59:00 Ginny [facility] REFLEX TO ANTIBODY Medical Cente r SPECIFICITY AB SPECIFICITY CLASS I 2022-01-16 09:59:00 Ginny [facility] AB SPECIFICITY CLASS II 2022-01-16 09:59:00 Ginny [facility] AB DONOR SPECIFIC, DSA 2022-01-16 09:59:00 Ginny [facility] CBC W/PLT COUNT & AUTO 2022-01-16 09:59:00 Ginny [facility] URINE CULTURE 2022-01-16 09:57:00 Ginny [facility] CREATININE, RANDOM URINE 2022-01-16 09:57:00 Ginny Pb [facility] MICROALBUMIN, RANDOM 2022-01-16 09:57:00 Ginny [facility] PROTEIN, RANDOM URINE 2022-01-16 09:57:00 Pb [facility] URINALYSIS W/ REFLEX 2022-01-16 09:57:00 Ginny Pbthor Guerra [facility] URINE CULTURE [facility] CT CHEST WITHOUT IV 2022-01-16 08:22:[address] [facility] XR DXA BONE DENSITY STUDY 2022-01-16 08:15:00 July Hennessy [facility] CBC W/PLT COUNT & AUTO 2021-12-04 10:45:00 Que [facility] CMV PCR, QUANTITATIVE 2021-12-04 10:45:00 Que [facility] COMPREHENSIVE METABOLIC 2021-12-04 10:45:00 Que [facility] MAGNESIUM 2021-12-04 10:45:00 Que [facility] TACROLIMUS LEVEL 2021-12-04 10:45:00 Que [facility] MR ABDOMEN WITH & WITHOUT 2021-08-28 12:45:00 Jason Brook Guerreroe [facility] IV [facility] BASIC METABOLIC PANEL 2021-08-07 16:18:00 Lucia, [facility] ALBUMIN 2021-08-07 16:18:00 Lucia, [facility] llege of [facility] FERRITIN 2021-08-07 16:18:00 Lucia, [facility] PTH INTACT 2021-08-07 16:18:00 Lucia, [facility] PHOSPHORUS 2021-08-07 16:18:00 Lucia, [facility] llege of [facility] CBC W/O DIFF W PLT 2021-08-07 16:18:00 [facility], [facility] V[facility] D 25 HYDROXY 2021-08-07 16:18:00 Lucia, [facility] IRON+TIBC+%SAT 2021-08-07 16:18:00 Lucia [facility] llege of [facility] ([facility]) LAB 2021-08-07 14:33:16 Lucia, [facility] llege of [facility] ALBUMIN 2021-08-07 10:18:00 [facility] BASIC METABOLIC PANEL 2021-08-07 10:18:00 [facility] CBC W/O DIFF W PLT 2021-08-07 10:18:00 [facility] 2021-08-07 10:18:00 [facility] IRON+TIBC+%SAT 2021-08-07 10:18:00 [facility] PTH INTACT 2021-08-07 10:18:00 [facility] PHOSPHORUS 2021-08-07 10:18:00 [facility] VITAMIN D 25 HYDROXY 2021-08-07 10:18:00 [facility] CALCIUM 2021-08-07 09:50:03 [facility] ([facility]) LAB 2021-08-07 08:33:16 [facility] BASIC METABOLIC PANEL 2020-10-17 15:33:[address] [facility] ALBUMIN 2020-10-17 15:33:00 Lucia [facility] PTH INTACT 2020-10-17 15:33:00 Lucia [facility] lleg of [facility] PHOSPHORUS 2020-10-17 15:33:00 Lucia [facility] CBC W/O DIFF W PLT 2020-10-17 15:33:00 Lucia [facility] VITAMIN D 25 HYDROXY 2020-10-17 15:33:00 Lucia [facility] IRON+TIBC+%SAT 2020-10-17 15:33:00 Lucia [facility] Plan of Care Planned Activity Planned Date Details Comments Source Future Scheduled 2029-02-[address] [facility] 00:00:00 malignant neoplasm Medical C enter of colon (procedure) [code = 185365705] Future Scheduled 2029-02-[address] [facility] Test 00:00:00 malignant neoplasm Medical C enter of colon (procedure) [code = 604564079] Future Scheduled 2029-02-[address] [facility] Test 00:00:00 malignant neoplasm Medical C enter of colon (procedure) [code = 976416019] Future Scheduled 2029-02-[address] [facility] Test 00:00:00 malignant neoplasm Medical C enter of colon (procedure) [code = 263808610] Future Scheduled 2029-02-[address] [facility] Test 00:00:00 malignant neoplasm Medical C enter of colon (procedure) [code = 074501765] Future Scheduled 2029-02-[address] [facility] [facility] Test 00:00:00 malignant neoplasm Medical C enter of colon (procedure) [code = 589777092] Future Scheduled 2027-01-[address] [facility] Test 00:00:00 (procedure) [code = [facility] 26171484] Future Scheduled 2027-01-[address] [facility] Test 00:00:00 (procedure) [code = [facility] 82633054] Future Scheduled 2027-01-[address] Test 00:00:00 (procedure) [code = [facility] 30927215] Future Scheduled 2023-01-[address] [...] screening Medical C enter (procedure) [code = 776460543] Future Scheduled [address] [facility] Test 00:00:00 aneurysm screening Medical C enter (procedure) [code = 954424813] Future Scheduled 2022-07-01 FALLS RISK SCREENING [facility] Test 00:00:00 [code = FALLS RISK Medical C enter SCREENING] Future Scheduled 2022-07-01 FALLS RISK SCREENING [facility] Test 00:00:00 [code = FALLS RISK Medical C enter SCREENING] Future Scheduled 2022-05-28 ZOSTER VACCINE (1 of [facility] Test 13:31:07 2) [code = ZOSTER of Medicin e VACCINE (1 of 2)] Future Scheduled 2022-05-28 TETANUS SHOT (ADULT) [facility] Test 13:31:07 [code = TETANUS SHOT of Medi cine (ADULT)] Future Scheduled 2022-05-28 COVID-19 Vaccine (3 [facility] 13:31:07 - Moderna risk of Medicine series) [code = COVID-19 Vaccine (3 - Moderna risk series)] Future Scheduled 2022-05-28 FLU VACCINE > 6 [facility] C [facility]lege Test 13:31:07 MONTHS [code = FLU of Medici ne VACCINE > 6 MONTHS] Future Scheduled 2022-05-28 Screening for [facility] Col lege Test 13:31:07 malignant neoplasm of Medici ne of colon (procedure) [code = 649871995] Future Scheduled 2022-03-31 IMM Influenza [facility] 00:00:00 Seasonal (>/= 19 yrs) [code = IMM Influenza Seasonal (>/= 19 yrs)] Future Scheduled 2022-03-31 IMM Influenza [facility] [...] Future Scheduled 2022-02-05 ZOSTER VACCINE (1 of [facility] Test 13:36:03 2) [code = ZOSTER of Medicin e VACCINE (1 of 2)] Future Scheduled 2022-02-05 Pneumococcal [facility] Deborah ege Test 13:36:03 Combined (2 - PPSV23 of Medi cine or PCV20) [code = Pneumococcal Combined (2 - PPSV23 or PCV20)] Future Scheduled 2022-02-05 TETANUS SHOT (ADULT) [facility] [facility] [employer] Test 13:36:03 [code = TETANUS SHOT of Medi cine (ADULT)] Future Scheduled 2022-02-05 COVID-19 Vaccine (3 [employer] Test 13:36:03 - Moderna risk of Medicine series) [code = COVID-19 Vaccine (3 - Moderna risk series)] Future Scheduled 2022-02-05 FLU VACCINE > 6 [facility] Test 13:36:03 MONTHS [code = FLU of Medici ne VACCINE > 6 MONTHS] Future Scheduled 2022-02-05 Screening for [facility] Col [facility]ge Test 13:36:03 malignant neoplasm of Medici ne of colon (procedure) [code = 046569935] Future Scheduled 2022-02-05 IRON+TIBC+%SAT [code Ordered: [facility] Test 13:18:53 = NOCPT] 02/05/2022 of Medicine Future Scheduled 2021-08-27 ZOSTER VACCINE (1 of [facility] Test 19:33:16 2) [code = ZOSTER of Medicin e VACCINE (1 of 2)] Future Scheduled 2021-08-27 Pneumococcal [facility] Test 19:33:16 Combined (1 of 2 - of Medici ne PPSV23) [code = Pneumococcal Combined (1 of 2 - PPSV23)] Future Scheduled 2021-08-27 TETANUS SHOT (ADULT) [facility] Test 19:33:16 [code = TETANUS SHOT of Medi cine (ADULT)] Future Scheduled 2021-08-27 COVID-19 Vaccine (3 [employer] Test 19:33:16 - Moderna risk of Medicine 4-dose series) [code = COVID-19 Vaccine (3 - Moderna risk 4-dose series)] Future Scheduled 2021-08-27 FLU VACCINE > 6 [facility] C [facility]lege Test 19:33:16 MONTHS [code = FLU of Medici ne VACCINE > 6 MONTHS] Future Scheduled 2021-08-27 Screening for [facility] Test 19:33:16 malignant neoplasm of Medici ne of colon (procedure) [code = 976149384] Future Scheduled 2021-08-07 CALCIUM [code = Ordered: [facility] C ollege Test 09:50:03 61453-8] 08/07/2021 of Medicine Future Scheduled 2020-11-06 ZOSTER VACCINE (1 of [facility] Test 15:00:30 2) [code = ZOSTER of Medicin e VACCINE (1 of 2)] Future Scheduled 2020-11-06 TETANUS SHOT (ADULT) [facility] Test 15:00:30 [code = TETANUS SHOT of Medi cine (ADULT)] Future Scheduled 2020-11-06 FLU VACCINE > 6 [facility] C [facility]lege Test 15:00:30 MONTHS [code = FLU of Medici ne VACCINE > 6 MONTHS] Future Scheduled 2020-11-06 Screening for [facility] Test 15:00:30 malignant neoplasm of Medici ne of colon (procedure) [code = 802358517] Future Scheduled 2020-11-04 COVID-19 VACCINE (3 [facility] [...] Future Scheduled 2020-10-17 CALCIUM [code = Ordered: [facility] C [facility]lege Test 10:19:16 16275-5] 10/17/2020 of Medicine Future Scheduled 2019-05-[address] [facility] Test 00:00:00 0-64 YRS (3 - PPSV23 Medical Center or PCV20) [code = PNEUMOCOCCAL VACCINE 0-64 YRS (3 - PPSV23 or PCV20)] Future Scheduled 2019-05-29 PNEUMOCOCCAL 65+ YRS [facility] Test 00:00:00 (3 - PPSV23 or Medical Cente r PCV20) [code = PNEUMOCOCCAL 65+ YRS (3 - PPSV23 or PCV20)] Future Scheduled 2019-05-29 PNEUMOCOCCAL 65+ YRS [facility] Test 00:00:00 (3 - PPSV23 or Medical Cente r PCV20) [code = PNEUMOCOCCAL 65+ YRS (3 - PPSV23 or PCV20)] Future Scheduled 2007 [facility] 00:00:00 malignant neoplasm of colon (procedure) [code = 281908310] Future Scheduled 2007 [facility] 00:00:00 malignant neoplasm of colon (procedure) [code = 865431233] Future Scheduled 2007 SHINGLES VACCINES (1 [facility] [...] s Test 00:00:00 VACCINES (1 - Tdap) Medical Center [code = DTAP/TDAP/TD VACCINES (1 - Tdap)] Future Scheduled 1976 DTAP/TDAP/TD [facility] Test 00:[facility] VACCINES (1 - Tdap) Medical Center [code = DTAP/TDAP/TD VACCINES (1 - Tdap)] Future Scheduled 1976 DTAP/TDAP/TD [facility] Test 00:00:00 VACCINES (1 - Tdap) Medical Center [code = DTAP/TDAP/TD VACCINES (1 - Tdap)] Future Scheduled 1963 Imm Pneumococcal 65+ [facility] Test 00:00:00 (1 - PCV) [code = Imm Pneumococcal 65+ (1 - PCV)] Future Scheduled 1963 Imm Pneumococcal 65+ [facility] Test 00:00:00 (1 - PCV) [code = Imm Pneumococcal 65+ (1 - PCV)] Future Scheduled 1958-01-09 COVID-19 Vaccine [facility] Test 00:00:00 (#1) [code = COVID-19 Vaccine (#1)] Future Scheduled 1958-01-09 COVID-19 Vaccine [facility] Test 00:00:00 (#1) [code = COVID-19 Vaccine (#1)] Future Scheduled [address] [facility] Test 00:00:00 (combo) [code = CT Medical C enter Colonography (combo)] Future Scheduled [address] [facility] Test 00:00:00 malignant neoplasm Medical C enter of colon (procedure) [code = 791736450] Future Scheduled [address] [facility] Test 00:00:00 malignant neoplasm Medical C enter of colon (procedure) [code = 100675829] Future Scheduled 1957 Sigmoidoscopy [code [facility] Test 00:00:00 = Sigmoidoscopy] Medical [facility] Future Scheduled [address] [facility] Test 00:00:00 (combo) [code = CT Medical C enter Colonography (combo)] Future Scheduled [address] [facility] Test 00:00:00 malignant neoplasm Medical C enter of colon (procedure) [code = 653944174] Future Scheduled [address] [facility] Test 00:00:00 malignant neoplasm Medical C enter of colon (procedure) [code = 651797943] Future Scheduled 1957 Sigmoidoscopy [code [facility] Test 00:00:00 = Sigmoidoscopy] Medical [facility] [facility] Future Scheduled [address] [facility] Test 00:00:00 (combo) [code = CT Medical C enter Colonography (combo)] Future Scheduled [address] [facility] Test 00:00:00 malignant neoplasm Medical C enter of colon (procedure) [code = 885810022] Future Scheduled [address] [facility] Test 00:00:00 malignant neoplasm Medical C enter of colon (procedure) [code = 038693897] Future Scheduled 1957 Sigmoidoscopy [code [facility] Test 00:00:00 = Sigmoidoscopy] Medical [facility] [facility] Future Scheduled COVID-19 Vaccine [facility] Test Evaluation [code = of Medici ne COVID-19 Vaccine Evaluation] Future Scheduled ZOSTER VACCINE (1 of [facility] Test 2) [code = ZOSTER of Medicin e VACCINE (1 of 2)] Future Scheduled TETANUS SHOT (ADULT) [employer] Test [code = TETANUS SHOT of Medi cine (ADULT)] Future Scheduled FLU VACCINE > 6 [facility] C ollege Test MONTHS [code = FLU of Medici ne VACCINE > 6 MONTHS] Future Scheduled COLON CANCER [facility] Test SCREENING: of Medicine COLONOSCOPY [code = COLON CANCER SCREENING: COLONOSCOPY] Future Scheduled TETANUS SHOT (ADULT) [employer] Test [code = TETANUS SHOT of Medi cine (ADULT)] Future Scheduled FLU VACCINE > 6 [facility] C ollege Test MONTHS [code = FLU of Medici ne VACCINE > 6 MONTHS] Future Scheduled PREVNAR >= 65 [facility] Col [facility]ge Test (PCV13) [code = of Medicine PREVNAR >= 65 (PCV13)] Future Scheduled COLON CANCER [facility] Test SCREENING: of Medicine COLONOSCOPY [code = COLON CANCER SCREENING: COLONOSCOPY] Future Scheduled BASIC METABOLIC Ordered: [facility] C [facility]lege Test PANEL [code = 06/06/2020 of Medicine 32794-8] Future Scheduled CBC W/O DIFF W PLT Ordered: [facility] r [facility] Test [code = 6690-2] 06/06/2020 of Medicine Future Scheduled BMI FOLLOW UP PLAN [employer] Test [code = BMI FOLLOW of Medici ne UP PLAN] Future Scheduled ZOSTER VACCINE (1 of [employer] Test 2) [code = ZOSTER of Medicin e VACCINE (1 of 2)] Future Scheduled TETANUS SHOT (ADULT) [employer] Test [code = TETANUS SHOT of Medi cine (ADULT)] Future Scheduled FLU VACCINE > 6 [facility] C ollege Test MONTHS [code = FLU of Medici ne VACCINE > 6 MONTHS] Future Scheduled COLON CANCER [facility] Test SCREENING: of Medicine COLONOSCOPY [code = COLON CANCER SCREENING: COLONOSCOPY] Future Scheduled COLONOSCOPY W MAC GI 1 Occurrences [facility] DEPT [code = 69959] starting of Medic ine 02/04/2019 until 08/07/2019 Encounters Start End Encounter Admission Attending Care Care Encounter Source Date/Time Date/Time Type Type Clinicians Facility Department ID 2020-02-23 Inpatient AGUSTIN AYALA Transplant [id number] [facility] 16:04:00 TEODORA 2022-08-08 2022-08-08 Outpatient LORETTA [facility] [id number] 14:00:00 14:00:00 MIGUELINA velazquez [facility] 2022-08-06 2022-08-06 Outpatient [facility] [id number] [place] 00:00:00 00:00:00 [facility] 2022-07-16 2022-07-[address] [facility] [id number] [id number] [facility] 00[facility]00 [facility] 2022-07-16 2022-07-[address] [facility] [id number] [id number] 00:[facility] 00:00:00 [facility] 2022-07-16 2022-07-[address] [facility] [id number] 00:00:00 00:00:00 Only [facility] 2022-07-16 2022-07-16 [id number] [id number] 00:[facility]00 00:00:00 [facility] 2022-07-16 2022-07-[address] [facility] [id number] [id number] 00:[facility]00 00:00:00 [facility] 2022-07-16 2022-07-[address] [facility] [id number] 00:00:00 00:00:00 Only [facility] 2022-07-13 2022-07-13 Office WILLIE Feliciano [id number] Jhonatan 14:15:00 15:42:36 Visit [facility] 2022-07-13 2022-07-13 Office Jodie [facility] [id number] Jhonatan 14:15:00 15:42:36 Visit [facility] 2022-07-13 2022-07-[address] [facility] [id number] [facility] 00:00:00 00:00:00 Orders [facility] 2022-07-13 2022-07-[address] [facility] [id number] [facility] [address] 00:00:00 00:00:00 Orders [facility] 2022-05-21 2022-05-21 Office Roman Myers 1.2.840.114 [id number] [facility] 13:40:00 16:36:49 Visit Nestor AMBULATOR 350.1.13.21 Burt Preston Y 0.2.7.2.686 [id number] Medi michaela 335 e 2022-05-01 2022-05-01 [facility]phone [facility] [id number] [id number] 00:[facility] 00:00:00 [facility] 2022-05-01 2022-05-01 Telephone DonnyFormerly [facility] [id number] 00:[facility]00 00:00:00 [facility] 2022-04-30 2022-04-30 [facility] [id number] 00:00:00 00:00:00 Only [facility] 2022-04-30 2022-04-30 [facility] [id number] 00:00:00 00:00:00 Only Ann [facility] 2022-04-13 2022-04-13 Outpatient [facility] [id number] [place] 00:00:00 00:00:00 Health 2022-03-19 2022-03-19 Telephone [facility] [id number] 00:[facility]00 00:00:00 [facility] 2022-03-19 2022-03-19 Telephone [facility] [id number] [id number] 00:[facility]00 00:00:00 [facility] 2022-02-06 2022-02-06 Telephone DonnyFormerly [facility] [id number] 00:[facility]00 00:00:00 [facility] 2022-02-06 2022-02-06 Telephone [facility] [id number] [id number] 00:[facility]00 00:00:00 [facility] 2022-02-05 2022-02-05 Office Roman Myers [facility] 1.2.840.114 [id number] [facility] 13:00:00 13:36:22 Visit Nestor AMBULATOR 350.1.13.21 [facility] 0.2.7.2.686 [id number] Medi michaela 335 e 2022-01-30 2022-01-[address] [facility] [id number] 00:00:00 00:00:00 [facility] 2022-01-30 2022-01-[address] [facility] [id number] 00:00:00 00:00:00 [facility] 2022-01-16 2022-01-16 [facility] [id number] 10:15:00 23:59:00 Encounter [facility] 2022-01-16 2022-01-16 [facility] [id number] 10:15:00 23:59:00 Encounter [facility] 2022-01-16 2022-01-16 Office Pb [facility] [id number] [facility] 10:40:00 11:00:00 [facility] 2022-01-16 2022-01-16 Office Pb [facility] [id number] 10:40:00 11:00:00 Visit July Hennessy [facility] 2022-01-16 2022-01-16 [facility] [id number] 07:52:45 10:14:00 Encounter [facility] 2022-01-16 2022-01-16 [facility] July Hennessy [facility] [id number] 07:52:45 10:14:00 Encounter [facility] 2022-01-16 2022-01-16 [facility] [id number] 07:52:35 10:14:00 Encounter [facility] 2022-01-16 2022-01-16 [facility] July Hennessy [facility] [id number] 07:52:35 10:14:00 Encounter [facility] 2021-12-29 2021-12-[address] [facility] [id number] 00:00:00 00:00:00 Only [facility] 2021-12-29 2021-12-29 Orders Daniel, [facility] [id number] 00:00:00 00:00:00 Only [facility] 2021-12-21 2021-12-[address] [facility] [id number] 00:00:00 00:00:00 [facility] 2021-12-21 2021-12-21 Telephone Daniel, [facility] [id number] [id number] 00:00:00 00:00:00 [facility] 2021-12-11 2021-12-[address] [facility] [id number] 00:00:00 00:00:00 [facility] 2021-12-11 2021-12-[address] [facility] [id number] 00:00:00 00:00:00 [facility] 2021-12-01 2021-12-[address] [facility] [id number] 00:00:00 00:00:00 Only [facility] 2021-12-01 2021-12-01 Refill Daniel, [facility] [id number] 00:00:00 00:00:00 [facility] 2021-12-01 2021-12-[address] [facility] [id number] 00:00:00 00:00:00 [facility] 2021-12-01 2021-12-[address] [facility] [id number] 00:00:00 00:00:00 Only [facility] 2021-12-01 2021-12-01 Refill Sintuphant, [facility] [id number] 00:00:00 00:00:00 [facility] 2021-12-01 2021-12-01 [address] Sintuprenardt, [facility] [id number] 00:00:00 00:00:00 [facility] 2021-11-06 2021-11-06 Refill Sintuphant, [facility] [id number] 00:00:00 00:00:00 [facility] 2021-11-06 2021-11-06 Ref[address] Sintuphant, [facility] [id number] 00:00:00 00:00:00 [facility] 2021-08-28 2021-08-28 [facility] [id number] 11:28:15 23:59:00 Encounter , [facility] 2021-08-28 2021-08-28 [facility] [id number] [id number] 11:28:15 23:59:00 Encounter , [facility] 2021-08-17 2021-08-[address] [facility] [id number] 00:00:00 00:00:00 Orders [facility] 2021-08-17 2021-08-[address] [facility] [id number] 00:00:00 00:00:00 Orders [facility] 2021-08-16 2021-08-16 [facility] [id number] 23:59:00 23:59:00 Encounter , [facility] 2021-08-16 2021-08-16 [facility] [id number] [facility] 23:59:00 23:59:00 Encounter , [facility] 2021-08-16 2021-08-16 Outpatient [facility] SLE [id number] SLE 00:00:00 00:00:00 , CYRUS 2021-08-16 2021-08-16 Outpatient [facility] [id number] SLE 00:00:00 00:00:00 2021-08-07 2021-08-07 Office ROMAN MYERS [facility] 1.2.840.114 [id number] [facility] 08:33:16 10:48:05 Visit AMBULATOR 350.1.13.21 College Y 0.2.7.2.686 [id number] Medi michaela 335 e 2021-06-26 2021-06-26 [facility] [id number] [facility] 00:00:00 00:00:00 [facility] 2021-06-09 2021-06-09 Telephone [facility] [id number] [facility] 00:00:00 00:00:00 [facility] 2021-06-09 2021-06-09 [facility] [id number] [facility] 00:00:00 00:00:00 [facility] 2021-05-18 2021-05-18 Outpatient [facility] [id number] [facility] 12:31:58 23:59:00 [facility] 2021-05-05 2021-05-05 Outpatient JODIE, [facility] [id number] [place] 13:22:20 15:04:33 [facility] 2021-04-20 2021-04-20 Outpatient [facility] [id number] [facility] 13:12:08 23:59:00 [facility] 2021-03-27 2021-03-27 Outpatient ZULEMA, [facility] [id number] [place] 14:08:39 14:48:51 [facility] 2021-03-21 2021-03-21 Outpatient [place]CM BC [id number] [facility] 13:47:09 23:59:00 Bernadette 2021-03-17 2021-03-17 Outpatient EMILY, [facility] [id number] Jhonatan 10:33:46 14:07:00 [facility] 2021-03-17 2021-03-17 Outpatient EMILY, [facility] [id number] [place] 00:00:00 00:00:00 [facility] 2021-03-17 2021-03-17 Letter [facility], [facility] [id number] [id number] Univers 00:00:00 00:00:00 (Out) [facility] 350.1.13.10 it y of Urgent Care [place] 4.2.7.2.[address] [facility]?Blea [id number] [address] Medical Office Building 2021-03-16 2021-03-16 Letter DENILSON Farrell 1.2.840.114 [id number] Univers 00:00:00 00:00:00 (Out) Evita DURANT 350.1.13.10 it y of [facility] 4.2.7.2.686 Parish as [id number] [address] 2021-03-15 2021-03-[address] [facility] [id number] Univers 16:00:00 16:00:00 RUPINDER velazquez [facility] 2021-03-14 2021-03-14 Outpatient MADDY JULYJORGE A CAICEDO SLE [id number] SLEH 00:00:00 00:00:00 2021-03-14 2021-03-14 Outpatient JULY HENNESSY SLELuz SLE [id number] SLEH 00:00:00 00:00:00 2021-03-14 2021-03-14 Outpatient JULY HENNESSY SLE [id number] SLEH 00:00:00 00:00:00 2021-03-14 2021-03-14 Outpatient JULY DUTTA SLEH SLEH [id number] SLEH 00:00:00 00:00:00 2021-03-14 2021-03-14 Outpatient GINNY SLE SLE [id number] SLEH 00:00:00 00:00:00 [facility] 2021-03-10 2021-03-10 Outpatient ZULEMA, [facility] [id number] [place] 00:00:00 00:00:00 [facility] 2021-02-28 2021-02-28 Outpatient JULY HENNESSY SLELuz SLEH [id number] SLEH 00:00:00 00:00:00 2021-02-28 2021-02-28 Outpatient GINNY SLEH SLEH [id number] [facility]H 00:00:00 00:00:00 [facility] 2021-02-28 2021-02-28 Outpatient EL JULY HENNESSY SLEH SLEH [id number] SLEH 00:00:00 00:00:00 2021-02-28 2021-02-28 Outpatient JULY HENNESSY SLEH SLEH [id number] SLEH 00:00:00 00:00:00 2021-02-28 2021-02-28 Outpatient GINNY SLEH SLEH [id number] SLEH 00:00:00 00:00:00 [facility] 2021-02-28 2021-02-28 Outpatient EL JULY HENNESSY SLEH SLEH [id number] SLEH 00:00:00 00:00:00 2021-02-21 2021-02-21 Outpatient [facility] [id number] [place] [address] 13:40:55 23:59:00 Bernadette 2021-02-14 2021-02-14 Outpatient SLEH SLEH [id number] SLEH 00:00:00 00:00:00 2021-02-14 2021-02-14 Outpatient EL SLEH SLEH [id number] SLEH 00:00:00 00:00:00 2021-02-14 2021-02-14 Outpatient GINNY SLEH SLEH [id number] SLEH 00:00:00 00:00:00 [facility] 2021-02-13 2021-02-13 Outpatient EL SLEH SLEH [id number] SLEH 00:00:00 00:00:00 2021-02-10 2021-02-10 Outpatient [facility] [id number] [place] 00:00:00 00:00:00 Health 2021-02-10 2021-02-10 Outpatient [facility] [id number] [place] 00:00:00 00:00:00 Health 2021-02-02 2021-02-02 Outpatient Z[place]LEMA, [place] [id number] [place] 00:00:00 00:00:00 [facility] 2021-02-02 2021-02-02 Outpatient [facility] [id number] [place] 00:00:00 00:00:00 Health 2021-02-01 2021-02-01 Outpatient [place] [id number] [place] 00:00:00 00:00:00 [facility] 2021-01-31 2021-01-31 Outpatient AGUSTIN NASCIMENTO [facility] [id number] SLE 00:00:00 00:00:00 [facility] 2021-01-24 2021-01-24 Outpatient [facility] [id number] [facility] 13:25:47 23:59:00 Bernadette 2021-01-24 2021-01-24 [facility] [id number] SLE 00:00:00 00:00:00 2021-01-23 2021-01-23 Outpatient FAITH, MARIZOL [facility] [id number] [place] 12:55:10 15:19:16 [facility] 2021-01-23 2021-01-23 Outpatient [facility] [id number] [place] 00:00:00 00:00:00 [facility] 2021-01-23 2021-01-23 [facility] [id number] [place] 00:00:00 00:00:00 [facility] 2021-01-18 2021-01-18 [facility] [id number] [place] 11:05:12 11:39:09 [facility] 2021-01-16 2021-01-16 Outpatient AGUSTIN NASCIMENTO SLE [id number] SLE 00:00:00 00:00:00 JERILYN 2021-01-06 2021-01-06 Outpatient [facility] [id number] [place] 07:00:00 14:50:00 Health 2021-01-06 2021-01-06 Outpatient [facility] [id number] [place] 00:00:00 00:00:00 [facility] 2021-01-05 2021-01-05 Outpatient SLE SLE [id number] SLE 00:00:00 00:00:00 2020-12-30 2020-12-30 [facility] [id number] [place] 07:14:23 10:09:43 On license of [facility] 2020-12-30 2020-12-30 [facility] [id number] [place] 00:00:00 00:00:00 [facility] 2020-12-29 2020-12-29 Outpatient CHESTER HOLDEN [facility] SLE [id number] SLE 00:00:00 00:00:00 JERILYN 2020-12-27 2020-12-27 Outpatient [facility] [id number] [facility] 13:08:48 23:59:00 [facility] 2020-12-27 2020-12-27 Outpatient [facility] [id number] [place] 00:00:00 00:00:00 [facility] 2020-12-26 2020-12-26 Outpatient BRETT [facility] [id number] [place] 09:46:32 10:22:52 , [facility] 2020-11-30 2020-11-30 Outpatient [place]DA [place] [id number] [place] 09:54:29 10:55:52 [facility] 2020-11-24 2020-11-24 Out[facility] [id number] SLE 00:00:00 00:00:00 2020-11-16 2020-11-16 Outpatient [facility] [id number] [place] 00:00:00 00:00:00 [facility] 2020-11-14 2020-11-14 Outpatient [facility] [id number] [place] 00:00:00 00:00:00 Health 2020-11-09 2020-11-09 Outpatient AGUSTIN AYALA Transplant [id number] SLE 19:50:00 19:50:00 TEODORA 2020-10-17 2020-10-17 Office Roman Myers 1.2.840.114 [id number] 09:47:48 16:38:46 Visit Nestor AMBULATOR 350.1.13.21 [place] Y 0.2.7.2.686 [id number] 2020-10-17 2020-10-17 Office ROMAN MYERS 1.2.840.114 [id number] [facility] 09:47:48 16:38:46 Visit AMBULATOR 350.1.13.21 College Y 0.2.7.2.686 of [id number] [facility] 335 e 2020-10-12 2020-10-12 [facility] [id number] [place] 14:56:37 17:12:47 [facility] 2020-10-12 2020-10-12 [facility] [id number] [place] 00:00:00 00:00:00 [facility] 2020-09-25 2020-09-25 Emergency ER SLEH Emergency [id number] SLEH 01:38:00 01:38:00 2020-09-16 2020-09-16 Outpatient EL SLEH SLEH [id number] SLEH 00:00:00 00:00:00 2020-08-23 2020-08-23 Outpatient EL SLEH SLEH [id number] SLEH 00:00:00 00:00:00 2020-08-02 2020-08-02 Outpatient EL SLEH SLEH [id number] [facility]H 00:00:00 00:00:00 2020-07-29 2020-07-29 Emergency ER SLEH Emergency [id number] SLEH 10:01:00 10:01:00 2020-07-26 2020-07-26 Office MAGI Galvan 1.2.840.114 [id number] 09:42:55 10:28:31 Visit Rosi AMBULATOR 350.1.13.21 Jory-Kathei Y 0.2.7.2.686 [id number] 2020-07-26 2020-07-26 Office MAGI Galvan 1.2.840.114 [id number] [facility] 09:42:55 10:28:31 Visit Rosi AMBULATOR 350.1.13.21 College Jory-Kathie Y 0.2.7.2.686 of [id number] [facility] 800 e 2020-07-14 2020-07-14 Outpatient EL SLEH SLEH [id number] SLEH 00:00:00 00:00:00 2020-07-06 2020-07-06 Outpatient EL SLEH SLEH [id number] SLEH 00:00:00 00:00:00 2020-07-03 2020-07-03 Emergency ER SLE Emergency [id number] SLEH 11:03:00 11:03:00 2020-06-20 2020-06-20 Emergency ER SLE Emergency [id number] SLEH 17:49:00 17:49:00 2020-06-17 2020-06-17 Outpatient SLEH SLEH [id number] SLEH 00:00:00 00:00:00 2020-06-17 2020-06-17 Outpatient CHESTER CHANEY SLELuz SLEH [id number] SLEH 00:00:00 00:00:00 DAVE 2020-06-10 2020-06-10 Outpatient CHESTER CHANEY SLE SLE [id number] SLEH 00:00:00 00:00:00 [facility] 2020-06-08 2020-06-08 Outpatient RITU SLELuz SLE [id number] SLEH 00:00:00 00:00:00 DAVE 2020-06-07 2020-06-07 Outpatient CHESTER CHANEY SLE SLE [id number] SLEH 00:00:00 00:00:00 DAVE 2020-06-06 2020-06-06 Office Roman Myers 1.2.840.114 [id number] 09:14:41 10:09:35 Visit Nestor AMBULATOR 350.1.13.21 [place] Y 0.2.7.2.686 [id number] [facility] 2020-06-06 2020-06-06 Office Roman Myers 1.2.840.114 [id number] [facility] 09:14:41 10:09:35 Visit Nestor AMBULATOR 350.1.13.21 Burt Preston Y 0.2.7.2.686 of [id number] [place] [address] e 2020-05-20 2020-05-20 Outpatient CHESTER HICKS, SLEH SLEH [id number] SLEH 00:00:00 00:00:00 [facility] 2020-05-13 2020-05-13 Outpatient EL SLEH SLEH [id number] SLEH 00:00:00 00:00:00 2020-04-24 2020-04-24 Emergency ER SLEH Emergency [id number] SLEH 16:46:00 16:46:00 2020-04-19 2020-04-19 Outpatient CHRISTIANO SEE SLEH SLEH [id number] SLEH 00:00:00 00:00:00 2020-04-19 2020-04-19 Outpatient CHESTER GREEN, SLEH SLEH [id number] SLEH 00:00:00 00:00:00 AARON 2020-04-19 2020-04-19 Outpatient EL SLEH SLEH [id number] SLEH 00:00:00 00:00:00 2020-04-19 2020-04-19 Outpatient EL JOVAN, SLEH SLEH [id number] SLEH 00:00:00 00:00:00 PRATEEK 2020-04-15 2020-04-15 Outpatient CHRISTIANO SEE SLEH SLEH [id number] SLEH 00:00:00 00:00:00 2020-04-15 2020-04-15 Outpatient EL PETER, SLEH SLEH [id number] SLEH 00:00:00 00:00:00 AARON 2020-04-14 2020-04-14 Outpatient EL PETER, SLEH SLEH [id number] SLEH 00:00:00 00:00:00 AARON 2020-04-07 2020-04-07 Outpatient EL PETER, SLEH SLEH [id number] SLEH 00:00:00 00:00:00 AARON 2020-04-07 2020-04-07 Outpatient PETER, SLEH SLEH [id number] SLEH 00:00:00 00:00:00 AARON 2020-04-07 2020-04-07 Outpatient PETER, SLEH SLEH [id number] SLEH 00:00:00 00:00:00 AARON 2020-04-06 2020-04-06 Outpatient SLEH SLEH [id number] SLEH 00:00:00 00:00:00 2020-04-06 2020-04-06 Outpatient PETER, SLEH SLEH [id number] SLEH 00:00:00 00:00:00 AARON 2020-04-06 2020-04-06 Outpatient PETER SLEH SLEH [id number] SLEH 00:00:00 00:00:00 AARON 2020-04-06 2020-04-06 Outpatient EL PETER SLEH SLEH [id number] SLEH 00:00:00 00:00:00 AARON 2020-04-06 2020-04-06 Outpatient SLEH SLEH [id number] SLEH 00:00:00 00:00:00 2020-04-06 2020-04-06 Outpatient SLEH SLEH [id number] SLEH 00:00:00 00:00:00 2020-04-06 2020-04-06 Outpatient SLEH SLEH [id number] [facility]H 00:00:00 00:00:00 2020-04-06 2020-04-06 Outpatient SLEH SLEH [id number] [facility]H 00:00:00 00:00:00 2020-04-06 2020-04-06 Outpatient SLEH SLEH [id number] SLEH 00:00:00 00:00:00 2020-04-06 2020-04-06 Outpatient SLEH SLEH [id number] SLEH 00:00:00 00:00:00 2020-03-09 2020-03-09 Outpatient EL SLEH SLEH [id number] [facility]H 00:00:00 00:00:00 2020-02-29 2020-02-29 Outpatient EL SLEH SLEH [id number] SLEH 00:00:00 00:00:00 2020-02-23 2020-02-23 Outpatient EL SLEH SLEH [id number] SLEH 00:00:00 00:00:00 2020-02-23 2020-02-23 Outpatient JULY HENNESSY SLEH SLEH [id number] SLEH 00:00:00 00:00:00 2020-02-23 2020-02-23 Outpatient SLEH SLEH [id number] SLEH 00:00:00 00:00:00 2020-02-23 2020-02-23 Outpatient EL SLEH SLEH [id number] SLEH 00:00:00 00:00:00 2020-02-03 2020-02-03 Outpatient EL SLEH SLEH [id number] [facility]H 00:00:00 00:00:00 2020-01-26 2020-01-26 Outpatient EL SLEH SLEH [id number] SLEH 00:00:00 00:00:00 2020-01-05 2020-01-05 Outpatient EL SLEH SLEH [id number] SLEH 00:00:00 00:00:00 2019-12-31 2019-12-31 Outpatient EL SLEH SLEH [id number] [facility]H 00:00:00 00:00:00 2019-12-14 2019-12-14 Outpatient CONTRERAS, SLEH SLEH [id number] SLEH 00:00:00 00:00:00 PARXANN 2019-12-10 2019-12-10 Emergency ER SLEH Emergency [id number] SLEH 18:43:00 18:43:00 2019-12-01 2019-12-01 Outpatient EL SLEH SLEH [id number] SLEH 00:00:00 00:00:00 2019-11-05 2019-11-05 Outpatient CHESTER GREEN SLE SLEH [id number] SLEH 08:39:08 08:39:08 AARON 2019-11-05 2019-11-05 Outpatient SLEH SLEH [id number] SLEH 00:00:00 00:00:00 [id number] 2019-10-05 2019-10-05 Outpatient SLEH SLEH [id number] SLEH 00:00:00 00:00:00 [id number] 2019-09-17 2019-09-17 Outpatient SLEH SLEH [id number] SLEH 00:00:00 00:00:00 [id number] 2019-09-09 2019-09-09 Outpatient SLEH SLEH [id number] SLEH 00:00:00 00:00:00 [id number] 2019-09-02 2019-09-02 Outpatient CHRISTIANO CABALLERO SLEH SLEH [id number] SLEH 00:00:00 00:00:00 2019-08-31 2019-08-31 Outpatient SLEH SLEH [id number] SLEH 00:00:00 00:00:00 [id number] 2019-08-26 2019-08-26 Outpatient CHRISTIANO CABALLERO SLEH SLEH [id number] SLEH 00:00:00 00:00:00 2019-06-03 2019-06-03 Outpatient EL SLEH SLEH [id number] [facility] 00:00:00 00:00:00 2019-02-04 2019-02-04 Office MAGI Serrano 1.2.840.114 [id number] 13:15:13 13:45:13 Visit Jordi AMBULATOR 350.1.13.21 Shultz Y 0.2.7.2.686 [id number] 2019-02-04 2019-02-04 Office MAGI Serrano 1.2.840.114 [id number] [facility] 13:15:13 13:45:13 Visit Jordi AMBULATOR 350.1.13.21 [facility] 0.2.7.2.686 of [id number] [facility] 325 e Results Test Description Test Time Test Comments Results Result Comments Source TACROLIMUS LEVEL 2022-05-22 19:17:36 Test Item Value Reference Range Interpretation Comme nts TACROLIMUS BLOOD See_Comment L The therap eutic range for Tacrolimus (test code = (Prograf) rosendo d beestablished for each 81479-4) patient individ ually based on clinicalevaluat ion. Methodology is Ephraim Willem Electroch emiluminescenceImmunoassay. Unless Otherwis e Indicated, All Testing Performed At: [facility], [address] [place] [address] Laborator y Director: Dalton Pan M.D. CLIA Number [id number] [employer] Accreditation N o. [id number] [Automated message] The sy stem which generated this result transmit abdullahi reference range: 5.0 - 20.0 NG/ML. The reference range was not used to interpr et this result as normal/abnormal . Lab Interpretation Abnormal (test code = 36233-4) [facility] [id number] 15:50:14 Test Item Value Reference Range Interpretation Comments WHITE BLOOD CELL COUNT See_Comment [Aut omated message] (test code = 41451-7) The sy stem which generated this result transmitted ref erence range: 3.5 - 11 .0 K/UL. The refer ence range was not u sed to interpret this result as normal/abnor mal. RED BLOOD CELL COUNT See_Comment L [Autom ated message] (test code = 56633-5) The sy stem which generated this result [...] (test code = 24.6 % 40.0-51.0 L 32693-9) MEAN CORPUSCULAR VOLUME 98.0 fL 80.0-99.0 (test code = 60515-7) MEAN CORPUSCULAR 34.7 PG 25.0-33.0 H HEMOGLOBIN (test code = 08319-0) MEAN CORPUSCULAR See_Comment [Automated message] HEMOGLOBIN CONC (test The sy stem which code = 62911-6) generated th is result transmitted ref erence range: 31.0 - 3 6.0 G/DL. The refer ence range was not u sed to interpret this result as normal/abnor mal. RED CELL DISTRIBUTION 13.6 % 11.5-15.0 WIDTH (test code = 01599-1) NEUTROPHILS % (test 69.2 % AUTOMAT ED code = 55956-5) DIFFERENTIAL CONFIRMED WITH MANUAL SL KATY REVIEW. LYMPHOCYTES % (test 15.3 % code = 12931-9) MONOCYTES % (test code 8.1 % = 01191-7) EOSINOPHILS % (test 5.7 % code = 54947-0) BASOPHILS % (test code 1.2 % = 18186-3) IMMATURE GRANULOCYTES 0.5 % (test code = 24777-6) NUCLEATED RBC'S See_Comment [Automated message] MYELOPEROX STAIN (test The s ystem which code = 02756-9) generated th is result transmitted ref erence range: 0.00 - 0 .11 K/UL. The refer ence range was not u sed to interpret this result as normal/abnor mal. PLATELET COUNT (test See_Comment L [Autom ated message] code = 00251-3) The system w hich generated this result transmitted ref erence range: 130 - 40 0 K/UL. The reference r stella was not used to interpret this result as normal/abnor mal. NEUTROPHILS ABSOLUTE See_Comment [Autom ated message] COUNT (test code = The syste m which 60174-7) generated this result transmitted ref erence range: 1.50 - 7 .50 K/UL. The refer ence range was not u sed to interpret this result as normal/abnor mal. LYMPHOCYTES ABSOLUTE See_Comment L [Autom ated message] COUNT (test code = The syste m which 07173-2) generated this result transmitted ref erence range: 1.00 - 4 .00 K/UL. The refer ence range was not u sed to interpret this result as normal/abnor mal. MONOCYTES ABSOLUTE See_Comment [Automat ed message] COUNT (test code = The syste m which 51204-0) generated this result transmitted ref erence range: 0.20 - 1 .00 K/UL. The refer ence range was not u sed to interpret this result as normal/abnor mal. BASOPHILS ABSOLUTE See_Comment [Automat ed message] COUNT (test code = The syste m which 70177-6) generated this result transmitted ref erence range: [...] (test code = (NOTE) FEW E LLIPTOCYTES 39804-0) SLIGHT POIKILOC YTOSIS FEW TEAR DROP C ELLS PLATELETS APPEA R MARKEDLY DECREA SED Unless Otherwis e Indicated, All Testing Performed At: [facility], [address] [place] [address], [place] [address] Laborator y Director: Ben AlcalaIA Number [id number] Cap Accreditation [place] o. 58676-95 Lab Interpretation Abnormal (test code = 18505-6) [facility] Center[facility]PREHENSIVE METABOLIC [id number] 12:01:26 Test Item Value Reference Range Interpretation Comments GLUCOSE (test code = See_Comment H [Autom ated message] 2345-7) The system [employer] generated this result transmitted ref erence range: [...] H [Au tomated message] 2160-0) The system [employer] generated this result transmitted ref erence range: 0.80 - 1 .40 MG/DL. The refe rence range was not u sed to interpret this result as normal/abnor mal. EGFR (test code = See_Comment L [Automate d message] 94639-3) The system [employer] generated this result transmitted ref erence range: >60 ML/MIN/1.73. Th e reference range was not used to int erpret this result as normal/abnormal . BUN/CREAT RATIO (test See_Comment [Auto mated message] code = 3097-3) The system [employer] [facility] generated this result transmitted ref erence range: 6 - 28 R ATIO. The reference r stella was not used to interpret this result as normal/abnor mal. SODIUM (test code = See_Comment H [Automa abdullahi message] 2951-2) The system [employer] generated this result transmitted ref erence range: 133 - 14 6 MEQ/L. The refe rence range was not u sed to interpret this result as normal/abnor mal. POTASSIUM (test code = See_Comment [Aut omated message] 8943-3) The system [employer] generated this result transmitted ref erence range: 3.5 - 5. 4 MEQ/L. The refe rence range was not u sed to interpret this result as normal/abnor mal. CHLORIDE (test code = See_Comment H [Auto mated message] 9185-0) The system [employer] generated this result transmitted ref erence range: 95 - 107 MEQ/L. The reference r stella was not used to interpret this result as normal/abnor mal. CO2 (test code = See_Comment [Automated message] 1962-8) The system [facility] generated this result transmitted ref erence range: 19 - 31 MEQ/L. The reference r stella was not used to interpret this result as normal/abnor mal. CALCIUM (test code = See_Comment [Autom ated message] 32592-9) The system [facility] generated this result transmitted ref erence [...] (test code = See_Comment [Autom ated message] 76402-4) The system [facility] generated this result transmitted ref erence range: 3.5 - 5. 2 G/DL. The reference r stella was not used to interpret this result as normal/abnor mal. GLOBULINS, SERUM, TOTAL (NOTE) See_Comment JAMIE BLE TO CALCULATE (test code = 54190-3) [Autom ated message] The system [facility] generated this result transmitted ref erence range: 1.9 - 3. 7 G/DL. The reference r stella was not used to interpret this result as normal/abnor mal. A/G RATIO (test code = See_Comment H [Aut omated message] 1759-0) The system [facility] generated this result transmitted ref erence range: 1.0 - 2. 6 RATIO. The refe rence range was not u sed to interpret this result as normal/abnor mal. BILIRUBIN TOTAL (test See_Comment H [Auto mated message] code = 1975-2) The system [facility] generated this result transmitted ref erence range: <=1.2 MG /DL. The reference r stella was not used to interpret this result as normal/abnor mal. ALKALINE PHOSPHATASE 157 U/L 40-123 H (test code = 6768-6) AST (SGOT) (test code = 21 U/L 9-50 1920-8) ALT (SGPT) (test code = 18 U/L 5-50 Unl ess Otherwise 1744-2) Indicated, All Testing Performed At: [facility], [address] [place] [address] Laborator y Director: Dalton Pan M.D. CLIA Number [id number] Cap Accreditation N o. Lab Interpretation Abnormal (test code = 12653-0) [facility] Center[facility]ON+TIBC+%[id number] 12:01:26 Test Item Value Reference Range Interpretation Comments IRON (test code = See_Comment [Automate d message] 2498-4) The system [employer] generated this result transmitted ref erence range: 59 - 158 UG/DL. The reference r stella was not used to interpret this result as normal/abnor mal. UIBC (test code = See_Comment L [Automate d message] 2501-5) The system [employer] generated this result transmitted ref erence range: 112 - 34 7 UG/DL. The refe rence range was not u sed to interpret this result as normal/abnor mal. TIBC (test code = See_Comment [Automate d message] 73106-3) The system [employer] generated this result transmitted ref erence range: 250 - 45 0 UG/DL. The refe rence range was not u sed to interpret this result as normal/abnor mal. IRON SATURATION % (test 59 % 20-50 H Unl ess Otherwise code = 2502-3) Indicated, Al l Testing Performed At: [facility], [address] [place] [address], [place] [address] Laborator y Director: Dalton Pan M.D. CLIA Number [id number] Cap Accreditation N o. Lab Interpretation Abnormal (test code = 04458-9) [facility] CenterURIC [id number] 12:01:26 Test Item Value Reference Range Interpretation Comments URIC ACID (test code = See_Comment H Unle ss Otherwise 3084-1) Indicated, All Testing Perform ed At: [facility], [address] [place] [address], [place] [address] Laborator y Director: Dalton Pan M.D. CLIA Number [id number] Cap Accreditation [place] o. 74691-13 [Autom ated message] The sy stem which generated this result transmit abdullahi reference range : 3.7 - 8.0 MG/DL. Th e reference range was not used to int erpret this result as normal/abnormal . Lab Interpretation (test Abnormal code = 67097-5) [facility] Ce[id number] 10:28:39 Test Item Value Reference Range Interpretation Comments PHOSPHORUS (test code = See_Comment Unl ess Otherwise 2777-1) Indicated, All Testing Performed At: [facility], [address] [place] [id number] [place] [address] Director: Dalton Pan M.D. CLIA Number [id number] Cap Accreditation [place] o. 94832-36 [Autom ated message] The sy stem which generated this result transmit abdullahi reference range : 2.5 - 4.5 MG/DL. The reference range was not u sed to interpret this result as normal/abnormal . [facility] CenterURINALYSIS, COMPLETE W/REFLEX TO [id number] 09:21:22 Test Item Value Reference Range Interpretation [...] UA (test code 1+ NEGATIVE A = 68949-9) GLUCOSE UA (test code NEGATIVE NEGATIVE = 5792-7) KETONES UA (test code NEGATIVE NEGATIVE = 5797-6) UROBILINOGEN UA (test See_Comment [Auto mated message] code = 34001-7) The system w hich generated this result transmit abdullahi reference range : <=2.0 MG/DL. Th e reference range was not used to interpret this result as normal/abnormal . BILIRUBIN UA (test NEGATIVE NEGATIVE code = 5770-3) OCCULT BLOOD UA (test NEGATIVE NEGATIVE code = 05423-8) WBC UA (test code = 10-15 See_Comment A [Automa abdullahi message] 28589-0) The system [employer] generated this result transmit abdullahi reference range : 0 - 5 /HPF. The reference range was not used to interpret this result as normal/abnormal . RBC UA (test code = 0-2 See_Comment [Automa abdullahi message] 65757-2) The system [employer] generated this result transmit abdullahi reference range : 0 - 5 /HPF. The reference range was not used to interpret this result as normal/abnormal . EPITHELIAL CELLS (test 0-5 See_Comment [Aut omated message] code = 60196-9) The system [employer] generated this result transmit abdullahi reference range : 0 - 5 /HPF. The reference range was not used to interpret this result as normal/abnormal . BACTERIA (test code = NONE SEEN NONE SEEN 13490-0) CRYSTALS (test code = PRESENT NONE SEEN A CALCI UM OXALATE 5782-8) CRYSTALS HYALINE CASTS (test TRACE NONE-TRACE Unless Otherwise code = 79170-9) Indicated, A ll Testing Perform ed At: [facility], [address] [place] [address] Laborator y Director: Dalton Pan M.D. [place] Number [id number] [facility] [place] [id number] Lab Interpretation Abnormal (test code = 97454-5) [facility] CenterEBV Viral [id number] 15:26:29 Test Item Value Reference Range Interpretation Comments EBV Viral Negative or below the See_Comment [Auto mated Load (test linear range of the message] The code = 2559) assay (<500 IU /mL) system [employer] generated this result transmit abdullahi reference range [...] (2) real-time PCR amplification and detection with IAWH-3-dalsplvy primers and probes. A well-conserved region of the EBNA-1 gene is targeted, along with an internal control sequence used to confirm PCR amplification. Asymptomatic carriers and viral genetic variation, among other factors, can affect the accuracy of nucleic acid testing; therefore, results should be interpreted in light of clinical data. This test was developed and its performance characteristics determined by the [facility] Pathology Department, Section of Molecular Pathology. [...] (2) real-time PCR amplification and detection with OCIW-9-iwzudcrs primers and probes. A well-conserved region of the EBNA-1 gene is targeted, along with an internal control sequence used to confirm PCR amplification. Asymptomatic carriers and viral genetic variation, among other factors, can affect the accuracy of nucleic acid testing; therefore, results should be interpreted in light of clinical data. This test was developed and its performance characteristics determined by the [facility] Pathology Department, Section of Molecular Pathology. It has not been cleared or approved by the U.S. Food and Drug Administration (FDA), since FDA approval is not required for clinical use of the test. Validation was done as required by The Clinical Laboratory Improvement Amendments of 1988. [facility] Center[facility]al [id number] 15:26:29 Test Item Value Reference Range Interpretation Comments EBV Viral Negative or below the See_Comment [Auto mated Load (test linear range of the message] The code = 2559) assay (<500 IU /mL) system w [facility] generated this result transmit abdullahi reference [...] (2) real-time PCR amplification and detection with GUUP-7-uxyvolxr primers and probes. A well-conserved region of the EBNA-1 gene is targeted, along with an internal control sequence used to confirm PCR amplification. Asymptomatic carriers and viral genetic variation, among other factors, can affect the accuracy of nucleic acid testing; therefore, results should be interpreted in light of clinical data. This test was developed and its performance characteristics determined by the [facility] Pathology Department, Section of Molecular Pathology. [...] (2) real-time PCR amplification and detection with UMMM-3-osoftkps primers and probes. A well-conserved region of the EBNA-1 gene is targeted, along with an internal control sequence used to confirm PCR amplification. Asymptomatic carriers and viral genetic variation, among other factors, can affect the accuracy of nucleic acid testing; therefore, results should be interpreted in light of clinical data. This test was developed and its performance characteristics determined by the [facility] Pathology Department, Section of Molecular Pathology. It has not been cleared or approved by the U.S. Food and Drug Administration (FDA), since FDA approval is not required for clinical use of the test. Validation was done as required by The Clinical Laboratory Improvement Amendments of 1988. [facility] CenterEBV Viral [id number] 15:26:29 Test Item Value Reference Range Interpretation Comments EBV Viral Negative or below the See_Comment [Auto mated Load (test linear range of the message] The code = 2559) assay (<500 IU /mL) system w [facility] generated this result transmit abdullahi reference range : <500 - >5,000,000 IU/mL. The reference range was not used to interpret this result as normal/abnormal . LTARELL (test This assay was code = LATRELL) performed by real-time PCR for the detection of the Elina-Joyner virus (EBV) gene EBNA-1. The test is composed of (1) DNA extraction from patient specimen, and (2) real-time PCR amplification and detection with XBVA-2-yokyiawy primers and probes. A well-conserved region of the EBNA-1 gene is targeted, along with an internal control sequence used to confirm PCR amplification. Asymptomatic carriers and viral genetic variation, among other factors, can affect the accuracy of nucleic acid testing; therefore, results should be interpreted in light of clinical data. This test was developed and its performance characteristics determined by the [facility] Pathology Department, Section of Molecular Pathology. [...] (2) real-time PCR amplification and detection with AMOU-7-xbmjrmsx primers and probes. A well-conserved region of the EBNA-1 gene is targeted, along with an internal control sequence used to confirm PCR amplification. Asymptomatic carriers and viral genetic variation, among other factors, can affect the accuracy of nucleic acid testing; therefore, results should be interpreted in light of clinical data. This test was developed and its performance characteristics determined by the [facility] Pathology Department, Section of Molecular Pathology. It has not been cleared or approved by the U.S. Food and Drug Administration (FDA), since FDA approval is not required for clinical use of the test. Validation was done as required by The Clinical Laboratory Improvement Amendments of 1988. [facility] [id number] 15:26:29 Test Item Value Reference Range Interpretation [...] (2) real-time PCR amplification and detection with EFNC-7-xaratmid primers and probes. A well-conserved region of the EBNA-1 gene is targeted, along with an internal control sequence used to confirm PCR amplification. Asymptomatic carriers and viral genetic variation, among other factors, can affect the accuracy of nucleic acidtesting; therefore, results should be interpreted in light of clinical data.This test was developed and its performance characteristics determined by the [facility] Pathology Department,Section of Molecular Pathology. It has [...] real- time PCR amplification and detection with ZRNX-2-uzhgldjg primers and probes. A well-conserved region of the EBNA-1 gene is targeted, along with an internal control sequence used to confirm PCR amplification. Asymptomatic carriers and viral genetic variation, among other factors, can affect the accuracy of nucleic acid testing; therefore, results should be interpreted in light of clinical data.This test was developed and its performance characteristics determined by the [facility] Pathology Department, Section of Molecular Pathology.It has not been cleared or approved by the U.S. Food and Drug Administration (FDA), since FDA approval is not required for clinical use of the test. Validation was done as required by The Clinical Laboratory Improvement Amendments of 1988.CMV PCR, [id number] 16:08:49 Test Item Value Reference Range Interpretation [...] and its performance characteristics determined by the [facility] Pathol ogy Department, Section of Molecular Pathology. It has not been cleared or approved by the U.S. Foodand Drug Administration (FDA), since FDA approval is not required for clinical use of the test. Validation was done as required by The Clinical Laboratory Improvement Amendments of 1988.CT, CHEST, WITHOUT IV [id number] 14:39:00Referring: Dr. Diane Eastman/ [place] for Exam:- >s/p lung transplantReason for Exam:->evaluate for nodules/[facility] : 1955 Sex: MFINAL [...] MDReport Verified Date/Time: 01/16/2022 14:39:07 Reading Location: [facility] Reading Room [address] [place] [address] OLIMUS [id number] 12:59:55 Test Item Value Reference Range Interpretation Comments TACROLIMUS BLOOD 4.2 ng/mL 10.0-20.0 L Test perfor med on Colon (BEAKER) (test code Architec t Immunoassay = 657) system with Chemiluminescen t Microparticle I mmunoassay (CMIA) technolo gy. Actuarial Intern ID - ADMINHEMOGLOBIN [id number] 12:32:56 Test Item Value Reference Range Interpretation Comments HEMOGLOBIN A1C < % See_Comment [Automated m essage] ELECTROPHORESIS (Whisper) The system which (test code = 3811) generated this result transmitted ref erence range: <=5.6%. The reference range was not used to int erpret this result as normal/abnormal . "The A1c is measured using a NGSP-certified method. HbA1c value equal to or greater than 6.5% as thediagnosis cutoff for diabetes. An HbA1c value of 5.7- 6.4% indicates increased risk for diabetes (prediabetes)."Actuarial Intern ID - ADM Urinalysis w/Microscopic + Reflex to [id number] 11:58:22 Test Item Value Reference Range Interpretation Comments Color, UA (test code Yellow = 5778-6) Clarity, UA (test Clear code = 5767-9) Specific [place], UA 1.020 1.001-1.035 (test code = 5811-5) pH, UA (test code = 5.5 5.0-8.0 5803-2) Protein, UA (test Negative Negative code = 51416-0) Glucose, UA (test Negative Negative code = 365) Ketones, UA (test Negative Negative code = 2514-8) Bilirubin, UA (test Negative Negative code = 18609-4) Blood, UA (test code Negative Negative = 26339-5) Nitrite, UA (test Negative Negative code = 5802-4) Leukocytes, UA (test Small Negative A code = 5799-2) Urobilinogen, UA 0.2 mg/dL 0.2-1.0 (test code = 60720-4) RBC, UA (test code = 1 See_Comment [Autom ated 61215-8) message] The system which generated this result [...] Bacteria, UA (test None Seen code = 48361-1) Mucus (test code = Rare 8247-9) Squam Epithel, UA <1 See_Comment [Automate d (test code = 81045-8) messag e] The system which generated this result transmit abdullahi reference range : /HPF. The reference range was not used to interpret this result as normal/abnormal . Hyaline Casts, UA 1 See_Comment [Automate d (test code = 61887-7) messag e] The system which generated this result transmit abdullahi reference range : /LPF. The reference range was not used to interpret this result as normal/abnormal . Crystals, Urine (test None Seen code = 46717-8) Specimen Source (test code = 2795) LATRELL (test code = LATRELL) Actuarial Intern ID - [auto]Actuarial Intern ID - tech Lab Interpretation Abnormal (test code = 29063-3) [facility]inal[facility] + Reflex to Culture 2022-01-16 11:58:22 Test Item Value Reference Range Interpretation Comments Color, UA (test code Yellow = 5778-6) Clarity, UA (test Clear code = 5767-9) Specific [place], UA 1.020 1.001-1.035 (test code = 5811-5) pH, UA (test code = 5.5 5.0-8.0 5803-2) Protein, UA (test Negative Negative code = 52969-9) Glucose, UA (test Negative Negative code = 365) Ketones, UA (test Negative Negative code = 2514-8) Bilirubin, UA (test Negative Negative code = 31782-0) Blood, UA (test code Negative Negative = 88629-5) Nitrite, UA (test Negative Negative code = 5802-4) Leukocytes, UA (test Small Negative A code = 5799-2) Urobilinogen, UA 0.2 mg/dL 0.2-1.0 (test code = 23401-8) RBC, UA (test code = 1 See_Comment [Autom ated 55236-6) message] The system which generated this result [...] Bacteria, UA (test None Seen code = 42487-5) Mucus (test code = Rare 8247-9) Squam Epithel, UA <1 See_Comment [Automate d (test code = 26728-1) messag e] The system which generated this result transmit abdullahi reference range : /HPF. The reference range was not used to interpret this result as normal/abnormal . Hyaline Casts, UA 1 See_Comment [Automate d (test code = 59668-9) messag e] The system which generated this result transmit abdullahi reference range : /LPF. The reference range was not used to interpret this result as normal/abnormal . Crystals, Urine (test None Seen code = 49174-9) Specimen Source (test code = 2795) LATRELL (test code = LATRELL) Actuarial Intern ID - [auto]Actuarial Intern ID - tech Lab Interpretation Abnormal (test code = 30265-6) [facility] + Reflex to Culture 2022-01-16 11:58:22 Test Item Value Reference Range Interpretation Comments Color, UA (test code Yellow = 5778-6) Clarity, UA (test Clear code = 5767-9) Specific [place], UA 1.020 1.001-1.035 (test code = 5811-5) pH, UA (test code = 5.5 5.0-8.0 5803-2) Protein, UA (test Negative Negative code = 70790-3) Glucose, UA (test Negative Negative code = 365) Ketones, UA (test Negative Negative code = 2514-8) Bilirubin, UA (test Negative Negative code = 46407-2) Blood, UA (test code Negative Negative = 36420-2) Nitrite, UA (test Negative Negative code = 5802-4) Leukocytes, UA (test Small Negative A code = 5799-2) Urobilinogen, UA 0.2 mg/dL 0.2-1.0 (test code = 21500-3) RBC, UA (test code = 1 See_Comment [Autom ated 46369-6) message] The system which generated this result [...] Bacteria, UA (test None Seen code = 39983-8) Mucus (test code = Rare 8247-9) Squam Epithel, UA <1 See_Comment [Automate d (test code = 42006-4) messag e] The system which generated this result transmit abdullahi reference range : /HPF. The reference range was not used to interpret this result as normal/abnormal . Hyaline Casts, UA 1 See_Comment [Automate d (test code = 18174-3) messag e] The system which generated this result transmit abdullahi reference range : /LPF. The reference range was not used to interpret this result as normal/abnormal . Crystals, Urine (test None Seen code = 62830-4) Specimen Source (test code = 2795) LATRELL (test code = LATRELL) Actuarial Intern ID - [auto]Actuarial Intern ID - tech Lab Interpretation Abnormal (test code = 83493-3) [facility]/ REFLEX URINE [id number] 11:58:22 Test Item Value Reference Range Interpretation [...] = 1521) SOURCE(BEAKER) (test code = 2795) Actuarial Intern ID - [auto]Actuarial Intern ID - techIMMUNOGLOBULIN G (IGG)2022-01-16 11:46:35 Test Item Value Reference Range Interpretation Comments IMMUNOGLOBULIN G (IGG) < mg/dL See_Comment L [Aut omated message] (BEAKER) (test code = The sy stem which 427) generated this result transmitted ref erence range: 540-1,82 2. The reference range was not used to int erpret this result as normal/abnormal . Actuarial Intern ID - DBOperator ID - DBVITAMIN D, [id number] 11:46:29 Test Item Value Reference Range Interpretation Comments VITAMIN D 25-OH (BEAKER) (test 25.3 ng/mL 6.6-49.9 code = 2764) Effective 04/10/2017: Reference Range ChangeNew: 6.6-49.9 ng/mL Previous: 13.0- 47.8 ng/mLRecommendedVitamin D Target Range: 30.0-40.0 ng/mLOperator ID - DBPSA 2022-01-16 11:46:24 Test Item Value Reference Range Interpretation Comments PROSTATE SPECIFIC ANTIGEN (BEAKER) 0.5 ng/mL 0.0-4.0 (test code = 844) Actuarial Intern ID - [id number] 11:36:03 Test Item Value Reference Range Interpretation Comments MAGNESIUM (BEAKER) (test code = 1.9 mg/dL 1.6-2.6 627) Actuarial Intern ID - DBCOMPREHENSIVE METABOLIC [id number] 11:36:03 Test Item Value Reference Range Interpretation [...] S NOT APPLICABLE FOR DIALYSIS PATIEN TS. Actuarial Intern ID - DBSpecimen slightly ictericLIPID [id number] 11:36:03 Test Item Value Reference Range Interpretation [...] Borderline 130-159 High 160-189 Very High >=190 Actuarial Intern ID - DBSpecimen slightly ictericCreatinine, random [id number] 11:32:44 Test Item Value Reference Range Interpretation Comments Creatinine, Ur 198.4 mg/dL (test code = 2161-8) LATRELL (test code = Reference Range: No LATRELL) NormalsOperator ID - DB [facility] CenterProtein, random [id number] 11:32:44 Test Item Value Reference Range Interpretation Comments Protein, Urine (test code = 14 mg/dL 0-14 2888-6) LATRELL (test code = LATRELL) Actuarial Intern ID - DB Lab Interpretation (test Normal code = 64142-5) [facility] CenterMicroalbumin, random [id number] 11:32:44 Test Item Value Reference Range Interpretation Comments Microalbumin, 2.0 mg/dL Urine (test code = 88478-8) LATRELL (test code = Reference Range: No LATRELL) NormalsOperator ID - DB [facility] CenterCreatinine, random [id number] 11:32:44 Test Item Value Reference Range Interpretation Comments Creatinine, Ur 198.4 mg/dL (test code = 2161-8) LATRELL (test code = Reference Range: No LATRELL) NormalsOperator ID - DB [facility] CenterProtein, random [id number] 11:32:44 Test Item Value Reference Range Interpretation Comments Protein, Urine (test code = 14 mg/dL 0-14 2888-6) LATRELL (test code = LATRELL) Actuarial Intern ID - DB Lab Interpretation (test Normal code = 13245-6) [facility] CenterMicroalbumin, random [id number] 11:32:44 Test Item Value Reference Range Interpretation Comments Microalbumin, 2.0 mg/dL Urine (test code = 49585-6) LATRELL (test code = Reference Range: No LATRELL) NormalsOperator ID - DB [facility] CenterCreatinine, random [id number] 11:32:44 Test Item Value Reference Range Interpretation Comments Creatinine, Ur 198.4 mg/dL (test code = 2161-8) LATRELL (test code = Reference Range: No LATRELL) NormalsOperator ID - DB [facility] CenterProtein, random [id number] 11:32:44 Test Item Value Reference Range Interpretation Comments Protein, Urine (test code = 14 mg/dL 0-14 2888-6) LATRELL (test code = LATRELL) Actuarial Intern ID - DB Lab Interpretation (test Normal code = 31008-3) [facility] CenterMicroalbumin, random [id number] 11:32:44 Test Item Value Reference Range Interpretation Comments Microalbumin, 2.0 mg/dL Urine (test code = 81378-7) LATRELL (test code = Reference Range: No LATRELL) NormalsOperator ID - DB [facility] CenterCREATININE, RANDOM [id number] 11:32:44 Test Item Value Reference Range Interpretation Comments CREATININE URINE (BEAKER) (test 198.4 mg/dL code = 375) Reference Range: No NormalsOperator ID - DBPROTEIN, RANDOM [id number] 11:32:44 Test Item Value Reference Range Interpretation Comments PROTEIN, URINE (BEAKER) (test code = 14 mg/dL 0-14 1569) Actuarial Intern ID - DBMICROALBUMIN, RANDOM [id number] 11:32:44 Test Item Value Reference Range Interpretation Comments MICROALBUMIN URINE (BEAKER) (test 2.0 mg/dL code = 1794) Reference Range: No NormalsOperator ID - DBCBC W/PLT COUNT & AUTO [id number] 11:05:40 Test Item Value Reference Range Interpretation [...] (test code = 2801) RAD, BONE DENSITY [id number] 09:26:00Referring: Dr. Diane Eastman/ [place] for Exam:->halfway use of prednisoneReason for Exam:->s/p lung [facility] : 1955 Sex: [...] for bone mineral density as provided by mobile device engineer is 0.023 g/cm2 for lumbar spine and [...] bone mineral density study. Signed: Rogelio Martinez Verified Date/Time: 01/16/2022 09:26:58 Reading Location: [facility] Room [address] [place] [address] with platelet count + automated [id number] 12:09:00 Test Item Value Reference Range Interpretation Comments WBC (test code = 5.8 See_Comment [Automated ) message] The system which generated this result transmit abdullahi reference range : 3.4 - 10.8 x10E3/uL. The reference range was not used to interpret this result as normal/abnormal . RBC (test code = 2.58 See_Comment LL [Automated 9-8) message] The system which generated this result [...] Hematology Comments: Note: Manual (test code = 4167915) differ ential was performed. LATRELL (test code = LATRELL) Performed at: [facility] [id number] Director: Ortega Santiago MD, Phone: [phone] Lab Interpretation Abnormal (test code = 61119-7) [facility] with platelet count + automated [id number] 12:09:00 Test Item Value Reference Range Interpretation Comments WBC (test code = 5.8 See_Comment [Automated ) message] The system which generated this result transmit abdullahi reference range : 3.4 - 10.8 x10E3/uL. The reference range was not used to interpret this result as normal/abnormal . RBC (test code = 2.58 See_Comment LL [Automated 9-8) message] The system which generated this result [...] LATRELL (test code = LATRELL) Performed at: [facility] [address] [place], [place] [address]Ryw Director: Ortega Santiago MD, Phone: [phone] Lab Interpretation Abnormal (test code = 39241-2) [facility] with platelet count + automated [id number] 12:09:00 Test Item Value Reference Range Interpretation Comments WBC (test code = 5.8 See_Comment [Automated ) message] The system which generated this result transmit abdullahi reference range : 3.4 - 10.8 x10E3/uL. The reference range was not used to interpret this result as normal/abnormal . RBC (test code = 2.58 See_Comment LL [Automated 930-5) message] The system which generated this result [...] (test code = LATRELL) Performed at: [facility] [id number] Director: Ortega Santiago MD, Phone: [phone] Lab Interpretation Abnormal (test code = 48333-6) [facility] CenterMR, ABDOMEN, [id number] 12:35:00Referring: Dr. Diane Eastman/ KINA Unlisted Reason for Exam - Click Yes and Enter Reason Below->Yes Unlisted Reason for Exam->liver protocol, cirrhosis, liver lesions, pancreas lesion, s/p TIPS,HCC screening [facility] : 1955 Sex: [...] 1 cm unilocular cystic lesion. No solid componentor abnormal enhancement is identified. Main pancreatic duct is normal in caliber. Adrenal glands are normal. Kidneys demonstrate no hydronephrosis, or mass. There is trace perihepatic ascites. No adenopathy. Perisplenic varices are noted. Visualized bowel is unremarkable. No suspicious bony lesion. Impression: Cirrhosis and splenomegaly. Patent TIPS. Cholelithiasis. No suspicious liver mass. 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 Suggest continued surveillance. Trace bilateral pleural effusions. Trace ascites. Signed: Judy Perry Verified Date/Time: 09/01/2021 12:35:23 Reading Location: [facility] C013X [facility] Consult Reading Room CBC W/O DIFF W [id number] 06:30:02 Test Item Value Reference Range Interpretation Comments WHITE BLOOD CELL COUNT See_Comment [Aut omated message] (test code = 46491-7) The sy stem which generated this result transmitted ref erence range: 3.5 - 11 .0 K/UL. The refer ence range was not u sed to interpret this result as normal/abnor mal. RED BLOOD CELL COUNT See_Comment L [Autom ated message] (test code = 22119-7) The sy stem which generated this result [...] (test code = 24.0 % 40.0-51.0 L 21817-7) MEAN CORPUSCULAR VOLUME 97.6 fL 80.0-99.0 (test code = 17685-7) MEAN CORPUSCULAR 35.0 PG 25.0-33.0 H HEMOGLOBIN (test code = 56566-6) MEAN CORPUSCULAR See_Comment [Automated message] HEMOGLOBIN CONC (test The sy stem which code = 44619-8) generated th is result transmitted ref erence range: 31.0 - 3 6.0 G/DL. The refer ence range was not u sed to interpret this result as normal/abnor mal. PLATELET COUNT (test See_Comment L [Autom ated message] code = 68329-4) The system w hich generated this result transmitted ref erence range: 130 - 40 0 K/UL. The reference r stella was not used to interpret this result as normal/abnor mal. Comments (test code = (NOTE) NO SP ECIFIC RBC 81239-0) ABNORMALITIES IDENTIFIED PLAT ELETS APPEAR DECREASE D SEE ADDITIONAL COMM ENTS BELOW: PLATELET COUNT CONFIRMED BY RE VIEW OF THE PERIPHERAL SMEAR. NO MORPHOLOGIC ABNORMALITY OF PLATELETS IDENT IFIED. Unless Otherwis e Indicated, All Testing Performed At: [facility], [address] [place] [address] Laborator y Director: Dalton Pan M.D. CLIA Number [id number] Cap Accreditation N o. Lab Interpretation Abnormal (test code = 80821-6) [facility] CenterPTH [id number] 16:33:04 Test Item Value Reference Range Interpretation Comments PARATHYROID HORMONE 136 PG/ML 15-65 H Unless Otherwise INTACT (test code = Indicate d, All 2731-8) Testing Perform ed At: [facility], [address] [place] [address] Laborator y Director: Dalton Pan M.D. CLIA Number [id number] Cap Accreditation N o. Lab Interpretation Abnormal (test code = 14451-9) [facility] CenterFERRITIN2022-02-08 12:03:08 Test Item Value Reference Range Interpretation Comments FERRITIN (test code = See_Comment Unles s Otherwise 75121-9) Indicated, All Testing Performed At: [facility], [address] [place] [address] Laborator y Director: Dalton Pan M.D. CLIA Number [id number] Cap Accreditation N o. [Autom ated message] The sy stem which generated this result transmitted ref erence range: 30 - 400 NG/ML. The reference r stella was not used to int erpret this result as normal/abnormal . [facility] CenterVITAMIN D 25 [id number] 11:47:28 Test Item Value Reference Range Interpretation Comments VITAMIN D 25-HYDROXY SEE BELOW NG/ML NOT E: 25-HYDROXYVITAMIN D (test code = 1989-3) ASSAY I NCLUDES 25-HYDROXYVITAM IN D2 AND [...] O therwise Indicated, All Testing Performed At: [facility], [address] [place] [address] Laboratory Dire ctor: Dalton Pan M.D. CLIA Number [id number] [place]. [id number] [facility] CenterCuhfzyjnVDGFHXBFHA0850-03-30 09:38:27 Test Item Value Reference Range Interpretation Comments PHOSPHORUS (test code = See_Comment Unl ess Otherwise 2777-1) Indicated, All Testing Performed At: [facility], [address] [place] [address] [facility]: Dalton Pan M.D. CLIA Number [id number] Cap Accreditation N o. 01318-98 [Autom ated message] The sy stem which generated this result transmit abdullahi reference range : 2.5 - 4.5 MG/DL. The reference range was not u sed to interpret this result as normal/abnormal . [facility] CenterALBUMIN2022-02-08 09:37:53 Test Item Value Reference Range Interpretation Comments ALBUMIN (test code = See_Comment Unless Otherwise 87269-1) Indicated, All Testing Performed At: [facility], [address] [place] [address] Laborator y Director: Dalton pringle M.D. CLIA Number [id number] Cap Accreditation [place] o. 01146-06 [Automated mess age] The system which ge nerated this result tra nsmitted reference range : 3.5 - 5.2 G/DL. The refer ence range was not used to interpret this result as normal/abnormal . [facility] CenterBASIC METABOLIC [id number] 09:37:53 Test Item Value Reference Range Interpretation [...] H [Au tomated message] 2160-0) The system Inflection generated this result transmitted ref erence range: 0.80 - 1 .40 MG/DL. The refe rence range was not u sed to interpret this result as normal/abnor mal. EGFR (test code = See_Comment L [Automate d message] 85427-0) The system Inflection generated this result transmitted ref erence range: >60 ML/MIN/1.73. Th e reference range was not used to int erpret this result as normal/abnormal . SODIUM (test code = See_Comment [Automa abdullahi message] 0101-2) The system Inflection generated this result transmitted ref erence range: 133 - 14 6 MEQ/L. The refe rence range was not u sed to interpret this result as normal/abnor mal. POTASSIUM (test code = See_Comment [Aut omated message] 0453-3) The system Inflection generated this result transmitted ref erence range: 3.5 - 5. 4 MEQ/L. The refe rence range was not u sed to interpret this result as normal/abnor mal. CHLORIDE (test code = See_Comment H [Auto mated message] 5-0) The system Inflection generated this result transmitted ref erence range: 95 - 107 MEQ/L. The refe rence range was not u sed to interpret this result as normal/abnor mal. CO2 (test code = 1962-8) See_Comment [A utomated message] The system Inflection generated this result transmitted ref erence range: 19 - 31 MEQ/L. The reference r stella was not used to interpret this result as normal/abnor mal. CALCIUM (test code = See_Comment Unless Otherwise 10806-2) Indicated, All Testing Perform ed At: [facility], [address] [facility] [place] [address] Laborator y Director: Dalton Pan M.D. CLIA Number [id number] Cap Accreditation [place] o. 19[address]-71 [Autom ated message] The sy stem which generated this result transmit abdullahi reference range : 8.5 - 10.5 MG/DL. T he reference range was not used to int erpret this result as normal/abnormal . Lab Interpretation (test Abnormal code = 38036-0) [facility] CenterIRON+TIBC+%[id number] 09:37:53 Test Item Value Reference Range Interpretation Comments IRON (test code = See_Comment [Automate d message] 2498-4) The system Inflection generated this result transmitted ref erence range: 59 - 158 UG/DL. The reference r stella was not used to interpret this result as normal/abnor mal. UIBC (test code = See_Comment L [Automate d message] 2501-5) The system Inflection generated this result transmitted ref erence range: 112 - 34 7 UG/DL. The refe rence range was not u sed to interpret this result as normal/abnor mal. TIBC (test code = See_Comment L [Automate d message] 17865-5) The system Inflection generated this result transmitted ref erence range: 250 - 45 0 UG/DL. The refe rence range was not u sed to interpret this result as normal/abnor mal. IRON SATURATION % (test 59 % 20-50 H Unl ess Otherwise code = 2502-3) Indicated, Al l Testing Performed At: [facility], [address] [place] [address] [place] [address] y Director: Dalton Pan M.D. CLIA Number [id number] Cap [place] o. [address]-28 Lab Interpretation Abnormal (test code = 53947-4) [facility] CenterEBV VIRAL [id number] 15:54:00 Test Item Value Reference Range Interpretation [...] (2) real-time PCR amplification and detection with TGFN-3-haioyebc primers and probes. A well-conserved region of the EBNA-1 gene is targeted, along with an internal control sequence used to confirm PCR amplification. Asymptomatic carriers and viral genetic variation, among other factors, can affect the accuracy of nucleic acidtesting; therefore, results should be interpreted in light of clinical data.This test was developed and its performance characteristics determined by the [facility] Pathology Department,Section of Molecular Pathology. It has [...] and its performance characteristics determined by the [facility] Pathol ogy Department, Section of Molecular Pathology. It has not been cleared or approved by the U.S. Foodand Drug Administration (FDA), since FDA approval is not required for clinical use of the test. Validation was done as required by The Clinical Laboratory Improvement Amendments of 1988.BVJ0323-57-56 19:01:00 Test Item Value Reference Range Interpretation Comments PROSTATE SPECIFIC ANTIGEN (KATELYNN) 0.2 ng/mL 0.0-4.0 (test code = 844) Actuarial Intern ID - BSVITAMIN D, [id number] 19:01:00 Test Item Value Reference Range Interpretation Comments VITAMIN D 25-OH (KATELYNN) (test 30.3 ng/mL 6.6-49.9 code = 2764) Effective 04/10/2017: Reference Range ChangeNew: 6.6-49.9 ng/mL Previous: 13.0- 47.8 ng/mLRecommendedVitamin D Target Range: 30.0-40.0 ng/mLOperator ID - BS HEMOGLOBIN [id number] 15:22:00 Test Item Value Reference Range Interpretation Comments HEMOGLOBIN A1C (KATELYNN) (test code = < % 4.3-6.1 L 368) TACROLIMUS [id number] 15:11:00 Test Item Value Reference Range Interpretation Comments TACROLIMUS BLOOD 4.5 ng/mL 10.0-20.0 L Test perfor med on Colon (ANYIRelative.ai) (test code Architec t Immunoassay = 657) system with Chemiluminescen t Microparticle I mmunoassay (CMIA) technolo gy. Actuarial Intern ID - ADMINIMMUNOGLOBULIN G (IGG)2021-02-28 13:50:00 Test Item Value Reference Range Interpretation Comments IMMUNOGLOBULIN G (IGG) < mg/dL See_Comment L [Aut omated message] (Whisper) (test code = The sy stem which 427) generated this result transmitted ref erence range: 540-1,82 2. The reference range was not used to int erpret this result as normal/abnormal . Actuarial Intern ID - SERGIO Gutierrez ID - SERGIO LCOMPREHENSIVE METABOLIC PANEL 2021-02-28 12:48:00 Test Item Value Reference Range Interpretation Comments TOTAL PROTEIN 5.0 gm/dL 6.0-8.3 L (WizMetaAKER) (test code = 770) ALBUMIN (WizMetaAKER) 3.6 g/dL 3.5-5.0 (test code = 1145) [...] S NOT APPLICABLE FOR DIALYSIS PATIEN TS. Actuarial Intern ID - SERGIO LOperator ID - SERGIO LSpecimen slightly ictericMAGNESIUM 2021-02-28 12:27:00 Test Item Value Reference Range Interpretation Comments MAGNESIUM (BEAKER) (test code = 1.7 mg/dL 1.6-2.6 627) Actuarial Intern ID - SERGIO LLIPID [id number] 12:27:00 Test Item Value Reference Range Interpretation [...] Borderline 130-159 High 160-189 Very High >=190 Actuarial Intern ID - SERGIO HOWARDpecimen slightly ictericRAD, CHEST, 2 [id number] 12:13:00Referring: Dr. Diane Eastman/ [place] for Exam:->s/p lung transplant [facility] : 1955 Sex: [...] MDReport Verified Date/Time: 02/28/2021 12:13:10 Reading Location: [facility] Reading Room URINALYSIS W/ REFLEX URINE [id number] 11:12:00 Test Item Value Reference Range Interpretation [...] = 1584) SOURCE(BEAKER) (test code = 2795) Actuarial Intern ID - [auto]Actuarial Intern ID - techCREATININE, RANDOM [id number] 10:58:00 Test Item Value Reference Range Interpretation Comments CREATININE URINE (BEAKER) (test 162.2 mg/dL code = 375) Reference Range: No NormalsOperator ID - PIAYA LPROTEIN, RANDOM [id number] 10:58:00 Test Item Value Reference Range Interpretation Comments PROTEIN, URINE (BEAKER) (test code = 9 mg/dL 0-14 1569) Actuarial Intern ID - PIAYA LMICROALBUMIN, RANDOM [id number] 10:58:00 Test Item Value Reference Range Interpretation Comments MICROALBUMIN URINE (BEAKER) (test 1.6 mg/dL code = 1794) Reference Range: No NormalsOperator ID - PIAYA LCBC W/PLT COUNT & AUTO [id number] 10:42:00 Test Item Value Reference Range Interpretation [...] (BEAKER) (test code = 2801) MR, ABDOMEN, [id number] 10:33:00Referring: Dr. Diane Eastman/ JALAL Patient has CKD 4. Please use Gadolinium Based Contrast Agent: Multihance or Gadovist. Unlisted Reason for Exam - Click Yes and Enter Reason Below->Yes Unlisted Re ason for Exam->cirrhosis, screen for HCC, liver cyst [facility] : 1955 Sex: [...] MDReport Verified Date/Time: 02/02/2021 10:33:11 Reading Location: [facility] C013X Ortho Consult Reading Room -[id number] 13:46:00 Test Item Value Reference Range Interpretation Comments POC-CREATININE 2.3 mg/dL 0.6-1.3 H : TESTED AT [facility]- ([facility]) (test [address], code = 1859) [facility] 7703 0: Actuarial Intern/Techni demetrice ID = [id number] for GenieMichelle POC-EGFR ([facility]) 29 mL/min/1.73M2 (test code = 1860) TACROLIMUS [id number] 10:05:00 Test Item Value Reference Range Interpretation Comments TACROLIMUS BLOOD 3.6 ng/mL 10.0-20.0 L Test perfor med on Colon ([facility]) (test code Architec t Immunoassay = 657) system with Chemiluminescen t Microparticle I mmunoassay (CMIA) technolo gy. Actuarial Intern ID - MARCELLE [id number] 05:38:00 Test Item Value Reference Range Interpretation Comments MAGNESIUM (BEAKER) (test code = 1.7 mg/dL 1.6-2.6 627) Actuarial Intern ID - SERGIO [id number] 05:38:00 Test Item Value Reference Range Interpretation Comments PHOSPHORUS (BEAKER) (test code = 4.0 mg/dL 2.3-4.7 604) Actuarial Intern ID - SERGIO LCOMPREHENSIVE METABOLIC [id number] 05:38:00 Test Item Value Reference Range Interpretation Comments TOTAL PROTEIN 4.1 gm/dL 6.0-8.3 L ([facility]) (test code = 770) ALBUMIN ([facility]) 3.0 g/dL 3.5-5.0 L (test code = [...] S NOT APPLICABLE FOR DIALYSIS PATIEN TS. Actuarial Intern ID - PIAYA LSpecimen slightly ictericCBC W/PLT COUNT & AUTO [id number] 05:30:00 Test Item Value Reference Range Interpretation [...] PERCENT (BEAKER) (test code = 2801) SARS-COV2/RT-PCR ([facility])2020-11-10 04:55:00 Test Item Value Reference Range Interpretation Comments SARS-COV2/RT-PCR (test Negative Not Detected, Negative, code = 4439061) See external report for linked test SARS-COV-2 PERFORMING LAB [facility] TARA (test code = 3592358) Negative result for this test determines that [...] of the Act.Fact Sheet for Healthcare Prov iders:https://www.Magine/sites/default/files/product/documents/Fact_Sheet_HC _Nifykgxhx_Jcky_AOAI-KuF-6.pdfFact Sheet for Healthcare Patients:https://www.Magine/sites/default/files/product/docume nts/Obes_Gbslo_Tkppmfdj_Pfoa_APHZ-OqH-1.pdfPerforming Laboratory:[facility], [place] [address]GWJAVUFTTXZ TIME/INR 2020-11-10 04:45:00 Test Item Value Reference Range Interpretation Comments PROTIME (BEAKER) 17.5 seconds 11.9-14.2 H (test code = 759) INR (BEAKER) (test 1.48 See_Comment [Automat ed message] code = 370) The system Inflection generated this result transmitted ref erence range: [...] S NOT APPLICABLE FOR DIALYSIS PATIEN TS. Actuarial Intern ID - BSCBC (HEMOGRAM ONLY)2020-11-09 21:00:00 Test [...] WBC 0-0 (test code = 413) PTH [id number] 14:22:57 Test Item Value Reference Range Interpretation Comments PARATHYROID HORMONE 210 PG/ML 15-65 H Unless Otherwise INTACT (test code = Indicate d, All 2731-8) Testing Perform ed At: [facility], [address] [facility] [place] [address] Laborator y Director: Dalton Pan M.D. CLIA Number [id number] Cap [place] o. 79[address]-70 Lab Interpretation Abnormal (test code = 09727-0) [facility] CenterVITAMIN D 25 [id number] 11:24:36 Test Item Value Reference Range Interpretation [...] O therwise Indicated, All Testing Performed At: [facility] [address] [address] Laboratory Dire ctor: Dalton Pan M.D. CLIA Number [id number] [place]. [id number] [facility] CenterALBUMIN2021-04-20 09:08:03 Test Item Value Reference Range Interpretation Comments ALBUMIN (test code = See_Comment Unless Otherwise 10951-8) Indicated, All Testing Performed At: [facility], [address] [place] [address] Laborator y Director: Dalton pringle M.D. CLIA Number [id number] Cap Accreditation [place]. 96446-58 [Automated mess age] The system which ge nerated this result tra nsmitted reference range : 3.5 - 5.2 G/DL. The refer ence range was not used to interpret this result as normal/abnormal . [facility] CenterBASIC METABOLIC [id number] 09:08:03 Test Item Value Reference Range Interpretation Comments GLUCOSE (test code = See_Comment H [Autom ated message] 1515-7) The system Turpitudeic h generated this result transmitted ref erence [...] H [Au tomated message] 2160-0) The system Inflection generated this result transmitted ref erence range: 0.80 - 1 .40 MG/DL. The refe rence range was not u sed to interpret this result as normal/abnor mal. EGFR AA (test code = See_Comment L [Autom ated message] 83174-6) The system Inflection generated this result transmitted ref erence range: >60 ML/MIN/1.73. Th e reference range was not used to int erpret this result as normal/abnormal . EGFR (test code = See_Comment L [Automate d message] 81307-2) The system Inflection generated this result transmitted ref erence range: >60 ML/MIN/1.73. Th e reference range was not used to int erpret this result as normal/abnormal . SODIUM (test code = See_Comment [Automa abdullahi message] 2951-2) The system Inflection generated this result transmitted ref erence range: 133 - 14 6 MEQ/L. The refe rence range was not u sed to interpret this result as normal/abnor mal. POTASSIUM (test code = See_Comment [Aut omated message] 6013-3) The system Inflection generated this result transmitted ref erence range: 3.5 - 5. 4 MEQ/L. The refe rence range was not u sed to interpret this result as normal/abnor mal. CHLORIDE (test code = See_Comment H [Auto mated message] 1725-0) The system Inflection generated this result transmitted ref erence range: 95 - 107 MEQ/L. The refe rence range was not u sed to interpret this result as normal/abnor mal. CO2 (test code = 1962-8) See_Comment [A utomated message] The system Inflection generated this result transmitted ref erence range: 19 - 31 MEQ/L. The reference r stella was not used to interpret this result as normal/abnor mal. CALCIUM (test code = See_Comment Unless Otherwise 14762-6) Indicated, All Testing Perform ed At: [facility], [address] [facility] [place] [address] Laborator y Director: Dalton Pan M.D. CLIA Number [id number] [place] Accreditation [place] o. 69133-99 [Autom ated message] The sy stem which generated this result transmit abdullahi reference range : 8.5 - 10.5 MG/DL. T he reference range was not used to int erpret this result as normal/abnormal . Lab Interpretation (test Abnormal code = 92566-9) [facility]+%[id number] 09:08:03 Test Item Value Reference Range Interpretation Comments IRON (test code = See_Comment H [Automate d message] 2498-4) The system Inflection generated this result transmitted ref erence range: 59 - 158 UG/DL. The reference r stella was not used to interpret this result as normal/abnor mal. UIBC (test code = See_Comment L [Automate d message] 2501-5) The system Inflection generated this result transmitted ref erence range: 112 - 34 7 UG/DL. The refe rence range was not u sed to interpret this result as normal/abnor mal. TIBC (test code = See_Comment L [Automate d message] 03841-0) The system Inflection generated this result transmitted ref erence range: 250 - 45 0 UG/DL. The refe rence range was not u sed to interpret this result as normal/abnor mal. IRON SATURATION % (test 75 % 20-50 H Un less Otherwise code = 2502-3) Indicated, Al l Testing Performed At: [facility], [address] [place] [address] Laborator y Director: Dalton Pan M.D. CLIA Number [id number] Cap Accreditation [place] o. [id number] Lab Interpretation Abnormal (test code = 92086-5) [facility] [id number] 09:06:58 Test Item Value Reference Range Interpretation Comments PHOSPHORUS (test code = See_Comment Unl ess Otherwise 2777-1) Indicated, All Testing Performed At: [facility], [address] [place] [address] [facility] Director: Dalton Pan M.D. CLIA Number [id number] Cap Accreditation N o. 32523-46 [Autom ated message] The sy stem which generated this result transmit abdullahi reference range : 2.5 - 4.5 MG/DL. The reference range was not u sed to interpret this result as normal/abnormal . [facility] W/O DIFF W [id number] 07:47:30 Test Item Value Reference Range Interpretation Comments WHITE BLOOD CELL COUNT See_Comment [Aut omated message] (test code = 46455-0) The sy stem which generated this result transmitted ref erence range: 3.5 - 11 .0 K/UL. The refer ence range was not u sed to interpret this result as normal/abnor mal. RED BLOOD CELL COUNT See_Comment L [Autom ated message] (test code = 68126-0) The sy stem which generated this result [...] (test code = 22.6 % 40.0-51.0 L 54450-9) MEAN CORPUSCULAR VOLUME 99.6 fL 80.0-99.0 H (test code = 82299-8) MEAN CORPUSCULAR 35.2 PG 25.0-33.0 H HEMOGLOBIN (test code = 58085-2) MEAN CORPUSCULAR See_Comment [Automated message] HEMOGLOBIN CONC (test The sy stem which code = 75042-6) generated th is result transmitted ref erence range: 31 - 36 G/DL. The reference r stella was not used to interpret this result as normal/abnor mal. PLATELET COUNT (test See_Comment L Unless Otherwise code = 06254-9) Indicated, A ll Testing Perform ed At: [facility], [address] [facility] [place] [address] Laborator y Director: Dalton Pan M.D. [place] Number [id number] Cap Accreditation N o. 87679-69 [Autom ated message] The sy stem which generated this result transmit abdullahi reference range : 130 - 400 K/UL. The reference range was not used to int erpret this result as normal/abnormal . Lab Interpretation (test Abnormal code = 90795-2) [facility] CenterTACROLIMUS [id number] 11:13:00 Test Item Value Reference Range Interpretation Comments TACROLIMUS BLOOD 3.5 ng/mL 10.0-20.0 L Test perfor med on Colon (BEAKER) (test code Architec t Immunoassay = 657) system with Chemiluminescen t Microparticle I mmunoassay (CMIA) technolo gy. Actuarial Intern ID - SAMY [id number] 06:49:00 Test Item Value Reference Range Interpretation Comments MAGNESIUM (BEAKER) (test code = 1.9 mg/dL 1.6-2.6 627) Actuarial Intern ID - CASEY MBASIC METABOLIC [id number] 06:49:00 Test Item Value Reference Range Interpretation [...] S NOT APPLICABLE FOR DIALYSIS PATIEN TS. Actuarial Intern ID - CASEY MSpecimen slightly ictericCBC W/PLT COUNT & AUTO [id number] 06:12:00 Test Item Value Reference Range Interpretation [...] 417) IMMATURE 1 % 0-1 GRANULOCYTES-RELATIVE PERCENT (ANYIAKER) (test code = 2801) TACROLIMUS [id number] 14:50:00 Test Item Value Reference Range Interpretation Comments TACROLIMUS BLOOD 8.7 ng/mL 10.0-20.0 L Test perfor med on Colon (KATELYNN) (test code Architec t Immunoassay = 657) system with Chemiluminescen t Microparticle I mmunoassay (CMIA) technolo gy. Actuarial Intern ID - [id number] 11:10:00 Test Item Value Reference Range Interpretation Comments MAGNESIUM (KATELYNN) (test code = 1.8 mg/dL 1.6-2.6 627) Actuarial Intern ID - GENARO CSARS-COV2/RT-PCR ([facility])2020-09-25 09:54:00 Test Item Value Reference Range Interpretation Comments SARS-COV2/RT-PCR (test Negative Not Detected, Negative, code = 2948373) See external report for linked test SARS-COV-2 PERFORMING LAB [facility] (test code = 8447087) Negative result for this test determines that [...] of the Act.Fact Sheet for Healthcare Prov iders:https://www.Magine/sites/default/files/product/documents/Fact_Sheet_HC _Jakaydaqt_Hvsl_ZIIU-CxT-6.pdfFact Sheet for Healthcare Patients:https://www.Magine/sites/default/files/product/docume nts/Amsi_Jexhf_Drlpbfhx_Jqga_GKDV-GsU-6.pdfPerforming Laboratory:[facility], [place] [address]LMX, CHEST, 1 VIEW, NON [id number] 09:53:00Referring: Dr. Diane Eastman/ [place] for exam:- >ALTERED MENTAL STATUSShould this be performed at the bedside?->Yes [facility] 1955 Sex: MFINAL [...] MDReport Verified Date/Time: 09/25/2020 09:53:27 Reading Location: [facility] C013V Neuro Reading Room URINALYSIS W/ REFLEX URINE [id number] 04:36:00 Test Item Value Reference Range Interpretation [...] = 1584) SOURCE(BEAKER) (test code = 2795) Actuarial Intern ID - [auto]Actuarial Intern ID - techBASIC METABOLIC [id number] 03:24:00 Test Item Value Reference Range Interpretation [...] S NOT APPLICABLE FOR DIALYSIS PATIEN TS. Actuarial Intern ID [place] Moraesimen slightly ictericHEPATIC FUNCTION [id number] 03:24:00 Test Item Value Reference Range Interpretation [...] (test code = 36 U/L 6-55 347) Actuarial Intern ID [place] Gr slightly [id number] 03:12:00 Test Item Value Reference Range Interpretation Comments AMMONIA (BEAKER) (test code = 348) 63 mol/L 18-72 Actuarial Intern ID [place] PEÑA [id number] 03:11:00 Test Item Value Reference Range Interpretation [...] mechanical heart valves.CBC W/PLT COUNT & AUTO [id number] 03:10:00 Test Item Value Reference Range Interpretation [...] (test code = 2801) CT, BRAIN, WITHOUT [id number] 02:42:00Referring: Dr. Diane Eastman/ [place] for exam:->confusionWhat is the patient's sedation requirement?- >No SedationCOL[facility] : 1955 Sex: MFINAL REPORT EXAM: CT head without contrast. CLINICAL HISTORY: Altered mental status. Confusion. COMPARISON: Head CT 07/29/2020. TECHNIQUE: CT images of the head were obtained without intravenous contrast. This exam was performed according to our departmental dose optimization program which includes automated exposure control, adjustment of the mA and/or kV according to patient'ssize and/or use of iterative reconstructive technique. FINDINGS: There is no acute intracranial hemorrhage, extra-axial fluid collection, mass effect, herniation, hydrocephalus or large demarcated acute territorial infarct. The basal cisterns are patent. There are bilateral lens replacements. The visualized paranasal sinuses and tympanomastoid cavities are clear. The skull base and calvarium are intact. IMPRESSION: No acute intracranial hemorrhage, mass effect or hydrocephalus. Signed: Jace Yee Verified Date/Time: 09/25/2020 02:42:37 AFB CULTURE + SMEAR (NON-SPUTUM)2020-08-15 10:06:00 Test Item Value Reference Range Interpretation Comments CULTURE (BEAKER) (test No acid-fast bacilli code = 1095) isolated in 42 days AFB SMEAR (BEAKER) No acid fast bacilli (test code = 994) seen CMV PCR, [id number] 11:20:00 Test Item Value Reference Range Interpretation Comments CMV VIRAL LOAD - Testing per formed at POSITIVE (BEAKER) (test Ques t Diagnostics code = 1557) CMV VIRAL LOAD - Testing per formed at NEGATIVE (BEAKER) (test Ques t Diagnostics code = 2558) BLOOD [id number] 14:00:00 Test Item Value Reference Range Interpretation Comments CULTURE (BEAKER) (test No growth in 5 days code = 1095) BLOOD [id number] 12:00:00 Test Item Value Reference Range Interpretation Comments CULTURE (BEAKER) (test No growth in 5 days code = 1095) BASIC METABOLIC [id number] 06:37:00 Test Item Value Reference Range Interpretation [...] S NOT APPLICABLE FOR DIALYSIS PATIEN TS. Actuarial Intern ID - PIANTONIO [id number] 06:30:00 Test Item Value Reference Range Interpretation Comments MAGNESIUM (BEAKER) (test code = 2.0 mg/dL 1.6-2.6 627) Actuarial Intern ID - SERGIO LHEPATIC FUNCTION [id number] 06:30:00 Test Item Value Reference Range Interpretation [...] (test code = 30 U/L 6-55 347) Actuarial Intern ID - SERGIO LPT/[id number] 06:05:00 Test Item Value Reference Range Interpretation [...] mechanical heart valves.CBC W/PLT COUNT & AUTO [id number] 05:55:00 Test Item Value Reference Range Interpretation [...] 0-1 PERCENT (BEAKER) (test code = 2801) [id number] 07:14:00 Test Item Value Reference Range Interpretation Comments MAGNESIUM (BEAKER) (test code = 2.0 mg/dL 1.6-2.6 627) Actuarial Intern ID - PIANTONIO LHEPATIC FUNCTION [id number] 07:14:00 Test Item Value Reference Range Interpretation [...] (test code = 25 U/L 6-55 347) Actuarial Intern ID - SERGIO LSpecimen slightly ictericBASIC METABOLIC [id number] 07:14:00 Test Item Value Reference Range Interpretation [...] S NOT APPLICABLE FOR DIALYSIS PATIEN TS. Actuarial Intern ID - SERGIO LSpecimen slightly ictericPT/[id number] 06:20:00 Test Item Value Reference Range Interpretation [...] mechanical heart valves.CBC W/PLT COUNT & AUTO [id number] 06:16:00 Test Item Value Reference Range Interpretation [...] (test code = 2801) VITAMIN B12 AND [id number] 14:36:00 Test Item Value Reference Range Interpretation Comments VITAMIN B12 (BEAKER) (test code = 505 pg/mL 213-816 774) FOLATE (BEAKER) (test code = 362) 32.30 ng/mL >=7.00 Actuarial Intern ID - EDASIOperator ID - [id number] 14:33:00 Test Item Value Reference Range Interpretation Comments FERRITIN (BEAKER) (test code = 425.01 ng/mL 5.00-275.00 H 361) Actuarial Intern ID - EDASITSH/FREE T4 IF [id number] 14:28:00 Test Item Value Reference Range Interpretation Comments THYROID STIMULATING HORMONE 4.181 uIU/mL 0.350-4.940 (BEAKER) (test code = 772) Actuarial Intern ID - DBIRON, TIBC, % SAT. (WITHOUT FERRITIN)2020-07-30 13:13:00 Test Item Value Reference Range Interpretation Comments IRON (BEAKER) (test code = 547) 90.0 ug/dL 40.0-160.0 TOTAL IRON BINDING CAPACITY 156 ug/dL 250-450 L (BEAKER) (test code = 769) IRON % SATURATION (2) (BEAKER) 58 % 20-55 H (test code = 2590) Actuarial Intern ID - EDASIHEMOGLOBIN AND [id number] 12:48:00 Test Item Value Reference Range Interpretation Comments HEMOGLOBIN (BEAKER) (test code = 6.0 GM/DL 13.7-17.5 LL 410) HEMATOCRIT (BEAKER) (test code = 18.3 % 40.1-51.0 L 411) Actuarial Intern ID - 6000U/S, ABDOMINAL, [id number] 09:00:00Referring: Dr. Diane Eastman/ KINA Labs to be ordered:->Body Fluid Culture (w/Gram Stain, C\\T\\S)Labs to be ordered:->Cell Count Reason for exam:->ALTERED MENTAL STATUSCOL[facility] : 1955 Sex: MFINAL REPORT History: Ascites. PROCEDURE: Limited sonographic examination of the abdomen was performed in preparation for planned ultrasound- guided paracentesis. Limited sonographic examination of the abdomen showed no ascites. Therefore, paracentesis was not performed. IMPRESSION: 1. No ascites, not enough for planned paracentesis. Signed: Edmund Barraza Verified Date/Time: 07/30/2020 09:00:16 Reading Location: [address] Ultrasound Reading Room CBC W/PLT COUNT & AUTO [id number] 08:41:00 Test Item Value Reference Range Interpretation [...] (BEAKER) (test code = 2801) BASIC METABOLIC [id number] 07:50:00 Test Item Value Reference Range Interpretation [...] S NOT APPLICABLE FOR DIALYSIS PATIEN TS. Actuarial Intern ID - EDASISpecimen slightly [id number] 07:49:00 Test Item Value Reference Range Interpretation Comments MAGNESIUM (BEAKER) (test code = 2.0 mg/dL 1.6-2.6 627) Actuarial Intern ID - EDASIHEPATIC FUNCTION [id number] 07:49:00 Test Item Value Reference Range Interpretation [...] (test code = 29 U/L 6-55 347) Actuarial Intern ID - EDASISpecimen slightly ictericPT/[id number] 07:38:00 Test Item Value Reference Range Interpretation Comments PROTIME (KATELYNN) (test code = 17.5 seconds 11.9-14.2 H 759) INR (KATELYNN) (test code = 370) 1.48 <=5.90 PARTIAL THROMBOPLASTIN TIME 33.6 seconds 22.5-36.0 (KATELYNN) (test code = 760) Effective 11/26/2018: PT Reference Range ChangeNew: 11.9-14.2 Previous: 11.7- 14.7RECOMMENDED COUMADIN/WARFARIN INR THERAPY RANGESSTANDARD DOSE: 2.0-3.0 Includes: PROPHYLAXIS for venous thrombosis, systemic embolization; TREATMENT for venous thrombosis and/or pulmonary embolus.HIGH RISK: Target INR is 2.5-3.5 for patients wiht mechanical heart valves.SARS-COV2/INFLUENZA/RSV RT-PCR 2020-07-29 19:02:00 Test Item Value Reference Range Interpretation Comments SARS-COV2/RT-PCR Negative Negative (test code = 2059612) INFLUENZA A RT-PCR Negative Negative (test code = 0680599) INFLUENZA B RT-PCR Negative Negative (test code = 1193834) RSV RT-PCR (test Negative Negative Performance of the Xpert code = 1697191) Xpress SARS- CoV-2/Flu/RSV test has only b [...] iological data, and other data available to th e clinician evalu ating the patient. Invali [...] sooner.Fact She et for Healthcare Prov iders: https://www.WebPay.com/D ocuments/Xpert% 20Xpress%2 4OEIB-RnA-8-Flu -RSV/302-4 508%20Rev.%20B% 20HCP%20Fa ct%20Sheet.pdfF act Sheet for Healthcare Patients: https://www.e-Merges.comid.com/D ocuments/Xpert% 20Xpress%2 2GTUV-XmA-5-Flu -RSV/302-4 507%20Rev.%20B% 20Patient% 20Fact%20Sheet. pdf PROTEIN, RANDOM [id number] 16:42:00 Test Item Value Reference Range Interpretation Comments PROTEIN, URINE (BEAKER) (test code = 11 mg/dL 014 1568) Actuarial Intern ID - DBSODIUM, RANDOM [id number] 16:42:00 Test Item Value Reference Range Interpretation Comments SODIUM URINE (BEAKER) (test code = 37 meq/L 243) Reference Range: No NormalsOperator ID - DBUREA NITROGEN, RANDOM [id number] 14:39:00 Test Item Value Reference Range Interpretation [...] Range: No NormalsOperator ID - SAMY MOSMOLALITY, [id number] 13:42:00 Test Item Value Reference Range Interpretation Comments OSMOLALITY URINE (BEAKER) (test 434 mOsm/kg 50-1,200 mOsm/kg code = 614) URINALYSIS W/ [id number] 13:42:00 Test Item Value Reference Range Interpretation [...] 1 /HPF SOURCE(BEAKER) (test code = 2795) Actuarial Intern ID - [auto]Actuarial Intern ID - [auto]LACTIC ACID, [id number] 13:02:00 Test Item Value Reference Range Interpretation Comments LACTATE BLOOD VENOUS (2) (BEAKER) 1.84 mmol/L 0.50-2.20 (test code = 2872) Actuarial Intern ID - EDASISpecimen slightly ictericRAD, CHEST, 1 VIEW, NON DEPT 2020-07-29 12:11:00Referring: Dr. Diane Eastman/ [place] for exam:- >ALTERED MENTAL STATUSShould this be performed at the bedside?->Yes [facility] : 1955 Sex: MFINAL [...] MDReport Verified Date/Time: 07/29/2020 12:11:10 Reading Location: [facility] Radiology Reading Room TROPONIN [id number] 11:30:00 Test Item Value Reference Range Interpretation [...] failure, acidosis, acute neurological disease, and persistent tachyarrhythmia.Actuarial Intern ID [place] PABLO MBASIC METABOLIC [id number] 11:26:00 Test Item Value Reference Range Interpretation [...] S NOT APPLICABLE FOR DIALYSIS PATIEN TS. Actuarial Intern ID [place] PABLO MSpecimen slightly ictericHEPATIC FUNCTION [id number] 11:26:00 Test Item Value Reference Range Interpretation [...] (test code = 34 U/L 6-55 347) Actuarial Intern ID [place] Floresecimepino slightly ictericPROTHROMBIN TIME/[id number] 11:23:00 Test Item Value Reference Range Interpretation [...] for patients wiht mechanical heart valves.LACTIC ACID, [id number] 11:20:00 Test Item Value Reference Range Interpretation Comments LACTATE BLOOD VENOUS (2) (BEAKER) 2.31 mmol/L 0.50-2.20 H (test code = 2872) Actuarial Intern ID [place] Floresecimen slightly [id number] 11:16:00 Test Item Value Reference Range Interpretation Comments AMMONIA (BEAKER) (test 52 mol/L 18-72 Speci men slightly code = 348) hemolyzed Actuarial Intern ID [place] PABLO MCT, BRAIN, WITHOUT [id number] 11:14:00Referring: Dr. Diane Eastman/ [place] for exam:->ALTERED MENTAL STATUSWhat is the patient's sedation requirement?->No Sedation [facility] DOB: 1955 Sex: MFINAL REPORT CT, BRAIN, WITHOUT [...] MDReport Verified Date/Time: 07/29/2020 11:14:58 Reading Location: [address] Neuro Reading Room Elec tronically signed by: FITZ FERNANDEZ MD on 07/29/2020 11:14 AMCBC W/PLT COUNT & AUTO [id number] 11:12:00 Test Item Value Reference Range Interpretation [...] (BEAKER) (test code = 2801) BLOOD GAS, [id number] 11:04:00 Test Item Value Reference Range Interpretation [...] (BEAKER) (test code = 1819) 21.0 POCT-GLUCOSE [id number] 10:23:00 Test Item Value Reference Range Interpretation Comments POC-GLUCOSE METER 114 mg/dL 70-110 H : TESTED A T BSC 6720 (BEAKER) (test code = [place], 1538) [address]: Actuarial Intern/Techni demetrice ID = [id number] for FITZ HOLDEN FUNGUS CULTURE + [id number] 23:36:00 Test Item Value Reference Range Interpretation Comments CULTURE (BEAKER) (test No fungus isolated in code = 1095) 28 days FUNGUS SMEAR (BEAKER) No fungi seen (test code = 1406) BODY FLUID CULTURE + GRAM [id number] 11:14:00 Test Item Value Reference Range Interpretation Comments CULTURE (BEAKER) (test code No growth = 1095) GRAM STAIN RESULT (BEAKER) <1+ WBCs (test code = 1123) GRAM STAIN RESULT (BEAKER) No organisms seen (test code = 26407) U/S, [id number] 22:47:00Referring: Dr. Diane Eastman/ Beto to be ordered:->Cell CountLabs to be ordered:->Body Fluid Culture (w/Gram Stain, C\\T\\S)Reason for exam:->ascites [facility] : 1955 Sex: MFINAL REPORT Ultrasound guided paracentesis Clinical History: Ascites. Sedation: None. Fiberglass Autobody Repairer: Aure Huerta PA-C Supervising Physician: Denilson Liao MD Product Safety Administrator: None. Estimated Blood Loss: < 1 mL. [...] anesthesia was achieved with lidocaine, a 5 Qatari one-step catheter was advanced into the peritoneal cavity under ultrasound guidance. After completion of drainage, the catheter was removed. There was no evidence of complication. Impression:Successful ultrasound guided paracentesis. Signed: Denilson Liao MDReport Verified Date/Time: 07/08/2020 22:47:46 Reading Location: [address] Ultrasound Reading Room BLOOD [id number] 14:01:00 Test Item Value Reference Range Interpretation Comments CULTURE (BEAKER) (test No growth in 5 days code = 1095) BLOOD [id number] 13:02:00 Test Item Value Reference Range Interpretation Comments CULTURE (BEAKER) (test No growth in 5 days code = 1095) TACROLIMUS [id number] 11:01:00 Test Item Value Reference Range Interpretation Comments TACROLIMUS BLOOD 3.4 ng/mL 10.0-20.0 L Test perfor med on Colon (BEAKER) (test code Architec t Immunoassay = 657) system with Chemiluminescen t Microparticle I mmunoassay (CMIA) technolo Actuarial Intern ID - MARCELLE FCOMPREHENSIVE METABOLIC [id number] 07:32:00 Test Item Value Reference Range Interpretation [...] S NOT APPLICABLE FOR DIALYSIS PATIEN TS. Actuarial Intern ID - CASEY MCBC W/PLT COUNT & AUTO [id number] 06:57:00 Test Item Value Reference Range Interpretation [...] (BEAKER) (test code = 2801) U/S, ABDOMINAL, [id number] 19:29:00Referring: Dr. Diane Eastman/ KINA stein for TIPS assessment Reason for exam:->doppler for TIPS assessment [facility] : 1955 Sex: MFINAL [...] flow directionality. 3. Cholelithiasis. Signed: Ken Huerta [facility] Verified Date/Time: 07/06/2020 19:29:38 U/S, DUPLEX, [id number] 19:29:00Referring: Dr. Diane Eastman/ KINA steni for TIPS assessment Reason for exam:->doppler for TIPS assessment [facility] : 1955 Sex: [...] 07/06/2020 19:29:38 BODY FLUID CELL COUNT WITH [id number] 18:12:00 Test Item Value Reference Range Interpretation [...] = 2873) BODY FLUID CULTURE + GRAM [id number] 13:45:00 Test Item Value Reference Range Interpretation Comments CULTURE (BEAKER) (test code No growth = 1095) GRAM STAIN RESULT (BEAKER) <1+ WBCs (test code = 1123) GRAM STAIN RESULT (BEAKER) No organisms seen (test code = 25039) BODY FLUID CULTURE + GRAM [id number] 13:44:00 Test Item Value Reference Range Interpretation Comments CULTURE (BEAKER) (test code No growth = 1095) GRAM STAIN RESULT (BEAKER) 1+ WBCs (test code = 1123) GRAM STAIN RESULT (BEAKER) No organisms seen (test code = 41666) [id number] 11:44:00Medical Cytology Report Case: [id number] Authorizing Provider: Peter Mercado MD Collected: 07/03/2020 02:54 PM Ordering Location: [facility] Emergency Department Received: 07/04/2020 02:19 PM Pathologist: Angella Delgado MD Specimen: Paracentesis PERITONEAL FLUID (CYTOSPINS AND CELL BLOCK):- NEGATIVE FOR MALIGNANCY - Mixed inflammation (chronic and acute) Signing Pathologist Direct Phone Line: [phone] signed by Angella Delgado MD on 07/06/2020 at 11:44 [id number]; common variable immunodeficiency, bronchiectasis/COPD s/p bilateral lung transplant (2015), 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 [facility], Department of Pathology, [address] [place] [address], [facility] of [facility], [address] [place] [address], [facility], [facility] of [facility], [address] [place] [address], NDTPNOFMNY [id number] 10:33:00 Test Item Value Reference Range Interpretation Comments TACROLIMUS BLOOD 3.2 ng/mL 10.0-20.0 L Test perfor med on Colon (BEAKER) (test code Architec t Immunoassay = 657) system with Chemiluminescen t Microparticle I mmunoassay (CMIA) technolo gy. Actuarial Intern ID - EMERSONCOMPREHENSIVE METABOLIC [id number] 08:12:00 Test Item Value Reference Range Interpretation [...] S NOT APPLICABLE FOR DIALYSIS PATIEN TS. Actuarial Intern ID - ADMINSpecimen slightly ictericCBC W/PLT COUNT & AUTO [id number] 08:02:00 Test Item Value Reference Range Interpretation [...] (BEAKER) (test code = 2801) URINALYSIS W/ [id number] 16:50:00 Test Item Value Reference Range Interpretation [...] = 1521) SOURCE(BEAKER) (test code = 2795) Actuarial Intern ID - [auto]Actuarial Intern ID - techSODIUM, RANDOM [id number] 16:49:00 Test Item Value Reference Range Interpretation Comments SODIUM URINE (BEAKER) (test code = 27 meq/L 243) Reference Range: No NormalsOperator ID - ADMINALBUMIN PERITONEAL [id number] 15:03:00 Test Item Value Reference Range Interpretation Comments ALBUMIN, PERITONEAL FLUID (BEAKER) 0.8 (test code = 6467747) TACROLIMUS [id number] 11:19:00 Test Item Value Reference Range Interpretation Comments TACROLIMUS BLOOD 2.2 ng/mL 10.0-20.0 L Test perfor med on Colon (BEAKER) (test code Architec t Immunoassay = 657) system with Chemiluminescen t Microparticle I mmunoassay (CMIA) technolo Actuarial Intern ID - SAMY MCOMPREHENSIVE METABOLIC [id number] 06:56:00 Test Item Value Reference Range Interpretation [...] S NOT APPLICABLE FOR DIALYSIS PATIEN TS. Actuarial Intern ID - JUNO WSpecimen slightly ictericCBC W/PLT COUNT & AUTO [id number] 05:38:00 Test Item Value Reference Range Interpretation [...] PERCENT (BEAKER) (test code = 2801) SARS-COV2/RT-PCR ([facility])2020-07-04 17:49:00 Test Item Value Reference Range Interpretation Comments SARS-COV2/RT-PCR (test Negative Not Detected, Negative, code = 4384628) See external report for linked test SARS-COV-2 PERFORMING LAB [facility] (test code = 8195627) Negative result for this test determines that [...] of the Act.Fact Sheet for Healthcare Prov iders:https://www.Magine/sites/default/files/product/documents/Fact_Sheet_HC _Rtdstfyjw_Pyks_ZJVX-ZrF-5.pdfFact Sheet for Healthcare Patients:https://www.Magine/sites/default/files/product/docume nts/Wmrg_Cbmvh_Uzvqdbsr_Pmex_OPLK-OtF-0.pdfPerforming Laboratory:[facility] [place] [address] [id number] 13:40:00 Test Item Value Reference Range Interpretation Comments PHOSPHORUS (BEAKER) (test code = 4.1 mg/dL 2.3-4.7 604) Actuarial Intern ID - CASEY MRAD, CHEST, 1 VIEW, NON [id number] 12:56:00Referring: Dr. Diane Eastman/ [place] for exam:->lung transplantShould this be performed at the bedside?->Yes [facility] 1955 Sex: MFINAL [...] MDReport Verified Date/Time: 07/04/2020 12:56:55 Reading Location: [facility] Radiology Reading Room SARS-COV2/RT-PCR ([facility])2020-07-04 09:52:00 Test Item Value Reference Range Interpretation Comments SARS-COV2/RT-PCR (test Negative Not Detected, Negative, code = 0084101) See external report for linked test SARS-COV-2 PERFORMING LAB [facility] (test code = 8581803) Negative result for this test determines that [...] of the Act.Fact Sheet for Healthcare Prov iders:https://www.Magine/sites/default/files/product/documents/Fact_Sheet_HC _Qmgxgqwgb_Baaz_DOXD-TwB-2.pdfFact Sheet for Healthcare Patients:https://www.Magine/sites/default/files/product/docume nts/Fvfd_Ouyxm_Axskhevy_Uipe_IUFM-CzT-0.pdfPerforming Laboratory:[facility] [facility].[place], [place] [address]JFZMVHFUCMHVL METABOLIC [id number] 07:04:00 Test Item Value Reference Range Interpretation [...] S NOT APPLICABLE FOR DIALYSIS PATIEN TS. Actuarial Intern ID - PIAYA LSpecimen slightly ictericCBC W/PLT COUNT & AUTO [id number] 06:15:00 Test Item Value Reference Range Interpretation [...] PERCENT (BEAKER) (test code = 2801) U/S, [id number] 19:33:00Referring: Dr. Diane Eastman/ JOSE DAVIDabs to be ordered:->No Labs NeededLabs to be ordered:->AFBCulture with StainLabs to be ordered:->Body Fluid Culture (w/Gram Stain, C\\T\\S)Labs to be ordered:- >CytologyLabs to be ordered:->Glucose+LDH+ProteinReason for exam:- >HYPOTENSIONReason for exam:->ALTERED MENTAL STATUS [facility] 1955 Sex: MFINAL REPORT PROCEDURE: Ultrasound-guided paracentesis. INDICATION: Ascites. DESCRIPTION: After obtaining informed written consent, ultrasound scan of the abdomen identified ascites in the right lower quadrant. The overlying skin was prepped and draped in the usual, sterile fashion and local 2% lidocaine anesthesia was administered. A 5 Qatari catheter was advanced into the perito javed cavity and 2000 mL of clear yellow fluid was removed. The catheter was removed without immediate complication. Samples were sent for analysis. IMPRESSION:Uncomplicated ultrasound-guided paracentesis with 2000 mL of fluid removed. Signed: Mina Mcmahan MDReport Verified Date/Time: 07/03/2020 19:33:14 Reading Location: [address] Body Reading Room AMYLASE PERITONEAL [id number] 18:31:00 Test Item Value Reference Range Interpretation Comments AMYLASE, PERITONEAL FLUID (test code = 22 U/L See Comment 8120820) Amylase activity in peritoneal fluids of non-pancreatic origin is often less than or equal to the amylase activity in blood, whereas elevated amylase activity has been reported in fluid of pancreatic origin (five-folds or higher compared to contemporaneously collected blood specimen).This test has been modified from the mobile device engineer's instructions and its performance characteristics were determined by [facility]. The laboratory is regulated under CLIA as qualified to perform high-complexity testing. This test has not been cleared or approved by the U.S. Food and Drug Administration. The reference intervals and other method performance specifications are unavailable for amylase in peritoneal fluid. Comparison of this result with the blood amylase is recommended.Actuarial Intern ID - DBBODY FLUID CELL COUNT WITH [id number] 16:01:00 Test Item Value Reference Range Interpretation [...] (test code = 2873) CT, BRAIN, WITHOUT [id number] 12:39:00Referring: Dr. Diane Eastman/ [place] for exam:->ALTERED MENTAL STATUSWhat is the patient's sedation requirement?->No Sedation [facility] : 1955 Sex: MFINAL REPORT CT, BRAIN, WITHOUT CONTRAST INDICATION: Altered mental statusALTERED MENTAL STATUS TECHNIQUE: Noncontrast axial imaging was obtained from the vertex to the skull base.Axial images were reconstructed using a bone algorithm. DOSE REDUCTION: Dose modulation, iterative reconstruction, and/or weight-based adjustment of the mA/kV was utilized to reduce the radiation dose t o as low as reasonably achievable. COMPARISON: None. FINDINGS: Intracranial: No intracranial hemorrhage or abnormal extra-axial collection. No evidence of acute territorial infarct. No mass effect. No hydrocephalus. Mild generalized cerebral volume loss. Scattered foci of hypoattenuation within the per iventricular and subcortical white matter are a nonspecific [...] is recommended for further characterization. Signed: Lorraine Thompsoneport Verified Date/Time: 07/03/2020 12:39:26 COMPREHENSIVE METABOLIC PANEL [...] S NOT APPLICABLE FOR DIALYSIS PATIEN TS. Actuarial Intern ID - GENARO CSpecimen slightly ictericCBC W/PLT COUNT & AUTO [id number] 12:19:00 Test Item Value Reference Range Interpretation [...] 0-1 PERCENT (BEAKER) (test code = 2801) [id number] 12:09:00 Test Item Value Reference Range Interpretation Comments PARTIAL THROMBOPLASTIN TIME 32.6 seconds 22.5-36.0 (BEAKER) (test code = 760) POCT-GLUCOSE [id number] 12:08:00 Test Item Value Reference Range Interpretation Comments POC-GLUCOSE METER 108 mg/dL 70-110 : TESTED A T [facility] [address] (BEAKER) (test code = [place], 1538) [address]: Actuarial Intern/Techni demetrice ID = [id number] for CL FRED FREIRE PROTHROMBIN [id number] 12:08:00 Test Item Value Reference Range Interpretation [...] for patients wiht mechanical heart valves.LACTIC ACID, [id number] 12:06:00 Test Item Value Reference Range Interpretation Comments LACTATE BLOOD VENOUS 1.69 mmol/L 0.50-2.20 Specime n slightly (2) (BEAKER) (test hemolyzed code = 2872) Actuarial Intern ID - GENARO CSpecimen slightly [id number] 11:59:00 Test Item Value Reference Range Interpretation Comments AMMONIA (BEAKER) (test code = 348) 61 mol/L 18-72 Actuarial Intern ID - GENARO [id number] 14:05:00 Test Item Value Reference Range Interpretation Comments POC-CREATININE 2.0 mg/dL 0.6-1.3 H : TESTED AT [facility] ([place]) (test [address] code = 1859) [place], [address]: Actuarial Intern/Techni demetrice ID = [id number] for Yolanda Noriega POC-EGFR (BEAKER) 34 mL/min/1.73M2 (test code = 1860) CMV PCR, [id number] 11:44:00 Test Item Value Reference Range Interpretation Comments CMV VIRAL LOAD - Testing don e at [facility] POSITIVE (BEAKER) (test Diag nostics code = 1557) CMV VIRAL LOAD - Testing don e at [facility] NEGATIVE (BEAKER) (test Diag nostics code = 2558) BLOOD [id number] 23:00:00 Test Item Value Reference Range Interpretation Comments CULTURE (BEAKER) (test No growth in 5 days code = 1095) BLOOD [id number] 19:01:00 Test Item Value Reference Range Interpretation Comments CULTURE (BEAKER) (test No growth in 5 days code = 1095) TACROLIMUS [id number] 08:47:00 Test Item Value Reference Range Interpretation Comments TACROLIMUS BLOOD 3.6 ng/mL 10.0-20.0 L Test perfor med on Colon (BEAKER) (test code Architec t Immunoassay = 657) system with Chemiluminescen t Microparticle I mmunoassay (CMIA) technolo gy. Actuarial Intern ID - AAHAMIDBASIC METABOLIC [id number] 06:07:00 Test Item Value Reference Range Interpretation [...] S NOT APPLICABLE FOR DIALYSIS PATIEN TS. Actuarial Intern ID - CASEY [id number] 06:07:00 Test Item Value Reference Range Interpretation Comments MAGNESIUM (BEAKER) (test code = 1.8 mg/dL 1.6-2.6 627) Actuarial Intern ID - CASEY MCBC W/PLT COUNT & AUTO [id number] 04:57:00 Test Item Value Reference Range Interpretation [...] = 2801) CBC W/PLT COUNT & AUTO [id number] 06:45:00 Test Item Value Reference Range Interpretation [...] (BEAKER) (test code = 2801) BASIC METABOLIC [id number] 04:53:00 Test Item Value Reference Range Interpretation [...] S NOT APPLICABLE FOR DIALYSIS PATIEN TS. Actuarial Intern ID - CASEY MCBC W/PLT COUNT & AUTO [id number] 04:31:00 Test Item Value Reference Range Interpretation [...] 0-1 PERCENT (BEAKER) (test code = 2801) [id number] 04:29:00 Test Item Value Reference Range Interpretation Comments MAGNESIUM (BEAKER) (test code = 1.7 mg/dL 1.6-2.6 627) Actuarial Intern ID - CASEY [id number] 17:55:00 Test Item Value Reference Range Interpretation Comments FERRITIN (BEAKER) (test code = 338.04 ng/mL 5.00-275.00 H 361) Actuarial Intern ID - BSIRON, TIBC, % SAT. (WITHOUT FERRITIN)2020-06-21 17:42:00 Test Item Value Reference Range Interpretation Comments IRON (BEAKER) (test code = 547) 79.0 ug/dL 40.0-160.0 TOTAL IRON BINDING CAPACITY 74 ug/dL 250-450 L (BEAKER) (test code = 769) IRON % SATURATION (2) (BEAKER) 107 % 20-55 H (test code = 2590) Actuarial Intern ID - [id number] 11:24:00 Test Item Value Reference Range Interpretation Comments PHOSPHORUS (BEAKER) (test code = 2.0 mg/dL 2.3-4.7 L 604) Actuarial Intern ID - JAHAIRAARS-COV2/RT-PCR ([facility])2020-06-21 09:14:00 Test Item Value Reference Range Interpretation Comments SARS-COV2/RT-PCR (test Negative Not Detected, Negative, code = 4605968) See external report for linked test SARS-COV-2 PERFORMING LAB [facility] (test code = 5630368) Negative result for this test determines that [...] of the Act.Fact Sheet for Healthcare Prov iders:https://www.Magine/sites/default/files/product/documents/Fact_Sheet_HC _Qiohcengb_Akow_RMNA-TbI-7.pdfFact Sheet for Healthcare Patients:https://www.Magine/sites/default/files/product/docume nts/Xdpr_Nivhq_Mpuvovxd_Cigg_QWUT-JwC-1.pdfPerforming Laboratory:[address] [place], [place] [address]CRKYC METABOLIC PANEL 2020-06-21 05:39:00 Test Item Value [...] S NOT APPLICABLE FOR DIALYSIS PATIEN TS. Actuarial Intern ID - PIAYA LSpecimen slightly [id number] 05:21:00 Test Item Value Reference Range Interpretation Comments MAGNESIUM (BEAKER) (test code = 1.6 mg/dL 1.6-2.6 627) Actuarial Intern ID - SERGIO LCBC W/PLT COUNT & AUTO [id number] 04:40:00 Test Item Value Reference Range Interpretation [...] (BEAKER) (test code = 2801) LACTIC ACID, [id number] 20:16:00 Test Item Value Reference Range Interpretation Comments LACTATE BLOOD VENOUS (2) (BEAKER) 2.38 mmol/L 0.50-2.20 H (test code = 2872) Actuarial Intern ID - BSCOMPREHENSIVE METABOLIC [id number] 19:14:00 Test Item Value Reference Range Interpretation [...] S NOT APPLICABLE FOR DIALYSIS PATIEN TS. Actuarial Intern ID - BSSpecimen slightly [id number] 18:54:00 Test Item Value Reference Range Interpretation Comments PARTIAL THROMBOPLASTIN TIME 37.1 seconds 22.5-36.0 H (BEAKER) (test code = 760) PROTHROMBIN [id number] 18:53:00 Test Item Value Reference Range Interpretation [...] for patients wiht mechanical heart valves.LACTIC ACID, [id number] 18:48:00 Test Item Value Reference Range Interpretation Comments LACTATE BLOOD VENOUS (2) (BEAKER) 2.89 mmol/L 0.50-2.20 H (test code = 2872) Actuarial Intern ID - BSCBC W/PLT COUNT & AUTO [id number] 18:38:00 Test Item Value Reference Range Interpretation [...] = 2801) BODY FLUID CELL COUNT WITH [id number] 17:52:00 Test Item Value Reference Range Interpretation [...] Container (BEAKER) (test code = 2873) U/S, [id number] 16:42:00Referring: Dr. Diane Eastman/ Semaj ascitic fluid for cell count and differential If Cr > 1.5, do not remove more than 3.5L of ascitic fluid. If > 3L removed, please administer 200 mL of albumin 25% (50 grams) IV x 1Labs to be ordered:->Cell CountLabs to be ordered:->Other (please add comment)Reason for Exam:->ascites [facility] : 1955 Sex: MFINAL REPORT Ultrasound guided paracentesis, 06/17/2020. Clinical History: Ascites. Sedation: None. Fiberglass Autobody Repairer: Lola. Product Safety Administrator: None. Estimated Blood Loss: < 1 cc. Specimen: 3100 cc of clear yellow fluid, samples sent to laboratory. Technique: Informed consent was obtained. The risks of pain, bleeding, infection, bowel perforation, injury to adjacent structures, and adverse medication reactions were discussed with the patient. After informed consent was obtained, thepatient's abdomen was scanned. The right lower quadrant of the abdomen was selected for paracentesis. After the largest fluid pocket area was marked, and the anterior abdominal wall was evaluated with color Doppler to exclude presence of blood vessels traversing the area, the skin was prepped and draped in the usual sterile manner. After local anesthesia was achieved with 1% lidocaine, a 5 Qatari one-step catheter was advanced into the peritoneal cavity under ultrasound guidance. After completion ofdrainage, the catheter was removed. There was no evidence of complication. Patient Disposition: The patient was discharged from the ultrasound department after the paracentesis, in good condition. Impression:Successful ultrasound guided paracentesis. Signed: Rohit Rutheport Verified Date/Time:06/17/2020 16:42:07 Reading Location: [place] [id number] Angio Body Reading Room BASI METABOLIC PANEL 2020-06-17 12:29:00 Test Item Value [...] S NOT APPLICABLE FOR DIALYSIS PATIEN TS. Actuarial Intern ID - PIAYA LSpecimen slightly ictericHEPATIC FUNCTION [id number] 11:27:00 Test Item Value Reference Range Interpretation [...] (test code = 27 U/L 6-55 347) Actuarial Intern ID - SERGIO LSpecimen slightly ictericPROTHROMBIN [id number] 11:04:00 Test Item Value Reference Range Interpretation [...] mechanical heart valves.CBC W/PLT COUNT & AUTO [id number] 10:57:00 Test Item Value Reference Range Interpretation [...] PERCENT (BEAKER) (test code = 2801) U/S, [id number] 11:34:00Referring: Dr. Diane Eastman/ Semaj ascitic fluid for cell count and differential If Cr > 1.5, do not remove more than 4L of ascitic fluid. If > 3L removed, please administer 200 mL of albumin 25% (50 grams) IV x 1Labs to be ordered:->Other (please add comment)Labs to be ordered:->CellCountReason for Exam:->ascites [facility] : 1955 Sex: MFINAL REPORT Ultrasound guided paracentesis Clinical History: Ascites. Sedation: None. Fiberglass Autobody Repairer: Aure Huerta PA-C Supervising Physician: Sixto Martinez MD Product Safety Administrator: None. Estimated Blood Loss: < 1 mL. [...] anesthesia was achieved with lidocaine, a 5 Qatari one-step catheter was advanced into the peritoneal cavity under ultrasound guidance. After completion of drainage, the catheter was removed. There was no evidence of complication. Impression:Successful ultrasound guided paracentesis. Signed: Sixto Martinez MDReport Verified Date/Time: 06/13/2020 11:34:44 Reading Location: [address] Ultrasound Reading Room BODY FLUID CELL COUNT WITH [id number] 18:14:00 Test Item Value Reference Range Interpretation [...] Container (BEAKER) (test code = 2873) PROTHROMBIN [id number] 13:40:00 Test Item Value Reference Range Interpretation [...] is 2.5-3.5 for patients wiht mechanical heart valves.[id number] 13:40:00 Test Item Value Reference Range Interpretation Comments PARTIAL THROMBOPLASTIN TIME 36.6 seconds 22.5-36.0 H (BEAKER) (test code = 760) CBC W/PLT COUNT & AUTO [id number] 13:30:00 Test Item Value Reference Range Interpretation [...] (BEAKER) (test code = 2801) MISCELLANEOUS LAB [id number] 11:48:00 Test Item Value Reference Range Interpretation Comments SCAN RESULT (test code = 4648440) TACROLIMUS [id number] 12:17:00 Test Item Value Reference Range Interpretation Comments TACROLIMUS BLOOD (BEAKER) (test 7.5 ng/mL 10.0-20.0 L code = 657) Actuarial Intern ID - MARCELLE FPOCT-GLUCOSE [id number] 08:31:00 Test Item Value Reference Range Interpretation Comments POC-GLUCOSE METER 119 mg/dL 70-110 H : TESTED A T [facility] [address] (BEAKER) (test code = [address], 1538) [address]: Actuarial Intern/Techni demetrice ID = [id number] for Adams Ordaz BASIC METABOLIC [id number] 06:20:00 Test Item Value Reference Range Interpretation [...] S NOT APPLICABLE FOR DIALYSIS PATIEN TS. Actuarial Intern ID - [id number] 06:18:00 Test Item Value Reference Range Interpretation Comments MAGNESIUM (BEAKER) (test code = 1.8 mg/dL 1.6-2.6 627) Actuarial Intern ID - [id number] 06:18:00 Test Item Value Reference Range Interpretation Comments PHOSPHORUS (BEAKER) (test code = 4.2 mg/dL 2.3-4.7 604) Actuarial Intern ID - EDASIHEPATIC FUNCTION [id number] 06:18:00 Test Item Value Reference Range Interpretation [...] (test code = 15 U/L 6-55 347) Actuarial Intern ID - EDASICBC W/PLT COUNT & AUTO [id number] 06:07:00 Test Item Value Reference Range Interpretation [...] PERCENT (BEAKER) (test code = 2801) PROTHROMBIN [id number] 06:04:00 Test Item Value Reference Range Interpretation [...] Reference Range Interpretation Comments B-TYPE NATRIURETIC PEPTIDE (WizMetaAKER) 996 pg/mL 0-100 H (test code = 700) Actuarial Intern ID - DBPOCT-GLUCOSE [id number] 13:59:00 Test Item Value Reference Range Interpretation Comments POC-GLUCOSE METER 123 mg/dL 70-110 H : TESTED A T [facility] 6720 (Whisper) (test code = [facility], 153) [address]: Actuarial Intern/Techni demetrice ID = [id number] for LEE, JOSE LUIS BEL POCT-GLUCOSE [id number] 13:54:00 Test Item Value Reference Range Interpretation Comments POC-GLUCOSE METER 78 mg/dL 70-110 : TESTED A T [facility] 67[address] (Whisper) (test code = [facility], 153) [address]: Actuarial Intern/Techni demetrice ID = [id number] for HARDY EMAYOR, KASSY TACROLIMUS [id number] 10:49:00 Test Item Value Reference Range Interpretation Comments TACROLIMUS BLOOD (Whisper) (test 10.9 ng/mL 10.0-20.0 code = 657) Actuarial Intern ELIZABETH FRAIRE WCBC W/PLT COUNT & AUTO [id number] 06:48:00 Test Item Value Reference Range Interpretation [...] % 0-1 PERCENT (BEAKER) (test code = 2800) BASIC METABOLIC [id number] 06:35:00 Test Item Value Reference Range Interpretation [...] S NOT APPLICABLE FOR DIALYSIS PATIEN TS. Actuarial Intern ID - CASEY [id number] 06:25:00 Test Item Value Reference Range Interpretation Comments MAGNESIUM (BEAKER) 1.8 mg/dL 1.6-2.6 Specimen slightly (test code = 627) hemolyzed Actuarial Intern ID - CASEY [id number] 06:25:00 Test Item Value Reference Range Interpretation Comments PHOSPHORUS (BEAKER) 4.5 mg/dL 2.3-4.7 Specimen slightly (test code = 604) hemolyzed Actuarial Intern ID - CASEY MHEPATIC FUNCTION [id number] 06:25:00 Test Item Value Reference Range Interpretation [...] Specimen slightly (test code = 347) hemolyzed Actuarial Intern ID - CASEY MB-TYPE NATRIURETIC FACTOR (BNP)2020-04-30 06:20:00 Test Item Value Reference Range Interpretation Comments B-TYPE NATRIURETIC PEPTIDE (BEAKER) 890 pg/mL 0-100 H (test code = 700) Actuarial Intern ID - EDASIPROTHROMBIN [id number] 06:11:00 Test Item Value Reference Range Interpretation [...] 2.5-3.5 for patients wiht mechanical heart valves.BLOOD [id number] 21:00:00 Test Item Value Reference Range Interpretation Comments CULTURE (BEAKER) (test No growth in 5 days code = 1095) BLOOD [id number] 21:00:00 Test Item Value Reference Range Interpretation Comments CULTURE (BEAKER) (test No growth in 5 days code = 1095) POCT-GLUCOSE [id number] 12:11:00 Test Item Value Reference Range Interpretation Comments POC-GLUCOSE METER 84 mg/dL 70-110 : TESTED A T [facility] 6720 (BEAKER) (test code = [address] [place], [address]) [address]: Actuarial Intern/Techni demetrice ID = [id number] for Adams Villeda TACROLIMUS [id number] 08:57:00 Test Item Value Reference Range Interpretation Comments TACROLIMUS BLOOD (BEAKER) (test 7.8 ng/mL 10.0-20.0 L code = 657) Actuarial Intern ID - JUNO WPOCT-GLUCOSE [id number] 08:34:00 Test Item Value Reference Range Interpretation Comments POC-GLUCOSE METER 81 mg/dL 70-110 : TESTED A T [facility] 67[address] (BEAKER) (test code = [address] [place], [address]38) [address]: Actuarial Intern/Techni demetrice ID = [id number] for Yosi itVenkatesha BASIC METABOLIC [id number] 07:02:00 Test Item Value Reference Range Interpretation [...] S NOT APPLICABLE FOR DIALYSIS PATIEN TS. Actuarial Intern ID - EDASIB-TYPE NATRIURETIC FACTOR (BNP)2020-04-29 06:49:00 Test Item Value Reference Range Interpretation Comments B-TYPE NATRIURETIC PEPTIDE (BEAKER) 948 pg/mL 0-100 H (test code = 700) Actuarial Intern ID - [id number] 06:46:00 Test Item Value Reference Range Interpretation Comments MAGNESIUM (BEAKER) (test code = 1.8 mg/dL 1.6-2.6 627) Actuarial Intern ID - [id number] 06:46:00 Test Item Value Reference Range Interpretation Comments PHOSPHORUS (BEAKER) (test code = 4.1 mg/dL 2.3-4.7 604) Actuarial Intern ID - EDASIHEPATIC FUNCTION [id number] 06:46:00 Test Item Value Reference Range Interpretation [...] (test code = 11 U/L 6-55 347) Actuarial Intern ID - EDASIPROTHROMBIN TIME/[id number] 06:41:00 Test Item Value Reference Range Interpretation [...] mechanical heart valves.CBC W/PLT COUNT & AUTO [id number] 06:40:00 Test Item Value Reference Range Interpretation [...] PERCENT (BEAKER) (test code = 2801) POCT-GLUCOSE [id number] 21:59:00 Test Item Value Reference Range Interpretation Comments POC-GLUCOSE METER 90 mg/dL 70-110 : TESTED A T [facility] 6720 (BEAKER) (test code = PARESH Garcia [facility], 153) 8[address]: Actuarial Intern/Techni demetrice ID = [id number] for KALL ON, KAM POCT-GLUCOSE [id number] 17:53:00 Test Item Value Reference Range Interpretation Comments POC-GLUCOSE METER 87 mg/dL 70-110 : TESTED A T [facility] 6720 (BEAKER) (test code = [facility], 1538) 23179: Actuarial Intern/Techni demetrice ID = [id number] for Yosi it, Kyaira POCT-GLUCOSE [id number] 12:31:00 Test Item Value Reference Range Interpretation Comments POC-GLUCOSE METER 69 mg/dL 70-110 L : TESTED A T [facility] 6720 (BEAKER) (test code = [facility] Jose [facility], 1538) 25831: Actuarial Intern/Techni demetrice ID = [id number] for Yosi it, Kyaira U/S, PELVIS, WITH [id number] 12:18:00Referring: Dr. 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 6720 ([facility]) (test code = [facility], [facility]8) [address]: Actuarial Intern/Techni demetrice ID = [id number] for Adams Villeda POCT-GLUCOSE [id number] 22:13:00 Test Item Value Reference Range Interpretation Comments POC-GLUCOSE METER 79 mg/dL 70-110 : Notified RN/MD: TESTED ([facility]) (test code = AT [facility] 67[address] [place] [id number]) [facility], [facility] 30: Actuarial Intern/Techni demetrice ID = [id number] for KENNETH MORAES POCT-GLUCOSE [id number] 18:06:00 Test Item Value Reference Range Interpretation Comments POC-GLUCOSE METER 105 mg/dL 70-110 : TESTED A T [facility] 6720 ([facility]) (test code = [facility], 1538) 012[address]: Actuarial Intern/Techni demetrice ID = [id number] for KWASI RGMIKAELA, IRIS [id number] 17:07:00 Test Item Value Reference Range Interpretation Comments ACTIVATED CLOTTING TIME 147 sec : 74 -137 seconds, ([facility]) (test code = Amari ne: TESTED AT [facility]) [facility] 6720 [facility], [facility] 30: Actuarial Intern/Techni demetrice ID = [id number] for BA TTAD, SEMAJ POCT-GLUCOSE [id number] 17:05:00 Test Item Value Reference Range Interpretation Comments POC-GLUCOSE METER 127 mg/dL 70-110 H : [facility] (test code [facility], = 1538) 45[address]: Actuarial Intern/Techni demetrice ID = [id number] for SACHINR OD DUPLECHIAN (V), DYLLAN HEMOGLOBIN AND [id number] 17:00:00 Test Item Value Reference Range Interpretation Comments HEMOGLOBIN (BEAKER) (test code = 8.3 GM/DL 13.7-17.5 L 410) HEMATOCRIT (BEAKER) (test code = 24.8 % 40.1-51.0 L 411) Actuarial Intern ID - 6000POCT-GLUCOSE [id number] 15:34:00 Test Item Value Reference Range Interpretation Comments POC-GLUCOSE METER 132 mg/dL 70-110 H : TESTED A T [facility] 6720 ([facility]) (test code = [facility], 153) 76162: Actuarial Intern/Techni demetrice ID = [id number] for BA TTAD, SEMAJ POCT-GLUCOSE [id number] 15:23:00 Test Item Value Reference Range Interpretation Comments POC-GLUCOSE METER 63 mg/dL 70-110 L : TESTED A T [facility] 6720 ([facility]) (test code = [facility], 1538) 73088: Actuarial Intern/Techni demetrice ID = [id number] for RYAN MORENO MARCUS [id number] 14:00:00 Test Item Value Reference Range Interpretation Comments ACTIVATED CLOTTING TIME 252 sec : 74 -137 seconds, ([facility]) (test code = Baseli ne: TESTED AT 441) [facility] 6720 [facility], 770 30: Actuarial Intern/Techni demetrice ID = [id number] for AMANDEEP JEONGJAZMYN Ortiz Johnathan POCT-GLUCOSE [id number] 11:36:00 Test Item Value Reference Range Interpretation Comments POC-GLUCOSE METER 75 mg/dL 70-110 : [facility] T [facility] 6720 [facility] (test code = [facility], 153) 09423: Actuarial Intern/Techni demetrice ID = [id number] for LO GUERRERO POCT-GLUCOSE [id number] 10:10:00 Test Item Value Reference Range Interpretation Comments POC-GLUCOSE METER 79 mg/dL 70-110 : TESTED A T [facility] 6720 (BEAKER) (test code = PARESH Garcia [place], 1538) [address]: Actuarial Intern/Techni demetrice ID = [id number] for JAMILA CAPPS TACROLIMUS [id number] 09:38:00 Test Item Value Reference Range Interpretation Comments TACROLIMUS BLOOD (BEAKER) (test 12.2 ng/mL 10.0-20.0 code = 657) Actuarial Intern ID - SAMY MCKEEBASIC METABOLIC [id number] 06:45:00 Test Item Value Reference Range Interpretation [...] S NOT APPLICABLE FOR DIALYSIS PATIEN TS. Actuarial Intern ID - EDASISpecimen slightly [id number] 06:43:00 Test Item Value Reference Range Interpretation Comments MAGNESIUM (BEAKER) (test code = 1.8 mg/dL 1.6-2.6 627) Actuarial Intern ID - [id number] 06:43:00 Test Item Value Reference Range Interpretation Comments PHOSPHORUS (BEAKER) (test code = 4.2 mg/dL 2.3-4.7 604) Actuarial Intern ID - TORREYASIHEPATIC FUNCTION [id number] 06:43:00 Test Item Value Reference Range Interpretation [...] (test code = 11 U/L 6-55 347) Actuarial Intern ID - EDASISpecimen slightly ictericB-TYPE NATRIURETIC FACTOR (BNP) 2020-04-27 06:40:00 Test Item Value Reference Range Interpretation Comments B-TYPE NATRIURETIC PEPTIDE (BEAKER) 871 pg/mL 0-100 H (test code = 700) Actuarial Intern ID - ELIZABETHANTONIO LCBC W/PLT COUNT & AUTO [id number] 06:38:00 Test Item Value Reference Range Interpretation [...] PERCENT (BEAKER) (test code = 2801) PROTHROMBIN [id number] 06:26:00 Test Item Value Reference Range Interpretation [...] 2.5-3.5 for patients wiht mechanical heart valves.POCT-GLUCOSE [id number] 19:59:00 Test Item Value Reference Range Interpretation Comments POC-GLUCOSE METER 108 mg/dL 70-110 : TESTED A T [facility] 6720 (KATELYNN) (test code = PARESH [place], 1538) [address]: Actuarial Intern/Techni demetrice ID = [id number] for Lesa Pritchett U/S, ABDOMINAL, [id number] 17:14:00Referring: Dr. Diane Eastman/ Carolau[place] Liver lesions, and Hepatic Vasculature with Doppler. Determine amount of ascites - to determine need for ParacentesisReason for exam:- >Evaluate Liver lesions, and Hepatic Vasculature with DopplerHx of Liver cystReason for exam:->Determine amount of ascites - to determine need for ParacentesisShould this be performed at the bedside?->Yes [facility] : 1955 Sex: MFINAL [...] MDReport Verified Date/Time: 04/26/2020 17:14:41 U/S, DUPLEX, [id number] 17:14:00Referring: Dr. Diane Eastman/ [place] for exam:->Eval liver lesions and hepatic vasculature wDopplers- Determine amt of ascites to determine for paracentesisShould [facility]?->[facility] : 1955 Sex: [...] MDReport Verified Date/Time: 04/26/2020 17:14:41 POCT- GLUCOSE [id number] 12:29:00 Test Item Value Reference Range Interpretation Comments POC-GLUCOSE METER 100 mg/dL 70-110 : TESTED A T [facility] 6720 (BEAKER) (test code = JACQUELINEYULISA [place], 1538) [address]: Actuarial Intern/Techni demetrice ID = [id number] for Adams Ordaz [id number] 10:27:00 Test Item Value Reference Range Interpretation Comments HAPTOGLOBIN (BEAKER) (test code = 15 mg/dL 14-258 366) Actuarial Intern ID - ROSIANGCBC W/PLT COUNT & AUTO [id number] 10:04:00 Test Item Value Reference Range Interpretation [...] (test code = 413) VITAMIN B12 AND [id number] 10:02:00 Test Item Value Reference Range Interpretation Comments VITAMIN B12 (BEAKER) (test code = 1346 pg/mL 213-816 H 774) FOLATE (BEAKER) (test code = 362) 9.20 ng/mL >=7.00 Actuarial Intern ID - RM(CELLAVISION MANUAL DIFF)2020-04-26 10:00:00 Test [...] CONCENTRATION Decreased (CELLAVISION)(BEAKER) (test code = 3438) Actuarial Intern ID - [id number] ID - Sadia SouthteoLata comments: Slide comments: RETICULOCYTE [id number] 08:41:00 Test Item Value Reference Range Interpretation Comments RETICULOCYTE COUNT PCT (BEAKER) (test 3.2 % 0.5-1.8 H code = 575) Actuarial Intern ID - 6000CBC W/PLT COUNT & AUTO [id number] 08:35:00 Test Item Value Reference Range Interpretation [...] (BEAKER) (test code = hemoly zed 635) Actuarial Intern ID - ROSIANGTACROLIMUS [id number] 08:33:00 Test Item Value Reference Range Interpretation Comments TACROLIMUS BLOOD (BEAKER) (test 5.6 ng/mL 10.0-20.0 L code = 657) Actuarial Intern ID - JUNO WPOCT-GLUCOSE [id number] 07:58:00 Test Item Value Reference Range Interpretation Comments POC-GLUCOSE METER 87 mg/dL 70-110 : TESTED A T [facility] 6720 (BEAKER) (test code = PARESH [place], 1538) 69761: Actuarial Intern/Techni demetrice ID = [id number] for Adams Villeda [id number] 06:19:00 Test Item Value Reference Range Interpretation Comments MAGNESIUM (BEAKER) 2.0 mg/dL 1.6-2.6 Specimen slightly (test code = 627) hemolyzed Actuarial Intern ID - [id number] 06:19:00 Test Item Value Reference Range Interpretation Comments PHOSPHORUS (BEAKER) 5.4 mg/dL 2.3-4.7 H Specimen slightly (test code = 604) hemolyzed Actuarial Intern ID - edasiHEPATIC FUNCTION [id number] 06:19:00 Test Item Value Reference Range Interpretation [...] Specimen slightly (test code = 347) hemolyzed Actuarial Intern ID - edasiBASIC METABOLIC [id number] 06:19:00 Test Item Value Reference Range Interpretation [...] S NOT APPLICABLE FOR DIALYSIS PATIEN TS. Actuarial Intern ID - edasiB-TYPE NATRIURETIC FACTOR (BNP)2020-04-26 06:14:00 Test Item Value Reference Range Interpretation Comments B-TYPE NATRIURETIC PEPTIDE (BEAKER) 616 pg/mL 0-100 H (test code = 700) Actuarial Intern ID - edasiPROTHROMBIN TIME/[id number] 05:58:00 Test Item Value Reference Range Interpretation [...] 2.5-3.5 for patients wiht mechanical heart valves.POCT-GLUCOSE [id number] 22:18:00 Test Item Value Reference Range Interpretation Comments POC-GLUCOSE METER 90 mg/dL 70-110 : TESTED A T [facility] 6720 (BEAKER) (test code = PARESH [place], 1538) [address]: Actuarial Intern/Techni demetrice ID = [id number] for Lesa Kay BLOOD GAS, [id number] 21:59:00 Test Item Value Reference Range Interpretation [...] FIO2 (BEAKER) (test code = 1819) 21.0 [id number] 21:00:00 Test Item Value Reference Range Interpretation Comments FERRITIN (BEAKER) (test code = 150.49 ng/mL 5.00-275.00 361) Actuarial Intern ID - BSVITAMIN D, 01-[id number] 20:47:00 Test Item Value Reference Range Interpretation [...] 47 % 20-55 (test code = 2590) Actuarial Intern ID - DBPOCT-GLUCOSE [id number] 15:26:00 Test Item Value Reference Range Interpretation Comments POC-GLUCOSE METER 84 mg/dL 70-110 : TESTED A T [facility] 6720 (BEAKER) (test code = [facility], 1538) 59844: Actuarial Intern/Techni demetrice ID = [id number] for ARNAUD KINSEY POCT-GLUCOSE [id number] 11:35:00 Test Item Value Reference Range Interpretation Comments POC-GLUCOSE METER 89 mg/dL 70-110 : TESTED A T [facility] 6720 (BEAKER) (test code = [facility], 1538) 00344: Actuarial Intern/Techni demetrice ID = [id number] for COY PIZARROO, AGLAE TACROLIMUS [id number] 10:55:00 Test Item Value Reference Range Interpretation Comments TACROLIMUS BLOOD (BEAKER) (test 9.5 ng/mL 10.0-20.0 L code = 657) Actuarial Intern ID - MARCELLE FTACROLIMUS [id number] 10:55:00 Test Item Value Reference Range Interpretation Comments TACROLIMUS BLOOD (BEAKER) (test 11.4 ng/mL 10.0-20.0 code = 657) Actuarial Intern ID - MARCELLE FPOCT-GLUCOSE [id number] 07:51:00 Test Item Value Reference Range Interpretation Comments POC-GLUCOSE METER 110 mg/dL 70-110 : TESTED A T [facility] 6720 (BEAKER) (test code = [facility], 1538) 23907: Actuarial Intern/Techni demetrice ID = [id number] for HERACLIO DALGO, AGLAE [id number] 06:18:00 Test Item Value Reference Range Interpretation Comments FIBRINOGEN LEVEL (BEAKER) (test 282 mg/dl 225-434 code = 658) IMMUNOGLOBULIN A (IGA)2020-04-25 06:10:00 Test Item Value Reference Range Interpretation Comments IMMUNOGLOBULIN A (IGA) (BEAKER) (test < mg/dL 63-484 L code = 639) Actuarial Intern ID - SERGIO HILL LIMMUNOGLOBULIN G (IGG)2020-04-25 06:10:00 Test Item Value Reference Range Interpretation Comments IMMUNOGLOBULIN G (IGG) (BEAKER) (test < mg/dL 540-1,822 L code = 427) Actuarial Intern ELIZABETH HILL LIMMUNOGLOBULIN M (IGM)2020-04-25 06:10:00 Test Item Value Reference Range Interpretation Comments IMMUNOGLOBULIN M (IGM) (BEAKER) (test < mg/dL 22-293 L code = 638) Actuarial Intern ELIZABETH - SERGIO JOHNSON - SERGIO LLACTIC ACID, [id number] 06:09:00 Test Item Value Reference Range Interpretation Comments LACTATE BLOOD VENOUS (2) (BEAKER) 1.08 mmol/L 0.50-2.20 (test code = 2872) Actuarial Intern ELIZABETH HOWARDpecimen slightly ictericB-TYPE NATRIURETIC FACTOR (BNP) 2020-04-25 04:54:00 Test Item Value Reference Range Interpretation Comments B-TYPE NATRIURETIC PEPTIDE (BEAKER) 699 pg/mL 0-100 H (test code = 700) Actuarial Intern ELIZABETH HILL LBASIC METABOLIC [id number] 04:49:00 Test Item Value Reference Range Interpretation [...] S NOT APPLICABLE FOR DIALYSIS PATIEN TS. Actuarial Intern ID - SERGIO LSpecimen slightly [id number] 04:45:00 Test Item Value Reference Range Interpretation Comments MAGNESIUM (BEAKER) (test code = 2.2 mg/dL 1.6-2.6 627) Actuarial Intern ID - SERGIO [id number] 04:45:00 Test Item Value Reference Range Interpretation Comments PHOSPHORUS (BEAKER) (test code = 5.4 mg/dL 2.3-4.7 H 604) Actuarial Intern ID - SERGIO LHEPATIC FUNCTION [id number] 04:45:00 Test Item Value Reference Range Interpretation [...] (test code = 15 U/L 6-55 347) Actuarial Intern ID - SERGIO HOWARDpecimen slightly [id number] 04:45:00 Test Item Value Reference Range Interpretation Comments LIPASE (BEAKER) (test code = 749) 222 U/L 8-78 H Actuarial Intern ID - SERGIO HOWARDpecimen slightly ictericPROTHROMBIN TIME/[id number] 04:35:00 Test Item Value Reference Range Interpretation [...] mechanical heart valves.CBC W/PLT COUNT & AUTO [id number] 04:29:00 Test Item Value Reference Range Interpretation [...] PERCENT (BEAKER) (test code = 2801) SARS-COV2/RT-PCR ([facility])2020-04-25 04:12:00 Test Item Value Reference Range Interpretation Comments SARS-COV2/RT-PCR (test code Negative Not Detected, Negative, = 2537994) See external report for linked test SARS-COV-2 PERFORMING LAB [facility] (test code = 4330123) Negative results do not preclude SARS-CoV-2 infection [...] of the Act.Fact Sheet for Healthcare Pro viders:https://www.[employer].GenJuice/Documents/Xpert%20Xpress%20SARS%20CoV-2/Fact%20Sh eets/302-5172%80HOTO-YVP-4%20HEALTHCARE%20PROVIDERS%20FACT%20SHEET.pdfFact Sheet for Healthcare Patients:https://www.[employer].GenJuice/Documents/Xpert%20Xpress%20SARS%20CoV-2/Fact%20Sheets/302-3801%20SARS-COV -2%20PATIENT%20FACT%20SHEET.pdfPerforming Laboratory:[facility], [place] [address]FJX, ABDOMEN/KUB, 1 VIEW [id number] 01:28:00Referring: Dr. Diane Eastman/ [place] for exam:->abdominal pain [facility] : 1955 Sex: MFINAL [...] MDReport Verified Date/Time: 04/25/2020 01:28:39 U/S, RENAL, [id number] 01:26:00 Referring: Dr. Diane Eastman/ Alexandra include bladder as wellReason for exam:->NOHEMI on CKD [facility] : 1955 Sex: MFINAL [...] Romero MDReport Verified Date/Time: 04/25/2020 01:26:38 POCT-GLUCOSE [id number] 00:44:00 Test Item Value Reference Range Interpretation Comments POC-GLUCOSE METER 177 mg/dL 70-110 H : [facility] (test code = [facility], 1538) 74851: Actuarial Intern/Techni demetrice ID = [id number] for CE BALLOS, TAN POCT-GLUCOSE [id number] 23:52:00 Test Item Value Reference Range Interpretation Comments POC-GLUCOSE METER 99 mg/dL 70-110 : TESTED A T [facility] 6720 (Whisper) (test code = [facility], 1538) 69194: Actuarial Intern/Techni demetrice ID = [id number] for CEBA LLOS, TAN PROTEIN, RANDOM [id number] 22:02:00 Test Item Value Reference Range Interpretation Comments PROTEIN, URINE (BEAKER) (test code = < mg/dL 0-14 1569) Actuarial Intern ID - DBUREA NITROGEN, RANDOM [id number] 22:01:00 Test Item Value Reference Range Interpretation Comments UREA NITROGEN URINE (BEAKER) (test 367 mg/dL code = 538) Reference Range: No NormalsOperator ID - DBCHLORIDE, RANDOM [id number] 22:01:00 Test Item Value Reference Range Interpretation Comments CHLORIDE URINE (BEAKER) (test code = 67 meq/L 682) Reference Range: No NormalsOperator ID - DBCREATININE, RANDOM [id number] 22:01:00 Test Item Value Reference Range Interpretation Comments CREATININE URINE (BEAKER) (test 85.6 mg/dL code = 375) Reference Range: No NormalsOperator ID - DBPOTASSIUM, RANDOM [id number] 22:01:00 Test Item Value Reference Range Interpretation Comments POTASSIUM URINE (BEAKER) (test 21.7 meq/L code = 195) Reference Range: No NormalsOperator ID - DBSODIUM, RANDOM [id number] 22:01:00 Test Item Value Reference Range Interpretation [...] /LPF 514) SOURCE(BEAKER) (test code = 2795) Actuarial Intern ID - [auto]Actuarial Intern ID - techLACTIC ACID, [id number] 21:32:00 Test Item Value Reference Range Interpretation Comments LACTATE BLOOD VENOUS (2) (BEAKER) 1.05 mmol/L 0.50-2.20 (test code = 2872) Actuarial Intern ID - DBSpecimen slightly ictericT4, [id number] 20:07:00 Test Item Value Reference Range Interpretation Comments FREE T4 (BEAKER) (test code = 655) 0.55 ng/dL 0.70-1.48 L Actuarial Intern ID - [id number] 20:02:00 Test Item Value Reference Range Interpretation Comments PROCALCITONIN (BEAKER) (test code 5.20 ng/mL <0.05 H = 3036) SEPSIS RISK (ng/mL)Low: 0.05-0.50Intermediate: 0.51-2.00High: >=2.01TROPONIN [id number] 19:34:00 Test Item Value Reference Range Interpretation [...] failure, acidosis, acute neurological disease, and persistent tachyarrhythmia.Actuarial Intern ID - DBTSH/FREE T4 IF INDICATED 2020-04-24 19:33:00 Test Item Value Reference Range Interpretation Comments THYROID STIMULATING HORMONE 5.602 uIU/mL 0.350-4.940 H (BEAKER) (test code = 772) Actuarial Intern ID - DBRAD, CHEST, 2 [id number] 19:10:00Referring: Dr. Diane Eastman/ [place] for exam:->[facility] : 1955 Sex: MFINAL [...] pg/mL 0-100 H (test code = 700) Actuarial Intern ID - DBCOMPREHENSIVE METABOLIC [id number] 18:53:00 Test Item Value Reference Range Interpretation [...] S NOT APPLICABLE FOR DIALYSIS PATIEN TS. Actuarial Intern ID - DBSpecimen slightly [id number] 18:49:00 Test Item Value Reference Range Interpretation Comments PARTIAL THROMBOPLASTIN TIME 40.9 seconds 22.5-36.0 H (BEAKER) (test code = 760) PROTHROMBIN [id number] 18:48:00 Test Item Value Reference Range Interpretation [...] for patients wiht mechanical heart valves.LACTIC ACID, [id number] 18:47:00 Test Item Value Reference Range Interpretation Comments LACTATE BLOOD VENOUS (2) (BEAKER) 1.10 mmol/L 0.50-2.20 (test code = 2872) Actuarial Intern ID - DBSpecimen slightly ictericBLOOD GAS, [id number] 18:42:00 Test Item Value Reference Range Interpretation [...] 1819) 21.0 CBC W/PLT COUNT & AUTO [id number] 18:39:00 Test Item Value Reference Range Interpretation [...] code = 2801) MYOCARD IMAGING, MULTI, PHARM, [id number] 15:55:00Referring: Dr. Diane Eastman/ Josee Reason for Exam - Click Yes and Enter Reason Below->Ye sUnlisted Reason for Exam->liver transplant evaluation [facility] : 1955 Sex: MFINAL REPORT PROCEDURE: Rest/Stress MYOCARDIAL PERFUSION SPECT with regadenoson\\XA9\\ CPT CODE: 21335 INDICATION: Preoperative evaluation for liver transplant PROTOCOL: [...] MDReport Verified Date/Time: 04/19/2020 15:55:39 Reading Location: [address] Reading Room MISCELLANEOUS LAB [id number] 12:14:00 Test Item Value Reference Range Interpretation Comments SCAN RESULT (test code = 4282564) T SPOT [id number] 13:21:00 Test Item Value Reference Range Interpretation Comments T-SPOT TB (BEAKER) (test code = Negative 3594) NEG CONTROL SPOT COUNT (BEAKER) 0 (test code = 1684) PANEL A SPOT (BEAKER) (test code = 1 1660) PANEL B SPOT (BEAKER) (test code = 1 1686) POS CONTROL SPOT CT (BEAKER) (test 0 code = 1687) SCAN RESULT (test code = 4752554) [id number] 12:43:00 Test Item Value Reference Range Interpretation Comments T3 TOTAL (BEAKER) (test code = 656) 36 ng/dL 48-159 L VARICELLA ZOSTER ANTIBODY, [id number] 09:11:00 Test Item Value Reference Range Interpretation Comments VARICELLA ZOSTER IGG (AL) (BEAKER) 0.9 (test code = 3197) VARICELLA ZOSTER RESULT INTERPRETATIONS: <=0.8 Al Nonreactive: Presumed non- immune to VZV 0.9-1.0Al Equivocal >=1.1 Al Reactive: Presumed immune to VZV CYTOMEGALOVIRUS ANTIBODY, [id number] 08:17:00 Test Item Value Reference Range Interpretation Comments CYTOMEGALOVIRUS IGM ANTIBODY Negative Negative, Equivocal (BEAKER) (test code = 3437) CMV IgM Result Interpretation: </= 0.8 Al Negative 0.9-1.0 Al Equivocal >/= 1.1 Al PositiveEBV ANTIBODY, [id number] 08:17:00 Test Item Value Reference Range Interpretation [...] Positive - Presumed immuneRAD, MANDIBLE, MIN 4 [id number] 13:44:00Referring: Dr. Diane Eastman/ [place] for Exam:->liver [...] Verified Date/Time: 04/06/2020 13:44:20 , CHEST, 2 [id number] 13:27:00Referring: Dr. Diane Eastman/ [place] for Exam:->liver transplant evaluationFINAL REPORT CHEST PA AND LATERAL COMPARISON STUDY: 02/23/2020 History provided:Liver transplantation evaluation Heart size normal. Prior sternotomy. Chronic blunting of the right costophrenic angle probably due to pleural thickening. Lungs clear and vascularity normal. Signed: Moreno Wilkes Verified Date/Time: 04/06/2020 13:27:52 Reading Location: [facility] Radiology ReadingRoom RAD, BONE DENSITY STUDY [...] Paez MDReport Verified Date/Time: 04/06/2020 12:40:47 CRYPTOCOCCAL [id number] 11:19:00 Test Item Value Reference Range Interpretation Comments CRYPTOCOCCAL ANTIGEN, SERUM Negative Negative, Interference (BEAKER) (test code = 1828) [id number] 11:16:00 Test Item Value Reference Range Interpretation Comments RPR SCREEN (BEAKER) (test code = Nonreactive Nonreactive 420) [id number] 10:35:00 Test Item Value Reference Range Interpretation Comments T4 TOTAL (BEAKER) (test code = 895) 3.8 ug/dL 4.9-11.7 L Actuarial Intern ID - GENARO CHEPATITIS A ANTIBODY, [id number] 09:39:00 Test Item Value Reference Range Interpretation Comments HEPATITIS A IGG ANTIBODY (BEAKER) Reactive Nonreactive A (test code = 2797) Actuarial Intern ID - GENARO [id number] 09:39:00 Test Item Value Reference Range Interpretation Comments PROSTATE SPECIFIC ANTIGEN (BEAKER) 0.0 ng/mL 0.0-4.0 (test code = 844) Actuarial Intern ID - GENARO [id number] 09:39:00 Test Item Value Reference Range Interpretation Comments THYROID STIMULATING HORMONE 4.994 uIU/mL 0.350-4.940 H (BEAKER) (test code = 772) Actuarial Intern ID - GENARO CCARCINOEMBRYONIC ANTIGEN (CEA)2020-04-06 09:26:00 Test Item Value Reference Range Interpretation Comments CARCINOEMBRYONIC ANTIGEN (BEAKER) 3.6 ng/mL 0.0-5.0 (test code = 685) Actuarial Intern ID - GENARO CHEPATITIS B CORE ANTIBODY, [id number] 09:26:00 Test Item Value Reference Range Interpretation Comments HEPATITIS B CORE IGM ANTIBODY Nonreactive Nonreactive (BEAKER) (test code = 645) Actuarial Intern ID - GENARO CHEPATITIS A ANTIBODY, [id number] 09:26:00 Test Item Value Reference Range Interpretation Comments HEPATITIS A IGM ANTIBODY (BEAKER) Nonreactive Nonreactive (test code = 498) Actuarial Intern ID - GENARO NICHOLSONPATITIS B CORE ANTIBODY, [id number] 09:26:00 Test Item Value Reference Range Interpretation Comments HEPATITIS B CORE TOTAL ANTIBODY Nonreactive Nonreactive (BEAKER) (test code = 497) Actuarial Intern ID - GENARO NICHOLSONPATITIS B SURFACE [id number] 09:23:00 Test Item Value Reference Range Interpretation Comments HEPATITIS B SURFACE ANTIGEN (2) Nonreactive Nonreactive (BEAKER) (test code = 2585) Specimen is considered negative for HBsAg.HEPATITIS B SURFACE [id number] 09:23:00 Test Item Value Reference Range Interpretation Comments HEPATITIS B SURFACE ANTIBODY 60.7 mIU/mL <8.0 H (BEAKER) (test code = 647) Actuarial Intern ID - GENARO BAIRD C [id number] 09:23:00 Test Item Value Reference Range Interpretation Comments HEPATITIS C ANTIBODY (BEAKER) Nonreactive Nonreactive (test code = 367) Actuarial Intern ID - GENARO CHIV-1 ANTIGEN WITH HIV-1/2 [id number] 09:23:00 Test Item Value Reference Range Interpretation Comments HIV-1 ANTIGEN WITH HIV 1\\T\\2 Nonreactive Nonreactive ANTIBODY (2) (BEAKER) (test code = 2586) Actuarial Intern ID - GENARO CVITAMIN D, [id number] 09:20:00 Test Item Value Reference Range Interpretation Comments VITAMIN D 25-OH (BEAKER) (test 12.7 ng/mL 6.6-49.9 code = 2764) Effective 04/10/2017: Reference Range ChangeNew: 6.6-49.9 ng/mL Previous: 13.0- 47.8 ng/mLRecommendedVitamin D Target Range: 30.0-40.0 ng/mLOperator ID - GENARO C COMPREHENSIVE METABOLIC [id number] 09:05:00 Test Item Value Reference Range Interpretation [...] S NOT APPLICABLE FOR DIALYSIS PATIEN TS. Actuarial Intern ID - GENARO [id number] 09:01:00 Test Item Value Reference Range Interpretation Comments TRANSFERRIN (BEAKER) (test code = 134 mg/dL 174-382 L 541) Actuarial Intern ID - GENARO CURIC [id number] 08:57:00 Test Item Value Reference Range Interpretation Comments URIC ACID (BEAKER) (test code = 15.2 mg/dL 2.6-7.2 H 773) Actuarial Intern ID - GENARO [id number] 08:57:00 Test Item Value Reference Range Interpretation Comments MAGNESIUM (BEAKER) (test code = 2.4 mg/dL 1.6-2.6 627) Actuarial Intern ID - GENARO [id number] 08:57:00 Test Item Value Reference Range Interpretation Comments PHOSPHORUS (BEAKER) (test code = 3.0 mg/dL 2.3-4.7 604) Actuarial Intern ID - GENARO CLIPID [id number] 08:57:00 Test Item Value Reference Range Interpretation [...] Borderline 130-159 High 160-189 Very High >=190 Actuarial Intern ID - GENARO CBILIRUBIN, [id number] 08:57:00 Test Item Value Reference Range Interpretation Comments BILIRUBIN DIRECT (BEAKER) (test 0.9 mg/dL 0.1-0.5 H code = 706) Actuarial Intern ID - GENARO CGAMMA GLUTAMYL TRANSFERASE (GGT)2020-04-06 08:57:00 Test Item Value Reference Range Interpretation Comments GAMMA GLUTAMYL TRANSFERASE (BEAKER) 46 U/L 9-64 (test code = 364) Actuarial Intern ID - GENARO [id number] 08:57:00 Test Item Value Reference Range Interpretation Comments ETHANOL (BEAKER) (test code = 400) < mg/dL <=10 Actuarial Intern ID - GENARO CCBC W/PLT COUNT & AUTO [id number] 08:56:00 Test Item Value Reference Range Interpretation [...] (BEAKER) (test code = 2801) URINALYSIS W/ [id number] 08:49:00 Test Item Value Reference Range Interpretation [...] /LPF 514) SOURCE(BEAKER) (test code = 2795) Actuarial Intern ID - [auto]Actuarial Intern ID - [id number] 08:48:00 Test Item Value Reference Range Interpretation Comments PARTIAL THROMBOPLASTIN TIME 33.4 seconds 22.5-36.0 (BEAKER) (test code = 760) [id number] 08:48:00 Test Item Value Reference Range Interpretation Comments FIBRINOGEN LEVEL (BEAKER) (test 163 mg/dl 225-434 L code = 658) PROTHROMBIN TIME/[id number] 08:47:00 Test Item Value Reference Range Interpretation [...] 2.5-3.5 for patients wiht mechanical heart valves.CALCIUM, [id number] 08:32:00 Test Item Value Reference Range Interpretation Comments CALCIUM IONIZED (BEAKER) (test 1.15 mmol/L 1.12-1.27 code = 698) PH, BLOOD (BEAKER) (test code = 7.33 1810) TACROLIMUS [id number] 08:39:00 Test Item Value Reference Range Interpretation Comments TACROLIMUS BLOOD (BEAKER) (test 8.3 ng/mL 10.0-20.0 L code = 657) Actuarial Intern ID - RMALPHA FETOPROTEIN (AFP), TUMOR [id number] 19:02:00 Test Item Value Reference Range Interpretation Comments ALPHA-FETOPROTEIN (BEAKER) (test 3.0 ng/mL <10.0 code = 1094) Actuarial Intern ID - BSBASIC METABOLIC [id number] 17:37:00 Test Item Value Reference Range Interpretation [...] S NOT APPLICABLE FOR DIALYSIS PATIEN TS. Actuarial Intern ID - BSSpecimen slightly ictericHEPATIC FUNCTION [id number] 17:32:00 Test Item Value Reference Range Interpretation [...] (test code = 25 U/L 6-55 347) Actuarial Intern ID - BSSpecimen slightly ictericCBC W/PLT COUNT [...] PERCENT (BEAKER) (test code = 2801) PROTHROMBIN TIME/[id number] 15:49:00 Test Item Value Reference Range Interpretation [...] for patients wiht mechanical heart valves.CMV PCR, [id number] 19:30:00 Test Item Value Reference Range Interpretation Comments CMV VIRAL LOAD - POSITIVE Se e Scanned Report. (BEAKER) (test code = 1557) CMV VIRAL LOAD - NEGATIVE Se e Scanned Report. (BEAKER) (test code = 2558) BASIC METABOLIC [id number] 14:13:00 Test Item Value Reference Range Interpretation [...] S NOT APPLICABLE FOR DIALYSIS PATIEN TS. Actuarial Intern ID - GENARO CTACROLIMUS [id number] 10:37:00 Test Item Value Reference Range Interpretation Comments TACROLIMUS BLOOD (BEAKER) (test 8.3 ng/mL 10.0-20.0 L code = 657) Actuarial Intern ID - TODDHAMIDBASIC METABOLIC [id number] 07:48:00 Test Item Value Reference Range Interpretation [...] S NOT APPLICABLE FOR DIALYSIS PATIEN TS. Actuarial Intern ID - GENARO [id number] 07:35:00 Test Item Value Reference Range Interpretation Comments MAGNESIUM (BEAKER) (test code = 1.9 mg/dL 1.6-2.6 627) Actuarial Intern ID - GENARO CBASIC METABOLIC [id number] 14:54:00 Test Item Value Reference Range Interpretation [...] S NOT APPLICABLE FOR DIALYSIS PATIEN TS. Actuarial Intern ID - BSTACROLIMUS [id number] 09:59:00 Test Item Value Reference Range Interpretation Comments TACROLIMUS BLOOD (BEAKER) (test 11.6 ng/mL 10.0-20.0 code = 657) Actuarial Intern ID - SAMY KOCHITAMIN D, [id number] 08:26:00 Test Item Value Reference Range Interpretation Comments VITAMIN D 25-OH (BEAKER) (test code 8.5 ng/mL 6.6-49.9 = 2764) Effective 04/10/2017: Reference Range ChangeNew: 6.6-49.9 ng/mL Previous: 13.0- 47.8 ng/mLRecommendedVitamin D Target Range: 30.0-40.0 ng/mLOperator ID - NTP HEPATIC FUNCTION [id number] 08:00:00 Test Item Value Reference Range Interpretation [...] (test code = 40 U/L 6-55 347) Actuarial Intern ID - NTPCBC (HEMOGRAM ONLY)2020-02-25 07:01:00 Test [...] 0-0 (test code = 413) BASIC METABOLIC [id number] 07:01:00 Test Item Value Reference Range Interpretation [...] S NOT APPLICABLE FOR DIALYSIS PATIEN TS. Actuarial Intern ID - [id number] 06:49:00 Test Item Value Reference Range Interpretation Comments MAGNESIUM (BEAKER) (test code = 2.0 mg/dL 1.6-2.6 627) Actuarial Intern ID - NTPPTH, [id number] 06:44:00 Test Item Value Reference Range Interpretation Comments PARATHYROID HORMONE INTACT 425.2 pg/mL 8.5-72.5 H (BEAKER) (test code = 577) Actuarial Intern ID - NTPU/S, ABDOMINAL, WITH [id number] 23:24:00Referring: Dr. Diane Eastman/ [place] for exam:->HCC [...] The main portal vein and branches are p atent and demonstrate appropriate directional flow. The peak systolic velocity in the main portal vein is 26 cm/s. The TIPS is patent without a velocity gradient to suggest thrombosis or stenosis. The peak systolic velocities in the proximal, mid and distal TIPS are 120 cm/s, 118 cm/s and 99 cm/s respectively. The proper, right and left hepatic arteries are patent with normal waveforms. The resistiveindices in the proper, right and left hepatic arteries are 0.7, 0.8 and 0.8 respectively. The hepatic confluence, main hepatic vein and branches are patent with normal waveforms. The splenic vein at the pancreatic head and tail are patent with normal waveforms. Impression:Cirrhosis and evidence of port al hypertension. Small liver cyst. Please note that liver protocol CT or MRI is more sensitive for the evaluation of HCC. Patent TIPS. No evidence of thrombosis. Elevated resistive indices in the rightand left hepatic arteries. Cholelithiasis without sonographic evidence of acute cholecystitis. Small abdominal ascites. Signed: [facility] Yee [facility] Verified Date/Time: 02/24/2020 23:24:17 CHLORIDE, RANDOM [id number] 18:44:00 Test Item Value Reference Range Interpretation Comments CHLORIDE URINE (BEAKER) (test code 130 meq/L = 682) Reference Range: No NormalsOperator ID - BSCREATININE, RANDOM [id number] 18:44:00 Test Item Value Reference Range Interpretation Comments CREATININE URINE (BEAKER) (test 27.5 mg/dL code = 375) Reference Range: No NormalsOperator ID - BSPOTASSIUM, RANDOM [id number] 18:44:00 Test Item Value Reference Range Interpretation Comments POTASSIUM URINE (BEAKER) (test 26.2 meq/L code = 195) Reference Range: No NormalsOperator ID - BSSODIUM, RANDOM [id number] 18:44:00 Test Item Value Reference Range Interpretation Comments SODIUM URINE (BEAKER) (test code = 102 meq/L 243) Reference Range: No NormalsOperator ID - BSUREA NITROGEN, RANDOM [id number] 18:44:00 Test Item Value Reference Range Interpretation Comments UREA NITROGEN URINE (BEAKER) (test 122 mg/dL code = 538) Reference Range: No NormalsOperator ID - BSBLOOD GAS, [id number] 18:33:00 Test Item Value Reference Range Interpretation [...] code = 1819) 21.0 % BASIC METABOLIC [id number] 13:33:00 Test Item Value Reference Range Interpretation [...] S NOT APPLICABLE FOR DIALYSIS PATIEN TS. Actuarial Intern ID - GENARO CTACROLIMUS [id number] 11:30:00 Test Item Value Reference Range Interpretation Comments TACROLIMUS BLOOD (BEAKER) (test 13.2 ng/mL 10.0-20.0 code = 657) Actuarial Intern ID - SAMY MCKEEBASIC METABOLIC [id number] 07:00:00 Test Item Value Reference Range Interpretation [...] S NOT APPLICABLE FOR DIALYSIS PATIEN TS. Actuarial Intern ID - EDASIPROTHROMBIN TIME/[id number] 06:41:00 Test Item Value Reference Range Interpretation [...] for patients wiht mechanical heart valves.U/S, RENAL, [id number] 01:22:00Referring: Dr. Diane Eastman/ [place] for exam:->NOHEMI on [id number] REPORT TECHNIQUE: Grayscale ultrasound of the kidneys [...] Range: No NormalsOperator ID - BSPROTEIN, RANDOM [id number] 21:28:00 Test Item Value Reference Range Interpretation Comments PROTEIN, URINE (BEAKER) (test code = 7 mg/dL 0-14 1569) Actuarial Intern ID - BSSODIUM, RANDOM [id number] 21:28:00 Test Item Value Reference Range Interpretation Comments SODIUM URINE (BEAKER) (test code = 67 meq/L 243) Reference Range: No NormalsOperator ID - BSURINALYSIS W/ [id number] 21:12:00 Test Item Value Reference Range Interpretation [...] = 1521) SOURCE(BEAKER) (test code = 2795) Actuarial Intern ID - [auto]Actuarial Intern ID - [id number] 19:00:00 Test Item Value Reference Range Interpretation Comments FERRITIN (BEAKER) (test code = 71.41 ng/mL 5.00-275.00 361) Actuarial Intern ID - BSVITAMIN B12 AND [id number] 19:00:00 Test Item Value Reference Range Interpretation Comments VITAMIN B12 (BEAKER) (test code = 633 pg/mL 213-816 774) FOLATE (BEAKER) (test code = 362) 16.00 ng/mL >=7.00 Actuarial Intern ID - BSB-TYPE NATRIURETIC FACTOR (BNP)2020-02-23 18:31:00 Test Item Value Reference Range Interpretation Comments B-TYPE NATRIURETIC PEPTIDE 1388 pg/mL 0-100 H (BEAKER) (test code = 700) Actuarial Intern ID - BSIRON, TIBC, % SAT. (WITHOUT FERRITIN)2020-02-23 18:24:00 Test Item Value Reference Range Interpretation Comments IRON (BEAKER) (test code = 547) 111.0 ug/dL 40.0-160.0 TOTAL IRON BINDING CAPACITY 214 ug/dL 250-450 L (BEAKER) (test code = 769) IRON % SATURATION (2) (BEAKER) 52 % 20-55 (test code = 2590) Actuarial Intern ID - BSBASIC METABOLIC [id number] 18:24:00 Test Item Value Reference Range Interpretation [...] S NOT APPLICABLE FOR DIALYSIS PATIEN TS. Actuarial Intern ID - BSSARS-COV2/RT-PCR ([facility] [facility])2020-02-23 15:02:00 Test Item Value Reference Range Interpretation Comments SARS-COV2/RT-PCR (test code Negative Not Detected, Negative, = 8539451) See external report for linked test SARS-COV-2 PERFORMING LAB [facility] (test code = 3382059) Negative results do not preclude SARS-CoV-2 infection [...] of the Act.Fact Sheet for Healthcare Pro viders:https://www.[employer]/Documents/Xpert%20Xpress%20SARS%20CoV-2/Fact%20Sh eets/302-3802%76ZJSM-RGU-0%20HEALTHCARE%20PROVIDERS%20FACT%20SHEET.pdfFact Sheet for Healthcare Patients:https://www.[employer]/Documents/Xpert%20Xpress%20SARS%20CoV-2/Fact%20Sheets/302-3801%20SARS-COV -2%20PATIENT%20FACT%20SHEET.pdfPerforming Laboratory:[address], [place] [address]WBASWQVPWJ [id number] 12:46:00 Test Item Value Reference Range Interpretation Comments TACROLIMUS BLOOD (BEAKER) (test 18.3 ng/mL 10.0-20.0 code = 657) Actuarial Intern ID - RMRAD, CHEST, 2 [id number] 11:47:00Referring: Dr. Diane Eastman/ [place] for Exam:->s/p [...] Fernandez Verified Date/Time: 02/23/2020 11:47:27 Reading Location: [facility] Radiology Reading Room HEMOGLOBIN [id number] 11:44:00 Test Item Value Reference Range Interpretation Comments HEMOGLOBIN A1C (BEAKER) (test code = < % 4.3-6.1 L 368) COMPREHENSIVE METABOLIC [id number] 11:14:00 Test Item Value Reference Range Interpretation [...] S NOT APPLICABLE FOR DIALYSIS PATIEN TS. Actuarial Intern ID - [id number] 11:08:00 Test Item Value Reference Range Interpretation Comments PHOSPHORUS (BEAKER) (test code = 5.4 mg/dL 2.3-4.7 H 604) Actuarial Intern ID - [id number] 11:08:00 Test Item Value Reference Range Interpretation Comments MAGNESIUM (BEAKER) (test code = 2.3 mg/dL 1.6-2.6 627) Actuarial Intern ID - NTPCBC W/PLT COUNT & AUTO [id number] 10:57:00 Test Item Value Reference Range Interpretation [...] PERCENT (BEAKER) (test code = 2801) BLOOD [id number] 22:00:00 Test Item Value Reference Range Interpretation Comments CULTURE (BEAKER) (test No growth in 5 days code = 1095) BLOOD [id number] 22:00:00 Test Item Value Reference Range Interpretation Comments CULTURE (BEAKER) (test No growth in 5 days code = 1095) LACTIC ACID, [id number] 00:13:00 Test Item Value Reference Range Interpretation Comments LACTATE BLOOD VENOUS (2) (BEAKER) 1.38 mmol/L 0.50-2.20 (test code = 2872) Actuarial Intern ID - PIAYA LSARS-COV2/RT-PCR ([facility])2019-12-10 21:39:00 Test Item Value Reference Range Interpretation Comments SARS-COV2/RT-PCR (test Not Detected Not Detected, Negative code = 8449632) SARS-COV-2 PERFORMING LAB [facility] (test code = 6978136) Negative results do not preclude SARS-CoV-2 infection [...] of the Act.Fact Sheet for Healthcare Pro viders:https://www.[employer]/Documents/Xpert%20Xpress%20SARS%20CoV-2/Fact%20Sh eets/302-3802%08UTRO-NOG-6%20HEALTHCARE%20PROVIDERS%20FACT%20SHEET.pdfFact Sheet for Healthcare Patients:https://www.[employer]com/Documents/Xpert%20Xpress%20SARS%20CoV-2/Fact%20Sheets/302-3801%20SARS-COV -2%20PATIENT%20FACT%20SHEET.pdfPerforming Laboratory:[facility], [place] [address]UHPMBDVW [id number] 20:47:00 Test Item Value Reference Range Interpretation [...] failure, acidosis, acute neurological disease, and persistent tachyarrhythmia.Actuarial Intern ID - BSB-TYPE NATRIURETIC FACTOR (BNP)2019-12-10 20:45:00 Test Item Value Reference Range Interpretation Comments B-TYPE NATRIURETIC PEPTIDE 1761 pg/mL 0-100 H (BEAKER) (test code = 700) Actuarial Intern ID - [id number] 20:44:00 Test Item Value Reference Range Interpretation Comments PARTIAL THROMBOPLASTIN TIME 36.0 seconds 22.5-36.0 (BEAKER) (test code = 760) PROTHROMBIN [id number] 20:43:00 Test Item Value Reference Range Interpretation [...] for patients wiht mechanical heart valves.HEPATIC FUNCTION [id number] 20:41:00 Test Item Value Reference Range Interpretation [...] (test code = 36 U/L 6-55 347) Actuarial Intern ID - BSBASIC METABOLIC [id number] 20:41:00 Test Item Value Reference Range Interpretation [...] S NOT APPLICABLE FOR DIALYSIS PATIEN TS. Actuarial Intern ID - BSLACTIC ACID, [id number] 20:35:00 Test Item Value Reference Range Interpretation Comments LACTATE BLOOD VENOUS (2) (BEAKER) 2.02 mmol/L 0.50-2.20 (test code = 2872) Actuarial Intern ID - BSCBC W/PLT COUNT & AUTO [id number] 20:32:00 Test Item Value Reference Range Interpretation [...] = 2801) RAD, CHEST, 1 VIEW, NON [id number] 20:23:00Referring: Dr. Diane Fernando for exam:->SHORTNESS OF [...] MDReport Verified Date/Time: 12/10/2019 20:23:47 CMV PCR, [id number] 14:32:00 Test Item Value Reference Range Interpretation [...] and its performance characteristics determined by the [facility] Pathol ogy Department, Section of Molecular Pathology. [...] ng/mL 10.0-20.0 code = 657) [facility] by [facility] LaboratoryALPHA FETOPROTEIN (AFP), TUMOR [id number] 18:05:00 Test Item Value Reference Range Interpretation Comments ALPHA-FETOPROTEIN (BEAKER) (test 2.8 ng/mL <10.0 code = 1094) Actuarial Intern ID - BSHEPATIC FUNCTION [id number] 15:21:00 Test Item Value Reference Range Interpretation [...] (test code = 42 U/L 6-55 347) Actuarial Intern ID - BSBASIC METABOLIC [id number] 15:21:00 Test Item Value Reference Range Interpretation [...] S NOT APPLICABLE FOR DIALYSIS PATIEN TS. Actuarial Intern ID - BSPROTHROMBIN TIME/[id number] 15:03:00 Test Item Value Reference Range Interpretation [...] mechanical heart valves.CBC W/PLT COUNT & AUTO [id number] 14:52:00 Test Item Value Reference Range Interpretation [...] PERCENT (BEAKER) (test code = 2801) TISSUE [id number] 10:25:00Surgical Pathology Report Case: [id number] Authorizing Provider: Aaron Green MD Collected: 08/31/2019 1120 Ordering Location: [facility] Radiology Angio Received: 08/31/2019 1257 Pathologist: Mandie Tyler MD Specimen: Biopsy, Liver LIVER, TRANSJUGULAR NEEDLE BIOPSIES- FIBROSIS STAGE 4 OF 4, CONSISTENT WITH CIRRHOSIS- see comment Signing Pathologist Direct Phone Line: [phone] signed by aMndie Tyler MD on 09/04/2019 at 10:25 AMThe liver biopsy shows foci of sinusoidal d ilatation and congestion with dilated venous radicals. These features could be secondary to portal hypertension or may suggest a chronic venous outflow obstruction. 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 A. Liver biopsyThe case is received in one part labeled with the patient's information as [id number] which correspondsto the accompanying requisition slip. A. [...] evaluated Immunohistochemistry technical testing was performed at [facility], Pathology Laboratory where it was developedand [...] qualified to perform high complexity clinical laboratory testing.TIM [id number] 18:36:00 Referring: Dr. Diane Fernando for Exam:->refractory ascitesFINAL REPORT History: Portal hypertension, recurrent ascites. PROCEDURE: Following informed written consent, general endotracheal anesthesia was administered and the patient's right cervical region was prepped and draped in the usual sterile manner. Maximum sterile barrier techniques were utilized. Access was gained to the right internal jugular vein using ultrasound guidance mihir micropuncture needle. A 10 Qatari sheath was placed at the access site. A 5 Qatari multipurpose catheter and Smith wire were then [...] superior mesenteric vein. A 45 cm 10 Qatari sheath was advanced over the wire into [...] Persistent hepatopedal flow is seen in the [place] portal veins. No varices are identified. Post [...] reported as (Ka,r): 358 mGy Signed: Denilson Liaoort Verified Date/Time: 09/01/2019 18:36:48 Reading Location: [place] [address] Angio Body Reading Room BILIRUBIN, [id number] 07:58:00 Test Item Value Reference Range Interpretation Comments BILIRUBIN DIRECT (BEAKER) (test 0.6 mg/dL 0.1-0.5 H code = 706) Actuarial Intern ID - SAMY MCOMPREHENSIVE METABOLIC [id number] 07:58:00 Test Item Value Reference Range Interpretation [...] S NOT APPLICABLE FOR DIALYSIS PATIEN TS. Actuarial Intern ID - SAMY MPROTHROMBIN TIME/[id number] 07:53:00 Test Item Value Reference Range Interpretation [...] is 2.5-3.5 for patients wiht mechanical heart valves.[id number] 07:53:00 Test Item Value Reference Range Interpretation Comments PARTIAL THROMBOPLASTIN TIME 36.5 seconds 22.5-36.0 H (BEAKER) (test code = 760) CBC W/PLT COUNT & AUTO [id number] 07:45:00 Test Item Value Reference Range Interpretation [...] PERCENT (BEAKER) (test code = 2801) TACROLIMUS [id number] 11:25:00 Test Item Value Reference Range Interpretation Comments TACROLIMUS BLOOD (BEAKER) (test 5.7 ng/mL 10.0-20.0 L code = 657) Actuarial Intern ID - MARCELLE FBASIC METABOLIC [id number] 07:04:00 Test Item Value Reference Range Interpretation [...] S NOT APPLICABLE FOR DIALYSIS PATIEN TS. Actuarial Intern ID - [id number] 06:37:00 Test Item Value Reference Range Interpretation Comments PARTIAL THROMBOPLASTIN TIME 33.2 seconds 22.5-36.0 (BEAKER) (test code = 760) PROTHROMBIN TIME/[id number] 06:36:00 Test Item Value Reference Range Interpretation [...] mechanical heart valves.CBC W/PLT COUNT & AUTO [id number] 06:26:00 Test Item Value Reference Range Interpretation [...] = 2801) U/S, HEPATIC PORTAL VESSEL WITH [id number] 22:44:00Referring: Dr. Diane Fernando for exam:->Assess for [...] MDReport Verified Date/Time: 08/25/2019 22:44:25 Reading Location: [address] Consult Reading Room CBC W/PLT COUNT & AUTO [id number] 10:38:00 Test Item Value Reference Range Interpretation [...] CONCENTRATION Decreased (CELLAVISION)(BEAKER) (test code = 3438) Actuarial Intern ID - Ade Lucero comments: Slide comments:TACROLIMUS [id number] 09:27:00 Test Item Value Reference Range Interpretation Comments TACROLIMUS BLOOD (BEAKER) (test 7.6 ng/mL 10.0-20.0 L code = 657) Actuarial Intern ID - MARCELLE FBASIC METABOLIC [id number] 08:01:00 Test Item Value Reference Range Interpretation [...] S NOT APPLICABLE FOR DIALYSIS PATIEN TS. Actuarial Intern ID - SAMY MPROTHROMBIN TIME/[id number] 07:12:00 Test Item Value Reference Range Interpretation [...] is 2.5-3.5 for patients wiht mechanical heart valves.[id number] 07:12:00 Test Item Value Reference Range Interpretation Comments PARTIAL THROMBOPLASTIN TIME 33.9 seconds 22.5-36.0 (BEAKER) (test code = 760) CBC W/PLT COUNT & AUTO [id number] 11:28:00 Test Item Value Reference Range Interpretation [...] CONCENTRATION Decreased (CELLAVISION)(BEAKER) (test code = 3438) Actuarial Intern ID [place] Bhandari OverholtUser comments: Slide comments:HEPATIC [...] (test code = 35 U/L 6-55 347) Actuarial Intern ID - MARCELLE FBASIC METABOLIC [id number] 07:38:00 Test Item Value Reference Range Interpretation [...] S NOT APPLICABLE FOR DIALYSIS PATIEN TS. Actuarial Intern ID - MARCELLE FGAMMA GLUTAMYL TRANSFERASE (GGT)2019-08-24 07:38:00 Test Item Value Reference Range Interpretation Comments GAMMA GLUTAMYL TRANSFERASE (BEAKER) 151 U/L 9-64 H (test code = 364) Actuarial Intern ID - MARCELLE FU/S, ABDOMINAL, [id number] 15:29:00Referring: Dr. Diane Eastman Labs to be [...] Harperort Verified Date/Time: 08/23/2019 15:29:24 Reading Location: [address] Ortho Consult Reading Room U/S, TESTICULAR, WITH [id number] 15:29:00Referring: Dr. Diane Fernando for exam:->ASCITESReason for [...] Harper Verified Date/Time: 08/23/2019 15:29:24 Reading Location: [facility] C013X Ortho Consult Reading Room [id number] 11:14:00 Test Item Value Reference Range Interpretation Comments LIPASE (BEAKER) (test code = 749) 37 U/L 8-78 Actuarial Intern ID - MARCELLE [id number] 11:14:00 Test Item Value Reference Range Interpretation Comments AMYLASE (BEAKER) (test code = 349) 80 U/L 25-125 Actuarial Intern ID - MARCELLE FBASIC METABOLIC [id number] 11:14:00 Test Item Value Reference Range Interpretation [...] S NOT APPLICABLE FOR DIALYSIS PATIEN TS. Actuarial Intern ELIZABETH IBANEZ FHEPATIC FUNCTION [id number] 11:14:00 Test Item Value Reference Range Interpretation [...] (test code = 34 U/L 6-55 347) Actuarial Intern ELIZABETH IBANEZ [id number] 11:09:00 Test Item Value Reference Range Interpretation Comments PARTIAL THROMBOPLASTIN TIME 28.8 seconds 22.5-36.0 (BEAKER) (test code = 760) PROTHROMBIN [id number] 11:08:00 Test Item Value Reference Range Interpretation [...] mechanical heart valves.CBC W/PLT COUNT & AUTO [id number] 10:53:00 Test Item Value Reference Range Interpretation [...] = 2801) BODY FLUID CELL COUNT WITH [id number] 14:49:00 Test Item Value Reference Range Interpretation [...] EDTA Tube (test code = 2873) TACROLIMUS [id number] 14:35:00 Test Item Value Reference Range Interpretation Comments TACROLIMUS BLOOD (BEAKER) (test 6.7 ng/mL 10.0-20.0 L code = 657) Actuarial Intern ID - SAMY DAWN/Cassandra, [id number] 13:52:00Referring: Dr. Diane Sears ascitic fluid for cell count and differential If Cr > 1.5, do not remove more than 3.5L of ascitic fluid. If > 3L removed, please administer 200 mL of albumin 25%(50 grams) IV x 1Labs to be ordered:->Other (please add comment)Reason for Exam:->ascitesFINAL REPORT Ultrasound guided paracentesis Clinical History: Ascites. Sedation: None. Fiberglass Autobody Repairer: Aure Huerta PA-C Supervising Physician: Edmund Barraza MD Product Safety Administrator: None. Estimated Blood Loss: < 1 mL. [...] anesthesia was achieved with lidocaine, a 5 Qatari one-step catheter was advanced into the peritoneal cavity under ultrasound guidance. After completion of drainage, the catheter was removed. There was no evidence of complication. Impression:Successful ultrasound guided paracentesis. Signed: Edmund Barraza MDReport Verified Date/Time: 08/19/2019 13:52:23 Reading Location: [address] Ultrasound Reading Room BASI METABOLIC [id number] 13:08:00 Test Item Value Reference Range Interpretation [...] S NOT APPLICABLE FOR DIALYSIS PATIEN TS. Actuarial Intern ID - ROSIANGCBC W/PLT COUNT & AUTO [id number] 12:54:00 Test Item Value Reference Range Interpretation [...] 0-1 PERCENT (BEAKER) (test code = 2801) [id number] 11:24:00 Test Item Value Reference Range Interpretation Comments POC-CREATININE 1.9 mg/dL 0.6-1.3 H : TESTED AT [facility] (BEAKER) (test [address] [facility] code = 1859) [place], [address]: Actuarial Intern/Techni demetrice ID = [id number] for SHOULDERS, ELLE IFER POC-EGFR (BEAKER) 36 mL/min/1.73M2 (test code = 1860) BODY FLUID CELL COUNT WITH [id number] 19:33:00 Test Item Value Reference Range Interpretation [...] EDTA Tube (test code = 2873) U/S, [id number] 17:37:00Referring: Dr. Diane Sears ascitic fluid for [...] skin and deep soft tissues. A 5 Qatari one-step catheter was inserted and removed from the peritoneal space and approximately 3.2 liters of clear yellow fluid was aspirated from the abdomen. Specimens were collected for the lab. There were no immediate complications. Impression: Successful ultrasound guided paracentesis with aspiration of 3.2 liters of fluid. Signed: Javed Paezeport Verified Date/Time: 08/12/2019 17:37:37 Reading Location: [address] Body Reading Room -[id number] 16:08:00 Test Item Value Reference Range Interpretation Comments POC-CREATININE 2.2 mg/dL 0.6-1.3 H TESTED AT [facility] [address] (BEAKER) (test [place] code = 1859) [address] POC-EGFR (BEAKER) 30 mL/min/1.73M2 (test code = 1860) BODY FLUID CELL COUNT WITH [id number] 15:08:00 Test Item Value Reference Range Interpretation [...] EDTA Tube (test code = 2873) U/S, [id number] 13:11:00Referring: Dr. Diane Sears ascitic fluid for cell count and differential If Cr > 1.5, do not remove more than 3.5L of ascitic fluid. If > 3L removed, please administer 200 mL of albumin 25%(50 grams) IV x 1Labs to be ordered:->Other (please add comment)Reason for Exam:->ascitesFINAL REPORT Ultrasound guided paracentesis. Clinical History: Ascites. Sedation: None. Fiberglass Autobody Repairer: Lynn Chávez PA-C Product Safety Administrator: None. Estimated Blood Loss: < 1 cc. [...] abdomen was selected for paracentesis. After the large st fluid pocket area was marked, and the anterior abdominal wall was evaluated with color Doppler toexclude presence of blood vessels traversing the area, the skin was prepped and draped in the usual sterile manner. After local anesthesia was achieved with 2% lidocaine, a 5 Qatari one-step catheter was advanced into the peritoneal cavity under ultrasound guidance. After completion of drainage, the catheter was removed. There was no evidence of complication. Impression:Successful ultrasound guided paracentesis. Signed: Edmund Barraza MDReport Verified Date/Time: 08/05/2019 13:11:25 Reading Location: [address] Ultrasound Reading Room [id number] 09:57:00 Test Item Value Reference Range Interpretation Comments POC-CREATININE 1.6 mg/dL 0.6-1.3 H TESTED AT [facility] 67[address] (BEAKER) (test [place] code = 1859) [address] POC-EGFR (BEAKER) 44 mL/min/1.73M2 (test code = 1860) BODY FLUID CELL COUNT WITH [id number] 22:25:00 Test Item Value Reference Range Interpretation [...] Vial (test code = 2873) HEPATIC FUNCTION [id number] 17:04:00 Test Item Value Reference Range Interpretation [...] (test code = 23 U/L 6-55 347) Actuarial Intern ID - PIAYA LBASIC METABOLIC [id number] 17:04:00 Test Item Value Reference Range Interpretation [...] S NOT APPLICABLE FOR DIALYSIS PATIEN TS. Actuarial Intern ID - PIAYA [id number] 17:00:00 Test Item Value Reference Range Interpretation [...] mechanical heart valves.CBC W/PLT COUNT & AUTO [id number] 16:45:00 Test Item Value Reference Range Interpretation [...] PERCENT (BEAKER) (test code = 2801) BLOOD [id number] 14:00:00 Test Item Value Reference Range Interpretation Comments CULTURE (BEAKER) (test No growth in 5 days code = 1095) BLOOD [id number] 14:00:00 Test Item Value Reference Range Interpretation Comments CULTURE (BEAKER) (test No growth in 5 days code = 1095) BODY FLUID CULTURE + GRAM [id number] 09:19:00 Test Item Value Reference Range Interpretation Comments CULTURE (BEAKER) (test No growth code = 1095) GRAM STAIN RESULT 2+ White blood cells (BEAKER) (test code = seen 1123) GRAM STAIN RESULT No organisms seen (BEAKER) (test code = 08782) TACROLIMUS [id number] 11:05:00 Test Item Value Reference Range Interpretation Comments TACROLIMUS BLOOD (BEAKER) (test 9.4 ng/mL 10.0-20.0 L code = 657) Actuarial Intern ID [place] IBANEZ FBASIC METABOLIC [id number] 07:34:00 Test Item Value Reference Range Interpretation [...] S NOT APPLICABLE FOR DIALYSIS PATIEN TS. Actuarial Intern ID [place] PEÑA [id number] 07:30:00 Test Item Value Reference Range Interpretation Comments PHOSPHORUS (BEAKER) (test code = 2.8 mg/dL 2.3-4.7 604) Actuarial Intern ID - CASEY [id number] 07:30:00 Test Item Value Reference Range Interpretation Comments MAGNESIUM (BEAKER) (test code = 1.7 mg/dL 1.6-2.6 627) Actuarial Intern ID [place] PEÑA MHEPATIC FUNCTION [id number] 07:30:00 Test Item Value Reference Range Interpretation [...] (test code = 18 U/L 6-55 347) Actuarial Intern ID [place] PEÑA MCBC W/PLT COUNT & AUTO [id number] 07:15:00 Test Item Value Reference Range Interpretation [...] PERCENT (BEAKER) (test code = 2801) TACROLIMUS [id number] 14:21:00 Test Item Value Reference Range Interpretation Comments TACROLIMUS BLOOD (BEAKER) (test 5.3 ng/mL 10.0-20.0 L code = 657) Actuarial Intern ID - AAHAMIDBASIC METABOLIC [id number] 07:26:00 Test Item Value Reference Range Interpretation [...] S NOT APPLICABLE FOR DIALYSIS PATIEN TS. Actuarial Intern ID - MARCELLE [id number] 07:22:00 Test Item Value Reference Range Interpretation Comments PHOSPHORUS (BEAKER) (test code = 3.4 mg/dL 2.3-4.7 604) Actuarial Intern ID - MARCELLE [id number] 07:22:00 Test Item Value Reference Range Interpretation Comments MAGNESIUM (BEAKER) (test code = 1.9 mg/dL 1.6-2.6 627) Actuarial Intern ID [place] IBANEZ FHEPATIC FUNCTION [id number] 07:22:00 Test Item Value Reference Range Interpretation [...] (test code = 19 U/L 6-55 347) Actuarial Intern ID [place] IBANEZ FCBC W/PLT COUNT & AUTO [id number] 06:59:00 Test Item Value Reference Range Interpretation [...] PERCENT (BEAKER) (test code = 2801) U/S, [id number] 17:39:00Referring: Dr. Diane Olivas to be ordered:->Body Fluid Culture (w/Gram Stain, C\\T\\S)cell countReason for exam:- >ABDOMINAL PAINReason for exam:->EMESISFINAL REPORT Ultrasound guided paracentesis Clinical History: Ascites. Sedation: None. Fiberglass Autobody Repairer: Aure Huerta PA-C Supervising Physician: Denilson Liao MD Product Safety Administrator: None. Estimated Blood Loss: < 1 mL. [...] anesthesia was achieved with lidocaine, a 5 Qatari one-step catheter was advanced into the peritoneal cavity under ultrasound guidance. After completion of drainage, the catheter was removed. There was no evidence of complication. Impression:Successful ultrasound guided paracentesis. Signed: Denilson Liao MDReport Verified Date/Time: 07/28/2019 17:39:14 Reading Location: [address] Ultrasound Reading Room CMV PCR, [id number] 17:32:00 Test Item Value Reference Range Interpretation [...] and its performance characteristics determined by the [facility] Pathol ogy Department, Section of Molecular Pathology. It has not been cleared or approved by the U.S. Foodand Drug Administration (FDA), since FDA approval is not required for clinical use of the test. Validation was done as required by The Clinical Laboratory Improvement Amendments of 1988.CBC W/PLT COUNT & AUTO [id number] 11:59:00 Test Item Value Reference Range Interpretation [...] CONCENTRATION Decreased (CELLAVISION)(BEAKER) (test code = 3438) Actuarial Intern ID - Phillip Ferrell comments: Slide comments:TACROLIMUS LEVEL 2019-07-28 10:17:00 Test Item Value Reference Range Interpretation Comments TACROLIMUS BLOOD (BEAKER) (test 3.9 ng/mL 10.0-20.0 L code = 657) Actuarial Intern ID - JONES, CHEST, 1 VIEW, NON [id number] 09:31:00Referring: Dr. Diane Fernando for exam:->s/p lung [...] MDReport Verified Date/Time: 07/28/2019 09:31:05 Reading Location: [facility] Reading Room [id number] 05:42:00 Test Item Value Reference Range Interpretation Comments PHOSPHORUS (BEAKER) (test code = 3.3 mg/dL 2.3-4.7 604) Actuarial Intern ID - CASEY [id number] 05:42:00 Test Item Value Reference Range Interpretation Comments MAGNESIUM (BEAKER) (test code = 2.0 mg/dL 1.6-2.6 627) Actuarial Intern ID - CASEY MBASIC METABOLIC [id number] 05:42:00 Test Item Value Reference Range Interpretation [...] S NOT APPLICABLE FOR DIALYSIS PATIEN TS. Actuarial Intern ID - CASEY MHEPATIC FUNCTION [id number] 05:42:00 Test Item Value Reference Range Interpretation [...] (test code = 21 U/L 6-55 347) Actuarial Intern ELIZABETH PEÑA MBODY FLUID CELL COUNT WITH [id number] 19:31:00 Test Item Value Reference Range Interpretation [...] pg/mL 0-100 H (test code = 700) Actuarial Intern ID [place] IBANEZ [id number] 13:07:00 Test Item Value Reference Range Interpretation Comments PHOSPHORUS (BEAKER) (test code = 2.5 mg/dL 2.3-4.7 604) Actuarial Intern ID [place] IBANEZ [id number] 13:07:00 Test Item Value Reference Range Interpretation Comments MAGNESIUM (BEAKER) (test code = 1.5 mg/dL 1.6-2.6 L 627) Actuarial Intern ID [place] IBANEZ FBASIC METABOLIC [id number] 13:07:00 Test Item Value Reference Range Interpretation [...] S NOT APPLICABLE FOR DIALYSIS PATIEN TS. Actuarial Intern ID [place] IBANEZ FHEPATIC FUNCTION [id number] 13:07:00 Test Item Value Reference Range Interpretation [...] (test code = 26 U/L 6-55 347) Actuarial Intern ID - MARCELLE [id number] 13:07:00 Test Item Value Reference Range Interpretation Comments AMYLASE (BEAKER) (test code = 349) 55 U/L 25-125 Actuarial Intern ID - MARCELLE [id number] 13:07:00 Test Item Value Reference Range Interpretation Comments LIPASE (BEAKER) (test code = 749) 14 U/L 8-78 Actuarial Intern ID - MARCELLE FLACTIC ACID, [id number] 13:01:00 Test Item Value Reference Range Interpretation Comments LACTATE BLOOD VENOUS 1.0 mmol/L 0.5-2.2 Specime n slightly (2) (BEAKER) (test hemolyzed code = 2872) Actuarial Intern ID - MARCELLE FCBC W/PLT COUNT & AUTO [id number] 12:40:00 Test Item Value Reference Range Interpretation [...] (BEAKER) (test code = 2801) BLOOD GAS, [id number] 12:40:00 Test Item Value Reference Range Interpretation [...] (BEAKER) (test code = 1819) 21.0 % [id number] 12:29:00 Test Item Value Reference Range Interpretation [...] 2.5-3.5 for patients wiht mechanical heart valves.U/S, [id number] 11:38:00 Referring: Dr. Diane Sears ascitic fluid for cell count and differential If Cr > 1.5, do not remove more than 3.5L of ascitic fluid. If > 3L removed, please administer 200 mL of albumin 25%(50 grams) IV x 1Labs to be ordered:->Other (please add comment)Reason for Exam:->ascitesFINAL REPORT Ultrasound guided paracentesis. Clinical History: Ascites. Sedation: None. Fiberglass Autobody Repairer: Lynn Chávez PA-C Product Safety Administrator: None. Estimated Blood Loss: < 1 cc. [...] was achieved with 2% lidocaine, a 5 Qatari one-step catheter was advanced into the peritoneal cavity under ultrasound guidance. After completion of drainage, the catheter was removed. There was no evidence of complication. Impression:Successful ultrasound guided paracentesis. Signed: Steven Kimbrough MDReport Verified Date/Time: 07/13/2019 11:38:58 Reading Location: [facility] P0J Ultrasound Reading Room D [id number] 13:44:00 Test Item Value Reference Range Interpretation Comments CULTURE (BEAKER) (test No growth in 5 days code = 1095) BLOOD [id number] 13:44:00 Test Item Value Reference Range Interpretation Comments CULTURE (BEAKER) (test No growth in 5 days code = 1095) BODY FLUID CULTURE + GRAM [id number] 10:08:00 Test Item Value Reference Range Interpretation Comments CULTURE (BEAKER) (test code No growth = 1095) GRAM STAIN RESULT (BEAKER) <1+ WBCs (test code = 1123) GRAM STAIN RESULT (BEAKER) No organisms seen (test code = 39505) [id number] 15:38:00 Test Item Value Reference Range Interpretation Comments POC-CREATININE 1.5 mg/dL 0.6-1.3 H TESTED AT [facility] [address] (BEAKER) (test [place] code = 1859) [address] POC-EGFR (BEAKER) 48 mL/min/1.73M2 (test code = 1860) TACROLIMUS [id number] 10:37:00 Test Item Value Reference Range Interpretation Comments TACROLIMUS BLOOD (BEAKER) (test 4.6 ng/mL 10.0-20.0 L code = 657) [id number] 07:42:00 Test Item Value Reference Range Interpretation Comments MAGNESIUM (BEAKER) (test code = 1.6 mg/dL 1.6-2.6 627) BASIC METABOLIC [id number] 07:42:00 Test Item Value Reference Range Interpretation [...] PATIEN TS. CBC W/PLT COUNT & AUTO [id number] 07:19:00 Test Item Value Reference Range Interpretation [...] = 2801) BODY FLUID CELL COUNT WITH [id number] 14:42:00 Test Item Value Reference Range Interpretation [...] EDTA Tube (test code = 2873) U/S, [id number] 13:48:00Referring: Dr. Diane Olivas to be ordered:->Body Fluid Culture (w/Gram Stain, C\\T\\S)fluid cell countLabs to be ordered:->Glucose+LDH+ProteinLabs to be ordered:->Other (please add comment)Reason for exam:->abdominal distention and ascites.FINAL REPORT Ultrasound guided paracentesis. Clinical History: Ascites. Sedation: None. Fiberglass Autobody Repairer: Lynn Chávez PA-C Product Safety Administrator: None. Estimated Blood Loss: < 1 cc. [...] was achieved with 2% lidocaine, a 5 Qatari one-step catheter was advanced into the peritoneal cavity under ultrasound guidance. After completion of drainage, the catheter was removed. There was no evidence of complication. Impression:Successful ultrasound guided paracentesis. Signed: Edmund Barraza MDReport Verified Date/Time: 07/07/2019 13:48:10 Reading Location: [place] [address]J Ultrasound Reading Room TACROLIMUS LEVEL 2019-07-07 10:03:00 Test Item Value Reference Range Interpretation Comments TACROLIMUS BLOOD (BEAKER) (test 3.5 ng/mL 10.0-20.0 L code = 657) [id number] 07:00:00 Test Item Value Reference Range Interpretation Comments PHOSPHORUS (BEAKER) (test code = 2.9 mg/dL 2.3-4.7 604) [id number] 07:00:00 Test Item Value Reference Range Interpretation Comments MAGNESIUM (BEAKER) (test code = 1.4 mg/dL 1.6-2.6 L 627) HEPATIC FUNCTION [id number] 07:00:00 Test Item Value Reference Range Interpretation [...] 6-55 347) CBC W/PLT COUNT & AUTO [id number] 07:00:00 Test Item Value Reference Range Interpretation [...] (BEAKER) (test code = 2801) BASIC METABOLIC [id number] 07:00:00 Test Item Value Reference Range Interpretation [...] APPLICABLE FOR DIALYSIS PATIEN TS. RESPIRATORY PANEL [id number] 17:34:00 Test Item Value Reference Range Interpretation [...] decisions. This sample was tested at the [facility] Molecular Diagnostics Laboratory using the The [employer] FilmArray Respiratory Panel. It is FDA cleared and has been verified and approved by the [facility] Molecular Diagnostics Laboratory for clinical use on nasopharyngeal swab specimens.The performance of the FilmArrayRP has not been established in individuals who received influenza vaccine. Recent administration of a nasal influenza vaccine may cause false positive results for Influenza A and/orInfluenza B.TACROLIMUS [id number] 09:50:00 Test Item Value Reference Range Interpretation Comments TACROLIMUS BLOOD (BEAKER) (test 3.6 ng/mL 10.0-20.0 L code = 657) BASIC METABOLIC [id number] 07:47:00 Test Item Value Reference Range Interpretation [...] S NOT APPLICABLE FOR DIALYSIS PATIEN TS. [id number] 07:39:00 Test Item Value Reference Range Interpretation Comments PHOSPHORUS (BEAKER) (test code = 2.6 mg/dL 2.3-4.7 604) [id number] 07:39:00 Test Item Value Reference Range Interpretation Comments MAGNESIUM (BEAKER) (test code = 1.4 mg/dL 1.6-2.6 L 627) HEPATIC FUNCTION [id number] 07:39:00 Test Item Value Reference Range Interpretation [...] 6-55 347) CBC W/PLT COUNT & AUTO [id number] 06:46:00 Test Item Value Reference Range Interpretation [...] PERCENT (BEAKER) (test code = 2801) PROTHROMBIN [id number] 02:37:00 Test Item Value Reference Range Interpretation [...] is 2.5-3.5 for patients wiht mechanical heart valves.[id number] 02:37:00 Test Item Value Reference Range Interpretation [...] for patients wiht mechanical heart valves.BASIC METABOLIC [id number] 02:23:00 Test Item Value Reference Range Interpretation [...] S NOT APPLICABLE FOR DIALYSIS PATIEN TS. [id number] 02:22:00 Test Item Value Reference Range Interpretation Comments PHOSPHORUS (BEAKER) (test code = 2.1 mg/dL 2.3-4.7 L 604) [id number] 02:22:00 Test Item Value Reference Range Interpretation Comments MAGNESIUM (BEAKER) (test code = 1.4 mg/dL 1.6-2.6 L 627) HEPATIC FUNCTION [id number] 02:22:00 Test Item Value Reference Range Interpretation [...] 29 U/L 6-55 347) RAD, CHEST, 2 [id number] 02:14:00Referring: Dr. Diane Fernando for exam:->pneumoniaFINAL REPORT [...] 07/06/2019 02:14:45 CBC W/PLT COUNT & AUTO [id number] 01:50:00 Test Item Value Reference Range Interpretation [...] PERCENT (BEAKER) (test code = 2801) TACROLIMUS [id number] 13:42:00 Test Item Value Reference Range Interpretation Comments TACROLIMUS BLOOD (BEAKER) (test 5.3 ng/mL 10.0-20.0 L code = 657) [id number] 12:03:00 Test Item Value Reference Range Interpretation Comments PHOSPHORUS (BEAKER) (test code = 2.9 mg/dL 2.3-4.7 604) [id number] 12:03:00 Test Item Value Reference Range Interpretation Comments MAGNESIUM (BEAKER) (test code = 1.7 mg/dL 1.6-2.6 627) COMPREHENSIVE METABOLIC [id number] 12:03:00 Test Item Value Reference Range Interpretation [...] = 635) CBC W/PLT COUNT & AUTO [id number] 11:41:00 Test Item Value Reference Range Interpretation [...] PERCENT (BEAKER) (test code = 2801) U/S, [id number] 12:23:00Referring: Dr. Diane Fernando for exam:->ABDOMINAL PAINReason [...] MDReport Verified Date/Time: 06/27/2019 12:23:23 Reading Location: [facility] C[facility] Transitional Reading Room BASI METABOLIC [id number] 10:54:00 Test Item Value Reference Range Interpretation [...] NOT APPLICABLE FOR DIALYSIS PATIEN TS. PROTHROMBIN [id number] 10:41:00 Test Item Value Reference Range Interpretation [...] mechanical heart valves.CBC W/PLT COUNT & AUTO [id number] 10:35:00 Test Item Value Reference Range Interpretation [...] PERCENT (BEAKER) (test code = 2801) TACROLIMUS [id number] 14:52:00 Test Item Value Reference Range Interpretation Comments TACROLIMUS BLOOD (BEAKER) (test 7.9 ng/mL 10.0-20.0 L code = 657) [id number] 14:27:00 Test Item Value Reference Range Interpretation Comments MAGNESIUM (BEAKER) (test code = 1.6 mg/dL 1.6-2.6 627) BASIC METABOLIC [id number] 14:27:00 Test Item Value Reference Range Interpretation [...] PATIEN TS. CBC W/PLT COUNT & AUTO [id number] 14:18:00 Test Item Value Reference Range Interpretation [...] (BEAKER) (test code = 2801) CMV PCR, [id number] 15:45:00 Test Item Value Reference Range Interpretation [...] and its performance characteristics determined by the [facility] Pathol ogy Department, Section of Molecular Pathology. [...] L code = 657) RAD, CHEST, 2 [id number] 11:35:00Referring: Dr. Diane Fernando for Exam:->s/p lung [...] MDReport Verified Date/Time: 05/19/2019 11:35:20 Reading Location: [facility] Radiology Reading Room COMPREHENSIVE METABOLIC PANEL 2019-05-19 [...] S NOT APPLICABLE FOR DIALYSIS PATIEN TS. [id number] 10:04:00 Test Item Value Reference Range Interpretation Comments PHOSPHORUS (BEAKER) (test code = 3.7 mg/dL 2.3-4.7 604) [id number] 10:04:00 Test Item Value Reference Range Interpretation Comments MAGNESIUM (BEAKER) (test code = 1.5 mg/dL 1.6-2.6 L 627) LACTATE DEHYDROGENASE (LDH)2019-05-19 10:04:00 Test Item Value Reference Range Interpretation Comments LACTATE DEHYDROGENASE (BEAKER) (test 186 U/L 125-220 code = 635) CBC W/PLT COUNT & AUTO [id number] 09:24:00 Test Item Value Reference Range Interpretation [...] (BEAKER) (test code = 2801) CMV PCR, [id number] 14:26:00 Test Item Value Reference Range Interpretation Comments CMV VIRAL LOAD - Negative or below the NEGATIVE (BEAKER) (test linear range of the code = 3218) assay (<375 copies/mL) Cytomegalovirus (CMV) infection can [...] and its performance characteristics determined by the [facility] Pathol ogy Department, Section of Molecular Pathology. It has not been cleared or approved by the U.S. Foodand Drug Administration (FDA), since FDA approval is not required for clinical use of the test. Validation was done as required by The Clinical Laboratory Improvement Amendments of 1988.MR, ABDOMEN, WITH 2019-05-13 15:52:00Referring: Dr. Diane Noriega MRCPWith MRCPLocation: For [place] Only->with MRCPFINAL REPORT TECHNIQUE: MRI of the [...] be reassessed on follow-upMRI. 4.Cholelithiasis. Signed: Georgi Mancillaeport Verified Date/Time: 05/13/2019 15:52:20 Reading Location: [address] TACROLIMUS [id number] 13:36:00 Test Item Value Reference Range Interpretation Comments TACROLIMUS BLOOD (BEAKER) (test 9.8 ng/mL 10.0-20.0 L code = 657) [id number] 13:00:00 Test Item Value Reference Range Interpretation Comments PHOSPHORUS (BEAKER) (test code = 3.2 mg/dL 2.3-4.7 604) [id number] 13:00:00 Test Item Value Reference Range Interpretation Comments MAGNESIUM (BEAKER) (test code = 1.6 mg/dL 1.6-2.6 627) COMPREHENSIVE METABOLIC [id number] 13:00:00 Test Item Value Reference Range Interpretation [...] PATIEN TS. CBC W/PLT COUNT & AUTO [id number] 12:49:00 Test Item Value Reference Range Interpretation [...] 3438) Received comment: User comments: Slide comments:TACROLIMUS [id number] 09:45:00 Test Item Value Reference Range Interpretation Comments TACROLIMUS BLOOD (BEAKER) (test 13.2 ng/mL 10.0-20.0 code = 657) ALPHA FETOPROTEIN (AFP), TUMOR [id number] 18:10:00 Test Item Value Reference Range Interpretation Comments ALPHA-FETOPROTEIN (BEAKER) (test 2.8 ng/mL <10.0 code = 1094) [id number] 17:45:00 Test Item Value Reference Range Interpretation Comments MAGNESIUM (BEAKER) (test code = 1.6 mg/dL 1.6-2.6 627) BASIC METABOLIC [id number] 17:45:00 Test Item Value Reference Range Interpretation [...] APPLICABLE FOR DIALYSIS PATIEN TS. HEPATIC FUNCTION [id number] 17:45:00 Test Item Value Reference Range Interpretation [...] = 32 U/L 6-55 347) BASIC METABOLIC [id number] 17:43:00 Test Item Value Reference Range Interpretation [...] APPLICABLE FOR DIALYSIS PATIEN TS. URINALYSIS W/ [id number] 17:35:00 Test Item Value Reference Range Interpretation [...] 514) SOURCE(BEAKER) (test code = 2795) PROTHROMBIN [id number] 17:26:00 Test Item Value Reference Range Interpretation [...] mechanical heart valves.CBC W/PLT COUNT & AUTO [id number] 17:19:00 Test Item Value Reference Range Interpretation [...] = 2801) CBC W/PLT COUNT & AUTO [id number] 17:18:00 Test Item Value Reference Range Interpretation [...] = 2801) BODY FLUID CULTURE + GRAM [id number] 14:13:00 Test Item Value Reference Range Interpretation Comments CULTURE (BEAKER) (test code No growth = 1095) GRAM STAIN RESULT (BEAKER) 1+ WBCs (test code = 1123) GRAM STAIN RESULT (BEAKER) No organisms seen (test code = 84276) LACTATE DEHYDROGENASE (LDH), BODY [id number] 19:19:00 Test Item Value Reference Range Interpretation [...] guided paracentesis Clinical History: Ascites. Sedation: None. Fiberglass Autobody Repairer: Aure Huerta PA-C Supervising Physician: Torey Burkett MD Product Safety Administrator: None. Estimated Blood Loss: < 1 mL. [...] local anesthesia wasachieved with lidocaine, a 5 Qatari one-step catheter was advanced into the peritoneal cavity under u ltrasound guidance. After completion of drainage, the catheter was removed. There was no evidence ofcomplication. This procedure was performed by PRIYANKA Ramírez under direct supervision of Torey Burkett M.D. Impression:Successful ultrasound guided paracentesis. Signed: Torey Burkett MDReport Verified Date/Time: 05/01/2019 18:38:36 Reading Location: [address] Ultrasound Reading Room U/S, [id number] 18:05:00Referring: Dr. Diane Olivas to be ordered:->Body Fluid Culture (w/Gram Stain, C\\T\\S)Labs to be ordered:->Glucose+LDH+ProteinReason for exam:->ABD SWELLINGShould this be performed at the bedside?->YesFINAL REPORT Ultrasound guided paracentesis, 05/01/2019. Clinical History: Ascites. Sedation: None. Fiberglass Autobody Repairer: Lola. Product Safety Administrator: None. Estimated Blood Loss: < 1 cc. [...] was achieved with 1% lidocaine, a 5 Qatari one-step catheter was advanced into the peritoneal cavity under ultrasound guidance. After completion of drainage, the catheter was removed. There was no evidence of complication. Patient Disposition: The patient was discharged from the ultrasound department after the paracentesis, in good condition. Impression:Successful ultrasound guided paracentesis. Signed: Rohit Ruth MDRepst. [facility] Verified Date/Time: 05/01/2019 18:05:44 Reading Location: [place] [address] Angio Body Reading Room BODY FLUID CELL COUNT WITH [id number] 17:23:00 Test Item Value Reference Range Interpretation [...] (BEAKER) (test code = 2873) ALBUMIN, BODY [id number] 17:17:00 Test Item Value Reference Range Interpretation Comments ALBUMIN FLUID (BEAKER) (test code = 0.5 gm/dL 501) Reference Range: No Normals Assay performance has not been validated for this type of specimen.PROTEIN, BODY [id number] 17:16:00 Test Item Value Reference Range Interpretation [...] 10.0-20.0 L code = 657) COMPREHENSIVE METABOLIC [id number] 15:01:00 Test Item Value Reference Range Interpretation [...] S NOT APPLICABLE FOR DIALYSIS PATIEN TS. [id number] 14:57:00 Test Item Value Reference Range Interpretation Comments MAGNESIUM (BEAKER) (test code = 1.8 mg/dL 1.6-2.6 627) [id number] 14:57:00 Test Item Value Reference Range Interpretation [...] mechanical heart valves.RAD, CHEST, 1 VIEW, NON [id number] 14:53:00Referring: Dr. Diane KaoReason for exam:->chest painShould this be performed at [...] MDReport Verified Date/Time: 05/01/2019 14:53:51 Reading Location: [facility] Reading Room 02:53 PMCBC W/PLT COUNT & AUTO [id number] 14:42:00 Test Item Value Reference Range Interpretation [...] = 2801) BODY FLUID CULTURE + GRAM [id number] 11:52:00 Test Item Value Reference Range Interpretation Comments CULTURE (BEAKER) (test No growth code = 1095) GRAM STAIN RESULT <1+ White blood cells (BEAKER) (test code = seen 1123) GRAM STAIN RESULT No organisms seen (BEAKER) (test code = 74627) BODY FLUID CELL COUNT WITH [id number] 18:29:00 Test Item Value Reference Range Interpretation [...] = 2873) CBC W/PLT COUNT & AUTO [id number] 14:08:00 Test Item Value Reference Range Interpretation [...] = 3438) Received comment: User comments: Slide comments:[id number] 12:58:00 Test Item Value Reference Range Interpretation Comments LIPASE (BEAKER) (test code = 749) 153 U/L 8-78 H BASIC METABOLIC [id number] 12:58:00 Test Item Value Reference Range Interpretation [...] APPLICABLE FOR DIALYSIS PATIEN TS. HEPATIC FUNCTION [id number] 12:58:00 Test Item Value Reference Range Interpretation [...] (test code = 37 U/L 6-55 347) [id number] 12:49:00 Test Item Value Reference Range Interpretation [...] 2.5-3.5 for patients wiht mechanical heart valves.BLOOD [id number] 12:00:00 Test Item Value Reference Range Interpretation Comments CULTURE (BEAKER) (test No growth in 5 days code = 1095) BLOOD [id number] 12:00:00 Test Item Value Reference Range Interpretation Comments CULTURE (BEAKER) (test No growth in 5 days code = 1095) STOOL CULTURE + SHIGA [id number] 15:15:00 Test Item Value Reference Range Interpretation Comments CULTURE (BEAKER) No Salmonella, Shigella (test code = 1095) or Campylobacter isolated TACROLIMUS [id number] 09:27:00 Test Item Value Reference Range Interpretation Comments TACROLIMUS BLOOD (BEAKER) (test 9.5 ng/mL 10.0-20.0 L code = 657) CBC W/PLT COUNT & AUTO [id number] 08:36:00 Test Item Value Reference Range Interpretation [...] = 3438) Received comment: User comments: Slide comments:[id number] 07:02:00 Test Item Value Reference Range Interpretation Comments PHOSPHORUS (BEAKER) (test code = 2.7 mg/dL 2.3-4.7 604) [id number] 07:02:00 Test Item Value Reference Range Interpretation Comments MAGNESIUM (BEAKER) (test code = 1.7 mg/dL 1.6-2.6 627) BASIC METABOLIC [id number] 07:02:00 Test Item Value Reference Range Interpretation [...] APPLICABLE FOR DIALYSIS PATIEN TS. HEPATIC FUNCTION [id number] 07:02:00 Test Item Value Reference Range Interpretation [...] code = 29 U/L 6-55 347) CALCIUM, [id number] 06:41:00 Test Item Value Reference Range Interpretation Comments CALCIUM IONIZED (BEAKER) (test 1.10 mmol/L 1.12-1.27 L code = 698) PH, BLOOD (BEAKER) (test code = 7.41 1810) SHIGA TOXIN [id number] 13:55:00 Test Item Value Reference Range Interpretation Comments SHIGA TOXIN 1 (BEAKER) (test Not detected Not detected code = 2177) SHIGA TOXIN 2 (BEAKER) (test Not detected Not detected code = 2179) CBC W/PLT COUNT & AUTO [id number] 13:00:00 Test Item Value Reference Range Interpretation [...] few = 481) Wbc differential done manuallyTACROLIMUS [id number] 10:40:00 Test Item Value Reference Range Interpretation Comments TACROLIMUS BLOOD (BEAKER) (test 3.0 ng/mL 10.0-20.0 L code = 657) STOOL PATH [id number] 10:16:00 Test Item Value Reference Range Interpretation Comments PATHOGEN EXAM CHARGED (BEAKER) (test Done code = 2381) CALCIUM, [id number] 07:43:00 Test Item Value Reference Range Interpretation Comments CALCIUM IONIZED (BEAKER) (test 1.14 mmol/L 1.12-1.27 code = 698) PH, BLOOD (BEAKER) (test code = 7.42 1810) [id number] 06:35:00 Test Item Value Reference Range Interpretation Comments PHOSPHORUS (BEAKER) (test code = 2.4 mg/dL 2.3-4.7 604) [id number] 06:35:00 Test Item Value Reference Range Interpretation Comments MAGNESIUM (BEAKER) (test code = 1.6 mg/dL 1.6-2.6 627) BASIC METABOLIC [id number] 06:35:00 Test Item Value Reference Range Interpretation [...] APPLICABLE FOR DIALYSIS PATIEN TS. HEPATIC FUNCTION [id number] 06:35:00 Test Item Value Reference Range Interpretation [...] = 30 U/L 6-55 347) RESPIRATORY PANEL [id number] 14:16:00 Test Item Value Reference Range Interpretation [...] decisions. This sample was tested at the [facility] Molecular Diagnostics Laboratory using the [employer] LabsArray Respiratory Panel. It is FDA cleared and has been verified and approved by the [facility] Molecular Diagnostics Laboratory for clinical use on nasopharyngeal swab specimens.The performance of the FilmArrayRP has not been established in individuals who received influenza vaccine. Recent administration of a nasal influenza vaccine may cause false positive results for Influenza A and/orInfluenza B.TACROLIMUS [id number] 11:08:00 Test Item Value Reference Range Interpretation Comments TACROLIMUS BLOOD (BEAKER) (test 2.8 ng/mL 10.0-20.0 L code = 657) C. DIFFICILE GDH [id number] 10:53:00 Test Item Value Reference Range Interpretation Comments CDT TOXIN (test code Negative Negative = 6444168637) CDT GDH ANTIGEN (test Negative Negative No ind ication of code = [id number]) Clostridi um difficile infection and n o colonization. Discontinue ent phyllis isolation and t herapy. Testing performed by [employer] Rapid Cassette Assay. For GDH, published sensitivity of the assay is 98.7% compared to cytotoxicity testing. For Toxin AB, published sensitivity is 87.8% and specificity 99.4% compared to cytotoxicity testing.Verification of kit performance was done by the [facility] MicrobiologyLab prior to clinical use.BASIC METABOLIC [id number] 10:21:00 Test Item Value Reference Range Interpretation [...] PATIEN TS. PERIPHERAL BLOOD SMEAR - PATHOLOGIST [id number] 09:58:00 Test Item Value Reference Range Interpretation Comments PERIPHERAL SMR REVIEW Rare atypical (BEAKER) (test code = lymphocytes, favore 2640) reactive. No circulating blasts. Clinical follow up recommended. [id number] Macario Walker, (BEAKER) (test code = M.D.(electronic 6407) signature) CBC W/PLT COUNT & AUTO [id number] 09:36:00 Test Item Value Reference Range Interpretation [...] 3438) Received comment: User comments: Slide comments:POCT-GLUCOSE [id number] 09:31:00 Test Item Value Reference Range Interpretation Comments POC-GLUCOSE METER 103 mg/dL 70-110 : TESTED A T [facility] 6720 (BEAKER) (test code = [place], 1538) [address]: Actuarial Intern/Techni demetrice ID = [id number] for BG SAUCEDO IMMUNOGLOBULIN G (IGG)2019-04-23 07:17:00 Test Item Value Reference Range Interpretation Comments IMMUNOGLOBULIN G (IGG) (BEAKER) 291 mg/dL 540-1,822 L (test code = 427) CALCIUM, [id number] 07:14:00 Test Item Value Reference Range Interpretation Comments CALCIUM IONIZED (BEAKER) (test 1.10 mmol/L 1.12-1.27 L code = 698) PH, BLOOD (BEAKER) (test code = 7.43 1810) [id number] 07:11:00 Test Item Value Reference Range Interpretation Comments CORTISOL, TOTAL (BEAKER) (test code 3.7 ug/dL 3.7-19.4 = 2755) BLOOD GAS, [id number] 07:09:00 Test Item Value Reference Range Interpretation [...] (BEAKER) (test code = 1819) 21.0 % [id number] 06:54:00 Test Item Value Reference Range Interpretation Comments PHOSPHORUS (BEAKER) (test code = 3.1 mg/dL 2.3-4.7 604) [id number] 06:54:00 Test Item Value Reference Range Interpretation Comments MAGNESIUM (BEAKER) (test code = 1.7 mg/dL 1.6-2.6 627) BASIC METABOLIC [id number] 06:54:00 Test Item Value Reference Range Interpretation [...] APPLICABLE FOR DIALYSIS PATIEN TS. HEPATIC FUNCTION [id number] 06:54:00 Test Item Value Reference Range Interpretation [...] = 28 U/L 6-55 347) VANCOMYCIN LEVEL, [id number] 06:48:00 Test Item Value Reference Range Interpretation Comments VANCOMYCIN RANDOM (BEAKER) (test 6.0 ug/mL code = 523) Reference Range: No NormalsLACTIC ACID, [id number] 06:42:00 Test Item Value Reference Range Interpretation Comments LACTATE BLOOD ARTERIAL (2) 2.1 mmol/L 0.5-2.2 (BEAKER) (test code = 2874) FECAL [id number] 01:59:00 Test Item Value Reference Range Interpretation Comments FECAL LEUKOCYTES No fecal leukocytes No fecal leukocytes (BEAKER) (test code = seen seen 992) BLOOD GAS, [id number] 23:40:00 Test Item Value Reference Range Interpretation [...] code = 1819) 21.0 % LEGIONELLA ANTIGEN, [id number] 19:38:00 Test Item Value Reference Range Interpretation Comments L. PNEUMOPHILA Negative - see Negative fo r L. SEROGP 1 UR AG comment pneumophila (BEAKER) (test code serogrou p 1 antigen, = 1156) suggesting no r ecent or current infe ction with this serog roup. Legionellosis c annot be ruled out si nce other serogroup s and species may cau se disease. STREP PNEUMONIAE [id number] 19:38:00 Test Item Value Reference Range Interpretation [...] the detection limit of the test.BASIC METABOLIC [id number] 19:14:00 Test Item Value Reference Range Interpretation [...] S NOT APPLICABLE FOR DIALYSIS PATIEN TS. [id number] 19:13:00 Test Item Value Reference Range Interpretation Comments HAPTOGLOBIN (BEAKER) (test code = 63 mg/dL 14-069 366) LACTIC ACID, [id number] 19:11:00 Test Item Value Reference Range Interpretation Comments LACTATE BLOOD VENOUS (2) (BEAKER) 2.0 mmol/L 0.5-2.2 (test code = 2872) LACTATE DEHYDROGENASE (LDH)2019-04-22 18:26:00 Test Item Value Reference Range Interpretation Comments LACTATE DEHYDROGENASE (BEAKER) (test 199 U/L 125-220 code = 635) U/S, ABDOMINAL, [id number] 16:07:00Referring: Dr. Diane Fernando for exam:->abnormal LFTs [...] Mancilla MDReport Verified Date/Time: 04/22/2019 16:07:26 Reading Location: [address] Radiology Reading Room CMV PCR, [id number] 15:18:00 Test Item Value Reference Range Interpretation [...] and its performance characteristics determined by the [facility] Pathol ogy Department, Section of Molecular Pathology. It has not been cleared or approved by the U.S. Foodand Drug Administration (FDA), since FDA approval is not required for clinical use of the test. Validation was done as required by The Clinical Laboratory Improvement Amendments of 1988.EBV VIRAL [id number] 15:07:00 Test Item Value Reference Range Interpretation [...] (2) real-time PCR amplification and detection with UFIH-0-cxbajtya primers and probes. A well-conserved region of the EBNA-1 gene is targeted, along with an internal control sequence used to confirm PCR amplification. Asymptomatic carriers and viral genetic variation, among other factors, can affect the accuracy of nucleic acidtesting; therefore, results should be interpreted in light of clinical data.This test was developed and its performance characteristics determined by the [facility] Pathology Department,Section of Molecular Pathology. It has [...] comments: Slide comments:CBC W/PLT COUNT & AUTO [id number] 14:00:00 Test Item Value Reference Range Interpretation [...] WBC 0-0 (test code = 413) TROPONIN [id number] 13:53:00 Test Item Value Reference Range Interpretation [...] acute neurological disease, and persistent tachyarrhythmia.BASIC METABOLIC [id number] 13:45:00 Test Item Value Reference Range Interpretation [...] APPLICABLE FOR DIALYSIS PATIEN TS. CHLORIDE, RANDOM [id number] 12:41:00 Test Item Value Reference Range Interpretation Comments CHLORIDE URINE (BEAKER) (test code = 45 meq/L 682) Reference Range: No NormalsCREATININE, RANDOM [id number] 12:41:00 Test Item Value Reference Range Interpretation Comments CREATININE URINE (BEAKER) (test 131.6 mg/dL code = 375) Reference Range: No NormalsPOTASSIUM, RANDOM [id number] 12:41:00 Test Item Value Reference Range Interpretation Comments POTASSIUM URINE (BEAKER) (test 68.5 meq/L code = 195) Reference Range: No NormalsSODIUM, RANDOM [id number] 12:41:00 Test Item Value Reference Range Interpretation Comments SODIUM URINE (BEAKER) (test code = 27 meq/L 243) Reference Range: No NormalsUREA NITROGEN, RANDOM [id number] 12:41:00 Test Item Value Reference Range Interpretation Comments UREA NITROGEN URINE (BEAKER) (test 732 mg/dL code = 538) Reference Range: No NormalsURINALYSIS W/ REFLEX URINE [id number] 11:59:00 Test Item Value Reference Range Interpretation [...] 1584) SOURCE(BEAKER) (test code = 2795) OSMOLALITY, [id number] 11:59:00 Test Item Value Reference Range Interpretation Comments OSMOLALITY URINE (BEAKER) (test 536 mOsm/kg 40-1,400 code = 614) SPECIFIC GRAVITY, [id number] 11:52:00 Test Item Value Reference Range Interpretation Comments SPECIFIC GRAVITY UA (BEAKER) (test code 1.024 1.001-1.035 = 468) TACROLIMUS [id number] 11:08:00 Test Item Value Reference Range Interpretation Comments TACROLIMUS BLOOD (BEAKER) (test 3.9 ng/mL 10.0-20.0 L code = 657) [id number] 09:00:00 Test Item Value Reference Range Interpretation Comments PROCALCITONIN (BEAKER) (test code 64.50 ng/mL <0.05 HH = 3036) SEPSIS RISK (ng/mL)Low: 0.05-0.50Intermediate: 0.51-2.00High: >=2.01RAPID INFLUENZA A&B [id number] 07:45:00 Test Item Value Reference Range Interpretation Comments RAPID INFLUENZA A AG (BEAKER) Negative Negative, Inconclusive (test code = 1622) RAPID INFLUENZA B AG (BEAKER) Negative Negative, Inconclusive (test code = 1623) B-TYPE NATRIURETIC FACTOR (BNP)2019-04-22 07:27:00 Test Item Value Reference Range Interpretation Comments B-TYPE NATRIURETIC PEPTIDE 1132 pg/mL 0-100 H (BEAKER) (test code = 700) TROPONIN [id number] 07:27:00 Test Item Value Reference Range Interpretation [...] acute neurological disease, and persistent tachyarrhythmia.BASIC METABOLIC [id number] 07:21:00 Test Item Value Reference Range Interpretation [...] S NOT APPLICABLE FOR DIALYSIS PATIEN TS. [id number] 07:20:00 Test Item Value Reference Range Interpretation Comments PHOSPHORUS (BEAKER) (test code = 4.7 mg/dL 2.3-4.7 604) [id number] 07:20:00 Test Item Value Reference Range Interpretation Comments MAGNESIUM (BEAKER) (test code = 1.5 mg/dL 1.6-2.6 L 627) HEPATIC FUNCTION [id number] 07:20:00 Test Item Value Reference Range Interpretation [...] (test code = 33 U/L 6-55 347) [id number] 07:13:00 Test Item Value Reference Range Interpretation [...] 2.5-3.5 for patients wiht mechanical heart valves.PROTHROMBIN [id number] 07:11:00 Test Item Value Reference Range Interpretation [...] 2.5-3.5 for patients wiht mechanical heart valves.CALCIUM, [id number] 06:59:00 Test Item Value Reference Range Interpretation Comments CALCIUM IONIZED (BEAKER) (test 1.10 mmol/L 1.12-1.27 L code = 698) PH, BLOOD (BEAKER) (test code = 7.32 1810) BLOOD GAS, [id number] 06:58:00 Test Item Value Reference Range Interpretation [...] 1819) 21.0 % RAD, ABDOMEN/KUB, 1 VIEW [id number] 06:48:00Referring: Dr. Diane Fernando for exam:->abdominal painFINAL REPORT CLINICAL HISTORY: Abdominal pain COMPARISON: 12/31/2017 FINDINGS: Two supine views of the abdomen are submitted. The abdominal bowel gas pattern is nonspecific but grossly unobstructed. There is no focus of gas dilated large or small bowel. There is splenomegaly. No abnormal calcification is noted. There is no acute bony abnormality. Signed: Karissa Romero MDRepst. [facility] Verified Date/Time: 04/22/2019 06:48:47 , CHEST, 1 VIEW, NON [id number] 06:46:00Referring: Dr. Diane Fernando for exam:->chest discomfortShould this be performed at the [facility]?->YesFINAL REPORT History: Chest discomfort. Comparison: 01/20/2019 Findings: [...] Romero MDReport Verified Date/Time: 04/22/2019 06:46:48 AND [id number] 12:39:00 Test Item Value Reference Range Interpretation [...] NOT APPLICABLE FOR DIALYSIS PATIEN TS. TISSUE [id number] 12:55:00Surgical Pathology Report Case: [id number] Authorizing Provider: Jordi Serrano, Collected: 02/20/2019 1622 Ordering Location: [facility] Endoscopy Received: 02/23/2019 0843 Services Pathologist: Gemma Samayoa MD Specimens: A) - Polyp, Colon - Cecum, cecum polyp B) - Large Intestine, Colon - Right/Ascending, random right colon biopsy R/O microscopic colitis C) - Polyp, Colon - Right/Ascending, ascending colon polyp x 3 D) - Large Intestine, Colon - Left/Descending, random left colon bi opsy R/O microscopic colitis A. COLON, CECUM POLYP, POLYPECTOMY- POLYPOID MUCOSAL FRAGMENTS WITHOUTADENOMATOUS OR HYPERPLASTIC CHANGE- FOCAL ACUTE COLITIS, MILDB. [...] (SEE COMMENT) Signing Pathologist Direct Phone Line: [phone] signed by Gemma Samayoa MD on 03/03/2019 at 12:55 PMDecreased to absent plasma cells are seen in the lamina propria consistent with history of common variable immun odeficiency. No features of microscopic colitis, active inflammation or parasites are seen.INTRADEPARTMENTAL CONSULTATION: - Sarah Siegel MD has seen specimen B and D and agrees with the diagnosis.99690q 4, 89332, 34380Gxvpcph diarrhea, polyp of cecum , H/O lung transplant in 12/2012, Common variable im munodeficiencyA. Cecum polyp. B. Random right colon biopsy, [...] fragments admixed with clotted blood ranging 0.2-0.5 cm , which are submitted in toto in C1.Part D. Labeled "large intestine, colon- left/descending" are multiple salvador soft tissue fragments ranging from 0.2-0.5 cm, which are submitted in toto in D1. CG/ewPerformed.The interpretation of this case included the use of immunohistochemistry or special stains.CTM950- no plasma cells highlighted in lamina propriaD CD138- no plasma cells highlighted in lamina propria , except in one fragmentControl Slides Examined: In-house known positive controls were evaluated along with the test tissue. These control slides run alongside of the patients sample show appropriatestaining. Internal positive and negative controls when available are evaluated Immunohistochemistry technical testing was performed at [facility], Pathology Laboratory where it was developed and its performance characteristics were determined. It has not been cleared or approved by the U.S. Food and Drug Administration. The FDA has determined that such clearance or approval is not necessary. The test is used for clinical purposes. It should not be regarded as investigational orfor research. This laboratory is certified under the Clinical Laboratory Improvement Amendments of 1988 (CLIA-88) as qualified to perform high complexity clinical laboratory testing.CT, CHEST, WITHOUT [id number] 16:06:00Referring: Dr. Diane Fernando for Exam:->s/p lung transplant, [...] the upper abdomen demonstrate a nodular, cirrhotic ap pearing liver and splenomegaly with the spleen measuring 13.7 cm in AP diameter. Cholelithiasis is seen. Trace ascites is noted. The tracheobronchial tree is clear with no endobronchial lesions. The pulmonary parenchyma demonstrates atelectasis or fibrosis in both lung bases. A 4 mm nodule is seen in the posterior aspect of the left lung apex, likely scarring. Stable minimal nodularity is seen in theright upper lobe, image 16. Bone windows demonstrate [...] MDReport Verified Date/Time: 01/20/2019 16:06:56 Reading Location: [facility] C013Y ME Body Reading Room CMV PCR, [id number] 13:51:00 Test Item Value Reference Range Interpretation [...] and its performance characteristics determined by the [facility] Pathol ogy Department, Section of Molecular Pathology. [...] 10.0-20.0 code = 657) RAD, CHEST, 2 [id number] 12:28:00Referring: Dr. Diane Eastman Reason for Exam:->s/p [...] MDReport Verified Date/Time: 01/20/2019 12:28:25 Reading Location: [facility] Diagnostic Imaging Reading Room - [facility] 1 .310.12 [facility] 2019-01-20 12:02:00 Test Item Value Reference Range Interpretation Comments PROSTATE SPECIFIC ANTIGEN (BEAKER) 0.3 ng/mL 0.0-4.0 (test code = 844) MALES onlyVITAMIN D, [id number] 12:02:00 Test Item Value Reference Range Interpretation Comments VITAMIN D 25-OH (BEAKER) (test 23.8 ng/mL 6.6-49.9 code = 2764) Effective 04/10/2017: Reference Range ChangeNew: 6.6-49.9 ng/mL Previous: 13.0- 47.8 ng/mLRecommendedVitamin D Target Range: 30.0-40.0 ng/mLMALES onlyHEMOGLOBIN [id number] 11:40:00 Test Item Value Reference Range Interpretation Comments HEMOGLOBIN A1C (BEAKER) (test code = 4.4 % 4.3-6.1 368) [id number] 10:45:00 Test Item Value Reference Range Interpretation Comments PHOSPHORUS (BEAKER) (test code = 3.5 mg/dL 2.3-4.7 604) [id number] 10:45:00 Test Item Value Reference Range Interpretation Comments MAGNESIUM (BEAKER) (test code = 1.5 mg/dL 1.6-2.6 L 627) COMPREHENSIVE METABOLIC [id number] 10:45:00 Test Item Value Reference Range Interpretation [...] NOT APPLICABLE FOR DIALYSIS PATIEN TS. LIPID [id number] 10:45:00 Test Item Value Reference Range Interpretation [...] = 635) CBC W/PLT COUNT & AUTO [id number] 09:48:00 Test Item Value Reference Range Interpretation [...] code = 2801) SPUTUM CULTURE + GRAM [id number] 23:12:00 Test Item Value Reference Range Interpretation Comments CULTURE (BEAKER) Oropharyngeal (test code = 1095) contamination, specimen rejected. Recollect requested. GRAM STAIN RESULT <1+ WBCs (BEAKER) (test code = 1123) GRAM STAIN RESULT 10-15 epithelial cells (BEAKER) (test code = 21023) GRAM STAIN RESULT <1+ gram negative rods (BEAKER) (test code = 52046) GRAM STAIN RESULT 3+ gram positive cocci in (BEAKER) (test code pairs and clusters = 454321) TACROLIMUS [id number] 11:06:00 Test Item Value Reference Range Interpretation Comments TACROLIMUS BLOOD (BEAKER) (test 9.7 ng/mL 10.0-20.0 L code = 657) [id number] 09:20:00 Test Item Value Reference Range Interpretation Comments MAGNESIUM (BEAKER) (test code = 1.7 mg/dL 1.6-2.6 627) COMPREHENSIVE METABOLIC [id number] 09:20:00 Test Item Value Reference Range Interpretation [...] PATIEN TS. CBC W/PLT COUNT & AUTO [id number] 09:01:00 Test Item Value Reference Range Interpretation [...] (BEAKER) (test code = 2801) CMV PCR, [id number] 15:10:00 Test Item Value Reference Range Interpretation [...] and its performance characteristics determined by the [facility] Pathol ogy Department, Section of Molecular Pathology. It has not been cleared or approved by the U.S. Foodand Drug Administration (FDA), since FDA approval is not required for clinical use of the test. Validation was done as required by The Clinical Laboratory Improvement Amendments of 1988.RESPIRATORY PANEL [facility] 2018-11-18 16:22:00 Test Item Value Reference Range [...] decisions. This sample was tested at the [facility] Molecular Diagnostics Laboratory using the [employer] Respiratory Panel. It is FDA cleared and has been verified and approved by the [facility] Molecular Diagnostics Laboratory for clinical use on nasopharyngeal swab specimens.The performance of the FilmArrayRP has not been established in individuals who received influenza vaccine. Recent administration of a nasal influenza vaccine may cause false positive results for Influenza A and/orInfluenza B.HEMOGLOBIN [id number] 12:52:00 Test Item Value Reference Range Interpretation Comments HEMOGLOBIN A1C (BEAKER) (test code = 4.9 % 4.3-6.1 368) TACROLIMUS [id number] 12:24:00 Test Item Value Reference Range Interpretation Comments TACROLIMUS BLOOD (BEAKER) (test 2.8 ng/mL 10.0-20.0 L code = 657) [id number] 11:47:00 Test Item Value Reference Range Interpretation Comments PHOSPHORUS (BEAKER) (test code = 3.2 mg/dL 2.3-4.7 604) [id number] 11:47:00 Test Item Value Reference Range Interpretation Comments MAGNESIUM (BEAKER) (test code = 1.6 mg/dL 1.6-2.6 627) COMPREHENSIVE METABOLIC [id number] 11:47:00 Test Item Value Reference Range Interpretation [...] NOT APPLICABLE FOR DIALYSIS PATIEN TS. LIPID [id number] 11:47:00 Test Item Value Reference Range Interpretation [...] = 635) CBC W/PLT COUNT & AUTO [id number] 11:19:00 Test Item Value Reference Range Interpretation [...] (test code = 2801) RAD, CHEST, 2 [id number] 10:04:00Reason for Exam:->s/p lung transplant FINAL REPORT [...] MDReport Verified Date/Time: 11/18/2018 10:04:14 Reading Location: [address] Radiology Reading Room [id number] 13:40:00 Test Item Value Reference Range Interpretation Comments BLOOD UREA NITROGEN (BEAKER) (test 22 mg/dL 7-21 H code = 354) [id number] 13:40:00 Test Item Value Reference Range Interpretation Comments CREATININE (BEAKER) 1.03 mg/dL 0.57-1.25 (test code = 358) EGFR (BEAKER) (test 73 mL/min/1.73 ESTIMA ABDULLAHI GFR IS code = 1092) sq m NOT ACCURATE CREATININE CLEARANCE IN PREDICTING GLOMERULAR FILTRATION RATE . ESTIMATED GFR I S NOT APPLICABLE FOR DIALYSIS PATIEN TS. GIARDIA [id number] 15:23:00 Test Item Value Reference Range Interpretation Comments GIARDIA ANTIGEN Not detected Not detected NOTE: Due t o (QUEST) (test code intermitt ent shedding, = 4044327) one negative sa mple does not necess arily rule out the pr esence of a parasitic infection. Performing Lab *[facility], [address] [place] [id number] Sumi Davila MD, PhDOVA AND PARASITE EXAMINATION [...] (test seen seen code = 248) U/S, [id number] 15:43:00Reason for Exam:->abdl distentionReason for Exam:->s/p lung [...] manner. After localanesthesia is achieved, a 5 Qatari catheter is advanced into the peritoneal cavity. Approximately 1300 cc of serosanguineous fluid is drained, without immediate complications. Fluid is sent for analysis. Patient Disposition: The patient is discharged from the ultrasound department after the paracentesis, in good condition. Impression: Successful and uncomplicated ultrasound guided paracentesis is performed. Signed: Judy Perry Verified Date/Time: 08/19/2018 15:43:52 Reading Location: [address] Ultrasound Reading Room RESPIRATORY PANEL [id number] 13:59:00 Test Item Value Reference Range Interpretation [...] decisions. This sample was tested at the [facility] Molecular Diagnostics Laboratory using the [employer] Film[employer] Respiratory Panel. It is FDA cleared and has been verified and approved by the [facility] Molecular Diagnostics Laboratory for clinical use on nasal swab specimens. It is not FDA-cleared for use on bronchial wash/lavage samples. However, for this sample type, validation was performed and test characteristics were determined and approved, by [facility] [employer] Diagnostics laboratory for clinical use under the Clinical Laboratory Improvement Amendments (CLIA) of 1988 requirements. Therefore, FDA clearance isnot required. This laboratory is CLIA-certified and [employer] (CAP)-accredited to perform high complexity testing.[facility] [id number] 13:46:00 Test Item Value Reference Range Interpretation Comments TACROLIMUS BLOOD (BEAKER) (test 5.5 ng/mL 10.0-20.0 L code = 657) PROTHROMBIN [id number] 13:05:00 Test Item Value Reference Range Interpretation Comments PROTIME (BEAKER) (test code = 14.6 seconds 11.7-14.7 759) INR (BEAKER) (test code = 370) 1.1 <=5.9 RECOMMENDED COUMADIN/WARFARIN INR THERAPY RANGESSTANDARD DOSE: 2.0 - 3.0 Includes: PROPHYLAXIS for venous thrombosis, systemic embolization; TREATMENT for venous thrombosis and/or pulmonary embolus.HIGH RISK: Target INR is 2.5-3.5 for patients with mechanical heart valves.RAPID STREP A [id number] 11:41:00 Test Item Value Reference Range Interpretation Comments STREP A ANTIGEN (BEAKER) (test code Negative Negative = 556) [id number] 11:10:00 Test Item Value Reference Range Interpretation Comments MAGNESIUM (BEAKER) (test code = 1.4 mg/dL 1.6-2.6 L 627) BASIC METABOLIC [id number] 11:10:00 Test Item Value Reference Range Interpretation [...] PATIEN TS. CBC W/PLT COUNT & AUTO [id number] 10:55:00 Test Item Value Reference Range Interpretation [...] (BEAKER) (test code = 2801) BUN AND [id number] 15:09:00 Test Item Value Reference Range Interpretation [...] DIALYSIS PATIEN TS. STOOL CULTURE + SHIGA [id number] 12:11:00 Test Item Value Reference Range Interpretation Comments CULTURE (BEAKER) No Salmonella, Shigella (test code = 1095) or Campylobacter isolated SHIGA TOXIN [id number] 16:28:00 Test Item Value Reference Range Interpretation Comments SHIGA TOXIN 1 (BEAKER) (test Not detected Not detected code = 2177) SHIGA TOXIN 2 (BEAKER) (test Not detected Not detected code = 2179) STOOL PATH [id number] 12:11:00 Test Item Value Reference Range Interpretation Comments PATHOGEN EXAM CHARGED (BEAKER) (test Done code = 2381) C. DIFFICILE GDH [id number] 16:18:00 Test Item Value Reference Range Interpretation Comments CDT TOXIN (test code Negative Negative = [id number]) CDT GDH ANTIGEN (test Negative Negative No ind ication of code = [id number]) Clostridi um difficile infection and n o colonization. Discontinue ent phyllis isolation and t herapy. Testing performed by [employer] Rapid Cassette Assay. For GDH, published sensitivity of the assay is 98.7% compared to cytotoxicity testing. For Toxin AB, published sensitivity is 87.8% and specificity 99.4% compared to cytotoxicity testing.Verification of kit performance was done by the [facility] MicrobiologyLab prior to clinical use.FECAL [id number] 14:50:00 Test Item Value Reference Range Interpretation Comments FECAL LEUKOCYTES No fecal leukocytes No fecal leukocytes (BEAKER) (test code = seen seen 992) CMV PCR, [id number] 14:34:00 Test Item Value Reference Range Interpretation [...] and its performance characteristics determined by the [facility] Pathol ogy Department, Section of Molecular Pathology. [...] 4.8 ng/mL 10.0-20.0 L code = 657) [id number] 08:47:00 Test Item Value Reference Range Interpretation Comments PHOSPHORUS (BEAKER) (test code = 2.1 mg/dL 2.3-4.7 L 604) [id number] 08:47:00 Test Item Value Reference Range Interpretation Comments MAGNESIUM (BEAKER) (test code = 1.7 mg/dL 1.6-2.6 627) COMPREHENSIVE METABOLIC [id number] 08:47:00 Test Item Value Reference Range Interpretation [...] 125-220 code = 635) RAD, CHEST, 2 [id number] 08:33:00Reason for Exam:->s/p lung transplant FINAL REPORT [...] Signed: Javed Paez MDReport Verified Date/Time: 08/05/2018 08:33:35Reading Location: [facility] Radiology Reading Room Electronically signed by: John CORONA 08/05/2018 08:33 AMCBC W/PLT COUNT & AUTO [id number] 08:23:00 Test Item Value Reference Range Interpretation [...] (test code = 2801) AFB CULTURE + [id number] 12:42:00 Test Item Value Reference Range Interpretation Comments CULTURE (BEAKER) (test No acid-fast bacilli code = 1095) isolated in 42 days AFB SMEAR (BEAKER) No acid fast bacilli (test code = 994) seen TACROLIMUS [id number] 11:26:00 Test Item Value Reference Range Interpretation Comments TACROLIMUS BLOOD (BEAKER) (test 5.6 ng/mL 10.0-20.0 L code = 657) CBC W/PLT COUNT & AUTO [id number] 08:07:00 Test Item Value Reference Range Interpretation [...] 0-1 PERCENT (BEAKER) (test code = 2801) [id number] 07:54:00 Test Item Value Reference Range Interpretation Comments MAGNESIUM (BEAKER) (test code = 1.7 mg/dL 1.6-2.6 627) BASIC METABOLIC [id number] 07:54:00 Test Item Value Reference Range Interpretation [...] FOR DIALYSIS PATIEN TS. FUNGUS CULTURE + [id number] 13:47:00 Test Item Value Reference Range Interpretation Comments CULTURE (BEAKER) A <1+ Jane (test code = 1095) amira sis FUNGUS SMEAR No fungi seen (BEAKER) (test code = 1406) TACROLIMUS [id number] 12:34:00 Test Item Value Reference Range Interpretation Comments TACROLIMUS BLOOD (BEAKER) (test 3.3 ng/mL 10.0-20.0 L code = 657) RAD, BONE DENSITY [id number] 12:09:00Reason for Exam:->halfway use of prednisoneReason for Exam:->s/p lung transplantFINAL [...] MDReport Verified Date/Time: 06/05/2018 12:09:02 Reading Location: [facility] Reading Room IMMUNOGLOBULIN A (IGA)2018-06-05 [...] < mg/dL 540-1,822 L code = 427) [id number] 11:15:00 Test Item Value Reference Range Interpretation Comments MAGNESIUM (BEAKER) (test code = 1.6 mg/dL 1.6-2.6 627) BASIC METABOLIC [id number] 11:15:00 Test Item Value Reference Range Interpretation [...] PATIEN TS. CBC W/PLT COUNT & AUTO [id number] 11:12:00 Test Item Value Reference Range Interpretation [...] code = 2801) SPUTUM CULTURE + GRAM [id number] 19:04:00 Test Item Value Reference Range Interpretation Comments CULTURE (BEAKER) 4+ Normal respiratory (test code = 1095) tre present GRAM STAIN RESULT 1+ WBCs (BEAKER) (test code = 1123) GRAM STAIN RESULT 0-5 epithelial cells (BEAKER) (test code = 09824) GRAM STAIN RESULT 1+ gram negative rods (BEAKER) (test code = 61426) GRAM STAIN RESULT 3+ gram positive rods (BEAKER) (test code = 095364) SPIN/CONCENTRATION [id number] 00:19:00 Test Item Value Reference Range Interpretation Comments CONCENTRATION CHARGED (BEAKER) (test Done code = 2657) CMV PCR, [id number] 14:39:00 Test Item Value Reference Range Interpretation [...] and its performance characteristics determined by the [facility] Pathol ogy Department, Section of Molecular Pathology. [...] ng/mL 10.0-20.0 code = 657) RESPIRATORY PANEL [id number] 12:51:00 Test Item Value Reference Range Interpretation [...] decisions. This sample was tested at the [facility] Molecular Diagnostics Laboratory using the [employer] Respiratory Panel. It is FDA cleared and has been verified and approved by the [facility] Molecular Diagnostics Laboratory for clinical use on nasal swab specimens. It is not FDA-cleared for use on bronchial wash/lavage samples. However, for this sample type, validation was performed and test characteristics were determined and approved, by [facility] Molecular Diagnostics laboratory for clinical use under the Clinical Laboratory Improvement Amendments (CLIA) of 1988 requirements. Therefore, FDA clearance isnot required. This laboratory is CLIA-certified and [employer] [place] [employer] (CAP)-accredited to perform high complexity testing.HEMOGLOBIN [id number] 10:37:00 Test Item Value Reference Range Interpretation Comments HEMOGLOBIN A1C (BEAKER) (test code = 4.5 % 4.3-6.1 368) CREATININE, RANDOM [id number] 09:55:00 Test Item Value Reference Range Interpretation Comments CREATININE URINE (BEAKER) (test 195.0 mg/dL code = 375) Reference Range: No NormalsPROTEIN, RANDOM [id number] 09:55:00 Test Item Value Reference Range Interpretation Comments PROTEIN, URINE (BEAKER) (test code = 18 mg/dL 0-14 H 1569) MICROALBUMIN, RANDOM [id number] 09:55:00 Test Item Value Reference Range Interpretation Comments MICROALBUMIN URINE (BEAKER) (test 1.5 mg/dL code = 1794) Reference Range: No NormalsRAD, CHEST, 2 [id number] 09:22:00Reason for Exam:->s/p lung transplantFINAL REPORT INDICATION: s/p lung transplant COMPARISON: February 05, 2018 TECHNIQUE: Frontal and lateral views of the chest. FINDINGS: Lungs and pleura: Clear lungs. Small posterior fusions bilaterally.Heart and mediastinum: Normal heart size. Stable surgical changes.Osseous structures: No acute abnormality.Additional findings: None. IMPRESSION: No acute intrathoracic abnormality. Signed: JR Rizzo Robert MDReport Verified Date/Time: 05/29/2018 09:22:59 Reading Location: [facility] Radiology Reading Room [id number] 09:10:00 Test Item Value Reference Range Interpretation Comments PROSTATE SPECIFIC ANTIGEN (BEAKER) 0.4 ng/mL 0.0-4.0 (test code = 844) MALES onlyHEPATITIS PANEL, [id number] 09:10:00 Test Item Value Reference Range Interpretation Comments HEPATITIS A IGM ANTIBODY (BEAKER) Nonreactive Nonreactive (test code = 498) HEPATITIS B CORE IGM ANTIBODY Nonreactive Nonreactive (BEAKER) (test code = 645) HEPATITIS C ANTIBODY (BEAKER) Nonreactive Nonreactive (test code = 367) HEPATITIS B SURFACE ANTIGEN (2) Nonreactive Nonreactive (BEAKER) (test code = 2585) MALES onlyVITAMIN D, [id number] 09:10:00 Test Item Value Reference Range Interpretation Comments VITAMIN D 25-OH (BEAKER) (test 26.8 ng/mL 6.6-49.9 code = 2764) Effective 04/10/2017: Reference Range ChangeNew: 6.6-49.9 ng/mL Previous: 13.0- 47.8 ng/mLRecommendedVitamin D Target Range: 30.0-40.0 ng/mLMALES onlyHIV-1 ANTIGEN WITH HIV-1/2 [id number] 09:10:00 Test Item Value Reference Range Interpretation Comments HIV-1 ANTIGEN WITH HIV 1\\T\\2 Nonreactive Nonreactive ANTIBODY (2) (BEAKER) (test code = 2586) MALES [id number] 08:48:00 Test Item Value Reference Range Interpretation Comments PHOSPHORUS (BEAKER) (test code = 3.2 mg/dL 2.3-4.7 604) COMPREHENSIVE METABOLIC [id number] 08:48:00 Test Item Value Reference Range Interpretation [...] NOT APPLICABLE FOR DIALYSIS PATIEN TS. LIPID [id number] 08:48:00 Test Item Value Reference Range Interpretation [...] = 635) CBC W/PLT COUNT & AUTO [id number] 08:30:00 Test Item Value Reference Range Interpretation [...] (test code = 2801) AFB CULTURE + [id number] 17:58:00 Test Item Value Reference Range Interpretation Comments CULTURE (BEAKER) (test No acid-fast bacilli code = 1095) isolated in 42 days AFB SMEAR (BEAKER) No acid fast bacilli (test code = 994) seen BODY FLUID CULTURE + GRAM [id number] 18:20:00 Test Item Value Reference Range Interpretation Comments CULTURE (BEAKER) (test code No growth = 1095) GRAM STAIN RESULT (BEAKER) <1+ WBCs (test code = 1123) GRAM STAIN RESULT (BEAKER) No organisms seen (test code = 78915) CBC W/PLT COUNT & AUTO [id number] 11:48:00 Test Item Value Reference Range Interpretation [...] 3438) Received comment: User comments: Slide comments:TACROLIMUS [id number] 09:58:00 Test Item Value Reference Range Interpretation Comments TACROLIMUS BLOOD (BEAKER) (test 5.3 ng/mL 10.0-20.0 L code = 657) POCT-GLUCOSE [id number] 08:33:00 Test Item Value Reference Range Interpretation Comments POC-GLUCOSE METER 100 mg/dL 70-110 TESTED AT [place] [address] (BEAKER) (test code = [place] 1538) [address] [id number] 07:13:00 Test Item Value Reference Range Interpretation Comments MAGNESIUM (BEAKER) (test code = 1.6 mg/dL 1.6-2.6 627) COMPREHENSIVE METABOLIC [id number] 07:13:00 Test Item Value Reference Range Interpretation [...] PATIEN TS. BODY FLUID CELL COUNT WITH [id number] 17:27:00 Test Item Value Reference Range Interpretation [...] Tube (test code = 2873) PROTEIN, BODY [id number] 17:03:00 Test Item Value Reference Range Interpretation Comments PROTEIN FLUID (BEAKER) (test code = 1.2 g/dL 579) Absence of reference range indicates that normals have not been defined.Assay performance has not been validated for this type of specimen.ascitesascites GLUCOSE, BODY [id number] 17:03:00 Test Item Value Reference Range Interpretation Comments GLUCOSE, BODY FLUID (BEAKER) (test 92 mg/dL code = 1528) Absence of reference range indicates that normals have not been defined.Assay performance has not been validated for this type of specimen.ascitesascites TACROLIMUS [id number] 15:07:00 Test Item Value Reference Range Interpretation Comments TACROLIMUS BLOOD (BEAKER) (test 7.7 ng/mL 10.0-20.0 L code = 657) VITAMIN B12 AND [id number] 14:40:00 Test Item Value Reference Range Interpretation Comments VITAMIN B12 (BEAKER) (test code = 714 pg/mL 213-816 774) FOLATE (BEAKER) (test code = 362) 13.4 ng/mL >=7.0 IMMUNOGLOBULIN G (IGG)2018-02-05 14:19:00 Test Item Value Reference Range Interpretation Comments IMMUNOGLOBULIN G (IGG) (BEAKER) 133 mg/dL 540-1822 L (test code = 427) POCT-GLUCOSE [id number] 13:31:00 Test Item Value Reference Range Interpretation Comments POC-GLUCOSE METER 149 mg/dL 70-110 H TESTED AT [facility] 6720 (BEAKER) (test code = [place] 1538) [address] U/S, [id number] 11:08:00Reason for exam:->ABDOMINAL PAINFINAL REPORT HISTORY : [...] skin and deep soft tissues. A 5 Qatari multi-sidehole catheter was inserted and removed from the peritoneal space and approximately 3.1 liters of clear yellow fluid was aspirated from the abdomen. Specimens were collected for the lab. There were no immediate complications. Impression: Successful ultrasound guided paracentesis with aspiration of 3.1 liters of fluid. Signed: Javed Paez MDReport Verified Date/Time: 02/05/2018 11:08:13 Reading Location: [address] Ultrasound Reading Room CBC W/PLT COUNT & AUTO [id number] 09:16:00 Test Item Value Reference Range Interpretation [...] PERCENT (BEAKER) (test code = 2801) TROPONIN [id number] 09:11:00 Test Item Value Reference Range Interpretation [...] pg/mL 0-100 H (test code = 700) [id number] 09:04:00 Test Item Value Reference Range Interpretation Comments MAGNESIUM (BEAKER) (test code = 1.7 mg/dL 1.6-2.6 627) BASIC METABOLIC [id number] 09:04:00 Test Item Value Reference Range Interpretation [...] APPLICABLE FOR DIALYSIS PATIEN TS. HEPATIC FUNCTION [id number] 09:04:00 Test Item Value Reference Range Interpretation [...] (test code = 38 U/L 6-55 347) [id number] 09:04:00 Test Item Value Reference Range Interpretation Comments AMYLASE (BEAKER) (test code = 349) 79 U/L 25-125 [id number] 09:04:00 Test Item Value Reference Range Interpretation Comments LIPASE (BEAKER) (test code = 749) 36 U/L 8-78 [id number] 08:54:00 Test Item Value Reference Range Interpretation [...] mechanical heart valves.RAD, CHEST, 1 VIEW, NON [id number] 07:45:00Reason for exam:->chest painFINAL REPORT Chest one view AP 02/05/2018 7:45 AM CLINICAL INDICATION: chest painCOMPARISON: 01/13/2018 IMPRESSION: There are trace bilateral pleural effusions with adjacent basilar atelectasis. Cardiomediastinal contours are within normal limits. The central pulmonary vasculature is not engorged. Sternotomy wires remain midline. Signed: Bryce Craven Verified Date/Time:02/05/2018 07:45:26 Reading Location: [address] Neuro Reading Room FUNGUS CULTURE + [id number] 12:31:00 Test Item Value Reference Range Interpretation Comments CULTURE (BEAKER) (test No fungus isolated in code = 1095) 28 days FUNGUS SMEAR (BEAKER) No fungi seen (test code = 1406) VIRUS [id number] 12:15:00 Test Item Value Reference Range Interpretation Comments CULTURE (BEAKER) (test code No virus isolated = 1095) CMV PCR, [id number] 14:49:00 Test Item Value Reference Range Interpretation [...] and its performance characteristics determined by the [facility] Pathol ogy Department, Section of Molecular Pathology. [...] ng/mL 10.0-20.0 L code = 657) POCT-GLUCOSE [id number] 11:51:00 Test Item Value Reference Range Interpretation Comments POC-GLUCOSE METER 121 mg/dL 70-110 H TESTED AT [facility] 6720 ([facility]) (test code = PARESH Garcia [facility] 1538) [address] RAD, CHEST, 1 VIEW, NON [id number] 08:39:00Reason for exam:->Follow-up respiratory failureShould this be performed at the bedside?->YesFINAL REPORT Chest one view compared to January 07, 2018 Discussion: Moderately improved bilateral airspace opacities. Right PICC line in place. No gross effusion or pneumothorax. Signed: Denilson Callejas MDReport Verified Date/Time: 01/13/2018 08:39:15 Reading Location: [facility] Radiology Reading Room TIC FUNCTION [id number] 07:13:00 Test Item Value Reference Range Interpretation [...] = 55 U/L 6-55 347) BASIC METABOLIC [id number] 07:13:00 Test Item Value Reference Range Interpretation [...] S NOT APPLICABLE FOR DIALYSIS PATIEN TS. [id number] 06:52:00 Test Item Value Reference Range Interpretation [...] mechanical heart valves.CBC W/PLT COUNT & AUTO [id number] 06:45:00 Test Item Value Reference Range Interpretation [...] PERCENT (BEAKER) (test code = 2801) POCT-GLUCOSE [id number] 22:11:00 Test Item Value Reference Range Interpretation Comments POC-GLUCOSE METER 165 mg/dL 70-110 H TESTED AT [facility] 6720 ([facility]) (test code = PARESH Jose [place] 1538) [address] C. DIFFICILE GDH [id number] 16:06:00 Test Item Value Reference Range Interpretation Comments CDT TOXIN (test code Negative Negative = [id number]) CDT GDH ANTIGEN (test Negative Negative No ind ication of code = [id number]) Clostridi um difficile infection and n o colonization. Discontinue ent phyllis isolation and t herapy. Testing performed by Alere Rapid Cassette Assay. For GDH, published sensitivity of the assay is 98.7% compared to cytotoxicity testing. For Toxin AB, published sensitivity is 87.8% and specificity 99.4% compared to cytotoxicity testing.Verification of kit performance was done by the [facility] MicrobiologyLab prior to clinical use.TACROLIMUS [id number] 10:30:00 Test Item Value Reference Range Interpretation Comments TACROLIMUS BLOOD ([facility]) (test 2.7 ng/mL 10.0-20.0 L code = 657) [id number] 07:37:00 Test Item Value Reference Range Interpretation Comments PHOSPHORUS ([facility]) (test code = 4.1 mg/dL 2.3-4.7 604) BASIC METABOLIC [id number] 07:37:00 Test Item Value Reference Range Interpretation [...] NOT APPLICABLE FOR DIALYSIS PATIEN TS. POCT-GLUCOSE [id number] 07:30:00 Test Item Value Reference Range Interpretation Comments POC-GLUCOSE METER 103 mg/dL 70-110 TESTED AT [facility] 6720 (BEAKER) (test code = JACQUELINEYULISA [place] 2380) [address] CBC W/PLT COUNT & AUTO [id number] 07:16:00 Test Item Value Reference Range Interpretation [...] PERCENT (BEAKER) (test code = 2801) POCT-GLUCOSE [id number] 21:04:00 Test Item Value Reference Range Interpretation Comments POC-GLUCOSE METER 161 mg/dL 70-110 H TESTED AT [facility] 6720 (BEAKER) (test code = JACQUELINEYULISA [place] 1538) [address] TACROLIMUS [id number] 10:37:00 Test Item Value Reference Range Interpretation Comments TACROLIMUS BLOOD (BEAKER) (test 3.4 ng/mL 10.0-20.0 L code = 657) [id number] 07:21:00 Test Item Value Reference Range Interpretation Comments PHOSPHORUS (BEAKER) (test code = 5.3 mg/dL 2.3-4.7 H 604) BASIC METABOLIC [id number] 07:21:00 Test Item Value Reference Range Interpretation [...] PATIEN TS. CBC W/PLT COUNT & AUTO [id number] 07:03:00 Test Item Value Reference Range Interpretation [...] PERCENT (BEAKER) (test code = 2801) POCT-GLUCOSE [id number] 17:24:00 Test Item Value Reference Range Interpretation Comments POC-GLUCOSE METER 178 mg/dL 70-110 H TESTED AT [place] [address] ([facility]) (test code = [facility] 1538) [address] TACROLIMUS [id number] 12:24:00 Test Item Value Reference Range Interpretation Comments TACROLIMUS BLOOD (BEAKER) (test 4.3 ng/mL 10.0-20.0 L code = 657) POCT-GLUCOSE [id number] 09:17:00 Test Item Value Reference Range Interpretation Comments POC-GLUCOSE METER 162 mg/dL 70-110 H TESTED AT [place] [address] ([facility]) (test code = [facility] Jose [facility] 1538) [address] CBC W/PLT COUNT & AUTO [id number] 07:36:00 Test Item Value Reference Range Interpretation [...] (BEAKER) (test code = 2801) BASIC METABOLIC [id number] 06:41:00 Test Item Value Reference Range Interpretation [...] S NOT APPLICABLE FOR DIALYSIS PATIIRIS TS. [id number] 06:39:00 Test Item Value Reference Range Interpretation Comments PHOSPHORUS (BEAKER) (test code = 6.1 mg/dL 2.3-4.7 H 604) LEGIONELLA [id number] 04:55:00 Test Item Value Reference Range Interpretation Comments CULTURE (BEAKER) No Legionella species (test code = 1095) isolated POCT-GLUCOSE [id number] 21:37:00 Test Item Value Reference Range Interpretation Comments POC-GLUCOSE METER 174 mg/dL 70-110 H TESTED AT [place] [address] ([facility]) (test code = PARESH [place] 1538) [address] POCT-GLUCOSE [id number] 18:18:00 Test Item Value Reference Range Interpretation Comments POC-GLUCOSE METER 230 mg/dL 70-110 H TESTED AT [place] [address] ([facility]) (test code = PARESH [place] 1538) [address] POCT-GLUCOSE [id number] 13:15:00 Test Item Value Reference Range Interpretation Comments POC-GLUCOSE METER 104 mg/dL 70-110 TESTED AT [place] [address] ([facility]) (test code = PARESH [place] 1538) [address] TACROLIMUS [id number] 11:40:00 Test Item Value Reference Range Interpretation Comments TACROLIMUS BLOOD (BEAKER) (test 4.3 ng/mL 10.0-20.0 L code = 657) POCT-GLUCOSE [id number] 09:28:00 Test Item Value Reference Range Interpretation Comments POC-GLUCOSE METER 206 mg/dL 70-110 H TESTED AT [facility] 6720 (BEAKER) (test code = PARESH [place] 1538) [address] BASIC METABOLIC [id number] 07:44:00 Test Item Value Reference Range Interpretation [...] PATIEN TS. CBC W/PLT COUNT & AUTO [id number] 06:46:00 Test Item Value Reference Range Interpretation [...] PERCENT (BEAKER) (test code = 2801) POCT-GLUCOSE [id number] 18:11:00 Test Item Value Reference Range Interpretation Comments POC-GLUCOSE METER 214 mg/dL 70-110 H TESTED AT [place] [address] ([facility]) (test code = [facility] Garcia [facility] 1538) [address] POCT-GLUCOSE [id number] 12:38:00 Test Item Value Reference Range Interpretation Comments POC-GLUCOSE METER 173 mg/dL 70-110 H TESTED AT [facility] 6720 ([facility]) (test code = PARESH Garcia [facility] 1538) [address] TACROLIMUS [id number] 10:03:00 Test Item Value Reference Range Interpretation Comments TACROLIMUS BLOOD (BEAKER) (test 6.2 ng/mL 10.0-20.0 L code = 657) CBC W/PLT COUNT & AUTO [id number] 07:36:00 Test Item Value Reference Range Interpretation [...] Received comment: User comments: Slide comments:HEPATIC FUNCTION [id number] 06:16:00 Test Item Value Reference Range Interpretation [...] 84 U/L 6-55 H 347) BASIC METABOLIC [id number] 06:16:00 Test Item Value Reference Range Interpretation [...] 358) GLUCOSE RANDOM 111 mg/dL 70-105 H (AKER) (test code = 652) CALCIUM (BEAKER) 8.2 mg/dL 8.4-10.2 L (test code = 697) [facility] (test 24 mL/min/1.73 ESTIMA ABDULLAHI GFR IS code = 1092) sq m NOT ACCURATE CREATININE CLEARANCE IN PREDICTING GLOMERULAR FILTRATION RATE . ESTIMATED GFR I S NOT APPLICABLE FOR DIALYSIS PATIEN TS. POCT-GLUCOSE [id number] 00:25:00 Test Item Value Reference Range Interpretation Comments POC-GLUCOSE METER 149 mg/dL 70-110 H TESTED AT [place] [address] ([facility]) (test code = [facility] 1538) [address] POCT-GLUCOSE [id number] 18:42:00 Test Item Value Reference Range Interpretation Comments POC-GLUCOSE METER 204 mg/dL 70-110 H TESTED AT [place] [address] ([facility]) (test code = [facility] 1538) [address] POCT-GLUCOSE [id number] 11:49:00 Test Item Value Reference Range Interpretation Comments POC-GLUCOSE METER 104 mg/dL 70-110 TESTED AT [place] [address] ([facility]) (test code = [facility] 1538) [address] TACROLIMUS [id number] 09:02:00 Test Item Value Reference Range Interpretation Comments TACROLIMUS BLOOD ([facility]) (test 7.4 ng/mL 10.0-20.0 L code = 657) RAD, CHEST, 1 VIEW, NON [id number] 08:16:00Reason for exam:->respiratory failureShould this be performed at the bedside?->YesFINAL REPORT Chest one view compared to January 06 Discussion: Bilateral airspace pu lmonary opacities are similar. Lateral lines in place lower SVC level. No gross effusion or pneumothorax. Signed: Denilson Callejas MDReport Verified Date/Time: 01/07/2018 08:16:36 Reading Location: [facility] Radiology Reading Room BASIC METABOLIC [id number] 05:23:00 Test Item Value Reference Range Interpretation [...] PATIEN TS. CBC W/PLT COUNT & AUTO [id number] 05:21:00 Test Item Value Reference Range Interpretation [...] (BEAKER) (test code = 2801) HEPATIC FUNCTION [id number] 05:21:00 Test Item Value Reference Range Interpretation [...] 40-150 H code = 346) AST (SGOT) ([facility]) (test code = 64 U/L 5-34 H 353) ALT (SGPT) ([facility]) (test code = 91 U/L 6-55 H 347) POCT-GLUCOSE [id number] 23:36:00 Test Item Value Reference Range Interpretation Comments POC-GLUCOSE METER 86 mg/dL 70-110 TESTED AT [facility] 6720 ([facility]) (test code = PARESH Garcia [facility] [address] 1538) POCT-GLUCOSE [id number] 22:44:00 Test Item Value Reference Range Interpretation Comments POC-GLUCOSE METER 138 mg/dL 70-110 H TESTED AT [facility] 6720 ([facility]) (test code = PARESH Garcia [facility] 1538) [address] HEPATOBILIARY [id number] 16:02:00Per REPORT PROCEDURE: HEPATOBILIARY SCAN CPT CODE: 83321 INDICATION: Right upper quadrant pain, fever, leukocytosis [...] Aiken Verified Date/Time: 01/06/2018 16:02:34 Reading Location: [address] Reading Room TACROLIMUS [id number] 10:39:00 Test Item Value Reference Range Interpretation Comments TACROLIMUS BLOOD ([facility]) (test 9.1 ng/mL 10.0-20.0 L code = 657) RAD, CHEST, 1 VIEW, NON [id number] 03:58:00Reason for exam:->respiratory failureShould this be performed [...] interval change. Signed: Osiris Reagan MDReport Verified Date/Time:01/06/2018 03:58:03 Reading Location: [address] Reading Room CBC W/PLT COUNT & AUTO [id number] 03:53:00 Test Item Value Reference Range Interpretation [...] (BEAKER) (test code = 2801) BASIC METABOLIC [id number] 03:51:00 Test Item Value Reference Range Interpretation [...] S NOT APPLICABLE FOR DIALYSIS PATIEN TS. [id number] 03:51:00 Test Item Value Reference Range Interpretation Comments MAGNESIUM (BEAKER) (test code = 2.1 mg/dL 1.6-2.6 627) [id number] 03:51:00 Test Item Value Reference Range Interpretation Comments PHOSPHORUS (BEAKER) (test code = 3.9 mg/dL 2.3-4.7 604) POCT-GLUCOSE [id number] 00:02:00 Test Item Value Reference Range Interpretation Comments POC-GLUCOSE METER 110 mg/dL 70-110 TESTED AT [facility] 6720 (BEAKER) (test code = JACQUELINEPR Jose [place] 1538) [address] BASIC METABOLIC [id number] 18:14:00 Test Item Value Reference Range Interpretation [...] NOT APPLICABLE FOR DIALYSIS PATIEN TS. POCT-GLUCOSE [id number] 17:56:00 Test Item Value Reference Range Interpretation Comments POC-GLUCOSE METER 143 mg/dL 70-110 H TESTED AT [facility] 6720 (BEAKER) (test code = [facility] [place] 1538) [address] [id number] 16:39:00 Test Item Value Reference Range Interpretation Comments POTASSIUM (BEAKER) (test code = 4.7 meq/L 3.5-5.1 379) CALCIUM, [id number] 16:33:00 Test Item Value Reference Range Interpretation Comments CALCIUM IONIZED (BEAKER) (test 1.11 mmol/L 1.12-1.27 L code = 698) PH, BLOOD (BEAKER) (test code = 7.53 1810) [id number] 12:31:00 Test Item Value Reference Range Interpretation Comments POTASSIUM (BEAKER) (test code = 4.2 meq/L 3.5-5.1 379) POCT-GLUCOSE [id number] 12:06:00 Test Item Value Reference Range Interpretation Comments POC-GLUCOSE METER 137 mg/dL 70-110 H TESTED AT [facility] 6720 (BEAKER) (test code = PARESH [place] 1538) [address] [id number] 10:53:00 Test Item Value Reference Range Interpretation Comments AMYLASE (BEAKER) (test code = 349) 53 U/L 25-125 Specimen slightly [id number] 10:53:00 Test Item Value Reference Range Interpretation Comments LIPASE (BEAKER) (test code = 749) 34 U/L 8-78 Specimen slightly ictericTACROLIMUS [id number] 10:02:00 Test Item Value Reference Range Interpretation Comments TACROLIMUS BLOOD (BEAKER) (test 8.9 ng/mL 10.0-20.0 L code = 657) [id number] 08:58:00 Test Item Value Reference Range Interpretation Comments PHOSPHORUS (BEAKER) (test code = 2.5 mg/dL 2.3-4.7 604) [id number] 08:58:00 Test Item Value Reference Range Interpretation Comments MAGNESIUM (BEAKER) (test code = 1.9 mg/dL 1.6-2.6 627) BASIC METABOLIC [id number] 08:58:00 Test Item Value Reference Range Interpretation [...] NOT APPLICABLE FOR DIALYSIS PATIEN TS. CALCIUM, [id number] 08:38:00 Test Item Value Reference Range Interpretation Comments CALCIUM IONIZED (BEAKER) (test 1.07 mmol/L 1.12-1.27 L code = 698) PH, BLOOD (BEAKER) (test code = 7.51 1810) RAD, CHEST, 1 VIEW, NON [id number] 06:36:00Reason for exam:->respiratory failureShould this be performed [...] effusions. There is no pneumothorax. Signed: David Yeeeport Verified Date/Time: 01/05/2018 06:36:45 Reading Location: [address] Transitional Reading Room BASIC METABOLIC [id number] 06:33:00 Test Item Value Reference Range Interpretation [...] DIALYSIS PATIEN TS. Specimen slightly ictericHEPATIC FUNCTION [id number] 06:33:00 Test Item Value Reference Range Interpretation [...] Specimen slightly ictericCBC W/PLT COUNT & AUTO [id number] 06:07:00 Test Item Value Reference Range Interpretation [...] H PERCENT (BEAKER) (test code = 2801) [id number] 00:54:00 Test Item Value Reference Range Interpretation Comments POTASSIUM (BEAKER) (test code = 4.0 meq/L 3.5-5.1 379) CALCIUM, [id number] 00:39:00 Test Item Value Reference Range Interpretation Comments CALCIUM IONIZED (BEAKER) (test 1.09 mmol/L 1.12-1.27 L code = 698) PH, BLOOD (BEAKER) (test code = 7.49 1810) POCT-GLUCOSE [id number] 00:12:00 Test Item Value Reference Range Interpretation Comments POC-GLUCOSE METER 96 mg/dL 70-110 TESTED AT [facility] 6720 (BEAKER) (test code = [place] [address] 1538) [id number] 20:37:00 Test Item Value Reference Range Interpretation Comments POTASSIUM (BEAKER) (test code = 4.3 meq/L 3.5-5.1 379) [id number] 20:37:00 Test Item Value Reference Range Interpretation Comments MAGNESIUM (BEAKER) (test code = 2.0 mg/dL 1.6-2.6 627) [id number] 20:37:00 Test Item Value Reference Range Interpretation Comments PHOSPHORUS (BEAKER) (test code = 2.1 mg/dL 2.3-4.7 L 604) [id number] 17:29:00 Test Item Value Reference Range Interpretation Comments POTASSIUM (BEAKER) (test code = 4.6 meq/L 3.5-5.1 379) BASIC METABOLIC [id number] 17:29:00 Test Item Value Reference Range Interpretation [...] FOR DIALYSIS PATIEN TS. Specimen slightly ictericCALCIUM, [id number] 17:06:00 Test Item Value Reference Range Interpretation Comments CALCIUM IONIZED (BEAKER) (test 1.09 mmol/L 1.12-1.27 L code = 698) PH, BLOOD (BEAKER) (test code = 7.49 1810) TACROLIMUS [id number] 14:39:00 Test Item Value Reference Range Interpretation Comments TACROLIMUS BLOOD (BEAKER) (test 9.5 ng/mL 10.0-20.0 L code = 657) [id number] 13:49:00 Test Item Value Reference Range Interpretation Comments POTASSIUM (BEAKER) (test code = 4.4 meq/L 3.5-5.1 379) POCT-GLUCOSE [id number] 12:21:00 Test Item Value Reference Range Interpretation Comments POC-GLUCOSE METER 182 mg/dL 70-110 H TESTED AT [facility] 6720 (BEAKER) (test code = PARESH [place] 1538) [address] [id number] 10:13:00 Test Item Value Reference Range Interpretation Comments MAGNESIUM (BEAKER) (test code = 2.3 mg/dL 1.6-2.6 627) BASIC METABOLIC [id number] 10:13:00 Test Item Value Reference Range Interpretation [...] Specimen slightly ictericRAD, CHEST, 1 VIEW, NON [id number] 09:57:00Reason for exam:->respiratory failureShould this be performed [...] pneumonia unchanged from prior study. Signed: Ken Harperepjessica Verified Date/Time: 01/04/2018 09:57:17 Reading Location: [facility] C013Y CT Body Reading Room CALCIUM, [id number] 09:33:00 Test Item Value Reference Range Interpretation Comments CALCIUM IONIZED (BEAKER) (test 1.12 mmol/L 1.12-1.27 code = 698) PH, BLOOD (BEAKER) (test code = 7.45 1810) Check serum Ionized Calcium level after 4 hours after IV Calcium replacement. [id number] 06:16:00 Test Item Value Reference Range Interpretation Comments PHOSPHORUS (BEAKER) (test code = 3.2 mg/dL 2.3-4.7 604) [id number] 06:16:00 Test Item Value Reference Range Interpretation Comments MAGNESIUM (BEAKER) (test code = 1.9 mg/dL 1.6-2.6 627) BASIC METABOLIC [id number] 06:16:00 Test Item Value Reference Range Interpretation [...] Specimen slightly ictericCBC W/PLT COUNT & AUTO [id number] 05:51:00 Test Item Value Reference Range Interpretation [...] (BEAKER) (test code = 2801) BLOOD GAS, [id number] 05:27:00 Test Item Value Reference Range Interpretation [...] (test code = 1819) 40.0 % CALCIUM, [id number] 05:27:00 Test Item Value Reference Range Interpretation Comments CALCIUM IONIZED (BEAKER) (test 1.14 mmol/L 1.12-1.27 code = 698) PH, BLOOD (BEAKER) (test code = 7.42 1810) [id number] 00:40:00 Test Item Value Reference Range Interpretation Comments POTASSIUM (BEAKER) (test code = 4.2 meq/L 3.5-5.1 379) CALCIUM, [id number] 00:26:00 Test Item Value Reference Range Interpretation Comments CALCIUM IONIZED (BEAKER) (test 1.15 mmol/L 1.12-1.27 code = 698) PH, BLOOD (BEAKER) (test code = 7.42 1810) POCT-GLUCOSE [id number] 00:09:00 Test Item Value Reference Range Interpretation Comments POC-GLUCOSE METER 224 mg/dL 70-110 H TESTED AT [facility] 6720 (BEAKER) (test code = PARESH [place] 1538) [address] [id number] 21:19:00 Test Item Value Reference Range Interpretation Comments POTASSIUM (BEAKER) (test code = 4.6 meq/L 3.5-5.1 379) [id number] 21:19:00 Test Item Value Reference Range Interpretation Comments MAGNESIUM (BEAKER) (test code = 1.9 mg/dL 1.6-2.6 627) [id number] 21:19:00 Test Item Value Reference Range Interpretation Comments PHOSPHORUS (BEAKER) (test code = 2.7 mg/dL 2.3-4.7 604) BASIC METABOLIC [id number] 19:10:00 Test Item Value Reference Range Interpretation [...] NOT APPLICABLE FOR DIALYSIS PATIEN TS. POCT-GLUCOSE [id number] 18:48:00 Test Item Value Reference Range Interpretation Comments POC-GLUCOSE METER 176 mg/dL 70-110 H TESTED AT [facility] 67 (BEAKER) (test code = PARESH Garcia [place] 1538) [address] [id number] 16:50:00 Test Item Value Reference Range Interpretation Comments POTASSIUM (BEAKER) (test code = 4.9 meq/L 3.5-5.1 379) CALCIUM, [id number] 16:31:00 Test Item Value Reference Range Interpretation Comments CALCIUM IONIZED (BEAKER) (test 1.12 mmol/L 1.12-1.27 code = 698) PH, BLOOD (BEAKER) (test code = 7.42 1810) POCT-GLUCOSE [id number] 13:33:00 Test Item Value Reference Range Interpretation Comments POC-GLUCOSE METER 259 mg/dL 70-110 H TESTED AT [place] [address] (BEAKER) (test code = PARESH Garcia [facility] 1538) [address] [id number] 13:26:00 Test Item Value Reference Range Interpretation Comments POTASSIUM (BEAKER) (test code = 4.5 meq/L 3.5-5.1 379) [id number] 10:47:00 Test Item Value Reference Range Interpretation Comments CORTISOL, TOTAL (BEAKER) (test code 8.7 ug/dL 3.7-19.4 = 2755) It is important that this lab be drawn as close to 8 am as possible. Thanks! [id number] 09:00:00 Test Item Value Reference Range Interpretation Comments PHOSPHORUS (BEAKER) (test code = 2.4 mg/dL 2.3-4.7 604) [id number] 09:00:00 Test Item Value Reference Range Interpretation Comments MAGNESIUM (BEAKER) (test code = 2.1 mg/dL 1.6-2.6 627) BASIC METABOLIC [id number] 09:00:00 Test Item Value Reference Range Interpretation [...] FOR DIALYSIS PATIEN TS. Specimen slightly ictericTACROLIMUS [id number] 08:45:00 Test Item Value Reference Range Interpretation Comments TACROLIMUS BLOOD (BEAKER) (test 8.1 ng/mL 10.0-20.0 L code = 657) CBC W/PLT COUNT & AUTO [id number] 08:28:00 Test Item Value Reference Range Interpretation [...] 3438) Received comment: User comments: Slide comments:CALCIUM, [id number] 08:15:00 Test Item Value Reference Range Interpretation Comments CALCIUM IONIZED (BEAKER) (test 1.03 mmol/L 1.12-1.27 L code = 698) PH, BLOOD (BEAKER) (test code = 7.40 1810) RAD, CHEST, 1 VIEW, NON [id number] 07:27:00Reason for exam:->respiratory failureShould this be performed at the bedside?->YesFINAL REPORT Chest one view. Clinical history: respiratory failure Comparison: Discussion: A frontal chest is provided. Cardiomediastinal contours are unchanged. Lines andtubes are in stable position. Extensive bilateral interstitial and airspace opacities appear unchanged. Small right pleural effusion is suspected. No pneumothorax. Signed: Judy Perryeport Verified Tj e/Time: 01/03/2018 07:27:35 Reading Location: [facility] Radiology Reading Room POCT- GLUCOSE [id number] 06:51:00 Test Item Value Reference Range Interpretation Comments POC-GLUCOSE METER 230 mg/dL 70-110 H TESTED AT [facility] 6720 (BEAKER) (test code = [facility] 1538) [address] [id number] 04:24:00 Test Item Value Reference Range Interpretation Comments MAGNESIUM (BEAKER) (test code = 2.1 mg/dL 1.6-2.6 627) BASIC METABOLIC [id number] 04:24:00 Test Item Value Reference Range Interpretation [...] FOR DIALYSIS PATIEN TS. Specimen slightly ictericCALCIUM, [id number] 04:07:00 Test Item Value Reference Range Interpretation Comments CALCIUM IONIZED (BEAKER) (test 1.12 mmol/L 1.12-1.27 code = 698) PH, BLOOD (BEAKER) (test code = 7.39 1810) BLOOD GAS, [id number] 04:07:00 Test Item Value Reference Range Interpretation [...] (BEAKER) (test code = 1819) 40.0 % [id number] 01:24:00 Test Item Value Reference Range Interpretation Comments POTASSIUM (BEAKER) (test code = 4.0 meq/L 3.5-5.1 379) CALCIUM, [id number] 01:04:00 Test Item Value Reference Range Interpretation Comments CALCIUM IONIZED (BEAKER) (test 1.09 mmol/L 1.12-1.27 L code = 698) PH, BLOOD (BEAKER) (test code = 7.36 1810) POCT-GLUCOSE [id number] 00:16:00 Test Item Value Reference Range Interpretation Comments POC-GLUCOSE METER 227 mg/dL 70-110 H TESTED AT [facility] 6720 (BEAKER) (test code = PARESH WHITNEY 1538) [address] [id number] 20:37:00 Test Item Value Reference Range Interpretation Comments POTASSIUM (BEAKER) (test code = 4.4 meq/L 3.5-5.1 379) [id number] 20:37:00 Test Item Value Reference Range Interpretation Comments MAGNESIUM (BEAKER) (test code = 1.9 mg/dL 1.6-2.6 627) [id number] 20:37:00 Test Item Value Reference Range Interpretation Comments PHOSPHORUS (BEAKER) (test code = 1.8 mg/dL 2.3-4.7 L 604) BASIC METABOLIC [id number] 18:56:00 Test Item Value Reference Range Interpretation [...] FOR DIALYSIS PATIEN TS. Specimen slightly ictericPOCT-GLUCOSE [id number] 18:20:00 Test Item Value Reference Range Interpretation Comments POC-GLUCOSE METER 224 mg/dL 70-110 H TESTED AT [facility] 6720 (BEAKER) (test code = PARESH Garcia [place] 1538) [address] [id number] 17:48:00 Test Item Value Reference Range Interpretation Comments POTASSIUM (BEAKER) 4.7 meq/L 3.5-5.1 Specimen slightly (test code = 379) hemolyzed CALCIUM, [id number] 17:35:00 Test Item Value Reference Range Interpretation Comments CALCIUM IONIZED (BEAKER) (test 1.12 mmol/L 1.12-1.27 code = 698) PH, BLOOD (BEAKER) (test code = 7.41 1810) PLATELET [id number] 17:35:00 Test Item Value Reference Range Interpretation Comments PLATELET COUNT (BEAKER) (test code 31 K/CU MM 150-450 L = 756) POCT-GLUCOSE [id number] 12:15:00 Test Item Value Reference Range Interpretation Comments POC-GLUCOSE METER 181 mg/dL 70-110 H TESTED AT [facility] 6720 (BEAKER) (test code = PARESH [place] 1538) [address] [id number] 10:15:00 Test Item Value Reference Range Interpretation Comments POTASSIUM (BEAKER) (test code = 4.4 meq/L 3.5-5.1 379) [id number] 10:15:00 Test Item Value Reference Range Interpretation Comments MAGNESIUM (BEAKER) (test code = 2.3 mg/dL 1.6-2.6 627) [id number] 10:15:00 Test Item Value Reference Range Interpretation Comments PHOSPHORUS (BEAKER) (test code = 2.2 mg/dL 2.3-4.7 L 604) BASIC METABOLIC [id number] 10:15:00 Test Item Value Reference Range Interpretation [...] FOR DIALYSIS PATIEN TS. Specimen slightly ictericTACROLIMUS [id number] 09:21:00 Test Item Value Reference Range Interpretation Comments TACROLIMUS BLOOD (BEAKER) (test 7.8 ng/mL 10.0-20.0 L code = 657) CALCIUM, [id number] 09:15:00 Test Item Value Reference Range Interpretation Comments CALCIUM IONIZED (BEAKER) (test 1.15 mmol/L 1.12-1.27 code = 698) PH, BLOOD (BEAKER) (test code = 7.42 1810) RAD, CHEST, 1 VIEW, NON [id number] 09:14:00Reason for exam:->respiratory failureShould this be performed at the bedside?->YesFINAL REPORT CLINICAL HISTORY: respiratory failure TECHNIQUE: 1 view of the chest. COMPARISON: 01/01/2018 IMPRESSION: The supporting lines and tubes are unchanged. Diffuse bilateral pulmonary infiltrates are unchanged. A small right pleural effusion is again suspected. The cardiomediastinal silhouette is magnified by technique with sternotomy wires. Signed: Jad Isaac [facility] Verified Date/Time: 01/02/2018 09:14:20 Reading Location: [facility] Radiology Reading Room BLOOD GAS, [id number] 05:19:00 Test Item Value Reference Range Interpretation [...] 40.0 % CBC W/PLT COUNT & AUTO [id number] 05:04:00 Test Item Value Reference Range Interpretation [...] (BEAKER) (test code = 2801) BASIC METABOLIC [id number] 05:04:00 Test Item Value Reference Range Interpretation [...] FOR DIALYSIS PATIEN TS. Specimen slightly ictericCALCIUM, [id number] 04:48:00 Test Item Value Reference Range Interpretation Comments CALCIUM IONIZED (BEAKER) (test 1.10 mmol/L 1.12-1.27 L code = 698) PH, BLOOD (BEAKER) (test code = 7.39 1810) [id number] 01:06:00 Test Item Value Reference Range Interpretation Comments POTASSIUM (BEAKER) (test code = 4.2 meq/L 3.5-5.1 379) CALCIUM, [id number] 00:53:00 Test Item Value Reference Range Interpretation Comments CALCIUM IONIZED (BEAKER) (test 1.17 mmol/L 1.12-1.27 code = 698) PH, BLOOD (BEAKER) (test code = 7.36 1810) POCT-GLUCOSE [id number] 00:37:00 Test Item Value Reference Range Interpretation Comments POC-GLUCOSE METER 233 mg/dL 70-110 H TESTED AT [facility] 6720 (BEAKER) (test code = PARESH WHITNEY 1538) [address] [id number] 21:09:00 Test Item Value Reference Range Interpretation Comments POTASSIUM (BEAKER) (test code = 4.2 meq/L 3.5-5.1 379) [id number] 21:09:00 Test Item Value Reference Range Interpretation Comments MAGNESIUM (BEAKER) (test code = 2.1 mg/dL 1.6-2.6 627) [id number] 21:09:00 Test Item Value Reference Range Interpretation Comments PHOSPHORUS (BEAKER) (test code = 2.3 mg/dL 2.3-4.7 604) POCT-GLUCOSE [id number] 18:00:00 Test Item Value Reference Range Interpretation Comments POC-GLUCOSE METER 262 mg/dL 70-110 H TESTED AT [facility] 6720 (BEAKER) (test code = PARESH Garcia [place] 1538) [address] BASIC METABOLIC [id number] 17:51:00 Test Item Value Reference Range Interpretation [...] DIALYSIS PATIEN TS. Specimen slightly ictericVANCOMYCIN LEVEL, [id number] 17:51:00 Test Item Value Reference Range Interpretation Comments VANCOMYCIN TROUGH (BEAKER) (test 11.6 ug/mL 10.0-20.0 code = 522) CALCIUM, [id number] 17:26:00 Test Item Value Reference Range Interpretation Comments CALCIUM IONIZED (BEAKER) (test 1.09 mmol/L 1.12-1.27 L code = 698) PH, BLOOD (BEAKER) (test code = 7.38 1810) [id number] 14:04:00 Test Item Value Reference Range Interpretation Comments POTASSIUM (BEAKER) (test code = 4.0 meq/L 3.5-5.1 379) BRONCHIAL CULTURE + GRAM [id number] 13:45:00 Test Item Value Reference Range Interpretation Comments CULTURE (BEAKER) (test code No growth = 1095) GRAM STAIN RESULT (BEAKER) 1+ WBCs (test code = 1123) GRAM STAIN RESULT (BEAKER) No organisms seen (test code = 83633) POCT-GLUCOSE [id number] 13:12:00 Test Item Value Reference Range Interpretation Comments POC-GLUCOSE METER 210 mg/dL 70-110 H TESTED AT [facility] 6720 (BEAKER) (test code = PARESH [place] 1538) [address] BLOOD GAS, [id number] 11:50:00 Test Item Value Reference Range Interpretation [...] (BEAKER) (test code = 1819) 40.0 % [id number] 09:26:00 Test Item Value Reference Range Interpretation Comments POTASSIUM (BEAKER) (test code = 4.3 meq/L 3.5-5.1 379) [id number] 09:26:00 Test Item Value Reference Range Interpretation Comments MAGNESIUM (BEAKER) (test code = 2.1 mg/dL 1.6-2.6 627) [id number] 09:26:00 Test Item Value Reference Range Interpretation Comments PHOSPHORUS (BEAKER) (test code = 3.0 mg/dL 2.3-4.7 604) TACROLIMUS [id number] 09:06:00 Test Item Value Reference Range Interpretation Comments TACROLIMUS BLOOD (BEAKER) (test 7.8 ng/mL 10.0-20.0 L code = 657) POCT-GLUCOSE [id number] 08:39:00 Test Item Value Reference Range Interpretation Comments POC-GLUCOSE METER 255 mg/dL 70-110 H TESTED AT [facility] 6720 (BEAKER) (test code = PARESH [place] 1538) [address] CALCIUM, [id number] 08:34:00 Test Item Value Reference Range Interpretation Comments CALCIUM IONIZED (BEAKER) (test 1.14 mmol/L 1.12-1.27 code = 698) PH, BLOOD (BEAKER) (test code = 7.39 1810) CBC W/PLT COUNT & AUTO [id number] 07:35:00 Test Item Value Reference Range Interpretation [...] Received comment: User comments: Slide comments:BLOOD GAS, [id number] 06:11:00 Test Item Value Reference Range Interpretation [...] (test code = 1819) 40.0 % BLOOD [id number] 06:00:00 Test Item Value Reference Range Interpretation Comments CULTURE (BEAKER) (test No growth in 5 days code = 1095) BLOOD [id number] 06:00:00 Test Item Value Reference Range Interpretation Comments CULTURE (BEAKER) (test No growth in 5 days code = 1095) RAD, CHEST, 1 VIEW, NON [id number] 05:37:00Reason for exam:->shortness of breathShould this be performed at the bedside?->YesFINAL REPORT Comparison exam: 12/31/2017 Diffuse bilateral pulmonary opacities, un changed. Blunting of the right costophrenic angle. Stable cardiomediastinal contours. Appropriate position of the support hardware. Signed: Mio Fink Verified Date/Time: 01/01/2018 05:37:06Reading Location: [address] Transitional Reading Room BASIC METABOLIC [id number] 05:06:00 Test Item Value Reference Range Interpretation [...] APPLICABLE FOR DIALYSIS PATIEN TS. Specimen slightly [id number] 01:21:00 Test Item Value Reference Range Interpretation Comments POTASSIUM (BEAKER) (test code = 4.3 meq/L 3.5-5.1 379) CRYPTOCOCCAL [id number] 01:09:00 Test Item Value Reference Range Interpretation Comments CRYPTOCOCCAL ANTIGEN, SERUM Negative Negative, Interference (BEAKER) (test code = 1828) CALCIUM, [id number] 00:26:00 Test Item Value Reference Range Interpretation Comments CALCIUM IONIZED (BEAKER) (test 1.09 mmol/L 1.12-1.27 L code = 698) PH, BLOOD (AKER) (test code = 7.38 1810) POCT-GLUCOSE [id number] 00:02:00 Test Item Value Reference Range Interpretation Comments POC-GLUCOSE METER 165 mg/dL 70-110 H TESTED AT [facility] 6720 ([facility]) (test code = [facility] [place] 1538) [address] [id number] 21:18:00 Test Item Value Reference Range Interpretation Comments POTASSIUM (BEAKER) (test code = 4.6 meq/L 3.5-5.1 379) [id number] 21:18:00 Test Item Value Reference Range Interpretation Comments MAGNESIUM (BEAKER) (test code = 2.1 mg/dL 1.6-2.6 627) [id number] 21:18:00 Test Item Value Reference Range Interpretation Comments PHOSPHORUS (BEAKER) (test code = 4.2 mg/dL 2.3-4.7 604) POCT-GLUCOSE [id number] 18:03:00 Test Item Value Reference Range Interpretation Comments POC-GLUCOSE METER 142 mg/dL 70-110 H TESTED AT [facility] 6720 [facility] (test code = [facility] [place] 1538) [address] BLOOD GAS, [id number] 17:55:00 Test Item Value Reference Range Interpretation [...] (BEAKER) (test code = 1819) 40.0 % [id number] 17:29:00 Test Item Value Reference Range Interpretation Comments POTASSIUM (BEAKER) (test code = 4.9 meq/L 3.5-5.1 379) CALCIUM, [id number] 16:38:00 Test Item Value Reference Range Interpretation Comments CALCIUM IONIZED (BEAKER) (test 1.05 mmol/L 1.12-1.27 L code = 698) PH, BLOOD (BEAKER) (test code = 7.37 1810) [id number] 14:13:00Medical Cytology Report Case: [id number] Authorizing Provider: Diane Eastman MD Collected: 12/30/2017 1434 Ordering Location: [address] Received: 12/30/2017 1620 Pathologist: Rivera Painter MD Specimen: Lung, Right Middle Lobe, BAL RIGHT MIDDLE LOBE LUNG, BAL (CYTOSPINS): - NEGATIVEFOR MALIGNANCY LIMITED BY OBSCURING ACUTE INFLAMMATION AND SCANT PULMONARY ELEMENTS The GMS stains are negative for Pneumocystis organisms and other fungi. No viral inclusions are seen. 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.RIGHT MIDDLE LOBE LUNG BALPrepared 3 cytospins, 1 iron stain and 1 GMS from 40ml cytorich red fixative sampleCollected: [id number]: [id number] following special studieswere performed on this case and the interpretation is incorporated in the diagnostic report above:GMS, [facility], Department of Pathology, [address] [place] [address], [facility], [address] [place] [address], [facility], [facility] of [facility], [address] [place] [address], [id number] 13:49:00 Test Item Value Reference Range Interpretation Comments POTASSIUM (BEAKER) (test code = 4.9 meq/L 3.5-5.1 379) RAD, ABDOMEN/KUB, 1 VIEW [id number] 13:24:00Reason for exam:->corpak placement Should this be [...] [place] Verified Date/Time: 12/31/2017 13:24:39 Reading Location: [facility] Radiology Reading Room POCT-GLUCOSE [id number] 12:27:00 Test Item Value Reference Range Interpretation Comments POC-GLUCOSE METER 170 mg/dL 70-110 H TESTED AT [facility] 6720 (BEAKER) (test code = PARESH Garcia [facility] 1537) [address] SPIN/CONCENTRATION [id number] 12:24:00 Test Item Value Reference Range Interpretation Comments CONCENTRATION CHARGED (BEAKER) (test Done code = 2657) [id number] 09:52:00 Test Item Value Reference Range Interpretation Comments POTASSIUM (BEAKER) (test code = 4.7 meq/L 3.5-5.1 379) [id number] 09:52:00 Test Item Value Reference Range Interpretation Comments MAGNESIUM (BEAKER) (test code = 2.3 mg/dL 1.6-2.6 627) [id number] 09:52:00 Test Item Value Reference Range Interpretation Comments PHOSPHORUS (BEAKER) (test code = 5.3 mg/dL 2.3-4.7 H 604) TACROLIMUS [id number] 08:55:00 Test Item Value Reference Range Interpretation Comments TACROLIMUS BLOOD (BEAKER) (test 7.2 ng/mL 10.0-20.0 L code = 657) CALCIUM, [id number] 08:29:00 Test Item Value Reference Range Interpretation Comments CALCIUM IONIZED (BEAKER) (test 1.01 mmol/L 1.12-1.27 L code = 698) PH, BLOOD (BEAKER) (test code = 7.36 1810) Check serum Ionized Calcium level after 4 hours after IV Calcium replacement. RAD, CHEST, 1 VIEW, NON [id number] 06:37:00Reason for exam:->shortness of breathShould this be performed at the bedside?->YesFINAL REPORT Comparison exam: 12/30/2017 Extensive bilateral airspace opacities un changed. Stable cardiomediastinal contours. Appropriate position of the support hardware. Signed: Mio Fink MDReport Verified Date/Time: 12/31/2017 06:37:39 Reading Location: [address] Transitional Reading Room BASIC METABOLIC [id number] 04:02:00 Test Item Value Reference Range Interpretation [...] 697) EGFR (BEAKER) (test 26 mL/min/1.73 ESTIMA ABUDLLAHI GFR IS code = 1092) sq m NOT ACCURATE CREATININE CLEARANCE IN PREDICTING GLOMERULAR FILTRATION RATE . ESTIMATED GFR I S NOT APPLICABLE FOR DIALYSIS PATIEN TS. Specimen slightly ictericHEPATIC FUNCTION [id number] 03:57:00 Test Item Value Reference Range Interpretation [...] Specimen slightly ictericCBC W/PLT COUNT & AUTO [id number] 03:43:00 Test Item Value Reference Range Interpretation [...] (BEAKER) (test code = 2801) BLOOD GAS, [id number] 03:30:00 Test Item Value Reference Range Interpretation [...] code = 1819) 65.0 % OXYGEN SATURATION, [id number] 01:31:00 Test Item Value Reference Range Interpretation Comments O2 SATURATION (MEASURED) (BEAKER) 87.4 % (test code = 1455) CALCIUM, [id number] 01:26:00 Test Item Value Reference Range Interpretation Comments CALCIUM IONIZED (BEAKER) (test 0.93 mmol/L 1.12-1.27 L code = 698) PH, BLOOD (BEAKER) (test code = 7.32 1810) Check serum Ionized Calcium level after 4 hours after IV Calcium replacement. BLOOD GAS, [id number] 01:12:00 Test Item Value Reference Range Interpretation [...] code = 1819) 80.0 % BASIC METABOLIC [id number] 00:59:00 Test Item Value Reference Range Interpretation [...] APPLICABLE FOR DIALYSIS PATIEN TS. Specimen slightly [id number] 00:57:00 Test Item Value Reference Range Interpretation Comments MAGNESIUM (BEAKER) (test code = 2.2 mg/dL 1.6-2.6 627) LACTIC ACID, ARTERIAL, WHOLE [id number] 00:55:00 Test Item Value Reference Range Interpretation Comments LACTATE BLOOD ARTERIAL (2) 1.3 mmol/L 0.5-2.2 (BEAKER) (test code = 2874) Effective 11/02/2015: Units/Reference Range ChangeNew: 0.5-2.2 mmol/L Previous: 5- 20 mg/dLSpecimen slightly [id number] 22:04:00 Test Item Value Reference Range Interpretation Comments POTASSIUM (BEAKER) (test code = 5.7 meq/L 3.5-5.1 H 379) [id number] 20:35:00 Test Item Value Reference Range Interpretation Comments PHOSPHORUS (BEAKER) (test code = 6.9 mg/dL 2.3-4.7 H 604) [id number] 20:35:00 Test Item Value Reference Range Interpretation Comments MAGNESIUM (BEAKER) (test code = 2.2 mg/dL 1.6-2.6 627) BODY FLUID CELL COUNT WITH [id number] 18:56:00 Test Item Value Reference Range Interpretation Comments APPEARANCE FLUID (BEAKER) Moderately Bloody Clear A (test code = 510) COLOR FLUID (BEAKER) (test Colorless Colorless, Straw code = 511) RBC FLUID (BEAKER) (test 05869 /cu mm <=1 H code = 513) [...] Tube (BEAKER) (test code = 2873) POCT-GLUCOSE [id number] 18:40:00 Test Item Value Reference Range Interpretation Comments POC-GLUCOSE METER 156 mg/dL 70-110 H TESTED AT [facility] 6720 (BEAKER) (test code = PARESH Garcia [facility] 1538) [address] BLOOD GAS, [id number] 18:15:00 Test Item Value Reference Range Interpretation [...] code = 1819) 80.0 % U/S, RENAL, [id number] 18:05:00Reason for exam:->NOHEMI AND ASSESS PVR FINAL [...] MDReport Verified Date/Time: 12/30/2017 18:05:19 Reading Location: [facility] P006J Ultrasound Reading Room LOGY [id number] 18:00:00 Test Item Value Reference Range Interpretation Comments CYTOLOGY RESULT POINTER See Separate Report (BEAKER) (test code = 2629) BASIC METABOLIC [id number] 15:00:00 Test Item Value Reference Range Interpretation [...] APPLICABLE FOR DIALYSIS PATIEN TS. Specimen slightly [id number] 14:59:00 Test Item Value Reference Range Interpretation Comments MAGNESIUM (BEAKER) (test code = 2.4 mg/dL 1.6-2.6 627) RAD, CHEST, 1 VIEW, NON [id number] 14:45:00Reason for exam:->s/p intubation and dialysis line [...] MDReport Verified Date/Time: 12/30/2017 14:45:29 Reading Location: [facility] Reading Room CALCIUM, IONIZED 2017-12-30 14:42:00 Test Item Value Reference Range Interpretation Comments CALCIUM IONIZED (BEAKER) (test 1.02 mmol/L 1.12-1.27 L code = 698) PH, BLOOD (BEAKER) (test code = 7.21 1810) Check serum Ionized Calcium level after 4 hours after IV Calcium replacement. BLOOD GAS, [id number] 14:42:00 Test Item Value Reference Range Interpretation [...] code = 1819) 100.0 % CMV PCR, [id number] 13:37:00 Test Item Value Reference Range Interpretation [...] and its performance characteristics determined by the [facility] Pathol ogy Department, Section of Molecular Pathology. [...] code = 1819) 100.0 % BLOOD GAS, [id number] 12:16:00 Test Item Value Reference Range Interpretation [...] code = 1819) 100.0 % POCT-LACTIC ACID, [id number] 11:59:00 Test Item Value Reference Range Interpretation Comments POC-LACTIC ACID, 2.1 mmol/L 0.4-1.3 H TESTED AT [facility] 6720 ARTERIAL (BEAKER) [facility] (test code = 2804) [address] POCT-BLOOD GASES, [id number] 11:59:00 Test Item Value Reference Range Interpretation Comments TEMP, CELSIUS-POC 37.0 (BEAKER) (test code = 1834) FIO2-POC (BEAKER) TESTED AT [facility] 6720 (test code = 1835) [facility] [address] PH, ARTERIAL-POC 7.151 7.350-7.450 LL (BEAKER) (test [...] L ARTERIAL-POC (BEAKER) (test code = 1841) [id number] 11:59:00 Test Item Value Reference Range Interpretation Comments POC-SODIUM ([facility]) 136 meq/L 135-148 TESTED A T [place] [address] (test code = 1542) [facility] [address] [id number] 11:59:00 Test Item Value Reference Range Interpretation Comments POC-POTASSIUM 5.7 meq/L 3.6-5.5 H TESTED AT [place] [address] ([facility]) (test code [place] [id number] = 1540) [id number] 11:59:00 Test Item Value Reference Range Interpretation Comments POC-GLUCOSE ([facility]) 123 mg/dL 70-110 H TESTED AT [place] [address] (test code = 1855) [facility] [address] POCT-CALCIUM [id number] 11:59:00 Test Item Value Reference Range Interpretation Comments POC-CALCIUM IONIZED 1.06 mmol/L 1.12-1.27 L TESTED [place] [address] ([facility]) (test code = [facility] 1536) [address] [id number]-[id number] 11:59:00 Test Item Value Reference Range Interpretation Comments POC-HEMATOCRIT 25 % 40-50 L TESTED AT [place] [address] ([facility]) (test code = [facility] [address] 1857) [id number] 11:59:00 Test Item Value Reference Range Interpretation Comments POC-HEMOGLOBIN 8.5 g/dL 13.0-16.8 L TESTED AT [place] [address] ([facility]) (test code = [facility] 1856) [address]UMXEHK AT [address] [address] TACROLIMUS [id number] 10:52:00 Test Item Value Reference Range Interpretation Comments TACROLIMUS BLOOD ([facility]) (test 8.6 ng/mL 10.0-20.0 L code = 657) RAD, CHEST, 1 VIEW, NON [id number] 04:44:00Reason for exam:->shortness of breathShould this be performed at the bedside?->YesFINAL REPORT Comparison exam: 12/28/2017 Increasing bilateral airspace consolidation. Stable cardiomediastinal contours. Right PICC line terminates in the right atrium. Signed: Mio Fink MDReport Verified Date/Time: 12/30/2017 04:44:59 Reading Location: [facility] B1 C013X Ortho Consult Reading Room CBC W/PLT COUNT & AUTO [id number] 03:53:00 Test Item Value Reference Range Interpretation [...] (BEAKER) (test code = 2801) BASIC METABOLIC [id number] 03:35:00 Test Item Value Reference Range Interpretation [...] S NOT APPLICABLE FOR DIALYSIS PATIEN TS. [id number] 03:34:00 Test Item Value Reference Range Interpretation Comments MAGNESIUM (BEAKER) (test code = 2.5 mg/dL 1.6-2.6 627) HEPATIC FUNCTION [id number] 03:34:00 Test Item Value Reference Range Interpretation [...] = 86 U/L 6-55 H 347) CALCIUM, [id number] 03:24:00 Test Item Value Reference Range Interpretation Comments CALCIUM IONIZED (BEAKER) (test 1.04 mmol/L 1.12-1.27 L code = 698) PH, BLOOD (BEAKER) (test code = 7.29 1810) BLOOD GAS, [id number] 03:24:00 Test Item Value Reference Range Interpretation [...] code = 1819) 85.0 % BLOOD GAS, [id number] 21:12:00 Test Item Value Reference Range Interpretation [...] (test code = 1819) 85.0 % POCT-GLUCOSE [id number] 21:11:00 Test Item Value Reference Range Interpretation Comments POC-GLUCOSE METER 117 mg/dL 70-110 H TESTED AT [facility] 6720 (BEAKER) (test code = PAR[place] 1538) [address] LACTIC ACID, ARTERIAL, WHOLE [id number] 20:27:00 Test Item Value Reference Range Interpretation Comments LACTATE BLOOD ARTERIAL (2) 1.0 mmol/L 0.5-2.2 (BEAKER) (test code = 2874) Effective 11/02/2015: Units/Reference Range ChangeNew: 0.5-2.2 mmol/L Previous: 5- 20 mg/dLBLOOD GAS, [id number] 20:09:00 Test Item Value Reference Range Interpretation [...] C (test code = 1818) COMPREHENSIVE METABOLIC [id number] 18:59:00 Test Item Value Reference Range Interpretation [...] S NOT APPLICABLE FOR DIALYSIS PATIEN TS. [id number] 18:35:00 Test Item Value Reference Range Interpretation Comments MAGNESIUM (BEAKER) (test code = 2.3 mg/dL 1.6-2.6 627) BLOOD GAS, [id number] 18:00:00 Test Item Value Reference Range Interpretation [...] C (test code = 1818) OXYGEN SATURATION, [id number] 18:00:00 Test Item Value Reference Range Interpretation Comments O2 SATURATION (MEASURED) (BEAKER) 89.9 % (test code = 1455) CALCIUM, [id number] 18:00:00 Test Item Value Reference Range Interpretation Comments CALCIUM IONIZED (BEAKER) (test 1.03 mmol/L 1.12-1.27 L code = 698) PH, BLOOD (BEAKER) (test code = 7.35 1810) CBC W/PLT COUNT & AUTO [id number] 15:15:00 Test Item Value Reference Range Interpretation [...] PERCENT (BEAKER) (test code = 2801) POCT-GLUCOSE [id number] 12:54:00 Test Item Value Reference Range Interpretation Comments POC-GLUCOSE METER 111 mg/dL 70-110 H TESTED AT [facility] 6720 (BEAKER) (test code = [place]YULISA [place] 1538) [address] SPUTUM CULTURE + GRAM [id number] 10:56:00 Test Item Value Reference Range Interpretation Comments CULTURE (BEAKER) 3+ Normal respiratory (test code = 1095) tre present GRAM STAIN RESULT 3+ White blood cells (BEAKER) (test code = seen 1123) GRAM STAIN RESULT 0-5 epithelial cells (BEAKER) (test code = 09453) GRAM STAIN RESULT <1+ gram negative rods (BEAKER) (test code = 26664) GRAM STAIN RESULT <1+ gram positive rods (BEAKER) (test code = 519297) GRAM STAIN RESULT <1+ gram positive cocci (BEAKER) (test code = in clusters 405225) TACROLIMUS [id number] 10:34:00 Test Item Value Reference Range Interpretation Comments TACROLIMUS BLOOD (BEAKER) (test 9.2 ng/mL 10.0-20.0 L code = 657) BLOOD GAS, [id number] 08:45:00 Test Item Value Reference Range Interpretation [...] (test code = 1819) 40.0 % CALCIUM, [id number] 07:52:00 Test Item Value Reference Range Interpretation Comments CALCIUM IONIZED (BEAKER) (test 1.01 mmol/L 1.12-1.27 L code = 698) PH, BLOOD (BEAKER) (test code = 7.41 1810) Check serum Ionized Calcium level after 4 hours after IV Calcium replacement. BASIC METABOLIC [id number] 06:54:00 Test Item Value Reference Range Interpretation [...] APPLICABLE FOR DIALYSIS PATIEN TS. HEPATIC FUNCTION [id number] 06:14:00 Test Item Value Reference Range Interpretation [...] 96 U/L 6-55 H 347) VANCOMYCIN LEVEL, [id number] 06:12:00 Test Item Value Reference Range Interpretation Comments VANCOMYCIN TROUGH (BEAKER) (test 17.7 ug/mL 10.0-20.0 code = 522) HEPATITIS PANEL, [id number] 01:10:00 Test Item Value Reference Range Interpretation Comments HEPATITIS A IGM ANTIBODY (BEAKER) Nonreactive Nonreactive (test code = 498) HEPATITIS B CORE IGM ANTIBODY Nonreactive Nonreactive (BEAKER) (test code = 645) HEPATITIS C ANTIBODY (BEAKER) Nonreactive Nonreactive (test code = 367) HEPATITIS B SURFACE ANTIGEN (2) Nonreactive Nonreactive (BEAKER) (test code = 2585) BLOOD GAS, [id number] 23:35:00 Test Item Value Reference Range Interpretation [...] % 30 minutes after sodium bicarbonate administration.CALCIUM, [id number] 20:10:00 Test Item Value Reference Range Interpretation Comments CALCIUM IONIZED (BEAKER) (test 1.02 mmol/L 1.12-1.27 L code = 698) PH, BLOOD (BEAKER) (test code = 7.38 1810) BLOOD GAS, [id number] 20:09:00 Test Item Value Reference Range Interpretation [...] (BEAKER) (test code = 1819) 40.0 % [id number] 17:27:00 Test Item Value Reference Range Interpretation Comments HAPTOGLOBIN (BEAKER) (test code = 86 mg/dL 14-258 366) CREATININE, RANDOM [id number] 16:05:00 Test Item Value Reference Range Interpretation Comments CREATININE URINE (BEAKER) (test 53.1 mg/dL code = 375) Reference Range: No NormalsPOTASSIUM, RANDOM [id number] 16:05:00 Test Item Value Reference Range Interpretation Comments POTASSIUM URINE (BEAKER) (test 48.4 meq/L code = 195) Reference Range: No NormalsPROTEIN, RANDOM [id number] 16:05:00 Test Item Value Reference Range Interpretation Comments PROTEIN, URINE (BEAKER) (test code = 9 mg/dL 0-14 1569) SODIUM, RANDOM [id number] 16:05:00 Test Item Value Reference Range Interpretation Comments SODIUM URINE (BEAKER) (test code = 64 meq/L 243) Reference Range: No NormalsURINALYSIS W/ [id number] 16:02:00 Test Item Value Reference Range Interpretation [...] 1574) SOURCE(BEAKER) (test code = Urine, Voided 4190) CREATINE KINASE (CK)2017-12-28 15:27:00 Test Item Value Reference Range Interpretation Comments CREATINE KINASE TOTAL (BEAKER) (test 133 U/L 29-200 code = 380) [id number] 15:26:00 Test Item Value Reference Range Interpretation Comments POTASSIUM (BEAKER) (test code = 4.6 meq/L 3.5-5.1 379) [id number] 15:26:00 Test Item Value Reference Range Interpretation Comments MAGNESIUM (BEAKER) (test code = 2.2 mg/dL 1.6-2.6 627) [id number] 15:26:00 Test Item Value Reference Range Interpretation Comments PHOSPHORUS (BEAKER) (test code = 4.1 mg/dL 2.3-4.7 604) CALCIUM, [id number] 14:59:00 Test Item Value Reference Range Interpretation Comments CALCIUM IONIZED (BEAKER) (test 0.98 mmol/L 1.12-1.27 L code = 698) PH, BLOOD (BEAKER) (test code = 7.42 1810) [id number] 12:31:00 Test Item Value Reference Range Interpretation Comments PROCALCITONIN (BEAKER) (test code = > ng/mL <0.05 3036) SEPSIS RISK (ng/mL)Low: 0.05-0.50Intermediate: 0.51-2.00High: >=2.01 IMMUNOGLOBULIN G (IGG)2017-12-28 12:15:00 Test Item Value Reference Range Interpretation Comments IMMUNOGLOBULIN G (IGG) (BEAKER) (test < mg/dL 540-1822 L code = 427) CBC W/PLT COUNT & AUTO [id number] 11:41:00 Test Item Value Reference Range Interpretation [...] surgical changes in the mediastinum. Signed: Torey Hartleyeport Verified Date/Time: 12/28/2017 10:56:56 Reading Location: [facility] C013X Ortho Consult Reading Room HEPATIC FUNCTION [id number] 10:02:00 Test Item Value Reference Range Interpretation [...] 125-220 H code = 635) HEPATIC FUNCTION [id number] 09:38:00 Test Item Value Reference Range Interpretation [...] = 109 U/L 6-55 H 347) TACROLIMUS [id number] 08:50:00 Test Item Value Reference Range Interpretation Comments TACROLIMUS BLOOD (BEAKER) (test 11.2 ng/mL 10.0-20.0 code = 657) [id number] 08:44:00 Test Item Value Reference Range Interpretation Comments CORTISOL, TOTAL (BEAKER) (test 16.7 ug/dL 3.7-19.4 code = 2755) BASIC METABOLIC [id number] 07:08:00 Test Item Value Reference Range Interpretation [...] APPLICABLE FOR DIALYSIS PATIEN TS. VANCOMYCIN LEVEL, [id number] 06:47:00 Test Item Value Reference Range Interpretation Comments VANCOMYCIN RANDOM (BEAKER) (test 13.8 ug/mL code = 523) Reference Range: No [id number] 06:23:00 Test Item Value Reference Range Interpretation Comments MAGNESIUM (BEAKER) (test code = 1.7 mg/dL 1.6-2.6 627) BLOOD GAS, [id number] 06:07:00 Test Item Value Reference Range Interpretation [...] 1819) 100.0 % LACTIC ACID, ARTERIAL, WHOLE [id number] 05:20:00 Test Item Value Reference Range Interpretation Comments LACTATE BLOOD ARTERIAL (2) 3.1 mmol/L 0.5-2.2 H (BEAKER) (test code = 2874) Effective 11/02/2015: Units/Reference Range ChangeNew: 0.5-2.2 mmol/L Previous: 5- 20 mg/dLLACTIC ACID, VENOUS, WHOLE [id number] 23:10:00 Test Item Value Reference Range Interpretation Comments LACTATE BLOOD VENOUS (2) (BEAKER) 4.1 mmol/L 0.5-2.2 H (test code = 2872) Effective 11/02/2015: Units/Reference Range ChangeNew: 0.5-2.2 mmol/L Previous: 5- 20 mg/[id number] 23:09:00 Test Item Value Reference Range Interpretation Comments POTASSIUM (BEAKER) (test code = 5.0 meq/L 3.5-5.1 379) BLOOD GAS, [id number] 22:54:00 Test Item Value Reference Range Interpretation [...] C (test code = 1818) U/S, ABDOMINAL, [id number] 22:00:00Abdomen limited area? Add comment if clarification [...] Fink Verified Date/Time: 12/27/2017 22:00:32 Reading Location: [address] Reading Room RAD, CHEST, 1 VIEW, NON [id number] 19:03:00Reason for exam:->eval pulmonary congestion/dyspneaShould this be [...] MDReport Verified Date/Time: 12/27/2017 19:03:45 Reading Location: [address] Reading Room BLOOD GAS, [id number] 18:29:00 Test Item Value Reference Range Interpretation [...] 21.0 % RAD, CHEST, 1 VIEW, NON [id number] 15:36:00Reason for exam:->RUE picc line placement Should [...] MDReport Verified Date/Time: 12/27/2017 15:36:05 Reading Location: [facility] C013W Consult Reading Room BASIC METABOLIC PANEL 2017-12-27 [...] DIALYSIS PATIEN TS. LACTIC ACID, ARTERIAL, WHOLE [id number] 14:33:00 Test Item Value Reference Range Interpretation Comments LACTATE BLOOD ARTERIAL (2) 4.2 mmol/L 0.5-2.2 H (BEAKER) (test code = 2874) Effective 11/02/2015: Units/Reference Range ChangeNew: 0.5-2.2 mmol/L Previous: 5- 20 mg/dLBLOOD GAS, [id number] 14:11:00 Test Item Value Reference Range Interpretation [...] (test code = 1819) 21.0 % PROTHROMBIN [id number] 11:17:00 Test Item Value Reference Range Interpretation Comments PROTIME (BEAKER) (test code = 23.8 seconds 11.7-14.7 H 759) INR (BEAKER) (test code = 370) 2.1 <=5.9 RECOMMENDED COUMADIN/WARFARIN INR THERAPY RANGESSTANDARD DOSE: 2.0 - 3.0 Includes: PROPHYLAXIS for venous thrombosis, systemic embolization; TREATMENT for venous thrombosis and/or pulmonary embolus.HIGH RISK: Target INR is 2.5-3.5 for patients with mechanical heart valves.[id number] 11:17:00 Test Item Value Reference Range Interpretation Comments FIBRINOGEN LEVEL (BEAKER) (test 337 mg/dl 225-434 code = 658) (CELLAVISION MANUAL DIFF)2017-12-27 11:13:00 Test Item Value [...] comments: Slide comments:CBC W/PLT COUNT & AUTO [id number] 11:13:00 Test Item Value Reference Range Interpretation [...] /100 WBC 0-0 (test code = 413) RESPIRATORY PANEL [id number] 10:38:00 Test Item Value Reference Range Interpretation Comments HUMAN METAPNEUMOVIRUS Not detected Not detected, (BEAKER) (test code = Inconclusive 2979) RHINOVIRUS (BEAKER) (test Not detected Not detected, code = 9034) Inconclusive INFLUENZA A (BEAKER) (test Not detected Not detected, code = 2428) Inconclusive INFLUENZA A SUBTYPE H1 Not detected Not detected, (BEAKER) (test code = Inconclusive 0736) INFLUENZA A SUBTYPE H3 Not detected Not [...] (BEAKER) (test code = Inconclusive 3207) TACROLIMUS [id number] 08:44:00 Test Item Value Reference Range Interpretation Comments TACROLIMUS BLOOD (BEAKER) (test 12.2 ng/mL 10.0-20.0 code = 657) [id number] 08:35:00 Test Item Value Reference Range Interpretation Comments MAGNESIUM (BEAKER) (test code = 1.7 mg/dL 1.6-2.6 627) CALCIUM, [id number] 06:59:00 Test Item Value Reference Range Interpretation Comments CALCIUM IONIZED (BEAKER) (test 1.05 mmol/L 1.12-1.27 L code = 698) PH, BLOOD (BEAKER) (test code = 7.35 1810) Check serum Ionized Calcium level after 4 hours after IV Calcium replacement. BASIC METABOLIC [id number] 06:02:00 Test Item Value Reference Range Interpretation [...] DIALYSIS PATIEN TS. LACTIC ACID, VENOUS, WHOLE [id number] 05:50:00 Test Item Value Reference Range Interpretation Comments LACTATE BLOOD VENOUS (2) (BEAKER) 5.9 mmol/L 0.5-2.2 H (test code = 2872) Effective 11/02/2015: Units/Reference Range ChangeNew: 0.5-2.2 mmol/L Previous: 5- 20 mg/dLBLOOD GAS, [id number] 05:29:00 Test Item Value Reference Range Interpretation [...] code = 1819) 21.0 % STREP PNEUMONIAE [id number] 04:39:00 Test Item Value Reference Range Interpretation [...] the detection limit of the test.LEGIONELLA ANTIGEN, [id number] 04:39:00 Test Item Value Reference Range Interpretation Comments L. PNEUMOPHILA Negative - see Negative fo r L. SEROGP 1 UR AG comment pneumophila (BEAKER) (test code serogrou p 1 antigen, = 1156) suggesting no r ecent or current infe ction with this serog roup. Legionellosis c annot be ruled out si nce other serogroup s and species may cau se disease. [id number] 02:38:00 Test Item Value Reference Range Interpretation Comments POTASSIUM (BEAKER) (test code = 5.2 meq/L 3.5-5.1 H 379) LACTIC ACID, ARTERIAL, WHOLE [id number] 02:38:00 Test Item Value Reference Range Interpretation Comments LACTATE BLOOD 6.1 mmol/L 0.5-2.2 H Specimen sligh tly ARTERIAL (2) (BEAKER) hemoly zed (test code = 2874) Effective 11/02/2015: Units/Reference Range ChangeNew: 0.5-2.2 mmol/L Previous: 5- 20 mg/dLBLOOD GAS, [id number] 02:17:00 Test Item Value Reference Range Interpretation [...] code = 1819) 100.0 % BASIC METABOLIC [id number] 01:24:00 Test Item Value Reference Range Interpretation [...] S NOT APPLICABLE FOR DIALYSIS PATIEN TS. [id number] 01:12:00 Test Item Value Reference Range Interpretation Comments MAGNESIUM (BEAKER) (test code = 1.2 mg/dL 1.6-2.6 L 627) LACTIC ACID, VENOUS, WHOLE [id number] 01:04:00 Test Item Value Reference Range Interpretation Comments LACTATE BLOOD VENOUS (2) (BEAKER) 6.2 mmol/L 0.5-2.2 H (test code = 2872) Effective 11/02/2015: Units/Reference Range ChangeNew: 0.5-2.2 mmol/L Previous: 5- 20 mg/dLCALCIUM, [id number] 00:32:00 Test Item Value Reference Range Interpretation Comments CALCIUM IONIZED (BEAKER) (test 1.05 mmol/L 1.12-1.27 L code = 698) PH, BLOOD (BEAKER) (test code = 7.22 1810) BLOOD GAS, [id number] 00:31:00 Test Item Value Reference Range Interpretation [...] code = 1819) 21.0 % HEMOGLOBIN AND [id number] 00:28:00 Test Item Value Reference Range Interpretation [...] PATIEN TS. CBC W/PLT COUNT & AUTO [id number] 22:18:00 Test Item Value Reference Range Interpretation [...] code = 413) LACTIC ACID, VENOUS, WHOLE [id number] 22:08:00 Test Item Value Reference Range Interpretation Comments LACTATE BLOOD VENOUS (2) (BEAKER) 9.1 mmol/L 0.5-2.2 H (test code = 2872) Effective 11/02/2015: Units/Reference Range ChangeNew: 0.5-2.2 mmol/L Previous: 5- 20 mg/dLRAD, CHEST, 1 VIEW, NON [id number] 21:46:00Reason for exam:->SOB FINAL REPORT RAD, CHEST, [...] MDReport Verified Date/Time: 12/26/2017 21:46:39 Reading Location: [address] Reading Room TACROLIMUS [id number] 15:12:00 Test Item Value Reference Range Interpretation Comments TACROLIMUS BLOOD (BEAKER) (test 11.5 ng/mL 10.0-20.0 code = 657) [id number] 11:00:00 Test Item Value Reference Range Interpretation Comments MAGNESIUM (BEAKER) (test code = 1.9 mg/dL 1.6-2.6 627) BASIC METABOLIC [id number] 11:00:00 Test Item Value Reference Range Interpretation [...] PATIEN TS. CBC W/PLT COUNT & AUTO [id number] 10:42:00 Test Item Value Reference Range Interpretation [...] PERCENT (BEAKER) (test code = 2801) BLOOD [id number] 13:27:00 Test Item Value Reference Range Interpretation Comments CULTURE (BEAKER) (test No growth in 5 days code = 1095) SPUTUM CULTURE + GRAM [id number] 13:39:00 Test Item Value Reference Range Interpretation Comments CULTURE (BEAKER) 2+ Normal respiratory (test code = 1095) tre present GRAM STAIN RESULT 3+ WBCs (BEAKER) (test code = 1123) GRAM STAIN RESULT 0-5 epithelial cells (BEAKER) (test code = 61591) GRAM STAIN RESULT No organisms seen (BEAKER) (test code = 29475) TACROLIMUS [id number] 09:48:00 Test Item Value Reference Range Interpretation Comments TACROLIMUS BLOOD (BEAKER) (test 7.3 ng/mL 10.0-20.0 L code = 657) BASIC METABOLIC [id number] 06:43:00 Test Item Value Reference Range Interpretation [...] PATIEN TS. CBC W/PLT COUNT & AUTO [id number] 06:41:00 Test Item Value Reference Range Interpretation [...] L 0.00-0.20 (test code = 417) 0.00TACROLIMUS [id number] 12:16:00 Test Item Value Reference Range Interpretation Comments TACROLIMUS BLOOD (BEAKER) (test 7.3 ng/mL 10.0-20.0 L code = 657) CBC W/PLT COUNT & AUTO [id number] 07:26:00 Test Item Value Reference Range Interpretation [...] 0.00-0.20 (test code = 417) 0.00BASIC METABOLIC [id number] 06:50:00 Test Item Value Reference Range Interpretation [...] DIALYSIS PATIEN TS. SPUTUM CULTURE + GRAM [id number] 15:49:00 Test Item Value Reference Range Interpretation Comments CULTURE (BEAKER) Oropharyngeal (test code = 1095) contamination, specimen rejected. Recollect requested. GRAM STAIN RESULT 3+ White blood cells seen (BEAKER) (test code = 1123) GRAM STAIN RESULT >25 epithelial cells (BEAKER) (test code = 26139) GRAM STAIN RESULT <1+ gram negative rods (BEAKER) (test code = 23177) TACROLIMUS [id number] 13:39:00 Test Item Value Reference Range Interpretation Comments TACROLIMUS BLOOD (BEAKER) (test 6.1 ng/mL 10.0-20.0 L code = 657) RESPIRATORY PANEL [id number] 13:06:00 Test Item Value Reference Range Interpretation [...] (BEAKER) (test code = Inconclusive 3207) TACROLIMUS [id number] 11:17:00 Test Item Value Reference Range Interpretation Comments TACROLIMUS BLOOD (BEAKER) (test 5.9 ng/mL 10.0-20.0 L code = 657) BASIC METABOLIC [id number] 07:20:00 Test Item Value Reference Range Interpretation [...] PATIEN TS. CBC W/PLT COUNT & AUTO [id number] 07:16:00 Test Item Value Reference Range Interpretation [...] = 417) 0.00CREATINE KINASE (CK), TOTAL AND [id number] 18:57:00 Test Item Value Reference Range Interpretation Comments CREATINE KINASE TOTAL (BEAKER) 35 U/L 29-200 (test code = 380) CREATINE KINASE-MB (BEAKER) (test 0.9 ng/mL 0.0-6.6 code = 750) CREATINE KINASE-MB INDEX (BEAKER) 2.6 % (test code = 395) Effective 05/18/2014: CK-MB Reference Range ChangeNew: 0.0-6.6 Previous: 0.0-4.9CK-MB Reference Range:<6.7 Normal6.7-10.0 Borderline>10.0 Abnormal TROPONIN [id number] 18:57:00 Test Item Value Reference Range Interpretation [...] 0-100 (test code = 700) BASIC METABOLIC [id number] 18:50:00 Test Item Value Reference Range Interpretation [...] S NOT APPLICABLE FOR DIALYSIS PATIEN TS. [id number] 18:50:00 Test Item Value Reference Range Interpretation [...] mechanical heart valves.CBC W/PLT COUNT & AUTO [id number] 18:47:00 Test Item Value Reference Range Interpretation [...] code = 417) 0.00LACTIC ACID, VENOUS, WHOLE [id number] 18:46:00 Test Item Value Reference Range Interpretation Comments LACTATE BLOOD VENOUS 1.7 mmol/L 0.5-2.2 Specime n moderately (2) (BEAKER) (test hemolyzed code = 2872) Effective 11/02/2015: Units/Reference Range ChangeNew: 0.5-2.2 mmol/L Previous: 5- 20 mg/dL
[2022-08-04] MEDS ORDERED: ALBUTEROL 2.5 MG/3 ML NEB SOL ONE (01:58)
[2022-08-04 01:59] LABS: Protime INR 3.41
[2022-08-04] MEDS ORDERED: IPRATROPIUM BROM 0.5MG/2.5ML ONE (01:59)
[2022-08-04 02:06] LABS: Bilirubin Total 4.8 mg/dL (0.2-1.0); Potassium 4.4 mmol/L (3.5-5.1); Protein, Total 3.8 g/dL (6.4-8.2)
[2022-08-04 02:20] LABS: Anisocytosis 1+; Blood Morphology Comment NOTED (NOT SEEN); Burr Cells 2+; Macrocytosis 2+; Platelet Estimate DECR; Teardrop Cell 1+
[2022-08-04] MEDS ORDERED: CEFEPIME 1 GM/VIAL ONE (02:24)
[2022-08-04] MEDS ORDERED: NA CHLORIDE 0.9% 100 ML ONE (02:24)
[2022-08-04] MEDS ORDERED: Ringers Lactate 1,000 ML IV ONE (02:24)
[2022-08-04] MEDS ORDERED: LIDOCAINE VISCOUS 2% SOLN 15 ML UDC ONE (02:30)
[2022-08-04 02:48] LABS: Arterial Blood Carboxyhemoglob 1.6 % (0-1.5); Blood O2 Saturation 91.9 % (92-98.5)
--- NOTE | 2022-08-04 02:58 | ER ---
Nurse's Notes [facility] [place] Name: Joel Desouza Age: 67 yrs Sex: Male : 1955 Arrival Date: 08/04/2022 Time: 01:31 Bed 2 Private MD: Diagnosis: Bronchopneumonia, unspecified organism;Severe sepsis with septic shock;acute renal failure, hypoglycemia Presentation: 08/04 01:44 Chief complaint: EMS states: Pt called for SOB, upon EMS arrival BGL was 24, pt able to jb4 follow commands, given 15g of oral glucose, bgl up to 49, given second dose of 15g oral glucose, unable to establish a line. Coronavirus screen: At this time, the client does not indicate any symptoms associated with coronavirus-19. Ebola Screen: No symptoms or risks identified at this time. Initial Sepsis Screen: Does the patient meet any 2 criteria? RR > 20 per min. Yes Does the patient have a suspected source of infection? Yes: Productive cough/pneumonia. Risk Assessment: Do you want to hurt yourself or someone else? Patient reports no desire to harm self or others. Onset of symptoms was August 04, 2022. Transition of care: patient was not received from another setting of care. 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 - Social history:: Smoking status: unknown. Screenin:35 Abuse screen: Denies threats or abuse. Nutritional screening: No deficits noted. jb4 Tuberculosis screening: No symptoms or risk factors identified. Assessment: 01:35 General: Appears distressed, uncomfortable, Behavior is calm, cooperative. Pain: Denies jb4 pain. Neuro: Level of Consciousness is awake, alert, obeys commands, Oriented to person, place, time, situation. Cardiovascular: Patient's skin is warm and dry. Respiratory: Airway is patent Respiratory effort is even, labored, Respiratory pattern is symmetrical, tachypnea Audible crackles on expiration. GI: No signs and/or symptoms were reported involving the gastrointestinal system. : No signs and/or symptoms were reported regarding the genitourinary system. EENT: No signs and/or symptoms were reported regarding the EENT system. Derm: Skin is intact, Skin is dry, Skin is jaundiced, pale, Skin temperature is warm. Musculoskeletal: Circulation, motion, and sensation intact. Range of motion: intact in all extremities. 02:40 Reassessment: Patient appears in no apparent distress at this time. No changes from jb4 previously documented assessment. Patient and/or family updated on plan of care and expected duration. Pain level reassessed. 04:00 Reassessment: Patient appears in no apparent distress at this time. No changes from jb4 previously documented assessment. Patient and/or family updated on plan of care and expected duration. Pain level reassessed. Vital Signs: 01:44 BP 138 / 54; Pulse 107; Resp 26; Temp 97.5; Pulse Ox 99% on R/A; Weight 54.43 kg; jb4 Height 5 ft. 6 in. (167.64 cm); 02:40 BP 126 / 58; Pulse 114; Resp 25; Pulse Ox 96% on R/A; jb4 04:00 BP 125 / 56; Pulse 111; Resp 25; Pulse Ox 100% on 2 lpm NC; jb4 01:44 Body Mass Index 19.37 (54.43 kg, 167.64 cm) jb4 ED Course: 01:31 Patient arrived in ED. jb4 01:31 Familia Servin MD is Attending Physician. jr11 01:43 Michael Valentin, RN is Primary Nurse. jb4 01:44 Lactate w/ 2H reflex if indic. Sent. jb4 01:44 Protime (+inr) Sent. jb4 01:44 Ptt, Activated Sent. jb4 01:44 Urine Culture Sent. jb4 01:44 CMP Sent. jb4 01:44 CBC with Diff Sent. jb4 01:51 Triage completed. jb4 01:51 Arm band placed on right wrist. jb4 02:29 Chest Single View XRAY In Process Unspecified. EDMS 02:35 Parnell cath inserted, using sterile technique, 16 Fr., by pa, balloon inflated, to aa9 gravity drainage, returned rosita urine. Patient tolerated well. 02:35 Initiated transfer to [facility]. wm 02:35 Pt accepted for transfer. wm 03:26 Chest Abd Pelvis Wo Con In Process Unspecified. EDMS 04:51 No provider procedures requiring assistance completed. Patient transferred, IV remains jb4 in place. Administered Medications: 01:43 Drug: D50W 50 ml Route: IVP; Site: right upper arm; jb4 02:00 Follow up: Response: No adverse reaction jb4 01:52 Drug: D10 in Water [2 mL/kg] 250 ml Route: IVP; Site: right upper arm; jb4 02:00 Follow up: Response: No adverse reaction jb4 02:05 Drug: DuoNeb (albuterol 2.5 mg, ipratropium 0.5 mg) (3:1) (2.5 mg - 0.5 mg) 3 ml Route: jb4 Nebulizer; 02:30 Follow up: Response: No adverse reaction jb4 02:34 Drug: Cefepime 1 grams Route: IVPB; Rate: 200 ml/hr; Infused Over: 30 mins; Site: right jb4 upper arm; 03:04 Follow up: Response: No adverse reaction; IV Status: Completed infusion; IV Intake: jb4 100ml 02:35 Drug: Lactated Ringers Solution 500 ml Route: IV; Rate: bolus; Site: right upper arm; jb4 03:35 Follow up: Response: No adverse reaction; Marked relief of symptoms; IV Status: jb4 Completed infusion; IV Intake: 500ml 03:45 Follow up: Response: No adverse reaction; IV Status: Completed infusion; IV Intake: aa9 500ml Intake: 03:04 IV: 100ml; Total: 100ml. jb4 03:35 IV: 500ml; Total: 600ml. jb4 03:45 IV: 500ml; Total: 1100ml. aa9 Outcome: 02:57 ER care complete, transfer ordered by . alonso 04:51 Transferred by ground EMS to [facility], Transfer form completed. jb4 X-rays sent w/ patient. 04:51 Condition: stable 04:51 Discharge instructions given to patient, Instructed on the need for transfer, Demonstrated understanding of instructions. 04:53 Patient left the ED. jb4 Signatures: Dispatcher [employer] EDMS Michael Valentin RN RN jb4 Sangeetha Block Jose, MD MD jrRoxana Foy RN RN aa9 Corrections: (The following items were deleted from the chart) 02:36 01:44 BP 103 / 53; Pulse 68bpm; Resp 26bpm; Pulse Ox 99% RA; Temp 97.5F; 54.43 kg; jb4 Height 5 ft. 6 in.; BMI: 19.3; jb4
--- NOTE | 2022-08-04 02:58 | EDPHYS ---
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 Patient with limited history stating that he feels very short of breath EMS got there, he was hypoglycemic in the 20s, was given oral glucose x2. Patient also complaining of generalized fatigue malaise, states good drug compliance to include his Prograf.. 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 - Social history:: Smoking status: unknown. ROS: 01:34 All other systems are negative. [facility] Exam: 01:34 Constitutional: appears chronically ill Head/Face: Normocephalic, atraumatic. Eyes: 11 Extra-ocular motions intact. Lids and lashes normal. Conjunctiva and sclera are non-icteric and not injected. Cornea within normal limits. Periorbital areas with no swelling, redness, or edema. ENT: Nares patent. No nasal discharge, no septal abnormalities noted. Oropharynx with no redness, swelling, or masses, exudates, or evidence of obstruction, uvula midline. Mucous membranes moist. Cardiovascular: tachy regular Respiratory: diminished diffusely with mild distress Abdomen/GI: distented +fluid wave Back: No spinal tenderness. No costovertebral tenderness. Full range of motion. MS/ Extremity: Pulses equal, no cyanosis. Neurovascular intact. Full, normal range of motion. Neuro: Awake and alert, GCS 15, oriented to person, place, time, and situation. No gross motor or sensory deficits. Vital Signs: 01:44 BP 138 / 54; Pulse 107; Resp 26; Temp 97.5; Pulse Ox 99% on R/A; Weight 54.43 kg; jb4 Height 5 ft. 6 in. (167.64 cm); 02:40 BP 126 / 58; Pulse 114; Resp 25; Pulse Ox 96% on R/A; jb4 04:00 BP 125 / 56; Pulse 111; Resp 25; Pulse Ox 100% on 2 lpm NC; jb4 01:44 Body Mass Index 19.37 (54.43 kg, 167.64 cm) jb4 MDM: 01:33 Patient medically screened. jr11 01:34 Differential Diagnosis altered mental status, sepsis. Data reviewed: vital signs, jr11 nurses notes, EMS record. 02:01 Differential Diagnosis EKG interpreted by me shows sinus tachycardia, normal axis, jr11 normal intervals, T wave inversions leads to aVF and also lateral leads V4 through V6. No STEMI.. Independent interpretation of the following test(s) in the Emergency Department. 02:17 Differential Diagnosis SBP. ED course: Per [facility] chart review, [facility], Cr baseline around jr11 2, so today he is NOHEMI. 02:18 ED course: h/h around 02/22 during last visit 01/19. jr11 02:42 Independent interpretation of the following test(s) in the Emergency Department X-Ray: jr11 My interpretation is extensive R sided PNA. 02:42 ED course: Arterial blood gas shows an acidosis 7.2 tube for pH CO2 of 21 with an O2 of jr11 77, will place on 4 L nasal cannula. Patient to be transferred to [facility] ICU bed. 08/04 01:32 Order name: Blood Culture Adult (2) [facility] 08/04 01:32 Order name: CBC with Diff; Complete Time: 02:36 08/04 01:32 Order name: CMP; Complete Time: 02:09 08/04 01:32 Order name: Lactate w/ 2H reflex if indic.; Complete Time: 02:11 08/04 01:32 Order name: Protime (+inr); Complete Time: 02:09 08/04 01:32 Order name: Ptt, Activated; Complete Time: 02:09 08/04 01:32 Order name: Urine Culture 08/04 01:32 Order name: Urine Microscopic Only; Complete Time: 04:39 08/04 01:32 Order name: D-Dimer; Complete Time: 02:09 jr11 08/04 01:55 Order name: Glucose, Ancillary Testing; Complete Time: 01:55 EDMS 08/04 02:02 Order name: COVID-19/FLU A+B/RSV; Complete Time: 04:09 jr11 08/04 02:14 Order name: Glucose, Ancillary Testing; Complete Time: 02:36 EDMS 08/04 02:19 Order name: ABG: venous gas; Complete Time: 02:57 jr11 08/04 01:32 Order name: Chest Single View XRAY jr11 08/04 01:32 Order name: EKG; Complete Time: 01:33 jr11 08/04 02:07 Order name: CT Chest Wo Con jr11 08/04 02:21 Order name: Chest Abd Pelvis Wo Con EDMS 08/04 02:22 Order name: Manual Differential; Complete Time: 02:36 EDMS 08/04 03:00 Order name: Glucose, Ancillary Testing; Complete Time: 03:02 EDMS 08/04 03:35 Order name: Glucose, Ancillary Testing; Complete Time: 04:09 EDMS 08/04 04:22 Order name: Glucose, Ancillary Testing; Complete Time: 04:39 EDMS 08/04 04:32 Order name: Urine Dipstick-Ancillary; Complete Time: 04:39 EDMS 08/04 01:32 Order name: Accucheck; Complete Time: 01:44 11 08/04 01:32 Order name: Cardiac monitoring; Complete Time: 01:44 11 08/04 01:32 Order name: EKG - Nurse/Tech; Complete Time: 01:44 08/04 01:32 Order name: IV Saline Lock - Large Bore; Complete Time: 01:44 08/04 01:32 Order name: Labs collected and sent; Complete Time: 01:44 08/04 01:32 Order name: O2 Per Protocol; Complete Time: 01:44 08/04 01:32 Order name: O2 Sat Monitoring; Complete Time: 01:44 08/04 01:32 Order name: Vital Signs; Complete Time: 01:44 08/04 02:11 Order name: Parnell; Complete Time: 02:35 jr Administered Medications: 01:43 Drug: D50W 50 ml Route: IVP; Site: right upper arm; 4 02:00 Follow up: Response: No adverse reaction 4 01:52 Drug: D10 in Water [2 mL/kg] 250 ml Route: IVP; Site: right upper arm; 4 02:00 Follow up: Response: No adverse reaction 4 02:05 Drug: DuoNeb (albuterol 2.5 mg, ipratropium 0.5 mg) (3:1) (2.5 mg - 0.5 mg) 3 ml Route: jb4 Nebulizer; 02:30 Follow up: Response: No adverse reaction 4 02:34 Drug: Cefepime 1 grams Route: IVPB; Rate: 200 ml/hr; Infused Over: 30 mins; Site: right jb4 upper arm; 03:04 Follow up: Response: No adverse reaction; IV Status: Completed infusion; IV Intake: jb4 100ml 02:35 Drug: Lactated Ringers Solution 500 ml Route: IV; Rate: bolus; Site: right upper arm; 4 03:35 Follow up: Response: No adverse reaction; Marked relief of symptoms; IV Status: jb4 Completed infusion; IV Intake: 500ml 03:45 Follow up: Response: No adverse reaction; IV Status: Completed infusion; IV Intake: aa9 500ml Disposition Summary: 08/04/22 02:57 Transfer Ordered Transfer Location: [place] [address] Reason: Higher level of care jr11 Condition: Critical jr11 Problem: new jr11 Symptoms: are unchanged jr11 Accepting Physician: [facility](08/04/22 04:53) jb4 Diagnosis - Bronchopneumonia, unspecified organism jr11 - Severe sepsis with septic shock jr11 - acute renal failure, hypoglycemia jr11 Forms: - Medication Reconciliation Form jr11 - SBAR form jr11 Critical care time excluding procedures: 02:42 Critical care time: Bedside Care: 15 minutes, Consultation: 10 minutes, Family jr11 Intervention: 6 minutes. Total time: 31 minutes Signatures: Dispatcher [employer] EDMS Naeem Giordano, ORESTESC BILINGUAL CUSTOMER SERVICE SPECIALIST-Cla1 Michael Valentin, RN RN jb4 Familia Servin MD MD jr11 Roxana Quijano RN aa9 Corrections: (The following items were deleted from the chart) 02:15 01:34 Constitutional: appears chronically ill Head/Face: Normocephalic, atraumatic. jr11 Eyes: Extra-ocular motions intact. Lids and lashes normal. Conjunctiva and sclera are non-icteric and not injected. Cornea within normal limits. Periorbital areas with no swelling, redness, or edema. ENT: Nares patent. No nasal discharge, no septal abnormalities noted. Oropharynx with no redness, swelling, or masses, exudates, or evidence of obstruction, uvula midline. Mucous membranes moist. Cardiovascular: tachy regular Respiratory: diminished diffusely with mild distress Abdomen/GI: Soft, non-tender, with normal bowel sounds. No distension or tympany. No guarding or rebound. No evidence of tenderness throughout. Back: No spinal tenderness. No costovertebral tenderness. Full range of motion. MS/ Extremity: Pulses equal, no cyanosis. Neurovascular intact. Full, normal range of motion. Neuro: Awake and alert, GCS 15, oriented to person, place, time, and situation. No gross motor or sensory deficits. jr11 02: 02:11 Abdomen Pelvis Wo Con+CT.RAD.BRZ ordered. EDMS EDMS : 02:13 Thorax Wo Con ordered. EDMS EDMS : 02:00 CBC Smear Scan ordered. EDMS EDMS 04:53 02:57 [facility] jr11 jb4
[2022-08-04 03:35] LABS: SARS-COV-2 RT PCR POSITIVE (NEGATIVE)
[2022-08-04 04:31] LABS: Urine Bacteria <20 /HPF (<20); Urine Mucus Slight /HPF (None Seen); Urine RBC <5 /HPF (None Seen); Urine Sperm Present (None Seen)
[2022-08-04 04:32] LABS: Urine Blood Negative (Negative); Urine Glucose Negative (Negative); Urine Protein 2+ (Negative); Urine Specific Gravity >=1.030 (1.005-1.030); Urine pH 5.5 (5.0-7.0)
[2022-08-04 05:00] VITALS: TEMP 97.5
[2022-08-04 05:02] VITALS: BP 125/56; O2SAT 100
--- NOTE | 2022-08-06 11:31 | RAD REPORT ---
EXAM DESCRIPTION: RAD - Chest Single View - 08/04/2022 2:27 am CLINICAL HISTORY: DYSPNEA COMPARISON: None. TECHNIQUE: XR CHEST 1 VIEW 08/04/2022 1:32 AM INDUSTRY ANALYST FINDINGS: The heart is enlarged. Sternotomy was performed. There is extensive airspace disease throu ghout much of the mid and lower right lung. There are probable pleural effusions. There is no pneumot horax. There are no acute osseous findings. IMPRESSION: Extensive right-sided pneumonia. Electronically signed by: Chance Greene MD 08/04/2022 2:36 AM INDUSTRY ANALYST Due to temporary technical issues with the PACS/Fluency reporting system, reports are being signed by the in house radiologists without review as a courtesy to insure prompt reporting. The interpreting radiologist is fully responsible for the content of the report.
--- NOTE | 2022-08-06 11:37 | RAD REPORT ---
EXAM DESCRIPTION: CT - Chest Abd Pelvis Wo Con - 08/04/2022 6:42 am CLINICAL HISTORY: 67 years Male acute dyspnea, h/o lung transplant, abd pain. TECHNIQUE: CT imaging of the chest, abdomen and pelvis without intravenous contrast administration. Sagittal and coronal reconstructed images were performed. The CT study is performed according to ALAR A (as low as reasonably achievable) or ALARA/IMAGE GENTLY, with automatic adjustment of mA and/or kV according to patient size. Performed on: 08/04/2022 at 3:11 AM COMPARISON: No prior studies were available for comparison. FINDINGS: CHEST: Lungs: There are trace bilateral pleural effusions. There is airspace consolidation in the right lowe r lobe with air bronchograms and there is patchy airspace disease throughout the right upper lobe and right middle lobe. Multifocal pneumonia is not excluded. There is mild left basilar dependent atelec tasis. There is no pneumothorax. The central airways are patent. Heart: The heart is enlarged. There is no pericardial effusion. There are remote postsurgical [place] nges of the mediastinum. There are mild coronary artery calcification. Mediastinum: The mediastinum is unremarkable. The mediastinal vessels are normal in caliber and con tour. There are mild atherosclerotic calcifications along the thoracic aorta. Bones: There is a comminuted nondisplaced fracture of the mid left clavicle. Soft tissues: No focal soft tissue abnormalities are identified. There is a small hiatal hernia. Lymphadenopathy: No pathologic hilar, mediastinal or axillary lymphadenopathy is identified. ABDOMEN/PELVIS: Liver: The liver is small and nodular in contour which may be due to underlying hepatocellular diseas e such as cirrhosis. No focal hepatic abnormalities are identified. There is decreased attenuation of the liver which can be seen with fatty infiltration. The portosystemic shunt is present.. Spleen: The spleen is enlarged and measures approximately 14.7 cm in cranial caudal dimension. No foc al splenic abnormalities are identified. The splenic vein is enlarged. Gallbladder and bile duct: The gallbladder is well distended and contains gallstones. There is no b iliary ductal dilatation. Pancreas: The pancreas is grossly normal in size and configuration. Adrenal Glands: The adrenal glands are normal in size and configuration. Kidneys: The kidneys are normal in size and configuration. There is no evidence of hydronephrosis. Th ere is no evidence of nephrolithiasis. No definite solid or cystic renal mass lesions are identified. There is stranding of the perinephric fat bilaterally which is nonspecific but can be seen with [employer] renal disease. Stomach: The stomach is grossly normal. There is a small hiatal hernia. Bowel: The bowel gas pattern is non specific and non obstructive. There is colonic diverticulosis. Th ere is mild diffuse colonic wall thickening which may be due to underlying colitis. The presence of a scites could result in bowel wall thickening. The small bowel is normal in caliber and contour. Appendix: There is no CT evidence to suggest acute appendicitis. Free air: There is no evidence of free air. Free fluid: There is a small volume of ascites in the abdomen and pelvis. This is likely related to u nderlying hepatocellular disease Vasculature: The aorta is normal in caliber and contour. The inferior vena cava is grossly unremarkab le. There are mild atherosclerotic calcifications along the abdominal aorta and iliac arteries. Lymphadenopathy: No pathologic lymphadenopathy is identified. Bladder: The bladder is decompressed due to the presence of a Parnell catheter. Reproductive: The prostate gland is grossly within normal limits. Bones: No acute osseous abnormalities are identified. Soft tissues: No focal soft tissue abnormalities are identified. IMPRESSION: CT CHEST: 1. Airspace consolidation in the right lower lobe with air bronchograms and patchy airspace disease throughout the right upper lobe and right middle lobe. Findings are concerning for multifocal pneumo ju. 2. Trace bilateral pleural effusions. 3. Cardiomegaly. 4. Comminuted nondisplaced fracture of the mid left clavicle. CT ABDOMEN AND PELVIS: 1. Small nodular liver which can be seen with underlying hepatocellular disease such as cirrhosis. A portosystemic shunt is present. 2. Splenomegaly. 3. Small volume of ascites in the abdomen and pelvis likely related to underlying hepatocellular di sease. 4. Cholelithiasis. 5. Colonic diverticulosis. 6. Mild diffuse colonic wall thickening which may be due to underlying colitis. The presence of asc ites could result in bowel wall thickening. 7. Stranding of the perinephric fat bilaterally which is nonspecific but can be seen with chronic m edical renal disease. 8. Small hiatal hernia. Electronically signed by: Awa Alexis DO 08/04/2022 4:30 AM OCCUPATIONAL HEALTH NURSE Due to temporary technical issues with the PACS/Fluency reporting system, reports are being signed by the in house radiologists without review as a courtesy to insure prompt reporting. The interpreting radiologist is fully responsible for the content of the report.
== END 2022-08-04 04:53 | disposition short-term general hospital (02) ==
LOC: ER 01:25
DX: A41.9 Sepsis, unspecified organism (principal); J18.0 Bronchopneumonia, unspecified organism; R65.21 Severe sepsis with septic shock; U07.1 COVID-19; N17.9 Acute kidney failure, unspecified; E16.2 Hypoglycemia, unspecified; Z94.2 Lung transplant status
CPT/HCPCS: 96365; 96361; 93005; 87040 ×2; 87088; 85025; 87086; 36415; 87205 ×3; 85610; 82947 ×5; 85379; 83605 ×2; 85730; 87077 ×2; 87186 ×2; 80053; 0241U; 71250; 74176; 71045; 94640; 82805; 51702; 96375; 99285; J7613; J7644; J7120; J0692; 81003; 81015